=== PATIENT | male | born 1955 | race Caucasian/White ===

== ENCOUNTER → 2023-07-07 | Outpatient (REF) | payer OTHER, SELFPAY ==
[2023-07-07 08:27] LABS: Hemoglobin 10.5 g/dL (13.0-16.5); Mean Corpuscular Hgb 27.6 pg (27.0-32.0); Mean Corpuscular Volume 92.1 fL (80-94); Mean Platelet Vol. 11.3 fl (6.2-12.0); Platelet Count 181 K/mm3 (150-450); RBC Distribution Width CV 18.5 % (11.6-14.6); RBC Distribution Width SD 63.1 fl (35.1-43.9); White Blood Count 4.9 K/mm3 (4.4-11.0)
[2023-07-07 08:50] LABS: Vitamin D,25 Hydroxy 79.7 ng/mL
[2023-07-07 08:55] LABS: ALB/GLOB Ratio 0.9 RATIO (0.9-2.4); AST(SGOT) 16 U/L (15-37); Alanine Aminotransfer ALT/SGPT 35 U/L (16-61); Albumin, Serum 2.6 g/dL (3.2-5.0); Alkaline Phosphatase 57 U/L (45-117); Anion Gap 6 (5-15); BUN 13 mg/dL (7-18); Calcium,Total 8.4 mg/dL (8.5-10.1); Chloride 103 mmol/L (98-107); Cholesterol 144 mg/dL (200); Creatinine, Serum 0.72 mg/dL (0.70-1.30); EST Glomerular Filtration Rate 115 mL/min (>60); Est Glom Filt Rate - Afr Amer 140 mL/min (>60); Glucose 97 mg/dL (74-106); High Density Lipoprotein 57 mg/dL; Potassium 3.7 mmol/L (3.5-5.1); Protein, Total 5.6 g/dL (6.4-8.2); Sodium Level 140 mmol/L (136-145); T4 Free Direct 1.24 ng/dL (0.76-1.46); Thyroid Stim Hormone (TSH) 8.69 uIU/mL (0.358-3.74); Triglycerides 68 mg/dL; Very Low Density Lipoprotein 14 mg/dL (5-40)
== END ==
PROVIDERS: Visit Provider Family Medicine
DX: E78.5 Hyperlipidemia, unspecified (principal); E55.9 Vitamin D deficiency, unspecified; I10 Essential (primary) hypertension; C90.02 Multiple myeloma in relapse; E03.9 Hypothyroidism, unspecified; Z79.899 Other long term (current) drug therapy
CPT/HCPCS: 36415; 80053; 80061; 82306; 84439; 84443; 85027

== ENCOUNTER 2023-07-17 03:50 | Emergency (ER) | payer OTHER, SELFPAY ==
[2023-07-17 03:51] VITALS: BP 135/92; PULSE 82; RESP 16; TEMP 36.6; O2SAT 99
--- NOTE | 2023-07-17 04:19 | EX.ED.DYSGE1 ---
HPI History of Present Illness Chief Complaint: Complaint Informant: patient and EMS Narrative Narrative: Patient is a 68-year-old male from assisted living with history of multiple myeloma and chronic urinary retention with chronic indwelling Humphries catheter. He states that he emptied his catheter with his shower this evening around 6 or 7 PM. He states after that he had mild increasing pain to his abdomen and noticed that his catheter was not flowing. He states around 3 in the morning the pain became more severe and he noticed that there was still no urine within the bag and therefore was concerned that his catheter had become dislodged or blocked EMS was called to bring the patient in for evaluation [facility] Medical History (Updated 07/17/23 @ 07:[address] Migue Metcalf, DO) Anemia Back pain DVT (deep venous thrombosis) Hypercholesteremia Hypertension Hypothyroidism Multiple myeloma Paraplegia Home Medications acetaminophen 500 mg capsule 500 mg PO Q6H PRN fever or pain 07/08/23 [History Last Taken Unknown] acyclovir 400 mg tablet 400 mg PO Q12H 07/08/23 [History Last Taken Unknown] amlodipine 10 mg tablet 10 mg PO DAILY 07/08/23 [History Last Taken Unknown] ascorbic acid (vitamin C) 1,000 mg tablet 1 g PO Q6H 07/08/23 [History Last Taken Unknown] atorvastatin 10 mg tablet 10 mg PO DAILY 07/08/23 [History Last Taken Unknown] cholecalciferol (vitamin D3) 125 mcg (5,000 unit) capsule 125 mcg PO DAILY 07/08/23 [History Last Taken Unknown] dexamethasone 4 mg tablet 10 mg PO QWEEK 07/08/23 [History Last Taken Unknown] diphenhydramine HCl 25 mg capsule (Benadryl) 25 mg PO ONCE PRN itching 07/08/23 [History Last Taken Unknown] gabapentin 100 mg capsule 100 mg PO TID 07/08/23 [History Last Taken Unknown] ibuprofen 400 mg tablet 400 mg PO Q8H PRN pain 07/08/23 [History Last Taken Unknown] magnesium oxide 800 mg PO QHS 07/08/23 [History Last Taken Unknown] melatonin 3 mg capsule 6 mg PO HS 07/08/23 [History Last Taken Unknown] metoprolol tartrate 50 mg tablet 50 mg PO BID 07/08/23 [History Last Taken Unknown] omeprazole 20 mg tablet,delayed release 20 mg PO DAILY 07/08/23 [History Last Taken Unknown] oxycodone 5 mg tablet 5 mg PO Q6H PRN pain 07/08/23 [History Last Taken Unknown] sennosides 8.6 mg-docusate sodium 50 mg tablet (Senna Plus) 1 tab-cap PO BID 07/08/23 [History Last Taken Unknown] simethicone 80 mg chewable tablet (Gas Relief (simethicone)) 80 mg PO TID PRN abdominal distention 07/08/23 [History Last Taken Unknown] Disability Placard #1 ea 07/12/23 [Rx Last Taken Unknown] ferrous sulfate 325 mg (65 mg iron) tablet 325 mg PO DAILY 07/12/23 [History Last Taken Unknown] apixaban 5 mg tablet (Eliquis) 5 mg PO BID 07/17/23 [History Last Taken Unknown] Allergy/AdvReac Type Severity Reaction Status Date / Time No Known Allergies Allergy Verified 07/17/23 03:54 Family History (Updated 07/12/23 @ 10:27 by Lia Franz) Mother Follicular lymphoma Father Hypertension Heart disease Brother Hypertension Other Cancer Surgical History H/O laminectomy History of cholecystectomy Social History (Updated 07/12/23 @ 10:28 by Lia Franz) housing: assisted living facility Smoking Status: Never smoker alcohol intake: former ROS ROS ED Constitutional Constitutional ED: Denies chills or fever(s) ENT ENT ED: Denies sore throat Cardiovascular Cardiovascular: Denies chest pain Respiratory/Chest Respiratory/Chest: Denies cough or dyspnea Gastrointestinal Gastrointestinal: Reports abdominal pain; Denies diarrhea, nausea or vomiting Musculoskeletal Musculoskeletal: Denies back pain Integumentary Denies rash Neurologic Neurologic: Denies headache(s) Hematologic/Lymphatic Hematologic/Lymphatic: Reports easy bleeding and easy bruising EXAM Physical Exam Const Vital Signs: 07/17/23 03:51 Temperature 97.9 F Temperature Source Temporal Pulse Rate 82 Respiratory Rate 16 Blood Pressure 135/92 H Blood Pressure Mean 106 Pulse Ox 99 Oxygen Delivery Method Room Air Positive well nourished and well developed General Appearance ED: well developed HEENT HEENT Narrative: Normocephalic atraumatic Eyes PERRL and EOMs intact bilaterally General Eye ED: Negative for scleral icterus Neck supple Resp normal respiratory effort and clear to auscultation bilaterally Cardio regular rate and regular rhythm GI non-distended GI Narrative: Abdomen is overall soft with the exception of midline lower abdominal distention in the suprapubic region consistent with a distended bladder. There is pain on palpation at the site. Remainder of the abdominal exam is nontender and soft with normal active bowel sounds. No guarding or pulsatile mass noted Auscultation: normoactive bowel sounds Palpation: soft Narrative: No blood or discharge from the urethral meatus no testicular swelling or masses noted no soft tissue changes to suggest Marcelo's gangrene Back/Spine no CVA tenderness Extremity normal to inspection Neuro oriented x3 and CN's II-XII intact bilaterally Sensorium / Orientation: alert Psych mental status grossly normal Skin no rashes or lesions noted MDM MDM MDM Narrative Medical decision making narrative: Patient presented to the ER hypertensive otherwise with stable vitals. History and exam is consistent with a displacement or clogging of his Humphries catheter tubing. Secondary to this the catheter was removed and a new one placed. Following placement of the catheter there was 500 cc of clear urine obtained and resolution of the patient's organomegaly and abdominal pain. As patient's only had obstruction/retention for a few hours concern for acute kidney injury is low and therefore do not feel need for basic laboratory studies. At this time with improvement of pain and resolution of his retention there is no need for further evaluation in the ER patient is otherwise safe for discharge back to assisted living. History & Record Review Discussion w/independent historian: Patient Discharge Plan Triage Chief Complaint: Complaint ED Provider: Migue Metcalf Dx/Rx/DC Orders Clinical Impression: Humphries catheter problem, Acute on chronic urinary retention, Hypertension, Multiple myeloma Instructions: ED Humphries Catheter, Care, ED Urinary Retention, Male Prescriptions: No Action ferrous sulfate 325 mg (65 mg iron) tablet 325 mg PO DAILY acetaminophen 500 mg capsule 500 mg PO Q6H PRN (Reason: fever or pain) acyclovir 400 mg tablet 400 mg PO Q12H amlodipine 10 mg tablet 10 mg PO DAILY atorvastatin 10 mg tablet 10 mg PO DAILY diphenhydramine HCl [Benadryl] 25 mg capsule 25 mg PO ONCE PRN (Reason: itching) Rx Instructions: 1 hour before Darzalex injection dexamethasone 4 mg tablet 10 mg PO QWEEK Rx Instructions: Take prior to coming to office for treatment gabapentin 100 mg capsule 100 mg PO TID ibuprofen 400 mg tablet 400 mg PO Q8H PRN (Reason: pain) magnesium oxide 400 mg magnesium tablet 800 mg PO QHS melatonin 3 mg capsule 6 mg PO HS metoprolol tartrate 50 mg tablet 50 mg PO BID omeprazole 20 mg tablet,delayed release (DR/EC) 20 mg PO DAILY oxycodone 5 mg tablet 5 mg PO Q6H PRN (Reason: pain) sennosides-docusate sodium [Senna Plus] 8.6-50 mg tablet 1 tab-cap PO BID simethicone [Gas Relief (simethicone)] 80 mg tablet,chewable 80 mg PO TID PRN (Reason: abdominal distention) ascorbic acid (vitamin C) 1,000 mg tablet 1 g PO Q6H cholecalciferol (vitamin D3) 125 mcg (5,000 unit) capsule 125 mcg PO DAILY Eliquis 5 mg tablet 5 mg PO BID (DME) Disability Placard See Rx Instructions .Route .MEDSUPPLY Qty: 1 0RF Rx Instructions: Lifetime Primary Care Provider: Iraida Balderas Referrals: Iraida Balderas MD [Primary Care Provider] - Disposition Disposition: Home, Self Care Discharge Date/Time: 07/17/23 06:57
--- NOTE | 2023-07-17 05:25 | ED.RN ---
report to jacque lowe
== END 2023-07-17 06:57 | disposition home or self-care (01) ==
PROVIDERS: Emergency Provider Emergency Medicine; PCP Family Medicine; Visit Provider Emergency Medicine
DX: T83.018A Breakdown (mechanical) of other urinary catheter, initial encounter (principal); C90.00 Multiple myeloma not having achieved remission; R33.9 Retention of urine, unspecified; I10 Essential (primary) hypertension; E78.00 Pure hypercholesterolemia, unspecified; Z90.49 Acquired absence of other specified parts of digestive tract
CPT/HCPCS: 51702; 99285

== ENCOUNTER → 2023-08-04 | Outpatient (CLI) | payer MEDICARE, SELFPAY ==
--- NOTE | 2023-08-04 08:40 | RAD_ITS ---
EXAM: XR BONE SURVEY, COMPLETE CLINICAL INDICATION: MULTIPLE MYELOMA ON TREATMENT TECHNIQUE: Multiple views of the bones of the axial and appendicular skeleton. COMPARISON: No relevant prior studies available. FINDINGS: BONES/JOINTS: There is hardware in the upper thoracic spine show posterior fusion. There is a chronic compression deformity of a midthoracic vertebral body. SOFT TISSUES: Unremarkable. RAD/Bone Survey Comp(Axial&Append) IMPRESSION: No acute findings in the skeleton. Electronically Signed: Joss Mcclendon MD at 23:57 EST ,
== END | disposition home or self-care (01) ==
PROVIDERS: PCP Family Medicine; Referring Provider Internal Medicine Hematology & Oncology; Visit Provider Internal Medicine Hematology & Oncology
DX: C90.00 Multiple myeloma not having achieved remission (principal)
CPT/HCPCS: 77075

== ENCOUNTER → 2023-08-06 | Outpatient (REF) | payer MEDICARE, SELFPAY ==
[2023-08-06 07:50] LABS: Hematocrit 34.1 % (40-54); Hemoglobin 10.4 g/dL (13.0-16.5); Mean Corp Hgb Conc 30.5 g/dL (32-36); Mean Corpuscular Hgb 27.5 pg (27.0-32.0); Mean Corpuscular Volume 90.2 fL (80-94); Mean Platelet Vol. 10.2 fl (6.2-12.0); Platelet Count 223 K/mm3 (150-450); RBC Distribution Width CV 17.5 % (11.6-14.6); RBC Distribution Width SD 57.7 fl (35.1-43.9); Red Blood Count 3.78 M/mm3 (4.6-6.2); White Blood Count 10.8 K/mm3 (4.4-11.0)
[2023-08-06 08:10] LABS: AST(SGOT) 7 U/L (15-37); Alanine Aminotransfer ALT/SGPT 14 U/L (16-61); Albumin, Serum 2.9 g/dL (3.2-5.0); Alkaline Phosphatase 52 U/L (45-117); Anion Gap 3 (5-15); BUN 20 mg/dL (7-18); Calcium,Total 8.9 mg/dL (8.5-10.1); Chloride 106 mmol/L (98-107); EST Glomerular Filtration Rate 103 mL/min (>60); Est Glom Filt Rate - Afr Amer 124 mL/min (>60); Globulin 2.9 g/dL (2.2-4.2); Glucose 119 mg/dL (74-106); Potassium 4.2 mmol/L (3.5-5.1); Protein, Total 5.8 g/dL (6.4-8.2); Sodium Level 140 mmol/L (136-145)
== END ==
PROVIDERS: PCP Family Medicine; Visit Provider Family Medicine
DX: R33.9 Retention of urine, unspecified (principal); C90.02 Multiple myeloma in relapse; K21.9 Gastro-esophageal reflux disease without esophagitis; C79.52 Secondary malignant neoplasm of bone marrow; I10 Essential (primary) hypertension; E78.5 Hyperlipidemia, unspecified
CPT/HCPCS: 36415; 80053; 85027

== ENCOUNTER → 2023-08-13 | Outpatient (REF) | payer OTHER, SELFPAY ==
[2023-08-13 08:16] LABS: Hemoglobin 9.8 g/dL (13.0-16.5); Mean Corp Hgb Conc 30.6 g/dL (32-36); Mean Corpuscular Hgb 27.9 pg (27.0-32.0); Mean Corpuscular Volume 91.2 fL (80-94); Platelet Count 143 K/mm3 (150-450); RBC Distribution Width CV 17.7 % (11.6-14.6); RBC Distribution Width SD 59.4 fl (35.1-43.9); Red Blood Count 3.51 M/mm3 (4.6-6.2); White Blood Count 3.3 K/mm3 (4.4-11.0)
[2023-08-13 11:15] LABS: AST(SGOT) 7 U/L (15-37); Alanine Aminotransfer ALT/SGPT 14 U/L (16-61); Albumin, Serum 2.7 g/dL (3.2-5.0); Alkaline Phosphatase 53 U/L (45-117); Anion Gap 6 (5-15); BUN 13 mg/dL (7-18); BUN/Creat Ratio 16.8 RATIO (10-20); Calcium,Total 8.5 mg/dL (8.5-10.1); Chloride 107 mmol/L (98-107); Creatinine, Serum 0.77 mg/dL (0.70-1.30); EST Glomerular Filtration Rate 107 mL/min (>60); Est Glom Filt Rate - Afr Amer 130 mL/min (>60); Globulin 2.7 g/dL (2.2-4.2); Glucose 101 mg/dL (74-106); Potassium 3.9 mmol/L (3.5-5.1); Prealbumin 19.8 mg/dL (20.0-40.0); Protein, Total 5.4 g/dL (6.4-8.2); Sodium Level 142 mmol/L (136-145); Thyroid Stim Hormone (TSH) 2.79 uIU/mL (0.358-3.74)
== END ==
PROVIDERS: PCP Family Medicine; Visit Provider Family Medicine
DX: I10 Essential (primary) hypertension (principal); E78.5 Hyperlipidemia, unspecified; E03.9 Hypothyroidism, unspecified; C90.20 Extramedullary plasmacytoma not having achieved remission; C79.52 Secondary malignant neoplasm of bone marrow; Z79.899 Other long term (current) drug therapy
CPT/HCPCS: 36415; 80053; 84134; 84443; 85027

== ENCOUNTER 2023-08-26 10:45 | Outpatient (RCR) | payer MEDICARE, SELFPAY ==
[2023-08-12 09:02] VITALS: BP 92/40; PULSE 55; RESP 16; TEMP 36.4; BMI 27.4
--- NOTE | 2023-08-12 11:52 | HP.PCM_ITS ---
History of Present Illness Date of Service: 08/12/23 Chief Complaint: Non healing surgical wound History of Wound: Mr. Barron is a 68-year-old who was referred to this facility due to nonhealing surgical wound. Had surgery in October due to multiple myeloma. Surgery was uneventful with most of the surgical site healed but 2 areas which have not healed. He states that he has had wound dressings down to the area including a wound VAC. Not particularly sure what can address since he has had. He is not sure how much drainage he is getting from the area either. Currently resides in an assisted living facility. Still follows up closely with oncology and is on monthly chemotherapy regimen and dexamethasone. Had also had radiation therapy to the area. He feels well otherwise. States that he eats good. [facility] Medical History (Updated 08/12/23 @ 13:[address] Te Shah MD) Anemia Back pain DVT (deep venous thrombosis) History of radiation therapy Hypercholesteremia Hypertension Hypothyroidism Multiple myeloma Non-healing surgical wound Paraplegia Home Medications acetaminophen 500 mg capsule 500 mg PO Q6H PRN fever or pain 07/08/23 [History Last Taken Unknown] acyclovir 400 mg tablet 400 mg PO Q12H 07/08/23 [History Last Taken Unknown] amlodipine 10 mg tablet 10 mg PO DAILY 07/08/23 [History Last Taken Unknown] ascorbic acid (vitamin C) 1,000 mg tablet 1 g PO BID 07/08/23 [History Last Taken Unknown] cholecalciferol (vitamin D3) 125 mcg (5,000 unit) capsule 125 mcg PO DAILY 07/08/23 [History Last Taken Unknown] diphenhydramine HCl 25 mg capsule (Benadryl) 25 mg PO ONCE PRN itching 07/08/23 [History Last Taken Unknown] gabapentin 100 mg capsule 100 mg PO TID 07/08/23 [History Last Taken Unknown] ibuprofen 400 mg tablet 400 mg PO Q8H PRN pain 07/08/23 [History Last Taken Unknown] magnesium oxide 250 mg PO QHS 07/08/23 [History Last Taken Unknown] melatonin 3 mg capsule 6 mg PO HS 07/08/23 [History Last Taken Unknown] metoprolol tartrate 50 mg tablet 50 mg PO BID 07/08/23 [History Last Taken Unknown] omeprazole 20 mg tablet,delayed release 20 mg PO DAILY 07/08/23 [History Last Taken Unknown] oxycodone 5 mg tablet 5 mg PO Q6H PRN pain 07/08/23 [History Last Taken Unknown] sennosides 8.6 mg-docusate sodium 50 mg tablet (Senna Plus) 1 tab-cap PO BID 07/08/23 [History Last Taken Unknown] simethicone 80 mg chewable tablet (Gas Relief (simethicone)) 80 mg PO TID PRN abdominal distention 07/08/23 [History Last Taken Unknown] Disability Placard #1 ea 07/12/23 [Rx Last Taken Unknown] ferrous sulfate 325 mg (65 mg iron) tablet 325 mg PO DAILY 07/12/23 [History Last Taken Unknown] apixaban 5 mg tablet (Eliquis) 5 mg PO BID 07/17/23 [History Last Taken Unknown] dexamethasone 4 mg tablet 20 mg (5 x 4 mg) PO .COMPLEX #30 tabs 08/04/23 [Rx Last Taken Unknown] baclofen 5 mg tablet 5 mg PO BID 08/12/23 [History Last Taken Unknown] benzonatate 200 mg capsule 200 mg PO TID 08/12/23 [History Last Taken Unknown] calcium carbonate 600 mg calcium (1,500 mg) tablet 600 mg PO BID 08/12/23 [History Last Taken Unknown] lenalidomide 15 mg capsule (Revlimid) 15 mg PO .Q21 DAYS 08/12/23 [History Last Taken Unknown] levothyroxine 100 mcg tablet (Levo-T) 100 mcg PO DAILY 08/12/23 [History Last Taken Unknown] magnesium hydroxide 400 mg/5 mL oral suspension (Milk of Magnesia) 30 ml PO DAILY PRN constipation 08/12/23 [History Last Taken Unknown] polyethylene glycol 3350 17 gram/dose oral powder (ClearLax) 17 g PO DAILY 08/12/23 [History Last Taken Unknown] Allergy/AdvReac Type Severity Reaction Status Date / Time No Known Allergies Allergy Verified 08/12/23 09:19 Family History Mother Follicular lymphoma Father Hypertension Heart disease Brother Hypertension Other Cancer Surgical History H/O laminectomy History of cholecystectomy Social History housing: assisted living facility Smoking Status: Never smoker alcohol intake: former ROS Constitutional Constitutional: Denies excessive sweating, fatigue, headache(s), lethargy or poor appetite Eyes Eyes: Denies change in vision, discharge from eye(s), double vision, excessive blinking, exophthalmos, itchy eyes or loss of vision ENT HEENT: Denies disequillibrium, dizziness, epistaxis, foreign body in nose, hearing loss, hoarseness, lip swelling or loss taste/smell Cardiovascular Cardiovascular: Denies bluish discoloration of hand/feet, cold extremities, cyanosis, dizziness or erythema on extremities Respiratory/Chest Respiratory/Chest: Denies excessive phlegm production, hemoptysis, hoarseness, inability to speak, mouth breathing, nail bed cyanosis or pain with cough Gastrointestinal Gastrointestinal: Denies chewing difficulty, coffee ground emesis, cramping, dry heaves, early satiety or excessive flatus Genitourinary Genitourinary: Denies abdominal discomfort or flank pain Musculoskeletal Musculoskeletal: Denies atrophy, extremity pain, joint swelling, muscle cramps or tremors Integumentary Integumentary: Denies change in pigmentation, erythema, furuncle, nail changes or skin pain Neurologic Neurologic: Denies behavior changes, convulsions, disequilibrium, dizziness, headache(s), memory loss or numbness Psychiatric Psychiatric: Denies anxiety, auditory hallucinations, behavioral changes, panic attacks, tactile hallucinations or visual hallucinations Endocrine Endocrinology: Denies cold intolerance, deepening of the voice, excessive sweating, fatigue, increase in ring/shoe/hat size or palpitations Allergic/Immunologic Allergic/Immunologic: Denies itchy eyes, lip swelling, throat swelling, tongue swelling, eczemia or wheezing Vital Signs Vital Signs Vital Signs: 08/12/23 09:02 Temperature 97.6 F L Temperature Source Temporal Pulse Rate 55 L Respiratory Rate 16 Blood Pressure 92/40 L Blood Pressure Mean 57 Blood Pressure Source Monitor Blood Pressure Position Sitting Blood Pressure Location Right Arm Oxygen Delivery Method Room Air Weight Weight: 165 lb Body Mass Index (BMI) 27.4 Physical Exam Narrative ECOG 2, seen with his sister, wheelchair-bound Const alert, oriented x3 and no apparent distress General Appearance: cooperative, well kempt and well developed HEENT normocephalic and head/scalp atraumatic Face and Sinus: normal facial exam Eyes EOMs intact bilaterally General Eye: normal appearance of both eyes Neck full ROM General: normal visual inspection Resp normal respiratory effort, normal air movement and clear to auscultation bilaterally Effort and Inspection: able to speak in complete sentences Cardio regular rate and regular rhythm GI soft to palpation, non-tender and non-distended Bladder / Kidney Exam: catheter in place Extremity General Extremity: cyanosis and edema Skin Wounds: wounds noted Neuro oriented x3 and CN's II-XII intact bilaterally Neuro Narrative: Patient is paraplegic, unable to left leg off the floor to the wheelchair foot rest and needed assistance from his sister Speech: speech normal Gait (Neuro): unable to assess gait and other Wheelchair-bound Psych mental status grossly normal, thought process normal, cooperative, affect normal and speech normal Debridement Note Debridement Note Wound debrided: Upper back (superior cervical) Type of Debridement: Excisional debridement Anesthesia Used: 5% Lidocaine Gel Depth: Down to and including healthy tissue and in the subcutaneous layer Percentage of wound debrided: 100 Instrument Used: 5mm curette Tissue Removed: Slough and devitalized tissue Severity: Fat Layer Exposed Bleeding Controlled with: Pressure and Compression and gauze Patient tolerated procedure: Patient tolerated procedure well Post-Debridement Measurements and Additional Note: Post-Debridement Measurements/Treatment - Nurse 1 - General Ulcer Assessment Start: 08/12/23 09:02 Freq: Status: Active Protocol: RAUL Activity Type Activity Date Activity User E-sign Co-sign Detail Recorded Client Recorded Date Recorded By Document 08/12/23 09:02 [facility] Desktop 08/12/23 09:17 [facility] 08/12/23 09:02 - Today's Visit Information Type of service Follow-up Visit (Physician/CLEAT THROWER ) Arrival Mode Wheelchair Transfer Assistance None Patient Identification Verified (Name & Yes ) Patient Requires Transmission-Based No Precautions Height and Weight Height 5 ft 5 in Weight 165 lb Weight in Pounds 165.0 lbs Body Mass Index (BMI) 27.4 BMI Classification Overweight BSA - Sean 1.82 Vital Signs Temperature (97.8 F-99.1 F) 97.6 F L Temperature Source Temporal Pulse Rate (60-100) 55 L Pulse Location Monitor Respiratory Rate (12-18) 16 Respiratory rate source Observation Oxygen Delivery Method Room Air Blood Pressure (90/60-120/80) 92/40 L Blood Pressure Mean 57 Source Monitor Position Sitting Blood Pressure Location Right Arm History Since Last Visit- (Skip if this is Patient's initial visit) Left Footwear Regular Shoe Right Footwear Regular Shoe Pain Scale: 0-10 Numeric Is Patient Pain Free? Yes Communication Assessment Preferred language [place]i [employer] Required No Able to Read Yes Able to Write Yes Communication Tools None Right Hearing Abillity Normal Left Hearing Abillity Normal Visual Assistive Devices Glasses Teaching Assessment Preferences Verbal,Written, Audio/Visual, Demonstration Barriers to Learning None Readiness To Learn Excellent Willingness to Engage in Self Management High Activies Readiness to Engage in Self Management High Activities Anxiety Level Calm Cooperation Cooperative Perception Coherent Interest in Health Problem Asks Questions Education Importance Acknowledges Need Does Patient Smoke tobacco or other No substances Smoking Status Never smoker Is Patient Diabetic No Culture/Tenriism/Linemarker Cultural/Tenriism Needs that may affect No Treatment Plan Teaching: Wound Center *Welcome to the Wound Center -Person Taught Patient -Teaching Method Discussion -Response to teaching Verbalize understanding Welcome to the Wound Care Center Sami WC - Nurse 1 - General Ulcer Measurement Start: 08/12/23 09:02 Freq: Status: Active Protocol: Activity Type Activity Date Activity User E-sign Co-sign Detail Recorded Client Recorded Date Recorded By Document 08/12/23 09:02 [facility] Desktop 08/12/23 09:17 [facility] 08/12/23 09:02 Wound Center Nurse 1 #2- CERVICAL INFERIOR WOUND (SURGICAL) -Combined with other wound No -Current Size (cm) - Length 0.6 -Current Size (cm) - Width 0.5 -Current Size (cm) - Depth 0.8 -Total Square Cm 0.30 -Date of Last Picture (Recall this 08/12/23 field) -Photo Taken Yes -Epithelialization None Present -Tunneling No -Undermining/Tunneling No -Circular Undermining No -Exudate Amt Large -Exudate Type Serosanguineous -Wound Margin Distinct, Outline Attached -Granulation Amt Large (67-100%) -Granulation Quality Red -Structure Exposed Fat Layer Exposed -Texture (Ritika-wound Skin Appearance) Assessed, Scarring -Moisture (Ritika-wound Skin Appearance) Assessed -Color (Ritika-wound Skin Appearance) Assessed -Temperature (Ritika-wound Skin No Abnormality Appearance) (Pt Warm) -Tenderness on Palpation (Ritika-wound No Skin Appearance) -Ulcer Cleansing Soap and Water -Foul Odor after Cleansing No -Anesthetic Used 5% Lidocaine Gel #1- SUPERIOR CERIVICAL SPINE (SURGICAL) -Combined with other wound No -Current Size (cm) - Length 2.3 -Current Size (cm) - Width 1.3 -Current Size (cm) - Depth 0.1 -Total Square Cm 2.99 -Date of Last Picture (Recall this 08/12/23 field) -Photo Taken Yes -Epithelialization None Present -Tunneling No -Undermining/Tunneling No -Circular Undermining No -Exudate Amt Large -Exudate Type Serosanguineous -Wound Margin Distinct, Outline Attached -Structure Exposed Fat Layer Exposed -Texture (Ritika-wound Skin Appearance) Assessed, Scarring -Moisture (Ritika-wound Skin Appearance) Assessed -Color (Ritika-wound Skin Appearance) Assessed -Temperature (Ritika-wound Skin No Abnormality Appearance) (Pt Warm) -Tenderness on Palpation (Ritika-wound No Skin Appearance) -Ulcer Cleansing Soap and Water -Foul Odor after Cleansing No -Anesthetic Used 5% Lidocaine Gel WC - Nurse 2 - General Ulcer CM Notes Start: 08/12/23 09:02 Freq: Status: Active Protocol: Activity Type Activity Date Activity User E-sign Co-sign Detail Recorded Client Recorded Date Recorded By Document 08/12/23 09:32 [facility] Desktop 08/12/23 09:47 [facility] 08/12/23 09:32 Wound Center Nurse 2 #2- CERVICAL INFERIOR WOUND (SURGICAL) -Time 09:32 -Correct Patient Yes -Correct Side, Site, Position Yes -Correct Procedure Yes -Procedure Performed Yes -Type of Procedure Debridement -Clinical Debridement Subcutaneous -Tissue Removed Subcutaneous -Post Debridement (cm) - Length 0.6 -Post Debridement (cm) - Width 0.7 -Post Debridement (cm) - Depth 2.5 -Total Square (Post) (cm) 0.42 -Area of Debridement (cm) - Length 0.6 -Area of Debridement (cm) - Width 0.7 -Total Square (Area) (cm) 0.42 -Tunneling No -Undermining/Tunneling No -Circular Undermining No -Wound/Ulcer Outcome Not Healed -Ulcer Cleansing Rinsed/ Irrigated with Saline -Foul Odor after Cleansing No -Bioengineered Tissue No -Bleeding Controlled with Pressure -Treatment Response Procedure Tolerated Well -Debridement - Subq, 1st 20sq cm No #1- SUPERIOR CERIVICAL SPINE (SURGICAL) -Time 09:33 -Correct Patient Yes -Correct Side, Site, Position Yes -Correct Procedure Yes -Procedure Performed Yes -Type of Procedure Debridement -Clinical Debridement Subcutaneous -Tissue Removed Subcutaneous -Post Debridement (cm) - Length 1.6 -Post Debridement (cm) - Width 1.0 -Post Debridement (cm) - Depth 2.5 -Total Square (Post) (cm) 1.60 -Area of Debridement (cm) - Length 1.6 -Area of Debridement (cm) - Width 1.0 -Total Square (Area) (cm) 1.60 -Tunneling No -Undermining/Tunneling No -Circular Undermining No -Wound/Ulcer Outcome Not Healed -Ulcer Cleansing Rinsed/ Irrigated with Saline -Foul Odor after Cleansing No -Bioengineered Tissue No -Bleeding Controlled with Pressure -Treatment Response Procedure Tolerated Well -Debridement - Subq, 1st 20sq cm Yes Pain Scale: 0-10 Numeric Is Patient Pain Free? Yes - Nurse 3 - General Ulcer D/C NN Start: 08/12/23 09:02 Freq: Status: Active Protocol: Activity Type Activity Date Activity User E-sign Co-sign Detail Recorded Client Recorded Date Recorded By Document 08/12/23 09:52 DL Desktop 08/12/23 09:54 DL 08/12/23 09:52 Wound Care Center Nurse 3 #2- CERVICAL INFERIOR WOUND (SURGICAL) -Ulcer Cleansing Rinsed/ Irrigated with Saline -Foul Odor after Cleansing No -Primary Dressing Applied Aquacel Extra, Mepilex Border -Aquacel Extra 1 -Mepilex Border 1 #1- SUPERIOR CERIVICAL SPINE (SURGICAL) -Ulcer Cleansing Rinsed/ Irrigated with Saline -Foul Odor after Cleansing No -Primary Dressing Applied Mepilex Border -Other Dressing aqaucel Ex -Mepilex Border 1 Treatment Response Procedure Tolerated Well Pain Scale: 0-10 Numeric Is Patient Pain Free? Yes - Visit Discharge Discharge Condition Stable Ambulatory Status Wheelchair Facility Type Custodial Care Facility Orders Sent Yes Additional Wound Wound debrided: Upper back (inferior Cervical) Type of Debridement: Excisional debridement Anesthesia Used: 5% Lidocaine Gel Depth: Down to and including healthy tissue and in the subcutaneous layer Percentage of wound debrided: 100 Instrument Used: 5mm curette Tissue Removed: Slough and devitalized tissue Severity: Fat Layer Exposed Amount of bleeding with debridement: Mild Bleeding Controlled with: Pressure Patient tolerated procedure: Patient tolerated procedure well Charges/Coding Visit Charges Office Visits / Consults: [id number] OV L4 New Procedures Integumentary [id number]: [id number] Marley subq tissue 20 sq cm/< Assessment/Plan Assessment/Plan (1) Non-healing surgical wound: CODE(S): T81.89XA - Other complications of procedures, not elsewhere classified, initial encounter QUALIFIERS: Encounter type: initial encounter Qualified Code(s): T81.89XA - Other complications of procedures, not elsewhere classified, initial encounter (2) Multiple myeloma: CODE(S): C90.00 - Multiple myeloma not having achieved remission (3) History of radiation therapy: CODE(S): Z92.3 - Personal history of irradiation (4) Paraplegia: CODE(S): G82.20 - Paraplegia, unspecified PLAN: Plan Debridement done as documented above, procedure was well-tolerated. No significant/clinical concerns for infection at this time, following debridement wound appeared really clean. Will hold off culture and reevaluate need for culture at next visit. Concern for delayed wound healing due to underlying cancer, radiation therapy and chronic wound. Also currently on chronic steroid treatment. Aquacel extra daily for now, cover with gauze and tape. Change daily to twice daily depending on drainage. Prealbumin level ordered. Ariel twice daily recommended. Vitamin C, D and zinc also recommended, he voiced understanding. His questions were answered and he was advised to let us know if he has any further questions or concerns. Follow-up in 2 weeks due to the holiday or sooner if needed. This note was generated with [employer] software. It may contain incorrect words, spelling, and punctuation that were not noted in checking the note before signing.
[2023-08-26 10:32] VITALS: RESP 18; TEMP 36.2; BMI 27.4
--- NOTE | 2023-08-26 11:36 | PN.PCM_ITS ---
History of Present Illness Date of Service: 08/26/23 Chief Complaint: Non healing surgical wound History of Wound: Mr. Barron is a 68-year-old who was referred to this facility due to nonhealing surgical wound. Had surgery in October due to multiple myeloma. Surgery was uneventful with most of the surgical site healed but 2 areas which have not healed. He states that he has had wound dressings down to the area including a wound VAC. Not particularly sure what type of dressings he has had. He is not sure how much drainage he is getting from the area either. Currently resides in an assisted living facility. Still follows up closely with oncology and is on monthly chemotherapy regimen and dexamethasone. Had also had radiation therapy to the area. He feels well otherwise. States that he eats good. Progress of Wound: No new concerns at this time. Largely stable. Objective Data Objective Data Vital Signs: Vital Signs Temp Pulse Resp BP O2 Del Method 97.2 F L 55 L 18 92/40 L Room Air 08/26/23 10:32 08/12/23 09:02 08/26/23 10:32 08/12/23 09:02 08/12/23 09:02 Oxygen Delivery Method Room Air Weight: 165 lb Body Mass Index (BMI) 27.4 Charges/Coding Procedures Integumentary 111xxx-113xx: [id number] Marley subq tissue 20 sq cm/< Physical Exam Const alert, oriented x3 and no apparent distress General Appearance: cooperative, well kempt and well developed HEENT normocephalic and head/scalp atraumatic Face and Sinus: normal facial exam Eyes EOMs intact bilaterally General Eye: normal appearance of both eyes Neck full ROM General: normal visual inspection Resp normal respiratory effort, normal air movement and clear to auscultation bilaterally Effort and Inspection: able to speak in complete sentences Extremity General Extremity: edema Skin Wounds: wounds noted Neuro oriented x3 and CN's II-XII intact bilaterally Psych mental status grossly normal, thought process normal, cooperative, affect normal and speech normal Debridement Note Debridement Note Post-Debridement Measurements and Additional Note: Post-Debridement Measurements/Treatment ELSY - Nurse 1 - General Ulcer Assessment Start: 08/12/23 09:02 Freq: Status: Active Protocol: RAUL Activity Type Activity Date Activity User E-sign Co-sign Detail Recorded Client Recorded Date Recorded By Document 08/12/23 09:02 [facility] Desktop 08/12/23 09:17 [facility] Document 08/26/23 10:32 JF Laptop 08/26/23 10:47 JF 08/12/23 08/26/23 09:02 10:32 WC - Today's Visit Information Type of service Follow-up Visit Follow-up Visit (Physician/FIRST GRADE TEACHER (Physician/FIRST GRADE TEACHER ) ) Arrival Mode Wheelchair Wheelchair Transfer Assistance None Patient Identification Verified (Name & Yes Yes ) Patient Requires Transmission-Based No No Precautions Height and Weight Height 5 ft 5 in Weight 165 lb Weight in Pounds 165.0 lbs Body Mass Index (BMI) 27.4 27.4 BMI Classification Overweight Overweight BSA - Sean 1.82 Vital Signs Temperature (97.8 F-99.1 F) 97.6 F L 97.2 F L Temperature Source Temporal Temporal Pulse Rate (60-100) 55 L Pulse Location Monitor Respiratory Rate (12-18) 16 18 Respiratory rate source Observation Observation Oxygen Delivery Method Room Air Blood Pressure (90/60-120/80) 92/40 L Blood Pressure Mean (mm Hg) 57 Source Monitor Position Sitting Blood Pressure Location Right Arm History Since Last Visit- (Skip if this is Patient's initial visit) Have you changed medications since your No last visit? Any new allergies or adverse reactions No Had a fall/change in ADL's that may No increase risk of falls Signs or symptoms of abuse and/or No neglect since last visit Have you been in the hospital since your No last visit? Has dressing in place as prescribed Yes Has compression in place as prescribed N/A Has offloadiing in place as prescribed N/A Experienced any changes in pain level or No management Left Footwear Regular Shoe Regular Shoe Right Footwear Regular Shoe Regular Shoe Pain Scale: 0-10 Numeric Is Patient Pain Free? Yes Yes Communication Assessment Preferred language Khmer Enroller Required No Able to Read Yes Able to Write Yes Communication Tools None Right Hearing Abillity Normal Left Hearing Abillity Normal Visual Assistive Devices Glasses Teaching Assessment Preferences Verbal,Written, Audio/Visual, Demonstration Barriers to Learning None Readiness To Learn Excellent Willingness to Engage in Self Management High Activies Readiness to Engage in Self Management High Activities Anxiety Level Calm Cooperation Cooperative Perception Coherent Interest in Health Problem Asks Questions Education Importance Acknowledges Need Does Patient Smoke tobacco or other No substances Smoking Status Never smoker Is Patient Diabetic No Culture/Yazidism/Nip Wrapper Cultural/Yazidism Needs that may affect No Treatment Plan Teaching: Wound Center *Welcome to the Wound Center -Person Taught Patient -Teaching Method Discussion -Response to teaching Verbalize understanding Welcome to the Wound Care Center English CHIN - Nurse 1 - General Ulcer Measurement Start: 08/12/23 09:02 Freq: Status: Active Protocol: Activity Type Activity Date Activity User E-sign Co-sign Detail Recorded Client Recorded Date Recorded By Document 08/12/23 09:02 [facility] Desktop 08/12/23 09:17 BMF Document 08/26/23 10:32 Laptop 08/26/23 10:47 08/12/23 08/26/23 09:02 10:32 Wound Center Nurse 1 #2- CERVICAL INFERIOR WOUND (SURGICAL) -Combined with other wound No No -Current Size (cm) - Length 0.6 0.5 -Current Size (cm) - Width 0.5 0.6 -Current Size (cm) - Depth 0.8 2.0 -Total Square Cm 0.30 0.30 -Date of Last Picture (Recall this 08/12/23 field) -Photo Taken Yes No -Epithelialization None Present None Present -Tunneling No No -Undermining/Tunneling No No -Circular Undermining No No -Exudate Amt Large Large -Exudate Type Serosanguineous Serosanguineous -Wound Margin Distinct, Flat & Intact Outline Attached -Granulation Amt Large (67-100%) Medium (34-66%) -Granulation Quality Red Red -Slough/Fibrin Yes -Necrosis Amt Medium (34-66%) -Necrotic Tissue Type Adherent Slough -Structure Exposed Fat Layer N/A Exposed -Texture (Ritika-wound Skin Appearance) Assessed, Assessed Scarring -Moisture (Ritika-wound Skin Appearance) Assessed Assessed,Dry/ Scaly -Color (Ritika-wound Skin Appearance) Assessed Assessed -Temperature (Ritika-wound Skin No Abnormality No Abnormality Appearance) (Pt Warm) (Pt Warm) -Tenderness on Palpation (Ritika-wound No No Skin Appearance) -Ulcer Cleansing Soap and Water Wound Cleanser -Foul Odor after Cleansing No No -Anesthetic Used 5% Lidocaine 5% Lidocaine Gel Gel #1- SUPERIOR CERIVICAL SPINE (SURGICAL) -Combined with other wound No No -Current Size (cm) - Length 2.3 2.3 -Current Size (cm) - Width 1.3 1.2 -Current Size (cm) - Depth 0.1 2.0 -Total Square Cm 2.99 2.76 -Date of Last Picture (Recall this 08/12/23 field) -Photo Taken Yes No -Epithelialization None Present None Present -Tunneling No No -Undermining/Tunneling No No -Circular Undermining No No -Exudate Amt Large Large -Exudate Type Serosanguineous Serosanguineous -Wound Margin Distinct, Flat & Intact Outline Attached -Granulation Amt Medium (34-66%) -Granulation Quality Red -Slough/Fibrin Yes -Necrosis Amt Medium (34-66%) -Necrotic Tissue Type Adherent Slough -Structure Exposed Fat Layer N/A Exposed -Texture (Ritika-wound Skin Appearance) Assessed, Assessed Scarring -Moisture (Ritika-wound Skin Appearance) Assessed Assessed,Dry/ Scaly -Color (Ritika-wound Skin Appearance) Assessed Assessed -Temperature (Ritika-wound Skin No Abnormality No Abnormality Appearance) (Pt Warm) (Pt Warm) -Tenderness on Palpation (Ritika-wound No No Skin Appearance) -Ulcer Cleansing Soap and Water Wound Cleanser -Foul Odor after Cleansing No No -Anesthetic Used 5% Lidocaine 5% Lidocaine Gel Gel Lower Limb Edema Present NA WC - Nurse 2 - General Ulcer CM Notes Start: 08/12/23 09:02 Freq: Status: Active Protocol: Activity Type Activity Date Activity User E-sign Co-sign Detail Recorded Client Recorded Date Recorded By Document 08/12/23 09:32 Desktop 08/12/23 09:47 Document 08/26/23 11:09 Desktop 08/26/23 11:24 08/12/23 08/26/23 09:32 11:09 Wound Center Nurse 2 #2- CERVICAL INFERIOR WOUND (SURGICAL) -Time 09:32 11:12 -Correct Patient Yes Yes -Correct Side, Site, Position Yes Yes -Correct Procedure Yes Yes -Procedure Performed Yes Yes -Type of Procedure Debridement Debridement -Clinical Debridement Subcutaneous Subcutaneous -Tissue Removed Subcutaneous Subcutaneous -Post Debridement (cm) - Length 0.6 0.8 -Post Debridement (cm) - Width 0.7 0.9 -Post Debridement (cm) - Depth 2.5 2.1 -Total Square (Post) (cm) 0.42 0.72 -Area of Debridement (cm) - Length 0.6 0.8 -Area of Debridement (cm) - Width 0.7 0.9 -Total Square (Area) (cm) 0.42 0.72 -Tunneling No No -Undermining/Tunneling No No -Circular Undermining No No -Wound/Ulcer Outcome Not Healed Not Healed -Ulcer Cleansing Rinsed/ Rinsed/ Irrigated with Irrigated with Saline Saline -Foul Odor after Cleansing No No -Bioengineered Tissue No No -Bleeding Controlled with Pressure Pressure -Treatment Response Procedure Procedure Tolerated Well Tolerated Well -Offloading No -Debridement - Subq, 1st 20sq cm No No #1- SUPERIOR CERIVICAL SPINE (SURGICAL) -Time 09:33 11:12 -Correct Patient Yes Yes -Correct Side, Site, Position Yes Yes -Correct Procedure Yes Yes -Procedure Performed Yes Yes -Type of Procedure Debridement Debridement -Clinical Debridement Subcutaneous Subcutaneous -Tissue Removed Subcutaneous Subcutaneous -Post Debridement (cm) - Length 1.6 1.8 -Post Debridement (cm) - Width 1.0 1.0 -Post Debridement (cm) - Depth 2.5 2.4 -Total Square (Post) (cm) 1.60 1.80 -Area of Debridement (cm) - Length 1.6 1.8 -Area of Debridement (cm) - Width 1.0 1.0 -Total Square (Area) (cm) 1.60 1.80 -Tunneling No No -Undermining/Tunneling No No -Circular Undermining No No -Wound/Ulcer Outcome Not Healed Not Healed -Ulcer Cleansing Rinsed/ Rinsed/ Irrigated with Irrigated with Saline Saline -Foul Odor after Cleansing No No -Bioengineered Tissue No No -Bleeding Controlled with Pressure Pressure -Treatment Response Procedure Procedure Tolerated Well Tolerated Well -Assistive Device(s) Wheelchair -Debridement - Subq, 1st 20sq cm Yes Yes Pain Scale: 0-10 Numeric Is Patient Pain Free? Yes Yes - Nurse 3 - General Ulcer D/C NN Start: 08/12/23 09:02 Freq: Status: Active Protocol: Activity Type Activity Date Activity User E-sign Co-sign Detail Recorded Client Recorded Date Recorded By Document 08/12/23 09:52 DL Desktop 08/12/23 09:54 DL Document 08/26/23 11:32 BM Desktop 08/26/23 11:32 BMF 08/12/23 08/26/23 09:52 11:32 Wound Care Center Nurse 3 #2- CERVICAL INFERIOR WOUND (SURGICAL) -Ulcer Cleansing Rinsed/ Rinsed/ Irrigated with Irrigated with Saline Saline -Foul Odor after Cleansing No No -Primary Dressing Applied Aquacel Extra, Aquacel Extra, Mepilex Border Mepilex Border -Aquacel Extra 1 1 -Mepilex Border 1 1 #1- SUPERIOR CERIVICAL SPINE (SURGICAL) -Ulcer Cleansing Rinsed/ Rinsed/ Irrigated with Irrigated with Saline Saline -Foul Odor after Cleansing No No -Primary Dressing Applied Mepilex Border Aquacel Extra, Mepilex Border -Other Dressing aqaucel Ex -Aquacel Extra 0 -Mepilex Border 1 0 Treatment Response Procedure Procedure Tolerated Well Tolerated Well Pain Scale: 0-10 Numeric Is Patient Pain Free? Yes Yes WC - Visit Discharge Discharge Condition Stable Stable Ambulatory Status Wheelchair Wheelchair Transportation ECF Facility Type [facility] Facility Orders Sent Yes Assessment/Plan Assessment/Plan (1) Non-healing surgical wound: CODE(S): T81.89XA - Other complications of procedures, not elsewhere classified, initial encounter QUALIFIERS: Encounter type: initial encounter Qualified Code(s): T81.89XA - Other complications of procedures, not elsewhere classified, initial encounter (2) Multiple myeloma: CODE(S): C90.00 - Multiple myeloma not having achieved remission (3) History of radiation therapy: CODE(S): Z92.3 - Personal history of irradiation (4) Paraplegia: CODE(S): G82.20 - Paraplegia, unspecified PLAN: Plan Debridement done as documented above, procedure was well-tolerated. No significant change since his last visit. Cultures taken, will review. Continue Aquacel extra daily for now, cover with gauze and tape. Change daily to twice daily depending on drainage. Prealbumin slightly low, continue Ariel twice daily. Vitamin C, D and zinc also recommended, he voiced understanding. He may be a good candidate for plastic surgery evaluation due to impediments to healing as above. Currently on chemotherapy and history of radiation to the area. His questions were answered and he was advised to let us know if he has any further questions or concerns. Follow-up in 2 weeks or sooner if needed. This note was generated with [employer] software. It may contain incorrect words, spelling, and punctuation that were not noted in checking the note before signing.
== END 2023-08-26 23:59 | disposition home or self-care (01) ==
LOC: WC 10:45
PROVIDERS: PCP Family Medicine; Referring Provider Family Medicine; Visit Provider Internal Medicine
DX: T81.89XA Other complications of procedures, not elsewhere classified, initial encounter (principal); G82.20 Paraplegia, unspecified; C90.00 Multiple myeloma not having achieved remission; E78.00 Pure hypercholesterolemia, unspecified; I10 Essential (primary) hypertension; E03.9 Hypothyroidism, unspecified; Z79.01 Long term (current) use of anticoagulants; Z79.890 Hormone replacement therapy; Z79.899 Other long term (current) drug therapy; Z92.3 Personal history of irradiation; Z86.718 Personal history of other venous thrombosis and embolism
CPT/HCPCS: 11042; 87070; 87075; 87077; 87186; 87205; 99203; G0463

== ENCOUNTER → 2023-08-30 | Outpatient (REF) | payer OTHER, SELFPAY ==
[2023-08-30 08:11] LABS: Absolute Lymphocyte Count 0.34 X10^3/uL (0.83-4.51); Absolute Neutrophil Count 1.4 X10^3/uL (2.0-7.7); Basophil# 0.02 X10^3/uL; Basophil% 0.8 % (0-1); Eosinophils% 8.3 % (0-5); Hematocrit 33.4 % (40-54); Lymphocyte # 0.34 X10^3/ul (0.83-4.51); Lymphocyte % 14.1 % (19-41); Mean Corp Hgb Conc 29.9 g/dL (32-36); Mean Corpuscular Hgb 27.3 pg (27.0-32.0); Mean Corpuscular Volume 91.3 fL (80-94); Mean Platelet Vol. 11.8 fl (6.2-12.0); Monocyte% 16.6 % (0-10); NRBC Flagged by Analyzer 0 % (0-5); Neutrophil # 1.43 X10^3/uL (2.7-7.7); Neutrophil % 59.4 % (47-70); POSITIVE DIFFERENTIAL YES; Platelet Count 194 K/mm3 (150-450); RBC Distribution Width CV 16.7 % (11.6-14.6); RBC Distribution Width SD 56.8 fl (35.1-43.9); Red Blood Count 3.66 M/mm3 (4.6-6.2); White Blood Count 2.4 K/mm3 (4.4-11.0)
[2023-08-30 08:14] LABS: Differential Indicated SCAN CRITERIA MET
[2023-08-31 14:11] LABS: Pathologist Review Reviewed
== END ==
PROVIDERS: PCP Family Medicine
DX: D64.9 Anemia, unspecified (principal); C90.00 Multiple myeloma not having achieved remission
CPT/HCPCS: 36415; 85025

== ENCOUNTER 2023-09-23 10:45 | Outpatient (RCR) | payer MEDICARE, OTHER, SELFPAY ==
[2023-08-27 00:51] VITALS: BP 92/40; PULSE 55; RESP 18; TEMP 36.2; BMI 27.4
--- NOTE | 2023-09-01 09:04 | WC ---
[facility] left a note questioning the lidocaine order, the call was returned today at 0900. The nurse spoken to was informed that the lidocaine order at the top of the order form was for use by wound center staff. They are not to apply lidocaine at the [facility].
[2023-09-09 10:44] VITALS: BP 87/31; PULSE 52; RESP 18; TEMP 36.5; BMI 27.4
--- NOTE | 2023-09-09 12:57 | PN.PCM_ITS ---
History of Present Illness Date of Service: 09/09/23 Chief Complaint: Non healing surgical wound History of Wound: Mr. Barron is a 68-year-old who was referred to this facility due to nonhealing surgical wound. Had surgery in October due to multiple myeloma. Surgery was uneventful with most of the surgical site healed but 2 areas which have not healed. He states that he has had wound dressings down to the area including a wound VAC. Not particularly sure what type of dressings he has had. He is not sure how much drainage he is getting from the area either. Currently resides in an assisted living facility. Still follows up closely with oncology and is on monthly chemotherapy regimen and dexamethasone. Had also had radiation therapy to the area. He feels well otherwise. States that he eats good. Progress of Wound: No new concerns reported at this time. He appears to have had less drainage since his last visit. Objective Data Objective Data Vital Signs: Vital Signs Temp Pulse Resp BP 97.7 F L 52 L 18 87/31 L 09/09/23 10:44 09/09/23 10:44 09/09/23 10:44 09/09/23 10:44 Weight: 165 lb Body Mass Index (BMI) 27.4 Charges/Coding Procedures Integumentary 111xxx-113xx: [id number] Marley subq tissue 20 sq cm/< Physical Exam Const alert, oriented x3 and no apparent distress General Appearance: cooperative, well kempt and well developed HEENT normocephalic and head/scalp atraumatic Face and Sinus: normal facial exam Eyes EOMs intact bilaterally General Eye: normal appearance of both eyes Neck full ROM General: normal visual inspection Resp normal respiratory effort Effort and Inspection: able to speak in complete sentences Skin Wounds: wounds noted Neuro oriented x3 and CN's II-XII intact bilaterally Psych mental status grossly normal, thought process normal, cooperative, affect normal and speech normal Debridement Note Debridement Note Wound debrided: Upper back (superior cervical) Type of Debridement: Excisional debridement Anesthesia Used: 5% Lidocaine Gel Depth: Down to and including healthy tissue and in the subcutaneous layer Percentage of wound debrided: 100 Instrument Used: 5mm curette Tissue Removed: Slough and devitalized tissue Severity: Fat Layer Exposed Bleeding Controlled with: Pressure and Compression and gauze Patient tolerated procedure: Patient tolerated procedure well Post-Debridement Measurements and Additional Note: Post-Debridement Measurements/Treatment WC - Nurse 1 - General Ulcer Assessment Start: 09/09/23 10:44 Freq: Status: Active Protocol: RAUL Activity Type Activity Date Activity User E-sign Co-sign Detail Recorded Client Recorded Date Recorded By Document 09/09/23 10:44 DL Desktop 09/09/23 10:48 DL 09/09/23 10:44 WC - Today's Visit Information Type of service Follow-up Visit (Physician/CHIEF INSPECTOR ) Arrival Mode Wheelchair Transfer Assistance None Patient Identification Verified (Name & Yes ) Patient Requires Transmission-Based No Precautions Height and Weight Body Mass Index (BMI) 27.4 BMI Classification Overweight Vital Signs Temperature (97.8 F-99.1 F) 97.7 F L Temperature Source Temporal Pulse Rate (60-100) 52 L Pulse Location Monitor Respiratory Rate (12-18) 18 Respiratory rate source Observation Blood Pressure (90/60-120/80) 87/31 L Blood Pressure Mean (mm Hg) 49 Source Monitor History Since Last Visit- (Skip if this is Patient's initial visit) Have you changed medications since your No last visit? Any new allergies or adverse reactions No Had a fall/change in ADL's that may No increase risk of falls Signs or symptoms of abuse and/or No neglect since last visit Have you been in the hospital since your No last visit? Has dressing in place as prescribed Yes Has compression in place as prescribed N/A Has offloadiing in place as prescribed N/A Experienced any changes in pain level or No management Pain Scale: 0-10 Numeric Is Patient Pain Free? Yes - Nurse 1 - General Ulcer Measurement Start: 09/09/23 10:44 Freq: Status: Active Protocol: Activity Type Activity Date Activity User E-sign Co-sign Detail Recorded Client Recorded Date Recorded By Document 09/09/23 10:44 DL Desktop 09/09/23 10:48 DL 09/09/23 10:44 Wound Center Nurse 1 #2- CERVICAL INFERIOR WOUND (SURGICAL) -Current Size (cm) - Length 0.7 -Current Size (cm) - Width 0.6 -Current Size (cm) - Depth 1.1 -Total Square Cm 0.42 -Exudate Amt Medium -Exudate Type Serosanguineous -Wound Margin Distinct, Outline Attached -Granulation Amt Medium (34-66%) -Granulation Quality [place] -Necrosis Amt Medium (34-66%) -Necrotic Tissue Type Adherent Slough -Structure Exposed N/A -Texture (Ritika-wound Skin Appearance) Scarring -Moisture (Ritika-wound Skin Appearance) No Abnormality -Color (Ritika-wound Skin Appearance) No Abnormality -Temperature (Ritika-wound Skin No Abnormality Appearance) (Pt Warm) -Tenderness on Palpation (Ritika-wound No Skin Appearance) -Ulcer Cleansing Soap and Water -Foul Odor after Cleansing No -Anesthetic Used 5% Lidocaine Gel #1- SUPERIOR CERIVICAL SPINE (SURGICAL) -Current Size (cm) - Length 1.2 -Current Size (cm) - Width 0.6 -Current Size (cm) - Depth 1.3 -Total Square Cm 0.72 -Exudate Amt Medium -Exudate Type Serosanguineous -Wound Margin Distinct, Outline Attached -Granulation Amt Medium (34-66%) -Granulation Quality [place] -Necrosis Amt Medium (34-66%) -Necrotic Tissue Type Adherent Slough -Structure Exposed N/A -Texture (Ritika-wound Skin Appearance) Scarring -Moisture (Ritika-wound Skin Appearance) No Abnormality -Color (Ritika-wound Skin Appearance) No Abnormality -Temperature (Ritika-wound Skin No Abnormality Appearance) (Pt Warm) -Tenderness on Palpation (Ritika-wound No Skin Appearance) -Ulcer Cleansing Soap and Water -Foul Odor after Cleansing No -Anesthetic Used 5% Lidocaine Gel WC - Nurse 2 - General Ulcer CM Notes Start: 09/09/23 10:44 Freq: Status: Active Protocol: Activity Type Activity Date Activity User E-sign Co-sign Detail Recorded Client Recorded Date Recorded By Document 09/09/23 11:16 Laptop 09/09/23 11:20 09/09/23 11:16 Wound Center Nurse 2 #2- CERVICAL INFERIOR WOUND (SURGICAL) -Time 11:16 -Correct Patient Yes -Correct Side, Site, Position Yes -Correct Procedure Yes -Procedure Performed Yes -Type of Procedure Debridement -Clinical Debridement Subcutaneous -Tissue Removed Subcutaneous -Post Debridement (cm) - Length 0.5 -Post Debridement (cm) - Width 0.7 -Post Debridement (cm) - Depth 2.5 -Total Square (Post) (cm) 0.35 -Area of Debridement (cm) - Length 0.5 -Area of Debridement (cm) - Width 0.7 -Total Square (Area) (cm) 0.35 -Tunneling No -Undermining/Tunneling No -Circular Undermining No -Wound/Ulcer Outcome Not Healed -Ulcer Cleansing Rinsed/ Irrigated with Saline -Foul Odor after Cleansing No -Bioengineered Tissue No -Bleeding Controlled with Pressure -Treatment Response Procedure Tolerated Well -Offloading No -Debridement - Subq, 1st 20sq cm No #1- SUPERIOR CERIVICAL SPINE (SURGICAL) -Time 11:17 -Correct Patient Yes -Correct Side, Site, Position Yes -Correct Procedure Yes -Procedure Performed Yes -Type of Procedure Debridement -Clinical Debridement Subcutaneous -Tissue Removed Subcutaneous -Post Debridement (cm) - Length 1.0 -Post Debridement (cm) - Width 0.7 -Post Debridement (cm) - Depth 2.0 -Total Square (Post) (cm) 0.70 -Area of Debridement (cm) - Length 1.0 -Area of Debridement (cm) - Width 0.7 -Total Square (Area) (cm) 0.70 -Tunneling No -Undermining/Tunneling No -Circular Undermining No -Wound/Ulcer Outcome Not Healed -Ulcer Cleansing Rinsed/ Irrigated with Saline -Foul Odor after Cleansing No -Bioengineered Tissue No -Bleeding Controlled with Pressure -Treatment Response Procedure Tolerated Well -Offloading No -Debridement - Subq, 1st 20sq cm Yes Pain Scale: 0-10 Numeric Is Patient Pain Free? Yes WC - Nurse 3 - General Ulcer D/C NN Start: 09/09/23 10:44 Freq: Status: Active Protocol: Activity Type Activity Date Activity User E-sign Co-sign Detail Recorded Client Recorded Date Recorded By Document 09/09/23 11:33 [facility] Desktop 09/09/23 11:34 [facility] 09/09/23 11:33 Wound Care Center Nurse 3 #2- CERVICAL INFERIOR WOUND (SURGICAL) -Ulcer Cleansing Rinsed/ Irrigated with Saline -Foul Odor after Cleansing No -Primary Dressing Applied Aquacel Extra, Mepilex Border -Aquacel Extra 1 -Mepilex Border 1 #1- SUPERIOR CERIVICAL SPINE (SURGICAL) -Ulcer Cleansing Rinsed/ Irrigated with Saline -Foul Odor after Cleansing No -Primary Dressing Applied Aquacel Extra, Mepilex Border -Aquacel Extra 0 -Mepilex Border 0 Treatment Response Procedure Tolerated Well Pain Scale: 0-10 Numeric Is Patient Pain Free? Yes WC - Visit Discharge Discharge Condition Stable Ambulatory Status Wheelchair Transportation ecf Facility Type [facility] Additional Wound Wound debrided: Upper back (inferior Cervical) Type of Debridement: Excisional debridement Anesthesia Used: 5% Lidocaine Gel Depth: Down to and including healthy tissue and in the subcutaneous layer Percentage of wound debrided: 100 Instrument Used: 5mm curette Tissue Removed: Slough and devitalized tissue Severity: Fat Layer Exposed Amount of bleeding with debridement: Mild Bleeding Controlled with: Pressure Patient tolerated procedure: Patient tolerated procedure well Assessment/Plan Assessment/Plan (1) Non-healing surgical wound: CODE(S): T81.89XA - Other complications of procedures, not elsewhere classified, initial encounter QUALIFIERS: Encounter type: initial encounter Qualified Code(s): T81.89XA - Other complications of procedures, not elsewhere classified, initial encounter (2) Multiple myeloma: CODE(S): C90.00 - Multiple myeloma not having achieved remission (3) History of radiation therapy: CODE(S): Z92.3 - Personal history of irradiation (4) Paraplegia: CODE(S): G82.20 - Paraplegia, unspecified PLAN: Plan Debridement done as documented above, procedure was well-tolerated. Some improvement compared to his last visit however, from the superior ulcer, there is concern for exposed bone/? Broken bone. Imaging ordered. He was also advised to get in touch with his surgeon, operating surgeon is at [place]. For now, continue strep, change daily to twice daily depending on drainage. Prealbumin slightly low, continue Ariel twice daily. Vitamin C, D and zinc also recommended, he voiced understanding. His questions were answered and he was advised to let us know if he has any further questions or concerns. Follow-up in 2 weeks or sooner if needed. This note was generated with [employer] dictation software. It may contain incorrect words, spelling, and punctuation that were not noted in checking the note before signing.
[2023-09-23 10:53] VITALS: BP 114/48; PULSE 50; RESP 18; TEMP 36.3; BMI 27.4
--- NOTE | 2023-09-23 12:51 | PN.PCM_ITS ---
History of Present Illness Date of Service: 09/23/23 Chief Complaint: Non healing surgical wound History of Wound: Mr. Barron is a 68-year-old who was referred to this facility due to nonhealing surgical wound. Had surgery in October due to multiple myeloma. Surgery was uneventful with most of the surgical site healed but 2 areas which have not healed. He states that he has had wound dressings down to the area including a wound VAC. Not particularly sure what type of dressings he has had. He is not sure how much drainage he is getting from the area either. Currently resides in an assisted living facility. Still follows up closely with oncology and is on monthly chemotherapy regimen and dexamethasone. Had also had radiation therapy to the area. He feels well otherwise. States that he eats good. Progress of Wound: No new concerns at this time. No significant changes. Has an appointment with his surgeon on 06 of October. Objective Data Objective Data Vital Signs: Vital Signs Temp Pulse Resp BP 97.4 F L 50 L 18 114/48 L 09/23/23 10:53 09/23/23 10:53 09/23/23 10:53 09/23/23 10:53 Weight: 165 lb Body Mass Index (BMI) 27.4 Charges/Coding Procedures Integumentary 111xxx-113xx: 09151 Marley subq tissue 20 sq cm/< Physical Exam Const alert, oriented x3 and no apparent distress General Appearance: cooperative HEENT normocephalic and head/scalp atraumatic Face and Sinus: normal facial exam Eyes EOMs intact bilaterally General Eye: normal appearance of both eyes Neck full ROM General: normal visual inspection Resp normal respiratory effort Effort and Inspection: able to speak in complete sentences Skin Wounds: wounds noted Neuro oriented x3 and CN's II-XII intact bilaterally Psych mental status grossly normal, thought process normal, cooperative, affect normal and speech normal Debridement Note Debridement Note Wound debrided: Upper back (superior cervical) Type of Debridement: Excisional debridement Anesthesia Used: 5% Lidocaine Gel Depth: Down to and including healthy tissue and in the subcutaneous layer Percentage of wound debrided: 100 Instrument Used: 5mm curette Tissue Removed: Slough and devitalized tissue Severity: Fat Layer Exposed Bleeding Controlled with: Pressure and Compression and gauze Patient tolerated procedure: Patient tolerated procedure well Post-Debridement Measurements and Additional Note: Post-Debridement Measurements/Treatment WC - Nurse 1 - General Ulcer Assessment Start: 09/09/23 10:44 Freq: Status: Active Protocol: RAUL Activity Type Activity Date Activity User E-sign Co-sign Detail Recorded Client Recorded Date Recorded By Document 09/09/23 10:44 DL Desktop 09/09/23 10:48 DL Document 09/23/23 10:53 DL Desktop 09/23/23 11:01 DL 09/09/23 09/23/23 10:44 10:53 WC - Today's Visit Information Type of service Follow-up Visit Follow-up Visit (Physician/LOADING RACK SUPERVISOR (Physician/LOADING RACK SUPERVISOR ) ) Arrival Mode Wheelchair Wheelchair Transfer Assistance None None Patient Identification Verified (Name & Yes Yes ) Patient Requires Transmission-Based No No Precautions Height and Weight Body Mass Index (BMI) 27.4 27.4 BMI Classification Overweight Overweight Vital Signs Temperature (97.8 F-99.1 F) 97.7 F L 97.4 F L Temperature Source Temporal Temporal Pulse Rate (60-100) 52 L 50 L Pulse Location Monitor Monitor Respiratory Rate (12-18) 18 18 Respiratory rate source Observation Observation Blood Pressure (90/60-120/80) 87/31 L 114/48 L Blood Pressure Mean (mm Hg) 49 70 Source Monitor Monitor History Since Last Visit- (Skip if this is Patient's initial visit) Have you changed medications since your No No last visit? Any new allergies or adverse reactions No No Had a fall/change in ADL's that may No No increase risk of falls Signs or symptoms of abuse and/or No No neglect since last visit Have you been in the hospital since your No No last visit? Has dressing in place as prescribed Yes Yes Has compression in place as prescribed N/A N/A Has offloadiing in place as prescribed N/A N/A Experienced any changes in pain level or No No management Pain Scale: 0-10 Numeric Is Patient Pain Free? Yes Yes - Nurse 1 - General Ulcer Measurement Start: 09/09/23 10:44 Freq: Status: Active Protocol: Activity Type Activity Date Activity User E-sign Co-sign Detail Recorded Client Recorded Date Recorded By Document 09/09/23 10:44 DL Desktop 09/09/23 10:48 DL Document 09/23/23 10:53 DL Desktop 09/23/23 11:01 DL 09/09/23 09/23/23 10:44 10:53 Wound Center Nurse 1 #2- CERVICAL INFERIOR WOUND (SURGICAL) -Current Size (cm) - Length 0.7 0.5 -Current Size (cm) - Width 0.6 0.5 -Current Size (cm) - Depth 1.1 2 -Total Square Cm 0.42 0.25 -Exudate Amt Medium Medium -Exudate Type Serosanguineous Yellow/Green -Wound Margin Distinct, Distinct, Outline Outline Attached Attached -Granulation Amt Medium (34-66%) None Present (0 %) -Granulation Quality [place] -Necrosis Amt Medium (34-66%) Large (67-100%) -Necrotic Tissue Type Adherent Slough Adherent Slough -Structure Exposed N/A N/A -Texture (Ritika-wound Skin Appearance) Scarring Scarring -Moisture (Ritika-wound Skin Appearance) No Abnormality No Abnormality -Color (Ritika-wound Skin Appearance) No Abnormality No Abnormality -Temperature (Ritika-wound Skin No Abnormality Appearance) (Pt Warm) -Tenderness on Palpation (Ritika-wound No No Skin Appearance) -Ulcer Cleansing Soap and Water Soap and Water -Foul Odor after Cleansing No No -Anesthetic Used 5% Lidocaine 5% Lidocaine Gel Gel #1- SUPERIOR CERIVICAL SPINE (SURGICAL) -Current Size (cm) - Length 1.2 1.8 -Current Size (cm) - Width 0.6 0.7 -Current Size (cm) - Depth 1.3 1.5 -Total Square Cm 0.72 1.26 -Exudate Amt Medium Medium -Exudate Type Serosanguineous Yellow/Green -Wound Margin Distinct, Distinct, Outline Outline Attached Attached -Granulation Amt Medium (34-66%) None Present (0 %) -Granulation Quality [place] -Necrosis Amt Medium (34-66%) Large (67-100%) -Necrotic Tissue Type Adherent Slough Adherent Slough -Structure Exposed N/A N/A -Texture (Ritika-wound Skin Appearance) Scarring Scarring -Moisture (Ritika-wound Skin Appearance) No Abnormality No Abnormality -Color (Ritika-wound Skin Appearance) No Abnormality No Abnormality -Temperature (Ritika-wound Skin No Abnormality No Abnormality Appearance) (Pt Warm) (Pt Warm) -Tenderness on Palpation (Ritika-wound No No Skin Appearance) -Ulcer Cleansing Soap and Water Rinsed/ Irrigated with Saline -Foul Odor after Cleansing No No -Anesthetic Used 5% Lidocaine 5% Lidocaine Gel Gel WC - Nurse 2 - General Ulcer CM Notes Start: 09/09/23 10:44 Freq: Status: Active Protocol: Activity Type Activity Date Activity User E-sign Co-sign Detail Recorded Client Recorded Date Recorded By Document 09/09/23 11:16 Laptop 09/09/23 11:20 Document 09/23/23 11:13 Desktop 09/23/23 11:20 09/09/23 09/23/23 11:16 11:13 Wound Center Nurse 2 #2- CERVICAL INFERIOR WOUND (SURGICAL) -Time 11:16 11:13 -Correct Patient Yes Yes -Correct Side, Site, Position Yes Yes -Correct Procedure Yes Yes -Procedure Performed Yes Yes -Type of Procedure Debridement Debridement -Clinical Debridement Subcutaneous Subcutaneous -Tissue Removed Subcutaneous Subcutaneous -Post Debridement (cm) - Length 0.5 0.7 -Post Debridement (cm) - Width 0.7 0.7 -Post Debridement (cm) - Depth 2.5 2.5 -Total Square (Post) (cm) 0.35 0.49 -Area of Debridement (cm) - Length 0.5 0.7 -Area of Debridement (cm) - Width 0.7 0.7 -Total Square (Area) (cm) 0.35 0.49 -Tunneling No -Undermining/Tunneling No No -Circular Undermining No No -Wound/Ulcer Outcome Not Healed Not Healed -Ulcer Cleansing Rinsed/ Rinsed/ Irrigated with Irrigated with Saline Saline -Foul Odor after Cleansing No No -Bioengineered Tissue No No -Bleeding Controlled with Pressure Pressure -Treatment Response Procedure Procedure Tolerated Well Tolerated Well -Offloading No -Debridement - Subq, 1st 20sq cm No Yes #1- SUPERIOR CERIVICAL SPINE (SURGICAL) -Time 11:17 11:13 -Correct Patient Yes Yes -Correct Side, Site, Position Yes Yes -Correct Procedure Yes Yes -Procedure Performed Yes Yes -Type of Procedure Debridement Debridement -Clinical Debridement Subcutaneous Subcutaneous -Tissue Removed Subcutaneous Subcutaneous -Post Debridement (cm) - Length 1.0 1.8 -Post Debridement (cm) - Width 0.7 0.6 -Post Debridement (cm) - Depth 2.0 1.7 -Total Square (Post) (cm) 0.70 1.08 -Area of Debridement (cm) - Length 1.0 1.8 -Area of Debridement (cm) - Width 0.7 0.6 -Total Square (Area) (cm) 0.70 1.08 -Tunneling No -Undermining/Tunneling No -Circular Undermining No -Wound/Ulcer Outcome Not Healed Not Healed -Ulcer Cleansing Rinsed/ Rinsed/ Irrigated with Irrigated with Saline Saline -Foul Odor after Cleansing No No -Bioengineered Tissue No No -Bleeding Controlled with Pressure Pressure -Treatment Response Procedure Procedure Tolerated Well Tolerated Well -Offloading No -Debridement - Subq, 1st 20sq cm Yes No Pain Scale: 0-10 Numeric Is Patient Pain Free? Yes Yes - Nurse 3 - General Ulcer D/C NN Start: 09/09/23 10:44 Freq: Status: Active Protocol: Activity Type Activity Date Activity User E-sign Co-sign Detail Recorded Client Recorded Date Recorded By Document 09/09/23 11:33 [facility] Desktop 09/09/23 11:34 [facility] Document 09/23/23 11:34 [facility] Desktop 09/23/23 11:35 [facility] 09/09/23 09/23/23 11:33 11:34 Wound Care Center Nurse 3 #2- CERVICAL INFERIOR WOUND (SURGICAL) -Ulcer Cleansing Rinsed/ Rinsed/ Irrigated with Irrigated with Saline Saline -Foul Odor after Cleansing No No -Primary Dressing Applied Aquacel Extra, Aquacel Extra, Mepilex Border Mepilex Border -Aquacel Extra 1 1 -Mepilex Border 1 1 #1- SUPERIOR CERIVICAL SPINE (SURGICAL) -Ulcer Cleansing Rinsed/ Rinsed/ Irrigated with Irrigated with Saline Saline -Foul Odor after Cleansing No No -Primary Dressing Applied Aquacel Extra, Aquacel Extra, Mepilex Border Mepilex Border -Aquacel Extra 0 0 -Mepilex Border 0 0 Treatment Response Procedure Procedure Tolerated Well Tolerated Well Pain Scale: 0-10 Numeric Is Patient Pain Free? Yes Yes - Visit Discharge Discharge Condition Stable Stable Ambulatory Status Wheelchair Wheelchair Transportation [facility] ECF Facility Type Outpatient Services Director Care Outpatient Services Director Care Facility Facility Additional Wound Wound debrided: Upper back (inferior Cervical) Type of Debridement: Excisional debridement Anesthesia Used: 5% Lidocaine Gel Depth: Down to and including healthy tissue and in the subcutaneous layer Percentage of wound debrided: 100 Instrument Used: 5mm curette Tissue Removed: Slough and devitalized tissue Severity: Fat Layer Exposed Amount of bleeding with debridement: Mild Bleeding Controlled with: Pressure Patient tolerated procedure: Patient tolerated procedure well Assessment/Plan Assessment/Plan (1) Non-healing surgical wound: CODE(S): T81.89XA - Other complications of procedures, not elsewhere classified, initial encounter QUALIFIERS: Encounter type: initial encounter Qualified Code(s): T81.89XA - Other complications of procedures, not elsewhere classified, initial encounter (2) Multiple myeloma: CODE(S): C90.00 - Multiple myeloma not having achieved remission (3) History of radiation therapy: CODE(S): Z92.3 - Personal history of irradiation (4) Paraplegia: CODE(S): G82.20 - Paraplegia, unspecified PLAN: Plan Debridement done as documented above, procedure was well-tolerated. No new concerns at this time. No significant size change. Report of imaging done at his facility reviewed, no acute concerns reported. He has an appointment with his operating surgeon on the 06 of October. Due to concern for radiation inj ury, he would be a good candidate for HBO therapy and possibly, flap closure. For now, continue Aquacel extra, change daily to twice daily depending on drainage. Prealbumin slightly low, continue Ariel twice daily. Vitamin C, D and zinc also recommended, he voiced understanding. His questions were answered and he was advised to let us know if he has any further questions or concerns. Follow-up in 1 week or sooner if needed. This note was generated with [employer] dictation software. It may contain incorrect words, spelling, and punctuation that were not noted in checking the note before signing.
== END 2023-09-26 23:59 | disposition home or self-care (01) ==
LOC: WC 10:45
PROVIDERS: PCP Family Medicine; Referring Provider Family Medicine; Visit Provider Internal Medicine
DX: T81.89XA Other complications of procedures, not elsewhere classified, initial encounter (principal); G82.20 Paraplegia, unspecified; C90.00 Multiple myeloma not having achieved remission; Z79.01 Long term (current) use of anticoagulants; Z79.890 Hormone replacement therapy; Z79.899 Other long term (current) drug therapy; Z92.3 Personal history of irradiation
CPT/HCPCS: 11042

== ENCOUNTER → 2023-10-07 | Outpatient (REF) | payer MEDICARE, OTHER, SELFPAY ==
[2023-10-07 10:59] LABS: Hemoglobin 11.9 g/dL (13.0-16.5); Mean Corp Hgb Conc 29.8 g/dL (32-36); Mean Corpuscular Volume 94.1 fL (80-94); Mean Platelet Vol. 10.8 fl (6.2-12.0); Platelet Count 177 K/mm3 (150-450); RBC Distribution Width CV 16.7 % (11.6-14.6); RBC Distribution Width SD 57.8 fl (35.1-43.9); Red Blood Count 4.25 M/mm3 (4.6-6.2); White Blood Count 3.2 K/mm3 (4.4-11.0)
[2023-10-07 11:34] LABS: Vitamin D,25 Hydroxy 68.9 ng/mL
[2023-10-07 11:39] LABS: ALB/GLOB Ratio 0.8 RATIO (0.9-2.4); AST(SGOT) 8 U/L (15-37); Alanine Aminotransfer ALT/SGPT 19 U/L (16-61); Albumin, Serum 2.8 g/dL (3.2-5.0); Alkaline Phosphatase 61 U/L (45-117); Anion Gap 4 (5-15); BUN 11 mg/dL (7-18); BUN/Creat Ratio 12.9 RATIO (10-20); Calcium,Total 9.2 mg/dL (8.5-10.1); Chloride 105 mmol/L (98-107); Cholesterol 169 mg/dL (200); Creatinine, Serum 0.85 mg/dL (0.70-1.30); EST Glomerular Filtration Rate 96 mL/min (>60); Est Glom Filt Rate - Afr Amer 116 mL/min (>60); Globulin 3.4 g/dL (2.2-4.2); Glucose 111 mg/dL (74-106); High Density Lipoprotein 71 mg/dL; Potassium 4.1 mmol/L (3.5-5.1); Protein, Total 6.2 g/dL (6.4-8.2); Sodium Level 140 mmol/L (136-145); T4 Free Direct 1.13 ng/dL (0.76-1.46); Thyroid Stim Hormone (TSH) 3.26 uIU/mL (0.358-3.74); Triglycerides 72 mg/dL; Very Low Density Lipoprotein 14 mg/dL (5-40)
== END ==
PROVIDERS: PCP Family Medicine; Visit Provider Family Medicine
DX: C90.02 Multiple myeloma in relapse (principal); C79.52 Secondary malignant neoplasm of bone marrow; I10 Essential (primary) hypertension; E78.5 Hyperlipidemia, unspecified; E03.9 Hypothyroidism, unspecified; Z79.899 Other long term (current) drug therapy; E55.9 Vitamin D deficiency, unspecified
CPT/HCPCS: 80053; 80061; 82306; 84439; 84443; 85027

== ENCOUNTER 2023-10-14 10:45 | Outpatient (RCR) | payer MEDICARE, OTHER, SELFPAY ==
[2023-09-27 00:25] VITALS: BP 114/48; PULSE 50; RESP 18; TEMP 36.3; BMI 27.4
[2023-09-30 10:41] VITALS: BP 96/49; PULSE 57; RESP 18; TEMP 36.6; BMI 27.4
--- NOTE | 2023-09-30 11:29 | PN.PCM_ITS ---
History of Present Illness Date of Service: 09/30/23 Chief Complaint: Non healing surgical wound History of Wound: Mr. Barron is a 68-year-old who was referred to this facility due to nonhealing surgical wound. Had surgery in October due to multiple myeloma. Surgery was uneventful with most of the surgical site healed but 2 areas which have not healed. He states that he has had wound dressings down to the area including a wound VAC. Not particularly sure what type of dressings he has had. He is not sure how much drainage he is getting from the area either. Currently resides in an assisted living facility. Still follows up closely with oncology and is on monthly chemotherapy regimen and dexamethasone. Had also had radiation therapy to the area. He feels well otherwise. States that he eats good. Progress of Wound: No new concerns at this time. He states that he is taking antibiotics as prescribed. Has an appointment with his surgeon next week. Objective Data Objective Data Vital Signs: Vital Signs Temp Pulse Resp BP 98 F 57 L 18 96/49 L 09/30/23 10:41 09/30/23 10:41 09/30/23 10:41 09/30/23 10:41 Weight: 165 lb Body Mass Index (BMI) 27.4 Charges/Coding Procedures Integumentary 111xxx-113xx: 15807 Marley subq tissue 20 sq cm/< Physical Exam Const alert, oriented x3 and no apparent distress General Appearance: cooperative HEENT normocephalic and head/scalp atraumatic Face and Sinus: normal facial exam Eyes EOMs intact bilaterally General Eye: normal appearance of both eyes Neck full ROM General: normal visual inspection Resp normal respiratory effort Effort and Inspection: able to speak in complete sentences Skin Wounds: wounds noted Neuro oriented x3 and CN's II-XII intact bilaterally Psych mental status grossly normal, thought process normal, cooperative, affect normal and speech normal Debridement Note Debridement Note Wound debrided: Upper back (superior cervical) Type of Debridement: Excisional debridement Anesthesia Used: 5% Lidocaine Gel Depth: Down to and including healthy tissue and in the subcutaneous layer Percentage of wound debrided: 100 Instrument Used: 5mm curette Tissue Removed: Slough and devitalized tissue Severity: Fat Layer Exposed Bleeding Controlled with: Pressure and Compression and gauze Patient tolerated procedure: Patient tolerated procedure well Post-Debridement Measurements and Additional Note: Post-Debridement Measurements/Treatment WC - Nurse 1 - General Ulcer Assessment Start: 09/30/23 10:40 Freq: Status: Active Protocol: RAUL Activity Type Activity Date Activity User E-sign Co-sign Detail Recorded Client Recorded Date Recorded By Document 09/30/23 10:41 DL Desktop 09/30/23 10:49 DL 09/30/23 10:41 WC - Today's Visit Information Type of service Follow-up Visit (Physician/POWDER AND PRIMER CANNING LEADER ) Arrival Mode Wheelchair Transfer Assistance None Patient Identification Verified (Name & Yes ) Patient Requires Transmission-Based No Precautions Height and Weight Body Mass Index (BMI) 27.4 BMI Classification Overweight Vital Signs Temperature (97.8 F-99.1 F) 98 F Temperature Source Temporal Pulse Rate (60-100) 57 L Pulse Location Monitor Respiratory Rate (12-18) 18 Respiratory rate source Observation Blood Pressure (90/60-120/80) 96/49 L Blood Pressure Mean (mm Hg) 64 Source Monitor History Since Last Visit- (Skip if this is Patient's initial visit) Have you changed medications since your No last visit? Any new allergies or adverse reactions No Had a fall/change in ADL's that may No increase risk of falls Signs or symptoms of abuse and/or No neglect since last visit Have you been in the hospital since your No last visit? Has dressing in place as prescribed Yes Has compression in place as prescribed N/A Has offloadiing in place as prescribed N/A Experienced any changes in pain level or No management Pain Scale: 0-10 Numeric Is Patient Pain Free? Yes - Nurse 1 - General Ulcer Measurement Start: 09/30/23 10:40 Freq: Status: Active Protocol: Activity Type Activity Date Activity User E-sign Co-sign Detail Recorded Client Recorded Date Recorded By Document 09/30/23 10:41 DL Desktop 09/30/23 10:49 DL 09/30/23 10:41 Wound Center Nurse 1 #2- CERVICAL INFERIOR WOUND (SURGICAL) -Current Size (cm) - Length 0.7 -Current Size (cm) - Width 0.8 -Current Size (cm) - Depth 2 -Total Square Cm 0.56 -Exudate Amt Medium -Exudate Type Yellow/Green -Wound Margin Distinct, Outline Attached -Granulation Amt Small (1-33%) -Granulation Quality Red -Necrosis Amt Small (1-33%) -Necrotic Tissue Type Adherent Slough -Structure Exposed N/A -Texture (Ritika-wound Skin Appearance) Scarring -Moisture (Ritika-wound Skin Appearance) No Abnormality -Color (Ritika-wound Skin Appearance) No Abnormality -Temperature (Ritika-wound Skin No Abnormality Appearance) (Pt Warm) -Tenderness on Palpation (Ritika-wound No Skin Appearance) -Ulcer Cleansing Rinsed/ Irrigated with Saline -Foul Odor after Cleansing No -Anesthetic Used 5% Lidocaine Gel #1- SUPERIOR CERIVICAL SPINE (SURGICAL) -Current Size (cm) - Length 0.8 -Current Size (cm) - Width 0.5 -Current Size (cm) - Depth 0.7 -Total Square Cm 0.40 -Tunneling Position (O'clock) 12 -Tunneling Distance (cm) 1.2 -Granulation Amt Small (1-33%) -Granulation Quality Red -Necrosis Amt Small (1-33%) -Necrotic Tissue Type Adherent Slough -Structure Exposed N/A -Texture (Ritika-wound Skin Appearance) Scarring -Moisture (Ritika-wound Skin Appearance) No Abnormality -Color (Ritika-wound Skin Appearance) No Abnormality -Temperature (Ritika-wound Skin No Abnormality Appearance) (Pt Warm) -Tenderness on Palpation (Ritika-wound No Skin Appearance) -Foul Odor after Cleansing No -Anesthetic Used 4% Lidocaine Solution WC - Nurse 2 - General Ulcer CM Notes Start: 09/30/23 10:40 Freq: Status: Active Protocol: Activity Type Activity Date Activity User E-sign Co-sign Detail Recorded Client Recorded Date Recorded By Document 09/30/23 11:05 Desktop 09/30/23 11:11 09/30/23 11:05 Wound Center Nurse 2 #2- CERVICAL INFERIOR WOUND (SURGICAL) -Time 11:05 -Correct Patient Yes -Correct Side, Site, Position Yes -Correct Procedure Yes -Procedure Performed Yes -Type of Procedure Debridement -Clinical Debridement Subcutaneous -Tissue Removed Subcutaneous -Post Debridement (cm) - Length 0.7 -Post Debridement (cm) - Width 1 -Post Debridement (cm) - Depth 2 -Total Square (Post) (cm) 0.7 -Area of Debridement (cm) - Length 0.7 -Area of Debridement (cm) - Width 1 -Total Square (Area) (cm) 0.7 -Tunneling No -Undermining/Tunneling No -Circular Undermining No -Wound/Ulcer Outcome Not Healed -Ulcer Cleansing Rinsed/ Irrigated with Saline -Foul Odor after Cleansing No -Bioengineered Tissue No -Bleeding Controlled with Pressure -Treatment Response Procedure Tolerated Well -Debridement - Subq, 1st 20sq cm No #1- SUPERIOR CERIVICAL SPINE (SURGICAL) -Time 11:06 -Correct Patient Yes -Correct Side, Site, Position Yes -Correct Procedure Yes -Procedure Performed Yes -Type of Procedure Debridement -Clinical Debridement Subcutaneous -Tissue Removed Subcutaneous -Post Debridement (cm) - Length 1.1 -Post Debridement (cm) - Width 0.5 -Post Debridement (cm) - Depth 1.5 -Total Square (Post) (cm) 0.55 -Area of Debridement (cm) - Length 1.1 -Area of Debridement (cm) - Width 0.5 -Total Square (Area) (cm) 0.55 -Tunneling No -Undermining/Tunneling No -Circular Undermining No -Wound/Ulcer Outcome Not Healed -Ulcer Cleansing Rinsed/ Irrigated with Saline -Foul Odor after Cleansing No -Bioengineered Tissue No -Bleeding Controlled with Pressure -Treatment Response Procedure Tolerated Well -Debridement - Subq, 1st 20sq cm Yes Pain Scale: 0-10 Numeric Is Patient Pain Free? Yes - Nurse 3 - General Ulcer D/C NN Start: 09/30/23 10:40 Freq: Status: Active Protocol: Activity Type Activity Date Activity User E-sign Co-sign Detail Recorded Client Recorded Date Recorded By Document 09/30/23 11:12 Desktop 09/30/23 11:14 09/30/23 11:12 Wound Care Center Nurse 3 #2- CERVICAL INFERIOR WOUND (SURGICAL) -Ulcer Cleansing Not Cleansed -Foul Odor after Cleansing No -Negative Pressure Wound Therapy N/A -Primary Dressing Applied Aquacel Extra, Mepilex Border -Aquacel Extra 1 -Mepilex Border 1 #1- SUPERIOR CERIVICAL SPINE (SURGICAL) -Ulcer Cleansing Not Cleansed -Foul Odor after Cleansing No -Negative Pressure Wound Therapy N/A -Primary Dressing Applied Other -Other Dressing used remainder of aquacel extra from other wound Pain Scale: 0-10 Numeric Is Patient Pain Free? Yes Teaching: Wound Center Dressing changes -Person Taught Patient -Teaching Method Discussion -Response to teaching Verbalize understanding WC - Visit Discharge Discharge Condition Stable Ambulatory Status Wheelchair Transportation Private Auto Medication Reconcilliation completed & Yes provided to patient/care provider Clinical Summary of Care Provided Yes Additional Wound Wound debrided: Upper back (inferior Cervical) Type of Debridement: Excisional debridement Anesthesia Used: 5% Lidocaine Gel Depth: Down to and including healthy tissue and in the subcutaneous layer Percentage of wound debrided: 100 Instrument Used: 5mm curette Tissue Removed: Slough and devitalized tissue Severity: Fat Layer Exposed Amount of bleeding with debridement: Mild Bleeding Controlled with: Pressure Patient tolerated procedure: Patient tolerated procedure well Assessment/Plan Assessment/Plan (1) Non-healing surgical wound: CODE(S): T81.89XA - Other complications of procedures, not elsewhere classified, initial encounter QUALIFIERS: Encounter type: initial encounter Qualified Code(s): T81.89XA - Other complications of procedures, not elsewhere classified, initial encounter (2) Multiple myeloma: CODE(S): C90.00 - Multiple myeloma not having achieved remission (3) History of radiation therapy: CODE(S): Z92.3 - Personal history of irradiation (4) Paraplegia: CODE(S): G82.20 - Paraplegia, unspecified PLAN: Plan Debridement done as documented above, procedure was well-tolerated. No new concerns reported at this time. Significantly less slough with good granulation noted. Minimal improvement in size. He has an appointment with his operating surgeon on the 06 of October. Due to concern for radiation injury, he would be a good candidate for HBO therapy and possibly, flap closure. He however is not open to hyperbaric oxygen treatments. For now, continue Aquacel extra, change daily to twice daily depending on drainage. Prealbumin slightly low, continue Ariel twice daily. Vitamin C, D and zinc also recommended, he voiced understanding. His questions were answered and he was advised to let us know if he has any further questions or concerns. Follow-up in 2 weeks per patient preference. This note was generated with [employer] software. It may contain incorrect words, spelling, and punctuation that were not noted in checking the note before signing.
[2023-10-14 10:36] VITALS: BP 106/59; PULSE 56; RESP 16; TEMP 36.6; BMI 27.4
--- NOTE | 2023-10-14 12:46 | PN.PCM_ITS ---
History of Present Illness Date of Service: 10/14/23 Chief Complaint: Non healing surgical wound History of Wound: Mr. Barron is a 68-year-old who was referred to this facility due to nonhealing surgical wound. Had surgery in October due to multiple myeloma. Surgery was uneventful with most of the surgical site healed but 2 areas which have not healed. He states that he has had wound dressings down to the area including a wound VAC. Not particularly sure what type of dressings he has had. He is not sure how much drainage he is getting from the area either. Currently resides in an assisted living facility. Still follows up closely with oncology and is on monthly chemotherapy regimen and dexamethasone. Had also had radiation therapy to the area. He feels well otherwise. States that he eats good. Progress of Wound: No new concerns at this time. Had an appointment with his surgeon last week and states that his surgeon also recommended hyperbaric oxygen therapy but he is still thinking about this. Objective Data Objective Data Vital Signs: Vital Signs Temp Pulse Resp BP O2 Del Method 97.8 F 56 L 16 106/59 L Room Air 10/14/23 10:36 10/14/23 10:36 10/14/23 10:36 10/14/23 10:36 10/14/23 10:36 Oxygen Delivery Method Room Air Weight: 165 lb Body Mass Index (BMI) 27.4 Charges/Coding Procedures Integumentary 111xxx-113xx: [id number] Marley subq tissue 20 sq cm/< Physical Exam Const alert, oriented x3 and no apparent distress General Appearance: cooperative HEENT normocephalic and head/scalp atraumatic Face and Sinus: normal facial exam Eyes EOMs intact bilaterally General Eye: normal appearance of both eyes Neck full ROM General: normal visual inspection Resp normal respiratory effort Effort and Inspection: able to speak in complete sentences Skin Wounds: wounds noted Neuro oriented x3 and CN's II-XII intact bilaterally Psych mental status grossly normal, thought process normal, cooperative, affect normal and speech normal Debridement Note Debridement Note Wound debrided: Upper back (superior cervical) Type of Debridement: Excisional debridement Anesthesia Used: 5% Lidocaine Gel Depth: Down to and including healthy tissue and in the subcutaneous layer Percentage of wound debrided: 100 Instrument Used: 5mm curette Tissue Removed: Slough and devitalized tissue Severity: Fat Layer Exposed Bleeding Controlled with: Pressure and Compression and gauze Patient tolerated procedure: Patient tolerated procedure well Post-Debridement Measurements and Additional Note: Post-Debridement Measurements/Treatment WC - Nurse 1 - General Ulcer Assessment Start: 09/30/23 10:40 Freq: Status: Active Protocol: RAUL Activity Type Activity Date Activity User E-sign Co-sign Detail Recorded Client Recorded Date Recorded By Document 09/30/23 10:41 DL Desktop 09/30/23 10:49 DL Document 10/14/23 10:36 BMF Desktop 10/14/23 10:45 BMF 09/30/23 10/14/23 10:41 10:36 WC - Today's Visit Information Type of service Follow-up Visit Follow-up Visit (Physician/DIRECTOR OF MUSIC THERAPY (Physician/DIRECTOR OF MUSIC THERAPY ) ) Arrival Mode Wheelchair Wheelchair Transfer Assistance None None Patient Identification Verified (Name & Yes Yes ) Patient Requires Transmission-Based No No Precautions Height and Weight Body Mass Index (BMI) 27.4 27.4 BMI Classification Overweight Overweight Vital Signs Temperature (97.8 F-99.1 F) 98 F 97.8 F Temperature Source Temporal Temporal Pulse Rate (60-100) 57 L 56 L Pulse Location Monitor Monitor Respiratory Rate (12-18) 18 16 Respiratory rate source Observation Observation Oxygen Delivery Method Room Air Blood Pressure (90/60-120/80) 96/49 L 106/59 L Blood Pressure Mean (mm Hg) 64 74 Source Monitor Monitor Position Sitting History Since Last Visit- (Skip if this is Patient's initial visit) Have you changed medications since your No No last visit? Any new allergies or adverse reactions No No Had a fall/change in ADL's that may No No increase risk of falls Signs or symptoms of abuse and/or No No neglect since last visit Have you been in the hospital since your No No last visit? Has dressing in place as prescribed Yes Yes Has compression in place as prescribed N/A N/A Has offloadiing in place as prescribed N/A N/A Experienced any changes in pain level or No No management Left Footwear Regular Shoe Right Footwear Regular Shoe Pain Scale: 0-10 Numeric Is Patient Pain Free? Yes Yes ELSY Andrade Nurse 1 - General Ulcer Measurement Start: 09/30/23 10:40 Freq: Status: Active Protocol: Activity Type Activity Date Activity User E-sign Co-sign Detail Recorded Client Recorded Date Recorded By Document 09/30/23 10:41 DL Desktop 09/30/23 10:49 DL Document 10/14/23 10:36 [facility] Desktop 10/14/23 10:45 BM 09/30/23 10/14/23 10:41 10:36 Wound Center Nurse 1 #2- CERVICAL INFERIOR WOUND (SURGICAL) -Combined with other wound No -Current Size (cm) - Length 0.7 0.3 -Current Size (cm) - Width 0.8 0.4 -Current Size (cm) - Depth 2 1.5 -Total Square Cm 0.56 0.12 -Date of Last Picture (Recall this 10/14/23 field) -Photo Taken Yes -Epithelialization None Present -Exudate Amt Medium Large -Exudate Type Yellow/Green Purulent -Wound Margin Distinct, Distinct, Outline Outline Attached Attached -Granulation Amt Small (1-33%) Large (67-100%) -Granulation Quality Red Red -Slough/Fibrin Yes -Necrosis Amt Small (1-33%) Small (1-33%) -Necrotic Tissue Type Adherent Slough Adherent Slough -Structure Exposed N/A -Texture (Ritika-wound Skin Appearance) Scarring Assessed, Scarring -Moisture (Ritika-wound Skin Appearance) No Abnormality Assessed -Color (Ritika-wound Skin Appearance) No Abnormality Assessed -Temperature (Ritika-wound Skin No Abnormality No Abnormality Appearance) (Pt Warm) (Pt Warm) -Tenderness on Palpation (Ritika-wound No No Skin Appearance) -Ulcer Cleansing Rinsed/ Rinsed/ Irrigated with Irrigated with Saline Saline -Foul Odor after Cleansing No No -Anesthetic Used 5% Lidocaine 5% Lidocaine Gel Gel #1- SUPERIOR CERIVICAL SPINE (SURGICAL) -Combined with other wound No -Current Size (cm) - Length 0.8 0.7 -Current Size (cm) - Width 0.5 0.3 -Current Size (cm) - Depth 0.7 0.5 -Total Square Cm 0.40 0.21 -Date of Last Picture (Recall this 10/14/23 field) -Photo Taken Yes -Epithelialization None Present -Tunneling Position (O'clock) 12 -Tunneling Distance (cm) 1.2 -Exudate Amt Large -Exudate Type Purulent -Wound Margin Distinct, Outline Attached -Granulation Amt Small (1-33%) Large (67-100%) -Granulation Quality Red Red -Slough/Fibrin Yes -Necrosis Amt Small (1-33%) Small (1-33%) -Necrotic Tissue Type Adherent Slough Adherent Slough -Structure Exposed N/A -Texture (Ritika-wound Skin Appearance) Scarring Assessed, Scarring -Moisture (Ritika-wound Skin Appearance) No Abnormality Assessed -Color (Ritika-wound Skin Appearance) No Abnormality Assessed -Temperature (Ritika-wound Skin No Abnormality No Abnormality Appearance) (Pt Warm) (Pt Warm) -Tenderness on Palpation (Ritika-wound No No Skin Appearance) -Ulcer Cleansing Rinsed/ Irrigated with Saline -Foul Odor after Cleansing No No -Anesthetic Used 4% Lidocaine 5% Lidocaine Solution Gel WC - Nurse 2 - General Ulcer CM Notes Start: 09/30/23 10:40 Freq: Status: Active Protocol: Activity Type Activity Date Activity User E-sign Co-sign Detail Recorded Client Recorded Date Recorded By Document 09/30/23 11:05 Desktop 09/30/23 11:11 Document 10/14/23 11:01 Desktop 10/14/23 11:08 09/30/23 10/14/23 11:05 11:01 Wound Center Nurse 2 #2- CERVICAL INFERIOR WOUND (SURGICAL) -Time 11:05 11:01 -Correct Patient Yes Yes -Correct Side, Site, Position Yes Yes -Correct Procedure Yes Yes -Procedure Performed Yes Yes -Type of Procedure Debridement Debridement -Clinical Debridement Subcutaneous Subcutaneous -Tissue Removed Subcutaneous Subcutaneous -Post Debridement (cm) - Length 0.7 0.6 -Post Debridement (cm) - Width 1 0.6 -Post Debridement (cm) - Depth 2 2.0 -Total Square (Post) (cm) 0.7 0.36 -Area of Debridement (cm) - Length 0.7 0.6 -Area of Debridement (cm) - Width 1 0.6 -Total Square (Area) (cm) 0.7 0.36 -Tunneling No No -Undermining/Tunneling No No -Circular Undermining No No -Wound/Ulcer Outcome Not Healed Not Healed -Ulcer Cleansing Rinsed/ Rinsed/ Irrigated with Irrigated with Saline Saline -Foul Odor after Cleansing No No -Bioengineered Tissue No No -Bleeding Controlled with Pressure Pressure -Treatment Response Procedure Procedure Tolerated Well Tolerated Well -Debridement - Subq, 1st 20sq cm No Yes #1- SUPERIOR CERIVICAL SPINE (SURGICAL) -Time 11:06 11:01 -Correct Patient Yes Yes -Correct Side, Site, Position Yes Yes -Correct Procedure Yes Yes -Procedure Performed Yes Yes -Type of Procedure Debridement Debridement -Clinical Debridement Subcutaneous Subcutaneous -Tissue Removed Subcutaneous Subcutaneous -Post Debridement (cm) - Length 1.1 0.7 -Post Debridement (cm) - Width 0.5 0.4 -Post Debridement (cm) - Depth 1.5 2.0 -Total Square (Post) (cm) 0.55 0.28 -Area of Debridement (cm) - Length 1.1 0.7 -Area of Debridement (cm) - Width 0.5 0.4 -Total Square (Area) (cm) 0.55 0.28 -Tunneling No No -Undermining/Tunneling No No -Circular Undermining No No -Wound/Ulcer Outcome Not Healed Not Healed -Ulcer Cleansing Rinsed/ Rinsed/ Irrigated with Irrigated with Saline Saline -Foul Odor after Cleansing No No -Bioengineered Tissue No No -Bleeding Controlled with Pressure Pressure -Treatment Response Procedure Procedure Tolerated Well Tolerated Well -Debridement - Subq, 1st 20sq cm Yes No Pain Scale: 0-10 Numeric Is Patient Pain Free? Yes Yes WC - Nurse 3 - General Ulcer D/C NN Start: 09/30/23 10:40 Freq: Status: Active Protocol: Activity Type Activity Date Activity User E-sign Co-sign Detail Recorded Client Recorded Date Recorded By Document 09/30/23 11:12 Desktop 09/30/23 11:14 Document 10/14/23 11:56 [email or web address] 10/14/23 11:58 RB 09/30/23 10/14/23 11:12 11:56 Wound Care Center Nurse 3 #2- CERVICAL INFERIOR WOUND (SURGICAL) -Ulcer Cleansing Not Cleansed Rinsed/ Irrigated with Saline -Foul Odor after Cleansing No -Negative Pressure Wound Therapy N/A -Primary Dressing Applied Aquacel Extra, Aquacel Extra, Mepilex Border Mepilex Border -Aquacel Extra 1 1 -Mepilex Border 1 1 #1- SUPERIOR CERIVICAL SPINE (SURGICAL) -Ulcer Cleansing Not Cleansed -Foul Odor after Cleansing No -Negative Pressure Wound Therapy N/A -Primary Dressing Applied Other -Other Dressing used remainder aquacel extra, of aquacel mepilex border extra from other wound Treatment Response Procedure Tolerated Well Pain Scale: 0-10 Numeric Is Patient Pain Free? Yes Yes Teaching: Wound Center Dressing changes -Person Taught Patient -Teaching Method Discussion -Response to teaching Verbalize understanding WC - Visit Discharge Discharge Condition Stable Stable Ambulatory Status Wheelchair Wheelchair Transportation Private Auto [place] Medication Reconcilliation completed & Yes No provided to patient/care provider Clinical Summary of Care Provided Yes Yes Additional Wound Wound debrided: Upper back (inferior Cervical) Type of Debridement: Excisional debridement Anesthesia Used: 5% Lidocaine Gel Depth: Down to and including healthy tissue and in the subcutaneous layer Percentage of wound debrided: 100 Instrument Used: 5mm curette Tissue Removed: Slough and devitalized tissue Severity: Fat Layer Exposed Amount of bleeding with debridement: Mild Bleeding Controlled with: Pressure Patient tolerated procedure: Patient tolerated procedure well Assessment/Plan Assessment/Plan (1) Non-healing surgical wound: CODE(S): T81.89XA - Other complications of procedures, not elsewhere classified, initial encounter QUALIFIERS: Encounter type: initial encounter Qualified Code(s): T81.89XA - Other complications of procedures, not elsewhere classified, initial encounter (2) Multiple myeloma: CODE(S): C90.00 - Multiple myeloma not having achieved remission (3) History of radiation therapy: CODE(S): Z92.3 - Personal history of irradiation (4) Paraplegia: CODE(S): G82.20 - Paraplegia, unspecified PLAN: Plan Debridement done as documented above, procedure was well-tolerated. No new concerns reported at this time. Some improvement noted. As above, had an ap pointment with his operating surgeon last week and HBO was also recommended but he still not open to it. For now, continue Aquacel extra, change daily to twice daily depending on drainage. Prealbumin slightly low, continue Ariel twice daily. Vitamin C, D and zinc also recommended, he voiced understanding. His questions were answered and he was advised to let us know if he has any further questions or concerns. Follow-up in 2 weeks per patient preference. This note was generated with [employer]Access[employer] software. It may contain incorrect words, spelling, and punctuation that were not noted in checking the note before signing.
== END 2023-10-27 23:59 | disposition home or self-care (01) ==
LOC: WC 10:45
PROVIDERS: PCP Family Medicine; Referring Provider Family Medicine; Visit Provider Internal Medicine
DX: T81.89XA Other complications of procedures, not elsewhere classified, initial encounter (principal); G82.20 Paraplegia, unspecified; C90.00 Multiple myeloma not having achieved remission; Z92.3 Personal history of irradiation; Z79.01 Long term (current) use of anticoagulants; Z79.899 Other long term (current) drug therapy
CPT/HCPCS: 11042

== ENCOUNTER 2023-11-25 10:30 | Outpatient (RCR) | payer MEDICARE, OTHER, SELFPAY ==
[2023-10-28 00:49] VITALS: BP 106/59; PULSE 56; RESP 16; TEMP 36.6; BMI 27.4
[2023-10-28 10:49] VITALS: BP 105/47; PULSE 65; RESP 16; TEMP 36.2; BMI 27.4
--- NOTE | 2023-10-28 11:34 | PN.PCM_ITS ---
History of Present Illness Date of Service: 10/28/23 Chief Complaint: Non healing surgical wound History of Wound: Mr. Barron is a 68-year-old who was referred to this facility due to nonhealing surgical wound. Had surgery in October due to multiple myeloma. Surgery was uneventful with most of the surgical site healed but 2 areas which have not healed. He states that he has had wound dressings down to the area including a wound VAC. Not particularly sure what type of dressings he has had. He is not sure how much drainage he is getting from the area either. Currently resides in an assisted living facility. Still follows up closely with oncology and is on monthly chemotherapy regimen and dexamethasone. Had also had radiation therapy to the area. He feels well otherwise. States that he eats good. Progress of Wound: No new concerns at this time. No significant drainage reported. Now open to hyperbaric oxygen therapy. Still gets immunotherapy but last radiation was said to be in the fall 2022. No known history of heart or pulmonary disease. Objective Data Objective Data Vital Signs: Vital Signs Temp Pulse Resp BP O2 Del Method 97.1 F L 65 16 105/47 L Room Air 10/28/23 10:49 10/28/23 10:49 10/28/23 10:49 10/28/23 10:49 10/28/23 10:49 Oxygen Delivery Method Room Air Weight: 165 lb Body Mass Index (BMI) 27.4 Physical Exam Const alert, oriented x3 and no apparent distress General Appearance: cooperative HEENT normocephalic and head/scalp atraumatic Face and Sinus: normal facial exam Eyes EOMs intact bilaterally General Eye: normal appearance of both eyes Neck full ROM General: normal visual inspection Resp normal respiratory effort Effort and Inspection: able to speak in complete sentences Skin Wounds: wounds noted Neuro oriented x3 and CN's II-XII intact bilaterally Psych mental status grossly normal, thought process normal, cooperative, affect normal and speech normal Debridement Note Debridement Note Wound debrided: Upper back (superior cervical) Type of Debridement: Excisional debridement Anesthesia Used: 5% Lidocaine Gel Depth: Down to and including healthy tissue and in the subcutaneous layer Percentage of wound debrided: 100 Instrument Used: 3mm curette Tissue Removed: Slough and devitalized tissue Severity: Fat Layer Exposed Bleeding Controlled with: Pressure and Compression and gauze Patient tolerated procedure: Patient tolerated procedure well Post-Debridement Measurements and Additional Note: Post-Debridement Measurements/Treatment - Nurse 1 - General Ulcer Assessment Start: 10/28/23 10:49 Freq: Status: Active Protocol: RAUL Activity Type Activity Date Activity User E-sign Co-sign Detail Recorded Client Recorded Date Recorded By Document 10/28/23 10:49 [facility] [employer] 10/28/23 10:56 [facility] 10/28/23 10:49 WC - Today's Visit Information Type of service Follow-up Visit (Physician/NAIL ARTIST ) Arrival Mode Wheelchair Transfer Assistance None Patient Identification Verified (Name & Yes ) Patient Requires Transmission-Based No Precautions Height and Weight Body Mass Index (BMI) 27.4 BMI Classification Overweight Vital Signs Temperature (97.8 F-99.1 F) 97.1 F L Temperature Source Temporal Pulse Rate (60-100) 65 Pulse Location Monitor Respiratory Rate (12-18) 16 Respiratory rate source Observation Oxygen Delivery Method Room Air Blood Pressure (90/60-120/80) 105/47 L Blood Pressure Mean (mm Hg) 66 Source Monitor Position Sitting Blood Pressure Location Right Arm History Since Last Visit- (Skip if this is Patient's initial visit) Have you changed medications since your No last visit? Any new allergies or adverse reactions No Had a fall/change in ADL's that may No increase risk of falls Signs or symptoms of abuse and/or No neglect since last visit Have you been in the hospital since your No last visit? Has dressing in place as prescribed Yes Has compression in place as prescribed N/A Has offloadiing in place as prescribed N/A Experienced any changes in pain level or No management Left Footwear Regular Shoe Right Footwear Regular Shoe Pain Scale: 0-10 Numeric Is Patient Pain Free? Yes - Nurse 1 - General Ulcer Measurement Start: 10/28/23 10:49 Freq: Status: Active Protocol: Activity Type Activity Date Activity User E-sign Co-sign Detail Recorded Client Recorded Date Recorded By Document 10/28/23 10:49 [facility] [employer] 10/28/23 10:56 [facility] 10/28/23 10:49 Wound Center Nurse 1 #2- CERVICAL INFERIOR WOUND (SURGICAL) -Combined with other wound No -Current Size (cm) - Length 0.4 -Current Size (cm) - Width 0.6 -Current Size (cm) - Depth 2.1 -Total Square Cm 0.24 -Date of Last Picture (Recall this 10/28/23 field) -Photo Taken Yes -Epithelialization None Present -Tunneling No -Undermining/Tunneling Yes -Undermining/Tunneling Starts (O'clock 1 ) -Undermining/Tunneling Ends (O'clock) 2 -Maximum Distance (cm) 1.5 -Exudate Amt Medium -Exudate Type Serosanguineous -Wound Margin Distinct, Outline Attached -Granulation Amt Large (67-100%) -Granulation Quality Red -Slough/Fibrin Yes -Necrosis Amt Small (1-33%) -Necrotic Tissue Type Adherent Slough -Texture (Ritika-wound Skin Appearance) Assessed, Scarring -Moisture (Ritika-wound Skin Appearance) Assessed -Color (Ritika-wound Skin Appearance) Assessed -Temperature (Ritika-wound Skin No Abnormality Appearance) (Pt Warm) -Tenderness on Palpation (Ritika-wound No Skin Appearance) -Ulcer Cleansing Rinsed/ Irrigated with Saline -Foul Odor after Cleansing No -Anesthetic Used 5% Lidocaine Gel #1- SUPERIOR CERIVICAL SPINE (SURGICAL) -Combined with other wound No -Current Size (cm) - Length 0.5 -Current Size (cm) - Width 0.5 -Current Size (cm) - Depth 0.7 -Total Square Cm 0.25 -Date of Last Picture (Recall this 10/28/23 field) -Photo Taken Yes -Epithelialization None Present -Tunneling No -Undermining/Tunneling No -Exudate Amt Medium -Exudate Type Purulent -Wound Margin Distinct, Outline Attached -Granulation Amt Large (67-100%) -Granulation Quality Red -Slough/Fibrin Yes -Necrosis Amt Small (1-33%) -Necrotic Tissue Type Adherent Slough -Texture (Ritika-wound Skin Appearance) Assessed, Scarring -Moisture (Ritika-wound Skin Appearance) Assessed -Color (Ritika-wound Skin Appearance) Assessed -Temperature (Ritika-wound Skin No Abnormality Appearance) (Pt Warm) -Tenderness on Palpation (Ritika-wound No Skin Appearance) -Ulcer Cleansing Rinsed/ Irrigated with Saline -Foul Odor after Cleansing No -Anesthetic Used 5% Lidocaine Gel WC - Nurse 2 - General Ulcer CM Notes Start: 10/28/23 10:49 Freq: Status: Active Protocol: Activity Type Activity Date Activity User E-sign Co-sign Detail Recorded Client Recorded Date Recorded By Document 10/28/23 11:14 Desktop 10/28/23 11:16 10/28/23 11:14 Wound Center Nurse 2 #2- CERVICAL INFERIOR WOUND (SURGICAL) -Time 11:14 -Correct Patient Yes -Correct Side, Site, Position Yes -Correct Procedure Yes -Procedure Performed Yes -Type of Procedure Debridement -Clinical Debridement Subcutaneous -Tissue Removed Subcutaneous -Post Debridement (cm) - Length 0.4 -Post Debridement (cm) - Width 0.6 -Post Debridement (cm) - Depth 2.5 -Total Square (Post) (cm) 0.24 -Area of Debridement (cm) - Length 0.4 -Area of Debridement (cm) - Width 0.6 -Total Square (Area) (cm) 0.24 -Tunneling No -Undermining/Tunneling No -Circular Undermining No -Wound/Ulcer Outcome Not Healed -Ulcer Cleansing Rinsed/ Irrigated with Saline -Foul Odor after Cleansing No -Bioengineered Tissue No -Bleeding Controlled with Pressure -Treatment Response Procedure Tolerated Well -Assistive Device(s) Wheelchair -Debridement - Subq, 1st 20sq cm No #1- SUPERIOR CERIVICAL SPINE (SURGICAL) -Time 11:15 -Correct Patient Yes -Correct Side, Site, Position Yes -Correct Procedure Yes -Procedure Performed Yes -Type of Procedure Debridement -Clinical Debridement Subcutaneous -Tissue Removed Subcutaneous -Post Debridement (cm) - Length 0.7 -Post Debridement (cm) - Width 0.4 -Post Debridement (cm) - Depth 1.7 -Total Square (Post) (cm) 0.28 -Tunneling No -Undermining/Tunneling No -Circular Undermining No -Wound/Ulcer Outcome Not Healed -Ulcer Cleansing Rinsed/ Irrigated with Saline -Foul Odor after Cleansing No -Bioengineered Tissue No -Bleeding Controlled with Pressure -Treatment Response Procedure Tolerated Well -Debridement - Subq, 1st 20sq cm Yes Pain Scale: 0-10 Numeric Is Patient Pain Free? Yes WC - Nurse 3 - General Ulcer D/C NN Start: 10/28/23 10:49 Freq: Status: Active Protocol: Activity Type Activity Date Activity User E-sign Co-sign Detail Recorded Client Recorded Date Recorded By Document 10/28/23 11:19 Desktop 10/28/23 11:20 RB 10/28/23 11:19 Wound Care Center Nurse 3 #2- CERVICAL INFERIOR WOUND (SURGICAL) -Ulcer Cleansing Rinsed/ Irrigated with Saline -Primary Dressing Applied Aquacel Extra, Mepilex Border -Aquacel Extra 1 -Mepilex Border 1 #1- SUPERIOR CERIVICAL SPINE (SURGICAL) -Other Dressing aquacel extra Treatment Response Procedure Tolerated Well Pain Scale: 0-10 Numeric Is Patient Pain Free? Yes Teaching: Wound Center Dressing changes -Person Taught Patient -Teaching Method Discussion, Demonstration -Response to teaching Verbalize understanding WC - Visit Discharge Discharge Condition Stable Ambulatory Status Wheelchair Transportation Private Auto Medication Reconcilliation completed & No provided to patient/care provider Clinical Summary of Care Provided Yes Additional Wound Wound debrided: Upper back (inferior Cervical) Type of Debridement: Excisional debridement Anesthesia Used: 5% Lidocaine Gel Depth: Down to and including healthy tissue and in the subcutaneous layer Percentage of wound debrided: 100 Instrument Used: 3mm curette Tissue Removed: Slough and devitalized tissue Severity: Fat Layer Exposed Amount of bleeding with debridement: Mild Bleeding Controlled with: Pressure Patient tolerated procedure: Patient tolerated procedure well Assessment/Plan Assessment/Plan (1) Non-healing surgical wound: CODE(S): T81.89XA - Other complications of procedures, not elsewhere classified, initial encounter QUALIFIERS: Encounter type: initial encounter Qualified Code(s): T81.89XA - Other complications of procedures, not elsewhere classified, initial encounter (2) Multiple myeloma: CODE(S): C90.00 - Multiple myeloma not having achieved remission (3) History of radiation therapy: CODE(S): Z92.3 - Personal history of irradiation (4) Paraplegia: CODE(S): G82.20 - Paraplegia, unspecified PLAN: Plan Debridement done as documented above, procedure was well-tolerated. No new concerns reported at this time. Some improvement noted. As above, now open to HBO. Has questions about transportation. Will look into the process. For now, continue Aquacel extra, change daily to twice daily depending on drainage. Prealbumin slightly low, continue Ariel twice daily. Vitamin C, D and zinc also recommended, he voiced understanding. His questions were answered and he was advised to let us know if he has any further questions or concerns. Follow-up in 2 weeks per patient preference. This note was generated with [employer] software. It may contain incorrect words, spelling, and punctuation that were not noted in checking the note before signing.
[2023-11-11 10:30] VITALS: BP 100/41; PULSE 56; RESP 16; TEMP 36.7; BMI 27.4
--- NOTE | 2023-11-11 12:30 | PCM.WC.PN ---
History of Present Illness Date of Service: 11/11/23 Chief Complaint: Non healing surgical wound History of Wound: Mr. Barron is a 68-year-old who was referred to this facility due to nonhealing surgical wound. Had surgery in October due to multiple myeloma. Surgery was uneventful with most of the surgical site healed but 2 areas which have not healed. He states that he has had wound dressings down to the area including a wound VAC. Not particularly sure what type of dressings he has had. He is not sure how much drainage he is getting from the area either. Currently resides in an assisted living facility. Still follows up closely with oncology and is on monthly chemotherapy regimen and dexamethasone. Had also had radiation therapy to the area. He feels well otherwise. States that he eats good. Progress of Wound: No new concerns at this time. Awaiting HBO consult as patient is now open to this. Per oncology, no contraindication to HBO due to his diagnosis of myeloma or while on immunotherapy. No known history of cardiac or pulmonary disease per patient. Objective Data Objective Data Vital Signs: Vital Signs Temp Pulse Resp BP O2 Del Method 98.1 F 56 L 16 100/41 L Room Air 11/11/23 10:30 11/11/23 10:30 11/11/23 10:30 11/11/23 10:30 11/11/23 10:30 Oxygen Delivery Method Room Air Weight: 165 lb Body Mass Index (BMI) 27.4 Charges/Coding Procedures Integumentary [id number]: [id number] Marley subq tissue 20 sq cm/< Debridement Note Debridement Note Wound debrided: Upper back (superior cervical) Type of Debridement: Excisional debridement Anesthesia Used: 5% Lidocaine Gel Depth: Down to and including healthy tissue and in the subcutaneous layer Percentage of wound debrided: 100 Instrument Used: 3mm curette Tissue Removed: Slough and devitalized tissue Severity: Fat Layer Exposed Bleeding Controlled with: Pressure and Compression and gauze Patient tolerated procedure: Patient tolerated procedure well Post-Debridement Measurements and Additional Note: Post-Debridement Measurements/Treatment - Nurse 1 - General Ulcer Assessment Start: 10/28/23 10:49 Freq: Status: Active Protocol: RAUL Activity Type Activity Date Activity User E-sign Co-sign Detail Recorded Client Recorded Date Recorded By Document 10/28/23 10:49 [facility] Desktop 10/28/23 10:56 F Document 11/11/23 10:30 [email or web address] Desktop 11/11/23 10:38 F 10/28/23 11/11/23 10:49 10:30 - Today's Visit Information Type of service Follow-up Visit Follow-up Visit (Physician/ADOPTION SERVICES MANAGER (Physician/ADOPTION SERVICES MANAGER ) ) Arrival Mode Wheelchair Wheelchair Transfer Assistance None None Patient Identification Verified (Name & Yes Yes ) Patient Requires Transmission-Based No No Precautions Height and Weight Body Mass Index (BMI) 27.4 27.4 BMI Classification Overweight Overweight Vital Signs Temperature (97.8 F-99.1 F) 97.1 F L 98.1 F Temperature Source Temporal Temporal Pulse Rate (60-100) 65 56 L Pulse Location Monitor Monitor Respiratory Rate (12-18) 16 16 Respiratory rate source Observation Observation Oxygen Delivery Method Room Air Room Air Blood Pressure (90/60-120/80) 105/47 L 100/41 L Blood Pressure Mean (mm Hg) 66 60 Source Monitor Monitor Position Sitting Sitting Blood Pressure Location Right Arm Right Arm History Since Last Visit- (Skip if this is Patient's initial visit) Have you changed medications since your No No last visit? Any new allergies or adverse reactions No No Had a fall/change in ADL's that may No No increase risk of falls Signs or symptoms of abuse and/or No No neglect since last visit Have you been in the hospital since your No No last visit? Has dressing in place as prescribed Yes Yes Has compression in place as prescribed N/A N/A Has offloadiing in place as prescribed N/A N/A Experienced any changes in pain level or No No management Left Footwear Regular Shoe Regular Shoe Right Footwear Regular Shoe Regular Shoe Pain Scale: 0-10 Numeric Is Patient Pain Free? Yes Yes - Nurse 1 - General Ulcer Measurement Start: 10/28/23 10:49 Freq: Status: Active Protocol: Activity Type Activity Date Activity User E-sign Co-sign Detail Recorded Client Recorded Date Recorded By Document 10/28/23 10:49 [facility] Desktop 10/28/23 10:56 [facility] Document 11/11/23 10:30 [email or web address] [facility] [email or web address] Desktop 11/11/23 10:38 [facility] 10/28/23 11/11/23 10:49 10:30 Wound Center Nurse 1 #2- CERVICAL INFERIOR WOUND (SURGICAL) -Combined with other wound No No -Current Size (cm) - Length 0.4 0.4 -Current Size (cm) - Width 0.6 0.3 -Current Size (cm) - Depth 2.1 1.6 -Total Square Cm 0.24 0.12 -Date of Last Picture (Recall this 10/28/23 11/11/23 field) -Photo Taken Yes Yes -Epithelialization None Present None Present -Tunneling No -Undermining/Tunneling Yes -Undermining/Tunneling Starts (O'clock 1 ) -Undermining/Tunneling Ends (O'clock) 2 -Maximum Distance (cm) 1.5 -Exudate Amt Medium Medium -Exudate Type Serosanguineous Yellow/Green -Wound Margin Distinct, Distinct, Outline Outline Attached Attached -Granulation Amt Large (67-100%) Medium (34-66%) -Granulation Quality Red Red -Slough/Fibrin Yes Yes -Necrosis Amt Small (1-33%) Medium (34-66%) -Necrotic Tissue Type Adherent Slough Adherent Slough -Texture (Ritika-wound Skin Appearance) Assessed, Assessed, Scarring Scarring -Moisture (Ritika-wound Skin Appearance) Assessed Assessed, Maceration -Color (Ritika-wound Skin Appearance) Assessed Assessed, Erythema -Temperature (Ritika-wound Skin No Abnormality No Abnormality Appearance) (Pt Warm) (Pt Warm) -Tenderness on Palpation (Ritika-wound No No Skin Appearance) -Ulcer Cleansing Rinsed/ Soap and Water Irrigated with Saline -Foul Odor after Cleansing No No -Anesthetic Used 5% Lidocaine 5% Lidocaine Gel Gel #1- SUPERIOR CERIVICAL SPINE (SURGICAL) -Combined with other wound No No -Current Size (cm) - Length 0.5 0.7 -Current Size (cm) - Width 0.5 0.5 -Current Size (cm) - Depth 0.7 0.6 -Total Square Cm 0.25 0.35 -Date of Last Picture (Recall this 10/28/23 11/11/23 field) -Photo Taken Yes Yes -Epithelialization None Present -Tunneling No -Undermining/Tunneling No -Exudate Amt Medium Medium -Exudate Type Purulent Yellow/Green -Wound Margin Distinct, Distinct, Outline Outline Attached Attached -Granulation Amt Large (67-100%) Medium (34-66%) -Granulation Quality Red Red -Slough/Fibrin Yes Yes -Necrosis Amt Small (1-33%) Medium (34-66%) -Necrotic Tissue Type Adherent Slough Adherent Slough -Texture (Ritika-wound Skin Appearance) Assessed, Assessed, Scarring Scarring -Moisture (Ritika-wound Skin Appearance) Assessed Assessed, Maceration -Color (Ritika-wound Skin Appearance) Assessed Assessed, Erythema -Temperature (Ritika-wound Skin No Abnormality No Abnormality Appearance) (Pt Warm) (Pt Warm) -Tenderness on Palpation (Ritika-wound No No Skin Appearance) -Ulcer Cleansing Rinsed/ Soap and Water Irrigated with Saline -Foul Odor after Cleansing No No -Anesthetic Used 5% Lidocaine 5% Lidocaine Gel Gel WC - Nurse 2 - General Ulcer CM Notes Start: 10/28/23 10:49 Freq: Status: Active Protocol: Activity Type Activity Date Activity User E-sign Co-sign Detail Recorded Client Recorded Date Recorded By Document 10/28/23 11:14 [facility] Desktop 10/28/23 11:16 GM Document 11/11/23 10:45 Desktop 11/11/23 10:54 GM 10/28/23 11/11/23 11:14 10:45 Wound Center Nurse 2 #2- CERVICAL INFERIOR WOUND (SURGICAL) -Time 11:14 10:46 -Correct Patient Yes Yes -Correct Side, Site, Position Yes Yes -Correct Procedure Yes Yes -Procedure Performed Yes Yes -Type of Procedure Debridement Debridement -Clinical Debridement Subcutaneous Subcutaneous -Tissue Removed Subcutaneous Subcutaneous -Post Debridement (cm) - Length 0.4 0.4 -Post Debridement (cm) - Width 0.6 0.3 -Post Debridement (cm) - Depth 2.5 2.2 -Total Square (Post) (cm) 0.24 0.12 -Area of Debridement (cm) - Length 0.4 0.4 -Area of Debridement (cm) - Width 0.6 0.3 -Total Square (Area) (cm) 0.24 0.12 -Tunneling No No -Undermining/Tunneling No No -Circular Undermining No No -Wound/Ulcer Outcome Not Healed -Ulcer Cleansing Rinsed/ Rinsed/ Irrigated with Irrigated with Saline Saline -Foul Odor after Cleansing No No -Bioengineered Tissue No No -Bleeding Controlled with Pressure Pressure -Treatment Response Procedure Procedure Tolerated Well Tolerated Well -Assistive Device(s) Wheelchair -Debridement - Subq, 1st 20sq cm No Yes #1- SUPERIOR CERIVICAL SPINE (SURGICAL) -Time 11:15 10:46 -Correct Patient Yes Yes -Correct Side, Site, Position Yes Yes -Correct Procedure Yes Yes -Procedure Performed Yes Yes -Type of Procedure Debridement Debridement -Clinical Debridement Subcutaneous Subcutaneous -Tissue Removed Subcutaneous Subcutaneous -Post Debridement (cm) - Length 0.7 0.7 -Post Debridement (cm) - Width 0.4 0.5 -Post Debridement (cm) - Depth 1.7 1.8 -Total Square (Post) (cm) 0.28 0.35 -Area of Debridement (cm) - Length 0.7 -Area of Debridement (cm) - Width 0.5 -Total Square (Area) (cm) 0.35 -Tunneling No No -Undermining/Tunneling No No -Circular Undermining No No -Wound/Ulcer Outcome Not Healed Not Healed -Ulcer Cleansing Rinsed/ Rinsed/ Irrigated with Irrigated with Saline Saline -Foul Odor after Cleansing No No -Bioengineered Tissue No No -Bleeding Controlled with Pressure Pressure -Treatment Response Procedure Procedure Tolerated Well Tolerated Well -Debridement - Subq, 1st 20sq cm Yes No Pain Scale: 0-10 Numeric Is Patient Pain Free? Yes Yes - Nurse 3 - General Ulcer D/C NN Start: 10/28/23 10:49 Freq: Status: Active Protocol: Activity Type Activity Date Activity User E-sign Co-sign Detail Recorded Client Recorded Date Recorded By Document 10/28/23 11:19 Desktop 10/28/23 11:20 RB Document 11/11/23 11:04 [facility] Desktop 11/11/23 11:06 [facility] 10/28/23 11/11/23 11:19 11:04 Wound Care Center Nurse 3 #2- CERVICAL INFERIOR WOUND (SURGICAL) -Ulcer Cleansing Rinsed/ Rinsed/ Irrigated with Irrigated with Saline Saline -Foul Odor after Cleansing No -Primary Dressing Applied Aquacel Extra, Aquacel Extra, Mepilex Border Mepilex Border -Aquacel Extra 1 1 -Mepilex Border 1 1 #1- SUPERIOR CERIVICAL SPINE (SURGICAL) -Ulcer Cleansing Rinsed/ Irrigated with Saline -Foul Odor after Cleansing No -Primary Dressing Applied Aquacel Extra, Mepilex Border -Other Dressing aquacel extra -Aquacel Extra 0 -Mepilex Border 0 Treatment Response Procedure Procedure Tolerated Well Tolerated Well Pain Scale: 0-10 Numeric Is Patient Pain Free? Yes Yes Teaching: Wound Center Dressing changes -Person Taught Patient -Teaching Method Discussion, Demonstration -Response to teaching Verbalize understanding WC - Visit Discharge Discharge Condition Stable Stable Ambulatory Status Wheelchair Wheelchair Transportation Private Auto ecf Medication Reconcilliation completed & No provided to patient/care provider Clinical Summary of Care Provided Yes Facility Type Intermediate Care Facility Additional Wound Wound debrided: Upper back (inferior Cervical) Type of Debridement: Excisional debridement Anesthesia Used: 5% Lidocaine Gel Depth: Down to and including healthy tissue and in the subcutaneous layer Percentage of wound debrided: 100 Instrument Used: 3mm curette Tissue Removed: Slough and devitalized tissue Severity: Fat Layer Exposed Amount of bleeding with debridement: Mild Bleeding Controlled with: Pressure Patient tolerated procedure: Patient tolerated procedure well Assessment/Plan Assessment/Plan (1) Non-healing surgical wound: CODE(S): T81.89XA - Other complications of procedures, not elsewhere classified, initial encounter QUALIFIERS: Encounter type: initial encounter Qualified Code(s): T81.89XA - Other complications of procedures, not elsewhere classified, initial encounter (2) Multiple myeloma: CODE(S): C90.00 - Multiple myeloma not having achieved remission (3) History of radiation therapy: CODE(S): Z92.3 - Personal history of irradiation (4) Paraplegia: CODE(S): G82.20 - Paraplegia, unspecified PLAN: Plan Debridement done as documented above, procedure was well-tolerated. No new concerns reported at this time. Awaiting HBO consult. Okay per oncology as documented above. For now, continue Aquacel extra, change daily to twice daily depending on drainage. Prealbumin slightly low, continue Ariel twice daily. Vitamin C, D and zinc also recommended, he voiced understanding. His questions were answered and he was advised to let us know if he has any further questions or concerns. Follow-up in 2 weeks per patient preference. This note was generated with [email or web address] software. It may contain incorrect words, spelling, and punctuation that were not noted in checking the note before signing.
[2023-11-25 10:28] VITALS: BP 106/56; PULSE 60; RESP 16; TEMP 36.6; BMI 27.4
--- NOTE | 2023-11-25 11:04 | PCM.WC.PN ---
History of Present Illness Date of Service: 11/25/23 Chief Complaint: Non healing surgical wound History of Wound: Mr. Barorn is a 68-year-old who was referred to this facility due to nonhealing surgical wound. Had surgery in October due to multiple myeloma. Surgery was uneventful with most of the surgical site healed but 2 areas which have not healed. He states that he has had wound dressings down to the area including a wound VAC. Not particularly sure what type of dressings he has had. He is not sure how much drainage he is getting from the area either. Currently resides in an assisted living facility. Still follows up closely with oncology and is on monthly chemotherapy regimen and dexamethasone. Had also had radiation therapy to the area. He feels well otherwise. States that he eats good. Progress of Wound: No new concerns at this time. Overall, stable wounds. As previously documented, patient is agreeable to HBO however, we do not have availability at this facility for couple months. Objective Data Objective Data Vital Signs: Vital Signs Temp Pulse Resp BP O2 Del Method 97.8 F 60 16 106/56 L Room Air 11/25/23 10:28 11/25/23 10:28 11/25/23 10:28 11/25/23 10:28 11/25/23 10:28 Oxygen Delivery Method Room Air Weight: 165 lb Body Mass Index (BMI) 27.4 Charges/Coding Procedures Integumentary 111xxx-113xx: [id number] Marley subq tissue 20 sq cm/< Physical Exam Const alert, oriented x3 and no apparent distress General Appearance: cooperative HEENT normocephalic and head/scalp atraumatic Face and Sinus: normal facial exam Eyes EOMs intact bilaterally General Eye: normal appearance of both eyes Neck full ROM General: normal visual inspection Resp normal respiratory effort Effort and Inspection: able to speak in complete sentences Skin Wounds: wounds noted Neuro oriented x3 and CN's II-XII intact bilaterally Psych mental status grossly normal, thought process normal, cooperative, affect normal and speech normal Debridement Note Debridement Note Wound debrided: Upper back (superior cervical) Type of Debridement: Excisional debridement Anesthesia Used: 5% Lidocaine Gel Depth: Down to and including healthy tissue and in the subcutaneous layer Percentage of wound debrided: 100 Instrument Used: 3mm curette Tissue Removed: Slough and devitalized tissue Severity: Fat Layer Exposed Bleeding Controlled with: Pressure and Compression and gauze Patient tolerated procedure: Patient tolerated procedure well Post-Debridement Measurements and Additional Note: Post-Debridement Measurements/Treatment WC - Nurse 1 - General Ulcer Assessment Start: 10/28/23 10:49 Freq: Status: Active Protocol: RAUL Activity Type Activity Date Activity User E-sign Co-sign Detail Recorded Client Recorded Date Recorded By Document 10/28/23 10:49 [employer] Desktop 10/28/23 10:56 [employer] Keyboard Document 11/11/23 10:30 [employer] Desktop 11/11/23 10:38 BMF Document 11/25/23 10:28 [employer] Desktop 11/25/23 10:34 BMF 10/28/23 11/11/23 11/25/23 10:49 10:30 10:28 - Today's Visit Information Type of service Follow-up Visit Follow-up Visit Follow-up Visit (Physician/CRIMINAL JUSTICE INSTRUCTOR (Physician/CRIMINAL JUSTICE INSTRUCTOR (Physician/CRIMINAL JUSTICE INSTRUCTOR ) ) ) Arrival Mode Wheelchair Wheelchair Wheelchair Transfer Assistance None None None Patient Identification Verified (Name & Yes Yes Yes ) Patient Requires Transmission-Based No No No Precautions Height and Weight Body Mass Index (BMI) 27.4 27.4 27.4 BMI Classification Overweight Overweight Overweight Vital Signs Temperature (97.8 F-99.1 F) 97.1 F L 98.1 F 97.8 F Temperature Source Temporal Temporal Temporal Pulse Rate (60-100) 65 56 L 60 Pulse Location Monitor Monitor Monitor Respiratory Rate (12-18) 16 16 16 Respiratory rate source Observation Observation Observation Oxygen Delivery Method Room Air Room Air Room Air Blood Pressure (90/60-120/80) 105/47 L 100/41 L 106/56 L Blood Pressure Mean (mm Hg) 66 60 72 Source Monitor Monitor Monitor Position Sitting Sitting Sitting Blood Pressure Location Right Arm Right Arm Right Arm History Since Last Visit- (Skip if this is Patient's initial visit) Have you changed medications since your No No No last visit? Any new allergies or adverse reactions No No No Had a fall/change in ADL's that may No No No increase risk of falls Signs or symptoms of abuse and/or No No No neglect since last visit Have you been in the hospital since your No No No last visit? Has dressing in place as prescribed Yes Yes Yes Has compression in place as prescribed N/A N/A N/A Has offloadiing in place as prescribed N/A N/A N/A Experienced any changes in pain level or No No No management Left Footwear Regular Shoe Regular Shoe Regular Shoe Right Footwear Regular Shoe Regular Shoe Regular Shoe Pain Scale: 0-10 Numeric Is Patient Pain Free? Yes Yes Yes WC - Nurse 1 - General Ulcer Measurement Start: 10/28/23 10:49 Freq: Status: Active Protocol: Activity Type Activity Date Activity User E-sign Co-sign Detail Recorded Client Recorded Date Recorded By Document 10/28/23 10:49 [employer] Desktop 10/28/23 10:56 [employer] Document 11/11/23 10:30 [employer] Desktop 11/11/23 10:38 [employer] Document 11/25/23 10:28 [employer] Desktop 11/25/23 10:34 BMF 10/28/23 11/11/23 11/25/23 10:49 10:30 10:28 Wound Center Nurse 1 #2- CERVICAL INFERIOR WOUND (SURGICAL) -Combined with other wound No No No -Current Size (cm) - Length 0.4 0.4 0.4 -Current Size (cm) - Width 0.6 0.3 0.5 -Current Size (cm) - Depth 2.1 1.6 2.1 -Total Square Cm 0.24 0.12 0.20 -Date of Last Picture (Recall this 10/28/23 11/11/23 11/25/23 field) -Photo Taken Yes Yes Yes -Epithelialization None Present None Present None Present -Tunneling No No -Undermining/Tunneling Yes No -Undermining/Tunneling Starts (O'clock 1 ) -Undermining/Tunneling Ends (O'clock) 2 -Maximum Distance (cm) 1.5 -Circular Undermining No -Exudate Amt Medium Medium Medium -Exudate Type Serosanguineous Yellow/Green Purulent -Wound Margin Distinct, Distinct, Distinct, Outline Outline Outline Attached Attached Attached -Granulation Amt Large (67-100%) Medium (34-66%) Large (67-100%) -Granulation Quality Red Red Red -Slough/Fibrin Yes Yes Yes -Necrosis Amt Small (1-33%) Medium (34-66%) Small (1-33%) -Necrotic Tissue Type Adherent Slough Adherent Slough Adherent Slough -Texture (Ritika-wound Skin Appearance) Assessed, Assessed, Assessed, Scarring Scarring Scarring -Moisture (Ritika-wound Skin Appearance) Assessed Assessed, Assessed Maceration -Color (Ritika-wound Skin Appearance) Assessed Assessed, Assessed Erythema -Temperature (Riitka-wound Skin No Abnormality No Abnormality No Abnormality Appearance) (Pt Warm) (Pt Warm) (Pt Warm) -Tenderness on Palpation (Ritika-wound No No No Skin Appearance) -Ulcer Cleansing Rinsed/ Soap and Water Soap and Water Irrigated with Saline -Foul Odor after Cleansing No No No -Anesthetic Used 5% Lidocaine 5% Lidocaine 5% Lidocaine Gel Gel Gel #1- SUPERIOR CERIVICAL SPINE (SURGICAL) -Combined with other wound No No No -Current Size (cm) - Length 0.5 0.7 0.6 -Current Size (cm) - Width 0.5 0.5 0.3 -Current Size (cm) - Depth 0.7 0.6 1.9 -Total Square Cm 0.25 0.35 0.18 -Date of Last Picture (Recall this 10/28/23 11/11/23 11/25/23 field) -Photo Taken Yes Yes Yes -Epithelialization None Present None Present -Tunneling No No -Undermining/Tunneling No No -Circular Undermining No -Exudate Amt Medium Medium Medium -Exudate Type Purulent Yellow/Green Purulent -Wound Margin Distinct, Distinct, Distinct, Outline Outline Outline Attached Attached Attached -Granulation Amt Large (67-100%) Medium (34-66%) Large (67-100%) -Granulation Quality Red Red Red -Slough/Fibrin Yes Yes Yes -Necrosis Amt Small (1-33%) Medium (34-66%) Small (1-33%) -Necrotic Tissue Type Adherent Slough Adherent Slough Adherent Slough -Texture (Ritika-wound Skin Appearance) Assessed, Assessed, Assessed, Scarring Scarring Scarring -Moisture (Ritika-wound Skin Appearance) Assessed Assessed, Assessed Maceration -Color (Ritika-wound Skin Appearance) Assessed Assessed, Assessed Erythema -Temperature (Ritika-wound Skin No Abnormality No Abnormality No Abnormality Appearance) (Pt Warm) (Pt Warm) (Pt Warm) -Tenderness on Palpation (Ritika-wound No No No Skin Appearance) -Ulcer Cleansing Rinsed/ Soap and Water Soap and Water Irrigated with Saline -Foul Odor after Cleansing No No No -Anesthetic Used 5% Lidocaine 5% Lidocaine 5% Lidocaine Gel Gel Gel WC - Nurse 2 - General Ulcer CM Notes Start: 10/28/23 10:49 Freq: Status: Active Protocol: Activity Type Activity Date Activity User E-sign Co-sign Detail Recorded Client Recorded Date Recorded By Document 10/28/23 11:14 Desktop 10/28/23 11:16 Document 11/11/23 10:45 Desktop 11/11/23 10:54 Document 11/25/23 10:40 Desktop 11/25/23 10:46 10/28/23 11/11/23 11/25/23 11:14 10:45 10:40 Wound Center Nurse 2 #2- CERVICAL INFERIOR WOUND (SURGICAL) -Time 11:14 10:46 10:41 -Correct Patient Yes Yes Yes -Correct Side, Site, Position Yes Yes Yes -Correct Procedure Yes Yes Yes -Procedure Performed Yes Yes Yes -Type of Procedure Debridement Debridement Debridement -Clinical Debridement Subcutaneous Subcutaneous Subcutaneous -Tissue Removed Subcutaneous Subcutaneous Subcutaneous -Post Debridement (cm) - Length 0.4 0.4 0.4 -Post Debridement (cm) - Width 0.6 0.3 0.6 -Post Debridement (cm) - Depth 2.5 2.2 2.3 -Total Square (Post) (cm) 0.24 0.12 0.24 -Area of Debridement (cm) - Length 0.4 0.4 0.4 -Area of Debridement (cm) - Width 0.6 0.3 0.6 -Total Square (Area) (cm) 0.24 0.12 0.24 -Tunneling No No No -Undermining/Tunneling No No No -Circular Undermining No No No -Wound/Ulcer Outcome Not Healed Not Healed -Ulcer Cleansing Rinsed/ Rinsed/ Rinsed/ Irrigated with Irrigated with Irrigated with Saline Saline Saline -Foul Odor after Cleansing No No No -Bioengineered Tissue No No No -Bleeding Controlled with Pressure Pressure Pressure -Treatment Response Procedure Procedure Procedure Tolerated Well Tolerated Well Tolerated Well -Assistive Device(s) Wheelchair -Debridement - Subq, 1st 20sq cm No Yes No #1- SUPERIOR CERIVICAL SPINE (SURGICAL) -Time 11:15 10:46 10:41 -Correct Patient Yes Yes Yes -Correct Side, Site, Position Yes Yes Yes -Correct Procedure Yes Yes Yes -Procedure Performed Yes Yes Yes -Type of Procedure Debridement Debridement Debridement -Clinical Debridement Subcutaneous Subcutaneous Subcutaneous -Tissue Removed Subcutaneous Subcutaneous Subcutaneous -Post Debridement (cm) - Length 0.7 0.7 0.6 -Post Debridement (cm) - Width 0.4 0.5 0.2 -Post Debridement (cm) - Depth 1.7 1.8 1.8 -Total Square (Post) (cm) 0.28 0.35 0.12 -Area of Debridement (cm) - Length 0.7 0.6 -Area of Debridement (cm) - Width 0.5 0.2 -Total Square (Area) (cm) 0.35 0.12 -Tunneling No No No -Undermining/Tunneling No No No -Circular Undermining No No No -Wound/Ulcer Outcome Not Healed Not Healed Not Healed -Ulcer Cleansing Rinsed/ Rinsed/ Rinsed/ Irrigated with Irrigated with Irrigated with Saline Saline Saline -Foul Odor after Cleansing No No No -Bioengineered Tissue No No -Bleeding Controlled with Pressure Pressure Pressure -Treatment Response Procedure Procedure Procedure Tolerated Well Tolerated Well Tolerated Well -Debridement - Subq, 1st 20sq cm Yes No Yes Pain Scale: 0-10 Numeric Is Patient Pain Free? Yes Yes Yes WC - Nurse 3 - General Ulcer D/C NN Start: 10/28/23 10:49 Freq: Status: Active Protocol: Activity Type Activity Date Activity User E-sign Co-sign Detail Recorded Client Recorded Date Recorded By Document 10/28/23 11:19 Desktop 10/28/23 11:20 Document 11/11/23 11:04 [facility] Desktop 11/11/23 11:06 [facility] Document 11/25/23 10:56 [facility] Desktop 11/25/23 10:57 [facility] 10/28/23 11/11/23 11/25/23 11:19 11:04 10:56 Wound Care Center Nurse 3 #2- CERVICAL INFERIOR WOUND (SURGICAL) -Ulcer Cleansing Rinsed/ Rinsed/ Rinsed/ Irrigated with Irrigated with Irrigated with Saline Saline Saline -Foul Odor after Cleansing No No -Primary Dressing Applied Aquacel Extra, Aquacel Extra, Aquacel Extra, Mepilex Border Mepilex Border Mepilex Border -Other Dressing FLUFFED GAUZE; PER GM RN -Primary Dressing Covered/Secured with Dry Gauze -Aquacel Extra 1 1 1 -Mepilex Border 1 1 1 #1- SUPERIOR CERIVICAL SPINE (SURGICAL) -Ulcer Cleansing Rinsed/ Rinsed/ Irrigated with Irrigated with Saline Saline -Foul Odor after Cleansing No No -Primary Dressing Applied Aquacel Extra, Aquacel Extra, Mepilex Border Mepilex Border -Other Dressing aquacel extra FLUFFED GAUZE; PER GM RN -Primary Dressing Covered/Secured with Dry Gauze -Aquacel Extra 0 0 -Mepilex Border 0 0 Treatment Response Procedure Procedure Procedure Tolerated Well Tolerated Well Tolerated Well Pain Scale: 0-10 Numeric Is Patient Pain Free? Yes Yes Yes Teaching: Wound Center Dressing changes -Person Taught Patient -Teaching Method Discussion, Demonstration -Response to teaching Verbalize understanding WC - Visit Discharge Discharge Condition Stable Stable Stable Ambulatory Status Wheelchair Wheelchair Wheelchair Transportation Private Auto ecf ECF Medication Reconcilliation completed & No provided to patient/care provider Clinical Summary of Care Provided Yes Facility Type [facility] Additional Wound Wound debrided: Upper back (inferior Cervical) Type of Debridement: Excisional debridement Anesthesia Used: 5% Lidocaine Gel Depth: Down to and including healthy tissue and in the subcutaneous layer Percentage of wound debrided: 100 Instrument Used: 3mm curette Tissue Removed: Slough and devitalized tissue Severity: Fat Layer Exposed Amount of bleeding with debridement: Mild Bleeding Controlled with: Pressure Patient tolerated procedure: Patient tolerated procedure well Assessment/Plan Assessment/Plan (1) Non-healing surgical wound: CODE(S): T81.89XA - Other complications of procedures, not elsewhere classified, initial encounter QUALIFIERS: Encounter type: initial encounter Qualified Code(s): T81.89XA - Other complications of procedures, not elsewhere classified, initial encounter (2) Multiple myeloma: CODE(S): C90.00 - Multiple myeloma not having achieved remission (3) History of radiation therapy: CODE(S): Z92.3 - Personal history of irradiation (4) Paraplegia: CODE(S): G82.20 - Paraplegia, unspecified PLAN: Plan Debridement done as documented above, procedure was well-tolerated. Due to non availability of HBO at this facility at this time, will refer to [place] which is the closest. Fo now, continue Aquacel extra, change daily to twice daily depending on drainage. Continue Ariel twice daily. Vitamin C, D and zinc also recommended, he voiced understanding. His questions were answered and he was advised to let us know if he has any further questions or concerns. Follow-up in 2 weeks per patient preference. This note was generated with [employer] dictation software. It may contain incorrect words, spelling, and punctuation that were not noted in checking the note before signing.
--- NOTE | 2023-12-03 12:31 | WC ---
2.15.24 SUP/INF CERVICAL
== END 2023-11-25 23:59 | disposition home or self-care (01) ==
LOC: WC 10:30
PROVIDERS: PCP Family Medicine; Referring Provider Family Medicine; Visit Provider Internal Medicine
DX: T81.89XA Other complications of procedures, not elsewhere classified, initial encounter (principal); C90.00 Multiple myeloma not having achieved remission; G82.20 Paraplegia, unspecified; Z92.3 Personal history of irradiation
CPT/HCPCS: 11042

== ENCOUNTER → 2023-12-13 | Outpatient (REF) | payer MEDICARE, OTHER, SELFPAY ==
[2023-12-13 09:07] LABS: AST(SGOT) 10 U/L (15-37); Alanine Aminotransfer ALT/SGPT 11 U/L (16-61); Albumin, Serum 2.7 g/dL (3.2-5.0); Alkaline Phosphatase 54 U/L (45-117); Anion Gap 4 (5-15); BUN 15 mg/dL (7-18); BUN/Creat Ratio 16.4 RATIO (10-20); Calcium,Total 8.5 mg/dL (8.5-10.1); Chloride 106 mmol/L (98-107); Creatinine, Serum 0.92 mg/dL (0.70-1.30); EST Glomerular Filtration Rate 88 mL/min (>60); Est Glom Filt Rate - Afr Amer 106 mL/min (>60); Globulin 2.7 g/dL (2.2-4.2); Glucose 101 mg/dL (74-106); Potassium 3.9 mmol/L (3.5-5.1); Protein, Total 5.4 g/dL (6.4-8.2); Sodium Level 140 mmol/L (136-145)
== END ==
PROVIDERS: PCP Family Medicine; Visit Provider Family Medicine
DX: R33.9 Retention of urine, unspecified (principal); I10 Essential (primary) hypertension; C79.52 Secondary malignant neoplasm of bone marrow; C90.02 Multiple myeloma in relapse
CPT/HCPCS: 36415; 80053

== ENCOUNTER 2023-12-15 13:00 | Outpatient (RCR) | payer MEDICARE, OTHER, SELFPAY ==
[2023-11-26 00:17] VITALS: BP 106/56; PULSE 60; RESP 16; TEMP 36.6; BMI 27.4
--- NOTE | 2023-12-03 09:08 | WC ---
Called patient about the messages received from Jose regarding patient's home health and wanting to change his dressing orders to three times per week. The patient verbalized that he understands the importance of daily dressing changes and that he was working on getting the facility to assist with his dressing changes. This nurse did let him know that he can contact us if there is anything we can do to assist him.
--- NOTE | 2023-12-03 11:17 | WC ---
Julianaan notified of purulent drainage from wound that was reported by nurse, Dr. Shah ordered doxycycline 100 mg PO BID for 10 days, the prescription was called into [facility] pharmacy at [id number] and the patient was notified at 1130.
[2023-12-09 10:34] VITALS: BP 97/38; PULSE 52; RESP 18; TEMP 36.3; BMI 27.4
--- NOTE | 2023-12-09 11:52 | PCM.WC.PN ---
History of Present Illness Date of Service: 12/09/23 Chief Complaint: Non healing surgical wound History of Wound: Mr. Barron is a 68-year-old who was referred to this facility due to nonhealing surgical wound. Had surgery in October due to multiple myeloma. Surgery was uneventful with most of the surgical site healed but 2 areas which have not healed. He states that he has had wound dressings down to the area including a wound VAC. Not particularly sure what type of dressings he has had. He is not sure how much drainage he is getting from the area either. Currently resides in an assisted living facility. Still follows up closely with oncology and is on monthly chemotherapy regimen and dexamethasone. Had also had radiation therapy to the area. He feels well otherwise. States that he eats good. Progress of Wound: Call from his facility on 12/02 with concern for purulent drainage. Prescription for Doxycycline was sent in based on prior culture and sensitivity. He is not sure if he actually started taking it or not but he believes he was told about it... No purulent drainage appreciated on exam. Slight worsening to depth of both however noted. He feels well and denies any acute concerns at this time. Objective Data Objective Data Vital Signs: Vital Signs Temp Pulse Resp BP 97.4 F L 52 L 18 97/38 L 12/09/23 10:34 12/09/23 10:34 12/09/23 10:34 12/09/23 10:34 Weight: 165 lb Body Mass Index (BMI) 27.4 Charges/Coding Procedures Integumentary [id number]: [id number] Marley subq tissue 20 sq cm/< Physical Exam Const alert, oriented x3 and no apparent distress General Appearance: cooperative HEENT normocephalic and head/scalp atraumatic Face and Sinus: normal facial exam Eyes EOMs intact bilaterally General Eye: normal appearance of both eyes Neck full ROM General: normal visual inspection Resp normal respiratory effort Effort and Inspection: able to speak in complete sentences Skin Wounds: wounds noted Neuro oriented x3 and CN's II-XII intact bilaterally Psych mental status grossly normal, thought process normal, cooperative, affect normal and speech normal Debridement Note Debridement Note Wound debrided: Upper back (superior cervical) Type of Debridement: Excisional debridement Anesthesia Used: 5% Lidocaine Gel Depth: Down to and including healthy tissue and in the subcutaneous layer Percentage of wound debrided: 100 Instrument Used: 3mm curette Tissue Removed: Slough and devitalized tissue Severity: Fat Layer Exposed Bleeding Controlled with: Pressure and Compression and gauze Patient tolerated procedure: Patient tolerated procedure well Post-Debridement Measurements and Additional Note: Post-Debridement Measurements/Treatment - Nurse 1 - General Ulcer Assessment Start: 12/09/23 10:34 Freq: Status: Active Protocol: RAUL Activity Type Activity Date Activity User E-sign Co-sign Detail Recorded Client Recorded Date Recorded By Document 12/09/23 10:34 Levelerop 12/09/23 10:36 12/09/23 10:34 - Today's Visit Information Type of service Follow-up Visit (Physician/P[facility] HAND ) Arrival Mode Ambulatory Transfer Assistance None Patient Identification Verified (Name & Yes ) Patient Requires Transmission-Based No Precautions Height and Weight Body Mass Index (BMI) 27.4 BMI Classification Overweight Vital Signs Temperature (97.8 F-99.1 F) 97.4 F L Temperature Source Temporal Pulse Rate (60-100) 52 L Pulse Location Monitor Respiratory Rate (12-18) 18 Respiratory rate source Observation Blood Pressure (90/60-120/80) 97/38 L Blood Pressure Mean (mm Hg) 57 Source Monitor Position Semi-Fowlers Blood Pressure Location Left Arm History Since Last Visit- (Skip if this is Patient's initial visit) Have you changed medications since your No last visit? Any new allergies or adverse reactions No Had a fall/change in ADL's that may No increase risk of falls Signs or symptoms of abuse and/or No neglect since last visit Have you been in the hospital since your No last visit? Has dressing in place as prescribed Yes Has compression in place as prescribed No Has offloadiing in place as prescribed No Experienced any changes in pain level or No management Pain Scale: 0-10 Numeric Is Patient Pain Free? Yes [facility] Nurse 1 - General Ulcer Measurement Start: 12/09/23 10:34 Freq: Status: Active Protocol: Activity Type Activity Date Activity User E-sign Co-sign Detail Recorded Client Recorded Date Recorded By Document 12/09/23 10:34 ALEXANDER Levelerop 12/09/23 10:36 12/09/23 10:34 Wound Center Nurse 1 #2- CERVICAL INFERIOR WOUND (SURGICAL) -Combined with other wound No -Current Size (cm) - Length 0.1 -Current Size (cm) - Width 0.1 -Current Size (cm) - Depth 0.1 -Total Square Cm 0.01 -Tunneling No -Undermining/Tunneling No -Circular Undermining No -Exudate Amt Medium -Exudate Type Serosanguineous -Wound Margin Distinct, Outline Attached -Granulation Amt Medium (34-66%) -Granulation Quality [place] -Slough/Fibrin Yes -Necrosis Amt Medium (34-66%) -Necrotic Tissue Type Adherent Slough -Structure Exposed N/A -Texture (Ritika-wound Skin Appearance) Assessed, Scarring -Moisture (Ritika-wound Skin Appearance) Assessed -Color (Ritika-wound Skin Appearance) Assessed -Temperature (Ritika-wound Skin No Abnormality Appearance) (Pt Warm) -Tenderness on Palpation (Ritika-wound No Skin Appearance) -Ulcer Cleansing Wound Cleanser -Foul Odor after Cleansing No -Anesthetic Used 5% Lidocaine Gel #1- SUPERIOR CERIVICAL SPINE (SURGICAL) -Combined with other wound No -Current Size (cm) - Length 0.1 -Current Size (cm) - Width 0.1 -Current Size (cm) - Depth 0.1 -Total Square Cm 0.01 -Tunneling No -Undermining/Tunneling No -Circular Undermining No -Exudate Amt Medium -Exudate Type Serosanguineous -Wound Margin Distinct, Outline Attached -Granulation Amt Medium (34-66%) -Necrosis Amt Medium (34-66%) -Necrotic Tissue Type Adherent Slough -Structure Exposed N/A -Texture (Ritika-wound Skin Appearance) Assessed, Scarring -Moisture (Ritika-wound Skin Appearance) Assessed -Color (Ritika-wound Skin Appearance) Assessed -Temperature (Ritika-wound Skin No Abnormality Appearance) (Pt Warm) -Tenderness on Palpation (Ritika-wound No Skin Appearance) -Ulcer Cleansing Wound Cleanser -Foul Odor after Cleansing No -Anesthetic Used 5% Lidocaine Gel WC - Nurse 2 - General Ulcer CM Notes Start: 12/09/23 10:34 Freq: Status: Active Protocol: Activity Type Activity Date Activity User E-sign Co-sign Detail Recorded Client Recorded Date Recorded By Document 12/09/23 11:24 [id number] 12/09/23 11:28 GM 12/09/23 11:24 Wound Center Nurse 2 #2- CERVICAL INFERIOR WOUND (SURGICAL) -Time 10:45 -Correct Patient Yes -Correct Side, Site, Position Yes -Correct Procedure Yes -Procedure Performed Yes -Type of Procedure Debridement -Clinical Debridement Subcutaneous -Tissue Removed Subcutaneous -Post Debridement (cm) - Length 0.3 -Post Debridement (cm) - Width 0.6 -Post Debridement (cm) - Depth 2.6 -Total Square (Post) (cm) 0.18 -Area of Debridement (cm) - Length 0.3 -Area of Debridement (cm) - Width 0.6 -Total Square (Area) (cm) 0.18 -Tunneling No -Undermining/Tunneling No -Circular Undermining No -Wound/Ulcer Outcome Not Healed -Ulcer Cleansing Rinsed/ Irrigated with Saline -Foul Odor after Cleansing No -Bioengineered Tissue No -Bleeding Controlled with Pressure -Treatment Response Procedure Tolerated Well -Debridement - Subq, 1st 20sq cm Yes #1- SUPERIOR CERIVICAL SPINE (SURGICAL) -Time 10:45 -Correct Patient Yes -Correct Side, Site, Position Yes -Correct Procedure Yes -Procedure Performed Yes -Type of Procedure Debridement -Clinical Debridement Subcutaneous -Tissue Removed Subcutaneous -Post Debridement (cm) - Length 1 -Post Debridement (cm) - Width 0.5 -Post Debridement (cm) - Depth 2.2 -Total Square (Post) (cm) 0.5 -Area of Debridement (cm) - Length 1 -Area of Debridement (cm) - Width 0.5 -Total Square (Area) (cm) 0.5 -Tunneling No -Undermining/Tunneling No -Circular Undermining No -Wound/Ulcer Outcome Not Healed -Ulcer Cleansing Rinsed/ Irrigated with Saline -Foul Odor after Cleansing No -Bioengineered Tissue No -Bleeding Controlled with Pressure -Treatment Response Procedure Tolerated Well -Debridement - Subq, 1st 20sq cm No Pain Scale: 0-10 Numeric Is Patient Pain Free? Yes WC - Nurse 3 - General Ulcer D/C NN Start: 12/09/23 10:34 Freq: Status: Active Protocol: Activity Type Activity Date Activity User E-sign Co-sign Detail Recorded Client Recorded Date Recorded By Document 12/09/23 11:11 RB Desktop 12/09/23 11:12 RB 12/09/23 11:11 Wound Care Center Nurse 3 #2- CERVICAL INFERIOR WOUND (SURGICAL) -Ulcer Cleansing Wound Cleanser -Primary Dressing Applied Aquacel Extra, Mepilex Border -Aquacel Extra 1 -Mepilex Border 1 #1- SUPERIOR CERIVICAL SPINE (SURGICAL) -Ulcer Cleansing Wound Cleanser -Other Dressing aquacel extra Treatment Response Procedure Tolerated Well Pain Scale: 0-10 Numeric Is Patient Pain Free? Yes WC - Visit Discharge Discharge Condition Stable Ambulatory Status Wheelchair Medication Reconcilliation completed & No provided to patient/care provider Clinical Summary of Care Provided Yes Additional Wound Wound debrided: Upper back (inferior Cervical) Type of Debridement: Excisional debridement Anesthesia Used: 5% Lidocaine Gel Depth: Down to and including healthy tissue and in the subcutaneous layer Percentage of wound debrided: 100 Instrument Used: 3mm curette Tissue Removed: Slough and devitalized tissue Severity: Fat Layer Exposed Amount of bleeding with debridement: Mild Bleeding Controlled with: Pressure Patient tolerated procedure: Patient tolerated procedure well Assessment/Plan Assessment/Plan (1) Non-healing surgical wound: CODE(S): T81.89XA - Other complications of procedures, not elsewhere classified, initial encounter QUALIFIERS: Encounter type: initial encounter Qualified Code(s): T81.89XA - Other complications of procedures, not elsewhere classified, initial encounter (2) Multiple myeloma: CODE(S): C90.00 - Multiple myeloma not having achieved remission (3) History of radiation therapy: CODE(S): Z92.3 - Personal history of irradiation (4) Paraplegia: CODE(S): G82.20 - Paraplegia, unspecified PLAN: Plan Debridement done as documented above, procedure was well-tolerated. As above, no significant drainage or purulence noted on exam. There is however an increase in depth. Cultures taken, will review. Scheduled for HBO consult next week, we now have availability at this facility. Continue Aquacel extra, change daily to twice daily depending on drainage. Continue Ariel twice daily. Vitamin C, D and zinc also recommended, he voiced understanding. His questions were answered and he was advised to let us know if he has any further questions or concerns. HBO consult and nurse visit next week. Follow-up with me in 3 weeks. This note was generated with [employer] software. It may contain incorrect words, spelling, and punctuation that were not noted in checking the note before signing.
[2023-12-15 13:22] VITALS: BP 99/52; PULSE 54; RESP 18; TEMP 36.7; BMI 27.4
--- NOTE | 2023-12-15 14:44 | WC ---
HBO video shown to patient
--- NOTE | 2023-12-15 17:16 | PCM.WC.PN ---
History of Present Illness Date of Service: 12/15/23 Chief Complaint: Non healing ulcer posterior neck History of Wound: Mr. Barron is a 68-year-old who was referred to this facility due to nonhealing ulcer posterior neck. Had surgery in October due to multiple myeloma. Surgery was uneventful with most of the surgical site healed but 2 areas which have not healed. Currently resides in an assisted living facility. Wound care - Silver dressings daily. Still follows up closely with oncology and is on monthly chemotherapy regimen and dexamethasone. He also had radiation therapy to the area. Wound culture from 12/09/23 was negative. Prealbumin from 08/13/23 was 19.8. Encouraged nutritional supplementation with protein to help the healing process. Today he denies fever. His appetite is ok. Progress of Wound: Minimal improvement. The ulcers track down to the bone. Objective Data Objective Data Vital Signs: Vital Signs Temp Pulse Resp BP 98.1 F 54 L 18 99/52 L 12/15/23 13:22 12/15/23 13:22 12/15/23 13:22 12/15/23 13:22 Weight: 165 lb Body Mass Index (BMI) 27.4 Prealbumin from 08/13/23 was 19.8. Encourage nutritional supplementation with protein to help the healing process. Lab / Micro Data Attestation: I reviewed the patient's lab results. Micro: Microbiology 12/09/23 13:50 Wound Abcess - Cervical Gram Stain - Final 12/09/23 13:50 Wound Abcess - Cervical Wound Culture - Final No growth aerobically. 12/09/23 13:50 Wound Abcess - Cervical Anaerobic Culture - Final No anaerobic bacteria isolated. Charges/Coding Procedures Integumentary [id number]: [id number] Marley musc/fascia 20 sq cm/< (ICD-10 - L98.495, T66.xxxS, L59.8, C90.00, G82.20, Z86.14 ) Debridement Note Debridement Note Wound debrided: #1 Posterior neck, superior Laterality: Not Applicable Wound Grade/Stage: 3. Type of Debridement: Excisional debridement Anesthesia Used: 5% Lidocaine Gel Depth: Down to and including healthy tissue, in the subcutaneous layer, to muscle and to bone (bone is palpable but not debrided) Percentage of wound debrided: 100 Instrument Used: 3mm curette Tissue Removed: Subcutaneous tissue, muscle, senescent cells, increased bioburden Severity: Fat Layer Exposed (muscle is exposed. Bone is palpable but not debrided.) Amount of bleeding with debridement: Mild Bleeding Controlled with: Pressure and Compression and gauze Patient tolerated procedure: Patient tolerated procedure well Post-Debridement Measurements and Additional Note: Post-Debridement Measurements/Treatment - Nurse 1 - General Ulcer Assessment Start: 12/09/23 10:34 Freq: Status: Active Protocol: RAUL Activity Type Activity Date Activity User E-sign Co-sign Detail Recorded Client Recorded Date Recorded By Document 12/09/23 10:34 RB Desktop 12/09/23 10:36 RB Document 12/15/23 13:22 RB Desktop 12/15/23 13:24 RB 12/09/23 12/15/23 10:34 13:22 - Today's Visit Information Type of service Follow-up Visit Follow-up Visit (Physician/DRUM DYEING MACHINE OPERATOR (Physician/DRUM DYEING MACHINE OPERATOR ) ) Arrival Mode Ambulatory Wheelchair Transfer Assistance None None Patient Identification Verified (Name & Yes Yes ) Patient Requires Transmission-Based No No Precautions Height and Weight Body Mass Index (BMI) 27.4 27.4 BMI Classification Overweight Overweight Vital Signs Temperature (97.8 F-99.1 F) 97.4 F L 98.1 F Temperature Source Temporal Temporal Pulse Rate (60-100) 52 L 54 L Pulse Location Monitor Monitor Respiratory Rate (12-18) 18 18 Respiratory rate source Observation Observation Blood Pressure (90/60-120/80) 97/38 L 99/52 L Blood Pressure Mean (mm Hg) 57 67 Source Monitor Monitor Position Semi-Fowlers Sitting Blood Pressure Location Left Arm Right Arm History Since Last Visit- (Skip if this is Patient's initial visit) Have you changed medications since your No No last visit? Any new allergies or adverse reactions No No Had a fall/change in ADL's that may No No increase risk of falls Signs or symptoms of abuse and/or No No neglect since last visit Have you been in the hospital since your No No last visit? Has dressing in place as prescribed Yes Yes Has compression in place as prescribed No No Has offloadiing in place as prescribed No No Experienced any changes in pain level or No No management Pain Scale: 0-10 Numeric Is Patient Pain Free? Yes Yes 12/15/23 14:44 Wound Center by Aruna Coffman HBO video shown to patient Initialized on 12/15/23 14:44 - END OF NOTE WC - Nurse 1 - General Ulcer Measurement Start: 12/09/23 10:34 Freq: Status: Active Protocol: Activity Type Activity Date Activity User E-sign Co-sign Detail Recorded Client Recorded Date Recorded By Document 12/09/23 10:34 RB Desktop 12/09/23 10:36 RB Document 12/15/23 13:22 RB Desktop 12/15/23 13:24 RB 12/09/23 12/15/23 10:34 13:22 Wound Center Nurse 1 #2- CERVICAL INFERIOR WOUND (SURGICAL) -Combined with other wound No No -Current Size (cm) - Length 0.1 0.5 -Current Size (cm) - Width 0.1 0.7 -Current Size (cm) - Depth 0.1 2.7 -Total Square Cm 0.01 0.35 -Photo Taken Yes -Tunneling No No -Undermining/Tunneling No No -Circular Undermining No No -Exudate Amt Medium Medium -Exudate Type Serosanguineous Serosanguineous -Wound Margin Distinct, Thickened & Outline Rolled Under Attached -Granulation Amt Medium (34-66%) Medium (34-66%) -Granulation Quality [place] -Slough/Fibrin Yes Yes -Necrosis Amt Medium (34-66%) Small (1-33%) -Necrotic Tissue Type Adherent Slough Adherent Slough -Structure Exposed N/A N/A -Texture (Ritika-wound Skin Appearance) Assessed, Assessed, Scarring Scarring -Moisture (Ritika-wound Skin Appearance) Assessed Assessed -Color (Ritika-wound Skin Appearance) Assessed Assessed -Temperature (Ritika-wound Skin No Abnormality No Abnormality Appearance) (Pt Warm) (Pt Warm) -Tenderness on Palpation (Ritika-wound No No Skin Appearance) -Ulcer Cleansing Wound Cleanser Wound Cleanser -Foul Odor after Cleansing No No -Anesthetic Used 5% Lidocaine 5% Lidocaine Gel Gel #1- SUPERIOR CERIVICAL SPINE (SURGICAL) -Combined with other wound No No -Current Size (cm) - Length 0.1 1 -Current Size (cm) - Width 0.1 0.7 -Current Size (cm) - Depth 0.1 1.2 -Total Square Cm 0.01 0.7 -Photo Taken Yes -Tunneling No No -Undermining/Tunneling No No -Circular Undermining No No -Exudate Amt Medium Medium -Exudate Type Serosanguineous Serosanguineous -Wound Margin Distinct, Thickened & Outline Rolled Under Attached -Granulation Amt Medium (34-66%) Medium (34-66%) -Granulation Quality [place] -Slough/Fibrin Yes -Necrosis Amt Medium (34-66%) Medium (34-66%) -Necrotic Tissue Type Adherent Slough Adherent Slough -Structure Exposed N/A N/A -Texture (Ritika-wound Skin Appearance) Assessed, Assessed, Scarring Scarring -Moisture (Ritika-wound Skin Appearance) Assessed Assessed -Color (Ritika-wound Skin Appearance) Assessed Assessed -Temperature (Ritika-wound Skin No Abnormality No Abnormality Appearance) (Pt Warm) (Pt Warm) -Tenderness on Palpation (Ritika-wound No No Skin Appearance) -Ulcer Cleansing Wound Cleanser Wound Cleanser -Foul Odor after Cleansing No No -Anesthetic Used 5% Lidocaine 5% Lidocaine Gel Gel WC - Nurse 2 - General Ulcer CM Notes Start: 12/09/23 10:34 Freq: Status: Active Protocol: Activity Type Activity Date Activity User E-sign Co-sign Detail Recorded Client Recorded Date Recorded By Document 12/09/23 11:24 GM [id number] 12/09/23 11:28 GM Document 12/15/23 14:04 MW Desktop 12/15/23 14:16 MW 12/09/23 12/15/23 11:24 14:04 Wound Center Nurse 2 #2- CERVICAL INFERIOR WOUND (SURGICAL) -Time 10:45 14:05 -Correct Patient Yes Yes -Correct Side, Site, Position Yes Yes -Correct Procedure Yes Yes -Procedure Performed Yes Yes -Type of Procedure Debridement Debridement -Clinical Debridement Subcutaneous Muscle / Fascia -Tissue Removed Subcutaneous Muscle,Fascia -Post Debridement (cm) - Length 0.3 1.0 -Post Debridement (cm) - Width 0.6 0.8 -Post Debridement (cm) - Depth 2.6 2.7 -Total Square (Post) (cm) 0.18 0.80 -Area of Debridement (cm) - Length 0.3 1.0 -Area of Debridement (cm) - Width 0.6 0.8 -Total Square (Area) (cm) 0.18 0.80 -Tunneling No No -Undermining/Tunneling No No -Circular Undermining No No -Wound/Ulcer Outcome Not Healed Not Healed -Ulcer Cleansing Rinsed/ Rinsed/ Irrigated with Irrigated with Saline Saline -Foul Odor after Cleansing No No -Bioengineered Tissue No No -Bleeding Controlled with Pressure Pressure -Treatment Response Procedure Procedure Tolerated Well Tolerated Well -Offloading No -Debridement - Subq, 1st 20sq cm Yes -Debridement - Muscle / Fascia, 1st Yes 20sq cm #1- SUPERIOR CERIVICAL SPINE (SURGICAL) -Time 10:45 14:10 -Correct Patient Yes Yes -Correct Side, Site, Position Yes Yes -Correct Procedure Yes Yes -Procedure Performed Yes Yes -Type of Procedure Debridement Debridement -Clinical Debridement Subcutaneous Muscle / Fascia -Tissue Removed Subcutaneous Muscle,Fascia -Post Debridement (cm) - Length 1 0.6 -Post Debridement (cm) - Width 0.5 0.6 -Post Debridement (cm) - Depth 2.2 3.0 -Total Square (Post) (cm) 0.5 0.36 -Area of Debridement (cm) - Length 1 0.6 -Area of Debridement (cm) - Width 0.5 0.6 -Total Square (Area) (cm) 0.5 0.36 -Tunneling No No -Undermining/Tunneling No No -Circular Undermining No No -Wound/Ulcer Outcome Not Healed Not Healed -Ulcer Cleansing Rinsed/ Rinsed/ Irrigated with Irrigated with Saline Saline -Foul Odor after Cleansing No No -Bioengineered Tissue No No -Bleeding Controlled with Pressure Pressure -Treatment Response Procedure Procedure Tolerated Well Tolerated Well -Offloading No -Debridement - Subq, 1st 20sq cm No -Debridement - Muscle / Fascia, 1st No 20sq cm Pain Scale: 0-10 Numeric Is Patient Pain Free? Yes Yes - Nurse 3 - General Ulcer D/C NN Start: 12/09/23 10:34 Freq: Status: Active Protocol: Activity Type Activity Date Activity User E-sign Co-sign Detail Recorded Client Recorded Date Recorded By Document 12/09/23 11:11 RB Desktop 12/09/23 11:12 RB Document 12/15/23 14:19 MW Desktop 12/15/23 14:22 MW 12/09/23 12/15/23 11:11 14:19 Wound Care Center Nurse 3 #2- CERVICAL INFERIOR WOUND (SURGICAL) -Ulcer Cleansing Wound Cleanser Not Cleansed -Foul Odor after Cleansing No -Negative Pressure Wound Therapy N/A -Primary Dressing Applied Aquacel Extra, Aquacel Extra, Mepilex Border Mepilex Border -Aquacel Extra 1 1 -Mepilex Border 1 1 #1- SUPERIOR CERIVICAL SPINE (SURGICAL) -Ulcer Cleansing Wound Cleanser Rinsed/ Irrigated with Saline -Foul Odor after Cleansing No -Negative Pressure Wound Therapy N/A -Primary Dressing Applied Aquacel Extra, Mepilex Border -Other Dressing aquacel extra -Aquacel Extra 1 -Mepilex Border 1 Treatment Response Procedure Procedure Tolerated Well Tolerated Well Pain Scale: 0-10 Numeric Is Patient Pain Free? Yes Yes Teaching: Wound Center Dressing changes -Person Taught Patient -Teaching Method Discussion, Demonstration -Response to teaching Verbalize understanding WC - Visit Discharge Discharge Condition Stable Stable Ambulatory Status Wheelchair Wheelchair Transportation [place] Accompanied by SELF Medication Reconcilliation completed & No Yes provided to patient/care provider Clinical Summary of Care Provided Yes No Additional Wound Wound debrided: #2 Posterior neck, inferior Laterality: Not Applicable Wound Grade/Stage: 3 Type of Debridement: Excisional debridement Anesthesia Used: 5% Lidocaine Gel Depth: Down to and including healthy tissue, in the subcutaneous layer, to muscle and to bone (bone is palpable but not debrided) Percentage of wound debrided: 100 Instrument Used: 3mm curette Tissue Removed: Subcutaneous tissue, muscle, senescent cells, increased bioburden Severity: Fat Layer Exposed (muscle is exposed. 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 - 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; Y84.2 - Radiological procedure and radiotherapy as the cause of abnormal reaction of the patient, or of later complication, without mention of misadventure at the time of the procedure (4) Multiple myeloma: CODE(S): C90.00 - Multiple myeloma not having achieved remission (5) Paraplegia: CODE(S): G82.20 - Paraplegia, unspecified (6) Personal history of Methicillin resistant Staphylococcus aureus infection: CODE(S): Z86.14 - Personal history of Methicillin resistant Staphylococcus aureus infection PLAN: Plan Continue Silver dressing changes to the posterior neck ulcers. Wound culture from 12/09/23 was negative. He did have a culture from 08/26/23 that was positive for MRSA. It was treated with Doxycycline. Anticipate increased metabolic demands from the ulcers. Prealbumin from 08/13/23 was 19.8. Encourage nutritional supplementation with protein to help the healing process. He has bee taking Ariel twice daily. The ulcer tracks down to the bone. I suspect the foreign body hardware may be involved. Osteomyelitis is also a concern. Patient is getting chemotherapy indicating the cancer is still active. He is not a candidate for HBO at this time until the cancer is stable and in remission, and chemotherapy is not needed. Active cancer, history of radiation damage, presence of foreign body (hardware from his neck surgery), and probable presence of osteomyelitis are reasons the ulcer will not heal. If the patient is interested in the ulcer healing, then surgical intervention would be necessary. Initial excision of the radiated tissue would be done and sent to Pathology for analysis to rule out carcinoma. Exposed hardware may need to be removed if the neck is stable enough for that. If not a temporary halo may be needed to stabilize the neck until the wound has healed. Any positive cultures would be treated with antibiotics. Wound closure would be with a nonradiated muscle flap, (i.e., trapezius muscle), with skin grafting. Due to the complexity of the patient's medical situation, this surgical plan would need to be done at a tertiary center. His initial neck surgery was done at [facility] in [place]. Patient will think about surgery. Follow-up 2 weeks.
== END 2023-12-26 23:59 | disposition home or self-care (01) ==
LOC: WC 13:00
PROVIDERS: PCP Family Medicine; Referring Provider Family Medicine; Visit Provider Internal Medicine
DX: T81.89XA Other complications of procedures, not elsewhere classified, initial encounter (principal); C90.00 Multiple myeloma not having achieved remission; G82.20 Paraplegia, unspecified; Z92.3 Personal history of irradiation
CPT/HCPCS: 11042; 11043; 87070; 87075; 87205

== ENCOUNTER 2024-01-13 11:00 | Outpatient (RCR) | payer MEDICARE, OTHER, SELFPAY ==
[2023-12-27 00:18] VITALS: BP 99/52; PULSE 54; RESP 18; TEMP 36.7; BMI 27.4
--- NOTE | 2023-12-28 08:17 | WC ---
Received a message from Cecy regarding patient's Frustration about pain and possible infection. Kimberly had spoken to a [facility] nurse about this yesterday who had seen the patient yesterday. Patient is scheduled for 12/30/[address] Shah. Reviewed note from Dr Barboza from 12/15/23 and according to wound cultures results on 12/09/23, wound culture was negative and no antiobiotics were ordered. Attempted to speak to a Cecy at [place] but there was no answer and no options to leave a message. Called Vickie back from [facility] to let her know the concern from Cecy. I had encouraged her to send patient to the ER if there was increase pain and infection to site. According to Vickie, she saw the patient yesterday and will see him today at 9am to assess the wound. She states she doesn't feel it's that severe that he would need to report to ER but will assess today and determine the best plan for him. I encouraged Vickie to let Cecy know that I was trying to get ahold of but was unsuccessful. She verbalized understanding.
[2023-12-30 10:54] VITALS: BP 122/61; PULSE 52; RESP 18; TEMP 37; BMI 27.4
--- NOTE | 2023-12-30 12:19 | PN.PCM_ITS ---
History of Present Illness Date of Service: 12/30/23 Chief Complaint: Non healing ulcer posterior neck History of Wound: Mr. Barron is a 68-year-old who was referred to this facility due to nonhealing ulcer posterior neck. Had surgery in October due to multiple myeloma. Surgery was uneventful with most of the surgical site healed but 2 areas which have not healed. Currently resides in an assisted living facility. Wound care - Silver dressings daily. Still follows up closely with oncology and is on monthly chemotherapy regimen and dexamethasone. He also had radiation therapy to the area. Wound culture from 12/09/23 was negative. Prealbumin from 08/13/23 was 19.8. Encouraged nutritional supplementation with protein to help the healing process. Today he denies fever. His appetite is ok. Progress of Wound: Fax from his facility about a week ago reporting increased drainage described as purulent from the wound sites. Patient denies chills, pain or feeling of unwell. Objective Data Objective Data Vital Signs: Vital Signs Temp Pulse Resp BP O2 Del Method 98.6 F 52 L 18 122/61 H Room Air 12/30/23 10:54 12/30/23 10:54 12/30/23 10:54 12/30/23 10:54 12/30/23 10:54 Oxygen Delivery Method Room Air Weight: 165 lb Body Mass Index (BMI) 27.4 Physical Exam Const alert, oriented x3 and no apparent distress General Appearance: cooperative HEENT normocephalic and head/scalp atraumatic Face and Sinus: normal facial exam Eyes EOMs intact bilaterally General Eye: normal appearance of both eyes Neck full ROM General: normal visual inspection Resp normal respiratory effort Effort and Inspection: able to speak in complete sentences Skin Wounds: wounds noted Neuro oriented x3 and CN's II-XII intact bilaterally Psych mental status grossly normal, thought process normal, cooperative, affect normal and speech normal Debridement Note Debridement Note Wound debrided: Upper back (superior cervical) Type of Debridement: Excisional debridement Anesthesia Used: 5% Lidocaine Gel Depth: Down to and including healthy tissue and in the subcutaneous layer Percentage of wound debrided: 100 Instrument Used: 3mm curette Tissue Removed: Slough and devitalized tissue Severity: Fat Layer Exposed Bleeding Controlled with: Pressure and Compression and gauze Patient tolerated procedure: Patient tolerated procedure well Post-Debridement Measurements and Additional Note: Post-Debridement Measurements/Treatment WC - Nurse 1 - General Ulcer Assessment Start: 12/30/23 10:54 Freq: Status: Active Protocol: RAUL Activity Type Activity Date Activity User E-sign Co-sign Detail Recorded Client Recorded Date Recorded By Document 12/30/23 10:54 [employer] 12/30/23 11:07 12/30/23 10:54 - Today's Visit Information Type of service Follow-up Visit (Physician/HEARING SPECIALIST ) Arrival Mode Wheelchair Transfer Assistance None Patient Identification Verified (Name & Yes ) Patient Requires Transmission-Based No Precautions Height and Weight Body Mass Index (BMI) 27.4 BMI Classification Overweight Vital Signs Temperature (97.8 F-99.1 F) 98.6 F Temperature Source Temporal Pulse Rate (60-100) 52 L Pulse Location Monitor Respiratory Rate (12-18) 18 Respiratory rate source Observation Oxygen Delivery Method Room Air Blood Pressure (90/60-120/80) 122/61 H Blood Pressure Mean (mm Hg) 81 Source Monitor Position Sitting Blood Pressure Location Right Arm History Since Last Visit- (Skip if this is Patient's initial visit) Have you changed medications since your No last visit? Any new allergies or adverse reactions No Had a fall/change in ADL's that may No increase risk of falls Signs or symptoms of abuse and/or No neglect since last visit Have you been in the hospital since your No last visit? Has dressing in place as prescribed Yes Has compression in place as prescribed N/A Has offloadiing in place as prescribed N/A Experienced any changes in pain level or No management Pain Scale: 0-10 Numeric Is Patient Pain Free? No thoracis/cervical -Intensity 2 -Duration (hours) Chronic -Pain Behavior No Change in Behavior -Alleviating Factors/Interventions Medication,Will continue to monitor - Nurse 1 - General Ulcer Measurement Start: 12/30/23 10:54 Freq: Status: Active Protocol: Activity Type Activity Date Activity User E-sign Co-sign Detail Recorded Client Recorded Date Recorded By Document 12/30/23 10:54 imbookin ([place]) 12/30/23 11:07 12/30/23 10:54 Wound Center Nurse 1 #2- CERVICAL INFERIOR WOUND (SURGICAL) -Current Size (cm) - Depth 1 -Photo Taken No -Epithelialization Large 67-100% -Tunneling No -Undermining/Tunneling No -Circular Undermining No -Exudate Amt Medium -Exudate Type Purulent -Wound Margin Distinct, Outline Attached -Texture (Ritika-wound Skin Appearance) Assessed -Moisture (Ritika-wound Skin Appearance) Assessed -Color (Ritika-wound Skin Appearance) Assessed -Temperature (Ritika-wound Skin No Abnormality Appearance) (Pt Warm) -Tenderness on Palpation (Ritika-wound Yes Skin Appearance) -Ulcer Cleansing Rinsed/ Irrigated with Saline -Foul Odor after Cleansing No -Anesthetic Used 5% Lidocaine Gel #1- SUPERIOR CERIVICAL SPINE (SURGICAL) -Current Size (cm) - Length 0.5 -Current Size (cm) - Width 0.5 -Current Size (cm) - Depth 1 -Total Square Cm 0.25 -Photo Taken No -Tunneling Yes -Tunneling Position (O'clock) 2 -Tunneling Distance (cm) 3 -Undermining/Tunneling No -Circular Undermining No -Exudate Amt None Present -Exudate Type Purulent -Wound Margin Distinct, Outline Attached -Texture (Ritika-wound Skin Appearance) Assessed -Moisture (Ritika-wound Skin Appearance) Assessed -Color (Ritika-wound Skin Appearance) Assessed -Temperature (Ritika-wound Skin No Abnormality Appearance) (Pt Warm) -Ulcer Cleansing Rinsed/ Irrigated with Saline -Foul Odor after Cleansing No -Anesthetic Used 5% Lidocaine Gel WC - Nurse 2 - General Ulcer CM Notes Start: 12/30/23 10:54 Freq: Status: Active Protocol: Activity Type Activity Date Activity User E-sign Co-sign Detail Recorded Client Recorded Date Recorded By Document 12/30/23 11:12 GM Desktop 12/30/23 11:30 12/30/23 11:12 Wound Center Nurse 2 #2- CERVICAL INFERIOR WOUND (SURGICAL) -Time 11:13 -Correct Patient Yes -Correct Side, Site, Position Yes -Correct Procedure Yes -Procedure Performed Yes -Type of Procedure Debridement -Clinical Debridement Subcutaneous -Tissue Removed Subcutaneous -Post Debridement (cm) - Length 0.6 -Post Debridement (cm) - Width 0.6 -Post Debridement (cm) - Depth 2.8 -Total Square (Post) (cm) 0.36 -Area of Debridement (cm) - Length 0.6 -Area of Debridement (cm) - Width 0.6 -Total Square (Area) (cm) 0.36 -Tunneling No -Undermining/Tunneling No -Circular Undermining No -Wound/Ulcer Outcome Not Healed -Ulcer Cleansing Rinsed/ Irrigated with Saline -Foul Odor after Cleansing No -Bioengineered Tissue No -Bleeding Controlled with Pressure -Treatment Response Procedure Tolerated Well -Debridement - Subq, 1st 20sq cm Yes #1- SUPERIOR CERIVICAL SPINE (SURGICAL) -Time 11:13 -Correct Patient Yes -Correct Side, Site, Position Yes -Correct Procedure Yes -Procedure Performed Yes -Type of Procedure Debridement -Clinical Debridement Subcutaneous -Tissue Removed Subcutaneous -Post Debridement (cm) - Length 0.5 -Post Debridement (cm) - Width 0.3 -Post Debridement (cm) - Depth 2.5 -Total Square (Post) (cm) 0.15 -Area of Debridement (cm) - Length 0.5 -Area of Debridement (cm) - Width 0.3 -Total Square (Area) (cm) 0.15 -Tunneling No -Undermining/Tunneling No -Circular Undermining No -Wound/Ulcer Outcome Not Healed -Ulcer Cleansing Rinsed/ Irrigated with Saline -Foul Odor after Cleansing No -Bioengineered Tissue No -Bleeding Controlled with Pressure -Treatment Response Procedure Tolerated Well -Debridement - Subq, 1st 20sq cm No Pain Scale: 0-10 Numeric Is Patient Pain Free? Yes - Nurse 3 - General Ulcer D/C NN Start: 12/30/23 10:54 Freq: Status: Active Protocol: Activity Type Activity Date Activity User E-sign Co-sign Detail Recorded Client Recorded Date Recorded By Document 12/30/23 11:48 KW Desktop 12/30/23 11:49 KW 12/30/23 11:48 Wound Care Center Nurse 3 #2- CERVICAL INFERIOR WOUND (SURGICAL) -Primary Dressing Applied Aquacel AG 4x4, Mepilex Border -Aquacel AG 4x4 1 -Mepilex Border 1 #1- SUPERIOR CERIVICAL SPINE (SURGICAL) -Ulcer Cleansing Rinsed/ Irrigated with Saline Pain Scale: 0-10 Numeric Is Patient Pain Free? Yes - Visit Discharge Ambulatory Status Wheelchair Medication Reconcilliation completed & No provided to patient/care provider Clinical Summary of Care Provided Yes Additional Wound Wound debrided: Upper back (inferior Cervical) Type of Debridement: Excisional debridement Anesthesia Used: 5% Lidocaine Gel Depth: Down to and including healthy tissue and in the subcutaneous layer Percentage of wound debrided: 100 Instrument Used: 3mm curette Tissue Removed: Slough and devitalized tissue Severity: Fat Layer Exposed Amount of bleeding with debridement: Mild Bleeding Controlled with: Pressure Patient tolerated procedure: Patient tolerated procedure well Assessment/Plan Assessment/Plan (1) Non-healing surgical wound: CODE(S): T81.89XA - Other complications of procedures, not elsewhere classified, initial encounter QUALIFIERS: Encounter type: initial encounter Qualified Code(s): T81.89XA - Other complications of procedures, not elsewhere classified, initial encounter (2) Multiple myeloma: CODE(S): C90.00 - Multiple myeloma not having achieved remission (3) History of radiation therapy: CODE(S): Z92.3 - Personal history of irradiation (4) Paraplegia: CODE(S): G82.20 - Paraplegia, unspecified PLAN: Plan Debridement done as documented above, procedure was well-tolerated. As above, report for increased drainage from facility. Last seen here 2 weeks ago and at that time, no documentation of purulent drainage. Documentation reviewed, concern for possible hardware infection and residual cancer. Review of oncology note however states that he is currently in very good partial remission with M protein not detected. Had imaging (x-ray) months ago which did not show any concern for osteomyelitis however given chronicity and exposure there is the possibility for osteomyelitis. This again was discussed with the patient and he was advised to get in touch with his primary surgeon. I believe he would benefit from higher level imaging/reevaluation. Due to recommendation for surgical management at plastic surgery evaluation, will hold off HBO at this time until reevaluation by primary surgeon. Again, patient voiced understanding. Cultures taken due to concern for increased drainage, will review when available. For now, Aquacel Ag daily to twice daily depending on drainage. Continue protein supplements with Ariel and other chronic wound care management. His questions were answered and he was advised to let us know if he has any further questions or concerns. Follow-up in 2 weeks or sooner if needed. This note was generated with [employer] dictation software. It may contain incorrect words, spelling, and punctuation that were not noted in checking the note before signing.
--- NOTE | 2024-01-05 10:58 | WC ---
Contacted patient about culture results, Dr. Shah sent 2 antibiotics to patient's pharmacy. Asked him about contact with his surgeon as he needs imaging or biopsy to R/O Osteomylitis. Patient states that he has called and is waiting on a return call at this time.
[2024-01-13 10:35] VITALS: BP 99/51; PULSE 44; RESP 13; TEMP 35.9; BMI 27.4
--- NOTE | 2024-01-13 11:51 | PCM.WC.PN ---
History of Present Illness Date of Service: 01/13/24 Chief Complaint: Non healing ulcer posterior neck History of Wound: Mr. Barron is a 68-year-old who was referred to this facility due to nonhealing ulcer posterior neck. Had surgery in October due to multiple myeloma. Surgery was uneventful with most of the surgical site healed but 2 areas which have not healed. Currently resides in an assisted living facility. Wound care - Silver dressings daily. Still follows up closely with oncology and is on monthly chemotherapy regimen and dexamethasone. He also had radiation therapy to the area. Wound culture from 12/09/23 was negative. Prealbumin from 08/13/23 was 19.8. Encouraged nutritional supplementation with protein to help the healing process. Today he denies fever. His appetite is ok. Progress of Wound: No new concerns at this time. No significant drainage. He states that he reached out to his surgeon and plan was to reach out to this facility however, we have not heard anything. Objective Data Objective Data Vital Signs: Vital Signs Temp Pulse Resp BP O2 Del Method 96.6 F L 44 L 13 99/51 L Room Air 01/13/24 10:35 01/13/24 10:35 01/13/24 10:35 01/13/24 10:35 12/30/23 10:54 Oxygen Delivery Method Room Air Weight: 165 lb Body Mass Index (BMI) 27.4 Lab / Micro Data Micro: Microbiology 12/30/23 11:26 Wound - Back Gram Stain - Final 12/30/23 11:26 Wound - Back Wound Culture - Final Meth. resistant Staph. aureus Streptococcus agalactiae (B) Staphylococcus capitis 12/30/23 11:26 Wound - Back Anaerobic Culture - Final No anaerobic bacteria isolated. 12/30/23 11:22 Wound - Back Gram Stain - Final 12/30/23 11:22 Wound - Back Wound Culture - Final Meth. resistant Staph. aureus 12/30/23 11:22 Wound - Back Anaerobic Culture - Final No anaerobic bacteria isolated. Charges/Coding Procedures Integumentary [id number]: [id number] Marley subq tissue 20 sq cm/< Physical Exam Const alert, oriented x3 and no apparent distress General Appearance: cooperative HEENT normocephalic and head/scalp atraumatic Face and Sinus: normal facial exam Eyes EOMs intact bilaterally General Eye: normal appearance of both eyes Neck full ROM General: normal visual inspection Resp normal respiratory effort Effort and Inspection: able to speak in complete sentences Skin Wounds: wounds noted Neuro oriented x3 and CN's II-XII intact bilaterally Psych mental status grossly normal, thought process normal, cooperative, affect normal and speech normal Debridement Note Debridement Note Wound debrided: Upper back (superior cervical) Type of Debridement: Excisional debridement Anesthesia Used: 5% Lidocaine Gel Depth: Down to and including healthy tissue and in the subcutaneous layer Percentage of wound debrided: 100 Instrument Used: 3mm curette Tissue Removed: Slough and devitalized tissue Severity: Fat Layer Exposed Bleeding Controlled with: Pressure and Compression and gauze Patient tolerated procedure: Patient tolerated procedure well Post-Debridement Measurements and Additional Note: Post-Debridement Measurements/Treatment - Nurse 1 - General Ulcer Assessment Start: 12/30/23 10:54 Freq: Status: Active Protocol: [email or web address] Activity Type Activity Date Activity User E-sign Co-sign Detail Recorded Client Recorded Date Recorded By Document 12/30/23 10:54 GM Desktop 12/30/23 11:07 GM Document 01/13/24 10:35 ML Desktop 01/13/24 10:42 ML 12/30/23 01/13/24 10:54 10:35 - Today's Visit Information Type of service Follow-up Visit Follow-up Visit (Physician/SALES PROJECT COORDINATOR (Physician/SALES PROJECT COORDINATOR ) ) Arrival Mode Wheelchair Wheelchair Transfer Assistance None None Patient Identification Verified (Name & Yes Yes ) Patient Requires Transmission-Based No No Precautions Height and Weight Body Mass Index (BMI) 27.4 27.4 BMI Classification Overweight Overweight Vital Signs Temperature (97.8 F-99.1 F) 98.6 F 96.6 F L Temperature Source Temporal Temporal Pulse Rate (60-100) 52 L 44 L Pulse Location Monitor Monitor Respiratory Rate (12-18) 18 13 Respiratory rate source Observation Observation Oxygen Delivery Method Room Air Blood Pressure (90/60-120/80) 122/61 H 99/51 L Blood Pressure Mean (mm Hg) 81 67 Source Monitor Monitor Position Sitting Sitting Blood Pressure Location Right Arm Left Arm History Since Last Visit- (Skip if this is Patient's initial visit) Have you changed medications since your No No last visit? Any new allergies or adverse reactions No No Had a fall/change in ADL's that may No No increase risk of falls Signs or symptoms of abuse and/or No No neglect since last visit Have you been in the hospital since your No No last visit? Has dressing in place as prescribed Yes Yes Has compression in place as prescribed N/A N/A Has offloadiing in place as prescribed N/A N/A Experienced any changes in pain level or No No management Left Footwear Regular Shoe Right Footwear Regular Shoe Pain Scale: 0-10 Numeric Is Patient Pain Free? No Yes thoracis/cervical -Intensity 2 -Duration (hours) Chronic -Pain Behavior No Change in Behavior -Alleviating Factors/Interventions Medication,Will continue to monitor WC - Nurse 1 - General Ulcer Measurement Start: 12/30/23 10:54 Freq: Status: Active Protocol: Activity Type Activity Date Activity User E-sign Co-sign Detail Recorded Client Recorded Date Recorded By Document 12/30/23 10:54 GM Desktop 12/30/23 11:07 GM Document 01/13/24 10:35 ML Desktop 01/13/24 10:42 ML 12/30/23 01/13/24 10:54 10:35 Wound Center Nurse 1 #2- CERVICAL INFERIOR WOUND (SURGICAL) -Current Size (cm) - Length 0.8 -Current Size (cm) - Width 0.3 -Current Size (cm) - Depth 1 0.1 -Total Square Cm 0.24 -Photo Taken No No -Epithelialization Large 67-100% Medium 34-66% -Tunneling No No -Undermining/Tunneling No No -Circular Undermining No No -Exudate Amt Medium Medium -Exudate Type Purulent Serosanguineous -Wound Margin Distinct, Distinct, Outline Outline Attached Attached -Granulation Amt Medium (34-66%) -Slough/Fibrin Yes -Necrosis Amt Medium (34-66%) -Texture (Ritika-wound Skin Appearance) Assessed No Abnormality -Moisture (Ritika-wound Skin Appearance) Assessed No Abnormality -Color (Ritika-wound Skin Appearance) Assessed No Abnormality -Temperature (Ritika-wound Skin No Abnormality No Abnormality Appearance) (Pt Warm) (Pt Warm) -Tenderness on Palpation (Ritika-wound Yes No Skin Appearance) -Ulcer Cleansing Rinsed/ Rinsed/ Irrigated with Irrigated with Saline Saline -Foul Odor after Cleansing No No -Anesthetic Used 5% Lidocaine 5% Lidocaine Gel Gel #1- SUPERIOR CERIVICAL SPINE (SURGICAL) -Current Size (cm) - Length 0.5 0.8 -Current Size (cm) - Width 0.5 0.5 -Current Size (cm) - Depth 1 0.1 -Total Square Cm 0.25 0.40 -Photo Taken No -Epithelialization Medium 34-66% -Tunneling Yes -Tunneling Position (O'clock) 2 -Tunneling Distance (cm) 3 -Undermining/Tunneling No -Circular Undermining No No -Exudate Amt None Present Medium -Exudate Type Purulent Serosanguineous -Wound Margin Distinct, Distinct, Outline Outline Attached Attached -Granulation Amt Medium (34-66%) -Slough/Fibrin Yes -Necrosis Amt Medium (34-66%) -Necrotic Tissue Type Adherent Slough -Texture (Ritika-wound Skin Appearance) Assessed No Abnormality -Moisture (Ritika-wound Skin Appearance) Assessed No Abnormality -Color (Ritika-wound Skin Appearance) Assessed No Abnormality -Temperature (Ritika-wound Skin No Abnormality No Abnormality Appearance) (Pt Warm) (Pt Warm) -Tenderness on Palpation (Ritika-wound No Skin Appearance) -Ulcer Cleansing Rinsed/ Rinsed/ Irrigated with Irrigated with Saline Saline -Foul Odor after Cleansing No -Anesthetic Used 5% Lidocaine 5% Lidocaine Gel Gel WC - Nurse 2 - General Ulcer CM Notes Start: 12/30/23 10:54 Freq: Status: Active Protocol: Activity Type Activity Date Activity User E-sign Co-sign Detail Recorded Client Recorded Date Recorded By Document 12/30/23 11:12 Desktop 12/30/23 11:30 Document 01/13/24 11:07 Desktop 01/13/24 11:16 12/30/23 01/13/24 11:12 11:07 Wound Center Nurse 2 #2- CERVICAL INFERIOR WOUND (SURGICAL) -Time 11:13 11:07 -Correct Patient Yes Yes -Correct Side, Site, Position Yes Yes -Correct Procedure Yes Yes -Procedure Performed Yes Yes -Type of Procedure Debridement Debridement -Clinical Debridement Subcutaneous Subcutaneous -Tissue Removed Subcutaneous Subcutaneous -Post Debridement (cm) - Length 0.6 0.6 -Post Debridement (cm) - Width 0.6 0.8 -Post Debridement (cm) - Depth 2.8 2.3 -Total Square (Post) (cm) 0.36 0.48 -Area of Debridement (cm) - Length 0.6 0.6 -Area of Debridement (cm) - Width 0.6 0.8 -Total Square (Area) (cm) 0.36 0.48 -Tunneling No No -Undermining/Tunneling No -Circular Undermining No -Wound/Ulcer Outcome Not Healed Not Healed -Ulcer Cleansing Rinsed/ Rinsed/ Irrigated with Irrigated with Saline Saline -Foul Odor after Cleansing No No -Bioengineered Tissue No -Bleeding Controlled with Pressure Pressure -Treatment Response Procedure Procedure Tolerated Well Tolerated Well -Debridement - Subq, 1st 20sq cm Yes Yes #1- SUPERIOR CERIVICAL SPINE (SURGICAL) -Time 11:13 11:07 -Correct Patient Yes Yes -Correct Side, Site, Position Yes Yes -Correct Procedure Yes Yes -Procedure Performed Yes Yes -Type of Procedure Debridement Debridement -Clinical Debridement Subcutaneous Subcutaneous -Tissue Removed Subcutaneous Subcutaneous -Post Debridement (cm) - Length 0.5 0.7 -Post Debridement (cm) - Width 0.3 0.3 -Post Debridement (cm) - Depth 2.5 2.3 -Total Square (Post) (cm) 0.15 0.21 -Area of Debridement (cm) - Length 0.5 0.7 -Area of Debridement (cm) - Width 0.3 0.3 -Total Square (Area) (cm) 0.15 0.21 -Tunneling No No -Undermining/Tunneling No No -Circular Undermining No No -Wound/Ulcer Outcome Not Healed Not Healed -Ulcer Cleansing Rinsed/ Rinsed/ Irrigated with Irrigated with Saline Saline -Foul Odor after Cleansing No No -Bioengineered Tissue No No -Bleeding Controlled with Pressure Pressure -Treatment Response Procedure Procedure Tolerated Well Tolerated Well -Debridement - Subq, 1st 20sq cm No No Pain Scale: 0-10 Numeric Is Patient Pain Free? Yes Yes WC - Nurse 3 - General Ulcer D/C NN Start: 12/30/23 10:54 Freq: Status: Active Protocol: Activity Type Activity Date Activity User E-sign Co-sign Detail Recorded Client Recorded Date Recorded By Document 12/30/23 11:48 KW Desktop 12/30/23 11:49 KW Document 01/13/24 11:40 RB Desktop 01/13/24 11:41 RB 12/30/23 01/13/24 11:48 11:40 Wound Care Center Nurse 3 #2- CERVICAL INFERIOR WOUND (SURGICAL) -Primary Dressing Applied Aquacel AG 4x4, Aquacel AG 4x4, Mepilex Border Mepilex Border -Aquacel AG 4x4 1 1 -Mepilex Border 1 1 #1- SUPERIOR CERIVICAL SPINE (SURGICAL) -Ulcer Cleansing Rinsed/ Irrigated with Saline -Other Dressing aquacel AG / mepilex border Treatment Response Procedure Tolerated Well Pain Scale: 0-10 Numeric Is Patient Pain Free? Yes Yes WC - Visit Discharge Discharge Condition Stable Ambulatory Status Wheelchair Wheelchair Transportation NH transport Medication Reconcilliation completed & No No provided to patient/care provider Clinical Summary of Care Provided Yes Yes Additional Wound Wound debrided: Upper back (inferior Cervical) Type of Debridement: Excisional debridement Anesthesia Used: 5% Lidocaine Gel Depth: Down to and including healthy tissue and in the subcutaneous layer Percentage of wound debrided: 100 Instrument Used: 3mm curette Tissue Removed: Slough and devitalized tissue Severity: Fat Layer Exposed Amount of bleeding with debridement: Mild Bleeding Controlled with: Pressure Patient tolerated procedure: Patient tolerated procedure well Assessment/Plan Assessment/Plan (1) Non-healing surgical wound: CODE(S): T81.89XA - Other complications of procedures, not elsewhere classified, initial encounter QUALIFIERS: Encounter type: initial encounter Qualified Code(s): T81.89XA - Other complications of procedures, not elsewhere classified, initial encounter (2) Multiple myeloma: CODE(S): C90.00 - Multiple myeloma not having achieved remission (3) History of radiation therapy: CODE(S): Z92.3 - Personal history of irradiation (4) Paraplegia: CODE(S): G82.20 - Paraplegia, unspecified PLAN: Plan Debridement done as documented above, procedure was well-tolerated. No acute concerns reported at this time. He denies concerns with increased drainage or pain. No significant discharge noted on exam. Currently on antibiotics, extend for 2 more weeks. Still awaiting follow-up plans with primary surgeon, will fax records. Continue Aquacel Ag daily to twice daily depending on drainage. Continue protein supplements with Ariel and other chronic wound care management. His questions were answered and he was advised to let us know if he has any further questions or concerns. Follow-up in 2 weeks or sooner if needed. This note was generated with Dragon dictation software. It may contain incorrect words, spelling, and punctuation that were not noted in checking the note before signing.
== END 2024-01-25 23:59 | disposition home or self-care (01) ==
LOC: WC 11:00
PROVIDERS: PCP Family Medicine; Referring Provider Family Medicine; Visit Provider Internal Medicine
DX: T81.89XA Other complications of procedures, not elsewhere classified, initial encounter (principal); C90.00 Multiple myeloma not having achieved remission; G82.20 Paraplegia, unspecified; Z92.3 Personal history of irradiation
CPT/HCPCS: 11042; 87070; 87075; 87077; 87186; 87205

== ENCOUNTER → 2024-01-13 | Outpatient (REF) | payer MEDICARE, OTHER, SELFPAY ==
[2024-01-13 08:51] LABS: Hematocrit 39.3 % (40-54); Hemoglobin 12.3 g/dL (13.0-16.5); Mean Corp Hgb Conc 31.3 g/dL (32-36); Mean Corpuscular Volume 89.5 fL (80-94); Platelet Count 137 K/mm3 (150-450); RBC Distribution Width CV 16.3 % (11.6-14.6); RBC Distribution Width SD 52.7 fl (35.1-43.9); Red Blood Count 4.39 M/mm3 (4.6-6.2); White Blood Count 1.6 K/mm3 (4.4-11.0)
[2024-01-13 09:52] LABS: ALB/GLOB Ratio 1.1 RATIO (0.9-2.4); AST(SGOT) 12 U/L (15-37); Alanine Aminotransfer ALT/SGPT 16 U/L (16-61); Albumin, Serum 3.2 g/dL (3.2-5.0); Alkaline Phosphatase 57 U/L (45-117); Anion Gap 6 (5-15); BUN 13 mg/dL (7-18); BUN/Creat Ratio 14.7 RATIO (10-20); Calcium,Total 8.8 mg/dL (8.5-10.1); Chloride 104 mmol/L (98-107); Cholesterol 162 mg/dL (200); Creatinine, Serum 0.89 mg/dL (0.70-1.30); EST Glomerular Filtration Rate 91 mL/min (>60); Est Glom Filt Rate - Afr Amer 110 mL/min (>60); Globulin 2.8 g/dL (2.2-4.2); Glucose 99 mg/dL (74-106); High Density Lipoprotein 55 mg/dL; Potassium 3.2 mmol/L (3.5-5.1); Sodium Level 140 mmol/L (136-145); Thyroid Stim Hormone (TSH) 2.44 uIU/mL (0.358-3.74); Triglycerides 86 mg/dL; Very Low Density Lipoprotein 17 mg/dL (5-40)
[2024-01-13 10:05] LABS: Vitamin D,25 Hydroxy 111.6 ng/mL
== END ==
PROVIDERS: PCP Family Medicine; Visit Provider Family Medicine
DX: E55.9 Vitamin D deficiency, unspecified (principal); N13.9 Obstructive and reflux uropathy, unspecified; I10 Essential (primary) hypertension; E78.5 Hyperlipidemia, unspecified; E03.9 Hypothyroidism, unspecified
CPT/HCPCS: 36415; 80053; 80061; 82306; 84439; 84443; 85027

== ENCOUNTER 2024-02-10 10:30 | Outpatient (RCR) | payer MEDICARE, OTHER, SELFPAY ==
[2024-01-26 00:14] VITALS: BP 99/51; PULSE 44; RESP 13; TEMP 35.9; BMI 27.4
[2024-01-27 10:45] VITALS: BP 99/55; PULSE 50; RESP 16; TEMP 36.9; BMI 27.4
--- NOTE | 2024-01-27 11:59 | PCM.WC.PN ---
History of Present Illness Date of Service: 01/27/24 Chief Complaint: Non healing ulcer posterior neck History of Wound: Mr. Barron is a 68-year-old who was referred to this facility due to nonhealing ulcer posterior neck. Had surgery in October due to multiple myeloma. Surgery was uneventful with most of the surgical site healed but 2 areas which have not healed. Currently resides in an assisted living facility. Wound care - Silver dressings daily. Still follows up closely with oncology and is on monthly chemotherapy regimen and dexamethasone. He also had radiation therapy to the area. Wound culture from 12/09/23 was negative. Prealbumin from 08/13/23 was 19.8. Encouraged nutritional supplementation with protein to help the healing process. Today he denies fever. His appetite is ok. Progress of Wound: No new concerns at this time. Yet to hear from his surgeon, records have been faxed over to this office. Objective Data Objective Data Vital Signs: Vital Signs Temp Pulse Resp BP O2 Del Method 98.5 F 50 L 16 99/55 L Room Air 01/27/24 10:45 01/27/24 10:45 01/27/24 10:45 01/27/24 10:45 01/27/24 10:45 Oxygen Delivery Method Room Air Weight: 165 lb Body Mass Index (BMI) 27.4 Charges/Coding Procedures Integumentary 111xxx-113xx: [id number] Marley subq tissue 20 sq cm/< Physical Exam Const alert, oriented x3 and no apparent distress General Appearance: cooperative HEENT normocephalic and head/scalp atraumatic Face and Sinus: normal facial exam Eyes EOMs intact bilaterally General Eye: normal appearance of both eyes Neck full ROM General: normal visual inspection Resp normal respiratory effort Effort and Inspection: able to speak in complete sentences Skin Wounds: wounds noted Neuro oriented x3 and CN's II-XII intact bilaterally Psych mental status grossly normal, thought process normal, cooperative, affect normal and speech normal Debridement Note Debridement Note Wound debrided: Upper back (superior cervical) Type of Debridement: Excisional debridement Anesthesia Used: 5% Lidocaine Gel Depth: Down to and including healthy tissue and in the subcutaneous layer Percentage of wound debrided: 100 Instrument Used: 3mm curette Tissue Removed: Slough and devitalized tissue Severity: Fat Layer Exposed Bleeding Controlled with: Pressure and Compression and gauze Patient tolerated procedure: Patient tolerated procedure well Post-Debridement Measurements and Additional Note: Post-Debridement Measurements/Treatment - Nurse 1 - General Ulcer Assessment Start: 01/27/24 10:45 Freq: Status: Active Protocol: RAUL Activity Type Activity Date Activity User E-sign Co-sign Detail Recorded Client Recorded Date Recorded By Document 01/27/24 10:45 Desktop 01/27/24 10:51 01/27/24 10:45 - Today's Visit Information Type of service Follow-up Visit (Physician/VARNISH MELTER ) Arrival Mode Wheelchair Transfer Assistance None Patient Identification Verified (Name & Yes ) Height and Weight Body Mass Index (BMI) 27.4 BMI Classification Overweight Vital Signs Temperature (97.8 F-99.1 F) 98.5 F Temperature Source Temporal Pulse Rate (60-100) 50 L Pulse Location Monitor Respiratory Rate (12-18) 16 Respiratory rate source Observation Oxygen Delivery Method Room Air Blood Pressure (90/60-120/80) 99/55 L Blood Pressure Mean (mm Hg) 69 Source Monitor Position Sitting Blood Pressure Location Left Arm History Since Last Visit- (Skip if this is Patient's initial visit) Have you changed medications since your No last visit? Any new allergies or adverse reactions No Had a fall/change in ADL's that may No increase risk of falls Signs or symptoms of abuse and/or No neglect since last visit Have you been in the hospital since your No last visit? Has dressing in place as prescribed Yes Has compression in place as prescribed N/A Has offloadiing in place as prescribed N/A Experienced any changes in pain level or No management Pain Scale: 0-10 Numeric Is Patient Pain Free? Yes - Nurse 1 - General Ulcer Measurement Start: 01/27/24 10:45 Freq: Status: Active Protocol: Activity Type Activity Date Activity User E-sign Co-sign Detail Recorded Client Recorded Date Recorded By Document 01/27/24 10:45 Desktop 01/27/24 10:51 01/27/24 10:45 Wound Center Nurse 1 #2- CERVICAL INFERIOR WOUND (SURGICAL) -Combined with other wound No -Combined with (Name of Wound-Exactly 0.1 as it is documented) -Current Size (cm) - Length 0.1 -Current Size (cm) - Width 0.1 -Total Square Cm 0.01 -Photo Taken No -Epithelialization Medium 34-66% -Exudate Amt Large -Exudate Type Yellow/Green -Wound Margin Indistinct, Non -Visible -Slough/Fibrin Yes -Texture (Ritika-wound Skin Appearance) Assessed -Moisture (Ritika-wound Skin Appearance) Assessed -Color (Ritika-wound Skin Appearance) Assessed -Temperature (Ritika-wound Skin No Abnormality Appearance) (Pt Warm) -Ulcer Cleansing Rinsed/ Irrigated with Saline -Foul Odor after Cleansing No -Anesthetic Used 4% Lidocaine Solution #1- SUPERIOR CERIVICAL SPINE (SURGICAL) -Combined with (Name of Wound-Exactly 0.1 as it is documented) -Current Size (cm) - Length 0.1 -Current Size (cm) - Width 0.1 -Total Square Cm 0.01 -Photo Taken No -Epithelialization Medium 34-66% -Wound Margin Indistinct, Non -Visible -Structure Exposed N/A -Texture (Ritika-wound Skin Appearance) Assessed -Moisture (Ritika-wound Skin Appearance) Assessed -Color (Ritika-wound Skin Appearance) Assessed -Temperature (Ritika-wound Skin No Abnormality Appearance) (Pt Warm) -Tenderness on Palpation (Ritika-wound No Skin Appearance) -Ulcer Cleansing Rinsed/ Irrigated with Saline -Foul Odor after Cleansing No -Anesthetic Used 4% Lidocaine Solution WC - Nurse 2 - General Ulcer CM Notes Start: 01/27/24 10:45 Freq: Status: Active Protocol: Activity Type Activity Date Activity User E-sign Co-sign Detail Recorded Client Recorded Date Recorded By Document 01/27/24 11:08 Desktop 01/27/24 11:14 01/27/24 11:08 Wound Center Nurse 2 #2- CERVICAL INFERIOR WOUND (SURGICAL) -Time 11:08 -Correct Patient Yes -Correct Side, Site, Position Yes -Correct Procedure Yes -Procedure Performed Yes -Type of Procedure Debridement -Clinical Debridement Subcutaneous -Tissue Removed Subcutaneous -Post Debridement (cm) - Length 0.2 -Post Debridement (cm) - Width 0.7 -Post Debridement (cm) - Depth 3.0 -Total Square (Post) (cm) 0.14 -Tunneling No -Undermining/Tunneling No -Circular Undermining No -Wound/Ulcer Outcome Not Healed -Ulcer Cleansing Rinsed/ Irrigated with Saline -Foul Odor after Cleansing No -Bleeding Controlled with Pressure -Treatment Response Procedure Tolerated Well -Debridement - Subq, 1st 20sq cm Yes #1- SUPERIOR CERIVICAL SPINE (SURGICAL) -Time 11:08 -Correct Patient Yes -Correct Side, Site, Position Yes -Correct Procedure Yes -Procedure Performed Yes -Type of Procedure Debridement -Clinical Debridement Subcutaneous -Tissue Removed Subcutaneous -Post Debridement (cm) - Length 1.0 -Post Debridement (cm) - Width 0.5 -Post Debridement (cm) - Depth 2.5 -Total Square (Post) (cm) 0.50 -Tunneling No -Undermining/Tunneling No -Circular Undermining No -Wound/Ulcer Outcome Not Healed -Foul Odor after Cleansing No -Bioengineered Tissue No -Bleeding Controlled with Pressure -Treatment Response Procedure Tolerated Well -Debridement - Subq, 1st 20sq cm No Pain Scale: 0-10 Numeric Is Patient Pain Free? Yes - Nurse 3 - General Ulcer D/C NN Start: 01/27/24 10:45 Freq: Status: Active Protocol: Activity Type Activity Date Activity User E-sign Co-sign Detail Recorded Client Recorded Date Recorded By Document 01/27/24 11:29 Desktop 01/27/24 11:30 01/27/24 11:29 Wound Care Center Nurse 3 #2- CERVICAL INFERIOR WOUND (SURGICAL) -Ulcer Cleansing Rinsed/ Irrigated with Saline -Primary Dressing Applied Aquacel AG 4x4, Mepilex Border -Aquacel AG 4x4 1 -Mepilex Border 1 #1- SUPERIOR CERIVICAL SPINE (SURGICAL) -Ulcer Cleansing Wound Cleanser -Other Dressing aquacel AG packed into wounds covered with meplix Treatment Response Procedure Tolerated Well Pain Scale: 0-10 Numeric Is Patient Pain Free? Yes - Visit Discharge Discharge Condition Stable Ambulatory Status Wheelchair Transportation Private Auto Medication Reconcilliation completed & No provided to patient/care provider Clinical Summary of Care Provided Yes Additional Wound Wound debrided: Upper back (inferior Cervical) Type of Debridement: Excisional debridement Anesthesia Used: 5% Lidocaine Gel Depth: Down to and including healthy tissue and in the subcutaneous layer Percentage of wound debrided: 100 Instrument Used: 3mm curette Tissue Removed: Slough and devitalized tissue Severity: Fat Layer Exposed Amount of bleeding with debridement: Mild Bleeding Controlled with: Pressure Patient tolerated procedure: Patient tolerated procedure well Assessment/Plan Assessment/Plan (1) Non-healing surgical wound: CODE(S): T81.89XA - Other complications of procedures, not elsewhere classified, initial encounter QUALIFIERS: Encounter type: initial encounter Qualified Code(s): T81.89XA - Other complications of procedures, not elsewhere classified, initial encounter (2) Multiple myeloma: CODE(S): C90.00 - Multiple myeloma not having achieved remission (3) History of radiation therapy: CODE(S): Z92.3 - Personal history of irradiation (4) Paraplegia: CODE(S): G82.20 - Paraplegia, unspecified PLAN: Plan Debridement done as documented above, procedure was well-tolerated. No acute concerns reported at time. Worsening depth, still probes to bone. Still awaiting follow-up plans with primary surgeon, despite records been faxed. Plan is to call the office. Repeat x-ray ordered, will review. Pending communication from his primary surgeon, if x-ray is concerning we will get an MRI. For now, continue Aquacel Ag daily to twice daily depending on drainage. Continue protein supplements with Ariel and other chronic wound care management. His questions were answered and he was advised to let us know if he has any further questions or concerns. Follow-up in 2 weeks or sooner if needed. This note was generated with [employer] dictation software. It may contain incorrect words, spelling, and punctuation that were not noted in checking the note before signing.
[2024-02-10 10:40] VITALS: BP 110/57; PULSE 50; RESP 18; TEMP 36.5; BMI 27.4
--- NOTE | 2024-02-10 11:47 | PN.PCM_ITS ---
History of Present Illness Date of Service: 02/10/24 Chief Complaint: Non healing ulcer posterior neck History of Wound: Mr. Barron is a 68-year-old who was referred to this facility due to nonhealing ulcer posterior neck. Had surgery in October due to multiple myeloma. Surgery was uneventful with most of the surgical site healed but 2 areas which have not healed. Currently resides in an assisted living facility. Wound care - Silver dressings daily. Still follows up closely with oncology and is on monthly chemotherapy regimen and dexamethasone. He also had radiation therapy to the area. Wound culture from 12/09/23 was negative. Prealbumin from 08/13/23 was 19.8. Encouraged nutritional supplementation with protein to help the healing process. Today he denies fever. His appetite is ok. Progress of Wound: No new concerns at this time. He denies any significant drainage or concerns with the wound since his last visit. He states that he has not heard any thing from his surgeons office. He was advised to get his imaging done here however, he had it done at the facility that he resides and we only have the report of this which shows severe mid thoracic anterior wedge compression fracture unchanged. Per report, no aggressive osseous lesions and upper thoracic orthopedic hardware still intact Objective Data Objective Data Vital Signs: Vital Signs Temp Pulse Resp BP O2 Del Method 97.7 F L 50 L 18 110/57 L Room Air 02/10/24 10:40 02/10/24 10:40 02/10/24 10:40 02/10/24 10:40 01/27/24 10:45 Oxygen Delivery Method Room Air Weight: 165 lb Body Mass Index (BMI) 27.4 Charges/Coding Procedures Integumentary 111xxx-113xx: 38204 Marley subq tissue 20 sq cm/< Physical Exam Const alert, oriented x3 and no apparent distress General Appearance: cooperative HEENT normocephalic and head/scalp atraumatic Face and Sinus: normal facial exam Eyes EOMs intact bilaterally General Eye: normal appearance of both eyes Neck full ROM General: normal visual inspection Resp normal respiratory effort Effort and Inspection: able to speak in complete sentences Skin Wounds: wounds noted Neuro oriented x3 and CN's II-XII intact bilaterally Psych mental status grossly normal, thought process normal, cooperative, affect normal and speech normal Debridement Note Debridement Note Wound debrided: Upper back (superior/cervical) Type of Debridement: Excisional debridement Anesthesia Used: 4% Lidocaine Solution Depth: Down to and including healthy tissue and in the subcutaneous layer Percentage of wound debrided: 100 Instrument Used: 3mm curette Tissue Removed: Slough and devitalized tissue Severity: Fat Layer Exposed Amount of bleeding with debridement: Mild Bleeding Controlled with: Pressure Patient tolerated procedure: Patient tolerated procedure well Post-Debridement Measurements and Additional Note: Post-Debridement Measurements/Treatment - Nurse 1 - General Ulcer Assessment Start: 01/27/24 10:45 Freq: Status: Active Protocol: RAUL Activity Type Activity Date Activity User E-sign Co-sign Detail Recorded Client Recorded Date Recorded By Document 01/27/24 10:45 Desktop 01/27/24 10:51 GM Document 02/10/24 10:40 RB wound center 02/10/24 10:45 RB 01/27/24 02/10/24 10:45 10:40 - Today's Visit Information Type of service Follow-up Visit Follow-up Visit (Physician/SHARED SERVICES REPRESENTATIVE (Physician/SHARED SERVICES REPRESENTATIVE ) ) Arrival Mode Wheelchair Wheelchair Transfer Assistance None None Patient Identification Verified (Name & Yes Yes ) Patient Requires Transmission-Based No Precautions Height and Weight Body Mass Index (BMI) 27.4 27.4 BMI Classification Overweight Overweight Vital Signs Temperature (97.8 F-99.1 F) 98.5 F 97.7 F L Temperature Source Temporal Temporal Pulse Rate (60-100) 50 L 50 L Pulse Location Monitor Monitor Respiratory Rate (12-18) 16 18 Respiratory rate source Observation Observation Oxygen Delivery Method Room Air Blood Pressure (90/60-120/80) 99/55 L 110/57 L Blood Pressure Mean (mm Hg) 69 74 Source Monitor Monitor Position Sitting Semi-Fowlers Blood Pressure Location Left Arm Left Arm History Since Last Visit- (Skip if this is Patient's initial visit) Have you changed medications since your No No last visit? Any new allergies or adverse reactions No No Had a fall/change in ADL's that may No No increase risk of falls Signs or symptoms of abuse and/or No No neglect since last visit Have you been in the hospital since your No No last visit? Has dressing in place as prescribed Yes Yes Has compression in place as prescribed N/A No Has offloadiing in place as prescribed N/A No Experienced any changes in pain level or No No management Pain Scale: 0-10 Numeric Is Patient Pain Free? Yes Yes WC - Nurse 1 - General Ulcer Measurement Start: 01/27/24 10:45 Freq: Status: Active Protocol: Activity Type Activity Date Activity User E-sign Co-sign Detail Recorded Client Recorded Date Recorded By Document 01/27/24 10:45 GM Desktop 01/27/24 10:51 GM Document 02/10/24 10:40 RB wound center 02/10/24 10:45 RB 01/27/24 02/10/24 10:45 10:40 Wound Center Nurse 1 #2- CERVICAL INFERIOR WOUND (SURGICAL) -Combined with other wound No No -Combined with (Name of Wound-Exactly 0.1 as it is documented) -Current Size (cm) - Length 0.1 0.7 -Current Size (cm) - Width 0.1 0.6 -Current Size (cm) - Depth 0.4 -Total Square Cm 0.01 0.42 -Photo Taken No Yes -Epithelialization Medium 34-66% -Tunneling No -Undermining/Tunneling No -Circular Undermining No -Exudate Amt Large Large -Exudate Type Yellow/Green Serosanguineous -Wound Margin Indistinct, Non Thickened & -Visible Rolled Under -Granulation Amt Medium (34-66%) -Granulation Quality [place] -Slough/Fibrin Yes Yes -Necrosis Amt Medium (34-66%) -Necrotic Tissue Type Adherent Slough -Structure Exposed N/A -Texture (Ritika-wound Skin Appearance) Assessed Assessed,Rash -Moisture (Ritika-wound Skin Appearance) Assessed Assessed -Color (Ritika-wound Skin Appearance) Assessed Assessed, Erythema -Temperature (Ritika-wound Skin No Abnormality Appearance) (Pt Warm) -Tenderness on Palpation (Ritika-wound No Skin Appearance) -Ulcer Cleansing Rinsed/ Wound Cleanser Irrigated with Saline -Foul Odor after Cleansing No Yes, Due to Product Use -Anesthetic Used 4% Lidocaine 5% Lidocaine Solution Gel #1- SUPERIOR CERIVICAL SPINE (SURGICAL) -Combined with other wound No -Combined with (Name of Wound-Exactly 0.1 as it is documented) -Current Size (cm) - Length 0.1 0.7 -Current Size (cm) - Width 0.1 0.7 -Current Size (cm) - Depth 0.8 -Total Square Cm 0.01 0.49 -Photo Taken No Yes -Epithelialization Medium 34-66% -Tunneling No -Undermining/Tunneling No -Circular Undermining No -Exudate Amt Large -Exudate Type Serosanguineous -Wound Margin Indistinct, Non Thickened -Visible -Granulation Amt Medium (34-66%) -Granulation Quality [place] -Slough/Fibrin Yes -Necrosis Amt Medium (34-66%) -Necrotic Tissue Type Adherent Slough -Structure Exposed N/A N/A -Texture (Ritika-wound Skin Appearance) Assessed Assessed -Moisture (Ritika-wound Skin Appearance) Assessed Assessed -Color (Ritika-wound Skin Appearance) Assessed Erythema -Temperature (Ritika-wound Skin No Abnormality No Abnormality Appearance) (Pt Warm) (Pt Warm) -Tenderness on Palpation (Ritika-wound No No Skin Appearance) -Ulcer Cleansing Rinsed/ Wound Cleanser Irrigated with Saline -Foul Odor after Cleansing No No -Anesthetic Used 4% Lidocaine 5% Lidocaine Solution Gel WC - Nurse 2 - General Ulcer CM Notes Start: 01/27/24 10:45 Freq: Status: Active Protocol: Activity Type Activity Date Activity User E-sign Co-sign Detail Recorded Client Recorded Date Recorded By Document 01/27/24 11:08 Desktop 01/27/24 11:14 Document 02/10/24 11:03 [id number] 02/10/24 11:09 01/27/24 02/10/24 11:08 11:03 Wound Center Nurse 2 #2- CERVICAL INFERIOR WOUND (SURGICAL) -Time 11:08 11:03 -Correct Patient Yes Yes -Correct Side, Site, Position Yes Yes -Correct Procedure Yes Yes -Procedure Performed Yes Yes -Type of Procedure Debridement Debridement -Clinical Debridement Subcutaneous Subcutaneous -Tissue Removed Subcutaneous Subcutaneous -Post Debridement (cm) - Length 0.2 0.6 -Post Debridement (cm) - Width 0.7 0.8 -Post Debridement (cm) - Depth 3.0 3.7 -Total Square (Post) (cm) 0.14 0.48 -Area of Debridement (cm) - Length 0.6 -Area of Debridement (cm) - Width 0.8 -Total Square (Area) (cm) 0.48 -Tunneling No No -Undermining/Tunneling No No -Circular Undermining No No -Wound/Ulcer Outcome Not Healed Not Healed -Ulcer Cleansing Rinsed/ Rinsed/ Irrigated with Irrigated with Saline Saline -Foul Odor after Cleansing No No -Bioengineered Tissue No -Bleeding Controlled with Pressure Pressure -Treatment Response Procedure Procedure Tolerated Well Tolerated Well -Debridement - Subq, 1st 20sq cm Yes Yes #1- SUPERIOR CERIVICAL SPINE (SURGICAL) -Time 11:08 11:04 -Correct Patient Yes Yes -Correct Side, Site, Position Yes Yes -Correct Procedure Yes Yes -Procedure Performed Yes Yes -Type of Procedure Debridement Debridement -Clinical Debridement Subcutaneous Subcutaneous -Tissue Removed Subcutaneous Subcutaneous -Post Debridement (cm) - Length 1.0 0.7 -Post Debridement (cm) - Width 0.5 0.6 -Post Debridement (cm) - Depth 2.5 2.6 -Total Square (Post) (cm) 0.50 0.42 -Area of Debridement (cm) - Length 0.7 -Area of Debridement (cm) - Width 0.6 -Total Square (Area) (cm) 0.42 -Tunneling No No -Undermining/Tunneling No No -Circular Undermining No No -Wound/Ulcer Outcome Not Healed Not Healed -Ulcer Cleansing Rinsed/ Irrigated with Saline -Foul Odor after Cleansing No No -Bioengineered Tissue No No -Bleeding Controlled with Pressure -Treatment Response Procedure Tolerated Well -Debridement - Subq, 1st 20sq cm No Yes Pain Scale: 0-10 Numeric Is Patient Pain Free? Yes Yes WC - Nurse 3 - General Ulcer D/C NN Start: 01/27/24 10:45 Freq: Status: Active Protocol: Activity Type Activity Date Activity User E-sign Co-sign Detail Recorded Client Recorded Date Recorded By Document 01/27/24 11:29 Desktop 01/27/24 11:30 RB Document 02/10/24 11:17 [id number] 02/10/24 11:18 01/27/24 02/10/24 11:29 11:17 Wound Care Center Nurse 3 #2- CERVICAL INFERIOR WOUND (SURGICAL) -Ulcer Cleansing Rinsed/ Irrigated with Saline -Primary Dressing Applied Aquacel AG 4x4, Aquacel Rope, Mepilex Border Mepilex Border -Aquacel AG 4x4 1 -Aquacel Rope 1 -Mepilex Border 1 1 #1- SUPERIOR CERIVICAL SPINE (SURGICAL) -Ulcer Cleansing Wound Cleanser Rinsed/ Irrigated with Saline -Other Dressing aquacel AG packed into wounds covered with meplix Treatment Response Procedure Tolerated Well Pain Scale: 0-10 Numeric Is Patient Pain Free? Yes Yes WC - Visit Discharge Discharge Condition Stable Stable Ambulatory Status Wheelchair Wheelchair Transportation Private Auto Medication Reconcilliation completed & No No provided to patient/care provider Clinical Summary of Care Provided Yes Yes Additional Wound Wound debrided: Lower back (inferior/thoracic) Type of Debridement: Excisional debridement Anesthesia Used: 4% Lidocaine Solution Depth: Down to and including healthy tissue and in the subcutaneous layer Percentage of wound debrided: 100 Instrument Used: 3mm curette Tissue Removed: Slough and devitalized tissue Severity: Fat Layer Exposed Amount of bleeding with debridement: Mild Bleeding Controlled with: Pressure Patient tolerated procedure: Patient tolerated procedure well Assessment/Plan Assessment/Plan (1) Non-healing surgical wound: CODE(S): T81.89XA - Other complications of procedures, not elsewhere classified, initial encounter QUALIFIERS: Encounter type: initial encounter Qualified Code(s): T81.89XA - Other complications of procedures, not elsewhere classified, initial encounter (2) Multiple myeloma: CODE(S): C90.00 - Multiple myeloma not having achieved remission (3) History of radiation therapy: CODE(S): Z92.3 - Personal history of irradiation (4) Paraplegia: CODE(S): G82.20 - Paraplegia, unspecified PLAN: Plan Debridement done as documented above, procedure was well-tolerated. No acute concerns reported at time. Worsening depth and still probes to bone. X- ray done at his facility as discussed above. Thankfully, wound has remained without any significant drainage but also, has not had any progress in depth. We have been unable to have any helpful communication with his primary surgeon. Evaluation for HBO attempted and recommendation was for evaluation by his primary surgeon due to hardware exposure however, patient has been unable to get an appointment. It does not appear that we are offering much help to him in regards to his wound closure as he has hardware exposure and so this would definitely impede wound healing. Please see documentation on 12/15/23. As above, there has been no significant drainage or infection in the last couple of weeks. For now, continue Aquacel Ag daily to twice daily depending on drainage. Continue protein supplements with Ariel and other chronic wound care management. I recommend that he follow-up with his primary surgeon and pending that, no further follow-up at the wound center. His questions were answered and he was advised to let us know if he has any further questions or concerns. This note was generated with [employer] software. It may contain incorrect words, spelling, and punctuation that were not noted in checking the note before signing.
== END 2024-02-25 23:59 | disposition home or self-care (01) ==
LOC: WC 10:30
PROVIDERS: PCP Family Medicine; Referring Provider Family Medicine; Visit Provider Internal Medicine
DX: T81.89XA Other complications of procedures, not elsewhere classified, initial encounter (principal); C90.00 Multiple myeloma not having achieved remission; G82.20 Paraplegia, unspecified; L98.422 Non-pressure chronic ulcer of back with fat layer exposed; M48.54XA Collapsed vertebra, not elsewhere classified, thoracic region, initial encounter for fracture; T84.89XA Other specified complication of internal orthopedic prosthetic devices, implants and grafts, initial encounter; Z79.01 Long term (current) use of anticoagulants; Z79.890 Hormone replacement therapy; Z79.899 Other long term (current) drug therapy; Z92.3 Personal history of irradiation; Y79.2 Prosthetic and other implants, materials and accessory orthopedic devices associated with adverse incidents
CPT/HCPCS: 11042

== ENCOUNTER 2024-06-08 16:00 | Outpatient (RCR) | payer MEDICARE, OTHER, SELFPAY ==
--- NOTE | 2024-03-07 07:46 | HP.OTEVAL_ITS ---
Patient's Visit Information Visit Information Visit Information: RACHEAL BURLESON is a 68 year old M, referred to Occupational Therapy by Dr. Jenn Perez MD, with a diagnosis of lymphedema- cancer- SCI. Date of Evaluation: 03/01/24 Occupational Therapist: Cinda Camejo, XIOMARA/Crystal, CHT Subjective Subjective: This 68 year old male was seen for OT eval with dx of BUL lymphedema clinic. pt arrives in w/c. pt states both legs started swelling about a year ago- when he started his cancer drug- pt states there was a period of time when he was off is Revlimid cancer pill and swelling had gone down. pt states he can use a ww 115 steps from his room to the dinning room at [facility]. Lymphedema (Circumferential Measure) Mid-foot: right 23cm left 24cm Ankle: right 26cm left 29cm Lower calf: right 26cm left 29cm Largest calf: right 37cm left 41cm Below knee: right 38cm left 43cm Lower Limb Functional Index Lower Extremity Functional Score: 13 Goals Goal: Patient will demonstrate a 20% reduction in edema by discharge: Yes Goal: Patient will demonstrate adequate knowledge of self-massage by the end of the second week.: Yes Goal: Patient will demonstrate adequate knowledge of skin care and precautions by the end of the first week.: Yes Goal: Patient will demonstrate adequate knowledge of therapeutic exercises by discharge.: Yes Goal: Patient will select an appropriate compression garment and demonstrate adequate knowledge of correct donning technique, care and wearing schedule by discharge.: Yes Goal: Patient will voice understanding of need to replace compression garment every four to six months by discharge.: Yes Rehabilitation General Assessment: pt demo with bilateral LE edema/ lymphedema. pt demo need for skilled OT services 3-4 visits to ed. pt on AROM, use of compression garment use on bilateral LE-therapist rec'd use of velcro closure compression garments as this can be adj. and as swelling goes down possible use of thigh high compression garments due to his SCI and decrease circulation. Pt receptive to velcro closure device and knee high compression socks. Therapist ed. pt on AROM ex. to stimulate circulation and given handouts on HEP. pt demo understanding- therapist gave info on velcro closure device he was going to look into this with his sisters help. Rehabilitation Potential: Good Anticipated Interventions Anticipated Interventions: Education re Diagnosis, Education re Life-long lymphedema Management, Education re Skin Care and Precautions, Education re Self Massage Techniques, Education re Correct Donning Tech,Care&Wearing Sched Comp Garments, Caregiver Training and Home Program Visit Plan TEXT: Thank you for the opportunity to evaluate your patient. For Medicare and Medicare HMO plans, please review the plan of care and approve it. It will need to be FAXED BACK to us at [phone] for Medicare purposes. Please let me know if there are questions or concerns regarding this plan of care. Physician Signature: Date:
--- NOTE | 2024-06-08 16:34 | HP.OTDCSUM ---
Discharge Summary D/C Summary: It has been my pleasure to treat RACHEAL BURLESON under orders from Dr. Jenn Perez MD, for the diagnosis of lymphedema- cancer- SCI for a total of 3 visit(s). Please see the following information for a summary of their discharge status. Objective Objective/Function: Lymphedema (circumferential Measure) Mid foot: R 24cm L 25.5 cm Ankle: R 27 cm L 32 cm Lower Calf: R 29.5 cm L 30.5 cm Largest Calf: R 38.5 cm L 42 cm Below Knee: R 38 cm L 45 cm Goals Patient Goals: Learn how to Manage Lymphedema Goal: Patient will demonstrate a 20% reduction in edema by discharge: Yes Goal Progress: NOT MET Goal: Patient will demonstrate adequate knowledge of self-massage by the end of the second week.: Yes Goal Progress: Goal Met Goal: Patient will demonstrate adequate knowledge of skin care and precautions by the end of the first week.: Yes Goal Progress: Goal Met Goal: Patient will demonstrate adequate knowledge of therapeutic exercises by discharge.: Yes Goal Progress: Goal Met Goal: Patient will select an appropriate compression garment and demonstrate adequate knowledge of correct donning technique, care and wearing schedule by discharge.: Yes Goal Progress: Goal Met Goal: Patient will voice understanding of need to replace compression garment every four to six months by discharge.: Yes Goal Progress: Goal Met Plan Plan: discharge D/C Information Discharge Comments: training provided in LE exercise as well as lymph massage and recommendations for garment. pt has now received compression garment recommended velcro closure calf and foot piece. pt demonstrated ability to don on own with increased time. provided ed on assure to watch for skin integrity as well as wearing protective layer. ed provided to wear during the day then to have off at night to allow skin to breath. ed provided to assure replacement after approx 8-9 months pt and sister able to verbalize understanding. d/c sentence: If there are questions or concerns regarding this patient's occupational therapy, please fell free to call me at [phone]. Thank you for the referral of this patient. Sincerely, Jesi Garner
--- NOTE | 2024-06-08 16:34 | HP.OT.NRP ---
Patient Information Patient Information: RACHEAL BURLESON was seen in my office for initial evaluation on 03/01/24. The following Plan of Care was established for this patient: POC Established Plan: discharge Anticipated Interventions Anticipated Interventions: Education re Diagnosis, Education re Life-long lymphedema Management, Education re Skin Care and Precautions, Education re Self Massage Techniques, Education re Correct Donning Tech,Care&Wearing Sched Comp Garments, Caregiver Training and Home Program Last Seen Last Seen: This patient was last seen in our office 06/08/24. Pertinent comments regarding their Occupational therapy will appear below: This 68 year old male seen for dx of lymphedema. pt seen and provided with LE exercises as well as lymph massage. pt provided with recommended compression velcro closure garment. pt received compression garment and comes in for training in how to properly don. ed provided including wear of skin protective barrier, skin checks as well as gradient pressure. ed on when to re place garment. discharge at this time. pt to wear garments during day and off at night for reduction in swelling. At this point I will be discontinuing this patient from occupational therapy. I would be happy to see this patient again in the future if found appropriate by the physician. Thank you! Jesi Garner
== END 2024-06-08 19:00 | disposition home or self-care (01) ==
LOC: OT 16:00
PROVIDERS: PCP Family Medicine; Referring Provider Internal Medicine Hematology & Oncology; Visit Provider Internal Medicine Hematology & Oncology
DX: C90.00 Multiple myeloma not having achieved remission (principal)
CPT/HCPCS: 97166; 97530

== ENCOUNTER 2024-06-18 17:29 | Inpatient (IN) | payer MEDICARE, OTHER, SELFPAY ==
[2024-06-18] VITALS (13 sets, daily range): BP systolic 106–125; BP diastolic 63–102; PULSE 66–95; RESP 16–26; TEMP 36.1–39.5; O2SAT 93–97; BMI 30.7; BMI 29.3
--- NOTE | 2024-06-18 18:17 | EKG12_ITS ---
Test Reason : DYSRHYTHMIA Blood Pressure : / mmHG Vent. Rate : 083 BPM Atrial Rate : 083 BPM P-R Int : 130 ms QRS Dur : 078 ms QT Int : 340 ms P-R-T Axes : 035 -21 -06 degrees QTc Int : 399 ms Normal sinus rhythm Nonspecific ST abnormality Abnormal ECG Confirmed by Jus Edwards ([id number]), assistant production editor SHANTEL AGUILERA ([id number]) on 06/20/2024 9:32:08 AM Referred By: Confirmed By:Jus Edwards
--- NOTE | 2024-06-18 18:18 | EDS_ITS ---
HPI History of Present Illness Chief Complaint: Shortness of Breath Detail of Chief Complaint: Patient presents because of shortness of breath. He was unaware that he rosales Informant: patient Onset/Context/Timing Onset: Days Context: Gradual Onset Timing: Continuous and Waxes and wanes Quality: Cough, shortness of breath generalized weakness Location: Respiratory Current Severity: Mild Maximum Severity: Moderate Worsened by: Increased shortness of breath with activity Relieved by: Nothing Associated Symptoms Associated Symptoms: Nausea, abdominal distention Narrative Narrative: Patient is a 68-year-old male who has history of mouth myeloma on immunotherapy. He also has history of hypothyroidism, hypertension, hypercholesterolemia, DVT, anemia, paraplegia who presents because of shortness of breath. He had increased cough. His cough is nonproductive. He was unaware that he had elevated temperature. He denies headache, visual, ocular auditory symptoms. Denies rhinorrhea, congestion postnasal drainage. No sore throat. He states he has nonhealing wounds due to spine surgery cervical thoracic region. Nurse at [facility] change his dressing regularly and changes the scott that are in place. He has not been told there is any drainage. Patient denies any exposure to anyone's been ill. He does endorse nausea. He denies constipation or diarrhea. He denies blood or mucus in his stool. He has an indwelling Humphries. This was placed a while ago. Patient is noted to be on apixaban because of prior history of DVT. 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 History of radiation therapy Non-healing surgical wound Paraplegia Anemia Multiple myeloma DVT (deep venous thrombosis) Back pain Hypothyroidism Hypertension Hypercholesteremia Home Medications ?Medication ?Instructions ?Recorded ?Last Taken ?Type acetaminophen 500 mg capsule 500 mg PO Q6H PRN fever or pain 07/08/23 Unknown History acyclovir 400 mg tablet 400 mg PO Q12H 07/08/23 Unknown History amlodipine 10 mg tablet 10 mg PO DAILY 07/08/23 Unknown History ascorbic acid (vitamin C) 1,000 mg 1 g PO BID 07/08/23 Unknown History tablet cholecalciferol (vitamin D3) 125 125 mcg PO DAILY 07/08/23 Unknown History mcg (5,000 unit) capsule diphenhydramine HCl 25 mg capsule 25 mg PO ONCE PRN itching 07/08/23 Unknown History (Benadryl) gabapentin 100 mg capsule 100 mg PO TID 07/08/23 Unknown History ibuprofen 400 mg tablet 400 mg PO Q8H PRN pain 07/08/23 Unknown History magnesium oxide 250 mg PO QHS 07/08/23 Unknown History melatonin 3 mg capsule 6 mg PO HS 07/08/23 Unknown History metoprolol tartrate 50 mg tablet 50 mg PO BID 07/08/23 Unknown History omeprazole 20 mg tablet,delayed 20 mg PO DAILY 07/08/23 Unknown History release sennosides 8.6 mg-docusate sodium 1 tab-cap PO BID 07/08/23 Unknown History 50 mg tablet (Senna Plus) simethicone 80 mg chewable tablet 80 mg PO TID PRN abdominal 07/08/23 Unknown History (Gas Relief (simethicone)) distention Disability Placard #1 ea 07/12/23 Unknown Rx ferrous sulfate 325 mg (65 mg 325 mg PO DAILY 07/12/23 Unknown History iron) tablet apixaban 5 mg tablet (Eliquis) 5 mg PO BID 07/17/23 Unknown History dexamethasone 4 mg tablet 20 mg (5 x 4 mg) PO .COMPLEX #30 08/04/23 Unknown Rx tabs baclofen 5 mg tablet 5 mg PO BID 08/12/23 Unknown History benzonatate 200 mg capsule 200 mg PO TID 08/12/23 Unknown History calcium carbonate 600 mg PO BID 08/12/23 Unknown History levothyroxine 100 mcg tablet 100 mcg PO DAILY 08/12/23 Unknown History (Levo-T) magnesium hydroxide 400 mg/5 mL 30 ml PO DAILY PRN constipation 08/12/23 Unknown History oral suspension (Milk of Magnesia) polyethylene glycol 3350 17 17 g PO DAILY 08/12/23 Unknown History gram/dose oral powder (ClearLax) lenalidomide 15 mg capsule 15 mg .Route .COMPLEX #21 CAPSULES 04/04/24 Unknown Rx (Revlimid) sulfamethoxazole 800 1 tab PO DAILY 06/18/24 Unknown History mg-trimethoprim 160 mg tablet Allergy/AdvReac Type Severity Reaction Status Date / Time No Known Allergies Allergy Verified 06/18/24 17:37 Family History Mother Follicular lymphoma Father Hypertension Heart disease Brother Hypertension Other Cancer Surgical History History of tooth extraction H/O laminectomy History of cholecystectomy Social History housing: assisted living facility Smoking Status: Never smoker alcohol intake: former ROS ROS ED Constitutional Constitutional ED: Reports chills and sweats; Denies fever(s), subjective or weight loss Eyes Eyes: Denies blurry vision, change in vision or diplopia ENT ENT ED: Denies ear pain, rhinorrhea or sore throat Cardiovascular Cardiovascular: Denies chest pain, orthopnea, palpitations, paroxysmal nocturnal dyspnea or racing heartbeat Respiratory/Chest Respiratory/Chest: Reports cough, dyspnea, dyspnea on exertion, sputum and other Details: Sputum is clear. ; Denies orthopnea or paroxysmal nocturnal dyspnea Gastrointestinal Gastrointestinal: Reports constipation, nausea and other Details: Patient complains of his abdomen feeling full and bloated. ; Denies abdominal pain, melena or vomiting Genitourinary Genitourinary ED: Reports other Details: Indwelling Humphries Musculoskeletal Musculoskeletal: Denies back pain or neck pain Integumentary Denies rash Neurologic Neurologic: Reports weakness; Denies headache(s) or paresthesias Hematologic/Lymphatic Hematologic/Lymphatic: Reports systems reviewed and no addt'l complaints, except as documented Allergic/Immunologic Allergic/Immunologic ED: Denies mouth swelling or tongue swelling EXAM Physical Exam Const Vital Signs: 06/18/24 17:30 06/18/24 17:38 06/18/24 17:38 Temperature 100.2 F H 100.2 F H 100.2 F H Temperature Source Oral Oral Oral Pulse Rate 95 95 95 Respiratory Rate 16 19 H 19 H Respiratory Effort Respiratory Pattern Blood Pressure 116/102 H 116/102 H 116/102 H Blood Pressure Mean 106 106 106 Pulse Ox 94 94 95 Oxygen Delivery Method Room Air Room Air Room Air 06/18/24 17:40 06/18/24 18:35 06/18/24 18:37 Temperature 103.1 F H Temperature Source Oral Pulse Rate 67 Respiratory Rate 22 H Respiratory Effort Non-Labored Short of Breath Respiratory Pattern Normal Blood Pressure 125/69 H Blood Pressure Mean 87 Pulse Ox 94 93 Oxygen Delivery Method Room Air Room Air Room Air 06/18/24 18:40 06/18/24 19:00 06/18/24 20:00 Temperature 103.1 F H 102.9 F H 100.6 F H Temperature Source Oral Oral Oral Pulse Rate 67 79 79 Respiratory Rate 22 H 20 H 26 H Respiratory Effort Respiratory Pattern Blood Pressure 125/69 H 123/64 H 113/63 Blood Pressure Mean 87 83 79 Pulse Ox 93 94 93 Oxygen Delivery Method Room Air Room Air Room Air 06/18/24 21:00 06/18/24 21:24 Temperature 101.2 F H 101.2 F H Temperature Source Oral Pulse Rate 74 74 Respiratory Rate 20 H 20 H Respiratory Effort Respiratory Pattern Blood Pressure 112/66 113/66 Blood Pressure Mean 81 81 Pulse Ox 94 94 Oxygen Delivery Method Room Air Positive well nourished and well developed Constitutional Narrative: Patient is tachypneic. He is not using accessory muscles and there is no retractions noted. He has conversational dyspnea. General Appearance ED: well developed HEENT Reports dry mucous membranes HEENT Narrative: Head is atraumatic normocephalic. Ears normal. Nares patent. Posterior pharynx unremarkable. Mouth ED: Yes dry mucous membranes Mouth: dry mucous membranes Eyes PERRL and EOMs intact bilaterally General Eye ED: Negative for scleral icterus Neck no lymphadenopathy, supple and no JVD Neck Narrative: There is no dysphonia. There is no stridor. Trachea is midline. Chest Wall inspection of chest normal and palpation of chest normal Resp normal respiratory effort and No clear to auscultation bilaterally Auscultation: rales bilateral base Cardio regular rate, regular rhythm, S1 normal heart sound, S2 normal heart sound and no murmurs GI non-tender and no masses; Negative for non-distended or hepatosplenomegaly GI Narrative: Abdomen is firm. It is tympanitic. There is no guarding or peritoneal findings. There may be slight discomfort in the epigastric area. Negative clinical Russell sign. Inspection: abdominal distention Auscultation: hypoactive bowel sounds Back/Spine no CVA tenderness Back/Spine Narrative: Patient's dressing was taken down. He has erythema near the wounds. There are scott noted. The area is warm. It is not indurated. He states that should not be red. Extremity Negative for normal to inspection General Extremety ED: Yes edema General Extremity: edema Neuro oriented x3 Sensorium / Orientation: alert Psych mental status grossly normal Skin Skin Narrative: Upper back wounds that will not heal completely per patient. Sepsis Attestation Date exam was performed: 06/18/24 Time exam was performed: 18:11 [facility] Lab Data Attestation: I reviewed the patient's lab results. Lab results narrative: White count is normal. There is mild anemia with normal indices. Electrolyte panel is unremarkable. BUN/creatinine ratio slightly elevated. Glucose is 158 with normal CO2 anion gap. Coags reveal slight elevation of PT and PTT of 16.3 and 40 prospectively. Liver enzymes are elevated with an AST of 593, ALT of 511 and alkaline phosphatase of 179. Total bili is normal.The liver enzymes were normal June 07. Rapid antigen for COVID, RSV and influenza were negative. Labs: Laboratory Results - last 24 hr 06/18/24 06/18/24 17:46 18:25 WBC 7.1 RBC 4.28 L Hgb 12.2 L Hct 38.4 L MCV 89.7 MCH 28.5 MCHC 31.8 L RDW Std Deviation 54.6 H RDW Coeff of Hattie 16.5 H Plt Count 129 L MPV 10.9 Immature Gran % (Auto) 0.100 Neut % (Auto) 90.9 H Lymph % (Auto) 2.0 L Rooks % (Auto) 5.2 Eos % (Auto) 1.7 Baso % (Auto) 0.1 Absolute Neuts (auto) 6.4 Absolute Lymphs (auto) 0.14 L Nucleated RBC % 0 PT 16.3 H INR 1.3 APTT 40.0 H Sodium 135 L Potassium 3.9 Chloride 102 Carbon Dioxide 24.0 Anion Gap 9 BUN 26 H Creatinine 1.21 Estim Creat Clear Calc 59.75 Est GFR (MDRD) Af Amer 77 Est GFR (MDRD) Non-Af 64 BUN/Creatinine Ratio 21.5 H Glucose 158 H Lactic Acid 1.5 Calcium 8.6 Total Bilirubin 0.40 AST 593 H ALT 511 H Alkaline Phosphatase 179 H Total Protein 6.0 L Albumin 2.9 L Globulin 3.1 Albumin/Globulin Ratio 0.9 Urine Color Yellow Urine Clarity Clear Urine pH 6.0 Ur Specific [place] 1.010 Urine Protein 15 H Urine Glucose (UA) Normal Urine Ketones 5 H Urine Occult Blood 50 H Urine Nitrite Positive H Urine Bilirubin Negative Urine Urobilinogen Normal Ur Leukocyte Esterase 25 H Urine RBC 0-5 SEEN Urine WBC 5-10 SEEN Ur Squamous Epith Cells 0 SEEN Urine Bacteria RARE Urine Mucus 0 SEEN Rapid COVID, RSV and influenza was obtained since nurse informing that a week prior he was exposed to his sister who was diagnosed with COVID. Radiography Chest X-Ray - ED: 1 View and Read by ED Physician (Limited inspiratory volume. Slight rotation. Cardiac silhouette size normal. There is no significant abnormality of the lung parenchyma. There is no effusion. Hardware noted from prior fusion. There is no subcutaneous air noted.) Diagnostic Testing: Clinical Impression(s) from Imaging Studies Chest X-Ray 06/18/24 18:45 IMPRESSION: No radiographic evidence of acute cardiopulmonary disease. Electronically Signed: Rafaela Benavidez MD at 19:53 EDT Reading Location ID and State: [place] / Tel , Service support , Gallbladder Ultrasound 06/18/24 19:02 IMPRESSION: No acute findings in the right upper quadrant. Hepatic steatosis. Electronically Signed: Rafaela Benavidez MD at 20:49 EDT Reading Location ID and State: [place] Vu MD Tel , Service support , Ultrasound revealed hepatic steatosis. There is no abnormality of the gallbladder. Uncertain cause of elevated transaminases and alkaline phosphatase. Since patient wound appears infected and and there is possibility of MRSA infection will treat with Zosyn and vancomycin. Will call hospitalist for admission. Management Discussion w/another healthcare provider: Hospitalist (Discussed imaging. Suggested MRI since he has hardware in his back to minimize artifact.) Treatment and Re-Evaluation :: I was informed at 1856 the patient's temperature is now 103.1. Tylenol was ordered Discharge Plan Dx/Rx/DC Orders Clinical Impression: Other postoperative infection, Fever in adult, Hypercholesteremia, Paraplegia, Non-healing surgical wound, Personal history of Methicillin resistant Staphylococcus aureus infection, Hypertension, Multiple myeloma, Elevated liver transaminase level [facility]
[2024-06-18 18:32] LABS: Absolute Lymphocyte Count 0.14 X10^3/uL (0.83-4.51); Absolute Neutrophil Count 6.4 X10^3/uL (2.0-7.7); Basophil# 0.01 X10^3/uL; Basophil% 0.1 % (0-1); Eosinophil# 0.12 X10^3/uL; Eosinophils% 1.7 % (0-5); Hematocrit 38.4 % (40-54); Hemoglobin 12.2 g/dL (13.0-16.5); Lymphocyte # 0.14 X10^3/ul (0.83-4.51); Mean Corp Hgb Conc 31.8 g/dL (32-36); Mean Corpuscular Hgb 28.5 pg (27.0-32.0); Mean Corpuscular Volume 89.7 fL (80-94); Mean Platelet Vol. 10.9 fl (6.2-12.0); Monocyte# 0.37 X10^3/uL; Monocyte% 5.2 % (0-10); NRBC Flagged by Analyzer 0 % (0-5); Neutrophil # 6.44 X10^3/uL (2.7-7.7); Neutrophil % 90.9 % (47-70); POSITIVE DIFFERENTIAL YES; Platelet Count 129 K/mm3 (150-450); RBC Distribution Width CV 16.5 % (11.6-14.6); RBC Distribution Width SD 54.6 fl (35.1-43.9); Red Blood Count 4.28 M/mm3 (4.6-6.2); White Blood Count 7.1 K/mm3 (4.4-11.0)
[2024-06-18 18:37] LABS: Mucous, Urine 0 SEEN /hpf (<or=2+); Squamous Epithelial Cells - UA 0 SEEN /hpf (0-5)
[2024-06-18 18:40] LABS: International Normalized Ratio 1.3; Prothrombin Time (Protime)PT. 16.3 SECONDS (11.7-14.9)
--- NOTE | 2024-06-18 18:45 | RAD_ITS ---
INDICATION: Cough, fever and shortness of breath EXAMINATION/TECHNIQUE: X-RAY - XR Chest 1 View COMPARISON: FINDINGS: LINES/DEVICES: Venous port terminates in the SVC at the right atrium. LUNGS: No consolidation, edema or effusion. No pneumothorax. MEDIASTINUM AND CARDIOVASCULAR STRUCTURES: Cardiac silhouette not enlarged. Central airways and mediastinal contour are unremarkable. BONES AND SOFT TISSUES: No acute findings. Prior cervical fusion. RAD/Chest 1 View (Portable) IMPRESSION: No radiographic evidence of acute cardiopulmonary disease. Electronically Signed: Rafaela Benavidez MD at 19:53 EDT Reading Location ID and State: [id number] / Tel , Service support ,
[2024-06-18 18:48] LABS: ALB/GLOB Ratio 0.9 RATIO (0.9-2.4); AST(SGOT) 593 U/L (15-37); Alanine Aminotransfer ALT/SGPT 511 U/L (16-61); Albumin, Serum 2.9 g/dL (3.2-5.0); Alkaline Phosphatase 179 U/L (45-117); Anion Gap 9 (5-15); BUN 26 mg/dL (7-18); BUN/Creat Ratio 21.5 RATIO (10-20); Calcium,Total 8.6 mg/dL (8.5-10.1); Chloride 102 mmol/L (98-107); Creatinine, Serum 1.21 mg/dL (0.70-1.30); EST Glomerular Filtration Rate 64 mL/min (>60); Est Glom Filt Rate - Afr Amer 77 mL/min (>60); Estimated Creatinine Clearance 59.75 ml/min; Globulin 3.1 g/dL (2.2-4.2); Glucose 158 mg/dL (74-106); Potassium 3.9 mmol/L (3.5-5.1); Sodium Level 135 mmol/L (136-145)
[2024-06-18 19:02] LABS: Lactic Acid 1.5 mmol/L (0.4-1.9)
[2024-06-18] MEDS: Acetaminophen 325 MG Tablet 650 MG PO (19:02)
--- NOTE | 2024-06-18 19:02 | US_ITS ---
EXAM: US ABDOMEN LIMITED, RIGHT UPPER QUADRANT CLINICAL INDICATION: Fever, elevated enzymes, new from 06/07 TECHNIQUE: Real-time ultrasound of the right upper quadrant with image documentation. COMPARISON: No relevant prior studies available. FINDINGS: LIVER: Liver is normal in size measuring 17.8 cm. Liver is echogenic consistent with steatosis. No intrahepatic biliary ductal dilation. GALLBLADDER: Gallbladder is surgically absent. Common duct measures 7 mm in caliber, normal for a postcholecystectomy patient. COMMON BILE DUCT: Unremarkable as visualized. The proximal common bile duct is within normal limits for the patient''s age. PANCREAS: Unremarkable as visualized. No focal abnormality is demonstrated in the pancreas. No pancreatic ductal dilatation. RIGHT KIDNEY: Right kidney is normal in size and echogenicity measuring 11.9 x 5.8 x 5.2 cm. Renal cortical thickness is normal. No mass or hydronephrosis. No shadowing calculus. PLEURAL SPACE: Right pleural effusion. US/Gallbladder IMPRESSION: No acute findings in the right upper quadrant. Hepatic steatosis. Electronically Signed: Rafaela Benavidez MD at 20:49 EDT Reading Location ID and State: [id number] / Tel , Service support ,
[2024-06-18 19:06] LABS: Color, Urine Yellow (Yellow); Glucose, Dipstick Normal (Normal); Ketone-Dipstick 5 mg/dl (Negative); Leukocyte Esterase-Dipstick 25 /ul (Negative); Nitrite-Dipstick Positive (Negative); Occult Blood-Urine 50 /ul (Negative); Protein-Dipstick 15 mg/dl (Negative); Urine Bilirubin Dipstick Negative (Negative); Urine Clarity Clear (Clear); Urine Urobilinogen Normal (Normal)
[2024-06-18 19:17] LABS: Bacteria RARE /hpf (None Seen); Red Blood Cells-Urine 0-5 SEEN /hpf (0-5); White Blood Cells 5-10 SEEN /hpf (0-5)
[2024-06-18] MEDS: Piperacil/Tazobactam 4.5 GM in 0.9% Normal Saline (100mL MB+) 100 ML IV (21:14)
--- NOTE | 2024-06-18 21:37 | HP.PCM.HOS_ITS ---
HPI - General General Date of Admission: 06/18/24 Date of Service: 06/18/24 Chief Complaint: Dyspnea HPI Narrative The patient is a 68 y/o M w/ PMHx: Obesity, Chronic anemia/iron deficiency anemia, Hx VTE, HTN, HLD, Hypothyroidism, Multiple myeloma, Paraplegia secondary to osseous metastatic disease with pathological compression fractures and cord compression with an epidural tumor at T2-T7 with multiple myeloma who presents to the [facility] ED on 06/18/24 with history of dyspnea noted to be continuous, waxing and waning with occasional cough and increased fatigue and malaise with nausea as well as abdominal disc tension with decreased oral intake as a result prompting eventual ED evaluation to be cautious. Patient does report that he has sensation despite his paraplegia and reports primarily his discomfort recently has been behind his left shoulder which occasionally happens and can be intermittent, mild. Workup in the ED included initially T 100.2, heart rate 95, BP 116/102, respiratory rate 16, 94% on room air with Tmax in the ED 103.1 and most recent repeat vital signs T1 100.6 orally, heart rate 79, BP 113/63, respiratory rate 26, 93% on room air, CBC with WC 7.1, hemoglobin 12.2, MCV 89.7, platelet 129 with lymphopenia, coags with PT 16.3, PTT 40, INR 1.3, CMP with sodium 135, BUN/creatinine 26/1.21, GFR 64, glucose 158, lactic acid 1.5, hepatic profile with T. bili 0.40, AST/LT 593/511, alk phos 179, urinalysis with clear urine, protein 15, ketone 5, occult blood 50, positive nitrite, leukocyte Estrace 25 with no marked urine WBCs only noted 5-10 with rare bacteria, urine culture pending per ED, blood culture pending per ED, rapid SARS COVID/influenza/RSV PCR negative, chest x-ray with no acute cardiopulmonary findings, gallbladder ultrasound with no acute findings in the right upper quadrant with hepatic steatosis. In the ED patient ministered Tylenol 650 mg p.o. x 1 as well as IV Zosyn and IV vancomycin. 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 History of radiation therapy Non-healing surgical wound Paraplegia Anemia Multiple myeloma DVT (deep venous thrombosis) Back pain Hypothyroidism Hypertension Hypercholesteremia Home Medications ?Medication ?Instructions ?Recorded ?Last Taken ?Type acetaminophen 500 mg capsule 500 mg PO Q6H PRN fever or pain 07/08/23 Unknown History acyclovir 400 mg tablet 400 mg PO Q12H 07/08/23 Unknown History amlodipine 10 mg tablet 10 mg PO DAILY 07/08/23 Unknown History ascorbic acid (vitamin C) 1,000 mg 1 g PO BID 07/08/23 Unknown History tablet cholecalciferol (vitamin D3) 125 125 mcg PO DAILY 07/08/23 Unknown History mcg (5,000 unit) capsule diphenhydramine HCl 25 mg capsule 25 mg PO ONCE PRN itching 07/08/23 Unknown History (Benadryl) gabapentin 100 mg capsule 100 mg PO TID 07/08/23 Unknown History magnesium oxide 250 mg PO QHS 07/08/23 Unknown History melatonin 3 mg capsule 6 mg PO HS 07/08/23 Unknown History metoprolol tartrate 50 mg tablet 50 mg PO BID 07/08/23 Unknown History omeprazole 20 mg tablet,delayed 20 mg PO DAILY 07/08/23 Unknown History release sennosides 8.6 mg-docusate sodium 1 tab-cap PO BID 07/08/23 Unknown History 50 mg tablet (Senna Plus) simethicone 80 mg chewable tablet 80 mg PO TID PRN abdominal 07/08/23 Unknown History (Gas Relief (simethicone)) distention Disability Placard #1 ea 07/12/23 Unknown Rx ferrous sulfate 325 mg (65 mg 325 mg PO DAILY 07/12/23 Unknown History iron) tablet apixaban 5 mg tablet (Eliquis) 5 mg PO BID 07/17/23 Unknown History dexamethasone 4 mg tablet 20 mg (5 x 4 mg) PO .COMPLEX #30 08/04/23 Unknown Rx tabs baclofen 5 mg tablet 5 mg PO BID 08/12/23 Unknown History benzonatate 200 mg capsule 200 mg PO TID 08/12/23 Unknown History calcium carbonate 600 mg PO BID 08/12/23 Unknown History levothyroxine 100 mcg tablet 100 mcg PO DAILY 08/12/23 Unknown History (Levo-T) magnesium hydroxide 400 mg/5 mL 30 ml PO DAILY PRN constipation 08/12/23 Unknown History oral suspension (Milk of Magnesia) polyethylene glycol 3350 17 17 g PO DAILY 08/12/23 Unknown History gram/dose oral powder (ClearLax) lenalidomide 15 mg capsule 15 mg .Route .COMPLEX #21 CAPSULES 04/04/24 Unknown Rx (Revlimid) arginine 7 gram-glutamine 7 1 ea PO DAILY 06/18/24 Unknown History gram-calcium HMB 1.5 gram oral powder pack (Ariel) bisacodyl 10 mg rectal suppository 10 mg UT Q4H PRN PRN constipation 06/18/24 Unknown History (Dulcolax (bisacodyl)) sulfamethoxazole 800 1 tab PO DAILY 06/18/24 Unknown History mg-trimethoprim 160 mg tablet Allergy/AdvReac Type Severity Reaction Status Date / Time No Known Allergies Allergy Verified 06/18/24 17:37 Family History Mother Follicular lymphoma Father Hypertension Heart disease Brother Hypertension Other Cancer Surgical History (Updated 06/18/24 @ 23:[address] Azra Arias MD) History of back surgery History of tooth extraction H/O laminectomy History of cholecystectomy Social History (Updated 06/18/24 @ 23:[address] Azra Arias MD) housing: assisted living facility Smoking Status: Never smoker alcohol intake: former substance use type: does not use ROS ROS Narrative Admission Review of Systems: CONSTITUTIONAL: No weight loss, fever, chills, + weakness or fatigue. HEENT: Eyes: No visual loss, blurred vision, double vision or yellow sclerae. Ears, Nose, Throat: No hearing loss, sneezing, congestion, runny nose or sore throat. SKIN: No rash or itching, lesions, + back wounds, chronic with erythema around the wounds with scott in place, warm to touch. CARDIOVASCULAR: No chest pain, chest pressure or chest discomfort, palpitations, edema, orthopnea, syncopal events. RESPIRATORY: + Intermittent dyspnea. Cough or sputum, wheezing, hemoptysis. GASTROINTESTINAL: + Anorexia/lack of appetite, occasional nausea, mild abdominal distention sensation, Constipation. No vomiting or diarrhea, abdominal pain, melena, BRBPR. GENITOURINARY: + Chronic indwelling catheter status post compression fracture with tumor with paraplegia with chronic retention. NEUROLOGICAL: + Paraplegic, chronic indwelling Humphries catheter although patient reports sensation intact. No headache, dizziness, syncope, change in bowel or bladder control, seizure. MUSCULOSKELETAL: + muscle, back pain, joint pain or stiffness. HEMATOLOGIC: + Chronic anemia. History of easy bleeding/bruising. LYMPHATICS: No enlarged nodes. No history of splenectomy. PSYCHIATRIC: No history of depression or anxiety. ENDOCRINOLOGIC: No reports of sweating, cold or heat intolerance. No polyuria or polydipsia. ALLERGIES: No history of asthma, hives, eczema or rhinitis. Vital Signs Vital Signs Vital Signs: 06/18/24 17:30 06/18/24 17:38 06/18/24 17:38 Temperature 100.2 F H 100.2 F H 100.2 F H Temperature Source Oral Oral Oral Pulse Rate 95 95 95 Respiratory Rate 16 19 H 19 H Respiratory Effort Respiratory Pattern Blood Pressure 116/102 H 116/102 H 116/102 H Blood Pressure Mean 106 106 106 Pulse Ox 94 94 95 Oxygen Delivery Method Room Air Room Air Room Air 06/18/24 17:40 06/18/24 18:35 06/18/24 18:37 Temperature 103.1 F H Temperature Source Oral Pulse Rate 67 Respiratory Rate 22 H Respiratory Effort Non-Labored Short of Breath Respiratory Pattern Normal Blood Pressure 125/69 H Blood Pressure Mean 87 Pulse Ox 94 93 Oxygen Delivery Method Room Air Room Air Room Air 06/18/24 18:40 06/18/24 19:00 06/18/24 20:00 Temperature 103.1 F H 102.9 F H 100.6 F H Temperature Source Oral Oral Oral Pulse Rate 67 79 79 Respiratory Rate 22 H 20 H 26 H Respiratory Effort Respiratory Pattern Blood Pressure 125/69 H 123/64 H 113/63 Blood Pressure Mean 87 83 79 Pulse Ox 93 94 93 Oxygen Delivery Method Room Air Room Air Room Air 06/18/24 21:00 06/18/24 21:24 Temperature 101.2 F H 101.2 F H Temperature Source Oral Pulse Rate 74 74 Respiratory Rate 20 H 20 H Respiratory Effort Respiratory Pattern Blood Pressure 112/66 113/66 Blood Pressure Mean 81 81 Pulse Ox 94 94 Oxygen Delivery Method Room Air Weight Weight: 184 lb 4.903 oz Body Mass Index (BMI) 30.7 Physical Exam Narrative Physical Examination: General: Awake, alert, oriented x 3 and cooperative, seated upright in the ED bed, fatigued appearing but notes he feels much improved since initial ED arrival. Skin: Normal color, normal turgor, no icterus, no cyanosis except notably back wounds, chronic with erythema around the wounds with scott in place, warm to touch. HEENT: AT/NC, EOMI, PERRLA, mildly dry MM, no carotid bruits or JVD noted. Lungs: Mild diminished, greater bases, appropriate effort, no rales, ronchi or wheezing. Heart: Regular rate and rhythm; no gallop, rub audible. Abdomen: Soft, obese, NTTP, mildly distended/tympanitic, mildly hyperactive normal BS, no appreciated HSM. Extremities: No cyanosis, no clubbing, mild peripheral distal edema which she notes is chronic and unchanged. Neurological: Patient awake, alert, oriented as noted, cognitive function intact; pupils equally reactive to light and accommodation, cranial nerves grossly normal, stable paraplegia, no new focal deficits, strength moderately to severely globally decreased. Psychiatric: Affect appears fatigued, mildly flat, no acute evidence of depressive or anxiety feelings. Results Lab / Micro Data 06/18/24 17:46 06/18/24 17:46 Labs: Laboratory Results - last 24 hr 06/18/24 17:46: WBC 7.1, RBC 4.28 L, Hgb 12.2 L, Hct 38.4 L, MCV 89.7, MCH 28.5, MCHC 31.8 L, RDW Std Deviation 54.6 H, RDW Coeff of Hattie 16.5 H, Plt Count 129 L, MPV 10.9, Immature Gran % (Auto) 0.100, Neut % (Auto) 90.9 H, Lymph % (Auto) 2.0 L, Kimball % (Auto) 5.2, Eos % (Auto) 1.7, Baso % (Auto) 0.1, Absolute Neuts (auto) 6.4, Absolute Lymphs (auto) 0.14 L, Nucleated RBC % 0, PT 16.3 H, INR 1.3, APTT 40.0 H, Sodium 135 L, Potassium 3.9, Chloride 102, Carbon Dioxide 24.0, Anion Gap 9, BUN 26 H, Creatinine 1.21, Estim Creat Clear Calc 59.75, Est GFR (MDRD) Af Amer 77, Est GFR (MDRD) Non-Af 64, BUN/Creatinine Ratio 21.5 H, Glucose 158 H , Calcium 8.6, Total Bilirubin 0.40, AST 593 H, ALT 511 H, Alkaline Phosphatase 179 H, Total Protein 6.0 L, Albumin 2.9 L, Globulin 3.1, Albumin/Globulin Ratio 0.9 06/18/24 18:25: Lactic Acid 1.5, Urine Color Yellow, Urine Clarity Clear, Urine pH 6.0, Ur Specific Hope 1.010, Urine Protein 15 H, Urine Glucose (UA) Normal, Urine Ketones 5 H, Urine Occult Blood 50 H, Urine Nitrite Positive H, Urine Bilirubin Negative, Urine Urobilinogen Normal, Ur Leukocyte Esterase 25 H, Urine RBC 0-5 SEEN, Urine WBC 5-10 SEEN, Ur Squamous Epith Cells 0 SEEN, Urine Bacteria RARE, Urine Mucus 0 SEEN Micro: Microbiology 06/18/24 18:25 Mucosa - Nose SARS-CoV-2, Influenza & RSV (PCR) - Final Imaging Radiology Impression Chest X-Ray 06/18/24 18:45 IMPRESSION: No radiographic evidence of acute cardiopulmonary disease. Electronically Signed: Rafaela Benavidez MD at 19:53 EDT Reading Location ID and State: [place] Vu MD Tel , Service support , Gallbladder Ultrasound 06/18/24 19:02 IMPRESSION: No acute findings in the right upper quadrant. Hepatic steatosis. Electronically Signed: Rafaela Benavidez MD at 20:49 EDT Reading Location ID and State: [place] Vu MD Tel , Service support , Assessment & Plan Assessment/Plan (1) Other postoperative infection: PLAN: Plan The patient is a 68 y/o M w/ PMHx: Obesity, Chronic anemia/iron deficiency anemia, Hx VTE, HTN, HLD, Hypothyroidism, Multiple myeloma, Paraplegia secondary to osseous metastatic disease with pathological compression fractures and cord compression with an epidural tumor at T2-T7 with multiple myeloma who presents to the [facility] ED on 06/18/24 with history of dyspnea noted to be continuous, waxing and waning with occasional cough and increased fatigue and malaise with nausea as well as abdominal disc tension with decreased oral intake as a result prompting eventual ED evaluation to be cautious. #1. Acute on chronic infected posterior thoracic fusion and pedicle screw fixation with tumor resection surgical wounds with history of MRSA: Will admit to [facility] given stable vital signs, maintain on IV vancomycin and IV Zosyn given history of MRSA, will obtain Wound Cx, will obtain Wound MRSA PCR, will request wound RN consultation, will request plastic surgery involvement, will attempt to offload, dressings per wound care/plastic discretion, PT/OT/case management consulted for discharge planning, continue judicious hydration, trend CBC, CMP, ESR and CRP requested. #2. Acute transaminitis, unclear etiology: Gallbladder ultrasound unremarkable, admission CMP with AST/LT 593/511, alk phos 179, T. bili 0.40, unclear exact etiology, potentially related with acute infectious presentation #1, will obtain hepatitis panel to be cautious, will trend CMP and pending further enzyme trending may need to consider gastroenterology involvement. #3. Acute thrombocytopenia, possibly reactive: Admission platelets 129, baseline primarily normal, continue to trend CBC. #4. Acute hyponatremia, mild, suspect hypovolemic component: Admission sodium 135, baseline previously normal range, will continue judicious hydration and repeat CMP in AM. #5. Hyperglycemia, possibly stress response: Admission glucose 158, will obtain hemoglobin A1c to be cautious. #6. Acute renal insufficiency/elevated creatinine on CKD stage I-II per GFR trending, most recently GFR in the 80s however previous to this earlier in the year in the 100-110 thus uncertain exact staging: Admission BUN/creatinine 22/10.21, GFR 64, as noted previous baseline recently has been in the 80 range but previous to this just earlier in the year has been 100-110, continue judicious hydration given presentation repeat CMP in AM. #7. Multiple myeloma: Following with oncology Dr. 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 Encouraged continued follow-up with oncology as previously arranged. Will continue prophylactic acyclovir, hold Bactrim therapy given notable initial BSA as noted. Will hold on ordering imaging and await Plastic evaluation first. Will involve also infectious disease. #8. Paraplegia secondary to previous spinal cord compression, osseous metastatic disease with compression fractures: Patient s/p requiring eventually thoracic decompression and removal epidural tumor and posterior thoracic fusion C7-T4 with by pedicle screw fixation at [facility] with unfortunately chronic wounds, nonhealing, will request wound RN consultation, continue dressings until wound RN evaluation for further changes, will maintain on fall precautions, offload, barrier cream, PT/OT/case management consulted for discharge planning. #9. Chronic normocytic anemia/iron deficiency anemia: Admission hemoglobin 12.2, MCV 89.7, baseline hemoglobin 11-12, stable, continue to trend, continue iron supplementation. #10. Hypertension: Continue home regimen including amlodipine with hold parameters as needed, PRN hydralazine. #11. Hyperlipidemia: Per current list does not appear to be on regimen, defer to outpatient #12. Obesity: Weight loss and lifestyle changes encouraged. #13. Hypothyroidism: We will continue patient on levothyroxine regimen. #14. History of VTE: We will continue patient on Eliquis regimen. #15. GERD: Will maintain on PPI. #16. DVT prophylaxis: Continue patient home Eliquis pending further results. #17. CODE status: Patient notes that he does have a living will but not a healthcare power of [place] attorney in place but states his sister and his brother would be his medical decision makers if necessary. Discussed CODE status at length including difference between FULL code, DNR-CCA and DNR-CC status. Following discussions about the differences in these status, requested Full Code status. Advanced Care Planning Face to Face Time: 16 minutes. Charges/Coding Visit Charges Inpatient E&M: 64008 Init Hosp L3 Procedures Hospitalists Procedures: 41105 Advncd Care Plan 30 Min
[2024-06-18] MEDS: Vancomycin HCl 2,000 MG in 0.9% Normal Saline (500mL Bag) 500 ML 250 MG IV (22:03)
[2024-06-18 22:43] LABS: Magnesium 1.6 mg/dL (1.6-2.6); Phosphorus 2.5 mg/dL (2.5-4.9)
[2024-06-18 22:52] LABS: Erythrocyte Sedimentation Rate 47 mm/hr (0-20)
[2024-06-18] MEDS: Senna/Docusate Sodium 1 Tablet PO (23:57)
[2024-06-18] MEDS: Gabapentin 100 MG Capsule PO (23:57)
[2024-06-18] MEDS: MELATONIN 3 MG TABLET 6 MG PO (23:57)
[2024-06-18] MEDS: APIXABAN 5 MG TABLET PO (23:57)
[2024-06-18] MEDS: Ascorbic Acid 500 MG Tablet 1000 MG PO (23:58)
[2024-06-18] MEDS: Baclofen 10 MG Tablet 5 MG PO (23:58)
[2024-06-18] MEDS: Acyclovir 200 MG Capsule 400 MG PO (23:58)
[2024-06-19] VITALS (8 sets, daily range): BP systolic 105–119; BP diastolic 56–71; PULSE 70–82; RESP 16–18; TEMP 36.3–37.2; O2SAT 92–96; BMI 29.3
[2024-06-19] MEDS: 0.9% Normal Saline (1000mL) 1,000 ML 100 ML IV (00:09)
--- NOTE | 2024-06-19 01:16 | PCM.RX.CS ---
Consult Antibiotic Management Pharmacy has been consulted to manage selected antibiotic: Vancomycin Type of Intervention Type of Consult: New start Labs Labs: Sodium 135 mmol/L (136-145) L 06/18/24 17:46 Potassium 3.9 mmol/L (3.5-5.1) 06/18/24 17:46 Chloride 102 mmol/L (98-107) 06/18/24 17:46 Carbon Dioxide 24.0 mmol/L (21.0-32.0) 06/18/24 17:46 Anion Gap 9 (5-15) 06/18/24 17:46 BUN 26 mg/dL (7-18) H 06/18/24 17:46 Creatinine 1.21 mg/dL (0.70-1.30) 06/18/24 17:46 Est GFR (MDRD) Af Amer 77 mL/min (>60) 06/18/24 17:46 Est GFR (MDRD) Non-Af 64 mL/min (>60) 06/18/24 17:46 BUN/Creatinine Ratio 21.5 RATIO (10-20) H 06/18/24 17:46 Glucose 158 mg/dL (74-106) H 06/18/24 17:46 Microbiology Microbiology: Microbiology 06/18/24 18:25 Mucosa - Nose SARS-CoV-2, Influenza & RSV (PCR) - Final Dosing Weight Weight used for dosin.1 kg Estimated Creatinine Clearance Estimated Creatinine Clearance: 59.75 Goal Trough Goal Trough: 15-20 mcg/mL Pharmacy Plan for Drug Dosing Pharmacy Plan for Drug Dosing: Pharmacy Service will continue to monitor and adjust dosing as required. 2000MG IN ER, 1000MG Q12H TROUGH PRIOR TO 4TH DOSE Follow-Up Labs Follow-Up Labs: Trough: Vancomycin Date/Time Labs Ordered Labs to be done on [date and time ordered]: 06/20 @ 8676
[2024-06-19] MEDS: Gabapentin 100 MG Capsule PO ×3 (05:34→21:03)
[2024-06-19] MEDS: Levothyroxine 100 MCG Tablet PO (05:34)
[2024-06-19] MEDS: Piperacil/Tazobactam 3.375 GM in 0.9% Normal Saline (50mL MB+) 50 ML IV ×3 (05:34→22:16)
[2024-06-19 05:57] LABS: Absolute Lymphocyte Count 0.13 X10^3/uL (0.83-4.51); Absolute Neutrophil Count 4.9 X10^3/uL (2.0-7.7); Basophil# 0.02 X10^3/uL; Basophil% 0.4 % (0-1); Eosinophil# 0.12 X10^3/uL; Eosinophils% 2.2 % (0-5); Hematocrit 35.3 % (40-54); Hemoglobin 11.4 g/dL (13.0-16.5); Lymphocyte # 0.13 X10^3/ul (0.83-4.51); Lymphocyte % 2.4 % (19-41); Mean Corp Hgb Conc 32.3 g/dL (32-36); Mean Corpuscular Hgb 28.8 pg (27.0-32.0); Mean Corpuscular Volume 89.1 fL (80-94); Mean Platelet Vol. 10.3 fl (6.2-12.0); Monocyte# 0.36 X10^3/uL; Monocyte% 6.5 % (0-10); NRBC Flagged by Analyzer 0 % (0-5); Neutrophil # 4.88 X10^3/uL (2.7-7.7); Neutrophil % 88.1 % (47-70); POSITIVE DIFFERENTIAL YES; Platelet Count 126 K/mm3 (150-450); RBC Distribution Width CV 16.6 % (11.6-14.6); RBC Distribution Width SD 54.3 fl (35.1-43.9); Red Blood Count 3.96 M/mm3 (4.6-6.2); White Blood Count 5.5 K/mm3 (4.4-11.0)
[2024-06-19 06:51] LABS: ALB/GLOB Ratio 0.9 RATIO (0.9-2.4); AST(SGOT) 540 U/L (15-37); Alanine Aminotransfer ALT/SGPT 636 U/L (16-61); Albumin, Serum 2.6 g/dL (3.2-5.0); Alkaline Phosphatase 193 U/L (45-117); Anion Gap 7 (5-15); BUN 17 mg/dL (7-18); BUN/Creat Ratio 16.8 RATIO (10-20); Calcium,Total 8.4 mg/dL (8.5-10.1); Chloride 105 mmol/L (98-107); Creatinine, Serum 1.01 mg/dL (0.70-1.30); EST Glomerular Filtration Rate 78 mL/min (>60); Est Glom Filt Rate - Afr Amer 95 mL/min (>60); Estimated Creatinine Clearance 70.15 ml/min; Globulin 2.9 g/dL (2.2-4.2); Glucose 118 mg/dL (74-106); Protein, Total 5.5 g/dL (6.4-8.2); Sodium Level 138 mmol/L (136-145)
--- NOTE | 2024-06-19 07:57 | CON.PCM.SX_ITS ---
Assessment & Plan Assessment/Plan (1) Radiation adverse effect: (2) Open wound of tissue overlying spine: PLAN: Plan At this time I recommend advanced imaging of the upper chest neck with a CT scan with/without contrast. This will help evaluate the soft tissue surrounding the hardware as well as the integrity of the bone given chronic draining sinuses coming from the area. I also recommend consultation from a spine surgeon. Given that this is a radiated wound, any surgical intervention of the hardware or revisions should likely be covered with nonradiated tissue from another portion of the body to promote healing. I will be available for any reconstruction as needed. Plastics will follow along Recommend pressure offloading bed (ordered) Iodoform packing twice daily to the wounds HPI Consult Data Date of Consult: 06/19/24 HPI Narrative HPI Narrative: RACHEAL BURLESON, is a 68 M with a history of multiple myeloma with a pathologic compression fracture of the T-spine (T2 - T7) leading to severe lower extremity weakness (can walk but only with a walker) who underwent fusion of his cervical/thoracic spine and October 2022 followed by radiation therapy in December 2022 and adjuvant chemotherapy in the summer 2022 who was admitted last night from a local assisted living facility for a fever workup. The internal medicine consulted me regarding a thoracic wound that has been draining. Patient reports that he has had a wound ever since the spring 2022 around the time when he was receiving radiation and did not have any subsequent surgery following the fusion. His spine surgeon at [facility] does not have any further plans for the wound or the hardware per patient report. Patient has been following with the wound care center in [place] and they have been placing of wound VAC over the wound until last week. He has since been doing iodoform packing in the wounds. He has not had any recent advanced imaging. In the ED his chest x-ray was unremarkable and he is not having any shortness of breath or trouble breathing. His urinalysis was positive for nitrites (he has a Humphries), and urine cultures are pending. Today on the floor he is afebrile (albeit febrile to 103 yesterday) with stable VS. He is on Vancomycin and Zosyn. His WBC is 5.5, hemoglobin is 11.4, and his platelets are 126. He has a transaminitis that was not previously diagnosed (AST 540 and ALT 636 with INR of 1.3). Of note he was also diagnosed with bilateral lower extremity DVTs during his initial hospitalization for the pathologic compression fractures and has been on Eliquis as a home medication ever since. He follows with Dr. Perez at our hospital for his cancer care. He was last seen in April 2024 for follow-up of his multiple myeloma. He is on systemic daratumumab maintenance. He also takes acyclovir and Bactrim for prophylaxis. The recommendations from hematology was to hold anticoagulation 48 hours prior to any invasive procedure but to continue DVT prophylaxis long-term as he has malignancy induced hypercoagulability. 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 History of radiation therapy Non-healing surgical wound Paraplegia Anemia Multiple myeloma DVT (deep venous thrombosis) Back pain Hypothyroidism Hypertension Hypercholesteremia Home Medications ?Medication ?Instructions ?Recorded ?Last Taken ?Type acetaminophen 500 mg capsule 500 mg PO Q6H PRN fever or pain 07/08/23 Unknown History acyclovir 400 mg tablet 400 mg PO Q12H 07/08/23 Unknown History amlodipine 10 mg tablet 10 mg PO DAILY 07/08/23 Unknown History ascorbic acid (vitamin C) 1,000 mg 1 g PO BID 07/08/23 Unknown History tablet cholecalciferol (vitamin D3) 125 125 mcg PO DAILY 07/08/23 Unknown History mcg (5,000 unit) capsule diphenhydramine HCl 25 mg capsule 25 mg PO ONCE PRN itching 07/08/23 Unknown History (Benadryl) gabapentin 100 mg capsule 100 mg PO TID 07/08/23 Unknown History magnesium oxide 250 mg PO .noon bowel health 07/08/23 Unknown History melatonin 3 mg capsule 6 mg PO HS 07/08/23 Unknown History metoprolol tartrate 50 mg tablet 50 mg PO BID 07/08/23 Unknown History omeprazole 20 mg tablet,delayed 20 mg PO DAILY 07/08/23 Unknown History release sennosides 8.6 mg-docusate sodium 1 tab-cap PO BID 07/08/23 Unknown History 50 mg tablet (Senna Plus) simethicone 80 mg chewable tablet 80 mg PO TID PRN abdominal 07/08/23 Unknown History (Gas Relief (simethicone)) distention Disability Placard #1 ea 07/12/23 Unknown Rx ferrous sulfate 325 mg (65 mg 325 mg PO DAILY 07/12/23 Unknown History iron) tablet apixaban 5 mg tablet (Eliquis) 5 mg PO BID 07/17/23 Unknown History baclofen 5 mg tablet 5 mg PO BID 08/12/23 Unknown History benzonatate 200 mg capsule 200 mg PO TID PRN cough 08/12/23 Unknown History calcium carbonate 600 mg PO BID 08/12/23 Unknown History levothyroxine 100 mcg tablet 100 mcg PO DAILY 08/12/23 Unknown History (Levo-T) magnesium hydroxide 400 mg/5 mL 30 ml PO DAILY PRN constipation 08/12/23 Unknown History oral suspension (Milk of Magnesia) polyethylene glycol 3350 17 17 g PO DAILY 08/12/23 Unknown History gram/dose oral powder (ClearLax) lenalidomide 15 mg capsule 15 mg .Route .COMPLEX #21 CAPSULES 04/04/24 Unknown Rx (Revlimid) arginine 7 gram-glutamine 7 1 ea PO DAILY 06/18/24 Unknown History gram-calcium HMB 1.5 gram oral powder pack (Ariel) bisacodyl 10 mg rectal suppository 10 mg WI DAILY PRN PRN constipation 06/18/24 Unknown History (Dulcolax (bisacodyl)) sulfamethoxazole 800 1 tab PO Q12H antibiotic 06/18/24 Unknown History mg-trimethoprim 160 mg tablet dexamethasone 4 mg tablet 20 mg PO Q28D myeloma 06/19/24 Unknown History Allergy/AdvReac Type Severity Reaction Status Date / Time No Known Allergies Allergy Verified 06/18/24 17:37 Family History Mother Follicular lymphoma Father Hypertension Heart disease Brother Hypertension Other Cancer Surgical History History of back surgery History of tooth extraction H/O laminectomy History of cholecystectomy Social History housing: assisted living facility Smoking Status: Never smoker alcohol intake: former substance use type: does not use Physical Exam Narrative Thoracic spine Two 1 x 1 cm draining (serosanguineous fluid, no aguila purulence) sinuses/wounds in the thoracic spine region with surrounding skin with the stigmata of radiation dermatitis. No areas of fluctuance (nondraining areas). The areas are slightly tender to palpation. Const alert and oriented x3 Constitutional Narrative: Able to give excellent history Eyes EOMs intact bilaterally Chest Chest Narrative: Right upper extremity port Resp normal respiratory effort Cardio Rate: regular rate Rhythm: regular rhythm GI soft to palpation Extremity no calf tenderness Extremity Narrative: Left lower extremity with some swelling compared to the right, but no redness Neuro CN's II-XII intact bilaterally Psych mental status grossly normal Lab / Micro Data 06/19/24 05:32 06/19/24 05:32 Labs: Laboratory Results - last 24 hr 06/18/24 17:46: WBC 7.1, RBC 4.28 L, Hgb 12.2 L, Hct 38.4 L, MCV 89.7, MCH 28.5, MCHC 31.8 L, RDW Std Deviation 54.6 H, RDW Coeff of Hattie 16.5 H, Plt Count 129 L, MPV 10.9, Immature Gran % (Auto) 0.100, Neut % (Auto) 90.9 H, Lymph % (Auto) 2.0 L, [place] % (Auto) 5.2, Eos % (Auto) 1.7, Baso % (Auto) 0.1, Absolute Neuts (auto) 6.4, Absolute Lymphs (auto) 0.14 L, Nucleated RBC % 0, ESR 47 H, PT 16.3 H, INR 1.3, APTT 40.0 H, Sodium 135 L, Potassium 3.9, Chloride 102, Carbon Dioxide 24.0, Anion Gap 9, BUN 26 H, Creatinine 1.21, Estim Creat Clear Calc 59.75, Est GFR (MDRD) Af Amer 77, Est GFR (MDRD) Non-Af 64, BUN/Creatinine Ratio 21.5 H, G lucose 158 H, Calcium 8.6, Phosphorus 2.5, Magnesium 1.6, Total Bilirubin 0.40, AST 593 H, ALT 511 H, Alkaline Phosphatase 179 H, C-React Prot Ext Range 109.00 H, Total Protein 6.0 L, Albumin 2.9 L, Globulin 3.1, Albumin/Globulin Ratio 0.9 06/18/24 18:25: Lactic Acid 1.5, Urine Color Yellow, Urine Clarity Clear, Urine pH 6.0, Ur Specific [place] 1.010, Urine Protein 15 H, Urine Glucose (UA) Normal, Urine Ketones 5 H, Urine Occult Blood 50 H, Urine Nitrite Positive H, Urine Bilirubin Negative, Urine Urobilinogen Normal, Ur Leukocyte Esterase 25 H, Urine RBC 0-5 SEEN, Urine WBC 5-10 SEEN, Ur Squamous Epith Cells 0 SEEN, Urine Bacteria RARE, Urine Mucus 0 SEEN 06/19/24 05:32: WBC 5.5, RBC 3.96 L, Hgb 11.4 L, Hct 35.3 L, MCV 89.1, MCH 28.8, MCHC 32.3, RDW Std Deviation 54.3 H, RDW Coeff of Hattie 16.6 H, Plt Count 126 L, MPV 10.3, Immature Gran % (Auto) 0.400, Neut % (Auto) 88.1 H, Lymph % (Auto) 2.4 L, [place] % (Auto) 6.5, Eos % (Auto) 2.2, Baso % (Auto) 0.4, Absolute Neuts (auto) 4.9, Absolute Lymphs (auto) 0.13 L, Nucleated RBC % 0, Sodium 138, Potassium 4.0, Chloride 105, Carbon Dioxide 26.0, Anion Gap 7, BUN 17, Creatinine 1.01, Estim Creat Clear Calc 70.15, Est GFR (MDRD) Af Amer 95, Est GFR (MDRD) Non-Af 78, BUN/Creatinine Ratio 16.8, Glucose 118 H, Calcium 8.4 L, Total Bilirubin 0.90, AST 540 H, ALT 636 H, Alkaline Phosphatase 193 H, Total Protein 5.5 L, A lbumin 2.6 L, Globulin 2.9, Albumin/Globulin Ratio 0.9 Micro: Microbiology 06/19/24 00:05 Wound - Back Skin and Soft Tissue MRSA/MSSA (PCR - Final 06/18/24 18:25 Mucosa - Nose SARS-CoV-2, Influenza & RSV (PCR) - Final Imaging Radiology Impression Chest X-Ray 06/18/24 18:45 IMPRESSION: No radiographic evidence of acute cardiopulmonary disease. Electronically Signed: Rafaela Benavidez MD at 19:53 EDT Reading Location ID and State: [id number] / Tel , Service support , Gallbladder Ultrasound 06/18/24 19:02 IMPRESSION: No acute findings in the right upper quadrant. Hepatic steatosis. Electronically Signed: Rafaela Benavidez MD at 20:49 EDT Reading Location ID and State: [id number] / Tel , Service support , Charges/Coding Multi Select Codes Visit Charges Office Visit/Consults: 13494 IP Consult L5 (Reviewed extensive medical history, saw and examined the patient and evaluated a severe radiated wound, recommended advanced image and will review. )
[2024-06-19 09:13] LABS: Hemoglobin A1c 5.5 % (3.8-5.6)
--- NOTE | 2024-06-19 09:35 | WOUNDNOTE ---
wound photo: mid upper back
--- NOTE | 2024-06-19 10:17 | CT_ITS ---
STUDY: CT CERVICAL SPINE WITH CONTRAST REASON FOR EXAM: Male, 68 years old. Spinal wound. History of prior spinal surgery. Pertinent history of prior spinal surgery. RADIATION DOSAGE (If Supplied By Facility): CTDIvol = ( 23.19 ) mGy, DLP = ( 383.51 ) mGycm TECHNIQUE: High resolution transaxial imaging was performed following intravenous administration of IV 60mL Isovue-370. Sagittal and coronal images were reconstructed. Individualized dose optimization techniques were used for this CT. COMPARISON: None FINDINGS: Normal craniovertebral junction. Normal anterior atlantoaxial articulation. Normal odontoid process. Normal cervical lordosis. The patient is status post laminectomy and interpedicular screw fixation at the C6-C7 and C7-T1 levels. C2-3: Normal endplates. Normal disc height and morphology. Normal central canal and intervertebral neuroforamina. C3-4: Normal endplates. Normal disc height and morphology. Normal central canal and intervertebral neuroforamina. C4-5: Normal endplates. Normal disc height and morphology. Normal central canal and intervertebral neuroforamina. C5-6: Moderate degree of disc space narrowing. Uncovertebral arthrosis. Bilateral neural foraminal stenosis moderate degree. Minimal retrolisthesis of C5 on C6. C6-7: Prior intrathecal screw fixation. C7-T1: Prior interpedicular screw fixation. There is evidence of soft tissue densities within the subcutaneous fat with evidence of a tear within the posterior soft tissues overlying the lower cervical spine at the level of the surgical intervention. This is more pronounced on the left side of midline. CT/Spine Cervical WITH Contrast IMPRESSION: Status post fusion of the cervical spine as described. Soft tissue prominence at the operative site worse on the left side of the midline. Small amount of air is seen within the lower surgical site. Electronically Signed: Mathieu Quintana MD at 12:46 EDT ,
--- NOTE | 2024-06-19 10:17 | CT_ITS ---
INDICATION: Wound infection EXAMINATION: CT THORACIC SPINE - CT Spine Thoracic W/ Contrast Injection TECHNIQUE: Helically acquired images were obtained of the thoracic spine. 2D reformats were reviewed. A radiation dose optimization technique was used for this scan. IV Contrast dosage and agent: None. COMPARISON: None. FINDINGS: VERTEBRAE: There is almost complete collapse of the T1 vertebrae. Prior fusion of the lower cervical spine with interpedicular screw and cesar fixation device. There is complete collapse of the T6 vertebrae. Increased kyphosis. VERTEBRAL ALIGNMENT: Unremarkable. Mild degree of disc space narrowing at multiple levels. DISCS: Multilevel disc space narrowing and spondylosis. VISUALIZED THORAX: Visualized thoracic aorta is nondilated. Small bilateral pleural effusions with bibasilar atelectasis and/or infiltrates. Coronary artery calcification. CT/Spine Thoracic WITH Contrast IMPRESSION: Almost complete collapse of the T1 and T6 vertebrae. Prior fusion of the lower cervical and upper thoracic spine. Electronically Signed: Mathieu Quintana MD at 12:56 EDT ,
--- NOTE | 2024-06-19 10:22 | PCM.PN.HOSP ---
Subjective Subjective Doing well, no issues overnight Objective Data Objective Data Vital Signs: Vital Signs Temp Pulse Resp BP Pulse Ox O2 Del Method 98.4 F 75 16 110/70 96 Room Air 06/19/24 04:26 06/19/24 04:26 06/19/24 04:26 06/19/24 04:06/19/24 10:03 06/19/24 10:03 Oxygen Delivery Method Room Air Weight: 176 lb 9.444 oz Body Mass Index (BMI) 29.3 Intake & Output: Intake and Output for Last 24 Hours 06/18/24 06/19/24 06/20/24 03:59 03:59 03:59 Intake Total 880 / 880 1165 / 1165 Output Total 500 / 500 500 / 500 Balance 380 / 380 665 / 665 Lab / Micro Data 06/19/24 05:32 06/19/24 05:32 Labs: Laboratory Results - last 24 hr 06/18/24 17:46: WBC 7.1, RBC 4.28 L, Hgb 12.2 L, Hct 38.4 L, MCV 89.7, MCH 28.5, MCHC 31.8 L, RDW Std Deviation 54.6 H, RDW Coeff of Hattie 16.5 H, Plt Count 129 L, MPV 10.9, Immature Gran % (Auto) 0.100, Neut % (Auto) 90.9 H, Lymph % (Auto) 2.0 L, [place] % (Auto) 5.2, Eos % (Auto) 1.7, Baso % (Auto) 0.1, Absolute Neuts (auto) 6.4, Absolute Lymphs (auto) 0.14 L, Nucleated RBC % 0, ESR 47 H, PT 16.3 H, INR 1.3, APTT 40.0 H, Sodium 135 L, Potassium 3.9, Chloride 102, Carbon Dioxide 24.0, Anion Gap 9, BUN 26 H, Creatinine 1.21, Estim Creat Clear Calc 59.75, Est GFR (MDRD) Af Amer 77, Est GFR (MDRD) Non-Af 64, BUN/Creatinine Ratio 21.5 H, Glucose 158 H, Calcium 8.6, Phosphorus 2.5, Magnesium 1.6, Total Bilirubin 0.40, AST 593 H, ALT 511 H, Alkaline Phosphatase 179 H, C-React Prot Ext Range 109.00 H, Total Protein 6.0 L, Albumin 2.9 L, Globulin 3.1, Albumin/Globulin Ratio 0.9 06/18/24 18:25: Lactic Acid 1.5, Urine Color Yellow, Urine Clarity Clear, Urine pH 6.0, Ur Specific [place] 1.010, Urine Protein 15 H, Urine Glucose (UA) Normal, Urine Ketones 5 H, Urine Occult Blood 50 H, Urine Nitrite Positive H, Urine Bilirubin Negative, Urine Urobilinogen Normal, Ur Leukocyte Esterase 25 H, Urine RBC 0-5 SEEN, Urine WBC 5-10 SEEN, Ur Squamous Epith Cells 0 SEEN, Urine Bacteria RARE, Urine Mucus 0 SEEN 06/19/24 05:32: WBC 5.5, RBC 3.96 L, Hgb 11.4 L, Hct 35.3 L, MCV 89.1, MCH 28.8, MCHC 32.3, RDW Std Deviation 54.3 H, RDW Coeff of Hattie 16.6 H, Plt Count 126 L, MPV 10.3, Immature Gran % (Auto) 0.400, Neut % (Auto) 88.1 H, Lymph % (Auto) 2.4 L, [place] % (Auto) 6.5, Eos % (Auto) 2.2, Baso % (Auto) 0.4, Absolute Neuts (auto) 4.9, Absolute Lymphs (auto) 0.13 L, Nucleated RBC % 0, Sodium 138, Potassium 4.0, Chloride 105, Carbon Dioxide 26.0, Anion Gap 7, BUN 17, Creatinine 1.01, Estim Creat Clear Calc 70.15, Est GFR (MDRD) Af Amer 95, Est GFR (MDRD) Non-Af 78, BUN/Creatinine Ratio 16.8, Glucose 118 H, Hemoglobin A1c 5.5, Calcium 8.4 L, Total Bilirubin 0.90, AST 540 H, ALT 636 H, Alkaline Phosphatase 193 H, Total Protein 5.5 L, Albumin 2.6 L, Globulin 2.9, Albumin/Globulin Ratio 0.9 Micro: Microbiology 06/19/24 00:05 Wound - Back Skin and Soft Tissue MRSA/MSSA (PCR - Final Meth. resistant Staph. aureus 06/18/24 18:25 Mucosa - Nose SARS-CoV-2, Influenza & RSV (PCR) - Final Radiography Diagnostic Testing: Radiology Impression Chest X-Ray 06/18/24 18:45 IMPRESSION: No radiographic evidence of acute cardiopulmonary disease. Electronically Signed: Rafaela Benavidez MD at 19:53 EDT Reading Location ID and State: [place] Tel , Service support , Gallbladder Ultrasound 06/18/24 19:02 IMPRESSION: No acute findings in the right upper quadrant. Hepatic steatosis. Electronically Signed: Rafaela Benavidez MD at 20:49 EDT Reading Location ID and State: [place] / Tel , Service support , Physical Exam Narrative General: Alert, Oriented x3, Cooperative, No apparent distress HEENT: Atraumatic, PERRLA, EOMI, Normocephalic Oral: Moist Mucosa Neck: Supple, No JVD Lungs: Clear to auscultation, Normal air movement, No rhonchi, No wheeze, No rales Cardiovascular: Regular rate, Regular Rhythm, Normal S1, Normal S2, No murmurs Abdomen: Soft, Non Tender, Non-Distended, No Hepato-splenomegaly Extremities: No edema, Capillary Refill Less than 3 Seconds Skin: Wounds on back with mild surrounding erythema Musculoskeletal: No Tenderness to Palpation of Joints or Extremities Neurological: No focal neurological deficits, Motor Exam 5/5 strength throughout, Sensory exam intact to light touch and pain Psych/Mental Status: Flat Assessment & Plan Assessment/Plan (1) Other postoperative infection: PLAN: Plan 1. 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 His previous spine surgery was for tumor resection and currently has chronic wounds ? She does have a history of MRSA ? Continue with antibiotics ? Plastic surgery does plan on taking to the OR and has requested further imaging with CT scans as well as consultation with a spine surgeon to assist in the OR ? Right upper quadrant ultrasound shows steatosis with no signs of gallbladder illness, could be combination of infection and steatosis leading to the transaminitis elevation ? No SUSAN ? Continues to have paraplegia secondary to his previous spinal cord compression from osseous metastatic disease from his multiple myeloma ? Continue to follow-up as an outpatient with oncology 2. Essential HTN ? Blood pressures are stable ? Continue with home blood pressure medications 3. Hypothyroidism ? Stable ? Continue with Synthroid 4. History of VTE ? Given the planned intervention will hold Eliquis ? Last dose 06/18/2024 5. GERD ? Stable ? Continue with PPI DVT: SCDs Charges/Coding Visit Charges Inpatient E&M: 18787 Subs Hosp L2
[2024-06-19] MEDS: Menthol/Lanolin/Calamine/Znox 113 GM Tube 1 APPLIC TOPICAL ×5 (10:45→21:00)
[2024-06-19] MEDS: Senna/Docusate Sodium 1 Tablet PO ×2 (10:50→21:01)
[2024-06-19] MEDS: Juven (unflavored) Packet 1 PACKET PO (10:50)
[2024-06-19] MEDS: Pantoprazole Sodium 20 MG Tablet PO (10:50)
[2024-06-19] MEDS: Polyethylene Glycol 3350 17 GM PACKET PO (10:50)
[2024-06-19] MEDS: Metoprolol Tartrate 50 MG Tablet PO ×2 (10:51→21:00)
[2024-06-19] MEDS: amLODIPine 10 MG Tablet PO (10:51)
[2024-06-19] MEDS: Acyclovir 200 MG Capsule 400 MG PO ×2 (10:52→21:00)
[2024-06-19] MEDS: Ascorbic Acid 500 MG Tablet 1000 MG PO ×2 (10:52→21:00)
[2024-06-19] MEDS: Ferrous Sulfate 325 MG Tablet PO (10:54)
--- NOTE | 2024-06-19 11:48 | CON.PCM.OR_ITS ---
HPI Consult Data Date of Consult: 06/19/24 HPI Narrative HPI Narrative: The patient is a 68-year-old male admitted for shortness of breath. 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 He states he had subsequent radiation to the area and developed wound healing issues. He states was seeing wound care in [place] and underwent wound VAC placement which was unsuccessful. He has subsequently moved back locally and is currently seeing wound care here. At this time he is lying in bed resting comfortably. He denies any fever chills nausea vomiting. He states that shortness of breath has improved. 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 History of radiation therapy Non-healing surgical wound Paraplegia Anemia Multiple myeloma DVT (deep venous thrombosis) Back pain Hypothyroidism Hypertension Hypercholesteremia Home Medications ?Medication ?Instructions ?Recorded ?Last Taken ?Type acetaminophen 500 mg capsule 500 mg PO Q6H PRN fever or pain 07/08/23 Unknown History acyclovir 400 mg tablet 400 mg PO Q12H 07/08/23 Unknown History amlodipine 10 mg tablet 10 mg PO DAILY bp 07/08/23 Unknown History ascorbic acid (vitamin C) 1,000 mg 1 g PO BID supplement 07/08/23 Unknown History tablet cholecalciferol (vitamin D3) 125 125 mcg PO DAILY supplement 07/08/23 Unknown History mcg (5,000 unit) capsule diphenhydramine HCl 25 mg capsule 25 mg PO ONCE PRN itching 07/08/23 Unknown History (Benadryl) gabapentin 100 mg capsule 100 mg PO TID back 07/08/23 Unknown History magnesium oxide 250 mg PO .noon bowel health 07/08/23 Unknown History melatonin 3 mg capsule 6 mg PO HS sleep 07/08/23 Unknown History metoprolol tartrate 50 mg tablet 50 mg PO BID 07/08/23 Unknown History omeprazole 20 mg tablet,delayed 20 mg PO DAILY gerd 07/08/23 Unknown History release sennosides 8.6 mg-docusate sodium 1 tab-cap PO BID constipation 07/08/23 Unknown History 50 mg tablet (Senna Plus) simethicone 80 mg chewable tablet 80 mg PO TID PRN abdominal 07/08/23 Unknown History (Gas Relief (simethicone)) distention Disability Placard #1 ea 07/12/23 Unknown Rx ferrous sulfate 325 mg (65 mg 325 mg PO DAILY supplement 07/12/23 Unknown History iron) tablet apixaban 5 mg tablet (Eliquis) 5 mg PO BID vte prophylaxis 07/17/23 Unknown History baclofen 5 mg tablet 5 mg PO BID back pain 08/12/23 Unknown History benzonatate 200 mg capsule 200 mg PO TID PRN cough 08/12/23 Unknown History calcium carbonate 600 mg PO BID supplement 08/12/23 Unknown History levothyroxine 100 mcg tablet 100 mcg PO DAILY thyroid 08/12/23 Unknown History (Levo-T) magnesium hydroxide 400 mg/5 mL 30 ml PO DAILY PRN constipation 08/12/23 Unknown History oral suspension (Milk of Magnesia) polyethylene glycol 3350 17 17 g PO DAILY constipation 08/12/23 Unknown History gram/dose oral powder (ClearLax) lenalidomide 15 mg capsule 15 mg .Route .COMPLEX #21 CAPSULES 04/04/24 Unknown Rx (Revlimid) arginine 7 gram-glutamine 7 1 ea PO DAILY wound 06/18/24 Unknown History gram-calcium HMB 1.5 gram oral powder pack (Ariel) bisacodyl 10 mg rectal suppository 10 mg [place] DAILY PRN PRN constipation 06/18/24 Unknown History (Dulcolax (bisacodyl)) sulfamethoxazole 800 1 tab PO Q12H antibiotic 06/18/24 Unknown History mg-trimethoprim 160 mg tablet dexamethasone 4 mg tablet 20 mg PO Q28D myeloma 06/19/24 Unknown History Allergy/AdvReac Type Severity Reaction Status Date / Time No Known Allergies Allergy Verified 06/18/24 17:37 Family History Mother Follicular lymphoma Father Hypertension Heart disease Brother Hypertension Other Cancer Surgical History History of back surgery History of tooth extraction H/O laminectomy History of cholecystectomy Social History housing: assisted living facility Smoking Status: Never smoker alcohol intake: former substance use type: does not use Vital Signs Vital Signs Vital Signs: 06/18/24 17:30 06/18/24 17:38 06/18/24 17:38 Temperature 100.2 F H 100.2 F H 100.2 F H Temperature Source Oral Oral Oral Pulse Rate 95 95 95 Respiratory Rate 16 19 H 19 H Respiratory Effort Respiratory Depth Respiratory Pattern Blood Pressure 116/102 H 116/102 H 116/102 H Blood Pressure Mean 106 106 106 Blood Pressure Source Blood Pressure Position Blood Pressure Location Pulse Ox 94 94 95 Oxygen Delivery Method Room Air Room Air Room Air 06/18/24 17:40 06/18/24 18:35 06/18/24 18:37 Temperature 103.1 F H Temperature Source Oral Pulse Rate 67 Respiratory Rate 22 H Respiratory Effort Non-Labored Short of Breath Respiratory Depth Respiratory Pattern Normal Blood Pressure 125/69 H Blood Pressure Mean 87 Blood Pressure Source Blood Pressure Position Blood Pressure Location Pulse Ox 94 93 Oxygen Delivery Method Room Air Room Air Room Air 06/18/24 18:40 06/18/24 19:00 06/18/24 20:00 Temperature 103.1 F H 102.9 F H 100.6 F H Temperature Source Oral Oral Oral Pulse Rate 67 79 79 Respiratory Rate 22 H 20 H 26 H Respiratory Effort Respiratory Depth Respiratory Pattern Blood Pressure 125/69 H 123/64 H 113/63 Blood Pressure Mean 87 83 79 Blood Pressure Source Blood Pressure Position Blood Pressure Location Pulse Ox 93 94 93 Oxygen Delivery Method Room Air Room Air Room Air 06/18/24 21:00 06/18/24 21:24 06/18/24 22:00 Temperature 101.2 F H 99.8 F H 99.8 F H Temperature Source Oral Oral Pulse Rate 74 74 66 Respiratory Rate 20 H 20 H 18 Respiratory Effort Respiratory Depth Respiratory Pattern Blood Pressure 112/66 113/66 106/76 Blood Pressure Mean 81 81 86 Blood Pressure Source Blood Pressure Position Blood Pressure Location Pulse Ox 94 94 97 Oxygen Delivery Method Room Air Room Air 06/18/24 23:01 06/18/24 23:10 06/18/24 23:29 Temperature 97.0 F L 97.0 F L Temperature Source Temporal Temporal Pulse Rate 67 67 Respiratory Rate 18 18 Respiratory Effort Normal Non-Labored Respiratory Depth Normal Respiratory Pattern Normal Blood Pressure 110/67 110/67 Blood Pressure Mean 81 81 Blood Pressure Source Monitor Blood Pressure Position Semi-Fowlers Blood Pressure Location Left Arm Pulse Ox 95 95 Oxygen Delivery Method Room Air Room Air Room Air 06/19/24 01:44 06/19/24 04:26 06/19/24 10:03 Temperature 97.8 F 98.4 F Temperature Source Temporal Temporal Pulse Rate 70 75 Respiratory Rate 18 16 Respiratory Effort Respiratory Depth Respiratory Pattern Blood Pressure 105/56 L 110/70 Blood Pressure Mean 72 83 Blood Pressure Source Monitor Blood Pressure Position Semi-Fowlers Blood Pressure Location Left Arm Pulse Ox 93 92 96 Oxygen Delivery Method Room Air Room Air Room Air 06/19/24 10:34 06/19/24 10:51 Temperature 97.5 F L Temperature Source Temporal Pulse Rate 70 70 Respiratory Rate 16 Respiratory Effort Respiratory Depth Respiratory Pattern Blood Pressure 116/70 116/70 Blood Pressure Mean 85 Blood Pressure Source Monitor Blood Pressure Position Semi-Fowlers Blood Pressure Location Left Arm Pulse Ox 95 Oxygen Delivery Method Room Air Weight Weight: 176 lb 9.444 oz Body Mass Index (BMI) 29.3 Physical Exam Const alert, oriented x3 and no apparent distress General Appearance: cooperative, comfortable and well kempt Neck full ROM Resp normal respiratory effort and normal air movement Effort and Inspection: able to speak in complete sentences Cardio regular rate and peripheral pulses 2+ throughout GI soft to palpation, non-tender and non-distended Back/Spine Back/Spine Narrative: Dressing in the posterior cervical thoracic region clean dry and intact. Dressing taken down. The patient has two 1 cm ulcers in the posterior cervical thoracic region with mild to moderate serosanguineous drainage Cervical Spine: cervical ROM normal Thoracic Spine / Upper Back: normal to inspection Lumbar Spine / Lower Back: normal to inspection Extremity normal to inspection, full ROM, normal capillary refill, no clubbing, cyanosis or edema and no calf tenderness Neuro oriented x3, CN's II-XII intact bilaterally, moves all extremities, no focal motor deficits, no sensory deficits noted and deep tendon reflexes 2+ bilaterally Neuro Narrative: Sustained clonus noted in the bilateral ankles Strength this 4+ out of 5 in bilateral hip flexion, knee extension, ankle dorsiflexion, EHL, plantarflexion Strength is 5 out of 5 in the bilateral upper extremities throughout Motor Exam: muscle tone normal throughout Lab / Micro Data 06/19/24 05:32 06/19/24 05:32 Labs: Laboratory Results - last 24 hr 06/18/24 17:46: WBC 7.1, RBC 4.28 L, Hgb 12.2 L, Hct 38.4 L, MCV 89.7, MCH 28.5, MCHC 31.8 L, RDW Std Deviation 54.6 H, RDW Coeff of Hattie 16.5 H, Plt Count 129 L, MPV 10.9, Immature Gran % (Auto) 0.100, Neut % (Auto) 90.9 H, Lymph % (Auto) 2.0 L, [place] % (Auto) 5.2, Eos % (Auto) 1.7, Baso % (Auto) 0.1, Absolute Neuts (auto) 6.4, Absolute Lymphs (auto) 0.14 L, Nucleated RBC % 0, ESR 47 H, PT 16.3 H, INR 1.3, APTT 40.0 H, Sodium 135 L, Potassium 3.9, Chloride 102, Carbon Dioxide 24.0, Anion Gap 9, BUN 26 H, Creatinine 1.21, Estim Creat Clear Calc 59.75, Est GFR (MDRD) Af Amer 77, Est GFR (MDRD) Non-Af 64, BUN/Creatinine Ratio 21.5 H, G lucose 158 H, Calcium 8.6, Phosphorus 2.5, Magnesium 1.6, Total Bilirubin 0.40, AST 593 H, ALT 511 H, Alkaline Phosphatase 179 H, C-React Prot Ext Range 109.00 H, Total Protein 6.0 L, Albumin 2.9 L, Globulin 3.1, Albumin/Globulin Ratio 0.9 06/18/24 18:25: Lactic Acid 1.5, Urine Color Yellow, Urine Clarity Clear, Urine pH 6.0, Ur Specific [place] 1.010, Urine Protein 15 H, Urine Glucose (UA) Normal, Urine Ketones 5 H, Urine Occult Blood 50 H, Urine Nitrite Positive H, Urine Bilirubin Negative, Urine Urobilinogen Normal, Ur Leukocyte Esterase 25 H, Urine RBC 0-5 SEEN, Urine WBC 5-10 SEEN, Ur Squamous Epith Cells 0 SEEN, Urine Bacteria RARE, Urine Mucus 0 SEEN 06/19/24 05:32: WBC 5.5, RBC 3.96 L, Hgb 11.4 L, Hct 35.3 L, MCV 89.1, MCH 28.8, MCHC 32.3, RDW Std Deviation 54.3 H, RDW Coeff of Hattie 16.6 H, Plt Count 126 L, MPV 10.3, Immature Gran % (Auto) 0.400, Neut % (Auto) 88.1 H, Lymph % (Auto) 2.4 L, [place] % (Auto) 6.5, Eos % (Auto) 2.2, Baso % (Auto) 0.4, Absolute Neuts (auto) 4.9, Absolute Lymphs (auto) 0.13 L, Nucleated RBC % 0, Sodium 138, Potassium 4.0, Chloride 105, Carbon Dioxide 26.0, Anion Gap 7, BUN 17, Creatinine 1.01, Estim Creat Clear Calc 70.15, Est GFR (MDRD) Af Amer 95, Est GFR (MDRD) Non-Af 78, BUN/Creatinine Ratio 16.8, Glucose 118 H, Hemoglobin A1c 5.5, Calcium 8.4 L, Total Bilirubin 0.90, AST 540 H, ALT 636 H, Alkaline Phosphatase 193 H, Total Protein 5.5 L, Albumin 2.6 L, Globulin 2.9, Albumin/Globulin Ratio 0.9 Micro: Microbiology 06/19/24 00:05 Wound - Back Skin and Soft Tissue MRSA/MSSA (PCR - Final Meth. resistant Staph. aureus 06/18/24 18:25 Mucosa - Nose SARS-CoV-2, Influenza & RSV (PCR) - Final Imaging Radiology Impression Chest X-Ray 06/18/24 18:45 IMPRESSION: No radiographic evidence of acute cardiopulmonary disease. Electronically Signed: Rafaela Benavidez MD at 19:53 EDT Reading Location ID and State: Carlos Vu MD Tel , Service support , Gallbladder Ultrasound 06/18/24 19:02 IMPRESSION: No acute findings in the right upper quadrant. Hepatic steatosis. Electronically Signed: Rafaela Benavidez MD at 20:49 EDT Reading Location ID and State: [place] Vu MD Tel , Service support , Assessment & Plan Assessment/Plan (1) Open wound of tissue overlying spine: PLAN: I had a lengthy discussion with the patient. I reviewed his imaging with him. Cervical and thoracic CT scans dated 06/19/2024 shows surgery from prior C7-T4 posterior spinal fusion. All hardware appears intact and in acceptable alignment. He does continue to have ongoing wound issues overlying his hardware in the posterior cervical thoracic region. Plastics has been consulted and is considering possible flap procedure. As far as his spine hardware is concerned I do not recommend any further surgery for this. Will discuss with plastics. Otherwise the patient can follow-up with orthospine as needed. He understands and agrees with the treatment plan
[2024-06-19] MEDS: Baclofen 10 MG Tablet 5 MG PO ×2 (12:36→21:00)
--- NOTE | 2024-06-19 12:41 | CON.PCM.ID_ITS ---
Assessment & Plan Assessment/Plan (1) Open wound of tissue overlying spine: PLAN: wound cx pending, seen by plastic surgery and spine surgery. Cont vanc/zosyn for now. Will follow, thank you (2) Paraplegia: HPI Consult Data Date of Consult: 06/19/24 HPI Narrative Reason for Consultation: wound infection HPI Narrative: RACHEAL BURLESON, is a 68 M with multiple myeloma, paraplegia s/p spine tumor resection, presented 06/18 with that day onset of dyspnea, mild cough, associated with fatigue. Also reports several days increased pain in upper back wounds with some redness and drainage. No fever. Had been recently started on po abx (? bactrim) for this issue. Admitted on vanc/zosyn, spine surgery consulted. Full ROS performed and neg except as noted above. 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 History of radiation therapy Non-healing surgical wound Paraplegia Anemia Multiple myeloma DVT (deep venous thrombosis) Back pain Hypothyroidism Hypertension Hypercholesteremia Home Medications ?Medication ?Instructions ?Recorded ?Last Taken ?Type acetaminophen 500 mg capsule 500 mg PO Q6H PRN fever or pain 07/08/23 Unknown History acyclovir 400 mg tablet 400 mg PO Q12H 07/08/23 Unknown History amlodipine 10 mg tablet 10 mg PO DAILY bp 07/08/23 Unknown History ascorbic acid (vitamin C) 1,000 mg 1 g PO BID supplement 07/08/23 Unknown History tablet cholecalciferol (vitamin D3) 125 125 mcg PO DAILY supplement 07/08/23 Unknown History mcg (5,000 unit) capsule diphenhydramine HCl 25 mg capsule 25 mg PO ONCE PRN itching 07/08/23 Unknown History (Benadryl) gabapentin 100 mg capsule 100 mg PO TID back 07/08/23 Unknown History magnesium oxide 250 mg PO .noon bowel health 07/08/23 Unknown History melatonin 3 mg capsule 6 mg PO HS sleep 07/08/23 Unknown History metoprolol tartrate 50 mg tablet 50 mg PO BID 07/08/23 Unknown History omeprazole 20 mg tablet,delayed 20 mg PO DAILY gerd 07/08/23 Unknown History release sennosides 8.6 mg-docusate sodium 1 tab-cap PO BID constipation 07/08/23 Unknown History 50 mg tablet (Senna Plus) simethicone 80 mg chewable tablet 80 mg PO TID PRN abdominal 07/08/23 Unknown History (Gas Relief (simethicone)) distention Disability Placard #1 ea 07/12/23 Unknown Rx ferrous sulfate 325 mg (65 mg 325 mg PO DAILY supplement 07/12/23 Unknown History iron) tablet apixaban 5 mg tablet (Eliquis) 5 mg PO BID vte prophylaxis 07/17/23 Unknown History baclofen 5 mg tablet 5 mg PO BID back pain 08/12/23 Unknown History benzonatate 200 mg capsule 200 mg PO TID PRN cough 08/12/23 Unknown History calcium carbonate 600 mg PO BID supplement 08/12/23 Unknown History levothyroxine 100 mcg tablet 100 mcg PO DAILY thyroid 08/12/23 Unknown History (Levo-T) magnesium hydroxide 400 mg/5 mL 30 ml PO DAILY PRN constipation 08/12/23 Unknown History oral suspension (Milk of Magnesia) polyethylene glycol 3350 17 17 g PO DAILY constipation 08/12/23 Unknown History gram/dose oral powder (ClearLax) lenalidomide 15 mg capsule 15 mg .Route .COMPLEX #21 CAPSULES 04/04/24 Unknown Rx (Revlimid) arginine 7 gram-glutamine 7 1 ea PO DAILY wound 06/18/24 Unknown History gram-calcium HMB 1.5 gram oral powder pack (Ariel) bisacodyl 10 mg rectal suppository 10 mg [place] DAILY PRN PRN constipation 06/18/24 Unknown History (Dulcolax (bisacodyl)) sulfamethoxazole 800 1 tab PO Q12H antibiotic 06/18/24 Unknown History mg-trimethoprim 160 mg tablet dexamethasone 4 mg tablet 20 mg PO Q28D myeloma 06/19/24 Unknown History Allergy/AdvReac Type Severity Reaction Status Date / Time No Known Allergies Allergy Verified 06/18/24 17:37 Family History Mother Follicular lymphoma Father Hypertension Heart disease Brother Hypertension Other Cancer Surgical History History of back surgery History of tooth extraction H/O laminectomy History of cholecystectomy Social History housing: assisted living facility Smoking Status: Never smoker alcohol intake: former substance use type: does not use Physical Exam Const alert, oriented x3 and no apparent distress General Appearance: cooperative HEENT normocephalic and head/scalp atraumatic Eyes PERRL and EOMs intact bilaterally Neck supple and No nodes Resp normal air movement and clear to auscultation bilaterally Cardio regular rate and regular rhythm GI soft to palpation, non-tender and non-distended Extremity General Extremity: Negative for edema Skin Skin Narrative: reviewed wound photos Neuro CN's II-XII intact bilaterally Lab / Micro Data Attestation: I reviewed the patient's lab results. 06/19/24 05:32 06/19/24 05:32 Labs: Laboratory Results - last 24 hr 06/18/24 17:46: WBC 7.1, RBC 4.28 L, Hgb 12.2 L, Hct 38.4 L, MCV 89.7, MCH 28.5, MCHC 31.8 L, RDW Std Deviation 54.6 H, RDW Coeff of Hattie 16.5 H, Plt Count 129 L, MPV 10.9, Immature Gran % (Auto) 0.100, Neut % (Auto) 90.9 H, Lymph % (Auto) 2.0 L, [place] % (Auto) 5.2, Eos % (Auto) 1.7, Baso % (Auto) 0.1, Absolute Neuts (auto) 6.4, Absolute Lymphs (auto) 0.14 L, Nucleated RBC % 0, ESR 47 H, PT 16.3 H, INR 1.3, APTT 40.0 H, Sodium 135 L, Potassium 3.9, Chloride 102, Carbon Dioxide 24.0, Anion Gap 9, BUN 26 H, Creatinine 1.21, Estim Creat Clear Calc 59.75, Est GFR (MDRD) Af Amer 77, Est GFR (MDRD) Non-Af 64, BUN/Creatinine Ratio 21.5 H, G lucose 158 H, Calcium 8.6, Phosphorus 2.5, Magnesium 1.6, Total Bilirubin 0.40, AST 593 H, ALT 511 H, Alkaline Phosphatase 179 H, C-React Prot Ext Range 109.00 H, Total Protein 6.0 L, Albumin 2.9 L, Globulin 3.1, Albumin/Globulin Ratio 0.9 06/18/24 18:25: Lactic Acid 1.5, Urine Color Yellow, Urine Clarity Clear, Urine pH 6.0, Ur Specific [place] 1.010, Urine Protein 15 H, Urine Glucose (UA) Normal, Urine Ketones 5 H, Urine Occult Blood 50 H, Urine Nitrite Positive H, Urine Bilirubin Negative, Urine Urobilinogen Normal, Ur Leukocyte Esterase 25 H, Urine RBC 0-5 SEEN, Urine WBC 5-10 SEEN, Ur Squamous Epith Cells 0 SEEN, Urine Bacteria RARE, Urine Mucus 0 SEEN 06/19/24 05:32: WBC 5.5, RBC 3.96 L, Hgb 11.4 L, Hct 35.3 L, MCV 89.1, MCH 28.8, MCHC 32.3, RDW Std Deviation 54.3 H, RDW Coeff of Hattie 16.6 H, Plt Count 126 L, MPV 10.3, Immature Gran % (Auto) 0.400, Neut % (Auto) 88.1 H, Lymph % (Auto) 2.4 L, [place] % (Auto) 6.5, Eos % (Auto) 2.2, Baso % (Auto) 0.4, Absolute Neuts (auto) 4.9, Absolute Lymphs (auto) 0.13 L, Nucleated RBC % 0, Sodium 138, Potassium 4.0, Chloride 105, Carbon Dioxide 26.0, Anion Gap 7, BUN 17, Creatinine 1.01, Estim Creat Clear Calc 70.15, Est GFR (MDRD) Af Amer 95, Est GFR (MDRD) Non-Af 78, BUN/Creatinine Ratio 16.8, Glucose 118 H, Hemoglobin A1c 5.5, Calcium 8.4 L, Total Bilirubin 0.90, AST 540 H, ALT 636 H, Alkaline Phosphatase 193 H, Total Protein 5.5 L, Albumin 2.6 L, Globulin 2.9, Albumin/Globulin Ratio 0.9 Micro: Microbiology 06/19/24 00:05 Wound - Back Skin and Soft Tissue MRSA/MSSA (PCR - Final Meth. resistant Staph. aureus 06/18/24 18:25 Mucosa - Nose SARS-CoV-2, Influenza & RSV (PCR) - Final Imaging Radiology Impression Chest X-Ray 06/18/24 18:45 IMPRESSION: No radiographic evidence of acute cardiopulmonary disease. Electronically Signed: Rafaela Benavidez MD at 19:53 EDT Reading Location ID and State: Carlos Vu MD Tel , Service support , Gallbladder Ultrasound 06/18/24 19:02 IMPRESSION: No acute findings in the right upper quadrant. Hepatic steatosis. Electronically Signed: Rafaela Benavidez MD at 20:49 EDT Reading Location ID and State: Carlos Vu MD Tel , Service support ,
[2024-06-19] MEDS: Vancomycin IV 1,000 MG/200 ML BAG 200 MG IV ×2 (14:49→21:00)
--- NOTE | 2024-06-19 14:55 | NURSING ---
Port placed at OSH ([place] in [facility]). Per X-ray does not appear to be a power port, stating not a typical triangle. Unit nurse states she feels the 3 knubs, but per Dr Perez please use as a REGULAR Port, not PowerPort.
[2024-06-19] MEDS: MELATONIN 3 MG TABLET 6 MG PO (21:00)
[2024-06-20] VITALS (7 sets, daily range): BP systolic 102–126; BP diastolic 63–71; PULSE 60–85; RESP 14–18; TEMP 36.6–37.3; O2SAT 92–95; BMI 29.2
[2024-06-20 06:22] LABS: Absolute Lymphocyte Count 0.22 X10^3/uL (0.83-4.51); Absolute Neutrophil Count 4.9 X10^3/uL (2.0-7.7); Basophil# 0.01 X10^3/uL; Basophil% 0.2 % (0-1); Eosinophil# 0.17 X10^3/uL; Hematocrit 36.1 % (40-54); Hemoglobin 11.3 g/dL (13.0-16.5); Lymphocyte # 0.22 X10^3/ul (0.83-4.51); Lymphocyte % 3.9 % (19-41); Mean Corp Hgb Conc 31.3 g/dL (32-36); Mean Corpuscular Hgb 28.3 pg (27.0-32.0); Mean Corpuscular Volume 90.3 fL (80-94); Mean Platelet Vol. 10.2 fl (6.2-12.0); Monocyte# 0.33 X10^3/uL; Monocyte% 5.8 % (0-10); NRBC Flagged by Analyzer 0 % (0-5); Neutrophil # 4.93 X10^3/uL (2.7-7.7); Neutrophil % 86.7 % (47-70); POSITIVE DIFFERENTIAL YES; Platelet Count 126 K/mm3 (150-450); RBC Distribution Width CV 16.5 % (11.6-14.6); RBC Distribution Width SD 54.8 fl (35.1-43.9); White Blood Count 5.7 K/mm3 (4.4-11.0)
[2024-06-20 06:50] LABS: ALB/GLOB Ratio 0.8 RATIO (0.9-2.4); AST(SGOT) 166 U/L (15-37); Alanine Aminotransfer ALT/SGPT 447 U/L (16-61); Albumin, Serum 2.5 g/dL (3.2-5.0); Alkaline Phosphatase 192 U/L (45-117); Anion Gap 4 (5-15); BUN 13 mg/dL (7-18); BUN/Creat Ratio 11.8 RATIO (10-20); Calcium,Total 8.4 mg/dL (8.5-10.1); Chloride 104 mmol/L (98-107); EST Glomerular Filtration Rate 71 mL/min (>60); Est Glom Filt Rate - Afr Amer 86 mL/min (>60); Estimated Creatinine Clearance 64.34 ml/min; Globulin 3.1 g/dL (2.2-4.2); Glucose 110 mg/dL (74-106); Potassium 3.8 mmol/L (3.5-5.1); Protein, Total 5.6 g/dL (6.4-8.2); Sodium Level 136 mmol/L (136-145)
[2024-06-20] MEDS: Piperacil/Tazobactam 3.375 GM in 0.9% Normal Saline (50mL MB+) 50 ML IV ×3 (07:05→23:08)
[2024-06-20] MEDS: Gabapentin 100 MG Capsule PO ×3 (07:05→20:55)
[2024-06-20] MEDS: Levothyroxine 100 MCG Tablet PO (07:05)
--- NOTE | 2024-06-20 09:24 | CASEMGMT ---
Discharge Planning Updates faxed to [facility] attn; Gabbi Szymanski. Fax confirmation rec'd. Maddi Soni DC Planning Asst.
--- NOTE | 2024-06-20 09:37 | PN.SURG_ITS ---
Subjective Subjective HPI RACHEAL BURLESON, is a 68 M with a history of multiple myeloma with a pathologic compression fracture of the T-spine (T2 - T7) leading to severe lower extremity weakness (can walk but only with a walker) who underwent fusion of his cervical/thoracic spine and October 2022 followed by radiation therapy in December 2022 and adjuvant chemotherapy in the summer 2022 who was admitted last night from a local assisted living facility for a fever workup. The internal medicine consulted me regarding a thoracic wound that has been draining. Patient reports that he has had a wound ever since the spring 2022 around the time when he was receiving radiation and did not have any subsequent surgery following the fusion. His spine surgeon at [facility] does not have any further plans for the wound or the hardware per patient report. Patient has been following with the wound care center in [place] and they have been placing of wound VAC over the wound until last week. He has since been doing iodoform packing in the wounds. He has not had any recent advanced imaging. In the ED his chest x-ray was unremarkable and he is not having any shortness of breath or trouble breathing. His urinalysis was positive for nitrites (he has a Humphries), and urine cultures are pending. Today on the floor he is afebrile (albeit febrile to 103 yesterday) with stable VS. He is on Vancomycin and Zosyn. His WBC is 5.5, hemoglobin is 11.4, and his platelets are 126. He has a transaminitis that was not previously diagnosed (AST 540 and ALT 636 with INR of 1.3). Of note he was also diagnosed with bilateral lower extremity DVTs during his initial hospitalization for the pathologic compression fractures and has been on Eliquis as a home medication ever since. He follows with Dr. Perez at our hospital for his cancer care. He was last seen in April 2024 for follow-up of his multiple myeloma. He is on systemic daratumumab maintenance. He also takes acyclovir and Bactrim for prophylaxis. The recommendations from hematology was to hold anticoagulation 48 hours prior to any invasive procedure but to continue DVT prophylaxis long-term as he has malignancy induced hypercoagulability. CURRENT ENCOUNTER, 20 Jun 2024: I talked to the patient this morning about his condition. He understands that he is a chronic wound that extends likely down to the hardware, and that the hardware is obligatory. I talked to him extensively today about surgery in conjunction with Dr. Menchaca. Of note patient's sister lives in [facility] ([place] Patient has been at his rehab facility for about a year. He would like to get out of the rehab facility and go live with his sister, and he is working on progressing with his physical therapy in order to be discharged. His father also had a blood clot, but it was during a hospitalization where he was immobilized for prolonged period of time near the end of his life. The patient does not report any history of known clotting disorders in his family. Of note, patient said today I do not want to live with this wound, and I would like to surgery to fix it. Objective Data Objective Data Vital Signs: Vital Signs Temp Pulse Resp BP Pulse Ox O2 Del Method 99.0 F 64 18 106/63 92 Room Air 06/20/24 03:58 06/20/24 03:58 06/20/24 03:58 06/20/24 03:58 06/20/24 07:34 06/20/24 07:34 Oxygen Delivery Method Room Air Weight: 176 lb 2.389 oz Body Mass Index (BMI) 29.2 Intake & Output: Intake and Output for Last 24 Hours 06/18/24 06/19/24 06/20/24 23:59 23:59 23:59 Intake Total 100 / 100 3445 / 3445 50 / 50 Output Total 1350 / 1350 400 / 400 Balance 100 / 100 2095 / 2095 -350 / -350 Lab / Micro Data 06/20/24 05:50 06/20/24 05:50 Labs: Laboratory Results - last 24 hr 06/20/24 05:50: WBC 5.7, RBC 4.00 L, Hgb 11.3 L, Hct 36.1 L, MCV 90.3, MCH 28.3, MCHC 31.3 L, RDW Std Deviation 54.8 H, RDW Coeff of Hattie 16.5 H, Plt Count 126 L, MPV 10.2, Immature Gran % (Auto) 0.400, Neut % (Auto) 86.7 H, Lymph % (Auto) 3.9 L, [place] % (Auto) 5.8, Eos % (Auto) 3.0, Baso % (Auto) 0.2, Absolute Neuts (auto) 4.9, Absolute Lymphs (auto) 0.22 L, Nucleated RBC % 0, Sodium 136, Potassium 3.8, Chloride 104, Carbon Dioxide 28.0, Anion Gap 4 L, BUN 13, Creatinine 1.10, Estim Creat Clear Calc 64.34, Est GFR (MDRD) Af Amer 86, Est GFR (MDRD) Non-Af 71, BUN/Creatinine Ratio 11.8, Glucose 110 H, Calcium 8.4 L, Total Bilirubin 0.80, AST 166 H, ALT 447 H, Alkaline Phosphatase 192 H, Total Protein 5.6 L, A lbumin 2.5 L, Globulin 3.1, Albumin/Globulin Ratio 0.8 L Micro: Microbiology 06/18/24 18:25 Urine, Clean Catch Urine Culture - Final Enterococcus faecalis 06/19/24 00:05 Wound - Back Gram Stain - Final 06/19/24 00:05 Wound - Back Skin and Soft Tissue MRSA/MSSA (PCR - Final Meth. resistant Staph. aureus 06/18/24 18:25 Mucosa - Nose SARS-CoV-2, Influenza & RSV (PCR) - Final Radiography Diagnostic Testing: Radiology Impression Cervical Spine CT 06/19/24 10:17 IMPRESSION: Status post fusion of the cervical spine as described. Soft tissue prominence at the operative site worse on the left side of the midline. Small amount of air is seen within the lower surgical site. Electronically Signed: Mathieu Quintana MD at 12:46 EDT , Thoracic Spine CT 06/19/24 10:17 IMPRESSION: Almost complete collapse of the T1 and T6 vertebrae. Prior fusion of the lower cervical and upper thoracic spine. Electronically Signed: Mathieu Quintana MD at 12:56 EDT , Physical Exam Narrative Thoracic spine Two 1 x 1 cm draining (serosanguineous fluid, no aguila purulence) sinuses/wounds in the thoracic spine region with surrounding skin with the stigmata of radiation dermatitis. No areas of fluctuance (nondraining areas). The areas are slightly tender to palpation. Const alert and oriented x3 Constitutional Narrative: Able to give excellent history Eyes EOMs intact bilaterally Chest Chest Narrative: Right upper extremity port Resp normal respiratory effort Cardio Rate: regular rate Rhythm: regular rhythm GI soft to palpation Extremity no calf tenderness Extremity Narrative: Left lower extremity with some swelling compared to the right, but no redness Neuro CN's II-XII intact bilaterally Psych mental status grossly normal Assessment & Plan Assessment/Plan (1) Open wound of tissue overlying spine: QUALIFIERS: Encounter type: initial encounter Laterality: u nspecified laterality Qualified Code(s): S21.209A - Unspecified open wound of unspecified back wall of thorax without penetration into thoracic cavity, initial encounter (2) Radiation adverse effect: QUALIFIERS: Encounter type: sequela Qualified Code(s): T66.XXXS - Radiation sickness, unspecified, sequela PLAN: Plan I spoke with Dr. Perez, Mr. Burleson's delivery and installation subcontractor/oncologist. He reports that the patient has had excellent response to chemoradiation, and his prognosis is fair as he may live for many years with the multiple myeloma as a chronic illness. He suggest that we proceed with the surgery if indicated from a surgical standpoint. I talked to Dr. Menchaca from spine surgery. The hardware is obligatory, and cannot be removed. Dr. Menchaca believes the hardware is stable, but that the hardware is likely at the base of the wound. Our plan is to perform an incision and drainage of the wound together in the operating room sometime next week to washout the wound and expose any infection. We will then take deep soft tissue/bone cultures and place an irrigating wound VAC (likely with Dakin's or Vashe) and repeat this a couple of times to clean the wound as best as possible, and work with ID on potential chronic suppressive antibiotic course. Once a definitive date for the operative plan is known (likely early next week), we will discuss with primary team immediately (we will have to hold Eliquis 48 hours before surgery). I talked to Rosa Boris and extensively today about surgery. He understands the risks and benefits, including the risk bleeding, infection, damage to surrounding structures, surgical site dehiscence and wound formation, need for wound care (failure to clean the base of the wound and get complete disinfection of the hardware and thus development of chronic wounds in the future and chronic infections in the future), flap failure, need for repeat operations, failure to obtain the desired result, DVT/PE (patient will come off of his Eliquis 48 hours before surgery and restart it postoperative day 1 --this was per discussion with his delivery and installation subcontractor today), and the risks of anesthesia including . All of their questions were answered, and they agreed to proceed with surgery. He is accepting of the above-noted risks including risk of VTE. Talked about donor sites for the flap, including local muscle flaps (trapezius muscle). If local options fail, I discussed with him free tissue transfer (vastus lateralis) and he understood this plan and all questions were answered. He would like to proceed. Charges/Coding Visit Charges Inpatient E&M: 46134 Subs Hosp L3 (Reviewed complex imaging (CT scan) and coordinated with other specialties including neurosurgery and hematology oncology. Very long patient discussion today as well )
[2024-06-20] MEDS: Baclofen 10 MG Tablet 5 MG PO ×2 (09:47→20:55)
[2024-06-20] MEDS: Senna/Docusate Sodium 1 Tablet PO ×2 (09:47→20:55)
[2024-06-20] MEDS: Pantoprazole Sodium 20 MG Tablet PO (09:47)
[2024-06-20] MEDS: amLODIPine 10 MG Tablet PO (09:48)
[2024-06-20] MEDS: Acyclovir 200 MG Capsule 400 MG PO ×2 (09:48→20:56)
[2024-06-20] MEDS: Ascorbic Acid 500 MG Tablet 1000 MG PO ×2 (09:48→20:55)
[2024-06-20] MEDS: Ferrous Sulfate 325 MG Tablet PO (09:49)
[2024-06-20] MEDS: Polyethylene Glycol 3350 17 GM PACKET PO (09:49)
[2024-06-20] MEDS: Menthol/Lanolin/Calamine/Znox 113 GM Tube 1 APPLIC TOPICAL ×4 (09:49→20:57)
[2024-06-20 10:12] LABS: Vancomycin, Trough Level 13.6 ug/mL (5.0-15.0)
[2024-06-20] MEDS: Acetaminophen 325 MG Tablet 650 MG PO (10:14)
[2024-06-20] MEDS: Metoprolol Tartrate 50 MG Tablet PO ×2 (10:25→20:56)
--- NOTE | 2024-06-20 10:26 | PCM.RX.CS ---
Consult Antibiotic Management Pharmacy has been consulted to manage selected antibiotic: Vancomycin Type of Intervention Type of Consult: Follow-up Suspected Infection Suspected Infection: Skin/Soft tissue Prior Doses of Antibiotics Prior Doses of Antibiotics Received/Current Regimen: Vancomycin 1000 mg Q12H last dose given 06/19 @ 2100 Labs Labs: Sodium 136 mmol/L (136-145) 06/20/24 05:50 Potassium 3.8 mmol/L (3.5-5.1) 06/20/24 05:50 Chloride 104 mmol/L (98-107) 06/20/24 05:50 Carbon Dioxide 28.0 mmol/L (21.0-32.0) 06/20/24 05:50 Anion Gap 4 (5-15) L 06/20/24 05:50 BUN 13 mg/dL (7-18) 06/20/24 05:50 Creatinine 1.10 mg/dL (0.70-1.30) 06/20/24 05:50 Est GFR (MDRD) Af Amer 86 mL/min (>60) 06/20/24 05:50 Est GFR (MDRD) Non-Af 71 mL/min (>60) 06/20/24 05:50 BUN/Creatinine Ratio 11.8 RATIO (10-20) 06/20/24 05:50 Glucose 110 mg/dL (74-106) H 06/20/24 05:50 Vancomycin Trough 13.6 ug/mL (5.0-15.0) 06/20/24 09:32 Microbiology Microbiology: Microbiology 06/18/24 18:25 Urine, Clean Catch Urine Culture - Final Enterococcus faecalis 06/19/24 00:05 Wound - Back Gram Stain - Final 06/19/24 00:05 Wound - Back Skin and Soft Tissue MRSA/MSSA (PCR - Final Meth. resistant Staph. aureus 06/18/24 18:25 Mucosa - Nose SARS-CoV-2, Influenza & RSV (PCR) - Final Dosing Weight Weight used for dosin kg Estimated Creatinine Clearance Estimated Creatinine Clearance: ~ 64 Goal Trough Goal Trough: 15-20 mcg/mL Pharmacy Plan for Drug Dosing Pharmacy Plan for Drug Dosing: Vancomycin trough 13.6, will increase to 1250 mg Q12H, trough prior to 4th dose of new regimen. Pharmacy Service will continue to monitor and adjust dosing as required. Follow-Up Labs Follow-Up Labs: Trough: Vancomycin Date/Time Labs Ordered Labs to be done on [date and time ordered]: 06/21/24 @ 2200
[2024-06-20] MEDS: Vancomycin HCl 1,250 MG in 0.9% Normal Saline (250mL Bag) 250 ML 167 MG IV ×2 (10:30→20:58)
[2024-06-20 11:20] LABS: Vitamin B12 585 pg/mL (211-911)
[2024-06-20 11:27] LABS: Ferritin 456 ng/mL (26-388); Iron 17 ug/dL (65-175); Iron Binding Capacity,Total 208 ug/dL (250-450); PERCENT IRON SATURATION 8.2 % (15.0-55.0); Phosphorus 3.1 mg/dL (2.5-4.9)
--- NOTE | 2024-06-20 11:30 | PCM.PN.ID ---
Physical Exam Narrative Feeling a little better, back less sore, no fever Const alert and no apparent distress Resp normal air movement and clear to auscultation bilaterally Cardio regular rate and regular rhythm GI soft to palpation, non-tender and non-distended Skin Skin Narrative: reviewed photos ID ID: Route of nutrition/ use of supplements: [] Nutritional Intake: [] IV Site: [] Humphries Catheter: [] Assessment & Plan Assessment/Plan (1) Open wound of tissue overlying spine: QUALIFIERS: Encounter type: initial encounter Laterality: unspecified laterality Qualified Code(s): S21.209A - Unspecified open wound of unspecified back wall of thorax without penetration into thoracic cavity, initial encounter PLAN: wound cx pending (MRSA pcr positive), seen by plastic surgery and spine surgery, OR planned for next week. Cont vanc/zosyn for now. ucx with small growth enterococcus. Will follow (2) Paraplegia:
--- NOTE | 2024-06-20 13:38 | PCM.PN.HOSP ---
Subjective Subjective Doing well, no issues overnight Objective Data Objective Data Vital Signs: Vital Signs Temp Pulse Resp BP Pulse Ox O2 Del Method 99.1 F 85 14 102/64 95 Room Air 06/20/24 10:23 06/20/24 10:25 06/20/24 10:23 06/20/24 10:23 06/20/24 10:06/20/24 10:23 Oxygen Delivery Method Room Air Weight: 176 lb 2.389 oz Body Mass Index (BMI) 29.2 Intake & Output: Intake and Output for Last 24 Hours 06/19/24 06/20/24 06/21/24 03:59 03:59 03:59 Intake Total 880 / 880 2715 / 2715 805 / 805 Output Total 500 / 500 850 / 850 1350 / 1350 Balance 380 / 380 1865 / 1865 -545 / -545 Lab / Micro Data 06/20/24 05:50 06/20/24 05:50 Labs: Laboratory Results - last 24 hr 06/20/24 05:50: WBC 5.7, RBC 4.00 L, Hgb 11.3 L, Hct 36.1 L, MCV 90.3, MCH 28.3, MCHC 31.3 L, RDW Std Deviation 54.8 H, RDW Coeff of Hattie 16.5 H, Plt Count 126 L, MPV 10.2, Immature Gran % (Auto) 0.400, Neut % (Auto) 86.7 H, Lymph % (Auto) 3.9 L, [place] % (Auto) 5.8, Eos % (Auto) 3.0, Baso % (Auto) 0.2, Absolute Neuts (auto) 4.9, Absolute Lymphs (auto) 0.22 L, Nucleated RBC % 0, Sodium 136, Potassium 3.8, Chloride 104, Carbon Dioxide 28.0, Anion Gap 4 L, BUN 13, Creatinine 1.10, Estim Creat Clear Calc 64.34, Est GFR (MDRD) Af Amer 86, Est GFR (MDRD) Non-Af 71, BUN/Creatinine Ratio 11.8, Glucose 110 H, Calcium 8.4 L, Phosphorus 3.1, Magnesium 2.0, Iron 17 L, TIBC 208 L, Iron Saturation 8.2 L, Ferritin 456 H, Total Bilirubin 0.80, AST 166 H, ALT 447 H, Alkaline Phosphatase 192 H, Total Protein 5.6 L, Albumin 2.5 L, Globulin 3.1, Albumin/Globulin Ratio 0.8 L, Vitamin B12 585 06/20/24 09:32: Vancomycin Trough 13.6 Micro: Microbiology 06/18/24 18:25 Urine, Clean Catch Urine Culture - Final Enterococcus faecalis 06/19/24 00:05 Wound - Back Gram Stain - Final 06/19/24 00:05 Wound - Back Skin and Soft Tissue MRSA/MSSA (PCR - Final Meth. resistant Staph. aureus 06/18/24 18:25 Mucosa - Nose SARS-CoV-2, Influenza & RSV (PCR) - Final Physical Exam Narrative General: Alert, Oriented x3, Cooperative, No apparent distress HEENT: Atraumatic, PERRLA, EOMI, Normocephalic Oral: Moist Mucosa Neck: Supple, No JVD Lungs: Clear to auscultation, Normal air movement, No rhonchi, No wheeze, No rales Cardiovascular: Regular rate, Regular Rhythm, Normal S1, Normal S2, No murmurs Abdomen: Soft, Non Tender, Non-Distended, No Hepato-splenomegaly Extremities: No edema, Capillary Refill Less than 3 Seconds Skin: Wounds on back with mild surrounding erythema Musculoskeletal: No Tenderness to Palpation of Joints or Extremities Neurological: No focal neurological deficits, Motor Exam 5/5 strength throughout, Sensory exam intact to light touch and pain Psych/Mental Status: Flat Assessment & Plan Assessment/Plan (1) Other postoperative infection: PLAN: Plan 1. 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 His previous spine surgery was for tumor resection and currently has chronic wounds ? He does have a history of MRSA ? Continue with antibiotics ? Plan for OR on Wednesday with repeat operative intervention next Wednesday ? Right upper quadrant ultrasound shows steatosis with no signs of gallbladder illness, could be combination of infection and steatosis leading to the transaminitis elevation ? No SUSAN ? Continue to follow-up as an outpatient with oncology 2. Essential HTN ? Blood pressures are stable ? Continue with home blood pressure medications 3. Hypothyroidism ? Stable ? Continue with Synthroid 4. History of VTE ? Given the planned intervention will hold Eliquis, transition to therapeutic Lovenox ? Last dose 06/18/2024 5. GERD ? Stable ? Continue with PPI DVT: Therapeutic Lovenox Charges/Coding Visit Charges Inpatient E&M: 54751 Subs Hosp L2
[2024-06-20] MEDS: MELATONIN 3 MG TABLET 6 MG PO (20:56)
[2024-06-20] MEDS: Enoxaparin 80 MG/0.8 ML Syringe SC (20:57)
[2024-06-21 06:09] LABS: Prealbumin 9 mg/dL (10-36)
--- NOTE | 2024-06-21 07:40 | PN.SURG_ITS ---
Subjective Subjective HPI RACHEAL BURLEOSN, is a 68 M with a history of multiple myeloma with a pathologic compression fracture of the T-spine (T2 - T7) leading to severe lower extremity weakness (can walk but only with a walker) who underwent fusion of his cervical/thoracic spine and October 2022 followed by radiation therapy in December 2022 and adjuvant chemotherapy in the summer 2022 who was admitted last night from a local assisted living facility for a fever workup. The internal medicine consulted me regarding a thoracic wound that has been draining. Patient reports that he has had a wound ever since the spring 2022 around the time when he was receiving radiation and did not have any subsequent surgery following the fusion. His spine surgeon at [facility] does not have any further plans for the wound or the hardware per patient report. Patient has been following with the wound care center in [place] and they have been placing of wound VAC over the wound until last week. He has since been doing iodoform packing in the wounds. He has not had any recent advanced imaging. In the ED his chest x-ray was unremarkable and he is not having any shortness of breath or trouble breathing. His urinalysis was positive for nitrites (he has a Humphries), and urine cultures are pending. Today on the floor he is afebrile (albeit febrile to 103 yesterday) with stable VS. He is on Vancomycin and Zosyn. His WBC is 5.5, hemoglobin is 11.4, and his platelets are 126. He has a transaminitis that was not previously diagnosed (AST 540 and ALT 636 with INR of 1.3). Of note he was also diagnosed with bilateral lower extremity DVTs during his initial hospitalization for the pathologic compression fractures and has been on Eliquis as a home medication ever since. He follows with Dr. Perez at our hospital for his cancer care. He was last seen in April 2024 for follow-up of his multiple myeloma. He is on systemic daratumumab maintenance. He also takes acyclovir and Bactrim for prophylaxis. The recommendations from hematology was to hold anticoagulation 48 hours prior to any invasive procedure but to continue DVT prophylaxis long-term as he has malignancy induced hypercoagulability. 20 Jun 2024: I talked to the patient this morning about his condition. He understands that he is a chronic wound that extends likely down to the hardware, and that the hardware is obligatory. I talked to him extensively today about surgery in conjunction with Dr. Menchaca. Of note patient's sister lives in [facility] ([place]). Patient has been at his rehab facility for about a year. He would like to get out of the rehab facility and go live with his sister, and he is working on progressing with his physical therapy in order to be discharged. His father also had a blood clot, but it was during a hospitalization where he was immobilized for prolonged period of time near the end of his life. The patient does not report any history of known clotting disorders in his family. Of note, patient said today I do not want to live with this wound, and I would like to surgery to fix it. CURRENT ENCOUNTER, 21 Jun 2024: Patient feeling about the same and endorses good dressing changes. I had a family meeting with him and his sister and we discussed extensively the operative plans. Objective Data Objective Data Vital Signs: Vital Signs Temp Pulse Resp BP Pulse Ox O2 Del Method 98.0 F 80 16 126/67 H 92 Room Air 06/20/24 21:59 06/20/24 21:59 06/20/24 21:59 06/20/24 21:59 06/20/24 21:59 06/20/24 22:00 Oxygen Delivery Method Room Air Weight: 176 lb 2.389 oz Body Mass Index (BMI) 29.2 Intake & Output: Intake and Output for Last 24 Hours 06/19/24 06/20/24 06/21/24 23:59 23:59 23:59 Intake Total 3445 / 3445 1655 / 1895 290 / 290 Output Total 1350 / 1350 1350 / 1850 500 / 500 Balance 2095 / 2095 305 / 45 -210 / -210 Lab / Micro Data 06/20/24 05:50 06/20/24 05:50 Labs: Laboratory Results - last 24 hr 06/20/24 05:50: Phosphorus 3.1, Magnesium 2.0, Iron 17 L, TIBC 208 L, Iron Saturation 8.2 L, Ferritin 456 H, Prealbumin 9 L, Vitamin B12 585 06/20/24 09:32: Vancomycin Trough 13.6 Micro: Microbiology 06/18/24 18:25 Urine, Clean Catch Urine Culture - Final Enterococcus faecalis 06/19/24 00:05 Wound - Back Gram Stain - Final 06/19/24 00:05 Wound - Back Skin and Soft Tissue MRSA/MSSA (PCR - Final Meth. resistant Staph. aureus 06/18/24 18:25 Mucosa - Nose SARS-CoV-2, Influenza & RSV (PCR) - Final Physical Exam Narrative Thoracic spine Persistent wounds with drainage (x 2) on the thoracic/lower cervical spine that are 1 x 1 cm (serosanguineous fluid, no aguila purulence) with surrounding skin with the stigmata of radiation dermatitis. No areas of fluctuance (nondraining areas). The areas are slightly tender to palpation. Const alert and oriented x3 Constitutional Narrative: Able to give excellent history Eyes EOMs intact bilaterally Chest Chest Narrative: Right upper extremity port Resp normal respiratory effort Cardio Rate: regular rate Rhythm: regular rhythm GI soft to palpation Extremity no calf tenderness Extremity Narrative: Left lower extremity with some swelling compared to the right, but no redness Neuro CN's II-XII intact bilaterally Psych mental status grossly normal Assessment & Plan Assessment/Plan (1) Open wound of tissue overlying spine: QUALIFIERS: Encounter type: initial encounter Laterality: u nspecified laterality Qualified Code(s): S21.209A - Unspecified open wound of unspecified back wall of thorax without penetration into thoracic cavity, initial encounter (2) Radiation adverse effect: QUALIFIERS: Encounter type: sequela Qualified Code(s): T66.XXXS - Radiation sickness, unspecified, sequela PLAN: Plan I spoke with Dr. Perez, Mr. Burleson's business services intern/oncologist. He reports that the patient has had excellent response to chemoradiation, and his prognosis is fair as he may live for many years with the multiple myeloma as a chronic illness. He suggest that we proceed with the surgery if indicated from a surgical standpoint. I talked to Dr. Menchaca from spine surgery. The hardware is obligatory, and cannot be removed. Dr. Menchaca believes the hardware is stable, but that the hardware is likely at the base of the wound. Our plan is to perform an incision and drainage of the wound together in the operating room sometime next week to washout the wound and expose any infection. We will then take deep soft tissue/bone cultures and place an irrigating wound VAC (likely with Dakin's or Vashe) and repeat this a couple of times to clean the wound as best as possible, and work with ID on potential chronic suppressive antibiotic course. I talked to Mr. Burleson extensively today about surgery. He understands the risks and benefits, including the risk bleeding, infection, damage to surrounding structures, surgical site dehiscence and wound formation, need for wound care (f ailure to clean the base of the wound and get complete disinfection of the hardware and thus development of chronic wounds in the future and chronic infections in the future), flap failure, need for repeat operations, failure to obtain the desired result, DVT/PE (Caprini of 9), and the risks of anesthesia including . All of their questions were answered, and they agreed to proceed with surgery. He is accepting of the above-noted risks including risk of VTE. Talked about donor sites for the flap, including local muscle flaps (trapezius muscle). If local options fail, I discussed with him free tissue transfer (vastus lateralis) and he understood this plan and all questions were answered. He would like to proceed. Plan from 21 Jun 2024: During the family meeting with the patient's sister, I reinforced that this will be done in multiple stages with repeat surgeries. They understand the plan for muscle flap as first-line for coverage of the defect but that we may need to use a free tissue transfer if we are unable to get the wound healed with local muscle flaps, especially in the setting of radiation. They understand the risks of a blood clot during this process (we calculated Caprini score together, which was 9, discussed how this means an ~11% VTE risk). They were accepting of the risks and wanted to proceed with the surgery. We are scheduled for 26 June 2024, for a joint case with Dr. Menchaca. Primary team has held [employer]Rates (now on Embrace). They're aware of surgical plans for 26 Jun 2024.
[2024-06-21 08:17] VITALS: O2SAT 93
--- NOTE | 2024-06-21 09:58 | PCM.PN.HOSP ---
Subjective Subjective Doing well, no issues overnight. Awaiting surgery on Wednesday Objective Data Objective Data Vital Signs: Vital Signs Temp Pulse Resp BP Pulse Ox O2 Del Method 98.0 F 80 16 126/67 H 93 Room Air 06/20/24 21:59 06/20/24 21:59 06/20/24 21:59 06/20/24 21:59 06/21/24 08:17 06/21/24 08:17 Oxygen Delivery Method Room Air Weight: 176 lb 2.389 oz Body Mass Index (BMI) 29.2 Intake & Output: Intake and Output for Last 24 Hours 06/20/24 06/21/24 06/22/24 03:59 03:59 03:59 Intake Total 2715 / 2715 1845 / 1845 50 / 50 Output Total 850 / 850 1850 / 1850 Balance 1865 / 1865 -5 / -5 50 / 50 Lab / Micro Data 06/20/24 05:50 06/20/24 05:50 Labs: Laboratory Results - last 24 hr 06/20/24 05:50: Phosphorus 3.1, Magnesium 2.0, Iron 17 L, TIBC 208 L, Iron Saturation 8.2 L, Ferritin 456 H, Prealbumin 9 L, Vitamin B12 585 06/20/24 09:32: Vancomycin Trough 13.6 Micro: Microbiology 06/19/24 00:05 Wound - Back Gram Stain - Final 06/19/24 00:05 Wound - Back Wound Culture - Preliminary Staphylococcus aureus 06/19/24 00:05 Wound - Back Skin and Soft Tissue MRSA/MSSA (PCR - Final Meth. resistant Staph. aureus 06/18/24 18:25 Urine, Clean Catch Urine Culture - Final Enterococcus faecalis 06/18/24 18:25 Mucosa - Nose SARS-CoV-2, Influenza & RSV (PCR) - Final Physical Exam Narrative General: Alert, Oriented x3, Cooperative, No apparent distress HEENT: Atraumatic, PERRLA, EOMI, Normocephalic Oral: Moist Mucosa Neck: Supple, No JVD Lungs: Clear to auscultation, Normal air movement, No rhonchi, No wheeze, No rales Cardiovascular: Regular rate, Regular Rhythm, Normal S1, Normal S2, No murmurs Abdomen: Soft, Non Tender, Non-Distended, No Hepato-splenomegaly Extremities: No edema, Capillary Refill Less than 3 Seconds Skin: Wounds on back with mild surrounding erythema Musculoskeletal: No Tenderness to Palpation of Joints or Extremities Neurological: No focal neurological deficits, Motor Exam 5/5 strength throughout, Sensory exam intact to light touch and pain Psych/Mental Status: Normal affect Assessment & Plan Assessment/Plan (1) Other postoperative infection: PLAN: Plan 1. 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 His previous spine surgery was for tumor resection and currently has chronic wounds ? He does have a history of MRSA ? Continue with antibiotics ? Plan for OR on Wednesday with repeat operative intervention next Wednesday ? Right upper quadrant ultrasound shows steatosis with no signs of gallbladder illness, could be combination of infection and steatosis leading to the transaminitis elevation ? No SUSAN ? Continue to follow-up as an outpatient with oncology ? Currently no change will continue to monitor 2. Essential HTN ? Blood pressures are stable ? Continue with home blood pressure medications 3. Hypothyroidism ? Stable ? Continue with Synthroid 4. History of VTE ? Given the planned intervention will hold Eliquis, transition to therapeutic Lovenox ? Last dose 06/18/2024 5. GERD ? Stable ? Continue with PPI DVT: Therapeutic Lovenox Charges/Coding Visit Charges Inpatient E&M: 24208 Subs Hosp L1
[2024-06-21 09:59] VITALS: BP 123/70; PULSE 72; RESP 14; TEMP 37.4; O2SAT 92
[2024-06-21] MEDS: Baclofen 10 MG Tablet 5 MG PO ×2 (10:01→22:06)
[2024-06-21] MEDS: Pantoprazole Sodium 20 MG Tablet PO (10:02)
[2024-06-21] MEDS: Senna/Docusate Sodium 1 Tablet PO ×2 (10:02→22:06)
[2024-06-21] MEDS: Acyclovir 200 MG Capsule 400 MG PO ×2 (10:03→22:19)
[2024-06-21] MEDS: amLODIPine 10 MG Tablet PO (10:03)
[2024-06-21] MEDS: Ascorbic Acid 500 MG Tablet 1000 MG PO ×2 (10:03→22:07)
[2024-06-21 10:04] VITALS: PULSE 72
[2024-06-21] MEDS: Metoprolol Tartrate 50 MG Tablet PO ×2 (10:04→22:07)
[2024-06-21] MEDS: Acetaminophen 325 MG Tablet 650 MG PO (10:04)
[2024-06-21] MEDS: Ferrous Sulfate 325 MG Tablet PO (10:05)
[2024-06-21] MEDS: Enoxaparin 80 MG/0.8 ML Syringe SC ×2 (10:05→22:11)
[2024-06-21] MEDS: Menthol/Lanolin/Calamine/Znox 113 GM Tube 1 APPLIC TOPICAL ×4 (10:05→22:08)
[2024-06-21] MEDS: Polyethylene Glycol 3350 17 GM PACKET PO (10:06)
[2024-06-21] MEDS: Vancomycin HCl 1,250 MG in 0.9% Normal Saline (250mL Bag) 250 ML 167 MG IV (10:12)
--- NOTE | 2024-06-21 15:25 | CASEMGMT ---
Social Work Pt has HCPOA on file at [facility] naming his sister Fabiola Pool as medical decision maker. BRAD Pagan
--- NOTE | 2024-06-21 15:40 | CASEMGMT ---
LYNETTE called Valarie from [facility] and let her know that SW received her voice mail. SW let her know patient is still in hospital and unsure of d/c date at this time. Jaclyn HAIDER
[2024-06-21] MEDS: Gabapentin 100 MG Capsule PO ×2 (15:54→22:07)
[2024-06-21] MEDS: Piperacil/Tazobactam 3.375 GM in 0.9% Normal Saline (50mL MB+) 50 ML IV ×2 (15:54→22:09)
[2024-06-21 16:06] VITALS: BP 112/72; PULSE 63; RESP 15; TEMP 36.6; O2SAT 93
[2024-06-21 22:00] VITALS: BP 136/68; PULSE 72; RESP 18; TEMP 36.7; O2SAT 92
[2024-06-21] MEDS: MELATONIN 3 MG TABLET 6 MG PO (22:06)
[2024-06-21 22:07] VITALS: PULSE 72
[2024-06-21] MEDS: Vancomycin Trough/Random Due 1 LAB MC (22:10)
[2024-06-21 22:26] LABS: Vancomycin, Trough Level 22.7 ug/mL (5.0-15.0)
--- NOTE | 2024-06-21 23:06 | PCM.RX.CS ---
Consult Antibiotic Management Pharmacy has been consulted to manage selected antibiotic: Vancomycin Type of Intervention Type of Consult: Follow-up Labs Labs: Sodium 136 mmol/L (136-145) 06/20/24 05:50 Potassium 3.8 mmol/L (3.5-5.1) 06/20/24 05:50 Chloride 104 mmol/L (98-107) 06/20/24 05:50 Carbon Dioxide 28.0 mmol/L (21.0-32.0) 06/20/24 05:50 Anion Gap 4 (5-15) L 06/20/24 05:50 BUN 13 mg/dL (7-18) 06/20/24 05:50 Creatinine 1.10 mg/dL (0.70-1.30) 06/20/24 05:50 Est GFR (MDRD) Af Amer 86 mL/min (>60) 06/20/24 05:50 Est GFR (MDRD) Non-Af 71 mL/min (>60) 06/20/24 05:50 BUN/Creatinine Ratio 11.8 RATIO (10-20) 06/20/24 05:50 Glucose 110 mg/dL (74-106) H 06/20/24 05:50 Vancomycin Trough 22.7 ug/mL (5.0-15.0) H 06/21/24 21:58 Microbiology Microbiology: Microbiology 06/18/24 18:25 Blood Culture (Wb) - Port Blood Culture - Preliminary No growth in 48 hours. 06/19/24 00:05 Wound - Back Gram Stain - Final 06/19/24 00:05 Wound - Back Wound Culture - Preliminary Staphylococcus aureus Gram positive cesar 06/19/24 00:05 Wound - Back Skin and Soft Tissue MRSA/MSSA (PCR - Final Meth. resistant Staph. aureus 06/18/24 18:25 Urine, Clean Catch Urine Culture - Final Enterococcus faecalis 06/18/24 18:25 Mucosa - Nose SARS-CoV-2, Influenza & RSV (PCR) - Final Dosing Weight Weight used for dosin.9 kg Estimated Creatinine Clearance Estimated Creatinine Clearance: 64 Goal Trough Goal Trough: 15-20 mcg/mL Pharmacy Plan for Drug Dosing Pharmacy Plan for Drug Dosing: Vancomycin trough level of 22.7, drawn 11.75hrs post-dose, was above the target range of 15-20. Will suspend current dosing, and will draw a random vanco level in 12 hours to determine further orders. Pharmacy Service will continue to monitor and adjust dosing as required. Follow-Up Labs Follow-Up Labs: Trough: Vancomycin (random) Date/Time Labs Ordered Labs to be done on [date and time ordered]: 06/22/24 @1000 random
[2024-06-22] VITALS (7 sets, daily range): BP systolic 104–127; BP diastolic 60–68; PULSE 60–79; RESP 16–18; TEMP 36.2–36.9; O2SAT 92–95
[2024-06-22] MEDS: Piperacil/Tazobactam 3.375 GM in 0.9% Normal Saline (50mL MB+) 50 ML IV (05:57)
[2024-06-22] MEDS: Levothyroxine 100 MCG Tablet PO (06:00)
[2024-06-22] MEDS: Gabapentin 100 MG Capsule PO ×3 (06:00→21:22)
--- NOTE | 2024-06-22 07:04 | PCM.PN.SRG ---
Subjective Subjective Talked to Mr. Barron this morning. He and his sister were wondering about the length of surgery on Wednesday, and I estimated 2 hours. No other questions. Endorses good dressing changes by the nursing staff. Objective Data Objective Data Vital Signs: Vital Signs Temp Pulse Resp BP Pulse Ox O2 Del Method 97.2 F L 79 17 127/68 H 94 Room Air 06/22/24 04:00 06/22/24 04:00 06/22/24 04:00 06/22/24 04:00 06/22/24 04:00 06/22/24 04:00 Oxygen Delivery Method Room Air Weight: 180 lb 12.465 oz Body Mass Index (BMI) 30.0 Intake & Output: Intake and Output for Last 24 Hours 06/20/24 06/21/24 06/22/24 23:59 23:59 23:59 Intake Total 1655 / 1895 1955 / 1955 50 / 50 Output Total 1350 / 1850 1250 / 1250 Balance 305 / 45 705 / 705 50 / 50 Lab / Micro Data 06/20/24 05:50 06/20/24 05:50 Labs: Laboratory Results - last 24 hr 06/21/24 21:58: Vancomycin Trough 22.7 H Micro: Microbiology 06/18/24 18:25 Blood Culture (Wb) - Port Blood Culture - Preliminary No growth in 48 hours. 06/19/24 00:05 Wound - Back Gram Stain - Final 06/19/24 00:05 Wound - Back Wound Culture - Preliminary Staphylococcus aureus Gram positive cesar 06/19/24 00:05 Wound - Back Skin and Soft Tissue MRSA/MSSA (PCR - Final Meth. resistant Staph. aureus 06/18/24 18:25 Urine, Clean Catch Urine Culture - Final Enterococcus faecalis 06/18/24 18:25 Mucosa - Nose SARS-CoV-2, Influenza & RSV (PCR) - Final Physical Exam Narrative Thoracic spine Persistent wounds with drainage (x 2) on the thoracic/lower cervical spine that are 1 x 1 cm (serosanguineous fluid, no aguila purulence) with surrounding skin with the stigmata of radiation dermatitis. No areas of fluctuance (nondraining areas). The areas are slightly tender to palpation. Photo from consultation, 19 Jun 2024: Const alert and oriented x3 Constitutional Narrative: Able to give excellent history Eyes EOMs intact bilaterally Chest Chest Narrative: Right upper extremity port Resp normal respiratory effort Cardio Rate: regular rate Rhythm: regular rhythm GI soft to palpation Extremity no calf tenderness Extremity Narrative: Left lower extremity with some swelling compared to the right, but no redness Neuro CN's II-XII intact bilaterally Psych mental status grossly normal Assessment & Plan Assessment/Plan (1) Open wound of tissue overlying spine: QUALIFIERS: Encounter type: initial encounter Laterality: unspecified laterality Qualified Code(s): S21.209A - Unspecified open wound of unspecified back wall of thorax without penetration into thoracic cavity, initial encounter (2) Radiation adverse effect: QUALIFIERS: Encounter type: sequela Qualified Code(s): T66.XXXS - Radiation sickness, unspecified, sequela PLAN: Plan I spoke with Dr. Perez, Mr. Barron's visitor services specialist/oncologist. He reports that the patient has had excellent response to chemoradiation, and his prognosis is fair as he may live for many years with the multiple myeloma as a chronic illness. He suggest that we proceed with the surgery if indicated from a surgical standpoint. I talked to Dr. Menchaca from spine surgery. The hardware is obligatory, and cannot be removed. Dr. Menchaca believes the hardware is stable, but that the hardware is likely at the base of the wound. Our plan is to perform an incision and drainage of the wound together in the operating room sometime next week to washout the wound and expose any infection. We will then take deep soft tissue/bone cultures and place an irrigating wound VAC (likely with Dakin's or Vashe) and repeat this a couple of times to clean the wound as best as possible, and work with ID on potential chronic suppressive antibiotic course. I talked to Mr. Barron extensively today about surgery. He understands the risks and benefits, including the risk bleeding, infection, damage to surrounding structures, surgical site dehiscence and wound formation, need for wound care (failure to clean the base of the wound and get complete disinfection of the hardware and thus development of chronic wounds in the future and chronic infections in the future), flap failure, need for repeat operations, failure to obtain the desired result, DVT/PE (Caprini of 9), and the risks of anesthesia including . All of their questions were answered, and they agreed to proceed with surgery. He is accepting of the above-noted risks including risk of VTE. Talked about donor sites for the flap, including local muscle flaps (trapezius muscle). If local options fail, I discussed with him free tissue transfer (vastus lateralis) and he understood this plan and all questions were answered. He would like to proceed. Plan from 21 Jun 2024: During the family meeting with the patient's sister, I reinforced that this will be done in multiple stages with repeat surgeries. They understand the plan for muscle flap as first-line for coverage of the defect but that we may need to use a free tissue transfer if we are unable to get the wound healed with local muscle flaps, especially in the setting of radiation. They understand the risks of a blood clot during this process (we calculated Caprini score together, which was 9, discussed how this means an ~11% VTE risk). They were accepting of the risks and wanted to proceed with the surgery. We are scheduled for Wednesday, 26 June 2024, for a joint case with Dr. Menchaca. Plan from 22 Jun 2024: Primary team has held [employer] (now on Miyaobabei). They're aware of surgical plans for Wednesday, 26 Jun 2024, and repeat wash out on 30 Jun 2024. Likely reconstruction the following week. Charges/Coding Visit Charges Inpatient E&M: 44984 Subs Hosp L1
[2024-06-22] MEDS: Senna/Docusate Sodium 1 Tablet PO ×2 (09:06→21:21)
[2024-06-22] MEDS: Baclofen 10 MG Tablet 5 MG PO ×2 (09:06→21:21)
[2024-06-22] MEDS: Acyclovir 200 MG Capsule 400 MG PO ×2 (09:07→21:21)
[2024-06-22] MEDS: Ascorbic Acid 500 MG Tablet 1000 MG PO ×2 (09:08→21:22)
[2024-06-22] MEDS: Ferrous Sulfate 325 MG Tablet PO (09:08)
[2024-06-22] MEDS: Polyethylene Glycol 3350 17 GM PACKET PO (09:09)
[2024-06-22] MEDS: Enoxaparin 80 MG/0.8 ML Syringe SC ×2 (09:09→21:20)
[2024-06-22] MEDS: Metoprolol Tartrate 50 MG Tablet PO ×2 (09:09→21:19)
[2024-06-22] MEDS: Pantoprazole Sodium 20 MG Tablet PO (09:10)
[2024-06-22] MEDS: Menthol/Lanolin/Calamine/Znox 113 GM Tube 1 APPLIC TOPICAL ×3 (09:10→21:22)
--- NOTE | 2024-06-22 10:37 | PCM.RX.CS ---
Consult Antibiotic Management Pharmacy has been consulted to manage selected antibiotic: Vancomycin Type of Intervention Type of Consult: Follow-up Labs Labs: Sodium 136 mmol/L (136-145) 06/20/24 05:50 Potassium 3.8 mmol/L (3.5-5.1) 06/20/24 05:50 Chloride 104 mmol/L (98-107) 06/20/24 05:50 Carbon Dioxide 28.0 mmol/L (21.0-32.0) 06/20/24 05:50 Anion Gap 4 (5-15) L 06/20/24 05:50 BUN 13 mg/dL (7-18) 06/20/24 05:50 Creatinine 1.10 mg/dL (0.70-1.30) 06/20/24 05:50 Est GFR (MDRD) Af Amer 86 mL/min (>60) 06/20/24 05:50 Est GFR (MDRD) Non-Af 71 mL/min (>60) 06/20/24 05:50 BUN/Creatinine Ratio 11.8 RATIO (10-20) 06/20/24 05:50 Glucose 110 mg/dL (74-106) H 06/20/24 05:50 Vancomycin Trough 22.7 ug/mL (5.0-15.0) H 06/21/24 21:58 Random Vancomycin 15.0 ug/mL (0.0-15.0) 06/22/24 09:42 Microbiology Microbiology: Microbiology 06/19/24 00:05 Wound - Back Gram Stain - Final 06/19/24 00:05 Wound - Back Wound Culture - Final Meth. resistant Staph. aureus Gram positive cesar 06/19/24 00:05 Wound - Back Skin and Soft Tissue MRSA/MSSA (PCR - Final Meth. resistant Staph. aureus 06/18/24 18:25 Blood Culture (Wb) - Port Blood Culture - Preliminary No growth in 48 hours. 06/18/24 18:25 Urine, Clean Catch Urine Culture - Final Enterococcus faecalis 06/18/24 18:25 Mucosa - Nose SARS-CoV-2, Influenza & RSV (PCR) - Final Goal Trough Goal Trough: 15-20 mcg/mL Pharmacy Plan for Drug Dosing Pharmacy Plan for Drug Dosing: VANCOMYCIN LEVEL RECEIVED Current Vancomycin Dose: ON HOLD- was on 1250mg IV q12hr. last dose 06/21 @1012 Number of Doses Received: Scheduled dosing ON HOLD Vancomycin Level: 15 Hours Since Last Dose: 23.5hr Renal Function: 1.1 Renal Function Trend: stable Lab/Micro: Wcx (+) MRSA, other organisms Vancomycin Plan/Comments: Patient had a random trough drawn which resulted in a value of 15 (goal 15-20). Patient is now within therapeutic goal so vancomycin will be restarted at this time. Will start patient on 1250mg IV Q24hr to start 06/22/24 @1100 Pending Level: 06/24/24 @1030, prior to 3rd dose of new regimen Pharmacy Service will continue to monitor and adjust dosing as required.
--- NOTE | 2024-06-22 10:49 | PCM.PN.ID ---
Physical Exam Narrative Feeling ok, no fever, no n/v/d. Pain controlled. Const alert and no apparent distress Resp normal air movement and clear to auscultation bilaterally Cardio regular rate and regular rhythm GI soft to palpation, non-tender and non-distended Skin Skin Narrative: no new rash ID ID: Route of nutrition/ use of supplements: [] Nutritional Intake: [] IV Site: [] Humphries Catheter: [] Assessment & Plan Assessment/Plan (1) Open wound of tissue overlying spine: QUALIFIERS: Encounter type: initial encounter Laterality: unspecified laterality Qualified Code(s): S21.209A - Unspecified open wound of unspecified back wall of thorax without penetration into thoracic cavity, initial encounter PLAN: wound cx with staph aureus and GPR (MRSA pcr positive), seen by plastic surgery and spine surgery, OR planned for next week. On vanc/zosyn for now. ucx with small growth enterococcus. Will narrow zosyn to unasyn. Will follow (2) Paraplegia:
[2024-06-22] MEDS: Vancomycin HCl 1,250 MG in 0.9% Normal Saline (250mL Bag) 250 ML 167 MG IV (11:29)
--- NOTE | 2024-06-22 12:24 | PCM.PN.HOSP ---
Subjective Subjective Doing well, no issues overnight Objective Data Objective Data Vital Signs: Vital Signs Temp Pulse Resp BP Pulse Ox O2 Del Method 98.0 F 62 18 104/60 92 Room Air 06/22/24 09:23 06/22/24 09:23 06/22/24 09:23 06/22/24 09:23 06/22/24 09:23 06/22/24 09:23 Oxygen Delivery Method Room Air Weight: 180 lb 12.465 oz Body Mass Index (BMI) 30.0 Intake & Output: Intake and Output for Last 24 Hours 06/21/24 06/22/24 06/23/24 03:59 03:59 03:59 Intake Total 1845 / 1845 1765 / 1765 50 / 50 Output Total 1850 / 1850 750 / 750 Balance -5 / -5 1015 / 1015 50 / 50 Lab / Micro Data 06/20/24 05:50 06/20/24 05:50 Labs: Laboratory Results - last 24 hr 06/21/24 21:58: Vancomycin Trough 22.7 H 06/22/24 09:42: Random Vancomycin 15.0 Micro: Microbiology 06/19/24 00:05 Wound - Back Gram Stain - Final 06/19/24 00:05 Wound - Back Wound Culture - Final Meth. resistant Staph. aureus Gram positive cesar 06/19/24 00:05 Wound - Back Skin and Soft Tissue MRSA/MSSA (PCR - Final Meth. resistant Staph. aureus 06/18/24 18:25 Blood Culture (Wb) - Port Blood Culture - Preliminary No growth in 48 hours. 06/18/24 18:25 Urine, Clean Catch Urine Culture - Final Enterococcus faecalis 06/18/24 18:25 Mucosa - Nose SARS-CoV-2, Influenza & RSV (PCR) - Final Physical Exam Narrative General: Alert, Oriented x3, Cooperative, No apparent distress HEENT: Atraumatic, PERRLA, EOMI, Normocephalic Oral: Moist Mucosa Neck: Supple, No JVD Lungs: Clear to auscultation, Normal air movement, No rhonchi, No wheeze, No rales Cardiovascular: Regular rate, Regular Rhythm, Normal S1, Normal S2, No murmurs Abdomen: Soft, Non Tender, Non-Distended, No Hepato-splenomegaly Extremities: No edema, Capillary Refill Less than 3 Seconds Skin: Wounds on back with mild surrounding erythema Musculoskeletal: No Tenderness to Palpation of Joints or Extremities Neurological: No focal neurological deficits, Motor Exam 5/5 strength throughout, Sensory exam intact to light touch and pain Psych/Mental Status: Normal affect Assessment & Plan Assessment/Plan (1) Other postoperative infection: PLAN: Plan 1. 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 His previous spine surgery was for tumor resection and currently has chronic wounds ? He does have a history of MRSA ? Continue with antibiotics ? Plan for OR on Wednesday with repeat operative intervention next Wednesday ? Right upper quadrant ultrasound shows steatosis with no signs of gallbladder illness, could be combination of infection and steatosis leading to the transaminitis elevation ? No SUSAN ? Continue to follow-up as an outpatient with oncology ? Currently no change will continue to monitor 2. Essential HTN ? Blood pressures are stable ? Continue with home blood pressure medications 3. Hypothyroidism ? Stable ? Continue with Synthroid 4. History of VTE ? Given the planned intervention will hold Eliquis, transition to therapeutic Lovenox ? Last dose 06/18/2024 5. GERD ? Stable ? Continue with PPI DVT: Therapeutic Lovenox Charges/Coding Visit Charges Inpatient E&M: 84439 Subs Hosp L1
[2024-06-22] MEDS: Ampicillin/Sulbactam 3 GM in 0.9% Normal Saline (100mL MB+) 100 ML IV ×2 (13:32→21:32)
--- NOTE | 2024-06-22 15:32 | CASEMGMT ---
Discharge Planning Updates faxed to [facility]. Fax confirmation rec'd. Maddi Soni DC Planning Asst.
[2024-06-22] MEDS: MELATONIN 3 MG TABLET 6 MG PO (21:21)
[2024-06-23] VITALS (8 sets, daily range): BP systolic 102–131; BP diastolic 58–68; PULSE 55–60; RESP 16–18; TEMP 36.6–36.9; O2SAT 92–98; BMI 30.1
[2024-06-23] MEDS: Menthol/Lanolin/Calamine/Znox 113 GM Tube 1 APPLIC TOPICAL ×3 (05:15→22:03)
[2024-06-23] MEDS: Gabapentin 100 MG Capsule PO ×3 (05:15→22:04)
[2024-06-23] MEDS: Levothyroxine 100 MCG Tablet PO (05:16)
[2024-06-23] MEDS: Ampicillin/Sulbactam 3 GM in 0.9% Normal Saline (100mL MB+) 100 ML IV ×3 (05:16→22:08)
[2024-06-23] MEDS: Ferrous Sulfate 325 MG Tablet PO (09:27)
[2024-06-23] MEDS: Baclofen 10 MG Tablet 5 MG PO ×2 (09:28→22:04)
[2024-06-23] MEDS: Senna/Docusate Sodium 1 Tablet PO ×2 (09:28→22:04)
[2024-06-23] MEDS: Acyclovir 200 MG Capsule 400 MG PO ×2 (09:28→22:04)
[2024-06-23] MEDS: Pantoprazole Sodium 20 MG Tablet PO (09:28)
[2024-06-23] MEDS: Enoxaparin 80 MG/0.8 ML Syringe SC ×2 (09:28→22:08)
[2024-06-23] MEDS: Ascorbic Acid 500 MG Tablet 1000 MG PO ×2 (09:28→22:04)
[2024-06-23] MEDS: Polyethylene Glycol 3350 17 GM PACKET PO (09:33)
[2024-06-23] MEDS: Metoprolol Tartrate 50 MG Tablet PO ×2 (09:41→22:27)
[2024-06-23] MEDS: amLODIPine 10 MG Tablet PO (09:42)
[2024-06-23] MEDS: Vancomycin HCl 1,250 MG in 0.9% Normal Saline (250mL Bag) 250 ML 167 MG IV (11:28)
--- NOTE | 2024-06-23 11:36 | PCM.PN.HOSP ---
Subjective Subjective No issues overnight Objective Data Objective Data Vital Signs: Vital Signs Temp Pulse Resp BP Pulse Ox O2 Del Method 98.1 F 59 L 18 109/60 92 Room Air 06/23/24 09:57 06/23/24 09:57 06/23/24 09:57 06/23/24 09:57 06/23/24 09:57 06/23/24 09:57 Oxygen Delivery Method Room Air Weight: 181 lb 3.52 oz Body Mass Index (BMI) 30.1 Intake & Output: Intake and Output for Last 24 Hours 06/22/24 06/23/24 06/24/24 03:59 03:59 03:59 Intake Total 1765 / 1765 1509 / 1509 112 / 112 Output Total 750 / 750 1850 / 1850 Balance 1015 / 1015 -341 / -341 112 / 112 Lab / Micro Data 06/20/24 05:50 06/20/24 05:50 Micro: Microbiology 06/19/24 00:05 Wound - Back Gram Stain - Final 06/19/24 00:05 Wound - Back Wound Culture - Final Meth. resistant Staph. aureus Gram positive cesar 06/19/24 00:05 Wound - Back Skin and Soft Tissue MRSA/MSSA (PCR - Final Meth. resistant Staph. aureus 06/18/24 18:25 Blood Culture (Wb) - Port Blood Culture - Preliminary No growth in 48 hours. 06/18/24 18:25 Urine, Clean Catch Urine Culture - Final Enterococcus faecalis 06/18/24 18:25 Mucosa - Nose SARS-CoV-2, Influenza & RSV (PCR) - Final Physical Exam Narrative General: Alert, Oriented x3, Cooperative, No apparent distress HEENT: Atraumatic, PERRLA, EOMI, Normocephalic Oral: Moist Mucosa Neck: Supple, No JVD Lungs: Clear to auscultation, Normal air movement, No rhonchi, No wheeze, No rales Cardiovascular: Regular rate, Regular Rhythm, Normal S1, Normal S2, No murmurs Abdomen: Soft, Non Tender, Non-Distended, No Hepato-splenomegaly Extremities: No edema, Capillary Refill Less than 3 Seconds Skin: Wounds on back with mild surrounding erythema Musculoskeletal: No Tenderness to Palpation of Joints or Extremities Neurological: No focal neurological deficits, Motor Exam 5/5 strength throughout, Sensory exam intact to light touch and pain Psych/Mental Status: Normal affect Assessment & Plan Assessment/Plan (1) Other postoperative infection: PLAN: Plan 1. 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 His previous spine surgery was for tumor resection and currently has chronic wounds ? He does have a history of MRSA ? Continue with antibiotics ? Plan for OR on Wednesday with repeat operative intervention next Wednesday ? Right upper quadrant ultrasound shows steatosis with no signs of gallbladder illness, could be combination of infection and steatosis leading to the transaminitis elevation ? No SUSAN ? Continue to follow-up as an outpatient with oncology ? Currently no change will continue to monitor 2. Essential HTN ? Blood pressures are stable ? Continue with home blood pressure medications 3. Hypothyroidism ? Stable ? Continue with Synthroid 4. History of VTE ? Given the planned intervention will hold Eliquis, transition to therapeutic Lovenox ? Last dose 06/18/2024 5. GERD ? Stable ? Continue with PPI DVT: Therapeutic Lovenox Charges/Coding Visit Charges Inpatient E&M: 24376 Subs Hosp L1
--- NOTE | 2024-06-23 12:48 | PCM.PN.ID ---
Physical Exam Narrative Feeling ok, no fever, no n/v/d. Const alert and no apparent distress Resp normal air movement and clear to auscultation bilaterally Cardio regular rate and regular rhythm GI soft to palpation, non-tender and non-distended Skin Skin Narrative: no new rash ID ID: Route of nutrition/ use of supplements: [] Nutritional Intake: [] IV Site: [] Humphries Catheter: [] Assessment & Plan Assessment/Plan (1) Open wound of tissue overlying spine: QUALIFIERS: Encounter type: initial encounter Laterality: unspecified laterality Qualified Code(s): S21.209A - Unspecified open wound of unspecified back wall of thorax without penetration into thoracic cavity, initial encounter PLAN: wound cx with MRSA and GPR (MRSA pcr positive), seen by plastic surgery and spine surgery, OR planned for next week. On vanc/unasyn for now. ucx with small growth enterococcus. Will follow (2) Paraplegia:
[2024-06-23] MEDS: MELATONIN 3 MG TABLET 6 MG PO (22:05)
[2024-06-24 03:35] VITALS: BMI 30.6
[2024-06-24 03:36] VITALS: BP 105/56; PULSE 56; RESP 18; TEMP 36.7; O2SAT 94
[2024-06-24] MEDS: Levothyroxine 100 MCG Tablet PO (05:33)
[2024-06-24] MEDS: Gabapentin 100 MG Capsule PO ×3 (05:33→20:57)
[2024-06-24] MEDS: Menthol/Lanolin/Calamine/Znox 113 GM Tube 1 APPLIC TOPICAL ×3 (05:33→20:58)
[2024-06-24] MEDS: Ampicillin/Sulbactam 3 GM in 0.9% Normal Saline (100mL MB+) 100 ML IV ×3 (05:33→20:58)
[2024-06-24] MEDS: 0.9 % NaCl (Sterile) Posiflush 10 mL IV ×2 (05:35→20:56)
[2024-06-24 06:52] LABS: Absolute Lymphocyte Count 0.44 X10^3/uL (0.83-4.51); Absolute Neutrophil Count 2.8 X10^3/uL (2.0-7.7); Basophil# 0.02 X10^3/uL; Basophil% 0.5 % (0-1); Eosinophil# 0.19 X10^3/uL; Hemoglobin 10.9 g/dL (13.0-16.5); Lymphocyte # 0.44 X10^3/ul (0.83-4.51); Lymphocyte % 11.5 % (19-41); Mean Corp Hgb Conc 31.1 g/dL (32-36); Mean Corpuscular Hgb 28.5 pg (27.0-32.0); Mean Corpuscular Volume 91.6 fL (80-94); Mean Platelet Vol. 10.7 fl (6.2-12.0); Monocyte# 0.36 X10^3/uL; Monocyte% 9.4 % (0-10); NRBC Flagged by Analyzer 0 % (0-5); Neutrophil % 73.1 % (47-70); POSITIVE DIFFERENTIAL YES; Platelet Count 171 K/mm3 (150-450); RBC Distribution Width CV 16.2 % (11.6-14.6); Red Blood Count 3.82 M/mm3 (4.6-6.2); White Blood Count 3.8 K/mm3 (4.4-11.0)
[2024-06-24 07:22] LABS: Anion Gap 7 (5-15); BUN 23 mg/dL (7-18); BUN/Creat Ratio 13.1 RATIO (10-20); Chloride 106 mmol/L (98-107); Creatinine, Serum 1.76 mg/dL (0.70-1.30); EST Glomerular Filtration Rate 41 mL/min (>60); Est Glom Filt Rate - Afr Amer 50 mL/min (>60); Estimated Creatinine Clearance 41.05 ml/min; Glucose 89 mg/dL (74-106); Potassium 3.9 mmol/L (3.5-5.1); Sodium Level 139 mmol/L (136-145)
[2024-06-24 09:35] VITALS: BP 135/64; PULSE 59; RESP 16; TEMP 36.3; O2SAT 95
[2024-06-24] MEDS: Polyethylene Glycol 3350 17 GM PACKET PO (09:49)
[2024-06-24] MEDS: Enoxaparin 80 MG/0.8 ML Syringe SC ×2 (09:49→20:57)
[2024-06-24 09:50] VITALS: BP 135/64; PULSE 59
[2024-06-24] MEDS: Baclofen 10 MG Tablet 5 MG PO ×2 (09:50→20:57)
[2024-06-24] MEDS: Metoprolol Tartrate 50 MG Tablet PO ×2 (09:50→20:56)
[2024-06-24] MEDS: amLODIPine 10 MG Tablet PO (09:50)
[2024-06-24] MEDS: Senna/Docusate Sodium 1 Tablet PO ×2 (09:50→20:57)
[2024-06-24] MEDS: Ferrous Sulfate 325 MG Tablet PO (09:50)
[2024-06-24] MEDS: Ascorbic Acid 500 MG Tablet 1000 MG PO ×2 (09:50→21:04)
[2024-06-24] MEDS: Acyclovir 200 MG Capsule 400 MG PO ×2 (09:50→21:04)
[2024-06-24] MEDS: Pantoprazole Sodium 20 MG Tablet PO (09:50)
[2024-06-24 10:48] LABS: Vancomycin, Trough Level 15.5 ug/mL (5.0-15.0)
--- NOTE | 2024-06-24 11:05 | PCM.RX.CS ---
Consult Antibiotic Management Pharmacy has been consulted to manage selected antibiotic: Vancomycin Type of Intervention Type of Consult: Follow-up Suspected Infection Suspected Infection: Skin/Soft tissue Prior Doses of Antibiotics Prior Doses of Antibiotics Received/Current Regimen: Vancomycin 1250 mg Q24H last dose 06/23 @ 1128 Labs Labs: Sodium 139 mmol/L (136-145) 06/24/24 06:15 Potassium 3.9 mmol/L (3.5-5.1) 06/24/24 06:15 Chloride 106 mmol/L (98-107) 06/24/24 06:15 Carbon Dioxide 26.0 mmol/L (21.0-32.0) 06/24/24 06:15 Anion Gap 7 (5-15) 06/24/24 06:15 BUN 23 mg/dL (7-18) H 06/24/24 06:15 Creatinine 1.76 mg/dL (0.70-1.30) H 06/24/24 06:15 Est GFR (MDRD) Af Amer 50 mL/min (>60) L 06/24/24 06:15 Est GFR (MDRD) Non-Af 41 mL/min (>60) L 06/24/24 06:15 BUN/Creatinine Ratio 13.1 RATIO (10-20) 06/24/24 06:15 Glucose 89 mg/dL (74-106) 06/24/24 06:15 Vancomycin Trough 15.5 ug/mL (5.0-15.0) H 06/24/24 10:15 Random Vancomycin 15.0 ug/mL (0.0-15.0) 06/22/24 09:42 Microbiology Microbiology: Microbiology 06/18/24 18:25 Blood Culture (Wb) - Port Blood Culture - Final No growth in 5 days. 06/19/24 00:05 Wound - Back Gram Stain - Final 06/19/24 00:05 Wound - Back Wound Culture - Final Meth. resistant Staph. aureus Gram positive cesar 06/19/24 00:05 Wound - Back Skin and Soft Tissue MRSA/MSSA (PCR - Final Meth. resistant Staph. aureus 06/18/24 18:25 Urine, Clean Catch Urine Culture - Final Enterococcus faecalis 06/18/24 18:25 Mucosa - Nose SARS-CoV-2, Influenza & RSV (PCR) - Final Dosing Weight Weight used for dosin kg Estimated Creatinine Clearance Estimated Creatinine Clearance: ~41 Goal Trough Goal Trough: 15-20 mcg/mL Pharmacy Plan for Drug Dosing Pharmacy Plan for Drug Dosing: Vancomycin trough 15.5, continue current dosing, trough in 2 days. Pharmacy Service will continue to monitor and adjust dosing as required. Follow-Up Labs Follow-Up Labs: Trough: Vancomycin Date/Time Labs Ordered Labs to be done on [date and time ordered]: 06/26/24 @ [id number]
[2024-06-24] MEDS: Vancomycin HCl 1,250 MG in 0.9% Normal Saline (250mL Bag) 250 ML 167 MG IV (12:01)
[2024-06-24 14:07] VITALS: BP 113/58; PULSE 54; RESP 16; TEMP 36.2; O2SAT 94
--- NOTE | 2024-06-24 17:56 | PN.HOSP_ITS ---
Reason for Visit Reason for Visit: Diagnoses Paraplegia, unspecified (06/18/24) Unspecified open wound of unspecified back wall of thorax without penetration into thoracic cavity, initial encounter (06/18/24) Radiation sickness, unspecified, initial encounter (06/18/24) Radiation sickness, unspecified, sequela (06/18/24) Infection following a procedure, unspecified, initial encounter (06/18/24) Subjective Subjective Patient was seen and examined today, he does not complain of any discomfort to this examiner Objective Data Objective Data Vital Signs: Vital Signs Temp Pulse Resp BP Pulse Ox O2 Del Method 97.2 F L 54 L 16 113/58 L 94 Room Air 06/24/24 14:07 06/24/24 14:07 06/24/24 14:07 06/24/24 14:07 06/24/24 14:07 06/24/24 14:07 Oxygen Delivery Method Room Air Weight: 83.5 kg Body Mass Index (BMI) 30.6 Intake & Output: Intake and Output for Last 24 Hours 06/22/24 06/23/24 06/24/24 23:59 23:59 23:59 Intake Total 1319 / 1559 2000 / 2000 499 / 499 Output Total 1400 / 1850 1400 / 1400 950 / 950 Balance -81 / -291 601 / 601 -451 / -451 Lab / Micro Data 06/24/24 06:15 06/24/24 06:15 Labs: Laboratory Results - last 24 hr 06/24/24 06:15: WBC 3.8 L, RBC 3.82 L, Hgb 10.9 L, Hct 35.0 L, MCV 91.6, MCH 28.5, MCHC 31.1 L, RDW Std Deviation 55.0 H, RDW Coeff of Hattie 16.2 H, Plt Count 171, MPV 10.7, Immature Gran % (Auto) 0.500, Neut % (Auto) 73.1 H, Lymph % (Auto) 11.5 L, [place] % (Auto) 9.4, Eos % (Auto) 5.0, Baso % (Auto) 0.5, Absolute Neuts (auto) 2.8, Absolute Lymphs (auto) 0.44 L, Nucleated RBC % 0, Sodium 139, Potassium 3.9, Chloride 106, Carbon Dioxide 26.0, Anion Gap 7, BUN 23 H, C reatinine 1.76 H, Estim Creat Clear Calc 41.05, Est GFR (MDRD) Af Amer 50 L, Est GFR (MDRD) Non-Af 41 L, BUN/Creatinine Ratio 13.1, Glucose 89, Calcium 9.0 06/24/24 10:15: Vancomycin Trough 15.5 H Micro: Microbiology 06/18/24 18:25 Blood Culture (Wb) - Port Blood Culture - Final No growth in 5 days. 06/19/24 00:05 Wound - Back Gram Stain - Final 06/19/24 00:05 Wound - Back Wound Culture - Final Meth. resistant Staph. aureus Gram positive cesar 06/19/24 00:05 Wound - Back Skin and Soft Tissue MRSA/MSSA (PCR - Final Meth. resistant Staph. aureus 06/18/24 18:25 Urine, Clean Catch Urine Culture - Final Enterococcus faecalis 06/18/24 18:25 Mucosa - Nose SARS-CoV-2, Influenza & RSV (PCR) - Final Physical Exam Const alert, oriented x3 and no apparent distress General Appearance: cooperative, well kempt and well developed Orientation / Consciousness: awake, oriented to person, oriented to place and oriented to time HEENT normocephalic, head/scalp atraumatic and moist oral mucous membranes Eyes PERRL, EOMs intact bilaterally and conjunctivae normal Neck supple, no JVD and thyroid normal General: trachea midline Resp normal respiratory effort, no retractions, no use of accessory muscles and clear to auscultation bilaterally Auscultation: Negative for rales, rhonchi or wheezes Cardio regular rate, regular rhythm, S1 normal heart sound, S2 normal heart sound, no murmurs, no rub and no gallops GI normal to inspection, nondistended, normoactive bowel sounds, soft to palpation, non-tender and non-distended Skin Skin Narrative: Patient's nonhealing midline back wounds were not examined at this time Neuro oriented x3 and CN's II-XII intact bilaterally Neuro Narrative: Patient has lower extremity weakness Sensorium / Orientation: awake and alert Speech: speech normal Psych affect normal Assessment & Plan Assessment/Plan (1) Open wound of tissue overlying spine: QUALIFIERS: Encounter type: initial encounter Laterality: u nspecified laterality Qualified Code(s): S21.209A - Unspecified open wound of unspecified back wall of thorax without penetration into thoracic cavity, initial encounter PLAN: Plan 1. Nonhealing surgical deep wound of the upper back infected with MRSA-continue present antibiotic coverage per ID (vancomycin and Unasyn), plastic surgery spine on taking the patient to surgery this Wednesday #2 lower extremity paraparesis secondary to multiple myeloma with collapse of thoracic and cervical vertebrae-patient is able to ambulate with a walker, complicates care, management, recovery, and prognosis #3 multiple myeloma-patient follows with outpatient oncology #4 essential hypertension-patient will remain on his present medications #5 hypothyroidism-patient is on Synthroid #6 chronic use of Eliquis due to past history of VTE-patient is currently on Lovenox Total clinical time spent by myself addressing the patient's medical issues, reviewing all of his data, and collaborating with patient's care team: 35 minutes Charges/Coding Visit Charges Inpatient E&M: 47044 Subs Hosp L2
[2024-06-24 20:56] VITALS: PULSE 59
[2024-06-24] MEDS: MELATONIN 3 MG TABLET 6 MG PO (20:57)
[2024-06-24 21:15] VITALS: BP 124/66; PULSE 58; RESP 18; TEMP 36.9; O2SAT 94
[2024-06-25 03:33] VITALS: BMI 30.5
[2024-06-25 05:15] VITALS: BP 129/63; PULSE 52; RESP 18; TEMP 36.6; O2SAT 96
[2024-06-25] MEDS: Gabapentin 100 MG Capsule PO ×3 (05:23→21:00)
[2024-06-25] MEDS: Ampicillin/Sulbactam 3 GM in 0.9% Normal Saline (100mL MB+) 100 ML IV ×3 (05:23→21:00)
[2024-06-25] MEDS: Levothyroxine 100 MCG Tablet PO (05:23)
--- NOTE | 2024-06-25 08:16 | PN.SURG_ITS ---
Subjective Subjective Doing well this morning overall. All questions answered regarding tomorrow's surgery. Objective Data Objective Data Rise in creatinine today and decrease in GFR Hgb 10.9 (ready for surgery) Vital Signs: Vital Signs Temp Pulse Resp BP Pulse Ox O2 Del Method 97.8 F 52 L 18 129/63 H 96 Room Air 06/25/24 05:15 06/25/24 05:15 06/25/24 05:15 06/25/24 05:15 06/25/24 05:15 06/25/24 05:15 Oxygen Delivery Method Room Air Weight: 183 lb 6.793 oz Body Mass Index (BMI) 30.5 Intake & Output: Intake and Output for Last 24 Hours 06/23/24 06/24/24 06/25/24 23:59 23:59 23:59 Intake Total 2000 611 / 611 Output Total 1400 / 1400 950 / 950 1000 / 1000 Balance 601 / 601 -339 / -339 -1000 / -1000 Lab / Micro Data 06/24/24 06:15 06/24/24 06:15 Labs: Laboratory Results - last 24 hr 06/24/24 10:15: Vancomycin Trough 15.5 H Micro: Microbiology 06/18/24 18:25 Blood Culture (Wb) - Port Blood Culture - Final No growth in 5 days. 06/19/24 00:05 Wound - Back Gram Stain - Final 06/19/24 00:05 Wound - Back Wound Culture - Final Meth. resistant Staph. aureus Gram positive cesar 06/19/24 00:05 Wound - Back Skin and Soft Tissue MRSA/MSSA (PCR - Final Meth. resistant Staph. aureus 06/18/24 18:25 Urine, Clean Catch Urine Culture - Final Enterococcus faecalis 06/18/24 18:25 Mucosa - Nose SARS-CoV-2, Influenza & RSV (PCR) - Final Physical Exam Narrative Thoracic spine Persistent wounds with drainage (x 2) on the thoracic/lower cervical spine that are 1 x 1 cm (serosanguineous fluid, no aguila purulence) with surrounding skin with the stigmata of radiation dermatitis. No areas of fluctuance (nondraining areas). The areas are slightly tender to palpation. Photo from consultation, 19 Jun 2024: Const alert and oriented x3 Constitutional Narrative: Able to give excellent history Eyes EOMs intact bilaterally Chest Chest Narrative: Right upper extremity port Resp normal respiratory effort Cardio Rate: regular rate Rhythm: regular rhythm GI soft to palpation Extremity no calf tenderness Extremity Narrative: Left lower extremity with some swelling compared to the right, but no redness Neuro CN's II-XII intact bilaterally Psych mental status grossly normal Assessment & Plan Assessment/Plan (1) Open wound of tissue overlying spine: QUALIFIERS: Encounter type: initial encounter Laterality: u nspecified laterality Qualified Code(s): S21.209A - Unspecified open wound of unspecified back wall of thorax without penetration into thoracic cavity, initial encounter PLAN: Plan I spoke with Dr. Lenz this morning (Hospitalist) Holding tonight's dose of therapeutic Lovenox in anticipation for surgery tomorrow NPO at midnight Hgb 10.9, should get a type and screen as well. Appreciate ID involvement. We will plan to get deep tissue/bone cultures tomorrow in the OR Charges/Coding Visit Charges Inpatient E&M: 48862 Subs Hosp L1
[2024-06-25 08:44] VITALS: BP 126/65; PULSE 58; RESP 16; TEMP 36.8; O2SAT 93
[2024-06-25] MEDS: Ferrous Sulfate 325 MG Tablet PO (08:47)
[2024-06-25] MEDS: amLODIPine 10 MG Tablet PO (08:48)
[2024-06-25] MEDS: Ascorbic Acid 500 MG Tablet 1000 MG PO ×2 (08:48→21:01)
[2024-06-25] MEDS: Pantoprazole Sodium 20 MG Tablet PO (08:48)
[2024-06-25] MEDS: Senna/Docusate Sodium 1 Tablet PO ×2 (08:48→21:01)
[2024-06-25] MEDS: Polyethylene Glycol 3350 17 GM PACKET PO (08:48)
[2024-06-25] MEDS: Baclofen 10 MG Tablet 5 MG PO ×2 (08:48→21:01)
[2024-06-25 08:49] VITALS: BP 126/65; PULSE 58
[2024-06-25] MEDS: Acyclovir 200 MG Capsule 400 MG PO ×2 (08:49→21:01)
[2024-06-25] MEDS: Metoprolol Tartrate 50 MG Tablet PO ×2 (08:49→21:00)
[2024-06-25] MEDS: Enoxaparin 40 MG/0.4 ML Syringe SC (08:55)
[2024-06-25] MEDS: Vancomycin HCl 1,250 MG in 0.9% Normal Saline (250mL Bag) 250 ML 167 MG IV (10:48)
--- NOTE | 2024-06-25 12:53 | PN.HOSP_ITS ---
Reason for Visit Reason for Visit: Diagnoses Paraplegia, unspecified (06/18/24) Unspecified open wound of unspecified back wall of thorax without penetration into thoracic cavity, initial encounter (06/18/24) Radiation sickness, unspecified, initial encounter (06/18/24) Radiation sickness, unspecified, sequela (06/18/24) Infection following a procedure, unspecified, initial encounter (06/18/24) Subjective Subjective Patient was seen and examined today, I talked with plastic surgery about his care. Patient is scheduled for surgery tomorrow, I have elected to give him a prophylactic dose of Lovenox today and then stop the Lovenox, plastic surgery is okay with this. Patient states he thinks his last VTE episode was over a year ago. Objective Data Objective Data Vital Signs: Vital Signs Temp Pulse Resp BP Pulse Ox O2 Del Method 98.2 F 58 L 16 126/65 H 93 Room Air 06/25/24 08:44 06/25/24 08:49 06/25/24 08:44 06/25/24 08:49 06/25/24 08:44 06/25/24 08:44 Oxygen Delivery Method Room Air Weight: 83.2 kg Body Mass Index (BMI) 30.5 Intake & Output: Intake and Output for Last 24 Hours 06/23/24 06/24/24 06/25/24 23:59 23:59 23:59 Intake Total 2000 611 / 611 112 / 112 Output Total 1400 / 1400 950 / 950 1000 / 1000 Balance 601 / 601 -339 / -339 -888 / -888 Lab / Micro Data 06/24/24 06:15 06/24/24 06:15 Micro: Microbiology 06/18/24 18:25 Blood Culture (Wb) - Port Blood Culture - Final No growth in 5 days. 06/19/24 00:05 Wound - Back Gram Stain - Final 06/19/24 00:05 Wound - Back Wound Culture - Final Meth. resistant Staph. aureus Gram positive cesar 06/19/24 00:05 Wound - Back Skin and Soft Tissue MRSA/MSSA (PCR - Final Meth. resistant Staph. aureus 06/18/24 18:25 Urine, Clean Catch Urine Culture - Final Enterococcus faecalis 06/18/24 18:25 Mucosa - Nose SARS-CoV-2, Influenza & RSV (PCR) - Final Physical Exam Narrative alert, oriented x3 and no apparent distress General Appearance: cooperative, well kempt and well developed Orientation / Consciousness: awake, oriented to person, oriented to place and oriented to time HEENT normocephalic, head/scalp atraumatic and moist oral mucous membranes Eyes PERRL, EOMs intact bilaterally and conjunctivae normal Neck supple, no JVD and thyroid normal General: trachea midline Resp normal respiratory effort, no retractions, no use of accessory muscles and clear to auscultation bilaterally Auscultation: Negative for rales, rhonchi or wheezes Cardio regular rate, regular rhythm, S1 normal heart sound, S2 normal heart sound, no murmurs, no rub and no gallops GI normal to inspection, nondistended, normoactive bowel sounds, soft to palpation, non-tender and non-distended Skin Skin Narrative: Patient's nonhealing midline back wounds were not examined at this time Neuro oriented x3 and CN's II-XII intact bilaterally Neuro Narrative: Patient has lower extremity weakness Sensorium / Orientation: awake and alert Speech: speech normal Psych affect normal Assessment & Plan Assessment/Plan (1) Open wound of tissue overlying spine: QUALIFIERS: Encounter type: initial encounter Laterality: u nspecified laterality Qualified Code(s): S21.209A - Unspecified open wound of unspecified back wall of thorax without penetration into thoracic cavity, initial encounter PLAN: Plan 1. Nonhealing surgical deep wound of the upper back infected with MRSA-continue present antibiotic coverage per ID (vancomycin and Unasyn), plastic surgery and spinal surgery plans on taking the patient to surgery this Wednesday, most likely he will need an additional surgery later this week #2 lower extremity paraparesis secondary to multiple myeloma with collapse of thoracic and cervical vertebrae-patient is able to ambulate with a walker, complicates care, management, recovery, and prognosis #3 multiple myeloma-patient follows with outpatient oncology #4 essential hypertension-patient will remain on his present medications #5 hypothyroidism-patient is on Synthroid #6 chronic use of Eliquis due to past history of VTE-again, patient received a prophylactic dose of Lovenox today and after that it will be held until after surgery. Total clinical time spent by myself addressing the patient's medical issues, reviewing all of his data, and collaborating with patient's care team: 35 minutes Charges/Coding Visit Charges Inpatient E&M: [id number] Subs Hosp L2
[2024-06-25] MEDS: Menthol/Lanolin/Calamine/Znox 113 GM Tube 1 APPLIC TOPICAL ×2 (14:05→21:01)
[2024-06-25 14:08] VITALS: BP 126/65; PULSE 55; RESP 16; TEMP 36.4; O2SAT 98
[2024-06-25 21:00] VITALS: BP 130/65; PULSE 63; RESP 18; TEMP 36.4; O2SAT 95
[2024-06-25] MEDS: MELATONIN 3 MG TABLET 6 MG PO (21:01)
[2024-06-26] VITALS (13 sets, daily range): BP systolic 120–151; BP diastolic 67–81; PULSE 54–83; RESP 12–20; TEMP 36.2–36.8; O2SAT 85–98; BMI 30.4
[2024-06-26 04:37] LABS: Absolute Lymphocyte Count 0.51 X10^3/uL (0.83-4.51); Absolute Neutrophil Count 3.8 X10^3/uL (2.0-7.7); Basophil# 0.02 X10^3/uL; Basophil% 0.4 % (0-1); Eosinophil# 0.24 X10^3/uL; Eosinophils% 4.8 % (0-5); Hemoglobin 11.6 g/dL (13.0-16.5); Lymphocyte # 0.51 X10^3/ul (0.83-4.51); Lymphocyte % 10.2 % (19-41); Mean Corp Hgb Conc 31.4 g/dL (32-36); Mean Corpuscular Hgb 28.5 pg (27.0-32.0); Mean Corpuscular Volume 90.9 fL (80-94); Mean Platelet Vol. 10.3 fl (6.2-12.0); Monocyte# 0.43 X10^3/uL; Monocyte% 8.6 % (0-10); NRBC Flagged by Analyzer 0 % (0-5); Neutrophil % 75.6 % (47-70); POSITIVE DIFFERENTIAL YES; Platelet Count 223 K/mm3 (150-450); RBC Distribution Width CV 15.9 % (11.6-14.6); RBC Distribution Width SD 53.8 fl (35.1-43.9); Red Blood Count 4.07 M/mm3 (4.6-6.2)
[2024-06-26 04:46] LABS: Partial Thromboplast Time 27.8 Seconds (24.1-36.2)
[2024-06-26 04:53] LABS: Anion Gap 6 (5-15); BUN 17 mg/dL (7-18); BUN/Creat Ratio 11.5 RATIO (10-20); Chloride 104 mmol/L (98-107); Creatinine, Serum 1.48 mg/dL (0.70-1.30); EST Glomerular Filtration Rate 50 mL/min (>60); Est Glom Filt Rate - Afr Amer 61 mL/min (>60); Estimated Creatinine Clearance 48.68 ml/min; Glucose 115 mg/dL (74-106); Potassium 3.9 mmol/L (3.5-5.1); Sodium Level 139 mmol/L (136-145)
[2024-06-26] MEDS: Ampicillin/Sulbactam 3 GM in 0.9% Normal Saline (100mL MB+) 100 ML IV ×3 (05:00→22:23)
--- NOTE | 2024-06-26 06:18 | HP.PCM.SX_ITS ---
HPI - General General Date of Admission: 06/18/24 Chief Complaint: Dyspnea HPI Narrative RACHEAL BURLESON, is a 68 M who presents with infected thoracic/lower cervical spinal wound. Plan for OR today with Dr. Menchaca and me. Current Encounter (DATE OF SURGERY H&P UPDATE): I saw and examined the patient this morning in pre-operative holding. We discussed risks and benefits of today's surgery and they would like to proceed. NO CHANGE in health history since last seen and evaluated (yesterday morning). Ready to proceed with surgery. 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 History of radiation therapy Non-healing surgical wound Paraplegia Anemia Multiple myeloma DVT (deep venous thrombosis) Back pain Hypothyroidism Hypertension Hypercholesteremia Home Medications ?Medication ?Instructions ?Recorded ?Last Taken ?Type acetaminophen 500 mg capsule 500 mg PO Q6H PRN fever or pain 07/08/23 Unknown History acyclovir 400 mg tablet 400 mg PO Q12H 07/08/23 Unknown History amlodipine 10 mg tablet 10 mg PO DAILY bp 07/08/23 Unknown History ascorbic acid (vitamin C) 1,000 mg 1 g PO BID supplement 07/08/23 Unknown History tablet cholecalciferol (vitamin D3) 125 125 mcg PO DAILY supplement 07/08/23 Unknown History mcg (5,000 unit) capsule diphenhydramine HCl 25 mg capsule 25 mg PO ONCE PRN itching 07/08/23 Unknown History (Benadryl) gabapentin 100 mg capsule 100 mg PO TID back 07/08/23 Unknown History magnesium oxide 250 mg PO .noon bowel health 07/08/23 Unknown History melatonin 3 mg capsule 6 mg PO HS sleep 07/08/23 Unknown History metoprolol tartrate 50 mg tablet 50 mg PO BID 07/08/23 Unknown History omeprazole 20 mg tablet,delayed 20 mg PO DAILY gerd 07/08/23 Unknown History release sennosides 8.6 mg-docusate sodium 1 tab-cap PO BID constipation 07/08/23 Unknown History 50 mg tablet (Senna Plus) simethicone 80 mg chewable tablet 80 mg PO TID PRN abdominal 07/08/23 Unknown History (Gas Relief (simethicone)) distention Disability Placard #1 ea 07/12/23 Unknown Rx ferrous sulfate 325 mg (65 mg 325 mg PO DAILY supplement 07/12/23 Unknown History iron) tablet apixaban 5 mg tablet (Eliquis) 5 mg PO BID vte prophylaxis 07/17/23 Unknown History baclofen 5 mg tablet 5 mg PO BID back pain 08/12/23 Unknown History benzonatate 200 mg capsule 200 mg PO TID PRN cough 08/12/23 Unknown History calcium carbonate 600 mg PO BID supplement 08/12/23 Unknown History levothyroxine 100 mcg tablet 100 mcg PO DAILY thyroid 08/12/23 Unknown History (Levo-T) magnesium hydroxide 400 mg/5 mL 30 ml PO DAILY PRN constipation 08/12/23 Unknown History oral suspension (Milk of Magnesia) polyethylene glycol 3350 17 17 g PO DAILY constipation 08/12/23 Unknown History gram/dose oral powder (ClearLax) lenalidomide 15 mg capsule 15 mg .Route .COMPLEX #21 CAPSULES 04/04/24 Unknown Rx (Revlimid) arginine 7 gram-glutamine 7 1 ea PO DAILY wound 06/18/24 Unknown History gram-calcium HMB 1.5 gram oral powder pack (Ariel) bisacodyl 10 mg rectal suppository 10 mg [place] DAILY PRN PRN constipation 06/18/24 Unknown History (Dulcolax (bisacodyl)) sulfamethoxazole 800 1 tab PO Q12H antibiotic 06/18/24 Unknown History mg-trimethoprim 160 mg tablet dexamethasone 4 mg tablet 20 mg PO Q28D myeloma 06/19/24 Unknown History Allergy/AdvReac Type Severity Reaction Status Date / Time No Known Allergies Allergy Verified 06/18/24 17:37 Family History Mother Follicular lymphoma Father Hypertension Heart disease Brother Hypertension Other Cancer Surgical History History of back surgery History of tooth extraction H/O laminectomy History of cholecystectomy Social History housing: assisted living facility Smoking Status: Never smoker alcohol intake: former substance use type: does not use Vital Signs Vital Signs Vital Signs: 06/25/24 08:44 06/25/24 08:49 06/25/24 09:00 Temperature 98.2 F Temperature Source Oral Pulse Rate 58 L 58 L Pulse Strength Respiratory Rate 16 Respiratory Effort Normal Non-Labored Respiratory Depth Normal Respiratory Pattern Normal Blood Pressure 126/65 H 126/65 H Blood Pressure Mean 85 Blood Pressure Source Monitor Blood Pressure Position Semi-Fowlers Blood Pressure Location Left Arm Pulse Ox 93 Oxygen Delivery Method Room Air 06/25/24 14:08 06/25/24 14:29 06/25/24 21:00 Temperature 97.6 F L Temperature Source Oral Pulse Rate 55 L 63 Pulse Strength Respiratory Rate 16 Respiratory Effort Normal Non-Labored Respiratory Depth Normal Respiratory Pattern Normal Blood Pressure 126/65 H Blood Pressure Mean 85 Blood Pressure Source Monitor Blood Pressure Position Semi-Fowlers Blood Pressure Location Left Arm Pulse Ox 98 Oxygen Delivery Method Room Air Room Air 06/25/24 21:00 06/26/24 03:20 06/26/24 03:30 Temperature 97.6 F L 98.2 F Temperature Source Oral Oral Pulse Rate 63 54 L Pulse Strength Respiratory Rate 18 18 Respiratory Effort Normal Non-Labored Respiratory Depth Normal Respiratory Pattern Normal Blood Pressure 130/65 H 129/70 H Blood Pressure Mean 86 89 Blood Pressure Source Monitor Blood Pressure Position Semi-Fowlers Blood Pressure Location Left Arm Pulse Ox 95 97 Oxygen Delivery Method Room Air Room Air Room Air 06/26/24 03:44 06/26/24 05:15 06/26/24 05:15 Temperature 98.2 F 98.2 F Temperature Source Oral Oral Pulse Rate 61 61 Pulse Strength Normal (2+) Respiratory Rate 16 16 Respiratory Effort Respiratory Depth Respiratory Pattern Blood Pressure 141/67 H 141/67 H Blood Pressure Mean 91 91 Blood Pressure Source Monitor Monitor Blood Pressure Position Semi-Fowlers Semi-Fowlers Blood Pressure Location Left Arm Left Arm Pulse Ox 96 96 Oxygen Delivery Method Room Air Room Air Weight Weight: 182 lb 15.739 oz Body Mass Index (BMI) 30.4 Physical Exam Narrative Thoracic spine Persistent wounds with drainage (x 2) on the thoracic/lower cervical spine that are 1 x 1 cm (serosanguineous fluid, no aguila purulence) with surrounding skin with the stigmata of radiation dermatitis. No areas of fluctuance (nondraining areas). The areas are slightly tender to palpation. Photo from consultation, 19 Jun 2024: Const alert and oriented x3 Constitutional Narrative: Able to give excellent history Eyes EOMs intact bilaterally Chest Chest Narrative: Right upper extremity port Resp normal respiratory effort Cardio Rate: regular rate Rhythm: regular rhythm GI soft to palpation Extremity no calf tenderness Extremity Narrative: Left lower extremity with some swelling compared to the right, but no redness Neuro CN's II-XII intact bilaterally Psych mental status grossly normal Results Lab / Micro Data 06/26/24 04:15 06/26/24 04:15 Labs: Laboratory Results - last 24 hr 06/26/24 04:15: WBC 5.0, RBC 4.07 L, Hgb 11.6 L, Hct 37.0 L, MCV 90.9, MCH 28.5, MCHC 31.4 L, RDW Std Deviation 53.8 H, RDW Coeff of Hattie 15.9 H, Plt Count 223, MPV 10.3, Immature Gran % (Auto) 0.400, Neut % (Auto) 75.6 H, Lymph % (Auto) 10.2 L, [place] % (Auto) 8.6, Eos % (Auto) 4.8, Baso % (Auto) 0.4, Absolute Neuts (auto) 3.8, Absolute Lymphs (auto) 0.51 L, Nucleated RBC % 0, PT 13.0, INR 1.0, APTT 27.8, Sodium 139, Potassium 3.9, Chloride 104, Carbon Dioxide 29.0, Anion Gap 6, BUN 17, Creatinine 1.48 H, Estim Creat Clear Calc 48.68, Est GFR (MDRD) Af Amer 61, Est GFR (MDRD) Non-Af 50 L, BUN/Creatinine Ratio 11.5, Glucose 115 H , Calcium 9.0, Blood Type AB POSITIVE, Antibody Screen POSITIVE Assessment & Plan Assessment/Plan (1) Open wound of tissue overlying spine: QUALIFIERS: Encounter type: initial encounter Laterality: u nspecified laterality Qualified Code(s): S21.209A - Unspecified open wound of unspecified back wall of thorax without penetration into thoracic cavity, initial encounter PLAN: Plan INTERVAL H&P PLAN, DATE OF SURGERY: We will proceed with surgery today. I talked the patient extensively about the risks of surgery, including bleeding, infection, damage to surrounding structures, surgical site dehiscence and wound formation, need for wound care, need for repeat operations, failure to obtain the desired result, DVT/PE, and the risks of anesthesia including . All of their questions were answered, and they agreed to proceed with surgery. Charges/Coding Visit Charges Inpatient E&M: 94302 Subs Hosp L1
--- NOTE | 2024-06-26 06:45 | PRE.ANES_ITS ---
ASA Classification* ASA Classification ASA Classification: 3 Assessment & Plan Anesthesia* Anesthesia Assessment Anesthesia Assessment: Discussed sedation and/or anesthesia options, risks, benefits, and alternatives with patient/parents/legal guardian/POA. Questions invited. The patient/parents/legal guardian/POA seems to understand and agrees to proceed with anesthesia plan. Reviewed the physical assessment, medical history, allergy history and patient home medications list prior to surgery/procedure/anesthetic and documented any changes. Performed airway and anesthesia risk assessments. Anesthesia Type Anesthesia Type: General (Avoid Sux) Anesthesia Focused Assessment* Temperature: 98.2 F Pulse Rate: 61 Blood Pressure: 141/67 Respiratory Rate: 16 Pulse Ox: 96 Airway Assessment Mouth opens: >3 cm Mallampati Score: II Focused Labs Anesthesia Preop lab: CBC WBC 5.0 K/mm3 (4.4-11.0) 06/26/24 04:15 RBC 4.07 M/mm3 (4.6-6.2) L 06/26/24 04:15 Hgb 11.6 g/dL (13.0-16.5) L 06/26/24 04:15 Hct 37.0 % (40-54) L 06/26/24 04:15 Plt Count 223 K/mm3 (150-450) 06/26/24 04:15 CHEMISTRY Potassium 3.9 mmol/L (3.5-5.1) 06/26/24 04:15 Sodium 139 mmol/L (136-145) 06/26/24 04:15 Magnesium 2.0 mg/dL (1.6-2.6) 06/20/24 05:50 Phosphorus 3.1 mg/dL (2.5-4.9) 06/20/24 05:50 BUN 17 mg/dL (7-18) 06/26/24 04:15 Creatinine 1.48 mg/dL (0.70-1.30) H 06/26/24 04:15 Glucose 115 mg/dL (74-106) H 06/26/24 04:15 TSH 2.44 uIU/mL (0.358-3.74) 01/13/24 06:20 COAG PT 13.0 SECONDS (11.7-14.9) 06/26/24 04:15 Pre-Assessment Diagnosis/Proposed Procedure Planned Operative Procedure(s): I&D abscess Back, Wound Vac application Anesthesia History Anesthesia History - director educational radio: Anesthesia History - director educational radio Hx Hospitalization Any Problems With Anesthesia No 06/26/24 05:15 Cholinesterase deficiency No 06/26/24 05:15 You/Your Family Experience No 06/26/24 05:15 fever (hyperthermia) with Relationship Recent Exposure to Contagious No 06/26/24 05:15 Disease Does patient have nerve No 06/26/24 05:15 stimulator Patient instructed to have device shut off --Does patient have Pacemaker No 06/26/24 05:15 or ICD? When Was Last Pacemaker Check QUESTION #4 FULL TEXT: You/Your Family Experience fever (hyperthermia) with Anesthesia Last Oral Intake Last Oral intake: Last Oral Intake NPO since 00:00 06/26/24 05:15 Meds taken in AM with sips of No 06/26/24 05:15 water? Meds patient instructed to take am of surgery PONV PONV - director educational radio: PONV - director educational radio Female HX of Motion Sickness HX of N/V After Surgery Non-Smoker Duration of Surgery greater than 60 minutes Number of Risk Factors PONV Score Height & Weight Height & Weight: Anesthesia: Height & Weight Height 5 ft 5 in 06/26/24 05:15 Weight: 83 kg 06/26/24 05:15 Body Mass Index (BMI) 30.4 06/26/24 05:15 Respiratory Assessment Respiratory Assessment - director educational radio: Respiratory Tract Infection Hx - director educational radio Hx Respiratory Tract Infection No 06/26/24 05:15 STOP Sleep Apnea STOP Sleep Apnea - director educational radio: STOP Sleep Apnea - director educational radio Hx Hypertension Yes 06/19/24 16:29 Hx Sleep Apnea No 06/18/24 23:11 CPAP BIPAP Do you snore loudly (louder No 06/18/24 23:11 than talking or can be heard Do you often feel tired/ No 06/18/24 23:11 fatigued/ sleepy during daytime? Has anyone observed you stop No 06/18/24 23:11 breathing during sleep? STOP Results Negative 06/18/24 23:11 QUESTION #5 FULL TEXT : Do you snore loudly (louder than talking or can be heard through closed doors)? 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 Specify any problems Hx of Preganancy in last 3 N/A 06/18/24 23:11 Months Nurse Filling Out Transfusion MMAST 06/18/24 23:11 & Questions: Date: 06/18/24 06/18/24 23:11 Time: 23:24 06/18/24 23:11 Patient unable to answer at this time (ie. confused, unrespo /Reproduction History /Reproductive History - director educational radio: /Reproductive Hx- director educational radio Hx Now No 06/26/24 05:15 Gestational Age (in weeks): EDC: Hx Hx Para Hx Section SAB No 06/26/24 05:15 Active Medications Active Medications: Current Medications Generic Name Dose Route Start Last Admin Trade Name Freq PRN Reason Stop Dose Admin Acetaminophen 650 mg 06/18/24 23:00 06/21/24 10:04 Acetaminophen 325 Mg Tablet PO 650 mg Q4H PRN PRN Administration Fever, pain 1-10 Acyclovir 400 mg 06/18/24 23:15 06/25/24 21:01 Acyclovir 200 Mg Capsule PO 400 mg Q12 DAVID Administration Al Hydrox/Mg Hydrox/Simethicone 30 ml 06/18/24 23:00 Mag /Aluminum/Simeth Wch Udc 30 Ml Oral.Susp PO Q6H PRN PRN Gastric Burning Albuterol Sulfate 2.5 mg 06/18/24 23:00 Albuterol 2.5 Mg/3 Ml Vial.Neb. INHALATION Q2H PRN PRN Dyspnea, wheezing Amlodipine Besylate 10 mg 06/19/24 10:00 06/25/24 08:48 Amlodipine 10 Mg Tablet PO 10 mg DAILY DAVID Administration Protocol Ascorbic Acid 1,000 mg 06/18/24 23:00 06/25/24 21:01 Ascorbic Acid 500 Mg Tablet PO 1,000 mg BID DAVID Administration Baclofen 5 mg 06/18/24 23:00 06/25/24 21:01 Baclofen 10 Mg Tablet PO 5 mg BID DAVID Administration Bisacodyl 10 mg 06/19/24 00:09 Bisacodyl 10 Mg Suppository RC Q4H PRN PRN constipation Calamine/Phenol 1 applic 06/22/24 22:00 06/25/24 21:01 Menthol/Lanolin/Calamine/Znox 113 Gm Tube TOPICAL 1 applic TID DAVID Administration Protocol Sodium Hypochlorite 473 ml/ 0 ml 06/26/24 10:00 Sodium Chloride 473 ml IRRIGATION UD [facility] Enoxaparin Sodium 80 mg 06/30/24 22:00 Enoxaparin 80 Mg/0.8 Ml Syringe SC Q12 DAVID Ferrous Sulfate 325 mg 06/19/24 08:00 06/25/24 08:47 Ferrous Sulfate 325 Mg Tablet PO 325 mg DAILYCM DAVID Administration Gabapentin 100 mg 06/18/24 23:00 06/25/24 21:00 Gabapentin 100 Mg Capsule PO 100 mg TID DAVID Administration Guaifenesin 20 ml 06/18/24 23:00 Guaifenesin 10 Ml Udc (200mg/10ml) PO Q4H PRN PRN COUGH Heparin Sodium (Beef Lung) 50 units 06/18/24 23:30 Heparin Pf Lock 10 Units/Ml 50 Units/5 Ml Syringe IV UD PRN Port-a-Cath (VAD)Heparin Flush Hydralazine HCl 10 mg 06/18/24 23:00 Hydralazine 20 Mg/Ml Vial IV Q4H PRN PRN SBP > 160 Protocol Vancomycin IV-PHARMACY TO DOSE 500 mls @ 250 mls/hr 06/18/24 23:00 1 each/ Sodium Chloride IV X1 PRN Rx to Dose Protocol Vancomycin HCl 1,250 mg/ 275 mls @ 167 mls/hr 06/22/24 11:00 06/25/24 13:03 Sodium Chloride IV Infused Q24H DAVID Infusion Ampicillin Sodium/Sulbactam 112 mls @ 150 mls/hr 06/22/24 14:00 06/26/24 05:45 Sodium 3 gm/ Sodium Chloride IV Infused Q8 [facility] Infusion Levothyroxine Sodium 100 mcg 06/19/24 06:00 06/25/24 05:23 Levothyroxine 100 Mcg Tablet PO 100 mcg DAILY@0600 DAVID Administration Melatonin 6 mg 06/18/24 23:00 06/25/24 21:01 Melatonin 3 Mg Tablet PO 6 mg HS DAVID Administration Metoprolol Tartrate 50 mg 06/19/24 10:00 06/25/24 21:00 Metoprolol Tartrate 50 Mg Tablet PO 50 mg BID DAVID Administration Protocol Ondansetron HCl 4 mg 06/18/24 23:00 Ondansetron 4 Mg/2 Ml Vial IV Q8H PRN PRN NAUSEA/VOMITING Pantoprazole Sodium 20 mg 06/19/24 10:00 06/25/24 08:48 Pantoprazole Sodium 20 Mg Tablet PO 20 mg DAILY DAVID Administration Polyethylene Glycol 17 gm 06/19/24 10:00 06/25/24 08:48 Polyethylene Glycol 3350 17 Gm Packet PO 17 gm DAILY DAVID Administration Senna/Docusate Sodium 1 tablet 06/18/24 23:00 06/25/24 21:01 Senna/Docusate Sodium 1 Tablet PO 1 tablet BID DAVID Administration Sodium Chloride 10 - 40 ml 06/18/24 23:30 06/24/24 20:56 0.9 % Nacl (Sterile) Posiflush 10 Ml IV 10 ml UD PRN Administration Port access or dressing change Sodium Chloride 10 - 40 ml 06/18/24 23:30 0.9% Saline Lock 10 Ml Syringe IV UD PRN Port-a-Cath (VAD) Flush Vancomycin Protocol 1 lab 06/26/24 08:30 Vancomycin Trough/Random Due 06/26/24 12:30 DAILY DAVID PFSH Medical History Secondary malignant neoplasm of bone marrow Personal history of Methicillin resistant Staphylococcus aureus infection 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 History of radiation therapy Non-healing surgical wound Paraplegia Anemia Multiple myeloma DVT (deep venous thrombosis) Back pain Hypothyroidism Hypertension Hypercholesteremia Home Medications ?Medication ?Instructions ?Recorded ?Last Taken ?Type acetaminophen 500 mg capsule 500 mg PO Q6H PRN fever or pain 07/08/23 Unknown History acyclovir 400 mg tablet 400 mg PO Q12H 07/08/23 Unknown History amlodipine 10 mg tablet 10 mg PO DAILY bp 07/08/23 Unknown History ascorbic acid (vitamin C) 1,000 mg 1 g PO BID supplement 07/08/23 Unknown History tablet cholecalciferol (vitamin D3) 125 125 mcg PO DAILY supplement 07/08/23 Unknown History mcg (5,000 unit) capsule diphenhydramine HCl 25 mg capsule 25 mg PO ONCE PRN itching 07/08/23 Unknown History (Benadryl) gabapentin 100 mg capsule 100 mg PO TID back 07/08/23 Unknown History magnesium oxide 250 mg PO .noon bowel health 07/08/23 Unknown History melatonin 3 mg capsule 6 mg PO HS sleep 07/08/23 Unknown History metoprolol tartrate 50 mg tablet 50 mg PO BID 07/08/23 Unknown History omeprazole 20 mg tablet,delayed 20 mg PO DAILY gerd 07/08/23 Unknown History release sennosides 8.6 mg-docusate sodium 1 tab-cap PO BID constipation 07/08/23 Unknown History 50 mg tablet (Senna Plus) simethicone 80 mg chewable tablet 80 mg PO TID PRN abdominal 07/08/23 Unknown History (Gas Relief (simethicone)) distention Disability Placard #1 ea 07/12/23 Unknown Rx ferrous sulfate 325 mg (65 mg 325 mg PO DAILY supplement 07/12/23 Unknown History iron) tablet apixaban 5 mg tablet (Eliquis) 5 mg PO BID vte prophylaxis 07/17/23 Unknown History baclofen 5 mg tablet 5 mg PO BID back pain 08/12/23 Unknown History benzonatate 200 mg capsule 200 mg PO TID PRN cough 08/12/23 Unknown History calcium carbonate 600 mg PO BID supplement 08/12/23 Unknown History levothyroxine 100 mcg tablet 100 mcg PO DAILY thyroid 08/12/23 Unknown History (Levo-T) magnesium hydroxide 400 mg/5 mL 30 ml PO DAILY PRN constipation 08/12/23 Unknown History oral suspension (Milk of Magnesia) polyethylene glycol 3350 17 17 g PO DAILY constipation 08/12/23 Unknown History gram/dose oral powder (ClearLax) lenalidomide 15 mg capsule 15 mg .Route .COMPLEX #21 CAPSULES 04/04/24 Unknown Rx (Revlimid) arginine 7 gram-glutamine 7 1 ea PO DAILY wound 06/18/24 Unknown History gram-calcium HMB 1.5 gram oral powder pack (Ariel) bisacodyl 10 mg rectal suppository 10 mg [place] DAILY PRN PRN constipation 06/18/24 Unknown History (Dulcolax (bisacodyl)) sulfamethoxazole 800 1 tab PO Q12H antibiotic 06/18/24 Unknown History mg-trimethoprim 160 mg tablet dexamethasone 4 mg tablet 20 mg PO Q28D myeloma 06/19/24 Unknown History Allergy/AdvReac Type Severity Reaction Status Date / Time No Known Allergies Allergy Verified 06/18/24 17:37 Family History Mother Follicular lymphoma Father Hypertension Heart disease Brother Hypertension Other Cancer Surgical History History of back surgery History of tooth extraction H/O laminectomy History of cholecystectomy Social History housing: assisted living facility Smoking Status: Never smoker alcohol intake: former substance use type: does not use Review of Systems (Anesthesia) ROS Narrative System reviewed and no additional complaints, except as documented.
[2024-06-26] MEDS: Bupivacaine 0.25% 30 ML Vial (06:47)
[2024-06-26] MEDS: Lactated Ringers 1,000 ML 15 ML IV ×2 (07:00→10:00)
--- NOTE | 2024-06-26 07:30 | SOF_PTH ---
PATIENT: RACHEAL BURLESON LEAH LOC: [id number] U#:[id number] AGE/SX: 68/M ROOM: [id number] RE06/18/[address]: Dr. Arianne Crook MD : 1955 BED: 1 DIS: 07/10/2024 SPEC #: [id number] RECD: 06/26/24 13:17 STATUS: GUILLAUME RECorey #: [id number] SUSIE: 06/26/24 07:[address]: Racheal Menchaca DEPT: SURGICAL PATHOLOGY RECD BY: Ramona Painting ENTERED: 06/26/24 13:39 SP TYPE: SOFT TISS OTHR DR: MD Dr. Racheal Singletary, DO Dr. Tay Farrell Dr., MD Dr. Robert Leininger, MD Dr. Robert Siska, MD Dr. Scott Wilkins, Tissues: A - Thoracic cavity, NOS B - Thoracic cavity, NOS Procedures: Surgery Specimen Level IV Comments: @ Ordering doctor for SUIV edited from to @ by GÓMEZ at 06/26/24 1356 @ Submitting doctor edited from to @ yue MAGAÑA at 06/26/24 1356 HEADER OPERATION: Debridement wound thoracic/lower cervical spinal wound PRE-OP DIAGNOSIS: Open wound of tissue overlying spine TISSUE SUBMITTED: A- Soft tissue of cervical thoracic wound *long stitch- right lateral, short stitch- short superior*, B- Sinus tract cervical thoracic wound- rule out squamous cell MICROSCOPIC DIAGNOSIS A. Soft tissue of cervical thoracic wound, excision: Focal ulceration with mild fibrosis and minimal chronic dermal inflammation. No evidence of malignancy. B. Sinus tracts cervical thoracic region, excision: Ulceration with associated acute and chronic inflammation and granulation. No evidence of malignancy. Nba 06/27/2024 MICROSCOPIC DESCRIPTION Slides are reviewed. GROSS DESCRIPTION A. Received in fixative is one container labeled with the patient's name and designated Soft tissue of cervical thoracic bone. The specimen consists of a piece of ware-white skin with underlying tissue measuring 7.0 x 1.7 x 1.7cm. Skin surface appears unremarkable. The specimen is inked as follows: superior- blue, inferior- green, lateral- black, medial- yellow. No mass lesion is identified. Laryngologist sections are submitted in two cassettes. B. Received in fixative is one container labeled with the patient's name and designated Sinus tract cervical thoracic wound. The specimen consists of two irregular pieces of ware-pink soft tissue measuring 2.5 x 0.8 x 1.0cm and 1.0 x 0.5 x 0.2cm. Larger piece is serially sectioned. The entire specimen is submitted in two cassettes. ROSIE 06/26/2024 TC:2 CPT:25162d2
--- NOTE | 2024-06-26 07:35 | RAD_ITS ---
PROCEDURE: Fluoroscopy of the cervical spine. DATE OF EXAMINATION: INDICATION: Male, 68 years old. Incision and drainage PHYSICIAN: FLUOROSCOPY TIME (if supplied): (0:06) minutes/seconds Images obtained: 2. Technique: 6 seconds of fluoroscopy the cervical spine was utilized in the operating room during surgery and T2 images are limited for interpretation. FINDINGS: Patient is status post transpedicular fixation of the cervical spine. RAD/Spine 1 View Any Level IMPRESSION: Fluoroscopy during cervical spine surgery. Electronically Signed: Andrey Young MD at 9:18 EDT ,
--- NOTE | 2024-06-26 07:52 | WOUNDNOTE ---
Pt is currently off unit for surgery.
[2024-06-26] MEDS: Sodium Hypochlorite (Dakin's) 0.125% Wound Irrigation IRRIGATION (09:05)
--- NOTE | 2024-06-26 09:33 | PCM.OPRPT ---
Report of Operation Date of Procedure: 06/26/24 Pre-Operative Diagnosis: 1. Nonhealing wound status post posterior cervical thoracic fusion Post-Operative Diagnosis: 1. Nonhealing wound status post posterior cervical thoracic fusion Surgery/Procedure Performed:: 1. Posterior cervical thoracic irrigation, debridement, wound exploration 2. Posterior cervical thoracic hardware exploration 3. Posterior cervical thoracic bone debridement Description of Surgical Findings:: STATEMENT OF MEDICAL NECESSITY: The patient is a 68-year-old male who presented with a nonhealing wound status post tumor resection surgery with subsequent posterior cervical thoracic fusion over a year ago at an outside facility. This case was discussed with plastics, Dr. Olivera, and it was agreed that the patient should undergo irrigation and debridement of the wound with hardware exploration and placement of wound VAC in preparation for possible flap closure per plastic surgery. The patient opted for operative intervention, understanding the risks to include, but not limited to infection, bleeding, damage to nerves, arteries, and veins, possibility of spinal fluid leak, paralysis, continued pain, need for further surgery, deep vein thrombosis, pulmonary embolism, heart attack, risk of stroke, or . DESCRIPTION OF PROCEDURE: The patient was seen in the preoperative holding area. The patient's identity and surgery site were confirmed. He was then transferred to the operative suite. He received preoperative IV antibiotics. After the appropriate amount of anesthesia was given, the patient was transferred to the operating table in the prone position. All bony prominences were padded accordingly. The posterior cervical thoracic spine was prepped and draped in standard surgical fashion. The previous surgery site was examined and found to have two 1 cm chronic nonhealing ulcers with minimal scant drainage. A Midline incision was made and taken down to the fascia. The fascia was divided and subperiosteal dissection taken down to the level of the posterior cervical thoracic hardware. Bony debridement was then performed and all hardware was exposed. No significant fluid collection was encountered. Some areas of necrotic tissue were found deep to the nonhealing ulcers. Multiple sets of cultures as well as soft tissue and bone samples were sent to pathology. Deep retractors were placed. The incision was then thoroughly irrigated. The wound was thoroughly explored and the hardware found to be intact. Assisting Surgeon: Dr. Oren Olivera Plastic surgery, Dr. Olivera, then proceeded with his part of the case which included soft tissue debridement and application of wound VAC. See his op note for this. Sponge, instrument, and needle counts were correct at the end of the case. The patient was extubated, taken to PACU without incident. Surgeon: Armand Menchaca ginger farmer: Oren Olivera Type of Anesthesia: General Estimated Blood Loss (mL): 20 cc Fluids Replaced: 900 cc Complications None Admit VTE Documentation VTE Present on Admission: No
--- NOTE | 2024-06-26 09:36 | PCM.POST.ANE ---
Anesthesia: Postop Eval I Current Vital Signs Temperature: 97.2 F Pulse Rate: 82 Blood Pressure: 125/74 Respiratory Rate: 20 Pulse Ox: 93 Assessment Airway patent: Yes Spontaneous unlabored respirations: Yes nausea: No Vomiting: No Anesthesia Complication: No Fluid Hydration Crystalloid volume administer (ml): 900 Total IV fluid infused: 900 Progress Note Anesthesia document: Postop Eval 1 completed: Yes
[2024-06-26 10:35] LABS: Vancomycin, Trough Level 13.6 ug/mL (5.0-15.0)
--- NOTE | 2024-06-26 10:50 | POSTOPAN2_ITS ---
Anesthesia Postop Eval I Sum Postop Eval Completion status Anesthesia document: Postop Eval 1 completed: Yes Anesthesia Postop Eval I Summary Anesthesia Postop Eval I Summary: Anesthesia Postop Eval I: Assessment Summary Airway patent Yes 06/26/24 09:36 COMMUNICATION ASSISTANT.CSIR Spontaneous unlabored Yes 06/26/24 09:36 COMMUNICATION ASSISTANT.CSIR respirations Mental status nausea No 06/26/24 09:36 COMMUNICATION ASSISTANT.CSIR Vomiting No 06/26/24 09:36 COMMUNICATION ASSISTANT.CSIR Anesthesia Postop Eval I: Fluid Summary Crystalloid volume administer 900 06/26/24 09:36 COMMUNICATION ASSISTANT.CSIR (ml) Colloids volume administered ( ml) Blood Product volume administered (ml) Total IV fluid infused 900 06/26/24 09:36 COMMUNICATION ASSISTANT.CSIR Anesthesia Postop Eval I: Summary Notes Anesthesia Complication No 06/26/24 09:36 COMMUNICATION ASSISTANT.CSIR Anesthesia Complication Comment: Post-operative progress note Anesthesia: Postop Eval II Evaluation Mental status: Awake Pain Level: 0 nausea: No Vomiting: No
--- NOTE | 2024-06-26 10:50 | PCM.POSTANE2 ---
Anesthesia Postop Eval I Sum Postop Eval Completion status Anesthesia document: Postop Eval 1 completed: Yes Anesthesia Postop Eval I Summary Anesthesia Postop Eval I Summary: Anesthesia Postop Eval I: Assessment Summary Airway patent Yes 06/26/24 09:36 [email or web address] [email or web address] Spontaneous unlabored Yes 06/26/24 09:36 BRUSHER [email or web address] respirations Mental status nausea No 06/26/24 09:36 BRUSHER [email or web address] Vomiting No 06/26/24 09:36 BRUSHER [email or web address] Anesthesia Postop Eval I: Fluid Summary Crystalloid volume administer 900 06/26/24 09:36 BRUSHER [email or web address] (ml) Colloids volume administered ( ml) Blood Product volume administered (ml) Total IV fluid infused 900 06/26/24 09:36 BRUSHER [email or web address].CSIR Anesthesia Postop Eval I: Summary Notes Anesthesia Complication No 06/26/24 09:36 BRUSHER [email or web address].CSIR Anesthesia Complication Comment: Post-operative progress note Anesthesia: Postop Eval II Evaluation Mental status: Awake Pain Level: 0 nausea: No Vomiting: No
--- NOTE | 2024-06-26 10:54 | PCM.RX.CS ---
Consult Antibiotic Management Pharmacy has been consulted to manage selected antibiotic: Vancomycin Type of Intervention Type of Consult: Follow-up Suspected Infection Suspected Infection: Skin/Soft tissue Prior Doses of Antibiotics Prior Doses of Antibiotics Received/Current Regimen: 06/22/24 @ 1129 06/23/24 @ 1128 06/24/24 @ 1204 06/25/24 @ 1048 Labs Labs: Sodium 139 mmol/L (136-145) 06/26/24 04:15 Potassium 3.9 mmol/L (3.5-5.1) 06/26/24 04:15 Chloride 104 mmol/L (98-107) 06/26/24 04:15 Carbon Dioxide 29.0 mmol/L (21.0-32.0) 06/26/24 04:15 Anion Gap 6 (5-15) 06/26/24 04:15 BUN 17 mg/dL (7-18) 06/26/24 04:15 Creatinine 1.48 mg/dL (0.70-1.30) H 06/26/24 04:15 Est GFR (MDRD) Af Amer 61 mL/min (>60) 06/26/24 04:15 Est GFR (MDRD) Non-Af 50 mL/min (>60) L 06/26/24 04:15 BUN/Creatinine Ratio 11.5 RATIO (10-20) 06/26/24 04:15 Glucose 115 mg/dL (74-106) H 06/26/24 04:15 Vancomycin Trough 13.6 ug/mL (5.0-15.0) 06/26/24 10:10 Random Vancomycin 15.0 ug/mL (0.0-15.0) 06/22/24 09:42 Microbiology Microbiology: Microbiology 06/18/24 18:25 Blood Culture (Wb) - Port Blood Culture - Final No growth in 5 days. 06/19/24 00:05 Wound - Back Gram Stain - Final 06/19/24 00:05 Wound - Back Wound Culture - Final Meth. resistant Staph. aureus Gram positive cesar 06/19/24 00:05 Wound - Back Skin and Soft Tissue MRSA/MSSA (PCR - Final Meth. resistant Staph. aureus 06/18/24 18:25 Urine, Clean Catch Urine Culture - Final Enterococcus faecalis 06/18/24 18:25 Mucosa - Nose SARS-CoV-2, Influenza & RSV (PCR) - Final Dosing Weight Weight used for dosin kg Estimated Creatinine Clearance Estimated Creatinine Clearance: 49 Goal Trough Goal Trough: 15-20 mcg/mL Pharmacy Plan for Drug Dosing Pharmacy Plan for Drug Dosing: Vancomycin trough was 13.6 on 06/26/24 Increase Vancomycin to 750mg every 12 hours. Pharmacy Service will continue to monitor and adjust dosing as required. Follow-Up Labs Follow-Up Labs: Trough: Vancomycin Date/Time Labs Ordered Labs to be done on [date and time ordered]: 06/27/24 @ 2300
[2024-06-26] MEDS: Vancomycin HCl 750 MG in 0.9% Normal Saline (250mL Bag) 250 ML 250 MG IV ×2 (11:36→23:35)
[2024-06-26] MEDS: Vancomycin Trough/Random Due 1 LAB MC (11:43)
[2024-06-26] MEDS: Menthol/Lanolin/Calamine/Znox 113 GM Tube 1 APPLIC TOPICAL ×2 (15:13→22:24)
[2024-06-26] MEDS: Gabapentin 100 MG Capsule PO ×2 (15:13→22:22)
--- NOTE | 2024-06-26 17:31 | OP.PCM_ITS ---
Operative Report Date of Procedure: 06/26/24 Surgery/Procedure Date: 26 Jun 2024 Incision/Procedure Start Time: 8:07 AM Incision Close/Procedure End Time: 9:15 AM (1 hour 8 minutes) PATIENT: Armand Barron SURGEON: Oren Olivera MD Co-Surgeon: Armand Menchaca DO PRE-OPERATIVE DIAGNOSIS: Radiated cervical/thoracic spinal wound POST-OPERATIVE DIAGNOSIS: Same PROCEDURE PERFORMED: 1) Excision/surgical preparation of wound bed including skin and subcutaneous tissue, 14 x 10 cm (CPT: 53632, 18534) 2) Biopsy/culture of spinous process, thoracic (CPT: 46167) 3) Placement of irrigating wound VAC, not disposable (CPT 69993) OPERATIVE FINDINGS: * Two sinus tracts down to soft tissue overlying the midline spine/spinous processes. The sinus tracts did not track towards the lateral hardware. * No significant fluid collections, notably no fluid collections around the hardware INDICATIONS: Armand Barron is a 68-year-old male who has a history of multiple myeloma and pathologic fractures involving his upper thoracic spine requiring fusion followed by radiation who developed chronic wounds over the spinal hardware. The hardware is obligatory and cannot be removed (spine surgeon, Dr. Menchaca, does not recommend revision of the hardware). Patient here today for excision of wound and washout as a joint case with spine surgery and plastic surgery. Patient was counseled extensively of the risks and benefits. OPERATIVE DETAILS: The patient was taken back to the operating room and administered general anesthesia and prepped in a prone position. Care was taken to pad all bony prominences, and protect the face and eyes. All proper timeouts were performed. I began the procedure by making an incision around the wound sinus tracts extending it down through the midline of the back to expose the upper thoracic spine. Bovie electrocautery was used to excise the radiated wound and sinus tracts around the 2 sinuses down to the deep soft tissues overlying the spine for surgical preparation/excision of necrotic and radiated skin and subcutaneous tissue/wound of 14 x 10 cm. I then assisted Dr. Menchaca with exposure of the spinal hardware and tangential excision of the scar and sinus tracts over the laminectomy. Please see his separate operative note for this portion of the dictation as I was the commercial lines assistant. The spinous processes of the upper thoracic spine was at the base of one of the sinus tracts and I therefore took a rongeur and biopsied the spinous process for a bone culture. Several other deep soft tissue cultures were obtained from in and around the sinus tracts. We then washed out the wound with 3 L of normal saline using a pulse lavage followed by 500 cc of Irrisept. We then placed a vera flow irrigating wound VAC on the wound and began irrigating with Dakins solution. The patient was awakened and taken to the PACU in stable condition. He tolerated the procedure quite well. EBL: 20 cc Anesthesia: General anesthesia ASA: 3 IVF: 900 cc LR UOP: 300 cc Transfusions: None Perioperative antibiotics were his Unasyn and vancomycin POST-OPERATIVE PLAN: Plastic surgery and spine surgery will follow. Plan for follow-up of cultures and continued vera flow wound VAC with Dakins. Plan for sterile VAC change under anesthesia on , 29 June 2024. Okay to restart therapeutic anticoagulation (Lovenox) tomorrow night (27 June 2024), and then hold therapeutic Lovenox the night before the VAC change (hold on 28 June 2024). Tentative muscle flap reconstruction of wound for 04 July 2024.
--- NOTE | 2024-06-26 19:29 | PN.HOSP_ITS ---
Reason for Visit Reason for Visit: Diagnoses Paraplegia, unspecified (06/18/24) Unspecified open wound of unspecified back wall of thorax without penetration into thoracic cavity, initial encounter (06/18/24) Radiation sickness, unspecified, initial encounter (06/18/24) Radiation sickness, unspecified, sequela (06/18/24) Infection following a procedure, unspecified, initial encounter (06/18/24) Subjective Subjective Patient was seen and examined today, I talked with plastic surgery about his care, it appears that his spinal hardware is not involved with the wound in his thoracic back area. Patient was eating dinner at the time of my examination and had no complaints of severe discomfort. Objective Data Objective Data Vital Signs: Vital Signs Temp Pulse Resp BP Pulse Ox O2 Del Method O2 Flow Rate 97.6 F L 64 16 120/71 96 Room Air 2 06/26/24 12:58 06/26/24 12:58 06/26/24 12:58 06/26/24 12:58 06/26/24 12:58 06/26/24 14:00 06/26/24 12:58 Oxygen Flow Rate (L/min) 2 Oxygen Delivery Method Room Air Weight: 83 kg Body Mass Index (BMI) 30.4 Intake & Output: Intake and Output for Last 24 Hours 06/24/24 06/25/24 06/26/24 23:59 23:59 23:59 Intake Total 611 / 611 611 / 611 1729 / 1729 Output Total 950 / 950 2850 / 2850 875 / 875 Balance -339 / -339 -2239 / -2239 854 / 854 Lab / Micro Data 06/26/24 04:15 06/26/24 04:15 Labs: Laboratory Results - last 24 hr 06/26/24 04:15: WBC 5.0, RBC 4.07 L, Hgb 11.6 L, Hct 37.0 L, MCV 90.9, MCH 28.5, MCHC 31.4 L, RDW Std Deviation 53.8 H, RDW Coeff of Hattie 15.9 H, Plt Count 223, MPV 10.3, Immature Gran % (Auto) 0.400, Neut % (Auto) 75.6 H, Lymph % (Auto) 10.2 L, [place] % (Auto) 8.6, Eos % (Auto) 4.8, Baso % (Auto) 0.4, Absolute Neuts (auto) 3.8, Absolute Lymphs (auto) 0.51 L, Nucleated RBC % 0, PT 13.0, INR 1.0, APTT 27.8, Sodium 139, Potassium 3.9, Chloride 104, Carbon Dioxide 29.0, Anion Gap 6, BUN 17, Creatinine 1.48 H, Estim Creat Clear Calc 48.68, Est GFR (MDRD) Af Amer 61, Est GFR (MDRD) Non-Af 50 L, BUN/Creatinine Ratio 11.5, Glucose 115 H , Calcium 9.0, Blood Type AB POSITIVE, Antibody Screen NEGATIVE, Antibody Identification Cancelled 06/26/24 10:10: Vancomycin Trough 13.6 Micro: Microbiology 06/26/24 08:45 Tissue - Cervical Gram Stain - Final 06/26/24 08:45 Bone - Back Gram Stain - Final 06/26/24 08:45 Wound - Cervical Gram Stain - Final 06/26/24 08:45 Wound - Cervical Gram Stain - Final 06/26/24 08:45 Tissue - Cervical Gram Stain - Final 06/18/24 18:25 Blood Culture (Wb) - Port Blood Culture - Final No growth in 5 days. 06/19/24 00:05 Wound - Back Gram Stain - Final 06/19/24 00:05 Wound - Back Wound Culture - Final Meth. resistant Staph. aureus Gram positive cesar 06/19/24 00:05 Wound - Back Skin and Soft Tissue MRSA/MSSA (PCR - Final Meth. resistant Staph. aureus 06/18/24 18:25 Urine, Clean Catch Urine Culture - Final Enterococcus faecalis 06/18/24 18:25 Mucosa - Nose SARS-CoV-2, Influenza & RSV (PCR) - Final Radiography Diagnostic Testing: Radiology Impression Spine X-Ray 06/26/24 07:35 IMPRESSION: Fluoroscopy during cervical spine surgery. Electronically Signed: Andrey Young MD at 9:18 EDT , Physical Exam Narrative alert, oriented x3 and no apparent distress General Appearance: cooperative, well kempt and well developed Orientation / Consciousness: awake, oriented to person, oriented to place and oriented to time HEENT normocephalic, head/scalp atraumatic and moist oral mucous membranes Eyes PERRL, EOMs intact bilaterally and conjunctivae normal Neck supple, no JVD and thyroid normal General: trachea midline Resp normal respiratory effort, no retractions, no use of accessory muscles and clear to auscultation bilaterally Auscultation: Negative for rales, rhonchi or wheezes Cardio regular rate, regular rhythm, S1 normal heart sound, S2 normal heart sound, no murmurs, no rub and no gallops GI normal to inspection, nondistended, normoactive bowel sounds, soft to palpation, non-tender and non-distended Skin Skin Narrative: Patient's nonhealing midline back wounds were not examined at this time Neuro oriented x3 and CN's II-XII intact bilaterally Neuro Narrative: Patient has lower extremity weakness Sensorium / Orientation: awake and alert Speech: speech normal Psych affect normal Assessment & Plan Assessment/Plan (1) Open wound of tissue overlying spine: QUALIFIERS: Encounter type: initial encounter Laterality: u nspecified laterality Qualified Code(s): S21.209A - Unspecified open wound of unspecified back wall of thorax without penetration into thoracic cavity, initial encounter PLAN: Plan 1. Nonhealing surgical deep wound of the upper back infected with MRSA-continue present antibiotic coverage per ID (vancomycin and Unasyn), patient underwent surgery today. He need an additional surgery next week and will remain in the hospital. 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 Total clinical time spent by myself addressing the patient's medical issues, reviewing all of his data, and collaborating with patient's care team: 35 minutes Charges/Coding Visit Charges Inpatient E&M: 08311 Subs Hosp L2
[2024-06-26] MEDS: MELATONIN 3 MG TABLET 6 MG PO (22:22)
[2024-06-26] MEDS: Baclofen 10 MG Tablet 5 MG PO (22:24)
[2024-06-26] MEDS: Metoprolol Tartrate 50 MG Tablet PO (22:25)
[2024-06-26] MEDS: Senna/Docusate Sodium 1 Tablet PO (22:26)
[2024-06-26] MEDS: Ascorbic Acid 500 MG Tablet 1000 MG PO (22:26)
[2024-06-26] MEDS: Acyclovir 200 MG Capsule 400 MG PO (22:27)
[2024-06-27 03:00] VITALS: BP 111/58; PULSE 58; RESP 16; TEMP 36.8; O2SAT 92
[2024-06-27 04:24] VITALS: BMI 31.6
[2024-06-27] MEDS: Ampicillin/Sulbactam 3 GM in 0.9% Normal Saline (100mL MB+) 100 ML IV ×3 (06:16→21:28)
[2024-06-27] MEDS: Levothyroxine 100 MCG Tablet PO (06:21)
[2024-06-27] MEDS: Gabapentin 100 MG Capsule PO ×3 (06:21→21:18)
[2024-06-27 08:12] VITALS: BP 112/64; PULSE 47; RESP 14; TEMP 36.5; O2SAT 95
[2024-06-27] MEDS: Baclofen 10 MG Tablet 5 MG PO ×2 (08:14→21:24)
[2024-06-27] MEDS: Polyethylene Glycol 3350 17 GM PACKET PO (08:14)
[2024-06-27] MEDS: Senna/Docusate Sodium 1 Tablet PO ×2 (08:15→21:24)
[2024-06-27] MEDS: Acyclovir 200 MG Capsule 400 MG PO ×2 (08:15→21:22)
[2024-06-27] MEDS: Pantoprazole Sodium 20 MG Tablet PO (08:15)
[2024-06-27] MEDS: Ascorbic Acid 500 MG Tablet 1000 MG PO ×2 (08:15→21:23)
[2024-06-27] MEDS: Ferrous Sulfate 325 MG Tablet PO (08:15)
[2024-06-27 08:16] VITALS: PULSE 47
--- NOTE | 2024-06-27 10:48 | PCM.PN.ID ---
Physical Exam Narrative Doing well since surgery, pain controlled, no fever, no n/v/d. Const alert and no apparent distress Resp normal air movement and clear to auscultation bilaterally Cardio regular rate and regular rhythm GI soft to palpation, non-tender and non-distended Skin Skin Narrative: surg dressing in place ID ID: Route of nutrition/ use of supplements: [] Nutritional Intake: [] IV Site: [] Humphries Catheter: [] Assessment & Plan Assessment/Plan (1) Open wound of tissue overlying spine: QUALIFIERS: Encounter type: initial encounter Laterality: unspecified laterality Qualified Code(s): S21.209A - Unspecified open wound of unspecified back wall of thorax without penetration into thoracic cavity, initial encounter PLAN: wound cx with MRSA and GPR (MRSA pcr positive), seen by plastic surgery and spine surgery, OR 06/26/24 for I&D down to hardware. On vanc/unasyn for now. ucx with small growth enterococcus. Will follow (2) Paraplegia:
--- NOTE | 2024-06-27 10:51 | PN.PCM_ITS ---
History of Present Illness Date of Service: 06/27/24 Chief Complaint: Non healing ulcer posterior neck History of Wound: Mr. Barron is a 68-year-old who was referred to this facility due to nonhealing ulcer posterior neck. Had surgery in October due to multiple myeloma. Surgery was uneventful with most of the surgical site healed but 2 areas which have not healed. Currently resides in an assisted living facility. Wound care - Silver dressings daily. Still follows up closely with oncology and is on monthly chemotherapy regimen and dexamethasone. He also had radiation therapy to the area. Wound culture from 12/09/23 was negative. Prealbumin from 08/13/23 was 19.8. Encouraged nutritional supplementation with protein to help the healing process. Today he denies fever. His appetite is ok. Subjective Subjective Patient doing well this morning. Minimal pain. Eating and drinking well no nausea or vomiting. Objective Data Objective Data Vital Signs: Vital Signs Temp Pulse Resp BP Pulse Ox O2 Del Method O2 Flow Rate 97.7 F L 47 L 14 112/64 95 Room Air 2 06/27/24 08:12 06/27/24 08:16 06/27/24 08:12 06/27/24 08:12 06/27/24 08:12 06/27/24 08:12 06/26/24 12:58 Oxygen Flow Rate (L/min) 2 Oxygen Delivery Method Room Air Weight: 190 lb 7.67 oz Body Mass Index (BMI) 31.6 Intake & Output: Intake and Output for Last 24 Hours 06/25/24 06/26/24 06/27/24 23:59 23:59 23:59 Intake Total 611 / 611 1841 / 1961 617 / 617 Output Total 2850 / 2850 875 / 1800 1300 / 1300 Balance -2239 / -2239 966 / 161 -683 / -683 Lab / Micro Data 06/26/24 04:15 06/26/24 04:15 Micro: Microbiology 06/26/24 08:45 Tissue - Cervical Gram Stain - Final 06/26/24 08:45 Tissue - Cervical Wound Culture - Preliminary No growth-Final to follow 06/26/24 08:45 Bone - Back Gram Stain - Final 06/26/24 08:45 Bone - Back Wound Culture - Preliminary No growth-Final to follow 06/26/24 08:45 Wound - Cervical Gram Stain - Final 06/26/24 08:45 Wound - Cervical Wound Culture - Preliminary No growth-Final to follow 06/26/24 08:45 Wound - Cervical Gram Stain - Final 06/26/24 08:45 Wound - Cervical Wound Culture - Preliminary No growth-Final to follow 06/26/24 08:45 Tissue - Cervical Gram Stain - Final 06/26/24 08:45 Tissue - Cervical Wound Culture - Preliminary Gram positive organism 06/18/24 18:25 Blood Culture (Wb) - Port Blood Culture - Final No growth in 5 days. 06/19/24 00:05 Wound - Back Gram Stain - Final 06/19/24 00:05 Wound - Back Wound Culture - Final Meth. resistant Staph. aureus Gram positive cesar 06/19/24 00:05 Wound - Back Skin and Soft Tissue MRSA/MSSA (PCR - Final Meth. resistant Staph. aureus 06/18/24 18:25 Urine, Clean Catch Urine Culture - Final Enterococcus faecalis 06/18/24 18:25 Mucosa - Nose SARS-CoV-2, Influenza & RSV (PCR) - Final Charges/Coding Procedures Integumentary [id number]: [id number] Global Visit Physical Exam Narrative That holding suction well over the cervical/thoracic spine. No blood in the VAC He is able to move his arms and legs well without any deficits. Const alert and oriented x3 HEENT normocephalic Resp normal respiratory effort Cardio regular rate and regular rhythm Extremity normal to inspection Extremity Narrative: No significant change in swelling in the lower extremities Psych Appearance: grossly normal Assessment/Plan Assessment/Plan (1) Open wound of tissue overlying spine: CODE(S): S21.209A - Unspecified open wound of unspecified back wall of thorax without penetration into thoracic cavity, initial encounter QUALIFIERS: Encounter type: initial encounter Laterality: u nspecified laterality Qualified Code(s): S21.209A - Unspecified open wound of unspecified back wall of thorax without penetration into thoracic cavity, initial encounter PLAN: Plan for OR again on , 29 June 2024, with Dr. Menchaca for intraoperative VAC change Follow-up wound cultures from the operating room, recommend ID consultation to continue Tentative plan for closure of wound on 04 July 2024. Okay to restart therapeutic Lovenox today, but please hold nighttime dose on 28 June 2024 in anticipation for the surgery on the third.
[2024-06-27] MEDS: Vancomycin HCl 750 MG in 0.9% Normal Saline (250mL Bag) 250 ML 250 MG IV (11:11)
--- NOTE | 2024-06-27 11:59 | CASEMGMT ---
LYNETTE called Valarie with [facility] and notified her that patient will be at [facility] until early next week (wk of 07-03-24). Jaclyn HAIDER
--- NOTE | 2024-06-27 12:09 | CASEMGMT ---
Discharge Planning Updates faxed to Jose. Maddi Soni DC Planning Asst.
--- NOTE | 2024-06-27 14:26 | CASEMGMT ---
SW went to patient's room to talk with patient about d/c plan. Patient was on the phone. It appeared he was paying bills. Things were not working out and patient was getting frustrated. SW told patient SW will come back as he is obviously busy. Patient told LYNETTE I am always busy what do you want. SW asked patient about his d/c plan. Patient said he plans on going back to [place]. SW asked if his home health was doing IV abx. Patient said they were managing his wounds. SW told patient SW will continue to follow along and assist with d/c planning. SW will also communicate with [place] to see if there is anything that patient would need that would prevent him from returning to [place]. Jaclyn HAIDER
[2024-06-27] MEDS: Menthol/Lanolin/Calamine/Znox 113 GM Tube 1 APPLIC TOPICAL ×2 (15:15→21:17)
[2024-06-27 15:30] VITALS: BP 120/61; PULSE 59; RESP 18; TEMP 36.6; O2SAT 97
--- NOTE | 2024-06-27 18:49 | PN.HOSP_ITS ---
Reason for Visit Reason for Visit: Diagnoses Paraplegia, unspecified (06/18/24) Unspecified open wound of unspecified back wall of thorax without penetration into thoracic cavity, initial encounter (06/18/24) Radiation sickness, unspecified, initial encounter (06/18/24) Radiation sickness, unspecified, sequela (06/18/24) Infection following a procedure, unspecified, initial encounter (06/18/24) Subjective Subjective Patient was seen and examined today, he does not complain of any severe back discomfort today. Objective Data Objective Data Vital Signs: Vital Signs Temp Pulse Resp BP Pulse Ox O2 Del Method O2 Flow Rate 97.9 F 59 L 18 120/61 97 Room Air 2 06/27/24 15:30 06/27/24 15:30 06/27/24 15:30 06/27/24 15:30 06/27/24 15:30 06/27/24 15:30 06/26/24 12:58 Oxygen Flow Rate (L/min) 2 Oxygen Delivery Method Room Air Weight: 86.4 kg Body Mass Index (BMI) 31.6 Intake & Output: Intake and Output for Last 24 Hours 06/25/24 06/26/24 06/27/24 23:59 23:59 23:59 Intake Total 611 / 611 1841 / 1961 1494 / 1494 Output Total 2850 / 2850 875 / 1800 2500 / 2500 Balance -2239 / -2239 966 / 161 -1006 / -1006 Lab / Micro Data 06/26/24 04:15 06/26/24 04:15 Micro: Microbiology 06/26/24 08:45 Tissue - Cervical Gram Stain - Final 06/26/24 08:45 Tissue - Cervical Wound Culture - Preliminary No growth-Final to follow 06/26/24 08:45 Bone - Back Gram Stain - Final 06/26/24 08:45 Bone - Back Wound Culture - Preliminary No growth-Final to follow 06/26/24 08:45 Wound - Cervical Gram Stain - Final 06/26/24 08:45 Wound - Cervical Wound Culture - Preliminary No growth-Final to follow 06/26/24 08:45 Wound - Cervical Gram Stain - Final 06/26/24 08:45 Wound - Cervical Wound Culture - Preliminary No growth-Final to follow 06/26/24 08:45 Tissue - Cervical Gram Stain - Final 06/26/24 08:45 Tissue - Cervical Wound Culture - Preliminary Gram positive organism 06/18/24 18:25 Blood Culture (Wb) - Port Blood Culture - Final No growth in 5 days. 06/19/24 00:05 Wound - Back Gram Stain - Final 06/19/24 00:05 Wound - Back Wound Culture - Final Meth. resistant Staph. aureus Gram positive cesar 06/19/24 00:05 Wound - Back Skin and Soft Tissue MRSA/MSSA (PCR - Final Meth. resistant Staph. aureus 06/18/24 18:25 Urine, Clean Catch Urine Culture - Final Enterococcus faecalis 06/18/24 18:25 Mucosa - Nose SARS-CoV-2, Influenza & RSV (PCR) - Final Physical Exam Narrative alert, oriented x3 and no apparent distress General Appearance: cooperative, well kempt and well developed Orientation / Consciousness: awake, oriented to person, oriented to place and oriented to time HEENT normocephalic, head/scalp atraumatic and moist oral mucous membranes Eyes PERRL, EOMs intact bilaterally and conjunctivae normal Neck supple, no JVD and thyroid normal General: trachea midline Resp normal respiratory effort, no retractions, no use of accessory muscles and clear to auscultation bilaterally Auscultation: Negative for rales, rhonchi or wheezes Cardio regular rate, regular rhythm, S1 normal heart sound, S2 normal heart sound, no murmurs, no rub and no gallops GI normal to inspection, nondistended, normoactive bowel sounds, soft to palpation, non-tender and non-distended Skin Skin Narrative: Patient's nonhealing midline back wounds were not examined at this time Neuro oriented x3 and CN's II-XII intact bilaterally Neuro Narrative: Patient has lower extremity weakness Sensorium / Orientation: awake and alert Speech: speech normal Psych affect normal Assessment & Plan Assessment/Plan (1) Open wound of tissue overlying spine: QUALIFIERS: Encounter type: initial encounter Laterality: u nspecified laterality Qualified Code(s): S21.209A - Unspecified open wound of unspecified back wall of thorax without penetration into thoracic cavity, initial encounter PLAN: Plan 1. 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 He need an additional surgery next week and will remain in the hospital. 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
[2024-06-27] MEDS: Enoxaparin 40 MG/0.4 ML Syringe SC (19:48)
[2024-06-27 20:00] VITALS: BP 119/64; PULSE 61; RESP 16; TEMP 36.7; O2SAT 95
[2024-06-27] MEDS: MELATONIN 3 MG TABLET 6 MG PO (21:18)
[2024-06-27 21:22] VITALS: BP 127/66; PULSE 71
[2024-06-27] MEDS: Metoprolol Tartrate 50 MG Tablet PO (21:22)
[2024-06-27 23:54] LABS: Vancomycin, Trough Level 20.5 ug/mL (5.0-15.0)
[2024-06-28] MEDS: Vancomycin HCl 750 MG in 0.9% Normal Saline (250mL Bag) 250 ML 250 MG IV ×3 (00:06→23:35)
--- NOTE | 2024-06-28 00:06 | PCM.RX.CS ---
Consult Antibiotic Management Pharmacy has been consulted to manage selected antibiotic: Vancomycin Type of Intervention Type of Consult: Follow-up Suspected Infection Suspected Infection: Skin/Soft tissue Labs Labs: Sodium 139 mmol/L (136-145) 06/26/24 04:15 Potassium 3.9 mmol/L (3.5-5.1) 06/26/24 04:15 Chloride 104 mmol/L (98-107) 06/26/24 04:15 Carbon Dioxide 29.0 mmol/L (21.0-32.0) 06/26/24 04:15 Anion Gap 6 (5-15) 06/26/24 04:15 BUN 17 mg/dL (7-18) 06/26/24 04:15 Creatinine 1.48 mg/dL (0.70-1.30) H 06/26/24 04:15 Est GFR (MDRD) Af Amer 61 mL/min (>60) 06/26/24 04:15 Est GFR (MDRD) Non-Af 50 mL/min (>60) L 06/26/24 04:15 BUN/Creatinine Ratio 11.5 RATIO (10-20) 06/26/24 04:15 Glucose 115 mg/dL (74-106) H 06/26/24 04:15 Vancomycin Trough 20.5 ug/mL (5.0-15.0) H 06/27/24 23:10 Random Vancomycin 15.0 ug/mL (0.0-15.0) 06/22/24 09:42 Microbiology Microbiology: Microbiology 06/26/24 08:45 Tissue - Cervical Gram Stain - Final 06/26/24 08:45 Tissue - Cervical Wound Culture - Preliminary No growth-Final to follow 06/26/24 08:45 Bone - Back Gram Stain - Final 06/26/24 08:45 Bone - Back Wound Culture - Preliminary No growth-Final to follow 06/26/24 08:45 Wound - Cervical Gram Stain - Final 06/26/24 08:45 Wound - Cervical Wound Culture - Preliminary No growth-Final to follow 06/26/24 08:45 Wound - Cervical Gram Stain - Final 06/26/24 08:45 Wound - Cervical Wound Culture - Preliminary No growth-Final to follow 06/26/24 08:45 Tissue - Cervical Gram Stain - Final 06/26/24 08:45 Tissue - Cervical Wound Culture - Preliminary Gram positive organism 06/18/24 18:25 Blood Culture (Wb) - Port Blood Culture - Final No growth in 5 days. 06/19/24 00:05 Wound - Back Gram Stain - Final 06/19/24 00:05 Wound - Back Wound Culture - Final Meth. resistant Staph. aureus Gram positive cesar 06/19/24 00:05 Wound - Back Skin and Soft Tissue MRSA/MSSA (PCR - Final Meth. resistant Staph. aureus 06/18/24 18:25 Urine, Clean Catch Urine Culture - Final Enterococcus faecalis 06/18/24 18:25 Mucosa - Nose SARS-CoV-2, Influenza & RSV (PCR) - Final Dosing Weight Weight used for dosin.4 kg Estimated Creatinine Clearance Estimated Creatinine Clearance: 49 Goal Trough Goal Trough: 15-20 mcg/mL Pharmacy Plan for Drug Dosing Pharmacy Plan for Drug Dosing: Vancomycin trough level of 20.5, drawn 12hrs post-dose, was just over the top of the target range of 15-20. Will continue dosing at 750mg q12h, and will draw another trough level in two days. Pharmacy Service will continue to monitor and adjust dosing as required. Follow-Up Labs Follow-Up Labs: Trough: Vancomycin Date/Time Labs Ordered Labs to be done on [date and time ordered]: 06/29/24 @2300
[2024-06-28 02:51] VITALS: BP 113/64; PULSE 51; RESP 16; TEMP 36.7; O2SAT 95
[2024-06-28] MEDS: Gabapentin 100 MG Capsule PO ×3 (05:30→22:23)
[2024-06-28] MEDS: Levothyroxine 100 MCG Tablet PO (05:30)
[2024-06-28] MEDS: Ampicillin/Sulbactam 3 GM in 0.9% Normal Saline (100mL MB+) 100 ML IV ×3 (05:30→22:23)
[2024-06-28 05:49] VITALS: BMI 31.8
--- NOTE | 2024-06-28 07:51 | PN.SURG_ITS ---
Subjective Subjective Doing well today. Pain controlled. Objective Data Objective Data Vital Signs: Vital Signs Temp Pulse Resp BP Pulse Ox O2 Del Method O2 Flow Rate 98.1 F 51 L 16 113/64 95 Room Air 2 06/28/24 02:51 06/28/24 02:51 06/28/24 02:51 06/28/24 02:51 06/28/24 02:51 06/28/24 03:00 06/26/24 12:58 Oxygen Flow Rate (L/min) 2 Oxygen Delivery Method Room Air Weight: 191 lb 2.252 oz Body Mass Index (BMI) 31.8 Intake & Output: Intake and Output for Last 24 Hours 06/26/24 06/27/24 06/28/24 23:59 23:59 23:59 Intake Total 1841 / 1961 1606 / 1726 1359.5 / 1359.5 Output Total 875 / 1800 2500 / 2500 1900 / 1900 Balance 966 / 161 -894 / -774 -540.5 / -540.5 Lab / Micro Data 06/26/24 04:15 06/26/24 04:15 Labs: Laboratory Results - last 24 hr 06/27/24 23:10: Vancomycin Trough 20.5 H Micro: Microbiology 06/26/24 08:45 Tissue - Cervical Gram Stain - Final 06/26/24 08:45 Tissue - Cervical Wound Culture - Final Staphylococcus lugdunensis 06/26/24 08:45 Tissue - Cervical Gram Stain - Final 06/26/24 08:45 Tissue - Cervical Wound Culture - Preliminary No growth-Final to follow 06/26/24 08:45 Bone - Back Gram Stain - Final 06/26/24 08:45 Bone - Back Wound Culture - Preliminary No growth-Final to follow 06/26/24 08:45 Wound - Cervical Gram Stain - Final 06/26/24 08:45 Wound - Cervical Wound Culture - Preliminary No growth-Final to follow 06/26/24 08:45 Wound - Cervical Gram Stain - Final 06/26/24 08:45 Wound - Cervical Wound Culture - Preliminary No growth-Final to follow 06/18/24 18:25 Blood Culture (Wb) - Port Blood Culture - Final No growth in 5 days. 06/19/24 00:05 Wound - Back Gram Stain - Final 06/19/24 00:05 Wound - Back Wound Culture - Final Meth. resistant Staph. aureus Gram positive cesar 06/19/24 00:05 Wound - Back Skin and Soft Tissue MRSA/MSSA (PCR - Final Meth. resistant Staph. aureus 06/18/24 18:25 Urine, Clean Catch Urine Culture - Final Enterococcus faecalis 06/18/24 18:25 Mucosa - Nose SARS-CoV-2, Influenza & RSV (PCR) - Final Physical Exam Narrative That holding suction well over the cervical/thoracic spine. No blood in the VAC He is able to move his arms and legs well without any deficits. Const alert and oriented x3 HEENT normocephalic Resp normal respiratory effort Cardio regular rate and regular rhythm Extremity normal to inspection Extremity Narrative: No significant change in swelling in the lower extremities No calf pain with dorsiflexion of either ankle Psych Appearance: grossly normal Assessment & Plan Assessment/Plan (1) Open wound of tissue overlying spine: QUALIFIERS: Encounter type: initial encounter Laterality: u nspecified laterality Qualified Code(s): S21.209A - Unspecified open wound of unspecified back wall of thorax without penetration into thoracic cavity, initial encounter PLAN: PLAN: Plan for OR again on , 29 June 2024, with Dr. Menchaca for intraoperative VAC change (TOMORROW) NPO at midnight Follow-up wound cultures from the operating room, recommend ID consultation to continue Tentative plan for closure of wound on 04 July 2024. Charges/Coding Procedures Integumentary [id number]: [id number] Global Visit
[2024-06-28 09:00] VITALS: BP 126/65; PULSE 54; RESP 17; TEMP 36.6; O2SAT 95
[2024-06-28] MEDS: Ferrous Sulfate 325 MG Tablet PO (09:03)
[2024-06-28] MEDS: Pantoprazole Sodium 20 MG Tablet PO (09:03)
[2024-06-28] MEDS: amLODIPine 10 MG Tablet PO (09:04)
[2024-06-28] MEDS: Ascorbic Acid 500 MG Tablet 1000 MG PO ×2 (09:04→22:27)
[2024-06-28] MEDS: Acyclovir 200 MG Capsule 400 MG PO ×2 (09:04→22:31)
[2024-06-28] MEDS: Polyethylene Glycol 3350 17 GM PACKET PO (09:05)
[2024-06-28] MEDS: Senna/Docusate Sodium 1 Tablet PO ×2 (09:05→22:25)
[2024-06-28] MEDS: Baclofen 10 MG Tablet 5 MG PO (09:05)
--- NOTE | 2024-06-28 09:19 | WOUNDNOTE ---
wound VAC dressing remains intact to the mid upper back. good seal noted at 125mmHg. still plenty of Dakins solution on bottle, but may need changed later today or tonight. plan is for another washout and VAC change in the OR tomorrow and then flap surgery on 07/04/[address] Olivera. will monitor.
--- NOTE | 2024-06-28 09:28 | PN.HOSP_ITS ---
Reason for Visit Reason for Visit: Diagnoses Paraplegia, unspecified (06/18/24) Unspecified open wound of unspecified back wall of thorax without penetration into thoracic cavity, initial encounter (06/18/24) Radiation sickness, unspecified, initial encounter (06/18/24) Radiation sickness, unspecified, sequela (06/18/24) Infection following a procedure, unspecified, initial encounter (06/18/24) Subjective Subjective Patient is a 68-year-old gentleman with history of previous radiation to the back from multiple myeloma who presented with nonhealing ulceration Objective Data Objective Data Vital Signs: Vital Signs Temp Pulse Resp BP Pulse Ox O2 Del Method O2 Flow Rate 97.9 F 54 L 17 126/65 H 95 Room Air 2 06/28/24 09:00 06/28/24 09:00 06/28/24 09:00 06/28/24 09:00 06/28/24 09:00 06/28/24 09:00 06/26/24 12:58 Oxygen Flow Rate (L/min) 2 Oxygen Delivery Method Room Air Weight: 86.7 kg Body Mass Index (BMI) 31.8 Intake & Output: Intake and Output for Last 24 Hours 06/26/24 06/27/24 06/28/24 23:59 23:59 23:59 Intake Total 1841 / 1961 1606 / 1726 1359.5 / 1359.5 Output Total 875 / 1800 2500 / 2500 1900 / 1900 Balance 966 / 161 -894 / -774 -540.5 / -540.5 Lab / Micro Data 06/26/24 04:15 06/26/24 04:15 Labs: Laboratory Results - last 24 hr 06/27/24 23:10: Vancomycin Trough 20.5 H Micro: Microbiology 06/26/24 08:45 Tissue - Cervical Gram Stain - Final 06/26/24 08:45 Tissue - Cervical Wound Culture - Preliminary No growth-Final to follow 06/26/24 08:45 Tissue - Cervical Anaerobic Culture - Preliminary No growth in 48 hours. 06/26/24 08:45 Bone - Back Gram Stain - Final 06/26/24 08:45 Bone - Back Wound Culture - Preliminary No growth-Final to follow 06/26/24 08:45 Bone - Back Anaerobic Culture - Preliminary No growth in 48 hours. 06/26/24 08:45 Wound - Cervical Gram Stain - Final 06/26/24 08:45 Wound - Cervical Wound Culture - Preliminary GPC Poss Enterococcus sp 06/26/24 08:45 Wound - Cervical Anaerobic Culture - Preliminary No growth in 48 hours. 06/26/24 08:45 Wound - Cervical Gram Stain - Final 06/26/24 08:45 Wound - Cervical Wound Culture - Preliminary No growth-Final to follow 06/26/24 08:45 Wound - Cervical Anaerobic Culture - Preliminary No growth in 48 hours. 06/26/24 08:45 Tissue - Cervical Gram Stain - Final 06/26/24 08:45 Tissue - Cervical Wound Culture - Final Staphylococcus lugdunensis 06/26/24 08:45 Tissue - Cervical Anaerobic Culture - Preliminary 06/18/24 18:25 Blood Culture (Wb) - Port Blood Culture - Final No growth in 5 days. 06/19/24 00:05 Wound - Back Gram Stain - Final 06/19/24 00:05 Wound - Back Wound Culture - Final Meth. resistant Staph. aureus Gram positive cesar 06/19/24 00:05 Wound - Back Skin and Soft Tissue MRSA/MSSA (PCR - Final Meth. resistant Staph. aureus 06/18/24 18:25 Urine, Clean Catch Urine Culture - Final Enterococcus faecalis 06/18/24 18:25 Mucosa - Nose SARS-CoV-2, Influenza & RSV (PCR) - Final Physical Exam Narrative GENERAL: cooperative HEENT: Atraumatic; normocephalic EYES; Anicteric, Normal Conjunctiva NECK; supple, normal thyroid, RESPIRATORY: Diminished to auscultation CARDIOVASCULAR: Regular S1 S2, GI: soft, normoactive bowel sounds, : No Renal angle tenderness; EXTREMITIES: No edema, no clubbing, MUSCULOSKELETAL: no muscle wasting NEURO: Awake; oriented to place and person SKIN: Wound VAC upper back PSYCH; Flat affect Assessment & Plan Assessment/Plan (1) Open wound of tissue overlying spine: QUALIFIERS: Encounter type: initial encounter Laterality: u nspecified laterality Qualified Code(s): S21.209A - Unspecified open wound of unspecified back wall of thorax without penetration into thoracic cavity, initial encounter PLAN: Plan Patient is a 68-year-old gentleman with history of previous radiation to the back from multiple myeloma who presented with nonhealing ulceration 1. 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 Underwent Posterior cervical thoracic irrigation, debridement, wound exploration; Posterior cervical thoracic hardware exploration; Posterior cervical thoracic bone debridement on 06/26/2024. Plan is for patient to undergo intraoperative VAC change on 06/29/[address] Tijerina and Dr. Keene. ID on board managing antibiotic therapy 2. 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 This complicates patient's care. Patient walks with a walker 3. Class I obesity with BMI of 31.8 ? Weight loss advised 4. Hypertension ? Blood pressure controlled, home medications continued with dose adjustment as needed 5. Multiple myeloma ? Patient is followed by Dr. Perez patient previously treated with thoracic decompression in October 2022, radiation therapy in December 2022 to T1-2 8. Patient did receive daratumumab Revlimid starting February 2023 (initially 25 mg then reduced to 15 Mg 3 weeks on 1 week off) and dexamethasone. [place] Holiday from Revlimid March 2024? 6. Hypothyroidism ? Patient is on levothyroxine home dose continued 7. Previous history of VTE ? Patient is on apixaban; Held in anticipation of surgical intervention started on enoxaparin 8. DVT prophylaxis ? On enoxaparin Time spent in the patient's overall evaluation,decision-making process, review of diagnostic data, adjustment of management, discussion with other providers, nursing nursing and ancillary staff involved in patient's care documentation, 40 Minutes Charges/Coding Visit Charges Inpatient E&M: 94437 Subs Hosp L2
[2024-06-28] MEDS: 0.9% Saline Lock 10 ML Syringe IV (11:31)
[2024-06-28] MEDS: 0.9% Normal Saline (250mL Bag) 250 ML 15 ML IV (11:38)
[2024-06-28] MEDS: Menthol/Lanolin/Calamine/Znox 113 GM Tube 1 APPLIC TOPICAL ×2 (14:12→22:33)
[2024-06-28 15:20] VITALS: BP 119/61; PULSE 61; RESP 16; TEMP 36.5; O2SAT 98
[2024-06-28 20:53] VITALS: BP 129/70; PULSE 60; RESP 16; TEMP 36.3; O2SAT 100
[2024-06-28] MEDS: MELATONIN 3 MG TABLET 6 MG PO (22:23)
[2024-06-28 22:55] VITALS: PULSE 57
[2024-06-29] VITALS (14 sets, daily range): BP systolic 117–141; BP diastolic 58–82; PULSE 57–95; RESP 16–20; TEMP 36.3–36.8; O2SAT 89–99; BMI 31.7
[2024-06-29] MEDS: Ampicillin/Sulbactam 3 GM in 0.9% Normal Saline (100mL MB+) 100 ML IV ×3 (05:29→20:52)
[2024-06-29 06:27] LABS: Absolute Lymphocyte Count 0.61 X10^3/uL (0.83-4.51); Absolute Neutrophil Count 3.6 X10^3/uL (2.0-7.7); Basophil# 0.04 X10^3/uL; Basophil% 0.8 % (0-1); Eosinophil# 0.31 X10^3/uL; Eosinophils% 6.2 % (0-5); Hematocrit 33.6 % (40-54); Hemoglobin 10.5 g/dL (13.0-16.5); Lymphocyte # 0.61 X10^3/ul (0.83-4.51); Lymphocyte % 12.2 % (19-41); Mean Corp Hgb Conc 31.3 g/dL (32-36); Mean Corpuscular Hgb 28.5 pg (27.0-32.0); Mean Corpuscular Volume 91.1 fL (80-94); Mean Platelet Vol. 10.1 fl (6.2-12.0); Monocyte# 0.47 X10^3/uL; Monocyte% 9.4 % (0-10); NRBC Flagged by Analyzer 0 % (0-5); Neutrophil # 3.55 X10^3/uL (2.7-7.7); Neutrophil % 70.8 % (47-70); Platelet Count 268 K/mm3 (150-450); RBC Distribution Width CV 16.4 % (11.6-14.6); RBC Distribution Width SD 54.4 fl (35.1-43.9); Red Blood Count 3.69 M/mm3 (4.6-6.2)
[2024-06-29 06:30] LABS: Prothrombin Time (Protime)PT. 13.2 SECONDS (11.7-14.9)
[2024-06-29 06:31] LABS: Partial Thromboplast Time 26.6 Seconds (24.1-36.2)
--- NOTE | 2024-06-29 06:46 | PCM.HP.STD ---
HPI - General General Date of Admission: 06/18/24 Chief Complaint: Dyspnea HPI Narrative RACHEAL BURLESON, is a 68 M who presents spinal wound. Current Encounter (DATE OF SURGERY H&P UPDATE): I saw and examined the patient this morning on the floor. We discussed risks and benefits of today's surgery and they would like to proceed. NO CHANGE in health history since last seen and evaluated. Ready to proceed with surgery. Of note, I talked to him about doing the incentive spirometer. He declined to do this morning, but agreed to start working on it. I discussed risks of pneumonia. 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 History of radiation therapy Non-healing surgical wound Paraplegia Anemia Multiple myeloma DVT (deep venous thrombosis) Back pain Hypothyroidism Hypertension Hypercholesteremia Home Medications ?Medication ?Instructions ?Recorded ?Last Taken ?Type acetaminophen 500 mg capsule 500 mg PO Q6H PRN fever or pain 07/08/23 Unknown History acyclovir 400 mg tablet 400 mg PO Q12H 07/08/23 Unknown History amlodipine 10 mg tablet 10 mg PO DAILY bp 07/08/23 Unknown History ascorbic acid (vitamin C) 1,000 mg 1 g PO BID supplement 07/08/23 Unknown History tablet cholecalciferol (vitamin D3) 125 125 mcg PO DAILY supplement 07/08/23 Unknown History mcg (5,000 unit) capsule diphenhydramine HCl 25 mg capsule 25 mg PO ONCE PRN itching 07/08/23 Unknown History (Benadryl) gabapentin 100 mg capsule 100 mg PO TID back 07/08/23 Unknown History magnesium oxide 250 mg PO .noon bowel health 07/08/23 Unknown History melatonin 3 mg capsule 6 mg PO HS sleep 07/08/23 Unknown History metoprolol tartrate 50 mg tablet 50 mg PO BID 07/08/23 Unknown History omeprazole 20 mg tablet,delayed 20 mg PO DAILY gerd 07/08/23 Unknown History release sennosides 8.6 mg-docusate sodium 1 tab-cap PO BID constipation 07/08/23 Unknown History 50 mg tablet (Senna Plus) simethicone 80 mg chewable tablet 80 mg PO TID PRN abdominal 07/08/23 Unknown History (Gas Relief (simethicone)) distention Disability Placard #1 ea 07/12/23 Unknown Rx ferrous sulfate 325 mg (65 mg 325 mg PO DAILY supplement 07/12/23 Unknown History iron) tablet apixaban 5 mg tablet (Eliquis) 5 mg PO BID vte prophylaxis 07/17/23 Unknown History baclofen 5 mg tablet 5 mg PO BID back pain 08/12/23 Unknown History benzonatate 200 mg capsule 200 mg PO TID PRN cough 08/12/23 Unknown History calcium carbonate 600 mg PO BID supplement 08/12/23 Unknown History levothyroxine 100 mcg tablet 100 mcg PO DAILY thyroid 08/12/23 Unknown History (Levo-T) magnesium hydroxide 400 mg/5 mL 30 ml PO DAILY PRN constipation 08/12/23 Unknown History oral suspension (Milk of Magnesia) polyethylene glycol 3350 17 17 g PO DAILY constipation 08/12/23 Unknown History gram/dose oral powder (ClearLax) lenalidomide 15 mg capsule 15 mg .Route .COMPLEX #21 CAPSULES 04/04/24 Unknown Rx (Revlimid) arginine 7 gram-glutamine 7 1 ea PO DAILY wound 06/18/24 Unknown History gram-calcium HMB 1.5 gram oral powder pack (Ariel) bisacodyl 10 mg rectal suppository 10 mg ND DAILY PRN PRN constipation 06/18/24 Unknown History (Dulcolax (bisacodyl)) sulfamethoxazole 800 1 tab PO Q12H antibiotic 06/18/24 Unknown History mg-trimethoprim 160 mg tablet dexamethasone 4 mg tablet 20 mg PO Q28D myeloma 06/19/24 Unknown History Allergy/AdvReac Type Severity Reaction Status Date / Time No Known Allergies Allergy Verified 06/18/24 17:37 Family History Mother Follicular lymphoma Father Hypertension Heart disease Brother Hypertension Other Cancer Surgical History History of back surgery History of tooth extraction H/O laminectomy History of cholecystectomy Social History housing: assisted living facility Smoking Status: Never smoker alcohol intake: former substance use type: does not use Vital Signs Vital Signs Vital Signs: 10/02/24 08:31 06/28/24 08:58 06/28/24 09:00 Temperature 97.9 F Temperature Source Temporal Pulse Rate 54 L Pulse Strength Normal (2+) Respiratory Rate 17 Respiratory Effort Respiratory Depth Respiratory Pattern Blood Pressure 126/65 H Blood Pressure Mean 85 Blood Pressure Source Monitor Blood Pressure Position Semi-Fowlers Blood Pressure Location Left Arm Pulse Ox 95 Oxygen Delivery Method Room Air Room Air 06/28/24 15:20 06/28/24 20:53 06/28/24 22:00 Temperature 97.7 F L 97.4 F L Temperature Source Temporal Oral Pulse Rate 61 60 Pulse Strength Respiratory Rate 16 16 Respiratory Effort Respiratory Depth Respiratory Pattern Blood Pressure 119/61 129/70 H Blood Pressure Mean 80 89 Blood Pressure Source Monitor Monitor Blood Pressure Position Sitting Semi-Fowlers Blood Pressure Location Left Arm Left Arm Pulse Ox 98 100 Oxygen Delivery Method Room Air Room Air Room Air 06/28/24 22:55 06/29/24 04:02 06/29/24 04:08 Temperature 97.4 F L Temperature Source Temporal Pulse Rate 57 L 58 L Pulse Strength Respiratory Rate 16 Respiratory Effort Normal Respiratory Depth Normal Respiratory Pattern Normal Blood Pressure 117/58 L Blood Pressure Mean 77 Blood Pressure Source Monitor Blood Pressure Position Semi-Fowlers Blood Pressure Location Left Arm Pulse Ox 94 Oxygen Delivery Method Room Air Room Air Weight Weight: 190 lb 11.198 oz Body Mass Index (BMI) 31.7 Physical Exam Narrative Upper thoracic/lower cervical spine with VAC in place, holding suction. Const oriented x3 and no apparent distress Resp normal respiratory effort Resp Narrative: Declined IS today Cardio regular rate Extremity Extremity Narrative: No change in size of legs/swelling. SCDs on and activated. Results Lab / Micro Data 06/29/24 05:23 06/26/24 04:15 Labs: Laboratory Results - last 24 hr 06/29/24 05:23: WBC 5.0, RBC 3.69 L, Hgb 10.5 L, Hct 33.6 L, MCV 91.1, MCH 28.5, MCHC 31.3 L, RDW Std Deviation 54.4 H, RDW Coeff of Hattie 16.4 H, Plt Count 268, MPV 10.1, Immature Gran % (Auto) 0.600, Neut % (Auto) 70.8 H, Lymph % (Auto) 12.2 L, Gulf % (Auto) 9.4, Eos % (Auto) 6.2 H, Baso % (Auto) 0.8, Absolute Neuts (auto) 3.6, Absolute Lymphs (auto) 0.61 L, Nucleated RBC % 0, PT 13.2, INR 1.0, APTT 26.6 Micro: Microbiology 06/26/24 08:45 Tissue - Cervical Gram Stain - Final 06/26/24 08:45 Tissue - Cervical Wound Culture - Preliminary No growth-Final to follow 06/26/24 08:45 Tissue - Cervical Anaerobic Culture - Preliminary No growth in 48 hours. 06/26/24 08:45 Bone - Back Gram Stain - Final 06/26/24 08:45 Bone - Back Wound Culture - Preliminary No growth-Final to follow 06/26/24 08:45 Bone - Back Anaerobic Culture - Preliminary No growth in 48 hours. 06/26/24 08:45 Wound - Cervical Gram Stain - Final 06/26/24 08:45 Wound - Cervical Wound Culture - Preliminary GPC Poss Enterococcus sp 06/26/24 08:45 Wound - Cervical Anaerobic Culture - Preliminary No growth in 48 hours. 06/26/24 08:45 Wound - Cervical Gram Stain - Final 06/26/24 08:45 Wound - Cervical Wound Culture - Preliminary No growth-Final to follow 06/26/24 08:45 Wound - Cervical Anaerobic Culture - Preliminary No growth in 48 hours. 06/26/24 08:45 Tissue - Cervical Gram Stain - Final 06/26/24 08:45 Tissue - Cervical Wound Culture - Final Staphylococcus lugdunensis 06/26/24 08:45 Tissue - Cervical Anaerobic Culture - Preliminary Assessment & Plan Assessment/Plan (1) Open wound of tissue overlying spine: QUALIFIERS: Encounter type: initial encounter Laterality: unspecified laterality Qualified Code(s): S21.209A - Unspecified open wound of unspecified back wall of thorax without penetration into thoracic cavity, initial encounter PLAN: Plan INTERVAL H&P PLAN, DATE OF SURGERY: We will proceed with surgery today.
[2024-06-29 07:07] LABS: Anion Gap 5 (5-15); BUN 28 mg/dL (7-18); BUN/Creat Ratio 21.2 RATIO (10-20); Calcium,Total 9.3 mg/dL (8.5-10.1); Chloride 106 mmol/L (98-107); Creatinine, Serum 1.32 mg/dL (0.70-1.30); EST Glomerular Filtration Rate 58 mL/min (>60); Est Glom Filt Rate - Afr Amer 70 mL/min (>60); Estimated Creatinine Clearance 55.67 ml/min; Glucose 100 mg/dL (74-106); Magnesium 1.6 mg/dL (1.6-2.6); Phosphorus 3.6 mg/dL (2.5-4.9); Sodium Level 140 mmol/L (136-145)
--- NOTE | 2024-06-29 08:44 | WOUNDNOTE ---
Pt is currently off unit for surgery.
--- NOTE | 2024-06-29 08:46 | PCM.PRE.AN2 ---
ASA Classification* ASA Classification ASA Classification: 3 Assessment & Plan Anesthesia* Anesthesia Assessment Anesthesia Assessment: Discussed sedation and/or anesthesia options, risks, benefits, and alternatives with patient/parents/legal guardian/POA. Questions invited. The patient/parents/legal guardian/POA seems to understand and agrees to proceed with anesthesia plan. Reviewed the physical assessment, medical history, allergy history and patient home medications list prior to surgery/procedure/anesthetic and documented any changes. Performed airway and anesthesia risk assessments. Anesthesia Type Anesthesia Type: MAC (GA bkup, no Sux) Anesthesia Focused Assessment* Temperature: 97.5 F Pulse Rate: 57 Blood Pressure: 132/64 Respiratory Rate: 16 Pulse Ox: 95 Airway Assessment Mouth opens: >3 cm Mallampati Score: II Focused Labs Anesthesia Preop lab: CBC WBC 5.0 K/mm3 (4.4-11.0) 06/29/24 05:23 RBC 3.69 M/mm3 (4.6-6.2) L 06/29/24 05:23 Hgb 10.5 g/dL (13.0-16.5) L 06/29/24 05:23 Hct 33.6 % (40-54) L 06/29/24 05:23 Plt Count 268 K/mm3 (150-450) 06/29/24 05:23 CHEMISTRY Potassium 4.0 mmol/L (3.5-5.1) 06/29/24 05:23 Sodium 140 mmol/L (136-145) 06/29/24 05:23 Magnesium 1.6 mg/dL (1.6-2.6) 06/29/24 05:23 Phosphorus 3.6 mg/dL (2.5-4.9) 06/29/24 05:23 BUN 28 mg/dL (7-18) H 06/29/24 05:23 Creatinine 1.32 mg/dL (0.70-1.30) H 06/29/24 05:23 Glucose 100 mg/dL (74-106) 06/29/24 05:23 TSH 2.44 uIU/mL (0.358-3.74) 01/13/24 06:20 COAG PT 13.2 SECONDS (11.7-14.9) 06/29/24 05:23 Pre-Assessment Diagnosis/Proposed Procedure Planned Operative Procedure(s): I&D abscess Back, Wound Vac application Anesthesia History 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 When Was Last Pacemaker Check QUESTION #4 FULL TEXT: You/Your Family Experience fever (hyperthermia) with Anesthesia Last Oral Intake Last Oral intake: Last Oral Intake NPO since 00:00 06/29/24 06:00 Meds taken in AM with sips of No 06/26/24 05:15 water? Meds patient instructed to take am of surgery PONV PONV - sheep farm manager: PONV - sheep farm manager Female HX of Motion Sickness HX of N/V After Surgery Non-Smoker Duration of Surgery greater than 60 minutes Number of Risk Factors PONV Score Height & Weight Height & Weight: Anesthesia: Height & Weight Height 5 ft 5 in 06/29/24 06:00 Weight: 86.5 kg 06/29/24 06:00 Body Mass Index (BMI) 31.7 06/29/24 06:00 Respiratory Assessment Respiratory Assessment - sheep farm manager: Respiratory Tract Infection Hx - sheep farm manager Hx Respiratory Tract Infection No 06/29/24 00:21 STOP Sleep Apnea STOP Sleep Apnea - sheep farm manager: STOP Sleep Apnea - sheep farm manager Hx Hypertension Yes 06/19/24 16:29 Hx Sleep Apnea No 06/26/24 10:21 CPAP BIPAP Do you snore loudly (louder No 06/18/24 23:11 than talking or can be heard Do you often feel tired/ No 06/18/24 23:11 fatigued/ sleepy during daytime? Has anyone observed you stop No 06/18/24 23:11 breathing during sleep? STOP Results Negative 06/18/24 23:11 QUESTION #5 FULL TEXT : Do you snore loudly (louder than talking or can be heard through closed doors)? 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 Specify any problems Hx of Preganancy in last 3 N/A 06/18/24 23:11 Months Nurse Filling Out Transfusion MMAST 06/18/24 23:11 & Questions: Date: 06/18/24 06/18/24 23:11 Time: 23:24 06/18/24 23:11 Patient unable to answer at this time (ie. confused, unrespo /Reproduction History /Reproductive History - sheep farm manager: /Reproductive Hx- sheep farm manager Hx Now No 06/29/24 00:21 Gestational Age (in weeks): EDC: Hx Hx Para Hx Section SAB No 06/29/24 00:21 Active Medications Active Medications: Current Medications Generic Name Dose Route Start Last Admin Trade Name Freq PRN Reason Stop Dose Admin Acetaminophen 650 mg 06/18/24 23:00 06/21/24 10:04 Acetaminophen 325 Mg Tablet PO 650 mg Q4H PRN PRN Administration Fever, pain 1-07/06 Acyclovir 400 mg 06/18/24 23:15 06/28/24 22:31 Acyclovir 200 Mg Capsule PO 400 mg Q12 DAVID Administration Al Hydrox/Mg Hydrox/Simethicone 30 ml 06/18/24 23:00 Mag /Aluminum/Simeth Wch Udc 30 Ml Oral.Susp PO Q6H PRN PRN Gastric Burning Albuterol Sulfate 2.5 mg 06/18/24 23:00 Albuterol 2.5 Mg/3 Ml Vial.Neb. INHALATION Q2H PRN PRN Dyspnea, wheezing Amlodipine Besylate 10 mg 06/19/24 10:00 06/28/24 09:04 Amlodipine 10 Mg Tablet PO 10 mg DAILY DAVID Administration Protocol Ascorbic Acid 1,000 mg 06/18/24 23:00 06/28/24 22:27 Ascorbic Acid 500 Mg Tablet PO 1,000 mg BID DAVID Administration Baclofen 5 mg 06/18/24 23:00 06/28/24 22:27 Baclofen 10 Mg Tablet PO Not Given BID DAVID Bisacodyl 10 mg 06/19/24 00:09 Bisacodyl 10 Mg Suppository RC Q4H PRN PRN constipation Calamine/Phenol 1 applic 06/22/24 22:00 06/29/24 05:29 Menthol/Lanolin/Calamine/Znox 113 Gm Tube TOPICAL Not Given TID [facility] Protocol Sodium Hypochlorite 473 ml/ 0 ml 06/26/24 10:00 06/28/24 09:09 Sodium Chloride 473 ml IRRIGATION Not Given UD [facility] Enoxaparin Sodium 40 mg 06/27/24 19:30 06/28/24 09:08 Enoxaparin 40 Mg/0.4 Ml Syringe SC Not Given DAILY [facility] Ferrous Sulfate 325 mg 06/19/24 08:00 06/28/24 09:03 Ferrous Sulfate 325 Mg Tablet PO 325 mg DAILYCM [facility] Administration Gabapentin 100 mg 06/18/24 23:00 06/29/24 05:30 Gabapentin 100 Mg Capsule PO Not Given TID [facility] Guaifenesin 20 ml 06/18/24 23:00 Guaifenesin 10 Ml Udc (200mg/10ml) PO Q4H PRN PRN COUGH Heparin Sodium (Beef Lung) 50 units 06/18/24 23:30 Heparin Pf Lock 10 Units/Ml 50 Units/5 Ml Syringe IV UD PRN Port-a-Cath (VAD)Heparin Flush Hydralazine HCl 10 mg 06/18/24 23:00 Hydralazine 20 Mg/Ml Vial IV Q4H PRN PRN SBP > 160 Protocol Vancomycin IV-PHARMACY TO DOSE 500 mls @ 250 mls/hr 06/18/24 23:00 1 each/ Sodium Chloride IV X1 PRN Rx to Dose Protocol Ampicillin Sodium/Sulbactam 112 mls @ 150 mls/hr 06/22/24 14:00 06/29/24 06:15 Sodium 3 gm/ Sodium Chloride IV Infused Q8 [facility] Infusion Vancomycin HCl 750 mg/ Sodium 265 mls @ 250 mls/hr 06/26/24 11:30 06/29/24 00:40 Chloride IV Infused Q12H DAVID Infusion Sodium Chloride 250 mls @ 15 mls/hr 06/28/24 07:33 06/29/24 07:15 IV Infused .[id number] PRN Infusion Additional IVPB Infusion Sodium Chloride 250 mls @ 15 mls/hr 06/28/24 07:33 IV .[id number] PRN Saline Flush Levothyroxine Sodium 100 mcg 06/19/24 06:00 06/29/24 05:30 Levothyroxine 100 Mcg Tablet PO Not Given DAILY@0600 DAVID Melatonin 6 mg 06/18/24 23:00 06/28/24 22:23 Melatonin 3 Mg Tablet PO 6 mg HS DAVID Administration Metoprolol Tartrate 50 mg 06/19/24 10:00 06/28/24 22:55 Metoprolol Tartrate 50 Mg Tablet PO Not Given BID [facility] Protocol Ondansetron HCl 4 mg 06/18/24 23:00 Ondansetron 4 Mg/2 Ml Vial IV Q8H PRN PRN NAUSEA/VOMITING Pantoprazole Sodium 20 mg 06/19/24 10:00 06/28/24 09:03 Pantoprazole Sodium 20 Mg Tablet PO 20 mg DAILY DAVID Administration Polyethylene Glycol 17 gm 06/19/24 10:00 06/28/24 09:05 Polyethylene Glycol 3350 17 Gm Packet PO 17 gm DAILY DAVID Administration Senna/Docusate Sodium 1 tablet 06/18/24 23:00 06/28/24 22:25 Senna/Docusate Sodium 1 Tablet PO 1 tablet BID DAVID Administration Sodium Chloride 10 - 40 ml 06/18/24 23:30 06/24/24 20:56 0.9 % Nacl (Sterile) Posiflush 10 Ml IV 10 ml UD PRN Administration Port access or dressing change Sodium Chloride 10 - 40 ml 06/18/24 23:30 06/28/24 11:31 0.9% Saline Lock 10 Ml Syringe IV 10 ml UD PRN Administration Port-a-Cath (VAD) Flush Vancomycin Protocol 1 lab 06/29/24 21:00 Vancomycin Trough/Random Due MC 06/30/24 01:00 DAILY DAVID PFSH Medical History Secondary malignant neoplasm of bone marrow Personal history of Methicillin resistant Staphylococcus aureus infection 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 History of radiation therapy Non-healing surgical wound Paraplegia Anemia Multiple myeloma DVT (deep venous thrombosis) Back pain Hypothyroidism Hypertension Hypercholesteremia Home Medications ?Medication ?Instructions ?Recorded ?Last Taken ?Type acetaminophen 500 mg capsule 500 mg PO Q6H PRN fever or pain 07/08/23 Unknown History acyclovir 400 mg tablet 400 mg PO Q12H 07/08/23 Unknown History amlodipine 10 mg tablet 10 mg PO DAILY bp 07/08/23 Unknown History ascorbic acid (vitamin C) 1,000 mg 1 g PO BID supplement 07/08/23 Unknown History tablet cholecalciferol (vitamin D3) 125 125 mcg PO DAILY supplement 07/08/23 Unknown History mcg (5,000 unit) capsule diphenhydramine HCl 25 mg capsule 25 mg PO ONCE PRN itching 07/08/23 Unknown History (Benadryl) gabapentin 100 mg capsule 100 mg PO TID back 07/08/23 Unknown History magnesium oxide 250 mg PO .no bowel health 07/08/23 Unknown History melatonin 3 mg capsule 6 mg PO HS sleep 07/08/23 Unknown History metoprolol tartrate 50 mg tablet 50 mg PO BID 07/08/23 Unknown History omeprazole 20 mg tablet,delayed 20 mg PO DAILY gerd 07/08/23 Unknown History release sennosides 8.6 mg-docusate sodium 1 tab-cap PO BID constipation 07/08/23 Unknown History 50 mg tablet (Senna Plus) simethicone 80 mg chewable tablet 80 mg PO TID PRN abdominal 07/08/23 Unknown History (Gas Relief (simethicone)) distention Disability Placard #1 ea 07/12/23 Unknown Rx ferrous sulfate 325 mg (65 mg 325 mg PO DAILY supplement 07/12/23 Unknown History iron) tablet apixaban 5 mg tablet (Eliquis) 5 mg PO BID vte prophylaxis 07/17/23 Unknown History baclofen 5 mg tablet 5 mg PO BID back pain 08/12/23 Unknown History benzonatate 200 mg capsule 200 mg PO TID PRN cough 08/12/23 Unknown History calcium carbonate 600 mg PO BID supplement 08/12/23 Unknown History levothyroxine 100 mcg tablet 100 mcg PO DAILY thyroid 08/12/23 Unknown History (Levo-T) magnesium hydroxide 400 mg/5 mL 30 ml PO DAILY PRN constipation 08/12/23 Unknown History oral suspension (Milk of Magnesia) polyethylene glycol 3350 17 17 g PO DAILY constipation 08/12/23 Unknown History gram/dose oral powder (ClearLax) lenalidomide 15 mg capsule 15 mg .Route .COMPLEX #21 CAPSULES 04/04/24 Unknown Rx (Revlimid) arginine 7 gram-glutamine 7 1 ea PO DAILY wound 06/18/24 Unknown History gram-calcium HMB 1.5 gram oral powder pack (Ariel) bisacodyl 10 mg rectal suppository 10 mg MT DAILY PRN PRN constipation 06/18/24 Unknown History (Dulcolax (bisacodyl)) sulfamethoxazole 800 1 tab PO Q12H antibiotic 06/18/24 Unknown History mg-trimethoprim 160 mg tablet dexamethasone 4 mg tablet 20 mg PO Q28D myeloma 06/19/24 Unknown History Allergy/AdvReac Type Severity Reaction Status Date / Time No Known Allergies Allergy Verified 06/18/24 17:37 Family History Mother Follicular lymphoma Father Hypertension Heart disease Brother Hypertension Other Cancer Surgical History History of back surgery History of tooth extraction H/O laminectomy History of cholecystectomy Social History housing: assisted living facility Smoking Status: Never smoker alcohol intake: former substance use type: does not use Review of Systems (Anesthesia) ROS Narrative System reviewed and no additional complaints, except as documented.
--- NOTE | 2024-06-29 08:59 | OP.PCM_ITS ---
Report of Operation Date of Procedure: 06/29/24 Pre-Operative Diagnosis: 1. Nonhealing wound status post posterior cervical th oracic fusion Post-Operative Diagnosis: 1. Nonhealing wound status post posterior cervical thoracic fusion Surgery/Procedure Performed:: 1. Posterior cervical thoracic irrigation, debridement, wound exploration 2. Posterior cervical thoracic hardware exploration 3. Posterior cervical thoracic bone debridement Description of Surgical Findings:: The patient was seen and examined. The procedure was discussed with the patient. The patient opted for operative intervention understanding the risk to include but not limited to infection, bleeding, damage to nerves arteries and veins, possibility of spinal fluid leak, paralysis, continued pain, need for further surgery, deep vein thrombosis, pulmonary embolism, heart attack, risk of stroke or . The patient was seen in the preoperative holding area. The patient's identity and surgery site were confirmed. He was then transferred to the [facility]. He received preoperative IV antibiotics. After the appropriate amount of anesthesia was given, the patient was transferred to the operating table in the prone position. All bony prominences were padded accordingly. The posterior cervical thoracic region was prepped and draped in a standard fashion. The previous wound VAC was removed exposing the previous 10 x 14 cm incision. No significant fluid collection was encountered. Cultures were taken. Deep retractors were placed. The wound was thoroughly explored. Further bony debridement was performed of any nonviable bone around the hardware. Hardware was found to be intact and stable. Some areas of necrotic tissue were encountered. Assisting Surgeon: Dr. Oren Olivera Plastic surgery, Dr. Olivera, then proceeded with his part of the case which included soft tissue debridement and application of wound VAC. See his op note for this Sponge instrument and needle counts were correct at the end of the case. The patient was extubated and taken to the PACU without incident Surgeon: Armand Menchaca manager meeting: Oren Olivera Type of Anesthesia: General Estimated Blood Loss (mL): 5 cc Fluids Replaced: 400cc Complications None Admit VTE Documentation VTE Present on Admission: No
--- NOTE | 2024-06-29 09:02 | PN.HOSP_ITS ---
Reason for Visit Reason for Visit: Diagnoses Paraplegia, unspecified (06/18/24) Unspecified open wound of unspecified back wall of thorax without penetration into thoracic cavity, initial encounter (06/18/24) Radiation sickness, unspecified, initial encounter (06/18/24) Radiation sickness, unspecified, sequela (06/18/24) Infection following a procedure, unspecified, initial encounter (06/18/24) Subjective Subjective Patient scheduled to undergo undergo intraoperative VAC change on 06/29/[address] Olivera and Dr. Keene Objective Data Objective Data Vital Signs: Vital Signs Temp Pulse Resp BP Pulse Ox O2 Del Method O2 Flow Rate 97.5 F L 57 L 16 132/64 H 95 Room Air 2 06/29/24 08:46 06/29/24 08:46 06/29/24 08:46 06/29/24 08:46 06/29/24 08:46 06/29/24 06:00 06/29/24 08:46 Oxygen Flow Rate (L/min) 2 Oxygen Delivery Method Room Air Weight: 86.5 kg Body Mass Index (BMI) 31.7 Intake & Output: Intake and Output for Last 24 Hours 06/27/24 06/28/24 06/29/24 23:59 23:59 23:59 Intake Total 1606 / 1726 1871.00 / 1991.00 724.5 / 724.5 Output Total 2500 / 2500 3375 / 4375 1999 Balance -894 / -774 -1504.00 / -2384.00 -1275.5 / -1275.5 Lab / Micro Data 06/29/24 05:23 06/29/24 05:23 Labs: Laboratory Results - last 24 hr 06/29/24 05:23: WBC 5.0, RBC 3.69 L, Hgb 10.5 L, Hct 33.6 L, MCV 91.1, MCH 28.5, MCHC 31.3 L, RDW Std Deviation 54.4 H, RDW Coeff of Hattie 16.4 H, Plt Count 268, MPV 10.1, Immature Gran % (Auto) 0.600, Neut % (Auto) 70.8 H, Lymph % (Auto) 12.2 L, [place] % (Auto) 9.4, Eos % (Auto) 6.2 H, Baso % (Auto) 0.8, Absolute Neuts (auto) 3.6, Absolute Lymphs (auto) 0.61 L, Nucleated RBC % 0, PT 13.2, INR 1.0, APTT 26.6, Sodium 140, Potassium 4.0, Chloride 106, Carbon Dioxide 29.0, Anion Gap 5, BUN 28 H, Creatinine 1.32 H, Estim Creat Clear Calc 55.67, Est GFR (MDRD) Af Amer 70, Est GFR (MDRD) Non-Af 58 L, BUN/Creatinine Ratio 21.2 H, Glucose 100, Calcium 9.3, Phosphorus 3.6, Magnesium 1.6 Micro: Microbiology 06/26/24 08:45 Tissue - Cervical Gram Stain - Final 06/26/24 08:45 Tissue - Cervical Wound Culture - Preliminary No growth-Final to follow 06/26/24 08:45 Tissue - Cervical Anaerobic Culture - Preliminary No growth in 48 hours. 06/26/24 08:45 Bone - Back Gram Stain - Final 06/26/24 08:45 Bone - Back Wound Culture - Preliminary No growth-Final to follow 06/26/24 08:45 Bone - Back Anaerobic Culture - Preliminary No growth in 48 hours. 06/26/24 08:45 Wound - Cervical Gram Stain - Final 06/26/24 08:45 Wound - Cervical Wound Culture - Preliminary Mixed Gram Positive Organisms 06/26/24 08:45 Wound - Cervical Anaerobic Culture - Preliminary No growth in 48 hours. 06/26/24 08:45 Wound - Cervical Gram Stain - Final 06/26/24 08:45 Wound - Cervical Wound Culture - Preliminary GPC Poss Enterococcus sp 06/26/24 08:45 Wound - Cervical Anaerobic Culture - Preliminary No growth in 48 hours. 06/26/24 08:45 Tissue - Cervical Gram Stain - Final 06/26/24 08:45 Tissue - Cervical Wound Culture - Final Staphylococcus lugdunensis 06/26/24 08:45 Tissue - Cervical Anaerobic Culture - Final No anaerobic bacteria isolated. 06/18/24 18:25 Blood Culture (Wb) - Port Blood Culture - Final No growth in 5 days. 06/19/24 00:05 Wound - Back Gram Stain - Final 06/19/24 00:05 Wound - Back Wound Culture - Final Meth. resistant Staph. aureus Gram positive cesar 06/19/24 00:05 Wound - Back Skin and Soft Tissue MRSA/MSSA (PCR - Final Meth. resistant Staph. aureus 06/18/24 18:25 Urine, Clean Catch Urine Culture - Final Enterococcus faecalis 06/18/24 18:25 Mucosa - Nose SARS-CoV-2, Influenza & RSV (PCR) - Final Physical Exam Narrative GENERAL: cooperative HEENT: Atraumatic; normocephalic EYES; Anicteric, Normal Conjunctiva NECK; supple, normal thyroid, RESPIRATORY: Diminished to auscultation CARDIOVASCULAR: Regular S1 S2, GI: soft, normoactive bowel sounds, : No Renal angle tenderness; EXTREMITIES: No edema, no clubbing, MUSCULOSKELETAL: no muscle wasting NEURO: Awake; oriented to place and person SKIN: Wound VAC upper back PSYCH; Flat affect Assessment & Plan Assessment/Plan (1) Open wound of tissue overlying spine: QUALIFIERS: Encounter type: initial encounter Laterality: u nspecified laterality Qualified Code(s): S21.209A - Unspecified open wound of unspecified back wall of thorax without penetration into thoracic cavity, initial encounter PLAN: Plan Patient is a 68-year-old gentleman with history of previous radiation to the back from multiple myeloma who presented with nonhealing ulceration 1. 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 Underwent Posterior cervical thoracic irrigation, debridement, wound exploration; Posterior cervical thoracic hardware exploration; Posterior cervical thoracic bone debridement on 06/26/2024. Plan is for patient to undergo intraoperative VAC change on 06/29/[address] Tijerina and Dr. Keene. ID on board managing antibiotic therapy ? 4Patient scheduled to undergo undergo intraoperative VAC change on 06/29/[address] Olivera and Dr. Keene 2. 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 This complicates patient's care. Patient walks with a walker 3. Class I obesity with BMI of 31.8 ? Weight loss advised 4. Hypertension ? Blood pressure controlled, home medications continued with dose adjustment as needed 5. Multiple myeloma ? Patient is followed by Dr. Perez patient previously treated with thoracic decompression in October 2022, radiation therapy in December 2022 to T1-2 8. Patient did receive daratumumab Revlimid starting February 2023 (initially 25 mg then reduced to 15 Mg 3 weeks on 1 week off) and dexamethasone. [place] Holiday from Revlimid March 2024? 6. Hypothyroidism ? Patient is on levothyroxine home dose continued 7. Previous history of VTE ? Patient is on apixaban; Held in anticipation of surgical intervention started on enoxaparin 8. Anemia ? Secondary to chronic disorder monitoring H&H and transfuse if patient becomes symptomatic or hemoglobin falls below 7 9. DVT prophylaxis ? On enoxaparin Time spent in the patient's overall evaluation,decision-making process, review of diagnostic data, adjustment of management, discussion with other providers, nursing nursing and ancillary staff involved in patient's care documentation, 38 Minutes Charges/Coding Visit Charges Inpatient E&M: 74633 Subs Hosp L2
--- NOTE | 2024-06-29 10:12 | ANES.CONFIRM ---
Anesthesia: Confirm Documents Multiple Procedures on Account (2) Confirmed Documents: Yes
[2024-06-29] MEDS: Bupivacaine 0.25% 30 ML Vial (10:23)
--- NOTE | 2024-06-29 10:37 | PCM.POST.ANE ---
Anesthesia: Postop Eval I Current Vital Signs Temperature: 98 F Pulse Rate: 95 Blood Pressure: 140/75 Respiratory Rate: 20 Pulse Ox: 95 Assessment Airway patent: Yes Spontaneous unlabored respirations: Yes nausea: No Vomiting: No Anesthesia Complication: No Fluid Hydration Crystalloid volume administer (ml): 400 Total IV fluid infused: 400 Progress Note Anesthesia document: Postop Eval 1 completed: Yes
--- NOTE | 2024-06-29 11:01 | OP.PCM_ITS ---
Operative Report Date of Procedure: 06/29/24 Surgery/Procedure Date: 29 Jun 2024 Incision/Procedure Start Time: 10:03 am Incision Close/Procedure End Time: 10:24 am PATIENT: Armand Barron SURGEON: Oren Olivera MD Co-Surgeon: Armand Menchaca DO PRE-OPERATIVE DIAGNOSIS: Radiated cervical/thoracic spinal wound POST-OPERATIVE DIAGNOSIS: Same PROCEDURE PERFORMED: 1) Excision/surgical preparation of wound bed including skin and subcutaneous tissue, 14 x 10 cm (CPT: 06975, 91493) 2) Placement of irrigating wound VAC, not disposable (CPT 10572) OPERATIVE FINDINGS: * Some necrotic fascial tissue/fibrinous exudate, but no purulence/fluid collections. * INDICATIONS: Armand Barron is a 68-year-old male who has a history of multiple myeloma and pathologic fractures involving his upper thoracic spine requiring fusion followed by radiation who developed chronic wounds over the spinal hardware. Debrided on [address] Menchaca and md. The hardware at the base of the wound is obligatory and cannot be removed (spine surgeon, Dr. Menchaca, does not recommend revision of the hardware). Patient here today for excision of wound and washout second look as a joint case with spine surgery and plastic surgery. Patient was counseled extensively of the risks and benefits. OPERATIVE DETAILS: The patient was taken back to the operating room and administered general anesthesia, VAC was removed, and he was prepped and draped in sterile fashion in a prone position. Care was taken to pad all bony prominences, and protect the face and eyes. All proper timeouts were performed. I began the procedure by excising the necrotic muscle/fascia and fat in the wound down to the deep soft tissues overlying the spine for surgical preparation/excision of necrotic and radiated skin and subcutaneous tissue and fascia in the wound of 14 x 10 cm. A curved Rasmussen scissors was used. I then assisted Dr. Menchaca with further debridement of the bone (please see his operative dictation for this portion of the case). Deep soft tissue cultures were obtained. We then washed out the wound with 3 L of normal saline using a pulse lavage. We then placed a vera flow irrigating wound VAC on the wound and began irrigating with Dakins solution. The patient was awakened and taken to the PACU in stable condition. He tolerated the procedure quite well. EBL: 10 cc Anesthesia: General anesthesia and a 10 cc local infilration of the skin edges/fascia with 0.25% Marcaine at the completion of the case ASA: 3 IVF: 400 cc LR UOP: 100 cc Transfusions: None Perioperative antibiotics were his Unasyn and vancomycin POST-OPERATIVE PLAN: Plastic surgery and spine surgery will follow. Plan for follow-up of cultures (Enterococcus and Staph thus far) and continued vera flow wound VAC with Dakins. Tentative muscle flap reconstruction of wound for 04 July 2024. O.K. to restart therapeutic anticoagulation (Lovenox) tomorrow night (30 June 2024), and then hold therapeutic Lovenox the night of 03 Jul 2024 (in preparation for surgery).
[2024-06-29] MEDS: 0.9% Saline Lock 10 ML Syringe IV (12:00)
[2024-06-29] MEDS: Sodium Hypochlorite (Dakin's) 0.125% Wound Irrigation IRRIGATION (12:01)
[2024-06-29] MEDS: Ferrous Sulfate 325 MG Tablet PO (12:02)
[2024-06-29] MEDS: Acyclovir 200 MG Capsule 400 MG PO ×2 (12:03→20:53)
[2024-06-29] MEDS: Metoprolol Tartrate 50 MG Tablet PO ×2 (12:03→20:54)
[2024-06-29] MEDS: Senna/Docusate Sodium 1 Tablet PO ×2 (12:03→20:55)
[2024-06-29] MEDS: amLODIPine 10 MG Tablet PO (12:04)
[2024-06-29] MEDS: Pantoprazole Sodium 20 MG Tablet PO (12:04)
[2024-06-29] MEDS: Ascorbic Acid 500 MG Tablet 1000 MG PO ×2 (12:04→20:54)
[2024-06-29] MEDS: Baclofen 10 MG Tablet 5 MG PO ×2 (12:05→20:55)
[2024-06-29] MEDS: Polyethylene Glycol 3350 17 GM PACKET PO (12:05)
[2024-06-29] MEDS: Vancomycin HCl 750 MG in 0.9% Normal Saline (250mL Bag) 250 ML 250 MG IV (12:09)
[2024-06-29] MEDS: 0.9% Normal Saline (250mL Bag) 250 ML 15 ML IV (14:30)
[2024-06-29] MEDS: Gabapentin 100 MG Capsule PO ×2 (14:32→20:55)
[2024-06-29] MEDS: 0.9 % NaCl (Sterile) Posiflush 10 mL IV (20:52)
[2024-06-29] MEDS: MELATONIN 3 MG TABLET 6 MG PO (20:55)
[2024-06-29] MEDS: Menthol/Lanolin/Calamine/Znox 113 GM Tube 1 APPLIC TOPICAL (20:55)
[2024-06-29] MEDS: APIXABAN 5 MG TABLET PO (21:04)
[2024-06-29 23:38] LABS: Vancomycin, Trough Level 23.7 ug/mL (5.0-15.0)
--- NOTE | 2024-06-29 23:50 | PCM.RX.CS ---
Consult Antibiotic Management Pharmacy has been consulted to manage selected antibiotic: Vancomycin Type of Intervention Type of Consult: Follow-up Labs Labs: Sodium 140 mmol/L (136-145) 06/29/24 05:23 Potassium 4.0 mmol/L (3.5-5.1) 06/29/24 05:23 Chloride 106 mmol/L (98-107) 06/29/24 05:23 Carbon Dioxide 29.0 mmol/L (21.0-32.0) 06/29/24 05:23 Anion Gap 5 (5-15) 06/29/24 05:23 BUN 28 mg/dL (7-18) H 06/29/24 05:23 Creatinine 1.32 mg/dL (0.70-1.30) H 06/29/24 05:23 Est GFR (MDRD) Af Amer 70 mL/min (>60) 06/29/24 05:23 Est GFR (MDRD) Non-Af 58 mL/min (>60) L 06/29/24 05:23 BUN/Creatinine Ratio 21.2 RATIO (10-20) H 06/29/24 05:23 Glucose 100 mg/dL (74-106) 06/29/24 05:23 Vancomycin Trough 23.7 ug/mL (5.0-15.0) H 06/29/24 23:05 Random Vancomycin 15.0 ug/mL (0.0-15.0) 06/22/24 09:42 Microbiology Microbiology: Microbiology 06/26/24 08:45 Wound - Cervical Gram Stain - Final 06/26/24 08:45 Wound - Cervical Wound Culture - Preliminary Mixed Gram Positive Organisms 06/26/24 08:45 Wound - Cervical Anaerobic Culture - Preliminary No growth in 48 hours. 06/26/24 08:45 Tissue - Cervical Gram Stain - Final 06/26/24 08:45 Tissue - Cervical Wound Culture - Preliminary No growth-Final to follow 06/26/24 08:45 Tissue - Cervical Anaerobic Culture - Preliminary No growth in 48 hours. 06/26/24 08:45 Bone - Back Gram Stain - Final 06/26/24 08:45 Bone - Back Wound Culture - Preliminary No growth-Final to follow 06/26/24 08:45 Bone - Back Anaerobic Culture - Preliminary No growth in 48 hours. 06/26/24 08:45 Wound - Cervical Gram Stain - Final 06/26/24 08:45 Wound - Cervical Wound Culture - Preliminary GPC Poss Enterococcus sp 06/26/24 08:45 Wound - Cervical Anaerobic Culture - Preliminary No growth in 48 hours. 06/26/24 08:45 Tissue - Cervical Gram Stain - Final 06/26/24 08:45 Tissue - Cervical Wound Culture - Final Staphylococcus lugdunensis 06/26/24 08:45 Tissue - Cervical Anaerobic Culture - Final No anaerobic bacteria isolated. 06/18/24 18:25 Blood Culture (Wb) - Port Blood Culture - Final No growth in 5 days. 06/19/24 00:05 Wound - Back Gram Stain - Final 06/19/24 00:05 Wound - Back Wound Culture - Final Meth. resistant Staph. aureus Gram positive cesar 06/19/24 00:05 Wound - Back Skin and Soft Tissue MRSA/MSSA (PCR - Final Meth. resistant Staph. aureus 06/18/24 18:25 Urine, Clean Catch Urine Culture - Final Enterococcus faecalis 06/18/24 18:25 Mucosa - Nose SARS-CoV-2, Influenza & RSV (PCR) - Final Goal Trough Goal Trough: 15-20 mcg/mL Pharmacy Plan for Drug Dosing Pharmacy Plan for Drug Dosing: Pharmacy Service will continue to monitor and adjust dosing as required. TROUGH 23.7 @ 11 HOURS. HOLD DOSE AND DRAW RANDOM LEVEL IN 8 HOURS. Follow-Up Labs Follow-Up Labs: Trough: Vancomycin Date/Time Labs Ordered Labs to be done on [date and time ordered]: 06/30 @ 0700
[2024-06-29] MEDS: Vancomycin Trough/Random Due 1 LAB MC (23:54)
[2024-06-30 03:26] VITALS: BP 120/63; PULSE 59; RESP 14; TEMP 36.5; O2SAT 92
[2024-06-30 04:19] VITALS: BMI 31.6
[2024-06-30 05:46] LABS: Absolute Lymphocyte Count 0.54 X10^3/uL (0.83-4.51); Absolute Neutrophil Count 3.9 X10^3/uL (2.0-7.7); Basophil# 0.06 X10^3/uL; Basophil% 1.1 % (0-1); Eosinophil# 0.33 X10^3/uL; Hematocrit 31.5 % (40-54); Hemoglobin 9.7 g/dL (13.0-16.5); Lymphocyte # 0.54 X10^3/ul (0.83-4.51); Lymphocyte % 9.9 % (19-41); Mean Corp Hgb Conc 30.8 g/dL (32-36); Mean Corpuscular Hgb 28.5 pg (27.0-32.0); Mean Corpuscular Volume 92.6 fL (80-94); Monocyte# 0.65 X10^3/uL; Monocyte% 11.9 % (0-10); NRBC Flagged by Analyzer 0 % (0-5); Neutrophil # 3.86 X10^3/uL (2.7-7.7); Neutrophil % 70.6 % (47-70); POSITIVE DIFFERENTIAL YES; Platelet Count 256 K/mm3 (150-450); RBC Distribution Width CV 16.2 % (11.6-14.6); RBC Distribution Width SD 55.5 fl (35.1-43.9); White Blood Count 5.5 K/mm3 (4.4-11.0)
[2024-06-30] MEDS: 0.9 % NaCl (Sterile) Posiflush 10 mL IV (05:54)
[2024-06-30] MEDS: Gabapentin 100 MG Capsule PO ×3 (05:54→21:27)
[2024-06-30] MEDS: Levothyroxine 100 MCG Tablet PO (05:54)
[2024-06-30] MEDS: Ampicillin/Sulbactam 3 GM in 0.9% Normal Saline (100mL MB+) 100 ML IV (05:56)
[2024-06-30 06:26] LABS: Anion Gap 6 (5-15); BUN 29 mg/dL (7-18); BUN/Creat Ratio 20.7 RATIO (10-20); Calcium,Total 9.5 mg/dL (8.5-10.1); Chloride 102 mmol/L (98-107); EST Glomerular Filtration Rate 54 mL/min (>60); Est Glom Filt Rate - Afr Amer 65 mL/min (>60); Glucose 101 mg/dL (74-106); Potassium 4.1 mmol/L (3.5-5.1); Sodium Level 137 mmol/L (136-145)
--- NOTE | 2024-06-30 07:30 | PN.HOSP_ITS ---
Reason for Visit Reason for Visit: Diagnoses Paraplegia, unspecified (06/18/24) Unspecified open wound of unspecified back wall of thorax without penetration into thoracic cavity, initial encounter (06/18/24) Radiation sickness, unspecified, initial encounter (06/18/24) Radiation sickness, unspecified, sequela (06/18/24) Infection following a procedure, unspecified, initial encounter (06/18/24) Subjective Subjective Patient underwent posterior cervical thoracic irrigation, debridement, wound exploration, Posterior cervical thoracic hardware exploration, Posterior cervical thoracic bone debridement on 11/28/2023 Objective Data Objective Data Vital Signs: Vital Signs Temp Pulse Resp BP Pulse Ox O2 Del Method O2 Flow Rate 97.7 F L 59 L 14 120/63 92 Room Air 2 06/30/24 03:26 06/30/24 03:26 06/30/24 03:26 06/30/24 03:26 06/30/24 03:26 06/30/24 03:49 06/29/24 11:14 Oxygen Flow Rate (L/min) 2 Oxygen Delivery Method Room Air Weight: 86.2 kg Body Mass Index (BMI) 31.6 Intake & Output: Intake and Output for Last 24 Hours 06/28/24 06/29/24 06/30/24 23:59 23:59 23:59 Intake Total 1871.00 / 1991.00 1653.75 / 1653.75 552 / 552 Output Total 3375 / 4375 2650 / 2650 700 / 700 Balance -1504.00 / -2384.00 -996.25 / -996.25 -148 / -148 Lab / Micro Data 06/30/24 05:16 06/30/24 05:16 Labs: Laboratory Results - last 24 hr 06/29/24 23:05: Vancomycin Trough 23.7 H 06/30/24 05:16: WBC 5.5, RBC 3.40 L, Hgb 9.7 L, Hct 31.5 L, MCV 92.6, MCH 28.5, MCHC 30.8 L, RDW Std Deviation 55.5 H, RDW Coeff of Hattie 16.2 H, Plt Count 256, MPV 10.0, Immature Gran % (Auto) 0.500, Neut % (Auto) 70.6 H, Lymph % (Auto) 9.9 L, [place] % (Auto) 11.9 H, Eos % (Auto) 6.0 H, Baso % (Auto) 1.1 H, Absolute Neuts (auto) 3.9, Absolute Lymphs (auto) 0.54 L, Nucleated RBC % 0, Sodium 137, Potassium 4.1, Chloride 102, Carbon Dioxide 30.0, Anion Gap 6, BUN 29 H, C reatinine 1.40 H, Estim Creat Clear Calc 52.40, Est GFR (MDRD) Af Amer 65, Est GFR (MDRD) Non-Af 54 L, BUN/Creatinine Ratio 20.7 H, Glucose 101, Calcium 9.5 Micro: Microbiology 06/26/24 08:45 Wound - Cervical Gram Stain - Final 06/26/24 08:45 Wound - Cervical Wound Culture - Preliminary Mixed Gram Positive Organisms 06/26/24 08:45 Wound - Cervical Anaerobic Culture - Preliminary No growth in 48 hours. 06/26/24 08:45 Tissue - Cervical Gram Stain - Final 06/26/24 08:45 Tissue - Cervical Wound Culture - Preliminary No growth-Final to follow 06/26/24 08:45 Tissue - Cervical Anaerobic Culture - Preliminary No growth in 48 hours. 06/26/24 08:45 Bone - Back Gram Stain - Final 06/26/24 08:45 Bone - Back Wound Culture - Preliminary No growth-Final to follow 06/26/24 08:45 Bone - Back Anaerobic Culture - Preliminary No growth in 48 hours. 06/26/24 08:45 Wound - Cervical Gram Stain - Final 06/26/24 08:45 Wound - Cervical Wound Culture - Preliminary GPC Poss Enterococcus sp 06/26/24 08:45 Wound - Cervical Anaerobic Culture - Preliminary No growth in 48 hours. 06/26/24 08:45 Tissue - Cervical Gram Stain - Final 06/26/24 08:45 Tissue - Cervical Wound Culture - Final Staphylococcus lugdunensis 06/26/24 08:45 Tissue - Cervical Anaerobic Culture - Final No anaerobic bacteria isolated. 06/18/24 18:25 Blood Culture (Wb) - Port Blood Culture - Final No growth in 5 days. 06/19/24 00:05 Wound - Back Gram Stain - Final 06/19/24 00:05 Wound - Back Wound Culture - Final Meth. resistant Staph. aureus Gram positive cesar 06/19/24 00:05 Wound - Back Skin and Soft Tissue MRSA/MSSA (PCR - Final Meth. resistant Staph. aureus 06/18/24 18:25 Urine, Clean Catch Urine Culture - Final Enterococcus faecalis 06/18/24 18:25 Mucosa - Nose SARS-CoV-2, Influenza & RSV (PCR) - Final Physical Exam Narrative GENERAL: cooperative HEENT: Atraumatic; normocephalic EYES; Anicteric, Normal Conjunctiva NECK; supple, normal thyroid, RESPIRATORY: Diminished to auscultation CARDIOVASCULAR: Regular S1 S2, GI: soft, normoactive bowel sounds, : No Renal angle tenderness; EXTREMITIES: No edema, no clubbing, MUSCULOSKELETAL: no muscle wasting NEURO: Awake; oriented to place and person SKIN: Wound VAC upper back PSYCH; Flat affect Assessment & Plan Assessment/Plan (1) Open wound of tissue overlying spine: QUALIFIERS: Encounter type: initial encounter Laterality: u nspecified laterality Qualified Code(s): S21.209A - Unspecified open wound of unspecified back wall of thorax without penetration into thoracic cavity, initial encounter PLAN: Plan Patient is a 68-year-old gentleman with history of previous radiation to the back from multiple myeloma who presented with nonhealing ulceration 1. 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 Underwent Posterior cervical thoracic irrigation, debridement, wound exploration; Posterior cervical thoracic hardware exploration; Posterior cervical thoracic bone debridement on 06/26/2024. Plan is for patient to undergo intraoperative VAC change on 06/29/[address] Tijerina and Dr. Keene. ID on board managing antibiotic therapy ? 06/29/2024atient scheduled to undergo undergo intraoperative VAC change on 06/29/[address] Olivera and Dr. Mantilla ?06/30/2024 patient underwent posterior cervical thoracic irrigation, debridement, wound exploration, Posterior cervical thoracic hardware exploration, Posterior cervical thoracic bone debridement on 11/28/2023 2. 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 This complicates patient's care. Patient walks with a walker 3. Class I obesity with BMI of 31.8 ? Weight loss advised 4. Hypertension ? Blood pressure controlled, home medications continued with dose adjustment as needed 5. Multiple myeloma ? Patient is followed by Dr. Perez patient previously treated with thoracic decompression in October 2022, radiation therapy in December 2022 to T1-2 8. Patient did receive daratumumab Revlimid starting February 2023 (initially 25 mg then reduced to 15 Mg 3 weeks on 1 week off) and dexamethasone. [place] Holiday from Revlimid March 2024? 6. Hypothyroidism ? Patient is on levothyroxine home dose continued 7. Previous history of VTE ? Patient is on apixaban; Held in anticipation of surgical intervention started on enoxaparin ? 06/2024 patient was started on apixaban with plans to hold 24 hours prior to his next intervention planned on 07/04/2024 8. Anemia ? Secondary to chronic disorder monitoring H&H and transfuse if patient becomes symptomatic or hemoglobin falls below 7 9. DVT prophylaxis ? On enoxaparin 10. Physical deconditioning ? Requested for PT OT eval and social security specialist to assist with discharge planning Time spent in the patient's overall evaluation,decision-making process, review of diagnostic data, adjustment of management, discussion with other providers, nursing nursing and ancillary staff involved in patient's care documentation, 38 Minutes Charges/Coding Visit Charges Inpatient E&M: 82925 Subs Hosp L2
[2024-06-30 08:08] LABS: Vancomycin, Random Level 20.1 ug/mL (0.0-15.0)
--- NOTE | 2024-06-30 08:29 | PCM.RX.CS ---
Consult Antibiotic Management Pharmacy has been consulted to manage selected antibiotic: Vancomycin Type of Intervention Type of Consult: Follow-up Prior Doses of Antibiotics Prior Doses of Antibiotics Received/Current Regimen: Last dose 750mg iv 06.29.24 @1209. Labs Labs: Sodium 137 mmol/L (136-145) 06/30/24 05:16 Potassium 4.1 mmol/L (3.5-5.1) 06/30/24 05:16 Chloride 102 mmol/L (98-107) 06/30/24 05:16 Carbon Dioxide 30.0 mmol/L (21.0-32.0) 06/30/24 05:16 Anion Gap 6 (5-15) 06/30/24 05:16 BUN 29 mg/dL (7-18) H 06/30/24 05:16 Creatinine 1.40 mg/dL (0.70-1.30) H 06/30/24 05:16 Est GFR (MDRD) Af Amer 65 mL/min (>60) 06/30/24 05:16 Est GFR (MDRD) Non-Af 54 mL/min (>60) L 06/30/24 05:16 BUN/Creatinine Ratio 20.7 RATIO (10-20) H 06/30/24 05:16 Glucose 101 mg/dL (74-106) 06/30/24 05:16 Vancomycin Trough 23.7 ug/mL (5.0-15.0) H 06/29/24 23:05 Random Vancomycin 20.1 ug/mL (0.0-15.0) H 06/30/24 07:25 Microbiology Microbiology: Microbiology 06/26/24 08:45 Wound - Cervical Gram Stain - Final 06/26/24 08:45 Wound - Cervical Wound Culture - Final Enterococcus faecalis 06/26/24 08:45 Wound - Cervical Anaerobic Culture - Preliminary No growth in 48 hours. 06/26/24 08:45 Wound - Cervical Gram Stain - Final 06/26/24 08:45 Wound - Cervical Wound Culture - Final Staphylococcus lugdunensis Staphylococcus epidermidis 06/26/24 08:45 Wound - Cervical Anaerobic Culture - Preliminary No growth in 48 hours. 06/26/24 08:45 Tissue - Cervical Gram Stain - Final 06/26/24 08:45 Tissue - Cervical Wound Culture - Preliminary No growth-Final to follow 06/26/24 08:45 Tissue - Cervical Anaerobic Culture - Preliminary No growth in 48 hours. 06/26/24 08:45 Bone - Back Gram Stain - Final 06/26/24 08:45 Bone - Back Wound Culture - Preliminary No growth-Final to follow 06/26/24 08:45 Bone - Back Anaerobic Culture - Preliminary No growth in 48 hours. 06/26/24 08:45 Tissue - Cervical Gram Stain - Final 06/26/24 08:45 Tissue - Cervical Wound Culture - Final Staphylococcus lugdunensis 06/26/24 08:45 Tissue - Cervical Anaerobic Culture - Final No anaerobic bacteria isolated. 06/18/24 18:25 Blood Culture (Wb) - Port Blood Culture - Final No growth in 5 days. 06/19/24 00:05 Wound - Back Gram Stain - Final 06/19/24 00:05 Wound - Back Wound Culture - Final Meth. resistant Staph. aureus Gram positive cesar 06/19/24 00:05 Wound - Back Skin and Soft Tissue MRSA/MSSA (PCR - Final Meth. resistant Staph. aureus 06/18/24 18:25 Urine, Clean Catch Urine Culture - Final Enterococcus faecalis 06/18/24 18:25 Mucosa - Nose SARS-CoV-2, Influenza & RSV (PCR) - Final Dosing Weight Weight used for dosin.1 kg Estimated Creatinine Clearance Estimated Creatinine Clearance: 52ml/min Goal Trough Goal Trough: 15-20 mcg/mL Pharmacy Plan for Drug Dosing Pharmacy Plan for Drug Dosing: Random level this AM 20.1 and still above desired range of 15-20.. Trough last PM .12.18 @2305 was 23.7. Will continue to hold dosing for now with new random level ordered for today @1600. Pharmacy Service will continue to monitor and adjust dosing as required. Follow-Up Labs Follow-Up Labs: Trough: Vancomycin (random .01.18 1600)
--- NOTE | 2024-06-30 08:47 | WOUNDNOTE ---
Pt had been up into the bathroom. did have some stool incontinence. olman care provided. new attends applied. therapy in and walked patient in the hallway. pt tolerated well. VAC canister changed at this time.
[2024-06-30 10:15] VITALS: BP 108/57; PULSE 62; RESP 18; TEMP 36.6; O2SAT 94
[2024-06-30] MEDS: Baclofen 10 MG Tablet 5 MG PO ×2 (10:23→21:26)
[2024-06-30] MEDS: Pantoprazole Sodium 20 MG Tablet PO (10:23)
[2024-06-30] MEDS: amLODIPine 10 MG Tablet PO (10:23)
[2024-06-30] MEDS: Acyclovir 200 MG Capsule 400 MG PO ×2 (10:23→21:27)
[2024-06-30] MEDS: Ascorbic Acid 500 MG Tablet 1000 MG PO ×2 (10:23→21:27)
[2024-06-30] MEDS: APIXABAN 5 MG TABLET PO ×2 (10:23→21:26)
[2024-06-30 10:24] VITALS: PULSE 62
[2024-06-30] MEDS: Metoprolol Tartrate 50 MG Tablet PO ×2 (10:24→21:27)
[2024-06-30] MEDS: Ferrous Sulfate 325 MG Tablet PO (10:24)
--- NOTE | 2024-06-30 12:38 | PCM.PN.ID ---
Physical Exam Narrative Feeling ok s/p OR yesterday. No fever, no n/v/d. Const alert and no apparent distress General Appearance: cooperative Resp normal air movement and clear to auscultation bilaterally Cardio regular rate and regular rhythm GI soft to palpation, non-tender and non-distended Skin Skin Narrative: no new rash ID ID: Route of nutrition/ use of supplements: [] Nutritional Intake: [] IV Site: [] Humphries Catheter: [] Assessment & Plan Assessment/Plan (1) Open wound of tissue overlying spine: QUALIFIERS: Encounter type: initial encounter Laterality: unspecified laterality Qualified Code(s): S21.209A - Unspecified open wound of unspecified back wall of thorax without penetration into thoracic cavity, initial encounter PLAN: wound cx with MRSA and GPR (MRSA pcr positive), seen by plastic surgery and spine surgery, OR 06/26/24 for I&D down to hardware. On vanc/unasyn. ucx with small growth enterococcus. Surg cx 06/26 with S lugdunensus and S. epi. Will stop unasyn. Tentative plan at discharge will be 6 weeks iv vanc dosed through port. Will follow (2) Paraplegia:
--- NOTE | 2024-06-30 13:16 | PN.SURG_ITS ---
<Statement entered by Oren Olivera MD - 07/01/24 08:16> Pt seen & evaluated w/FREDI. I personally interviewed & exam the pt. I was involved in all aspects of pt's orders, interpretation of results & treatment Subjective Subjective Patient doing well. Pain well controlled. Objective Data Objective Data Vital Signs: Vital Signs Temp Pulse Resp BP Pulse Ox O2 Del Method O2 Flow Rate 97.9 F 62 18 108/57 L 94 Room Air 2 06/30/24 10:15 06/30/24 10:24 06/30/24 10:15 06/30/24 10:15 06/30/24 10:15 06/30/24 10:19 06/29/24 11:14 Oxygen Flow Rate (L/min) 2 Oxygen Delivery Method Room Air Weight: 190 lb 0.615 oz Body Mass Index (BMI) 31.6 Intake & Output: Intake and Output for Last 24 Hours 06/28/24 06/29/24 06/30/24 23:59 23:59 23:59 Intake Total 1871.00 / 1991.00 1653.75 / 1653.75 1041.75 / 1041.75 Output Total 3375 / 4375 2650 / 2650 700 / 700 Balance -1504.00 / -2384.00 -996.25 / -996.25 341.75 / 341.75 Lab / Micro Data Attestation: I reviewed the patient's lab results. 06/30/24 05:16 06/30/24 05:16 Labs: Laboratory Results - last 24 hr 06/29/24 23:05: Vancomycin Trough 23.7 H 06/30/24 05:16: WBC 5.5, RBC 3.40 L, Hgb 9.7 L, Hct 31.5 L, MCV 92.6, MCH 28.5, MCHC 30.8 L, RDW Std Deviation 55.5 H, RDW Coeff of Hattie 16.2 H, Plt Count 256, MPV 10.0, Immature Gran % (Auto) 0.500, Neut % (Auto) 70.6 H, Lymph % (Auto) 9.9 L, Cam[place] % (Auto) 11.9 H, Eos % (Auto) 6.0 H, Baso % (Auto) 1.1 H, Absolute Neuts (auto) 3.9, Absolute Lymphs (auto) 0.54 L, Nucleated RBC % 0, Sodium 137, Potassium 4.1, Chloride 102, Carbon Dioxide 30.0, Anion Gap 6, BUN 29 H, C reatinine 1.40 H, Estim Creat Clear Calc 52.40, Est GFR (MDRD) Af Amer 65, Est GFR (MDRD) Non-Af 54 L, BUN/Creatinine Ratio 20.7 H, Glucose 101, Calcium 9.5 06/30/24 07:25: Random Vancomycin 20.1 H Micro: Microbiology 06/29/24 10:20 Wound Abcess - Aerobic & Anaerobic Swabs Gram Stain - Final 06/29/24 10:20 Wound Abcess - Aerobic & Anaerobic Swabs Wound Culture - Preliminary No growth-Final to follow 06/26/24 08:45 Tissue - Cervical Gram Stain - Final 06/26/24 08:45 Tissue - Cervical Wound Culture - Final No growth aerobically. 06/26/24 08:45 Tissue - Cervical Anaerobic Culture - Preliminary No growth in 48 hours. 06/26/24 08:45 Bone - Back Gram Stain - Final 06/26/24 08:45 Bone - Back Wound Culture - Final No growth aerobically. 06/26/24 08:45 Bone - Back Anaerobic Culture - Preliminary No growth in 48 hours. 06/26/24 08:45 Wound - Cervical Gram Stain - Final 06/26/24 08:45 Wound - Cervical Wound Culture - Final Enterococcus faecalis 06/26/24 08:45 Wound - Cervical Anaerobic Culture - Preliminary No growth in 48 hours. 06/26/24 08:45 Wound - Cervical Gram Stain - Final 06/26/24 08:45 Wound - Cervical Wound Culture - Final Staphylococcus lugdunensis Staphylococcus epidermidis 06/26/24 08:45 Wound - Cervical Anaerobic Culture - Preliminary No growth in 48 hours. 06/26/24 08:45 Tissue - Cervical Gram Stain - Final 06/26/24 08:45 Tissue - Cervical Wound Culture - Final Staphylococcus lugdunensis 06/26/24 08:45 Tissue - Cervical Anaerobic Culture - Final No anaerobic bacteria isolated. 06/18/24 18:25 Blood Culture (Wb) - Port Blood Culture - Final No growth in 5 days. 06/19/24 00:05 Wound - Back Gram Stain - Final 06/19/24 00:05 Wound - Back Wound Culture - Final Meth. resistant Staph. aureus Gram positive cesar 06/19/24 00:05 Wound - Back Skin and Soft Tissue MRSA/MSSA (PCR - Final Meth. resistant Staph. aureus 06/18/24 18:25 Urine, Clean Catch Urine Culture - Final Enterococcus faecalis 06/18/24 18:25 Mucosa - Nose SARS-CoV-2, Influenza & RSV (PCR) - Final Physical Exam Const alert and oriented x3 General Appearance: cooperative and comfortable HEENT normocephalic Head and Scalp: atraumatic Eyes General Eye: normal appearance of both eyes Resp normal respiratory effort Effort and Inspection: able to speak in complete sentences Cardio regular rate and regular rhythm Extremity normal to inspection Extremity Narrative: No significant swelling over lower extremities. No calf pain in dorsiflexion bilaterally. Skin Wound Narrative: Irrigating wound VAC over cervical/thoracic spine is holding suction well. No blood in the VAC. Neuro oriented x3 Psych cooperative Appearance: grossly normal Assessment & Plan Assessment/Plan (1) Open wound of tissue overlying spine: QUALIFIERS: Encounter type: initial encounter Laterality: u nspecified laterality Qualified Code(s): S21.209A - Unspecified open wound of unspecified back wall of thorax without penetration into thoracic cavity, initial encounter PLAN: Plan Postop OR 06/26/24 and 06/29/24. Wound culture 06/19/24 positive for MRSA and gram positive cesar. 06/26/24 preliminary operative tissue cultures positive for Staphylococcus lugdunensis, Staphylococcus epidermidis, and Enterococcus faecalis. ID following. Currently on Vancomycin (Unasyn just discontinued). Plan is he will have a total of 6 weeks IV Vanc. Continue Vera flow wound VAC with Dakin's. Patient states he has been walking in leger. Encouraged to continue to ambulate and to use incentive spirometer. Continue nutritional supplementation with Ariel BID. Tentative plan is muscle flap reconstruction 07/04/[address] Olivera. Charges/Coding Procedures Integumentary [id number]: [id number] Global Visit
[2024-06-30 15:15] VITALS: BP 101/57; PULSE 63; RESP 18; TEMP 36.3; O2SAT 94
[2024-06-30 16:39] LABS: Vancomycin, Random Level 15.3 ug/mL (0.0-15.0)
--- NOTE | 2024-06-30 16:59 | PCM.RX.CS ---
Consult Antibiotic Management Pharmacy has been consulted to manage selected antibiotic: Vancomycin Type of Intervention Type of Consult: Follow-up Prior Doses of Antibiotics Prior Doses of Antibiotics Received/Current Regimen: 750mg iv q12h Labs Labs: Sodium 137 mmol/L (136-145) 06/30/24 05:16 Potassium 4.1 mmol/L (3.5-5.1) 06/30/24 05:16 Chloride 102 mmol/L (98-107) 06/30/24 05:16 Carbon Dioxide 30.0 mmol/L (21.0-32.0) 06/30/24 05:16 Anion Gap 6 (5-15) 06/30/24 05:16 BUN 29 mg/dL (7-18) H 06/30/24 05:16 Creatinine 1.40 mg/dL (0.70-1.30) H 06/30/24 05:16 Est GFR (MDRD) Af Amer 65 mL/min (>60) 06/30/24 05:16 Est GFR (MDRD) Non-Af 54 mL/min (>60) L 06/30/24 05:16 BUN/Creatinine Ratio 20.7 RATIO (10-20) H 06/30/24 05:16 Glucose 101 mg/dL (74-106) 06/30/24 05:16 Vancomycin Trough 23.7 ug/mL (5.0-15.0) H 06/29/24 23:05 Random Vancomycin 15.3 ug/mL (0.0-15.0) H 06/30/24 15:52 Microbiology Microbiology: Microbiology 06/29/24 10:20 Wound Abcess - Aerobic & Anaerobic Swabs Gram Stain - Final 06/29/24 10:20 Wound Abcess - Aerobic & Anaerobic Swabs Wound Culture - Preliminary No growth-Final to follow 06/26/24 08:45 Tissue - Cervical Gram Stain - Final 06/26/24 08:45 Tissue - Cervical Wound Culture - Final No growth aerobically. 06/26/24 08:45 Tissue - Cervical Anaerobic Culture - Preliminary No growth in 48 hours. 06/26/24 08:45 Bone - Back Gram Stain - Final 06/26/24 08:45 Bone - Back Wound Culture - Final No growth aerobically. 06/26/24 08:45 Bone - Back Anaerobic Culture - Preliminary No growth in 48 hours. 06/26/24 08:45 Wound - Cervical Gram Stain - Final 06/26/24 08:45 Wound - Cervical Wound Culture - Final Enterococcus faecalis 06/26/24 08:45 Wound - Cervical Anaerobic Culture - Preliminary No growth in 48 hours. 06/26/24 08:45 Wound - Cervical Gram Stain - Final 06/26/24 08:45 Wound - Cervical Wound Culture - Final Staphylococcus lugdunensis Staphylococcus epidermidis 06/26/24 08:45 Wound - Cervical Anaerobic Culture - Preliminary No growth in 48 hours. 06/26/24 08:45 Tissue - Cervical Gram Stain - Final 06/26/24 08:45 Tissue - Cervical Wound Culture - Final Staphylococcus lugdunensis 06/26/24 08:45 Tissue - Cervical Anaerobic Culture - Final No anaerobic bacteria isolated. 06/18/24 18:25 Blood Culture (Wb) - Port Blood Culture - Final No growth in 5 days. 06/19/24 00:05 Wound - Back Gram Stain - Final 06/19/24 00:05 Wound - Back Wound Culture - Final Meth. resistant Staph. aureus Gram positive cesar 06/19/24 00:05 Wound - Back Skin and Soft Tissue MRSA/MSSA (PCR - Final Meth. resistant Staph. aureus 06/18/24 18:25 Urine, Clean Catch Urine Culture - Final Enterococcus faecalis 06/18/24 18:25 Mucosa - Nose SARS-CoV-2, Influenza & RSV (PCR) - Final Dosing Weight Weight used for dosin.2 kg Estimated Creatinine Clearance Estimated Creatinine Clearance: 52ml/min Goal Trough Goal Trough: 15-20 mcg/mL Pharmacy Plan for Drug Dosing Pharmacy Plan for Drug Dosing: Random level now 15.3 and in therapeutic range. Previous levels 23.7 and 20.1. Recommend changing dose from 750mg iv q12h to 1250mg iv q24h and getting a trough level before third dose. Pharmacy Service will continue to monitor and adjust dosing as required. Follow-Up Labs Follow-Up Labs: Trough: Vancomycin (10.6.24 @1730)
[2024-06-30] MEDS: Vancomycin HCl 1,250 MG in 0.9% Normal Saline (250mL Bag) 250 ML 167 MG IV (17:45)
[2024-06-30 21:24] VITALS: BP 116/57; PULSE 62; RESP 14; TEMP 36.6; O2SAT 98
[2024-06-30] MEDS: Menthol/Lanolin/Calamine/Znox 113 GM Tube 1 APPLIC TOPICAL (21:26)
[2024-06-30 21:27] VITALS: BP 116/57; PULSE 62
[2024-06-30] MEDS: Senna/Docusate Sodium 1 Tablet PO (21:27)
[2024-06-30] MEDS: MELATONIN 3 MG TABLET 6 MG PO (21:27)
[2024-07-01 03:13] VITALS: BP 109/54; PULSE 55; RESP 16; TEMP 36.5; O2SAT 94
[2024-07-01] MEDS: Levothyroxine 100 MCG Tablet PO (05:44)
[2024-07-01] MEDS: Menthol/Lanolin/Calamine/Znox 113 GM Tube 1 APPLIC TOPICAL ×2 (05:44→21:11)
[2024-07-01] MEDS: Gabapentin 100 MG Capsule PO ×3 (05:44→21:13)
[2024-07-01 05:58] LABS: Absolute Lymphocyte Count 0.58 X10^3/uL (0.83-4.51); Absolute Neutrophil Count 3.3 X10^3/uL (2.0-7.7); Basophil# 0.05 X10^3/uL; Eosinophil# 0.32 X10^3/uL; Eosinophils% 6.5 % (0-5); Hematocrit 31.2 % (40-54); Hemoglobin 9.7 g/dL (13.0-16.5); Lymphocyte # 0.58 X10^3/ul (0.83-4.51); Lymphocyte % 11.8 % (19-41); Mean Corp Hgb Conc 31.1 g/dL (32-36); Mean Corpuscular Hgb 28.4 pg (27.0-32.0); Mean Corpuscular Volume 91.5 fL (80-94); Mean Platelet Vol. 10.4 fl (6.2-12.0); Monocyte# 0.61 X10^3/uL; Monocyte% 12.4 % (0-10); NRBC Flagged by Analyzer 0 % (0-5); Neutrophil # 3.34 X10^3/uL (2.7-7.7); Neutrophil % 67.7 % (47-70); POSITIVE DIFFERENTIAL YES; Platelet Count 262 K/mm3 (150-450); RBC Distribution Width CV 16.6 % (11.6-14.6); RBC Distribution Width SD 55.2 fl (35.1-43.9); Red Blood Count 3.41 M/mm3 (4.6-6.2); White Blood Count 4.9 K/mm3 (4.4-11.0)
[2024-07-01 06:52] LABS: Anion Gap 5 (5-15); BUN 31 mg/dL (7-18); BUN/Creat Ratio 21.7 RATIO (10-20); Calcium,Total 9.5 mg/dL (8.5-10.1); Chloride 102 mmol/L (98-107); Creatinine, Serum 1.43 mg/dL (0.70-1.30); EST Glomerular Filtration Rate 52 mL/min (>60); Est Glom Filt Rate - Afr Amer 63 mL/min (>60); Glucose 105 mg/dL (74-106); Potassium 4.1 mmol/L (3.5-5.1); Sodium Level 138 mmol/L (136-145)
--- NOTE | 2024-07-01 07:24 | PN.HOSP_ITS ---
Reason for Visit Reason for Visit: Diagnoses Paraplegia, unspecified (06/18/24) Unspecified open wound of unspecified back wall of thorax without penetration into thoracic cavity, initial encounter (06/18/24) Radiation sickness, unspecified, initial encounter (06/18/24) Radiation sickness, unspecified, sequela (06/18/24) Infection following a procedure, unspecified, initial encounter (06/18/24) Subjective Subjective Patient seen had a relatively uneventful night. He denies any pain. Objective Data Objective Data Vital Signs: Vital Signs Temp Pulse Resp BP Pulse Ox O2 Del Method O2 Flow Rate 97.7 F L 55 L 16 109/54 L 94 Room Air 2 07/01/24 03:13 07/01/24 03:13 07/01/24 03:13 07/01/24 03:13 07/01/24 03:13 07/01/24 03:13 06/29/24 11:14 Oxygen Flow Rate (L/min) 2 Oxygen Delivery Method Room Air Weight: 86.2 kg Body Mass Index (BMI) 31.6 Intake & Output: Intake and Output for Last 24 Hours 06/29/24 06/30/24 07/01/24 23:59 23:59 23:59 Intake Total 1653.75 / 1653.75 1756.75 / 1756.75 120 / 120 Output Total 2650 / 2650 2800 / 2800 1400 / 1400 Balance -996.25 / -996.25 -1043.25 / -1043.25 -1280 / -1280 Lab / Micro Data 07/01/24 05:00 07/01/24 05:00 Labs: Laboratory Results - last 24 hr 06/30/24 07:25: Random Vancomycin 20.1 H 06/30/24 15:52: Random Vancomycin 15.3 H 07/01/24 05:00: WBC 4.9, RBC 3.41 L, Hgb 9.7 L, Hct 31.2 L, MCV 91.5, MCH 28.4, MCHC 31.1 L, RDW Std Deviation 55.2 H, RDW Coeff of Hattie 16.6 H, Plt Count 262, MPV 10.4, Immature Gran % (Auto) 0.600, Neut % (Auto) 67.7, Lymph % (Auto) 11.8 L, Tucker % (Auto) 12.4 H, Eos % (Auto) 6.5 H, Baso % (Auto) 1.0, Absolute Neuts (auto) 3.3, Absolute Lymphs (auto) 0.58 L, Nucleated RBC % 0, Sodium 138, Potassium 4.1, Chloride 102, Carbon Dioxide 30.0, Anion Gap 5, BUN 31 H, C reatinine 1.43 H, Estim Creat Clear Calc 51.30, Est GFR (MDRD) Af Amer 63, Est GFR (MDRD) Non-Af 52 L, BUN/Creatinine Ratio 21.7 H, Glucose 105, Calcium 9.5 Micro: Microbiology 06/26/24 08:45 Bone - Back Gram Stain - Final 06/26/24 08:45 Bone - Back Wound Culture - Final No growth aerobically. 06/26/24 08:45 Bone - Back Anaerobic Culture - Final No growth in 5 days. 06/26/24 08:45 Wound - Cervical Gram Stain - Final 06/26/24 08:45 Wound - Cervical Wound Culture - Final Staphylococcus lugdunensis Staphylococcus epidermidis 06/26/24 08:45 Wound - Cervical Anaerobic Culture - Final No growth in 5 days. 06/26/24 08:45 Wound - Cervical Gram Stain - Final 06/26/24 08:45 Wound - Cervical Wound Culture - Final Enterococcus faecalis 06/26/24 08:45 Wound - Cervical Anaerobic Culture - Final No growth in 5 days. 06/26/24 08:45 Tissue - Cervical Gram Stain - Final 06/26/24 08:45 Tissue - Cervical Wound Culture - Final No growth aerobically. 06/26/24 08:45 Tissue - Cervical Anaerobic Culture - Final No growth in 5 days. 06/29/24 10:20 Wound Abcess - Aerobic & Anaerobic Swabs Gram Stain - Final 06/29/24 10:20 Wound Abcess - Aerobic & Anaerobic Swabs Wound Culture - Preliminary No growth-Final to follow 06/26/24 08:45 Tissue - Cervical Gram Stain - Final 06/26/24 08:45 Tissue - Cervical Wound Culture - Final Staphylococcus lugdunensis 06/26/24 08:45 Tissue - Cervical Anaerobic Culture - Final No anaerobic bacteria isolated. 06/18/24 18:25 Blood Culture (Wb) - Port Blood Culture - Final No growth in 5 days. 06/19/24 00:05 Wound - Back Gram Stain - Final 06/19/24 00:05 Wound - Back Wound Culture - Final Meth. resistant Staph. aureus Gram positive cesar 06/19/24 00:05 Wound - Back Skin and Soft Tissue MRSA/MSSA (PCR - Final Meth. resistant Staph. aureus 06/18/24 18:25 Urine, Clean Catch Urine Culture - Final Enterococcus faecalis 06/18/24 18:25 Mucosa - Nose SARS-CoV-2, Influenza & RSV (PCR) - Final Physical Exam Narrative GENERAL: cooperative HEENT: Atraumatic; normocephalic EYES; Anicteric, Normal Conjunctiva NECK; supple, normal thyroid, RESPIRATORY: Diminished to auscultation CARDIOVASCULAR: Regular S1 S2, GI: soft, normoactive bowel sounds, : No Renal angle tenderness; EXTREMITIES: No edema, no clubbing, MUSCULOSKELETAL: no muscle wasting NEURO: Awake; oriented to place and person SKIN: Wound VAC upper back PSYCH; Flat affect Const alert, oriented x3 and no apparent distress General Appearance: cooperative, well kempt and well developed Orientation / Consciousness: awake, oriented to person, oriented to place and oriented to time HEENT normocephalic, head/scalp atraumatic and moist oral mucous membranes Eyes PERRL, EOMs intact bilaterally and conjunctivae normal Neck supple, no JVD and thyroid normal General: trachea midline Resp normal respiratory effort, no retractions, no use of accessory muscles and clear to auscultation bilaterally Auscultation: Negative for rales, rhonchi or wheezes Cardio regular rate, regular rhythm, S1 normal heart sound, S2 normal heart sound, no murmurs, no rub and no gallops GI normal to inspection, nondistended, normoactive bowel sounds, soft to palpation, non-tender and non-distended Skin Skin Narrative: Patient's nonhealing midline back wounds were not examined at this time Neuro oriented x3 and CN's II-XII intact bilaterally Neuro Narrative: Patient has lower extremity weakness Sensorium / Orientation: awake and alert Speech: speech normal Psych affect normal Assessment & Plan Assessment/Plan (1) Open wound of tissue overlying spine: QUALIFIERS: Encounter type: initial encounter Laterality: u nspecified laterality Qualified Code(s): S21.209A - Unspecified open wound of unspecified back wall of thorax without penetration into thoracic cavity, initial encounter PLAN: Plan Patient is a 68-year-old gentleman with history of previous radiation to the back from multiple myeloma who presented with nonhealing ulceration 1. 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 Underwent Posterior cervical thoracic irrigation, debridement, wound exploration; Posterior cervical thoracic hardware exploration; Posterior cervical thoracic bone debridement on 06/26/2024. Plan is for patient to undergo intraoperative VAC change on 06/29/[address] Tijerina and Dr. Keene. ID on board managing antibiotic therapy ? 06/29/2024atient scheduled to undergo undergo intraoperative VAC change on 06/29/[address] Olivera and Dr. Mantilla ?06/30/2024 patient underwent posterior cervical thoracic irrigation, debridement, wound exploration, Posterior cervical thoracic hardware exploration, Posterior cervical thoracic bone debridement on 06/29/2024 ?07/01/2023; wound cultures came back positive for small growth of Enterococcus surgical cultures from 06/26/2024 grew staph lugdunensus and S. epi. ID discontinued Unasyn plan is for patient to be discharged home when ready with 6 weeks of IV vancomycin through his port 2. 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 This complicates patient's care. Patient walks with a walker 3. Class I obesity with BMI of 31.8 ? Weight loss advised 4. Hypertension ? Blood pressure controlled, home medications continued with dose adjustment as needed 5. Multiple myeloma ? Patient is followed by Dr. Perez patient previously treated with thoracic decompression in October 2022, radiation therapy in December 2022 to T1-2 8. Patient did receive daratumumab Revlimid starting February 2023 (initially 25 mg then reduced to 15 Mg 3 weeks on 1 week off) and dexamethasone. [place] Holiday from Revlimid March 2024? 6. Hypothyroidism ? Patient is on levothyroxine home dose continued 7. Previous history of VTE ? Patient is on apixaban; Held in anticipation of surgical intervention started on enoxaparin ? 06/2024 patient was started on apixaban with plans to hold 24 hours prior to his next intervention planned on 07/04/2024 8. Anemia ? Secondary to chronic disorder monitoring H&H and transfuse if patient becomes symptomatic or hemoglobin falls below 7 9. DVT prophylaxis ? On enoxaparin 10. Physical deconditioning ? Requested for PT OT eval and social and human services assistant to assist with discharge planning Time spent in the patient's overall evaluation,decision-making process, review of diagnostic data, adjustment of management, discussion with other providers, nursing nursing and ancillary staff involved in patient's care documentation, 36 Minutes Charges/Coding Visit Charges Inpatient E&M: 75040 Subs Hosp L2
[2024-07-01 09:38] VITALS: BP 126/64; PULSE 71; RESP 16; TEMP 36.6; O2SAT 97
[2024-07-01] MEDS: Ferrous Sulfate 325 MG Tablet PO (09:42)
[2024-07-01] MEDS: Pantoprazole Sodium 20 MG Tablet PO (09:42)
[2024-07-01 09:43] VITALS: BP 126/64; PULSE 71
[2024-07-01] MEDS: Baclofen 10 MG Tablet 5 MG PO ×2 (09:43→21:10)
[2024-07-01] MEDS: Metoprolol Tartrate 50 MG Tablet PO ×2 (09:43→21:10)
[2024-07-01] MEDS: Polyethylene Glycol 3350 17 GM PACKET PO (09:43)
[2024-07-01] MEDS: Senna/Docusate Sodium 1 Tablet PO ×2 (09:43→21:14)
[2024-07-01] MEDS: APIXABAN 5 MG TABLET PO ×2 (09:43→21:10)
[2024-07-01] MEDS: amLODIPine 10 MG Tablet PO (09:43)
[2024-07-01] MEDS: Acyclovir 200 MG Capsule 400 MG PO ×2 (09:49→21:10)
[2024-07-01] MEDS: Ascorbic Acid 500 MG Tablet 1000 MG PO ×2 (09:49→21:14)
[2024-07-01] MEDS: Sodium Hypochlorite (Dakin's) 0.125% Wound Irrigation IRRIGATION (10:02)
[2024-07-01] MEDS: 0.9 % NaCl (Sterile) Posiflush 10 mL IV (14:35)
[2024-07-01 16:08] VITALS: BP 108/58; PULSE 64; RESP 16; TEMP 36.4; O2SAT 95
[2024-07-01 21:06] VITALS: BP 126/69; PULSE 66; RESP 16; TEMP 37.3; O2SAT 100
[2024-07-01] MEDS: Vancomycin HCl 1,250 MG in 0.9% Normal Saline (250mL Bag) 250 ML 167 MG IV (21:08)
[2024-07-01 21:10] VITALS: BP 126/69; PULSE 66
[2024-07-01] MEDS: MELATONIN 3 MG TABLET 6 MG PO (21:10)
[2024-07-02] VITALS (7 sets, daily range): BP systolic 111–126; BP diastolic 56–62; PULSE 57–61; RESP 16–18; TEMP 36.4–37.2; O2SAT 95–98; BMI 30.6
[2024-07-02] MEDS: Levothyroxine 100 MCG Tablet PO (05:28)
[2024-07-02] MEDS: Menthol/Lanolin/Calamine/Znox 113 GM Tube 1 APPLIC TOPICAL ×3 (05:28→22:37)
[2024-07-02] MEDS: Gabapentin 100 MG Capsule PO ×3 (05:28→22:35)
[2024-07-02 05:32] LABS: Absolute Lymphocyte Count 0.48 X10^3/uL (0.83-4.51); Absolute Neutrophil Count 3.3 X10^3/uL (2.0-7.7); Basophil# 0.05 X10^3/uL; Eosinophil# 0.31 X10^3/uL; Eosinophils% 6.5 % (0-5); Hematocrit 31.1 % (40-54); Hemoglobin 9.7 g/dL (13.0-16.5); Lymphocyte # 0.48 X10^3/ul (0.83-4.51); Mean Corp Hgb Conc 31.2 g/dL (32-36); Mean Corpuscular Hgb 28.8 pg (27.0-32.0); Mean Corpuscular Volume 92.3 fL (80-94); Mean Platelet Vol. 10.4 fl (6.2-12.0); Monocyte# 0.64 X10^3/uL; Monocyte% 13.4 % (0-10); NRBC Flagged by Analyzer 0 % (0-5); Neutrophil # 3.26 X10^3/uL (2.7-7.7); Neutrophil % 68.3 % (47-70); POSITIVE DIFFERENTIAL YES; Platelet Count 256 K/mm3 (150-450); RBC Distribution Width CV 16.4 % (11.6-14.6); RBC Distribution Width SD 55.6 fl (35.1-43.9); Red Blood Count 3.37 M/mm3 (4.6-6.2); White Blood Count 4.8 K/mm3 (4.4-11.0)
[2024-07-02 06:01] LABS: Anion Gap 6 (5-15); BUN 33 mg/dL (7-18); BUN/Creat Ratio 22.3 RATIO (10-20); Calcium,Total 9.2 mg/dL (8.5-10.1); Chloride 102 mmol/L (98-107); Creatinine, Serum 1.48 mg/dL (0.70-1.30); EST Glomerular Filtration Rate 50 mL/min (>60); Est Glom Filt Rate - Afr Amer 61 mL/min (>60); Estimated Creatinine Clearance 49.57 ml/min; Glucose 103 mg/dL (74-106); Potassium 3.9 mmol/L (3.5-5.1); Sodium Level 137 mmol/L (136-145)
--- NOTE | 2024-07-02 07:19 | PN.HOSP_ITS ---
Reason for Visit Reason for Visit: Diagnoses Paraplegia, unspecified (06/18/24) Unspecified open wound of unspecified back wall of thorax without penetration into thoracic cavity, initial encounter (06/18/24) Radiation sickness, unspecified, initial encounter (06/18/24) Radiation sickness, unspecified, sequela (06/18/24) Infection following a procedure, unspecified, initial encounter (06/18/24) Subjective Subjective Patient seen currently denies any complaints. Diagnostic data reviewed significant for hemoglobin of 9.7 and creatinine 1.48 Objective Data Objective Data Vital Signs: Vital Signs Temp Pulse Resp BP Pulse Ox O2 Del Method O2 Flow Rate 97.6 F L 57 L 16 113/56 L 95 Room Air 2 07/02/24 03:19 07/02/24 03:19 07/02/24 03:19 07/02/24 03:19 07/02/24 03:19 07/02/24 03:25 06/29/24 11:14 Oxygen Flow Rate (L/min) 2 Oxygen Delivery Method Room Air Weight: 83.4 kg Body Mass Index (BMI) 30.6 Intake & Output: Intake and Output for Last 24 Hours 06/30/24 07/01/24 07/02/24 23:59 23:59 23:59 Intake Total 1756.75 / 1756.75 395 / 395 Output Total 2800 / 2800 3600 / 3600 800 / 800 Balance -1043.25 / -1043.25 -3205 / -3205 -800 / -800 Lab / Micro Data 07/02/24 04:00 07/02/24 04:00 Labs: Laboratory Results - last 24 hr 07/02/24 04:00: WBC 4.8, RBC 3.37 L, Hgb 9.7 L, Hct 31.1 L, MCV 92.3, MCH 28.8, MCHC 31.2 L, RDW Std Deviation 55.6 H, RDW Coeff of Hattie 16.4 H, Plt Count 256, MPV 10.4, Immature Gran % (Auto) 0.800, Neut % (Auto) 68.3, Lymph % (Auto) 10.0 L, [place] % (Auto) 13.4 H, Eos % (Auto) 6.5 H, Baso % (Auto) 1.0, Absolute Neuts (auto) 3.3, Absolute Lymphs (auto) 0.48 L, Nucleated RBC % 0, Sodium 137, Potassium 3.9, Chloride 102, Carbon Dioxide 29.0, Anion Gap 6, BUN 33 H, C reatinine 1.48 H, Estim Creat Clear Calc 49.57, Est GFR (MDRD) Af Amer 61, Est GFR (MDRD) Non-Af 50 L, BUN/Creatinine Ratio 22.3 H, Glucose 103, Calcium 9.2 Micro: Microbiology 06/29/24 10:20 Wound Abcess - Aerobic & Anaerobic Swabs Gram Stain - Final 06/29/24 10:20 Wound Abcess - Aerobic & Anaerobic Swabs Wound Culture - Preliminary No growth-Final to follow 06/29/24 10:20 Wound Abcess - Aerobic & Anaerobic Swabs Anaerobic Culture - Preliminary No growth in 48 hours. 06/26/24 08:45 Bone - Back Gram Stain - Final 06/26/24 08:45 Bone - Back Wound Culture - Final No growth aerobically. 06/26/24 08:45 Bone - Back Anaerobic Culture - Final No growth in 5 days. 06/26/24 08:45 Wound - Cervical Gram Stain - Final 06/26/24 08:45 Wound - Cervical Wound Culture - Final Staphylococcus lugdunensis Staphylococcus epidermidis 06/26/24 08:45 Wound - Cervical Anaerobic Culture - Final No growth in 5 days. 06/26/24 08:45 Wound - Cervical Gram Stain - Final 06/26/24 08:45 Wound - Cervical Wound Culture - Final Enterococcus faecalis 06/26/24 08:45 Wound - Cervical Anaerobic Culture - Final No growth in 5 days. 06/26/24 08:45 Tissue - Cervical Gram Stain - Final 06/26/24 08:45 Tissue - Cervical Wound Culture - Final No growth aerobically. 06/26/24 08:45 Tissue - Cervical Anaerobic Culture - Final No growth in 5 days. 06/26/24 08:45 Tissue - Cervical Gram Stain - Final 06/26/24 08:45 Tissue - Cervical Wound Culture - Final Staphylococcus lugdunensis 06/26/24 08:45 Tissue - Cervical Anaerobic Culture - Final No anaerobic bacteria isolated. 06/18/24 18:25 Blood Culture (Wb) - Port Blood Culture - Final No growth in 5 days. 06/19/24 00:05 Wound - Back Gram Stain - Final 06/19/24 00:05 Wound - Back Wound Culture - Final Meth. resistant Staph. aureus Gram positive cesar 06/19/24 00:05 Wound - Back Skin and Soft Tissue MRSA/MSSA (PCR - Final Meth. resistant Staph. aureus 06/18/24 18:25 Urine, Clean Catch Urine Culture - Final Enterococcus faecalis 06/18/24 18:25 Mucosa - Nose SARS-CoV-2, Influenza & RSV (PCR) - Final Physical Exam Narrative GENERAL: cooperative HEENT: Atraumatic; normocephalic EYES; Anicteric, Normal Conjunctiva NECK; supple, normal thyroid, RESPIRATORY: Diminished to auscultation CARDIOVASCULAR: Regular S1 S2, GI: soft, normoactive bowel sounds, : No Renal angle tenderness; EXTREMITIES: No edema, no clubbing, MUSCULOSKELETAL: no muscle wasting NEURO: Awake; oriented to place and person SKIN: Wound VAC upper back PSYCH; Flat affect Assessment & Plan Assessment/Plan (1) Open wound of tissue overlying spine: QUALIFIERS: Encounter type: initial encounter Laterality: u nspecified laterality Qualified Code(s): S21.209A - Unspecified open wound of unspecified back wall of thorax without penetration into thoracic cavity, initial encounter PLAN: Plan Patient is a 68-year-old gentleman with history of previous radiation to the back from multiple myeloma who presented with nonhealing ulceration 1. 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 Underwent Posterior cervical thoracic irrigation, debridement, wound exploration; Posterior cervical thoracic hardware exploration; Posterior cervical thoracic bone debridement on 06/26/2024. Plan is for patient to undergo intraoperative VAC change on 06/29/[address] Tijerina and Dr. Keene. ID on board managing antibiotic therapy ? 06/29/2024atient scheduled to undergo undergo intraoperative VAC change on 06/29/[address] Olivera and Dr. Mantilla ?06/30/2024 patient underwent posterior cervical thoracic irrigation, debridement, wound exploration, Posterior cervical thoracic hardware exploration, Posterior cervical thoracic bone debridement on 06/29/2024 ?07/01/2024; wound cultures came back positive for small growth of Enterococcus surgical cultures from 06/26/2024 grew staph lugdunensus and S. epi. ID discontinued Unasyn plan is for patient to be discharged home when ready with 6 weeks of IV vancomycin through his port ? 07/02/2024; remains on broad-spectrum antibiotics 2. 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 This complicates patient's care. Patient walks with a walker 3. Class I obesity with BMI of 31.8 ? Weight loss advised 4. Hypertension ? Blood pressure controlled, home medications continued with dose adjustment as needed 5. Multiple myeloma ? Patient is followed by Dr. Perez patient previously treated with thoracic decompression in October 2022, radiation therapy in December 2022 to T1-2 8. Patient did receive daratumumab Revlimid starting February 2023 (initially 25 mg then reduced to 15 Mg 3 weeks on 1 week off) and dexamethasone. NM Holiday from Revlimid March 2024? 6. Hypothyroidism ? Patient is on levothyroxine home dose continued 7. Previous history of VTE ? Patient is on apixaban; Held in anticipation of surgical intervention started on enoxaparin ? 06/2024 patient was started on apixaban with plans to hold 24 hours prior to his next intervention planned on 07/04/2024 8. Anemia ? Secondary to chronic disorder monitoring H&H and transfuse if patient becomes symptomatic or hemoglobin falls below 7 ? 07/02/2024; hemoglobin remains at 9.7 9. DVT prophylaxis ? On enoxaparin 10. Physical deconditioning ? Requested for PT OT eval and social studies department chair to assist with discharge planning 11. Acute kidney injury ? Patient creatinine from 06/19/2024 was 1.1, was 1.76 on 06/24/2024, trending creatinine which is currently down to 1.48 Time spent in the patient's overall evaluation,decision-making process, review of diagnostic data, adjustment of management, discussion with other providers, nursing nursing and ancillary staff involved in patient's care documentation, 36 Minutes Charges/Coding Visit Charges Inpatient E&M: 10392 Subs Hosp L2
[2024-07-02] MEDS: Polyethylene Glycol 3350 17 GM PACKET PO (10:54)
[2024-07-02] MEDS: Ascorbic Acid 500 MG Tablet 1000 MG PO ×2 (10:56→22:36)
[2024-07-02] MEDS: Pantoprazole Sodium 20 MG Tablet PO (10:57)
[2024-07-02] MEDS: Metoprolol Tartrate 50 MG Tablet PO ×2 (10:57→22:36)
[2024-07-02] MEDS: Acyclovir 200 MG Capsule 400 MG PO ×2 (10:57→22:35)
[2024-07-02] MEDS: Baclofen 10 MG Tablet 5 MG PO ×2 (10:58→22:36)
[2024-07-02] MEDS: amLODIPine 10 MG Tablet PO (10:59)
[2024-07-02] MEDS: Ferrous Sulfate 325 MG Tablet PO (10:59)
[2024-07-02] MEDS: APIXABAN 5 MG TABLET PO ×2 (10:59→22:36)
--- NOTE | 2024-07-02 17:50 | PCM.RX.CS ---
Consult Antibiotic Management Pharmacy has been consulted to manage selected antibiotic: Vancomycin Type of Intervention Type of Consult: Follow-up Suspected Infection Suspected Infection: Skin/Soft tissue Labs Labs: Sodium 137 mmol/L (136-145) 07/02/24 04:00 Potassium 3.9 mmol/L (3.5-5.1) 07/02/24 04:00 Chloride 102 mmol/L (98-107) 07/02/24 04:00 Carbon Dioxide 29.0 mmol/L (21.0-32.0) 07/02/24 04:00 Anion Gap 6 (5-15) 07/02/24 04:00 BUN 33 mg/dL (7-18) H 07/02/24 04:00 Creatinine 1.48 mg/dL (0.70-1.30) H 07/02/24 04:00 Est GFR (MDRD) Af Amer 61 mL/min (>60) 07/02/24 04:00 Est GFR (MDRD) Non-Af 50 mL/min (>60) L 07/02/24 04:00 BUN/Creatinine Ratio 22.3 RATIO (10-20) H 07/02/24 04:00 Glucose 103 mg/dL (74-106) 07/02/24 04:00 Vancomycin Trough 17.0 ug/mL (5.0-15.0) H 07/02/24 17:10 Random Vancomycin 15.3 ug/mL (0.0-15.0) H 06/30/24 15:52 Microbiology Microbiology: Microbiology 06/29/24 10:20 Wound Abcess - Aerobic & Anaerobic Swabs Gram Stain - Final 06/29/24 10:20 Wound Abcess - Aerobic & Anaerobic Swabs Wound Culture - Final No growth aerobically. 06/29/24 10:20 Wound Abcess - Aerobic & Anaerobic Swabs Anaerobic Culture - Preliminary No growth in 48 hours. 06/26/24 08:45 Bone - Back Gram Stain - Final 06/26/24 08:45 Bone - Back Wound Culture - Final No growth aerobically. 06/26/24 08:45 Bone - Back Anaerobic Culture - Final No growth in 5 days. 06/26/24 08:45 Wound - Cervical Gram Stain - Final 06/26/24 08:45 Wound - Cervical Wound Culture - Final Staphylococcus lugdunensis Staphylococcus epidermidis 06/26/24 08:45 Wound - Cervical Anaerobic Culture - Final No growth in 5 days. 06/26/24 08:45 Wound - Cervical Gram Stain - Final 06/26/24 08:45 Wound - Cervical Wound Culture - Final Enterococcus faecalis 06/26/24 08:45 Wound - Cervical Anaerobic Culture - Final No growth in 5 days. 06/26/24 08:45 Tissue - Cervical Gram Stain - Final 06/26/24 08:45 Tissue - Cervical Wound Culture - Final No growth aerobically. 06/26/24 08:45 Tissue - Cervical Anaerobic Culture - Final No growth in 5 days. 06/26/24 08:45 Tissue - Cervical Gram Stain - Final 06/26/24 08:45 Tissue - Cervical Wound Culture - Final Staphylococcus lugdunensis 06/26/24 08:45 Tissue - Cervical Anaerobic Culture - Final No anaerobic bacteria isolated. 06/18/24 18:25 Blood Culture (Wb) - Port Blood Culture - Final No growth in 5 days. 06/19/24 00:05 Wound - Back Gram Stain - Final 06/19/24 00:05 Wound - Back Wound Culture - Final Meth. resistant Staph. aureus Gram positive cesar 06/19/24 00:05 Wound - Back Skin and Soft Tissue MRSA/MSSA (PCR - Final Meth. resistant Staph. aureus 06/18/24 18:25 Urine, Clean Catch Urine Culture - Final Enterococcus faecalis 06/18/24 18:25 Mucosa - Nose SARS-CoV-2, Influenza & RSV (PCR) - Final Goal Trough Goal Trough: 15-20 mcg/mL Pharmacy Plan for Drug Dosing Pharmacy Plan for Drug Dosing: VANCOMYCIN LEVEL RECEIVED Current Vancomycin Dose: 1250mg q24h (at 1800) Number of Doses Received: x2 of current 1250mg dose Vancomycin Level: 17 (drawn 07/02 at 1710) Hours Since Last Dose: 20 hours since last 1250mg dose on 07/01 at 2108 Renal Function: SrCr 1.48 Renal Function Trend: SrCr stable Lab/Micro: Vancomycin Plan/Comments: resulted trough of 17 is within the ordered goal trough range of 15-20. recommend continuing current dose of 1250mg q24h and checking a trough prior to the 4th dose Pending Level: 07/05/24 at 1730 Pharmacy Service will continue to monitor and adjust dosing as required. Follow-Up Labs Follow-Up Labs: Trough: Vancomycin (07/05/24 at 1730)
[2024-07-02] MEDS: Vancomycin Trough/Random Due 1 LAB MC (18:04)
[2024-07-02] MEDS: Vancomycin HCl 1,250 MG in 0.9% Normal Saline (250mL Bag) 250 ML 167 MG IV (18:33)
[2024-07-02] MEDS: 0.9 % NaCl (Sterile) Posiflush 10 mL IV (18:33)
[2024-07-02] MEDS: MELATONIN 3 MG TABLET 6 MG PO (22:36)
[2024-07-03 03:56] VITALS: BP 124/64; PULSE 54; RESP 16; TEMP 36.7; O2SAT 95
[2024-07-03 04:14] VITALS: BMI 30.5
[2024-07-03] MEDS: Levothyroxine 100 MCG Tablet PO (05:15)
[2024-07-03] MEDS: Menthol/Lanolin/Calamine/Znox 113 GM Tube 1 APPLIC TOPICAL ×3 (05:16→22:22)
[2024-07-03] MEDS: Gabapentin 100 MG Capsule PO ×3 (05:16→22:21)
[2024-07-03 05:45] LABS: Absolute Lymphocyte Count 0.53 X10^3/uL (0.83-4.51); Absolute Neutrophil Count 3.7 X10^3/uL (2.0-7.7); Basophil# 0.06 X10^3/uL; Basophil% 1.1 % (0-1); Eosinophils% 5.6 % (0-5); Hematocrit 31.7 % (40-54); Hemoglobin 9.9 g/dL (13.0-16.5); Lymphocyte # 0.53 X10^3/ul (0.83-4.51); Lymphocyte % 9.9 % (19-41); Mean Corp Hgb Conc 31.2 g/dL (32-36); Mean Corpuscular Hgb 28.8 pg (27.0-32.0); Mean Corpuscular Volume 92.2 fL (80-94); Mean Platelet Vol. 10.1 fl (6.2-12.0); Monocyte# 0.74 X10^3/uL; Monocyte% 13.8 % (0-10); NRBC Flagged by Analyzer 0 % (0-5); POSITIVE DIFFERENTIAL YES; Platelet Count 238 K/mm3 (150-450); RBC Distribution Width CV 16.2 % (11.6-14.6); RBC Distribution Width SD 54.4 fl (35.1-43.9); Red Blood Count 3.44 M/mm3 (4.6-6.2); White Blood Count 5.4 K/mm3 (4.4-11.0)
[2024-07-03 06:05] LABS: Anion Gap 5 (5-15); BUN 36 mg/dL (7-18); BUN/Creat Ratio 26.1 RATIO (10-20); Calcium,Total 9.6 mg/dL (8.5-10.1); Chloride 100 mmol/L (98-107); Creatinine, Serum 1.38 mg/dL (0.70-1.30); EST Glomerular Filtration Rate 55 mL/min (>60); Est Glom Filt Rate - Afr Amer 66 mL/min (>60); Estimated Creatinine Clearance 52.27 ml/min; Glucose 102 mg/dL (74-106); Sodium Level 136 mmol/L (136-145)
[2024-07-03 08:05] VITALS: PULSE 61
[2024-07-03] MEDS: Metoprolol Tartrate 50 MG Tablet PO ×2 (08:05→22:47)
[2024-07-03] MEDS: Ferrous Sulfate 325 MG Tablet PO (08:05)
[2024-07-03] MEDS: amLODIPine 10 MG Tablet PO (08:06)
[2024-07-03] MEDS: Acyclovir 200 MG Capsule 400 MG PO ×2 (08:06→22:48)
[2024-07-03] MEDS: Pantoprazole Sodium 20 MG Tablet PO (08:06)
[2024-07-03] MEDS: Baclofen 10 MG Tablet 5 MG PO ×2 (08:07→22:22)
[2024-07-03] MEDS: Ascorbic Acid 500 MG Tablet 1000 MG PO ×2 (08:07→22:48)
[2024-07-03] MEDS: Senna/Docusate Sodium 1 Tablet PO (08:08)
[2024-07-03 08:58] VITALS: BP 125/59; PULSE 61; RESP 15; TEMP 36.5; O2SAT 96
--- NOTE | 2024-07-03 09:26 | PN.SURG_ITS ---
Subjective Subjective Doing well today. Pain controlled. All questions about tomorrow's surgery have been answered. Objective Data Objective Data Vital Signs: Vital Signs Temp Pulse Resp BP Pulse Ox O2 Del Method O2 Flow Rate 97.7 F L 61 15 125/59 H 96 Room Air 2 07/03/24 08:58 07/03/24 08:58 07/03/24 08:58 07/03/24 08:58 07/03/24 08:58 07/03/24 08:58 06/29/24 11:14 Oxygen Flow Rate (L/min) 2 Oxygen Delivery Method Room Air Weight: 183 lb 6.793 oz Body Mass Index (BMI) 30.5 Intake & Output: Intake and Output for Last 24 Hours 07/01/24 07/02/24 07/03/24 23:59 23:59 23:59 Intake Total 395 / 395 1775 / 1775 Output Total 3600 / 3600 2700 / 3450 2100 / 2100 Balance -3205 / -3205 -925 / -1675 -2100 / -2100 Lab / Micro Data 07/03/24 05:25 07/03/24 05:25 Labs: Laboratory Results - last 24 hr 07/02/24 17:10: Vancomycin Trough 17.0 H 07/03/24 05:25: WBC 5.4, RBC 3.44 L, Hgb 9.9 L, Hct 31.7 L, MCV 92.2, MCH 28.8, MCHC 31.2 L, RDW Std Deviation 54.4 H, RDW Coeff of Hattie 16.2 H, Plt Count 238, MPV 10.1, Immature Gran % (Auto) 0.600, Neut % (Auto) 69.0, Lymph % (Auto) 9.9 L , [place]ett % (Auto) 13.8 H, Eos % (Auto) 5.6 H, Baso % (Auto) 1.1 H, Absolute Neuts (auto) 3.7, Absolute Lymphs (auto) 0.53 L, Nucleated RBC % 0, Sodium 136, Potassium 4.0, Chloride 100, Carbon Dioxide 30.0, Anion Gap 5, BUN 36 H, C reatinine 1.38 H, Estim Creat Clear Calc 52.27, Est GFR (MDRD) Af Amer 66, Est GFR (MDRD) Non-Af 55 L, BUN/Creatinine Ratio 26.1 H, Glucose 102, Calcium 9.6 Micro: Microbiology 06/29/24 10:20 Wound Abcess - Aerobic & Anaerobic Swabs Gram Stain - Final 06/29/24 10:20 Wound Abcess - Aerobic & Anaerobic Swabs Wound Culture - Final No growth aerobically. 06/29/24 10:20 Wound Abcess - Aerobic & Anaerobic Swabs Anaerobic Culture - Preliminary No growth in 48 hours. 06/26/24 08:45 Bone - Back Gram Stain - Final 06/26/24 08:45 Bone - Back Wound Culture - Final No growth aerobically. 06/26/24 08:45 Bone - Back Anaerobic Culture - Final No growth in 5 days. 06/26/24 08:45 Wound - Cervical Gram Stain - Final 06/26/24 08:45 Wound - Cervical Wound Culture - Final Staphylococcus lugdunensis Staphylococcus epidermidis 06/26/24 08:45 Wound - Cervical Anaerobic Culture - Final No growth in 5 days. 06/26/24 08:45 Wound - Cervical Gram Stain - Final 06/26/24 08:45 Wound - Cervical Wound Culture - Final Enterococcus faecalis 06/26/24 08:45 Wound - Cervical Anaerobic Culture - Final No growth in 5 days. 06/26/24 08:45 Tissue - Cervical Gram Stain - Final 06/26/24 08:45 Tissue - Cervical Wound Culture - Final No growth aerobically. 06/26/24 08:45 Tissue - Cervical Anaerobic Culture - Final No growth in 5 days. 06/26/24 08:45 Tissue - Cervical Gram Stain - Final 06/26/24 08:45 Tissue - Cervical Wound Culture - Final Staphylococcus lugdunensis 06/26/24 08:45 Tissue - Cervical Anaerobic Culture - Final No anaerobic bacteria isolated. 06/18/24 18:25 Blood Culture (Wb) - Port Blood Culture - Final No growth in 5 days. 06/19/24 00:05 Wound - Back Gram Stain - Final 06/19/24 00:05 Wound - Back Wound Culture - Final Meth. resistant Staph. aureus Gram positive cesar 06/19/24 00:05 Wound - Back Skin and Soft Tissue MRSA/MSSA (PCR - Final Meth. resistant Staph. aureus 06/18/24 18:25 Urine, Clean Catch Urine Culture - Final Enterococcus faecalis 06/18/24 18:25 Mucosa - Nose SARS-CoV-2, Influenza & RSV (PCR) - Final Physical Exam Narrative Upper thoracic/lower cervical spine with VAC in place, holding suction. Const oriented x3 and no apparent distress Resp normal respiratory effort Resp Narrative: Declined IS today Cardio regular rate Extremity Extremity Narrative: No change in size of legs/swelling. SCDs on and activated. Assessment & Plan Assessment/Plan (1) Open wound of tissue overlying spine: QUALIFIERS: Encounter type: initial encounter Laterality: u nspecified laterality Qualified Code(s): S21.209A - Unspecified open wound of unspecified back wall of thorax without penetration into thoracic cavity, initial encounter PLAN: PLAN: Plan for OR again tomorrow, 04 July 2024, with Dr. Menchaca for flap coverage (Cultures from OR VAC change/debridement on 30 Jun 2024 without growth thus far, wound is clean) NPO at midnight Agree with continued VANC per ID Hold anticoagulation tonight for surgery tomorrow (otherwise OK) Appreciate recs from hem/onc (holding Revlimid) Charges/Coding Procedures Integumentary [id number]: [id number] Global Visit
[2024-07-03] MEDS: Sodium Hypochlorite (Dakin's) 0.125% Wound Irrigation IRRIGATION (10:47)
--- NOTE | 2024-07-03 10:57 | WOUNDNOTE ---
Assisted patient back to bed from the bathroom. wound VAC canister changed and Dakins bottle changed at this time. wound VAC dressing to back with good seal noted. pt scheduled for flap surgery tomorrow with Dr Olivera.
--- NOTE | 2024-07-03 13:40 | CASEMGMT ---
LYNETTE faxed a copy of the IV antibiotic script to Jose. LYNETTE to continue to follow for wound care instructions to assist in determining if [facility] and home health can manage patient's care. Jaclyn Jacob CANE STRIPPERNara HAIDER
--- NOTE | 2024-07-03 14:03 | PCM.PN.ID ---
Physical Exam Narrative OR tomorrow, feeling ok, no n/v/d, no fever Const alert and no apparent distress General Appearance: cooperative Resp normal air movement and clear to auscultation bilaterally Cardio regular rate and regular rhythm GI soft to palpation, non-tender and non-distended Skin no rashes or lesions noted ID ID: Route of nutrition/ use of supplements: [] Nutritional Intake: [] IV Site: [] Humphries Catheter: [] Assessment & Plan Assessment/Plan (1) Open wound of tissue overlying spine: QUALIFIERS: Encounter type: initial encounter Laterality: unspecified laterality Qualified Code(s): S21.209A - Unspecified open wound of unspecified back wall of thorax without penetration into thoracic cavity, initial encounter PLAN: wound cx with MRSA and GPR (MRSA pcr positive), seen by plastic surgery and spine surgery, OR 06/26/24 for I&D down to hardware. On vanc. ucx with small growth enterococcus. Surg cx 06/26 with S lugdunensus and S. epi. Tentative plan at discharge will be 6 weeks iv vanc dosed through port, stop date 08/12/24 with weekly labs. Will follow (2) Paraplegia:
[2024-07-03 15:00] VITALS: BP 126/58; PULSE 59; RESP 16; TEMP 36.7; O2SAT 98
--- NOTE | 2024-07-03 16:00 | CASEMGMT ---
Gabbi from [facility] called LYNETTE. Gabbi had received the script for IV antibiotics and sent it to [facility]. Per corporate patient cannot return to [facility] on the IV antibiotics as originally thought. LYNETTE met with patient and his sister Fabiola. Fabiola stated she received a call from Gabbi at [facility] and patient cannot return with the IV antibiotics. LYNETTE confirmed this. SW provided patient and Fabiola with a list of care home facility providers including quality and resource use data and consistent with patient?s preferred geographic region, medical needs, and insurance network were provided from [facility]. LYNETTE did explain to them that there is a possibility that some of the facilities may not allow patient to go to Dr Sanders's office and get his monthly shots due to cost. Fabiola asked about TCU and Rehab at [facility]. LYNETTE told her SW will check. LYNETTE did ask Estelita about patient. She will review for TCU, not Rehab. Patient's cannot leave for any appts while on Rehab. Patient would not be able to get monthly injections while on TCU. LYNETTE will notify patient and his sister. Jaclyn Jacob LACTATION SPECIALIST MELIZA
[2024-07-03] MEDS: Vancomycin HCl 1,250 MG in 0.9% Normal Saline (250mL Bag) 250 ML 167 MG IV (17:06)
--- NOTE | 2024-07-03 18:44 | PN.HOSP_ITS ---
Reason for Visit Reason for Visit: Diagnoses Paraplegia, unspecified (06/18/24) Unspecified open wound of unspecified back wall of thorax without penetration into thoracic cavity, initial encounter (06/18/24) Radiation sickness, unspecified, initial encounter (06/18/24) Radiation sickness, unspecified, sequela (06/18/24) Infection following a procedure, unspecified, initial encounter (06/18/24) Subjective Subjective Patient having some stomach bloating and loose stools with the stool softeners, has some left lower extremity swelling that is chronic and unchanged from usual. No other new or acute complaints Objective Data Objective Data Vital Signs: Vital Signs Temp Pulse Resp BP Pulse Ox O2 Del Method O2 Flow Rate 98.0 F 59 L 16 126/58 H 98 Room Air 2 07/03/24 15:00 07/03/24 15:00 07/03/24 15:00 07/03/24 15:00 07/03/24 15:00 07/03/24 15:00 06/29/24 11:14 Oxygen Flow Rate (L/min) 2 Oxygen Delivery Method Room Air Weight: 83.2 kg Body Mass Index (BMI) 30.5 Intake & Output: Intake and Output for Last 24 Hours 07/01/24 07/02/24 07/03/24 23:59 23:59 23:59 Intake Total 395 / 395 1775 / 1775 1200 / 1200 Output Total 3600 / 3600 2700 / 3450 3950 / 3950 Balance -3205 / -3205 -925 / -1675 -2750 / -2750 Lab / Micro Data 07/03/24 05:25 07/03/24 05:25 Labs: Laboratory Results - last 24 hr 07/03/24 05:25: WBC 5.4, RBC 3.44 L, Hgb 9.9 L, Hct 31.7 L, MCV 92.2, MCH 28.8, MCHC 31.2 L, RDW Std Deviation 54.4 H, RDW Coeff of Hattie 16.2 H, Plt Count 238, MPV 10.1, Immature Gran % (Auto) 0.600, Neut % (Auto) 69.0, Lymph % (Auto) 9.9 L , [place] % (Auto) 13.8 H, Eos % (Auto) 5.6 H, Baso % (Auto) 1.1 H, Absolute Neuts (auto) 3.7, Absolute Lymphs (auto) 0.53 L, Nucleated RBC % 0, Sodium 136, Potassium 4.0, Chloride 100, Carbon Dioxide 30.0, Anion Gap 5, BUN 36 H, C reatinine 1.38 H, Estim Creat Clear Calc 52.27, Est GFR (MDRD) Af Amer 66, Est GFR (MDRD) Non-Af 55 L, BUN/Creatinine Ratio 26.1 H, Glucose 102, Calcium 9.6 Micro: Microbiology 06/29/24 10:20 Wound Abcess - Aerobic & Anaerobic Swabs Gram Stain - Final 06/29/24 10:20 Wound Abcess - Aerobic & Anaerobic Swabs Wound Culture - Final No growth aerobically. 06/29/24 10:20 Wound Abcess - Aerobic & Anaerobic Swabs Anaerobic Culture - Preliminary No growth in 48 hours. 06/26/24 08:45 Bone - Back Gram Stain - Final 06/26/24 08:45 Bone - Back Wound Culture - Final No growth aerobically. 06/26/24 08:45 Bone - Back Anaerobic Culture - Final No growth in 5 days. 06/26/24 08:45 Wound - Cervical Gram Stain - Final 06/26/24 08:45 Wound - Cervical Wound Culture - Final Staphylococcus lugdunensis Staphylococcus epidermidis 06/26/24 08:45 Wound - Cervical Anaerobic Culture - Final No growth in 5 days. 06/26/24 08:45 Wound - Cervical Gram Stain - Final 06/26/24 08:45 Wound - Cervical Wound Culture - Final Enterococcus faecalis 06/26/24 08:45 Wound - Cervical Anaerobic Culture - Final No growth in 5 days. 06/26/24 08:45 Tissue - Cervical Gram Stain - Final 06/26/24 08:45 Tissue - Cervical Wound Culture - Final No growth aerobically. 06/26/24 08:45 Tissue - Cervical Anaerobic Culture - Final No growth in 5 days. 06/26/24 08:45 Tissue - Cervical Gram Stain - Final 06/26/24 08:45 Tissue - Cervical Wound Culture - Final Staphylococcus lugdunensis 06/26/24 08:45 Tissue - Cervical Anaerobic Culture - Final No anaerobic bacteria isolated. 06/18/24 18:25 Blood Culture (Wb) - Port Blood Culture - Final No growth in 5 days. 06/19/24 00:05 Wound - Back Gram Stain - Final 06/19/24 00:05 Wound - Back Wound Culture - Final Meth. resistant Staph. aureus Gram positive cesar 06/19/24 00:05 Wound - Back Skin and Soft Tissue MRSA/MSSA (PCR - Final Meth. resistant Staph. aureus 06/18/24 18:25 Urine, Clean Catch Urine Culture - Final Enterococcus faecalis 06/18/24 18:25 Mucosa - Nose SARS-CoV-2, Influenza & RSV (PCR) - Final Physical Exam Narrative General: Alert,no apparent distress HEENT: Atraumatic, normocephalic Eyes: Anicteric, normal conjunctiva, extraocular movements grossly intact Neck: Supple Respiratory: Clear to auscultation bilaterally, normal respiratory effort Cardiovascular: Regular rate GI: Soft, little bit distended but nontender without rebound, guarding, rigidity Extremities: 1+ left lower extremity edema which patient reports is chronic Musculoskeletal: Moving all extremities Neuro: No overt focal neurological deficits Skin: No new rashes appreciated Psych: Cooperative Assessment & Plan Assessment/Plan (1) Open wound of tissue overlying spine: QUALIFIERS: Encounter type: initial encounter Laterality: u nspecified laterality Qualified Code(s): S21.209A - Unspecified open wound of unspecified back wall of thorax without penetration into thoracic cavity, initial encounter PLAN: Plan #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 Underwent Posterior cervical thoracic irrigation, debridement, wound exploration; Posterior cervical thoracic hardware exploration; Posterior cervical thoracic bone debridement on 06/26/2024. Plan is for patient to undergo intraoperative VAC change on 06/29/[address] Tijerina and Dr. Keene. ID on board managing antibiotic therapy ? 06/29/2024atient scheduled to undergo undergo intraoperative VAC change on 06/29/[address] Olivera and Dr. Mantilla ?06/30/2024 patient underwent posterior cervical thoracic irrigation, debridement, wound exploration, Posterior cervical thoracic hardware exploration, Posterior cervical thoracic bone debridement on 06/29/2024 ?07/01/2024; wound cultures came back positive for small growth of Enterococcus surgical cultures from 06/26/2024 grew staph lugdunensus and S. epi. ID discontinued Unasyn plan is for patient to be discharged home when ready with 6 weeks of IV vancomycin through his port ? 07/02/2024; remains on broad-spectrum antibiotics -07/03: ID following, patient on vancomycin and will need to be for 6 weeks. Patient to go back to the OR tomorrow with Dr. Menchaca for flap coverage. N.p.o. at midnight. N.p.o. order entered #Multiple myeloma and lower extremity paresis ? Patient is followed by Dr. Perez patient previously treated with thoracic decompression in October 2022, radiation therapy in December 2022 to T1-2 8. Patient did receive daratumumab Revlimid starting February 2023 (initially 25 mg then reduced to 15 Mg 3 weeks on 1 week off) and dexamethasone. [place] Holiday from Revlimid March 2024 -07/03: Patient walks with walker at baseline, PT/OT, will need outpatient follow-up #Hypothyroidism ? Patient is on levothyroxine home dose continued -07/03: Continue Synthroid, check TSH in a.m. #Previous history of VTE ? Patient is on apixaban; Held in anticipation of surgical intervention started on enoxaparin ? 07/02/2024 patient was started on apixaban with plans to hold 24 hours prior to his next intervention planned on 07/04/2024 -07/03: Presently apixaban is held for surgery tomorrow, resume apixaban when safe to do so #DVT ppx: SCDs, resume Eliquis when able Akua Rodríguez MD Time spent in the patient's overall evaluation,decision-making process, review of diagnostic data, adjustment of management, discussion with other providers, nursing nursing and ancillary staff involved in patient's care documentation, 36 Minutes Charges/Coding Visit Charges Inpatient E&M: 08249 Subs Hosp L2
[2024-07-03 22:00] VITALS: BP 119/58; PULSE 55; RESP 18; TEMP 36.3; O2SAT 97
[2024-07-03] MEDS: MELATONIN 3 MG TABLET 6 MG PO (22:21)
[2024-07-03 22:47] VITALS: BP 119/58; PULSE 55
[2024-07-04] VITALS (15 sets, daily range): BP systolic 108–141; BP diastolic 53–72; PULSE 52–74; RESP 12–18; TEMP 36–36.7; O2SAT 94–100; BMI 30.5; BMI 30.4
--- NOTE | 2024-07-04 05:55 | EKG12_ITS ---
Test Reason : PRE OP Blood Pressure : / mmHG Vent. Rate : 051 BPM Atrial Rate : 051 BPM P-R Int : 140 ms QRS Dur : 084 ms QT Int : 428 ms P-R-T Axes : 028 -24 -07 degrees QTc Int : 394 ms Sinus bradycardia with Premature atrial complexes Otherwise normal ECG When compared with ECG of 18-JUN-2024 18:34, Premature atrial complexes are now Present Vent. rate has decreased BY 32 BPM Confirmed by HERBERT DEE, VIKAS ([id number]), editorial director SHANTEL AGUILERA ([id number]) on 07/05/2024 6:10:36 AM Referred By: Confirmed By:VIKAS GODINEZ MD
[2024-07-04 06:02] LABS: Absolute Lymphocyte Count 0.49 X10^3/uL (0.83-4.51); Absolute Neutrophil Count 2.9 X10^3/uL (2.0-7.7); Basophil# 0.05 X10^3/uL; Basophil% 1.2 % (0-1); Eosinophil# 0.26 X10^3/uL; Hematocrit 32.8 % (40-54); Hemoglobin 10.4 g/dL (13.0-16.5); Lymphocyte # 0.49 X10^3/ul (0.83-4.51); Lymphocyte % 11.4 % (19-41); Mean Corp Hgb Conc 31.7 g/dL (32-36); Mean Corpuscular Volume 91.4 fL (80-94); Mean Platelet Vol. 10.2 fl (6.2-12.0); Monocyte# 0.56 X10^3/uL; NRBC Flagged by Analyzer 0 % (0-5); Neutrophil # 2.92 X10^3/uL (2.7-7.7); Neutrophil % 67.9 % (47-70); POSITIVE DIFFERENTIAL YES; Platelet Count 229 K/mm3 (150-450); RBC Distribution Width CV 15.9 % (11.6-14.6); RBC Distribution Width SD 53.7 fl (35.1-43.9); Red Blood Count 3.59 M/mm3 (4.6-6.2); White Blood Count 4.3 K/mm3 (4.4-11.0)
[2024-07-04 06:12] LABS: International Normalized Ratio 1.2
[2024-07-04 06:13] LABS: Partial Thromboplast Time 34.2 Seconds (24.1-36.2)
[2024-07-04 06:31] LABS: Anion Gap 6 (5-15); BUN 37 mg/dL (7-18); BUN/Creat Ratio 27.2 RATIO (10-20); Calcium,Total 9.5 mg/dL (8.5-10.1); Chloride 102 mmol/L (98-107); Creatinine, Serum 1.36 mg/dL (0.70-1.30); EST Glomerular Filtration Rate 56 mL/min (>60); Est Glom Filt Rate - Afr Amer 67 mL/min (>60); Estimated Creatinine Clearance 52.98 ml/min; Glucose 98 mg/dL (74-106); Sodium Level 137 mmol/L (136-145)
[2024-07-04] MEDS: Menthol/Lanolin/Calamine/Znox 113 GM Tube 1 APPLIC TOPICAL ×2 (06:38→22:06)
[2024-07-04] MEDS: Gabapentin 100 MG Capsule PO ×2 (06:38→22:07)
[2024-07-04] MEDS: Levothyroxine 100 MCG Tablet PO (06:40)
--- NOTE | 2024-07-04 07:31 | PCM.PN.HOSP ---
Reason for Visit Reason for Visit: Diagnoses Paraplegia, unspecified (06/18/24) Unspecified open wound of unspecified back wall of thorax without penetration into thoracic cavity, initial encounter (06/18/24) Radiation sickness, unspecified, initial encounter (06/18/24) Radiation sickness, unspecified, sequela (06/18/24) Infection following a procedure, unspecified, initial encounter (06/18/24) Subjective Subjective Patient without further diarrhea but still some bloating, no other new or acute complaints Objective Data Objective Data Vital Signs: Vital Signs Temp Pulse Resp BP Pulse Ox O2 Del Method O2 Flow Rate 97.8 F 52 L 16 113/53 L 96 Room Air 2 07/04/24 03:50 07/04/24 03:50 07/04/24 03:50 07/04/24 03:50 07/04/24 03:50 07/04/24 03:50 06/29/24 11:14 Oxygen Flow Rate (L/min) 2 Oxygen Delivery Method Room Air Weight: 83 kg Body Mass Index (BMI) 30.4 Intake & Output: Intake and Output for Last 24 Hours 07/02/24 07/03/24 07/04/24 23:59 23:59 23:59 Intake Total 1775 / 1775 2225 / 2225 0 / 0 Output Total 2700 / 3450 5600 / 5600 1200 / 1200 Balance -925 / -1675 -3375 / -3375 -1200 / -1200 Lab / Micro Data 07/04/24 05:10 07/04/24 05:10 Labs: Laboratory Results - last 24 hr 07/04/24 05:10: WBC 4.3 L, RBC 3.59 L, Hgb 10.4 L, Hct 32.8 L, MCV 91.4, MCH 29.0, MCHC 31.7 L, RDW Std Deviation 53.7 H, RDW Coeff of Hattie 15.9 H, Plt Count 229, MPV 10.2, Immature Gran % (Auto) 0.500, Neut % (Auto) 67.9, Lymph % (Auto) 11.4 L, [place] % (Auto) 13.0 H, Eos % (Auto) 6.0 H, Baso % (Auto) 1.2 H, Absolute Neuts (auto) 2.9, Absolute Lymphs (auto) 0.49 L, Nucleated RBC % 0, PT 15.0 H, INR 1.2, APTT 34.2, Sodium 137, Potassium 4.0, Chloride 102, Carbon Dioxide 29.0, Anion Gap 6, BUN 37 H, Creatinine 1.36 H, Estim Creat Clear Calc 52.98, Est GFR (MDRD) Af Amer 67, Est GFR (MDRD) Non-Af 56 L, BUN/Creatinine Ratio 27.2 H, Glucose 98, Calcium 9.5, TSH 6.430 H Micro: Microbiology 06/29/24 10:20 Wound Abcess - Aerobic & Anaerobic Swabs Gram Stain - Final 06/29/24 10:20 Wound Abcess - Aerobic & Anaerobic Swabs Wound Culture - Final No growth aerobically. 06/29/24 10:20 Wound Abcess - Aerobic & Anaerobic Swabs Anaerobic Culture - Preliminary No growth in 48 hours. 06/26/24 08:45 Bone - Back Gram Stain - Final 06/26/24 08:45 Bone - Back Wound Culture - Final No growth aerobically. 06/26/24 08:45 Bone - Back Anaerobic Culture - Final No growth in 5 days. 06/26/24 08:45 Wound - Cervical Gram Stain - Final 06/26/24 08:45 Wound - Cervical Wound Culture - Final Staphylococcus lugdunensis Staphylococcus epidermidis 06/26/24 08:45 Wound - Cervical Anaerobic Culture - Final No growth in 5 days. 06/26/24 08:45 Wound - Cervical Gram Stain - Final 06/26/24 08:45 Wound - Cervical Wound Culture - Final Enterococcus faecalis 06/26/24 08:45 Wound - Cervical Anaerobic Culture - Final No growth in 5 days. 06/26/24 08:45 Tissue - Cervical Gram Stain - Final 06/26/24 08:45 Tissue - Cervical Wound Culture - Final No growth aerobically. 06/26/24 08:45 Tissue - Cervical Anaerobic Culture - Final No growth in 5 days. 06/26/24 08:45 Tissue - Cervical Gram Stain - Final 06/26/24 08:45 Tissue - Cervical Wound Culture - Final Staphylococcus lugdunensis 06/26/24 08:45 Tissue - Cervical Anaerobic Culture - Final No anaerobic bacteria isolated. 06/18/24 18:25 Blood Culture (Wb) - Port Blood Culture - Final No growth in 5 days. 06/19/24 00:05 Wound - Back Gram Stain - Final 06/19/24 00:05 Wound - Back Wound Culture - Final Meth. resistant Staph. aureus Gram positive cesar 06/19/24 00:05 Wound - Back Skin and Soft Tissue MRSA/MSSA (PCR - Final Meth. resistant Staph. aureus 06/18/24 18:25 Urine, Clean Catch Urine Culture - Final Enterococcus faecalis 06/18/24 18:25 Mucosa - Nose SARS-CoV-2, Influenza & RSV (PCR) - Final Physical Exam Narrative General: Alert,no apparent distress HEENT: Atraumatic, normocephalic Eyes: Anicteric, normal conjunctiva, extraocular movements grossly intact Neck: Supple Respiratory: Clear to auscultation bilaterally, normal respiratory effort Cardiovascular: Regular rate GI: Soft, less distended today, no rebound, guarding, rigidity Extremities: 1+ left lower extremity edema which patient reports is chronic Musculoskeletal: Moving all extremities Neuro: No overt focal neurological deficits Skin: No new rashes appreciated Psych: Cooperative Assessment & Plan Assessment/Plan (1) Open wound of tissue overlying spine: QUALIFIERS: Encounter type: initial encounter Laterality: unspecified laterality Qualified Code(s): S21.209A - Unspecified open wound of unspecified back wall of thorax without penetration into thoracic cavity, initial encounter PLAN: Plan #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 Underwent Posterior cervical thoracic irrigation, debridement, wound exploration; Posterior cervical thoracic hardware exploration; Posterior cervical thoracic bone debridement on 06/26/2024. Plan is for patient to undergo intraoperative VAC change on 06/29/[address]ijerina and Dr. Keene. ID on board managing antibiotic therapy ? 06/29/2024atient scheduled to undergo undergo intraoperative VAC change on 06/29/[address]a and Dr[address] Mantilla ?06/30/2024 patient underwent posterior cervical thoracic irrigation, debridement, wound exploration, Posterior cervical thoracic hardware exploration, Posterior cervical thoracic bone debridement on 06/29/2024 ?07/01/2024; wound cultures came back positive for small growth of Enterococcus surgical cultures from 06/26/2024 grew staph lugdunensus and S. epi. ID discontinued Unasyn plan is for patient to be discharged home when ready with 6 weeks of IV vancomycin through his port ? 07/02/2024; remains on broad-spectrum antibiotics -07/03: ID following, patient on vancomycin and will need to be for 6 weeks. Patient to go back to the OR tomorrow with Dr. Menchaca for flap coverage. N.p.o. at midnight. N.p.o. order entered -07/04: Patient back to the OR today, has been n.p.o. at midnight, continuing vancomycin #Multiple myeloma and lower extremity paresis ? Patient is followed by Dr. Perez patient previously treated with thoracic decompression in October 2022, radiation therapy in December 2022 to T1-2 8. Patient did receive daratumumab Revlimid starting February 2023 (initially 25 mg then reduced to 15 Mg 3 weeks on 1 week off) and dexamethasone. [place] Holiday from Revlimid March 2024 -07/03: Patient walks with walker at baseline, PT/OT, will need outpatient follow-up -07/04: Continue supportive care, blood cell count 4.3, hemoglobin 10.4 today, platelet count within normal limits #Hypothyroidism ? Patient is on levothyroxine home dose continued -07/03: Continue Synthroid, check TSH in a.m. -07/04: TSH 6.430, will need repeated on outpatient basis #Previous history of VTE ? Patient is on apixaban; Held in anticipation of surgical intervention started on enoxaparin ? 07/02/2024 patient was started on apixaban with plans to hold 24 hours prior to his next intervention planned on 07/04/2024 -07/03: Presently apixaban is held for surgery tomorrow, resume apixaban when safe to do so -07/04: Holding apixaban today, hopefully will be able to resume tomorrow, pending surgery decision #DVT ppx: SCDs, resume Eliquis when able Akua Rodríguez MD Time spent in the patient's overall evaluation,decision-making process, review of diagnostic data, adjustment of management, discussion with other providers, nursing nursing and ancillary staff involved in patient's care documentation, 35 Minutes Charges/Coding Visit Charges Inpatient E&M: 89288 Subs Hosp L2
--- NOTE | 2024-07-04 07:46 | ANES.CONF2 ---
Anesthesia: Confirm Documents Multiple Procedures on Account (3) Confirmed Documents: Yes
[2024-07-04] MEDS: Pantoprazole Sodium 20 MG Tablet PO (08:35)
[2024-07-04] MEDS: amLODIPine 10 MG Tablet PO (08:35)
[2024-07-04] MEDS: Metoprolol Tartrate 50 MG Tablet PO ×2 (08:35→22:07)
--- NOTE | 2024-07-04 10:15 | PN.SURG_ITS ---
Subjective Subjective Patient resting in bed. He states pain is well controlled. He is NPO for surgery this afternoon for flap coverage. Objective Data Objective Data Vital Signs: Vital Signs Temp Pulse Resp BP Pulse Ox O2 Del Method O2 Flow Rate 97.8 F 55 L 16 116/56 L 96 Room Air 2 07/04/24 03:50 07/04/24 08:35 07/04/24 03:50 07/04/24 08:35 07/04/24 03:50 07/04/24 08:03 06/29/24 11:14 Oxygen Flow Rate (L/min) 2 Oxygen Delivery Method Room Air Weight: 182 lb 15.739 oz Body Mass Index (BMI) 30.4 Intake & Output: Intake and Output for Last 24 Hours 07/02/24 07/03/24 07/04/24 23:59 23:59 23:59 Intake Total 1775 / 1775 2225 / 2225 0 / 0 Output Total 2700 / 3450 5600 / 5600 1200 / 1200 Balance -925 / -1675 -3375 / -3375 -1200 / -1200 Lab / Micro Data Attestation: I reviewed the patient's lab results. 07/04/24 05:10 07/04/24 05:10 Labs: Laboratory Results - last 24 hr 07/04/24 05:10: WBC 4.3 L, RBC 3.59 L, Hgb 10.4 L, Hct 32.8 L, MCV 91.4, MCH 29.0, MCHC 31.7 L, RDW Std Deviation 53.7 H, RDW Coeff of Hattie 15.9 H, Plt Count 229, MPV 10.2, Immature Gran % (Auto) 0.500, Neut % (Auto) 67.9, Lymph % (Auto) 11.4 L, [place] % (Auto) 13.0 H, Eos % (Auto) 6.0 H, Baso % (Auto) 1.2 H, Absolute Neuts (auto) 2.9, Absolute Lymphs (auto) 0.49 L, Nucleated RBC % 0, PT 15.0 H, INR 1.2, APTT 34.2, Sodium 137, Potassium 4.0, Chloride 102, Carbon Dioxide 29.0, Anion Gap 6, BUN 37 H, Creatinine 1.36 H, Estim Creat Clear Calc 52.98, Est GFR (MDRD) Af Amer 67, Est GFR (MDRD) Non-Af 56 L, BUN/Creatinine Ratio 27.2 H, Glucose 98, Calcium 9.5, TSH 6.430 H, Blood Type AB POSITIVE, Antibody Screen NEGATIVE Micro: Microbiology 06/29/24 10:20 Wound Abcess - Aerobic & Anaerobic Swabs Gram Stain - Final 06/29/24 10:20 Wound Abcess - Aerobic & Anaerobic Swabs Wound Culture - Final No growth aerobically. 06/29/24 10:20 Wound Abcess - Aerobic & Anaerobic Swabs Anaerobic Culture - Preliminary No growth in 48 hours. 06/26/24 08:45 Bone - Back Gram Stain - Final 06/26/24 08:45 Bone - Back Wound Culture - Final No growth aerobically. 06/26/24 08:45 Bone - Back Anaerobic Culture - Final No growth in 5 days. 06/26/24 08:45 Wound - Cervical Gram Stain - Final 06/26/24 08:45 Wound - Cervical Wound Culture - Final Staphylococcus lugdunensis Staphylococcus epidermidis 06/26/24 08:45 Wound - Cervical Anaerobic Culture - Final No growth in 5 days. 06/26/24 08:45 Wound - Cervical Gram Stain - Final 06/26/24 08:45 Wound - Cervical Wound Culture - Final Enterococcus faecalis 06/26/24 08:45 Wound - Cervical Anaerobic Culture - Final No growth in 5 days. 06/26/24 08:45 Tissue - Cervical Gram Stain - Final 06/26/24 08:45 Tissue - Cervical Wound Culture - Final No growth aerobically. 06/26/24 08:45 Tissue - Cervical Anaerobic Culture - Final No growth in 5 days. 06/26/24 08:45 Tissue - Cervical Gram Stain - Final 06/26/24 08:45 Tissue - Cervical Wound Culture - Final Staphylococcus lugdunensis 06/26/24 08:45 Tissue - Cervical Anaerobic Culture - Final No anaerobic bacteria isolated. 06/18/24 18:25 Blood Culture (Wb) - Port Blood Culture - Final No growth in 5 days. 06/19/24 00:05 Wound - Back Gram Stain - Final 06/19/24 00:05 Wound - Back Wound Culture - Final Meth. resistant Staph. aureus Gram positive cesar 06/19/24 00:05 Wound - Back Skin and Soft Tissue MRSA/MSSA (PCR - Final Meth. resistant Staph. aureus 06/18/24 18:25 Urine, Clean Catch Urine Culture - Final Enterococcus faecalis 06/18/24 18:25 Mucosa - Nose SARS-CoV-2, Influenza & RSV (PCR) - Final Physical Exam Const alert and oriented x3 General Appearance: cooperative and comfortable HEENT normocephalic Head and Scalp: atraumatic Eyes General Eye: normal appearance of both eyes Resp normal respiratory effort Effort and Inspection: able to speak in complete sentences Cardio regular rate and regular rhythm Extremity normal to inspection Extremity Narrative: +2 edema bilateral feet and ankles. No calf pain in dorsiflexion bilaterally. Skin Wound Narrative: Irrigating wound VAC over cervical/thoracic spine is holding suction well. No blood in the VAC. Neuro oriented x3 Psych cooperative Appearance: grossly normal Assessment & Plan Assessment/Plan (1) Open wound of tissue overlying spine: QUALIFIERS: Encounter type: initial encounter Laterality: u nspecified laterality Qualified Code(s): S21.209A - Unspecified open wound of unspecified back wall of thorax without penetration into thoracic cavity, initial encounter PLAN: Plan Postop OR 06/26/24 and 06/29/24. He is NPO for his planned surgery this afternoon for flap coverage. Wound culture 06/19/24 positive for MRSA and gram positive cesar. 06/26/24 preliminary operative tissue cultures positive for Staphylococcus lugdunensis, Staphylococcus epidermidis, and Enterococcus faecalis. ID following. Currently on Vancomycin. Plan is he will have a total of 6 weeks IV Vanc. 06/29/24 operative cultures negative for growth thus far, anaerobic pending. Continue Vera flow wound VAC with Dakin's. Patient states he has been walking in leger. Encouraged use incentive spirometer. Continue nutritional supplementation with Ariel BID (when not NPO). Plan is muscle flap reconstruction this afternoon with Dr. Olivera. Charges/Coding Procedures Integumentary [id number]: [id number] Global Visit
[2024-07-04] MEDS: Sodium Hypochlorite (Dakin's) 0.125% Wound Irrigation IRRIGATION (10:41)
--- NOTE | 2024-07-04 10:46 | CASEMGMT ---
LYNETTE called Valarie with [facility] and notified her that patient will be going to a [facility] facility at discharge. Valarie asked that LYNETTE notify her which facility patient will be going to when LYNETTE knows. Jaclyn HAIDER
--- NOTE | 2024-07-04 12:05 | WOUNDNOTE ---
Pt is scheduled for surgery later today.
[2024-07-04] MEDS: Lactated Ringers 1,000 ML 15 ML IV (12:15)
--- NOTE | 2024-07-04 12:56 | PCM.PRE.AN2 ---
ASA Classification* ASA Classification ASA Classification: 3 Assessment & Plan Anesthesia* Anesthesia Assessment Anesthesia Assessment: Discussed sedation and/or anesthesia options, risks, benefits, and alternatives with patient/parents/legal guardian/POA. Questions invited. The patient/parents/legal guardian/POA seems to understand and agrees to proceed with anesthesia plan. Reviewed the physical assessment, medical history, allergy history and patient home medications list prior to surgery/procedure/anesthetic and documented any changes. Performed airway and anesthesia risk assessments. Anesthesia Type Anesthesia Type: General (Consider GlideScope.) History Source History Obtained from:: Patient and Chart Anesthesia Focused Assessment* Temperature: 97.6 F Pulse Rate: 55 Blood Pressure: 116/56 Respiratory Rate: 16 Pulse Ox: 95 Oxygen Delivery Method: Room Air Airway Assessment Mouth opens: 2 cm Mallampati Score: IV Teeth Condition: Missing (Some missing teeth breasts are tight.) Neck Range of motion (ROM): Limited ROM (Significantly decreased extension.) Focused Labs Anesthesia Preop lab: CBC WBC 4.3 K/mm3 (4.4-11.0) L 07/04/24 05:10 RBC 3.59 M/mm3 (4.6-6.2) L 07/04/24 05:10 Hgb 10.4 g/dL (13.0-16.5) L 07/04/24 05:10 Hct 32.8 % (40-54) L 07/04/24 05:10 Plt Count 229 K/mm3 (150-450) 07/04/24 05:10 CHEMISTRY Potassium 4.0 mmol/L (3.5-5.1) 07/04/24 05:10 Sodium 137 mmol/L (136-145) 07/04/24 05:10 Magnesium 1.6 mg/dL (1.6-2.6) 06/29/24 05:23 Phosphorus 3.6 mg/dL (2.5-4.9) 06/29/24 05:23 BUN 37 mg/dL (7-18) H 07/04/24 05:10 Creatinine 1.36 mg/dL (0.70-1.30) H 07/04/24 05:10 Glucose 98 mg/dL (74-106) 07/04/24 05:10 TSH 6.430 uIU/mL (0.358-3.740) H 07/04/24 05:10 COAG PT 15.0 SECONDS (11.7-14.9) H 07/04/24 05:10 Pre-Assessment Diagnosis/Proposed Procedure Planned Operative Procedure(s): I&D abscess Back, Wound Vac application Anesthesia History Anesthesia History - 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 When Was Last Pacemaker Check QUESTION #4 FULL TEXT: You/Your Family Experience fever (hyperthermia) with Anesthesia Last Oral Intake Last Oral intake: Last Oral Intake NPO since 00:00 07/04/24 00:20 Meds taken in AM with sips of No 07/04/24 00:20 water? Meds patient instructed to take am of surgery PONV PONV - oral surgery technician: PONV - oral surgery technician Female HX of Motion Sickness HX of N/V After Surgery Non-Smoker Duration of Surgery greater than 60 minutes Number of Risk Factors PONV Score Height & Weight Height & Weight: Anesthesia: Height & Weight Height 5 ft 5 in 07/04/24 00:20 Weight: 83 kg 07/04/24 04:41 Body Mass Index (BMI) 30.4 07/04/24 04:41 Respiratory Assessment Respiratory Assessment - oral surgery technician: Respiratory Tract Infection Hx - oral surgery technician Hx Respiratory Tract Infection No 07/04/24 00:20 STOP Sleep Apnea STOP Sleep Apnea - oral surgery technician: STOP Sleep Apnea - oral surgery technician Hx Hypertension Yes 06/19/24 16:29 Hx Sleep Apnea No 06/29/24 10:45 CPAP BIPAP Do you snore loudly (louder No 06/18/24 23:11 than talking or can be heard Do you often feel tired/ No 06/18/24 23:11 fatigued/ sleepy during daytime? Has anyone observed you stop No 06/18/24 23:11 breathing during sleep? STOP Results Negative 06/29/24 10:36 QUESTION #5 FULL TEXT : Do you snore loudly (louder than talking or can be heard through closed doors)? 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 Specify any problems Hx of Preganancy in last 3 N/A 06/18/24 23:11 Months Nurse Filling Out Transfusion MMAST 06/18/24 23:11 & Questions: Date: 06/18/24 06/18/24 23:11 Time: :24 06/18/24 23:11 Patient unable to answer at this time (ie. confused, unrespo /Reproduction History /Reproductive History - oral surgery technician: /Reproductive Hx- oral surgery technician Hx Now No 07/04/24 00:20 Gestational Age (in weeks): EDC: Hx Hx Para Hx Section SAB No 07/04/24 00:20 Active Medications Active Medications: Current Medications Generic Name Dose Route Start Last Admin Trade Name Freq PRN Reason Stop Dose Admin Acetaminophen 650 mg 06/18/24 23:00 06/21/24 10:04 Acetaminophen 325 Mg Tablet PO 650 mg Q4H PRN PRN Administration Fever, pain 1-10 Acyclovir 400 mg 06/18/24 23:15 07/04/24 10:37 Acyclovir 200 Mg Capsule PO Not Given Q12 DAVID Al Hydrox/Mg Hydrox/Simethicone 30 ml 06/18/24 23:00 Mag /Aluminum/Simeth Wch Udc 30 Ml Oral.Susp PO Q6H PRN PRN Gastric Burning Albuterol Sulfate 2.5 mg 06/18/24 23:00 Albuterol 2.5 Mg/3 Ml Vial.Neb. INHALATION Q2H PRN PRN Dyspnea, wheezing Amlodipine Besylate 10 mg 06/19/24 10:00 07/04/24 08:35 Amlodipine 10 Mg Tablet PO 10 mg DAILY DAVID Administration Protocol Ascorbic Acid 1,000 mg 06/18/24 23:00 07/04/24 10:37 Ascorbic Acid 500 Mg Tablet PO Not Given BID DAVID Baclofen 5 mg 06/18/24 23:00 07/04/24 08:28 Baclofen 10 Mg Tablet PO Not Given BID DAVID Bisacodyl 10 mg 06/19/24 00:09 Bisacodyl 10 Mg Suppository RC Q4H PRN PRN constipation Calamine/Phenol 1 applic 06/22/24 22:00 07/04/24 06:38 Menthol/Lanolin/Calamine/Znox 113 Gm Tube TOPICAL 1 applic TID DAVID Administration Protocol Sodium Hypochlorite 473 ml/ 0 ml 06/26/24 10:00 07/04/24 10:41 Sodium Chloride 473 ml IRRIGATION 1 ml UD DAVID Administration Ferrous Sulfate 325 mg 06/19/24 08:00 07/04/24 08:28 Ferrous Sulfate 325 Mg Tablet PO Not Given DAILYCM DAVID Gabapentin 100 mg 06/18/24 23:00 07/04/24 06:38 Gabapentin 100 Mg Capsule PO 100 mg TID DAVID Administration Guaifenesin 20 ml 06/18/24 23:00 Guaifenesin 10 Ml Udc (200mg/10ml) PO Q4H PRN PRN COUGH Heparin Sodium (Beef Lung) 50 units 06/18/24 23:30 Heparin Pf Lock 10 Units/Ml 50 Units/5 Ml Syringe IV UD PRN Port-a-Cath (VAD)Heparin Flush Hydralazine HCl 10 mg 06/18/24 23:00 Hydralazine 20 Mg/Ml Vial IV Q4H PRN PRN SBP > 160 Protocol Vancomycin IV-PHARMACY TO DOSE 500 mls @ 250 mls/hr 06/18/24 23:00 1 each/ Sodium Chloride IV X1 PRN Rx to Dose Protocol Sodium Chloride 250 mls @ 15 mls/hr 06/28/24 07:33 06/30/24 08:33 IV Infused .[id number] PRN Infusion Additional IVPB Infusion Sodium Chloride 250 mls @ 15 mls/hr 06/28/24 07:33 IV .[id number] PRN Saline Flush Vancomycin HCl 1,250 mg/ 275 mls @ 167 mls/hr 06/30/24 18:00 07/03/24 18:45 Sodium Chloride IV Infused Q24H DAVID Infusion Lactated Ringer's 1,000 mls @ 15 mls/hr 07/04/24 12:15 07/04/24 12:15 IV 15 mls/hr .Q48H DAVID Administration Levothyroxine Sodium 100 mcg 06/19/24 06:00 07/04/24 06:40 Levothyroxine 100 Mcg Tablet PO 100 mcg DAILY@0600 DAVID Administration Melatonin 6 mg 06/18/24 23:00 07/03/24 22:21 Melatonin 3 Mg Tablet PO 6 mg HS DAVID Administration Metoprolol Tartrate 50 mg 06/19/24 10:00 07/04/24 08:35 Metoprolol Tartrate 50 Mg Tablet PO 50 mg BID DAVID Administration Protocol Ondansetron HCl 4 mg 06/18/24 23:00 Ondansetron 4 Mg/2 Ml Vial IV Q8H PRN PRN NAUSEA/VOMITING Pantoprazole Sodium 20 mg 06/19/24 10:00 07/04/24 08:35 Pantoprazole Sodium 20 Mg Tablet PO 20 mg DAILY DAVID Administration Polyethylene Glycol 17 gm 06/19/24 10:00 07/04/24 08:28 Polyethylene Glycol 3350 17 Gm Packet PO Not Given DAILY DAVID Sodium Chloride 10 - 40 ml 06/18/24 23:30 07/02/24 18:33 0.9 % Nacl (Sterile) Posiflush 10 Ml IV 10 ml UD PRN Administration Port access or dressing change Sodium Chloride 10 - 40 ml 06/18/24 23:30 06/29/24 12:00 0.9% Saline Lock 10 Ml Syringe IV 10 ml UD PRN Administration Port-a-Cath (VAD) Flush Vancomycin Protocol 1 lab 07/05/24 15:30 Vancomycin Trough/Random Due MC 07/05/24 19:30 DAILY DAVID PFSH Medical History Secondary malignant neoplasm of bone marrow Personal history of Methicillin resistant Staphylococcus aureus infection 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 History of radiation therapy Non-healing surgical wound Paraplegia Anemia Multiple myeloma DVT (deep venous thrombosis) Back pain Hypothyroidism Hypertension Hypercholesteremia Home Medications ?Medication ?Instructions ?Recorded ?Last Taken ?Type acetaminophen 500 mg capsule 500 mg PO Q6H PRN fever or pain 07/08/23 Unknown History acyclovir 400 mg tablet 400 mg PO Q12H 07/08/23 Unknown History amlodipine 10 mg tablet 10 mg PO DAILY bp 07/08/23 Unknown History ascorbic acid (vitamin C) 1,000 mg 1 g PO BID supplement 07/08/23 Unknown History tablet cholecalciferol (vitamin D3) 125 125 mcg PO DAILY supplement 07/08/23 Unknown History mcg (5,000 unit) capsule diphenhydramine HCl 25 mg capsule 25 mg PO ONCE PRN itching 07/08/23 Unknown History (Benadryl) gabapentin 100 mg capsule 100 mg PO TID back 07/08/23 Unknown History magnesium oxide 250 mg PO .noon bowel health 07/08/23 Unknown History melatonin 3 mg capsule 6 mg PO HS sleep 07/08/23 Unknown History metoprolol tartrate 50 mg tablet 50 mg PO BID 07/08/23 Unknown History omeprazole 20 mg tablet,delayed 20 mg PO DAILY gerd 07/08/23 Unknown History release sennosides 8.6 mg-docusate sodium 1 tab-cap PO BID constipation 07/08/23 Unknown History 50 mg tablet (Senna Plus) simethicone 80 mg chewable tablet 80 mg PO TID PRN abdominal 07/08/23 Unknown History (Gas Relief (simethicone)) distention Disability Placard #1 ea 07/12/23 Unknown Rx ferrous sulfate 325 mg (65 mg 325 mg PO DAILY supplement 07/12/23 Unknown History iron) tablet apixaban 5 mg tablet (Eliquis) 5 mg PO BID vte prophylaxis 07/17/23 Unknown History baclofen 5 mg tablet 5 mg PO BID back pain 08/12/23 Unknown History benzonatate 200 mg capsule 200 mg PO TID PRN cough 08/12/23 Unknown History calcium carbonate 600 mg PO BID supplement 08/12/23 Unknown History levothyroxine 100 mcg tablet 100 mcg PO DAILY thyroid 08/12/23 Unknown History (Levo-T) magnesium hydroxide 400 mg/5 mL 30 ml PO DAILY PRN constipation 08/12/23 Unknown History oral suspension (Milk of Magnesia) polyethylene glycol 3350 17 17 g PO DAILY constipation 08/12/23 Unknown History gram/dose oral powder (ClearLax) lenalidomide 15 mg capsule 15 mg .Route .COMPLEX #21 CAPSULES 04/04/24 Unknown Rx (Revlimid) arginine 7 gram-glutamine 7 1 ea PO DAILY wound 06/18/24 Unknown History gram-calcium HMB 1.5 gram oral powder pack (Ariel) bisacodyl 10 mg rectal suppository 10 mg [place] DAILY PRN PRN constipation 06/18/24 Unknown History (Dulcolax (bisacodyl)) sulfamethoxazole 800 1 tab PO Q12H antibiotic 06/18/24 Unknown History mg-trimethoprim 160 mg tablet dexamethasone 4 mg tablet 20 mg PO Q28D myeloma 06/19/24 Unknown History vancomycin 1.25 gram intravenous 1.25 g IV Q24H 37 days 07/03/24 Unknown Rx solution Allergy/AdvReac Type Severity Reaction Status Date / Time No Known Allergies Allergy Verified 06/18/24 17:37 Family History Mother Follicular lymphoma Father Hypertension Heart disease Brother Hypertension Other Cancer Surgical History History of back surgery History of tooth extraction H/O laminectomy History of cholecystectomy Social History housing: assisted living facility Smoking Status: Never smoker alcohol intake: former substance use type: does not use Review of Systems (Anesthesia) ROS Narrative System reviewed and no additional complaints, except as documented.
--- NOTE | 2024-07-04 13:06 | PCM.HP.STD ---
HPI - General General Date of Admission: 06/18/24 Chief Complaint: Dyspnea HPI Narrative RACHEAL BURLESON, is a 68 M who presents today for back wound closure. Current Encounter (DATE OF SURGERY H&P UPDATE): I saw and examined the patient this morning in pre-operative holding. We discussed risks and benefits of today's surgery and they would like to proceed. NO CHANGE in health history since last seen and evaluated. Ready to proceed with surgery. 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 History of radiation therapy Non-healing surgical wound Paraplegia Anemia Multiple myeloma DVT (deep venous thrombosis) Back pain Hypothyroidism Hypertension Hypercholesteremia Home Medications ?Medication ?Instructions ?Recorded ?Last Taken ?Type acetaminophen 500 mg capsule 500 mg PO Q6H PRN fever or pain 07/08/23 Unknown History acyclovir 400 mg tablet 400 mg PO Q12H 07/08/23 Unknown History amlodipine 10 mg tablet 10 mg PO DAILY bp 07/08/23 Unknown History ascorbic acid (vitamin C) 1,000 mg 1 g PO BID supplement 07/08/23 Unknown History tablet cholecalciferol (vitamin D3) 125 125 mcg PO DAILY supplement 07/08/23 Unknown History mcg (5,000 unit) capsule diphenhydramine HCl 25 mg capsule 25 mg PO ONCE PRN itching 07/08/23 Unknown History (Benadryl) gabapentin 100 mg capsule 100 mg PO TID back 07/08/23 Unknown History magnesium oxide 250 mg PO .noon bowel health 07/08/23 Unknown History melatonin 3 mg capsule 6 mg PO HS sleep 07/08/23 Unknown History metoprolol tartrate 50 mg tablet 50 mg PO BID 07/08/23 Unknown History omeprazole 20 mg tablet,delayed 20 mg PO DAILY gerd 07/08/23 Unknown History release sennosides 8.6 mg-docusate sodium 1 tab-cap PO BID constipation 07/08/23 Unknown History 50 mg tablet (Senna Plus) simethicone 80 mg chewable tablet 80 mg PO TID PRN abdominal 07/08/23 Unknown History (Gas Relief (simethicone)) distention Disability Placard #1 ea 10/16/23 Unknown Rx ferrous sulfate 325 mg (65 mg 325 mg PO DAILY supplement 07/12/23 Unknown History iron) tablet apixaban 5 mg tablet (Eliquis) 5 mg PO BID vte prophylaxis 07/17/23 Unknown History baclofen 5 mg tablet 5 mg PO BID back pain 08/12/23 Unknown History benzonatate 200 mg capsule 200 mg PO TID PRN cough 08/12/23 Unknown History calcium carbonate 600 mg PO BID supplement 08/12/23 Unknown History levothyroxine 100 mcg tablet 100 mcg PO DAILY thyroid 08/12/23 Unknown History (Levo-T) magnesium hydroxide 400 mg/5 mL 30 ml PO DAILY PRN constipation 08/12/23 Unknown History oral suspension (Milk of Magnesia) polyethylene glycol 3350 17 17 g PO DAILY constipation 08/12/23 Unknown History gram/dose oral powder (ClearLax) lenalidomide 15 mg capsule 15 mg .Route .COMPLEX #21 CAPSULES 04/04/24 Unknown Rx (Revlimid) arginine 7 gram-glutamine 7 1 ea PO DAILY wound 06/18/24 Unknown History gram-calcium HMB 1.5 gram oral powder pack (Ariel) bisacodyl 10 mg rectal suppository 10 mg [place] DAILY PRN PRN constipation 06/18/24 Unknown History (Dulcolax (bisacodyl)) sulfamethoxazole 800 1 tab PO Q12H antibiotic 06/18/24 Unknown History mg-trimethoprim 160 mg tablet dexamethasone 4 mg tablet 20 mg PO Q28D myeloma 06/19/24 Unknown History vancomycin 1.25 gram intravenous 1.25 g IV Q24H 37 days 07/03/24 Unknown Rx solution Allergy/AdvReac Type Severity Reaction Status Date / Time No Known Allergies Allergy Verified 06/18/24 17:37 Family History Mother Follicular lymphoma Father Hypertension Heart disease Brother Hypertension Other Cancer Surgical History History of back surgery History of tooth extraction H/O laminectomy History of cholecystectomy Social History housing: assisted living facility Smoking Status: Never smoker alcohol intake: former substance use type: does not use Vital Signs Vital Signs Vital Signs: 07/03/24 15:00 07/03/24 22:00 07/03/24 22:00 Temperature 98.0 F 97.4 F L Temperature Source Oral Temporal Pulse Rate 59 L 55 L Pulse Strength Normal (2+) Respiratory Rate 16 18 Respiratory Effort Respiratory Depth Respiratory Pattern Blood Pressure 126/58 H 119/58 L Blood Pressure Mean 80 78 Blood Pressure Source Monitor Monitor Blood Pressure Position Semi-Fowlers Blood Pressure Location Left Arm Pulse Ox 98 97 Oxygen Delivery Method Room Air Room Air Oxygen Flow Rate (L/min) 07/03/24 22:00 07/03/24 22:47 07/04/24 03:50 Temperature 97.8 F Temperature Source Temporal Pulse Rate 55 L 52 L Pulse Strength Respiratory Rate 16 Respiratory Effort Normal Non-Labored Respiratory Depth Normal Respiratory Pattern Normal Blood Pressure 119/58 L 113/53 L Blood Pressure Mean 73 Blood Pressure Source Monitor Blood Pressure Position Semi-Fowlers Blood Pressure Location Left Arm Pulse Ox 96 Oxygen Delivery Method Room Air Room Air Oxygen Flow Rate (L/min) 07/04/24 08:03 07/04/24 08:35 07/04/24 09:43 Temperature 97.6 F L Temperature Source Temporal Pulse Rate 55 L 55 L Pulse Strength Respiratory Rate 16 Respiratory Effort Normal Non-Labored Respiratory Depth Normal Respiratory Pattern Normal Blood Pressure 116/56 L 116/56 L Blood Pressure Mean 76 Blood Pressure Source Monitor Blood Pressure Position Semi-Fowlers Blood Pressure Location Left Arm Pulse Ox 95 Oxygen Delivery Method Room Air Room Air Oxygen Flow Rate (L/min) 07/04/24 13:03 Temperature 97.6 F L Temperature Source Pulse Rate 55 L Pulse Strength Respiratory Rate 16 Respiratory Effort Respiratory Depth Respiratory Pattern Blood Pressure 116/56 L Blood Pressure Mean Blood Pressure Source Blood Pressure Position Blood Pressure Location Pulse Ox 95 Oxygen Delivery Method Room Air Oxygen Flow Rate (L/min) 2 Weight Weight: 182 lb 15.739 oz Body Mass Index (BMI) 30.4 Physical Exam Const alert and oriented x3 General Appearance: cooperative and comfortable HEENT normocephalic Head and Scalp: atraumatic Eyes General Eye: normal appearance of both eyes Resp normal respiratory effort Effort and Inspection: able to speak in complete sentences Cardio regular rate and regular rhythm Extremity normal to inspection Extremity Narrative: +2 edema bilateral feet and ankles. No calf pain in dorsiflexion bilaterally. Skin Wound Narrative: Irrigating wound VAC over cervical/thoracic spine is holding suction well. No blood in the VAC. Neuro oriented x3 Psych cooperative Appearance: grossly normal Results Lab / Micro Data 07/04/24 05:10 07/04/24 05:10 Labs: Laboratory Results - last 24 hr 07/04/24 05:10: WBC 4.3 L, RBC 3.59 L, Hgb 10.4 L, Hct 32.8 L, MCV 91.4, MCH 29.0, MCHC 31.7 L, RDW Std Deviation 53.7 H, RDW Coeff of Hattie 15.9 H, Plt Count 229, MPV 10.2, Immature Gran % (Auto) 0.500, Neut % (Auto) 67.9, Lymph % (Auto) 11.4 L, Faulk % (Auto) 13.0 H, Eos % (Auto) 6.0 H, Baso % (Auto) 1.2 H, Absolute Neuts (auto) 2.9, Absolute Lymphs (auto) 0.49 L, Nucleated RBC % 0, PT 15.0 H, INR 1.2, APTT 34.2, Sodium 137, Potassium 4.0, Chloride 102, Carbon Dioxide 29.0, Anion Gap 6, BUN 37 H, Creatinine 1.36 H, Estim Creat Clear Calc 52.98, Est GFR (MDRD) Af Amer 67, Est GFR (MDRD) Non-Af 56 L, BUN/Creatinine Ratio 27.2 H, Glucose 98, Calcium 9.5, TSH 6.430 H, Blood Type AB POSITIVE, Antibody Screen NEGATIVE Assessment & Plan Assessment/Plan (1) Open wound of tissue overlying spine: QUALIFIERS: Encounter type: initial encounter Laterality: unspecified laterality Qualified Code(s): S21.209A - Unspecified open wound of unspecified back wall of thorax without penetration into thoracic cavity, initial encounter PLAN: INTERVAL H&P PLAN, DATE OF SURGERY: We will proceed with surgery today. I talked the patient extensively about the risks of surgery, including bleeding, infection, damage to surrounding structures (nerves/poor function of muscles that turn head and shrug shoulders), surgical site dehiscence and wound formation, need for wound care, need for repeat operations, failure to obtain the desired result, DVT/PE, and the risks of anesthesia including . I also talked to him about positioning restrictions. All of their questions were answered, and they agreed to proceed with surgery.
--- NOTE | 2024-07-04 13:27 | CHAPLAIN ---
Type of Pastoral Visit _x__ Initial Visit ___ Follow-up Visit ___ On-call Visit ___ General Patient Visit ___ Spiritual Assessment ___ Family Conference ___ Bereavement ___ Rapid Response ___ Code Blue ___ Other (describe below) Pastoral Care Referral From _x__ Patient ___ Family ___ Nurse ___ Physician ___ Fleet Technician ___ Data Compiler ___ Other (describe below) Sacrament/Intervention _x__ Active listening ___ Anointing ___ Yarsanism ___ Bereavement ___ Communion ___ Hannah exploration ___ ___ Life review _x__ Prayer ___ Reconciliation ___ Sacrament of Sick ___ Supportive presence ___ Wedding ___ Other (describe below) Pastoral Comments patient gives background story on his health issues and current situation; pt is to have surgery today and welcomes a prayer; pt states that otherwise he is okay today and attempting to handle one day at a time; pt does then admit that it is not easy but again states that he is okay; pt will need to have antibiotic therapy and says the need will be to find a place for IV therapy; pt reveals this as his concern
--- NOTE | 2024-07-04 14:23 | OP.PCM_ITS ---
Report of Operation Date of Procedure: 07/04/24 Pre-Operative Diagnosis: 1. Nonhealing wound status post posterior cervical th oracic fusion Post-Operative Diagnosis: 1. Nonhealing wound status post posterior cervical thoracic fusion Surgery/Procedure Performed:: 1. Posterior cervical thoracic irrigation, debridement, wound exploration 2. Posterior cervical thoracic hardware exploration 3. Posterior cervical thoracic bone debridement Description of Surgical Findings:: The patient is a 68-year-old male who presented with a nonhealing wound status post tumor resection surgery with subsequent posterior cervical thoracic fusion over a year ago at an outside facility. He has undergone 2 irrigation and debridement procedures with application of wound VAC and presents today for flap closure per plastic surgery. The patient has opted for operative intervention understanding the risks to include but not limited to infection, bleeding, damage to nerves arteries and veins, possibility of spinal fluid leak, paralysis, continued pain, need for further surgery, deep vein thrombosis, pulmonary embolism, heart attack, risk of stroke or The patient was seen in the preoperative holding area. The patient's identity and surgery site were confirmed. He was then transferred to the operating suite. He did receive preoperative IV antibiotics. After the appropriate amount of anesthesia was given, the patient was transferred to the operating table in the prone position. All bony prominences were padded accordingly. The posterior cervical thoracic spine was prepped and draped in the standard surgical fashion after removing the wound VAC. Some small areas of necrotic tissue and bone were debrided and the wound and hardware was thoroughly explored. No significant purulent material or fluid collection was encountered. The hardware was explored and found to be stable and in acceptable alignment. The wound was then thoroughly irrigated. Plastic surgery, Dr. Olivera, then proceeded with his portion of the case which included soft tissue debridement and muscle flap closure. See his operative report for this. Surgeon: Armand Menchaca Type of Anesthesia: General Estimated Blood Loss (mL): 50CC Fluids Replaced: 800CC Complications None Admit VTE Documentation VTE Present on Admission: No
[2024-07-04] MEDS: Bupiv/Epi 0.25% 30 ML Vial (15:46)
--- NOTE | 2024-07-04 16:12 | PCM.POST.ANE ---
Anesthesia: Postop Eval I Current Vital Signs Temperature: 97.1 F Pulse Rate: 74 Blood Pressure: 130/70 Respiratory Rate: 16 Pulse Ox: 95 Oxygen Delivery Method: Room Air Assessment Airway patent: Yes Spontaneous unlabored respirations: Yes Mental status: Awake and Calm nausea: No Vomiting: No Anesthesia Complication: No Fluid Hydration Crystalloid volume administer (ml): 800 Total IV fluid infused: 800 Progress Note Anesthesia document: Postop Eval 1 completed: Yes
--- NOTE | 2024-07-04 17:40 | OP.PCM_ITS ---
Operative Report Date of Procedure: 07/04/24 Surgery/Procedure Date: 04 July 2024 Incision/Procedure Start Time: 13:51 Incision Close/Procedure End Time: 15:45 (1 hour 54-minutes) PATIENT: Armand Barron SURGEON: Oren Olivera MD Co-surgeon: Alphonso Menchaca DO (Spine Surgery) PRE-OPERATIVE DIAGNOSIS: Upper thoracic/lower cervical spine wound POST-OPERATIVE DIAGNOSIS: Same PROCEDURE PERFORMED: 1) Left paraspinous muscle flap, advanced over spinal hardware (CPT 95908) 2) Right paraspinous muscle flap, advanced over spinal hardware (CPT 87079) OPERATIVE FINDINGS: * Healthy appearing wound base over spine ready for closure INDICATIONS: Patient is a 68-year-old male with a history of pathologic fracture from multiple myeloma status post lower cervical upper thoracic spinal fusion followed by radiation in the Spring 2022. He has had a good response to chemotherapy, but has had a persistent wound over the spinal hardware. Dr. Menchaca and Abbie took the patient back twice for debridement of the wound, and the initial cultures grew gram-positive organisms that are being treated with vancomycin. The bone cultures were negative. The wound sinus tract was negative for malignancy. The second set of cultures from the second operating room washout were negative. In the interim, the patient has been treated with an irrigating wound VAC with Dakin's irrigation. Presents today for closure of the spinal wound. OPERATIVE DETAILS: Patient was correctly identified in preoperative holding and taken back to the operating room he was administered general anesthesia and flipped in the prone position. Care was taken to pad all bony prominences and protect the face and eyes. The wound VAC was removed. He was prepped and draped in sterile fashion and all proper timeouts were performed. Dr. Menchaca and Abbei began the procedure by performing a debridement (please see Dr. Menchaca' separate operative note for this portion of the procedure). The wound was determined to be clean enough for reconstruction. I therefore began by dissecting with Bovie electrocautery above the paraspinous muscle fascia on the right and left sides of the wound edges exposing the lateral fascia. I then made an incision in the fascia laterally so as to take tension off of the muscles laterally enabling them to rotate and advance into position over the spinal hardware and meet in the midline. Further careful dissection using tenotomy scissors was performed medially and laterally on the paraspinous muscles in order to relieve tension and preserve the blood supply. The muscles were advanced into position medially and sutured together over a 19 Fr Petros drain using [id number] 0-PDS sutures. At this point all the hardware was covered. Attention was then turned to an attempt at advancing the trapezius muscles medially over the wound for a second layer of muscle; however, these muscles were diminutive and retracted (radiation damage/chronic wound) and the edges could not be advanced without significant tension. An attempt by the anesthesia team at position change of the arms was unsuccessful at removing the tension. The very inferior trapezius muscles were sutured together with a figure of eight 0-PDS, but the muscles were otherwise left in place. A 19 divehi Petros drain was placed in this space on top of the paraspinous muscles and beneath the next layer of closure. The overlying subcutaneous tissue then came together without excessive tension, and the Maryann's layer was then closed with 0-PDS figure of eight sutures. We then closed the deep dermis with 2-0 PDS and a running subcuticular 3-0 monocryl was applied on the skin. An incisional wound VAC (with adaptic) was then applied. The patient was awaken and taken to the PACU in stable condition. EBL: 50 cc Anesthesia: general ASA: 3 IVF: 800 cc UOP: 500 cc Transfusions: none Perioperative antibiotics: Vancomycin POST-OPERATIVE PLAN: Patient will return to inpatient floor. Drain care q4 hours, empty and record two drains. Incisional VAC to be removed 10 Jul 2024 for evaluation of closure. No laying on the wound (only laying on sides) so as to prevent pressure (ordered). Continue pressure offloading bed. No extreme shoulder/arm abduction.
[2024-07-04] MEDS: Vancomycin HCl 1,250 MG in 0.9% Normal Saline (250mL Bag) 250 ML 167 MG IV (18:17)
[2024-07-04] MEDS: Baclofen 10 MG Tablet 5 MG PO (22:07)
[2024-07-04] MEDS: Acyclovir 200 MG Capsule 400 MG PO (22:07)
[2024-07-04] MEDS: MELATONIN 3 MG TABLET 6 MG PO (22:07)
[2024-07-04] MEDS: 0.9 % NaCl (Sterile) Posiflush 10 mL IV (22:08)
[2024-07-04] MEDS: Acetaminophen 325 MG Tablet 650 MG PO (22:10)
[2024-07-04] MEDS: Ascorbic Acid 500 MG Tablet 1000 MG PO (22:11)
[2024-07-05] VITALS (7 sets, daily range): BP systolic 99–124; BP diastolic 46–59; PULSE 61–81; RESP 16–18; TEMP 37.2–37.6; O2SAT 92–96; BMI 30.5
[2024-07-05] MEDS: Gabapentin 100 MG Capsule PO ×3 (05:56→22:03)
[2024-07-05] MEDS: Levothyroxine 100 MCG Tablet PO (05:56)
[2024-07-05] MEDS: Menthol/Lanolin/Calamine/Znox 113 GM Tube 1 APPLIC TOPICAL ×3 (05:56→22:02)
--- NOTE | 2024-07-05 06:52 | WOUNDNOTE ---
In to assess the wound VAC dressing and drains with Dr Olivera. Good seal noted at 125mmHg low continuous suction. DARBY drain tubing was stripped at this time. pt resting in bed on his right side. pt on pressure offloading bed as well. pt aware he is to turn side to side and avoid laying on his back at all times. pt used incentive spirometer. will continue to monitor.
[2024-07-05 07:00] LABS: Absolute Lymphocyte Count 0.32 X10^3/uL (0.83-4.51); Absolute Neutrophil Count 6.3 X10^3/uL (2.0-7.7); Basophil# 0.05 X10^3/uL; Basophil% 0.7 % (0-1); Eosinophil# 0.11 X10^3/uL; Eosinophils% 1.5 % (0-5); Hematocrit 33.9 % (40-54); Hemoglobin 10.7 g/dL (13.0-16.5); Lymphocyte # 0.32 X10^3/ul (0.83-4.51); Lymphocyte % 4.2 % (19-41); Mean Corp Hgb Conc 31.6 g/dL (32-36); Mean Corpuscular Hgb 28.6 pg (27.0-32.0); Mean Corpuscular Volume 90.6 fL (80-94); Mean Platelet Vol. 9.6 fl (6.2-12.0); Monocyte# 0.71 X10^3/uL; Monocyte% 9.4 % (0-10); NRBC Flagged by Analyzer 0 % (0-5); Neutrophil # 6.32 X10^3/uL (2.7-7.7); Neutrophil % 83.8 % (47-70); POSITIVE DIFFERENTIAL YES; Platelet Count 218 K/mm3 (150-450); RBC Distribution Width CV 15.8 % (11.6-14.6); RBC Distribution Width SD 52.6 fl (35.1-43.9); Red Blood Count 3.74 M/mm3 (4.6-6.2); White Blood Count 7.5 K/mm3 (4.4-11.0)
[2024-07-05 07:16] LABS: Anion Gap 6 (5-15); BUN 28 mg/dL (7-18); BUN/Creat Ratio 19.2 RATIO (10-20); Calcium,Total 8.8 mg/dL (8.5-10.1); Chloride 101 mmol/L (98-107); Creatinine, Serum 1.46 mg/dL (0.70-1.30); EST Glomerular Filtration Rate 51 mL/min (>60); Est Glom Filt Rate - Afr Amer 62 mL/min (>60); Glucose 109 mg/dL (74-106); Potassium 4.2 mmol/L (3.5-5.1); Sodium Level 135 mmol/L (136-145)
--- NOTE | 2024-07-05 07:21 | PN_ITS ---
Progress Note Post op day 1 having some pain this morning in his upper back, but controlled with PRN pain medication. Trouble sleeping last night. He's been compliant with pressure offloading (has only been lying on his side) and has been compliant with no extreme abduction of shoulders. No ripping/tearing sensations on upper back. Physical Exam Narrative Upper thoracic/lower cervical spine wound with VAC over the incision, holding suction. No excessive tightness of the skin adjacent to the VAC sponge. Drains are SS and strip well. Appropriate output. Const alert and oriented x3 General Appearance: cooperative Orientation / Consciousness: awake, oriented to person, oriented to place and oriented to time HEENT normocephalic Eyes EOMs intact bilaterally Neck full ROM Chest inspection of chest normal Resp normal respiratory effort Resp Narrative: Able to do 1,000 ml on the IS for me this morning (induced some coughing) Cardio regular rate Extremity normal to inspection Extremity Narrative: No excessive lower extremity swelling. SCDs on and activated. Assessment & Plan Assessment/Plan (1) Open wound of tissue overlying spine: QUALIFIERS: Encounter type: initial encounter Laterality: unspecified laterality Qualified Code(s): S21.209A - Unspecified open wound of unspecified back wall of thorax without penetration into thoracic cavity, in itial encounter (2) Radiation adverse effect: QUALIFIERS: Encounter type: sequela Qualified Code(s): T66.XXXS - Radiation sickness, unspecified, sequela PLAN: Plan Post-op day 1 from spinal wound closure. Expected course thus far Continue pressure offloading (only laying on sides, pressure offloading bed should continue). No pressure on the closure. Continue PT, OK to walk with PT with walker, but no extreme/major shoulder abduction (discussed with patient). OK to restart anticoagulation tonight, 05 Jul 2024, when he is >24 hours out from surgery. [facility] will continue to follow. Anticipate VAC removal from incision on 10 Jul 2024 to check the wound. Needs to remain inpatient for pressure offloading, and to check for bleeding (while on anticoagulation) at least until the incisional VAC is removed and the wound is assessed on 10 Jul 2024. Procedures Integumentary [id number]: [id number] Global Visit
[2024-07-05] MEDS: Acetaminophen 325 MG Tablet 650 MG PO (09:13)
[2024-07-05] MEDS: Ascorbic Acid 500 MG Tablet 1000 MG PO ×2 (09:13→22:03)
[2024-07-05] MEDS: Metoprolol Tartrate 50 MG Tablet PO ×2 (09:13→22:04)
[2024-07-05] MEDS: Acyclovir 200 MG Capsule 400 MG PO ×2 (09:13→22:03)
[2024-07-05] MEDS: Pantoprazole Sodium 20 MG Tablet PO (09:13)
[2024-07-05] MEDS: Ferrous Sulfate 325 MG Tablet PO (09:13)
[2024-07-05] MEDS: Baclofen 10 MG Tablet 5 MG PO ×2 (09:14→22:04)
[2024-07-05] MEDS: amLODIPine 10 MG Tablet PO (09:14)
[2024-07-05] MEDS: Polyethylene Glycol 3350 17 GM PACKET PO (09:14)
--- NOTE | 2024-07-05 11:48 | CASEMGMT ---
Social Work- SW called pt sister, Fabiola, who reports [facility] as [facility] even if pt can't receive his monthly shot d/t concerns of lack of staffing and inappropriate wound care at other facilities. Pt sister reports that if pt gets an infection, d/t the gravity of the situation, pt will not survive, so she feels it is imperative to keep pt at the hospital. SW completed referral to TCU. D/t pt staying on the unit for medical treatment until 07/10, TCU will need to review closer to d/c and cannot hold beds. SW will remain available to follow. BRAD Ward
[2024-07-05 18:02] LABS: Vancomycin, Trough Level 16.9 ug/mL (5.0-15.0)
--- NOTE | 2024-07-05 18:10 | PN.HOSP_ITS ---
Reason for Visit Reason for Visit: Diagnoses Paraplegia, unspecified (06/18/24) Unspecified open wound of unspecified back wall of thorax without penetration into thoracic cavity, initial encounter (06/18/24) Radiation sickness, unspecified, initial encounter (06/18/24) Radiation sickness, unspecified, sequela (06/18/24) Infection following a procedure, unspecified, initial encounter (06/18/24) Subjective Subjective Patient having some pain postsurgical intervention, otherwise no new or acute complaints. Sitting up in chair Objective Data Objective Data Vital Signs: Vital Signs Temp Pulse Resp BP Pulse Ox O2 Del Method O2 Flow Rate 99.3 F H 71 17 100/57 L 95 Room Air 2 07/05/24 14:43 07/05/24 14:43 07/05/24 14:43 07/05/24 14:43 07/05/24 14:43 07/05/24 14:43 07/04/24 20:40 Oxygen Flow Rate (L/min) 2 Oxygen Delivery Method Room Air Weight: 83.2 kg Body Mass Index (BMI) 30.5 Intake & Output: Intake and Output for Last 24 Hours 07/03/24 07/04/24 07/05/24 23:59 23:59 23:59 Intake Total 2225 / 2225 495 / 495 680.25 / 680.25 Output Total 5600 / 5600 2550 / 2550 1135 / 1135 Balance -3375 / -3375 -2055 / -2055 -454.75 / -454.75 Lab / Micro Data 07/05/24 06:28 07/05/24 06:28 Labs: Laboratory Results - last 24 hr 07/05/24 06:28: WBC 7.5, RBC 3.74 L, Hgb 10.7 L, Hct 33.9 L, MCV 90.6, MCH 28.6, MCHC 31.6 L, RDW Std Deviation 52.6 H, RDW Coeff of Hattie 15.8 H, Plt Count 218, MPV 9.6, Immature Gran % (Auto) 0.400, Neut % (Auto) 83.8 H, Lymph % (Auto) 4.2 L, Whitley % (Auto) 9.4, Eos % (Auto) 1.5, Baso % (Auto) 0.7, Absolute Neuts (auto) 6.3, Absolute Lymphs (auto) 0.32 L, Nucleated RBC % 0, Sodium 135 L, Potassium 4.2, Chloride 101, Carbon Dioxide 28.0, Anion Gap 6, BUN 28 H, Creatinine 1.46 H , Estim Creat Clear Calc 49.40, Est GFR (MDRD) Af Amer 62, Est GFR (MDRD) Non-Af 51 L, BUN/Creatinine Ratio 19.2, Glucose 109 H, Calcium 8.8 07/05/24 17:34: Vancomycin Trough 16.9 H Micro: Microbiology 06/29/24 10:20 Wound Abcess - Aerobic & Anaerobic Swabs Gram Stain - Final 06/29/24 10:20 Wound Abcess - Aerobic & Anaerobic Swabs Wound Culture - Final No growth aerobically. 06/29/24 10:20 Wound Abcess - Aerobic & Anaerobic Swabs Anaerobic Culture - Final No growth in 5 days. 06/26/24 08:45 Bone - Back Gram Stain - Final 06/26/24 08:45 Bone - Back Wound Culture - Final No growth aerobically. 06/26/24 08:45 Bone - Back Anaerobic Culture - Final No growth in 5 days. 06/26/24 08:45 Wound - Cervical Gram Stain - Final 06/26/24 08:45 Wound - Cervical Wound Culture - Final Staphylococcus lugdunensis Staphylococcus epidermidis 06/26/24 08:45 Wound - Cervical Anaerobic Culture - Final No growth in 5 days. 06/26/24 08:45 Wound - Cervical Gram Stain - Final 06/26/24 08:45 Wound - Cervical Wound Culture - Final Enterococcus faecalis 06/26/24 08:45 Wound - Cervical Anaerobic Culture - Final No growth in 5 days. 06/26/24 08:45 Tissue - Cervical Gram Stain - Final 06/26/24 08:45 Tissue - Cervical Wound Culture - Final No growth aerobically. 06/26/24 08:45 Tissue - Cervical Anaerobic Culture - Final No growth in 5 days. 06/26/24 08:45 Tissue - Cervical Gram Stain - Final 06/26/24 08:45 Tissue - Cervical Wound Culture - Final Staphylococcus lugdunensis 06/26/24 08:45 Tissue - Cervical Anaerobic Culture - Final No anaerobic bacteria isolated. 06/18/24 18:25 Blood Culture (Wb) - Port Blood Culture - Final No growth in 5 days. 06/19/24 00:05 Wound - Back Gram Stain - Final 06/19/24 00:05 Wound - Back Wound Culture - Final Meth. resistant Staph. aureus Gram positive cesar 06/19/24 00:05 Wound - Back Skin and Soft Tissue MRSA/MSSA (PCR - Final Meth. resistant Staph. aureus 06/18/24 18:25 Urine, Clean Catch Urine Culture - Final Enterococcus faecalis 06/18/24 18:25 Mucosa - Nose SARS-CoV-2, Influenza & RSV (PCR) - Final Physical Exam Narrative General: Alert,no apparent distress HEENT: Atraumatic, normocephalic Eyes: Anicteric, normal conjunctiva, extraocular movements grossly intact Neck: Supple Respiratory: Clear to auscultation bilaterally, normal respiratory effort Cardiovascular: Regular rate GI: Soft, less distended today, no rebound, guarding, rigidity Extremities: 1+ left lower extremity edema which patient reports is chronic Musculoskeletal: Moving all extremities Neuro: No overt focal neurological deficits Skin: No new rashes appreciated Psych: Cooperative Assessment & Plan Assessment/Plan (1) Open wound of tissue overlying spine: QUALIFIERS: Encounter type: initial encounter Laterality: u nspecified laterality Qualified Code(s): S21.209A - Unspecified open wound of unspecified back wall of thorax without penetration into thoracic cavity, initial encounter PLAN: Plan #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 Underwent Posterior cervical thoracic irrigation, debridement, wound exploration; Posterior cervical thoracic hardware exploration; Posterior cervical thoracic bone debridement on 06/26/2024. Plan is for patient to undergo intraoperative VAC change on 06/29/[address] Tijerina and Dr. Keene. ID on board managing antibiotic therapy ? 06/29/2024atient scheduled to undergo undergo intraoperative VAC change on 06/29/[address] Olivera and Dr. Mantilla ?06/30/2024 patient underwent posterior cervical thoracic irrigation, debridement, wound exploration, Posterior cervical thoracic hardware exploration, Posterior cervical thoracic bone debridement on 06/29/2024 ?07/01/2024; wound cultures came back positive for small growth of Enterococcus surgical cultures from 06/26/2024 grew staph lugdunensus and S. epi. ID discontinued Unasyn plan is for patient to be discharged home when ready with 6 weeks of IV vancomycin through his port ? 07/02/2024; remains on broad-spectrum antibiotics -07/03: ID following, patient on vancomycin and will need to be for 6 weeks. Patient to go back to the OR tomorrow with Dr. Menchaca for flap coverage. N.p.o. at midnight. N.p.o. order entered -07/04: Patient back to the OR today, has been n.p.o. at midnight, continuing vancomycin -07/05: Patient status post spinal wound closure on 07/04. Discussed with plastic surgery, continue pressure offloading, plan is to continue current management through the weekend and reevaluate wound on Wednesday to determine any further intervention versus pursuing placement #Multiple myeloma and lower extremity paresis ? Patient is followed by Dr. Perez patient previously treated with thoracic decompression in October 2022, radiation therapy in December 2022 to T1-2 8. Patient did receive daratumumab Revlimid starting February 2023 (initially 25 mg then reduced to 15 Mg 3 weeks on 1 week off) and dexamethasone. [place] Holiday from Revlimid March 2024 -07/03: Patient walks with walker at baseline, PT/OT, will need outpatient follow-up -07/04: Continue supportive care, blood cell count 4.3, hemoglobin 10.4 today, platelet count within normal limits -07/05: Continue working with PT. Plastic surgery recommended no extreme/major shoulder abduction but okay to walk with walker #Previous history of VTE ? Patient is on apixaban; Held in anticipation of surgical intervention started on enoxaparin ? 07/02/2024 patient was started on apixaban with plans to hold 24 hours prior to his next intervention planned on 07/04/2024 -07/03: Presently apixaban is held for surgery tomorrow, resume apixaban when safe to do so -07/04: Holding apixaban today, hopefully will be able to resume tomorrow, pending surgery decision -07/05: Resuming apixaban tonight Chronic medical problem: #Hypothyroidism ? Patient is on levothyroxine home dose continued -07/03: Continue Synthroid, check TSH in a.m. -07/04: TSH 6.430, will need repeated on outpatient basis #DVT ppx: SCDs, resume Eliquis when able Akua Rodríguez, MD Time spent in the patient's overall evaluation,decision-making process, review of diagnostic data, adjustment of management, discussion with other providers, nursing nursing and ancillary staff involved in patient's care documentation, 35 Minutes Charges/Coding Visit Charges Inpatient E&M: 11363 Subs Hosp L2
[2024-07-05] MEDS: 0.9% Saline Lock 10 ML Syringe IV (19:02)
[2024-07-05] MEDS: Vancomycin HCl 1,250 MG in 0.9% Normal Saline (250mL Bag) 250 ML 167 MG IV (19:02)
--- NOTE | 2024-07-05 19:38 | PCM.RX.CS ---
Consult Antibiotic Management Pharmacy has been consulted to manage selected antibiotic: Vancomycin Type of Intervention Type of Consult: Follow-up Labs Labs: Sodium 135 mmol/L (136-145) L 07/05/24 06:28 Potassium 4.2 mmol/L (3.5-5.1) 07/05/24 06:28 Chloride 101 mmol/L (98-107) 07/05/24 06:28 Carbon Dioxide 28.0 mmol/L (21.0-32.0) 07/05/24 06:28 Anion Gap 6 (5-15) 07/05/24 06:28 BUN 28 mg/dL (7-18) H 07/05/24 06:28 Creatinine 1.46 mg/dL (0.70-1.30) H 07/05/24 06:28 Est GFR (MDRD) Af Amer 62 mL/min (>60) 07/05/24 06:28 Est GFR (MDRD) Non-Af 51 mL/min (>60) L 07/05/24 06:28 BUN/Creatinine Ratio 19.2 RATIO (10-20) 07/05/24 06:28 Glucose 109 mg/dL (74-106) H 07/05/24 06:28 Vancomycin Trough 16.9 ug/mL (5.0-15.0) H 07/05/24 17:34 Random Vancomycin 15.3 ug/mL (0.0-15.0) H 06/30/24 15:52 Microbiology Microbiology: Microbiology 06/29/24 10:20 Wound Abcess - Aerobic & Anaerobic Swabs Gram Stain - Final 06/29/24 10:20 Wound Abcess - Aerobic & Anaerobic Swabs Wound Culture - Final No growth aerobically. 06/29/24 10:20 Wound Abcess - Aerobic & Anaerobic Swabs Anaerobic Culture - Final No growth in 5 days. 06/26/24 08:45 Bone - Back Gram Stain - Final 06/26/24 08:45 Bone - Back Wound Culture - Final No growth aerobically. 06/26/24 08:45 Bone - Back Anaerobic Culture - Final No growth in 5 days. 06/26/24 08:45 Wound - Cervical Gram Stain - Final 06/26/24 08:45 Wound - Cervical Wound Culture - Final Staphylococcus lugdunensis Staphylococcus epidermidis 06/26/24 08:45 Wound - Cervical Anaerobic Culture - Final No growth in 5 days. 06/26/24 08:45 Wound - Cervical Gram Stain - Final 06/26/24 08:45 Wound - Cervical Wound Culture - Final Enterococcus faecalis 06/26/24 08:45 Wound - Cervical Anaerobic Culture - Final No growth in 5 days. 06/26/24 08:45 Tissue - Cervical Gram Stain - Final 06/26/24 08:45 Tissue - Cervical Wound Culture - Final No growth aerobically. 06/26/24 08:45 Tissue - Cervical Anaerobic Culture - Final No growth in 5 days. 06/26/24 08:45 Tissue - Cervical Gram Stain - Final 06/26/24 08:45 Tissue - Cervical Wound Culture - Final Staphylococcus lugdunensis 06/26/24 08:45 Tissue - Cervical Anaerobic Culture - Final No anaerobic bacteria isolated. 06/18/24 18:25 Blood Culture (Wb) - Port Blood Culture - Final No growth in 5 days. 06/19/24 00:05 Wound - Back Gram Stain - Final 06/19/24 00:05 Wound - Back Wound Culture - Final Meth. resistant Staph. aureus Gram positive cesar 06/19/24 00:05 Wound - Back Skin and Soft Tissue MRSA/MSSA (PCR - Final Meth. resistant Staph. aureus 06/18/24 18:25 Urine, Clean Catch Urine Culture - Final Enterococcus faecalis 06/18/24 18:25 Mucosa - Nose SARS-CoV-2, Influenza & RSV (PCR) - Final Goal Trough Goal Trough: 15-20 mcg/mL Pharmacy Plan for Drug Dosing Pharmacy Plan for Drug Dosing: VANCOMYCIN LEVEL RECEIVED Current Vancomycin Dose: 1250mg IV Q24hr Number of Doses Received: several Vancomycin Level: 16.9 Hours Since Last Dose: 23.5hr Renal Function: 1.46 Renal Function Trend: stable Lab/Micro: pending Vancomycin Plan/Comments: Patient had a trough drawn which resulted in a value of 16.9 (goal 15-20). Patient's trough is within goal, will continue vancomycin 1250mg IV Q24hr. The patient's trough has been stable, will recheck a trough in 4 days to assess dosing at that time. Pending Level: 07/09/24 @6085 Pharmacy Service will continue to monitor and adjust dosing as required.
[2024-07-05] MEDS: MELATONIN 3 MG TABLET 6 MG PO (22:03)
[2024-07-05] MEDS: APIXABAN 5 MG TABLET PO (22:03)
[2024-07-06 02:24] VITALS: BP 93/45; PULSE 63; RESP 16; TEMP 37.1; O2SAT 93
[2024-07-06] MEDS: Gabapentin 100 MG Capsule PO ×3 (05:16→21:32)
[2024-07-06] MEDS: Menthol/Lanolin/Calamine/Znox 113 GM Tube 1 APPLIC TOPICAL ×3 (05:16→21:56)
[2024-07-06] MEDS: Levothyroxine 100 MCG Tablet PO (05:16)
[2024-07-06 06:00] VITALS: BMI 26.6
[2024-07-06 06:26] LABS: Absolute Lymphocyte Count 0.67 X10^3/uL (0.83-4.51); Absolute Neutrophil Count 4.7 X10^3/uL (2.0-7.7); Basophil# 0.04 X10^3/uL; Basophil% 0.6 % (0-1); Eosinophil# 0.13 X10^3/uL; Hematocrit 30.9 % (40-54); Hemoglobin 9.8 g/dL (13.0-16.5); Lymphocyte # 0.67 X10^3/ul (0.83-4.51); Lymphocyte % 10.2 % (19-41); Mean Corp Hgb Conc 31.7 g/dL (32-36); Mean Corpuscular Hgb 28.7 pg (27.0-32.0); Mean Corpuscular Volume 90.6 fL (80-94); Mean Platelet Vol. 9.6 fl (6.2-12.0); Monocyte# 0.97 X10^3/uL; Monocyte% 14.8 % (0-10); NRBC Flagged by Analyzer 0 % (0-5); Neutrophil # 4.71 X10^3/uL (2.7-7.7); Neutrophil % 71.9 % (47-70); Platelet Count 177 K/mm3 (150-450); RBC Distribution Width CV 15.9 % (11.6-14.6); RBC Distribution Width SD 52.6 fl (35.1-43.9); Red Blood Count 3.41 M/mm3 (4.6-6.2); White Blood Count 6.6 K/mm3 (4.4-11.0)
[2024-07-06 07:07] LABS: Anion Gap 7 (5-15); BUN 36 mg/dL (7-18); BUN/Creat Ratio 23.5 RATIO (10-20); Calcium,Total 8.7 mg/dL (8.5-10.1); Chloride 101 mmol/L (98-107); Creatinine, Serum 1.53 mg/dL (0.70-1.30); EST Glomerular Filtration Rate 49 mL/min (>60); Est Glom Filt Rate - Afr Amer 59 mL/min (>60); Estimated Creatinine Clearance 41.31 ml/min; Glucose 103 mg/dL (74-106); Potassium 3.9 mmol/L (3.5-5.1); Sodium Level 135 mmol/L (136-145)
--- NOTE | 2024-07-06 07:22 | WOUNDNOTE ---
In to see patient this am with Dr Olivera. wound VAC dressing intact with good seal noted at 125mmHg low continuous suction. DARBY srains were stripped. small amount of serosanguineous drainage noted in the bulbs. patient denies much pain at this time. will continue to monitor. plan is for wound VAC dressing to remain in place until Wednesday and then wound will be re-evaluated. pt denies further needs at this time.
--- NOTE | 2024-07-06 07:32 | PN.SURG_ITS ---
Subjective Subjective Doing well today. Pain improved since I saw him yesterday. Wound VAC over incision is holding suction, no issues with it today. He is pressure offloading. Endorses good drain care from nursing staff. Objective Data Objective Data Vital Signs: Vital Signs Temp Pulse Resp BP Pulse Ox O2 Del Method O2 Flow Rate 98.7 F 63 16 93/45 L 93 Room Air 2 07/06/24 02:24 07/06/24 02:24 07/06/24 02:24 07/06/24 02:24 07/06/24 02:24 07/06/24 02:24 07/04/24 20:40 Oxygen Flow Rate (L/min) 2 Oxygen Delivery Method Room Air Weight: 159 lb 13.362 oz Body Mass Index (BMI) 26.6 Intake & Output: Intake and Output for Last 24 Hours 07/04/24 07/05/24 07/06/24 23:59 23:59 23:59 Intake Total 495 / 495 955.25 / 1155.25 300 / 300 Output Total 2550 / 2550 1520 / 2220 1140 / 1140 Balance -2055 / -2055 -564.75 / -1064.75 -840 / -840 Lab / Micro Data 07/06/24 06:08 07/06/24 06:08 Labs: Laboratory Results - last 24 hr 07/05/24 17:34: Vancomycin Trough 16.9 H 07/06/24 06:08: WBC 6.6, RBC 3.41 L, Hgb 9.8 L, Hct 30.9 L, MCV 90.6, MCH 28.7, MCHC 31.7 L, RDW Std Deviation 52.6 H, RDW Coeff of Hattie 15.9 H, Plt Count 177, MPV 9.6, Immature Gran % (Auto) 0.500, Neut % (Auto) 71.9 H, Lymph % (Auto) 10.2 L, [place] % (Auto) 14.8 H, Eos % (Auto) 2.0, Baso % (Auto) 0.6, Absolute Neuts (auto) 4.7, Absolute Lymphs (auto) 0.67 L, Nucleated RBC % 0, Sodium 135 L, Potassium 3.9, Chloride 101, Carbon Dioxide 27.0, Anion Gap 7, BUN 36 H, C reatinine 1.53 H, Estim Creat Clear Calc 41.31, Est GFR (MDRD) Af Amer 59 L, Est GFR (MDRD) Non-Af 49 L, BUN/Creatinine Ratio 23.5 H, Glucose 103, Calcium 8.7 Micro: Microbiology 06/29/24 10:20 Wound Abcess - Aerobic & Anaerobic Swabs Gram Stain - Final 06/29/24 10:20 Wound Abcess - Aerobic & Anaerobic Swabs Wound Culture - Final No growth aerobically. 06/29/24 10:20 Wound Abcess - Aerobic & Anaerobic Swabs Anaerobic Culture - Final No growth in 5 days. 06/26/24 08:45 Bone - Back Gram Stain - Final 06/26/24 08:45 Bone - Back Wound Culture - Final No growth aerobically. 06/26/24 08:45 Bone - Back Anaerobic Culture - Final No growth in 5 days. 06/26/24 08:45 Wound - Cervical Gram Stain - Final 06/26/24 08:45 Wound - Cervical Wound Culture - Final Staphylococcus lugdunensis Staphylococcus epidermidis 06/26/24 08:45 Wound - Cervical Anaerobic Culture - Final No growth in 5 days. 06/26/24 08:45 Wound - Cervical Gram Stain - Final 06/26/24 08:45 Wound - Cervical Wound Culture - Final Enterococcus faecalis 06/26/24 08:45 Wound - Cervical Anaerobic Culture - Final No growth in 5 days. 06/26/24 08:45 Tissue - Cervical Gram Stain - Final 06/26/24 08:45 Tissue - Cervical Wound Culture - Final No growth aerobically. 06/26/24 08:45 Tissue - Cervical Anaerobic Culture - Final No growth in 5 days. 06/26/24 08:45 Tissue - Cervical Gram Stain - Final 06/26/24 08:45 Tissue - Cervical Wound Culture - Final Staphylococcus lugdunensis 06/26/24 08:45 Tissue - Cervical Anaerobic Culture - Final No anaerobic bacteria isolated. 06/18/24 18:25 Blood Culture (Wb) - Port Blood Culture - Final No growth in 5 days. 06/19/24 00:05 Wound - Back Gram Stain - Final 06/19/24 00:05 Wound - Back Wound Culture - Final Meth. resistant Staph. aureus Gram positive cesar 06/19/24 00:05 Wound - Back Skin and Soft Tissue MRSA/MSSA (PCR - Final Meth. resistant Staph. aureus 06/18/24 18:25 Urine, Clean Catch Urine Culture - Final Enterococcus faecalis 06/18/24 18:25 Mucosa - Nose SARS-CoV-2, Influenza & RSV (PCR) - Final Physical Exam Narrative Upper thoracic/lower cervical spine wound with VAC over the incision, holding suction. No excessive tightness of the skin adjacent to the VAC sponge. Drains are SS and strip well. Appropriate output. Const alert and oriented x3 General Appearance: cooperative Orientation / Consciousness: awake, oriented to person, oriented to place and oriented to time HEENT normocephalic Eyes EOMs intact bilaterally Neck full ROM Chest inspection of chest normal Resp normal respiratory effort Resp Narrative: Able to do 1,000 ml on the IS for me this morning (induced some coughing) Cardio regular rate Extremity normal to inspection Extremity Narrative: No excessive lower extremity swelling. SCDs on and activated. Assessment & Plan Assessment/Plan (1) Open wound of tissue overlying spine: QUALIFIERS: Encounter type: initial encounter Laterality: u nspecified laterality Qualified Code(s): S21.209A - Unspecified open wound of unspecified back wall of thorax without penetration into thoracic cavity, initial encounter (2) Radiation adverse effect: QUALIFIERS: Encounter type: sequela Qualified Code(s): T66.XXXS - Radiation sickness, unspecified, sequela PLAN: Plan Post-op day 1 from spinal wound closure. Expected course thus far Continue pressure offloading (only laying on sides, pressure offloading bed should continue). No pressure on the closure. Continue PT, OK to walk with PT with walker, but no extreme/major shoulder abduction (discussed with patient). Agree with restarting anticoagulation since >24 hours out from surgery. PSU will continue to follow. Anticipate VAC removal from incision on 10 Jul 2024 to check the wound. Needs to remain inpatient for pressure offloading, and to check for bleeding (while on anticoagulation) at least until the incisional VAC is removed and the wound is assessed on 10 Jul 2024. Charges/Coding Procedures Integumentary [id number]: [id number] Global Visit
--- NOTE | 2024-07-06 08:28 | PN.HOSP_ITS ---
Reason for Visit Reason for Visit: Diagnoses Paraplegia, unspecified (06/18/24) Unspecified open wound of unspecified back wall of thorax without penetration into thoracic cavity, initial encounter (06/18/24) Radiation sickness, unspecified, initial encounter (06/18/24) Radiation sickness, unspecified, sequela (06/18/24) Infection following a procedure, unspecified, initial encounter (06/18/24) Subjective Subjective Feels. No issues overnight. Objective Data Objective Data Vital Signs: Vital Signs Temp Pulse Resp BP Pulse Ox O2 Del Method O2 Flow Rate 37.1 C 63 16 93/45 L 93 Room Air 2 07/06/24 02:24 07/06/24 02:24 07/06/24 02:24 07/06/24 02:24 07/06/24 02:24 07/06/24 02:24 07/04/24 20:40 Oxygen Flow Rate (L/min) 2 Oxygen Delivery Method Room Air Weight: 72.5 kg Body Mass Index (BMI) 26.6 Intake & Output: Intake and Output for Last 24 Hours 07/04/24 07/05/24 07/06/24 23:59 23:59 23:59 Intake Total 495 / 495 955.25 / 1155.25 300 / 300 Output Total 2550 / 2550 1520 / 2220 1140 / 1140 Balance -2055 / -2055 -564.75 / -1064.75 -840 / -840 Lab / Micro Data 07/06/24 06:08 07/06/24 06:08 Labs: Laboratory Results - last 24 hr 07/05/24 17:34: Vancomycin Trough 16.9 H 07/06/24 06:08: WBC 6.6, RBC 3.41 L, Hgb 9.8 L, Hct 30.9 L, MCV 90.6, MCH 28.7, MCHC 31.7 L, RDW Std Deviation 52.6 H, RDW Coeff of Hattie 15.9 H, Plt Count 177, MPV 9.6, Immature Gran % (Auto) 0.500, Neut % (Auto) 71.9 H, Lymph % (Auto) 10.2 L, [place] % (Auto) 14.8 H, Eos % (Auto) 2.0, Baso % (Auto) 0.6, Absolute Neuts (auto) 4.7, Absolute Lymphs (auto) 0.67 L, Nucleated RBC % 0, Sodium 135 L, Potassium 3.9, Chloride 101, Carbon Dioxide 27.0, Anion Gap 7, BUN 36 H, C reatinine 1.53 H, Estim Creat Clear Calc 41.31, Est GFR (MDRD) Af Amer 59 L, Est GFR (MDRD) Non-Af 49 L, BUN/Creatinine Ratio 23.5 H, Glucose 103, Calcium 8.7 Micro: Microbiology 06/29/24 10:20 Wound Abcess - Aerobic & Anaerobic Swabs Gram Stain - Final 06/29/24 10:20 Wound Abcess - Aerobic & Anaerobic Swabs Wound Culture - Final No growth aerobically. 06/29/24 10:20 Wound Abcess - Aerobic & Anaerobic Swabs Anaerobic Culture - Final No growth in 5 days. 06/26/24 08:45 Bone - Back Gram Stain - Final 06/26/24 08:45 Bone - Back Wound Culture - Final No growth aerobically. 06/26/24 08:45 Bone - Back Anaerobic Culture - Final No growth in 5 days. 06/26/24 08:45 Wound - Cervical Gram Stain - Final 06/26/24 08:45 Wound - Cervical Wound Culture - Final Staphylococcus lugdunensis Staphylococcus epidermidis 06/26/24 08:45 Wound - Cervical Anaerobic Culture - Final No growth in 5 days. 06/26/24 08:45 Wound - Cervical Gram Stain - Final 06/26/24 08:45 Wound - Cervical Wound Culture - Final Enterococcus faecalis 06/26/24 08:45 Wound - Cervical Anaerobic Culture - Final No growth in 5 days. 06/26/24 08:45 Tissue - Cervical Gram Stain - Final 06/26/24 08:45 Tissue - Cervical Wound Culture - Final No growth aerobically. 06/26/24 08:45 Tissue - Cervical Anaerobic Culture - Final No growth in 5 days. 06/26/24 08:45 Tissue - Cervical Gram Stain - Final 06/26/24 08:45 Tissue - Cervical Wound Culture - Final Staphylococcus lugdunensis 06/26/24 08:45 Tissue - Cervical Anaerobic Culture - Final No anaerobic bacteria isolated. 06/18/24 18:25 Blood Culture (Wb) - Port Blood Culture - Final No growth in 5 days. 06/19/24 00:05 Wound - Back Gram Stain - Final 06/19/24 00:05 Wound - Back Wound Culture - Final Meth. resistant Staph. aureus Gram positive cesar 06/19/24 00:05 Wound - Back Skin and Soft Tissue MRSA/MSSA (PCR - Final Meth. resistant Staph. aureus 06/18/24 18:25 Urine, Clean Catch Urine Culture - Final Enterococcus faecalis 06/18/24 18:25 Mucosa - Nose SARS-CoV-2, Influenza & RSV (PCR) - Final Physical Exam Const alert and no apparent distress HEENT head/scalp atraumatic and moist oral mucous membranes Resp normal respiratory effort, no retractions, no use of accessory muscles and clear to auscultation bilaterally Cardio regular rate, regular rhythm, S1 normal heart sound and S2 normal heart sound GI normal to inspection, nondistended, normoactive bowel sounds, soft to palpation, non-tender and non-distended Psych affect normal Assessment & Plan Assessment/Plan (1) Open wound of tissue overlying spine: QUALIFIERS: Encounter type: initial encounter Laterality: u nspecified laterality Qualified Code(s): S21.209A - Unspecified open wound of unspecified back wall of thorax without penetration into thoracic cavity, initial encounter PLAN: Plan Infected back wound * +MRSA * Abx with vancomycin * Surgeries * 06/26: 1. Posterior cervical thoracic irrigation, debridement, wound exploration 2. Posterior cervical thoracic hardware exploration 3. Posterior cervical thoracic bone debridement * 06/29: 1. Posterior cervical thoracic irrigation, debridement, wound exploration 2. Posterior cervical thoracic hardware exploration 3. Posterior cervical thoracic bone debridement. 1) Excision/surgical preparation of wound bed including skin and subcutaneous tissue, 14 x 10 cm 2) Placement of irrigating wound VAC, not disposable * 07/04: 1) Left paraspinous muscle flap, advanced over spinal hardware 2) Right paraspinous muscle flap, advanced over spinal hardware. OPERATIVE FINDINGS: healthy appearing wound base over spine ready for closure * Plastics recommending restarting anticoagulation since great than 24 hour from surgery. Possible wound vac removal on 07/10/2024. Recommending patient remain inpatient until wound can be checked on the to check for bleeding. Chronic conditions: * Multiple myeloma and lower extremity paresis? Patient is followed by Dr. Perez patient previously treated with thoracic decompression in October 2022, radiation therapy in December 2022 to T1-2 8. Patient did receive daratumumab Revlimid starting February 2023 (initially 25 mg then reduced to 15 Mg 3 weeks on 1 week off) and dexamethasone. MI Holiday from Revlimid March 2024- 07/03: Patient walks with walker at baseline, PT/OT, will need outpatient [id number]-[id number]-07/8: Continue supportive care, blood cell count 4.3, hemoglobin 10.4 today, platelet count within normal limits-07/05: Continue working with PT. 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 Resumed 07/05. * Hypothyroidism? Patient is on levothyroxine home dose continued-07/03: Continue Synthroid, check TSH in a.m.-07/04: TSH 6.430, will need repeated on outpatient basis VTE prophylaxis: not indicated as already on apixaban. Disposition: pending plastics reevaluation on 07/10, so will remain inpatient until then. Charges/Coding Visit Charges Inpatient E&M: 90104 Subs Hosp L2
[2024-07-06 08:36] VITALS: BP 96/49; PULSE 65; RESP 16; TEMP 37.3; O2SAT 94
[2024-07-06] MEDS: Ferrous Sulfate 325 MG Tablet PO (08:57)
[2024-07-06] MEDS: amLODIPine 10 MG Tablet PO (09:31)
[2024-07-06] MEDS: Baclofen 10 MG Tablet 5 MG PO ×2 (09:31→21:31)
[2024-07-06] MEDS: APIXABAN 5 MG TABLET PO ×2 (09:31→21:30)
[2024-07-06 09:32] VITALS: PULSE 65
[2024-07-06] MEDS: Metoprolol Tartrate 50 MG Tablet PO ×2 (09:32→21:56)
[2024-07-06] MEDS: Polyethylene Glycol 3350 17 GM PACKET PO (09:33)
[2024-07-06] MEDS: Acyclovir 200 MG Capsule 400 MG PO ×2 (09:34→21:31)
[2024-07-06] MEDS: Pantoprazole Sodium 20 MG Tablet PO (09:34)
[2024-07-06] MEDS: Ascorbic Acid 500 MG Tablet 1000 MG PO ×2 (09:37→21:31)
[2024-07-06 13:54] VITALS: BP 102/51; PULSE 62; RESP 16; TEMP 36.9; O2SAT 97
[2024-07-06] MEDS: oxyCODONE 5 MG Tablet 2.5 MG PO (15:35)
[2024-07-06] MEDS: Acetaminophen 325 MG Tablet 650 MG PO (15:36)
[2024-07-06] MEDS: Vancomycin HCl 1,250 MG in 0.9% Normal Saline (250mL Bag) 250 ML 167 MG IV (17:47)
[2024-07-06] MEDS: MELATONIN 3 MG TABLET 6 MG PO (21:31)
[2024-07-06 21:56] VITALS: PULSE 64
[2024-07-06 22:00] VITALS: BP 106/48; PULSE 64; RESP 16; TEMP 36.9; O2SAT 99
[2024-07-07 00:20] VITALS: BP 114/54; PULSE 66; RESP 16; TEMP 37.2; O2SAT 97
[2024-07-07 05:03] VITALS: BP 100/65; PULSE 66; RESP 16; TEMP 37.3; O2SAT 95
[2024-07-07] MEDS: Gabapentin 100 MG Capsule PO ×3 (05:08→21:06)
[2024-07-07] MEDS: Levothyroxine 100 MCG Tablet PO (05:08)
[2024-07-07] MEDS: Menthol/Lanolin/Calamine/Znox 113 GM Tube 1 APPLIC TOPICAL ×3 (05:09→21:08)
[2024-07-07] MEDS: oxyCODONE 5 MG Tablet 2.5 MG PO ×3 (05:31→21:17)
[2024-07-07] MEDS: Acetaminophen 325 MG Tablet 650 MG PO ×3 (05:32→21:17)
[2024-07-07 05:47] LABS: Absolute Lymphocyte Count 0.51 X10^3/uL (0.83-4.51); Absolute Neutrophil Count 4.7 X10^3/uL (2.0-7.7); Basophil# 0.06 X10^3/uL; Eosinophil# 0.18 X10^3/uL; Eosinophils% 2.9 % (0-5); Hematocrit 32.3 % (40-54); Hemoglobin 10.3 g/dL (13.0-16.5); Lymphocyte # 0.51 X10^3/ul (0.83-4.51); Lymphocyte % 8.3 % (19-41); Mean Corp Hgb Conc 31.9 g/dL (32-36); Mean Corpuscular Hgb 28.9 pg (27.0-32.0); Mean Corpuscular Volume 90.7 fL (80-94); Monocyte# 0.65 X10^3/uL; Monocyte% 10.6 % (0-10); NRBC Flagged by Analyzer 0 % (0-5); Neutrophil % 76.7 % (47-70); POSITIVE DIFFERENTIAL YES; Platelet Count 183 K/mm3 (150-450); RBC Distribution Width CV 15.7 % (11.6-14.6); RBC Distribution Width SD 52.5 fl (35.1-43.9); Red Blood Count 3.56 M/mm3 (4.6-6.2); White Blood Count 6.1 K/mm3 (4.4-11.0)
[2024-07-07 05:57] VITALS: BMI 26.6
[2024-07-07 06:20] LABS: Anion Gap 8 (5-15); BUN 37 mg/dL (7-18); BUN/Creat Ratio 23.7 RATIO (10-20); Calcium,Total 9.4 mg/dL (8.5-10.1); Chloride 102 mmol/L (98-107); Creatinine, Serum 1.56 mg/dL (0.70-1.30); EST Glomerular Filtration Rate 47 mL/min (>60); Est Glom Filt Rate - Afr Amer 57 mL/min (>60); Estimated Creatinine Clearance 40.52 ml/min; Glucose 111 mg/dL (74-106); Potassium 3.9 mmol/L (3.5-5.1); Sodium Level 136 mmol/L (136-145)
--- NOTE | 2024-07-07 07:10 | PCM.PN.SRG ---
Subjective Subjective Doing well today. Pain improving overall, but still some right shoulder pain (not midline back pain though). Wound VAC over incision is holding suction, no issues with it today. He is pressure offloading. Endorses good drain care from nursing staff. He denies having any ripping/tearing sensations on his back. We discussed nutrition and high protein intake given lower numbers on nutrition labs (albumin). He has been eating a lot of protein and working with the holistic nutritionist as an inpatient. Objective Data Objective Data Vital Signs: Vital Signs Temp Pulse Resp BP Pulse Ox O2 Del Method O2 Flow Rate 99.2 F H 66 16 100/65 95 Room Air 2 07/07/24 05:03 07/07/24 05:03 07/07/24 05:03 07/07/24 05:03 07/07/24 05:03 07/07/24 05:03 07/04/24 20:40 Oxygen Flow Rate (L/min) 2 Oxygen Delivery Method Room Air Weight: 159 lb 13.362 oz Body Mass Index (BMI) 26.6 Intake & Output: Intake and Output for Last 24 Hours 07/05/24 07/06/24 07/07/24 23:59 23:59 23:59 Intake Total 955.25 / 1155.25 575 / 825 450 / 450 Output Total 1520 / 2220 2285 / 3295 2430 / 2430 Balance -564.75 / -1064.75 -1710 / -2470 -1979 / -1979 Lab / Micro Data 07/07/24 05:26 07/07/24 05:26 Labs: Laboratory Results - last 24 hr 07/07/24 05:26: WBC 6.1, RBC 3.56 L, Hgb 10.3 L, Hct 32.3 L, MCV 90.7, MCH 28.9, MCHC 31.9 L, RDW Std Deviation 52.5 H, RDW Coeff of Hattie 15.7 H, Plt Count 183, MPV 10.0, Immature Gran % (Auto) 0.500, Neut % (Auto) 76.7 H, Lymph % (Auto) 8.3 L, [place] % (Auto) 10.6 H, Eos % (Auto) 2.9, Baso % (Auto) 1.0, Absolute Neuts (auto) 4.7, Absolute Lymphs (auto) 0.51 L, Nucleated RBC % 0, Sodium 136, Potassium 3.9, Chloride 102, Carbon Dioxide 26.0, Anion Gap 8, BUN 37 H, Creatinine 1.56 H, Estim Creat Clear Calc 40.52, Est GFR (MDRD) Af Amer 57 L, Est GFR (MDRD) Non-Af 47 L, BUN/Creatinine Ratio 23.7 H, Glucose 111 H, Calcium 9.4 Micro: Microbiology 06/29/24 10:20 Wound Abcess - Aerobic & Anaerobic Swabs Gram Stain - Final 06/29/24 10:20 Wound Abcess - Aerobic & Anaerobic Swabs Wound Culture - Final No growth aerobically. 06/29/24 10:20 Wound Abcess - Aerobic & Anaerobic Swabs Anaerobic Culture - Final No growth in 5 days. 06/26/24 08:45 Bone - Back Gram Stain - Final 06/26/24 08:45 Bone - Back Wound Culture - Final No growth aerobically. 06/26/24 08:45 Bone - Back Anaerobic Culture - Final No growth in 5 days. 06/26/24 08:45 Wound - Cervical Gram Stain - Final 06/26/24 08:45 Wound - Cervical Wound Culture - Final Staphylococcus lugdunensis Staphylococcus epidermidis 06/26/24 08:45 Wound - Cervical Anaerobic Culture - Final No growth in 5 days. 06/26/24 08:45 Wound - Cervical Gram Stain - Final 06/26/24 08:45 Wound - Cervical Wound Culture - Final Enterococcus faecalis 06/26/24 08:45 Wound - Cervical Anaerobic Culture - Final No growth in 5 days. 06/26/24 08:45 Tissue - Cervical Gram Stain - Final 06/26/24 08:45 Tissue - Cervical Wound Culture - Final No growth aerobically. 06/26/24 08:45 Tissue - Cervical Anaerobic Culture - Final No growth in 5 days. 06/26/24 08:45 Tissue - Cervical Gram Stain - Final 06/26/24 08:45 Tissue - Cervical Wound Culture - Final Staphylococcus lugdunensis 06/26/24 08:45 Tissue - Cervical Anaerobic Culture - Final No anaerobic bacteria isolated. 06/18/24 18:25 Blood Culture (Wb) - Port Blood Culture - Final No growth in 5 days. 06/19/24 00:05 Wound - Back Gram Stain - Final 06/19/24 00:05 Wound - Back Wound Culture - Final Meth. resistant Staph. aureus Gram positive cesar 06/19/24 00:05 Wound - Back Skin and Soft Tissue MRSA/MSSA (PCR - Final Meth. resistant Staph. aureus 06/18/24 18:25 Urine, Clean Catch Urine Culture - Final Enterococcus faecalis 06/18/24 18:25 Mucosa - Nose SARS-CoV-2, Influenza & RSV (PCR) - Final Physical Exam Narrative Upper thoracic/lower cervical spine wound with VAC over the incision, holding suction. No excessive tightness of the skin adjacent to the VAC sponge. Drains are SS and strip well. Appropriate output (35 and 20 cc from past 24 hours) Const alert and oriented x3 General Appearance: cooperative Orientation / Consciousness: awake, oriented to person, oriented to place and oriented to time HEENT normocephalic Eyes EOMs intact bilaterally Neck full ROM Chest inspection of chest normal Resp normal respiratory effort Resp Narrative: Able to do 1,000 ml on the IS for me this morning (induced some coughing) Cardio regular rate Extremity normal to inspection Extremity Narrative: No excessive lower extremity swelling. SCDs on and activated. Assessment & Plan Assessment/Plan (1) Open wound of tissue overlying spine: QUALIFIERS: Encounter type: initial encounter Laterality: unspecified laterality Qualified Code(s): S21.209A - Unspecified open wound of unspecified back wall of thorax without penetration into thoracic cavity, initial encounter (2) Radiation adverse effect: QUALIFIERS: Encounter type: sequela Qualified Code(s): T66.XXXS - Radiation sickness, unspecified, sequela PLAN: Plan Post-op day 3 from spinal wound closure. Expected course thus far Continue pressure offloading (only laying on sides, pressure offloading bed should continue). No pressure on the closure. Continue PT, OK to walk with PT with walker, but no extreme/major shoulder abduction (discussed with patient). Continue to promote high protein intake for improved wound healing (continue nutrition consult). Weekly nutrition labs. Agree with restarting anticoagulation, PSU to monitor for bleeding. Anticipate VAC removal from incision on 10 Jul 2024 to check the wound. Needs to remain inpatient for pressure offloading, and to check for bleeding (while on anticoagulation) at least until the incisional VAC is removed and the wound is assessed on 10 Jul 2024. Charges/Coding Procedures Integumentary [id number]: [id number] Global Visit
--- NOTE | 2024-07-07 08:05 | PN.HOSP_ITS ---
Reason for Visit Reason for Visit: Diagnoses Paraplegia, unspecified (06/18/24) Unspecified open wound of unspecified back wall of thorax without penetration into thoracic cavity, initial encounter (06/18/24) Radiation sickness, unspecified, initial encounter (06/18/24) Radiation sickness, unspecified, sequela (06/18/24) Infection following a procedure, unspecified, initial encounter (06/18/24) Subjective Subjective Feels well. No new completes. Objective Data Objective Data Vital Signs: Vital Signs Temp Pulse Resp BP Pulse Ox O2 Del Method O2 Flow Rate 37.3 C H 66 16 100/65 95 Room Air 2 07/07/24 05:03 07/07/24 05:03 07/07/24 05:03 07/07/24 05:03 07/07/24 05:03 07/07/24 05:03 07/04/24 20:40 Oxygen Flow Rate (L/min) 2 Oxygen Delivery Method Room Air Weight: 72.5 kg Body Mass Index (BMI) 26.6 Intake & Output: Intake and Output for Last 24 Hours 07/05/24 07/06/24 07/07/24 23:59 23:59 23:59 Intake Total 955.25 / 1155.25 575 / 825 450 / 450 Output Total 1520 / 2220 2285 / 3295 2430 / 2430 Balance -564.75 / -1064.75 -1710 / -2470 -1979 / -1979 Lab / Micro Data 07/07/24 05:26 07/07/24 05:26 Labs: Laboratory Results - last 24 hr 07/07/24 05:26: WBC 6.1, RBC 3.56 L, Hgb 10.3 L, Hct 32.3 L, MCV 90.7, MCH 28.9, MCHC 31.9 L, RDW Std Deviation 52.5 H, RDW Coeff of Hattie 15.7 H, Plt Count 183, MPV 10.0, Immature Gran % (Auto) 0.500, Neut % (Auto) 76.7 H, Lymph % (Auto) 8.3 L, [place] % (Auto) 10.6 H, Eos % (Auto) 2.9, Baso % (Auto) 1.0, Absolute Neuts (auto) 4.7, Absolute Lymphs (auto) 0.51 L, Nucleated RBC % 0, Sodium 136, Potassium 3.9, Chloride 102, Carbon Dioxide 26.0, Anion Gap 8, BUN 37 H, C reatinine 1.56 H, Estim Creat Clear Calc 40.52, Est GFR (MDRD) Af Amer 57 L, Est GFR (MDRD) Non-Af 47 L, BUN/Creatinine Ratio 23.7 H, Glucose 111 H, Calcium 9.4 Micro: Microbiology 06/29/24 10:20 Wound Abcess - Aerobic & Anaerobic Swabs Gram Stain - Final 06/29/24 10:20 Wound Abcess - Aerobic & Anaerobic Swabs Wound Culture - Final No growth aerobically. 06/29/24 10:20 Wound Abcess - Aerobic & Anaerobic Swabs Anaerobic Culture - Final No growth in 5 days. 06/26/24 08:45 Bone - Back Gram Stain - Final 06/26/24 08:45 Bone - Back Wound Culture - Final No growth aerobically. 06/26/24 08:45 Bone - Back Anaerobic Culture - Final No growth in 5 days. 06/26/24 08:45 Wound - Cervical Gram Stain - Final 06/26/24 08:45 Wound - Cervical Wound Culture - Final Staphylococcus lugdunensis Staphylococcus epidermidis 06/26/24 08:45 Wound - Cervical Anaerobic Culture - Final No growth in 5 days. 06/26/24 08:45 Wound - Cervical Gram Stain - Final 06/26/24 08:45 Wound - Cervical Wound Culture - Final Enterococcus faecalis 06/26/24 08:45 Wound - Cervical Anaerobic Culture - Final No growth in 5 days. 06/26/24 08:45 Tissue - Cervical Gram Stain - Final 06/26/24 08:45 Tissue - Cervical Wound Culture - Final No growth aerobically. 06/26/24 08:45 Tissue - Cervical Anaerobic Culture - Final No growth in 5 days. 06/26/24 08:45 Tissue - Cervical Gram Stain - Final 06/26/24 08:45 Tissue - Cervical Wound Culture - Final Staphylococcus lugdunensis 06/26/24 08:45 Tissue - Cervical Anaerobic Culture - Final No anaerobic bacteria isolated. 06/18/24 18:25 Blood Culture (Wb) - Port Blood Culture - Final No growth in 5 days. 06/19/24 00:05 Wound - Back Gram Stain - Final 06/19/24 00:05 Wound - Back Wound Culture - Final Meth. resistant Staph. aureus Gram positive cesar 06/19/24 00:05 Wound - Back Skin and Soft Tissue MRSA/MSSA (PCR - Final Meth. resistant Staph. aureus 06/18/24 18:25 Urine, Clean Catch Urine Culture - Final Enterococcus faecalis 06/18/24 18:25 Mucosa - Nose SARS-CoV-2, Influenza & RSV (PCR) - Final Physical Exam Const alert and no apparent distress HEENT head/scalp atraumatic and moist oral mucous membranes Resp normal respiratory effort, no retractions, no use of accessory muscles and clear to auscultation bilaterally Cardio regular rate, regular rhythm, S1 normal heart sound and S2 normal heart sound GI normal to inspection, nondistended, normoactive bowel sounds, soft to palpation, non-tender and non-distended Skin Skin Narrative: upper back wound with wound vac in place. Assessment & Plan Assessment/Plan (1) Open wound of tissue overlying spine: QUALIFIERS: Encounter type: initial encounter Laterality: u nspecified laterality Qualified Code(s): S21.209A - Unspecified open wound of unspecified back wall of thorax without penetration into thoracic cavity, initial encounter PLAN: Plan Infected back wound * +MRSA * Abx with vancomycin * Surgeries this admission: * 06/26: 1. Posterior cervical thoracic irrigation, debridement, wound exploration 2. Posterior cervical thoracic hardware exploration 3. Posterior cervical thoracic bone debridement * 06/29: 1. Posterior cervical thoracic irrigation, debridement, wound exploration 2. Posterior cervical thoracic hardware exploration 3. Posterior cervical thoracic bone debridement. 1) Excision/surgical preparation of wound bed including skin and subcutaneous tissue, 14 x 10 cm 2) Placement of irrigating wound VAC, not disposable * 07/04: 1) Left paraspinous muscle flap, advanced over spinal hardware 2) Right paraspinous muscle flap, advanced over spinal hardware. OPERATIVE FINDINGS: healthy appearing wound base over spine ready for closure * Plastics recommending restarting anticoagulation since great than 24 hour from surgery. Possible wound vac removal on 07/10/2024. Recommending patient remain inpatient until wound can be checked on the to check for bleeding. Chronic conditions: * Multiple myeloma and lower extremity paresis? Patient is followed by Dr. Perez patient previously treated with thoracic decompression in October 2022, radiation therapy in December 2022 to T1-2 8. Patient did receive daratumumab Revlimid starting February 2023 (initially 25 mg then reduced to 15 Mg 3 weeks on 1 week off) and dexamethasone. [place] Holiday from Revlimid March 2024- 07/03: Patient walks with walker at baseline, PT/OT, will need outpatient [id number]: Continue supportive care, blood cell count 4.3, hemoglobin 10.4 today, platelet count within normal limits-07/05: Continue working with PT. 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 Resumed 07/05. * Hypothyroidism? Patient is on levothyroxine home dose continued-07/03: Continue Synthroid, check TSH in a.m.-07/04: TSH 6.430, will need repeated on outpatient basis VTE prophylaxis: not indicated as already on apixaban. Disposition: pending plastics reevaluation on 07/10, so will remain inpatient until then. Charges/Coding Visit Charges Inpatient E&M: 83355 Subs Hosp L2
[2024-07-07 08:32] VITALS: BP 122/64; PULSE 59; RESP 16; TEMP 36.7; O2SAT 97
[2024-07-07] MEDS: Ferrous Sulfate 325 MG Tablet PO (08:53)
[2024-07-07] MEDS: Polyethylene Glycol 3350 17 GM PACKET PO (10:00)
[2024-07-07] MEDS: Ascorbic Acid 500 MG Tablet 1000 MG PO ×2 (10:00→21:06)
[2024-07-07] MEDS: Acyclovir 200 MG Capsule 400 MG PO ×2 (10:00→21:07)
[2024-07-07] MEDS: amLODIPine 10 MG Tablet PO (10:00)
[2024-07-07] MEDS: Pantoprazole Sodium 20 MG Tablet PO (10:00)
[2024-07-07] MEDS: APIXABAN 5 MG TABLET PO ×2 (10:00→21:06)
[2024-07-07] MEDS: Baclofen 10 MG Tablet 5 MG PO ×2 (10:00→21:06)
--- NOTE | 2024-07-07 11:32 | CASEMGMT ---
Addendum entered by Mala Prater 07/07/24 15:24: LYNETTE updated pt sister on TCU acceptance. Pt sister reports that she had visited [facility] and had been talking to friends and family, but is grateful for TCU acceptance, as staffing was a concern pt sister noted. SW will continue to follow and provide updates. BRAD Ward Original Note: Social Work- SW met with pt to discuss Revlimid; pt states that he has not taken it since March and does not need to take it as long as his cancer numbers come back okay. Pt does not plan to be on this medication while at TCU. Pt is aware that he cannot have infusions, outside appointments with Dr Rosario, etc. Pt reports he is aware. SW shared this information with TCU; pt has acceptance pending pt medically ready. Pt anticipated d/c on 07/10. Plan: TCU; pending medical readiness on 07/10 BRAD Ward
[2024-07-07] MEDS: Ensure Plus High Protein 120 ML LIQUID PO ×2 (12:21→16:15)
[2024-07-07] MEDS: Vancomycin HCl 1,250 MG in 0.9% Normal Saline (250mL Bag) 250 ML 167 MG IV (18:14)
[2024-07-07] MEDS: 0.9 % NaCl (Sterile) Posiflush 10 mL IV (18:14)
[2024-07-07 20:55] VITALS: BP 114/60; PULSE 64; RESP 16; TEMP 36.6; O2SAT 98
[2024-07-07] MEDS: MELATONIN 3 MG TABLET 6 MG PO (21:06)
[2024-07-07 21:07] VITALS: PULSE 64
[2024-07-07] MEDS: Metoprolol Tartrate 50 MG Tablet PO (21:07)
[2024-07-08 04:20] VITALS: BP 106/54; PULSE 71; RESP 16; TEMP 37.4; O2SAT 97
[2024-07-08] MEDS: Menthol/Lanolin/Calamine/Znox 113 GM Tube 1 APPLIC TOPICAL ×3 (05:59→20:29)
[2024-07-08] MEDS: Gabapentin 100 MG Capsule PO ×3 (05:59→20:26)
[2024-07-08] MEDS: Levothyroxine 100 MCG Tablet PO (05:59)
[2024-07-08 06:00] VITALS: BMI 30.1
[2024-07-08 06:31] LABS: Absolute Lymphocyte Count 0.35 X10^3/uL (0.83-4.51); Absolute Neutrophil Count 3.8 X10^3/uL (2.0-7.7); Basophil# 0.03 X10^3/uL; Basophil% 0.6 % (0-1); Eosinophil# 0.19 X10^3/uL; Eosinophils% 3.8 % (0-5); Hematocrit 29.7 % (40-54); Hemoglobin 9.6 g/dL (13.0-16.5); Lymphocyte # 0.35 X10^3/ul (0.83-4.51); Lymphocyte % 7.1 % (19-41); Mean Corp Hgb Conc 32.3 g/dL (32-36); Mean Corpuscular Hgb 29.2 pg (27.0-32.0); Mean Corpuscular Volume 90.3 fL (80-94); Mean Platelet Vol. 10.4 fl (6.2-12.0); Monocyte# 0.52 X10^3/uL; Monocyte% 10.5 % (0-10); NRBC Flagged by Analyzer 0 % (0-5); Neutrophil # 3.83 X10^3/uL (2.7-7.7); Neutrophil % 77.4 % (47-70); POSITIVE DIFFERENTIAL YES; Platelet Count 172 K/mm3 (150-450); RBC Distribution Width CV 15.5 % (11.6-14.6); Red Blood Count 3.29 M/mm3 (4.6-6.2)
[2024-07-08 07:02] LABS: Anion Gap 8 (5-15); BUN 32 mg/dL (7-18); BUN/Creat Ratio 25.2 RATIO (10-20); Calcium,Total 8.9 mg/dL (8.5-10.1); Chloride 102 mmol/L (98-107); Creatinine, Serum 1.27 mg/dL (0.70-1.30); EST Glomerular Filtration Rate 60 mL/min (>60); Est Glom Filt Rate - Afr Amer 73 mL/min (>60); Estimated Creatinine Clearance 56.41 ml/min; Glucose 101 mg/dL (74-106); Potassium 3.8 mmol/L (3.5-5.1); Sodium Level 135 mmol/L (136-145)
--- NOTE | 2024-07-08 07:03 | PN.SURG_ITS ---
Subjective Subjective Doing well today. Pain improving overall. He is pressure offloading. Endorses good drain care from nursing staff. He denies having any ripping/tearing sensations on his back. Updated on plan to change incisional VAC on 10 Jul 2024. Objective Data Objective Data Vital Signs: Vital Signs Temp Pulse Resp BP Pulse Ox O2 Del Method O2 Flow Rate 99.3 F H 71 16 106/54 L 97 Room Air 2 07/08/24 04:20 07/08/24 04:20 07/08/24 04:20 07/08/24 04:20 07/08/24 04:20 07/08/24 04:20 07/04/24 20:40 Oxygen Flow Rate (L/min) 2 Oxygen Delivery Method Room Air Weight: 180 lb 12.465 oz Body Mass Index (BMI) 30.1 Intake & Output: Intake and Output for Last 24 Hours 07/06/24 07/07/24 07/08/24 23:59 23:59 23:59 Intake Total 575 / 825 725 / 925 200 / 200 Output Total 2285 / 3295 2952 / 3822 1583 / 1583 Balance -1710 / -2470 -2227 / -2897 -1383 / -1383 Lab / Micro Data 07/08/24 05:40 07/08/24 05:40 Labs: Laboratory Results - last 24 hr 07/08/24 05:40: WBC 5.0, RBC 3.29 L, Hgb 9.6 L, Hct 29.7 L, MCV 90.3, MCH 29.2, MCHC 32.3, RDW Std Deviation 52.0 H, RDW Coeff of Hattie 15.5 H, Plt Count 172, MPV 10.4, Immature Gran % (Auto) 0.600, Neut % (Auto) 77.4 H, Lymph % (Auto) 7.1 L, [place] % (Auto) 10.5 H, Eos % (Auto) 3.8, Baso % (Auto) 0.6, Absolute Neuts (auto) 3.8, Absolute Lymphs (auto) 0.35 L, Nucleated RBC % 0, Sodium 135 L, Potassium 3.8, Chloride 102, Carbon Dioxide 26.0, Anion Gap 8, BUN 32 H, Creatinine 1.27, Estim Creat Clear Calc 56.41, Est GFR (MDRD) Af Amer 73, Est GFR (MDRD) Non-Af 60, BUN/Creatinine Ratio 25.2 H, Glucose 101, Calcium 8.9 Micro: Microbiology 06/29/24 10:20 Wound Abcess - Aerobic & Anaerobic Swabs Gram Stain - Final 06/29/24 10:20 Wound Abcess - Aerobic & Anaerobic Swabs Wound Culture - Final No growth aerobically. 06/29/24 10:20 Wound Abcess - Aerobic & Anaerobic Swabs Anaerobic Culture - Final No growth in 5 days. 06/26/24 08:45 Bone - Back Gram Stain - Final 06/26/24 08:45 Bone - Back Wound Culture - Final No growth aerobically. 06/26/24 08:45 Bone - Back Anaerobic Culture - Final No growth in 5 days. 06/26/24 08:45 Wound - Cervical Gram Stain - Final 06/26/24 08:45 Wound - Cervical Wound Culture - Final Staphylococcus lugdunensis Staphylococcus epidermidis 06/26/24 08:45 Wound - Cervical Anaerobic Culture - Final No growth in 5 days. 06/26/24 08:45 Wound - Cervical Gram Stain - Final 06/26/24 08:45 Wound - Cervical Wound Culture - Final Enterococcus faecalis 06/26/24 08:45 Wound - Cervical Anaerobic Culture - Final No growth in 5 days. 06/26/24 08:45 Tissue - Cervical Gram Stain - Final 06/26/24 08:45 Tissue - Cervical Wound Culture - Final No growth aerobically. 06/26/24 08:45 Tissue - Cervical Anaerobic Culture - Final No growth in 5 days. 06/26/24 08:45 Tissue - Cervical Gram Stain - Final 06/26/24 08:45 Tissue - Cervical Wound Culture - Final Staphylococcus lugdunensis 06/26/24 08:45 Tissue - Cervical Anaerobic Culture - Final No anaerobic bacteria isolated. 06/18/24 18:25 Blood Culture (Wb) - Port Blood Culture - Final No growth in 5 days. 06/19/24 00:05 Wound - Back Gram Stain - Final 06/19/24 00:05 Wound - Back Wound Culture - Final Meth. resistant Staph. aureus Gram positive cesar 06/19/24 00:05 Wound - Back Skin and Soft Tissue MRSA/MSSA (PCR - Final Meth. resistant Staph. aureus 06/18/24 18:25 Urine, Clean Catch Urine Culture - Final Enterococcus faecalis 06/18/24 18:25 Mucosa - Nose SARS-CoV-2, Influenza & RSV (PCR) - Final Physical Exam Narrative Upper thoracic/lower cervical spine wound with VAC over the incision, holding suction. No excessive tightness of the skin adjacent to the VAC sponge. Drains are SS and strip well. Appropriate output (20 and 13 cc from past 24 hours) Const alert and oriented x3 General Appearance: cooperative Orientation / Consciousness: awake, oriented to person, oriented to place and oriented to time HEENT normocephalic Eyes EOMs intact bilaterally Neck full ROM Chest inspection of chest normal Resp normal respiratory effort Resp Narrative: Able to do 1,000 ml on the IS for me this morning (induced some coughing) Cardio regular rate Extremity normal to inspection Extremity Narrative: No excessive lower extremity swelling. SCDs on and activated. Assessment & Plan Assessment/Plan (1) Open wound of tissue overlying spine: QUALIFIERS: Encounter type: initial encounter Laterality: u nspecified laterality Qualified Code(s): S21.209A - Unspecified open wound of unspecified back wall of thorax without penetration into thoracic cavity, initial encounter (2) Radiation adverse effect: QUALIFIERS: Encounter type: sequela Qualified Code(s): T66.XXXS - Radiation sickness, unspecified, sequela PLAN: Plan Post-op day 4 from spinal wound closure. Expected course thus far. Infectious Disease following (long-term Vancomycin for Enterococcus and Staph). Continue pressure offloading (only laying on sides, pressure offloading bed should continue). No pressure on the closure. Continue PT, OK to walk with PT with walker, but no extreme/major shoulder abduction (discussed with patient). Continue to promote high protein intake for improved wound healing (continue nutrition consult). Weekly nutrition labs (F/u albumin and prealbumin from today (pending)) Anticipate VAC removal from incision on 10 Jul 2024 to check the wound. Needs to remain inpatient for pressure offloading, and to check for bleeding (while on anticoagulation) at least until the incisional VAC is removed. Charges/Coding Procedures Integumentary [id number]: [id number] Global Visit
--- NOTE | 2024-07-08 07:30 | PN.HOSP_ITS ---
Reason for Visit Reason for Visit: Diagnoses Paraplegia, unspecified (06/18/24) Unspecified open wound of unspecified back wall of thorax without penetration into thoracic cavity, initial encounter (06/18/24) Radiation sickness, unspecified, initial encounter (06/18/24) Radiation sickness, unspecified, sequela (06/18/24) Infection following a procedure, unspecified, initial encounter (06/18/24) Subjective Subjective Feeling well. No new events. Objective Data Objective Data Vital Signs: Vital Signs Temp Pulse Resp BP Pulse Ox O2 Del Method O2 Flow Rate 37.4 C H 71 16 106/54 L 97 Room Air 2 07/08/24 04:20 07/08/24 04:20 07/08/24 04:20 07/08/24 04:20 07/08/24 04:20 07/08/24 04:20 07/04/24 20:40 Oxygen Flow Rate (L/min) 2 Oxygen Delivery Method Room Air Weight: 82 kg Body Mass Index (BMI) 30.1 Intake & Output: Intake and Output for Last 24 Hours 07/06/24 07/07/24 07/08/24 23:59 23:59 23:59 Intake Total 575 / 825 725 / 925 200 / 200 Output Total 2285 / 3295 2952 / 3822 1583 / 1583 Balance -1710 / -2470 -2227 / -2897 -1383 / -1383 Lab / Micro Data 07/08/24 05:40 07/08/24 05:40 Labs: Laboratory Results - last 24 hr 07/08/24 05:40: WBC 5.0, RBC 3.29 L, Hgb 9.6 L, Hct 29.7 L, MCV 90.3, MCH 29.2, MCHC 32.3, RDW Std Deviation 52.0 H, RDW Coeff of Hattie 15.5 H, Plt Count 172, MPV 10.4, Immature Gran % (Auto) 0.600, Neut % (Auto) 77.4 H, Lymph % (Auto) 7.1 L, [place] % (Auto) 10.5 H, Eos % (Auto) 3.8, Baso % (Auto) 0.6, Absolute Neuts (auto) 3.8, Absolute Lymphs (auto) 0.35 L, Nucleated RBC % 0, Sodium 135 L, Potassium 3.8, Chloride 102, Carbon Dioxide 26.0, Anion Gap 8, BUN 32 H, Creatinine 1.27, Estim Creat Clear Calc 56.41, Est GFR (MDRD) Af Amer 73, Est GFR (MDRD) Non-Af 60, BUN/Creatinine Ratio 25.2 H, Glucose 101, Calcium 8.9 Micro: Microbiology 06/29/24 10:20 Wound Abcess - Aerobic & Anaerobic Swabs Gram Stain - Final 06/29/24 10:20 Wound Abcess - Aerobic & Anaerobic Swabs Wound Culture - Final No growth aerobically. 06/29/24 10:20 Wound Abcess - Aerobic & Anaerobic Swabs Anaerobic Culture - Final No growth in 5 days. 06/26/24 08:45 Bone - Back Gram Stain - Final 06/26/24 08:45 Bone - Back Wound Culture - Final No growth aerobically. 06/26/24 08:45 Bone - Back Anaerobic Culture - Final No growth in 5 days. 06/26/24 08:45 Wound - Cervical Gram Stain - Final 06/26/24 08:45 Wound - Cervical Wound Culture - Final Staphylococcus lugdunensis Staphylococcus epidermidis 06/26/24 08:45 Wound - Cervical Anaerobic Culture - Final No growth in 5 days. 06/26/24 08:45 Wound - Cervical Gram Stain - Final 06/26/24 08:45 Wound - Cervical Wound Culture - Final Enterococcus faecalis 06/26/24 08:45 Wound - Cervical Anaerobic Culture - Final No growth in 5 days. 06/26/24 08:45 Tissue - Cervical Gram Stain - Final 06/26/24 08:45 Tissue - Cervical Wound Culture - Final No growth aerobically. 06/26/24 08:45 Tissue - Cervical Anaerobic Culture - Final No growth in 5 days. 06/26/24 08:45 Tissue - Cervical Gram Stain - Final 06/26/24 08:45 Tissue - Cervical Wound Culture - Final Staphylococcus lugdunensis 06/26/24 08:45 Tissue - Cervical Anaerobic Culture - Final No anaerobic bacteria isolated. 06/18/24 18:25 Blood Culture (Wb) - Port Blood Culture - Final No growth in 5 days. 06/19/24 00:05 Wound - Back Gram Stain - Final 06/19/24 00:05 Wound - Back Wound Culture - Final Meth. resistant Staph. aureus Gram positive cesar 06/19/24 00:05 Wound - Back Skin and Soft Tissue MRSA/MSSA (PCR - Final Meth. resistant Staph. aureus 06/18/24 18:25 Urine, Clean Catch Urine Culture - Final Enterococcus faecalis 06/18/24 18:25 Mucosa - Nose SARS-CoV-2, Influenza & RSV (PCR) - Final Physical Exam Const alert and no apparent distress Resp normal respiratory effort, no retractions, no use of accessory muscles and clear to auscultation bilaterally Cardio regular rate, regular rhythm, S1 normal heart sound and S2 normal heart sound GI normal to inspection, nondistended, normoactive bowel sounds, soft to palpation, non-tender and non-distended Neuro Sensorium / Orientation: awake and alert Assessment & Plan Assessment/Plan (1) Open wound of tissue overlying spine: QUALIFIERS: Encounter type: initial encounter Laterality: u nspecified laterality Qualified Code(s): S21.209A - Unspecified open wound of unspecified back wall of thorax without penetration into thoracic cavity, initial encounter PLAN: Plan Infected back wound * +MRSA * Abx with vancomycin to continue through 08/12/2024 * Surgeries this admission: * 06/26: 1. Posterior cervical thoracic irrigation, debridement, wound exploration 2. Posterior cervical thoracic hardware exploration 3. Posterior cervical thoracic bone debridement * 06/29: 1. Posterior cervical thoracic irrigation, debridement, wound exploration 2. Posterior cervical thoracic hardware exploration 3. Posterior cervical thoracic bone debridement. 1) Excision/surgical preparation of wound bed including skin and subcutaneous tissue, 14 x 10 cm 2) Placement of irrigating wound VAC, not disposable * 07/04: 1) Left paraspinous muscle flap, advanced over spinal hardware 2) Right paraspinous muscle flap, advanced over spinal hardware. OPERATIVE FINDINGS: healthy appearing wound base over spine ready for closure * Plastics recommending restarting anticoagulation since great than 24 hour from surgery. Possible wound vac removal on 07/10/2024. Recommending patient remain inpatient until wound can be rechecked on the to check for bleeding. Chronic conditions: * Multiple myeloma and lower extremity paresis? Patient is followed by Dr. Perez patient previously treated with thoracic decompression in October 2022, radiation therapy in December 2022 to T1-2 8. Patient did receive daratumumab Revlimid starting February 2023 (initially 25 mg then reduced to 15 Mg 3 weeks on 1 week off) and dexamethasone. [place] Holiday from Revlimid March 2024- 07/03: Patient walks with walker at baseline, PT/OT, will need outpatient [id number]: Continue supportive care, blood cell count 4.3, hemoglobin 10.4 today, platelet count within normal limits-07/05: Continue working with PT. 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 Resumed 07/05. * Hypothyroidism? Patient is on levothyroxine home dose continued-07/03: Continue Synthroid, check TSH in a.m.-07/04: TSH 6.430, will need repeated on outpatient basis VTE prophylaxis: not indicated as already on apixaban. Disposition: pending plastics reevaluation on 07/10, so will remain inpatient until then. Charges/Coding Visit Charges Inpatient E&M: 62644 Subs Hosp L2
[2024-07-08 08:29] LABS: Albumin, Serum 2.6 g/dL (3.2-5.0)
[2024-07-08 08:31] VITALS: BP 115/58; PULSE 73; RESP 18; TEMP 37.5; O2SAT 94
[2024-07-08] MEDS: Ensure Plus High Protein 120 ML LIQUID PO ×2 (08:35→11:23)
[2024-07-08] MEDS: Polyethylene Glycol 3350 17 GM PACKET PO (08:36)
[2024-07-08 08:37] VITALS: BP 115/58; PULSE 73
[2024-07-08] MEDS: Pantoprazole Sodium 20 MG Tablet PO (08:37)
[2024-07-08] MEDS: Acyclovir 200 MG Capsule 400 MG PO ×2 (08:37→20:25)
[2024-07-08] MEDS: Metoprolol Tartrate 50 MG Tablet PO ×2 (08:37→20:25)
[2024-07-08] MEDS: APIXABAN 5 MG TABLET PO ×2 (08:37→20:26)
[2024-07-08] MEDS: Ascorbic Acid 500 MG Tablet 1000 MG PO ×2 (08:37→20:25)
[2024-07-08] MEDS: amLODIPine 10 MG Tablet PO (08:37)
[2024-07-08] MEDS: Baclofen 10 MG Tablet 5 MG PO ×2 (08:37→20:26)
[2024-07-08] MEDS: Ferrous Sulfate 325 MG Tablet PO (08:37)
[2024-07-08] MEDS: oxyCODONE 5 MG Tablet 2.5 MG PO ×2 (08:46→20:26)
[2024-07-08] MEDS: Acetaminophen 325 MG Tablet 650 MG PO (08:46)
[2024-07-08 14:04] VITALS: BP 108/55; PULSE 65; RESP 18; TEMP 36.8; O2SAT 96
[2024-07-08] MEDS: Vancomycin HCl 1,250 MG in 0.9% Normal Saline (250mL Bag) 250 ML 167 MG IV (17:36)
[2024-07-08] MEDS: MELATONIN 3 MG TABLET 6 MG PO (20:24)
[2024-07-08 20:25] VITALS: BP 110/60; PULSE 70
[2024-07-09 03:00] VITALS: BP 110/56; PULSE 66; RESP 18; TEMP 36.9; O2SAT 97
[2024-07-09 05:46] LABS: Absolute Lymphocyte Count 0.56 X10^3/uL (0.83-4.51); Absolute Neutrophil Count 2.7 X10^3/uL (2.0-7.7); Basophil# 0.04 X10^3/uL; Eosinophil# 0.21 X10^3/uL; Hematocrit 28.6 % (40-54); Lymphocyte # 0.56 X10^3/ul (0.83-4.51); Lymphocyte % 13.5 % (19-41); Mean Corp Hgb Conc 31.5 g/dL (32-36); Mean Corpuscular Hgb 28.7 pg (27.0-32.0); Mean Corpuscular Volume 91.1 fL (80-94); Mean Platelet Vol. 9.9 fl (6.2-12.0); Monocyte# 0.68 X10^3/uL; Monocyte% 16.3 % (0-10); NRBC Flagged by Analyzer 0 % (0-5); Neutrophil # 2.65 X10^3/uL (2.7-7.7); Neutrophil % 63.7 % (47-70); POSITIVE DIFFERENTIAL YES; Platelet Count 155 K/mm3 (150-450); RBC Distribution Width CV 15.5 % (11.6-14.6); RBC Distribution Width SD 51.9 fl (35.1-43.9); Red Blood Count 3.14 M/mm3 (4.6-6.2); White Blood Count 4.2 K/mm3 (4.4-11.0)
[2024-07-09] MEDS: Gabapentin 100 MG Capsule PO ×3 (05:48→21:34)
[2024-07-09] MEDS: Levothyroxine 100 MCG Tablet PO (05:48)
[2024-07-09] MEDS: Menthol/Lanolin/Calamine/Znox 113 GM Tube 1 APPLIC TOPICAL ×3 (05:49→23:58)
[2024-07-09 06:00] VITALS: BMI 25.2
[2024-07-09 06:34] LABS: Anion Gap 5 (5-15); BUN 35 mg/dL (7-18); BUN/Creat Ratio 26.1 RATIO (10-20); Calcium,Total 8.8 mg/dL (8.5-10.1); Chloride 105 mmol/L (98-107); Creatinine, Serum 1.34 mg/dL (0.70-1.30); EST Glomerular Filtration Rate 57 mL/min (>60); Est Glom Filt Rate - Afr Amer 68 mL/min (>60); Estimated Creatinine Clearance 47.17 ml/min; Glucose 101 mg/dL (74-106); Potassium 4.3 mmol/L (3.5-5.1); Sodium Level 138 mmol/L (136-145)
--- NOTE | 2024-07-09 06:55 | PN.HOSP_ITS ---
Reason for Visit Reason for Visit: Diagnoses Paraplegia, unspecified (06/18/24) Unspecified open wound of unspecified back wall of thorax without penetration into thoracic cavity, initial encounter (06/18/24) Radiation sickness, unspecified, initial encounter (06/18/24) Radiation sickness, unspecified, sequela (06/18/24) Infection following a procedure, unspecified, initial encounter (06/18/24) Subjective Subjective Feeling well. No new events. Objective Data Objective Data Vital Signs: Vital Signs Temp Pulse Resp BP Pulse Ox O2 Del Method O2 Flow Rate 36.9 C 66 18 110/56 L 97 Room Air 2 07/09/24 03:00 07/09/24 03:00 07/09/24 03:00 07/09/24 03:00 07/09/24 03:00 07/09/24 03:00 07/04/24 20:40 Oxygen Flow Rate (L/min) 2 Oxygen Delivery Method Room Air Weight: 68.7 kg Body Mass Index (BMI) 25.2 Intake & Output: Intake and Output for Last 24 Hours 07/07/24 07/08/24 07/09/24 23:59 23:59 23:59 Intake Total 725 / 925 475 / 675 400 / 400 Output Total 2952 / 3822 2410 / 2710 700 / 700 Balance -2227 / -2897 -1935 / -2035 -300 / -300 Lab / Micro Data 07/09/24 05:13 07/09/24 05:13 Labs: Laboratory Results - last 24 hr 07/08/24 05:40: Sodium 135 L, Potassium 3.8, Chloride 102, Carbon Dioxide 26.0, Anion Gap 8, BUN 32 H, Creatinine 1.27, Estim Creat Clear Calc 56.41, Est GFR (MDRD) Af Amer 73, Est GFR (MDRD) Non-Af 60, BUN/Creatinine Ratio 25.2 H, Glucose 101, Calcium 8.9, Albumin 2.6 L 07/09/24 05:13: WBC 4.2 L, RBC 3.14 L, Hgb 9.0 L, Hct 28.6 L, MCV 91.1, MCH 28.7, MCHC 31.5 L, RDW Std Deviation 51.9 H, RDW Coeff of Hattie 15.5 H, Plt Count 155, MPV 9.9, Immature Gran % (Auto) 0.500, Neut % (Auto) 63.7, Lymph % (Auto) 13.5 L, [place] % (Auto) 16.3 H, Eos % (Auto) 5.0, Baso % (Auto) 1.0, Absolute Neuts (auto) 2.7, Absolute Lymphs (auto) 0.56 L, Nucleated RBC % 0, Sodium 138, Potassium 4.3, Chloride 105, Carbon Dioxide 28.0, Anion Gap 5, BUN 35 H, C reatinine 1.34 H, Estim Creat Clear Calc 47.17, Est GFR (MDRD) Af Amer 68, Est GFR (MDRD) Non-Af 57 L, BUN/Creatinine Ratio 26.1 H, Glucose 101, Calcium 8.8 Micro: Microbiology 06/29/24 10:20 Wound Abcess - Aerobic & Anaerobic Swabs Gram Stain - Final 06/29/24 10:20 Wound Abcess - Aerobic & Anaerobic Swabs Wound Culture - Final No growth aerobically. 06/29/24 10:20 Wound Abcess - Aerobic & Anaerobic Swabs Anaerobic Culture - Final No growth in 5 days. 06/26/24 08:45 Bone - Back Gram Stain - Final 06/26/24 08:45 Bone - Back Wound Culture - Final No growth aerobically. 06/26/24 08:45 Bone - Back Anaerobic Culture - Final No growth in 5 days. 06/26/24 08:45 Wound - Cervical Gram Stain - Final 06/26/24 08:45 Wound - Cervical Wound Culture - Final Staphylococcus lugdunensis Staphylococcus epidermidis 06/26/24 08:45 Wound - Cervical Anaerobic Culture - Final No growth in 5 days. 06/26/24 08:45 Wound - Cervical Gram Stain - Final 06/26/24 08:45 Wound - Cervical Wound Culture - Final Enterococcus faecalis 06/26/24 08:45 Wound - Cervical Anaerobic Culture - Final No growth in 5 days. 06/26/24 08:45 Tissue - Cervical Gram Stain - Final 06/26/24 08:45 Tissue - Cervical Wound Culture - Final No growth aerobically. 06/26/24 08:45 Tissue - Cervical Anaerobic Culture - Final No growth in 5 days. 06/26/24 08:45 Tissue - Cervical Gram Stain - Final 06/26/24 08:45 Tissue - Cervical Wound Culture - Final Staphylococcus lugdunensis 06/26/24 08:45 Tissue - Cervical Anaerobic Culture - Final No anaerobic bacteria isolated. 06/18/24 18:25 Blood Culture (Wb) - Port Blood Culture - Final No growth in 5 days. 06/19/24 00:05 Wound - Back Gram Stain - Final 06/19/24 00:05 Wound - Back Wound Culture - Final Meth. resistant Staph. aureus Gram positive cesar 06/19/24 00:05 Wound - Back Skin and Soft Tissue MRSA/MSSA (PCR - Final Meth. resistant Staph. aureus 06/18/24 18:25 Urine, Clean Catch Urine Culture - Final Enterococcus faecalis 06/18/24 18:25 Mucosa - Nose SARS-CoV-2, Influenza & RSV (PCR) - Final Physical Exam Const alert and no apparent distress HEENT head/scalp atraumatic and moist oral mucous membranes Resp normal respiratory effort, no retractions, no use of accessory muscles and clear to auscultation bilaterally Cardio regular rate, regular rhythm, S1 normal heart sound and S2 normal heart sound GI normal to inspection, nondistended, normoactive bowel sounds, soft to palpation, non-tender and non-distended Skin Skin Narrative: Wound VAC on the back without any surrounding erythema. Neuro Sensorium / Orientation: awake and alert Assessment & Plan Assessment/Plan (1) Open wound of tissue overlying spine: QUALIFIERS: Encounter type: initial encounter Laterality: u nspecified laterality Qualified Code(s): S21.209A - Unspecified open wound of unspecified back wall of thorax without penetration into thoracic cavity, initial encounter PLAN: Plan Infected back wound * +MRSA * Abx with vancomycin to continue through 08/12/2024 * Surgeries this admission: * 06/26: 1. Posterior cervical thoracic irrigation, debridement, wound exploration 2. Posterior cervical thoracic hardware exploration 3. Posterior cervical thoracic bone debridement * 06/29: 1. Posterior cervical thoracic irrigation, debridement, wound exploration 2. Posterior cervical thoracic hardware exploration 3. Posterior cervical thoracic bone debridement. 1) Excision/surgical preparation of wound bed including skin and subcutaneous tissue, 14 x 10 cm 2) Placement of irrigating wound VAC, not disposable * 07/04: 1) Left paraspinous muscle flap, advanced over spinal hardware 2) Right paraspinous muscle flap, advanced over spinal hardware. OPERATIVE FINDINGS: healthy appearing wound base over spine ready for closure * Possible wound vac removal on 07/10/2024. Recommending patient remain inpatient until then so the wound can be rechecked on the to check for bleeding. Chronic conditions: * Multiple myeloma and lower extremity paresis? Patient is followed by Dr. Perez patient previously treated with thoracic decompression in October 2022, radiation therapy in December 2022 to T1-2 8. Patient did receive daratumumab Revlimid starting February 2023 (initially 25 mg then reduced to 15 Mg 3 weeks on 1 week off) and dexamethasone. [place] Holiday from Revlimid March 2024- 07/03: Patient walks with walker at baseline, PT/OT, will need outpatient [id number]: Continue supportive care, blood cell count 4.3, hemoglobin 10.4 today, platelet count within normal limits-07/05: Continue working with PT. 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 Resumed 07/05. * Hypothyroidism? Patient is on levothyroxine home dose continued-07/03: Continue Synthroid, check TSH in a.m.-07/04: TSH 6.430, will need repeated on outpatient basis VTE prophylaxis: not indicated as already on apixaban. Disposition: pending plastics reevaluation on 07/10, so will remain inpatient until then. When ok for discharge, patient will go to the TCU. Charges/Coding Visit Charges Inpatient E&M: 18369 Subs Hosp L2
[2024-07-09 08:08] LABS: Prealbumin 17 mg/dL (10-36)
--- NOTE | 2024-07-09 08:09 | PN.SURG_ITS ---
Subjective Subjective Doing well overall today. He is pressure offloading. Endorses good drain care from nursing staff. He denies having any ripping/tearing sensations on his back. Objective Data Objective Data Vital Signs: Vital Signs Temp Pulse Resp BP Pulse Ox O2 Del Method O2 Flow Rate 98.4 F 66 18 110/56 L 97 Room Air 2 07/09/24 03:00 07/09/24 03:00 07/09/24 03:00 07/09/24 03:00 07/09/24 03:00 07/09/24 03:00 07/04/24 20:40 Oxygen Flow Rate (L/min) 2 Oxygen Delivery Method Room Air Weight: 151 lb 7.321 oz Body Mass Index (BMI) 25.2 Intake & Output: Intake and Output for Last 24 Hours 07/07/24 07/08/24 07/09/24 23:59 23:59 23:59 Intake Total 725 / 925 475 / 675 400 / 400 Output Total 2952 / 3822 2410 / 2710 700 / 700 Balance -2227 / -2897 -1935 / -2035 -300 / -300 Lab / Micro Data 07/09/24 05:13 07/09/24 05:13 Labs: Laboratory Results - last 24 hr 07/08/24 05:40: Albumin 2.6 L, Prealbumin 17 07/09/24 05:13: WBC 4.2 L, RBC 3.14 L, Hgb 9.0 L, Hct 28.6 L, MCV 91.1, MCH 28.7, MCHC 31.5 L, RDW Std Deviation 51.9 H, RDW Coeff of Hattie 15.5 H, Plt Count 155, MPV 9.9, Immature Gran % (Auto) 0.500, Neut % (Auto) 63.7, Lymph % (Auto) 13.5 L, [place] % (Auto) 16.3 H, Eos % (Auto) 5.0, Baso % (Auto) 1.0, Absolute Neuts (auto) 2.7, Absolute Lymphs (auto) 0.56 L, Nucleated RBC % 0, Sodium 138, Potassium 4.3, Chloride 105, Carbon Dioxide 28.0, Anion Gap 5, BUN 35 H, C reatinine 1.34 H, Estim Creat Clear Calc 47.17, Est GFR (MDRD) Af Amer 68, Est GFR (MDRD) Non-Af 57 L, BUN/Creatinine Ratio 26.1 H, Glucose 101, Calcium 8.8 Micro: Microbiology 06/29/24 10:20 Wound Abcess - Aerobic & Anaerobic Swabs Gram Stain - Final 06/29/24 10:20 Wound Abcess - Aerobic & Anaerobic Swabs Wound Culture - Final No growth aerobically. 06/29/24 10:20 Wound Abcess - Aerobic & Anaerobic Swabs Anaerobic Culture - Final No growth in 5 days. 06/26/24 08:45 Bone - Back Gram Stain - Final 06/26/24 08:45 Bone - Back Wound Culture - Final No growth aerobically. 06/26/24 08:45 Bone - Back Anaerobic Culture - Final No growth in 5 days. 06/26/24 08:45 Wound - Cervical Gram Stain - Final 06/26/24 08:45 Wound - Cervical Wound Culture - Final Staphylococcus lugdunensis Staphylococcus epidermidis 06/26/24 08:45 Wound - Cervical Anaerobic Culture - Final No growth in 5 days. 06/26/24 08:45 Wound - Cervical Gram Stain - Final 06/26/24 08:45 Wound - Cervical Wound Culture - Final Enterococcus faecalis 06/26/24 08:45 Wound - Cervical Anaerobic Culture - Final No growth in 5 days. 06/26/24 08:45 Tissue - Cervical Gram Stain - Final 06/26/24 08:45 Tissue - Cervical Wound Culture - Final No growth aerobically. 06/26/24 08:45 Tissue - Cervical Anaerobic Culture - Final No growth in 5 days. 06/26/24 08:45 Tissue - Cervical Gram Stain - Final 06/26/24 08:45 Tissue - Cervical Wound Culture - Final Staphylococcus lugdunensis 06/26/24 08:45 Tissue - Cervical Anaerobic Culture - Final No anaerobic bacteria isolated. 06/18/24 18:25 Blood Culture (Wb) - Port Blood Culture - Final No growth in 5 days. 06/19/24 00:05 Wound - Back Gram Stain - Final 06/19/24 00:05 Wound - Back Wound Culture - Final Meth. resistant Staph. aureus Gram positive cesar 06/19/24 00:05 Wound - Back Skin and Soft Tissue MRSA/MSSA (PCR - Final Meth. resistant Staph. aureus 06/18/24 18:25 Urine, Clean Catch Urine Culture - Final Enterococcus faecalis 06/18/24 18:25 Mucosa - Nose SARS-CoV-2, Influenza & RSV (PCR) - Final Physical Exam Narrative Upper thoracic/lower cervical spine wound with VAC over the incision, holding suction. No excessive tightness of the skin adjacent to the VAC sponge. Drains are SS and strip well. Appropriate output (25 and 35 cc from past 24 hours) Const alert and oriented x3 General Appearance: cooperative Orientation / Consciousness: awake, oriented to person, oriented to place and oriented to time HEENT normocephalic Eyes EOMs intact bilaterally Neck full ROM Chest inspection of chest normal Resp normal respiratory effort Resp Narrative: Able to do 1,000 ml on the IS for me this morning (induced some coughing) Cardio regular rate Extremity normal to inspection Extremity Narrative: No excessive lower extremity swelling. SCDs on and activated. Assessment & Plan Assessment/Plan (1) Open wound of tissue overlying spine: QUALIFIERS: Encounter type: initial encounter Laterality: u nspecified laterality Qualified Code(s): S21.209A - Unspecified open wound of unspecified back wall of thorax without penetration into thoracic cavity, initial encounter (2) Radiation adverse effect: QUALIFIERS: Encounter type: sequela Qualified Code(s): T66.XXXS - Radiation sickness, unspecified, sequela PLAN: Plan Post-op day 4 from spinal wound closure. Expected course thus far. Infectious Disease following (long-term Vancomycin for Enterococcus and Staph). Continue pressure offloading (only laying on sides, pressure offloading bed should continue). No pressure on the closure. Continue PT, OK to walk with PT with walker, but no extreme/major shoulder abduction (discussed with patient). Continue to promote high protein intake for improved wound healing (continue nutrition consult). Weekly nutrition labs (F/u albumin and prealbumin from today (pending)) Anticipate VAC removal from incision on 10 Jul 2024 to check the wound (tomorrow). Needs to remain inpatient for pressure offloading, and to check for bleeding (while on anticoagulation) at least until the incisional VAC is removed. Charges/Coding Procedures Integumentary 111xxx-113xx: [id number] Global Visit
[2024-07-09 08:29] VITALS: BP 97/45; PULSE 61; RESP 16; TEMP 37.1; O2SAT 97
[2024-07-09] MEDS: Acyclovir 200 MG Capsule 400 MG PO ×2 (08:30→21:34)
[2024-07-09] MEDS: Ensure Plus High Protein 120 ML LIQUID PO ×2 (08:30→11:28)
[2024-07-09] MEDS: Pantoprazole Sodium 20 MG Tablet PO (08:31)
[2024-07-09] MEDS: Ferrous Sulfate 325 MG Tablet PO (08:31)
[2024-07-09] MEDS: Baclofen 10 MG Tablet 5 MG PO ×2 (08:31→21:35)
[2024-07-09] MEDS: Ascorbic Acid 500 MG Tablet 1000 MG PO ×2 (08:31→21:35)
[2024-07-09] MEDS: Polyethylene Glycol 3350 17 GM PACKET PO (08:31)
[2024-07-09] MEDS: APIXABAN 5 MG TABLET PO ×2 (08:42→21:34)
[2024-07-09 08:51] VITALS: BP 97/45; PULSE 61
[2024-07-09 15:09] VITALS: BP 102/55; PULSE 72; RESP 18; TEMP 36.8; O2SAT 95
[2024-07-09 17:47] LABS: Vancomycin, Trough Level 15.4 ug/mL (5.0-15.0)
--- NOTE | 2024-07-09 18:15 | PCM.RX.CS ---
Consult Antibiotic Management Pharmacy has been consulted to manage selected antibiotic: Vancomycin Type of Intervention Type of Consult: Follow-up Labs Labs: Sodium 138 mmol/L (136-145) 07/09/24 05:13 Potassium 4.3 mmol/L (3.5-5.1) 07/09/24 05:13 Chloride 105 mmol/L (98-107) 07/09/24 05:13 Carbon Dioxide 28.0 mmol/L (21.0-32.0) 07/09/24 05:13 Anion Gap 5 (5-15) 07/09/24 05:13 BUN 35 mg/dL (7-18) H 07/09/24 05:13 Creatinine 1.34 mg/dL (0.70-1.30) H 07/09/24 05:13 Est GFR (MDRD) Af Amer 68 mL/min (>60) 07/09/24 05:13 Est GFR (MDRD) Non-Af 57 mL/min (>60) L 07/09/24 05:13 BUN/Creatinine Ratio 26.1 RATIO (10-20) H 07/09/24 05:13 Glucose 101 mg/dL (74-106) 07/09/24 05:13 Vancomycin Trough 15.4 ug/mL (5.0-15.0) H 07/09/24 17:23 Random Vancomycin 15.3 ug/mL (0.0-15.0) H 06/30/24 15:52 Microbiology Microbiology: Microbiology 06/29/24 10:20 Wound Abcess - Aerobic & Anaerobic Swabs Gram Stain - Final 06/29/24 10:20 Wound Abcess - Aerobic & Anaerobic Swabs Wound Culture - Final No growth aerobically. 06/29/24 10:20 Wound Abcess - Aerobic & Anaerobic Swabs Anaerobic Culture - Final No growth in 5 days. 06/26/24 08:45 Bone - Back Gram Stain - Final 06/26/24 08:45 Bone - Back Wound Culture - Final No growth aerobically. 06/26/24 08:45 Bone - Back Anaerobic Culture - Final No growth in 5 days. 06/26/24 08:45 Wound - Cervical Gram Stain - Final 06/26/24 08:45 Wound - Cervical Wound Culture - Final Staphylococcus lugdunensis Staphylococcus epidermidis 06/26/24 08:45 Wound - Cervical Anaerobic Culture - Final No growth in 5 days. 06/26/24 08:45 Wound - Cervical Gram Stain - Final 06/26/24 08:45 Wound - Cervical Wound Culture - Final Enterococcus faecalis 06/26/24 08:45 Wound - Cervical Anaerobic Culture - Final No growth in 5 days. 06/26/24 08:45 Tissue - Cervical Gram Stain - Final 06/26/24 08:45 Tissue - Cervical Wound Culture - Final No growth aerobically. 06/26/24 08:45 Tissue - Cervical Anaerobic Culture - Final No growth in 5 days. 06/26/24 08:45 Tissue - Cervical Gram Stain - Final 06/26/24 08:45 Tissue - Cervical Wound Culture - Final Staphylococcus lugdunensis 06/26/24 08:45 Tissue - Cervical Anaerobic Culture - Final No anaerobic bacteria isolated. 06/18/24 18:25 Blood Culture (Wb) - Port Blood Culture - Final No growth in 5 days. 06/19/24 00:05 Wound - Back Gram Stain - Final 06/19/24 00:05 Wound - Back Wound Culture - Final Meth. resistant Staph. aureus Gram positive cesar 06/19/24 00:05 Wound - Back Skin and Soft Tissue MRSA/MSSA (PCR - Final Meth. resistant Staph. aureus 06/18/24 18:25 Urine, Clean Catch Urine Culture - Final Enterococcus faecalis 06/18/24 18:25 Mucosa - Nose SARS-CoV-2, Influenza & RSV (PCR) - Final Pharmacy Plan for Drug Dosing Pharmacy Plan for Drug Dosing: VANCOMYCIN LEVEL RECEIVED Current Vancomycin Dose: 1250MG Q24H Number of Doses Received: many Vancomycin Level: 15.4 mg/dL Hours Since Last Dose: 24 Renal Function: SCR 1.34 mg/dL, CRCL 47 mL/min Renal Function Trend: STABLE Vancomycin Plan/Comments: 24 hour trough is therapeutic (goal 15-20mg/dL). Will continue current dosing and get a trough in 7 days as the last 4 troughs have been therapeutic. Pending Level: 07/16/24 @ 2908 Pharmacy Service will continue to monitor and adjust dosing as required.
[2024-07-09] MEDS: Vancomycin HCl 1,250 MG in 0.9% Normal Saline (250mL Bag) 250 ML 167 MG IV (18:17)
[2024-07-09] MEDS: 0.9% Saline Lock 10 ML Syringe IV (18:17)
[2024-07-09 19:49] VITALS: BP 110/56; PULSE 69; RESP 17; TEMP 37.2; O2SAT 97
[2024-07-09 21:34] VITALS: BP 110/56; PULSE 69
[2024-07-09] MEDS: Metoprolol Tartrate 50 MG Tablet PO (21:34)
[2024-07-09] MEDS: MELATONIN 3 MG TABLET 6 MG PO (21:35)
[2024-07-09] MEDS: 0.9 % NaCl (Sterile) Posiflush 10 mL IV (21:36)
[2024-07-09] MEDS: oxyCODONE 5 MG Tablet 2.5 MG PO (23:56)
[2024-07-09] MEDS: Acetaminophen 325 MG Tablet 650 MG PO (23:57)
[2024-07-10 02:10] VITALS: BP 102/57; PULSE 61; RESP 17; TEMP 37.1; O2SAT 96
[2024-07-10] MEDS: Menthol/Lanolin/Calamine/Znox 113 GM Tube 1 APPLIC TOPICAL ×2 (05:49→14:45)
--- NOTE | 2024-07-10 05:49 | NURSING ---
While changing the vad dressing noticed a old skin tear to rt upper chest. new dressing applied over vad. caps changed. Janet alerted about skin tear and she will apply adaptic dressing
[2024-07-10] MEDS: Gabapentin 100 MG Capsule PO ×2 (05:51→14:43)
[2024-07-10] MEDS: Levothyroxine 100 MCG Tablet PO (05:52)
[2024-07-10 06:09] LABS: Absolute Lymphocyte Count 0.55 X10^3/uL (0.83-4.51); Absolute Neutrophil Count 2.2 X10^3/uL (2.0-7.7); Basophil# 0.02 X10^3/uL; Basophil% 0.6 % (0-1); Eosinophil# 0.25 X10^3/uL; Hematocrit 29.1 % (40-54); Hemoglobin 9.3 g/dL (13.0-16.5); Lymphocyte # 0.55 X10^3/ul (0.83-4.51); Lymphocyte % 15.4 % (19-41); Mean Corpuscular Hgb 29.2 pg (27.0-32.0); Mean Corpuscular Volume 91.2 fL (80-94); Mean Platelet Vol. 10.1 fl (6.2-12.0); Monocyte# 0.52 X10^3/uL; Monocyte% 14.5 % (0-10); NRBC Flagged by Analyzer 0 % (0-5); Neutrophil # 2.23 X10^3/uL (2.7-7.7); Neutrophil % 62.2 % (47-70); POSITIVE DIFFERENTIAL YES; Platelet Count 164 K/mm3 (150-450); RBC Distribution Width CV 15.4 % (11.6-14.6); RBC Distribution Width SD 51.5 fl (35.1-43.9); Red Blood Count 3.19 M/mm3 (4.6-6.2); White Blood Count 3.6 K/mm3 (4.4-11.0)
[2024-07-10 06:45] LABS: Anion Gap 5 (5-15); BUN 41 mg/dL (7-18); BUN/Creat Ratio 32.3 RATIO (10-20); Chloride 104 mmol/L (98-107); Creatinine, Serum 1.27 mg/dL (0.70-1.30); EST Glomerular Filtration Rate 60 mL/min (>60); Est Glom Filt Rate - Afr Amer 73 mL/min (>60); Estimated Creatinine Clearance 49.77 ml/min; Glucose 96 mg/dL (74-106); Potassium 4.2 mmol/L (3.5-5.1); Sodium Level 137 mmol/L (136-145)
--- NOTE | 2024-07-10 08:35 | PCM.PN.SRG ---
Subjective Subjective Doing well overall today. No subjective fevers/chills. No tearing or ripping sensations. He reports good pain control and good drain care by the nursing staff. Compliant with pressure offlaoding. Objective Data Objective Data Nutrition labs from 08 Jul 2024 Prealbumin 16 Albumin 12 Vital Signs: Vital Signs Temp Pulse Resp BP Pulse Ox O2 Del Method O2 Flow Rate 98.7 F 61 17 102/57 L 96 Room Air 2 07/10/24 02:10 07/10/24 02:10 07/10/24 02:10 07/10/24 02:10 07/10/24 02:10 07/10/24 02:10 07/04/24 20:40 Oxygen Flow Rate (L/min) 2 Oxygen Delivery Method Room Air Weight: 151 lb 7.321 oz Body Mass Index (BMI) 25.2 Intake & Output: Intake and Output for Last 24 Hours 07/08/24 07/09/24 07/10/24 23:59 23:59 23:59 Intake Total 475 / 675 675 / 675 Output Total 2410 / 2710 1035 / 1035 1665 / 1665 Balance -1935 / -2035 -360 / -360 -1665 / -1665 Lab / Micro Data 07/10/24 05:12 07/10/24 05:12 Labs: Laboratory Results - last 24 hr 07/09/24 17:23: Vancomycin Trough 15.4 H 07/10/24 05:12: WBC 3.6 L, RBC 3.19 L, Hgb 9.3 L, Hct 29.1 L, MCV 91.2, MCH 29.2, MCHC 32.0, RDW Std Deviation 51.5 H, RDW Coeff of Hattie 15.4 H, Plt Count 164, MPV 10.1, Immature Gran % (Auto) 0.300, Neut % (Auto) 62.2, Lymph % (Auto) 15.4 L, [place] % (Auto) 14.5 H, Eos % (Auto) 7.0 H, Baso % (Auto) 0.6, Absolute Neuts (auto) 2.2, Absolute Lymphs (auto) 0.55 L, Nucleated RBC % 0, Sodium 137, Potassium 4.2, Chloride 104, Carbon Dioxide 28.0, Anion Gap 5, BUN 41 H, Creatinine 1.27, Estim Creat Clear Calc 49.77, Est GFR (MDRD) Af Amer 73, Est GFR (MDRD) Non-Af 60, BUN/Creatinine Ratio 32.3 H, Glucose 96, Calcium 9.0 Micro: Microbiology 06/29/24 10:20 Wound Abcess - Aerobic & Anaerobic Swabs Gram Stain - Final 06/29/24 10:20 Wound Abcess - Aerobic & Anaerobic Swabs Wound Culture - Final No growth aerobically. 06/29/24 10:20 Wound Abcess - Aerobic & Anaerobic Swabs Anaerobic Culture - Final No growth in 5 days. 06/26/24 08:45 Bone - Back Gram Stain - Final 06/26/24 08:45 Bone - Back Wound Culture - Final No growth aerobically. 06/26/24 08:45 Bone - Back Anaerobic Culture - Final No growth in 5 days. 06/26/24 08:45 Wound - Cervical Gram Stain - Final 06/26/24 08:45 Wound - Cervical Wound Culture - Final Staphylococcus lugdunensis Staphylococcus epidermidis 06/26/24 08:45 Wound - Cervical Anaerobic Culture - Final No growth in 5 days. 06/26/24 08:45 Wound - Cervical Gram Stain - Final 06/26/24 08:45 Wound - Cervical Wound Culture - Final Enterococcus faecalis 06/26/24 08:45 Wound - Cervical Anaerobic Culture - Final No growth in 5 days. 06/26/24 08:45 Tissue - Cervical Gram Stain - Final 06/26/24 08:45 Tissue - Cervical Wound Culture - Final No growth aerobically. 06/26/24 08:45 Tissue - Cervical Anaerobic Culture - Final No growth in 5 days. 06/26/24 08:45 Tissue - Cervical Gram Stain - Final 06/26/24 08:45 Tissue - Cervical Wound Culture - Final Staphylococcus lugdunensis 06/26/24 08:45 Tissue - Cervical Anaerobic Culture - Final No anaerobic bacteria isolated. 06/18/24 18:25 Blood Culture (Wb) - Port Blood Culture - Final No growth in 5 days. 06/19/24 00:05 Wound - Back Gram Stain - Final 06/19/24 00:05 Wound - Back Wound Culture - Final Meth. resistant Staph. aureus Gram positive cesar 06/19/24 00:05 Wound - Back Skin and Soft Tissue MRSA/MSSA (PCR - Final Meth. resistant Staph. aureus 06/18/24 18:25 Urine, Clean Catch Urine Culture - Final Enterococcus faecalis 06/18/24 18:25 Mucosa - Nose SARS-CoV-2, Influenza & RSV (PCR) - Final Physical Exam Narrative Upper thoracic/lower cervical spine wound with VAC over the incision was removed today and replaced. No excessive tightness of the skin. Incision c/d/i, no signs of infection. Drains are SS . Appropriate output (20 and 5 cc from past 24 hours, they strip well without clot and are working well) Const alert and oriented x3 General Appearance: cooperative Orientation / Consciousness: awake, oriented to person, oriented to place and oriented to time HEENT normocephalic Eyes EOMs intact bilaterally Neck full ROM Chest inspection of chest normal Resp normal respiratory effort Resp Narrative: Able to do 1,000 ml on the IS for me this morning (induced some coughing) Cardio regular rate Extremity normal to inspection Extremity Narrative: No excessive lower extremity swelling. SCDs on and activated. Assessment & Plan Assessment/Plan (1) Open wound of tissue overlying spine: QUALIFIERS: Encounter type: initial encounter Laterality: unspecified laterality Qualified Code(s): S21.209A - Unspecified open wound of unspecified back wall of thorax without penetration into thoracic cavity, initial encounter (2) Radiation adverse effect: QUALIFIERS: Encounter type: sequela Qualified Code(s): T66.XXXS - Radiation sickness, unspecified, sequela PLAN: Plan Post-op day 6 from spinal wound closure. Expected course thus far. Incisional VAC removed and replaced today. Infectious Disease following (long-term Vancomycin for Enterococcus and Staph). Negative cultures from subsequent debridement after initial debridement and no evidence of malignancy on pathologist's evaluation of the wound edges. Continue pressure offloading (only laying on sides, pressure offloading bed should continue). No pressure on the closure. Continue PT, OK to walk with PT with walker, but no extreme/major shoulder abduction (discussed with patient). Continue to promote high protein intake for improved wound healing (continue nutrition consult). Weekly nutrition labs. Discussed again with patient today. Anticipate VAC removal from incision on 17 Jul 2024 to check the incision. OK for transfer to the transitional care unit, but must continue same bed and same pressure offloading protocol. Charges/Coding Procedures Integumentary 111xxx-113xx: [id number] Global Visit
[2024-07-10 08:38] VITALS: BMI 25.5
[2024-07-10 08:40] VITALS: BP 98/52; PULSE 57; RESP 15; TEMP 37.1; O2SAT 95
[2024-07-10] MEDS: Ensure Plus High Protein 120 ML LIQUID PO ×2 (08:56→12:30)
[2024-07-10] MEDS: Ferrous Sulfate 325 MG Tablet PO (08:56)
[2024-07-10] MEDS: Baclofen 10 MG Tablet 5 MG PO (10:15)
[2024-07-10] MEDS: Polyethylene Glycol 3350 17 GM PACKET PO (10:15)
[2024-07-10] MEDS: Pantoprazole Sodium 20 MG Tablet PO (10:15)
[2024-07-10] MEDS: Acyclovir 200 MG Capsule 400 MG PO (10:15)
[2024-07-10] MEDS: Ascorbic Acid 500 MG Tablet 1000 MG PO (10:16)
[2024-07-10] MEDS: APIXABAN 5 MG TABLET PO (10:17)
[2024-07-10 10:20] VITALS: BP 107/49; PULSE 59
[2024-07-10 10:22] VITALS: BP 107/49; PULSE 59
[2024-07-10] MEDS: Acetaminophen 325 MG Tablet 650 MG PO (10:33)
[2024-07-10 12:00] VITALS: BP 102/55; PULSE 59; RESP 16; TEMP 37; O2SAT 97
--- NOTE | 2024-07-10 15:01 | PCM.TXEXTCAR ---
Diet Diet Order/Speech Therapy: 07/04/24 17:20 Diet: Regular - General Food consistency:: Regular Liquid Consistency:: Regular/Thin Type of Dietary Supplement:: Ariel -orange w/ L&D Diet Comments: please send Ensure High Protein on tray Routine Orders/Code Status Enema Type: Fleetz Enema Frequency: Daily PRN Suppository Type: Dulcolax 10mg Suppository Frequency: Daily PRN O2 Frequency: PRN Keep PO Greater than or Equal to (%): 90 Wound(s) upper mid back x2: Wound Type: Open Surgical Wound Dressing Change: Packed with Iodoform POSTERIOR NECK: Wound Type: Surgical Incision mid upper back: Wound Type: Open Surgical Wound UPPER BACK: Wound Type: Surgical Incision Dressing Change: KCI wound VAC right chest: Wound Type: Skin Tear Suggestions for Active Care Change Position every (hours): 2 Positions to Avoid: don't lay on your back, only lay on sides. Therapies Weight Bearing: Weight bearing as tolerated Physical Therapy: Eval and Treat Occupational Therapy: Eval and Treat Problem/Diagnosis (1) Open wound of tissue overlying spine: Status: Acute Code(s): S21.209A - Unspecified open wound of unspecified back wall of thorax without penetration into thoracic cavity, initial encounter (2) Radiation adverse effect: Status: Acute Code(s): T66.XXXA - Radiation sickness, unspecified, initial encounter Allergies/Procedures Done in Hospital Allergies No Known Allergies Allergy (Verified 06/18/24 17:37) Type of Care/Length of Stay Estimated LOS: Convalescent Care Less Than 30 days Type of Care Needed: Skilled Rehab Potential: Fair Prognosis: Fair Additional Orders/Day of Discharge Day of Discharge: 07/10/24 Dietary and Speech Recommendations Dietitian Recommendations/Changes: Continue liberalized regular diet as order; restrict diet as needed. Continue 1 packet of orange Ariel BID with lunch and dinner. If PO intake declines, will offer ONS. Pt dislikes ensure. Will monitor weight, as available and reassess for malnutrition if weight loss continues. Reviewed and approved by Joyce Calles, MS, RD, LD. Discharge Plan Admission Admit Date/Time: 06/18/24 21:44 Primary Reason for Your Visit: infected back wound Attending Provider: Arianne Crook Primary Care Provider: Christian Milner Consulting Providers: Oren Olivera; Azra Arias; Oren Ledbetter; Armand Menchaca; Tay Mckeon; Edinson Werner; Alberto Kim; Akua Rodríguez; Josef Cervantes Instructions Patient Instructions: Caring for Your Incision, Changing Dressing Dc Discharge Orders/Prescriptions Prescriptions: New vancomycin 1.25 gram recon soln 1.25 g IV Q24H 37 Days Rx Instructions: stop date 08/12/24. Dx: spine osteomyelitis. Weekly bmp, cbc, vanc trough, and esr. Fax to [phone]. Routine picc care per protocol. Continued ferrous sulfate 325 mg (65 mg iron) tablet 325 mg PO DAILY acetaminophen 500 mg capsule 500 mg PO Q6H PRN (Reason: fever or pain) acyclovir 400 mg tablet 400 mg PO Q12H amlodipine 10 mg tablet 10 mg PO DAILY diphenhydramine HCl [Benadryl] 25 mg capsule 25 mg PO ONCE PRN (Reason: itching) Rx Instructions: 1 hour before Darzalex injection gabapentin 100 mg capsule 100 mg PO TID magnesium oxide 400 mg magnesium tablet 250 mg PO .noon melatonin 3 mg capsule 6 mg PO HS metoprolol tartrate 50 mg tablet 50 mg PO BID omeprazole 20 mg tablet,delayed release (DR/EC) 20 mg PO DAILY Patient Comments: Do not take with Vitamin C or Vitamin D together. sennosides-docusate sodium [Senna Plus] 8.6-50 mg tablet 1 tab-cap PO BID simethicone [Gas Relief (simethicone)] 80 mg tablet,chewable 80 mg PO TID PRN (Reason: abdominal distention) ascorbic acid (vitamin C) 1,000 mg tablet 1 g PO BID cholecalciferol (vitamin D3) 125 mcg (5,000 unit) capsule 125 mcg PO DAILY Eliquis 5 mg tablet 5 mg PO BID levothyroxine [Levo-T] 100 mcg tablet 100 mcg PO DAILY magnesium hydroxide [Milk of Magnesia] 400 mg/5 mL suspension 30 ml PO DAILY PRN (Reason: constipation) polyethylene glycol 3350 [ClearLax] 17 gram/dose powder 17 g PO DAILY baclofen 5 mg tablet 5 mg PO BID benzonatate 200 mg capsule 200 mg PO TID PRN (Reason: cough) calcium carbonate 600 mg calcium (1,500 mg) tablet 600 mg PO BID bisacodyl [Dulcolax (bisacodyl)] 10 mg suppository [address] DAILY PRN PRN (Reason: constipation) Ariel 7-7-1.5 gram powder in packet 1 ea PO DAILY dexamethasone 4 mg tablet 20 mg PO Q28D Patient Comments: every 28 days on Rx Instructions: 20 mg orally Days 1 and 2 of each treatment cycle; cycles are repeated at 4 weeks intervals. (DME) Disability Placard See Rx Instructions .Route .MEDSUPPLY Qty: 1 0RF Rx Instructions: Lifetime lenalidomide [Revlimid] 15 mg capsule 15 mg .ROUTE .COMPLEX Qty: 21 6RF Rx Instructions: 15 mg; 3 weeks on then 1 week rest Discontinued sulfamethoxazole-trimethoprim 800-160 mg tablet 1 tab PO Q12H Rx Instructions: x 10 days Referrals / Follow Up: Iraida Balderas MD [Med Staff - [employer] Consultant] - Within 1 Week Oren Ledbetter MD [Med Staff - Active Staff] - Within 1 Week Oren Olivera MD [Med Staff - Active Staff] - Within 1 Week Christian Milner DO [Primary Care Provider] - Disposition Disposition (needs filled in before D/C Order can be placed): Assisted Facility (1) Open wound of tissue overlying spine Qualifiers: Encounter type: initial encounter Laterality: unspecified laterality Qualified Code(s): S21.209A - Unspecified open wound of unspecified back wall of thorax without penetration into thoracic cavity, initial encounter (2) Radiation adverse effect Qualifiers: Encounter type: sequela Qualified Code(s): T66.XXXS - Radiation sickness, unspecified, sequela
--- NOTE | 2024-07-10 15:04 | PCM.DC.SUM ---
Providers Date of Admission: 06/18/24 Date of Discharge: 07/10/24 Primary Care Physician: Dr. Christian Milner, Consultations 06/18/24 23:00 Consult: Infectious Disease Routine Consulting Provider: Oren Ledbetter Reason for Consult: Infected surgical wounds, Hx MRSA EMERGENT Consult: No MD Notified: Yes Date Notified: 06/19/24 Time Notified: 07:10 Method of Notification: Text Consult: Onc/Wound/milking worker Routine Comment: Reason for Consult:: surgical wounds, infected 06/19/24 07:00 Consult: Plastic Surgery Routine Consulting Provider: Oren Olivera Reason for Consult: Infected prior surgical wounds EMERGENT Consult: No MD Notified: Yes Date Notified: 06/19/24 Time Notified: 07:00 Method of Notification: Text 06/19/24 10:17 Consult: Orthopedics Routine Consulting Provider: Armand Menchaca Reason for Consult: Spine wound, assistance requested by plastics EMERGENT Consult: No MD Notified: Yes Date Notified: 06/19/24 Time Notified: 10:28 Method of Notification: Text Reason For Visit: INFECTED WOUNDS TRANSAMINITIS Diagnosis Discharge Diagnosis (1) Open wound of tissue overlying spine: Status: Acute Code(s): S21.209A - Unspecified open wound of unspecified back wall of thorax without penetration into thoracic cavity, initial encounter Qualifiers: Encounter type: initial encounter Laterality: unspecified laterality Qualified Code(s): S21.209A - Unspecified open wound of unspecified back wall of thorax without penetration into thoracic cavity, initial encounter (2) Radiation adverse effect: Status: Acute Code(s): T66.XXXA - Radiation sickness, unspecified, initial encounter Qualifiers: Encounter type: sequela Qualified Code(s): T66.XXXS - Radiation sickness, unspecified, sequela Medications at Discharge Home Medications acetaminophen 500 mg capsule 500 mg PO Q6H PRN fever or pain 07/08/23 acyclovir 400 mg tablet 400 mg PO Q12H 07/08/23 amlodipine 10 mg tablet 10 mg PO DAILY bp 07/08/23 ascorbic acid (vitamin C) 1,000 mg tablet 1 g PO BID supplement 07/08/23 cholecalciferol (vitamin D3) 125 mcg (5,000 unit) capsule 125 mcg PO DAILY supplement 07/08/23 diphenhydramine HCl 25 mg capsule (Benadryl) 25 mg PO ONCE PRN itching 07/08/23 gabapentin 100 mg capsule 100 mg PO TID back 07/08/23 magnesium oxide 250 mg PO .noon bowel health 07/08/23 melatonin 3 mg capsule 6 mg PO HS sleep 07/08/23 metoprolol tartrate 50 mg tablet 50 mg PO BID 07/08/23 omeprazole 20 mg tablet,delayed release 20 mg PO DAILY gerd 07/08/23 sennosides 8.6 mg-docusate sodium 50 mg tablet (Senna Plus) 1 tab-cap PO BID constipation 07/08/23 simethicone 80 mg chewable tablet (Gas Relief (simethicone)) 80 mg PO TID PRN abdominal distention 07/08/23 Disability Placard #1 ea 07/12/23 ferrous sulfate 325 mg (65 mg iron) tablet 325 mg PO DAILY supplement 07/12/23 apixaban 5 mg tablet (Eliquis) 5 mg PO BID vte prophylaxis 07/17/23 baclofen 5 mg tablet 5 mg PO BID back pain 08/12/23 benzonatate 200 mg capsule 200 mg PO TID PRN cough 08/12/23 calcium carbonate 600 mg PO BID supplement 08/12/23 levothyroxine 100 mcg tablet (Levo-T) 100 mcg PO DAILY thyroid 08/12/23 magnesium hydroxide 400 mg/5 mL oral suspension (Milk of Magnesia) 30 ml PO DAILY PRN constipation 08/12/23 polyethylene glycol 3350 17 gram/dose oral powder (ClearLax) 17 g PO DAILY constipation 08/12/23 lenalidomide 15 mg capsule (Revlimid) 15 mg .Route .COMPLEX #21 CAPSULES 04/04/24 arginine 7 gram-glutamine 7 gram-calcium HMB 1.5 gram oral powder pack (Ariel) 1 ea PO DAILY wound 06/18/24 bisacodyl 10 mg rectal suppository (Dulcolax (bisacodyl)) 10 mg DE DAILY PRN PRN constipation 06/18/24 dexamethasone 4 mg tablet 20 mg PO Q28D myeloma 06/19/24 vancomycin 1.25 gram intravenous solution 1.25 g IV Q24H 37 days 07/03/24 Hospital Course Procedures None Summary of Care Provided Minutes Spent on Discharge: 55 Hospital Course: Patient is a 68-year-old male with an extensive past medical history as outlined including multiple myeloma, on chemotherapy as well as paraplegia. He was admitted through the ED on 06/18/2024 with a complaint of shortness of breath and worsening cough. Cough was nonproductive. He also had nonhealing wounds along his thigh and in the cervical and thoracic region. He had been having wound care and his nurses dress his wounds [facility] at his [facility]. On admission liver enzymes were also elevated. WBC was however within normal limits. Liver ultrasound done showed hepatic steatosis with no evidence of any gallbladder abnormality. 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 He was started on IV vancomycin as well as Zosyn and wound cultures were obtained. Wound care and plastic surgery were consulted. Hepatitis panel was also negative. Infectious disease and orthopedic spine surgery were also consulted. He had excision and surgical exploration of the wound bed, and also had biopsy and culture of spinous process as well as placement of an irrigating wound vac for radiated cervical/thoracic spinal wound. He subsequently had posterior cervical thoracic irrigation and debridement as well as posterior cervical thoracic hardware exploration and posterior cervical thoracic bone debridement by spine surgery. He had a protracted and complicated hopsital course. ID was also consulted and he was placed on IV vancomycin. Wound cultures grew MRSA and gram-positive rods. Urine cultures had a small growth of Enterococcus. Surgical culture on 06/26/2024 grew staph lugdunensis and Staph epidermidis. He was scheduled is going to SNF. Per ID he was to go on 6 weeks of IV vancomycin dose for his port with stop date of 08/12/2024 and to have weekly labs done. [facility] was [facility] facility on 07/10/2024. He had had a wound VAC placed by plastic surgery and the wound VAC was changed on 07/10/2024. He is follow-up with his primary care doctor, with plastic surgery and ID within 1-2 weeks. Patient seen and examined prior to discharge. He had no active complaints and had an uneventful night. Review of systems is otherwise negative. Pain is well controlled. Labs and vitals reviewed. Home meds reviewed and reconciled. Physical Exam Const alert, oriented x3 and no apparent distress Constitutional Narrative: frail General Appearance: cooperative and comfortable Exam Limitations: no limitations HEENT normocephalic, head/scalp atraumatic and moist oral mucous membranes Mouth: oral and palatal mucosa normal Eyes PERRL and EOMs intact bilaterally Neck no lymphadenopathy and supple Resp normal respiratory effort, no retractions, no use of accessory muscles and clear to auscultation bilaterally Cardio regular rate, regular rhythm, S1 normal heart sound, S2 normal heart sound and no murmurs GI normal to inspection, nondistended, normoactive bowel sounds, soft to palpation and non-tender Extremity Extremity Narrative: chronic paraplegia. Skin Skin Narrative: intact wound vac over cervical and thoracic spine. Neuro oriented x3 and CN's II-XII intact bilaterally Neuro Narrative: chronic paraplegia Weight / BMI Weight Weight: 153 lb 3.2 oz Body Mass Index (BMI) 25.5 ABG / Lab / Microbiology Data 07/10/24 05:12 07/10/24 05:12 Laboratory: Laboratory Results - last 24 hr 07/09/24 17:23: Vancomycin Trough 15.4 H 07/10/24 05:12: WBC 3.6 L, RBC 3.19 L, Hgb 9.3 L, Hct 29.1 L, MCV 91.2, MCH 29.2, MCHC 32.0, RDW Std Deviation 51.5 H, RDW Coeff of Hattie 15.4 H, Plt Count 164, MPV 10.1, Immature Gran % (Auto) 0.300, Neut % (Auto) 62.2, Lymph % (Auto) 15.4 L, [place] % (Auto) 14.5 H, Eos % (Auto) 7.0 H, Baso % (Auto) 0.6, Absolute Neuts (auto) 2.2, Absolute Lymphs (auto) 0.55 L, Nucleated RBC % 0, Sodium 137, Potassium 4.2, Chloride 104, Carbon Dioxide 28.0, Anion Gap 5, BUN 41 H, Creatinine 1.27, Estim Creat Clear Calc 49.77, Est GFR (MDRD) Af Amer 73, Est GFR (MDRD) Non-Af 60, BUN/Creatinine Ratio 32.3 H, Glucose 96, Calcium 9.0 Microbiology: Microbiology 06/29/24 10:20 Wound Abcess - Aerobic & Anaerobic Swabs Gram Stain - Final 06/29/24 10:20 Wound Abcess - Aerobic & Anaerobic Swabs Wound Culture - Final No growth aerobically. 06/29/24 10:20 Wound Abcess - Aerobic & Anaerobic Swabs Anaerobic Culture - Final No growth in 5 days. 06/26/24 08:45 Bone - Back Gram Stain - Final 06/26/24 08:45 Bone - Back Wound Culture - Final No growth aerobically. 06/26/24 08:45 Bone - Back Anaerobic Culture - Final No growth in 5 days. 06/26/24 08:45 Wound - Cervical Gram Stain - Final 06/26/24 08:45 Wound - Cervical Wound Culture - Final Staphylococcus lugdunensis Staphylococcus epidermidis 06/26/24 08:45 Wound - Cervical Anaerobic Culture - Final No growth in 5 days. 06/26/24 08:45 Wound - Cervical Gram Stain - Final 06/26/24 08:45 Wound - Cervical Wound Culture - Final Enterococcus faecalis 06/26/24 08:45 Wound - Cervical Anaerobic Culture - Final No growth in 5 days. 06/26/24 08:45 Tissue - Cervical Gram Stain - Final 06/26/24 08:45 Tissue - Cervical Wound Culture - Final No growth aerobically. 06/26/24 08:45 Tissue - Cervical Anaerobic Culture - Final No growth in 5 days. 06/26/24 08:45 Tissue - Cervical Gram Stain - Final 06/26/24 08:45 Tissue - Cervical Wound Culture - Final Staphylococcus lugdunensis 06/26/24 08:45 Tissue - Cervical Anaerobic Culture - Final No anaerobic bacteria isolated. 06/18/24 18:25 Blood Culture (Wb) - Port Blood Culture - Final No growth in 5 days. 06/19/24 00:05 Wound - Back Gram Stain - Final 06/19/24 00:05 Wound - Back Wound Culture - Final Meth. resistant Staph. aureus Gram positive cesar 06/19/24 00:05 Wound - Back Skin and Soft Tissue MRSA/MSSA (PCR - Final Meth. resistant Staph. aureus 06/18/24 18:25 Urine, Clean Catch Urine Culture - Final Enterococcus faecalis 06/18/24 18:25 Mucosa - Nose SARS-CoV-2, Influenza & RSV (PCR) - Final D/C Instructions Discharge Diet: Low fat / Low cholesterol Discharge Activity: Return to Normal Activity Weight Bearing Status: Weight bearing as tolerated Call your doctor if you observe: Fever of 101 or Higher, Shortness of breath, Dizziness, Swelling in the ankles and Chest pain Meaningful Use Info Meaningful Use Meaningful Use Diagnoses (Choose all that apply): None applicable Ischemic Stroke Statin Dosing Therapy Reference: STATIN DOSE THERAPY REFERENCE: * Patients > 75 years receive moderate or high dose statin therapy. * Patients 75 years or YOUNGER should receive HIGH intensity statin dose unless contraindicated. You will be required to document reason for non-treatment if statin daily dose does not meet guidelines. HIGH DOSE STATIN THERAPY DAILY Atorvastatin > than or = to 40 mg Rosuvastatin > than or = to 20 mg Amlodipine + Atorvastatin > than or = to 2.5/40 mg Ezetimibe + Simvastatin 10/80 mg Simvastatin 80mg Discharge Plan Admission Admit Date/Time: 06/18/24 21:44 Primary Reason for Your Visit: infected back wound Attending Provider: Arianne Crook Primary Care Provider: Christian Milner Consulting Providers: Oren Olivera; Azra Arias; Oren Ledbetter; Armand Menchaca; Tay Mckeon; Edinson Werner; Alberto Kim; Akua Rodríguez; Josef Cervantes Instructions Patient Instructions: Caring for Your Incision, Changing Dressing Dc Additional Instructions / Restrictions: to have weekly CBC and BMP till he is done with his course of IV vancomycin. Discharge Orders/Prescriptions Prescriptions: New vancomycin 1.25 gram recon soln 1.25 g IV Q24H 37 Days Rx Instructions: stop date 08/12/24. Dx: spine osteomyelitis. Weekly bmp, cbc, vanc trough, and esr. Fax to [phone]. Routine picc care per protocol. Continued ferrous sulfate 325 mg (65 mg iron) tablet 325 mg PO DAILY acetaminophen 500 mg capsule 500 mg PO Q6H PRN (Reason: fever or pain) acyclovir 400 mg tablet 400 mg PO Q12H amlodipine 10 mg tablet 10 mg PO DAILY diphenhydramine HCl [Benadryl] 25 mg capsule 25 mg PO ONCE PRN (Reason: itching) Rx Instructions: 1 hour before Darzalex injection gabapentin 100 mg capsule 100 mg PO TID magnesium oxide 400 mg magnesium tablet 250 mg PO .noon melatonin 3 mg capsule 6 mg PO HS metoprolol tartrate 50 mg tablet 50 mg PO BID omeprazole 20 mg tablet,delayed release (DR/EC) 20 mg PO DAILY Patient Comments: Do not take with Vitamin C or Vitamin D together. sennosides-docusate sodium [Senna Plus] 8.6-50 mg tablet 1 tab-cap PO BID simethicone [Gas Relief (simethicone)] 80 mg tablet,chewable 80 mg PO TID PRN (Reason: abdominal distention) ascorbic acid (vitamin C) 1,000 mg tablet 1 g PO BID cholecalciferol (vitamin D3) 125 mcg (5,000 unit) capsule 125 mcg PO DAILY Eliquis 5 mg tablet 5 mg PO BID levothyroxine [Levo-T] 100 mcg tablet 100 mcg PO DAILY magnesium hydroxide [Milk of Magnesia] 400 mg/5 mL suspension 30 ml PO DAILY PRN (Reason: constipation) polyethylene glycol 3350 [ClearLax] 17 gram/dose powder 17 g PO DAILY baclofen 5 mg tablet 5 mg PO BID benzonatate 200 mg capsule 200 mg PO TID PRN (Reason: cough) calcium carbonate 600 mg calcium (1,500 mg) tablet 600 mg PO BID bisacodyl [Dulcolax (bisacodyl)] 10 mg suppository 10 mg DE DAILY PRN PRN (Reason: constipation) Ariel 7-7-1.5 gram powder in packet 1 ea PO DAILY dexamethasone 4 mg tablet 20 mg PO Q28D Patient Comments: every 28 days on Rx Instructions: 20 mg orally Days 1 and 2 of each treatment cycle; cycles are repeated at 4 weeks intervals. (DME) Disability Placard See Rx Instructions .Route .MEDSUPPLY Qty: 1 0RF Rx Instructions: Lifetime lenalidomide [Revlimid] 15 mg capsule 15 mg .ROUTE .COMPLEX Qty: 21 6RF Rx Instructions: 15 mg; 3 weeks on then 1 week rest Discontinued sulfamethoxazole-trimethoprim 800-160 mg tablet 1 tab PO Q12H Rx Instructions: x 10 days Referrals / Follow Up: Iraida Balderas MD [Med Staff - [employer]] - Within 1 Week Oren Ledbetter MD [Med Staff - Active Staff] - Within 1 Week Oren Olivera MD [Med Staff - Active Staff] - Within 1 Week Christian Milner DO [Primary Care Provider] - Disposition Disposition (needs filled in before D/C Order can be placed): Longterm Facility Charges/Coding Visit Charges Inpatient E&M: 29385 Disch Hosp >30min
--- NOTE | 2024-07-10 15:18 | CASEMGMT ---
Social Work- SW received BARI for pt. Bedside nurse advised. Pt and pt sister advised. Discharge paperwork faxed to TCU. Plan: [facility]
== END 2024-07-10 16:29 | disposition skilled nursing facility (03) | DRG 857 ==
LOC: ED 21:51 → PCU 22:36 → MS3 07-04 18:14
PROVIDERS: Anesthesiology; Family Medicine; Internal Medicine; Internal Medicine Infectious Disease; Orthopaedic Surgery; Surgery Plastic and Reconstructive Surgery; Admitting Provider Family Medicine; Emergency Provider Emergency Medicine; Visit Provider Student in an Organized Health Care Education/Training Program
PROC: 0KXF0ZZ Transfer Right Trunk Muscle, Open Approach (ICD-10-PCS; principal; 2024-07-04 12:45)
DX: T81.43XA Infection following a procedure, organ and space surgical site, initial encounter (principal); N17.9 Acute kidney failure, unspecified; C90.00 Multiple myeloma not having achieved remission; G82.20 Paraplegia, unspecified; E87.1 Hypo-osmolality and hyponatremia; M48.54XA Collapsed vertebra, not elsewhere classified, thoracic region, initial encounter for fracture; B95.62 Methicillin resistant Staphylococcus aureus infection as the cause of diseases classified elsewhere; T66.XXXA Radiation sickness, unspecified, initial encounter; D50.9 Iron deficiency anemia, unspecified; E03.9 Hypothyroidism, unspecified; I10 Essential (primary) hypertension; K76.0 Fatty (change of) liver, not elsewhere classified; Z68.31 Body mass index [BMI] 31.0-31.9, adult; S21.209A Unspecified open wound of unspecified back wall of thorax without penetration into thoracic cavity, initial encounter; T81.89XA Other complications of procedures, not elsewhere classified, initial encounter; K21.9 Gastro-esophageal reflux disease without esophagitis; E78.5 Hyperlipidemia, unspecified; D63.0 Anemia in neoplastic disease; G83.10 Monoplegia of lower limb affecting unspecified side; R73.9 Hyperglycemia, unspecified; Z79.01 Long term (current) use of anticoagulants; Z86.718 Personal history of other venous thrombosis and embolism; Z79.890 Hormone replacement therapy; Z92.3 Personal history of irradiation; E66.811 Obesity, class 1; Z51.0 Encounter for antineoplastic radiation therapy; Z92.21 Personal history of antineoplastic chemotherapy; Y82.9 Unspecified medical devices associated with adverse incidents; R05.9 Cough, unspecified; Z86.14 Personal history of Methicillin resistant Staphylococcus aureus infection
CPT/HCPCS: 36415; 36591; 71045; 72020; 72126; 72129; 76000; 76705; 80048; 80053; 80202; 81001; 82040; 82607; 82728; 83036; 83540; 83550; 83605; 83735; 84100; 84134; 84443; 85025; 85610; 85652; 85730; 86140; 86850; 86900; 86901; 87015; 87040; 87070; 87075; 87077; 87086; 87088; 87102; 87116; 87149; 87176; 87186; 87205; 87206; 87631; 87640; 88305; 93005; 94668; 97110; 97116; 97162; 97166; 97530; 97802; 97803; 99284; J7030; J7040; J7050; J7120; Q9967; A4216; J0295; J2405

== ENCOUNTER 2024-07-10 17:05 | Inpatient (IN) | payer MEDICARE, OTHER, SELFPAY ==
[2024-07-10 17:26] VITALS: BP 104/55; PULSE 64; RESP 12; TEMP 37.1; O2SAT 98
[2024-07-10 18:25] VITALS: BMI 29.5
--- NOTE | 2024-07-10 19:40 | HP.PCM_ITS ---
HPI - General General Date of Admission: 07/10/24 Date of Service: 07/10/24 Chief Complaint: Here for rehabilitation. HPI Narrative RACHEAL BURLESON, is a 68 Male who presents with following: Past medical history of multiple myeloma on chemotherapy, paraplegia. Admitted with shortness of breath, worsening cough, dry cough. Non healing wounds, thigh, cervical, thoracic regions. Elevated LFT's, liver ultrasound showed fatty liver. 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 Excision, surgical exploration of wound, placement of irrigating wound VAC. Dr. Ledbetter recommended Vancomycin IV thru port for 6 weeks, stop date 08/12/2024. 07/10/2024 Admit to TCU with debility, here for rehabilitation, strengthening, intravenous antibiotics, prior to discharge to [facility]. 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 History of radiation therapy Non-healing surgical wound Paraplegia Anemia Multiple myeloma DVT (deep venous thrombosis) Back pain Hypothyroidism Hypertension Hypercholesteremia Home Medications ?Medication ?Instructions ?Recorded ?Last Taken ?Type acetaminophen 500 mg capsule 500 mg PO Q6H PRN fever or pain 07/08/23 Unknown History acyclovir 400 mg tablet 400 mg PO Q12H virus 07/08/23 Unknown History amlodipine 10 mg tablet 10 mg PO DAILY bp 07/08/23 Unknown History ascorbic acid (vitamin C) 1,000 mg 1 g PO BID supplement 07/08/23 Unknown History tablet cholecalciferol (vitamin D3) 125 125 mcg PO DAILY supplement 07/08/23 Unknown History mcg (5,000 unit) capsule diphenhydramine HCl 25 mg capsule 25 mg PO ONCE PRN itching 07/08/23 Unknown History (Benadryl) gabapentin 100 mg capsule 100 mg PO TID back 07/08/23 Unknown History magnesium oxide 250 mg PO .noon bowel health 07/08/23 Unknown History melatonin 3 mg capsule 6 mg PO HS sleep 07/08/23 Unknown History metoprolol tartrate 50 mg tablet 50 mg PO BID BP 07/08/23 Unknown History omeprazole 20 mg tablet,delayed 20 mg PO DAILY gerd 07/08/23 Unknown History release sennosides 8.6 mg-docusate sodium 1 tab-cap PO BID constipation 07/08/23 Unknown History 50 mg tablet (Senna Plus) simethicone 80 mg chewable tablet 80 mg PO TID PRN abdominal 07/08/23 Unknown History (Gas Relief (simethicone)) distention Disability Placard #1 ea 07/12/23 Unknown Rx ferrous sulfate 325 mg (65 mg 325 mg PO DAILY supplement 07/12/23 Unknown History iron) tablet apixaban 5 mg tablet (Eliquis) 5 mg PO BID vte prophylaxis 07/17/23 Unknown History baclofen 5 mg tablet 5 mg PO BID back pain 08/12/23 Unknown History benzonatate 200 mg capsule 200 mg PO TID PRN cough 08/12/23 Unknown History calcium carbonate 600 mg PO BID supplement 08/12/23 Unknown History levothyroxine 100 mcg tablet 100 mcg PO DAILY thyroid 08/12/23 Unknown History (Levo-T) magnesium hydroxide 400 mg/5 mL 30 ml PO DAILY PRN constipation 08/12/23 Unknown History oral suspension (Milk of Magnesia) polyethylene glycol 3350 17 17 g PO DAILY constipation 08/12/23 Unknown History gram/dose oral powder (ClearLax) lenalidomide 15 mg capsule 15 mg .Route .COMPLEX #21 CAPSULES 04/04/24 Unknown Rx (Revlimid) arginine 7 gram-glutamine 7 1 ea PO DAILY wound 06/18/24 Unknown History gram-calcium HMB 1.5 gram oral powder pack (Ariel) bisacodyl 10 mg rectal suppository 10 mg FL DAILY PRN PRN constipation 06/18/24 Unknown History (Dulcolax (bisacodyl)) dexamethasone 4 mg tablet 20 mg PO Q28D myeloma 06/19/24 Unknown History vancomycin 1.25 gram intravenous 1.25 g IV Q24H infection 37 days 07/03/24 Unknown Rx solution Allergy/AdvReac Type Severity Reaction Status Date / Time No Known Allergies Allergy Verified 06/18/24 17:37 Family History Mother Follicular lymphoma Father Hypertension Heart disease Brother Hypertension Other Cancer Surgical History History of back surgery History of tooth extraction H/O laminectomy History of cholecystectomy Social History (Updated 07/10/24 @ 19:[address] Burt Kaba MD) housing: assisted living facility Smoking Status: Never smoker alcohol intake: former substance use type: does not use ROS Constitutional Constitutional: Reports weakness; Denies chills, fever(s) or weight gain ENT HEENT: Denies headache(s), nasal congestion or nasal discharge Cardiovascular Cardiovascular: Denies chest pain or palpitations Respiratory/Chest Respiratory/Chest: Denies cough, excessive phlegm production or shortness of breath with exertion Gastrointestinal Gastrointestinal: Denies abdominal pain, nausea or vomiting Genitourinary Genitourinary: Denies dysuria Musculoskeletal Musculoskeletal: Denies joint pain or joint swelling Integumentary Integumentary: Denies rash or wounds Neurologic Neurologic: Denies focal weakness, numbness or tingling Psychiatric Psychiatric: Denies anxiety, auditory hallucinations, depression, homicidal ideation or suicidal ideation Vital Signs Vital Signs Vital Signs: 07/10/24 17:26 Temperature 98.7 F Temperature Source Oral Pulse Rate 64 Respiratory Rate 12 Blood Pressure 104/55 L Blood Pressure Mean 71 Blood Pressure Source Monitor Blood Pressure Position Semi-Fowlers Blood Pressure Location Right Arm Pulse Ox 98 Oxygen Delivery Method Room Air Weight Weight: 80.649 kg Body Mass Index (BMI) 29.5 Physical Exam Const alert General Appearance: cooperative HEENT normocephalic Eyes PERRL and EOMs intact bilaterally Neck supple, no JVD and no carotid bruits Resp normal respiratory effort, normal air movement and clear to auscultation bilaterally Cardio regular rate and regular rhythm GI normal to inspection, nondistended, normoactive bowel sounds, non-tender and non-distended Extremity normal capillary refill Extremity Narrative: Right upper arm port. General Extremity: Negative for edema Skin Wound Narrative: Upper thoracic/lower cervical wound with wound VAC. Neuro moves all extremities Neuro Narrative: Bilateral lower extremity weakness. Psych affect normal Appearance: appropriate Assessment & Plan Assessment/Plan (1) Debility: (2) Open wound of tissue overlying spine: QUALIFIERS: Encounter type: initial encounter Laterality: unspecified laterality Qualified Code(s): S21.209A - Unspecified open wound of unspecified back wall of thorax without penetration into thoracic cavity, initial encounter (3) Osteomyelitis of thoracic spine: (4) Paraplegia: (5) Multiple myeloma: (6) Essential (primary) hypertension: (7) Neuropathic pain: (8) Insomnia: (9) GERD (gastroesophageal reflux disease): (10) Muscle spasm: PLAN: Plan 68 year old male with below past medical history hospitalized with thoracic spine osteomyelitis, overlying wound, underwent surgical excision/debridement with placement of wound VAC, admitted to TCU with debility, here for rehabilitation, strengthening, intravenous antibiotics, prior to discharge to [facility]. * Debility - PT/OT. * Pain - Tylenol 1000mg q6 prn pain (1-10). * Bowel - Miralax 17gm daily, Senna/colace 1 tablet bid, Dulcolax 10mg pr daily prn. * Adult immunization - Administer pneumonia vaccine, covid vaccine, flu vaccine as appropriate. * DVT prophylaxis - on Eliquis. * Herpes Zoster prophylaxis - Acyclovir 400mg q12h. * Hypertension - Metoprolol 50mg bid, Amlodipine 10mg daily. * DVT/PE - Eliquis 5mg bid. * Vitamin C deficiency - Vitamin C 1000mg bid. * Muscle spasm - Baclofen 5mg bid. * Cough - Tessalon perles 200mg tid prn. * Calcium deficiency - Calcium 500mg bidcm. * Vitamin D deficiency - D3 125mcg daily. * Iron deficiency anemia - Ferrous sulfate 325mg daily. * Neuropathic pain - Gabapentin 100mg tid. * Lower cervical/upper thoracic wound with wound VAC - Ariel 1 packet po daily, Consult Dr. Olivera. * Hypothyroidism - Levothyroxine 100mcg daily. * Hypomagnesemia - Magnesium chloride 128mg daily. * Insomnia - Melatonin 6mg qhs. * GERD - Pantoprazole 20mg daily. * Gas - Simethicone 80mg tid prn. * Thoracic spine osteomyelitis - Vancomycin 1250mg iv q24 thru 08/12/2024, Consult Dr. Ledbetter.
[2024-07-10 20:00] VITALS: PULSE 64; RESP 16; O2SAT 95
[2024-07-10] MEDS: Vancomycin HCl 1,250 MG in 0.9% Normal Saline (250mL Bag) 250 ML 167 MG IV (20:25)
[2024-07-10] MEDS: 0.9% Saline Lock 10 ML Syringe IV (20:26)
[2024-07-10] MEDS: 0.9% Normal Saline (100mL Bag) 100 ML 15 ML IV (20:36)
--- NOTE | 2024-07-10 20:36 | PCM.RX.CS ---
Consult Antibiotic Management Pharmacy has been consulted to manage selected antibiotic: Vancomycin Type of Intervention Type of Consult: New start Suspected Infection Suspected Infection: Other Prior Doses of Antibiotics Prior Doses of Antibiotics Received/Current Regimen: On 1250mg iv q24h on MS3. Dosing Weight Weight used for dosin.6 kg Estimated Creatinine Clearance Estimated Creatinine Clearance: 47ml/min Goal Trough Goal Trough: 15-20 mcg/mL Pharmacy Plan for Drug Dosing Pharmacy Plan for Drug Dosing: Recommend continuing dose of 1250mg iv q24h. Trough 15.4 on 07.09.24 and in therapeutic range. Trough level ordered for before 4th dose on TCU. Pharmacy Service will continue to monitor and adjust dosing as required. Follow-Up Labs Follow-Up Labs: Trough: Vancomycin (07.13.24 @1830)
[2024-07-10 21:42] VITALS: BP 119/67; PULSE 63; O2SAT 95
[2024-07-10] MEDS: Ascorbic Acid 500 MG Tablet 1000 MG PO (21:44)
[2024-07-10] MEDS: APIXABAN 5 MG TABLET PO (21:44)
[2024-07-10 21:45] VITALS: BP 119/67; PULSE 63
[2024-07-10] MEDS: Metoprolol Tartrate 50 MG Tablet PO (21:45)
[2024-07-10] MEDS: Senna/Docusate Sodium 1 Tablet PO (21:45)
[2024-07-10] MEDS: Acyclovir 200 MG Capsule 400 MG PO (21:45)
[2024-07-10] MEDS: Baclofen 10 MG Tablet 5 MG PO (21:47)
[2024-07-10] MEDS: MELATONIN 3 MG TABLET 6 MG PO (21:47)
[2024-07-10] MEDS: Gabapentin 100 MG Capsule PO (21:50)
[2024-07-11] MEDS: Gabapentin 100 MG Capsule PO ×3 (05:56→22:08)
[2024-07-11] MEDS: Levothyroxine 100 MCG Tablet PO (05:56)
[2024-07-11 05:59] LABS: Anion Gap 5 (5-15); BUN 34 mg/dL (7-18); BUN/Creat Ratio 26.4 RATIO (10-20); Calcium,Total 8.8 mg/dL (8.5-10.1); Chloride 105 mmol/L (98-107); Creatinine, Serum 1.29 mg/dL (0.70-1.30); EST Glomerular Filtration Rate 59 mL/min (>60); Est Glom Filt Rate - Afr Amer 71 mL/min (>60); Glucose 107 mg/dL (74-106); Potassium 4.2 mmol/L (3.5-5.1); Sodium Level 138 mmol/L (136-145)
[2024-07-11 06:04] LABS: Absolute Lymphocyte Count 0.46 X10^3/uL (0.83-4.51); Absolute Neutrophil Count 3.1 X10^3/uL (2.0-7.7); Basophil# 0.02 X10^3/uL; Basophil% 0.5 % (0-1); Eosinophil# 0.23 X10^3/uL; Eosinophils% 5.5 % (0-5); Hematocrit 29.9 % (40-54); Hemoglobin 9.5 g/dL (13.0-16.5); Lymphocyte # 0.46 X10^3/ul (0.83-4.51); Lymphocyte % 10.9 % (19-41); Mean Corp Hgb Conc 31.8 g/dL (32-36); Mean Corpuscular Hgb 28.9 pg (27.0-32.0); Mean Corpuscular Volume 90.9 fL (80-94); Monocyte# 0.39 X10^3/uL; Monocyte% 9.2 % (0-10); NRBC Flagged by Analyzer 0 % (0-5); Neutrophil # 3.11 X10^3/uL (2.7-7.7); Neutrophil % 73.7 % (47-70); POSITIVE DIFFERENTIAL YES; Platelet Count 167 K/mm3 (150-450); RBC Distribution Width CV 15.4 % (11.6-14.6); RBC Distribution Width SD 52.2 fl (35.1-43.9); Red Blood Count 3.29 M/mm3 (4.6-6.2); White Blood Count 4.2 K/mm3 (4.4-11.0)
[2024-07-11 06:12] LABS: Erythrocyte Sedimentation Rate 44 mm/hr (0-20)
[2024-07-11] MEDS: Baclofen 10 MG Tablet 5 MG PO ×2 (08:20→22:09)
[2024-07-11] MEDS: Juven (unflavored) Packet 1 PACKET PO (08:20)
[2024-07-11] MEDS: APIXABAN 5 MG TABLET PO ×2 (08:20→22:08)
[2024-07-11] MEDS: Calcium (Elemental) 500 MG Tablet PO ×2 (08:20→17:24)
[2024-07-11] MEDS: Ferrous Sulfate 325 MG Tablet PO (08:20)
[2024-07-11] MEDS: Acyclovir 200 MG Capsule 400 MG PO ×2 (08:21→22:09)
[2024-07-11] MEDS: amLODIPine 10 MG Tablet PO (08:21)
[2024-07-11] MEDS: Senna/Docusate Sodium 1 Tablet PO ×2 (08:21→22:09)
[2024-07-11] MEDS: Cholecalciferol (Vit D3) 125 MCG CAPSULE (5,000 UNITS) PO (08:21)
[2024-07-11] MEDS: Ascorbic Acid 500 MG Tablet 1000 MG PO ×2 (08:21→22:09)
[2024-07-11 08:24] VITALS: PULSE 66
[2024-07-11] MEDS: Nystatin Powder 15gm Bottle 1 APPLIC TOPICAL ×2 (08:24→22:12)
[2024-07-11] MEDS: Metoprolol Tartrate 50 MG Tablet PO ×2 (08:24→22:10)
[2024-07-11] MEDS: Pantoprazole Sodium 20 MG Tablet PO (08:24)
[2024-07-11] MEDS: Menthol/Lanolin/Calamine/Znox 113 GM Tube 1 APPLIC TOPICAL ×2 (08:24→22:11)
--- NOTE | 2024-07-11 08:44 | PCM.PN.DRR ---
Documented by User: Katherine Sparks 07/11/24 09:25 TCU RX Drug Regimen Review Subjective/Objective Subjective/Objective: Subjective: TCU Admission. 68 YOM hospitalized with thoracic spine osteomyelitis, overlying wound, underwent surgical excision/debridement with placement of wound VAC. Admitted to TCU with debility for strengthening and rehabilitation. Objective: Allergies No Known Allergies Allergy (Verified 06/18/24 17:37) Current Medications Generic Name Dose Route Start Last Admin Trade Name Freq PRN Reason Stop Dose Admin Acetaminophen 500 mg 07/10/24 17:28 Acetaminophen 500 Mg Tablet PO Q6H PRN fever or pain Acyclovir 400 mg 07/10/24 22:00 07/11/24 08:21 Acyclovir 200 Mg Capsule PO 400 mg Q12 DAVID Administration Amlodipine Besylate 10 mg 07/11/24 10:00 07/11/24 08:21 Amlodipine 10 Mg Tablet PO 10 mg DAILY DAVID Administration Protocol Apixaban 5 mg 07/10/24 22:00 07/11/24 08:20 Apixaban 5 Mg Tablet PO 5 mg BID DAVID Administration Ascorbic Acid 1,000 mg 07/10/24 22:00 07/11/24 08:21 Ascorbic Acid 500 Mg Tablet PO 1,000 mg BID DAVID Administration Baclofen 5 mg 07/10/24 22:00 07/11/24 08:20 Baclofen 10 Mg Tablet PO 5 mg BID DAVID Administration Benzonatate 200 mg 07/10/24 18:33 Benzonatate 100 Mg Capsule PO TID PRN cough Bisacodyl 10 mg 07/10/24 17:28 Bisacodyl 10 Mg Suppository RC DAILY PRN PRN constipation Calamine/Phenol 1 applic 07/11/24 10:00 07/11/24 08:24 Menthol/Lanolin/Calamine/Znox 113 Gm Tube TOPICAL 1 applic BID DAVID Administration Protocol Calcium Carbonate 500 mg 07/11/24 08:00 07/11/24 08:20 Calcium (Elemental) 500 Mg Tablet PO 500 mg BIDCM DAVID Administration Cholecalciferol 125 mcg 07/11/24 10:00 07/11/24 08:21 Cholecalciferol (Vit D3) 125 Mcg Capsule (5,000 Units) PO 125 mcg DAILY DAVID Administration Ferrous Sulfate 325 mg 07/11/24 08:00 07/11/24 08:20 Ferrous Sulfate 325 Mg Tablet PO 325 mg DAILYCM DAVID Administration Gabapentin 100 mg 07/10/24 22:00 07/11/24 05:56 Gabapentin 100 Mg Capsule PO 100 mg TID DAVID Administration Heparin Sodium (Beef Lung) 50 units 07/10/24 18:18 Heparin Pf Lock 10 Units/Ml 50 Units/5 Ml Syringe IV UD PRN Port-a-Cath (VAD)Heparin Flush Sodium Chloride 100 mls @ 15 mls/hr 07/10/24 18:18 07/10/24 22:50 IV 0 mls/hr .Q6H40M PRN Infusion Saline Flush Sodium Chloride 100 mls @ 15 mls/hr 07/10/24 18:18 IV .Q6H40M PRN Additional IVPB Infusion Vancomycin HCl 1,250 mg/ 275 mls @ 167 mls/hr 07/10/24 19:00 07/10/24 22:50 Sodium Chloride IV 08/12/24 19:00 Infused Q24H DAVID Infusion Vancomycin IV-PHARMACY TO DOSE 500 mls @ 250 mls/hr 07/10/24 20:29 1 each/ Sodium Chloride IV PRN PRN Rx to Dose Protocol L-Arginine/L-Glutamine/Calcium HMB 1 packet 07/11/24 10:00 07/11/24 08:20 Ariel (Unflavored) Packet PO 1 packet DAILY DAVID Administration Levothyroxine Sodium 100 mcg 07/11/24 06:00 07/11/24 05:56 Levothyroxine 100 Mcg Tablet PO 100 mcg DAILY@0600 DAVID Administration Magnesium Chloride 128 mg 07/11/24 12:00 Magnesium Chloride 64 Mg Delay Rel.Tablet PO DAILY@1200 DAVID Melatonin 6 mg 07/10/24 22:00 07/10/24 21:47 Melatonin 3 Mg Tablet PO 6 mg HS DAVID Administration Metoprolol Tartrate 50 mg 07/10/24 22:00 07/11/24 08:24 Metoprolol Tartrate 50 Mg Tablet PO 50 mg BID DAVID Administration Protocol Nystatin 1 applic 07/11/24 10:00 07/11/24 08:24 Nystatin Powder 15gm Bottle TOPICAL 1 applic BID DAVID Administration Protocol Pantoprazole Sodium 20 mg 07/11/24 10:00 07/11/24 08:24 Pantoprazole Sodium 20 Mg Tablet PO 20 mg DAILY DAVID Administration Polyethylene Glycol 17 gm 07/11/24 10:00 07/11/24 08:28 Polyethylene Glycol 3350 17 Gm Packet PO Not Given DAILY DAVID Senna/Docusate Sodium 1 tablet 07/10/24 22:00 07/11/24 08:21 Senna/Docusate Sodium 1 Tablet PO 1 tablet BID DAVID Administration Simethicone 80 mg 07/10/24 17:28 Simethicone 80 Mg Chewable Tablet PO TID PRN abdominal distention Sodium Chloride 10 - 40 ml 07/10/24 18:18 0.9 % Nacl (Sterile) Posiflush 10 Ml IV UD PRN Port access or dressing change Sodium Chloride 10 - 40 ml 07/10/24 18:18 07/10/24 20:26 0.9% Saline Lock 10 Ml Syringe IV 10 ml UD PRN Administration Port-a-Cath (VAD) Flush Tuberculin PPD 0.1 ml 07/11/24 10:00 Tuberculin,Purif.Prot.Deriv. 50 Tu/Ml Vial ID 07/11/24 10:01 X1 ONE Tuberculin PPD 0.1 ml 07/18/24 10:00 Tuberculin,Purif.Prot.Deriv. 50 Tu/Ml Vial ID 07/18/24 10:01 X1 ONE Vancomycin Protocol 1 lab 07/13/24 17:00 Vancomycin Trough/Random Due MC 07/13/24 21:00 DAILY DAVID Problem List Muscle spasm (Acute) GERD (gastroesophageal reflux disease) (Acute) Insomnia (Acute) Neuropathic pain (Acute) Essential (primary) hypertension (Acute) Osteomyelitis of thoracic spine (Acute) Debility (Acute) Open wound of tissue overlying spine (Acute) Paraplegia (Chronic) Multiple myeloma (Chronic) Vital Signs Temp Pulse Resp BP Pulse Ox O2 Del Method 98.7 F 66 16 119/67 95 Room Air 07/10/24 17:26 07/11/24 08:24 07/10/24 20:00 07/10/24 21:45 07/10/24 21:42 07/10/24 21:42 Oxygen Delivery Method Room Air Weight: 80.649 kg Body Mass Index (BMI) 29.5 Sodium 138 mmol/L (136-145) 07/11/24 05:20 Potassium 4.2 mmol/L (3.5-5.1) 07/11/24 05:20 Chloride 105 mmol/L (98-107) 07/11/24 05:20 Carbon Dioxide 28.0 mmol/L (21.0-32.0) 07/11/24 05:20 Anion Gap 5 (5-15) 07/11/24 05:20 BUN 34 mg/dL (7-18) H 07/11/24 05:20 Creatinine 1.29 mg/dL (0.70-1.30) 07/11/24 05:20 Est GFR (MDRD) Af Amer 71 mL/min (>60) 07/11/24 05:20 Est GFR (MDRD) Non-Af 59 mL/min (>60) L 07/11/24 05:20 BUN/Creatinine Ratio 26.4 RATIO (10-20) H 07/11/24 05:20 Glucose 107 mg/dL (74-106) H 07/11/24 05:20 Assessment/Plan: 1. Pain: acetaminophen 1000mg PO Q6H PRN pain 1-10. Please continue to monitor for PRN usage and increased pain. No PRN doses have been given. 2. Bowel: Miralax 17gm PO daily, senna/docusate 1T PO BID and bisacodyl 10mg RC daily PRN constipation. No PRN doses given. Please continue to monitor for S/S of constipation and PRN usage. Last documented bowel movement was 07/10. 3. Thoracic spine osteomyelitis/Lower cervical/upper thoracic wound with wound VAC: vancomycin 1250mg IV Q24H thru 08/12/24 and Ariel 1 packet PO daily. Pharmacy to monitor vancomycin. Dr. Ledbetter and Dr. Olivera consulted. Please continue to monitor for S/S of infection and surgery cultures. 4. Hypertension: metoprolol tartrate 50mg PO BID and amlodipine 10mg PO daily. Please continue to monitor BP (last 119/67), HR (last 66) and swelling. 5. DVT/PE: apixaban 5mg PO BID. Please continue to monitor for S/S of bleeding/VTE and hemoglobin (last 9.5g/dL). 6. Herpes Zoster prophylaxis: acyclovir 400mg PO Q12. Please continue to monitor for S/S of herpes zoster, rash and renal function. 7. Muscle spasm: baclofen 5mg PO BID. Please continue to monitor for muscle spasms, hypotonia and drowsiness. 8. Hypothyroidism: levothyroxine 100mcg PO daily. Please continue to monitor TSH (last 07/04/24), T4 (last 01/13/24) and S/S of hypo/hyperthyroidism. 9. GERD: pantoprazole 20mg PO daily. Please continue to monitor for S/S of GERD, diarrhea (BEERs medication) and magnesium (last 1.6mg/dL 06/29/24). 10. Insomnia: melatonin 6mg PO QHS. Please continue to monitor for excessive drowsiness. 11. Gas: simethicone 80mg PO TID PRN abdominal distention. Resident has not used any PRN doses. Please continue to monitor for gas and PRN usage. 12. Iron deficiency anemia: ferrous sulfate 325mg PO daily. Please continue to monitor hemoglobin (last 9.5g/dL), dark stools, constipation and iron studies (last 06/20/24). 13. Cough: benzonatate 200mg PO TID PRN cough. No PRN doses have been given. Please continue to monitor for PRN usage and cough. 14. Hypomagnesemia and calcium/vitamin C/vitamin D deficiencies: magnesium chloride 128mg PO daily, calcium 500mg PO DAILYCM, cholecalciferol 125mcg PO daily and ascorbic acid 1000mg PO BID. Please continue to monitor calcium (last 8.8mg/dL), magnesium (last 06/29/24) and vitamin D (last 01/13/24). Assessment/Plan for indications treated with psychotropic medications: 1. Neuropathic pain: gabapentin 100mg PO TID. GDR not appropriate at this time as this medication is being used for neuropathic pain. Please continue to monitor for S/S of confusion, falls/fractures (BEERs medication) and renal function. Medical chart and medication regimen reviewed. The following medication irregularities or issues were identified: None Date Date of Note:: 07/11/24 Documented by User: Dr. Burt Kaba MD 07/11/24 09:26 TCU RX Drug Regimen Review Provider Comments Provider responsibility Provider Comments to Recommendations by Pharmacy: Agree
[2024-07-11] MEDS: Tuberculin,Purif.prot.deriv. 50 TU/ML Vial 0.1 ML ID (10:06)
--- NOTE | 2024-07-11 10:38 | PCM.PN.ID ---
Physical Exam Narrative Feeling well, no fever, no n/v/d. Wound vac and picc in place, now at TCU. Const alert and no apparent distress General Appearance: cooperative Resp normal air movement and clear to auscultation bilaterally Cardio regular rate and regular rhythm GI soft to palpation, non-tender and non-distended Skin no rashes or lesions noted Skin Narrative: wound vac in place ID ID: Route of nutrition/ use of supplements: [] Nutritional Intake: [] IV Site: [] Humphries Catheter: [] Assessment & Plan Assessment/Plan (1) Osteomyelitis of thoracic spine: PLAN: wound cx with MRSA and GPR (MRSA pcr positive), seen by plastic surgery and spine surgery, OR 06/26/24 for I&D down to hardware. On vanc. ucx with small growth enterococcus. Surg cx 06/26 with S lugdunensus and S. epi. Plan is for 6 weeks iv vanc dosed through port, stop date 08/12/24 with weekly labs. May need longer course of suppression po abx once IV is complete. Will follow, thank you
--- NOTE | 2024-07-11 11:11 | CASEMGMT ---
Addendum entered by Varsha Gardner 07/11/24 11:14: SW sent H&P and ID notes to [facility] via [employer]. Original Note: Social Work SW met with patient to complete initial assessment. Introduced self and role. Verified contacts. Pt confirmed code status as full code. Educated to Medicare benefit and encouraged to contact secondary insurance to ensure copay coverage given pt will remain until IV ATBs are completed on 08/12. Pt expressed understanding. Pt will return to [facility] once IV ATB are completed. SW to follow wound care/wound vac to ensure return. Pt is also pausing cancer treatment and visits during TCU stay. Will continue to follow for DC planning assistance. Varsha Gardner, [employer]
[2024-07-11 11:15] VITALS: BP 115/65; PULSE 66; RESP 18; TEMP 36.6; O2SAT 96
[2024-07-11] MEDS: Magnesium Chloride 64 MG Delay Rel.Tablet 128 MG PO (12:24)
[2024-07-11] MEDS: Ensure Plus High Protein 120 ML LIQUID PO ×2 (12:24→17:25)
--- NOTE | 2024-07-11 14:46 | CHAPLAIN ---
Type of Pastoral Visit ___ Initial Visit _x__ Follow-up Visit ___ On-call Visit ___ General Patient Visit ___ Spiritual Assessment ___ Family Conference ___ Bereavement ___ Rapid Response ___ Code Blue ___ Other (describe below) Pastoral Care Referral From _x__ Patient ___ Family ___ Nurse ___ Physician ___ Manager Mobility ___ Structural Steel Worker Helper ___ Other (describe below) Sacrament/Intervention ___ Active listening ___ Anointing ___ Protestant ___ Bereavement ___ Communion ___ Hannah exploration ___ ___ Life review ___ Prayer ___ Reconciliation ___ Sacrament of Sick _x__ Supportive presence ___ Wedding ___ Other (describe below) Pastoral Comments patient was seen previously in PCU; pt is on the schedule to have therapy very soon but this duplicate maker saw him sitting alone in his room; offered patient support; asked pt how he was feeling and how he was coping with his situation; pt states and repeats that I am fine ; this duplicate maker did not pursue further intervention due to patient being adamant about his answer of declining spiritual care suppor
[2024-07-11 16:38] VITALS: BMI 28.5
[2024-07-11] MEDS: Vancomycin HCl 1,250 MG in 0.9% Normal Saline (250mL Bag) 250 ML 167 MG IV (17:43)
[2024-07-11] MEDS: 0.9% Saline Lock 10 ML Syringe IV (17:44)
[2024-07-11] MEDS: MELATONIN 3 MG TABLET 6 MG PO (22:09)
[2024-07-11 22:10] VITALS: BP 111/59; PULSE 63
[2024-07-12] MEDS: Ensure Plus High Protein 120 ML LIQUID PO (05:40)
[2024-07-12] MEDS: Gabapentin 100 MG Capsule PO ×3 (05:40→21:55)
[2024-07-12] MEDS: Levothyroxine 100 MCG Tablet PO (05:40)
--- NOTE | 2024-07-12 07:49 | NURSING ---
Surgeon at bedside to see patient. Updated RN to pass along to nursing staff to make sure drain lines are being milked. Nurse will pass along to nursing staff.
[2024-07-12 09:44] VITALS: BP 106/66; PULSE 62; RESP 16; TEMP 36.6; O2SAT 97
[2024-07-12] MEDS: Ferrous Sulfate 325 MG Tablet PO (09:46)
[2024-07-12] MEDS: Calcium (Elemental) 500 MG Tablet PO ×2 (09:47→17:40)
[2024-07-12] MEDS: Menthol/Lanolin/Calamine/Znox 113 GM Tube 1 APPLIC TOPICAL ×2 (09:47→21:58)
[2024-07-12] MEDS: APIXABAN 5 MG TABLET PO ×2 (09:47→21:54)
[2024-07-12 09:48] VITALS: PULSE 62
[2024-07-12] MEDS: Baclofen 10 MG Tablet 5 MG PO ×2 (09:48→21:54)
[2024-07-12] MEDS: Metoprolol Tartrate 50 MG Tablet PO ×2 (09:48→21:55)
[2024-07-12] MEDS: Juven (unflavored) Packet 1 PACKET PO (09:48)
[2024-07-12] MEDS: Cholecalciferol (Vit D3) 125 MCG CAPSULE (5,000 UNITS) PO (09:49)
[2024-07-12] MEDS: amLODIPine 10 MG Tablet PO (09:49)
[2024-07-12] MEDS: Senna/Docusate Sodium 1 Tablet PO ×2 (09:49→21:55)
[2024-07-12] MEDS: Nystatin Powder 15gm Bottle 1 APPLIC TOPICAL ×2 (09:49→21:58)
[2024-07-12] MEDS: Pantoprazole Sodium 20 MG Tablet PO (09:49)
[2024-07-12] MEDS: Polyethylene Glycol 3350 17 GM PACKET PO (09:49)
[2024-07-12] MEDS: Ascorbic Acid 500 MG Tablet 1000 MG PO ×2 (09:49→21:55)
[2024-07-12] MEDS: Acyclovir 200 MG Capsule 400 MG PO ×2 (09:50→21:56)
[2024-07-12] MEDS: 0.9 % NaCl (Sterile) Posiflush 10 mL IV ×2 (09:58→18:12)
--- NOTE | 2024-07-12 11:39 | NURSING ---
Senior Product Integrity Engineer Note; Activity Asset: Ham Acuna is independent in his choice of daily activities. He prefers in room independent activities over group. He has his word puzzle book and smartphone he uses for games or internet and talking w/family. He would like the newspaper when it available and will watch tv. Staff will remind him of weekly activities and respect his right to say no.
--- NOTE | 2024-07-12 13:00 | WOUNDNOTE ---
Pt has been doing well staying off back. pt has been resting side to side. continues on low air loss mattress.
[2024-07-12] MEDS: Magnesium Chloride 64 MG Delay Rel.Tablet 128 MG PO (13:35)
--- NOTE | 2024-07-12 14:39 | PCM.PN.SRG ---
Subjective Subjective Doing well overall today. Transitioned to the transitional care unit. No subjective fevers/chills. No tearing or ripping sensations. He reports good pain control and good drain care by the nursing staff. Compliant with pressure offloading. Objective Data Objective Data Vital Signs: Vital Signs Temp Pulse Resp BP Pulse Ox O2 Del Method 97.9 F 62 16 106/66 97 Room Air 07/12/24 09:44 07/12/24 09:48 07/12/24 09:44 07/12/24 09:44 07/12/24 09:44 07/12/24 09:44 Oxygen Delivery Method Room Air Weight: 171 lb 4.8 oz Body Mass Index (BMI) 28.5 Intake & Output: Intake and Output for Last 24 Hours 07/10/24 07/11/24 07/12/24 23:59 23:59 23:59 Intake Total 533.5 / 533.5 1595 / 1595 480 / 480 Output Total 540 / 540 3757 / 3757 1180 / 1180 Balance -6.5 / -6.5 -2162 / -2162 -700 / -700 Medical Nutrition Assessment Dietitian: Malnutrition Criteria Met Start: 07/12/24 13:04 Freq: Status: Active Protocol: Document 07/12/24 13:05 SLA (Rec: 07/12/24 13:05 SLA [email or web address]) Nutrition Malnutrition Evidence of Malnutrition Exists Yes Malnutrition (severe): Acute Illness/Injury Evidenced By Suboptimal Energy Intake ( Severe),Weight Loss (Severe) Intake Problem Increased Nutrient Needs (specify) Etiology protein related to skin status Signs/Symptoms as evidenced by spinal wound w / wound vac Status Active Problem Clinical Problem Acute Disease or Injury Related Malnutrition Etiology related to inadequate oral energy intake Signs/Symptoms as evidenced by 4.9% unintentional wt loss and po intake 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 Lab / Micro Data 07/11/24 05:20 07/11/24 05:20 Micro: Microbiology 07/11/24 06:00 Nasal Secretion SARS-CoV-2 Antigen (Rapid) - Final Physical Exam Narrative No excessive tightness of the skin. incisional VAC in place.Pressure offloading bed in the TCU Drains are SS . Appropriate output (25 and 30 cc from past 24 hours, they strip well without clot and are working well) Const alert and oriented x3 General Appearance: cooperative Orientation / Consciousness: awake, oriented to person, oriented to place and oriented to time HEENT normocephalic Eyes EOMs intact bilaterally Neck full ROM Chest inspection of chest normal Resp normal respiratory effort Resp Narrative: Able to do 1,000 ml on the IS for me this morning (induced some coughing) Cardio regular rate Extremity normal to inspection Extremity Narrative: No excessive lower extremity swelling. SCDs on and activated. Assessment & Plan Assessment/Plan (1) Open wound of tissue overlying spine: QUALIFIERS: Encounter type: initial encounter Laterality: unspecified laterality Qualified Code(s): S21.209A - Unspecified open wound of unspecified back wall of thorax without penetration into thoracic cavity, initial encounter (2) Radiation adverse effect: QUALIFIERS: Encounter type: sequela Qualified Code(s): T66.XXXS - Radiation sickness, unspecified, sequela PLAN: Plan Post-op day 8 from spinal wound closure. Expected course thus far. Incisional VAC removed and replaced today. Infectious Disease following (long-term Vancomycin for Enterococcus and Staph). Negative cultures from subsequent debridement after initial debridement and no evidence of malignancy on pathologist's evaluation of the wound edges. Continue pressure offloading (only laying on sides, pressure offloading bed should continue). No pressure on the closure. Continue PT, OK to walk with PT with walker, but no extreme/major shoulder abduction (discussed with patient). Continue to promote high protein intake for improved wound healing (continue nutrition consult). Weekly nutrition labs. Discussed again with patient today. Anticipate VAC removal from incision on 17 Jul 2024 to check the incision. PSU will continue to follow. Keep the drains for now. Charges/Coding Procedures Integumentary 111xxx-113xx: 55216 Global Visit
[2024-07-12] MEDS: Vancomycin HCl 1,250 MG in 0.9% Normal Saline (250mL Bag) 250 ML 167 MG IV (18:11)
[2024-07-12 21:55] VITALS: BP 107/65; PULSE 60
[2024-07-12] MEDS: MELATONIN 3 MG TABLET 6 MG PO (21:55)
[2024-07-12 22:00] VITALS: PULSE 60; O2SAT 95
[2024-07-12] MEDS: 0.9% Saline Lock 10 ML Syringe IV (22:19)
[2024-07-13] MEDS: Gabapentin 100 MG Capsule PO ×3 (06:38→23:31)
[2024-07-13] MEDS: Levothyroxine 100 MCG Tablet PO (06:38)
[2024-07-13] MEDS: Ensure Plus High Protein 120 ML LIQUID PO (06:38)
[2024-07-13] MEDS: Calcium (Elemental) 500 MG Tablet PO ×2 (08:30→18:01)
[2024-07-13 08:31] VITALS: BP 116/63; PULSE 61
[2024-07-13] MEDS: Baclofen 10 MG Tablet 5 MG PO ×2 (08:31→23:22)
[2024-07-13] MEDS: Metoprolol Tartrate 50 MG Tablet PO ×2 (08:31→23:23)
[2024-07-13] MEDS: APIXABAN 5 MG TABLET PO ×2 (08:31→23:22)
[2024-07-13] MEDS: Pantoprazole Sodium 20 MG Tablet PO (08:32)
[2024-07-13] MEDS: Ferrous Sulfate 325 MG Tablet PO (08:32)
[2024-07-13] MEDS: amLODIPine 10 MG Tablet PO (08:32)
[2024-07-13] MEDS: Polyethylene Glycol 3350 17 GM PACKET PO (08:32)
[2024-07-13] MEDS: Senna/Docusate Sodium 1 Tablet PO ×2 (08:32→23:26)
[2024-07-13] MEDS: Ascorbic Acid 500 MG Tablet 1000 MG PO ×2 (08:32→23:26)
[2024-07-13] MEDS: Acyclovir 200 MG Capsule 400 MG PO ×2 (08:33→23:27)
[2024-07-13] MEDS: Cholecalciferol (Vit D3) 125 MCG CAPSULE (5,000 UNITS) PO (08:33)
[2024-07-13] MEDS: Menthol/Lanolin/Calamine/Znox 113 GM Tube 1 APPLIC TOPICAL ×2 (08:35→23:20)
[2024-07-13] MEDS: Nystatin Powder 15gm Bottle 1 APPLIC TOPICAL ×2 (08:36→23:25)
[2024-07-13 11:47] VITALS: BP 116/63; PULSE 70; RESP 18; TEMP 36.6; O2SAT 100
[2024-07-13] MEDS: Magnesium Chloride 64 MG Delay Rel.Tablet 128 MG PO (13:42)
--- NOTE | 2024-07-13 15:39 | NURSING ---
Called and spoke with Anika at [facility] On[facility] regarding patients chemo injection. Explained that prior to patients admission to TCU, there was a conversation regarding this medication. If patient and family wanted to continue the injections, TCU could not accept the patient. The patient and their family agreed prior to admission that the patient would not be receiving any injections. If the Nurse Practitioner is adamant about the need for the injection and the patient requests it, please note that the patient will need to discharge to another facility to receive the medication.
--- NOTE | 2024-07-13 15:48 | NURSING ---
Called and spoke with Anika at [facility]. Explained that prior to the patient being accepted to the TCU unit, it was discussed with the patient and family that if he were to admit he could not recieve any injections while admitted to TCU. As discussed, the patient and their family agreed prior to admission that the patient would not be receiving any injections. If the Nurse Practitioner is adamant about the need for the injection and the patient requests it, please note that the patient will need to discharge to another facility to receive the medication. Layne Urbina, Director also aware.
[2024-07-13 19:15] LABS: Vancomycin, Trough Level 17.3 ug/mL (5.0-15.0)
--- NOTE | 2024-07-13 19:26 | PCM.RX.CS ---
Consult Antibiotic Management Pharmacy has been consulted to manage selected antibiotic: Vancomycin Type of Intervention Type of Consult: Follow-up Suspected Infection Suspected Infection: Other (wound) Prior Doses of Antibiotics Prior Doses of Antibiotics Received/Current Regimen: Vancomycin 1250 mg Q24H last dose given 07/12/24 @ 1811 Labs Labs: Sodium 138 mmol/L (136-145) 07/11/24 05:20 Potassium 4.2 mmol/L (3.5-5.1) 07/11/24 05:20 Chloride 105 mmol/L (98-107) 07/11/24 05:20 Carbon Dioxide 28.0 mmol/L (21.0-32.0) 07/11/24 05:20 Anion Gap 5 (5-15) 07/11/24 05:20 BUN 34 mg/dL (7-18) H 07/11/24 05:20 Creatinine 1.29 mg/dL (0.70-1.30) 07/11/24 05:20 Est GFR (MDRD) Af Amer 71 mL/min (>60) 07/11/24 05:20 Est GFR (MDRD) Non-Af 59 mL/min (>60) L 07/11/24 05:20 BUN/Creatinine Ratio 26.4 RATIO (10-20) H 07/11/24 05:20 Glucose 107 mg/dL (74-106) H 07/11/24 05:20 Vancomycin Trough 17.3 ug/mL (5.0-15.0) H 07/13/24 18:29 Microbiology Microbiology: Microbiology 07/11/24 06:00 Nasal Secretion SARS-CoV-2 Antigen (Rapid) - Final Dosing Weight Weight used for dosin kg Estimated Creatinine Clearance Estimated Creatinine Clearance: ~ 55 Goal Trough Goal Trough: 15-20 mcg/mL Pharmacy Plan for Drug Dosing Pharmacy Plan for Drug Dosing: Vancomycin trough = 17.3, continue current dosing, trough in 5 days Pharmacy Service will continue to monitor and adjust dosing as required. Follow-Up Labs Follow-Up Labs: Trough: Vancomycin Date/Time Labs Ordered Labs to be done on [date and time ordered]: 07/18/24 @ 1831
[2024-07-13] MEDS: Vancomycin HCl 1,250 MG in 0.9% Normal Saline (250mL Bag) 250 ML 167 MG IV (19:42)
[2024-07-13] MEDS: 0.9 % NaCl (Sterile) Posiflush 10 mL IV (19:42)
[2024-07-13] MEDS: Vancomycin Trough/Random Due 1 LAB MC (19:48)
--- NOTE | 2024-07-13 19:49 | NURSING ---
35ml total of serosanguineous drainage from both DARBY drains.
[2024-07-13] MEDS: 0.9% Saline Lock 10 ML Syringe IV (21:43)
[2024-07-13 23:15] VITALS: BP 113/58; PULSE 61
[2024-07-13 23:23] VITALS: BP 113/58; PULSE 61
[2024-07-13] MEDS: MELATONIN 3 MG TABLET 6 MG PO (23:25)
[2024-07-14] MEDS: Levothyroxine 100 MCG Tablet PO (05:42)
[2024-07-14] MEDS: Gabapentin 100 MG Capsule PO ×3 (05:42→22:20)
[2024-07-14 06:49] VITALS: O2SAT 98
[2024-07-14] MEDS: Pantoprazole Sodium 20 MG Tablet PO (09:09)
[2024-07-14] MEDS: Ferrous Sulfate 325 MG Tablet PO (09:09)
[2024-07-14] MEDS: Cholecalciferol (Vit D3) 125 MCG CAPSULE (5,000 UNITS) PO (09:09)
[2024-07-14] MEDS: Senna/Docusate Sodium 1 Tablet PO ×2 (09:10→22:03)
[2024-07-14] MEDS: Acyclovir 200 MG Capsule 400 MG PO ×2 (09:10→22:04)
[2024-07-14] MEDS: Ascorbic Acid 500 MG Tablet 1000 MG PO ×2 (09:11→22:04)
[2024-07-14] MEDS: amLODIPine 10 MG Tablet PO (09:11)
[2024-07-14] MEDS: APIXABAN 5 MG TABLET PO ×2 (09:12→22:01)
[2024-07-14] MEDS: Calcium (Elemental) 500 MG Tablet PO ×2 (09:12→18:08)
[2024-07-14] MEDS: Nystatin Powder 15gm Bottle 1 APPLIC TOPICAL ×2 (09:12→21:59)
[2024-07-14] MEDS: Baclofen 10 MG Tablet 5 MG PO ×2 (09:12→22:02)
[2024-07-14] MEDS: Polyethylene Glycol 3350 17 GM PACKET PO (09:13)
[2024-07-14] MEDS: Menthol/Lanolin/Calamine/Znox 113 GM Tube 1 APPLIC TOPICAL ×2 (09:13→21:59)
[2024-07-14 09:25] VITALS: BP 115/69; PULSE 62
[2024-07-14] MEDS: Metoprolol Tartrate 50 MG Tablet PO ×2 (09:25→22:02)
--- NOTE | 2024-07-14 09:26 | PCM.PN.SRG ---
Subjective Subjective Doing well today.No tearing or ripping sensations. Has been working with PT and compliant with keeping arms in neutral position (no extreme shoulder abduction or extreme shoulder flexion). Objective Data Objective Data Vital Signs: Vital Signs Temp Pulse Resp BP Pulse Ox O2 Del Method 97.9 F 61 18 113/58 L 98 Room Air 07/13/24 11:47 07/13/24 23:23 07/13/24 11:47 07/13/24 23:23 07/14/24 06:49 07/14/24 06:49 Oxygen Delivery Method Room Air Weight: 171 lb 4.8 oz Body Mass Index (BMI) 28.5 Intake & Output: Intake and Output for Last 24 Hours 07/12/24 07/13/24 07/14/24 23:59 23:59 23:59 Intake Total 875 / 875 875 / 875 240 / 240 Output Total 1210 / 1210 4582 / 4582 875 / 875 Balance -335 / -335 -3707 / -3707 -635 / -635 Medical Nutrition Assessment Dietitian: Malnutrition Criteria Met Start: 07/12/24 13:04 Freq: Status: Active Protocol: Document 07/12/24 13:05 SLA (Rec: 07/12/24 13:05 SLA [email or web address]) Nutrition Malnutrition Evidence of Malnutrition Exists Yes Malnutrition (severe): Acute Illness/Injury Evidenced By Suboptimal Energy Intake ( Severe),Weight Loss (Severe) Intake Problem Increased Nutrient Needs (specify) Etiology protein related to skin status Signs/Symptoms as evidenced by spinal wound w / wound vac Status Active Problem Clinical Problem Acute Disease or Injury Related Malnutrition Etiology related to inadequate oral energy intake Signs/Symptoms as evidenced by 4.9% unintentional wt loss and po intake 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 Lab / Micro Data 07/11/24 05:20 07/11/24 05:20 Labs: Laboratory Results - last 24 hr 07/13/24 18:29: Vancomycin Trough 17.3 H Micro: Microbiology 07/11/24 06:00 Nasal Secretion SARS-CoV-2 Antigen (Rapid) - Final Physical Exam Narrative No excessive tightness of the skin. incisional VAC in place.Pressure offloading bed in the TCU Drains are SS . Appropriate output (22 and 10 cc from past 24 hours, they strip well without clot and are working well) Const alert and oriented x3 General Appearance: cooperative Orientation / Consciousness: awake, oriented to person, oriented to place and oriented to time HEENT normocephalic Eyes EOMs intact bilaterally Neck full ROM Chest inspection of chest normal Resp normal respiratory effort Resp Narrative: Able to do 1,000 ml on the IS for me this morning (induced some coughing) Cardio regular rate Extremity normal to inspection Extremity Narrative: No excessive lower extremity swelling. SCDs on and activated. Assessment & Plan Assessment/Plan (1) Open wound of tissue overlying spine: QUALIFIERS: Encounter type: initial encounter Laterality: unspecified laterality Qualified Code(s): S21.209A - Unspecified open wound of unspecified back wall of thorax without penetration into thoracic cavity, initial encounter (2) Radiation adverse effect: QUALIFIERS: Encounter type: sequela Qualified Code(s): T66.XXXS - Radiation sickness, unspecified, sequela PLAN: Plan Post-op day 10 from spinal wound closure. Expected course thus far. Incisional VAC removed and replaced today. Infectious Disease following (long-term Vancomycin for Enterococcus and Staph). Negative cultures from subsequent debridement after initial debridement and no evidence of malignancy on pathologist's evaluation of the wound edges. Continue pressure offloading (only laying on sides, pressure offloading bed should continue). No pressure on the closure. Continue PT, OK to walk with PT with walker, but no extreme/major shoulder abduction or extreme shoulder flexion Continue to promote high protein intake for improved wound healing (continue nutrition consult). Weekly nutrition labs. Discussed again with patient today. Anticipate VAC removal from incision on 17 Jul 2024 to check the incision. PSU will continue to follow. Deeper drain (10 cc past 24 hours) was removed at bedside this morning. Charges/Coding Procedures Integumentary 111xxx-113xx: [id number] Global Visit
--- NOTE | 2024-07-14 10:25 | WOUNDNOTE ---
Had been in to assess the mid upper back VAC dressing with Dr Olivera. Good seal noted at 125mmHg low continuous suction. one of the DARBY drains was removed per Dr Olivera. cleansed site and pat dry. applied a new dry dressing and secured with tape. pt tolerated well. will plan for a VAC change Wednesday07/17/24 with the plan to remove and keep off after another week.
[2024-07-14] MEDS: Ensure Plus High Protein 120 ML LIQUID PO ×3 (11:05→22:01)
[2024-07-14] MEDS: Magnesium Chloride 64 MG Delay Rel.Tablet 128 MG PO (11:07)
[2024-07-14 15:06] VITALS: BP 115/62; PULSE 61; RESP 17; TEMP 36.2; O2SAT 97
[2024-07-14] MEDS: Vancomycin HCl 1,250 MG in 0.9% Normal Saline (250mL Bag) 250 ML 167 MG IV (18:12)
[2024-07-14] MEDS: 0.9 % NaCl (Sterile) Posiflush 10 mL IV (19:59)
[2024-07-14 21:57] VITALS: BP 114/63; PULSE 61
[2024-07-14 22:02] VITALS: BP 114/63; PULSE 61
[2024-07-14] MEDS: MELATONIN 3 MG TABLET 6 MG PO (22:03)
[2024-07-15] MEDS: Gabapentin 100 MG Capsule PO ×3 (05:51→21:42)
[2024-07-15] MEDS: Levothyroxine 100 MCG Tablet PO (05:51)
[2024-07-15] MEDS: Ensure Plus High Protein 120 ML LIQUID PO ×4 (05:53→21:40)
[2024-07-15] MEDS: Calcium (Elemental) 500 MG Tablet PO ×2 (08:30→17:23)
[2024-07-15] MEDS: Ferrous Sulfate 325 MG Tablet PO (08:30)
[2024-07-15 08:31] VITALS: PULSE 63
[2024-07-15] MEDS: Baclofen 10 MG Tablet 5 MG PO ×2 (08:31→21:40)
[2024-07-15] MEDS: Metoprolol Tartrate 50 MG Tablet PO ×2 (08:31→21:42)
[2024-07-15] MEDS: Menthol/Lanolin/Calamine/Znox 113 GM Tube 1 APPLIC TOPICAL ×2 (08:31→21:43)
[2024-07-15] MEDS: APIXABAN 5 MG TABLET PO ×2 (08:31→21:39)
[2024-07-15] MEDS: Polyethylene Glycol 3350 17 GM PACKET PO (08:32)
[2024-07-15] MEDS: amLODIPine 10 MG Tablet PO (08:32)
[2024-07-15] MEDS: Nystatin Powder 15gm Bottle 1 APPLIC TOPICAL ×2 (08:32→21:43)
[2024-07-15] MEDS: Cholecalciferol (Vit D3) 125 MCG CAPSULE (5,000 UNITS) PO (08:33)
[2024-07-15] MEDS: Senna/Docusate Sodium 1 Tablet PO ×2 (08:33→21:41)
[2024-07-15] MEDS: Acyclovir 200 MG Capsule 400 MG PO ×2 (08:33→21:41)
[2024-07-15] MEDS: Pantoprazole Sodium 20 MG Tablet PO (08:33)
[2024-07-15] MEDS: Ascorbic Acid 500 MG Tablet 1000 MG PO ×2 (08:33→21:42)
--- NOTE | 2024-07-15 09:10 | PCM.PN.SRG ---
Subjective Subjective Doing well. No ripping or tearing sensations on his back. Reports good drain care remaining drain and no issues since drain removal. Patient eating eggs on rounds today. Endorses a high-protein diet. Objective Data Objective Data Vital Signs: Vital Signs Temp Pulse Resp BP Pulse Ox O2 Del Method 97.1 F L 63 17 114/63 97 Room Air 07/14/24 15:06 07/15/24 08:31 07/14/24 15:06 07/14/24 22:02 07/14/24 15:06 07/14/24 16:58 Oxygen Delivery Method Room Air Weight: 171 lb 4.8 oz Body Mass Index (BMI) 28.5 Intake & Output: Intake and Output for Last 24 Hours 07/13/24 07/14/24 07/15/24 23:59 23:59 23:59 Intake Total 875 / 875 995 / 995 Output Total 4582 / 4582 2880 / 2880 750 / 750 Balance -3707 / -3707 -1885 / -1885 -750 / -750 Medical Nutrition Assessment Dietitian: Malnutrition Criteria Met Start: 07/12/24 13:04 Freq: Status: Active Protocol: Document 07/12/24 13:05 SLA (Rec: 07/12/24 13:05 SLA [email or web address]) Nutrition Malnutrition Evidence of Malnutrition Exists Yes Malnutrition (severe): Acute Illness/Injury Evidenced By Suboptimal Energy Intake ( Severe),Weight Loss (Severe) Intake Problem Increased Nutrient Needs (specify) Etiology protein related to skin status Signs/Symptoms as evidenced by spinal wound w / wound vac Status Active Problem Clinical Problem Acute Disease or Injury Related Malnutrition Etiology related to inadequate oral energy intake Signs/Symptoms as evidenced by 4.9% unintentional wt loss and po intake 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 Lab / Micro Data 07/11/24 05:20 07/11/24 05:20 Micro: Microbiology 07/11/24 06:00 Nasal Secretion SARS-CoV-2 Antigen (Rapid) - Final Physical Exam Narrative No excessive tightness of the skin. incisional VAC in place.Pressure offloading bed in the TCU Drains are SS . Appropriate output (30 cc from past 24 hours, the remaining drain strips well without clot and is working well) Const alert and oriented x3 General Appearance: cooperative Orientation / Consciousness: awake, oriented to person, oriented to place and oriented to time HEENT normocephalic Eyes EOMs intact bilaterally Neck full ROM Chest inspection of chest normal Resp normal respiratory effort Resp Narrative: Able to do 1,000 ml on the IS for me this morning (induced some coughing) Cardio regular rate Extremity normal to inspection Extremity Narrative: No excessive lower extremity swelling. SCDs on and activated. Assessment & Plan Assessment/Plan (1) Open wound of tissue overlying spine: QUALIFIERS: Encounter type: initial encounter Laterality: unspecified laterality Qualified Code(s): S21.209A - Unspecified open wound of unspecified back wall of thorax without penetration into thoracic cavity, initial encounter (2) Radiation adverse effect: QUALIFIERS: Encounter type: sequela Qualified Code(s): T66.XXXS - Radiation sickness, unspecified, sequela PLAN: Plan Post-op day 11 from spinal wound closure. Expected course thus far. Incisional VAC removed and replaced today. Infectious Disease following (long-term Vancomycin for Enterococcus and Staph). Negative cultures from subsequent debridement after initial debridement and no evidence of malignancy on pathologist's evaluation of the wound edges. Continue pressure offloading (only laying on sides, pressure offloading bed should continue). No pressure on the closure. Continue PT, OK to walk with PT with walker, but no extreme/major shoulder abduction or extreme shoulder flexion Continue to promote high protein intake for improved wound healing (continue nutrition consult). Weekly nutrition labs. Discussed again with patient today. Anticipate VAC removal from incision on 17 Jul 2024 to check the incision. PSU will continue to follow. Charges/Coding Procedures Integumentary 111xxx-113xx: [id number] Global Visit
[2024-07-15] MEDS: Magnesium Chloride 64 MG Delay Rel.Tablet 128 MG PO (11:54)
[2024-07-15 13:56] VITALS: BP 110/59; PULSE 63; RESP 18; TEMP 36.4; O2SAT 99
[2024-07-15] MEDS: Vancomycin HCl 1,250 MG in 0.9% Normal Saline (250mL Bag) 250 ML 167 MG IV (18:27)
[2024-07-15] MEDS: 0.9% Saline Lock 10 ML Syringe IV ×2 (18:30→20:17)
[2024-07-15 21:38] VITALS: BP 126/73; PULSE 61
[2024-07-15] MEDS: MELATONIN 3 MG TABLET 6 MG PO (21:41)
[2024-07-15 21:42] VITALS: PULSE 61
[2024-07-16] MEDS: Gabapentin 100 MG Capsule PO ×3 (05:32→21:27)
[2024-07-16] MEDS: Ensure Plus High Protein 120 ML LIQUID PO ×3 (05:32→21:17)
[2024-07-16] MEDS: Levothyroxine 100 MCG Tablet PO (05:32)
[2024-07-16] MEDS: amLODIPine 10 MG Tablet PO (08:13)
[2024-07-16] MEDS: Calcium (Elemental) 500 MG Tablet PO ×2 (08:13→17:24)
[2024-07-16] MEDS: APIXABAN 5 MG TABLET PO ×2 (08:13→21:17)
[2024-07-16] MEDS: Ferrous Sulfate 325 MG Tablet PO (08:13)
[2024-07-16] MEDS: Baclofen 10 MG Tablet 5 MG PO ×2 (08:13→21:17)
[2024-07-16] MEDS: Menthol/Lanolin/Calamine/Znox 113 GM Tube 1 APPLIC TOPICAL ×2 (08:13→21:17)
[2024-07-16] MEDS: Ascorbic Acid 500 MG Tablet 1000 MG PO ×2 (08:14→21:18)
[2024-07-16] MEDS: Polyethylene Glycol 3350 17 GM PACKET PO (08:14)
[2024-07-16] MEDS: Acyclovir 200 MG Capsule 400 MG PO ×2 (08:14→21:17)
[2024-07-16] MEDS: Cholecalciferol (Vit D3) 125 MCG CAPSULE (5,000 UNITS) PO (08:14)
[2024-07-16] MEDS: Pantoprazole Sodium 20 MG Tablet PO (08:14)
[2024-07-16] MEDS: Senna/Docusate Sodium 1 Tablet PO ×2 (08:14→21:18)
[2024-07-16] MEDS: Nystatin Powder 15gm Bottle 1 APPLIC TOPICAL ×2 (08:14→21:19)
[2024-07-16 08:15] VITALS: PULSE 60
[2024-07-16] MEDS: Metoprolol Tartrate 50 MG Tablet PO ×2 (08:15→21:19)
[2024-07-16 10:00] VITALS: BP 105/47; PULSE 60; RESP 16; TEMP 36.3; O2SAT 99
[2024-07-16] MEDS: Magnesium Chloride 64 MG Delay Rel.Tablet 128 MG PO (11:34)
[2024-07-16] MEDS: Vancomycin HCl 1,250 MG in 0.9% Normal Saline (250mL Bag) 250 ML 167 MG IV (18:00)
[2024-07-16] MEDS: 0.9 % NaCl (Sterile) Posiflush 10 mL IV (18:01)
[2024-07-16 21:15] VITALS: BP 120/70; PULSE 66
[2024-07-16 21:19] VITALS: PULSE 66
[2024-07-16] MEDS: MELATONIN 3 MG TABLET 6 MG PO (21:19)
[2024-07-16] MEDS: SimETHICONE 80 MG Chewable Tablet PO (21:27)
[2024-07-16] MEDS: Bisacodyl 10 MG Suppository RC (21:45)
[2024-07-17] MEDS: Gabapentin 100 MG Capsule PO ×3 (05:51→22:40)
[2024-07-17] MEDS: Ensure Plus High Protein 120 ML LIQUID PO ×4 (05:52→22:40)
[2024-07-17] MEDS: Levothyroxine 100 MCG Tablet PO (05:52)
[2024-07-17] MEDS: SimETHICONE 80 MG Chewable Tablet PO (05:57)
[2024-07-17] MEDS: Baclofen 10 MG Tablet 5 MG PO ×2 (08:35→22:33)
[2024-07-17] MEDS: Ascorbic Acid 500 MG Tablet 1000 MG PO ×2 (08:35→22:36)
[2024-07-17] MEDS: Polyethylene Glycol 3350 17 GM PACKET PO (08:35)
[2024-07-17] MEDS: amLODIPine 10 MG Tablet PO (08:35)
[2024-07-17] MEDS: Acyclovir 200 MG Capsule 400 MG PO ×2 (08:35→22:37)
[2024-07-17] MEDS: Cholecalciferol (Vit D3) 125 MCG CAPSULE (5,000 UNITS) PO (08:35)
[2024-07-17] MEDS: Pantoprazole Sodium 20 MG Tablet PO (08:35)
[2024-07-17] MEDS: Senna/Docusate Sodium 1 Tablet 2 TABLET PO ×2 (08:35→22:35)
[2024-07-17 08:36] VITALS: PULSE 55
[2024-07-17] MEDS: APIXABAN 5 MG TABLET PO ×2 (08:36→22:33)
[2024-07-17] MEDS: Metoprolol Tartrate 50 MG Tablet PO ×2 (08:36→22:35)
[2024-07-17] MEDS: Calcium (Elemental) 500 MG Tablet PO ×2 (08:36→16:50)
[2024-07-17] MEDS: Ferrous Sulfate 325 MG Tablet PO (08:36)
[2024-07-17] MEDS: Menthol/Lanolin/Calamine/Znox 113 GM Tube 1 APPLIC TOPICAL ×2 (08:39→22:41)
[2024-07-17] MEDS: Nystatin Powder 15gm Bottle 1 APPLIC TOPICAL ×2 (08:39→22:41)
--- NOTE | 2024-07-17 08:49 | NURSING ---
Restaurant Maintenance Technician Note; MDS for 07/17/2024 Complete
--- NOTE | 2024-07-17 11:27 | CASEMGMT ---
Social Work BIMS () and PHQ-2 () completed for MDS assessment. Varsha Gardner MSW [employer]
[2024-07-17] MEDS: Magnesium Chloride 64 MG Delay Rel.Tablet 128 MG PO (12:02)
[2024-07-17 14:29] VITALS: BP 106/62; PULSE 66; RESP 16; TEMP 36.3; O2SAT 98
--- NOTE | 2024-07-17 17:08 | PN.SURG_ITS ---
Subjective Subjective Doing well. No complaints today. No tearing or ripping. Objective Data Objective Data Vital Signs: Vital Signs Temp Pulse Resp BP Pulse Ox O2 Del Method 97.4 F L 66 16 106/62 98 Room Air 07/17/24 14:29 07/17/24 14:29 07/17/24 14:29 07/17/24 14:29 07/17/24 14:29 07/17/24 14:29 Oxygen Delivery Method Room Air Weight: 171 lb 4.8 oz Body Mass Index (BMI) 28.5 Intake & Output: Intake and Output for Last 24 Hours 07/15/24 07/16/24 07/17/24 23:59 23:59 23:59 Intake Total 875 / 875 1235 / 1235 120 / 120 Output Total 1685 / 1685 1540 / 1540 2680 / 2680 Balance -810 / -810 -305 / -305 -2560 / -2560 Medical Nutrition Assessment Dietitian: Malnutrition Criteria Met Start: 07/12/24 13:04 Freq: Status: Active Protocol: Document 07/12/24 13:05 SLA (Rec: 07/12/24 13:05 SLA [email or web address]) Nutrition Malnutrition Evidence of Malnutrition Exists Yes Malnutrition (severe): Acute Illness/Injury Evidenced By Suboptimal Energy Intake ( Severe),Weight Loss (Severe) Intake Problem Increased Nutrient Needs (specify) Etiology protein related to skin status Signs/Symptoms as evidenced by spinal wound w / wound vac Status Active Problem Clinical Problem Acute Disease or Injury Related Malnutrition Etiology related to inadequate oral energy intake Signs/Symptoms as evidenced by 4.9% unintentional wt loss and po 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 Lab / Micro Data 07/11/24 05:20 07/11/24 05:20 Micro: Microbiology 07/11/24 06:00 Nasal Secretion SARS-CoV-2 Antigen (Rapid) - Final Physical Exam Narrative VAC removed. Incision c/d/i. Drain SS. Assessment & Plan Assessment/Plan (1) Open wound of tissue overlying spine: QUALIFIERS: Encounter type: initial encounter Laterality: u nspecified laterality Qualified Code(s): S21.209A - Unspecified open wound of unspecified back wall of thorax without penetration into thoracic cavity, initial encounter (2) Radiation adverse effect: QUALIFIERS: Encounter type: sequela Qualified Code(s): T66.XXXS - Radiation sickness, unspecified, sequela PLAN: Plan Post-op day 13 from spinal wound closure. Expected course thus far. Incisional VAC removed and replaced today. Infectious Disease following (long-term Vancomycin for Enterococcus and Staph). Negative cultures from subsequent debridement after initial debridement and no evidence of malignancy on pathologist's evaluation of the wound edges. Continue pressure offloading (only laying on sides, pressure offloading bed should continue). No pressure on the closure. Continue PT, OK to walk with PT with walker, but no extreme/major shoulder abduction or extreme shoulder flexion Continue to promote high protein intake for improved wound healing (continue nutrition consult). Weekly nutrition labs. Discussed again with patient today. Anticipate VAC removal from incision on 24 Jul 2024 to check the incision. PSU will continue to follow. Charges/Coding Procedures Integumentary 111xxx-113xx: [id number] Global Visit
[2024-07-17] MEDS: 0.9% Saline Lock 10 ML Syringe IV (18:34)
[2024-07-17] MEDS: Vancomycin HCl 1,250 MG in 0.9% Normal Saline (250mL Bag) 250 ML 167 MG IV (18:34)
[2024-07-17] MEDS: MELATONIN 3 MG TABLET 6 MG PO (22:34)
[2024-07-17 22:35] VITALS: BP 115/64; PULSE 83
[2024-07-18] MEDS: Levothyroxine 100 MCG Tablet PO (05:39)
[2024-07-18] MEDS: Ensure Plus High Protein 120 ML LIQUID PO ×4 (05:39→21:13)
[2024-07-18] MEDS: Gabapentin 100 MG Capsule PO ×3 (05:39→21:13)
[2024-07-18 05:52] LABS: Absolute Lymphocyte Count 0.46 X10^3/uL (0.83-4.51); Absolute Neutrophil Count 3.4 X10^3/uL (2.0-7.7); Basophil# 0.05 X10^3/uL; Basophil% 1.1 % (0-1); Eosinophil# 0.12 X10^3/uL; Eosinophils% 2.6 % (0-5); Hematocrit 30.6 % (40-54); Hemoglobin 9.8 g/dL (13.0-16.5); Lymphocyte # 0.46 X10^3/ul (0.83-4.51); Lymphocyte % 10.1 % (19-41); Mean Corpuscular Hgb 28.9 pg (27.0-32.0); Mean Corpuscular Volume 90.3 fL (80-94); Monocyte# 0.51 X10^3/uL; Monocyte% 11.2 % (0-10); NRBC Flagged by Analyzer 0 % (0-5); Neutrophil # 3.38 X10^3/uL (2.7-7.7); Neutrophil % 74.3 % (47-70); POSITIVE DIFFERENTIAL YES; Platelet Count 223 K/mm3 (150-450); RBC Distribution Width CV 15.2 % (11.6-14.6); RBC Distribution Width SD 50.6 fl (35.1-43.9); Red Blood Count 3.39 M/mm3 (4.6-6.2); White Blood Count 4.6 K/mm3 (4.4-11.0)
[2024-07-18 06:21] LABS: Anion Gap 4 (5-15); BUN 41 mg/dL (7-18); BUN/Creat Ratio 35.3 RATIO (10-20); Calcium,Total 9.3 mg/dL (8.5-10.1); Chloride 106 mmol/L (98-107); Creatinine, Serum 1.16 mg/dL (0.70-1.30); EST Glomerular Filtration Rate 67 mL/min (>60); Est Glom Filt Rate - Afr Amer 81 mL/min (>60); Estimated Creatinine Clearance 59.42 ml/min; Glucose 102 mg/dL (74-106); Sodium Level 140 mmol/L (136-145)
[2024-07-18 06:42] LABS: Erythrocyte Sedimentation Rate 29 mm/hr (0-20)
[2024-07-18] MEDS: APIXABAN 5 MG TABLET PO ×2 (08:11→21:07)
[2024-07-18] MEDS: Ferrous Sulfate 325 MG Tablet PO (08:11)
[2024-07-18] MEDS: Calcium (Elemental) 500 MG Tablet PO ×2 (08:11→16:07)
[2024-07-18 08:12] VITALS: PULSE 55
[2024-07-18] MEDS: Metoprolol Tartrate 50 MG Tablet PO ×2 (08:12→21:09)
[2024-07-18] MEDS: Menthol/Lanolin/Calamine/Znox 113 GM Tube 1 APPLIC TOPICAL ×2 (08:12→21:06)
[2024-07-18] MEDS: Baclofen 10 MG Tablet 5 MG PO ×2 (08:12→21:08)
[2024-07-18] MEDS: amLODIPine 10 MG Tablet PO (08:13)
[2024-07-18] MEDS: Nystatin Powder 15gm Bottle 1 APPLIC TOPICAL ×2 (08:13→21:06)
[2024-07-18] MEDS: Pantoprazole Sodium 20 MG Tablet PO (08:13)
[2024-07-18] MEDS: Cholecalciferol (Vit D3) 125 MCG CAPSULE (5,000 UNITS) PO (08:13)
[2024-07-18] MEDS: Polyethylene Glycol 3350 17 GM PACKET PO (08:13)
[2024-07-18] MEDS: Ascorbic Acid 500 MG Tablet 1000 MG PO ×2 (08:13→21:10)
[2024-07-18] MEDS: Acyclovir 200 MG Capsule 400 MG PO ×2 (08:13→21:10)
[2024-07-18] MEDS: Senna/Docusate Sodium 1 Tablet 2 TABLET PO ×2 (08:13→21:10)
[2024-07-18 10:41] VITALS: BMI 28.8
[2024-07-18] MEDS: Tuberculin,Purif.prot.deriv. 50 TU/ML Vial 0.1 ML ID (10:44)
[2024-07-18] MEDS: Magnesium Chloride 64 MG Delay Rel.Tablet 128 MG PO (11:27)
[2024-07-18 13:21] VITALS: BP 101/52; PULSE 53; RESP 16; TEMP 36.7; O2SAT 97
[2024-07-18] MEDS: 0.9% Saline Lock 10 ML Syringe IV ×2 (15:10→19:30)
[2024-07-18 19:02] LABS: Vancomycin, Trough Level 15.2 ug/mL (5.0-15.0)
--- NOTE | 2024-07-18 19:12 | PCM.RX.CS ---
Consult Antibiotic Management Pharmacy has been consulted to manage selected antibiotic: Vancomycin Type of Intervention Type of Consult: Follow-up Prior Doses of Antibiotics Prior Doses of Antibiotics Received/Current Regimen: current dose is vanc 1250mg IV q24h Labs Labs: Sodium 140 mmol/L (136-145) 07/18/24 05:25 Potassium 4.0 mmol/L (3.5-5.1) 07/18/24 05:25 Chloride 106 mmol/L (98-107) 07/18/24 05:25 Carbon Dioxide 29.0 mmol/L (21.0-32.0) 07/18/24 05:25 Anion Gap 4 (5-15) L 07/18/24 05:25 BUN 41 mg/dL (7-18) H 07/18/24 05:25 Creatinine 1.16 mg/dL (0.70-1.30) 07/18/24 05:25 Est GFR (MDRD) Af Amer 81 mL/min (>60) 07/18/24 05:25 Est GFR (MDRD) Non-Af 67 mL/min (>60) 07/18/24 05:25 BUN/Creatinine Ratio 35.3 RATIO (10-20) H 07/18/24 05:25 Glucose 102 mg/dL (74-106) 07/18/24 05:25 Vancomycin Trough 15.2 ug/mL (5.0-15.0) H 07/18/24 18:32 Microbiology Microbiology: Microbiology 07/11/24 06:00 Nasal Secretion SARS-CoV-2 Antigen (Rapid) - Final Dosing Weight Weight used for dosin.6 kg Estimated Creatinine Clearance Estimated Creatinine Clearance: 59 ml/min Goal Trough Goal Trough: 15-20 mcg/mL Pharmacy Plan for Drug Dosing Pharmacy Plan for Drug Dosing: The vanc trough drawn at 18:32 today (24 hours after the most recent dose) was 15.2. This is in goal range so will keep same dose. Repeat a trough in 5 days. Pharmacy Service will continue to monitor and adjust dosing as required. Follow-Up Labs Follow-Up Labs: Trough: Vancomycin Date/Time Labs Ordered Labs to be done on [date and time ordered]: 07/23/24 18:30
[2024-07-18] MEDS: Vancomycin HCl 1,250 MG in 0.9% Normal Saline (250mL Bag) 250 ML 167 MG IV (19:36)
[2024-07-18 21:04] VITALS: BP 128/73; PULSE 69
[2024-07-18 21:09] VITALS: BP 128/73; PULSE 69
[2024-07-18] MEDS: MELATONIN 3 MG TABLET 6 MG PO (21:09)
[2024-07-19] MEDS: Levothyroxine 100 MCG Tablet PO (05:35)
[2024-07-19] MEDS: Gabapentin 100 MG Capsule PO ×3 (05:35→22:03)
[2024-07-19] MEDS: Ensure Plus High Protein 120 ML LIQUID PO ×3 (05:35→21:58)
[2024-07-19] MEDS: Polyethylene Glycol 3350 17 GM PACKET PO (09:06)
[2024-07-19 09:07] VITALS: BP 117/66; PULSE 61
[2024-07-19] MEDS: Ascorbic Acid 500 MG Tablet 1000 MG PO ×2 (09:07→22:00)
[2024-07-19] MEDS: Ferrous Sulfate 325 MG Tablet PO (09:07)
[2024-07-19] MEDS: Cholecalciferol (Vit D3) 125 MCG CAPSULE (5,000 UNITS) PO (09:07)
[2024-07-19] MEDS: Acyclovir 200 MG Capsule 400 MG PO ×2 (09:07→22:01)
[2024-07-19] MEDS: Pantoprazole Sodium 20 MG Tablet PO (09:07)
[2024-07-19] MEDS: amLODIPine 10 MG Tablet PO (09:07)
[2024-07-19] MEDS: Baclofen 10 MG Tablet 5 MG PO ×2 (09:07→21:58)
[2024-07-19] MEDS: Senna/Docusate Sodium 1 Tablet 2 TABLET PO ×2 (09:07→22:00)
[2024-07-19] MEDS: APIXABAN 5 MG TABLET PO ×2 (09:07→21:57)
[2024-07-19] MEDS: Metoprolol Tartrate 50 MG Tablet PO ×2 (09:07→21:59)
[2024-07-19] MEDS: Nystatin Powder 15gm Bottle 1 APPLIC TOPICAL ×2 (09:08→21:57)
[2024-07-19] MEDS: Menthol/Lanolin/Calamine/Znox 113 GM Tube 1 APPLIC TOPICAL ×2 (09:08→21:56)
[2024-07-19] MEDS: Calcium (Elemental) 500 MG Tablet PO ×2 (09:08→18:24)
[2024-07-19] MEDS: Magnesium Chloride 64 MG Delay Rel.Tablet 128 MG PO (11:56)
[2024-07-19] MEDS: 0.9% Saline Lock 10 ML Syringe IV ×3 (11:57→20:22)
--- NOTE | 2024-07-19 12:53 | PN.SURG_ITS ---
<Statement entered by Oren Olivera MD - 07/19/24 20:33> I have personally performed a face to face assessment of the patient and have reviewed the FREDI Note. Subjective Subjective Patient is doing well. Denies any complaints of pain. Objective Data Objective Data Patient sitting up in chair eating lunch. Vital Signs: Vital Signs Temp Pulse Resp BP Pulse Ox O2 Del Method 98.0 F 61 16 117/66 97 Room Air 07/18/24 13:21 07/19/24 09:07 07/18/24 13:21 07/19/24 09:07 07/18/24 13:21 07/18/24 13:21 Oxygen Delivery Method Room Air Weight: 173 lb 3.2 oz Body Mass Index (BMI) 28.8 Intake & Output: Intake and Output for Last 24 Hours 07/17/24 07/18/24 07/19/24 23:59 23:59 23:59 Intake Total 635 / 635 1235 / 1235 240 / 240 Output Total 2680 / 2680 3265 / 3265 1030 / 1030 Balance -2045 / -2044 -2029 / -2030 -790 / -790 Medical Nutrition Assessment Dietitian: Malnutrition Criteria Met Start: 07/12/24 13:04 Freq: Status: Active Protocol: Document 07/12/24 13:05 SLA (Rec: 07/12/24 13:05 SLA 10..25.7) Nutrition Malnutrition Evidence of Malnutrition Exists Yes Malnutrition (severe): Acute Illness/Injury Evidenced By Suboptimal Energy Intake ( Severe),Weight Loss (Severe) Intake Problem Increased Nutrient Needs (specify) Etiology protein related to skin status Signs/Symptoms as evidenced by spinal wound w / wound vac Status Active Problem Clinical Problem Acute Disease or Injury Related Malnutrition Etiology related to inadequate oral energy intake Signs/Symptoms as evidenced by 4.9% unintentional wt loss and po intake meeting <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 Lab / Micro Data Attestation: I reviewed the patient's lab results. 07/18/24 05:25 07/18/24 05:25 Labs: Laboratory Results - last 24 hr 07/18/24 18:32: Vancomycin Trough 15.2 H Micro: Microbiology 07/11/24 06:00 Nasal Secretion SARS-CoV-2 Antigen (Rapid) - Final Physical Exam Narrative VAC dressing in place to [address] Draining very light color of serosanguineous drainage. Const alert and oriented x3 General Appearance: cooperative HEENT normocephalic Eyes General Eye: normal appearance of both eyes Resp normal respiratory effort and normal air movement Effort and Inspection: able to speak in complete sentences Extremity full ROM Assessment & Plan Assessment/Plan (1) Open wound of tissue overlying spine: QUALIFIERS: Encounter type: initial encounter Laterality: u nspecified laterality Qualified Code(s): S21.209A - Unspecified open wound of unspecified back wall of thorax without penetration into thoracic cavity, initial encounter (2) Radiation adverse effect: QUALIFIERS: Encounter type: sequela Qualified Code(s): T66.XXXS - Radiation sickness, unspecified, sequela PLAN: Plan Post-op day 15 from spinal wound closure. Expected course thus far. Incisional VAC in place. Infectious Disease following (long-term Vancomycin for Enterococcus and Staph). Negative cultures from subsequent debridement after initial debridement and no evidence of malignancy on pathologist's evaluation of the wound edges. Continue pressure offloading (only laying on sides, pressure offloading bed should continue). No pressure on the closure. Continue PT, OK to walk with PT with walker, but no extreme/major shoulder abduction or extreme shoulder flexion Continue to promote high protein intake for improved wound healing (continue nutrition consult). Weekly nutrition labs. Discussed again with patient today. Anticipate VAC removal from incision on 24 Jul 2024 to check the incision. PSU will continue to follow. Discussed plan of care with Dr. Olivera.
--- NOTE | 2024-07-19 14:14 | CASEMGMT ---
Social Work IDT met with patient, for care plan meeting. Discussed patient's progress in PT/OT/SN. Educated to Medicare benefit. Provided sister with written communication on insurance process and copay coverage during stay. Pt is on IV ATB through 08/12, has wounds and wound vac, chronic vanegas, two DARBY drains. Pt plans to restart oncology visits and treatment after DC, once he returns to [facility]. SW to provide updated clinicals, specifically wound notes, to [place] closer to [place] to ensure return. [facility] is following pt for services at [place] as well. Sister did mention that pt's ultimate goal is return to the community in an apartment, and requests stair training and car tx training. SW will continue to follow for DC planning. SOLE Wiley
[2024-07-19 14:43] VITALS: BP 103/61; PULSE 56; RESP 16; TEMP 36.7; O2SAT 97
[2024-07-19] MEDS: Vancomycin HCl 1,250 MG in 0.9% Normal Saline (250mL Bag) 250 ML 167 MG IV (18:24)
[2024-07-19 20:00] VITALS: PULSE 64; O2SAT 98
[2024-07-19 21:55] VITALS: BP 113/67; PULSE 64
[2024-07-19 21:59] VITALS: BP 113/67; PULSE 64
[2024-07-19] MEDS: MELATONIN 3 MG TABLET 6 MG PO (21:59)
[2024-07-19] MEDS: SimETHICONE 80 MG Chewable Tablet PO (22:09)
[2024-07-20] MEDS: Levothyroxine 100 MCG Tablet PO (05:39)
[2024-07-20] MEDS: Gabapentin 100 MG Capsule PO ×3 (05:39→20:46)
[2024-07-20] MEDS: Ensure Plus High Protein 120 ML LIQUID PO ×2 (05:39→20:45)
[2024-07-20 06:36] VITALS: O2SAT 95
[2024-07-20] MEDS: Baclofen 10 MG Tablet 5 MG PO ×2 (08:31→20:45)
[2024-07-20] MEDS: Calcium (Elemental) 500 MG Tablet PO ×2 (08:31→16:59)
[2024-07-20 08:32] VITALS: BP 105/56; PULSE 65
[2024-07-20] MEDS: Acyclovir 200 MG Capsule 400 MG PO ×2 (08:32→20:47)
[2024-07-20] MEDS: amLODIPine 10 MG Tablet PO (08:32)
[2024-07-20] MEDS: Ascorbic Acid 500 MG Tablet 1000 MG PO ×2 (08:32→20:47)
[2024-07-20] MEDS: Pantoprazole Sodium 20 MG Tablet PO (08:32)
[2024-07-20] MEDS: Metoprolol Tartrate 50 MG Tablet PO ×2 (08:32→20:46)
[2024-07-20] MEDS: APIXABAN 5 MG TABLET PO ×2 (08:32→20:45)
[2024-07-20] MEDS: Cholecalciferol (Vit D3) 125 MCG CAPSULE (5,000 UNITS) PO (08:32)
[2024-07-20] MEDS: Ferrous Sulfate 325 MG Tablet PO (08:33)
[2024-07-20] MEDS: Polyethylene Glycol 3350 17 GM PACKET PO (08:33)
[2024-07-20] MEDS: Nystatin Powder 15gm Bottle 1 APPLIC TOPICAL ×2 (08:33→20:51)
[2024-07-20] MEDS: Senna/Docusate Sodium 1 Tablet 2 TABLET PO ×2 (08:33→20:46)
[2024-07-20] MEDS: Menthol/Lanolin/Calamine/Znox 113 GM Tube 1 APPLIC TOPICAL ×2 (08:33→20:51)
[2024-07-20 08:45] VITALS: BP 105/56; PULSE 65; RESP 16; TEMP 37.2; O2SAT 95
--- NOTE | 2024-07-20 08:47 | MDS.RN ---
Information for the MDS was obtained from review of the clinical record, interview of resident, staff, and direct observation of resident?s care.
[2024-07-20] MEDS: Magnesium Chloride 64 MG Delay Rel.Tablet 128 MG PO (13:19)
[2024-07-20 20:46] VITALS: BP 120/67; PULSE 66
[2024-07-20] MEDS: MELATONIN 3 MG TABLET 6 MG PO (20:46)
--- NOTE | 2024-07-20 21:00 | NURSING ---
DARBY drain emptied. 12ml of serosanguineous drainage removed.
[2024-07-20] MEDS: 0.9 % NaCl (Sterile) Posiflush 10 mL IV (21:27)
[2024-07-20] MEDS: SimETHICONE 80 MG Chewable Tablet PO (21:27)
[2024-07-20] MEDS: Vancomycin HCl 1,250 MG in 0.9% Normal Saline (250mL Bag) 250 ML 167 MG IV (21:28)
[2024-07-21] MEDS: Gabapentin 100 MG Capsule PO ×3 (06:31→21:13)
[2024-07-21] MEDS: Levothyroxine 100 MCG Tablet PO (06:31)
[2024-07-21] MEDS: Ensure Plus High Protein 120 ML LIQUID PO ×3 (06:34→21:13)
[2024-07-21 10:00] VITALS: BP 107/61; PULSE 63; RESP 17; TEMP 36.5; O2SAT 93
[2024-07-21] MEDS: Ferrous Sulfate 325 MG Tablet PO (10:01)
[2024-07-21] MEDS: Calcium (Elemental) 500 MG Tablet PO ×2 (10:01→17:14)
[2024-07-21 10:02] VITALS: PULSE 63
[2024-07-21] MEDS: Menthol/Lanolin/Calamine/Znox 113 GM Tube 1 APPLIC TOPICAL ×2 (10:02→23:27)
[2024-07-21] MEDS: Baclofen 10 MG Tablet 5 MG PO ×2 (10:02→21:22)
[2024-07-21] MEDS: Metoprolol Tartrate 50 MG Tablet PO ×2 (10:02→21:22)
[2024-07-21] MEDS: APIXABAN 5 MG TABLET PO ×2 (10:02→21:21)
[2024-07-21] MEDS: Senna/Docusate Sodium 1 Tablet 2 TABLET PO ×2 (10:03→21:21)
[2024-07-21] MEDS: Nystatin Powder 15gm Bottle 1 APPLIC TOPICAL ×2 (10:03→23:27)
[2024-07-21] MEDS: Pantoprazole Sodium 20 MG Tablet PO (10:03)
[2024-07-21] MEDS: Polyethylene Glycol 3350 17 GM PACKET PO (10:03)
[2024-07-21] MEDS: amLODIPine 10 MG Tablet PO (10:03)
[2024-07-21] MEDS: Acyclovir 200 MG Capsule 400 MG PO ×2 (10:04→21:22)
[2024-07-21] MEDS: Ascorbic Acid 500 MG Tablet 1000 MG PO ×2 (10:04→21:23)
[2024-07-21] MEDS: Cholecalciferol (Vit D3) 125 MCG CAPSULE (5,000 UNITS) PO (10:04)
[2024-07-21] MEDS: Magnesium Chloride 64 MG Delay Rel.Tablet 128 MG PO (13:08)
--- NOTE | 2024-07-21 13:16 | PN.SURG_ITS ---
<Statement entered by Oren Olivera MD - 07/24/24 18:32> Pt seen & evaluated w/FREDI. I personally interviewed & exam the pt. I was involved in all aspects of pt's orders, interpretation of results & treatment Subjective Subjective Postop #17 Patient sitting up in chair. He states he is doing well. He states he is having minimal discomfort. He states he is doing well with his therapy. Objective Data Objective Data Vital Signs: Vital Signs Temp Pulse Resp BP Pulse Ox O2 Del Method 97.7 F L 63 17 107/61 93 Room Air 07/21/24 10:00 07/21/24 10:02 07/21/24 10:00 07/21/24 10:00 07/21/24 10:00 07/21/24 10:00 Oxygen Delivery Method Room Air Weight: 173 lb 3.2 oz Body Mass Index (BMI) 28.8 Intake & Output: Intake and Output for Last 24 Hours 07/19/24 07/20/24 07/21/24 23:59 23:59 23:59 Intake Total 995 / 995 980 / 980 0 / 0 Output Total 1895 / 1895 3340 / 3340 1130 / 1130 Balance -900 / -900 -2360 / -2360 -1130 / -1130 Medical Nutrition Assessment Dietitian: Malnutrition Criteria Met Start: 07/12/24 13:04 Freq: Status: Active Protocol: Document 07/12/24 13:05 SLA (Rec: 07/12/24 13:05 SLA [id number]) Nutrition Malnutrition Evidence of Malnutrition Exists Yes Malnutrition (severe): Acute Illness/Injury Evidenced By Suboptimal Energy Intake ( Severe),Weight Loss (Severe) Intake Problem Increased Nutrient Needs (specify) Etiology protein related to skin status Signs/Symptoms as evidenced by spinal wound w / wound vac Status Active Problem Clinical Problem Acute Disease or Injury Related Malnutrition Etiology related to inadequate oral energy intake Signs/Symptoms as evidenced by 4.9% unintentional wt loss and po intake meeting <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 Lab / Micro Data 07/18/24 05:25 07/18/24 05:25 Micro: Microbiology 07/11/24 06:00 Nasal Secretion SARS-CoV-2 Antigen (Rapid) - Final Physical Exam Narrative VAC dressing in place to [address]. Draining very light color of serosanguineous drainage, averaging 40-60 ml in 24 hour period. Const alert and oriented x3 General Appearance: cooperative HEENT normocephalic Eyes General Eye: normal appearance of both eyes Resp normal respiratory effort and normal air movement Effort and Inspection: able to speak in complete sentences Extremity full ROM Assessment & Plan Assessment/Plan (1) Open wound of tissue overlying spine: QUALIFIERS: Encounter type: initial encounter Laterality: u nspecified laterality Qualified Code(s): S21.209A - Unspecified open wound of unspecified back wall of thorax without penetration into thoracic cavity, initial encounter (2) Radiation adverse effect: QUALIFIERS: Encounter type: sequela Qualified Code(s): T66.XXXS - Radiation sickness, unspecified, sequela PLAN: Plan Post-op day 17 from spinal wound closure. Expected course thus far. Incisional VAC in place. Infectious Disease following (long-term Vancomycin for Enterococcus and Staph, stop date 08/12/24). Negative cultures from subsequent debridement after initial debridement and no evidence of malignancy on pathologist's evaluation of the wound edges. Continue pressure offloading (only laying on sides, pressure offloading bed should continue). No pressure on the closure. Continue PT, OK to walk with PT with walker, but no extreme/major shoulder abduction or extreme shoulder flexion Continue to promote high protein intake for improved wound healing (continue nutrition consult). Weekly nutrition labs. Discussed again with patient today. He is receiving Ariel protein supplementation daily. Anticipate VAC removal from incision on 24 Jul 2024 to check the incision. PSU will continue to follow. Discussed plan of care with Dr. Olivera. Charges/Coding Procedures Integumentary [id number]: [id number] Global Visit
[2024-07-21] MEDS: 0.9 % NaCl (Sterile) Posiflush 10 mL IV (17:14)
[2024-07-21] MEDS: 0.9% Saline Lock 10 ML Syringe IV (21:13)
[2024-07-21] MEDS: Vancomycin HCl 1,250 MG in 0.9% Normal Saline (250mL Bag) 250 ML 167 MG IV (21:18)
[2024-07-21] MEDS: MELATONIN 3 MG TABLET 6 MG PO (21:21)
[2024-07-21 21:22] VITALS: BP 102/62; PULSE 64
[2024-07-21] MEDS: SimETHICONE 80 MG Chewable Tablet PO (21:26)
[2024-07-21 21:29] VITALS: BP 102/62; PULSE 64
[2024-07-22] MEDS: Ensure Plus High Protein 120 ML LIQUID PO ×3 (06:36→22:49)
[2024-07-22] MEDS: Levothyroxine 100 MCG Tablet PO (06:36)
[2024-07-22] MEDS: Gabapentin 100 MG Capsule PO ×3 (06:36→22:59)
[2024-07-22] MEDS: Ferrous Sulfate 325 MG Tablet PO (09:37)
[2024-07-22] MEDS: Calcium (Elemental) 500 MG Tablet PO ×2 (09:37→16:58)
[2024-07-22] MEDS: Acyclovir 200 MG Capsule 400 MG PO ×2 (09:38→22:56)
[2024-07-22] MEDS: Ascorbic Acid 500 MG Tablet 1000 MG PO ×2 (09:38→22:56)
[2024-07-22] MEDS: Cholecalciferol (Vit D3) 125 MCG CAPSULE (5,000 UNITS) PO (09:39)
[2024-07-22] MEDS: Senna/Docusate Sodium 1 Tablet 2 TABLET PO ×2 (09:39→22:55)
[2024-07-22] MEDS: Pantoprazole Sodium 20 MG Tablet PO (09:40)
[2024-07-22] MEDS: Polyethylene Glycol 3350 17 GM PACKET PO (09:41)
[2024-07-22] MEDS: APIXABAN 5 MG TABLET PO ×2 (09:42→22:50)
[2024-07-22] MEDS: amLODIPine 10 MG Tablet PO (09:42)
[2024-07-22] MEDS: Baclofen 10 MG Tablet 5 MG PO ×2 (09:43→22:50)
[2024-07-22] MEDS: Nystatin Powder 15gm Bottle 1 APPLIC TOPICAL ×2 (09:45→22:48)
[2024-07-22] MEDS: Menthol/Lanolin/Calamine/Znox 113 GM Tube 1 APPLIC TOPICAL ×2 (09:45→22:48)
[2024-07-22 10:46] VITALS: BP 100/53; PULSE 63
[2024-07-22] MEDS: Metoprolol Tartrate 50 MG Tablet PO ×2 (10:46→22:53)
[2024-07-22] MEDS: Magnesium Chloride 64 MG Delay Rel.Tablet 128 MG PO (11:29)
[2024-07-22] MEDS: COVID VAC 24-25 (12UP)(MODERNA)/PF 50 MCG/0.5 ML SYRINGE IM (15:14)
[2024-07-22 16:00] VITALS: BP 114/66; PULSE 62; RESP 14; RESP 16; TEMP 37; O2SAT 97
[2024-07-22] MEDS: Vancomycin HCl 1,250 MG in 0.9% Normal Saline (250mL Bag) 250 ML 167 MG IV (21:20)
[2024-07-22] MEDS: 0.9% Saline Lock 10 ML Syringe IV ×2 (21:21→23:36)
[2024-07-22 22:53] VITALS: BP 112/57; PULSE 64
[2024-07-22] MEDS: MELATONIN 3 MG TABLET 6 MG PO (22:55)
[2024-07-22 23:09] VITALS: BP 112/57; PULSE 64
[2024-07-23] MEDS: SimETHICONE 80 MG Chewable Tablet PO ×2 (00:30→23:50)
[2024-07-23] MEDS: Ensure Plus High Protein 120 ML LIQUID PO ×3 (06:14→21:02)
[2024-07-23] MEDS: Gabapentin 100 MG Capsule PO ×3 (06:14→20:55)
[2024-07-23] MEDS: Levothyroxine 100 MCG Tablet PO (06:14)
[2024-07-23 10:29] VITALS: BP 110/59; PULSE 63; RESP 18; TEMP 37.1; O2SAT 96
[2024-07-23] MEDS: Menthol/Lanolin/Calamine/Znox 113 GM Tube 1 APPLIC TOPICAL ×2 (10:34→20:48)
[2024-07-23] MEDS: Calcium (Elemental) 500 MG Tablet PO ×2 (10:34→17:14)
[2024-07-23] MEDS: Ferrous Sulfate 325 MG Tablet PO (10:34)
[2024-07-23 10:35] VITALS: PULSE 63
[2024-07-23] MEDS: Polyethylene Glycol 3350 17 GM PACKET PO (10:35)
[2024-07-23] MEDS: Baclofen 10 MG Tablet 5 MG PO ×2 (10:35→20:57)
[2024-07-23] MEDS: APIXABAN 5 MG TABLET PO ×2 (10:35→20:55)
[2024-07-23] MEDS: Metoprolol Tartrate 50 MG Tablet PO ×2 (10:35→20:56)
[2024-07-23] MEDS: Nystatin Powder 15gm Bottle 1 APPLIC TOPICAL ×2 (10:35→20:49)
[2024-07-23] MEDS: Cholecalciferol (Vit D3) 125 MCG CAPSULE (5,000 UNITS) PO (10:36)
[2024-07-23] MEDS: Pantoprazole Sodium 20 MG Tablet PO (10:36)
[2024-07-23] MEDS: Senna/Docusate Sodium 1 Tablet 2 TABLET PO ×2 (10:36→20:58)
[2024-07-23] MEDS: Ascorbic Acid 500 MG Tablet 1000 MG PO ×2 (10:36→20:58)
[2024-07-23] MEDS: amLODIPine 10 MG Tablet PO (10:36)
[2024-07-23] MEDS: Acyclovir 200 MG Capsule 400 MG PO ×2 (10:37→20:58)
[2024-07-23] MEDS: Magnesium Chloride 64 MG Delay Rel.Tablet 128 MG PO (13:04)
[2024-07-23] MEDS: Vancomycin Trough/Random Due 1 LAB MC (20:37)
[2024-07-23] MEDS: MELATONIN 3 MG TABLET 6 MG PO (20:55)
[2024-07-23 20:56] VITALS: BP 111/63; PULSE 68
[2024-07-23 20:58] LABS: Vancomycin, Trough Level 14.7 ug/mL (5.0-15.0)
[2024-07-23 21:00] VITALS: PULSE 74; O2SAT 96
[2024-07-23 21:05] VITALS: BP 111/63; PULSE 68; O2SAT 96
--- NOTE | 2024-07-23 21:08 | PCM.RX.CS ---
Consult Antibiotic Management Pharmacy has been consulted to manage selected antibiotic: Vancomycin Type of Intervention Type of Consult: Follow-up Suspected Infection Suspected Infection: Skin/Soft tissue Labs Labs: Sodium 140 mmol/L (136-145) 07/18/24 05:25 Potassium 4.0 mmol/L (3.5-5.1) 07/18/24 05:25 Chloride 106 mmol/L (98-107) 07/18/24 05:25 Carbon Dioxide 29.0 mmol/L (21.0-32.0) 07/18/24 05:25 Anion Gap 4 (5-15) L 07/18/24 05:25 BUN 41 mg/dL (7-18) H 07/18/24 05:25 Creatinine 1.16 mg/dL (0.70-1.30) 07/18/24 05:25 Est GFR (MDRD) Af Amer 81 mL/min (>60) 07/18/24 05:25 Est GFR (MDRD) Non-Af 67 mL/min (>60) 07/18/24 05:25 BUN/Creatinine Ratio 35.3 RATIO (10-20) H 07/18/24 05:25 Glucose 102 mg/dL (74-106) 07/18/24 05:25 Vancomycin Trough 14.7 ug/mL (5.0-15.0) 07/23/24 20:27 Microbiology Microbiology: Microbiology 07/11/24 06:00 Nasal Secretion SARS-CoV-2 Antigen (Rapid) - Final Goal Trough Goal Trough: 15-20 mcg/mL Pharmacy Plan for Drug Dosing Pharmacy Plan for Drug Dosing: VANCOMYCIN LEVEL RECEIVED Current Vancomycin Dose: 1250mg Q24H Number of Doses Received: numerous Vancomycin Level: 14.7 Hours Since Last Dose: 11 Renal Function: NNL Vancomycin Plan/Comments: Adjust Vancomycin dosing regimen to 1500mg Q24H based on SUBtherapeutic level Pending Level: Vancomycin trough @ 202907/26/24 Pharmacy Service will continue to monitor and adjust dosing as required. Follow-Up Labs Follow-Up Labs: Trough: Vancomycin (07/26/24 @ 20:30)
[2024-07-23] MEDS: 0.9 % NaCl (Sterile) Posiflush 10 mL IV (22:09)
[2024-07-23] MEDS: Vancomycin HCl 1,500 MG in 0.9% Normal Saline (500mL Bag) 500 ML 250 MG IV (22:09)
[2024-07-24] MEDS: Ensure Plus High Protein 120 ML LIQUID PO ×3 (06:04→21:33)
[2024-07-24] MEDS: Levothyroxine 100 MCG Tablet PO (06:04)
[2024-07-24] MEDS: Gabapentin 100 MG Capsule PO ×3 (06:04→21:33)
--- NOTE | 2024-07-24 06:35 | NURSING ---
Dr. Olivera in and removed wound vac, ABD placed over site, change daily. DARBY drain still in, Dr. Olivera will monitor DARBY outputs.
[2024-07-24 06:44] VITALS: PULSE 64; RESP 16; O2SAT 94
--- NOTE | 2024-07-24 07:09 | PCM.PN.SRG ---
Subjective Subjective Doing well overall. Compliant with positioning restrictions. No fevers or chills. Pain controlled. Objective Data Objective Data Vital Signs: Vital Signs Temp Pulse Resp BP Pulse Ox O2 Del Method 98.8 F 64 16 111/63 94 Room Air 07/23/24 10:29 07/24/24 06:44 07/24/24 06:44 07/23/24 21:05 07/24/24 06:44 07/24/24 06:44 Oxygen Delivery Method Room Air Weight: 173 lb 3.2 oz Body Mass Index (BMI) 28.8 Intake & Output: Intake and Output for Last 24 Hours 07/22/24 07/23/24 07/24/24 23:59 23:59 23:59 Intake Total 840 / 1115 1261.5 / 1261.5 530 / 530 Output Total 3155 / 3155 2190 / 2190 950 / 950 Balance -2315 / -2040 -928.5 / -928.5 -420 / -420 Medical Nutrition Assessment Dietitian: Malnutrition Criteria Met Start: 07/12/24 13:04 Freq: Status: Active Protocol: Document 07/12/24 13:05 SLA (Rec: 07/12/24 13:05 SLA [email or web address]) Nutrition Malnutrition Evidence of Malnutrition Exists Yes Malnutrition (severe): Acute Illness/Injury Evidenced By Suboptimal Energy Intake ( Severe),Weight Loss (Severe) Intake Problem Increased Nutrient Needs (specify) Etiology protein related to skin status Signs/Symptoms as evidenced by spinal wound w / wound vac Status Active Problem Clinical Problem Acute Disease or Injury Related Malnutrition Etiology related to inadequate oral energy intake Signs/Symptoms as evidenced by 4.9% unintentional wt loss and po intake meeting <75% 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 Lab / Micro Data 07/18/24 05:25 07/18/24 05:25 Labs: Laboratory Results - last 24 hr 07/23/24 20:27: Vancomycin Trough 14.7 Micro: Microbiology 07/11/24 06:00 Nasal Secretion SARS-CoV-2 Antigen (Rapid) - Final Physical Exam Narrative VAC removed. Incision c/d/i. No induration or drainage. Drain SS. 40 cc output last 24 hours. iNCN Assessment & Plan Assessment/Plan (1) Open wound of tissue overlying spine: QUALIFIERS: Encounter type: initial encounter Laterality: unspecified laterality Qualified Code(s): S21.209A - Unspecified open wound of unspecified back wall of thorax without penetration into thoracic cavity, initial encounter (2) Radiation adverse effect: QUALIFIERS: Encounter type: sequela Qualified Code(s): T66.XXXS - Radiation sickness, unspecified, sequela PLAN: Plan 3 Weeks post op spinal closure Expected course thus far. Incisional VAC removed today and dry dressing applied Infectious Disease following (long-term Vancomycin for Enterococcus and Staph). Negative cultures from subsequent debridement after initial debridement and no evidence of malignancy on pathologist's evaluation of the wound edges. Continue pressure offloading (only laying on sides, pressure offloading bed should continue). No pressure on the closure. Continue PT, OK to walk with PT with walker, but no extreme/major shoulder abduction or extreme shoulder flexion Continue to promote high protein intake for improved wound healing (continue nutrition consult). Weekly nutrition labs. Discussed again with patient today. PSU will continue to follow. Anticipate likely drain removal at bedside this week. Charges/Coding Multi Select Codes Musculoskeletal Musculoskeletal CPT Codes: Other Procedure See Report (post op global)
[2024-07-24 09:24] VITALS: BP 115/64; PULSE 68; RESP 18; TEMP 36.1; O2SAT 98
[2024-07-24] MEDS: Menthol/Lanolin/Calamine/Znox 113 GM Tube 1 APPLIC TOPICAL ×2 (09:26→21:37)
[2024-07-24] MEDS: APIXABAN 5 MG TABLET PO ×2 (09:26→21:35)
[2024-07-24] MEDS: Ferrous Sulfate 325 MG Tablet PO (09:26)
[2024-07-24] MEDS: Calcium (Elemental) 500 MG Tablet PO ×2 (09:26→16:49)
[2024-07-24 09:27] VITALS: PULSE 68
[2024-07-24] MEDS: Nystatin Powder 15gm Bottle 1 APPLIC TOPICAL ×2 (09:27→21:37)
[2024-07-24] MEDS: Polyethylene Glycol 3350 17 GM PACKET PO (09:27)
[2024-07-24] MEDS: Baclofen 10 MG Tablet 5 MG PO ×2 (09:27→21:37)
[2024-07-24] MEDS: Metoprolol Tartrate 50 MG Tablet PO ×2 (09:27→21:36)
[2024-07-24] MEDS: Senna/Docusate Sodium 1 Tablet 2 TABLET PO ×2 (09:28→21:36)
[2024-07-24] MEDS: Pantoprazole Sodium 20 MG Tablet PO (09:28)
[2024-07-24] MEDS: Ascorbic Acid 500 MG Tablet 1000 MG PO ×2 (09:28→21:35)
[2024-07-24] MEDS: amLODIPine 10 MG Tablet PO (09:28)
[2024-07-24] MEDS: Acyclovir 200 MG Capsule 400 MG PO ×2 (09:29→21:35)
[2024-07-24] MEDS: Hydrocortisone 2.5% Crm 1 APPLIC TOPICAL ×2 (09:32→16:57)
[2024-07-24] MEDS: Magnesium Chloride 64 MG Delay Rel.Tablet 128 MG PO (12:31)
[2024-07-24] MEDS: Cholecalciferol (Vit D3) 125 MCG CAPSULE (5,000 UNITS) PO (12:31)
[2024-07-24] MEDS: Pneumococcal Vaccine 20 Valent 0.5 ML Syringe IM (16:48)
[2024-07-24] MEDS: 0.9 % NaCl (Sterile) Posiflush 10 mL IV (16:49)
[2024-07-24] MEDS: 0.9% Saline Lock 10 ML Syringe IV (21:34)
[2024-07-24 21:36] VITALS: BP 113/67; PULSE 63
[2024-07-24] MEDS: MELATONIN 3 MG TABLET 6 MG PO (21:37)
[2024-07-24] MEDS: Vancomycin HCl 1,500 MG in 0.9% Normal Saline (500mL Bag) 500 ML 250 MG IV (21:46)
[2024-07-24] MEDS: SimETHICONE 80 MG Chewable Tablet PO (21:47)
[2024-07-24 21:59] VITALS: BP 113/67; PULSE 63
[2024-07-25 05:50] LABS: Absolute Neutrophil Count 2.6 X10^3/uL (2.0-7.7); Basophil# 0.02 X10^3/uL; Basophil% 0.6 % (0-1); Eosinophil# 0.08 X10^3/uL; Eosinophils% 2.2 % (0-5); Hematocrit 29.6 % (40-54); Hemoglobin 9.3 g/dL (13.0-16.5); Lymphocyte % 11.2 % (19-41); Mean Corp Hgb Conc 31.4 g/dL (32-36); Mean Corpuscular Hgb 28.5 pg (27.0-32.0); Mean Corpuscular Volume 90.8 fL (80-94); Monocyte# 0.45 X10^3/uL; Monocyte% 12.6 % (0-10); NRBC Flagged by Analyzer 0 % (0-5); Neutrophil # 2.61 X10^3/uL (2.7-7.7); Neutrophil % 73.1 % (47-70); POSITIVE DIFFERENTIAL YES; Platelet Count 156 K/mm3 (150-450); RBC Distribution Width CV 14.9 % (11.6-14.6); RBC Distribution Width SD 50.2 fl (35.1-43.9); Red Blood Count 3.26 M/mm3 (4.6-6.2); White Blood Count 3.6 K/mm3 (4.4-11.0)
[2024-07-25 06:20] LABS: Anion Gap 4 (5-15); BUN 38 mg/dL (7-18); BUN/Creat Ratio 35.5 RATIO (10-20); Calcium,Total 8.7 mg/dL (8.5-10.1); Chloride 108 mmol/L (98-107); Creatinine, Serum 1.07 mg/dL (0.70-1.30); EST Glomerular Filtration Rate 73 mL/min (>60); Est Glom Filt Rate - Afr Amer 89 mL/min (>60); Estimated Creatinine Clearance 64.74 ml/min; Glucose 97 mg/dL (74-106); Potassium 3.6 mmol/L (3.5-5.1); Sodium Level 140 mmol/L (136-145)
[2024-07-25 06:22] LABS: Erythrocyte Sedimentation Rate 25 mm/hr (0-20)
[2024-07-25] MEDS: Levothyroxine 100 MCG Tablet PO (06:31)
[2024-07-25] MEDS: Ensure Plus High Protein 120 ML LIQUID PO ×3 (06:31→21:28)
[2024-07-25] MEDS: Gabapentin 100 MG Capsule PO ×3 (06:31→21:29)
[2024-07-25 09:27] VITALS: PULSE 60
[2024-07-25] MEDS: Baclofen 10 MG Tablet 5 MG PO ×2 (09:27→21:31)
[2024-07-25] MEDS: Pantoprazole Sodium 20 MG Tablet PO (09:27)
[2024-07-25] MEDS: Metoprolol Tartrate 50 MG Tablet PO ×2 (09:27→21:31)
[2024-07-25] MEDS: Ascorbic Acid 500 MG Tablet 1000 MG PO ×2 (09:27→21:32)
[2024-07-25] MEDS: amLODIPine 10 MG Tablet PO (09:27)
[2024-07-25] MEDS: Acyclovir 200 MG Capsule 400 MG PO ×2 (09:27→21:32)
[2024-07-25] MEDS: Cholecalciferol (Vit D3) 125 MCG CAPSULE (5,000 UNITS) PO (09:27)
[2024-07-25] MEDS: Ferrous Sulfate 325 MG Tablet PO (09:28)
[2024-07-25] MEDS: APIXABAN 5 MG TABLET PO ×2 (09:28→21:30)
[2024-07-25] MEDS: Calcium (Elemental) 500 MG Tablet PO ×2 (09:28→16:33)
[2024-07-25] MEDS: Polyethylene Glycol 3350 17 GM PACKET PO (09:28)
[2024-07-25] MEDS: Senna/Docusate Sodium 1 Tablet 2 TABLET PO ×2 (09:28→21:31)
[2024-07-25 09:31] VITALS: BMI 28.9
[2024-07-25] MEDS: Nystatin Powder 15gm Bottle 1 APPLIC TOPICAL ×2 (09:36→21:32)
[2024-07-25] MEDS: Menthol/Lanolin/Calamine/Znox 113 GM Tube 1 APPLIC TOPICAL ×2 (09:37→21:33)
[2024-07-25] MEDS: Magnesium Chloride 64 MG Delay Rel.Tablet 128 MG PO (14:04)
--- NOTE | 2024-07-25 14:42 | WOUNDNOTE ---
wound photo: mid upper back
[2024-07-25 15:03] VITALS: BP 102/61; PULSE 60; RESP 17; TEMP 36.4; O2SAT 97
[2024-07-25] MEDS: 0.9% Saline Lock 10 ML Syringe IV ×2 (16:34→21:28)
[2024-07-25] MEDS: 0.9 % NaCl (Sterile) Posiflush 10 mL IV (21:28)
[2024-07-25] MEDS: SimETHICONE 80 MG Chewable Tablet PO (21:29)
[2024-07-25 21:31] VITALS: BP 108/64; PULSE 62
[2024-07-25] MEDS: MELATONIN 3 MG TABLET 6 MG PO (21:31)
[2024-07-25] MEDS: Vancomycin HCl 1,500 MG in 0.9% Normal Saline (500mL Bag) 500 ML 250 MG IV (21:39)
[2024-07-25 21:44] VITALS: BP 108/64; PULSE 62
[2024-07-26] MEDS: Levothyroxine 100 MCG Tablet PO (05:55)
[2024-07-26] MEDS: Ensure Plus High Protein 120 ML LIQUID PO ×3 (05:55→21:38)
[2024-07-26] MEDS: Gabapentin 100 MG Capsule PO ×3 (05:55→21:29)
[2024-07-26] MEDS: Calcium (Elemental) 500 MG Tablet PO ×2 (09:39→17:41)
[2024-07-26] MEDS: Ferrous Sulfate 325 MG Tablet PO (09:39)
[2024-07-26] MEDS: Menthol/Lanolin/Calamine/Znox 113 GM Tube 1 APPLIC TOPICAL ×2 (09:40→21:29)
[2024-07-26] MEDS: Baclofen 10 MG Tablet 5 MG PO ×2 (09:41→21:29)
[2024-07-26] MEDS: amLODIPine 10 MG Tablet PO (09:41)
[2024-07-26] MEDS: APIXABAN 5 MG TABLET PO ×2 (09:41→21:29)
[2024-07-26 09:42] VITALS: BP 109/66; PULSE 60
[2024-07-26] MEDS: Metoprolol Tartrate 50 MG Tablet PO ×2 (09:42→21:29)
[2024-07-26] MEDS: Ascorbic Acid 500 MG Tablet 1000 MG PO ×2 (09:43→09:44)
[2024-07-26] MEDS: Nystatin Powder 15gm Bottle 1 APPLIC TOPICAL ×2 (09:43→21:30)
[2024-07-26] MEDS: Polyethylene Glycol 3350 17 GM PACKET PO (09:43)
[2024-07-26] MEDS: Senna/Docusate Sodium 1 Tablet 2 TABLET PO ×2 (09:44→21:29)
[2024-07-26] MEDS: Cholecalciferol (Vit D3) 125 MCG CAPSULE (5,000 UNITS) PO (09:44)
[2024-07-26] MEDS: Acyclovir 200 MG Capsule 400 MG PO ×2 (09:45→21:29)
[2024-07-26] MEDS: Pantoprazole Sodium 20 MG Tablet PO (09:46)
[2024-07-26 11:34] VITALS: BP 105/62; PULSE 63; RESP 16; TEMP 37; O2SAT 97
[2024-07-26] MEDS: 0.9% Saline Lock 10 ML Syringe IV (11:40)
[2024-07-26] MEDS: Hydrocortisone 2.5% Crm 1 APPLIC TOPICAL (11:40)
[2024-07-26] MEDS: Magnesium Chloride 64 MG Delay Rel.Tablet 128 MG PO (12:11)
[2024-07-26] MEDS: Vancomycin Trough/Random Due 1 LAB MC (20:37)
[2024-07-26 21:16] LABS: Vancomycin, Trough Level 16.4 ug/mL (5.0-15.0)
[2024-07-26 21:28] VITALS: BP 113/59; PULSE 62
[2024-07-26 21:29] VITALS: PULSE 62
[2024-07-26] MEDS: MELATONIN 3 MG TABLET 6 MG PO (21:29)
[2024-07-26] MEDS: 0.9 % NaCl (Sterile) Posiflush 10 mL IV (21:40)
[2024-07-26] MEDS: Vancomycin HCl 1,500 MG in 0.9% Normal Saline (500mL Bag) 500 ML 250 MG IV (22:06)
[2024-07-26] MEDS: 0.9% Normal Saline (500mL Bag) 500 ML 250 ML IV (22:06)
--- NOTE | 2024-07-26 23:23 | PCM.RX.CS ---
Consult Antibiotic Management Pharmacy has been consulted to manage selected antibiotic: Vancomycin Type of Intervention Type of Consult: Follow-up Labs Labs: Sodium 140 mmol/L (136-145) 07/25/24 05:28 Potassium 3.6 mmol/L (3.5-5.1) 07/25/24 05:28 Chloride 108 mmol/L (98-107) H 07/25/24 05:28 Carbon Dioxide 28.0 mmol/L (21.0-32.0) 07/25/24 05:28 Anion Gap 4 (5-15) L 07/25/24 05:28 BUN 38 mg/dL (7-18) H 07/25/24 05:28 Creatinine 1.07 mg/dL (0.70-1.30) 07/25/24 05:28 Est GFR (MDRD) Af Amer 89 mL/min (>60) 07/25/24 05:28 Est GFR (MDRD) Non-Af 73 mL/min (>60) 07/25/24 05:28 BUN/Creatinine Ratio 35.5 RATIO (10-20) H 07/25/24 05:28 Glucose 97 mg/dL (74-106) 07/25/24 05:28 Vancomycin Trough 16.4 ug/mL (5.0-15.0) H 07/26/24 20:50 Microbiology Microbiology: Microbiology 07/11/24 06:00 Nasal Secretion SARS-CoV-2 Antigen (Rapid) - Final Goal Trough Goal Trough: 15-20 mcg/mL Pharmacy Plan for Drug Dosing Pharmacy Plan for Drug Dosing: Pharmacy Service will continue to monitor and adjust dosing as required. TROUGH 16.4 @ 23 HOURS. NO CHANGES,FOLLOW UP TROUOGH IN 2 DAYS Follow-Up Labs Follow-Up Labs: Trough: Vancomycin Date/Time Labs Ordered Labs to be done on [date and time ordered]: 07/28 @ 2030
[2024-07-27] MEDS: 0.9% Saline Lock 10 ML Syringe IV ×3 (01:19→21:59)
[2024-07-27] MEDS: Levothyroxine 100 MCG Tablet PO (05:40)
[2024-07-27] MEDS: Gabapentin 100 MG Capsule PO ×3 (05:40→21:59)
[2024-07-27] MEDS: Ensure Plus High Protein 120 ML LIQUID PO ×3 (05:40→21:59)
[2024-07-27 06:03] LABS: Hematocrit 28.6 % (40-54)
[2024-07-27] MEDS: Calcium (Elemental) 500 MG Tablet PO ×2 (09:44→16:32)
[2024-07-27] MEDS: APIXABAN 5 MG TABLET PO ×2 (09:44→22:00)
[2024-07-27] MEDS: Baclofen 10 MG Tablet 5 MG PO ×2 (09:44→22:00)
[2024-07-27] MEDS: Ferrous Sulfate 325 MG Tablet PO (09:44)
[2024-07-27 09:45] VITALS: BP 110/66; PULSE 63
[2024-07-27] MEDS: Pantoprazole Sodium 20 MG Tablet PO (09:45)
[2024-07-27] MEDS: Metoprolol Tartrate 50 MG Tablet PO ×2 (09:45→22:00)
[2024-07-27] MEDS: Acyclovir 200 MG Capsule 400 MG PO ×2 (09:46→22:01)
[2024-07-27] MEDS: amLODIPine 10 MG Tablet PO (09:46)
[2024-07-27] MEDS: Senna/Docusate Sodium 1 Tablet 2 TABLET PO ×2 (09:46→22:01)
[2024-07-27] MEDS: Ascorbic Acid 500 MG Tablet 1000 MG PO ×2 (09:46→22:01)
[2024-07-27] MEDS: Cholecalciferol (Vit D3) 125 MCG CAPSULE (5,000 UNITS) PO (09:46)
[2024-07-27] MEDS: Polyethylene Glycol 3350 17 GM PACKET PO (09:47)
[2024-07-27] MEDS: Nystatin Powder 15gm Bottle 1 APPLIC TOPICAL ×2 (09:47→22:01)
[2024-07-27] MEDS: Menthol/Lanolin/Calamine/Znox 113 GM Tube 1 APPLIC TOPICAL ×2 (09:48→22:05)
[2024-07-27] MEDS: Magnesium Chloride 64 MG Delay Rel.Tablet 128 MG PO (12:29)
[2024-07-27 15:32] VITALS: BP 106/59; PULSE 61; RESP 16; TEMP 36.7; O2SAT 97
--- NOTE | 2024-07-27 18:02 | PN_ITS ---
Subjective Subjective Doing well, no fevers or chills. Pain controlled on back. Endorses excellent drain care. Objective Data Objective Data Vital Signs: Vital Signs Temp Pulse Resp BP Pulse Ox O2 Del Method 98.1 F 61 16 106/59 L 97 Room Air 07/27/24 15:32 07/27/24 15:32 07/27/24 15:32 07/27/24 15:32 07/27/24 15:32 07/27/24 15:32 Oxygen Delivery Method Room Air Weight: 174 lb 0.5 oz Body Mass Index (BMI) 28.9 Intake & Output: Intake and Output for Last 24 Hours 07/25/24 07/26/24 07/27/24 23:59 23:59 23:59 Intake Total 1730 / 1730 1490 / 1490 1510 / 1510 Output Total 2760 / 2760 1020 / 1020 2064 / 2064 Balance -1030 / -1030 470 / 470 -555 / -555 Medical Nutrition Assessment Dietitian: Malnutrition Criteria Met Start: 07/12/24 13:04 Freq: Status: Active Protocol: Document 07/12/24 13:05 SLA (Rec: 07/12/24 13:05 SLA [email or web address]) Nutrition Malnutrition Evidence of Malnutrition Exists Yes Malnutrition (severe): Acute Illness/Injury Evidenced By Suboptimal Energy Intake ( Severe),Weight Loss (Severe) Intake Problem Increased Nutrient Needs (specify) Etiology protein related to skin status Signs/Symptoms as evidenced by spinal wound w / wound vac Status Active Problem Clinical Problem Acute Disease or Injury Related Malnutrition Etiology related to inadequate oral energy intake Signs/Symptoms as evidenced by 4.9% unintentional wt loss and po intake meeting <75% 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 Lab / Micro Data 07/27/24 05:14 07/25/24 05:28 Labs: Laboratory Results - last 24 hr 07/26/24 20:50: Vancomycin Trough 16.4 H 07/27/24 05:14: Hgb 9.0 L, Hct 28.6 L Micro: Microbiology 07/11/24 06:00 Nasal Secretion SARS-CoV-2 Antigen (Rapid) - Final Physical Exam Narrative Cervical/thoracic spine incision C/D/I, no signs of infection. Drain is serous Assessment & Plan Assessment/Plan (1) History of radiation therapy: (2) Non-pressure chronic ulcer of skin of other sites with muscle involvement without evidence of necrosis: PLAN: Plan Drain still productive, but will consider removing once consistently <30 cc per day PSU to follow Continue dry dressing over the incision and consistent drain care. Charges/Coding Procedures Integumentary 111xxx-113xx: [id number] Global Visit
[2024-07-27 21:58] VITALS: BP 108/59; PULSE 58
[2024-07-27] MEDS: SimETHICONE 80 MG Chewable Tablet PO (21:59)
[2024-07-27 22:00] VITALS: BP 108/59; PULSE 58
[2024-07-27] MEDS: Vancomycin HCl 1,500 MG in 0.9% Normal Saline (500mL Bag) 500 ML 250 MG IV (22:00)
[2024-07-27] MEDS: MELATONIN 3 MG TABLET 6 MG PO (22:01)
[2024-07-28] MEDS: Levothyroxine 100 MCG Tablet PO (06:24)
[2024-07-28] MEDS: Ensure Plus High Protein 120 ML LIQUID PO ×3 (06:24→22:07)
[2024-07-28] MEDS: Gabapentin 100 MG Capsule PO ×3 (06:24→21:55)
[2024-07-28] MEDS: Ferrous Sulfate 325 MG Tablet PO (08:37)
[2024-07-28] MEDS: Calcium (Elemental) 500 MG Tablet PO ×2 (08:37→17:57)
[2024-07-28] MEDS: APIXABAN 5 MG TABLET PO ×2 (08:37→21:54)
[2024-07-28 08:38] VITALS: BP 111/66; PULSE 58
[2024-07-28] MEDS: amLODIPine 10 MG Tablet PO (08:38)
[2024-07-28] MEDS: Baclofen 10 MG Tablet 5 MG PO ×2 (08:38→21:54)
[2024-07-28] MEDS: Polyethylene Glycol 3350 17 GM PACKET PO (08:38)
[2024-07-28] MEDS: Metoprolol Tartrate 50 MG Tablet PO ×2 (08:38→21:55)
[2024-07-28] MEDS: Senna/Docusate Sodium 1 Tablet 2 TABLET PO ×2 (08:39→21:54)
[2024-07-28] MEDS: Pantoprazole Sodium 20 MG Tablet PO (08:39)
[2024-07-28] MEDS: Acyclovir 200 MG Capsule 400 MG PO ×2 (08:39→21:56)
[2024-07-28] MEDS: Cholecalciferol (Vit D3) 125 MCG CAPSULE (5,000 UNITS) PO (08:39)
[2024-07-28] MEDS: Ascorbic Acid 500 MG Tablet 1000 MG PO ×2 (08:39→21:56)
[2024-07-28] MEDS: Nystatin Powder 15gm Bottle 1 APPLIC TOPICAL ×2 (08:41→21:58)
[2024-07-28] MEDS: Menthol/Lanolin/Calamine/Znox 113 GM Tube 1 APPLIC TOPICAL ×2 (08:42→21:58)
[2024-07-28 10:00] VITALS: BP 111/66; PULSE 58; RESP 16; TEMP 36.8; O2SAT 97
[2024-07-28] MEDS: Magnesium Chloride 64 MG Delay Rel.Tablet 128 MG PO (13:51)
[2024-07-28] MEDS: Hydrocortisone 2.5% Crm 1 APPLIC TOPICAL (13:52)
[2024-07-28] MEDS: 0.9 % NaCl (Sterile) Posiflush 10 mL IV (14:13)
--- NOTE | 2024-07-28 15:35 | PCM.PROGNOTE ---
Subjective Subjective Patient doing well. No problems. No fevers or chills. Objective Data Objective Data Vital Signs: Vital Signs Temp Pulse Resp BP Pulse Ox O2 Del Method 98.1 F 58 L 16 111/66 97 Room Air 07/27/24 15:32 07/28/24 08:38 07/27/24 15:32 07/28/24 08:38 07/27/24 15:32 07/27/24 15:32 Oxygen Delivery Method Room Air Weight: 174 lb 0.5 oz Body Mass Index (BMI) 28.9 Intake & Output: Intake and Output for Last 24 Hours 07/26/24 07/27/24 07/28/24 23:59 23:59 23:59 Intake Total 1490 / 1490 1750 / 1750 770 / 770 Output Total 1020 / 1020 2065 / 2065 3700 / 3700 Balance 470 / 470 -315 / -315 -2930 / -2930 Medical Nutrition Assessment Dietitian: Malnutrition Criteria Met Start: 07/12/24 13:04 Freq: Status: Active Protocol: Document 07/12/24 13:05 CHRIS (Rec: 07/12/24 13:05 SLA [email or web address]) Nutrition Malnutrition Evidence of Malnutrition Exists Yes Malnutrition (severe): Acute Illness/Injury Evidenced By Suboptimal Energy Intake ( Severe),Weight Loss (Severe) Intake Problem Increased Nutrient Needs (specify) Etiology protein related to skin status Signs/Symptoms as evidenced by spinal wound w / wound vac Status Active Problem Clinical Problem Acute Disease or Injury Related Malnutrition Etiology related to inadequate oral energy intake Signs/Symptoms as evidenced by 4.9% unintentional wt loss and po intake meeting <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 Lab / Micro Data 07/27/24 05:14 07/25/24 05:28 Micro: Microbiology 07/11/24 06:00 Nasal Secretion SARS-CoV-2 Antigen (Rapid) - Final Physical Exam Narrative Cervical/thoracic spine incision C/D/I, no signs of infection. Drain is serous (50 cc output past 24 hours) Assessment & Plan Assessment/Plan (1) History of radiation therapy: (2) Non-pressure chronic ulcer of skin of other sites with muscle involvement without evidence of necrosis: PLAN: Plan Drain still productive, but will consider removing once consistently <30 cc per day PSU to follow Continue dry dressing over the incision and consistent drain care.
--- NOTE | 2024-07-28 17:18 | NURSING ---
Dr. Olivera in to see patient this AM. Did not remove DARBY at this time due to drainage but will plan to reassess on Wednesday for removal. Wants us to drain DARBY q8h. Nursing communication placed.
[2024-07-28] MEDS: Vancomycin Trough/Random Due 1 LAB MC (18:48)
[2024-07-28 21:31] LABS: Vancomycin, Trough Level 14.7 ug/mL (5.0-15.0)
--- NOTE | 2024-07-28 21:38 | PCM.RX.CS ---
Consult Antibiotic Management Pharmacy has been consulted to manage selected antibiotic: Vancomycin Type of Intervention Type of Consult: Follow-up Labs Labs: Sodium 140 mmol/L (136-145) 07/25/24 05:28 Potassium 3.6 mmol/L (3.5-5.1) 07/25/24 05:28 Chloride 108 mmol/L (98-107) H 07/25/24 05:28 Carbon Dioxide 28.0 mmol/L (21.0-32.0) 07/25/24 05:28 Anion Gap 4 (5-15) L 07/25/24 05:28 BUN 38 mg/dL (7-18) H 07/25/24 05:28 Creatinine 1.07 mg/dL (0.70-1.30) 07/25/24 05:28 Est GFR (MDRD) Af Amer 89 mL/min (>60) 07/25/24 05:28 Est GFR (MDRD) Non-Af 73 mL/min (>60) 07/25/24 05:28 BUN/Creatinine Ratio 35.5 RATIO (10-20) H 07/25/24 05:28 Glucose 97 mg/dL (74-106) 07/25/24 05:28 Vancomycin Trough 14.7 ug/mL (5.0-15.0) 07/28/24 20:55 Microbiology Microbiology: Microbiology 07/11/24 06:00 Nasal Secretion SARS-CoV-2 Antigen (Rapid) - Final Goal Trough Goal Trough: 15-20 mcg/mL Pharmacy Plan for Drug Dosing Pharmacy Plan for Drug Dosing: Pharmacy Service will continue to monitor and adjust dosing as required. TROUGH 14.7 @ 23 HOURS. NO CHANGES, FOLLOW UP TROUGH IN 2 DAYS Follow-Up Labs Follow-Up Labs: Trough: Vancomycin Date/Time Labs Ordered Labs to be done on [date and time ordered]: 07/30 @ 2029
[2024-07-28] MEDS: Vancomycin HCl 1,500 MG in 0.9% Normal Saline (500mL Bag) 500 ML 250 MG IV (21:49)
[2024-07-28] MEDS: MELATONIN 3 MG TABLET 6 MG PO (21:54)
[2024-07-28 21:55] VITALS: BP 108/52; PULSE 60
[2024-07-29] MEDS: Gabapentin 100 MG Capsule PO ×3 (06:26→21:30)
[2024-07-29] MEDS: Ensure Plus High Protein 120 ML LIQUID PO ×3 (06:26→21:20)
[2024-07-29] MEDS: Levothyroxine 100 MCG Tablet PO (06:26)
[2024-07-29] MEDS: Calcium (Elemental) 500 MG Tablet PO ×2 (09:00→16:38)
[2024-07-29] MEDS: Pantoprazole Sodium 20 MG Tablet PO (09:02)
[2024-07-29] MEDS: Acyclovir 200 MG Capsule 400 MG PO ×2 (09:02→21:30)
[2024-07-29] MEDS: Ascorbic Acid 500 MG Tablet 1000 MG PO ×2 (09:02→21:30)
[2024-07-29] MEDS: Ferrous Sulfate 325 MG Tablet PO (09:02)
[2024-07-29] MEDS: Senna/Docusate Sodium 1 Tablet 2 TABLET PO ×2 (09:03→21:30)
[2024-07-29] MEDS: Polyethylene Glycol 3350 17 GM PACKET PO (09:03)
[2024-07-29] MEDS: Baclofen 10 MG Tablet 5 MG PO ×2 (09:03→21:28)
[2024-07-29] MEDS: APIXABAN 5 MG TABLET PO ×2 (09:03→21:28)
[2024-07-29] MEDS: Nystatin Powder 15gm Bottle 1 APPLIC TOPICAL ×2 (09:04→21:21)
[2024-07-29] MEDS: amLODIPine 10 MG Tablet PO (09:06)
[2024-07-29] MEDS: Cholecalciferol (Vit D3) 125 MCG CAPSULE (5,000 UNITS) PO (09:07)
[2024-07-29] MEDS: Menthol/Lanolin/Calamine/Znox 113 GM Tube 1 APPLIC TOPICAL ×2 (11:07→21:21)
[2024-07-29] MEDS: Magnesium Chloride 64 MG Delay Rel.Tablet 128 MG PO (11:11)
[2024-07-29 11:12] VITALS: BP 95/65; PULSE 56
[2024-07-29 14:01] VITALS: PULSE 69; RESP 16; TEMP 36.4
[2024-07-29] MEDS: Vancomycin HCl 1,500 MG in 0.9% Normal Saline (500mL Bag) 500 ML 250 MG IV (21:20)
[2024-07-29] MEDS: 0.9 % NaCl (Sterile) Posiflush 10 mL IV (21:21)
[2024-07-29 21:29] VITALS: BP 119/66; PULSE 60
[2024-07-29] MEDS: Metoprolol Tartrate 50 MG Tablet PO (21:29)
[2024-07-29] MEDS: MELATONIN 3 MG TABLET 6 MG PO (21:30)
[2024-07-30] MEDS: 0.9% Saline Lock 10 ML Syringe IV (01:29)
[2024-07-30] MEDS: Gabapentin 100 MG Capsule PO ×3 (05:42→22:47)
[2024-07-30] MEDS: Ensure Plus High Protein 120 ML LIQUID PO ×3 (05:42→22:52)
[2024-07-30] MEDS: Levothyroxine 100 MCG Tablet PO (05:42)
[2024-07-30] MEDS: Acyclovir 200 MG Capsule 400 MG PO ×2 (08:18→22:38)
[2024-07-30] MEDS: amLODIPine 10 MG Tablet PO (08:18)
[2024-07-30] MEDS: Ascorbic Acid 500 MG Tablet 1000 MG PO ×2 (08:18→22:38)
[2024-07-30] MEDS: Cholecalciferol (Vit D3) 125 MCG CAPSULE (5,000 UNITS) PO (08:18)
[2024-07-30 08:19] VITALS: PULSE 57
[2024-07-30] MEDS: Metoprolol Tartrate 50 MG Tablet PO ×2 (08:19→22:36)
[2024-07-30] MEDS: Baclofen 10 MG Tablet 5 MG PO ×2 (08:19→22:35)
[2024-07-30] MEDS: Senna/Docusate Sodium 1 Tablet 2 TABLET PO ×2 (08:20→22:38)
[2024-07-30] MEDS: APIXABAN 5 MG TABLET PO ×2 (08:20→22:39)
[2024-07-30] MEDS: Ferrous Sulfate 325 MG Tablet PO (08:20)
[2024-07-30] MEDS: Calcium (Elemental) 500 MG Tablet PO ×2 (08:21→18:10)
[2024-07-30] MEDS: Polyethylene Glycol 3350 17 GM PACKET PO (08:21)
[2024-07-30] MEDS: Nystatin Powder 15gm Bottle 1 APPLIC TOPICAL ×2 (08:21→22:48)
[2024-07-30] MEDS: Pantoprazole Sodium 20 MG Tablet PO (08:21)
[2024-07-30] MEDS: Menthol/Lanolin/Calamine/Znox 113 GM Tube 1 APPLIC TOPICAL ×2 (08:22→22:48)
[2024-07-30] MEDS: Magnesium Chloride 64 MG Delay Rel.Tablet 128 MG PO (13:13)
[2024-07-30 16:00] VITALS: BP 118/68; PULSE 57; RESP 18; TEMP 36.9; O2SAT 98
[2024-07-30 21:00] LABS: Vancomycin, Trough Level 14.6 ug/mL (5.0-15.0)
[2024-07-30] MEDS: 0.9 % NaCl (Sterile) Posiflush 10 mL IV (21:55)
[2024-07-30] MEDS: Vancomycin HCl 1,500 MG in 0.9% Normal Saline (500mL Bag) 500 ML 250 MG IV (21:58)
[2024-07-30] MEDS: Vancomycin Trough/Random Due 1 LAB MC (22:04)
[2024-07-30 22:33] VITALS: BP 109/58; PULSE 55
[2024-07-30 22:36] VITALS: PULSE 55
[2024-07-30] MEDS: MELATONIN 3 MG TABLET 6 MG PO (22:40)
--- NOTE | 2024-07-30 23:10 | PCM.RX.CS ---
Consult Antibiotic Management Pharmacy has been consulted to manage selected antibiotic: Vancomycin Type of Intervention Type of Consult: Follow-up Labs Labs: Sodium 140 mmol/L (136-145) 07/25/24 05:28 Potassium 3.6 mmol/L (3.5-5.1) 07/25/24 05:28 Chloride 108 mmol/L (98-107) H 07/25/24 05:28 Carbon Dioxide 28.0 mmol/L (21.0-32.0) 07/25/24 05:28 Anion Gap 4 (5-15) L 07/25/24 05:28 BUN 38 mg/dL (7-18) H 07/25/24 05:28 Creatinine 1.07 mg/dL (0.70-1.30) 07/25/24 05:28 Est GFR (MDRD) Af Amer 89 mL/min (>60) 07/25/24 05:28 Est GFR (MDRD) Non-Af 73 mL/min (>60) 07/25/24 05:28 BUN/Creatinine Ratio 35.5 RATIO (10-20) H 07/25/24 05:28 Glucose 97 mg/dL (74-106) 07/25/24 05:28 Vancomycin Trough 14.6 ug/mL (5.0-15.0) 07/30/24 20:22 Microbiology Microbiology: Microbiology 07/11/24 06:00 Nasal Secretion SARS-CoV-2 Antigen (Rapid) - Final Goal Trough Goal Trough: 15-20 mcg/mL Pharmacy Plan for Drug Dosing Pharmacy Plan for Drug Dosing: Pharmacy Service will continue to monitor and adjust dosing as required. TROUGH 14.6 @ 23 HOURS. NO CHANGES, FOLLOW UP TROUGH IN 4 DAYS Follow-Up Labs Follow-Up Labs: Trough: Vancomycin Date/Time Labs Ordered Labs to be done on [date and time ordered]: 08/03 @ 2030
[2024-07-31] MEDS: Ensure Plus High Protein 120 ML LIQUID PO ×3 (06:44→22:39)
[2024-07-31] MEDS: Gabapentin 100 MG Capsule PO ×3 (06:44→22:38)
[2024-07-31] MEDS: Levothyroxine 100 MCG Tablet PO (06:44)
--- NOTE | 2024-07-31 08:54 | PN.SURG_ITS ---
Subjective Subjective Doing well overall. Reports 1/10 pain that is intermittent in his back. Feels well and has been doing a lot of PT on the rehab floor. Objective Data Objective Data Vital Signs: Vital Signs Temp Pulse Resp BP Pulse Ox O2 Del Method O2 Flow Rate 98.4 F 55 L 18 109/58 L 98 Room Air 97 07/30/24 16:00 07/30/24 22:36 07/30/24 16:00 07/30/24 22:33 07/30/24 16:00 07/30/24 22:05 07/29/24 14:01 Oxygen Flow Rate (L/min) 97 Oxygen Delivery Method Room Air Weight: 174 lb 0.5 oz Body Mass Index (BMI) 28.9 Intake & Output: Intake and Output for Last 24 Hours 07/29/24 07/30/24 07/31/24 23:59 22:59 23:59 Intake Total 1360 / 1360 990 / 990 530 / 530 Output Total 4255 / 4255 2525 / 2525 800 / 800 Balance -2895 / -2895 -1535 / -1535 -270 / -270 Medical Nutrition Assessment Dietitian: Malnutrition Criteria Met Start: 07/12/24 13:04 Freq: Status: Active Protocol: Document 07/12/24 13:05 CHRIS (Rec: 07/12/24 13:05 SLA [email or web address]) Nutrition Malnutrition Evidence of Malnutrition Exists Yes Malnutrition (severe): Acute Illness/Injury Evidenced By Suboptimal Energy Intake ( Severe),Weight Loss (Severe) Intake Problem Increased Nutrient Needs (specify) Etiology protein related to skin status Signs/Symptoms as evidenced by spinal wound w / wound vac Status Active Problem Clinical Problem Acute Disease or Injury Related Malnutrition Etiology related to inadequate oral energy intake Signs/Symptoms as evidenced by 4.9% unintentional wt loss and po intake meeting <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 Lab / Micro Data 07/27/24 05:14 07/25/24 05:28 Labs: Laboratory Results - last 24 hr 07/30/24 20:22: Vancomycin Trough 14.6 Micro: Microbiology 07/11/24 06:00 Nasal Secretion SARS-CoV-2 Antigen (Rapid) - Final Physical Exam Narrative Back: Drain is serous (45 cc out past 24 hours). Upper portion of incision with two spitting sutures that were removed. No drainage, just slight superficial dehiscence in this area. No induration. Assessment & Plan Assessment/Plan (1) Non-pressure chronic ulcer of skin of other sites with muscle involvement without evidence of necrosis: (2) History of radiation therapy: PLAN: Plan Drain still productive, but will consider removing once consistently <30 cc per day (likely this week) [facility] to follow We will do bacitracin twice daily to area of superficial dehiscence and monitor closely. There is no drainage at this time. Appears to be superficial 2/2 suture spitting, but needs close attention. Patient will continue to pressure offload. Charges/Coding Procedures Integumentary 111xxx-113xx: 47075 Global Visit
[2024-07-31] MEDS: Calcium (Elemental) 500 MG Tablet PO ×2 (09:01→17:58)
[2024-07-31] MEDS: amLODIPine 10 MG Tablet PO (09:01)
[2024-07-31] MEDS: Ascorbic Acid 500 MG Tablet 1000 MG PO ×2 (09:01→22:38)
[2024-07-31] MEDS: Nystatin Powder 15gm Bottle 1 APPLIC TOPICAL ×2 (09:01→22:46)
[2024-07-31] MEDS: Pantoprazole Sodium 20 MG Tablet PO (09:01)
[2024-07-31] MEDS: Cholecalciferol (Vit D3) 125 MCG CAPSULE (5,000 UNITS) PO (09:01)
[2024-07-31 09:02] VITALS: BP 121/67; PULSE 62
[2024-07-31] MEDS: APIXABAN 5 MG TABLET PO ×2 (09:02→22:39)
[2024-07-31] MEDS: Acyclovir 200 MG Capsule 400 MG PO ×2 (09:02→22:38)
[2024-07-31] MEDS: Metoprolol Tartrate 50 MG Tablet PO ×2 (09:02→22:38)
[2024-07-31] MEDS: Ferrous Sulfate 325 MG Tablet PO (09:02)
[2024-07-31] MEDS: Baclofen 10 MG Tablet 5 MG PO ×2 (09:03→22:38)
[2024-07-31] MEDS: Polyethylene Glycol 3350 17 GM PACKET PO (09:04)
[2024-07-31] MEDS: Menthol/Lanolin/Calamine/Znox 113 GM Tube 1 APPLIC TOPICAL ×2 (09:10→22:37)
[2024-07-31] MEDS: 0.9 % NaCl (Sterile) Posiflush 10 mL IV ×2 (12:52→22:34)
[2024-07-31 15:10] VITALS: BP 121/67; PULSE 61; RESP 16; TEMP 36.2; O2SAT 95
[2024-07-31] MEDS: Magnesium Chloride 64 MG Delay Rel.Tablet 128 MG PO (15:11)
[2024-07-31 22:33] VITALS: BP 111/64; PULSE 74
[2024-07-31] MEDS: Vancomycin HCl 1,500 MG in 0.9% Normal Saline (500mL Bag) 500 ML 250 MG IV (22:34)
[2024-07-31] MEDS: BACITRACIN 15 GM Tube 1 APPLIC TOPICAL (22:36)
[2024-07-31 22:38] VITALS: BP 111/64; PULSE 79
[2024-07-31] MEDS: MELATONIN 3 MG TABLET 6 MG PO (22:38)
[2024-08-01] MEDS: Levothyroxine 100 MCG Tablet PO (05:59)
[2024-08-01] MEDS: Ensure Plus High Protein 120 ML LIQUID PO ×3 (05:59→22:16)
[2024-08-01] MEDS: Gabapentin 100 MG Capsule PO ×3 (05:59→22:15)
[2024-08-01 06:23] LABS: Anion Gap 5 (5-15); BUN 30 mg/dL (7-18); BUN/Creat Ratio 30.5 RATIO (10-20); Calcium,Total 9.2 mg/dL (8.5-10.1); Chloride 106 mmol/L (98-107); Creatinine, Serum 0.98 mg/dL (0.70-1.30); EST Glomerular Filtration Rate 81 mL/min (>60); Est Glom Filt Rate - Afr Amer 98 mL/min (>60); Estimated Creatinine Clearance 70.84 ml/min; Glucose 98 mg/dL (74-106); Potassium 3.8 mmol/L (3.5-5.1); Sodium Level 141 mmol/L (136-145)
[2024-08-01 07:09] LABS: Erythrocyte Sedimentation Rate 15 mm/hr (0-20)
[2024-08-01 07:11] LABS: Absolute Lymphocyte Count 0.35 X10^3/uL (0.83-4.51); Absolute Neutrophil Count 2.1 X10^3/uL (2.0-7.7); Basophil# 0.02 X10^3/uL; Basophil% 0.7 % (0-1); Eosinophil# 0.11 X10^3/uL; Eosinophils% 3.7 % (0-5); Hematocrit 30.8 % (40-54); Hemoglobin 9.7 g/dL (13.0-16.5); Lymphocyte # 0.35 X10^3/ul (0.83-4.51); Lymphocyte % 11.6 % (19-41); Mean Corp Hgb Conc 31.5 g/dL (32-36); Mean Corpuscular Hgb 28.5 pg (27.0-32.0); Mean Corpuscular Volume 90.6 fL (80-94); Mean Platelet Vol. 10.2 fl (6.2-12.0); Monocyte# 0.46 X10^3/uL; Monocyte% 15.3 % (0-10); NRBC Flagged by Analyzer 0 % (0-5); Neutrophil # 2.06 X10^3/uL (2.7-7.7); Neutrophil % 68.4 % (47-70); POSITIVE DIFFERENTIAL YES; Platelet Count 138 K/mm3 (150-450); RBC Distribution Width SD 49.7 fl (35.1-43.9)
[2024-08-01 09:00] VITALS: BMI 29.8
[2024-08-01 09:23] VITALS: BP 100/61; PULSE 61; RESP 16; TEMP 36.7; O2SAT 97
[2024-08-01] MEDS: Ferrous Sulfate 325 MG Tablet PO (09:39)
[2024-08-01] MEDS: Calcium (Elemental) 500 MG Tablet PO ×2 (09:40→16:49)
[2024-08-01] MEDS: BACITRACIN 15 GM Tube 1 APPLIC TOPICAL ×2 (09:40→22:14)
[2024-08-01] MEDS: Menthol/Lanolin/Calamine/Znox 113 GM Tube 1 APPLIC TOPICAL ×2 (09:41→22:18)
[2024-08-01] MEDS: Baclofen 10 MG Tablet 5 MG PO ×2 (09:42→22:17)
[2024-08-01] MEDS: APIXABAN 5 MG TABLET PO ×2 (09:42→22:16)
[2024-08-01 09:44] VITALS: BP 100/61; PULSE 61
[2024-08-01] MEDS: Polyethylene Glycol 3350 17 GM PACKET PO (09:44)
[2024-08-01] MEDS: Nystatin Powder 15gm Bottle 1 APPLIC TOPICAL ×2 (09:44→22:16)
[2024-08-01] MEDS: Metoprolol Tartrate 50 MG Tablet PO ×2 (09:44→22:18)
[2024-08-01] MEDS: amLODIPine 10 MG Tablet PO (09:45)
[2024-08-01] MEDS: Pantoprazole Sodium 20 MG Tablet PO (09:45)
[2024-08-01] MEDS: Ascorbic Acid 500 MG Tablet 1000 MG PO ×2 (09:45→22:16)
[2024-08-01] MEDS: Cholecalciferol (Vit D3) 125 MCG CAPSULE (5,000 UNITS) PO (09:46)
[2024-08-01] MEDS: Acyclovir 200 MG Capsule 400 MG PO ×2 (09:46→22:16)
[2024-08-01] MEDS: 0.9 % NaCl (Sterile) Posiflush 10 mL IV (12:00)
[2024-08-01] MEDS: Magnesium Chloride 64 MG Delay Rel.Tablet 128 MG PO (12:07)
--- NOTE | 2024-08-01 13:30 | PN.SURG_ITS ---
Subjective Subjective Patient is doing well. He has no complaints. Objective Data Objective Data Vital Signs: Vital Signs Temp Pulse Resp BP Pulse Ox O2 Del Method O2 Flow Rate 98.0 F 61 16 100/61 97 Room Air 97 08/01/24 09:23 08/01/24 09:44 08/01/24 09:23 08/01/24 09:44 08/01/24 09:23 08/01/24 09:23 07/29/24 14:01 Oxygen Flow Rate (L/min) 97 Oxygen Delivery Method Room Air Weight: 179 lb 6.4 oz Body Mass Index (BMI) 29.8 Intake & Output: Intake and Output for Last 24 Hours 07/30/24 07/31/24 08/01/24 22:59 23:59 23:59 Intake Total 990 / 990 1010 / 1010 1010 / 1010 Output Total 2525 / 2525 1725 / 1725 2415 / 2415 Balance -1535 / -1535 -715 / -715 -1405 / -1405 Petros drain output 15 ml today. Medical Nutrition Assessment Dietitian: Malnutrition Criteria Met Start: 07/12/24 13:04 Freq: Status: Active Protocol: Document 07/12/24 13:05 SLA (Rec: 07/12/24 13:05 SLA [email or web address]) Nutrition Malnutrition Evidence of Malnutrition Exists Yes Malnutrition (severe): Acute Illness/Injury Evidenced By Suboptimal Energy Intake ( Severe),Weight Loss (Severe) Intake Problem Increased Nutrient Needs (specify) Etiology protein related to skin status Signs/Symptoms as evidenced by spinal wound w / wound vac Status Active Problem Clinical Problem Acute Disease or Injury Related Malnutrition Etiology related to inadequate oral energy intake Signs/Symptoms as evidenced by 4.9% unintentional wt loss and po intake meeting <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 Lab / Micro Data 08/01/24 05:20 08/01/24 05:20 Labs: Laboratory Results - last 24 hr 08/01/24 05:20: WBC 3.0 L, RBC 3.40 L, Hgb 9.7 L, Hct 30.8 L, MCV 90.6, MCH 28.5, MCHC 31.5 L, RDW Std Deviation 49.7 H, RDW Coeff of Hattie 15.0 H, Plt Count 138 L, MPV 10.2, Immature Gran % (Auto) 0.300, Neut % (Auto) 68.4, Lymph % (Auto) 11.6 L, Chaves % (Auto) 15.3 H, Eos % (Auto) 3.7, Baso % (Auto) 0.7, Absolute Neuts (auto) 2.1, Absolute Lymphs (auto) 0.35 L, Nucleated RBC % 0, ESR 15, Sodium 141, Potassium 3.8, Chloride 106, Carbon Dioxide 30.0, Anion Gap 5, B UN 30 H, Creatinine 0.98, Estim Creat Clear Calc 70.84, Est GFR (MDRD) Af Amer 98, Est GFR (MDRD) Non-Af 81, BUN/Creatinine Ratio 30.5 H, Glucose 98, Calcium 9.2 Micro: Microbiology 07/11/24 06:00 Nasal Secretion SARS-CoV-2 Antigen (Rapid) - Final Physical Exam Narrative Petros drain output is 15 ml for the past 24 hours. He has been consistently having less than 30 ml drainage in 24 hour period for the past 3 days. Petros drain removed without difficulty. Incision is healing well, small separation on proximal portion of incision that is not draining, it is very superficial. Const alert and oriented x3 Eyes General Eye: normal appearance of both eyes Resp normal respiratory effort Effort and Inspection: able to speak in complete sentences Cardio regular rate Extremity full ROM Assessment & Plan Assessment/Plan (1) Non-pressure chronic ulcer of skin of other sites with muscle involvement without evidence of necrosis: (2) History of radiation therapy: PLAN: Plan Petros drain removed today since he has been consistently having less than 30 ml drainage for the past several days. Continue the Bacitracin twice daily to the the small wound separation. No drainage noted. Patient is still to pressure off load. Charges/Coding Procedures Integumentary 111xxx-113xx: [id number] Global Visit
--- NOTE | 2024-08-01 15:06 | CASEMGMT ---
Addendum entered by Varsha Gardner 08/03/24 15:50: [facility] for Gabbi Szymanski to review. Addendum entered by Varsha Gardner 08/03/24 10:14: SW sent email to Marcello at [facility] about return, whom forwarded the information to KEITH Szymanski, to converse. Will continue to follow. Original Note: Social Work SW spoke with pt at bedside to discuss plans for DC. Pt confirmed Dr. Olivera removed drain. SW offered to anticipate DC 08/13, once IV ATB are completed on 08/12, if Dr agrees. Pt confirms. SW to follow up with [facility] and confirm. Will continue to follow. 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
[2024-08-01 22:00] VITALS: PULSE 56; RESP 15
[2024-08-01] MEDS: 0.9% Saline Lock 10 ML Syringe IV (22:07)
[2024-08-01] MEDS: Vancomycin HCl 1,500 MG in 0.9% Normal Saline (500mL Bag) 500 ML 250 MG IV (22:14)
[2024-08-01] MEDS: MELATONIN 3 MG TABLET 6 MG PO (22:15)
[2024-08-01 22:18] VITALS: BP 101/54; PULSE 60
[2024-08-01 22:24] VITALS: BP 101/54; PULSE 60
[2024-08-02 05:45] VITALS: PULSE 61; RESP 14
[2024-08-02] MEDS: Gabapentin 100 MG Capsule PO ×3 (05:56→22:45)
[2024-08-02] MEDS: Levothyroxine 100 MCG Tablet PO (05:56)
[2024-08-02] MEDS: Ensure Plus High Protein 120 ML LIQUID PO ×3 (05:56→22:44)
--- NOTE | 2024-08-02 07:14 | NURSING ---
dr zelaya here changed dressing
[2024-08-02 08:50] VITALS: BP 109/60; PULSE 59; RESP 17; TEMP 36.6; O2SAT 97
[2024-08-02] MEDS: Ferrous Sulfate 325 MG Tablet PO (08:53)
[2024-08-02] MEDS: Calcium (Elemental) 500 MG Tablet PO ×2 (08:54→17:23)
[2024-08-02] MEDS: Menthol/Lanolin/Calamine/Znox 113 GM Tube 1 APPLIC TOPICAL ×2 (08:54→22:51)
[2024-08-02] MEDS: BACITRACIN 15 GM Tube 1 APPLIC TOPICAL ×2 (08:54→22:47)
[2024-08-02] MEDS: Baclofen 10 MG Tablet 5 MG PO ×2 (08:55→22:49)
[2024-08-02] MEDS: APIXABAN 5 MG TABLET PO ×2 (08:55→22:49)
--- NOTE | 2024-08-02 08:55 | NURSING ---
PT believes vanegas cath was last changed in may, will update dr santana for vanegas change order.
[2024-08-02 08:56] VITALS: PULSE 59
[2024-08-02] MEDS: Metoprolol Tartrate 50 MG Tablet PO ×2 (08:56→22:49)
[2024-08-02] MEDS: Polyethylene Glycol 3350 17 GM PACKET PO (08:57)
[2024-08-02] MEDS: Pantoprazole Sodium 20 MG Tablet PO (08:57)
[2024-08-02] MEDS: amLODIPine 10 MG Tablet PO (08:57)
[2024-08-02] MEDS: Nystatin Powder 15gm Bottle 1 APPLIC TOPICAL ×2 (08:57→22:50)
[2024-08-02] MEDS: Senna/Docusate Sodium 1 Tablet 2 TABLET PO ×2 (08:58→22:50)
[2024-08-02] MEDS: Acyclovir 200 MG Capsule 400 MG PO ×2 (08:58→22:48)
[2024-08-02] MEDS: Ascorbic Acid 500 MG Tablet 1000 MG PO ×2 (08:58→22:50)
[2024-08-02] MEDS: Cholecalciferol (Vit D3) 125 MCG CAPSULE (5,000 UNITS) PO (08:58)
--- NOTE | 2024-08-02 09:16 | PCM.PN.SRG ---
Subjective Subjective Seen and examined. Drain removed yesterday by FREDI. Patient reports pain controlled and no problems. Objective Data Objective Data Vital Signs: Vital Signs Temp Pulse Resp BP Pulse Ox O2 Del Method O2 Flow Rate 98 F 59 L 17 109/60 97 Room Air 97 08/02/24 08:50 08/02/24 08:56 08/02/24 08:50 08/02/24 08:50 08/02/24 08:50 08/02/24 08:50 07/29/24 14:01 Oxygen Flow Rate (L/min) 97 Oxygen Delivery Method Room Air Weight: 179 lb 6.4 oz Body Mass Index (BMI) 29.8 Intake & Output: Intake and Output for Last 24 Hours 07/31/24 08/01/24 08/02/24 23:59 23:59 23:59 Intake Total 1010 / 1010 1250 / 1250 890 / 890 Output Total 1725 / 1725 3115 / 3115 475 / 475 Balance -715 / -715 -1865 / -1865 415 / 415 Medical Nutrition Assessment Dietitian: Malnutrition Criteria Met Start: 07/12/24 13:04 Freq: Status: Active Protocol: Document 07/12/24 13:05 SLA (Rec: 07/12/24 13:05 SLA [email or web address]) Nutrition Malnutrition Evidence of Malnutrition Exists Yes Malnutrition (severe): Acute Illness/Injury Evidenced By Suboptimal Energy Intake ( Severe),Weight Loss (Severe) Intake Problem Increased Nutrient Needs (specify) Etiology protein related to skin status Signs/Symptoms as evidenced by spinal wound w / wound vac Status Active Problem Clinical Problem Acute Disease or Injury Related Malnutrition Etiology related to inadequate oral energy intake Signs/Symptoms as evidenced by 4.9% unintentional wt loss and po intake meeting <75% 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 Lab / Micro Data 08/01/24 05:20 08/01/24 05:20 Micro: Microbiology 07/11/24 06:00 Nasal Secretion SARS-CoV-2 Antigen (Rapid) - Final Physical Exam Narrative Back: interval drain removal Upper portion of incision with two spitting sutures still open with beefy red granulation tissue. No drainage, just slight superficial dehiscence in this area. No induration. No palpable fluid collections. Const alert and oriented x3 Neck full ROM Resp normal respiratory effort Cardio regular rate Assessment & Plan Assessment/Plan (1) Non-pressure chronic ulcer of skin of other sites with muscle involvement without evidence of necrosis: (2) History of radiation therapy: PLAN: Plan Agree with continued ID follow up and continued antibiotics per ID (but no signs of infection at this time) Continue the Bacitracin twice daily to the the small wound separation. Patient is still to pressure off load. Charges/Coding Procedures Integumentary 111xxx-113xx: [id number] Global Visit
[2024-08-02] MEDS: Magnesium Chloride 64 MG Delay Rel.Tablet 128 MG PO (12:18)
[2024-08-02] MEDS: 0.9% Saline Lock 10 ML Syringe IV (22:44)
[2024-08-02] MEDS: Vancomycin HCl 1,500 MG in 0.9% Normal Saline (500mL Bag) 500 ML 250 MG IV (22:47)
[2024-08-02 22:49] VITALS: BP 108/69; PULSE 58
[2024-08-02] MEDS: MELATONIN 3 MG TABLET 6 MG PO (22:50)
[2024-08-02 22:54] VITALS: BP 108/69; PULSE 58
[2024-08-03] MEDS: Acetaminophen 500 MG Tablet PO (00:43)
--- NOTE | 2024-08-03 00:55 | NURSING ---
Patient has chronic vanegas in place. Vanegas catheter changed this shift on 08/02/24 per order. Patient tolerated well, reports area is a bit sore but it is not uncommon after new placement he says. PRN tylenol administered to help manage pain to site.
[2024-08-03] MEDS: Levothyroxine 100 MCG Tablet PO (06:24)
[2024-08-03] MEDS: Ensure Plus High Protein 120 ML LIQUID PO ×3 (06:24→22:05)
[2024-08-03] MEDS: Gabapentin 100 MG Capsule PO ×3 (06:24→22:05)
[2024-08-03 08:58] VITALS: BP 104/59; PULSE 58; RESP 16; TEMP 36.8; O2SAT 97
[2024-08-03] MEDS: Ferrous Sulfate 325 MG Tablet PO (09:06)
[2024-08-03] MEDS: Baclofen 10 MG Tablet 5 MG PO ×2 (09:07→22:10)
[2024-08-03] MEDS: Calcium (Elemental) 500 MG Tablet PO ×2 (09:07→16:26)
[2024-08-03] MEDS: BACITRACIN 15 GM Tube 1 APPLIC TOPICAL ×2 (09:07→22:10)
[2024-08-03] MEDS: APIXABAN 5 MG TABLET PO ×2 (09:07→22:10)
[2024-08-03] MEDS: Polyethylene Glycol 3350 17 GM PACKET PO (09:08)
[2024-08-03] MEDS: Pantoprazole Sodium 20 MG Tablet PO (09:12)
[2024-08-03] MEDS: Ascorbic Acid 500 MG Tablet 1000 MG PO ×2 (09:12→22:12)
[2024-08-03] MEDS: Senna/Docusate Sodium 1 Tablet 2 TABLET PO (09:12)
[2024-08-03] MEDS: Cholecalciferol (Vit D3) 125 MCG CAPSULE (5,000 UNITS) PO (09:12)
[2024-08-03] MEDS: Acyclovir 200 MG Capsule 400 MG PO ×2 (09:13→22:12)
[2024-08-03] MEDS: Menthol/Lanolin/Calamine/Znox 113 GM Tube 1 APPLIC TOPICAL ×2 (09:14→22:35)
[2024-08-03] MEDS: Nystatin Powder 15gm Bottle 1 APPLIC TOPICAL ×2 (09:14→22:12)
[2024-08-03] MEDS: Magnesium Chloride 64 MG Delay Rel.Tablet 128 MG PO (12:06)
[2024-08-03] MEDS: 0.9 % NaCl (Sterile) Posiflush 10 mL IV (14:33)
--- NOTE | 2024-08-03 14:40 | WOUNDNOTE ---
wound photo: mid upper back
[2024-08-03 21:29] LABS: Vancomycin, Trough Level 15.5 ug/mL (5.0-15.0)
--- NOTE | 2024-08-03 21:52 | PCM.RX.CS ---
Consult Antibiotic Management Pharmacy has been consulted to manage selected antibiotic: Vancomycin Type of Intervention Type of Consult: Follow-up Suspected Infection Suspected Infection: Skin/Soft tissue Labs Labs: Sodium 141 mmol/L (136-145) 08/01/24 05:20 Potassium 3.8 mmol/L (3.5-5.1) 08/01/24 05:20 Chloride 106 mmol/L (98-107) 08/01/24 05:20 Carbon Dioxide 30.0 mmol/L (21.0-32.0) 08/01/24 05:20 Anion Gap 5 (5-15) 08/01/24 05:20 BUN 30 mg/dL (7-18) H 08/01/24 05:20 Creatinine 0.98 mg/dL (0.70-1.30) 08/01/24 05:20 Est GFR (MDRD) Af Amer 98 mL/min (>60) 08/01/24 05:20 Est GFR (MDRD) Non-Af 81 mL/min (>60) 08/01/24 05:20 BUN/Creatinine Ratio 30.5 RATIO (10-20) H 08/01/24 05:20 Glucose 98 mg/dL (74-106) 08/01/24 05:20 Vancomycin Trough 15.5 ug/mL (5.0-15.0) H 08/03/24 20:30 Microbiology Microbiology: Microbiology 07/11/24 06:00 Nasal Secretion SARS-CoV-2 Antigen (Rapid) - Final Dosing Weight Weight used for dosin kg Estimated Creatinine Clearance Estimated Creatinine Clearance: 71 Goal Trough Goal Trough: 15-20 mcg/mL Pharmacy Plan for Drug Dosing Pharmacy Plan for Drug Dosing: Vancomycin trough level of 15.5, drawn 21.75hrs post-dose, was within the target range of 15-20. Will continue dosing at 1500mg q24h, and will draw another trough level in four days. Pharmacy Service will continue to monitor and adjust dosing as required. Follow-Up Labs Follow-Up Labs: Trough: Vancomycin Date/Time Labs Ordered Labs to be done on [date and time ordered]: 08/07/24 @2030
[2024-08-03 22:00] VITALS: PULSE 64; RESP 16; O2SAT 94
[2024-08-03] MEDS: 0.9% Saline Lock 10 ML Syringe IV (22:05)
[2024-08-03] MEDS: Vancomycin HCl 1,500 MG in 0.9% Normal Saline (500mL Bag) 500 ML 250 MG IV (22:06)
[2024-08-03] MEDS: MELATONIN 3 MG TABLET 6 MG PO (22:09)
[2024-08-03 22:11] VITALS: BP 115/73; PULSE 64
[2024-08-03] MEDS: Metoprolol Tartrate 50 MG Tablet PO (22:11)
[2024-08-04] MEDS: 0.9% Saline Lock 10 ML Syringe IV ×2 (01:36→23:02)
[2024-08-04] MEDS: Ensure Plus High Protein 120 ML LIQUID PO ×3 (06:24→23:27)
[2024-08-04] MEDS: Gabapentin 100 MG Capsule PO ×3 (06:24→23:26)
[2024-08-04] MEDS: Levothyroxine 100 MCG Tablet PO (06:24)
[2024-08-04] MEDS: Acyclovir 200 MG Capsule 400 MG PO ×2 (08:38→23:23)
[2024-08-04] MEDS: Ascorbic Acid 500 MG Tablet 1000 MG PO ×2 (08:38→23:24)
[2024-08-04] MEDS: Menthol/Lanolin/Calamine/Znox 113 GM Tube 1 APPLIC TOPICAL ×2 (08:39→23:28)
[2024-08-04] MEDS: APIXABAN 5 MG TABLET PO ×2 (08:39→23:22)
[2024-08-04] MEDS: Calcium (Elemental) 500 MG Tablet PO ×2 (08:39→17:45)
[2024-08-04] MEDS: Pantoprazole Sodium 20 MG Tablet PO (08:40)
[2024-08-04] MEDS: Baclofen 10 MG Tablet 5 MG PO ×2 (08:40→23:19)
[2024-08-04] MEDS: Polyethylene Glycol 3350 17 GM PACKET PO (08:40)
[2024-08-04] MEDS: Nystatin Powder 15gm Bottle 1 APPLIC TOPICAL ×2 (08:41→23:20)
[2024-08-04] MEDS: amLODIPine 10 MG Tablet PO (08:41)
[2024-08-04] MEDS: Ferrous Sulfate 325 MG Tablet PO (08:41)
[2024-08-04] MEDS: Cholecalciferol (Vit D3) 125 MCG CAPSULE (5,000 UNITS) PO (08:41)
[2024-08-04 08:44] VITALS: BP 107/67; PULSE 67
[2024-08-04] MEDS: Metoprolol Tartrate 50 MG Tablet PO ×2 (08:44→23:32)
[2024-08-04] MEDS: BACITRACIN 15 GM Tube 1 APPLIC TOPICAL ×2 (10:00→23:22)
[2024-08-04] MEDS: Magnesium Chloride 64 MG Delay Rel.Tablet 128 MG PO (12:14)
--- NOTE | 2024-08-04 14:51 | CASEMGMT ---
Social Work Received return email from Gabbi that Jose can accept pt on 08/13 after IV ATB and requesting [facility] PT/OT/SN for ongoing wound care, and [facility] follows [place] patients. LYNETTE to finalize DC plans. Varsha Gardner, PHLEBOTOMY INSTRUCTOR AFLOAT CRYPTOLOGIC MANAGER
--- NOTE | 2024-08-04 14:58 | PN.SURG_ITS ---
Subjective Subjective Patient doing well. Drain removed 3 days ago. He is denying any complaints of increase pain or pressure. He denies any complaints. He states he may be getting discharged the end of next week. Objective Data Objective Data Vital Signs: Vital Signs Temp Pulse Resp BP Pulse Ox O2 Del Method O2 Flow Rate 98.2 F 67 16 107/67 94 Room Air 97 08/03/24 08:58 08/04/24 08:44 08/03/24 22:00 08/04/24 08:44 08/03/24 22:00 08/03/24 22:00 07/29/24 14:01 Oxygen Flow Rate (L/min) 97 Oxygen Delivery Method Room Air Weight: 179 lb 6.4 oz Body Mass Index (BMI) 29.8 Intake & Output: Intake and Output for Last 24 Hours 08/02/24 08/03/24 08/04/24 23:59 23:59 23:59 Intake Total 1130 / 1130 1490 / 1490 890 / 890 Output Total 475 / 475 2675 / 2675 1850 / 1850 Balance 655 / 655 -1185 / -1185 -960 / -960 Medical Nutrition Assessment Dietitian: Malnutrition Criteria Met Start: 07/12/24 13:04 Freq: Status: Active Protocol: Document 07/12/24 13:05 CHRIS (Rec: 07/12/24 13:05 SLA [email or web address]) Nutrition Malnutrition Evidence of Malnutrition Exists Yes Malnutrition (severe): Acute Illness/Injury Evidenced By Suboptimal Energy Intake ( Severe),Weight Loss (Severe) Intake Problem Increased Nutrient Needs (specify) Etiology protein related to skin status Signs/Symptoms as evidenced by spinal wound w / wound vac Status Active Problem Clinical Problem Acute Disease or Injury Related Malnutrition Etiology related to inadequate oral energy intake Signs/Symptoms as evidenced by 4.9% unintentional wt loss and po intake meeting <75% 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 Lab / Micro Data 08/01/24 05:20 08/01/24 05:20 Labs: Laboratory Results - last 24 hr 08/03/24 20:30: Vancomycin Trough 15.5 H Micro: Microbiology 07/11/24 06:00 Nasal Secretion SARS-CoV-2 Antigen (Rapid) - Final Physical Exam Narrative Incision with a couple superficial wound separations over proximal portion of incision that have improved over the past several days. No drainage. No erythema. No palpable fluid collection. Const alert and oriented x3 General Appearance: cooperative HEENT normocephalic Resp normal respiratory effort Effort and Inspection: able to speak in complete sentences Cardio regular rate Extremity full ROM and normal capillary refill Neuro oriented x3 Assessment & Plan Assessment/Plan (1) Non-pressure chronic ulcer of skin of other sites with muscle involvement without evidence of necrosis: (2) History of radiation therapy: PLAN: Plan Wound care - continue Bacitracin twice daily to the small wound separation and cover with gauze or ABD. Patient is till to pressure off load. ID managing antibiotics, patient on Vancomycin. Charges/Coding Procedures Integumentary 111xxx-113xx: [id number] Global Visit
[2024-08-04 16:00] VITALS: BP 107/67; PULSE 60; RESP 18; TEMP 36.2; O2SAT 96
[2024-08-04] MEDS: Vancomycin HCl 1,500 MG in 0.9% Normal Saline (500mL Bag) 500 ML 250 MG IV (23:01)
[2024-08-04] MEDS: Senna/Docusate Sodium 1 Tablet 2 TABLET PO (23:18)
[2024-08-04] MEDS: MELATONIN 3 MG TABLET 6 MG PO (23:19)
[2024-08-04 23:32] VITALS: BP 118/61; PULSE 58
[2024-08-05] MEDS: Ensure Plus High Protein 120 ML LIQUID PO ×3 (05:35→22:11)
[2024-08-05] MEDS: Levothyroxine 100 MCG Tablet PO (05:36)
[2024-08-05] MEDS: Gabapentin 100 MG Capsule PO ×3 (05:36→22:16)
[2024-08-05 09:51] VITALS: BP 98/60; PULSE 64; RESP 16; TEMP 36.8; O2SAT 97
[2024-08-05] MEDS: Calcium (Elemental) 500 MG Tablet PO ×2 (09:56→17:54)
[2024-08-05] MEDS: Ferrous Sulfate 325 MG Tablet PO (09:56)
[2024-08-05] MEDS: BACITRACIN 15 GM Tube 1 APPLIC TOPICAL ×2 (09:56→22:16)
[2024-08-05] MEDS: APIXABAN 5 MG TABLET PO ×2 (09:57→22:16)
[2024-08-05] MEDS: Baclofen 10 MG Tablet 5 MG PO ×2 (09:57→22:16)
[2024-08-05] MEDS: Menthol/Lanolin/Calamine/Znox 113 GM Tube 1 APPLIC TOPICAL ×2 (09:57→22:19)
[2024-08-05 09:58] VITALS: PULSE 64
[2024-08-05] MEDS: Polyethylene Glycol 3350 17 GM PACKET PO (09:58)
[2024-08-05] MEDS: Nystatin Powder 15gm Bottle 1 APPLIC TOPICAL ×2 (09:58→22:16)
[2024-08-05] MEDS: amLODIPine 10 MG Tablet PO (09:58)
[2024-08-05] MEDS: Pantoprazole Sodium 20 MG Tablet PO (09:58)
[2024-08-05] MEDS: Metoprolol Tartrate 50 MG Tablet PO ×2 (09:58→22:17)
[2024-08-05] MEDS: Ascorbic Acid 500 MG Tablet 1000 MG PO ×2 (09:59→22:16)
[2024-08-05] MEDS: Acyclovir 200 MG Capsule 400 MG PO ×2 (09:59→22:16)
[2024-08-05] MEDS: Cholecalciferol (Vit D3) 125 MCG CAPSULE (5,000 UNITS) PO (09:59)
[2024-08-05] MEDS: Magnesium Chloride 64 MG Delay Rel.Tablet 128 MG PO (13:12)
[2024-08-05] MEDS: 0.9% Saline Lock 10 ML Syringe IV (13:14)
[2024-08-05 21:55] VITALS: BP 119/64; PULSE 69
[2024-08-05] MEDS: Vancomycin HCl 1,500 MG in 0.9% Normal Saline (500mL Bag) 500 ML 250 MG IV (22:15)
[2024-08-05] MEDS: MELATONIN 3 MG TABLET 6 MG PO (22:16)
[2024-08-05 22:17] VITALS: BP 119/64; PULSE 69
[2024-08-06] MEDS: Gabapentin 100 MG Capsule PO ×3 (06:19→21:30)
[2024-08-06] MEDS: Levothyroxine 100 MCG Tablet PO (06:19)
[2024-08-06] MEDS: Ensure Plus High Protein 120 ML LIQUID PO ×3 (06:19→21:47)
[2024-08-06 10:01] VITALS: BP 103/53; PULSE 58; RESP 17; TEMP 36.8; O2SAT 98
[2024-08-06] MEDS: Menthol/Lanolin/Calamine/Znox 113 GM Tube 1 APPLIC TOPICAL ×2 (10:03→21:41)
[2024-08-06] MEDS: Calcium (Elemental) 500 MG Tablet PO ×2 (10:03→16:30)
[2024-08-06] MEDS: BACITRACIN 15 GM Tube 1 APPLIC TOPICAL ×2 (10:03→21:39)
[2024-08-06] MEDS: Ferrous Sulfate 325 MG Tablet PO (10:03)
[2024-08-06 10:04] VITALS: PULSE 58
[2024-08-06] MEDS: Baclofen 10 MG Tablet 5 MG PO ×2 (10:04→21:40)
[2024-08-06] MEDS: Metoprolol Tartrate 50 MG Tablet PO ×2 (10:04→21:48)
[2024-08-06] MEDS: APIXABAN 5 MG TABLET PO ×2 (10:04→21:39)
[2024-08-06] MEDS: Polyethylene Glycol 3350 17 GM PACKET PO (10:05)
[2024-08-06] MEDS: Nystatin Powder 15gm Bottle 1 APPLIC TOPICAL ×2 (10:05→21:40)
[2024-08-06] MEDS: amLODIPine 10 MG Tablet PO (10:05)
[2024-08-06] MEDS: Pantoprazole Sodium 20 MG Tablet PO (10:05)
[2024-08-06] MEDS: Cholecalciferol (Vit D3) 125 MCG CAPSULE (5,000 UNITS) PO (10:06)
[2024-08-06] MEDS: Acyclovir 200 MG Capsule 400 MG PO ×2 (10:06→21:39)
[2024-08-06] MEDS: Ascorbic Acid 500 MG Tablet 1000 MG PO ×2 (10:06→21:39)
[2024-08-06] MEDS: Magnesium Chloride 64 MG Delay Rel.Tablet 128 MG PO (13:21)
[2024-08-06] MEDS: 0.9% Saline Lock 10 ML Syringe IV ×3 (16:31→23:59)
[2024-08-06] MEDS: Vancomycin HCl 1,500 MG in 0.9% Normal Saline (500mL Bag) 500 ML 250 MG IV (21:30)
[2024-08-06] MEDS: MELATONIN 3 MG TABLET 6 MG PO (21:39)
[2024-08-06 21:48] VITALS: BP 104/62; PULSE 64
[2024-08-07] MEDS: Ensure Plus High Protein 120 ML LIQUID PO ×3 (05:49→22:24)
[2024-08-07] MEDS: Levothyroxine 100 MCG Tablet PO (05:49)
[2024-08-07] MEDS: Gabapentin 100 MG Capsule PO ×3 (05:50→22:29)
--- NOTE | 2024-08-07 07:47 | PN.TCU_ITS ---
Subjective Subjective Resident seen, examined for regulatory visit. He has no new problems, concerns, issues, complaints. Drain out. Plastic surgery following: Objective Data Objective Data Vital Signs: Vital Signs Temp Pulse Resp BP Pulse Ox O2 Del Method O2 Flow Rate 98.2 F 64 17 104/62 98 Room Air 97 08/06/24 10:01 08/06/24 21:48 08/06/24 10:01 08/06/24 21:48 08/06/24 10:01 08/06/24 16:35 07/29/24 14:01 Oxygen Flow Rate (L/min) 97 Oxygen Delivery Method Room Air Weight: 81.374 kg Body Mass Index (BMI) 29.8 Intake & Output: Intake and Output for Last 24 Hours 08/05/24 08/06/24 08/07/24 23:59 23:59 23:59 Intake Total 1500 / 1500 1230 / 1760 530 / 530 Output Total 3300 / 3300 2300 / 2300 1175 / 1175 Balance -1800 / -1800 -1070 / -540 -645 / -645 Medical Nutrition Assessment Dietitian: Malnutrition Criteria Met Start: 07/12/24 13:04 Freq: Status: Active Protocol: Document 07/12/24 13:05 SLA (Rec: 07/12/24 13:05 SLA [email or web address]) Nutrition Malnutrition Evidence of Malnutrition Exists Yes Malnutrition (severe): Acute Illness/Injury Evidenced By Suboptimal Energy Intake ( Severe),Weight Loss (Severe) Intake Problem Increased Nutrient Needs (specify) Etiology protein related to skin status Signs/Symptoms as evidenced by spinal wound w / wound vac Status Active Problem Clinical Problem Acute Disease or Injury Related Malnutrition Etiology related to inadequate oral energy intake Signs/Symptoms as evidenced by 4.9% unintentional wt loss and po intake meeting <75% 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 Lab / Micro Data 08/01/24 05:20 08/01/24 05:20 Micro: Microbiology 07/11/24 06:00 Nasal Secretion SARS-CoV-2 Antigen (Rapid) - Final Physical Exam Const alert General Appearance: cooperative HEENT normocephalic Eyes PERRL and EOMs intact bilaterally Neck supple, no JVD and no carotid bruits Resp normal respiratory effort, normal air movement and clear to auscultation bilaterally Cardio regular rate and regular rhythm GI normal to inspection, nondistended, normoactive bowel sounds, non-tender and non-distended Extremity normal capillary refill Extremity Narrative: Right upper arm port. General Extremity: Negative for edema Skin no rashes or lesions noted General Skin Exam: no breakdown Wound Narrative: Upper thoracic/lower cervical wound with wound VAC. Neuro moves all extremities Neuro Narrative: Bilateral lower extremity weakness. Psych affect normal Appearance: appropriate Assessment & Plan Assessment/Plan (1) Debility: (2) Open wound of tissue overlying spine: QUALIFIERS: Encounter type: initial encounter Laterality: u nspecified laterality Qualified Code(s): S21.209A - Unspecified open wound of unspecified back wall of thorax without penetration into thoracic cavity, initial encounter (3) Osteomyelitis of thoracic spine: (4) Paraplegia: (5) Multiple myeloma: (6) Essential (primary) hypertension: (7) Neuropathic pain: (8) Insomnia: (9) GERD (gastroesophageal reflux disease): (10) Muscle spasm: PLAN: Plan 68 year old male with below past medical history hospitalized with thoracic spine osteomyelitis, overlying wound, underwent surgical excision/debridement with placement of wound VAC, admitted to TCU with debility, here for rehabilitation, strengthening, intravenous antibiotics, prior to discharge to [facility]. * Debility - PT/OT. * Pain - Tylenol 500mg q6 prn pain (1-10). * Bowel - Miralax 17gm daily, Senna/colace 2 tablet bid, Dulcolax 10mg pr daily prn, Magnesium citrate 300mL daily prn. * Adult immunization - Administer pneumonia vaccine, covid vaccine, flu vaccine as appropriate. * DVT prophylaxis - on Eliquis. * Herpes Zoster prophylaxis - Acyclovir 400mg q12h. * Hypertension - Metoprolol 50mg bid, Amlodipine 10mg daily. * DVT/PE - Eliquis 5mg bid. * Vitamin C deficiency - Vitamin C 1000mg bid. * Muscle spasm - Baclofen 5mg bid. * Cough - Tessalon perles 200mg tid prn. * Calcium deficiency - Calcium 500mg bidcm. * Vitamin D deficiency - D3 125mcg daily. * Iron deficiency anemia - Ferrous sulfate 325mg daily. * Neuropathic pain - Gabapentin 100mg tid. * Lower cervical/upper thoracic wound - Dr. Olivera/Nelida Morales, Bacitracin topical bid. * Skin irritation - HC topical tid prn, Calmoseptine topical bid. * Tinea Corporis - Nystatin powder topical bid. * Nutrition - Ensure Plus 120mL po tid. * Hypothyroidism - Levothyroxine 100mcg daily. * Hypomagnesemia - Magnesium chloride 128mg daily. * Insomnia - Melatonin 6mg qhs. * GERD - Pantoprazole 20mg daily. * Gas - Simethicone 80mg tid prn. * Thoracic spine osteomyelitis - Vancomycin 1250mg iv q24 thru 08/12/2024, Consult Dr. Ledbetter.
[2024-08-07 08:55] VITALS: BP 114/59; PULSE 62
[2024-08-07] MEDS: Ferrous Sulfate 325 MG Tablet PO (08:55)
[2024-08-07] MEDS: Acyclovir 200 MG Capsule 400 MG PO ×2 (08:55→22:26)
[2024-08-07] MEDS: Metoprolol Tartrate 50 MG Tablet PO ×2 (08:55→22:24)
[2024-08-07] MEDS: Ascorbic Acid 500 MG Tablet 1000 MG PO ×2 (08:55→22:26)
[2024-08-07] MEDS: APIXABAN 5 MG TABLET PO ×2 (08:55→22:25)
[2024-08-07] MEDS: Polyethylene Glycol 3350 17 GM PACKET PO (08:56)
[2024-08-07] MEDS: amLODIPine 10 MG Tablet PO (08:56)
[2024-08-07] MEDS: Baclofen 10 MG Tablet 5 MG PO ×2 (08:56→22:24)
[2024-08-07] MEDS: Calcium (Elemental) 500 MG Tablet PO ×2 (08:56→17:29)
[2024-08-07] MEDS: Cholecalciferol (Vit D3) 125 MCG CAPSULE (5,000 UNITS) PO (08:57)
[2024-08-07] MEDS: Pantoprazole Sodium 20 MG Tablet PO (08:57)
[2024-08-07] MEDS: BACITRACIN 15 GM Tube 1 APPLIC TOPICAL ×2 (08:59→22:25)
[2024-08-07] MEDS: Nystatin Powder 15gm Bottle 1 APPLIC TOPICAL ×2 (08:59→22:25)
[2024-08-07] MEDS: Menthol/Lanolin/Calamine/Znox 113 GM Tube 1 APPLIC TOPICAL ×2 (09:00→22:26)
[2024-08-07] MEDS: Magnesium Chloride 64 MG Delay Rel.Tablet 128 MG PO (13:53)
[2024-08-07 15:13] VITALS: BP 114/59; PULSE 62; RESP 16; TEMP 36.9; O2SAT 94
[2024-08-07 21:52] LABS: Vancomycin, Trough Level 16.3 ug/mL (5.0-15.0)
--- NOTE | 2024-08-07 22:09 | PCM.RX.CS ---
Consult Antibiotic Management Pharmacy has been consulted to manage selected antibiotic: Vancomycin Type of Intervention Type of Consult: Follow-up Suspected Infection Suspected Infection: Osteomyelitis Labs Labs: Sodium 141 mmol/L (136-145) 08/01/24 05:20 Potassium 3.8 mmol/L (3.5-5.1) 08/01/24 05:20 Chloride 106 mmol/L (98-107) 08/01/24 05:20 Carbon Dioxide 30.0 mmol/L (21.0-32.0) 08/01/24 05:20 Anion Gap 5 (5-15) 08/01/24 05:20 BUN 30 mg/dL (7-18) H 08/01/24 05:20 Creatinine 0.98 mg/dL (0.70-1.30) 08/01/24 05:20 Est GFR (MDRD) Af Amer 98 mL/min (>60) 08/01/24 05:20 Est GFR (MDRD) Non-Af 81 mL/min (>60) 08/01/24 05:20 BUN/Creatinine Ratio 30.5 RATIO (10-20) H 08/01/24 05:20 Glucose 98 mg/dL (74-106) 08/01/24 05:20 Vancomycin Trough 16.3 ug/mL (5.0-15.0) H 08/07/24 21:05 Microbiology Microbiology: Microbiology 07/11/24 06:00 Nasal Secretion SARS-CoV-2 Antigen (Rapid) - Final Dosing Weight Weight used for dosin kg Estimated Creatinine Clearance Estimated Creatinine Clearance: 71 Goal Trough Goal Trough: 15-20 mcg/mL Pharmacy Plan for Drug Dosing Pharmacy Plan for Drug Dosing: Vancomycin trough level of 16.3, drawn 23.5hrs post-dose, was within the target range of 15-20. Will continue dosing at 1500mg q24h, and will draw another trough in four days. It is noted that vancomycin therapy is scheduled to go through 08/12/24, per MD note. Pharmacy Service will continue to monitor and adjust dosing as required. Follow-Up Labs Follow-Up Labs: Trough: Vancomycin Date/Time Labs Ordered Labs to be done on [date and time ordered]: 08/11/24 @2030
[2024-08-07] MEDS: Vancomycin HCl 1,500 MG in 0.9% Normal Saline (500mL Bag) 500 ML 250 MG IV (22:18)
[2024-08-07] MEDS: 0.9 % NaCl (Sterile) Posiflush 10 mL IV (22:18)
[2024-08-07 22:24] VITALS: PULSE 72
[2024-08-07] MEDS: MELATONIN 3 MG TABLET 6 MG PO (22:25)
[2024-08-08] MEDS: Gabapentin 100 MG Capsule PO ×3 (05:05→22:09)
[2024-08-08] MEDS: Levothyroxine 100 MCG Tablet PO (05:05)
[2024-08-08] MEDS: Ensure Plus High Protein 120 ML LIQUID PO ×3 (05:07→22:08)
[2024-08-08 07:23] LABS: Erythrocyte Sedimentation Rate 10 mm/hr (0-20)
[2024-08-08 07:25] LABS: Absolute Lymphocyte Count 0.42 X10^3/uL (0.83-4.51); Absolute Neutrophil Count 2.8 X10^3/uL (2.0-7.7); Basophil# 0.04 X10^3/uL; Eosinophil# 0.15 X10^3/uL; Eosinophils% 3.8 % (0-5); Hematocrit 31.8 % (40-54); Hemoglobin 10.2 g/dL (13.0-16.5); Lymphocyte # 0.42 X10^3/ul (0.83-4.51); Lymphocyte % 10.7 % (19-41); Mean Corp Hgb Conc 32.1 g/dL (32-36); Mean Corpuscular Volume 90.3 fL (80-94); Mean Platelet Vol. 10.4 fl (6.2-12.0); Monocyte# 0.49 X10^3/uL; Monocyte% 12.5 % (0-10); NRBC Flagged by Analyzer 0 % (0-5); Neutrophil % 71.5 % (47-70); POSITIVE DIFFERENTIAL YES; Platelet Count 171 K/mm3 (150-450); RBC Distribution Width CV 14.8 % (11.6-14.6); RBC Distribution Width SD 48.6 fl (35.1-43.9); Red Blood Count 3.52 M/mm3 (4.6-6.2); White Blood Count 3.9 K/mm3 (4.4-11.0)
[2024-08-08 07:44] LABS: Anion Gap 7 (5-15); BUN 30 mg/dL (7-18); BUN/Creat Ratio 28.6 RATIO (10-20); Calcium,Total 8.9 mg/dL (8.5-10.1); Chloride 107 mmol/L (98-107); Creatinine, Serum 1.05 mg/dL (0.70-1.30); EST Glomerular Filtration Rate 75 mL/min (>60); Est Glom Filt Rate - Afr Amer 91 mL/min (>60); Estimated Creatinine Clearance 67.06 ml/min; Glucose 99 mg/dL (74-106); Sodium Level 142 mmol/L (136-145)
[2024-08-08 09:00] VITALS: BMI 30.7
[2024-08-08 10:08] VITALS: BP 115/57; PULSE 59
[2024-08-08] MEDS: Pantoprazole Sodium 20 MG Tablet PO (10:08)
[2024-08-08] MEDS: Ferrous Sulfate 325 MG Tablet PO (10:08)
[2024-08-08] MEDS: APIXABAN 5 MG TABLET PO ×2 (10:08→22:08)
[2024-08-08] MEDS: Ascorbic Acid 500 MG Tablet 1000 MG PO ×2 (10:08→22:10)
[2024-08-08] MEDS: Calcium (Elemental) 500 MG Tablet PO ×2 (10:08→16:48)
[2024-08-08] MEDS: Cholecalciferol (Vit D3) 125 MCG CAPSULE (5,000 UNITS) PO (10:08)
[2024-08-08] MEDS: Acyclovir 200 MG Capsule 400 MG PO ×2 (10:08→22:10)
[2024-08-08] MEDS: Metoprolol Tartrate 50 MG Tablet PO ×2 (10:08→22:09)
[2024-08-08] MEDS: Baclofen 10 MG Tablet 5 MG PO ×2 (10:09→22:09)
[2024-08-08] MEDS: Polyethylene Glycol 3350 17 GM PACKET PO (10:10)
[2024-08-08] MEDS: amLODIPine 10 MG Tablet PO (10:10)
[2024-08-08] MEDS: BACITRACIN 15 GM Tube 1 APPLIC TOPICAL ×2 (10:10→22:06)
[2024-08-08] MEDS: Nystatin Powder 15gm Bottle 1 APPLIC TOPICAL ×2 (10:11→22:07)
[2024-08-08] MEDS: Menthol/Lanolin/Calamine/Znox 113 GM Tube 1 APPLIC TOPICAL ×2 (10:11→22:07)
[2024-08-08] MEDS: 0.9 % NaCl (Sterile) Posiflush 10 mL IV (10:15)
[2024-08-08] MEDS: Magnesium Chloride 64 MG Delay Rel.Tablet 128 MG PO (12:42)
--- NOTE | 2024-08-08 14:57 | CASEMGMT ---
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 SW completed care coordination referral via website. Original Note: Social Work SW spoke with pt to finalize DC plans. Pt can DC 08/13 returning to [facility]. Informed Sachse uses [facility], and offered if pt would like to review a list of skilled [facility] providers. Pt denied and agreed to [facility]. Sister can transport. SW sent referral to [facility] via [email or web address]. Plan: DC 08/13 returning to [facility], [facility] PT/OT/SN Varsha Gardner, SOLIDS CONTROL TECHNICIAN JAVA PROGRAMMING PROFESSOR
[2024-08-08 15:10] VITALS: BP 105/63; PULSE 59; RESP 14; TEMP 36.4; O2SAT 98
--- NOTE | 2024-08-08 19:37 | DS.PCM_ITS ---
Providers Date of Admission: 07/10/24 Primary Care Physician: Dr. Christian Milner, Consultations 07/10/24 17:27 Consult: Onc/Wound/vp cardiovascular service line Routine Comment: Reason for Consult:: wound vac maintenence 07/10/24 17:37 Consult: Infectious Disease Routine Consulting Provider: Oren Ledbetter Reason for Consult: IV ATB/spine infection EMERGENT Consult: No MD Notified: No Date Notified: 07/10/24 Time Notified: 17:37 07/10/24 20:02 Consult: Infectious Disease Routine Consulting Provider: Oren Ledbetter Reason for Consult: Thoracic spine osteomyelitis. EMERGENT Consult: No MD Notified: Yes Date Notified: 07/10/24 Time Notified: 20:02 Method of Notification: Text Consult: Plastic Surgery Routine Consulting Provider: Oren Olivera Reason for Consult: cervical/thoracic wound s/p surgery. EMERGENT Consult: No MD Notified: Yes Date Notified: 07/11/24 Time Notified: 09:39 Method of Notification: Text Reason For Visit: INFECTED WOUNDS/TRANSAMINITIS Diagnosis Discharge Diagnosis (1) Debility: Status: Acute Code(s): R53.81 - Other malaise (2) Open wound of tissue overlying spine: Status: Inactive Code(s): S21.209A - Unspecified open wound of unspecified back wall of thorax without penetration into thoracic cavity, initial encounter Qualifiers: Encounter type: initial encounter Laterality: unspecified laterality Q ualified Code(s): S21.209A - Unspecified open wound of unspecified back wall of thorax without penetration into thoracic cavity, initial encounter (3) Osteomyelitis of thoracic spine: Status: Acute Code(s): M46.24 - Osteomyelitis of vertebra, thoracic region (4) Paraplegia: Status: Inactive Code(s): G82.20 - Paraplegia, unspecified (5) Multiple myeloma: Status: Chronic Code(s): C90.00 - Multiple myeloma not having achieved remission (6) Essential (primary) hypertension: Status: Acute Code(s): I10 - Essential (primary) hypertension (7) Neuropathic pain: Status: Acute Code(s): M79.2 - Neuralgia and neuritis, unspecified (8) Insomnia: Status: Acute Code(s): G47.00 - Insomnia, unspecified (9) GERD (gastroesophageal reflux disease): Status: Acute Code(s): K21.9 - Gastro-esophageal reflux disease without esophagitis (10) Muscle spasm: Status: Acute Code(s): M62.838 - Other muscle spasm Plan 68 year old male with below past medical history hospitalized with thoracic spine osteomyelitis, overlying wound, underwent surgical excision/debridement with placement of wound VAC, admitted to TCU with debility, here for rehabilitation, strengthening, intravenous antibiotics, prior to discharge to [facility]. * Debility - PT/OT. * Pain - Tylenol 500mg q6 prn pain (1-10). * Bowel - Miralax 17gm daily, Senna/colace 2 tablet bid, Dulcolax 10mg pr daily prn, Magnesium citrate 300mL daily prn. * Adult immunization - Administer pneumonia vaccine, covid vaccine, flu vaccine as appropriate. * DVT prophylaxis - on Eliquis. * Herpes Zoster prophylaxis - Acyclovir 400mg q12h. * Hypertension - Metoprolol 50mg bid, Amlodipine 10mg daily. * DVT/PE - Eliquis 5mg bid. * Vitamin C deficiency - Vitamin C 1000mg bid. * Muscle spasm - Baclofen 5mg bid. * Cough - Tessalon perles 200mg tid prn. * Calcium deficiency - Calcium 500mg bidcm. * Vitamin D deficiency - D3 125mcg daily. * Iron deficiency anemia - Ferrous sulfate 325mg daily. * Neuropathic pain - Gabapentin 100mg tid. * Lower cervical/upper thoracic wound - Dr. Olivera/Nelida Morales, Bacitracin topical bid. * Skin irritation - HC topical tid prn, Calmoseptine topical bid. * Tinea Corporis - Nystatin powder topical bid. * Nutrition - Ensure Plus 120mL po tid. * Hypothyroidism - Levothyroxine 100mcg daily. * Hypomagnesemia - Magnesium chloride 128mg daily. * Insomnia - Melatonin 6mg qhs. * GERD - Pantoprazole 20mg daily. * Gas - Simethicone 80mg tid prn. * Thoracic spine osteomyelitis - Vancomycin 1250mg iv q24 thru 08/12/2024, Consult Dr. Ledbetter. Medications at Discharge Home Medications acyclovir 400 mg tablet 400 mg PO Q12H virus 07/08/23 amlodipine 10 mg tablet 10 mg PO DAILY bp 07/08/23 ascorbic acid (vitamin C) 1,000 mg tablet 1 g PO BID supplement 07/08/23 cholecalciferol (vitamin D3) 125 mcg (5,000 unit) capsule 125 mcg PO DAILY supplement 07/08/23 gabapentin 100 mg capsule 100 mg PO TID back 07/08/23 magnesium oxide 250 mg PO .noon bowel health 07/08/23 melatonin 3 mg capsule 6 mg PO HS sleep 07/08/23 metoprolol tartrate 50 mg tablet 50 mg PO BID BP 07/08/23 omeprazole 20 mg tablet,delayed release 20 mg PO DAILY gerd 07/08/23 Disability Placard #1 ea 07/12/23 ferrous sulfate 325 mg (65 mg iron) tablet 325 mg PO DAILY supplement 07/12/23 apixaban 5 mg tablet (Eliquis) 5 mg PO BID vte prophylaxis 07/17/23 baclofen 5 mg tablet 5 mg PO BID back pain 08/12/23 calcium carbonate 600 mg PO BID supplement 08/12/23 levothyroxine 100 mcg tablet (Levo-T) 100 mcg PO DAILY thyroid 08/12/23 lenalidomide 15 mg capsule (Revlimid) 15 mg .Route .COMPLEX #21 CAPSULES 04/04/24 Hospital Course Operations - (See below.) Procedures None Summary of Care Provided Minutes Spent on Discharge: 35 Hospital Course: 68 year old male with below past medical history hospitalized with thoracic spine osteomyelitis, overlying wound, underwent surgical excision/debridement with placement of wound VAC, admitted to TCU with debility, here for rehabilitation, strengthening, intravenous antibiotics, prior to discharge to [facility]. Discharge 08/13/2024 returning to [facility] PT/OT/SN. Physical Exam Const alert General Appearance: cooperative HEENT normocephalic Eyes PERRL and EOMs intact bilaterally Neck supple, no JVD and no carotid bruits Resp normal respiratory effort, normal air movement and clear to auscultation bilaterally Cardio regular rate and regular rhythm GI normal to inspection, nondistended, normoactive bowel sounds, non-tender and non-distended Extremity normal capillary refill Extremity Narrative: Right upper arm port. General Extremity: Negative for edema Skin no rashes or lesions noted General Skin Exam: no breakdown Wound Narrative: Upper thoracic/lower cervical wound near healed. Neuro moves all extremities Neuro Narrative: Bilateral lower extremity weakness. Psych affect normal Appearance: appropriate Medical Records Data Medical Nutrition Assessment Dietitian: Malnutrition Criteria Met Start: 07/12/24 13:04 Freq: Status: Active Protocol: Document 07/12/24 13:05 CHRIS (Rec: 07/12/24 13:05 [facility] [id number]) Nutrition Malnutrition Evidence of Malnutrition Exists Yes Malnutrition (severe): Acute Illness/Injury Evidenced By Suboptimal Energy Intake ( Severe),Weight Loss (Severe) Intake Problem Increased Nutrient Needs (specify) Etiology protein related to skin status Signs/Symptoms as evidenced by spinal wound w / wound vac Status Active Problem Clinical Problem Acute Disease or Injury Related Malnutrition Etiology related to inadequate oral energy intake Signs/Symptoms as evidenced by 4.9% unintentional wt loss and po intake 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 Weight / BMI Weight Weight: 83.688 kg Body Mass Index (BMI) 30.7 ABG / Lab / Microbiology Data 08/08/24 06:30 08/08/24 06:30 Laboratory: Laboratory Results - last 24 hr 08/07/24 21:05: Vancomycin Trough 16.3 H 08/08/24 06:30: WBC 3.9 L, RBC 3.52 L, Hgb 10.2 L, Hct 31.8 L, MCV 90.3, MCH 29.0, MCHC 32.1, RDW Std Deviation 48.6 H, RDW Coeff of Hattie 14.8 H, Plt Count 171, MPV 10.4, Immature Gran % (Auto) 0.500, Neut % (Auto) 71.5 H, Lymph % (Auto) 10.7 L, [place] % (Auto) 12.5 H, Eos % (Auto) 3.8, Baso % (Auto) 1.0, Absolute Neuts (auto) 2.8, Absolute Lymphs (auto) 0.42 L, Nucleated RBC % 0, ESR 10, Sodium 142, Potassium 4.0, Chloride 107, Carbon Dioxide 29.0, Anion Gap 7, B UN 30 H, Creatinine 1.05, Estim Creat Clear Calc 67.06, Est GFR (MDRD) Af Amer 91, Est GFR (MDRD) Non-Af 75, BUN/Creatinine Ratio 28.6 H, Glucose 99, Calcium 8.9 Microbiology: Microbiology 07/11/24 06:00 Nasal Secretion SARS-CoV-2 Antigen (Rapid) - Final D/C Instructions Discharge Diet: No restrictions Discharge Activity: Return to Normal Activity, May Shower and Use Walker Weight Bearing Status: Weight bearing as tolerated Call your doctor if you observe: Fever of 101 or Higher, Inability to urinate, Inability to have a bowel movement, Shortness of breath, Dizziness, Fainting spells, Swelling in the ankles, Chest pain and Uncontrolled pain Additional Instructions: Discharge 08/13/2024 returning to [facility] PT/OT/SN. Meaningful Use Info Meaningful Use Meaningful Use Diagnoses (Choose all that apply): None applicable Ischemic Stroke Statin Dosing Therapy Reference: STATIN DOSE THERAPY REFERENCE: * Patients > 75 years receive moderate or high dose statin therapy. * Patients 75 years or YOUNGER should receive HIGH intensity statin dose unless contraindicated. You will be required to document reason for non-treatment if statin daily dose does not meet guidelines. HIGH DOSE STATIN THERAPY DAILY Atorvastatin > than or = to 40 mg Rosuvastatin > than or = to 20 mg Amlodipine + Atorvastatin > than or = to 2.5/40 mg Ezetimibe + Simvastatin 10/80 mg Simvastatin 80mg Discharge Plan Admission Admit Date/Time: 07/10/24 17:05 Primary Reason for Your Visit: Debility. Attending Provider: Burt Kaba Chi Primary Care Provider: Christian Milner Consulting Providers: Oren Ledbetter; Oren Olivera Instructions Additional Instructions / Restrictions: Discharge 08/13/2024 returning to [facility] PT/OT/SN. Discharge Orders/Prescriptions Prescriptions: Continued ferrous sulfate 325 mg (65 mg iron) tablet 325 mg PO DAILY acyclovir 400 mg tablet 400 mg PO Q12H amlodipine 10 mg tablet 10 mg PO DAILY gabapentin 100 mg capsule 100 mg PO TID magnesium oxide 400 mg magnesium tablet 250 mg PO .noon melatonin 3 mg capsule 6 mg PO HS metoprolol tartrate 50 mg tablet 50 mg PO BID omeprazole 20 mg tablet,delayed release (DR/EC) 20 mg PO DAILY Patient Comments: Do not take with Vitamin C or Vitamin D together. ascorbic acid (vitamin C) 1,000 mg tablet 1 g PO BID cholecalciferol (vitamin D3) 125 mcg (5,000 unit) capsule 125 mcg PO DAILY Eliquis 5 mg tablet 5 mg PO BID levothyroxine [Levo-T] 100 mcg tablet 100 mcg PO DAILY baclofen 5 mg tablet 5 mg PO BID calcium carbonate 600 mg calcium (1,500 mg) tablet 600 mg PO BID lenalidomide [Revlimid] 15 mg capsule 15 mg .ROUTE .COMPLEX Qty: 21 6RF Rx Instructions: 15 mg; 3 weeks on then 1 week rest Discontinued acetaminophen 500 mg capsule 500 mg PO Q6H PRN (Reason: fever or pain) diphenhydramine HCl [Benadryl] 25 mg capsule 25 mg PO ONCE PRN (Reason: itching) Rx Instructions: 1 hour before Darzalex injection sennosides-docusate sodium [Senna Plus] 8.6-50 mg tablet 1 tab-cap PO BID simethicone [Gas Relief (simethicone)] 80 mg tablet,chewable 80 mg PO TID PRN (Reason: abdominal distention) magnesium hydroxide [Milk of Magnesia] 400 mg/5 mL suspension 30 ml PO DAILY PRN (Reason: constipation) polyethylene glycol 3350 [ClearLax] 17 gram/dose powder 17 g PO DAILY benzonatate 200 mg capsule 200 mg PO TID PRN (Reason: cough) bisacodyl [Dulcolax (bisacodyl)] 10 mg suppository 10 mg CO DAILY PRN PRN (Reason: constipation) Ariel 7-7-1.5 gram powder in packet 1 ea PO DAILY dexamethasone 4 mg tablet 20 mg PO Q28D Patient Comments: every 28 days on Rx Instructions: 20 mg orally Days 1 and 2 of each treatment cycle; cycles are repeated at 4 weeks intervals. vancomycin 1.25 gram recon soln 1.25 g IV Q24H 37 Days Rx Instructions: stop date 08/12/24. Dx: spine osteomyelitis. Weekly bmp, cbc, vanc trough, and esr. Fax to [phone]. Routine picc care per protocol. No Action (DME) Disability Placard See Rx Instructions .Route .MEDSUPPLY Qty: 1 0RF Rx Instructions: Lifetime Referrals / Follow Up: Christian Milner DO [Primary Care Provider] - Disposition Disposition (needs filled in before D/C Order can be placed): Assisted Living
[2024-08-08 22:09] VITALS: BP 123/67; PULSE 60
[2024-08-08] MEDS: MELATONIN 3 MG TABLET 6 MG PO (22:09)
[2024-08-08] MEDS: 0.9% Saline Lock 10 ML Syringe IV (22:13)
[2024-08-08] MEDS: Vancomycin HCl 1,500 MG in 0.9% Normal Saline (500mL Bag) 500 ML 250 MG IV (22:13)
[2024-08-08 22:17] VITALS: BP 123/67; PULSE 60
[2024-08-09] MEDS: Levothyroxine 100 MCG Tablet PO (06:41)
[2024-08-09] MEDS: Ensure Plus High Protein 120 ML LIQUID PO ×2 (06:41→13:41)
[2024-08-09] MEDS: Gabapentin 100 MG Capsule PO ×3 (06:41→20:48)
--- NOTE | 2024-08-09 07:14 | PCM.PN.BLA ---
Progress Note Doing well overall. No upper back/neck pain. No fevers or chills. Physical Exam Narrative BACK INCISION Upper portion of the incision healing well. Has re-epithelialized. No drainage. No induration. No palpable fluid collections. Const alert and oriented x3 Neck full ROM Resp normal respiratory effort Cardio regular rate Assessment & Plan Assessment/Plan (1) Non-pressure chronic ulcer of skin of other sites with muscle involvement without evidence of necrosis: PLAN: Plastics to continue to follow Continue pressure offloading. He is to finish IV antibiotics per ID on 12 Aug 2024 (3 days from now) and will be discharged from the hospital back to outpatient rehabilitation center (appropriate from plastic surgery standpoint). Procedures Integumentary [id number]: [id number] Global Visit
[2024-08-09 09:24] VITALS: BP 110/66; PULSE 61
[2024-08-09] MEDS: amLODIPine 10 MG Tablet PO (09:24)
[2024-08-09] MEDS: Acyclovir 200 MG Capsule 400 MG PO ×2 (09:24→20:48)
[2024-08-09] MEDS: Metoprolol Tartrate 50 MG Tablet PO ×2 (09:24→20:49)
[2024-08-09] MEDS: Calcium (Elemental) 500 MG Tablet PO ×2 (09:24→16:53)
[2024-08-09] MEDS: Ascorbic Acid 500 MG Tablet 1000 MG PO ×2 (09:24→20:48)
[2024-08-09] MEDS: APIXABAN 5 MG TABLET PO ×2 (09:24→20:48)
[2024-08-09] MEDS: Pantoprazole Sodium 20 MG Tablet PO (09:25)
[2024-08-09] MEDS: Ferrous Sulfate 325 MG Tablet PO (09:25)
[2024-08-09] MEDS: Polyethylene Glycol 3350 17 GM PACKET PO (09:25)
[2024-08-09] MEDS: BACITRACIN 15 GM Tube 1 APPLIC TOPICAL ×2 (09:25→20:55)
[2024-08-09] MEDS: Cholecalciferol (Vit D3) 125 MCG CAPSULE (5,000 UNITS) PO (09:25)
[2024-08-09] MEDS: Nystatin Powder 15gm Bottle 1 APPLIC TOPICAL ×2 (09:25→20:54)
[2024-08-09] MEDS: Baclofen 10 MG Tablet 5 MG PO ×2 (09:25→20:48)
[2024-08-09] MEDS: Menthol/Lanolin/Calamine/Znox 113 GM Tube 1 APPLIC TOPICAL ×2 (09:26→20:54)
[2024-08-09] MEDS: Magnesium Chloride 64 MG Delay Rel.Tablet 128 MG PO (11:11)
[2024-08-09] MEDS: 0.9 % NaCl (Sterile) Posiflush 10 mL IV (13:12)
--- NOTE | 2024-08-09 13:42 | PCM.PN.ID ---
Physical Exam Narrative Feeling better, no fever, wound much improved, no n/v/d. Const alert and no apparent distress General Appearance: cooperative Resp normal air movement and clear to auscultation bilaterally Cardio regular rate and regular rhythm GI soft to palpation, non-tender and non-distended Skin no rashes or lesions noted ID ID: Route of nutrition/ use of supplements: [] Nutritional Intake: [] IV Site: [] Humphries Catheter: [] Assessment & Plan Assessment/Plan (1) Osteomyelitis of thoracic spine: PLAN: wound cx with MRSA and GPR (MRSA pcr positive), seen by plastic surgery and spine surgery, OR 06/26/24 for I&D down to hardware. On vanc. ucx with small growth enterococcus. Surg cx 06/26 with enterococcus, S lugdunensus and S. epi. Plan is for 6 weeks iv vanc dosed through port, stop date 08/12/24. Wound much improved. On 08/12, ok for stopping vanc, removing picc, change to po doxy 100mg bid and amoxicillin 500mg bid for planned 6-12 month course. ID followup in 2-3 months. Will follow
--- NOTE | 2024-08-09 15:10 | WOUNDNOTE ---
wound photo: mid upper back
--- NOTE | 2024-08-09 15:14 | CASEMGMT ---
Addendum entered by Varsha Gardner 08/10/24 08:15: [facility] can accept. LYNETTE updated Jose. Original Note: Social Work SW [facility] after accepting [facility] pt, that they need to deny the patient citing Look like we can not accept the pt due to poor history with him will need referred elsewhere. This worker requested additional information on changing the answer of acceptance, Shanice replied, Per our administration we can not accept Pt back due to him being added to our poor patient history list Prior he was a daily wound care and even if he isn't right now, we cannot staff his wounds? LYNETTE contacted the food manager, Migue, at [facility] to notify of the denial, as Migue contacted this worker at time of pt's admission that Shanice was following the pt and can assist at [place]. LYNETTE spoke with pt to update and pt has no other preference and denied list, but did agree to [facility]. LYNETTE phoned referral to [facility]. Will notify Jose if [facility] can accept. Varsha Gardner, [facility] [place]
[2024-08-09 16:00] VITALS: BP 102/66; PULSE 60; RESP 16; TEMP 36.6; O2SAT 96
[2024-08-09] MEDS: Senna/Docusate Sodium 1 Tablet 2 TABLET PO (20:48)
[2024-08-09] MEDS: MELATONIN 3 MG TABLET 6 MG PO (20:48)
[2024-08-09 20:49] VITALS: BP 104/65; PULSE 61
[2024-08-09] MEDS: Vancomycin HCl 1,500 MG in 0.9% Normal Saline (500mL Bag) 500 ML 250 MG IV (20:49)
[2024-08-09] MEDS: 0.9% Saline Lock 10 ML Syringe IV (20:49)
[2024-08-10] MEDS: Levothyroxine 100 MCG Tablet PO (06:10)
[2024-08-10] MEDS: Gabapentin 100 MG Capsule PO ×3 (06:10→22:39)
[2024-08-10 08:51] VITALS: BP 115/62; PULSE 60; RESP 16; TEMP 36.9; O2SAT 96
[2024-08-10] MEDS: BACITRACIN 15 GM Tube 1 APPLIC TOPICAL ×2 (08:59→22:31)
[2024-08-10] MEDS: Calcium (Elemental) 500 MG Tablet PO ×2 (09:00→16:44)
[2024-08-10] MEDS: Ferrous Sulfate 325 MG Tablet PO (09:00)
[2024-08-10] MEDS: Menthol/Lanolin/Calamine/Znox 113 GM Tube 1 APPLIC TOPICAL ×2 (09:00→22:48)
[2024-08-10] MEDS: APIXABAN 5 MG TABLET PO ×2 (09:01→22:32)
[2024-08-10] MEDS: Baclofen 10 MG Tablet 5 MG PO ×2 (09:01→22:32)
[2024-08-10 09:02] VITALS: PULSE 60
[2024-08-10] MEDS: Polyethylene Glycol 3350 17 GM PACKET PO (09:02)
[2024-08-10] MEDS: amLODIPine 10 MG Tablet PO (09:02)
[2024-08-10] MEDS: Metoprolol Tartrate 50 MG Tablet PO ×2 (09:02→22:34)
[2024-08-10] MEDS: Nystatin Powder 15gm Bottle 1 APPLIC TOPICAL ×2 (09:02→22:49)
[2024-08-10] MEDS: Cholecalciferol (Vit D3) 125 MCG CAPSULE (5,000 UNITS) PO (09:03)
[2024-08-10] MEDS: Pantoprazole Sodium 20 MG Tablet PO (09:03)
[2024-08-10] MEDS: Senna/Docusate Sodium 1 Tablet 2 TABLET PO ×2 (09:03→22:34)
[2024-08-10] MEDS: Ascorbic Acid 500 MG Tablet 1000 MG PO ×2 (09:03→22:36)
[2024-08-10] MEDS: Acyclovir 200 MG Capsule 400 MG PO ×2 (09:04→22:35)
--- NOTE | 2024-08-10 09:24 | MDS.RN ---
Pain interview for MDS completed.
[2024-08-10] MEDS: Magnesium Chloride 64 MG Delay Rel.Tablet 128 MG PO (11:59)
[2024-08-10] MEDS: 0.9% Saline Lock 10 ML Syringe IV (14:11)
[2024-08-10] MEDS: Vancomycin HCl 1,500 MG in 0.9% Normal Saline (500mL Bag) 500 ML 250 MG IV (22:05)
[2024-08-10 22:34] VITALS: BP 107/64; PULSE 55
[2024-08-10] MEDS: MELATONIN 3 MG TABLET 6 MG PO (22:34)
[2024-08-10 23:00] VITALS: RESP 16
[2024-08-11] MEDS: Gabapentin 100 MG Capsule PO ×3 (05:45→22:22)
[2024-08-11] MEDS: Levothyroxine 100 MCG Tablet PO (05:45)
--- NOTE | 2024-08-11 07:48 | PCM.PN.BLA ---
Progress Note Doing well. No pain/tearing sensations . No fevers or chills. Physical Exam Narrative BACK INCISION Upper portion of the incision healing well. Has re-epithelialized. No drainage. No induration. No palpable fluid collections. Const alert and oriented x3 Neck full ROM Resp normal respiratory effort Cardio regular rate Assessment & Plan Assessment/Plan (1) Non-pressure chronic ulcer of skin of other sites with muscle involvement without evidence of necrosis: PLAN: Plastics will sign off at this time and follow up in clinic with the patient in 2 weeks. He is to finish IV antibiotics per ID on 12 Aug 2024 (tomorrow) and will be discharged from the hospital back to outpatient rehabilitation center on Wednesday, 13 Aug 2024 (appropriate from plastic surgery standpoint). Dry dressing going forward to pad the back incision No other wound care.
[2024-08-11 09:44] VITALS: BP 99/61; PULSE 68; RESP 18; TEMP 36.5
[2024-08-11] MEDS: BACITRACIN 15 GM Tube 1 APPLIC TOPICAL (09:49)
[2024-08-11] MEDS: Ferrous Sulfate 325 MG Tablet PO (09:49)
[2024-08-11] MEDS: Calcium (Elemental) 500 MG Tablet PO ×2 (09:49→16:38)
[2024-08-11] MEDS: Menthol/Lanolin/Calamine/Znox 113 GM Tube 1 APPLIC TOPICAL (09:50)
[2024-08-11] MEDS: Baclofen 10 MG Tablet 5 MG PO ×2 (09:50→22:25)
[2024-08-11] MEDS: APIXABAN 5 MG TABLET PO ×2 (09:50→22:25)
[2024-08-11] MEDS: Ascorbic Acid 500 MG Tablet 1000 MG PO ×2 (09:51→22:24)
[2024-08-11] MEDS: Nystatin Powder 15gm Bottle 1 APPLIC TOPICAL ×2 (09:51→22:23)
[2024-08-11] MEDS: Polyethylene Glycol 3350 17 GM PACKET PO (09:51)
[2024-08-11] MEDS: Senna/Docusate Sodium 1 Tablet 2 TABLET PO ×2 (09:51→22:24)
[2024-08-11] MEDS: Pantoprazole Sodium 20 MG Tablet PO (09:51)
[2024-08-11] MEDS: Cholecalciferol (Vit D3) 125 MCG CAPSULE (5,000 UNITS) PO (09:52)
[2024-08-11] MEDS: Acyclovir 200 MG Capsule 400 MG PO ×2 (09:52→22:24)
[2024-08-11] MEDS: 0.9% Saline Lock 10 ML Syringe IV ×2 (09:52→22:22)
--- NOTE | 2024-08-11 10:28 | CASEMGMT ---
Social Work SW completed BIMS () and PHQ-2 () for MDS assessment. Varsha Gardner MSW [employer] SAL[employer] TRA[employer]
[2024-08-11] MEDS: Magnesium Chloride 64 MG Delay Rel.Tablet 128 MG PO (12:32)
[2024-08-11 12:37] VITALS: BP 115/66; PULSE 58
[2024-08-11 12:40] VITALS: PULSE 58
[2024-08-11] MEDS: Metoprolol Tartrate 50 MG Tablet PO ×2 (12:40→22:26)
[2024-08-11] MEDS: amLODIPine 10 MG Tablet PO (12:40)
[2024-08-11 21:05] LABS: Vancomycin, Trough Level 16.6 ug/mL (5.0-15.0)
--- NOTE | 2024-08-11 21:17 | PCM.RX.CS ---
Consult Antibiotic Management Pharmacy has been consulted to manage selected antibiotic: Vancomycin Type of Intervention Type of Consult: Follow-up Suspected Infection Suspected Infection: Skin/Soft tissue Labs Labs: Sodium 142 mmol/L (136-145) 08/08/24 06:30 Potassium 4.0 mmol/L (3.5-5.1) 08/08/24 06:30 Chloride 107 mmol/L (98-107) 08/08/24 06:30 Carbon Dioxide 29.0 mmol/L (21.0-32.0) 08/08/24 06:30 Anion Gap 7 (5-15) 08/08/24 06:30 BUN 30 mg/dL (7-18) H 08/08/24 06:30 Creatinine 1.05 mg/dL (0.70-1.30) 08/08/24 06:30 Est GFR (MDRD) Af Amer 91 mL/min (>60) 08/08/24 06:30 Est GFR (MDRD) Non-Af 75 mL/min (>60) 08/08/24 06:30 BUN/Creatinine Ratio 28.6 RATIO (10-20) H 08/08/24 06:30 Glucose 99 mg/dL (74-106) 08/08/24 06:30 Vancomycin Trough 16.6 ug/mL (5.0-15.0) H 08/11/24 20:30 Microbiology Microbiology: Microbiology 08/11/24 08:36 Nasal Secretion SARS-CoV-2 Antigen (Rapid) - Final 07/11/24 06:00 Nasal Secretion SARS-CoV-2 Antigen (Rapid) - Final Goal Trough Goal Trough: 15-20 mcg/mL Pharmacy Plan for Drug Dosing Pharmacy Plan for Drug Dosing: VANCOMYCIN LEVEL RECEIVED Current Vancomycin Dose: 1500mg Q24H Number of Doses Received: numerous Vancomycin Level: 16.6 Hours Since Last Dose: 22.5 Renal Function: NNL Vancomycin Plan/Comments: Continue Vancomycin 1500mg Q24H through 08/12/24 per physician's order Pending Level: N/A - Vancomycin therapy to stop tomorrow. Will order appropriate trough level if continued. Pharmacy Service will continue to monitor and adjust dosing as required.
[2024-08-11] MEDS: Vancomycin HCl 1,500 MG in 0.9% Normal Saline (500mL Bag) 500 ML 250 MG IV (22:19)
[2024-08-11] MEDS: Vancomycin Trough/Random Due 1 LAB MC (22:23)
[2024-08-11] MEDS: MELATONIN 3 MG TABLET 6 MG PO (22:25)
[2024-08-11 22:26] VITALS: BP 109/60; PULSE 58
[2024-08-11 22:30] VITALS: PULSE 58; RESP 16
[2024-08-11 22:33] VITALS: BP 109/60; PULSE 58
[2024-08-12] MEDS: Gabapentin 100 MG Capsule PO ×3 (06:15→22:01)
[2024-08-12] MEDS: Levothyroxine 100 MCG Tablet PO (06:15)
[2024-08-12] MEDS: Senna/Docusate Sodium 1 Tablet 2 TABLET PO ×2 (09:01→22:07)
[2024-08-12] MEDS: Polyethylene Glycol 3350 17 GM PACKET PO (09:01)
[2024-08-12] MEDS: APIXABAN 5 MG TABLET PO ×2 (09:02→22:03)
[2024-08-12] MEDS: Nystatin Powder 15gm Bottle 1 APPLIC TOPICAL ×2 (09:02→22:04)
[2024-08-12] MEDS: Ferrous Sulfate 325 MG Tablet PO (09:02)
[2024-08-12] MEDS: Cholecalciferol (Vit D3) 125 MCG CAPSULE (5,000 UNITS) PO (09:02)
[2024-08-12] MEDS: Pantoprazole Sodium 20 MG Tablet PO (09:02)
[2024-08-12] MEDS: Ascorbic Acid 500 MG Tablet 1000 MG PO ×2 (09:02→22:06)
[2024-08-12] MEDS: Baclofen 10 MG Tablet 5 MG PO ×2 (09:02→22:06)
[2024-08-12] MEDS: Calcium (Elemental) 500 MG Tablet PO ×2 (09:02→17:35)
[2024-08-12] MEDS: Acyclovir 200 MG Capsule 400 MG PO ×2 (09:02→22:02)
[2024-08-12 09:03] VITALS: BP 106/63; PULSE 59
[2024-08-12] MEDS: amLODIPine 10 MG Tablet PO (09:03)
[2024-08-12] MEDS: Menthol/Lanolin/Calamine/Znox 113 GM Tube 1 APPLIC TOPICAL ×2 (09:03→22:04)
[2024-08-12] MEDS: Metoprolol Tartrate 50 MG Tablet PO ×2 (09:03→22:05)
[2024-08-12] MEDS: 0.9 % NaCl (Sterile) Posiflush 10 mL IV ×2 (09:08→22:00)
[2024-08-12] MEDS: Magnesium Chloride 64 MG Delay Rel.Tablet 128 MG PO (11:50)
[2024-08-12 13:30] VITALS: PULSE 59
[2024-08-12 13:42] VITALS: BP 100/61; PULSE 55; RESP 18; TEMP 36.5; O2SAT 94
[2024-08-12] MEDS: Vancomycin HCl 1,500 MG in 0.9% Normal Saline (500mL Bag) 500 ML 250 MG IV (22:00)
[2024-08-12 22:05] VITALS: BP 124/77; PULSE 66
[2024-08-12] MEDS: MELATONIN 3 MG TABLET 6 MG PO (22:05)
[2024-08-13] MEDS: Gabapentin 100 MG Capsule PO (05:48)
[2024-08-13] MEDS: Levothyroxine 100 MCG Tablet PO (05:48)
--- NOTE | 2024-08-13 07:54 | NURSING ---
Phone call placed to [facility] to inquire about the pharmacy utilized per resident at their facility. No answer after waiting approximately 3 minutes.
[2024-08-13] MEDS: Acyclovir 200 MG Capsule 400 MG PO (08:52)
[2024-08-13 08:53] VITALS: BP 102/61; PULSE 66
[2024-08-13] MEDS: Ascorbic Acid 500 MG Tablet 1000 MG PO (08:53)
[2024-08-13] MEDS: Metoprolol Tartrate 50 MG Tablet PO (08:53)
[2024-08-13] MEDS: Cholecalciferol (Vit D3) 125 MCG CAPSULE (5,000 UNITS) PO (08:53)
[2024-08-13] MEDS: APIXABAN 5 MG TABLET PO (08:53)
[2024-08-13] MEDS: Baclofen 10 MG Tablet 5 MG PO (08:53)
[2024-08-13] MEDS: Calcium (Elemental) 500 MG Tablet PO (08:53)
[2024-08-13] MEDS: Senna/Docusate Sodium 1 Tablet 2 TABLET PO (08:55)
[2024-08-13] MEDS: amLODIPine 10 MG Tablet PO (08:55)
[2024-08-13] MEDS: Polyethylene Glycol 3350 17 GM PACKET PO (08:55)
[2024-08-13] MEDS: Ferrous Sulfate 325 MG Tablet PO (08:56)
[2024-08-13] MEDS: Pantoprazole Sodium 20 MG Tablet PO (08:56)
[2024-08-13] MEDS: Menthol/Lanolin/Calamine/Znox 113 GM Tube 1 APPLIC TOPICAL (12:05)
[2024-08-13] MEDS: Magnesium Chloride 64 MG Delay Rel.Tablet 128 MG PO (12:05)
[2024-08-13] MEDS: Nystatin Powder 15gm Bottle 1 APPLIC TOPICAL (12:06)
--- NOTE | 2024-08-13 12:38 | NURSING ---
Dr. Ledbetter back lined regarding a note he entered stating pt to be on Amoxicillin and Doxycycline for 6-12 months no orders on discharge paperwork and unsure if it was sent to pharmacy. Updated pt and Nurse at [facility] to make sure that they contact Dr. Ledbetter if they don't get the prescriptions.
[2024-08-13 13:18] VITALS: BP 121/69; PULSE 55; RESP 14; TEMP 36.6; O2SAT 98
== END 2024-08-13 13:00 | disposition home health service (06) | DRG 949 ==
PROVIDERS: Internal Medicine Infectious Disease; Admitting Provider Family Medicine Geriatric Medicine; Referring Provider Family Medicine Geriatric Medicine; Visit Provider Family Medicine Geriatric Medicine
DX: T81.89XD Other complications of procedures, not elsewhere classified, subsequent encounter (principal); M46.24 Osteomyelitis of vertebra, thoracic region; E44.1 Mild protein-calorie malnutrition; C79.51 Secondary malignant neoplasm of bone; C90.00 Multiple myeloma not having achieved remission; C79.52 Secondary malignant neoplasm of bone marrow; G82.20 Paraplegia, unspecified; L98.495 Non-pressure chronic ulcer of skin of other sites with muscle involvement without evidence of necrosis; T81.31XA Disruption of external operation (surgical) wound, not elsewhere classified, initial encounter; B95.2 Enterococcus as the cause of diseases classified elsewhere; D50.9 Iron deficiency anemia, unspecified; E03.9 Hypothyroidism, unspecified; I10 Essential (primary) hypertension; K76.0 Fatty (change of) liver, not elsewhere classified; K21.9 Gastro-esophageal reflux disease without esophagitis; E78.00 Pure hypercholesterolemia, unspecified; E55.9 Vitamin D deficiency, unspecified; G62.9 Polyneuropathy, unspecified; T66.XXXS Radiation sickness, unspecified, sequela; L59.8 Other specified disorders of the 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; B95.62 Methicillin resistant Staphylococcus aureus infection as the cause of diseases classified elsewhere; Z79.01 Long term (current) use of anticoagulants; Z79.890 Hormone replacement therapy; G47.00 Insomnia, unspecified; Z79.899 Other long term (current) drug therapy; Y79.2 Prosthetic and other implants, materials and accessory orthopedic devices associated with adverse incidents; B35.4 Tinea corporis; Z23 Encounter for immunization; Y63.3 Inadvertent exposure of patient to radiation during medical care; Y83.8 Other surgical procedures as the cause of abnormal reaction of the patient, or of later complication, without mention of misadventure at the time of the procedure; Z68.29 Body mass index [BMI] 29.0-29.9, adult
CPT/HCPCS: 36415; 80048; 80202; 85014; 85018; 85025; 85652; 87811; 90480; 90677; 91322; 97110; 97116; 97162; 97166; 97530; 97535; 97802; J7040; J7050; A4216

== ENCOUNTER 2024-10-02 18:09 | Emergency (ER) | payer MEDICARE, OTHER, SELFPAY ==
[2024-10-02 18:10] VITALS: BP 138/80; PULSE 73; RESP 18; TEMP 36.9; O2SAT 99
[2024-10-02 19:06] LABS: Mucous, Urine 0 SEEN /hpf (<or=2+); Squamous Epithelial Cells - UA 0 SEEN /hpf (0-5)
[2024-10-02 19:32] LABS: Color, Urine Yellow (Yellow); Glucose, Dipstick Normal (Normal); Ketone-Dipstick Negative (Negative); Leukocyte Esterase-Dipstick 500 /ul (Negative); Nitrite-Dipstick Positive (Negative); Occult Blood-Urine 10 /ul (Negative); Protein-Dipstick 15 mg/dl (Negative); Specific Gravity, Urine 1.015 (1.002-1.030); Urine Bilirubin Dipstick Negative (Negative); Urine Clarity Sl. Cloudy (Clear); Urine Urobilinogen Normal (Normal); Urine pH 6.5 (5.0 - 8.0)
--- NOTE | 2024-10-02 19:38 | EX.ED.DYSGE1 ---
HPI History of Present Illness Chief Complaint: Complaint Informant: patient Narrative Narrative: 69-year-old male has a history of multiple myeloma, he had tumors in his back affecting his spinal cord and nerves giving him leg weakness and urinary retention so he has had an indwelling Humphries catheter for couple years is currently staying in local skilled nursing. He states today his urine stopped flowing through the catheter and he felt like his bladder was full and it look like there was a lot of sediment in the urine. The nurses at the skilled nursing replace his catheter, or tried to according to the patient but there is no urine coming out. Prior to my seeing the patient here, nurses replaced his Humphries there is 400 cc of yellow nonbloody transparent urine and he feels much better now. No fevers, chills, nausea or vomiting, or abdominal pain at this time. He states the wounds on his back and been healing very well and they are doing better. He was already on antibiotics that have not been finished yet for that. 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 History of radiation therapy Non-healing surgical wound Paraplegia Anemia Multiple myeloma DVT (deep venous thrombosis) Back pain Hypothyroidism Hypertension Hypercholesteremia Home Medications ?Medication ?Instructions ?Recorded ?Last Taken ?Type acyclovir 400 mg tablet 400 mg PO Q12H virus 07/08/23 Unknown History amlodipine 10 mg tablet 10 mg PO DAILY bp 07/08/23 Unknown History ascorbic acid (vitamin C) 1,000 mg 1 g PO BID supplement 07/08/23 Unknown History tablet cholecalciferol (vitamin D3) 125 125 mcg PO DAILY supplement 07/08/23 Unknown History mcg (5,000 unit) capsule gabapentin 100 mg capsule 100 mg PO TID back 07/08/23 Unknown History magnesium oxide 250 mg PO .noon bowel health 07/08/23 Unknown History melatonin 3 mg capsule 6 mg PO HS sleep 07/08/23 Unknown History metoprolol tartrate 50 mg tablet 50 mg PO BID BP 07/08/23 Unknown History omeprazole 20 mg tablet,delayed 20 mg PO DAILY gerd 07/08/23 Unknown History release Disability Placard #1 ea 07/12/23 Unknown Rx ferrous sulfate 325 mg (65 mg 325 mg PO DAILY supplement 07/12/23 Unknown History iron) tablet apixaban 5 mg tablet (Eliquis) 5 mg PO BID vte prophylaxis 07/17/23 Unknown History baclofen 5 mg tablet 5 mg PO BID back pain 08/12/23 Unknown History calcium carbonate 600 mg PO BID supplement 08/12/23 Unknown History levothyroxine 100 mcg tablet 100 mcg PO DAILY thyroid 08/12/23 Unknown History (Levo-T) lenalidomide 15 mg capsule 15 mg .Route .COMPLEX #21 CAPSULES 04/04/24 Unknown Rx (Revlimid) amoxicillin 500 mg capsule 500 mg PO BID 08/17/24 Unknown History doxycycline hyclate 100 mg capsule 100 mg PO BID 08/17/24 Unknown History benzonatate 200 mg capsule 200 mg PO BID-TID PRN 09/13/24 Unknown History nitrofurantoin 100 mg PO Q12 #14 CAPSULES 10/02/24 Unknown Rx monohydrate/macrocrystals 100 mg capsule Allergy/AdvReac Type Severity Reaction Status Date / Time No Known Allergies Allergy Verified 10/02/24 18:10 Family History Mother Follicular lymphoma Father Hypertension Heart disease Brother Hypertension Other Cancer Surgical History History of back surgery History of tooth extraction H/O laminectomy History of cholecystectomy Social History housing: assisted living facility Smoking Status: Never smoker alcohol intake: former substance use type: does not use ROS ROS ED Constitutional Constitutional ED: Denies chills or fever(s) Genitourinary Genitourinary ED: Reports as per HPI and difficulty urinating; Denies flank pain or hematuria Musculoskeletal Musculoskeletal: Denies back pain Integumentary Denies rash Neurologic Neurologic: Reports weakness EXAM Physical Exam Const Vital Signs: 10/02/24 18:10 10/02/24 20:10 Temperature 98.5 F Temperature Source Temporal Pulse Rate 73 65 Respiratory Rate 18 18 Blood Pressure 138/80 H 120/76 Blood Pressure Mean 99 90 Pulse Ox 99 96 Oxygen Delivery Method Room Air Room Air Positive well nourished and well developed General Appearance ED: well developed and NAD Eyes PERRL and EOMs intact bilaterally Neck full ROM and supple Resp normal respiratory effort GI non-tender and non-distended Auscultation: normoactive bowel sounds Palpation: soft Narrative: Humphries catheter in penile urethra otherwise unremarkable. Transparent yellow urine 400 cc in bag, catheter flowing. Neuro oriented x3 Neuro Narrative: Weak and decreased sensation in lower extremities otherwise no focal neurologic deficits Psych mental status grossly normal Skin no rashes or lesions noted and no wounds MDM MDM MDM Narrative Medical decision making narrative: Nurses place a new catheter, resolving his urinary retention see above. Urinalysis was sent, it is positive for leukocyte esterase and nitrite, suggesting possibility of infection causing his sediment. He has pyuria as well consistent with this. Sent for culture, started on Macrobid after reviewing his list of medications from the skilled nursing, he is on amoxicillin and acyclovir and no other antiinfectious agents. The amoxicillin is to be continued for several months, presumably because of his back. He is not septic I do not think we needed any other test, he appears well he feels better and his vital signs are normal. Lab Data Attestation: I reviewed the patient's lab results. Labs: Laboratory Results - last 24 hr 10/02/24 18:55 Urine Color Yellow Urine Clarity Sl. Cloudy Urine pH 6.5 Ur Specific [place] 1.015 Urine Protein 15 H Urine Glucose (UA) Normal Urine Ketones Negative Urine Occult Blood 10 H Urine Nitrite Positive H Urine Bilirubin Negative Urine Urobilinogen Normal Ur Leukocyte Esterase 500 H Urine RBC 0-5 SEEN Urine WBC 10-25 SEEN Ur Squamous Epith Cells 0 SEEN Urine Bacteria 1+ Urine Mucus 0 SEEN Discharge Plan Triage Chief Complaint: Complaint ED Provider: Arturo Snyder Dx/Rx/DC Orders Clinical Impression: Acute urinary retention, Complicated UTI (urinary tract infection) Instructions: ED Bladder Infection, Male (Adult) Prescriptions: New nitrofurantoin monohyd/m-cryst 100 mg capsule 100 mg PO Q12 Qty: 14 0RF No Action ferrous sulfate 325 mg (65 mg iron) tablet 325 mg PO DAILY acyclovir 400 mg tablet 400 mg PO Q12H amlodipine 10 mg tablet 10 mg PO DAILY gabapentin 100 mg capsule 100 mg PO TID magnesium oxide 400 mg magnesium tablet 250 mg PO .noon melatonin 3 mg capsule 6 mg PO HS metoprolol tartrate 50 mg tablet 50 mg PO BID omeprazole 20 mg tablet,delayed release (DR/EC) 20 mg PO DAILY Patient Comments: Do not take with Vitamin C or Vitamin D together. ascorbic acid (vitamin C) 1,000 mg tablet 1 g PO BID cholecalciferol (vitamin D3) 125 mcg (5,000 unit) capsule 125 mcg PO DAILY doxycycline hyclate 100 mg capsule 100 mg PO BID amoxicillin 500 mg capsule 500 mg PO BID benzonatate 200 mg capsule 200 mg PO BID-TID PRN Eliquis 5 mg tablet 5 mg PO BID levothyroxine [Levo-T] 100 mcg tablet 100 mcg PO DAILY baclofen 5 mg tablet 5 mg PO BID calcium carbonate 600 mg calcium (1,500 mg) tablet 600 mg PO BID (DME) Disability Placard See Rx Instructions .Route .MEDSUPPLY Qty: 1 0RF Rx Instructions: Lifetime lenalidomide [Revlimid] 15 mg capsule 15 mg .ROUTE .COMPLEX Qty: 21 6RF Rx Instructions: 15 mg; 3 weeks on then 1 week rest Primary Care Provider: Christian Milner Referrals: Christian Milner DO [Primary Care Provider] - 3-5 Days if not improving Activity Restrictions/Additional Instructions: Urine culture sent. Continue amoxicillin as well as new antibiotic. Print Language: [place] Disposition Disposition: Home, Self Care
[2024-10-02 19:47] LABS: Red Blood Cells-Urine 0-5 SEEN /hpf (0-5); White Blood Cells 10-25 SEEN /hpf (0-5)
[2024-10-02 19:48] LABS: Bacteria 1+ /hpf (None Seen)
[2024-10-02 20:10] VITALS: BP 120/76; PULSE 65; RESP 18; O2SAT 96
[2024-10-02 21:49] VITALS: BP 113/69; PULSE 69; RESP 16; TEMP 36.6; O2SAT 99
[2024-10-02] MEDS: Nitrofurantoin Macrocrystals 100 MG Capsule PO (21:59)
--- NOTE | 2024-10-02 22:09 | ED.RN ---
attempted to call report, no answer.
== END 2024-10-02 22:07 | disposition home or self-care (01) ==
PROVIDERS: Emergency Provider Emergency Medicine; Referring Provider Emergency Medicine; Visit Provider Emergency Medicine
DX: N39.0 Urinary tract infection, site not specified (principal); R33.9 Retention of urine, unspecified; I10 Essential (primary) hypertension; Z79.899 Other long term (current) drug therapy; E03.9 Hypothyroidism, unspecified; Z86.718 Personal history of other venous thrombosis and embolism; Z79.01 Long term (current) use of anticoagulants; Z79.890 Hormone replacement therapy; Z90.49 Acquired absence of other specified parts of digestive tract
CPT/HCPCS: 51702; 81001; 87077; 87086; 87088; 87186; 99283

== ENCOUNTER → 2024-10-20 14:00 | Outpatient (REF) | payer MEDICARE, OTHER, SELFPAY ==
[2024-10-20 16:11] LABS: Color, Urine Yellow (Yellow); Glucose, Dipstick Normal (Normal); Ketone-Dipstick Negative (Negative); Leukocyte Esterase-Dipstick 500 /ul (Negative); Nitrite-Dipstick Negative (Negative); Occult Blood-Urine 250 /ul (Negative); Protein-Dipstick 30 mg/dl (Negative); Urine Bilirubin Dipstick Negative (Negative); Urine Clarity Sl Cloudy (Clear); Urine Urobilinogen Normal (Normal)
== END ==
PROVIDERS: Visit Provider Family Medicine
DX: T83.098A Other mechanical complication of other urinary catheter, initial encounter (principal); Z87.440 Personal history of urinary (tract) infections; N39.0 Urinary tract infection, site not specified
CPT/HCPCS: 81002; 87077; 87086; 87088; 87186

== ENCOUNTER → 2024-12-11 | Outpatient (REF) | payer MEDICARE, OTHER, SELFPAY ==
[2024-12-11 09:04] LABS: Absolute Lymphocyte Count 0.55 X10^3/uL (0.83-4.51); Absolute Neutrophil Count 3.2 X10^3/uL (2.0-7.7); Basophil# 0.03 X10^3/uL; Basophil% 0.7 % (0-1); Eosinophil# 0.11 X10^3/uL; Eosinophils% 2.5 % (0-5); Hematocrit 41.9 % (40-54); Hemoglobin 13.6 g/dL (13.0-16.5); Lymphocyte # 0.55 X10^3/ul (0.83-4.51); Lymphocyte % 12.6 % (19-41); Mean Corp Hgb Conc 32.5 g/dL (32-36); Mean Corpuscular Hgb 28.8 pg (27.0-32.0); Mean Corpuscular Volume 88.8 fL (80-94); Mean Platelet Vol. 10.6 fl (6.2-12.0); Monocyte# 0.47 X10^3/uL; Monocyte% 10.8 % (0-10); NRBC Flagged by Analyzer 0 % (0-5); Neutrophil # 3.18 X10^3/uL (2.7-7.7); Neutrophil % 72.9 % (47-70); POSITIVE DIFFERENTIAL YES; Platelet Count 156 K/mm3 (150-450); RBC Distribution Width CV 15.1 % (11.6-14.6); Red Blood Count 4.72 M/mm3 (4.6-6.2); White Blood Count 4.4 K/mm3 (4.4-11.0)
[2024-12-11 14:01] LABS: AST(SGOT) 15 U/L (<=37); Alanine Aminotransfer ALT/SGPT 12 U/L (<=46); Albumin, Serum 4.1 g/dL (3.4-4.8); Alkaline Phosphatase 55 U/L (40-129); Anion Gap 10 (5-15); BUN 18 mg/dL (4-19); BUN/Creat Ratio 17.7 RATIO (10-20); Calcium,Total 9.8 mg/dL (7.6-11.0); Carbon Dioxide 27.1 mmol/L (21.0-32.0); Chloride 102 mmol/L (98-108); EST Glomerular Filtration Rate 82 (>60); Ferritin 83 ng/mL (37-417); Glucose 92 mg/dL (70-99); Iron 38 ug/dL (65-175); Protein, Total 6.2 g/dL (5.9-8.4); Sodium Level 139 mmol/L (133-145); T4 Total, Thyroxin 7.2 ug/dL (4.5-12.1); Total Bilirubin 0.29 mg/dL (0.00-1.30)
== END ==
PROVIDERS: Referring Provider Family Medicine; Visit Provider Family Medicine
DX: C79.52 Secondary malignant neoplasm of bone marrow (principal); E03.9 Hypothyroidism, unspecified
CPT/HCPCS: 36415; 80053; 82728; 83540; 84436; 84443; 85025

== ENCOUNTER → 2025-01-04 | Outpatient (CLI) | payer MEDICARE, OTHER, SELFPAY ==
--- NOTE | 2025-01-04 15:40 | RAD_ITS ---
PROCEDURE: ABDOMEN SINGLE VIEW 01/04/2025 REASON FOR EXAM: ABD BLOATING TECHNIQUE: Single view abdomen. COMPARISON: None available FINDINGS: Bowel gas: Nonobstructive bowel gas pattern Calcifications: None Bones: Degenerative changes within the lower lumbar spine. Lucency within the proximal right femur, nonspecific. Calcification seen along the superior aspect of the greater trochanter. Bilateral hip joint space narrowing. Other: None RAD/Abdomen Single View IMPRESSION: Equivocal lucency seen within the proximal right femur, nonspecific. If there is persistent or unexplained right hip pain, further evaluation with CT pelvis would be recommended as clinically indicated. Bilateral hip osteoarthritis. Nonobstructive bowel gas pattern. Reading Location: [id number]
== END | disposition home or self-care (01) ==
LOC: RAD 15:29
PROVIDERS: Referring Provider Nurse Practitioner Family; Visit Provider Nurse Practitioner Family
DX: R14.0 Abdominal distension (gaseous) (principal)
CPT/HCPCS: 74018

== ENCOUNTER → 2025-01-11 | Outpatient (REF) | payer MEDICARE, OTHER, SELFPAY ==
[2025-01-11 11:01] LABS: Anion Gap 12 (5-15); BUN 20 mg/dL (4-19); BUN/Creat Ratio 19.3 RATIO (10-20); Calcium,Total 9.8 mg/dL (7.6-11.0); Carbon Dioxide 27.2 mmol/L (21.0-32.0); Chloride 102 mmol/L (98-108); Creatinine, Serum 1.04 mg/dL (0.70-1.20); EST Glomerular Filtration Rate 79 (>60); Glucose 98 mg/dL (70-99); Iron 42 ug/dL (65-175); Magnesium 1.7 mg/dL (1.5-2.2); Potassium 4.1 mmol/L (3.3-5.1); Sodium Level 141 mmol/L (133-145)
[2025-01-11 11:04] LABS: Ferritin 105 ng/mL (37-417); T4 Total, Thyroxin 8.3 ug/dL (4.5-12.1)
== END ==
PROVIDERS: Visit Provider Family Medicine
DX: D64.9 Anemia, unspecified (principal)
CPT/HCPCS: 36415; 80048; 82728; 83540; 83735; 84436; 84443

== ENCOUNTER 2025-01-31 16:05 | Emergency (ER) | payer MEDICARE, OTHER, SELFPAY ==
[2025-01-31 16:06] VITALS: BP 139/76; PULSE 68; RESP 18; TEMP 36.9; O2SAT 96
--- NOTE | 2025-01-31 16:42 | ED.VIS.GI ---
HPI HPI - GI History of Present Illness Chief Complaint: Abd Pain Detail of Chief Complaint: Abdominal bloating and decreased urine output Informant: patient and family Narrative Narrative: Patient presents to the emergency department with complaint of abdominal bloating and decreased urine output. Patient states he always has some abdominal bloating but it has been more excessive over the last week. Patient intermittently has to self cath and lately has had decreased urine output and having to cath self more frequently. He denies dysuria. He has history of multiple myeloma. He had back surgery in 2022 to remove some tumors and he walks with a walker. He is currently at an assisted living facility. He said no fever. He said no vomiting. He is eating and drinking. His last bowel movement was this morning where he states he had a good 1 and then had another smaller 1 later in the day. [facility] Medical History (Updated 01/31/25 @ 19:[address] 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 History of radiation therapy Non-healing surgical wound Paraplegia Anemia Multiple myeloma DVT (deep venous thrombosis) Back pain Hypothyroidism Hypertension Hypercholesteremia Home Medications ?Medication ?Instructions ?Recorded ?Last Taken ?Type acyclovir 400 mg tablet 400 mg PO Q12H virus 07/08/23 Unknown History amlodipine 10 mg tablet 10 mg PO DAILY bp 07/08/23 Unknown History ascorbic acid (vitamin C) 1,000 mg 1 g PO BID supplement 07/08/23 Unknown History tablet cholecalciferol (vitamin D3) 125 125 mcg PO DAILY supplement 07/08/23 Unknown History mcg (5,000 unit) capsule gabapentin 100 mg capsule 100 mg PO TID back 07/08/23 Unknown History magnesium oxide 250 mg PO .noon bowel health 07/08/23 Unknown History melatonin 3 mg capsule 6 mg PO HS sleep 07/08/23 Unknown History metoprolol tartrate 50 mg tablet 50 mg PO BID BP 07/08/23 Unknown History omeprazole 20 mg tablet,delayed 20 mg PO DAILY gerd 07/08/23 Unknown History release Disability Placard #1 ea 07/12/23 Unknown Rx apixaban 5 mg tablet (Eliquis) 5 mg PO BID vte prophylaxis 07/17/23 Unknown History baclofen 5 mg tablet 5 mg PO BID back pain 08/12/23 Unknown History calcium carbonate 600 mg PO BID supplement 08/12/23 Unknown History levothyroxine 100 mcg tablet 100 mcg PO DAILY thyroid 08/12/23 Unknown History (Levo-T) lenalidomide 15 mg capsule 15 mg .Route .COMPLEX #21 CAPSULES 04/04/24 Unknown Rx (Revlimid) benzonatate 200 mg capsule 200 mg PO BID-TID PRN 09/13/24 Unknown History nitrofurantoin 100 mg PO Q12 #14 CAPSULES 10/02/24 Unknown Rx monohydrate/macrocrystals 100 mg capsule Allergy/AdvReac Type Severity Reaction Status Date / Time No Known Allergies Allergy Verified 01/31/25 16:06 Family History Mother Follicular lymphoma Father Hypertension Heart disease Brother Hypertension Other Cancer Surgical History History of back surgery History of tooth extraction H/O laminectomy History of cholecystectomy Social History housing: assisted living facility Smoking Status: Never smoker alcohol intake: former substance use type: does not use ROS ROS ED Review of Systems ROS Unobtainable: other Constitutional Constitutional ED: Reports lethargy; Denies chills, fever(s), sweats or weight loss Eyes Eyes: Denies blurry vision, change in vision or diplopia ENT ENT ED: Denies rhinorrhea or sore throat Cardiovascular Cardiovascular: Denies chest pain, orthopnea or racing heartbeat Respiratory/Chest Respiratory/Chest: Denies cough, dyspnea, dyspnea on exertion, orthopnea or sputum Gastrointestinal Gastrointestinal: Reports abdominal pain and other Details: Bloating ; Denies diarrhea, nausea or vomiting Genitourinary Genitourinary ED: Reports other Details: Decreased urine output ; Denies dysuria, hematuria or urinary frequency Musculoskeletal Musculoskeletal: Denies arthralgias, back pain, myalgias or neck pain Integumentary Denies abscess, Abrasions or rash Neurologic Neurologic: Denies headache(s) or weakness Psychiatric Psychiatric: Denies anxiety, depression or suicidal thoughts Endocrine Endocrinology: Denies polydipsia, polyphagia or polyuria Hematologic/Lymphatic Hematologic/Lymphatic: Denies easy bleeding, easy bruising or lymphadenopathy Allergic/Immunologic Allergic/Immunologic ED: Denies mouth swelling, tongue swelling or urticaria EXAM Physical Exam Const Vital Signs: 01/31/25 16:06 01/31/25 18:05 Temperature 98.5 F Temperature Source Oral Pulse Rate 68 75 Respiratory Rate 18 15 Blood Pressure 139/76 H 149/80 H Blood Pressure Mean 97 103 Pulse Ox 96 97 Oxygen Delivery Method Room Air Room Air Positive well nourished and well developed General Appearance ED: well developed and NAD HEENT Reports TM's clear and moist mucous membranes normocephalic and atraumatic; Negative for trauma or tenderness Tympanic Membrane ED: Yes TM's clear Eyes PERRL and EOMs intact bilaterally General Eye ED: Negative for pale conjunctiva or scleral icterus Neck no lymphadenopathy, supple and no JVD General: Negative for tenderness Chest Wall inspection of chest normal and palpation of chest normal Chest: Negative for tenderness Resp normal respiratory effort and clear to auscultation bilaterally Effort and Inspection: Negative for respiratory distress or pain with movement Auscultation: Negative for rhonchi, wheezes or diminished lung sounds Cardio regular rate, regular rhythm, S1 normal heart sound, S2 normal heart sound and no murmurs Peripheral Pulses: pulses 2+ throughout GI normal to inspection, nondistended, normoactive bowel sounds, soft to palpation, non-tender, non-distended and no masses Back/Spine no CVA tenderness and no thoracic nor lumbar tenderness Extremity normal to inspection General Extremety ED: Negative for edema General Extremity: Negative for edema Neuro oriented x3, CN's II-XII intact bilaterally, no sensory deficits noted and gait normal Sensorium / Orientation: awake, alert, oriented to person, oriented to place and oriented to time Motor Exam: strength 5/5 throughout and strength abnormal Psych mental status grossly normal Skin no rashes or lesions noted and no wounds MDM MDM MDM Narrative Medical decision making narrative: Patient presents with abdominal pain and bloating as well as decreased urine output. Clinically looks well. IV line established. CBC with differential 3.0 with a blood 13.5 and platelet count 173. Chemistries unremarkable. LFTs normal. Lipase normal at 55. Urinalysis unremarkable. CT scan of the abdomen pelvis obtained with IV contrast showed changes in the spine and pelvis consistent with multiple myeloma. Patient has also has a left renal cyst which she is known about. Lab Data Attestation: I reviewed the patient's lab results. Labs: Laboratory Results - last 24 hr 01/31/25 01/31/25 16:53 17:25 WBC 3.9 L RBC 4.56 L Hgb 13.5 Hct 40.3 MCV 88.4 MCH 29.6 MCHC 33.5 RDW Std Deviation 45.8 H RDW Coeff of Hattie 14.1 Plt Count 173 MPV 10.4 Immature Gran % (Auto) 0.300 Neut % (Auto) 71.4 H Lymph % (Auto) 14.0 L [place] % (Auto) 10.7 H Eos % (Auto) 2.3 Baso % (Auto) 1.3 H Absolute Neuts (auto) 2.8 Absolute Lymphs (auto) 0.55 L Nucleated RBC % 0 Sodium 140 Potassium 4.0 Chloride 102 Carbon Dioxide 24.6 Anion Gap 13 BUN 17 Creatinine 0.94 Estim Creat Clear Calc 77.55 Est GFR (MDRD) Non-Af 89 BUN/Creatinine Ratio 17.6 Glucose 95 Lactic Acid 1.4 Calcium 9.4 Total Bilirubin 0.31 AST 22 ALT 21 Alkaline Phosphatase 64 Total Protein 6.2 Albumin 4.0 Globulin 2.2 Albumin/Globulin Ratio 1.9 Lipase 55 Urine Color Yellow Urine Clarity Clear Urine pH 7.0 Ur Specific [place] 1.010 Urine Protein 15 H Urine Glucose (UA) Normal Urine Ketones Negative Urine Occult Blood 10 H Urine Nitrite Negative Urine Bilirubin Negative Urine Urobilinogen Normal Ur Leukocyte Esterase Negative Urine RBC 0-5 SEEN Urine WBC 0 SEEN Ur Squamous Epith Cells 0 SEEN Urine Bacteria 0 SEEN Urine Mucus 0 SEEN Radiography Diagnostic Testing: Clinical Impression(s) from Imaging Studies Abdomen/Pelvis CT 01/31/25 17:40 IMPRESSION: 1. Multiple cystic/osteolytic changes are demonstrated. Can not exclude multiple myeloma and/or metastases. 2. Diverticulosis without signs of diverticulitis. 3. Left renal cyst. 4. Nonobstructing right nephrolithiasis. 5. Status post cholecystectomy. 6. Other nonacute findings detailed above. Reading Location: [facility] Discharge Plan Triage Chief Complaint: Abd Pain Other Complaint: Complaint ED Provider: Marleni Newman Dx/Rx/DC Orders Clinical Impression: Abdominal pain of unknown cause Instructions: ED Abdominal Pain Unkn Cause Male... Prescriptions: No Action acyclovir 400 mg tablet 400 mg PO Q12H amlodipine 10 mg tablet 10 mg PO DAILY gabapentin 100 mg capsule 100 mg PO TID magnesium oxide 400 mg magnesium tablet 250 mg PO .noon melatonin 3 mg capsule 6 mg PO HS metoprolol tartrate 50 mg tablet 50 mg PO BID omeprazole 20 mg tablet,delayed release (DR/EC) 20 mg PO DAILY Patient Comments: Do not take with Vitamin C or Vitamin D together. ascorbic acid (vitamin C) 1,000 mg tablet 1 g PO BID cholecalciferol (vitamin D3) 125 mcg (5,000 unit) capsule 125 mcg PO DAILY benzonatate 200 mg capsule 200 mg PO BID-TID PRN Eliquis 5 mg tablet 5 mg PO BID levothyroxine [Levo-T] 100 mcg tablet 100 mcg PO DAILY baclofen 5 mg tablet 5 mg PO BID calcium carbonate 600 mg calcium (1,500 mg) tablet 600 mg PO BID nitrofurantoin monohyd/m-cryst 100 mg capsule 100 mg PO Q12 Qty: 14 0RF (DME) Disability Placard See Rx Instructions .Route .MEDSUPPLY Qty: 1 0RF Rx Instructions: Lifetime lenalidomide [Revlimid] 15 mg capsule 15 mg .ROUTE .COMPLEX Qty: 21 6RF Rx Instructions: 15 mg; 3 weeks on then 1 week rest Primary Care Provider: Christian Milner Referrals: Christian Milner DO [Primary Care Provider] - 3-5 Days Print Language: Portuguese Disposition Disposition: Home, Self Care
[2025-01-31 16:57] VITALS: BMI 32.1
[2025-01-31 17:04] LABS: Absolute Lymphocyte Count 0.55 X10^3/uL (0.83-4.51); Absolute Neutrophil Count 2.8 X10^3/uL (2.0-7.7); Basophil# 0.05 X10^3/uL; Basophil% 1.3 % (0-1); Eosinophil# 0.09 X10^3/uL; Eosinophils% 2.3 % (0-5); Hematocrit 40.3 % (40-54); Hemoglobin 13.5 g/dL (13.0-16.5); Lymphocyte # 0.55 X10^3/ul (0.83-4.51); Mean Corp Hgb Conc 33.5 g/dL (32-36); Mean Corpuscular Hgb 29.6 pg (27.0-32.0); Mean Corpuscular Volume 88.4 fL (80-94); Mean Platelet Vol. 10.4 fl (6.2-12.0); Monocyte# 0.42 X10^3/uL; Monocyte% 10.7 % (0-10); NRBC Flagged by Analyzer 0 % (0-5); Neutrophil # 2.82 X10^3/uL (2.7-7.7); Neutrophil % 71.4 % (47-70); POSITIVE DIFFERENTIAL YES; Platelet Count 173 K/mm3 (150-450); RBC Distribution Width CV 14.1 % (11.6-14.6); RBC Distribution Width SD 45.8 fl (35.1-43.9); Red Blood Count 4.56 M/mm3 (4.6-6.2); White Blood Count 3.9 K/mm3 (4.4-11.0)
[2025-01-31 17:31] LABS: Lactic Acid 1.4 mmol/L (0.0-2.0)
[2025-01-31] MEDS: 0.9% Normal Saline (1000mL) 1,000 ML 125 ML IV (17:34)
[2025-01-31 17:37] LABS: ALB/GLOB Ratio 1.9 RATIO (0.9-2.4); AST(SGOT) 22 U/L (<=37); Alanine Aminotransfer ALT/SGPT 21 U/L (<=46); Alkaline Phosphatase 64 U/L (40-129); Anion Gap 13 (5-15); BUN 17 mg/dL (4-19); BUN/Creat Ratio 17.6 RATIO (10-20); Calcium,Total 9.4 mg/dL (7.6-11.0); Carbon Dioxide 24.6 mmol/L (21.0-32.0); Chloride 102 mmol/L (98-108); Creatinine, Serum 0.94 mg/dL (0.70-1.20); EST Glomerular Filtration Rate 89 (>60); Estimated Creatinine Clearance 77.55 ml/min (50-250); Globulin 2.2 g/dL (2.2-4.2); Glucose 95 mg/dL (70-99); Lipase 55 U/L (13-75); Protein, Total 6.2 g/dL (5.9-8.4); Sodium Level 140 mmol/L (133-145); Total Bilirubin 0.31 mg/dL (0.00-1.30)
[2025-01-31 17:39] LABS: Bacteria 0 SEEN /hpf (None Seen); Mucous, Urine 0 SEEN /hpf (<or=2+); Squamous Epithelial Cells - UA 0 SEEN /hpf (0-5); White Blood Cells 0 SEEN /hpf (0-5)
--- NOTE | 2025-01-31 17:40 | CT_ITS ---
PROCEDURE: CT ABDOMEN/PELVIS w IV CONT ONLY 01/31/2025 REASON FOR EXAM: ABDOMINAL PAIN, BLOATING TECHNIQUE: Abdomen and pelvis CT with intravenous contrast. Contiguous axial scans of 3.75 mm slice thicknesses. Sagittal and coronal reconstruction images were obtained. One or more dose reduction techniques were used (e.g., automated exposure control, adjustment of mA and/or kv according to patient size, use of iterative reconstruction technique). ORAL CONTRAST TYPE: None. AMOUNT: 0 mL CONTRAST: ISOVUE-300 VOLUME: 93 mL RADIATION DOSE SUMMARY: DLP: 960.77 MGycm COMPARISON: NO RELEVANT PRIOR. FINDINGS: Lung bases: Unremarkable. Liver: Normal in size and attenuation. No masses. No biliary ductal dilatation. Gallbladder: Surgically absent. Spleen: Normal in size. Pancreas: No masses. No ductal dilatation. Adrenals: No nodules or thickening. Kidneys: Large cystic mass, left inferior pole measuring 5.4 cm. Two small calcifications in the left inferior pole, proximally 0.3 cm. Bladder: Unremarkable. Reproductive Organs: Unremarkable prostate. Mild prostate gland calcification. Bowel: Diverticulosis without signs of diverticulitis. Appendix: Unremarkable. Lymph nodes: No lymphadenopathy. Vasculature: Mild atherosclerotic calcific disease of the aortoiliac arteries. Marked tortuosity of the iliac arteries. Peritoneum / Retroperitoneum: No free fluid. No pneumoperitoneum. No masses. Anterior abdominal wall: Small fat containing left inguinal hernia. Bones: Bilateral ischial cystic changes. Cystic changes are also noted in the bilateral hips. Cystic changes are scattered throughout multiple thoracic and lumbar vertebral bodies. CT/Abdomen/Pelvis W IV Cont ONLY IMPRESSION: 1. Multiple cystic/osteolytic changes are demonstrated. Can not exclude multi ple myeloma and/or metastases. 2. Diverticulosis without signs of diverticulitis. 3. Left renal cyst. 4. Nonobstructing right nephrolithiasis. 5. Status post cholecystectomy. 6. Other nonacute findings detailed above. Reading Location: [facility]
[2025-01-31 18:05] VITALS: BP 149/80; PULSE 75; RESP 15; O2SAT 97
[2025-01-31 18:06] LABS: Color, Urine Yellow (Yellow); Glucose, Dipstick Normal (Normal); Ketone-Dipstick Negative (Negative); Leukocyte Esterase-Dipstick Negative /ul (Negative); Nitrite-Dipstick Negative (Negative); Occult Blood-Urine 10 /ul (Negative); Protein-Dipstick 15 mg/dl (Negative); Urine Bilirubin Dipstick Negative (Negative); Urine Clarity Clear (Clear); Urine Urobilinogen Normal (Normal)
[2025-01-31 18:22] LABS: Red Blood Cells-Urine 0-5 SEEN /hpf (0-5)
[2025-01-31 19:15] VITALS: BP 145/80; PULSE 75; RESP 15; TEMP 36.3; O2SAT 98
== END 2025-01-31 19:21 | disposition home or self-care (01) ==
PROVIDERS: Emergency Provider Emergency Medicine; Visit Provider Emergency Medicine
DX: R10.9 Unspecified abdominal pain (principal); R14.0 Abdominal distension (gaseous); I10 Essential (primary) hypertension; Z79.899 Other long term (current) drug therapy; E03.9 Hypothyroidism, unspecified; Z79.890 Hormone replacement therapy; Z86.718 Personal history of other venous thrombosis and embolism; Z79.01 Long term (current) use of anticoagulants; Z90.49 Acquired absence of other specified parts of digestive tract
CPT/HCPCS: 74177; 80053; 81001; 83605; 83690; 85025; 87086; 87088; 99284; Q9967; A4216

== ENCOUNTER → 2025-02-20 | Outpatient (REF) | payer MEDICARE, OTHER, SELFPAY ==
[2025-02-20 09:20] LABS: T4 Total, Thyroxin 7.1 ug/dL (4.5-12.1)
== END ==
PROVIDERS: Referring Provider Family Medicine; Visit Provider Family Medicine
DX: E03.9 Hypothyroidism, unspecified (principal)
CPT/HCPCS: 36415; 84436; 84443

== ENCOUNTER → 2025-02-28 | Outpatient (REF) | payer MEDICARE, OTHER, SELFPAY ==
--- OUTSIDE RECORDS SUMMARY | 2025-02-28 04:09 | XMS RPT_ITS | CCD ---
Author Organization [facility] Care Team Providers Care Development Specialist Name Role Phone Sandra APERTURE MASK ETCHER, Salena Chanel Primary Care Provider SALENA FLORES Referring Unavailabl e SANDRA, SALENA CHANEL Primary Care Unavailabl e Sandra APERTURE MASK ETCHER, Salena Chanel Primary Care Provider Sandra APERTURE MASK ETCHER, Salena Chanel Primary Care Provider LLUVIA FISHER Attending Unavailable SALENA FLORES Attending Unavailabl e SANDRA, SALENA CHANEL Primary Care Unavailabl e SANDRA, SALENA CHANEL Attending Unavailabl e SANDRA, SALENA CHANEL Primary Care Unavailabl e SANDRA, SALENA CHANEL Attending Unavailabl e SANDRA, SALENA CHANEL Primary Care Unavailabl e SANDRA, SALENA CHANEL Attending Unavailabl e SANDRA, SALENA CHANEL Primary Care Unavailabl e SANDRA, SALENA CHANEL Attending Unavailabl e SANDRA, SALENA CHANEL Primary Care Unavailabl e ARMAND JOSÉ Attending Unavailable SANDRA, SALENA CHANEL Primary Care Unavailabl e SANDRA, SALENA CHANEL Referring Unavailabl e SANDRA, SALENA CHANEL Attending Unavailabl e SANDRA, SALENA CHANEL Primary Care Unavailabl e FLORES, SALENA CHANEL Primary Care Unavailabl e SHERRY AMBROSE Attending Unavailable SALENA FLORES Attending Unavailabl e SANDRA, SALENA CHANEL Primary Care Unavailabl e SANDRA, SALENA CHANEL Attending Unavailabl e SANDRA, SALENA CHANEL Primary Care Unavailabl e NATI FLOWERS~[id number] RODARTE Attend ing Unavailable SANDRA, SALENA CHANEL Primary Care Unavailabl e SANDRA, SALENA CHANEL Attending Unavailabl e SANDRA, SALNEA CHANEL Primary Care Unavailabl e SANDRA, SALENA CHANEL Primary Care Unavailabl BLADE Nuno Admitting Unavailable MARTA FLEMING K~[id number] Attending Unavailable ISH TAO JR Consulting Unavailable ISH TAO JR Consulting Unavailable MIRIAM MARTA Kumar Consulting Unavailable MARTA FLEMING MARTA José~[phone] Consulting Unavailable ISH TAO JR Referring Unavailable SALENA FLORES Primary Care Unavailabl e SERVANDO ARMAND Admitting Unavailable HEATHER SANDOVAL Attending Unavailable ISH TAO JR Consulting Unavailable ISH TAO JR Consulting Unavailable Renuka Addison MD Unavailable Randee LOPEZ, Taylor Unavailable Unavailable Gisel Wolf MD Unavailable Sandra PUBLICITY EXPERT-BLUE, Salena Silver Primary Care Provider FRANCI SANTIAGO Attending Unavailable SALENA FLORES Primary Care Unavailable CYN, RENUKA Referring Unavailable SALENA FLORES Primary Care Unavailabl e CHARLIE, EMANUEL Attending Unavailable CYN, RENUKA Referring Unavailable SALENA FLORES Primary Care Unavailabl e CYN, RENUKA Referring Unavailable SALENA FLORES Primary Care Unavailabl e CYN, RENUKA Referring Unavailable SALENA FLORES Primary Care Unavailabl e CHARLIE, EMANUEL Attending Unavailable CYN, RENUKA Referring Unavailable SALENA FLORES Primary Care Unavailabl e CHARLIE, EMANUEL Attending Unavailable CYN, RENUKA Referring Unavailable SALENA FLORES Primary Care Unavailabl e CYN, RENUKA Referring Unavailable SALENA FLORES Primary Care Unavailabl e CHARLIE, EMANUEL Attending Unavailable SALENA FLORES Primary Care Unavailabl e ISH UPTON JR, JR~[id number] Referr ing Unavailable DALE MORALES~[id number] Atte nding Unavailable SALENA FLORES Primary Care Unavailabl e FAHAD MCCOY Admitting Unavailable ISH TAO JR Consulting Unavailable ISH UPTON JR, JR~[id number] Consul yaritza Unavailable CYN, RENUKA Consulting Unavailable CYN, RENUKA Consulting Unavailable CYN, RENUKA Consulting Unavailable CHARLIE, EMANUEL Consulting Unavailable CHARLIE, EMANUEL Consulting Unavailable CHARLIE, EMANUEL Consulting Unavailable SALENA FLORES Primary Care Unavailabl e NIA GAINES Referring Unavailable CYN, RENUKA Referring Unavailable SANDRA, SALENA CHANEL Primary Care Unavailabl e FLORES, SALENA CHANEL Referring Unavailabl e FLORES, SALENA CHANEL Primary Care Unavailabl e FLORES, SALENA CHANEL Referring Unavailabl e FLORES, SALENA CHANEL Primary Care Unavailabl e CYN, RENUKA Referring Unavailable FLORES, SALENA CHANEL Primary Care Unavailabl e CYN, RENUKA Referring Unavailable FLORES, SALENA CHANEL Primary Care Unavailabl e MORGNA EFRAÍN, EFRAÍN~[id number] MORGAN Referring Unavailable FLORES, SALENA CHANEL Primary Care Unavailabl e EMANUEL GUERRA Attending Unavailable CYN, RENUKA Referring Unavailable FLORES, SALENA CHANEL Primary Care Unavailabl e Cyn DEE, Renuka Unavailable Randee RN, Taylor Unavailable Unavailable Angel DEE, Gisel Unavailable Sandra PUBLICITY EXPERT-LOCK TENDER, Salena Silver Primary Care Provider SUSANNAH Rashid Attending Provider Unavailable Dr. Jenn Perez Attending Provider SUSANNAH Rashid Attending Provider Unavailable Dr. Jenn Perez Attending Provider Dr. Jenn Perez Referring Provider Dr. Iraida Balderas Primary Care Provider Dr. Iraida Balderas Referring Provider Gayatri Hinds Attending Provider Unavailable Dr. Te Shah Attending Provider [phone] Te Shah Other Provider [phone] Chris [facility] Unavailable Dr. Jenn Perez Attending Provider Valentin APERTURE MASK ETCHER, TIP-C Zayda Attending Provider Dr. Iraida Balderas Primary Care Provider [phone] Iraida Balderas Referring Provider [phone] Te Shah Attending Provider Dr. Te Shah Other Provider Dr. Jenn Perez Attending Provider Valentin APERTURE MASK ETCHER, APERTURE MASK ETCHER-Herve Priest Attending Provider [phone] Dr. Iraida Balderas Primary Care Provider Dr. Iraida Balderas Referring Provider Dr. Te Shah Attending Provider [phone] Dr. Te Shah Other Provider Dr. Kofi Barboza Attending Provider Dr. Kofi Barboza Referring Provider Dr. Iraida Balderas Primary Care Provider Dr. Iraida Balderas Referring Provider Dr. Jenn Perez Attending Provider Dr. Te Shah Attending Provider [phone] Dr. Te Shah Other Provider Alf DO Blade E Unavailable Alf DO Blade E Primary Care Provider Milner DO, Blade Primary Care Provider [phone] MICKEY MUNOZ Attending Unavailable MILNER, BLADE Primary Care Unavailable ALEX BARRIENTOS Attending Unavailable MILNER, BLADE Primary Care Unavailable MILNER, BLADE Primary Care Unavailable ALEXANDERMICKEY Attending Unavailable MILNER, BLADE Primary Care Unavailable ALEXANDER, MICKEY Attending Unavailable MILNER, BLADE Primary Care Unavailable ALEXANDER, MICKEY Attending Unavailable MILNER, BLADE Primary Care Unavailable MICKEY MUNOZ Attending Unavailable LEANNA OSBORNE Attending Unavailable MILNER, BLADE Primary Care Unavailable MICKEY MUNOZ Attending Unavailable MILNER, BLADE Primary Care Unavailable ALEXANDER, MICKEY Attending Unavailable MILNER, BLADE Primary Care Unavailable MILNER, BLADE Primary Care Unavailable ALEXANDER, MICKEY Attending Unavailable MILNER, BLADE Primary Care Unavailable MICKEY MUNOZ Attending Unavailable MILNER, BLADE Primary Care Unavailable ALEXANDERMICKEY Chavez Attending Unavailable MILNER, BLADE Primary Care Unavailable MICKEY MUNOZ Attending Unavailable GISEL WOLF Attending Unavailable SALENA FLORES Referring Unavailable MILNER, BLADE E Primary Care Unavailable BLADE MILNER Primary Care Unavailable GISEL WOLF Attending Unavailable BLADE MILNER Referring Unavailable Unavailable Primary Care Provider UnavailRIC Iyer Referring Unavailable Dr. Blade Milnre DO Primary Care Provider [phone] Sesar DEE, Dr. Burt Yoo Admit Provider Sesar DEE, Dr. Burt Yoo Attending Provider Sesar DEE, Dr. Burt Yoo Referring Provider Anatoly DEE, Dr. Lott Other Provider Joselin DEE, Dr. Lott Other Provider Sesar DEE, Dr. Burt Yoo Other Provider Joselin DEE, Dr. Lott Attending Provider Dr. Blade Milner DO Referring Provider [phone] Valentin APERTURE MASK ETCHER-C, Zayda Attending Provider Dr. Jenn Perez MD Attending Provider Dr. Arturo Snyder MD Attending Provider Dr. Arturo Snyder MD Referring Provider Claudio DEE, Dr. Morris Emergency Provider Alf DEE, Dr. Gonzales Attending Provider Unavail able Joyce Reece Attending Provider Joceline DEE, Dr. Roland Attending Provider Dr. Jenn Perez MD Referring Provider Dr. Iraida Balderas MD Primary Care Provider Dr. Blade Milner DO Primary Care Provider [phone] Dr. Blade Milner DO Referring Provider [phone] Dr. Oren Olivera MD Attending Provider Valentin APERTURE MASK ETCHER-C, Zayda Attending Provider Dr. Blade Milner MD Referring Provider Unavail able Dr. Blade Milner DO Primary Care Provider [phone] Dr. Blade Milner DO Referring Provider [phone] Joselin DEE, Dr. Lott Attending Provider Dr. Jenn Perez MD Referring Provider Dr. Iraida Balderas MD Primary Care Provider Valentin APERTURE MASK ETCHER-C, Zayda Referring Provider Dr. Blade Milner DO Primary Care Provider [phone] Dr. Blade Milner DO Referring Provider [phone] Dr. Jenn Perez MD Attending Provider Dr. Marleni Newman DO Emergency Provider RIC SOUZA Attending Unavailabl e PCP, NO Referring Unavailable RIC SOUZA Attending Unavailabl e Paty SALEH, Dr. Yepez Attending Provider Dr. Jenn Perez MD Referring Provider Dr. Iraida Balderas MD Primary Care Provider [phone] Dr. Blade Milner DO Primary Care Provider [phone] Dr. Blade Milner DO Referring Provider [phone] Valentin APERTURE MASK ETCHER-C, Zayda Attending Provider Dr. Blade Milner MD Attending Provider Unavail able Blade Milner Primary Care Unavailable Blade Hooker Attending Unavailable Blade Hooker Referring Unavailable Blade Milner Primary Care Unavailable Blade Hooker Attending Unavailable Blade Milner Primary Care Unavailable Azra Arias Admitting Unavailable Siska, Oren Consulting Unavailable Arianne Crook Attending Unavailable Azra Arias Consulting Unavailable Oren Ledbetter Consulting Unavailable Armand Menchaca Consulting Unavailable Tay Mckeon Consulting Unavailable Renuka Werenr Consulting Unavailable Alberto Kim Consulting Unavailable Akua Rodríguez Consulting Unavailable Josef Cervantes Consulting Unavailable Blade Milner Primary Care Unavailable Joselin, Oren Consulting Unavailable Tay Mckeon Attending Unavailable Juana Azra L Admitting Unavailable Juana Azra L Consulting Unavailable Anatoly, Oren Consulting Unavailable Armand Menchaca Consulting Unavailable Tay Mckeon Consulting Unavailable Milner, Blade Primary Care Unavailable Milner, Blade Referring Unavailable Valentin APERTURE MASK ETCHER, Zayda Attending Unavailable Milner, Blade Referring Unavailable Milner, Blade Primary Care Unavailable Valentin APERTURE MASK ETCHER, Zayda Attending Unavailable Milner, Blade Referring Unavailable Jenn Perez Attending Unavailable Milner, Blade Primary Care Unavailable Milner, Blade Primary Care Unavailable Luan Car Attending Unavailable Milner, Blade Primary Care Unavailable Valentin APERTURE MASK ETCHER, Zayda Referring Unavailable Valentin APERTURE MASK ETCHER, Zayda Attending Unavailable Milner, Blade Primary Care Unavailable Oren Olivera Attending Unavailable Sesar, Burt Chi Referring Unavailable Oren Ledbetter Consulting Unavailable Sesar, Burt Chi Admitting Unavailable Oren Olivera Consulting Unavailable Sesar, Burt Chi Consulting Unavailable Milner, Blade Primary Care Unavailable Milner, Blade Referring Unavailable Joyce Hernandez Attending Unavailable Milner, Blade Primary Care Unavailable Milner, Blade Referring Unavailable Valentin APERTURE MASK ETCHER, Zayda Attending Unavailable Oren Olivera Attending Unavailable Renuka Werner Consulting Unavailable Alberto Kim Unavailable Akua Rodríguez Consulting Unavailable Oren Olivera Referring Unavailable Akua Rodríguez Attending Unavailable Jenn Perez Attending Unavailable Georgina Perezour Referring Unavailable Jolliff, Iraida S Primary Care Unavailable Josef Cervantes Consulting Unavailable Arianne Crook Consulting Unavailable Alberto Kim Attending Unavailable Milner, Blade Primary Care Unavailable Oren Ledbetter Consulting Unavailable Sesar, Burt Chi Referring Unavailable Sesar, Burt Chi Admitting Unavailable Sesar, Burt Chi Attending Unavailable Oren Olivera Consulting Unavailable Azra Arias Attending Unavailable Josef Cervantes Attending Unavailable Carmen WHELAN, Nelida Chavez Attending Unavailabl e Milner, Blade Primary Care Unavailable Oren Olivera Attending Unavailable Milner, Blade Referring Unavailable Milner, Blade Referring Unavailable Milner, Blade Primary Care Unavailable Valentin APERTURE MASK ETCHER, Zayda Attending Unavailable Milner, Blade Referring Unavailable Milner, Blade Primary Care Unavailable Jenn Perez Attending Unavailable Milner, Blade Referring Unavailable Milner, Blade Primary Care Unavailable Oren Olivera Attending Unavailable Milner, Blade Referring Unavailable Milner, Blade Primary Care Unavailable Valentin APERTURE MASK ETCHER, Zayda Attending Unavailable Jolliff, Iraida S Referring Unavailable Jolliff, Iraida S Primary Care Unavailable Valentin APERTURE MASK ETCHER, Zayda Attending Unavailable Jolliff, Iraida S Referring Unavailable Jolliff, Iraida S Primary Care Unavailable Valentin APERTURE MASK ETCHER, Zayda Attending Unavailable Jolliff, Iraida S Referring Unavailable Jolliff, Iraida S Primary Care Unavailable Isckarus, Jenn Attending Unavailable Jolliff, Iraida S Referring Unavailable Jolliff, Iraida S Primary Care Unavailable Valentin APERTURE MASK ETCHER, Zayda Attending Unavailable Blade Milner Primary Care Unavailable Arturo Snyder Attending Unavailable Claudio, Arturo Referring Unavailable Jolliff, Iraida S Referring Unavailable Jolliff, Iraida S Primary Care Unavailable Te Shah Attending Unavailable Blade Milner Primary Care Unavailable Isckarus, Jenn Attending Unavailable Isckarus, Jenn Referring Unavailable Jolliff, Iraida S Primary Care Unavailable Isckarus, Jenn Referring Unavailable Chris, Jenn Attending Unavailable Blade Milner Primary Care Unavailable Marleni Newman Attending Unavailable Carmen APERTURE MASK ETCHER, Nelida Chavez Attending UnavailRenuka Amaya Attending Unavailable Arianne Crook Attending Unavailable Blade Milner Primary Care Unavailable Blade Hooker Attending Unavailable Blade Milner Primary Care Unavailable Blade Hooker Referring Unavailable Blade Hooker Attending Unavailable Medications Current Medications Medication Drug Class(es) Dates Sig (Normalized) Sig (Original) acetaminophen 500 mg oral tablet (20 sources) Start: 02-01-2025 take 2 tablets by mouth every month Acetaminophen 500 mg tablet Active 1000 mg PO EVERY MONTH February 01, 2025 12:00am Start: 07-08-2023 End: 08-08-2024 take 1 capsule by mouth every six hours as needed for pain Acetaminophen 500 mg capsule Discontinued 500 mg PO EVERY 6 HOURS as needed for fever or pain July 08, 2023 12:00am August 08, 2024 8:39pm Start: 12-18-2022 End: 12-19-2022 take 1 tablet by mouth every six hours as needed 650 mg, oral, Every 6 hours PRN, mild pain, Starting on Wed12/18/22 at 0016 Start: 12-02-2022 End: 12-09-2022 take 1 tablet by mouth every six hours as needed 650 mg, oral, Every 6 hours PRN, mild pain, Starting on Wed12/02/22 at 0000 Start: 11-10-2022 End: 11-21-2022 take 1 tablet by mouth every six hours as needed 650 mg, oral, Every 6 hours PRN, mild pain, Starting on Wed11/10/22 at 1535 take 2 tablets by mo uth every six hours as needed acetaminophen (TYLENOL) 500 mg tablet Take 1,000 mg by mouth every 6 hours as needed. Active acyclovir 400 mg oral tablet (20 sources) Herpesvirus Nucleoside Analog DNA Polymerase Inhibitor, Herpes Simplex Virus Nucleoside Analog DNA Polymerase Inhibitor, Herpes Zoster Virus Nucleoside Analog DNA Polymerase Inhibitor Start: 07-08-2023 take 1 tablet by mouth every twelve hours Acyclovir 400 mg tablet Active 400 mg PO Q12H July 08, 2023 12:00am Start: 07-08-2023 take 400 mg by mouth twice amalia ly Acyclovir Active 400 MG PO TWICE A DAY July 08, 2023 12:00am amLODIPine 10 mg oral tablet (20 sources) Dihydropyridine Calcium Channel Mayco Start: 07-08-2023 take 1 tablet by mouth once daily Amlodipine 10 mg tablet Active 10 mg PO DAILY July 08, 2023 12:00am Start: 07-31-2021 End: 12-19-2022 take 1 tablet by mouth once daily Amlodipine 10 mg tablet Active 10 mg PO DAILY July 08, 2023 12:00am amoxicillin 500 mg oral capsule (13 sources) Penicillin-class Antibacterial Start: 02-01-2025 Amoxicillin 500 mg capsule Active 500 mg PO TWICE A DAY February 01, 2025 12:00am 6-12 month Tx access in 2-3 months Start: 08-17-2024 End: 11-02-2024 take 1 capsule by mouth twice daily Amoxicillin 500 mg capsule Discontinued 500 mg PO TWICE A DAY August 17, 2024 1:00am November 02, 2024 3:00pm apixaban 5 mg oral tablet (20 sources) Factor Xa Inhibitor Start: 07-17-2023 take 1 tablet by mouth twice daily Apixaban (Eliquis) 5 mg tablet Active 5 mg PO TWICE A DAY July 17, 2023 12:00am Eliquis 5 MG tab let Indications: Venous Thromboembolism Take by mouth every 12 hours. Active ascorbic acid 1000 mg oral tablet (20 sources) Vitamin C Start: 07-08-2023 take 1 g by mouth twice daily Ascorbic Acid (Vitamin C) 1,000 mg tablet Active 1 g PO TWICE A DAY July 08, 2023 12:00am Start: 07-08-2023 take 1 g by mouth twice daily Ascorbic Acid (Vitamin C) Active 1 GM PO TWICE A DAY July 08, 2023 12:00am Start: 07-08-2023 take 1 g by mouth twice daily Ascorbic Acid (Vitamin C) Active 1 GM PO TWICE A DAY July 07, 2023 11:00pm Start: 07-08-2023 take 1 g by mouth ev shanelle six hours Ascorbic Acid (Vitamin C) Active 1 GM PO EVERY 6 HOURS July 07, 2023 11:00pm Start: 07-08-2023 take 1 g by mouth ev shanelle six hours Ascorbic Acid (Vitamin C) Active 1 GM PO EVERY 6 HOURS July 08, 2023 12:00am baclofen 5 mg oral tablet (20 sources) gamma-Aminobutyric Acid-ergic Agonist Start: 08-12-2023 take 1 tablet by mouth twice daily Baclofen 5 mg tablet Active 5 mg PO TWICE A DAY August 12, 2023 1:00am Start: 07-08-2023 End: 07-17-2023 take 1 tablet by mouth once daily Baclofen 5 mg tablet Discontinued 5 mg PO DAILY July 08, 2023 12:00am July 17, 2023 4:08am benzonatate 200 mg oral capsule (20 sources) Non-narcotic Antitussive Start: 09-13-2024 Benzonatate 200 mg capsule Active 200 mg PO 2 to 3 times per day as needed September 13, 2024 1:00am Start: 08-12-2023 End: 08-08-2024 take 1 capsule by mouth three times daily as needed for cough Benzonatate 200 mg capsule Discontinued 200 mg PO THREE TIMES A DAY as needed for cough August 12, 2023 1:00am August 08, 2024 8:40pm take 1 capsule by [facility] three times daily as needed for cough benzonatate (Tessalon) 100 MG capsule Take 100 mg by mouth 3 times daily as needed for cough. Do not crush or chew. Active calcium carbonate 1500 mg oral tablet (20 sources) Start: 08-12-2023 take 1 tablet by mouth twice daily Calcium Carbonate 600 mg calcium (1,500 mg) tablet Active 600 mg PO TWICE A DAY August 12, 2023 1:00am take 600 mg by mouth in the morn ing Calcium Carbonate (CALCIUM 600 PO) Take 600 mg by mouth in the morning and 600 mg in the evening. Active cefdinir 300 mg oral capsule (5 sources) Cephalosporin Antibacterial Start: 10-30-2024 cefdinir (OMNICEF) 300 mg capsule 10/30/2024 Active cholecalciferol 0.125 mg oral capsule (20 sources) Vitamin D Start: 07-08-2023 take 1 capsule by mouth once daily Cholecalciferol (Vitamin D3) 125 mcg (5,000 unit) capsule Active 125 ug PO DAILY July 08, 2023 12:00am Start: 09-01-2022 End: 04-07-2023 Cholecalciferol 1.25 MG (500 00 UT) capsule Take by mouth. 10/09/2022 Active Start: 03-15-2022 take 1 capsule by mo uth every week at mealtime cholecalciferol (VITAMIN D-3) 1,250 mcg (50,000 unit) capsule Indications: Vitamin D deficiency, unspecified TAKE 1 CAPSULE BY MOUTH ONCE A WEEK WITH A MEAL 13 capsule 1 03/15/2022 Active take 1 capsule by mo uth once daily cholecalciferol (Vitamin D-3) 125 MCG (5000 UT) capsule Take 5,000 Units by mouth daily. Active End: 07-31-2021 take 1 [IU] by mouth every week at mealtime cholecalciferol (VITAMIN D-3) 1,250 mcg (50,000 unit) capsule cholecalciferol (vitamin D3) 50,000 unit capsule Take 1 unit every week by oral route with meals for 90 days. 0 07/31/2021 Discontinued End: 07-31-2021 take 1 capsule by mouth every week at mealtime cholecalciferol (VITAMIN D-3) 1,250 mcg (50,000 unit) capsule cholecalciferol (vitamin D3) 1,250 mcg (50,000 unit) capsule Take 1 unit every week by oral route with meals for 90 days. 0 07/31/2021 Discontinued End: 07-31-2021 take 1 capsule by mouth once daily at mealtime cholecalciferol (VITAMIN D-3) 5,000 Units tablet Vitamin D3 125 mcg (5,000 unit) tablet Take 1 capsule p.o. daily with the largest meal of the day 0 07/31/2021 Discontinued dexamethasone 4 mg oral tablet (20 sources) Corticosteroid Start: 02-01-2025 take 5 tablets by mouth every month Dexamethasone 4 mg tablet Active 20 mg PO EVERY MONTH February 01, 2025 12:00am Start: 08-04-2023 End: 08-08-2024 take 1 tablet by mouth once daily Dexamethasone 4 mg tablet Discontinued 20 mg PO Q28D June 19, 2024 12:00am August 08, 2024 8:40pm 20 mg orally Days 1 and 2 of each treatment cycle; cycles are repeated at 4 weeks intervals. Start: 08-04-2023 Dexamethasone Active 20 MG PO .COMPLEX 30 August 04, 2023 1:00am 20 mg orally Days 1 and 2 of each treatment cycle; cycles are repeated at 4 weeks intervals. Start: 2023 End: 07-17-2023 Dexamethasone 4 mg tablet Discontinued 20 mg PO DAILY 60 2023 12:00am July 17, 2023 4:03am On days 1 and 2 only of each cycle (4 weeks cycles) Start: 07-08-2023 End: 08-05-2023 take 10 mg by mouth every week Dexamethasone 4 mg tabl et Discontinued 10 mg PO EVERY WEEK July 08, 2023 12:00am August 05, 2023 5:06pm Take prior to coming to office for treatment Start: 07-08-2023 End: 07-17-2023 Dexamethasone Discontinued 2 0 MG PO DAILY 60 2023 12:00am July 17, 2023 4:03am On days 1 and 2 only of each cycle (4 weeks cycles) Start: 07-08-2023 End: 08-05-2023 take 10 mg by mouth every week Dexamethasone Discontin ued 10 MG PO EVERY WEEK July 08, 2023 12:00am August 05, 2023 5:06pm Take prior to coming to office for treatment Start: 11-17-2022 End: 12-01-2022 take 2 tablets by mouth four times daily dexAMETHasone (DECADRON) 2 mg tablet Take 2 tablets (4 mg total) by mouth 4 (four) times a day for 14 days. 112 each 0 11/17/2022 11/21/2022 Discontinued (Stop Taking at Discharge) Start: 11-11-2022 End: 11-17-2022 dexamethasone (DECADRON) inj ection 4 mg Start: 11-10-2022 End: 11-10-2022 dexamethasone (DECADRON) inj ection 20 mg dexAMETHasone (D ECADRON) 4 mg tablet Take 4 mg by mouth every 4 weeks. Active diphenhydrAMINE hydrochloride 25 mg oral tablet (20 sources) Histamine-1 Receptor Antagonist Start: 02-01-2025 take 1 tablet by mouth every month Diphenhydramine Hcl (Allergy (Diphenhydramine)) 25 mg tablet Active 25 mg PO EVERY MONTH February 01, 2025 12:00am Start: 07-08-2023 End: 08-08-2024 take 1 capsule by mouth once as needed Diphenhydramine Hcl (Benadryl) 25 mg capsule Discontinued 25 mg PO ONCE as needed for itching July 08, 2023 12:00am August 08, 2024 8:40pm 1 hour before Darzalex injection Start: 07-08-2023 take 2 capsules by mouth once Diphenhydramine Hcl (Benadryl) 25 mg capsule Active 50 MG PO ONCE July 08, 2023 12:00am 1 hour before Darzalex injection diphenhydrAMINE HCl (BENADRYL ALLERGY PO) Take by mouth. Active Disability Placard (19 sources) Start: 2023 Disability [place] card Active 0 .Route .MEDSUPPLY July 11, 2023 11:00pm Lifetime Start: 2023 Disability [place] card Active 0 .Route .MEDSUPPLY 2023 12:00am Lifetime doxycycline hyclate 100 mg oral tablet (20 sources) Tetracycline-class Drug Start: 10-30-2024 take 1 capsule by mouth twice daily Doxycycline Hyclate 100 mg capsule Active 100 mg PO TWICE A DAY February 01, 2025 12:00am Start: 08-17-2024 End: 11-02-2024 take 1 capsule by mouth twice daily Doxycycline Hyclate 100 mg capsule Discontinued 100 mg PO TWICE A DAY August 17, 2024 1:00am November 02, 2024 3:01pm Start: 01-04-2024 End: 01-19-2024 take 1 capsule by mouth twice daily Doxycycline Monohydrate 100 mg capsule Discontinued 100 mg PO TWICE A DAY 60 30 January 04, 2024 12:00am February 02, 2024 12:00am January 19, 2024 1:40pm Start: 08-30-2023 End: 09-13-2023 take 1 capsule by mouth twice daily Doxycycline Monohydrate 100 mg capsule Discontinued 100 mg PO TWICE A DAY August 30, 2023 1:00am September 12, 2023 1:00am September 13, 2023 1:04am gabapentin 100 mg oral capsule (20 sources) Anti-epileptic Agent Start: 07-08-2023 take 1 capsule by mouth three times daily Gabapentin 100 mg capsule Active 100 mg PO THREE TIMES A DAY July 08, 2023 12:00am guaiFENesin 20 mg/ml oral solution (20 sources) take 200 mg by mouth every six hours guaiFENesin (Robitussin) 100 MG/5ML syrup Take 200 mg by mouth in the morning and 200 mg at noon and 200 mg in the evening and 200 mg before bedtime. Active lenalidomide (20 sources) Thalidomide Analog Start: 04-04-2024 Lenalidomide (Revlimid) 15 mg capsule Active 15 mg .ROUTE .COMPLEX April 04, 2024 10:50am 15 mg; 3 weeks on then 1 week rest Start: 04-09-2023 End: 08-23-2023 Lenalidomide (Revlimid) 15 m g capsule Discontinued 15 mg PO .Q21 DAYS August 12, 2023 1:00am August 23, 2023 10:37am swallow whole with glass of water; do not open, crush, chew , break, or dissolve Start: 04-09-2023 End: 04-04-2024 take 1 capsule by mouth once daily Lenalidomide (Revlimid) 15 mg capsule Discontinued 0 .ROUTE .COMPLEX February 07, 2024 9:38am April 04, 2024 10:51am TAKE 1 CAPSULE BY MOUTH DAILY FOR 21 DAYS levothyroxine sodium 0.112 mg oral tablet (20 sources) l-Thyroxine Start: 02-01-2025 take 1 tablet by mouth once daily Levothyroxine 112 mcg tablet Active 112 ug PO DAILY February 01, 2025 12:00am Start: 08-12-2023 End: 02-01-2025 Levothyroxine (Levo-T) 100 m cg tablet Discontinued 100 ug PO DAILY August 12, 2023 1:00am February 01, 2025 1:51pm Start: 07-08-2023 End: 07-17-2023 take 1 capsule by mouth once daily Levothyroxine 88 mcg capsule Discontinued 88 ug PO DAILY July 08, 2023 12:00am July 17, 2023 4:08am Start: 09-09-2022 End: 12-19-2022 levothyroxine (SYNTHROID) 88 mcg tablet Take 88 mcg by mouth. 09/09/2022 Active Start: 09-16-2021 End: 09-09-2023 take 1 tablet by mouth once daily Levothyroxine 88 MCG tablet Take 1 tablet by mouth daily. 30 tablet 11 09/09/2022 09/09/2023 Active Start: 08-04-2021 End: 08-04-2022 take 1 tablet by mouth once daily before breakfast levothyroxine (SYNTHROID, LEVOTHROID) 75 mcg tablet Take 1 tablet (75 mcg total) by mouth 1 (one) time each day before breakfast. 90 each 3 08/04/2021 09/16/2021 Discontinued Magnesium (20 sources) magnesium 250 MG tablet Take by mouth daily. Active magnesium hydroxide 240 mg/ml oral suspension (20 sources) Start: 02-01-2025 take 1 mL by mouth once daily as needed Magnesium Hydroxide (Milk Of Magnesia Concentrated) 2,400 mg/10 mL suspension Active 30 mL PO daily as needed February 01, 2025 12:00am Start: 08-12-2023 End: 08-08-2024 take 1 mL by mouth once daily as needed for constipation Magnesium Hydroxide (Milk Of Magnesia) 400 mg/5 mL suspension Discontinued 30 mL PO DAILY as needed for constipation August 12, 2023 1:00am August 08, 2024 8:41pm Start: 08-12-2023 take 1 mL by mouth once daily Magnesium Hydroxide (Milk Of Magnesia) 400 mg/5 mL suspension Active 30 ML PO DAILY August 12, 2023 1:00am Start: 08-12-2023 take 1 mL by mouth once daily Magnesium Hydroxide (Milk Of Magnesia) 400 mg/5 mL suspension Active 30 ML PO DAILY August 12, 2023 12:00am magnesium hydrox stephon (MOM) 400 mg/5 mL suspension Take 30 mL by mouth. Active take 30 mL by mouth once daily m agnesium hydroxide (Milk of Magnesia) 400 MG/5ML suspension Take 30 mL by mouth Nightly. Active magnesium oxide 400 mg oral tablet (19 sources) Start: 07-08-2023 Magnesium Oxid e 400 mg magnesium tablet Active 250 mg PO .noon July 08, 2023 12:00am Start: 07-08-2023 take 250 mg by mouth at bedtim e Magnesium Oxide Active 250 MG PO AT BEDTIME July 08, 2023 12:00am Start: 07-08-2023 take 800 mg by mouth at bedtim e Magnesium Oxide Active 800 MG PO AT BEDTIME July 07, 2023 11:00pm melatonin 3 mg oral capsule (20 sources) Start: 07-08-2023 take 2 capsules by mouth at bedtime Melatonin 3 mg capsule Active 6 mg PO BEDTIME July 08, 2023 12:00am Start: 07-08-2023 take 6 mg by mouth at bedtime Melatonin Active 6 MG PO BEDTIME July 08, 2023 12:00am Start: 07-08-2023 take 3 mg by mouth at bedtime Melatonin Active 3 MG PO BEDTIME July 08, 2023 12:00am Start: 12-18-2022 End: 12-19-2022 take 6 mg by mouth once daily 6 mg, oral, Nightly, [facility] dose on Wed12/18/22 at 0045, For 4 days Start: 12-02-2022 End: 12-09-2022 take 6 mg by mouth once daily 6 mg, oral, Nightly, [facility] dose on Wed12/02/22 at 0002, For 20 days Start: 11-21-2022 End: 11-21-2022 melatonin tablet 6 mg Start: 11-21-2022 End: 12-21-2022 take 2 tablets by mouth at bedtime melatonin 3 mg tablet Take 2 tablets (6 mg total) by mouth at bedtime. 0 11/21/2022 12/21/2022 Active MELATONIN PO Darren e by mouth. Active melatonin 3 mg t ablet Take 1 tablet (3 mg total) by mouth. 0 Active metoprolol tartrate 50 mg oral tablet (20 sources) beta-Adrenergic Mayco Start: 07-08-2023 take 1 tablet by mouth twice daily Metoprolol Tartrate 50 mg tablet Active 50 mg PO TWICE A DAY July 08, 2023 12:00am Start: 11-05-2022 End: 05-04-2023 take 1 tablet by mouth twice daily Metoprolol Tartrate 50 mg tablet Active 50 mg PO TWICE A DAY July 08, 2023 12:00am Start: 07-31-2021 End: 07-31-2022 take 1 tablet by mouth twice daily metoprolol tartrate (LOPRESSOR) 100 mg tablet Indications: Essential hypertension TAKE 1 TABLET BY MOUTH TWICE A DAY 180 tablet 3 07/20/2022 Active Nutritional Supplements (ARIEL PO) (20 sources) Nutritional Supplements (ARIEL PO) Take by mouth. Active omeprazole 20 mg delayed release oral tablet (20 sources) Proton Pump Inhibitor Start: 07-08-2023 take 1 tablet by mouth once daily Omeprazole 20 mg tablet,delayed release (DR/EC) Active 20 mg PO DAILY July 08, 2023 12:00am Start: 01-29-2022 End: 08-15-2022 take 1 capsule by mouth once daily omeprazole [address] capsule TAKE 1 CAPSULE BY MOUTH 1 TIME EACH DAY. DO NOT CRUSH OR CHEW. 08/11/2022 Active polyethylene glycol 3350 15140 mg powder for oral solution (20 sources) Osmotic Laxative Start: 02-01-2025 take 17 g by mouth once daily Polyethylene Glycol 3350 17 gram powder in packet Active 17 g PO daily February 01, 2025 12:00am Start: 08-12-2023 End: 08-08-2024 Polyethylene Glycol 3350 (Cl earlax) 17 gram/dose powder Discontinued 17 g PO DAILY August 12, 2023 1:00am August 08, 2024 8:41pm Start: 11-05-2022 End: 12-25-2022 Polyethylene Glycol 3350 (Cl earlax) 17 gram/dose powder Active 17 GM PO DAILY August 12, 2023 1:00am Start: 11-05-2022 End: 12-19-2022 17 g, oral, Daily, First dos e on Wed12/18/22 at 0900 Dissolve in 240 mLs (8 ounces) of water or sports drink prior to giving. predniSONE 10 mg oral tablet (3 sources) Start: 04-29-2022 End: 05-10-2022 take 3 tablets by mouth once daily, then take 2 tablets by mouth once daily, then take 1 tablet by mouth once daily, then take 0.5 tablet by mouth once daily predniSONE (DELTASONE) 10 mg tablet Take 3 tablets (30 mg total) by mouth 1 (one) time each day for 3 days, THEN 2 tablets (20 mg total) 1 (one) time each day for 3 days, THEN 1 tablet (10 mg total) 1 (one) time each day for 3 days, THEN 0.5 tablets (5 mg total) 1 (one) time each day for 2 days. 19 each 0 04/29/2022 05/10/2022 Active sennosides, correction 8.6 mg oral tablet (20 sources) Start: 11-15-2022 End: 01-17-2023 take 1 tablet by mouth twice daily senna (SENOKOT) 8.6 mg tablet Take 1 tablet (8.6 mg total) by mouth 2 (two) times a day. 60 each 0 12/18/2022 01/17/2023 Active Start: 11-10-2022 End: 11-21-2022 take 1 tablet by mouth once daily for constipation 17.2 mg (2 tablet), oral, Nightly, First dose on Wed11/11/22 at 2100, Recovery & On Unit Bowel Regimen - for prevention of constipation take 1 tablet by mouth once marlon y senna (SENOKOT) 8.6 mg tablet Take 1 tablet (8.6 mg total) by mouth 1 (one) time each day. 0 Active simethicone 180 mg oral capsule (20 sources) Start: 02-01-2025 take 1 capsule by mouth three times daily as needed Simethicone 180 mg capsule Active 180 mg PO THREE TIMES A DAY as needed February 01, 2025 12:00am Start: 07-08-2023 End: 08-08-2024 take 1 tablet by mouth three times daily as needed Simethicone (Gas Relief (Simethicone)) 80 mg tablet,chewable Discontinued 80 mg PO THREE TIMES A DAY as needed for abdominal distention July 08, 2023 12:00am August 08, 2024 8:41pm Start: 12-08-2022 End: 12-09-2022 simethicone (MYLICON) chewab le tablet 160 mg Completed/Discontinued Medications Medication Drug Class(es) Dates Sig (Normalized) Sig (Original) aluminum hydroxide 40 mg/ml / magnesium hydroxide 40 mg/ml / simethicone 4 mg/ml oral suspension (1 source) Start: 11-19-2022 End: 11-21-2022 aluminum-magnesium hydroxide-simethico ne (MAALOX) 200-200-20 mg/5 mL suspension 15 mL Amino Ac-Protein Hydr-Whey Pro (Prosource) 10-100 gram-kcal/30 mL liquid (19 sources) Start: 07-08-2023 End: 07-17-2023 take 1 mL by mouth once daily Amino Ac-Protein Hydr-Whey Pro (Prosource) 10-100 gram-kcal/30 mL liquid Discontinued mL PO .QD July 08, 2023 12:00am July 17, 2023 4:09am Start: 07-08-2023 End: 07-17-2023 take 1 mL by mouth once daily Amino Ac-Protein Hydr-Wh ey Pro (Prosource) 10-100 gram-kcal/30 mL liquid Discontinued ML PO .QD July 07, 2023 11:00pm July 17, 2023 3:09am Start: 07-08-2023 End: 07-17-2023 take 1 mL by mouth once daily Amino Ac-Protein Hydr-Wh ey Pro (Prosource) 10-100 gram-kcal/30 mL liquid Discontinued ML PO .QD July 08, 2023 12:00am July 17, 2023 4:09am Start: 07-08-2023 take 1 mL by mouth once daily Amino Ac-Protein Hydr-Whey Pro (Prosource) 10-100 gram-kcal/30 mL liquid Active ML PO .QD July 08, 2023 12:00am amoxicillin 875 mg / clavulanate 125 mg oral tablet (7 sources) Penicillin-class Antibacterial Start: 01-04-2024 End: 01-19-2024 Amoxicillin-Pot Clavulanate 875-125 mg tablet Discontinued 1 {tbl} PO TWICE A DAY January 04, 2024 12:00am January 19, 2024 1:39pm Start: 01-04-2024 End: 01-19-2024 take 1 tablet by mouth twice daily Amoxicillin-Pot Clavulanate Discontinued 1 TABLET PO TWICE A DAY January 04, 2024 12:00am January 19, 2024 1:39pm Pjuvekpl-Fazqqndeu-Ybofbtv Hmb (Ariel) 7-7-1.5 gram powder in packet (6 sources) Start: 06-18-2024 End: 08-08-2024 Liuegqlr-Zpznwxvsr-Jqorbwp Hmb (Ariel) 7-7-1.5 gram powder in packet Discontinued 1 NMA PO DAILY June 18, 2024 12:00am August 08, 2024 8:40pm atorvastatin 10 mg oral tablet (20 sources) HMG-CoA Reductase Inhibitor Start: 07-31-2021 End: 08-12-2023 take 1 tablet by mouth once daily Atorvastatin 10 mg tablet Discontinued 10 mg PO DAILY July 08, 2023 12:00am August 12, 2023 10:30am bisacodyl 10 mg rectal suppository (20 sources) Stimulant Laxative Start: 06-18-2024 End: 08-08-2024 Bisacodyl (Dulcolax (Bisacodyl)) 10 mg suppository Discontinued 10 mg RC DAILY NEEDED as needed for constipation June 18, 2024 12:00am August 08, 2024 8:40pm bisacodyl (Dulco lax) 10 MG suppository Insert into the rectum Daily as needed for constipation. Active camphor 40 mg/ml / menthol 100 mg/ml / methyl salicylate 300 mg/ml topical cream (19 sources) Start: 07-08-2023 End: 07-17-2023 Camphor-Methyl Salicyl-Menth ol (Bengay Ultra Strength) 4-30-10 % cream Discontinued 1 NMA TOPICAL DAILY as needed July 08, 2023 12:00am July 17, 2023 4:08am Start: 07-08-2023 End: 07-17-2023 Camphor-Methyl Salicyl-Menth ol (Bengay Ultra Strength) 4-30-10 % cream Discontinued 1 APPLIC TOPICAL DAILY July 08, 2023 12:00am July 17, 2023 4:08am ceFAZolin (ANCEF) 1 gram/10 mL IV syringe 1 g (1 source) Start: 12-02-2022 End: 12-08-2022 1 g, intravenous, Administer over 3 Minutes, Every 8 hours, First dose on Wed12/02/22 at 0030, For 7 days Indication: Skin/Soft Tissue ceFAZolin (ANCEF) 2 gram/20 mL IV syringe 2 g (2 sources) Start: 11-12-2022 End: 11-12-2022 2 g, intravenous, Administer over 3 Minutes, Every 8 hours, First dose on Wed11/12/22 at 0000, For 3 doses, Recovery [facility] On Unit Indication: Prophylaxis-Surgical Start: 11-11-2022 End: 11-11-2022 ceFAZolin (ANCEF) 2 gram/20 mL IV syringe 2 g docusate sodium 50 mg / sennosides, correction 8.6 mg oral tablet (20 sources) Start: 12-09-2022 End: 12-09-2022 senna-docusate (PERICOLACE) 8.6-50 mg per tablet 1 tablet Start: 12-02-2022 End: 08-08-2024 Sennosides-Docusate Sodium ( Senna Plus) 8.6-50 mg tablet Discontinued 1 NMA PO TWICE A DAY July 08, 2023 12:00am August 08, 2024 8:41pm 0.4 ml enoxaparin sodium 100 mg/ml prefilled syringe (9 sources) Low Molecular Weight Heparin Start: 12-18-2022 End: 12-19-2022 inject 40 mg by subcutaneous injection every twenty-four hours 40 mg, subcutaneous, Every 24 hours scheduled, First dose on Wed12/18/22 at 0900 Indication: VTE/PE Prophylaxis Start: 12-08-2022 End: 12-22-2022 inject 0.4 mL by subcutaneous injection once daily enoxaparin (LOVENOX) 40 mg/0.4 mL syringe Inject 0.4 mL (40 mg total) under the skin 1 (one) time each day for 14 days. 0 12/08/2022 12/22/2022 Active Start: 12-05-2022 End: 12-09-2022 enoxaparin (LOVENOX) injecti on 40 mg 1 ml fentaNYL 0.05 mg/ml injection (1 source) Opioid Agonist Start: 01-29-2023 End: 01-30-2023 fentaNYL (SUBLIMAZE) injection ferrous sulfate 325 mg oral tablet (20 sources) Start: 2023 End: 01-04-2025 take 1 tablet by mouth once daily Ferrous Sulfate 325 mg (65 mg iron) tablet Discontinued 325 mg PO DAILY 2023 12:00am January 04, 2025 1:54pm gadoterate meglumine (DOTAREM) injection 15 mL (2 sources) Start: 12-02-2022 End: 12-02-2022 gadoterate meglumine (DOTAREM) injection 15 mL Start: 11-10-2022 End: 11-10-2022 gadoterate meglumine (DOTARE M) injection 15 mL 0.5 ml HYDROmorphone hydrochloride 1 mg/ml prefilled syringe (3 sources) Opioid Agonist Start: 12-02-2022 End: 12-09-2022 0.5 mg, intravenous, Every 3 hours PRN, severe pain, Starting on Wed12/02/22 at 0000 Start: 11-11-2022 End: 11-11-2022 HYDROmorphone (DILAUDID) 0.5 mg/0.5 mL injection - ADS Override Pull Start: 11-11-2022 End: 11-11-2022 HYDROmorphone (DILAUDID) inj ection 0.25 mg ibuprofen 400 mg oral tablet (20 sources) Nonsteroidal Anti-inflammatory Drug Start: 07-08-2023 End: 06-18-2024 take 1 tablet by mouth every eight hours as needed for pain Ibuprofen 400 mg tablet Discontinued 400 mg PO Q8H as needed for pain July 08, 2023 12:00am June 18, 2024 9:59pm Start: 10-09-2022 End: 12-08-2022 take 1 tablet by mouth every six hours for pain ibuprofen (ADVIL,MOTRIN) 600 mg tablet Indications: Left shoulder pain, unspecified chronicity , Upper back pain Take 1 tablet (600 mg total) by mouth every 6 (six) hours if needed for mild pain (pain). 60 tablet 0 10/09/2022 11/21/2022 Discontinued (Stop Taking at Discharge) iopamidoL (ISOVUE-300) 300 m g iodine /mL (61 %) solution 100 mL (2 sources) Start: 12-01-2022 End: 12-01-2022 iopamidoL (ISOVUE-300) 300 m g iodine /mL (61 %) solution 100 mL Start: 11-10-2022 End: 11-10-2022 iopamidoL (ISOVUE-300) 300 m g iodine /mL (61 %) solution 100 mL lidocaine hydrochloride 0.02 mg/mg topical gel (4 sources) Antiarrhythmic, Amide Local Anesthetic Start: 11-28-2024 End: 11-28-2024 lidocaine urojet 2 % 6 mL topical gel (GLYDO) Start: 11-28-2024 End: 11-28-2024 6 mL, URETHRAL, ONCE, 1 dose , On Wed11/28/24 at 1500, Prior to UDS Procedure Start: 01-29-2023 End: 01-29-2023 lidocaine (XYLOCAINE) 1 % in jection Start: 12-02-2022 End: 12-02-2022 lidocaine (XYLOCAINE) 2 % in jection 5 ml midazolam 1 mg/ml injection (1 source) Benzodiazepine Start: 01-29-2023 End: 01-30-2023 midazolam (VERSED) injection montelukast 10 mg oral tablet (19 sources) Leukotriene Receptor Antagonist Start: 07-08-2023 End: 07-17-2023 take 1 tablet by mouth once Montelukast (Singulair) 10 mg tablet Discontinued 10 mg PO AT BEDTIME July 08, 2023 12:00am July 17, 2023 4:08am Start 2 days before and the last day of Tx for the first cycle nitrofurantoin, macrocrystals 25 mg / nitrofurantoin, monohydrate 75 mg oral capsule (6 sources) Nitrofuran Antibacterial Start: 10-02-2024 End: 02-01-2025 take 1 capsule by mouth every twelve hours Nitrofurantoin Monohyd/M-Cryst 100 mg capsule Discontinued 100 mg PO EVERY 12 HOURS October 02, 2024 1:00am February 01, 2025 1:52pm ondansetron ODT (ZOFRAN-ODT) disintegrating tablet 4 mg (2 sources) Start: 12-02-2022 End: 12-09-2022 ondansetron ODT (ZOFRAN-ODT) disintegrating tablet 4 mg Start: 11-10-2022 End: 11-21-2022 ondansetron ODT (ZOFRAN-ODT) disintegrating tablet 4 mg oxyCODONE hydrochloride 5 mg oral tablet (20 sources) Opioid Agonist Start: 07-08-2023 End: 01-19-2024 take 1 tablet by mouth every six hours as needed for pain Oxycodone 5 mg tablet Discontinued 5 mg PO EVERY 6 HOURS as needed for pain July 08, 2023 12:00am January 19, 2024 1:41pm Start: 12-18-2022 End: 12-19-2022 take 1 tablet by mouth every six hours as needed 5 mg, oral, Every 6 hours PRN, moderate pain, Starting on Wed12/18/22 at 0016 Start: 12-07-2022 End: 12-18-2022 take 1 capsule by mouth every six hours as needed oxycodone 5 MG capsule Take 1 capsule by mouth Every 6 hours as needed. 12/18/2022 Active Start: 12-02-2022 End: 12-09-2022 take 5 mg by mouth every four hours as needed for pain 5 mg, oral, Every 4 hours PRN, moderate pain, severe pain, Starting on Wed12/02/22 at 0000 Start: 11-11-2022 End: 11-21-2022 take 5 mg by mouth every four hours as needed for pain 5 mg, oral, Every 4 hours PRN, Breakthrough pain, Starting on Wed11/11/22 at 1801, Recovery & On Unit May consider scheduled oxyCODONE instead of PRN pantoprazole 40 mg delayed release oral tablet (3 sources) Proton Pump Inhibitor Start: 12-18-2022 End: 12-19-2022 take 40 mg by mouth once daily before breakfast 40 mg, oral, Every morning before breakfast, First dose on Wed12/18/22 at 0700 Do not crush, chew, or split. Start: 12-02-2022 End: 12-09-2022 take 40 mg by mouth once daily before breakfast 40 mg, oral, Every morning before breakfast, First dose on Wed12/02/22 at 0700 Do not crush, chew, or split. Start: 11-11-2022 End: 11-21-2022 take 40 mg by mouth once daily before breakfast 40 mg, oral, Every morning before breakfast, First dose on Wed11/11/22 at 0700 Do not crush, chew, or split. Prochlorperazine (1 source) Phenothiazine Start: 12-02-2022 End: 12-09-2022 take 1 tablet by mouth every six hours as needed prochlorperazine (COMPAZINE) tablet 10 mg Promethazine (1 source) Phenothiazine Start: 11-11-2022 End: 11-21-2022 take 1 tablet by mouth every six hours as needed promethazine (PHENERGAN) tablet 25 mg Sodium Chloride (10 sources) Start: 12-18-2022 End: 12-19-2022 sodium chloride 0.9 % flush 10 mL Start: 12-02-2022 End: 12-09-2022 sodium chloride 0.9 % flush 10 mL Start: 12-01-2022 End: 12-01-2022 sodium chloride 0.9 % flush 10 mL Start: 11-10-2022 End: 11-21-2022 sodium chloride 0.9 % flush 10 mL Start: 11-10-2022 End: 11-10-2022 sodium chloride 0.9 % infusi on - ADS Override Pull Start: 11-10-2022 End: 11-10-2022 sodium chloride 0.9 % bolus 500 mL Start: 11-10-2022 End: 11-21-2022 sodium chloride 0.9 % infusi on Start: 11-10-2022 End: 11-21-2022 sodium chloride 0.9 % flush 10 mL Start: 11-10-2022 End: 11-10-2022 sodium chloride 0.9 % flush 20 mL sulfamethoxazole 800 mg / trimethoprim 160 mg oral tablet (20 sources) Dihydrofolate Reductase Inhibitor Antibacterial, Sulfonamide Antimicrobial Start: 06-18-2024 End: 07-10-2024 Sulfamethoxazole-Trimethopri m 800-160 mg tablet Discontinued 1 {tbl} PO Q12H June 18, 2024 12:00am July 10, 2024 3:03pm x 10 days Start: 07-08-2023 End: 07-17-2023 Sulfamethoxazole-Trimethopri m (Bactrim) 400-80 mg tablet Discontinued 1 {tbl} PO TWICE A DAY July 08, 2023 12:00am July 17, 2023 4:08am traZODone hydrochloride 50 mg oral tablet (20 sources) Serotonin Reuptake Inhibitor Start: 11-21-2022 End: 07-17-2023 take 1 tablet by mouth once daily Trazodone 50 mg tablet Discontinued 50 mg PO DAILY July 08, 2023 12:00am July 17, 2023 4:08am vancomycin 1250 mg injection (6 sources) Glycopeptide Antibacterial Start: 07-03-2024 End: 08-08-2024 Vancomycin 1.25 gram recon soln Discontinued 1.25 g IV Q24H 37 July 03, 2024 12:00am August 08, 2024 8:41pm stop date 08/12/24. Dx: spine osteomyelitis. Weekly bmp, cbc, vanc trough, and esr. Fax to [phone]. Routine picc care per protocol. Problems Active Problems Problem Classification Problem Date Documented Da te Episodic/Chronic Abdominal pain (4 sources) Abdominal pain - cause unknown; Translations: [Unspecified abdominal pain] Onset: 5 01-31-2025 Episodic Administrative/social admission (2 sources) Encounter for administrative examinations, unspecified; Translations: [Encounter for administrative examinations, unspecified] Onset: 3 Episodic Chronic ulcer of skin (12 sources) Chronic ulcer of skin; Translations: [Non-pressure chronic ulcer of skin of other sites with muscle involvement without evidence of necrosis] Onset: 4 12-17-2023 Chronic Comment on above: posterior neck Deficiency and other anemia (20 sources) Anemia; Translations: [Anemia, unspecified] 2023 Episodic Deficiency and other anemia (20 sources) Anemia, unspecified; Translations: [Anemia, unspecified] Onset: 5 2023 Episodic Disorders of lipid metabolism (20 sources) Mixed hyperlipidemia; Translations: [Mixed hyperlipidemia] Onset: 9 Chronic Esophageal disorders (8 sources) Gastroesophageal reflux disease; Translations: [Gastro-esophageal reflux disease without esophagitis] Onset: 4 07-10-2024 Chronic Essential hypertension (20 sources) Essential hypertension; Translations: [Essential (primary) hypertension] Onset: 7 Chronic Fever of unknown origin (6 sources) Fever; Translations: [Fever, unspecified] 06-18-2024 Episodic Genitourinary symptoms and ill-defined conditions (20 sources) [id number] retention of urine; Translations: [Retention of urine, unspecified] Onset: 5 07-17-2023 Episodic Hyperplasia of prostate (11 sources) Benign prostatic hypertrophy with outflow obstruction; Translations: [Benign prostatic hyperplasia with lower urinary tract symptoms] Onset: 5 11-10-2024 Chronic Infective arthritis and osteomyelitis (except that caused by tuberculosis or sexually transmitted disease) (8 sources) Osteomyelitis of vertebra; Translations: [Osteomyelitis of vertebra, thoracic region] Onset: 4 08-21-2024 Chronic Multiple myeloma (20 sources) Multiple myeloma; Translations: [Multiple myeloma not having achieved remission] Onset: 3 Chronic Non-Hodgkin`s lymphoma (2 sources) Personal history of non-Hodgkin lymphomas; Translations: [Personal history of non-Hodgkin lymphomas] Onset: 3 Episodic Nutritional deficiencies (20 sources) Vitamin D deficiency; Translations: [Vitamin D deficiency, unspecified] Onset: 9 Chronic Other connective tissue disease (7 sources) Spasm; Translations: [Other muscle spasm] 07-10-2024 Episodic Other connective tissue disease (7 sources) Neuropathic pain; Translations: [Neuralgia and neuritis, unspecified] 07-10-2024 Episodic Other diseases of bladder and urethra (4 sources) Neurogenic bladder; Translations: [Neuromuscular dysfunction of bladder, unspecified] Onset: 5 11-28-2024 Chronic Other diseases of bladder and urethra (1 source) Neuromuscular dysfunction of bladder, unspecified; Translations: [Neurogenic bladder] Onset: 5 Chronic Other gastrointestinal disorders (8 sources) Abdominal bloating; Translations: [Abdominal distension (gaseous)] 01-04-2025 Episodic Other gastrointestinal disorders (1 source) Abdominal distension (gaseous); Translations: [Abdominal distension (gaseous)] Onset: 5 Episodic Other injuries and conditions due to external causes (1 source) Other injury of unspecified body region, initial encounter; Translations: [Other injury of unspecified body region, initial encounter] Onset: 3 Episodic Other injuries and conditions due to external causes (10 sources) Late effect of radiation; Translations: [Radiation sickness, unspecified, sequela] 12-17-2023 Episodic Other liver diseases (6 sources) Elevated liver enzymes level; Translations: [High liver transaminase level] 06-18-2024 Episodic Other nervous system disorders (20 sources) Spinal cord compression; Translations: [Unspecified cord compression] Onset: 3 11-10-2022 Chronic Other nervous system disorders (2 sources) Unspecified cord compression; Translations: [Unspecified cord compression] Onset: 3 Chronic Other screening for suspected conditions (not mental disorders or infectious disease) (1 source) Encounter for screening for malignant neoplasm of colon; Translations: [Encounter for screening for malignant neoplasm of colon] Onset: 3 Episodic Paralysis (20 sources) Paraplegia; Translations: [Paraplegia, unspecified] Onset: 4 2023 Chronic Comment on above: Spinal cord compress ion October 2022 status post decompression and radiation therapy Phlebitis; thrombophlebitis and thromboembolism (2 sources) 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; Translations: [Chronic embolism and thrombosis of unspecified deep veins of proximal lower extremity, bilateral] Onset: 5 09-08-2023 Chronic Phlebitis; thrombophlebitis and thromboembolism (20 sources) Deep venous thrombosis; Translations: [Acute embolism and thrombosis of unspecified deep veins of unspecified lower extremity] Onset: 5 2023 Episodic Residual codes; unclassified (7 sources) Insomnia; Translations: [Insomnia, unspecified] 07-10-2024 Episodic Secondary malignancies (20 sources) Secondary malignant neoplasm of bone marrow; Translations: [Secondary malignant neoplasm of bone marrow] Onset: 3 11-10-2022 Chronic Secondary malignancies (2 sources) Secondary malignant neoplasm of bone marrow; Translations: [Secondary malignant neoplasm of bone marrow] Onset: 3 Chronic Skin and subcutaneous tissue infections (1 source) Local infection of the skin and subcutaneous tissue, unspecified; Translations: [Local infection of the skin and subcutaneous tissue, unspecified] Onset: 3 Episodic Spondylosis; intervertebral disc disorders; other back problems (6 sources) Degeneration of lumbar intervertebral disc; Translations: [Degenerative disc disease, lumbar] 11-21-2024 Chronic Thyroid disorders (20 sources) Hypothyroidism; Translations: [Hypothyroidism, unspecified] Onset: 9 Chronic Unclassified (2 sources) Wound Care; Translations: [Wound Care] Onset: 4 Unclassified (1 source) 2-3 months Unclassified (1 source) Follow-up in 2 weeks Unclassified (1 source) Low back pain, unspecified; Translations: [Low back pain, unspecified] Onset: 5 Past or Other Problems Problem Classification Problem Date Documented Date Episodic/Chronic Allergic reactions (20 sources) Disorder of soft tissue; Translations: [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] Onset: 02-26-2024 12-17-2023 Episodic Bacterial infection; unspecified site (11 sources) History of methicillin resistant Staphylococcus aureus infection; Translations: [Personal history of Methicillin resistant Staphylococcus aureus infection] Onset: 02-26-2024 12-17-2023 Episodic Complication of device; implant or graft (20 sources) Unspecified complication of genitourinary prosthetic device, implant and graft, initial encounter; Translations: [Complication of urinary catheter] Onset: 01-21-2023 Episodic Complications of surgical procedures or medical care (20 sources) Postoperative wound infection; Translations: [Infection following a procedure, other surgical site, initial encounter] Onset: 12-17-2022 Resolved: 12-18-2022 Episodic E Codes: Adverse effects of medical care (1 source) Radiological procedure and radiotherapy as the cause of abnormal reaction of the patient, or of later complication, without mention of misadventure at the time of the procedure; Translations: [Radiological procedure and radiotherapy as the cause of abnormal reaction of the patient, or of later complication, without mention of misadventure at the time of the procedure] Onset: 02-26-2024 Episodic Immunizations and screening for infectious disease (3 sources) Vaccination given; Translations: [Encounter for immunization] Onset: 08-05-2022 Episodic Malaise and fatigue (20 sources) Asthenia; Translations: [Weakness] Onset: 11-10-2022 11-10-2022 Episodic Mood disorders (3 sources) Mood disorders Onset: 04-14-2023 Resolved: 03-08-2024 04-14-2023 Neoplasms of unspecified nature or uncertain behavior (2 sources) Neoplastic disease; Translations: [Neoplasm of unspecified behavior of bone, soft tissue, and skin] Onset: 11-10-2022 Episodic Nonspecific chest pain (4 sources) Chest discomfort; Translations: [Other chest pain] Onset: 01-29-2022 Episodic Open wounds of head; neck; and trunk (14 sources) Open wound of back; Translations: [Unspecified open wound of unspecified back wall of thorax without penetration into thoracic cavity, initial encounter] Onset: 09-29-2024 11-02-2024 Episodic Comment on above: Resolved Other connective tissue disease (1 source) Neuralgia and neuritis, unspecified; Translations: [Neuralgia and neuritis, unspecified] Onset: 08-31-2024 Episodic Other connective tissue disease (1 source) Other muscle spasm; Translations: [Other muscle spasm] Onset: 08-31-2024 Episodic Other injuries and conditions due to external causes (20 sources) Local infection of wound; Translations: [Other injury of unspecified body region, initial encounter] Onset: 12-01-2022 Episodic Other injuries and conditions due to external causes (3 sources) Radiation sickness, unspecified, sequela; Translations: [Late effect of radiation] Onset: 09-29-2024 12-26-2023 Episodic Other injuries and conditions due to external causes (8 sources) Radiation sickness, unspecified, initial encounter; Translations: [Adverse effect of radiation] Onset: 08-09-2024 07-18-2024 Episodic Other lower respiratory disease (1 source) Shortness of breath; Translations: [Shortness of breath] Onset: 09-29-2024 Episodic Other non-traumatic joint disorders (5 sources) Shoulder pain; Translations: [Pain in left shoulder] Onset: 08-21-2022 Episodic Other non-traumatic joint disorders (2 sources) Pain in left shoulder; Translations: [Pain in left shoulder] Onset: 08-21-2022 Episodic Residual codes; unclassified (20 sources) Personal history of irradiation; Translations: [Personal history of irradiation, presenting hazards to health] Onset: 08-31-2024 08-12-2023 Episodic Residual codes; unclassified (1 source) Insomnia, unspecified; Translations: [Insomnia, unspecified] Onset: 08-31-2024 Episodic Spondylosis; intervertebral disc disorders; other back problems (11 sources) Backache; Translations: [Dorsalgia, unspecified] Onset: 04-29-2022 Episodic Sprains and strains (3 sources) Strain of left trapezius muscle; Translations: [Strain of other muscles, fascia and tendons at shoulder and upper arm level, left arm, initial encounter] Onset: 04-07-2022 Episodic Unclassified (2 sources) Onset: 01-06-2023 Resolved: 04-14-2023 01-06-2023 Urinary tract infections (8 sources) Urinary tract infectious disease; Translations: [Urinary tract infection, site not specified] Onset: 10-21-2024 5 Episodic Results Test Name Value Interpretation Reference Range Facility TSH DL <= 0.005 mIU/L QnOrde red By: Blade Milner on 02-20-2025 TSH Qn 1.690 uIU/mL 0.300-4.200 [facility] ThyroxineOrdered By: Blade nolan on 02-20-2025 T4 [Mass/Vol] 7.1 ug/dL 4.5-12.1 [facility] Urine Cultureon 02-02-2025 URC Below infection leve l. Gram negative mino [place] Count <1000 Normal [facility] Comment on above: Performed By: #### M 100.2200 ####[facility] [address] [place], [address] Albumin Elph [Mass/Vol]Order ed By: Zayda Hanson on 02-01-2025 Albumin [Mass/Vol] 3.2 g/dL 2.9-4.4 [facility] CBC W/Diff, Automatedon Absolute Neut Normal 2.0-7.7 [facility] Comment on above: Result Comment: BLOO D WORK WAS NOT DRAWN Performed By: #### L 100.0100, L500.4050 ####[facility] [address] [place], [address] HCT Normal 40-54 [facility] Comment on above: Result Comment: BLOO D WORK WAS NOT DRAWN Performed By: #### L 100.0100, L500.4050 ####[facility] [address] [place], [address] HGB Normal 13.0-16.5 [facility] Comment on above: Result Comment: BLOO D WORK WAS NOT DRAWN Performed By: #### L 100.0100, L500.4050 ####[facility] [address] [place], [address] MCH Normal 27.0-32.0 [facility] Comment on above: Result Comment: BLOO D WORK WAS NOT DRAWN Performed By: #### L 100.0100, L500.4050 ####[facility] [address] [place], [address] MCHC Normal 32-36 [facility] Comment on above: Result Comment: BLOO D WORK WAS NOT DRAWN Performed By: #### L 100.0100, L500.4050 ####[facility] [address] [place], [address] MCV Normal 80-94 [facility] Comment on above: Result Comment: BLOO D WORK WAS NOT DRAWN Performed By: #### L 100.0100, L500.4050 ####[facility] [address] [place], [address] NEUT% Normal 47-70 [facility] Comment on above: Result Comment: BLOO D WORK WAS NOT DRAWN Performed By: #### L 100.0100, L500.4050 ####[facility] [address] [place], [address] PLT Normal 150-450 [facility] Comment on above: Result Comment: BLOO D WORK WAS NOT DRAWN Performed By: #### L 100.0100, L500.4050 ####[facility] [address] [place], [address] RBC Normal 4.6-6.2 [facility] Comment on above: Result Comment: BLOO D WORK WAS NOT DRAWN Performed By: #### L 100.0100, L500.4050 ####[facility] [address] [place], [address] RDW CV Normal 11.6-14.6 [facility] Comment on above: Result Comment: BLOO D WORK WAS NOT DRAWN Performed By: #### L 100.0100, L500.4050 ####[facility] [address] [place], [address] RDW SD Normal 35.1-43.9 [facility] Comment on above: Result Comment: BLOO D WORK WAS NOT DRAWN Performed By: #### L 100.0100, L500.4050 ####[facility] [address] [place], [place], [address] WBC Normal 4.4-11.0 [facility] Comment on above: Result Comment: BLOO D WORK WAS NOT DRAWN Performed By: #### L 100.0100, L500.4050 ####[facility] [address] [place], [place], [address] CNPNon 02-01-2025 CNPN Telephone (AKURFL) ARMAND BARRON ([id number]) 1955 M Date Time Provider Department 02/01/25 RIC SOUZA During your visit today, we recorded the following information about you: LinMariacy 02/01/2025 3:48 PM Signed [facility] requested records from this patient's last office visit with Dr. Souza and last renal US. [facility] . Records were faxed 02/01/25 and scanned in. Mike Ceballos Allergies As of Date: 02/01/2025 (No Known Allergies) Date Reviewed: 11/28/2024 Reviewed by: Niharika Harrison, RN - Fully Assessed Prescriptions as of 02/01/2025 - acetaminophen (TYLENOL) 500 mg tablet Take 1,000 mg by mouth every 6 hours as needed. - acyclovir (ZOVIRAX) 400 mg tablet Take 400 mg by mouth. - amLODIPine (NORVASC) 10 mg tablet Take 10 mg by mouth. - amoxicillin (AMOXIL) 500 mg capsule - baclofen 5 mg tablet - apixaban (ELIQUIS) 5 mg tab(s) Take 5 mg by mouth. - Ascorbic Acid 1,000 mg tablet Take 1,000 mg by mouth. - cefdinir (OMNICEF) 300 mg capsule - dexAMETHasone (DECADRON) 4 mg tablet Take 4 mg by mouth every 4 weeks. - doxycycline (VIBRA-TABS) 100 mg tablet - ferrous sulfate 325 mg (65 mg iron) tablet Take 325 mg by mouth. - gabapentin (NEURONTIN) 100 mg capsule Take 100 mg by mouth. - levothyroxine (SYNTHROID) 88 mcg tablet Take 88 mcg by mouth. - magnesium hydroxide (MOM) 400 mg/5 mL suspension Take 30 mL by mouth. - metoprolol tartrate, short acting, (LOPRESSOR) 50 mg tablet Take 50 mg by mouth. - apixaban (ELIQUIS) 5 mg tab(s) Take by mouth two times a day. Problem List As Of Date 02/01/2025 Noted Resolved Neurogenic bladder [N31.9] 11/28/2024 Benign prostatic hyperplasia with urinary reten*11/28/2024 Encounter Status:Closed by MIKE CEBALLOS on 02/01/[address] [facility] Comprehensive Metabolic Prof ilon 02-01-2025 ALB Normal 3.4-4.8 [facility] Comment on above: Result Comment: BLOO D WORK WAS NOT DRAWN Performed By: #### L 100.0100, L500.4050 ####[facility] [address] [place], [address] ALK PHOS Normal 40-129 [facility] Comment on above: Result Comment: BLOO D WORK WAS NOT DRAWN Performed By: #### L 100.0100, L500.4050 ####[facility] [address] [place], [address] ALT Normal <=46 [facility] Comment on above: Result Comment: BLOO D WORK WAS NOT DRAWN Performed By: #### L 100.0100, L500.4050 ####[facility] [address] [place], [address] AST Normal <=37 [facility] Comment on above: Result Comment: BLOO D WORK WAS NOT DRAWN Performed By: #### L 100.0100, L500.4050 ####[facility] [address] [place], [address] BUN Normal 4-19 [facility] Comment on above: Result Comment: BLOO D WORK WAS NOT DRAWN Performed By: #### L 100.0100, L500.4050 ####[facility] [address] [place], [address] BUN/CRE Normal 10-20 [facility] Comment on above: Result Comment: BLOO D WORK WAS NOT DRAWN Performed By: #### L 100.0100, L500.4050 ####[facility] [address] [place], [address] Calcium Normal 7.6-11.0 [facility] Comment on above: Result Comment: BLOO D WORK WAS NOT DRAWN Performed By: #### L 100.0100, L500.4050 ####[facility] [address] [place], [address] CL Normal 98-108 [facility] Comment on above: Result Comment: BLOO D WORK WAS NOT DRAWN Performed By: #### L 100.0100, L500.4050 ####[facility] [address] [place], [address] CO2 Normal 21.0-32.0 [facility] Comment on above: Result Comment: BLOO D WORK WAS NOT DRAWN Performed By: #### L 100.0100, L500.4050 ####[facility] [address] [place], [address] CREAT,SERUM Normal 0.70-1.20 [facility] Comment on above: Result Comment: BLOO D WORK WAS NOT DRAWN Performed By: #### L 100.0100, L500.4050 ####[facility] [address] [place], [address] eGFR Normal >60 [facility] Comment on above: Result Comment: BLOO D WORK WAS NOT DRAWN Performed By: #### L 100.0100, L500.4050 ####[facility] [address] [place], [address] GAP Normal 5-15 [facility] Comment on above: Result Comment: BLOO D WORK WAS NOT DRAWN Performed By: #### L 100.0100, L500.4050 ####[facility] [address] [place], [address] GLU Normal 70-99 [facility] Comment on above: Result Comment: BLOO D WORK WAS NOT DRAWN Performed By: #### L 100.0100, L500.4050 ####[facility] [address] [place], [address] Potassium Normal 3.3-5.1 [facility] Comment on above: Result Comment: BLOO D WORK WAS NOT DRAWN Performed By: #### L 100.0100, L500.4050 ####[facility] [address] [place], [address] T BILI Normal 0.00-1.30 [facility] Comment on above: Result Comment: BLOO D WORK WAS NOT DRAWN Performed By: #### L 100.0100, L500.4050 ####[facility] [address] [place], [address] T PROT Normal 5.9-8.4 [facility] Comment on above: Result Comment: BLOO D WORK WAS NOT DRAWN Performed By: #### L 100.0100, L500.4050 ####[facility] [address] [place], [address] Comprehensive Metabolic Profil Normal 133-145 [facility] Comment on above: Result Comment: BLOO D WORK WAS NOT DRAWN Performed By: #### L 100.0100, L500.4050 ####[facility] [address] [place], [address] Interpretation of serum or p lasma protein pattern by immunofixation (narrative resultOrdered By: Zayda Hanson on 02-01-2025 Protein Fractions Immunofixation Johnny [Interp] 0.1 g/dL High Not Observed [facility] No Panel InformationOrdered By: Zayda Hanson on 02-01-2025 Addendum Document Comment . [facility] Comment on above: Protein electrophore sis scan will follow via computer,mail, or lean leader delivery. Oncology Visit Reporton Oncology Visit Report Normal [facility] Serum globulin measurement ( mass/volume)Ordered By: Zayda Hanson on 02-01-2025 Globulin (S) [Mass/Vol] 2.2 g/dL 2.2-3.9 [facility] Serum immunoglobulin kappa l ight chains/immunoglobulin lambda light chains mass ratioOrdered By: Zayda Hanson on 02-01-2025 Immunoglobulin light chains.kappa/Immunoglobu dav light chains.lambda (S) [Mass ratio] 2.91 High 0.26-1.65 [facility] Comment on above: Performed at: [place] [id number] Director: Micky Arreola PhD, Phone: [phone] Serum or plasma IgA measurem ent (mass/volume)Ordered By: Zayda Hanson on 02-01-2025 IgA [Mass/Vol] 18 mg/dL Low 61-945 [facility] Comment on above: Result confirmed on concentration. Serum or plasma IgG measurem ent (mass/volume)Ordered By: Zayda Hanson on 02-01-2025 IgG [Mass/Vol] 433 mg/dL Low [id number] [facility] Serum or plasma alpha 1 glob ulin measurement by electrophoresis (mass/volume)Ordered By: Zayda Hanson on 02-01-2025 Alpha 1 globulin Elph [Mass/Vol] 0.2 g/dL 0.0-0.4 [facility] Alpha 1 globulin Elph [Mass/Vol] 0.8 g/dL 0.4-1.0 [facility] Serum or plasma beta globuli n measurement by electrophoresis (mass/volume)Ordered By: Zayda Hanson on 02-01-2025 Beta globulin Elph [Mass/Vol] 0.8 g/dL 0.7-1.3 [facility] Serum or plasma gamma globul in measurement by electrophoresis (mass/volume)Ordered By: Zayda Hanson on 02-01-2025 Gamma globulin Elph [Mass/Vol] 0.4 g/dL 0.4-1.8 [facility] Serum or plasma immunoelectr ophoresis interpretation (nominal result)Ordered By: Zayda Hanson on 02-01-2025 Interpretation IEP [Interp] Comment High . [facility] Comment on above: Immunofixation shows IgG monoclonal protein with kappalight chain specificity. PLEASE NOTE: Samples from patients receiving DARZALEX(R)(daratumumab) or SARCLISA(R)(isatuximab-irfc) treatmentcan appear as an IgG kappa and mask a complete response(CR). If this patient is receiving these therapies, thisIFE assay interference can be removed by ordering testnumber [id number], Daratumumab-Specific,Serum or [id number], Isatuximab-Specific,Serum and submitting a new sample for testing or bycalling the lab to add this test to the current sample. Serum or plasma immunoglobul in kappa light chains measurement (mass/volume)Ordered By: Zayda Hanson on 02-01-2025 Immunoglobulin light chains.kappa [Mass/Vol] 6.4 mg/L 3.3-19.4 [facility] Serum or plasma protein giovanny urement (mass/volume)Ordered By: Zayda Hanson on 02-01-2025 Protein [Mass/Vol] 5.4 g/dL Low 6.0-8.5 oste r [facility] Abdomen/Pelvis W IV Cont ONL Yon 01-31-2025 Abdomen/Pelvis W IV Cont ONLY Normal [facility] Absolute lymphocyte countOrd ered By: Marleni Newman on 01-31-2025 Lymphocytes Auto (Unsp spec) [#/Vol] 0.55 10*3/uL Low 0.83-4.51 [facility] Absolute neutrophil countOrd ered By: Marleni Newman on 01-31-2025 Neutrophils (Bld) [#/Vol] 2.8 10*3/uL 2.0-7.7 [facility] Anion gap in Serum or Plasma Ordered By: Marleni Newman on 01-31-2025 Anion gap [Moles/Vol] 13 mmol/L 5-15 [facility] Automated lymphocyte count a s percentage of total leukocytesOrdered By: Marleni Newman on 01-31-2025 Lymphocytes/100 WBC Auto (Unsp spec) 14.0 % Low 19-41 [facility] BUN/creatinine ratioOrdered By: Marleni Newman on 01-31-2025 Urea nitrogen/Creatinine [Mass ratio] 17.6 mg/mg 10-20 [facility] Basophil percentageOrdered B y: Marleni Newman on 01-31-2025 Basophils/100 WBC (Bld) 1.3 % High 0-1 [facility] Bilirubin Test strip Ql (U)O rdered By: Marleni Newman on 01-31-2025 Bilirubin Ql (U) Negative Negative [facility] Bilirubin, totalOrdered By: Marleni Newman on 01-31-2025 Bilirubin [Mass/Vol] 0.31 mg/dL 0.00-1.30 [facility] CBC W/Diff, Automatedon Absolute Lymph 0.55 X10 3/uL Low 0.83-4.51 [facility] Comment on above: Performed By: #### L 501.2450, L100.0100, L500.4050, L503.6005 ####[facility] [address] [place], [address] Absolute Neut 2.8 X10 3/uL Normal 2.0-7.7 [facility] Comment on above: Performed By: #### L 501.2450, L100.0100, L500.4050, L503.6005 ####[facility] [address] [place], [address] Basophils/100 WBC (Bld) 1.3 % High 0-1 [facility] Comment on above: Performed By: #### L 501.2450, L100.0100, L500.4050, L503.6005 ####[facility] [address] [place], [address] Eosinophils/100 WBC (Bld) 2.3 % Normal 0-5 [facility] Comment on above: Performed By: #### L 501.2450, L100.0100, L500.4050, L503.6005 ####[facility] [address] [place], [address] Erythrocyte distribution width (RBC) [Ratio] 14.1 % Normal 11.6-14.6 [facility] Comment on above: Performed By: #### L 501.2450, L100.0100, L500.4050, L503.6005 ####[facility] [address] [place], [address] Hematocrit (Bld) [Volume fraction] 40.3 % Normal 40-54 [facility] Comment on above: Performed By: #### L 501.2450, L100.0100, L500.4050, L503.6005 ####[facility] [address] [place], [address] Hemoglobin (Bld) [Mass/Vol] 13.5 g/dL Normal 13.0-16.5 [facility] Comment on above: Performed By: #### L 501.2450, L100.0100, L500.4050, L503.6005 ####[facility] [address] [place], [address] IG% 0.300 Normal 0.0-0.9 [facility] Comment on above: Result Comment: IG% - Immature Granulocytes (promyelocytes, myelocytes andmetamyelocytes) > 1% indicates that a LEFT SHIFT is Present. Performed By: #### L 501.2450, L100.0100, L500.4050, L503.6005 ####[facility] [address] [place], [address] Lymphocytes/100 WBC (Bld) 14.0 % Low 19-41 [facility] Comment on above: Performed By: #### L 501.2450, L100.0100, L500.4050, L503.6005 ####[facility] [address] [place], [address] MCH (RBC) [Entitic mass] 29.6 pg Normal 27.0-32.0 [facility] Comment on above: Performed By: #### L 501.2450, L100.0100, L500.4050, L503.6005 ####[facility] [address] [place], [address] MCHC (RBC) [Mass/Vol] 33.5 g/dL Normal 32-36 [facility] Comment on above: Performed By: #### L 501.2450, L100.0100, L500.4050, L503.6005 ####[facility] [address] [place], [address] MCV (RBC) [Entitic vol] 88.4 fL Normal 80-94 [facility] Comment on above: Performed By: #### L 501.2450, L100.0100, L500.4050, L503.6005 ####[facility] [address] [place], [address] Monocytes/100 WBC (Bld) 10.7 % High 0-10 [facility] Comment on above: Performed By: #### L 501.2450, L100.0100, L500.4050, L503.6005 ####[facility] [address] [place], [address] Neutrophils/100 WBC (Bld) 71.4 % High 47-70 [facility] Comment on above: Performed By: #### L 501.2450, L100.0100, L500.4050, L503.6005 ####[facility] [address] [place], [address] Nucleated RBC (Bld) [#/Vol] 0 10*3/uL Normal 0-5 [facility] Comment on above: Performed By: #### L 501.2450, L100.0100, L500.4050, L503.6005 ####[facility] [address] [place], [address] Platelet mean volume (Bld) [Entitic vol] 10.4 fL Normal 6.2-12.0 [facility] Comment on above: Performed By: #### L 501.2450, L100.0100, L500.4050, L503.6005 ####[facility] [address] [place], [address] Platelets (Bld) [#/Vol] 173 10*3/uL Normal 150-450 [facility] Comment on above: Performed By: #### L 501.2450, L100.0100, L500.4050, L503.6005 ####[facility] [address] [place], [address] RBC (Bld) [#/Vol] 4.56 10*6/uL Low 4.6-6.2 [facility] Comment on above: Performed By: #### L 501.2450, L100.0100, L500.4050, L503.6005 ####[facility] [address] [place], [address] RDW SD 45.8 fl High 35.1-43.9 [facility] Comment on above: Performed By: #### L 501.2450, L100.0100, L500.4050, L503.6005 ####[facility] [address] [place], [address] WBC (Bld) [#/Vol] 3.9 10*3/uL Low 4.4-11.0 [facility] Comment on above: Performed By: #### L 501.2450, L100.0100, L500.4050, L503.6005 ####[facility] [address] [place], [address] Carbon dioxide, total [Moles /volume] in Central venous bloodOrdered By: Marleni Newman on 01-31-2025 CO2 [Moles/Vol] 24.6 mmol/L 21.0-32.0 [facility] Chloride assayOrdered By: Martha Newman on 01-31-2025 Chloride [Moles/Vol] 102 mmol/L 98-108 [facility] Comprehensive Metabolic Prof ilon 01-31-2025 Albumin [Mass/Vol] 4.0 g/dL Normal 3.4-4.8 [facility] Comment on above: Performed By: #### L 501.2450, L100.0100, L500.4050, L503.6005 ####[facility] [address] [place], [address] Albumin/Globulin [Mass ratio] 1.9 {ratio} Normal 0.9-2.4 [facility] Comment on above: Performed By: #### L 501.2450, L100.0100, L500.4050, L503.6005 ####[facility] [address] [place], [address] ALK PHOS 64 U/L Normal 40-129 [facility] Comment on above: Performed By: #### L 501.2450, L100.0100, L500.4050, L503.6005 ####[facility] [address] [place], [address] ALT [Catalytic activity/Vol] 21 U/L Normal <=46 [facility] Comment on above: Performed By: #### L 501.2450, L100.0100, L500.4050, L503.6005 ####[facility] [address] [place], [address] AST [Catalytic activity/Vol] 22 U/L Normal <=37 [facility] Comment on above: Performed By: #### L 501.2450, L100.0100, L500.4050, L503.6005 ####[facility] [address] [place], [address] Bilirubin [Mass/Vol] 0.31 mg/dL Normal 0.00-1.30 [facility] Comment on above: Performed By: #### L 501.2450, L100.0100, L500.4050, L503.6005 ####[facility] [address] [place], [address] BUN/CRE 17.6 RATIO Normal 10-20 [facility] Comment on above: Performed By: #### L 501.2450, L100.0100, L500.4050, L503.6005 ####[facility] [address] [place], [address] Calcium [Mass/Vol] 9.4 mg/dL Normal 7.6-11.0 [facility] Comment on above: Performed By: #### L 501.2450, L100.0100, L500.4050, L503.6005 ####[facility] [address] [place], [address] Chloride [Moles/Vol] 102 mmol/L Normal 98-108 [facility] Comment on above: Performed By: #### L 501.2450, L100.0100, L500.4050, L503.6005 ####[facility] [address] [place], [address] CO2 [Moles/Vol] 24.6 mmol/L Normal 21.0-32.0 [facility] Comment on above: Performed By: #### L 501.2450, L100.0100, L500.4050, L503.6005 ####[facility] [address] [place], [address] Creatinine [Mass/Vol] 0.94 mg/dL Normal 0.70-1.20 [facility] Comment on above: Performed By: #### L 501.2450, L100.0100, L500.4050, L503.6005 ####[facility] [address] [place], [address] ECRCL 77.55 ml/min Normal 50-250 [facility] Comment on above: Performed By: #### L 501.2450, L100.0100, L500.4050, L503.6005 ####[facility] [address] [place], [address] GAP 13 Normal 5-15 [facility] Comment on above: Performed By: #### L 501.2450, L100.0100, L500.4050, L503.6005 ####[facility] [address] [place], [address] GFR/1.73 sq M.predicted among non-blacks MDRD (S/P/Bld) [Vol rate/Area] 89 mL/min/{1.73_m2} Normal >60 [facility] Comment on above: Result Comment: mL/m in/1.73m2 CKD-EPI Creatinine Equation (2020) Performed By: #### L 501.2450, L100.0100, L500.4050, L503.6005 ####[facility] [address] [place], [address] Globulin (S) [Mass/Vol] 2.2 g/dL Normal 2.2-4.2 [facility] Comment on above: Performed By: #### L 501.2450, L100.0100, L500.4050, L503.6005 ####[facility] [address] [place], [address] Glucose [Mass/Vol] 95 mg/dL Normal 70-99 [facility] Comment on above: Performed By: #### L 501.2450, L100.0100, L500.4050, L503.6005 ####[facility] [address] [place], [address] Potassium [Moles/Vol] 4.0 mmol/L Normal 3.3-5.1 [facility] Comment on above: Performed By: #### L 501.2450, L100.0100, L500.4050, L503.6005 ####[facility] [address] [place], [address] Sodium [Moles/Vol] 140 mmol/L Normal 133-145 [facility] Comment on above: Performed By: #### L 501.2450, L100.0100, L500.4050, L503.6005 ####[facility] [address] [place], [address] T PROT 6.2 g/dL Normal 5.9-8.4 [facility] Comment on above: Performed By: #### L 501.2450, L100.0100, L500.4050, L503.6005 ####[facility] [address] [place], [address] Urea nitrogen [Mass/Vol] 17 mg/dL Normal 4-19 [facility] Comment on above: Performed By: #### L 501.2450, L100.0100, L500.4050, L503.6005 ####[facility] [address] [place], [address] Emergency Department Summary on 01-31-2025 Emergency Department Summary Normal [facility] Eosinophil percentageOrdered By: Marleni Newman on 01-31-2025 Eosinophils/100 WBC (Bld) 2.3 % 0-5 [facility] Erythrocyte distribution wid th ratioOrdered By: Marleni Newman on 01-31-2025 Erythrocyte distribution width (RBC) [Ratio] 14.1 % 11.6-14.6 [facility] Erythrocyte distribution wid th standard deviationOrdered By: Marleni Newman on 01-31-2025 Erythrocyte distribution width (RBC) [Ratio] 45.8 fl High 35.1-43.9 [facility] Glomerular filtration rate ( GFR) estimation/1.73 sq m using serum, plasma, or whole bOrdered By: Marleni Newman on 01-31-2025 GFR/1.73 sq M.predicted among non-blacks MDRD (S/P/Bld) [Vol rate/Area] 89 mL/min/{1.73_m2} >60 [facility] Comment on above: mL/min/1.73m2 CKD-EP I Creatinine Equation (2020) Hematocrit Auto (Bld) [Volum e fraction]Ordered By: Marleni Newman on 01-31-2025 Hematocrit (Bld) [Volume fraction] 40.3 % 40-54 [facility] Hemoglobin measurementOrdere d By: Marleni Newman on 01-31-2025 Hemoglobin (Bld) [Mass/Vol] 13.5 g/dL 13.0-16.5 [facility] Immature granulocytes/100 WB C Auto (Bld)Ordered By: Marleni Newman on 01-31-2025 Immature granulocytes/100 WBC (Bld) 0.300 % 0.0-0.9 [facility] Comment on above: IG% - Immature Granu locytes (promyelocytes, myelocytes and metamyelocytes) > 1% indicates that a LEFT SHIFT is Present. Ketones Test strip Ql (U)Ord ered By: Marleni Newman on 01-31-2025 Ketones Ql (U) Negative Negative [facility] Laboratory - Chemistry and C hemistry - challengeOrdered By: Marleni Newman on 01-31-2025 AST [Catalytic activity/Vol] 22 U/L <38 [facility] Lactic Acidon 01-31-2025 Lactate [Moles/Vol] 1.4 mmol/L Normal 0.0-2.0 [facility] Comment on above: Order Comment: Y Performed By: #### L 501.2450, L100.0100, L500.4050, L503.6005 ####[facility] [address] [place], [place], [address] Lactic acid measurementOrder ed By: Marleni Newman on 01-31-2025 Lactate [Moles/Vol] 1.4 mmol/L 0.0-2.0 [facility] Lipaseon 01-31-2025 Lipase [Catalytic activity/Vol] 55 U/L Normal 13-75 [facility] Comment on above: Result Comment: Daniella spring note:LIPASE revised reference range effective 23.New Lipase methodology. Expected to produce lower valuesthan the previous assay method.NEW Reference Range: 13 - 75 U/L Performed By: #### L 501.2450, L100.0100, L500.4050, L503.6005 ####[facility] [address] [place], [address] Lipase measurementOrdered By : Marleni Newman on 01-31-2025 Lipase [Catalytic activity/Vol] 55 U/L 13-75 [facility] Comment on above: Please note:LIPASE r evised reference range effective 23. New Lipase methodology. Expected to produce lower values than the previous assay method. NEW Reference Range: 13 - 75 U/L MCV (mean corpuscular volume ) determinationOrdered By: Marleni Newman on 01-31-2025 MCV (RBC) [Entitic vol] 88.4 fL 80-94 [facility] Mean corpuscular hemoglobin (MCH) determinationOrdered By: Marleni Newman on 01-31-2025 MCH (RBC) [Entitic mass] 29.6 pg 27.0-32.0 [facility] Mean corpuscular hemoglobin concentration (MCHC) determinationOrdered By: Marleni Newman on 01-31-2025 MCHC (RBC) [Mass/Vol] 33.5 g/dL 32-36 [facility] Mean platelet volume determi nationOrdered By: Marleni Newman on 01-31-2025 Platelet mean volume (Bld) [Entitic vol] 10.4 fL 6.2-12.0 [facility] Microscopic analysis of urin e for red blood cells (RBC)Ordered By: Marleni Newman on 01-31-2025 Microscopic analysis of urine for red blood cells (RBC) 0-5 SEEN /hpf 0-5 [facility] Monocyte percentageOrdered B y: Marleni Newman on 01-31-2025 Monocytes/100 WBC (Bld) 10.7 % High 0-10 [facility] Mucus LM Ql (Urine sed)Order ed By: Marleni Newman on 01-31-2025 Mucus Ql (Urine sed) 0 SEEN /hpf [facility] Neutrophil percentageOrdered By: Marleni Newman on 01-31-2025 Neutrophils/100 WBC (Bld) 71.4 % High 47-70 [facility] Nitrite Test strip Ql (U)Ord ered By: Marleni Newman on 01-31-2025 Nitrite Ql (U) Negative Negative [facility] Nucleated red blood cell per centageOrdered By: Marleni Newman on 01-31-2025 Nucleated RBC/100 WBC (Bld) [Ratio] 0 % 0-5 [facility] Platelet countOrdered By: Martha Newman on 01-31-2025 Platelets (Bld) [#/Vol] 173 10*3/uL 150-450 [facility] Potassium measurement (mass/ volume)Ordered By: Marleni Newman on 01-31-2025 Potassium (Unsp spec) [Mass/Vol] 4.0 mmol/L 3.3-5.1 [facility] Protein Test strip Ql (U)Ord ered By: Marleni Newman on 01-31-2025 Protein Ql (U) 15 mg/dl High Negative [facility] RBC Auto (Bld) [#/Vol]Ordere d By: Marleni Newman on 01-31-2025 RBC (Bld) [#/Vol] 4.56 10*6/uL Low 4.6-6.2 [facility] Serum creatinine measurement (mass/volume)Ordered By: Marleni Newman on 01-31-2025 Creatinine [Mass/Vol] 0.94 mg/dL 0.70-1.20 [facility] Serum globulin measurementOr dered By: Marleni Newman on 01-31-2025 Globulin (S) [Mass/Vol] 2.2 g/dL 2.2-4.2 [facility] Serum glucose measurement (m ass/volume)Ordered By: Marleni Newman on 01-31-2025 Glucose [Mass/Vol] 95 mg/dL 70-99 [facility] Serum or plasma alanine oropeza otransferase (ALT) measurementOrdered By: Marleni Newman on 01-31-2025 ALT [Catalytic activity/Vol] 21 U/L <47 [facility] Serum or plasma albumin giovanny urement (mass/volume)Ordered By: Marleni Newman on 01-31-2025 Albumin [Mass/Vol] 4.0 g/dL 3.4-4.8 [facility] Serum or plasma albumin/glob ulin mass ratioOrdered By: Marleni Newman on 01-31-2025 Albumin/Globulin [Mass ratio] 1.9 {ratio} 0.9-2.4 [facility] Serum or plasma alkaline stacy sphatase measurementOrdered By: Marleni Newman on 01-31-2025 ALP [Catalytic activity/Vol] 64 U/L 40-129 [facility] Serum or plasma calcium giovanny urement (mass/volume)Ordered By: Marleni Newman on 01-31-2025 Calcium [Mass/Vol] 9.4 mg/dL 7.6-11.0 [facility] Serum or plasma urea nitroge n measurement (mass/volume)Ordered By: Marleni Newman on 01-31-2025 Urea nitrogen [Mass/Vol] 17 mg/dL 4-19 [facility] Sodium levelOrdered By: Agatha Newman on 01-31-2025 Sodium [Moles/Vol] 140 mmol/L 133-145 [facility] Squamous epithelial cells de tection in urine sediment by light microscopyOrdered By: Marleni Newman on 01-31-2025 Epithelial cells.squamous LM Ql (Urine sed) 0 SEEN /hpf 0-5 [facility] Total proteinOrdered By: Patricia Newman on 01-31-2025 Protein [Mass/Vol] 6.2 g/dL 5.9-8.4 [facility] Urinalysis, Completeon 01-31 RBC 0-5 SEEN Normal 0-5 [facility] Comment on above: Order Comment: CLEAN CATCH Performed By: #### L 400.0001 ####[facility] [address] [place], [address] BACTERIA 0 SEEN Normal None Seen [facility] Comment on above: Order Comment: CLEAN CATCH Performed By: #### L 400.0001 ####[facility] [address] [place], [address] EPI,SQUAMOUS 0 SEEN Normal 0-5 [facility] Comment on above: Order Comment: CLEAN CATCH Performed By: #### L 400.0001 ####[facility] [address] [place], [address] Mucus Ql (Urine sed) 0 SEEN Normal [facility] Comment on above: Order Comment: CLEAN CATCH Performed By: #### L 400.0001 ####[facility] [address] [place], [address] WBC 0 SEEN Normal 0-5 [facility] Comment on above: Order Comment: CLEAN CATCH Performed By: #### L 400.0001 ####[facility] [address] [place], [address] Urine clarityOrdered By: Patricia Newman on 01-31-2025 Clarity (U) Clear Clear [facility] Urine color determinationOrd ered By: Marleni Newman on 01-31-2025 Color (U) Yellow Yellow [facility] Urine cultureOrdered By: Patricia Newman on 01-31-2025 Bacteria identified Cx Nom (U) Negative Abnormal [facility] Urine glucose detectionOrder ed By: Marleni Newman on 01-31-2025 Glucose Ql (U) Normal mg/dl Normal [facility] Urine leukocyte esterase det ection by dipstickOrdered By: Marleni Newman on 01-31-2025 Leukocyte esterase Test strip Ql (U) Negative Negative [facility] Urine pHOrdered By: Marleni Ricardo gur on 01-31-2025 pH (U) 7.0 [pH] 5.0 - 8.0 [facility] Urine sediment bacteria coun t by microscopy (number/high power field)Ordered By: Marleni Newman on 01-31-2025 Bacteria LM.HPF (Urine sed) [#/Area] 0 /[HPF] None Seen [facility] Urine specific gravity measu rementOrdered By: Marleni Newman on 01-31-2025 Specific gravity (U) [Rel density] 1.010 1.002-1.030 [facility] Urine urobilinogen measureme ntOrdered By: Marleni Newman on 01-31-2025 Urobilinogen Ql (U) Normal mg/dl Normal [facility] White blood cell (WBC) count Ordered By: Marleni Newman on 01-31-2025 WBC (Bld) [#/Vol] 3.9 10*3/uL Low 4.4-11.0 [facility] White blood cell countOrdere d By: Marleni Newman on 01-31-2025 White blood cell count 0 SEEN /hpf 0-5 [facility] Anion gap in Serum or Plasma Ordered By: Blade Milner on 01-11-2025 Anion gap [Moles/Vol] 12 mmol/L 5-15 [facility] BUN/creatinine ratioOrdered By: Blade Milner on 01-11-2025 Urea nitrogen/Creatinine [Mass ratio] 19.3 mg/mg 10-20 [facility] Carbon dioxide, total [Moles /volume] in Central venous bloodOrdered By: Blade Milner on 01-11-2025 CO2 [Moles/Vol] 27.2 mmol/L 21.0-32.0 [facility] Chloride assayOrdered By: Zacarias Milner on 01-11-2025 Chloride [Moles/Vol] 102 mmol/L 98-108 [facility] Glomerular filtration rate ( GFR) estimation/1.73 sq m using serum, plasma, or whole bOrdered By: Blade Milner on 01-11-2025 GFR/1.73 sq M.predicted among non-blacks MDRD (S/P/Bld) [Vol rate/Area] 79 mL/min/{1.73_m2} >60 [facility] Comment on above: mL/min/1.73m2 CKD-EP I Creatinine Equation (2020) Iron measurement (mass/mass) Ordered By: Blade Milner on 01-11-2025 Iron (Unsp spec) [Mass/Mass] 42 ug/dL Low 65-175 [facility] Magnesium measurement (mass/ volume)Ordered By: Blade Milner on 01-11-2025 Magnesium (Unsp spec) [Mass/Vol] 1.7 mg/dL 1.5-2.2 [facility] Potassium measurement (mass/ volume)Ordered By: Blade Milner on 01-11-2025 Potassium (Unsp spec) [Mass/Vol] 4.1 mmol/L 3.3-5.1 [facility] Serum creatinine measurement (mass/volume)Ordered By: Blade Milner on 01-11-2025 Creatinine [Mass/Vol] 1.04 mg/dL 0.70-1.20 [facility] Serum glucose measurement (m ass/volume)Ordered By: Blade Milner on 01-11-2025 Glucose [Mass/Vol] 98 mg/dL 70-99 [facility] Serum or plasma calcium giovanny urement (mass/volume)Ordered By: Blade Milner on 01-11-2025 Calcium [Mass/Vol] 9.8 mg/dL 7.6-11.0 [facility] Serum or plasma ferritin blake surement (mass/volume)Ordered By: Blade Milner on 01-11-2025 Ferritin [Mass/Vol] 105 ng/mL 37-417 [facility] Serum or plasma urea nitroge n measurement (mass/volume)Ordered By: Blade Milner on 01-11-2025 Urea nitrogen [Mass/Vol] 20 mg/dL High 4-19 [facility] Sodium levelOrdered By: Stalin Milner on 01-11-2025 Sodium [Moles/Vol] 141 mmol/L 133-145 [facility] TSH DL <= 0.005 mIU/L QnOrde red By: Blade Milner on 01-11-2025 TSH Qn 4.930 uIU/mL High 0.300-4.200 [facility] ThyroxineOrdered By: Blade nolan on 01-11-2025 T4 [Mass/Vol] 8.3 ug/dL 4.5-12.1 [facility] ELINA + Protein Elect, Serumon 01-09-2025 Albumin [Mass/Vol] 3.7 g/dL Normal 2.9-4.4 [facility] Comment on above: Order Comment: N Performed By: #### L 3130.0010, L3100.3425 ####[facility] [address] [place], [address] Albumin/Globulin [Mass ratio] 1.7 {ratio} Normal 0.7-1.7 [facility] Comment on above: Order Comment: N Performed By: #### L 3130.0010, L3100.3425 ####[facility] [address] [place], [address] GKRDX-2-EUMJ 0.2 g/dL Normal 0.0-0.4 [facility] Comment on above: Order Comment: N Performed By: #### L 3130.0010, L3100.3425 ####[facility] [address] [place], [address] TTAIW-6-JEGZ 0.8 g/dL Normal 0.4-1.0 [facility] Comment on above: Order Comment: N Performed By: #### L 3130.0010, L3100.3425 ####[facility] [address] [place], [address] BETA GLOBULIN 0.9 g/dL Normal 0.7-1.3 [facility] Comment on above: Order Comment: N Performed By: #### L 3130.0010, L3100.3425 ####[facility] [address] [place], [address] GAMMA GLOBULIN 0.4 g/dL Normal 0.4-1.8 [facility] Comment on above: Order Comment: N Performed By: #### L 3130.0010, L3100.3425 ####[facility] [address] [place], [address] Globulin (S) [Mass/Vol] 2.2 g/dL Normal 2.2-3.9 [facility] Comment on above: Order Comment: N Performed By: #### L 3130.0010, L3100.3425 ####[facility] [address] [place], [address] ELINA RESULT,S Comment Abnormal . [facility] Comment on above: Order Comment: N Result Comment: Immu nofixation shows IgG monoclonal protein with kappalight chain specificity. PLEASE NOTE: Samples from patients receiving DARZALEX(R)(daratumumab) or SARCLISA(R)(isatuximab-irfc) treatmentcan appear as an IgG kappa and mask a complete response(CR). If this patient is receiving these therapies, thisIFE assay interference can be removed by ordering testnumber [id number], Daratumumab-Specific,Serum or [id number], Isatuximab-Specific,Serum and submitting a new sample for testing or bycalling the lab to add this test to the current sample. Performed By: #### L 3130.0010, L3100.3425 ####[facility] [address] [place], [address] IMMUNOGLOB A QN 20 mg/dL Low 61-437 [facility] Comment on above: Order Comment: N Result Comment: Resu lt confirmed on concentration. Performed By: #### L 3130.0010, L3100.3425 ####[facility] [address] [facility] [address] IMMUNOGLOB G QN 495 mg/dL Low 603-1613 [facility] Comment on above: Order Comment: N Performed By: #### L 3130.0010, L3100.3425 ####[facility] [address] [place], [address] IMMUNOGLOB M QN 15 mg/dL Low 20-172 [facility] Comment on above: Order Comment: N Result Comment: Resu lt confirmed on concentration. Performed By: #### L 3130.0010, L3100.3425 ####[facility] [address] [facility] [address] M-Raúl 0.1 g/dL Abnormal Not Observed [facility] Comment on above: Order Comment: N Performed By: #### L 3130.0010, L3100.3425 ####[facility] [address] [place], [address] NOTE: Comment Normal . [facility] Comment on above: Order Comment: N Result Comment: Prot ein electrophoresis scan will follow via computer,mail, or lean leader delivery. Performed By: #### L 3130.0010, L3100.3425 ####[facility] [address] [place], [address] Protein [Mass/Vol] 5.9 g/dL Low 6.0-8.5 [facility] Comment on above: Order Comment: N Performed By: #### L 3130.0010, L3100.3425 ####[facility] [address] [place], [address] [place] [employer] 01-09-2025 FR KAPPA LT CHN 5.4 mg/L Normal 3.3-19.4 [facility] Comment on above: Performed By: #### L 3130.0010, L3100.3425 ####[facility] [address] [place], [address] FR LAMBDA LT CH 2.7 mg/L Abnormal 5.7-26.3 [facility] Comment on above: Performed By: #### L 3130.0010, L3100.3425 ####[facility] [address] [place], [address] KAPPA/LAMBDA % 2.00 Abnormal 0.26-1.65 [facility] Comment on above: Result Comment: Perf ormed at: [facility] [address] [id number] Director: Micky Arreola PhD, Phone: [phone] Performed By: #### L 3130.0010, L3100.3425 ####[facility] [address] [place], [place], [address] Abdomen Single Viewon 2024 Abdomen Single View Normal [facility] Absolute lymphocyte countOrd ered By: [facility] Chris on 01-04-2025 Lymphocytes Auto (Unsp spec) [#/Vol] 0.53 10*3/uL Low 0.83-4.51 [facility] Absolute neutrophil countOrd ered By: [facility] on 01-04-2025 Neutrophils (Bld) [#/Vol] 3.9 10*3/uL 2.0-7.7 [facility] Albumin Elph [Mass/Vol]Order ed By: [facility] on 01-04-2025 Albumin [Mass/Vol] 3.7 g/dL 2.9-4.4 [facility] Anion gap in Serum or Plasma Ordered By: [facility] Chris on 01-04-2025 Anion gap [Moles/Vol] 11 mmol/L 5-15 [facility] Automated lymphocyte count a s percentage of total leukocytesOrdered By: [facility] on 01-04-2025 Lymphocytes/100 WBC Auto (Unsp spec) 10.3 % Low 19-41 [facility] BUN/creatinine ratioOrdered By: [facility] on 01-04-2025 Urea nitrogen/Creatinine [Mass ratio] 18.3 mg/mg 10-20 [facility] Basophil percentageOrdered B y: [facility] Chris on 01-04-2025 Basophils/100 WBC (Bld) 0.6 % 0-1 [facility] Bilirubin, totalOrdered By: [facility] on 01-04-2025 Bilirubin [Mass/Vol] 0.35 mg/dL 0.00-1.30 [facility] CBC W/Diff, Automatedon 12-26 Absolute Lymph 0.53 X10 3/uL Low 0.83-4.51 [facility] Comment on above: Performed By: #### L 500.4050, L100.0100 ####[facility] [address] [place], [address] Absolute Neut 3.9 X10 3/uL Normal 2.0-7.7 [facility] Comment on above: Performed By: #### L 500.4050, L100.0100 ####[facility] [address] [place], [address] Basophils/100 WBC (Bld) 0.6 % Normal 0-1 [facility] Comment on above: Performed By: #### L 500.4050, L100.0100 ####[facility] [address] [place], [address] Eosinophils/100 WBC (Bld) 2.3 % Normal 0-5 [facility] Comment on above: Performed By: #### L 500.4050, L100.0100 ####[facility] [address] [place], [address] Erythrocyte distribution width (RBC) [Ratio] 14.6 % Normal 11.6-14.6 [facility] Comment on above: Performed By: #### L 500.4050, L100.0100 ####[facility] [address] [place], [address] Hematocrit (Bld) [Volume fraction] 39.8 % Low 40-54 [facility] Comment on above: Performed By: #### L 500.4050, L100.0100 ####[facility] [address] [place], [address] Hemoglobin (Bld) [Mass/Vol] 13.0 g/dL Normal 13.0-16.5 [facility] Comment on above: Performed By: #### L 500.4050, L100.0100 ####[facility] [address] [place], [address] IG% 0.200 Normal 0.0-0.9 [facility] Comment on above: Result Comment: IG% - Immature Granulocytes (promyelocytes, myelocytes andmetamyelocytes) > 1% indicates that a LEFT SHIFT is Present. Performed By: #### L 500.4050, L100.0100 ####[facility] [address] [place], [address] Lymphocytes/100 WBC (Bld) 10.3 % Low 19-41 [facility] Comment on above: Performed By: #### L 500.4050, L100.0100 ####[facility] [address] [place], [address] MCH (RBC) [Entitic mass] 29.3 pg Normal 27.0-32.0 [facility] Comment on above: Performed By: #### L 500.4050, L100.0100 ####[facility] [address] [place], [address] MCHC (RBC) [Mass/Vol] 32.7 g/dL Normal 32-36 [facility] Comment on above: Performed By: #### L 500.4050, L100.0100 ####[facility] [address] [place], [address] MCV (RBC) [Entitic vol] 89.6 fL Normal 80-94 [facility] Comment on above: Performed By: #### L 500.4050, L100.0100 ####[facility] [address] [place], [address] Monocytes/100 WBC (Bld) 10.7 % High 0-10 [facility] Comment on above: Performed By: #### L 500.4050, L100.0100 ####[facility] [address] [place], [address] Neutrophils/100 WBC (Bld) 75.9 % High 47-70 [facility] Comment on above: Performed By: #### L 500.4050, L100.0100 ####[facility] [address] [place], [address] Nucleated RBC (Bld) [#/Vol] 0 10*3/uL Normal 0-5 [facility] Comment on above: Performed By: #### L 500.4050, L100.0100 ####[facility] [address] [place], [address] Platelet mean volume (Bld) [Entitic vol] 10.7 fL Normal 6.2-12.0 [facility] Comment on above: Performed By: #### L 500.4050, L100.0100 ####[facility] [address] [place], [address] Platelets (Bld) [#/Vol] 169 10*3/uL Normal 150-450 [facility] Comment on above: Performed By: #### L 500.4050, L100.0100 ####[facility] [address] [place], [address] RBC (Bld) [#/Vol] 4.44 10*6/uL Low 4.6-6.2 [facility] Comment on above: Performed By: #### L 500.4050, L100.0100 ####[facility] [address] [place], [address] RDW SD 48.1 fl High 35.1-43.9 [facility] Comment on above: Performed By: #### L 500.4050, L100.0100 ####[facility] [address] [place], [address] WBC (Bld) [#/Vol] 5.1 10*3/uL Normal 4.4-11.0 [facility] Comment on above: Performed By: #### L 500.4050, L100.0100 ####[facility] [address] [place], [address] Carbon dioxide, total [Moles /volume] in Central venous bloodOrdered By: Jenn Perez on 01-04-2025 CO2 [Moles/Vol] 26.5 mmol/L 21.0-32.0 [facility] Chloride assayOrdered By: Lorene Perez on 01-04-2025 Chloride [Moles/Vol] 100 mmol/L 98-108 [facility] Comprehensive Metabolic Prof ilon 01-04-2025 Albumin [Mass/Vol] 4.2 g/dL Normal 3.4-4.8 [facility] Comment on above: Performed By: #### L 500.4050, L100.0100 ####[facility] [address] [place], [address] Albumin/Globulin [Mass ratio] 2.1 {ratio} Normal 0.9-2.4 [facility] Comment on above: Performed By: #### L 500.4050, L100.0100 ####[facility] [address] [place], [address] ALK PHOS 59 U/L Normal 40-129 [facility] Comment on above: Performed By: #### L 500.4050, L100.0100 ####[facility] [address] [place], [address] ALT [Catalytic activity/Vol] 16 U/L Normal <=46 [facility] Comment on above: Performed By: #### L 500.4050, L100.0100 ####[facility] [address] [place], [address] AST [Catalytic activity/Vol] 16 U/L Normal <=37 [facility] Comment on above: Performed By: #### L 500.4050, L100.0100 ####[facility] [address] [place], [address] Bilirubin [Mass/Vol] 0.35 mg/dL Normal 0.00-1.30 [facility] Comment on above: Performed By: #### L 500.4050, L100.0100 ####[facility] [address] [place], [address] BUN/CRE 18.3 RATIO Normal 10-20 [facility] Comment on above: Performed By: #### L 500.4050, L100.0100 ####[facility] [address] [place], [address] Calcium [Mass/Vol] 9.6 mg/dL Normal 7.6-11.0 [facility] Comment on above: Performed By: #### L 500.4050, L100.0100 ####[facility] [address] [place], [address] Chloride [Moles/Vol] 100 mmol/L Normal 98-108 [facility] Comment on above: Performed By: #### L 500.4050, L100.0100 ####[facility] [address] [place], [address] CO2 [Moles/Vol] 26.5 mmol/L Normal 21.0-32.0 [facility] Comment on above: Performed By: #### L 500.4050, L100.0100 ####[facility] [address] [place], [address] Creatinine [Mass/Vol] 1.12 mg/dL Normal 0.70-1.20 [facility] Comment on above: Performed By: #### L 500.4050, L100.0100 ####[facility] [address] [place], [address] ECRCL 64.94 ml/min Normal 50-250 [facility] Comment on above: Performed By: #### L 500.4050, L100.0100 ####[facility] [address] [place], [address] GAP 11 Normal 5-15 [facility] Comment on above: Performed By: #### L 500.4050, L100.0100 ####[facility] [address] [place], [address] GFR/1.73 sq M.predicted among non-blacks MDRD (S/P/Bld) [Vol rate/Area] 72 mL/min/{1.73_m2} Normal >60 [facility] Comment on above: Result Comment: mL/m in/1.73m2 CKD-EPI Creatinine Equation (2020) Performed By: #### L 500.4050, L100.0100 ####[facility] [address] [place], [address] Globulin (S) [Mass/Vol] 2.0 g/dL Low 2.2-4.2 [facility] Comment on above: Performed By: #### L 500.4050, L100.0100 ####[facility] [address] [place], [address] Glucose [Mass/Vol] 116 mg/dL High 70-99 [facility] Comment on above: Performed By: #### L 500.4050, L100.0100 ####[facility] [address] [place], [address] Potassium [Moles/Vol] 4.2 mmol/L Normal 3.3-5.1 [facility] Comment on above: Performed By: #### L 500.4050, L100.0100 ####[facility] [address] [place], [address] Sodium [Moles/Vol] 138 mmol/L Normal 133-145 [facility] Comment on above: Performed By: #### L 500.4050, L100.0100 ####[facility] [address] [place], [address] T PROT 6.2 g/dL Normal 5.9-8.4 [facility] Comment on above: Performed By: #### L 500.4050, L100.0100 ####[facility] [address] [place], [place], [address] Urea nitrogen [Mass/Vol] 21 mg/dL High 4-19 [facility] Comment on above: Performed By: #### L 500.4050, L100.0100 ####[facility] [address] [place], [address] Eosinophil percentageOrdered By: Jenn Perez on 01-04-2025 Eosinophils/100 WBC (Bld) 2.3 % 0-5 [facility] Erythrocyte distribution wid th (RBC) [Ratio]Ordered By: Jenn Perez on 01-04-2025 Erythrocyte distribution width (RBC) [Entitic vol] 48.1 fL High 35.1-43.9 [facility] Erythrocyte distribution wid th ratioOrdered By: [facility] on 01-04-2025 Erythrocyte distribution width (RBC) [Ratio] 14.6 % 11.6-14.6 [facility] Erythrocyte distribution wid th standard deviationOrdered By: [facility] on 01-04-2025 Erythrocyte distribution width (RBC) [Ratio] 48.1 fl High 35.1-43.9 [facility] Estimation of creatinine gavin aranceOrdered By: Jenn Perez on 01-04-2025 Estimated Creatinine Clearance Calc 64.94 ml/min 50-250 [facility] GFR/1.73 sq M.predicted jesus g non-blacks MDRD (S/P/Bld) [Vol rate/Area]Ordered By: Jenn Perez on 01-04-2025 Estimated GFR (MDRD) Non-Af Amer 72 >60 [facility] Comment on above: mL/min/1.73m2 CKD-EP I Creatinine Equation (2020) Glomerular filtration rate ( GFR) estimation/1.73 sq m using serum, plasma, or whole bOrdered By: Jenn Perez on 01-04-2025 GFR/1.73 sq M.predicted among non-blacks MDRD (S/P/Bld) [Vol rate/Area] 72 mL/min/{1.73_m2} >60 [place] [facility] Comment on above: mL/min/1.73m2 CKD-EP I Creatinine Equation (2020) Hematocrit Auto (Bld) [Volum e fraction]Ordered By: Jenn Perez on 01-04-2025 Hematocrit (Bld) [Volume fraction] 39.8 % Low 40-54 [facility] Hemoglobin measurementOrdere d By: Jenn Perez on 01-04-2025 Hemoglobin (Bld) [Mass/Vol] 13.0 g/dL 13.0-16.5 [facility] Immature granulocytes/100 WB C Auto (Bld)Ordered By: Jenn Perez on 01-04-2025 Immature granulocytes/100 WBC (Bld) 0.200 % 0.0-0.9 [facility] Comment on above: IG% - Immature Granu locytes (promyelocytes, myelocytes and metamyelocytes) > 1% indicates that a LEFT SHIFT is Present. Interpretation of serum or p lasma protein pattern by immunofixation (narrative resultOrdered By: Jenn Perez on 01-04-2025 Protein Fractions Immunofixation Johnny [Interp] 0.1 g/dL High Not Observed [facility] Laboratory - Chemistry and C hemistry - challengeOrdered By: Jenn Perez on 01-04-2025 AST [Catalytic activity/Vol] 16 U/L <38 [facility] Lymphocytes Auto (Unsp spec) [#/Vol]Ordered By: Jenn Perez on 01-04-2025 Lymphocytes (Bld) [#/Vol] 0.53 10*3/uL Low 0.83-4.51 [facility] Lymphocytes/100 WBC Auto (Un sp spec)Ordered By: Jenn Perez on 01-04-2025 Lymphocytes/100 WBC (Bld) 10.3 % Low 19-41 [facility] MCV (mean corpuscular volume ) determinationOrdered By: Jenn Perez on 01-04-2025 MCV (RBC) [Entitic vol] 89.6 fL 80-94 [facility] Mean corpuscular hemoglobin (MCH) determinationOrdered By: Jenn Perez on 01-04-2025 MCH (RBC) [Entitic mass] 29.3 pg 27.0-32.0 [facility] Mean corpuscular hemoglobin concentration (MCHC) determinationOrdered By: Jenn Perez on 01-04-2025 MCHC (RBC) [Mass/Vol] 32.7 g/dL 32-36 [facility] Mean platelet volume determi nationOrdered By: Jenn Perez on 01-04-2025 Platelet mean volume (Bld) [Entitic vol] 10.7 fL 6.2-12.0 [facility] Monocyte percentageOrdered B y: Jenn Perez on 01-04-2025 Monocytes/100 WBC (Bld) 10.7 % High 0-10 [facility] Neutrophil percentageOrdered By: Jenn Perez on 01-04-2025 Neutrophils/100 WBC (Bld) 75.9 % High 47-70 [facility] No Panel InformationOrdered By: Jenn Perez on 01-04-2025 Addendum Document Comment . [facility] Comment on above: Protein electrophore sis scan will follow via computer,mail, or lean leader delivery. Nucleated red blood cell per centageOrdered By: Jenn Perez on 01-04-2025 Nucleated RBC/100 WBC (Bld) [Ratio] 0 % 0-5 [facility] Oncology Visit Reporton 12-26 Oncology Visit Report Normal [facility] Platelet countOrdered By: Lorene Perez on 01-04-2025 Platelets (Bld) [#/Vol] 169 10*3/uL 150-450 [facility] Potassium (Unsp spec) [Mass/ Vol]Ordered By: Jenn Perez on 01-04-2025 Potassium [Moles/Vol] 4.2 mmol/L 3.3-5.1 [facility] Potassium measurement (mass/ volume)Ordered By: Jenn Perez on 01-04-2025 Potassium (Unsp spec) [Mass/Vol] 4.2 mmol/L 3.3-5.1 [facility] RBC Auto (Bld) [#/Vol]Ordere d By: Jenn Perez on 01-04-2025 RBC (Bld) [#/Vol] 4.44 10*6/uL Low 4.6-6.2 [facility] Serum creatinine measurement (mass/volume)Ordered By: Jenn Perez on 01-04-2025 Creatinine [Mass/Vol] 1.12 mg/dL 0.70-1.20 [facility] Serum globulin measurementOr dered By: Jenn Perez on 01-04-2025 Globulin (S) [Mass/Vol] 2.0 g/dL Low 2.2-4.2 [facility] Serum globulin measurement ( mass/volume)Ordered By: Jenn Perez on 01-04-2025 Globulin (S) [Mass/Vol] 2.2 g/dL 2.2-3.9 [facility] Serum glucose measurement (m ass/volume)Ordered By: Jenn Perez on 01-04-2025 Glucose [Mass/Vol] 116 mg/dL High 70-99 [facility] Serum immunoglobulin kappa l ight chains/immunoglobulin lambda light chains mass ratioOrdered By: Jenn Perez on 01-04-2025 Immunoglobulin light chains.kappa/Immunoglobu dav light chains.lambda (S) [Mass ratio] 2.00 High 0.26-1.65 [facility] Comment on above: Performed at: [place] [id number] Director: Micky Arreola PhD, Phone: [phone] Serum or plasma IgA measurem ent (mass/volume)Ordered By: Jenn Perez on 01-04-2025 IgA [Mass/Vol] 20 mg/dL Low 61-437 [facility] Comment on above: Result confirmed on concentration. Serum or plasma IgG measurem ent (mass/volume)Ordered By: Jenn Perez on 01-04-2025 IgG [Mass/Vol] 495 mg/dL Low 603-1613 [facility] Serum or plasma alanine oropeza otransferase (ALT) measurementOrdered By: Jenn Perez on 01-04-2025 ALT [Catalytic activity/Vol] 16 U/L <47 [facility] Serum or plasma albumin giovanny urement (mass/volume)Ordered By: Jenn Perez on 01-04-2025 Albumin [Mass/Vol] 4.2 g/dL 3.4-4.8 [facility] Serum or plasma albumin/glob ulin mass ratioOrdered By: Georginadayanna Perez on 01-04-2025 Albumin/Globulin [Mass ratio] 2.1 {ratio} 0.9-2.4 [facility] Serum or plasma alkaline stacy sphatase measurementOrdered By: Jenn Perez on 01-04-2025 ALP [Catalytic activity/Vol] 59 U/L 40-129 [facility] Serum or plasma alpha 1 glob ulin measurement by electrophoresis (mass/volume)Ordered By: [facility] Chris on 01-04-2025 Alpha 1 globulin Elph [Mass/Vol] 0.2 g/dL 0.0-0.4 [facility] Alpha 1 globulin Elph [Mass/Vol] 0.8 g/dL 0.4-1.0 [facility] Serum or plasma beta globuli n measurement by electrophoresis (mass/volume)Ordered By: [facility] on 01-04-2025 Beta globulin Elph [Mass/Vol] 0.9 g/dL 0.7-1.3 [facility] Serum or plasma calcium giovanny urement (mass/volume)Ordered By: [facility] on 01-04-2025 Calcium [Mass/Vol] 9.6 mg/dL 7.6-11.0 [facility] Serum or plasma gamma globul in measurement by electrophoresis (mass/volume)Ordered By: Jenn Perez on 01-04-2025 Gamma globulin Elph [Mass/Vol] 0.4 g/dL 0.4-1.8 [facility] Serum or plasma immunoelectr ophoresis interpretation (nominal result)Ordered By: Jenn Perez on 01-04-2025 Interpretation IEP [Interp] Comment High . [facility] Comment on above: Immunofixation shows IgG monoclonal protein with kappalight chain specificity. PLEASE NOTE: Samples from patients receiving DARZALEX(R)(daratumumab) or SARCLISA(R)(isatuximab-the medical center) treatmentcan appear as an IgG kappa and mask a complete response(CR). If this patient is receiving these therapies, thisIFE assay interference can be removed by ordering testnumber [id number], Daratumumab-Specific,Serum or [id number], Isatuximab-Specific,Serum and submitting a new sample for testing or bycalling the lab to add this test to the current sample. Serum or plasma immunoglobul in kappa light chains measurement (mass/volume)Ordered By: Jenn Perez on 01-04-2025 Immunoglobulin light chains.kappa [Mass/Vol] 5.4 mg/L 3.3-19.4 [facility] Serum or plasma protein giovanny urement (mass/volume)Ordered By: Jenn Perez on 01-04-2025 Protein [Mass/Vol] 5.9 g/dL Low 6.0-8.5 [facility] Serum or plasma urea nitroge n measurement (mass/volume)Ordered By: Jenn Perez on 01-04-2025 Urea nitrogen [Mass/Vol] 21 mg/dL High 4-19 [facility] Sodium levelOrdered By: Georgina Perez on 01-04-2025 Sodium [Moles/Vol] 138 mmol/L 133-145 [facility] Total proteinOrdered By: Lam Perez on 01-04-2025 Protein [Mass/Vol] 6.2 g/dL 5.9-8.4 [facility] White blood cell (WBC) count Ordered By: Jenn Perez on 01-04-2025 WBC (Bld) [#/Vol] 5.1 10*3/uL 4.4-11.0 [facility] CBC W/Diff, Automatedon 040 Absolute Neut Normal 2.0-7.7 [facility] Comment on above: Result Comment: LASHONDA C ANCEL REQUEST Performed By: #### L 100.0100, L500.4050 ####[facility] [address] [place], [address] HCT Normal 40-54 [facility] Comment on above: Result Comment: LASHONDA C ANCEL REQUEST Performed By: #### L 100.0100, L500.4050 ####[facility] [address] [place], [address] HGB Normal 13.0-16.5 [facility] Comment on above: Result Comment: OM C ANCEL REQUEST Performed By: #### L 100.0100, L500.4050 ####[facility] [address] [place], [address] MCH Normal 27.0-32.0 [facility] Comment on above: Result Comment: OM C ANCEL REQUEST Performed By: #### L 100.0100, L500.4050 ####[facility] [address] [place], [address] MCHC Normal 32-36 [facility] Comment on above: Result Comment: OM C ANCEL REQUEST Performed By: #### L 100.0100, L500.4050 ####[facility] [address] [place], [address] MCV Normal 80-94 [facility] Comment on above: Result Comment: OM C ANCEL REQUEST Performed By: #### L 100.0100, L500.4050 ####[facility] [address] [place], [address] NEUT% Normal 47-70 [facility] Comment on above: Result Comment: OM C ANCEL REQUEST Performed By: #### L 100.0100, L500.4050 ####[facility] [address] [place], [address] PLT Normal 150-450 [facility] Comment on above: Result Comment: OM C ANCEL REQUEST Performed By: #### L 100.0100, L500.4050 ####[facility] [address] [place], [address] RBC Normal 4.6-6.2 [facility] Comment on above: Result Comment: OM C ANCEL REQUEST Performed By: #### L 100.0100, L500.4050 ####[facility] [address] [place], [address] RDW CV Normal 11.6-14.6 [facility] Comment on above: Result Comment: OM C ANCEL REQUEST Performed By: #### L 100.0100, L500.4050 ####[facility] [address] [place], [address] RDW SD Normal 35.1-43.9 [facility] Comment on above: Result Comment: OM C ANCEL REQUEST Performed By: #### L 100.0100, L500.4050 ####[facility] [address] [place], [address] WBC Normal 4.4-11.0 [facility] Comment on above: Result Comment: OM C ANCEL REQUEST Performed By: #### L 100.0100, L500.4050 ####[facility] [address] [place], [address] Comprehensive Metabolic Prof ilon 12-27-2024 ALB Normal 3.4-4.8 [facility] Comment on above: Result Comment: REQU EST TO CANCEL ENTERED Performed By: #### L 100.0100, L500.4050 ####[facility] [address] [place], [address] ALK PHOS Normal 40-129 [facility] Comment on above: Result Comment: REQU EST TO CANCEL ENTERED Performed By: #### L 100.0100, L500.4050 ####[facility] [address] [place], [address] ALT Normal <=46 [facility] Comment on above: Result Comment: REQU EST TO CANCEL ENTERED Performed By: #### L 100.0100, L500.4050 ####[facility] [address] [place], [address] AST Normal <=37 [facility] Comment on above: Result Comment: REQU EST TO CANCEL ENTERED Performed By: #### L 100.0100, L500.4050 ####[facility] [address] [place], [address] BUN Normal 4-19 [facility] Comment on above: Result Comment: REQU EST TO CANCEL ENTERED Performed By: #### L 100.0100, L500.4050 ####[facility] [address] [place], [address] BUN/CRE Normal 10-20 [facility] Comment on above: Result Comment: REQU EST TO CANCEL ENTERED Performed By: #### L 100.0100, L500.4050 ####[facility] [address] [place], [address] Calcium Normal 7.6-11.0 [facility] Comment on above: Result Comment: REQU EST TO CANCEL ENTERED Performed By: #### L 100.0100, L500.4050 ####[facility] [address] [place], [address] CL Normal 98-108 [facility] Comment on above: Result Comment: REQU EST TO CANCEL ENTERED Performed By: #### L 100.0100, L500.4050 ####[facility] [address] [place], [address] CO2 Normal 21.0-32.0 [facility] Comment on above: Result Comment: REQU EST TO CANCEL ENTERED Performed By: #### L 100.0100, L500.4050 ####[facility] [address] [place], [address] CREAT,SERUM Normal 0.70-1.20 [facility] Comment on above: Result Comment: REQU EST TO CANCEL ENTERED Performed By: #### L 100.0100, L500.4050 ####[facility] [address] [place], [address] eGFR Normal >60 [facility] Comment on above: Result Comment: REQU EST TO CANCEL ENTERED Performed By: #### L 100.0100, L500.4050 ####[facility] [address] [place], [address] GAP Normal 5-15 [facility] Comment on above: Result Comment: REQU EST TO CANCEL ENTERED Performed By: #### L 100.0100, L500.4050 ####[facility] [address] [place], [address] GLU Normal 70-99 [facility] Comment on above: Result Comment: REQU EST TO CANCEL ENTERED Performed By: #### L 100.0100, L500.4050 ####[facility] [address] [place], [address] Potassium Normal 3.3-5.1 [facility] Comment on above: Result Comment: REQU EST TO CANCEL ENTERED Performed By: #### L 100.0100, L500.4050 ####[facility] [address] [place], [address] T BILI Normal 0.00-1.30 [facility] Comment on above: Result Comment: REQU EST TO CANCEL ENTERED Performed By: #### L 100.0100, L500.4050 ####[facility] [address] [place], [address] T PROT Normal 5.9-8.4 [facility] Comment on above: Result Comment: REQU EST TO CANCEL ENTERED Performed By: #### L 100.0100, L500.4050 ####[facility] [address] [place], [address] Comprehensive Metabolic Profil Normal 133-145 [facility] Comment on above: Result Comment: REQU EST TO CANCEL ENTERED Performed By: #### L 100.0100, L500.4050 ####[facility] [address] [place], [address] ELINA + Protein Elect, Serumon 12-12-2024 Albumin [Mass/Vol] 3.5 g/dL Normal 2.9-4.4 [facility] Comment on above: Order Comment: N Performed By: #### L 500.4050, L3100.3425, L3130.0010, L100.0100 ####[facility] [address] [place], [address] Albumin/Globulin [Mass ratio] 1.5 {ratio} Normal 0.7-1.7 [facility] Comment on above: Order Comment: N Performed By: #### L 500.4050, L3100.3425, L3130.0010, L100.0100 ####[facility] [address] [place], [address] HDIGY-6-ACAR 0.2 g/dL Normal 0.0-0.4 [facility] Comment on above: Order Comment: N Performed By: #### L 500.4050, L3100.3425, L3130.0010, L100.0100 ####[facility] [address] [place], [address] FLZGP-4-WWKZ 0.9 g/dL Normal 0.4-1.0 [facility] Comment on above: Order Comment: N Performed By: #### L 500.4050, L3100.3425, L3130.0010, L100.0100 ####[facility] [address] [place], [address] BETA GLOBULIN 0.9 g/dL Normal 0.7-1.3 [facility] Comment on above: Order Comment: N Performed By: #### L 500.4050, L3100.3425, L3130.0010, L100.0100 ####[facility] [address] [place], [address] GAMMA GLOBULIN 0.4 g/dL Normal 0.4-1.8 [facility] Comment on above: Order Comment: N Performed By: #### L 500.4050, L3100.3425, L3130.0010, L100.0100 ####[facility] [address] [place], [address] Globulin (S) [Mass/Vol] 2.4 g/dL Normal 2.2-3.9 [facility] Comment on above: Order Comment: N Performed By: #### L 500.4050, L3100.3425, L3130.0010, L100.0100 ####[facility] [address] [place], [address] ELINA RESULT,S Comment Abnormal . [facility] Comment on above: Order Comment: N Result Comment: Immu nofixation shows IgG monoclonal protein with kappalight chain specificity. PLEASE NOTE: Samples from patients receiving DARZALEX(R)(daratumumab) or SARCLISA(R)(isatuximab-irfc) treatmentcan appear as an IgG kappa and mask a complete response(CR). If this patient is receiving these therapies, thisIFE assay interference can be removed by ordering testnumber [id number], Daratumumab-Specific,Serum or [id number], Isatuximab-Specific,Serum and submitting a new sample for testing or bycalling the lab to add this test to the current sample. Performed By: #### L 500.4050, L3100.3425, L3130.0010, L100.0100 ####[facility] [address] [place], [address] IMMUNOGLOB A QN 21 mg/dL Low 61-437 [facility] Comment on above: Order Comment: N Result Comment: Resu lt confirmed on concentration. Performed By: #### L 500.4050, L3100.3425, L3130.0010, L100.0100 ####[facility] [address] [place], [address] IMMUNOGLOB G QN 441 mg/dL Low 603-1613 [facility] Comment on above: Order Comment: N Performed By: #### L 500.4050, L3100.3425, L3130.0010, L100.0100 ####[facility] [address] [place], [address] IMMUNOGLOB M QN 15 mg/dL Low 20-172 [facility] Comment on above: Order Comment: N Result Comment: Resu lt confirmed on concentration. Performed By: #### L 500.4050, L3100.3425, L3130.0010, L100.0100 ####[facility] [address] [place], [address] M-Raúl Comment: Normal Not Observed [facility] Comment on above: Order Comment: N Result Comment: Due to the small quantity of monoclonal protein, unable toquantitate the M-spike. Performed By: #### L 500.4050, L3100.3425, L3130.0010, L100.0100 ####[facility] [address] [place], [address] NOTE: Comment Normal . [facility] Comment on above: Order Comment: N Result Comment: Prot ein electrophoresis scan will follow via computer,mail, or lean leader delivery. Performed By: #### L 500.4050, L3100.3425, L3130.0010, L100.0100 ####[facility] [address] [place], [address] Protein [Mass/Vol] 5.9 g/dL Low 6.0-8.5 [facility] Comment on above: Order Comment: N Performed By: #### L 500.4050, L3100.3425, L3130.0010, L100.0100 ####[facility] [address] [place], [address] [facility] [employer] 12-12-2024 FR KAPPA LT CHN 5.7 mg/L Normal 3.3-19.4 [facility] Comment on above: Performed By: #### L 500.4050, L3100.3425, L3130.0010, L100.0100 ####[facility] [address] [place], [place], [address] FR LAMBDA LT CH 2.7 mg/L Abnormal 5.7-26.3 [facility] Comment on above: Performed By: #### L 500.4050, L3100.3425, L3130.0010, L100.0100 ####[facility] [address] [place], [place], [id number] KAPPA/LAMBDA % 2.11 Abnormal 0.26-1.65 [facility] Comment on above: Result Comment: Perf ormed at: [facility] [address] [id number] Director: Micky Arreola PhD, Phone: [phone] Performed By: #### L 500.4050, L3100.3425, L3130.0010, L100.0100 ####[facility] [address] [place], [place], [address] Absolute lymphocyte countOrd ered By: Blade Milner on 12-11-2024 Lymphocytes Auto (Unsp spec) [#/Vol] 0.55 10*3/uL Low 0.83-4.51 [facility] Absolute neutrophil countOrd ered By: Blade Milner on 12-11-2024 Neutrophils (Bld) [#/Vol] 3.2 10*3/uL 2.0-7.7 [facility] Anion gap in Serum or Plasma Ordered By: Blade Milner on 12-11-2024 Anion gap [Moles/Vol] 10 mmol/L 5-15 [facility] Automated lymphocyte count a s percentage of total leukocytesOrdered By: Blade Milner on 12-11-2024 Lymphocytes/100 WBC Auto (Unsp spec) 12.6 % Low 19-41 [facility] BUN/creatinine ratioOrdered By: Blade Milner on 12-11-2024 Urea nitrogen/Creatinine [Mass ratio] 17.7 mg/mg 10-20 [facility] Basophil percentageOrdered B y: Blade Milner on 12-11-2024 Basophils/100 WBC (Bld) 0.7 % 0-1 [facility] Bilirubin, totalOrdered By: Blade Milner on 12-11-2024 Bilirubin [Mass/Vol] 0.29 mg/dL 0.00-1.30 [facility] Carbon dioxide, total [Moles /volume] in Central venous bloodOrdered By: Blade Milner on 12-11-2024 CO2 [Moles/Vol] 27.1 mmol/L 21.0-32.0 [facility] Chloride assayOrdered By: Zacarias Milner on 12-11-2024 Chloride [Moles/Vol] 102 mmol/L 98-108 [facility] Eosinophil percentageOrdered By: Blade Milner on 12-11-2024 Eosinophils/100 WBC (Bld) 2.5 % 0-5 [facility] Erythrocyte distribution wid th ratioOrdered By: Blade Milner on 12-11-2024 Erythrocyte distribution width (RBC) [Ratio] 15.1 % High 11.6-14.6 [facility] Erythrocyte distribution wid th standard deviationOrdered By: Blade Milner on 12-11-2024 Erythrocyte distribution width (RBC) [Entitic vol] 49.0 fL High 35.1-43.9 [facility] Erythrocyte distribution width (RBC) [Ratio] 49.0 fl High 35.1-43.9 [facility] GFR/1.73 sq M.predicted jesus g non-blacks MDRD (S/P/Bld) [Vol rate/Area]Ordered By: Blade Milner on 12-11-2024 Estimated GFR (MDRD) Non-Af Amer 82 >60 [facility] Comment on above: mL/min/1.73m2 CKD-EP I Creatinine Equation (2020) Glomerular filtration rate ( GFR) estimation/1.73 sq m using serum, plasma, or whole bOrdered By: Blade Milner on 12-11-2024 GFR/1.73 sq M.predicted among non-blacks MDRD (S/P/Bld) [Vol rate/Area] 82 mL/min/{1.73_m2} >60 [facility] Comment on above: mL/min/1.73m2 CKD-EP I Creatinine Equation (2020) Hematocrit Auto (Bld) [Volum e fraction]Ordered By: Blade Milner on 12-11-2024 Hematocrit (Bld) [Volume fraction] 41.9 % 40-54 [facility] Hemoglobin measurementOrdere d By: Blade Milner on 12-11-2024 Hemoglobin (Bld) [Mass/Vol] 13.6 g/dL 13.0-16.5 [facility] Immature granulocytes/100 WB C Auto (Bld)Ordered By: Blade Milner on 12-11-2024 Immature granulocytes/100 WBC (Bld) 0.500 % 0.0-0.9 [facility] Comment on above: IG% - Immature Granu locytes (promyelocytes, myelocytes and metamyelocytes) > 1% indicates that a LEFT SHIFT is Present. Iron (Unsp spec) [Mass/Mass] Ordered By: Blade Milner on 12-11-2024 Iron [Mass/Vol] 38 ug/dL Low 65-175 [facility] Iron measurement (mass/mass) Ordered By: Blade Milner on 12-11-2024 Iron (Unsp spec) [Mass/Mass] 38 ug/dL Low 65-175 [facility] Laboratory - Chemistry and C hemistry - challengeOrdered By: Blade Milner on 12-11-2024 AST [Catalytic activity/Vol] 15 U/L <38 [facility] Lymphocytes Auto (Unsp spec) [#/Vol]Ordered By: Blade Milner on 12-11-2024 Lymphocytes (Bld) [#/Vol] 0.55 10*3/uL Low 0.83-4.51 [facility] Lymphocytes/100 WBC Auto (Un sp spec)Ordered By: Blade Milner on 12-11-2024 Lymphocytes/100 WBC (Bld) 12.6 % Low 19-41 [facility] MCV (mean corpuscular volume ) determinationOrdered By: Blade Milner on 12-11-2024 MCV (RBC) [Entitic vol] 88.8 fL 80-94 [facility] Mean corpuscular hemoglobin (MCH) determinationOrdered By: Blade Milner on 12-11-2024 MCH (RBC) [Entitic mass] 28.8 pg 27.0-32.0 [facility] Mean corpuscular hemoglobin concentration (MCHC) determinationOrdered By: Blade Milner on 12-11-2024 MCHC (RBC) [Mass/Vol] 32.5 g/dL 32-36 [facility] Mean platelet volume determi nationOrdered By: Blade Milner on 12-11-2024 Platelet mean volume (Bld) [Entitic vol] 10.6 fL 6.2-12.0 [facility] Monocyte percentageOrdered B y: Blade Milner on 12-11-2024 Monocytes/100 WBC (Bld) 10.8 % High 0-10 [facility] Neutrophil percentageOrdered By: Blade Milner on 12-11-2024 Neutrophils/100 WBC (Bld) 72.9 % High 47-70 [facility] Nucleated red blood cell per centageOrdered By: Blade Milner on 12-11-2024 Nucleated RBC/100 WBC (Bld) [Ratio] 0 % 0-5 [facility] Platelet countOrdered By: Zacarias Milner on 12-11-2024 Platelets (Bld) [#/Vol] 156 10*3/uL 150-450 [facility] Potassium (Unsp spec) [Mass/ Vol]Ordered By: Blade Milner on 12-11-2024 Potassium [Moles/Vol] 4.0 mmol/L 3.3-5.1 [facility] Potassium measurement (mass/ volume)Ordered By: Blade Milner on 12-11-2024 Potassium (Unsp spec) [Mass/Vol] 4.0 mmol/L 3.3-5.1 [facility] RBC Auto (Bld) [#/Vol]Ordere d By: Blade Mliner on 12-11-2024 RBC (Bld) [#/Vol] 4.72 10*6/uL 4.6-6.2 [facility] Serum creatinine measurement (mass/volume)Ordered By: Blade Milner on 12-11-2024 Creatinine [Mass/Vol] 1.00 mg/dL 0.70-1.20 [facility] Serum globulin measurementOr dered By: Blade Milner on 12-11-2024 Globulin (S) [Mass/Vol] 2.0 g/dL Low 2.2-4.2 [facility] Serum glucose measurement (m ass/volume)Ordered By: Blade Milner on 12-11-2024 Glucose [Mass/Vol] 92 mg/dL 70-99 [facility] Serum or plasma alanine oropeza otransferase (ALT) measurementOrdered By: Blade Milner on 12-11-2024 ALT [Catalytic activity/Vol] 12 U/L <47 [facility] Serum or plasma albumin giovanny urement (mass/volume)Ordered By: Blade Milner on 12-11-2024 Albumin [Mass/Vol] 4.1 g/dL 3.4-4.8 [facility] Serum or plasma albumin/glob ulin mass ratioOrdered By: Blade Milner on 12-11-2024 Albumin/Globulin [Mass ratio] 2.0 {ratio} 0.9-2.4 [facility] Serum or plasma alkaline stacy sphatase measurementOrdered By: Blade Milner on 12-11-2024 ALP [Catalytic activity/Vol] 55 U/L 40-129 [facility] Serum or plasma calcium giovanny urement (mass/volume)Ordered By: Blade Milner on 12-11-2024 Calcium [Mass/Vol] 9.8 mg/dL 7.6-11.0 [facility] Serum or plasma ferritin blake surement (mass/volume)Ordered By: Blade Milner on 12-11-2024 Ferritin [Mass/Vol] 83 ng/mL 37-417 [facility] Serum or plasma urea nitroge n measurement (mass/volume)Ordered By: Blade Milner on 12-11-2024 Urea nitrogen [Mass/Vol] 18 mg/dL 4-19 [facility] Sodium levelOrdered By: Stalin Milner on 12-11-2024 Sodium [Moles/Vol] 139 mmol/L 133-145 [facility] TSH DL <= 0.005 mIU/L QnOrde red By: Blade Milner on 12-11-2024 Thyroid Stimulating Hormone (TSH) 7.310 uIU/mL High 0.300-4.200 [facility] TSH Qn 7.310 uIU/mL High 0.300-4.200 [facility] ThyroxineOrdered By: Blade nolan on 12-11-2024 T4 [Mass/Vol] 7.2 ug/dL 4.5-12.1 [facility] Total proteinOrdered By: Nabor Milner on 12-11-2024 Protein [Mass/Vol] 6.2 g/dL 5.9-8.4 [facility] White blood cell (WBC) count Ordered By: Blade Milner on 12-11-2024 WBC (Bld) [#/Vol] 4.4 10*3/uL 4.4-11.0 [facility] Absolute neutrophil countOrd ered By: Jenn Perez on 12-07-2024 Neutrophils (Bld) [#/Vol] 2.6 10*3/uL 2.0-7.7 [facility] Addendum DocumentOrdered By: Jenn Perez on 12-07-2024 Serum Immunofixation Comments Comment . [facility] Comment on above: Protein electrophore sis scan will follow via computer,mail, or lean leader delivery. Albumin Elph [Mass/Vol]Order ed By: Jenn Perez on 12-07-2024 Albumin [Mass/Vol] 3.5 g/dL 2.9-4.4 [facility] Alpha 1 globulin Elph [Mass/ Vol]Ordered By: Jenn Perez on 12-07-2024 Levuv-6-Exrukjfdo (ELINA) 0.2 g/dL 0.0-0.4 [facility] Lzngu-7-Ccfvwjkuk (ELINA) 0.9 g/dL 0.4-1.0 [facility] Anion gap in Serum or Plasma Ordered By: Jenn Perez on 12-07-2024 Anion gap [Moles/Vol] 12 mmol/L 5-15 [facility] BUN/creatinine ratioOrdered By: Jenn Perez on 12-07-2024 Urea nitrogen/Creatinine [Mass ratio] 18.0 mg/mg 10-20 [facility] Basophil percentageOrdered B y: Jenn Perez on 12-07-2024 Basophils/100 WBC (Bld) 1.1 % High 0-1 [facility] Beta globulin Elph [Mass/Vol ]Ordered By: Jenn Perez on 12-07-2024 Beta-Globulins (ELINA) 0.9 g/dL 0.7-1.3 [facility] Bilirubin, totalOrdered By: Jenn Perez on 12-07-2024 Bilirubin [Mass/Vol] 0.23 mg/dL 0.00-1.30 [facility] CBC W/Diff, Automatedon 03-1 3-2025 Absolute Lymph 0.48 X10 3/uL Low 0.83-4.51 [facility] Comment on above: Performed By: #### L 100.0100, L500.4050 ####[facility] [address] [place], [address] Absolute Neut 2.6 X10 3/uL Normal 2.0-7.7 [facility] Comment on above: Performed By: #### L 100.0100, L500.4050 ####[facility] [address] [place], [address] Basophils/100 WBC (Bld) 1.1 % High 0-1 [facility] Comment on above: Performed By: #### L 100.0100, L500.4050 ####[facility] [address] [place], [address] Eosinophils/100 WBC (Bld) 3.0 % Normal 0-5 [facility] Comment on above: Performed By: #### L 100.0100, L500.4050 ####[facility] [address] [place], [address] Erythrocyte distribution width (RBC) [Ratio] 14.9 % High 11.6-14.6 [facility] Comment on above: Performed By: #### L 100.0100, L500.4050 ####[facility] [address] [place], [address] Hematocrit (Bld) [Volume fraction] 39.2 % Low 40-54 [facility] Comment on above: Performed By: #### L 100.0100, L500.4050 ####[facility] [address] [place], [address] Hemoglobin (Bld) [Mass/Vol] 12.7 g/dL Low 13.0-16.5 [facility] Comment on above: Performed By: #### L 100.0100, L500.4050 ####[facility] [address] [place], [address] IG% 0.300 Normal 0.0-0.9 [facility] Comment on above: Result Comment: IG% - Immature Granulocytes (promyelocytes, myelocytes andmetamyelocytes) > 1% indicates that a LEFT SHIFT is Present. Performed By: #### L 100.0100, L500.4050 ####[facility] [address] [place], [address] Lymphocytes/100 WBC (Bld) 13.2 % Low 19-41 [facility] Comment on above: Performed By: #### L 100.0100, L500.4050 ####[facility] [address] [place], [address] MCH (RBC) [Entitic mass] 28.7 pg Normal 27.0-32.0 [facility] Comment on above: Performed By: #### L 100.0100, L500.4050 ####[facility] [address] [place], [address] MCHC (RBC) [Mass/Vol] 32.4 g/dL Normal 32-36 [facility] Comment on above: Performed By: #### L 100.0100, L500.4050 ####[facility] [address] [place], [address] MCV (RBC) [Entitic vol] 88.5 fL Normal 80-94 [facility] Comment on above: Performed By: #### L 100.0100, L500.4050 ####[facility] [address] [place], [address] Monocytes/100 WBC (Bld) 11.3 % High 0-10 [facility] Comment on above: Performed By: #### L 100.0100, L500.4050 ####[facility] [address] [place], [address] Neutrophils/100 WBC (Bld) 71.1 % High 47-70 [facility] Comment on above: Performed By: #### L 100.0100, L500.4050 ####[facility] [address] [place], [address] Nucleated RBC (Bld) [#/Vol] 0 10*3/uL Normal 0-5 [facility] Comment on above: Performed By: #### L 100.0100, L500.4050 ####[facility] [address] [place], [address] Platelet mean volume (Bld) [Entitic vol] 10.4 fL Normal 6.2-12.0 [facility] Comment on above: Performed By: #### L 100.0100, L500.4050 ####[facility] [address] [place], [address] Platelets (Bld) [#/Vol] 168 10*3/uL Normal 150-450 [facility] Comment on above: Performed By: #### L 100.0100, L500.4050 ####[facility] [address] [place], [address] RBC (Bld) [#/Vol] 4.43 10*6/uL Low 4.6-6.2 [facility] Comment on above: Performed By: #### L 100.0100, L500.4050 ####[facility] [address] [place], [address] RDW SD 48.1 fl High 35.1-43.9 [facility] Comment on above: Performed By: #### L 100.0100, L500.4050 ####[facility] [address] [place], [address] WBC (Bld) [#/Vol] 3.6 10*3/uL Low 4.4-11.0 [facility] Comment on above: Performed By: #### L 100.0100, L500.4050 ####[facility] [address] [place], [address] Absolute Neut Normal 2.0-7.7 [facility] Comment on above: Result Comment: DUPL ICATE TESTS TO TX PLAN Performed By: #### L 500.4050, L3100.3425, L3130.0010, L100.0100 ####[facility] [address] [place], [address] HCT Normal 40-54 [facility] Comment on above: Result Comment: DUPL ICATE TESTS TO TX PLAN Performed By: #### L 500.4050, L3100.3425, L3130.0010, L100.0100 ####[facility] [address] [place], [address] HGB Normal 13.0-16.5 [facility] Comment on above: Result Comment: DUPL ICATE TESTS TO TX PLAN Performed By: #### L 500.4050, L3100.3425, L3130.0010, L100.0100 ####[facility] [address] [place], [address] MCH Normal 27.0-32.0 [facility] Comment on above: Result Comment: DUPL ICATE TESTS TO TX PLAN Performed By: #### L 500.4050, L3100.3425, L3130.0010, L100.0100 ####[facility] [address] [place], [address] MCHC Normal 32-36 [facility] Comment on above: Result Comment: DUPL ICATE TESTS TO TX PLAN Performed By: #### L 500.4050, L3100.3425, L3130.0010, L100.0100 ####[facility] [address] [place], [address] MCV Normal 80-94 [facility] Comment on above: Result Comment: DUPL ICATE TESTS TO TX PLAN Performed By: #### L 500.4050, L3100.3425, L3130.0010, L100.0100 ####[facility] [address] [place], [address] NEUT% Normal 47-70 [facility] Comment on above: Result Comment: DUPL ICATE TESTS TO TX PLAN Performed By: #### L 500.4050, L3100.3425, L3130.0010, L100.0100 ####[facility] [address] [place], [address] PLT Normal 150-450 [facility] Comment on above: Result Comment: DUPL ICATE TESTS TO TX PLAN Performed By: #### L 500.4050, L3100.3425, L3130.0010, L100.0100 ####[facility] [address] [place], [address] RBC Normal 4.6-6.2 [facility] Comment on above: Result Comment: DUPL ICATE TESTS TO TX PLAN Performed By: #### L 500.4050, L3100.3425, L3130.0010, L100.0100 ####[facility] [address] [place], [address] RDW CV Normal 11.6-14.6 [facility] Comment on above: Result Comment: DUPL ICATE TESTS TO TX PLAN Performed By: #### L 500.4050, L3100.3425, L3130.0010, L100.0100 ####[facility] [address] [place], [address] RDW SD Normal 35.1-43.9 [facility] Comment on above: Result Comment: DUPL ICATE TESTS TO TX PLAN Performed By: #### L 500.4050, L3100.3425, L3130.0010, L100.0100 ####[facility] [address] [place], [address] WBC Normal 4.4-11.0 [facility] Comment on above: Result Comment: DUPL ICATE TESTS TO TX PLAN Performed By: #### L 500.4050, L3100.3425, L3130.0010, L100.0100 ####[facility] [address] [place], [address] Calculated total iron bindin g capacityOrdered By: Jenn Perez on 12-07-2024 Total Iron Binding Capacity 265 ug/dL 250-450 [facility] Carbon dioxide, total [Moles /volume] in Central venous bloodOrdered By: Jenn Perez on 12-07-2024 CO2 [Moles/Vol] 25.8 mmol/L 21.0-32.0 [facility] Chloride assayOrdered By: Lorene Perez on 12-07-2024 Chloride [Moles/Vol] 101 mmol/L 98-108 [facility] Comprehensive Metabolic Prof ilon 12-07-2024 Albumin [Mass/Vol] 4.0 g/dL Normal 3.4-4.8 [facility] Comment on above: Performed By: #### L 100.0100, L500.4050 ####[facility] [address] [place], [address] Albumin/Globulin [Mass ratio] 2.0 {ratio} Normal 0.9-2.4 [facility] Comment on above: Performed By: #### L 100.0100, L500.4050 ####[facility] [address] [place], [address] ALK PHOS 57 U/L Normal 40-129 [facility] Comment on above: Performed By: #### L 100.0100, L500.4050 ####[facility] [address] [place], [address] ALT [Catalytic activity/Vol] 10 U/L Normal <=46 [facility] Comment on above: Performed By: #### L 100.0100, L500.4050 ####[facility] [address] [place], [address] AST [Catalytic activity/Vol] 16 U/L Normal <=37 [facility] Comment on above: Performed By: #### L 100.0100, L500.4050 ####[facility] [address] [place], [address] Bilirubin [Mass/Vol] 0.23 mg/dL Normal 0.00-1.30 [facility] Comment on above: Performed By: #### L 100.0100, L500.4050 ####[facility] [address] [place], [address] BUN/CRE 18.0 RATIO Normal 10-20 [facility] Comment on above: Performed By: #### L 100.0100, L500.4050 ####[facility] [address] [place], [address] Calcium [Mass/Vol] 9.5 mg/dL Normal 7.6-11.0 [facility] Comment on above: Performed By: #### L 100.0100, L500.4050 ####[facility] [address] [place], [address] Chloride [Moles/Vol] 101 mmol/L Normal 98-108 [facility] Comment on above: Performed By: #### L 100.0100, L500.4050 ####[facility] [address] [place], [address] CO2 [Moles/Vol] 25.8 mmol/L Normal 21.0-32.0 [facility] Comment on above: Performed By: #### L 100.0100, L500.4050 ####[facility] [address] [place], [address] Creatinine [Mass/Vol] 1.08 mg/dL Normal 0.70-1.20 [facility] [facility] Comment on above: Performed By: #### L 100.0100, L500.4050 ####[facility] [address] [place], [address] ECRCL 66.93 ml/min Normal 50-250 [facility] Comment on above: Performed By: #### L 100.0100, L500.4050 ####[facility] [address] [place], [address] GAP 12 Normal 5-15 [facility] Comment on above: Performed By: #### L 100.0100, L500.4050 ####[facility] [address] [place], [address] GFR/1.73 sq M.predicted among non-blacks MDRD (S/P/Bld) [Vol rate/Area] 75 mL/min/{1.73_m2} Normal >60 [facility] Comment on above: Result Comment: mL/m in/1.73m2 CKD-EPI Creatinine Equation (2020) Performed By: #### L 100.0100, L500.4050 ####[facility] [address] [place], [address] Globulin (S) [Mass/Vol] 2.0 g/dL Low 2.2-4.2 [facility] Comment on above: Performed By: #### L 100.0100, L500.4050 ####[facility] [address] [place], [address] Glucose [Mass/Vol] 132 mg/dL High 70-99 [facility] Comment on above: Performed By: #### L 100.0100, L500.4050 ####[facility] [address] [place], [address] Potassium [Moles/Vol] 4.2 mmol/L Normal 3.3-5.1 [facility] Comment on above: Performed By: #### L 100.0100, L500.4050 ####[facility] [address] [place], [address] Sodium [Moles/Vol] 139 mmol/L Normal 133-145 [facility] Comment on above: Performed By: #### L 100.0100, L500.4050 ####[facility] [address] [place], [address] T PROT 6.0 g/dL Normal 5.9-8.4 [facility] Comment on above: Performed By: #### L 100.0100, L500.4050 ####[facility] [address] [place], [address] Urea nitrogen [Mass/Vol] 19 mg/dL Normal 4-19 [facility] Comment on above: Performed By: #### L 100.0100, L500.4050 ####[facility] [address] [place], [address] ALB Normal 3.4-4.8 [facility] Comment on above: Result Comment: DUPL ICATE TESTS TO TX PLAN Performed By: #### L 500.4050, L3100.3425, L3130.0010, L100.0100 ####[facility] [address] [place], [address] ALK PHOS Normal 40-129 [facility] Comment on above: Result Comment: DUPL ICATE TESTS TO TX PLAN Performed By: #### L 500.4050, L3100.3425, L3130.0010, L100.0100 ####[facility] [address] [place], [address] ALT Normal <=46 [facility] Comment on above: Result Comment: DUPL ICATE TESTS TO TX PLAN Performed By: #### L 500.4050, L3100.3425, L3130.0010, L100.0100 ####[facility] [address] [place], [address] AST Normal <=37 [facility] Comment on above: Result Comment: DUPL ICATE TESTS TO TX PLAN Performed By: #### L 500.4050, L3100.3425, L3130.0010, L100.0100 ####[facility] [address] [place], [address] BUN Normal 4-19 [facility] Comment on above: Result Comment: DUPL ICATE TESTS TO TX PLAN Performed By: #### L 500.4050, L3100.3425, L3130.0010, L100.0100 ####[facility] [address] [place], [address] BUN/CRE Normal 10-20 [facility] Comment on above: Result Comment: DUPL ICATE TESTS TO TX PLAN Performed By: #### L 500.4050, L3100.3425, L3130.0010, L100.0100 ####[facility] [address] [place], [address] Calcium Normal 7.6-11.0 [facility] Comment on above: Result Comment: DUPL ICATE TESTS TO TX PLAN Performed By: #### L 500.4050, L3100.3425, L3130.0010, L100.0100 ####[facility] [address] [place], [address] CL Normal 98-108 [facility] Comment on above: Result Comment: DUPL ICATE TESTS TO TX PLAN Performed By: #### L 500.4050, L3100.3425, L3130.0010, L100.0100 ####[facility] [address] [place], [address] CO2 Normal 21.0-32.0 [facility] Comment on above: Result Comment: DUPL ICATE TESTS TO TX PLAN Performed By: #### L 500.4050, L3100.3425, L3130.0010, L100.0100 ####[facility] [address] [place], [address] CREAT,SERUM Normal 0.70-1.20 [facility] Comment on above: Result Comment: DUPL ICATE TESTS TO TX PLAN Performed By: #### L 500.4050, L3100.3425, L3130.0010, L100.0100 ####[facility] [address] [place], [address] eGFR Normal >60 [facility] Comment on above: Result Comment: DUPL ICATE TESTS TO TX PLAN Performed By: #### L 500.4050, L3100.3425, L3130.0010, L100.0100 ####[facility] [address] [place], [address] GAP Normal 5-15 [facility] Comment on above: Result Comment: DUPL ICATE TESTS TO TX PLAN Performed By: #### L 500.4050, L3100.3425, L3130.0010, L100.0100 ####[facility] [address] [place], [address] GLU Normal 70-99 [facility] Comment on above: Result Comment: DUPL ICATE TESTS TO TX PLAN Performed By: #### L 500.4050, L3100.3425, L3130.0010, L100.0100 ####[facility] [address] [place], [address] Potassium Normal 3.3-5.1 [facility] Comment on above: Result Comment: DUPL ICATE TESTS TO TX PLAN Performed By: #### L 500.4050, L3100.3425, L3130.0010, L100.0100 ####[facility] [address] [place], [address] T BILI Normal 0.00-1.30 [facility] Comment on above: Result Comment: DUPL ICATE TESTS TO TX PLAN Performed By: #### L 500.4050, L3100.3425, L3130.0010, L100.0100 ####[facility] [address] [place], [address] T PROT Normal 5.9-8.4 [facility] Comment on above: Result Comment: DUPL ICATE TESTS TO TX PLAN Performed By: #### L 500.4050, L3100.3425, L3130.0010, L100.0100 ####[facility] [address] [place], [address] Comprehensive Metabolic Profil Normal 133-145 [facility] Comment on above: Result Comment: DUPL ICATE TESTS TO TX PLAN Performed By: #### L 500.4050, L3100.3425, L3130.0010, L100.0100 ####[facility] [address] [place], [address] Eosinophil percentageOrdered By: [facility] Chris on 12-07-2024 Eosinophils/100 WBC (Bld) 3.0 % 0-5 [facility] Erythrocyte distribution wid th ratioOrdered By: [facility]24 Erythrocyte distribution width (RBC) [Ratio] 14.9 % High 11.6-14.6 [facility] Erythrocyte distribution wid th standard deviationOrdered By: [facility] Chris on 12-07-2024 Erythrocyte distribution width (RBC) [Entitic vol] 48.1 fL High 35.1-43.9 [facility] Estimation of creatinine gavin aranceOrdered By: [facility] Chris on 12-07-2024 Estimated Creatinine Clearance Calc 66.93 ml/min 50-250 [facility] Ferritinon 12-07-2024 Ferritin [Mass/Vol] 82 ng/mL Normal 37-417 [facility] Comment on above: Order Comment: PLEAS E ADD TO BLOOD IN THE LAB. THANK YOU!! Performed By: #### L 503.6020, L503.6550 ####[facility] [address] [place], [address] GFR/1.73 sq M.predicted jesus g non-blacks MDRD (S/P/Bld) [Vol rate/Area]Ordered By: Jenn Perez on 12-07-2024 Estimated GFR (MDRD) Non-Af Amer 75 >60 [facility] Comment on above: mL/min/1.73m2 CKD-EP I Creatinine Equation (2020) Gamma globulin Elph [Mass/Vo l]Ordered By: Jenn Perez on 12-07-2024 Gamma Globulins (ELINA) 0.4 g/dL 0.4-1.8 [facility] Hematocrit Auto (Bld) [Volum e fraction]Ordered By: Jenn Perez on 12-07-2024 Hematocrit (Bld) [Volume fraction] 39.2 % Low 40-54 [facility] Hemoglobin measurementOrdere d By: Jenn Perez on 12-07-2024 Hemoglobin (Bld) [Mass/Vol] 12.7 g/dL Low 13.0-16.5 [facility] IgA [Mass/Vol]Ordered By: Lorene Perez on 12-07-2024 Immunoglobulin A 21 mg/dL Low 61-437 [facility] Comment on above: Result confirmed on concentration. IgG [Mass/Vol]Ordered By: Lorene Perez on 12-07-2024 Immunoglobulin G 441 mg/dL Low 603-1613 [facility] Immature granulocytes/100 WB C Auto (Bld)Ordered By: Jenn Perez on 12-07-2024 Immature granulocytes/100 WBC (Bld) 0.300 % 0.0-0.9 [facility] Comment on above: IG% - Immature Granu locytes (promyelocytes, myelocytes and metamyelocytes) > 1% indicates that a LEFT SHIFT is Present. Immunoglobulin M measurement Ordered By: Jenn Perez on 12-07-2024 Immunoglobulin M 15 mg/dL Low 20-172 [facility] Comment on above: Result confirmed on concentration. Immunoglobulin light chains. kappa [Mass/Vol]Ordered By: Jenn Perez on 12-07-2024 Free [place] Light Chains, Quant 5.7 mg/L 3.3-19.4 [facility] Immunoglobulin light chains. kappa/Immunoglobulin light chains.lambda (S) [Mass ratio]Ordered By: Jenn Perez on 12-07-2024 Free [place]/Lambda Light Chain Ratio 2.11 High 0.26-1.65 [facility] Comment on above: Performed at: [address] [id number] Director: Micky Arreola PhD, Phone: [phone] Interpretation IEP [Interp]O rdered By: Jenn Perez on 12-07-2024 Immunofixation Screen Comment High . [facility] Comment on above: Immunofixation shows IgG monoclonal protein with kappalight chain specificity. PLEASE NOTE: Samples from patients receiving DARZALEX(R)(daratumumab) or SARCLISA(R)(isatuximab-irfc) treatmentcan appear as an IgG kappa and mask a complete response(CR). If this patient is receiving these therapies, thisIFE assay interference can be removed by ordering testnumber [id number], Daratumumab-Specific,Serum or [id number], Isatuximab-Specific,Serum and submitting a new sample for testing or bycalling the lab to add this test to the current sample. Iron (Unsp spec) [Mass/Mass] Ordered By: Jenn Perez on 12-07-2024 Iron [Mass/Vol] 38 ug/dL Low 65-175 [facility] Iron measurement (mass/mass) Ordered By: Jenn Perez on 12-07-2024 Iron (Unsp spec) [Mass/Mass] 38 ug/dL Low 65-175 [facility] Iron saturation [Mass fracti on]Ordered By: Jenn Perez on 12-07-2024 Iron Saturation 14.0 % 9-55 [facility] Iron+Iron Binding Capacityon 12-07-2024 Iron [Mass/Vol] 38 ug/dL Low 65-175 [facility] Comment on above: Order Comment: PLEAS E ADD TO BLOOD IN THE LAB. THANK YOU!! Performed By: #### L 503.6086, L503.6550 ####[facility] [address] [place], [address] IRON SATURATION 14.0 Normal 9-55 [facility] Comment on above: Order Comment: PLEAS E ADD TO BLOOD IN THE LAB. THANK YOU!! Performed By: #### L 503.6030, L503.6550 ####[facility] [address] [place], [address] TIBC 265 ug/dL Normal 250-450 [facility] Comment on above: Order Comment: PLEAS E ADD TO BLOOD IN THE LAB. THANK YOU!! Performed By: #### L 503.6030, L503.6550 ####[facility] [address] [place], [address] UIBC 227 ug/dL Low 228-428 [facility] Comment on above: Order Comment: PLEAS E ADD TO BLOOD IN THE LAB. THANK YOU!! Performed By: #### L 503.6030, L503.6550 ####[facility] [address] [place], [address] Laboratory - Chemistry and C hemistry - challengeOrdered By: Jenn Perez on 12-07-2024 AST [Catalytic activity/Vol] 16 U/L <38 [facility] Lambda free light chain giovanny urementOrdered By: Jenn Perez on 12-07-2024 Free Lambda Light Chains, Quant 2.7 mg/L Low 5.7-26.3 [facility] Lymphocytes Auto (Unsp spec) [#/Vol]Ordered By: Jenn Perez on 12-07-2024 Lymphocytes (Bld) [#/Vol] 0.48 10*3/uL Low 0.83-4.51 [facility] Lymphocytes/100 WBC Auto (Un sp spec)Ordered By: Jenn Perez on 12-07-2024 Lymphocytes/100 WBC (Bld) 13.2 % Low 19-41 [facility] MCV (mean corpuscular volume ) determinationOrdered By: Jenn Perez on 12-07-2024 MCV (RBC) [Entitic vol] 88.5 fL 80-94 [facility] Mean corpuscular hemoglobin (MCH) determinationOrdered By: Jenn Perez on 12-07-2024 MCH (RBC) [Entitic mass] 28.7 pg 27.0-32.0 [facility] Mean corpuscular hemoglobin concentration (MCHC) determinationOrdered By: Jenn Perez on 12-07-2024 MCHC (RBC) [Mass/Vol] 32.4 g/dL 32-36 [facility] Mean platelet volume determi nationOrdered By: Jenn Perez on 12-07-2024 Platelet mean volume (Bld) [Entitic vol] 10.4 fL 6.2-12.0 [facility] Monocyte percentageOrdered B y: Jenn Perez on 12-07-2024 Monocytes/100 WBC (Bld) 11.3 % High 0-10 [facility] Neutrophil percentageOrdered By: Jenn Perez on 12-07-2024 Neutrophils/100 WBC (Bld) 71.1 % High 47-70 [facility] No Panel InformationOrdered By: Jenn Perez on 12-07-2024 Unsaturated Iron Binding Capacity 227 ug/dL Low 228-428 [facility] Nucleated red blood cell per centageOrdered By: Jenn Perez on 12-07-2024 Nucleated RBC/100 WBC (Bld) [Ratio] 0 % 0-5 [facility] Oncology Visit Reporton 11-25 Oncology Visit Report Normal [facility] Platelet countOrdered By: Lorene Perez on 12-07-2024 Platelets (Bld) [#/Vol] 168 10*3/uL 150-450 [facility] Potassium (Unsp spec) [Mass/ Vol]Ordered By: Jenn Perez on 12-07-2024 Potassium [Moles/Vol] 4.2 mmol/L 3.3-5.1 [facility] Protein Fractions Immunofixa tion Johnny [Interp]Ordered By: Jenn Perez on 12-07-2024 M-Raúl (ELINA) Comment: g/dL Not Observed [facility] Comment on above: Due to the small bouchra ntity of monoclonal protein, unable toquantitate the M-spike. RBC Auto (Bld) [#/Vol]Ordere d By: Jenn Perez on 12-07-2024 RBC (Bld) [#/Vol] 4.43 10*6/uL Low 4.6-6.2 [facility] Serum albumin/globulin ratio Ordered By: Jenn Perez on 12-07-2024 Albumin/Globulin (ELINA) 1.5 0.7-1.7 [facility] Serum creatinine measurement (mass/volume)Ordered By: Jenn Perez on 12-07-2024 Creatinine [Mass/Vol] 1.08 mg/dL 0.70-1.20 [facility] Serum globulin measurementOr dered By: Jenn Perez on 12-07-2024 Globulin (S) [Mass/Vol] 2.0 g/dL Low 2.2-4.2 [facility] Serum globulin measurement ( mass/volume)Ordered By: Jenn Perez on 12-07-2024 Globulin (S) [Mass/Vol] 2.4 g/dL 2.2-3.9 [facility] Serum glucose measurement (m ass/volume)Ordered By: Jenn Perez on 12-07-2024 Glucose [Mass/Vol] 132 mg/dL High 70-99 [facility] Serum or plasma alanine oropeza otransferase (ALT) measurementOrdered By: Jenn Perez on 12-07-2024 ALT [Catalytic activity/Vol] 10 U/L <47 [facility] Serum or plasma albumin giovanny urement (mass/volume)Ordered By: Jenn Perez on 12-07-2024 Albumin [Mass/Vol] 4.0 g/dL 3.4-4.8 [facility] Serum or plasma albumin/glob ulin mass ratioOrdered By: Jenn Perez 12-07-2024 Albumin/Globulin [Mass ratio] 2.0 {ratio} 0.9-2.4 [facility] Serum or plasma alkaline stacy sphatase measurementOrdered By: Jenn Perez on 12-07-2024 ALP [Catalytic activity/Vol] 57 U/L 40-129 [facility] Serum or plasma calcium giovanny urement (mass/volume)Ordered By: Jenn Perez on 12-07-2024 Calcium [Mass/Vol] 9.5 mg/dL 7.6-11.0 [facility] Serum or plasma ferritin blake surement (mass/volume)Ordered By: Jenn Chris on 12-07-2024 Ferritin [Mass/Vol] 82 ng/mL 37-417 [facility] Serum or plasma iron saturat ion measurement (mass fraction)Ordered By: Jenn Chris on 12-07-2024 Iron saturation [Mass fraction] 14.0 % 9-55 [facility] Serum or plasma protein giovanny urement (mass/volume)Ordered By: Jenn Chris on 12-07-2024 Protein [Mass/Vol] 5.9 g/dL Low 6.0-8.5 [facility] Serum or plasma urea nitroge n measurement (mass/volume)Ordered By: Jenn Chris on 12-07-2024 Urea nitrogen [Mass/Vol] 19 mg/dL 4-19 [facility] Sodium levelOrdered By: Georgina alan Chris on 12-07-2024 Sodium [Moles/Vol] 139 mmol/L 133-145 [facility] Total proteinOrdered By: Lam gates Chris on 12-07-2024 Protein [Mass/Vol] 6.0 g/dL 5.9-8.4 [facility] White blood cell (WBC) count Ordered By: Jenn Chris on 12-07-2024 WBC (Bld) [#/Vol] 3.6 10*3/uL Low 4.4-11.0 [facility] CNNURSEon 11-28-2024 CNNURSE Nurse Visit (PHILLIP) ARMAND BARRON ([id number]) 1955 M Date Time Provider Department 11/28/24 3:00 PM NURSE МАРИНА FISHER During your visit today, we recorded the following information about you: Niahrika Harrison RN 11/28/2024 2:49 PM Signed Patient in for CIC teaching. Given [facility] CIC patient education sheet. Instructed on proper technique and s/s of infection, cath after trying to void, how to track. Verbalized understanding to all instruction. Patient able to cath self with nurse instruction/assistance . Used 16 mosotho coloplast speedicath soft catheter. Samples given. Quality Control Tester offered:Patient declines Niharika Harrison RN Allergies As of Date: 11/28/2024 (No Known Allergies) Date Reviewed: 11/28/2024 Reviewed by: Niharika Harrison RN - Fully Assessed Reason for Visit: Benign prostatic hyperplasia with urinary retention [Other] Primary Visit Diagnosis:Benign prostatic hyperplasia with urinary retention [N40.1, R33.8] Prescriptions as of 11/28/2024 - acetaminophen (TYLENOL) 500 mg tablet Take 1,000 mg by mouth every 6 hours as needed. - acyclovir (ZOVIRAX) 400 mg tablet Take 400 mg by mouth. - amLODIPine (NORVASC) 10 mg tablet Take 10 mg by mouth. - amoxicillin (AMOXIL) 500 mg capsule - baclofen 5 mg tablet - apixaban (ELIQUIS) 5 mg tab(s) Take 5 mg by mouth. - Ascorbic Acid 1,000 mg tablet Take 1,000 mg by mouth. - cefdinir (OMNICEF) 300 mg capsule - dexAMETHasone (DECADRON) 4 mg tablet Take 4 mg by mouth every 4 weeks. - doxycycline (VIBRA-TABS) 100 mg tablet - ferrous sulfate 325 mg (65 mg iron) tablet Take 325 mg by mouth. - gabapentin (NEURONTIN) 100 mg capsule Take 100 mg by mouth. - levothyroxine (SYNTHROID) 88 mcg tablet Take 88 mcg by mouth. - magnesium hydroxide (MOM) 400 mg/5 mL suspension Take 30 mL by mouth. - metoprolol tartrate, short acting, (LOPRESSOR) 50 mg tablet Take 50 mg by mouth. - apixaban (ELIQUIS) 5 mg tab(s) Take by mouth two times a day. Facility-Administered Medications as of 11/28/2024 - lidocaine urojet 2 % 6 mL topical gel (GLYDO) Problem List As Of Date 11/28/2024 Noted Resolved Neurogenic bladder [N31.9] 11/28/2024 Benign prostatic hyperplasia with urinary reten*11/28/2024 Encounter Status:Closed by NIHARIKA HARRISON on 11/28/24 [facility] CNOVon 11-28-2024 CNOV Office Visit (AKURFL ) BEATRICEARMAND ([id number]) 1955 M Date Time Provider Department 11/28/24 2:30 PM RIC SOUZA During your visit today, we recorded the following information about you: Pulse Height 71/minute 1.651 m Ric Souza MD 11/30/2024 2:42 PM Signed ESTABLISHED PATIENT OFFICE VISIT patient declined film sound coordinator PATIENT INFO: Armand Barron 69 year old HPI 11/28/2024 CC: cysto For cystoscopy today and just 1 mild lateral lobe BPH somewhat coapting in the middle but not long prostate at all and bladder entered and not significant trabeculation but edema posterior wall consistent with having a long-term catheter Ventral erosion of the meatus to the shaft Presents to learn intermittent catheterization--able to do---do 4x/day With his daughter today Ultrasound showed no concerning issues Follow-up 12 months with renal ultrasound at the latest and earlier if problems Past Urology Hx: 11/10/2024 Pt CC: vanegas history per oncology note as below-- a lot of spine and lower extremity neurological issues and is following surgery infections Presents with his sister and he ambulates and able to support himself with walker Vanegas catheter over the last 2 years and last time they tried voiding trial failed At the care facility Never saw urology Has been seeing outside institutions On Eliquis They will do renal ultrasound and follow-up for cystoscopy and see nurse to learn intermittent catheterization On exam some ventral erosion of the meatus discussed He has good hand dexterity September 06, 2024-seen by oncology- Armand Barron is a 69 y.o. male who presents to the Plasma cell dyscrasia clinic today at the [facility] for 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 Please allow me to review the patient's oncological history to date: worsening pain over the course of a year. He presented to the hospital on the 11/10/2022 with progressive weakness and loss of sensation in bilateral legs. MRI of spine showed compression fracture at T2 and T7 levels as well as the presence of a substantial epidural tumor at T7 with cord compression. There were also multiple bone lesions throughout the spine and pelvis. CT chest abdomen and pelvis on 11/10/2022: Multiple lytic lesions throughout the skeleton, mildly enlarged hilar and mediastinal lymph nodes but no solid tumor or masses. 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 Radiation Oncology was consulted and he underwent MOPP radiation to that area. No bone marrow biopsy done. Patient had been doing therapy at [facility] in [place] and staff noted that his incision began looking erythematous, with copious drainage. He was sent back to [facility] for evaluation by neurosurgery. Went to IR on 12/02 for drain placement and fluid sent for culture, no growth. He remained clinically very stable. Patient discharged to return to [facility] in [place] The patient received a course of 20 Dan delivered in 5 fractions to the thoracic spine encompassing T2-T7 (T1-T8). He was started on DRD on 03/08/23. There was delays due to delayed wound healing. INTERVAL HISTORY: He was admitted in May for back wound infection and UTI. He had surgical revision of his wound. . He is getting daratumumab injections every 4 weeks. His last dose was on injection on 08/17. He has been off revlimid since March. He feels the weakness in his legs are getting better. He is now walking more. on eliquis. He still has a urinary catheter. He denies hematuria. He had a catheter replaced on Wednesday. Labs/Radiology/Procedu res: November 28, [id number] urethral stricture but ventral erosion of the meatus to shaft; lateral lobes hypertrophy mild just coapting in the midline and prostatic urethra is not long at all and bladder minimal trabeculation but posterior wall swelling is expected with chronic catheter November 10, 2024-renal ultrasound-no hydronephrosis; 5.8 cm left lower pole renal cyst Febrile 14 2022-CT with IV outside kskcqcmntcm-pknhiaoo-s eft renal cyst and Vanegas catheter in place and prostate gland normal size No results found for: CREAT No results found for: PSA No results found for: COLOR, CLARITY, UGLUC, UBILI, UKET, SPGR, UHB, UPH, UPROT, UROBILINOGEN, NITRITES, LEUKEST Review of Systems Constitutional: Negative. HENT: Negative. Eyes: Negative. Respiratory: Negative. Cardiovascular: Negative. Gastrointestinal: Negative. Endocrine: Negative. Genitourinary: See HPI Musculoskeletal: Negative. Skin: Negative. Allergic/Immunologic: Negative. Neurological: Negative. Hematological: Negative. Psychiatric/ (more content not included)... Normal [facility] L/S Spine Min 4 Viewson 10-29 L/S Spine Min 4 Views Normal [facility] Orthopedic Visit Reporton Orthopedic Visit Report Normal [facility] ELINA + Protein Elect, Serumon 11-14-2024 Albumin [Mass/Vol] 3.5 g/dL Normal 2.9-4.4 [facility] Comment on above: Order Comment: N Performed By: #### L 3100.3425, L3130.0010 ####[facility] [address] [facility] [address] Albumin/Globulin [Mass ratio] 1.7 {ratio} Normal 0.7-1.7 [facility] Comment on above: Order Comment: N Performed By: #### L 3100.3425, L3130.0010 ####[facility] [address] [place], [address] QCTDC-5-MAUZ 0.2 g/dL Normal 0.0-0.4 [facility] Comment on above: Order Comment: N Performed By: #### L 3100.3425, L3130.0010 ####[facility] [address] [place], [address] EROOE-8-EEPZ 0.8 g/dL Normal 0.4-1.0 [facility] Comment on above: Order Comment: N Performed By: #### L 3100.3425, L3130.0010 ####[facility] [address] [place], [address] BETA GLOBULIN 0.8 g/dL Normal 0.7-1.3 [facility] Comment on above: Order Comment: N Performed By: #### L 3100.3425, L3130.0010 ####[facility] [address] [place], [address] GAMMA GLOBULIN 0.3 g/dL Low 0.4-1.8 [facility] Comment on above: Order Comment: N Performed By: #### L 3100.3425, L3130.0010 ####[facility] [address] [place], [address] Globulin (S) [Mass/Vol] 2.1 g/dL Abnormal 2.2-3.9 [facility] Comment on above: Order Comment: N Performed By: #### L 3100.3425, L3130.0010 ####[facility] [address] [place], [address] ELINA RESULT,S Comment Abnormal . [facility] Comment on above: Order Comment: N Result Comment: Immu nofixation shows IgG monoclonal protein with kappalight chain specificity. PLEASE NOTE: Samples from patients receiving DARZALEX(R)(daratumumab) or SARCLISA(R)(isatuximab-the medical center) treatmentcan appear as an IgG kappa and mask a complete response(CR). If this patient is receiving these therapies, thisIFE assay interference can be removed by ordering testnumber [id number]-Fljdpptnxsdpcp, Daratumumab-Specific,Serum or [id number]-Ocefjftvgllskc, Isatuximab-Specific,Serum and submitting a new sample for testing or bycalling the lab to add this test to the current sample. Performed By: #### L 3100.3425, L3130.0010 ####[facility] [address] [place], [address] IMMUNOGLOB A QN 21 mg/dL Low 61-437 [facility] Comment on above: Order Comment: N Result Comment: Resu lt confirmed on concentration. Performed By: #### L 3100.3425, L3130.0010 ####[facility] [address] [place], [address] IMMUNOGLOB G QN 461 mg/dL Low 603-1613 [facility] Comment on above: Order Comment: N Performed By: #### L 3100.3425, L3130.0010 ####[facility] [address] [place], [address] IMMUNOGLOB M QN 14 mg/dL Low 20-172 [facility] Comment on above: Order Comment: N Result Comment: Resu lt confirmed on concentration. Performed By: #### L 3100.3425, L3130.0010 ####[facility] [address] [place], [address] M-Raúl 0.1 g/dL Abnormal Not Observed [facility] Comment on above: Order Comment: N Performed By: #### L 3100.3425, L3130.0010 ####[facility] [address] [place], [address] NOTE: Comment Normal . [facility] Comment on above: Order Comment: N Result Comment: Prot ein electrophoresis scan will follow via computer,mail, or lean leader delivery. Performed By: #### L 3100.3425, L3130.0010 ####[facility] [address] [place], [address] Protein [Mass/Vol] 5.6 g/dL Low 6.0-8.5 [facility] Comment on above: Order Comment: N Performed By: #### L 3100.3425, L3130.0010 ####[facility] [address] [place], [place], [address] [employer] Ch[employer]on 11-14-2024 FR KAPPA LT CHN 6.0 mg/L Normal 3.3-19.4 [facility] Comment on above: Performed By: #### L 3100.3425, L3130.0010 ####[facility] [address] [place], [place], [id number] FR LAMBDA LT CH 2.7 mg/L Abnormal 5.7-26.3 [facility] Comment on above: Performed By: #### L 3100.3425, L3130.0010 ####[facility] [address] [place], [place], [id number] KAPPA/LAMBDA % 2.22 Abnormal 0.26-1.65 [facility] Comment on above: Result Comment: Perf ormed at: - [facility] [address] [id number] Director: Micky Arreola PhD, Phone: [phone] Performed By: #### L 3103.3429, L3130.0010 ####[facility] [address] [place], [place], [id number] US Kidney - bilateral and Ur inary bladderon 11-12-2024 IMPRESSION: No hydronephrosis. 5.8 cm left inferior pole renal cyst. Ball Thread Machine Tender: [facility] Transcribe Date/Time: Nov 12 2024 6:24P Dictated by : MUSA GERARD MD This examination was interpreted and the report reviewed and electronically signed by: MUSA GERARD MD on Nov 12 2024 6:25PM [facility] DIVISION OF RADIOLOGY * * *Final Report* * * DATE OF EXAM: Nov 10 2024 3:02PM [facility] 1055 - US KIDNEY/BLADDER / PROCEDURE REASON: multiple diagnoses * * * * Physician Interpretation * * * * EXAMINATION: RENAL ULTRASOUND CLINICAL HISTORY: Benign prostatic hyperplasia with urinary retention. TECHNIQUE: Sonography of the kidneys and urinary bladder was performed. Images were obtained and stored in a permanent archive. MQ: UR_1 COMPARISON: None RESULT: Right Kidney: -Renal length: 10.6 cm -Parenchyma: Normal parenchymal echogenicity. Normal parenchymal thickness. -Collecting system: No hydronephrosis. -Calculus: No echogenic, shadowing calculus. -Lesion: None. Left Kidney: -Renal length: -Parenchyma: Normal parenchymal echogenicity. Normal parenchymal thickness. -Collecting system: No hydronephrosis. -Calculus: No echogenic, shadowing calculus. -Lesion: 5.5 x 5.2 x 5.8 cm inferior pole renal cyst. Bladder: Collapsed with a Vanegas catheter in place. DIVISION OF RADIOLOGY Provider, [facility] - 11/12/2024 * * *Final Report* * * DATE OF EXAM: Nov 10 2024 3:02PM U 1055 - US KIDNEY/BLADDER / PROCEDURE REASON: multiple diagnoses * * * * Physician Interpretation * * * * EXAMINATION: RENAL ULTRASOUND CLINICAL HISTORY: Benign prostatic hyperplasia with urinary retention. TECHNIQUE: Sonography of the kidneys and urinary bladder was performed. Images were obtained and stored in a permanent archive. MQ: UR_1 COMPARISON: None RESULT: Right Kidney: -Renal length: 10.6 cm -Parenchyma: Normal parenchymal echogenicity. Normal parenchymal thickness. -Collecting system: No hydronephrosis. -Calculus: No echogenic, shadowing calculus. -Lesion: None. Left Kidney: -Renal length: -Parenchyma: Normal parenchymal echogenicity. Normal parenchymal thickness. -Collecting system: No hydronephrosis. -Calculus: No echogenic, shadowing calculus. -Lesion: 5.5 x 5.2 x 5.8 cm inferior pole renal cyst. Bladder: Collapsed with a Vanegas catheter in place. IMPRESSION IMPRESSION: No hydronephrosis. 5.8 cm left inferior pole renal cyst. Ball Thread Machine Tender: [facility] Transcribe Date/Time: Nov 12 2024 6:24P Dictated by : MUSA GERARD MD This examination was interpreted and the report reviewed and electronically signed by: MUSA GERARD MD on Nov 12 2024 6:25PM [facility] US Kidney - bilateral and Ur inary bladderOrdered By: [facility] Provider on 11-12-2024 [facility] CNOVon 11-10-2024 CNOV Office Visit (AKURFL ) ARMAND BARRON ([id number]) 1955 M Date Time Provider Department 11/10/24 10:00 AM RIC SOUZA During your visit today, we recorded the following information about you: Pulse Height 72/minute 1.651 m Ric Souza MD 11/16/2024 10:16 AM Signed NEW PATIENT HISTORY AND PHYSICAL EXAM patient declined film sound coordinator PATIENT INFO: Armand Barron 69 year old HPI 11/10/2024 Pt CC: vanegas history per oncology note as below-- a lot of spine and lower extremity neurological issues and is following surgery infections Presents with his sister and he ambulates and able to support himself with walker Vanegas catheter over the last 2 years and last time they tried voiding trial failed At the care facility Never saw urology Has been seeing outside institutions On Eliquis They will do renal ultrasound and follow-up for cystoscopy and see nurse to learn intermittent catheterization On exam some ventral erosion of the meatus discussed He has good hand dexterity Past Uology History: September 06, 2024-seen by oncology- Armand Barron is a 69 y.o. male who presents to the Plasma cell dyscrasia clinic today at the [facility] for 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 Please allow me to review the patient's oncological history to date: worsening pain over the course of a year. He presented to the hospital on the 11/10/2022 with progressive weakness and loss of sensation in bilateral legs. MRI of spine showed compression fracture at T2 and T7 levels as well as the presence of a substantial epidural tumor at T7 with cord compression. There were also multiple bone lesions throughout the spine and pelvis. CT chest abdomen and pelvis on 11/10/2022: Multiple lytic lesions throughout the skeleton, mildly enlarged hilar and mediastinal lymph nodes but no solid tumor or masses. 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 Radiation Oncology was consulted and he underwent MOPP radiation to that area. No bone marrow biopsy done. Patient had been doing therapy at [facility] in [place] and staff noted that his incision began looking erythematous, with copious drainage. He was sent back to [facility] for evaluation by neurosurgery. Went to IR on 12/02 for drain placement and fluid sent for culture, no growth. He remained clinically very stable. Patient discharged to return to [facility] in [place] The patient received a course of 20 Dan delivered in 5 fractions to the thoracic spine encompassing T2-T7 (T1-T8). He was started on DRD on 03/08/23. There was delays due to delayed wound healing. INTERVAL HISTORY: He was admitted in May for back wound infection and UTI. He had surgical revision of his wound. . He is getting daratumumab injections every 4 weeks. His last dose was on injection on 08/17. He has been off revlimid since March. He feels the weakness in his legs are getting better. He is now walking more. on eliquis. He still has a urinary catheter. He denies hematuria. He had a catheter replaced on Wednesday. Labs/Radiology/Procedu res: Febrile 14 2022-CT with IV outside zrwglffrkic-hwpkxtvo-i eft renal cyst and Vanegas catheter in place and prostate gland normal size No results found for: CREAT No results found for: PSA No results found for: COLOR, CLARITY, UGLUC, UBILI, UKET, SPGR, UHB, UPH, UPROT, UROBILINOGEN, NITRITES, LEUKEST Review of Systems Constitutional: Negative. HENT: Negative. Eyes: Negative. Respiratory: Negative. Cardiovascular: Negative. Gastrointestinal: Negative. Endocrine: Negative. Genitourinary: See HPI Musculoskeletal: Negative. Skin: Negative. Allergic/Immunologic: Negative. Neurological: Negative. Hematological: Negative. I reviewed and confirmed ROS done by [facility] HISTORIES PAST MEDICAL HISTORY Diagnosis Date HTN (hypertension) No family history on file. SOCIAL HISTORY Social History Tobacco Use Smoking status: Never Smokeless tobacco: Never Substance Use Topics Alcohol use: Never Drug use: Never MEDICATIONS: acetaminophen (TYLENOL) 500 mg tablet Take 1,000 mg by mouth every 6 hours as needed. acyclovir (ZOVIRAX) 400 mg tablet Take 400 mg by mouth. amLODIPine (NORVASC) 10 mg tablet Take 10 mg by mouth. amoxicillin (AMOXIL) 500 mg capsule baclofen 5 mg tablet apixaban (ELIQUIS) 5 mg tab(s) Take 5 mg by mouth. Ascorbic Acid 1,000 mg tablet Take 1,000 mg by mouth. cefdinir (OMNICEF) 300 mg capsule dexAMETHasone (DECADRON) 4 mg tablet Take 4 mg by mouth every 4 weeks. doxycycline (VIBRA-TABS) 100 mg tablet ferrous sulfate 325 mg (65 mg iron) tablet Take 325 mg by mouth. gabapentin (more content not included)... Normal [facility] US KIDNEY/BLADDERon 11-10-19 US KIDNEY/BLADDER * * *Final Report* * * DATE OF EXAM: Nov 10 2024 3:02PM [facility] 1055 - US KIDNEY/BLADDER / PROCEDURE REASON: multiple diagnoses * * * * Physician Interpretation * * * * EXAMINATION: RENAL ULTRASOUND CLINICAL HISTORY: Benign prostatic hyperplasia with urinary retention. TECHNIQUE: Sonography of the kidneys and urinary bladder was performed. Images were obtained and stored in a permanent archive. MQ: UR_1 COMPARISON: None RESULT: Right Kidney: -Renal length: 10.6 cm -Parenchyma: Normal parenchymal echogenicity. Normal parenchymal thickness. -Collecting system: No hydronephrosis. -Calculus: No echogenic, shadowing calculus. -Lesion: None. Left Kidney: -Renal length: -Parenchyma: Normal parenchymal echogenicity. Normal parenchymal thickness. -Collecting system: No hydronephrosis. -Calculus: No echogenic, shadowing calculus. -Lesion: 5.5 x 5.2 x 5.8 cm inferior pole renal cyst. Bladder: Collapsed with a Vanegas catheter in place. IMPRESSION: No hydronephrosis. 5.8 cm left inferior pole renal cyst. Ball Thread Machine Tender: [facility] Transcribe Date/Time: Nov 12 2024 6:24P Dictated by : MUSA GERARD MD This examination was interpreted and the report reviewed and electronically signed by: MUSA GERARD MD on Nov 12 2024 6:25PM EST [id number] Normal [facility] US Kidney - bilateral and Ur inary bladderon 11-10-2024 Radiology Study observation (narrative) [facility] Addendum DocumentOrdered By: Zayda Hanson on 11-09-2024 Serum Immunofixation Comments Comment . [facility] Comment on above: Protein electrophore sis scan will follow via computer,mail, or lean leader delivery. Albumin Elph [Mass/Vol]Order ed By: Zayda Hanson on 11-09-2024 Albumin [Mass/Vol] 3.5 g/dL 2.9-4.4 [facility] Alpha 1 globulin Elph [Mass/ Vol]Ordered By: Zayda Hanson on 11-09-2024 Nrqwa-2-Bmjjczfgx (ELINA) 0.2 g/dL 0.0-0.4 [facility] Pxgnf-1-Ldowidrwq (ELINA) 0.8 g/dL 0.4-1.0 [facility] Beta globulin Elph [Mass/Vol ]Ordered By: Zayda Hanson on 11-09-2024 Beta-Globulins (ELINA) 0.8 g/dL 0.7-1.3 [facility] CBC W/Diff, Automatedon 10-28 Absolute Lymph 0.55 X10 3/uL Low 0.83-4.51 [facility] Comment on above: Performed By: #### L 100.0100, L500.4050 ####[facility] [address] [place], [address] Absolute Neut 2.7 X10 3/uL Normal 2.0-7.7 [facility] Comment on above: Performed By: #### L 100.0100, L500.4050 ####[facility] [address] [place], [address] Basophils/100 WBC (Bld) 0.8 % Normal 0-1 [facility] Comment on above: Performed By: #### L 100.0100, L500.4050 ####[facility] [address] [place], [address] Eosinophils/100 WBC (Bld) 5.3 % High 0-5 [facility] Comment on above: Performed By: #### L 100.0100, L500.4050 ####[facility] [address] [place], [address] Erythrocyte distribution width (RBC) [Ratio] 14.9 % High 11.6-14.6 [facility] Comment on above: Performed By: #### L 100.0100, L500.4050 ####[facility] [address] [place], [address] Hematocrit (Bld) [Volume fraction] 39.1 % Low 40-54 [facility] Comment on above: Performed By: #### L 100.0100, L500.4050 ####[facility] [address] [place], [address] Hemoglobin (Bld) [Mass/Vol] 12.5 g/dL Low 13.0-16.5 [facility] Comment on above: Performed By: #### L 100.0100, L500.4050 ####[facility] [address] [place], [address] IG% 0.500 Normal 0.0-0.9 [facility] Comment on above: Result Comment: IG% - Immature Granulocytes (promyelocytes, myelocytes andmetamyelocytes) > 1% indicates that a LEFT SHIFT is Present. Performed By: #### L 100.0100, L500.4050 ####[facility] [address] [place], [address] Lymphocytes/100 WBC (Bld) 13.8 % Low 19-41 [facility] Comment on above: Performed By: #### L 100.0100, L500.4050 ####[facility] [address] [place], [address] MCH (RBC) [Entitic mass] 28.5 pg Normal 27.0-32.0 [facility] Comment on above: Performed By: #### L 100.0100, L500.4050 ####[facility] [address] [place], [address] MCHC (RBC) [Mass/Vol] 32.0 g/dL Normal 32-36 [facility] Comment on above: Performed By: #### L 100.0100, L500.4050 ####[facility] [address] [place], [address] MCV (RBC) [Entitic vol] 89.3 fL Normal 80-94 [facility] Comment on above: Performed By: #### L 100.0100, L500.4050 ####[facility] [address] [place], [address] Monocytes/100 WBC (Bld) 12.5 % High 0-10 [facility] Comment on above: Performed By: #### L 100.0100, L500.4050 ####[facility] [address] [place], [address] Neutrophils/100 WBC (Bld) 67.1 % Normal 47-70 [facility] Comment on above: Performed By: #### L 100.0100, L500.4050 ####[facility] [address] [place], [address] Nucleated RBC (Bld) [#/Vol] 0 10*3/uL Normal 0-5 [facility] Comment on above: Performed By: #### L 100.0100, L500.4050 ####[facility] [address] [place], [address] Platelet mean volume (Bld) [Entitic vol] 10.5 fL Normal 6.2-12.0 [facility] Comment on above: Performed By: #### L 100.0100, L500.4050 ####[facility] [address] [place], [address] Platelets (Bld) [#/Vol] 156 10*3/uL Normal 150-450 [facility] Comment on above: Performed By: #### L 100.0100, L500.4050 ####[facility] [address] [place], [address] RBC (Bld) [#/Vol] 4.38 10*6/uL Low 4.6-6.2 [facility] Comment on above: Performed By: #### L 100.0100, L500.4050 ####[facility] [address] [place], [address] RDW SD 48.3 fl High 35.1-43.9 [facility] Comment on above: Performed By: #### L 100.0100, L500.4050 ####[facility] [address] [place], [address] WBC (Bld) [#/Vol] 4.0 10*3/uL Low 4.4-11.0 [facility] Comment on above: Performed By: #### L 100.0100, L500.4050 ####[facility] [address] [place], [address] Comprehensive Metabolic Prof inon 11-09-2024 Albumin [Mass/Vol] 3.3 g/dL Normal 3.2-5.0 [facility] Comment on above: Performed By: #### L 100.0100, L500.4050 ####[facility] [address] [place], [address] Albumin/Globulin [Mass ratio] 1.1 {ratio} Normal 0.9-2.4 [facility] Comment on above: Performed By: #### L 100.0100, L500.4050 ####[facility] [address] [place], [address] ALK P 60 U/L Normal 45-117 [facility] Comment on above: Performed By: #### L 100.0100, L500.4050 ####[facility] [address] [place], [address] ALT [Catalytic activity/Vol] 15 U/L Low 16-61 [facility] Comment on above: Performed By: #### L 100.0100, L500.4050 ####[facility] [address] [place], [address] AST [Catalytic activity/Vol] 11 U/L Low 15-37 [facility] Comment on above: Performed By: #### L 100.0100, L500.4050 ####[facility] [address] [place], [address] Bilirubin [Mass/Vol] 0.30 mg/dL Normal 0.20-1.00 [facility] Comment on above: Result Comment: For patients on eltrombopag therapy, use of Dimension Earle TBIL is not recommended. Performed By: #### L 100.0100, L500.4050 ####[facility] [address] [place], [address] BUN/CRE 17.1 RATIO Normal 10-20 [facility] Comment on above: Performed By: #### L 100.0100, L500.4050 ####[facility] [address] [place], [address] CA,Total 9.2 mg/dL Normal 8.5-10.1 [facility] Comment on above: Performed By: #### L 100.0100, L500.4050 ####[facility] [address] [place], [address] Chloride [Moles/Vol] 106 mmol/L Normal 98-107 [facility] Comment on above: Performed By: #### L 100.0100, L500.4050 ####[facility] [address] [place], [address] CO2 [Moles/Vol] 29.0 mmol/L Normal 21.0-32.0 [facility] Comment on above: Performed By: #### L 100.0100, L500.4050 ####[facility] [address] [place], [address] Creatinine [Mass/Vol] 1.11 mg/dL Normal 0.70-1.30 [facility] Comment on above: Result Comment: The validity of the calculated GFR GFRAA in patients over70 years has not been determined. Clinical correlation isessential. Performed By: #### L 100.0100, L500.4050 ####[facility] [address] [place], [address] ECRCL 65.20 ml/min Normal [facility] Comment on above: Performed By: #### L 100.0100, L500.4050 ####[facility] [address] [place], [address] EST GFR - AA 85 mL/min Normal >60 [facility] Comment on above: Result Comment: Afri can Brune[place] GFR Calc Performed By: #### L 100.0100, L500.4050 ####[facility] [address] [place], [address] GAP 7 Normal 5-15 [facility] Comment on above: Performed By: #### L 100.0100, L500.4050 ####[facility] [address] [place], [address] GFR/1.73 sq M.predicted among non-blacks MDRD (S/P/Bld) [Vol rate/Area] 70 mL/min/{1.73_m2} Normal >60 [facility] Comment on above: Result Comment: Non- GFR Calc Performed By: #### L 100.0100, L500.4050 ####[facility] [address] [place], [address] Globulin (S) [Mass/Vol] 3.0 g/dL Normal 2.2-4.2 [facility] Comment on above: Performed By: #### L 100.0100, L500.4050 ####[facility] [address] [place], [address] Glucose [Mass/Vol] 137 mg/dL High 74-106 [facility] Comment on above: Result Comment: Fast ing Glucose result greater than or equal to 126 mg/dLsuggests DIABETES MELLITUS per A.D.A. criteria. Performed By: #### L 100.0100, L500.4050 ####[facility] [address] [place], [address] Potassium [Moles/Vol] 4.0 mmol/L Normal 3.5-5.1 [facility] Comment on above: Performed By: #### L 100.0100, L500.4050 ####[facility] [address] [place], [address] Sodium [Moles/Vol] 142 mmol/L Normal 136-145 [facility] Comment on above: Performed By: #### L 100.0100, L500.4050 ####[facility] [address] [place], [address] T PROT 6.3 g/dL Low 6.4-8.2 [facility] Comment on above: Performed By: #### L 100.0100, L500.4050 ####[facility] [address] [place], [address] Urea nitrogen [Mass/Vol] 19 mg/dL High 7-18 [facility] Comment on above: Performed By: #### L 100.0100, L500.4050 ####[facility] [address] [place], [address] Estimated glomerular filtrat ion rate (GFR) AmericanOrdered By: Jenn Perez on 11-09-2024 Estimated GFR (MDRD) Amer 85 mL/min >60 [facility] Comment on above: GFR Calc Gamma globulin Elph [Mass/Vo l]Ordered By: Zayda Hanson on 11-09-2024 Gamma Globulins (ELINA) 0.3 g/dL Low 0.4-1.8 [facility] IgA [Mass/Vol]Ordered By: Keron Hanson on 11-09-2024 Immunoglobulin A 21 mg/dL Low 61-437 [facility] Comment on above: Result confirmed on concentration. IgG [Mass/Vol]Ordered By: Keron Hanson on 11-09-2024 Immunoglobulin G 461 mg/dL Low 603-1613 [facility] Immunoglobulin M measurement Ordered By: Zayda Hanson on 11-09-2024 Immunoglobulin M 14 mg/dL Low 20-172 [facility] Comment on above: Result confirmed on concentration. Immunoglobulin light chains. kappa [Mass/Vol]Ordered By: Zayda Hanson on 11-09-2024 Free Centerview Light Chains, Quant 6.0 mg/L 3.3-19.4 [facility] Immunoglobulin light chains. kappa/Immunoglobulin light chains.lambda (S) [Mass ratio]Ordered By: Zayda Hanson on 11-09-2024 Free Centerview/Lambda Light Chain Ratio 2.22 High 0.26-1.65 [facility] Comment on above: Performed at: [place] [id number] Director: Micyk Arreola PhD, Phone: [phone] Interpretation IEP [Interp]O rdered By: Zyada Hanson on 11-09-2024 Immunofixation Screen Comment High . [facility] Comment on above: Immunofixation shows IgG monoclonal protein with kappalight chain specificity. PLEASE NOTE: Samples from patients receiving DARZALEX(R)(daratumumab) or SARCLISA(R)(isatuximab-irfc) treatmentcan appear as an IgG kappa and mask a complete response(CR). If this patient is receiving these therapies, thisIFE assay interference can be removed by ordering testnumber [id number]-Zjqkucljbqjrtj, Daratumumab-Specific,Serum or [id number]-Hefgccbyfbqibq, Isatuximab-Specific,Serum and submitting a new sample for testing or bycalling the lab to add this test to the current sample. Lambda free light chain giovanny urementOrdered By: Zayda Hanson on 11-09-2024 Free Lambda Light Chains, Quant 2.7 mg/L Low 5.7-26.3 [facility] Oncology Visit Reporton 10-28 Oncology Visit Report Normal [facility] Protein Fractions Immunofixa tion Johnny [Interp]Ordered By: Zayda Hanson on 11-09-2024 M-Raúl (ELINA) 0.1 g/dL High Not Observed [facility] Serum albumin/globulin ratio Ordered By: Zayda Hanson on 11-09-2024 Albumin/Globulin (ELINA) 1.7 0.7-1.7 [facility] Serum or plasma protein giovanny urement (mass/volume)Ordered By: Zayda Hanson on 11-09-2024 Protein [Mass/Vol] 5.6 g/dL Low 6.0-8.5 [facility] Plastic Surgery Visit Report on 11-02-2024 Plastic Surgery Visit Report Normal [facility] Bilirubin Test strip Ql (U)O rdered By: Blade Milner on 10-20-2024 Bilirubin Ql (U) Negative Negative [facility] Glucose Ql (U)Ordered By: Zacarias Milner on 10-20-2024 Urine Glucose (UA) Normal mg/dl Normal [facility] Ketones Test strip Ql (U)Ord ered By: Blade Milner on 10-20-2024 Ketones Ql (U) Negative Negative [facility] Nitrite Test strip Ql (U)Ord ered By: Blade Milner on 10-20-2024 Nitrite Ql (U) Negative Negative [facility] Protein Test strip Ql (U)Ord ered By: Blade Milner on 10-20-2024 Protein Ql (U) 30 mg/dl High Negative [facility] Urine blood detectionOrdered By: Blade Milner on 10-20-2024 Urine Occult Blood 250 /ul High Negative [facility] Urine clarityOrdered By: Nabor Milner on 10-20-2024 Clarity (U) Sl Cloudy Clear [facility] Urine color determinationOrd ered By: Blade Milner on 10-20-2024 Color (U) Yellow Yellow [facility] Urine cultureOrdered By: Nabor Milner on 10-20-2024 Bacteria identified Cx Nom (U) Pseudomonas aeruginosa Abnormal [facility] Urine glucose detectionOrder ed By: Blade Milner on 10-20-2024 Glucose Ql (U) Normal mg/dl Normal [facility] Urine leukocyte esterase det ection by dipstickOrdered By: Blade Milner on 10-20-2024 Leukocyte esterase Test strip Ql (U) 500 /ul High Negative [facility] Urine pHOrdered By: Blade aleman on 10-20-2024 pH (U) 7.0 [pH] 5.0 - 8.0 [facility] Urine specific gravity measu rementOrdered By: Blade Milner on 10-20-2024 Specific gravity (U) [Rel density] 1.010 1.002-1.030 [facility] Urine urobilinogen measureme ntOrdered By: Blade Milner on 10-20-2024 Urobilinogen Ql (U) Normal mg/dl Normal [facility] Urobilinogen Ql (U)Ordered B y: Blade Milner on 10-20-2024 Urine Urobilinogen Normal mg/dl Normal [facility] ELINA + Protein Elect, Serumon 10-17-2024 Albumin [Mass/Vol] 3.9 g/dL Normal 2.9-4.4 [facility] Comment on above: Order Comment: OPAL OWN Performed By: #### L 501.5200, L3100.3425, L501.2300, L3130.0010 ####[facility] [address] [place], [address] Albumin/Globulin [Mass ratio] 2.3 {ratio} High 0.7-1.7 [facility] Comment on above: Order Comment: OPAL OWN Performed By: #### L 501.5200, L3100.3425, L501.2300, L3130.0010 ####[facility] [address] [place], [address] YJBAT-8-WKAL 0.1 g/dL Normal 0.0-0.4 [facility] Comment on above: Order Comment: NUNKN OWN Performed By: #### L 501.5200, L3100.3425, L501.2300, L3130.0010 ####[facility] [address] [place], [address] NKONA-0-BXRI 0.7 g/dL Normal 0.4-1.0 [facility] Comment on above: Order Comment: NUNKN OWN Performed By: #### L 501.5200, L3100.3425, L501.2300, L3130.0010 ####[facility] [address] [place], [address] BETA GLOBULIN 0.7 g/dL Normal 0.7-1.3 [facility] Comment on above: Order Comment: NUNKN OWN Performed By: #### L 501.5200, L3100.3425, L501.2300, L3130.0010 ####[facility] [address] [place], [address] GAMMA GLOBULIN 0.3 g/dL Low 0.4-1.8 [facility] Comment on above: Order Comment: NUNKN OWN Performed By: #### L 501.5200, L3100.3425, L501.2300, L3130.0010 ####[facility] [address] [place], [address] Globulin (S) [Mass/Vol] 1.7 g/dL Abnormal 2.2-3.9 [facility] Comment on above: Order Comment: NUNKN OWN Performed By: #### L 501.5200, L3100.3425, L501.2300, L3130.0010 ####[facility] [address] [place], [address] ELINA RESULT,S Comment Abnormal . [facility] Comment on above: Order Comment: NUNKN OWN Result Comment: Immu nofixation shows IgG monoclonal protein with kappalight chain specificity. PLEASE NOTE: Samples from patients receiving DARZALEX(R)(daratumumab) or SARCLISA(R)(isatuximab-irfc) treatmentcan appear as an IgG kappa and mask a complete response(CR). If this patient is receiving these therapies, thisIFE assay interference can be removed by ordering testnumber [id number], Daratumumab-Specific,Serum or [id number], Isatuximab-Specific,Serum and submitting a new sample for testing or bycalling the lab to add this test to the current sample. Performed By: #### L 501.5200, L3100.3425, L501.2300, L3130.0010 ####[facility] [address] [place], [address] IMMUNOGLOB A QN 22 mg/dL Low 61-437 [facility] Comment on above: Order Comment: OPAL OWN Result Comment: Resu lt confirmed on concentration. Performed By: #### L 501.5200, L3100.3425, L501.2300, L3130.0010 ####[facility] [address] [place], [address] IMMUNOGLOB G QN 431 mg/dL Low 603-1613 [facility] Comment on above: Order Comment: OPAL OWN Performed By: #### L 501.5200, L3100.3425, L501.2300, L3130.0010 ####[facility] [address] [place], [address] IMMUNOGLOB M QN 14 mg/dL Low 20-172 [facility] Comment on above: Order Comment: OPAL OWN Result Comment: Resu lt confirmed on concentration. Performed By: #### L 501.5200, L3100.3425, L501.2300, L3130.0010 ####[facility] [address] [place], [address] M-Raúl Comment: Normal Not Observed [facility] Comment on above: Order Comment: NUNKN OWN Result Comment: Due to the small quantity of monoclonal protein, unable toquantitate the M-spike. Performed By: #### L 501.5200, L3100.3425, L501.2300, L3130.0010 ####[facility] [address] [place], [address] NOTE: Comment Normal . [facility] Comment on above: Order Comment: NUNKN OWN Result Comment: Prot ein electrophoresis scan will follow via computer,mail, or lean leader delivery. Performed By: #### L 501.5200, L3100.3425, L501.2300, L3130.0010 ####[facility] [address] [place], [address] Protein [Mass/Vol] 5.6 g/dL Low 6.0-8.5 [facility] Comment on above: Order Comment: NUNKN OWN Performed By: #### L 501.5200, L3100.3425, L501.2300, L3130.0010 ####[facility] [address] [place], [address] [facility] Lambda Light Chainson 10-17-2024 FR KAPPA LT CHN 6.1 mg/L Normal 3.3-19.4 [facility] Comment on above: Order Comment: NUNKN OWN Performed By: #### L 501.5200, L3100.3425, L501.2300, L3130.0010 ####[facility] [address] [place], [address] FR LAMBDA LT CH 3.3 mg/L Abnormal 5.7-26.3 [facility] Comment on above: Order Comment: NUNKN OWN Performed By: #### L 501.5200, L3100.3425, L501.2300, L3130.0010 ####[facility] [address] [place], [address] KAPPA/LAMBDA % 1.85 Abnormal 0.26-1.65 [facility] Comment on above: Order Comment: LINDAAprylSAURAV OWN Result Comment: Perf ormed at: - [facility] [address] [id number] Director: Micky Arreola PhD, Phone: [phone] Performed By: #### L 501.5200, L3100.3425, L501.2300, L3130.0010 ####[facility] [address] [place], [address] CBC W/Diff, Automatedon 09-27 Absolute Lymph 0.53 X10 3/uL Low 0.83-4.51 [facility] Comment on above: Performed By: #### L 500.4050, L100.0100 ####[facility] [address] [place], [address] Absolute Neut 2.4 X10 3/uL Normal 2.0-7.7 [facility] Comment on above: Performed By: #### L 500.4050, L100.0100 ####[facility] [address] [place], [address] Basophils/100 WBC (Bld) 1.7 % High 0-1 [facility] Comment on above: Performed By: #### L 500.4050, L100.0100 ####[facility] [address] [place], [address] Eosinophils/100 WBC (Bld) 4.4 % Normal 0-5 [facility] Comment on above: Performed By: #### L 500.4050, L100.0100 ####[facility] [address] [place], [address] Erythrocyte distribution width (RBC) [Ratio] 15.4 % High 11.6-14.6 [facility] Comment on above: Performed By: #### L 500.4050, L100.0100 ####[facility] [address] [place], [address] Hematocrit (Bld) [Volume fraction] 38.5 % Low 40-54 [facility] Comment on above: Performed By: #### L 500.4050, L100.0100 ####[facility] [address] [place], [address] Hemoglobin (Bld) [Mass/Vol] 12.2 g/dL Low 13.0-16.5 [facility] Comment on above: Performed By: #### L 500.4050, L100.0100 ####[facility] [address] [place], [address] IG% 0.600 Normal 0.0-0.9 [facility] Comment on above: Result Comment: IG% - Immature Granulocytes (promyelocytes, myelocytes andmetamyelocytes) > 1% indicates that a LEFT SHIFT is Present. Performed By: #### L 500.4050, L100.0100 ####[facility] [address] [place], [address] Lymphocytes/100 WBC (Bld) 14.6 % Low 19-41 [facility] Comment on above: Performed By: #### L 500.4050, L100.0100 ####[facility] [address] [place], [address] MCH (RBC) [Entitic mass] 28.2 pg Normal 27.0-32.0 [facility] Comment on above: Performed By: #### L 500.4050, L100.0100 ####[facility] [address] [place], [address] MCHC (RBC) [Mass/Vol] 31.7 g/dL Low 32-36 [facility] Comment on above: Performed By: #### L 500.4050, L100.0100 ####[facility] [address] [place], [address] MCV (RBC) [Entitic vol] 89.1 fL Normal 80-94 [facility] Comment on above: Performed By: #### L 500.4050, L100.0100 ####[facility] [address] [place], [address] Monocytes/100 WBC (Bld) 12.4 % High 0-10 [facility] Comment on above: Performed By: #### L 500.4050, L100.0100 ####[facility] [address] [place], [address] Neutrophils/100 WBC (Bld) 66.3 % Normal 47-70 [facility] Comment on above: Performed By: #### L 500.4050, L100.0100 ####[facility] [address] [place], [address] Nucleated RBC (Bld) [#/Vol] 0 10*3/uL Normal 0-5 [facility] Comment on above: Performed By: #### L 500.4050, L100.0100 ####[facility] [address] [place], [address] Platelet mean volume (Bld) [Entitic vol] 10.3 fL Normal 6.2-12.0 [facility] Comment on above: Performed By: #### L 500.4050, L100.0100 ####[facility] [address] [place], [address] Platelets (Bld) [#/Vol] 164 10*3/uL Normal 150-450 [facility] Comment on above: Performed By: #### L 500.4050, L100.0100 ####[facility] [address] [place], [address] RBC (Bld) [#/Vol] 4.32 10*6/uL Low 4.6-6.2 [facility] Comment on above: Performed By: #### L 500.4050, L100.0100 ####[facility] [address] [place], [address] RDW SD 50.1 fl High 35.1-43.9 [facility] Comment on above: Performed By: #### L 500.4050, L100.0100 ####[facility] [address] [place], [address] WBC (Bld) [#/Vol] 3.6 10*3/uL Low 4.4-11.0 [facility] Comment on above: Performed By: #### L 500.4050, L100.0100 ####[facility] [address] [place], [address] Comprehensive Metabolic Prof ilon 10-12-2024 Albumin [Mass/Vol] 3.4 g/dL Normal 3.2-5.0 [facility] Comment on above: Performed By: #### L 500.4050, L100.0100 ####[facility] [address] [place], [address] Albumin/Globulin [Mass ratio] 1.3 {ratio} Normal 0.9-2.4 [facility] Comment on above: Performed By: #### L 500.4050, L100.0100 ####[facility] [address] [place], [address] ALK P 63 U/L Normal 45-117 [facility] Comment on above: Performed By: #### L 500.4050, L100.0100 ####[facility] [address] [place], [address] ALT [Catalytic activity/Vol] 15 U/L Low 16-61 [facility] Comment on above: Performed By: #### L 500.4050, L100.0100 ####[facility] [address] [place], [address] AST [Catalytic activity/Vol] 10 U/L Low 15-37 [facility] Comment on above: Performed By: #### L 500.4050, L100.0100 ####[facility] [address] [place], [address] Bilirubin [Mass/Vol] 0.30 mg/dL Normal 0.20-1.00 [facility] Comment on above: Result Comment: For patients on eltrombopag therapy, use of Dimension Earle TBIL is not recommended. Performed By: #### L 500.4050, L100.0100 ####[facility] [address] [place], [address] BUN/CRE 16.8 RATIO Normal 10-20 [facility] Comment on above: Performed By: #### L 500.4050, L100.0100 ####[facility] [address] [place], [address] CA,Total 9.4 mg/dL Normal 8.5-10.1 [facility] Comment on above: Performed By: #### L 500.4050, L100.0100 ####[facility] [address] [place], [address] Chloride [Moles/Vol] 104 mmol/L Normal 98-107 [facility] Comment on above: Performed By: #### L 500.4050, L100.0100 ####[facility] [address] [place], [address] CO2 [Moles/Vol] 29.0 mmol/L Normal 21.0-32.0 [facility] Comment on above: Performed By: #### L 500.4050, L100.0100 ####[facility] [address] [place], [address] Creatinine [Mass/Vol] 1.07 mg/dL Normal 0.70-1.30 [facility] Comment on above: Result Comment: The validity of the calculated GFR GFRAA in patients over70 years has not been determined. Clinical correlation isessential. Performed By: #### L 500.4050, L100.0100 ####[facility] [address] [place], [address] ECRCL 66.25 ml/min Normal [facility] Comment on above: Performed By: #### L 500.4050, L100.0100 ####[facility] [address] [place], [address] EST GFR - AA 89 mL/min Normal >60 [facility] Comment on above: Result Comment: Afri can Bruneian GFR Calc Performed By: #### L 500.4050, L100.0100 ####[facility] [address] [place], [address] GAP 7 Normal 5-15 [facility] Comment on above: Performed By: #### L 500.4050, L100.0100 ####[facility] [address] [place], [address] GFR/1.73 sq M.predicted among non-blacks MDRD (S/P/Bld) [Vol rate/Area] 73 mL/min/{1.73_m2} Normal >60 [facility] Comment on above: Result Comment: Non- GFR Calc Performed By: #### L 500.4050, L100.0100 ####[facility] [address] [place], [address] Globulin (S) [Mass/Vol] 2.7 g/dL Normal 2.2-4.2 [facility] Comment on above: Performed By: #### L 500.4050, L100.0100 ####[facility] [address] [place], [address] Glucose [Mass/Vol] 156 mg/dL High 74-106 [facility] Comment on above: Result Comment: Fast ing Glucose result greater than or equal to 126 mg/dLsuggests DIABETES MELLITUS per A.D.A. criteria. Performed By: #### L 500.4050, L100.0100 ####[facility] [address] [place], [address] Potassium [Moles/Vol] 3.9 mmol/L Normal 3.5-5.1 [facility] Comment on above: Performed By: #### L 500.4050, L100.0100 ####[facility] [address] [place], [address] Sodium [Moles/Vol] 141 mmol/L Normal 136-145 [facility] Comment on above: Performed By: #### L 500.4050, L100.0100 ####[facility] [address] [place], [address] T PROT 6.1 g/dL Low 6.4-8.2 [facility] Comment on above: Performed By: #### L 500.4050, L100.0100 ####[facility] [address] [place], [address] Urea nitrogen [Mass/Vol] 18 mg/dL Normal 7-18 [facility] Comment on above: Performed By: #### L 500.4050, L100.0100 ####[facility] [address] [place], [address] Magnesiumon 10-12-2024 Magnesium [Mass/Vol] 1.5 mg/dL Low 1.6-2.6 [facility] Comment on above: Performed By: #### L 501.5200, L3100.3425, L501.2300, L3130.0010 ####[facility] [address] [place], [address] Magnesium measurementOrdered By: Jenn Perez on 10-12-2024 Magnesium [Mass/Vol] 1.5 mg/dL Low 1.6-2.6 [facility] Oncology Visit Reporton 09-27 Oncology Visit Report Normal [facility] Phosphoruson 10-12-2024 Phosphate [Mass/Vol] 3.4 mg/dL Normal 2.5-4.9 [facility] Comment on above: Performed By: #### L 501.5200, L3100.3425, L501.2300, L3130.0010 ####[facility] [address] [place], [address] Phosphorus measurementOrdere d By: Jenn Perez on 10-12-2024 Phosphorus Level 3.4 mg/dL 2.5-4.9 [facility] CNPNon 10-06-2024 CNPN Telephone (AKURFL) ARMAND BARRON ([id number]) 1955 M Date Time Provider Department 10/06/24 RIC SOUZA During your visit today, we recorded the following information about you: Kira Cummings 10/06/2024 1:56 PM Signed Faxed referral For James Souza For Vanegas care/removal of vanegas (almost 2 years use) RACHELE Hicks the health care person to call back to schedule Pt is in residential Referral scanned Thanks Anupama Rodriguez 10/06/2024 4:36 PM Matt Hicks returned the call, patient has been scheduled for 11/10/2024 at 10:00a.m. with Dr. Souza in [place]. Fang Rodriguez October 06, 2024 4:36 PM Allergies As of Date: 10/06/2024 (Not on File) Date Reviewed: Never Reviewed Reason for Visit: Appointment [186] Problem List As Of Date: 10/06/2024 (None) Encounter Status:Closed by KIRA CUMMINGS on 10/06/[address] [facility] Urine Cultureon 10-04-2024 URC Normal [facility] Comment on above: Performed By: #### M 100.2200 ####[facility] [address] [place], [place], [address] Bilirubin Test strip Ql (U)O rdered By: Arturo Snyder on 10-02-2024 Bilirubin Ql (U) Negative Negative [facility] Emergency Department Summary on 10-02-2024 Emergency Department Summary Normal [facility] Epithelial cells.squamous LM Ql (Urine sed)Ordered By: Arturo Snyder on 10-02-2024 Epithelial cells.squamous LM.HPF (Urine sed) [#/Area] 0 /[HPF] 0-5 [facility] Glucose Ql (U)Ordered By: Julio Snyder on 10-02-2024 Urine Glucose (UA) Normal mg/dl Normal [facility] Ketones Test strip Ql (U)Ord ered By: Arturo Snyder on 10-02-2024 Ketones Ql (U) Negative Negative [facility] Microscopic analysis of urin e for red blood cells (RBC)Ordered By: Arturo Snyder on 10-02-2024 Urine RBC 0-5 SEEN /hpf 0-5 [facility] Mucus LM Ql (Urine sed)Order ed By: Arturo Snyder on 10-02-2024 Mucus Ql (Urine sed) 0 SEEN /hpf [facility] Nitrite Test strip Ql (U)Ord ered By: Arturo Snyder on 10-02-2024 Nitrite Ql (U) Positive High Negative [facility] Protein Test strip Ql (U)Ord ered By: Arturo Snyder on 10-02-2024 Protein Ql (U) 15 mg/dl High Negative [facility] Urinalysis, Completeon 10-02 BACTERIA 1+ /hpf Normal None Seen [facility] Comment on above: Order Comment: ASHWINI TER SPECIMEN Performed By: #### L 400.0001 ####[facility] [address] [place], [place], [address] RBC 0-5 SEEN Normal 0-5 [facility] Comment on above: Order Comment: ASHWINI TER SPECIMEN Performed By: #### L 400.0001 ####[facility] [address] [place], [place], [address] WBC 10-25 SEEN Normal 0-5 [facility] Comment on above: Order Comment: ASHWINI TER SPECIMEN Performed By: #### L 400.0001 ####[facility] [address] [place], [address] EPI,SQUAMOUS 0 SEEN Normal 0-5 [facility] Comment on above: Order Comment: ASHWINI TER SPECIMEN Performed By: #### L 400.0001 ####[facility] [address] [place], [place], [address] Mucus Ql (Urine sed) 0 SEEN Normal [facility] Comment on above: Order Comment: ASHWINI TER SPECIMEN Performed By: #### L 400.0001 ####[facility] [address] [place], [place], [address] Urine blood detectionOrdered By: Arturo Snyder on 10-02-2024 Urine Occult Blood 10 /ul High Negative [facility] Urine clarityOrdered By: Yao Snyder on 10-02-2024 Clarity (U) Sl. Cloudy Clear [facility] Urine color determinationOrd ered By: Arturo Snyder on 10-02-2024 Color (U) Yellow Yellow [facility] Urine cultureOrdered By: Yao Snyder on 10-02-2024 Bacteria identified Cx Nom (U) Providencia rettgeri Abnormal [facility] Urine leukocyte esterase det ection by dipstickOrdered By: Arturo Snyder on 10-02-2024 Leukocyte esterase Test strip Ql (U) 500 /ul High Negative [facility] Urine pHOrdered By: Arturo Snyder on 10-02-2024 pH (U) 6.5 [pH] 5.0 - 8.0 [facility] Urine sediment bacteria coun t by microscopy (number/high power field)Ordered By: Arturo Snyder on 10-02-2024 Bacteria LM.HPF (Urine sed) [#/Area] 1 /[HPF] None Seen [facility] Urine specific gravity measu rementOrdered By: Arturo Snyder on 10-02-2024 Specific gravity (U) [Rel density] 1.015 1.002-1.030 [facility] Urobilinogen Ql (U)Ordered B y: Arturo Snyder on 10-02-2024 Urine Urobilinogen Normal mg/dl Normal [facility] White blood cell countOrdere d By: Arturo Snyder on 10-02-2024 Urine WBC 10-25 SEEN /hpf 0-5 [facility] ELINA + Protein Elect, Serumon 09-18-2024 Albumin [Mass/Vol] 3.3 g/dL Normal 2.9-4.4 [facility] Comment on above: Order Comment: NUNKN OWN Performed By: #### L 500.4050, L100.0100, L3100.3425, L3130.0010 ####[facility] [address] [place], [address] Albumin/Globulin [Mass ratio] 1.4 {ratio} Normal 0.7-1.7 [facility] Comment on above: Order Comment: NUNKN OWN Performed By: #### L 500.4050, L100.0100, L3100.3425, L3130.0010 ####[facility] [address] [place], [address] WOCOR-1-VLCN 0.2 g/dL Normal 0.0-0.4 [facility] Comment on above: Order Comment: NUNKN OWN Performed By: #### L 500.4050, L100.0100, L3100.3425, L3130.0010 ####[facility] [address] [place], [address] TXUII-2-RWUV 0.9 g/dL Normal 0.4-1.0 [facility] Comment on above: Order Comment: NUNKN OWN Performed By: #### L 500.4050, L100.0100, L3100.3425, L3130.0010 ####[facility] [address] [place], [address] BETA GLOBULIN 0.9 g/dL Normal 0.7-1.3 [facility] Comment on above: Order Comment: NUNKN OWN Performed By: #### L 500.4050, L100.0100, L3100.3425, L3130.0010 ####[facility] [address] [place], [address] GAMMA GLOBULIN 0.4 g/dL Normal 0.4-1.8 [facility] Comment on above: Order Comment: NUNKN OWN Performed By: #### L 500.4050, L100.0100, L3100.3425, L3130.0010 ####[facility] [address] [place], [address] Globulin (S) [Mass/Vol] 2.5 g/dL Normal 2.2-3.9 [facility] Comment on above: Order Comment: NUNKN OWN Performed By: #### L 500.4050, L100.0100, L3100.3425, L3130.0010 ####[facility] [address] [place], [address] ELINA RESULT,S Comment: Normal . [facility] Comment on above: Order Comment: NUNKN OWN Result Comment: Pres ence of monoclonal protein is unclear at this time. Suggestrepeat in 3 to 6 months if clinically indicated. Performed By: #### L 500.4050, L100.0100, L3100.3425, L3130.0010 ####[facility] [address] [place], [address] IMMUNOGLOB A QN 21 mg/dL Low 61-437 [facility] Comment on above: Order Comment: NUNKN OWN Result Comment: Resu lt confirmed on concentration. Performed By: #### L 500.4050, L100.0100, L3100.3425, L3130.0010 ####[facility] [address] [place], [address] IMMUNOGLOB G QN 419 mg/dL Low 603-1613 [facility] Comment on above: Order Comment: OPAL OWN Performed By: #### L 500.4050, L100.0100, L3100.3425, L3130.0010 ####[facility] [address] [place], [address] IMMUNOGLOB M QN 11 mg/dL Low 20-172 [facility] Comment on above: Order Comment: NUNKN OWN Result Comment: Resu lt confirmed on concentration. Performed By: #### L 500.4050, L100.0100, L3100.3425, L3130.0010 ####[facility] [address] [place], [address] M-Raúl Not Observed Normal Not Observed [facility] Comment on above: Order Comment: OPAL OWN Performed By: #### L 500.4050, L100.0100, L3100.3425, L3130.0010 ####[facility] [address] [place], [address] NOTE: Comment Normal . [facility] Comment on above: Order Comment: NUNKN OWN Result Comment: Prot ein electrophoresis scan will follow via computer,mail, or lean leader delivery. Performed By: #### L 500.4050, L100.0100, L3100.3425, L3130.0010 ####[facility] [address] [place], [address] Protein [Mass/Vol] 5.8 g/dL Low 6.0-8.5 [facility] Comment on above: Order Comment: OPAL OWN Performed By: #### L 500.4050, L100.0100, L3100.3425, L3130.0010 ####[facility] [address] [place], [address] [facility] [employer] Chainson 09-18-2024 FR KAPPA LT CHN 7.0 mg/L Normal 3.3-19.4 [facility] Comment on above: Order Comment: NUNKN OWN Performed By: #### L 500.4050, L100.0100, L3100.3425, L3130.0010 ####[facility] [address] [place], [address] FR LAMBDA LT CH 3.7 mg/L Abnormal 5.7-26.3 [facility] Comment on above: Order Comment: NUNKN OWN Performed By: #### L 500.4050, L100.0100, L3100.3425, L3130.0010 ####[facility] [address] [place], [address] KAPPA/LAMBDA % 1.89 Abnormal 0.26-1.65 [facility] Comment on above: Order Comment: NUNKN OWN Result Comment: Perf ormed at: [facility] [address] Director: Micky Arreola PhD, Phone: [phone] Performed By: #### L 500.4050, L100.0100, L3100.3425, L3130.0010 ####[facility] [address] [place], [address] CBC W/Diff, Automatedon 12- Absolute Neut Normal 2.0-7.7 [facility] Comment on above: Result Comment: Canc elled via OM: Physician Authorized Performed By: #### L 100.0100, L500.4050 ####[facility] [address] [place], [address] HCT Normal 40-54 [facility] Comment on above: Result Comment: Canc elled via OM: Physician Authorized Performed By: #### L 100.0100, L500.4050 ####[facility] [address] [place], [address] HGB Normal 13.0-16.5 [facility] Comment on above: Result Comment: Canc elled via OM: Physician Authorized Performed By: #### L 100.0100, L500.4050 ####[facility] [address] [place], [address] MCH Normal 27.0-32.0 [facility] Comment on above: Result Comment: Canc elled via OM: Physician Authorized Performed By: #### L 100.0100, L500.4050 ####[facility] [address] [place], [address] MCHC Normal 32-36 [facility] Comment on above: Result Comment: Canc elled via OM: Physician Authorized Performed By: #### L 100.0100, L500.4050 ####[facility] [address] [place], [address] MCV Normal 80-94 [facility] Comment on above: Result Comment: Canc elled via OM: Physician Authorized Performed By: #### L 100.0100, L500.4050 ####[facility] [address] [place], [address] NEUT% Normal 47-70 [facility] Comment on above: Result Comment: Canc elled via OM: Physician Authorized Performed By: #### L 100.0100, L500.4050 ####[facility] [address] [place], [address] PLT Normal 150-450 [facility] Comment on above: Result Comment: Canc elled via OM: Physician Authorized Performed By: #### L 100.0100, L500.4050 ####[facility] [address] [place], [address] RBC Normal 4.6-6.2 [facility] Comment on above: Result Comment: Canc elled via OM: Physician Authorized Performed By: #### L 100.0100, L500.4050 ####[facility] [address] [place], [address] RDW CV Normal 11.6-14.6 [facility] Comment on above: Result Comment: Canc elled via OM: Physician Authorized Performed By: #### L 100.0100, L500.4050 ####[facility] [address] [place], [address] RDW SD Normal 35.1-43.9 [facility] Comment on above: Result Comment: Canc elled via OM: Physician Authorized Performed By: #### L 100.0100, L500.4050 ####[facility] [address] [place], [address] WBC Normal 4.4-11.0 [facility] Comment on above: Result Comment: Canc elled via OM: Physician Authorized Performed By: #### L 100.0100, L500.4050 ####[facility] [address] [place], [address] Comprehensive Metabolic Prof ilon 09-14-2024 ALB Normal 3.2-5.0 [facility] Comment on above: Result Comment: Canc elled via OM: Physician Authorized Performed By: #### L 100.0100, L500.4050 ####[facility] [address] [place], [address] ALK P Normal 45-117 [facility] Comment on above: Result Comment: Canc elled via OM: Physician Authorized Performed By: #### L 100.0100, L500.4050 ####[facility] [address] [place], [address] ALT Normal 16-61 [facility] Comment on above: Result Comment: Canc elled via OM: Physician Authorized Performed By: #### L 100.0100, L500.4050 ####[facility] [address] [place], [address] AST Normal 15-37 [facility] Comment on above: Result Comment: Canc elled via OM: Physician Authorized Performed By: #### L 100.0100, L500.4050 ####[facility] [address] [place], [address] BUN Normal 7-18 [facility] Comment on above: Result Comment: Canc elled via OM: Physician Authorized Performed By: #### L 100.0100, L500.4050 ####[facility] [address] [place], [address] BUN/CRE Normal 10-20 [facility] Comment on above: Result Comment: Canc elled via OM: Physician Authorized Performed By: #### L 100.0100, L500.4050 ####[facility] [address] [place], [address] CA,Total Normal 8.5-10.1 [facility] Comment on above: Result Comment: Canc elled via OM: Physician Authorized Performed By: #### L 100.0100, L500.4050 ####[facility] [address] [place], [address] CL Normal 98-107 [facility] Comment on above: Result Comment: Canc elled via OM: Physician Authorized Performed By: #### L 100.0100, L500.4050 ####[facility] [address] [place], [address] CO2 Normal 21.0-32.0 [facility] Comment on above: Result Comment: Canc elled via OM: Physician Authorized Performed By: #### L 100.0100, L500.4050 ####[facility] [address] [place], [address] CREAT,SERUM Normal 0.70-1.30 [facility] Comment on above: Result Comment: Canc elled via OM: Physician Authorized Performed By: #### L 100.0100, L500.4050 ####[facility] [address] [place], [address] EST GFR Normal >60 [facility] Comment on above: Result Comment: Canc elled via OM: Physician Authorized Performed By: #### L 100.0100, L500.4050 ####[facility] [address] [place], [address] EST GFR - AA Normal >60 [facility] Comment on above: Result Comment: Canc elled via OM: Physician Authorized Performed By: #### L 100.0100, L500.4050 ####[facility] [address] [place], [address] GAP Normal 5-15 [facility] Comment on above: Result Comment: Canc elled via OM: Physician Authorized Performed By: #### L 100.0100, L500.4050 ####[facility] [address] [place], [address] GLU Normal 74-106 [facility] Comment on above: Result Comment: Canc elled via OM: Physician Authorized Performed By: #### L 100.0100, L500.4050 ####[facility] [address] [place], [address] Potassium Normal 3.5-5.1 [facility] Comment on above: Result Comment: Canc elled via OM: Physician Authorized Performed By: #### L 100.0100, L500.4050 ####[facility] [address] [place], [address] T BILI Normal 0.20-1.00 [facility] Comment on above: Result Comment: Canc elled via OM: Physician Authorized Performed By: #### L 100.0100, L500.4050 ####[facility] [address] [place], [address] T PROT Normal 6.4-8.2 [facility] Comment on above: Result Comment: Canc elled via OM: Physician Authorized Performed By: #### L 100.0100, L500.4050 ####[facility] [address] [place], [address] Comprehensive Metabolic Profil Normal 136-145 [facility] Comment on above: Result Comment: Canc elled via OM: Physician Authorized Performed By: #### L 100.0100, L500.4050 ####[facility] [address] [place], [address] CBC W/Diff, Automatedon 12 Absolute Lymph 0.52 X10 3/uL Low 0.83-4.51 [facility] Comment on above: Performed By: #### L 500.4050, L100.0100, L3100.3425, L3130.0010 ####[facility] [address] [place], [address] Absolute Neut 2.8 X10 3/uL Normal 2.0-7.7 [facility] Comment on above: Performed By: #### L 500.4050, L100.0100, L3100.3425, L3130.0010 ####[facility] [address] [place], [address] Basophils/100 WBC (Bld) 1.0 % Normal 0-1 [facility] Comment on above: Performed By: #### L 500.4050, L100.0100, L3100.3425, L3130.0010 ####[facility] [address] [place], [address] Eosinophils/100 WBC (Bld) 4.9 % Normal 0-5 [facility] Comment on above: Performed By: #### L 500.4050, L100.0100, L3100.3425, L3130.0010 ####[facility] [address] [place], [address] Erythrocyte distribution width (RBC) [Ratio] 14.6 % Normal 11.6-14.6 [facility] Comment on above: Performed By: #### L 500.4050, L100.0100, L3100.3425, L3130.0010 ####[facility] [address] [place], [address] Hematocrit (Bld) [Volume fraction] 37.2 % Low 40-54 [facility] Comment on above: Performed By: #### L 500.4050, L100.0100, L3100.3425, L3130.0010 ####[facility] [address] [place], [address] Hemoglobin (Bld) [Mass/Vol] 11.6 g/dL Low 13.0-16.5 [facility] Comment on above: Performed By: #### L 500.4050, L100.0100, L3100.3425, L3130.0010 ####[facility] [address] [place], [address] IG% 0.200 Normal 0.0-0.9 [facility] Comment on above: Result Comment: IG% - Immature Granulocytes (promyelocytes, myelocytes andmetamyelocytes) > 1% indicates that a LEFT SHIFT is Present. Performed By: #### L 500.4050, L100.0100, L3100.3425, L3130.0010 ####[facility] [address] [place], [address] Lymphocytes/100 WBC (Bld) 12.8 % Low 19-41 [facility] Comment on above: Performed By: #### L 500.4050, L100.0100, L3100.3425, L3130.0010 ####[facility] [address] [place], [address] MCH (RBC) [Entitic mass] 28.1 pg Normal 27.0-32.0 [facility] Comment on above: Performed By: #### L 500.4050, L100.0100, L3100.3425, L3130.0010 ####[facility] [address] [place], [address] MCHC (RBC) [Mass/Vol] 31.2 g/dL Low 32-36 [facility] Comment on above: Performed By: #### L 500.4050, L100.0100, L3100.3425, L3130.0010 ####[facility] [address] [place], [address] MCV (RBC) [Entitic vol] 90.1 fL Normal 80-94 [facility] Comment on above: Performed By: #### L 500.4050, L100.0100, L3100.3425, L3130.0010 ####[facility] [address] [place], [address] Monocytes/100 WBC (Bld) 11.8 % High 0-10 [facility] Comment on above: Performed By: #### L 500.4050, L100.0100, L3100.3425, L3130.0010 ####[facility] [address] [place], [address] Neutrophils/100 WBC (Bld) 69.3 % Normal 47-70 [facility] Comment on above: Performed By: #### L 500.4050, L100.0100, L3100.3425, L3130.0010 ####[facility] [address] [place], [address] Nucleated RBC (Bld) [#/Vol] 0 10*3/uL Normal 0-5 [facility] Comment on above: Performed By: #### L 500.4050, L100.0100, L3100.3425, L3130.0010 ####[facility] [address] [place], [address] Platelet mean volume (Bld) [Entitic vol] 10.5 fL Normal 6.2-12.0 [facility] Comment on above: Performed By: #### L 500.4050, L100.0100, L3100.3425, L3130.0010 ####[facility] [address] [place], [address] Platelets (Bld) [#/Vol] 165 10*3/uL Normal 150-450 [facility] Comment on above: Performed By: #### L 500.4050, L100.0100, L3100.3425, L3130.0010 ####[facility] [address] [place], [address] RBC (Bld) [#/Vol] 4.13 10*6/uL Low 4.6-6.2 [facility] Comment on above: Performed By: #### L 500.4050, L100.0100, L3100.3425, L3130.0010 ####[facility] [address] [place], [address] RDW SD 48.0 fl High 35.1-43.9 [facility] Comment on above: Performed By: #### L 500.4050, L100.0100, L3100.3425, L3130.0010 ####[facility] [address] [place], [address] WBC (Bld) [#/Vol] 4.1 10*3/uL Low 4.4-11.0 [facility] Comment on above: Performed By: #### L 500.4050, L100.0100, L3100.3425, L3130.0010 ####[facility] [address] [place], [address] Absolute Neut Normal 2.0-7.7 [facility] Comment on above: Result Comment: DUPL ICATE Performed By: #### L 500.4050, L100.0100 ####[facility] [address] [place], [address] HCT Normal 40-54 [facility] Comment on above: Result Comment: DUPL ICATE Performed By: #### L 500.4050, L100.0100 ####[facility] [address] [place], [address] HGB Normal 13.0-16.5 [facility] Comment on above: Result Comment: DUPL ICATE Performed By: #### L 500.4050, L100.0100 ####[facility] [address] [place], [address] MCH Normal 27.0-32.0 [facility] Comment on above: Result Comment: DUPL ICATE Performed By: #### L 500.4050, L100.0100 ####[facility] [address] [place], [address] MCHC Normal 32-36 [facility] Comment on above: Result Comment: DUPL ICATE Performed By: #### L 500.4050, L100.0100 ####[facility] [address] [place], [address] MCV Normal 80-94 [facility] Comment on above: Result Comment: DUPL ICATE Performed By: #### L 500.4050, L100.0100 ####[facility] [address] [place], [address] NEUT% Normal 47-70 [facility] Comment on above: Result Comment: DUPL ICATE Performed By: #### L 500.4050, L100.0100 ####[facility] [address] [place], [address] PLT Normal 150-450 [facility] Comment on above: Result Comment: DUPL ICATE Performed By: #### L 500.4050, L100.0100 ####[facility] [address] [place], [address] RBC Normal 4.6-6.2 [facility] Comment on above: Result Comment: DUPL ICATE Performed By: #### L 500.4050, L100.0100 ####[facility] [address] [place], [address] RDW CV Normal 11.6-14.6 [facility] Comment on above: Result Comment: DUPL ICATE Performed By: #### L 500.4050, L100.0100 ####[facility] [address] [place], [address] RDW SD Normal 35.1-43.9 [facility] Comment on above: Result Comment: DUPL ICATE Performed By: #### L 500.4050, L100.0100 ####[facility] [address] [place], [address] WBC Normal 4.4-11.0 [facility] Comment on above: Result Comment: DUPL ICATE Performed By: #### L 500.4050, L100.0100 ####[facility] [address] [place], [address] Comprehensive Metabolic Prof [facility] 09-13-2024 Albumin [Mass/Vol] 3.3 g/dL Normal 3.2-5.0 [facility] Comment on above: Order Comment: UNKNO WN Performed By: #### L 500.4050, L100.0100, L3100.3425, L3130.0010 ####[facility] [address] [place], [address] Albumin/Globulin [Mass ratio] 1.1 {ratio} Normal 0.9-2.4 [facility] Comment on above: Order Comment: UNKNO WN Performed By: #### L 500.4050, L100.0100, L3100.3425, L3130.0010 ####[facility] [address] [place], [address] ALK P 52 U/L Normal 45-117 [facility] Comment on above: Order Comment: UNKNO WN Performed By: #### L 500.4050, L100.0100, L3100.3425, L3130.0010 ####[facility] [address] [place], [address] ALT [Catalytic activity/Vol] 16 U/L Normal 16-61 [facility] Comment on above: Order Comment: UNKNO WN Performed By: #### L 500.4050, L100.0100, L3100.3425, L3130.0010 ####[facility] [address] [place], [address] AST [Catalytic activity/Vol] 8 U/L Low 15-37 [facility] Comment on above: Order Comment: UNKNO WN Performed By: #### L 500.4050, L100.0100, L3100.3425, L3130.0010 ####[facility] [address] [place], [address] Bilirubin [Mass/Vol] 0.40 mg/dL Normal 0.20-1.00 [facility] Comment on above: Order Comment: UNKNO WN Result Comment: For patients on eltrombopag therapy, use of Dimension Earle TBIL is not recommended. Performed By: #### L 500.4050, L100.0100, L3100.3425, L3130.0010 ####[facility] [address] [place], [address] BUN/CRE 17.8 RATIO Normal 10-20 [facility] Comment on above: Order Comment: UNKNO WN Performed By: #### L 500.4050, L100.0100, L3100.3425, L3130.0010 ####[facility] [address] [place], [address] CA,Total 9.2 mg/dL Normal 8.5-10.1 [facility] Comment on above: Order Comment: UNKNO WN Performed By: #### L 500.4050, L100.0100, L3100.3425, L3130.0010 ####[facility] [address] [place], [address] Chloride [Moles/Vol] 105 mmol/L Normal 98-107 [facility] Comment on above: Order Comment: UNKNO WN Performed By: #### L 500.4050, L100.0100, L3100.3425, L3130.0010 ####[facility] [address] [place], [address] CO2 [Moles/Vol] 28.0 mmol/L Normal 21.0-32.0 [facility] Comment on above: Order Comment: UNKNO WN Performed By: #### L 500.4050, L100.0100, L3100.3425, L3130.0010 ####[facility] [address] [place], [address] Creatinine [Mass/Vol] 1.07 mg/dL Normal 0.70-1.30 [facility] Comment on above: Order Comment: UNKNO WN Result Comment: The validity of the calculated GFR GFRAA in patients over70 years has not been determined. Clinical correlation isessential. Performed By: #### L 500.4050, L100.0100, L3100.3425, L3130.0010 ####[facility] [address] [place], [address] ECRCL 63.90 ml/min Normal [facility] Comment on above: Order Comment: UNKNO WN Performed By: #### L 500.4050, L100.0100, L3100.3425, L3130.0010 ####[facility] [address] [place], [address] EST GFR - AA 89 mL/min Normal >60 [facility] Comment on above: Order Comment: UNKNO WN Result Comment: Afri can [place]une[place] GFR Calc Performed By: #### L 500.4050, L100.0100, L3100.3425, L3130.0010 ####[facility] [address] [place], [address] GAP 5 Normal 5-15 [facility] Comment on above: Order Comment: UNKNO WN Performed By: #### L 500.4050, L100.0100, L3100.3425, L3130.0010 ####[facility] [address] [place], [address] GFR/1.73 sq M.predicted among non-blacks MDRD (S/P/Bld) [Vol rate/Area] 73 mL/min/{1.73_m2} Normal >60 [facility] Comment on above: Order Comment: UNKNO WN Result Comment: Non- GFR Calc Performed By: #### L 500.4050, L100.0100, L3100.3425, L3130.0010 ####[facility] [address] [place], [address] Globulin (S) [Mass/Vol] 2.9 g/dL Normal 2.2-4.2 [facility] Comment on above: Order Comment: UNKNO WN Performed By: #### L 500.4050, L100.0100, L3100.3425, L3130.0010 ####[facility] [address] [place], [address] Glucose [Mass/Vol] 106 mg/dL Normal 74-106 [facility] Comment on above: Order Comment: UNKNO WN Result Comment: Fast ing Glucose result from 100 to 125 mg/dLsuggests IMPAIRED HOMEOSTASIS per A.D.A. criteria. Performed By: #### L 500.4050, L100.0100, L3100.3425, L3130.0010 ####[facility] [address] [place], [address] Potassium [Moles/Vol] 3.9 mmol/L Normal 3.5-5.1 [facility] Comment on above: Order Comment: UNKNO WN Performed By: #### L 500.4050, L100.0100, L3100.3425, L3130.0010 ####[facility] [address] [place], [address] Sodium [Moles/Vol] 138 mmol/L Normal 136-145 [facility] Comment on above: Order Comment: UNKNO WN Performed By: #### L 500.4050, L100.0100, L3100.3425, L3130.0010 ####[facility] [address] [place], [address] T PROT 6.2 g/dL Low 6.4-8.2 [facility] Comment on above: Order Comment: UNKNO WN Performed By: #### L 500.4050, L100.0100, L3100.3425, L3130.0010 ####[facility] [address] [place], [address] Urea nitrogen [Mass/Vol] 19 mg/dL High 7-18 [facility] Comment on above: Order Comment: UNKNO WN Performed By: #### L 500.4050, L100.0100, L3100.3425, L3130.0010 ####[facility] [address] [place], [address] ALB Normal 3.2-5.0 [facility] Comment on above: Result Comment: DUPL ICATE Performed By: #### L 500.4050, L100.0100 ####[facility] [address] [place], [address] ALK P Normal 45-117 [facility] Comment on above: Result Comment: DUPL ICATE Performed By: #### L 500.4050, L100.0100 ####[facility] [address] [place], [address] ALT Normal 16-61 [facility] Comment on above: Result Comment: DUPL ICATE Performed By: #### L 500.4050, L100.0100 ####[facility] [address] [place], [address] AST Normal 15-37 [facility] Comment on above: Result Comment: DUPL ICATE Performed By: #### L 500.4050, L100.0100 ####[facility] [address] [place], [address] BUN Normal 7-18 [facility] Comment on above: Result Comment: DUPL ICATE Performed By: #### L 500.4050, L100.0100 ####[facility] [address] [place], [address] BUN/CRE Normal 10-20 [facility] Comment on above: Result Comment: DUPL ICATE Performed By: #### L 500.4050, L100.0100 ####[facility] [address] [place], [address] CA,Total Normal 8.5-10.1 [facility] Comment on above: Result Comment: DUPL ICATE Performed By: #### L 500.4050, L100.0100 ####[facility] [address] [place], [address] CL Normal 98-107 [facility] Comment on above: Result Comment: DUPL ICATE Performed By: #### L 500.4050, L100.0100 ####[facility] [address] [place], [address] CO2 Normal 21.0-32.0 [facility] Comment on above: Result Comment: DUPL ICATE Performed By: #### L 500.4050, L100.0100 ####[facility] [address] [place], [address] CREAT,SERUM Normal 0.70-1.30 [facility] Comment on above: Result Comment: DUPL ICATE Performed By: #### L 500.4050, L100.0100 ####[facility] [address] [place], [address] EST GFR Normal >60 [facility] Comment on above: Result Comment: DUPL ICATE Performed By: #### L 500.4050, L100.0100 ####[facility] [address] [place], [address] EST GFR - AA Normal >60 [facility] Comment on above: Result Comment: DUPL ICATE Performed By: #### L 500.4050, L100.0100 ####[facility] [address] [place], [address] GAP Normal 5-15 [facility] Comment on above: Result Comment: DUPL ICATE Performed By: #### L 500.4050, L100.0100 ####[facility] [address] [place], [address] GLU Normal 74-106 [facility] Comment on above: Result Comment: DUPL ICATE Performed By: #### L 500.4050, L100.0100 ####[facility] [address] [place], [address] Potassium Normal 3.5-5.1 [facility] Comment on above: Result Comment: DUPL ICATE Performed By: #### L 500.4050, L100.0100 ####[facility] [address] [place], [address] T BILI Normal 0.20-1.00 [facility] Comment on above: Result Comment: DUPL ICATE Performed By: #### L 500.4050, L100.0100 ####[facility] [address] [place], [address] T PROT Normal 6.4-8.2 [facility] Comment on above: Result Comment: DUPL ICATE Performed By: #### L 500.4050, L100.0100 ####[facility] [address] [place], [address] Comprehensive Metabolic Profil Normal 136-145 [facility] Comment on above: Result Comment: DUPL ICATE Performed By: #### L 500.4050, L100.0100 ####[facility] [address] [place], [address] Oncology Visit Reporton 08-27 Oncology Visit Report Normal [facility] CBC AND ELECTRONIC DIFFon Abs Baso Auto < Normal 0.00-0.09 [facility] Comment on above: Performed By: #### L AB980 #### [facility] (DEFAULT) [address] [address] Basophils/100 WBC (Bld) 0.7 % Normal [facility] Comment on above: Performed By: #### L AB980 #### [facility] (DEFAULT) [address] [address] DIFF STATUS Electronic Differential Normal [facility] Comment on above: Performed By: #### L AB980 #### [facility] (DEFAULT) [address] [address] Eosinophils (Bld) [#/Vol] 0.22 10*3/uL Normal 0.00-0.48 [facility] Comment on above: Performed By: #### L AB980 #### [facility] (DEFAULT) [address] [address] Eosinophils/100 WBC (Bld) 5.1 % Normal [facility] Comment on above: Performed By: #### L AB980 #### [facility] (DEFAULT) [address] [address] Hematocrit (Bld) [Volume fraction] 37.0 % Low 39.6-48.8 [facility] Comment on above: Performed By: #### L AB980 #### [facility] (DEFAULT) [address] [address] Hemoglobin (Bld) [Mass/Vol] 11.9 g/dL Low 13.4-16.8 [facility] Comment on above: Performed By: #### L AB980 #### [facility] (DEFAULT) [address] [address] Immature Grans % 0.2 % Normal [facility] Comment on above: Performed By: #### L AB980 #### [facility] (DEFAULT) [address] [address] Immature Grans Absolute < Normal <=0.07 [facility] Comment on above: Performed By: #### L AB980 #### [facility] (DEFAULT) [address] [address] Lymphocytes (Bld) [#/Vol] 0.49 10*3/uL Low 0.83-3.57 [facility] Comment on above: Performed By: #### L AB980 #### [facility] (DEFAULT) [address] [address] Lymphocytes/100 WBC (Bld) 11.3 % Normal [facility] Comment on above: Performed By: #### L AB980 #### [facility] (DEFAULT) [address] [address] MCV (RBC) [Entitic vol] 89.2 fL Normal 79.0-94.5 [facility] Comment on above: Performed By: #### L AB980 #### [facility] (DEFAULT) [address] [address] Mean Cell Hgb 28.7 pg Normal 26.1-33.3 [facility] Comment on above: Performed By: #### L AB980 #### [facility] (DEFAULT) [address] [place] [address] Mean Cell Hgb Conc 32.2 g/dL Normal 31.9-36.5 [facility] Comment on above: Performed By: #### L AB980 #### [facility] (DEFAULT) [address] [place] [address] Monocytes (Bld) [#/Vol] 0.55 10*3/uL Normal 0.24-0.93 [facility] Comment on above: Performed By: #### L AB980 #### [facility] (DEFAULT) [address] [place] [address] Monocytes/100 WBC (Bld) 12.7 % Normal [facility] Comment on above: Performed By: #### L AB980 #### [facility] (DEFAULT) [address] [place] [address] Nucleated RBC 0.0 /100 WBC Normal <=0.2 [facility] Comment on above: Performed By: #### L AB980 #### [facility] (DEFAULT) [address] [place] [address] Platelet mean volume (Bld) [Entitic vol] 10.5 fL Normal 8.7-12.3 [facility] Comment on above: Performed By: #### L AB980 #### [facility] (DEFAULT) [address] [place] [address] Platelets (Bld) [#/Vol] 138 10*3/uL Low 146-337 [facility] Comment on above: Performed By: #### L AB980 #### [facility] (DEFAULT) [address] [place] [address] RBC (Bld) [#/Vol] 4.15 10*6/uL Low 4.38-5.83 [facility] Comment on above: Performed By: #### L AB980 #### [facility] (DEFAULT) [address] [place] [address] RBC Distribution 14.6 % High 10.9-14.3 [facility] Comment on above: Performed By: #### L AB980 #### [facility] (DEFAULT) [address] [place] [address] Segs + Bands Auto 70.0 % Normal [facility] Comment on above: Performed By: #### L AB980 #### [facility] (DEFAULT) [address] [place] [address] Segs + Bands,Absolute Auto 3.03 K/uL Normal 1.57-6.19 [facility] Comment on above: Performed By: #### L AB980 #### [facility] (DEFAULT) [address] [place] [address] WBC (Bld) [#/Vol] 4.33 10*3/uL Normal 3.73-10.10 [facility] Comment on above: Performed By: #### L AB980 #### [facility] (DEFAULT) [address] [place] [address] COMPREHENSIVE METABOLIC PANE Jim 09-06-2024 Albumin [Mass/Vol] 3.9 g/dL Normal 3.5-5.0 [facility] Comment on above: Performed By: #### L AB980 #### [facility] (DEFAULT) [address] [place] [address] ALP [Catalytic activity/Vol] 50 U/L Normal 32-126 [facility] Comment on above: Performed By: #### L AB980 #### [facility] (DEFAULT) [address] [place] [address] ALT [Catalytic activity/Vol] 11 U/L Normal 10-52 [facility] Comment on above: Performed By: #### L AB980 #### [facility] (DEFAULT) [address] [place] [address] Anion gap [Moles/Vol] 10 mmol/L Normal 7-17 [facility] Comment on above: Performed By: #### L AB980 #### [facility] (DEFAULT) [address] [place] [address] AST [Catalytic activity/Vol] 13 U/L Normal 10-39 [facility] Comment on above: Performed By: #### L AB980 #### [facility] (DEFAULT) [address] [place] [address] Bilirubin [Mass/Vol] 0.5 mg/dL Normal <1.5 [facility] Comment on above: Performed By: #### L AB980 #### [facility] (DEFAULT) [address] [place] [address] Calcium [Mass/Vol] 9.2 mg/dL Normal 8.6-10.5 [facility] Comment on above: Performed By: #### L AB980 #### [facility] (DEFAULT) [address] [place] [address] Chloride [Moles/Vol] 104 mmol/L Normal 98-108 [facility] Comment on above: Performed By: #### L AB980 #### [facility] (DEFAULT) [address] [place] [address] CO2 [Moles/Vol] 30 mmol/L Normal 21-31 [facility] Comment on above: Performed By: #### L AB980 #### [facility] (DEFAULT) [address] [place] [address] Creatinine [Mass/Vol] 0.97 mg/dL Normal 0.70-1.30 [facility] Comment on above: Performed By: #### L AB980 #### [facility] (DEFAULT) [address] [place] [address] GFR/1.73 sq M.predicted among non-blacks MDRD (S/P/Bld) [Vol rate/Area] 86 mL/min/{1.73_m2} Normal >=60 [facility] Comment on above: Result Comment: Repo rted eGFR is based on the CKD-EPI 2020 equation using creatinine, age, and sex. Performed By: #### L AB980 #### [facility] (DEFAULT) [address] [place] [address] Glucose [Mass/Vol] 101 mg/dL High 70-99 [facility] Comment on above: Performed By: #### L AB980 #### [facility] (DEFAULT) [address] [place] [address] Osmolality [Osmolality] 295 mosm/kg Normal 278-305 [facility] Comment on above: Performed By: #### L AB980 #### [facility] (DEFAULT) [address] [place] [address] Potassium [Moles/Vol] 4.1 mmol/L Normal 3.5-5.0 [facility] Comment on above: Performed By: #### L AB980 #### [facility] (DEFAULT) [address] [place] [address] Protein [Mass/Vol] 6.1 g/dL Low 6.4-8.3 [facility] Comment on above: Performed By: #### L AB980 #### [facility] (DEFAULT) [address] [place] [address] Sodium [Moles/Vol] 140 mmol/L Normal 135-145 [facility] Comment on above: Performed By: #### L AB980 #### [facility] (DEFAULT) [address] [place] [address] Urea nitrogen [Mass/Vol] 18 mg/dL Normal 7-25 [facility] Comment on above: Performed By: #### L AB980 #### [facility] (DEFAULT) [address] [place] [address] Urea nitrogen/Creatinine [Mass ratio] 19 mg/mg Normal [facility] Comment on above: Performed By: #### L AB980 #### [facility] (DEFAULT) [address] [place] [address] IMMUNOFIXATION SERUMon 09-06 Monoclonal 1 17.4 mg/dL High <=0.0 [facility] Comment on above: Performed By: #### S IMFXB, PSE, PSD #### [facility] (DEFAULT) [address] [address] REVIEWED BY: Tomás Elena MD Normal [facility] Comment on above: Performed By: #### S IMFXB, PSE, PSD #### [facility] (DEFAULT) [address] [address] Serum Immunofixation Minute amount of Ig G kappa monoclonal protein is present. Normal [facility] Comment on above: Performed By: #### S IMFXB, PSE, PSD #### [facility] (DEFAULT) [address] [address] IMMUNOGLOBULIN FREE CHAINSon 09-06-2024 [facility] Free Light Chains 4.5 mg/L Normal 3.9-26.0 [facility] Comment on above: Order Comment: Undet ected antigen excess is a rare event but cannot be excluded. If these free light chain results do not agree with other clinical or laboratory findings, or if the sample is from a patient that has previously demonstrated antigen excess, the result must be checked by retesting at a higher sample dilution. Results should always be interpreted in conjunction with other laboratory tests and clinical evidence; any anomalies should be discussed with the testing laboratory. Performed By: #### I FLC #### [facility] (DEFAULT) [address] [address] [place]/Lambda Ratio 1.88 High 0.51-1.72 [facility] Comment on above: Order Comment: Undet ected antigen excess is a rare event but cannot be excluded. If these free light chain results do not agree with other clinical or laboratory findings, or if the sample is from a patient that has previously demonstrated antigen excess, the result must be checked by retesting at a higher sample dilution. Results should always be interpreted in conjunction with other laboratory tests and clinical evidence; any anomalies should be discussed with the testing laboratory. Performed By: #### I FLC #### [facility] (DEFAULT) [address] [address] Lambda Free Light Chains 2.4 mg/L Low 6.4-22.1 [facility] Comment on above: Order Comment: Undet ected antigen excess is a rare event but cannot be excluded. If these free light chain results do not agree with other clinical or laboratory findings, or if the sample is from a patient that has previously demonstrated antigen excess, the result must be checked by retesting at a higher sample dilution. Results should always be interpreted in conjunction with other laboratory tests and clinical evidence; any anomalies should be discussed with the testing laboratory. Performed By: #### I FLC #### [facility] (DEFAULT) [address] [place] [address] IMMUNOGLOBULINS IGG IGA IGMo n 09-06-2024 IgA [Mass/Vol] 23 mg/dL Low 90-410 [facility] Comment on above: Performed By: #### Q IMM #### [facility] (DEFAULT) [address] [place] [address] IgG [Mass/Vol] 367 mg/dL Low 600-1560 [facility] Comment on above: Performed By: #### Q IMM #### [facility] (DEFAULT) [address] [place] [address] IGM < Low 30-360 [facility] Comment on above: Performed By: #### Q IMM #### [facility] (DEFAULT) [address] [place] [address] PROTEIN ELECTROPHORESISon Albumin [Mass/Vol] 3.8 g/dL Normal 3.5-5.0 [facility] Comment on above: Performed By: #### S IMFXB, PSE, PSD #### [facility] (DEFAULT) [address] [place] [address] Alpha 1 0.3 g/dL Normal 0.2-0.4 [facility] Comment on above: Performed By: #### S IMFXB, PSE, PSD #### [facility] (DEFAULT) [address] [place] [address] Alpha 2 0.8 g/dL Normal 0.5-1.0 [facility] Comment on above: Performed By: #### S IMFXB, PSE, PSD #### [facility] (DEFAULT) [address] [address] Beta 0.6 g/dL Normal 0.5-1.1 [facility] Comment on above: Performed By: #### S IMFXB, PSE, PSD #### [facility] (DEFAULT) [address] [address] Gamma 0.3 g/dL Low 0.6-1.5 [facility] Comment on above: Performed By: #### S IMFXB, PSE, PSD #### [facility] (DEFAULT) [address] [place] [address] Interpretation By: Tomás Elena MD Normal [facility] Comment on above: Performed By: #### S IMFXB PSE, PSD #### [facility] (DEFAULT) [address] [address] Spe Interpretation There is a zone of restriction in the gamma region with decreased remaining polyclonal immunoglobulins. This pattern suggests monoclonal or oligoclonal proteins that may occur in chronic inflammatory diseases (e.g., of liver), or may be idiopathic, or may represent a monoclonal gammopathy. Normal [facility] Comment on above: Performed By: #### S IMFXB, PSE, PSD #### [facility] (DEFAULT) [address] [address] SPE SERUM TOTAL PROTEINon Protein [Mass/Vol] 5.8 g/dL Low 6.4-8.3 [facility] Comment on above: Performed By: #### S IMFXB, PSE, PSD #### [facility] (DEFAULT) [address] [address] Plastic Surgery Visit Report on 08-31-2024 Plastic Surgery Visit Report Normal [facility] Erythrocyte Sed Rateon 08-22 SED RATE Normal 0-20 [facility] Comment on above: Result Comment: Canc elled via OM: Order cancelled - Patient discharged Performed By: #### L 101.9900 ####[facility] [address] [place], [address] ELINA + Protein Elect, Serumon 08-21-2024 Albumin [Mass/Vol] 3.1 g/dL Normal 2.9-4.4 [facility] Comment on above: Order Comment: PLEAS E ADD ON TO BLOOD IN LAB. THANK YOU!!NUNKNOWN Performed By: #### L 3130.0010, L3100.3425 ####[facility] [address] [place], [address] Albumin/Globulin [Mass ratio] 1.3 {ratio} Normal 0.7-1.7 [facility] Comment on above: Order Comment: PLEAS E ADD ON TO BLOOD IN LAB. THANK YOU!!NUNKNOWN Performed By: #### L 3130.0010, L3100.3425 ####[facility] [address] [place], [address] PBYYB-2-VULI 0.2 g/dL Normal 0.0-0.4 [facility] Comment on above: Order Comment: PLEAS E ADD ON TO BLOOD IN LAB. THANK YOU!!NUNKNOWN Performed By: #### L 3130.0010, L3100.3425 ####[facility] [address] [place], [address] WFGZG-8-GPGF 0.9 g/dL Normal 0.4-1.0 [facility] Comment on above: Order Comment: PLEAS E ADD ON TO BLOOD IN LAB. THANK YOU!!NUNKNOWN Performed By: #### L 3130.0010, L3100.3425 ####[facility] [address] [place], [address] BETA GLOBULIN 0.8 g/dL Normal 0.7-1.3 [facility] Comment on above: Order Comment: PLEAS E ADD ON TO BLOOD IN LAB. THANK YOU!!NUNKNOWN Performed By: #### L 3130.0010, L3100.3425 ####[facility] [address] [place], [address] GAMMA GLOBULIN 0.4 g/dL Normal 0.4-1.8 [facility] Comment on above: Order Comment: PLEAS E ADD ON TO BLOOD IN LAB. THANK YOU!!NUNKNOWN Performed By: #### L 3130.0010, L3100.3425 ####[facility] [address] [place], [address] Globulin (S) [Mass/Vol] 2.4 g/dL Normal 2.2-3.9 [facility] Comment on above: Order Comment: PLEAS E ADD ON TO BLOOD IN LAB. THANK YOU!!NUNKNOWN Performed By: #### L 3130.0010, L3100.3425 ####[facility] [address] [place], [address] ELINA RESULT,S Comment Normal . [facility] Comment on above: Order Comment: PLEAS E ADD ON TO BLOOD IN LAB. THANK YOU!!NUNKNOWN Result Comment: No m onoclonality detected. Performed By: #### L 3130.0010, L3100.3425 ####[facility] [address] [place], [address] IMMUNOGLOB A QN 22 mg/dL Low 61-437 [facility] Comment on above: Order Comment: PLEAS E ADD ON TO BLOOD IN LAB. THANK YOU!!NUNKNOWN Result Comment: Resu lt confirmed on concentration. Performed By: #### L 3130.0010, L3100.3425 ####[facility] [address] [place], [address] IMMUNOGLOB G QN 424 mg/dL Low 603-1613 [facility] Comment on above: Order Comment: PLEAS E ADD ON TO BLOOD IN LAB. THANK YOU!!NUNKNOWN Performed By: #### L 3130.0010, L3100.3425 ####[facility] [address] [place], [address] IMMUNOGLOB M QN 8 mg/dL Low 20-172 [facility] Comment on above: Order Comment: PLEAS E ADD ON TO BLOOD IN LAB. THANK YOU!!NUNKNOWN Result Comment: Resu lt confirmed on concentration. Performed By: #### L 3130.0010, L3100.3425 ####[facility] [address] [place], [address] M-Raúl Not Observed Normal Not Observed [facility] Comment on above: Order Comment: PLEAS E ADD ON TO BLOOD IN LAB. THANK YOU!!NUNKNOWN Performed By: #### L 3130.0010, L3100.3425 ####[facility] [address] [place], [address] NOTE: Comment Normal . [facility] Comment on above: Order Comment: PLEAS E ADD ON TO BLOOD IN LAB. THANK YOU!!NUNKNOWN Result Comment: Prot ein electrophoresis scan will follow via computer,mail, or lean leader delivery. Performed By: #### L 3130.0010, L3100.3425 ####[facility] [address] [place], [address] Protein [Mass/Vol] 5.5 g/dL Low 6.0-8.5 [facility] Comment on above: Order Comment: PLEAS E ADD ON TO BLOOD IN LAB. THANK YOU!!NUNKNOWN Performed By: #### L 3130.0010, L3100.3425 ####[facility] [address] [place], [address] [place] Lambda Light Chainson 08-21-2024 FR KAPPA LT CHN 4.9 mg/L Normal 3.3-19.4 [facility] Comment on above: Order Comment: PLEAS E ADD ON TO BLOOD IN LAB. THANK YOU!!NUNKNOWN Performed By: #### L 3130.0010, L3100.3425 ####[facility] [address] [place], [address] FR LAMBDA LT CH 3.1 mg/L Abnormal 5.7-26.3 [facility] Comment on above: Order Comment: PLEAS E ADD ON TO BLOOD IN LAB. THANK YOU!!NUNKNOWN Performed By: #### L 3130.0010, L3100.3425 ####[facility] [address] [place], [address] KAPPA/LAMBDA % 1.58 Normal 0.26-1.65 [facility] Comment on above: Order Comment: PLEAS E ADD ON TO BLOOD IN LAB. THANK YOU!!NUNKNOWN Result Comment: Perf ormed at: [facility] [address] Director: Micky Arreola PhD, Phone: [phone] Performed By: #### L 3130.0010, L3113.3426 ####[facility] [address] [place], [address] CBC W/Diff, Automatedon 11 Absolute Lymph 0.55 X10 3/uL Low 0.83-4.51 [facility] Comment on above: Performed By: #### L 100.0100, L500.4050 ####[facility] [address] [place], [address] Absolute Neut 3.5 X10 3/uL Normal 2.0-7.7 [facility] Comment on above: Performed By: #### L 100.0100, L500.4050 ####[facility] [address] [place], [address] Basophils/100 WBC (Bld) 1.0 % Normal 0-1 [facility] Comment on above: Performed By: #### L 100.0100, L500.4050 ####[facility] [address] [place], [address] Eosinophils/100 WBC (Bld) 4.1 % Normal 0-5 [facility] Comment on above: Performed By: #### L 100.0100, L500.4050 ####[facility] [address] [place], [address] Erythrocyte distribution width (RBC) [Ratio] 14.9 % High 11.6-14.6 [facility] Comment on above: Performed By: #### L 100.0100, L500.4050 ####[facility] [address] [place], [address] Hematocrit (Bld) [Volume fraction] 36.2 % Low 40-54 [facility] Comment on above: Performed By: #### L 100.0100, L500.4050 ####[facility] [address] [place], [address] Hemoglobin (Bld) [Mass/Vol] 11.7 g/dL Low 13.0-16.5 [facility] Comment on above: Performed By: #### L 100.0100, L500.4050 ####[facility] [address] [place], [address] IG% 0.400 Normal 0.0-0.9 [facility] Comment on above: Result Comment: IG% - Immature Granulocytes (promyelocytes, myelocytes andmetamyelocytes) > 1% indicates that a LEFT SHIFT is Present. Performed By: #### L 100.0100, L500.4050 ####[facility] [address] [place], [address] Lymphocytes/100 WBC (Bld) 11.2 % Low 19-41 [facility] Comment on above: Performed By: #### L 100.0100, L500.4050 ####[facility] [address] [place], [address] MCH (RBC) [Entitic mass] 29.3 pg Normal 27.0-32.0 [facility] Comment on above: Performed By: #### L 100.0100, L500.4050 ####[facility] [address] [place], [address] MCHC (RBC) [Mass/Vol] 32.3 g/dL Normal 32-36 [facility] Comment on above: Performed By: #### L 100.0100, L500.4050 ####[facility] [address] [place], [address] MCV (RBC) [Entitic vol] 90.5 fL Normal 80-94 [facility] Comment on above: Performed By: #### L 100.0100, L500.4050 ####[facility] [address] [place], [address] Monocytes/100 WBC (Bld) 11.2 % High 0-10 [facility] Comment on above: Performed By: #### L 100.0100, L500.4050 ####[facility] [address] [place], [address] Neutrophils/100 WBC (Bld) 72.1 % High 47-70 [facility] Comment on above: Performed By: #### L 100.0100, L500.4050 ####[facility] [address] [place], [address] Nucleated RBC (Bld) [#/Vol] 0 10*3/uL Normal 0-5 [facility] Comment on above: Performed By: #### L 100.0100, L500.4050 ####[facility] [address] [place], [address] Platelet mean volume (Bld) [Entitic vol] 9.9 fL Normal 6.2-12.0 [facility] Comment on above: Performed By: #### L 100.0100, L500.4050 ####[facility] [address] [place], [address] Platelets (Bld) [#/Vol] 173 10*3/uL Normal 150-450 [facility] Comment on above: Performed By: #### L 100.0100, L500.4050 ####[facility] [address] [place], [address] RBC (Bld) [#/Vol] 4.00 10*6/uL Low 4.6-6.2 [facility] Comment on above: Performed By: #### L 100.0100, L500.4050 ####[facility] [address] [place], [address] RDW SD 49.6 fl High 35.1-43.9 [facility] Comment on above: Performed By: #### L 100.0100, L500.4050 ####[facility] [address] [place], [address] WBC (Bld) [#/Vol] 4.9 10*3/uL Normal 4.4-11.0 [facility] Comment on above: Performed By: #### L 100.0100, L500.4050 ####[facility] [address] [place], [address] Comprehensive Metabolic Prof [facility] 08-17-2024 Albumin [Mass/Vol] 3.3 g/dL Normal 3.2-5.0 [facility] Comment on above: Performed By: #### L 100.0100, L500.4050 ####[facility] [address] [place], [address] Albumin/Globulin [Mass ratio] 1.2 {ratio} Normal 0.9-2.4 [facility] Comment on above: Performed By: #### L 100.0100, L500.4050 ####[facility] [address] [place], [address] ALK P 50 U/L Normal 45-117 [facility] Comment on above: Performed By: #### L 100.0100, L500.4050 ####[facility] [address] [place], [address] ALT [Catalytic activity/Vol] 17 U/L Normal 16-61 [facility] Comment on above: Performed By: #### L 100.0100, L500.4050 ####[facility] [address] [place], [address] AST [Catalytic activity/Vol] 14 U/L Low 15-37 [facility] Comment on above: Performed By: #### L 100.0100, L500.4050 ####[facility] [address] [place], [address] Bilirubin [Mass/Vol] 0.30 mg/dL Normal 0.20-1.00 [facility] Comment on above: Result Comment: For patients on eltrombopag therapy, use of Dimension Earle TBIL is not recommended. Performed By: #### L 100.0100, L500.4050 ####[facility] [address] [place], [address] BUN/CRE 15.2 RATIO Normal 10-20 [facility] Comment on above: Performed By: #### L 100.0100, L500.4050 ####[facility] [address] [place], [address] CA,Total 9.1 mg/dL Normal 8.5-10.1 [facility] Comment on above: Performed By: #### L 100.0100, L500.4050 ####[facility] [address] [place], [address] Chloride [Moles/Vol] 105 mmol/L Normal 98-107 [facility] Comment on above: Performed By: #### L 100.0100, L500.4050 ####[facility] [address] [place], [address] CO2 [Moles/Vol] 27.0 mmol/L Normal 21.0-32.0 [facility] Comment on above: Performed By: #### L 100.0100, L500.4050 ####[facility] [address] [place], [address] Creatinine [Mass/Vol] 1.25 mg/dL Normal 0.70-1.30 [facility] Comment on above: Result Comment: The validity of the calculated GFR GFRAA in patients over70 years has not been determined. Clinical correlation isessential. Performed By: #### L 100.0100, L500.4050 ####[facility] [address] [place], [address] ECRCL 56.77 ml/min Normal [facility] Comment on above: Performed By: #### L 100.0100, L500.4050 ####[facility] [address] [place], [address] EST GFR - AA 74 mL/min Normal >60 [facility] Comment on above: Result Comment: Afri can Bruneian GFR Calc Performed By: #### L 100.0100, L500.4050 ####[facility] [address] [place], [address] GAP 8 Normal 5-15 [facility] Comment on above: Performed By: #### L 100.0100, L500.4050 ####[facility] [address] [place], [address] GFR/1.73 sq M.predicted among non-blacks MDRD (S/P/Bld) [Vol rate/Area] 61 mL/min/{1.73_m2} Normal >60 [facility] Comment on above: Result Comment: Non- GFR Calc Performed By: #### L 100.0100, L500.4050 ####[facility] [address] [place], [address] Globulin (S) [Mass/Vol] 2.8 g/dL Normal 2.2-4.2 [facility] Comment on above: Performed By: #### L 100.0100, L500.4050 ####[facility] [address] [place], [address] Glucose [Mass/Vol] 148 mg/dL High 74-106 [facility] Comment on above: Result Comment: Fast ing Glucose result greater than or equal to 126 mg/dLsuggests DIABETES MELLITUS per A.D.A. criteria. Performed By: #### L 100.0100, L500.4050 ####[facility] [address] [place], [address] Potassium [Moles/Vol] 3.9 mmol/L Normal 3.5-5.1 [facility] Comment on above: Performed By: #### L 100.0100, L500.4050 ####[facility] [address] [place], [address] Sodium [Moles/Vol] 140 mmol/L Normal 136-145 [facility] Comment on above: Performed By: #### L 100.0100, L500.4050 ####[facility] [address] [place], [address] T PROT 6.1 g/dL Low 6.4-8.2 [facility] Comment on above: Performed By: #### L 100.0100, L500.4050 ####[facility] [address] [place], [address] Urea nitrogen [Mass/Vol] 19 mg/dL High 7-18 [facility] Comment on above: Performed By: #### L 100.0100, L500.4050 ####[facility] [address] [place], [address] Oncology Visit Reporton 07-29 Oncology Visit Report Normal [facility] Basic Metabolic Profile (BMP )on 08-15-2024 BUN Normal 7-18 [facility] Comment on above: Result Comment: Canc elled via OM: Order cancelled - Patient discharged Performed By: #### L 500.2500, L101.9900 ####[facility] [address] [place], [address] BUN/CRE Normal 10-20 [facility] Comment on above: Result Comment: Canc elled via OM: Order cancelled - Patient discharged Performed By: #### L 500.2500, L101.9900 ####[facility] [address] [place], [address] CA,Total Normal 8.5-10.1 [facility] Comment on above: Result Comment: Canc elled via OM: Order cancelled - Patient discharged Performed By: #### L 500.2500, L101.9900 ####[facility] [address] [place], [address] CL Normal 98-107 [facility] Comment on above: Result Comment: Canc elled via OM: Order cancelled - Patient discharged Performed By: #### L 500.2500, L101.9900 ####[facility] [address] [place], [address] CO2 Normal 21.0-32.0 [facility] Comment on above: Result Comment: Canc elled via OM: Order cancelled - Patient discharged Performed By: #### L 500.2500, L101.9900 ####[facility] [address] [place], [address] CREAT,SERUM Normal 0.70-1.30 [facility] Comment on above: Result Comment: Canc elled via OM: Order cancelled - Patient discharged Performed By: #### L 500.2500, L101.9900 ####[facility] [address] [place], [address] EST GFR Normal >60 [facility] Comment on above: Result Comment: Canc elled via OM: Order cancelled - Patient discharged Performed By: #### L 500.2500, L101.9900 ####[facility] [address] [place], [address] EST GFR - AA Normal >60 [facility] Comment on above: Result Comment: Canc elled via OM: Order cancelled - Patient discharged Performed By: #### L 500.2500, L101.9900 ####[facility] [address] [place], [address] GAP Normal 5-15 [facility] Comment on above: Result Comment: Canc elled via OM: Order cancelled - Patient discharged Performed By: #### L 500.2500, L101.9900 ####[facility] [address] [place], [address] GLU Normal 74-106 [facility] Comment on above: Result Comment: Canc elled via OM: Order cancelled - Patient discharged Performed By: #### L 500.2500, L101.9900 ####[facility] [address] [place], [address] Potassium Normal 3.5-5.1 [facility] Comment on above: Result Comment: Canc elled via OM: Order cancelled - Patient discharged Performed By: #### L 500.2500, L101.9900 ####[facility] [address] [place], [address] Basic Metabolic Profile (BMP) Normal 136-145 [facility] Comment on above: Result Comment: Canc elled via OM: Order cancelled - Patient discharged Performed By: #### L 500.2500, L101.9900 ####[facility] [address] [place], [address] Erythrocyte Sed Rateon 08-15 SED RATE Normal 0-20 [facility] Comment on above: Result Comment: Canc elled via OM: Order cancelled - Patient discharged Performed By: #### L 500.2500, L101.9900 ####[facility] [address] [place], [address] Acid Fast Bacillus Cultureon 08-14-2024 tAFBC [facility] Comment on above: Performed By: #### M 100.4001, M300.2000, M600.2200, M300.3000, M100.3000, M100.2000, M600.1999 ####[facility] [address] [place], [address] tAFBC [facility] Comment on above: Performed By: #### M 300.3000, M300.2000 ####[facility] [address] [place], [address] Acid Fast Bacillus Smear/Flu oron 08-14-2024 tafb Normal [facility] Comment on above: Performed By: #### M 100.4001, M300.2000, M600.2200, M300.3000, M100.3000, M100.2000, M600.2000 ####[facility] [address] [place], [address] tafb Normal [facility] Comment on above: Performed By: #### M 300.3000, M300.2000 ####[facility] [address] [place], [address] Culture, Fungus 8482on 08-14 CUF Normal [facility] Comment on above: Performed By: #### M 100.4001, M300.2000, M600.2200, M300.3000, M100.3000, M100.2000, M600.2000 ####[facility] [address] [place], [address] CUF [facility] Comment on above: Performed By: #### M 100.3000, M600.2200, M100.2000, M100.4001, M600.1999 ####[facility] [address] [place], [address] Fungus Stain 8136on 08-14-20 [facility] Comment on above: Performed By: #### M 100.4001, M300.2000, M600.2200, M300.3000, M100.3000, M100.2000, M600.2000 ####[facility] [address] [place], [address] [facility] Comment on above: Performed By: #### M 100.3000, M600.2200, M100.2000, M100.4001, M600.1999 ####[facility] [address] [place], [address] COVID 19 AG RAPID (JOHN Lenz)on 08-11-2024 SARS-CoV-2 (COVID-19) RNA GARTH+probe Ql (Unsp spec) [facility] Comment on above: Performed By: #### M 100.505 ####[facility] [address] [place], [address] SARS-CoV-2 (COVID-19) Ag IA. rapid Ql (Resp)Ordered By: Burt Kaba on 08-11-2024 SARS-CoV-2 Antigen (Rapid) [facility] Vancomycin trough [Mass/Vol] Ordered By: Burt Kaba on 08-11-2024 Vancomycin Level Trough 16.6 ug/mL High 5.0-15.0 [facility] Comment on above: VANCOMYCIN STANDARED DRUG THERAPY TROUGH LEVEL: 5.0 - 15.0 mg/L VANCOMYCIN HIGH INTENSITY THERAPY TROUGH LEVEL: 15.0 - 20.0 mg/L High Intensity therapy recommended for serious lifethreatening infections include:- Rwotucnlwr-Qvqdqvsgqfow-Rjwhtjzql (Ventilator/Healtcare Associated)-Sepsis PLEASE CONTACT PHARMACY SERVICES (#[id number]) FOR INTERPRETATIONOF RESULTS. Vancomycin, Trough Levelon 10-11-2023 VANCO, TROUGH 16.6 ug/mL High 5.0-15.0 [facility] Comment on above: Order Comment: Comme nts: Trough to be drawn 30 mins prior to scheduled [id number] Result Comment: VANC OMYCIN STANDARED DRUG THERAPY TROUGH LEVEL: 5.0 - 15.0 mg/LVANCOMYCIN HIGH INTENSITY THERAPY TROUGH LEVEL: 15.0 - 20.0 mg/LHigh Intensity therapy recommended for serious lifethreatening infections include:- Nymbxhaxyn-Jariefnlxdur-Xygsevpkc (Ventilator/Healtcare Associated)-SepsisPLEASE CONTACT PHARMACY SERVICES (#[id number]) FOR INTERPRETATIONOF RESULTS. Performed By: #### L 501.8820 ####[facility] [address] [place], [address] Absolute neutrophil countOrd ered By: Burt Kaba on 08-08-2024 Neutrophils (Bld) [#/Vol] 2.8 10*3/uL 2.0-7.7 [facility] Basic Metabolic Profile (BMP )on 08-08-2024 BUN/CRE 28.6 RATIO High 10-20 [facility] Comment on above: Performed By: #### L 100.0100, L101.9900, L500.2500 ####[facility] [address] [place], [address] CA,Total 8.9 mg/dL Normal 8.5-10.1 [facility] Comment on above: Performed By: #### L 100.0100, L101.9900, L500.2500 ####[facility] [address] [place], [address] Chloride [Moles/Vol] 107 mmol/L Normal 98-107 [facility] Comment on above: Performed By: #### L 100.0100, L101.9900, L500.2500 ####[facility] [address] [place], [address] CO2 [Moles/Vol] 29.0 mmol/L Normal 21.0-32.0 [facility] Comment on above: Performed By: #### L 100.0100, L101.9900, L500.2500 ####[facility] [address] [place], [address] Creatinine [Mass/Vol] 1.05 mg/dL Normal 0.70-1.30 [facility] Comment on above: Result Comment: The validity of the calculated GFR GFRAA in patients over70 years has not been determined. Clinical correlation isessential. Performed By: #### L 100.0100, L101.9900, L500.2500 ####[facility] [address] [place], [address] ECRCL 67.06 ml/min Normal [facility] Comment on above: Performed By: #### L 100.0100, L101.9900, L500.2500 ####[facility] [address] [place], [address] EST GFR - AA 91 mL/min Normal >60 [facility] Comment on above: Result Comment: Afri can [place]une[place] GFR Calc Performed By: #### L 100.0100, L101.9900, L500.2500 ####[facility] [address] [place], [address] GAP 7 Normal 5-15 [facility] Comment on above: Performed By: #### L 100.0100, L101.9900, L500.2500 ####[facility] [address] [place], [address] GFR/1.73 sq M.predicted among non-blacks MDRD (S/P/Bld) [Vol rate/Area] 75 mL/min/{1.73_m2} Normal >60 [facility] Comment on above: Result Comment: Non- GFR Calc Performed By: #### L 100.0100, L101.9900, L500.2500 ####[facility] [address] [place], [address] Glucose [Mass/Vol] 99 mg/dL Normal 74-106 [facility] Comment on above: Performed By: #### L 100.0100, L101.9900, L500.2500 ####[facility] [address] [place], [address] Potassium [Moles/Vol] 4.0 mmol/L Normal 3.5-5.1 [facility] Comment on above: Performed By: #### L 100.0100, L101.9900, L500.2500 ####[facility] [address] [place], [address] Sodium [Moles/Vol] 142 mmol/L Normal 136-145 [facility] Comment on above: Performed By: #### L 100.0100, L101.9900, L500.2500 ####[facility] [address] [place], [address] Urea nitrogen [Mass/Vol] 30 mg/dL High 7-18 [facility] Comment on above: Performed By: #### L 100.0100, L101.9900, L500.2500 ####[facility] [address] [place], [address] Basophil percentageOrdered B y: Burt Kaba on 08-08-2024 Basophils/100 WBC (Bld) 1.0 % 0-1 [facility] Blood urea nitrogen (BUN)/cr eatinine ratioOrdered By: Burt Kaba on 08-08-2024 Urea nitrogen/Creatinine [Mass ratio] 28.6 mg/mg High 10-20 [facility] CBC W/Diff, Automatedon 07-28 Absolute Lymph 0.42 X10 3/uL Low 0.83-4.51 [facility] Comment on above: Performed By: #### L 100.0100, L101.9900, L500.2500 ####[facility] [address] [place], [address] Absolute Neut 2.8 X10 3/uL Normal 2.0-7.7 [facility] Comment on above: Performed By: #### L 100.0100, L101.9900, L500.2500 ####[facility] [address] [place], [address] Basophils/100 WBC (Bld) 1.0 % Normal 0-1 [facility] Comment on above: Performed By: #### L 100.0100, L101.9900, L500.2500 ####[facility] [address] [place], [address] Eosinophils/100 WBC (Bld) 3.8 % Normal 0-5 [facility] Comment on above: Performed By: #### L 100.0100, L101.9900, L500.2500 ####[facility] [address] [place], [address] Erythrocyte distribution width (RBC) [Ratio] 14.8 % High 11.6-14.6 [facility] Comment on above: Performed By: #### L 100.0100, L101.9900, L500.2500 ####[facility] [address] [place], [address] Hematocrit (Bld) [Volume fraction] 31.8 % Low 40-54 [facility] Comment on above: Performed By: #### L 100.0100, L101.9900, L500.2500 ####[facility] [address] [place], [address] Hemoglobin (Bld) [Mass/Vol] 10.2 g/dL Low 13.0-16.5 [facility] Comment on above: Performed By: #### L 100.0100, L101.9900, L500.2500 ####[facility] [address] [place], [address] IG% 0.500 Normal 0.0-0.9 [facility] Comment on above: Result Comment: IG% - Immature Granulocytes (promyelocytes, myelocytes andmetamyelocytes) > 1% indicates that a LEFT SHIFT is Present. Performed By: #### L 100.0100, L101.9900, L500.2500 ####[facility] [address] [place], [address] Lymphocytes/100 WBC (Bld) 10.7 % Low 19-41 [facility] Comment on above: Performed By: #### L 100.0100, L101.9900, L500.2500 ####[facility] [address] [place], [address] MCH (RBC) [Entitic mass] 29.0 pg Normal 27.0-32.0 [facility] Comment on above: Performed By: #### L 100.0100, L101.9900, L500.2500 ####[facility] [address] [place], [address] MCHC (RBC) [Mass/Vol] 32.1 g/dL Normal 32-36 [facility] Comment on above: Performed By: #### L 100.0100, L101.9900, L500.2500 ####[facility] [address] [place], [address] MCV (RBC) [Entitic vol] 90.3 fL Normal 80-94 [facility] Comment on above: Performed By: #### L 100.0100, L101.9900, L500.2500 ####[facility] [address] [place], [address] Monocytes/100 WBC (Bld) 12.5 % High 0-10 [facility] Comment on above: Performed By: #### L 100.0100, L101.9900, L500.2500 ####[facility] [address] [place], [address] Neutrophils/100 WBC (Bld) 71.5 % High 47-70 [facility] Comment on above: Performed By: #### L 100.0100, L101.9900, L500.2500 ####[facility] [address] [place], [address] Nucleated RBC (Bld) [#/Vol] 0 10*3/uL Normal 0-5 [facility] Comment on above: Performed By: #### L 100.0100, L101.9900, L500.2500 ####[facility] [address] [place], [address] Platelet mean volume (Bld) [Entitic vol] 10.4 fL Normal 6.2-12.0 [facility] Comment on above: Performed By: #### L 100.0100, L101.9900, L500.2500 ####[facility] [address] [place], [address] Platelets (Bld) [#/Vol] 171 10*3/uL Normal 150-450 [facility] Comment on above: Performed By: #### L 100.0100, L101.9900, L500.2500 ####[facility] [address] [place], [address] RBC (Bld) [#/Vol] 3.52 10*6/uL Low 4.6-6.2 [facility] Comment on above: Performed By: #### L 100.0100, L101.9900, L500.2500 ####[facility] [address] [place], [address] RDW SD 48.6 fl High 35.1-43.9 [facility] Comment on above: Performed By: #### L 100.0100, L101.9900, L500.2500 ####[facility] [address] [place], [place], [address] WBC (Bld) [#/Vol] 3.9 10*3/uL Low 4.4-11.0 [facility] Comment on above: Performed By: #### L 100.0100, L101.9900, L500.2500 ####[facility] [address] [place], [place], [id number] Carbon dioxide measurementOr dered By: Burt Kaba on 08-08-2024 CO2 [Moles/Vol] 29.0 mmol/L 21.0-32.0 [facility] Chloride measurementOrdered By: Burt Kaba on 08-08-2024 Chloride [Moles/Vol] 107 mmol/L 98-107 [facility] Eosinophil percentageOrdered By: Burt Kaba on 08-08-2024 Eosinophils/100 WBC (Bld) 3.8 % 0-5 [facility] Erythrocyte Sed Rateon 08-08 SED RATE 10 mm/hr Normal 0-20 [facility] Comment on above: Performed By: #### L 100.0100, L101.9900, L500.2500 ####[facility] [address] [place], [place], [id number] Erythrocyte distribution wid th ratioOrdered By: Burt Kaba on 08-08-2024 Erythrocyte distribution width (RBC) [Ratio] 14.8 % High 11.6-14.6 [facility] Erythrocyte distribution wid th standard deviationOrdered By: Burt Kaba on 08-08-2024 Erythrocyte distribution width (RBC) [Entitic vol] 48.6 fL High 35.1-43.9 [facility] Erythrocyte sedimentation ra teOrdered By: Burt Kaba on 08-08-2024 ESR (Bld) [Velocity] 10 mm/h 0-20 [facility] Estimated glomerular filtrat ion rate (GFR) AmericanOrdered By: Burt Kaba on 08-08-2024 Estimated GFR (MDRD) Amer 91 mL/min >60 [facility] Comment on above: GFR Calc Estimation of creatinine gavin aranceOrdered By: Burt Kaba on 08-08-2024 Estimated Creatinine Clearance Calc 67.06 ml/min [facility] Glomerular filtration rate ( GFR) estimationOrdered By: Burt Pereraok on 08-08-2024 Estimated GFR (MDRD) Non-Af Amer 75 mL/min >60 [facility] Comment on above: Non- GFR Calc Glucose measurementOrdered B y: Burt Sesar on 08-08-2024 Glucose [Mass/Vol] 99 mg/dL 74-106 [facility] Hematocrit Auto (Bld) [Volum e fraction]Ordered By: Burt Kaba on 08-08-2024 Hematocrit (Bld) [Volume fraction] 31.8 % Low 40-54 [facility] Hemoglobin measurementOrdere d By: Burt Sesar 08-08-2024 Hemoglobin (Bld) [Mass/Vol] 10.2 g/dL Low 13.0-16.5 [facility] Immature granulocytes/100 WB C Auto (Bld)Ordered By: [facility] Immature granulocytes/100 WBC (Bld) 0.500 % 0.0-0.9 [facility] Comment on above: IG% - Immature Granu locytes (promyelocytes, myelocytes and metamyelocytes) > 1% indicates that a LEFT SHIFT is Present. Lymphocytes Auto (Unsp spec) [#/Vol]Ordered By: Burt Sesar on 08-08-2024 Lymphocytes (Bld) [#/Vol] 0.42 10*3/uL Low 0.83-4.51 [facility] Lymphocytes/100 WBC Auto (Un sp spec)Ordered By: Burt Kaba 08-08-2024 Lymphocytes/100 WBC (Bld) 10.7 % Low 19-41 [facility] MCV (mean corpuscular volume ) determinationOrdered By: Burt Kaba 08-08-2024 MCV (RBC) [Entitic vol] 90.3 fL 80-94 [facility] Mean corpuscular hemoglobin (MCH) determinationOrdered By: Burt Sesar 08-08-2024 MCH (RBC) [Entitic mass] 29.0 pg 27.0-32.0 [facility] Mean corpuscular hemoglobin concentration (MCHC) determinationOrdered By: Burt Kaba 08-08-2024 MCHC (RBC) [Mass/Vol] 32.1 g/dL 32-36 [facility] Mean platelet volume determi nationOrdered By: Burt Kaba on 08-08-2024 Platelet mean volume (Bld) [Entitic vol] 10.4 fL 6.2-12.0 [facility] Monocyte percentageOrdered B y: Burt Kaba on 08-08-2024 Monocytes/100 WBC (Bld) 12.5 % High 0-10 [facility] Neutrophil percentageOrdered By: Burt Kaba on 08-08-2024 Neutrophils/100 WBC (Bld) 71.5 % High 47-70 [facility] Nucleated red blood cell per centageOrdered By: Burt Kaba on 08-08-2024 Nucleated RBC/100 WBC (Bld) [Ratio] 0 % 0-5 [facility] Platelet countOrdered By: Julio C Kaba on 08-08-2024 Platelets (Bld) [#/Vol] 171 10*3/uL 150-450 [facility] Potassium measurementOrdered By: Burt Kaba on 08-08-2024 Potassium [Moles/Vol] 4.0 mmol/L 3.5-5.1 [facility] RBC Auto (Bld) [#/Vol]Ordere d By: Burt Kaba on 08-08-2024 RBC (Bld) [#/Vol] 3.52 10*6/uL Low 4.6-6.2 [facility] Serum anion gap measurementO rdered By: Burt Kaba 08-08-2024 Anion gap [Moles/Vol] 7 mmol/L 5-15 [facility] Serum or plasma calcium giovanny urement (mass/volume)Ordered By: Burt Kaba on 08-08-2024 Calcium [Mass/Vol] 8.9 mg/dL 8.5-10.1 [facility] Serum or plasma creatinine m easurement (mass/volume)Ordered By: Burt Kaba 08-08-2024 Creatinine [Mass/Vol] 1.05 mg/dL 0.70-1.30 [facility] Comment on above: The validity of the calculated GFR & GFRAA in patients over 70 years has not been determined. Clinical correlation is essential. Serum or plasma urea nitroge n measurement (mass/volume)Ordered By: Burt Kaba on 08-08-2024 Urea nitrogen [Mass/Vol] 30 mg/dL High 7-18 [facility] Sodium levelOrdered By: Burt Kaba on 08-08-2024 Sodium [Moles/Vol] 142 mmol/L 136-145 [facility] White blood cell (WBC) count Ordered By: Burt Kaba on 08-08-2024 WBC (Bld) [#/Vol] 3.9 10*3/uL Low 4.4-11.0 [facility] Vancomycin, Trough Levelon 1 10-07-2023 VANCO, TROUGH 16.3 ug/mL High 5.0-15.0 [facility] Comment on above: Order Comment: Comme nts: Trough to be drawn 30 mins prior to scheduled [id number] Result Comment: VANC OMYCIN STANDARED DRUG THERAPY TROUGH LEVEL: 5.0 - 15.0 mg/LVANCOMYCIN HIGH INTENSITY THERAPY TROUGH LEVEL: 15.0 - 20.0 mg/LHigh Intensity therapy recommended for serious lifethreatening infections include:- Dlwemoizei-Jklkkigsdjse-Bsaxawkak (Ventilator/Healtcare Associated)-SepsisPLEASE CONTACT PHARMACY SERVICES (#[id number]) FOR INTERPRETATIONOF RESULTS. Performed By: #### L 501.8820 ####[facility] [address] [place], [address] Vancomycin, Trough Levelon 1 10-03-2023 VANCO, TROUGH 15.5 ug/mL High 5.0-15.0 [facility] Comment on above: Order Comment: Comme nts: Trough to be drawn 30 mins prior to scheduled [id number] Result Comment: VANC OMYCIN STANDARED DRUG THERAPY TROUGH LEVEL: 5.0 - 15.0 mg/LVANCOMYCIN HIGH INTENSITY THERAPY TROUGH LEVEL: 15.0 - 20.0 mg/LHigh Intensity therapy recommended for serious lifethreatening infections include:- Lhaqnhabxh-Wmlrpmrimqyh-Oqlnftiwe (Ventilator/Healtcare Associated)-SepsisPLEASE CONTACT PHARMACY SERVICES (#[id number]) FOR INTERPRETATIONOF RESULTS. Performed By: #### L 501.8820 ####[facility] [address] [facility] [place], [place], [id number] Basic Metabolic Profile (BMP )on 08-01-2024 BUN/CRE 30.5 RATIO High 10-20 [facility] Comment on above: Performed By: #### L 100.0100, L500.2500, L101.9900 ####[facility] [address] [place], [address] CA,Total 9.2 mg/dL Normal 8.5-10.1 [facility] Comment on above: Performed By: #### L 100.0100, L500.2500, L101.9900 ####[facility] [address] [place], [address] Chloride [Moles/Vol] 106 mmol/L Normal 98-107 [facility] Comment on above: Performed By: #### L 100.0100, L500.2500, L101.9900 ####[facility] [address] [place], [address] CO2 [Moles/Vol] 30.0 mmol/L Normal 21.0-32.0 [facility] Comment on above: Performed By: #### L 100.0100, L500.2500, L101.9900 ####[facility] [address] [place], [address] Creatinine [Mass/Vol] 0.98 mg/dL Normal 0.70-1.30 [facility] Comment on above: Result Comment: The validity of the calculated GFR GFRAA in patients over70 years has not been determined. Clinical correlation isessential. Performed By: #### L 100.0100, L500.2500, L101.9900 ####[facility] [address] [place], [address] ECRCL 70.84 ml/min Normal [facility] Comment on above: Performed By: #### L 100.0100, L500.2500, L101.9900 ####[facility] [address] [place], [address] EST GFR - AA 98 mL/min Normal >60 [facility] Comment on above: Result Comment: Afri can Bruneian GFR Calc Performed By: #### L 100.0100, L500.2500, L101.9900 ####[facility] [address] [place], [address] GAP 5 Normal 5-15 [facility] Comment on above: Performed By: #### L 100.0100, L500.2500, L101.9900 ####[facility] [address] [place], [address] GFR/1.73 sq M.predicted among non-blacks MDRD (S/P/Bld) [Vol rate/Area] 81 mL/min/{1.73_m2} Normal >60 [facility] Comment on above: Result Comment: Non- GFR Calc Performed By: #### L 100.0100, L500.2500, L101.9900 ####[facility] [address] [place], [address] Glucose [Mass/Vol] 98 mg/dL Normal 74-106 [facility] Comment on above: Performed By: #### L 100.0100, L500.2500, L101.9900 ####[facility] [address] [place], [address] Potassium [Moles/Vol] 3.8 mmol/L Normal 3.5-5.1 [facility] Comment on above: Performed By: #### L 100.0100, L500.2500, L101.9900 ####[facility] [address] [place], [address] Sodium [Moles/Vol] 141 mmol/L Normal 136-145 [facility] Comment on above: Performed By: #### L 100.0100, L500.2500, L101.9900 ####[facility] [address] [place], [address] Urea nitrogen [Mass/Vol] 30 mg/dL High 7-18 [facility] Comment on above: Performed By: #### L 100.0100, L500.2500, L101.9900 ####[facility] [address] [place], [address] CBC W/Diff, Automatedon 11-0 5-2024 Absolute Lymph 0.35 X10 3/uL Low 0.83-4.51 [facility] Comment on above: Performed By: #### L 100.0100, L500.2500, L101.9900 ####[facility] [address] [place], [address] Absolute Neut 2.1 X10 3/uL Normal 2.0-7.7 [facility] Comment on above: Performed By: #### L 100.0100, L500.2500, L101.9900 ####[facility] [address] [place], [address] Basophils/100 WBC (Bld) 0.7 % Normal 0-1 [facility] Comment on above: Performed By: #### L 100.0100, L500.2500, L101.9900 ####[facility] [address] [place], [address] Eosinophils/100 WBC (Bld) 3.7 % Normal 0-5 [facility] Comment on above: Performed By: #### L 100.0100, L500.2500, L101.9900 ####[facility] [address] [place], [address] Erythrocyte distribution width (RBC) [Ratio] 15.0 % High 11.6-14.6 [facility] Comment on above: Performed By: #### L 100.0100, L500.2500, L101.9900 ####[facility] [address] [place], [address] Hematocrit (Bld) [Volume fraction] 30.8 % Low 40-54 [facility] Comment on above: Performed By: #### L 100.0100, L500.2500, L101.9900 ####[facility] [address] [place], [address] Hemoglobin (Bld) [Mass/Vol] 9.7 g/dL Low 13.0-16.5 [facility] Comment on above: Performed By: #### L 100.0100, L500.2500, L101.9900 ####[facility] [address] [place], [address] IG% 0.300 Normal 0.0-0.9 [facility] Comment on above: Result Comment: IG% - Immature Granulocytes (promyelocytes, myelocytes andmetamyelocytes) > 1% indicates that a LEFT SHIFT is Present. Performed By: #### L 100.0100, L500.2500, L101.9900 ####[facility] [address] [place], [address] Lymphocytes/100 WBC (Bld) 11.6 % Low 19-41 [facility] Comment on above: Performed By: #### L 100.0100, L500.2500, L101.9900 ####[facility] [address] [place], [address] MCH (RBC) [Entitic mass] 28.5 pg Normal 27.0-32.0 [facility] Comment on above: Performed By: #### L 100.0100, L500.2500, L101.9900 ####[facility] [address] [place], [address] MCHC (RBC) [Mass/Vol] 31.5 g/dL Low 32-36 [facility] Comment on above: Performed By: #### L 100.0100, L500.2500, L101.9900 ####[facility] [address] [place], [address] MCV (RBC) [Entitic vol] 90.6 fL Normal 80-94 [facility] Comment on above: Performed By: #### L 100.0100, L500.2500, L101.9900 ####[facility] [address] [place], [address] Monocytes/100 WBC (Bld) 15.3 % High 0-10 [facility] Comment on above: Performed By: #### L 100.0100, L500.2500, L101.9900 ####[facility] [address] [place], [address] Neutrophils/100 WBC (Bld) 68.4 % Normal 47-70 [facility] Comment on above: Performed By: #### L 100.0100, L500.2500, L101.9900 ####[facility] [address] [place], [address] Nucleated RBC (Bld) [#/Vol] 0 10*3/uL Normal 0-5 [facility] Comment on above: Performed By: #### L 100.0100, L500.2500, L101.9900 ####[facility] [address] [place], [address] Platelet mean volume (Bld) [Entitic vol] 10.2 fL Normal 6.2-12.0 [facility] Comment on above: Performed By: #### L 100.0100, L500.2500, L101.9900 ####[facility] [address] [place], [address] Platelets (Bld) [#/Vol] 138 10*3/uL Low 150-450 [facility] Comment on above: Performed By: #### L 100.0100, L500.2500, L101.9900 ####[facility] [address] [place], [address] RBC (Bld) [#/Vol] 3.40 10*6/uL Low 4.6-6.2 [facility] Comment on above: Performed By: #### L 100.0100, L500.2500, L101.9900 ####[facility] [address] [place], [address] RDW SD 49.7 fl High 35.1-43.9 [facility] Comment on above: Performed By: #### L 100.0100, L500.2500, L101.9900 ####[facility] [address] [place], [address] WBC (Bld) [#/Vol] 3.0 10*3/uL Low 4.4-11.0 [facility] Comment on above: Performed By: #### L 100.0100, L500.2500, L101.9900 ####[facility] [address] [place], [address] Erythrocyte Sed Rateon 08-01 SED RATE 15 mm/hr Normal 0-20 [facility] Comment on above: Performed By: #### L 100.0100, L500.2500, L101.9900 ####[facility] [address] [place], [address] Vancomycin, Trough Levelon 09-29-2023 VANCO, TROUGH 14.6 ug/mL Normal 5.0-15.0 [facility] Comment on above: Order Comment: Comme nts: Trough to be drawn 30 mins prior to scheduled [id number] Result Comment: VANC OMYCIN STANDARED DRUG THERAPY TROUGH LEVEL: 5.0 - 15.0 mg/LVANCOMYCIN HIGH INTENSITY THERAPY TROUGH LEVEL: 15.0 - 20.0 mg/LHigh Intensity therapy recommended for serious lifethreatening infections include:- Jlbfmqobfz-Dwhpeuwwlwlc-Dcfxjbirg (Ventilator/Healtcare Associated)-SepsisPLEASE CONTACT PHARMACY SERVICES (#[id number]) FOR INTERPRETATIONOF RESULTS. Performed By: #### L 501.8820 ####[facility] [address] [place], [address] Vancomycin, Trough Levelon 1 09-27-2023 VANCO, TROUGH 14.7 ug/mL Normal 5.0-15.0 [facility] Comment on above: Order Comment: Comme nts: Trough to be drawn 30 mins prior to scheduled doseDRAW DELAYED, PT. IN [id number] Result Comment: VANC OMYCIN STANDARED DRUG THERAPY TROUGH LEVEL: 5.0 - 15.0 mg/LVANCOMYCIN HIGH INTENSITY THERAPY TROUGH LEVEL: 15.0 - 20.0 mg/LHigh Intensity therapy recommended for serious lifethreatening infections include:- Rzzgyqqdnh-Zphnvrfvbojc-Nuoyolprn (Ventilator/Healtcare Associated)-SepsisPLEASE CONTACT PHARMACY SERVICES (#[id number]) FOR INTERPRETATIONOF RESULTS. Performed By: #### L 501.8822 ####[facility] [address] [place], [address] HH, Hemoglobin AND Hematocri ton 07-27-2024 Hematocrit (Bld) [Volume fraction] 28.6 % Low 40-54 [facility] Comment on above: Performed By: #### L 100.0600 ####[facility] [address] [place], [address] Hemoglobin (Bld) [Mass/Vol] 9.0 g/dL Low 13.0-16.5 [facility] Comment on above: Performed By: #### L 100.0600 ####[facility] [address] [place], [address] Culture, Fungus 8482on 07-26 [facility] Comment on above: Performed By: #### M 600.2200, M600.2000, M100.2000, M100.3000, M100.4001 ####[facility] [address] [place], [address] Fungus Stain 8136on 07-26-20 24 FUNST Normal [facility] Comment on above: Performed By: #### M 600.2200, M600.2000, M100.2000, M100.3000, M100.4001 ####[facility] [address] [place], [address] Vancomycin, Trough Levelon VANCO, TROUGH 16.4 ug/mL High 5.0-15.0 [facility] Comment on above: Order Comment: 2100 Result Comment: VANC OMYCIN STANDARED DRUG THERAPY TROUGH LEVEL: 5.0 - 15.0 mg/LVANCOMYCIN HIGH INTENSITY THERAPY TROUGH LEVEL: 15.0 - 20.0 mg/LHigh Intensity therapy recommended for serious lifethreatening infections include:- Akptslfjsf-Saymlflibtod-Gtqxrjwuj (Ventilator/Healtcare Associated)-SepsisPLEASE CONTACT PHARMACY SERVICES (#7171) FOR INTERPRETATIONOF RESULTS. Performed By: #### L 501.8820 ####[facility] [address] [place], [address] Basic Metabolic Profile (BMP )on 07-25-2024 BUN/CRE 35.5 RATIO High 07-16 [facility] Comment on above: Performed By: #### L 101.9900, L500.2500, L100.0100 ####[facility] [address] [place], [address] CA,Total 8.7 mg/dL Normal 8.5-10.1 [facility] Comment on above: Performed By: #### L 101.9900, L500.2500, L100.0100 ####[facility] [address] [place], [address] Chloride [Moles/Vol] 108 mmol/L High 98-107 [facility] Comment on above: Performed By: #### L 101.9900, L500.2500, L100.0100 ####[facility] [address] [place], [address] CO2 [Moles/Vol] 28.0 mmol/L Normal 21.0-32.0 [facility] Comment on above: Performed By: #### L 101.9900, L500.2500, L100.0100 ####[facility] [address] [place], [address] Creatinine [Mass/Vol] 1.07 mg/dL Normal 0.70-1.30 [facility] Comment on above: Result Comment: The validity of the calculated GFR GFRAA in patients over70 years has not been determined. Clinical correlation isessential. Performed By: #### L 101.9900, L500.2500, L100.0100 ####[facility] [address] [place], [address] ECRCL 64.74 ml/min Normal [facility] Comment on above: Performed By: #### L 101.9900, L500.2500, L100.0100 ####[facility] [address] [place], [address] EST GFR - AA 89 mL/min Normal >60 [facility] Comment on above: Result Comment: Afri can [place]une[place] GFR Calc Performed By: #### L 101.9900, L500.2500, L100.0100 ####[facility] [address] [place], [address] GAP 4 Low 5-15 [facility] Comment on above: Performed By: #### L 101.9900, L500.2500, L100.0100 ####[facility] [address] [place], [address] GFR/1.73 sq M.predicted among non-blacks MDRD (S/P/Bld) [Vol rate/Area] 73 mL/min/{1.73_m2} Normal >60 [facility] Comment on above: Result Comment: Non- GFR Calc Performed By: #### L 101.9900, L500.2500, L100.0100 ####[facility] [address] [place], [address] Glucose [Mass/Vol] 97 mg/dL Normal 74-106 [facility] Comment on above: Performed By: #### L 101.9900, L500.2500, L100.0100 ####[facility] [address] [place], [address] Potassium [Moles/Vol] 3.6 mmol/L Normal 3.5-5.1 [facility] Comment on above: Performed By: #### L 101.9900, L500.2500, L100.0100 ####[facility] [address] [place], [address] Sodium [Moles/Vol] 140 mmol/L Normal 136-145 [facility] Comment on above: Performed By: #### L 101.9900, L500.2500, L100.0100 ####[facility] [address] [place], [address] Urea nitrogen [Mass/Vol] 38 mg/dL High 7-18 [facility] Comment on above: Performed By: #### L 101.9900, L500.2500, L100.0100 ####[facility] [address] [place], [address] CBC W/Diff, Automatedon 10-2 Absolute Lymph 0.40 X10 3/uL Low 0.83-4.51 [facility] Comment on above: Performed By: #### L 101.9900, L500.2500, L100.0100 ####[facility] [address] [place], [address] Absolute Neut 2.6 X10 3/uL Normal 2.0-7.7 [facility] Comment on above: Performed By: #### L 101.9900, L500.2500, L100.0100 ####[facility] [address] [place], [address] Basophils/100 WBC (Bld) 0.6 % Normal 0-1 [facility] Comment on above: Performed By: #### L 101.9900, L500.2500, L100.0100 ####[facility] [address] [place], [address] Eosinophils/100 WBC (Bld) 2.2 % Normal 0-5 [facility] Comment on above: Performed By: #### L 101.9900, L500.2500, L100.0100 ####[facility] [address] [place], [address] Erythrocyte distribution width (RBC) [Ratio] 14.9 % High 11.6-14.6 [facility] Comment on above: Performed By: #### L 101.9900, L500.2500, L100.0100 ####[facility] [address] [place], [address] Hematocrit (Bld) [Volume fraction] 29.6 % Low 40-54 [facility] Comment on above: Performed By: #### L 101.9900, L500.2500, L100.0100 ####[facility] [address] [place], [address] Hemoglobin (Bld) [Mass/Vol] 9.3 g/dL Low 13.0-16.5 [facility] Comment on above: Performed By: #### L 101.9900, L500.2500, L100.0100 ####[facility] [address] [place], [address] IG% 0.300 Normal 0.0-0.9 [facility] Comment on above: Result Comment: IG% - Immature Granulocytes (promyelocytes, myelocytes andmetamyelocytes) > 1% indicates that a LEFT SHIFT is Present. Performed By: #### L 101.9900, L500.2500, L100.0100 ####[facility] [address] [place], [address] Lymphocytes/100 WBC (Bld) 11.2 % Low 19-41 [facility] Comment on above: Performed By: #### L 101.9900, L500.2500, L100.0100 ####[facility] [address] [place], [address] MCH (RBC) [Entitic mass] 28.5 pg Normal 27.0-32.0 [facility] Comment on above: Performed By: #### L 101.9900, L500.2500, L100.0100 ####[facility] [address] [place], [address] MCHC (RBC) [Mass/Vol] 31.4 g/dL Low 32-36 [facility] Comment on above: Performed By: #### L 101.9900, L500.2500, L100.0100 ####[facility] [address] [place], [address] MCV (RBC) [Entitic vol] 90.8 fL Normal 80-94 [facility] Comment on above: Performed By: #### L 101.9900, L500.2500, L100.0100 ####[facility] [address] [place], [address] Monocytes/100 WBC (Bld) 12.6 % High 0-10 [facility] Comment on above: Performed By: #### L 101.9900, L500.2500, L100.0100 ####[facility] [address] [place], [address] Neutrophils/100 WBC (Bld) 73.1 % High 47-70 [facility] Comment on above: Performed By: #### L 101.9900, L500.2500, L100.0100 ####[facility] [address] [place], [address] Nucleated RBC (Bld) [#/Vol] 0 10*3/uL Normal 0-5 [facility] Comment on above: Performed By: #### L 101.9900, L500.2500, L100.0100 ####[facility] [facility] [address] [place], [address] Platelet mean volume (Bld) [Entitic vol] 10.0 fL Normal 6.2-12.0 [facility] Comment on above: Performed By: #### L 101.9900, L500.2500, L100.0100 ####[facility] [address] [place], [address] Platelets (Bld) [#/Vol] 156 10*3/uL Normal 150-450 [facility] Comment on above: Performed By: #### L 101.9900, L500.2500, L100.0100 ####[facility] [address] [place], [address] RBC (Bld) [#/Vol] 3.26 10*6/uL Low 4.6-6.2 [facility] Comment on above: Performed By: #### L 101.9900, L500.2500, L100.0100 ####[facility] [address] [place], [address] RDW SD 50.2 fl High 35.1-43.9 [facility] Comment on above: Performed By: #### L 101.9900, L500.2500, L100.0100 ####[facility] [address] [place], [address] WBC (Bld) [#/Vol] 3.6 10*3/uL Low 4.4-11.0 [facility] Comment on above: Performed By: #### L 101.9900, L500.2500, L100.0100 ####[facility] [address] [place], [address] Erythrocyte Sed Rateon 07-25 SED RATE 25 mm/hr High 0-20 [facility] Comment on above: Performed By: #### L 101.9900, L500.2500, L100.0100 ####[facility] [address] [place], [address] Vancomycin, Trough Levelon VANCO, TROUGH 14.7 ug/mL Normal 5.0-15.0 [facility] Comment on above: Order Comment: Comme nts: DRAW 30 MIN PRIOR TO [id number] Result Comment: VANC OMYCIN STANDARED DRUG THERAPY TROUGH LEVEL: 5.0 - 15.0 mg/LVANCOMYCIN HIGH INTENSITY THERAPY TROUGH LEVEL: 15.0 - 20.0 mg/LHigh Intensity therapy recommended for serious lifethreatening infections include:- Ogvbmgidwg-Vhegkibcghsm-Bdpfurcem (Ventilator/Healtcare Associated)-SepsisPLEASE CONTACT PHARMACY SERVICES (#1820) FOR INTERPRETATIONOF RESULTS. Performed By: #### L 501.8820 ####[facility] [address] [place], [address] Basic Metabolic Profile (BMP )on 07-18-2024 BUN/CRE 35.3 RATIO High 07-16 [facility] Comment on above: Performed By: #### L 101.9900, L100.0100, L500.2500 ####[facility] [address] [place], [address] CA,Total 9.3 mg/dL Normal 8.5-10.1 [facility] Comment on above: Performed By: #### L 101.9900, L100.0100, L500.2500 ####[facility] [address] [place], [address] Chloride [Moles/Vol] 106 mmol/L Normal 98-107 [facility] Comment on above: Performed By: #### L 101.9900, L100.0100, L500.2500 ####[facility] [address] [place], [address] CO2 [Moles/Vol] 29.0 mmol/L Normal 21.0-32.0 [facility] Comment on above: Performed By: #### L 101.9900, L100.0100, L500.2500 ####[facility] [address] [place], [address] Creatinine [Mass/Vol] 1.16 mg/dL Normal 0.70-1.30 [facility] Comment on above: Result Comment: The validity of the calculated GFR GFRAA in patients over70 years has not been determined. Clinical correlation isessential. Performed By: #### L 101.9900, L100.0100, L500.2500 ####[facility] [address] [place], [address] ECRCL 59.42 ml/min Normal [facility] Comment on above: Performed By: #### L 101.9900, L100.0100, L500.2500 ####[facility] [address] [place], [address] EST GFR - AA 81 mL/min Normal >60 [facility] Comment on above: Result Comment: Afri can [place]une[place] GFR Calc Performed By: #### L 101.9900, L100.0100, L500.2500 ####[facility] [address] [place], [address] GAP 4 Low 5-15 [facility] Comment on above: Performed By: #### L 101.9900, L100.0100, L500.2500 ####[facility] [address] [place], [address] GFR/1.73 sq M.predicted among non-blacks MDRD (S/P/Bld) [Vol rate/Area] 67 mL/min/{1.73_m2} Normal >60 [facility] Comment on above: Result Comment: Non- GFR Calc Performed By: #### L 101.9900, L100.0100, L500.2500 ####[facility] [address] [place], [address] Glucose [Mass/Vol] 102 mg/dL Normal 74-106 [facility] Comment on above: Result Comment: Fast ing Glucose result from 100 to 125 mg/dLsuggests IMPAIRED HOMEOSTASIS per A.D.A. criteria. Performed By: #### L 101.9900, L100.0100, L500.2500 ####[facility] [address] [place], [address] Potassium [Moles/Vol] 4.0 mmol/L Normal 3.5-5.1 [facility] Comment on above: Performed By: #### L 101.9900, L100.0100, L500.2500 ####[facility] [address] [place], [address] Sodium [Moles/Vol] 140 mmol/L Normal 136-145 [facility] Comment on above: Performed By: #### L 101.9900, L100.0100, L500.2500 ####[facility] [address] [place], [address] Urea nitrogen [Mass/Vol] 41 mg/dL High 7-18 [facility] Comment on above: Performed By: #### L 101.9900, L100.0100, L500.2500 ####[facility] [address] [place], [address] CBC W/Diff, Automatedon 10-2 Absolute Lymph 0.46 X10 3/uL Low 0.83-4.51 [facility] Comment on above: Performed By: #### L 101.9900, L100.0100, L500.2500 ####[facility] [address] [place], [address] Absolute Neut 3.4 X10 3/uL Normal 2.0-7.7 [facility] Comment on above: Performed By: #### L 101.9900, L100.0100, L500.2500 ####[facility] [address] [place], [address] Basophils/100 WBC (Bld) 1.1 % High 0-1 [facility] Comment on above: Performed By: #### L 101.9900, L100.0100, L500.2500 ####[facility] [address] [place], [address] Eosinophils/100 WBC (Bld) 2.6 % Normal 0-5 [facility] Comment on above: Performed By: #### L 101.9900, L100.0100, L500.2500 ####[facility] [address] [place], [address] Erythrocyte distribution width (RBC) [Ratio] 15.2 % High 11.6-14.6 [facility] Comment on above: Performed By: #### L 101.9900, L100.0100, L500.2500 ####[facility] [address] [place], [address] Hematocrit (Bld) [Volume fraction] 30.6 % Low 40-54 [facility] Comment on above: Performed By: #### L 101.9900, L100.0100, L500.2500 ####[facility] [address] [place], [address] Hemoglobin (Bld) [Mass/Vol] 9.8 g/dL Low 13.0-16.5 [facility] Comment on above: Performed By: #### L 101.9900, L100.0100, L500.2500 ####[facility] [address] [place], [address] IG% 0.700 Normal 0.0-0.9 [facility] Comment on above: Result Comment: IG% - Immature Granulocytes (promyelocytes, myelocytes andmetamyelocytes) > 1% indicates that a LEFT SHIFT is Present. Performed By: #### L 101.9900, L100.0100, L500.2500 ####[facility] [address] [place], [address] Lymphocytes/100 WBC (Bld) 10.1 % Low 19-41 [facility] Comment on above: Performed By: #### L 101.9900, L100.0100, L500.2500 ####[facility] [address] [place], [address] MCH (RBC) [Entitic mass] 28.9 pg Normal 27.0-32.0 [facility] Comment on above: Performed By: #### L 101.9900, L100.0100, L500.2500 ####[facility] [address] [place], [address] MCHC (RBC) [Mass/Vol] 32.0 g/dL Normal 32-36 [facility] Comment on above: Performed By: #### L 101.9900, L100.0100, L500.2500 ####[facility] [address] [place], [address] MCV (RBC) [Entitic vol] 90.3 fL Normal 80-94 [facility] Comment on above: Performed By: #### L 101.9900, L100.0100, L500.2500 ####[facility] [address] [place], [address] Monocytes/100 WBC (Bld) 11.2 % High 0-10 [facility] Comment on above: Performed By: #### L 101.9900, L100.0100, L500.2500 ####[facility] [address] [place], [address] Neutrophils/100 WBC (Bld) 74.3 % High 47-70 [facility] Comment on above: Performed By: #### L 101.9900, L100.0100, L500.2500 ####[facility] [address] [place], [address] Nucleated RBC (Bld) [#/Vol] 0 10*3/uL Normal 0-5 [facility] Comment on above: Performed By: #### L 101.9900, L100.0100, L500.2500 ####[facility] [address] [place], [address] Platelet mean volume (Bld) [Entitic vol] 10.0 fL Normal 6.2-12.0 [facility] Comment on above: Performed By: #### L 101.9900, L100.0100, L500.2500 ####[facility] [address] [place], [address] Platelets (Bld) [#/Vol] 223 10*3/uL Normal 150-450 [facility] Comment on above: Performed By: #### L 101.9900, L100.0100, L500.2500 ####[facility] [address] [place], [address] RBC (Bld) [#/Vol] 3.39 10*6/uL Low 4.6-6.2 [facility] Comment on above: Performed By: #### L 101.9900, L100.0100, L500.2500 ####[facility] [address] [place], [address] RDW SD 50.6 fl High 35.1-43.9 [facility] Comment on above: Performed By: #### L 101.9900, L100.0100, L500.2500 ####[facility] [address] [place], [address] WBC (Bld) [#/Vol] 4.6 10*3/uL Normal 4.4-11.0 [facility] Comment on above: Performed By: #### L 101.9900, L100.0100, L500.2500 ####[facility] [address] [place], [address] Erythrocyte Sed Rateon - SED RATE 29 mm/hr High 0-20 [facility] Comment on above: Performed By: #### L 101.9900, L100.0100, L500.2500 ####[facility] [address] [place], [address] Vancomycin, Trough Levelon 1 - VANCO, TROUGH 15.2 ug/mL High 5.0-15.0 [facility] Comment on above: Order Comment: Comme nts: DRAW 30 MIN PRIOR TO [id number] Result Comment: VANC OMYCIN STANDARED DRUG THERAPY TROUGH LEVEL: 5.0 - 15.0 mg/LVANCOMYCIN HIGH INTENSITY THERAPY TROUGH LEVEL: 15.0 - 20.0 mg/LHigh Intensity therapy recommended for serious lifethreatening infections include:- Ekgrphxjbl-Zbdrnhbxoaqy-Zhbtmpskg (Ventilator/Healtcare Associated)-SepsisPLEASE CONTACT PHARMACY SERVICES (#8319) FOR INTERPRETATIONOF RESULTS. Performed By: #### L 501.8820 ####[facility] [address] [facility] [address] [place], [place], [id number] Vancomycin, Trough Levelon - VANCO, TROUGH 17.3 ug/mL High 5.0-15.0 [facility] Comment on above: Order Comment: Comme nts: Trough to be drawn 30 mins prior to scheduled [id number] Result Comment: VANC OMYCIN STANDARED DRUG THERAPY TROUGH LEVEL: 5.0 - 15.0 mg/LVANCOMYCIN HIGH INTENSITY THERAPY TROUGH LEVEL: 15.0 - 20.0 mg/LHigh Intensity therapy recommended for serious lifethreatening infections include:- Ydsnzixubi-Bdhdbwbghcib-Hlyzuuyxx (Ventilator/Healtcare Associated)-SepsisPLEASE CONTACT PHARMACY SERVICES (#8391) FOR INTERPRETATIONOF RESULTS. Performed By: #### L 501.8820 ####[facility] [address] [place], [address] CBC W/Diff, Automatedon 10- Absolute Neut Normal 2.0-7.7 [facility] Comment on above: Result Comment: OM C ANCEL REQUEST Performed By: #### L 100.0100, L500.4050 ####[facility] [address] [place], [address] HCT Normal 40-54 [facility] Comment on above: Result Comment: OM C ANCEL REQUEST Performed By: #### L 100.0100, L500.4050 ####[facility] [address] [place], [address] HGB Normal 13.0-16.5 [facility] Comment on above: Result Comment: OM C ANCEL REQUEST Performed By: #### L 100.0100, L500.4050 ####[facility] [address] [place], [address] MCH Normal 27.0-32.0 [facility] Comment on above: Result Comment: OM C ANCEL REQUEST Performed By: #### L 100.0100, L500.4050 ####[facility] [address] [place], [address] MCHC Normal 32-36 [facility] Comment on above: Result Comment: OM C ANCEL REQUEST Performed By: #### L 100.0100, L500.4050 ####[facility] [address] [place], [address] MCV Normal 80-94 [facility] Comment on above: Result Comment: OM C ANCEL REQUEST Performed By: #### L 100.0100, L500.4050 ####[facility] [address] [place], [address] NEUT% Normal 47-70 [facility] Comment on above: Result Comment: OM C ANCEL REQUEST Performed By: #### L 100.0100, L500.4050 ####[facility] [address] [place], [address] PLT Normal 150-450 [facility] Comment on above: Result Comment: OM C ANCEL REQUEST Performed By: #### L 100.0100, L500.4050 ####[facility] [address] [place], [address] RBC Normal 4.6-6.2 [facility] Comment on above: Result Comment: OM C ANCEL REQUEST Performed By: #### L 100.0100, L500.4050 ####[facility] [address] [place], [address] RDW CV Normal 11.6-14.6 [facility] Comment on above: Result Comment: OM C ANCEL REQUEST Performed By: #### L 100.0100, L500.4050 ####[facility] [address] [place], [address] RDW SD Normal 35.1-43.9 [facility] Comment on above: Result Comment: OM C ANCEL REQUEST Performed By: #### L 100.0100, L500.4050 ####[facility] [address] [place], [address] WBC Normal 4.4-11.0 [facility] Comment on above: Result Comment: OM C ANCEL REQUEST Performed By: #### L 100.0100, L500.4050 ####[facility] [address] [place], [address] Comprehensive Metabolic Prof ilon 2024 ALB Normal 3.2-5.0 [facility] Comment on above: Result Comment: OM C ANCEL REQUEST Performed By: #### L 100.0100, L500.4050 ####[facility] [address] [place], [address] ALK P Normal 45-117 [facility] Comment on above: Result Comment: OM C ANCEL REQUEST Performed By: #### L 100.0100, L500.4050 ####[facility] [address] [place], [address] ALT Normal 16-61 [facility] Comment on above: Result Comment: OM C ANCEL REQUEST Performed By: #### L 100.0100, L500.4050 ####[facility] [address] [place], [address] AST Normal 15-37 [facility] Comment on above: Result Comment: OM C ANCEL REQUEST Performed By: #### L 100.0100, L500.4050 ####[facility] [address] [place], [address] BUN Normal 7-18 [facility] Comment on above: Result Comment: OM C ANCEL REQUEST Performed By: #### L 100.0100, L500.4050 ####[facility] [address] [place], [address] BUN/CRE Normal 10-20 [facility] Comment on above: Result Comment: OM C ANCEL REQUEST Performed By: #### L 100.0100, L500.4050 ####[facility] [address] [place], [address] CA,Total Normal 8.5-10.1 [facility] Comment on above: Result Comment: OM C ANCEL REQUEST Performed By: #### L 100.0100, L500.4050 ####[facility] [address] [place], [address] CL Normal 98-107 [facility] Comment on above: Result Comment: OM C ANCEL REQUEST Performed By: #### L 100.0100, L500.4050 ####[facility] [address] [place], [address] CO2 Normal 21.0-32.0 [facility] Comment on above: Result Comment: OM C ANCEL REQUEST Performed By: #### L 100.0100, L500.4050 ####[facility] [address] [place], [address] CREAT,SERUM Normal 0.70-1.30 [facility] Comment on above: Result Comment: OM C ANCEL REQUEST Performed By: #### L 100.0100, L500.4050 ####[facility] [address] [place], [address] EST GFR Normal >60 [facility] Comment on above: Result Comment: OM C ANCEL REQUEST Performed By: #### L 100.0100, L500.4050 ####[facility] [address] [place], [address] EST GFR - AA Normal >60 [facility] Comment on above: Result Comment: OM C ANCEL REQUEST Performed By: #### L 100.0100, L500.4050 ####[facility] [address] [place], [address] GAP Normal 5-15 [facility] Comment on above: Result Comment: OM C ANCEL REQUEST Performed By: #### L 100.0100, L500.4050 ####[facility] [address] [place], [address] GLU Normal 74-106 [facility] Comment on above: Result Comment: OM C ANCEL REQUEST Performed By: #### L 100.0100, L500.4050 ####[facility] [address] [place], [address] Potassium Normal 3.5-5.1 [facility] Comment on above: Result Comment: OM C ANCEL REQUEST Performed By: #### L 100.0100, L500.4050 ####[facility] [address] [place], [address] T BILI Normal 0.20-1.00 [facility] Comment on above: Result Comment: OM C ANCEL REQUEST Performed By: #### L 100.0100, L500.4050 ####[facility] [address] [place], [address] T PROT Normal 6.4-8.2 [facility] Comment on above: Result Comment: OM C ANCEL REQUEST Performed By: #### L 100.0100, L500.4050 ####[facility] [address] [place], [address] Comprehensive Metabolic Profil Normal 136-145 [facility] Comment on above: Result Comment: OM C ANCEL REQUEST Performed By: #### L 100.0100, L500.4050 ####[facility] [address] [place], [address] Basic Metabolic Profile (BMP )on 07-11-2023 BUN/CRE 26.4 RATIO High 10-20 [facility] Comment on above: Performed By: #### L 101.9900, L100.0100, L500.2500 ####[facility] [address] [place], [address] CA,Total 8.8 mg/dL Normal 8.5-10.1 [facility] Comment on above: Performed By: #### L 101.9900, L100.0100, L500.2500 ####[facility] [address] [place], [address] Chloride [Moles/Vol] 105 mmol/L Normal 98-107 [facility] Comment on above: Performed By: #### L 101.9900, L100.0100, L500.2500 ####[facility] [address] [place], [address] CO2 [Moles/Vol] 28.0 mmol/L Normal 21.0-32.0 [facility] Comment on above: Performed By: #### L 101.9900, L100.0100, L500.2500 ####[facility] [address] [place], [address] Creatinine [Mass/Vol] 1.29 mg/dL Normal 0.70-1.30 [facility] Comment on above: Result Comment: The validity of the calculated GFR GFRAA in patients over70 years has not been determined. Clinical correlation isessential. Performed By: #### L 101.9900, L100.0100, L500.2500 ####[facility] [address] [place], [address] ECRCL 55.10 ml/min Normal [facility] Comment on above: Performed By: #### L 101.9900, L100.0100, L500.2500 ####[facility] [address] [place], [address] EST GFR - AA 71 mL/min Normal >60 [facility] Comment on above: Result Comment: Afri can [place] GFR Calc Performed By: #### L 101.9900, L100.0100, L500.2500 ####[facility] [address] [place], [address] GAP 5 Normal 5-15 [facility] Comment on above: Performed By: #### L 101.9900, L100.0100, L500.2500 ####[facility] [address] [place], [address] GFR/1.73 sq M.predicted among non-blacks MDRD (S/P/Bld) [Vol rate/Area] 59 mL/min/{1.73_m2} Low >60 [facility] Comment on above: Result Comment: Non- GFR Calc Performed By: #### L 101.9900, L100.0100, L500.2500 ####[facility] [address] [place], [address] Glucose [Mass/Vol] 107 mg/dL High 74-106 [facility] Comment on above: Result Comment: Fast ing Glucose result from 100 to 125 mg/dLsuggests IMPAIRED HOMEOSTASIS per A.D.A. criteria. Performed By: #### L 101.9900, L100.0100, L500.2500 ####[facility] [address] [place], [address] Potassium [Moles/Vol] 4.2 mmol/L Normal 3.5-5.1 [facility] Comment on above: Performed By: #### L 101.9900, L100.0100, L500.2500 ####[facility] [address] [place], [address] Sodium [Moles/Vol] 138 mmol/L Normal 136-145 [facility] Comment on above: Performed By: #### L 101.9900, L100.0100, L500.2500 ####[facility] [address] [place], [address] Urea nitrogen [Mass/Vol] 34 mg/dL High 7-18 [facility] Comment on above: Performed By: #### L 101.9900, L100.0100, L500.2500 ####[facility] [address] [place], [address] CBC W/Diff, Automatedon 10 Absolute Lymph 0.46 X10 3/uL Low 0.83-4.51 [facility] Comment on above: Performed By: #### L 101.9900, L100.0100, L500.2500 ####[facility] [address] [place], [address] Absolute Neut 3.1 X10 3/uL Normal 2.0-7.7 [facility] Comment on above: Performed By: #### L 101.9900, L100.0100, L500.2500 ####[facility] [address] [place], [address] Basophils/100 WBC (Bld) 0.5 % Normal 0-1 [facility] Comment on above: Performed By: #### L 101.9900, L100.0100, L500.2500 ####[facility] [address] [place], [address] Eosinophils/100 WBC (Bld) 5.5 % High 0-5 [facility] Comment on above: Performed By: #### L 101.9900, L100.0100, L500.2500 ####[facility] [address] [place], [address] Erythrocyte distribution width (RBC) [Ratio] 15.4 % High 11.6-14.6 [facility] Comment on above: Performed By: #### L 101.9900, L100.0100, L500.2500 ####[facility] [address] [place], [address] Hematocrit (Bld) [Volume fraction] 29.9 % Low 40-54 [facility] Comment on above: Performed By: #### L 101.9900, L100.0100, L500.2500 ####[facility] [address] [place], [address] Hemoglobin (Bld) [Mass/Vol] 9.5 g/dL Low 13.0-16.5 [facility] Comment on above: Performed By: #### L 101.9900, L100.0100, L500.2500 ####[facility] [address] [place], [address] IG% 0.200 Normal 0.0-0.9 [facility] Comment on above: Result Comment: IG% - Immature Granulocytes (promyelocytes, myelocytes andmetamyelocytes) > 1% indicates that a LEFT SHIFT is Present. Performed By: #### L 101.9900, L100.0100, L500.2500 ####[facility] [address] [place], [address] Lymphocytes/100 WBC (Bld) 10.9 % Low 19-41 [facility] Comment on above: Performed By: #### L 101.9900, L100.0100, L500.2500 ####[facility] [address] [place], [address] MCH (RBC) [Entitic mass] 28.9 pg Normal 27.0-32.0 [facility] Comment on above: Performed By: #### L 101.9900, L100.0100, L500.2500 ####[facility] [address] [place], [address] MCHC (RBC) [Mass/Vol] 31.8 g/dL Low 32-36 [facility] Comment on above: Performed By: #### L 101.9900, L100.0100, L500.2500 ####[facility] [address] [place], [address] MCV (RBC) [Entitic vol] 90.9 fL Normal 80-94 [facility] Comment on above: Performed By: #### L 101.9900, L100.0100, L500.2500 ####[facility] [address] [place], [address] Monocytes/100 WBC (Bld) 9.2 % Normal 0-10 [facility] Comment on above: Performed By: #### L 101.9900, L100.0100, L500.2500 ####[facility] [address] [place], [address] Neutrophils/100 WBC (Bld) 73.7 % High 47-70 [facility] Comment on above: Performed By: #### L 101.9900, L100.0100, L500.2500 ####[facility] [address] [place], [address] Nucleated RBC (Bld) [#/Vol] 0 10*3/uL Normal 0-5 [facility] Comment on above: Performed By: #### L 101.9900, L100.0100, L500.2500 ####[facility] [address] [place], [address] Platelet mean volume (Bld) [Entitic vol] 10.0 fL Normal 6.2-12.0 [facility] Comment on above: Performed By: #### L 101.9900, L100.0100, L500.2500 ####[facility] [address] [place], [address] Platelets (Bld) [#/Vol] 167 10*3/uL Normal 150-450 [facility] Comment on above: Performed By: #### L 101.9900, L100.0100, L500.2500 ####[facility] [address] [place], [address] RBC (Bld) [#/Vol] 3.29 10*6/uL Low 4.6-6.2 [facility] Comment on above: Performed By: #### L 101.9900, L100.0100, L500.2500 ####[facility] [address] [place], [address] RDW SD 52.2 fl High 35.1-43.9 [facility] Comment on above: Performed By: #### L 101.9900, L100.0100, L500.2500 ####[facility] [address] [place], [address] WBC (Bld) [#/Vol] 4.2 10*3/uL Low 4.4-11.0 [facility] Comment on above: Performed By: #### L 101.9900, L100.0100, L500.2500 ####[facility] [address] [place], [address] COVID 19 AG RAPID (RN COLLEC T)on 07-11-2024 SARS-CoV-2 (COVID-19) RNA GARTH+probe Ql (Unsp spec) Normal [facility] Comment on above: Performed By: #### M 100.505 ####[facility] [address] [place], [address] Erythrocyte Sed Rateon 07-11 SED RATE 44 mm/hr High 0-20 [facility] Comment on above: Performed By: #### L 101.9900, L100.0100, L500.2500 ####[facility] [address] [place], [address] SARS-CoV-2 (COVID-19) Ag IA. rapid Ql (Resp)Ordered By: Burt Kaba on 07-11-2024 SARS-CoV-2 Antigen (Rapid) [facility] Basic Metabolic Profile (BMP )on 07-10-2024 BUN/CRE 32.3 RATIO High 07-16 [facility] Comment on above: Performed By: #### L 100.0100, L500.2500 ####[facility] [address] [place], [address] CA,Total 9.0 mg/dL Normal 8.5-10.1 [facility] Comment on above: Performed By: #### L 100.0100, L500.2500 ####[facility] [address] [place], [address] Chloride [Moles/Vol] 104 mmol/L Normal 98-107 [facility] Comment on above: Performed By: #### L 100.0100, L500.2500 ####[facility] [address] [place], [address] CO2 [Moles/Vol] 28.0 mmol/L Normal 21.0-32.0 [facility] Comment on above: Performed By: #### L 100.0100, L500.2500 ####[facility] [address] [place], [address] Creatinine [Mass/Vol] 1.27 mg/dL Normal 0.70-1.30 [facility] Comment on above: Result Comment: The validity of the calculated GFR GFRAA in patients over70 years has not been determined. Clinical correlation isessential. Performed By: #### L 100.0100, L500.2500 ####[facility] [address] [place], [address] ECRCL 49.77 ml/min Normal [facility] Comment on above: Performed By: #### L 100.0100, L500.2500 ####[facility] [address] [place], [address] EST GFR - AA 73 mL/min Normal >60 [facility] Comment on above: Result Comment: Afri can Bruneian GFR Calc Performed By: #### L 100.0100, L500.2500 ####[facility] [address] [place], [address] GAP 5 Normal 5-15 [facility] Comment on above: Performed By: #### L 100.0100, L500.2500 ####[facility] [address] [place], [address] GFR/1.73 sq M.predicted among non-blacks MDRD (S/P/Bld) [Vol rate/Area] 60 mL/min/{1.73_m2} Normal >60 [facility] Comment on above: Result Comment: Non- GFR Calc Performed By: #### L 100.0100, L500.2500 ####[facility] [address] [place], [address] Glucose [Mass/Vol] 96 mg/dL Normal 74-106 [facility] Comment on above: Performed By: #### L 100.0100, L500.2500 ####[facility] [address] [place], [address] Potassium [Moles/Vol] 4.2 mmol/L Normal 3.5-5.1 [facility] Comment on above: Performed By: #### L 100.0100, L500.2500 ####[facility] [address] [place], [address] Sodium [Moles/Vol] 137 mmol/L Normal 136-145 [facility] Comment on above: Performed By: #### L 100.0100, L500.2500 ####[facility] [address] [place], [address] Urea nitrogen [Mass/Vol] 41 mg/dL High 7-18 [facility] Comment on above: Performed By: #### L 100.0100, L500.2500 ####[facility] [address] [place], [address] CBC W/Diff, Automatedon 10-1 Absolute Lymph 0.55 X10 3/uL Low 0.83-4.51 [facility] Comment on above: Performed By: #### L 100.0100, L500.2500 ####[facility] [address] [place], [address] Absolute Neut 2.2 X10 3/uL Normal 2.0-7.7 [facility] Comment on above: Performed By: #### L 100.0100, L500.2500 ####[facility] [address] [place], [address] Basophils/100 WBC (Bld) 0.6 % Normal 0-1 [facility] Comment on above: Performed By: #### L 100.0100, L500.2500 ####[facility] [address] [place], [address] Eosinophils/100 WBC (Bld) 7.0 % High 0-5 [facility] Comment on above: Performed By: #### L 100.0100, L500.2500 ####[facility] [address] [place], [address] Erythrocyte distribution width (RBC) [Ratio] 15.4 % High 11.6-14.6 [facility] Comment on above: Performed By: #### L 100.0100, L500.2500 ####[facility] [address] [place], [address] Hematocrit (Bld) [Volume fraction] 29.1 % Low 40-54 [facility] Comment on above: Performed By: #### L 100.0100, L500.2500 ####[facility] [address] [place], [address] Hemoglobin (Bld) [Mass/Vol] 9.3 g/dL Low 13.0-16.5 [facility] Comment on above: Performed By: #### L 100.0100, L500.2500 ####[facility] [address] [place], [address] IG% 0.300 Normal 0.0-0.9 [facility] Comment on above: Result Comment: IG% - Immature Granulocytes (promyelocytes, myelocytes andmetamyelocytes) > 1% indicates that a LEFT SHIFT is Present. Performed By: #### L 100.0100, L500.2500 ####[facility] [address] [place], [address] Lymphocytes/100 WBC (Bld) 15.4 % Low 19-41 [facility] Comment on above: Performed By: #### L 100.0100, L500.2500 ####[facility] [address] [place], [address] MCH (RBC) [Entitic mass] 29.2 pg Normal 27.0-32.0 [facility] Comment on above: Performed By: #### L 100.0100, L500.2500 ####[facility] [address] [place], [address] MCHC (RBC) [Mass/Vol] 32.0 g/dL Normal 32-36 [facility] Comment on above: Performed By: #### L 100.0100, L500.2500 ####[facility] [address] [place], [address] MCV (RBC) [Entitic vol] 91.2 fL Normal 80-94 [facility] Comment on above: Performed By: #### L 100.0100, L500.2500 ####[facility] [address] [place], [address] Monocytes/100 WBC (Bld) 14.5 % High 0-10 [facility] Comment on above: Performed By: #### L 100.0100, L500.2500 ####[facility] [address] [place], [address] Neutrophils/100 WBC (Bld) 62.2 % Normal 47-70 [facility] Comment on above: Performed By: #### L 100.0100, L500.2500 ####[facility] [address] [place], [address] Nucleated RBC (Bld) [#/Vol] 0 10*3/uL Normal 0-5 [facility] Comment on above: Performed By: #### L 100.0100, L500.2500 ####[facility] [address] [place], [address] Platelet mean volume (Bld) [Entitic vol] 10.1 fL Normal 6.2-12.0 [facility] Comment on above: Performed By: #### L 100.0100, L500.2500 ####[facility] [address] [place], [address] Platelets (Bld) [#/Vol] 164 10*3/uL Normal 150-450 [facility] Comment on above: Performed By: #### L 100.0100, L500.2500 ####[facility] [address] [place], [address] RBC (Bld) [#/Vol] 3.19 10*6/uL Low 4.6-6.2 [facility] Comment on above: Performed By: #### L 100.0100, L500.2500 ####[facility] [address] [place], [address] RDW SD 51.5 fl High 35.1-43.9 [facility] Comment on above: Performed By: #### L 100.0100, L500.2500 ####[facility] [address] [place], [address] WBC (Bld) [#/Vol] 3.6 10*3/uL Low 4.4-11.0 [facility] Comment on above: Performed By: #### L 100.0100, L500.2500 ####[facility] [address] [place], [address] Basic Metabolic Profile (BMP )on 07-09-2024 BUN/CRE 26.1 RATIO High 10-20 [facility] Comment on above: Performed By: #### L 500.2500, L100.0100 ####[facility] [address] [place], [address] CA,Total 8.8 mg/dL Normal 8.5-10.1 [facility] Comment on above: Performed By: #### L 500.2500, L100.0100 ####[facility] [address] [place], [address] Chloride [Moles/Vol] 105 mmol/L Normal 98-107 [facility] Comment on above: Performed By: #### L 500.2500, L100.0100 ####[facility] [address] [place], [address] CO2 [Moles/Vol] 28.0 mmol/L Normal 21.0-32.0 [facility] Comment on above: Performed By: #### L 500.2500, L100.0100 ####[facility] [address] [place], [address] Creatinine [Mass/Vol] 1.34 mg/dL High 0.70-1.30 [facility] Comment on above: Result Comment: The validity of the calculated GFR GFRAA in patients over70 years has not been determined. Clinical correlation isessential. Performed By: #### L 500.2500, L100.0100 ####[facility] [address] [place], [address] ECRCL 47.17 ml/min Normal [facility] Comment on above: Performed By: #### L 500.2500, L100.0100 ####[facility] [address] [place], [address] EST GFR - AA 68 mL/min Normal >60 [facility] Comment on above: Result Comment: Afri can [place] GFR Calc Performed By: #### L 500.2500, L100.0100 ####[facility] [address] [place], [address] GAP 5 Normal 5-15 [facility] Comment on above: Performed By: #### L 500.2500, L100.0100 ####[facility] [address] [place], [address] GFR/1.73 sq M.predicted among non-blacks MDRD (S/P/Bld) [Vol rate/Area] 57 mL/min/{1.73_m2} Low >60 [facility] Comment on above: Result Comment: Non- GFR Calc Performed By: #### L 500.2500, L100.0100 ####[facility] [address] [place], [address] Glucose [Mass/Vol] 101 mg/dL Normal 74-106 [facility] Comment on above: Result Comment: Fast ing Glucose result from 100 to 125 mg/dLsuggests IMPAIRED HOMEOSTASIS per A.D.A. criteria. Performed By: #### L 500.2500, L100.0100 ####[facility] [address] [place], [address] Potassium [Moles/Vol] 4.3 mmol/L Normal 3.5-5.1 [facility] Comment on above: Performed By: #### L 500.2500, L100.0100 ####[facility] [address] [place], [address] Sodium [Moles/Vol] 138 mmol/L Normal 136-145 [facility] Comment on above: Performed By: #### L 500.2500, L100.0100 ####[facility] [address] [place], [address] Urea nitrogen [Mass/Vol] 35 mg/dL High 7-18 [facility] Comment on above: Performed By: #### L 500.2500, L100.0100 ####[facility] [address] [place], [address] CBC W/Diff, Automatedon 10- Absolute Lymph 0.56 X10 3/uL Low 0.83-4.51 [facility] Comment on above: Performed By: #### L 500.2500, L100.0100 ####[facility] [address] [place], [address] Absolute Neut 2.7 X10 3/uL Normal 2.0-7.7 [facility] Comment on above: Performed By: #### L 500.2500, L100.0100 ####[facility] [address] [place], [address] Basophils/100 WBC (Bld) 1.0 % Normal 0-1 [facility] Comment on above: Performed By: #### L 500.2500, L100.0100 ####[facility] [address] [place], [address] Eosinophils/100 WBC (Bld) 5.0 % Normal 0-5 [facility] Comment on above: Performed By: #### L 500.2500, L100.0100 ####[facility] [address] [place], [address] Erythrocyte distribution width (RBC) [Ratio] 15.5 % High 11.6-14.6 [facility] Comment on above: Performed By: #### L 500.2500, L100.0100 ####[facility] [address] [place], [address] Hematocrit (Bld) [Volume fraction] 28.6 % Low 40-54 [facility] Comment on above: Performed By: #### L 500.2500, L100.0100 ####[facility] [address] [place], [address] Hemoglobin (Bld) [Mass/Vol] 9.0 g/dL Low 13.0-16.5 [facility] Comment on above: Performed By: #### L 500.2500, L100.0100 ####[facility] [address] [place], [address] IG% 0.500 Normal 0.0-0.9 [facility] Comment on above: Result Comment: IG% - Immature Granulocytes (promyelocytes, myelocytes andmetamyelocytes) > 1% indicates that a LEFT SHIFT is Present. Performed By: #### L 500.2500, L100.0100 ####[facility] [address] [place], [address] Lymphocytes/100 WBC (Bld) 13.5 % Low 19-41 [facility] Comment on above: Performed By: #### L 500.2500, L100.0100 ####[facility] [address] [place], [address] MCH (RBC) [Entitic mass] 28.7 pg Normal 27.0-32.0 [facility] Comment on above: Performed By: #### L 500.2500, L100.0100 ####[facility] [address] [place], [address] MCHC (RBC) [Mass/Vol] 31.5 g/dL Low 32-36 [facility] Comment on above: Performed By: #### L 500.2500, L100.0100 ####[facility] [address] [place], [address] MCV (RBC) [Entitic vol] 91.1 fL Normal 80-94 [facility] Comment on above: Performed By: #### L 500.2500, L100.0100 ####[facility] [address] [place], [address] Monocytes/100 WBC (Bld) 16.3 % High 0-10 [facility] Comment on above: Performed By: #### L 500.2500, L100.0100 ####[facility] [address] [place], [address] Neutrophils/100 WBC (Bld) 63.7 % Normal 47-70 [facility] Comment on above: Performed By: #### L 500.2500, L100.0100 ####[facility] [address] [place], [address] Nucleated RBC (Bld) [#/Vol] 0 10*3/uL Normal 0-5 [facility] Comment on above: Performed By: #### L 500.2500, L100.0100 ####[facility] [address] [place], [address] Platelet mean volume (Bld) [Entitic vol] 9.9 fL Normal 6.2-12.0 [facility] Comment on above: Performed By: #### L 500.2500, L100.0100 ####[facility] [address] [place], [address] Platelets (Bld) [#/Vol] 155 10*3/uL Normal 150-450 [facility] Comment on above: Performed By: #### L 500.2500, L100.0100 ####[facility] [address] [place], [address] RBC (Bld) [#/Vol] 3.14 10*6/uL Low 4.6-6.2 [facility] Comment on above: Performed By: #### L 500.2500, L100.0100 ####[facility] [address] [place], [address] RDW SD 51.9 fl High 35.1-43.9 [facility] Comment on above: Performed By: #### L 500.2500, L100.0100 ####[facility] [address] [place], [address] WBC (Bld) [#/Vol] 4.2 10*3/uL Low 4.4-11.0 [facility] Comment on above: Performed By: #### L 500.2500, L100.0100 ####[facility] [address] [place], [address] Prealbumin [id number] Prealbumin [Mass/Vol] 17 mg/dL Normal 10-36 [facility] Comment on above: Result Comment: Perf ormed at: CB - [facility] [address] [id number] Director: Micky Arreola PhD, Phone: [phone] Performed By: #### L 7750.4270 ####[facility] [address] [place], [address] Vancomycin, Trough Levelon 1 VANCO, TROUGH 15.4 ug/mL High 5.0-15.0 [facility] Comment on above: Order Comment: 1800 Result Comment: VANC OMYCIN STANDARED DRUG THERAPY TROUGH LEVEL: 5.0 - 15.0 mg/LVANCOMYCIN HIGH INTENSITY THERAPY TROUGH LEVEL: 15.0 - 20.0 mg/LHigh Intensity therapy recommended for serious lifethreatening infections include:- Hxmpbiiyha-Vewogqtewrya-Fxnowzopf (Ventilator/Healtcare Associated)-SepsisPLEASE CONTACT PHARMACY SERVICES (#9847) FOR INTERPRETATIONOF RESULTS. Performed By: #### L 501.8820 ####[facility] [address] [place], [address] Albumin, Serumon 07-08-2024 Albumin [Mass/Vol] 2.6 g/dL Low 3.2-5.0 [facility] Comment on above: Performed By: #### L 501.1800 ####[facility] [address] [place], [address] Basic Metabolic Profile (BMP )on 07-08-2024 BUN/CRE 25.2 RATIO High 07-16 [facility] Comment on above: Performed By: #### L 500.2500, L100.0100 ####[facility] [address] [place], [address] CA,Total 8.9 mg/dL Normal 8.5-10.1 [facility] Comment on above: Performed By: #### L 500.2500, L100.0100 ####[facility] [address] [place], [address] Chloride [Moles/Vol] 102 mmol/L Normal 98-107 [facility] Comment on above: Performed By: #### L 500.2500, L100.0100 ####[facility] [address] [place], [address] CO2 [Moles/Vol] 26.0 mmol/L Normal 21.0-32.0 [facility] Comment on above: Performed By: #### L 500.2500, L100.0100 ####[facility] [address] [place], [address] Creatinine [Mass/Vol] 1.27 mg/dL Normal 0.70-1.30 [facility] Comment on above: Result Comment: The validity of the calculated GFR GFRAA in patients over70 years has not been determined. Clinical correlation isessential. Performed By: #### L 500.2500, L100.0100 ####[facility] [address] [place], [address] ECRCL 56.41 ml/min Normal [facility] Comment on above: Performed By: #### L 500.2500, L100.0100 ####[facility] [address] [place], [address] EST GFR - AA 73 mL/min Normal >60 [facility] Comment on above: Result Comment: Afri can [place] GFR Calc Performed By: #### L 500.2500, L100.0100 ####[facility] [address] [place], [address] GAP 8 Normal 5-15 [facility] Comment on above: Performed By: #### L 500.2500, L100.0100 ####[facility] [address] [place], [address] GFR/1.73 sq M.predicted among non-blacks MDRD (S/P/Bld) [Vol rate/Area] 60 mL/min/{1.73_m2} Normal >60 [facility] Comment on above: Result Comment: Non- GFR Calc Performed By: #### L 500.2500, L100.0100 ####[facility] [address] [place], [address] Glucose [Mass/Vol] 101 mg/dL Normal 74-106 [facility] Comment on above: Result Comment: Fast ing Glucose result from 100 to 125 mg/dLsuggests IMPAIRED HOMEOSTASIS per A.D.A. criteria. Performed By: #### L 500.2500, L100.0100 ####[facility] [address] [place], [address] Potassium [Moles/Vol] 3.8 mmol/L Normal 3.5-5.1 [facility] Comment on above: Performed By: #### L 500.2500, L100.0100 ####[facility] [address] [place], [address] Sodium [Moles/Vol] 135 mmol/L Low 136-145 [facility] Comment on above: Performed By: #### L 500.2500, L100.0100 ####[facility] [address] [place], [address] Urea nitrogen [Mass/Vol] 32 mg/dL High 7-18 [facility] Comment on above: Performed By: #### L 500.2500, L100.0100 ####[facility] [address] [place], [address] CBC W/Diff, Automatedon 06-27-2023 Absolute Lymph 0.35 X10 3/uL Low 0.83-4.51 [facility] Comment on above: Performed By: #### L 500.2500, L100.0100 ####[facility] [address] [place], [address] Absolute Neut 3.8 X10 3/uL Normal 2.0-7.7 [facility] Comment on above: Performed By: #### L 500.2500, L100.0100 ####[facility] [address] [place], [address] Basophils/100 WBC (Bld) 0.6 % Normal 0-1 [facility] Comment on above: Performed By: #### L 500.2500, L100.0100 ####[facility] [address] [place], [address] Eosinophils/100 WBC (Bld) 3.8 % Normal 0-5 [facility] Comment on above: Performed By: #### L 500.2500, L100.0100 ####[facility] [address] [place], [address] Erythrocyte distribution width (RBC) [Ratio] 15.5 % High 11.6-14.6 [facility] Comment on above: Performed By: #### L 500.2500, L100.0100 ####[facility] [address] [place], [address] Hematocrit (Bld) [Volume fraction] 29.7 % Low 40-54 [facility] Comment on above: Performed By: #### L 500.2500, L100.0100 ####[facility] [address] [place], [address] Hemoglobin (Bld) [Mass/Vol] 9.6 g/dL Low 13.0-16.5 [facility] Comment on above: Performed By: #### L 500.2500, L100.0100 ####[facility] [address] [place], [address] IG% 0.600 Normal 0.0-0.9 [facility] Comment on above: Result Comment: IG% - Immature Granulocytes (promyelocytes, myelocytes andmetamyelocytes) > 1% indicates that a LEFT SHIFT is Present. Performed By: #### L 500.2500, L100.0100 ####[facility] [address] [place], [address] Lymphocytes/100 WBC (Bld) 7.1 % Low 19-41 [facility] Comment on above: Performed By: #### L 500.2500, L100.0100 ####[facility] [address] [place], [address] MCH (RBC) [Entitic mass] 29.2 pg Normal 27.0-32.0 [facility] Comment on above: Performed By: #### L 500.2500, L100.0100 ####[facility] [address] [place], [address] MCHC (RBC) [Mass/Vol] 32.3 g/dL Normal 32-36 [facility] Comment on above: Performed By: #### L 500.2500, L100.0100 ####[facility] [address] [place], [address] MCV (RBC) [Entitic vol] 90.3 fL Normal 80-94 [facility] Comment on above: Performed By: #### L 500.2500, L100.0100 ####[facility] [address] [place], [address] Monocytes/100 WBC (Bld) 10.5 % High 0-10 [facility] Comment on above: Performed By: #### L 500.2500, L100.0100 ####[facility] [address] [place], [address] Neutrophils/100 WBC (Bld) 77.4 % High 47-70 [facility] Comment on above: Performed By: #### L 500.2500, L100.0100 ####[facility] [address] [place], [address] Nucleated RBC (Bld) [#/Vol] 0 10*3/uL Normal 0-5 [facility] Comment on above: Performed By: #### L 500.2500, L100.0100 ####[facility] [address] [place], [address] Platelet mean volume (Bld) [Entitic vol] 10.4 fL Normal 6.2-12.0 [facility] Comment on above: Performed By: #### L 500.2500, L100.0100 ####[facility] [address] [place], [address] Platelets (Bld) [#/Vol] 172 10*3/uL Normal 150-450 [facility] Comment on above: Performed By: #### L 500.2500, L100.0100 ####[facility] [address] [place], [address] RBC (Bld) [#/Vol] 3.29 10*6/uL Low 4.6-6.2 [facility] Comment on above: Performed By: #### L 500.2500, L100.0100 ####[facility] [address] [place], [address] RDW SD 52.0 fl High 35.1-43.9 [facility] Comment on above: Performed By: #### L 500.2500, L100.0100 ####[facility] [address] [place], [address] WBC (Bld) [#/Vol] 5.0 10*3/uL Normal 4.4-11.0 [facility] Comment on above: Performed By: #### L 500.2500, L100.0100 ####[facility] [address] [place], [address] 36on 07-07-2024 36 Spoke with Gabbi, on e of the nurse's from [facility] regarding the status of patient, since it has been awhile since our office has seen patient. Gabbi stated patient is still currently admitted to [facility], that the patient will not be able to return to [facility] as of now. 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 Gabbi provided the phone number for Jaclyn, a social contact worker with [facility] for the patient. Spoke with Jaclyn, who then advised Mala is the patient's SW. Spoke With Mala, she stated patient will stay with [facility] until over the weekend. Surgeon will reevaluate patient, and determine if anything further needs done. Also, patient is awaiting approval to stay with their TCU department, if not, Mala voiced she will seek placement elsewhere. Confirmed patient is on a wound vac, receiving IV vanco, and is starting Eliquis. Patient's nurse, Andres , confirmed everything listed above, and stated we can call back after Wednesday morning for any updates. Normal [facility] Basic Metabolic Profile (BMP )on 07-07-2024 BUN/CRE 23.7 RATIO High 10-20 [facility] Comment on above: Performed By: #### L 100.0100, L500.2500 ####[facility] [address] [place], [address] CA,Total 9.4 mg/dL Normal 8.5-10.1 [facility] Comment on above: Performed By: #### L 100.0100, L500.2500 ####[facility] [address] [place], [address] Chloride [Moles/Vol] 102 mmol/L Normal 98-107 [facility] Comment on above: Performed By: #### L 100.0100, L500.2500 ####[facility] [address] [place], [address] CO2 [Moles/Vol] 26.0 mmol/L Normal 21.0-32.0 [facility] Comment on above: Performed By: #### L 100.0100, L500.2500 ####[facility] [address] [place], [address] Creatinine [Mass/Vol] 1.56 mg/dL High 0.70-1.30 [facility] Comment on above: Result Comment: The validity of the calculated GFR GFRAA in patients over70 years has not been determined. Clinical correlation isessential. Performed By: #### L 100.0100, L500.2500 ####[facility] [address] [place], [address] ECRCL 40.52 ml/min Normal [facility] Comment on above: Performed By: #### L 100.0100, L500.2500 ####[facility] [address] [place], [address] EST GFR - AA 57 mL/min Low >60 [facility] Comment on above: Result Comment: Afri can Bruneian GFR Calc Performed By: #### L 100.0100, L500.2500 ####[facility] [address] [place], [address] GAP 8 Normal 5-15 [facility] Comment on above: Performed By: #### L 100.0100, L500.2500 ####[facility] [address] [place], [address] GFR/1.73 sq M.predicted among non-blacks MDRD (S/P/Bld) [Vol rate/Area] 47 mL/min/{1.73_m2} Low >60 [facility] Comment on above: Result Comment: Non- GFR Calc Performed By: #### L 100.0100, L500.2500 ####[facility] [address] [place], [address] Glucose [Mass/Vol] 111 mg/dL High 74-106 [facility] Comment on above: Result Comment: Fast ing Glucose result from 100 to 125 mg/dLsuggests IMPAIRED HOMEOSTASIS per A.D.A. criteria. Performed By: #### L 100.0100, L500.2500 ####[facility] [address] [place], [address] Potassium [Moles/Vol] 3.9 mmol/L Normal 3.5-5.1 [facility] Comment on above: Performed By: #### L 100.0100, L500.2500 ####[facility] [address] [place], [address] Sodium [Moles/Vol] 136 mmol/L Normal 136-145 [facility] Comment on above: Performed By: #### L 100.0100, L500.2500 ####[facility] [address] [place], [address] Urea nitrogen [Mass/Vol] 37 mg/dL High 7-18 [facility] Comment on above: Performed By: #### L 100.0100, L500.2500 ####[facility] [address] [place], [address] CBC W/Diff, Automatedon 10- Absolute Lymph 0.51 X10 3/uL Low 0.83-4.51 [facility] Comment on above: Performed By: #### L 100.0100, L500.2500 ####[facility] [address] [place], [address] Absolute Neut 4.7 X10 3/uL Normal 2.0-7.7 [facility] Comment on above: Performed By: #### L 100.0100, L500.2500 ####[facility] [address] [place], [address] Basophils/100 WBC (Bld) 1.0 % Normal 0-1 [facility] Comment on above: Performed By: #### L 100.0100, L500.2500 ####[facility] [address] [place], [address] Eosinophils/100 WBC (Bld) 2.9 % Normal 0-5 [facility] Comment on above: Performed By: #### L 100.0100, L500.2500 ####[facility] [address] [place], [address] Erythrocyte distribution width (RBC) [Ratio] 15.7 % High 11.6-14.6 [facility] Comment on above: Performed By: #### L 100.0100, L500.2500 ####[facility] [address] [place], [address] Hematocrit (Bld) [Volume fraction] 32.3 % Low 40-54 [facility] Comment on above: Performed By: #### L 100.0100, L500.2500 ####[facility] [address] [place], [address] Hemoglobin (Bld) [Mass/Vol] 10.3 g/dL Low 13.0-16.5 [facility] Comment on above: Performed By: #### L 100.0100, L500.2500 ####[facility] [address] [place], [address] IG% 0.500 Normal 0.0-0.9 [facility] Comment on above: Result Comment: IG% - Immature Granulocytes (promyelocytes, myelocytes andmetamyelocytes) > 1% indicates that a LEFT SHIFT is Present. Performed By: #### L 100.0100, L500.2500 ####[facility] [address] [place], [address] Lymphocytes/100 WBC (Bld) 8.3 % Low 19-41 [facility] Comment on above: Performed By: #### L 100.0100, L500.2500 ####[facility] [address] [place], [address] MCH (RBC) [Entitic mass] 28.9 pg Normal 27.0-32.0 [facility] Comment on above: Performed By: #### L 100.0100, L500.2500 ####[facility] [address] [place], [address] MCHC (RBC) [Mass/Vol] 31.9 g/dL Low 32-36 [facility] Comment on above: Performed By: #### L 100.0100, L500.2500 ####[facility] [address] [place], [address] MCV (RBC) [Entitic vol] 90.7 fL Normal 80-94 [facility] Comment on above: Performed By: #### L 100.0100, L500.2500 ####[facility] [address] [place], [address] Monocytes/100 WBC (Bld) 10.6 % High 0-10 [facility] Comment on above: Performed By: #### L 100.0100, L500.2500 ####[facility] [address] [place], [address] Neutrophils/100 WBC (Bld) 76.7 % High 47-70 [facility] Comment on above: Performed By: #### L 100.0100, L500.2500 ####[facility] [address] [place], [address] Nucleated RBC (Bld) [#/Vol] 0 10*3/uL Normal 0-5 [facility] Comment on above: Performed By: #### L 100.0100, L500.2500 ####[facility] [address] [place], [address] Platelet mean volume (Bld) [Entitic vol] 10.0 fL Normal 6.2-12.0 [facility] Comment on above: Performed By: #### L 100.0100, L500.2500 ####[facility] [address] [place], [address] Platelets (Bld) [#/Vol] 183 10*3/uL Normal 150-450 [facility] Comment on above: Performed By: #### L 100.0100, L500.2500 ####[facility] [address] [place], [address] RBC (Bld) [#/Vol] 3.56 10*6/uL Low 4.6-6.2 [facility] Comment on above: Performed By: #### L 100.0100, L500.2500 ####[facility] [address] [place], [address] RDW SD 52.5 fl High 35.1-43.9 [facility] Comment on above: Performed By: #### L 100.0100, L500.2500 ####[facility] [address] [place], [address] WBC (Bld) [#/Vol] 6.1 10*3/uL Normal 4.4-11.0 [facility] Comment on above: Performed By: #### L 100.0100, L500.2500 ####[facility] [address] [place], [address] Basic Metabolic Profile (BMP )on 07-06-2024 BUN/CRE 23.5 RATIO High 07-16 [facility] Comment on above: Performed By: #### L 100.0100, L500.2500 ####[facility] [address] [place], [address] CA,Total 8.7 mg/dL Normal 8.5-10.1 [facility] Comment on above: Performed By: #### L 100.0100, L500.2500 ####[facility] [address] [place], [address] Chloride [Moles/Vol] 101 mmol/L Normal 98-107 [facility] Comment on above: Performed By: #### L 100.0100, L500.2500 ####[facility] [address] [place], [address] CO2 [Moles/Vol] 27.0 mmol/L Normal 21.0-32.0 [facility] Comment on above: Performed By: #### L 100.0100, L500.2500 ####[facility] [address] [place], [address] Creatinine [Mass/Vol] 1.53 mg/dL High 0.70-1.30 [facility] Comment on above: Result Comment: The validity of the calculated GFR GFRAA in patients over70 years has not been determined. Clinical correlation isessential. Performed By: #### L 100.0100, L500.2500 ####[facility] [address] [place], [address] ECRCL 41.31 ml/min Normal [facility] Comment on above: Performed By: #### L 100.0100, L500.2500 ####[facility] [address] [place], [address] EST GFR - AA 59 mL/min Low >60 [facility] Comment on above: Result Comment: Afri can Bruneian GFR Calc Performed By: #### L 100.0100, L500.2500 ####[facility] [address] [place], [address] GAP 7 Normal 5-15 [facility] Comment on above: Performed By: #### L 100.0100, L500.2500 ####[facility] [address] [place], [address] GFR/1.73 sq M.predicted among non-blacks MDRD (S/P/Bld) [Vol rate/Area] 49 mL/min/{1.73_m2} Low >60 [facility] Comment on above: Result Comment: Non- GFR Calc Performed By: #### L 100.0100, L500.2500 ####[facility] [address] [place], [address] Glucose [Mass/Vol] 103 mg/dL Normal 74-106 [facility] Comment on above: Result Comment: Fast ing Glucose result from 100 to 125 mg/dLsuggests IMPAIRED HOMEOSTASIS per A.D.A. criteria. Performed By: #### L 100.0100, L500.2500 ####[facility] [address] [place], [address] Potassium [Moles/Vol] 3.9 mmol/L Normal 3.5-5.1 [facility] Comment on above: Performed By: #### L 100.0100, L500.2500 ####[facility] [address] [place], [address] Sodium [Moles/Vol] 135 mmol/L Low 136-145 [facility] Comment on above: Performed By: #### L 100.0100, L500.2500 ####[facility] [address] [place], [address] Urea nitrogen [Mass/Vol] 36 mg/dL High 7-18 [facility] Comment on above: Performed By: #### L 100.0100, L500.2500 ####[facility] [address] [place], [address] CBC W/Diff, Automatedon 10- 0-2024 Absolute Lymph 0.67 X10 3/uL Low 0.83-4.51 [facility] Comment on above: Performed By: #### L 100.0100, L500.2500 ####[facility] [address] [place], [address] Absolute Neut 4.7 X10 3/uL Normal 2.0-7.7 [facility] Comment on above: Performed By: #### L 100.0100, L500.2500 ####[facility] [address] [place], [address] Basophils/100 WBC (Bld) 0.6 % Normal 0-1 [facility] Comment on above: Performed By: #### L 100.0100, L500.2500 ####[facility] [address] [place], [address] Eosinophils/100 WBC (Bld) 2.0 % Normal 0-5 [facility] Comment on above: Performed By: #### L 100.0100, L500.2500 ####[facility] [address] [place], [address] Erythrocyte distribution width (RBC) [Ratio] 15.9 % High 11.6-14.6 [facility] Comment on above: Performed By: #### L 100.0100, L500.2500 ####[facility] [address] [place], [address] Hematocrit (Bld) [Volume fraction] 30.9 % Low 40-54 [facility] Comment on above: Performed By: #### L 100.0100, L500.2500 ####[facility] [address] [place], [address] Hemoglobin (Bld) [Mass/Vol] 9.8 g/dL Low 13.0-16.5 [facility] Comment on above: Performed By: #### L 100.0100, L500.2500 ####[facility] [address] [place], [address] IG% 0.500 Normal 0.0-0.9 [facility] Comment on above: Result Comment: IG% - Immature Granulocytes (promyelocytes, myelocytes andmetamyelocytes) > 1% indicates that a LEFT SHIFT is Present. Performed By: #### L 100.0100, L500.2500 ####[facility] [address] [place], [address] Lymphocytes/100 WBC (Bld) 10.2 % Low 19-41 [facility] Comment on above: Performed By: #### L 100.0100, L500.2500 ####[facility] [address] [place], [address] MCH (RBC) [Entitic mass] 28.7 pg Normal 27.0-32.0 [facility] Comment on above: Performed By: #### L 100.0100, L500.2500 ####[facility] [address] [place], [address] MCHC (RBC) [Mass/Vol] 31.7 g/dL Low 32-36 [facility] Comment on above: Performed By: #### L 100.0100, L500.2500 ####[facility] [address] [place], [address] MCV (RBC) [Entitic vol] 90.6 fL Normal 80-94 [facility] Comment on above: Performed By: #### L 100.0100, L500.2500 ####[facility] [address] [place], [address] Monocytes/100 WBC (Bld) 14.8 % High 0-10 [facility] Comment on above: Performed By: #### L 100.0100, L500.2500 ####[facility] [address] [place], [address] Neutrophils/100 WBC (Bld) 71.9 % High 47-70 [facility] Comment on above: Performed By: #### L 100.0100, L500.2500 ####[facility] [address] [place], [address] Nucleated RBC (Bld) [#/Vol] 0 10*3/uL Normal 0-5 [facility] Comment on above: Performed By: #### L 100.0100, L500.2500 ####[facility] [address] [place], [address] Platelet mean volume (Bld) [Entitic vol] 9.6 fL Normal 6.2-12.0 [facility] Comment on above: Performed By: #### L 100.0100, L500.2500 ####[facility] [address] [place], [address] Platelets (Bld) [#/Vol] 177 10*3/uL Normal 150-450 [facility] Comment on above: Performed By: #### L 100.0100, L500.2500 ####[facility] [address] [place], [address] RBC (Bld) [#/Vol] 3.41 10*6/uL Low 4.6-6.2 [facility] Comment on above: Performed By: #### L 100.0100, L500.2500 ####[facility] [address] [place], [address] RDW SD 52.6 fl High 35.1-43.9 [facility] Comment on above: Performed By: #### L 100.0100, L500.2500 ####[facility] [address] [place], [address] WBC (Bld) [#/Vol] 6.6 10*3/uL Normal 4.4-11.0 [facility] Comment on above: Performed By: #### L 100.0100, L500.2500 ####[facility] [address] [place], [address] Basic Metabolic Profile (BMP )on 07-05-2024 BUN/CRE 19.2 RATIO Normal 10-20 [facility] Comment on above: Performed By: #### L 100.0100, L500.2500 ####[facility] [address] [place], [address] CA,Total 8.8 mg/dL Normal 8.5-10.1 [facility] Comment on above: Performed By: #### L 100.0100, L500.2500 ####[facility] [address] [place], [address] Chloride [Moles/Vol] 101 mmol/L Normal 98-107 [facility] Comment on above: Performed By: #### L 100.0100, L500.2500 ####[facility] [address] [place], [address] CO2 [Moles/Vol] 28.0 mmol/L Normal 21.0-32.0 [facility] Comment on above: Performed By: #### L 100.0100, L500.2500 ####[facility] [address] [place], [address] Creatinine [Mass/Vol] 1.46 mg/dL High 0.70-1.30 [facility] Comment on above: Result Comment: The validity of the calculated GFR GFRAA in patients over70 years has not been determined. Clinical correlation isessential. Performed By: #### L 100.0100, L500.2500 ####[facility] [address] [place], [address] ECRCL 49.40 ml/min Normal [facility] Comment on above: Performed By: #### L 100.0100, L500.2500 ####[facility] [address] [place], [address] EST GFR - AA 62 mL/min Normal >60 [facility] Comment on above: Result Comment: Afri can Brune[place] GFR Calc Performed By: #### L 100.0100, L500.2500 ####[facility] [address] [place], [address] GAP 6 Normal 5-15 [facility] Comment on above: Performed By: #### L 100.0100, L500.2500 ####[facility] [address] [place], [address] GFR/1.73 sq M.predicted among non-blacks MDRD (S/P/Bld) [Vol rate/Area] 51 mL/min/{1.73_m2} Low >60 [facility] Comment on above: Result Comment: Non- GFR Calc Performed By: #### L 100.0100, L500.2500 ####[facility] [address] [place], [address] Glucose [Mass/Vol] 109 mg/dL High 74-106 [facility] Comment on above: Result Comment: Fast ing Glucose result from 100 to 125 mg/dLsuggests IMPAIRED HOMEOSTASIS per A.D.A. criteria. Performed By: #### L 100.0100, L500.2500 ####[facility] [address] [place], [address] Potassium [Moles/Vol] 4.2 mmol/L Normal 3.5-5.1 [facility] Comment on above: Performed By: #### L 100.0100, L500.2500 ####[facility] [address] [place], [address] Sodium [Moles/Vol] 135 mmol/L Low 136-145 [facility] Comment on above: Performed By: #### L 100.0100, L500.2500 ####[facility] [address] [place], [address] Urea nitrogen [Mass/Vol] 28 mg/dL High 7-18 [facility] Comment on above: Performed By: #### L 100.0100, L500.2500 ####[facility] [address] [place], [address] CBC W/Diff, Automatedon 10-0 9-2023 Absolute Lymph 0.32 X10 3/uL Low 0.83-4.51 [facility] Comment on above: Performed By: #### L 100.0100, L500.2500 ####[facility] [address] [place], [address] Absolute Neut 6.3 X10 3/uL Normal 2.0-7.7 [facility] Comment on above: Performed By: #### L 100.0100, L500.2500 ####[facility] [address] [place], [address] Basophils/100 WBC (Bld) 0.7 % Normal 0-1 [facility] Comment on above: Performed By: #### L 100.0100, L500.2500 ####[facility] [address] [place], [address] Eosinophils/100 WBC (Bld) 1.5 % Normal 0-5 [facility] Comment on above: Performed By: #### L 100.0100, L500.2500 ####[facility] [address] [place], [address] Erythrocyte distribution width (RBC) [Ratio] 15.8 % High 11.6-14.6 [facility] Comment on above: Performed By: #### L 100.0100, L500.2500 ####[facility] [address] [place], [address] Hematocrit (Bld) [Volume fraction] 33.9 % Low 40-54 [facility] Comment on above: Performed By: #### L 100.0100, L500.2500 ####[facility] [address] [place], [address] Hemoglobin (Bld) [Mass/Vol] 10.7 g/dL Low 13.0-16.5 [facility] Comment on above: Performed By: #### L 100.0100, L500.2500 ####[facility] [address] [place], [address] IG% 0.400 Normal 0.0-0.9 [facility] Comment on above: Result Comment: IG% - Immature Granulocytes (promyelocytes, myelocytes andmetamyelocytes) > 1% indicates that a LEFT SHIFT is Present. Performed By: #### L 100.0100, L500.2500 ####[facility] [address] [place], [address] Lymphocytes/100 WBC (Bld) 4.2 % Low 19-41 [facility] Comment on above: Performed By: #### L 100.0100, L500.2500 ####[facility] [address] [place], [address] MCH (RBC) [Entitic mass] 28.6 pg Normal 27.0-32.0 [facility] Comment on above: Performed By: #### L 100.0100, L500.2500 ####[facility] [address] [place], [address] MCHC (RBC) [Mass/Vol] 31.6 g/dL Low 32-36 [facility] Comment on above: Performed By: #### L 100.0100, L500.2500 ####[facility] [address] [place], [address] MCV (RBC) [Entitic vol] 90.6 fL Normal 80-94 [facility] Comment on above: Performed By: #### L 100.0100, L500.2500 ####[facility] [address] [place], [address] Monocytes/100 WBC (Bld) 9.4 % Normal 0-10 [facility] Comment on above: Performed By: #### L 100.0100, L500.2500 ####[facility] [address] [place], [address] Neutrophils/100 WBC (Bld) 83.8 % High 47-70 [facility] Comment on above: Performed By: #### L 100.0100, L500.2500 ####[facility] [address] [place], [address] Nucleated RBC (Bld) [#/Vol] 0 10*3/uL Normal 0-5 [facility] Comment on above: Performed By: #### L 100.0100, L500.2500 ####[facility] [address] [place], [address] Platelet mean volume (Bld) [Entitic vol] 9.6 fL Normal 6.2-12.0 [facility] Comment on above: Performed By: #### L 100.0100, L500.2500 ####[facility] [address] [place], [address] Platelets (Bld) [#/Vol] 218 10*3/uL Normal 150-450 [facility] Comment on above: Performed By: #### L 100.0100, L500.2500 ####[facility] [address] [place], [address] RBC (Bld) [#/Vol] 3.74 10*6/uL Low 4.6-6.2 [facility] Comment on above: Performed By: #### L 100.0100, L500.2500 ####[facility] [address] [place], [address] RDW SD 52.6 fl High 35.1-43.9 [facility] Comment on above: Performed By: #### L 100.0100, L500.2500 ####[facility] [address] [place], [address] WBC (Bld) [#/Vol] 7.5 10*3/uL Normal 4.4-11.0 [facility] Comment on above: Performed By: #### L 100.0100, L500.2500 ####[facility] [address] [place], [address] Absolute Neut Normal 2.0-7.7 [facility] Comment on above: Result Comment: PER OM Performed By: #### L 500.4050, L100.0100 ####[facility] [address] [place], [address] HCT Normal 40-54 [facility] Comment on above: Result Comment: PER OM Performed By: #### L 500.4050, L100.0100 ####[facility] [address] [place], [address] HGB Normal 13.0-16.5 [facility] Comment on above: Result Comment: PER OM Performed By: #### L 500.4050, L100.0100 ####[facility] [address] [place], [address] MCH Normal 27.0-32.0 [facility] Comment on above: Result Comment: PER OM Performed By: #### L 500.4050, L100.0100 ####[facility] [address] [place], [address] MCHC Normal 32-36 [facility] Comment on above: Result Comment: PER OM Performed By: #### L 500.4050, L100.0100 ####[facility] [address] [place], [address] MCV Normal 80-94 [facility] Comment on above: Result Comment: PER OM Performed By: #### L 500.4050, L100.0100 ####[facility] [address] [place], [address] NEUT% Normal 47-70 [facility] Comment on above: Result Comment: PER OM Performed By: #### L 500.4050, L100.0100 ####[facility] [address] [place], [address] PLT Normal 150-450 [facility] Comment on above: Result Comment: PER OM Performed By: #### L 500.4050, L100.0100 ####[facility] [address] [place], [address] RBC Normal 4.6-6.2 [facility] Comment on above: Result Comment: PER OM Performed By: #### L 500.4050, L100.0100 ####[facility] [address] [place], [address] RDW CV Normal 11.6-14.6 [facility] Comment on above: Result Comment: PER OM Performed By: #### L 500.4050, L100.0100 ####[facility] [address] [place], [address] RDW SD Normal 35.1-43.9 [facility] Comment on above: Result Comment: PER OM Performed By: #### L 500.4050, L100.0100 ####[facility] [address] [place], [address] WBC Normal 4.4-11.0 [facility] Comment on above: Result Comment: PER OM Performed By: #### L 500.4050, L100.0100 ####[facility] [address] [place], [address] Comprehensive Metabolic Prof ilon 07-05-2024 ALB Normal 3.2-5.0 [facility] Comment on above: Result Comment: PER OM Performed By: #### L 500.4050, L100.0100 ####[facility] [address] [place], [address] ALK P Normal 45-117 [facility] Comment on above: Result Comment: PER OM Performed By: #### L 500.4050, L100.0100 ####[facility] [address] [place], [address] ALT Normal 16-61 [facility] Comment on above: Result Comment: PER OM Performed By: #### L 500.4050, L100.0100 ####[facility] [address] [place], [address] AST Normal 15-37 [facility] Comment on above: Result Comment: PER OM Performed By: #### L 500.4050, L100.0100 ####[facility] [address] [place], [address] BUN Normal 7-18 [facility] Comment on above: Result Comment: PER OM Performed By: #### L 500.4050, L100.0100 ####[facility] [address] [place], [address] BUN/CRE Normal 10-20 [facility] Comment on above: Result Comment: PER OM Performed By: #### L 500.4050, L100.0100 ####[facility] [address] [place], [address] CA,Total Normal 8.5-10.1 [facility] Comment on above: Result Comment: PER OM Performed By: #### L 500.4050, L100.0100 ####[facility] [address] [place], [address] CL Normal 98-107 [facility] Comment on above: Result Comment: PER OM Performed By: #### L 500.4050, L100.0100 ####[facility] [address] [place], [address] CO2 Normal 21.0-32.0 [facility] Comment on above: Result Comment: PER OM Performed By: #### L 500.4050, L100.0100 ####[facility] [address] [place], [address] CREAT,SERUM Normal 0.70-1.30 [facility] Comment on above: Result Comment: PER OM Performed By: #### L 500.4050, L100.0100 ####[facility] [address] [place], [address] EST GFR Normal >60 [facility] Comment on above: Result Comment: PER OM Performed By: #### L 500.4050, L100.0100 ####[facility] [address] [place], [address] EST GFR - AA Normal >60 [facility] Comment on above: Result Comment: PER OM Performed By: #### L 500.4050, L100.0100 ####[facility] [address] [place], [address] GAP Normal 5-15 [facility] Comment on above: Result Comment: PER OM Performed By: #### L 500.4050, L100.0100 ####[facility] [address] [place], [address] GLU Normal 74-106 [facility] Comment on above: Result Comment: PER OM Performed By: #### L 500.4050, L100.0100 ####[facility] [address] [place], [address] Potassium Normal 3.5-5.1 [facility] Comment on above: Result Comment: PER OM Performed By: #### L 500.4050, L100.0100 ####[facility] [address] [place], [address] T BILI Normal 0.20-1.00 [facility] Comment on above: Result Comment: PER OM Performed By: #### L 500.4050, L100.0100 ####[facility] [address] [place], [address] T PROT Normal 6.4-8.2 [facility] Comment on above: Result Comment: PER OM Performed By: #### L 500.4050, L100.0100 ####[facility] [address] [place], [address] Comprehensive Metabolic Profil Normal 136-145 [facility] Comment on above: Result Comment: PER OM Performed By: #### L 500.4050, L100.0100 ####[facility] [address] [place], [address] Vancomycin, Trough Levelon 1 - VANCO, TROUGH 16.9 ug/mL High 5.0-15.0 [facility] Comment on above: Order Comment: Comme nts: Trough to be drawn 30 mins prior to scheduled [id number] Result Comment: VANC OMYCIN STANDARED DRUG THERAPY TROUGH LEVEL: 5.0 - 15.0 mg/LVANCOMYCIN HIGH INTENSITY THERAPY TROUGH LEVEL: 15.0 - 20.0 mg/LHigh Intensity therapy recommended for serious lifethreatening infections include:- Rcxyfeknzd-Jvqkdykmckkf-Xnjhthwyo (Ventilator/Healtcare Associated)-SepsisPLEASE CONTACT PHARMACY SERVICES (#3992) FOR INTERPRETATIONOF RESULTS. Performed By: #### L 501.8820 ####[facility] [address] [place], [address] 12 Lead EKGon 07-04-2024 12 Lead EKG Normal [facility] Basic Metabolic Profile (BMP )on 07-04-2024 BUN/CRE 27.2 RATIO High 07-16 [facility] Comment on above: Performed By: #### L 100.0100, L501.9520, L500.2500 ####[facility] [address] [place], [address] CA,Total 9.5 mg/dL Normal 8.5-10.1 [facility] Comment on above: Performed By: #### L 100.0100, L501.9520, L500.2500 ####[facility] [address] [place], [address] Chloride [Moles/Vol] 102 mmol/L Normal 98-107 [facility] Comment on above: Performed By: #### L 100.0100, L501.9520, L500.2500 ####[facility] [address] [place], [address] CO2 [Moles/Vol] 29.0 mmol/L Normal 21.0-32.0 [facility] Comment on above: Performed By: #### L 100.0100, L501.9520, L500.2500 ####[facility] [address] [place], [address] Creatinine [Mass/Vol] 1.36 mg/dL High 0.70-1.30 [facility] Comment on above: Result Comment: The validity of the calculated GFR GFRAA in patients over70 years has not been determined. Clinical correlation isessential. Performed By: #### L 100.0100, L501.9520, L500.2500 ####[facility] [address] [place], [address] ECRCL 52.98 ml/min Normal [facility] Comment on above: Performed By: #### L 100.0100, L501.9520, L500.2500 ####[facility] [address] [place], [address] EST GFR - AA 67 mL/min Normal >60 [facility] Comment on above: Result Comment: Afri can Bruneian GFR Calc Performed By: #### L 100.0100, L501.9520, L500.2500 ####[facility] [address] [place], [address] GAP 6 Normal 5-15 [facility] Comment on above: Performed By: #### L 100.0100, L501.9520, L500.2500 ####[facility] [address] [place], [address] GFR/1.73 sq M.predicted among non-blacks MDRD (S/P/Bld) [Vol rate/Area] 56 mL/min/{1.73_m2} Low >60 [facility] Comment on above: Result Comment: Non- GFR Calc Performed By: #### L 100.0100, L501.9520, L500.2500 ####[facility] [address] [place], [address] Glucose [Mass/Vol] 98 mg/dL Normal 74-106 [facility] Comment on above: Performed By: #### L 100.0100, L501.9520, L500.2500 ####[facility] [address] [place], [address] Potassium [Moles/Vol] 4.0 mmol/L Normal 3.5-5.1 [facility] Comment on above: Performed By: #### L 100.0100, L501.9520, L500.2500 ####[facility] [address] [place], [address] Sodium [Moles/Vol] 137 mmol/L Normal 136-145 [facility] Comment on above: Performed By: #### L 100.0100, L501.9520, L500.2500 ####[facility] [address] [place], [address] Urea nitrogen [Mass/Vol] 37 mg/dL High 7-18 [facility] Comment on above: Performed By: #### L 100.0100, L501.9520, L500.2500 ####[facility] [address] [place], [address] CBC W/Diff, Automatedon 10-0 8-2023 Absolute Lymph 0.49 X10 3/uL Low 0.83-4.51 [facility] Comment on above: Performed By: #### L 100.0100, L501.9520, L500.2500 ####[facility] [address] [place], [address] Absolute Neut 2.9 X10 3/uL Normal 2.0-7.7 [facility] Comment on above: Performed By: #### L 100.0100, L501.9520, L500.2500 ####[facility] [address] [place], [address] Basophils/100 WBC (Bld) 1.2 % High 0-1 [facility] Comment on above: Performed By: #### L 100.0100, L501.9520, L500.2500 ####[facility] [address] [place], [address] Eosinophils/100 WBC (Bld) 6.0 % High 0-5 [facility] Comment on above: Performed By: #### L 100.0100, L501.9520, L500.2500 ####[facility] [address] [place], [address] Erythrocyte distribution width (RBC) [Ratio] 15.9 % High 11.6-14.6 [facility] Comment on above: Performed By: #### L 100.0100, L501.9520, L500.2500 ####[facility] [address] [place], [address] Hematocrit (Bld) [Volume fraction] 32.8 % Low 40-54 [facility] Comment on above: Performed By: #### L 100.0100, L501.9520, L500.2500 ####[facility] [address] [place], [address] Hemoglobin (Bld) [Mass/Vol] 10.4 g/dL Low 13.0-16.5 [facility] Comment on above: Performed By: #### L 100.0100, L501.9520, L500.2500 ####[facility] [address] [place], [address] IG% 0.500 Normal 0.0-0.9 [facility] Comment on above: Result Comment: IG% - Immature Granulocytes (promyelocytes, myelocytes andmetamyelocytes) > 1% indicates that a LEFT SHIFT is Present. Performed By: #### L 100.0100, L501.9520, L500.2500 ####[facility] [address] [place], [address] Lymphocytes/100 WBC (Bld) 11.4 % Low 19-41 [facility] Comment on above: Performed By: #### L 100.0100, L501.9520, L500.2500 ####[facility] [address] [place], [address] MCH (RBC) [Entitic mass] 29.0 pg Normal 27.0-32.0 [facility] Comment on above: Performed By: #### L 100.0100, L501.9520, L500.2500 ####[facility] [address] [place], [address] MCHC (RBC) [Mass/Vol] 31.7 g/dL Low 32-36 [facility] Comment on above: Performed By: #### L 100.0100, L501.9520, L500.2500 ####[facility] [address] [place], [address] MCV (RBC) [Entitic vol] 91.4 fL Normal 80-94 [facility] Comment on above: Performed By: #### L 100.0100, L501.9520, L500.2500 ####[facility] [address] [place], [address] Monocytes/100 WBC (Bld) 13.0 % High 0-10 [facility] Comment on above: Performed By: #### L 100.0100, L501.9520, L500.2500 ####[facility] [address] [place], [address] Neutrophils/100 WBC (Bld) 67.9 % Normal 47-70 [facility] Comment on above: Performed By: #### L 100.0100, L501.9520, L500.2500 ####[facility] [address] [place], [address] Nucleated RBC (Bld) [#/Vol] 0 10*3/uL Normal 0-5 [facility] Comment on above: Performed By: #### L 100.0100, L501.9520, L500.2500 ####[facility] [address] [place], [address] Platelet mean volume (Bld) [Entitic vol] 10.2 fL Normal 6.2-12.0 [facility] Comment on above: Performed By: #### L 100.0100, L501.9520, L500.2500 ####[facility] [address] [place], [address] Platelets (Bld) [#/Vol] 229 10*3/uL Normal 150-450 [facility] Comment on above: Performed By: #### L 100.0100, L501.9520, L500.2500 ####[facility] [address] [place], [address] RBC (Bld) [#/Vol] 3.59 10*6/uL Low 4.6-6.2 [facility] Comment on above: Performed By: #### L 100.0100, L501.9520, L500.2500 ####[facility] [address] [place], [address] RDW SD 53.7 fl High 35.1-43.9 [facility] Comment on above: Performed By: #### L 100.0100, L501.9520, L500.2500 ####[facility] [address] [place], [address] WBC (Bld) [#/Vol] 4.3 10*3/uL Low 4.4-11.0 [facility] Comment on above: Performed By: #### L 100.0100, L501.9520, L500.2500 ####[facility] [address] [place], [address] Culture, Anaerobic Any Sourc bobby 07-04-2024 CUAN COLLECTED IN OR-CERVICAL/THORACIC WOUND #1 No growth in 5 days. Normal [facility] Comment on above: Performed By: #### M 100.3000, M100.2000, M100.4001 ####[facility] [address] [place], [address] H AND P Exam - Surgicalon H&P Exam - Surgical Normal [facility] MR/POSTOP.ANEon 07-04-2024 MR/POSTOP.ANE Normal [facility] Operative Reporton Operative Report Normal [facility] Operative Report Normal [facility] Partial Thromboplast Timeon 07-04-2024 aPTT Coag (Bld) [Time] 34.2 s Normal 24.1-36.2 [facility] Comment on above: Performed By: #### B TS, [id number], L300.3900, L300.4310 ####[facility] [address] [place], [address] Prothrombin Time w/INRon INR Coag (PPP) [Relative time] 1.2 {INR} Normal [facility] Comment on above: Performed By: #### B TS, [id number], L300.3900, L300.4310 ####[facility] [address] [place], [address] PT Coag (PPP) [Time] 15.0 s High 11.7-14.9 [facility] Comment on above: Performed By: #### B TS, [id number], L300.3900, L300.4310 ####[facility] [address] [place], [address] Thyroid Stim Hormone (TSH)on 07-04-2024 TSH 6.430 uIU/mL High 0.358-3.740 [facility] Comment on above: Performed By: #### L 100.0100, L501.9520, L500.2500 ####[facility] [address] [place], [address] Type AND Screenon 07-04-2024 ABO and Rh group Nom (Bld) Blood group AB Rh(D) positive Normal [facility] Comment on above: Order Comment: S Performed By: #### B TS, [id number], L300.3900, L300.4310 ####[facility] [address] [place], [address] Basic Metabolic Profile (BMP )on 07-03-2024 BUN/CRE 26.1 RATIO High 10-20 [facility] Comment on above: Performed By: #### L 100.0100, L500.2500 ####[facility] [address] [place], [address] CA,Total 9.6 mg/dL Normal 8.5-10.1 [facility] Comment on above: Performed By: #### L 100.0100, L500.2500 ####[facility] [address] [place], [address] Chloride [Moles/Vol] 100 mmol/L Normal 98-107 [facility] Comment on above: Performed By: #### L 100.0100, L500.2500 ####[facility] [address] [place], [address] CO2 [Moles/Vol] 30.0 mmol/L Normal 21.0-32.0 [facility] Comment on above: Performed By: #### L 100.0100, L500.2500 ####[facility] [address] [place], [address] Creatinine [Mass/Vol] 1.38 mg/dL High 0.70-1.30 [facility] Comment on above: Result Comment: The validity of the calculated GFR GFRAA in patients over70 years has not been determined. Clinical correlation isessential. Performed By: #### L 100.0100, L500.2500 ####[facility] [address] [place], [address] ECRCL 52.27 ml/min Normal [facility] Comment on above: Performed By: #### L 100.0100, L500.2500 ####[facility] [address] [place], [address] EST GFR - AA 66 mL/min Normal >60 [facility] Comment on above: Result Comment: Afri can [place] GFR Calc Performed By: #### L 100.0100, L500.2500 ####[facility] [address] [place], [address] GAP 5 Normal 5-15 [facility] Comment on above: Performed By: #### L 100.0100, L500.2500 ####[facility] [address] [place], [address] GFR/1.73 sq M.predicted among non-blacks MDRD (S/P/Bld) [Vol rate/Area] 55 mL/min/{1.73_m2} Low >60 [facility] Comment on above: Result Comment: Non- GFR Calc Performed By: #### L 100.0100, L500.2500 ####[facility] [address] [place], [address] Glucose [Mass/Vol] 102 mg/dL Normal 74-106 [facility] Comment on above: Result Comment: Fast ing Glucose result from 100 to 125 mg/dLsuggests IMPAIRED HOMEOSTASIS per A.D.A. criteria. Performed By: #### L 100.0100, L500.2500 ####[facility] [address] [place], [address] Potassium [Moles/Vol] 4.0 mmol/L Normal 3.5-5.1 [facility] Comment on above: Performed By: #### L 100.0100, L500.2500 ####[facility] [address] [place], [address] Sodium [Moles/Vol] 136 mmol/L Normal 136-145 [facility] Comment on above: Performed By: #### L 100.0100, L500.2500 ####[facility] [address] [place], [address] Urea nitrogen [Mass/Vol] 36 mg/dL High 7-18 [facility] Comment on above: Performed By: #### L 100.0100, L500.2500 ####[facility] [address] [place], [address] CBC W/Diff, Automatedon 10-0 7-2024 Absolute Lymph 0.53 X10 3/uL Low 0.83-4.51 [facility] Comment on above: Performed By: #### L 100.0100, L500.2500 ####[facility] [address] [place], [address] Absolute Neut 3.7 X10 3/uL Normal 2.0-7.7 [facility] Comment on above: Performed By: #### L 100.0100, L500.2500 ####[facility] [address] [place], [address] Basophils/100 WBC (Bld) 1.1 % High 0-1 [facility] Comment on above: Performed By: #### L 100.0100, L500.2500 ####[facility] [address] [place], [address] Eosinophils/100 WBC (Bld) 5.6 % High 0-5 [facility] Comment on above: Performed By: #### L 100.0100, L500.2500 ####[facility] [address] [place], [address] Erythrocyte distribution width (RBC) [Ratio] 16.2 % High 11.6-14.6 [facility] Comment on above: Performed By: #### L 100.0100, L500.2500 ####[facility] [address] [place], [address] Hematocrit (Bld) [Volume fraction] 31.7 % Low 40-54 [facility] Comment on above: Performed By: #### L 100.0100, L500.2500 ####[facility] [address] [place], [address] Hemoglobin (Bld) [Mass/Vol] 9.9 g/dL Low 13.0-16.5 [facility] Comment on above: Performed By: #### L 100.0100, L500.2500 ####[facility] [address] [place], [address] IG% 0.600 Normal 0.0-0.9 [facility] Comment on above: Result Comment: IG% - Immature Granulocytes (promyelocytes, myelocytes andmetamyelocytes) > 1% indicates that a LEFT SHIFT is Present. Performed By: #### L 100.0100, L500.2500 ####[facility] [address] [place], [address] Lymphocytes/100 WBC (Bld) 9.9 % Low 19-41 [facility] Comment on above: Performed By: #### L 100.0100, L500.2500 ####[facility] [address] [place], [address] MCH (RBC) [Entitic mass] 28.8 pg Normal 27.0-32.0 [facility] Comment on above: Performed By: #### L 100.0100, L500.2500 ####[facility] [address] [place], [address] MCHC (RBC) [Mass/Vol] 31.2 g/dL Low 32-36 [facility] Comment on above: Performed By: #### L 100.0100, L500.2500 ####[facility] [address] [place], [address] MCV (RBC) [Entitic vol] 92.2 fL Normal 80-94 [facility] Comment on above: Performed By: #### L 100.0100, L500.2500 ####[facility] [address] [place], [address] Monocytes/100 WBC (Bld) 13.8 % High 0-10 [facility] Comment on above: Performed By: #### L 100.0100, L500.2500 ####[facility] [address] [place], [address] Neutrophils/100 WBC (Bld) 69.0 % Normal 47-70 [facility] Comment on above: Performed By: #### L 100.0100, L500.2500 ####[facility] [address] [place], [address] Nucleated RBC (Bld) [#/Vol] 0 10*3/uL Normal 0-5 [facility] Comment on above: Performed By: #### L 100.0100, L500.2500 ####[facility] [address] [place], [address] Platelet mean volume (Bld) [Entitic vol] 10.1 fL Normal 6.2-12.0 [facility] Comment on above: Performed By: #### L 100.0100, L500.2500 ####[facility] [address] [place], [address] Platelets (Bld) [#/Vol] 238 10*3/uL Normal 150-450 [facility] Comment on above: Performed By: #### L 100.0100, L500.2500 ####[facility] [address] [place], [address] RBC (Bld) [#/Vol] 3.44 10*6/uL Low 4.6-6.2 [facility] Comment on above: Performed By: #### L 100.0100, L500.2500 ####[facility] [address] [place], [address] RDW SD 54.4 fl High 35.1-43.9 [facility] Comment on above: Performed By: #### L 100.0100, L500.2500 ####[facility] [address] [place], [address] WBC (Bld) [#/Vol] 5.4 10*3/uL Normal 4.4-11.0 [facility] Comment on above: Performed By: #### L 100.0100, L500.2500 ####[facility] [address] [place], [address] Basic Metabolic Profile (BMP )on 07-02-2024 BUN/CRE 22.3 RATIO High 10-20 [facility] Comment on above: Performed By: #### L 500.2500, L100.0100 ####[facility] [address] [place], [address] CA,Total 9.2 mg/dL Normal 8.5-10.1 [facility] Comment on above: Performed By: #### L 500.2500, L100.0100 ####[facility] [address] [place], [address] Chloride [Moles/Vol] 102 mmol/L Normal 98-107 [facility] Comment on above: Performed By: #### L 500.2500, L100.0100 ####[facility] [address] [place], [address] CO2 [Moles/Vol] 29.0 mmol/L Normal 21.0-32.0 [facility] Comment on above: Performed By: #### L 500.2500, L100.0100 ####[facility] [address] [place], [address] Creatinine [Mass/Vol] 1.48 mg/dL High 0.70-1.30 [facility] Comment on above: Result Comment: The validity of the calculated GFR GFRAA in patients over70 years has not been determined. Clinical correlation isessential. Performed By: #### L 500.2500, L100.0100 ####[facility] [address] [place], [address] ECRCL 49.57 ml/min Normal [facility] Comment on above: Performed By: #### L 500.2500, L100.0100 ####[facility] [address] [place], [address] EST GFR - AA 61 mL/min Normal >60 [facility] Comment on above: Result Comment: Afri can Bruneian GFR Calc Performed By: #### L 500.2500, L100.0100 ####[facility] [address] [place], [address] GAP 6 Normal 5-15 [facility] Comment on above: Performed By: #### L 500.2500, L100.0100 ####[facility] [address] [place], [address] GFR/1.73 sq M.predicted among non-blacks MDRD (S/P/Bld) [Vol rate/Area] 50 mL/min/{1.73_m2} Low >60 [facility] Comment on above: Result Comment: Non- GFR Calc Performed By: #### L 500.2500, L100.0100 ####[facility] [address] [place], [address] Glucose [Mass/Vol] 103 mg/dL Normal 74-106 [facility] Comment on above: Result Comment: Fast ing Glucose result from 100 to 125 mg/dLsuggests IMPAIRED HOMEOSTASIS per A.D.A. criteria. Performed By: #### L 500.2500, L100.0100 ####[facility] [address] [place], [address] Potassium [Moles/Vol] 3.9 mmol/L Normal 3.5-5.1 [facility] Comment on above: Performed By: #### L 500.2500, L100.0100 ####[facility] [address] [place], [address] Sodium [Moles/Vol] 137 mmol/L Normal 136-145 [facility] Comment on above: Performed By: #### L 500.2500, L100.0100 ####[facility] [address] [place], [address] Urea nitrogen [Mass/Vol] 33 mg/dL High 7-18 [facility] Comment on above: Performed By: #### L 500.2500, L100.0100 ####[facility] [address] [place], [address] CBC W/Diff, Automatedon 10-0 6-2023 Absolute Lymph 0.48 X10 3/uL Low 0.83-4.51 [facility] Comment on above: Performed By: #### L 500.2500, L100.0100 ####[facility] [address] [place], [address] Absolute Neut 3.3 X10 3/uL Normal 2.0-7.7 [facility] Comment on above: Performed By: #### L 500.2500, L100.0100 ####[facility] [address] [place], [address] Basophils/100 WBC (Bld) 1.0 % Normal 0-1 [facility] Comment on above: Performed By: #### L 500.2500, L100.0100 ####[facility] [address] [place], [address] Eosinophils/100 WBC (Bld) 6.5 % High 0-5 [facility] Comment on above: Performed By: #### L 500.2500, L100.0100 ####[facility] [address] [place], [address] Erythrocyte distribution width (RBC) [Ratio] 16.4 % High 11.6-14.6 [facility] Comment on above: Performed By: #### L 500.2500, L100.0100 ####[facility] [address] [place], [address] Hematocrit (Bld) [Volume fraction] 31.1 % Low 40-54 [facility] Comment on above: Performed By: #### L 500.2500, L100.0100 ####[facility] [address] [place], [address] Hemoglobin (Bld) [Mass/Vol] 9.7 g/dL Low 13.0-16.5 [facility] Comment on above: Performed By: #### L 500.2500, L100.0100 ####[facility] [address] [place], [address] IG% 0.800 Normal 0.0-0.9 [facility] Comment on above: Result Comment: IG% - Immature Granulocytes (promyelocytes, myelocytes andmetamyelocytes) > 1% indicates that a LEFT SHIFT is Present. Performed By: #### L 500.2500, L100.0100 ####[facility] [address] [place], [address] Lymphocytes/100 WBC (Bld) 10.0 % Low 19-41 [facility] Comment on above: Performed By: #### L 500.2500, L100.0100 ####[facility] [address] [place], [address] MCH (RBC) [Entitic mass] 28.8 pg Normal 27.0-32.0 [facility] Comment on above: Performed By: #### L 500.2500, L100.0100 ####[facility] [address] [place], [address] MCHC (RBC) [Mass/Vol] 31.2 g/dL Low 32-36 [facility] Comment on above: Performed By: #### L 500.2500, L100.0100 ####[facility] [address] [place], [address] MCV (RBC) [Entitic vol] 92.3 fL Normal 80-94 [facility] Comment on above: Performed By: #### L 500.2500, L100.0100 ####[facility] [address] [place], [address] Monocytes/100 WBC (Bld) 13.4 % High 0-10 [facility] Comment on above: Performed By: #### L 500.2500, L100.0100 ####[facility] [address] [place], [address] Neutrophils/100 WBC (Bld) 68.3 % Normal 47-70 [facility] Comment on above: Performed By: #### L 500.2500, L100.0100 ####[facility] [address] [place], [address] Nucleated RBC (Bld) [#/Vol] 0 10*3/uL Normal 0-5 [facility] Comment on above: Performed By: #### L 500.2500, L100.0100 ####[facility] [address] [place], [address] Platelet mean volume (Bld) [Entitic vol] 10.4 fL Normal 6.2-12.0 [facility] Comment on above: Performed By: #### L 500.2500, L100.0100 ####[facility] [address] [place], [address] Platelets (Bld) [#/Vol] 256 10*3/uL Normal 150-450 [facility] Comment on above: Performed By: #### L 500.2500, L100.0100 ####[facility] [address] [place], [address] RBC (Bld) [#/Vol] 3.37 10*6/uL Low 4.6-6.2 [facility] Comment on above: Performed By: #### L 500.2500, L100.0100 ####[facility] [address] [place], [address] RDW SD 55.6 fl High 35.1-43.9 [facility] Comment on above: Performed By: #### L 500.2500, L100.0100 ####[facility] [address] [place], [address] WBC (Bld) [#/Vol] 4.8 10*3/uL Normal 4.4-11.0 [facility] Comment on above: Performed By: #### L 500.2500, L100.0100 ####[facility] [address] [place], [address] Vancomycin, Trough Levelon VANCO, TROUGH 17.0 ug/mL High 5.0-15.0 [facility] Comment on above: Order Comment: Comme nts: Trough to be drawn 30 mins prior to scheduled [id number] Result Comment: VANC OMYCIN STANDARED DRUG THERAPY TROUGH LEVEL: 5.0 - 15.0 mg/LVANCOMYCIN HIGH INTENSITY THERAPY TROUGH LEVEL: 15.0 - 20.0 mg/LHigh Intensity therapy recommended for serious lifethreatening infections include:- Sdnbmevfqv-Ernycfvlbqfu-Tzsmozboi (Ventilator/Healtcare Associated)-SepsisPLEASE CONTACT PHARMACY SERVICES (#1366) FOR INTERPRETATIONOF RESULTS. Performed By: #### L 501.8820 ####[facility] [address] [place], [address] Basic Metabolic Profile (BMP )on 07-01-2024 BUN/CRE 21.7 RATIO High 07-16 [facility] Comment on above: Performed By: #### L 100.0100, L500.2500 ####[facility] [address] [place], [address] CA,Total 9.5 mg/dL Normal 8.5-10.1 [facility] Comment on above: Performed By: #### L 100.0100, L500.2500 ####[facility] [address] [place], [address] Chloride [Moles/Vol] 102 mmol/L Normal 98-107 [facility] Comment on above: Performed By: #### L 100.0100, L500.2500 ####[facility] [address] [place], [address] CO2 [Moles/Vol] 30.0 mmol/L Normal 21.0-32.0 [facility] Comment on above: Performed By: #### L 100.0100, L500.2500 ####[facility] [address] [place], [address] Creatinine [Mass/Vol] 1.43 mg/dL High 0.70-1.30 [facility] Comment on above: Result Comment: The validity of the calculated GFR GFRAA in patients over70 years has not been determined. Clinical correlation isessential. Performed By: #### L 100.0100, L500.2500 ####[facility] [address] [place], [address] ECRCL 51.30 ml/min Normal [facility] Comment on above: Performed By: #### L 100.0100, L500.2500 ####[facility] [address] [place], [address] EST GFR - AA 63 mL/min Normal >60 [facility] Comment on above: Result Comment: Afri can Bruneian GFR Calc Performed By: #### L 100.0100, L500.2500 ####[facility] [address] [place], [address] GAP 5 Normal 5-15 [facility] Comment on above: Performed By: #### L 100.0100, L500.2500 ####[facility] [address] [place], [address] GFR/1.73 sq M.predicted among non-blacks MDRD (S/P/Bld) [Vol rate/Area] 52 mL/min/{1.73_m2} Low >60 [facility] Comment on above: Result Comment: Non- GFR Calc Performed By: #### L 100.0100, L500.2500 ####[facility] [address] [place], [address] Glucose [Mass/Vol] 105 mg/dL Normal 74-106 [facility] Comment on above: Result Comment: Fast ing Glucose result from 100 to 125 mg/dLsuggests IMPAIRED HOMEOSTASIS per A.D.A. criteria. Performed By: #### L 100.0100, L500.2500 ####[facility] [address] [place], [address] Potassium [Moles/Vol] 4.1 mmol/L Normal 3.5-5.1 [facility] Comment on above: Performed By: #### L 100.0100, L500.2500 ####[facility] [address] [place], [address] Sodium [Moles/Vol] 138 mmol/L Normal 136-145 [facility] Comment on above: Performed By: #### L 100.0100, L500.2500 ####[facility] [address] [place], [address] Urea nitrogen [Mass/Vol] 31 mg/dL High 7-18 [facility] Comment on above: Performed By: #### L 100.0100, L500.2500 ####[facility] [address] [place], [address] CBC W/Diff, Automatedon 10-0 Absolute Lymph 0.58 X10 3/uL Low 0.83-4.51 [facility] Comment on above: Performed By: #### L 100.0100, L500.2500 ####[facility] [address] [place], [address] Absolute Neut 3.3 X10 3/uL Normal 2.0-7.7 [facility] Comment on above: Performed By: #### L 100.0100, L500.2500 ####[facility] [address] [place], [address] Basophils/100 WBC (Bld) 1.0 % Normal 0-1 [facility] Comment on above: Performed By: #### L 100.0100, L500.2500 ####[facility] [address] [place], [address] Eosinophils/100 WBC (Bld) 6.5 % High 0-5 [facility] Comment on above: Performed By: #### L 100.0100, L500.2500 ####[facility] [address] [place], [address] Erythrocyte distribution width (RBC) [Ratio] 16.6 % High 11.6-14.6 [facility] Comment on above: Performed By: #### L 100.0100, L500.2500 ####[facility] [address] [place], [address] Hematocrit (Bld) [Volume fraction] 31.2 % Low 40-54 [facility] Comment on above: Performed By: #### L 100.0100, L500.2500 ####[facility] [address] [place], [address] Hemoglobin (Bld) [Mass/Vol] 9.7 g/dL Low 13.0-16.5 [facility] Comment on above: Performed By: #### L 100.0100, L500.2500 ####[facility] [address] [place], [address] IG% 0.600 Normal 0.0-0.9 [facility] Comment on above: Result Comment: IG% - Immature Granulocytes (promyelocytes, myelocytes andmetamyelocytes) > 1% indicates that a LEFT SHIFT is Present. Performed By: #### L 100.0100, L500.2500 ####[facility] [address] [place], [address] Lymphocytes/100 WBC (Bld) 11.8 % Low 19-41 [facility] Comment on above: Performed By: #### L 100.0100, L500.2500 ####[facility] [address] [place], [address] MCH (RBC) [Entitic mass] 28.4 pg Normal 27.0-32.0 [facility] Comment on above: Performed By: #### L 100.0100, L500.2500 ####[facility] [address] [place], [address] MCHC (RBC) [Mass/Vol] 31.1 g/dL Low 32-36 [facility] Comment on above: Performed By: #### L 100.0100, L500.2500 ####[facility] [address] [place], [address] MCV (RBC) [Entitic vol] 91.5 fL Normal 80-94 [facility] Comment on above: Performed By: #### L 100.0100, L500.2500 ####[facility] [address] [place], [address] Monocytes/100 WBC (Bld) 12.4 % High 0-10 [facility] Comment on above: Performed By: #### L 100.0100, L500.2500 ####[facility] [address] [place], [address] Neutrophils/100 WBC (Bld) 67.7 % Normal 47-70 [facility] Comment on above: Performed By: #### L 100.0100, L500.2500 ####[facility] [address] [place], [address] Nucleated RBC (Bld) [#/Vol] 0 10*3/uL Normal 0-5 [facility] Comment on above: Performed By: #### L 100.0100, L500.2500 ####[facility] [address] [place], [address] Platelet mean volume (Bld) [Entitic vol] 10.4 fL Normal 6.2-12.0 [facility] Comment on above: Performed By: #### L 100.0100, L500.2500 ####[facility] [address] [place], [address] Platelets (Bld) [#/Vol] 262 10*3/uL Normal 150-450 [facility] Comment on above: Performed By: #### L 100.0100, L500.2500 ####[facility] [address] [place], [address] RBC (Bld) [#/Vol] 3.41 10*6/uL Low 4.6-6.2 [facility] Comment on above: Performed By: #### L 100.0100, L500.2500 ####[facility] [address] [place], [address] RDW SD 55.2 fl High 35.1-43.9 [facility] Comment on above: Performed By: #### L 100.0100, L500.2500 ####[facility] [address] [place], [address] WBC (Bld) [#/Vol] 4.9 10*3/uL Normal 4.4-11.0 [facility] Comment on above: Performed By: #### L 100.0100, L500.2500 ####[facility] [address] [place], [address] Culture, Anaerobic Any Sourc bobby 07-01-2024 CUAN UNK UNK Collected in OR - Thoracic Bone Culture No growth in 5 days. [facility] Comment on above: Performed By: #### M 600.2200, M600.2000, M100.2000, M100.3000, M100.4001 ####[facility] [address] [place], [address] CUAN UNK UNK Collected in OR - Cervical Thoracic tissue (Siska) No growth in 5 days. Normal [facility] Comment on above: Performed By: #### M 100.3000, M100.4001, M100.2000 ####[facility] [address] [place], [address] CUAN UNK UNK Collected in OR - 3:Deep Tissue, Cervical Thoracic No growth in 5 days. Normal [facility] Comment on above: Performed By: #### M 100.4001, M300.2000, M600.2200, M300.3000, M100.3000, M100.2000, M600.2000 ####[facility] [address] [place], [address] CUAN UNK UNK Collected in OR, 2,Cervical Thoracic tissue(Siska) No growth in 5 days. [facility] Comment on above: Performed By: #### M 100.3000, M100.2000, M100.4001 ####[facility] [address] [place], [address] Basic Metabolic Profile (BMP )on 06-30-2024 BUN/CRE 20.7 RATIO High - [facility] Comment on above: Performed By: #### L 500.2500, L100.0100 ####[facility] [address] [place], [address] CA,Total 9.5 mg/dL Normal 8.5-10.1 [facility] Comment on above: Performed By: #### L 500.2500, L100.0100 ####[facility] [address] [place], [address] Chloride [Moles/Vol] 102 mmol/L Normal 98-107 [facility] Comment on above: Performed By: #### L 500.2500, L100.0100 ####[facility] [address] [place], [address] CO2 [Moles/Vol] 30.0 mmol/L Normal 21.0-32.0 [facility] Comment on above: Performed By: #### L 500.2500, L100.0100 ####[facility] [address] [place], [address] Creatinine [Mass/Vol] 1.40 mg/dL High 0.70-1.30 [facility] Comment on above: Result Comment: The validity of the calculated GFR GFRAA in patients over70 years has not been determined. Clinical correlation isessential. Performed By: #### L 500.2500, L100.0100 ####[facility] [address] [place], [address] ECRCL 52.40 ml/min Normal [facility] Comment on above: Performed By: #### L 500.2500, L100.0100 ####[facility] [address] [place], [address] EST GFR - AA 65 mL/min Normal >60 [facility] Comment on above: Result Comment: Afri can Bruneian GFR Calc Performed By: #### L 500.2500, L100.0100 ####[facility] [address] [place], [address] GAP 6 Normal 5-15 [facility] Comment on above: Performed By: #### L 500.2500, L100.0100 ####[facility] [address] [place], [address] GFR/1.73 sq M.predicted among non-blacks MDRD (S/P/Bld) [Vol rate/Area] 54 mL/min/{1.73_m2} Low >60 [facility] Comment on above: Result Comment: Non- GFR Calc Performed By: #### L 500.2500, L100.0100 ####[facility] [address] [place], [address] Glucose [Mass/Vol] 101 mg/dL Normal 74-106 [facility] Comment on above: Result Comment: Fast ing Glucose result from 100 to 125 mg/dLsuggests IMPAIRED HOMEOSTASIS per A.D.A. criteria. Performed By: #### L 500.2500, L100.0100 ####[facility] [address] [place], [address] Potassium [Moles/Vol] 4.1 mmol/L Normal 3.5-5.1 [facility] Comment on above: Performed By: #### L 500.2500, L100.0100 ####[facility] [address] [place], [address] Sodium [Moles/Vol] 137 mmol/L Normal 136-145 [facility] Comment on above: Performed By: #### L 500.2500, L100.0100 ####[facility] [address] [place], [address] Urea nitrogen [Mass/Vol] 29 mg/dL High 7-18 [facility] Comment on above: Performed By: #### L 500.2500, L100.0100 ####[facility] [address] [place], [address] CBC W/Diff, Automatedon 10-0 -2023 Absolute Lymph 0.54 X10 3/uL Low 0.83-4.51 [facility] Comment on above: Performed By: #### L 500.2500, L100.0100 ####[facility] [address] [place], [address] Absolute Neut 3.9 X10 3/uL Normal 2.0-7.7 [facility] Comment on above: Performed By: #### L 500.2500, L100.0100 ####[facility] [address] [place], [address] Basophils/100 WBC (Bld) 1.1 % High 0-1 [facility] Comment on above: Performed By: #### L 500.2500, L100.0100 ####[facility] [address] [place], [address] Eosinophils/100 WBC (Bld) 6.0 % High 0-5 [facility] Comment on above: Performed By: #### L 500.2500, L100.0100 ####[facility] [address] [place], [address] Erythrocyte distribution width (RBC) [Ratio] 16.2 % High 11.6-14.6 [facility] Comment on above: Performed By: #### L 500.2500, L100.0100 ####[facility] [address] [place], [address] Hematocrit (Bld) [Volume fraction] 31.5 % Low 40-54 [facility] Comment on above: Performed By: #### L 500.2500, L100.0100 ####[facility] [address] [place], [address] Hemoglobin (Bld) [Mass/Vol] 9.7 g/dL Low 13.0-16.5 [facility] Comment on above: Performed By: #### L 500.2500, L100.0100 ####[facility] [address] [place], [address] IG% 0.500 Normal 0.0-0.9 [facility] Comment on above: Result Comment: IG% - Immature Granulocytes (promyelocytes, myelocytes andmetamyelocytes) > 1% indicates that a LEFT SHIFT is Present. Performed By: #### L 500.2500, L100.0100 ####[facility] [address] [place], [address] Lymphocytes/100 WBC (Bld) 9.9 % Low 19-41 [facility] Comment on above: Performed By: #### L 500.2500, L100.0100 ####[facility] [address] [place], [address] MCH (RBC) [Entitic mass] 28.5 pg Normal 27.0-32.0 [facility] Comment on above: Performed By: #### L 500.2500, L100.0100 ####[facility] [address] [place], [address] MCHC (RBC) [Mass/Vol] 30.8 g/dL Low 32-36 [facility] Comment on above: Performed By: #### L 500.2500, L100.0100 ####[facility] [address] [place], [address] MCV (RBC) [Entitic vol] 92.6 fL Normal 80-94 [facility] Comment on above: Performed By: #### L 500.2500, L100.0100 ####[facility] [address] [place], [address] Monocytes/100 WBC (Bld) 11.9 % High 0-10 [facility] Comment on above: Performed By: #### L 500.2500, L100.0100 ####[facility] [address] [place], [address] Neutrophils/100 WBC (Bld) 70.6 % High 47-70 [facility] Comment on above: Performed By: #### L 500.2500, L100.0100 ####[facility] [address] [place], [address] Nucleated RBC (Bld) [#/Vol] 0 10*3/uL Normal 0-5 [facility] Comment on above: Performed By: #### L 500.2500, L100.0100 ####[facility] [address] [place], [address] Platelet mean volume (Bld) [Entitic vol] 10.0 fL Normal 6.2-12.0 [facility] Comment on above: Performed By: #### L 500.2500, L100.0100 ####[facility] [address] [place], [address] Platelets (Bld) [#/Vol] 256 10*3/uL Normal 150-450 [facility] Comment on above: Performed By: #### L 500.2500, L100.0100 ####[facility] [address] [place], [address] RBC (Bld) [#/Vol] 3.40 10*6/uL Low 4.6-6.2 [facility] Comment on above: Performed By: #### L 500.2500, L100.0100 ####[facility] [address] [place], [address] RDW SD 55.5 fl High 35.1-43.9 [facility] Comment on above: Performed By: #### L 500.2500, L100.0100 ####[facility] [address] [place], [address] WBC (Bld) [#/Vol] 5.5 10*3/uL Normal 4.4-11.0 [facility] Comment on above: Performed By: #### L 500.2500, L100.0100 ####[facility] [address] [place], [address] Gram Stainon 06-30-2024 GS COLLECTED IN OR-CERVICAL/THORACIC WOUND #1 Gram Stain Rare White Blood Cells 4+ Red Blood Cells No organisms seen No Epithelial cells Normal [facility] Comment on above: Performed By: #### M 100.3000, .1999, 4001 ####[facility] [address] [place], [address] Vancomycin, Random Levelon 1 VANCO, RANDOM 15.3 ug/mL High 0.0-15.0 [facility] Comment on above: Result Comment: VANC OMYCIN STANDARD DRUG THERAPY: CRITICAL VALUE IS > 15.0 mg/LVANCOMYCIN HIGH INTENSITY THERAPY: CRITICAL VALUE IS > 20.0 mg/LPLEASE CONTACT PHARMACY SERVICES (#8391) FOR INTERPRETATIONOF RESULTS. THIS RESULT DOES NOT REPRESENT A PEAK OR TROUGHLEVEL FOR THIS DRUG. Performed By: #### L 501.8850 ####[facility] [address] [place], [address] VANCO, RANDOM 20.1 ug/mL High 0.0-15.0 [facility] Comment on above: Result Comment: VANC OMYCIN STANDARD DRUG THERAPY: CRITICAL VALUE IS > 15.0 mg/LVANCOMYCIN HIGH INTENSITY THERAPY: CRITICAL VALUE IS > 20.0 mg/LPLEASE CONTACT PHARMACY SERVICES (#8391) FOR INTERPRETATIONOF RESULTS. THIS RESULT DOES NOT REPRESENT A PEAK OR TROUGHLEVEL FOR THIS DRUG. Performed By: #### L 501.8850 ####[facility] [address] [place], [address] Wound Cultureon 06-30-2024 WC COLLECTED IN OR-CERVICAL/THORACIC WOUND #1 No growth aerobically. Normal [facility] Comment on above: Performed By: #### M 100.3000, .1999, M1.4001 ####[facility] [address] [place], [address] WC Normal [facility] Comment on above: Performed By: #### M 100.3000, .1999, M1.4001 ####[facility] [address] [place], [address] WC Normal [facility] Comment on above: Performed By: #### M 100.3000, M100.4001, M100.2000 ####[facility] [address] [place], [address] Basic Metabolic Profile (BMP )on 06-29-2024 BUN/CRE 21.2 RATIO High 10-20 [facility] Comment on above: Performed By: #### L 501.5200, L501.2300, L100.0100, L500.2500 ####[facility] [address] [place], [address] CA,Total 9.3 mg/dL Normal 8.5-10.1 [facility] Comment on above: Performed By: #### L 501.5200, L501.2300, L100.0100, L500.2500 ####[facility] [address] [place], [address] Chloride [Moles/Vol] 106 mmol/L Normal 98-107 [facility] Comment on above: Performed By: #### L 501.5200, L501.2300, L100.0100, L500.2500 ####[facility] [address] [place], [address] CO2 [Moles/Vol] 29.0 mmol/L Normal 21.0-32.0 [facility] Comment on above: Performed By: #### L 501.5200, L501.2300, L100.0100, L500.2500 ####[facility] [address] [place], [address] Creatinine [Mass/Vol] 1.32 mg/dL High 0.70-1.30 [facility] Comment on above: Result Comment: The validity of the calculated GFR GFRAA in patients over70 years has not been determined. Clinical correlation isessential. Performed By: #### L 501.5200, L501.2300, L100.0100, L500.2500 ####[facility] [address] [place], [address] ECRCL 55.67 ml/min Normal [facility] Comment on above: Performed By: #### L 501.5200, L501.2300, L100.0100, L500.2500 ####[facility] [address] [place], [address] EST GFR - AA 70 mL/min Normal >60 [facility] Comment on above: Result Comment: Afri can Bruneian GFR Calc Performed By: #### L 501.5200, L501.2300, L100.0100, L500.2500 ####[facility] [address] [place], [address] GAP 5 Normal 5-15 [facility] Comment on above: Performed By: #### L 501.5200, L501.2300, L100.0100, L500.2500 ####[facility] [address] [place], [address] GFR/1.73 sq M.predicted among non-blacks MDRD (S/P/Bld) [Vol rate/Area] 58 mL/min/{1.73_m2} Low >60 [facility] Comment on above: Result Comment: Non- GFR Calc Performed By: #### L 501.5200, L501.2300, L100.0100, L500.2500 ####[facility] [address] [place], [address] Glucose [Mass/Vol] 100 mg/dL Normal 74-106 [facility] Comment on above: Result Comment: Fast ing Glucose result from 100 to 125 mg/dLsuggests IMPAIRED HOMEOSTASIS per A.D.A. criteria. Performed By: #### L 501.5200, L501.2300, L100.0100, L500.2500 ####[facility] [address] [place], [address] Potassium [Moles/Vol] 4.0 mmol/L Normal 3.5-5.1 [facility] Comment on above: Performed By: #### L 501.5200, L501.2300, L100.0100, L500.2500 ####[facility] [address] [place], [address] Sodium [Moles/Vol] 140 mmol/L Normal 136-145 [facility] Comment on above: Performed By: #### L 501.5200, L501.2300, L100.0100, L500.2500 ####[facility] [address] [place], [address] Urea nitrogen [Mass/Vol] 28 mg/dL High 7-18 [facility] Comment on above: Performed By: #### L 501.5200, L501.2300, L100.0100, L500.2500 ####[facility] [address] [place], [address] CBC W/Diff, Automatedon 10-0 3-4 Absolute Lymph 0.61 X10 3/uL Low 0.83-4.51 [facility] Comment on above: Performed By: #### L 501.5200, L501.2300, L100.0100, L500.2500 ####[facility] [address] [place], [address] Absolute Neut 3.6 X10 3/uL Normal 2.0-7.7 [facility] Comment on above: Performed By: #### L 501.5200, L501.2300, L100.0100, L500.2500 ####[facility] [address] [place], [address] Basophils/100 WBC (Bld) 0.8 % Normal 0-1 [facility] Comment on above: Performed By: #### L 501.5200, L501.2300, L100.0100, L500.2500 ####[facility] [address] [place], [address] Eosinophils/100 WBC (Bld) 6.2 % High 0-5 [facility] Comment on above: Performed By: #### L 501.5200, L501.2300, L100.0100, L500.2500 ####[facility] [address] [place], [address] Erythrocyte distribution width (RBC) [Ratio] 16.4 % High 11.6-14.6 [facility] Comment on above: Performed By: #### L 501.5200, L501.2300, L100.0100, L500.2500 ####[facility] [address] [place], [address] Hematocrit (Bld) [Volume fraction] 33.6 % Low 40-54 [facility] Comment on above: Performed By: #### L 501.5200, L501.2300, L100.0100, L500.2500 ####[facility] [address] [place], [address] Hemoglobin (Bld) [Mass/Vol] 10.5 g/dL Low 13.0-16.5 [facility] Comment on above: Performed By: #### L 501.5200, L501.2300, L100.0100, L500.2500 ####[facility] [address] [place], [address] IG% 0.600 Normal 0.0-0.9 [facility] Comment on above: Result Comment: IG% - Immature Granulocytes (promyelocytes, myelocytes andmetamyelocytes) > 1% indicates that a LEFT SHIFT is Present. Performed By: #### L 501.5200, L501.2300, L100.0100, L500.2500 ####[facility] [address] [place], [address] Lymphocytes/100 WBC (Bld) 12.2 % Low 19-41 [facility] Comment on above: Performed By: #### L 501.5200, L501.2300, L100.0100, L500.2500 ####[facility] [address] [place], [address] MCH (RBC) [Entitic mass] 28.5 pg Normal 27.0-32.0 [facility] Comment on above: Performed By: #### L 501.5200, L501.2300, L100.0100, L500.2500 ####[facility] [address] [place], [address] MCHC (RBC) [Mass/Vol] 31.3 g/dL Low 32-36 [facility] Comment on above: Performed By: #### L 501.5200, L501.2300, L100.0100, L500.2500 ####[facility] [address] [place], [address] MCV (RBC) [Entitic vol] 91.1 fL Normal 80-94 [facility] Comment on above: Performed By: #### L 501.5200, L501.2300, L100.0100, L500.2500 ####[facility] [address] [place], [address] Monocytes/100 WBC (Bld) 9.4 % Normal 0-10 [facility] Comment on above: Performed By: #### L 501.5200, L501.2300, L100.0100, L500.2500 ####[facility] [address] [place], [address] Neutrophils/100 WBC (Bld) 70.8 % High 47-70 [facility] Comment on above: Performed By: #### L 501.5200, L501.2300, L100.0100, L500.2500 ####[facility] [address] [place], [address] Nucleated RBC (Bld) [#/Vol] 0 10*3/uL Normal 0-5 [facility] Comment on above: Performed By: #### L 501.5200, L501.2300, L100.0100, L500.2500 ####[facility] [address] [place], [address] Platelet mean volume (Bld) [Entitic vol] 10.1 fL Normal 6.2-12.0 [facility] Comment on above: Performed By: #### L 501.5200, L501.2300, L100.0100, L500.2500 ####[facility] [address] [place], [address] Platelets (Bld) [#/Vol] 268 10*3/uL Normal 150-450 [facility] Comment on above: Performed By: #### L 501.5200, L501.2300, L100.0100, L500.2500 ####[facility] [address] [place], [address] RBC (Bld) [#/Vol] 3.69 10*6/uL Low 4.6-6.2 [facility] Comment on above: Performed By: #### L 501.5200, L501.2300, L100.0100, L500.2500 ####[facility] [address] [place], [address] RDW SD 54.4 fl High 35.1-43.9 [facility] Comment on above: Performed By: #### L 501.5200, L501.2300, L100.0100, L500.2500 ####[facility] [address] [place], [address] WBC (Bld) [#/Vol] 5.0 10*3/uL Normal 4.4-11.0 [facility] Comment on above: Performed By: #### L 501.5200, L501.2300, L100.0100, L500.2500 ####[facility] [address] [place], [address] Culture, Anaerobic Any Sourc bobby 06-29-2024 CUAN UNK UNK Collected in OR - Cervical Thoracic tissue (Siska) No anaerobic bacteria isolated. Normal [facility] Comment on above: Performed By: #### M 100.3000, M600.2200, M100.2000, M100.4001, M600.2000 ####[facility] [address] [place], [address] H AND P Exam - Surgicalon H&P Exam - Surgical Normal [facility] MR/POSTOP.ANEon 06-29-2024 MR/POSTOP.ANE Normal [facility] Magnesiumon 06-29-2024 Magnesium [Mass/Vol] 1.6 mg/dL Normal 1.6-2.6 [facility] Comment on above: Performed By: #### L 501.5200, L501.2300, L100.0100, L500.2500 ####[facility] [address] [place], [address] Operative Reporton Operative Report Normal [facility] Operative Report Normal [facility] Partial Thromboplast Timeon 06-29-2024 aPTT Coag (Bld) [Time] 26.6 s Normal 24.1-36.2 [facility] Comment on above: Order Comment: Comme nts: preop please draw with other scheduled am labsComments: preop please draw with other am labs this morning Performed By: #### L 300.4310, L300.3900 ####[facility] [address] [place], [address] Phosphoruson 06-29-2024 Phosphate [Mass/Vol] 3.6 mg/dL Normal 2.5-4.9 [facility] Comment on above: Performed By: #### L 501.5200, L501.2300, L100.0100, L500.2500 ####[facility] [address] [place], [address] Prothrombin Time w/INRon INR Coag (PPP) [Relative time] 1.0 {INR} Normal [facility] Comment on above: Order Comment: Comme nts: preop please draw with other scheduled am labsComments: preop please draw with other am labs this morning Performed By: #### L 300.4310, L300.3900 ####[facility] [address] [place], [address] PT Coag (PPP) [Time] 13.2 s Normal 11.7-14.9 [facility] Comment on above: Order Comment: Comme nts: preop please draw with other scheduled am labsComments: preop please draw with other am labs this morning Performed By: #### L 300.4310, L300.3900 ####[facility] [address] [place], [address] Vancomycin, Trough Levelon 1 VANCO, TROUGH 23.7 ug/mL High 5.0-15.0 [facility] Comment on above: Order Comment: Comme nts: Trough to be drawn 30 mins prior to scheduled [id number] Result Comment: VANC OMYCIN STANDARED DRUG THERAPY TROUGH LEVEL: 5.0 - 15.0 mg/LVANCOMYCIN HIGH INTENSITY THERAPY TROUGH LEVEL: 15.0 - 20.0 mg/LHigh Intensity therapy recommended for serious lifethreatening infections include:- Ahjvrfghes-Vnmcdtqwoprb-Filgxprid (Ventilator/Healtcare Associated)-SepsisPLEASE CONTACT PHARMACY SERVICES (#2881) FOR INTERPRETATIONOF RESULTS. Performed By: #### L 501.4920 ####[facility] [address] [place], [address] Wound Cultureon 06-29-2024 WC UNK UNK Collected in OR - 3:Deep Tissue, Cervical Thoracic No growth aerobically. Normal [facility] Comment on above: Performed By: #### M 100.4001, M300.2000, M600.2200, M300.3000, M100.3000, M100.2000, M600.2000 ####[facility] [address] [place], [address] UNK UNK Collected in OR - Thoracic Bone Culture No growth aerobically. [facility] Comment on above: Performed By: #### M 600.2200, M600.2000, M100.2000, M100.3000, M100.4001 ####[facility] [address] [place], [address] 36on 06-28-2024 36 Attempted to contact patient. Unsuccessful. Phone had a continuous ring with no voicemail. Regarding scheduling patient an appointment with Dr. Munoz. [facility] Wound Cultureon 06-28-2024 [facility] Comment on above: Performed By: #### M 100.3000, M600.2200, M100.2000, M100.4001, M600.1999 ####[facility] [address] [place], [place], [address] Vancomycin, Trough Levelon 1 VANCO, TROUGH 20.5 ug/mL High 5.0-15.0 [facility] Comment on above: Order Comment: Comme nts: Trough to be drawn 30 mins prior to scheduled dose Result Comment: VANC OMYCIN STANDARED DRUG THERAPY TROUGH LEVEL: 5.0 - 15.0 mg/LVANCOMYCIN HIGH INTENSITY THERAPY TROUGH LEVEL: 15.0 - 20.0 mg/LHigh Intensity therapy recommended for serious lifethreatening infections include:- Nrknkwxssd-Pvijgllkelzp-Xetpwefqp (Ventilator/Healtcare Associated)-SepsisPLEASE CONTACT PHARMACY SERVICES (#9746) FOR INTERPRETATIONOF RESULTS. Performed By: #### L 501.8820 ####[facility] [address] [place], [place], [address] Basic Metabolic Profile (BMP )on 06-26-2024 BUN/CRE 11.5 RATIO Normal - [facility] Comment on above: Performed By: #### B 03772-5, L300.4310, L500.2500, L300.3900, BTS, L100.0100 ####[facility] [address] [place], [address] CA,Total 9.0 mg/dL Normal 8.5-10.1 [facility] Comment on above: Performed By: #### B 27804-1, L300.4310, L500.2500, L300.3900, BTS, L100.0100 ####[facility] [address] [place], [address] Chloride [Moles/Vol] 104 mmol/L Normal 98-107 [facility] Comment on above: Performed By: #### B 27428-9, L300.4310, L500.2500, L300.3900, BTS, L100.0100 ####[facility] [address] [place], [address] CO2 [Moles/Vol] 29.0 mmol/L Normal 21.0-32.0 [facility] Comment on above: Performed By: #### B 21422-4, L300.4310, L500.2500, L300.3900, BTS, L100.0100 ####[facility] [address] [place], [address] Creatinine [Mass/Vol] 1.48 mg/dL High 0.70-1.30 [facility] Comment on above: Result Comment: The validity of the calculated GFR GFRAA in patients over70 years has not been determined. Clinical correlation isessential. Performed By: #### B 96775-1, L300.4310, L500.2500, L300.3900, BTS, L100.0100 ####[facility] [address] [place], [address] ECRCL 48.68 ml/min Normal [facility] Comment on above: Performed By: #### B 73315-2, L300.4310, L500.2500, L300.3900, BTS, L100.0100 ####[facility] [address] [place], [address] EST GFR - AA 61 mL/min Normal >60 [facility] Comment on above: Result Comment: Afri can Bruneian GFR Calc Performed By: #### B 08208-5, L300.4310, L500.2500, L300.3900, BTS, L100.0100 ####[facility] [address] [place], [address] GAP 6 Normal 5-15 [facility] Comment on above: Performed By: #### B 16977-8, L300.4310, L500.2500, L300.3900, BTS, L100.0100 ####[facility] [address] [place], [address] GFR/1.73 sq M.predicted among non-blacks MDRD (S/P/Bld) [Vol rate/Area] 50 mL/min/{1.73_m2} Low >60 [facility] Comment on above: Result Comment: Non- GFR Calc Performed By: #### B 64016-1, L300.4310, L500.2500, L300.3900, BTS, L100.0100 ####[facility] [address] [place], [address] Glucose [Mass/Vol] 115 mg/dL High 74-106 [facility] Comment on above: Result Comment: Fast ing Glucose result from 100 to 125 mg/dLsuggests IMPAIRED HOMEOSTASIS per A.D.A. criteria. Performed By: #### B 22070-0, L300.4310, L500.2500, L300.3900, BTS, L100.0100 ####[facility] [address] [place], [address] Potassium [Moles/Vol] 3.9 mmol/L Normal 3.5-5.1 [facility] Comment on above: Performed By: #### B 68987-9, L300.4310, L500.2500, L300.3900, BTS, L100.0100 ####[facility] [address] [place], [address] Sodium [Moles/Vol] 139 mmol/L Normal 136-145 [facility] Comment on above: Performed By: #### B 43710-0, L300.4310, L500.2500, L300.3900, BTS, L100.0100 ####[facility] [address] [place], [address] Urea nitrogen [Mass/Vol] 17 mg/dL Normal 7-18 [facility] Comment on above: Performed By: #### Mervin 23887-7, L300.4310, L500.2500, L300.3900, BTS, L100.0100 ####[facility] [address] [place], [address] CBC W/Diff, Automatedon 09-3 0-4 Absolute Lymph 0.51 X10 3/uL Low 0.83-4.51 [facility] Comment on above: Performed By: #### B 38493-8, L300.4310, L500.2500, L300.3900, BTS, L100.0100 ####[facility] [address] [place], [address] Absolute Neut 3.8 X10 3/uL Normal 2.0-7.7 [facility] Comment on above: Performed By: #### B 86766-1, L300.4310, L500.2500, L300.3900, BTS, L100.0100 ####[facility] [address] [place], [address] Basophils/100 WBC (Bld) 0.4 % Normal 0-1 [facility] Comment on above: Performed By: #### B 66100-0, L300.4310, L500.2500, L300.3900, BTS, L100.0100 ####[facility] [address] [place], [address] Eosinophils/100 WBC (Bld) 4.8 % Normal 0-5 [facility] Comment on above: Performed By: #### B 42555-5, L300.4310, L500.2500, L300.3900, BTS, L100.0100 ####[facility] [address] [place], [address] Erythrocyte distribution width (RBC) [Ratio] 15.9 % High 11.6-14.6 [facility] Comment on above: Performed By: #### B 08278-9, L300.4310, L500.2500, L300.3900, BTS, L100.0100 ####[facility] [address] [place], [address] Hematocrit (Bld) [Volume fraction] 37.0 % Low 40-54 [facility] Comment on above: Performed By: #### B 53346-9, L300.4310, L500.2500, L300.3900, BTS, L100.0100 ####[facility] [address] [place], [address] Hemoglobin (Bld) [Mass/Vol] 11.6 g/dL Low 13.0-16.5 [facility] Comment on above: Performed By: #### B 18812-4, L300.4310, L500.2500, L300.3900, BTS, L100.0100 ####[facility] [address] [place], [address] IG% 0.400 Normal 0.0-0.9 [facility] Comment on above: Result Comment: IG% - Immature Granulocytes (promyelocytes, myelocytes andmetamyelocytes) > 1% indicates that a LEFT SHIFT is Present. Performed By: #### B 62461-7, L300.4310, L500.2500, L300.3900, BTS, L100.0100 ####[facility] [address] [place], [address] Lymphocytes/100 WBC (Bld) 10.2 % Low 19-41 [facility] Comment on above: Performed By: #### B 29146-2, L300.4310, L500.2500, L300.3900, BTS, L100.0100 ####[facility] [address] [place], [address] MCH (RBC) [Entitic mass] 28.5 pg Normal 27.0-32.0 [facility] Comment on above: Performed By: #### Mervin 61842-6, L300.4310, L500.2500, L300.3900, BTS, L100.0100 ####[facility] [address] [place], [address] MCHC (RBC) [Mass/Vol] 31.4 g/dL Low 32-36 [facility] Comment on above: Performed By: #### Mervin 64142-0, L300.4310, L500.2500, L300.3900, BTS, L100.0100 ####[facility] [address] [place], [address] MCV (RBC) [Entitic vol] 90.9 fL Normal 80-94 [facility] Comment on above: Performed By: #### B 60694-1, L300.4310, L500.2500, L300.3900, BTS, L100.0100 ####[facility] [address] [place], [address] Monocytes/100 WBC (Bld) 8.6 % Normal 0-10 [facility] Comment on above: Performed By: #### Mervin 78525-5, L300.4310, L500.2500, L300.3900, BTS, L100.0100 ####[facility] [address] [place], [address] Neutrophils/100 WBC (Bld) 75.6 % High 47-70 [facility] Comment on above: Performed By: #### Mervin 00627-0, L300.4310, L500.2500, L300.3900, BTS, L100.0100 ####[facility] [address] [place], [address] Nucleated RBC (Bld) [#/Vol] 0 10*3/uL Normal 0-5 [facility] Comment on above: Performed By: #### Mervin 21317-6, L300.4310, L500.2500, L300.3900, BTS, L100.0100 ####[facility] [address] [place], [address] Platelet mean volume (Bld) [Entitic vol] 10.3 fL Normal 6.2-12.0 [facility] Comment on above: Performed By: #### Mervin 10744-6, L300.4310, L500.2500, L300.3900, BTS, L100.0100 ####[facility] [address] [place], [address] Platelets (Bld) [#/Vol] 223 10*3/uL Normal 150-450 [facility] Comment on above: Performed By: #### Mervin 79905-1, L300.4310, L500.2500, L300.3900, BTS, L100.0100 ####[facility] [address] [place], [address] RBC (Bld) [#/Vol] 4.07 10*6/uL Low 4.6-6.2 [facility] Comment on above: Performed By: ###Rae Jeffries 14813-0, L300.4310, L500.2500, L300.3900, BTS, L100.0100 ####[facility] [address] [place], [address] RDW SD 53.8 fl High 35.1-43.9 [facility] Comment on above: Performed By: #### B 06164-7, L300.4310, L500.2500, L300.3900, BTS, L100.0100 ####[facility] [address] [place], [address] WBC (Bld) [#/Vol] 5.0 10*3/uL Normal 4.4-11.0 [facility] Comment on above: Performed By: #### B 34734-1, L300.4310, L500.2500, L300.3900, BTS, L100.0100 ####[facility] [address] [place], [address] Gram Stainon 06-26-2024 GS UNK UNK Collected in OR - Thoracic Bone Culture Gram Stain 2+ Red Blood Cells No organisms seen Normal [facility] Comment on above: Performed By: #### M 600.2200, M600.2000, M100.2000, M100.3000, M100.4001 ####[facility] [address] [place], [address] GS UNK UNK Collected in OR - 3:Deep Tissue, Cervical Thoracic Gram Stain 2+ Red Blood Cells No organisms seen Normal [facility] Comment on above: Performed By: #### M 100.4001, M300.2000, M600.2200, M300.3000, M100.3000, M100.2000, M600.2000 ####[facility] [address] [place], [address] GS UNK UNK Collected in OR, 2,Cervical Thoracic tissue(Siska) Gram Stain Rare White Blood Cells 2+ Red Blood Cells No organisms seen Normal [facility] Comment on above: Performed By: #### M 100.3000, M100.2000, M100.4001 ####[facility] [address] [place], [address] GS UNK UNK Collected in OR - Cervical Thoracic tissue ([facility]) Gram Stain 3+ Red Blood Cells No organisms seen Normal [facility] Comment on above: Performed By: #### M 100.3000, M100.4001, M100.1999 ####[facility] [address] [place], [address] GS UNK UNK Collected in OR - Cervical Thoracic tissue ([facility]) Gram Stain 2+ Red Blood Cells 2+ White Blood Cells No organisms seen Normal [facility] Comment on above: Performed By: #### M 100.3000, M600.2200, M100.1999, M100.4001, M600 ####[facility] [address] [place], [address] H AND P Exam - Surgicalon H&P Exam - Surgical Normal [facility] MR/POSTOP.ANEon 06-26-2024 MR/POSTOP.ANE Normal [facility] MR/ZGEOZMMZ6oy 06-26-2024 MR/POSTOPAN2 Normal [facility] Operative Reporton Operative Report Normal [facility] Operative Report Normal [facility] Partial Thromboplast Timeon 06-26-2024 aPTT Coag (Bld) [Time] 27.8 s Normal 24.1-36.2 [facility] Comment on above: Performed By: #### B 82736-4, L300.4310, L500.2500, L300.3900, BTS, L100.0100 ####[facility] [address] [place], [address] Prothrombin Time w/INRon INR Coag (PPP) [Relative time] 1.0 {INR} Normal [facility] Comment on above: Performed By: #### B 70798-7, L300.4310, L500.2500, L300.3900, BTS, L100.0100 ####[facility] [address] [place], [address] PT Coag (PPP) [Time] 13.0 s Normal 11.7-14.9 [facility] Comment on above: Performed By: #### B 27998-0, L300.4310, L500.2500, L300.3900, BTS, L100.0100 ####[facility] [address] [place], [address] Spine 1 View Any Levelon Spine 1 View Any Level Normal [facility] Surgery Specimen Level Wild 06-26-2024 Surgery Specimen Level IV Normal [facility] Comment on above: Performed By: #### P SUIV ####[facility] [address] [place], [address] Type AND Screenon 06-26-2024 Ab SCREEN GEL TNP Normal [facility] Comment on above: Order Comment: S Result Comment: CRIT ICAL VALUE CALLED TO [id number] Robby Velasquez.RESULTS READ BACK BY SAME. AMENDED REPORT 06/26/24 0616: previously reported as:POSITIVE AMENDED REPORT 06/26/24 0832: previously reported as:POSITIVE Performed By: #### B 95004-6, L300.4310, L500.2500, L300.3900, BTS, L100.0100 ####[facility] [address] [place], [address] Vancomycin, Trough Levelon 0 06-26-2024 VANCO, TROUGH 13.6 ug/mL Normal 5.0-15.0 [facility] Comment on above: Order Comment: SURGE RYComments: DRAW 30 MIN PRIOR TO [id number] Result Comment: VANC OMYCIN STANDARED DRUG THERAPY TROUGH LEVEL: 5.0 - 15.0 mg/LVANCOMYCIN HIGH INTENSITY THERAPY TROUGH LEVEL: 15.0 - 20.0 mg/LHigh Intensity therapy recommended for serious lifethreatening infections include:- Tzueimgwbq-Tvccjeqdzzso-Azaflfegh (Ventilator/Healtcare Associated)-SepsisPLEASE CONTACT PHARMACY SERVICES (#4597) FOR INTERPRETATIONOF RESULTS. Performed By: #### L 501.8820 ####[facility] [address] [place], [address] Basic Metabolic Profile (BMP )on 06-24-2024 BUN/CRE 13.1 RATIO Normal 10-20 [facility] Comment on above: Performed By: #### L 500.2500, L100.0100 ####[facility] [address] [place], [address] CA,Total 9.0 mg/dL Normal 8.5-10.1 [facility] Comment on above: Performed By: #### L 500.2500, L100.0100 ####[facility] [address] [place], [address] Chloride [Moles/Vol] 106 mmol/L Normal 98-107 [facility] Comment on above: Performed By: #### L 500.2500, L100.0100 ####[facility] [address] [place], [address] CO2 [Moles/Vol] 26.0 mmol/L Normal 21.0-32.0 [facility] Comment on above: Performed By: #### L 500.2500, L100.0100 ####[facility] [address] [place], [address] Creatinine [Mass/Vol] 1.76 mg/dL High 0.70-1.30 [facility] Comment on above: Result Comment: The validity of the calculated GFR GFRAA in patients over70 years has not been determined. Clinical correlation isessential. Performed By: #### L 500.2500, L100.0100 ####[facility] [address] [place], [address] ECRCL 41.05 ml/min Normal [facility] Comment on above: Performed By: #### L 500.2500, L100.0100 ####[facility] [address] [place], [address] EST GFR - AA 50 mL/min Low >60 [facility] Comment on above: Result Comment: Afri can [place]une[place] GFR Calc Performed By: #### L 500.2500, L100.0100 ####[facility] [address] [place], [address] GAP 7 Normal 5-15 [facility] Comment on above: Performed By: #### L 500.2500, L100.0100 ####[facility] [address] [place], [address] GFR/1.73 sq M.predicted among non-blacks MDRD (S/P/Bld) [Vol rate/Area] 41 mL/min/{1.73_m2} Low >60 [facility] Comment on above: Result Comment: Non- GFR Calc Performed By: #### L 500.2500, L100.0100 ####[facility] [address] [place], [address] Glucose [Mass/Vol] 89 mg/dL Normal 74-106 [facility] Comment on above: Performed By: #### L 500.2500, L100.0100 ####[facility] [address] [place], [address] Potassium [Moles/Vol] 3.9 mmol/L Normal 3.5-5.1 [facility] Comment on above: Performed By: #### L 500.2500, L100.0100 ####[facility] [address] [place], [address] Sodium [Moles/Vol] 139 mmol/L Normal 136-145 [facility] Comment on above: Performed By: #### L 500.2500, L100.0100 ####[facility] [address] [place], [address] Urea nitrogen [Mass/Vol] 23 mg/dL High 7-18 [facility] Comment on above: Performed By: #### L 500.2500, L100.0100 ####[facility] [address] [place], [address] CBC W/Diff, Automatedon 05-29 Absolute Lymph 0.44 X10 3/uL Low 0.83-4.51 [facility] Comment on above: Performed By: #### L 500.2500, L100.0100 ####[facility] [address] [place], [address] Absolute Neut 2.8 X10 3/uL Normal 2.0-7.7 [facility] Comment on above: Performed By: #### L 500.2500, L100.0100 ####[facility] [address] [place], [address] Basophils/100 WBC (Bld) 0.5 % Normal 0-1 [facility] Comment on above: Performed By: #### L 500.2500, L100.0100 ####[facility] [address] [place], [address] Eosinophils/100 WBC (Bld) 5.0 % Normal 0-5 [facility] Comment on above: Performed By: #### L 500.2500, L100.0100 ####[facility] [address] [place], [address] Erythrocyte distribution width (RBC) [Ratio] 16.2 % High 11.6-14.6 [facility] Comment on above: Performed By: #### L 500.2500, L100.0100 ####[facility] [address] [place], [address] Hematocrit (Bld) [Volume fraction] 35.0 % Low 40-54 [facility] Comment on above: Performed By: #### L 500.2500, L100.0100 ####[facility] [address] [place], [address] Hemoglobin (Bld) [Mass/Vol] 10.9 g/dL Low 13.0-16.5 [facility] Comment on above: Performed By: #### L 500.2500, L100.0100 ####[facility] [address] [place], [address] IG% 0.500 Normal 0.0-0.9 [facility] Comment on above: Result Comment: IG% - Immature Granulocytes (promyelocytes, myelocytes andmetamyelocytes) > 1% indicates that a LEFT SHIFT is Present. Performed By: #### L 500.2500, L100.0100 ####[facility] [address] [place], [address] Lymphocytes/100 WBC (Bld) 11.5 % Low 19-41 [facility] Comment on above: Performed By: #### L 500.2500, L100.0100 ####[facility] [address] [place], [address] MCH (RBC) [Entitic mass] 28.5 pg Normal 27.0-32.0 [facility] Comment on above: Performed By: #### L 500.2500, L100.0100 ####[facility] [address] [place], [address] MCHC (RBC) [Mass/Vol] 31.1 g/dL Low 32-36 [facility] Comment on above: Performed By: #### L 500.2500, L100.0100 ####[facility] [address] [place], [address] MCV (RBC) [Entitic vol] 91.6 fL Normal 80-94 [facility] Comment on above: Performed By: #### L 500.2500, L100.0100 ####[facility] [address] [place], [address] Monocytes/100 WBC (Bld) 9.4 % Normal 0-10 [facility] Comment on above: Performed By: #### L 500.2500, L100.0100 ####[facility] [address] [place], [address] Neutrophils/100 WBC (Bld) 73.1 % High 47-70 [facility] Comment on above: Performed By: #### L 500.2500, L100.0100 ####[facility] [address] [place], [address] Nucleated RBC (Bld) [#/Vol] 0 10*3/uL Normal 0-5 [facility] Comment on above: Performed By: #### L 500.2500, L100.0100 ####[facility] [address] [place], [address] Platelet mean volume (Bld) [Entitic vol] 10.7 fL Normal 6.2-12.0 [facility] Comment on above: Performed By: #### L 500.2500, L100.0100 ####[facility] [address] [place], [address] Platelets (Bld) [#/Vol] 171 10*3/uL Normal 150-450 [facility] Comment on above: Performed By: #### L 500.2500, L100.0100 ####[facility] [address] [place], [address] RBC (Bld) [#/Vol] 3.82 10*6/uL Low 4.6-6.2 [facility] Comment on above: Performed By: #### L 500.2500, L100.0100 ####[facility] [address] [place], [address] RDW SD 55.0 fl High 35.1-43.9 [facility] Comment on above: Performed By: #### L 500.2500, L100.0100 ####[facility] [address] [place], [address] WBC (Bld) [#/Vol] 3.8 10*3/uL Low 4.4-11.0 [facility] Comment on above: Performed By: #### L 500.2500, L100.0100 ####[facility] [address] [place], [address] Culture, Blood (WB)on 2023 CUB Blood cultures x2, from two different sites No growth in 5 days. Normal [facility] Comment on above: Performed By: #### M 200.1000 ####[facility] [address] [place], [address] Vancomycin, Trough Levelon 0 - VANCO, TROUGH 15.5 ug/mL High 5.0-15.0 [facility] Comment on above: Order Comment: 1100 Result Comment: VANC OMYCIN STANDARED DRUG THERAPY TROUGH LEVEL: 5.0 - 15.0 mg/LVANCOMYCIN HIGH INTENSITY THERAPY TROUGH LEVEL: 15.0 - 20.0 mg/LHigh Intensity therapy recommended for serious lifethreatening infections include:- Lpufnqnjjt-Luftvlwmulbe-Qahfijeim (Ventilator/Healtcare Associated)-SepsisPLEASE CONTACT PHARMACY SERVICES (#7713) FOR INTERPRETATIONOF RESULTS. Performed By: #### L 501.8820 ####[facility] [address] [place], [address] Vancomycin, Random Levelon 0 06-22-2024 VANCO, RANDOM 15.0 ug/mL Normal 0.0-15.0 [facility] Comment on above: Result Comment: VANC OMYCIN STANDARD DRUG THERAPY: CRITICAL VALUE IS > 15.0 mg/LVANCOMYCIN HIGH INTENSITY THERAPY: CRITICAL VALUE IS > 20.0 mg/LPLEASE CONTACT PHARMACY SERVICES (#3113) FOR INTERPRETATIONOF RESULTS. THIS RESULT DOES NOT REPRESENT A PEAK OR TROUGHLEVEL FOR THIS DRUG. Performed By: #### L 501.8850 ####[facility] [address] [place], [address] Wound Cultureon 06-22-2024 WC Normal [facility] Comment on above: Performed By: #### M 100.2000, M100.3000, M8200.1075 ####[facility] [address] [place], [address] Prealbumin [id number] Prealbumin [Mass/Vol] 9 mg/dL Low 10-36 [facility] Comment on above: Result Comment: Perf ormed at: [facility] [address] [id number] Director: Micky Arreola PhD, Phone: [phone] Performed By: #### L 503.0105, T4481.2367 ####[facility] [address] [place], [place], [address] Vancomycin, Trough Levelon 0 06-21-2024 VANCO, TROUGH 22.7 ug/mL High 5.0-15.0 [facility] Comment on above: Order Comment: Comme nts: DRAW 30 MIN PRIOR TO [id number] Result Comment: VANC OMYCIN STANDARED DRUG THERAPY TROUGH LEVEL: 5.0 - 15.0 mg/LVANCOMYCIN HIGH INTENSITY THERAPY TROUGH LEVEL: 15.0 - 20.0 mg/LHigh Intensity therapy recommended for serious lifethreatening infections include:- Rgjbmaxrnl-Ubstjwncexuh-Sjbfzaoea (Ventilator/Healtcare Associated)-SepsisPLEASE CONTACT PHARMACY SERVICES (#7648) FOR INTERPRETATIONOF RESULTS. Performed By: #### L 501.8877 ####[facility] [address] [place], [address] CBC W/Diff, Automatedon 05-29 Absolute Lymph 0.22 X10 3/uL Low 0.83-4.51 [facility] Comment on above: Performed By: #### L 100.0100, L500.4050 ####[facility] [address] [place], [address] Absolute Neut 4.9 X10 3/uL Normal 2.0-7.7 [facility] Comment on above: Performed By: #### L 100.0100, L500.4050 ####[facility] [address] [place], [address] Basophils/100 WBC (Bld) 0.2 % Normal 0-1 [facility] Comment on above: Performed By: #### L 100.0100, L500.4050 ####[facility] [address] [place], [address] Eosinophils/100 WBC (Bld) 3.0 % Normal 0-5 [facility] Comment on above: Performed By: #### L 100.0100, L500.4050 ####[facility] [address] [place], [address] Erythrocyte distribution width (RBC) [Ratio] 16.5 % High 11.6-14.6 [facility] Comment on above: Performed By: #### L 100.0100, L500.4050 ####[facility] [address] [place], [address] Hematocrit (Bld) [Volume fraction] 36.1 % Low 40-54 [facility] Comment on above: Performed By: #### L 100.0100, L500.4050 ####[facility] [address] [place], [address] Hemoglobin (Bld) [Mass/Vol] 11.3 g/dL Low 13.0-16.5 [facility] Comment on above: Performed By: #### L 100.0100, L500.4050 ####[facility] [address] [place], [address] IG% 0.400 Normal 0.0-0.9 [facility] Comment on above: Result Comment: IG% - Immature Granulocytes (promyelocytes, myelocytes andmetamyelocytes) > 1% indicates that a LEFT SHIFT is Present. Performed By: #### L 100.0100, L500.4050 ####[facility] [address] [place], [address] Lymphocytes/100 WBC (Bld) 3.9 % Low 19-41 [facility] Comment on above: Performed By: #### L 100.0100, L500.4050 ####[facility] [address] [place], [address] MCH (RBC) [Entitic mass] 28.3 pg Normal 27.0-32.0 [facility] Comment on above: Performed By: #### L 100.0100, L500.4050 ####[facility] [address] [place], [address] MCHC (RBC) [Mass/Vol] 31.3 g/dL Low 32-36 [facility] Comment on above: Performed By: #### L 100.0100, L500.4050 ####[facility] [address] [place], [address] MCV (RBC) [Entitic vol] 90.3 fL Normal 80-94 [facility] Comment on above: Performed By: #### L 100.0100, L500.4050 ####[facility] [address] [place], [address] Monocytes/100 WBC (Bld) 5.8 % Normal 0-10 [facility] Comment on above: Performed By: #### L 100.0100, L500.4050 ####[facility] [address] [place], [address] Neutrophils/100 WBC (Bld) 86.7 % High 47-70 [facility] Comment on above: Performed By: #### L 100.0100, L500.4050 ####[facility] [address] [place], [address] Nucleated RBC (Bld) [#/Vol] 0 10*3/uL Normal 0-5 [facility] Comment on above: Performed By: #### L 100.0100, L500.4050 ####[facility] [address] [place], [address] Platelet mean volume (Bld) [Entitic vol] 10.2 fL Normal 6.2-12.0 [facility] Comment on above: Performed By: #### L 100.0100, L500.4050 ####[facility] [address] [place], [address] Platelets (Bld) [#/Vol] 126 10*3/uL Low 150-450 [facility] Comment on above: Performed By: #### L 100.0100, L500.4050 ####[facility] [address] [place], [address] RBC (Bld) [#/Vol] 4.00 10*6/uL Low 4.6-6.2 [facility] Comment on above: Performed By: #### L 100.0100, L500.4050 ####[facility] [address] [place], [address] RDW SD 54.8 fl High 35.1-43.9 [facility] Comment on above: Performed By: #### L 100.0100, L500.4050 ####[facility] [address] [place], [address] WBC (Bld) [#/Vol] 5.7 10*3/uL Normal 4.4-11.0 [facility] Comment on above: Performed By: #### L 100.0100, L500.4050 ####[facility] [address] [place], [address] Comprehensive Metabolic Prof ilon 06-20-2024 Albumin [Mass/Vol] 2.5 g/dL Low 3.2-5.0 [facility] Comment on above: Performed By: #### L 100.0100, L500.4050 ####[facility] [address] [place], [address] Albumin/Globulin [Mass ratio] 0.8 {ratio} Low 0.9-2.4 [facility] Comment on above: Performed By: #### L 100.0100, L500.4050 ####[facility] [address] [place], [address] ALK P 192 U/L High 45-117 [facility] Comment on above: Performed By: #### L 100.0100, L500.4050 ####[facility] [address] [place], [address] ALT [Catalytic activity/Vol] 447 U/L High 16-61 [facility] Comment on above: Performed By: #### L 100.0100, L500.4050 ####[facility] [address] [place], [address] AST [Catalytic activity/Vol] 166 U/L High 15-37 [facility] Comment on above: Performed By: #### L 100.0100, L500.4050 ####[facility] [address] [place], [address] Bilirubin [Mass/Vol] 0.80 mg/dL Normal 0.20-1.00 [facility] Comment on above: Result Comment: For patients on eltrombopag therapy, use of Dimension Earle TBIL is not recommended. Performed By: #### L 100.0100, L500.4050 ####[facility] [address] [place], [address] BUN/CRE 11.8 RATIO Normal 10-20 [facility] Comment on above: Performed By: #### L 100.0100, L500.4050 ####[facility] [address] [place], [address] CA,Total 8.4 mg/dL Low 8.5-10.1 [facility] Comment on above: Performed By: #### L 100.0100, L500.4050 ####[facility] [address] [place], [address] Chloride [Moles/Vol] 104 mmol/L Normal 98-107 [facility] Comment on above: Performed By: #### L 100.0100, L500.4050 ####[facility] [address] [place], [address] CO2 [Moles/Vol] 28.0 mmol/L Normal 21.0-32.0 [facility] Comment on above: Performed By: #### L 100.0100, L500.4050 ####[facility] [address] [place], [address] Creatinine [Mass/Vol] 1.10 mg/dL Normal 0.70-1.30 [facility] Comment on above: Result Comment: The validity of the calculated GFR GFRAA in patients over70 years has not been determined. Clinical correlation isessential. Performed By: #### L 100.0100, L500.4050 ####[facility] [address] [place], [address] ECRCL 64.34 ml/min Normal [facility] Comment on above: Performed By: #### L 100.0100, L500.4050 ####[facility] [address] [place], [address] EST GFR - AA 86 mL/min Normal >60 [facility] Comment on above: Result Comment: Afri can [place] GFR Calc Performed By: #### L 100.0100, L500.4050 ####[facility] [address] [place], [address] GAP 4 Low 5-15 [facility] Comment on above: Performed By: #### L 100.0100, L500.4050 ####[facility] [address] [place], [address] GFR/1.73 sq M.predicted among non-blacks MDRD (S/P/Bld) [Vol rate/Area] 71 mL/min/{1.73_m2} Normal >60 [facility] Comment on above: Result Comment: Non- GFR Calc Performed By: #### L 100.0100, L500.4050 ####[facility] [address] [place], [address] Globulin (S) [Mass/Vol] 3.1 g/dL Normal 2.2-4.2 [facility] Comment on above: Performed By: #### L 100.0100, L500.4050 ####[facility] [address] [place], [address] Glucose [Mass/Vol] 110 mg/dL High 74-106 [facility] Comment on above: Result Comment: Fast ing Glucose result from 100 to 125 mg/dLsuggests IMPAIRED HOMEOSTASIS per A.D.A. criteria. Performed By: #### L 100.0100, L500.4050 ####[facility] [address] [place], [address] Potassium [Moles/Vol] 3.8 mmol/L Normal 3.5-5.1 [facility] Comment on above: Performed By: #### L 100.0100, L500.4050 ####[facility] [address] [place], [address] Sodium [Moles/Vol] 136 mmol/L Normal 136-145 [facility] Comment on above: Performed By: #### L 100.0100, L500.4050 ####[facility] [address] [place], [address] T PROT 5.6 g/dL Low 6.4-8.2 [facility] Comment on above: Performed By: #### L 100.0100, L500.4050 ####[facility] [address] [place], [address] Urea nitrogen [Mass/Vol] 13 mg/dL Normal 7-18 [facility] Comment on above: Performed By: #### L 100.0100, L500.4050 ####[facility] [address] [place], [address] Ferritinon 06-20-2024 Ferritin [Mass/Vol] 456 ng/mL High 26-388 [facility] Comment on above: Performed By: #### L 501.5200, L501.2300, L503.6550, L503.6030 ####[facility] [address] [place], [address] Iron+Iron Binding Capacityon 06-20-2024 Iron [Mass/Vol] 17 ug/dL Low 65-175 [facility] Comment on above: Performed By: #### L 501.5200, L501.2300, L503.6550, L503.6030 ####[facility] [address] [place], [address] IRON SATURATION 8.2 Low 15.0-55.0 [facility] Comment on above: Performed By: #### L 501.5200, L501.2300, L503.6550, L503.6030 ####[facility] [address] [place], [address] TIBC 208 ug/dL Low 250-450 [facility] Comment on above: Performed By: #### L 501.5200, L501.2300, L503.6550, L503.6030 ####[facility] [address] [place], [address] Magnesiumon 06-20-2024 Magnesium [Mass/Vol] 2.0 mg/dL Normal 1.6-2.6 [facility] Comment on above: Performed By: #### L 501.5200, L501.2300, L503.6550, L503.6030 ####[facility] [address] [place], [address] Phosphoruson 06-20-2024 Phosphate [Mass/Vol] 3.1 mg/dL Normal 2.5-4.9 [facility] Comment on above: Performed By: #### L 501.5200, L501.2300, L503.6550, L503.6030 ####[facility] [address] [place], [address] Urine Cultureon 06-20-2024 URC Normal [facility] Comment on above: Performed By: #### M 100.2200, M100.678, L400.0001 ####[facility] [address] [place], [address] Vancomycin, Trough Levelon 0 06-20-2024 VANCO, TROUGH 13.6 ug/mL Normal 5.0-15.0 [facility] Comment on above: Order Comment: Comme nts: Trough to be drawn 30 mins prior to scheduled [id number] Result Comment: VANC OMYCIN STANDARED DRUG THERAPY TROUGH LEVEL: 5.0 - 15.0 mg/LVANCOMYCIN HIGH INTENSITY THERAPY TROUGH LEVEL: 15.0 - 20.0 mg/LHigh Intensity therapy recommended for serious lifethreatening infections include:- Rfupfgvlqn-Memdqrqvhqwj-Szimmonll (Ventilator/Healtcare Associated)-SepsisPLEASE CONTACT PHARMACY SERVICES (#4862) FOR INTERPRETATIONOF RESULTS. Performed By: #### L 501.8820 ####[facility] [address] [place], [address] Vitamin B12on 06-20-2024 Cobalamin (Vitamin B12) [Mass/Vol] 585 pg/mL Normal 211-911 [facility] Comment on above: Performed By: #### L 503.0105, L3300.6400 ####[facility] [address] [place], [address] CBC W/Diff, Automatedon 09-2 3-2023 Absolute Lymph 0.13 X10 3/uL Low 0.83-4.51 [facility] Comment on above: Performed By: #### L 501.9985, L100.0100, L500.4050 ####[facility] [address] [place], [address] Absolute Neut 4.9 X10 3/uL Normal 2.0-7.7 [facility] Comment on above: Performed By: #### L 501.9985, L100.0100, L500.4050 ####[facility] [address] [place], [address] Basophils/100 WBC (Bld) 0.4 % Normal 0-1 [facility] Comment on above: Performed By: #### L 501.9985, L100.0100, L500.4050 ####[facility] [address] [place], [address] Eosinophils/100 WBC (Bld) 2.2 % Normal 0-5 [facility] Comment on above: Performed By: #### L 501.9985, L100.0100, L500.4050 ####[facility] [address] [place], [address] Erythrocyte distribution width (RBC) [Ratio] 16.6 % High 11.6-14.6 [facility] Comment on above: Performed By: #### L 501.9985, L100.0100, L500.4050 ####[facility] [address] [place], [address] Hematocrit (Bld) [Volume fraction] 35.3 % Low 40-54 [facility] Comment on above: Performed By: #### L 501.9985, L100.0100, L500.4050 ####[facility] [address] [place], [address] Hemoglobin (Bld) [Mass/Vol] 11.4 g/dL Low 13.0-16.5 [facility] Comment on above: Performed By: #### L 501.9985, L100.0100, L500.4050 ####[facility] [address] [place], [address] IG% 0.400 Normal 0.0-0.9 [facility] Comment on above: Result Comment: IG% - Immature Granulocytes (promyelocytes, myelocytes andmetamyelocytes) > 1% indicates that a LEFT SHIFT is Present. Performed By: #### L 501.9985, L100.0100, L500.4050 ####[facility] [address] [place], [address] Lymphocytes/100 WBC (Bld) 2.4 % Low 19-41 [facility] Comment on above: Performed By: #### L 501.9985, L100.0100, L500.4050 ####[facility] [address] [place], [address] MCH (RBC) [Entitic mass] 28.8 pg Normal 27.0-32.0 [facility] Comment on above: Performed By: #### L 501.9985, L100.0100, L500.4050 ####[facility] [address] [place], [address] MCHC (RBC) [Mass/Vol] 32.3 g/dL Normal 32-36 [facility] Comment on above: Performed By: #### L 501.9985, L100.0100, L500.4050 ####[facility] [address] [place], [address] MCV (RBC) [Entitic vol] 89.1 fL Normal 80-94 [facility] Comment on above: Performed By: #### L 501.9985, L100.0100, L500.4050 ####[facility] [address] [place], [address] Monocytes/100 WBC (Bld) 6.5 % Normal 0-10 [facility] Comment on above: Performed By: #### L 501.9985, L100.0100, L500.4050 ####[facility] [address] [place], [address] Neutrophils/100 WBC (Bld) 88.1 % High 47-70 [facility] Comment on above: Performed By: #### L 501.9985, L100.0100, L500.4050 ####[facility] [address] [place], [address] Nucleated RBC (Bld) [#/Vol] 0 10*3/uL Normal 0-5 [facility] Comment on above: Performed By: #### L 501.9985, L100.0100, L500.4050 ####[facility] [address] [place], [address] Platelet mean volume (Bld) [Entitic vol] 10.3 fL Normal 6.2-12.0 [facility] Comment on above: Performed By: #### L 501.9985, L100.0100, L500.4050 ####[facility] [address] [place], [address] Platelets (Bld) [#/Vol] 126 10*3/uL Low 150-450 [facility] Comment on above: Performed By: #### L 501.9985, L100.0100, L500.4050 ####[facility] [address] [place], [address] RBC (Bld) [#/Vol] 3.96 10*6/uL Low 4.6-6.2 [facility] Comment on above: Performed By: #### L 501.9985, L100.0100, L500.4050 ####[facility] [address] [place], [address] RDW SD 54.3 fl High 35.1-43.9 [facility] Comment on above: Performed By: #### L 501.9985, L100.0100, L500.4050 ####[facility] [address] [place], [address] WBC (Bld) [#/Vol] 5.5 10*3/uL Normal 4.4-11.0 [facility] Comment on above: Performed By: #### L 501.9985, L100.0100, L500.4050 ####[facility] [address] [place], [address] Comprehensive Metabolic Prof [facility] 06-19-2024 Albumin [Mass/Vol] 2.6 g/dL Low 3.2-5.0 [facility] Comment on above: Performed By: #### L 501.9985, L100.0100, L500.4050 ####[facility] [address] [place], [address] Albumin/Globulin [Mass ratio] 0.9 {ratio} Normal 0.9-2.4 [facility] Comment on above: Performed By: #### L 501.9985, L100.0100, L500.4050 ####[facility] [address] [place], [address] ALK P 193 U/L High 45-117 [facility] Comment on above: Performed By: #### L 501.9985, L100.0100, L500.4050 ####[facility] [address] [place], [address] ALT [Catalytic activity/Vol] 636 U/L High 16-61 [facility] Comment on above: Performed By: #### L 501.9985, L100.0100, L500.4050 ####[facility] [address] [place], [address] AST [Catalytic activity/Vol] 540 U/L High 15-37 [facility] Comment on above: Performed By: #### L 501.9985, L100.0100, L500.4050 ####[facility] [address] [place], [address] Bilirubin [Mass/Vol] 0.90 mg/dL Normal 0.20-1.00 [facility] Comment on above: Result Comment: For patients on eltrombopag therapy, use of Dimension Earle TBIL is not recommended. Performed By: #### L 501.9985, L100.0100, L500.4050 ####[facility] [address] [place], [address] BUN/CRE 16.8 RATIO Normal 10-20 [facility] Comment on above: Performed By: #### L 501.9985, L100.0100, L500.4050 ####[facility] [address] [place], [address] CA,Total 8.4 mg/dL Low 8.5-10.1 [facility] Comment on above: Performed By: #### L 501.9985, L100.0100, L500.4050 ####[facility] [address] [place], [address] Chloride [Moles/Vol] 105 mmol/L Normal 98-107 [facility] Comment on above: Performed By: #### L 501.9985, L100.0100, L500.4050 ####[facility] [address] [place], [address] CO2 [Moles/Vol] 26.0 mmol/L Normal 21.0-32.0 [facility] Comment on above: Performed By: #### L 501.9985, L100.0100, L500.4050 ####[facility] [address] [place], [address] Creatinine [Mass/Vol] 1.01 mg/dL Normal 0.70-1.30 [facility] Comment on above: Result Comment: The validity of the calculated GFR GFRAA in patients over70 years has not been determined. Clinical correlation isessential. Performed By: #### L 501.9985, L100.0100, L500.4050 ####[facility] [address] [place], [address] ECRCL 70.15 ml/min Normal [facility] Comment on above: Performed By: #### L 501.9985, L100.0100, L500.4050 ####[facility] [address] [place], [address] EST GFR - AA 95 mL/min Normal >60 [facility] Comment on above: Result Comment: Afri can Bruneian GFR Calc Performed By: #### L 501.9985, L100.0100, L500.4050 ####[facility] [address] [place], [address] GAP 7 Normal 5-15 [facility] Comment on above: Performed By: #### L 501.9985, L100.0100, L500.4050 ####[facility] [address] [place], [address] GFR/1.73 sq M.predicted among non-blacks MDRD (S/P/Bld) [Vol rate/Area] 78 mL/min/{1.73_m2} Normal >60 [facility] Comment on above: Result Comment: Non- GFR Calc Performed By: #### L 501.9985, L100.0100, L500.4050 ####[facility] [address] [place], [address] Globulin (S) [Mass/Vol] 2.9 g/dL Normal 2.2-4.2 [facility] Comment on above: Performed By: #### L 501.9985, L100.0100, L500.4050 ####[facility] [address] [place], [address] Glucose [Mass/Vol] 118 mg/dL High 74-106 [facility] Comment on above: Result Comment: Fast ing Glucose result from 100 to 125 mg/dLsuggests IMPAIRED HOMEOSTASIS per A.D.A. criteria. Performed By: #### L 501.9985, L100.0100, L500.4050 ####[facility] [address] [place], [address] Potassium [Moles/Vol] 4.0 mmol/L Normal 3.5-5.1 [facility] Comment on above: Performed By: #### L 501.9985, L100.0100, L500.4050 ####[facility] [address] [place], [address] Sodium [Moles/Vol] 138 mmol/L Normal 136-145 [facility] Comment on above: Performed By: #### L 501.9985, L100.0100, L500.4050 ####[facility] [address] [place], [address] T PROT 5.5 g/dL Low 6.4-8.2 [facility] Comment on above: Performed By: #### L 501.9985, L100.0100, L500.4050 ####[facility] [address] [place], [address] Urea nitrogen [Mass/Vol] 17 mg/dL Normal 7-18 [facility] Comment on above: Performed By: #### L 501.9985, L100.0100, L500.4050 ####[facility] [address] [place], [address] Consultation - Infectious Dx on 06-19-2024 Consultation - Infectious Dx Normal [facility] Consultation - Orthopedicson 06-19-2024 Consultation - Orthopedics Normal [facility] Consultation - Surgicalon Consultation - Surgical Normal [facility] Gram Stainon 06-19-2024 GS List Antibiotics Las t 48 Hours? vancomycin, zosyn Gram Stain 2+ Gram negative rods 2+ White Blood Cells 1+ Red Blood Cells No Epithelial cells Normal [facility] Comment on above: Performed By: #### M 100.2000, M100.3000, M8200.1075 ####[facility] [address] [place], [address] Hemoglobin A1con 06-19-2024 HbA1c (Bld) [Mass fraction] 5.5 % Normal 3.8-5.6 [facility] Comment on above: Result Comment: Norm al < 5.7 % Prediabetic 5.7 - 6.4 % Diabetic >or= 6.5 % Please note range changes. Performed By: #### L 501.9985, L100.0100, L500.4050 ####[facility] [address] [place], [address] M8200.1075on 06-19-2024 M8200.1075 Normal [facility] Comment on above: Performed By: #### M 100.2000, M100.3000, M8200.1075 ####[facility] [address] [place], [address] Spine Cervical WITH Contrast on 06-19-2024 Spine Cervical WITH Contrast Normal [facility] Spine Thoracic WITH Contrast on 06-19-2024 Spine Thoracic WITH Contrast Normal [facility] 12 Lead EKGon 06-18-2024 12 Lead EKG Normal [facility] CBC W/Diff, Automatedon 09- Absolute Lymph 0.14 X10 3/uL Low 0.83-4.51 [facility] Comment on above: Performed By: #### L 100.0100, L300.3900, L500.4050, L503.6005, L300.4310 ####[facility] [address] [place], [address] Absolute Neut 6.4 X10 3/uL Normal 2.0-7.7 [facility] Comment on above: Performed By: #### L 100.0100, L300.3900, L500.4050, L503.6005, L300.4310 ####[facility] [address] [place], [address] Basophils/100 WBC (Bld) 0.1 % Normal 0-1 [facility] Comment on above: Performed By: #### L 100.0100, L300.3900, L500.4050, L503.6005, L300.4310 ####[facility] [address] [place], [address] Eosinophils/100 WBC (Bld) 1.7 % Normal 0-5 [facility] Comment on above: Performed By: #### L 100.0100, L300.3900, L500.4050, L503.6005, L300.4310 ####[facility] [address] [place], [address] Erythrocyte distribution width (RBC) [Ratio] 16.5 % High 11.6-14.6 [facility] Comment on above: Performed By: #### L 100.0100, L300.3900, L500.4050, L503.6005, L300.4310 ####[facility] [address] [place], [address] Hematocrit (Bld) [Volume fraction] 38.4 % Low 40-54 [facility] Comment on above: Performed By: #### L 100.0100, L300.3900, L500.4050, L503.6005, L300.4310 ####[facility] [address] [place], [address] Hemoglobin (Bld) [Mass/Vol] 12.2 g/dL Low 13.0-16.5 [facility] Comment on above: Performed By: #### L 100.0100, L300.3900, L500.4050, L503.6005, L300.4310 ####[facility] [address] [place], [address] IG% 0.100 Normal 0.0-0.9 [facility] Comment on above: Result Comment: IG% - Immature Granulocytes (promyelocytes, myelocytes andmetamyelocytes) > 1% indicates that a LEFT SHIFT is Present. Performed By: #### L 100.0100, L300.3900, L500.4050, L503.6005, L300.4310 ####[facility] [address] [place], [address] Lymphocytes/100 WBC (Bld) 2.0 % Low 19-41 [facility] Comment on above: Performed By: #### L 100.0100, L300.3900, L500.4050, L503.6005, L300.4310 ####[facility] [address] [place], [address] MCH (RBC) [Entitic mass] 28.5 pg Normal 27.0-32.0 [facility] Comment on above: Performed By: #### L 100.0100, L300.3900, L500.4050, L503.6005, L300.4310 ####[facility] [address] [place], [address] MCHC (RBC) [Mass/Vol] 31.8 g/dL Low 32-36 [facility] Comment on above: Performed By: #### L 100.0100, L300.3900, L500.4050, L503.6005, L300.4310 ####[facility] [address] [place], [address] MCV (RBC) [Entitic vol] 89.7 fL Normal 80-94 [facility] Comment on above: Performed By: #### L 100.0100, L300.3900, L500.4050, L503.6005, L300.4310 ####[facility] [address] [place], [address] Monocytes/100 WBC (Bld) 5.2 % Normal 0-10 [facility] Comment on above: Performed By: #### L 100.0100, L300.3900, L500.4050, L503.6005, L300.4310 ####[facility] [address] [place], [address] Neutrophils/100 WBC (Bld) 90.9 % High 47-70 [facility] Comment on above: Performed By: #### L 100.0100, L300.3900, L500.4050, L503.6005, L300.4310 ####[facility] [address] [place], [address] Nucleated RBC (Bld) [#/Vol] 0 10*3/uL Normal 0-5 [facility] Comment on above: Performed By: #### L 100.0100, L300.3900, L500.4050, L503.6005, L300.4310 ####[facility] [address] [place], [address] Platelet mean volume (Bld) [Entitic vol] 10.9 fL Normal 6.2-12.0 [facility] Comment on above: Performed By: #### L 100.0100, L300.3900, L500.4050, L503.6005, L300.4310 ####[facility] [address] [place], [address] Platelets (Bld) [#/Vol] 129 10*3/uL Low 150-450 [facility] Comment on above: Performed By: #### L 100.0100, L300.3900, L500.4050, L503.6005, L300.4310 ####[facility] [address] [place], [address] RBC (Bld) [#/Vol] 4.28 10*6/uL Low 4.6-6.2 [facility] Comment on above: Performed By: #### L 100.0100, L300.3900, L500.4050, L503.6005, L300.4310 ####[facility] [address] [place], [address] RDW SD 54.6 fl High 35.1-43.9 [facility] Comment on above: Performed By: #### L 100.0100, L300.3900, L500.4050, L503.6005, L300.4310 ####[facility] [address] [place], [address] WBC (Bld) [#/Vol] 7.1 10*3/uL Normal 4.4-11.0 [facility] Comment on above: Performed By: #### L 100.0100, L300.3900, L500.4050, L503.6005, L300.4310 ####[facility] [address] [place], [address] CRPon 06-18-2024 C-REACTIVE PROT 109.00 mg/L High 0.0-3.0 [facility] Comment on above: Order Comment: Comme nts: May add to ED labsComments: may add to ED labs Result Comment: C-Re active Protein (CRP) provides useful information for thediagnosis, therapy and monitoring of inflammatory processesand associated diseases. For the evaluation of Relative Riskfor Cardiovascular Disease, a High Sensitivity CRP (HSCRP)should be ordered. Performed By: #### L 101.9900, L501.2300, L501.5200, L501.6710 ####[facility] [address] [place], [address] Chest 1 View (Portable)on Chest 1 View (Portable) Normal [facility] Comprehensive Metabolic Prof ilon 06-18-2024 Albumin [Mass/Vol] 2.9 g/dL Low 3.2-5.0 [facility] Comment on above: Performed By: #### L 100.0100, L300.3900, L500.4050, L503.6005, L300.4310 ####[facility] [address] [place], [address] Albumin/Globulin [Mass ratio] 0.9 {ratio} Normal 0.9-2.4 [facility] Comment on above: Performed By: #### L 100.0100, L300.3900, L500.4050, L503.6005, L300.4310 ####[facility] [address] [place], [address] ALK P 179 U/L High 45-117 [facility] Comment on above: Performed By: #### L 100.0100, L300.3900, L500.4050, L503.6005, L300.4310 ####[facility] [address] [place], [address] ALT [Catalytic activity/Vol] 511 U/L High 16-61 [facility] Comment on above: Performed By: #### L 100.0100, L300.3900, L500.4050, L503.6005, L300.4310 ####[facility] [address] [place], [address] AST [Catalytic activity/Vol] 593 U/L High 15-37 [facility] Comment on above: Performed By: #### L 100.0100, L300.3900, L500.4050, L503.6005, L300.4310 ####[facility] [address] [place], [address] Bilirubin [Mass/Vol] 0.40 mg/dL Normal 0.20-1.00 [facility] Comment on above: Result Comment: For patients on eltrombopag therapy, use of Dimension Earle TBIL is not recommended. Performed By: #### L 100.0100, L300.3900, L500.4050, L503.6005, L300.4310 ####[facility] [address] [place], [address] BUN/CRE 21.5 RATIO High 10-20 [facility] Comment on above: Performed By: #### L 100.0100, L300.3900, L500.4050, L503.6005, L300.4310 ####[facility] [address] [place], [address] CA,Total 8.6 mg/dL Normal 8.5-10.1 [facility] Comment on above: Performed By: #### L 100.0100, L300.3900, L500.4050, L503.6005, L300.4310 ####[facility] [address] [place], [address] Chloride [Moles/Vol] 102 mmol/L Normal 98-107 [facility] Comment on above: Performed By: #### L 100.0100, L300.3900, L500.4050, L503.6005, L300.4310 ####[facility] [address] [place], [address] CO2 [Moles/Vol] 24.0 mmol/L Normal 21.0-32.0 [facility] Comment on above: Performed By: #### L 100.0100, L300.3900, L500.4050, L503.6005, L300.4310 ####[facility] [address] [place], [address] Creatinine [Mass/Vol] 1.21 mg/dL Normal 0.70-1.30 [facility] Comment on above: Result Comment: The validity of the calculated GFR GFRAA in patients over70 years has not been determined. Clinical correlation isessential. Performed By: #### L 100.0100, L300.3900, L500.4050, L503.6005, L300.4310 ####[facility] [address] [place], [address] ECRCL 59.75 ml/min Normal [facility] Comment on above: Performed By: #### L 100.0100, L300.3900, L500.4050, L503.6005, L300.4310 ####[facility] [address] [place], [address] EST GFR - AA 77 mL/min Normal >60 [facility] Comment on above: Result Comment: Afri can [place] GFR Calc Performed By: #### L 100.0100, L300.3900, L500.4050, L503.6005, L300.4310 ####[facility] [address] [place], [address] GAP 9 Normal 5-15 [facility] Comment on above: Performed By: #### L 100.0100, L300.3900, L500.4050, L503.6005, L300.4310 ####[facility] [address] [place], [address] GFR/1.73 sq M.predicted among non-blacks MDRD (S/P/Bld) [Vol rate/Area] 64 mL/min/{1.73_m2} Normal >60 [facility] Comment on above: Result Comment: Non- GFR Calc Performed By: #### L 100.0100, L300.3900, L500.4050, L503.6005, L300.4310 ####[facility] [address] [place], [address] Globulin (S) [Mass/Vol] 3.1 g/dL Normal 2.2-4.2 [facility] Comment on above: Performed By: #### L 100.0100, L300.3900, L500.4050, L503.6005, L300.4310 ####[facility] [address] [place], [address] Glucose [Mass/Vol] 158 mg/dL High 74-106 [facility] Comment on above: Result Comment: Fast ing Glucose result greater than or equal to 126 mg/dLsuggests DIABETES MELLITUS per A.D.A. criteria. Performed By: #### L 100.0100, L300.3900, L500.4050, L503.6005, L300.4310 ####[facility] [address] [place], [address] Potassium [Moles/Vol] 3.9 mmol/L Normal 3.5-5.1 [facility] Comment on above: Performed By: #### L 100.0100, L300.3900, L500.4050, L503.6005, L300.4310 ####[facility] [address] [place], [address] Sodium [Moles/Vol] 135 mmol/L Low 136-145 [facility] Comment on above: Performed By: #### L 100.0100, L300.3900, L500.4050, L503.6005, L300.4310 ####[facility] [address] [place], [address] T PROT 6.0 g/dL Low 6.4-8.2 [facility] Comment on above: Performed By: #### L 100.0100, L300.3900, L500.4050, L503.6005, L300.4310 ####[facility] [address] [place], [address] Urea nitrogen [Mass/Vol] 26 mg/dL High 7-18 [facility] Comment on above: Performed By: #### L 100.0100, L300.3900, L500.4050, L503.6005, L300.4310 ####[facility] [address] [place], [address] Emergency Department Summary on 06-18-2024 Emergency Department Summary Normal [facility] Erythrocyte Sed Rateon 06-18 SED RATE 47 mm/hr High 0-20 [facility] Comment on above: Performed By: #### L 101.9900, L501.2300, L501.5200, L501.6710 ####[facility] [address] [place], [address] Gallbladderon 06-18-2024 Gallbladder Normal [facility] H AND P Exam - Hospitaliston 06-18-2024 H&P Exam - Hospitalist Normal [facility] Lactic Acidon 06-18-2024 Lactate [Moles/Vol] 1.5 mmol/L Normal 0.4-1.9 [facility] Comment on above: Order Comment: Y Performed By: #### L 100.0100, L300.3900, L500.4050, L503.6005, L300.4310 ####[facility] [address] [place], [address] M100.678on 06-18-2024 M100.678 Pending SARS-CoV-2 (COVID 19) Negative INFLUENZA A Negative INFLUENZA B Negative RSV PCR Negative Normal [facility] Comment on above: Performed By: #### M 100.2200, M100.678, L400.0001 ####[facility] [address] [place], [address] Magnesiumon 06-18-2024 Magnesium [Mass/Vol] 1.6 mg/dL Normal 1.6-2.6 [facility] Comment on above: Order Comment: Comme nts: May add to ED labsComments: may add to ED labs Performed By: #### L 101.9900, L501.2300, L501.5200, L501.6710 ####[facility] [address] [place], [address] Partial Thromboplast Timeon 06-18-2024 aPTT Coag (Bld) [Time] 40.0 s High 24.1-36.2 [facility] Comment on above: Performed By: #### L 100.0100, L300.3900, L500.4050, L503.6005, L300.4310 ####[facility] [address] [place], [address] Phosphoruson 06-18-2024 Phosphate [Mass/Vol] 2.5 mg/dL Normal 2.5-4.9 [facility] Comment on above: Order Comment: Comme nts: May add to ED labsComments: may add to ED labs Performed By: #### L 101.9900, L501.2300, L501.5200, L501.6710 ####[facility] [address] [place], [address] Prothrombin Time w/INRon INR Coag (PPP) [Relative time] 1.3 {INR} Normal [facility] Comment on above: Performed By: #### L 100.0100, L300.3900, L500.4050, L503.6005, L300.4310 ####[facility] [address] [place], [address] PT Coag (PPP) [Time] 16.3 s High 11.7-14.9 [facility] Comment on above: Performed By: #### L 100.0100, L300.3900, L500.4050, L503.6005, L300.4310 ####[facility] [address] [place], [address] Urinalysis, Completeon 06-18 BACTERIA RARE Normal None Seen [facility] Comment on above: Order Comment: COLLE CTOR TO SPECIFY Performed By: #### M 100.2200, M100.678, L400.0001 ####[facility] [address] [place], [address] RBC 0-5 SEEN Normal 0-5 [facility] Comment on above: Order Comment: FLAKITO CTOR TO SPECIFY Performed By: #### M 100.2200, M100.678, L400.0001 ####[facility] [address] [place], [address] WBC 5-10 SEEN Normal 0-5 [facility] Comment on above: Order Comment: FLAKITO CTOR TO SPECIFY Performed By: #### M 100.2200, M100.678, L400.0001 ####[facility] [address] [place], [address] EPI,SQUAMOUS 0 SEEN Normal 0-5 [facility] Comment on above: Order Comment: FLAKITO CTOR TO SPECIFY Performed By: #### M 100.2200, M100.678, L400.0001 ####[facility] [address] [place], [address] Mucus Ql (Urine sed) 0 SEEN Normal [facility] Comment on above: Order Comment: COLLE CTOR TO SPECIFY Performed By: #### M 100.2200, M100.678, L400.0001 ####[facility] [address] [place], [address] PATINSon 06-14-2024 PATINS Follow-up Appointmen ts with Dr. Munoz Return Appointment in 1 week. Call [place] wound center at [phone], [facility] at [phone], or [facility] center at [phone]. Follow nutritious diet including, increasing protein to 100 grams a day Avoid pressure, friction, shearing to wound area. Wound Care Instructions; Daily (Discontinue snap vac at this time) Cleanse wound with mild soap and water and pat dry. Lightly pack wounds with mesalt rope, leave tail out Apply Calcium Alginate Cover with ABD, tape to secure Dr. Munoz prescribing ATB for wound, take as directed. Directions for Mcfp: If wound loses suction: Remove snap back and apply wet to dry dressing until your next appointment, call wound clinic to notify of snap losing suction. Signs and symptoms of wound infection: - fever - flu-like symptoms - pus or unusual drainage - foul odor - worsening of wound - spreading redness or warmth around the wound - increased pain - increasing and/or uncontrolled blood sugar for diabetics Please call the wound center at [phone] if you are experiencing this. If we are closed and you are unable to reach us in person please go to the ER. [facility] Progress Noteon 06-14-2024 Progress Note Assessments Nursing Assessment/Reassessmen t Score (check box all that apply) Reassessment of Co-morbidities (includes updates in patient status) 10 [x] Wound and Skin Assessment/Reassessmen t 5 [x] Reassessment of Adherence to Treatment Plan Simple Wound Assessment / Reassessment - one wound 5 [] Complex Wound Assessment - multiple wounds (# of: 2 ) multiply by 5 to get score 10 [x] Dermatologic / Skin Assessment (not related to wound area) 10 [x] Focused Assessment Circumferential Edema Measurements - multi extremities (# of: 0) multiply by 5 to get score 0 [] Nutritional Assessment/Counseling/ Intervention 10 [] Lower Extremity Assessment (monofilament, tuning fork, pulses) 5 [] Peripheral Arterial Disease Assessment (using hand-held doppler) 10 [] Ostomy and/or Continence Assessment & Care Incontinence Assessment and Management 10 [] Ostomy Care Assessment and Management (repouching, etc) 20 [] Process Coordination of Care Simple Patient/Family Education for ongoing care 15 [x] Complex (extensive) Patient/Family Education for ongoing of care 20 [] Staff obtains Consent, Records, Test Results/Process Orders 10 [] Staff telephones SCHOOL COMMUNITY RELATIONS COORDINATOR, Nursing Homes/Clarify Orders 10 [x] Routine Transfer to another Facility (non-emergent condition) 10 [] Routine Hospital Admission (non-emergent condition) 10 [] New Admissions/Insurance Auth/Ordering NPWT, skin substitute, etc. 15 [] Emergency Hospital Admission (emergent condition) 20 [] Simple Discharge Coordination 10 [] Complex (extensive) Discharge Coordination 15 [] Special Needs Pediatric / Minor Patient Management 10 [] Isolation Patient Management 10 [] Hearing/Language/Visua l Special Needs 15 [] Assessment of Community Assistance (transportation, discharge planning) 15 [] Additional Assistance / Altered Mentation 15 [] Support Surface Assessment (bed, cushion, seat) 15 [] Interventions Wound Cleansing/Measurement Simple Wound Cleansing - one wound 5 [] Complex Wound Cleansing - multiple wounds (# of: 2) multiply by 5 to get score 10 [x] Wound Imaging (photographs - any number of wounds) 5 [x] Wound Tracing (instead of photographs) 5 [] Simple Wound Measurements - one wound 5 [] Complex Wound Measuremnts - multiple wounds (#of: 2) multiply by 5 to get score 10 2 Wound Dressings Small Wound Dressing - one or multiple wounds (# of: 2 ) multiply by 10 to get score 20 [x] Medium Wound Dressing - one or multiple wounds (# of: 0 ) multiply by 15 to get score 0 [] Large Wound Dressing - one or multiple wounds (# of: 0) multiply by 20 to get score 0 [] Application of Medications - topical 5 [] Application of Medication - injection 10 [] Miscellaneous External Ear Exam Specimen Collection (culture, biopsies, blood, body fluids, etc) 5 [] Specimen/Culture sent or taken to lab for analysis 5 [] Patient Transfer (multiple staff/[place] lift) 10 [] Simple Staple/Suture Removal (25 or less) 5 [] Complex Staple/Suture Removal (26 or more) 10 [] Hypo/Hyperglycemic Management 10 [] Ankle/Brachial Index (KELLIE) 15 [] Vital Signs 5 [x] Total Points - Use to Determine Level of Clinic Visit 100 Points Betancourt: Level 1 (1-35 Points) Level 2 (40-75 Points) Level 3 (80-115 Points) Level 4 (120-155 Points) Level 5 (160 or more Points) Normal [facility] ELINA + Protein Mary Martinezon 06-09-2024 Albumin [Mass/Vol] 3.4 g/dL Normal 2.9-4.4 [facility] Comment on above: Order Comment: N Performed By: #### L 3130.0010, L100.0100, L3100.3425, L500.4050 ####[facility] [address] [place], [address] Albumin/Globulin [Mass ratio] 1.5 {ratio} Normal 0.7-1.7 [facility] Comment on above: Order Comment: N Performed By: #### L 3130.0010, L100.0100, L3100.3425, L500.4050 ####[facility] [address] [place], [address] NKXZC-9-VSLY 0.2 g/dL Normal 0.0-0.4 [facility] Comment on above: Order Comment: N Performed By: #### L 3130.0010, L100.0100, L3100.3425, L500.4050 ####[facility] [address] [place], [address] URQYC-9-WLTG 0.8 g/dL Normal 0.4-1.0 [facility] Comment on above: Order Comment: N Performed By: #### L 3130.0010, L100.0100, L3100.3425, L500.4050 ####[facility] [address] [place], [address] BETA GLOBULIN 0.9 g/dL Normal 0.7-1.3 [facility] Comment on above: Order Comment: N Performed By: #### L 3130.0010, L100.0100, L3100.3425, L500.4050 ####[facility] [address] [place], [address] GAMMA GLOBULIN 0.5 g/dL Normal 0.4-1.8 [facility] Comment on above: Order Comment: N Performed By: #### L 3130.0010, L100.0100, L3100.3425, L500.4050 ####[facility] [address] [place], [address] Globulin (S) [Mass/Vol] 2.3 g/dL Normal 2.2-3.9 [facility] Comment on above: Order Comment: N Performed By: #### L 3130.0010, L100.0100, L3100.3425, L500.4050 ####[facility] [address] [place], [address] ELINA RESULT,S Comment Abnormal . [facility] Comment on above: Order Comment: N Result Comment: Immu nofixation shows IgG monoclonal protein with kappalight chain specificity. PLEASE NOTE: Samples from patients receiving DARZALEX(R)(daratumumab) or SARCLISA(R)(isatuximab-irfc) treatmentcan appear as an IgG kappa and mask a complete response(CR). If this patient is receiving these therapies, thisIFE assay interference can be removed by ordering testnumber [id number], Daratumumab-Specific,Serum or [id number]-Apdhjfnhmyylyb, Isatuximab-Specific,Serum and submitting a new sample for testing or bycalling the lab to add this test to the current sample. Performed By: #### L 3130.0010, L100.0100, L3100.3425, L500.4050 ####[facility] [address] [place], [address] IMMUNOGLOB A QN 36 mg/dL Low 61-437 [facility] Comment on above: Order Comment: N Result Comment: Resu lt confirmed on concentration. Performed By: #### L 3130.0010, L100.0100, L3100.3425, L500.4050 ####[facility] [address] [place], [address] IMMUNOGLOB G QN 577 mg/dL Low 603-1613 [facility] Comment on above: Order Comment: N Performed By: #### L 3130.0010, L100.0100, L3100.3425, L500.4050 ####[facility] [address] [place], [address] IMMUNOGLOB M QN 8 mg/dL Low 20-172 [facility] Comment on above: Order Comment: N Result Comment: Resu lt confirmed on concentration. Performed By: #### L 3130.0010, L100.0100, L3100.3425, L500.4050 ####[facility] [address] [place], [address] M-Raúl 0.1 g/dL Abnormal Not Observed [facility] Comment on above: Order Comment: N Performed By: #### L 3130.0010, L100.0100, L3100.3425, L500.4050 ####[facility] [address] [place], [address] NOTE: Comment Normal . [facility] Comment on above: Order Comment: N Result Comment: Prot ein electrophoresis scan will follow via computer,mail, or lean leader delivery. Performed By: #### L 3130.0010, L100.0100, L3100.3425, L500.4050 ####[facility] [address] [place], [address] Protein [Mass/Vol] 5.7 g/dL Low 6.0-8.5 [facility] Comment on above: Order Comment: N Performed By: #### L 3130.0010, L100.0100, L3100.3425, L500.4050 ####[facility] [address] [place], [address] [facility] [employer] Chainson 06-09-2024 FR KAPPA LT CHN 6.0 mg/L Normal 3.3-19.4 [facility] Comment on above: Order Comment: N Performed By: #### L 3130.0010, L100.0100, L3100.3425, L500.4050 ####[facility] [address] [place], [address] FR LAMBDA LT CH 3.2 mg/L Abnormal 5.7-26.3 [facility] Comment on above: Order Comment: N Performed By: #### L 3130.0010, L100.0100, L3100.3425, L500.4050 ####[facility] [address] [place], [place], [address] KAPPA/LAMBDA % 1.88 Abnormal 0.26-1.65 [facility] Comment on above: Order Comment: N Result Comment: Perf ormed at: [facility] [address] [id number] Director: Micky Arreola PhD, Phone: [phone] Performed By: #### L 3130.0010, L100.0100, L3100.3425, L500.4050 ####[facility] [address] [place], [place], [id number] OT D/C Summaryon 06-08-2024 OT D/C Summary Normal [facility] OT D/C of Non Returning Pton 06-08-2024 OT D/C of Non Returning Pt Normal [facility] CBC W/Diff, Automatedon 05-28 Absolute Lymph 0.60 X10 3/uL Low 0.83-4.51 [facility] Comment on above: Performed By: #### L 100.0100, L500.4050 ####[facility] [address] [place], [address] Absolute Neut 3.0 X10 3/uL Normal 2.0-7.7 [facility] Comment on above: Performed By: #### L 100.0100, L500.4050 ####[facility] [address] [place], [address] Basophils/100 WBC (Bld) 0.9 % Normal 0-1 [facility] Comment on above: Performed By: #### L 100.0100, L500.4050 ####[facility] [address] [place], [address] Eosinophils/100 WBC (Bld) 3.0 % Normal 0-5 [facility] Comment on above: Performed By: #### L 100.0100, L500.4050 ####[facility] [address] [place], [address] Erythrocyte distribution width (RBC) [Ratio] 16.3 % High 11.6-14.6 [facility] Comment on above: Performed By: #### L 100.0100, L500.4050 ####[facility] [address] [place], [address] Hematocrit (Bld) [Volume fraction] 39.0 % Low 40-54 [facility] Comment on above: Performed By: #### L 100.0100, L500.4050 ####[facility] [address] [place], [address] Hemoglobin (Bld) [Mass/Vol] 12.3 g/dL Low 13.0-16.5 [facility] Comment on above: Performed By: #### L 100.0100, L500.4050 ####[facility] [address] [place], [address] IG% 0.200 Normal 0.0-0.9 [facility] Comment on above: Result Comment: IG% - Immature Granulocytes (promyelocytes, myelocytes andmetamyelocytes) > 1% indicates that a LEFT SHIFT is Present. Performed By: #### L 100.0100, L500.4050 ####[facility] [address] [place], [address] Lymphocytes/100 WBC (Bld) 14.0 % Low 19-41 [facility] Comment on above: Performed By: #### L 100.0100, L500.4050 ####[facility] [address] [place], [address] MCH (RBC) [Entitic mass] 28.3 pg Normal 27.0-32.0 [facility] Comment on above: Performed By: #### L 100.0100, L500.4050 ####[facility] [address] [place], [address] MCHC (RBC) [Mass/Vol] 31.5 g/dL Low 32-36 [facility] Comment on above: Performed By: #### L 100.0100, L500.4050 ####[facility] [address] [place], [address] MCV (RBC) [Entitic vol] 89.7 fL Normal 80-94 [facility] Comment on above: Performed By: #### L 100.0100, L500.4050 ####[facility] [address] [place], [address] Monocytes/100 WBC (Bld) 12.1 % High 0-10 [facility] Comment on above: Performed By: #### L 100.0100, L500.4050 ####[facility] [address] [place], [address] Neutrophils/100 WBC (Bld) 69.8 % Normal 47-70 [facility] Comment on above: Performed By: #### L 100.0100, L500.4050 ####[facility] [address] [place], [address] Nucleated RBC (Bld) [#/Vol] 0 10*3/uL Normal 0-5 [facility] Comment on above: Performed By: #### L 100.0100, L500.4050 ####[facility] [address] [place], [address] Platelet mean volume (Bld) [Entitic vol] 9.9 fL Normal 6.2-12.0 [facility] Comment on above: Performed By: #### L 100.0100, L500.4050 ####[facility] [address] [place], [address] Platelets (Bld) [#/Vol] 165 10*3/uL Normal 150-450 [facility] Comment on above: Performed By: #### L 100.0100, L500.4050 ####[facility] [address] [place], [address] RBC (Bld) [#/Vol] 4.35 10*6/uL Low 4.6-6.2 [facility] Comment on above: Performed By: #### L 100.0100, L500.4050 ####[facility] [address] [place], [address] RDW SD 53.7 fl High 35.1-43.9 [facility] Comment on above: Performed By: #### L 100.0100, L500.4050 ####[facility] [address] [place], [address] WBC (Bld) [#/Vol] 4.3 10*3/uL Low 4.4-11.0 [facility] Comment on above: Performed By: #### L 100.0100, L500.4050 ####[facility] [address] [place], [address] Absolute Neut Normal 2.0-7.7 [facility] Comment on above: Result Comment: DUPL ICATED ORDERS Performed By: #### L 3130.0010, L100.0100, L3100.3425, L500.4050 ####[facility] [address] [place], [address] HCT Normal 40-54 [facility] Comment on above: Result Comment: DUPL ICATED ORDERS Performed By: #### L 3130.0010, L100.0100, L3100.3425, L500.4050 ####[facility] [address] [place], [address] HGB Normal 13.0-16.5 [facility] Comment on above: Result Comment: DUPL ICATED ORDERS Performed By: #### L 3130.0010, L100.0100, L3100.3425, L500.4050 ####[facility] [address] [place], [address] MCH Normal 27.0-32.0 [facility] Comment on above: Result Comment: DUPL ICATED ORDERS Performed By: #### L 3130.0010, L100.0100, L3100.3425, L500.4050 ####[facility] [address] [place], [address] MCHC Normal 32-36 [facility] Comment on above: Result Comment: DUPL ICATED ORDERS Performed By: #### L 3130.0010, L100.0100, L3100.3425, L500.4050 ####[facility] [address] [place], [address] MCV Normal 80-94 [facility] Comment on above: Result Comment: DUPL ICATED ORDERS Performed By: #### L 3130.0010, L100.0100, L3100.3425, L500.4050 ####[facility] [address] [place], [address] NEUT% Normal 47-70 [facility] Comment on above: Result Comment: DUPL ICATED ORDERS Performed By: #### L 3130.0010, L100.0100, L3100.3425, L500.4050 ####[facility] [address] [place], [address] PLT Normal 150-450 [facility] Comment on above: Result Comment: DUPL ICATED ORDERS Performed By: #### L 3130.0010, L100.0100, L3100.3425, L500.4050 ####[facility] [address] [place], [address] RBC Normal 4.6-6.2 [facility] Comment on above: Result Comment: DUPL ICATED ORDERS Performed By: #### L 3130.0010, L100.0100, L3100.3425, L500.4050 ####[facility] [address] [place], [address] RDW CV Normal 11.6-14.6 [facility] Comment on above: Result Comment: DUPL ICATED ORDERS Performed By: #### L 3130.0010, L100.0100, L3100.3425, L500.4050 ####[facility] [address] [place], [address] RDW SD Normal 35.1-43.9 [facility] Comment on above: Result Comment: DUPL ICATED ORDERS Performed By: #### L 3130.0010, L100.0100, L3100.3425, L500.4050 ####[facility] [address] [place], [address] WBC Normal 4.4-11.0 [facility] Comment on above: Result Comment: DUPL ICATED ORDERS Performed By: #### L 3130.0010, L100.0100, L3100.3425, L500.4050 ####[facility] [address] [place], [address] Comprehensive Metabolic Prof ilon 06-07-2024 Albumin [Mass/Vol] 3.2 g/dL Normal 3.2-5.0 [facility] Comment on above: Performed By: #### L 100.0100, L500.4050 ####[facility] [address] [place], [address] Albumin/Globulin [Mass ratio] 1.0 {ratio} Normal 0.9-2.4 [facility] Comment on above: Performed By: #### L 100.0100, L500.4050 ####[facility] [address] [place], [address] ALK P 62 U/L Normal 45-117 [facility] Comment on above: Performed By: #### L 100.0100, L500.4050 ####[facility] [address] [place], [address] ALT [Catalytic activity/Vol] 17 U/L Normal 16-61 [facility] Comment on above: Performed By: #### L 100.0100, L500.4050 ####[facility] [address] [place], [address] AST [Catalytic activity/Vol] 13 U/L Low 15-37 [facility] Comment on above: Performed By: #### L 100.0100, L500.4050 ####[facility] [address] [place], [address] Bilirubin [Mass/Vol] 0.30 mg/dL Normal 0.20-1.00 [facility] Comment on above: Result Comment: For patients on eltrombopag therapy, use of Dimension Earle TBIL is not recommended. Performed By: #### L 100.0100, L500.4050 ####[facility] [address] [place], [address] BUN/CRE 23.1 RATIO High 10-20 [facility] Comment on above: Performed By: #### L 100.0100, L500.4050 ####[facility] [address] [place], [address] CA,Total 9.3 mg/dL Normal 8.5-10.1 [facility] Comment on above: Performed By: #### L 100.0100, L500.4050 ####[facility] [address] [place], [address] Chloride [Moles/Vol] 103 mmol/L Normal 98-107 [facility] Comment on above: Performed By: #### L 100.0100, L500.4050 ####[facility] [address] [place], [address] CO2 [Moles/Vol] 30.0 mmol/L Normal 21.0-32.0 [facility] Comment on above: Performed By: #### L 100.0100, L500.4050 ####[facility] [address] [place], [address] Creatinine [Mass/Vol] 0.95 mg/dL Normal 0.70-1.30 [facility] Comment on above: Result Comment: The validity of the calculated GFR GFRAA in patients over70 years has not been determined. Clinical correlation isessential. Performed By: #### L 100.0100, L500.4050 ####[facility] [address] [place], [address] ECRCL 76.24 ml/min Normal [facility] Comment on above: Performed By: #### L 100.0100, L500.4050 ####[facility] [address] [place], [address] EST GFR - AA 102 mL/min Normal >60 [facility] Comment on above: Result Comment: Afri can [place] GFR Calc Performed By: #### L 100.0100, L500.4050 ####[facility] [address] [place], [address] GAP 6 Normal 5-15 [facility] Comment on above: Performed By: #### L 100.0100, L500.4050 ####[facility] [address] [place], [address] GFR/1.73 sq M.predicted among non-blacks MDRD (S/P/Bld) [Vol rate/Area] 84 mL/min/{1.73_m2} Normal >60 [facility] Comment on above: Result Comment: Non- GFR Calc Performed By: #### L 100.0100, L500.4050 ####[facility] [address] [place], [address] Globulin (S) [Mass/Vol] 3.2 g/dL Normal 2.2-4.2 [facility] Comment on above: Performed By: #### L 100.0100, L500.4050 ####[facility] [address] [place], [address] Glucose [Mass/Vol] 124 mg/dL High 74-106 [facility] Comment on above: Result Comment: Fast ing Glucose result from 100 to 125 mg/dLsuggests IMPAIRED HOMEOSTASIS per A.D.A. criteria. Performed By: #### L 100.0100, L500.4050 ####[facility] [address] [place], [address] Potassium [Moles/Vol] 4.0 mmol/L Normal 3.5-5.1 [facility] Comment on above: Performed By: #### L 100.0100, L500.4050 ####[facility] [address] [place], [address] Sodium [Moles/Vol] 139 mmol/L Normal 136-145 [facility] Comment on above: Performed By: #### L 100.0100, L500.4050 ####[facility] [address] [place], [address] T PROT 6.4 g/dL Normal 6.4-8.2 [facility] Comment on above: Performed By: #### L 100.0100, L500.4050 ####[facility] [address] [place], [address] Urea nitrogen [Mass/Vol] 22 mg/dL High 7-18 [facility] Comment on above: Performed By: #### L 100.0100, L500.4050 ####[facility] [address] [place], [address] ALB Normal 3.2-5.0 [facility] Comment on above: Result Comment: DUPL ICATED ORDERS Performed By: #### L 3130.0010, L100.0100, L3100.3425, L500.4050 ####[facility] [address] [place], [address] ALK P Normal 45-117 [facility] Comment on above: Result Comment: DUPL ICATED ORDERS Performed By: #### L 3130.0010, L100.0100, L3100.3425, L500.4050 ####[facility] [address] [place], [address] ALT Normal 16-61 [facility] Comment on above: Result Comment: DUPL ICATED ORDERS Performed By: #### L 3130.0010, L100.0100, L3100.3425, L500.4050 ####[facility] [address] [place], [address] AST Normal 15-37 [facility] Comment on above: Result Comment: DUPL ICATED ORDERS Performed By: #### L 3130.0010, L100.0100, L3100.3425, L500.4050 ####[facility] [address] [place], [address] BUN Normal 7-18 [facility] Comment on above: Result Comment: DUPL ICATED ORDERS Performed By: #### L 3130.0010, L100.0100, L3100.3425, L500.4050 ####[facility] [address] [place], [address] BUN/CRE Normal 10-20 [facility] Comment on above: Result Comment: DUPL ICATED ORDERS Performed By: #### L 3130.0010, L100.0100, L3100.3425, L500.4050 ####[facility] [address] [place], [address] CA,Total Normal 8.5-10.1 [facility] Comment on above: Result Comment: DUPL ICATED ORDERS Performed By: #### L 3130.0010, L100.0100, L3100.3425, L500.4050 ####[facility] [address] [place], [address] CL Normal 98-107 [facility] Comment on above: Result Comment: DUPL ICATED ORDERS Performed By: #### L 3130.0010, L100.0100, L3100.3425, L500.4050 ####[facility] [address] [place], [address] CO2 Normal 21.0-32.0 [facility] Comment on above: Result Comment: DUPL ICATED ORDERS Performed By: #### L 3130.0010, L100.0100, L3100.3425, L500.4050 ####[facility] [address] [place], [address] CREAT,SERUM Normal 0.70-1.30 [facility] Comment on above: Result Comment: DUPL ICATED ORDERS Performed By: #### L 3130.0010, L100.0100, L3100.3425, L500.4050 ####[facility] [address] [place], [address] EST GFR Normal >60 [facility] Comment on above: Result Comment: DUPL ICATED ORDERS Performed By: #### L 3130.0010, L100.0100, L3100.3425, L500.4050 ####[facility] [address] [place], [address] EST GFR - AA Normal >60 [facility] Comment on above: Result Comment: DUPL ICATED ORDERS Performed By: #### L 3130.0010, L100.0100, L3100.3425, L500.4050 ####[facility] [address] [place], [address] GAP Normal 5-15 [facility] Comment on above: Result Comment: DUPL ICATED ORDERS Performed By: #### L 3130.0010, L100.0100, L3100.3425, L500.4050 ####[facility] [address] [place], [address] GLU Normal 74-106 [facility] Comment on above: Result Comment: DUPL ICATED ORDERS Performed By: #### L 3130.0010, L100.0100, L3100.3425, L500.4050 ####[facility] [address] [place], [address] Potassium Normal 3.5-5.1 [facility] Comment on above: Result Comment: DUPL ICATED ORDERS Performed By: #### L 3130.0010, L100.0100, L3100.3425, L500.4050 ####[facility] [address] [place], [address] T BILI Normal 0.20-1.00 [facility] Comment on above: Result Comment: DUPL ICATED ORDERS Performed By: #### L 3130.0010, L100.0100, L3100.3425, L500.4050 ####[facility] [address] [place], [address] T PROT Normal 6.4-8.2 [facility] Comment on above: Result Comment: DUPL ICATED ORDERS Performed By: #### L 3130.0010, L100.0100, L3100.3425, L500.4050 ####[facility] [address] [place], [address] Comprehensive Metabolic Profil Normal 136-145 [facility] Comment on above: Result Comment: DUPL ICATED ORDERS Performed By: #### L 3130.0010, L100.0100, L3100.3425, L500.4050 ####[facility] [address] [place], [address] Oncology Visit Reporton 05-28 Oncology Visit Report Normal [facility] PATINSon 06-05-2024 PATINS Follow-up Appointmen ts with Dr. Munoz Return Appointment in 1 week. Call [place] [facility] at [phone], [facility] at [phone], or [facility] center at [phone]. Follow nutritious diet including, increasing protein to 100 grams a day Avoid pressure, friction, shearing to wound area. Wound Care Instructions; Upper back Dressing change to consist of: (Weekly at Wound Center) - Remove old dressing and discard per policy. - Cleanse with normal saline., pat dry - Apply skin prep to ritika-wound. - Apply dressing from NPWT kit, apply blue foam to wound bed. - Set cycle on NPWT pump to suction - Set pressure on NPWT pump (Using large canister) - Change dressing weekly shower or tub bath. Directions for Mcfp: If wound loses suction: Remove snap back and apply wet to dry dressing until your next appointment, call wound clinic to notify of snap losing suction. Signs and symptoms of wound infection: - fever - flu-like symptoms - pus or unusual drainage - foul odor - worsening of wound - spreading redness or warmth around the wound - increased pain - increasing and/or uncontrolled blood sugar for diabetics Please call the wound center at [phone] if you are experiencing this. If we are closed and you are unable to reach us in person please go to the ER. [facility] 05-24-2024 PATI Follow-up Appointmen ts with Dr. Munoz Return Appointment in 1 week. Call [place] wound center at [phone], [facility] at [phone], or [facility] Wound center at [phone]. Follow nutritious diet including, increasing protein to 100 grams a day Avoid pressure, friction, shearing to wound area. Wound Care Instructions; Upper back Dressing change to consist of: (Weekly at Wound Center) - Remove old dressing and discard per policy. - Cleanse with normal saline., pat dry - Apply skin prep to ritika-wound. - Apply dressing from NPWT kit, apply blue foam to wound bed. - Set cycle on NPWT pump to suction - Set pressure on NPWT pump (Using large canister) - Change dressing weekly shower or tub bath. Directions for Mcfp: If wound loses suction: Remove snap back and apply wet to dry dressing until your next appointment, call wound clinic to notify of snap losing suction. Signs and symptoms of wound infection: - fever - flu-like symptoms - pus or unusual drainage - foul odor - worsening of wound - spreading redness or warmth around the wound - increased pain - increasing and/or uncontrolled blood sugar for diabetics Please call the wound center at [phone] if you are experiencing this. If we are closed and you are unable to reach us in person please go to the ER. [facility] 05-17-2024 PATI Follow-up Appointmen ts with Dr. Munoz Return Appointment in 1 week. Call [place] wound center at [phone], [facility] at [phone], or [facility] center at [phone]. Follow nutritious diet including, increasing protein to 100 grams a day Avoid pressure, friction, shearing to wound area. Wound Care Instructions; Upper back Dressing change to consist of: (Weekly at Wound Center) - Remove old dressing and discard per policy. - Cleanse with normal saline., pat dry - Apply skin prep to ritika-wound. - Apply dressing from NPWT kit, apply blue foam to wound bed. - Set cycle on NPWT pump to suction - Set pressure on NPWT pump (Using large canister) - Change dressing weekly shower or tub bath. Directions for Mcfp: If wound loses suction: Remove snap back and apply wet to dry dressing until your next appointment. Signs and symptoms of wound infection: - fever - flu-like symptoms - pus or unusual drainage - foul odor - worsening of wound - spreading redness or warmth around the wound - increased pain - increasing and/or uncontrolled blood sugar for diabetics Please call the wound center at [phone] if you are experiencing this. If we are closed and you are unable to reach us in person please go to the ER. [facility] CBC W/Diff, Automatedon 04-27 Absolute Lymph 0.54 X10 3/uL Low 0.83-4.51 [facility] Comment on above: Performed By: #### L 100.0100, L500.4050 ####[facility] [address] [place], [address] Absolute Neut 4.2 X10 3/uL Normal 2.0-7.7 [facility] Comment on above: Performed By: #### L 100.0100, L500.4050 ####[facility] [address] [place], [address] Basophils/100 WBC (Bld) 0.7 % Normal 0-1 [facility] Comment on above: Performed By: #### L 100.0100, L500.4050 ####[facility] [address] [place], [address] Eosinophils/100 WBC (Bld) 2.8 % Normal 0-5 [facility] Comment on above: Performed By: #### L 100.0100, L500.4050 ####[facility] [address] [place], [address] Erythrocyte distribution width (RBC) [Ratio] 15.9 % High 11.6-14.6 [facility] Comment on above: Performed By: #### L 100.0100, L500.4050 ####[facility] [address] [place], [address] Hematocrit (Bld) [Volume fraction] 39.1 % Low 40-54 [facility] Comment on above: Performed By: #### L 100.0100, L500.4050 ####[facility] [address] [place], [address] Hemoglobin (Bld) [Mass/Vol] 12.1 g/dL Low 13.0-16.5 [facility] Comment on above: Performed By: #### L 100.0100, L500.4050 ####[facility] [address] [place], [address] IG% 0.400 Normal 0.0-0.9 [facility] Comment on above: Result Comment: IG% - Immature Granulocytes (promyelocytes, myelocytes andmetamyelocytes) > 1% indicates that a LEFT SHIFT is Present. Performed By: #### L 100.0100, L500.4050 ####[facility] [address] [place], [address] Lymphocytes/100 WBC (Bld) 9.9 % Low 19-41 [facility] Comment on above: Performed By: #### L 100.0100, L500.4050 ####[facility] [address] [place], [address] MCH (RBC) [Entitic mass] 27.9 pg Normal 27.0-32.0 [facility] Comment on above: Performed By: #### L 100.0100, L500.4050 ####[facility] [address] [place], [address] MCHC (RBC) [Mass/Vol] 30.9 g/dL Low 32-36 [facility] Comment on above: Performed By: #### L 100.0100, L500.4050 ####[facility] [address] [place], [address] MCV (RBC) [Entitic vol] 90.1 fL Normal 80-94 [facility] Comment on above: Performed By: #### L 100.0100, L500.4050 ####[facility] [address] [place], [address] Monocytes/100 WBC (Bld) 9.7 % Normal 0-10 [facility] Comment on above: Performed By: #### L 100.0100, L500.4050 ####[facility] [address] [place], [address] Neutrophils/100 WBC (Bld) 76.5 % High 47-70 [facility] Comment on above: Performed By: #### L 100.0100, L500.4050 ####[facility] [address] [place], [address] Nucleated RBC (Bld) [#/Vol] 0 10*3/uL Normal 0-5 [facility] Comment on above: Performed By: #### L 100.0100, L500.4050 ####[facility] [address] [place], [address] Platelet mean volume (Bld) [Entitic vol] 10.3 fL Normal 6.2-12.0 [facility] Comment on above: Performed By: #### L 100.0100, L500.4050 ####[facility] [address] [place], [address] Platelets (Bld) [#/Vol] 168 10*3/uL Normal 150-450 [facility] Comment on above: Performed By: #### L 100.0100, L500.4050 ####[facility] [address] [place], [address] RBC (Bld) [#/Vol] 4.34 10*6/uL Low 4.6-6.2 [facility] Comment on above: Performed By: #### L 100.0100, L500.4050 ####[facility] [address] [place], [address] RDW SD 53.3 fl High 35.1-43.9 [facility] Comment on above: Performed By: #### L 100.0100, L500.4050 ####[facility] [address] [place], [address] WBC (Bld) [#/Vol] 5.5 10*3/uL Normal 4.4-11.0 [facility] Comment on above: Performed By: #### L 100.0100, L500.4050 ####[facility] [address] [place], [address] Comprehensive Metabolic Prof [facility] 05-10-2024 Albumin [Mass/Vol] 3.1 g/dL Low 3.2-5.0 [facility] Comment on above: Performed By: #### L 100.0100, L500.4050 ####[facility] [address] [place], [address] Albumin/Globulin [Mass ratio] 1.0 {ratio} Normal 0.9-2.4 [facility] Comment on above: Performed By: #### L 100.0100, L500.4050 ####[facility] [address] [place], [address] ALK P 67 U/L Normal 45-117 [facility] Comment on above: Performed By: #### L 100.0100, L500.4050 ####[facility] [address] [place], [address] ALT [Catalytic activity/Vol] 15 U/L Low 16-61 [facility] Comment on above: Performed By: #### L 100.0100, L500.4050 ####[facility] [address] [place], [address] AST [Catalytic activity/Vol] 11 U/L Low 15-37 [facility] Comment on above: Performed By: #### L 100.0100, L500.4050 ####[facility] [address] [place], [address] Bilirubin [Mass/Vol] 0.20 mg/dL Normal 0.20-1.00 [facility] Comment on above: Result Comment: For patients on eltrombopag therapy, use of Dimension Earle TBIL is not recommended. Performed By: #### L 100.0100, L500.4050 ####[facility] [address] [place], [address] BUN/CRE 20.7 RATIO High 10-20 [facility] Comment on above: Performed By: #### L 100.0100, L500.4050 ####[facility] [address] [place], [address] CA,Total 9.1 mg/dL Normal 8.5-10.1 [facility] Comment on above: Performed By: #### L 100.0100, L500.4050 ####[facility] [address] [place], [address] Chloride [Moles/Vol] 104 mmol/L Normal 98-107 [facility] Comment on above: Performed By: #### L 100.0100, L500.4050 ####[facility] [address] [place], [address] CO2 [Moles/Vol] 32.0 mmol/L Normal 21.0-32.0 [facility] Comment on above: Performed By: #### L 100.0100, L500.4050 ####[facility] [address] [place], [address] Creatinine [Mass/Vol] 0.96 mg/dL Normal 0.70-1.30 [facility] Comment on above: Result Comment: The validity of the calculated GFR GFRAA in patients over70 years has not been determined. Clinical correlation isessential. Performed By: #### L 100.0100, L500.4050 ####[facility] [address] [place], [address] ECRCL 74.74 ml/min Normal [facility] Comment on above: Performed By: #### L 100.0100, L500.4050 ####[facility] [address] [place], [address] EST GFR - AA 100 mL/min Normal >60 [facility] Comment on above: Result Comment: Afri can [place] GFR Calc Performed By: #### L 100.0100, L500.4050 ####[facility] [address] [place], [address] GAP 4 Low 5-15 [facility] Comment on above: Performed By: #### L 100.0100, L500.4050 ####[facility] [address] [place], [address] GFR/1.73 sq M.predicted among non-blacks MDRD (S/P/Bld) [Vol rate/Area] 83 mL/min/{1.73_m2} Normal >60 [facility] Comment on above: Result Comment: Non- GFR Calc Performed By: #### L 100.0100, L500.4050 ####[facility] [address] [place], [address] Globulin (S) [Mass/Vol] 3.1 g/dL Normal 2.2-4.2 [facility] Comment on above: Performed By: #### L 100.0100, L500.4050 ####[facility] [address] [place], [address] Glucose [Mass/Vol] 132 mg/dL High 74-106 [facility] Comment on above: Result Comment: Fast ing Glucose result greater than or equal to 126 mg/dLsuggests DIABETES MELLITUS per A.D.A. criteria. Performed By: #### L 100.0100, L500.4050 ####[facility] [address] [place], [address] Potassium [Moles/Vol] 4.0 mmol/L Normal 3.5-5.1 [facility] Comment on above: Performed By: #### L 100.0100, L500.4050 ####[facility] [address] [place], [address] Sodium [Moles/Vol] 140 mmol/L Normal 136-145 [facility] Comment on above: Performed By: #### L 100.0100, L500.4050 ####[facility] [address] [place], [address] T PROT 6.2 g/dL Low 6.4-8.2 [facility] Comment on above: Performed By: #### L 100.0100, L500.4050 ####[facility] [address] [place], [address] Urea nitrogen [Mass/Vol] 20 mg/dL High 7-18 [facility] Comment on above: Performed By: #### L 100.0100, L500.4050 ####[facility] [address] [place], [address] Oncology Visit Reporton 04-27 Oncology Visit Report Normal [facility] PATINSon 05-08-2024 PATINS Follow-up Appointmen ts with Dr. Munoz Return Appointment in 1 week. Call [place] wound [facility] at [phone], [facility] at [phone], or [facility] at [phone]. Follow nutritious diet including, increasing protein to 100 grams a day Avoid pressure, friction, shearing to wound area. Wound Care Instructions; Upper back Dressing change to consist of: (Weekly at Wound Center) - Remove old dressing and discard per policy. - Cleanse with normal saline., pat dry - Apply skin prep to ritika-wound. - Apply dressing from NPWT kit, apply blue foam to wound bed. - Set cycle on NPWT pump to suction - Set pressure on NPWT pump (Using large canister) - Change dressing weekly shower or tub bath. Directions for Mcfp: If wound loses suction: Remove snap back and apply wet to dry dressing until your next appointment. Signs and symptoms of wound infection: - fever - flu-like symptoms - pus or unusual drainage - foul odor - worsening of wound - spreading redness or warmth around the wound - increased pain - increasing and/or uncontrolled blood sugar for diabetics Please call the wound center at [phone] if you are experiencing this. If we are closed and you are unable to reach us in person please go to the ER. [facility] 05-03-2024 [facility] Follow-up Appointments: On Tuesday 05/08 with LOCK TENDER to change SNAP then follow up with Dr. Munoz the following week. Call [place] wound center at [phone], [facility] at [phone], or [facility] center at [phone]. Follow nutritious diet including, increasing protein to 100 grams a day Avoid pressure, friction, shearing to wound area. Wound Care Instructions; Upper back Dressing change to consist of: (Weekly at Wound Center) - Remove old dressing and discard per policy. - Cleanse with normal saline., pat dry - Apply skin prep to ritika-wound. - Apply dressing from NPWT kit, apply blue foam to wound bed. - Set cycle on NPWT pump to Continuous. - Set pressure on NPWT pump - Change dressing weekly shower or tub bath. Directions for Mcfp: If wound loses suction: Remove snap back and apply wet to dry dressing until your next appointment. Signs and symptoms of wound infection: - fever - flu-like symptoms - pus or unusual drainage - foul odor - worsening of wound - spreading redness or warmth around the wound - increased pain - increasing and/or uncontrolled blood sugar for diabetics Please call the wound center at [phone] if you are experiencing this. If we are closed and you are unable to reach us in person please go to the ER. [facility] 04-26-2024 PATI Follow-up Appointments: [address] Munoz Return Appointment in 1 week. Call [place] wound center at [phone], [facility] at [phone], or [facility] center at [phone]. Follow nutritious diet including, increasing protein to 100 grams a day Avoid pressure, friction, shearing to wound area. Wound Care Instructions; Upper back Dressing change to consist of: (Weekly at Wound Center) - Remove old dressing and discard per policy. - Cleanse with normal saline., pat dry - Apply skin prep to ritika-wound. - Apply dressing from NPWT kit, apply blue foam to wound bed. - Set cycle on NPWT pump to Continuous. - Set pressure on NPWT pump - Change dressing weekly shower or tub bath. Directions for Mcfp: If wound loses suction: Remove snap back and apply wet to dry dressing until your next appointment. Signs and symptoms of wound infection: - fever - flu-like symptoms - pus or unusual drainage - foul odor - worsening of wound - spreading redness or warmth around the wound - increased pain - increasing and/or uncontrolled blood sugar for diabetics Please call the wound center at [phone] if you are experiencing this. If we are closed and you are unable to reach us in person please go to the ER. [facility] 04-19-2024 PATI Follow-up Appointments: [address] Munoz Return Appointment in 1 week. Call [place] [facility] at [phone], [facility] at [phone], or [facility] center at [phone]. Follow nutritious diet including, increasing protein to 100 grams a day Avoid pressure, friction, shearing to wound area. Wound Care Instructions; Upper back Change the wound vac once a week Skilled nurse to perform dressing change to wound. Dressing change to consist of: - Remove old dressing and discard per policy. - Cleanse with normal saline., pat dry - Apply skin prep to ritika-wound. - Apply dressing from NPWT kit, apply blue foam to wound bed. - Set cycle on NPWT pump to Continuous. - Set pressure on NPWT pump - Change dressing weekly shower or tub bath. If wound loses suction: Remove snap back and apply wet to dry dressing until your next appointment. Signs and symptoms of wound infection: - fever - flu-like symptoms - pus or unusual drainage - foul odor - worsening of wound - spreading redness or warmth around the wound - increased pain - increasing and/or uncontrolled blood sugar for diabetics Please call the wound center at [phone] if you are experiencing this. If we are closed and you are unable to reach us in person please go to the ER. [facility] ELINA + Protein Elect, Serumon 04-17-2024 Albumin [Mass/Vol] 3.2 g/dL Normal 2.9-4.4 [facility] Comment on above: Order Comment: PLEAS E ADD TO EXTRA DRAWN TODAY. THANK YOU!!N Performed By: #### L 3100.3425, L3130.0010 ####[facility] [address] [facility] [address] Albumin/Globulin [Mass ratio] 1.3 {ratio} Normal 0.7-1.7 [facility] Comment on above: Order Comment: PLEAS E ADD TO EXTRA DRAWN TODAY. THANK YOU!!N Performed By: #### L 3100.3425, L3130.0010 ####[facility] [address] [facility] [address] PDGWU-5-GFMT 0.2 g/dL Normal 0.0-0.4 [facility] Comment on above: Order Comment: PLEAS E ADD TO EXTRA DRAWN TODAY. THANK YOU!!N Performed By: #### L 3100.3425, L3130.0010 ####[facility] [address] [facility] [address] VYQTB-7-PNJM 1.0 g/dL Normal 0.4-1.0 [facility] Comment on above: Order Comment: PLEAS E ADD TO EXTRA DRAWN TODAY. THANK YOU!!N Performed By: #### L 3100.3425, L3130.0010 ####[facility] [address] [place], [address] BETA GLOBULIN 0.8 g/dL Normal 0.7-1.3 [facility] Comment on above: Order Comment: PLEAS E ADD TO EXTRA DRAWN TODAY. THANK YOU!!N Performed By: #### L 3100.3425, L3130.0010 ####[facility] [address] [place], [address] GAMMA GLOBULIN 0.5 g/dL Normal 0.4-1.8 [facility] Comment on above: Order Comment: PLEAS E ADD TO EXTRA DRAWN TODAY. THANK YOU!!N Performed By: #### L 3100.3425, L3130.0010 ####[facility] [address] [place], [address] Globulin (S) [Mass/Vol] 2.5 g/dL Normal 2.2-3.9 [facility] Comment on above: Order Comment: PLEAS E ADD TO EXTRA DRAWN TODAY. THANK YOU!!N Performed By: #### L 3100.3425, L3130.0010 ####[facility] [address] [place], [address] ELINA RESULT,S Comment: Normal . [facility] Comment on above: Order Comment: PLEAS E ADD TO EXTRA DRAWN TODAY. THANK YOU!!N Result Comment: Pres ence of monoclonal protein is unclear at this time. Suggestrepeat in 3 to 6 months if clinically indicated. Performed By: #### L 3100.3425, L3130.0010 ####[facility] [address] [place], [address] IMMUNOGLOB A QN 68 mg/dL Normal 61-437 [facility] Comment on above: Order Comment: PLEAS E ADD TO EXTRA DRAWN TODAY. THANK YOU!!N Performed By: #### L 3100.3425, L3130.0010 ####[facility] [address] [place], [address] IMMUNOGLOB G QN 644 mg/dL Normal 603-1613 [facility] Comment on above: Order Comment: PLEAS E ADD TO EXTRA DRAWN TODAY. THANK YOU!!N Performed By: #### L 3100.3425, L3130.0010 ####[facility] [address] [place], [address] IMMUNOGLOB M QN 10 mg/dL Low 20-172 [facility] Comment on above: Order Comment: PLEAS E ADD TO EXTRA DRAWN TODAY. THANK YOU!!N Result Comment: Resu lt confirmed on concentration. Performed By: #### L 3100.3425, L3130.0010 ####[facility] [address] [place], [address] M-Raúl Comment: Normal Not Observed [facility] Comment on above: Order Comment: PLEAS E ADD TO EXTRA DRAWN TODAY. THANK YOU!!N Result Comment: ASYM METRICAL GAMMA Performed By: #### L 3100.3425, L3130.0010 ####[facility] [address] [place], [address] NOTE: Comment Normal . [facility] Comment on above: Order Comment: PLEAS E ADD TO EXTRA DRAWN TODAY. THANK YOU!!N Result Comment: Prot ein electrophoresis scan will follow via computer,mail, or lean leader delivery. Performed By: #### L 3100.3425, L3130.0010 ####[facility] [address] [place], [address] Protein [Mass/Vol] 5.7 g/dL Low 6.0-8.5 [facility] Comment on above: Order Comment: PLEAS E ADD TO EXTRA DRAWN TODAY. THANK YOU!!N Performed By: #### L 3100.3425, L3130.0010 ####[facility] [address] [place], [address] [facility] 04-17-2024 FR KAPPA LT CHN 11.9 mg/L Normal 3.3-19.4 [facility] Comment on above: Order Comment: PLEAS E ADD TO EXTRA DRAWN TODAY. THANK YOU!!N Performed By: #### L 3100.3425, L3130.0010 ####[facility] [address] [place], [address] FR LAMBDA LT CH 8.5 mg/L Normal 5.7-26.3 [facility] Comment on above: Order Comment: PLEAS E ADD TO EXTRA DRAWN TODAY. THANK YOU!!N Performed By: #### L 3100.3425, L3130.0010 ####[facility] [address] [place], [address] KAPPA/LAMBDA % 1.40 Normal 0.26-1.65 [facility] Comment on above: Order Comment: PLEAS E ADD TO EXTRA DRAWN TODAY. THANK YOU!!N Result Comment: Perf ormed at: - [facility] [address] Director: Micky Arreola PhD, Phone: [phone] Performed By: #### L 3100.3425, L3130.0010 ####[facility] [address] [place], [address] CBC W/Diff, Automatedon 03-27 Absolute Lymph 0.49 X10 3/uL Low 0.83-4.51 [facility] Comment on above: Performed By: #### L 500.4050, L100.0100 ####[facility] [address] [place], [address] Absolute Neut 2.0 X10 3/uL Normal 2.0-7.7 [facility] Comment on above: Performed By: #### L 500.4050, L100.0100 ####[facility] [address] [place], [address] Basophils/100 WBC (Bld) 2.1 % High 0-1 [facility] Comment on above: Performed By: #### L 500.4050, L100.0100 ####[facility] [address] [place], [address] Eosinophils/100 WBC (Bld) 3.4 % Normal 0-5 [facility] Comment on above: Performed By: #### L 500.4050, L100.0100 ####[facility] [address] [place], [address] Erythrocyte distribution width (RBC) [Ratio] 15.5 % High 11.6-14.6 [facility] Comment on above: Performed By: #### L 500.4050, L100.0100 ####[facility] [address] [place], [address] Hematocrit (Bld) [Volume fraction] 37.8 % Low 40-54 [facility] Comment on above: Performed By: #### L 500.4050, L100.0100 ####[facility] [address] [place], [address] Hemoglobin (Bld) [Mass/Vol] 12.2 g/dL Low 13.0-16.5 [facility] Comment on above: Performed By: #### L 500.4050, L100.0100 ####[facility] [address] [place], [address] IG% 0.000 Normal 0.0-0.9 [facility] Comment on above: Result Comment: IG% - Immature Granulocytes (promyelocytes, myelocytes andmetamyelocytes) > 1% indicates that a LEFT SHIFT is Present. Performed By: #### L 500.4050, L100.0100 ####[facility] [address] [place], [address] Lymphocytes/100 WBC (Bld) 15.0 % Low 19-41 [facility] Comment on above: Performed By: #### L 500.4050, L100.0100 ####[facility] [address] [place], [address] MCH (RBC) [Entitic mass] 28.6 pg Normal 27.0-32.0 [facility] Comment on above: Performed By: #### L 500.4050, L100.0100 ####[facility] [address] [place], [address] MCHC (RBC) [Mass/Vol] 32.3 g/dL Normal 32-36 [facility] Comment on above: Performed By: #### L 500.4050, L100.0100 ####[facility] [address] [place], [address] MCV (RBC) [Entitic vol] 88.7 fL Normal 80-94 [facility] Comment on above: Performed By: #### L 500.4050, L100.0100 ####[facility] [address] [place], [address] Monocytes/100 WBC (Bld) 18.0 % High 0-10 [facility] Comment on above: Performed By: #### L 500.4050, L100.0100 ####[facility] [address] [place], [address] Neutrophils/100 WBC (Bld) 61.5 % Normal 47-70 [facility] Comment on above: Performed By: #### L 500.4050, L100.0100 ####[facility] [address] [place], [address] Nucleated RBC (Bld) [#/Vol] 0 10*3/uL Normal 0-5 [facility] Comment on above: Performed By: #### L 500.4050, L100.0100 ####[facility] [address] [place], [address] Platelet mean volume (Bld) [Entitic vol] 10.2 fL Normal 6.2-12.0 [facility] Comment on above: Performed By: #### L 500.4050, L100.0100 ####[facility] [address] [place], [address] Platelets (Bld) [#/Vol] 186 10*3/uL Normal 150-450 [facility] Comment on above: Performed By: #### L 500.4050, L100.0100 ####[facility] [address] [place], [address] RBC (Bld) [#/Vol] 4.26 10*6/uL Low 4.6-6.2 [facility] Comment on above: Performed By: #### L 500.4050, L100.0100 ####[facility] [address] [place], [address] RDW SD 50.0 fl High 35.1-43.9 [facility] Comment on above: Performed By: #### L 500.4050, L100.0100 ####[facility] [address] [place], [address] WBC (Bld) [#/Vol] 3.3 10*3/uL Low 4.4-11.0 [facility] Comment on above: Performed By: #### L 500.4050, L100.0100 ####[facility] [address] [place], [address] Comprehensive Metabolic Prof [facility] 04-12-2024 Albumin [Mass/Vol] 2.9 g/dL Low 3.2-5.0 [facility] Comment on above: Performed By: #### L 500.4050, L100.0100 ####[facility] [address] [place], [address] Albumin/Globulin [Mass ratio] 0.9 {ratio} Normal 0.9-2.4 [facility] Comment on above: Performed By: #### L 500.4050, L100.0100 ####[facility] [address] [place], [address] ALK P 54 U/L Normal 45-117 [facility] Comment on above: Performed By: #### L 500.4050, L100.0100 ####[facility] [address] [place], [address] ALT [Catalytic activity/Vol] 17 U/L Normal 16-61 [facility] Comment on above: Performed By: #### L 500.4050, L100.0100 ####[facility] [address] [place], [address] AST [Catalytic activity/Vol] 7 U/L Low 15-37 [facility] Comment on above: Performed By: #### L 500.4050, L100.0100 ####[facility] [address] [place], [address] Bilirubin [Mass/Vol] 0.30 mg/dL Normal 0.20-1.00 [facility] Comment on above: Result Comment: For patients on eltrombopag therapy, use of Dimension Earle TBIL is not recommended. Performed By: #### L 500.4050, L100.0100 ####[facility] [address] [place], [address] BUN/CRE 18.4 RATIO Normal 10-20 [facility] Comment on above: Performed By: #### L 500.4050, L100.0100 ####[facility] [address] [place], [address] CA,Total 9.1 mg/dL Normal 8.5-10.1 [facility] Comment on above: Performed By: #### L 500.4050, L100.0100 ####[facility] [address] [place], [address] Chloride [Moles/Vol] 104 mmol/L Normal 98-107 [facility] Comment on above: Performed By: #### L 500.4050, L100.0100 ####[facility] [address] [place], [address] CO2 [Moles/Vol] 29.0 mmol/L Normal 21.0-32.0 [facility] Comment on above: Performed By: #### L 500.4050, L100.0100 ####[facility] [address] [place], [address] Creatinine [Mass/Vol] 0.82 mg/dL Normal 0.70-1.30 [facility] Comment on above: Result Comment: The validity of the calculated GFR GFRAA in patients over70 years has not been determined. Clinical correlation isessential. Performed By: #### L 500.4050, L100.0100 ####[facility] [address] [place], [address] ECRCL 85.85 ml/min Normal [facility] Comment on above: Performed By: #### L 500.4050, L100.0100 ####[facility] [address] [place], [address] EST GFR - AA 121 mL/min Normal >60 [facility] Comment on above: Result Comment: Afri can Brune[place] GFR Calc Performed By: #### L 500.4050, L100.0100 ####[facility] [address] [place], [address] GAP 6 Normal 5-15 [facility] Comment on above: Performed By: #### L 500.4050, L100.0100 ####[facility] [address] [place], [address] GFR/1.73 sq M.predicted among non-blacks MDRD (S/P/Bld) [Vol rate/Area] 100 mL/min/{1.73_m2} Normal >60 [facility] Comment on above: Result Comment: Non- GFR Calc Performed By: #### L 500.4050, L100.0100 ####[facility] [address] [place], [address] Globulin (S) [Mass/Vol] 3.4 g/dL Normal 2.2-4.2 [facility] Comment on above: Performed By: #### L 500.4050, L100.0100 ####[facility] [address] [place], [address] Glucose [Mass/Vol] 93 mg/dL Normal 74-106 [facility] Comment on above: Performed By: #### L 500.4050, L100.0100 ####[facility] [address] [place], [address] Potassium [Moles/Vol] 4.1 mmol/L Normal 3.5-5.1 [facility] Comment on above: Performed By: #### L 500.4050, L100.0100 ####[facility] [address] [place], [address] Sodium [Moles/Vol] 139 mmol/L Normal 136-145 [facility] Comment on above: Performed By: #### L 500.4050, L100.0100 ####[facility] [address] [place], [address] T PROT 6.3 g/dL Low 6.4-8.2 [facility] Comment on above: Performed By: #### L 500.4050, L100.0100 ####[facility] [address] [place], [address] Urea nitrogen [Mass/Vol] 15 mg/dL Normal 7-18 [facility] Comment on above: Performed By: #### L 500.4050, L100.0100 ####[facility] [address] [place], [address] Oncology Visit Reporton 03-27 Oncology Visit Report Normal [facility] PATINSon 04-11-2024 PATINS Follow-up Appointments: Return Appointment 2 xs a week. Call [place] [facility] at [phone], [facility] at [phone], or [facility] center at [phone]. Follow nutritious diet including, increasing protein to 100 grams a day Avoid pressure, friction, shearing to wound area. Wound Care Instructions; Upper back Change the wound vac x2 times a week Skilled nurse to perform dressing change to wound. Dressing change to consist of: - Remove old dressing and discard per policy. - Cleanse with normal saline., pat dry - Apply skin prep to ritika-wound. - Apply dressing from NPWT kit, apply blue foam to wound bed. - Set cycle on NPWT pump to Continuous. - Set pressure on NPWT pump to 125 mmHg. - Change dressing 2x weekly.o shower or tub bath. If wound loses suction: Remove snap back and apply wet to dry dressing until your next appointment. Signs and symptoms of wound infection: - fever - flu-like symptoms - pus or unusual drainage - foul odor - worsening of wound - spreading redness or warmth around the wound - increased pain - increasing and/or uncontrolled blood sugar for diabetics Please call the wound center at [phone] if you are experiencing this. If we are closed and you are unable to reach us in person please go to the ER. [facility] PATINSon 04-05-2024 PATINS Follow-up Appointments: Return Appointment 2 xs a week. Call [place] [facility] at [phone], [facility] at [phone], or [facility] center at [phone]. Follow nutritious diet including, increasing protein to 100 grams a day Avoid pressure, friction, shearing to wound area. Wound Care Instructions; Upper back Change the wound vac 1-2 times a week Skilled nurse to perform dressing change to wound. Dressing change to consist of: - Remove old dressing and discard per policy. - Cleanse with normal saline. - Rinse with saline. - Dry with sponge or gauze pad. - Apply skin prep to ritika-wound. - Apply dressing from NPWT kit to wound. - Set cycle on NPWT pump to Continuous. - Set pressure on NPWT pump to 125 mmHg. - Change dressing 2x weekly.o shower or tub bath. Signs and symptoms of wound infection: - fever - flu-like symptoms - pus or unusual drainage - foul odor - worsening of wound - spreading redness or warmth around the wound - increased pain - increasing and/or uncontrolled blood sugar for diabetics Please call the wound center at [phone] if you are experiencing this. If we are closed and you are unable to reach us in person please go to the ER. [facility] Follow-up Appointments: Return Appointment in 1 week. Call [place] [facility] at [phone], [facility] at [phone], or [facility] center at [phone]. Follow nutritious diet including, increasing protein to 100 grams a day Avoid pressure, friction, shearing to wound area. Wound Care Instructions; Upper back Change the dressing daily Cleanse wound with mild soap and water and pat dry. Apply mesalt ribbon lightly packed into wound with distal wound tunneling at 12 o'clock at 1 cm. Apply dry dressing to cover the wound and secure with tape. Signs and symptoms of wound infection: - fever - flu-like symptoms - pus or unusual drainage - foul odor - worsening of wound - spreading redness or warmth around the wound - increased pain - increasing and/or uncontrolled blood sugar for diabetics Please call the wound center at [phone] if you are experiencing this. If we are closed and you are unable to reach us in person please go to the ER. Wound Center will apply for SNAP vac through insurance for approval If approved, it will begin at the next wound care appointment [facility] Follow-up Appointments: Return Appointment in 1 week. Call [place] [facility] at [phone], [facility] at [phone], or [facility] center at [phone]. Follow nutritious diet including, increasing protein to 100 grams a day Avoid pressure, friction, shearing to wound area. Wound Care Instructions; Upper back Cleanse wound with mild soap and water and pat dry. Apply mesalt ribbon lightly packed into wound with distal wound tunneling at 12 o'clock at 1.5 cm. Apply dry dressing to cover the wound and secure with tape. Signs and symptoms of wound infection: - fever - flu-like symptoms - pus or unusual drainage - foul odor - worsening of wound - spreading redness or warmth around the wound - increased pain - increasing and/or uncontrolled blood sugar for diabetics Please call the wound center at [phone] if you are experiencing this. If we are closed and you are unable to reach us in person please go to the ER. [facility] Progress Noteon 03-22-2024 Progress Note [facility] [address] [facility] [address] Loc: [phone] Wound Care Visit - New Patient Progress Note CHIEF COMPLAINT: Wound Care HISTORY OF PRESENT ILLNESS: The patient is a 68 y.o. male with history of multiple myeloma. Had spinal surgery in October 2022, states wound area has never been completely healed. Has apparently had radiation to this area as well. Currently has 2 small open areas. Some drainage. PAST MEDICAL HISTORY Past Medical History: Diagnosis Date Cancer (CMS/HCC) (HCC) Disease of thyroid gland PAST SURGICAL HISTORY Past Surgical History: Procedure Laterality Date BACK SURGERY N/A 10/2022 Medications reviewed Medical history reviewed Allergies reviewed Current Medications: Current Outpatient Medications: acetaminophen (Tylenol) 500 MG tablet, Take 1,000 mg by mouth every 6 hours as needed for mild pain (1-3)., Disp: , Rfl: acyclovir (Zovirax) 400 MG tablet, Take 400 mg by mouth 2 times daily., Disp: , Rfl: amLODIPine (Norvasc) 10 MG tablet, Take 10 mg by mouth daily., Disp: , Rfl: apixaban (Eliquis) 5 MG tablet, Take 5 mg by mouth 2 times daily., Disp: , Rfl: Ascorbic Acid (vitamin C) 1000 MG tablet, Take 1,000 mg by mouth in the morning and 1,000 mg in the evening., Disp: , Rfl: BACLOFEN PO, Take 5 mg by mouth in the morning and 5 mg in the evening., Disp: , Rfl: benzonatate (Tessalon) 100 MG capsule, Take 100 mg by mouth 3 times daily as needed for cough. Do not crush or chew., Disp: , Rfl: bisacodyl (Dulcolax) 10 MG suppository, Insert into the rectum Daily as needed for constipation., Disp: , Rfl: Calcium Carbonate (CALCIUM 600 PO), Take 600 mg by mouth in the morning and 600 mg in the evening., Disp: , Rfl: cholecalciferol (Vitamin D-3) 125 MCG (5000 UT) capsule, Take 5,000 Units by mouth daily., Disp: , Rfl: dexAMETHasone (Decadron) 4 MG tablet, Take 4 mg by mouth every 28 (twenty-eight) days., Disp: , Rfl: diphenhydrAMINE HCl (BENADRYL ALLERGY PO), Take by mouth., Disp: , Rfl: ferrous sulfate 325 (65 Fe) MG tablet, Take 325 mg by mouth daily (with breakfast)., Disp: , Rfl: gabapentin (Neurontin) 100 MG capsule, Take 100 mg by mouth 3 times daily., Disp: , Rfl: guaiFENesin (Robitussin) 100 MG/5ML syrup, Take 200 mg by mouth in the morning and 200 mg at noon and 200 mg in the evening and 200 mg before bedtime., Disp: , Rfl: ibuprofen 400 MG tablet, Take 400 mg by mouth every 8 hours as needed for moderate pain (4-6)., Disp: , Rfl: levothyroxine (Synthroid, Levoxyl) 100 MCG tablet, Take 100 mcg by mouth every morning (before breakfast)., Disp: , Rfl: magnesium 250 MG tablet, Take by mouth daily., Disp: , Rfl: magnesium hydroxide (Milk of Magnesia) 400 MG/5ML suspension, Take 30 mL by mouth Nightly., Disp: , Rfl: MELATONIN PO, Take by mouth., Disp: , Rfl: metoprolol tartrate (Lopressor) 50 MG tablet, Take 50 mg by mouth 2 times daily., Disp: , Rfl: Nutritional Supplements (ARIEL PO), Take by mouth., Disp: , Rfl: omeprazole OTC (PriLOSEC OTC) 20 MG EC tablet, Take 20 mg by mouth every morning (before breakfast). Do not crush, chew, or split., Disp: , Rfl: polyethylene glycol, PEG, 3350 (Miralax) 17 g packet, Take by mouth., Disp: , Rfl: sennosides (Senokot) 8.6 MG tablet, Take 1 tablet by mouth 2 times daily., Disp: , Rfl: simethicone (Mylicon) 80 MG chewable tablet, Chew 80 mg in the morning and 80 mg at noon and 80 mg before bedtime., Disp: , Rfl: REVIEW OF SYSTEMS: Review of Systems Constitutional: Negative. Negative for chills, fatigue and fever. See HPI Respiratory: Negative. Cardiovascular: Negative. Skin: Positive for wound. Negative for color change (from typical for patient) and rash. PHYSICAL EXAM: BP 93/57 Pulse (!) 48 Temp 37 ?C (98.6 ?F) Resp 18 Ht 5' 5 (1.651 m) Wt 174 lb (78.9 kg) BMI 28.96 kg/m? Physical Exam Vitals reviewed. Constitutional: General: He is not in acute distress. Appearance: Normal appearance. He is not ill-appearing or toxic-appearing. HENT: Ears: Comments: Hearing to conversational voice is normal. Pulmonary: Effort: Pulmonary effort is normal. Breath sounds: No wheezing (No audible wheeze). Skin: General: Skin is warm. Comments: Proximal wound has 1.5 cm straight in depth. Some slough, cleared with cotton tip swab. Minimal drainage. No tunnel or undermine identified. Distal wound is shallow, but has 2 cm tunnel at 12 o'clock. No undermining identified Neither wound appears cellulitic. See photos and measurements. Neurological: Mental Status: He is alert and oriented to person, place, and time. Psychiatric: Thought Content: Thought content normal. Wound/Incision 03/22/24 Surgical Neck Upper;Midline;Posterio r (Active) Wound Image 03/22/24 1041 Site Assessment [place];Pale;Sloughing 03/22/24 1041 Ritika-Wound Assessment [place];Scarred 03/22/24 1041 Wound Length (cm) 7.9 (more content not included)... Normal [facility] CBC W/Diff, Automatedon 06- Absolute Lymph 0.30 X10 3/uL Low 0.83-4.51 [facility] Comment on above: Performed By: #### L 100.0100, L500.4050 ####[facility] [address] [place], [address] Absolute Neut 3.2 X10 3/uL Normal 2.0-7.7 [facility] Comment on above: Performed By: #### L 100.0100, L500.4050 ####[facility] [address] [place], [address] Basophils/100 WBC (Bld) 1.2 % High 0-1 [facility] Comment on above: Performed By: #### L 100.0100, L500.4050 ####[facility] [address] [place], [address] Eosinophils/100 WBC (Bld) 2.4 % Normal 0-5 [facility] Comment on above: Performed By: #### L 100.0100, L500.4050 ####[facility] [address] [place], [address] Erythrocyte distribution width (RBC) [Ratio] 15.4 % High 11.6-14.6 [facility] Comment on above: Performed By: #### L 100.0100, L500.4050 ####[facility] [address] [place], [address] Hematocrit (Bld) [Volume fraction] 39.6 % Low 40-54 [facility] Comment on above: Performed By: #### L 100.0100, L500.4050 ####[facility] [address] [place], [address] Hemoglobin (Bld) [Mass/Vol] 12.7 g/dL Low 13.0-16.5 [facility] Comment on above: Performed By: #### L 100.0100, L500.4050 ####[facility] [address] [place], [address] IG% 0.700 Normal 0.0-0.9 [facility] Comment on above: Result Comment: IG% - Immature Granulocytes (promyelocytes, myelocytes andmetamyelocytes) > 1% indicates that a LEFT SHIFT is Present. Performed By: #### L 100.0100, L500.4050 ####[facility] [address] [place], [address] Lymphocytes/100 WBC (Bld) 7.3 % Low 19-41 [facility] Comment on above: Performed By: #### L 100.0100, L500.4050 ####[facility] [address] [place], [address] MCH (RBC) [Entitic mass] 28.5 pg Normal 27.0-32.0 [facility] Comment on above: Performed By: #### L 100.0100, L500.4050 ####[facility] [address] [place], [address] MCHC (RBC) [Mass/Vol] 32.1 g/dL Normal 32-36 [facility] Comment on above: Performed By: #### L 100.0100, L500.4050 ####[facility] [address] [place], [address] MCV (RBC) [Entitic vol] 89.0 fL Normal 80-94 [facility] Comment on above: Performed By: #### L 100.0100, L500.4050 ####[facility] [address] [place], [address] Monocytes/100 WBC (Bld) 9.9 % Normal 0-10 [facility] Comment on above: Performed By: #### L 100.0100, L500.4050 ####[facility] [address] [place], [address] Neutrophils/100 WBC (Bld) 78.5 % High 47-70 [facility] Comment on above: Performed By: #### L 100.0100, L500.4050 ####[facility] [address] [place], [address] Nucleated RBC (Bld) [#/Vol] 0 10*3/uL Normal 0-5 [facility] Comment on above: Performed By: #### L 100.0100, L500.4050 ####[facility] [address] [place], [address] Platelet mean volume (Bld) [Entitic vol] 9.9 fL Normal 6.2-12.0 [facility] Comment on above: Performed By: #### L 100.0100, L500.4050 ####[facility] [address] [place], [address] Platelets (Bld) [#/Vol] 157 10*3/uL Normal 150-450 [facility] Comment on above: Performed By: #### L 100.0100, L500.4050 ####[facility] [address] [place], [address] RBC (Bld) [#/Vol] 4.45 10*6/uL Low 4.6-6.2 [facility] Comment on above: Performed By: #### L 100.0100, L500.4050 ####[facility] [address] [place], [address] RDW SD 50.8 fl High 35.1-43.9 [facility] Comment on above: Performed By: #### L 100.0100, L500.4050 ####[facility] [address] [place], [address] WBC (Bld) [#/Vol] 4.1 10*3/uL Low 4.4-11.0 [facility] Comment on above: Performed By: #### L 100.0100, L500.4050 ####[facility] [address] [place], [address] Comprehensive Metabolic Prof ilon 03-15-2024 Albumin [Mass/Vol] 3.1 g/dL Low 3.2-5.0 [facility] Comment on above: Performed By: #### L 100.0100, L500.4050 ####[facility] [address] [place], [address] Albumin/Globulin [Mass ratio] 1.0 {ratio} Normal 0.9-2.4 [facility] Comment on above: Performed By: #### L 100.0100, L500.4050 ####[facility] [address] [place], [address] ALK P 62 U/L Normal 45-117 [facility] Comment on above: Performed By: #### L 100.0100, L500.4050 ####[facility] [address] [place], [address] ALT [Catalytic activity/Vol] 17 U/L Normal 16-61 [facility] Comment on above: Performed By: #### L 100.0100, L500.4050 ####[facility] [address] [place], [address] AST [Catalytic activity/Vol] 13 U/L Low 15-37 [facility] Comment on above: Performed By: #### L 100.0100, L500.4050 ####[facility] [address] [place], [address] Bilirubin [Mass/Vol] 0.30 mg/dL Normal 0.20-1.00 [facility] Comment on above: Result Comment: For patients on eltrombopag therapy, use of Dimension Earle TBIL is not recommended. Performed By: #### L 100.0100, L500.4050 ####[facility] [address] [place], [address] BUN/CRE 26.9 RATIO High 10-20 [facility] Comment on above: Performed By: #### L 100.0100, L500.4050 ####[facility] [address] [place], [address] CA,Total 9.2 mg/dL Normal 8.5-10.1 [facility] Comment on above: Performed By: #### L 100.0100, L500.4050 ####[facility] [address] [place], [address] Chloride [Moles/Vol] 103 mmol/L Normal 98-107 [facility] Comment on above: Performed By: #### L 100.0100, L500.4050 ####[facility] [address] [place], [address] CO2 [Moles/Vol] 31.0 mmol/L Normal 21.0-32.0 [facility] Comment on above: Performed By: #### L 100.0100, L500.4050 ####[facility] [address] [place], [address] Creatinine [Mass/Vol] 0.78 mg/dL Normal 0.70-1.30 [facility] Comment on above: Result Comment: The validity of the calculated GFR GFRAA in patients over70 years has not been determined. Clinical correlation isessential. Performed By: #### L 100.0100, L500.4050 ####[facility] [address] [place], [address] ECRCL 88.91 ml/min Normal [facility] Comment on above: Performed By: #### L 100.0100, L500.4050 ####[facility] [address] [place], [address] EST GFR - AA 127 mL/min Normal >60 [facility] Comment on above: Result Comment: Afri can [place]une[place] GFR Calc Performed By: #### L 100.0100, L500.4050 ####[facility] [address] [place], [address] GAP 3 Low 5-15 [facility] Comment on above: Performed By: #### L 100.0100, L500.4050 ####[facility] [address] [place], [address] GFR/1.73 sq M.predicted among non-blacks MDRD (S/P/Bld) [Vol rate/Area] 105 mL/min/{1.73_m2} Normal >60 [facility] Comment on above: Result Comment: Non- GFR Calc Performed By: #### L 100.0100, L500.4050 ####[facility] [address] [place], [address] Globulin (S) [Mass/Vol] 3.1 g/dL Normal 2.2-4.2 [facility] Comment on above: Performed By: #### L 100.0100, L500.4050 ####[facility] [address] [place], [address] Glucose [Mass/Vol] 108 mg/dL High 74-106 [facility] Comment on above: Result Comment: Fast ing Glucose result from 100 to 125 mg/dLsuggests IMPAIRED HOMEOSTASIS per A.D.A. criteria. Performed By: #### L 100.0100, L500.4050 ####[facility] [address] [place], [address] Potassium [Moles/Vol] 4.3 mmol/L Normal 3.5-5.1 [facility] Comment on above: Performed By: #### L 100.0100, L500.4050 ####[facility] [address] [place], [address] Sodium [Moles/Vol] 137 mmol/L Normal 136-145 [facility] Comment on above: Performed By: #### L 100.0100, L500.4050 ####[facility] [address] [place], [address] T PROT 6.2 g/dL Low 6.4-8.2 [facility] Comment on above: Performed By: #### L 100.0100, L500.4050 ####[facility] [address] [place], [address] Urea nitrogen [Mass/Vol] 21 mg/dL High 7-18 [facility] Comment on above: Performed By: #### L 100.0100, L500.4050 ####[facility] [address] [place], [address] Oncology Visit Reporton 02-25 Oncology Visit Report Normal [facility] CBC AND ELECTRONIC DIFFon Basophils (Bld) [#/Vol] K/uL 0.00 - 0.09 K/uL [facility] Basophils/100 WBC (Bld) 1.6 % [facility] Differential cell count method Nom (Bld) Electronic Differential [facility] Eosinophils (Bld) [#/Vol] 0.21 10*3/uL 0.00 - 0.48 K/uL [facility] Eosinophils/100 WBC (Bld) 10.9 % [facility] Erythrocyte distribution width (RBC) [Ratio] 16.1 % High 10.9 - 14.3 % [facility] Hematocrit (Bld) [Volume fraction] 40.3 % 39.6 - 48.8 % [facility] Hemoglobin (Bld) [Mass/Vol] 12.7 g/dL Low 13.4 - 16.8 g/dL [facility] Immature granulocytes (Bld) [#/Vol] K/uL NINF - 0.07 K/uL [facility] Immature granulocytes/100 WBC (Bld) 0.0 % [facility] Interpretation and review of laboratory results Abnormal [facility] Lymphocytes (Bld) [#/Vol] 0.32 10*3/uL Low 0.83 - 3.57 K/uL [facility] Lymphocytes/100 WBC (Bld) 16.6 % [facility] MCH (RBC) [Entitic mass] 27.9 pg 26. 1 - 33.3 pg [facility] MCHC (RBC) [Mass/Vol] 31.5 g/dL Low 31.9 - 36.5 g/dL [facility] MCV (RBC) [Entitic vol] 88.4 fL 79.0 - 94.5 fL [facility] Monocytes (Bld) [#/Vol] 0.33 10*3/uL 0.24 - 0.93 K/uL [facility] Monocytes/100 WBC (Bld) 17.1 % [facility] Neutrophils (Bld) [#/Vol] 1.04 10*3/uL Low 1.57 - 6.19 K/uL [facility] Nucleated RBC/100 WBC (Bld) [Ratio] 0.0 % [facility] Platelet mean volume (Bld) [Entitic vol] 11.8 fL 8.7 - 12.3 fL [facility] Platelets (Bld) [#/Vol] 115 10*3/uL Low 146 - 337 K/uL [facility] RBC (Bld) [#/Vol] 4.56 10*6/uL [facility] Segmented neutrophils/100 WBC (Bld) 53.8 % [facility] WBC (Bld) [#/Vol] 1.93 10*3/uL Low 3.73 - 10.10 K/uL [facility] Abs Baso Auto < Normal 0.00-0.09 [facility] Comment on above: Performed By: #### L [id number] #### [facility] (DEFAULT) [address] [place] [address] Basophils/100 WBC (Bld) 1.6 % Normal [facility] Comment on above: Performed By: #### L [id number] #### [facility] (DEFAULT) [address] [place] [address] DIFF STATUS Electronic Differential Normal [facility] Comment on above: Performed By: #### L [id number] #### [facility] (DEFAULT) [address] [place] [address] Eosinophils (Bld) [#/Vol] 0.21 10*3/uL Normal 0.00-0.48 [facility] Comment on above: Performed By: #### L [id number] #### [facility] (DEFAULT) [address] [place] [address] Eosinophils/100 WBC (Bld) 10.9 % Normal [facility] Comment on above: Performed By: #### L [id number] #### [facility] (DEFAULT) [address] [place] [address] Hematocrit (Bld) [Volume fraction] 40.3 % Normal 39.6-48.8 [facility] Comment on above: Performed By: #### L [id number] #### [facility] (DEFAULT) [address] [place] [address] Hemoglobin (Bld) [Mass/Vol] 12.7 g/dL Low 13.4-16.8 [facility] Comment on above: Performed By: #### L [id number] #### [facility] (DEFAULT) [address] [address] Immature Grans % 0.0 % Normal [facility] Comment on above: Performed By: #### L [id number] #### [facility] (DEFAULT) [address] [place] [address] Immature Grans Absolute < Normal <=0.07 [facility] Comment on above: Performed By: #### L [id number] #### [facility] (DEFAULT) [address] [place] [address] Lymphocytes (Bld) [#/Vol] 0.32 10*3/uL Low 0.83-3.57 [facility] Comment on above: Performed By: #### L [id number] #### [facility] (DEFAULT) [address] [place] [address] Lymphocytes/100 WBC (Bld) 16.6 % Normal [facility] Comment on above: Performed By: #### L [id number] #### [facility] (DEFAULT) [address] [place] [address] MCV (RBC) [Entitic vol] 88.4 fL Normal 79.0-94.5 [facility] Comment on above: Performed By: #### L [id number] #### [facility] (DEFAULT) [address] [place] [address] Mean Cell Hgb 27.9 pg Normal 26.1-33.3 [facility] Comment on above: Performed By: #### L [id number] #### [facility] (DEFAULT) [address] [place] [address]48[address] Mean Cell Hgb Conc 31.5 g/dL Low 31.9-36.5 [facility] Comment on above: Performed By: #### L [id number] #### [facility] (DEFAULT) [address] [place] [address] Monocytes (Bld) [#/Vol] 0.33 10*3/uL Normal 0.24-0.93 [facility] Comment on above: Performed By: #### L [id number] #### [facility] (DEFAULT) [address] [address] Monocytes/100 WBC (Bld) 17.1 % Normal [facility] Comment on above: Performed By: #### L [id number] #### [facility] (DEFAULT) [address] [place] [address] Nucleated RBC 0.0 /100 WBC Normal <=0.2 [facility] Comment on above: Performed By: #### L [id number] #### [facility] (DEFAULT) [address] [place] [address] Platelet mean volume (Bld) [Entitic vol] 11.8 fL Normal 8.7-12.3 [facility] Comment on above: Performed By: #### L [id number] #### [facility] (DEFAULT) [address] [place] [address] Platelets (Bld) [#/Vol] 115 10*3/uL Low 146-337 [facility] Comment on above: Performed By: #### L [id number] #### [facility] (DEFAULT) [address] [address] RBC (Bld) [#/Vol] 4.56 10*6/uL Normal 4.38-5.83 [facility] Comment on above: Performed By: #### L [id number] #### [facility] (DEFAULT) [address] [address] RBC Distribution 16.1 % High 10.9-14.3 [facility] Comment on above: Performed By: #### L [id number] #### [facility] (DEFAULT) [address] [place] [address] Segs + Bands Auto 53.8 % Normal [facility] Comment on above: Performed By: #### L [id number] #### [facility] (DEFAULT) [address] [address] Segs + Bands,Absolute Auto 1.04 K/uL Low 1.57-6.19 [facility] Comment on above: Performed By: #### L [id number] #### [facility] (DEFAULT) [address] [place] [address] WBC (Bld) [#/Vol] 1.93 10*3/uL Low 3.73-10.10 [facility] Comment on above: Performed By: #### L [id number] #### [facility] (DEFAULT) [address] METABOLIC PANE [facility] 03-08-2024 Albumin [Mass/Vol] 3.7 g/dL 3.5 - 5.0 g/dL [facility] ALP [Catalytic activity/Vol] 48 U/L 32 - 126 U/L [facility] ALT [Catalytic activity/Vol] 9 U/L Low 10 - 52 U/L [facility] Anion gap [Moles/Vol] 10 mmol/L 7 - 17 mmol/L [facility] AST [Catalytic activity/Vol] 12 U/L 10 - 39 U/L [facility] Bilirubin [Mass/Vol] 0.5 mg/dL NINF - 1.5 mg/dL [facility] Calcium [Mass/Vol] 8.8 mg/dL 8.6 - 10. 5 mg/dL [facility] Chloride [Moles/Vol] 102 mmol/L 98 - 10 8 mmol/L [facility] CO2 [Moles/Vol] 31 mmol/L 21 - 31 mmol/L [facility] Creatinine [Mass/Vol] 0.87 mg/dL 0.70 - 1.30 mg/dL [facility] eGFR, CKD-EPI, Male - PINF [facility] Comment on above: Reported eGFR is bas ed on the CKD-EPI 2020 equation using creatinine, age, and sex. Glucose [Mass/Vol] 90 mg/dL 70 - 99 mg/dL [facility] Interpretation and review of laboratory results Abnormal [facility] Osmolality Calc [Osmolality] 291 [facility] Potassium [Moles/Vol] 3.9 mmol/L 3.5 - 5.0 mmol/L [facility] Protein [Mass/Vol] 6.2 g/dL Low 6.4 - 8.3 g/dL [facility] Sodium [Moles/Vol] 139 mmol/L 135 - 145 mmol/L [facility] Urea nitrogen [Mass/Vol] 14 mg/dL 7 - 25 mg/dL [facility] Urea nitrogen/Creatinine [Mass ratio] 16 mg/mg [facility] Albumin [Mass/Vol] 3.7 g/dL Normal 3.5-5.0 [facility] Comment on above: Performed By: #### C MPN #### [facility] (DEFAULT) [address] [place] [address] ALP [Catalytic activity/Vol] 48 U/L Normal 32-126 [facility] Comment on above: Performed By: #### C MPN #### [facility] (DEFAULT) [address] [place] [address] ALT [Catalytic activity/Vol] 9 U/L Low 10-52 [facility] Comment on above: Performed By: #### C MPN #### [facility] (DEFAULT) [address] [place] [address] Anion gap [Moles/Vol] 10 mmol/L Normal 7-17 [facility] Comment on above: Performed By: #### C MPN #### [facility] (DEFAULT) [address] [place] [address] AST [Catalytic activity/Vol] 12 U/L Normal 10-39 [facility] Comment on above: Performed By: #### C MPN #### [facility] (DEFAULT) [address] [place] [address] Bilirubin [Mass/Vol] 0.5 mg/dL Normal <1.5 [facility] Comment on above: Performed By: #### C MPN #### [facility] (DEFAULT) [address] [place] [address] Calcium [Mass/Vol] 8.8 mg/dL Normal 8.6-10.5 [facility] Comment on above: Performed By: #### C MPN #### [facility] (DEFAULT) [address] [place] [address] Chloride [Moles/Vol] 102 mmol/L Normal 98-108 [facility] Comment on above: Performed By: #### C MPN #### [facility] (DEFAULT) [address] [address] CO2 [Moles/Vol] 31 mmol/L Normal 21-31 [facility] Comment on above: Performed By: #### C MPN #### [facility] (DEFAULT) [address] [address] Creatinine [Mass/Vol] 0.87 mg/dL Normal 0.70-1.30 [facility] Comment on above: Performed By: #### C MPN #### [facility] (DEFAULT) [address] [address] eGFR, CKD-EPI, Male > Normal >=60 [facility] Comment on above: Result Comment: Repo rted eGFR is based on the CKD-EPI 2020 equation using creatinine, age, and sex. Performed By: #### C MPN #### [facility] (DEFAULT) [address] [place] [address] Glucose [Mass/Vol] 90 mg/dL Normal 70-99 [facility] Comment on above: Performed By: #### C MPN #### [facility] (DEFAULT) [address] [address] Osmolality [Osmolality] 291 mosm/kg Normal 278-305 [facility] Comment on above: Performed By: #### C MPN #### [facility] (DEFAULT) [address] [address] Potassium [Moles/Vol] 3.9 mmol/L Normal 3.5-5.0 [facility] Comment on above: Performed By: #### C MPN #### [facility] (DEFAULT) [address] [address] Protein [Mass/Vol] 6.2 g/dL Low 6.4-8.3 [facility] Comment on above: Performed By: #### C MPN #### [facility] (DEFAULT) [address] [place] [address] Sodium [Moles/Vol] 139 mmol/L Normal 135-145 [facility] Comment on above: Performed By: #### C MPN #### [facility] (DEFAULT) [address] [place] [address] Urea nitrogen [Mass/Vol] 14 mg/dL Normal 7-25 [facility] Comment on above: Performed By: #### C MPN #### [facility] (DEFAULT) [address] [place] [address] Urea nitrogen/Creatinine [Mass ratio] 16 mg/mg Normal [facility] Comment on above: Performed By: #### C MPN #### [facility] (DEFAULT) [address] [place] [address] IMMUNOFIXATION SERUMon 03-08 Monoclonal 1 23.2 mg/dL High <=0.0 [facility] Comment on above: Performed By: #### L [id number] #### [facility] (DEFAULT) [address] [place] [address] REVIEWED BY: Nia Zhao, Normal [facility] Comment on above: Performed By: #### L [id number] #### [facility] (DEFAULT) [address] [place] [address] Serum Immunofixation Minute amount of Ig G kappa monoclonal protein is present. Normal [facility] Comment on above: Performed By: #### L [id number] #### [facility] (DEFAULT) [address] [place] [address] IMMUNOGLOBULIN FREE CHAINSOr dered By: Andreea Almanzar on 03-08-2024 Immunoglobulin light chains.kappa.free (S) [Mass/Vol] 17.0 mg/L 3.9 - 26.0 mg/L [facility] Immunoglobulin light chains.kappa.free/Immuno globulin light chains.lambda (S) [Mass ratio] 1.56 0.51 - 1.72 [facility] Immunoglobulin light chains.lambda.free [Mass/Vol] 10.9 mg/L 6.4 - 22.1 mg/L [facility] Interpretation and review of laboratory results Normal [facility] Undetected antigen excess is a rare event but cannot be excluded. If these free light chain results do not agree with other clinical or laboratory findings, or if the sample is from a patient that has previously demonstrated antigen excess, the result must be checked by retesting at a higher sample dilution. Results should always be interpreted in conjunction with other laboratory tests and clinical evidence; any anomalies should be discussed with the testing laboratory. [facility] IMMUNOGLOBULIN FREE CHAINSon 03-08-2024 [facility] Free Light Chains 17.0 mg/L Normal 3.9-26.0 [facility] Comment on above: Order Comment: Undet ected antigen excess is a rare event but cannot be excluded. If these free light chain results do not agree with other clinical or laboratory findings, or if the sample is from a patient that has previously demonstrated antigen excess, the result must be checked by retesting at a higher sample dilution. Results should always be interpreted in conjunction with other laboratory tests and clinical evidence; any anomalies should be discussed with the testing laboratory. Performed By: #### I FLC #### [facility] (DEFAULT) [address] [address] Cent[place]/Lambda Ratio 1.56 Normal 0.51-1.72 [facility] Comment on above: Order Comment: Undet ected antigen excess is a rare event but cannot be excluded. If these free light chain results do not agree with other clinical or laboratory findings, or if the sample is from a patient that has previously demonstrated antigen excess, the result must be checked by retesting at a higher sample dilution. Results should always be interpreted in conjunction with other laboratory tests and clinical evidence; any anomalies should be discussed with the testing laboratory. Performed By: #### I FLC #### [facility] (DEFAULT) [address] [place] [address] Lambda Free Light Chains 10.9 mg/L Normal 6.4-22.1 [facility] Comment on above: Order Comment: Undet ected antigen excess is a rare event but cannot be excluded. If these free light chain results do not agree with other clinical or laboratory findings, or if the sample is from a patient that has previously demonstrated antigen excess, the result must be checked by retesting at a higher sample dilution. Results should always be interpreted in conjunction with other laboratory tests and clinical evidence; any anomalies should be discussed with the testing laboratory. Performed By: #### I FLC #### [facility] (DEFAULT) [address] [place] [id number] IMMUNOGLOBULINS IGG IGA IGMO rdered By: Kofi Guzman on 03-08-2024 IgA [Mass/Vol] 64 mg/dL Low 90 - 410 mg/dL [facility] IgG [Mass/Vol] 581 mg/dL Low 600 - 1560 mg/dL [facility] IgM [Mass/Vol] mg/dL Low 30 - 360 mg/dL [facility] Comment on above: Repeated and verifie d Interpretation and review of laboratory results Abnormal [facility] IMMUNOGLOBULINS IGG IGA IGMo n 03-08-2024 IgA [Mass/Vol] 64 mg/dL Low 90-410 [facility] Comment on above: Performed By: #### Q IMM #### [facility] (DEFAULT) [address] [place] [address] IgG [Mass/Vol] 581 mg/dL Low 600-1560 [facility] Comment on above: Performed By: #### Q IMM #### [facility] (DEFAULT) [address] [place] [address] IGM < Low 30-360 [facility] Comment on above: Result Comment: Repe ated and verified Performed By: #### Q IMM #### [facility] (DEFAULT) [address] [place] [address] PROTEIN ELECTROPHORESISon Albumin [Mass/Vol] 3.5 g/dL Normal 3.5-5.0 [facility] Comment on above: Performed By: #### L [id number] #### [facility] (DEFAULT) [address] [place] [address] Alpha 1 0.4 g/dL Normal 0.2-0.4 [facility] Comment on above: Performed By: #### L [id number] #### [facility] (DEFAULT) [address] [address] Alpha 2 0.8 g/dL Normal 0.5-1.0 [facility] Comment on above: Performed By: #### L [id number] #### [facility] (DEFAULT) [address] [address] Beta 0.7 g/dL Normal 0.5-1.1 [facility] Comment on above: Performed By: #### L [id number] #### [facility] (DEFAULT) [address] [address] Gamma 0.5 g/dL Low 0.6-1.5 [facility] Comment on above: Performed By: #### L [id number] #### [facility] (DEFAULT) [address] [address] Interpretation By: Nia Zhao DO Normal [facility] Comment on above: Performed By: #### L [id number] #### [facility] (DEFAULT) [address] [address] Spe Interpretation There is a prominent zone of restriction in the gamma region with a marked decrease in the remaining polyclonal immunoglobulins, a pattern suggestive of a monoclonal gammopathy. Normal [facility] Comment on above: Performed By: #### L [id number] #### [facility] (DEFAULT) [address] [address] SPE SERUM TOTAL PROTEINon Interpretation and review of laboratory results Abnormal [facility] Protein [Mass/Vol] 5.8 g/dL Low 6.4 - 8.3 g/dL [facility] Protein [Mass/Vol] 5.8 g/dL Low 6.4-8.3 [facility] Comment on above: Performed By: #### L [id number] #### [facility] (DEFAULT) [address] [place] [address] OT General Evaluationon 02-25 OT General Evaluation Normal [facility] Absolute lymphocyte countOrd ered By: Georginadayanna Perez on 01-19-2024 Lymphocytes Auto (Unsp spec) [#/Vol] 0.51 10*3/uL 0.83-4.51 [facility] Albumin Elph [Mass/Vol]Order ed By: Jenn Perez on 01-19-2024 Albumin [Mass/Vol] 3.3 g/dL 2.9-4.4 [facility] Automated lymphocyte count a s percentage of total leukocytesOrdered By: Jenn Perez on 01-19-2024 Lymphocytes/100 WBC Auto (Unsp spec) 16.1 % 19-41 [facility] Basophil percentageOrdered B y: Jenn Perez on 01-19-2024 Basophils/100 WBC (Bld) 2.2 % 0-1 [facility] Bilirubin [Mass/Vol] 0.30 mg/dL 0.20-1.00 [facility] Comment on above: For patients on eltr ombopag therapy, use of Dimension Earle TBIL is not recommended. Chloride [Moles/Vol] 105 mmol/L 98-107 [facility] Eosinophils/100 WBC (Bld) 2.8 % 0-5 [facility] Glucose [Mass/Vol] 102 mg/dL 74-106 [facility] Comment on above: Fasting Glucose resu lt from 100 to 125 mg/dL suggests IMPAIRED HOMEOSTASIS per A.D.A. criteria. Hemoglobin (Bld) [Mass/Vol] 11.9 g/dL 13.0-16.5 [facility] Monocytes/100 WBC (Bld) 12.9 % 0-10 [facility] Neutrophils (Bld) [#/Vol] 2.1 10*3/uL 2.0-7.7 [facility] Neutrophils/100 WBC (Bld) 65.4 % 47-70 [facility] Potassium [Moles/Vol] 4.2 mmol/L 3.5-5.1 [facility] Protein [Mass/Vol] 6.1 g/dL 6.4-8.2 [facility] Sodium [Moles/Vol] 139 mmol/L 136-145 [facility] WBC (Bld) [#/Vol] 3.2 10*3/uL 4.4-11.0 [facility] Determination of erythrocyte mean corpuscular volume (MCV)Ordered By: Jenn Perez on 01-19-2024 MCV (RBC) [Entitic vol] 88.0 fL 80-94 [facility] Erythrocyte distribution wid th ratioOrdered By: Jenn Perez on 01-19-2024 Erythrocyte distribution width (RBC) [Ratio] 16.6 % 11.6-14.6 [facility] Erythrocyte distribution wid th standard deviationOrdered By: Jenn Perez on 01-19-2024 Erythrocyte distribution width (RBC) [Entitic vol] 53.2 fL 35.1-43.9 [facility] Hematocrit Auto (Bld) [Volum e fraction]Ordered By: Jenn Perez on 01-19-2024 Hematocrit (Bld) [Volume fraction] 37.5 % 40-54 [facility] Immature granulocytes/100 WB C Auto (Bld)Or[facility] By: [facility] on 01-19-2024 Immature granulocytes/100 WBC (Bld) 0.600 % 0.0-0.9 [facility] Comment on above: IG% - Immature Granu locytes (promyelocytes, myelocytes and metamyelocytes) > 1% indicates that a LEFT SHIFT is Present. Interpretation of serum or p lasma protein pattern by immunofixation (narrative resultOrdered By: Jenn Perez on 01-19-2024 Protein Fractions Immunofixation Johnny [Interp] Not Observed g/dL Not Observed [facility] Laboratory - Chemistry and C hemistry - challengeOrdered By: [facility] on 01-19-2024 Albumin/Globulin [Mass ratio] 1.0 {ratio} 0.9-2.4 [facility] ALP [Catalytic activity/Vol] 56 U/L 45-117 [facility] ALT [Catalytic activity/Vol] 11 U/L 16-61 [facility] CO2 [Moles/Vol] 31.0 mmol/L 21.0-32.0 [facility] Urea nitrogen/Creatinine [Mass ratio] 31.0 mg/mg 10-20 [facility] Laboratory - Hematology and Cell countsOrdered By: Jenn Perez on 01-19-2024 MCH (RBC) [Entitic mass] 27.9 pg 27.0-32.0 [facility] MCHC (RBC) [Mass/Vol] 31.7 g/dL 32-36 [facility] Nucleated RBC/100 WBC (Bld) [Ratio] 0 % 0-5 [facility] Platelet mean volume (Bld) [Entitic vol] 11.2 fL 6.2-12.0 [facility] Platelets (Bld) [#/Vol] 167 10*3/uL 150-450 [facility] No Panel InformationOrdered By: Jenn Perez on 01-19-2024 Addendum Document Comment . [facility] Comment on above: Protein electrophore sis scan will follow via computer,mail, or lean leader delivery. Estimated Creatinine Clearance Calc 90.76 ml/min [facility] Estimated GFR (MDRD) Amer 129 mL/min >60 [facility] Comment on above: GFR Calc Estimated GFR (MDRD) Non-Af Amer 107 mL/min >60 [facility] Comment on above: Non- GFR Calc Free Lambda Light Chains, Quant 7.1 mg/L 5.7-26.3 [facility] Immunoglobulin M 10 mg/dL 20-172 [facility] Comment on above: Result confirmed on concentration. RBC Auto (Bld) [#/Vol]Ordere d By: Jenn Perez on 01-19-2024 RBC (Bld) [#/Vol] 4.26 10*6/uL 4.6-6.2 [facility] Serum [id number] measu rement by electrophoresisOrdered By: Jenn Perez on 01-19-2024 Alpha 1 globulin Elph [Mass/Vol] 0.2 g/dL 0.0-0.4 [facility] Alpha 1 globulin Elph [Mass/Vol] 0.8 g/dL 0.4-1.0 [facility] Serum globulin measurement ( mass/volume)Ordered By: Jenn Perez on 01-19-2024 Globulin (S) [Mass/Vol] 2.2 g/dL 2.2-3.9 [facility] Serum immunoglobulin kappa l ight chains/immunoglobulin lambda light chains mass ratioOrdered By: Jenn Perez on 01-19-2024 Immunoglobulin light chains.kappa/Immunoglobu dav light chains.lambda (S) [Mass ratio] 1.69 0.26-1.65 [facility] Comment on above: Performed at: [address] [id number] Director: Micky Arreola PhD, Phone: [phone] Serum or plasma IgA measurem ent (mass/volume)Ordered By: [facility] on 01-19-2024 IgA [Mass/Vol] 69 mg/dL 61-437 [facility] Serum or plasma IgG measurem ent (mass/volume)Ordered By: Jenn Perez on 01-19-2024 IgG [Mass/Vol] 599 mg/dL 603-1613 [facility] Serum or plasma beta globuli n measurement by electrophoresis (mass/volume)Ordered By: Jenn Perez on 01-19-2024 Beta globulin Elph [Mass/Vol] 0.8 g/dL 0.7-1.3 [facility] Serum or plasma calcium giovanny urement (mass/volume)Ordered By: [facility] on 01-19-2024 Calcium [Mass/Vol] 8.9 mg/dL 8.5-10.1 [facility] Serum or plasma creatinine m easurement (mass/volume)Ordered By: Jenn Perez on 01-19-2024 Creatinine [Mass/Vol] 0.78 mg/dL 0.70-1.30 [facility] Comment on above: The validity of the calculated GFR & GFRAA in patients over 70 years has not been determined. Clinical correlation is essential. Serum or plasma gamma globul in measurement by electrophoresis (mass/volume)Ordered By: Jenn Perez on 01-19-2024 Gamma globulin Elph [Mass/Vol] 0.4 g/dL 0.4-1.8 [facility] Serum or plasma immunoelectr ophoresis interpretation (nominal result)Ordered By: Jenn Perez on 01-19-2024 Interpretation IEP [Interp] Comment: . [facility] Comment on above: Presence of monoclon al protein is unclear at this time. Suggestrepeat in 3 to 6 months if clinically indicated. Serum or plasma immunoglobul in kappa light chains measurement (mass/volume)Ordered By: Jenn Perez on 01-19-2024 Immunoglobulin light chains.kappa [Mass/Vol] 12.0 mg/L 3.3-19.4 [facility] Serum or plasma urea nitroge n measurement (mass/volume)Ordered By: [facility] on 01-19-2024 Urea nitrogen [Mass/Vol] 24 mg/dL 7-18 [facility] Thin prep Papanicolaou smear with manual screeningOrdered By: [facility] on 01-19-2024 Thin prep Papanicolaou smear with manual screening 3.0 g/dL 3.2-5.0 [facility] Thin prep Papanicolaou smear with manual screening 9 U/L 15-37 [facility] Thin prep Papanicolaou smear with manual screening 3 5-15 [facility] Thin prep Papanicolaou smear with manual screening 1.6 0.7-1.7 [facility] Total protein bloodOrdered B y: Jenn Perez on 01-19-2024 Protein [Mass/Vol] 5.5 g/dL 6.0-8.5 [facility] Basophil percentageOrdered B y: Iraida Odomnannette on 01-13-2024 Bilirubin [Mass/Vol] 0.60 mg/dL 0.20-1.00 [facility] Comment on above: For patients on eltr ombopag therapy, use of Dimension Earle TBIL is not recommended. Chloride [Moles/Vol] 104 mmol/L 98-107 [facility] Cholesterol [Mass/Vol] 162 mg/dL <200 [facility] Comment on above: <200 mg/dL Desirable 200-240 mg/dL Borderline >240 mg/dL High Risk Glucose [Mass/Vol] 99 mg/dL 74-106 [facility] Hemoglobin (Bld) [Mass/Vol] 12.3 g/dL 13.0-16.5 [facility] Potassium [Moles/Vol] 3.2 mmol/L 3.5-5.1 [facility] Protein [Mass/Vol] 6.0 g/dL 6.4-8.2 [facility] Sodium [Moles/Vol] 140 mmol/L 136-145 [facility] Triglyceride [Mass/Vol] 86 mg/dL <199 [facility] Comment on above: The drugs N-Acetylcy steine and Metamizole may falsely depress this assay.Serum Triglycerides Reference Interval Normal <150 mg/dL Borderline high 150 - 199 mg/dL High 200 - 499 mg/dL Very High > or = 500 mg/dL WBC (Bld) [#/Vol] 1.6 10*3/uL 4.4-11.0 [facility] Determination of erythrocyte mean corpuscular volume (MCV)Ordered By: Iraida Balderas on 01-13-2024 MCV (RBC) [Entitic vol] 89.5 fL 80-94 [facility] Erythrocyte distribution wid th ratioOrdered By: Iraida Balderas on 01-13-2024 Erythrocyte distribution width (RBC) [Ratio] 16.3 % 11.6-14.6 [facility] Erythrocyte distribution wid th standard deviationOrdered By: Iraida Balderas on 01-13-2024 Erythrocyte distribution width (RBC) [Entitic vol] 52.7 fL 35.1-43.9 [facility] Hematocrit Auto (Bld) [Volum e fraction]Ordered By: Iraida Balderas on 01-13-2024 Hematocrit (Bld) [Volume fraction] 39.3 % 40-54 [facility] Laboratory - Chemistry and C hemistry - challengeOrdered By: Iraida Balderas on 01-13-2024 Albumin/Globulin [Mass ratio] 1.1 {ratio} 0.9-2.4 [facility] ALP [Catalytic activity/Vol] 57 U/L 45-117 [facility] ALT [Catalytic activity/Vol] 16 U/L 16-61 [facility] Cholesterol in HDL [Mass/Vol] 55 mg/dL >40 [facility] Comment on above: The drugs N-Acetylcy steine and Metamizole may falsely depress this assay. Reference Range HDL <40 mg/dL Low HDL Cholesterol HDL >or= 60 mg/dL High HDL Cholesterol Cholesterol in LDL [Mass/Vol] 90 mg/dL 0-130 [facility] CO2 [Moles/Vol] 30.0 mmol/L 21.0-32.0 [facility] Globulin (S) [Mass/Vol] 2.8 g/dL 2.2-4.2 [facility] Urea nitrogen/Creatinine [Mass ratio] 14.7 mg/mg 10-20 [facility] Laboratory - Hematology and Cell countsOrdered By: Iraida Balderas on 01-13-2024 MCH (RBC) [Entitic mass] 28.0 pg 27.0-32.0 [facility] MCHC (RBC) [Mass/Vol] 31.3 g/dL 32-36 [facility] Platelet mean volume (Bld) [Entitic vol] 12.0 fL 6.2-12.0 [facility] Platelets (Bld) [#/Vol] 137 10*3/uL 150-450 [facility] No Panel InformationOrdered By: Iraida Balderas on 01-13-2024 Estimated GFR (MDRD) Amer 110 mL/min >60 [facility] Comment on above: GFR Calc Estimated GFR (MDRD) Non-Af Amer 91 mL/min >60 [facility] Comment on above: Non- GFR Calc Vitamin D 25-Hydroxy 111.6 ng/mL [facility] Comment on above: Vitamin D 25(OH) Sta tus Range Deficiency <20 ng/mL (50nmol/L) Insufficiency 20 - 30 ng/mL (50 - 75 nmol/L) Sufficiency 30 - 100 ng/mL (75 - 250 nmol/L) Toxicity >100 ng/mL (>250 nmol/L)Evidence suggests that patients undergoing fluorescein dye angiography can retain small amounts of fluorescein in the body for up to 48 to 72 hours post-treatment. In the cases of patients with renal insufficiency, retention could be much longer. Samples containing fluorescein can produce falsely elevated values when tested with the [employer] Centaur Vitamin D assay. With fluorescein interference, observed Vitamin D values can be as high as >150 ng/mL (>375 nmol/L). Samples should be resubmitted post fluorescein clearance to ensure there is no interference with Vitamin D test results. VLDL Cholesterol 17 mg/dL 5-40 [facility] RBC Auto (Bld) [#/Vol]Ordere d By: Iraida Balderas on 01-13-2024 RBC (Bld) [#/Vol] 4.39 10*6/uL 4.6-6.2 [facility] Serum or plasma calcium giovanny urement (mass/volume)Ordered By: Iraida Balderas on 01-13-2024 Calcium [Mass/Vol] 8.8 mg/dL 8.5-10.1 [facility] Serum or plasma creatinine m easurement (mass/volume)Ordered By: Iraida Balderas on 01-13-2024 Creatinine [Mass/Vol] 0.89 mg/dL 0.70-1.30 [facility] Comment on above: The validity of the calculated GFR & GFRAA in patients over 70 years has not been determined. Clinical correlation is essential. Serum or plasma thyroid stim ulating hormone (TSH) measurement (units/volume)Ordered By: Iraida Balderas on 01-13-2024 TSH Qn 2.44 uIU/mL 0.358-3.74 [facility] Serum or plasma urea nitroge n measurement (mass/volume)Ordered By: Iraida Balderas on 01-13-2024 Urea nitrogen [Mass/Vol] 13 mg/dL 7-18 [facility] Thin prep Papanicolaou smear with manual screeningOrdered By: Iraida Balderas on 01-13-2024 Thin prep Papanicolaou smear with manual screening 3.2 g/dL 3.2-5.0 [facility] Thin prep Papanicolaou smear with manual screening 12 U/L 15-37 [facility] Thin prep Papanicolaou smear with manual screening 6 5-15 [facility] Thin prep Papanicolaou smear with manual screening 1.30 ng/dL 0.76-1.46 [facility] Anaerobic cultureOrdered By: Te Shah on 12-30-2023 Bacteria identified Anaer cx Nom (Unsp spec) No anaerobic bacteria isolated. [facility] Bacteria identified Cx Nom ( Wound)Ordered By: Te Shah on 12-30-2023 Wound Culture Meth. resistant Stap h. aureus [facility] Wound Culture Streptococcus agalactiae (B) [facility] Wound Culture Staphylococcus capitis [facility] Gram stain for investigation of transfusion reactionOrdered By: Te Shah on 12-30-2023 Microscopic observation Gram stain Nom (Unsp spec) [facility] Absolute lymphocyte countOrd ered By: Jenn Perez on 12-22-2023 Lymphocytes Auto (Unsp spec) [#/Vol] 0.50 10*3/uL 0.83-4.51 [facility] Automated lymphocyte count a s percentage of total leukocytesOrdered By: Jenn Perez on 12-22-2023 Lymphocytes/100 WBC Auto (Unsp spec) 14.1 % 19-41 [facility] Basophil percentageOrdered B y: Jenn Perez on 12-22-2023 Basophils/100 WBC (Bld) 2.3 % 0-1 [facility] Bilirubin [Mass/Vol] 0.20 mg/dL 0.20-1.00 [facility] Comment on above: For patients on eltr ombopag therapy, use of Dimension Earle TBIL is not recommended. Chloride [Moles/Vol] 106 mmol/L 98-107 [facility] Eosinophils/100 WBC (Bld) 4.5 % 0-5 [facility] Glucose [Mass/Vol] 98 mg/dL 74-106 [facility] Hemoglobin (Bld) [Mass/Vol] 12.1 g/dL 13.0-16.5 [facility] Monocytes/100 WBC (Bld) 16.3 % 0-10 [facility] Neutrophils (Bld) [#/Vol] 2.2 10*3/uL 2.0-7.7 [facility] Neutrophils/100 WBC (Bld) 62.5 % 47-70 [facility] Potassium [Moles/Vol] 3.9 mmol/L 3.5-5.1 [facility] Protein [Mass/Vol] 6.1 g/dL 6.4-8.2 [facility] Sodium [Moles/Vol] 140 mmol/L 136-145 [facility] WBC (Bld) [#/Vol] 3.6 10*3/uL 4.4-11.0 [facility] Determination of erythrocyte mean corpuscular volume (MCV)Ordered By: Jenn Perez on 12-22-2023 MCV (RBC) [Entitic vol] 88.3 fL 80-94 [facility] Erythrocyte distribution wid th ratioOrdered By: Jenn Perez on 12-22-2023 Erythrocyte distribution width (RBC) [Ratio] 15.6 % 11.6-14.6 [facility] Erythrocyte distribution wid th standard deviationOrdered By: Jenn Perez on 12-22-2023 Erythrocyte distribution width (RBC) [Entitic vol] 50.7 fL 35.1-43.9 [facility] Hematocrit Auto (Bld) [Volum e fraction]Ordered By: [facility] on 12-22-2023 Hematocrit (Bld) [Volume fraction] 38.6 % 40-54 [facility] Immature granulocytes/100 WB C Auto (Bld)Ordered By: [facility] on 12-22-2023 Immature granulocytes/100 WBC (Bld) 0.300 % 0.0-0.9 [facility] Comment on above: IG% - Immature Granu locytes (promyelocytes, myelocytes and metamyelocytes) > 1% indicates that a LEFT SHIFT is Present. Laboratory - Chemistry and C hemistry - challengeOrdered By: [facility] on 12-22-2023 Albumin/Globulin [Mass ratio] 1.0 {ratio} 0.9-2.4 [facility] ALP [Catalytic activity/Vol] 62 U/L 45-117 [facility] ALT [Catalytic activity/Vol] 12 U/L 16-61 [facility] CO2 [Moles/Vol] 28.0 mmol/L 21.0-32.0 [facility] Globulin (S) [Mass/Vol] 3.1 g/dL 2.2-4.2 [facility] Urea nitrogen/Creatinine [Mass ratio] 20.3 mg/mg 10-20 [facility] Laboratory - Hematology and Cell countsOrdered By: [facility] on 12-22-2023 MCH (RBC) [Entitic mass] 27.7 pg 27.0-32.0 [facility] MCHC (RBC) [Mass/Vol] 31.3 g/dL 32-36 [facility] Nucleated RBC/100 WBC (Bld) [Ratio] 0 % 0-5 [facility] Platelet mean volume (Bld) [Entitic vol] 10.6 fL 6.2-12.0 [facility] Platelets (Bld) [#/Vol] 184 10*3/uL 150-450 [facility] No Panel InformationOrdered By: Jenn Perez on 12-22-2023 Estimated Creatinine Clearance Calc 87.11 ml/min [facility] Estimated GFR (MDRD) Amer 118 mL/min >60 [facility] Comment on above: GFR Calc Estimated GFR (MDRD) Non-Af Amer 97 mL/min >60 [facility] Comment on above: Non- GFR Calc RBC Auto (Bld) [#/Vol]Ordere d By: Jenn Preez on 12-22-2023 RBC (Bld) [#/Vol] 4.37 10*6/uL 4.6-6.2 [facility] Serum or plasma calcium giovanny urement (mass/volume)Ordered By: Jenn Perez on 12-22-2023 Calcium [Mass/Vol] 8.9 mg/dL 8.5-10.1 [facility] Serum or plasma creatinine m easurement (mass/volume)Ordered By: Jenn Perez on 12-22-2023 Creatinine [Mass/Vol] 0.84 mg/dL 0.70-1.30 [facility] Comment on above: The validity of the calculated GFR & GFRAA in patients over 70 years has not been determined. Clinical correlation is essential. Serum or plasma urea nitroge n measurement (mass/volume)Ordered By: Jenn Perez on 12-22-2023 Urea nitrogen [Mass/Vol] 17 mg/dL 7-18 [facility] Thin prep Papanicolaou smear with manual screeningOrdered By: Jenn Perez on 12-22-2023 Thin prep Papanicolaou smear with manual screening 3.0 g/dL 3.2-5.0 [facility] Thin prep Papanicolaou smear with manual screening 12 U/L 15-37 [facility] Thin prep Papanicolaou smear with manual screening 6 5-15 [facility] Basophil percentageOrdered B y: Iraida Balderas on 12-13-2023 Bilirubin [Mass/Vol] 0.20 mg/dL 0.20-1.00 [facility] Comment on above: For patients on eltr ombopag therapy, use of Dimension Earle TBIL is not recommended. Chloride [Moles/Vol] 106 mmol/L 98-107 [facility] Glucose [Mass/Vol] 101 mg/dL 74-106 [facility] Comment on above: Fasting Glucose resu lt from 100 to 125 mg/dL suggests IMPAIRED HOMEOSTASIS per A.D.A. criteria. Potassium [Moles/Vol] 3.9 mmol/L 3.5-5.1 [facility] Protein [Mass/Vol] 5.4 g/dL 6.4-8.2 [facility] Sodium [Moles/Vol] 140 mmol/L 136-145 [facility] Laboratory - Chemistry and C hemistry - challengeOrdered By: Iraida Balderas on 12-13-2023 Albumin/Globulin [Mass ratio] 1.0 {ratio} 0.9-2.4 [facility] ALP [Catalytic activity/Vol] 54 U/L 45-117 [facility] ALT [Catalytic activity/Vol] 11 U/L 16-61 [facility] CO2 [Moles/Vol] 30.0 mmol/L 21.0-32.0 [facility] Globulin (S) [Mass/Vol] 2.7 g/dL 2.2-4.2 [facility] Urea nitrogen/Creatinine [Mass ratio] 16.4 mg/mg 10-20 [facility] No Panel InformationOrdered By: Iraida Balderas on 12-13-2023 Estimated GFR (MDRD) Amer 106 mL/min >60 [facility] Comment on above: GFR Calc Estimated GFR (MDRD) Non-Af Amer 88 mL/min >60 [facility] Comment on above: Non- GFR Calc Serum or plasma calcium giovanny urement (mass/volume)Ordered By: Iraida Balderas on 12-13-2023 Calcium [Mass/Vol] 8.5 mg/dL 8.5-10.1 [facility] Serum or plasma creatinine m easurement (mass/volume)Ordered By: Iraida Balderas on 12-13-2023 Creatinine [Mass/Vol] 0.92 mg/dL 0.70-1.30 [facility] Comment on above: The validity of the calculated GFR & GFRAA in patients over 70 years has not been determined. Clinical correlation is essential. Serum or plasma urea nitroge n measurement (mass/volume)Ordered By: Iraida Balderas on 12-13-2023 Urea nitrogen [Mass/Vol] 15 mg/dL 7-18 [facility] Thin prep Papanicolaou smear with manual screeningOrdered By: Iraida Balderas on 12-13-2023 Thin prep Papanicolaou smear with manual screening 2.7 g/dL 3.2-5.0 [facility] Thin prep Papanicolaou smear with manual screening 10 U/L 15-37 [facility] Thin prep Papanicolaou smear with manual screening 4 5-15 [facility] Anaerobic cultureOrdered By: Te Shah on 12-09-2023 Bacteria identified Anaer cx Nom (Unsp spec) No anaerobic bacteria isolated. [facility] Gram stain for investigation of transfusion reactionOrdered By: Te Shah on 12-09-2023 Microscopic observation Gram stain Nom (Unsp spec) [facility] Routine wound cultureOrdered By: Te Shah on 12-09-2023 Bacteria identified Cx Nom (Wound) No growth aerobically. [facility] Absolute lymphocyte countOrd ered By: Jenn Perez on 11-24-2023 Lymphocytes Auto (Unsp spec) [#/Vol] 0.32 10*3/uL 0.83-4.51 [facility] Albumin Elph [Mass/Vol]Order ed By: Jenn Perez on 11-24-2023 Albumin [Mass/Vol] 3.3 g/dL 2.9-4.4 [facility] Automated lymphocyte count a s percentage of total leukocytesOrdered By: Jenn Perez on 11-24-2023 Lymphocytes/100 WBC Auto (Unsp spec) 7.9 % 19-41 [facility] Basophil percentageOrdered B y: Jenn Perez on 11-24-2023 Basophils/100 WBC (Bld) 1.7 % 0-1 [facility] Bilirubin [Mass/Vol] 0.20 mg/dL 0.20-1.00 [facility] Comment on above: For patients on eltr ombopag therapy, use of Dimension Earle TBIL is not recommended. Chloride [Moles/Vol] 106 mmol/L 98-107 [facility] Eosinophils/100 WBC (Bld) 2.5 % 0-5 [facility] Glucose [Mass/Vol] 105 mg/dL 74-106 [facility] Comment on above: Fasting Glucose resu lt from 100 to 125 mg/dL suggests IMPAIRED HOMEOSTASIS per A.D.A. criteria. Hemoglobin (Bld) [Mass/Vol] 11.9 g/dL 13.0-16.5 [facility] Monocytes/100 WBC (Bld) 9.2 % 0-10 [facility] Neutrophils (Bld) [#/Vol] 3.2 10*3/uL 2.0-7.7 [facility] Neutrophils/100 WBC (Bld) 78.5 % 47-70 [facility] Potassium [Moles/Vol] 4.0 mmol/L 3.5-5.1 [facility] Protein [Mass/Vol] 6.1 g/dL 6.4-8.2 [facility] Sodium [Moles/Vol] 140 mmol/L 136-145 [facility] WBC (Bld) [#/Vol] 4.0 10*3/uL 4.4-11.0 [facility] Determination of erythrocyte mean corpuscular volume (MCV)Ordered By: Jenn Perez on 11-24-2023 MCV (RBC) [Entitic vol] 89.4 fL 80-94 [facility] Erythrocyte distribution wid th ratioOrdered By: [facility] on 11-24-2023 Erythrocyte distribution width (RBC) [Ratio] 15.3 % 11.6-14.6 [facility] Erythrocyte distribution wid th standard deviationOrdered By: [facility] Chris on 11-24-2023 Erythrocyte distribution width (RBC) [Entitic vol] 49.3 fL 35.1-43.9 [facility] Hematocrit Auto (Bld) [Volum e fraction]Ordered By: [facility] Chris on 11-24-2023 Hematocrit (Bld) [Volume fraction] 38.1 % 40-54 [facility] Immature granulocytes/100 WB C Auto (Bld)Ordered By: Jenn Perez on 11-24-2023 Immature granulocytes/100 WBC (Bld) 0.200 % 0.0-0.9 [facility] Comment on above: IG% - Immature Granu locytes (promyelocytes, myelocytes and metamyelocytes) > 1% indicates that a LEFT SHIFT is Present. Interpretation of serum or p lasma protein pattern by immunofixation (narrative resultOrdered By: Jenn Perez on 11-24-2023 Protein Fractions Immunofixation Johnny [Interp] Not Observed g/dL Not Observed [facility] Laboratory - Chemistry and C hemistry - challengeOrdered By: Jenn Perez on 11-24-2023 Albumin/Globulin [Mass ratio] 1.0 {ratio} 0.9-2.4 [facility] ALP [Catalytic activity/Vol] 67 U/L 45-117 [facility] ALT [Catalytic activity/Vol] 12 U/L 16-61 [facility] CO2 [Moles/Vol] 29.0 mmol/L 21.0-32.0 [facility] Globulin (S) [Mass/Vol] 3.1 g/dL 2.2-4.2 [facility] Urea nitrogen/Creatinine [Mass ratio] 21.5 mg/mg 10-20 [facility] Laboratory - Hematology and Cell countsOrdered By: Jenn Perez on 11-24-2023 MCH (RBC) [Entitic mass] 27.9 pg 27.0-32.0 [facility] MCHC (RBC) [Mass/Vol] 31.2 g/dL 32-36 [facility] Nucleated RBC/100 WBC (Bld) [Ratio] 0 % 0-5 [facility] Platelet mean volume (Bld) [Entitic vol] 10.2 fL 6.2-12.0 [facility] Platelets (Bld) [#/Vol] 225 10*3/uL 150-450 [facility] No Panel InformationOrdered By: Jenn Perez on 11-24-2023 Addendum Document Comment . [facility] Comment on above: Protein electrophore sis scan will follow via computer,mail, or lean leader delivery. Estimated Creatinine Clearance Calc 91.46 ml/min [facility] Estimated GFR (MDRD) Amer 126 mL/min >60 [facility] Comment on above: GFR Calc Estimated GFR (MDRD) Non-Af Amer 104 mL/min >60 [facility] Comment on above: Non- GFR Calc Free Lambda Light Chains, Quant 10.4 mg/L 5.7-26.3 [facility] Immunoglobulin M 11 mg/dL 20-172 [facility] Comment on above: Result confirmed on concentration. RBC Auto (Bld) [#/Vol]Ordere d By: Jenn Perez on 11-24-2023 RBC (Bld) [#/Vol] 4.26 10*6/uL 4.6-6.2 [facility] Serum [id number] measu rement by electrophoresisOrdered By: Jenn Perez on 11-24-2023 Alpha 1 globulin Elph [Mass/Vol] 0.2 g/dL 0.0-0.4 [facility] Alpha 1 globulin Elph [Mass/Vol] 0.9 g/dL 0.4-1.0 [facility] Serum globulin measurement ( mass/volume)Ordered By: Jenn Perez on 11-24-2023 Globulin (S) [Mass/Vol] 2.3 g/dL 2.2-3.9 [facility] Serum immunoglobulin kappa l ight chains/immunoglobulin lambda light chains mass ratioOrdered By: Jenn Perez on 11-24-2023 Immunoglobulin light chains.kappa/Immunoglobu dav light chains.lambda (S) [Mass ratio] 1.34 0.26-1.65 [facility] Comment on above: Performed at: [place] [id number] Director: Micky Arreola PhD, Phone: [phone] Serum or plasma IgA measurem ent (mass/volume)Ordered By: Jenn Perez on 11-24-2023 IgA [Mass/Vol] 55 mg/dL 61-437 [facility] Serum or plasma IgG measurem ent (mass/volume)Ordered By: Jenn Perez on 11-24-2023 IgG [Mass/Vol] 572 mg/dL 603-1613 [facility] Serum or plasma beta globuli n measurement by electrophoresis (mass/volume)Ordered By: Jenn Perez on 11-24-2023 Beta globulin Elph [Mass/Vol] 0.8 g/dL 0.7-1.3 [facility] Serum or plasma calcium giovanny urement (mass/volume)Ordered By: Jenn Perez on 11-24-2023 Calcium [Mass/Vol] 9.2 mg/dL 8.5-10.1 [facility] Serum or plasma creatinine m easurement (mass/volume)Ordered By: Jenn Perez on 11-24-2023 Creatinine [Mass/Vol] 0.79 mg/dL 0.70-1.30 [facility] Comment on above: The validity of the calculated GFR & GFRAA in patients over 70 years has not been determined. Clinical correlation is essential. Serum or plasma gamma globul in measurement by electrophoresis (mass/volume)Ordered By: Jenn Perez on 11-24-2023 Gamma globulin Elph [Mass/Vol] 0.4 g/dL 0.4-1.8 [facility] Serum or plasma immunoelectr ophoresis interpretation (nominal result)Ordered By: Jenn Perez on 11-24-2023 Interpretation IEP [Interp] Comment . [facility] Comment on above: No monoclonality det ected. Serum or plasma immunoglobul in kappa light chains measurement (mass/volume)Ordered By: Jenn Perez on 11-24-2023 Immunoglobulin light chains.kappa [Mass/Vol] 13.9 mg/L 3.3-19.4 [facility] Serum or plasma urea nitroge n measurement (mass/volume)Ordered By: Jenn Perez on 11-24-2023 Urea nitrogen [Mass/Vol] 17 mg/dL 7-18 [facility] Thin prep Papanicolaou smear with manual screeningOrdered By: Jenn Perez on 11-24-2023 Thin prep Papanicolaou smear with manual screening 3.0 g/dL 3.2-5.0 [facility] Thin prep Papanicolaou smear with manual screening 10 U/L 15-37 [facility] Thin prep Papanicolaou smear with manual screening 5 5-15 [facility] Thin prep Papanicolaou smear with manual screening 1.5 0.7-1.7 [facility] Total protein bloodOrdered B y: Jenn Perez on 11-24-2023 Protein [Mass/Vol] 5.6 g/dL 6.0-8.5 [facility] Absolute lymphocyte countOrd ered By: Jenn Perez on 01-31-2024 Lymphocytes Auto (Unsp spec) [#/Vol] 0.48 10*3/uL 0.83-4.51 [facility] Albumin Elph [Mass/Vol]Order ed By: Jenn Perez on 10-27-2023 Albumin [Mass/Vol] 3.4 g/dL 2.9-4.4 [facility] Automated lymphocyte count a s percentage of total leukocytesOrdered By: Jenn Perez on 10-27-2023 Lymphocytes/100 WBC Auto (Unsp spec) 11.3 % 19-41 [facility] Basophil percentageOrdered B y: Jenn Perez on 10-27-2023 Basophils/100 WBC (Bld) 0.7 % 0-1 [facility] Bilirubin [Mass/Vol] 0.30 mg/dL 0.20-1.00 [facility] Comment on above: For patients on eltr ombopag therapy, use of Dimension Earle TBIL is not recommended. Chloride [Moles/Vol] 107 mmol/L 98-107 [facility] Eosinophils/100 WBC (Bld) 4.0 % 0-5 [facility] Glucose [Mass/Vol] 111 mg/dL 74-106 [facility] Comment on above: Fasting Glucose resu lt from 100 to 125 mg/dL suggests IMPAIRED HOMEOSTASIS per A.D.A. criteria. Hemoglobin (Bld) [Mass/Vol] 12.5 g/dL 13.0-16.5 [facility] Monocytes/100 WBC (Bld) 8.7 % 0-10 [facility] Neutrophils (Bld) [#/Vol] 3.2 10*3/uL 2.0-7.7 [facility] Neutrophils/100 WBC (Bld) 74.8 % 47-70 [facility] Potassium [Moles/Vol] 4.2 mmol/L 3.5-5.1 [facility] Protein [Mass/Vol] 6.4 g/dL 6.4-8.2 [facility] Sodium [Moles/Vol] 140 mmol/L 136-145 [facility] WBC (Bld) [#/Vol] 4.2 10*3/uL 4.4-11.0 [facility] Determination of erythrocyte mean corpuscular volume (MCV)Ordered By: Jenn Perez on 10-27-2023 MCV (RBC) [Entitic vol] 90.9 fL 80-94 [facility] Erythrocyte distribution wid th ratioOrdered By: Jenn Perez on 10-27-2023 Erythrocyte distribution width (RBC) [Ratio] 15.5 % 11.6-14.6 [facility] Erythrocyte distribution wid th standard deviationOrdered By: Jenn Perez on 10-27-2023 Erythrocyte distribution width (RBC) [Entitic vol] 51.7 fL 35.1-43.9 [facility] Hematocrit Auto (Bld) [Volum e fraction]Ordered By: [facility] Chris on 10-27-2023 Hematocrit (Bld) [Volume fraction] 40.9 % 40-54 [facility] Immature granulocytes/100 WB C Auto (Bld)Ordered By: [facility] Chris on 10-27-2023 Immature granulocytes/100 WBC (Bld) 0.500 % 0.0-0.9 [facility] Comment on above: IG% - Immature Granu locytes (promyelocytes, myelocytes and metamyelocytes) > 1% indicates that a LEFT SHIFT is Present. Interpretation of serum or p lasma protein pattern by immunofixation (narrative resultOrdered By: Jenn Perez on 10-27-2023 Protein Fractions Immunofixation Johnny [Interp] 0.1 g/dL Not Observed [facility] Laboratory - Chemistry and C hemistry - challengeOrdered By: [facility] on 10-27-2023 Albumin/Globulin [Mass ratio] 0.9 {ratio} 0.9-2.4 [facility] ALP [Catalytic activity/Vol] 75 U/L 45-117 [facility] ALT [Catalytic activity/Vol] 18 U/L 16-61 [facility] CO2 [Moles/Vol] 30.0 mmol/L 21.0-32.0 [facility] Globulin (S) [Mass/Vol] 3.3 g/dL 2.2-4.2 [facility] IgM (U) [Mass/Vol] 11 mg/dL 20-172 [facility] Comment on above: Result confirmed on concentration. Urea nitrogen/Creatinine [Mass ratio] 22.1 mg/mg 10-20 [facility] Laboratory - Hematology and Cell countsOrdered By: Jenn Perez on 10-27-2023 MCH (RBC) [Entitic mass] 27.8 pg 27.0-32.0 [facility] MCHC (RBC) [Mass/Vol] 30.6 g/dL 32-36 [facility] Nucleated RBC/100 WBC (Bld) [Ratio] 0 % 0-5 [facility] Platelets (Bld) [#/Vol] 172 10*3/uL 150-450 [facility] No Panel InformationOrdered By: Jenn Perez on 10-27-2023 Addendum Document Comment . [facility] Comment on above: Protein electrophore sis scan will follow via computer,mail, or lean leader delivery. Estimated Creatinine Clearance Calc 91.46 ml/min [facility] Estimated GFR (MDRD) Amer 130 mL/min >60 [facility] Comment on above: GFR Calc Estimated GFR (MDRD) Non-Af Amer 108 mL/min >60 [facility] Comment on above: Non- GFR Calc Free Lambda Light Chains, Quant 4.0 mg/L 5.7-26.3 [facility] Platelet mean volume Cade-Ec ker (Bld) [Entitic vol]Ordered By: Jenn Perez on 10-27-2023 Platelet mean volume (Bld) [Entitic vol] 9.8 fL 6.2-12.0 [facility] RBC Auto (Bld) [#/Vol]Ordere d By: Jenn Perez on 10-27-2023 RBC (Bld) [#/Vol] 4.50 10*6/uL 4.6-6.2 [facility] Serum [id number] measu rement by electrophoresisOrdered By: Jenn Perez on 10-27-2023 Alpha 1 globulin Elph [Mass/Vol] 0.2 g/dL 0.0-0.4 [facility] Alpha 1 globulin Elph [Mass/Vol] 0.9 g/dL 0.4-1.0 [facility] Serum immunoglobulin kappa l ight chains/immunoglobulin lambda light chains mass ratioOrdered By: Jenn Perez on 10-27-2023 Immunoglobulin light chains.kappa/Immunoglobu dav light chains.lambda (S) [Mass ratio] 2.00 0.26-1.65 [facility] Comment on above: Performed at: [address] [id number] Director: Micky Arreola PhD, Phone: [phone] Serum or plasma IgA measurem ent (mass/volume)Ordered By: Jenn Perez on 10-27-2023 IgA [Mass/Vol] 45 mg/dL 61-437 [facility] Comment on above: Result confirmed on concentration. Serum or plasma IgG measurem ent (mass/volume)Ordered By: Jenn Perez on 10-27-2023 IgG [Mass/Vol] 543 mg/dL 603-1613 [facility] Serum or plasma beta globuli n measurement by electrophoresis (mass/volume)Ordered By: Jenn Perez on 10-27-2023 Beta globulin Elph [Mass/Vol] 0.8 g/dL 0.7-1.3 [facility] Serum or plasma calcium giovanny urement (mass/volume)Ordered By: Jenn Perez on 10-27-2023 Calcium [Mass/Vol] 9.3 mg/dL 8.5-10.1 [facility] Serum or plasma creatinine m easurement (mass/volume)Ordered By: Jenn Perez on 10-27-2023 Creatinine [Mass/Vol] 0.77 mg/dL 0.70-1.30 [facility] Comment on above: The validity of the calculated GFR & GFRAA in patients over 70 years has not been determined. Clinical correlation is essential. Serum or plasma gamma globul in measurement by electrophoresis (mass/volume)Ordered By: Jenn Perez on 10-27-2023 Gamma globulin Elph [Mass/Vol] 0.4 g/dL 0.4-1.8 [facility] Serum or plasma immunoelectr ophoresis interpretation (nominal result)Ordered By: Jenn Perez on 10-27-2023 Interpretation IEP [Interp] Comment . [facility] Comment on above: Immunofixation shows IgG monoclonal protein with kappalight chain specificity. PLEASE NOTE: Samples from patients receiving DARZALEX(R)(daratumumab) or SARCLISA(R)(isatuximab-irfc) treatmentcan appear as an IgG kappa and mask a complete response(CR). If this patient is receiving these therapies, thisIFE assay interference can be removed by ordering testnumber [id number], Daratumumab-Specific,Serum or [id number], Isatuximab-Specific,Serum and submitting a new sample for testing or bycalling the lab to add this test to the current sample. Serum or plasma immunoglobul in kappa light chains measurement (mass/volume)Ordered By: Jenn Perez on 10-27-2023 Immunoglobulin light chains.kappa [Mass/Vol] 8.0 mg/L 3.3-19.4 [facility] Serum or plasma urea nitroge n measurement (mass/volume)Ordered By: Jenn Perez on 10-27-2023 Urea nitrogen [Mass/Vol] 17 mg/dL 7-18 [facility] Thin prep Papanicolaou smear with manual screeningOrdered By: [facility] on 10-27-2023 Thin prep Papanicolaou smear with manual screening 3.1 g/dL 3.2-5.0 [facility] Thin prep Papanicolaou smear with manual screening 11 U/L 15-37 [facility] Thin prep Papanicolaou smear with manual screening 3 5-15 [facility] Thin prep Papanicolaou smear with manual screening 1.5 0.7-1.7 [facility] Total protein bloodOrdered B y: Jenn Perez on 10-27-2023 Protein [Mass/Vol] 5.7 g/dL 6.0-8.5 [facility] Basophil percentageOrdered B y: Iraida Andrey on 10-07-2023 Bilirubin [Mass/Vol] 0.40 mg/dL 0.20-1.00 [facility] Comment on above: For patients on eltr ombopag therapy, use of Dimension Earle TBIL is not recommended. Chloride [Moles/Vol] 105 mmol/L 98-107 [facility] Cholesterol [Mass/Vol] 169 mg/dL <200 [facility] Comment on above: <200 mg/dL Desirable 200-240 mg/dL Borderline >240 mg/dL High Risk Glucose [Mass/Vol] 111 mg/dL 74-106 [facility] Comment on above: Fasting Glucose resu lt from 100 to 125 mg/dL suggests IMPAIRED HOMEOSTASIS per A.D.A. criteria. Potassium [Moles/Vol] 4.1 mmol/L 3.5-5.1 [facility] Protein [Mass/Vol] 6.2 g/dL 6.4-8.2 [facility] Sodium [Moles/Vol] 140 mmol/L 136-145 [facility] Triglyceride [Mass/Vol] 72 mg/dL <199 [facility] Comment on above: The drugs N-Acetylcy steine and Metamizole may falsely depress this assay.Serum Triglycerides Reference Interval Normal <150 mg/dL Borderline high 150 - 199 mg/dL High 200 - 499 mg/dL Very High > or = 500 mg/dL WBC (Bld) [#/Vol] 3.2 10*3/uL 4.4-11.0 [facility] Blood erythrocytes count (nu mber/volume)Ordered By: Iraida Balderas on 10-07-2023 RBC (Bld) [#/Vol] 4.25 10*6/uL 4.6-6.2 [facility] Blood hemoglobin measurement (mass/volume)Ordered By: Iraida Balderas on 10-07-2023 Hemoglobin (Bld) [Mass/Vol] 11.9 g/dL 13.0-16.5 [facility] Blood platelet mean volumeOr dered By: Iraida Balderas on 10-07-2023 Platelet mean volume (Bld) [Entitic vol] 10.8 fL 6.2-12.0 [facility] Determination of erythrocyte mean corpuscular volume (MCV)Ordered By: Iraida Balderas on 10-07-2023 MCV (RBC) [Entitic vol] 94.1 fL 80-94 [facility] Hematocrit Auto (Bld) [Volum e fraction]Ordered By: Iraida Balderas on 10-07-2023 Hematocrit (Bld) [Volume fraction] 40.0 % 40-54 [facility] - Chemistry and C hemistry - challengeOrdered By: Iraida Balderas on 10-07-2023 ALP [Catalytic activity/Vol] 61 U/L 45-117 [facility] ALT [Catalytic activity/Vol] 19 U/L 16-61 [facility] CO2 [Moles/Vol] 31.0 mmol/L 21.0-32.0 [facility] Free T4 [Mass/Vol] 1.13 ng/dL 0.76-1.46 [facility] Globulin (S) [Mass/Vol] 3.4 g/dL 2.2-4.2 [facility] Urea nitrogen/Creatinine [Mass ratio] 12.9 mg/mg 10-20 [facility] - Hematology and Cell countsOrdered By: Iraida Balderas on 10-07-2023 Erythrocyte distribution width (RBC) [Entitic vol] 57.8 fL 35.1-43.9 [facility] Erythrocyte distribution width (RBC) [Ratio] 16.7 % 11.6-14.6 [facility] MCH (RBC) [Entitic mass] 28.0 pg 27.0-32.0 [facility] MCHC Auto (RBC) [Mass/Vol]Or dered By: Iraida Balderas on 10-07-2023 MCHC (RBC) [Mass/Vol] 29.8 g/dL 32-36 [facility] No Panel InformationOrdered By: Iraida Balderas on 10-07-2023 Estimated GFR (MDRD) Amer 116 mL/min >60 [facility] Comment on above: GFR Calc Estimated GFR (MDRD) Non-Af Amer 96 mL/min >60 [facility] Comment on above: Non- GFR Calc Thyroid Stimulating Hormone (TSH) 3.26 uIU/mL 0.358-3.74 [facility] Vitamin D 25-Hydroxy 68.9 ng/mL [facility] Comment on above: Vitamin D 25(OH) Sta tus Range Deficiency <20 ng/mL (50nmol/L) Insufficiency 20 - 30 ng/mL (50 - 75 nmol/L) Sufficiency 30 - 100 ng/mL (75 - 250 nmol/L) Toxicity >100 ng/mL (>250 nmol/L) Platelets bldOrdered By: Iraida Balderas on 10-07-2023 Platelets (Bld) [#/Vol] 177 10*3/uL 150-450 [facility] Serum or plasma albumin giovanny urement (mass/volume)Ordered By: Iraida Balderas on 10-07-2023 Albumin [Mass/Vol] 2.8 g/dL 3.2-5.0 [facility] Serum or plasma albumin/glob ulin mass ratioOrdered By: Iriada Balderas on 10-07-2023 Albumin/Globulin [Mass ratio] 0.8 {ratio} 0.9-2.4 [facility] Serum or plasma calcium giovanny urement (mass/volume)Ordered By: Iraida Balderas on 10-07-2023 Calcium [Mass/Vol] 9.2 mg/dL 8.5-10.1 [facility] Serum or plasma cholesterol in HDL measurement (mass/volume)Ordered By: Iraida Balderas on 10-07-2023 Cholesterol in HDL [Mass/Vol] 71 mg/dL >40 [facility] Comment on above: The drugs N-Acetylcy steine and Metamizole may falsely depress this assay. Reference Range HDL <40 mg/dL Low HDL Cholesterol HDL >or= 60 mg/dL High HDL Cholesterol Serum or plasma cholesterol in VLDL measurement (mass/volume)Ordered By: Iraida Balderas on 10-07-2023 Cholesterol in VLDL [Mass/Vol] 14 mg/dL 5-40 [facility] Serum or plasma creatinine m easurement (mass/volume)Ordered By: Iraida Balderas on 10-07-2023 Creatinine [Mass/Vol] 0.85 mg/dL 0.70-1.30 [facility] Comment on above: The validity of the calculated GFR & GFRAA in patients over 70 years has not been determined. Clinical correlation is essential. Serum or plasma low density lipoprotein (LDL) cholesterol measurement (mass/volume)Ordered By: Iraida Balderas on 10-07-2023 Cholesterol in LDL [Mass/Vol] 84 mg/dL 0-130 [facility] Serum or plasma urea nitroge n measurement (mass/volume)Ordered By: Iraida Balderas on 10-07-2023 Urea nitrogen [Mass/Vol] 11 mg/dL 7-18 [facility] Thin prep Papanicolaou smear with manual screeningOrdered By: Iraida Balderas on 10-07-2023 Thin prep Papanicolaou smear with manual screening 8 U/L 15-37 [facility] Thin prep Papanicolaou smear with manual screening 4 5-15 [facility] Absolute lymphocyte countOrd ered By: Jenn Perez on 09-29-2023 Lymphocytes Auto (Unsp spec) [#/Vol] 0.34 10*3/uL 0.83-4.51 [facility] Albumin Elph [Mass/Vol]Order ed By: Jenn Perez on 09-29-2023 Albumin [Mass/Vol] 3.0 g/dL 2.9-4.4 [facility] Basophil percentageOrdered B y: Jenn Perez on 09-29-2023 Basophils/100 WBC (Bld) 1.7 % 0-1 [facility] [facility] Bilirubin [Mass/Vol] 0.40 mg/dL 0.20-1.00 [facility] Comment on above: For patients on eltr ombopag therapy, use of Dimension Earle TBIL is not recommended. Chloride [Moles/Vol] 107 mmol/L 98-107 [facility] Eosinophils/100 WBC (Bld) 8.5 % 0-5 [facility] Glucose [Mass/Vol] 108 mg/dL 74-106 [facility] Comment on above: Fasting Glucose resu lt from 100 to 125 mg/dL suggests IMPAIRED HOMEOSTASIS per A.D.A. criteria. Neutrophils (Bld) [#/Vol] 2.5 10*3/uL 2.0-7.7 [facility] Neutrophils/100 WBC (Bld) 69.7 % 47-70 [facility] Potassium [Moles/Vol] 4.0 mmol/L 3.5-5.1 [facility] Protein [Mass/Vol] 5.9 g/dL 6.4-8.2 [facility] Sodium [Moles/Vol] 142 mmol/L 136-145 [facility] WBC (Bld) [#/Vol] 3.5 10*3/uL 4.4-11.0 [facility] Blood erythrocytes count (nu mber/volume)Ordered By: Jenn Perez on 09-29-2023 RBC (Bld) [#/Vol] 4.00 10*6/uL 4.6-6.2 [facility] Blood hemoglobin measurement (mass/volume)Ordered By: Jenn Perez on 09-29-2023 Hemoglobin (Bld) [Mass/Vol] 11.2 g/dL 13.0-16.5 [facility] Blood lymphocytes/100 leukoc ytesOrdered By: Jenn Perez on 09-29-2023 Lymphocytes/100 WBC (Bld) 9.6 % 19-41 [facility] Blood manual differential co mment interpretation (narrative result)Ordered By: Jenn Perez on 09-29-2023 Manual differential comment Johnny (Bld) [Interp] SCANNED [facility] Blood monocytes/100 leukocyt esOrdered By: Jenn Perez on 09-29-2023 Monocytes/100 WBC (Bld) 10.2 % 0-10 [facility] Blood platelet mean volumeOr dered By: Jenn Perez on 09-29-2023 Platelet mean volume (Bld) [Entitic vol] 11.6 fL 6.2-12.0 [facility] Determination of erythrocyte mean corpuscular volume (MCV)Ordered By: Jenn Perez on 09-29-2023 MCV (RBC) [Entitic vol] 92.5 fL 80-94 [facility] Hematocrit Auto (Bld) [Volum e fraction]Ordered By: Jenn Perez on 09-29-2023 Hematocrit (Bld) [Volume fraction] 37.0 % 40-54 [facility] Interpretation of serum or p lasma protein pattern by immunofixation (narrative resultOrdered By: Jenn Perez on 09-29-2023 Protein Fractions Immunofixation Johnny [Interp] 0.1 g/dL Not Observed [facility] Laboratory - Chemistry and C hemistry - challengeOrdered By: Jenn ePrez on 09-29-2023 ALP [Catalytic activity/Vol] 68 U/L 45-117 [facility] ALT [Catalytic activity/Vol] 16 U/L 16-61 [facility] CO2 [Moles/Vol] 29.0 mmol/L 21.0-32.0 [facility] Urea nitrogen/Creatinine [Mass ratio] 20.5 mg/mg 10-20 [facility] Laboratory - Hematology and Cell countsOrdered By: Jenn Perez on 09-29-2023 Erythrocyte distribution width (RBC) [Entitic vol] 56.1 fL 35.1-43.9 [facility] Erythrocyte distribution width (RBC) [Ratio] 16.7 % 11.6-14.6 [facility] Immature granulocytes/100 WBC (Bld) 0.300 % 0.0-0.9 [facility] Comment on above: IG% - Immature Granu locytes (promyelocytes, myelocytes and metamyelocytes) > 1% indicates that a LEFT SHIFT is Present. MCH (RBC) [Entitic mass] 28.0 pg 27.0-32.0 [facility] Nucleated RBC/100 WBC (Bld) [Ratio] 0 % 0-5 [facility] MCHC Auto (RBC) [Mass/Vol]Or dered By: Jenn Perez on 09-29-2023 MCHC (RBC) [Mass/Vol] 30.3 g/dL 32-36 [facility] Manual differential comment Johnny (Bld) [Interp]Ordered By: Jenn Perez on 09-29-2023 Differential Comment SCANNED [facility] No Panel InformationOrdered By: Jenn Perez on 09-29-2023 Addendum Document Comment . [facility] Comment on above: Protein electrophore sis scan will follow via computer,mail, or lean leader delivery. Estimated Creatinine Clearance Calc 63.21 ml/min [facility] Estimated GFR (MDRD) Amer 128 mL/min >60 [facility] Comment on above: GFR Calc Estimated GFR (MDRD) Non-Af Amer 106 mL/min >60 [facility] Comment on above: Non- GFR Calc Free Lambda Light Chains, Quant 11.1 mg/L 5.7-26.3 [facility] Pathologist review Johnny (Unsp spec) [Interp]Ordered By: Jenn Perez on 09-29-2023 Differential Pathologist's Review Reviewed [facility] Comment on above: Previous reported re sult: Lisseth contreras Edited by: DARRIN on 10/01/23:1041LeukopeniaNormocytic anemia.Clinical correlation necessary.Jordon De Jesus M.D. 10/01/23 AMENDED REPORT 10/01/23 1041 PATH REV previously reported as: Lisseth contreras Platelets bldOrdered By: Lam Perez on 09-29-2023 Platelets (Bld) [#/Vol] 159 10*3/uL 150-450 [facility] Review by pathologistOrdered By: Jenn Perez on 09-29-2023 Pathologist review Johnny (Unsp spec) [Interp] Reviewed [facility] Comment on above: Previous reported re sult: Lisseth contreras Edited by: RGOOD on 10/01/23:1041LeukopeniaNormocytic anemia.Clinical correlation necessary.Jordon De Jesus M.D. 10/01/23 AMENDED REPORT 10/01/23 1041 PATH REV previously reported as: Lisseth ben Serum [id number] measu rement by electrophoresisOrdered By: Jenn Perez on 09-29-2023 Alpha 1 globulin Elph [Mass/Vol] 0.3 g/dL 0.0-0.4 [facility] Alpha 1 globulin Elph [Mass/Vol] 0.9 g/dL 0.4-1.0 [facility] Serum globulin measurement ( mass/volume)Ordered By: Jenn Perez on 09-29-2023 Globulin (S) [Mass/Vol] 2.4 g/dL 2.2-3.9 [facility] Serum immunoglobulin kappa l ight chains/immunoglobulin lambda light chains mass ratioOrdered By: Jenn Perez on 09-29-2023 Immunoglobulin light chains.kappa/Immunoglobu dav light chains.lambda (S) [Mass ratio] 1.40 0.26-1.65 [facility] Comment on above: Performed at: [place] [id number] Director: Micky Arreola PhD, Phone: [phone] Serum or plasma IgA measurem ent (mass/volume)Ordered By: Jenn Perez on 09-29-2023 IgA [Mass/Vol] 70 mg/dL 61-437 [facility] Serum or plasma IgG measurem ent (mass/volume)Ordered By: Jenn Perez on 09-29-2023 IgG [Mass/Vol] 599 mg/dL [phone] [facility] Serum or plasma IgM measurem ent (mass/volume)Ordered By: Jenn Perez on 09-29-2023 IgM [Mass/Vol] 12 mg/dL 20-172 [facility] Comment on above: Result confirmed on concentration. Serum or plasma albumin giovanny urement (mass/volume)Or[facility]: [facility] 09-29-2023 Albumin [Mass/Vol] 2.9 g/dL 3.2-5.0 [facility] Serum or plasma albumin/glob ulin mass ratioOrdered By: [facility]23 Albumin/Globulin [Mass ratio] 1.0 {ratio} 0.9-2.4 [facility] Serum or plasma beta globuli n measurement by electrophoresis (mass/volume)Ordered By: [facility] Chris on 09-29-2023 Beta globulin Elph [Mass/Vol] 0.8 g/dL 0.7-1.3 [facility] Serum or plasma calcium giovanny urement (mass/volume)Ordered By: [facility] 09-29-2023 Calcium [Mass/Vol] 8.5 mg/dL 8.5-10.1 [facility] Serum or plasma creatinine m easurement (mass/volume)Ordered By: [facility] on 09-29-2023 Creatinine [Mass/Vol] 0.78 mg/dL 0.70-1.30 [facility] Comment on above: The validity of the calculated GFR & GFRAA in patients over 70 years has not been determined. Clinical correlation is essential. Serum or plasma gamma globul in measurement by electrophoresis (mass/volume)Ordered By: [facility] on 09-29-2023 Gamma globulin Elph [Mass/Vol] 0.6 g/dL 0.4-1.8 [facility] Serum or plasma immunoelectr ophoresis interpretation (nominal result)Ordered By: [facility] on 09-29-2023 Interpretation IEP [Interp] Comment . [facility] Comment on above: Immunofixation shows IgG monoclonal protein with kappalight chain specificity. PLEASE NOTE: Samples from patients receiving DARZALEX(R)(daratumumab) or SARCLISA(R)(isatuximab-irfc) treatmentcan appear as an IgG kappa and mask a complete response(CR). If this patient is receiving these therapies, thisIFE assay interference can be removed by ordering testnumber [id number], Daratumumab-Specific,Serum or [id number], Isatuximab-Specific,Serum and submitting a new sample for testing or bycalling the lab to add this test to the current sample. Serum or plasma immunoglobul in kappa light chains measurement (mass/volume)Ordered By: Jenn Perez on 09-29-2023 Immunoglobulin light chains.kappa [Mass/Vol] 15.5 mg/L 3.3-19.4 [facility] Serum or plasma urea nitroge n measurement (mass/volume)Ordered By: Jenn Perez on 09-29-2023 Urea nitrogen [Mass/Vol] 16 mg/dL 7-18 [facility] Thin prep Papanicolaou smear with manual screeningOrdered By: Jenn Perez on 09-29-2023 Thin prep Papanicolaou smear with manual screening 13 U/L 15-37 [facility] Thin prep Papanicolaou smear with manual screening 6 5-15 [facility] Thin prep Papanicolaou smear with manual screening 1.3 0.7-1.7 [facility] Total protein bloodOrdered B y: Jenn Perez on 09-29-2023 Protein [Mass/Vol] 5.4 g/dL 6.0-8.5 [facility] CBC AND ELECTRONIC DIFFon Basophils (Bld) [#/Vol] 0.06 10*3/uL 0.00 - 0.09 K/uL [facility] Basophils/100 WBC (Bld) 1.1 % [facility] Differential cell count method Nom (Bld) Electronic Differential [facility] Eosinophils (Bld) [#/Vol] 0.19 10*3/uL 0.00 - 0.48 K/uL [facility] Eosinophils/100 WBC (Bld) 3.5 % [facility] Erythrocyte distribution width (RBC) [Ratio] 16.8 % High 10.9 - 14.3 % [facility] Hematocrit (Bld) [Volume fraction] 37.7 % Low 39.6 - 48.8 % [facility] Hemoglobin (Bld) [Mass/Vol] 11.4 g/dL Low 13.4 - 16.8 g/dL [facility] Immature granulocytes (Bld) [#/Vol] K/uL NINF - 0.07 K/uL [facility] Immature granulocytes/100 WBC (Bld) 0.6 % [facility] Interpretation and review of laboratory results Abnormal [facility] Lymphocytes (Bld) [#/Vol] 0.44 10*3/uL Low 0.83 - 3.57 K/uL [facility] Lymphocytes/100 WBC (Bld) 8.1 % [facility] MCH (RBC) [Entitic mass] 27.4 pg 26. 1 - 33.3 pg [facility] MCHC (RBC) [Mass/Vol] 30.2 g/dL Low 31.9 - 36.5 g/dL [facility] MCV (RBC) [Entitic vol] 90.6 fL 79.0 - 94.5 fL [facility] Monocytes (Bld) [#/Vol] 0.56 10*3/uL 0.24 - 0.93 K/uL [facility] Monocytes/100 WBC (Bld) 10.4 % [facility] Neutrophils (Bld) [#/Vol] 4.12 10*3/uL 1.57 - 6.19 K/uL [facility] Nucleated RBC/100 WBC (Bld) [Ratio] 0.0 % [facility] Platelet mean volume (Bld) [Entitic vol] 10.8 fL 8.7 - 12.3 fL [facility] Platelets (Bld) [#/Vol] 236 10*3/uL 146 - 337 K/uL [facility] RBC (Bld) [#/Vol] 4.16 10*6/uL Low [facility] Segmented neutrophils/100 WBC (Bld) 76.3 % [facility] WBC (Bld) [#/Vol] 5.40 10*3/uL 3.73 - 10.10 K/uL [facility] COMPREHENSIVE METABOLIC PANE [facility] 09-08-2023 Albumin [Mass/Vol] 3.6 g/dL 3.5 - 5.0 g/dL [facility] ALP [Catalytic activity/Vol] 49 U/L 32 - 126 U/L [facility] ALT [Catalytic activity/Vol] 15 U/L 10 - 52 U/L [facility] Anion gap [Moles/Vol] 8 mmol/L 7 - 17 mmol/L [facility] AST [Catalytic activity/Vol] 11 U/L 10 - 39 U/L [facility] Bilirubin [Mass/Vol] 0.4 mg/dL NINF - 1.5 mg/dL [facility] Calcium [Mass/Vol] 9.0 mg/dL 8.6 - 10. 5 mg/dL [facility] Chloride [Moles/Vol] 103 mmol/L 98 - 10 8 mmol/L [facility] CO2 [Moles/Vol] 32 mmol/L High 21 - 31 mmol/L [facility] Creatinine [Mass/Vol] 0.74 mg/dL 0.70 - 1.30 mg/dL [facility] eGFR, CKD-EPI, Male - PINF [facility] Comment on above: Reported eGFR is bas ed on the CKD-EPI 2020 equation using creatinine, age, and sex. Glucose [Mass/Vol] 75 mg/dL 70 - 99 mg/dL [facility] Interpretation and review of laboratory results Abnormal [facility] Osmolality Calc [Osmolality] 290 [facility] Potassium [Moles/Vol] 3.8 mmol/L 3.5 - 5.0 mmol/L [facility] Protein [Mass/Vol] 6.4 g/dL 6.4 - 8.3 g/dL [facility] Sodium [Moles/Vol] 139 mmol/L 135 - 145 mmol/L [facility] Urea nitrogen [Mass/Vol] 15 mg/dL 7 - 25 mg/dL [facility] Urea nitrogen/Creatinine [Mass ratio] 20 mg/mg [facility] IMMUNOGLOBULINS IGG IGA IGMO rdered By: Dutch Ratliff on 09-08-2023 IgA [Mass/Vol] 56 mg/dL Low 90 - 410 mg/dL [facility] IgG [Mass/Vol] 549 mg/dL Low 600 - 1560 mg/dL [facility] IgM [Mass/Vol] mg/dL Low 30 - 360 mg/dL [facility] Interpretation and review of laboratory results Abnormal [facility] SPE SERUM TOTAL PROTEINon Interpretation and review of laboratory results Abnormal [facility] Protein [Mass/Vol] 5.7 g/dL Low 6.4 - 8.3 g/dL [facility] Absolute lymphocyte countOrd ered By: Jenn Perez on 09-01-2023 Lymphocytes Auto (Unsp spec) [#/Vol] 0.31 10*3/uL 0.83-4.51 [facility] Albumin Elph [Mass/Vol]Order ed By: Jenn Perez on 09-01-2023 Albumin [Mass/Vol] 3.0 g/dL 2.9-4.4 [facility] Basophil percentageOrdered B y: Jenn Perez on 09-01-2023 Basophil percentage 3.2 mg/dL 2.5-4.9 [facility] Basophils/100 WBC (Bld) 0.6 % 0-1 [facility] Bilirubin [Mass/Vol] 0.30 mg/dL 0.20-1.00 [facility] Comment on above: For patients on eltr ombopag therapy, use of Dimension Earle TBIL is not recommended. Chloride [Moles/Vol] 104 mmol/L 98-107 [facility] Eosinophils/100 WBC (Bld) 1.5 % 0-5 [facility] Glucose [Mass/Vol] 109 mg/dL 74-106 [facility] Comment on above: Fasting Glucose resu lt from 100 to 125 mg/dL suggests IMPAIRED HOMEOSTASIS per A.D.A. criteria. Neutrophils (Bld) [#/Vol] 3.9 10*3/uL 2.0-7.7 [facility] Neutrophils/100 WBC (Bld) 82.2 % 47-70 [facility] Potassium [Moles/Vol] 4.2 mmol/L 3.5-5.1 [facility] Protein [Mass/Vol] 6.2 g/dL 6.4-8.2 [facility] Sodium [Moles/Vol] 141 mmol/L 136-145 [facility] WBC (Bld) [#/Vol] 4.8 10*3/uL 4.4-11.0 [facility] Blood erythrocytes count (nu mber/volume)Ordered By: Jenn Perez on 09-01-2023 RBC (Bld) [#/Vol] 4.02 10*6/uL 4.6-6.2 [facility] Blood hemoglobin measurement (mass/volume)Ordered By: Jenn Perez on 09-01-2023 Hemoglobin (Bld) [Mass/Vol] 11.2 g/dL 13.0-16.5 [facility] Blood lymphocytes/100 leukoc ytesOrdered By: Jenn Perez on 09-01-2023 Lymphocytes/100 WBC (Bld) 6.5 % 19-41 [facility] Blood manual differential co mment interpretation (narrative result)Ordered By: Jenn Perez on 09-01-2023 Manual differential comment Johnny (Bld) [Interp] COMMENT [facility] Comment on above: LYMPHOPENIA. Blood monocytes/100 leukocyt esOrdered By: Jenn Perez on 09-01-2023 Monocytes/100 WBC (Bld) 8.8 % 0-10 [facility] Blood platelet mean volumeOr dered By: Jenn Perez on 09-01-2023 Platelet mean volume (Bld) [Entitic vol] 9.9 fL 6.2-12.0 [facility] Determination of erythrocyte mean corpuscular volume (MCV)Ordered By: Jenn Perez on 09-01-2023 MCV (RBC) [Entitic vol] 89.8 fL 80-94 [facility] Hematocrit Auto (Bld) [Volum e fraction]Ordered By: Jenn Perez on 09-01-2023 Hematocrit (Bld) [Volume fraction] 36.1 % 40-54 [facility] Interpretation of serum or p lasma protein pattern by immunofixation (narrative resultOrdered By: Jenn Perez on 09-01-2023 Protein Fractions Immunofixation Johnny [Interp] 0.1 g/dL Not Observed [facility] - Chemistry and C hemistry - challengeOrdered By: Jenn Perez on 09-01-2023 ALP [Catalytic activity/Vol] 63 U/L 45-117 [facility] ALT [Catalytic activity/Vol] 14 U/L 16-61 [facility] CO2 [Moles/Vol] 31.0 mmol/L 21.0-32.0 [facility] Magnesium [Mass/Vol] 1.9 mg/dL 1.6-2.6 [facility] Urea nitrogen/Creatinine [Mass ratio] 23.0 mg/mg 10-20 [facility] - Hematology and Cell countsOrdered By: Jenn Perez on 09-01-2023 Erythrocyte distribution width (RBC) [Entitic vol] 54.0 fL 35.1-43.9 [facility] Erythrocyte distribution width (RBC) [Ratio] 16.4 % 11.6-14.6 [facility] Immature granulocytes/100 WBC (Bld) 0.400 % 0.0-0.9 [facility] Comment on above: IG% - Immature Granu locytes (promyelocytes, myelocytes and metamyelocytes) > 1% indicates that a LEFT SHIFT is Present. MCH (RBC) [Entitic mass] 27.9 pg 27.0-32.0 [facility] Nucleated RBC/100 WBC (Bld) [Ratio] 0 % 0-5 [facility] MCHC Auto (RBC) [Mass/Vol]Or dered By: Jenn Perez on 09-01-2023 MCHC (RBC) [Mass/Vol] 31.0 g/dL 32-36 [facility] No Panel InformationOrdered By: Jenn Perez on 09-01-2023 Addendum Document Comment . [facility] Comment on above: Protein electrophore sis scan will follow via computer,mail, or lean leader delivery. Estimated Creatinine Clearance Calc 63.21 ml/min [facility] Estimated GFR (MDRD) Amer 136 mL/min >60 [facility] Comment on above: GFR Calc Estimated GFR (MDRD) Non-Af Amer 112 mL/min >60 [facility] Comment on above: Non- GFR Calc Free Lambda Light Chains, Quant 11.5 mg/L 5.7-26.3 [facility] Platelets bldOrdered By: Lam yajaira Chris on 09-01-2023 Platelets (Bld) [#/Vol] 251 10*3/uL 150-450 [facility] Serum [id number] measu rement by electrophoresisOrdered By: Jenn Perez on 09-01-2023 Alpha 1 globulin Elph [Mass/Vol] 0.3 g/dL 0.0-0.4 [facility] Alpha 1 globulin Elph [Mass/Vol] 1.0 g/dL 0.4-1.0 [facility] Serum globulin measurement ( mass/volume)Ordered By: Jenn Perez on 09-01-2023 Globulin (S) [Mass/Vol] 2.5 g/dL 2.2-3.9 [facility] Serum immunoglobulin kappa l ight chains/immunoglobulin lambda light chains mass ratioOrdered By: Jenn Perez on 09-01-2023 Immunoglobulin light chains.kappa/Immunoglobu dav light chains.lambda (S) [Mass ratio] 1.60 0.26-1.65 [facility] Comment on above: Performed at: [place] [id number] Director: Micky Arreola PhD, Phone: [phone] Serum or plasma IgA measurem ent (mass/volume)Ordered By: Jenn Perez on 09-01-2023 IgA [Mass/Vol] 58 mg/dL 61-437 [facility] Serum or plasma IgG measurem ent (mass/volume)Ordered By: Jenn Peerz on 09-01-2023 IgG [Mass/Vol] 587 mg/dL 603-1613 [facility] Serum or plasma IgM measurem ent (mass/volume)Ordered By: Jenn Perez on 09-01-2023 IgM [Mass/Vol] 14 mg/dL 20-172 [facility] Comment on above: Result confirmed on concentration. Serum or plasma albumin giovanny urement (mass/volume)Ordered By: Jenn Perez on 09-01-2023 Albumin [Mass/Vol] 2.9 g/dL 3.2-5.0 [facility] Serum or plasma albumin/glob ulin mass ratioOrdered By: Jenn Perez on 09-01-2023 Albumin/Globulin [Mass ratio] 0.9 {ratio} 0.9-2.4 [facility] Serum or plasma beta globuli n measurement by electrophoresis (mass/volume)Ordered By: Jenn Perez on 09-01-2023 Beta globulin Elph [Mass/Vol] 0.7 g/dL 0.7-1.3 [facility] Serum or plasma calcium giovanny urement (mass/volume)Ordered By: Jenn Perez on 09-01-2023 Calcium [Mass/Vol] 8.7 mg/dL 8.5-10.1 [facility] Serum or plasma creatinine m easurement (mass/volume)Ordered By: Jenn Perez on 09-01-2023 Creatinine [Mass/Vol] 0.74 mg/dL 0.70-1.30 [facility] Comment on above: The validity of the calculated GFR & GFRAA in patients over 70 years has not been determined. Clinical correlation is essential. Serum or plasma gamma globul in measurement by electrophoresis (mass/volume)Ordered By: Jenn Perez on 09-01-2023 Gamma globulin Elph [Mass/Vol] 0.5 g/dL 0.4-1.8 [facility] Serum or plasma immunoelectr ophoresis interpretation (nominal result)Ordered By: Jenn Perez on 09-01-2023 Interpretation IEP [Interp] Comment . [facility] Comment on above: Immunofixation shows IgG monoclonal protein with kappalight chain specificity. PLEASE NOTE: Samples from patients receiving DARZALEX(R)(daratumumab) or SARCLISA(R)([facility]) treatmentcan appear as an IgG kappa and mask a complete response(CR). If this patient is receiving these therapies, thisIFE assay interference can be removed by ordering testnumber [id number], Daratumumab-Specific,Serum or [id number], Isatuximab-Specific,Serum and submitting a new sample for testing or bycalling the lab to add this test to the current sample. Serum or plasma immunoglobul in kappa light chains measurement (mass/volume)Ordered By: Jenn Perez on 09-01-2023 Immunoglobulin light chains.kappa [Mass/Vol] 18.4 mg/L 3.3-19.4 [facility] Serum or plasma urea nitroge n measurement (mass/volume)Ordered By: Jenn Perez on 09-01-2023 Urea nitrogen [Mass/Vol] 17 mg/dL 7-18 [facility] Thin prep Papanicolaou smear with manual screeningOrdered By: Jenn Perez on 09-01-2023 Thin prep Papanicolaou smear with manual screening 13 U/L 15-37 [facility] Thin prep Papanicolaou smear with manual screening 6 5-15 [facility] Thin prep Papanicolaou smear with manual screening 1.3 0.7-1.7 [facility] Total protein bloodOrdered B y: Jenn Perez on 09-01-2023 Protein [Mass/Vol] 5.5 g/dL 6.0-8.5 [facility] Absolute lymphocyte countOrd ered By: Tad Brooks on 08-30-2023 Lymphocytes Auto (Unsp spec) [#/Vol] 0.34 10*3/uL 0.83-4.51 [facility] Basophil percentageOrdered B y: Tad Brooks on 08-30-2023 Basophils/100 WBC (Bld) 0.8 % 0-1 [facility] Eosinophils/100 WBC (Bld) 8.3 % 0-5 [facility] Neutrophils (Bld) [#/Vol] 1.4 10*3/uL 2.0-7.7 [facility] Neutrophils/100 WBC (Bld) 59.4 % 47-70 [facility] WBC (Bld) [#/Vol] 2.4 10*3/uL 4.4-11.0 [facility] Blood erythrocytes count (nu mber/volume)Ordered By: Tad Brooks on 08-30-2023 RBC (Bld) [#/Vol] 3.66 10*6/uL 4.6-6.2 [facility] Blood hemoglobin measurement (mass/volume)Ordered By: Tad Brooks on 08-30-2023 Hemoglobin (Bld) [Mass/Vol] 10.0 g/dL 13.0-16.5 [facility] Blood lymphocytes/100 leukoc ytesOrdered By: [facility] on 08-30-2023 Lymphocytes/100 WBC (Bld) 14.1 % 19-41 [facility] Blood manual differential co mment interpretation (narrative result)Ordered By: [facility] on 08-30-2023 Manual differential comment Johnny (Bld) [Interp] COMMENT [facility] Comment on above: LYMPHOPENIA. Blood monocytes/100 leukocyt esOrdered By: [facility] on 08-30-2023 Monocytes/100 WBC (Bld) 16.6 % 0-10 [facility] Blood platelet mean volumeOr dered By: [facility] on 08-30-2023 Platelet mean volume (Bld) [Entitic vol] 11.8 fL 6.2-12.0 [facility] Determination of erythrocyte mean corpuscular volume (MCV)Ordered By: [facility] on 08-30-2023 MCV (RBC) [Entitic vol] 91.3 fL 80-94 [facility] Hematocrit Auto (Bld) [Volum e fraction]Ordered By: [facility] on 08-30-2023 Hematocrit (Bld) [Volume fraction] 33.4 % 40-54 [facility] - Hematology and Cell countsOrdered By: [facility] on 08-30-2023 Erythrocyte distribution width (RBC) [Entitic vol] 56.8 fL 35.1-43.9 [facility] Erythrocyte distribution width (RBC) [Ratio] 16.7 % 11.6-14.6 [facility] Immature granulocytes/100 WBC (Bld) 0.800 % 0.0-0.9 [facility] Comment on above: IG% - Immature Granu locytes (promyelocytes, myelocytes and metamyelocytes) > 1% indicates that a LEFT SHIFT is Present. MCH (RBC) [Entitic mass] 27.3 pg 27.0-32.0 [facility] Nucleated RBC/100 WBC (Bld) [Ratio] 0 % 0-5 [facility] MCHC Auto (RBC) [Mass/Vol]Or dered By: [facility] on 08-30-2023 MCHC (RBC) [Mass/Vol] 29.9 g/dL 32-36 [facility] Platelets bldOrdered By: Cheo Guy on 08-30-2023 Platelets (Bld) [#/Vol] 194 10*3/uL 150-450 [facility] Review by pathologistOrdered By: Jose Guy on 08-30-2023 Pathologist review Johnny (Unsp spec) [Interp] Reviewed [facility] Comment on above: Previous reported re sult: January ben Edited by: CLIFF on 08/31/23:1410Leukopenia, neutropenia and normocytic anemia.Jordon De Jesus M.D. 08/31/23 AMENDED REPORT 08/31/23 1410 PATH REV previously reported as: January ben Anaerobic cultureOrdered By: Te Shah on 08-26-2023 Bacteria identified Anaer cx Nom (Unsp spec) No anaerobic bacteria isolated. [facility] Bacteria identified Anaer cx Nom (Unsp spec) No anaerobic bacteria isolated. [facility] Bacteria identified Cx Nom ( Wound)Ordered By: Te Shah on 08-26-2023 Wound Culture Meth. resistant Stap h. aureus [facility] Wound Culture Meth. resistant Stap h. aureus [facility] Gram stain for investigation of transfusion reactionOrdered By: Te Shah on 08-26-2023 Microscopic observation Gram stain Nom (Unsp spec) [facility] Microscopic observation Gram stain Nom (Unsp spec) [facility] Basophil percentageOrdered B y: Iraida Andrey on 08-13-2023 Bilirubin [Mass/Vol] 0.30 mg/dL 0.20-1.00 [facility] Comment on above: For patients on eltr ombopag therapy, use of Dimension Earle TBIL is not recommended. Chloride [Moles/Vol] 107 mmol/L 98-107 [facility] Glucose [Mass/Vol] 101 mg/dL 74-106 [facility] Comment on above: Fasting Glucose resu lt from 100 to 125 mg/dL suggests IMPAIRED HOMEOSTASIS per A.D.A. criteria. Potassium [Moles/Vol] 3.9 mmol/L 3.5-5.1 [facility] Protein [Mass/Vol] 5.4 g/dL 6.4-8.2 [facility] Sodium [Moles/Vol] 142 mmol/L 136-145 [facility] WBC (Bld) [#/Vol] 3.3 10*3/uL 4.4-11.0 [facility] Blood erythrocytes count (nu mber/volume)Ordered By: Iraida Balderas on 08-13-2023 RBC (Bld) [#/Vol] 3.51 10*6/uL 4.6-6.2 [facility] Blood hemoglobin measurement (mass/volume)Ordered By: Iraida Balderas on 08-13-2023 Hemoglobin (Bld) [Mass/Vol] 9.8 g/dL 13.0-16.5 [facility] Blood platelet mean volumeOr dered By: Iraida Balderas on 08-13-2023 Platelet mean volume (Bld) [Entitic vol] 12.0 fL 6.2-12.0 [facility] Determination of erythrocyte mean corpuscular volume (MCV)Ordered By: Iraida Balderas on 08-13-2023 MCV (RBC) [Entitic vol] 91.2 fL 80-94 [facility] Hematocrit Auto (Bld) [Volum e fraction]Ordered By: Iraida Balderas on 08-13-2023 Hematocrit (Bld) [Volume fraction] 32.0 % 40-54 [facility] Laboratory - Chemistry and C hemistry - challengeOrdered By: Iraida Balderas on 08-13-2023 ALP [Catalytic activity/Vol] 53 U/L 45-117 [facility] ALT [Catalytic activity/Vol] 14 U/L 16-61 [facility] CO2 [Moles/Vol] 29.0 mmol/L 21.0-32.0 [facility] Globulin (S) [Mass/Vol] 2.7 g/dL 2.2-4.2 [facility] Urea nitrogen/Creatinine [Mass ratio] 16.8 mg/mg 10-20 [facility] Laboratory - Hematology and Cell countsOrdered By: Iraida Balderas on 08-13-2023 Erythrocyte distribution width (RBC) [Entitic vol] 59.4 fL 35.1-43.9 [facility] Erythrocyte distribution width (RBC) [Ratio] 17.7 % 11.6-14.6 [facility] MCH (RBC) [Entitic mass] 27.9 pg 27.0-32.0 [facility] MCHC Auto (RBC) [Mass/Vol]Or dered By: Iraida Balderas on 08-13-2023 MCHC (RBC) [Mass/Vol] 30.6 g/dL 32-36 [facility] No Panel InformationOrdered By: Iraida Balderas on 08-13-2023 Estimated GFR (MDRD) Amer 130 mL/min >60 [facility] Comment on above: GFR Calc Estimated GFR (MDRD) Non-Af Amer 107 mL/min >60 [facility] Comment on above: Non- GFR Calc Thyroid Stimulating Hormone (TSH) 2.79 uIU/mL 0.358-3.74 [facility] Platelets bldOrdered By: Iraida Balderas on 08-13-2023 Platelets (Bld) [#/Vol] 143 10*3/uL 150-450 [facility] Serum or plasma albumin giovanny urement (mass/volume)Ordered By: Iraida Balderas on 08-13-2023 Albumin [Mass/Vol] 2.7 g/dL 3.2-5.0 [facility] Serum or plasma albumin/glob ulin mass ratioOrdered By: Iraida Balderas on 08-13-2023 Albumin/Globulin [Mass ratio] 1.0 {ratio} 0.9-2.4 [facility] Serum or plasma calcium giovanny urement (mass/volume)Ordered By: Iraida Balderas on 08-13-2023 Calcium [Mass/Vol] 8.5 mg/dL 8.5-10.1 [facility] Serum or plasma creatinine m easurement (mass/volume)Ordered By: Iraida Balderas on 08-13-2023 Creatinine [Mass/Vol] 0.77 mg/dL 0.70-1.30 [facility] Comment on above: The validity of the calculated GFR & GFRAA in patients over 70 years has not been determined. Clinical correlation is essential. Serum or plasma transthyreti n measurement (mass/volume)Ordered By: Iraida Balderas on 08-13-2023 Prealbumin [Mass/Vol] 19.8 mg/dL 20.0-40.0 [facility] Serum or plasma urea nitroge n measurement (mass/volume)Ordered By: Iraida Balderas on 08-13-2023 Urea nitrogen [Mass/Vol] 13 mg/dL 7-18 [facility] Thin prep Papanicolaou smear with manual screeningOrdered By: Iraida Balderas on 08-13-2023 Thin prep Papanicolaou smear with manual screening 7 U/L 15-37 [facility] Thin prep Papanicolaou smear with manual screening 6 5-15 [facility] Basophil percentageOrdered B y: Iraida Balderas on 08-06-2023 Bilirubin [Mass/Vol] 0.30 mg/dL 0.20-1.00 [facility] Comment on above: For patients on eltr ombopag therapy, use of Dimension Earle TBIL is not recommended. Chloride [Moles/Vol] 106 mmol/L 98-107 [facility] Glucose [Mass/Vol] 119 mg/dL 74-106 [facility] Comment on above: Fasting Glucose resu lt from 100 to 125 mg/dL suggests IMPAIRED HOMEOSTASIS per A.D.A. criteria. Potassium [Moles/Vol] 4.2 mmol/L 3.5-5.1 [facility] Protein [Mass/Vol] 5.8 g/dL 6.4-8.2 [facility] Sodium [Moles/Vol] 140 mmol/L 136-145 [facility] WBC (Bld) [#/Vol] 10.8 10*3/uL 4.4-11.0 [facility] Blood erythrocytes count (nu mber/volume)Ordered By: Iraida Balderas on 08-06-2023 RBC (Bld) [#/Vol] 3.78 10*6/uL 4.6-6.2 [facility] Blood hemoglobin measurement (mass/volume)Ordered By: Iraida Balderas on 08-06-2023 Hemoglobin (Bld) [Mass/Vol] 10.4 g/dL 13.0-16.5 [facility] Blood platelet mean volumeOr dered By: Iraida Balderas on 08-06-2023 Platelet mean volume (Bld) [Entitic vol] 10.2 fL 6.2-12.0 [facility] Determination of erythrocyte mean corpuscular volume (MCV)Ordered By: Iraida Balderas on 08-06-2023 MCV (RBC) [Entitic vol] 90.2 fL 80-94 [facility] Hematocrit Auto (Bld) [Volum e fraction]Ordered By: Iraida Balderas on 08-06-2023 Hematocrit (Bld) [Volume fraction] 34.1 % 40-54 [facility] Laboratory - Chemistry and C hemistry - challengeOrdered By: Iraida Balderas on 08-06-2023 ALP [Catalytic activity/Vol] 52 U/L 45-117 [facility] ALT [Catalytic activity/Vol] 14 U/L 16-61 [facility] CO2 [Moles/Vol] 31.0 mmol/L 21.0-32.0 [facility] Globulin (S) [Mass/Vol] 2.9 g/dL 2.2-4.2 [facility] Urea nitrogen/Creatinine [Mass ratio] 25.0 mg/mg 10-20 [facility] Laboratory - Hematology and Cell countsOrdered By: Iraida Balderas on 08-06-2023 Erythrocyte distribution width (RBC) [Entitic vol] 57.7 fL 35.1-43.9 [facility] Erythrocyte distribution width (RBC) [Ratio] 17.5 % 11.6-14.6 [facility] MCH (RBC) [Entitic mass] 27.5 pg 27.0-32.0 [facility] MCHC Auto (RBC) [Mass/Vol]Or dered By: Iraida Balderas on 08-06-2023 MCHC (RBC) [Mass/Vol] 30.5 g/dL 32-36 [facility] No Panel InformationOrdered By: Iraida Balderas on 08-06-2023 Estimated GFR (MDRD) Amer 124 mL/min >60 [facility] Comment on above: GFR Calc Estimated GFR (MDRD) Non-Af Amer 103 mL/min >60 [facility] Comment on above: Non- GFR Calc Platelets bldOrdered By: Iraida Balderas on 08-06-2023 Platelets (Bld) [#/Vol] 223 10*3/uL 150-450 [facility] Serum or plasma albumin giovanny urement (mass/volume)Ordered By: Iraida Balderas on 08-06-2023 Albumin [Mass/Vol] 2.9 g/dL 3.2-5.0 [facility] Serum or plasma albumin/glob ulin mass ratioOrdered By: Iraida Balderas on 08-06-2023 Albumin/Globulin [Mass ratio] 1.0 {ratio} 0.9-2.4 [facility] Serum or plasma calcium giovanny urement (mass/volume)Ordered By: Iraida Baldreas on 08-06-2023 Calcium [Mass/Vol] 8.9 mg/dL 8.5-10.1 [facility] Serum or plasma creatinine m easurement (mass/volume)Ordered By: Iraida Balderas on 08-06-2023 Creatinine [Mass/Vol] 0.80 mg/dL 0.70-1.30 [facility] Comment on above: The validity of the calculated GFR & GFRAA in patients over 70 years has not been determined. Clinical correlation is essential. Serum or plasma urea nitroge n measurement (mass/volume)Ordered By: Iraida Balderas on 08-06-2023 Urea nitrogen [Mass/Vol] 20 mg/dL 7-18 [facility] Thin prep Papanicolaou smear with manual screeningOrdered By: Iraida Balderas on 08-06-2023 Thin prep Papanicolaou smear with manual screening 7 U/L 15-37 [facility] Thin prep Papanicolaou smear with manual screening 3 5-15 [facility] Absolute lymphocyte countOrd ered By: Jenn Perez on 08-04-2023 Lymphocytes Auto (Unsp spec) [#/Vol] 0.63 10*3/uL 0.83-4.51 [facility] Basophil percentageOrdered B y: Jenn Perez on 08-04-2023 Basophils/100 WBC (Bld) 0.4 % 0-1 [facility] Bilirubin [Mass/Vol] 0.30 mg/dL 0.20-1.00 [facility] Comment on above: For patients on eltr ombopag therapy, use of Dimension Earle TBIL is not recommended. Chloride [Moles/Vol] 104 mmol/L 98-107 [facility] Eosinophils/100 WBC (Bld) 4.4 % 0-5 [facility] Glucose [Mass/Vol] 102 mg/dL 74-106 [facility] Comment on above: Fasting Glucose resu lt from 100 to 125 mg/dL suggests IMPAIRED HOMEOSTASIS per A.D.A. criteria. Neutrophils (Bld) [#/Vol] 3.9 10*3/uL 2.0-7.7 [facility] Neutrophils/100 WBC (Bld) 73.5 % 47-70 [facility] Potassium [Moles/Vol] 4.1 mmol/L 3.5-5.1 [facility] Protein [Mass/Vol] 6.3 g/dL 6.4-8.2 [facility] Sodium [Moles/Vol] 138 mmol/L 136-145 [facility] WBC (Bld) [#/Vol] 5.3 10*3/uL 4.4-11.0 [facility] Blood erythrocytes count (nu mber/volume)Ordered By: Jenn Perez on 08-04-2023 RBC (Bld) [#/Vol] 4.00 10*6/uL 4.6-6.2 [facility] Blood hemoglobin measurement (mass/volume)Ordered By: Jenn Perez on 08-04-2023 Hemoglobin (Bld) [Mass/Vol] 11.0 g/dL 13.0-16.5 [facility] Blood lymphocytes/100 leukoc ytesOrdered By: Jenn Perez on 08-04-2023 Lymphocytes/100 WBC (Bld) 12.0 % 19-41 [facility] Blood monocytes/100 leukocyt esOrdered By: Jenn Perez on 08-04-2023 Monocytes/100 WBC (Bld) 9.5 % 0-10 [facility] Blood platelet mean volumeOr dered By: Jenn Perez on 08-04-2023 Platelet mean volume (Bld) [Entitic vol] 10.3 fL 6.2-12.0 [facility] Determination of erythrocyte mean corpuscular volume (MCV)Ordered By: Jenn Perez on 08-04-2023 MCV (RBC) [Entitic vol] 90.0 fL 80-94 [facility] Hematocrit Auto (Bld) [Volum e fraction]Ordered By: Jenn Perez on 08-04-2023 Hematocrit (Bld) [Volume fraction] 36.0 % 40-54 [facility] Laboratory - Chemistry and C hemistry - challengeOrdered By: Jenn Perez on 08-04-2023 ALP [Catalytic activity/Vol] 61 U/L 45-117 [facility] ALT [Catalytic activity/Vol] 19 U/L 16-61 [facility] CO2 [Moles/Vol] 32.0 mmol/L 21.0-32.0 [facility] Globulin (S) [Mass/Vol] 3.2 g/dL 2.2-4.2 [facility] Urea nitrogen/Creatinine [Mass ratio] 14.4 mg/mg 10-20 [facility] Laboratory - Hematology and Cell countsOrdered By: Jenn Perez on 08-04-2023 Erythrocyte distribution width (RBC) [Entitic vol] 57.2 fL 35.1-43.9 [facility] Erythrocyte distribution width (RBC) [Ratio] 17.4 % 11.6-14.6 [facility] Immature granulocytes/100 WBC (Bld) 0.200 % 0.0-0.9 [facility] Comment on above: IG% - Immature Granu locytes (promyelocytes, myelocytes and metamyelocytes) > 1% indicates that a LEFT SHIFT is Present. MCH (RBC) [Entitic mass] 27.5 pg 27.0-32.0 [facility] Nucleated RBC/100 WBC (Bld) [Ratio] 0 % 0-5 [facility] MCHC Auto (RBC) [Mass/Vol]Or dered By: Jenn Perez on 08-04-2023 MCHC (RBC) [Mass/Vol] 30.6 g/dL 32-36 [facility] No Panel InformationOrdered By: Jenn Perez on 08-04-2023 Estimated GFR (MDRD) Amer 108 mL/min >60 [facility] Comment on above: GFR Calc Estimated GFR (MDRD) Non-Af Amer 89 mL/min >60 [facility] Comment on above: Non- GFR Calc Platelets bldOrdered By: Lam Perez on 08-04-2023 Platelets (Bld) [#/Vol] 205 10*3/uL 150-450 [facility] Serum or plasma albumin giovanny urement (mass/volume)Ordered By: Jenn Perez on 08-04-2023 Albumin [Mass/Vol] 3.1 g/dL 3.2-5.0 [facility] Serum or plasma albumin/glob ulin mass ratioOrdered By: Jenn Perez on 08-04-2023 Albumin/Globulin [Mass ratio] 1.0 {ratio} 0.9-2.4 [facility] Serum or plasma calcium giovanny urement (mass/volume)Ordered By: Jenn Perez on 08-04-2023 Calcium [Mass/Vol] 9.2 mg/dL 8.5-10.1 [facility] Serum or plasma creatinine m easurement (mass/volume)Ordered By: Jenn Perez on 08-04-2023 Creatinine [Mass/Vol] 0.90 mg/dL 0.70-1.30 [facility] Comment on above: The validity of the calculated GFR & GFRAA in patients over 70 years has not been determined. Clinical correlation is essential. Serum or plasma urea nitroge n measurement (mass/volume)Ordered By: Jenn Perez on 08-04-2023 Urea nitrogen [Mass/Vol] 13 mg/dL 7-18 [facility] Thin prep Papanicolaou smear with manual screeningOrdered By: [facility]2023 Thin prep Papanicolaou smear with manual screening 9 U/L 15-37 [facility] Thin prep Papanicolaou smear with manual screening 2 5-15 [facility] Absolute lymphocyte countOrd ered By: Jenn Perez on 2023 Lymphocytes Auto (Unsp spec) [#/Vol] 0.63 10*3/uL 0.83-4.51 [facility] Albumin Elph [Mass/Vol]Order ed By: Jenn Perez on 2023 Albumin [Mass/Vol] 2.8 g/dL 2.9-4.4 [facility] Basophil percentageOrdered B y: Jenn Perez on 2023 Basophils/100 WBC (Bld) 0.3 % 0-1 [facility] Bilirubin [Mass/Vol] 0.30 mg/dL 0.20-1.00 [facility] Comment on above: For patients on eltr ombopag therapy, use of Dimension [place]le TBIL is not recommended. Chloride [Moles/Vol] 106 mmol/L 98-107 [facility] Eosinophils/100 WBC (Bld) 0.7 % 0-5 [facility] Glucose [Mass/Vol] 88 mg/dL 74-106 [facility] Neutrophils (Bld) [#/Vol] 5.3 10*3/uL 2.0-7.7 [facility] Neutrophils/100 WBC (Bld) 74.9 % 47-70 [facility] Potassium [Moles/Vol] 3.7 mmol/L 3.5-5.1 [facility] Protein [Mass/Vol] 6.0 g/dL 6.4-8.2 [facility] Sodium [Moles/Vol] 142 mmol/L 136-145 [facility] WBC (Bld) [#/Vol] 7.1 10*3/uL 4.4-11.0 [facility] Blood erythrocytes count (nu mber/volume)Ordered By: Jenn Perez on 2023 RBC (Bld) [#/Vol] 3.93 10*6/uL 4.6-6.2 [facility] Blood hemoglobin measurement (mass/volume)Ordered By: Jenn Perez on 2023 Hemoglobin (Bld) [Mass/Vol] 10.8 g/dL 13.0-16.5 [facility] Blood lymphocytes/100 leukoc ytesOrdered By: Jenn Perez on 2023 Lymphocytes/100 WBC (Bld) 8.9 % 19-41 [facility] Blood monocytes/100 leukocyt esOrdered By: Jenn Perez on 2023 Monocytes/100 WBC (Bld) 14.6 % 0-10 [facility] Blood platelet mean volumeOr dered By: eJnn Perez on 2023 Platelet mean volume (Bld) [Entitic vol] 9.9 fL 6.2-12.0 [facility] Determination of erythrocyte mean corpuscular volume (MCV)Ordered By: Jenn Perez on 2023 MCV (RBC) [Entitic vol] 91.9 fL 80-94 [facility] Hematocrit Auto (Bld) [Volum e fraction][facility] 2023 Hematocrit (Bld) [Volume fraction] 36.1 % 40-54 [facility] Interpretation of serum or p lasma protein pattern by immunofixation (narrative resultOrdered By: Jenn Perez on 2023 Protein Fractions Immunofixation Johnny [Interp] 0.2 g/dL Not Observed [facility] Iron (Unsp spec) [Mass/Mass] Ordered By: Jenn Perez on 2023 Iron [Mass/Vol] 27 ug/dL Low 65-175 [facility] Iron measurement (mass/mass) Ordered By[facility] 2023 Iron (Unsp spec) [Mass/Mass] 27 ug/dL 65-175 [facility] Iron saturation [Mass fracti on]Ordered By: [facility] Chris on 2023 Iron Saturation 10.6 % Low 15.0-55.0 [facility] Laboratory - Chemistry and C hemistry - challengeOrdered By: [facility] Chris on 2023 ALP [Catalytic activity/Vol] 66 U/L 45-117 [facility] ALT [Catalytic activity/Vol] 30 U/L 16-61 [facility] CO2 [Moles/Vol] 33.0 mmol/L 21.0-32.0 [facility] Cobalamin (Vitamin B12) [Mass/Vol] 387 pg/mL 211-911 [facility] Urea nitrogen/Creatinine [Mass ratio] 18.7 mg/mg 10-20 [facility] Laboratory - Hematology and Cell countsOrdered By: [facility] on 2023 Erythrocyte distribution width (RBC) [Entitic vol] 61.8 fL 35.1-43.9 [facility] Erythrocyte distribution width (RBC) [Ratio] 18.2 % 11.6-14.6 [facility] Immature granulocytes/100 WBC (Bld) 0.600 % 0.0-0.9 [facility] Comment on above: IG% - Immature Granu locytes (promyelocytes, myelocytes and metamyelocytes) > 1% indicates that a LEFT SHIFT is Present. MCH (RBC) [Entitic mass] 27.5 pg 27.0-32.0 [facility] Nucleated RBC/100 WBC (Bld) [Ratio] 0 % 0-5 [facility] MCHC Auto (RBC) [Mass/Vol]Or dered By: Jenn Perez on 2023 MCHC (RBC) [Mass/Vol] 29.9 g/dL 32-36 [facility] No Panel InformationOrdered By: Jenn Perez on 2023 Addendum Document Comment . [facility] Comment on above: Protein electrophore sis scan will follow via computer,mail, or lean leader delivery. Estimated GFR (MDRD) Amer 134 mL/min >60 [facility] Comment on above: GFR Calc Estimated GFR (MDRD) Non-Af Amer 111 mL/min >60 [facility] Comment on above: Non- GFR Calc Free Lambda Light Chains, Quant 4.1 mg/L 5.7-26.3 [facility] Total Iron Binding Capacity 254 ug/dL 250-450 [facility] Platelets bldOrdered By: Lam Perez on 2023 Platelets (Bld) [#/Vol] 195 10*3/uL 150-450 [facility] Serum [id number] measu rement by electrophoresisOrdered By: Jenn Perez on 2023 Alpha 1 globulin Elph [Mass/Vol] 0.3 g/dL 0.0-0.4 [facility] Alpha 1 globulin Elph [Mass/Vol] 1.0 g/dL 0.4-1.0 [facility] Serum globulin measurement ( mass/volume)Ordered By: Jenn Perez on 2023 Globulin (S) [Mass/Vol] 2.5 g/dL 2.2-3.9 [facility] Serum immunoglobulin kappa l ight chains/immunoglobulin lambda light chains mass ratioOrdered By: Jenn Perez on 2023 Immunoglobulin light chains.kappa/Immunoglobu dav light chains.lambda (S) [Mass ratio] 1.71 0.26-1.65 [facility] Comment on above: Performed at: [address] [id number] Director: Micky Arreola PhD, Phone: [phone] Serum or plasma IgA measurem ent (mass/volume)Ordered By: Jenn Perez on 2023 IgA [Mass/Vol] 34 mg/dL 61-437 [facility] Comment on above: Result confirmed on concentration. Serum or plasma IgG measurem ent (mass/volume)Ordered By: Jenn Perez on 2023 IgG [Mass/Vol] 488 mg/dL 603-1613 [facility] Serum or plasma IgM measurem ent (mass/volume)Ordered By: Jenn Perez on 2023 IgM [Mass/Vol] 6 mg/dL 20-172 [facility] Comment on above: Result confirmed on concentration. Serum or plasma albumin giovanny urement (mass/volume)Ordered By: [facility] 2023 Albumin [Mass/Vol] 2.7 g/dL 3.2-5.0 [facility] Serum or plasma albumin/glob ulin mass ratioOrdered By: Jenn Perez on 2023 Albumin/Globulin [Mass ratio] 0.8 {ratio} 0.9-2.4 [facility] Serum or plasma beta globuli n measurement by electrophoresis (mass/volume)Ordered By: [facility] on 2023 Beta globulin Elph [Mass/Vol] 0.8 g/dL 0.7-1.3 [facility] Serum or plasma calcium giovanny urement (mass/volume)Ordered By: Jenn Perez on 2023 Calcium [Mass/Vol] 8.5 mg/dL 8.5-10.1 [facility] Serum or plasma creatinine m easurement (mass/volume)Ordered By: [facility] on 2023 Creatinine [Mass/Vol] 0.75 mg/dL 0.70-1.30 [facility] Comment on above: The validity of the calculated GFR & GFRAA in patients over 70 years has not been determined. Clinical correlation is essential. Serum or plasma ferritin blake surement (mass/volume)Ordered By: Jenn Perez on 2023 Ferritin [Mass/Vol] 115 ng/mL 26-388 [facility] Serum or plasma gamma globul in measurement by electrophoresis (mass/volume)Ordered By: Jenn Perez on 2023 Gamma globulin Elph [Mass/Vol] 0.4 g/dL 0.4-1.8 [facility] Serum or plasma immunoelectr ophoresis interpretation (nominal result)Ordered By: Jenn Perez on 2023 Interpretation IEP [Interp] Comment . [facility] Comment on above: Immunofixation shows IgG monoclonal protein with kappalight chain specificity. PLEASE NOTE: Samples from patients receiving DARZALEX(R)(daratumumab) or SARCLISA(R)(isatuximab-[facility]) treatmentcan appear as an IgG kappa and mask a complete response(CR). If this patient is receiving these therapies, thisIFE assay interference can be removed by ordering testnumber [id number], Daratumumab-Specific,Serum or [id number], Isatuximab-Specific,Serum and submitting a new sample for testing or bycalling the lab to add this test to the current sample. Serum or plasma immunoglobul in kappa light chains measurement (mass/volume)Ordered By: Jenn Peerz on 2023 Immunoglobulin light chains.kappa [Mass/Vol] 7.0 mg/L 3.3-19.4 [facility] Serum or plasma iron saturat ion measurement (mass fraction)Ordered By: Jenn Perez on 2023 Iron saturation [Mass fraction] 10.6 % 15.0-55.0 [facility] Serum or plasma urea nitroge n measurement (mass/volume)Ordered By: Jenn Perez on 2023 Urea nitrogen [Mass/Vol] 14 mg/dL 7-18 [facility] Thin prep Papanicolaou smear with manual screeningOrdered By: Jenn Perez on 2023 Thin prep Papanicolaou smear with manual screening 7 U/L 15-37 [facility] Thin prep Papanicolaou smear with manual screening 3 5-15 [facility] Thin prep Papanicolaou smear with manual screening 1.2 0.7-1.7 [facility] Total protein bloodOrdered B y: Jenn Perez on 2023 Protein [Mass/Vol] 5.3 g/dL 6.0-8.5 [facility] Basophil percentageOrdered B y: Iraida Balderas on 07-07-2023 Bilirubin [Mass/Vol] 0.20 mg/dL 0.20-1.00 [facility] Comment on above: For patients on eltr ombopag therapy, use of Dimension Earle TBIL is not recommended. Chloride [Moles/Vol] 103 mmol/L 98-107 [facility] Cholesterol [Mass/Vol] 144 mg/dL <200 [facility] Comment on above: <200 mg/dL Desirable 200-240 mg/dL Borderline >240 mg/dL High Risk Glucose [Mass/Vol] 97 mg/dL 74-106 [facility] Potassium [Moles/Vol] 3.7 mmol/L 3.5-5.1 [facility] Protein [Mass/Vol] 5.6 g/dL 6.4-8.2 [facility] Sodium [Moles/Vol] 140 mmol/L 136-145 [facility] Triglyceride [Mass/Vol] 68 mg/dL <199 [facility] Comment on above: The drugs N-Acetylcy steine and Metamizole may falsely depress this assay.Serum Triglycerides Reference Interval Normal <150 mg/dL Borderline high 150 - 199 mg/dL High 200 - 499 mg/dL Very High > or = 500 mg/dL WBC (Bld) [#/Vol] 4.9 10*3/uL 4.4-11.0 [facility] Blood erythrocytes count (nu mber/volume)Ordered By: Iraida Balderas on 07-07-2023 RBC (Bld) [#/Vol] 3.80 10*6/uL 4.6-6.2 [facility] Blood hemoglobin measurement (mass/volume)Ordered By: Iraida Balderas on 07-07-2023 Hemoglobin (Bld) [Mass/Vol] 10.5 g/dL 13.0-16.5 [facility] Blood platelet mean volumeOr dered By: Iraida Balderas on 07-07-2023 Platelet mean volume (Bld) [Entitic vol] 11.3 fL 6.2-12.0 [facility] Determination of erythrocyte mean corpuscular volume (MCV)Ordered By: Iraida Balderas on 07-07-2023 MCV (RBC) [Entitic vol] 92.1 fL 80-94 [facility] Hematocrit Auto (Bld) [Volum e fraction]Ordered By: Iraida Balderas on 07-07-2023 Hematocrit (Bld) [Volume fraction] 35.0 % 40-54 [facility] Laboratory - Chemistry and C hemistry - challengeOrdered By: Iraida Balderas on 07-07-2023 ALP [Catalytic activity/Vol] 57 U/L 45-117 [facility] ALT [Catalytic activity/Vol] 35 U/L 16-61 [facility] CO2 [Moles/Vol] 31.0 mmol/L 21.0-32.0 [facility] Free T4 [Mass/Vol] 1.24 ng/dL 0.76-1.46 [facility] Globulin (S) [Mass/Vol] 3.0 g/dL 2.2-4.2 [facility] Urea nitrogen/Creatinine [Mass ratio] 18.0 mg/mg 10-20 [facility] Laboratory - Hematology and Cell countsOrdered By: Iraida Balderas on 07-07-2023 Erythrocyte distribution width (RBC) [Entitic vol] 63.1 fL 35.1-43.9 [facility] Erythrocyte distribution width (RBC) [Ratio] 18.5 % 11.6-14.6 [facility] MCH (RBC) [Entitic mass] 27.6 pg 27.0-32.0 [facility] MCHC Auto (RBC) [Mass/Vol]Or dered By: Iraida Balderas on 07-07-2023 MCHC (RBC) [Mass/Vol] 30.0 g/dL 32-36 [facility] No Panel InformationOrdered By: Iraida Balderas on 07-07-2023 Estimated GFR (MDRD) Amer 140 mL/min >60 [facility] Comment on above: GFR Calc Estimated GFR (MDRD) Non-Af Amer 115 mL/min >60 [facility] Comment on above: Non- GFR Calc Thyroid Stimulating Hormone (TSH) 8.69 uIU/mL 0.358-3.74 [facility] Vitamin D 25-Hydroxy 79.7 ng/mL [facility] Comment on above: Vitamin D 25(OH) Sta tus Range Deficiency <20 ng/mL (50nmol/L) Insufficiency 20 - 30 ng/mL (50 - 75 nmol/L) Sufficiency 30 - 100 ng/mL (75 - 250 nmol/L) Toxicity >100 ng/mL (>250 nmol/L) Platelets bldOrdered By: Iraida Balderas on 07-07-2023 Platelets (Bld) [#/Vol] 181 10*3/uL 150-450 [facility] Serum or plasma albumin giovanny urement (mass/volume)Ordered By: Iraida Balderas on 07-07-2023 Albumin [Mass/Vol] 2.6 g/dL 3.2-5.0 [facility] Serum or plasma albumin/glob ulin mass ratioOrdered By: Iraida Balderas on 07-07-2023 Albumin/Globulin [Mass ratio] 0.9 {ratio} 0.9-2.4 [facility] Serum or plasma calcium giovanny urement (mass/volume)Ordered By: Iraida Balderas on 07-07-2023 Calcium [Mass/Vol] 8.4 mg/dL 8.5-10.1 [facility] Serum or plasma cholesterol in HDL measurement (mass/volume)Ordered By: Iraida Balderas on 07-07-2023 Cholesterol in HDL [Mass/Vol] 57 mg/dL >40 [facility] Comment on above: The drugs N-Acetylcy steine and Metamizole may falsely depress this assay. Reference Range HDL <40 mg/dL Low HDL Cholesterol HDL >or= 60 mg/dL High HDL Cholesterol Serum or plasma cholesterol in VLDL measurement (mass/volume)Ordered By: Iraida Balderas on 07-07-2023 Cholesterol in VLDL [Mass/Vol] 14 mg/dL 5-40 [facility] Serum or plasma creatinine m easurement (mass/volume)Ordered By: Iraida Balderas on 07-07-2023 Creatinine [Mass/Vol] 0.72 mg/dL 0.70-1.30 [facility] Comment on above: The validity of the calculated GFR & GFRAA in patients over 70 years has not been determined. Clinical correlation is essential. Serum or plasma low density lipoprotein (LDL) cholesterol measurement (mass/volume)Ordered By: Iraida Balderas on 07-07-2023 Cholesterol in LDL [Mass/Vol] 73 mg/dL 0-130 [facility] Serum or plasma urea nitroge n measurement (mass/volume)Ordered By: Iraida Balderas on 07-07-2023 Urea nitrogen [Mass/Vol] 13 mg/dL 7-18 [facility] Thin prep Papanicolaou smear with manual screeningOrdered By: Iraida Balderas on 07-07-2023 Thin prep Papanicolaou smear with manual screening 16 U/L 15-37 [facility] Thin prep Papanicolaou smear with manual screening 6 5-15 [facility] CBC AND ELECTRONIC DIFFon Basophils (Bld) [#/Vol] 0.10 10*3/uL High 0.00 - 0.09 K/uL [facility] Basophils/100 WBC (Bld) 2.1 % [facility] Differential cell count method Nom (Bld) Electronic Differential [facility] Eosinophils (Bld) [#/Vol] 0.18 10*3/uL 0.00 - 0.48 K/uL [facility] Eosinophils/100 WBC (Bld) 3.7 % [facility] Erythrocyte distribution width (RBC) [Ratio] 19.6 % High 10.9 - 14.3 % [facility] Hematocrit (Bld) [Volume fraction] 38.6 % Low 39.6 - 48.8 % [facility] Hemoglobin (Bld) [Mass/Vol] 11.9 g/dL Low 13.4 - 16.8 g/dL [facility] Immature granulocytes (Bld) [#/Vol] K/uL NINF - 0.07 K/uL [facility] Immature granulocytes/100 WBC (Bld) 0.4 % [facility] Interpretation and review of laboratory results Abnormal [facility] Lymphocytes (Bld) [#/Vol] 0.53 10*3/uL Low 0.83 - 3.57 K/uL [facility] Lymphocytes/100 WBC (Bld) 10.9 % [facility] MCH (RBC) [Entitic mass] 25.4 pg Low 26. 1 - 33.3 pg [facility] MCHC (RBC) [Mass/Vol] 30.8 g/dL Low 31.9 - 36.5 g/dL [facility] MCV (RBC) [Entitic vol] 82.3 fL 79.0 - 94.5 fL [facility] Comment on above: Results inconsistent with previous results Monocytes (Bld) [#/Vol] 0.30 10*3/uL 0.24 - 0.93 K/uL [facility] Monocytes/100 WBC (Bld) 6.2 % [facility] Neutrophils (Bld) [#/Vol] 3.74 10*3/uL 1.57 - 6.19 K/uL [facility] Nucleated RBC/100 WBC (Bld) [Ratio] 0.0 % [facility] Platelet mean volume (Bld) [Entitic vol] 10.3 fL 8.7 - 12.3 fL [facility] Platelets (Bld) [#/Vol] 204 10*3/uL 146 - 337 K/uL [facility] RBC (Bld) [#/Vol] 4.69 10*6/uL [facility] Segmented neutrophils/100 WBC (Bld) 76.7 % [facility] WBC (Bld) [#/Vol] 4.87 10*3/uL 3.73 - 10.10 K/uL [facility] COMPREHENSIVE METABOLIC PANE Jim 04-14-2023 Albumin [Mass/Vol] 3.8 g/dL 3.5 - 5.0 g/dL [facility] ALP [Catalytic activity/Vol] 59 U/L 32 - 126 U/L [facility] ALT [Catalytic activity/Vol] 35 U/L 10 - 52 U/L [facility] Anion gap [Moles/Vol] 12 mmol/L 7 - 17 mmol/L [facility] AST [Catalytic activity/Vol] 19 U/L 10 - 39 U/L [facility] Bilirubin [Mass/Vol] 0.2 mg/dL NINF - 1.5 mg/dL [facility] Calcium [Mass/Vol] 8.9 mg/dL 8.6 - 10. 5 mg/dL [facility] Chloride [Moles/Vol] 102 mmol/L 98 - 10 8 mmol/L [facility] CO2 [Moles/Vol] 27 mmol/L 21 - 31 mmol/L [facility] Creatinine [Mass/Vol] 0.81 mg/dL 0.70 - 1.30 mg/dL [facility] GFR/1.73 sq M.predicted CKD-EPI (S/P/Bld) [Vol rate/Area] - PINF [facility] Comment on above: Reported eGFR is bas ed on the CKD-EPI 2020 equation using creatinine, age, and sex. Glucose [Mass/Vol] 92 mg/dL 70 - 99 mg/dL [facility] Osmolality Calc [Osmolality] 287 [facility] Potassium [Moles/Vol] 4.1 mmol/L 3.5 - 5.0 mmol/L [facility] Protein [Mass/Vol] 6.7 g/dL 6.4 - 8.3 g/dL [facility] Sodium [Moles/Vol] 137 mmol/L 135 - 145 mmol/L [facility] Urea nitrogen [Mass/Vol] 14 mg/dL 7 - 25 mg/dL [facility] Urea nitrogen/Creatinine [Mass ratio] 17 mg/mg [facility] IMMUNOGLOBULINS IGG IGA IGMO rdered By: Sonia Rosales on 04-14-2023 IgA [Mass/Vol] 60 mg/dL Low 90 - 410 mg/dL [facility] IgG [Mass/Vol] 797 mg/dL 600 - 1560 mg/dL [facility] IgM [Mass/Vol] mg/dL Low 30 - 360 mg/dL [facility] Interpretation and review of laboratory results Abnormal [facility] SPE SERUM TOTAL PROTEINon Interpretation and review of laboratory results Abnormal [facility] Protein [Mass/Vol] 6.2 g/dL Low 6.4 - 8.3 g/dL [facility] Blood type and Indirect anti body screen panel (Bld)on 03-02-2023 ABO group Nom (Bld) AB Normal [facility] Comment on above: Performed By: #### 3 4532-2 ####[address] [address] Rh Type Positive Normal [facility] Comment on above: Performed By: #### 3 4532-2 ####[address] [address] Basic metabolic 2000 panelon 02-12-2023 Anion gap [Moles/Vol] 8 mmol/L Normal 6-18 [facility] Comment on above: Performed By: #### 2 4321-2 ####[address] [address] Calcium [Mass/Vol] 9.1 mg/dL Normal 8.9-10.3 [facility] Comment on above: Performed By: #### 2 4321-2 ####[address] [address] Chloride [Moles/Vol] 99 mmol/L Normal 98-107 [facility] Comment on above: Performed By: #### 2 4321-2 ####[address] [address] CO2 [Moles/Vol] 30 mmol/L Normal 22-32 [facility] Comment on above: Performed By: #### 2 4321-2 ####[address] [address] Creatinine [Mass/Vol] 0.65 mg/dL Normal 0.60-1.30 [facility] Comment on above: Performed By: #### 2 4321-2 ####[address] [address] GFR/1.73 sq M.predicted among non-blacks MDRD (S/P/Bld) [Vol rate/Area] 105 mL/min/{1.73_m2} Normal >=60 [facility] Comment on above: Result Comment: Effe ctive July 05, 2022, calculation based on the?Chronic Kidney Disease Epidemiology Collaboration (CKD-EPI) equation refit?without adjustment for race. Performed By: #### 2 4321-2 ####[address] [address] Glucose [Mass/Vol] 97 mg/dL Normal 70-99 [facility] Comment on above: Performed By: #### 2 4321-2 ####[address] [address] Potassium [Moles/Vol] 3.7 mmol/L Normal 3.6-5.1 [facility] Comment on above: Performed By: #### 2 4321-2 ####[address] [address] Sodium [Moles/Vol] 137 mmol/L Normal 136-145 [facility] Comment on above: Performed By: #### 2 4321-2 ####[address] [address] Urea nitrogen [Mass/Vol] 12 mg/dL Normal 8-20 [facility] Comment on above: Performed By: #### 2 4321-2 ####[address] [address] Urea nitrogen/Creatinine [Mass ratio] 18.5 mg/mg Normal 12.0-20.0 [facility] Comment on above: Performed By: #### 2 4321-2 ####[facility] [id number] [place] [address] IR INSERT TUNNELED CVAD W MADRIGAL BQ PORT MORE 5YRS LEFTon 02-12-2023 IR INSERT TUNNELED CVAD W SUBQ PORT MORE 5YRS LEFT Chest port placement Staff: MD Palmer Fluoro Time: 3.9 min Complications: None EBL: <5 ml Medications: 1% lidocaine local. Under physician supervision, Versed and fentanyl were administered intravenously for moderate sedation. Pulse oximetry, heart rate, and BP were continuously monitored by an independent trained observer present. The physician spent 22 minutes of face to face sedation time with the patient. . Ancef 2 Gm IV Indication: Multiple myeloma Procedure: Under ultrasound guidance, the right internal jugular vein was accessed with a 5-Austrian micropuncture set with live sonographic visualization of the needle entry into the patent vessel. An image was saved for documentation. A peelaway sheath placed. A subcutaneous pocket was created using blunt dissection. A Powerport was flushed with normal saline. The port was placed within the pocket and the catheter was advanced under fluoroscopic guidance through the peel away sheath to the caval-atrial junction. Hemostasis was achieved and the port pocket was flushed clear with saline. The catheter was attached firmly to the port. The port was accessed and aspirated freely. Saline injection was then performed and there was no leakage . The incision was closed with absorbable sutures and Dermabond. The port was then accessed using a Ortega needle. It aspirated with ease and was then flushed with heparin. A sterile dressing was applied. The port may be used immediately. All elements of maximal sterile barrier technique were followed including: cap, mask, sterile gown, sterile gloves, a large sterile sheet, hand hygiene and 2% Chlorhexidine for cutaneous antisepsis. Findings: Ultrasound shows an anechoic and compressible right IJ . IMPRESSION: Impression: Successful chest port placement as discussed above. Port flushed with heparin and ready for immediate use. -------- FINAL REPORT -------- Dictated By: Louie Chakraborty Dictated Date: 02/18/2023 09:08 Assigned Physician: Louie Chakraborty Reviewed and Electronically Signed By: Louie Chakraborty Signed Date: 02/18/2023 11:38 Workstation ID: [id number] Transcribed By: Self Edit Transcribed Date: 02/18/2023 09:18 Normal [facility] PT Coag (PPP) [Time]on 02-12 INR Coag (PPP) [Relative time] 1.0 {INR} Normal <=5.0 [facility] Comment on above: Order Comment: The r ecommended therapeutic INR range for most cardiac indications is 2.0-3.0For high intensity therapy (i.e. mechanical heart valves), the recommended range is 2.5-3.5 Performed By: #### 5 902-2 ####[facility] [id number] [place] [address] Platelet # Bldon 02-12-2023 Platelets (Bld) [#/Vol] 296 10*3/uL Normal 142-424 [facility] Comment on above: Performed By: #### 2 6515-7 ####[address] [address] Platelets (Bld) [#/Vol]on Platelet mean volume (Bld) [Entitic vol] 8.8 fL Normal 6.2-12.1 [facility] Comment on above: Performed By: #### 2 6515-7 ####[address] [address] Prothrombin timeon PT Coag (PPP) [Time] 13.4 s Normal 11.9-14.7 [facility] Comment on above: Order Comment: The r ecommended therapeutic INR range for most cardiac indications is 2.0-3.0For high intensity therapy (i.e. mechanical heart valves), the recommended range is 2.5-3.5 Performed By: #### 5 902-2 ####[facility] [id number] [place] [address] CT BX AND ASP BONE MARROWon 01-29-2023 CT BX AND ASP BONE MARROW EXAM: CT guided bone marrow biopsy and aspiration INDICATION: Multiple myeloma IR ATTENDING: Nia Gaines MD SEDATION/ANESTHESIA: Level of sedation/anesthesia: Moderate sedation - the physician who performed the diagnostic/therapeutic procedure provided 11 minutes of continuous face to face moderate sedation services for this procedure with the assistance of an independent trained observer who had no other duties during the procedure. Agent(s): Versed 1 mg IV, fentanyl 50 mcg IV ANTIBIOTIC PROPHYLAXIS: No prophylactic antibiotic administered because not indicated. OTHER MEDICATIONS: None COMPLICATIONS: None immediate PREPROCEDURE: Informed written consent was obtained after a discussion of the risks, benefits, and alternatives to the procedure. A pre-procedure assessment was documented in the medical record. A Time-Out was performed immediately prior to the procedure. TECHNIQUE AND FINDINGS: The patient was positioned on the CT table. The back was prepped and draped in usual sterile fashion. A planning CT scan was performed. A site overlying the right iliac crest was marked. Under CT guidance, the marrow cavity was accessed with a Outbrain bone marrow biopsy drill. Marrow aspirate and 11-gauge core biopsy samples were obtained. The needle was removed and hemostasis was achieved with manual compression. The patient tolerated the procedure well. IMPRESSION: Successful CT guided bone marrow biopsy and aspiration. -------- FINAL REPORT -------- Dictated By: Nia Gaines Dictated Date: 01/29/2023 17:01 Assigned Physician: Nia Gaines Reviewed and Electronically Signed By: Nia Gaines Signed Date: 01/29/2023 17:02 Workstation ID: [id number] Transcribed By: Self Edit Transcribed Date: 01/29/2023 17:01 Normal [facility] CT Bx and Asp Bone Marrowon 01-29-[address] guided bone marrow biopsy and aspiration. -------- FINAL REPORT -------- Dictated By: Nia Gaines Dictated Date: 01/29/2023 17:01 Assigned Physician: Nia Gaines Reviewed and Electronically Signed By: Nia Gaines Signed Date: 01/29/2023 17:02 Workstation ID: [id number] Transcribed By: Self Edit Transcribed Date: 01/29/2023 17:01 [facility] EXAM: CT guided bone marrow biopsy and aspiration INDICATION: Multiple myeloma IR ATTENDING: Nia Gaines MD SEDATION/ANESTHESIA: Level of sedation/anesthesia: Moderate sedation - the physician who performed the diagnostic/therapeutic procedure provided 11 minutes of continuous face to face moderate sedation services for this procedure with the assistance of an independent trained observer who had no other duties during the procedure. Agent(s): Versed 1 mg IV, fentanyl 50 mcg IV ANTIBIOTIC PROPHYLAXIS: No prophylactic antibiotic administered because not indicated. OTHER MEDICATIONS: None COMPLICATIONS: None immediate PREPROCEDURE: Informed written consent was obtained after a discussion of the risks, benefits, and alternatives to the procedure. A pre-procedure assessment was documented in the medical record. A Time-Out was performed immediately prior to the procedure. TECHNIQUE AND FINDINGS: The patient was positioned on the CT table. The back was prepped and draped in usual sterile fashion. A planning CT scan was performed. A site overlying the right iliac crest was marked. Under CT guidance, the marrow cavity was accessed with a Outbrain bone marrow biopsy drill. Marrow aspirate and 11-gauge core biopsy samples were obtained. The needle was removed and hemostasis was achieved with manual compression. The patient tolerated the procedure well. Nia Ashraf MD - 01/29/2023 EXAM: CT guided bone marrow biopsy and aspiration INDICATION: Multiple myeloma IR ATTENDING: Nia Gaines MD SEDATION/ANESTHESIA: Level of sedation/anesthesia: Moderate sedation - the physician who performed the diagnostic/therapeutic procedure provided 11 minutes of continuous face to face moderate sedation services for this procedure with the assistance of an independent trained observer who had no other duties during the procedure. Agent(s): Versed 1 mg IV, fentanyl 50 mcg IV ANTIBIOTIC PROPHYLAXIS: No prophylactic antibiotic administered because not indicated. OTHER MEDICATIONS: None COMPLICATIONS: None immediate PREPROCEDURE: Informed written consent was obtained after a discussion of the risks, benefits, and alternatives to the procedure. A pre-procedure assessment was documented in the medical record. A Time-Out was performed immediately prior to the procedure. TECHNIQUE AND FINDINGS: The patient was positioned on the CT table. The back was prepped and draped in usual sterile fashion. A planning CT scan was performed. A site overlying the right iliac crest was marked. Under CT guidance, the marrow cavity was accessed with a Outbrain bone marrow biopsy drill. Marrow aspirate and 11-gauge core biopsy samples were obtained. The needle was removed and hemostasis was achieved with manual compression. The patient tolerated the procedure well. IMPRESSION: Successful CT guided bone marrow biopsy and aspiration. -------- FINAL REPORT -------- Dictated By: Nia Gaines Dictated Date: 01/29/2023 17:01 Assigned Physician: Nia Gaines Reviewed and Electronically Signed By: Nia Gaines Signed Date: 01/29/2023 17:02 Workstation ID: [id number] Transcribed By: Self Edit Transcribed Date: 01/29/2023 17:01 [facility] Radiology Study observation (narrative) [facility] Chr analysis panel FISH (Bld /Tiss)on 01-29-2023 FISH SEE BELOW Normal [facility] Comment on above: Result Comment: Daniella spring See Chromosome Report for FISH Results. Performed By: #### 6 2367-8 ####[id number] [place] [address] Specify probe(s) or profile(s) from [employer] N/A Normal [facility] Comment on above: Performed By: #### 6 2367-8 ####[id number] [place] [address] Karyotyp Bld/Ton 01-29-2023 Additional Information: N/A Normal [facility] Comment on above: Performed By: #### 2 9770-5 ####[id number] [place] [address] Performed By: #### 6 2367-8 ####[id number] [place] [address] Clinical Information N/A Normal [facility] Comment on above: Performed By: #### 2 9770-5 ####[address] [id number] [place] [address] Performed By: #### 6 2367-8 ####[id number] [place] [address] Specimen Type: MARROW Normal [facility] Comment on above: Performed By: #### 2 9770-5 ####[id number] [place] [address] Performed By: #### 6 2367-8 ####[id number] [place] [address] Therapy Information: N/A Normal [facility] Comment on above: Performed By: #### 2 9770-5 ####[id number] [place] [address] Performed By: #### 6 2367-8 ####[id number] [place] [address] Karyotype Nom (Bld/Tiss)on 01-29-2023 Cytogenetics, Neoplastic -B/BM SEE BELOW Normal [facility] Comment on above: Result Comment: Copy -To-Locations [facility] CLINICAL INFORMATION SPECIMEN TYPE: Bone Marrow Aspirate CLINICAL HISTORY: Myeloma, Plasmacytoma CYTOGENETICS LAB NUMBER: [id number] PREVIOUS CASE: None Known TESTS ORDERED Chromosome Analysis, Myeloma Profile [Interphase FISH] INTERPRETATION OVERALL INTERPRETATION Chromosome Analysis Normal Karyotype. No consistent numerical or structural chromosome abnormalities were observed. Myeloma Profile [Interphase FISH] Negative for loss of TP53, gain/amplification of 1q, del(1p), -13/del(13q), IGH rearrangements, +5, +9, +11, +15. Fluorescence in situ hybridization (FISH) was performed with [employer] probes for chromosomes 1 (CDKN2C, CKS1B), 5 ([id number]/[id number]), 9 (NR4A3), 11 (D11Z1), 13 (DLEU1, LAMP1), 15 (SMAD6), and 17 (TP53, NF1), and break-apart probes for IGH on chromosome 14. Two hundred nuclei were examined for each, and all results are within normal limits for the laboratory's established background rates. Plasma cell enrichment was not performed due to sample viability. COMMENT Chromosome analysis will not detect subtle translocations, deletions, inversions or other cytogenetic abnormalities that are beyond the resolution limits of the technology used. Myeloma FISH analysis is performed digitally using the [employer] imaging platform. The background rates for plasma cell enriched sample are -1p/+1q: 7.9%/3.8%; -13/del(13q): 4.4%/7.4%; IGH jocelyne: 6.3%; loss of TP53: 8.5%; IGH jocelyne with specific partner: 0.0%; +5: 5.1%; +9: 5.1%; +11: 6.3%; +15: 7.4% and for unenriched sample are -1p/+1q: 5.7%/3.8%; -13/del(13q): 4.4%/5.1%; IGH jocelyne: 6.3%; loss of TP53: 6.8%; IGH jocelyne with specific partner: 0.0%; +5: 1.5%; +9: 2.3%; +11: 7.9%; +15: 3.8%. The FISH probes utilized are specific for the parameters indicated above; they will not detect other cytogenetic abnormalities that may be present. This FISH test was developed and its analytical performance characteristics have been determined by [employer] [facility]. It has not been cleared or approved by the U.S. Food and Drug Administration. The FDA has determined that such clearance or approval is not necessary. This assay has been validated pursuant to the CLIA regulations and is used for clinical purposes. SIGNATURE Director, Cytogenetics: Alberto Wilder, Ph.D. Electronic Signature: 23 FEB 2023 10:29 AM RESULTS ISCN RESULTS 46,XY[20] nuc gurinder 1p32(YURT0Hv4),1q21(QNU8Kw8),5p15(H8N8081B/D8P0959q0),9q22(NR 4A3x2),11ce n(G15Q9j3), 13q14.2(CEAX9q7),13q34(UNNR1d6),14q32.3(IGHx2),15q22.3(SMAD6x 2),17p13.1( TP53x2),17q11.2(NF1x2)[200] CULTURES CULTURES: 24 and 48 hour unstimulated. CELLS EXAMINED: 1220 BANDING/STAINING TECHNIQUE(S): G-BANDING, FISH CELLS ANALYZED: 20 BAND RESOLUTION: 400 CELLS KARYOTYPED: 2 KARYOTYPES 46,XY CYTOGENETICS LAB NUMBER: [id number] FISH IMAGES Myeloma Profile Microscopic image is a symbolic representation of the betancourt findings of your specific report. The image is not intended to replace a complete review and reading of the final diagnostic report. CPT CODES 98514, 71979z8, 72180, 21674j49 The CPT codes provided are for information purposes only, and are based on AMA guidelines without regard to specific payor requirements. END OF REPORT FINAL REPORT-ACC FINAL [facility],[address] [place] [address]. [phone]. [phone]. Compression Molding Machine Operator: Nidia Galaviz M.D. [facility] [id number], [facility]-[id number] Performed By: #### 2 9770-5 ####[id number] [place] [address] FISH Needed Upfront N/A [facility] Comment on above: Performed By: #### 2 9770-5 ####[id number] [place] [address] Quantity and Container Type: N/A [facility] Comment on above: Performed By: #### 2 9770-5 ####[id number] [place] [address] Reflex To FISH As Necessary N/A [facility] Comment on above: Performed By: #### 2 9770-5 ####[facility] [id number] [place] [id number] LEUKEMIA, LYMPHOMA EVALUATIO N BY FLOW CYTOMETRYon 01-29-2023 Pathologist Interpretation Flow Cytometry [facility] Comment on above: Result Comment: Spec imen Source: Bone marrow aspirate. Clinical Information: Plasmacytoma. Panel: Flow cytometric analysis was performed using the following markers: CD3, CD5, CD10, CD11c, CD19, CD20, CD23, CD38, CD45, kappa, lambda, CD56, nxPM19k, cytoplasmic kappa, cytoplasmic lambda. INTERPRETATION Bone marrow aspirate, flow cytometric analysis: -KAPPA-RESTRICTED PLASMA CELL POPULATION IS DETECTED. -NO IMMUNOPHENOTYPIC EVIDENCE OF AN ABNORMAL B-CELL OR BLAST POPULATION. NOTE: B-cells represent approximately 6% lymphocytes (0.4% of total events analyzed) and are polytypic. An abnormal blast population is not detected. A small plasma cell population is detected (0.8% of total events analyzed) that shows aberrant CD56 expression and kappa light chain restriction. Correlation with bone marrow specimen [id number] is recommended for further evaluation. Interpreted by Sherry Alas M.D. ~\R\~ The technical component of this [place] [address]. The professional interpretation was performed at [facility]. The test was developed and its performance characteristics determined by [facility]. It has not been cleared by the U.S. Food and Drug Administration. We are required to make this disclaimer although the FDA has determined that such clearance is not necessary. This test is used for clinical purposes and is not to be considered investigational or for research. CPT code 16573 Performed By: #### L [id number] ####EXTERNAL LAB (NON-INTERFACED) Microscopic Mar-Impon 2022 Microscopic exam Cytology (BM) [Interp] Cytogenetic analysis revealed a Normal karyotype. Myeloma Profile [Interphase FISH]: Negative for loss of TP53, gain/amplification of 1q, del(1p), -13/del(13q), IGH rearrangements, del(17p), +5, +9, +11, +15. Addendum electronically signed by Sherry Alas MD on 03/10/2023 at 2:56 PM (A-C) Bone marrow specimen [biopsy, clot section, aspirate smear, peripheral blood smear]: -- Involvement by plasma cell neoplasm. Note: The bone marrow is mildly hypercellular (50% cellularity) and contains a kappa-restricted plasma cell neoplasm in a background of preserved trilineage hematopoiesis. Plasma cells comprise approximately 25% of marrow cellularity. Chromosome analysis as well as myeloma FISH studies will be performed for further evaluation. 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 A. Bone Marrow Aspirate, Bone Marrow Clot: Received in formalin labeled with patient name and marrow clot is a 1 cm aggregate of dark red clotted blood entirely submitted in block A1. Also received are 10 aspirate smears. (w) B. Bone Marrow Biopsy, Bone Marrow Core Biopsy: Received in formalin labeled with patient name and bone marrow core biopsy is a 0.5 cm fragment of friable ware bone entirely submitted decalcification in block B1. (w) C. Blood, Venous, PERIPHERAL BLOOD SMEAR SLIDE: Received is 1 peripheral blood smear labeled with the patient's name and date 01/29/2023. () CBC (per report, 01/19/2023): WBC 5.1 K per microliter, hemoglobin 10.1 g/dL, MCV 88 FL, RDW 16.3%, platelet count 307 K per microliter. Peripheral blood smear differential count: Granulocytes 84.2%, lymphocytes 7.2%, monocytes 6.8%, basophil 0.6%, eosinophils 0.6%, immature granulocytes 0.6%. Peripheral blood smear review (smear from 01/29/2023): Adequate leukocyte count with predominantly unremarkable white blood cell morphology. Red blood cells show occasional polychromasia. Platelets are unremarkable. Bone marrow aspirate smear quality: Adequate with numerous spicules. Bone marrow aspirate smear differential count (500 cells): Blasts 0%, promyelocytes 2%, myelocytes 14%, metamyelocytes 10%, bands/neutrophils 36%, eosinophils 3%, basophils 1%, monocytes 2%, lymphocytes 3%, plasma cells 6%, erythroid precursors 23%. M: E ratio is 2.9:1. Erythroids: Adequate with predominantly unremarkable morphology. Granulocytes: Adequate with flat sorter processor progression to mature forms. Blasts are not increased and dysgranulopoiesis is not apparent. Megakaryocytes: Megakaryocytes are present in adequate numbers with predominantly unremarkable morphology. Iron stain: Iron staining is increased. Ring sideroblasts are not identified. Biopsy and clot section: Bone marrow cellularity is approximately 50%. There is an atypical plasma cell infiltrate in a background of preserved trilineage hematopoiesis. The atypical plasma cells are positive for CD138 and kappa light chain GURINDER and negative for lambda GURINDER. Plasma cells comprise approximately 25% of marrow cellularity. The clot section contains a small lymphoid aggregate comprised of small, mature lymphocytes (less than 5% of marrow cellularity). CD3 and CD20 highlight scattered interstitial T and B cells. The small lymphoid aggregate is comprised mostly of T cells. Centerview-restricted plasma cell population with aberrant CD56 expression is detected. There is no immunophenotypic evidence of an abnormal B-cell or blast population. Any immunohistochemistry or special stain used in the interpretation of this case was performed at [facility]. These tests have not been cleared or approved by the U.S. Food and Drug Administration. The FDA has determined that such clearance or approval is not necessary. These tests are used for clinical purposes and should not be regarded as investigational or for research. This laboratory is certified to perform high complexity testing under the Clinical Laboratory Improvement Amendments of 1998. All controls show appropriate reactivity. The technical component was performed at [facility], [address] [place] [address]. Microscopic examination was performed. Normal [facility] Comment on above: Performed By: #### 5 7764-3 #### [facility] [address] [place] [address] [facility] [address] [place] [address] Microscopic exam Cytology (B M) [Interp]on 01-29-2023 AP MISCELLANEOUS TEST See Scanned Result Normal [facility] Comment on above: Performed By: #### 5 7764-3 #### [facility] [address] [place] [address] [facility] [address] [place] [address] PT Coag (PPP) [Time]on 01-29 INR Coag (PPP) [Relative time] 1.0 {INR} Normal <=5.0 [facility] Comment on above: Order Comment: The r ecommended therapeutic INR range for most cardiac indications is 2.0-3.0For high intensity therapy (i.e. mechanical heart valves), the recommended range is 2.5-3.5 Performed By: #### 5 902-2 ####[address] [address] INR Coag (PPP) [Relative time] 1.0 {INR} NINF - 5.0 [facility] Interpretation and review of laboratory results Normal [facility] PT Coag (Bld) [Time] 13.6 s [facility] The recommended therapeutic INR range for most cardiac indications is 2.0-3.0 For high intensity therapy (i.e. mechanical heart valves), the recommended range is 2.5-3.5 [facility] Platelet # Bldon 01-29-2023 Platelets (Bld) [#/Vol] 325 10*3/uL Normal 142-424 [facility] Comment on above: Performed By: #### 2 6515-7 ####[address] [address] Platelet countOrdered By: Julio C Mcdaniels on 01-29-2023 Platelets (Bld) [#/Vol] 325 10*3/uL [facility] [facility] Platelets (Bld) [#/Vol]Order ed By: Hyacinth Mcdaniels on 01-29-2023 Interpretation and review of laboratory results Normal [facility] Platelet mean volume (Bld) [Entitic vol] 8.6 fL [facility] Platelets (Bld) [#/Vol]on Platelet mean volume (Bld) [Entitic vol] 8.6 fL Normal 6.2-12.1 [facility] Comment on above: Performed By: #### 2 6515-7 ####[address] [address] Prothrombin timeon 3 PT Coag (PPP) [Time] 13.6 s Normal 11.9-14.7 [facility] Comment on above: Order Comment: The r ecommended therapeutic INR range for most cardiac indications is 2.0-3.0For high intensity therapy (i.e. mechanical heart valves), the recommended range is 2.5-3.5 Performed By: #### 5 902-2 ####[facility] [address] [place] [address] Laboratory - Chemistry and C hemistry - challengeon 01-05-2023 Cryoglobulin Immune diff Ql (S) T SPINE [facility] Rad Onc Aria Session Summary on 01-05-2023 Albumin given [Vol] 4 Gy [facility] Amikacin (Dose) [Mass] 4 Gy [facility] Appe[facility] (Unsp spec) Palliative [facility] Appearance (Unsp spec) [address] [facility] date [Date/time] 01/05/[address] [facility] date [Date/time] [address] [facility] date [Date/time] [address] [facility] Cell Fractions/Differential (Bld) [Interp] 5 [facility] Collection start date (U) 11/30/2022 [facility] Cryoglobulin Immune diff Ql (S) C1 [facility] Date Palm Pollen IgE Qn (S) 12/29/2022 [facility] Name [facility] Tetrahydrocortisone (Dose) [Mass] 2000 cGy [facility] Laboratory - Chemistry and C hemistry - challengeon 01-04-2023 Cryoglobulin Immune diff Ql (S) T SPINE [facility] Rad Onc Aria Session Summary on 01-04-2023 Albumin given [Vol] 4 Gy [facility] Amikacin (Dose) [Mass] 4 Gy [facility] Appearance (Unsp spec) Palliative [facility] Appearance (Unsp spec) [address] [facility] date [Date/time] 01/04/[address] [facility] date [Date/time] [address] [facility] date [Date/time] 4 [facility] Cell Fractions/Differential (Bld) [Interp] 5 [facility] Collection start date (U) 11/30/2022 [facility] Cryoglobulin Immune diff Ql (S) C1 [facility] Date Palm Pollen IgE Qn (S) 12/29/2022 [facility] Plan Name [facility] Tetrahydrocortisone (Dose) [Mass] 2000 cGy [facility] Laboratory - Chemistry and C hemistry - challengeon 12-31-2022 Cryoglobulin Immune diff Ql (S) T [facility] Rad Onc Aria Session Summary on 12-31-2022 Albumin given [Vol] 4 Gy [facility] Amikacin (Dose) [Mass] 4 [facility]sp spec[facility] (Unsp spec) 2 Tr [facility] date [Date/time] 12/31/2022 [facility] date [Date/time] 8 Gy Tr [facility] date [Date/time] 2 Tr [facility] Cell Fractions/Differential (Bld) [Interp] 5 [facility] Collection start date (U) 11/30/2022 [facility] Cryoglobulin Immune diff Ql (S) C1 [facility] Date [place] Pollen IgE Qn (S) 12/29/2022 [facility] Plan Name T [facility] Tetrahydrocortisone (Dose) [Mass] 2000 cGy [facility] Basic metabolic 2000 panelon 12-18-2022 Anion gap [Moles/Vol] 7 mmol/L Normal 6-18 [facility] Comment on above: Performed By: #### 5 9032-3 #### [facility] [address] [place] [address] Calcium [Mass/Vol] 8.3 mg/dL Low 8.9-10.3 [facility] Comment on above: Performed By: #### 5 9032-3 #### [facility] [address] [place] [address] Chloride [Moles/Vol] 98 mmol/L Normal 98-107 [facility] Comment on above: Performed By: #### 5 9032-3 #### [facility] [address] [place] [address] CO2 [Moles/Vol] 28 mmol/L Normal 22-32 [facility] Comment on above: Performed By: #### 5 9032-3 #### [facility] [address] [place] [address] Creatinine [Mass/Vol] 0.39 mg/dL Low 0.60-1.30 [facility] Comment on above: Performed By: #### 5 9032-3 #### [facility] [address] [place] [address] GFR/1.73 sq M.predicted among non-blacks MDRD (S/P/Bld) [Vol rate/Area] 122 mL/min/{1.73_m2} Normal >=60 [facility] Comment on above: Result Comment: Effe ctive July 05, 2022, calculation based on the?Chronic Kidney Disease Epidemiology Collaboration (CKD-EPI) equation refit?without adjustment for race. Performed By: #### 5 9032-3 #### [facility] [address] [place] [address] Glucose [Mass/Vol] 104 mg/dL High 70-99 [facility] Comment on above: Performed By: #### 5 9032-3 #### [facility] [address] [place] [address] Potassium [Moles/Vol] 3.7 mmol/L Normal 3.6-5.1 [facility] Comment on above: Performed By: #### 5 9032-3 #### [facility] [address] [place] [address] Sodium [Moles/Vol] 133 mmol/L Low 136-145 [facility] Comment on above: Performed By: #### 5 9032-3 #### [facility] [address] [place] [address] Urea nitrogen [Mass/Vol] 12 mg/dL Normal 8-20 [facility] Comment on above: Performed By: #### 5 9032-3 #### [facility] [address] [place] [address] Urea nitrogen/Creatinine [Mass ratio] 30.8 mg/mg High 12.0-20.0 [facility] Comment on above: Performed By: #### 5 9032-3 #### [facility] [address] [place] [address] Anion gap [Moles/Vol] 7 mmol/L 6 - 18 Tri [facility] Calcium [Mass/Vol] 8.3 mg/dL Low 8.9 - 10. 3 mg/dL [place] [facility] Chloride [Moles/Vol] 98 mmol/L 98 - 10 7 mmol/L [facility] CO2 [Moles/Vol] 28 mmol/L 22 - 32 mmol/L [facility] Creatinine [Mass/Vol] 0.39 mg/dL Low 0.60 - 1.30 mg/dL [facility] GFR/1.73 sq M.predicted among non-blacks MDRD (S/P/Bld) [Vol rate/Area] 122 mL/min/{1.73_m2} - PINF [facility] Comment on above: Effective July 05, 2022, calculation based on the Chronic Kidney Disease Epidemiology Collaboration (CKD-EPI) equation refit without adjustment for race. Glucose [Mass/Vol] 104 mg/dL High 70 - 99 mg/dL [facility] Interpretation and review of laboratory results Abnormal [facility] Potassium [Moles/Vol] 3.7 mmol/L 3.6 - 5.1 mmol/L [facility] Sodium [Moles/Vol] 133 mmol/L Low 136 - 145 mmol/L [facility] Urea nitrogen [Mass/Vol] 12 mg/dL 8 - 20 mg/dL [facility] Urea nitrogen/Creatinine [Mass ratio] 30.8 mg/mg High 12.0 - 20.0 [facility] Hemogram and platelets WO di fferential panel (Bld)on 12-18-2022 Basophils (Bld) [#/Vol] 0.06 10*3/uL Normal 0.00-0.20 [facility] Comment on above: Performed By: #### 5 9032-3 #### [facility] [address] [place] [address] Basophils/100 WBC (Bld) 0.8 % Normal 0.0-2.0 [facility] [place] Comment on above: Performed By: #### 5 9032-3 #### [facility] [address] [place] [address] Eosinophils (Bld) [#/Vol] 0.25 10*3/uL Normal 0.00-0.70 [facility] Comment on above: Performed By: #### 5 9032-3 #### [facility] [address] [place] [address] Eosinophils/100 WBC (Bld) 3.2 % Normal 0.0-7.0 [facility] Comment on above: Performed By: #### 5 9032-3 #### [facility] [address] [place] [address] Erythrocyte distribution width (RBC) [Ratio] 14.7 % Normal 11.0-14.8 [facility] Comment on above: Performed By: #### 5 9032-3 #### [facility] [address] [place] [address] Hematocrit (Bld) [Volume fraction] 28.7 % Low 39.0-49.0 [facility] Comment on above: Performed By: #### 5 9032-3 #### [facility] [address] [place] [address] Hemoglobin (Bld) [Mass/Vol] 8.9 g/dL Low 13.5-17.5 [facility] Comment on above: Performed By: #### 5 9032-3 #### [facility] [address] [place] [address] Immature granulocytes (Bld) [#/Vol] 0.16 10*3/uL High 0.00-0.10 [facility] Comment on above: Performed By: #### 5 9032-3 #### [facility] [address] [place] [address] Immature granulocytes/100 WBC (Bld) 2.0 % High 0.0-1.2 [facility] Comment on above: Performed By: #### 5 9032-3 #### [facility] [address] [place] [address] Lymphocytes (Bld) [#/Vol] 1.54 10*3/uL Normal 1.00-4.80 [facility] Comment on above: Performed By: #### 5 9032-3 #### [facility] [address] [place] [address] Lymphocytes/100 WBC (Bld) 19.7 % Normal 17.9-49.6 [facility] Comment on above: Performed By: #### 5 9032-3 #### [facility] [address] [place] [address] MCH 28.1 pcg Normal 27.0-34.0 [facility] Comment on above: Performed By: #### 5 9032-3 #### [facility] [address] [place] [address] MCHC (RBC) [Mass/Vol] 31.0 g/dL Normal 30.8-35.3 [facility] Comment on above: Performed By: #### 5 9032-3 #### [facility] [address] [place] [address] MCV (RBC) [Entitic vol] 90.5 fL Normal 80.0-97.0 M [facility] Comment on above: Performed By: #### 5 9032-3 #### [facility] [address] [place] [address] Monocytes (Bld) [#/Vol] 0.65 10*3/uL Normal 0.00-0.90 [facility] Comment on above: Performed By: #### 5 9032-3 #### [facility] [address] [place] [address] Monocytes/100 WBC (Bld) 8.3 % Normal 4.0-23.0 [facility] Comment on above: Performed By: #### 5 9032-3 #### [facility] [address] [place] [address] Neutrophils Absolute 5.15 K/mcL Normal 1.80-7.70 [facility] Comment on above: Performed By: #### 5 9032-3 #### [facility] [address] [place] [address] Neutrophils/100 WBC (Bld) 66.0 % Normal 38.1-75.5 [facility] Comment on above: Performed By: #### 5 9032-3 #### [facility] [address] [place] [address] Platelet mean volume (Bld) [Entitic vol] 9.0 fL Normal 6.2-12.1 [facility] Comment on above: Performed By: #### 5 9032-3 #### [facility] [address] [place] [address] Platelets (Bld) [#/Vol] 317 10*3/uL Normal 142-424 [facility] Comment on above: Performed By: #### 5 9032-3 #### [facility] [address] [place] [address] RBC (Bld) [#/Vol] 3.17 10*6/uL Low 4.30-5.70 [facility] Comment on above: Performed By: #### 5 9032-3 #### [facility] [address] [place] [address] WBC (Bld) [#/Vol] 7.8 10*3/uL Normal 4.6-10.2 [facility] Comment on above: Performed By: #### 5 9032-3 #### [facility] [address] [place] [address] Basophils (Bld) [#/Vol] 0.06 10*3/uL [facility] Basophils/100 WBC (Bld) 0.8 % 0.0 - 2.0 % [facility] Eosinophils (Bld) [#/Vol] 0.25 10*3/uL [facility] Eosinophils/100 WBC (Bld) 3.2 % 0.0 - 7.0 % [facility] Erythrocyte distribution width (RBC) [Ratio] 14.7 % 11.0 - 14.8 % [facility] Hematocrit (Bld) [Volume fraction] 28.7 % Low 39.0 - 49.0 % [facility] Hemoglobin (Bld) [Mass/Vol] 8.9 g/dL Low 13.5 - 17.5 g/dL [facility] Immature granulocytes (Bld) [#/Vol] 0.16 10*3/uL High [facility] Immature granulocytes/100 WBC (Bld) 2.0 % High 0.0 - 1.2 % [facility] Interpretation and review of laboratory results Abnormal [facility] Lymphocytes (Bld) [#/Vol] 1.54 10*3/uL [facility] Lymphocytes/100 WBC (Bld) 19.7 % 17.9 - 49.6 % [facility] MCH (RBC) [Entitic mass] 28.1 pg [facility] MCHC (RBC) [Mass/Vol] 31.0 g/dL 30.8 - 35.3 g/dL [facility] MCV (RBC) [Entitic vol] 90.5 fL [facility] Monocytes (Bld) [#/Vol] 0.65 10*3/uL [facility] Monocytes/100 WBC (Bld) 8.3 % 4.0 - 23.0 % [facility] Neutrophils (Bld) [#/Vol] 5.15 10*3/uL [facility] Neutrophils/100 WBC (Bld) 66.0 % 38.1 - 75.5 % [facility] Platelet mean volume (Bld) [Entitic vol] 9.0 fL [facility] Platelets (Bld) [#/Vol] 317 10*3/uL [facility] RBC (Bld) [#/Vol] 3.17 10*6/uL Low [facility] WBC (Bld) [#/Vol] 7.8 10*3/uL [facility] Basic metabolic 2000 panelon 12-17-2022 Anion gap [Moles/Vol] 9 mmol/L Normal 6-18 [facility] Comment on above: Performed By: #### 2 4317-0 #### [facility] [place] [address] Calcium [Mass/Vol] 8.5 mg/dL Low 8.9-10.3 [facility] Comment on above: Performed By: #### 2 4317-0 #### [facility] [address] [place] [address] Chloride [Moles/Vol] 96 mmol/L Low 98-107 [facility] Comment on above: Performed By: #### 2 4317-0 #### [facility] [address] [place] [address] CO2 [Moles/Vol] 29 mmol/L Normal 22-32 [facility] Comment on above: Performed By: #### 2 4317-0 #### [facility] [address] [place] [address] Creatinine [Mass/Vol] 0.43 mg/dL Low 0.60-1.30 [facility] Comment on above: Performed By: #### 2 4317-0 #### [facility] [address] [place] [address] GFR/1.73 sq M.predicted among non-blacks MDRD (S/P/Bld) [Vol rate/Area] 118 mL/min/{1.73_m2} Normal >=60 [facility] Comment on above: Result Comment: Effe ctive July 05, 2022, calculation based on the?Chronic Kidney Disease Epidemiology Collaboration (CKD-EPI) equation refit?without adjustment for race. Performed By: #### 2 4317-0 #### [facility] [address] [place] [address] Glucose [Mass/Vol] 144 mg/dL High 70-99 [facility] Comment on above: Performed By: #### 2 4317-0 #### [facility] [address] [place] [address] Potassium [Moles/Vol] 3.8 mmol/L Normal 3.6-5.1 [facility] Comment on above: Performed By: #### 2 4317-0 #### [facility] [address] [place] [address] Sodium [Moles/Vol] 134 mmol/L Low 136-145 [facility] Comment on above: Performed By: #### 2 4317-0 #### [facility] [address] [place] [address] Urea nitrogen [Mass/Vol] 15 mg/dL Normal 8-20 [facility] Comment on above: Performed By: #### 2 4317-0 #### [facility] [address] [place] [address] Urea nitrogen/Creatinine [Mass ratio] 34.9 mg/mg High 12.0-20.0 [facility] Comment on above: Performed By: #### 2 4317-0 #### [facility] [address] [place] [address] Anion gap [Moles/Vol] 9 mmol/L 6 - 18 [facility] Calcium [Mass/Vol] 8.5 mg/dL Low 8.9 - 10. 3 mg/dL [facility] Chloride [Moles/Vol] 96 mmol/L Low 98 - 10 7 mmol/L [facility] CO2 [Moles/Vol] 29 mmol/L 22 - 32 mmol/L [facility] Creatinine [Mass/Vol] 0.43 mg/dL Low 0.60 - 1.30 mg/dL [facility] GFR/1.73 sq M.predicted among non-blacks MDRD (S/P/Bld) [Vol rate/Area] 118 mL/min/{1.73_m2} - PINF [facility] Comment on above: Effective July 05, 2022, calculation based on the Chronic Kidney Disease Epidemiology Collaboration (CKD-EPI) equation refit without adjustment for race. Glucose [Mass/Vol] 144 mg/dL High 70 - 99 mg/dL [facility] Interpretation and review of laboratory results Abnormal [facility] Potassium [Moles/Vol] 3.8 mmol/L 3.6 - 5.1 mmol/L [facility] Sodium [Moles/Vol] 134 mmol/L Low 136 - 145 mmol/L [facility] Urea nitrogen [Mass/Vol] 15 mg/dL 8 - 20 mg/dL [facility] Urea nitrogen/Creatinine [Mass ratio] 34.9 mg/mg High 12.0 - 20.0 [facility] Hemogram and platelets WO di fferential panel (Bld)on 12-17-2022 Basophils (Bld) [#/Vol] 0.05 10*3/uL Normal 0.00-0.20 [facility] Comment on above: Performed By: #### 2 4317-0 #### [facility] [place] [address] Basophils/100 WBC (Bld) 0.7 % Normal 0.0-2.0 [facility] Comment on above: Performed By: #### 2 4317-0 #### [facility] [address] [place] [address] Eosinophils (Bld) [#/Vol] 0.08 10*3/uL Normal 0.00-0.70 [facility] Comment on above: Performed By: #### 2 4317-0 #### [facility] [address] [place] [address] Eosinophils/100 WBC (Bld) 1.1 % Normal 0.0-7.0 [facility] Comment on above: Performed By: #### 2 4317-0 #### [facility] [address] [place] [address] Erythrocyte distribution width (RBC) [Ratio] 14.6 % Normal 11.0-14.8 [facility] Comment on above: Performed By: #### 2 4317-0 #### [facility] [address] [place] [address] Hematocrit (Bld) [Volume fraction] 33.4 % Low 39.0-49.0 [facility] Comment on above: Performed By: #### 2 4317-0 #### [facility] [address] [place] [address] Hemoglobin (Bld) [Mass/Vol] 10.4 g/dL Low 13.5-17.5 [facility] Comment on above: Performed By: #### 2 4317-0 #### [facility] [address] [place] [address] Immature granulocytes (Bld) [#/Vol] 0.10 10*3/uL Normal 0.00-0.10 [facility] Comment on above: Performed By: #### 2 4317-0 #### [facility] [address] [place] [address] Immature granulocytes/100 WBC (Bld) 1.3 % High 0.0-1.2 [facility] Comment on above: Performed By: #### 2 4317-0 #### [facility] [address] [place] [address] Lymphocytes (Bld) [#/Vol] 0.95 10*3/uL Low 1.00-4.80 [facility] Comment on above: Performed By: #### 2 4317-0 #### [facility] [address] [place] [address] Lymphocytes/100 WBC (Bld) 12.6 % Low 17.9-49.6 [facility] Comment on above: Performed By: #### 2 4317-0 #### [facility] [address] [place] [address] MCH 28.3 pcg Normal 27.0-34.0 [facility] Comment on above: Performed By: #### 2 4317-0 #### [facility] [address] [place] [address] MCHC (RBC) [Mass/Vol] 31.1 g/dL Normal 30.8-35.3 [facility] Comment on above: Performed By: #### 2 4317-0 #### [facility] [address] [place] [address] MCV (RBC) [Entitic vol] 90.8 fL Normal 80.0-97.0 M [facility] Comment on above: Performed By: #### 2 4317-0 #### [facility] [address] [place] [address] Monocytes (Bld) [#/Vol] 0.58 10*3/uL Normal 0.00-0.90 [facility] Comment on above: Performed By: #### 2 4317-0 #### [facility] [address] [place] [address] Monocytes/100 WBC (Bld) 7.7 % Normal 4.0-23.0 [facility] Comment on above: Performed By: #### 2 4317-0 #### [facility] [address] [place] [address] Neutrophils Absolute 5.77 K/mcL Normal 1.80-7.70 [facility] Comment on above: Performed By: #### 2 4317-0 #### [facility] [address] [place] [address] Neutrophils/100 WBC (Bld) 76.6 % High 38.1-75.5 [facility] Comment on above: Performed By: #### 2 4317-0 #### [facility] [address] [place] [address] Platelet mean volume (Bld) [Entitic vol] 8.9 fL Normal 6.2-12.1 [facility] Comment on above: Performed By: #### 2 4317-0 #### [facility] [address] [place] [address] Platelets (Bld) [#/Vol] 357 10*3/uL Normal 142-424 [facility] Comment on above: Performed By: #### 2 4317-0 #### [facility] [address] [place] [address] RBC (Bld) [#/Vol] 3.68 10*6/uL Low 4.30-5.70 [facility] Comment on above: Performed By: #### 2 4317-0 #### [facility] [address] [place] [address] WBC (Bld) [#/Vol] 7.5 10*3/uL Normal 4.6-10.2 [facility] Comment on above: Performed By: #### 2 4317-0 #### [facility] [address] [place] [address] Basophils (Bld) [#/Vol] 0.05 10*3/uL [facility] Basophils/100 WBC (Bld) 0.7 % 0.0 - 2.0 % [facility] Eosinophils (Bld) [#/Vol] 0.08 10*3/uL [facility] Eosinophils/100 WBC (Bld) 1.1 % 0.0 - 7.0 % [facility] Erythrocyte distribution width (RBC) [Ratio] 14.6 % 11.0 - 14.8 % [facility] Hematocrit (Bld) [Volume fraction] 33.4 % Low 39.0 - 49.0 % [facility] Hemoglobin (Bld) [Mass/Vol] 10.4 g/dL Low 13.5 - 17.5 g/dL [facility] Immature granulocytes (Bld) [#/Vol] 0.10 10*3/uL [facility] Immature granulocytes/100 WBC (Bld) 1.3 % High 0.0 - 1.2 % [facility] Interpretation and review of laboratory results Abnormal [facility] Lymphocytes (Bld) [#/Vol] 0.95 10*3/uL [facility] Lymph[facility] WBC (Bld) 12.6 % Low 17.9 - 49.6 % [facility] MCH (RBC) [Entitic mass] 28.3 pg [facility] MCHC (RBC) [Mass/Vol] 31.1 g/dL 30.8 - 35.3 g/dL [facility] MCV (RBC) [Entitic vol] 90.8 fL T [facility] Monocytes (Bld) [#/Vol] 0.58 10*3/uL [facility] Monocytes/100 WBC (Bld) 7.7 % 4.0 - 23.0 % [facility] Neutrophils (Bld) [#/Vol] 5.77 10*3/uL [facility] Neutrophils/100 WBC (Bld) 76.6 % High 38.1 - 75.5 % [facility] Platelet mean volume (Bld) [Entitic vol] 8.9 fL [facility] Platelets (Bld) [#/Vol] 357 10*3/uL [facility] RBC (Bld) [#/Vol] 3.68 10*6/uL Low [facility] WBC (Bld) [#/Vol] 7.5 10*3/uL [facility] SARS-CoV-2 (COVID-19) RNA NA A+probe Ql (Resp)on 12-17-2022 Interpretation and review of laboratory results Normal [facility] SARS-CoV-2 (COVID-19) RdRp gene GARTH+probe Ql (Resp) Not detected Not Detected [facility] SARS-CoV-2 RNA Resp Ql GARTH+p robeon 12-17-2022 SARS-CoV-2 (COVID-19) RNA GARTH+probe Ql (Resp) Not detected Normal Not Detected [facility] Comment on above: Performed By: #### 2 4317-0 #### [facility] [address] [place] [address] Basic metabolic 2000 panelon 12-09-2022 Anion gap [Moles/Vol] 8 mmol/L Normal 6-18 [facility] Comment on above: Performed By: #### 2 4317-0 #### [facility] [address] [place] [address] Calcium [Mass/Vol] 8.2 mg/dL Low 8.9-10.3 [facility] Comment on above: Performed By: #### 2 4317-0 #### [facility] [address] [place] [address] Chloride [Moles/Vol] 101 mmol/L Normal 98-107 [facility] Comment on above: Performed By: #### 2 4317-0 #### [facility] [address] [place] [address] CO2 [Moles/Vol] 27 mmol/L Normal 22-32 [facility] Comment on above: Performed By: #### 2 4317-0 #### [facility] [address] [place] [address] Creatinine [Mass/Vol] 0.54 mg/dL Low 0.60-1.30 [facility] Comment on above: Performed By: #### 2 4317-0 #### [facility] [address] [place] [address] GFR/1.73 sq M.predicted among non-blacks MDRD (S/P/Bld) [Vol rate/Area] 111 mL/min/{1.73_m2} Normal >=60 [facility] Comment on above: Result Comment: Effe ctive July 05, 2022, calculation based on the?Chronic Kidney Disease Epidemiology Collaboration (CKD-EPI) equation refit?without adjustment for race. Performed By: #### 2 4317-0 #### [facility] [address] [place] [address] Glucose [Mass/Vol] 107 mg/dL High 70-99 [facility] Comment on above: Performed By: #### 2 4317-0 #### [facility] [address] [place] [address] Potassium [Moles/Vol] 3.9 mmol/L Normal 3.6-5.1 [facility] Comment on above: Performed By: #### 2 4317-0 #### [facility] [address] [place] [address] Sodium [Moles/Vol] 136 mmol/L Normal 136-145 [facility] Comment on above: Performed By: #### 2 4317-0 #### [facility] [address] [place] [address] Urea nitrogen [Mass/Vol] 17 mg/dL Normal 8-20 [facility] Comment on above: Performed By: #### 2 4317-0 #### [facility] [address] [place] [address] Urea nitrogen/Creatinine [Mass ratio] 31.5 mg/mg High 12.0-20.0 [facility] Comment on above: Performed By: #### 2 4317-0 #### [facility] [address] [place] [address] Anion gap [Moles/Vol] 8 mmol/L 6 - 18 [facility] Calcium [Mass/Vol] 8.2 mg/dL Low 8.9 - 10. 3 mg/dL [place] [facility] Chloride [Moles/Vol] 101 mmol/L 98 - 10 7 mmol/L [facility] CO2 [Moles/Vol] 27 mmol/L 22 - 32 mmol/L [facility] Creatinine [Mass/Vol] 0.54 mg/dL Low 0.60 - 1.30 mg/dL [facility] GFR/1.73 sq M.predicted among non-blacks MDRD (S/P/Bld) [Vol rate/Area] 111 mL/min/{1.73_m2} - PINF [facility] Comment on above: Effective July 05, 2022, calculation based on the Chronic Kidney Disease Epidemiology Collaboration (CKD-EPI) equation refit without adjustment for race. Glucose [Mass/Vol] 107 mg/dL High 70 - 99 mg/dL [facility] Interpretation and review of laboratory results Abnormal [facility] Potassium [Moles/Vol] 3.9 mmol/L 3.6 - 5.1 mmol/L [facility] Sodium [Moles/Vol] 136 mmol/L 136 - 145 mmol/L [facility] Urea nitrogen [Mass/Vol] 17 mg/dL 8 - 20 mg/dL [facility] Urea nitrogen/Creatinine [Mass ratio] 31.5 mg/mg High 12.0 - 20.0 [facility] Hemogram and platelets WO di fferential panel (Bld)on 12-09-2022 Erythrocyte distribution width (RBC) [Ratio] 14.4 % Normal 11.0-14.8 [facility] Comment on above: Performed By: #### 2 4317-0 #### [facility] [address] [place] [address] Hematocrit (Bld) [Volume fraction] 32.7 % Low 39.0-49.0 [facility] Comment on above: Performed By: #### 2 4317-0 #### [facility] [address] [place] [address] Hemoglobin (Bld) [Mass/Vol] 10.2 g/dL Low 13.5-17.5 [facility] Comment on above: Performed By: #### 2 4317-0 #### [facility] [address] [place] [address] MCH 29.4 pcg Normal 27.0-34.0 [facility] Comment on above: Performed By: #### 2 4317-0 #### [facility] [address] [place] [address] MCHC (RBC) [Mass/Vol] 31.2 g/dL Normal 30.8-35.3 [facility] Comment on above: Performed By: #### 2 4317-0 #### [facility] [address] [place] [address] MCV (RBC) [Entitic vol] 94.2 fL Normal 80.0-97.0 [facility] Comment on above: Performed By: #### 2 4317-0 #### [facility] [address] [place] [address] Platelet mean volume (Bld) [Entitic vol] 8.9 fL Normal 6.2-12.1 [facility] Comment on above: Performed By: #### 2 4317-0 #### [facility] [address] [place] [address] Platelets (Bld) [#/Vol] 355 10*3/uL Normal 142-424 [facility] Comment on above: Performed By: #### 2 4317-0 #### [facility] [address] [place] [address] RBC (Bld) [#/Vol] 3.47 10*6/uL Low 4.30-5.70 [facility] Comment on above: Performed By: #### 2 4317-0 #### [facility] [address] [place] [address] WBC (Bld) [#/Vol] 7.7 10*3/uL Normal 4.6-10.2 [facility] Comment on above: Performed By: #### 2 4317-0 #### [facility] [address] [place] [address] Hemogram and platelets WO di fferential panel (Bld)Ordered By: Ken Ricardo on 12-09-2022 Erythrocyte distribution width (RBC) [Ratio] 14.4 % 11.0 - 14.8 % [facility] Hematocrit (Bld) [Volume fraction] 32.7 % Low 39.0 - 49.0 % [facility] Hemoglobin (Bld) [Mass/Vol] 10.2 g/dL Low 13.5 - 17.5 g/dL [facility] Interpretation and review of laboratory results Abnormal [facility] MCH (RBC) [Entitic mass] 29.4 pg [facility] MCHC (RBC) [Mass/Vol] 31.2 g/dL 30.8 - 35.3 g/dL [facility] MCV (RBC) [Entitic vol] 94.2 fL T [facility] Platelet mean volume (Bld) [Entitic vol] 8.9 fL [facility] Platelets (Bld) [#/Vol] 355 10*3/uL [facility] RBC (Bld) [#/Vol] 3.47 10*6/uL Low [facility] WBC (Bld) [#/Vol] 7.7 10*3/uL [facility] XR ABDOMEN 1 VIEWon 12-10-19 XR ABDOMEN 1 VIEW EXAMINATION TYPE: XR ABDOMEN 1 VIEW DATE OF EXAM : 12/09/2022 12:04 PM HISTORY: abd distention COMPARISON: 11/14/2012 FINDINGS: Nonobstructive bowel gas pattern. Moderate to large amount of stool throughout the colon and in the rectum. Surgical clip in the right upper quadrant. IMPRESSION: Constipation. -------- FINAL REPORT -------- Dictated By: Pierre Bhat Dictated Date: 12/09/2022 12:43 Assigned Physician: Pierre Bhat Reviewed and Electronically Signed By: Pierre Bhat Signed Date: 12/09/2022 12:44 Workstation ID: [id number] Transcribed By: Self Edit Transcribed Date: 12/09/2022 12:43 Normal [facility] XR Abdomen Single viewon Constipation. -------- FINAL REPORT -------- Dictated By: Pierre Bhat Dictated Date: 12/09/2022 12:43 Assigned Physician: Pierre Bhat Reviewed and Electronically Signed By: Pierre Bhat Signed Date: 12/09/2022 12:44 Workstation ID: [id number] Transcribed By: Self Edit Transcribed Date: 12/09/2022 12:43 POWERSCRIBE EXAMINATION TYPE: XR ABDOMEN 1 VIEW DATE OF EXAM : 12/09/2022 12:04 PM HISTORY: abd distention COMPARISON: 11/14/2012 FINDINGS: Nonobstructive bowel gas pattern. Moderate to large amount of stool throughout the colon and in the rectum. Surgical clip in the right upper quadrant. POWERSPierre Wise MD - 12/09/2022 EXAMINATION TYPE: XR ABDOMEN 1 VIEW DATE OF EXAM : 12/09/2022 12:04 PM HISTORY: abd distention COMPARISON: 11/14/2012 FINDINGS: Nonobstructive bowel gas pattern. Moderate to large amount of stool throughout the colon and in the rectum. Surgical clip in the right upper quadrant. IMPRESSION: Constipation. -------- FINAL REPORT -------- Dictated By: Pierre Bhat Dictated Date: 12/09/2022 12:43 Assigned Physician: Pierre Bhat Reviewed and Electronically Signed By: Pierre Bhat Signed Date: 12/09/2022 12:44 Workstation ID: [id number] Transcribed By: Self Edit Transcribed Date: 12/09/2022 12:43 [facility] Radiology Study observation (narrative) [place] [facility] XR Abdomen Single viewOrdere d By: Pierre Bhat on 12-09-2022 [facility] Work Phone: Basic metabolic 2000 panelon 12-08-2022 Anion gap [Moles/Vol] 6 mmol/L Normal 6-18 [facility] Comment on above: Performed By: #### 2 4317-0 #### [facility] [address] [place] [address] Calcium [Mass/Vol] 8.2 mg/dL Low 8.9-10.3 [facility] Comment on above: Performed By: #### 2 4317-0 #### [facility] [address] [place] [address] Chloride [Moles/Vol] 99 mmol/L Normal 98-107 [facility] Comment on above: Performed By: #### 2 4317-0 #### [facility] [address] [place] [address] CO2 [Moles/Vol] 30 mmol/L Normal 22-32 [facility] Comment on above: Performed By: #### 2 4317-0 #### [facility] [address] [place] [address] Creatinine [Mass/Vol] 0.55 mg/dL Low 0.60-1.30 [facility] Comment on above: Performed By: #### 2 4317-0 #### [facility] [address] [place] [address] GFR/1.73 sq M.predicted among non-blacks MDRD (S/P/Bld) [Vol rate/Area] 110 mL/min/{1.73_m2} Normal >=60 [facility] Comment on above: Result Comment: Effe ctive July 05, 2022, calculation based on the?Chronic Kidney Disease Epidemiology Collaboration (CKD-EPI) equation refit?without adjustment for race. Performed By: #### 2 4317-0 #### [facility] [address] [place] [address] Glucose [Mass/Vol] 109 mg/dL High 70-99 [facility] Comment on above: Performed By: #### 2 4317-0 #### [facility] [address] [place] [address] Potassium [Moles/Vol] 3.9 mmol/L Normal 3.6-5.1 [facility] Comment on above: Performed By: #### 2 4317-0 #### [facility] [address] [place] [address] Sodium [Moles/Vol] 135 mmol/L Low 136-145 [facility] Comment on above: Performed By: #### 2 4317-0 #### [facility] [address] [place] [address] Urea nitrogen [Mass/Vol] 14 mg/dL Normal 8-20 [facility] Comment on above: Performed By: #### 2 4317-0 #### [facility] [address] [place] [address] Urea nitrogen/Creatinine [Mass ratio] 25.5 mg/mg High 12.0-20.0 [facility] Comment on above: Performed By: #### 2 4317-0 #### [facility] [address] [place] [address] Anion gap [Moles/Vol] 6 mmol/L 6 - 18 [facility] Calcium [Mass/Vol] 8.2 mg/dL Low 8.9 - 10. 3 mg/dL [facility] Chloride [Moles/Vol] 99 mmol/L 98 - 10 7 mmol/L [facility] CO2 [Moles/Vol] 30 mmol/L 22 - 32 mmol/L [facility] Creatinine [Mass/Vol] 0.55 mg/dL Low 0.60 - 1.30 mg/dL [facility] GFR/1.73 sq M.predicted among non-blacks MDRD (S/P/Bld) [Vol rate/Area] 110 mL/min/{1.73_m2} - PINF [facility] Comment on above: Effective July 05, 2022, calculation based on the Chronic Kidney Disease Epidemiology Collaboration (CKD-EPI) equation refit without adjustment for race. Glucose [Mass/Vol] 109 mg/dL High 70 - 99 mg/dL [facility] Interpretation and review of laboratory results Abnormal [facility] Potassium [Moles/Vol] 3.9 mmol/L 3.6 - 5.1 mmol/L [facility] Sodium [Moles/Vol] 135 mmol/L Low 136 - 145 mmol/L [facility] Urea nitrogen [Mass/Vol] 14 mg/dL 8 - 20 mg/dL [facility] Urea nitrogen/Creatinine [Mass ratio] 25.5 mg/mg High 12.0 - 20.0 [facility] Bacteria identified Anaer cx Nom (Unsp spec)Ordered By: Angelita Lock on 12-07-2022 [facility] Bacteria identified Cx Nom ( Bld)on 12-07-2022 [facility] Basic metabolic 2000 panelon 12-07-2022 Anion gap [Moles/Vol] 7 mmol/L Normal 6-18 [facility] Comment on above: Performed By: #### 3 016-3 #### [facility] [place] [facility] [address] [place] [address] Calcium [Mass/Vol] 8.1 mg/dL Low 8.9-10.3 [facility] Comment on above: Performed By: #### 3 016-3 #### [facility] [address] [place] [address] Chloride [Moles/Vol] 100 mmol/L Normal 98-107 [facility] Comment on above: Performed By: #### 3 016-3 #### [facility] [address] [place] [address] CO2 [Moles/Vol] 29 mmol/L Normal 22-32 [facility] Comment on above: Performed By: #### 3 016-3 #### [facility] [address] [place] [address] Creatinine [Mass/Vol] 0.58 mg/dL Low 0.60-1.30 [facility] Comment on above: Performed By: #### 3 016-3 #### [facility] [address] [place] [address] GFR/1.73 sq M.predicted among non-blacks MDRD (S/P/Bld) [Vol rate/Area] 108 mL/min/{1.73_m2} Normal >=60 [facility] Comment on above: Result Comment: Effe ctive July 05, 2022, calculation based on the?Chronic Kidney Disease Epidemiology Collaboration (CKD-EPI) equation refit?without adjustment for race. Performed By: #### 3 016-3 #### [facility] [address] [place] [address] Glucose [Mass/Vol] 89 mg/dL Normal 70-99 [facility] Comment on above: Performed By: #### 3 016-3 #### [facility] [place] [facility] [address] [place] [address] Potassium [Moles/Vol] 3.9 mmol/L Normal 3.6-5.1 [facility] Comment on above: Performed By: #### 3 016-3 #### [facility] [address] [place] [address] Sodium [Moles/Vol] 136 mmol/L Normal 136-145 [facility] Comment on above: Performed By: #### 3 016-3 #### [facility] [address] [place] [address] Urea nitrogen [Mass/Vol] 16 mg/dL Normal 8-20 [facility] Comment on above: Performed By: #### 3 016-3 #### [facility] [address] [place] [address] Urea nitrogen/Creatinine [Mass ratio] 27.6 mg/mg High 12.0-20.0 [facility] Comment on above: Performed By: #### 3 016-3 #### [facility] [address] [place] [address] Anion gap [Moles/Vol] 7 mmol/L 6 - 18 [facility] Calcium [Mass/Vol] 8.1 mg/dL Low 8.9 - 10. 3 mg/dL [place] [facility] Chloride [Moles/Vol] 100 mmol/L 98 - 10 7 mmol/L [facility] CO2 [Moles/Vol] 29 mmol/L 22 - 32 mmol/L [facility] Creatinine [Mass/Vol] 0.58 mg/dL Low 0.60 - 1.30 mg/dL [facility] GFR/1.73 sq M.predicted among non-blacks MDRD (S/P/Bld) [Vol rate/Area] 108 mL/min/{1.73_m2} - PINF [facility] Comment on above: Effective July 05, 2022, calculation based on the Chronic Kidney Disease Epidemiology Collaboration (CKD-EPI) equation refit without adjustment for race. Glucose [Mass/Vol] 89 mg/dL 70 - 99 mg/dL [facility] Interpretation and review of laboratory results Abnormal [facility] Potassium [Moles/Vol] 3.9 mmol/L 3.6 - 5.1 mmol/L [facility] Sodium [Moles/Vol] 136 mmol/L 136 - 145 mmol/L [facility] Urea nitrogen [Mass/Vol] 16 mg/dL 8 - 20 mg/dL [facility] Urea nitrogen/Creatinine [Mass ratio] 27.6 mg/mg High 12.0 - 20.0 [facility] Culture anaerobicOrdered By: Angelita Lock on 12-07-2022 Bacteria identified Anaer cx Nom (Unsp spec) No anaerobes grown after 4 days. [facility] Laboratory - Microbiology an d Antimicrobial susceptibilityon 12-07-2022 Bacteria identified Cx Nom (Bld) No growth at 5 days [facility] Basic metabolic 2000 panelon 12-06-2022 Anion gap [Moles/Vol] 5 mmol/L Low 6-18 [facility] Comment on above: Performed By: #### 3 016-3 #### [facility] [address] [place] [address] Calcium [Mass/Vol] 7.8 mg/dL Low 8.9-10.3 [facility] Comment on above: Performed By: #### 3 016-3 #### [facility] [address] [place] [address] Chloride [Moles/Vol] 100 mmol/L Normal 98-107 [facility] Comment on above: Performed By: #### 3 016-3 #### [facility] [address] [place] [address] CO2 [Moles/Vol] 30 mmol/L Normal 22-32 [facility] Comment on above: Performed By: #### 3 016-3 #### [facility] [address] [place] [address] Creatinine [Mass/Vol] 0.59 mg/dL Low 0.60-1.30 [facility] Comment on above: Performed By: #### 3 016-3 #### [facility] [address] [place] [address] GFR/1.73 sq M.predicted among non-blacks MDRD (S/P/Bld) [Vol rate/Area] 108 mL/min/{1.73_m2} Normal >=60 [facility] Comment on above: Result Comment: Effe ctive July 05, 2022, calculation based on the?Chronic Kidney Disease Epidemiology Collaboration (CKD-EPI) equation refit?without adjustment for race. Performed By: #### 3 016-3 #### [facility] [address] [place] [address] Glucose [Mass/Vol] 88 mg/dL Normal 70-99 [facility] Comment on above: Performed By: #### 3 016-3 #### [facility] [address] [place] [address] Potassium [Moles/Vol] 4.1 mmol/L Normal 3.6-5.1 [facility] Comment on above: Performed By: #### 3 016-3 #### [facility] [address] [place] [address] Sodium [Moles/Vol] 135 mmol/L Low 136-145 [facility] Comment on above: Performed By: #### 3 016-3 #### [facility] [address] [place] [address] Urea nitrogen [Mass/Vol] 13 mg/dL Normal 8-20 [facility] Comment on above: Performed By: #### 3 016-3 #### [facility] [address] [place] [address] Urea nitrogen/Creatinine [Mass ratio] 22.0 mg/mg High 12.0-20.0 [facility] Comment on above: Performed By: #### 3 016-3 #### [facility] [address] [place] [address] Anion gap [Moles/Vol] 5 mmol/L Low 6 - 18 [facility] Calcium [Mass/Vol] 7.8 mg/dL Low 8.9 - 10. 3 mg/dL [facility] Chloride [Moles/Vol] 100 mmol/L 98 - 10 7 mmol/L [facility] CO2 [Moles/Vol] 30 mmol/L 22 - 32 mmol/L [facility] Creatinine [Mass/Vol] 0.59 mg/dL Low 0.60 - 1.30 mg/dL [facility] GFR/1.73 sq M.predicted among non-blacks MDRD (S/P/Bld) [Vol rate/Area] 108 mL/min/{1.73_m2} - PINF [facility] Comment on above: Effective July 05, 2022, calculation based on the Chronic Kidney Disease Epidemiology Collaboration (CKD-EPI) equation refit without adjustment for race. Glucose [Mass/Vol] 88 mg/dL 70 - 99 mg/dL [facility] Interpretation and review of laboratory results Abnormal [facility] Potassium [Moles/Vol] 4.1 mmol/L 3.6 - 5.1 mmol/L [facility] Sodium [Moles/Vol] 135 mmol/L Low 136 - 145 mmol/L [facility] Urea nitrogen [Mass/Vol] 13 mg/dL 8 - 20 mg/dL [facility] Urea nitrogen/Creatinine [Mass ratio] 22.0 mg/mg High 12.0 - 20.0 [facility] CBC W Ordered Manual Differe ntial panel (Bld)on 12-06-2022 Band form neutrophils/100 WBC (Bld) 2.0 % [facility] Cells Counted Total (Bld) [#] 100 {cells} [facility] Echinocyte/Kemmerer Cells Present Present Abnormal (none) [facility] Eosinophils (Bld) [#/Vol] 0.11 10*3/uL [facility] Eosinophils/100 WBC (Bld) 2.0 % 0.0 - 7.0 % [facility] Interpretation and review of laboratory results Abnormal [facility] Lymphocytes (Bld) [#/Vol] 1.09 10*3/uL [facility] Lymphocytes/100 WBC (Bld) 19.2 % 17.9 - 49.6 % [facility] Metamyelocytes (Bld) [#/Vol] 0.06 10*3/uL High NINF [employer] [facility] Metamyelocytes/100 WBC (Bld) 1.0 % High NINF - 0.0 % [facility] Monocytes (Bld) [#/Vol] 0.23 10*3/uL [facility] Monocytes/100 WBC (Bld) 4.0 % 0.0 - 12.0 % [facility] Myelocytes (Bld) [#/Vol] 0.06 10*3/uL High NINF [facility] Myelocytes/100 WBC (Bld) 1.0 % High RICA F - 0.0 % [facility] Ovalocytes LM Ql (Bld) Present Abnormal (none) [facility] Polychromasia Present 2+ Abnormal (none) [facility] Segmented neutrophils (Bld) [#/Vol] 4.14 10*3/uL [facility] Segmented neutrophils/100 WBC (Bld) 70.7 % 38.1 - 75.5 % [facility] Hemogram and platelets WO di fferential panel (Bld)on 12-06-2022 Band form neutrophils/100 WBC (Bld) 2.0 % Normal [facility] Comment on above: Performed By: #### 3 016-3 #### [facility] ([facility]) LAB [address] [place] [address] Echinocyte/Marcin Cells Present Present Abnormal (none) [facility] Comment on above: Performed By: #### 3 016-3 #### [facility] [address] [place] [address] Elliptocytes/Ovalocytes Present Present Abnormal (none) [facility] Comment on above: Performed By: #### 3 016-3 #### [facility] [address] [place] [address] Eosinophils (Bld) [#/Vol] 0.11 10*3/uL Normal 0.00-0.70 [facility] Comment on above: Performed By: #### 3 016-3 #### [facility] [address] [place] [address] Eosinophils/100 WBC (Bld) 2.0 % Normal 0.0-7.0 [facility] Comment on above: Performed By: #### 3 016-3 #### [facility] ([facility]) LAB [address] [place] [address] Lymphocytes (Bld) [#/Vol] 1.09 10*3/uL Normal 1.00-4.80 [facility] Comment on above: Performed By: #### 3 016-3 #### [facility] ([facility] LAB [facility] [place] [address] Lymphocytes/100 WBC (Bld) 19.2 % Normal 17.9-49.6 [facility] Comment on above: Performed By: #### 3 016-3 #### [facility] ([facility] LAB [facility] [place] [address] Metamyelocytes Absolute 0.06 K/mcL High <=0.00 M [facility] Comment on above: Performed By: #### 3 016-3 #### [facility] ([facility] LAB [facility] [place] [address] Metamyelocytes/100 WBC (Bld) 1.0 % High <=0.0 [facility] Comment on above: Performed By: #### 3 016-3 #### [facility] ([facility] LAB [address] [place] [address] Monocytes (Bld) [#/Vol] 0.23 10*3/uL Normal 0.00-0.90 [facility] Comment on above: Performed By: #### 3 016-3 #### [facility] ([facility] LAB [facility] [place] [address] Monocytes/100 WBC (Bld) 4.0 % Normal 0.0-12.0 M [facility] Comment on above: Performed By: #### 3 016-3 #### [facility] ([facility] LAB [address] [place] [address] Myelocytes Absolute 0.06 K/mcL High <=0.00 [facility] Comment on above: Performed By: #### 3 016-3 #### [facility] [address] [place] [address] Myelocytes/100 WBC (Bld) 1.0 % High <=0.0 [facility] Comment on above: Performed By: #### 3 016-3 #### [facility] [address] [place] [address] Neutrophils Absolute 4.14 K/mcL Normal 1.80-7.70 [facility] Comment on above: Performed By: #### 3 016-3 #### [facility] [address] [place] [address] Neutrophils/100 WBC (Bld) 70.7 % Normal 38.1-75.5 [facility] Comment on above: Performed By: #### 3 016-3 #### [facility] [address] [place] [address] Polychromasia Present 2+ Abnormal (none) [facility] Comment on above: Performed By: #### 3 016-3 #### [facility] [address] [place] [address] Total Counted 100 Normal [facility] Comment on above: Performed By: #### 3 016-3 #### [facility] [address] [place] [address] Hemogram and platelets WO di fferential panel (Bld)Ordered By: Taz Henry on 12-06-2022 Erythrocyte distribution width (RBC) [Ratio] 14.3 % 11.0 - 14.8 % [facility] Hematocrit (Bld) [Volume fraction] 29.9 % Low 39.0 - 49.0 % [facility] Hemoglobin (Bld) [Mass/Vol] 9.5 g/dL Low 13.5 - 17.5 g/dL [facility] Interpretation and review of laboratory results Abnormal [facility] MCH (RBC) [Entitic mass] 30.0 pg [facility] MCHC (RBC) [Mass/Vol] 31.8 g/dL 30.8 - 35.3 g/dL [facility] MCV (RBC) [Entitic vol] 94.[address] [facility] Platelet mean volume (Bld) [Entitic vol] 9.6 fL [facility] Platelets (Bld) [#/Vol] 264 10*3/uL [facility] RBC (Bld) [#/Vol] 3.17 10*6/uL Low [facility] WBC (Bld) [#/Vol] 5.7 10*3/uL [facility] Basic metabolic 2000 panelon 12-05-2022 Anion gap [Moles/Vol] 6 mmol/L Normal 6-18 [facility] Comment on above: Performed By: #### 3 016-3 #### [facility] [address] [place] [address] Calcium [Mass/Vol] 7.9 mg/dL Low 8.9-10.3 [facility] Comment on above: Performed By: #### 3 016-3 #### [facility] [address] [place] [address] Chloride [Moles/Vol] 103 mmol/L Normal 98-107 [facility] Comment on above: Performed By: #### 3 016-3 #### [facility] [address] [place] [address] CO2 [Moles/Vol] 28 mmol/L Normal 22-32 [facility] Comment on above: Performed By: #### 3 016-3 #### [facility] [address] [place] [address] Creatinine [Mass/Vol] 0.56 mg/dL Low 0.60-1.30 [facility] Comment on above: Performed By: #### 3 016-3 #### [facility] [address] [place] [address] GFR/1.73 sq M.predicted among non-blacks MDRD (S/P/Bld) [Vol rate/Area] 109 mL/min/{1.73_m2} Normal >=60 [facility] Comment on above: Result Comment: Effe ctive July 05, 2022, calculation based on the?Chronic Kidney Disease Epidemiology Collaboration (CKD-EPI) equation refit?without adjustment for race. Performed By: #### 3 016-3 #### [facility] [address] [place] [address] Glucose [Mass/Vol] 84 mg/dL Normal 70-99 [facility] Comment on above: Performed By: #### 3 016-3 #### [facility] [address] [place] [address] Potassium [Moles/Vol] 4.2 mmol/L Normal 3.6-5.1 [facility] Comment on above: Performed By: #### 3 016-3 #### [facility] [address] [place] [address] Sodium [Moles/Vol] 137 mmol/L Normal 136-145 [facility] Comment on above: Performed By: #### 3 016-3 #### [facility] [address] [place] [address] Urea nitrogen [Mass/Vol] 15 mg/dL Normal 8-20 [facility] Comment on above: Performed By: #### 3 016-3 #### [facility] [address] [place] [address] Urea nitrogen/Creatinine [Mass ratio] 26.8 mg/mg High 12.0-20.0 [facility] Comment on above: Performed By: #### 3 016-3 #### [facility] [address] [place] [address] Anion gap [Moles/Vol] 6 mmol/L 6 - 18 [facility] Calcium [Mass/Vol] 7.9 mg/dL Low 8.9 - 10. 3 mg/dL [facility] Chloride [Moles/Vol] 103 mmol/L 98 - 10 7 mmol/L [facility] CO2 [Moles/Vol] 28 mmol/L 22 - 32 mmol/L [facility] Creatinine [Mass/Vol] 0.56 mg/dL Low 0.60 - 1.30 mg/dL [facility] GFR/1.73 sq M.predicted among non-blacks MDRD (S/P/Bld) [Vol rate/Area] 109 mL/min/{1.73_m2} - PINF [facility] Comment on above: Effective July 05, 2022, calculation based on the Chronic Kidney Disease Epidemiology Collaboration (CKD-EPI) equation refit without adjustment for race. Glucose [Mass/Vol] 84 mg/dL 70 - 99 mg/dL [facility] Interpretation and review of laboratory results Abnormal [facility] Potassium [Moles/Vol] 4.2 mmol/L 3.6 - 5.1 mmol/L [facility] Sodium [Moles/Vol] 137 mmol/L 136 - 145 mmol/L [facility] Urea nitrogen [Mass/Vol] 15 mg/dL 8 - 20 mg/dL [facility] Urea nitrogen/Creatinine [Mass ratio] 26.8 mg/mg High 12.0 - 20.0 [facility] Hemogram and platelets WO di fferential panel (Bld)on 12-05-2022 Erythrocyte distribution width (RBC) [Ratio] 14.2 % Normal 11.0-14.8 [facility] Comment on above: Order Comment: Pleas e do lucas thanks Performed By: #### 3 016-3 #### [facility] LAB [address] [place] [address] Hematocrit (Bld) [Volume fraction] 33.5 % Low 39.0-49.0 [facility] Comment on above: Order Comment: Pleas e do lucas thanks Performed By: #### 3 016-3 #### [facility] [address] [place] [address] Hemoglobin (Bld) [Mass/Vol] 10.3 g/dL Low 13.5-17.5 [facility] Comment on above: Order Comment: Pleas e do lucas thanks Performed By: #### 3 016-3 #### [facility] [address] [place] [address] MCH 29.4 pcg Normal 27.0-34.0 [facility] Comment on above: Order Comment: Pleas e do lucas thanks Performed By: #### 3 016-3 #### [facility] [address] [place] [address] MCHC (RBC) [Mass/Vol] 30.7 g/dL Low 30.8-35.3 [facility] Comment on above: Order Comment: Pleas e do lucas thanks Performed By: #### 3 016-3 #### [facility] [address] [place] [address] MCV (RBC) [Entitic vol] 95.7 fL Normal 80.0-97.0 [facility] Comment on above: Order Comment: Pleas e do lucas thanks Performed By: #### 3 016-3 #### [facility] [address] [place] [address] Platelet mean volume (Bld) [Entitic vol] 9.7 fL Normal 6.2-12.1 [facility] Comment on above: Order Comment: Pleas e do lucas thanks Performed By: #### 3 016-3 #### [facility] [address] [place] [address] Platelets (Bld) [#/Vol] 249 10*3/uL Normal 142-424 [facility] Comment on above: Order Comment: Pleas e do lucas thanks Performed By: #### 3 016-3 #### [facility] [address] [place] [address] RBC (Bld) [#/Vol] 3.50 10*6/uL Low 4.30-5.70 [facility] Comment on above: Order Comment: Pleas e do lucas thanks Performed By: #### 3 016-3 #### [facility] [address] [place] [address] WBC (Bld) [#/Vol] 5.3 10*3/uL Normal 4.6-10.2 [facility] Comment on above: Order Comment: Pleas e do lucas thanks Performed By: #### 3 016-3 #### [facility] [address] [place] [address] Erythrocyte distribution width (RBC) [Ratio] 14.2 % 11.0 - 14.8 % [facility] Hematocrit (Bld) [Volume fraction] 33.5 % Low 39.0 - 49.0 % [facility] Hemoglobin (Bld) [Mass/Vol] 10.3 g/dL Low 13.5 - 17.5 g/dL [facility] Interpretation and review of laboratory results Abnormal [facility] MCH (RBC) [Entitic mass] 29.4 pg [facility] MCHC (RBC) [Mass/Vol] 30.7 g/dL Low 30.8 - 35.3 g/dL [facility] MCV (RBC) [Entitic vol] 95.7 fL [facility] Platelet mean volume (Bld) [Entitic vol] 9.7 fL [facility] Platelets (Bld) [#/Vol] 249 10*3/uL [facility] RBC (Bld) [#/Vol] 3.50 10*6/uL Low [facility] WBC (Bld) [#/Vol] 5.3 10*3/uL [facility] Basic metabolic 2000 panelon 12-04-2022 Anion gap [Moles/Vol] 8 mmol/L Normal 6-18 [facility] Comment on above: Performed By: #### 3 016-3 #### [facility] LAB [address] [place] [address] Calcium [Mass/Vol] 7.9 mg/dL Low 8.9-10.3 [facility] Comment on above: Performed By: #### 3 016-3 #### [facility] [address] [place] [address] Chloride [Moles/Vol] 102 mmol/L Normal 98-107 [facility] Comment on above: Performed By: #### 3 016-3 #### [facility] [address] [place] [address] CO2 [Moles/Vol] 27 mmol/L Normal 22-32 [facility] Comment on above: Performed By: #### 3 016-3 #### [facility] [address] [place] [address] Creatinine [Mass/Vol] 0.54 mg/dL Low 0.60-1.30 [facility] Comment on above: Performed By: #### 3 016-3 #### [facility] [address] [place] [address] GFR/1.73 sq M.predicted among non-blacks MDRD (S/P/Bld) [Vol rate/Area] 111 mL/min/{1.73_m2} Normal >=60 [facility] Comment on above: Result Comment: Effe ctive July 05, 2022, calculation based on the?Chronic Kidney Disease Epidemiology Collaboration (CKD-EPI) equation refit?without adjustment for race. Performed By: #### 3 016-3 #### [facility] [address] [place] [address] Glucose [Mass/Vol] 92 mg/dL Normal 70-99 [facility] Comment on above: Performed By: #### 3 016-3 #### [facility] [address] [place] [address] Potassium [Moles/Vol] 4.0 mmol/L Normal 3.6-5.1 [facility] Comment on above: Performed By: #### 3 016-3 #### [facility] [address] [place] [address] Sodium [Moles/Vol] 137 mmol/L Normal 136-145 [facility] Comment on above: Performed By: #### 3 016-3 #### [facility] [address] [place] [address] Urea nitrogen [Mass/Vol] 15 mg/dL Normal 8-20 [facility] Comment on above: Performed By: #### 3 016-3 #### [facility] [address] [place] [address] Urea nitrogen/Creatinine [Mass ratio] 27.8 mg/mg High 12.0-20.0 [facility] Comment on above: Performed By: #### 3 016-3 #### [facility] [address] [place] [address] Anion gap [Moles/Vol] 8 mmol/L 6 - 18 Tri [facility] Calcium [Mass/Vol] 7.9 mg/dL Low 8.9 - 10. 3 mg/dL [facility] Chloride [Moles/Vol] 102 mmol/L 98 - 10 7 mmol/L [facility] CO2 [Moles/Vol] 27 mmol/L 22 - 32 mmol/L [facility] Creatinine [Mass/Vol] 0.54 mg/dL Low 0.60 - 1.30 mg/dL [facility] GFR/1.73 sq M.predicted among non-blacks MDRD (S/P/Bld) [Vol rate/Area] 111 mL/min/{1.73_m2} - PINF [facility] Comment on above: Effective July 05, 2022, calculation based on the Chronic Kidney Disease Epidemiology Collaboration (CKD-EPI) equation refit without adjustment for race. Glucose [Mass/Vol] 92 mg/dL 70 - 99 mg/dL [facility] Interpretation and review of laboratory results Abnormal [facility] Potassium [Moles/Vol] 4.0 mmol/L 3.6 - 5.1 mmol/L [facility] Sodium [Moles/Vol] 137 mmol/L 136 - 145 mmol/L [facility] Urea nitrogen [Mass/Vol] 15 mg/dL 8 - 20 mg/dL [facility] Urea nitrogen/Creatinine [Mass ratio] 27.8 mg/mg High 12.0 - 20.0 [facility] Culture aspirateOrdered By: Gm Christian on 12-04-2022 Bacteria identified Anaer cx Nom (Asp) No growth at 2 days [facility] Microscopic observation Gram stain Nom (Unsp spec) No Polymorphonuclear leukocytes [facility] Comment on above: This is an appended report. These results have been appended to a previously preliminary verified report. Microscopic observation Gram stain Nom (Unsp spec) No Epithelial cells [facility] Comment on above: This is an appended report. These results have been appended to a previously preliminary verified report. Microscopic observation Gram stain Nom (Unsp spec) No organisms seen [facility] Comment on above: This is an appended report. These results have been appended to a previously preliminary verified report. [facility] Basic metabolic 2000 panelon 12-03-2022 Anion gap [Moles/Vol] 7 mmol/L Normal 6-18 [facility] Comment on above: Performed By: #### 3 016-3 #### [facility] [address] [place] [address] Calcium [Mass/Vol] 7.8 mg/dL Low 8.9-10.3 [facility] Comment on above: Performed By: #### 3 016-3 #### [facility] [address] [place] [address] Chloride [Moles/Vol] 102 mmol/L Normal 98-107 [facility] Comment on above: Performed By: #### 3 016-3 #### [facility] [address] [place] [address] CO2 [Moles/Vol] 28 mmol/L Normal 22-32 [facility] Comment on above: Performed By: #### 3 016-3 #### [facility] [address] [place] [address] Creatinine [Mass/Vol] 0.72 mg/dL Normal 0.60-1.30 [facility] Comment on above: Performed By: #### 3 016-3 #### [facility] [address] [place] [address] GFR/1.73 sq M.predicted among non-blacks MDRD (S/P/Bld) [Vol rate/Area] 101 mL/min/{1.73_m2} Normal >=60 [facility] Comment on above: Result Comment: Effe ctive July 05, 2022, calculation based on the?Chronic Kidney Disease Epidemiology Collaboration (CKD-EPI) equation refit?without adjustment for race. Performed By: #### 3 016-3 #### [facility] [address] [place] [address] Glucose [Mass/Vol] 137 mg/dL High 70-99 [facility] Comment on above: Performed By: #### 3 016-3 #### [facility] [address] [place] [address] Potassium [Moles/Vol] 3.8 mmol/L Normal 3.6-5.1 [facility] Comment on above: Performed By: #### 3 016-3 #### [facility] [address] [place] [address] Sodium [Moles/Vol] 137 mmol/L Normal 136-145 [facility] Comment on above: Performed By: #### 3 016-3 #### [facility] [address] [place] [address] Urea nitrogen [Mass/Vol] 17 mg/dL Normal 8-20 [facility] Comment on above: Performed By: #### 3 016-3 #### [facility] [address] [place] [address] Urea nitrogen/Creatinine [Mass ratio] 23.6 mg/mg High 12.0-20.0 [facility] Comment on above: Performed By: #### 3 016-3 #### [facility] [address] [place] [address] Anion gap [Moles/Vol] 7 mmol/L 6 - 18 [facility] Calcium [Mass/Vol] 7.8 mg/dL Low 8.9 - 10. 3 mg/dL [facility] Chloride [Moles/Vol] 102 mmol/L 98 - 10 7 mmol/L [facility] CO2 [Moles/Vol] 28 mmol/L 22 - 32 mmol/L [facility] Creatinine [Mass/Vol] 0.72 mg/dL 0.60 - 1.30 mg/dL [facility] GFR/1.73 sq M.predicted among non-blacks MDRD (S/P/Bld) [Vol rate/Area] 101 mL/min/{1.73_m2} - PINF [facility] Comment on above: Effective July 05, 2022, calculation based on the Chronic Kidney Disease Epidemiology Collaboration (CKD-EPI) equation refit without adjustment for race. Glucose [Mass/Vol] 137 mg/dL High 70 - 99 mg/dL [facility] Interpretation and review of laboratory results Abnormal [facility] Potassium [Moles/Vol] 3.8 mmol/L 3.6 - 5.1 mmol/L [facility] Sodium [Moles/Vol] 137 mmol/L 136 - 145 mmol/L [facility] Urea nitrogen [Mass/Vol] 17 mg/dL 8 - 20 mg/dL [facility] Urea nitrogen/Creatinine [Mass ratio] 23.6 mg/mg High 12.0 - 20.0 [facility] Bacteria Spec Anaerobe Culto n 12-02-2022 Bacteria identified Anaer cx Nom (Unsp spec) Culture, Anaerobic Status = F No anaerobes grown after 4 days. Normal [facility] Comment on above: Performed By: #### 2 4317-0 #### [facility] [address] [place] [address] CT GUIDED PERC DRAIN PLCMNTo n 12-02-[address] CT [address]UIDED PERC DRAIN PLCMNT CT guided abscess drain placement INDICATION: Fluid collection postoperatively STAFF: Palmer DEE FLUOROSCOPY TIME: None. COMPLICATIONS: None EBL: <5 ml MEDICATIONS: 2% lidocaine local. PROCEDURE: Time-out was performed to confirm the correct patient, procedure, and site. The patient was placed prone. A site overlying the back was marked prepped and draped in sterile fashion. Skin prep was allowed to fully dry. The skin was anesthetized with LIDOCAINE. Under CT guidance a 12-Austrian pigtail drainage catheter was placed within the collection. 10 mL of serosanguineous fluid was aspirated and sent for analysis. The catheter was sutured to the skin and then attached to gravity drainage. PATIENT DISPOSITION: Discharged from the department in stable condition. IMPRESSION: Technically successful CT-guided 12-Austrian drain placement within postoperative fluid collection in the upper back -------- FINAL REPORT -------- Dictated By: Louie Chakraborty Dictated Date: 12/02/2022 14:39 Assigned Physician: Louie Chakraborty Reviewed and Electronically Signed By: Louie Chakraborty Signed Date: 12/02/2022 14:41 Workstation ID: [id number] Transcribed By: Self Edit Transcribed Date: 12/02/2022 14:39 Normal [facility] CT Guided Perc Drain Plcmnto n 12-02-[address]-guided 12-Austrian drain placement within postoperative fluid collection in the upper back -------- FINAL REPORT -------- Dictated By: Louie Chakraborty Dictated Date: 12/02/2022 14:39 Assigned Physician: Louie Chakraborty Reviewed and Electronically Signed By: Louie Chakraborty Signed Date: 12/02/2022 14:41 Workstation ID: [id number] Transcribed By: Self Edit Transcribed Date: 12/02/2022 14:[address] guided abscess drain placement INDICATION: Fluid collection postoperatively STAFF: Palmer DEE FLUOROSCOPY TIME: None. COMPLICATIONS: None EBL: <5 ml MEDICATIONS: 2% lidocaine local. PROCEDURE: Time-out was performed to confirm the correct patient, procedure, and site. The patient was placed prone. A site overlying the back was marked prepped and draped in sterile fashion. Skin prep was allowed to fully dry. The skin was anesthetized with LIDOCAINE. Under CT guidance a 12-Austrian pigtail drainage catheter was placed within the collection. 10 mL of serosanguineous fluid was aspirated and sent for analysis. The catheter was sutured to the skin and then attached to gravity drainage. PATIENT DISPOSITION: Discharged from the department in stable condition. Louie Landa MD - 12/02/2022 CT guided abscess drain placement INDICATION: Fluid collection postoperatively STAFF: Palmer DEE FLUOROSCOPY TIME: None. COMPLICATIONS: None EBL: <5 ml MEDICATIONS: 2% lidocaine local. PROCEDURE: Time-out was performed to confirm the correct patient, procedure, and site. The patient was placed prone. A site overlying the back was marked prepped and draped in sterile fashion. Skin prep was allowed to fully dry. The skin was anesthetized with LIDOCAINE. Under CT guidance a 12-Austrian pigtail drainage catheter was placed within the collection. 10 mL of serosanguineous fluid was aspirated and sent for analysis. The catheter was sutured to the skin and then attached to gravity drainage. PATIENT DISPOSITION: Discharged from the department in stable condition. IMPRESSION: Technically successful CT-guided 12-Austrian drain placement within postoperative fluid collection in the upper back -------- FINAL REPORT -------- Dictated By: Louie Chakraborty Dictated Date: 12/02/2022 14:39 Assigned Physician: Louie Chakraborty Reviewed and Electronically Signed By: Louie Chakraborty Signed Date: 12/02/2022 14:41 Workstation ID: [id number] Transcribed By: Self Edit Transcribed Date: 12/02/2022 14:39 [facility] Radiology Study observation (narrative) [facility] CULTURE ASPIRATEon 3 CULTURE ASPIRATE Culture, Aspirate Status = F No growth at 2 days Gram Stain Result Status = F No Polymorphonuclear leukocytes This is an appended report. These results have been appended to a previously preliminary verified report. No Epithelial cells This is an appended report. These results have been appended to a previously preliminary verified report. No organisms seen This is an appended report. These results have been appended to a previously preliminary verified report. Normal [facility] Comment on above: Performed By: #### 3 016-3 #### [facility] [address] [place] [address] MR CERVICAL SPINE WO AND W [facility] 12-02-2022 MR CERVICAL SPINE WO AND W CONTRAST EXAMINATION TYPE: MR THORACIC SPINE WO AND W CONTRAST, MR CERVICAL SPINE WO AND W CONTRAST DATE OF EXAM ORDERED: 12/02/2022 2:19 AM HISTORY: pathologic T7 compression fracture with retropulsion, post op fluid collection, likely seroma COMPARISON: CT 12/01/2022, MR 11/10/2022 TECHNIQUE: MR cervical and thoracic spine with and without contrast FINDINGS: THORACIC SPINE: At T7, there is an enhancing mass with associated pathologic compression fracture. There has been progression of vertebral body height loss since the prior examination from 11/10/2022, as well as increased retropulsion of bony fragments into the spinal canal at this level. Retropulsion of bony fragments results in fairly severe narrowing of the thecal sac at this level, as well as cord compression and mildly increased cord signal intensity from the T6-7 through T7-8 levels. The extent of compression is improved compared to the prior preoperative examination from 11/10/2022. Posterior laminectomy has been performed at the T5 level. Smaller enhancing lesions are present in the T10 and T11 vertebral bodies. There has been resection of a mass previously noted at the T2 level, spinal fusion hardware from C7 through T4. A small amount of residual enhancing tissue in the left neural foramen at T2-3 may represent granulation tissue or residual tumor. Previously noted cord compression in this area has improved. In the posterior paraspinal soft tissues, there is a fluid collection along the midline and slightly right of midline extending from the cervicothoracic junction to the T8 level. This abuts the spinous processes and abuts the facet joints near the levels of the surgical hardware. This is also contiguous with the laminectomy defects at the T7 level and in the upper thoracic spine at the areas of fusion. No additional cord signal abnormality is identified. Postsurgical changes are present elsewhere in the paraspinal soft tissues. Trace bilateral pleural effusions are noted. CERVICAL SPINE: Posterior fusion has been performed from C7 through T4. Focal kyphosis is noted in the upper thoracic spine. Alignment is otherwise maintained. There is been resection of the previously noted mass at the T2 level. There is some residual enhancing tissue within the left foramen at the T2-3 level, which could represent residual tumor or granulation tissue. No additional discrete lesion is identified. No abnormal cord signal intensity is identified in the cervical cord. The craniocervical junction is intact. Postsurgical changes are present in the posterior paraspinal soft tissues in the lower cervical and upper thoracic region. In the posterior paraspinal soft tissues near the midline into the right of midline, there is a peripherally enhancing fluid collection extending from the C5 level inferiorly into the upper thoracic region. This extends to the laminectomy defect at the lower cervical and upper thoracic spine. There is no significant associated mass effect on the thecal sac. Evaluation of the lower cervical spine is somewhat limited by susceptibility artifact from surgical hardware. Multilevel mild to moderate degenerative changes are present in the lower cervical spine, grossly similar to the prior examination. IMPRESSION: At the T7 level, there has been progression of a severe compression fracture and retropulsion of bony fragments into the spinal canal. Posterior decompression has been performed at this level. There is compression of the cord at this level with increased cord signal intensity as above. The overall extent of cord compression at this level is decreased compared to the prior postoperative examination from 11/10/2022. Resection of the previously noted mass at the T2 level. There is a small residual enhancing tissue in the left T2-T3 neural foramen, which may represent granulation tissue or an element of residual mass. Cord compression in this area has improved. Enhancing masses in the T10 and T11 vertebral bodies, not significantly changed. In the posterior paraspinal soft tissues, there is a large fluid collection at the midline and slightly right of midline, which extends from approximately the C5 level to the T8 level. There is some extension of the fluid collection to the laminectomy defects at T2 and T7. Some peripheral enhancement is present. This may represent a postoperative seroma, however, sterility is not confirmed. Clinical correlation is recommended. -------- FINAL REPORT -------- Dictated By: Shay Dallas Dictated Date: 12/02/2022 07:20 Assigned Physician: Shay Dallas Reviewed and Electronically Signed By: Shay Dallas Signed Date: 12/02/2022 07:48 Workstation ID: [id number] Transcribed By: Self Edit Transcribed Date: 12/02/2022 07:20 Normal [facility] MR Cervical Spine wo and w [facility] 12-02-2022 Radiology Study observation (narrative) [facility] MR THORACIC SPINE WO AND W [facility] 12-02-2022 MR THORACIC SPINE WO AND W CONTRAST EXAMINATION TYPE: MR THORACIC SPINE WO AND W CONTRAST, MR CERVICAL SPINE WO AND W CONTRAST DATE OF EXAM ORDERED: 12/02/2022 2:19 AM HISTORY: pathologic T7 compression fracture with retropulsion, post op fluid collection, likely seroma COMPARISON: CT 12/01/2022, MR 11/10/2022 TECHNIQUE: MR cervical and thoracic spine with and without contrast FINDINGS: THORACIC SPINE: At T7, there is an enhancing mass with associated pathologic compression fracture. There has been progression of vertebral body height loss since the prior examination from 11/10/2022, as well as increased retropulsion of bony fragments into the spinal canal at this level. Retropulsion of bony fragments results in fairly severe narrowing of the thecal sac at this level, as well as cord compression and mildly increased cord signal intensity from the T6-7 through T7-8 levels. The extent of compression is improved compared to the prior preoperative examination from 11/10/2022. Posterior laminectomy has been performed at the T5 level. Smaller enhancing lesions are present in the T10 and T11 vertebral bodies. There has been resection of a mass previously noted at the T2 level, spinal fusion hardware from C7 through T4. A small amount of residual enhancing tissue in the left neural foramen at T2-3 may represent granulation tissue or residual tumor. Previously noted cord compression in this area has improved. In the posterior paraspinal soft tissues, there is a fluid collection along the midline and slightly right of midline extending from the cervicothoracic junction to the T8 level. This abuts the spinous processes and abuts the facet joints near the levels of the surgical hardware. This is also contiguous with the laminectomy defects at the T7 level and in the upper thoracic spine at the areas of fusion. No additional cord signal abnormality is identified. Postsurgical changes are present elsewhere in the paraspinal soft tissues. Trace bilateral pleural effusions are noted. CERVICAL SPINE: Posterior fusion has been performed from C7 through T4. Focal kyphosis is noted in the upper thoracic spine. Alignment is otherwise maintained. There is been resection of the previously noted mass at the T2 level. There is some residual enhancing tissue within the left foramen at the T2-3 level, which could represent residual tumor or granulation tissue. No additional discrete lesion is identified. No abnormal cord signal intensity is identified in the cervical cord. The craniocervical junction is intact. Postsurgical changes are present in the posterior paraspinal soft tissues in the lower cervical and upper thoracic region. In the posterior paraspinal soft tissues near the midline into the right of midline, there is a peripherally enhancing fluid collection extending from the C5 level inferiorly into the upper thoracic region. This extends to the laminectomy defect at the lower cervical and upper thoracic spine. There is no significant associated mass effect on the thecal sac. Evaluation of the lower cervical spine is somewhat limited by susceptibility artifact from surgical hardware. Multilevel mild to moderate degenerative changes are present in the lower cervical spine, grossly similar to the prior examination. IMPRESSION: At the T7 level, there has been progression of a severe compression fracture and retropulsion of bony fragments into the spinal canal. Posterior decompression has been performed at this level. There is compression of the cord at this level with increased cord signal intensity as above. The overall extent of cord compression at this level is decreased compared to the prior postoperative examination from 11/10/2022. Resection of the previously noted mass at the T2 level. There is a small residual enhancing tissue in the left T2-T3 neural foramen, which may represent granulation tissue or an element of residual mass. Cord compression in this area has improved. Enhancing masses in the T10 and T11 vertebral bodies, not significantly changed. In the posterior paraspinal soft tissues, there is a large fluid collection at the midline and slightly right of midline, which extends from approximately the C5 level to the T8 level. There is some extension of the fluid collection to the laminectomy defects at T2 and T7. Some peripheral enhancement is present. This may represent a postoperative seroma, however, sterility is not confirmed. Clinical correlation is recommended. -------- FINAL REPORT -------- Dictated By: Shay Dallas Dictated Date: 12/02/2022 07:20 Assigned Physician: Shay Dallas Reviewed and Electronically Signed By: Shay Dallas Signed Date: 12/02/2022 07:48 Workstation ID: [id number] Transcribed By: Self Edit Transcribed Date: 12/02/2022 07:20 Normal [facility] MR Thoracic Spine wo and w C [facility] 12-02-2022 Radiology Study observation (narrative) [facility] Panel Informationon 12-02 EXAMINATION TYPE: MR THORACIC SPINE WO AND W CONTRAST, MR CERVICAL SPINE WO AND W CONTRAST DATE OF EXAM ORDERED: 12/02/2022 2:19 AM HISTORY: pathologic T7 compression fracture with retropulsion, post op fluid collection, likely seroma COMPARISON: CT 12/01/2022, MR 11/10/2022 TECHNIQUE: MR cervical and thoracic spine with and without contrast FINDINGS: THORACIC SPINE: At T7, there is an enhancing mass with associated pathologic compression fracture. There has been progression of vertebral body height loss since the prior examination from 11/10/2022, as well as increased retropulsion of bony fragments into the spinal canal at this level. Retropulsion of bony fragments results in fairly severe narrowing of the thecal sac at this level, as well as cord compression and mildly increased cord signal intensity from the T6-7 through T7-8 levels. The extent of compression is improved compared to the prior preoperative examination from 11/10/2022. Posterior laminectomy has been performed at the T5 level. Smaller enhancing lesions are present in the T10 and T11 vertebral bodies. There has been resection of a mass previously noted at the T2 level, spinal fusion hardware from C7 through T4. A small amount of residual enhancing tissue in the left neural foramen at T2-3 may represent granulation tissue or residual tumor. Previously noted cord compression in this area has improved. In the posterior paraspinal soft tissues, there is a fluid collection along the midline and slightly right of midline extending from the cervicothoracic junction to the T8 level. This abuts the spinous processes and abuts the facet joints near the levels of the surgical hardware. This is also contiguous with the laminectomy defects at the T7 level and in the upper thoracic spine at the areas of fusion. No additional cord signal abnormality is identified. Postsurgical changes are present elsewhere in the paraspinal soft tissues. Trace bilateral pleural effusions are noted. CERVICAL SPINE: Posterior fusion has been performed from C7 through T4. Focal kyphosis is noted in the upper thoracic spine. Alignment is otherwise maintained. There is been resection of the previously noted mass at the T2 level. There is some residual enhancing tissue within the left foramen at the T2-3 level, which could represent residual tumor or granulation tissue. No additional discrete lesion is identified. No abnormal cord signal intensity is identified in the cervical cord. The craniocervical junction is intact. Postsurgical changes are present in the posterior paraspinal soft tissues in the lower cervical and upper thoracic region. In the posterior paraspinal soft tissues near the midline into the right of midline, there is a peripherally enhancing fluid collection extending from the C5 level inferiorly into the upper thoracic region. This extends to the laminectomy defect at the lower cervical and upper thoracic spine. There is no significant associated mass effect on the thecal sac. Evaluation of the lower cervical spine is somewhat limited by susceptibility artifact from surgical hardware. Multilevel mild to moderate degenerative changes are present in the lower cervical spine, grossly similar to the prior examination. POWERSMARYE Shay Dallas M D - 12/02/2022 EXAMINATION TYPE: MR THORACIC SPINE WO AND W CONTRAST, MR CERVICAL SPINE WO AND W CONTRAST DATE OF EXAM ORDERED: 12/02/2022 2:19 AM HISTORY: pathologic T7 compression fracture with retropulsion, post op fluid collection, likely seroma COMPARISON: CT 12/01/2022, MR 11/10/2022 TECHNIQUE: MR cervical and thoracic spine with and without contrast FINDINGS: THORACIC SPINE: At T7, there is an enhancing mass with associated pathologic compression fracture. There has been progression of vertebral body height loss since the prior examination from 11/10/2022, as well as increased retropulsion of bony fragments into the spinal canal at this level. Retropulsion of bony fragments results in fairly severe narrowing of the thecal sac at this level, as well as cord compression and mildly increased cord signal intensity from the T6-7 through T7-8 levels. The extent of compression is improved compared to the prior preoperative examination from 11/10/2022. Posterior laminectomy has been performed at the T5 level. Smaller enhancing lesions are present in the T10 and T11 vertebral bodies. There has been resection of a mass previously noted at the T2 level, spinal fusion hardware from C7 through T4. A small amount of residual enhancing tissue in the left neural foramen at T2-3 may represent granulation tissue or residual tumor. Previously noted cord compression in this area has improved. In the posterior paraspinal soft tissues, there is a fluid collection along the midline and slightly right of midline extending from the cervicothoracic junction to the T8 level. This abuts the spinous processes and abuts the facet joints near the levels of the surgical hardware. This is also contiguous with the laminectomy defects at the T7 level and in the upper thoracic spine at the areas of fusion. No additional cord signal abnormality is identified. Postsurgical changes are present elsewhere in the paraspinal soft tissues. Trace bilateral pleural effusions are noted. CERVICAL SPINE: Posterior fusion has been performed from C7 through T4. Focal kyphosis is noted in the upper thoracic spine. Alignment is otherwise maintained. There is been resection of the previously noted mass at the T2 level. There is some residual enhancing tissue within the left foramen at the T2-3 level, which could represent residual tumor or granulation tissue. No additional discrete lesion is identified. No abnormal cord signal intensity is identified in the cervical cord. The craniocervical junction is intact. Postsurgical changes are present in the posterior paraspinal soft tissues in the lower cervical and upper thoracic region. In the posterior paraspinal soft tissues near the midline into the right of midline, there is a peripherally enhancing fluid collection extending from the C5 level inferiorly into the upper thoracic region. This extends to the laminectomy defect at the lower cervical and upper thoracic spine. There is no significant associated mass effect on the thecal sac. Evaluation of the lower cervical spine is somewhat limited by susceptibility artifact from surgical hardware. Multilevel mild to moderate degenerative changes are present in the lower cervical spine, grossly similar to the prior examination. IMPRESSION: At the T7 level, there has been progression of a severe compression fracture and retropulsion of bony fragments into the spinal canal. Posterior decompression has been performed at this level. There is compression of the cord at this level with increased cord signal intensity as above. The overall extent of cord compression at this level is decreased compared to the prior postoperative examination from 11/10/2022. Resection of the previously noted mass at the T2 level. There is a small residual enhancing tissue in the left T2-T3 neural foramen, which may represent granulation tissue or an element of residual mass. Cord compression in this area has improved. Enhancing masses in the T10 and T11 vertebral bodies, not significantly changed. In the posterior paraspinal soft tissues, there is a large fluid collection at the midline and slightly right of midline, which extends from approximately the C5 level to the T8 level. There is some extension of the fluid collection to the laminectomy defects at T2 and T7. Some peripheral enhancement is present. This may represent a postoperative seroma, however, sterility is not confirmed. Clinical correlation is recommended. -------- FINAL REPORT -------- Dictated By: Shay Dallas Dictated Date: 12/02/2022 07:20 Assigned Physician: Shay Dallas Reviewed and Electronically Signed By: Shay Dallas Signed Date: 12/02/2022 07:48 Workstation ID: [id number] Transcribed By: Self Edit Transcribed Date: 12/02/2022 07:20 [place] [employer] EXAMINATION TYPE: CT CERVICAL SPINE W CONTRAST, CT THORACIC SPINE W CONTRAST DATE OF EXAM ORDERED: 12/01/2022 10:12 PM HISTORY: post-op infection concern, recent thoracic lower cervical surgery on 11/11. Drainage from surgical wound, CONTRAST USED: 100 mL ISOVUE-300 COMPARISON: CT thoracic spine 11/11/2022, MRI cervical and thoracic spine 11/10/2022 TECHNIQUE: Contiguous axial, coronal and sagittal images were obtained through the cervical and thoracic spine following intravenous contrast administration. FINDINGS: CT CERVICAL SPINE: Skull base is intact. Atlantoaxial joint is unremarkable. There is convex left scoliosis noted. The vertebrae are otherwise normally aligned. No acute cervical fracture is seen. Disc spaces well-preserved from C2-3 through C4-5. At C5-6 again noted is bulging disc and osteophyte complex without significant spinal stenosis. At C6-7 there is also mild bulging the disc with no significant spinal stenosis. Again noted are changes of posterior instrumented fixation with spinal rods and pedicle screws in the C7 and T1 vertebrae as well as the T3 and T4 vertebrae without acute complication. Destructive changes and severe compression of the T2 vertebral body again noted. Surgical drain is been removed and overlying skin deborah of the lower cervical and thoracic region remain in place. There has been interval development of a large fluid collection in the posterior soft tissues overlying the surgical bed measuring approximately 7 cm in cephalocaudal length maximum transverse diameter of 6.2 cm AP by 11.2 cm transverse on image one series 8 overlying the lower cervical and upper thoracic vertebral bodies, this collection does not communicate with the thecal sac and is likely a large postoperative seroma, it contains no air bubbles to suggest an abscess which is less likely. There is no associated wall enhancement of this fluid collection. Surrounding subcutaneous edema is noted. CT THORACIC SPINE: Severe compression pathologic fracture deformity of the T7 vertebral body has progressed since the prior exam now with vertebral plana deformity. Extensive destructive changes of this vertebra extending into the left-sided pedicle are noted. No obvious enhancing tumor noted within the spinal canal. There is 5 mm of retropulsion of the posterior inferior corner of this fractured vertebral body into the spinal canal noted narrowing of the midline thecal sac diameter to 6 mm with some mild compression of the right thoracic spinal cord not seen on the prior exam. It is difficult to estimate extent of any epidural tumor that may be present at this level. Remaining vertebrae demonstrate no compression fractures, with diffuse marrow abnormalities consistent with metastatic disease.. No other significant spinal stenosis is seen. Ricky Felix M D - 12/02/2022 EXAMINATION TYPE: CT CERVICAL SPINE W CONTRAST, CT THORACIC SPINE W CONTRAST DATE OF EXAM ORDERED: 12/01/2022 10:12 PM HISTORY: post-op infection concern, recent thoracic lower cervical surgery on 11/11. Drainage from surgical wound, CONTRAST USED: 100 mL ISOVUE-300 COMPARISON: CT thoracic spine 11/11/2022, MRI cervical and thoracic spine 11/10/2022 TECHNIQUE: Contiguous axial, coronal and sagittal images were obtained through the cervical and thoracic spine following intravenous contrast administration. FINDINGS: CT CERVICAL SPINE: Skull base is intact. Atlantoaxial joint is unremarkable. There is convex left scoliosis noted. The vertebrae are otherwise normally aligned. No acute cervical fracture is seen. Disc spaces well-preserved from C2-3 through C4-5. At C5-6 again noted is bulging disc and osteophyte complex without significant spinal stenosis. At C6-7 there is also mild bulging the disc with no significant spinal stenosis. Again noted are changes of posterior instrumented fixation with spinal rods and pedicle screws in the C7 and T1 vertebrae as well as the T3 and T4 vertebrae without acute complication. Destructive changes and severe compression of the T2 vertebral body again noted. Surgical drain is been removed and overlying skin deborah of the lower cervical and thoracic region remain in place. There has been interval development of a large fluid collection in the posterior soft tissues overlying the surgical bed measuring approximately 7 cm in cephalocaudal length maximum transverse diameter of 6.2 cm AP by 11.2 cm transverse on image one series 8 overlying the lower cervical and upper thoracic vertebral bodies, this collection does not communicate with the thecal sac and is likely a large postoperative seroma, it contains no air bubbles to suggest an abscess which is less likely. There is no associated wall enhancement of this fluid collection. Surrounding subcutaneous edema is noted. CT THORACIC SPINE: Severe compression pathologic fracture deformity of the T7 vertebral body has progressed since the prior exam now with vertebral plana deformity. Extensive destructive changes of this vertebra extending into the left-sided pedicle are noted. No obvious enhancing tumor noted within the spinal canal. There is 5 mm of retropulsion of the posterior inferior corner of this fractured vertebral body into the spinal canal noted narrowing of the midline thecal sac diameter to 6 mm with some mild compression of the right thoracic spinal cord not seen on the prior exam. It is difficult to estimate extent of any epidural tumor that may be present at this level. Remaining vertebrae demonstrate no compression fractures, with diffuse marrow abnormalities consistent with metastatic disease.. No other significant spinal stenosis is seen. IMPRESSION: 1. Interval progression of severe pathologic fracture of the T7 vertebral body now with vertebral plana, extensive destructive changes including the left-sided pedicle. Interval development of 5 mm of retropulsion of the bone fragment into the spinal canal to the right of midline now with mild compression of the right thoracic spinal cord not seen on the prior exam with 6 mm midline AP thecal sac diameter. 2. Postoperative changes of posterior instrumented fixation from C7 to T4 as noted on 11/11/2022 bridging pathologic fracture at the T2 level. New superficial fluid collection in the posterior soft tissues overlying the surgical bed without communication with the thecal sac likely a postoperative seroma measuring 6 x 11 x 7 cm, this is unlikely to represent an abscess. CRITICAL DOCUMENT ONLY finding communicated directly to Marcello Fisher DO and documented in the [employer] system on 12/02/2022 12:31 AM, Message ID [id number]. -------- FINAL REPORT -------- Dictated By: Ricky Walters Dictated Date: 12/02/2022 00:09 Assigned Physician: Ricky Walters Reviewed and Electronically Signed By: Ricky Walters Signed Date: 12/02/2022 00:32 Workstation ID: [id number] Transcribed By: Self Edit Transcribed Date: 12/02/2022 00:09 [employer] No Panel InformationOrdered By: Shay Dallas on 12-02-2022 [employer] Work Phone: No Panel InformationOrdered By: Ricky Walters on 12-02-2022 [email or web address] Phone: PT Coag (PPP) [Time]on 12-02 aPTT Coag (Bld) [Time] 24.7 s Normal 23.3-35.3 Mo [facility] Comment on above: Performed By: #### 3 016-3 #### [facility] [address] [place] [address] INR Coag (PPP) [Relative time] 1.0 {INR} NINF - 5.0 [facility] [employer] Comment on above: The recommended ther apeutic INR range for most cardiac indications is 2.0-3.0 For high intensity therapy (i.e. mechanical heart valves), the recommended range is 2.5-3.5 Interpretation and review of laboratory results Normal [facility] PT Coag (Bld) [Time] 13.5 s [facility] SARS-CoV-2 (COVID-19) RNA NA A+probe Ql (Resp)on 12-02-2022 Interpretation and review of laboratory results Normal [facility] SARS-CoV-2 (COVID-19) RdRp gene GARTH+probe Ql (Resp) Not detected Not Detected [facility] SARS-CoV-2 RNA Resp Ql GARTH+p robeon 12-02-2022 SARS-CoV-2 (COVID-19) RNA GARTH+probe Ql (Resp) Not detected Normal Not Detected [facility] Comment on above: Performed By: #### 9 4500-6 #### [facility] [address] [place] [address] aPTT Coag (Bld) [Time]on aPTT Coag (PPP) [Time] 24.7 [address] [facility] Interpretation and review of laboratory results Normal [facility] Bacteria Bld Culton 12-02-19 23 Bacteria identified Cx Nom (Bld) Culture, Blood Status = F No growth at 5 days Normal [facility] Comment on above: Order Comment: From a different site than #1. Performed By: #### 2 4317-0 #### [facility] [address] [place] [address] Basic metabolic 2000 panelon 12-01-2022 Anion gap [Moles/Vol] 8 mmol/L 6 - 18 Tri [facility] Calcium [Mass/Vol] 8.4 mg/dL Low 8.9 - 10. 3 mg/dL [facility] Chloride [Moles/Vol] 99 mmol/L 98 - 10 7 mmol/L [facility] CO2 [Moles/Vol] 28 mmol/L 22 - 32 mmol/L [facility] Creatinine [Mass/Vol] 0.54 mg/dL Low 0.60 - 1.30 mg/dL [facility] GFR/1.73 sq M.predicted among non-blacks MDRD (S/P/Bld) [Vol rate/Area] 111 mL/min/{1.73_m2} - PINF [employer] Comment on above: Effective July 05, 2022, calculation based on the Chronic Kidney Disease Epidemiology Collaboration (CKD-EPI) equation refit without adjustment for race. Glucose [Mass/Vol] 118 mg/dL High 70 - 99 mg/dL [facility] Potassium [Moles/Vol] 3.5 mmol/L Low 3.6 - 5.1 mmol/L [facility] Sodium [Moles/Vol] 135 mmol/L Low 136 - 145 mmol/L [facility] Urea nitrogen [Mass/Vol] 18 mg/dL 8 - 20 mg/dL [facility] Urea nitrogen/Creatinine [Mass ratio] 33.3 mg/mg High 12.0 - 20.0 [employer] C-reactive proteinon 023 CRP [Mass/Vol] 13.2 mg/dL High 0.0 - 1.0 mg/dL [employer] CBC W Ordered Manual Differe ntial panel (Bld)on 12-01-2022 Cells Counted Total (Bld) [#] 100 {cells} [facility] Echinocyte/Kemmerer Cells Present Present Abnormal (none) [facility] Eosinophils (Bld) [#/Vol] 0.26 10*3/uL [facility] Eosinophils/100 WBC (Bld) 4.0 % 0.0 - 7.0 % [employer] Interpretation and review of laboratory results Abnormal [facility] Lymphocytes (Bld) [#/Vol] 0.86 10*3/uL Low [facility] [employer] Lymphocytes/100 WBC (Bld) 13.0 % Low 17.9 - 49.6 % [facility] [employer] Monocytes (Bld) [#/Vol] 0.13 10*3/uL [facility] [employer] Monocytes/100 WBC (Bld) 2.0 % 0.0 - 12.0 % [facility] [employer] Ovalocytes LM Ql (Bld) Present Abnormal (none) [facility] Polychromasia Present 1+ Abnormal (none) [facility] Segmented neutrophils (Bld) [#/Vol] 5.35 10*3/uL [facility] [employer] Segmented neutrophils/100 WBC (Bld) 81.0 % High 38.1 - 75.5 % [facility] CRP [Mass/Vol]on 12-01-2022 Anion gap [Moles/Vol] 8 mmol/L Normal 6-18 Traci [facility] Comment on above: Performed By: #### 1 988-5 #### [facility] [address] [place] [address] Calcium [Mass/Vol] 8.4 mg/dL Low 8.9-10.3 [facility] Comment on above: Performed By: #### 1 988-5 #### [facility] [address] [place] [address] Chloride [Moles/Vol] 99 mmol/L Normal 98-107 [facility] Comment on above: Performed By: #### 1 988-5 #### [facility] [address] [place] [address] CO2 [Moles/Vol] 28 mmol/L Normal 22-32 [facility] Comment on above: Performed By: #### 1 988-5 #### [facility] [address] [place] [address] Creatinine [Mass/Vol] 0.54 mg/dL Low 0.60-1.30 [facility]aci [facility] Comment on above: Performed By: #### 1 988-5 #### [facility] [address] [place] [address] GFR/1.73 sq M.predicted among non-blacks MDRD (S/P/Bld) [Vol rate/Area] 111 mL/min/{1.73_m2} Normal >=60 [facility] Comment on above: Result Comment: Effe ctive July 05, 2022, calculation based on the?Chronic Kidney Disease Epidemiology Collaboration (CKD-EPI) equation refit?without adjustment for race. Performed By: #### 1 988-5 #### [facility] [address] [place] [address] Glucose [Mass/Vol] 118 mg/dL High 70-99 [facility] Comment on above: Performed By: #### 1 988-5 #### [facility] [address] [place] [address] Potassium [Moles/Vol] 3.5 mmol/L Low 3.6-5.1 [facility] Comment on above: Performed By: #### 1 988-5 #### [facility] [address] [place] [address] Sodium [Moles/Vol] 135 mmol/L Low 136-145 [facility] Comment on above: Performed By: #### 1 988-5 #### [facility] [address] [place] [address] Urea nitrogen [Mass/Vol] 18 mg/dL Normal 8-20 [facility] Comment on above: Performed By: #### 1 988-5 #### [facility] [address] [place] [address] Urea nitrogen/Creatinine [Mass ratio] 33.3 mg/mg High 12.0-20.0 [facility] Comment on above: Performed By: #### 1 988-5 #### [facility] [address] [place] [address] CERVICAL SPINE W CONTRAST on 12-01-2022 CT CERVICAL SPINE W CONTRAST EXAMINATION TYPE: CT CERVICAL SPINE W CONTRAST, CT THORACIC SPINE W CONTRAST DATE OF EXAM ORDERED: 12/01/2022 10:12 PM HISTORY: post-op infection concern, recent thoracic lower cervical surgery on 11/11. Drainage from surgical wound, CONTRAST USED: 100 mL ISOVUE-300 COMPARISON: CT thoracic spine 11/11/2022, MRI cervical and thoracic spine 11/10/2022 TECHNIQUE: Contiguous axial, coronal and sagittal images were obtained through the cervical and thoracic spine following intravenous contrast administration. FINDINGS: CT CERVICAL SPINE: Skull base is intact. Atlantoaxial joint is unremarkable. There is convex left scoliosis noted. The vertebrae are otherwise normally aligned. No acute cervical fracture is seen. Disc spaces well-preserved from C2-3 through C4-5. At C5-6 again noted is bulging disc and osteophyte complex without significant spinal stenosis. At C6-7 there is also mild bulging the disc with no significant spinal stenosis. Again noted are changes of posterior instrumented fixation with spinal rods and pedicle screws in the C7 and T1 vertebrae as well as the T3 and T4 vertebrae without acute complication. Destructive changes and severe compression of the T2 vertebral body again noted. Surgical drain is been removed and overlying skin deborah of the lower cervical and thoracic region remain in place. There has been interval development of a large fluid collection in the posterior soft tissues overlying the surgical bed measuring approximately 7 cm in cephalocaudal length maximum transverse diameter of 6.2 cm AP by 11.2 cm transverse on image one series 8 overlying the lower cervical and upper thoracic vertebral bodies, this collection does not communicate with the thecal sac and is likely a large postoperative seroma, it contains no air bubbles to suggest an abscess which is less likely. There is no associated wall enhancement of this fluid collection. Surrounding subcutaneous edema is noted. CT THORACIC SPINE: Severe compression pathologic fracture deformity of the T7 vertebral body has progressed since the prior exam now with vertebral plana deformity. Extensive destructive changes of this vertebra extending into the left-sided pedicle are noted. No obvious enhancing tumor noted within the spinal canal. There is 5 mm of retropulsion of the posterior inferior corner of this fractured vertebral body into the spinal canal noted narrowing of the midline thecal sac diameter to 6 mm with some mild compression of the right thoracic spinal cord not seen on the prior exam. It is difficult to estimate extent of any epidural tumor that may be present at this level. Remaining vertebrae demonstrate no compression fractures, with diffuse marrow abnormalities consistent with metastatic disease.. No other significant spinal stenosis is seen. IMPRESSION: 1. Interval progression of severe pathologic fracture of the T7 vertebral body now with vertebral plana, extensive destructive changes including the left-sided pedicle. Interval development of 5 mm of retropulsion of the bone fragment into the spinal canal to the right of midline now with mild compression of the right thoracic spinal cord not seen on the prior exam with 6 mm midline AP thecal sac diameter. 2. Postoperative changes of posterior instrumented fixation from C7 to T4 as noted on 11/11/2022 bridging pathologic fracture at the T2 level. New superficial fluid collection in the posterior soft tissues overlying the surgical bed without communication with the thecal sac likely a postoperative seroma measuring 6 x 11 x 7 cm, this is unlikely to represent an abscess. CRITICAL DOCUMENT ONLY finding communicated directly to Marcello Phillip SALEH and documented in the [employer] system on 12/02/2022 12:31 AM, Message ID [id number]. -------- FINAL REPORT -------- Dictated By: Ricky Walters Dictated Date: 12/02/2022 00:09 Assigned Physician: Ricky Walters Reviewed and Electronically Signed By: Ricky Waletrs Signed Date: 12/02/2022 00:32 Workstation ID: [id number] Transcribed By: Self Edit Transcribed Date: 12/02/2022 00:09 Normal [facility] CT THORACIC SPINE W CONTRAST on 12-01-2022 CT THORACIC SPINE W CONTRAST EXAMINATION TYPE: CT CERVICAL SPINE W CONTRAST, CT THORACIC SPINE W CONTRAST DATE OF EXAM ORDERED: 12/01/2022 10:12 PM HISTORY: post-op infection concern, recent thoracic lower cervical surgery on 11/11. Drainage from surgical wound, CONTRAST USED: 100 mL ISOVUE-300 COMPARISON: CT thoracic spine 11/11/2022, MRI cervical and thoracic spine 11/10/2022 TECHNIQUE: Contiguous axial, coronal and sagittal images were obtained through the cervical and thoracic spine following intravenous contrast administration. FINDINGS: CT CERVICAL SPINE: Skull base is intact. Atlantoaxial joint is unremarkable. There is convex left scoliosis noted. The vertebrae are otherwise normally aligned. No acute cervical fracture is seen. Disc spaces well-preserved from C2-3 through C4-5. At C5-6 again noted is bulging disc and osteophyte complex without significant spinal stenosis. At C6-7 there is also mild bulging the disc with no significant spinal stenosis. Again noted are changes of posterior instrumented fixation with spinal rods and pedicle screws in the C7 and T1 vertebrae as well as the T3 and T4 vertebrae without acute complication. Destructive changes and severe compression of the T2 vertebral body again noted. Surgical drain is been removed and overlying skin deborah of the lower cervical and thoracic region remain in place. There has been interval development of a large fluid collection in the posterior soft tissues overlying the surgical bed measuring approximately 7 cm in cephalocaudal length maximum transverse diameter of 6.2 cm AP by 11.2 cm transverse on image one series 8 overlying the lower cervical and upper thoracic vertebral bodies, this collection does not communicate with the thecal sac and is likely a large postoperative seroma, it contains no air bubbles to suggest an abscess which is less likely. There is no associated wall enhancement of this fluid collection. Surrounding subcutaneous edema is noted. CT THORACIC SPINE: Severe compression pathologic fracture deformity of the T7 vertebral body has progressed since the prior exam now with vertebral plana deformity. Extensive destructive changes of this vertebra extending into the left-sided pedicle are noted. No obvious enhancing tumor noted within the spinal canal. There is 5 mm of retropulsion of the posterior inferior corner of this fractured vertebral body into the spinal canal noted narrowing of the midline thecal sac diameter to 6 mm with some mild compression of the right thoracic spinal cord not seen on the prior exam. It is difficult to estimate extent of any epidural tumor that may be present at this level. Remaining vertebrae demonstrate no compression fractures, with diffuse marrow abnormalities consistent with metastatic disease.. No other significant spinal stenosis is seen. IMPRESSION: 1. Interval progression of severe pathologic fracture of the T7 vertebral body now with vertebral plana, extensive destructive changes including the left-sided pedicle. Interval development of 5 mm of retropulsion of the bone fragment into the spinal canal to the right of midline now with mild compression of the right thoracic spinal cord not seen on the prior exam with 6 mm midline AP thecal sac diameter. 2. Postoperative changes of posterior instrumented fixation from C7 to T4 as noted on 11/11/2022 bridging pathologic fracture at the T2 level. New superficial fluid collection in the posterior soft tissues overlying the surgical bed without communication with the thecal sac likely a postoperative seroma measuring 6 x 11 x 7 cm, this is unlikely to represent an abscess. CRITICAL DOCUMENT ONLY finding communicated directly to Marcello Fisher DO and documented in the [employer] system on 12/02/2022 12:31 AM, Message ID [id number]. -------- FINAL REPORT -------- Dictated By: Ricky Walters Dictated Date: 12/02/2022 00:09 Assigned Physician: Ricky Walters Reviewed and Electronically Signed By: Ricky Walters Signed Date: 12/02/2022 00:32 Workstation ID: [id number] Transcribed By: Self Edit Transcribed Date: 12/02/2022 00:09 Normal [facility] ESR (Bld) [Velocity]on 12-01 Interpretation and review of laboratory results Abnormal [facility] Hemogram and platelets WO di fferential panel (Bld)on 12-01-2022 Echinocyte/Marcin Cells Present Present Abnormal (none) [facility] Comment on above: Performed By: #### 2 4317-0 #### [facility] [address] [place] [address] Elliptocytes/Ovalocytes Present Present Abnormal (none) [facility] Comment on above: Performed By: #### 2 4317-0 #### [facility] [address] [place] [address] Eosinophils (Bld) [#/Vol] 0.26 10*3/uL Normal 0.00-0.70 [facility] Comment on above: Performed By: #### 2 4317-0 #### [facility] [address] [place] [address] Eosinophils/100 WBC (Bld) 4.0 % Normal 0.0-7.0 [facility] Comment on above: Performed By: #### 2 4317-0 #### [facility] [address] [place] [address] Lymphocytes (Bld) [#/Vol] 0.86 10*3/uL Low 1.00-4.80 [facility] Comment on above: Performed By: #### 2 4317-0 #### [facility] [address] [place] [address] Lymphocytes/100 WBC (Bld) 13.0 % Low 17.9-49.6 [facility] Comment on above: Performed By: #### 2 4317-0 #### [facility] [address] [place] [address] Monocytes (Bld) [#/Vol] 0.13 10*3/uL Normal 0.00-0.90 [facility] Comment on above: Performed By: #### 2 4317-0 #### [facility] [address] [place] [address] Monocytes/100 WBC (Bld) 2.0 % Normal 0.0-12.0 [facility] Comment on above: Performed By: #### 2 4317-0 #### [facility] [address] [place] [address] Neutrophils Absolute 5.35 K/mcL Normal 1.80-7.70 [facility] Comment on above: Performed By: #### 2 4317-0 #### [facility] [address] [place] [address] Neutrophils/100 WBC (Bld) 81.0 % High 38.1-75.5 [facility] Comment on above: Performed By: #### 2 4317-0 #### [facility] [address] [place] [address] Polychromasia Present 1+ Abnormal (none) [facility] Comment on above: Performed By: #### 2 4317-0 #### [facility] [address] [place] [address] Total Counted 100 Normal [facility] Comment on above: Performed By: #### 2 4317-0 #### [facility] [address] [place] [address] Hemogram and platelets WO di fferential panel (Bld)Ordered By: Scot Atkinson on 12-01-2022 Erythrocyte distribution width (RBC) [Ratio] 13.6 % 11.0 - 14.8 % [facility] Hematocrit (Bld) [Volume fraction] 32.2 % Low 39.0 - 49.0 % [facility] Hemoglobin (Bld) [Mass/Vol] 10.5 g/dL Low 13.5 - 17.5 g/dL [facility] Interpretation and review of laboratory results Abnormal [facility] MCH (RBC) [Entitic mass] 30.3 pg [facility] MCHC (RBC) [Mass/Vol] 32.6 g/dL 30.8 - 35.3 g/dL [facility] MCV (RBC) [Entitic vol] 93.1 fL T [facility] Platelet mean volume (Bld) [Entitic vol] 9.7 fL [facility] Platelets (Bld) [#/Vol] 167 10*3/uL [facility] RBC (Bld) [#/Vol] 3.46 10*6/uL Low [facility] WBC (Bld) [#/Vol] 6.6 10*3/uL [facility] Lactate (Bld) [Mass/Vol]on 0 12-01-2022 Lactate [Moles/Vol] 0.8 mmol/L Normal 0.5-2.0 [facility] Comment on above: Performed By: #### 5 9032-3 #### [facility] [address] [place] [address] Interpretation and review of laboratory results Normal [facility] Lactate [Moles/Vol] 0.8 mmol/L 0.5 - 2. 0 mmol/L [facility] No Panel Informationon 12-01 Radiology Study observation (narrative) [facility] Interpretation and review of laboratory results Abnormal [facility] Red top grass IgE Qn (S)on 0 12-01-2022 Specimen source Nom (Unsp spec) Hold for add-ons. [facility] Comment on above: Auto resulted. [facility] Sedimentation rateon 023 ESR (Bld) [Velocity] 89 mm/h High [facility] Basic metabolic 2000 panelon 11-16-2022 Anion gap [Moles/Vol] 5 mmol/L Low 6-18 [facility] Comment on above: Performed By: #### 2 4321-2 #### [facility] [address] [place] [address] Calcium [Mass/Vol] 8.2 mg/dL Low 8.9-10.3 [facility] Comment on above: Performed By: #### 2 4321-2 #### [facility] [address] [place] [address] Chloride [Moles/Vol] 101 mmol/L Normal 98-107 [facility] Comment on above: Performed By: #### 2 4321-2 #### [facility] [address] [place] [address] CO2 [Moles/Vol] 29 mmol/L Normal 22-32 [facility] Comment on above: Performed By: #### 2 4321-2 #### [facility] [address] [place] [address] Creatinine [Mass/Vol] 0.71 mg/dL Normal 0.60-1.30 [facility] Comment on above: Performed By: #### 2 4321-2 #### [facility] [address] [place] [address] GFR/1.73 sq M.predicted among non-blacks MDRD (S/P/Bld) [Vol rate/Area] 102 mL/min/{1.73_m2} Normal >=60 [facility] Comment on above: Result Comment: Effe ctive July 05, 2022, calculation based on the?Chronic Kidney Disease Epidemiology Collaboration (CKD-EPI) equation refit?without adjustment for race. Performed By: #### 2 4321-2 #### [facility] [address] [place] [address] Glucose [Mass/Vol] 157 mg/dL High 70-99 [facility] Comment on above: Performed By: #### 2 4321-2 #### [facility] [address] [place] [address] Potassium [Moles/Vol] 4.6 mmol/L Normal 3.6-5.1 [facility] Comment on above: Performed By: #### 2 4321-2 #### [facility] [address] [place] [address] Sodium [Moles/Vol] 135 mmol/L Low 136-145 [facility] Comment on above: Performed By: #### 2 4321-2 #### [facility] [address] [place] [address] Urea nitrogen [Mass/Vol] 28 mg/dL High 8-20 [facility] Comment on above: Performed By: #### 2 4321-2 #### [facility] [address] [place] [address] Urea nitrogen/Creatinine [Mass ratio] 39.4 mg/mg High 12.0-20.0 [facility] Comment on above: Performed By: #### 2 4321-2 #### [facility] [address] [place] [address] Anion gap [Moles/Vol] 5 mmol/L Low 6 - 18 [facility] Calcium [Mass/Vol] 8.2 mg/dL Low 8.9 - 10. 3 mg/dL [employer] [employer] [facility] Chloride [Moles/Vol] 101 mmol/L 98 - 10 7 mmol/L [facility] CO2 [Moles/Vol] 29 mmol/L 22 - 32 mmol/L [facility] Creatinine [Mass/Vol] 0.71 mg/dL 0.60 - 1.30 mg/dL [employer] [facility] GFR/1.73 sq M.predicted among non-blacks MDRD (S/P/Bld) [Vol rate/Area] 102 mL/min/{1.73_m2} - PINF [employer] [employer] [facility] Comment on above: Effective July 05, 2022, calculation based on the Chronic Kidney Disease Epidemiology Collaboration (CKD-EPI) equation refit without adjustment for race. Glucose [Mass/Vol] 157 mg/dL High 70 - 99 mg/dL [facility] Interpretation and review of laboratory results Abnormal [facility] Potassium [Moles/Vol] 4.6 mmol/L 3.6 - 5.1 mmol/L [facility] Sodium [Moles/Vol] 135 mmol/L Low 136 - 145 mmol/L [facility] Urea nitrogen [Mass/Vol] 28 mg/dL High 8 - 20 mg/dL [facility] Urea nitrogen/Creatinine [Mass ratio] 39.4 mg/mg High 12.0 - 20.0 [facility] Hemogram and platelets WO di fferential panel (Bld)on 11-16-2022 Erythrocyte distribution width (RBC) [Ratio] 13.2 % Normal 11.0-14.8 [facility] Comment on above: Performed By: #### 2 4317-0 ####[address] [address] Hematocrit (Bld) [Volume fraction] 31.0 % Low 39.0-49.0 [facility] Comment on above: Performed By: #### 2 4317-0 ####[facility] [id number] [place] [address] Hemoglobin (Bld) [Mass/Vol] 10.6 g/dL Low 13.5-17.5 [facility] Comment on above: Performed By: #### 2 4317-0 ####[facility] [id number] [place] [address] MCH 31.4 pcg Normal 27.0-34.0 [facility] Comment on above: Performed By: #### 2 4317-0 ####[facility] [id number] [place] [address] MCHC (RBC) [Mass/Vol] 34.2 g/dL Normal 30.8-35.3 [facility] Comment on above: Performed By: #### 2 4317-0 ####[address] [address] MCV (RBC) [Entitic vol] 91.7 fL Normal 80.0-97.0 [facility] Comment on above: Performed By: #### 2 4317-0 ####[address] [address] Platelet mean volume (Bld) [Entitic vol] 10.3 fL Normal 6.2-12.1 [facility] Comment on above: Performed By: #### 2 4317-0 ####[address] [address] Platelets (Bld) [#/Vol] 227 10*3/uL Normal 142-424 [facility] Comment on above: Performed By: #### 2 4317-0 ####[address] [address] RBC (Bld) [#/Vol] 3.38 10*6/uL Low 4.30-5.70 [facility] Comment on above: Performed By: #### 2 4317-0 ####[address] [address] WBC (Bld) [#/Vol] 10.1 10*3/uL Normal 4.6-10.2 [facility] Comment on above: Performed By: #### 2 4317-0 ####[address] [address] Erythrocyte distribution width (RBC) [Ratio] 13.2 % 11.0 - 14.8 % [facility] Hematocrit (Bld) [Volume fraction] 31.0 % Low 39.0 - 49.0 % [facility] Hemoglobin (Bld) [Mass/Vol] 10.6 g/dL Low 13.5 - 17.5 g/dL [facility] Interpretation and review of laboratory results Abnormal [facility] MCH (RBC) [Entitic mass] 31.4 pg [facility] MCHC (RBC) [Mass/Vol] 34.2 g/dL 30.8 - 35.3 g/dL [facility] MCV (RBC) [Entitic vol] 91.7 fL T [facility] Platelet mean volume (Bld) [Entitic vol] 10.3 fL [facility] Platelets (Bld) [#/Vol] 227 10*3/uL [facility] RBC (Bld) [#/Vol] 3.38 10*6/uL Low [facility] WBC (Bld) [#/Vol] 10.1 10*3/uL [facility] Pathology studyOrdered By: Apryl Mullen on 11-16-2022 Citation Johnny (Reference lab test) [id number] FuZzEwMzNcZnRuYmpcdWMx FOxhkpPnJNpwb4BcL0WrNc AwMFxhbnNpXGRlZmxhbmcx HCUzJYK2jbSwPSFiPNebBU VjJZvqIp6doSDllKqxVpTq AEGgg4iidnZPUWscDYSOTT z5s7jeXGPzJqK0uYWiSIwl O4htuiVmqYLzU2Jlz0HxAB q9rC43WWMlqH7ylZFeFJbf rtLfSyQ9YAtjLKHjNwF4VM XoiTGwWMWyJ3lrMTLsGLqe mtSqfyF6HSUhmXWuOVB2MD NcMHAgF5XlOJ9kISVzeSXy TUc2e3gzwRdoMGUaZRL0m6 txRTzaedBcTW6efy6dzHj7 t6awfcQuWCNbHNIyqTFSVZ EcP8OhaAdhAj5ufIt6fTly IzjgQOW8Yex2QL5qzg53th v9pFsxUHQyhijvLaJ3TVhf DIRrxmmmXQz5BZaiSBBxvD J4SZQmeXPfM5MkGKAzOO9d wmy5GEF4AEeeWGRdIkB2CX JhjDSdSYVcmRdvPPafd549 WGD7BzZiWQ8kW7Ppt1D4gN 9maXRcZGVmdGFiNzIwXGZv iz2abZTqKYsom4EwDLZ4dm Z6sOXmjUVyHZTsFK55Dddm z2AoTckuDFR8UWZsjdGdv7 Hno1udVmEoslFvW4jvS7Zl ZHJoZWFkXHBnYnJkcmZvb3 Vca8EeuXBtoVx8h6kpWGNe XDXdbVzii7ncDGJ9OVZeK8 D3kSJzh6srNQroDTTfmEY4 zeJ1XPVrbKMdK5AdwW7uLM AmCC7qsft8j9hmVGQ1KXjf KYWgBjW5lqH4CVEhuAUxCV FcuBwlUKdud449JPN1JqJz YBHtz8PhC3EabPfaZ50umK dsF85nZNHpuJihiN0uqIlq yL6iZxTdAvFcEOfixCauzX HugejwLUliegE2CQeiwiye SPEmSDmbQ6jtZfCvEIGpbW sjNSbzb1ZhVXSvRBKqFlec qxO2DFxjMH27UXfkwBDks5 tay8EwV5fusJqhrXB0VA3p UJBmOLPjAZgye2VyvE4mkY YxXCOguzU1uHFubS09AMIl xnD6FUVnv17al4NuhPiqbt PtCOUmEQslalQxWZWxm2Pw RDSkGFNjDW89yeGoY3EgtO ZnMZYdbhToQZvssZ2qq8j5 GXxzXh5pCUmsz5IlbTOeuG BvfOU3WDWus5EdOoYjrxWh mEKxtwZpML2bLTUzqNQnwz YlDTN7RBIySVADGpYjKHUb n0MzKK2jARBvaNvqGCLveF 1jw8EeZQKjj50sLPEgACPV REEgaGFzIGRldGVybWluZW QgdGhhdCBzdWNoIGNsZWFy IE4wPLNwxxCedXYkt8FthC XajhMbp1GwcyTbBEPmWZA1 DiEKjGNwEVA5UCV9ktSkek UldTStENAwj9GyO8llrgkx IEikpJVdfI5kESRkPC5eNT Xpz8WyBGWqt6IgWaVadjZd KQJvJICkMSSfpD96DEF3lA ieyElfgeXaXP7wQEEqbvBd MTDrRUDdbL6tNJevvgNdVD BywaT5o8W0LOdzVZMqutMa ZucrHXK3jpWrFXTep8JxCD atN4usH32nkJzvyFg9jYG1 INS2dG5pSOCwPLWqMGCqTN BDbGluaWNhbCBMYWJvcmF0 e5J9JEoroXVvtbDzGE80AW CcWZ0msDPtnVWgi2CzCBs1 JB1hUSsxNVNtpaQvb4kvKH Tdf3wdDCJfdh8xarvcmDAt qmImM1Pmsrs4sL6goVCyBO Oyvb90PBC1CqNbKE7rbStd QPAqPG9kUEYgU0mefU6abb k5LcMxd8fxbCAbAMLnzQCk AtDhHHRxVFKnx8iqBLGkwY FuZzEwMzNcZnRuYmpcdWMx VBEgHfQat6jet009wRAok2 uoTUTjYgV2nYYeRLUxF52n BXXWR175HURyNUsca2hvy7 DnTTVbrTNdy7U4GBVSLGpu FFUFSMi2aVuwQ87be6J4Og hdH5eyMNCyARHoA3WfXD5a NHPgMgj0ZSM8ANP4BKBxXE K9OZqoOEGvQXTyUkx7VWE1 IDtccmVkMTQzXGdyZWVuMT ZdDQKuhSGgACIuP4hyAWBm WMgjDBTlYHchoOAuUTR4dC evi3V7zLTxjGYflOxkMfZh MuBfGsYVu2EgJAm8tDorM0 WpOOJuWeA5bEEnMWKwEXoi GTVoIZIsdtH8fW52AAuuwz X0fTBqz7Xvp71uu244sL9b zEExRVT4HTUvXWOqrWCxET ZiBLD9HXHvuUUrD3rjHXEc QY5dasvnQKbyBKhsWIFguO U7NVBfaYThR3QaQSRrKLqh XLQugfy1MxYeGd6edODteH gpEBiow0vhh0ovfLTwIwt3 VKHdBjOeSrfhNBgey9Aee7 eeDJIgmv0wBVT1aJUhmEbu t0O9gTKvZRLqaZAbmyPtOF UpKaC4CAsnUX3ukz49VTXg JCV4bj9vcNIxhPbjnhMjzZ XaHZalI6EvIUUgf792GAGz U3AlNXYqa0N9yaCbKzXgWO TyuUN7kqC9DXOrPWq8xZTu jpD3cbYgiHYgG1zkwV9hRP FjJB9kppxie7qvEEkhKOri SDRdlRS7knP1MOUtnHKpB1 MowX9nUSKsOJyxTZFtjyv8 YjKlUo1alWRljZrpTFovRl twYWdlXHBnbmNvbnRccGdu ZGVjXHBsYWluXHBsYWluXG DyBXFaKqLqwKwxmEtluK1s HpHnHsEvSLxgET8yBBDgE6 lohKFsEYDuMTGlW5slQoOc dY5zcBzoQFgbAzCoCuQsQM crHGYhGYE9HDFpcyzcSHbv M35exX3zEW71NFqdmoLfOW Xxf3TkINDxRUOwFPfrTNPm ydUyGZsgwW3ej6e8JLbdFv 0iZYQicdiqRFF1MvZnXP29 YmxldHJlZSBBdmUsIENvbH VtYnVzLCBPaGlvIDQzMjI5 WpVBrSVij7Yzg8OgXoPcsT XlwY6hxKscooD2GDMlwEVd Ck6siQYlGurenIFjhnblJQ utmbB2GXxxjwidBFKiLUyd J6toFbYbLNGijCnnGElcs7 EgGMOhVPOuB8zjwjG1QTal wAKgAOSpjq76vF== [facility] [employer] Work Phone: Microscopic description Johnny (End[employer]ium) a0cswUVaFSFhmGAPRNYeWA JgYC2jjFfbjGw0dZccISPn kmV3lGRxYNrxq0tqMZN5x7 jxtrUHJxqhYIBwFT8wCUzt AJIyZD6bCcHvMSHeFvFiQG BhcGVydzEyMjQwXHBhcGVy cPF5HUFvVK0jdvljRUywGI nlETCkisJ8COIuaWIhS6Tl QMPdCJ5qpvzaWCV5DNZVVm rcVj2srBAjhFLLUjdqQtMa ZmNoYXJzZXQwXGZuaWwgQX XeINx3kE7Og4vwRsmqN8hq jhNjmGLnIu0nrKPZPZybAL YYFLn0iQ6EHOApJ2TeAI4R n7tfLIWddVZhOXF6KYokc7 lvETxhDJP4YYTsZSOaNOCy NY5PSbPjFBHjVzE2ARWtGe M4QSe1CCYZJIQpRQq2ZXOs WKi2HOz1NAsqazptGLq6RD IfIJrwiFNwWF2mvZlxXugl nNnvl0KpqBMjLVQcDSdixQ QgNTEwMDIgXFxkYiBPVlIg XaUlZuFzKCtmAyViFEa3RR vwP1EUZJCwJJY7FVUwHjZ3 ZcD7EEl4PZKERh8jRjz7Oa Y2XBA1VRZ0PMQmEKIiESNk MiBcXHNzIDMgXFxmbCBcXG 1shFmpRYFbXR9BSHOwPMdo PPQgLIYlQjLjSQ2uD4Enrt JrWRQyc4ReR0kaUAEJDLcT QUwgRVBJRFVSQUwgVFVNT1 IgLSBQRVJNOlxwYXIgDQpc cGFyZCANClxwbGFpblxmMV ilouFpDMTnGUfjQFq2gvWh LCZvLgBmIRByH57uv1MHp8 BpHP2IIAb9phAszusnbG4v XHJpbjAgDQpcZjFcZnMyMC TWECGloRSfHWYpbwXjm8Wr YWxpbiBsYWJlbGVkIHdpdG ggdGhlIHBhdGllbnQncyBu FO6iBUYdQYOyt4LomoIvJM UdlUH3uaHySLJ6zG3tWzDf cyBhIDIgeCAxLjUgeCAwLj GfP71tNGrrjzFbUIQtOE7g MN47tQRbjNagXHHaYZoiFD 74ccUaShXhORDhWxOhr86v ldSsP7LlPWJqJiPgoYqfz6 VlLiAgVGhlIHNwZWNpbWVu QJseQDT3Yl5cbHViMIYytc GbedLomDMajhQubF7uy2Jz UTHnSU5yWIDxEjvvWEFbOG tfb6SxEFxrgIfqCOIaBsSe FZgxERBbVFigXAPoY31rl1 JHm6Jmy3nrnExiu2QmdCMp NM13ZMVvdVXjFMN7RP6wpQ xwYXIgDQpccGFyZCANClxm MckhmzVvAK3YzV== [facility] Work Phone: Pathology report final diagnosis Narrative o6fpdSTiNJGfbHSpNSPySU tnitQkMNXnrFVjR7Xzsmpw IPxmYP0hMN6kzGvmfIRprM IbUGQeAaBry4jws614oOQb e5lhVDIWnbvgeUg0vCcdX1 4vf3F3EfvcB6oxSTHdQAiz YHLlHGndhJMoYHq6WETmqX VydzEyMjQwXHBhcGVyaDE1 GZNyKQ9zktyjLUciUYvaHX BzelC6GOSxiJSkM2OmAEPv PC2affjeLKN4RNdaTMRiDE N1IuDnMUOuc3Pddmi0NxVd bCa9w0loNTNaOWUqxGmcl8 fcXGC6WSShvCGiL1pvwW9v JISjBZ0nvpmyw5qzROyrCZ yeUAYltPA5ybQ4MOApyIBz W4DjwX7lDUHmVPFvbxWuaI ijImX1REosgGAnfeklOiHo F7BvebUxEALrqKH4vaObXL 0ed2G6VTJvcsGgET5mY3Jx hNAeskCcsMDaY9UxGHmhoU iqz97eWIQkzOogufIatDom e97bBSUhlkVjBV7iH3NvQI 5vdGUuXHBhclxwYXJccGFy AGLnVwBxJq68LJwveROgPD Wtf1LjaNCwj84cqRO0cpQf PvHbicWsjREtqVQht6VyoU hxn7IjNFRoLGJlaZwiTA42 kVntC64ht7ozfMzhQlVnSx OzsARqqFJaB9NxvQRxq2i1 nONecSyalFMcoEEuNGS3aW Oxfh8vPTsxyTCzv2Sfsu90 qROrn6Zwh3BnpU5aNDJzfo Orsk7pOKR4aCPhQHMuIAO2 LSOmRHYifkYsv6xaWTNqs0 irnJdse10vTSAaeEucwgNp X8Jaeln1eFO0jTYfIBMPGW U0XRcduBiveRFzVL4ysR5a jwKfpPLjTKPiXQQHX5bfk6 MllZ6smopbQBXAzfAynWnt pTXpM5BltVXmZX6rQEDpNM ACYEImf1j9uUSwDKMfCWQr YSBjZWxscyBhcmUgcHJlc2 SxkG6nAE6mu1CyRPJ6mTNq I1XuzEEfHUCyDS1hL5D2cI ZlIGZvciBDRDIwLCBDRDMs LTO0gK5jCRKibZksFYYMDP 2PHDMgVUN4iK0gYROerCkn VIOHQQG0FvMdMJ1dkNFoYR XpXUoWMrC9RFNpcK9bpYGf rPt4c0uhCMSdGTJpjOBkhF 5rlpYxuT0wLBBmeDDmUPWy TP0eCBDmWLOmRICjuiCkt3 YakvRfy1h8tOArDDcnpEZt ICVeo4ZsmNP7LXXqpXjvr2 0oFUMqyFyizsKqcVcqm54f ICBEaWZmZXJlbnRpYWwgZG xgU09yc9iqUUlaZ9j4CPRs oZIxrEpmkOGodWwfcB7xRY 6aGKFtA16bhzSxYHSac48t w6l9vIJghCufeUUpjPJilQ 4hvV1tpaFfihEscNlpGCW8 SIBoHNOfuvzmWTNdF9XkDA CzYXHjNKW2ZYNfo2Lgn02e LPBzyFpdjH9fkPB2XYjyVQ 65cbIlwg65yPwaz4jwCIGb zqK7hhRoTIDvkt9= [facility] Work Phone: Service comment (Unsp spec) [Interp] k3imuJTaAHVsf9blODVmyL FuZzEwMzNcZnRuYmpcdWMx FSnuspShEKvdm7LnF5EpKw AwMFxhbnNpXGRlZmxhbmcx TUZmTDV3ufJwACNiJMmeLF KjQIbhRo5ikZAphJwsDpCm JNPyb4vzvpFMikiznVw4j1 rgXOFhGhU6jHMgYBhjE4st ttUztXNlXPTjDCi5eX52WJ TwdK1nnHPiGYwfehHvUoZ3 LEurVOJpRwE8CGZvxKYyJY CvZ1wdXMYtCQtjOAEnQAgi jKAeQAS3mYtkx2J3dRYjsN YdqDdzNgPxYaUoXgEBl6Sm RBb7lMakE3BwEKThUiY3nU QgUGFyYWdyYXBoIEZvbnQ7 sU21FEbtnsG7gEKku7Bkr8 6qe283wT8urRAwMRT6DHZw XWKhnEZwHSXfRWT8TXJknE PlT1kuPPHzBA9bdifqNNus AYokJZLgdUA7GZPmhPQbE5 TcTBWiAJsqRQCxxqc6VhQc Uj7edYSpaDmmOFhlk6yww4 syeRKlJiq5GOReSrRqGhtj BHdgd2Oaj6eyMQZsrk7rAA E3wPWgvBfoq9M6dELaYRFr vWKweuGnXCBiUnJ2FUmtDX 7nfs68NMPxEAS4rk0voEVp sOfxkqUdjSBqHZtiS9SyLX Pgi996WSVmA8KtOUOzh4U8 lnKzXqEtCRDefLF7jxU3RX LgPGv4yOTipjO6sdNshAIr K6wovS6gKWEkKZ6rezqys3 stPGxsNDznGTOvqZF0ohT6 CMVtlBRrQ1OkjR0bSPYnLT ctJHBijbj7CyUjYc2wqARq eTcyMFxzYmtwYWdlXHBnbm NvbnRccGduZGVjXHBsYWlu XHBsYWluXGYwXGZzMjRccW fsmYoqeJ0sKtXwBkDkOMgi PX3rVHVpA8heoIBxSYRwPG VvK5heBeUhrV6pqArqQVkq czIwIEZpbmFsIERpYWdub3 LdbzD0JICdmkU9kOT0FOUq RWJdxS2bAGesfTLfDJMoHH Z0oNCioPIoJEYlllS1lSFk RYAhef21 [facility] Phone: [facility] Phone: Basic metabolic 2000 panelon 11-15-2022 Anion gap [Moles/Vol] 4 mmol/L Low 6-18 [facility] Comment on above: Performed By: #### 2 4321-2 ####[address] [address] Calcium [Mass/Vol] 8.6 mg/dL Low 8.9-10.3 [facility] Comment on above: Performed By: #### 2 4321-2 ####[address] [address] Chloride [Moles/Vol] 100 mmol/L Normal 98-107 Moun [facility] Comment on above: Performed By: #### 2 4321-2 ####[address] [address] CO2 [Moles/Vol] 29 mmol/L Normal 22-32 [facility] Comment on above: Performed By: #### 2 4321-2 ####[address] [address] Creatinine [Mass/Vol] 0.64 mg/dL Normal 0.60-1.30 [facility] Comment on above: Performed By: #### 2 4321-2 ####[address] [address] GFR/1.73 sq M.predicted among non-blacks MDRD (S/P/Bld) [Vol rate/Area] 105 mL/min/{1.73_m2} Normal >=60 [facility] Comment on above: Result Comment: Effe ctive July 05, 2022, calculation based on the?Chronic Kidney Disease Epidemiology Collaboration (CKD-EPI) equation refit?without adjustment for race. Performed By: #### 2 4321-2 ####[address] [address] Glucose [Mass/Vol] 148 mg/dL High 70-99 [facility] Comment on above: Performed By: #### 2 4321-2 ####[address] [address] Potassium [Moles/Vol] 4.3 mmol/L Normal 3.6-5.1 [facility] Comment on above: Performed By: #### 2 4321-2 ####[address] [address] Sodium [Moles/Vol] 133 mmol/L Low 136-145 [facility] Comment on above: Performed By: #### 2 4321-2 ####[address] [address] Urea nitrogen [Mass/Vol] 26 mg/dL High 8-20 [facility] Comment on above: Performed By: #### 2 4321-2 ####[address] [address] Urea nitrogen/Creatinine [Mass ratio] 40.6 mg/mg High 12.0-20.0 [facility] Comment on above: Performed By: #### 2 4321-2 ####[facility] [id number] [place] [address] Anion gap [Moles/Vol] 4 mmol/L Low 6 - 18 [facility] Calcium [Mass/Vol] 8.6 mg/dL Low 8.9 - 10. 3 mg/dL [facility] Chloride [Moles/Vol] 100 mmol/L 98 - 10 7 mmol/L [facility] CO2 [Moles/Vol] 29 mmol/L 22 - 32 mmol/L [facility] Creatinine [Mass/Vol] 0.64 mg/dL 0.60 - 1.30 mg/dL [facility] GFR/1.73 sq M.predicted among non-blacks MDRD (S/P/Bld) [Vol rate/Area] 105 mL/min/{1.73_m2} [facility] Comment on above: Effective July 05, 2022, calculation based on the Chronic Kidney Disease Epidemiology Collaboration (CKD-EPI) equation refit without adjustment for race. Glucose [Mass/Vol] 148 mg/dL High 70 - 99 mg/dL [facility] Interpretation and review of laboratory results Abnormal [facility] Potassium [Moles/Vol] 4.3 mmol/L 3.6 - 5.1 mmol/L [facility] Sodium [Moles/Vol] 133 mmol/L Low 136 - 145 mmol/L [facility] Urea nitrogen [Mass/Vol] 26 mg/dL High 8 - 20 mg/dL [facility] Urea nitrogen/Creatinine [Mass ratio] 40.6 mg/mg High 12.0 - 20.0 [facility] Hemogram and platelets WO di fferential panel (Bld)on 11-15-2022 Erythrocyte distribution width (RBC) [Ratio] 13.1 % Normal 11.0-14.8 [facility] Comment on above: Performed By: #### 2 4317-0 ####[facility] [id number] [place] [address] Hematocrit (Bld) [Volume fraction] 31.2 % Low 39.0-49.0 [facility] Comment on above: Performed By: #### 2 4317-0 ####[address] [address] Hemoglobin (Bld) [Mass/Vol] 10.7 g/dL Low 13.5-17.5 [facility] Comment on above: Performed By: #### 2 4317-0 ####[address] [address] MCH 31.4 pcg Normal 27.0-34.0 [facility] Comment on above: Performed By: #### 2 4317-0 ####[address] [address] MCHC (RBC) [Mass/Vol] 34.3 g/dL Normal 30.8-35.3 [facility] Comment on above: Performed By: #### 2 4317-0 ####[address] [address] MCV (RBC) [Entitic vol] 91.5 fL Normal 80.0-97.0 [facility] Comment on above: Performed By: #### 2 4317-0 ####[address] [address] Platelet mean volume (Bld) [Entitic vol] 10.4 fL Normal 6.2-12.1 [facility] Comment on above: Performed By: #### 2 4317-0 ####[address] [address] Platelets (Bld) [#/Vol] 204 10*3/uL Normal 142-424 [facility] Comment on above: Performed By: #### 2 4317-0 ####[address] [address] RBC (Bld) [#/Vol] 3.41 10*6/uL Low 4.30-5.70 [facility] Comment on above: Performed By: #### 2 4317-0 ####[facility] [id number] [place] [address] WBC (Bld) [#/Vol] 7.7 10*3/uL Normal 4.6-10.2 [facility] Comment on above: Performed By: #### 2 4317-0 ####[facility] [id number] [place] [address] Erythrocyte distribution width (RBC) [Ratio] 13.1 % 11.0 - 14.8 % [facility] Hematocrit (Bld) [Volume fraction] 31.2 % Low 39.0 - 49.0 % [facility] Hemoglobin (Bld) [Mass/Vol] 10.7 g/dL Low 13.5 - 17.5 g/[facility] of [facility] results Abnormal [facility] MCH (RBC) [Entitic mass] 31.4 pg [facility] MCHC (RBC) [Mass/Vol] 34.3 g/dL 30.8 - 35.3 g/dL [facility] MCV (RBC) [Entitic vol] 91.5 fL [facility] Platelet mean volume (Bld) [Entitic vol] 10.4 fL [facility] Platelets (Bld) [#/Vol] 204 10*3/uL [facility] RBC (Bld) [#/Vol] 3.41 10*6/uL Low [facility] WBC (Bld) [#/Vol] 7.7 10*3/uL [facility] XR ABDOMEN 1 VIEWon 11-15-19 XR ABDOMEN 1 VIEW EXAMINATION TYPE: XR ABDOMEN 1 VIEW DATE OF EXAM: 11/14/2022 11:20 PM HISTORY: Abd pain, unspecified. COMPARISON PLAIN FILM: NONE FINDINGS: No bowel dilatation. There is a large amount of colonic stool. Cholecystectomy clips are noted. The osseous structures are grossly intact. IMPRESSION: No bowel dilatation. A large amount of colonic stool is noted. -------- FINAL REPORT -------- Dictated By: Andrey Perkins Dictated Date: 11/15/2022 00:06 Assigned Physician: Andrey Perkins Reviewed and Electronically Signed By: Andrey Perkins Signed Date: 11/15/2022 00:09 Workstation ID: [id number] Transcribed By: Self Edit Transcribed Date: 11/15/2022 00:06 -------- FINAL REPORT -------- Dictated By: Andrey Perkins Dictated Date: 11/15/2022 00:06 Assigned Physician: Andrey Perkins Reviewed and Electronically Signed By: Andrey Perkins Signed Date: 11/15/2022 00:09 Workstation ID: [id number] Transcribed By: Self Edit Transcribed Date: 11/15/2022 00:06 EXAMINATION TYPE: XR ABDOMEN 1 VIEW DATE OF EXAM: 11/14/2022 11:20 PM HISTORY: Abd pain, unspecified. COMPARISON PLAIN FILM: NONE FINDINGS: No bowel dilatation. There is a large amount of colonic stool. Cholecystectomy clips are noted. The osseous structures are grossly intact. IMPRESSION: No bowel dilatation. A large amount of colonic stool is noted. -------- FINAL REPORT -------- Dictated By: Andrey Perkins Dictated Date: 11/15/2022 00:06 Assigned Physician: Andrey Perkins Reviewed and Electronically Signed By: Andrey Perkins Signed Date: 11/15/2022 00:09 Workstation ID: [id number] Transcribed By: Self Edit Transcribed Date: 11/15/2022 00:06 Normal [facility] XR Abdomen Single viewon Addendum by Andrey Perkins MD on 11/15/2022 12:09 AM EST EXAMINATION TYPE: XR ABDOMEN 1 VIEW DATE OF EXAM: 11/14/2022 11:20 PM HISTORY: Abd pain, unspecified. COMPARISON PLAIN FILM: NONE FINDINGS: No bowel dilatation. There is a large amount of colonic stool. Cholecystectomy clips are noted. The osseous structures are grossly intact. IMPRESSION: No bowel dilatation. A large amount of colonic stool is noted. -------- FINAL REPORT -------- Dictated By: Andrey Perkins Dictated Date: 11/15/2022 00:06 Assigned Physician: Andrey Perkins Reviewed and Electronically Signed By: Andrey Perkins Signed Date: 11/15/2022 00:09 Workstation ID: [id number] Transcribed By: Self Edit Transcribed Date: 11/15/2022 00:06 -------- FINAL REPORT -------- Dictated By: Andrey Perkins Dictated Date: 11/15/2022 00:06 Assigned Physician: Andrey Perkins Reviewed and Electronically Signed By: Andrey Perkins Signed Date: 11/15/2022 00:09 Workstation ID: [id number] Transcribed By: Self Edit Transcribed Date: 11/15/2022 00:06 [facility] No bowel dilatation. A large amount of colonic stool is noted. -------- FINAL REPORT -------- Dictated By: Andrey Perkins Dictated Date: 11/15/2022 00:06 Assigned Physician: Andrey Perkins Reviewed and Electronically Signed By: Andrey Perkins Signed Date: 11/15/2022 00:09 Workstation ID: [id number] Transcribed By: Self Edit Transcribed Date: 11/15/2022 00:06 [facility] EXAMINATION TYPE: XR ABDOMEN 1 VIEW DATE OF EXAM: 11/14/2022 11:20 PM HISTORY: Abd pain, unspecified. COMPARISON PLAIN FILM: NONE FINDINGS: No bowel dilatation. There is a large amount of colonic stool. Cholecystectomy clips are noted. The osseous structures are grossly intact. POWERSCRIBE Andrey Perkins M D - 11/15/2022 EXAMINATION TYPE: XR ABDOMEN 1 VIEW DATE OF EXAM: 11/14/2022 11:20 PM HISTORY: Abd pain, unspecified. COMPARISON PLAIN FILM: NONE FINDINGS: No bowel dilatation. There is a large amount of colonic stool. Cholecystectomy clips are noted. The osseous structures are grossly intact. IMPRESSION: No bowel dilatation. A large amount of colonic stool is noted. -------- FINAL REPORT -------- Dictated By: Andrey Perkins Dictated Date: 11/15/2022 00:06 Assigned Physician: Andrey Perkins Reviewed and Electronically Signed By: Andrey Perkins Signed Date: 11/15/2022 00:09 Workstation ID: [id number] Transcribed By: Self Edit Transcribed Date: 11/15/2022 00:06 [employer] XR Abdomen Single viewOrdere d By: Andrey Perkins on 11-15-2022 [employer] Work Phone: XR Abdomen Single viewon Radiology Study observation (narrative) [employer] Immunoglobulin light chains. kappa.free/Immunoglobulin light chains.lambda (S) [Mass ratio]on 11-13-2022 Immunoglobulin light chains.kappa.free Nephelometry (S) [Mass/Vol] 20.87 mg/dL High 0.33 - 1.94 mg/dL [employer] Immunoglobulin light chains.kappa.free/Immuno globulin light chains.lambda.free Nephelometry (S) [Mass ratio] 24.27 High 0.26 - 1.65 [employer] [employer] Comment on above: Test performed at [facility], [address] [place] [id number] Alba Bee MD, PhD - Compression Molding Machine Operator Immunoglobulin light chains.lambda.free Nephelometry (S) [Mass/Vol] 0.86 mg/dL 0.57 - 2.63 mg/dL [employer] Interpretation and review of laboratory results Abnormal Kristin [employer] CT Thoracic Spine wo Contras ton 11-12-2022 Postoperative change s of the thoracic spine. 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 COMPARISON: CT chest from 11/10/2022 and MRI of thoracic spine from 11/10/2019 FINDINGS: There are 12 rib-bearing thoracic vertebra. The osseous metastases at T2, T3 and T7 are redemonstrated. There has been interval posterior fusion of T1-T4. There is postoperative gas in the paraspinal soft tissues of the operative bed. A surgical drain lies within the operative bed as well. There are midline dorsal cutaneous deborah. Bones have a demineralized, mottled appearance which may be combination of osteoporosis and diffuse lytic metastases. There are no new fractures. Medial LEFT scapular lytic osseous metastasis is redemonstrated. There are small bilateral pleural effusions. 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 COMPARISON: CT chest from 11/10/2022 and MRI of thoracic spine from 11/10/2019 FINDINGS: There are 12 rib-bearing thoracic vertebra. The osseous metastases at T2, T3 and T7 are redemonstrated. There has been interval posterior fusion of T1-T4. There is postoperative gas in the paraspinal soft tissues of the operative bed. A surgical drain lies within the operative bed as well. There are midline dorsal cutaneous deborah. Bones have a demineralized, mottled appearance which may be combination of osteoporosis and diffuse lytic metastases. There are no new fractures. Medial LEFT scapular lytic osseous metastasis is redemonstrated. There are small bilateral pleural effusions. IMPRESSION: Postoperative changes of the thoracic spine. -------- FINAL REPORT -------- Dictated By: Marlo Ness Dictated Date: 11/12/2022 00:30 Assigned Physician: Marlo Ness Reviewed and Electronically Signed By: Marlo Ness Signed Date: 11/12/2022 00:38 Workstation ID: [id number] Transcribed By: Self Edit Transcribed Date: 11/12/2022 00:30 [facility] CT Thoracic Spine wo Contras tOrdered By: Marlo Ness on 11-12-2022 [facility] [employer] Work Phone: Immunoglobulin light chains. kappa.free/Immunoglobulin light chains.lambda (S) [Mass ratio]on 11-12-2022 [facility] Free Light Chain 20.87 mg/dL High 0.33-1.94 [facility] Comment on above: Performed By: #### 4 0844-3 ####[id number] [place] [address] [facility]erview/Lambda FLC Ratio 24.27 High 0.26-1.65 [facility] Comment on above: Result Comment: Test performed at [facility] [employer] [facility], [address] [facility] [place] [address] Alba Bee MD, PhD - Compression Molding Machine Operator Performed By: #### 4 0844-3 ####[id number] [place] [address] Lambda Free Light Chain 0.86 mg/dL Normal 0.57-2.63 [facility] Comment on above: Performed By: #### 4 0844-3 ####[id number] [place] [address] Immunoglobulin light chains.kappa.free Nephelometry (S) [Mass/Vol] 137.41 mg/dL High 0.33 - 1.94 mg/dL [facility] Immunoglobulin light chains.kappa.free/Immuno globulin light chains.lambda.free Nephelometry (S) [Mass ratio] 114.51 High 0.26 - 1.65 [facility] Comment on above: Test performed at [facility], [address] [place] [address] Alba Bee MD, PhD - Compression Molding Machine Operator Immunoglobulin light chains.lambda.free Nephelometry (S) [Mass/Vol] 1.2 mg/dL 0.57 - 2.63 mg/dL [facility] Interpretation and review of laboratory results Abnormal [facility] [employer] Protein Fractions Immunofixa tion (U) [Interp]on 11-12-2022 Interpretation and review of laboratory results Abnormal [facility] Interpretation Immunofixation (U) [Interp] Free Centerview monoclonal (Bence Avendaño) protein is present. Alebrto Claros M.D. 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 COMPARISON: CT chest from 11/10/2022 and MRI of thoracic spine from 11/10/2019 FINDINGS: There are 12 rib-bearing thoracic vertebra. The osseous metastases at T2, T3 and T7 are redemonstrated. There has been interval posterior fusion of T1-T4. There is postoperative gas in the paraspinal soft tissues of the operative bed. A surgical drain lies within the operative bed as well. There are midline dorsal cutaneous deborah. Bones have a demineralized, mottled appearance which may be combination of osteoporosis and diffuse lytic metastases. There are no new fractures. Medial LEFT scapular lytic osseous metastasis is redemonstrated. There are small bilateral pleural effusions. IMPRESSION: Postoperative changes of the thoracic spine. -------- FINAL REPORT -------- Dictated By: Marlo Ness Dictated Date: 11/12/2022 00:30 Assigned Physician: Marlo Ness Reviewed and Electronically Signed By: Marlo Ness Signed Date: 11/12/2022 00:38 Workstation ID: [id number] Transcribed By: Self Edit Transcribed Date: 11/12/2022 00:30 Normal [facility] CT Thoracic Spine wo Contras ton 11-11-2022 Radiology Study observation (narrative) [facility] Comprehensive metabolic 2000 panelon 11-11-2022 Albumin [Mass/Vol] 3.7 g/dL Normal 3.5-4.8 [facility] Comment on above: Performed By: #### 2 4323-8 ####[facility] [address] [Catalytic activity/Vol] 51 U/L Normal 32-91 [facility] Comment on above: Performed By: #### 2 4323-8 ####[address] [address] ALT [Catalytic activity/Vol] 18 U/L Normal 7-52 [facility] Comment on above: Performed By: #### 2 4323-8 ####[address] [address] Anion gap [Moles/Vol] 9 mmol/L Normal 6-18 [facility] Comment on above: Performed By: #### 2 432-8 ####[address] [address] AST [Catalytic activity/Vol] 25 U/L Normal 15-41 [facility] Comment on above: Performed By: #### 2 432-8 ####[address] [address] Bilirubin [Mass/Vol] 0.6 mg/dL Normal 0.3-1.2 Moun [facility] Comment on above: Performed By: #### 2 4323-8 ####[address] [address] Calcium [Mass/Vol] 9.7 mg/dL Normal 8.9-10.3 [facility] Comment on above: Performed By: #### 2 4323-8 ####[address] [address] Chloride [Moles/Vol] 104 mmol/L Normal 98-107 Moun [facility] Comment on above: Performed By: #### 2 4323-8 ####[place] [address] [address] CO2 [Moles/Vol] 24 mmol/L Normal 22-32 [facility] Comment on above: Performed By: #### 2 4323-8 ####[address] [address] Creatinine [Mass/Vol] 1.18 mg/dL Normal 0.60-1.30 [facility] Comment on above: Performed By: #### 2 432-8 ####[address] [address] GFR/1.73 sq M.predicted among non-blacks MDRD (S/P/Bld) [Vol rate/Area] 68 mL/min/{1.73_m2} Normal >=60 [facility] Comment on above: Result Comment: Effe ctive July 05, 2022, calculation based on the?Chronic Kidney Disease Epidemiology Collaboration (CKD-EPI) equation refit?without adjustment for race. Performed By: #### 2 4323-8 ####[address] [address] Glucose [Mass/Vol] 149 mg/dL High 70-99 [facility] Comment on above: Performed By: #### 2 432-8 ####[address] [address] Potassium [Moles/Vol] 4.0 mmol/L Normal 3.6-5.1 [facility] Comment on above: Performed By: #### 2 4323-8 ####[address] [address] Protein [Mass/Vol] 6.8 g/dL Normal 6.1-7.9 [facility] Comment on above: Performed By: #### 2 4323-8 ####[facility] [id number] [place] [address] Sodium [Moles/Vol] 137 mmol/L Normal 136-145 [facility] Comment on above: Performed By: #### 2 4323-8 ####[facility] [id number] [place] [address] Urea nitrogen [Mass/Vol] 29 mg/dL High 8-20 [facility] Comment on above: Performed By: #### 2 4323-8 ####[facility] [id number] [place] [address] Urea nitrogen/Creatinine [Mass ratio] 24.6 mg/mg High 12.0-20.0 [facility] Comment on above: Performed By: #### 2 4323-8 ####[facility] [id number] [place] [address] Albumin [Mass/Vol] 3.7 g/dL 3.5 - 4.8 g/dL [facility] [employer] ALP [Catalytic activity/Vol] 51 U/L [facility] ALT [Catalytic activity/Vol] 18 U/L [facility] Anion gap [Moles/Vol] 9 mmol/L 6 - 18 [facility] AST [Catalytic activity/Vol] 25 U/L [facility] Bilirubin [Mass/Vol] 0.6 mg/dL 0.3 - 1 .2 mg/dL [facility] Calcium [Mass/Vol] 9.7 mg/dL 8.9 - 10. 3 mg/dL [facility] [employer] Chloride [Moles/Vol] 104 mmol/L 98 - 10 7 mmol/L [facility] [employer] CO2 [Moles/Vol] 24 mmol/L 22 - 32 mmol/L [facility] [employer] Creatinine [Mass/Vol] 1.18 mg/dL 0.60 - 1.30 mg/dL [facility] [employer] GFR/1.73 sq M.predicted among non-blacks MDRD (S/P/Bld) [Vol rate/Area] 68 mL/min/{1.73_m2} - PINF [facility] [employer] Comment on above: Effective July 05, 2022, calculation based on the Chronic Kidney Disease Epidemiology Collaboration (CKD-EPI) equation refit without adjustment for race. Glucose [Mass/Vol] 149 mg/dL High 70 - 99 mg/dL [facility] Interpretation and review of laboratory results Abnormal [place] [employer] Potassium [Moles/Vol] 4.0 mmol/L 3.6 - 5.1 mmol/L [facility] [employer] Protein [Mass/Vol] 6.8 g/dL 6.1 - 7.9 g/dL [facility] [employer] Sodium [Moles/Vol] 137 mmol/L 136 - 145 mmol/L [facility] Urea nitrogen [Mass/Vol] 29 mg/dL High 8 - 20 mg/dL [facility] Urea nitrogen/Creatinine [Mass ratio] 24.6 mg/mg High 12.0 - 20.0 [facility] Glucose Auto test strip (Bld ) [Mass/Vol]on 11-11-2022 Glucose [Mass/Vol] 151 mg/dL High 70-99 [facility] Comment on above: Performed By: #### 2 340-8 #### [facility] [address] [place] [address] Glucose [Mass/Vol] 151 mg/dL High 70 - 99 mg/dL [facility] Interpretation and review of laboratory results Abnormal [facility] Hemogram and platelets WO di fferential panel (Bld)on 11-11-2022 Basophils (Bld) [#/Vol] 0.00 10*3/uL Normal 0.00-0.20 [facility] Comment on above: Performed By: #### 2 4317-0 ####[facility] [address] [place] [address] Basophils/100 WBC (Bld) 0.0 % Normal 0.0-2.0 [facility] Comment on above: Performed By: #### 2 4317-0 ####[facility] [address] [place] [address] Eosinophils (Bld) [#/Vol] 0.01 10*3/uL Normal 0.00-0.70 [facility] Comment on above: Performed By: #### 2 4317-0 ####[address] [address] Eosinophils/100 WBC (Bld) 0.1 % Normal 0.0-7.0 [facility] Comment on above: Performed By: #### 2 4317-0 ####[address] [address] Erythrocyte distribution width (RBC) [Ratio] 13.7 % Normal 11.0-14.8 [facility] Comment on above: Performed By: #### 2 4317-0 ####[address] [address] Hematocrit (Bld) [Volume fraction] 34.5 % Low 39.0-49.0 [facility] Comment on above: Performed By: #### 2 4317-0 ####[address] [address] Hemoglobin (Bld) [Mass/Vol] 11.5 g/dL Low 13.5-17.5 [facility] Comment on above: Performed By: #### 2 4317-0 ####[address] [address] Immature granulocytes (Bld) [#/Vol] 0.04 10*3/uL Normal [facility] Comment on above: Performed By: #### 2 4317-0 ####[address] [address] Immature granulocytes/100 WBC (Bld) 0.6 % Normal 0.0-1.2 [facility] Comment on above: Performed By: #### 2 4317-0 ####[address] [address] Lymphocytes (Bld) [#/Vol] 0.58 10*3/uL Low 1.00-4.80 [facility] Comment on above: Performed By: #### 2 4317-0 ####[address] [address] Lymphocytes/100 WBC (Bld) 8.5 % Low 17.9-49.6 [facility] Comment on above: Performed By: #### 2 4317-0 ####[address] [address] MCH 30.9 pcg Normal 27.0-34.0 [facility] Comment on above: Performed By: #### 2 4317-0 ####[address] [address] MCHC (RBC) [Mass/Vol] 33.3 g/dL Normal 30.8-35.3 [facility] Comment on above: Performed By: #### 2 4317-0 ####[address] [address] MCV (RBC) [Entitic vol] 92.7 fL Normal 80.0-97.0 [facility] Comment on above: Performed By: #### 2 4317-0 ####[address] [address] Monocytes (Bld) [#/Vol] 0.05 10*3/uL Normal 0.00-0.90 [facility] Comment on above: Performed By: #### 2 4317-0 ####[address] [address] Monocytes/100 WBC (Bld) 0.7 % Normal 0.0-12.0 [facility] Comment on above: Performed By: #### 2 4317-0 ####[address] [address] Neutrophils Absolute 6.17 K/mcL Normal 1.80-7.70 Moun [facility] Comment on above: Performed By: #### 2 4317-0 ####[address] [address] Neutrophils/100 WBC (Bld) 90.1 % High 38.1-75.5 [facility] Comment on above: Performed By: #### 2 4317-0 ####[address] [address] Platelet mean volume (Bld) [Entitic vol] 10.4 fL Normal 6.2-12.1 [facility] Comment on above: Performed By: #### 2 4317-0 ####[address] [address] Platelets (Bld) [#/Vol] 197 10*3/uL Normal 142-424 [facility] Comment on above: Performed By: #### 2 4317-0 ####[address] [address] RBC (Bld) [#/Vol] 3.72 10*6/uL Low 4.30-5.70 [facility] Comment on above: Performed By: #### 2 4317-0 ####[address] [address] WBC (Bld) [#/Vol] 6.9 10*3/uL Normal 4.6-10.2 [facility] Comment on above: Performed By: #### 2 4317-0 ####[facility] [address] [place] [address] Basophils (Bld) [#/Vol] 0.00 10*3/uL [facility] Basophils/100 WBC (Bld) 0.0 % 0.0 - 2.0 % [facility] Eosinophils (Bld) [#/Vol] 0.01 10*3/uL [facility] Eosinophils/100 WBC (Bld) 0.1 % 0.0 - 7.0 % [facility] Erythrocyte distribution width (RBC) [Ratio] 13.7 % 11.0 - 14.8 % [facility] Hematocrit (Bld) [Volume fraction] 34.5 % Low 39.0 - 49.0 % [facility] Hemoglobin (Bld) [Mass/Vol] 11.5 g/dL Low 13.5 - 17.5 g/dL [facility] Immature granulocytes (Bld) [#/Vol] 0.04 10*3/uL K/mcL [facility] Immature granulocytes/100 WBC (Bld) 0.6 % 0.0 - 1.2 % [facility] Interpretation and review of laboratory results Abnormal [facility] Lymphocytes (Bld) [#/Vol] 0.58 10*3/uL Low [facility] Lymphocytes/100 WBC (Bld) 8.5 % Low 17.9 - 49.6 % [facility] MCH (RBC) [Entitic mass] 30.9 pg [facility] MCHC (RBC) [Mass/Vol] 33.3 g/dL 30.8 - 35.3 g/dL [facility] MCV (RBC) [Entitic vol] 92.7 fL [facility] Monocytes (Bld) [#/Vol] 0.05 10*3/uL [facility] Monocytes/100 WBC (Bld) 0.7 % 0.0 - 12.0 % [facility] Neutrophils (Bld) [#/Vol] 6.17 10*3/uL [facility] Neutrophils/100 WBC (Bld) 90.1 % High 38.1 - 75.5 % [facility] Platelet mean volume (Bld) [Entitic vol] 10.4 fL [facility] Platelets (Bld) [#/Vol] 197 10*3/uL [employer] RBC (Bld) [#/Vol] 3.72 10*6/uL Low [facility] WBC (Bld) [#/Vol] 6.9 10*3/uL [facility] [employer] electrophores is serumOrdered By: Alberto Claros on 11-11-2022 Interpretation Immunofixation [Interp] 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 The monoclonal protein band is relatively light and less pronounced than the usual M-spike; therefore, the finding of a monoclonal gammopathy remains in doubt. A urine ELINA now and a repetition of the serum ELINA after an interval of time is recommended if clinically indicated. Alberto Claros M.D. [employer] Work Phone: Interpretation Immunofixatio n [Interp]Ordered By: Albreto Claros on 11-11-2022 [email or web address] Phone: Pathology studyon 11-11-2022 Pathology study Spinal Epidural mass ; - Centerview restricted, plasma cell neoplasm. - See note. Note; Biopsy consists of fragments of tissue predominantly consisting of plasma cells with atypical features. Immunoperoxidase stains performed with adequate controls show plasma cell reactivity with CD138 with predominantly kappa GURINDER staining. No significant lambda GURINDER positive plasma cells are present. Neoplastic cells are negative for CD20, CD3, cytokeratin AE1/AE3, Cytokeratin CAM 5.2, Melan-A, HMB45, synaptophysin and chromogranin. 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 Differential diagnosis include multiple myeloma. A correlation with clinical findings is suggested. Case seen by a second pathologist in our group, who concurs. Final Diagnosis was reviewed during intradepartmental consult. A. Spine, Thoracic, SPINAL EPIDURAL TUMOR - PERM: Received in formalin labeled with the patient's name and spinal epidural tumor is a 2 x 1.5 x 0.5 cm aggregate of multiple fragments of red-brown ragged soft tissue. The specimen is submitted entirely in blocks A1 and A2. (AB) Any immunohistochemistry or special stain used in the interpretation of this case was performed at [facility]. These tests have not been cleared or approved by the U.S. Food and Drug Administration. The FDA has determined that such clearance or approval is not necessary. These tests are used for clinical purposes and should not be regarded as investigational or for research. This laboratory is certified to perform high complexity testing under the Clinical Laboratory Improvement Amendments of 1998. All controls show appropriate reactivity. The technical component was performed at [facility], [address] [place] [address]. Microscopic examination was performed. Normal [facility] Comment on above: Performed By: #### 1 1526-1 ####[facility] [id number] [place], [place] [address] [id number] [place] [address] Platelet function (closure t saul) Johnny (Bld) [Interp]on 11-11-2022 Epinephrine Aggregation 97 sec Normal 69-173 [facility] Comment on above: Order Comment: A quita telet count of less than 150,000 or a hematocrit of less than 35% canbe associated with abnormal results even with normal functioning platelets.Normal results with a low platelet count or hematocrit do however, suggestnormal functioning platelets. Result Comment: Resu lts consistent with normal Platelet function. Performed By: #### 4 9836-0 ####[facility] [id number] [place] [address] Platelet function (closure t saul) Johnny (Bld) [Interp]Ordered By: Tonia Bell on 11-11-2022 Interpretation and review of laboratory results Normal [employer] Platelet aggregation EPINEPHrine induced Ql (PRP) 97 [employer] Comment on above: Results consistent w ith normal Platelet function. A platelet count of less than 150,000 or a hematocrit of less than 35% can be associated with abnormal results even with normal functioning platelets. Normal results with a low platelet count or hematocrit do however, suggest normal functioning platelets. [employer] Protein Fractions Elph [Inte rp]on 11-11-2022 Albumin [Mass/Vol] 4.3 g/dL 3.5 - 5.0 g/dL [employer] Albumin in CSF/Albumin in Serum or Plasma (S/P+CSF) [Relative ratio] 61 % [employer] Alpha 2 globulin (U) [Mass/Vol] 0.9 g/dL 0.5 - 0.9 g/dL [employer] Beta globulin+Gamma globulin Elph [Mass/Vol] 0.9 g/dL 0.6 - 1.3 g/dL [employer] Beta lactoglobulin IgG (S) [Mass/Vol] 0.7 g/dL 0.5 - 1.0 g/dL [facility] [employer] CD18 cells actual/normal (Bld) [Rel units/Vol] 10 % [employer] CD3+TCR alpha beta+ cells/100 cells (Bld) 4 % [employer] Gamma butyrobetaine/Trimethyll ysine (DBS) [Molar ratio] 13 % [employer] Interpretation and review of laboratory results Abnormal [employer] Lactalbumin alpha IgG (S) [Mass/Vol] 0.3 g/dL High 0.1 - 0.2 g/dL [employer] Protein [Mass/Vol] 7.1 g/dL 6.1 - 7.9 g/dL [employer] Protein Fractions [Interp] Possible monoclonal gammopathy or pseudo-monoclonal gammopathy. An atypical electrophoretic band is identified which may represent a true M-spike as seen in multiple myeloma, other lymphoproliferative diseases, or benign monoclonal gammopathy. It could also be a [id number] mimicking a monoclonal band. Recommend urine immunofixation now and a repeat serum immunofixation after an interval of time to further evaluate this patient. Alberto Claros M.D. [employer] t(11;22)(p13;q12.2)(WT1, EWSR1) cells/Cells.total Molgen (Bld/Tiss) 13 % [employer] Protein Fractions Immunofixa tion (U) [Interp]on 11-11-2022 Immunofixation Electrophoresis, Urine Normal [facility] Comment on above: Result Comment: Free Centerview monoclonal (Bence Avendaño) protein is present. Alberto Claros M.D. Performed By: #### 1 4896-5 ####[facility] ([facility]) [id number] [facility] [place] [address] Protein (U) [Mass/Vol] 116 mg/dL High <=10 Mo [facility] Comment on above: Performed By: #### 1 4896-5 ####[facility] ([facility]) [id number] [facility] [place] [id number] XR FLUORO UP TO 1 HOUR (STAT ISTICS)(NO REPORT)on 11-11-2022 XR FLUORO UP TO 1 HOUR (STATISTICS)(NO REPORT) This order has been auto-finalized and does not contain a result. Normal [facility] XR Fluoro Up To 1 Hour (Stat istics)(No Report)on 11-11-2022 This order has been auto-finalized and does not contain a result. 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 Thoracic decompression and removal of epidural tumor at T2 and T7 with laminectomy, facetectomy and foraminotomy. COMPARISON: CT scan of the chest dated 11/10/2022. FINDINGS: Fluoroscopy including O ring spin images was provided to the ordering clinician to perform surgery. Fluoroscopic time: 2.93 seconds Fluoroscopic dose: 15.86 mGy Matrix images reveal a clamp along the posterior spinous process of T3. Matrix images reveal bone destruction of the posterior margin of the T2 and T3 vertebral bodies, left facet and posterior elements of C2. There is osteopenia of the upper ribs. Pathologic fracture of T7 with extension of lucent lesion into the left pedicle is again identified. IMPRESSION: 1. Patient is undergoing thoracic spine surgery. 2. Pathologic compression fractures as described above similar to prior. 3. Please see beating machine operator report. -------- FINAL REPORT -------- Dictated By: Brendan Painting Dictated Date: 11/11/2022 18:54 Assigned Physician: Brendan Painting Reviewed and Electronically Signed By: Brendan Painting Signed Date: 11/11/2022 19:04 Workstation ID: [id number] Transcribed By: Self Edit Transcribed Date: 11/11/2022 18:54 Normal [facility] XR Thoracic Spine Complete 4 + Viewson 11-11-2022 1. Patient is undergoing thoracic spine surgery. 2. Pathologic compression fractures as described above similar to prior. 3. Please see beating machine operator report. -------- FINAL REPORT -------- Dictated By: Brendan Painting Dictated Date: 11/11/2022 18:54 Assigned Physician: Brendan Painting Reviewed and Electronically Signed By: Brendan Painting Signed Date: 11/11/2022 19:04 Workstation ID: [id number] Transcribed By: Self Edit Transcribed Date: 11/11/2022 18:54 POWERSCRIBE EXAMINATION TYPE: XR THORACIC SPINE COMPLETE 4+ VIEWS DATE OF EXAM : 11/11/2022 4:04 PM HISTORY: Pathologic T2 and T7 compression fractures with severe spinal cord compression. Thoracic decompression and removal of epidural tumor at T2 and T7 with laminectomy, facetectomy and foraminotomy. COMPARISON: CT scan of the chest dated 11/10/2022. FINDINGS: Fluoroscopy including O ring spin images was provided to the ordering clinician to perform surgery. Fluoroscopic time: 2.93 seconds Fluoroscopic dose: 15.86 mGy Matrix images reveal a clamp along the posterior spinous process of T3. Matrix images reveal bone destruction of the posterior margin of the T2 and T3 vertebral bodies, left facet and posterior elements of C2. There is osteopenia of the upper ribs. Pathologic fracture of T7 with extension of lucent lesion into the left pedicle is again identified. POWERSCRIBE Brendan Painting MD - 11/11/2022 EXAMINATION TYPE: XR THORACIC SPINE COMPLETE 4+ VIEWS DATE OF EXAM : 11/11/2022 4:04 PM HISTORY: Pathologic T2 and T7 compression fractures with severe spinal cord compression. Thoracic decompression and removal of epidural tumor at T2 and T7 with laminectomy, facetectomy and foraminotomy. COMPARISON: CT scan of the chest dated 11/10/2022. FINDINGS: Fluoroscopy including O ring spin images was provided to the ordering clinician to perform surgery. Fluoroscopic time: 2.93 seconds Fluoroscopic dose: 15.86 mGy Matrix images reveal a clamp along the posterior spinous process of T3. Matrix images reveal bone destruction of the posterior margin of the T2 and T3 vertebral bodies, left facet and posterior elements of C2. There is osteopenia of the upper ribs. Pathologic fracture of T7 with extension of lucent lesion into the left pedicle is again identified. IMPRESSION: 1. Patient is undergoing thoracic spine surgery. 2. Pathologic compression fractures as described above similar to prior. 3. Please see beating machine operator report. -------- FINAL REPORT -------- Dictated By: Brendan Painting Dictated Date: 11/11/2022 18:54 Assigned Physician: Brendan Painting Reviewed and Electronically Signed By: Brendan Painting Signed Date: 11/11/2022 19:04 Workstation ID: [id number] Transcribed By: Self Edit Transcribed Date: 11/11/2022 18:54 [employer] Radiology Study observation (narrative) [employer] XR Thoracic Spine Complete 4 + ViewsOrdered By: Brendan Painting on 11-11-2022 [employer] Work Phone: Basic metabolic 2000 panelon 11-10-2022 CK [Catalytic activity/Vol] 484 U/L High 21-232 [facility] Comment on above: Performed By: #### 2 4321-2 #### [facility] [address] [place] [address] Anion gap [Moles/Vol] 17 mmol/L 6 - 18 [employer] Calcium [Mass/Vol] 10.9 mg/dL High 8.9 - 10. 3 mg/dL [employer] Chloride [Moles/Vol] 98 mmol/L 98 - 10 7 mmol/L [employer] CO2 [Moles/Vol] 21 mmol/L Low 22 - 32 mmol/L [employer] Creatinine [Mass/Vol] 1.54 mg/dL High 0.60 - 1.30 mg/dL [employer] GFR/1.73 sq M.predicted among non-blacks MDRD (S/P/Bld) [Vol rate/Area] 50 mL/min/{1.73_m2} Low - PINF [employer] Comment on above: Effective July 05, 2022, calculation based on the Chronic Kidney Disease Epidemiology Collaboration (CKD-EPI) equation refit without adjustment for race. Glucose [Mass/Vol] 105 mg/dL High 70 - 99 mg/dL [employer] Interpretation and review of laboratory results Abnormal [facility] Potassium [Moles/Vol] 3.9 mmol/L 3.6 - 5.1 mmol/L [facility] Sodium [Moles/Vol] 136 mmol/L 136 - 145 mmol/L [facility] Urea nitrogen [Mass/Vol] 36 mg/dL High 8 - 20 mg/dL [facility] Urea nitrogen/Creatinine [Mass ratio] 23.4 mg/mg High 12.0 - 20.0 [facility] Blood type and Indirect anti body screen panel (Bld)on 11-10-2022 ABO group Nom (Bld) AB Normal [facility] Comment on above: Performed By: #### 3 4532-2 ####[facility] [id number] [place] [id number] Rh Type Positive Normal [facility] Comment on above: Performed By: #### 3 4532-2 ####[facility] [id number] [place] [id number] ABO group Nom (Bld) AB [facility] Blood group antibody screen Ql Negative [facility] Rh Nom (Bld) Positive [facility] C-reactive proteinon 023 CRP [Mass/Vol] 13.2 mg/dL High 0.0 - 1.0 mg/dL [facility] CBC W Ordered Manual Differe ntial panel (Bld)on 11-10-2022 Sed Rate 85 mm/hr High 0-15 [facility] Comment on above: Performed By: #### 5 7782-5 ####[facility] [id number] [place] [address] Band form neutrophils/100 WBC (Bld) 1.0 % [facility] Bite cells LM Ql (Bld) Present Abnormal (none) Tr [facility] Cells Counted Total (Bld) [#] 100 {cells} [facility] Echinocyte/Kemmerer Cells Present Present Abnormal (none) [facility] Interpretation and review of laboratory results Abnormal [facility] Lymphocytes (Bld) [#/Vol] 1.01 10*3/uL [facility] Lymphocytes/100 WBC (Bld) 10.3 % Low 17.9 - 49.6 % [employer] Monocytes (Bld) [#/Vol] 0.71 10*3/uL [employer] Monocytes/100 WBC (Bld) 7.2 % 0.0 - 12.0 % [employer] Polychromasia Present 1+ Abnormal (none) Tri [facility] [employer] Segmented neutrophils (Bld) [#/Vol] 8.09 10*3/uL High [employer] Segmented neutrophils/100 WBC (Bld) 81.5 % High 38.1 - 75.5 % [employer] CK [Catalytic activity/Vol]o n 11-10-2022 Interpretation and review of laboratory results Abnormal [employer] CRP [Mass/Vol]on 11-10-2022 C-Reactive Protein 13.2 mg/dL High 0.0-1.0 [facility] Comment on above: Performed By: #### 1 988-5 ####[facility] [id number] [place] [address] Interpretation and review of laboratory results Abnormal [employer] CT ABDOMEN PELVIS W CONTRAST on 11-10-2022 CT ABDOMEN PELVIS W CONTRAST EXAMINATION TYPE: CT ABDOMEN PELVIS W CONTRAST, CT CHEST W CONTRAST DATE OF EXAM : 11/10/2022 3:34 PM HISTORY: Back pain, weakness, metastases COMPARISON: Multiple, most recent dated 11/10/2022 FINDINGS: Chest: Mild bilateral dependent atelectasis. Minimal right pleural fluid. No pneumothorax. Trachea and central airways are patent. Heart is top normal in size. No pericardial effusion. No acute vascular findings. Mildly enlarged subcarinal lymph node. Multiple mildly prominent hilar and mediastinal lymph nodes. Unremarkable esophagus and thyroid gland. Multiple lytic osseous lesions. Compression deformities involving T2 and T7 vertebral bodies again shown with central canal involvement. Abdomen and pelvis: No hepatic mass identified. No biliary ductal dilatation postcholecystectomy. Adrenal glands, spleen, and pancreas are unremarkable. No hydronephrosis or ureteral dilatation. Small calcifications in the renal amado, possibly stones. Left renal cyst. Vanegas catheter in the bladder lumen with trace gas. Prostate gland is top normal in size. Seminal vesicles are unremarkable. No bowel obstruction. No evidence of appendicitis. Moderate to large right colonic fecal material. Calcific atherosclerosis. No acute vascular findings. No pathologically enlarged lymph nodes identified. Lytic osseous lesions are noted, for example in the sacrum and L3 spinous process on image 38 of series 13. IMPRESSION: Chest: 1. Mild mediastinal and hilar lymphadenopathy. 2. Osseous lesions again shown with compression deformities and central canal involvement. 3. Minimal right pleural fluid with mild bilateral atelectasis. Abdomen and pelvis: 1. Osseous lesions again shown. 2. Moderate to large right colonic fecal material. No colonic mass identified. Follow-up colonoscopy can be performed if clinically indicated. -------- FINAL REPORT -------- Dictated By: Gildardo Sotelo Dictated Date: 11/10/2022 16:09 Assigned Physician: Gildardo Sotelo Reviewed and Electronically Signed By: Gildardo Sotelo Signed Date: 11/10/2022 16:26 Workstation ID: [id number] Transcribed By: Self Edit Transcribed Date: 11/10/2022 16:09 Normal [facility] CT CHEST W CONTRASTon 2022 CT CHEST W CONTRAST EXAMINATION TYPE: CT ABDOMEN PELVIS W CONTRAST, CT CHEST W CONTRAST DATE OF EXAM : 11/10/2022 3:34 PM HISTORY: Back pain, weakness, metastases COMPARISON: Multiple, most recent dated 11/10/2022 FINDINGS: Chest: Mild bilateral dependent atelectasis. Minimal right pleural fluid. No pneumothorax. Trachea and central airways are patent. Heart is top normal in size. No pericardial effusion. No acute vascular findings. Mildly enlarged subcarinal lymph node. Multiple mildly prominent hilar and mediastinal lymph nodes. Unremarkable esophagus and thyroid gland. Multiple lytic osseous lesions. Compression deformities involving T2 and T7 vertebral bodies again shown with central canal involvement. Abdomen and pelvis: No hepatic mass identified. No biliary ductal dilatation postcholecystectomy. Adrenal glands, spleen, and pancreas are unremarkable. No hydronephrosis or ureteral dilatation. Small calcifications in the renal amado, possibly stones. Left renal cyst. Vanegas catheter in the bladder lumen with trace gas. Prostate gland is top normal in size. Seminal vesicles are unremarkable. No bowel obstruction. No evidence of appendicitis. Moderate to large right colonic fecal material. Calcific atherosclerosis. No acute vascular findings. No pathologically enlarged lymph nodes identified. Lytic osseous lesions are noted, for example in the sacrum and L3 spinous process on image 38 of series 13. IMPRESSION: Chest: 1. Mild mediastinal and hilar lymphadenopathy. 2. Osseous lesions again shown with compression deformities and central canal involvement. 3. Minimal right pleural fluid with mild bilateral atelectasis. Abdomen and pelvis: 1. Osseous lesions again shown. 2. Moderate to large right colonic fecal material. No colonic mass identified. Follow-up colonoscopy can be performed if clinically indicated. -------- FINAL REPORT -------- Dictated By: Gildardo Sotelo Dictated Date: 11/10/2022 16:09 Assigned Physician: Gildardo Sotelo Reviewed and Electronically Signed By: Gildardo Sotelo Signed Date: 11/10/2022 16:26 Workstation ID: [id number] Transcribed By: Self Edit Transcribed Date: 11/10/2022 16:09 Normal [facility] Creatine kinaseon 11-10-2022 CK [Catalytic activity/Vol] 484 U/L High [facility] Critical Careon 11-10-2022 Rico Bhat MD 11/10/2022 2:20 PM Critical Care Performed by: Rico Bhat MD Authorized by: Rico Bhat MD Critical care provider statement: Critical care time (minutes): 120 Critical care time was exclusive of: Separately billable procedures and treating other patients and teaching time Critical care was necessary to treat or prevent imminent or life-threatening deterioration of the following conditions: 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 (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 Compression) Critical care was time spent personally by me on the following activities: Development of treatment plan with patient or surrogate, evaluation of patient's response to treatment, examination of patient, obtaining history from patient or surrogate, ordering and performing treatments and interventions, ordering and review of laboratory studies, ordering and review of radiographic studies, pulse oximetry, review of old charts and re-evaluation of patient's condition I assumed direction of critical care for this patient from another provider in my specialty: yes [employer] ESR (Bld) [Velocity]on 11-10 Interpretation and review of laboratory results Abnormal [employer] Hemogram and platelets WO di fferential panel (Bld)Ordered By: Surjit Echeverria on 11-10-2022 Erythrocyte distribution width (RBC) [Ratio] 13.4 % 11.0 - 14.8 % [facility] Hematocrit (Bld) [Volume fraction] 36.4 % Low 39.0 - 49.0 % [facility] Hemoglobin (Bld) [Mass/Vol] 12.4 g/dL Low 13.5 - 17.5 g/dL [facility] Interpretation and review of laboratory results Abnormal [facility] MCH (RBC) [Entitic mass] 31.1 pg [facility] MCHC (RBC) [Mass/Vol] 34.1 g/dL 30.8 - 35.3 g/dL [facility] MCV (RBC) [Entitic vol] 91.2 fL T [facility] Platelet mean volume (Bld) [Entitic vol] 10.3 fL [facility] Platelets (Bld) [#/Vol] 198 10*3/uL [facility] RBC (Bld) [#/Vol] 3.99 10*6/uL Low [facility] WBC (Bld) [#/Vol] 9.8 10*3/uL [facility] IgA IEP Ql (S)on 11-10-2022 IgA [Mass/Vol] 180 mg/dL 66 - 436 mg/dL [facility] IgG synthesis rate Calc (S+C SF) [Mass/Time]on 11-10-2022 IgG [Mass/Vol] 1132 mg/dL 791 - 1643 mg/dL [facility] IgA [Mass/Vol] 180 mg/dL Normal 66-436 [facility] Comment on above: Performed By: #### 1 4116-8 ####[facility] ([facility]) [id number] [place] [address] IgM IEP Ql (S)on 11-10-2022 IgM [Mass/Vol] 23 mg/dL Low 43 - 279 mg/dL [facility] Interpretation and review of laboratory results Abnormal [facility] Immunoglobulin light chains. kappa.free/Immunoglobulin light chains.lambda (S) [Mass ratio]on 11-10-2022 [facility] Free Light Chain 137.41 mg/dL High 0.33-1.94 [facility] Comment on above: Performed By: #### 4 0844-3 ####[facility] [id number] [place] [address] [facility]/Lambda FLC Ratio 114.51 High 0.26-1.65 Mo [facility] Comment on above: Result Comment: Test performed at [facility], [address] [place] [address] Alba Bee MD, PhD - Compression Molding Machine Operator Performed By: #### 4 0844-3 ####[facility] [id number] [place] [address] Lambda Free Light Chain 1.20 mg/dL Normal 0.57-2.63 [facility] Comment on above: Performed By: #### 4 0844-3 ####[facility] [id number] [place] [address] Interpretation Immunofixatio n [Interp]on 11-10-2022 Immunofixation Result, Serum Normal [facility] Comment on above: Result Comment: Poss ible monoclonal gammopathy, free kappa light chain type. The monoclonal protein band is relatively light and less pronounced than the usual M-spike; therefore, the finding of a monoclonal gammopathy remains in doubt. A urine ELINA now and a repetition of the serum ELINA after an interval of time is recommended if clinically indicated. Alberto Claros M.D. Performed By: #### 2 5700-6 ####[facility] [id number] [place] [address] Laboratory - Specimen inform [facility] 11-10-2022 Specimen source Nom (Unsp spec) Hold for add-ons. [facility] Comment on above: Auto resulted. MR CERVICAL SPINE WO AND W C [facility] 11-10-2022 MR CERVICAL SPINE WO AND W CONTRAST EXAMINATION TYPE: MR CERVICAL SPINE WO AND W CONTRAST, MR THORACIC SPINE WO AND W CONTRAST, MR LUMBAR SPINE WO AND W CONTRAST DATE OF EXAM : 11/10/2022 11:52 AM HISTORY: Epidural abscess COMPARISON: Thoracic spine radiographs 05/07/2022 FINDINGS: Cervical spine: No large cervical marrow metastatic lesions identified. No cervical cord signal abnormality or abnormal intradural enhancement. No cervical spondylolisthesis. C2-3: No spinal canal or neural foraminal narrowing. C3-4: No spinal canal or neural foraminal narrowing. C4-5: There is mild intervertebral disc height loss. There is a broad-based disc protrusion without spinal canal narrowing. There is mild bilateral neural foraminal narrowing. C5-6: There is moderate intervertebral disc height loss. There is mild spinal canal narrowing due to a broad-based discussed by complex. There is moderate bilateral neural foraminal narrowing right worse than left. C6-7: There is a broad-based disc protrusion without spinal canal narrowing. There is mild right neural foraminal narrowing. C7-T1: No spinal canal or neural foraminal narrowing. Thoracic spine: There is a pathologic vertebral plana deformity of the T2 vertebral body. There is compression of the cord due to anterior and left dorsal epidural tumor. There is a pathologic compression fracture at T7 with moderate loss of vertebral body height and substantial epidural tumor with compression of the cord. There are several other smaller metastatic lesions throughout the thoracic marrow. No abnormal intradural enhancement. There is signal abnormality within the compressed cord at the T2 and T7 levels. There is a left scapular metastatic lesion (series 20 image 4). Lumbar spine: There are metastatic lesions within the L3 spinous process, lower sacral posterior elements, and several smaller metastatic lesions throughout the partially imaged pelvis. The conus terminates at the L1 level. Conus appears normal in signal intensity. There is no abnormal leptomeningeal enhancement. T12-L1: No spinal canal or neural foraminal narrowing. L1-2: No spinal canal or neural foraminal narrowing. L2-3: No spinal canal or neural foraminal narrowing. L3-4: There is facet arthropathy without spinal canal narrowing. There is mild right and moderate left neural foraminal. L4-5: There is moderate intervertebral disc height loss. There is a disc bulge and facet arthropathy without spinal canal narrowing. There is moderate right neural foraminal narrowing. L5-S1: There is facet arthropathy without spinal canal or neural foraminal narrowing. There Urinary bladder is full. 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 DOCUMENT ONLY finding communicated directly to Rich Castillo NP neurosurgery and documented in the [employer] system on 11/10/2022 2:28 PM, Message ID [id number]. -------- FINAL REPORT -------- Dictated By: Armand Barnes Dictated Date: 11/10/2022 14:23 Assigned Physician: Armand Barnes Reviewed and Electronically Signed By: Armand Barnes Signed Date: 11/10/2022 14:52 Workstation ID: [id number] Transcribed By: Self Edit Transcribed Date: 11/10/2022 14:23 Normal [facility] MR Cervical Spine wo and w C [facility] 11-10-2022 Radiology Study observation (narrative) [facility] MR LUMBAR SPINE WO AND W CON TRASTon 11-10-2022 MR LUMBAR SPINE WO AND W CONTRAST EXAMINATION TYPE: MR CERVICAL SPINE WO AND W CONTRAST, MR THORACIC SPINE WO AND W CONTRAST, MR LUMBAR SPINE WO AND W CONTRAST DATE OF EXAM : 11/10/2022 11:52 AM HISTORY: Epidural abscess COMPARISON: Thoracic spine radiographs 05/07/2022 FINDINGS: Cervical spine: No large cervical marrow metastatic lesions identified. No cervical cord signal abnormality or abnormal intradural enhancement. No cervical spondylolisthesis. C2-3: No spinal canal or neural foraminal narrowing. C3-4: No spinal canal or neural foraminal narrowing. C4-5: There is mild intervertebral disc height loss. There is a broad-based disc protrusion without spinal canal narrowing. There is mild bilateral neural foraminal narrowing. C5-6: There is moderate intervertebral disc height loss. There is mild spinal canal narrowing due to a broad-based discussed by complex. There is moderate bilateral neural foraminal narrowing right worse than left. C6-7: There is a broad-based disc protrusion without spinal canal narrowing. There is mild right neural foraminal narrowing. C7-T1: No spinal canal or neural foraminal narrowing. Thoracic spine: There is a pathologic vertebral plana deformity of the T2 vertebral body. There is compression of the cord due to anterior and left dorsal epidural tumor. There is a pathologic compression fracture at T7 with moderate loss of vertebral body height and substantial epidural tumor with compression of the cord. There are several other smaller metastatic lesions throughout the thoracic marrow. No abnormal intradural enhancement. There is signal abnormality within the compressed cord at the T2 and T7 levels. There is a left scapular metastatic lesion (series 20 image 4). Lumbar spine: There are metastatic lesions within the L3 spinous process, lower sacral posterior elements, and several smaller metastatic lesions throughout the partially imaged pelvis. The conus terminates at the L1 level. Conus appears normal in signal intensity. There is no abnormal leptomeningeal enhancement. T12-L1: No spinal canal or neural foraminal narrowing. L1-2: No spinal canal or neural foraminal narrowing. L2-3: No spinal canal or neural foraminal narrowing. L3-4: There is facet arthropathy without spinal canal narrowing. There is mild right and moderate left neural foraminal. L4-5: There is moderate intervertebral disc height loss. There is a disc bulge and facet arthropathy without spinal canal narrowing. There is moderate right neural foraminal narrowing. L5-S1: There is facet arthropathy without spinal canal or neural foraminal narrowing. There Urinary bladder is full. 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 DOCUMENT ONLY finding communicated directly to Rich Castillo NP neurosurgery and documented in the [employer] system on 11/10/2022 2:28 PM, Message ID [id number]. -------- FINAL REPORT -------- Dictated By: Armand Barnes Dictated Date: 11/10/2022 14:23 Assigned Physician: Armand Barnes Reviewed and Electronically Signed By: Armand Barnes Signed Date: 11/10/2022 14:52 Workstation ID: [id number] Transcribed By: Self Edit Transcribed Date: 11/10/2022 14:23 Normal [facility] MR Lumbar Spine wo and w Con [facility] 11-10-2022 Radiology Study observation (narrative) [facility] MR THORACIC SPINE WO AND W C [facility] 11-10-2022 MR THORACIC SPINE WO AND W CONTRAST EXAMINATION TYPE: MR CERVICAL SPINE WO AND W CONTRAST, MR THORACIC SPINE WO AND W CONTRAST, MR LUMBAR SPINE WO AND W CONTRAST DATE OF EXAM : 11/10/2022 11:52 AM HISTORY: Epidural abscess COMPARISON: Thoracic spine radiographs 05/07/2022 FINDINGS: Cervical spine: No large cervical marrow metastatic lesions identified. No cervical cord signal abnormality or abnormal intradural enhancement. No cervical spondylolisthesis. C2-3: No spinal canal or neural foraminal narrowing. C3-4: No spinal canal or neural foraminal narrowing. C4-5: There is mild intervertebral disc height loss. There is a broad-based disc protrusion without spinal canal narrowing. There is mild bilateral neural foraminal narrowing. C5-6: There is moderate intervertebral disc height loss. There is mild spinal canal narrowing due to a broad-based discussed by complex. There is moderate bilateral neural foraminal narrowing right worse than left. C6-7: There is a broad-based disc protrusion without spinal canal narrowing. There is mild right neural foraminal narrowing. C7-T1: No spinal canal or neural foraminal narrowing. Thoracic spine: There is a pathologic vertebral plana deformity of the T2 vertebral body. There is compression of the cord due to anterior and left dorsal epidural tumor. There is a pathologic compression fracture at T7 with moderate loss of vertebral body height and substantial epidural tumor with compression of the cord. There are several other smaller metastatic lesions throughout the thoracic marrow. No abnormal intradural enhancement. There is signal abnormality within the compressed cord at the T2 and T7 levels. There is a left scapular metastatic lesion (series 20 image 4). Lumbar spine: There are metastatic lesions within the L3 spinous process, lower sacral posterior elements, and several smaller metastatic lesions throughout the partially imaged pelvis. The conus terminates at the L1 level. Conus appears normal in signal intensity. There is no abnormal leptomeningeal enhancement. T12-L1: No spinal canal or neural foraminal narrowing. L1-2: No spinal canal or neural foraminal narrowing. L2-3: No spinal canal or neural foraminal narrowing. L3-4: There is facet arthropathy without spinal canal narrowing. There is mild right and moderate left neural foraminal. L4-5: There is moderate intervertebral disc height loss. There is a disc bulge and facet arthropathy without spinal canal narrowing. There is moderate right neural foraminal narrowing. L5-S1: There is facet arthropathy without spinal canal or neural foraminal narrowing. There Urinary bladder is full. 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 DOCUMENT ONLY finding communicated directly to Rich Castillo NP neurosurgery and documented in the [employer] system on 11/10/2022 2:28 PM, Message ID [id number]. -------- FINAL REPORT -------- Dictated By: Armand Barnes Dictated Date: 11/10/2022 14:23 Assigned Physician: Armand Barnes Reviewed and Electronically Signed By: Armand Barnes Signed Date: 11/10/2022 14:52 Workstation ID: [id number] Transcribed By: Self Edit Transcribed Date: 11/10/2022 14:23 Normal [facility] MR Thoracic Spine wo and w C [facility] 11-10-2022 Radiology Study observation (narrative) [facility] Panel Informationon 11-10 Interpretation and review of laboratory results Normal [facility] Chest: 1. Mild mediastinal and hilar lymphadenopathy. 2. Osseous lesions again shown with compression deformities and central canal involvement. 3. Minimal right pleural fluid with mild bilateral atelectasis. Abdomen and pelvis: 1. Osseous lesions again shown. 2. Moderate to large right colonic fecal material. No colonic mass identified. Follow-up colonoscopy can be performed if clinically indicated. -------- FINAL REPORT -------- Dictated By: Gildardo Sotelo Dictated Date: 11/10/2022 16:09 Assigned Physician: Gildardo Sotelo Reviewed and Electronically Signed By: Gildardo Sotelo Signed Date: 11/10/2022 16:26 Workstation ID: [id number] Transcribed By: Self Edit Transcribed Date: 11/10/2022 16:09 [facility] EXAM[facility] TYPE: CT ABDOMEN PELVIS W CONTRAST, CT CHEST W CONTRAST DATE OF EXAM : 11/10/2022 3:34 PM HISTORY: Back pain, weakness, metastases COMPARISON: Multiple, most recent dated 11/10/2022 FINDINGS: Chest: Mild bilateral dependent atelectasis. Minimal right pleural fluid. No pneumothorax. Trachea and central airways are patent. Heart is top normal in size. No pericardial effusion. No acute vascular findings. Mildly enlarged subcarinal lymph node. Multiple mildly prominent hilar and mediastinal lymph nodes. Unremarkable esophagus and thyroid gland. Multiple lytic osseous lesions. Compression deformities involving T2 and T7 vertebral bodies again shown with central canal involvement. Abdomen and pelvis: No hepatic mass identified. No biliary ductal dilatation postcholecystectomy. Adrenal glands, spleen, and pancreas are unremarkable. No hydronephrosis or ureteral dilatation. Small calcifications in the renal amado, possibly stones. Left renal cyst. Vanegas catheter in the bladder lumen with trace gas. Prostate gland is top normal in size. Seminal vesicles are unremarkable. No bowel obstruction. No evidence of appendicitis. Moderate to large right colonic fecal material. Calcific atherosclerosis. No acute vascular findings. No pathologically enlarged lymph nodes identified. Lytic osseous lesions are noted, for example in the sacrum and L3 spinous process on image 38 of series 13. POWERSCRIBE Gildardo Sotelo MD - 11/10/2022 EXAMINATION TYPE: CT ABDOMEN PELVIS W CONTRAST, CT CHEST W CONTRAST DATE OF EXAM : 11/10/2022 3:34 PM HISTORY: Back pain, weakness, metastases COMPARISON: Multiple, most recent dated 11/10/2022 FINDINGS: Chest: Mild bilateral dependent atelectasis. Minimal right pleural fluid. No pneumothorax. Trachea and central airways are patent. Heart is top normal in size. No pericardial effusion. No acute vascular findings. Mildly enlarged subcarinal lymph node. Multiple mildly prominent hilar and mediastinal lymph nodes. Unremarkable esophagus and thyroid gland. Multiple lytic osseous lesions. Compression deformities involving T2 and T7 vertebral bodies again shown with central canal involvement. Abdomen and pelvis: No hepatic mass identified. No biliary ductal dilatation postcholecystectomy. Adrenal glands, spleen, and pancreas are unremarkable. No hydronephrosis or ureteral dilatation. Small calcifications in the renal amado, possibly stones. Left renal cyst. Vanegas catheter in the bladder lumen with trace gas. Prostate gland is top normal in size. Seminal vesicles are unremarkable. No bowel obstruction. No evidence of appendicitis. Moderate to large right colonic fecal material. Calcific atherosclerosis. No acute vascular findings. No pathologically enlarged lymph nodes identified. Lytic osseous lesions are noted, for example in the sacrum and L3 spinous process on image 38 of series 13. IMPRESSION: Chest: 1. Mild mediastinal and hilar lymphadenopathy. 2. Osseous lesions again shown with compression deformities and central canal involvement. 3. Minimal right pleural fluid with mild bilateral atelectasis. Abdomen and pelvis: 1. Osseous lesions again shown. 2. Moderate to large right colonic fecal material. No colonic mass identified. Follow-up colonoscopy can be performed if clinically indicated. 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 DOCUMENT ONLY finding communicated directly to Rich Castillo NP neurosurgery and documented in the [employer] system on 11/10/2022 2:28 PM, Message ID [id number]. -------- FINAL REPORT -------- Dictated By: Armand Barnes Dictated Date: 11/10/2022 14:23 Assigned Physician: Armand Barnes Reviewed and Electronically Signed By: Armand Barnes Signed Date: 11/10/2022 14:52 Workstation ID: [id number] Transcribed By: Self Edit Transcribed Date: 11/10/2022 14:23 [email or web address] EXAMINATION TYPE: MR CERVICAL SPINE WO AND W CONTRAST, MR THORACIC SPINE WO AND W CONTRAST, MR LUMBAR SPINE WO AND W CONTRAST DATE OF EXAM : 11/10/2022 11:52 AM HISTORY: Epidural abscess COMPARISON: Thoracic spine radiographs 05/07/2022 FINDINGS: Cervical spine: No large cervical marrow metastatic lesions identified. No cervical cord signal abnormality or abnormal intradural enhancement. No cervical spondylolisthesis. C2-3: No spinal canal or neural foraminal narrowing. C3-4: No spinal canal or neural foraminal narrowing. C4-5: There is mild intervertebral disc height loss. There is a broad-based disc protrusion without spinal canal narrowing. There is mild bilateral neural foraminal narrowing. C5-6: There is moderate intervertebral disc height loss. There is mild spinal canal narrowing due to a broad-based discussed by complex. There is moderate bilateral neural foraminal narrowing right worse than left. C6-7: There is a broad-based disc protrusion without spinal canal narrowing. There is mild right neural foraminal narrowing. C7-T1: No spinal canal or neural foraminal narrowing. Thoracic spine: There is a pathologic vertebral plana deformity of the T2 vertebral body. There is compression of the cord due to anterior and left dorsal epidural tumor. There is a pathologic compression fracture at T7 with moderate loss of vertebral body height and substantial epidural tumor with compression of the cord. There are several other smaller metastatic lesions throughout the thoracic marrow. No abnormal intradural enhancement. There is signal abnormality within the compressed cord at the T2 and T7 levels. There is a left scapular metastatic lesion (series 20 image 4). Lumbar spine: There are metastatic lesions within the L3 spinous process, lower sacral posterior elements, and several smaller metastatic lesions throughout the partially imaged pelvis. The conus terminates at the L1 level. Conus appears normal in signal intensity. There is no abnormal leptomeningeal enhancement. T12-L1: No spinal canal or neural foraminal narrowing. L1-2: No spinal canal or neural foraminal narrowing. L2-3: No spinal canal or neural foraminal narrowing. L3-4: There is facet arthropathy without spinal canal narrowing. There is mild right and moderate left neural foraminal. L4-5: There is moderate intervertebral disc height loss. There is a disc bulge and facet arthropathy without spinal canal narrowing. There is moderate right neural foraminal narrowing. L5-S1: There is facet arthropathy without spinal canal or neural foraminal narrowing. There Urinary bladder is full. POWERSMARYE Armand Barnes DO - 11/10/2022 EXAMINATION TYPE: MR CERVICAL SPINE WO AND W CONTRAST, MR THORACIC SPINE WO AND W CONTRAST, MR LUMBAR SPINE WO AND W CONTRAST DATE OF EXAM : 11/10/2022 11:52 AM HISTORY: Epidural abscess COMPARISON: Thoracic spine radiographs 05/07/2022 FINDINGS: Cervical spine: No large cervical marrow metastatic lesions identified. No cervical cord signal abnormality or abnormal intradural enhancement. No cervical spondylolisthesis. C2-3: No spinal canal or neural foraminal narrowing. C3-4: No spinal canal or neural foraminal narrowing. C4-5: There is mild intervertebral disc height loss. There is a broad-based disc protrusion without spinal canal narrowing. There is mild bilateral neural foraminal narrowing. C5-6: There is moderate intervertebral disc height loss. There is mild spinal canal narrowing due to a broad-based discussed by complex. There is moderate bilateral neural foraminal narrowing right worse than left. C6-7: There is a broad-based disc protrusion without spinal canal narrowing. There is mild right neural foraminal narrowing. C7-T1: No spinal canal or neural foraminal narrowing. Thoracic spine: There is a pathologic vertebral plana deformity of the T2 vertebral body. There is compression of the cord due to anterior and left dorsal epidural tumor. There is a pathologic compression fracture at T7 with moderate loss of vertebral body height and substantial epidural tumor with compression of the cord. There are several other smaller metastatic lesions throughout the thoracic marrow. No abnormal intradural enhancement. There is signal abnormality within the compressed cord at the T2 and T7 levels. There is a left scapular metastatic lesion (series 20 image 4). Lumbar spine: There are metastatic lesions within the L3 spinous process, lower sacral posterior elements, and several smaller metastatic lesions throughout the partially imaged pelvis. The conus terminates at the L1 level. Conus appears normal in signal intensity. There is no abnormal leptomeningeal enhancement. T12-L1: No spinal canal or neural foraminal narrowing. L1-2: No spinal canal or neural foraminal narrowing. L2-3: No spinal canal or neural foraminal narrowing. L3-4: There is facet arthropathy without spinal canal narrowing. There is mild right and moderate left neural foraminal. L4-5: There is moderate intervertebral disc height loss. There is a disc bulge and facet arthropathy without spinal canal narrowing. There is moderate right neural foraminal narrowing. L5-S1: There is facet arthropathy without spinal canal or neural foraminal narrowing. There Urinary bladder is full. 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 DOCUMENT ONLY finding communicated directly to Rich Castillo NP neurosurgery and documented in the [employer] system on 11/10/2022 2:28 PM, Message ID [id number]. -------- FINAL REPORT -------- Dictated By: Armand Barnes Dictated Date: 11/10/2022 14:23 Assigned Physician: Armand Barnes Reviewed and Electronically Signed By: Armand Barnes Signed Date: 11/10/2022 14:52 Workstation ID: [id number] Transcribed By: Self Edit Transcribed Date: 11/10/2022 14:23 [employer] No Panel InformationOrdered By: Gildardo Sotelo on 11-10-2022 [employer] Work Phone: No Panel InformationOrdered By: Armand Barnes on 11-10-2022 [facility] Work Phone: PT Coag (PPP) [Time]on 11-10 aPTT Coag (Bld) [Time] 25.1 s Normal 23.3-35.3 Mo [facility] Comment on above: Performed By: #### 5 902-2 ####[facility] [id number] [place] [address] INR Coag (PPP) [Relative time] 1.1 {INR} NINF - 5.0 [facility] Comment on above: The recommended ther apeutic INR range for most cardiac indications is 2.0-3.0 For high intensity therapy (i.e. mechanical heart valves), the recommended range is 2.5-3.5 Interpretation and review of laboratory results Abnormal [facility] PT Coag (Bld) [Time] 14.8 s High [facility] Protein Fractions Elph [Inte rp]on 11-10-2022 Albumin (Rel %), Serum 61 % Normal [facility] Comment on above: Performed By: #### 1 2851-2 ####[facility] ([facility]) [id number] [place] [address] Albumin [Mass/Vol] 4.3 g/dL Normal 3.5-5.0 [facility] Comment on above: Performed By: #### 1 2851-2 ####[facility] ([facility]) [id number] [place] [address] Alpha 1 Globulin (g/dL) 0.3 g/dL High 0.1-0.2 [facility] Comment on above: Performed By: #### 1 2851-2 ####[facility] ([facility]) [id number] [place] [address] Alpha 1 Globulin Rel % 4 % Normal [facility] Comment on above: Performed By: #### 1 2851-2 ####[facility] ([facility]) [id number] [place] [address] Alpha 2 Globulin (g/dL) 0.9 g/dL Normal 0.5-0.9 [facility] Comment on above: Performed By: #### 1 2851-2 ####[facility] [place] [facility] [id number] [place] [address] Alpha 2 Globulin (Rel %) 13 % Normal [facility] Comment on above: Performed By: #### 1 2851-2 ####[facility] [id number] [place] [address] Beta (g/dL) 0.7 g/dL Normal 0.5-1.0 [facility] Comment on above: Performed By: #### 1 2851-2 ####[facility] [id number] [place] [address] Beta Rel % 10 % Normal [facility] Comment on above: Performed By: #### 1 2851-2 ####[facility] [id number] [place] [address] Gamma Globulin (g/dL) 0.9 g/dL Normal 0.6-1.3 [facility] Comment on above: Performed By: #### 1 1-2 ####[facility] [place] [facility] [id number] [place] [address] Gamma Globulin Rel % 13 % Normal [facility] Comment on above: Performed By: #### 1 2851-2 ####[facility] [place] [facility] [id number] [place] [address] Protein [Mass/Vol] 7.1 g/dL Normal 6.1-7.9 [facility] Comment on above: Performed By: #### 1 2851-2 ####[facility] [place] [facility] [id number] [place] [address] SPEP Interpretation Normal [facility] Comment on above: Result Comment: Poss ible monoclonal gammopathy or pseudo-monoclonal gammopathy. An atypical electrophoretic band is identified which may represent a true M-spike as seen in multiple myeloma, other lymphoproliferative diseases, or benign monoclonal gammopathy. It could also be a kpuanj-U-ecoiv mimicking a monoclonal band. Recommend urine immunofixation now and a repeat serum immunofixation after an interval of time to further evaluate this patient. Alberto Claros M.D. Performed By: #### 1 2851-2 ####[facility] ([facility]) [id number] [place] [address] SARS-CoV-2 (COVID-19) RNA NA A+probe Ql (Resp)on 11-10-2022 Interpretation and review of laboratory results Normal [facility] SARS-CoV-2 (COVID-19) RdRp gene GARTH+probe Ql (Resp) Not detected Not Detected [facility] SARS-CoV-2 RNA Resp Ql GARTH+p robeon 11-10-2022 SARS-CoV-2 (COVID-19) RNA GARTH+probe Ql (Resp) Not detected Normal Not Detected [facility] Comment on above: Performed By: #### 9 4500-6 #### [facility] [address] [place] [address] Sedimentation rateon 023 ESR (Bld) [Velocity] 85 mm/h High [facility] Urinalysis dipstick W Reflex Culture panel (U)on 11-10-2022 Bacteria, Urine Rare Abnormal None [facility] Comment on above: Performed By: #### 5 7019-2 ####[facility] [id number] [place] [address] Bilirubin, Urine Negative Normal Negative [facility] Comment on above: Performed By: #### 5 7019-2 ####[facility] [id number] [place] [address] Blood, Urine 1+ Abnormal Negative [facility] Comment on above: Performed By: #### 5 7019-2 ####[address] [address] Clarity (U) Hazy Abnormal Clear [facility] Comment on above: Performed By: #### 5 7019-2 ####[address] [address] Color (U) Yellow Normal Yellow [facility] Comment on above: Performed By: #### 5 7019-2 ####[address] [address] Glucose Ql (U) Normal Normal Normal [facility] Comment on above: Performed By: #### 5 7019-2 ####[address] [address] Hyaline Casts, Urine 3 /LPF High None [facility] Comment on above: Performed By: #### 5 7019-2 ####[address] [address] Ketones Ql (U) 20 mg/dL Abnormal Negative [facility] Comment on above: Performed By: #### 5 7019-2 ####[address] [address] Leukocytes, Urine Negative Normal Negative [facility] Comment on above: Performed By: #### 5 7019-2 ####[address] [address] Mucus, UA Rare Abnormal None [facility] Comment on above: Performed By: #### 5 7019-2 ####[address] [address] Nitrite, Urine Negative Normal Negative [facility] Comment on above: Performed By: #### 5 7019-2 ####[address] [address] pH (U) 5.0 [pH] Normal 5.0-8.0 [facility] Comment on above: Performed By: #### 5 7019-2 ####[address] [address] Protein (U) [Mass/Vol] 30 mg/dL Abnormal Negative [facility] Comment on above: Performed By: #### 5 7019-2 ####[address] [address] RBC LM.HPF (Urine sed) [#/Area] 1 /[HPF] Normal 0-5 [facility] Comment on above: Performed By: #### 5 7019-2 ####[address] [address] Specific [place] Urine 1.014 Normal 1.002-1.030 [facility] Comment on above: Performed By: #### 5 7019-2 ####[address] [address] Urobilinogen, Urine Normal Normal Normal [facility] Comment on above: Performed By: #### 5 7019-2 ####[address] [address] WBC LM.HPF (Urine sed) [#/Area] 20 /[HPF] High 0-5 [facility] Comment on above: Performed By: #### 5 7019-2 ####[facility] [id number] [place] [address] Bacteria LM.HPF (Urine sed) [#/Area] Rare Abnormal None /HPF [facility] Bilirubin Ql (U) Negative Negative mg/dL [facility] Casts LM.LPF (Urine sed) [#/Area] 3 /[LPF] High None /LPF [facility] Clarity (U) Hazy Abnormal Clear [facility] Color (U) Yellow Yellow [facility] Glucose Ql (U) Normal Normal mg/dL [facility] Hemoglobin Ql (U) 1+ Abnormal Negative [facility] Interpretation and review of laboratory results Abnormal Kristin [facility] Ketones (U) [Mass/Vol] 20 mg/dL Abnormal Negative [facility] Leukocyte esterase Test strip Ql (U) Negative Negative WBCs/mcL [facility] Mucus Ql (Urine sed) Rare Abnormal None /LPF [facility] Nitrite Ql (U) Negative Negative [facility] pH (U) 5.0 [pH] 5.0 - 8.0 pH [facility] Protein (U) [Mass/Vol] 30 mg/dL Abnormal Negative [facility] RBC LM.HPF (Urine sed) [#/Area] 1 /[HPF] [employer] Specific gravity (U) [Rel density] 1.014 1.002 - 1.030 Kristin [facility] Urobilinogen (U) [Mass/Vol] Normal Normal mg/dL [facility]in [facility] WBC LM.HPF (Urine sed) [#/Area] 20 /[HPF] High [facility] Kristin [facility] aPTT Coag (Bld) [Time]on aPTT Coag (PPP) [Time] 25.[address] [facility] Interpretation and review of laboratory results Normal [facility] Kristin [facility] No Panel Informationon 08-21 1. Early glenohumera l joint degenerative change. No acute fracture or dislocation. 2. Degenerative changes in the spine. 3. Fusion of the anterolateral margins of the 1st and 2nd rib unchanged. -------- FINAL REPORT -------- Dictated By: Brendan Painting Dictated Date: 08/21/2022 10:09 Assigned Physician: Brendan Painting Reviewed and Electronically Signed By: Brendan Painting Signed Date: 08/21/2022 10:10 Workstation ID: [id number] Transcribed By: Self Edit Transcribed Date: 08/21/2022 10:09 POWERSCRIBE EXAMINATION TYPE: XR SHOULDER 2+ VIEWS LEFT DATE OF EXAM : 08/21/2022 9:50 AM HISTORY: Left shoulder pain, COMPARISON: Thoracic spine plain films dated 05/07/2022. FINDINGS: Early glenohumeral joint degenerative change. The AC joint is maintained. No acute fracture or dislocation. The visualized left upper lung is clear. There is fusion between the anterolateral margins of the left 1st and 2nd rib. Degenerative changes are seen in the spine. POWERSCRIBE Brendan Painting MD - 08/21/2022 EXAMINATION TYPE: XR SHOULDER 2+ VIEWS LEFT DATE OF EXAM : 08/21/2022 9:50 AM HISTORY: Left shoulder pain, COMPARISON: Thoracic spine plain films dated 05/07/2022. FINDINGS: Early glenohumeral joint degenerative change. The AC joint is maintained. No acute fracture or dislocation. The visualized left upper lung is clear. There is fusion between the anterolateral margins of the left 1st and 2nd rib. Degenerative changes are seen in the spine. IMPRESSION: 1. Early glenohumeral joint degenerative change. No acute fracture or dislocation. 2. Degenerative changes in the spine. 3. Fusion of the anterolateral margins of the 1st and 2nd rib unchanged. -------- FINAL REPORT -------- Dictated By: Brendan Painting Dictated Date: 08/21/2022 10:09 Assigned Physician: Brendan Painting Reviewed and Electronically Signed By: Brendan Painting Signed Date: 08/21/2022 10:10 Workstation ID: [id number] Transcribed By: Self Edit Transcribed Date: 08/21/2022 10:09 [employer] Radiology Study observation (narrative) [employer] Panel InformationOrdered By: Brendan Painting on 08-21-2022 [employer] Work Phone: XR SHOULDER 2+ VIEWS LEFTon 08-21-2022 XR SHOULDER 2+ VIEWS LEFT EXAMINATION TYPE: XR SHOULDER 2+ VIEWS LEFT DATE OF EXAM : 08/21/2022 9:50 AM HISTORY: Left shoulder pain, COMPARISON: Thoracic spine plain films dated 05/07/2022. FINDINGS: Early glenohumeral joint degenerative change. The AC joint is maintained. No acute fracture or dislocation. The visualized left upper lung is clear. There is fusion between the anterolateral margins of the left 1st and 2nd rib. Degenerative changes are seen in the spine. IMPRESSION: 1. Early glenohumeral joint degenerative change. No acute fracture or dislocation. 2. Degenerative changes in the spine. 3. Fusion of the anterolateral margins of the 1st and 2nd rib unchanged. -------- FINAL REPORT -------- Dictated By: Brendan Painting Dictated Date: 08/21/2022 10:09 Assigned Physician: Brendan Painting Reviewed and Electronically Signed By: Brendan Painting Signed Date: 08/21/2022 10:10 Workstation ID: [id number] Transcribed By: Self Edit Transcribed Date: 08/21/2022 10:09 Normal [facility] Hemogram and platelets WO di fferential panel (Bld)on 08-14-2022 Basophils (Bld) [#/Vol] 0.07 10*3/uL Normal 0.00-0.20 [facility] Comment on above: Performed By: #### 2 4317-0 #### [facility] ([facility]) LAB [address] [place] [address] Basophils/100 WBC (Bld) 1.1 % Normal 0.0-2.0 [facility] Comment on above: Performed By: #### 2 4317-0 #### [facility] [address] [place] [address] Eosinophils (Bld) [#/Vol] 0.27 10*3/uL Normal 0.00-0.70 [facility] Comment on above: Performed By: #### 2 4317-0 #### [facility] [address] [place] [address] Eosinophils/100 WBC (Bld) 4.4 % Normal 0.0-7.0 [facility] Comment on above: Performed By: #### 2 4317-0 #### [facility] ([facility]) [address] [address] Erythrocyte distribution width (RBC) [Ratio] 13.0 % Normal 11.0-14.8 [facility] Comment on above: Performed By: #### 2 7-0 #### [facility] ([facility]) [address] [address] Hematocrit (Bld) [Volume fraction] 43.0 % Normal 39.0-49.0 [facility] Comment on above: Performed By: #### 2 7-0 #### [facility] ([facility]) [address] [address] Hemoglobin (Bld) [Mass/Vol] 13.8 g/dL Normal 13.5-17.5 [facility] Comment on above: Performed By: #### 2 4316-0 #### [facility] ([facility]) [address] [address] Immature granulocytes (Bld) [#/Vol] 0.02 10*3/uL Normal 0.00-0.10 [facility] Comment on above: Performed By: #### 2 7-0 #### [facility] ([facility]) [address] [address] Immature granulocytes/100 WBC (Bld) 0.3 % Normal 0.0-1.2 [facility] Comment on above: Performed By: #### 2 7-0 #### [facility] ([facility]) [address] [address] Lymphocytes (Bld) [#/Vol] 2.37 10*3/uL Normal 1.00-4.80 [facility] Comment on above: Performed By: #### 2 7-0 #### [facility] ([facility]) [address] [address] Lymphocytes/100 WBC (Bld) 38.7 % Normal 17.9-49.6 [facility] Comment on above: Performed By: #### 2 7-0 #### [facility] ([facility]) LAB [address] [place] [address] MCH 29.8 pcg Normal 27.0-34.0 [facility] Comment on above: Performed By: #### 2 4317-0 #### [facility] [address] [place] [address] MCHC (RBC) [Mass/Vol] 32.1 g/dL Normal 30.8-35.3 [facility] Comment on above: Performed By: #### 2 4317-0 #### [facility] [address] [place] [address] MCV (RBC) [Entitic vol] 92.9 fL Normal 80.0-97.0 [facility] Comment on above: Performed By: #### 2 7-0 #### [facility] ([facility]) [facility] [address] [place] [address] Monocytes (Bld) [#/Vol] 0.51 10*3/uL Normal 0.00-0.90 [facility] Comment on above: Performed By: #### 2 4317-0 #### [facility] ([facility]) [facility] [address] [place] [address] Monocytes/100 WBC (Bld) 8.3 % Normal 0.0-12.0 [facility] Comment on above: Performed By: #### 2 7-0 #### [facility] ([facility]) [facility] [address] [place] [address] Neutrophils Absolute 2.89 K/mcL Normal 1.80-7.70 [facility] Comment on above: Performed By: #### 2 4317-0 #### [facility] ([facility]) [facility] [address] [place] [address] Neutrophils/100 WBC (Bld) 47.2 % Normal 38.1-75.5 [facility] Comment on above: Performed By: #### 2 4317-0 #### [facility] ([facility]) [facility] [address] [place] [address] Platelet mean volume (Bld) [Entitic vol] 10.9 fL Normal 6.2-12.1 [facility] Comment on above: Performed By: #### 2 4317-0 #### [facility] [address] [place] [address] Platelets (Bld) [#/Vol] 245 10*3/uL Normal 142-424 [facility] Comment on above: Performed By: #### 2 4317-0 #### [facility] [address] [place] [address] RBC (Bld) [#/Vol] 4.63 10*6/uL Normal 4.30-5.70 [facility] Comment on above: Performed By: #### 2 4317-0 #### [facility] [address] [place] [address] WBC (Bld) [#/Vol] 6.1 10*3/uL Normal 4.6-10.2 [facility] Comment on above: Performed By: #### 2 4317-0 #### [facility] [address] [place] [address] [facility] Cholesterol [Mass/Vol] 135 mg/dL Normal <200 Mo [facility] Comment on above: Performed By: #### 3 016-3 #### [facility] [address] [place] [address] Cholesterol in HDL [Mass/Vol] 43 mg/dL Normal >=40 [facility] Comment on above: Performed By: #### 3 016-3 #### [facility] [address] [place] [address] Cholesterol in LDL [Mass/Vol] 73 mg/dL Normal <100 [facility] Comment on above: Performed By: #### 3 016-3 #### [facility] [address] [place] [address] Triglyceride [Mass/Vol] 96 mg/dL Normal <200 [facility] Comment on above: Performed By: #### 3 016-3 #### [facility] ([facility] [address] [place] [address] VLDL Cholesterol James 19.2 mg/dL Normal 2-38 [facility] Comment on above: Performed By: #### 3 016-3 #### [facility] ([facility] [address] [place] [address] No Panel Informationon 05-07 Cervical spine: No acute bony abnormality. Mild multilevel degenerative changes of the cervical spine. Left neural foramen are not optimally in plane on the oblique view. There is suggestion of some right bony neural foraminal narrowing at C5-C6 and C6-C7. Thoracic spine: No acute bony abnormality. Mild degenerative changes of the thoracic spine. -------- FINAL REPORT -------- Dictated By: Kartik Woodward Dictated Date: 05/07/2022 15:10 Assigned Physician: Kartik Woodward Reviewed and Electronically Signed By: Kartik Woodward Signed Date: 05/07/2022 15:12 Workstation ID: [id number] Transcribed By: Self Edit Transcribed Date: 05/07/2022 15:10 POWERSCRIBE EXAM: XR CERVICAL SPINE 4-5 VIEWS, XR THORACIC SPINE 2 VIEWS. DATE OF EXAM: 05/07/2022 12:33 PM. HISTORY: upper back pain. Upper mid back pain for 2 weeks. COMPARISON: Two-view chest x-ray dated 02/23/2017. FINDINGS: Cervical spine: Normal alignment. Vertebral body heights are maintained. Multilevel marginal osteophyte formation. Intervertebral disc and loss at C4-C5 and C5-C6. Left neural foramen are not optimally in plane on the oblique view. Uncovertebral joint hypertrophy with suggestion of some right bony neural foraminal narrowing at C5-C6 and C6-C7. Prevertebral soft tissues unremarkable. Thoracic spine: Normal AP alignment. Vertebral body heights are maintained. Mild multilevel endplate spurring. Minimal intervertebral disc and loss the midthoracic spine. Overlying soft tissues are unremarkable. POWERSCRIBE Kartik Woodward MD - 05/07/2022 EXAM: XR CERVICAL SPINE 4-5 VIEWS, XR THORACIC SPINE 2 VIEWS. DATE OF EXAM: 05/07/2022 12:33 PM. HISTORY: upper back pain. Upper mid back pain for 2 weeks. COMPARISON: Two-view chest x-ray dated 02/23/2017. FINDINGS: Cervical spine: Normal alignment. Vertebral body heights are maintained. Multilevel marginal osteophyte formation. Intervertebral disc and loss at C4-C5 and C5-C6. Left neural foramen are not optimally in plane on the oblique view. Uncovertebral joint hypertrophy with suggestion of some right bony neural foraminal narrowing at C5-C6 and C6-C7. Prevertebral soft tissues unremarkable. Thoracic spine: Normal AP alignment. Vertebral body heights are maintained. Mild multilevel endplate spurring. Minimal intervertebral disc and loss the midthoracic spine. Overlying soft tissues are unremarkable. IMPRESSION: Cervical spine: No acute bony abnormality. Mild multilevel degenerative changes of the cervical spine. Left neural foramen are not optimally in plane on the oblique view. There is suggestion of some right bony neural foraminal narrowing at C5-C6 and C6-C7. Thoracic spine: No acute bony abnormality. Mild degenerative changes of the thoracic spine. -------- FINAL REPORT -------- Dictated By: Kartik Woodward Dictated Date: 05/07/2022 15:10 Assigned Physician: Kartik Woodward Reviewed and Electronically Signed By: Kartik Woodward Signed Date: 05/07/2022 15:12 Workstation ID: [id number] Transcribed By: Self Edit Transcribed Date: 05/07/2022 15:10 [employer] [employer] Radiology Study observation (narrative) [employer] No Panel InformationOrdered By: Kartik Woodward on 05-07-2022 [employer] Work Phone: XR CERVICAL SPINE 4-5 VIEWSo n 05-07-2022 XR CERVICAL SPINE 4-5 VIEWS EXAM: XR CERVICAL SPINE 4-5 VIEWS, XR THORACIC SPINE 2 VIEWS. DATE OF EXAM: 05/07/2022 12:33 PM. HISTORY: upper back pain. Upper mid back pain for 2 weeks. COMPARISON: Two-view chest x-ray dated 02/23/2017. FINDINGS: Cervical spine: Normal alignment. Vertebral body heights are maintained. Multilevel marginal osteophyte formation. Intervertebral disc and loss at C4-C5 and C5-C6. Left neural foramen are not optimally in plane on the oblique view. Uncovertebral joint hypertrophy with suggestion of some right bony neural foraminal narrowing at C5-C6 and C6-C7. Prevertebral soft tissues unremarkable. Thoracic spine: Normal AP alignment. Vertebral body heights are maintained. Mild multilevel endplate spurring. Minimal intervertebral disc and loss the midthoracic spine. Overlying soft tissues are unremarkable. IMPRESSION: Cervical spine: No acute bony abnormality. Mild multilevel degenerative changes of the cervical spine. Left neural foramen are not optimally in plane on the oblique view. There is suggestion of some right bony neural foraminal narrowing at C5-C6 and C6-C7. Thoracic spine: No acute bony abnormality. Mild degenerative changes of the thoracic spine. -------- FINAL REPORT -------- Dictated By: Kartik Woodward Dictated Date: 05/07/2022 15:10 Assigned Physician: Kartik Woodward Reviewed and Electronically Signed By: Kartik Woodward Signed Date: 05/07/2022 15:12 Workstation ID: [id number] Transcribed By: Self Edit Transcribed Date: 05/07/2022 15:10 Normal [facility] XR THORACIC SPINE 2 VIEWSon 05-07-2022 XR THORACIC SPINE 2 VIEWS EXAM: XR CERVICAL SPINE 4-5 VIEWS, XR THORACIC SPINE 2 VIEWS. DATE OF EXAM: 05/07/2022 12:33 PM. HISTORY: upper back pain. Upper mid back pain for 2 weeks. COMPARISON: Two-view chest x-ray dated 02/23/2017. FINDINGS: Cervical spine: Normal alignment. Vertebral body heights are maintained. Multilevel marginal osteophyte formation. Intervertebral disc and loss at C4-C5 and C5-C6. Left neural foramen are not optimally in plane on the oblique view. Uncovertebral joint hypertrophy with suggestion of some right bony neural foraminal narrowing at C5-C6 and C6-C7. Prevertebral soft tissues unremarkable. Thoracic spine: Normal AP alignment. Vertebral body heights are maintained. Mild multilevel endplate spurring. Minimal intervertebral disc and loss the midthoracic spine. Overlying soft tissues are unremarkable. IMPRESSION: Cervical spine: No acute bony abnormality. Mild multilevel degenerative changes of the cervical spine. Left neural foramen are not optimally in plane on the oblique view. There is suggestion of some right bony neural foraminal narrowing at C5-C6 and C6-C7. Thoracic spine: No acute bony abnormality. Mild degenerative changes of the thoracic spine. -------- FINAL REPORT -------- Dictated By: Kartik Woodward Dictated Date: 05/07/2022 15:10 Assigned Physician: Kartik Woodward Reviewed and Electronically Signed By: Kartik Woodward Signed Date: 05/07/2022 15:12 Workstation ID: [id number] Transcribed By: Self Edit Transcribed Date: 05/07/2022 15:10 Normal [facility] ECG 12 lead ([employer])Ordered By: Nati Rodarte on 01-29-2022 [facility] T4 (Thyroxine) Freeon 2020 Free T4 [Mass/Vol] 0.9 Nanogram/dL Normal 0.6-1.6 [facility] Comment on above: Performed By: #### 3 024-7, 3015-3 #### [facility] [address] [place] [address] TSH Qnon 01-22-2021 TSH Qn (Bld) 2.94 mcIU/mL Normal 0.45-5.33 [facility] Comment on above: Performed By: #### 3 024-7, 3015-3 #### [facility] [address] [place] [address] Lipid panel with direct LDLo n 07-25-2020 Cholesterol [Mass/Vol] 157 mg/dL Normal <200 Mo [facility] Comment on above: Result Comment: Refe r to the National Cholesterol Education Program ATP III cut offs for risk stratification. Performed By: #### 3 024-7, 06606-3, 3015-3 #### [facility] [address] [place] [address] Cholesterol in HDL [Mass/Vol] 38 mg/dL Low >40 [facility] Comment on above: Performed By: #### 3 024-7, 52363-0, 3015-3 #### [facility] [address] [place] [address] Cholesterol in LDL [Mass/Vol] 99 mg/dL Normal <100 [facility] Comment on above: Performed By: #### 3 024-7, 01501-2, 3015-3 #### [facility] [address] [place] [address] Cholesterol in VLDL [Mass/Vol] 20 mg/dL Normal 2-38 [facility] Comment on above: Performed By: #### 3 024-7, 40743-2, 3015-3 #### [facility] [address] [place] [address] Triglyceride [Mass/Vol] 102 mg/dL Normal <200 [facility] Comment on above: Performed By: #### 3 024-7, 41434-7, 3 #### [facility] [address] [place] [address] T4 (Thyroxine) Freeon 2019 Free T4 [Mass/Vol] 1.0 Nanogram/dL Normal 0.6-1.6 [facility] Comment on above: Performed By: #### 3 024-7, 99635-7, 3015-3 #### [facility] [address] [place] [address] TSH Qnon 07-25-2020 TSH Qn (Bld) 6.42 mcIU/mL High 0.45-5.33 [facility] Comment on above: Performed By: #### 3 024-7, 26865-6, 3 #### [facility] [address] [place] [address] Vital Signs Date Time Vital Sign Value Performing Clinician Facility 02-01-2025 15:36-0400 Body temperature 97.8 [degF] Dr. Blade Milner DO Work Phone: [facility] 02-01-2025 15:36-0400 Diastolic blood pressure 66 mm[Hg] Dr. Blade Milner DO Work Phone: [facility] 02-01-2025 15:36-0400 Heart rate 59 /min Dr. Blade Milner DO Work Phone: [facility] 02-01-2025 15:36-0400 Respiratory rate 16 /min Dr. Blade Milner DO Work Phone: [facility] 02-01-2025 15:36-0400 SaO2% (BldA) [Mass fraction] 97 % Dr. Blade Milner DO Work Phone: [facility] 02-01-2025 15:36-0400 Systolic blood pressure 117 mm[Hg] Dr. Blade Milner DO Work Phone: [facility] 02-01-2025 13:37-0400 Body height 165.[address] Blade Milner DO Work Phone: [facility] 02-01-2025 13:37-0400 Body mass index (BMI) [Ratio] 31.8 kg/m2 Dr. Blade Milner DO Work Phone: [facility] 02-01-2025 13:37-0400 Body temperature 98.6 [degF] Dr. Blade Milner DO Work Phone: [facility] 02-01-2025 13:37-0400 Body weight 86.[address] Blade Milner DO Work Phone: [facility] 02-01-2025 13:37-0400 Diastolic blood pressure 71 mm[Hg] Dr. Blade Milner DO Work Phone: [facility] 02-01-2025 13:37-0400 Heart rate 52 /min Dr. Blade Milner DO Work Phone: [facility] 02-01-2025 13:37-0400 Respiratory rate 16 /min Dr. Blade Milner DO Work Phone: [facility] 02-01-2025 13:37-0400 SaO2% (BldA) [Mass fraction] 97 % Dr. Blade Milner DO Work Phone: [facility] 02-01-2025 13:37-0400 Systolic blood pressure 116 mm[Hg] Dr. Blade Milner DO Work Phone: [facility] 01-31-2025 19:15-0400 Body temperature 97.4 [degF] Dr. Blade Milner DO Work Phone: [facility] 01-31-2025 19:15-0400 Diastolic blood pressure 80 mm[Hg] Dr. Blade Milner DO Work Phone: [facility] 01-31-2025 19:15-0400 Heart rate 75 /min Dr. Blade Milner DO Work Phone: [facility] 01-31-2025 19:15-0400 Respiratory rate 15 /min Dr. Blade Milner DO Work Phone: [facility] 01-31-2025 19:15-0400 SaO2% (BldA) [Mass fraction] 98 % Dr. Blade Milner DO Work Phone: [facility] 01-31-2025 19:15-0400 Systolic blood pressure 145 mm[Hg] Dr. Blade Milner DO Work Phone: [facility] 01-31-2025 16:57-0400 Body mass index (BMI) [Ratio] 32.1 kg/m2 Dr. Blade Milner DO Work Phone: [facility] 01-31-2025 16:57-0400 Body weight 87.[address] Blade Milner DO Work Phone: [facility] 01-31-2025 16:06-0400 Body height 165.[address] Blade Milner DO Work Phone: [facility] 01-04-2025 13:51-0400 Body height 165.[address] Blade Milner DO Work Phone: [facility] 01-04-2025 13:51-0400 Body mass index (BMI) [Ratio] 29.5 kg/m2 Dr. Blade Milner DO Work Phone: [facility] 01-04-2025 13:51-0400 Body temperature 96 [degF] Dr. Blade Milner DO Work Phone: [facility] 01-04-2025 13:51-0400 Body weight 80.[address] Blade Milner DO Work Phone: [facility] 01-04-2025 13:51-0400 Diastolic blood pressure 72 mm[Hg] Dr. Blade Milner DO Work Phone: [facility] 01-04-2025 13:51-0400 Heart rate 57 /min Dr. Blade Milner DO Work Phone: [facility] 01-04-2025 13:51-0400 Respiratory rate 16 /min Dr. Blade Milner DO Work Phone: [facility] 01-04-2025 13:51-0400 SaO2% (BldA) [Mass fraction] 97 % Dr. Blade Milner DO Work Phone: [facility] 01-04-2025 13:51-0400 Systolic blood pressure 131 mm[Hg] Dr. Blade Milner DO Work Phone: [facility] 12-07-2024 15:14-0400 Body height 165.[address] Blade Milner DO Work Phone: [facility] 12-07-2024 15:14-0400 Body mass index (BMI) [Ratio] 31.9 kg/m2 Dr. Blade Milner DO Work Phone: [facility] 12-07-2024 15:14-0400 Body temperature 98.5 [degF] Dr. Blade Milner DO Work Phone: [facility] 12-07-2024 15:14-0400 Body weight 87.[address] Blade Milner DO Work Phone: [facility] 12-07-2024 15:14-0400 Diastolic blood pressure 73 mm[Hg] Dr. Blade Milner DO Work Phone: [facility] 12-07-2024 15:14-0400 Heart rate 64 /min Dr. Blade Milner DO Work Phone: [facility] 12-07-2024 15:14-0400 Respiratory rate 16 /min Dr. Blade Milner DO Work Phone: [facility] 12-07-2024 15:14-0400 SaO2% (BldA) [Mass fraction] 95 % Dr. Blade Milner DO Work Phone: [facility] 12-07-2024 15:14-0400 Systolic blood pressure 143 mm[Hg] Dr. Blade Milner DO Work Phone: [facility] 11-28-2024 13:48-0500 Body height 165.1 cm Ric Souza MD Work Phone: [facility] 11-28-2024 13:48-0500 Heart rate 71 /min Ric Souza MD Work Phone: [facility] 11-28-2024 13:48-0500 SaO2% (BldA) [Mass fraction] 98 % Ric Souza MD Work Phone: [facility] 11-10-2024 09:45-0500 Body height 165.1 cm Ric Souza MD Work Phone: [facility] 11-10-2024 09:45-0500 Heart rate 72 /min Ric Souza MD Work Phone: [facility] 11-10-2024 09:45-0500 SaO2% (BldA) [Mass fraction] 98 % Ric Souza MD Work Phone: [facility] 11-09-2024 15:08-0500 Body mass index (BMI) [Ratio] 31.5 kg/m2 Dr. Blaed Milner DO Work Phone: [facility] 11-09-2024 15:08-0500 Body temperature 98.3 [degF] Dr. Blade Milner DO Work Phone: [facility] 11-09-2024 15:08-0500 Body weight 85.[address] Blade Milner DO Work Phone: [facility] 11-09-2024 15:08-0500 Diastolic blood pressure 74 mm[Hg] Dr. Blade Milner DO Work Phone: [facility] 11-09-2024 15:08-0500 Heart rate 58 /min Dr. Blade Milner DO Work Phone: [facility] 11-09-2024 15:08-0500 Respiratory rate 16 /min Dr. Blade Milner DO Work Phone: [facility] 11-09-2024 15:08-0500 SaO2% (BldA) [Mass fraction] 96 % Dr. Blade Milner DO Work Phone: [facility] 11-09-2024 15:08-0500 Systolic blood pressure 133 mm[Hg] Dr. Blade Milner DO Work Phone: [facility] 11-02-2024 14:01-0500 Body temperature 98.4 [degF] Dr. Blade Milner DO Work Phone: [facility] 11-02-2024 14:01-0500 Diastolic blood pressure 70 mm[Hg] Dr. Blade Milner DO Work Phone: [facility] 11-02-2024 14:01-0500 Heart rate 50 /min Dr. Blade Milner DO Work Phone: [facility] 11-02-2024 14:01-0500 Respiratory rate 18 /min Dr. Blade Milner DO Work Phone: [facility] 11-02-2024 14:01-0500 SaO2% (BldA) [Mass fraction] 97 % Dr. Blade Milner DO Work Phone: [facility] 11-02-2024 14:01-0500 Systolic blood pressure 109 mm[Hg] Dr. Blade Milner DO Work Phone: [facility] 10-12-2024 14:16-0500 Body mass index (BMI) [Ratio] 31.6 kg/m2 Dr. Blade Milner DO Work Phone: [facility] 10-12-2024 14:16-0500 Body temperature 99.6 [degF] Dr. Blade Milner DO Work Phone: [facility] 10-12-2024 14:16-0500 Body weight 86.[address] Blade Milner DO Work Phone: [facility] 10-12-2024 14:16-0500 Diastolic blood pressure 68 mm[Hg] Dr. Blade Milner DO Work Phone: [facility] 10-12-2024 14:16-0500 Heart rate 60 /min Dr. Blade Milner DO Work Phone: [facility] 10-12-2024 14:16-0500 Respiratory rate 16 /min Dr. Blade Milner DO Work Phone: [facility] 10-12-2024 14:16-0500 SaO2% (BldA) [Mass fraction] 94 % Dr. Blade Milner DO Work Phone: [facility] 10-12-2024 14:16-0500 Systolic blood pressure 130 mm[Hg] Dr. Blade Milner DO Work Phone: [facility] 10-02-2024 21:49-0500 Body temperature 98 [degF] Dr. Blade Milner DO Work Phone: [facility] 10-02-2024 21:49-0500 Diastolic blood pressure 69 mm[Hg] Dr. Blade Milner DO Work Phone: [facility] 10-02-2024 21:49-0500 Heart rate 69 /min Dr. Blade Milner DO Work Phone: [facility] 10-02-2024 21:49-0500 Respiratory rate 16 /min Dr. Blade Milner DO Work Phone: [facility] 10-02-2024 21:49-0500 SaO2% (BldA) [Mass fraction] 99 % Dr. Blade Milner DO Work Phone: [facility] 10-02-2024 21:49-0500 Systolic blood pressure 113 mm[Hg] Dr. Blade iMlner DO Work Phone: [facility] 09-13-2024 13:36-0500 Body mass index (BMI) [Ratio] 30.2 kg/m2 Dr. Blade Milner DO Work Phone: [facility] 09-13-2024 13:36-0500 Body temperature 98.3 [degF] Dr. Blade Milner DO Work Phone: [facility] 09-13-2024 13:36-0500 Body weight 82.[address] Blade Milner DO Work Phone: [facility] 09-13-2024 13:36-0500 Diastolic blood pressure 72 mm[Hg] Dr. Blade Milner DO Work Phone: [facility] 09-13-2024 13:36-0500 Heart rate 56 /min Dr. Blade Milner DO Work Phone: [facility] 09-13-2024 13:36-0500 Respiratory rate 16 /min Dr. Blade Milner DO Work Phone: [facility] 09-13-2024 13:36-0500 SaO2% (BldA) [Mass fraction] 95 % Dr. Blade Milner DO Work Phone: [facility] 09-13-2024 13:36-0500 Systolic blood pressure 122 mm[Hg] Dr. Blade Milner DO Work Phone: [facility] 08-31-2024 13:36-0500 Body temperature 97.2 [degF] Dr. Blade Milner DO Work Phone: [facility] 08-31-2024 13:36-0500 Diastolic blood pressure 57 mm[Hg] Dr. Blade Milner DO Work Phone: [facility] 08-31-2024 13:36-0500 Heart rate 59 /min Dr. Blade Milner DO Work Phone: [facility] 08-31-2024 13:36-0500 Respiratory rate 16 /min Dr. Blade Milner DO Work Phone: [facility] 08-31-2024 13:36-0500 SaO2% (BldA) [Mass fraction] 96 % Dr. Blade Milner DO Work Phone: [facility] 08-31-2024 13:36-0500 Systolic blood pressure 119 mm[Hg] Dr. Blade Milner DO Work Phone: [facility] 08-17-2024 09:49-0500 Body mass index (BMI) [Ratio] 28 kg/m2 Dr. Blade Milner DO Work Phone: [facility] 08-17-2024 09:49-0500 Body temperature 99 [degF] Dr. Blade Milner DO Work Phone: [facility] 08-17-2024 09:49-0500 Body weight 76.[address] Blade Milner DO Work Phone: [facility] 08-17-2024 09:49-0500 Diastolic blood pressure 61 mm[Hg] Dr. Blade Milner DO Work Phone: [facility] 08-17-2024 09:49-0500 Heart rate 51 /min Dr. Blade Milner DO Work Phone: [facility] 08-17-2024 09:49-0500 Respiratory rate 16 /min Dr. Blade Milner DO Work Phone: [facility] 08-17-2024 09:49-0500 SaO2% (BldA) [Mass fraction] 98 % Dr. Blade Milner DO Work Phone: [facility] 08-17-2024 09:49-0500 Systolic blood pressure 104 mm[Hg] Dr. Blade Milner DO Work Phone: [facility] 08-13-2024 13:18-0500 Body temperature 97.9 [degF] Dr. Blade Milner DO Work Phone: [facility] 08-13-2024 13:18-0500 Diastolic blood pressure 69 mm[Hg] Dr. Blade Milner DO Work Phone: [facility] 08-13-2024 13:18-0500 Heart rate 55 /min Dr. Blade Milner DO Work Phone: [facility] 08-13-2024 13:18-0500 Respiratory rate 14 /min Dr. Bldae Milner DO Work Phone: [facility] 08-13-2024 13:18-0500 SaO2% (BldA) [Mass fraction] 98 % Dr. Blade Milner DO Work Phone: [facility] 08-13-2024 13:18-0500 Systolic blood pressure 121 mm[Hg] Dr. Blade Milner DO Work Phone: [facility] 08-09-2024 15:04-0500 Body weight 83.[address] Blade Milner DO Work Phone: [facility] 08-08-2024 09:00-0500 Body mass index (BMI) [Ratio] 30.7 kg/m2 Dr. Blade Milner DO Work Phone: [facility] 07-29-2024 14:01-0400 Inhaled oxygen flow rate 97 L/min Dr. Blade Milner DO Work Phone: [facility] 06-14-2024 13:44-0400 Body temperature 99 [degF] Mickey Munoz DO Work Phone: [facility] 06-14-2024 13:44-0400 Diastolic blood pressure 65 mm[Hg] Mickey Munoz DO Work Phone: [facility] 06-14-2024 13:44-0400 Heart rate 69 /min Mickey Josephe DO Work Phone: [facility] 06-14-2024 13:44-0400 Respiratory rate 18 /min Mickey Josephe DO Work Phone: [facility] 06-14-2024 13:44-0400 Systolic blood pressure 111 mm[Hg] Mickey Josephe DO Work Phone: [facility] 06-05-2024 10:38-0400 Body temperature 98.4 [degF] Mickey Alexander DO Work Phone: [facility] 06-05-2024 10:38-0400 Diastolic blood pressure 63 mm[Hg] Mickey Alexander DO Work Phone: [facility] 06-05-2024 10:38-0400 Heart rate 64 /min Mickey Alexander DO Work Phone: [facility] 06-05-2024 10:38-0400 Respiratory rate 18 /min Mickey Alexander DO Work Phone: [facility] 06-05-2024 10:38-0400 Systolic blood pressure 112 mm[Hg] Mickey Alexander DO Work Phone: [facility] 05-24-2024 13:15-0400 Body temperature 98.91 [degF] Mickey Alexander DO Work Phone: [facility] 05-24-2024 13:15-0400 Diastolic blood pressure 59 mm[Hg] Mickey Alexander DO Work Phone: [facility] 05-24-2024 13:15-0400 Heart rate 80 /min Mickey Alexander DO Work Phone: [facility] 05-24-2024 13:15-0400 Respiratory rate 18 /min Mickey Alexander DO Work Phone: [facility] 05-24-2024 13:15-0400 Systolic blood pressure 103 mm[Hg] Mickey Alexander DO Work Phone: [facility] 05-17-2024 13:19-0400 Body temperature 97.81 [degF] Mickey Alexander DO Work Phone: [facility] 05-17-2024 13:19-0400 Diastolic blood pressure 68 mm[Hg] Mickey Alexander DO Work Phone: [facility] 05-17-2024 13:19-0400 Heart rate 54 /min Mickey Alexander DO Work Phone: [facility] 05-17-2024 13:19-0400 Respiratory rate 18 /min Mickey Alexander DO Work Phone: [facility] 05-17-2024 13:19-0400 Systolic blood pressure 118 mm[Hg] Mickey Alexander DO Work Phone: [facility] 05-08-2024 10:42-0400 Body temperature 98.29 [degF] Leanna Cuencaer PUBLIC[employer] Work Phone: [facility] 05-08-2024 10:42-0400 Diastolic blood pressure 59 mm[Hg] Leanna Mauri PUBLICITY EXPERT - [employer]ER Work Phone: [facility] 05-08-2024 10:42-0400 Heart rate 84 /min Leanna Mauri PUBLICITY EXPERT - [employer]ER Work Phone: [facility] 05-08-2024 10:42-0400 Respiratory rate 18 /min Leanna Cuencaer PUBLICITY EXPERT - [employer]ER Work Phone: [facility] 05-08-2024 10:42-0400 Systolic blood pressure 99 mm[Hg] Leanna Cuencaer PUBLICITY EXPERT - [employer]ER Work Phone: [facility] 05-03-2024 13:35-0400 Body temperature 98.8 [degF] Mickey Alexander DO Work Phone: [facility] 05-03-2024 13:35-0400 Diastolic blood pressure 63 mm[Hg] Mickeyeva Josephe DO Work Phone: [facility] 05-03-2024 13:35-0400 Heart rate 60 /min Mickey Alexander DO Work Phone: [facility] 05-03-2024 13:35-0400 Respiratory rate 18 /min Mickey Alexander DO Work Phone: [facility] 05-03-2024 13:35-0400 Systolic blood pressure 104 mm[Hg] Mickey Alexander DO Work Phone: [facility] 04-26-2024 15:00-0400 Body temperature 97.11 [degF] Mickey Alexander DO Work Phone: [facility] 04-26-2024 15:00-0400 Diastolic blood pressure 51 mm[Hg] Mickey Alexander DO Work Phone: [facility] 04-26-2024 15:00-0400 Heart rate 60 /min Mickey Alexander DO Work Phone: [facility] 04-26-2024 15:00-0400 Respiratory rate 18 /min Mickey Alexander DO Work Phone: [facility] 04-26-2024 15:00-0400 Systolic blood pressure 117 mm[Hg] Mickey Alexander DO Work Phone: [facility] 04-19-2024 13:00-0400 Body temperature 98.8 [degF] Mickey Alexander DO Work Phone: [facility] 04-19-2024 13:00-0400 Diastolic blood pressure 61 mm[Hg] Mickey Alexander DO Work Phone: [facility] 04-19-2024 13:00-0400 Heart rate 56 /min Mickey Alexander DO Work Phone: [facility] 04-19-2024 13:00-0400 Respiratory rate 18 /min Mickey Alexander DO Work Phone: [facility] 04-19-2024 13:00-0400 Systolic blood pressure 102 mm[Hg] Mickey Alexander DO Work Phone: [facility] 04-12-2024 15:18-0400 Body temperature 97 [degF] Dr. Blade Milner DO Work Phone: [facility] 04-12-2024 15:18-0400 Diastolic blood pressure 58 mm[Hg] Dr. Blade Milner DO Work Phone: [facility] 04-12-2024 15:18-0400 Heart rate 57 /min Dr. Blade Milner DO Work Phone: [facility] 04-12-2024 15:18-0400 Respiratory rate 16 /min Dr. Blade Milner DO Work Phone: [facility] 04-12-2024 15:18-0400 SaO2% (BldA) [Mass fraction] 95 % Dr. Blade Milner DO Work Phone: [facility] 04-12-2024 15:18-0400 Systolic blood pressure 94 mm[Hg] Dr. Blade Milner DO Work Phone: [facility] 04-11-2024 15:10-0400 Body temperature 97.39 [degF] Alex Barrientos DPM Work Phone: [facility] 04-11-2024 15:10-0400 Diastolic blood pressure 74 mm[Hg] Alex Barrientos DPM Work Phone: [facility] 04-11-2024 15:10-0400 Heart rate 60 /min Alex Barrientos DPM Work Phone: [facility] 04-11-2024 15:10-0400 Respiratory rate 18 /min Alex Barrientos DPM Work Phone: [facility] 04-11-2024 15:10-0400 Systolic blood pressure 102 mm[Hg] Alex Baldev DPM Work Phone: [facility] 04-07-2024 10:55-0400 Body temperature 98.2 [degF] Mickey Alexander DO Work Phone: [facility] 04-07-2024 10:55-0400 Diastolic blood pressure 65 mm[Hg] Mickey Alexander DO Work Phone: [facility] 04-07-2024 10:55-0400 Heart rate 51 /min Mickey Alexander DO Work Phone: [facility] 04-07-2024 10:55-0400 Respiratory rate 18 /min Mickey Alexander DO Work Phone: [facility] 04-07-2024 10:55-0400 Systolic blood pressure 107 mm[Hg] Mickey Alexander DO Work Phone: [facility] 04-05-2024 13:34-0400 Body temperature 98.6 [degF] Mickey Alexander DO Work Phone: [facility] 04-05-2024 13:34-0400 Diastolic blood pressure 59 mm[Hg] Mickey Alexander DO Work Phone: [facility] 04-05-2024 13:34-0400 Heart rate 54 /min Mickey Alexander DO Work Phone: [facility] 04-05-2024 13:34-0400 Respiratory rate 18 /min Mickey Alexander DO Work Phone: [facility] 04-05-2024 13:34-0400 Systolic blood pressure 98 mm[Hg] Mickey Alexander DO Work Phone: [facility] 03-29-2024 13:36-0400 Body temperature 99 [degF] Mickey Alexander DO Work Phone: [facility] 03-29-2024 13:36-0400 Diastolic blood pressure 66 mm[Hg] Mickey Alexander DO Work Phone: [facility] 03-29-2024 13:36-0400 Heart rate 57 /min Mickey Alexander DO Work Phone: [facility] 03-29-2024 13:36-0400 Respiratory rate 18 /min Mickey Alexander DO Work Phone: [facility] 03-29-2024 13:36-0400 Systolic blood pressure 108 mm[Hg] Mickey Alexander DO Work Phone: [facility] 03-22-2024 10:31-0400 Body height 165.1 cm Mickey Alexander DO Work Phone: [facility] 03-22-2024 10:31-0400 Body mass index (BMI) [Ratio] 28.96 kg/m2 Mickey Alexander DO Work Phone: [facility] 03-22-2024 10:31-0400 Body temperature 98.6 [degF] Mickey Alexander DO Work Phone: [facility] 03-22-2024 10:31-0400 Body weight 78.93 kg Mickey Alexander DO Work Phone: [facility] 03-22-2024 10:31-0400 Diastolic blood pressure 57 mm[Hg] Mickeyeva Munoz DO Work Phone: [facility] 03-22-2024 10:31-0400 Heart rate 48 /min Mickeyeva Munoz DO Work Phone: [facility] 03-22-2024 10:31-0400 Respiratory rate 18 /min Mickey Munoz DO Work Phone: [facility] 03-22-2024 10:31-0400 Systolic blood pressure 93 mm[Hg] Mickey Munoz DO Work Phone: [facility] 03-08-2024 10:42-0400 Body height 165.1 cm Gisel Wolf MD Work Phone: [facility] 03-08-2024 10:42-0400 Body mass index (BMI) [Ratio] 28.96 kg/m2 Gisel Wolf MD Work Phone: [facility] 03-08-2024 10:42-0400 Body temperature 98.29 [degF] Gisel Wolf MD Work Phone: [facility] 03-08-2024 10:42-0400 Body weight 78.93 kg Gisel Wolf MD Work Phone: [facility] 03-08-2024 10:42-0400 Diastolic blood pressure 53 mm[Hg] Gisel Wolf MD Work Phone: [facility] 03-08-2024 10:42-0400 Heart rate 48 /min Gisel Wolf MD Work Phone: [facility] 03-08-2024 10:42-0400 Respiratory rate 16 /min Gisel Wolf MD Work Phone: [facility] 03-08-2024 10:42-0400 SaO2% (BldA) [Mass fraction] 98 % Gisel Wolf MD Work Phone: [facility] 03-08-2024 10:42-0400 Systolic blood pressure 107 mm[Hg] Gisel Wolf MD Work Phone: [facility] 01-19-2024 13:34-0400 Body height 165.[address] Iraida Balderas Work Phone: [facility] 01-19-2024 13:34-0400 Body mass index (BMI) [Ratio] 30.6 kg/m2 Dr. Iraida Balderas Work Phone: [facility] 01-19-2024 13:34-0400 Body temperature 98.7 [degF] Dr. Iraida Balderas Work Phone: [facility] 01-19-2024 13:34-0400 Body weight 83.[address] Iraida Balderas Work Phone: [facility] 01-19-2024 13:34-0400 Diastolic blood pressure 63 mm[Hg] Dr. Iraida Balderas Work Phone: [facility] 01-19-2024 13:34-0400 Heart rate 55 /min Dr. Iraida Balderas Work Phone: [facility] 01-19-2024 13:34-0400 Respiratory rate 16 /min Dr. Iraida Balderas Work Phone: [facility] 01-19-2024 13:34-0400 SaO2% (BldA) [Mass fraction] 95 % Dr. Iraida Balderas Work Phone: [facility] 01-19-2024 13:34-0400 Systolic blood pressure 105 mm[Hg] Dr. Iraida Balderas Work Phone: [facility] 01-13-2024 10:35-0400 Body mass index (BMI) [Ratio] 27.4 kg/m2 Dr. Iraida Balderas Work Phone: [facility] 01-13-2024 10:35-0400 Body temperature 96.6 [degF] Dr. Iraida Balderas Work Phone: [facility] 01-13-2024 10:35-0400 Diastolic blood pressure 51 mm[Hg] Dr. Iraida Balderas Work Phone: [facility] 01-13-2024 10:35-0400 Heart rate 44 /min Dr. Iraida Balderas Work Phone: [facility] 01-13-2024 10:35-0400 Respiratory rate 13 /min Dr. Iraida Balderas Work Phone: [facility] 01-13-2024 10:35-0400 Systolic blood pressure 99 mm[Hg] Dr. Iraida Balderas Work Phone: [facility] 12-27-2023 00:18-0400 Body weight 74.[address] Iraida Balderas Work Phone: [facility] 12-22-2023 13:12-0400 Body height 165.[address] Iraida Balderas Work Phone: [facility] 12-22-2023 13:12-0400 Body mass index (BMI) [Ratio] 30.9 kg/m2 Dr. Iraida Balderas Work Phone: [facility] 12-22-2023 13:12-0400 Body temperature 98.8 [degF] Dr. Iraida Balderas Work Phone: [facility] 12-22-2023 13:12-0400 Body weight 84.[address] Iraida Balderas Work Phone: [facility] 12-22-2023 13:12-0400 Diastolic blood pressure 64 mm[Hg] Dr. Iraida Balderas Work Phone: [facility] 12-22-2023 13:12-0400 Heart rate 48 /min Dr. Iraida Balderas Work Phone: [facility] 12-22-2023 13:12-0400 Respiratory rate 18 /min Dr. Iraida Balderas Work Phone: [facility] 12-22-2023 13:12-0400 SaO2% (BldA) [Mass fraction] 98 % Dr. Iraida Balderas Work Phone: [facility] 12-22-2023 13:12-0400 Systolic blood pressure 108 mm[Hg] Dr. Iraida Balderas Work Phone: [facility] 12-15-2023 13:22-0400 Body mass index (BMI) [Ratio] 27.4 kg/m2 Dr. Iraida Balderas Work Phone: [facility] 12-15-2023 13:22-0400 Body temperature 98.1 [degF] Dr. Iraida Balderas Work Phone: [facility] 12-15-2023 13:22-0400 Diastolic blood pressure 52 mm[Hg] Dr. Iraida Balderas Work Phone: [facility] 12-15-2023 13:22-0400 Heart rate 54 /min Dr. Iraida Balderas Work Phone: [facility] 12-15-2023 13:22-0400 Respiratory rate 18 /min Dr. Iraida Balderas Work Phone: [facility] 12-15-2023 13:22-0400 Systolic blood pressure 99 mm[Hg] Dr. Iraida Balderas Work Phone: [facility] 12-09-2023 10:34-0400 Body mass index (BMI) [Ratio] 27.4 kg/m2 Dr. Iraida Balderas Work Phone: [facility] 12-09-2023 10:34-0400 Body temperature 97.4 [degF] Dr. Iraida Balderas Work Phone: [facility] 12-09-2023 10:34-0400 Diastolic blood pressure 38 mm[Hg] Dr. Iraida Balderas Work Phone: [facility] 12-09-2023 10:34-0400 Heart rate 52 /min Dr. Iraida Balderas Work Phone: [facility] 12-09-2023 10:34-0400 Respiratory rate 18 /min Dr. Iraida Balderas Work Phone: [facility] 12-09-2023 10:34-0400 Systolic blood pressure 97 mm[Hg] Dr. Iraida Balderas Work Phone: [facility] 11-26-2023 00:17-0500 Body weight 74.[address] Iraida Balderas Work Phone: [facility] 11-25-2023 10:28-0500 Body mass index (BMI) [Ratio] 27.4 kg/m2 Dr. Iraida Balderas Work Phone: [facility] 11-25-2023 10:28-0500 Body temperature 97.8 [degF] Dr. Iraida Balderas Work Phone: [facility] 11-25-2023 10:28-0500 Diastolic blood pressure 56 mm[Hg] Dr. Iraida Balderas Work Phone: [facility] 11-25-2023 10:28-0500 Heart rate 60 /min Dr. Iraida Balderas Work Phone: [facility] 11-25-2023 10:28-0500 Respiratory rate 16 /min Dr. Iraida Balderas Work Phone: [facility] 11-25-2023 10:28-0500 Systolic blood pressure 106 mm[Hg] Dr. Iraida Balderas Work Phone: [facility] 11-24-2023 13:08-0500 Body height 165.[address] Iraida Balderas Work Phone: [facility] 11-24-2023 13:08-0500 Body temperature 98.3 [degF] Dr. Iraida Balderas Work Phone: [facility] 11-24-2023 13:08-0500 Diastolic blood pressure 59 mm[Hg] Dr. Iraida Balderas Work Phone: [facility] 11-24-2023 13:08-0500 Heart rate 54 /min Dr. Iraida Balderas Work Phone: [facility] 11-24-2023 13:08-0500 Respiratory rate 18 /min Dr. Iraida Balderas Work Phone: [facility] 11-24-2023 13:08-0500 SaO2% (BldA) [Mass fraction] 98 % Dr. Iraida Balderas Work Phone: [facility] 11-24-2023 13:08-0500 Systolic blood pressure 101 mm[Hg] Dr. Iraida Balderas Work Phone: [facility] 10-28-2023 00:49-0500 Body weight 74.[address] Iraida Balderas Work Phone: [facility] 10-27-2023 11:26-0500 Body height 165.[address] Jenn Perez Work Phone: [facility] 10-27-2023 11:26-0500 Body temperature 98.9 [degF] Dr. Jenn Perez Work Phone: [facility] 10-27-2023 11:26-0500 Diastolic blood pressure 66 mm[Hg] Dr. Jenn Perez Work Phone: [facility] 10-27-2023 11:26-0500 Heart rate 56 /min Dr. Jenn Perez Work Phone: [facility] 10-27-2023 11:26-0500 Respiratory rate 18 /min Dr. Jenn Perez Work Phone: [facility] 10-27-2023 11:26-0500 SaO2% (BldA) [Mass fraction] 98 % Dr. Jenn Perez Work Phone: [facility] 10-27-2023 11:26-0500 Systolic blood pressure 106 mm[Hg] Dr. Jenn Perez Work Phone: [facility] 10-14-2023 10:36-0500 Body mass index (BMI) [Ratio] 27.4 kg/m2 Dr. Jenn Perez Work Phone: [facility] 10-14-2023 10:36-0500 Body temperature 97.8 [degF] Dr. Jenn Perez Work Phone: [facility] 10-14-2023 10:36-0500 Diastolic blood pressure 59 mm[Hg] Dr. Jenn Perez Work Phone: [facility] 10-14-2023 10:36-0500 Heart rate 56 /min Dr. Jenn Perez Work Phone: [facility] 10-14-2023 10:36-0500 Respiratory rate 16 /min Dr. Jenn Perez Work Phone: [facility] 10-14-2023 10:36-0500 Systolic blood pressure 106 mm[Hg] Dr. Jenn Perez Work Phone: [facility] 09-29-2023 13:36-0500 Body height 165.[address] Jenn Perez Work Phone: [facility] 09-29-2023 13:34-0500 Body mass index (BMI) [Ratio] 31.4 kg/m2 Dr. Jenn Perez Work Phone: [facility] 09-29-2023 13:34-0500 Body temperature 99.2 [degF] Dr. Jenn Perez Work Phone: [facility] 09-29-2023 13:34-0500 Body weight 85.[address] Jenn Perez Work Phone: [facility] 09-29-2023 13:34-0500 Diastolic blood pressure 57 mm[Hg] Dr. Jnen Perez Work Phone: [facility] 09-29-2023 13:34-0500 Heart rate 81 /min Dr. Jenn Perez Work Phone: [facility] 09-29-2023 13:34-0500 Respiratory rate 18 /min Dr. Jenn Perez Work Phone: [facility] 09-29-2023 13:34-0500 SaO2% (BldA) [Mass fraction] 94 % Dr. Jenn Perez Work Phone: [facility] 09-29-2023 13:34-0500 Systolic blood pressure 99 mm[Hg] Dr. Jenn Perez Work Phone: [facility] 09-27-2023 00:25-0500 Body weight 74.[address] Jenn Perez Work Phone: [facility] 09-23-2023 10:53-0500 Body mass index (BMI) [Ratio] 27.4 kg/m2 Dr. Jenn Perez Work Phone: [facility] 09-23-2023 10:53-0500 Body temperature 97.4 [degF] Dr. Jenn Perez Work Phone: [facility] 09-23-2023 10:53-0500 Diastolic blood pressure 48 mm[Hg] Dr. Jenn Perez Work Phone: [facility] 09-23-2023 10:53-0500 Heart rate 50 /min Dr. Jenn Perez Work Phone: [facility] 09-23-2023 10:53-0500 Respiratory rate 18 /min Dr. Jenn Perez Work Phone: [facility] 09-23-2023 10:53-0500 Systolic blood pressure 114 mm[Hg] Dr. Jenn Perez Work Phone: [facility] 09-08-2023 10:54-0500 Body height 165.1 cm Gisel Wolf MD Work Phone: [facility] 09-08-2023 10:54-0500 Body temperature 97.2 [degF] Gisel Wolf MD Work Phone: [facility] 09-08-2023 10:54-0500 Diastolic blood pressure 54 mm[Hg] Gisel Wolf MD Work Phone: [facility] 09-08-2023 10:54-0500 Heart rate 53 /min Gisel Wolf MD Work Phone: [facility] 09-08-2023 10:54-0500 Respiratory rate 18 /min Gisel Wolf MD Work Phone: [facility] 09-08-2023 10:54-0500 SaO2% (BldA) [Mass fraction] 98 % Gisel Wolf MD Work Phone: [facility] 09-08-2023 10:54-0500 Systolic blood pressure 97 mm[Hg] Gisel Wolf MD Work Phone: [facility] 09-01-2023 11:03-0500 Body height 165.[address] Jenn Perez Work Phone: [facility] 09-01-2023 11:03-0500 Body mass index (BMI) [Ratio] 27.6 kg/m2 Dr. Jenn Perez Work Phone: [facility] 09-01-2023 11:03-0500 Body temperature 98.2 [degF] Dr. Jenn Perez Work Phone: [facility] 09-01-2023 11:03-0500 Body weight 75.[address] Jenn Perez Work Phone: [facility] 09-01-2023 11:03-0500 Diastolic blood pressure 53 mm[Hg] Dr. Jenn Perez Work Phone: [facility] 09-01-2023 11:03-0500 Heart rate 61 /min Dr. Jenn Perez Work Phone: [facility] 09-01-2023 11:03-0500 Respiratory rate 14 /min Dr. Jenn Perez Work Phone: [facility] 09-01-2023 11:03-0500 SaO2% (BldA) [Mass fraction] 95 % Dr. Jenn Perez Work Phone: [facility] 09-01-2023 11:03-0500 Systolic blood pressure 86 mm[Hg] Dr. Jenn Perez Work Phone: [facility] 08-27-2023 00:51-0500 Body weight 74.[address] Jenn Perez Work Phone: [facility] 08-26-2023 10:32-0500 Body mass index (BMI) [Ratio] 27.4 kg/m2 Dr. Jenn Perez Work Phone: [facility] 08-26-2023 10:32-0500 Body temperature 97.2 [degF] Dr. Jenn Perez Work Phone: [facility] 08-26-2023 10:32-0500 Respiratory rate 18 /min Dr. Jenn Perez Work Phone: [facility] 08-12-2023 09:02-0500 Body height 165.[address] Jenn Perez Work Phone: [facility] 08-12-2023 09:02-0500 Body mass index (BMI) [Ratio] 27.4 kg/m2 Dr. Jenn Perez Work Phone: [facility] 08-12-2023 09:02-0500 Body temperature 97.6 [degF] Dr. Jenn Perez Work Phone: [facility] 08-12-2023 09:02-0500 Body weight 74.[address] Jenn Perez Work Phone: [facility] 08-12-2023 09:02-0500 Diastolic blood pressure 40 mm[Hg] Dr. Jenn Perez Work Phone: [facility] 08-12-2023 09:02-0500 Heart rate 55 /min Dr. Jenn Perez Work Phone: [facility] 08-12-2023 09:02-0500 Respiratory rate 16 /min Dr. Jenn Perez Work Phone: [facility] 08-12-2023 09:02-0500 Systolic blood pressure 92 mm[Hg] Dr. Jenn Perez Work Phone: [facility] 08-04-2023 10:34-0500 Body height 165.[address] Jenn Perez Work Phone: 1(556)[phone] [place] [address] 08-04-2023 10:31-0500 Body temperature 98.9 [degF] Dr. Jenn Perez Work Phone: [facility] 08-04-2023 10:31-0500 Diastolic blood pressure 65 mm[Hg] Dr. Jenn Perez Work Phone: [facility] 08-04-2023 10:31-0500 Heart rate 55 /min Dr. Jenn Perez Work Phone: 8(055)[phone] [place] [address] 08-04-2023 10:31-0500 Respiratory rate 18 /min Dr. Jenn Perez Work Phone: [facility] 08-04-2023 10:31-0500 SaO2% (BldA) [Mass fraction] 96 % Dr. Jenn Perez Work Phone: [facility] 08-04-2023 10:31-0500 Systolic blood pressure 114 mm[Hg] Dr. Jenn Perez Work Phone: [facility] 07-17-2023 03:51-0400 Body height 165.1 cm [employer] Anika [facility] 07-17-2023 03:51-0400 Body temperature 97.9 [degF] [employer] Anika [facility] 07-17-2023 03:51-0400 Diastolic blood pressure 92 mm[Hg] [employer] Anika [facility] 07-17-2023 03:51-0400 Heart rate 82 /min [facility] 07-17-2023 03:51-0400 Respiratory rate 16 /min [facility] 07-17-2023 03:51-0400 SaO2% (BldA) [Mass fraction] 99 % [facility] 07-17-2023 03:51-0400 Systolic blood pressure 135 mm[Hg] [facility] 2023 10:28-0400 Body height 165.1 cm [facility] 2023 10:28-0400 Body mass index (BMI) [Ratio] 26.9 kg/m2 [facility] 2023 10:28-0400 Body temperature 98.5 [degF] [facility] 2023 10:28-0400 Body weight 73.48 kg [facility] 2023 10:28-0400 Diastolic blood pressure 59 mm[Hg] [facility] 2023 10:28-0400 Heart rate 61 /min [facility] 2023 10:28-0400 Respiratory rate 16 /min [facility] 2023 10:28-0400 SaO2% (BldA) [Mass fraction] 97 % [facility] 2023 10:28-0400 Systolic blood pressure 104 mm[Hg] [facility] 04-14-2023 12:24-0400 Body mass index (BMI) [Ratio] 25.79 kg/m2 Gisel Wolf MD Work Phone: [facility] 04-14-2023 12:24-0400 Body temperature 97.7 [degF] Gisel Wolf MD Work Phone: [facility] 04-14-2023 12:24-0400 Body weight 70.31 kg Gisel Wolf MD Work Phone: [facility] 04-14-2023 12:24-0400 Diastolic blood pressure 60 mm[Hg] Gisel Wolf MD Work Phone: [facility] 04-14-2023 12:24-0400 Heart rate 57 /min Gisel Wolf MD Work Phone: [facility] 04-14-2023 12:24-0400 Respiratory rate 20 /min Gisel Wolf MD Work Phone: [facility] 04-14-2023 12:24-0400 SaO2% (BldA) [Mass fraction] 98 % Gisel Wolf MD Work Phone: [facility] 04-14-2023 12:24-0400 Systolic blood pressure 113 mm[Hg] Gisel Wolf MD Work Phone: [facility] 02-04-2023 10:47-0400 Body temperature 98.91 [degF] Emanuel Guerra MD Work Phone: [facility] 02-04-2023 10:47-0400 Diastolic blood pressure 55 mm[Hg] Emanuel Guerra MD Work Phone: [facility] 02-04-2023 10:47-0400 Heart rate 70 /min Emanuel Guerra MD Work Phone: [facility] 02-04-2023 10:47-0400 Systolic blood pressure 107 mm[Hg] Emanuel Guerra MD Work Phone: [facility] 01-29-2023 12:03-0400 Diastolic blood pressure 67 mm[Hg] [facility] 01-29-2023 12:03-0400 Heart rate 70 /min [facility] [employer] 01-29-2023 12:03-0400 Respiratory rate 16 /min [facility] 01-29-2023 12:03-0400 SaO2% (BldA) [Mass fraction] 100 % [facility] 2 [facility] 01-29-2023 12:03-0400 Systolic blood pressure 110 mm[Hg] [facility] 2 [facility] 01-29-2023 08:57-0400 Body height 165.1 cm [facility] 2 [facility] 01-29-2023 08:57-0400 Body mass index (BMI) [Ratio] 25.79 kg/m2 [facility] 2 [facility] 01-29-2023 08:57-0400 Body temperature 98.8 [degF] [facility] 2 [facility] 01-29-2023 08:57-0400 Body weight 70.31 kg [facility] 2 [facility] 12-19-2022 15:02-0400 Body temperature 97.9 [degF] Josef Hand MD Work Phone: [facility] 12-19-2022 15:02-0400 Diastolic blood pressure 62 mm[Hg] Josef Hand MD Work Phone: [facility] 12-19-2022 15:02-0400 Heart rate 74 /min Josef Hand MD Work Phone: [facility] 12-19-2022 15:02-0400 SaO2% (BldA) [Mass fraction] 96 % Josef Hand MD Work Phone: [facility] 12-19-2022 15:02-0400 Systolic blood pressure 108 mm[Hg] Josef Hand MD Work Phone: [facility] 12-18-2022 09:48-0400 Respiratory rate 16 /min Josef Hand MD Work Phone: [facility] 12-17-2022 13:39-0400 Body height 165.1 cm Josef Hand MD Work Phone: [facility] 12-17-2022 13:39-0400 Body mass index (BMI) [Ratio] 26.63 kg/m2 Josef Hand MD Work Phone: [facility] 12-17-2022 13:39-0400 Body weight 72.58 kg Josef Hand MD Work Phone: [employer] 12-09-2022 11:17-0400 Body temperature 98.6 [degF] Marcello Bear DO Work Phone: [employer] 12-09-2022 11:17-0400 Diastolic blood pressure 75 mm[Hg] Marcello Bear DO Work Phone: [employer] 12-09-2022 11:17-0400 Heart rate 68 /min Marcello Bear DO Work Phone: [employer] 12-09-2022 11:17-0400 Respiratory rate 16 /min Marcello Bear DO Work Phone: [employer] 12-09-2022 11:17-0400 SaO2% (BldA) [Mass fraction] 97 % Marcello Bear DO Work Phone: [employer] [facility] 12-09-2022 11:17-0400 Systolic blood pressure 117 mm[Hg] Marcello Bear DO Work Phone: [employer] 12-01-2022 18:10-0500 Body height 175.3 cm Marcello Bear DO Work Phone: [employer] [facility] 12-01-2022 18:10-0500 Body mass index (BMI) [Ratio] 25.1 kg/m2 Marcello Bear DO Work Phone: [employer] 12-01-2022 18:10-0500 Body weight 77.11 kg Marcello Bear DO Work Phone: [employer] 11-30-2022 12:45-0500 Body mass index (BMI) [Ratio] 28.29 kg/m2 Emanuel Guerra MD Work Phone: [employer] [facility] 11-30-2022 12:45-0500 Body temperature 99.1 [degF] Emanuel Guerra MD Work Phone: [employer] 11-30-2022 12:45-0500 Body weight 77.11 kg Emanuel Guerra MD Work Phone: [employer] Comment on above: stated 11-30-2022 12:45-0500 Diastolic blood pressure 70 mm[Hg] Emanuel Guerra MD Work Phone: [facility] 11-30-2022 12:45-0500 Heart rate 80 /min Emanuel Guerra MD Work Phone: [facility] 11-30-2022 12:45-0500 Respiratory rate 10 /min Emanuel Guerra MD Work Phone: [facility] 11-30-2022 12:45-0500 SaO2% (BldA) [Mass fraction] 97 % Emanuel Geurra MD Work Phone: [facility] 11-30-2022 12:45-0500 Systolic blood pressure 116 mm[Hg] Emanuel Guerra MD Work Phone: [facility] 11-21-2022 11:44-0500 Body temperature 97 [degF] Rico Bhat MD Work Phone: [facility] 11-21-2022 11:44-0500 Diastolic blood pressure 69 mm[Hg] Rico Bhat MD Work Phone: [facility] 11-21-2022 11:44-0500 Heart rate 54 /min Rico Bhat MD Work Phone: [facility] 11-21-2022 11:44-0500 Respiratory rate 16 /min Rico Bhat MD Work Phone: [facility] 11-21-2022 11:44-0500 SaO2% (BldA) [Mass fraction] 97 % Rico Bhat MD Work Phone: [facility] 11-21-2022 11:44-0500 Systolic blood pressure 119 mm[Hg] Rico Bhat MD Work Phone: [facility] 11-10-2022 10:47-0500 Body height 165.1 cm Rico Bhat MD Work Phone: [facility] 11-10-2022 10:47-0500 Body mass index (BMI) [Ratio] 29.62 kg/m2 Rico Bhat MD Work Phone: [employer] 11-10-2022 10:47-0500 Body weight 80.74 kg Rico Bhat MD Work Phone: [facility] 10-09-2022 08:28-0500 Body height 165.1 cm Salena Flores [employer] Work Phone: [facility] 10-09-2022 08:28-0500 Body mass index (BMI) [Ratio] 30.79 kg/m2 Salena Flores [employer] Work Phone: [employer] 10-09-2022 08:28-0500 Body temperature 99.1 [degF] Salena Flores [employer] Work Phone: [employer] 10-09-2022 08:28-0500 Body weight 83.92 kg Salena Flores [employer] Work Phone: [facility] 10-09-2022 08:28-0500 Diastolic blood pressure 78 mm[Hg] Salena Flores [employer] Work Phone: [employer] 10-09-2022 08:28-0500 Heart rate 52 /min Salena Flores [employer] Work Phone: [employer] 10-09-2022 08:28-0500 SaO2% (BldA) [Mass fraction] 97 % Salena Flores [employer] Work Phone: [facility] 10-09-2022 08:28-0500 Systolic blood pressure 120 mm[Hg] Salena Flores [employer] Work Phone: [employer] 08-21-2022 08:55-0500 Body height 165.1 cm Salena Flores [employer] Work Phone: [employer] 08-21-2022 08:55-0500 Body mass index (BMI) [Ratio] 29.79 kg/m2 Salena Flores [employer] Work Phone: [employer] 08-21-2022 08:55-0500 Body temperature 97.7 [degF] Salena Flores [employer] Work Phone: [facility] 08-21-2022 08:55-0500 Body weight 81.19 kg Salena Flores [employer] Work Phone: [facility] 08-21-2022 08:55-0500 Diastolic blood pressure 69 mm[Hg] Salena Flores [employer] Work Phone: [facility] 08-21-2022 08:55-0500 Heart rate 49 /min Salena Flores [employer] Work Phone: [facility] 08-21-2022 08:55-0500 Respiratory rate 16 /min Salena Flores [employer] Work Phone: [facility] 08-21-2022 08:55-0500 SaO2% (BldA) [Mass fraction] 99 % Salena Flores [employer] Work Phone: [facility] 08-21-2022 08:55-0500 Systolic blood pressure 124 mm[Hg] Salena Flores [employer] Work Phone: [facility] 07-30-2022 08:20-0400 Body height 165.1 cm Salena Flores [employer] Work Phone: [facility] 07-30-2022 08:20-0400 Body mass index (BMI) [Ratio] 30.95 kg/m2 Salena Flores [employer] Work Phone: [facility] 07-30-2022 08:20-0400 Body temperature 98.8 [degF] Salena Flores [employer] Work Phone: [facility] 07-30-2022 08:20-0400 Body weight 84.37 kg Salena Flores [employer] Work Phone: [facility] 07-30-2022 08:20-0400 Diastolic blood pressure 70 mm[Hg] Salena Flores [employer] Work Phone: [facility] 07-30-2022 08:20-0400 Heart rate 55 /min Saelna Flores [employer] Work Phone: [employer] 07-30-2022 08:20-0400 SaO2% (BldA) [Mass fraction] 95 % Salena Flores [employer] Work Phone: [facility] 07-30-2022 08:20-0400 Systolic blood pressure 130 mm[Hg] Salena Flores [employer] Work Phone: [employer] 06-15-2022 13:21-0400 Body height 165.1 cm Armand José MD Work Phone: [employer] 06-15-2022 13:21-0400 Body mass index (BMI) [Ratio] 30.39 kg/m2 Armand José MD Work Phone: [employer] [facility] 06-15-2022 13:21-0400 Body weight 82.83 kg Armand José MD Work Phone: [facility] 06-15-2022 13:21-0400 Diastolic blood pressure 84 mm[Hg] Armand José MD Work Phone: [employer] [facility] 06-15-2022 13:21-0400 Heart rate 64 /min Armand José MD Work Phone: [employer] 06-15-2022 13:21-0400 Systolic blood pressure 149 mm[Hg] Armand José MD Work Phone: [employer] 05-07-2022 11:35-0400 Body height 165.1 cm Salena Flores [employer] Work Phone: [employer] [facility] 05-07-2022 11:35-0400 Body mass index (BMI) [Ratio] 30.22 kg/m2 Salena Flores [employer] Work Phone: [employer] [facility] 05-07-2022 11:35-0400 Body temperature 98.29 [degF] Salena Flores [employer] Work Phone: [employer] [facility] 05-07-2022 11:35-0400 Body weight 82.37 kg Salena Flores [employer] Work Phone: [employer] 05-07-2022 11:35-0400 Diastolic blood pressure 88 mm[Hg] Salena Flores [employer] Work Phone: [employer] 05-07-2022 11:35-0400 Heart rate 60 /min Salena Flores [employer] Work Phone: [facility] 05-07-2022 11:35-0400 SaO2% (BldA) [Mass fraction] 99 % Salena Flores [employer] Work Phone: [employer] 05-07-2022 11:35-0400 Systolic blood pressure 130 mm[Hg] Salena Flores [employer] Work Phone: [employer] [facility] 04-29-2022 12:59-0400 Body height 165.1 cm Salena Flores [employer] Work Phone: [employer] [facility] 04-29-2022 12:59-0400 Body mass index (BMI) [Ratio] 30.35 kg/m2 Salena Flores [employer] Work Phone: [employer] [facility] 04-29-2022 12:59-0400 Body temperature 98.4 [degF] Salena Flores [employer] Work Phone: [employer] 04-29-2022 12:59-0400 Body weight 82.74 kg Salena Flores [employer] Work Phone: [facility] 04-29-2022 12:59-0400 Diastolic blood pressure 88 mm[Hg] Salena Flores [employer] Work Phone: [facility] [employer] [facility] 04-29-2022 12:59-0400 Heart rate 62 /min Salena Flores [employer] Work Phone: [facility] 04-29-2022 12:59-0400 SaO2% (BldA) [Mass fraction] 99 % Salena Flores [employer] Work Phone: [employer] [facility] 04-29-2022 12:59-0400 Systolic blood pressure 128 mm[Hg] Salena Flores [employer] Work Phone: [employer] 04-07-2022 15:00-0400 Body height 165.1 cm Salena Flores [employer] Work Phone: [facility] 04-07-2022 15:00-0400 Body mass index (BMI) [Ratio] 30.75 kg/m2 Salena Flores [employer] Work Phone: [facility] 04-07-2022 15:00-0400 Body weight 83.83 kg Salena Flores [employer] Work Phone: [facility] 04-07-2022 15:00-0400 Diastolic blood pressure 82 mm[Hg] Salena Flores [employer] Work Phone: [facility] 04-07-2022 15:00-0400 Heart rate 58 /min Salena Flores [employer] Work Phone: [facility] 04-07-2022 15:00-0400 SaO2% (BldA) [Mass fraction] 98 % Salena Flores [employer] Work Phone: [facility] 04-07-2022 15:00-0400 Systolic blood pressure 138 mm[Hg] Salena Flores [employer] Work Phone: [facility] 02-16-2022 14:22-0400 Body height 165.1 cm Salena Flores [employer] Work Phone: [facility] 02-16-2022 14:22-0400 Body mass index (BMI) [Ratio] 30.72 kg/m2 Salena Flores [employer] Work Phone: [facility] 02-16-2022 14:22-0400 Body temperature 98.6 [degF] Salena Flores [employer] Work Phone: [facility] 02-16-2022 14:22-0400 Body weight 83.73 kg Salena Flores [employer] Work Phone: [facility] 02-16-2022 14:22-0400 Diastolic blood pressure 82 mm[Hg] Salena Flores [employer] Work Phone: [facility] 02-16-2022 14:22-0400 Heart rate 54 /min Salena Flores [employer] Work Phone: [facility] 02-16-2022 14:22-0400 SaO2% (BldA) [Mass fraction] 97 % Salena Flores [employer] Work Phone: [facility] 02-16-2022 14:22-0400 Systolic blood pressure 122 mm[Hg] Salena Flores [employer] Work Phone: [facility] 01-29-2022 07:36-0400 Body height 165.1 cm Salena Flores [employer] Work Phone: [facility] 01-29-2022 07:36-0400 Body mass index (BMI) [Ratio] 30.99 kg/m2 Salena Flores [employer] Work Phone: [facility] 01-29-2022 07:36-0400 Body temperature 99 [degF] Salena Flores [employer] Work Phone: [facility] 01-29-2022 07:36-0400 Body weight 84.46 kg Salena Flores [employer] Work Phone: [facility] 01-29-2022 07:36-0400 Diastolic blood pressure 80 mm[Hg] Salena Flores [employer] Work Phone: [facility] 01-29-2022 07:36-0400 Heart rate 55 /min Salena Flores [employer] Work Phone: [facility] 01-29-2022 07:36-0400 SaO2% (BldA) [Mass fraction] 98 % Salena Flores [employer] Work Phone: [facility] 01-29-2022 07:36-0400 Systolic blood pressure 118 mm[Hg] Salena Flores [employer] Work Phone: [facility] 07-31-2021 08:15-0400 Diastolic blood pressure 68 mm[Hg] Petros Bartholomew MD Work Phone: [facility] 07-31-2021 08:15-0400 Systolic blood pressure 128 mm[Hg] Petros Bartholomew MD Work Phone: [employer] [employer] [facility] 07-31-2021 07:48-0400 Body height 165.1 cm Petros Bartholomew MD Work Phone: [employer] [employer] [facility] 07-31-2021 07:48-0400 Body mass index (BMI) [Ratio] 30.32 kg/m2 Petros Bartholomew MD Work Phone: [employer] [facility] 07-31-2021 07:48-0400 Body temperature 98.29 [degF] Petros Bartholomew MD Work Phone: [employer] 07-31-2021 07:48-0400 Body weight 82.64 kg Petros Bartholomew MD Work Phone: [employer] [facility] 07-31-2021 07:48-0400 Heart rate 51 /min Petros Bartholomew MD Work Phone: [employer] 07-31-2021 07:48-0400 Respiratory rate 16 /min Petros Bartholomew MD Work Phone: [employer] 07-31-2021 07:48-0400 SaO2% (BldA) [Mass fraction] 98 % Petros Bartholomew MD Work Phone: [facility] Encounters Encounter Date Encounter Type Care Provider Facility Start: 02-20-2025 End: 02-20-[address] Blade Milner DO Work Phone: [facility] Work Phone: Start: 02-20-2025 End: 02-20-[address] Blade Milner MD -[facility] Work Phone: Start: 02-20-2025 End: 02-20-2025 ambulatory Blade Milner Facility:[facility] Start: 02-01-2025 End: 02-01-2025 Telephone encounter Ric Souza MD Work Phone: [facility] Start: 02-01-[address] Roby Perez MD -[facility] Start: 02-01-2025 End: 02-01-2025 Patient encounter procedure Zayda Hanson NP-C -[facility] Work Phone: Start: 02-01-2025 End: 02-01-2025 ambulatory [facility] [place] [place]: 01-31-2025 End: 01-31-2025 Emergency department patient visit Dr. Blade Milner DO Work Phone: -Emergency Department Work Phone: Start: 01-11-2025 End: 01-11-[address] Blade Milner DO Work Phone: [facility] Work Phone: Start: 01-11-2025 End: 01-11-[address] Blade Milner MD -[facility] Work Phone: Start: 01-11-[address] Blade alaniz MD -[facility] Work Phone: Start: 01-11-2025 End: 01-11-2025 ambulatory [facility] Start: 01-04-2025 End: 01-04-[address] Blade Milner DO Work Phone: [facility] Work Phone: Start: 01-04-2025 End: 01-04-2025 Patient encounter procedure Zayda DEGROOT -[facility] Work Phone: Start: 01-04-[address] Roby Perez MD -[facility] Start: 01-04-2025 End: 01-04-2025 Patient encounter procedure Zayda Hanson NP-C -[facility] Work Phone: Start: 01-04-2025 End: 01-04-2025 ambulatory [facility] Start: 01-04-2025 End: 01-04-2025 ambulatory [facility] Start: 12-11-2024 End: 12-11-[address] Blade Milner DO Work Phone: [facility] Work Phone: Start: 12-11-2024 End: 12-11-[address] Blade Milner MD -[facility] Work Phone: Start: 12-11-2024 End: 12-11-2024 ambulatory [facility] Facility:[facility] Start: 12-07-[address] Roby Perez MD -[facility] Start: 12-07-2024 End: 12-07-[address] Jenn Perez MD -[facility] Work Phone: Start: 12-07-2024 End: 12-07-2024 ambulatory [facility] Facility:[facility] Start: 11-28-2024 End: 11-28-2024 Nursing evaluation of patient and report Nurse Urol Christin Work Phone: [facility] Comment on above: Benign prostatic hyp erplasia with urinary retention (Primary Dx) Start: 11-28-2024 End: 11-28-2024 Patient encounter procedure Ric Souza MD Work Phone: [facility] Comment on above: Benign prostatic hyp erplasia with urinary retention (Primary Dx); Neurogenic bladder Start: 11-28-2024 End: 11-28-2024 ambulatory RIC SOUZA Facility:[facility] Start: 11-21-2024 End: 11-21-2024 Patient encounter procedure Joyce GIL -[facility] Work Phone: Start: 11-21-2024 End: 11-21-2024 ambulatory [facility] Facility:[facility] Start: 11-10-2024 End: 11-10-2024 ambulatory RIC SOUZA Facility:[place] Start: 11-10-2024 End: 11-10-2024 Subsequent hospital visit by physician [facility] Work Phone: Radiology Comment on above: Benign prostatic hyp erplasia with urinary retention [N40.1, R33.8] Start: 11-10-2024 End: 11-10-2024 Patient encounter procedure Ric Souza MD Work Phone: [facility] Comment on above: Benign prostatic hyp erplasia with urinary retention (Primary Dx) Start: 11-10-2024 End: 11-10-2024 ambulatory RIC SOUZA Facility:[facility] Start: 11-09-2024 End: 11-09-2024 Patient encounter procedure Zayda ReidValentin APERTURE MASK ETCHER-C -[facility] Work Phone: Start: 11-09-2024 End: 11-09-2024 ambulatory [facility] Facility:[facility] Start: 11-02-2024 End: 11-02-[address] Oren Olivera MD -[facility] Work Phone: Start: 11-02-2024 End: 11-02-2024 ambulatory [facility] Facility:[facility] Start: 10-20-2024 ambulatory [facility] Facility: [facility] Start: 10-20-[address] Blade alaniz MD -[facility] Work Phone: Start: 10-12-2024 End: 10-12-2024 Patient encounter procedure Zayda Valentin APERTURE MASK ETCHER-C -[facility] Work Phone: Start: 10-12-2024 End: 10-12-2024 ambulatory [facility] Facility:[facility] Start: 10-06-2024 End: 10-06-2024 Telephone encounter Ric Souza MD Work Phone: [facility] Comment on above: Appointment Start: 10-02-2024 End: 10-02-2024 Emergency department patient visit Dr. Arturo Snyder MD -Emergency Department Work Phone: Start: 09-13-2024 End: 09-13-[address] Jenn Perez MD -[facility] Work Phone: Start: 09-13-2024 End: 09-13-2024 ambulatory [facility] Facility:[facility] Start: 09-06-2024 ambulatory [facility] Facilit [facility] Start: 08-31-2024 End: 08-31-[address] Oren Olivera MD -[facility] Work Phone: Start: 08-31-2024 End: 08-31-2024 ambulatory [facility] Facility:[facility] Start: 08-17-2024 End: 08-17-2024 Patient encounter procedure Zayda ReidValentin APERTURE MASK ETCHER-C -[facility] Work Phone: Start: 08-17-2024 End: 08-17-2024 ambulatory [facility] Start: 08-11-2024 Non-patient / Non-visit Dr. Oren cho MD -[facility] Start: 08-09-2024 Non-patient / Non-visit Dr. Oren cho MD -[facility] Start: 07-10-2024 ambulatory [facility] Facility: [facility] Start: 07-10-2024 End: 08-13-2024 Evaluation and management of inpatient Dr. Burt Kaba MD -Trans[facility] Unit Start: 06-18-2024 ambulatory [facility]: [facility] Start: 06-18-2024 End: 07-10-2024 Evaluation and management of inpatient [facility] Facility:[facility] Start: 06-14-2024 End: 06-14-2024 Subsequent hospital visit by physician Mickey Munoz DO Work Phone: [facility] Comment on above: Arrived Start: 06-14-2024 End: 06-14-2024 ambulatory [facility] Start: 06-08-2024 End: 06-08-2024 [facility] Start: 06-07-2024 End: 06-07-2024 ambulatory Iraida S Joll[facility] Facility:[facility] Start: 06-05-2024 End: 06-05-2024 Subsequent hospital visit by physician Mickey Munoz DO Work Phone: [facility] Comment on above: Disruption of manager account management al operation (surgical) wound, not elsewhere classified, sequela Start: 06-05-2024 End: 06-05-2024 ambulatory [facility] Start: 05-24-2024 End: 05-24-2024 Office outpatient visit 15 minutes Miceky Munoz DO Work Phone: [facility] Comment on above: Disruption of manager account management al operation (surgical) wound, not elsewhere classified, sequela (Primary Dx); 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; Multiple myeloma, remission status unspecified ([facility] Start: 05-24-2024 End: 05-24-2024 ambulatory [facility] Start: 05-17-2024 End: 05-17-2024 ambulatory [facility] Start: 05-17-2024 End: 05-17-2024 Office outpatient visit 15 minutes Mickey Munoz DO Work Phone: [facility] Comment on above: Disruption of manager account management al operation (surgical) wound, not elsewhere classified, sequela (Primary Dx); 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; Multiple myeloma, remission status unspecified ([facility]) Start: 05-17-2024 End: 05-17-2024 Subsequent hospital visit by physician Mickey Munoz DO Work Phone: [facility] Comment on above: [facility] Start: 05-10-2024 End: 05-10-2024 [facility] Start: 05-08-2024 End: 05-08-2024 Office outpatient visit 15 minutes Leanna Osborne APRN - LOCK TENDER Work Phone: [facility] Comment on above: Disruption of manager account management al operation (surgical) wound, not elsewhere classified, sequela (Primary Dx); 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; Multiple myeloma, remission status unspecified ([facility]) Start: 05-08-2024 End: 05-08-2024 ambulatory LEANNA OSBORNE [facility] Start: 05-03-2024 End: 05-03-2024 Office outpatient visit 15 minutes Mickey Munoz DO Work Phone: [facility] Comment on above: Disruption of manager account management al operation (surgical) wound, not elsewhere classified, sequela (Primary Dx); 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; Multiple myeloma, remission status unspecified (HCC) Start: 05-03-2024 End: 05-03-2024 ambulatory [facility] Start: 04-26-2024 End: 04-26-2024 Office outpatient visit 15 minutes Mickey Munoz DO Work Phone: [facility] Comment on above: Disruption of manager account management al operation (surgical) wound, not elsewhere classified, sequela (Primary Dx); 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; Multiple myeloma, remission status unspecified (HCC) Start: 04-26-2024 End: 04-26-2024 ambulatory [facility] Start: 04-19-2024 End: 04-19-2024 Office outpatient visit 15 minutes Mickey Munoz DO Work Phone: [facility] Comment on above: Disruption of manager account management al operation (surgical) wound, not elsewhere classified, sequela (Primary Dx); 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; Multiple myeloma, remission status unspecified (HCC) Start: 04-19-2024 End: 04-19-2024 ambulatory [facility] Start: 04-12-2024 End: 04-12-2024 [facility] Start: 04-11-2024 End: 04-11-2024 Subsequent hospital visit by physician Alex Barrientos DPM Work Phone: [facility] Comment on above: Disruption of manager account management al operation (surgical) wound, not elsewhere classified, sequela Start: 04-11-2024 End: 04-11-2024 ambulatory ALEX [facility] Start: 04-07-2024 End: 04-07-2024 Subsequent hospital visit by physician Mickey Munoz DO Work Phone: [facility] Comment on above: Disruption of manager account management al operation (surgical) wound, not elsewhere classified, sequela Start: 04-07-2024 End: 04-07-2024 ambulatory [facility] Start: 04-05-2024 End: 04-05-2024 Office outpatient visit 25 minutes [facility] DO [facility] Comment on above: Disruption of manager account management al operation (surgical) wound, not elsewhere classified, sequela (Primary Dx); 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; Multiple myeloma, remission status unspecified (HCC) Start: 04-05-2024 End: 04-05-2024 ambulatory [facility] Start: 03-29-2024 End: 03-29-2024 Office outpatient visit 15 minutes Mickey Munoz DO Work Phone: [facility] Comment on above: Disruption of manager account management al operation (surgical) wound, not elsewhere classified, sequela (Primary Dx); 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; Multiple myeloma, remission status unspecified (HCC) Start: 03-29-2024 End: 03-29-2024 ambulatory [facility] Start: 03-22-2024 End: 03-22-2024 ambulatory [facility] Start: 03-22-2024 End: 03-22-2024 Office outpatient new 30 minutes Mickey Munoz DO Work Phone: [facility] Comment on above: Disruption of manager account management al operation (surgical) wound, not elsewhere classified, sequela (Primary Dx); Multiple myeloma, remission status unspecified (HCC); 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 Start: 03-15-2024 End: 03-15-2024 ambulatory Iraida Balderas Facility:[facility] Start: 03-08-2024 End: 03-08-2024 Office outpatient visit 40 minutes Gisel Wolf MD Work Phone: Division of Hematology & Oncology at [facility] Comment on above: Multiple myeloma, re mission status unspecified (Primary Dx) Start: 03-08-2024 ambulatory GISEL WOLF Facility:[facility] Start: 03-07-2024 ambulatory Iraida Balderas Facility: [facility] Start: 03-01-2024 End: 03-01-2024 ambulatory [facility] Facility:[facility] Start: 01-19-[address] Iraida edmonds Work Phone: [facility] On[facility] Start: 01-19-2024 End: 01-19-[address] Iraida Balderas Work Phone: [facility] Work Phone: Start: 01-13-2024 Non-patient / Non-visit Dr. Oniel Balderas Work Phone: [facility] Work Phone: Start: 01-13-2024 End: 01-25-[address] Iraida Balderas Work Phone: [facility] Work Phone: Start: 01-13-2024 End: 01-25-[address] [facility] Work [facility]: Start: 01-13-[address] Iraida brunson Work Phone: [facility] Work Phone: Start: 12-30-2023 Non-patient / Non-visit Dr. Oniel Balderas Work Phone: [facility] Work Phone: Start: 12-22-[address] Iraida edmonds Work Phone: [facility] On[facility] Start: 12-22-2023 End: 12-22-[address] Iraida Balderas Work Phone: [facility] Work Phone: Start: 12-15-2023 Non-patient / Non-visit Dr. Oniel Balderas Work Phone: [facility] Start: 12-15-2023 End: 12-26-[address] Iraida Balderas Work Phone: [facility] Work Phone: Start: 12-15-2023 End: 12-26-[address] Iraida Bal[facility]as [facility] Work Phone: Start: 12-13-2023 End: 12-13-[address] Iraida Balderas Work Phone: [facility] Work Phone: Start: 12-13-2023 End: 12-13-[address] Iraida Balderas Work Phone: [facility] Work Phone: Start: 12-09-2023 Non-patient / Non-visit Dr. Oniel Balderas Work Phone: [facility] Work Phone: Start: 12-09-[address] Iraida edmonds Work Phone: [facility] Work Phone: Start: 11-25-2023 Non-patient / Non-visit Dr. Oniel Balderas Work Phone: [facility] Work Phone: Start: 11-25-2023 End: 11-25-[address] Iraida Balderas Work Phone: [facility] Work Phone: Start: 11-25-2023 End: 11-25-[address] Iraida Balderas Work Phone: [facility] Work Phone: Start: 11-24-[address] Iraida edmonds Work Phone: [facility] On[facility] Start: 11-24-2023 End: 11-24-[address] Iraida Balderas Work Phone: [facility] Work Phone: Start: 11-11-2023 Non-patient / Non-visit Dr. Oniel Balderas Work Phone: [facility] Work Phone: Start: 10-28-2023 Non-patient / Non-visit Dr. Oniel Balderas Work Phone: [facility] Work Phone: Start: 10-27-[address] Roby Perez Work Phone: [facility] Start: 10-27-2023 End: 10-27-[address] Jenn Perez Work Phone: [facility] Work Phone: Start: 10-14-2023 Non-patient / Non-visit Dr. Lorene Perez Work Phone: [facility] Work Phone: Start: 10-14-2023 End: 10-27-[address] Jenn Perez Work Phone: [facility] Work Phone: Start: 10-14-2023 End: 10-27-[address] Jenn Perez Work Phone: [facility] Work Phone: Start: 10-14-[address] Roby Perez Work Phone: [facility] Work Phone: Start: 10-07-2023 End: 10-07-[address] Jenn Perez Work Phone: [facility] Work Phone: Start: 10-07-2023 End: 10-07-[address] Jenn Perez Work Phone: [facility] Work Phone: Start: 09-30-2023 Non-patient / Non-visit Dr. Lorene Perez Work Phone: [facility] Work Phone: Start: 09-29-[address] Roby Perez Work Phone: [facility] Start: 09-29-2023 End: 09-29-[address] Jenn Perez Work Phone: [facility] Work Phone: Start: 09-23-2023 Non-patient / Non-visit Dr. Lorene Perez Work Phone: [facility] Work Phone: Start: 09-23-2023 End: 09-26-[address] Jenn Perez Work Phone: [facility] Work Phone: Start: 09-09-2023 Non-patient / Non-visit Dr. Lorene Perez Work Phone: [facility] Work Phone: Start: 09-08-2023 End: 09-08-2023 Office outpatient visit 40 minutes Gisel Wolf MD Work Phone: Division of Hematology & Oncology at [facility] Comment on above: Multiple myeloma, re mission status unspecified (Primary Dx); Chronic deep vein thrombosis (DVT) of proximal vein of both lower extremities Start: 09-01-[address] Roby Perez Work Phone: [facility] Start: 09-01-2023 End: 09-01-[address] Jenn Perez Work Phone: [facility] Work Phone: Start: 08-30-2023 End: 08-30-[address] Jenn Perez Work Phone: [facility] Work Phone: Start: 08-30-2023 End: 08-30-[address] Jenn Perez Work Phone: [facility] Work Phone: Start: 08-26-2023 Non-patient / Non-visit Dr. Lorene Perez Work Phone: [facility] Work Phone: Start: 08-26-2023 End: 08-26-[address] Jenn Perez Work Phone: [facility] Work Phone: Start: 08-26-2023 End: 08-26-[address] Jenn Perez [facility] Work Phone: Start: 08-13-2023 End: 08-13-[address] Jenn Perez Work Phone: [facility] Work Phone: Start: 08-13-2023 End: 08-13-[address] Jenn Perez Work Phone: [facility] Work Phone: Start: 08-12-2023 Non-patient / Non-visit Dr. Lorene Perez Work Phone: [facility] Work Phone: Start: 08-12-[address] Roby Perez [facility] Work Phone: Start: 08-06-2023 End: 08-06-[address] Jenn Perez Work Phone: [facility] Work Phone: Start: 08-06-2023 End: 08-06-[address] Jenn Perez Work Phone: [facility] Work Phone: Start: 08-06-[address] Jen Perez Work Phone: [facility] Work Phone: Start: 08-05-2023 Non-patient / Non-visit Dr. Lorene Perez Work Phone: [facility] Work Phone: Start: 08-04-[address] Roby Perez Work Phone: [facility] Start: 08-04-2023 End: 08-04-[address] Jenn Perez Work Phone: [facility] Work Phone: Start: 08-04-2023 End: 08-04-[address] Jenn Perez Work Phone: [facility] Work Phone: Start: 07-17-2023 End: 07-17-2023 Emergency department patient visit [employer] BUSINESS INTELLIGENCE CONSULTANT Anika Gay [facility] Work Phone: Start: 2023 Registered Recurring [employer] BUSINESS INTELLIGENCE CONSULTANT Anika Gay [facility] Start: 2023 End: 2023 Patient encounter procedure [employer] INTELLIGENCE CONSULTANT Anika Gay [facility] Work Phone: Start: 07-08-2023 Non-patient / Non-visit [employer] BUSINESS INTELLIGENCE CONSULTANT Anika rand [facility] Work Phone: Start: 07-07-2023 End: 07-07-2023 ambulatory [employer] BUSINESS INTELLIGENCE CONSULTANT Anika Rashid [facility] Work Phone: Start: 07-07-2023 End: 07-07-2023 Departed Referred [employer] BUSINESS INTELLIGENCE CONSULTANT Anika [facility] Work Phone: Start: 04-14-2023 End: 04-14-2023 Office outpatient visit 40 minutes Gisel Wlof MD Work Phone: Division of Hematology & Oncology at [facility] Comment on above: Multiple myeloma, re mission status unspecified (Primary Dx) Start: 04-05-2023 Unknown RENUKA ADDISON [facility] Start: 03-02-2023 End: 03-03-2023 [facility] Start: 02-12-2023 ambulatory EFRAÍN~[id number] MORGAN MORGAN EFRAÍN [facility] Start: 02-04-2023 Unknown EMANUEL GUERRA [facility] Start: 02-04-2023 End: 02-04-2023 Evaluation and management of inpatient Emanuel Guerra MD Work Phone: [facility] Start: 02-04-2023 End: 02-04-2023 Subsequent hospital visit by physician Emanuel Guerra MD Work Phone: [facility] Comment on above: Multiple myeloma not having achieved remission (CMS/HCC) Start: 02-03-2023 ambulatory RENUKA ADDISON [facility] Start: 02-03-2023 End: 02-03-2023 Evaluation and management of inpatient [facility] Start: 02-03-2023 End: 02-03-2023 Subsequent hospital visit by physician [facility] Comment on above: Multiple myeloma not having achieved remission (CMS/HCC) (Primary Dx) Start: 01-29-2023 ambulatory SALENA FLORES [facility] Start: 01-29-2023 End: 01-29-2023 Evaluation and management of inpatient [facility] Start: 01-29-2023 End: 01-29-2023 Subsequent hospital visit by physician McSa 2 [facility] Comment on above: Multiple myeloma not having achieved remission (CMS/HCC); 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); Cord compression (CMS/HCC) Start: 01-21-2023 End: 01-21-2023 Emergency department patient visit FRANCI LYNN [facility] Start: 01-19-2023 ambulatory RENUKA ADDISON [facility] Start: 01-19-2023 End: 01-19-2023 Evaluation and management of inpatient [facility] Start: 01-19-2023 End: 01-19-2023 Subsequent hospital visit by physician [facility] Comment on above: Arrived Start: 01-06-2023 End: 01-06-2023 Subsequent hospital visit by physician Gisel Wolf MD Work Phone: [facility] Comment on above: Arrived Start: 01-05-2023 Unknown EMANUEL GUERRA [facility] Start: 01-05-2023 End: 01-05-2023 Evaluation and management of inpatient Emanuel Guerra MD Work Phone: [facility] Start: 01-05-2023 End: 01-05-2023 Subsequent hospital visit by physician Emanuel Guerra MD Work Phone: [facility] Comment on above: Multiple myeloma not having achieved remission (CMS/HCC) (Primary Dx) Start: 01-04-2023 Unknown RENUKA ADDISON [facility] Start: 01-04-2023 End: 01-04-2023 Evaluation and management of inpatient [facility] Start: 01-04-2023 End: 01-04-2023 Subsequent hospital visit by physician [facility] Start: 01-01-2023 Unknown [facility]DISON [facility] Start: 12-31-2022 Unknown RENUKA ADDISON [facility] Start: 12-31-2022 End: 12-31-2022 Evaluation and management of inpatient [facility] Start: 12-31-2022 End: 12-31-2022 Subsequent hospital visit by physician [facility] Start: 12-29-2022 Telephone encounter Sydnee pink RN [facility] Start: 12-29-2022 Unknown EMANUEL GUERRA [facility] Start: 12-28-2022 Telephone encounter Sydnee pink RN [facility] Start: 12-25-2022 Telephone encounter Sydnee pink RN [facility] [facility] Start: 12-24-2022 Telephone encounter Sydnee pink RN [facility] Start: 12-21-2022 Telephone encounter Sydnee pink RN [facility] Start: 12-17-2022 End: 12-19-2022 Evaluation and management of inpatient ISH TAO JR [facility] Start: 12-17-2022 End: 12-19-2022 Emergency department patient visit Josef Judd MD Work Phone: [facility] Comment on above: Surgical site infect ion (Primary Dx) Start: 12-17-2022 End: 12-19-2022 Evaluation and management of inpatient Josef Judd MD Work Phone: [facility] Start: 12-11-2022 Telephone encounter Sydene pink RN [facility] Start: 12-02-2022 End: 12-09-2022 Evaluation and management of inpatient SALENA FLORES [facility] Start: 12-01-2022 End: 12-09-2022 Evaluation and management of inpatient Marcello Fisher DO Work Phone: [facility] Comment on above: Infected wound (Prim preston Dx); Cord compression (CMS/HCC); Weakness Start: 11-30-2022 Unknown EMANUEL GUERRA [facility] Start: 11-30-2022 End: 11-30-2022 Evaluation and management of inpatient Emanuel Guerra MD Work Phone: [facility] Start: 11-30-2022 End: 11-30-2022 Subsequent hospital visit by physician Emanuel Guerra MD Work Phone: [facility] Comment on above: Multiple myeloma not having achieved remission (CMS/HCC) (Primary Dx); 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) Start: 11-27-2022 End: 11-27-2022 ambulatory [facility] Start: 11-19-2022 Telephone encounter Michelle Eng PT [facility] [place] Start: 11-10-2022 End: 11-21-2022 Evaluation and management of inpatient ISH ISH S~[id number] DINH TAO JR [facility] Start: 11-10-2022 End: 11-21-2022 Evaluation and management of inpatient Rico Bhat MD Work Phone: [facility] Comment on above: Cord compression (CM S/HCC) (Primary Dx); Thoracic spine tumor Start: 11-10-2022 Critical care ill/in jured patient addl 30 min Rico Bhat MD Work Phone: [facility] Start: 11-05-2022 End: 11-05-2022 ambulatory SALENA FLORES [facility] Start: 10-09-2022 ambulatory CHERIDAN~[id number] [address] CHERIDAN [facility] Start: 10-09-2022 End: 10-09-2022 ambulatory SALENAGenoveva CHANEL SANDRA [facility] Start: 10-09-2022 End: 10-09-2022 Office outpatient visit 25 minutes Salenagenoveva Chanel Sandra [employer] Work Phone: [facility] [place] [employer] Comment on above: Left shoulder pain, unspecified chronicity (Primary Dx); Upper back pain; Vitamin D deficiency, unspecified Start: 10-09-2022 End: 10-09-2022 Patient encounter procedure Salenagenoveva Chanel Sandra [employer] Work Phone: [facility] [employer] Start: 10-05-2022 Refill Nati Rodarte MA [facility] [place] [employer] Comment on above: Vitamin D deficiency , unspecified Start: 10-05-2022 Refill Nati Rodarte MA [facility] [place] Start: 09-03-2022 Telephone encounter Salena Flores [employer] Work Phone: [facility] [employer] Start: 08-21-2022 End: 08-21-2022 ambulatory SALENA FLORES [facility] Start: 08-21-2022 End: 08-21-2022 Evaluation and management of inpatient McSa Xr 1 [facility] Start: 08-21-2022 End: 08-21-2022 Subsequent hospital visit by physician McSa 1 [facility] Comment on above: Left shoulder pain, unspecified chronicity Start: 08-21-2022 End: 08-21-2022 Office outpatient visit 15 minutes Salenagenoveva Chanel Sandra [employer]URE [employer] Work Phone: [facility] [place] [employer] Comment on above: Left shoulder pain, unspecified chronicity (Primary Dx) Start: 08-21-2022 End: 08-21-2022 Patient encounter procedure Salenagenoveva Chanel Sandra [employer] Work Phone: [facility] [employer] Start: 08-14-2022 ambulatory SALENA FLORES [facility] Start: 08-11-2022 Refill Salena arguelles [employer] Work Phone: [facility] [place] Comment on above: Chest discomfort Start: 08-11-2022 Refill Salena arguelles [employer] Work Phone: [facility] [place] Start: 08-05-2022 End: 08-05-2022 ambulatory SALENA FLORES [facility] Start: 08-05-2022 End: 08-05-2022 Clinical Support Sherry Ambrose LPN [facility] [place] Comment on above: COVID-19 vaccine adm inistered (Primary Dx) Start: 08-05-2022 End: 08-05-2022 Clinical Support Sherry Ambrose LPN [facility] [place] Start: 07-30-2022 End: 07-30-2022 ambulatory SALENA FLORES [facility] Start: 07-30-2022 End: 07-30-2022 Office outpatient visit 25 minutes Salena Flores [employer] Work Phone: [facility] [place] Comment on above: Mixed hyperlipidemia (Primary Dx); Essential hypertension; Hypothyroidism, unspecified type; Upper back pain on left side; Vitamin D deficiency Start: 07-30-2022 End: 07-30-2022 Patient encounter procedure Salena Flores [employer] Work Phone: [facility] [place] Start: 07-18-2022 Refill [facility] [place] Comment on above: Essential hypertensi on; Mixed hyperlipidemia Start: 07-18-2022 Refill Petros Molina Work Phone: [facility] [place] Start: 06-15-2022 ambulatory ARMAND JOSÉ [facility] Start: 06-15-2022 End: 06-15-2022 Office outpatient new 45 minutes Armand José MD Work Phone: [facility] Comment on above: Upper back pain Start: 06-15-2022 End: 06-15-2022 Patient encounter procedure Armand José MD Work Phone: [facility] Start: 05-29-2022 Telephone encounter Bashir reyna MD Work Phone: [facility] Start: 05-19-2022 Telephone encounter Salena Flores [employer] Work Phone: [facility] [place] Start: 05-13-2022 Telephone encounter Nati Rodarte MA [facility] [place] [employer] Comment on above: Referral Start: 05-07-2022 End: 05-07-2022 ambulatory SALENA FLORES [facility] Start: 05-07-2022 End: 05-07-2022 Evaluation and management of inpatient McSa Xr 2 [facility] Start: 05-07-2022 End: 05-07-2022 [facility] Comment on above: Upper back pain on l eft side Start: 05-07-2022 End: 05-07-2022 Office outpatient visit 15 minutes Salena Flores [employer] Work Phone: [facility] [place] Comment on above: Upper back pain on l eft side (Primary Dx) Start: 05-07-2022 End: 05-07-2022 Patient encounter procedure Salena Flores [employer] Work Phone: [facility] [place] Start: 04-29-2022 End: 04-29-2022 ambulatory SALENA FLORES [facility] Start: 04-29-2022 End: 04-29-2022 Office outpatient visit 15 minutes Salena Flores [employer] Work Phone: [facility] [place] Comment on above: Upper back pain (Sandra ollie Dx) Start: 04-29-2022 End: 04-29-2022 Patient encounter procedure Salena Flores [employer] Work Phone: [facility] [place] Start: 04-07-2022 End: 04-07-2022 ambulatory SALENAGenoveva CHANEL FLORES [facility] Start: 04-07-2022 End: 04-07-2022 Office outpatient visit 15 minutes Salena Flores [employer] Work Phone: [facility] [place] [employer] Comment on above: Strain of trapezius muscle, left, subsequent encounter (Primary Dx) Start: 04-07-2022 End: 04-07-2022 Patient encounter procedure Salena Flores [employer] Work Phone: [facility] [place] [employer] Start: 03-12-2022 Refill Petros Florida M D Work Phone: [facility] [place] [employer] Comment on above: Vitamin D deficiency , unspecified Start: 03-12-2022 Refill Petros Florida M D Work Phone: [facility] [place] [employer] Start: 02-16-2022 End: 02-16-2022 ambulatory SALENA DARÍO SANDRA [facility] Start: 02-16-2022 End: 02-16-2022 Office outpatient visit 25 minutes Salena Flores [employer] Work Phone: [facility] [place] [employer] Comment on above: Strain of left trape zius muscle, initial encounter (Primary Dx); Chest discomfort Start: 02-16-2022 End: 02-16-2022 Patient encounter procedure Salena Flores [employer] Work Phone: [facility] [place] [employer] Start: 01-29-2022 End: 01-29-2022 ambulatory SALENA DARÍO SANDRA [facility] Start: 01-29-2022 End: 01-29-2022 Office outpatient visit 25 minutes Salena Flores [employer] Work Phone: [facility] [place] [employer] [facility] Comment on above: Chest discomfort (Pr imary Dx); Hypothyroidism, unspecified type; Essential hypertension; Mixed hyperlipidemia Start: 01-29-2022 End: 01-29-2022 Patient encounter procedure Salena Flores [employer] [facility] Start: 10-08-2021 End: 10-08-2021 ambulatory Sherry Ambrose LPN [facility] Comment on above: COVID-19 vaccine adm inistered (Primary Dx) Start: 10-08-2021 End: 10-08-2021 Immunization Sherry Ambrose [employer] [facility] Start: 09-16-2021 End: 09-16-2021 Telephone encounter Petros Bartholomew MD Work Phone: [facility] Comment on above: medication refill Start: 08-20-2021 Refill Petros Molina Work Phone: [facility] Comment on above: Hypothyroidism, unsp ecified Start: 08-20-2021 End: 08-20-2021 Refill [facility]omew [facility] Start: 08-04-2021 Orders Only [facility] Start: 08-04-2021 End: 08-04-2021 Orders Only Petros Bartholomew MD [facility] Start: 07-31-2021 End: 07-31-2021 Office outpatient visit 25 minutes Petros Bartholomew MD [facility] Comment on above: Hypothyroidism, unsp ecified type (Primary Dx); Mixed hyperlipidemia; Essential hypertension; Vitamin D deficiency Start: 07-31-2021 End: 07-31-2021 Patient encounter procedure Petros Bartholomew MD [facility] Procedures Date Procedure Procedure Detail Performing Clinician Start: 02-01-2025 Albumin/Globulin ratio Dr. Blade Milner DO Work Phone: Start: 02-01-[address] Blade Milner DO Work Phone: Comment on above: Result confirmed on concentration. Start: 02-01-2025 Urine lambda light c shantel measurement Dr. Blade Milner DO Work Phone: Start: 01-31-2025 Computed tomography of abdomen and pelvis with intravenous contrast Dr. Blade Milner DO Work Phone: Start: 01-31-2025 Urnls dip stick/tabl et reagent auto microscopy Dr. Blade Milner DO Work Phone: Start: 01-31-[address] Blade Milner DO Work Phone: Start: 01-31-[address] Blade Milner DO Work Phone: Start: 01-04-2025 Plain X-ray abdomen Dr. Blade Milner DO Work Phone: Start: 01-04-2025 Albumin/Globulin ratio Dr. Blade Milner DO Work Phone: Start: 01-04-[address] Blade Milner DO Work Phone: Start: 01-04-[address] Blade iMlner DO Work Phone: Comment on above: Result confirmed on concentration. Start: 01-04-2025 Urine lambda light c shantel measurement Dr. Blade Milner DO Work Phone: Start: 12-07-2024 Total iron binding capacity measurement Dr. Blade Milner DO Work Phone: Start: 11-21-2024 X-ray of lumbosacral spine Dr. Blade Milner DO Work Phone: Start: 11-09-2024 Measurement of renal function Dr. Blade Milner DO Work Phone: Comment on above: GFR Calc Start: 10-20-[address] Blade Milner DO Work Phone: Start: 10-20-2024 Urnls dip stick/tabl et reagent auto microscopy Dr. Blade Milner DO Work Phone: Start: 10-12-2024 Assay of phosphorus inorganic Dr. Blade Milner DO Work Phone: Start: 10-02-[address] Blade Milner DO Work Phone: Start: 08-11-[address] Blade Milner DO Work Phone: Start: 07-11-[address] Blade Milner DO Work Phone: Start: 07-04-2024 Antibody screen Blade nolan Comment on above: Order Comment: S Performed By: #### B TS, [id number], [id number], [id number] ####[facility] [address] [place], [place], [id number] Start: 06-26-2024 Antibody screen Blade nolan Comment on above: Order Comment: [id number] Performed By: #### B [id number], [id number], [id number], [id number], BTS, L100.0100 ####[facility] [address] [place], [place], [id number] Start: 03-08-2024 CBC AND ELECTRONIC DIFF Gisel Wolf MD Work Phone: Start: 03-08-2024 Complete blood count with white cell differential, automated Gisel Wolf MD Work Phone: Start: 03-08-2024 Comprehensive metabo lic panel Gisel Wolf MD Work Phone: Start: 03-08-2024 IMMUNOGLOBULIN FREE CHAINS Gisel Wolf MD Work Phone: Start: 03-08-2024 SPE SERUM TOTAL PROTEIN Gisel Wolf MD Work Phone: Start: 12-30-[address] Iraida Balderas Work Phone: Start: 12-30-2023 Investigation of transfusion reaction Dr. Iraida Balderas Work Phone: Start: 12-30-2023 Microbial culture, routine Dr. Iraida Balderas Work Phone: Start: 12-09-[address] Iraida Balderas Work Phone: Start: 12-09-2023 Investigation of transfusion reaction Dr. Iraida Balderas Work Phone: Start: 12-09-2023 Microbial culture, routine Dr. Iraida Balderas Work Phone: Start: 09-08-2023 CBC AND ELECTRONIC DIFF Gisel Wolf MD Work Phone: Start: 09-08-2023 Complete blood count with white cell differential, automated Gisel Wolf MD Work Phone: Start: 09-08-2023 Comprehensive metabo lic panel Gisel Wolf MD Work Phone: Start: 09-08-2023 SPE SERUM TOTAL PROTEIN Gisel Wolf MD Work Phone: Start: 08-26-[address] Jenn Perez Work Phone: Start: 08-26-2023 Investigation of transfusion reaction Dr. Jenn Perez Work Phone: Start: 08-26-2023 Microbial culture, routine Dr. Jenn Perez Work Phone: Start: 08-04-2023 Radiologic examinati on, osseous survey, complete Dr. Jenn Perez Work Phone: Start: 04-14-2023 CBC AND ELECTRONIC DIFF Gisel Wolf MD Work Phone: Start: 04-14-2023 Complete blood count with white cell differential, automated Gisel Wolf MD Work Phone: Start: 04-14-2023 Comprehensive metabo lic panel Gisel Wolf MD Work Phone: Start: 04-14-2023 SPE SERUM TOTAL PROTEIN Gisel Wolf MD Work Phone: Start: 03-02-2023 Antibody screen RENUKA SE GAL Comment on above: Performed By: #### 3 [id number] ####[facility] [address] [place] [address] Start: 01-29-2023 Diagnostic bone vineet ow biopsies & aspirations Nia Gaines MD Work Phone: Start: 01-29-2023 Blood count platelet automated Nia Gaines MD Work Phone: Start: 01-05-2023 RAD ONC ARIA SESSION SUMMARY Physician Radiation Oncology Work Phone: Start: 01-04-2023 RAD ONC ARIA SESSION SUMMARY Physician Radiation Oncology Work Phone: Start: 12-31-2022 RAD ONC ARIA SESSION SUMMARY Physician Radiation Oncology Work Phone: Start: 12-18-2022 Basic metabolic pane l calcium total Armand Jay DO Work Phone: Start: 12-18-2022 CBC W Auto Different ial panel - Blood Armand Jay DO Work Phone: Start: 12-17-2022 Sars-cov-2 detection by dna/rna Josef Judd MD Work Phone: Start: 12-17-2022 Basic metabolic pane l calcium total Josef Judd MD Work Phone: Start: 12-17-2022 CBC W Auto Different ial panel - Blood Josef Judd MD Work Phone: Start: 12-09-2022 Radiologic exam abdo men 1 view Marta Mason MD Work Phone: Start: 12-09-2022 Basic metabolic pane l calcium total Blade [employer] DO Work Phone: Start: 12-08-2022 Basic metabolic pane l calcium total Blade [employer] DO Work Phone: Start: 12-07-2022 Basic metabolic pane l calcium total Blade [employer] DO Work Phone: Start: 12-06-2022 Basic metabolic pane l calcium total Blade [employer] DO Work Phone: Start: 12-06-2022 CBC W Auto Different ial panel - Blood Liliana Esteban [employer]URE [employer] Work Phone: Start: 12-06-2022 MANUAL DIFFERENTIAL - SYSMEX WAM Liliana Esteban [employer]URE [employer]ER Work Phone: Start: 12-05-2022 Blood count complete automated Liliana Esteban [employer]URE [employer]ER Work Phone: Start: 12-05-2022 Basic metabolic pane l calcium total Blade [employer] DO Work Phone: Start: 12-04-2022 Basic metabolic pane l calcium total Blade [employer] DO Work Phone: Start: 12-03-2022 Basic metabolic pane l calcium total Blade [employer] DO Work Phone: Start: 12-02-2022 Radiological guidanc e prq drg w/plmt cath rs&i Louie Chakraborty MD Work Phone: Start: 12-02-2022 End: 12-02-2022 Culture bacterial any source anaerobic iso&id Jaymie GIL Work Phone: Start: 12-02-2022 Prothrombin time Jaymie GIL Work Phone: Start: 12-02-2022 End: 12-02-2022 Mri spinal canal cervical w/o & w/contr matrl Michelle GIL Work Phone: Start: 12-02-2022 Sars-cov-2 detection by dna/rna Marcello Fisher DO Work Phone: Start: 12-01-2022 Ct cervical spine w/contrast material Marcello Phillip DO Work Phone: Start: 12-01-2022 End: 12-01-2022 Basic metabolic panel calcium total Marcello Phillip DO Work Phone: Start: 12-01-2022 C-reactive protein Megh an [place] PA Work Phone: Start: 12-01-2022 CBC W Auto Different ial panel - Blood Marcello Fisher DO Work Phone: Start: 12-01-2022 Culture bacterial bl ood aerobic w/id isolates Michelle Rodriguez PA Work Phone: Start: 12-01-2022 EXTRA TUBES Marcello Maria Isabel r DO Work Phone: Start: 12-01-2022 MANUAL DIFFERENTIAL - SYSMEX WAM Marcello Fisher DO Work Phone: Start: 12-01-2022 SST - GOLD Marcello Maria Isabel r DO Work Phone: Start: 11-30-2022 Adult depression scr eening assessment Emanuel Guerra MD Work Phone: Start: 11-16-2022 Basic metabolic pane l calcium total Tomás Cortez MD Work Phone: Start: 11-15-2022 Basic metabolic pane l calcium total Tomás Cortez MD Work Phone: Start: 11-14-2022 Radiologic exam abdo men 1 view Louie Montiel DO Work Phone: Start: 11-12-2022 KAPPA-LAMBDA QUANTIT ATIVE FREE LIGHT CHAINS Renuka Addison MD Work Phone: Start: 11-11-2022 Ct thoracic spine w/ o contrast material Natalie GIL Work Phone: Start: 11-11-2022 POCT GLUCOSE BLOOD Anim sunshine Snyder MD Work Phone: Start: 11-11-2022 Radex spine thoracic minimum 4 views Ish Tao MD Work Phone: Start: 11-11-2022 XR FLUORO UP TO 1 HO UR (STATISTICS)(NO REPORT) Ish Tao MD Work Phone: Start: 11-11-2022 Level v surg patholo gy gross&microscopic exam Ish Tao MD Work Phone: Start: 11-11-2022 End: 11-11-2022 FUSION LUMBAR POSTERIOR IMAGE GUIDED Ish Tao MD Work Phone: Start: 11-11-2022 Platelet aggregation in vitro each agent Rich Castillo [employer]URE [employer] Work Phone: Start: 11-11-2022 Immunofixj electroph oresis other fluids Renuka Addison MD Work Phone: Start: 11-11-2022 CBC W Auto Different ial panel - Blood Fahad Mccoy MD Work Phone: Start: 11-11-2022 Comprehensive metabo lic panel Fahad Mccoy MD Work Phone: Start: 11-10-2022 Antibody screen RENUKA WALKER Comment on above: Performed By: #### 3 [id number] ####[facility] [address] [place] [address] Start: 11-10-2022 Assay of gammaglobul in iga igd igg igm each Renuka Addison MD Work Phone: Start: 11-10-2022 KAPPA-LAMBDA QUANTIT ATIVE FREE LIGHT CHAINS Renuka Addison MD Work Phone: Start: 11-10-2022 Prothrombin time Rich Castillo [employer]URE [employer] Work Phone: Start: 11-10-2022 Urnls dip stick/tabl et reagent auto microscopy Fahad Mccoy MD Work Phone: Start: 11-10-2022 EXTRA TUBES Rico dove MD Work Phone: Start: 11-10-2022 DAN URINE CULTURE TUBE Rico Bhat MD Work Phone: Start: 11-10-2022 YELLOW URINE NO ADDITIVE Rico Bhat MD Work Phone: Start: 11-10-2022 Ct abdomen & pelvis w/contrast material Andrey Perkins MD Work Phone: Start: 02-14-2023 Ct thorax w/contrast material Andrey Perkins MD Work Phone: Start: 11-10-2022 End: 11-10-2022 Basic metabolic panel calcium total Rico Bhat MD Work Phone: Start: 11-10-2022 Sars-cov-2 detection by dna/rna Rico Bhat MD Work Phone: Start: 11-10-2022 End: 11-10-2022 Mri spinal canal cervical w/o & w/contr matrl Rico Bhat MD Work Phone: Start: 11-10-2022 End: 11-10-2022 C-reactive protein Rico Bhat MD Work Phone: Start: 11-10-2022 CBC W Auto Different ial panel - Blood Rico Bhat MD Work Phone: Start: 08-21-2022 Radex shoulder compl ete minimum 2 views Salena Flores [employer] Work Phone: Start: 08-14-2022 Lipid 1996 panel - S raudel or Plasma Us 2 Work Phone: Start: 05-07-2022 Radex spine cervical 4 or 5 views Salena Flores [employer] Work Phone: Start: 01-29-2022 Ecg routine ecg w/le ast 12 lds w/i&r Salena Flores [employer] Work Phone: Start: 07-31-2021 Adult depression scr eening assessment Petros Bartholomew MD Work Phone: Start: 01-22-2021 Adult depression scr eening assessment Sherry Ambrose LPN History of radiation therapy History of radiation therapy Dr. Jenn Perez Work Phone: History of radiation therapy History of radiation therapy Dr. Burt Kaba MD History of radiation therapy History of radiation therapy Dr. Oren Olivera MD Plan of Treatment Date Care Activity Detail Author Start: 2032 RSV Vaccine (1 - 1-dose 75+ series) RSV Vaccine (1 - 1-dose 75+ series) [facility] Start: 09-06-2027 Diabetes Screening Diabetes Screening [facility] Start: 08-14-2027 Lipid panel [facility] Start: 07-31-2026 Lipid panel Cholesterol Screening (Lipid Panel) [facility] Start: 11-30-2025 End: 11-30-2025 Patient encounter procedure 11/30/2025 10:00 AM EST Office Visit [facility] [address] [place] [address] Ric Souza MD [address] [place] [address] 12 months US prior(PT is scheduling US) [facility] Comment on above: 12 months US prior(PT is scheduling US) Start: 05-28-2025 Influenza vaccination Influenza Vaccine (Season Ended) [facility] Start: 03-12-2025 End: 03-12-2025 ambulatory 03/12/2025 9:45 AM EDT OT/PT/Speech Visit [facility] [employer] [address] [address] Leticia Lucas, OT/L Driving rehabilitation [facility] Occupation [facility] Comment on above: Driving rehabilitation Start: 01-31-2025 End: 02-01-2025 [facility] Start: 01-31-2025 Bacteria identified in Urine by Culture Urine Culture [facility] Start: 01-04-2025 Serum immunofixation [facility] Start: 01-04-2025 [facility] Start: 12-07-2024 Serum immunofixation [facility] Start: 12-07-2024 [facility] Start: 11-28-2024 End: 11-28-2024 Nursing evaluation of patient and report 11/28/2024 3:00 PM EST Nurse Visit [facility] [address] [place] [address] Christin Nurse Urol [address] [place] [address] Souza- teach PT how to CIC [facility] Comment on above: seeing Dr. Souza- teach PT how to CIC Start: 11-28-2024 End: 11-28-2024 Patient encounter procedure 11/28/2024 2:30 PM EST Office Visit [facility] [address] [place] [id number] Ric Souza MD [address] [place] [address] Cysto US prior [facility] Comment on above: Cysto US prior Start: 11-10-2024 End: 11-10-2024 Patient encounter procedure 11/10/2024 10:00 AM EST Office Visit [facility] [address] [place], [place] [address] [place] [address] [place] [phone] VANEGAS CARE/REMOVAL OF VANEGAS AFTER 2 YEARS OF USE [facility] Comment on above: VANEGAS CARE/REMOVAL OF VANEGAS AFTER 2 YEAR S OF USE Start: 10-02-2024 [facility] Start: 09-27-2024 Advance Directive Discussion Advance Directive Discussion [facility] Start: 09-06-2024 End: 09-06-2024 Patient encounter procedure 09/06/2024 10:40 AM EST Office Visit Division of Hematology & Oncology at [facility] [address] [place] [phone] Gisel Wolf MD [address] 5th [place] [address] Division of Hematology & Oncology at [facility] Start: 08-13-2024 Patient discharge [facility] Start: 08-11-2024 Development of care plan [facility] Start: 08-08-2024 Referral to service [facility] Start: 08-07-2024 Developing a treatment plan [facility] Start: 08-07-2024 Development of care plan [facility] Start: 08-02-2024 [facility] Start: 08-02-2024 Application of elastic bandage [facility] Start: 07-24-2024 Wound care [facility] Start: 07-14-2024 Maintenance of drainage tube [facility] Start: 07-11-2024 Development of care plan [facility] Start: 07-11-2024 Developing a treatment plan [facility] Start: 07-11-2024 [facility] Start: 07-10-2024 Consultation [facility] Start: 07-10-2024 Contact precautions [facility] Start: 07-10-2024 Following clinical pathway protocol [facility] Start: 07-10-2024 Venous catheter care management [facility] Start: 07-10-2024 Consultation for treatment [facility] Start: 07-10-2024 Admission procedure [facility] Start: 07-10-2024 Introduction of urinary catheter [facility] Start: 07-10-2024 Measuring intake and output [facility] Start: 07-10-2024 Patient referral to dietitian [facility] Start: 07-10-2024 Referral to occupational therapist [facility] Start: 07-10-2024 Referral to service [facility] Start: 07-10-2024 Vital signs measurements [facility] Start: 07-10-2024 [facility] Start: 07-10-2024 [facility] Start: 06-21-2024 End: 06-21-2024 Patient encounter procedure 06/21/2024 2:30 PM EDT Appointment [facility] [address] [place] [address] Mickey Munoz DO [address], [place] [phone] [facility] Lupe Regan Start: 06-14-2024 End: 06-14-2024 Patient encounter procedure 06/14/2024 10:30 AM EDT Appointment [facility] [address] [place] [address] Mickey Munoz DO [address], [place] [id number] [facility] Start: 06-05-2024 End: 06-05-2024 Patient encounter procedure 06/05/2024 10:30 AM EDT [facility] [address] [place] [address] Leanna Osborne, PUBLICITY EXPERT - LOCK TENDER [address] [place] [address] [place] [address] [facility] Start: 05-28-2024 Covid-19 Vaccine ( season) Covid-19 Vaccine ( season) [facility] Start: 05-28-2024 COVID-19 Vaccine ( season) COVID-19 Vaccine ( season) [facility] Start: 05-28-2024 Covid-19 Vaccine ( season) Covid-19 Vaccine ( season) [facility] Start: 05-28-2024 Influenza vaccination Influenza Vaccine (#1) [facility] Start: 05-24-2024 End: 05-24-2024 Patient encounter procedure 05/24/2024 1:30 PM EDT Appointment [facility] [address] [place] [address] Mickey Munoz, DO [address], [place] [phone] [facility] Start: 05-17-2024 End: 05-17-2024 Patient encounter procedure 05/17/2024 12:45 PM EDT Appointment [facility] [address] [place] [address] Mickey Munoz DO [address], [place] [phone] [facility] Start: 05-08-2024 End: 05-08-2024 Patient encounter procedure 05/08/2024 10:30 AM EDT [facility]ment [facility] [address] [place] [address] Leanna Osborne, PUBLICITY EXPERT - LOCK TENDER [address] [facility] [place] [address] [place] [address] [facility] Start: 05-03-2024 End: 05-03-2024 Patient encounter procedure 05/03/2024 2:00 PM EDT [facility] [address] [place] [address] Mickey Munoz, DO [address], [place] [phone] [facility] Start: 04-26-2024 End: 04-26-2024 Patient encounter procedure 04/26/2024 3:15 PM EDT Appointment [facility] [address] [place] [address] Mickey Munoz, DO [address], [place] [phone] [facility] Start: 04-19-2024 End: 04-19-2024 Patient encounter procedure 04/19/2024 12:45 PM EDT Appointment [facility] [address] [place] [address] Mickey Munoz, DO [address], [place] [phone] [facility] Start: 04-11-2024 End: 04-11-2024 Patient encounter procedure 04/11/2024 2:30 PM EDT [facility]ment [facility] [address] [place] [address] Alex Barrientos DPM [address] [place] [address] [facility] Start: 04-07-2024 End: 04-07-2024 Patient encounter procedure 04/07/2024 10:45 AM EDT [facility]ment [facility] [address] [place] [address] [facility] Start: 04-05-2024 End: 04-05-2024 Patient encounter procedure 04/05/2024 1:30 PM EDT Appointment [facility] [address] [place] [address] Mickey Munoz, DO [address] [place] [address] [facility] Start: 03-29-2024 End: 03-29-2024 Patient encounter procedure 03/29/2024 1:30 PM EDT Appointment [facility] [address] [place] [address] Mickey Munoz, DO [address], [place] [phone] [facility] Start: 03-08-2024 End: 03-08-2024 Patient encounter procedure 03/08/2024 11:00 AM EDT Office Visit Division of Hematology & Oncology at [facility] [address] [place] [phone] Gisel Wolf MD [address] [place] [address] Division of Hematology & Oncology at [facility] Start: 03-03-2024 End: 04-02-2024 MONOCLONAL PROT IMMUNO, SERUM MONOCLONAL PROT IMMUNO, SERUM Lab Routine Multiple myeloma, remission status unspecified Expected: 03/03/2024 (Approximate), Expires: 04/02/2024 [facility] Comment on above: Expected: 03/03/2024 (Approximate), Expi res: 04/02/2024 Start: 12-22-2023 Patient referral [facility] Work Phone: Start: 12-20-2023 Falls Risk Assessment Falls Risk Assessment [facility] Start: 12-19-2023 Hypertension/CHF/CAD Annual BMP Blood Test Hypertension/CHF/CAD Annual BMP Blood Test [facility] Start: 12-10-2023 Falls Risk Assessment Falls Risk Assessment [facility] Start: 12-10-2023 Hypertension/CHF/CAD Annual BMP Blood Test Hypertension/CHF/CAD Annual BMP Blood Test [facility] Start: 12-09-2023 Anaerobic microbial culture Anaerobic Culture [facility] Start: 12-05-2023 Hypertension/CHF/CAD Annual BMP Blood Test Hypertension/CHF/CAD Annual BMP Blood Test [facility] Start: 12-04-2023 Falls Risk Assessment Falls Risk Assessment [facility] Start: 12-03-2023 Social Influencers of Health Screening Social Influencers of Health Screening [facility] Start: 12-01-2023 Adolescent depression screening assessment Depression Screening [facility] Start: 11-24-2023 Centerview and lambda light chains [facility] Start: 11-24-2023 Serum immunofixation [facility] Start: 11-21-2023 Falls Risk Assessment Falls Risk Assessment [facility] Start: 11-19-2023 Falls Risk Assessment Falls Risk Assessment [facility] Start: 11-16-2023 Hypertension/CHF/CAD Annual BMP Blood Test Hypertension/CHF/CAD Annual BMP Blood Test [facility] Start: 10-27-2023 Centerview and lambda light chains [facility] Start: 10-27-2023 Serum immunofixation [facility] Start: 09-29-2023 Patient referral [facility] Work Phone: Start: 09-08-2023 End: 09-08-2023 Patient encounter procedure 09/08/2023 11:00 AM EST Office Visit Division of Hematology & Oncology at [facility] [address] [place] [address] Gisel Wolf MD [address] [place] [address] Division of Hematology & Oncology at [facility] Start: 09-07-2023 COVID-19 Vaccine () COVID-19 Vaccine () [facility] Start: 09-02-2023 End: 10-02-2023 IMMUNOGLOBULIN FREE CHAINS IMMUNOGLOBULIN FREE CHAINS Lab Routine Multiple myeloma, remission status unspecified Expected: 09/02/2023 (Approximate), Expires: 10/02/2023 [facility] Comment on above: Expected: 09/02/2023 (Approximate), Expi res: 10/02/2023 Start: 09-02-2023 End: 10-02-2023 MONOCLONAL PROT IMMUNO, SERUM MONOCLONAL PROT IMMUNO, SERUM Lab Routine Multiple myeloma, remission status unspecified Expected: 09/02/2023 (Approximate), Expires: 10/02/2023 [facility] Comment on above: Expected: 09/02/2023 (Approximate), Expi res: 10/02/2023 Start: 08-26-2023 Anaerobic Culture Anaerobic Culture [facility] Start: 08-26-2023 Microscopic observation [Identifier] in Unspecified specimen by Gram stain Gram Stain [facility] Start: 08-26-2023 Wound Culture Wound Culture [facility] Start: 08-14-2023 Hypertension/CHF/CAD Annual BMP Blood Test Hypertension/CHF/CAD Annual BMP Blood Test [facility] Start: 08-04-2023 Venous catheter care management [facility] Start: 07-17-2023 [facility] Start: 05-28-2023 Influenza vaccination [facility] Start: 04-14-2023 End: 04-14-2023 Patient encounter procedure 04/14/2023 Office Visit Hematology Gisel Wolf MD [address] [place] [address] Division of Hematology & Oncology Start: 04-09-2023 End: 05-09-2023 IMMUNOGLOBULIN FREE CHAINS IMMUNOGLOBULIN FREE CHAINS Lab Routine Multiple myeloma, remission status unspecified Expected: 04/09/2023 (Approximate), Expires: 05/09/2023 [facility] Comment on above: Expected: 04/09/2023 (Approximate), Expi res: 05/09/2023 Start: 04-09-2023 End: 05-09-2023 MONOCLONAL PROT IMMUNO, SERUM MONOCLONAL PROT IMMUNO, SERUM Lab Routine Multiple myeloma, remission status unspecified Expected: 04/09/2023 (Approximate), Expires: 05/09/2023 [facility] Comment on above: Expected: 04/09/2023 (Approximate), Expi res: 05/09/2023 Start: 02-04-2023 End: 02-04-2023 Patient encounter procedure 02/04/2023 Appointment Radiation Oncology Emanuel Guerra MD [address] [facility] [address] [place] [address] [phone] [facility] Start: 02-03-2023 End: 02-04-2024 IR Tunneled CVAD Cmplt Replacement w Subcutaneous Port IR Tunneled CVAD Cmplt Replacement w Subcutaneous Port Imaging Routine Multiple myeloma not having achieved remission (CMS/HCC) Expected: 02/03/2023, Expires: 02/04/2024 [email or web address] Phone: Comment on above: Expected: 02/03/2023, Expires: Start: 01-28-2023 End: 01-28-2023 Patient encounter procedure 01/28/2023 Office Visit Family Medicine Salena Flores, APERTURE MASK ETCHER [address] [address] [facility] Start: 01-05-2023 End: 01-05-2023 Patient encounter procedure 01/05/2023 Appointment Radiation Oncology Emanuel Guerra MD [address] [phone] [facility] Start: 01-04-2023 End: 01-04-2023 Patient encounter procedure [facility] Start: 01-01-2023 End: 01-01-2023 Patient encounter procedure [facility] Start: 12-31-2022 End: 12-31-2022 Patient encounter procedure 12/31/2022 Appointment Radiation Oncology [facility] Start: 12-30-2022 End: 12-30-2022 Patient encounter procedure 12/30/2022 Appointment Radiation [facility]cology [facility] Start: 12-29-2022 End: 12-29-2022 Patient encounter procedure [facility] Start: 12-28-2022 End: 12-28-2022 Patient encounter procedure 12/28/2022 Appointment Radiation Oncology Ric Rodriguez MD [address] [facility] [address] [place] [address] [phone] [facility] Start: 12-25-2022 End: 12-25-2022 Patient encounter procedure [facility] Start: 12-24-2022 End: 12-24-2022 Patient encounter procedure 12/24/2022 Appointment Radiation Oncology [facility] Start: 12-23-2022 End: 12-23-2022 Patient encounter procedure 12/23/2022 Appointment Radiation [facility]cology [facility] Start: 12-22-2022 End: 12-22-2022 Patient encounter procedure [facility] Start: 12-21-2022 End: 12-21-2022 Patient encounter procedure [facility] Start: 12-18-2022 End: 12-18-2022 Patient encounter procedure 12/18/2022 Appointment Radiation Oncology Emanuel Guerra MD [address] [phone] Nahid Olson [facility] Start: 12-17-2022 End: 12-17-2022 Patient encounter procedure 12/17/2022 Appointment Radiation [facility] Start: 12-16-2022 End: 12-16-2022 Patient encounter procedure 12/16/2022 Appointment Rad[facility] Start: 12-15-2022 End: 12-15-2022 Patient encounter procedure 12/15/2022 Appointment Radiation Oncology Emanuel Guerra MD [address] [facility] [address] [place] [address] [phone] [facility] Start: 12-14-2022 End: 12-14-2022 Patient encounter procedure 12/14/2022 Appointment Radiation Oncology Emanuel Guerra MD [address] [facility] [address] [place] [address] [phone] [facility] Start: 12-11-2022 End: 12-11-2022 Patient encounter procedure 12/11/2022 Appointment Radiation Oncology Emanuel Guerra MD [address] [facility] [address] [place] [address] [phone] [facility] Start: 12-10-2022 End: 12-10-2022 Patient encounter procedure 12/10/2022 Appointment Radiation [facility]cology [facility] Start: 12-09-2022 End: 12-09-2022 Patient encounter procedure 12/09/2022 Appointment Radiation [facility]cology [facility] Start: 12-08-2022 End: 12-08-2022 Patient encounter procedure 12/08/2022 Appointment Radiation Oncology Emanuel Guerra MD [address] [facility] [address] [place] [address] [phone] [facility] Start: 12-07-2022 End: 12-07-2022 Patient encounter procedure 12/07/2022 Appointment Radiation Oncology Emanuel Guerra MD [address] [facility] [address] [place] [address] [phone] [facility] Start: 11-30-2022 End: 06-02-2023 Rad Onc Treatment Planning Simulation Rad Onc Treatment Planning Simulation Radiation Oncology Routine Multiple myeloma not having achieved remission (CMS/HCC) Expected: 11/30/2022 (Approximate), Expires: 06/02/2023 [employer] Work Phone: Comment on above: Expected: 11/30/2022 (Approximate), Expi res: 06/02/2023 Start: 11-30-2022 End: 11-30-2022 Patient encounter procedure 11/30/2022 Appointment Radiation Oncology Emanuel Guerra MD [address] [facility] [address] [place] [address] [facility] Start: 09-30-2022 COVID-19 Vaccine (4 - Booster) COVID-19 Vaccine (4 - Booster) [facility] Start: 09-02-2022 COVID-19 VACCINE (2 - Moderna risk series) COVID-19 VACCINE (2 - Moderna risk series) [facility] Start: 09-02-2022 COVID-19 VACCINE (3 - Mixed Product risk series) COVID-19 VACCINE (3 - Mixed Product risk series) [facility] Start: 08-05-2022 End: 08-05-2022 Clinical Support 08/05/2022 Clinical Support Family Medicine [facility] Start: 07-31-2022 Adolescent depression screening assessment Depression Screening [facility] Start: 07-31-2022 Depression Screening Depression Screening [facility] Start: 07-31-2022 Hypertension/CHF/CAD Annual BMP Blood Test Hypertension/CHF/CAD Annual BMP Blood Test [facility] Start: 07-30-2022 End: 07-30-2022 Patient encounter procedure 07/30/2022 Office Visit Family Medicine Salena Flores NP [address] [phone] [facility] Start: 2022 Abdominal aortic aneurysm screening ABDOMINAL AORTIC ANEURYSM HIGH RISK SCREEN [facility] Start: 2022 Falls Risk Assessment Falls Risk Assessment [facility] Start: 2022 Pneumococcal Vaccine: 65+ Years (1 - PCV) Pneumococcal Vaccine: 65+ Years (1 - PCV) [facility] Start: 06-15-2022 End: 06-15-2022 Patient encounter procedure 06/15/2022 Office Visit Neurosurgery Armand José MD [address] [place] [address] [phone] [facility] Start: 05-28-2022 Influenza vaccination [facility] Start: 02-05-2022 COVID-19 Vaccine (4 - Booster) COVID-19 Vaccine (4 - Booster) [facility] Start: 01-29-2022 End: 01-29-2022 Patient encounter procedure 01/29/2022 Office Visit Family Medicine Salena Flores, TPI [address] [phone] [facility] Start: 01-22-2022 Adolescent depression screening assessment Depression Screening [facility] Start: 12-03-2021 COVID-19 Vaccine (4 - Booster) COVID-19 Vaccine (4 - Booster) [facility] Start: 10-08-2021 End: 10-08-2021 ambulatory 10/08/2021 Immunization Family Medicine [facility] Start: 09-05-2021 COVID-19 Vaccine (3 - Booster) COVID-19 Vaccine (3 - Booster) [facility] Start: 05-28-2021 Influenza vaccination Influenza Vaccine (#1) [facility] Start: 04-03-2021 COVID-19 Vaccine (2 - Moderna 3-dose booster series) COVID-19 Vaccine (2 - Moderna 3-dose booster series) [facility] Start: 10-12-2019 Hepatitis C screening Hepatitis C Screening [facility] Start: 10-12-2019 HIV screening HIV Screening [facility] Start: 10-12-2019 Hypertension/CHF/CAD Annual BMP Blood Test Hypertension/CHF/CAD Annual BMP Blood Test [facility] Start: 10-12-2019 Lipid panel Cholesterol Screening (Lipid Panel) [facility] Start: 10-12-2019 Screening for malignant neoplasm of colon Colorectal Cancer Screening: Colonoscopy [facility] Start: 10-12-2019 Social Influencers of Health Screening Social Influencers of Health Screening [facility] Start: 2017 RSV Immunization aged 60 or older (1 - 1-dose 60+ series) RSV Immunization aged 60 or older (1 - 1-dose 60+ series) [facility] Start: 2012 Prostate specific antigen measurement Prostate Cancer Screening Discussion [facility] Start: 2007 Pneumococcal Vaccine: 50+ (1 of 1 - PCV) Pneumococcal Vaccine: 50+ (1 of 1 - PCV) [facility] Start: 2007 Prostate specific antigen measurement PROSTATE CANCER SCREENING DISCUSSION [facility] Start: 2007 Shingrix Vaccine (1 of 2) Shingrix Vaccine (1 of 2) [facility] Start: 2007 Zoster Vaccines (1 of 2) Zoster Vaccines (1 of 2) [facility] Start: 2002 Diabetes Screening Diabetes Screening [facility] Start: 2002 Prostate specific antigen measurement Prostate Cancer Screening Discussion [facility] Start: 2002 Screening for malignant neoplasm of colon [facility] Start: 1997 Lipid panel LIPID SCREENING [facility] Start: 1992 Lipid panel Lipid Screening [facility] Start: 1976 DTaP,Tdap,and Td Vaccines (1 - Tdap) DTaP,Tdap,and Td Vaccines (1 - Tdap) [facility] Start: 1976 DTaP/Tdap/Td Vaccines (1 - Tdap) DTaP/Tdap/Td Vaccines (1 - Tdap) [facility] Start: 1976 Third diphtheria, tetanus and acellular pertussis (DTaP) vaccination TDAP (ADULT) [facility] Start: 1976 Urine microalbumin profile DTaP,Tdap,Td Vaccine (1 - Tdap) [facility] Start: 1976 Zoster vaccine hzv live for subcutaneous use ZOSTER (SHINGLES) VACCINE (1 of 2) [facility] Start: 1976 Zoster Vaccines (1 of 2) Zoster Vaccines (1 of 2) [facility] Start: 1975 Anxiety Screening Anxiety Screening [facility] Start: 1975 Depression Screening Depression Screening [facility] Start: 1975 Diabetes mellitus screening Diabetes Screening [facility] Start: 1975 Hepatitis C screening Hepatitis C Screening [facility] Start: 1969 Depression Screening Depression Screening [facility] Start: 1963 Pneumococcal vaccination [facility] Start: 1963 Pneumococcal Vaccine: 65+ Years (1 - PCV) Pneumococcal Vaccine: 65+ Years (1 - PCV) [facility] Start: 1963 Pneumococcal Vaccine: 65+ Years (1 of 2 - PCV) Pneumococcal Vaccine: 65+ Years (1 of 2 - PCV) [facility] Start: 1963 Pneumococcal Vaccine: Pediatrics (0 to 5 Years) and At-Risk Patients (6 to 64 Years) (1 - PCV) Pneumococcal Vaccine: Pediatrics (0 to 5 Years) and At-Risk Patients (6 to 64 Years) (1 - PCV) [facility] Start: 01-10-1958 COVID-19 VACCINE (#1) COVID-19 VACCINE (#1) [facility] Start: 1957 Hepatitis B Vaccines (1 of 3 - 3-dose series) Hepatitis B Vaccines (1 of 3 - 3-dose series) [facility] Start: 1957 Hepatitis C screening HEPATITIS C VIRUS SCREENING [facility] Start: 1957 Lipid panel Lipid Panel [facility] Start: 1957 Screening for malignant neoplasm of colon [facility] Start: 1957 Tetanus vaccination TETANUS [facility] Start: 1957 Thyroid stimulating hormone measurement [facility] 25-hydroxyvitamin D3 [Mass/volume] in Serum or Plasma Vitamin D 25 hydroxy Lab Routine Vitamin D deficiency 07/31/2021 8:32 AM EDT [facility] End: 07-30-2023 25-hydroxyvitamin D3 [Mass/volume] in Serum or Plasma Vitamin D 25 hydroxy Lab Routine Vitamin D deficiency 1 Occurrences starting 07/30/2022 until 07/30/2023 [facility] Comment on above: 1 Occurrences starting 07/30/2022 until 07/30/2023 Alanine aminotransfe rase [Enzymatic activity/volume] in Serum or Plasma [facility] Albumin [Mass/volume ] in Serum or Plasma [facility] Albumin [Moles/volum e] in Serum or Plasma [facility] Albumin [Moles/volum e] in Serum or Plasma [facility] Albumin [Moles/volum e] in Serum or Plasma [facility] Albumin [Moles/volum e] in Serum or Plasma [facility] Albumin/Globulin ratio [facility] Albumin/Globulin ratio [facility] Albumin/Globulin ratio [facility] Albumin/Globulin ratio [facility] Alkaline phosphatase [Enzymatic activity/volume] in Serum or Plasma [facility] Anion gap in Serum o r Plasma [facility] Bacteria identified in Unspecified specimen by Anaerobe culture [facility] Bilirubin, total measurement [facility] BUN/Creatinine ratio [facility] Calcium [Mass/volume ] in Serum or Plasma [facility] Carbon dioxide, tota l [Moles/volume] in Central venous blood [facility] CBC W Auto Different ial panel - Blood [facility] Chromosome analysis panel by FISH FISH, cytogenetics Lab Routine 01/29/2023 11:42 AM EDT [facility] Comprehensive metabo lic 1999 panel - Serum or Plasma Comprehensive metabolic panel Lab Routine Mixed hyperlipidemia 07/31/2021 8:32 AM EDT [facility] End: 07-30-2023 Comprehensive metabolic 1999 panel - Serum or Plasma Comprehensive metabolic panel Lab Routine Essential hypertension 1 Occurrences starting 07/30/2022 until 07/30/2023 [facility] Comment on above: 1 Occurrences starting 07/30/2022 until 07/30/2023 Creatinine [Mass/vol ume] in Serum or Plasma [facility] Cystourethroscopy CYSTO.PANENDO Procedures Routine Benign prostatic hyperplasia with urinary retention Ordered: 11/28/2024 [facility] Comment on above: Ordered: 11/28/2024 Dressing Order: Eaton lt rope; Daily; 4x4 gauze, ABDs; Medfix tape Dressing Order: Mesalt rope; Daily; 4x4 gauze, ABDs; Medfix tape Wound Ostomy Routine Ordered: 03/29/2024 [employer] Work Phone: Comment on above: Ordered: 03/29/2024 Dressing Order: Eaton lt rope; Daily; 4x4 gauze, ABDs; Paper tape Dressing Order: Mesalt rope; Daily; 4x4 gauze, ABDs; Paper tape Wound Ostomy Routine Ordered: 03/22/2024 [employer] Work Phone: Comment on above: Ordered: 03/22/2024 Electrophoresis: [id number] [facility] Electrophoresis: [id number] [facility] Electrophoresis: [id number] [facility] Electrophoresis: [id number] [facility] Electrophoresis: jillian ma globulin [facility] Electrophoresis: jillian ma globulin [facility] Electrophoresis: jillian ma globulin [facility] Electrophoresis: jillian ma globulin [facility] Erythrocyte mean corpuscular volume determination [facility] Globulin measurement [facility] Globulin measurement [facility] Globulin measurement [facility] Globulin measurement [facility] Glucose [Mass/volume ] in Serum or Plasma [facility] Hematocrit [Volume Fraction] of Blood [facility] Hemoglobin [Mass/vol ume] in Blood [facility] End: 07-30-2023 Hemogram and platelets WO differential panel - Blood CBC and differential Lab Routine Essential hypertension 1 Occurrences starting 07/30/2022 until 07/30/2023 [facility] Comment on above: 1 Occurrences starting 07/30/2022 until 07/30/2023 IgA [Mass/volume] in Serum or Plasma [facility] IgA [Mass/volume] in Serum or Plasma [facility] IgA [Mass/volume] in Serum or Plasma [facility] IgA [Mass/volume] in Serum or Plasma [facility] IgG [Mass/volume] in Serum or Plasma [facility] IgG [Mass/volume] in Serum or Plasma [facility] IgG [Mass/volume] in Serum or Plasma [facility] IgG [Mass/volume] in Serum or Plasma [facility] IgM [Mass/volume] in Serum or Plasma [facility] IgM [Mass/volume] in Serum or Plasma [facility] IgM [Mass/volume] in Serum or Plasma [facility] IgM [Mass/volume] in Serum or Plasma [facility] IMMUNOFIXATION SERUM IMMUNOFIXAT ION SERUM Lab Routine Multiple myeloma, remission status unspecified 04/14/2023 12:36 PM EDT [facility] IMMUNOFIXATION SERUM IMMUNOFIXAT ION SERUM Lab Routine Multiple myeloma, remission status unspecified 09/08/2023 11:02 AM EST [facility] IMMUNOFIXATION SERUM IMMUNOFIXAT ION SERUM Lab Routine Multiple myeloma, remission status unspecified 03/08/2024 10:44 AM EDT [facility] IMMUNOGLOBULIN FREE CHAINS IMMUN OGLOBULIN FREE CHAINS Lab Routine Multiple myeloma, remission status unspecified 04/14/2023 12:36 PM EDT [facility] IMMUNOGLOBULIN FREE CHAINS IMMUN OGLOBULIN FREE CHAINS Lab Routine Multiple myeloma, remission status unspecified 09/08/2023 11:02 AM EST [facility] non-ndwellg monserrat dder catheter INSERT,NON-INDW BLADDER CATH Procedures Routine Benign prostatic hyperplasia with urinary retention Ordered: 11/28/2024 [facility] Comment on above: Ordered: 11/28/2024 [place]erview and lambda lig ht chains [facility] Centerview and lambda lig ht chains [facility] Centerview and lambda lig ht chains [facility] Centerview and lambda lig ht chains [facility] Centerview and lambda lig ht chains [facility] Centerview/lambda light c shantel ratio [facility] Centerview/lambda light c shantel ratio [facility] Centerview/lambda light c shantel ratio [facility] Centerview/lambda light c shantel ratio [facility] Laboratory data interpretation [facility] Laboratory data interpretation [facility] Lambda light chains. free [Mass/volume] in Serum or Plasma [facility] Lambda light chains. free [Mass/volume] in Serum or Plasma [facility] Lambda light chains. free [Mass/volume] in Serum or Plasma [facility] Lambda light chains. free [Mass/volume] in Serum or Plasma [facility] Leukemia, lymphoma evaluation by flow cytometry Leukemia, lymphoma evaluation by flow cytometry Lab Routine 01/29/2023 8:59 AM EDT [email or web address] Phone: Leukocytes [#/volume ] in Blood [facility] Lipid 1996 panel - S raudel or Plasma Lipid panel Lab Routine Mixed hyperlipidemia 07/31/2021 8:32 AM EDT [email or web address] Phone: End: 07-30-2023 Lipid panel with direct LDL - Serum or Plasma Lipid panel with reflex to direct LDL Lab Routine Mixed hyperlipidemia 1 Occurrences starting 07/30/2022 until 07/30/2023 [email or web address] Phone: Comment on above: 1 Occurrences starting 07/30/2022 until 07/30/2023 Magnesium [Mass/volu me] in Serum or Plasma [facility] Mean corpuscular hemoglobin concentration determination [facility] Mean corpuscular hemoglobin determination [facility] Measurement of renal function [facility] End: 01-29-2023 Microscopic exam [Interpretation] of Bone marrow by Cytology [email or web address] Phone: Comment on above: Once for 1 Occurrences starting 01/30/20 23 until 01/29/2023, 1 completed MONOCLONAL PROT IMMU NO, SERUM MONOCLONAL PROT IMMUNO, SERUM Lab Routine Multiple myeloma, remission status unspecified 04/14/2023 12:36 PM EDT [facility] MONOCLONAL PROT IMMU NO, SERUM MONOCLONAL PROT IMMUNO, SERUM Lab Routine Multiple myeloma, remission status unspecified 09/08/2023 11:02 AM EST [facility] MONOCLONAL PROT IMMU NO, SERUM MONOCLONAL PROT IMMUNO, SERUM Lab Routine Multiple myeloma, remission status unspecified 03/08/2024 10:44 AM EDT [facility] Neutrophil count [facility] Neutrophil percent differential count [facility] Patient Education [facility] Work Phone: Patient referral [facility] Work Phone: Platelets [#/volume] in Blood [facility] Potassium measurement [facility] Protein electrophoresis PROTEIN ELECTROPHORESIS Lab Routine Multiple myeloma, remission status unspecified 04/14/2023 12:36 PM EDT [facility] Protein electrophoresis PROTEIN ELECTROPHORESIS Lab Routine Multiple myeloma, remission status unspecified 09/08/2023 11:02 AM EST [facility] Protein electrophoresis PROTEIN ELECTROPHORESIS Lab Routine Multiple myeloma, remission status unspecified 03/08/2024 10:44 AM EDT [facility] Protein electrophore sis panel - Serum or Plasma [facility] Protein electrophore sis panel - Serum or Plasma [facility] Protein electrophore sis panel - Serum or Plasma [facility] Protein electrophore sis panel - Serum or Plasma [facility] Red blood cell count [facility] Red cell distributio n width determination [facility] Serum chloride measurement [facility] Serum immunofixation [facility] Serum immunofixation [facility] Serum immunofixation [facility] Serum immunofixation [facility] Serum immunofixation [facility] Serum immunofixation [facility] Sodium measurement [facility] Thyrotropin [Units/v olume] in Serum or Plasma TSH Lab Routine Hypothyroidism, unspecified type 07/31/2021 8:32 AM EDT [facility] End: 07-30-2023 Thyrotropin [Units/volume] in Serum or Plasma Thyroid stimulating hormone Lab Routine Hypothyroidism, unspecified type 1 Occurrences starting 07/30/2022 until 07/30/2023 [facility] Comment on above: 1 Occurrences starting 07/30/2022 until 07/30/2023 Thyroxine (T4) free [Mass/volume] in Serum or Plasma Thyroxine free Lab Routine Hypothyroidism, unspecified type 07/31/2021 8:32 AM EDT [facility] Total protein measurement [facility] Urea nitrogen [Mass/volume] in Serum or Plasma [facility] Urine culture [facility] Urine kappa light ch ain measurement [facility] Urine kappa light ch ain measurement [facility] Urine kappa light ch ain measurement [facility] Urine kappa light ch ain measurement [facility] US Kidney - bilatera l and Urinary bladder US KIDNEY/BLADDER Radiology Routine Benign prostatic hyperplasia with urinary retention 11/10/2024 3:02 PM EST [facility] Work Phone: End: 12-28-2025 US Kidney - bilateral and Urinary bladder US KIDNEY/BLADDER Radiology Routine Benign prostatic hyperplasia with urinary retention 1 Occurrences starting 11/28/2024 until 12/28/2025 [facility] Work Phone: Comment on above: 1 Occurrences starting 11/28/2024 until 12/28/2025 XR Bones Survey Views [facility] Immunizations Immunization Date Immunization Notes Care Provider [facility] 07-24-2024 Pneumococcal Vaccine PCV20 (Prevnar 20) Dr. Blade Milner DO Work Phone: [facility] 07-22-2024 Covid (Spikevax) Dr. Blade nolan DO Work Phone: [facility] 2023 influenza, injectabl e, quadrivalent, preservative free [employer] Anika Gay [facility] 2023 influenza virus vaccine, unspecified formulation Mickey Munoz DO Work Phone: [facility] 12-07-2022 influenza quadrivale nt (3 years and up) (AFLURIA) (PF) vaccine 0.5 mL Marcello Fisher DO Work Phone: [facility] 08-05-2022 Moderna (age 6 & old er) Bivalent Booster, COVID-19, 0.5 mL or 0.25 mL dosage Sherry Funesyard [employer] [facility] 10-08-2021 Moderna SARS-CoV-2 COVID-19, mRNA, LNP-S, preservative free Sherry Bolyard [employer] [facility] 03-06-2021 Covid (Moderna) Dr. Blade aleman DO Work Phone: [facility] 03-06-2021 SARS-COV-2 (COVID-19 ) Vaccine, Unspecified Petros Bartholomew MD Work Phone: [facility] 02-06-2021 Moderna SARS-CoV-2 COVID-19, mRNA, LNP-S, preservative free Petros Bartholomew MD Work Phone: [facility] Payers Date Payer Category Payer Private Health Insurance [employer] MED ICARE SUPPLEMENT [id number] 2023 Self-pay 2023 Unknown [id number] 06-27-2022 Medicare [id number] 06-27-2022 Medicare [id number] 03-27-2021 Unknown MEDICAL MUTUAL M EDICAL M[employer]UAL SUPERMED [id number] 03/27/2021-Present [address] [place] [address] [id number]. [id number] 03-27-2021 Unknown [id number] 03-27-2019 Unknown [id number]. 1.13.502.2. 7.3.102170.315 1957 Unknown [id number] 2.16.840.1.195499.3.579.2. 114 1957 Unknown [id number] 2.16.840.1.947609.3.579.2. 1143 1957 Unknown [id number] 2.16.840.1.943328.3.579.2. 1143 1957 Unknown [id number] 2.16.840.1.969953.3.579.2. 1143 1957 Unknown [id number] 2.16.840.1.311295.3.579.2. 1143 1957 Unknown [id number] 2.16.840.1.436213.3.579.2. 1143 1957 Unknown [id number] 2.16.840.1.757863.3.579.2. 1143 1957 Unknown [id number] 2.16.840.1.830534.3.579.2. 1143 1957 Unknown [id number] 2.16.840.1.066171.3.579.2. 114 1957 Unknown [id number] 2.16.840.1.392938.3.579.2. 1143 1957 Unknown [id number] 2.16.840.1.812453.3.579.2. 114 1957 Unknown [id number] 2.16.840.1.751457.3.579.2. 114 1957 Unknown [id number] 2.16.840.1.396771.3.579.2. 114 1957 Unknown [id number] 2.16.840.1.502729.3.579.2. 114 1957 Unknown [id number] 2.16.840.1.121446.3.579.2. 114 1957 Unknown [id number] 2.16.840.1.666543.3.579.2. 902 1957 Unknown [id number] 2.16.840.1.404699.3.579.2. 114 1957 Unknown [id number] 2.840.1.427895.3.579.2. 1142 1957 Unknown [id number] 2.16.840.1.094653.3.579.2. 114 1957 Unknown [id number] 2..840.1.793927.3.579.2. 1142 1957 Unknown [id number] 2..840.1.064186.3.579.2. 114 1957 Unknown [id number] 2..840.1.202846.3.579.2. 114 1957 Unknown [id number] 2.16.840.1.325084.3.579.2. 114 1957 Unknown [id number] 2.16.840.1.708760.3.579.2. 1142 1957 Unknown [id number] 2.16.840.1.780145.3.579.2. 1143 1957 Unknown [id number] 2.16.840.1.590496.3.579.2. 114 1957 Unknown [id number] 2.16.840.1.774072.3.579.2. 1143 1957 Unknown [id number] 2.16.840.1.364824.3.579.2. 1143 1957 Unknown [id number] 2.16.840.1.748925.3.579.2. 1143 1957 Unknown [id number] 2.16.840.1.237445.3.579.2. 1143 1957 Unknown [id number] 2..840.1.218786.3.579.2. 1143 1957 Unknown [id number] 2..840.1.965662.3.579.2. 1143 1957 Unknown [id number] 2..840.1.813174.3.579.2. 1143 1957 Unknown [id number] 2.16.840.1.452915.3.579.2. 594 1957 Unknown [id number] 2..840.1.059328.3.579.2. 594 Unknown [id number] 2.16.840.1.573949.3.579.2. 462 Unknown [id number] 2.16.840.1.204137.3.579.2. 462 Unknown [id number] 2.16.840.1.730794.3.579.2. 462 Unknown [id number] 2.16.840.1.998483.3.579.2. 462 Unknown [id number] 2.16.840.1.564743.3.579.2. 462 Unknown [id number] 2.16.840.1.833962.3.579.2. 462 Unknown [id number] 2.16.840.1.424998.3.579.2. 462 Unknown [id number] 2.16.840.1.997718.3.579.2. 462 Unknown [id number] 2.16840.1.133308.3.579.2. 462 Unknown [id number] 2.16840.1.615662.3.579.2. 462 Unknown [id number] 2.16840.1.097403.3.579.2. 462 Unknown [id number] 2.840.1.938628.3.579.2. 462 Unknown [id number] 2.16840.1.567097.3.579.2. 462 Unknown [id number] 2.840.1.768584.3.579.2. 462 Unknown [id number] 2.840.1.534478.3.579.2. 462 Unknown [id number] 2.840.1.224800.3.579.2. 462 Unknown [id number] 2.840.1.283905.3.579.2. 462 Unknown [id number] 2.840.1.194003.3.579.2. 462 Unknown [id number] 2.840.1.466189.3.579.2. 462 Unknown [id number] 2.840.1.570064.3.579.2. 462 Unknown [id number] 2.840.1.799668.3.579.2. 462 Unknown [id number] 2.840.1.943506.3.579.2. 462 Unknown [id number] 2.840.1.197707.3.579.2. 462 Unknown [id number] 2.840.1.324749.3.579.2. 462 Unknown [id number] 2.840.1.689825.3.579.2. 462 Unknown [id number] 2.840.1.149962.3.579.2. 462 Unknown [id number] 2.16840.1.584894.3.579.2. 462 Unknown [id number] 2.16840.1.956176.3.579.2. 462 Unknown [id number] 2.16840.1.472058.3.579.2. 462 Unknown [id number] 2.840.1.488309.3.579.2. 462 Unknown [id number] 2.840.1.836390.3.579.2. 462 Unknown [id number] 2.840.1.078748.3.579.2. 462 Unknown [id number] 2.840.1.203241.3.579.2. 462 Unknown [id number] 2.840.1.357486.3.579.2. 462 Unknown [id number] 2.840.1.766422.3.579.2. 462 Unknown [id number] 2.840.1.663764.3.579.2. 462 Unknown [id number] 2.840.1.412223.3.579.2. 462 Unknown [id number] 2.840.1.543804.3.579.2. 462 Unknown [id number] 2.840.1.573470.3.579.2. 462 Unknown [id number] 2.840.1.843287.3.579.2. 462 Unknown [id number] 2.840.1.847881.3.579.2. 462 Unknown [id number] 2.840.1.816707.3.579.2. 462 Unknown [id number] 2.840.1.303784.3.579.2. 462 Unknown [id number] 2.840.1.706645.3.579.2. 462 Unknown [id number] 2.840.1.426151.3.579.2. 462 Unknown [id number] 2.16.840.1.511848.3.579.2. 462 Unknown [id number] 2.16.840.1.004297.3.579.2. 462 Unknown [id number] 2.16.840.1.111633.3.579.2. 462 Unknown [id number] 2.16.840.1.797030.3.579.2. 462 Unknown [id number] 2.16.840.1.627848.3.579.2. 462 Unknown [id number] 2.16840.1.306954.3.579.2. 462 Unknown [id number] 2.840.1.431141.3.579.2. 462 Unknown [id number] 2.840.1.344174.3.579.2. 462 Unknown [id number] 2.840.1.460885.3.579.2. 462 Unknown [id number] 2.840.1.149083.3.579.2. 462 Unknown [id number] 2.840.1.047552.3.579.2. 462 Unknown [id number] 2.840.1.431207.3.579.2. 462 Unknown [id number] 2.16840.1.344808.3.579.2. 462 Unknown [id number] 2.16840.1.273580.3.579.2. 462 Unknown [id number] 2.16840.1.568731.3.579.2. 462 Unknown [id number] 2.16840.1.815984.3.579.2. 462 Unknown [id number] 2.16840.1.141197.3.579.2. 462 Unknown [id number] 2.16840.1.890045.3.579.2. 462 Unknown [id number] 2.16.840.1.174408.3.579.2. 462 Unknown [id number] 2.16.840.1.636977.3.579.2. 462 Unknown [id number] 2.16.840.1.779682.3.579.2. 462 Unknown [id number] 2.16.840.1.896220.3.579.2. 462 Unknown [id number] 2.16.840.1.576316.3.579.2. 462 Unknown [id number] 2.16.840.1.828113.3.579.2. 462 Unknown [id number] 2.16.840.1.994418.3.579.2. 462 Unknown [id number] 2.16840.1.801615.3.579.2. 462 Unknown [id number] 2.16840.1.604875.3.579.2. 462 Unknown [id number] 2.16840.1.238783.3.579.2. 462 Unknown [id number] 2.16840.1.959632.3.579.2. 462 Unknown [id number] 2.16.840.1.824947.3.579.2. 462 Unknown [id number] 2.16.840.1.968230.3.579.2. 462 Unknown [id number] 2.16840.1.828891.3.579.2. 462 Unknown [id number] 2.16.840.1.496210.3.579.2. 462 Unknown [id number] 2.16.840.1.063735.3.579.2. 462 Unknown [id number] 2.16.840.1.120299.3.579.2. 462 Unknown [id number] 2.16.840.1.645181.3.579.2. 462 Unknown [id number] 2.16.840.1.516396.3.579.2. 462 Unknown [id number] 2.16.840.1.299962.3.579.2. 462 Unknown [id number] 2.16.840.1.063632.3.579.2. 462 Social History Date Type Detail Facility Start: 07-31-2021 End: 01-31-2025 Tobacco smoking status NHIS Never smoker [facility] Start: 07-31-2021 End: 11-10-2024 Tobacco use and exposure Never used [facility] Start: 07-31-2021 End: 01-29-2023 Alcohol intake Current drinker of alcohol (finding) [facility] Start: 07-31-2021 End: 11-10-2024 Alcohol intake [facility] Start: 1955 Sex Assigned At Not on file T [facility] Start: 01-19-2022 End: 01-29-2023 Exposure to SARS-CoV-2 (event) Not sure [facility] Start: 2023 End: 12-15-2023 Tobacco smoking status COIS Tobacco smoking consumption unknown [facility] Start: 01-09-2023 End: 02-03-2023 Exposure to SARS-CoV-2 (event) Unable to assess [facility] Start: 11-13-2022 End: 11-10-2024 Tobacco use panel [facility] How hard is it for y ou to pay for the very basics like food, housing, medical care, and heating Not hard at all [facility] Do you feel stress - tense, restless, nervous, or anxious, or unable to sleep at night because your mind is troubled all the time - these days [OSQ] Not at all [facility] (I/We) worried whedurga er (my/our) food would run out before (I/we) got money to buy more. Never true [facility] Start: 1955 Sex Assigned At Male [facility] Start: 03-22-2024 End: 06-14-2024 Alcoholic beverage intake Ex-drinker (finding) [facility] Start: 11-10-2024 Alcoholic beverage intake Lifetime non-drinker (finding) [facility] Start: 12-07-2024 End: 01-06-2025 Sex Male (finding) [facility] Medical Equipment Procedure Code Equipment Code Equipment Origin al Text Equipment Identifier Dates Kit Surgiflo W 2 000 Units Ster Lyo - Sna - [id number] Start: 11-11-2022 Screw Set - Sna - [id number] Start: 11-11-2022 5.5x 100 Mino [id number] Start: 11-11-2022 Goals Date Patient Goal Desired Activity /State Functional Status Date Assessment Result Facility 08-13-2024 Functional status Up ad princess;Chair [facility] Work Phone: 08-12-2024 Functional status Tolerates Activity Well [facility] Work Phone: Mental Status Date Assessment Result Facility 08-13-2024 Cognitive function Voice/Name;Touch/Dequanki ng [facility] Work Phone: 08-07-2024 Cognitive function Appropriate;Cooperativ e [facility] Work Phone: Clinical Notes 07-31-2021 to 02-01-2025 Telephone Encounter - Mike Ceballos - 02/01/2025 3:46 PM EDTTelephone Encounter - Mike Ceballos - 02/01/2025 3:46 PM EDTPatient Niharika Sousa RN - 11/28/2024 2:48 PM EST Note Date & Type Note Facility 02-01-2025 Telephone encounter Note [facility] requested records from this patient's last office visit with Dr. Souza and last renal US. [facility] . Records were faxed 02/01/25 and scanned in. Mike Ceballos [facility] 02-01-2025 Miscellaneous Notes [facility] requested records from this patient's last office visit with Dr. Souza and last renal US. [facility] . Records were faxed 02/01/25 and scanned in. Mike Ceballos documented in this encounter [facility] 01-31-2025 Radiology Diagnostic study note [facility] Imaging Services [address] [place] [address] Abdomen/Pelvis W IV Cont ONLY MR#: [id number] Acct: [id number] Name: ARMAND BARRON LEAH Rep #: [id number] : 1955 M 69 From: Sammie Sharma MD PCP: Dr. Blade Milner, DO Status: REG ER Study:Abdomen/Pelvis W IV Cont ONLY Date of E xam: 01/31/25 Exam# [id number] Ordering Dr: Martha Newman DO PROCEDURE: CT ABDOMEN/PELVIS w IV CONT ONLY 01/31/2025 REASON FOR EXAM: ABDOMINAL PAIN, BLOATING TECHNIQUE: Abdomen and pelvis CT with intravenous contrast. Contiguous axial scans of 3.75 mm slice thicknesses. Sagittal and coronal reconstruction images were obtained. One or more dose reduction techniques were used (e.g., automated exposure control, adjustment of mA and/or kv according to patient size, use of iterative reconstruction technique). ORAL CONTRAST TYPE: None. AMOUNT: 0 mL CONTRAST: ISOVUE-300 VOLUME: 93 mL RADIATION DOSE SUMMARY: DLP: 960.77 MGycm COMPARISON: NO RELEVANT PRIOR. FINDINGS: Lung bases: Unremarkable. Liver: Normal in size and attenuation. No masses. No biliary ductal dilatation. Gallbladder: Surgically absent. Spleen: Normal in size. Pancreas: No masses. No ductal dilatation. Adrenals: No nodules or thickening. Kidneys: Large cystic mass, left inferior pole measuring 5.4 cm. Two small calcifications in the left inferior pole, proximally 0.3 cm. Bladder: Unremarkable. Reproductive Organs: Unremarkable prostate. Mild prostate gland calcification. Bowel: Diverticulosis without signs of diverticulitis. Appendix: Unremarkable. Lymph nodes: No lymphadenopathy. Vasculature: Mild atherosclerotic calcific disease of the aortoiliac arteries. Marked tortuosity of the iliac arteries. Peritoneum / Retroperitoneum: No free fluid. No pneumoperitoneum. No masses. Anterior abdominal wall: Small fat containing left inguinal hernia. Bones: Bilateral ischial cystic changes. Cystic changes are also noted in the bilateral hips. Cystic changes are scattered throughout multiple thoracic and lumbar vertebral bodies. CT/Abdomen/Pelvis W IV Cont ONLY IMPRESSION: 1. Multiple cystic/osteolytic changes are demonstrated. Can not exclude multiple myeloma and/or metastases. 2. Diverticulosis without signs of diverticulitis. 3. Left renal cyst. 4. Nonobstructing right nephrolithiasis. 5. Status post cholecystectomy. 6. Other nonacute findings detailed above. [facility]: Dr. Marleni Newman DO; Dr. 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 Blade Milner DO Status: REG CLI Study:Abdomen Single View Date of Exam: 01/04/25 Exam# [id number] Ordering Dr: Zayda Mtz NP [employer] [facility] [facility]CHER-C PROCEDURE: ABDOMEN SINGLE VIEW 01/04/2025 REASON FOR EXAM: ABD BLOATING TECHNIQUE: Single view abdomen. COMPARISON: None available FINDINGS: Bowel gas: Nonobstructive bowel gas pattern Calcifications: None Bones: Degenerative changes within the lower lumbar spine. Lucency within the proximal right femur, nonspecific. Calcification seen along the superior aspect of the greater trochanter. Bilateral hip joint space narrowing. Other: None RAD/Abdomen Single View IMPRESSION: Equivocal lucency seen within the proximal right femur, nonspecific. If there is persistent or unexplained right hip pain, further evaluation with CT pelvis would be recommended as clinically indicated. Bilateral hip osteoarthritis. Nonobstructive bowel gas pattern. Reading Location: [id number] CC: AP[facility]URE MASK ETCHER-C Zayda Hanson; Dr. 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 INSTRUCTIONS FROM DR. SOUZA: Ultra sound the kidney in 12 months PATIENT INFORMATION: Clean Intermittent Catheterization for Men Clean intermittent catheterization is a procedure for people who have trouble urinating the normal way. In a clean intermittent catheterization procedure, you insert a catheter (a thin, hollow tube) into your bladder to help you urinate. People who need to perform clean intermittent catheterization include those who have certain medical conditions, including: stroke Parkinson's disease multiple sclerosis spinal cord injuries spinal surgeries erectile dysfunction trauma/accidents central nervous system tumors cerebral palsy heavy metal poisoning If you have to perform clean intermittent catheterization, you will be inserting and removing the catheter several times a day; your doctor will tell you how many times. By performing this procedure every day, you will not have to wear a catheter all the time. In addition, you will help prevent kidney infection and keep your bladder from stretching. Here are the steps for performing a clean intermittent catheterization. Supplies You will need the following supplies: a catheter soap and towels a water-based lubricant plastic bags Before you insert the catheter Try to urinate before you insert the catheter. This will help prevent infection in your bladder. Also, move your clothing out of the way before you start. You will need to remove your pants and underwear. Men Inserting the catheter Wash your hands with soap and water. Wash your genital area thoroughly with soap and water to reduce the chance of infection. If you are not circumcised, pull back the foreskin and wash the area thoroughly. Take the catheter out of the package. Put a large amount of lubricant over the end of the catheter. This will help it slide in more easily. Do NOT use a petroleum-based lubricant. Sit on or stand near a toilet and spread your legs. Hold your penis out from your body in a horizontal position. Take the catheter in the other hand and gently insert it into the opening of the penis. Hold the other end of the catheter over the toilet bowl. Keep pushing the catheter until it reaches the bladder and urine starts to flow through the catheter. Insert the catheter another inch or so and hold it there. When the urine stops flowing, pinch off and gently remove the catheter. If you need to reuse the catheter, wash it with soap and warm water and place it in a plastic bag until the next time. However, if you are using a disposable catheter, simply throw it away. Wash your hands with soap and water. Most insurance companies are giving disposable catheters that you use once and then throw away. If you were not given disposable catheters, you can use a catheter for two to four weeks and replace it if it becomes discolored, hard, or brittle, or simply doesn t work properly anymore. Remember to always wash your hands with soap and water before you catheterize yourself, and drink plenty of liquids. These simple measures help fight infection. In addition, wear cotton boxer underwear, as these allow airflow and help keep you dry. Some troubleshooting advice What if no urine comes out of the catheter? Gently rotate the catheter in case it is blocked. Try gently pushing the catheter a little farther up into the penis or pull it back. What if I have pain or discomfort in inserting or removing the catheter? You may need to use more lubricant. Pain or discomfort may also be caused by muscle spasms. It helps to take a deep breath and try to relax before you catheterize yourself. Breathe in, then insert or remove the catheter as you slowly let your breath out. What if there is blood on the catheter or in the urine? This may happen if the opening is too dry. Try using more lubricant. Make sure you are drinking enough fluids. Blood in the urine could also mean you have an infection. Please call your caregiver if any of the following occurs: if you run a fever; if your urine is thick, cloudy, or has mucus in it; if you have red specks in your urine or your urine looks pink or red; if your urine has a strong smell; if you have pain or burning in your bladder, abdomen, or in your urethra (opening in the penis); if you have any questions. documented in this encounter [facility] 11-28-2024 Note HNO ID: [id number] Author: NIHARIKA HARRISON RN Service: ? Author Type: Registered Nurse Type: Progress Notes Filed: 11/28/2024 14:49 Note Text: Patient in for CIC teaching. Given [facility] CIC patient education sheet. Instructed on proper technique and s/s of infection, cath after trying to void, how to track. Verbalized understanding to all instruction. Patient able to cath self with nurse instruction/assistance. Used 16 mosotho coloplast speedicath soft catheter. Samples given. Quality Control Tester offered:Patient declines Niharika Harrison RN [facility] 11-28-2024 History of Presen t illness Narrative Patient in for CIC teaching. Given [facility] CIC patient education sheet. Instructed on proper technique and s/s of infection, cath after trying to void, how to track. Verbalized understanding to all instruction. Patient able to cath self with nurse instruction/assistance. Used 16 mosotho coloplast speedicath soft catheter. Samples given. Quality Control Tester offered:Patient declines Niharika Harrison RN documented in this encounter [facility] 11-28-2024 Note HNO ID: [id number] Author: RIC SOUZA MD Service: ? Author Type: Physician Type: Procedures Filed: 11/30/2024 14:42 Note Text: CYSTOSCOPY PROCEDURE NOTE: 65875-jroaz/fulg 07508-sybqk,bx 81953--ngmah/complex 77054--jvkyj 17259--ebvtxhhp cath 96108-jxkse/dilate BLADDER IRRIGATION, SIMPLE, LAVAG [[id number] Armand Barron is a 69 year old male who presents for cystoscopy. Pt ID verified with patient: yes Procedure verified with patient: yes Procedure confirmed with physician and security support analyst: yes Special equipment-cystoscope Dx: 1. Benign prostatic hyperplasia with urinary retention - ICD9: 600.01, 788.20, ICD10: N40.1, R33.8 UNIVERSAL PROTOCOL / SAFETY CHECKLIST Procedure to be Performed: cysto Sign In: A Moment of CARE was completed. Appropriate PPE (Personal Protective Equipment) worn by all providers involved with the procedure. Special equipment not required. Patient/Surrogate Stated/Verified: Patient name, Date of , Relevant allergies, and The intended procedure Time Out: Relevant labs, photos, and/or imaging studies have been reviewed. Intended patient and procedure match the source document(s) (e.g. consent, HANDP, associated studies [imaging, pathology]) match the intended patient and procedure. Consent obtained and matches the intended procedure. Yes. Correct side/site is not applicable. Medications required for this procedure are verified.-- Fire risk assessed and interventions discussed. Implants: are not applicable.-- Sign Out: Specimens are all correctly labeled and sent.-- All instruments, equipment, possible retained foreign bodies are accounted for. Yes. The post-procedure plan of care has been communicated to the patient or surrogate. Antibiotic was-Bactrim The benefits, risks, alternatives of the cystoscopy procedure and personnel were discussed with the patient. The verbal consent was obtained and the patient agrees to proceed. Procedure: The patient was placed on the procedure table in the supine position and prepped and draped in the usual sterile fashion. 2% Lidocaine Jelly was placed per urethra as an anesthetic in the standard fashion. Once adequate local anesthesia was achieved, the tip of the flexible cystoscope was carefully placed into the urethra under direct visual guidance. cystoscopy-no urethral stricture but ventral erosion of the meatus to shaft; lateral lobes hypertrophy mild just coapting in the midline and prostatic urethra is not long at all and bladder minimal trabeculation but posterior wall swelling is expected with chronic catheter At the conclusion of the procedure, the flexible cystoscope was removed atraumatically. The patient tolerated the procedure without complications. Patient was given standard post-procedure instructions, and was directed to complete the course of oral antibiotics and increase oral fluid intake as directed. ASSESSMENT/PLAN: 1. Benign prostatic hyperplasia with urinary retention - ICD9: 600.01, 788.20, ICD10: N40.1, R33.8 - UA DIP, URINE (POC) Ric Souza MD ASSESSMENT/PLAN: 1. Benign prostatic hyperplasia with urinary retention - ICD9: 600.01, 788.20, ICD10: N40.1, R33.8 - UA DIP, URINE (POC) Ric Souza See progress note for plans Ric Souza MD [facility] 11-28-2024 Procedure note Procedure(s): CYSTOSCOPY Pre-Procedure Diagnose(s): Benign prostatic hyperplasia with urinary retention Post-Procedure Diagnose(s): Benign prostatic hyperplasia with urinary retention CYSTOSCOPY PROCEDURE NOTE: 60220-ztyas/fulg 85639-shkrn,bx 95325--mfbtw/complex 12648--qdmmo 82388--lqiizbih cath 47932-ihtem/dilate BLADDER IRRIGATION, SIMPLE, LAVAG [[id number] Armand Barron is a 69 year old male who presents for cystoscopy. Pt ID verified with patient: yes Procedure verified with patient: yes Procedure confirmed with physician and security support analyst: yes Special equipment-cystoscope Dx: 1. Benign prostatic hyperplasia with urinary retention - ICD9: 600.01, 788.20, ICD10: N40.1, R33.8 UNIVERSAL PROTOCOL / SAFETY CHECKLIST Procedure to be Performed: cysto Sign In: A Moment of CARE was completed. Appropriate PPE (Personal Protective Equipment) worn by all providers involved with the procedure. Special equipment not required. Patient/Surrogate Stated/Verified: Patient name, Date of , Relevant allergies, and The intended procedure Time Out: Relevant labs, photos, and/or imaging studies have been reviewed. Intended patient and procedure match the source document(s) (e.g. consent, H&P, associated studies [imaging, pathology]) match the intended patient and procedure. Consent obtained and matches the intended procedure. Yes. Correct side/site is not applicable. Medications required for this procedure are verified.-- Fire risk assessed and interventions discussed. Implants: are not applicable.-- Sign Out: Specimens are all correctly labeled and sent.-- All instruments, equipment, possible retained foreign bodies are accounted for. Yes. The post-procedure plan of care has been communicated to the patient or surrogate. Antibiotic was-Bactrim The benefits, risks, alternatives of the cystoscopy procedure and personnel were discussed with the patient. The verbal consent was obtained and the patient agrees to proceed. Procedure: The patient was placed on the procedure table in the supine position and prepped and draped in the usual sterile fashion. 2% Lidocaine Jelly was placed per urethra as an anesthetic in the standard fashion. Once adequate local anesthesia was achieved, the tip of the flexible cystoscope was carefully placed into the urethra under direct visual guidance. cystoscopy-no urethral stricture but ventral erosion of the meatus to shaft; lateral lobes hypertrophy mild just coapting in the midline and prostatic urethra is not long at all and bladder minimal trabeculation but posterior wall swelling is expected with chronic catheter At the conclusion of the procedure, the flexible cystoscope was removed atraumatically. The patient tolerated the procedure without complications. Patient was given standard post-procedure instructions, and was directed to complete the course of oral antibiotics and increase oral fluid intake as directed. ASSESSMENT/PLAN: 1. Benign prostatic hyperplasia with urinary retention - ICD9: 600.01, 788.20, ICD10: N40.1, R33.8 - UA DIP, URINE (POC) Ric Souza MD ASSESSMENT/PLAN: 1. Benign prostatic hyperplasia with urinary retention - ICD9: 600.01, 788.20, ICD10: N40.1, R33.8 - UA DIP, URINE (POC) Ric Souza See progress note for plans Ric Souza MD [facility] 11-28-2024 Procedure note Procedure(s): CYSTOSCOPY Pre-Procedure Diagnose(s): Benign prostatic hyperplasia with urinary retention Post-Procedure Diagnose(s): Benign prostatic hyperplasia with urinary retention CYSTOSCOPY PROCEDURE NOTE: 96430-khqvs/fulg 37453-laneq,bx 12803--fthui/complex 81017--klsaj 34970--ibxhhaif cath 53721-ohbii/dilate BLADDER IRRIGATION, SIMPLE, LAVAG [[id number] Armand Barron is a 69 year old male who presents for cystoscopy. Pt ID verified with patient: yes Procedure verified with patient: yes Procedure confirmed with physician and security support analyst: yes Special equipment-cystoscope Dx: 1. Benign prostatic hyperplasia with urinary retention - ICD9: 600.01, 788.20, ICD10: N40.1, R33.8 UNIVERSAL PROTOCOL / SAFETY CHECKLIST Procedure to be Performed: cysto Sign In: A Moment of CARE was completed. Appropriate PPE (Personal Protective Equipment) worn by all providers involved with the procedure. Special equipment not required. Patient/Surrogate Stated/Verified: Patient name, Date of , Relevant allergies, and The intended procedure Time Out: Relevant labs, photos, and/or imaging studies have been reviewed. Intended patient and procedure match the source document(s) (e.g. consent, H&P, associated studies [imaging, pathology]) match the intended patient and procedure. Consent obtained and matches the intended procedure. Yes. Correct side/site is not applicable. Medications required for this procedure are verified.-- Fire risk assessed and interventions discussed. Implants: are not applicable.-- Sign Out: Specimens are all correctly labeled and sent.-- All instruments, equipment, possible retained foreign bodies are accounted for. Yes. The post-procedure plan of care has been communicated to the patient or surrogate. Antibiotic was-Bactrim The benefits, risks, alternatives of the cystoscopy procedure and personnel were discussed with the patient. The verbal consent was obtained and the patient agrees to proceed. Procedure: The patient was placed on the procedure table in the supine position and prepped and draped in the usual sterile fashion. 2% Lidocaine Jelly was placed per urethra as an anesthetic in the standard fashion. Once adequate local anesthesia was achieved, the tip of the flexible cystoscope was carefully placed into the urethra under direct visual guidance. cystoscopy-no urethral stricture but ventral erosion of the meatus to shaft; lateral lobes hypertrophy mild just coapting in the midline and prostatic urethra is not long at all and bladder minimal trabeculation but posterior wall swelling is expected with chronic catheter At the conclusion of the procedure, the flexible cystoscope was removed atraumatically. The patient tolerated the procedure without complications. Patient was given standard post-procedure instructions, and was directed to complete the course of oral antibiotics and increase oral fluid intake as directed. ASSESSMENT/PLAN: 1. Benign prostatic hyperplasia with urinary retention - ICD9: 600.01, 788.20, ICD10: N40.1, R33.8 - UA DIP, URINE (POC) Ric Souza MD ASSESSMENT/PLAN: 1. Benign prostatic hyperplasia with urinary retention - ICD9: 600.01, 788.20, ICD10: N40.1, R33.8 - UA DIP, URINE (POC) Ric Souza See progress note for plans Ric Souza MD documented in this encounter [facility] 11-28-2024 Note HNO ID: [id number] Author: RIC SOUZA MD Service: ? 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 PATIENT INFO: Armand Barron 69 year old HPI 11/28/2024 CC: cysto For cystoscopy today and just 1 mild lateral lobe BPH somewhat coapting in the middle but not long prostate at all and bladder entered and not significant trabeculation but edema posterior wall consistent with having a long-term catheter Ventral erosion of the meatus to the shaft Presents to learn intermittent catheterization--able to do---do 4x/day With his daughter today Ultrasound showed no concerning issues Follow-up 12 months with renal ultrasound at the latest and earlier if problems Past Urology Hx: 11/10/2024 Pt CC: vanegas history per oncology note as below-- a lot of spine and lower extremity neurological issues and is following surgery infections Presents with his sister and he ambulates and able to support himself with walker Vanegas catheter over the last 2 years and last time they tried voiding trial failed At the care facility Never saw urology Has been seeing outside institutions On [facility] They will do renal ultrasound and follow-up for cystoscopy and see nurse to learn intermittent catheterization On exam some ventral erosion of the meatus discussed He has good hand dexterity September 06, 2024-seen by oncology- Armand Beatrice is a 69 y.o. male who presents to the Plasma cell dyscrasia clinic today at the [facility] for 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 Please allow me to review the patient's oncological history to date: worsening pain over the course of a year. He presented to the hospital on the 11/10/2022 with progressive weakness and loss of sensation in bilateral legs. MRI of spine showed compression fracture at T2 and T7 levels as well as the presence of a substantial epidural tumor at T7 with cord compression. There were also multiple bone lesions throughout the spine and pelvis. CT chest abdomen and pelvis on 11/10/2022: Multiple lytic lesions throughout the skeleton, mildly enlarged hilar and mediastinal lymph nodes but no solid tumor or masses. 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 Radiation Oncology was consulted and he underwent MOPP radiation to that area. No bone marrow biopsy done. Patient had been doing therapy at [facility] in [place] and staff noted that his incision began looking erythematous, with copious drainage. He was sent back to [facility] for evaluation by neurosurgery. Went to IR on 12/02 for drain placement and fluid sent for culture, no growth. He remained clinically very stable. Patient discharged to return to [facility] in [place] The patient received a course of 20 Dan delivered in 5 fractions to the thoracic spine encompassing T2-T7 (T1-T8). He was started on DRD on 03/08/23. There was delays due to delayed wound healing. INTERVAL HISTORY: He was admitted in May for back wound infection and UTI. He had surgical revision of his wound. . He is getting daratumumab injections every 4 weeks. His last dose was on injection on 08/17. He has been off revlimid since March. He feels the weakness in his legs are getting better. He is now walking more. on eliqu. He still has a urinary catheter. He denies hematuria. He had a catheter replaced on Wednesday. Labs/Radiology/Procedures: November 28, [id number]-ny urethral stricture but ventral erosion of the meatus to shaft; lateral lobes hypertrophy mild just coapting in the midline and prostatic urethra is not long at all and bladder minimal trabeculation but posterior wall swelling is expected with chronic catheter November 10, 2024-renal ultrasound-no hydronephrosis; 5.8 cm left lower pole renal cyst 2022-CT with IV outside fkpcavfbtbj-ehwefzpn-tyzx renal cyst and Vanegas catheter in place and prostate gland normal size No results found for: CREAT No results found for: PSA No results found for: COLOR, CLARITY, UGLUC, UBILI, UKET, SPGR, UHB, UPH, UPROT, UROBILINOGEN, NITRITES, LEUKEST Review of Systems Constitutional: Negative. HENT: Negative. Eyes: Negative. Respiratory: Negative. Cardiovascular: Negative. Gastrointestinal: Negative. Endocrine: Negative. Genitourinary: See HPI Musculoskeletal: Negative. Skin: Negative. Allergic/Immunologic: Negative. Neurological: Negative. Hematological: Negative. Psychiatric/Behavioral: Negative. I reviewed and confirmed ROS obtained by [facility] HISTORIES PAST MEDICAL HISTORY Diagnosis Date HTN (hypertension) No family history on file. SOCIAL HISTORY Social History Tobacco Use Smoking status: N (more content not included)... [facility] 11-28-2024 History of Presen t illness Narrative ESTABLISHED PATIENT OFFICE VISIT patient declined film sound coordinator PATIENT INFO: Armand Barron 69 year old HPI 11/28/2024 CC: cysto For cystoscopy today and just 1 mild lateral lobe BPH somewhat coapting in the middle but not long prostate at all and bladder entered and not significant trabeculation but edema posterior wall consistent with having a long-term catheter Ventral erosion of the meatus to the shaft Presents to learn intermittent catheterization--able to do---do 4x/day With his daughter today Ultrasound showed no concerning issues Follow-up 12 months with renal ultrasound at the latest and earlier if problems Past Urology Hx: 11/10/2024 Pt CC: vanegas history per oncology note as below-- a lot of spine and lower extremity neurological issues and is following surgery infections Presents with his sister and he ambulates and able to support himself with walker Vanegas catheter over the last 2 years and last time they tried voiding trial failed At the care facility Never saw urology Has been seeing outside institutions On Eliquis They will do renal ultrasound and follow-up for cystoscopy and see nurse to learn intermittent catheterization On exam some ventral erosion of the meatus discussed He has good hand dexterity September 06, 2024-seen by oncology- Armand Barron is a 69 y.o. male who presents to the Plasma cell dyscrasia clinic today at the [facility] for 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 Please allow me to review the patient's oncological history to date: worsening pain over the course of a year. He presented to the hospital on the 11/10/2022 with progressive weakness and loss of sensation in bilateral legs. MRI of spine showed compression fracture at T2 and T7 levels as well as the presence of a substantial epidural tumor at T7 with cord compression. There were also multiple bone lesions throughout the spine and pelvis. CT chest abdomen and pelvis on 11/10/2022: Multiple lytic lesions throughout the skeleton, mildly enlarged hilar and mediastinal lymph nodes but no solid tumor or masses. 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 Radiation Oncology was consulted and he underwent MOPP radiation to that area. No bone marrow biopsy done. Patient had been doing therapy at [facility] in [place] and staff noted that his incision began looking erythematous, with copious drainage. He was sent back to [facility] for evaluation by neurosurgery. Went to IR on 12/02 for drain placement and fluid sent for culture, no growth. He remained clinically very stable. Patient discharged to return to [facility] in [place] The patient received a course of 20 Dan delivered in 5 fractions to the thoracic spine encompassing T2-T7 (T1-T8). He was started on DRD on 03/08/23. There was delays due to delayed wound healing. INTERVAL HISTORY: He was admitted in May for back wound infection and UTI. He had surgical revision of his wound. . He is getting daratumumab injections every 4 weeks. His last dose was on injection on 08/17. He has been off revlimid since March. He feels the weakness in his legs are getting better. He is now walking more. on eliquis. He still has a urinary catheter. He denies hematuria. He had a catheter replaced on Wednesday. Labs/Radiology/Procedures: November 28, [id number] urethral stricture but ventral erosion of the meatus to shaft; lateral lobes hypertrophy mild just coapting in the midline and prostatic urethra is not long at all and bladder minimal trabeculation but posterior wall swelling is expected with chronic catheter November 10, 2024-renal ultrasound-no hydronephrosis; 5.8 cm left lower pole renal cyst Febrile 2022-CT with IV outside [id number] renal cyst and Vanegas catheter in place and prostate gland normal size No results found for: CREAT No results found for: PSA No results found for: COLOR, CLARITY, UGLUC, UBILI, UKET, SPGR, UHB, UPH, UPROT, UROBILINOGEN, NITRITES, LEUKEST Review of Systems Constitutional: Negative. HENT: Negative. Eyes: Negative. Respiratory: Negative. Cardiovascular: Negative. Gastrointestinal: Negative. Endocrine: Negative. Genitourinary: See HPI Musculoskeletal: Negative. Skin: Negative. Allergic/Immunologic: Negative. Neurological: Negative. Hematological: Negative. Psychiatric/Behavioral: Negative. I reviewed and confirmed ROS obtained by [facility] HISTORIES PAST MEDICAL HISTORY Diagnosis Date HTN (hypertension) No family history on file. SOCIAL HISTORY Social History Tobacco Use Smoking status: Never Smokeless tobacco: Never Substance Use Topics Alcohol use: Never Drug use: Never MEDICATIONS: acetaminophen (TYLENOL) 500 mg tablet Take 1,000 mg by mouth every 6 hours as needed. acyclovir (ZOVIRAX) 400 mg tablet Take 400 mg by mouth. amLODIPine (NORVASC) 10 mg tablet Take 10 mg by mouth. amoxicillin (AMOXIL) 500 mg capsule baclofen 5 mg tablet apixaban (ELIQUIS) 5 mg tab(s) Take 5 mg by mouth. Ascorbic Acid 1,000 mg tablet Take 1,000 mg by mouth. cefdinir (OMNICEF) 300 mg capsule dexAMETHasone (DECADRON) 4 mg tablet Take 4 mg by mouth every 4 weeks. doxycycline (VIBRA-TABS) 100 mg tablet ferrous sulfate 325 mg (65 mg iron) tablet Take 325 mg by mouth. gabapentin (NEURONTIN) 100 mg capsule Take 100 mg by mouth. levothyroxine (SYNTHROID) 88 mcg tablet Take 88 mcg by mouth. magnesium hydroxide (MOM) 400 mg/5 mL suspension Take 30 mL by mouth. metoprolol tartrate, short acting, (LOPRESSOR) 50 mg tablet Take 50 mg by mouth. apixaban (ELIQUIS) 5 mg tab(s) Take by mouth two times a day. Physical Exam Musculoskeletal: Comments: walker Neurological: Mental Status: He is alert and oriented to person, place, and time. Risk/Benefit Discussion: Cystoscopy I explained the options concerning cystoscopy I did tell the patient about various alternatives and why cystoscopy was indicated in this particular circumstance. I advised the patient about the possible outcome and the possibility of infection post operatively and possible dysuria or hematuria. The patient expressed an understanding with regard to possible complications and outcome. FOLLOW UP (1s&1w; 3s): Return in about 1 year (around 11/28/2025). ASSESSMENT/PLAN: 1. Benign prostatic hyperplasia with urinary retention - ICD9: 600.01, 788.20, ICD10: N40.1, R33.8 (primary diagnosis) - UA DIP, URINE (POC) - LIDOCAINE 2 % MUCOSAL JELLY IN APPLICATOR - CATHETER ORDER FOR HOME - KIDNEY/BLADDER - CYSTO.PANENDO - INSERT,NON-INDW BLADDER CATH 2. Neurogenic bladder - ICD9: 596.54, ICD10: N31.9 Ric Souza The sensitive exam: The sensitive examination was discussed with the Patient or Patient's Authorized Atm Technician. As applicable, any other physician, advance practice provider, medical student, or other health professional student that will be observing or involved in the sensitive examination for educational or training purposes was discussed with the Patient or Authorized Atm Technician. The Patient or Authorized Atm Technician has agreed to proceed with the sensitive examination. (Sensitive examination includes inspection and/or palpation of the breasts, pelvis, prostate and anorectal regions) Please note: This note has been produced using speech recognition software and may contain errors related to that system including grammar, punctuation, spelling, gender and words and phrases that may be inappropriate. documented in this encounter [facility] 11-10-2024 History of Presen t illness Narrative Radiology Service Progress Note PATIENT NAME: Armand Barron DATE OF SERVICE: November 10, 2024 TIME: 3:00 PM PATIENT IDENTITY VERIFICATION COMPLETED USING TWO (2) IDENTIFIERS: Name and Date of confirmed by patient verbally. FALL SCREENING: Has the patient had 2 falls in the last year or 1 fall with injury or currently using an Ambulatory Assistive Device (Walker, Cane, Wheelchair, Crutches, etc.)? Yes, Patient High Risk for Falls What interventions were put in place to prevent falls during this visit? Offered Assistance with Transfers/Clothing, Increased Observations by Caregivers, and Patient Refused Interventions/Assistance PATIENT GENDER DATA: Assigned male at PATIENT RELEVANT IMPLANT DATA REVIEWED: Not Applicable PATIENT PRESENTS WITH AN IMPLANTABLE OR ATTACHED PHOSPHORIC ACID OPERATOR: No RADIOLOGY DEPARTMENT: Ultrasound PERIPHERAL IV DATA: Not applicable SIGNED BY: Cecy Paige RDMS November 10, 2024 3:00 PM documented in this encounter [facility] 11-10-2024 Note HNO ID: [id number] Author: CECY PAIGE RDMS Service: ? Author Type: Wire Photo Operator Type: Progress Notes Filed: 11/10/2024 15:01 Note Text: Radiology Service Progress Note PATIENT NAME: Armand Barron DATE OF SERVICE: November 10, 2024 TIME: 3:00 PM PATIENT IDENTITY VERIFICATION COMPLETED USING TWO (2) IDENTIFIERS: Name and Date of confirmed by patient verbally. FALL SCREENING: Has the patient had 2 falls in the last year or 1 fall with injury or currently using an Ambulatory Assistive Device (Walker, Cane, Wheelchair, Crutches, etc.)? Yes, Patient High Risk for Falls What interventions were put in place to prevent falls during this visit? Offered Assistance with Transfers/Clothing, Increased Observations by Caregivers, and Patient Refused Interventions/Assistance PATIENT GENDER DATA: Assigned male at PATIENT RELEVANT IMPLANT DATA REVIEWED: Not Applicable PATIENT PRESENTS WITH AN IMPLANTABLE OR ATTACHED PHOSPHORIC ACID OPERATOR: No RADIOLOGY DEPARTMENT: Ultrasound PERIPHERAL IV DATA: Not applicable SIGNED BY: Cecy Paige RDMS November 10, 2024 3:00 PM [facility] 11-10-2024 Instructions Ric Souza MD - 11/10/2024 10:13 AM EST INSTRUCTIONS FROM DR. SOUZA: Do the ultrasound of the kidney PATIENT INFORMATION: Cystoscopy is a test that uses a thin, lighted tube called a cystoscope to see the inside of the bladder and the urethra (the tube that carries urine out of the body). The doctor can use the scope to look for bladder stones, tumors, bleeding, and sources of infection. This test lets your doctor look at areas of your bladder and urethra that do not show up well on X-rays. You are likely having this test to find out what is causing the blood in your urine, but your doctor may also do this test to evaluate other possible bladder problems. Your doctor may be able to tell you some of the results right after the test. The test usually takes less than 5 minutes and no special preparation is required (you may eat and drink and take your medications as usual before the test). Your doctor may prescribe a single dose of an antibiotic before the test if he feel's that you may be at increased risk for developing an infection (a 2-3% risk). Cystoscopy is usually done in the office with a local anesthetic that is instilled directly into your urethra. There is perhaps some temporary discomfort with urination after the test. documented in this encounter [facility] 11-10-2024 Note HNO ID: [id number] Author: RIC SOUZA MD Service: ? Author Type: Physician Type: Progress Notes Filed: 11/16/2024 10:16 Note Text: NEW PATIENT HISTORY AND PHYSICAL EXAM patient declined film sound coordinator PATIENT INFO: Armand Barron 69 year old HPI 11/10/2024 Pt CC: vanegas history per oncology note as below-- a lot of spine and lower extremity neurological issues and is following surgery infections Presents with his sister and he ambulates and able to support himself with walker Vanegas catheter over the last 2 years and last time they tried voiding trial failed At the care facility Never saw urology Has been seeing outside institutions On Eliquis They will do renal ultrasound and follow-up for cystoscopy and see nurse to learn intermittent catheterization On exam some ventral erosion of the meatus discussed He has good hand dexterity Past Uology History: September 06, 2024-seen by oncology- Armand Barron is a 69 y.o. male who presents to the Plasma cell dyscrasia clinic today at the [facility] for 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 Please allow me to review the patient's oncological history to date: worsening pain over the course of a year. He presented to the hospital on the 11/10/2022 with progressive weakness and loss of sensation in bilateral legs. MRI of spine showed compression fracture at T2 and T7 levels as well as the presence of a substantial epidural tumor at T7 with cord compression. There were also multiple bone lesions throughout the spine and pelvis. CT chest abdomen and pelvis on 11/10/2022: Multiple lytic lesions throughout the skeleton, mildly enlarged hilar and mediastinal lymph nodes but no solid tumor or masses. 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 Radiation Oncology was consulted and he underwent MOPP radiation to that area. No bone marrow biopsy done. Patient had been doing therapy at [facility] in [place] and staff noted that his incision began looking erythematous, with copious drainage. [facility]. Went to IR on 12/02 for drain placement and fluid sent for culture, no growth. He remained clinically very stable. Patient discharged to return to [facility] in [place] The patient received a course of 20 Dan delivered in 5 fractions to the thoracic spine encompassing T2-T7 (T1-T8). He was started on DRD on 03/08/23. There was delays due to delayed wound healing. INTERVAL HISTORY: He was admitted in May for back wound infection and UTI. He had surgical revision of his wound. . He is getting daratumumab injections every 4 weeks. His last dose was on injection on 08/17. He has been off revlimid since March. He feels the weakness in his legs are getting better. He is now walking more. on eliquis. He still has a urinary catheter. He denies hematuria. He had a catheter replaced on Wednesday. Labs/Radiology/Procedures: Febrile 14 2022-CT with IV outside [id number]-[id number] renal cyst and Vanegas catheter in place and prostate gland normal size No results found for: CREAT No results found for: PSA No results found for: COLOR, CLARITY, UGLUC, UBILI, UKET, SPGR, UHB, UPH, UPROT, UROBILINOGEN, NITRITES, LEUKEST Review of Systems Constitutional: Negative. HENT: Negative. Eyes: Negative. Respiratory: Negative. Cardiovascular: Negative. Gastrointestinal: Negative. Endocrine: Negative. Genitourinary: See HPI Musculoskeletal: Negative. Skin: Negative. Allergic/Immunologic: Negative. Neurological: Negative. Hematological: Negative. I reviewed and confirmed ROS done by [facility] HISTORIES PAST MEDICAL HISTORY Diagnosis Date HTN (hypertension) No family history on file. SOCIAL HISTORY Social History Tobacco Use Smoking status: Never Smokeless tobacco: Never Substance Use Topics Alcohol use: Never Drug use: Never MEDICATIONS: acetaminophen (TYLENOL) 500 mg tablet Take 1,000 mg by mouth every 6 hours as needed. acyclovir (ZOVIRAX) 400 mg tablet Take 400 mg by mouth. amLODIPine (NORVASC) 10 mg tablet Take 10 mg by mouth. amoxicillin (AMOXIL) 500 mg capsule baclofen 5 mg tablet apixaban (ELIQUIS) 5 mg tab(s) Take 5 mg by mouth. Ascorbic Acid 1,000 mg tablet Take 1,000 mg by mouth. cefdinir (OMNICEF) 300 mg capsule dexAMETHasone (DECADRON) 4 mg tablet Take 4 mg by mouth every 4 weeks. doxycycline (VIBRA-TABS) 100 mg tablet ferrous sulfate 325 mg (65 mg iron) tablet Take 325 mg by mouth. gabapentin (NEURONTIN) 100 mg capsule Take 100 mg by mouth. levothyroxine (SYNTHROID) 88 mcg tablet Take 88 mcg by mouth. magnesium hydroxide (MOM) 400 mg/5 mL suspension Take 30 mL by mouth. metoprolol tartrate, short acting, (LOPRESSOR) 50 mg t (more content not included)... [facility] 11-10-2024 History of Presen t illness Narrative NEW PATIENT HISTORY AND PHYSICAL EXAM patient declined film sound coordinator PATIENT INFO: Armand Barron 69 year old HPI 11/10/2024 Pt CC: vanegas history per oncology note as below-- a lot of spine and lower extremity neurological issues and is following surgery infections Presents with his sister and he ambulates and able to support himself with walker Vanegas catheter over the last 2 years and last time they tried voiding trial failed At the care facility Never saw urology Has been seeing outside institutions On Eliquis They will do renal ultrasound and follow-up for cystoscopy and see nurse to learn intermittent catheterization On exam some ventral erosion of the meatus discussed He has good hand dexterity Past Uology History: September 06, 2024-seen by oncology- Armand Barron is a 69 y.o. male who presents to the Plasma cell dyscrasia clinic today at the [facility] for 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 Please allow me to review the patient's oncological history to date: worsening pain over the course of a year. He presented to the hospital on the 11/10/2022 with progressive weakness and loss of sensation in bilateral legs. MRI of spine showed compression fracture at T2 and T7 levels as well as the presence of a substantial epidural tumor at T7 with cord compression. There were also multiple bone lesions throughout the spine and pelvis. CT chest abdomen and pelvis on 11/10/2022: Multiple lytic lesions throughout the skeleton, mildly enlarged hilar and mediastinal lymph nodes but no solid tumor or masses. 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 Radiation Oncology was consulted and he underwent MOPP radiation to that area. No bone marrow biopsy done. Patient had been doing therapy at [facility] in [place] and staff noted that his incision began looking erythematous, with copious drainage. [facility]. Went to IR on 12/02 for drain placement and fluid sent for culture, no growth. He remained clinically very stable. Patient discharged to return to [facility] in [place] The patient received a course of 20 Dan delivered in 5 fractions to the thoracic spine encompassing T2-T7 (T1-T8). He was started on DRD on 03/08/23. There was delays due to delayed wound healing. INTERVAL HISTORY: He was admitted in May for back wound infection and UTI. He had surgical revision of his wound. . He is getting daratumumab injections every 4 weeks. His last dose was on injection on 08/17. He has been off revlimid since March. He feels the weakness in his legs are getting better. He is now walking more. on eliquis. He still has a urinary catheter. He denies hematuria. He had a catheter replaced on Wednesday. Labs/Radiology/Procedures: Febrile 14 2022-CT with IV outside [id number]-vlrdjoia-[id number] renal cyst and Vanegas catheter in place and prostate gland normal size No results found for: CREAT No results found for: PSA No results found for: COLOR, CLARITY, UGLUC, UBILI, UKET, SPGR, UHB, UPH, UPROT, UROBILINOGEN, NITRITES, LEUKEST Review of Systems Constitutional: Negative. HENT: Negative. Eyes: Negative. Respiratory: Negative. Cardiovascular: Negative. Gastrointestinal: Negative. Endocrine: Negative. Genitourinary: See HPI Musculoskeletal: Negative. Skin: Negative. Allergic/Immunologic: Negative. Neurological: Negative. Hematological: Negative. I reviewed and confirmed ROS done by MA HISTORIES PAST MEDICAL HISTORY Diagnosis Date HTN (hypertension) No family history on file. SOCIAL HISTORY Social History Tobacco Use Smoking status: Never Smokeless tobacco: Never Substance Use Topics Alcohol use: Never Drug use: Never MEDICATIONS: acetaminophen (TYLENOL) 500 mg tablet Take 1,000 mg by mouth every 6 hours as needed. acyclovir (ZOVIRAX) 400 mg tablet Take 400 mg by mouth. amLODIPine (NORVASC) 10 mg tablet Take 10 mg by mouth. amoxicillin (AMOXIL) 500 mg capsule baclofen 5 mg tablet apixaban (ELIQUIS) 5 mg tab(s) Take 5 mg by mouth. Ascorbic Acid 1,000 mg tablet Take 1,000 mg by mouth. cefdinir (OMNICEF) 300 mg capsule dexAMETHasone (DECADRON) 4 mg tablet Take 4 mg by mouth every 4 weeks. doxycycline (VIBRA-TABS) 100 mg tablet ferrous sulfate 325 mg (65 mg iron) tablet Take 325 mg by mouth. gabapentin (NEURONTIN) 100 mg capsule Take 100 mg by mouth. levothyroxine (SYNTHROID) 88 mcg tablet Take 88 mcg by mouth. magnesium hydroxide (MOM) 400 mg/5 mL suspension Take 30 mL by mouth. metoprolol tartrate, short acting, (LOPRESSOR) 50 mg tablet Take 50 mg by mouth. apixaban (ELIQUIS) 5 mg tab(s) Take by mouth two times a day. Physical Exam HENT: Head: Normocephalic and atraumatic. Nose: Nose normal. Neck: Trachea: No tracheal deviation. Pulmonary: Effort: Pulmonary effort is normal. No respiratory distress. Genitourinary: Comments: Vanegas catheter in place and ventral meatal erosion Musculoskeletal: General: No deformity. Comments: walker Skin: General: Skin is warm. Neurological: Mental Status: He is alert and oriented to person, place, and time. Gait: Gait is intact. Psychiatric: Mood and Affect: Mood and affect normal. Cognition and Memory: Memory normal. The sensitive exam: The sensitive examination was discussed with the Patient or Patient's Authorized Atm Technician. As applicable, any other physician, advance practice provider, medical student, or other health professional student that will be observing or involved in the sensitive examination for educational or training purposes was discussed with the Patient or Authorized Atm Technician. The Patient or Authorized Atm Technician has agreed to proceed with the sensitive examination. (Sensitive examination includes inspection and/or palpation of the breasts, pelvis, prostate and anorectal regions) Risk/Benefit Discussion: FOLLOW UP: Return in about 3 weeks (around 12/01/2024). ASSESSMENT/PLAN: 1. Benign prostatic hyperplasia with urinary retention - ICD9: 600.01, 788.20, ICD10: N40.1, R33.8 - US KIDNEY/BLADDER Cysto on follow-up we will see the nurse to instruct on intermittent catheterization most likely Ric Souza Please note: This note has been produced using speech recognition software and may contain errors related to that system including grammar, punctuation, spelling, gender and words and phrases that may be inappropriate. documented in this encounter [facility] 11-02-2024 Evaluation note Diagnosis Onset Date Resolution Open wound of tissue overlying spine acute November 02 1:26pm Anemia chronic November 09, 2024 1:08pm DVT (deep venous thrombosis) chronic November 09, 025 1:08pm Multiple myeloma chronic November 09, 2024 1:08pm Degenerative disc disease, lumbar noneactive November 21, 2 025 2:00pm Anemia chronic December 07 2:00pm DVT (deep venous thrombosis) chronic December 07, 2024 2:00pm Multiple myeloma chronic December 072024 2:00pm Abdominal bloating acute January 04, 2025 1:01pm Anemia chronic January 04 1:01pm DVT (deep venous thrombosis) chronic January 04, 2025 1:01pm Multiple myeloma chronic January 042024 1:01pm Anemia chronic February 01, 2025 12:37pm DVT (deep venous thrombosis) chronic February 01, 2025 12 :37pm Multiple myeloma chronic February 01, 2025 12:37pm [facility] Work Phone: 1(116) 251-244501-16-2025 Evaluation note* Diagnosis Onset Date Resolution Status Admit Date Anemia chronic October 12, 2024 1:40pm DVT (deep venous thrombosis) chronic October 12, 2024 1:40pm Multiple myeloma chronic October 12, 2024 1:40pm Paraplegia inactive October 12, 2024 1:40pm Open wound of tissue overlying spine acute November 02 1:26pm Anemia chronic November 09, 2024 1:08pm DVT (deep venous thrombosis) chronic November 09, 2024 1:08pm Multiple myeloma chronic November 09, 2024 1:08pm Degenerative disc disease, lumbar noneactive November 21, 2 025 2:00pm Anemia chronic December 07 2:00pm DVT (deep venous thrombosis) chronic December 07, 2024 2:00pm Multiple myeloma chronic December 072024 2:00pm Abdominal bloating acute January 04, 2025 1:01pm Anemia chronic January 04 1:01pm DVT (deep venous thrombosis) chronic January 04, 2025 1:01pm Multiple myeloma chronic January 042024 1:01pm [facility] Work Phone: 1(902) 384-207601-16-2025 Evaluation note* Diagnosis Onset Date Resolution Status Admit Date Anemia chronic October 12, 2024 1:40pm DVT (deep venous thrombosis) chronic October 12, 2024 1:40pm Multiple myeloma chronic October 12, 2024 1:40pm Paraplegia inactive October 12, 2024 1:40pm Open wound of tissue overlying spine acute November 02 1:26pm Anemia chronic November 09, 2024 1:08pm DVT (deep venous thrombosis) chronic November 09, 2024 1:08pm Multiple myeloma chronic November 09, 2024 1:08pm Degenerative disc disease, lumbar noneactive November 21, 2 025 2:00pm Anemia chronic December 07 2:00pm DVT (deep venous thrombosis) chronic December 07, 2024 2:00pm Multiple myeloma chronic December 072024 2:00pm Abdominal bloating acute January 04, 2025 1:01pm Anemia chronic January 04 1:01pm DVT (deep venous thrombosis) chronic January 04, 2025 1:01pm Multiple myeloma chronic January 042024 1:01pm Anemia chronic February 01, 2025 12:37pm DVT (deep venous thrombosis) chronic February 01, 2025 12:37pm Multiple myeloma chronic February 01, 2025 12:37pm [facility] Work Phone: 1(941) 764-190801-10-2025 Miscellaneous Notes* Telephone Encounter - Anupama Rodriguez - 10/06/2024 4:36 PM EST [facility] returned the call, patient has been scheduled for 11/10/2024 at 10:00a.m. with Dr. Souza in [place]. Fang Rodriguez October 06, 2024 4:36 PM * Telephone Encounter - Kira Cummings - 10/06/2024 1:54 PM EST Faxed referral For James Souza For Vanegas care/removal of vanegas (almost 2 years use) RACHELE Hicks the health care person to call back to schedule Pt is in residential Referral scanned Thanks [facility] encounter Note * Telephone Encounter - Anupama Rodriguez - 10/06/2024 4:36 PM EST [facility] returned the call, patient has been scheduled for 11/10/2024 at 10:00a.m. with Dr. Souza in [place]. Fang Rodriguez October 06, 2024 4:36 PM [facility]-10[facility] Telephone encounter Note* Telephone Encounter - Kira Cummings - 10/06/2024 1:54 PM EST Faxed referral For James Souza For Vanegas care/removal of vanegas (almost 2 years use) LM to [place] the health care person to call back to schedule Pt is in residential Referral scanned Thanks [facility]12-18-2024 Evaluation note* Diagnosis Onset Date Resolution Status Admit Date Anemia chronic September 13, 2024 12:33pm DVT (deep venous thrombosis) chronic September 13, 2024 12:33pm Multiple myeloma chronic September 13, 2024 12:33pm Paraplegia inactive September 13, 2024 12:33pm Anemia chronic October 12, 2024 1:40pm DVT (deep venous thrombosis) chronic October 12, 2024 1:40pm Multiple myeloma chronic October 12, 2024 1:40pm Paraplegia inactive October 12, 2024 1:40pm Open wound of tissue overlying spine acute November 02 1:26pm Anemia chronic November 09, 2024 1:08pm DVT (deep venous thrombosis) chronic November 09, 2024 1:08pm Multiple myeloma chronic November 09, 2024 1:08pm Degenerative disc disease, lumbar noneactive November 21, 2 025 2:00pm Anemia chronic December 07 2:00pm DVT (deep venous thrombosis) chronic December 07, 2024 2:00pm Multiple myeloma chronic December 072024 2:00pm Abdominal bloating acute January 04, 2025 1:01pm Anemia chronic January 04 1:01pm DVT (deep venous thrombosis) chronic January 04, 2025 1:01pm Multiple myeloma chronic January 042024 1:01pm [facility] Work Phone: [phone] 564-363412-05-2024 Evaluation note* Diagnosis Onset Date Resolution Status Admit Date History of radiation therapy acute August 31, 2024 1:21pm Late effect of radiation chronic August 31, 2024 1:21pm Anemia chronic September 13, 2024 12:33pm DVT (deep venous thrombosis) chronic September 13, 2024 12:33pm Multiple myeloma chronic September 13, 2024 12:33pm Paraplegia inactive September 13, 2024 12:33pm Anemia chronic October 12, 2024 1:40pm DVT (deep venous thrombosis) chronic October 12, 2024 1:40pm Multiple myeloma chronic October 12, 2024 1:40pm Paraplegia inactive October 12, 2024 1:40pm Open wound of tissue overlying spine acute November 02 1:26pm Anemia chronic November 09, 2024 1:08pm DVT (deep venous thrombosis) chronic November 09, 2024 1:08pm Multiple myeloma chronic November 09, 2024 1:08pm Degenerative disc disease, lumbar noneactive November 21, 2 025 2:00pm Anemia chronic December 07 2:00pm DVT (deep venous thrombosis) chronic December 07, 2024 2:00pm Multiple myeloma chronic December 072024 2:00pm [facility] Work Phone: 1(760) 729-136211-12-2024 [facility]10-14-2024 [facility]10-14-2024 Evaluation note* Diagnosis Onset Date Resolution Status Admit Date Debility acute July 10, 2024 5:05pm Essential (primary) hypertension acute July 10 5:05pm GERD (gastroesophageal reflu x disease) acute July 10 5:05pm History of radiation therapy acute July 10, 2024 5:05pm Insomnia acute July 10, 2024 5:05pm Muscle spasm acute June 5:05pm Neuropathic pain acute July 10, 2024 5:05pm Open wound of tissue overlying spine acute July 10 5:05pm Multiple myeloma chronic July 10, 2024 5:05pm 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 resolved July 10, 2024 5:05pm Osteomyelitis of thoracic spine resolved July 10 5:05pm Paraplegia inactive July 10, 2024 5:05pm Radiation adverse effect inactive July 10, 2024 5:05pm Anemia chronic August 17, 2024 8:35am DVT (deep venous thrombosis) chronic August 17, 2024 8:35am Multiple myeloma chronic August 17, 2024 8:35am History of radiation therapy acute August 31, 2024 1:21pm Late effect of radiation chronic August 31, 2024 1:21pm Anemia chronic September 13, 2024 12:33pm DVT (deep venous thrombosis) chronic September 13, 2024 12:33pm Multiple myeloma chronic September 13, 2024 12:33pm Paraplegia inactive September 13, 2024 12:33pm Anemia chronic October 12, 2024 1:40pm DVT (deep venous thrombosis) chronic October 12, 2024 1:40pm Multiple myeloma chronic October 12, 2024 1:40pm Paraplegia inactive October 12, 2024 1:40pm Open wound of tissue overlying spine acute November 02 1:26pm Anemia chronic November 09, 2024 1:08pm DVT (deep venous thrombosis) chronic November 09, 2024 1:08pm Multiple myeloma chronic November 09, 2024 1:08pm Degenerative disc disease, lumbar noneactive November 21, 025 2:00pm [facility] Work Phone: [phone]) 345-202210-14-2024 [facility]09-18-2024 Hospital Discharge instructions* Patient Instructions* Callie Hodge RN - 06/14/2024 1:45 PM EDT Follow-up Appointments with Dr. Munoz Return Appointment in 1 week. Call [place] wound center at [phone], [facility] at [phone], or [facility] Wound center at [phone]. Follow nutritious diet including, increasing protein to 100 grams a day Avoid pressure, friction, shearing to wound area. Wound Care Instructions; Daily (Discontinue snap vac at this time) Cleanse wound with mild soap and water and pat dry. Lightly pack wounds with mesalt rope, leave tail out Apply Calcium Alginate Cover with ABD, tape to secure Dr. Alexander goode AT for wound, take as directed. Directions for [facility]fp: If wound loses suction: Remove snap back and apply wet to dry dressing until your next appointment, call wound clinic to notify of snap losing suction. Signs and symptoms of wound infection: - fever - flu-like symptoms - pus or unusual drainage - foul odor - worsening of wound - spreading redness or warmth around the wound - increased pain - increasing and/or uncontrolled blood sugar for diabetics Please call the wound center at [phone] if you are experiencing this. If we are closed and youare unable to reach us in person please go to the ER. [facility] documented in this [facility]09-18-2024 [facility] Wound Care Progress Note CHIEF COMPLAINT: Wound Care HISTORY OF PRESENT ILLNESS: The patient is a 68 y.o. male with history of multiple myeloma. Seen by wound care for non-healing surgical wound of neck area. ( Surgery was Oct 2022). Feels wound is slowly improving. 06/14/24: Currently using snap vac. States it lasted about 8 days this time. Denies constitutional symptoms. REVIEW OF SYSTEMS: Review of Systems Constitutional: Negative. Negative for chills, fatigue and fever. See HPI Respiratory: Negative. Cardiovascular: Negative. Skin: Positive for wound. Negative for color change (from typical for patient) and rash. PHYSICAL EXAM: BP 111/65 Pulse 69 Temp 37.2 ?C (99 ?F) Resp 18 Physical Exam Vitals reviewed. Constitutional: General: He is not in acute distress. Appearance: Normal appearance. He is not ill-appearing or toxic-appearing. HENT: Ears: Comments: Hearing to conversational voice is normal. Pulmonary: Effort: Pulmonary effort is normal. Breath sounds: No wheezing (No audible wheeze). Skin: General: Skin is warm. Comments: Both wounds with red tissue, sanguinous drainage. Decreased tunneling noted since last visit. Neither wound appears cellulitic. See photos and measurements. Neurological: Mental Status: He is alert and oriented to person, place, and time. Psychiatric: Thought Content: Thought content normal. Wound/Incision 03/22/24 Surgical Neck Posterior;Upper (Active) Wound Image 06/14/24 134 Site Assessment Pale;Lihue;Sloughing 06/14/24 1345 Ritika-Wound Assessment Lihue;Scarred 06/14/24 1345 Wound Length (cm) 0.5 cm 06/14/24 134 Wound Width (cm) 0.5 cm 06/14/24 134 Wound Surface Area (cm^2) 0.25 cm^2 06/14/24 134 Wound Depth (cm) 1.2 cm 06/14/241344 Wound Volume (cm^3) 0.3 cm^3 06/14/241344 Wound Healing % 98 06/14/24 134 Drainage Description Serosanguineous 06/14/24 134 Odor None 06/14/241344 Drainage Amount Moderate 06/14/24 134 Treatments Cleansed 06/14/24 134 Primary Dressing Mesalt rope;Calcium alginate;Other (Comment) 06/14/24 134 Secondary Dressing 4x4 gauze;ABD 06/14/24 1345 Secured with Medfix tape 06/14/24 134 Periwound Dressing Other 04/26/24 1600 Dressing Status Clean, dry & intact;New dressing 06/14/24 134 Tunneling 1.6 cm 06/14/241344 Tunneling Clock Position of Wound 10 06/14/24 1345 Wound/Incision 03/22/24 Surgical Back (Active) Wound Image 06/14/24 135 Site Assessment Pale;Sloughing 06/14/24 135 Ritika-Wound Assessment Lihue 06/14/24 135 Wound Length (cm) 0.9 cm 06/14/24 135 Wound Width (cm) 0.8 cm 06/14/241355 Wound Surface Area (cm^2) 0.72 cm^2 06/14/241355 Wound Depth (cm) 1 cm 06/14/241355 Wound Volume (cm^3) 0.72 cm^3 06/14/24 135 Wound Healing % -1100 06/14/24 135 Drainage Description Serosanguineous 06/14/24 135 Odor None 06/14/24 1356 Drainage Amount Moderate 06/14/24 1356 Treatments Cleansed 06/14/24 1356 Primary Dressing Mesalt rope;Calcium alginate;Other (Comment) 06/14/24 1356 Secondary Dressing ABD 06/14/24 1356 Secured with Medfix tape 06/14/24 1356 Periwound Dressing Other 04/26/24 1505 Dressing Status Clean, dry & intact;New dressing 06/14/24 1356 Wound Bed Granulation (%) 100 % 03/22/24 1041 Tunneling 2.1 cm 06/14/24 1356 Tunneling Clock Position of Wound 11 06/14/24 1356 1. Disruption of external operation (surgical) wound, not elsewhere classified, sequela 2. 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 3. Multiple myeloma, remission status unspecified (HCC) Pt ed, reassure We'll hold snap for a week. Back to mesalt rope. If any issues or concerns, he will call for earlier appointment or go to ED. Reviewed s/s infection Reviewed protein/nutrition Reviewed activity Recheck one wk, sooner prn Pt agrees with plan. PLAN: Patient examined and evaluated. Patient understands all that has been explained and wishes to proceed with current treatment. Patient understands all risks, benefits, procedures, ritika-operative management, and possible complications. All questions answered and no guarantees made or implied. Treatment: Please see attached Discharge Instructions [facility]09-09-2024 Hospital Discharge instructions* Patient Instructions* Callie Hodge RN - 06/05/2024 10:30 AM EDT Follow-up Appointments with Dr. Munoz Return Appointment in 1 week. Call [place] wound center at [phone], [facility] at [phone], or [facility] Wound center at [phone]. Follow nutritious diet including, increasing protein to 100 grams a day Avoid pressure, friction, shearing to wound area. Wound Care Instructions; Upper back Dressing change to consist of: (Weekly at Wound Center) - Remove old dressing and discard per policy. - Cleanse with normal saline., pat dry - Apply skin prep to ritika-wound. - Apply dressing from NPWT kit, apply blue foam to wound bed. - Set cycle on NPWT pump to suction - Set pressure on NPWT pump (Using large canister) - Change dressing weekly shower or tub bath. Directions for [facility]: If wound loses suction: Remove snap back and apply wet to dry dressing until your next appointment, call wound clinic to notify of snap losing suction. Signs and symptoms of wound infection: - fever - flu-like symptoms - pus or unusual drainage - foul odor - worsening of wound - spreading redness or warmth around the wound - increased pain - increasing and/or uncontrolled blood sugar for diabetics Please call the wound center at [phone] if you are experiencing this. If we are closed and youare unable to reach us in person please go to the ER. [facility] documented in this [facility]09-09-2024 [facility] Wound Care Progress Note CHIEF COMPLAINT: Wound Care HISTORY OF PRESENT ILLNESS: The patient is a 68 y.o. male with history of multiple myeloma. Seen by wound care for non-healing surgical wound of neck area. ( Surgery was Oct 2022). Feels wound is slowly improving. Currently using snap vac. Denies constitutional symptoms. States he did well with snap over past 12 days. REVIEW OF SYSTEMS: Review of Systems Constitutional: Negative. Negative for chills, fatigue and fever. See HPI Respiratory: Negative. Cardiovascular: Negative. Skin: Positive for wound. Negative for color change (from typical for patient) and rash. PHYSICAL EXAM: BP 112/63 Pulse 64 Temp 36.9 ?C (98.4 ?F) Resp 18 Physical Exam Vitals reviewed. Constitutional: General: He is not in acute distress. Appearance: Normal appearance. He is not ill-appearing or toxic-appearing. HENT: Ears: Comments: Hearing to conversational voice is normal. Pulmonary: Effort: Pulmonary effort is normal. Breath sounds: No wheezing (No audible wheeze). Skin: General: Skin is warm. Comments: Both wounds with red tissue, sanguinous drainage. Decreased tunneling noted since last visit. Neither wound appears cellulitic. See photos and measurements. Neurological: Mental Status: He is alert and oriented to person, place, and time. Psychiatric: Thought Content: Thought content normal. Wound/Incision 03/22/24 Surgical Neck Posterior;Upper (Active) Wound Image 06/05/24 1036 Site Assessment Bleeding 06/05/24 1036 Ritika-Wound Assessment Moist ;Lihue;Scarred 06/05/24 1036 Wound Length (cm) 0.7 cm 06/05/24 1036 Wound Width (cm) 0.7 cm 06/05/24 1036 Wound Surface Area (cm^2) 0.49 cm^2 06/05/24 1036 Wound Depth (cm) 1.1 cm 06/05/24 1036 Wound Volume (cm^3) 0.539 cm^3 06/05/24 1036 Wound Healing % 97 06/05/24 1036 Drainage Description Sanguineous 06/05/24 1036 Odor None 06/05/24 1036 Drainage Amount Moderate 06/05/24 1036 Treatments Cleansed 06/05/24 1036 Primary Dressing Other (Comment) 06/05/24 1036 Secondary Dressing ABD 03/29/24 1400 Secured with Medfix tape 03/29/24 1400 Periwound Dressing Other 04/26/24 1600 Dressing Status New dressing;Clean, dry & intact 06/05/24 1036 Tunneling 1.5 cm 06/05/24 1036 Tunneling Clock Position of Wound 10 06/05/24 1036 Wound/Incision 03/22/24 Surgical Back (Active) Wound Image 06/05/24 1045 Site Assessment Bleeding 06/05/24 1045 Ritika-Wound Assessment Moist ;Lihue 06/05/24 1045 Wound Length (cm) 0.9 cm 06/05/24 1045 Wound Width (cm) 0.8 cm 06/05/24 1045 Wound Surface Area (cm^2) 0.72 cm^2 06/05/24 1045 Wound Depth (cm) 1 cm 06/05/24 1045 Wound Volume (cm^3) 0.72 cm^3 06/05/24 1045 Wound Healing % -1100 06/05/24 1045 Drainage Description Sanguineous 06/05/24 1045 Odor None 06/05/24 1045 Drainage Amount Moderate 06/05/24 1045 Treatments Cleansed 06/05/24 1045 Primary Dressing Other (Comment) 06/05/24 1045 Secondary Dressing ABD 03/29/24 1400 Secured with Medfix tape 03/29/24 1400 Periwound Dressing Other 04/26/24 1505 Dressing Status Clean, dry & intact;New dressing 06/05/24 1045 Wound Bed Granulation (%) 100 % 03/22/24 1041 Tunneling 2.1 cm 06/05/24 1045 Tunneling Clock Position of Wound 11 06/05/24 1045 Negative Pressure Wound Therapy Back Posterior (Active) Unit Type SNAP 06/05/24 1200 Dressing Type Other (Comment) 06/05/24 1200 Number of Foam Pieces Used 1 06/05/24 1200 Cycle Continuous 06/05/24 1200 Target Pressure (mmHg) Other (Comment) 06/05/24 1200 Canister Changed Yes 06/05/24 1200 $ Neg Pressure Wound Therapy Charges < or equal 50 scm non-DME 06/05/24 1200 1. 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 2. Disruption of external operation (surgical) wound, not elsewhere classified, sequela 3. Multiple myeloma, remission status unspecified (HCC) Pt ed, reassure Discussed options with patient. He is doing well with snap, but transportation is difficult. He would like to go longer with snap, so that he can have less visits and less transportation issue. The only providers available are Wednesday and Wednesday at this clinic. Continue snap. He will observe. If any issues or concerns, he will call for earlier appointment or go to ED. Reviewed s/s infection Reviewed protein/nutrition Reviewed activity Recheck one wk, sooner prn Pt agrees with plan. PLAN: Patient examined and evaluated. Patient understands all that has been explained and wishes to proceed with current treatment. Patient understands all risks, benefits, procedures, riitka-operative management, and possible complications. All questions answered and no guarantees made or implied. Treatment: Please see attached Discharge Instructions [facility] [id number] History of Present illness Narrative* Mickey Munoz DO - 05/24/2024 1:30 PM EDT Images from the original note were not included. [facility] Wound Care Progress Note CHIEF COMPLAINT: Wound Care HISTORY OF PRESENT ILLNESS: The patient is a 68 y.o. male with history of multiple myeloma. Seen by wound care for non-healing surgical wound of neck area. ( Surgery was Oct 2022). Feels wound is slowly improving. Currently using snap vac. Denies constitutional symptoms. States he has quite a bit of trouble getting rides to wound center. His facility has limited resource in this regard and he has to pay out of pocket. Today, no drivers were available, so a friend hadto take off work to drive him to this appointment. REVIEW OF SYSTEMS: Review of Systems Constitutional: Negative. Negative for chills, fatigue and fever. See HPI Respiratory: Negative. Cardiovascular: Negative. Skin: Positive for wound. Negative for color change (from typical for patient) and rash. PHYSICAL EXAM: BP 103/59 Pulse 80 Temp 37.2 C (98.9 F) Resp 18 Physical Exam Vitals reviewed. Constitutional: General: He is not in acute distress. Appearance: Normal appearance. He is not ill-appearing or toxic-appearing. HENT: Ears: Comments: Hearing to conversational voice is normal. Pulmonary: Effort: Pulmonary effort is normal. Breath sounds: No wheezing (No audible wheeze). Skin: General: Skin is warm. Comments: Both wounds with red tissue, sanguinous drainage. Decreased tunneling noted since last week. Neither wound appears cellulitic. See photos and measurements. Neurological: Mental Status: He is alert and oriented to person, place, and time. Psychiatric: Thought Content: Thought content normal. Wound/Incision 03/22/24 Surgical Neck Posterior;Upper (Active) Wound Image 05/24/24 1322 Site Assessment Bleeding 05/24/24 1322 Ritika-Wound Assessment Scarred 05/24/24 1322 Wound Length (cm) 0.6 cm 05/24/24 1322 Wound Width (cm) 0.6 cm 05/24/24 1322 Wound Surface Area (cm^2) 0.36 cm^2 05/24/24 1322 Wound Depth (cm) 1.2 cm 05/24/24 1322 Wound Volume (cm^3) 0.432 cm^3 05/24/24 1322 Wound Healing % 97 05/24/24 1322 Drainage Description Sanguineous 05/24/24 1322 Odor None 05/24/24 1322 Drainage Amount Moderate 05/24/24 1322 Treatments Cleansed 05/24/24 1322 Primary Dressing Other (Comment) 04/26/24 1600 Secondary Dressing ABD 03/29/24 1400 Secured with Medfix tape 03/29/24 1400 Periwound Dressing Other 04/26/24 1600 Dressing Status Clean, dry & intact 04/26/24 1600 Tunneling 1.5 cm 05/24/24 1322 Tunneling Clock Position of Wound 10 05/24/24 1322 Wound/Incision 03/22/24 Surgical Back (Active) Wound Image 05/24/24 1324 Site Assessment Sloughing;Bleeding 05/24/24 1324 Ritika-Wound Assessment Lihue 05/24/24 1324 Wound Length (cm) 1 cm 05/24/24 1324 Wound Width (cm) 0.8 cm 05/24/24 1324 Wound Surface Area (cm^2) 0.8 cm^2 05/24/24 1324 Wound Depth (cm) 1.5 cm 05/24/24 1324 Wound Volume (cm^3) 1.2 cm^3 05/24/24 1324 Wound Healing % -1900 05/24/24 1324 Drainage Description Sanguineous 05/24/24 1324 Odor None 05/24/24 1324 Drainage Amount Moderate 05/24/24 1324 Treatments Cleansed 05/24/24 1324 Primary Dressing Other (Comment) 04/26/24 1505 Secondary Dressing ABD 03/29/24 1400 Secured with Medfix tape 03/29/24 1400 Periwound Dressing Other 04/26/24 1505 Dressing Status Clean, dry & intact 04/26/24 1505 Wound Bed Granulation (%) 100 % 03/22/24 1041 Tunneling 2.3 cm 05/24/24 1324 Tunneling Clock Position of Wound 11 05/24/24 1324 Negative Pressure Wound Therapy Back Posterior (Active) Unit Type SNAP 05/17/24 1326 Dressing Type Other (Comment) 05/17/24 1326 Number of Foam Pieces Used 1 05/17/24 1326 Cycle Continuous 05/17/24 1326 Target Pressure (mmHg) Other (Comment) 05/17/24 1326 Canister Changed Yes 05/17/24 1326 $ Neg Pressure Wound Therapy Charges < or equal 50 scm non-DME 05/17/24 1326 1. Disruption of external operation (surgical) wound, not elsewhere classified, sequela 2. 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 3. Multiple myeloma, remission status unspecified (HCC) Pt ed, reassure Discussed options with patient. He is doing well with snap, but transportation is difficult. He would like to go longer with snap, so that he can have less visits and less transportation issue. The only providers available are Wednesday and Wednesday at this clinic. Continue snap with large cannister. He will observe. If any issues or concerns, he will call for earlier appointment or go to ED. Reviewed s/s infection Reviewed protein/nutrition Reviewed activity Recheck one wk, sooner prn Pt agrees with plan. PLAN: Patient examined and evaluated. Patient understands all that has been explained and wishes to proceed with current treatment. Patient understands all risks, benefits, procedures, ritika- operative management, and possible complications. All questions answered and no guarantees made or implied. Treatment: Please see attached Discharge Instructions documented in this [facility]08-28-2024 Hospital Discharge instructions* Patient Instructions* Callie Hodge RN - 05/24/2024 1:30 PM EDT Follow-up Appointments with Dr. Munoz Return Appointment in 1 week. Call [place] wound center at [phone], [facility] [place] [facility] at [phone], or [facility] Wound center at [phone]. Follow nutritious diet including, increasing protein to 100 grams a day Avoid pressure, friction, shearing to wound area. Wound Care Instructions; Upper back Dressing change to consist of: (Weekly at Wound Center) - Remove old dressing and discard per policy. - Cleanse with normal saline., pat dry - Apply skin prep to ritika-wound. - Apply dressing from NPWT kit, apply blue foam to wound bed. - Set cycle on NPWT pump to suction - Set pressure on NPWT pump (Using large canister) - Change dressing weekly shower or tub bath. Directions for [facility]: If wound loses suction: Remove snap back and apply wet to dry dressing until your next appointment, call wound clinic to notify of snap losing suction. Signs and symptoms of wound infection: - fever - flu-like symptoms - pus or unusual drainage - foul odor - worsening of wound - spreading redness or warmth around the wound - increased pain - increasing and/or uncontrolled blood sugar for diabetics Please call the wound center at [phone] if you are experiencing this. If we are closed and youare unable to reach us in person please go to the ER. [facility] documented in this [facility]08-28-2024 [facility] Wound Care Progress Note CHIEF COMPLAINT: Wound Care HISTORY OF PRESENT ILLNESS: The patient is a 68 y.o. male with history of multiple myeloma. Seen by wound care for non-healing surgical wound of neck area. ( Surgery was Oct 2022). Feels wound is slowly improving. Currently using snap vac. Denies constitutional symptoms. States he has quite a bit of trouble getting rides to wound center. His facility has limited resource in this regard and he has to pay out of pocket. Today, no drivers were available, so a friend had to take off work to drive him to this appointment. REVIEW OF SYSTEMS: Review of Systems Constitutional: Negative. Negative for chills, fatigue and fever. See HPI Respiratory: Negative. Cardiovascular: Negative. Skin: Positive for wound. Negative for color change (from typical for patient) and rash. PHYSICAL EXAM: BP 103/59 Pulse 80 Temp 37.2 ?C (98.9 ?F) Resp 18 Physical Exam Vitals reviewed. Constitutional: General: He is not in acute distress. Appearance: Normal appearance. He is not ill-appearing or toxic-appearing. HENT: Ears: Comments: Hearing to conversational voice is normal. Pulmonary: Effort: Pulmonary effort is normal. Breath sounds: No wheezing (No audible wheeze). Skin: General: Skin is warm. Comments: Both wounds with red tissue, sanguinous drainage. Decreased tunneling noted since last week. Neither wound appears cellulitic. See photos and measurements. Neurological: Mental Status: He is alert and oriented to person, place, and time. Psychiatric: Thought Content: Thought content normal. Wound/Incision 03/22/24 Surgical Neck Posterior;Upper (Active) Wound Image 05/24/24 1322 Site Assessment Bleeding 05/24/24 1322 Ritika-Wound Assessment Scarred 05/24/24 1322 Wound Length (cm) 0.6 cm 05/24/24 1322 Wound Width (cm) 0.6 cm 05/24/24 1322 Wound Surface Area (cm^2) 0.36 cm^2 05/24/24 1322 Wound Depth (cm) 1.2 cm 05/24/24 1322 Wound Volume (cm^3) 0.432 cm^3 05/24/24 1322 Wound Healing % 97 05/24/24 1322 Drainage Description Sanguineous 05/24/24 1322 Odor None 05/24/24 1322 Drainage Amount Moderate 05/24/24 1322 Treatments Cleansed 05/24/24 1322 Primary Dressing Other (Comment) 04/26/24 1600 Secondary Dressing ABD 03/29/24 1400 Secured with Medfix tape 03/29/24 1400 Periwound Dressing Other 04/26/24 1600 Dressing Status Clean, dry & intact 04/26/24 1600 Tunneling 1.5 cm 05/24/24 1322 Tunneling Clock Position of Wound 10 05/24/24 1322 Wound/Incision 03/22/24 Surgical Back (Active) Wound Image 05/24/24 1324 Site Assessment Sloughing;Bleeding 05/24/24 1324 Ritika-Wound Assessment Lihue 05/24/24 1324 Wound Length (cm) 1 cm 05/24/24 1324 Wound Width (cm) 0.8 cm 05/24/24 1324 Wound Surface Area (cm^2) 0.8 cm^2 05/24/24 1324 Wound Depth (cm) 1.5 cm 05/24/24 1324 Wound Volume (cm^3) 1.2 cm^3 05/24/24 1324 Wound Healing % -1900 05/24/24 1324 Drainage Description Sanguineous 05/24/24 1324 Odor None 05/24/24 1324 Drainage Amount Moderate 05/24/24 1324 Treatments Cleansed 05/24/24 1324 Primary Dressing Other (Comment) 04/26/24 1505 Secondary Dressing ABD 03/29/24 1400 Secured with Medfix tape 03/29/24 1400 Periwound Dressing Other 04/26/24 1505 Dressing Status Clean, dry & intact 04/26/24 1505 Wound Bed Granulation (%) 100 % 03/22/24 1041 Tunneling 2.3 cm 05/24/24 1324 Tunneling Clock Position of Wound 11 05/24/24 1324 Negative Pressure Wound Therapy Back Posterior (Active) Unit Type SNAP 05/17/24 1326 Dressing Type Other (Comment) 05/17/24 1326 Number of Foam Pieces Used 1 05/17/24 1326 Cycle Continuous 05/17/24 1326 Target Pressure (mmHg) Other (Comment) 05/17/24 1326 Canister Changed Yes 05/17/24 1326 $ Neg Pressure Wound Therapy Charges < or equal 50 scm non-DME 05/17/24 1326 1. Disruption of external operation (surgical) wound, not elsewhere classified, sequela 2. 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 3. Multiple myeloma, remission status unspecified (HCC) Pt ed, reassure Discussed options with patient. He is doing well with snap, but transportation is difficult. He would like to go longer with snap, so that he can have less visits and less transportation issue. The only providers available are Wednesday and Wednesday at this clinic. Continue snap with large cannister. He will observe. If any issues or concerns, he will call for earlier appointment or go to ED. Reviewed s/s infection Reviewed protein/nutrition Reviewed activity Recheck one wk, sooner prn Pt agrees with plan. PLAN: Patient examined and evaluated. Patient understands all that has been explained and wishes to proceed with current treatment. Patient understands all risks, benefits, procedures, ritika-operative management, and possible complications. All questions answered and no guarantees made or implied. Treatment: (more content not included)...[facility]08-21-2024 History of Present illness Narrative* Mickey Munoz DO - 05/17/2024 12:45 PM EDT Images from the original note were not included. [facility] Wound Care Progress Note CHIEF COMPLAINT: Wound Care HISTORY OF PRESENT ILLNESS: The patient is a 68 y.o. male with history of multiple myeloma. Seen by wound care for non-healing surgical wound of neck area. ( Surgery was Oct 2022). Notes improvement. Less drainage. Currently using snap vac. Denies constitutional symptoms. Pain <1/10. REVIEW OF SYSTEMS: Review of Systems Constitutional: Negative. Negative for chills, fatigue and fever. See HPI Respiratory: Negative. Cardiovascular: Negative. Skin: Positive for wound. Negative for color change (from typical for patient) and rash. PHYSICAL EXAM: BP 118/68 (BP Location: Left arm, Patient Position: Sitting) Pulse 54 Temp 36.6 C (97.8 F) (Temporal) Resp 18 Physical Exam Vitals reviewed. Constitutional: General: He is not in acute distress. Appearance: Normal appearance. He is not ill-appearing or toxic-appearing. HENT: Ears: Comments: Hearing to conversational voice is normal. Pulmonary: Effort: Pulmonary effort is normal. Breath sounds: No wheezing (No audible wheeze). Skin: General: Skin is warm. Comments: Both wounds with red tissue, sanguinous drainage. Decreased tunneling noted since last week. Neither wound appears cellulitic. See photos and measurements. Neurological: Mental Status: He is alert and oriented to person, place, and time. Psychiatric: Thought Content: Thought content normal. Wound/Incision 03/22/24 Surgical Neck Posterior;Upper (Active) Wound Image 05/17/24 1323 Site Assessment Bleeding;Granulation;Red 05/17/24 1323 Ritika-Wound Assessment Intact;Lihue 05/17/24 1323 Wound Length (cm) 0.9 cm 05/17/24 1323 Wound Width (cm) 0.6 cm 05/17/24 1323 Wound Surface Area (cm^2) 0.54 cm^2 05/17/24 1323 Wound Depth (cm) 1.4 cm 05/17/24 1323 Wound Volume (cm^3) 0.756 cm^3 05/17/24 1323 Wound Healing % 95 05/17/24 1323 Drainage Description Serosanguineous 05/17/24 1323 Odor None 05/17/24 1323 Drainage Amount Moderate 05/17/24 1323 Treatments Cleansed 05/17/24 1323 Primary Dressing Other (Comment) 04/26/24 1600 Secondary Dressing ABD 03/29/24 1400 Secured with Medfix tape 03/29/24 1400 Periwound Dressing Other 04/26/24 1600 Dressing Status Clean, dry & intact 04/26/24 1600 Tunneling 1.5 cm 05/17/24 1323 Tunneling Clock Position of Wound 10 05/17/24 1323 Wound/Incision 03/22/24 Surgical Back (Active) Wound Image 05/17/24 1326 Site Assessment Bleeding;Granulation;Red 05/17/24 1326 Ritika-Wound Assessment Intact;Lihue 05/17/24 1326 Wound Length (cm) 0.9 cm 05/17/24 1326 Wound Width (cm) 1 cm 05/17/24 1326 Wound Surface Area (cm^2) 0.9 cm^2 05/17/24 1326 Wound Depth (cm) 1.5 cm 05/17/24 1326 Wound Volume (cm^3) 1.35 cm^3 05/17/24 1326 Wound Healing % -2150 05/17/24 1326 Drainage Description Serosanguineous 05/17/24 1326 Odor None 05/17/24 1326 Drainage Amount Moderate 05/17/24 1326 Treatments Cleansed 05/17/24 1326 Primary Dressing Other (Comment) 04/26/24 1505 Secondary Dressing ABD 03/29/24 1400 Secured with Medfix tape 03/29/24 1400 Periwound Dressing Other 04/26/24 1505 Dressing Status Clean, dry & intact 04/26/24 1505 Wound Bed Granulation (%) 100 % 03/22/24 1041 Tunneling 2.3 cm 05/17/24 1326 Tunneling Clock Position of Wound 11 05/17/24 1326 Negative Pressure Wound Therapy Back Posterior (Active) Unit Type SNAP 05/17/24 1326 Dressing Type Other (Comment) 05/17/24 1326 Number of Foam Pieces Used 1 05/17/24 1326 Cycle Continuous 05/17/24 1326 Target Pressure (mmHg) Other (Comment) 05/17/24 1326 Canister Changed Yes 05/17/24 1326 $ Neg Pressure Wound Therapy Charges < or equal 50 scm non-DME 05/17/24 1326 1. Disruption of external operation (surgical) wound, not elsewhere classified, sequela 2. 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 3. Multiple myeloma, remission status unspecified (HCC) Pt ed, reassure Dr. Munoz consulted Continue snap with regular cannister Reviewed s/s infection Reviewed protein/nutrition Reviewed activity Recheck one wk, sooner prn Pt agrees with plan. PLAN: Patient examined and evaluated. Patient understands all that has been explained and wishes to proceed with current treatment. Patient understands all risks, benefits, procedures, ritika- operative management, and possible complications. All questions answered and no guarantees made or implied. Treatment: Please see attached Discharge Instructions documented in this [facility]08-21-2024 Hospital Discharge instructions* Patient Instructions* Callie Hodge RN - 05/17/2024 12:45 PM EDT Follow-up Appointments with Dr. Munoz Return Appointment in 1 week. Call [place] wound center at [phone], [facility] at [phone], or [facility]ound center at [phone]. Follow nutritious diet including, increasing protein to 100 grams a day Avoid pressure, friction, shearing to wound area. Wound Care Instructions; Upper back Dressing change to consist of: (Weekly at Wound Center) - Remove old dressing and discard per policy. - Cleanse with normal saline., pat dry - Apply skin prep to ritika-wound. - Apply dressing from NPWT kit, apply blue foam to wound bed. - Set cycle on NPWT pump to suction - Set pressure on NPWT pump (Using large canister) - Change dressing weekly shower or tub bath. Directions for [facility]: If wound loses suction: Remove snap back and apply wet to dry dressing until your next appointment. Signs and symptoms of wound infection: - fever - flu-like symptoms - pus or unusual drainage - foul odor - worsening of wound - spreading redness or warmth around the wound - increased pain - increasing and/or uncontrolled blood sugar for diabetics Please call the wound center at [phone] if you are experiencing this. If we are closed and youare unable to reach us in person please go to the ER. [facility] documented in this [facility]08-21-2024 Hospital Discharge instructions* Patient Instructions* Callie Hodge RN - 05/17/2024 12:45 PM EDT Follow-up Appointments with Dr. Munoz Return Appointment in 1 week. Call [place] wound center at [phone], [facility] at [phone], or [facility]ound center at [phone]. Follow nutritious diet including, increasing protein to 100 grams a day Avoid pressure, friction, shearing to wound area. Wound Care Instructions; Upper back Dressing change to consist of: (Weekly at Wound Center) - Remove old dressing and discard per policy. - Cleanse with normal saline., pat dry - Apply skin prep to ritika-wound. - Apply dressing from NPWT kit, apply blue foam to wound bed. - Set cycle on NPWT pump to suction - Set pressure on NPWT pump (Using large canister) - Change dressing weekly shower or tub bath. Directions for [facility]: If wound loses suction: Remove snap back and apply wet to dry dressing until your next appointment. Signs and symptoms of wound infection: - fever - flu-like symptoms - pus or unusual drainage - foul odor - worsening of wound - spreading redness or warmth around the wound - increased pain - increasing and/or uncontrolled blood sugar for diabetics Please call the wound center at [phone] if you are experiencing this. If we are closed and youare unable to reach us in person please go to the ER. [facility] documented in this [facility]08-21-2024 Miscellaneous Notes* Addendum Note - Sherry Stubbs RN - 05/17/2024 12:45 PM EDTEncounter addended by: Sherry Stubbs RN on: 05/24/2024 3:48 PM Actions taken: Charge Capture section accepted documented in this [facility]08-21-2024 Note* Addendum Note - Sherry Stubbs RN - 05/17/2024 12:45 PM EDTEncounter addended by: Sherry Stubbs RN on: 05/24/2024 3:48 PM Actions taken: Charge Capture section accepted Freddy [id number] [facility] Wound Care Progress Note CHIEF COMPLAINT: Wound Care HISTORY OF PRESENT ILLNESS: The patient is a 68 y.o. male with history of multiple myeloma. Seen by wound care for non-healing surgical wound of neck area. ( Surgery was Oct 2022). Notes improvement. Less drainage. Currently using snap vac. Denies constitutional symptoms. Pain <1/10. REVIEW OF SYSTEMS: Review of Systems Constitutional: Negative. Negative for chills, fatigue and fever. See HPI Respiratory: Negative. Cardiovascular: Negative. Skin: Positive for wound. Negative for color change (from typical for patient) and rash. PHYSICAL EXAM: BP 118/68 (BP Location: Left arm, Patient Position: Sitting) Pulse 54 Temp 36.6 ?C (97.8 ?F) (Temporal) Resp 18 Physical Exam Vitals reviewed. Constitutional: General: He is not in acute distress. Appearance: Normal appearance. He is not ill-appearing or toxic-appearing. HENT: Ears: Comments: Hearing to conversational voice is normal. Pulmonary: Effort: Pulmonary effort is normal. Breath sounds: No wheezing (No audible wheeze). Skin: General: Skin is warm. Comments: Both wounds with red tissue, sanguinous drainage. Decreased tunneling noted since last week. Neither wound appears cellulitic. See photos and measurements. Neurological: Mental Status: He is alert and oriented to person, place, and time. Psychiatric: Thought Content: Thought content normal. Wound/Incision 03/22/24 Surgical Neck Posterior;Upper (Active) Wound Image 05/17/24 1323 Site Assessment Bleeding;Granulation;Red 05/17/24 1323 Ritika-Wound Assessment Intact;Lihue 05/17/24 1323 Wound Length (cm) 0.9 cm 05/17/24 1323 Wound Width (cm) 0.6 cm 05/17/24 1323 Wound Surface Area (cm^2) 0.54 cm^2 05/17/24 1323 Wound Depth (cm) 1.4 cm 05/17/24 1323 Wound Volume (cm^3) 0.756 cm^3 05/17/24 1323 Wound Healing % 95 05/17/24 1323 Drainage Description Serosanguineous 05/17/24 1323 Odor None 05/17/24 1323 Drainage Amount Moderate 05/17/24 1323 Treatments Cleansed 05/17/24 1323 Primary Dressing Other (Comment) 04/26/24 1600 Secondary Dressing ABD 03/29/24 1400 Secured with Medfix tape 03/29/24 1400 Periwound Dressing Other 04/26/24 1600 Dressing Status Clean, dry & intact 04/26/24 1600 Tunneling 1.5 cm 05/17/24 1323 Tunneling Clock Position of Wound 10 05/17/24 1323 Wound/Incision 03/22/24 Surgical Back (Active) Wound Image 05/17/24 1326 Site Assessment Bleeding;Granulation;Red 05/17/24 132 Ritika-Wound Assessment Intact;Lihue 05/17/24 1326 Wound Length (cm) 0.9 cm 05/17/24 1326 Wound Width (cm) 1 cm 05/17/24 1326 Wound Surface Area (cm^2) 0.9 cm^2 05/17/24 1326 Wound Depth (cm) 1.5 cm 05/17/24 1326 Wound Volume (cm^3) 1.35 cm^3 05/17/24 1326 Wound Healing % -2150 05/17/24 1326 Drainage Description Serosanguineous 05/17/24 1326 Odor None 05/17/24 1326 Drainage Amount Moderate 05/17/24 1326 Treatments Cleansed 05/17/24 1326 Primary Dressing Other (Comment) 04/26/24 1505 Secondary Dressing ABD 03/29/24 1400 Secured with Medfix tape 03/29/24 1400 Periwound Dressing Other 04/26/24 1505 Dressing Status Clean, dry & intact 04/26/24 1505 Wound Bed Granulation (%) 100 % 03/22/24 1041 Tunneling 2.3 cm 05/17/24 1326 Tunneling Clock Position of Wound 11 05/17/24 1326 Negative Pressure Wound Therapy Back Posterior (Active) Unit Type SNAP 05/17/24 1326 Dressing Type Other (Comment) 05/17/24 1326 Number of Foam Pieces Used 1 05/17/24 1326 Cycle Continuous 05/17/24 1326 Target Pressure (mmHg) Other (Comment) 05/17/24 1326 Canister Changed Yes 05/17/24 1326 $ Neg Pressure Wound Therapy Charges < or equal 50 scm non-DME 05/17/24 1326 1. Disruption of external operation (surgical) wound, not elsewhere classified, sequela 2. 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 3. Multiple myeloma, remission status unspecified (HCC) Pt ed, reassure Dr. Munoz consulted Continue snap with regular cannister Reviewed s/s infection Reviewed protein/nutrition Reviewed activity Recheck one wk, sooner prn Pt agrees with plan. PLAN: Patient examined and evaluated. Patient understands all that has been explained and wishes to proceed with current treatment. Patient understands all risks, benefits, procedures, ritika-operative management, and possible complications. All questions answered and no guarantees made or implied. Treatment: Please see attached Discharge Instructions [facility]08-21-2024 NoteEncounter addended by: Sherry Stubbs RN on: 05/24/2024 3:48 PM Actions taken: Charge Capture section [facility]08-12-2024 History of Present illness Narrative* Leannasuzette Osborne, PUBLICITY EXPERT - [employer]OCK [employer]ER - 05/08/2024 10:30 AM EDT Images from the original note were not included. [facility] Wound Care Progress Note CHIEF COMPLAINT: Wound Care HISTORY OF PRESENT ILLNESS: The patient is a 68 y.o. male with history of multiple myeloma. Seen by wound care for non-healing surgical wound of neck area. ( Surgery was Oct 2022). Notes improvement. Currently using snap vac. Had changed to smaller canister due to decreased drainage at last visit. When snap vac removed today,increased drainage noted in tube and at site of dressing. Denies constitutional symptoms. Pain <1 /10. REVIEW OF SYSTEMS: Review of Systems Constitutional: Negative. Negative for chills, fatigue and fever. See HPI Respiratory: Negative. Cardiovascular: Negative. Skin: Positive for wound. Negative for color change (from typical for patient) and rash. PHYSICAL EXAM: BP 99/59 (BP Location: Right arm, Patient Position: Sitting, BP Cuff Size: Adult) Pulse 84 Temp36.8 C (98.3 F) (Temporal) Resp 18 Physical Exam Vitals reviewed. Constitutional: General: He is not in acute distress. Appearance: Normal appearance. He is not ill-appearing or toxic-appearing. HENT: Ears: Comments: Hearing to conversational voice is normal. Pulmonary: Effort: Pulmonary effort is normal. Breath sounds: No wheezing (No audible wheeze). Skin: General: Skin is warm. Comments: Both wounds with red tissue, sanguinous drainage. Increased tunneling noted since last week. Neither wound appears cellulitic. See photos and measurements. Neurological: Mental Status: He is alert and oriented to person, place, and time. Psychiatric: Thought Content: Thought content normal. Wound/Incision 03/22/24 Surgical Neck Posterior;Upper (Active) Wound Image 05/08/24 1037 Site Assessment Granulation;Red;Bleeding 05/08/24 1037 Ritika-Wound Assessment Intact;Excoriated 05/08/24 1037 Wound Length (cm) 0.9 cm 05/08/24 1037 Wound Width (cm) 0.7 cm 05/08/24 1037 Wound Surface Area (cm^2) 0.63 cm^2 05/08/24 1037 Wound Depth (cm) 1.1 cm 05/08/24 1037 Wound Volume (cm^3) 0.693 cm^3 05/08/24 1037 Wound Healing % 96 05/08/24 1037 Drainage Description Serosanguineous 05/08/24 1037 Odor None 05/08/24 1037 Drainage Amount Large 05/08/24 1037 Treatments Cleansed 05/08/24 1037 Primary Dressing Other (Comment) 04/26/24 1600 Secondary Dressing ABD 03/29/24 1400 Secured with Medfix tape 03/29/24 1400 Periwound Dressing Other 04/26/24 1600 Dressing Status Clean, dry & intact 04/26/24 1600 Tunneling 2.1 cm 05/08/24 1039 Tunneling Clock Position of Wound 10 05/08/24 1039 Wound/Incision 03/22/24 Surgical Back (Active) Wound Image 05/08/24 1039 Site Assessment Bleeding;Red 05/08/24 1039 Ritika-Wound Assessment Intact;Excoriated 05/08/24 1039 Wound Length (cm) 1.3 cm 05/08/24 1039 Wound Width (cm) 1.4 cm 05/08/24 1039 Wound Surface Area (cm^2) 1.82 cm^2 05/08/24 1039 Wound Depth (cm) 1.9 cm 05/08/24 1039 Wound Volume (cm^3) 3.458 cm^3 05/08/24 1039 Wound Healing % -5663 05/08/24 1039 Drainage Description Serosanguineous 05/08/24 1039 Odor None 05/08/24 1039 Drainage Amount Copious 05/08/24 1039 Treatments Cleansed 05/08/24 1039 Primary Dressing Other (Comment) 04/26/24 1505 Secondary Dressing ABD 03/29/24 1400 Secured with Medfix tape 03/29/24 1400 Periwound Dressing Other 04/26/24 1505 Dressing Status Clean, dry & intact 04/26/24 1505 Wound Bed Granulation (%) 100 % 03/22/24 1041 Tunneling 2.6 cm 05/08/24 1039 Tunneling Clock Position of Wound 11 05/08/24 1039 Negative Pressure Wound Therapy Back Posterior (Active) Unit Type SNAP 05/08/24 1100 Dressing Type Other (Comment) 05/08/24 1100 Number of Foam Pieces Used 2 05/08/24 1100 Cycle Continuous 05/08/24 1100 Target Pressure (mmHg) Other (Comment) 05/08/24 1100 Canister Changed Yes 05/08/24 1100 $ Neg Pressure Wound Therapy Charges < or equal 50 scm non-DME 05/08/24 1100 No diagnosis found. Pt ed, reassure Dr. Munoz consulted Continue snap with larger canister Reviewed s/s infection Reviewed protein/nutrition Reviewed activity Recheck one wk with Dr. Munoz for vac change, sooner prn Pt agrees with plan. PLAN: Patient examined and evaluated. Patient understands all that has been explained and wishes to proceed with current treatment. Patient understands all risks, benefits, procedures, ritika- operative management, and possible complications. All questions answered and no guarantees made or implied. Treatment: No orders of the defined types were placed in this encounter. Please see attached Discharge Instructions documented in this [facility]08-12-2024 Hospital Discharge instructions* Patient Instructions* Callie Hodge RN - 05/08/2024 10:30 AM EDT Follow-up Appointments with Dr. Munoz Return Appointment in 1 week. Call [place] wound center at [phone], [place] [place] [facility] at [phone], or [facility]ound center at [phone]. Follow nutritious diet including, increasing protein to 100 grams a day Avoid pressure, friction, shearing to wound area. Wound Care Instructions; Upper back Dressing change to consist of: (Weekly at Wound Center) - Remove old dressing and discard per policy. - Cleanse with normal saline., pat dry - Apply skin prep to ritika-wound. - Apply dressing from NPWT kit, apply blue foam to wound bed. - Set cycle on NPWT pump to suction - Set pressure on NPWT pump (Using large canister) - Change dressing weekly shower or tub bath. Directions for [facility]: If wound loses suction: Remove snap back and apply wet to dry dressing until your next appointment. Signs and symptoms of wound infection: - fever - flu-like symptoms - pus or unusual drainage - foul odor - worsening of wound - spreading redness or warmth around the wound - increased pain - increasing and/or uncontrolled blood sugar for diabetics Please call the wound center at [phone] if you are experiencing this. If we are closed and youare unable to reach us in person please go to the ER. [facility] documented in this [facility]08-12-2024 [facility] Wound Care Progress Note CHIEF COMPLAINT: Wound Care HISTORY OF PRESENT ILLNESS: The patient is a 68 y.o. male with history of multiple myeloma. Seen by wound care for non-healing surgical wound of neck area. ( Surgery was Oct 2022). Notes improvement. Currently using snap vac. Had changed to smaller canister due to decreased drainage at last visit. When snap vac removed today, increased drainage noted in tube and at site of dressing. Denies constitutional symptoms. Pain <1/10. REVIEW OF SYSTEMS: Review of Systems Constitutional: Negative. Negative for chills, fatigue and fever. See HPI Respiratory: Negative. Cardiovascular: Negative. Skin: Positive for wound. Negative for color change (from typical for patient) and rash. PHYSICAL EXAM: BP 99/59 (BP Location: Right arm, Patient Position: Sitting, BP Cuff Size: Adult) Pulse 84 Temp 36.8 ?C (98.3 ?F) (Temporal) Resp 18 Physical Exam Vitals reviewed. Constitutional: General: He is not in acute distress. Appearance: Normal appearance. He is not ill-appearing or toxic-appearing. HENT: Ears: Comments: Hearing to conversational voice is normal. Pulmonary: Effort: Pulmonary effort is normal. Breath sounds: No wheezing (No audible wheeze). Skin: General: Skin is warm. Comments: Both wounds with red tissue, sanguinous drainage. Increased tunneling noted since last week. Neither wound appears cellulitic. See photos and measurements. Neurological: Mental Status: He is alert and oriented to person, place, and time. Psychiatric: Thought Content: Thought content normal. Wound/Incision 03/22/24 Surgical Neck Posterior;Upper (Active) Wound Image 05/08/24 1037 Site Assessment Granulation;Red;Bleeding 05/08/24 1037 Ritika-Wound Assessment Intact;Excoriated 05/08/24 1037 Wound Length (cm) 0.9 cm 05/08/24 1037 Wound Width (cm) 0.7 cm 05/08/24 1037 Wound Surface Area (cm^2) 0.63 cm^2 05/08/24 1037 Wound Depth (cm) 1.1 cm 05/08/24 1037 Wound Volume (cm^3) 0.693 cm^3 05/08/24 1037 Wound Healing % 96 05/08/24 1037 Drainage Description Serosanguineous 05/08/24 1037 Odor None 05/08/24 1037 Drainage Amount Large 05/08/24 1037 Treatments Cleansed 05/08/24 1037 Primary Dressing Other (Comment) 04/26/24 1600 Secondary Dressing ABD 03/29/24 1400 Secured with Medfix tape 03/29/24 1400 Periwound Dressing Other 04/26/24 1600 Dressing Status Clean, dry & intact 04/26/24 1600 Tunneling 2.1 cm 05/08/24 1039 Tunneling Clock Position of Wound 10 05/08/24 1039 Wound/Incision 03/22/24 Surgical Back (Active) Wound Image 05/08/24 1039 Site Assessment Bleeding;Red 05/08/24 1039 Ritika-Wound Assessment Intact;Excoriated 05/08/24 1039 Wound Length (cm) 1.3 cm 05/08/24 1039 Wound Width (cm) 1.4 cm 05/08/24 1039 Wound Surface Area (cm^2) 1.82 cm^2 05/08/24 1039 Wound Depth (cm) 1.9 cm 05/08/24 1039 Wound Volume (cm^3) 3.458 cm^3 05/08/24 1039 Wound Healing % -5663 05/08/24 1039 Drainage Description Serosanguineous 05/08/24 1039 Odor None 05/08/24 1039 Drainage Amount Copious 05/08/24 1039 Treatments Cleansed 05/08/24 1039 Primary Dressing Other (Comment) 04/26/24 1505 Secondary Dressing ABD 03/29/24 1400 Secured with Medfix tape 03/29/24 1400 Periwound Dressing Other 04/26/24 1505 Dressing Status Clean, dry & intact 04/26/24 1505 Wound Bed Granulation (%) 100 % 03/22/24 1041 Tunneling 2.6 cm 05/08/24 1039 Tunneling Clock Position of Wound 11 05/08/24 1039 Negative Pressure Wound Therapy Back Posterior (Active) Unit Type SNAP 05/08/24 1100 Dressing Type Other (Comment) 05/08/24 1100 Number of Foam Pieces Used 2 05/08/24 1100 Cycle Continuous 05/08/24 1100 Target Pressure (mmHg) Other (Comment) 05/08/24 1100 Canister Changed Yes 05/08/24 1100 $ Neg Pressure Wound Therapy Charges < or equal 50 scm non-DME 05/08/24 1100 No diagnosis found. Pt ed, reassure Dr. Munoz consulted Continue snap with larger canister Reviewed s/s infection Reviewed protein/nutrition Reviewed activity Recheck one wk with Dr. Munoz for vac change, sooner prn Pt agrees with plan. PLAN: Patient examined and evaluated. Patient understands all that has been explained and wishes to proceed with current treatment. Patient understands all risks, benefits, procedures, ritika-operative management, and possible complications. All questions answered and no guarantees made or implied. Treatment: No orders of the defined types were placed in this encounter. Please see attached Discharge Instructions [facility] [id number] History of Present illness Narrative* Mickey Munoz, DO - 05/03/2024 2:00 PM EDT Images from the original note were not included. [facility] Wound Care Progress Note CHIEF COMPLAINT: Wound Care HISTORY OF PRESENT ILLNESS: The patient is a 68 y.o. male with history of multiple myeloma. Seen by wound care for non-healing surgical wound of neck area. ( Surgery was Oct 2022). Feels this area may be improving. Less drainage. Currently using snap vac. Denies constitutional symptoms. REVIEW OF SYSTEMS: Review of Systems Constitutional: Negative. Negative for chills, fatigue and fever. See HPI Respiratory: Negative. Cardiovascular: Negative. Skin: Positive for wound. Negative for color change (from typical for patient) and rash. PHYSICAL EXAM: BP 104/63 (BP Location: Left arm, Patient Position: Sitting) Pulse 60 Temp 37.1 C (98.8 F) Resp 18 Physical Exam Vitals reviewed. Constitutional: General: He is not in acute distress. Appearance: Normal appearance. He is not ill-appearing or toxic-appearing. HENT: Ears: Comments: Hearing to conversational voice is normal. Pulmonary: Effort: Pulmonary effort is normal. Breath sounds: No wheezing (No audible wheeze). Skin: General: Skin is warm. Comments: Both wounds showing some improvement with less drainage in the cannister. Neither wound appears cellulitic. See photos and measurements. Neurological: Mental Status: He is alert and oriented to person, place, and time. Psychiatric: Thought Content: Thought content normal. Wound/Incision 03/22/24 Surgical Neck Posterior;Upper (Active) Wound Image 05/03/24 1343 Site Assessment Granulation;Pale;Lihue 05/03/24 1343 Ritika-Wound Assessment Intact;Scarred 05/03/24 1343 Wound Length (cm) 0.7 cm 05/03/24 1343 Wound Width (cm) 0.5 cm 05/03/24 1343 Wound Surface Area (cm^2) 0.35 cm^2 05/03/24 1343 Wound Depth (cm) 1.6 cm 05/03/24 1343 Wound Volume (cm^3) 0.56 cm^3 05/03/24 1343 Wound Healing % 96 05/03/24 1343 Drainage Description Serosanguineous 05/03/24 1343 Odor None 05/03/24 1343 Drainage Amount Large 05/03/24 1343 Treatments Cleansed 05/03/24 1343 Primary Dressing Other (Comment) 04/26/24 1600 Secondary Dressing ABD 03/29/24 1400 Secured with Medfix tape 03/29/24 1400 Periwound Dressing Other 04/26/24 1600 Dressing Status Clean, dry & intact 04/26/24 1600 Tunneling Clock Position of Wound 11 04/19/24 1317 Wound/Incision 03/22/24 Surgical Back (Active) Wound Image 05/03/24 1345 Site Assessment Bleeding;Granulation 05/03/24 1345 Ritika-Wound Assessment Scarred 05/03/24 1345 Wound Length (cm) 0.8 cm 05/03/24 1345 Wound Width (cm) 0.6 cm 05/03/24 1345 Wound Surface Area (cm^2) 0.48 cm^2 05/03/24 1345 Wound Depth (cm) 1.2 cm 05/03/24 1345 Wound Volume (cm^3) 0.576 cm^3 05/03/24 1345 Wound Healing % -860 05/03/24 1345 Drainage Description Serosanguineous 05/03/24 1345 Odor None 05/03/24 1345 Drainage Amount Large 05/03/24 1345 Treatments Cleansed 05/03/24 1345 Primary Dressing Other (Comment) 04/26/24 1505 Secondary Dressing ABD 03/29/24 1400 Secured with Medfix tape 03/29/24 1400 Periwound Dressing Other 04/26/24 1505 Dressing Status Clean, dry & intact 04/26/24 1505 Wound Bed Granulation (%) 100 % 03/22/24 1041 Tunneling 1 cm 04/05/24 1344 Tunneling Clock Position of Wound 12 04/05/24 1344 Negative Pressure Wound Therapy Back Posterior (Active) Unit Type SNAP 05/03/24 1400 Dressing Type Other (Comment) 05/03/24 1400 Number of Foam Pieces Used 2 05/03/24 1400 Cycle Continuous 05/03/24 1400 Target Pressure (mmHg) Other (Comment) 05/03/24 1400 Canister Changed Yes 05/03/24 1400 $ Neg Pressure Wound Therapy Charges < or equal 50 scm non-DME 05/03/24 1400 1. Disruption of external operation (surgical) wound, not elsewhere classified, sequela 2. 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 3. Multiple myeloma, remission status unspecified (HCC) Pt ed, reassure Continue snap. Reviewed s/s infection Reviewed protein/nutrition Reviewed activity Recheck one wk for vac change, sooner prn Pt agrees with plan. PLAN: Patient examined and evaluated. Patient understands all that has been explained and wishes to proceed with current treatment. Patient understands all risks, benefits, procedures, ritika- operative management, and possible complications. All questions answered and no guarantees made or implied. Treatment: Orders Placed This Encounter Procedures Wound Care OP Follow-up Follow up in 1 week Apply Wound Vac SNAP regular canister, Blue foam Order Specific Question: Apply to (location): Answer: Upper back x 2 Order Specific Question: Target Pressure: Answer: Other (as specified) Comments: SNAP Order Specific Question: Cycle Time Answer: Continuous Comments: SNAP Order Specific Question: Dressing Type Answer: Other (as specified) Please see attached Discharge Instructions documented in this [facility]08-07-2024 Hospital Discharge instructions* Patient Instructions* Callie Hodge RN - 05/03/2024 2:00 PM EDT Follow-up Appointments: On Tuesday 05/08 with LOCK TENDER to change SNAP then follow up with Dr. Munoz the following week. Call [place] [facility] at [phone], [facility] at [phone], or [facility] at [phone]. Follow nutritious diet including, increasing protein to 100 grams a day Avoid pressure, friction, shearing to wound area. Wound Care Instructions; Upper back Dressing change to consist of: (Weekly at Wound Center) - Remove old dressing and discard per policy. - Cleanse with normal saline., pat dry - Apply skin prep to ritika-wound. - Apply dressing from NPWT kit, apply blue foam to wound bed. - Set cycle on NPWT pump to Continuous. - Set pressure on NPWT pump - Change dressing weekly shower or tub bath. Directions for [facility]: If wound loses suction: Remove snap back and apply wet to dry dressing until your next appointment. Signs and symptoms of wound infection: - fever - flu-like symptoms - pus or unusual drainage - foul odor - worsening of wound - spreading redness or warmth around the wound - increased pain - increasing and/or uncontrolled blood sugar for diabetics Please call the wound center at [phone] if you are experiencing this. If we are closed and youare unable to reach us in person please go to the ER. [facility] documented in this [facility]08-07-2024 [facility] Wound Care Progress Note CHIEF COMPLAINT: Wound Care HISTORY OF PRESENT ILLNESS: The patient is a 68 y.o. male with history of multiple myeloma. Seen by wound care for non-healing surgical wound of neck area. ( Surgery was Oct 2022). Feels this area may be improving. Less drainage. Currently using snap vac. Denies constitutional symptoms. REVIEW OF SYSTEMS: Review of Systems Constitutional: Negative. Negative for chills, fatigue and fever. See HPI Respiratory: Negative. Cardiovascular: Negative. Skin: Positive for wound. Negative for color change (from typical for patient) and rash. PHYSICAL EXAM: BP 104/63 (BP Location: Left arm, Patient Position: Sitting) Pulse 60 Temp 37.1 ?C (98.8 ?F) Resp 18 Physical Exam Vitals reviewed. Constitutional: General: He is not in acute distress. Appearance: Normal appearance. He is not ill-appearing or toxic-appearing. HENT: Ears: Comments: Hearing to conversational voice is normal. Pulmonary: Effort: Pulmonary effort is normal. Breath sounds: No wheezing (No audible wheeze). Skin: General: Skin is warm. Comments: Both wounds showing some improvement with less drainage in the cannister. Neither wound appears cellulitic. See photos and measurements. Neurological: Mental Status: He is alert and oriented to person, place, and time. Psychiatric: Thought Content: Thought content normal. Wound/Incision 03/22/24 Surgical Neck Posterior;Upper (Active) Wound Image 05/03/24 134 Site Assessment Granulation;Pale;Lihue 05/03/24 1343 Ritika-Wound Assessment Intact;Scarred 05/03/24 1343 Wound Length (cm) 0.7 cm 05/03/24 1343 Wound Width (cm) 0.5 cm 05/03/24 1343 Wound Surface Area (cm^2) 0.35 cm^2 05/03/24 1343 Wound Depth (cm) 1.6 cm 05/03/24 1343 Wound Volume (cm^3) 0.56 cm^3 05/03/24 134 Wound Healing % 96 05/03/24 1343 Drainage Description Serosanguineous 05/03/24 1343 Odor None 05/03/24 1343 Drainage Amount Large 05/03/24 1343 Treatments Cleansed 05/03/24 1343 Primary Dressing Other (Comment) 04/26/24 1600 Secondary Dressing ABD 03/29/24 1400 Secured with Medfix tape 03/29/24 1400 Periwound Dressing Other 04/26/24 1600 Dressing Status Clean, dry & intact 04/26/24 1600 Tunneling Clock Position of Wound 11 04/19/24 1317 Wound/Incision 03/22/24 Surgical Back (Active) Wound Image 05/03/24 1345 Site Assessment Bleeding;Granulation 05/03/24 134 Ritika-Wound Assessment Scarred 05/03/24 1345 Wound Length (cm) 0.8 cm 05/03/24 134 Wound Width (cm) 0.6 cm 05/03/24 1345 Wound Surface Area (cm^2) 0.48 cm^2 05/03/24 1345 Wound Depth (cm) 1.2 cm 05/03/24 134 Wound Volume (cm^3) 0.576 cm^3 05/03/24 134 Wound Healing % -860 05/03/24 1345 Drainage Description Serosanguineous 05/03/24 1345 Odor None 05/03/24 1345 Drainage Amount Large 05/03/24 1345 Treatments Cleansed 05/03/24 1345 Primary Dressing Other (Comment) 04/26/24 1505 Secondary Dressing ABD 03/29/24 1400 Secured with Medfix tape 03/29/24 1400 Periwound Dressing Other 04/26/24 1505 Dressing Status Clean, dry & intact 04/26/24 1505 Wound Bed Granulation (%) 100 % 03/22/24 1041 Tunneling 1 cm 04/05/24 1344 Tunneling Clock Position of Wound 12 04/05/24 1344 Negative Pressure Wound Therapy Back Posterior (Active) Unit Type SNAP 05/03/24 1400 Dressing Type Other (Comment) 05/03/24 1400 Number of Foam Pieces Used 2 05/03/24 1400 Cycle Continuous 05/03/24 1400 Target Pressure (mmHg) Other (Comment) 05/03/24 1400 Canister Changed Yes 05/03/24 1400 $ Neg Pressure Wound Therapy Charges < or equal 50 scm non-DME 05/03/24 1400 1. Disruption of external operation (surgical) wound, not elsewhere classified, sequela 2. 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 3. Multiple myeloma, remission status unspecified (HCC) Pt ed, reassure Continue snap. Reviewed s/s infection Reviewed protein/nutrition Reviewed activity Recheck one wk for vac change, sooner prn Pt agrees with plan. PLAN: Patient examined and evaluated. Patient understands all that has been explained and wishes to proceed with current treatment. Patient understands all risks, benefits, procedures, ritika-operative management, and possible complications. All questions answered and no guarantees made or implied. Treatment: Orders Placed This Encounter Procedures Wound Care OP Follow-up Follow up in 1 week Apply Wound Vac SNAP regular canister, Blue foam Order Specific Question: Apply to (location): Answer: Upper back x 2 Order Specific Question: Target Pressure: Answer: Other (as specified) Comments: SNAP Order Specific Question: Cycle Time Answer: Continuous Comments: SNAP Order Specific Question: Dressing Type Answer: Other (as specified) Please see attached Discharge Instructions [facility]07-31-2024 History of Present illness Narrative* Mickey Munoz, DO - 04/26/2024 3:15 PM EDT Images from the original note were not included. [facility] Wound Care Progress Note CHIEF COMPLAINT: Wound Care HISTORY OF PRESENT ILLNESS: The patient is a 68 y.o. male with history of multiple myeloma. Seen by wound care for non-healing surgical wound of neck area. (Oct 2022). Feels this area is stable. Maybe less drainage. Currently using snap vac. Denies constitutional symptoms. REVIEW OF SYSTEMS: Review of Systems Constitutional: Negative. Negative for chills, fatigue and fever. See HPI Respiratory: Negative. Cardiovascular: Negative. Skin: Positive for wound. Negative for color change (from typical for patient) and rash. PHYSICAL EXAM: BP 117/51 (BP Location: Left arm, Patient Position: Sitting, BP Cuff Size: Adult) Pulse 60 Temp36.2 C (97.1 F) (Temporal) Resp 18 Physical Exam Vitals reviewed. Constitutional: General: He is not in acute distress. Appearance: Normal appearance. He is not ill-appearing or toxic-appearing. HENT: Ears: Comments: Hearing to conversational voice is normal. Pulmonary: Effort: Pulmonary effort is normal. Breath sounds: No wheezing (No audible wheeze). Skin: General: Skin is warm. Comments: Both wounds about the same, but less drainage in the cannister. Neither wound appears cellulitic. See photos and measurements. Neurological: Mental Status: He is alert and oriented to person, place, and time. Psychiatric: Thought Content: Thought content normal. Wound/Incision 03/22/24 Surgical Neck Posterior;Upper (Active) Wound Image 04/26/24 1507 Site Assessment Bleeding;Red;Yellow 04/26/24 1507 Ritika-Wound Assessment Intact;Scarred 04/26/24 1507 Wound Length (cm) 1.1 cm 04/26/24 1507 Wound Width (cm) 1.1 cm 04/26/24 1507 Wound Surface Area (cm^2) 1.21 cm^2 04/26/24 1507 Wound Depth (cm) 1.7 cm 04/26/24 1507 Wound Volume (cm^3) 2.057 cm^3 04/26/24 1507 Wound Healing % 87 04/26/24 1507 Drainage Description Serosanguineous 04/26/24 1507 Odor None 04/26/24 1507 Drainage Amount Large 04/26/24 1507 Treatments Cleansed 04/26/24 1507 Primary Dressing Mesalt rope 03/29/24 1400 Secondary Dressing ABD 03/29/24 1400 Secured with Medfix tape 03/29/24 1400 Dressing Status New dressing;Clean, dry & intact 03/22/24 1041 Tunneling Clock Position of Wound 11 04/19/24 1317 Wound/Incision 03/22/24 Surgical Back (Active) Wound Image 04/26/24 1505 Site Assessment Bleeding;Red 04/26/24 1505 Ritika-Wound Assessment Intact;Scarred 04/26/24 1505 Wound Length (cm) 0.9 cm 04/26/24 1505 Wound Width (cm) 1.4 cm 04/26/24 1505 Wound Surface Area (cm^2) 1.26 cm^2 04/26/24 1505 Wound Depth (cm) 1.6 cm 04/26/24 1505 Wound Volume (cm^3) 2.016 cm^3 04/26/24 1505 Wound Healing % -3260 04/26/24 1505 Drainage Description Serosanguineous 04/26/24 1505 Odor None 04/26/24 1505 Drainage Amount Large 04/26/24 1505 Treatments Cleansed 04/26/24 1505 Primary Dressing Mesalt rope 03/29/24 1400 Secondary Dressing ABD 03/29/24 1400 Secured with Medfix tape 03/29/24 1400 Dressing Status New dressing;Clean, dry & intact 03/22/24 1041 Wound Bed Granulation (%) 100 % 03/22/24 1041 Tunneling 1 cm 04/05/24 1344 Tunneling Clock Position of Wound 12 04/05/24 1344 Negative Pressure Wound Therapy Back Posterior (Active) Unit Type SNAP 04/19/24 1400 Dressing Type Other (Comment) 04/19/24 1400 Number of Foam Pieces Used 1 04/19/24 1400 Cycle Continuous 04/19/24 1400 Target Pressure (mmHg) Other (Comment) 04/19/24 1400 Canister Changed Yes 04/19/24 1400 $ Neg Pressure Wound Therapy Charges < or equal 50 scm non-DME 04/19/24 1400 1. Disruption of external operation (surgical) wound, not elsewhere classified, sequela 2. 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 3. 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 Reviewed s/s infection Reviewed protein/nutrition Reviewed activity Recheck one wk for vac change, sooner prn We will try to get him to weekly snap change. Pt agrees with plan. PLAN: Patient examined and evaluated. Patient understands all that has been explained and wishes to proceed with current treatment. Patient understands all risks, benefits, procedures, ritika- operative management, and possible complications. All questions answered and no guarantees made or implied. Treatment: Orders Placed This Encounter Procedures Wound Care OP Follow-up Follow up in 1 week Apply Wound Vac Blue Foam w/ snap Scheduling Instructions: If wound vac loses a seal and alarms and you are unable to patch the leak within 2 hours, please call your home care or the wound clinic and remove the wound vac and apply moist guaze dressing and cover with an ABD pad. Order Specific Question: Apply to (location): Answer: proximal/distal back Order Specific Question: Target Pressure: Answer: Other (as specified) Comments: suction Order Specific Question: Cycle Time Answer: Continuous Comments: SNAP Order Specific Question: Dressing Type Answer: Other (as specified) Please see attached Discharge Instructions documented in this [facility]07-31-2024 History of Present illness Narrative* Mickey Mnuoz DO - 04/26/2024 3:15 PM EDT Images from the original note were not included. [facility] Wound Care Progress Note CHIEF COMPLAINT: Wound Care HISTORY OF PRESENT ILLNESS: The patient is a 68 y.o. male with history of multiple myeloma. Seen by wound care for non-healing surgical wound of neck area. (Oct 2022). Feels this area is stable. Maybe less drainage. Currently using snap vac. Denies constitutional symptoms. REVIEW OF SYSTEMS: Review of Systems Constitutional: Negative. Negative for chills, fatigue and fever. See HPI Respiratory: Negative. Cardiovascular: Negative. Skin: Positive for wound. Negative for color change (from typical for patient) and rash. PHYSICAL EXAM: BP 117/51 (BP Location: Left arm, Patient Position: Sitting, BP Cuff Size: Adult) Pulse 60 Temp36.2 C (97.1 F) (Temporal) Resp 18 Physical Exam Vitals reviewed. Constitutional: General: He is not in acute distress. Appearance: Normal appearance. He is not ill-appearing or toxic-appearing. HENT: Ears: Comments: Hearing to conversational voice is normal. Pulmonary: Effort: Pulmonary effort is normal. Breath sounds: No wheezing (No audible wheeze). Skin: General: Skin is warm. Comments: Both wounds about the same, but less drainage in the cannister. Neither wound appears cellulitic. See photos and measurements. Neurological: Mental Status: He is alert and oriented to person, place, and time. Psychiatric: Thought Content: Thought content normal. Wound/Incision 03/22/24 Surgical Neck Posterior;Upper (Active) Wound Image 04/26/24 1507 Site Assessment Bleeding;Red;Yellow 04/26/24 1507 Ritika-Wound Assessment Intact;Scarred 04/26/24 1507 Wound Length (cm) 1.1 cm 04/26/24 1507 Wound Width (cm) 1.1 cm 04/26/24 1507 Wound Surface Area (cm^2) 1.21 cm^2 04/26/24 1507 Wound Depth (cm) 1.7 cm 04/26/24 1507 Wound Volume (cm^3) 2.057 cm^3 04/26/24 1507 Wound Healing % 87 04/26/24 1507 Drainage Description Serosanguineous 04/26/24 1507 Odor None 04/26/24 1507 Drainage Amount Large 04/26/24 1507 Treatments Cleansed 04/26/24 1507 Primary Dressing Mesalt rope 03/29/24 1400 Secondary Dressing ABD 03/29/24 1400 Secured with Medfix tape 03/29/24 1400 Dressing Status New dressing;Clean, dry & intact 03/22/24 1041 Tunneling Clock Position of Wound 11 04/19/24 1317 Wound/Incision 03/22/24 Surgical Back (Active) Wound Image 04/26/24 1505 Site Assessment Bleeding;Red 04/26/24 1505 Ritika-Wound Assessment Intact;Scarred 04/26/24 1505 Wound Length (cm) 0.9 cm 04/26/24 1505 Wound Width (cm) 1.4 cm 04/26/24 1505 Wound Surface Area (cm^2) 1.26 cm^2 04/26/24 1505 Wound Depth (cm) 1.6 cm 04/26/24 1505 Wound Volume (cm^3) 2.016 cm^3 04/26/24 1505 Wound Healing % -3260 04/26/24 1505 Drainage Description Serosanguineous 04/26/24 1505 Odor None 04/26/24 1505 Drainage Amount Large 04/26/24 1505 Treatments Cleansed 04/26/24 1505 Primary Dressing Mesalt rope 03/29/24 1400 Secondary Dressing ABD 03/29/24 1400 Secured with Medfix tape 03/29/24 1400 Dressing Status New dressing;Clean, dry & intact 03/22/24 1041 Wound Bed Granulation (%) 100 % 03/22/24 1041 Tunneling 1 cm 04/05/24 1344 Tunneling Clock Position of Wound 12 04/05/24 1344 Negative Pressure Wound Therapy Back Posterior (Active) Unit Type SNAP 04/19/24 1400 Dressing Type Other (Comment) 04/19/24 1400 Number of Foam Pieces Used 1 04/19/24 1400 Cycle Continuous 04/19/24 1400 Target Pressure (mmHg) Other (Comment) 04/19/24 1400 Canister Changed Yes 04/19/24 1400 $ Neg Pressure Wound Therapy Charges < or equal 50 scm non-DME 04/19/24 1400 1. Disruption of external operation (surgical) wound, not elsewhere classified, sequela 2. 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 3. 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 Reviewed s/s infection Reviewed protein/nutrition Reviewed activity Recheck one wk for vac change, sooner prn We will try to get him to weekly snap change. Pt agrees with plan. PLAN: Patient examined and evaluated. Patient understands all that has been explained and wishes to proceed with current treatment. Patient understands all risks, benefits, procedures, ritika- operative management, and possible complications. All questions answered and no guarantees made or implied. Treatment: Orders Placed This Encounter Procedures Wound Care OP Follow-up Follow up in 1 week Apply Wound Vac Blue Foam w/ snap Scheduling Instructions: If wound vac loses a seal and alarms and you are unable to patch the leak within 2 hours, please call your home care or the wound clinic and remove the wound vac and apply moist guaze dressing and cover with an ABD pad. Order Specific Question: Apply to (location): Answer: proximal/distal back Order Specific Question: Target Pressure: Answer: Other (as specified) Comments: suction Order Specific Question: Cycle Time Answer: Continuous Comments: SNAP Order Specific Question: Dressing Type Answer: Other (as specified) Please see attached Discharge Instructions documented in this [facility]07-31-2024 Hospital Discharge instructions* Patient Instructions* Callie Hodge RN - 04/26/2024 3:15 PM EDT Follow-up Appointments: [address] Munoz Return Appointment in 1 week. Call [place] wound center at [phone], [place] [facility] at [phone], or [facility] center at [phone]. Follow nutritious diet including, increasing protein to 100 grams a day Avoid pressure, friction, shearing to wound area. Wound Care Instructions; Upper back Dressing change to consist of: (Weekly at Wound Center) - Remove old dressing and discard per policy. - Cleanse with normal saline., pat dry - Apply skin prep to ritika-wound. - Apply dressing from NPWT kit, apply blue foam to wound bed. - Set cycle on NPWT pump to Continuous. - Set pressure on NPWT pump - Change dressing weekly shower or tub bath. Directions for [facility]: If wound loses suction: Remove snap back and apply wet to dry dressing until your next appointment. Signs and symptoms of wound infection: - fever - flu-like symptoms - pus or unusual drainage - foul odor - worsening of wound - spreading redness or warmth around the wound - increased pain - increasing and/or uncontrolled blood sugar for diabetics Please call the wound center at [phone] if you are experiencing this. If we are closed and youare unable to reach us in person please go to the ER. [facility] documented in this [facility]07-31-2024 Hospital Discharge instructions* Patient Instructions* Callie Hodge RN - 04/26/2024 3:15 PM EDT Follow-up Appointments: [address] Munoz Return Appointment in 1 week. Call [place] wound center at [phone], [facility] at [phone], or [facility] center at [phone]. Follow nutritious diet including, increasing protein to 100 grams a day Avoid pressure, friction, shearing to wound area. Wound Care Instructions; Upper back Dressing change to consist of: (Weekly at Wound Center) - Remove old dressing and discard per policy. - Cleanse with normal saline., pat dry - Apply skin prep to ritika-wound. - Apply dressing from NPWT kit, apply blue foam to wound bed. - Set cycle on NPWT pump to Continuous. - Set pressure on NPWT pump - Change dressing weekly shower or tub bath. Directions for [facility]: If wound loses suction: Remove snap back and apply wet to dry dressing until your next appointment. Signs and symptoms of wound infection: - fever - flu-like symptoms - pus or unusual drainage - foul odor - worsening of wound - spreading redness or warmth around the wound - increased pain - increasing and/or uncontrolled blood sugar for diabetics Please call the wound center at [phone] if you are experiencing this. If we are closed and youare unable to reach us in person please go to the ER. [facility] documented in this [facility]07-31-2024 Miscellaneous Notes* Addendum Note - Sherry Stubbs RN - 04/26/2024 3:15 PM EDTEncounter addended by: Sherry Stubbs RN on: 04/27/2024 10:34 AM Actions taken: Charge Capture section accepted documented in this [facility]07-31-2024 Note* Addendum Note - Sherry Stubbs RN - 04/26/2024 3:15 PM EDTEncounter addended by: Sherry Stubbs RN on: 04/27/2024 10:34 AM Actions taken: Charge Capture section [id number] NoteEncounter addended by: Sherry Stubbs RN on: 04/27/2024 10:34 AM Actions taken: [facility] W[facility] Progress Note CHIEF COMPLAINT: Wound Care HISTORY OF PRESENT ILLNESS: The patient is a 68 y.o. male with history of multiple myeloma. Seen by wound care for non-healing surgical wound of neck area. (Oct 2022). Feels this area is stable. Maybe less drainage. Currently using snap vac. Denies constitutional symptoms. REVIEW OF SYSTEMS: Review of Systems Constitutional: Negative. Negative for chills, fatigue and fever. See HPI Respiratory: Negative. Cardiovascular: Negative. Skin: Positive for wound. Negative for color change (from typical for patient) and rash. PHYSICAL EXAM: BP 117/51 (BP Location: Left arm, Patient Position: Sitting, BP Cuff Size: Adult) Pulse 60 Temp 36.2 ?C (97.1 ?F) (Temporal) Resp 18 Physical Exam Vitals reviewed. Constitutional: General: He is not in acute distress. Appearance: Normal appearance. He is not ill-appearing or toxic-appearing. HENT: Ears: Comments: Hearing to conversational voice is normal. Pulmonary: Effort: Pulmonary effort is normal. Breath sounds: No wheezing (No audible wheeze). Skin: General: Skin is warm. Comments: Both wounds about the same, but less drainage in the cannister. Neither wound appears cellulitic. See photos and measurements. Neurological: Mental Status: He is alert and oriented to person, place, and time. Psychiatric: Thought Content: Thought content normal. Wound/Incision 03/22/24 Surgical Neck Posterior;Upper (Active) Wound Image 04/26/24 1507 Site Assessment Bleeding;Red;Yellow 04/26/24 1507 Ritika-Wound Assessment Intact;Scarred 04/26/24 1507 Wound Length (cm) 1.1 cm 04/26/24 1507 Wound Width (cm) 1.1 cm 04/26/24 1507 Wound Surface Area (cm^2) 1.21 cm^2 04/26/24 1507 Wound Depth (cm) 1.7 cm 04/26/24 1507 Wound Volume (cm^3) 2.057 cm^3 04/26/24 1507 Wound Healing % 87 04/26/24 1507 Drainage Description Serosanguineous 04/26/24 1507 Odor None 04/26/24 1507 Drainage Amount Large 04/26/24 1507 Treatments Cleansed 04/26/24 1507 Primary Dressing Mesalt rope 03/29/24 1400 Secondary Dressing ABD 03/29/24 1400 Secured with Medfix tape 03/29/24 1400 Dressing Status New dressing;Clean, dry & intact 03/22/24 1041 Tunneling Clock Position of Wound 11 04/19/24 1317 Wound/Incision 03/22/24 Surgical Back (Active) Wound Image 04/26/24 1505 Site Assessment Bleeding;Red 04/26/24 1505 Ritika-Wound Assessment Intact;Scarred 04/26/24 1505 Wound Length (cm) 0.9 cm 04/26/24 1505 Wound Width (cm) 1.4 cm 04/26/24 1505 Wound Surface Area (cm^2) 1.26 cm^2 04/26/24 1505 Wound Depth (cm) 1.6 cm 04/26/24 1505 Wound Volume (cm^3) 2.016 cm^3 04/26/24 1505 Wound Healing % -3260 04/26/24 1505 Drainage Description Serosanguineous 04/26/24 1505 Odor None 04/26/24 1505 Drainage Amount Large 04/26/24 1505 Treatments Cleansed 04/26/24 1505 Primary Dressing Mesalt rope 03/29/24 1400 Secondary Dressing ABD 03/29/24 1400 Secured with Medfix tape 03/29/24 1400 Dressing Status New dressing;Clean, dry & intact 03/22/24 1041 Wound Bed Granulation (%) 100 % 03/22/24 1041 Tunneling 1 cm 04/05/24 1344 Tunneling Clock Position of Wound 12 04/05/24 1344 Negative Pressure Wound Therapy Back Posterior (Active) Unit Type SNAP 04/19/24 1400 Dressing Type Other (Comment) 04/19/24 1400 Number of Foam Pieces Used 1 04/19/24 1400 Cycle Continuous 04/19/24 1400 Target Pressure (mmHg) Other (Comment) 04/19/24 1400 Canister Changed Yes 04/19/24 1400 $ Neg Pressure Wound Therapy Charges < or equal 50 scm non-DME 04/19/24 1400 1. Disruption of external operation (surgical) wound, not elsewhere classified, sequela 2. 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 3. 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 Reviewed s/s infection Reviewed protein/nutrition Reviewed activity Recheck one wk for vac change, sooner prn We will try to get him to weekly snap change. Pt agrees with plan. PLAN: Patient examined and evaluated. Patient understands all that has been explained and wishes to proceed with current treatment. Patient understands all risks, benefits, procedures, ritika-operative management, and possible complications. All questions answered and no guarantees made or implied. Treatment: Orders Placed This Encounter Procedures Wound Care OP Follow-up Follow up in 1 week Apply Wound Vac Blue Foam w/ snap Scheduling Instructions: If wound vac loses a seal and alarms and you are unable to patch the leak within 2 hours, please call your home care or the wound clinic and remove the wound vac and apply moist guaze dressing and cover with an ABD pad. Order Specific Question: Apply to (location): Answer: proximal/distal back Order Specific Question: Target Pressure: Answer: Other (as specified) Comments: suction (more content not included)...[facility] 04-19-[facility]24 History of Present illness Narrative* Mickey Munoz DO - 04/19/2024 12:45 PM EDT Images from the original note were not included. [facility] Wound Care Progress Note CHIEF COMPLAINT: Wound Care HISTORY OF PRESENT ILLNESS: The patient is a 68 y.o. male with history of multiple myeloma. Seen by wound care for non-healing surgical wound of neck area. (Oct 2022). Feels this area is stable. Still drains a lot. Currently using snap vac. Denies constitutional symptoms. REVIEW OF SYSTEMS: Review of Systems Constitutional: Negative. Negative for chills, fatigue and fever. See HPI Respiratory: Negative. Cardiovascular: Negative. Skin: Positive for wound. Negative for color change (from typical for patient) and rash. PHYSICAL EXAM: BP 102/61 Pulse 56 Temp 37.1 C (98.8 F) Resp 18 Physical Exam Vitals reviewed. Constitutional: General: He is not in acute distress. Appearance: Normal appearance. He is not ill-appearing or toxic-appearing. HENT: Ears: Comments: Hearing to conversational voice is normal. Pulmonary: Effort: Pulmonary effort is normal. Breath sounds: No wheezing (No audible wheeze). Skin: General: Skin is warm. Comments: Both wounds are improving. Neither wound appears cellulitic. See photos and measurements. Neurological: Mental Status: He is alert and oriented to person, place, and time. Psychiatric: Thought Content: Thought content normal. Wound/Incision 03/22/24 Surgical Neck Posterior;Upper (Active) Wound Image 04/19/24 1315 Site Assessment Bleeding 04/19/24 1315 Ritika-Wound Assessment Scarred 04/19/24 1315 Wound Length (cm) 1 cm 04/19/24 1315 Wound Width (cm) 0.9 cm 04/19/24 1315 Wound Surface Area (cm^2) 0.9 cm^2 04/19/24 1315 Wound Depth (cm) 1.2 cm 04/19/24 1315 Wound Volume (cm^3) 1.08 cm^3 04/19/24 1315 Wound Healing % 93 04/19/24 1315 Drainage Description Serosanguineous 04/19/24 1315 Odor None 04/19/24 1315 Drainage Amount Moderate 04/19/24 1315 Treatments Irrigation 04/19/24 1315 Primary Dressing Mesalt rope 03/29/24 1400 Secondary Dressing ABD 03/29/24 1400 Secured with Medfix tape 03/29/24 1400 Dressing Status New dressing;Clean, dry & intact 03/22/24 1041 Tunneling Clock Position of Wound 11 04/19/24 1317 Wound/Incision 03/22/24 Surgical Back (Active) Wound Image 04/19/24 1317 Site Assessment Bleeding 04/19/24 1317 Ritika-Wound Assessment Scarred 04/19/24 1317 Wound Length (cm) 0.9 cm 04/19/24 1317 Wound Width (cm) 1.2 cm 04/19/24 1317 Wound Surface Area (cm^2) 1.08 cm^2 04/19/24 1317 Wound Depth (cm) 1.1 cm 04/19/24 1317 Wound Volume (cm^3) 1.188 cm^3 04/19/24 1317 Wound Healing % -1880 04/19/24 1317 Drainage Description Serosanguineous 04/19/24 1317 Odor None 04/19/24 1317 Drainage Amount Moderate 04/19/24 1317 Treatments Irrigation 04/19/24 1317 Primary Dressing Mesalt rope 03/29/24 1400 Secondary Dressing ABD 03/29/24 1400 Secured with Medfix tape 03/29/24 1400 Dressing Status New dressing;Clean, dry & intact 03/22/24 1041 Wound Bed Granulation (%) 100 % 03/22/24 1041 Tunneling 1 cm 04/05/24 1344 Tunneling Clock Position of Wound 12 04/05/24 1344 Negative Pressure Wound Therapy Back Posterior (Active) Unit Type SNAP 04/19/24 1400 Dressing Type Other (Comment) 04/19/24 1400 Number of Foam Pieces Used 1 04/19/24 1400 Cycle Continuous 04/19/24 1400 Target Pressure (mmHg) Other (Comment) 04/19/24 1400 Canister Changed Yes 04/19/24 1400 $ Neg Pressure Wound Therapy Charges < or equal 50 scm non-DME 04/19/24 1400 1. Disruption of external operation (surgical) wound, not elsewhere classified, sequela 2. 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 3. 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 Reviewed s/s infection Reviewed protein/nutrition Reviewed activity Recheck one wk for vac change, sooner prn We will try to get him to weekly snap change. Pt agrees with plan. PLAN: Patient examined and evaluated. Patient understands all that has been explained and wishes to proceed with current treatment. Patient understands all risks, benefits, procedures, ritika- operative management, and possible complications. All questions answered and no guarantees made or implied. Treatment: Orders Placed This Encounter Procedures Wound Care OP Follow-up Follow up in 1 week Apply Wound Vac Blue foam Scheduling Instructions: If wound vac loses a seal and alarms and you are unable to patch the leak within 2 hours, please call your home care or the wound clinic and remove the wound vac and apply moist guaze dressing and cover with an ABD pad. Order Specific Question: Apply to (location): Answer: proximal distal back Order Specific Question: Target Pressure: Answer: Other (as specified) Comments: pressure Order Specific Question: Cycle Time Answer: Continuous Order Specific Question: Dressing Type Answer: Other (as specified) Please see attached Discharge Instructions documented in this [facility]07-24-2024 Hospital Discharge instructions* Patient Instructions* Callie Hodge RN - 04/19/2024 12:45 PM EDT Follow-up Appointments: [address] Munoz Return Appointment in 1 week. Call [place] wound center at [phone], [facility] at [phone], or [facility]ound center at [phone]. Follow nutritious diet including, increasing protein to 100 grams a day Avoid pressure, friction, shearing to wound area. Wound Care Instructions; Upper back Change the wound vac once a week Skilled nurse to perform dressing change to wound. Dressing change to consist of: - Remove old dressing and discard per policy. - Cleanse with normal saline., pat dry - Apply skin prep to ritika-wound. - Apply dressing from NPWT kit, apply blue foam to wound bed. - Set cycle on NPWT pump to Continuous. - Set pressure on NPWT pump - Change dressing weekly shower or tub bath. If wound loses suction: Remove snap back and apply wet to dry dressing until your next appointment. Signs and symptoms of wound infection: - fever - flu-like symptoms - pus or unusual drainage - foul odor - worsening of wound - spreading redness or warmth around the wound - increased pain - increasing and/or uncontrolled blood sugar for diabetics Please call the wound center at [phone] if you are experiencing this. If we are closed and youare unable to reach us in person please go to the ER. [facility] documented in this [facility]07-24-2024 [facility] Wound Care Progress Note CHIEF COMPLAINT: Wound Care HISTORY OF PRESENT ILLNESS: The patient is a 68 y.o. male with history of multiple myeloma. Seen by wound care for non-healing surgical wound of neck area. (Oct 2022). Feels this area is stable. Still drains a lot. Currently using snap vac. Denies constitutional symptoms. REVIEW OF SYSTEMS: Review of Systems Constitutional: Negative. Negative for chills, fatigue and fever. See HPI Respiratory: Negative. Cardiovascular: Negative. Skin: Positive for wound. Negative for color change (from typical for patient) and rash. PHYSICAL EXAM: BP 102/61 Pulse 56 Temp 37.1 ?C (98.8 ?F) Resp 18 Physical Exam Vitals reviewed. Constitutional: General: He is not in acute distress. Appearance: Normal appearance. He is not ill-appearing or toxic-appearing. HENT: Ears: Comments: Hearing to conversational voice is normal. Pulmonary: Effort: Pulmonary effort is normal. Breath sounds: No wheezing (No audible wheeze). Skin: General: Skin is warm. Comments: Both wounds are improving. Neither wound appears cellulitic. See photos and measurements. Neurological: Mental Status: He is alert and oriented to person, place, and time. Psychiatric: Thought Content: Thought content normal. Wound/Incision 03/22/24 Surgical Neck Posterior;Upper (Active) Wound Image 04/19/24 1315 Site Assessment Bleeding 04/19/24 1315 Ritika-Wound Assessment Scarred 04/19/24 1315 Wound Length (cm) 1 cm 04/19/24 1315 Wound Width (cm) 0.9 cm 04/19/24 1315 Wound Surface Area (cm^2) 0.9 cm^2 04/19/24 1315 Wound Depth (cm) 1.2 cm 04/19/24 1315 Wound Volume (cm^3) 1.08 cm^3 04/19/24 1315 Wound Healing % 93 04/19/24 1315 Drainage Description Serosanguineous 04/19/24 1315 Odor None 04/19/24 1315 Drainage Amount Moderate 04/19/24 1315 Treatments Irrigation 04/19/24 1315 Primary Dressing Mesalt rope 03/29/24 1400 Secondary Dressing ABD 03/29/24 1400 Secured with Medfix tape 03/29/24 1400 Dressing Status New dressing;Clean, dry & intact 03/22/24 1041 Tunneling Clock Position of Wound 11 04/19/24 1317 Wound/Incision 03/22/24 Surgical Back (Active) Wound Image 04/19/24 1317 Site Assessment Bleeding 04/19/24 1317 Ritika-Wound Assessment Scarred 04/19/24 1317 Wound Length (cm) 0.9 cm 04/19/24 1317 Wound Width (cm) 1.2 cm 04/19/24 1317 Wound Surface Area (cm^2) 1.08 cm^2 04/19/24 1317 Wound Depth (cm) 1.1 cm 04/19/24 1317 Wound Volume (cm^3) 1.188 cm^3 04/19/24 1317 Wound Healing % -1880 04/19/24 1317 Drainage Description Serosanguineous 04/19/24 1317 Odor None 04/19/24 1317 Drainage Amount Moderate 04/19/24 1317 Treatments Irrigation 04/19/24 1317 Primary Dressing Mesalt rope 03/29/24 1400 Secondary Dressing ABD 03/29/24 1400 Secured with Medfix tape 03/29/24 1400 Dressing Status New dressing;Clean, dry & intact 03/22/24 1041 Wound Bed Granulation (%) 100 % 03/22/24 1041 Tunneling 1 cm 04/05/24 1344 Tunneling Clock Position of Wound 12 04/05/24 1344 Negative Pressure Wound Therapy Back Posterior (Active) Unit Type SNAP 04/19/24 1400 Dressing Type Other (Comment) 04/19/24 1400 Number of Foam Pieces Used 1 04/19/24 1400 Cycle Continuous 04/19/24 1400 Target Pressure (mmHg) Other (Comment) 04/19/24 1400 Canister Changed Yes 04/19/24 1400 $ Neg Pressure Wound Therapy Charges < or equal 50 scm non-DME 04/19/24 1400 1. Disruption of external operation (surgical) wound, not elsewhere classified, sequela 2. 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 3. 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 Reviewed s/s infection Reviewed protein/nutrition Reviewed activity Recheck one wk for vac change, sooner prn We will try to get him to weekly snap change. Pt agrees with plan. PLAN: Patient examined and evaluated. Patient understands all that has been explained and wishes to proceed with current treatment. Patient understands all risks, benefits, procedures, ritika-operative management, and possible complications. All questions answered and no guarantees made or implied. Treatment: Orders Placed This Encounter Procedures Wound Care OP Follow-up Follow up in 1 week Apply Wound Vac Blue foam Scheduling Instructions: If wound vac loses a seal and alarms and you are unable to patch the leak within 2 hours, please call your home care or the wound clinic and remove the wound vac and apply moist guaze dressing and cover with an ABD pad. Order Specific Question: Apply to (location): Answer: proximal distal back Order Specific Question: Target Pressure: Answer: Other (as specified) Comments: pressure Order Specific Question: Cycle Time Answer: Continuous Order Specific Question: Dressing Type Answer: Other (as specified) Please see attached (more content not included)...[facility] 04-11-2024 Hospital Discharge instructions* Patient Instructions* Callie Hodge RN - 04/11/2024 2:30 PM EDT Follow-up Appointments: Return Appointment 2 xs a week. Call [place] [facility] at [phone], [facility] [phone], or [facility] at [phone]. Follow nutritious diet including, increasing protein to 100 grams a day Avoid pressure, friction, shearing to wound area. Wound Care Instructions; Upper back Change the wound vac x2 times a week Skilled nurse to perform dressing change to wound. Dressing change to consist of: - Remove old dressing and discard per policy. - Cleanse with normal saline., pat dry - Apply skin prep to ritika-wound. - Apply dressing from NPWT kit, apply blue foam to wound bed. - Set cycle on NPWT pump to Continuous. - Set pressure on NPWT pump to 125 mmHg. - Change dressing 2x weekly.o shower or tub bath. If wound loses suction: Remove snap back and apply wet to dry dressing until your next appointment. Signs and symptoms of wound infection: - fever - flu-like symptoms - pus or unusual drainage - foul odor - worsening of wound - spreading redness or warmth around the wound - increased pain - increasing and/or uncontrolled blood sugar for diabetics Please call the wound center at [phone] if you are experiencing this. If we are closed and youare unable to reach us in person please go to the ER. [facility] documented in this [facility]07-16-2024 Hospital Discharge instructions* Patient Instructions* Callie Hodge RN - 04/11/2024 2:30 PM EDT Follow-up Appointments: Return Appointment 2 xs a week. Call [place] [facility] center at [phone], [facility] [phone], or [facility] center at [phone]. Follow nutritious diet including, increasing protein to 100 grams a day Avoid pressure, friction, shearing to wound area. Wound Care Instructions; Upper back Change the wound vac x2 times a week Skilled nurse to perform dressing change to wound. Dressing change to consist of: - Remove old dressing and discard per policy. - Cleanse with normal saline., pat dry - Apply skin prep to ritika-wound. - Apply dressing from NPWT kit, apply blue foam to wound bed. - Set cycle on NPWT pump to Continuous. - Set pressure on NPWT pump to 125 mmHg. - Change dressing 2x weekly.o shower or tub bath. If wound loses suction: Remove snap back and apply wet to dry dressing until your next appointment. Signs and symptoms of wound infection: - fever - flu-like symptoms - pus or unusual drainage - foul odor - worsening of wound - spreading redness or warmth around the wound - increased pain - increasing and/or uncontrolled blood sugar for diabetics Please call the wound center at [phone] if you are experiencing this. If we are closed and youare unable to reach us in person please go to the ER. [facility] documented in this [facility]07-16-2024 Hospital Discharge instructions* Patient Instructions* Callie Hodge RN - 04/11/2024 2:30 PM EDT Follow-up Appointments: Return Appointment 2 xs a week. Call [place] [facility] center at [phone], [facility] [phone], or [facility] center at [phone]. Follow nutritious diet including, increasing protein to 100 grams a day Avoid pressure, friction, shearing to wound area. Wound Care Instructions; Upper back Change the wound vac x2 times a week Skilled nurse to perform dressing change to wound. Dressing change to consist of: - Remove old dressing and discard per policy. - Cleanse with normal saline., pat dry - Apply skin prep to ritika-wound. - Apply dressing from NPWT kit, apply blue foam to wound bed. - Set cycle on NPWT pump to Continuous. - Set pressure on NPWT pump to 125 mmHg. - Change dressing 2x weekly.o shower or tub bath. If wound loses suction: Remove snap back and apply wet to dry dressing until your next appointment. Signs and symptoms of wound infection: - fever - flu-like symptoms - pus or unusual drainage - foul odor - worsening of wound - spreading redness or warmth around the wound - increased pain - increasing and/or uncontrolled blood sugar for diabetics Please call the wound center at [phone] if you are experiencing this. If we are closed and youare unable to reach us in person please go to the ER. [facility] documented in this [facility]07-16-2024 Miscellaneous Notes* Addendum Note - Sherry Stubbs RN - 04/11/2024 2:30 PM EDTEncounter addended by: Sherry Stubbs RN on: 04/17/2024 2:04 PM Actions taken: Care Teams modified documented in this [address]16-2024 Miscellaneous Notes* Addendum Note - Sherry Stubbs RN - 04/11/2024 2:30 PM EDTEncounter addended by: Sherry Stubbs RN on: 04/17/2024 2:04 PM Actions taken: Care Teams modified * Addendum Note - Callie Hodge RN - 04/11/2024 2:30 PM EDTEncounter addended by: Callie Hodge RN on: 04/18/2024 9:33 AM Actions taken: Order list changed, Diagnosis association updated documented in this [address]16-2024 Note* Addendum Note - Sherry Stubbs RN - 04/11/2024 2:30 PM EDTEncounter addended by: Sherry Stubbs RN on: 04/17/2024 2:04 PM Actions taken: Care Teams modified [id number] Note* Addendum Note - Sherry Stubbs RN - 04/11/2024 2:30 PM EDTEncounter addended by: Sherry Stubbs RN on: 04/17/2024 2:04 PM Actions taken: Care Teams modified [id number] Note* Addendum Note - Callie Hodge RN - 04/11/2024 2:30 PM EDTEncounter addended by: Callie Hodeg RN on: 04/18/2024 9:33 AM Actions taken: Order list changed, Diagnosis association updated [id number] NoteEncounter addended by: Sherry Stubbs RN on: 04/17/2024 2:04 PM Actions taken: Care Teams [facility]07-16-2024 Note Encounter addended by: Callie Hodge RN on: 04/18/2024 9:33 AM Actions taken: Order list changed, [facility] History of Present illness Narrative* Mickey Munoz, DO - 04/05/2024 1:30 PM EDT Images from the original note were not included. [facility] Wound Care Progress Note CHIEF COMPLAINT: Wound Care HISTORY OF PRESENT ILLNESS: The patient is a 68 y.o. male with history of multiple myeloma. Seen by wound care for non-healing surgical wound of neck area. (Oct 2022). H Feels this area is stable. Still some drainage. Currentlyusing mesalt. Denies constitutional symptoms. REVIEW OF SYSTEMS: Review of Systems Constitutional: Negative. Negative for chills, fatigue and fever. See HPI Respiratory: Negative. Cardiovascular: Negative. Skin: Positive for wound. Negative for color change (from typical for patient) and rash. PHYSICAL EXAM: BP 98/59 Pulse 54 Temp 37 C (98.6 F) Resp 18 Physical Exam Vitals reviewed. Constitutional: General: He is not in acute distress. Appearance: Normal appearance. He is not ill-appearing or toxic-appearing. HENT: Ears: Comments: Hearing to conversational voice is normal. Pulmonary: Effort: Pulmonary effort is normal. Breath sounds: No wheezing (No audible wheeze). Skin: General: Skin is warm. Comments: Proximal wound has 1.2 cm straight in depth. Minimal drainage. No tunnel or undermine identified. Distal wound is shallow, with approximately 1.5 cm tunnel at 12 o'clock. No undermining identified Neither wound appears cellulitic. See photos and measurements. Neurological: Mental Status: He is alert and oriented to person, place, and time. Psychiatric: Thought Content: Thought content normal. Wound/Incision 03/22/24 Surgical Neck Posterior;Upper (Active) Wound Image 04/05/24 1341 Site Assessment Painful;Pale;Lihue;Sloughing 04/05/24 1341 Ritika-Wound Assessment Blanchable erythema;Scarred 04/05/24 1341 Wound Length (cm) 1.2 cm 04/05/24 1341 Wound Width (cm) 1.5 cm 04/05/24 1341 Wound Surface Area (cm^2) 1.8 cm^2 04/05/24 1341 Wound Depth (cm) 1.1 cm 04/05/24 1341 Wound Volume (cm^3) 1.98 cm^3 04/05/24 1341 Wound Healing % 87 04/05/24 1341 Drainage Description Serosanguineous 04/05/24 1341 Odor None 04/05/24 1341 Drainage Amount Moderate 04/05/24 1341 Treatments Cleansed 04/05/24 1341 Primary Dressing Mesalt rope 03/29/24 1400 Secondary Dressing ABD 03/29/24 1400 Secured with Medfix tape 03/29/24 1400 Dressing Status New dressing;Clean, dry & intact 03/22/24 1041 Wound/Incision 03/22/24 Surgical Back (Active) Wound Image 04/05/24 1344 Site Assessment Bleeding;Lihue 04/05/24 1344 Ritika-Wound Assessment Scarred 04/05/24 1344 Wound Length (cm) 0.9 cm 04/05/24 1344 Wound Width (cm) 1.2 cm 04/05/24 1344 Wound Surface Area (cm^2) 1.08 cm^2 04/05/24 1344 Wound Depth (cm) 1 cm 04/05/24 1344 Wound Volume (cm^3) 1.08 cm^3 04/05/24 1344 Wound Healing % -1700 04/05/24 1344 Drainage Description Serosanguineous 04/05/24 1344 Odor None 04/05/24 1344 Drainage Amount Moderate 04/05/24 1344 Treatments Cleansed 04/05/24 1344 Primary Dressing Mesalt rope 03/29/24 1400 Secondary Dressing ABD 03/29/24 1400 Secured with Medfix tape 03/29/24 1400 Dressing Status New dressing;Clean, dry & intact 03/22/24 1041 Wound Bed Granulation (%) 100 % 03/22/24 1041 Tunneling 1 cm 04/05/24 1344 Tunneling Clock Position of Wound 12 04/05/24 1344 1. Disruption of external operation (surgical) wound, not elsewhere classified, sequela 2. 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 3. Multiple myeloma, remission status unspecified (HCC) Pt ed, reassurance to pt and director of search engine optimization, present for entire visit Snap has been approved by insurance. We will apply today. Reviewed s/s infection Reviewed protein/nutrition Reviewed activity Recheck 2 days for VAC check and change, then WednesdayApril 11 for VAC change. He has chemo on Wednesday. We will try to get him to weekly snap change. Pt agrees with plan. PLAN: Patient examined and evaluated. Patient understands all that has been explained and wishes to proceed with current treatment. Patient understands all risks, benefits, procedures, ritika- operative management, and possible complications. All questions answered and no guarantees made or implied. Treatment: No orders of the defined types were placed in this encounter. Please see attached Discharge Instructions documented in this [facility]07-10-2024 Hospital Discharge instructions* Patient Instructions* Sherry Stubbs RN - 04/05/2024 1:30 PM EDT Follow-up Appointments: Return Appointment 2 xs a week. Call [place] wound center at [phone], [place] [phone], or [facility] W[facility] center at [phone]. Follow nutritious diet including, increasing protein to 100 grams a day Avoid pressure, friction, shearing to wound area. Wound Care Instructions; Upper back Change the wound vac 1-2 times a week Skilled nurse to perform dressing change to wound. Dressing change to consist of: - Remove old dressing and discard per policy. - Cleanse with normal saline. - Rinse with saline. - Dry with sponge or gauze pad. - Apply skin prep to ritika-wound. - Apply dressing from NPWT kit to wound. - Set cycle on NPWT pump to Continuous. - Set pressure on NPWT pump to 125 mmHg. - Change dressing 2x weekly.o shower or tub bath. Signs and symptoms of wound infection: - fever - flu-like symptoms - pus or unusual drainage - foul odor - worsening of wound - spreading redness or warmth around the wound - increased pain - increasing and/or uncontrolled blood sugar for diabetics Please call the wound center at [phone] if you are experiencing this. If we are closed and youare unable to reach us in person please go to the ER. [facility] documented in this [facility]07-10-2024 [facility] Wound Care Progress Note CHIEF COMPLAINT: Wound Care HISTORY OF PRESENT ILLNESS: The patient is a 68 y.o. male with history of multiple myeloma. Seen by wound care for non-healing surgical wound of neck area. (Oct 2022). H Feels this area is stable. Still some drainage. Currently using mesalt. Denies constitutional symptoms. REVIEW OF SYSTEMS: Review of Systems Constitutional: Negative. Negative for chills, fatigue and fever. See HPI Respiratory: Negative. Cardiovascular: Negative. Skin: Positive for wound. Negative for color change (from typical for patient) and rash. PHYSICAL EXAM: BP 98/59 Pulse 54 Temp 37 ?C (98.6 ?F) Resp 18 Physical Exam Vitals reviewed. Constitutional: General: He is not in acute distress. Appearance: Normal appearance. He is not ill-appearing or toxic-appearing. HENT: Ears: Comments: Hearing to conversational voice is normal. Pulmonary: Effort: Pulmonary effort is normal. Breath sounds: No wheezing (No audible wheeze). Skin: General: Skin is warm. Comments: Proximal wound has 1.2 cm straight in depth. Minimal drainage. No tunnel or undermine identified. Distal wound is shallow, with approximately 1.5 cm tunnel at 12 o'clock. No undermining identified Neither wound appears cellulitic. See photos and measurements. Neurological: Mental Status: He is alert and oriented to person, place, and time. Psychiatric: Thought Content: Thought content normal. Wound/Incision 03/22/24 Surgical Neck Posterior;Upper (Active) Wound Image 04/05/24 1341 Site Assessment Painful;Pale;Lihue;Sloughing 04/05/24 1341 Ritika-Wound Assessment Blanchable erythema;Scarred 04/05/24 1341 Wound Length (cm) 1.2 cm 04/05/24 1341 Wound Width (cm) 1.5 cm 04/05/24 1341 Wound Surface Area (cm^2) 1.8 cm^2 04/05/24 1341 Wound Depth (cm) 1.1 cm 04/05/24 1341 Wound Volume (cm^3) 1.98 cm^3 04/05/24 1341 Wound Healing % 87 04/05/24 1341 Drainage Description Serosanguineous 04/05/24 1341 Odor None 04/05/24 1341 Drainage Amount Moderate 04/05/24 1341 Treatments Cleansed 04/05/24 1341 Primary Dressing Mesalt rope 03/29/24 1400 Secondary Dressing ABD 03/29/24 1400 Secured with Medfix tape 03/29/24 1400 Dressing Status New dressing;Clean, dry & intact 03/22/24 1041 Wound/Incision 03/22/24 Surgical Back (Active) Wound Image 04/05/24 1344 Site Assessment Bleeding;Lihue 04/05/24 1344 Ritika-Wound Assessment Scarred 04/05/24 1344 Wound Length (cm) 0.9 cm 04/05/24 1344 Wound Width (cm) 1.2 cm 04/05/24 1344 Wound Surface Area (cm^2) 1.08 cm^2 04/05/24 1344 Wound Depth (cm) 1 cm 04/05/24 1344 Wound Volume (cm^3) 1.08 cm^3 04/05/24 1344 Wound Healing % -1700 04/05/24 1344 Drainage Description Serosanguineous 04/05/24 1344 Odor None 04/05/24 1344 Drainage Amount Moderate 04/05/24 1344 Treatments Cleansed 04/05/24 1344 Primary Dressing Mesalt rope 03/29/24 1400 Secondary Dressing ABD 03/29/24 1400 Secured with Medfix tape 03/29/24 1400 Dressing Status New dressing;Clean, dry & intact 03/22/24 1041 Wound Bed Granulation (%) 100 % 03/22/24 1041 Tunneling 1 cm 04/05/241343 Tunneling Clock Position of Wound 12 04/05/24 1344 1. Disruption of external operation (surgical) wound, not elsewhere classified, sequela 2. 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 3. Multiple myeloma, remission status unspecified (HCC) Pt ed, reassurance to pt and director of search engine optimization, present for entire visit Snap has been approved by insurance. We will apply today. Reviewed s/s infection Reviewed protein/nutrition Reviewed activity Recheck 2 days for VAC check and change, then WednesdayApril 11 for VAC change. He has chemo on Wednesday. We will try to get him to weekly snap change. Pt agrees with plan. PLAN: Patient examined and evaluated. Patient understands all that has been explained and wishes to proceed with current treatment. Patient understands all risks, benefits, procedures, ritika-operative management, and possible complications. All questions answered and no guarantees made or implied. Treatment: No orders of the defined types were placed in this encounter. Please see attached Discharge Instructions [facility] [id number] History of Present illness Narrative* Mickey Munoz DO - 03/29/2024 1:30 PM EDT Images from the original note were not included. [facility] Wound Care Progress Note CHIEF COMPLAINT: Wound Care HISTORY OF PRESENT ILLNESS: The patient is a 68 y.o. male with history of multiple myeloma. Had spinal surgery in October 2022, states wound area has never been completely healed. Has apparently had radiation to this area as well. Feels this area is slightly improved. Still some drainage. Has only been using mesalt for one day, just received it. Denies constitutional symptoms. REVIEW OF SYSTEMS: Review of Systems Constitutional: Negative. Negative for chills, fatigue and fever. See HPI Respiratory: Negative. Cardiovascular: Negative. Skin: Positive for wound. Negative for color change (from typical for patient) and rash. PHYSICAL EXAM: BP 108/66 Pulse 57 Temp 37.2 C (99 F) Resp 18 Physical Exam Vitals reviewed. Constitutional: General: He is not in acute distress. Appearance: Normal appearance. He is not ill-appearing or toxic-appearing. HENT: Ears: Comments: Hearing to conversational voice is normal. Pulmonary: Effort: Pulmonary effort is normal. Breath sounds: No wheezing (No audible wheeze). Skin: General: Skin is warm. Comments: Proximal wound has 1.2 cm straight in depth. Some slough, cleared with cotton tip swab. Minimal drainage. No tunnel or undermine identified. Distal wound is shallow, but has 1.5 cm tunnel at 12 o'clock. No undermining identified Neither wound appears cellulitic. See photos and measurements. Neurological: Mental Status: He is alert and oriented to person, place, and time. Psychiatric: Thought Content: Thought content normal. Wound/Incision 03/22/24 Surgical Neck Posterior (Active) Wound Image 03/29/24 1342 Site Assessment Pale;Lihue;Sloughing 03/29/24 1342 Ritika-Wound Assessment Lihue;Scarred 03/29/24 1342 Wound Length (cm) 0.9 cm 03/29/24 1342 Wound Width (cm) 0.8 cm 03/29/24 1342 Wound Surface Area (cm^2) 0.72 cm^2 03/29/24 1342 Wound Depth (cm) 1.8 cm 03/29/24 1342 Wound Volume (cm^3) 1.296 cm^3 03/29/24 1342 Wound Healing % 92 03/29/24 1342 Drainage Description Yellow;Serosanguineous 03/29/24 1342 Odor None 03/29/24 1342 Drainage Amount Small 03/29/24 1342 Treatments Irrigation 03/29/24 1342 Primary Dressing Mesalt rope 03/29/24 1400 Secondary Dressing ABD 03/29/24 1400 Secured with Medfix tape 03/29/24 1400 Dressing Status New dressing;Clean, dry & intact 03/22/24 1041 Wound/Incision 03/22/24 Surgical Back (Active) Wound Image 03/29/24 1343 Site Assessment Granulation 03/29/24 1343 Ritika-Wound Assessment Scarred 03/29/24 1343 Wound Length (cm) 0.5 cm 03/29/24 1343 Wound Width (cm) 0.9 cm 03/29/24 1343 Wound Surface Area (cm^2) 0.45 cm^2 03/29/24 1343 Wound Depth (cm) 0.4 cm 03/29/24 1343 Wound Volume (cm^3) 0.18 cm^3 03/29/24 1343 Wound Healing % -200 03/29/24 1343 Drainage Description Serosanguineous 03/29/24 1343 Odor None 03/29/24 1343 Drainage Amount Small 03/29/24 1343 Treatments Irrigation 03/29/24 1343 Primary Dressing Mesalt rope 03/29/24 1400 Secondary Dressing ABD 03/29/24 1400 Secured with Medfix tape 03/29/24 1400 Dressing Status New dressing;Clean, dry & intact 03/22/24 1041 Wound Bed Granulation (%) 100 % 03/22/24 1041 Tunneling 1 cm 03/29/24 1343 Tunneling Clock Position of Wound 12 03/29/24 1343 1. Disruption of external operation (surgical) wound, not elsewhere classified, sequela 2. 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 3. Multiple myeloma, remission status unspecified (HCC) Pt ed, reassurance to pt and director of search engine optimization, present for entire visit Continue mesalt to wounds Discussed NPWT, possibly with CORWIN or snap. (We will submit for snap today, since we do not yet have CORWIN available.) Discussed HBOT, may be an option Reviewed s/s infection Reviewed protein/nutrition Reviewed activity Recheck one wk, sooner prn Pt agrees with plan. PLAN: Patient examined and evaluated. Patient understands all that has been explained and wishes to proceed with current treatment. Patient understands all risks, benefits, procedures, ritika- operative management, and possible complications. All questions answered and no guarantees made or implied. Treatment: Orders Placed This Encounter Procedures Dressing Order: Mesalt rope; Daily; 4x4 gauze, ABDs; Medfix tape Order Specific Question: Primary Dressing Answer: Mesalt rope Order Specific Question: Dressing Frequency Answer: Daily Order Specific Question: Secondary Dressing Answer: 4x4 gauze Order Specific Question: Secondary Dressing Answer: ABDs Order Specific Question: Secured With Answer: Medfix tape Please see attached Discharge Instructions documented in this [facility]07-03-2024 Hospital Discharge instructions* Patient Instructions* Cassidy Bowen RN - 03/29/2024 1:30 PM EDT Follow-up Appointments: Return Appointment in 1 week. Call [place] wound center at [phone], [place] [facility] at [phone], or [facility] Wound center at [phone]. Follow nutritious diet including, increasing protein to 100 grams a day Avoid pressure, friction, shearing to wound area. Wound Care Instructions; Upper back Change the dressing daily Cleanse wound with mild soap and water and pat dry. Apply mesalt ribbon lightly packed into wound with distal wound tunneling at 12 o'clock at 1 cm. Apply dry dressing to cover the wound and secure with tape. Signs and symptoms of wound infection: - fever - flu-like symptoms - pus or unusual drainage - foul odor - worsening of wound - spreading redness or warmth around the wound - increased pain - increasing and/or uncontrolled blood sugar for diabetics Please call the wound center at [phone] if you are experiencing this. If we are closed and youare unable to reach us in person please go to the ER. Wound Center will apply for SNAP vac through insurance for approval If approved, it will begin at the next wound care appointment [facility] documented in this [facility]07-03-2024 [facility] Wound Care Progress Note CHIEF COMPLAINT: Wound Care HISTORY OF PRESENT ILLNESS: The patient is a 68 y.o. male with history of multiple myeloma. Had spinal surgery in October 2022, states wound area has never been completely healed. Has apparently had radiation to this area as well. Feels this area is slightly improved. Still some drainage. Has only been using mesalt for one day, just received it. Denies constitutional symptoms. REVIEW OF SYSTEMS: Review of Systems Constitutional: Negative. Negative for chills, fatigue and fever. See HPI Respiratory: Negative. Cardiovascular: Negative. Skin: Positive for wound. Negative for color change (from typical for patient) and rash. PHYSICAL EXAM: BP 108/66 Pulse 57 Temp 37.2 ?C (99 ?F) Resp 18 Physical Exam Vitals reviewed. Constitutional: General: He is not in acute distress. Appearance: Normal appearance. He is not ill-appearing or toxic-appearing. HENT: Ears: Comments: Hearing to conversational voice is normal. Pulmonary: Effort: Pulmonary effort is normal. Breath sounds: No wheezing (No audible wheeze). Skin: General: Skin is warm. Comments: Proximal wound has 1.2 cm straight in depth. Some slough, cleared with cotton tip swab. Minimal drainage. No tunnel or undermine identified. Distal wound is shallow, but has 1.5 cm tunnel at 12 o'clock. No undermining identified Neither wound appears cellulitic. See photos and measurements. Neurological: Mental Status: He is alert and oriented to person, place, and time. Psychiatric: Thought Content: Thought content normal. Wound/Incision 03/22/24 Surgical Neck Posterior (Active) Wound Image 03/29/24 1342 Site Assessment Pale;Lihue;Sloughing 03/29/24 1342 Ritika-Wound Assessment Lihue;Scarred 03/29/24 1342 Wound Length (cm) 0.9 cm 03/29/24 1342 Wound Width (cm) 0.8 cm 03/29/24 1342 Wound Surface Area (cm^2) 0.72 cm^2 03/29/24 1342 Wound Depth (cm) 1.8 cm 03/29/24 1342 Wound Volume (cm^3) 1.296 cm^3 03/29/24 1342 Wound Healing % 92 03/29/24 1342 Drainage Description Yellow;Serosanguineous 03/29/24 1342 Odor None 03/29/24 1342 Drainage Amount Small 03/29/24 1342 Treatments Irrigation 03/29/24 1342 Primary Dressing Mesalt rope 03/29/24 1400 Secondary Dressing ABD 03/29/24 1400 Secured with Medfix tape 03/29/24 1400 Dressing Status New dressing;Clean, dry & intact 03/22/24 1041 Wound/Incision 03/22/24 Surgical Back (Active) Wound Image 03/29/24 1343 Site Assessment Granulation 03/29/24 1343 Ritika-Wound Assessment Scarred 03/29/24 1343 Wound Length (cm) 0.5 cm 03/29/24 1343 Wound Width (cm) 0.9 cm 03/29/24 1343 Wound Surface Area (cm^2) 0.45 cm^2 03/29/24 1343 Wound Depth (cm) 0.4 cm 03/29/24 1343 Wound Volume (cm^3) 0.18 cm^3 03/29/24 1343 Wound Healing % -200 03/29/24 1343 Drainage Description Serosanguineous 03/29/24 1343 Odor None 03/29/24 1343 Drainage Amount Small 03/29/24 1343 Treatments Irrigation 03/29/24 1343 Primary Dressing Mesalt rope 03/29/24 1400 Secondary Dressing ABD 03/29/24 1400 Secured with Medfix tape 03/29/24 1400 Dressing Status New dressing;Clean, dry & intact 03/22/24 1041 Wound Bed Granulation (%) 100 % 03/22/24 1041 Tunneling 1 cm 03/29/24 1343 Tunneling Clock Position of Wound 12 03/29/24 1343 1. Disruption of external operation (surgical) wound, not elsewhere classified, sequela 2. 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 3. Multiple myeloma, remission status unspecified (HCC) Pt ed, reassurance to pt and director of search engine optimization, present for entire visit Continue mesalt to wounds Discussed NPWT, possibly with CORWIN or snap. (We will submit for snap today, since we do not yet have CORWIN available.) Discussed HBOT, may be an option Reviewed s/s infection Reviewed protein/nutrition Reviewed activity Recheck one wk, sooner prn Pt agrees with plan. PLAN: Patient examined and evaluated. Patient understands all that has been explained and wishes to proceed with current treatment. Patient understands all risks, benefits, procedures, ritika-operative management, and possible complications. All questions answered and no guarantees made or implied. Treatment: Orders Placed This Encounter Procedures Dressing Order: Mesalt rope; Daily; 4x4 gauze, ABDs; Medfix tape Order Specific Question: Primary Dressing Answer: Mesalt rope Order Specific Question: Dressing Frequency Answer: Daily Order Specific Question: Secondary Dressing Answer: 4x4 gauze Order Specific Question: Secondary Dressing Answer: ABDs Order Specific Question: Secured With Answer: Medfix tape Please see attached Discharge Instructions [facility] [id number] History of Present illness Narrative* Mickey Munoz DO - 03/22/2024 10:00 AM EDT Images from the original note were not included. [facility] [address] [place] [address] Loc: [phone] Wound Care Visit - New Patient Progress Note CHIEF COMPLAINT: Wound Care HISTORY OF PRESENT ILLNESS: The patient is a 68 y.o. male with history of multiple myeloma. Had spinal surgery in October 2022, states wound area has never been completely healed. Has apparently had radiation to this area as well. Currently has 2 small open areas. Some drainage. PAST MEDICAL HISTORY Past Medical History: Diagnosis Date Cancer (CMS/HCC) (HCC) Disease of thyroid gland PAST SURGICAL HISTORY Past Surgical History: Procedure Laterality Date BACK SURGERY N/A 10/2022 Medications reviewed Medical history reviewed Allergies reviewed Current Medications: Current Outpatient Medications: acetaminophen (Tylenol) 500 MG tablet, Take 1,000 mg by mouth every 6 hours as needed for mild pain(1-3)., Disp: , Rfl: acyclovir (Zovirax) 400 MG tablet, Take 400 mg by mouth 2 times daily., Disp: , Rfl: amLODIPine (Norvasc) 10 MG tablet, Take 10 mg by mouth daily., Disp: , Rfl: apixaban (Eliquis) 5 MG tablet, Take 5 mg by mouth 2 times daily., Disp: , Rfl: Ascorbic Acid (vitamin C) 1000 MG tablet, Take 1,000 mg by mouth in the morning and 1,000 mg in theevening., Disp: , Rfl: BACLOFEN PO, Take 5 mg by mouth in the morning and 5 mg in the evening., Disp: , Rfl: benzonatate (Tessalon) 100 MG capsule, Take 100 mg by mouth 3 times daily as needed for cough. Do not crush or chew., Disp: , Rfl: bisacodyl (Dulcolax) 10 MG suppository, Insert into the rectum Daily as needed for constipation., Disp: , Rfl: Calcium Carbonate (CALCIUM 600 PO), Take 600 mg by mouth in the morning and 600 mg in the evening.,Disp: , Rfl: cholecalciferol (Vitamin D-3) 125 MCG (5000 UT) capsule, Take 5,000 Units by mouth daily., Disp: , Rfl: dexAMETHasone (Decadron) 4 MG tablet, Take 4 mg by mouth every 28 (twenty-eight) days., Disp: , Rfl: diphenhydrAMINE HCl (BENADRYL ALLERGY PO), Take by mouth., Disp: , Rfl: ferrous sulfate 325 (65 Fe) MG tablet, Take 325 mg by mouth daily (with breakfast)., Disp: , Rfl: gabapentin (Neurontin) 100 MG capsule, Take 100 mg by mouth 3 times daily., Disp: , Rfl: guaiFENesin (Robitussin) 100 MG/5ML syrup, Take 200 mg by mouth in the morning and 200 mg at noon and 200 mg in the evening and 200 mg before bedtime., Disp: , Rfl: ibuprofen 400 MG tablet, Take 400 mg by mouth every 8 hours as needed for moderate pain (4-6)., Disp: , Rfl: levothyroxine (Synthroid, Levoxyl) 100 MCG tablet, Take 100 mcg by mouth every morning (before breakfast)., Disp: , Rfl: magnesium 250 MG tablet, Take by mouth daily., Disp: , Rfl: magnesium hydroxide (Milk of Magnesia) 400 MG/5ML suspension, Take 30 mL by mouth Nightly., Disp: ,Rfl: MELATONIN PO, Take by mouth., Disp: , Rfl: metoprolol tartrate (Lopressor) 50 MG tablet, Take 50 mg by mouth 2 times daily., Disp: , Rfl: Nutritional Supplements (ARIEL PO), Take by mouth., Disp: , Rfl: omeprazole OTC (PriLOSEC OTC) 20 MG EC tablet, Take 20 mg by mouth every morning (before breakfast). Do not crush, chew, or split., Disp: , Rfl: polyethylene glycol, PEG, 3350 (Miralax) 17 g packet, Take by mouth., Disp: , Rfl: sennosides (Senokot) 8.6 MG tablet, Take 1 tablet by mouth 2 times daily., Disp: , Rfl: simethicone (Mylicon) 80 MG chewable tablet, Chew 80 mg in the morning and 80 mg at noon and 80 mg before bedtime., Disp: , Rfl: REVIEW OF SYSTEMS: Review of Systems Constitutional: Negative. Negative for chills, fatigue and fever. See HPI Respiratory: Negative. Cardiovascular: Negative. Skin: Positive for wound. Negative for color change (from typical for patient) and rash. PHYSICAL EXAM: BP 93/57 Pulse (!) 48 Temp 37 C (98.6 F) Resp 18 Ht 5' 5 (1.651 m) Wt 174 lb (78.9 kg) BMI 28.96 kg/m Physical Exam Vitals reviewed. Constitutional: General: He is not in acute distress. Appearance: Normal appearance. He is not ill-appearing or toxic-appearing. HENT: Ears: Comments: Hearing to conversational voice is normal. Pulmonary: Effort: Pulmonary effort is normal. Breath sounds: No wheezing (No audible wheeze). Skin: General: Skin is warm. Comments: Proximal wound has 1.5 cm straight in depth. Some slough, cleared with cotton tip swab. Minimal drainage. No tunnel or undermine identified. Distal wound is shallow, but has 2 cm tunnel at 12 o'clock. No undermining identified Neither wound appears cellulitic. See photos and measurements. Neurological: Mental Status: He is alert and oriented to person, place, and time. Psychiatric: Thought Content: Thought content normal. Wound/Incision 03/22/24 Surgical Neck Upper;Midline;Posterior (Active) Wound Image 03/22/24 1041 Site Assessment [place];Pale;Sloughing 03/22/24 1041 Ritika-Wound Assessment [place];Scarred 03/22/24 1041 Wound Length (cm) 7.9 cm 03/22/24 1041 Wound Width (cm) 1 cm 03/22/24 1041 Wound Surface Area (cm^2) 7.9 cm^2 03/22/24 1041 Wound Depth (cm) 2 cm 03/22/24 1041 Wound Volume (cm^3) 15.8 cm^3 03/22/24 1041 Drainage Description Yellow;Serosanguineous 03/22/24 1041 Odor None 03/22/24 1041 Drainage Amount Small 03/22/24 1041 Treatments Cleansed 03/22/24 1041 Primary Dressing Mesalt rope 03/22/24 1041 Secondary Dressing Silicone foam borders (multiple sizes) 03/22/24 1041 Dressing Status New dressing;Clean, dry & intact 03/22/24 1041 Wound/Incision 03/22/24 Surgical Back Upper;Midline;Distal (Active) Site Assessment Granulation 03/22/24 1041 Ritika-Wound Assessment Scarred 03/22/24 1041 Wound Length (cm) 0.3 cm 03/22/24 1041 Wound Width (cm) 0.4 cm 03/22/24 1041 Wound Surface Area (cm^2) 0.12 cm^2 03/22/24 1041 Wound Depth (cm) 0.5 cm 03/22/24 1041 Wound Volume (cm^3) 0.06 cm^3 03/22/24 1041 Primary Dressing Mesalt rope 03/22/24 1041 Secondary Dressing Silicone foam borders (multiple sizes) 03/22/24 1041 Dressing Status New dressing;Clean, dry & intact 03/22/24 1041 Wound Bed Granulation (%) 100 % 03/22/24 1041 Tunneling 1.5 cm 03/22/24 1041 Tunneling Clock Position of Wound 12 03/22/24 1041 1. Disruption of external operation (surgical) wound, not elsewhere classified, sequela 2. Multiple myeloma, remission status unspecified (HCC) 3. 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 PLAN: Patient examined and evaluated. Patient understands all that has been explained and wishes to proceed with current treatment. Patient understands all risks, benefits, procedures, ritika- operative management, and possible complications. All questions answered and no guarantees made or implied. Treatment: Orders Placed This Encounter Procedures Wound Care OP Follow-up Follow up 1 week Dressing Order: Mesalt rope; Daily; 4x4 gauze, ABDs; Paper tape Order Specific Question: Primary Dressing Answer: Mesalt rope Order Specific Question: Dressing Frequency Answer: Daily Order Specific Question: Secondary Dressing Answer: 4x4 gauze Order Specific Question: Secondary Dressing Answer: ABDs Order Specific Question: Secured With Answer: Paper tape Please see attached Discharge Instructions documented in this [facility]06-26-2024 Hospital Discharge instructions* Patient Instructions* Gracy Tran RN - 03/22/2024 10:00 AM EDT Follow-up Appointments: Return Appointment in 1 week. Call [place] wound center at [phone], [facility] at [phone], or [facility] at [phone]. Follow nutritious diet including, increasing protein to 100 grams a day Avoid pressure, friction, shearing to wound area. Wound Care Instructions; Upper back Cleanse wound with mild soap and water and pat dry. Apply mesalt ribbon lightly packed into wound with distal wound tunneling at 12 o'clock at 1.5 cm. Apply dry dressing to cover the wound and secure with tape. Signs and symptoms of wound infection: - fever - flu-like symptoms - pus or unusual drainage - foul odor - worsening of wound - spreading redness or warmth around the wound - increased pain - increasing and/or uncontrolled blood sugar for diabetics Please call the wound center at [phone] if you are experiencing this. If we are closed and youare unable to reach us in person please go to the ER. documented in this [facility]06-12-2024 History of Present illness Narrative* Gisel Wolf MD - 03/08/2024 11:00 AM EDT Images from the original note were not included. Attending physician: Gisel Wolf MD Referring physician: Jenn Kim Dr, MD Scott E Wilkins My recommendations will become communicated to the referring physician via electronic medical chartor through US mail. CHIEF COMPLAINT: [facility] HISTORY OF PRESENT ILLNESS: Armand Barron is a 68 y.o. male who presents to the Plasma cell dyscrasia clinic today at the [facility] for 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 Please allow me to review the patient's oncological history to date: He had been having worsening pain over the course of a year. He presented to the hospital on the 11/10/2022 with progressive weakness and loss of sensation in bilateral legs. This has been ongoing for about 2 weeks. MRI of spine showed compression fracture at T2 and T7 levels as well as the presence of a substantial epidural tumor at T7 with cord compression. There were also multiple bone lesions throughout the spine and pelvis. CT chest abdomen and pelvis on 11/10/2022: Multiple lytic lesions throughout the skeleton, mildly enlarged hilar and mediastinal lymph nodes but no solid tumor or masses. 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 Radiation Oncology was consulted and he underwent MOPP radiation to that area. Blood work done on 11/15/2022: WBC 11.7, hemoglobin 10.7, platelet 204, creatinine 0.64, calcium 8.6 Repeat blood work on 11/13/2022: Centerview 20.8, lambda 0.86, kappa/lambda ratio 24.3 No bone marrow biopsy done. Patient had been doing therapy at [facility] in [place] and staff noted that his incision began looking erythematous, with copious drainage. He was sent back to [facility] for evaluation by neurosurgery. Went to IR on 12/02 for drain placement and fluid sent for culture, no growth. He remained clinically very stable. Patient discharged to return to [facility] in [place] The patient received a course of 20 Dan delivered in 5 fractions to the thoracic spine encompassing T2-T7 (T1-T8). He was started on DRD on 03/08/23. There was delays due to delayed wound healing. INTERVAL HISTORY: The patient is here today for a visit. He is accompanied to the visit by his sister. Overall he thinks he is doing well. He continues to live in a facility. He has been following Dr Perez. He is getting daratumumab injections every 4 weeks. He is due for his next injection next week. He feels the weakness in his legs are getting better. He is now walking more. He continues to work with PT/OT. He ambulate with assist. He continues to endorse pain in his his shoulder- he thinks this is improved. He also endorses bloating in stomach. He denies diarrhea. He denies BRBPR or melena. He continues to be on eliquis. He still has a urinary catheter. He denies hematuria. He has not had infectious complications sincehis last visit. REVIEW OF SYSTEMS: Constitutional: (-) fever, (-) chills, (-) night sweats, (-) weight loss, (-) fatigue Eyes: (-) visual changes, (-) diplopia, (-) redness ENMT: (-) sinus congestion, (-) rhinorrhea, (-) dysphagia Cardio: (-) chest pain, (-) shortness of breath, (-) orthopnea, (-) PND Pulmonary: (-) cough, (-) sputum production, (-) hemoptysis GI: (-) abdominal pain, (-) nausea, (-) diarrhea, (-) constipation, : (-) dysuria, (-) hematuria, (-) frequency Musc: (-) joint pain, (-) muscle pain, (-) joint redness Skin: (-) Rash, (-) Pruritus Neuro: see hpi Psychiatric: (-) depression Endo: (-) heat intolerance, (-) cold intolerance, (-) polyuria, (-) polyphagia Heme: (-) lymph nodes, (-) bruising, (-) easy bleeding Allergic/Immun: (-) frequent infections (-) seasonal allergies Current Outpatient Medications: acetaminophen 500 MG tablet, Take 2 tablets by mouth Every 6 hours as needed., Disp: , Rfl: amLODIPine 10 MG tablet, Take by mouth., Disp: , Rfl: Atorvastatin 10 MG tablet, Take by mouth., Disp: , Rfl: Cholecalciferol 1.25 MG (43121 UT) capsule, Take by mouth., Disp: , Rfl: Doxycycline monohydrate 100 MG capsule, Take 1 capsule by mouth Twice daily., Disp: , Rfl: Eliquis 5 MG tablet, Take by mouth every 12 hours., Disp: , Rfl: Metoprolol 50 MG tab regular release, Take 1 tablet by mouth 2 times daily., Disp: , Rfl: omeprazole [address] capsule, TAKE 1 CAPSULE BY MOUTH 1 TIME EACH DAY. DO NOT CRUSH OR CHEW., Disp: , Rfl: oxycodone 5 MG capsule, Take 1 capsule by mouth Every 6 hours as needed., Disp: , Rfl: PEG 3350 17 g Pack, MIX 1 PACKET IN 4-6OZ OF BEVERAGE AND DRINK BY MOUTH EVERY DAY FOR 3 DAYS, Disp: , Rfl: Revlimid 15 MG capsule, , Disp: , Rfl: traZODone 50 MG tablet, Take 1 tablet by mouth Every morning as needed., Disp: , Rfl: PMH: hypertension, hyperlipidemia, hypothyroidism, GERD, and recent diagnosis of multiple myeloma with T2 and T7 pathological fractures with epidural tumor and subsequent cord compression. He underwent thoracic decompression and removal of T2 and T7 epidural tumor by laminectomy, facetectomy, and foraminotomy as well as posterior thoracic fusion of C7-T4 by screw fixation on 11/11/[address] Tao PSH : epidural tumor and subsequent cord compression. 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 EOMI ENMT: Neck supple. No JVD LYMPHATIC: No cervical, axillary, or supraclavicular adenopathy. RESP: Clear to auscultation bilaterally posteriorly, no wheezes. No rhonchi CARDIO: Regular rate and rhythm. No rubs murmurs or gallops, ABD: Abdomen soft, non-tender. No masses or organomegaly. BACK: No vertebral tenderness. Full Range of motion EXTREMITIES: No significant edema. NEURO: Nonfocal. CN II-XII WNL,decreased strength in bilateral LEs, bilateral plantars downgoing. LABS: I performed an extensive review of the patient's outside records which include but are not limited to records, faxed Documents and when indicated review of records care everywhere. The pertinent laboratory findings are summarized below. I have reviewed all the laboratory tests completed for today's clinic visit. Blood work 11/10/2022: SPEP presence of small M protein, kappa 137.4, lambda 1.2, kappa/lambda ratio 114.5, IgA 180, IgM 23, IgG 1132 Results for orders placed or performed in visit on 03/08/24 COMPREHENSIVE METABOLIC PANEL Result Value Ref Range Sodium 139 135 - 145 mmol/L Potassium 3.9 3.5 - 5.0 mmol/L Chloride 102 98 - 108 mmol/L BUN 14 7 - 25 mg/dL Creatinine 0.87 0.70 - 1.30 mg/dL Glucose 90 70 - 99 mg/dL Bilirubin Total 0.5 <1.5 mg/dL Albumin 3.7 3.5 - 5.0 g/dL Total Protein 6.2 (L) 6.4 - 8.3 g/dL AST 12 10 - 39 U/L ALP 48 32 - 126 U/L Calcium 8.8 8.6 - 10.5 mg/dL CO2 31 21 - 31 mmol/L ALT 9 (L) 10 - 52 U/L Bun/Crea Ratio 16 Osmolality (Calculated) 291 278 - 305 mOsm/kg Anion Gap 10 7 - 17 mmol/L eGFR, CKD-EPI, Male >90 >=60 mL/min/1.73m2 CBC AND ELECTRONIC DIFF Result Value Ref Range WBC Count 1.93 (L) 3.73 - 10.10 K/uL RBC Count 4.56 4.38 - 5.83 M/uL Hemoglobin 12.7 (L) 13.4 - 16.8 g/dL Hematocrit 40.3 39.6 - 48.8 % Mean Cell Volume 88.4 79.0 - 94.5 fL Mean Cell Hgb 27.9 26.1 - 33.3 pg Mean Cell Hgb Conc 31.5 (L) 31.9 - 36.5 g/dL RBC Distribution 16.1 (H) 10.9 - 14.3 % Platelet Count 115 (L) 146 - 337 K/uL Mean Platelet Volume 11.8 8.7 - 12.3 fL DIFF STATUS Electronic Differential Segs + Bands Auto 53.8 % Immature Grans % 0.0 % Lymphocyte % Auto 16.6 % Monocyte % Auto 17.1 % Eosinophil % Auto 10.9 % Basophil % Auto 1.6 % Nucleated RBC 0.0 <=0.2 /100 WBC Segs + Bands,Absolute Auto 1.04 (L) 1.57 - 6.19 K/uL Immature Grans Absolute <0.04 <=0.07 K/uL Abs Lymph Auto 0.32 (L) 0.83 - 3.57 K/uL Abs [place] Auto 0.33 0.24 - 0.93 K/uL Abs Eos Auto 0.21 0.00 - 0.48 K/uL Abs Baso Auto <0.04 0.00 - 0.09 K/uL IMAGING: MRI spine 12/02/22 At the T7 level, there has been progression of a severe compression fracture and retropulsion of bony fragments into the spinal canal. Posterior decompression has been performed at this level. There is compression of the cord at this level with increased cord signal intensity as above. The overall extent of cord compression at this level is decreased compared to the prior postoperative examination from 11/10/2022. Resection of the previously noted mass at the T2 level. There is a small residual enhancing tissue in the left T2-T3 neural foramen, which may represent granulation tissue or an element of residual mass. Cord compression in this area has improved. Enhancing masses in the T10 and T11 vertebral bodies, not significantly changed. In the posterior paraspinal soft tissues, there is a large fluid collection at the midline and slightly right of midline, which extends from approximately the C5 level to the T8 level. There is some extension of the fluid collection to the laminectomy defects at T2 and T7. Some peripheral enhancement is present. This may represent a postoperative seroma, however, sterility is not confirmed. Clinical correlation is CT C spine 12/01/22 1. Interval progression of severe pathologic fracture of the T7 vertebral body now with vertebral plana, extensive destructive changes including the left-sided pedicle. Interval development of 5 mm of retropulsion of the bone fragment into the spinal canal to the right of midline now with mild compression of the right thoracic spinal cord not seen on the prior exam with 6 mm midline AP thecal sac diameter. 2. Postoperative changes of posterior instrumented fixation from C7 to T4 as noted on 11/11/2022 bridging pathologic fracture at the T2 level. New superficial fluid collection in the posterior soft tissues overlying the surgical bed without communication with the thecal sac likely a postoperative se leonard measuring 6 x 11 x 7 cm, this is unlikely to represent an abscess. PATHOLOGY: [id number] (11/11/2022) A. Spinal epidural mass: Centerview-restricted plasma cell neoplasm Bone marrow 01/29/23 (A-C) Bone marrow specimen [biopsy, clot section, aspirate smear, peripheral blood smear]: -- Involvement by plasma cell neoplasm. Note: The bone marrow is mildly hypercellular (50% cellularity) and contains a kappa-restricted plasma cell neoplasm in a background of preserved trilineage hematopoiesis. Plasma cells comprise approximately 25% of marrow cellularity. Chromosome analysis as well as myeloma FISH studies will be performed for further evaluation. Cytogenetic analysis revealed a Normal karyotype. Myeloma Profile [Interphase FISH]: Negative for loss of TP53, gain/amplification of 1q, del(1p), -13/del(13q), IGH rearrangements, del(17p), +5, +9, +11, +15. ASSESSMENT AND PLAN: # KLC MM He presented to the hospital on the 11/10/2022 with progressive weakness and loss of sensation in bilateral legs. This has been ongoing for about 2 weeks. MRI of spine showed compression fracture at T2 and T7 levels as well as the presence of a substantial epidural tumor at T7 with cord compression. There were also multiple bone lesions throughout the spine and pelvis. CT chest abdomen and pelvis on 11/10/2022: Multiple lytic lesions throughout the skeleton, mildly enlarged hilar and mediastinal lymph nodes but no solid tumor or masses. 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 Blood work done on 11/15/2022: WBC 11.7, hemoglobin 10.7, platelet 204, creatinine 0.64, calcium 8.6 Repeat blood work on 11/13/2022: Centerview 20.8, lambda 0.86, kappa/lambda ratio 24.3 BM Bx: 25% PC The patient received a course of 20 Dan delivered in 5 fractions to the thoracic spine encompassing T2-T7 (T1-T8). I had a detailed discussion with Armand Zimmermandenisse about the pathophysiology as well as treatment options for multiple myeloma. The patient understands that this is an essence an incurable disease and treatment is geared towards prolonging survival as well as improving quality of life. We discussed the current set of care would be induction chemotherapy with a multi drug regimen followed by consideration of autologous stem cell transplant in selected patients. I do not think he is a transplant candidate at this time. I had recommended induction with therapy with combination of daratumumab, lenalidomide and dexamethasone as per the SON trial. There were delays due delayed wound healing We will check his plasma cell markers. I still do not think he is a transplant candidate and would recommend he continuing on the same regimen of DRD for at least 6 cycles. He was then placed on maintenance daratumumab every 28 days. I personally reviewed his MM markers- light chains have normalized. This would be consistent with aCR- we would need a bone marrow to confirm this though. I agree with continuing maintenance daratumumab every 4 weeks. It would be ok for him to take a break off lenalidomide if he would like to. # Myeloma bone disease: - continue xgeva to reduce the risk of skeletal related events, decrease bone pain- q month during induction followed by q3 months for total 2 years - Calcium (1200 mg) and vitamin D (800-1000 units) daily # Secondary immunodeficiency: continue acyclovir 400 mg BID for HSV/VZV prophylaxis # h/o VTE:- continue eliquis # other chronic medical problems: - he will follow up with his other providers. # RTC 6 months Gisel Wolf MD [employer] Hematology 03/08/24 Pager # [phone] This note was generated with the use of voice dictation software. Errors may be present despite attempts at proofreading. Please page/call with any questions. [facility] Instructions* Patient Instructions* Gisel Wolf MD - 03/08/2024 11:00 AM EDT Medical team Doctor: Dr. Gisel Wolf Primary RN: Rayna LOPEZ Contact numbers Clinic phone: [phone] Clinic fax: [phone] Plan for today - follow up with Dr conrad - continue daratumumab - ok to take a break off revlimid - follow up in 6 months [facility] Progress note Author Te [facility] January 14, 2024 5:14pm Note Date/Time January 13, 2024 11: 51am [facility] [address] [place] [address] Progress Note - Wound Care 01/13/24 1151 MR#: [id number] Acct: [id number] Name: ARMAND BARRON Rep #:[id number] 2 : 1955 68 From: Te chavez MD PCP: Dr. Iraida Balderas MD Status:REG RCR Location: History of Present Illness Date of Service: 01/13/24 Chief Complaint: Non healing ulcer posterior neck History of Wound: Mr. Barron is a 68-year-old who was referred to this facility due to nonhealing ulcer posterior neck. Had surgery in October due to multiplemyeloma. Surgery was uneventful with most of the surgical site healed but 2 areas which have not healed. Currently resides in an assisted living facility. Wound care - Silver dressings daily. Still follows up closely with oncology and is on monthly chemotherapy regimen and dexamethasone. He also had radiation therapy to the area. Wound culture from 12/09/23 was negative. Prealbumin from 08/13/23 was 19.8. Encouraged nutritional supplementation with protein to help the healing process. Today he denies fever. His appetite is ok. Progress of Wound: No new concerns at this time. No significant drainage. He states that he reached out to his surgeon and plan was to reach out to this facility however, we have not heard anything. Objective Data Objective Data Vital Signs: Vital Signs Temp Pulse Resp BP O2 Del Method 96.6 F L 44 L 13 99/51 L Room Air 01/13/24 10:35 01/13/24 10:35 01/13/24 10:35 01/13/24 10:35 12/30/23 10:54 Oxygen Delivery Method Room Air Weight: 165 lb Body Mass Index (BMI) 27.4 Lab / Micro Data Micro: Microbiology 12/30/23 11:26 Wound - Back Gram Stain - Final 12/30/23 11:26 Wound - Back Wound Culture - Final Meth. resistant Staph. aureus Streptococcus agalactiae (B) Staphylococcus capitis 12/30/23 11:26 Wound - Back Anaerobic Culture - Final No anaerobic bacteria isolated. 12/30/23 11:22 Wound - Back Gram Stain - Final 12/30/23 11:22 Wound - Back Wound Culture - Final Meth. resistant Staph. aureus 12/30/23 11:22 Wound - Back Anaerobic Culture - Final No anaerobic bacteria isolated. Charges/Coding Procedures Integumentary [id number]: [id number] Marley subq tissue 20 sq cm/< Physical Exam Const alert, oriented x3 and no apparent distress General Appearance: cooperative HEENT normocephalic and head/scalp atraumatic Face and Sinus: normal facial exam Eyes EOMs intact bilaterally General Eye: normal appearance of both eyes Neck full ROM General: normal visual inspection Resp normal respiratory effort Effort and Inspection: able to speak in complete sentences Skin Wounds: wounds noted Neuro oriented x3 and CN's II-XII intact bilaterally Psych mental status grossly normal, thought process normal, cooperative, affect normaland speech normal Debridement Note Debridement Note Wound debrided: Upper back (superior cervical) Type of Debridement: Excisional debridement Anesthesia Used: 5% Lidocaine Gel Depth: Down to and including healthy tissue and in the subcutaneous layer Percentage of wound debrided: 100 Instrument Used: 3mm curette Tissue Removed: Slough and devitalized tissue Severity: Fat Layer Exposed Bleeding Controlled with: Pressure and Compression and gauze Patient tolerated procedure: Patient tolerated procedure well Post-Debridement Measurements and Additional Note: Post-Debridement Measurements/Treatment WC - Nurse 1 - General Ulcer Assessment Start: 12/30/23 10:54 Freq: Status: Active Protocol: RAUL Activity Type Activity Date Activity User E-sign Co-sign Detail Recorded Client Recorded Date Recorded By Document 12/30/23 10:54 GM Desktop 12/30/23 11:07 GM Document 01/13/24 10:35 ML Desktop 01/13/24 10:42 ML 12/30/23 01/13/24 10:54 10:35 - Today's Visit Information Type of service Follow-up Visit Follow-up Visit (Physician/LOCK TENDER (Physician/LOCK TENDER ) ) Arrival Mode Wheelchair Wheelchair Transfer Assistance None None Patient Identification Verified (Name & Yes Yes ) Patient Requires Transmission-Based No No Precautions Height and Weight Body Mass Index (BMI) 27.4 27.4 BMI Classification Overweight Overweight Vital Signs Temperature (97.8 F-99.1 F) 98.6 F 96.6 F L Temperature Source Temporal Temporal Pulse Rate (60-100) 52 L 44 L Pulse Location Monitor Monitor Respiratory Rate (12-18) 18 13 Respiratory rate source Observation Observation Oxygen Delivery Method Room Air Blood Pressure (90/60-120/80) 122/61 H 99/51 L Blood Pressure Mean (mm Hg) 81 67 Source Monitor Monitor Position Sitting Sitting Blood Pressure Location Right Arm Left Arm History Since Last Visit- (Skip if this is Patient's initial visit) Have you changed medications since your No No last visit? Any new allergies or adverse reactions No No Had a fall/change in ADL's that may No No increase risk of falls Signs or symptoms of abuse and/or No No neglect since last visit Have you been in the hospital since your No No last visit? Has dressing in place as prescribed Yes Yes Has compression in place as prescribed N/A N/A Has offloadiing in place as prescribed N/A N/A Experienced any changes in pain level or No No management Left Footwear Regular Shoe Right Footwear Regular Shoe Pain Scale: 0-10 Numeric Is Patient Pain Free? No Yes thoracis/cervical -Intensity 2 -Duration (hours) Chronic -Pain Behavior No Change in Behavior -Alleviating Factors/Interventions Medication,Will continue to monitor - Nurse 1 - General Ulcer Measurement Start: 12/30/23 10:54 Freq: Status: Active Protocol: Activity Type Activity Date Activity User E-sign Co-sign Detail Recorded Client Recorded Date Recorded By Document 12/30/23 10:54 GM Desktop 12/30/23 11:07 GM Document 01/13/24 10:35 ML Desktop 01/13/24 10:42 ML 12/30/23 01/13/24 10:54 10:35 Wound Center Nurse 1 #2- CERVICAL INFERIOR WOUND (SURGICAL) -Current Size (cm) - Length 0.8 -Current Size (cm) - Width 0.3 -Current Size (cm) - Depth 1 0.1 -Total Square Cm 0.24 -Photo Taken No No -Epithelialization Large 67-100% Medium 34-66% -Tunneling No No -Undermining/Tunneling No No -Circular Undermining No No -Exudate Amt Medium Medium -Exudate Type Purulent Serosanguineous -Wound Margin Distinct, Distinct, Outline Outline Attached Attached -Granulation Amt Medium (34-66%) -Slough/Fibrin Yes -Necrosis Amt Medium (34-66%) -Texture (Ritika-wound Skin Appearance) Assessed No Abnormality -Moisture (Ritika-wound Skin Appearance) Assessed No Abnormality -Color (Ritika-wound Skin Appearance) Assessed No Abnormality -Temperature (Ritika-wound Skin No Abnormality No Abnormality Appearance) (Pt Warm) (Pt Warm) -Tenderness on Palpation (Ritika-wound Yes No Skin Appearance) -Ulcer Cleansing Rinsed/ Rinsed/ Irrigated with Irrigated with Saline Saline -Foul Odor after Cleansing No No -Anesthetic Used 5% Lidocaine 5% Lidocaine Gel Gel #1- SUPERIOR CERIVICAL SPINE (SURGICAL) -Current Size (cm) - Length 0.5 0.8 -Current Size (cm) - Width 0.5 0.5 -Current Size (cm) - Depth 1 0.1 -Total Square Cm 0.25 0.40 -Photo Taken No -Epithelialization Medium 34-66% -Tunneling Yes -Tunneling Position (O'clock) 2 -Tunneling Distance (cm) 3 -Undermining/Tunneling No -Circular Undermining No No -Exudate Amt None Present Medium -Exudate Type Purulent Serosanguineous -Wound Margin Distinct, Distinct, Outline Outline Attached Attached -Granulation Amt Medium (34-66%) -Slough/Fibrin Yes -Necrosis Amt Medium (34-66%) -Necrotic Tissue Type Adherent Slough -Texture (Ritika-wound Skin Appearance) Assessed No Abnormality -Moisture (Ritika-wound Skin Appearance) Assessed No Abnormality -Color (Ritika-wound Skin Appearance) Assessed No Abnormality -Temperature (Ritika-wound Skin No Abnormality No Abnormality Appearance) (Pt Warm) (Pt Warm) -Tenderness on Palpation (Ritika-wound No Skin Appearance) -Ulcer Cleansing Rinsed/ Rinsed/ Irrigated with Irrigated with Saline Saline -Foul Odor after Cleansing No -Anesthetic Used 5% Lidocaine 5% Lidocaine Gel Gel WC - Nurse 2 - General Ulcer CM Notes Start: 12/30/23 10:54 Freq: Status: Active Protocol: Activity Type Activity Date Activity User E-sign Co-sign Detail Recorded Client Recorded Date Recorded By Document 12/30/23 11:12 Desktop 12/30/23 11:30 Document 01/13/24 11:07 Desktop 01/13/24 11:16 12/30/23 01/13/24 11:12 11:07 Wound Center Nurse 2 #2- CERVICAL INFERIOR WOUND (SURGICAL) -Time 11:13 11:07 -Correct Patient Yes Yes -Correct Side, Site, Position Yes Yes -Correct Procedure Yes Yes -Procedure Performed Yes Yes -Type of Procedure Debridement Debridement -Clinical Debridement Subcutaneous Subcutaneous -Tissue Removed Subcutaneous Subcutaneous -Post Debridement (cm) - Length 0.6 0.6 -Post Debridement (cm) - Width 0.6 0.8 -Post Debridement (cm) - Depth 2.8 2.3 -Total Square (Post) (cm) 0.36 0.48 -Area of Debridement (cm) - Length 0.6 0.6 -Area of Debridement (cm) - Width 0.6 0.8 -Total Square (Area) (cm) 0.36 0.48 -Tunneling No No -Undermining/Tunneling No -Circular Undermining No -Wound/Ulcer Outcome Not Healed Not Healed -Ulcer Cleansing Rinsed/ Rinsed/ Irrigated with Irrigated with Saline Saline -Foul Odor after Cleansing No No -Bioengineered Tissue No -Bleeding Controlled with Pressure Pressure -Treatment Response Procedure Procedure Tolerated Well Tolerated Well -Debridement - Subq, 1st 20sq cm Yes Yes #1- SUPERIOR CERIVICAL SPINE (SURGICAL) -Time 11:13 11:07 -Correct Patient Yes Yes -Correct Side, Site, Position Yes Yes -Correct Procedure Yes Yes -Procedure Performed Yes Yes -Type of Procedure Debridement Debridement -Clinical Debridement Subcutaneous Subcutaneous -Tissue Removed Subcutaneous Subcutaneous -Post Debridement (cm) - Length 0.5 0.7 -Post Debridement (cm) - Width 0.3 0.3 -Post Debridement (cm) - Depth 2.5 2.3 -Total Square (Post) (cm) 0.15 0.21 -Area of Debridement (cm) - Length 0.5 0.7 -Area of Debridement (cm) - Width 0.3 0.3 -Total Square (Area) (cm) 0.15 0.21 -Tunneling No No -Undermining/Tunneling No No -Circular Undermining No No -Wound/Ulcer Outcome Not Healed Not Healed -Ulcer Cleansing Rinsed/ Rinsed/ Irrigated with Irrigated with Saline Saline -Foul Odor after Cleansing No No -Bioengineered Tissue No No -Bleeding Controlled with Pressure Pressure -Treatment Response Procedure Procedure Tolerated Well Tolerated Well -Debridement - Subq, 1st 20sq cm No No Pain Scale: 0-10 Numeric Is Patient Pain Free? Yes Yes - Nurse 3 - General Ulcer D/C NN Start: 12/30/23 10:54 Freq: Status: Active Protocol: Activity Type Activity Date Activity User E-sign Co-sign Detail Recorded Client Recorded Date Recorded By Document 12/30/23 11:48 KW Desktop 12/30/23 11:49 KW Document 01/13/24 11:40 RB Desktop 01/13/24 11:41 RB 12/30/23 01/13/24 11:48 11:40 Wound Care Center Nurse 3 #2- CERVICAL INFERIOR WOUND (SURGICAL) -Primary Dressing Applied Aquacel AG 4x4, Aquacel AG 4x4, Mepilex Border Mepilex Border -Aquacel AG 4x4 1 1 -Mepilex Border 1 1 #1- SUPERIOR CERIVICAL SPINE (SURGICAL) -Ulcer Cleansing Rinsed/ Irrigated with Saline -Other Dressing aquacel AG / mepilex border Treatment Response Procedure Tolerated Well Pain Scale: 0-10 Numeric Is Patient Pain Free? Yes Yes - Visit Discharge Discharge Condition Stable Ambulatory Status Wheelchair Wheelchair Transportation CO transport Medication Reconcilliation completed & No No provided to patient/care provider Clinical Summary of Care Provided Yes Yes Additional Wound Wound debrided: Upper back (inferior Cervical) Type of Debridement: Excisional debridement Anesthesia Used: 5% Lidocaine Gel Depth: Down to and including healthy tissue and in the subcutaneous layer Percentage of wound debrided: 100 Instrument Used: 3mm curette Tissue Removed: Slough and devitalized tissue Severity: Fat Layer Exposed Amount of bleeding with debridement: Mild Bleeding Controlled with: Pressure Patient tolerated procedure: Patient tolerated procedure well Assessment/Plan Assessment/Plan (1) Non-healing surgical wound: CODE(S): T81.89XA - Other complications of procedures, not elsewhere classified, initial encounter QUALIFIERS: Encounter type: initial encounter Qualified Code(s): T81.89XA - Other complications of procedures, not elsewhere classified, initial encounter (2) Multiple myeloma: CODE(S): C90.00 - Multiple myeloma not having achieved remission (3) History of radiation therapy: CODE(S): Z92.3 - Personal history of irradiation (4) Paraplegia: CODE(S): G82.20 - Paraplegia, unspecified PLAN: Plan Debridement done as documented above, procedure was well-tolerated. No acute concerns reported at this time. He denies concerns with increased drainage or pain. No significant discharge noted on exam. Currently on antibiotics, extendfor 2 more weeks. Still awaiting follow-up plans with primary surgeon, will faxrecords. Continue Aquacel Ag daily to twice daily depending on drainage. Continue protein supplements with Ariel and other chronic wound care management. His questions were answered and he was advised to let us know if he has any further questions or concerns. Follow-up in 2 weeks or sooner if needed. This note was generated with [employer] dictation software. It may contain incorrectwords, spelling, and punctuation that were not noted in checking the note beforesigning. 01/14/244 <Electronically signed by Te Shah MD> Cosigner Signature (if applicable): CC: ~ Signed [facility] Work Phone: [phone]) 196-252504-04-2024 Progress note Author Te Shah [facility] December 30, 2023 1:01pm Note Date/Time December 30, 2023 12:3 0pm [facility] [address] [place] [id number] Progress Note - Wound Care 12/30/23 1219 MR#: [id number] Acct: [id number] Name: ARMAND BARRON Rep #:[id number] : 1955 68 From: Te chavez MD PCP: Dr. Iraida Balderas MD Status:REG R Location: History of Present Illness Date of Service: 12/30/23 Chief Complaint: Non healing ulcer posterior neck History of Wound: Mr. Barron is a 68-year-old who was referred to this facility due to nonhealing ulcer posterior neck. Had surgery in October due to multiplemyeloma. Surgery was uneventful with most of the surgical site healed but 2 areas which have not healed. Currently resides in an assisted living facility. Wound care - Silver dressings daily. Still follows up closely with oncology and is on monthly chemotherapy regimen and dexamethasone. He also had radiation therapy to the area. Wound culture from 12/09/23 was negative. Prealbumin from 08/13/23 was 19.8. Encouraged nutritional supplementation with protein to help the healing process. Today he denies fever. His appetite is ok. Progress of Wound: Fax from his facility about a week ago reporting increased drainage described aspurulent from the wound sites. Patient denies chills, pain or feeling of unwell. Objective Data Objective Data Vital Signs: Vital Signs Temp Pulse Resp BP O2 Del Method 98.6 F 52 L 18 122/61 H Room Air 12/30/23 10:54 12/30/23 10:54 12/30/23 10:54 12/30/23 10:54 12/30/23 10:54 Oxygen Delivery Method Room Air Weight: 165 lb Body Mass Index (BMI) 27.4 Physical Exam Const alert, oriented x3 and no apparent distress General Appearance: cooperative HEENT normocephalic and head/scalp atraumatic Face and Sinus: normal facial exam Eyes EOMs intact bilaterally General Eye: normal appearance of both eyes Neck full ROM General: normal visual inspection Resp normal respiratory effort Effort and Inspection: able to speak in complete sentences Skin Wounds: wounds noted Neuro oriented x3 and CN's II-XII intact bilaterally Psych mental status grossly normal, thought process normal, cooperative, affect normaland speech normal Debridement Note Debridement Note Wound debrided: Upper back (superior cervical) Type of Debridement: Excisional debridement Anesthesia Used: 5% Lidocaine Gel Depth: Down to and including healthy tissue and in the subcutaneous layer Percentage of wound debrided: 100 Instrument Used: 3mm curette Tissue Removed: Slough and devitalized tissue Severity: Fat Layer Exposed Bleeding Controlled with: Pressure and Compression and gauze Patient tolerated procedure: Patient tolerated procedure well Post-Debridement Measurements and Additional Note: Post-Debridement Measurements/Treatment ELSY - Nurse 1 - General Ulcer Assessment Start: 12/30/23 10:54 Freq: Status: Active Protocol: WC.LOWEXT Activity Type Activity Date Activity User E-sign Co-sign Detail Recorded Client Recorded Date Recorded By Document 12/30/23 10:54 Desktop 12/30/23 11:07 12/30/23 10:54 - Today's Visit Information Type of service Follow-up Visit (Physician/LOCK TENDER ) Arrival Mode Wheelchair Transfer Assistance None Patient Identification Verified (Name & Yes ) Patient Requires Transmission-Based No Precautions Height and Weight Body Mass Index (BMI) 27.4 BMI Classification Overweight Vital Signs Temperature (97.8 F-99.1 F) 98.6 F Temperature Source Temporal Pulse Rate (60-100) 52 L Pulse Location Monitor Respiratory Rate (12-18) 18 Respiratory rate source Observation Oxygen Delivery Method Room Air Blood Pressure (90/60-120/80) 122/61 H Blood Pressure Mean (mm Hg) 81 Source Monitor Position Sitting Blood Pressure Location Right Arm History Since Last Visit- (Skip if this is Patient's initial visit) Have you changed medications since your No last visit? Any new allergies or adverse reactions No Had a fall/change in ADL's that may No increase risk of falls Signs or symptoms of abuse and/or No neglect since last visit Have you been in the hospital since your No last visit? Has dressing in place as prescribed Yes Has compression in place as prescribed N/A Has offloadiing in place as prescribed N/A Experienced any changes in pain level or No management Pain Scale: 0-10 Numeric Is Patient Pain Free? No thoracis/cervical -Intensity 2 -Duration (hours) Chronic -Pain Behavior No Change in Behavior -Alleviating Factors/Interventions Medication,Will continue to monitor - Nurse 1 - General Ulcer Measurement Start: 12/30/23 10:54 Freq: Status: Active Protocol: Activity Type Activity Date Activity User E-sign Co-sign Detail Recorded Client Recorded Date Recorded By Document 12/30/23 10:54 Desktop 12/30/23 11:07 12/30/23 10:54 Wound Center Nurse 1 #2- CERVICAL INFERIOR WOUND (SURGICAL) -Current Size (cm) - Depth 1 -Photo Taken No -Epithelialization Large 67-100% -Tunneling No -Undermining/Tunneling No -Circular Undermining No -Exudate Amt Medium -Exudate Type Purulent -Wound Margin Distinct, Outline Attached -Texture (Ritika-wound Skin Appearance) Assessed -Moisture (Ritika-wound Skin Appearance) Assessed -Color (Ritika-wound Skin Appearance) Assessed -Temperature (Ritika-wound Skin No Abnormality Appearance) (Pt Warm) -Tenderness on Palpation (Ritika-wound Yes Skin Appearance) -Ulcer Cleansing Rinsed/ Irrigated with Saline -Foul Odor after Cleansing No -Anesthetic Used 5% Lidocaine Gel #1- SUPERIOR CERIVICAL SPINE (SURGICAL) -Current Size (cm) - Length 0.5 -Current Size (cm) - Width 0.5 -Current Size (cm) - Depth 1 -Total Square Cm 0.25 -Photo Taken No -Tunneling Yes -Tunneling Position (O'clock) 2 -Tunneling Distance (cm) 3 -Undermining/Tunneling No -Circular Undermining No -Exudate Amt None Present -Exudate Type Purulent -Wound Margin Distinct, Outline Attached -Texture (Ritika-wound Skin Appearance) Assessed -Moisture (Ritika-wound Skin Appearance) Assessed -Color (Ritika-wound Skin Appearance) Assessed -Temperature (Ritika-wound Skin No Abnormality Appearance) (Pt Warm) -Ulcer Cleansing Rinsed/ Irrigated with Saline -Foul Odor after Cleansing No -Anesthetic Used 5% Lidocaine Gel WC - Nurse 2 - General Ulcer CM Notes Start: 12/30/23 10:54 Freq: Status: Active Protocol: Activity Type Activity Date Activity User E-sign Co-sign Detail Recorded Client Recorded Date Recorded By Document 12/30/23 11:12 GM Desktop 12/30/23 11:30 GM 12/30/23 11:12 Wound Center Nurse 2 #2- CERVICAL INFERIOR WOUND (SURGICAL) -Time 11:13 -Correct Patient Yes -Correct Side, Site, Position Yes -Correct Procedure Yes -Procedure Performed Yes -Type of Procedure Debridement -Clinical Debridement Subcutaneous -Tissue Removed Subcutaneous -Post Debridement (cm) - Length 0.6 -Post Debridement (cm) - Width 0.6 -Post Debridement (cm) - Depth 2.8 -Total Square (Post) (cm) 0.36 -Area of Debridement (cm) - Length 0.6 -Area of Debridement (cm) - Width 0.6 -Total Square (Area) (cm) 0.36 -Tunneling No -Undermining/Tunneling No -Circular Undermining No -Wound/Ulcer Outcome Not Healed -Ulcer Cleansing Rinsed/ Irrigated with Saline -Foul Odor after Cleansing No -Bioengineered Tissue No -Bleeding Controlled with Pressure -Treatment Response Procedure Tolerated Well -Debridement - Subq, 1st 20sq cm Yes #1- SUPERIOR CERIVICAL SPINE (SURGICAL) -Time 11:13 -Correct Patient Yes -Correct Side, Site, Position Yes -Correct Procedure Yes -Procedure Performed Yes -Type of Procedure Debridement -Clinical Debridement Subcutaneous -Tissue Removed Subcutaneous -Post Debridement (cm) - Length 0.5 -Post Debridement (cm) - Width 0.3 -Post Debridement (cm) - Depth 2.5 -Total Square (Post) (cm) 0.15 -Area of Debridement (cm) - Length 0.5 -Area of Debridement (cm) - Width 0.3 -Total Square (Area) (cm) 0.15 -Tunneling No -Undermining/Tunneling No -Circular Undermining No -Wound/Ulcer Outcome Not Healed -Ulcer Cleansing Rinsed/ Irrigated with Saline -Foul Odor after Cleansing No -Bioengineered Tissue No -Bleeding Controlled with Pressure -Treatment Response Procedure Tolerated Well -Debridement - Subq, 1st 20sq cm No Pain Scale: 0-10 Numeric Is Patient Pain Free? Yes - Nurse 3 - General Ulcer D/C NN Start: 12/30/23 10:54 Freq: Status: Active Protocol: Activity Type Activity Date Activity User E-sign Co-sign Detail Recorded Client Recorded Date Recorded By Document 12/30/23 11:48 KW Desktop 12/30/23 11:49 KW 12/30/23 11:48 Wound Care Center Nurse 3 #2- CERVICAL INFERIOR WOUND (SURGICAL) -Primary Dressing Applied Aquacel AG 4x4, Mepilex Border -Aquacel AG 4x4 1 -Mepilex Border 1 #1- SUPERIOR CERIVICAL SPINE (SURGICAL) -Ulcer Cleansing Rinsed/ Irrigated with Saline Pain Scale: 0-10 Numeric Is Patient Pain Free? Yes WC - Visit Discharge Ambulatory Status Wheelchair Medication Reconcilliation completed & No provided to patient/care provider Clinical Summary of Care Provided Yes Additional Wound Wound debrided: Upper back (inferior Cervical) Type of Debridement: Excisional debridement Anesthesia Used: 5% Lidocaine Gel Depth: Down to and including healthy tissue and in the subcutaneous layer Percentage of wound debrided: 100 Instrument Used: 3mm curette Tissue Removed: Slough and devitalized tissue Severity: Fat Layer Exposed Amount of bleeding with debridement: Mild Bleeding Controlled with: Pressure Patient tolerated procedure: Patient tolerated procedure well Assessment/Plan Assessment/Plan (1) Non-healing surgical wound: CODE(S): T81.89XA - Other complications of procedures, not elsewhere classified, initial encounter QUALIFIERS: Encounter type: initial encounter Qualified Code(s): T81.89XA - Other complications of procedures, not elsewhere classified, initial encounter (2) Multiple myeloma: CODE(S): C90.00 - Multiple myeloma not having achieved remission (3) History of radiation therapy: CODE(S): Z92.3 - Personal history of irradiation (4) Paraplegia: CODE(S): G82.20 - Paraplegia, unspecified PLAN: Plan Debridement done as documented above, procedure was well-tolerated. As above, report for increased drainage from facility. Last seen here 2 weeks ago and at that time, no documentation of purulent drainage. Documentation reviewed, concern for possible hardware infection and residual cancer. Review of oncologynote however states that he is currently in very good partial remission with M protein not detected. Had imaging (x-ray) months ago which did not show any concern for osteomyelitis however given chronicity and exposure there is the possibility for osteomyelitis. This again was discussed with the patient and hewas advised to get in touch with his primary surgeon. I believe he would benefit from higher level imaging/reevaluation. Due to recommendation for surgical management at plastic surgery evaluation, will hold off HBO at this time until reevaluation by primary surgeon. Again, patient voiced understanding. Cultures taken due to concern for increased drainage, will review when available. For now, Aquacel Ag daily to twice daily depending on drainage. Continue protein supplements with Ariel and other chronic wound care management. His questions were answered and he was advised to let us know if hehas any further questions or concerns. Follow-up in 2 weeks or sooner if needed. This note was generated with [employer] dictation software. It may contain incorrectwords, spelling, and punctuation that were not noted in checking the note beforesigning. 12/30/23 1301 <Electronically signed by Te Shah MD> Cosigner Signature (if applicable): CC: ~ Signed [facility] Work Phone: [phone]) 173-497903-23-2024 Progress note Author Kofi Barboza [facility] December 17, 2023 11:52pm Note Date/Time December 15, 2023 5:[address] [facility] [address] [place] [address] Progress Note - Wound Care 12/15/23 1716 MR#: [id number] Acct: [id number] Name: ARMAND BARRON Rep #:[id number] : 1955 68 From: Kofi Molina PCP: Dr. Iraida Balderas MD Status:REG RCR Location: History of Present Illness Date of Service: 12/15/23 Chief Complaint: Non healing ulcer posterior neck History of Wound: Mr. Barron is a 68-year-old who was referred to this facility due to nonhealing ulcer posterior neck. Had surgery in October due to multiplemyeloma. Surgery was uneventful with most of the surgical site healed but 2 areas which have not healed. Currently resides in an assisted living facility. Wound care - Silver dressings daily. Still follows up closely with oncology and is on monthly chemotherapy regimen and dexamethasone. He also had radiation therapy to the area. Wound culture from 12/09/23 was negative. Prealbumin from 08/13/23 was 19.8. Encouraged nutritional supplementation with protein to help the healing process. Today he denies fever. His appetite is ok. Progress of Wound: Minimal improvement. The ulcers track down to the bone. Objective Data Objective Data Vital Signs: Vital Signs Temp Pulse Resp BP 98.1 F 54 L 18 99/52 L 12/15/23 13:22 12/15/23 13:22 12/15/23 13:22 12/15/23 13:22 Weight: 165 lb Body Mass Index (BMI) 27.4 Prealbumin from 08/13/23 was 19.8. Encourage nutritional supplementation with protein to help the healing process. Lab / Micro Data Attestation: I reviewed the patient's lab results. Micro: Microbiology 12/09/23 13:50 Wound Abcess - Cervical Gram Stain - Final 12/09/23 13:50 Wound Abcess - Cervical Wound Culture - Final No growth aerobically. 12/09/23 13:50 Wound Abcess - Cervical Anaerobic Culture - Final No anaerobic bacteria isolated. Charges/Coding Procedures Integumentary 111xxx-113xx: 36174 Marley musc/fascia 20 sq cm/< (ICD-10 - L98.495, T66.xxxS, L59.8, C90.00, G82.20, Z86.14 ) Debridement Note Debridement Note Wound debrided: #1 Posterior neck, superior Laterality: Not Applicable Wound Grade/Stage: 3. Type of Debridement: Excisional debridement Anesthesia Used: 5% Lidocaine Gel Depth: Down to and including healthy tissue, in the subcutaneous layer, to muscle and to bone (bone is palpable but not debrided) Percentage of wound debrided: 100 Instrument Used: 3mm curette Tissue Removed: Subcutaneous tissue, muscle, senescent cells, increased bioburden Severity: Fat Layer Exposed (muscle is exposed. Bone is palpable but not debrided.) Amount of bleeding with debridement: Mild Bleeding Controlled with: Pressure and Compression and gauze Patient tolerated procedure: Patient tolerated procedure well Post-Debridement Measurements and Additional Note: Post-Debridement Measurements/Treatment - Nurse 1 - General Ulcer Assessment Start: 12/09/23 10:34 Freq: Status: Active Protocol: RAUL Activity Type Activity Date Activity User E-sign Co-sign Detail Recorded Client Recorded Date Recorded By Document 12/09/23 10:34 RB Desktop 12/09/23 10:36 RB Document 12/15/23 13:22 RB Desktop 12/15/23 13:24 RB 12/09/23 12/15/23 10:34 13:22 - Today's Visit Information Type of service Follow-up Visit Follow-up Visit (Physician/LOCK TENDER (Physician/LOCK TENDER ) ) Arrival Mode Ambulatory Wheelchair Transfer Assistance None None Patient Identification Verified (Name & Yes Yes ) Patient Requires Transmission-Based No No Precautions Height and Weight Body Mass Index (BMI) 27.4 27.4 BMI Classification Overweight Overweight Vital Signs Temperature (97.8 F-99.1 F) 97.4 F L 98.1 F Temperature Source Temporal Temporal Pulse Rate (60-100) 52 L 54 L Pulse Location Monitor Monitor Respiratory Rate (12-18) 18 18 Respiratory rate source Observation Observation Blood Pressure (90/60-120/80) 97/38 L 99/52 L Blood Pressure Mean (mm Hg) 57 67 Source Monitor Monitor Position Semi-Fowlers Sitting Blood Pressure Location Left Arm Right Arm History Since Last Visit- (Skip if this is Patient's initial visit) Have you changed medications since your No No last visit? Any new allergies or adverse reactions No No Had a fall/change in ADL's that may No No increase risk of falls Signs or symptoms of abuse and/or No No neglect since last visit Have you been in the hospital since your No No last visit? Has dressing in place as prescribed Yes Yes Has compression in place as prescribed No No Has offloadiing in place as prescribed No No Experienced any changes in pain level or No No management Pain Scale: 0-10 Numeric Is Patient Pain Free? Yes Yes 12/15/23 14:44 Wound Center by Aruna Coffman HBO video shown to patient Initialized on 12/15/23 14:44 - END OF NOTE WC - Nurse 1 - General Ulcer Measurement Start: 12/09/23 10:34 Freq: Status: Active Protocol: Activity Type Activity Date Activity User E-sign Co-sign Detail Recorded Client Recorded Date Recorded By Document 12/09/23 10:34 RB Desktop 12/09/23 10:36 RB Document 12/15/23 13:22 RB Desktop 12/15/23 13:24 RB 12/09/23 12/15/23 10:34 13:22 Wound Center Nurse 1 #2- CERVICAL INFERIOR WOUND (SURGICAL) -Combined with other wound No No -Current Size (cm) - Length 0.1 0.5 -Current Size (cm) - Width 0.1 0.7 -Current Size (cm) - Depth 0.1 2.7 -Total Square Cm 0.01 0.35 -Photo Taken Yes -Tunneling No No -Undermining/Tunneling No No -Circular Undermining No No -Exudate Amt Medium Medium -Exudate Type Serosanguineous Serosanguineous -Wound Margin Distinct, Thickened & Outline Rolled Under Attached -Granulation Amt Medium (34-66%) Medium (34-66%) -Granulation Quality [place]ihue [place]ihue -Slough/Fibrin Yes Yes -Necrosis Amt Medium (34-66%) Small (1-33%) -Necrotic Tissue Type Adherent Slough Adherent Slough -Structure Exposed N/A N/A -Texture (Ritika-wound Skin Appearance) Assessed, Assessed, Scarring Scarring -Moisture (Ritika-wound Skin Appearance) Assessed Assessed -Color (Ritika-wound Skin Appearance) Assessed Assessed -Temperature (Ritika-wound Skin No Abnormality No Abnormality Appearance) (Pt Warm) (Pt Warm) -Tenderness on Palpation (Ritika-wound No No Skin Appearance) -Ulcer Cleansing Wound Cleanser Wound Cleanser -Foul Odor after Cleansing No No -Anesthetic Used 5% Lidocaine 5% Lidocaine Gel Gel #1- SUPERIOR CERIVICAL SPINE (SURGICAL) -Combined with other wound No No -Current Size (cm) - Length 0.1 1 -Current Size (cm) - Width 0.1 0.7 -Current Size (cm) - Depth 0.1 1.2 -Total Square Cm 0.01 0.7 -Photo Taken Yes -Tunneling No No -Undermining/Tunneling No No -Circular Undermining No No -Exudate Amt Medium Medium -Exudate Type Serosanguineous Serosanguineous -Wound Margin Distinct, Thickened & Outline Rolled Under Attached -Granulation Amt Medium (34-66%) Medium (34-66%) -Granulation Quality [place] -Slough/Fibrin Yes -Necrosis Amt Medium (34-66%) Medium (34-66%) -Necrotic Tissue Type Adherent Slough Adherent Slough -Structure Exposed N/A N/A -Texture (Ritika-wound Skin Appearance) Assessed, Assessed, Scarring Scarring -Moisture (Ritika-wound Skin Appearance) Assessed Assessed -Color (Ritika-wound Skin Appearance) Assessed Assessed -Temperature (Ritika-wound Skin No Abnormality No Abnormality Appearance) (Pt Warm) (Pt Warm) -Tenderness on Palpation (Ritika-wound No No Skin Appearance) -Ulcer Cleansing Wound Cleanser Wound Cleanser -Foul Odor after Cleansing No No -Anesthetic Used 5% Lidocaine 5% Lidocaine Gel Gel WC - Nurse 2 - General Ulcer CM Notes Start: 12/09/23 10:34 Freq: Status: Active Protocol: Activity Type Activity Date Activity User E-sign Co-sign Detail Recorded Client Recorded Date Recorded By Document 12/09/23 11:24 [id number] 12/09/23 11:28 GM Document 12/15/23 14:04 MW Desktop 12/15/23 14:16 MW 12/09/23 12/15/23 11:24 14:04 Wound Center Nurse 2 #2- CERVICAL INFERIOR WOUND (SURGICAL) -Time 10:45 14:05 -Correct Patient Yes Yes -Correct Side, Site, Position Yes Yes -Correct Procedure Yes Yes -Procedure Performed Yes Yes -Type of Procedure Debridement Debridement -Clinical Debridement Subcutaneous Muscle / Fascia -Tissue Removed Subcutaneous Muscle,Fascia -Post Debridement (cm) - Length 0.3 1.0 -Post Debridement (cm) - Width 0.6 0.8 -Post Debridement (cm) - Depth 2.6 2.7 -Total Square (Post) (cm) 0.18 0.80 -Area of Debridement (cm) - Length 0.3 1.0 -Area of Debridement (cm) - Width 0.6 0.8 -Total Square (Area) (cm) 0.18 0.80 -Tunneling No No -Undermining/Tunneling No No -Circular Undermining No No -Wound/Ulcer Outcome Not Healed Not Healed -Ulcer Cleansing Rinsed/ Rinsed/ Irrigated with Irrigated with Saline Saline -Foul Odor after Cleansing No No -Bioengineered Tissue No No -Bleeding Controlled with Pressure Pressure -Treatment Response Procedure Procedure Tolerated Well Tolerated Well -Offloading No -Debridement - Subq, 1st 20sq cm Yes -Debridement - Muscle / Fascia, 1st Yes 20sq cm #1- SUPERIOR CERIVICAL SPINE (SURGICAL) -Time 10:45 14:10 -Correct Patient Yes Yes -Correct Side, Site, Position Yes Yes -Correct Procedure Yes Yes -Procedure Performed Yes Yes -Type of Procedure Debridement Debridement -Clinical Debridement Subcutaneous Muscle / Fascia -Tissue Removed Subcutaneous Muscle,Fascia -Post Debridement (cm) - Length 1 0.6 -Post Debridement (cm) - Width 0.5 0.6 -Post Debridement (cm) - Depth 2.2 3.0 -Total Square (Post) (cm) 0.5 0.36 -Area of Debridement (cm) - Length 1 0.6 -Area of Debridement (cm) - Width 0.5 0.6 -Total Square (Area) (cm) 0.5 0.36 -Tunneling No No -Undermining/Tunneling No No -Circular Undermining No No -Wound/Ulcer Outcome Not Healed Not Healed -Ulcer Cleansing Rinsed/ Rinsed/ Irrigated with Irrigated with Saline Saline -Foul Odor after Cleansing No No -Bioengineered Tissue No No -Bleeding Controlled with Pressure Pressure -Treatment Response Procedure Procedure Tolerated Well Tolerated Well -Offloading No -Debridement - Subq, 1st 20sq cm No -Debridement - Muscle / Fascia, 1st No 20sq cm Pain Scale: 0-10 Numeric Is Patient Pain Free? Yes Yes WC - Nurse 3 - General Ulcer D/C NN Start: 12/09/23 10:34 Freq: Status: Active Protocol: Activity Type Activity Date Activity User E-sign Co-sign Detail Recorded Client Recorded Date Recorded By Document 12/09/23 11:11 RB Desktop 12/09/23 11:12 RB Document 12/15/23 14:19 MW Desktop 12/15/23 14:22 MW 12/09/23 12/15/23 11:11 14:19 Wound Care Center Nurse 3 #2- CERVICAL INFERIOR WOUND (SURGICAL) -Ulcer Cleansing Wound Cleanser Not Cleansed -Foul Odor after Cleansing No -Negative Pressure Wound Therapy N/A -Primary Dressing Applied Aquacel Extra, Aquacel Extra, Mepilex Border Mepilex Border -Aquacel Extra 1 1 -Mepilex Border 1 1 #1- SUPERIOR CERIVICAL SPINE (SURGICAL) -Ulcer Cleansing Wound Cleanser Rinsed/ Irrigated with Saline -Foul Odor after Cleansing No -Negative Pressure Wound Therapy N/A -Primary Dressing Applied Aquacel Extra, Mepilex Border -Other Dressing aquacel extra -Aquacel Extra 1 -Mepilex Border 1 Treatment Response Procedure Procedure Tolerated Well Tolerated Well Pain Scale: 0-10 Numeric Is Patient Pain Free? Yes Yes Teaching: Wound Center Dressing changes -Person Taught Patient -Teaching Method Discussion, Demonstration -Response to teaching Verbalize understanding WC - Visit Discharge Discharge Condition Stable Stable Ambulatory Status Wheelchair Wheelchair Transportation [place] Accompanied by SELF Medication Reconcilliation completed & No Yes provided to patient/care provider Clinical Summary of Care Provided Yes No Additional Wound Wound debrided: #2 Posterior neck, inferior Laterality: Not Applicable Wound Grade/Stage: 3 Type of Debridement: Excisional debridement Anesthesia Used: 5% Lidocaine Gel Depth: Down to and including healthy tissue, in the subcutaneous layer, to muscle and to bone (bone is palpable but not debrided) Percentage of wound debrided: 100 Instrument Used: 3mm curette Tissue Removed: Subcutaneous tissue, muscle, senescent cells, increased bioburden Severity: Fat Layer Exposed (muscle is exposed. 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 - 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; Y84.2 - Radiological procedure and radiotherapy as the cause of abnormal reaction of the patient, or of later complication, withoutmention of misadventure at the time of the procedure (4) Multiple myeloma: CODE(S): C90.00 - Multiple myeloma not having achieved remission (5) Paraplegia: CODE(S): G82.20 - Paraplegia, unspecified (6) Personal history of Methicillin resistant Staphylococcus aureus infection: CODE(S): Z86.14 - Personal history of Methicillin resistant Staphylococcusaureus infection PLAN: Plan Continue Silver dressing changes to the posterior neck ulcers. Wound culture from 12/09/23 was negative. He did have a culture from 08/26/23 that was positive for MRSA. It was treated with Doxycycline. Anticipate increased metabolic demands from the ulcers. Prealbumin from 08/13/23 was 19.8. Encourage nutritional supplementation with protein to help the healing process. He has bee taking Ariel twice daily. The ulcer tracks down to the bone. I suspect the foreign body hardware may be involved. Osteomyelitis is also a concern. Patient is getting chemotherapy indicating the cancer is still active. He is not a candidate for HBO at this time until the cancer is stable and in remission, and chemotherapy is not needed. Active cancer, history of radiation damage, presence of foreign body (hardware from his neck surgery), and probable presence of osteomyelitis are reasons the ulcer will not heal. If the patient is interested in the ulcer healing, then surgical intervention would be necessary. Initial excision of the radiated tissue would be done and sent to Pathology for analysis to rule out carcinoma. Exposed hardware may needto be removed if the neck is stable enough for that. If not a temporary halo may be needed to stabilize the neck until the wound has healed. Any positive cultures would be treated with antibiotics. Wound closure would be with a nonradiated muscle flap, (i.e., trapezius muscle), with skin grafting. Due to the complexity of the patient's medical situation, this surgical plan would needto be done at a tertiary center. His initial neck surgery was done at [facility]. Patient will think about surgery. Follow-up 2 weeks. 12/17/23 1072 <Electronically signed by Kofi Barboza MD> Cosigner Signature (if applicable): CC: ~ Signed [facility] Work Phone: [phone] Progress note Author Te Shah [facility] December 09, 2023 12:09pm Note Date/Time December 09, 2023 12: 09pm [facility] [address] [place] [address] Progress Note - Wound Care 12/09/23 1152 MR#: [id number] Acct: [id number] Name: ARMAND BARRON Rep #:[id number] : 1955 68 From: Te chavez MD PCP: Dr. Iraida Balderas MD Status:REG RCR Location: History of Present Illness Date of Service: 12/09/23 Chief Complaint: Non healing surgical wound History of Wound: Mr. Barron is a 68-year-old who was referred to this facility due to nonhealing surgical wound. Had surgery in October due to multiple myeloma. Surgery was uneventful with most of the surgical site healed but 2 areas which have not healed. He states that he has had wound dressings down to the area including a wound VAC. Not particularly sure what type of dressings hehas had. He is not sure how much drainage he is getting from the area either. Currently resides in an assisted living facility. Still follows up closely withoncology and is on monthly chemotherapy regimen and dexamethasone. Had also hadradiation therapy to the area. He feels well otherwise. States that he eats good. Progress of Wound: Call from his facility on 12/02 with concern for purulent drainage. Prescriptionfor Doxycycline was sent in based on prior culture and sensitivity. He is not sure if he actually started taking it or not but he believes he was told about it... No purulent drainage appreciated on exam. Slight worsening to depth of both however noted. He feels well and denies any acute concerns at this time. Objective Data Objective Data Vital Signs: Vital Signs Temp Pulse Resp BP 97.4 F L 52 L 18 97/38 L 12/09/23 10:34 12/09/23 10:34 12/09/23 10:34 12/09/23 10:34 Weight: 165 lb Body Mass Index (BMI) 27.4 Charges/Coding Procedures Integumentary 111xxx-113xx: 97598 Marley subq tissue 20 sq cm/< Physical Exam Const alert, oriented x3 and no apparent distress General Appearance: cooperative HEENT normocephalic and head/scalp atraumatic Face and Sinus: normal facial exam Eyes EOMs intact bilaterally General Eye: normal appearance of both eyes Neck full ROM General: normal visual inspection Resp normal respiratory effort Effort and Inspection: able to speak in complete sentences Skin Wounds: wounds noted Neuro oriented x3 and CN's II-XII intact bilaterally Psych mental status grossly normal, thought process normal, cooperative, affect normaland speech normal Debridement Note Debridement Note Wound debrided: Upper back (superior cervical) Type of Debridement: Excisional debridement Anesthesia Used: 5% Lidocaine Gel Depth: Down to and including healthy tissue and in the subcutaneous layer Percentage of wound debrided: 100 Instrument Used: 3mm curette Tissue Removed: Slough and devitalized tissue Severity: Fat Layer Exposed Bleeding Controlled with: Pressure and Compression and gauze Patient tolerated procedure: Patient tolerated procedure well Post-Debridement Measurements and Additional Note: Post-Debridement Measurements/Treatment - Nurse 1 - General Ulcer Assessment Start: 12/09/23 10:34 Freq: Status: Active Protocol: RAUL Activity Type Activity Date Activity User E-sign Co-sign Detail Recorded Client Recorded Date Recorded By Document 12/09/23 10:34 Desktop 12/09/23 10:36 RB 12/09/23 10:34 - Today's Visit Information Type of service Follow-up Visit (Physician/LOCK TENDER ) Arrival Mode Ambulatory Transfer Assistance None Patient Identification Verified (Name & Yes ) Patient Requires Transmission-Based No Precautions Height and Weight Body Mass Index (BMI) 27.4 BMI Classification Overweight Vital Signs Temperature (97.8 F-99.1 F) 97.4 F L Temperature Source Temporal Pulse Rate (60-100) 52 L Pulse Location Monitor Respiratory Rate (12-18) 18 Respiratory rate source Observation Blood Pressure (90/60-120/80) 97/38 L Blood Pressure Mean (mm Hg) 57 Source Monitor Position Semi-Fowlers Blood Pressure Location Left Arm History Since Last Visit- (Skip if this is Patient's initial visit) Have you changed medications since your No last visit? Any new allergies or adverse reactions No Had a fall/change in ADL's that may No increase risk of falls Signs or symptoms of abuse and/or No neglect since last visit Have you been in the hospital since your No last visit? Has dressing in place as prescribed Yes Has compression in place as prescribed No Has offloadiing in place as prescribed No Experienced any changes in pain level or No management Pain Scale: 0-10 Numeric Is Patient Pain Free? Yes WC - Nurse 1 - General Ulcer Measurement Start: 12/09/23 10:34 Freq: Status: Active Protocol: Activity Type Activity Date Activity User E-sign Co-sign Detail Recorded Client Recorded Date Recorded By Document 12/09/23 10:34 Desktop 12/09/23 10:36 RB 12/09/23 10:34 Wound Center Nurse 1 #2- CERVICAL INFERIOR WOUND (SURGICAL) -Combined with other wound No -Current Size (cm) - Length 0.1 -Current Size (cm) - Width 0.1 -Current Size (cm) - Depth 0.1 -Total Square Cm 0.01 -Tunneling No -Undermining/Tunneling No -Circular Undermining No -Exudate Amt Medium -Exudate Type Serosanguineous -Wound Margin Distinct, Outline Attached -Granulation Amt Medium (34-66%) -Granulation Quality [place]ue -Slough/Fibrin Yes -Necrosis Amt Medium (34-66%) -Necrotic Tissue Type Adherent Slough -Structure Exposed N/A -Texture (Ritika-wound Skin Appearance) Assessed, Scarring -Moisture (Ritika-wound Skin Appearance) Assessed -Color (Ritika-wound Skin Appearance) Assessed -Temperature (Ritika-wound Skin No Abnormality Appearance) (Pt Warm) -Tenderness on Palpation (Ritika-wound No Skin Appearance) -Ulcer Cleansing Wound Cleanser -Foul Odor after Cleansing No -Anesthetic Used 5% Lidocaine Gel #1- SUPERIOR CERIVICAL SPINE (SURGICAL) -Combined with other wound No -Current Size (cm) - Length 0.1 -Current Size (cm) - Width 0.1 -Current Size (cm) - Depth 0.1 -Total Square Cm 0.01 -Tunneling No -Undermining/Tunneling No -Circular Undermining No -Exudate Amt Medium -Exudate Type Serosanguineous -Wound Margin Distinct, Outline Attached -Granulation Amt Medium (34-66%) -Necrosis Amt Medium (34-66%) -Necrotic Tissue Type Adherent Slough -Structure Exposed N/A -Texture (Ritika-wound Skin Appearance) Assessed, Scarring -Moisture (Ritika-wound Skin Appearance) Assessed -Color (Ritika-wound Skin Appearance) Assessed -Temperature (Ritika-wound Skin No Abnormality Appearance) (Pt Warm) -Tenderness on Palpation (Ritika-wound No Skin Appearance) -Ulcer Cleansing Wound Cleanser -Foul Odor after Cleansing No -Anesthetic Used 5% Lidocaine Gel WC - Nurse 2 - General Ulcer CM Notes Start: 12/09/23 10:34 Freq: Status: Active Protocol: Activity Type Activity Date Activity User E-sign Co-sign Detail Recorded Client Recorded Date Recorded By Document 12/09/23 11:24 [id number] 12/09/23 11:28 12/09/23 11:24 Wound Center Nurse 2 #2- CERVICAL INFERIOR WOUND (SURGICAL) -Time 10:45 -Correct Patient Yes -Correct Side, Site, Position Yes -Correct Procedure Yes -Procedure Performed Yes -Type of Procedure Debridement -Clinical Debridement Subcutaneous -Tissue Removed Subcutaneous -Post Debridement (cm) - Length 0.3 -Post Debridement (cm) - Width 0.6 -Post Debridement (cm) - Depth 2.6 -Total Square (Post) (cm) 0.18 -Area of Debridement (cm) - Length 0.3 -Area of Debridement (cm) - Width 0.6 -Total Square (Area) (cm) 0.18 -Tunneling No -Undermining/Tunneling No -Circular Undermining No -Wound/Ulcer Outcome Not Healed -Ulcer Cleansing Rinsed/ Irrigated with Saline -Foul Odor after Cleansing No -Bioengineered Tissue No -Bleeding Controlled with Pressure -Treatment Response Procedure Tolerated Well -Debridement - Subq, 1st 20sq cm Yes #1- SUPERIOR CERIVICAL SPINE (SURGICAL) -Time 10:45 -Correct Patient Yes -Correct Side, Site, Position Yes -Correct Procedure Yes -Procedure Performed Yes -Type of Procedure Debridement -Clinical Debridement Subcutaneous -Tissue Removed Subcutaneous -Post Debridement (cm) - Length 1 -Post Debridement (cm) - Width 0.5 -Post Debridement (cm) - Depth 2.2 -Total Square (Post) (cm) 0.5 -Area of Debridement (cm) - Length 1 -Area of Debridement (cm) - Width 0.5 -Total Square (Area) (cm) 0.5 -Tunneling No -Undermining/Tunneling No -Circular Undermining No -Wound/Ulcer Outcome Not Healed -Ulcer Cleansing Rinsed/ Irrigated with Saline -Foul Odor after Cleansing No -Bioengineered Tissue No -Bleeding Controlled with Pressure -Treatment Response Procedure Tolerated Well -Debridement - Subq, 1st 20sq cm No Pain Scale: 0-10 Numeric Is Patient Pain Free? Yes - Nurse 3 - General Ulcer D/C NN Start: 12/09/23 10:34 Freq: Status: Active Protocol: Activity Type Activity Date Activity User E-sign Co-sign Detail Recorded Client Recorded Date Recorded By Document 12/09/23 11:11 Desktop 12/09/23 11:12 12/09/23 11:11 Wound Care Center Nurse 3 #2- CERVICAL INFERIOR WOUND (SURGICAL) -Ulcer Cleansing Wound Cleanser -Primary Dressing Applied Aquacel Extra, Mepilex Border -Aquacel Extra 1 -Mepilex Border 1 #1- SUPERIOR CERIVICAL SPINE (SURGICAL) -Ulcer Cleansing Wound Cleanser -Other Dressing aquacel extra Treatment Response Procedure Tolerated Well Pain Scale: 0-10 Numeric Is Patient Pain Free? Yes - Visit Discharge Discharge Condition Stable Ambulatory Status Wheelchair Medication Reconcilliation completed & No provided to patient/care provider Clinical Summary of Care Provided Yes Additional Wound Wound debrided: Upper back (inferior Cervical) Type of Debridement: Excisional debridement Anesthesia Used: 5% Lidocaine Gel Depth: Down to and including healthy tissue and in the subcutaneous layer Percentage of wound debrided: 100 Instrument Used: 3mm curette Tissue Removed: Slough and devitalized tissue Severity: Fat Layer Exposed Amount of bleeding with debridement: Mild Bleeding Controlled with: Pressure Patient tolerated procedure: Patient tolerated procedure well Assessment/Plan Assessment/Plan (1) Non-healing surgical wound: CODE(S): T81.89XA - Other complications of procedures, not elsewhere classified, initial encounter QUALIFIERS: Encounter type: initial encounter Qualified Code(s): T81.89XA - Other complications of procedures, not elsewhere classified, initial encounter (2) Multiple myeloma: CODE(S): C90.00 - Multiple myeloma not having achieved remission (3) History of radiation therapy: CODE(S): Z92.3 - Personal history of irradiation (4) Paraplegia: CODE(S): G82.20 - Paraplegia, unspecified PLAN: Plan Debridement done as documented above, procedure was well-tolerated. As above, no significant drainage or purulence noted on exam. There is however an increase in depth. Cultures taken, will review. Scheduled for HBO consult nextweek, we now have availability at this facility. Continue Aquacel extra, changedaily to twice daily depending on drainage. Continue Ariel twice daily. Vitamin C, D and zinc also recommended, he voiced understanding. His questions were answered and he was advised to let us know if he has any further questions or concerns. HBO consult and nurse visit next week. Follow-up with me in 3 weeks. This note was generated with [employer] dictation software. It may contain incorrectwords, spelling, and punctuation that were not noted in checking the note beforesigning. 12/09/23 4125 <Electronically signed by Te Shah MD> Cosigner Signature (if applicable): CC: ~ Signed [facility] Work Phone: 1(547) 763-245402-29-2024 Progress note Author Te Shah [facility] November 25, 2023 11:39am Note Date/Time November 25, 2023 11:34am [facility] [address] [place] [id number] Progress Note - Wound Care 11/25/23 1104 MR#: [id number] Acct: [id number] Name: ARMAND BARRON LEAH Rep #:[id number] : 1955 68 From: Te chavez MD PCP: Dr. Iraida Balderas MD Status:REG RCR Location: History of Present Illness Date of Service: 11/25/23 Chief Complaint: Non healing surgical wound History of Wound: Mr. Barron is a 68-year-old who was referred to this facility due to nonhealing surgical wound. Had surgery in October due to multiple myeloma. Surgery was uneventful with most of the surgical site healed but 2 areas which have not healed. He states that he has had wound dressings down to the area including a wound VAC. Not particularly sure what type of dressings hehas had. He is not sure how much drainage he is getting from the area either. Currently resides in an assisted living facility. Still follows up closely withoncology and is on monthly chemotherapy regimen and dexamethasone. Had also hadradiation therapy to the area. He feels well otherwise. States that he eats good. Progress of Wound: No new concerns at this time. Overall, stable wounds. As previously documented, patient is agreeable to HBO however, we do not have availability at this facility for couple months. Objective Data Objective Data Vital Signs: Vital Signs Temp Pulse Resp BP O2 Del Method 97.8 F 60 16 106/56 L Room Air 11/25/23 10:28 11/25/23 10:28 11/25/23 10:28 11/25/23 10:28 11/25/23 10:28 Oxygen Delivery Method Room Air Weight: 165 lb Body Mass Index (BMI) 27.4 Charges/Coding Procedures Integumentary 111xxx-113xx: 44177 Marley subq tissue 20 sq cm/< Physical Exam Const alert, oriented x3 and no apparent distress General Appearance: cooperative HEENT normocephalic and head/scalp atraumatic Face and Sinus: normal facial exam Eyes EOMs intact bilaterally General Eye: normal appearance of both eyes Neck full ROM General: normal visual inspection Resp normal respiratory effort Effort and Inspection: able to speak in complete sentences Skin Wounds: wounds noted Neuro oriented x3 and CN's II-XII intact bilaterally Psych mental status grossly normal, thought process normal, cooperative, affect normaland speech normal Debridement Note Debridement Note Wound debrided: Upper back (superior cervical) Type of Debridement: Excisional debridement Anesthesia Used: 5% Lidocaine Gel Depth: Down to and including healthy tissue and in the subcutaneous layer Percentage of wound debrided: 100 Instrument Used: 3mm curette Tissue Removed: Slough and devitalized tissue Severity: Fat Layer Exposed Bleeding Controlled with: Pressure and Compression and gauze Patient tolerated procedure: Patient tolerated procedure well Post-Debridement Measurements and Additional Note: Post-Debridement Measurements/Treatment WC - Nurse 1 - General Ulcer Assessment Start: 10/28/23 10:49 Freq: Status: Active Protocol: WC.LOWEXT Activity Type Activity Date Activity User E-sign Co-sign Detail Recorded Client Recorded Date Recorded By Document 10/28/23 10:49 F Desktop 10/28/23 10:56 BMF Document 11/11/23 10:30 BMF Desktop 11/11/23 10:38 BMF Document 11/25/23 10:28 BMF Desktop 11/25/23 10:34 BMF 10/28/23 11/11/23 11/25/23 10:49 10:30 10:28 - Today's Visit Information Type of service Follow-up Visit Follow-up Visit Follow-up Visit (Physician/LOCK TENDER (Physician/LOCK TENDER (Physician/LOCK TENDER ) ) ) Arrival Mode Wheelchair Wheelchair Wheelchair Transfer Assistance None None None Patient Identification Verified (Name & Yes Yes Yes ) Patient Requires Transmission-Based No No No Precautions Height and Weight Body Mass Index (BMI) 27.4 27.4 27.4 BMI Classification Overweight Overweight Overweight Vital Signs Temperature (97.8 F-99.1 F) 97.1 F L 98.1 F 97.8 F Temperature Source Temporal Temporal Temporal Pulse Rate (60-100) 65 56 L 60 Pulse Location Monitor Monitor Monitor Respiratory Rate (12-18) 16 16 16 Respiratory rate source Observation Observation Observation Oxygen Delivery Method Room Air Room Air Room Air Blood Pressure (90/60-120/80) 105/47 L 100/41 L 106/56 L Blood Pressure Mean (mm Hg) 66 60 72 Source Monitor Monitor Monitor Position Sitting Sitting Sitting Blood Pressure Location Right Arm Right Arm Right Arm History Since Last Visit- (Skip if this is Patient's initial visit) Have you changed medications since your No No No last visit? Any new allergies or adverse reactions No No No Had a fall/change in ADL's that may No No No increase risk of falls Signs or symptoms of abuse and/or No No No neglect since last visit Have you been in the hospital since your No No No last visit? Has dressing in place as prescribed Yes Yes Yes Has compression in place as prescribed N/A N/A N/A Has offloadiing in place as prescribed N/A N/A N/A Experienced any changes in pain level or No No No management Left Footwear Regular Shoe Regular Shoe Regular Shoe Right Footwear Regular Shoe Regular Shoe Regular Shoe Pain Scale: 0-10 Numeric Is Patient Pain Free? Yes Yes Yes WC - Nurse 1 - General Ulcer Measurement Start: 10/28/23 10:49 Freq: Status: Active Protocol: Activity Type Activity Date Activity User E-sign Co-sign Detail Recorded Client Recorded Date Recorded By Document 10/28/23 10:49 [employer] Desktop 10/28/23 10:56 [employer] Document 11/11/23 10:30 Yibailin Desktop 11/11/23 10:38 [employer] Document 11/25/23 10:28 [employer] Desktop 11/25/23 10:34 BMF 10/28/23 11/11/23 11/25/23 10:49 10:30 10:28 Wound Center Nurse 1 #2- CERVICAL INFERIOR WOUND (SURGICAL) -Combined with other wound No No No -Current Size (cm) - Length 0.4 0.4 0.4 -Current Size (cm) - Width 0.6 0.3 0.5 -Current Size (cm) - Depth 2.1 1.6 2.1 -Total Square Cm 0.24 0.12 0.20 -Date of Last Picture (Recall this 10/28/23 11/11/23 11/25/23 field) -Photo Taken Yes Yes Yes -Epithelialization None Present None Present None Present -Tunneling No No -Undermining/Tunneling Yes No -Undermining/Tunneling Starts (O'clock 1 ) -Undermining/Tunneling Ends (O'clock) 2 -Maximum Distance (cm) 1.5 -Circular Undermining No -Exudate Amt Medium Medium Medium -Exudate Type Serosanguineous Yellow/Green Purulent -Wound Margin Distinct, Distinct, Distinct, Outline Outline Outline Attached Attached Attached -Granulation Amt Large (67-100%) Medium (34-66%) Large (67-100%) -Granulation Quality Red Red Red -Slough/Fibrin Yes Yes Yes -Necrosis Amt Small (1-33%) Medium (34-66%) Small (1-33%) -Necrotic Tissue Type Adherent Slough Adherent Slough Adherent Slough -Texture (Ritika-wound Skin Appearance) Assessed, Assessed, Assessed, Scarring Scarring Scarring -Moisture (Ritika-wound Skin Appearance) Assessed Assessed, Assessed Maceration -Color (Ritika-wound Skin Appearance) Assessed Assessed, Assessed Erythema -Temperature (Ritika-wound Skin No Abnormality No Abnormality No Abnormality Appearance) (Pt Warm) (Pt Warm) (Pt Warm) -Tenderness on Palpation (Ritika-wound No No No Skin Appearance) -Ulcer Cleansing Rinsed/ Soap and Water Soap and Water Irrigated with Saline -Foul Odor after Cleansing No No No -Anesthetic Used 5% Lidocaine 5% Lidocaine 5% Lidocaine Gel Gel Gel #1- SUPERIOR CERIVICAL SPINE (SURGICAL) -Combined with other wound No No No -Current Size (cm) - Length 0.5 0.7 0.6 -Current Size (cm) - Width 0.5 0.5 0.3 -Current Size (cm) - Depth 0.7 0.6 1.9 -Total Square Cm 0.25 0.35 0.18 -Date of Last Picture (Recall this 10/28/23 11/11/23 11/25/23 field) -Photo Taken Yes Yes Yes -Epithelialization None Present None Present -Tunneling No No -Undermining/Tunneling No No -Circular Undermining No -Exudate Amt Medium Medium Medium -Exudate Type Purulent Yellow/Green Purulent -Wound Margin Distinct, Distinct, Distinct, Outline Outline Outline Attached Attached Attached -Granulation Amt Large (67-100%) Medium (34-66%) Large (67-100%) -Granulation Quality Red Red Red -Slough/Fibrin Yes Yes Yes -Necrosis Amt Small (1-33%) Medium (34-66%) Small (1-33%) -Necrotic Tissue Type Adherent Slough Adherent Slough Adherent Slough -Texture (Ritika-wound Skin Appearance) Assessed, Assessed, Assessed, Scarring Scarring Scarring -Moisture (Ritika-wound Skin Appearance) Assessed Assessed, Assessed Maceration -Color (Ritika-wound Skin Appearance) Assessed Assessed, Assessed Erythema -Temperature (Ritika-wound Skin No Abnormality No Abnormality No Abnormality Appearance) (Pt Warm) (Pt Warm) (Pt Warm) -Tenderness on Palpation (Ritika-wound No No No Skin Appearance) -Ulcer Cleansing Rinsed/ Soap and Water Soap and Water Irrigated with Saline -Foul Odor after Cleansing No No No -Anesthetic Used 5% Lidocaine 5% Lidocaine 5% Lidocaine Gel Gel Gel WC - Nurse 2 - General Ulcer CM Notes Start: 10/28/23 10:49 Freq: Status: Active Protocol: Activity Type Activity Date Activity User E-sign Co-sign Detail Recorded Client Recorded Date Recorded By Document 10/28/23 11:14 Desktop 10/28/23 11:16 Document 11/11/23 10:45 Desktop 11/11/23 10:54 Document 11/25/23 10:40 Desktop 11/25/23 10:46 10/28/23 11/11/23 11/25/23 11:14 10:45 10:40 Wound Center Nurse 2 #2- CERVICAL INFERIOR WOUND (SURGICAL) -Time 11: 10:46 10:41 -Correct Patient Yes Yes Yes -Correct Side, Site, Position Yes Yes Yes -Correct Procedure Yes Yes Yes -Procedure Performed Yes Yes Yes -Type of Procedure Debridement Debridement Debridement -Clinical Debridement Subcutaneous Subcutaneous Subcutaneous -Tissue Removed Subcutaneous Subcutaneous Subcutaneous -Post Debridement (cm) - Length 0.4 0.4 0.4 -Post Debridement (cm) - Width 0.6 0.3 0.6 -Post Debridement (cm) - Depth 2.5 2.2 2.3 -Total Square (Post) (cm) 0.24 0.12 0.24 -Area of Debridement (cm) - Length 0.4 0.4 0.4 -Area of Debridement (cm) - Width 0.6 0.3 0.6 -Total Square (Area) (cm) 0.24 0.12 0.24 -Tunneling No No No -Undermining/Tunneling No No No -Circular Undermining No No No -Wound/Ulcer Outcome Not Healed Not Healed -Ulcer Cleansing Rinsed/ Rinsed/ Rinsed/ Irrigated with Irrigated with Irrigated with Saline Saline Saline -Foul Odor after Cleansing No No No -Bioengineered Tissue No No No -Bleeding Controlled with Pressure Pressure Pressure -Treatment Response Procedure Procedure Procedure Tolerated Well Tolerated Well Tolerated Well -Assistive Device(s) Wheelchair -Debridement - Subq, 1st 20sq cm No Yes No #1- SUPERIOR CERIVICAL SPINE (SURGICAL) -Time 11: 10:46 10:41 -Correct Patient Yes Yes Yes -Correct Side, Site, Position Yes Yes Yes -Correct Procedure Yes Yes Yes -Procedure Performed Yes Yes Yes -Type of Procedure Debridement Debridement Debridement -Clinical Debridement Subcutaneous Subcutaneous Subcutaneous -Tissue Removed Subcutaneous Subcutaneous Subcutaneous -Post Debridement (cm) - Length 0.7 0.7 0.6 -Post Debridement (cm) - Width 0.4 0.5 0.2 -Post Debridement (cm) - Depth 1.7 1.8 1.8 -Total Square (Post) (cm) 0.28 0.35 0.12 -Area of Debridement (cm) - Length 0.7 0.6 -Area of Debridement (cm) - Width 0.5 0.2 -Total Square (Area) (cm) 0.35 0.12 -Tunneling No No No -Undermining/Tunneling No No No -Circular Undermining No No No -Wound/Ulcer Outcome Not Healed Not Healed Not Healed -Ulcer Cleansing Rinsed/ Rinsed/ Rinsed/ Irrigated with Irrigated with Irrigated with Saline Saline Saline -Foul Odor after Cleansing No No No -Bioengineered Tissue No No -Bleeding Controlled with Pressure Pressure Pressure -Treatment Response Procedure Procedure Procedure Tolerated Well Tolerated Well Tolerated Well -Debridement - Subq, 1st 20sq cm Yes No Yes Pain Scale: 0-10 Numeric Is Patient Pain Free? Yes Yes Yes WC - Nurse 3 - General Ulcer D/C NN Start: 10/28/23 10:49 Freq: Status: Active Protocol: Activity Type Activity Date Activity User E-sign Co-sign Detail Recorded Client Recorded Date Recorded By Document 10/28/23 11:19 Desktop 10/28/23 11:20 Document 11/11/23 11:04 [facility] Desktop 11/11/23 11:06 [facility] Document 11/25/23 10:56 [facility] Desktop 11/25/23 10:57 [facility] 10/28/23 11/11/23 11/25/23 11:19 11:04 10:56 Wound Care Center Nurse 3 #2- CERVICAL INFERIOR WOUND (SURGICAL) -Ulcer Cleansing Rinsed/ Rinsed/ Rinsed/ Irrigated with Irrigated with Irrigated with Saline Saline Saline -Foul Odor after Cleansing No No -Primary Dressing Applied Aquacel Extra, Aquacel Extra, Aquacel Extra, Mepilex Border Mepilex Border Mepilex Border -Other Dressing FLUFFED GAUZE; PER GM RN -Primary Dressing Covered/Secured with Dry Gauze -Aquacel Extra 1 1 1 -Mepilex Border 1 1 1 #1- SUPERIOR CERIVICAL SPINE (SURGICAL) -Ulcer Cleansing Rinsed/ Rinsed/ Irrigated with Irrigated with Saline Saline -Foul Odor after Cleansing No No -Primary Dressing Applied Aquacel Extra, Aquacel Extra, Mepilex Border Mepilex Border -Other Dressing aquacel extra FLUFFED GAUZE; PER GM RN -Primary Dressing Covered/Secured with Dry Gauze -Aquacel Extra 0 0 -Mepilex Border 0 0 Treatment Response Procedure Procedure Procedure Tolerated Well Tolerated Well Tolerated Well Pain Scale: 0-10 Numeric Is Patient Pain Free? Yes Yes Yes Teaching: Wound Center Dressing changes -Person Taught Patient -Teaching Method Discussion, Demonstration -Response to teaching Verbalize understanding WC - Visit Discharge Discharge Condition Stable Stable Stable Ambulatory Status Wheelchair Wheelchair Wheelchair Transportation Private Auto ecf ECF Medication Reconcilliation completed & No provided to patient/care provider Clinical Summary of Care Provided Yes Facility Type Senior Living Care Director Of Design Care Facility Facility Additional Wound Wound debrided: Upper back (inferior Cervical) Type of Debridement: Excisional debridement Anesthesia Used: 5% Lidocaine Gel Depth: Down to and including healthy tissue and in the subcutaneous layer Percentage of wound debrided: 100 Instrument Used: 3mm curette Tissue Removed: Slough and devitalized tissue Severity: Fat Layer Exposed Amount of bleeding with debridement: Mild Bleeding Controlled with: Pressure Patient tolerated procedure: Patient tolerated procedure well Assessment/Plan Assessment/Plan (1) Non-healing surgical wound: CODE(S): T81.89XA - Other complications of procedures, not elsewhere classified, initial encounter QUALIFIERS: Encounter type: initial encounter Qualified Code(s): T81.89XA - Other complications of procedures, not elsewhere classified, initial encounter (2) Multiple myeloma: CODE(S): C90.00 - Multiple myeloma not having achieved remission (3) History of radiation therapy: CODE(S): Z92.3 - Personal history of irradiation (4) Paraplegia: CODE(S): G82.20 - Paraplegia, unspecified PLAN: Plan Debridement done as documented above, procedure was well-tolerated. Due to non availability of HBO at this facility at this time, [facility] refer to [facility]. Fo now, continue Aquacel extra, change daily to twice daily depending on drainage. Continue Ariel twice daily. Vitamin C, D and zinc also recommended, he voiced understanding. His questions were answered and he was advised to let us know if he has any further questions or concerns. Follow-up in 2 weeks per patient preference. This note was generated with [employer] dictation software. It may contain incorrectwords, spelling, and punctuation that were not noted in checking the note beforesigning. 11/25/23 1139 <Electronically signed by Te Shah MD> Cosigner Signature (if applicable): CC: ~ Signed [facility] Work Phone: [phone]) 362-105202-15-2024 Progress note Author Te Shah [facility] November 11, 2023 12:33pm Note Date/Time November 11, 2023 12:33pm [facility] [address] [place] [address] Progress Note - Wound Care 11/11/23 1230 MR#: [id number] Acct: [id number] Name: ARMAND BARRON Rep #:[id number] : 1955 68 From: Te chavez MD PCP: Dr. Iraida Balderas MD Status:REG RCR Location: History of Present Illness Date of Service: 11/11/23 Chief Complaint: Non healing surgical wound History of Wound: Mr. Barron is a 68-year-old who was referred to this facility due to nonhealing surgical wound. Had surgery in October due to multiple myeloma. Surgery was uneventful with most of the surgical site healed but 2 areas which have not healed. He states that he has had wound dressings down to the area including a wound VAC. Not particularly sure what type of dressings hehas had. He is not sure how much drainage he is getting from the area either. Currently resides in an assisted living facility. Still follows up closely withoncology and is on monthly chemotherapy regimen and dexamethasone. Had also hadradiation therapy to the area. He feels well otherwise. States that he eats good. Progress of Wound: No new concerns at this time. Awaiting HBO consult as patient is now open to this. Per oncology, no contraindication to HBO due to his diagnosis of myeloma or while on immunotherapy. No known history of cardiac or pulmonary disease perpatient. Objective Data Objective Data Vital Signs: Vital Signs Temp Pulse Resp BP O2 Del Method 98.1 F 56 L 16 100/41 L Room Air 11/11/23 10:30 11/11/23 10:30 11/11/23 10:30 11/11/23 10:30 11/11/23 10:30 Oxygen Delivery Method Room Air Weight: 165 lb Body Mass Index (BMI) 27.4 Charges/Coding Procedures Integumentary 111xxx-113xx: 00008 Marley subq tissue 20 sq cm/< Debridement Note Debridement Note Wound debrided: Upper back (superior cervical) Type of Debridement: Excisional debridement Anesthesia Used: 5% Lidocaine Gel Depth: Down to and including healthy tissue and in the subcutaneous layer Percentage of wound debrided: 100 Instrument Used: 3mm curette Tissue Removed: Slough and devitalized tissue Severity: Fat Layer Exposed Bleeding Controlled with: Pressure and Compression and gauze Patient tolerated procedure: Patient tolerated procedure well Post-Debridement Measurements and Additional Note: Post-Debridement Measurements/Treatment - Nurse 1 - General Ulcer Assessment Start: 10/28/23 10:49 Freq: Status: Active Protocol: RAUL Activity Type Activity Date Activity User E-sign Co-sign Detail Recorded Client Recorded Date Recorded By Document 10/28/23 10:49 [employer] 10/28/23 10:56 Yibailin Document 11/11/23 10:30 [employer] Desktop 11/11/23 10:38 Yibailin 10/28/23 11/11/23 10:49 10:30 - Today's Visit Information Type of service Follow-up Visit Follow-up Visit (Physician/LOCK TENDER (Physician/LOCK TENDER ) ) Arrival Mode Wheelchair Wheelchair Transfer Assistance None None Patient Identification Verified (Name & Yes Yes ) Patient Requires Transmission-Based No No Precautions Height and Weight Body Mass Index (BMI) 27.4 27.4 BMI Classification Overweight Overweight Vital Signs Temperature (97.8 F-99.1 F) 97.1 F L 98.1 F Temperature Source Temporal Temporal Pulse Rate (60-100) 65 56 L Pulse Location Monitor Monitor Respiratory Rate (12-18) 16 16 Respiratory rate source Observation Observation Oxygen Delivery Method Room Air Room Air Blood Pressure (90/60-120/80) 105/47 L 100/41 L Blood Pressure Mean (mm Hg) 66 60 Source Monitor Monitor Position Sitting Sitting Blood Pressure Location Right Arm Right Arm History Since Last Visit- (Skip if this is Patient's initial visit) Have you changed medications since your No No last visit? Any new allergies or adverse reactions No No Had a fall/change in ADL's that may No No increase risk of falls Signs or symptoms of abuse and/or No No neglect since last visit Have you been in the hospital since your No No last visit? Has dressing in place as prescribed Yes Yes Has compression in place as prescribed N/A N/A Has offloadiing in place as prescribed N/A N/A Experienced any changes in pain level or No No management Left Footwear Regular Shoe Regular Shoe Right Footwear Regular Shoe Regular Shoe Pain Scale: 0-10 Numeric Is Patient Pain Free? Yes Yes WC - Nurse 1 - General Ulcer Measurement Start: 10/28/23 10:49 Freq: Status: Active Protocol: Activity Type Activity Date Activity User E-sign Co-sign Detail Recorded Client Recorded Date Recorded By Document 10/28/23 10:49 [employer] Desktop 10/28/23 10:56 [employer] Document 11/11/23 10:30 [employer] Desktop 11/11/23 10:38 [facility] 10/28/23 11/11/23 10:49 10:30 Wound Center Nurse 1 #2- CERVICAL INFERIOR WOUND (SURGICAL) -Combined with other wound No No -Current Size (cm) - Length 0.4 0.4 -Current Size (cm) - Width 0.6 0.3 -Current Size (cm) - Depth 2.1 1.6 -Total Square Cm 0.24 0.12 -Date of Last Picture (Recall this 10/28/23 11/11/23 field) -Photo Taken Yes Yes -Epithelialization None Present None Present -Tunneling No -Undermining/Tunneling Yes -Undermining/Tunneling Starts (O'clock 1 ) -Undermining/Tunneling Ends (O'clock) 2 -Maximum Distance (cm) 1.5 -Exudate Amt Medium Medium -Exudate Type Serosanguineous Yellow/Green -Wound Margin Distinct, Distinct, Outline Outline Attached Attached -Granulation Amt Large (67-100%) Medium (34-66%) -Granulation Quality Red Red -Slough/Fibrin Yes Yes -Necrosis Amt Small (1-33%) Medium (34-66%) -Necrotic Tissue Type Adherent Slough Adherent Slough -Texture (Ritika-wound Skin Appearance) Assessed, Assessed, Scarring Scarring -Moisture (Ritika-wound Skin Appearance) Assessed Assessed, Maceration -Color (Ritika-wound Skin Appearance) Assessed Assessed, Erythema -Temperature (Ritika-wound Skin No Abnormality No Abnormality Appearance) (Pt Warm) (Pt Warm) -Tenderness on Palpation (Ritika-wound No No Skin Appearance) -Ulcer Cleansing Rinsed/ Soap and Water Irrigated with Saline -Foul Odor after Cleansing No No -Anesthetic Used 5% Lidocaine 5% Lidocaine Gel Gel #1- SUPERIOR CERIVICAL SPINE (SURGICAL) -Combined with other wound No No -Current Size (cm) - Length 0.5 0.7 -Current Size (cm) - Width 0.5 0.5 -Current Size (cm) - Depth 0.7 0.6 -Total Square Cm 0.25 0.35 -Date of Last Picture (Recall this 10/28/23 11/11/23 field) -Photo Taken Yes Yes -Epithelialization None Present -Tunneling No -Undermining/Tunneling No -Exudate Amt Medium Medium -Exudate Type Purulent Yellow/Green -Wound Margin Distinct, Distinct, Outline Outline Attached Attached -Granulation Amt Large (67-100%) Medium (34-66%) -Granulation Quality Red Red -Slough/Fibrin Yes Yes -Necrosis Amt Small (1-33%) Medium (34-66%) -Necrotic Tissue Type Adherent Slough Adherent Slough -Texture (Ritika-wound Skin Appearance) Assessed, Assessed, Scarring Scarring -Moisture (Ritika-wound Skin Appearance) Assessed Assessed, Maceration -Color (Ritika-wound Skin Appearance) Assessed Assessed, Erythema -Temperature (Ritika-wound Skin No Abnormality No Abnormality Appearance) (Pt Warm) (Pt Warm) -Tenderness on Palpation (Ritika-wound No No Skin Appearance) -Ulcer Cleansing Rinsed/ Soap and Water Irrigated with Saline -Foul Odor after Cleansing No No -Anesthetic Used 5% Lidocaine 5% Lidocaine Gel Gel WC - Nurse 2 - General Ulcer CM Notes Start: 10/28/23 10:49 Freq: Status: Active Protocol: Activity Type Activity Date Activity User E-sign Co-sign Detail Recorded Client Recorded Date Recorded By Document 10/28/23 11:14 GM Desktop 10/28/23 11:16 GM Document 11/11/23 10:45 GM Desktop 02/15/24 10:54 GM 10/28/23 11/11/23 11:14 10:45 Wound Center Nurse 2 #2- CERVICAL INFERIOR WOUND (SURGICAL) -Time 11:14 10:46 -Correct Patient Yes Yes -Correct Side, Site, Position Yes Yes -Correct Procedure Yes Yes -Procedure Performed Yes Yes -Type of Procedure Debridement Debridement -Clinical Debridement Subcutaneous Subcutaneous -Tissue Removed Subcutaneous Subcutaneous -Post Debridement (cm) - Length 0.4 0.4 -Post Debridement (cm) - Width 0.6 0.3 -Post Debridement (cm) - Depth 2.5 2.2 -Total Square (Post) (cm) 0.24 0.12 -Area of Debridement (cm) - Length 0.4 0.4 -Area of Debridement (cm) - Width 0.6 0.3 -Total Square (Area) (cm) 0.24 0.12 -Tunneling No No -Undermining/Tunneling No No -Circular Undermining No No -Wound/Ulcer Outcome Not Healed -Ulcer Cleansing Rinsed/ Rinsed/ Irrigated with Irrigated with Saline Saline -Foul Odor after Cleansing No No -Bioengineered Tissue No No -Bleeding Controlled with Pressure Pressure -Treatment Response Procedure Procedure Tolerated Well Tolerated Well -Assistive Device(s) Wheelchair -Debridement - Subq, 1st 20sq cm No Yes #1- SUPERIOR CERIVICAL SPINE (SURGICAL) -Time 11:15 10:46 -Correct Patient Yes Yes -Correct Side, Site, Position Yes Yes -Correct Procedure Yes Yes -Procedure Performed Yes Yes -Type of Procedure Debridement Debridement -Clinical Debridement Subcutaneous Subcutaneous -Tissue Removed Subcutaneous Subcutaneous -Post Debridement (cm) - Length 0.7 0.7 -Post Debridement (cm) - Width 0.4 0.5 -Post Debridement (cm) - Depth 1.7 1.8 -Total Square (Post) (cm) 0.28 0.35 -Area of Debridement (cm) - Length 0.7 -Area of Debridement (cm) - Width 0.5 -Total Square (Area) (cm) 0.35 -Tunneling No No -Undermining/Tunneling No No -Circular Undermining No No -Wound/Ulcer Outcome Not Healed Not Healed -Ulcer Cleansing Rinsed/ Rinsed/ Irrigated with Irrigated with Saline Saline -Foul Odor after Cleansing No No -Bioengineered Tissue No No -Bleeding Controlled with Pressure Pressure -Treatment Response Procedure Procedure Tolerated Well Tolerated Well -Debridement - Subq, 1st 20sq cm Yes No Pain Scale: 0-10 Numeric Is Patient Pain Free? Yes Yes - Nurse 3 - General Ulcer D/C NN Start: 10/28/23 10:49 Freq: Status: Active Protocol: Activity Type Activity Date Activity User E-sign Co-sign Detail Recorded Client Recorded Date Recorded By Document 10/28/23 11:19 Desktop 10/28/23 11:20 RB Document 11/11/23 11:04 [facility] Desktop 11/11/23 11:06 BMF 10/28/23 11/11/23 11:19 11:04 Wound Care Center Nurse 3 #2- CERVICAL INFERIOR WOUND (SURGICAL) -Ulcer Cleansing Rinsed/ Rinsed/ Irrigated with Irrigated with Saline Saline -Foul Odor after Cleansing No -Primary Dressing Applied Aquacel Extra, Aquacel Extra, Mepilex Border Mepilex Border -Aquacel Extra 1 1 -Mepilex Border 1 1 #1- SUPERIOR CERIVICAL SPINE (SURGICAL) -Ulcer Cleansing Rinsed/ Irrigated with Saline -Foul Odor after Cleansing No -Primary Dressing Applied Aquacel Extra, Mepilex Border -Other Dressing aquacel extra -Aquacel Extra 0 -Mepilex Border 0 Treatment Response Procedure Procedure Tolerated Well Tolerated Well Pain Scale: 0-10 Numeric Is Patient Pain Free? Yes Yes Teaching: Wound Center Dressing changes -Person Taught Patient -Teaching Method Discussion, Demonstration -Response to teaching Verbalize understanding WC - Visit Discharge Discharge Condition Stable Stable Ambulatory Status Wheelchair Wheelchair Transportation Private Auto ecf Medication Reconcilliation completed & No provided to patient/care provider Clinical Summary of Care Provided Yes Facility Type Director Of Design Care Facility Additional Wound Wound debrided: Upper back (inferior Cervical) Type of Debridement: Excisional debridement Anesthesia Used: 5% Lidocaine Gel Depth: Down to and including healthy tissue and in the subcutaneous layer Percentage of wound debrided: 100 Instrument Used: 3mm curette Tissue Removed: Slough and devitalized tissue Severity: Fat Layer Exposed Amount of bleeding with debridement: Mild Bleeding Controlled with: Pressure Patient tolerated procedure: Patient tolerated procedure well Assessment/Plan Assessment/Plan (1) Non-healing surgical wound: CODE(S): T81.89XA - Other complications of procedures, not elsewhere classified, initial encounter QUALIFIERS: Encounter type: initial encounter Qualified Code(s): T81.89XA - Other complications of procedures, not elsewhere classified, initial encounter (2) Multiple myeloma: CODE(S): C90.00 - Multiple myeloma not having achieved remission (3) History of radiation therapy: CODE(S): Z92.3 - Personal history of irradiation (4) Paraplegia: CODE(S): G82.20 - Paraplegia, unspecified PLAN: Plan Debridement done as documented above, procedure was well-tolerated. No new concerns reported at this time. Awaiting HBO consult. Okay per oncology as documented above. For now, continue Aquacel extra, change daily to twice daily depending on drainage. Prealbumin slightly low, continue Ariel twice daily. Vitamin C, D and zinc also recommended, he voiced understanding. His questions were answered and he was advised to let us know if he has any further questions or concerns. Follow-up in 2 weeks per patient preference. This note was generated with Hopscotchation software. It may contain incorrectwords, spelling, and punctuation that were not noted in checking the note beforesigning. 11/11/23 1233 <Electronically signed by Te Shah MD> Cosigner Signature (if applicable): CC: ~ Signed [facility] Work Phone: 1(920) 791-161102-01-2024 Progress note Author Te Shah [facility] October 28, 2023 1:07pm Note Date/Time October 28, 2023 1 1:39am [facility] [address] [place] [id number] Progress Note - Wound Care 10/28/23 1134 MR#: [id number] Acct: [id number] Name: ARMAND BARRON LEAH Rep #:[id number] : 1955 68 From: Te chavez MD PCP: Dr. Iraida Balderas MD Status:REG RCR Location: History of Present Illness Date of Service: 10/28/23 Chief Complaint: Non healing surgical wound History of Wound: Mr. Barron is a 68-year-old who was referred to this facility due to nonhealing surgical wound. Had surgery in October due to multiple myeloma. Surgery was uneventful with most of the surgical site healed but 2 areas which have not healed. He states that he has had wound dressings down to the area including a wound VAC. Not particularly sure what type of dressings hehas had. He is not sure how much drainage he is getting from the area either. Currently resides in an assisted living facility. Still follows up closely withoncology and is on monthly chemotherapy regimen and dexamethasone. Had also hadradiation therapy to the area. He feels well otherwise. States that he eats good. Progress of Wound: No new concerns at this time. No significant drainage reported. Now open to hyperbaric oxygen therapy. Still gets immunotherapy but last radiation was saidto be in the fall 2022. No known history of heart or pulmonary disease. Objective Data Objective Data Vital Signs: Vital Signs Temp Pulse Resp BP O2 Del Method 97.1 F L 65 16 105/47 L Room Air 10/28/23 10:49 10/28/23 10:49 10/28/23 10:49 10/28/23 10:49 10/28/23 10:49 Oxygen Delivery Method Room Air Weight: 165 lb Body Mass Index (BMI) 27.4 Physical Exam Const alert, oriented x3 and no apparent distress General Appearance: cooperative HEENT normocephalic and head/scalp atraumatic Face and Sinus: normal facial exam Eyes EOMs intact bilaterally General Eye: normal appearance of both eyes Neck full ROM General: normal visual inspection Resp normal respiratory effort Effort and Inspection: able to speak in complete sentences Skin Wounds: wounds noted Neuro oriented x3 and CN's II-XII intact bilaterally Psych mental status grossly normal, thought process normal, cooperative, affect normaland speech normal Debridement Note Debridement Note Wound debrided: Upper back (superior cervical) Type of Debridement: Excisional debridement Anesthesia Used: 5% Lidocaine Gel Depth: Down to and including healthy tissue and in the subcutaneous layer Percentage of wound debrided: 100 Instrument Used: 3mm curette Tissue Removed: Slough and devitalized tissue Severity: Fat Layer Exposed Bleeding Controlled with: Pressure and Compression and gauze Patient tolerated procedure: Patient tolerated procedure well Post-Debridement Measurements and Additional Note: Post-Debridement Measurements/Treatment ELSY - Nurse 1 - General Ulcer Assessment Start: 10/28/23 10:49 Freq: Status: Active Protocol: RAUL Activity Type Activity Date Activity User E-sign Co-sign Detail Recorded Client Recorded Date Recorded By Document 10/28/23 10:49 [facility] [employer] 10/28/23 10:56 [facility] 10/28/23 10:49 WC - Today's Visit Information Type of service Follow-up Visit (Physician/LOCK TENDER ) Arrival Mode Wheelchair Transfer Assistance None Patient Identification Verified (Name & Yes ) Patient Requires Transmission-Based No Precautions Height and Weight Body Mass Index (BMI) 27.4 BMI Classification Overweight Vital Signs Temperature (97.8 F-99.1 F) 97.1 F L Temperature Source Temporal Pulse Rate (60-100) 65 Pulse Location Monitor Respiratory Rate (12-18) 16 Respiratory rate source Observation Oxygen Delivery Method Room Air Blood Pressure (90/60-120/80) 105/47 L Blood Pressure Mean (mm Hg) 66 Source Monitor Position Sitting Blood Pressure Location Right Arm History Since Last Visit- (Skip if this is Patient's initial visit) Have you changed medications since your No last visit? Any new allergies or adverse reactions No Had a fall/change in ADL's that may No increase risk of falls Signs or symptoms of abuse and/or No neglect since last visit Have you been in the hospital since your No last visit? Has dressing in place as prescribed Yes Has compression in place as prescribed N/A Has offloadiing in place as prescribed N/A Experienced any changes in pain level or No management Left Footwear Regular Shoe Right Footwear Regular Shoe Pain Scale: 0-10 Numeric Is Patient Pain Free? Yes - Nurse 1 - General Ulcer Measurement Start: 10/28/23 10:49 Freq: Status: Active Protocol: Activity Type Activity Date Activity User E-sign Co-sign Detail Recorded Client Recorded Date Recorded By Document 10/28/23 10:49 [facility] [employer] 10/28/23 10:56 [facility] 10/28/23 10:49 Wound Center Nurse 1 #2- CERVICAL INFERIOR WOUND (SURGICAL) -Combined with other wound No -Current Size (cm) - Length 0.4 -Current Size (cm) - Width 0.6 -Current Size (cm) - Depth 2.1 -Total Square Cm 0.24 -Date of Last Picture (Recall this 10/28/23 field) -Photo Taken Yes -Epithelialization None Present -Tunneling No -Undermining/Tunneling Yes -Undermining/Tunneling Starts (O'clock 1 ) -Undermining/Tunneling Ends (O'clock) 2 -Maximum Distance (cm) 1.5 -Exudate Amt Medium -Exudate Type Serosanguineous -Wound Margin Distinct, Outline Attached -Granulation Amt Large (67-100%) -Granulation Quality Red -Slough/Fibrin Yes -Necrosis Amt Small (1-33%) -Necrotic Tissue Type Adherent Slough -Texture (Ritika-wound Skin Appearance) Assessed, Scarring -Moisture (Ritika-wound Skin Appearance) Assessed -Color (Ritika-wound Skin Appearance) Assessed -Temperature (Irtika-wound Skin No Abnormality Appearance) (Pt Warm) -Tenderness on Palpation (Ritika-wound No Skin Appearance) -Ulcer Cleansing Rinsed/ Irrigated with Saline -Foul Odor after Cleansing No -Anesthetic Used 5% Lidocaine Gel #1- SUPERIOR CERIVICAL SPINE (SURGICAL) -Combined with other wound No -Current Size (cm) - Length 0.5 -Current Size (cm) - Width 0.5 -Current Size (cm) - Depth 0.7 -Total Square Cm 0.25 -Date of Last Picture (Recall this 10/28/23 field) -Photo Taken Yes -Epithelialization None Present -Tunneling No -Undermining/Tunneling No -Exudate Amt Medium -Exudate Type Purulent -Wound Margin Distinct, Outline Attached -Granulation Amt Large (67-100%) -Granulation Quality Red -Slough/Fibrin Yes -Necrosis Amt Small (1-33%) -Necrotic Tissue Type Adherent Slough -Texture (Ritika-wound Skin Appearance) Assessed, Scarring -Moisture (Ritika-wound Skin Appearance) Assessed -Color (Ritika-wound Skin Appearance) Assessed -Temperature (Ritika-wound Skin No Abnormality Appearance) (Pt Warm) -Tenderness on Palpation (Ritika-wound No Skin Appearance) -Ulcer Cleansing Rinsed/ Irrigated with Saline -Foul Odor after Cleansing No -Anesthetic Used 5% Lidocaine Gel WC - Nurse 2 - General Ulcer CM Notes Start: 10/28/23 10:49 Freq: Status: Active Protocol: Activity Type Activity Date Activity User E-sign Co-sign Detail Recorded Client Recorded Date Recorded By Document 10/28/23 11:14 GM Desktop 10/28/23 11:16 GM 10/28/23 11:14 Wound Center Nurse 2 #2- CERVICAL INFERIOR WOUND (SURGICAL) -Time 11:14 -Correct Patient Yes -Correct Side, Site, Position Yes -Correct Procedure Yes -Procedure Performed Yes -Type of Procedure Debridement -Clinical Debridement Subcutaneous -Tissue Removed Subcutaneous -Post Debridement (cm) - Length 0.4 -Post Debridement (cm) - Width 0.6 -Post Debridement (cm) - Depth 2.5 -Total Square (Post) (cm) 0.24 -Area of Debridement (cm) - Length 0.4 -Area of Debridement (cm) - Width 0.6 -Total Square (Area) (cm) 0.24 -Tunneling No -Undermining/Tunneling No -Circular Undermining No -Wound/Ulcer Outcome Not Healed -Ulcer Cleansing Rinsed/ Irrigated with Saline -Foul Odor after Cleansing No -Bioengineered Tissue No -Bleeding Controlled with Pressure -Treatment Response Procedure Tolerated Well -Assistive Device(s) Wheelchair -Debridement - Subq, 1st 20sq cm No #1- SUPERIOR CERIVICAL SPINE (SURGICAL) -Time 11:15 -Correct Patient Yes -Correct Side, Site, Position Yes -Correct Procedure Yes -Procedure Performed Yes -Type of Procedure Debridement -Clinical Debridement Subcutaneous -Tissue Removed Subcutaneous -Post Debridement (cm) - Length 0.7 -Post Debridement (cm) - Width 0.4 -Post Debridement (cm) - Depth 1.7 -Total Square (Post) (cm) 0.28 -Tunneling No -Undermining/Tunneling No -Circular Undermining No -Wound/Ulcer Outcome Not Healed -Ulcer Cleansing Rinsed/ Irrigated with Saline -Foul Odor after Cleansing No -Bioengineered Tissue No -Bleeding Controlled with Pressure -Treatment Response Procedure Tolerated Well -Debridement - Subq, 1st 20sq cm Yes Pain Scale: 0-10 Numeric Is Patient Pain Free? Yes WC - Nurse 3 - General Ulcer D/C NN Start: 10/28/23 10:49 Freq: Status: Active Protocol: Activity Type Activity Date Activity User E-sign Co-sign Detail Recorded Client Recorded Date Recorded By Document 10/28/23 11:19 Desktop 10/28/23 11:20 RB 10/28/23 11:19 Wound Care Center Nurse 3 #2- CERVICAL INFERIOR WOUND (SURGICAL) -Ulcer Cleansing Rinsed/ Irrigated with Saline -Primary Dressing Applied Aquacel Extra, Mepilex Border -Aquacel Extra 1 -Mepilex Border 1 #1- SUPERIOR CERIVICAL SPINE (SURGICAL) -Other Dressing aquacel extra Treatment Response Procedure Tolerated Well Pain Scale: 0-10 Numeric Is Patient Pain Free? Yes Teaching: Wound Center Dressing changes -Person Taught Patient -Teaching Method Discussion, Demonstration -Response to teaching Verbalize understanding WC - Visit Discharge Discharge Condition Stable Ambulatory Status Wheelchair Transportation Private Auto Medication Reconcilliation completed & No provided to patient/care provider Clinical Summary of Care Provided Yes Additional Wound Wound debrided: Upper back (inferior Cervical) Type of Debridement: Excisional debridement Anesthesia Used: 5% Lidocaine Gel Depth: Down to and including healthy tissue and in the subcutaneous layer Percentage of wound debrided: 100 Instrument Used: 3mm curette Tissue Removed: Slough and devitalized tissue Severity: Fat Layer Exposed Amount of bleeding with debridement: Mild Bleeding Controlled with: Pressure Patient tolerated procedure: Patient tolerated procedure well Assessment/Plan Assessment/Plan (1) Non-healing surgical wound: CODE(S): T81.89XA - Other complications of procedures, not elsewhere classified, initial encounter QUALIFIERS: Encounter type: initial encounter Qualified Code(s): T81.89XA - Other complications of procedures, not elsewhere classified, initial encounter (2) Multiple myeloma: CODE(S): C90.00 - Multiple myeloma not having achieved remission (3) History of radiation therapy: CODE(S): Z92.3 - Personal history of irradiation (4) Paraplegia: CODE(S): G82.20 - Paraplegia, unspecified PLAN: Plan Debridement done as documented above, procedure was well-tolerated. No new concerns reported at this time. Some improvement noted. As above, now open to HBO. Has questions about transportation. Will look into the process. For now,continue Aquacel extra, change daily to twice daily depending on drainage. Prealbumin slightly low, continue Ariel twice daily. Vitamin C, D and zinc alsorecommended, he voiced understanding. His questions were answered and he was advised to let us know if he has any further questions or concerns. Follow-up in 2 weeks per patient preference. This note was generated with Hopscotchation software. It may contain incorrectwords, spelling, and punctuation that were not noted in checking the note beforesigning. 10/28/23 3820 <Electronically signed by Te Shah MD> Cosigner Signature (if applicable): CC: ~ Signed [facility] Work Phone: 1(852) 582-554501-18-2024 Progress note Author Te Shah [facility] October 14, 2023 1:24pm Note Date/Time October 14, 2023 1 2:46pm [facility] [address] [place] [address] Progress Note - Wound Care 10/14/23 1246 MR#: [id number] Acct: [id number] Name: ARMAND BARRON Rep #:[id number] 1 : 1955 68 From: Te chavez MD PCP: Dr. Iraida Balderas MD Status:REG RCR Location: History of Present Illness Date of Service: 10/14/23 Chief Complaint: Non healing surgical wound History of Wound: Mr. Barron is a 68-year-old who was referred to this facility due to nonhealing surgical wound. Had surgery in October due to multiple myeloma. Surgery was uneventful with most of the surgical site healed but 2 areas which have not healed. He states that he has had wound dressings down to the area including a wound VAC. Not particularly sure what type of dressings hehas had. He is not sure how much drainage he is getting from the area either. Currently resides in an assisted living facility. Still follows up closely withoncology and is on monthly chemotherapy regimen and dexamethasone. Had also hadradiation therapy to the area. He feels well otherwise. States that he eats good. Progress of Wound: No new concerns at this time. Had an appointment with his surgeon last week andstates that his surgeon also recommended hyperbaric oxygen therapy but he is still thinking about this. Objective Data Objective Data Vital Signs: Vital Signs Temp Pulse Resp BP O2 Del Method 97.8 F 56 L 16 106/59 L Room Air 10/14/23 10:36 10/14/23 10:36 10/14/23 10:36 10/14/23 10:36 10/14/23 10:36 Oxygen Delivery Method Room Air Weight: 165 lb Body Mass Index (BMI) 27.4 Charges/Coding Procedures Integumentary 111xxx-113xx: 17907 Marley subq tissue 20 sq cm/< Physical Exam Const alert, oriented x3 and no apparent distress General Appearance: cooperative HEENT normocephalic and head/scalp atraumatic Face and Sinus: normal facial exam Eyes EOMs intact bilaterally General Eye: normal appearance of both eyes Neck full ROM General: normal visual inspection Resp normal respiratory effort Effort and Inspection: able to speak in complete sentences Skin Wounds: wounds noted Neuro oriented x3 and CN's II-XII intact bilaterally Psych mental status grossly normal, thought process normal, cooperative, affect normaland speech normal Debridement Note Debridement Note Wound debrided: Upper back (superior cervical) Type of Debridement: Excisional debridement Anesthesia Used: 5% Lidocaine Gel Depth: Down to and including healthy tissue and in the subcutaneous layer Percentage of wound debrided: 100 Instrument Used: 5mm curette Tissue Removed: Slough and devitalized tissue Severity: Fat Layer Exposed Bleeding Controlled with: Pressure and Compression and gauze Patient tolerated procedure: Patient tolerated procedure well Post-Debridement Measurements and Additional Note: Post-Debridement Measurements/Treatment - Nurse 1 - General Ulcer Assessment Start: 09/30/23 10:40 Freq: Status: Active Protocol: RAUL Activity Type Activity Date Activity User E-sign Co-sign Detail Recorded Client Recorded Date Recorded By Document 09/30/23 10:41 Desktop 09/30/23 10:49 DL Document 10/14/23 10:36 [facility] Desktop 10/14/23 10:45 [facility] 09/30/23 10/14/23 10:41 10:36 - Today's Visit Information Type of service Follow-up Visit Follow-up Visit (Physician/LOCK TENDER (Physician/LOCK TENDER ) ) Arrival Mode Wheelchair Wheelchair Transfer Assistance None None Patient Identification Verified (Name & Yes Yes ) Patient Requires Transmission-Based No No Precautions Height and Weight Body Mass Index (BMI) 27.4 27.4 BMI Classification Overweight Overweight Vital Signs Temperature (97.8 F-99.1 F) 98 F 97.8 F Temperature Source Temporal Temporal Pulse Rate (60-100) 57 L 56 L Pulse Location Monitor Monitor Respiratory Rate (12-18) 18 16 Respiratory rate source Observation Observation Oxygen Delivery Method Room Air Blood Pressure (90/60-120/80) 96/49 L 106/59 L Blood Pressure Mean (mm Hg) 64 74 Source Monitor Monitor Position Sitting History Since Last Visit- (Skip if this is Patient's initial visit) Have you changed medications since your No No last visit? Any new allergies or adverse reactions No No Had a fall/change in ADL's that may No No increase risk of falls Signs or symptoms of abuse and/or No No neglect since last visit Have you been in the hospital since your No No last visit? Has dressing in place as prescribed Yes Yes Has compression in place as prescribed N/A N/A Has offloadiing in place as prescribed N/A N/A Experienced any changes in pain level or No No management Left Footwear Regular Shoe Right Footwear Regular Shoe Pain Scale: 0-10 Numeric Is Patient Pain Free? Yes Yes WC - Nurse 1 - General Ulcer Measurement Start: 09/30/23 10:40 Freq: Status: Active Protocol: Activity Type Activity Date Activity User E-sign Co-sign Detail Recorded Client Recorded Date Recorded By Document 09/30/23 10:41 DL Desktop 09/30/23 10:49 DL Document 10/14/23 10:36 [facility] Desktop 10/14/23 10:45 [facility]F 09/30/23 10/14/23 10:41 10:36 Wound Center Nurse 1 #2- CERVICAL INFERIOR WOUND (SURGICAL) -Combined with other wound No -Current Size (cm) - Length 0.7 0.3 -Current Size (cm) - Width 0.8 0.4 -Current Size (cm) - Depth 2 1.5 -Total Square Cm 0.56 0.12 -Date of Last Picture (Recall this 10/14/23 field) -Photo Taken Yes -Epithelialization None Present -Exudate Amt Medium Large -Exudate Type Yellow/Green Purulent -Wound Margin Distinct, Distinct, Outline Outline Attached Attached -Granulation Amt Small (1-33%) Large (67-100%) -Granulation Quality Red Red -Slough/Fibrin Yes -Necrosis Amt Small (1-33%) Small (1-33%) -Necrotic Tissue Type Adherent Slough Adherent Slough -Structure Exposed N/A -Texture (Ritika-wound Skin Appearance) Scarring Assessed, Scarring -Moisture (Ritika-wound Skin Appearance) No Abnormality Assessed -Color (Ritika-wound Skin Appearance) No Abnormality Assessed -Temperature (Ritika-wound Skin No Abnormality No Abnormality Appearance) (Pt Warm) (Pt Warm) -Tenderness on Palpation (Ritika-wound No No Skin Appearance) -Ulcer Cleansing Rinsed/ Rinsed/ Irrigated with Irrigated with Saline Saline -Foul Odor after Cleansing No No -Anesthetic Used 5% Lidocaine 5% Lidocaine Gel Gel #1- SUPERIOR CERIVICAL SPINE (SURGICAL) -Combined with other wound No -Current Size (cm) - Length 0.8 0.7 -Current Size (cm) - Width 0.5 0.3 -Current Size (cm) - Depth 0.7 0.5 -Total Square Cm 0.40 0.21 -Date of Last Picture (Recall this 10/14/23 field) -Photo Taken Yes -Epithelialization None Present -Tunneling Position (O'clock) 12 -Tunneling Distance (cm) 1.2 -Exudate Amt Large -Exudate Type Purulent -Wound Margin Distinct, Outline Attached -Granulation Amt Small (1-33%) Large (67-100%) -Granulation Quality Red Red -Slough/Fibrin Yes -Necrosis Amt Small (1-33%) Small (1-33%) -Necrotic Tissue Type Adherent Slough Adherent Slough -Structure Exposed N/A -Texture (Ritika-wound Skin Appearance) Scarring Assessed, Scarring -Moisture (Ritika-wound Skin Appearance) No Abnormality Assessed -Color (Ritika-wound Skin Appearance) No Abnormality Assessed -Temperature (Ritika-wound Skin No Abnormality No Abnormality Appearance) (Pt Warm) (Pt Warm) -Tenderness on Palpation (Ritika-wound No No Skin Appearance) -Ulcer Cleansing Rinsed/ Irrigated with Saline -Foul Odor after Cleansing No No -Anesthetic Used 4% Lidocaine 5% Lidocaine Solution Gel WC - Nurse 2 - General Ulcer CM Notes Start: 09/30/23 10:40 Freq: Status: Active Protocol: Activity Type Activity Date Activity User E-sign Co-sign Detail Recorded Client Recorded Date Recorded By Document 09/30/23 11:05 Desktop 09/30/23 11:11 Document 10/14/23 11:01 Desktop 10/14/23 11:08 09/30/23 10/14/23 11:05 11:01 Wound Center Nurse 2 #2- CERVICAL INFERIOR WOUND (SURGICAL) -Time 11:05 11:01 -Correct Patient Yes Yes -Correct Side, Site, Position Yes Yes -Correct Procedure Yes Yes -Procedure Performed Yes Yes -Type of Procedure Debridement Debridement -Clinical Debridement Subcutaneous Subcutaneous -Tissue Removed Subcutaneous Subcutaneous -Post Debridement (cm) - Length 0.7 0.6 -Post Debridement (cm) - Width 1 0.6 -Post Debridement (cm) - Depth 2 2.0 -Total Square (Post) (cm) 0.7 0.36 -Area of Debridement (cm) - Length 0.7 0.6 -Area of Debridement (cm) - Width 1 0.6 -Total Square (Area) (cm) 0.7 0.36 -Tunneling No No -Undermining/Tunneling No No -Circular Undermining No No -Wound/Ulcer Outcome Not Healed Not Healed -Ulcer Cleansing Rinsed/ Rinsed/ Irrigated with Irrigated with Saline Saline -Foul Odor after Cleansing No No -Bioengineered Tissue No No -Bleeding Controlled with Pressure Pressure -Treatment Response Procedure Procedure Tolerated Well Tolerated Well -Debridement - Subq, 1st 20sq cm No Yes #1- SUPERIOR CERIVICAL SPINE (SURGICAL) -Time 11:06 11:01 -Correct Patient Yes Yes -Correct Side, Site, Position Yes Yes -Correct Procedure Yes Yes -Procedure Performed Yes Yes -Type of Procedure Debridement Debridement -Clinical Debridement Subcutaneous Subcutaneous -Tissue Removed Subcutaneous Subcutaneous -Post Debridement (cm) - Length 1.1 0.7 -Post Debridement (cm) - Width 0.5 0.4 -Post Debridement (cm) - Depth 1.5 2.0 -Total Square (Post) (cm) 0.55 0.28 -Area of Debridement (cm) - Length 1.1 0.7 -Area of Debridement (cm) - Width 0.5 0.4 -Total Square (Area) (cm) 0.55 0.28 -Tunneling No No -Undermining/Tunneling No No -Circular Undermining No No -Wound/Ulcer Outcome Not Healed Not Healed -Ulcer Cleansing Rinsed/ Rinsed/ Irrigated with Irrigated with Saline Saline -Foul Odor after Cleansing No No -Bioengineered Tissue No No -Bleeding Controlled with Pressure Pressure -Treatment Response Procedure Procedure Tolerated Well Tolerated Well -Debridement - Subq, 1st 20sq cm Yes No Pain Scale: 0-10 Numeric Is Patient Pain Free? Yes Yes WC - Nurse 3 - General Ulcer D/C NN Start: 09/30/23 10:40 Freq: Status: Active Protocol: Activity Type Activity Date Activity User E-sign Co-sign Detail Recorded Client Recorded Date Recorded By Document 09/30/23 11:12 Desktop 09/30/23 11:14 Document 10/14/23 11:56 RB [id number] 10/14/23 11:58 RB 09/30/23 10/14/23 11:12 11:56 Wound Care Center Nurse 3 #2- CERVICAL INFERIOR WOUND (SURGICAL) -Ulcer Cleansing Not Cleansed Rinsed/ Irrigated with Saline -Foul Odor after Cleansing No -Negative Pressure Wound Therapy N/A -Primary Dressing Applied Aquacel Extra, Aquacel Extra, Mepilex Border Mepilex Border -Aquacel Extra 1 1 -Mepilex Border 1 1 #1- SUPERIOR CERIVICAL SPINE (SURGICAL) -Ulcer Cleansing Not Cleansed -Foul Odor after Cleansing No -Negative Pressure Wound Therapy N/A -Primary Dressing Applied Other -Other Dressing used remainder aquacel extra, of aquacel mepilex border extra from other wound Treatment Response Procedure Tolerated Well Pain Scale: 0-10 Numeric Is Patient Pain Free? Yes Yes Teaching: Wound Center Dressing changes -Person Taught Patient -Teaching Method Discussion -Response to teaching Verbalize understanding WC - Visit Discharge Discharge Condition Stable Stable Ambulatory Status Wheelchair Wheelchair Transportation Private [facility] Medication Reconcilliation completed & Yes No provided to patient/care provider Clinical Summary of Care Provided Yes Yes Additional Wound Wound debrided: Upper back (inferior Cervical) Type of Debridement: Excisional debridement Anesthesia Used: 5% Lidocaine Gel Depth: Down to and including healthy tissue and in the subcutaneous layer Percentage of wound debrided: 100 Instrument Used: 5mm curette Tissue Removed: Slough and devitalized tissue Severity: Fat Layer Exposed Amount of bleeding with debridement: Mild Bleeding Controlled with: Pressure Patient tolerated procedure: Patient tolerated procedure well Assessment/Plan Assessment/Plan (1) Non-healing surgical wound: CODE(S): T81.89XA - Other complications of procedures, not elsewhere classified, initial encounter QUALIFIERS: Encounter type: initial encounter Qualified Code(s): T81.89XA - Other complications of procedures, not elsewhere classified, initial encounter (2) Multiple myeloma: CODE(S): C90.00 - Multiple myeloma not having achieved remission (3) History of radiation therapy: CODE(S): Z92.3 - Personal history of irradiation (4) Paraplegia: CODE(S): G82.20 - Paraplegia, unspecified PLAN: Plan Debridement done as documented above, procedure was well-tolerated. No new concerns reported at this time. Some improvement noted. As above, had an appointment with his operating surgeon last week and HBO was also recommended but he still not open to it. For now, continue Aquacel extra, change daily to twice daily depending on drainage. Prealbumin slightly low, continue Ariel twice daily. Vitamin C, D and zinc also recommended, he voiced understanding. His questions were answered and he was advised to let us know if he has any further questions or concerns. Follow-up in 2 weeks per patient preference. This note was generated with [employer] software. It may contain incorrectwords, spelling, and punctuation that were not noted in checking the note beforesigning. 10/14/23 1324 <Electronically signed by Te Shah MD> Cosigner Signature (if applicable): CC: ~ Signed [facility] Work Phone: [phone] 187-713201-04-2024 Progress note Author Te Shah [facility] September 30, 2023 11:34am Note Date/Time September 30, 2023 11 :31am [facility] [address] [place] [id number] Progress Note - Wound Care 09/30/23 1129 MR#: [id number] Acct: [id number] Name: ARMAND BARRON Rep #:[id number] 1 : 1955 68 From: Te chavez MD PCP: Dr. Iraida Balderas MD Status:[facility] Location: History of Present Illness Date of Service: 09/30/23 Chief Complaint: Non healing surgical wound History of Wound: Mr. Barron is a 68-year-old who was referred to this facility due to nonhealing surgical wound. Had surgery in October due to multiple myeloma. Surgery was uneventful with most of the surgical site healed but 2 areas which have not healed. He states that he has had wound dressings down to the area including a wound VAC. Not particularly sure what type of dressings hehas had. He is not sure how much drainage he is getting from the area either. Currently resides in an assisted living facility. Still follows up closely withoncology and is on monthly chemotherapy regimen and dexamethasone. Had also hadradiation therapy to the area. He feels well otherwise. States that he eats good. Progress of Wound: No new concerns at this time. He states that he is taking antibiotics as prescribed. Has an appointment with his surgeon next week. Objective Data Objective Data Vital Signs: Vital Signs Temp Pulse Resp BP 98 F 57 L 18 96/49 L 09/30/23 10:41 09/30/23 10:41 09/30/23 10:41 09/30/23 10:41 Weight: 165 lb Body Mass Index (BMI) 27.4 Charges/Coding Procedures Integumentary 111xxx-113xx: 10786 Marley subq tissue 20 sq cm/< Physical Exam Const alert, oriented x3 and no apparent distress General Appearance: cooperative HEENT normocephalic and head/scalp atraumatic Face and Sinus: normal facial exam Eyes EOMs intact bilaterally General Eye: normal appearance of both eyes Neck full ROM General: normal visual inspection Resp normal respiratory effort Effort and Inspection: able to speak in complete sentences Skin Wounds: wounds noted Neuro oriented x3 and CN's II-XII intact bilaterally Psych mental status grossly normal, thought process normal, cooperative, affect normaland speech normal Debridement Note Debridement Note Wound debrided: Upper back (superior cervical) Type of Debridement: Excisional debridement Anesthesia Used: 5% Lidocaine Gel Depth: Down to and including healthy tissue and in the subcutaneous layer Percentage of wound debrided: 100 Instrument Used: 5mm curette Tissue Removed: Slough and devitalized tissue Severity: Fat Layer Exposed Bleeding Controlled with: Pressure and Compression and gauze Patient tolerated procedure: Patient tolerated procedure well Post-Debridement Measurements and Additional Note: Post-Debridement Measurements/Treatment - Nurse 1 - General Ulcer Assessment Start: 09/30/23 10:40 Freq: Status: Active Protocol: [email or web address].[email or web address] Activity Type Activity Date Activity User E-sign Co-sign Detail Recorded Client Recorded Date Recorded By Document 09/30/23 10:41 DL Desktop 09/30/23 10:49 DL 09/30/23 10:41 - Today's Visit Information Type of service Follow-up Visit (Physician/LOCK TENDER ) Arrival Mode Wheelchair Transfer Assistance None Patient Identification Verified (Name & Yes ) Patient Requires Transmission-Based No Precautions Height and Weight Body Mass Index (BMI) 27.4 BMI Classification Overweight Vital Signs Temperature (97.8 F-99.1 F) 98 F Temperature Source Temporal Pulse Rate (60-100) 57 L Pulse Location Monitor Respiratory Rate (12-18) 18 Respiratory rate source Observation Blood Pressure (90/60-120/80) 96/49 L Blood Pressure Mean (mm Hg) 64 Source Monitor History Since Last Visit- (Skip if this is Patient's initial visit) Have you changed medications since your No last visit? Any new allergies or adverse reactions No Had a fall/change in ADL's that may No increase risk of falls Signs or symptoms of abuse and/or No neglect since last visit Have you been in the hospital since your No last visit? Has dressing in place as prescribed Yes Has compression in place as prescribed N/A Has offloadiing in place as prescribed N/A Experienced any changes in pain level or No management Pain Scale: 0-10 Numeric Is Patient Pain Free? Yes WC - Nurse 1 - General Ulcer Measurement Start: 09/30/23 10:40 Freq: Status: Active Protocol: Activity Type Activity Date Activity User E-sign Co-sign Detail Recorded Client Recorded Date Recorded By Document 09/30/23 10:41 DL Desktop 09/30/23 10:49 DL 09/30/23 10:41 Wound Center Nurse 1 #2- CERVICAL INFERIOR WOUND (SURGICAL) -Current Size (cm) - Length 0.7 -Current Size (cm) - Width 0.8 -Current Size (cm) - Depth 2 -Total Square Cm 0.56 -Exudate Amt Medium -Exudate Type Yellow/Green -Wound Margin Distinct, Outline Attached -Granulation Amt Small (1-33%) -Granulation Quality Red -Necrosis Amt Small (1-33%) -Necrotic Tissue Type Adherent Slough -Structure Exposed N/A -Texture (Ritika-wound Skin Appearance) Scarring -Moisture (Ritika-wound Skin Appearance) No Abnormality -Color (Ritika-wound Skin Appearance) No Abnormality -Temperature (Ritika-wound Skin No Abnormality Appearance) (Pt Warm) -Tenderness on Palpation (Ritika-wound No Skin Appearance) -Ulcer Cleansing Rinsed/ Irrigated with Saline -Foul Odor after Cleansing No -Anesthetic Used 5% Lidocaine Gel #1- SUPERIOR CERIVICAL SPINE (SURGICAL) -Current Size (cm) - Length 0.8 -Current Size (cm) - Width 0.5 -Current Size (cm) - Depth 0.7 -Total Square Cm 0.40 -Tunneling Position (O'clock) 12 -Tunneling Distance (cm) 1.2 -Granulation Amt Small (1-33%) -Granulation Quality Red -Necrosis Amt Small (1-33%) -Necrotic Tissue Type Adherent Slough -Structure Exposed N/A -Texture (Ritika-wound Skin Appearance) Scarring -Moisture (Ritika-wound Skin Appearance) No Abnormality -Color (Ritika-wound Skin Appearance) No Abnormality -Temperature (Ritika-wound Skin No Abnormality Appearance) (Pt Warm) -Tenderness on Palpation (Ritika-wound No Skin Appearance) -Foul Odor after Cleansing No -Anesthetic Used 4% Lidocaine Solution WC - Nurse 2 - General Ulcer CM Notes Start: 09/30/23 10:40 Freq: Status: Active Protocol: Activity Type Activity Date Activity User E-sign Co-sign Detail Recorded Client Recorded Date Recorded By Document 09/30/23 11:05 Desktop 09/30/23 11:11 09/30/23 11:05 Wound Center Nurse 2 #2- CERVICAL INFERIOR WOUND (SURGICAL) -Time 11:05 -Correct Patient Yes -Correct Side, Site, Position Yes -Correct Procedure Yes -Procedure Performed Yes -Type of Procedure Debridement -Clinical Debridement Subcutaneous -Tissue Removed Subcutaneous -Post Debridement (cm) - Length 0.7 -Post Debridement (cm) - Width 1 -Post Debridement (cm) - Depth 2 -Total Square (Post) (cm) 0.7 -Area of Debridement (cm) - Length 0.7 -Area of Debridement (cm) - Width 1 -Total Square (Area) (cm) 0.7 -Tunneling No -Undermining/Tunneling No -Circular Undermining No -Wound/Ulcer Outcome Not Healed -Ulcer Cleansing Rinsed/ Irrigated with Saline -Foul Odor after Cleansing No -Bioengineered Tissue No -Bleeding Controlled with Pressure -Treatment Response Procedure Tolerated Well -Debridement - Subq, 1st 20sq cm No #1- SUPERIOR CERIVICAL SPINE (SURGICAL) -Time 11:06 -Correct Patient Yes -Correct Side, Site, Position Yes -Correct Procedure Yes -Procedure Performed Yes -Type of Procedure Debridement -Clinical Debridement Subcutaneous -Tissue Removed Subcutaneous -Post Debridement (cm) - Length 1.1 -Post Debridement (cm) - Width 0.5 -Post Debridement (cm) - Depth 1.5 -Total Square (Post) (cm) 0.55 -Area of Debridement (cm) - Length 1.1 -Area of Debridement (cm) - Width 0.5 -Total Square (Area) (cm) 0.55 -Tunneling No -Undermining/Tunneling No -Circular Undermining No -Wound/Ulcer Outcome Not Healed -Ulcer Cleansing Rinsed/ Irrigated with Saline -Foul Odor after Cleansing No -Bioengineered Tissue No -Bleeding Controlled with Pressure -Treatment Response Procedure Tolerated Well -Debridement - Subq, 1st 20sq cm Yes Pain Scale: 0-10 Numeric Is Patient Pain Free? Yes - Nurse 3 - General Ulcer D/C NN Start: 09/30/23 10:40 Freq: Status: Active Protocol: Activity Type Activity Date Activity User E-sign Co-sign Detail Recorded Client Recorded Date Recorded By Document 09/30/23 11:12 GM Desktop 09/30/23 11:14 09/30/23 11:12 Wound Care Center Nurse 3 #2- CERVICAL INFERIOR WOUND (SURGICAL) -Ulcer Cleansing Not Cleansed -Foul Odor after Cleansing No -Negative Pressure Wound Therapy N/A -Primary Dressing Applied Aquacel Extra, Mepilex Border -Aquacel Extra 1 -Mepilex Border 1 #1- SUPERIOR CERIVICAL SPINE (SURGICAL) -Ulcer Cleansing Not Cleansed -Foul Odor after Cleansing No -Negative Pressure Wound Therapy N/A -Primary Dressing Applied Other -Other Dressing used remainder of aquacel extra from other wound Pain Scale: 0-10 Numeric Is Patient Pain Free? Yes Teaching: Wound Center Dressing changes -Person Taught Patient -Teaching Method Discussion -Response to teaching Verbalize understanding WC - Visit Discharge Discharge Condition Stable Ambulatory Status Wheelchair Transportation Private Auto Medication Reconcilliation completed & Yes provided to patient/care provider Clinical Summary of Care Provided Yes Additional Wound Wound debrided: Upper back (inferior Cervical) Type of Debridement: Excisional debridement Anesthesia Used: 5% Lidocaine Gel Depth: Down to and including healthy tissue and in the subcutaneous layer Percentage of wound debrided: 100 Instrument Used: 5mm curette Tissue Removed: Slough and devitalized tissue Severity: Fat Layer Exposed Amount of bleeding with debridement: Mild Bleeding Controlled with: Pressure Patient tolerated procedure: Patient tolerated procedure well Assessment/Plan Assessment/Plan (1) Non-healing surgical wound: CODE(S): T81.89XA - Other complications of procedures, not elsewhere classified, initial encounter QUALIFIERS: Encounter type: initial encounter Qualified Code(s): T81.89XA - Other complications of procedures, not elsewhere classified, initial encounter (2) Multiple myeloma: CODE(S): C90.00 - Multiple myeloma not having achieved remission (3) History of radiation therapy: CODE(S): Z92.3 - Personal history of irradiation (4) Paraplegia: CODE(S): G82.20 - Paraplegia, unspecified PLAN: Plan Debridement done as documented above, procedure was well-tolerated. No new concerns reported at this time. Significantly less slough with good granulationnoted. Minimal improvement in size. He has an appointment with his operating surgeon on the 06 of October. Due to concern for radiation injury, he would maria isabel good candidate for HBO therapy and possibly, flap closure. He however is not open to hyperbaric oxygen treatments. For now, continue Aquacel extra, change daily to twice daily depending on drainage. Prealbumin slightly low, continue Ariel twice daily. Vitamin C, D and zinc also recommended, he voiced understanding. His questions were answered and he was advised to let us know if he has any further questions or concerns. Follow-up in 2 weeks per patient preference. This note was generated with [employer] dictation software. It may contain incorrectwords, spelling, and punctuation that were not noted in checking the note beforesigning. 09/30/23 1134 <Electronically signed by Te Shah MD> Cosigner Signature (if applicable): CC: ~ Signed [facility] Work Phone: 1([phone] 679-270412-13-2023 History of Present illness Narrative* Gisel Wolf MD - 09/08/2023 11:00 AM EST Images from the original note were not included. Attending physician: Gisel Wolf MD Referring physician: Jenn Kim Dr, MD Angela M Collins My recommendations will become communicated to the referring physician via electronic medical chartor through US mail. CHIEF COMPLAINT: [facility] MM HISTORY OF PRESENT ILLNESS: Armand Barron is a 68 y.o. male who presents to the Plasma cell dyscrasia clinic today at the [facility] for 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 Please allow me to review the patient's oncological history to date: He had been having worsening pain over the course of a year. He presented to the hospital on the 11/10/2022 with progressive weakness and loss of sensation in bilateral legs. This has been ongoing for about 2 weeks. MRI of spine showed compression fracture at T2 and T7 levels as well as the presence of a substantial epidural tumor at T7 with cord compression. There were also multiple bone lesions throughout the spine and pelvis. CT chest abdomen and pelvis on 11/10/2022: Multiple lytic lesions throughout the skeleton, mildly enlarged hilar and mediastinal lymph nodes but no solid tumor or masses. 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 Radiation Oncology was consulted and he underwent MOPP radiation to that area. Blood work done on 11/15/2022: WBC 11.7, hemoglobin 10.7, platelet 204, creatinine 0.64, calcium 8.6 Repeat blood work on 11/13/2022: Centerview 20.8, lambda 0.86, kappa/lambda ratio 24.3 No bone marrow biopsy done. Patient had been doing therapy at [facility] in [place] and staff noted that his incision began looking erythematous, with copious drainage. He was sent back to [facility] for evaluation by neurosurgery. Went to IR on 12/02 for drain placement and fluid sent for culture, no growth. He remained clinically very stable. Patient discharged to return to [facility] in [place] The patient received a course of 20 Dan delivered in 5 fractions to the thoracic spine encompassing T2-T7 (T1-T8). He was started on DRD on 03/08/23. There was delays due to delayed wound healing. INTERVAL HISTORY: The patient is here today for a visit. He is accompanied to the visit by his sister. Overall he thinks he is doing well. Since his last visit, he moved to [place] and now follows with Dr Perez. He feels the weakness in his legs are getting better. He is now walking more. 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 He ambulate with assist. He is due to see neurosurgery in October. He continues to endorse pain in his his shoulder- he thinks this is improved. He also endorses bloating in stomach. He denies diarrhea. He denies BRBPR or melena. He was diagnosed with DVT in May and is on eliquis. He is now every 4 weeks daratumumab- lastdose was on last week. He is also on 15 mg revlimid. He still has a urinary catheter. He denies hematuria. He has not had infectious complications sincehis last visit. REVIEW OF SYSTEMS: Constitutional: (-) fever, (-) chills, (-) night sweats, (-) weight loss, (-) fatigue Eyes: (-) visual changes, (-) diplopia, (-) redness ENMT: (-) sinus congestion, (-) rhinorrhea, (-) dysphagia Cardio: (-) chest pain, (-) shortness of breath, (-) orthopnea, (-) PND Pulmonary: (-) cough, (-) sputum production, (-) hemoptysis GI: (-) abdominal pain, (-) nausea, (-) diarrhea, (-) constipation, : (-) dysuria, (-) hematuria, (-) frequency Musc: (-) joint pain, (-) muscle pain, (-) joint redness Skin: (-) Rash, (-) Pruritus Neuro: see hpi Psychiatric: (-) depression Endo: (-) heat intolerance, (-) cold intolerance, (-) polyuria, (-) polyphagia Heme: (-) lymph nodes, (-) bruising, (-) easy bleeding Allergic/Immun: (-) frequent infections (-) seasonal allergies Current Outpatient Medications: acetaminophen 500 MG tablet, Take 2 tablets by mouth Every 6 hours as needed., Disp: , Rfl: amLODIPine 10 MG tablet, Take by mouth., Disp: , Rfl: Atorvastatin 10 MG tablet, Take by mouth., Disp: , Rfl: Cholecalciferol 1.25 MG (50861 UT) capsule, Take by mouth., Disp: , Rfl: Doxycycline monohydrate 100 MG capsule, Take 1 capsule by mouth Twice daily., Disp: , Rfl: Eliquis 5 MG tablet, Take by mouth every 12 hours., Disp: , Rfl: Levothyroxine 88 MCG tablet, Take 1 tablet by mouth daily., Disp: 30 tablet, Rfl: 11 Metoprolol 50 MG tab regular release, Take 1 tablet by mouth 2 times daily., Disp: , Rfl: omeprazole [address] capsule, TAKE 1 CAPSULE BY MOUTH 1 TIME EACH DAY. DO NOT CRUSH OR CHEW., Disp: , Rfl: oxycodone 5 MG capsule, Take 1 capsule by mouth Every 6 hours as needed., Disp: , Rfl: PEG 3350 17 g Pack, MIX 1 PACKET IN 4-6OZ OF BEVERAGE AND DRINK BY MOUTH EVERY DAY FOR 3 DAYS, Disp: , Rfl: Revlimid 15 MG capsule, , Disp: , Rfl: traZODone 50 MG tablet, Take 1 tablet by mouth Every morning as needed., Disp: , Rfl: PMH: hypertension, hyperlipidemia, hypothyroidism, GERD, and recent diagnosis of multiple myeloma with T2 and T7 pathological fractures with epidural tumor and subsequent cord compression. He underwent thoracic decompression and removal of T2 and T7 epidural tumor by laminectomy, facetectomy, and foraminotomy as well as posterior thoracic fusion of C7-T4 by screw fixation on 11/11/[address] Tao PSH : epidural tumor and subsequent cord compression. 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 EOMI ENMT: Neck supple. No JVD LYMPHATIC: No cervical, axillary, or supraclavicular adenopathy. RESP: Clear to auscultation bilaterally posteriorly, no wheezes. No rhonchi CARDIO: Regular rate and rhythm. No rubs murmurs or gallops, ABD: Abdomen soft, non-tender. No masses or organomegaly. BACK: No vertebral tenderness. Full Range of motion EXTREMITIES: No significant edema. NEURO: Nonfocal. CN II-XII WNL,decreased strength in bilateral LEs, bilateral plantars downgoing. LABS: I performed an extensive review of the patient's outside records which include but are not limited to records, faxed Documents and when indicated review of records care everywhere. The pertinent laboratory findings are summarized below. I have reviewed all the laboratory tests completed for today's clinic visit. Blood work 11/10/2022: SPEP presence of small M protein, kappa 137.4, lambda 1.2, kappa/lambda ratio 114.5, IgA 180, IgM 23, IgG 1132 Results for orders placed or performed in visit on 09/08/23 COMPREHENSIVE METABOLIC PANEL Result Value Ref Range Sodium 139 135 - 145 mmol/L Potassium 3.8 3.5 - 5.0 mmol/L Chloride 103 98 - 108 mmol/L BUN 15 7 - 25 mg/dL Creatinine 0.74 0.70 - 1.30 mg/dL Glucose 75 70 - 99 mg/dL Bilirubin Total 0.4 <1.5 mg/dL Albumin 3.6 3.5 - 5.0 g/dL Total Protein 6.4 6.4 - 8.3 g/dL AST 11 10 - 39 U/L ALP 49 32 - 126 U/L Calcium 9.0 8.6 - 10.5 mg/dL CO2 32 (H) 21 - 31 mmol/L ALT 15 10 - 52 U/L Bun/Crea Ratio 20 Osmolality (Calculated) 290 278 - 305 mOsm/kg Anion Gap 8 7 - 17 mmol/L eGFR, CKD-EPI, Male >90 >=60 mL/min/1.73m2 CBC AND ELECTRONIC DIFF Result Value Ref Range WBC Count 5.40 3.73 - 10.10 K/uL RBC Count 4.16 (L) 4.38 - 5.83 M/uL Hemoglobin 11.4 (L) 13.4 - 16.8 g/dL Hematocrit 37.7 (L) 39.6 - 48.8 % Mean Cell Volume 90.6 79.0 - 94.5 fL Mean Cell Hgb 27.4 26.1 - 33.3 pg Mean Cell Hgb Conc 30.2 (L) 31.9 - 36.5 g/dL RBC Distribution 16.8 (H) 10.9 - 14.3 % Platelet Count 236 146 - 337 K/uL Mean Platelet Volume 10.8 8.7 - 12.3 fL DIFF STATUS Electronic Differential Segs + Bands Auto 76.3 % Immature Grans % 0.6 % Lymphocyte % Auto 8.1 % Monocyte % Auto 10.4 % Eosinophil % Auto 3.5 % Basophil % Auto 1.1 % Nucleated RBC 0.0 <=0.2 /100 WBC Segs + Bands,Absolute Auto 4.12 1.57 - 6.19 K/uL Immature Grans Absolute <0.04 <=0.07 K/uL Abs Lymph Auto 0.44 (L) 0.83 - 3.57 K/uL Abs [place] Auto 0.56 0.24 - 0.93 K/uL Abs Eos Auto 0.19 0.00 - 0.48 K/uL Abs Baso Auto 0.06 0.00 - 0.09 K/uL IMAGING: MRI spine 12/02/22 At the T7 level, there has been progression of a severe compression fracture and retropulsion of bony fragments into the spinal canal. Posterior decompression has been performed at this level. There is compression of the cord at this level with increased cord signal intensity as above. The overall extent of cord compression at this level is decreased compared to the prior postoperative examination from 11/10/2022. Resection of the previously noted mass at the T2 level. There is a small residual enhancing tissue in the left T2-T3 neural foramen, which may represent granulation tissue or an element of residual mass. Cord compression in this area has improved. Enhancing masses in the T10 and T11 vertebral bodies, not significantly changed. In the posterior paraspinal soft tissues, there is a large fluid collection at the midline and slightly right of midline, which extends from approximately the C5 level to the T8 level. There is some extension of the fluid collection to the laminectomy defects at T2 and T7. Some peripheral enhancement is present. This may represent a postoperative seroma, however, sterility is not confirmed. Clinical correlation is CT C spine 12/01/22 1. Interval progression of severe pathologic fracture of the T7 vertebral body now with vertebral plana, extensive destructive changes including the left-sided pedicle. Interval development of 5 mm of retropulsion of the bone fragment into the spinal canal to the right of midline now with mild compression of the right thoracic spinal cord not seen on the prior exam with 6 mm midline AP thecal sac diameter. 2. Postoperative changes of posterior instrumented fixation from C7 to T4 as noted on 11/11/2022 bridging pathologic fracture at the T2 level. New superficial fluid collection in the posterior soft tissues overlying the surgical bed without communication with the thecal sac likely a postoperative se leonard measuring 6 x 11 x 7 cm, this is unlikely to represent an abscess. PATHOLOGY: [id number] (11/11/2022) A. Spinal epidural mass: Centerview-restricted plasma cell neoplasm Bone marrow 01/29/23 (A-C) Bone marrow specimen [biopsy, clot section, aspirate smear, peripheral blood smear]: -- Involvement by plasma cell neoplasm. Note: The bone marrow is mildly hypercellular (50% cellularity) and contains a kappa-restricted plasma cell neoplasm in a background of preserved trilineage hematopoiesis. Plasma cells comprise approximately 25% of marrow cellularity. Chromosome analysis as well as myeloma FISH studies will be performed for further evaluation. Cytogenetic analysis revealed a Normal karyotype. Myeloma Profile [Interphase FISH]: Negative for loss of TP53, gain/amplification of 1q, del(1p), -13/del(13q), IGH rearrangements, del(17p), +5, +9, +11, +15. ASSESSMENT AND PLAN: # KLC MM He presented to the hospital on the 11/10/2022 with progressive weakness and loss of sensation in bilateral legs. This has been ongoing for about 2 weeks. MRI of spine showed compression fracture at T2 and T7 levels as well as the presence of a substantial epidural tumor at T7 with cord compression. There were also multiple bone lesions throughout the spine and pelvis. CT chest abdomen and pelvis on 11/10/2022: Multiple lytic lesions throughout the skeleton, mildly enlarged hilar and mediastinal lymph nodes but no solid tumor or masses. 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 Blood work done on 11/15/2022: WBC 11.7, hemoglobin 10.7, platelet 204, creatinine 0.64, calcium 8.6 Repeat blood work on 11/13/2022: Centerview 20.8, lambda 0.86, kappa/lambda ratio 24.3 BM Bx: 25% PC The patient received a course of 20 Dan delivered in 5 fractions to the thoracic spine encompassing T2-T7 (T1-T8). I had a detailed discussion with Armand Barron about the pathophysiology as well as treatment options for multiple myeloma. The patient understands that this is an essence an incurable disease and treatment is geared towards prolonging survival as well as improving quality of life. We discussed the current set of care would be induction chemotherapy with a multi drug regimen followed by consideration of autologous stem cell transplant in selected patients. I do not think he is a transplant candidate at this time. I had recommended induction with therapy with combination of daratumumab, lenalidomide and dexamethasone as per the SON trial. There were delays due delayed wound healing We will check his plasma cell markers. I still do not think he is a transplant candidate and would recommend he continuing on the same regimen of DRD for at least 6 cycles. We will check MM markers. As long as his markers are favorable, it would be ok to stop lenalidomide. I agree with continuing maintenance daratumumab every 28 days. # Myeloma bone disease: - Dental evaluation - I would recommend xgeva to reduce the risk of skeletal related events, decrease bone pain- q month during induction followed by q3 months for total 2 years - Calcium (1200 mg) and vitamin D (800-1000 units) daily # Secondary immunodeficiency: - We recommend acyclovir 400 mg BID (or equivalent) for HSV/VZV prophylaxis - Immunizations: Influenza vaccinations yearly # h/o VTE:- continue eliquis # other chronic medical problems: - he will follow up with his other providers. # RTC 6 months Gisel Wolf MD [employer] Hematology 09/08/23 Pager # [phone] This note was generated with the use of voice dictation software. Errors may be present despite attempts at proofreading. Please page/call with any questions. [facility] Instructions* Patient Instructions* Rayna Gregg RN - 09/08/2023 11:00 AM EST Medical team Doctor: Dr. Gisel Wolf Primary RN: Rayna LOPEZ Contact numbers Clinic phone: [phone] Clinic fax: [phone] Plan for today - follow up with Dr conrad - continue daratumumab - if your markers look good, we could stop revlimid - follow up in 6 months Medical team Doctor: Gisel Wolf FREDI: Gissel Pepper Primary RN: Rayna Gregg, RN and Susana Winters RN Contact numbers Clinic phone: [phone] Clinic fax: [phone] Medication refills Please allow 1 week for chemotherapy (e.g. Lenalidomide [Revlimid], Pomalidomide [Pomalyst], Cyclophosphamide [Cytoxan]) and pain medication refills (e.g. Morphine, methadone, etc.) MEDICAL RECORDS The Release of Information (MARTINEZ) area is staffed from 8:00 a.m. to 7:00 p.m. and is available for walk in requests from 8:00 a.m. to 4:30 p.m. [facility] is responsible for answering requests for copies of medical records from various requestors such as insurance companies, attorneys, hospitals and patients. Please note it can take up to 2 weeks to complete your request. [phone]; [phone] (fax). Paperwork Please allow 2 weeks to complete disability, FMLA, and insurance paperwork Education We have created a series of patient-oriented talks to discuss what is myeloma, how to follow myeloma treatment response, smoldering myeloma, what is a transplant and who should get it, what is maintenance therapy, and one talk about the [place] Myeloma Initiative. http://www.mmore.org/ImagineMMORE/2014 /index.html, Another nice resource is available from the National Comprehensive Cancer Network (NCCN) at http://www.nccn.org/patients/guidelines/cancers.aspx#myeloma. [facility] is a secure way to get access to your labs online. Once you're online, you may need to send a message to the office to release results so that you can review the results of your blood tests. For non-emergent concerns, please send us a [employer] message but please do your best to describe your issue fully (if it's a symptom for instance, tell us how long you've had it, what makes it better or worse, what you've done for it already) and one of our nurses or nurse practitioners will respond in consultation with me as needed. For questions or concerns regarding [employer] access or technical dificulties, please call [phone] or toll free at . Health maintenance - We recommend all patients check in with a dentist every 6 months ideally, every 12 months as second best. - Vaccinations are safe and effective prevention tools that stimulate your immune system. They decrease your risk of infection. Flu shots are recommended every year for everyone, and we recommend additional vaccines for myeloma patients as this cancer weakens the immune system. documented [facility] Progress note Author arun Shah [facility] August 26, 2023 11:41am Note Date/Time August 26, 2023 11:41am [facility] [address] [place] [address] Progress Note - Wound Care 08/26/23 1136 MR#: [id number] Acct: [id number] Name: ARMAND BARRON LEAH Rep #:[id number] 2 : 1955 68 From: Te chavez MD PCP: Dr. Iraida Balderas MD Status:REG R Location: History of Present Illness Date of Service: 08/26/23 Chief Complaint: Non healing surgical wound History of Wound: Mr. Barron is a 68-year-old who was referred to this facility due to nonhealing surgical wound. Had surgery in October due to multiple myeloma. Surgery was uneventful with most of the surgical site healed but 2 areas which have not healed. He states that he has had wound dressings down to the area including a wound VAC. Not particularly sure what type of dressings hehas had. He is not sure how much drainage he is getting from the area either. Currently resides in an assisted living facility. Still follows up closely withoncology and is on monthly chemotherapy regimen and dexamethasone. Had also hadradiation therapy to the area. He feels well otherwise. States that he eats good. Progress of Wound: No new concerns at this time. Largely stable. Objective Data Objective Data Vital Signs: Vital Signs Temp Pulse Resp BP O2 Del Method 97.2 F L 55 L 18 92/40 L Room Air 08/26/23 10:32 08/12/23 09:02 08/26/23 10:32 08/12/23 09:02 08/12/23 09:02 Oxygen Delivery Method Room Air Weight: 165 lb Body Mass Index (BMI) 27.4 Charges/Coding Procedures Integumentary 111xxx-113xx: [id number] Marley subq tissue 20 sq cm/< Physical Exam Const alert, oriented x3 and no apparent distress General Appearance: cooperative, well kempt and well developed HEENT normocephalic and head/scalp atraumatic Face and Sinus: normal facial exam Eyes EOMs intact bilaterally General Eye: normal appearance of both eyes Neck full ROM General: normal visual inspection Resp normal respiratory effort, normal air movement and clear to auscultation bilaterally Effort and Inspection: able to speak in complete sentences Extremity General Extremity: edema Skin Wounds: wounds noted Neuro oriented x3 and CN's II-XII intact bilaterally Psych mental status grossly normal, thought process normal, cooperative, affect normaland speech normal Debridement Note Debridement Note Post-Debridement Measurements and Additional Note: Post-Debridement Measurements/Treatment - Nurse 1 - General Ulcer Assessment Start: 08/12/23 09:02 Freq: Status: Active Protocol: [email or web address] Activity Type Activity Date Activity User E-sign Co-sign Detail Recorded Client Recorded Date Recorded By Document 08/12/23 09:02 [facility] Desktop 08/12/23 09:17 [facility] Document 08/26/23 10:32 Laptop 08/26/23 10:47 08/12/23 08/26/23 09:02 10:32 - Today's Visit Information Type of service Follow-up Visit Follow-up Visit (Physician/LOCK TENDER (Physician/LOCK TENDER ) ) Arrival Mode Wheelchair Wheelchair Transfer Assistance None Patient Identification Verified (Name & Yes Yes ) Patient Requires Transmission-Based No No Precautions Height and Weight Height 5 ft 5 in Weight 165 lb Weight in Pounds 165.0 lbs Body Mass Index (BMI) 27.4 27.4 BMI Classification Overweight Overweight BSA - Sean 1.82 Vital Signs Temperature (97.8 F-99.1 F) 97.6 F L 97.2 F L Temperature Source Temporal Temporal Pulse Rate (60-100) 55 L Pulse Location Monitor Respiratory Rate (12-18) 16 18 Respiratory rate source Observation Observation Oxygen Delivery Method Room Air Blood Pressure (90/60-120/80) 92/40 L Blood Pressure Mean (mm Hg) 57 Source Monitor Position Sitting Blood Pressure Location Right Arm History Since Last Visit- (Skip if this is Patient's initial visit) Have you changed medications since your No last visit? Any new allergies or adverse reactions No Had a fall/change in ADL's that may No increase risk of falls Signs or symptoms of abuse and/or No neglect since last visit Have you been in the hospital since your No last visit? Has dressing in place as prescribed Yes Has compression in place as prescribed N/A Has offloadiing in place as prescribed N/A Experienced any changes in pain level or No management Left Footwear Regular Shoe Regular Shoe Right Footwear Regular Shoe Regular Shoe Pain Scale: 0-10 Numeric Is Patient Pain Free? Yes Yes Communication Assessment Preferred language Bahamian [employer]inator Required No Able to Read Yes Able to Write Yes Communication Tools None Right Hearing Abillity Normal Left Hearing Abillity Normal Visual Assistive Devices Glasses Teaching Assessment Preferences Verbal,Written, Audio/Visual, Demonstration Barriers to Learning None Readiness To Learn Excellent Willingness to Engage in Self Management High Activies Readiness to Engage in Self Management High Activities Anxiety Level Calm Cooperation Cooperative Perception Coherent Interest in Health Problem Asks Questions Education Importance Acknowledges Need Does Patient Smoke tobacco or other No substances Smoking Status Never smoker Is Patient Diabetic No 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 Cultural/Zoroastrian Needs that may affect No Treatment Plan Teaching: Wound Center *Welcome to the Wound Center -Person Taught Patient -Teaching Method Discussion -Response to teaching Verbalize understanding Welcome to the Wound Care Center English CHIN - Nurse 1 - General Ulcer Measurement Start: 08/12/23 09:02 Freq: Status: Active Protocol: Activity Type Activity Date Activity User E-sign Co-sign Detail Recorded Client Recorded Date Recorded By Document 08/12/23 09:02 [facility] Desktop 08/12/23 09:17 [facility] Document 08/26/23 10:32 Laptop 08/26/23 10:47 08/12/23 08/26/23 09:02 10:32 Wound Center Nurse 1 #2- CERVICAL INFERIOR WOUND (SURGICAL) -Combined with other wound No No -Current Size (cm) - Length 0.6 0.5 -Current Size (cm) - Width 0.5 0.6 -Current Size (cm) - Depth 0.8 2.0 -Total Square Cm 0.30 0.30 -Date of Last Picture (Recall this 08/12/23 field) -Photo Taken Yes No -Epithelialization None Present None Present -Tunneling No No -Undermining/Tunneling No No -Circular Undermining No No -Exudate Amt Large Large -Exudate Type Serosanguineous Serosanguineous -Wound Margin Distinct, Flat & Intact Outline Attached -Granulation Amt Large (67-100%) Medium (34-66%) -Granulation Quality Red Red -Slough/Fibrin Yes -Necrosis Amt Medium (34-66%) -Necrotic Tissue Type Adherent Slough -Structure Exposed Fat Layer N/A Exposed -Texture (Ritika-wound Skin Appearance) Assessed, Assessed Scarring -Moisture (Ritika-wound Skin Appearance) Assessed Assessed,Dry/ Scaly -Color (Ritika-wound Skin Appearance) Assessed Assessed -Temperature (Ritika-wound Skin No Abnormality No Abnormality Appearance) (Pt Warm) (Pt Warm) -Tenderness on Palpation (Ritika-wound No No Skin Appearance) -Ulcer Cleansing Soap and Water Wound Cleanser -Foul Odor after Cleansing No No -Anesthetic Used 5% Lidocaine 5% Lidocaine Gel Gel #1- SUPERIOR CERIVICAL SPINE (SURGICAL) -Combined with other wound No No -Current Size (cm) - Length 2.3 2.3 -Current Size (cm) - Width 1.3 1.2 -Current Size (cm) - Depth 0.1 2.0 -Total Square Cm 2.99 2.76 -Date of Last Picture (Recall this 08/12/23 field) -Photo Taken Yes No -Epithelialization None Present None Present -Tunneling No No -Undermining/Tunneling No No -Circular Undermining No No -Exudate Amt Large Large -Exudate Type Serosanguineous Serosanguineous -Wound Margin Distinct, Flat & Intact Outline Attached -Granulation Amt Medium (34-66%) -Granulation Quality Red -Slough/Fibrin Yes -Necrosis Amt Medium (34-66%) -Necrotic Tissue Type Adherent Slough -Structure Exposed Fat Layer N/A Exposed -Texture (Ritika-wound Skin Appearance) Assessed, Assessed Scarring -Moisture (Ritika-wound Skin Appearance) Assessed Assessed,Dry/ Scaly -Color (Ritika-wound Skin Appearance) Assessed Assessed -Temperature (Ritika-wound Skin No Abnormality No Abnormality Appearance) (Pt Warm) (Pt Warm) -Tenderness on Palpation (Ritika-wound No No Skin Appearance) -Ulcer Cleansing Soap and Water Wound Cleanser -Foul Odor after Cleansing No No -Anesthetic Used 5% Lidocaine 5% Lidocaine Gel Gel Lower Limb Edema Present NA WC - Nurse 2 - General Ulcer CM Notes Start: 08/12/23 09:02 Freq: Status: Active Protocol: Activity Type Activity Date Activity User E-sign Co-sign Detail Recorded Client Recorded Date Recorded By Document 08/12/23 09:32 GM Desktop 08/12/23 09:47 GM Document 08/26/23 11:09 GM Desktop 08/26/23 11:24 GM 08/12/23 08/26/23 09:32 11:09 Wound Center Nurse 2 #2- CERVICAL INFERIOR WOUND (SURGICAL) -Time 09:32 11:12 -Correct Patient Yes Yes -Correct Side, Site, Position Yes Yes -Correct Procedure Yes Yes -Procedure Performed Yes Yes -Type of Procedure Debridement Debridement -Clinical Debridement Subcutaneous Subcutaneous -Tissue Removed Subcutaneous Subcutaneous -Post Debridement (cm) - Length 0.6 0.8 -Post Debridement (cm) - Width 0.7 0.9 -Post Debridement (cm) - Depth 2.5 2.1 -Total Square (Post) (cm) 0.42 0.72 -Area of Debridement (cm) - Length 0.6 0.8 -Area of Debridement (cm) - Width 0.7 0.9 -Total Square (Area) (cm) 0.42 0.72 -Tunneling No No -Undermining/Tunneling No No -Circular Undermining No No -Wound/Ulcer Outcome Not Healed Not Healed -Ulcer Cleansing Rinsed/ Rinsed/ Irrigated with Irrigated with Saline Saline -Foul Odor after Cleansing No No -Bioengineered Tissue No No -Bleeding Controlled with Pressure Pressure -Treatment Response Procedure Procedure Tolerated Well Tolerated Well -Offloading No -Debridement - Subq, 1st 20sq cm No No #1- SUPERIOR CERIVICAL SPINE (SURGICAL) -Time 09:33 11:12 -Correct Patient Yes Yes -Correct Side, Site, Position Yes Yes -Correct Procedure Yes Yes -Procedure Performed Yes Yes -Type of Procedure Debridement Debridement -Clinical Debridement Subcutaneous Subcutaneous -Tissue Removed Subcutaneous Subcutaneous -Post Debridement (cm) - Length 1.6 1.8 -Post Debridement (cm) - Width 1.0 1.0 -Post Debridement (cm) - Depth 2.5 2.4 -Total Square (Post) (cm) 1.60 1.80 -Area of Debridement (cm) - Length 1.6 1.8 -Area of Debridement (cm) - Width 1.0 1.0 -Total Square (Area) (cm) 1.60 1.80 -Tunneling No No -Undermining/Tunneling No No -Circular Undermining No No -Wound/Ulcer Outcome Not Healed Not Healed -Ulcer Cleansing Rinsed/ Rinsed/ Irrigated with Irrigated with Saline Saline -Foul Odor after Cleansing No No -Bioengineered Tissue No No -Bleeding Controlled with Pressure Pressure -Treatment Response Procedure Procedure Tolerated Well Tolerated Well -Assistive Device(s) Wheelchair -Debridement - Subq, 1st 20sq cm Yes Yes Pain Scale: 0-10 Numeric Is Patient Pain Free? Yes Yes WC - Nurse 3 - General Ulcer D/C NN Start: 08/12/23 09:02 Freq: Status: Active Protocol: Activity Type Activity Date Activity User E-sign Co-sign Detail Recorded Client Recorded Date Recorded By Document 08/12/23 09:52 DL Desktop 08/12/23 09:54 DL Document 08/26/23 11:32 [facility] Desktop 08/26/23 11:32 [facility] 08/12/23 08/26/23 09:52 11:32 Wound Care Center Nurse 3 #2- CERVICAL INFERIOR WOUND (SURGICAL) -Ulcer Cleansing Rinsed/ Rinsed/ Irrigated with Irrigated with Saline Saline -Foul Odor after Cleansing No No -Primary Dressing Applied Aquacel Extra, Aquacel Extra, Mepilex Border Mepilex Border -Aquacel Extra 1 1 -Mepilex Border 1 1 #1- SUPERIOR CERIVICAL SPINE (SURGICAL) -Ulcer Cleansing Rinsed/ Rinsed/ Irrigated with Irrigated with Saline Saline -Foul Odor after Cleansing No No -Primary Dressing Applied Mepilex Border Aquacel Extra, Mepilex Border -Other Dressing aqaucel Ex -Aquacel Extra 0 -Mepilex Border 1 0 Treatment Response Procedure Procedure Tolerated Well Tolerated Well Pain Scale: 0-10 Numeric Is Patient Pain Free? Yes Yes WC - Visit Discharge Discharge Condition Stable Stable Ambulatory Status Wheelchair Wheelchair Transportation ECF Facility Type Director Of Design Care [facility] Facility Facility Orders Sent Yes Assessment/Plan Assessment/Plan (1) Non-healing surgical wound: CODE(S): T81.89XA - Other complications of procedures, not elsewhere classified, initial encounter QUALIFIERS: Encounter type: initial encounter Qualified Code(s): T81.89XA - Other complications of procedures, not elsewhere classified, initial encounter (2) Multiple myeloma: CODE(S): C90.00 - Multiple myeloma not having achieved remission (3) History of radiation therapy: CODE(S): Z92.3 - Personal history of irradiation (4) Paraplegia: CODE(S): G82.20 - Paraplegia, unspecified PLAN: Plan Debridement done as documented above, procedure was well-tolerated. No significant change since his last visit. Cultures taken, will review. ContinueAquacel extra daily for now, cover with gauze and tape. Change daily to twice daily depending on drainage. Prealbumin slightly low, continue Ariel twice daily. Vitamin C, D and zinc also recommended, he voiced understanding. He maybe a good candidate for plastic surgery evaluation due to impediments to healingas above. Currently on chemotherapy and history of radiation to the area. His questions were answered and he was advised to let us know if he has any further questions or concerns. Follow-up in 2 weeks or sooner if needed. This note was generated with [employer] dictation software. It may contain incorrectwords, spelling, and punctuation that were not noted in checking the note beforesigning. 08/26/23 1141 <Electronically signed by Te Shah MD> Cosigner Signature (if applicable): CC: ~ Signed [facility] Work Phone: 1(993) 977-559711-16-2023 History and physical note Author Te Shah [facility] [facility] August 12, 2023 3:09pm Note Date/Time August 12, 2023 11:52am [facility] [address] [place] [address] H&P Exam - Wound Care 08/12/23 1152 MR#: [id number] Acct: [id number] Name: ARMAND BARRON LEAH Rep #:[id number] : 1955 68 From: Te chavez MD PCP: Dr. Iraida Balderas MD Status:REG RCR Location: History of Present Illness Date of Service: 08/12/23 Chief Complaint: Non healing surgical wound History of Wound: Mr. Barron is a 68-year-old who was referred to this facility due to nonhealing surgical wound. Had surgery in October due to multiple myeloma. Surgery was uneventful with most of the surgical site healed but 2 areas which have not healed. He states that he has had wound dressings down to the area including a wound VAC. Not particularly sure what can address since hehas had. He is not sure how much drainage he is getting from the area either. Currently resides in an assisted living facility. Still follows up closely withoncology and is on monthly chemotherapy regimen and dexamethasone. Had also hadradiation therapy to the area. He feels well otherwise. States that he eats good. [facility] Medical History (Updated 08/12/23 @ 13:[address] Te Shah MD) Anemia Back pain DVT (deep venous thrombosis) History of radiation therapy Hypercholesteremia Hypertension Hypothyroidism Multiple myeloma Non-healing surgical wound Paraplegia Home Medications acetaminophen 500 mg capsule 500 mg PO Q6H PRN fever or pain 07/08/23 [History Last Taken Unknown] acyclovir 400 mg tablet 400 mg PO Q12H 07/08/23 [History Last Taken Unknown] amlodipine 10 mg tablet 10 mg PO DAILY 07/08/23 [History Last Taken Unknown] ascorbic acid (vitamin C) 1,000 mg tablet 1 g PO BID 07/08/23 [History Last Taken Unknown] cholecalciferol (vitamin D3) 125 mcg (5,000 unit) capsule 125 mcg PO DAILY 07/08/23 [History Last Taken Unknown] diphenhydramine HCl 25 mg capsule (Benadryl) 25 mg PO ONCE PRN itching 07/08/23 [History Last Taken Unknown] gabapentin 100 mg capsule 100 mg PO TID 07/08/23 [History Last Taken Unknown] ibuprofen 400 mg tablet 400 mg PO Q8H PRN pain 07/08/23 [History Last Taken Unknown] magnesium oxide 250 mg PO QHS 07/08/23 [History Last Taken Unknown] melatonin 3 mg capsule 6 mg PO HS 07/08/23 [History Last Taken Unknown] metoprolol tartrate 50 mg tablet 50 mg PO BID 07/08/23 [History Last Taken Unknown] omeprazole 20 mg tablet,delayed release 20 mg PO DAILY 07/08/23 [History Last Taken Unknown] oxycodone 5 mg tablet 5 mg PO Q6H PRN pain 07/08/23 [History Last Taken Unknown] sennosides 8.6 mg-docusate sodium 50 mg tablet (Senna Plus) 1 tab-cap PO BID 07/08/23 [History Last Taken Unknown] simethicone 80 mg chewable tablet (Gas Relief (simethicone)) 80 mg PO TID PRN abdominal distention 07/08/23 [History Last Taken Unknown] Disability Placard #1 ea 07/12/23 [Rx Last Taken Unknown] ferrous sulfate 325 mg (65 mg iron) tablet 325 mg PO DAILY 07/12/23 [History Last Taken Unknown] apixaban 5 mg tablet (Eliquis) 5 mg PO BID 07/17/23 [History Last Taken Unknown] dexamethasone 4 mg tablet 20 mg (5 x 4 mg) PO .COMPLEX #30 tabs 08/04/23 [Rx Last Taken Unknown] baclofen 5 mg tablet 5 mg PO BID 08/12/23 [History Last Taken Unknown] benzonatate 200 mg capsule 200 mg PO TID 08/12/23 [History Last Taken Unknown] calcium carbonate 600 mg calcium (1,500 mg) tablet 600 mg PO BID 08/12/23 [History Last Taken Unknown] lenalidomide 15 mg capsule (Revlimid) 15 mg PO .Q21 DAYS 08/12/23 [History Last Taken Unknown] levothyroxine 100 mcg tablet (Levo-T) 100 mcg PO DAILY 08/12/23 [History Last Taken Unknown] magnesium hydroxide 400 mg/5 mL oral suspension (Milk of Magnesia) 30 ml PO DAILY PRN constipation 08/12/23 [History Last Taken Unknown] polyethylene glycol 3350 17 gram/dose oral powder (ClearLax) 17 g PO DAILY 08/12/23 [History Last Taken Unknown] Allergy/AdvReac Type Severity Reaction Status Date / Time No Known Allergies Allergy Verified 08/12/23 09:19 Family History Mother Follicular lymphoma Father Hypertension Heart disease Brother Hypertension Other Cancer Surgical History H/O laminectomy History of cholecystectomy Social History housing: assisted living facility Smoking Status: Never smoker alcohol intake: former ROS Constitutional Constitutional: Denies excessive sweating, fatigue, headache(s), lethargy or poor appetite Eyes Eyes: Denies change in vision, discharge from eye(s), double vision, excessive blinking, exophthalmos, itchy eyes or loss of vision ENT HEENT: Denies disequillibrium, dizziness, epistaxis, foreign body in nose, hearing loss, hoarseness, lip swelling or loss taste/smell Cardiovascular Cardiovascular: Denies bluish discoloration of hand/feet, cold extremities, cyanosis, dizziness or erythema on extremities Respiratory/Chest Respiratory/Chest: Denies excessive phlegm production, hemoptysis, hoarseness, inability to speak, mouth breathing, nail bed cyanosis or pain with cough Gastrointestinal Gastrointestinal: Denies chewing difficulty, coffee ground emesis, cramping, dryheaves, early satiety or excessive flatus Genitourinary Genitourinary: Denies abdominal discomfort or flank pain Musculoskeletal Musculoskeletal: Denies atrophy, extremity pain, joint swelling, muscle cramps or tremors Integumentary Integumentary: Denies change in pigmentation, erythema, furuncle, nail changes or skin pain Neurologic Neurologic: Denies behavior changes, convulsions, disequilibrium, dizziness, headache(s), memory loss or numbness Psychiatric Psychiatric: Denies anxiety, auditory hallucinations, behavioral changes, panic attacks, tactile hallucinations or visual hallucinations Endocrine Endocrinology: Denies cold intolerance, deepening of the voice, excessive sweating, fatigue, increase in ring/shoe/hat size or palpitations Allergic/Immunologic Allergic/Immunologic: Denies itchy eyes, lip swelling, throat swelling, tongue swelling, eczemia or wheezing Vital Signs Vital Signs Vital Signs: 08/12/23 09:02 Temperature 97.6 F L Temperature Source Temporal Pulse Rate 55 L Respiratory Rate 16 Blood Pressure 92/40 L Blood Pressure Mean 57 Blood Pressure Source Monitor Blood Pressure Position Sitting Blood Pressure Location Right Arm Oxygen Delivery Method Room Air Weight Weight: 165 lb Body Mass Index (BMI) 27.4 Physical Exam Narrative ECOG 2, seen with his sister, wheelchair-bound Const alert, oriented x3 and no apparent distress General Appearance: cooperative, well kempt and well developed HEENT normocephalic and head/scalp atraumatic Face and Sinus: normal facial exam Eyes EOMs intact bilaterally General Eye: normal appearance of both eyes Neck full ROM General: normal visual inspection Resp normal respiratory effort, normal air movement and clear to auscultation bilaterally Effort and Inspection: able to speak in complete sentences Cardio regular rate and regular rhythm GI soft to palpation, non-tender and non-distended Bladder / Kidney Exam: catheter in place Extremity General Extremity: cyanosis and edema Skin Wounds: wounds noted Neuro oriented x3 and CN's II-XII intact bilaterally Neuro Narrative: Patient is paraplegic, unable to left leg off the floor to the wheelchair foot rest and needed assistance from his sister Speech: speech normal Gait (Neuro): unable to assess gait and other Wheelchair-bound Psych mental status grossly normal, thought process normal, cooperative, affect normaland speech normal Debridement Note Debridement Note Wound debrided: Upper back (superior cervical) Type of Debridement: Excisional debridement Anesthesia Used: 5% Lidocaine Gel Depth: Down to and including healthy tissue and in the subcutaneous layer Percentage of wound debrided: 100 Instrument Used: 5mm curette Tissue Removed: Slough and devitalized tissue Severity: Fat Layer Exposed Bleeding Controlled with: Pressure and Compression and gauze Patient tolerated procedure: Patient tolerated procedure well Post-Debridement Measurements and Additional Note: Post-Debridement Measurements/Treatment - Nurse 1 - General Ulcer Assessment Start: 08/12/23 09:02 Freq: Status: Active Protocol: RAUL Activity Type Activity Date Activity User E-sign Co-sign Detail Recorded Client Recorded Date Recorded By Document 08/12/23 09:02 [facility] Desktop 08/12/23 09:17 [facility] 08/12/23 09:02 - Today's Visit Information Type of service Follow-up Visit (Physician/LOCK TENDER ) Arrival Mode Wheelchair Transfer Assistance None Patient Identification Verified (Name & Yes ) Patient Requires Transmission-Based No Precautions Height and Weight Height 5 ft 5 in Weight 165 lb Weight in Pounds 165.0 lbs Body Mass Index (BMI) 27.4 BMI Classification Overweight BSA - Sean 1.82 Vital Signs Temperature (97.8 F-99.1 F) 97.6 F L Temperature Source Temporal Pulse Rate (60-100) 55 L Pulse Location Monitor Respiratory Rate (12-18) 16 Respiratory rate source Observation Oxygen Delivery Method Room Air Blood Pressure (90/60-120/80) 92/40 L Blood Pressure Mean 57 Source Monitor Position Sitting Blood Pressure Location Right Arm History Since Last Visit- (Skip if this is Patient's initial visit) Left Footwear Regular Shoe Right Footwear Regular Shoe Pain Scale: 0-10 Numeric Is Patient Pain Free? Yes Communication Assessment Preferred language Bah[place]ian [employer] Export Coordinator Required No Able to Read Yes Able to Write Yes Communication Tools None Right Hearing Abillity Normal Left Hearing Abillity Normal Visual Assistive Devices Glasses Teaching Assessment Preferences Verbal,Written, Audio/Visual, Demonstration Barriers to Learning None Readiness To Learn Excellent Willingness to Engage in Self Management High Activies Readiness to Engage in Self Management High Activities Anxiety Level Calm Cooperation Cooperative Perception Coherent Interest in Health Problem Asks Questions Education Importance Acknowledges Need Does Patient Smoke tobacco or other No substances Smoking Status Never smoker Is Patient Diabetic No 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 Cultural/Zoroastrian Needs that may affect No Treatment Plan Teaching: Wound Center *Welcome to the Wound Center -Person Taught Patient -Teaching Method Discussion -Response to teaching Verbalize understanding Welcome to the Wound Care Center Bahamian - Nurse 1 - General Ulcer Measurement Start: 08/12/23 09:02 Freq: Status: Active Protocol: Activity Type Activity Date Activity User E-sign Co-sign Detail Recorded Client Recorded Date Recorded By Document 08/12/23 09:02 [facility] Desktop 08/12/23 09:17 [facility] 08/12/23 09:02 Wound Center Nurse 1 #2- CERVICAL INFERIOR WOUND (SURGICAL) -Combined with other wound No -Current Size (cm) - Length 0.6 -Current Size (cm) - Width 0.5 -Current Size (cm) - Depth 0.8 -Total Square Cm 0.30 -Date of Last Picture (Recall this 08/12/23 field) -Photo Taken Yes -Epithelialization None Present -Tunneling No -Undermining/Tunneling No -Circular Undermining No -Exudate Amt Large -Exudate Type Serosanguineous -Wound Margin Distinct, Outline Attached -Granulation Amt Large (67-100%) -Granulation Quality Red -Structure Exposed Fat Layer Exposed -Texture (Ritika-wound Skin Appearance) Assessed, Scarring -Moisture (Ritika-wound Skin Appearance) Assessed -Color (Ritika-wound Skin Appearance) Assessed -Temperature (Ritika-wound Skin No Abnormality Appearance) (Pt Warm) -Tenderness on Palpation (Ritika-wound No Skin Appearance) -Ulcer Cleansing Soap and Water -Foul Odor after Cleansing No -Anesthetic Used 5% Lidocaine Gel #1- SUPERIOR CERIVICAL SPINE (SURGICAL) -Combined with other wound No -Current Size (cm) - Length 2.3 -Current Size (cm) - Width 1.3 -Current Size (cm) - Depth 0.1 -Total Square Cm 2.99 -Date of Last Picture (Recall this 08/12/23 field) -Photo Taken Yes -Epithelialization None Present -Tunneling No -Undermining/Tunneling No -Circular Undermining No -Exudate Amt Large -Exudate Type Serosanguineous -Wound Margin Distinct, Outline Attached -Structure Exposed Fat Layer Exposed -Texture (Ritika-wound Skin Appearance) Assessed, Scarring -Moisture (Ritika-wound Skin Appearance) Assessed -Color (Rtiika-wound Skin Appearance) Assessed -Temperature (Ritika-wound Skin No Abnormality Appearance) (Pt Warm) -Tenderness on Palpation (Ritika-wound No Skin Appearance) -Ulcer Cleansing Soap and Water -Foul Odor after Cleansing No -Anesthetic Used 5% Lidocaine Gel WC - Nurse 2 - General Ulcer CM Notes Start: 08/12/23 09:02 Freq: Status: Active Protocol: Activity Type Activity Date Activity User E-sign Co-sign Detail Recorded Client Recorded Date Recorded By Document 08/12/23 09:32 [facility] Desktop 08/12/23 09:47 [facility] 08/12/23 09:32 Wound Center Nurse 2 #2- CERVICAL INFERIOR WOUND (SURGICAL) -Time 09:32 -Correct Patient Yes -Correct Side, Site, Position Yes -Correct Procedure Yes -Procedure Performed Yes -Type of Procedure Debridement -Clinical Debridement Subcutaneous -Tissue Removed Subcutaneous -Post Debridement (cm) - Length 0.6 -Post Debridement (cm) - Width 0.7 -Post Debridement (cm) - Depth 2.5 -Total Square (Post) (cm) 0.42 -Area of Debridement (cm) - Length 0.6 -Area of Debridement (cm) - Width 0.7 -Total Square (Area) (cm) 0.42 -Tunneling No -Undermining/Tunneling No -Circular Undermining No -Wound/Ulcer Outcome Not Healed -Ulcer Cleansing Rinsed/ Irrigated with Saline -Foul Odor after Cleansing No -Bioengineered Tissue No -Bleeding Controlled with Pressure -Treatment Response Procedure Tolerated Well -Debridement - Subq, 1st 20sq cm No #1- SUPERIOR CERIVICAL SPINE (SURGICAL) -Time 09:33 -Correct Patient Yes -Correct Side, Site, Position Yes -Correct Procedure Yes -Procedure Performed Yes -Type of Procedure Debridement -Clinical Debridement Subcutaneous -Tissue Removed Subcutaneous -Post Debridement (cm) - Length 1.6 -Post Debridement (cm) - Width 1.0 -Post Debridement (cm) - Depth 2.5 -Total Square (Post) (cm) 1.60 -Area of Debridement (cm) - Length 1.6 -Area of Debridement (cm) - Width 1.0 -Total Square (Area) (cm) 1.60 -Tunneling No -Undermining/Tunneling No -Circular Undermining No -Wound/Ulcer Outcome Not Healed -Ulcer Cleansing Rinsed/ Irrigated with Saline -Foul Odor after Cleansing No -Bioengineered Tissue No -Bleeding Controlled with Pressure -Treatment Response Procedure Tolerated Well -Debridement - Subq, 1st 20sq cm Yes Pain Scale: 0-10 Numeric Is Patient Pain Free? Yes WC - Nurse 3 - General Ulcer D/C NN Start: 08/12/23 09:02 Freq: Status: Active Protocol: Activity Type Activity Date Activity User E-sign Co-sign Detail Recorded Client Recorded Date Recorded By Document 08/12/23 09:52 DL Desktop 08/12/23 09:54 DL 08/12/23 09:52 Wound Care Center Nurse 3 #2- CERVICAL INFERIOR WOUND (SURGICAL) -Ulcer Cleansing Rinsed/ Irrigated with Saline -Foul Odor after Cleansing No -Primary Dressing Applied Aquacel Extra, Mepilex Border -Aquacel Extra 1 -Mepilex Border 1 #1- SUPERIOR CERIVICAL SPINE (SURGICAL) -Ulcer Cleansing Rinsed/ Irrigated with Saline -Foul Odor after Cleansing No -Primary Dressing Applied Mepilex Border -Other Dressing aqaucel Ex -Mepilex Border 1 Treatment Response Procedure Tolerated Well Pain Scale: 0-10 Numeric Is Patient Pain Free? Yes WC - Visit Discharge Discharge Condition Stable Ambulatory Status Wheelchair Facility Type Director Of Design Care Facility Orders Sent Yes Additional Wound Wound debrided: Upper back (inferior Cervical) Type of Debridement: Excisional debridement Anesthesia Used: 5% Lidocaine Gel Depth: Down to and including healthy tissue and in the subcutaneous layer Percentage of wound debrided: 100 Instrument Used: 5mm curette Tissue Removed: Slough and devitalized tissue Severity: Fat Layer Exposed Amount of bleeding with debridement: Mild Bleeding Controlled with: Pressure Patient tolerated procedure: Patient tolerated procedure well Charges/Coding Visit Charges Office Visits / Consults: [id number] OV L4 New Procedures Integumentary [id number]: [id number] Marley subq tissue 20 sq cm/< Assessment/Plan Assessment/Plan (1) Non-healing surgical wound: CODE(S): T81.89XA - Other complications of procedures, not elsewhere classified, initial encounter QUALIFIERS: Encounter type: initial encounter Qualified Code(s): T81.89XA - Other complications of procedures, not elsewhere classified, initial encounter (2) Multiple myeloma: CODE(S): C90.00 - Multiple myeloma not having achieved remission (3) History of radiation therapy: CODE(S): Z92.3 - Personal history of irradiation (4) Paraplegia: CODE(S): G82.20 - Paraplegia, unspecified PLAN: Plan Debridement done as documented above, procedure was well-tolerated. No significant/clinical concerns for infection at this time, following debridement wound appeared really clean. Will hold off culture and reevaluate need for culture at next visit. Concern for delayed wound healing due to underlying cancer, radiation therapy and chronic wound. Also currently on chronic steroid treatment. Aquacel extra daily for now, cover with gauze and tape. Change daily to twice daily depending on drainage. Prealbumin level ordered. Ariel twice daily recommended. Vitamin C, D and zinc also recommended, he voiced understanding. His questions were answered and he was advised to let us know ifhe has any further questions or concerns. Follow-up in 2 weeks due to the holiday or sooner if needed. This note was generated with [employer] dictation software. It may contain incorrectwords, spelling, and punctuation that were not noted in checking the note beforesigning. 08/12/23 1509 <Electronically signed by Te Shah MD> Cosigner Signature (if applicable): CC: ~ Signed [facility] Work Phone: [phone] [phone] History of Present illness Narrative* Gisel Wolf MD - 04/14/2023 11:40 AM EDT Images from the original note were not included. Attending physician: Gisel Wolf MD Referring physician: MD Salena Way My recommendations will become communicated to the referring physician via electronic medical chartor through US mail. CHIEF COMPLAINT: [facility] MM HISTORY OF PRESENT ILLNESS: Armand Barron is a 67 y.o. male who presents to the Plasma cell dyscrasia clinic today at the [facility] for 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 Please allow me to review the patient's oncological history to date: He had been having worsening pain over the course of a year. He presented to the hospital on the 11/10/2022 with progressive weakness and loss of sensation in bilateral legs. This has been ongoing for about 2 weeks. MRI of spine showed compression fracture at T2 and T7 levels as well as the presence of a substantial epidural tumor at T7 with cord compression. There were also multiple bone lesions throughout the spine and pelvis. CT chest abdomen and pelvis on 11/10/2022: Multiple lytic lesions throughout the skeleton, mildly enlarged hilar and mediastinal lymph nodes but no solid tumor or masses. 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 Radiation Oncology was consulted and he underwent MOPP radiation to that area. Blood work done on 11/15/2022: WBC 11.7, hemoglobin 10.7, platelet 204, creatinine 0.64, calcium 8.6 Repeat blood work on 11/13/2022: Centerview 20.8, lambda 0.86, kappa/lambda ratio 24.3 No bone marrow biopsy done. Patient had been doing therapy at [facility] in [place] and staff noted that his incision began looking erythematous, with copious drainage. He was sent back to [facility] for evaluation by neurosurgery. Went to on 12/02 for drain placement and fluid sent for culture, no growth. He remained clinically very stable. Patient discharged to return to [facility] in [place] The patient received a course of 20 Dan delivered in 5 fractions to the thoracic spine encompassing T2-T7 (T1-T8). INTERVAL HISTORY: The patient is here today for a visit. He is accompanied to the visit by his sister. Overall he thinks he is doing well. He feels the weakness in his legs are getting better. He saw his neurosurgeon recently and was toldhe is doing well. He still uses a wheelchair to get around. He is starting to use a walker to get around. He is still at a SNF and has been getting physical therapy. His sister also thinks he is getting better. He continues to endorse pain in his his shoulder- he thinks this is improved. He also endorses bloating in stomach. He denies diarrhea. He denies BRBPR or melena. He still has a urinary catheter. He started chemotherapy on 03/08. There was delays due to delayed wound healing. REVIEW OF SYSTEMS: Constitutional: (-) fever, (-) chills, (-) night sweats, (-) weight loss, (-) fatigue Eyes: (-) visual changes, (-) diplopia, (-) redness ENMT: (-) sinus congestion, (-) rhinorrhea, (-) dysphagia Cardio: (-) chest pain, (-) shortness of breath, (-) orthopnea, (-) PND Pulmonary: (-) cough, (-) sputum production, (-) hemoptysis GI: (-) abdominal pain, (-) nausea, (-) diarrhea, (-) constipation, : (-) dysuria, (-) hematuria, (-) frequency Musc: (-) joint pain, (-) muscle pain, (-) joint redness Skin: (-) Rash, (-) Pruritus Neuro: see hpi Psychiatric: (-) depression Endo: (-) heat intolerance, (-) cold intolerance, (-) polyuria, (-) polyphagia Heme: (-) lymph nodes, (-) bruising, (-) easy bleeding Allergic/Immun: (-) frequent infections (-) seasonal allergies Current Outpatient Medications: acetaminophen 500 MG tablet, Take 2 tablets by mouth Every 6 hours as needed., Disp: , Rfl: amLODIPine 10 MG tablet, Take by mouth., Disp: , Rfl: Atorvastatin 10 MG tablet, Take by mouth., Disp: , Rfl: Cholecalciferol 1.25 MG (95362 UT) capsule, Take by mouth., Disp: , Rfl: Doxycycline monohydrate 100 MG capsule, Take 1 capsule by mouth Twice daily., Disp: , Rfl: Levothyroxine 88 MCG tablet, Take 1 tablet by mouth daily., Disp: 30 tablet, Rfl: 11 Metoprolol 50 MG tab regular release, Take 1 tablet by mouth 2 times daily., Disp: , Rfl: omeprazole [address] capsule, TAKE 1 CAPSULE BY MOUTH 1 TIME EACH DAY. DO NOT CRUSH OR CHEW., Disp: , Rfl: oxycodone 5 MG capsule, Take 1 capsule by mouth Every 6 hours as needed., Disp: , Rfl: PEG 3350 17 g Pack, MIX 1 PACKET IN 4-6OZ OF BEVERAGE AND DRINK BY MOUTH EVERY DAY FOR 3 DAYS, Disp: , Rfl: Revlimid 15 MG capsule, , Disp: , Rfl: traZODone 50 MG tablet, Take 1 tablet by mouth Every morning as needed., Disp: , Rfl: PMH: hypertension, hyperlipidemia, hypothyroidism, GERD, and recent diagnosis of multiple myeloma with T2 and T7 pathological fractures with epidural tumor and subsequent cord compression. He underwent thoracic decompression and removal of T2 and T7 epidural tumor by laminectomy, facetectomy, and foraminotomy as well as posterior thoracic fusion of C7-T4 by screw fixation on 11/11/[address] Tao PSH : epidural tumor and subsequent cord compression. He underwent thoracic decompression and removal of T2 and T7 epidural tumor by laminectomy, facetectomy, and foraminotomy as well as posterior thoracic fusion of C7-T4 by screw fixation on 11/11/[address] 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 EOMI ENMT: Neck supple. No JVD LYMPHATIC: No cervical, axillary, or supraclavicular adenopathy. RESP: Clear to auscultation bilaterally posteriorly, no wheezes. No rhonchi CARDIO: Regular rate and rhythm. No rubs murmurs or gallops, ABD: Abdomen soft, non-tender. No masses or organomegaly. BACK: No vertebral tenderness. Full Range of motion EXTREMITIES: No significant edema. NEURO: Nonfocal. CN II-XII WNL,decreased strength in bilateral LEs, bilateral plantars downgoing. LABS: I performed an extensive review of the patient's outside records which include but are not limited to records, faxed Documents and when indicated review of records care everywhere. The pertinent laboratory findings are summarized below. I have reviewed all the laboratory tests completed for today's clinic visit. Blood work 11/10/2022: SPEP presence of small M protein, kappa 137.4, lambda 1.2, kappa/lambda ratio 114.5, IgA 180, IgM 23, IgG 1132 Results for orders placed or performed in visit on 04/14/23 SPE SERUM TOTAL PROTEIN Result Value Ref Range Total Protein 6.2 (L) 6.4 - 8.3 g/dL IMMUNOGLOBULINS IGG IGA IGM Result Value Ref Range IGG 797 600 - 1,560 mg/dL IgA 60 (L) 90 - 410 mg/dL IGM <20 (L) 30 - 360 mg/dL COMPREHENSIVE METABOLIC PANEL Result Value Ref Range Sodium 137 135 - 145 mmol/L Potassium 4.1 3.5 - 5.0 mmol/L Chloride 102 98 - 108 mmol/L BUN 14 7 - 25 mg/dL Creatinine 0.81 0.70 - 1.30 mg/dL Glucose 92 70 - 99 mg/dL Bilirubin Total 0.2 <1.5 mg/dL Albumin 3.8 3.5 - 5.0 g/dL Total Protein 6.7 6.4 - 8.3 g/dL AST 19 10 - 39 U/L ALP 59 32 - 126 U/L Calcium 8.9 8.6 - 10.5 mg/dL CO2 27 21 - 31 mmol/L ALT 35 10 - 52 U/L Bun/Crea Ratio 17 Osmolality (Calculated) 287 278 - 305 mOsm/kg Anion Gap 12 7 - 17 mmol/L eGFR, CKD-EPI, Male >90 >=60 mL/min/1.73m2 CBC AND ELECTRONIC DIFF Result Value Ref Range WBC Count 4.87 3.73 - 10.10 K/uL RBC Count 4.69 4.38 - 5.83 M/uL Hemoglobin 11.9 (L) 13.4 - 16.8 g/dL Hematocrit 38.6 (L) 39.6 - 48.8 % Mean Cell Volume 82.3 79.0 - 94.5 fL Mean Cell Hgb 25.4 (L) 26.1 - 33.3 pg Mean Cell Hgb Conc 30.8 (L) 31.9 - 36.5 g/dL RBC Distribution 19.6 (H) 10.9 - 14.3 % Platelet Count 204 146 - 337 K/uL Mean Platelet Volume 10.3 8.7 - 12.3 fL DIFF STATUS Electronic Differential Segs + Bands Auto 76.7 % Immature Grans % 0.4 % Lymphocyte % Auto 10.9 % Monocyte % Auto 6.2 % Eosinophil % Auto 3.7 % Basophil % Auto 2.1 % Nucleated RBC 0.0 <=0.2 /100 WBC Segs + Bands,Absolute Auto 3.74 1.57 - 6.19 K/uL Immature Grans Absolute <0.04 <=0.07 K/uL Abs Lymph Auto 0.53 (L) 0.83 - 3.57 K/uL Abs [place] Auto 0.30 0.24 - 0.93 K/uL Abs Eos Auto 0.18 0.00 - 0.48 K/uL Abs Baso Auto 0.10 (H) 0.00 - 0.09 K/uL IMAGING: MRI spine 12/02/22 At the T7 level, there has been progression of a severe compression fracture and retropulsion of bony fragments into the spinal canal. Posterior decompression has been performed at this level. There is compression of the cord at this level with increased cord signal intensity as above. The overall extent of cord compression at this level is decreased compared to the prior postoperative examination from 11/10/2022. Resection of the previously noted mass at the T2 level. There is a small residual enhancing tissue in the left T2-T3 neural foramen, which may represent granulation tissue or an element of residual mass. Cord compression in this area has improved. Enhancing masses in the T10 and T11 vertebral bodies, not significantly changed. In the posterior paraspinal soft tissues, there is a large fluid collection at the midline and slightly right of midline, which extends from approximately the C5 level to the T8 level. There is some extension of the fluid collection to the laminectomy defects at T2 and T7. Some peripheral enhancement is present. This may represent a postoperative seroma, however, sterility is not confirmed. Clinical correlation is CT C spine 12/01/22 1. Interval progression of severe pathologic fracture of the T7 vertebral body now with vertebral plana, extensive destructive changes including the left-sided pedicle. Interval development of 5 mm of retropulsion of the bone fragment into the spinal canal to the right of midline now with mild compression of the right thoracic spinal cord not seen on the prior exam with 6 mm midline AP thecal sac diameter. 2. Postoperative changes of posterior instrumented fixation from C7 to T4 as noted on 11/11/2022 bridging pathologic fracture at the T2 level. New superficial fluid collection in the posterior soft tissues overlying the surgical bed without communication with the thecal sac likely a postoperative se leonard measuring 6 x 11 x 7 cm, this is unlikely to represent an abscess. PATHOLOGY: [id number] (11/11/2022) A. Spinal epidural mass: Centerview-restricted plasma cell neoplasm Bone marrow 01/29/23 (A-C) Bone marrow specimen [biopsy, clot section, aspirate smear, peripheral blood smear]: -- Involvement by plasma cell neoplasm. Note: The bone marrow is mildly hypercellular (50% cellularity) and contains a kappa-restricted plasma cell neoplasm in a background of preserved trilineage hematopoiesis. Plasma cells comprise approximately 25% of marrow cellularity. Chromosome analysis as well as myeloma FISH studies will be performed for further evaluation. Cytogenetic analysis revealed a Normal karyotype. Myeloma Profile [Interphase FISH]: Negative for loss of TP53, gain/amplification of 1q, del(1p), -13/del(13q), IGH rearrangements, del(17p), +5, +9, +11, +15. ASSESSMENT AND PLAN: # KLC MM He presented to the hospital on the 11/10/2022 with progressive weakness and loss of sensation in bilateral legs. This has been ongoing for about 2 weeks. MRI of spine showed compression fracture at T2 and T7 levels as well as the presence of a substantial epidural tumor at T7 with cord compression. There were also multiple bone lesions throughout the spine and pelvis. CT chest abdomen and pelvis on 11/10/2022: Multiple lytic lesions throughout the skeleton, mildly enlarged hilar and mediastinal lymph nodes but no solid tumor or masses. 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 Blood work done on 11/15/2022: WBC 11.7, hemoglobin 10.7, platelet 204, creatinine 0.64, calcium 8.6 Repeat blood work on 11/13/2022: Centerview 20.8, lambda 0.86, kappa/lambda ratio 24.3 BM Bx: 25% PC The patient received a course of 20 Dan delivered in 5 fractions to the thoracic spine encompassing T2-T7 (T1-T8). I had a detailed discussion with Armand Barron about the pathophysiology as well as treatment options for multiple myeloma. The patient understands that this is an essence an incurable disease and treatment is geared towards prolonging survival as well as improving quality of life. We discussed the current set of care would be induction chemotherapy with a multi drug regimen followed by consideration of autologous stem cell transplant in selected patients. I do not think he is a transplant candidate at this time. I had recommended induction with therapy with combination of daratumumab, lenalidomide and dexamethasone as per the SON trial. There were delays due delayed wound healing We will check his plasma cell markers. I still do not think he is a transplant candidate and would recommend he continuing on the same regimen of DRD for at least 6 cycles. He will follow up with Dr Addison for his treatment # Myeloma bone disease: - Dental evaluation - I would recommend xgeva to reduce the risk of skeletal related events, decrease bone pain- q month during induction followed by q3 months for total 2 years - Calcium (1200 mg) and vitamin D (800-1000 units) daily # Secondary immunodeficiency: - We recommend acyclovir 400 mg BID (or equivalent) for HSV/VZV prophylaxis - Immunizations: Influenza vaccinations yearly # VTE prophylaxis: - continue aspirin for VTE prophy # other chronic medical problems: - he will follow up with his other providers. # RTC 5 months Gisel Wolf MD [employer] Hematology 04/14/23 Pager # [phone] This note was generated with the use of voice dictation software. Errors may be present despite attempts at proofreading. Please page/call with any questions. * Cinda Poole RN - 04/14/2023 11:40 AM EDT After visit summary was printed and given to patient. Discharge instructions and follow up appointments reviewed with patient. Patient verbalized understanding. All questions answered. Patient and family encouraged to call with any additional questions. documented in this encounterSCC[facility]23 Instructions* Patient Instructions* Rayna Gregg RN - 04/14/2023 11:40 AM EDT Medical team Doctor: Dr. Giesl Wolf Primary RN: Rayna LOPEZ Contact numbers Clinic phone: [phone] Clinic fax: [phone] Plan for today - follow up with Dr Addison - continue daratumumab - continue revlimid - follow up in 5 months Our Clinic is Moving!! In the coming months (currently set for April 12, but may change), our clinic will be moving to the 6th floor of [facility] ([address] , [place] [address]). You will receive a letter and televox call with the confirmed date of our move. At the new building, you will continue tocheck-in at Registration prior to your appointment. Please be patient with the staff through this transition. We will do our best to update you as we gain more information about the move and the anticipated changes. We look forward to improving the efficiency of your care. Please do not hesitate toaddress questions and concerns with your care team. Thank you. Medical team Doctor: Gisel Wolf FREDI: Gissel Pepper Primary RN: Rayna Gregg, RN and Susana Winters, RN Contact numbers Clinic phone: [phone] Clinic fax: [phone] Medication refills Please allow 1 week for chemotherapy (e.g. Lenalidomide [Revlimid], Pomalidomide [Pomalyst], Cyclophosphamide [Cytoxan]) and pain medication refills (e.g. Morphine, methadone, etc.) MEDICAL RECORDS The Release of Information (MARTINEZ) area is staffed from 8:00 a.m. to 7:00 p.m. and is available for walk in requests from 8:00 a.m. to 4:30 p.m. [facility] is responsible for answering requests for copies of medical records from various requestors such as insurance companies, attorneys, hospitals and patients. Please note it can take up to 2 weeks to complete your request. [phone]; [phone] (fax). Paperwork Please allow 2 weeks to complete disability, FMLA, and insurance paperwork Education We have created a series of patient-oriented talks to discuss what is myeloma, how to follow myeloma treatment response, smoldering myeloma, what is a transplant and who should get it, what is maintenance therapy, and one talk about the [place] Myeloma Initiative. http://www.mmore.org/ImagineMMORE/2014 /index.html, Another nice resource is available from the National Comprehensive Cancer Network (NCCN) at http://www.nccn.org/patients/guidelines/cancers.aspx#myeloma. [facility] [employer] [facility] is a secure way to get access to your labs online. Once you're online, you may need to send a message to the office to release results so that you can review the results of your blood tests. For non-emergent concerns, please send us a [employer] message but please do your best to describe your issue fully (if it's a symptom for instance, tell us how long you've had it, what makes it better or worse, what you've done for it already) and one of our nurses or nurse practitioners will respond in consultation with me as needed. For questions or concerns regarding MyChart access or technical dificulties, please call [phone] or toll free at . Health maintenance - We recommend all patients check in with a dentist every 6 months ideally, every 12 months as second best. - Vaccinations are safe and effective prevention tools that stimulate your immune system. They decrease your risk of infection. Flu shots are recommended every year for everyone, and we recommend additional vaccines for myeloma patients as this cancer weakens the immune system. documented in this encounterSCCI Hospital [facility]05-11-2023 History of Present illness Narrative* Emanuel Guerra MD - 02/04/2023 11:00 AM EDT Images from the original note were not included. RADIATION ONCOLOGY FOLLOW-UP NOTE Patient Name (MRN): Armand Barron ([id number]) Radiation Oncologist: Emanuel Guerra MD : 1955 Date of Service: 02/04/2023 Referring Physician: Renuka Addison MD DIAGNOSIS Multiple myeloma PRIOR RADIATION TREATMENT 12/29/22-01/05/23: 20 Dan delivered in 5 fractions post-operatively to the thoracic spine encompassing T2-T7 (T1-T8). ASSESSMENT & PLAN Mr. Barron is now 1 month out from completion of a course of postoperative radiation therapy in the management of his multiple myeloma for which he underwent thoracic decompression and removal of epidural tumor at T2 and T7. He appears to be continuing to improve from a functional standpoint. He willbe initiating systemic treatment with Dr. Addison very soon. For the time being, as he begins systemic treatment, I mentioned to Mr. Barron that I will plan no scheduled follow-up with him but could see him on an as- needed basis. I encouraged him to contact me anytime should any question or concerns arise. He was agreeable to the same. Thank you for allowing us to participate in the multidisciplinary care of this patient. ONCOLOGIC HISTORY Armand Barron is a 67 y.o. male with multiple myeloma with recent finding of multiple lytic lesions in the bone including pathologic fractures of T2 and T7 with epidural tumor causing spinal cord compression. His history is as follows: -Presented to family medicine on 11/05/22 with tingling in his legs and feet; bilateral -11/10/22- Presented to ED with worsening symptoms; now lower extremity weakness and numbness; L>R; also pain in the upper thoracic spine radiating to the scapular region -11/10/22 MRI cervical, thoracic and lumbar spine: There is a pathologic vertebral plana deformity of the T2 vertebral body. There is compression of the cord due to anterior and left dorsal epidural tumor. There is a pathologic compression fracture at T7 with moderate loss of vertebral body height and substantial epidural tumor with compression of the cord. There are several other smaller metastatic lesions throughout the thoracic marrow. No abnormal intradural enhancement. There is a left scapular metastatic lesion -11/10/22 - CT chest, abdomen, pelvis - Mild mediastinal and hilar adenopathy, Other lytic sites of disease include sacrum, L3 -11/11/22 - Thoracic decompression and removal of epidural tumor at T2 and T7 by lamiectomy, facetectomy, and foraminotomy; posterior thoracic fusion C7-T4; Pathology: Centerview restricted, plasma cell neoplasm -Developed wound issues; required hospitalization in November 2022 due to wound infection -12/29/22-01/05/23: Proceeded with 20 Dan delivered in 5 fractions to the thoracic spine encompassingT2-T7 (T1-T8). INTERIM HISTORY Following with Dr. Addison. Patient seen by Dr. Wolf at [facility] who recommended daratumumab, Revlimid, and dexamethasone. Bone marrow biopsy performed 01/29/23. Involvement by plasma cell neoplasm. Note: The bone marrow is mildly hypercellular (50% cellularity) and contains a kappa- restricted plasma cell neoplasm in a background of preserved trilineage hematopoiesis. Plasma cells comprise approximately 25% of marrow cellularity. Chromosome analysis as well as myeloma FISH studies will be performed for further evaluation Dr. Addison plans to see the patient in a couple weeks to make final decisions on systemic treatment. Currently with wound VAC in upper back. No significant skin reaction. Reports a pain score 1 out of10. Continues with physical therapy and is noting some slow but steady improvement. REVIEW OF SYSTEMS Review of Systems Neurological: Positive for extremity weakness. PHYSICAL EXAMINATION BP 107/55 Pulse 70 Temp 37.2 C (98.9 F) (Temporal) No data recorded Physical Exam Vitals reviewed. Constitutional: Appearance: Normal appearance. HENT: Head: Normocephalic. Eyes: Extraocular Movements: Extraocular movements intact. Cardiovascular: Rate and Rhythm: Normal rate and regular rhythm. Pulmonary: Effort: Pulmonary effort is normal. Abdominal: Palpations: Abdomen is soft. Musculoskeletal: Cervical back: Neck supple. Skin: Comments: Wound VAC noted upper back; skin intact Neurological: Mental Status: He is alert. Motor: Weakness present. Comments: Continues with PT for bilateral lower extremity plegia; noting some slow improvement DATA ANALYSIS I have personally reviewed the following imaging in the PACS system and additional reports as below. IMAGING: Reviewed imaging from Bone marrow biopsy 01/29/23 PATHOLOGY: Reviewed bone marrow biopsy report 01/29/23 documented in this encounterBrooke Glen Behavioral [id number] Procedure note* Valery Regalado RN - 01/29/2023 12:55 PM EDT This RN attempted to call report to the pt's receiving facility three times, and the phone rang busy each time [facility] [id number] Procedure note* Valery Regalado RN - 01/29/2023 12:55 PM EDT This RN attempted to call report to the pt's receiving facility three times, and the phone rang busy each time * Nia Gaines MD - 01/29/2023 11:51 AM EDT Interventional Radiology Brief Postprocedure Note: Name: Armand Barron Date of Surgery: 01/29/23 Indication for procedure: Multiple Myeloma Pre-Procedure Diagnosis: Diagnoses of Multiple myeloma not having achieved remission (CMS/HCC), 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 Post-Procedure Diagnosis: Same as Pre-Procedure Diagnosis Description of procedure: CT guided bone marrow aspiration and biopsy Performing Provider: Nia Gaines MD Staff Role Susana Cruz Retort Engineer Lori Bates, dealer relationship manager Nurse Nia Gaines MD No role selected Anesthesia: Conscious Sedation Significant Findings: Successful CT guided bone marrow biopsy, right iliac crest Complications: None Estimated Blood Loss: minimal Specimens Removed: 1 x 11g core + bone marrow aspirate submitted to pathology Disposition: Recovery area - Plan for home discharge Medications (Filter: Administrations occurring from 1050 to 1151 on 01/29/23) As of 01/29/23 1151 lidocaine (XYLOCAINE) 1 % injection (mL) Total volume: 5 mL Date/Time Rate/Dose/Volume Action 01/29/23 1139 5 mL Given Final Radiology report with images in PACS to follow. The patient tolerated the procedure well without incident or complication and is in stable condition. 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 Planned Procedure: CT guided bone marrow biopsy History and Physical Update ( H&P completed within the previous thirty days ) I personally reviewed the History and Physical, interviewed and examined the patient prior to surgery. No changes have occurred in the patient's condition since the History and Physical was completed. Allergies: No Known Allergies Past Medical History: Past Medical History: Diagnosis Date Cord compression (CMS/HCC) 11/10/2022 T2-T7 cord compression Vanegas catheter in place 11/10/2022 Hypercholesteremia Hypertension Hypothyroidism Multiple myeloma (CMS/HCC) 2022 Stapled skin wound 2022 thoracic spine Vitamin deficiency Surgical History: Past Surgical History: Procedure Laterality Date CHOLECYSTECTOMY 09/27/1989 SPINAL CORD DECOMPRESSION 11/11/2022 Fusion Decompression T8-T9, T2 tumor removal, T2-T7 spinal cord compression Social History: Social History Socioeconomic History Marital status: Single Spouse name: Not on file Number of children: Not on file Years of education: Not on file Highest education level: Not on file Occupational History Not on file Tobacco Use Smoking status: Never Smokeless tobacco: Never Vaping Use Vaping Use: Never used Substance and Sexual Activity Alcohol use: Yes Alcohol/week: 2.0 standard drinks Types: 2 Cans of beer per week Drug use: Never Sexual activity: Not on file Other Topics Concern Not on file Social History Narrative Not on file Medications: Current Outpatient Medications on File Prior to Encounter Medication Sig Dispense Refill acetaminophen (TYLENOL) 500 mg tablet Take 2 tablets (1,000 mg total) by mouth every 6 (six) hours if needed for mild pain. amLODIPine (NORVASC) 10 mg tablet TAKE 1 TABLET BY MOUTH EVERY DAY (Patient taking differently: Take 1 tablet (10 mg total) by mouth 1 (one) time each day.) 90 tablet 3 atorvastatin (LIPITOR) 10 mg tablet TAKE 1 TABLET BY MOUTH EVERY DAY (Patient taking differently: Take 1 tablet (10 mg total) by mouth 1 (one) time each day.) 90 tablet 3 cholecalciferol (VITAMIN D-3) 1,250 mcg (50,000 unit) capsule Take 1 capsule (50,000 Units total) by mouth 1 (one) time per week. 12 capsule 2 levothyroxine (SYNTHROID, LEVOTHROID) 88 mcg tablet Take 1 tablet (88 mcg total) by mouth 1 (one) time each day. 90 each 3 metoprolol tartrate (LOPRESSOR) 50 mg tablet TAKE 1 TABLET BY MOUTH TWICE A DAY (Patient taking differently: Take 1 tablet (50 mg total) by mouth 2 (two) times a day.) 60 tablet 2 omeprazole (PriLOSEC) [address] capsule TAKE 1 CAPSULE BY MOUTH 1 TIME EACH DAY. DO NOT CRUSH OR CHEW. (Patient taking differently: Take 1 capsule (20 mg total) by mouth 1 (one) time each day.) 90 capsule 1 oxyCODONE (OXY-IR) 5 mg immediate release capsule Take 1 capsule (5 mg total) by mouth every 6 (six) hours if needed for severe pain. Max Daily Amount: 20 mg 12 capsule 0 traZODone (DESYREL) 50 mg tablet Take 1 tablet (50 mg total) by mouth at bedtime as needed for sleep. No current facility-administered medications on file prior to encounter. Directed physical examination: Visit Vitals BP 121/74 Pulse 85 Temp 37.1 C (98.8 F) Resp 16 Constitutional Assessment: No acute distress, resting comfortably HEENT Assessment: Normocephalic, atraumatic Neurological Assessment: Extraocular movements intact, moving all extremities spontaneously Cardiovascular Assessment: Extremities pink and well perfused Pulmonary Assessment: No respiratory distress, symmetric chest rise Abdomen: Nondistended, no voluntary guarding Musculoskeletal Assessment: paraplegic Psych Assessment: alert and oriented, appropriate mood and affect Mallampati: I (soft palate, uvula, fauces, and tonsillar pillars visible) ASA Score: ASA 3 - Patient with moderate systemic disease with functional limitations Relevant Labs: Lab Results Component Value Date CREATININE 0.39 (L) 12/18/2022 EGFR 122 12/18/2022 INR 1.0 01/29/2023 Time and nature of last oral intake: Greater than 8 hours Sedation Plan: Moderate Sedation Immediate reassessment prior to sedation: Patient's status reviewed and vital signs assessed; acceptable to perform procedure and proceed to administer sedation as planned. The patient or designee has a signed a consent that is available in the patient record. 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 Post-Procedure Diagnosis: Same as Pre-Procedure Diagnosis Description of procedure: CT guided bone marrow aspiration and biopsy Performing Provider: Nia Gaines MD Staff Role Susana Cruz Retort Engineer Lori Bates, dealer relationship manager Nurse Nia Gaines MD No role selected Anesthesia: Conscious Sedation Significant Findings: Successful CT guided bone marrow biopsy, right iliac crest Complications: None Estimated Blood Loss: minimal Specimens Removed: 1 x 11g core + bone marrow aspirate submitted to pathology Disposition: Recovery area - Plan for home discharge Medications (Filter: Administrations occurring from 1050 to 1151 on 01/29/23) As of 01/29/23 1151 lidocaine (XYLOCAINE) 1 % injection (mL) Total volume: 5 mL Date/Time Rate/Dose/Volume Action 01/29/23 1139 5 mL Given Final Radiology report with images in PACS to follow. The patient tolerated the procedure well without incident or complication and is in stable condition. 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 Planned Procedure: CT guided bone marrow biopsy History and Physical Update ( H&P completed within the previous thirty days ) I personally reviewed the History and Physical, interviewed and examined the patient prior to surgery. No changes have occurred in the patient's condition since the History and Physical was completed. Allergies: No Known Allergies Past Medical History: Past Medical History: Diagnosis Date Cord compression (CMS/HCC) 11/10/2022 T2-T7 cord compression Vanegas catheter in place 11/10/2022 Hypercholesteremia Hypertension Hypothyroidism Multiple myeloma (CMS/HCC) 2022 Stapled skin wound 2022 thoracic spine Vitamin deficiency Surgical History: Past Surgical History: Procedure Laterality Date CHOLECYSTECTOMY 09/27/1989 SPINAL CORD DECOMPRESSION 11/11/2022 Fusion Decompression T8-T9, T2 tumor removal, T2-T7 spinal cord compression Social History: Social History Socioeconomic History Marital status: Single Spouse name: Not on file Number of children: Not on file Years of education: Not on file Highest education level: Not on file Occupational History Not on file Tobacco Use Smoking status: Never Smokeless tobacco: Never Vaping Use Vaping Use: Never used Substance and Sexual Activity Alcohol use: Yes Alcohol/week: 2.0 standard drinks Types: 2 Cans of beer per week Drug use: Never Sexual activity: Not on file Other Topics Concern Not on file Social History Narrative Not on file Medications: Current Outpatient Medications on File Prior to Encounter Medication Sig Dispense Refill acetaminophen (TYLENOL) 500 mg tablet Take 2 tablets (1,000 mg total) by mouth every 6 (six) hours if needed for mild pain. amLODIPine (NORVASC) 10 mg tablet TAKE 1 TABLET BY MOUTH EVERY DAY (Patient taking differently: Take 1 tablet (10 mg total) by mouth 1 (one) time each day.) 90 tablet 3 atorvastatin (LIPITOR) 10 mg tablet TAKE 1 TABLET BY MOUTH EVERY DAY (Patient taking differently: Take 1 tablet (10 mg total) by mouth 1 (one) time each day.) 90 tablet 3 cholecalciferol (VITAMIN D-3) 1,250 mcg (50,000 unit) capsule Take 1 capsule (50,000 Units total) by mouth 1 (one) time per week. 12 capsule 2 levothyroxine (SYNTHROID, LEVOTHROID) 88 mcg tablet Take 1 tablet (88 mcg total) by mouth 1 (one) time each day. 90 each 3 metoprolol tartrate (LOPRESSOR) 50 mg tablet TAKE 1 TABLET BY MOUTH TWICE A DAY (Patient taking differently: Take 1 tablet (50 mg total) by mouth 2 (two) times a day.) 60 tablet 2 omeprazole (PriLOSEC) [address] capsule TAKE 1 CAPSULE BY MOUTH 1 TIME EACH DAY. DO NOT CRUSH OR CHEW. (Patient taking differently: Take 1 capsule (20 mg total) by mouth 1 (one) time each day.) 90 capsule 1 oxyCODONE (OXY-IR) 5 mg immediate release capsule Take 1 capsule (5 mg total) by mouth every 6 (six) hours if needed for severe pain. Max Daily Amount: 20 mg 12 capsule 0 traZODone (DESYREL) 50 mg tablet Take 1 tablet (50 mg total) by mouth at bedtime as needed for sleep. No current facility-administered medications on file prior to encounter. Directed physical examination: Visit Vitals BP 121/74 Pulse 85 Temp 37.1 C (98.8 F) Resp 16 Constitutional Assessment: No acute distress, resting comfortably HEENT Assessment: Normocephalic, atraumatic Neurological Assessment: Extraocular movements intact, moving all extremities spontaneously Cardiovascular Assessment: Extremities pink and well perfused Pulmonary Assessment: No respiratory distress, symmetric chest rise Abdomen: Nondistended, no voluntary guarding Musculoskeletal Assessment: paraplegic Psych Assessment: alert and oriented, appropriate mood and affect Mallampati: I (soft palate, uvula, fauces, and tonsillar pillars visible) ASA Score: ASA 3 - Patient with moderate systemic disease with functional limitations Relevant Labs: Lab Results Component Value Date CREATININE 0.39 (L) 12/18/2022 EGFR 122 12/18/2022 INR 1.0 01/29/2023 Time and nature of last oral intake: Greater than 8 hours Sedation Plan: Moderate Sedation Immediate reassessment prior to sedation: Patient's status reviewed and vital signs assessed; acceptable to perform procedure and proceed to administer sedation as planned. The patient or designee has a signed a consent that is available in the patient record. Nia Gaines MD [facility] [id number] Miscellaneous Notes* Nursing Notes - Chyna Raymundo RN - 01/06/2023 4:00 PM EDT Risk factors identified:no Physician: Dr. Chad DEE pager # [phone] Peripheral access acceptable for collection: no CVC required for collection: yes Assessed by: Chyna Raymundo RN documented in this encounterU [facility]04[facility]12-[facility] Note* Nursing Notes - Chyna Raymundo RN - 01/06/2023 4:00 PM EDT Risk factors identified:no Physician: Dr. Chad DEE pager # [phone] Peripheral access acceptable for collection: no CVC required for collection: yes Assessed by: Chyna Raymundo RN [facility]04-11-2023 History of Present illness Narrative* Emanuel Guerra MD - 01/05/2023 10:00 AM EDT Images from the original note were not included. RADIATION ONCOLOGY COMPLETION NOTE Patient Name (MRN): Armand Barron ([id number]) Radiation Oncologist: Emanuel Guerra MD : 1955 Date of Service: 01/05/2023 Referring Physician: Renuka Addison MD DIAGNOSIS AND STAGE Myeloma RADIATION TREATMENT DETAILS Treatment site: Thoracic spine Treatment Intent: palliative Radiation Treatments Active Plans T SPINE Most recent treatment: Dose planned: 400 cGy (fraction 4 on 01/04/2023) Total: Dose planned: 2,000 cGy (5 fractions) Elapsed Days: 6 Reference Points T SPINE Most recent treatment: Dose given: 400 cGy (on 01/04/2023) Total: Dose given: 1,600 cGy Elapsed Days: 6 Treatment Status: Completed as planned Technique: 3D conformal HISTORY Armand Barron is a 67 y.o. male with with a diagnosis of multiple myeloma who presented in mid October 2022 with pathologic fractures of T2 and T7 with epidural tumor causing spinal cord compression. I met with him as an inpatient. He underwent thoracic decompression and removal of epidural tumorat T2 and T7 by lamiectomy, facetectomy, and foraminotomy; posterior thoracic fusion C7-T4 on 11/11/22. Initiation of post-operative radiotherapy was delayed due to wound healing issues in infection. He has not started any systemic therapy. CLINICAL COURSE The patient received a course of 20 Dan delivered in 5 fractions to the thoracic spine encompassing T2-T7 (T1-T8). He was treated with a 3D conformal technique with 6 MV and 18 MV photons. He underwent CT simulation for radiotherapy planning on November 30, 2022 and began his radiotherapy course on December 29, 2022. He completes today January 05, 2023. He was treated over 7 elapsed days. He will be following up with Dr. Addison at the [facility] and also has been referred to [facility]. I will plan to check back in with him in one month. FOLLOW-UP Patient will return to radiation oncology for follow-up in 1 month. * Mike Horner RD - 01/05/2023 10:00 AM EDTEncounter addended by: Mike Honrer RD on: 01/05/2023 3:04 PM Actions taken: Clinical Note Signed * Emanuel Guerra MD - 01/05/2023 10:00 AM EDT Images from the original note were not included. RADIATION ONCOLOGY ON TREATMENT VISIT Patient Name (MRN): Armand Barron ([id number]) Staff Physician: Emanuel Guerra MD : 1955 Date of Service: 01/05/2023 RADIATION TREATMENT DETAILS Radiation Treatments Active Reference Points T SPINE Most recent treatment: Dose given: 400 cGy (on 01/05/2023) Total: Dose given: 2,000 cGy Elapsed Days: 7 SUBJECTIVE / OBJECTIVE Completes today. Overall tolerated well. Reports rehab helping. There were no vitals taken for this visit. ASSESSMENT / PLAN Follow-up in one month. Has visit at [facility]. Following with Dr. Addison as well. Toxicity Assessment Treatment Site: (S) Bone (fatigue) Pain Score and Plan of Care Pain Score: 1 Medication Changes No orders of the defined types were placed in this encounter. OTV Summary Radiation Therapy Visit Symptoms within expected range Radiation dose schedule reviewed and remains acceptable Dosimetry plan remains acceptable Radiation technique remains acceptable Films reviewed and remain acceptable Patient setup reviewed and remains acceptable Pain assessed Pain management planned Continue radiation therapy * Mike Horner RD - 01/05/2023 10:00 AM EDT ONCOLOGY NUTRITION F/U: Pt completed rad tx today. Reports he is on a regular diet at [facility] and although he does not like all of the food, he usually eats his entire meal. He is not getting any shakes/protein drinks--but reports that he usually gets a cup of protein-fortified gelatin each AM. ([facility] orders state 30 ml Prosource--assume protein-fortified gelatin is a substitute). He reports he was weighed yesterday at [facility]--156# This represents 12% weight loss in 8 weeks. Plan: Advised pt to request high calorie, high protein drink at [facility] in order to help with healing and prevent further weight loss. (I have left a message for [facility] RDN--awaiting call back) documented in this [place] [address]-10-2023 History of Present illness Narrative* Mike Horner RD - 01/04/2023 10:00 AM EDT ONCOLOGY NUTRITION: MST=2--presumed weight loss. (Unable to weight pt in Rad Onc department as he cannot bear weight. Last known actual weight 11/10 was 178#. Subsequent weights have been stated.) Pt has been at [facility] ([phone])--receiving care for non- healing back wound (s/plaminectomy 11/11) Plan: Telephone call to RDN (Natalya) at [facility] to coordinate care--left message asking her to call me. documented in this [place] [address]-04-2023 History of Present illness Narrative* Sydnee Monge RN - 12/29/2022 11:46 AM EDT Call to pts sister Coty Pool with an update. Pt is here from SNF, arrived via a wheelchair. Dr. Guerra met w/pt and evaluated the pts wound. Dr. Guerra has decided to proceed w/the radiation treatment. Pt is in some discomfort but will try to proceed w/the radiation treatment. Coty currie. documented in this [place] [address]-03-2023 History of Present illness Narrative* Sydnee Monge RN - 12/28/2022 9:42 AM EDT Spoke w/Dr. Guerra re: update on decision for RT. Dr. Gurera would like to have the pt come in [place] evaluation of the wound prior to starting RT. Spoke w/Angeline Cisneros at [facility] and she stated that she did not have transport today but could have the pt at [facility] RT dept tomorrow. Spoke w/Julien Benitez, [facility], and she stated that 12/29/22 at 10:30 would be a good time to have the pt brought in for evaluation. Angeline aware and will make arrangements for the transport. Updated Coty Pool, pt sister, on the above. documented in this encounterBrooke Glen Behavioral [id number] History of Present illness Narrative* Sydnee Monge RN - 12/25/2022 9:54 AM EDT Spoke w/Dr. Tao at [facility], re: when to proceed w/RT. Dr. Tao stated that he gets daily reports from [facility] w/details on the wound being 9cm one day and 12cm another day. He stated that he does not know what this means, nor how they are coming up w/the number. He stated that the pt has been to the hospital for wound management, and is being followed by a wound nurse. Call to [facility] and RACHELE w/Prachi James, nurse manager market intelligence, for update on wound and to see if pt isbeing seen by a wound nurse. 1600: Did not receive any callback from [facility]. Will send to Dr. Guerra for decision on how to proceed. documented in this encounterBrooke Glen Behavioral [id number] History of Present illness Narrative* Sydnee Monge RN - 12/24/2022 8:53 AM EDT Spoke w/Prachi James LPN, [facility] re: pts wound. Prachi stated that when the pts wound was at 9cm on 12/12/22, Dr. Tao had wanted to wait 3 weeks before proceeding w/RT. Now the pts wound is 15-16cm of tunneling. Prachi stated that the SNF is planning on sending the pt to a [facility] hospital for management of the wound. Call to Dr. Tao's office [phone], and re: wound and update on clearing pt to proceed w/RT. documented in this [facility]03-30-2023 History of Present illness Narrative* Sydnee Monge RN - 12/24/2022 8:26 AM EDT Call to pts sister, Coty Pool, , for a update at pt. Coty stated that pts wound not healing well. Pt had a fall during physicial therpay. Coty stated that the called her and statedthat the pt will be transferred to [facility], once they get a referral. Coty is concerned about the wound not healing. Coty asked if a call could be placed to the , Breanne Jose @ [phone]. w/Breanne for an update on pt. Dr. Guerra updated. documented in this [facility]03-30-2023 History of Present illness Narrative* Sydnee Monge RN - 12/24/2022 8:22 AM EDT Call to pts sister and for an update on pt. documented in this [facility]03-30-2023 History of Present illness Narrative* Sydnee Monge RN - 12/24/2022 8:19 AM EDT [facility] w/Angeline Moreau, danielle, and Prachi James LPN, Wound Nurse, re: update on pts condition and update on wound. Will wait for a callback. Will await a callback. documented in this [facility]03-27-2023 History of Present illness Narrative* Sydnee Monge RN - 12/21/2022 4:26 PM EDT Spoke w/Dr. Rodriguez re: Dr. Guerra's pt starting RT in the presence of tunneling thoracic wound. Dr. Rodriguez asked to wait until Dr. Guerra returns next week. Call to pts sister Coty Pool and updated her on the decision to wait until Dr. Guerra returns. Will update Dr. Guerra on the above. documented in this [facility]03-27-2023 History of Present illness Narrative* Sydnee Monge RN - 12/21/2022 3:31 PM EDT Rcvd call from pts sister, Coty Pool, re: when to start radiation therapy. Coty was told by Dr. Tao that pt can start RT. Pt is in a SNF and has a tunneling wound from a seroma in the thoracic spine surgical site with packing, changed twice weekly. Dr. Tao feels pt is OK to have RT. Dr. Guerra is not in the office this week and will defer decision to Dr. Rodriguez. documented in this [place] [id number] History of Present illness Narrative* Sydnee Monge RN - 12/21/2022 2:05 PM EDT Rcvd call from pts sister w/an update on pt's condition. Pt was sent to hospital for re-packing of the wound in the thoracic spine. She wanted to make sure that the pt was not going to fall through the cracks in regards to radiation. Call to [facility] SNF and spoke w/Dir Rafa of Nursing. He stated that they have the dressings orders for the pt and to speak w/ the neurosurgeon, Dr. Tao, office for information about clearance for radiation. Call to Dr. Tao's office and spoke w/Lesley [phone]. Reiterated the above and she will message Dr. Tao. Will await a callback. documented in this encounterBrooke Glen Behavioral [id number] History of Present illness Narrative* Leyla Pedroza RN - 12/19/2022 4:15 PM EDT Goals: Problem: Health Behavior: Goal: Patient Specific Outcome Outcome: Adequate for Discharge Goal: Patient Specific Outcome Outcome: Adequate for Discharge Goal: Patient Specific Outcome Outcome: Adequate for Discharge Problem: Skin Integrity: Goal: Will not develop new pressure injury Outcome: Adequate for Discharge Goal: Skin integrity will improve Outcome: Adequate for Discharge Goal: Risk for impaired skin integrity will decrease Outcome: Adequate for Discharge Problem: Activity: Goal: Mobility will improve Outcome: Adequate for Discharge Problem: Cognitive: Goal: Understanding of ways to prevent future skin breakdown will improve Outcome: Adequate for Discharge Problem: Nutritional: Goal: Nutritional status will improve Outcome: Adequate for Discharge Problem: Cognitive: Goal: Last Known Fall Outcome: Adequate for Discharge Goal: Mobility requiring assistance of person or device Outcome: Adequate for Discharge Goal: Dizziness Outcome: Adequate for Discharge Goal: Medications Outcome: Adequate for Discharge Goal: Mental Status/LOC/Awareness Outcome: Adequate for Discharge Goal: Toileting Needs Outcome: Adequate for Discharge Goal: Volume and Electrolyte Status Outcome: Adequate for Discharge Goal: Communication/Sensory Outcome: Adequate for Discharge Goal: Behavior Outcome: Adequate for Discharge Problem: PT Short Term Goals Goal: PT STG 1 Outcome: Adequate for Discharge Goal: PT STG 2 Outcome: Adequate for Discharge Problem: PT Director Of Design Goals Goal: PT LTG 1 Outcome: Adequate for Discharge Goal: PT LTG 2 Outcome: Adequate for Discharge Goal: PT LTG 3 Outcome: Adequate for Discharge Identify possible barriers to meeting goals/advancing plan of care: No barriers identified at this time Stability of the patient: Moderately Stable - Low risk of patient condition declining or worsening End of Shift Summary: Patient discharging, return to [facility]. * Leyla Pedroza RN - 12/19/2022 4:10 PM EDT Patient has a discharge order. Assessment unchanged from previously documented assessment. VS stable. Plan is to return to [facility]. Per MD patient will keep Vanegas at this time. Report called to Mel at [place] [facility], no further questions at this time. Peripheral IV removed with cath intact. Report given to [facility] staff. Care transferred. * Marcela Jha RN - 12/19/2022 9:48 AM EDT 12/19/22 0947 Discharge Planning Final Discharge Disposition [facility] ([facility]) Does the patient need discharge transport arranged? Yes Has discharge transport been arranged? Yes ([facility]) What day is the transport expected? 12/19/22 What time is the transport expected? 1300 Discharge packet compiled and phone number to call report given to nurse caring for patient. Reminded nurse to print and include Healthcare Facility AVS and Transfer Record in discharge packet along with any prescriptions. Attending physician Heather Sandoval MD is aware and in agreement with discharge plan. Patient. Family (Johnnie and Coty) and facility notified of discharge and transport time. 1100 Discharge pickup time changed to 1600. * Will Frank PT - 12/18/2022 1:50 PM EDT Physical Therapy Physical Therapy Evaluation Subjective PT Start Time: 1350 PT Stop Time: 1412 PT Time Calculation (min): 22 min Subjective: Pt reports he was receiving assistance for all mobility at rehab and was close to beginstanding attempts with physical therapy. 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) Multiple myeloma not having achieved remission (CMS/HCC) Infected wound Past Medical History: Diagnosis Date Cord compression (CMS/HCC) 11/10/2022 T2-T7 cord compression Vanegas catheter in place 11/10/2022 Hypercholesteremia Hypertension Hypothyroidism Multiple myeloma (CMS/HCC) 2022 Stapled skin wound 2022 thoracic spine Vitamin deficiency Past Surgical History: Procedure Laterality Date CHOLECYSTECTOMY 09/27/1989 SPINAL CORD DECOMPRESSION 11/11/2022 Fusion Decompression T8-T9, T2 tumor removal, T2-T7 spinal cord compression Vitals/Pain: Pain Assessment Pain Assessment: 0-10 Pain Score: 6 Pain Type: Acute pain Pain Location: Back Pain Interventions: Repositioned Response to Interventions: No change; tolerable per pt Objective General Visit Information: Precautions: Precautions Medical Precautions: Fall Risk Safety Interventions: Call lock within reach, ID band on, Bed alarm, Chair alarm, Side rails up x2,Gait belt Orthopedic Precautions: Cervical Precautions Cognition: Cognition Arousal/Alertness: Appropriate responses to stimuli Orientation Level: Oriented X4 Following Commands: Follows all commands and directions without difficulty Home Living: Home Living Type of Home: Apartment Lives With: Alone Home Layout: One level, Other (Comment) (2nd floor apartment) Home Access: Stairs to enter with rails Entrance Stairs-Number of Steps: 15 Prior Level of Function: Prior Function Level of Long: Independent with mobility and functional transfers, Other (Comment) (Prior to his spinal surgery in 11/19) Which is your dominant hand?: Right Prior Function Comments: Prior to his spinal surgery in 11/19 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; since his surgery pt has required assistance from SNF staff for all mobility General Assessments: Activity Tolerance Endurance: Tolerates 10 - 20 min exercise with multiple rests Sensation Light Touch: No apparent deficits Proprioception Proprioception: No apparent deficits Perception Inattention/Neglect: Appears intact Initiation: Appears intact Motor Planning: Appears intact Coordination Coordination: Impaired Coordination and Movement Description: Severely impaired B LE coordination Static Sitting Balance Static Sitting-Level of Assistance: Not attempted, environmental limitations Dynamic Sitting Balance Dynamic Sitting-Level of Assistance: Not attempted, environmental limitations Static Standing Balance Static Standing-Level of Assistance: Not attempted, medical/safety concerns Dynamic Standing Balance Dynamic Standing-Level of Assistance: Not attempted, medical/safety concerns Functional Assessments: Bed Mobility Rolling Left and Right Assistance: Moderate assistance, Moderate verbal cues Lying to Sitting Assistance: Maximum assistance, Moderate verbal cues Transfers Sit to Stand Assistance: Not attempted, medical/safety concerns Ambulation Walking Assistance: Not attempted, medical/safety concerns Extremity Assessments: RUE Assessment RUE Assessment: Within Functional Limits LUE Assessment LUE Assessment: Within Functional Limits RLE Assessment RLE Assessment: Impaired LLE Assessment LLE Assessment: Impaired Additional Assessments/Tests: Additional Assessments/Tests Additional Assessment/Test #1: MMT B UE's grossly 4+/5 Additional Assessment/Test #2: MMT B LE grossly 2-/5 Treatment performed during evaluation: None performed Therapeutic Activity Therapeutic Activity Time Entry: 10 Therapeutic Activity 1: Bed mobility training Therapeutic Activity 2: Education re: cervical/thoracic spine precautions, posture, body mechanics,pain control, safety with mobility, activity progression, benefits of rehab/mobility, skin breakdown prevention None performed Assessment/Plan Pt cleared for therapy by RN. Limited PT won completed this date as pt became incontinent during assessment/bed mobility and requested to be placed on the bed ortiz and requested extended time to complete his bowel movement. Pt requires Mod/Max A for bed mobility. He demonstrates significant B LE weakness (grossly 2-/5) and is unsafe to attempt standing activity at this time. RN and VASC TECH assisted PT with personal hygiene for pt. Pt placed on bed ortiz with VASC TECH present upon PT departure. DC: SNF for continued skilled PT to address his strength and fxl deficits in order to promote safety and independence with fxl mobility so he can return to his PLOF and return to living alone/independently Physical Therapy Assessment AM-PAC 6 Clicks Scoring Form: Unable: 1 A Lot: 2 A Little: 3 None: 4 How much difficulty does the patient currently have? Turning over in bed (including adjustment of bedclothes, sheets, and blankets) [] [x] [] [] Sitting down on and standing up from a chair with arms (wheelchair, bedside commode etc [x] [] [] [] Moving from lying on back to sitting on the side of the bed [] [x] [] [] How much help from another person does the patient currently need? Moving to and from a bed to a chair ( including a wheelchair) [x] [] [] [] To walk in hospital room [x] [] [] [] Climbing 3-5 steps with a railing [x] [] [] [] Score: 05/20 PT Assessment PT Assessment/ Barriers to discharge: Decreased strength, Decreased range of motion, Decreased endurance, Impaired balance, Impaired gait, Decreased mobility, Decreased coordination, Decreased skin integrity, Orthopedic restrictions, Pain Prognosis: Fair Evaluation/Treatment Tolerance: Other (Comment) Comments: PT eval limited secondary to pt having a bowel movement during bed mobility assessment/training; required placement on bed ortiz for further bowel movement Medical Staff Made Aware: Yes Comments: RN and VASC TECH present to assist with placing on bed ortiz Plan Treatment/Interventions: ADL retraining, Functional transfer training, LE strengthening/ROM, Endurance training, Patient/family training, Equipment eval/education, Bed mobility, Gait training, Compensatory technique education, Continued evaluation, Balance training PT Plan: Skilled PT PT Frequency: 5 days per week PT Duration of Sessions: PRN PT Treatments per day: PRN PT Discharge Recommendations: half-way facility placement (Return to same SNF) Equipment Recommended: Defer to next level of care PT - Evaluation Status: Complete PT Goals: Encounter Problems Encounter Problems (Active) Template: Physical Therapy Problem: PT Senior Living Goals Dates: Start: 12/18/22 Goal: PT LTG 1 Dates: Start: 12/18/22 Expected End: 01/01/23 Description: Pt will complete supine and seated LE therapeutic exercises x 20 reps with Min A for ROM to improve B LE strength. Goal: PT LTG 2 Dates: Start: 12/18/22 Expected End: 01/01/23 Description: Pt will perform STS transfers with FWW and Min A. Goal: PT LTG 3 Dates: Start: 12/18/22 Expected End: 01/01/23 Description: Pt will tolerate 5 mins of static and dynamic balance training and pre-gait training with B UE support on FWW to improve standing balance and prepare for ambulation/gait training. Problem: PT Short Term Goals Dates: Start: 12/18/22 Goal: PT STG 1 Dates: Start: 12/18/22 Expected End: 12/25/22 Description: Pt will perform proper log roll with Min A. Goal: PT STG 2 Dates: Start: 12/18/22 Expected End: 12/25/22 Description: Pt will sit EOB x 5 mins with SUP to improve sitting balance and posture in order to prepare for standing activity. Encounter Problems (Resolved) There are no resolved problems. * Sophia Miller RN - 12/18/2022 12:57 PM EDT Pastor Note: Orientation: alert and oriented to person, place, and time Patient Directives: Patient A&O, no HCPOA / no Living Will Patient Next of Kin / Surrogate Decision Maker is Sibling/s Mj Does the patient want anyone to be contacted?: Yes Insurance provider confirmed from chart: Yes and was correct Confirmed PCP: Salena Flores, AP[employer] Yes and was correct [facility]acy: [facility] when not in SNF [x] Yes and Confirmed Patient is able to afford medications Living Situation: Patient admitted from: [facility] Facility (SNF): [facility] Patient resides: 2 story home Address confirmed from chart: Yes and was correct Patient lives: Alone Is Patient a Readmission?: Yes, Patient is a Readmission: Readmission Assessment: 1. Do you remember reviewing the discharge instructions the last time you were here? Yes but went to a SNF for rehab and care 2. How confident were you to use those instructions at home? N/A went to SNF 3. Were you educated about your condition prior to leaving the hospital last time? Yes 4. Are you having any problems taking your medications? No Facility administers 5. When was the last time you saw your Primary Care Provider? Prior to SNF admission 6. Did you have a follow up appointment scheduled prior to discharge? N/A Went to SNF 7. Were you able to go to this appointment? N/A 8. Does anyone regularly help you manage your condition (medications, appointments, diet, ect.)? No Readmission Reason: Worsening symptoms Root Cause Analysis: What brought the patient back to the hospital? Medical What could have been done to prevent the readmission? Wound care at SNF Patient was readmitted from: [facility] Facility (SNF): [facility] Social Influencers of Health: Assessments Needed for Discharge: Patient will require therapy assessments and updates Anticipated Needs at Discharge: Admitted: 12/17/2022 SIMIN: 12/18/22 A) Return to [facility] B) Another SNF Barrier to discharge: precert Decision maker: self Pre-cert Needed Yes Pending, started on: 12/18 Transport: Will need Ambulance Case Management Narrative: Updated by attending this morning that patient was cleared to return to [facility] once wound RN is done with wound. States that she will complete the discharge order and instructions. Patient has been out of the facility less than 24 hrs and is OBS status with a discharge order in place. Called facility regarding his return and admissions states that he is unable to return until another precert is obtained. States they also will need PT/OT notes for precert. Patient does not have OT orders, these are added however OT will be unable to see until the weekend. PT states they will see this afternoon. The patient was pushed back due to the discharge order being in place. RN/CM sent discharge order, discharge clinicals and progress note to [facility] for review. Updated them that patient is ready to return. Patient placed on will call with [facility]. 1455: Discussed case with Car Oiler Vida Vicente. No OT ordered as patient has dc order and does not need OT. Patient's skilled needs are PT and wound care. Requested facility expedite precert. He will be remaining in OBS status, not admitted as inpatient. PT did work with patient today but session was short due to patient needing to use bed ortiz. Sophia MONROE child adolescent psychiatrist [phone] or secure chat * Heather Sandoval MD - 12/18/2022 11:56 AM EDT Images from the original note were not included. Progress Note Chief Complaint/Visit Reason: Wound dehiscence Impression: Armand Barron is a 67 y.o. male with a history of multiple myeloma who underwent thoracic decompression and removal of T2 and T7 epidural tumor by laminectomy, facetectomy, and foraminotomy as well as posterior thoracic fusion of C7-T4 by screw fixation on 11/11/[address] Tao. Since that time the patient has had some issue with draining of a seroma and wound dehiscence. The neurosurgical team requested the patient come back to the hospital for further evaluation. No antibiotics were started.Wound care consulted. Packing was removed and he was found to have tracking undermining the wound, 13 cm distally and 8 cm proximally. Packing placed. Alginate placed which can stay for 7 days. Site was covered with foam dressing. Can replace as needed for saturation. Minimal tape on skin. Dressingand packing should be done every Wednesday and Wednesday. Diagnoses: Wound [id number] evidence of infection or sepsis History of multiple myeloma History of hypertension Status post thoracic decompression and removal of T2-T7 epidural tumor by laminectomy, facetectomy,and foraminotomy as well as posterior thoracic fusion of C7-T4 by screw fixation on 11/11/[address] Tao. Plan: Neurosurgery consulted. Okay with patient returning back to rehab No indications for antibiotics or cultures at this time Physical therapy Wound Plan: Dressing/packing changes to the surgical incision on this fellow upper back to be done every and Wed to tx and manage drainage from lengthy seroma: Remove packing from both the distal and the proximal aspect of this undermining that runs directly perpendicular to the surgical incision which has healed except for a 1 cm diam open are in the proximal third, irrigate copiously usingNS in a syringe then using the packing and a foam tip swab pack the 13 cm undermined area that runsdistally and the 8 cm undermining that runs proximal. This may stay in place as it lays down Ag forup to 7 days. Cover site with a foam dressing, may replace prn saturation, minimal tape on skin please. Vanegas: Chronically in place since surgery. Order to exchange patient's Vanegas as current Vanegas has been in place since recent surgery CVC: N/A DVT prophylaxis: Lovenox Code Status: Full Disposition: Cleared to return to rehab. Discussed with case management Heather Sandoval MD [facility] ([facility]) Subjective: No pain. Having bowel movements. Tolerating diet. No fever, chills, sweats. Slept okay. Patient has been progressing with therapy. He is not walking yet at the facility. This is a goal ofhis. Review of Systems All other systems reviewed and are negative. Vitals and Physical exam: Patient Vitals for the past 24 hrs: BP Temp Temp src Pulse Resp SpO2 Height Weight 12/18/22 1156 99/58 36.7 C (98.1 F) Oral 62 -- 97 % -- -- 12/18/22 0948 112/70 37 C (98.6 F) Oral 71 16 95 % -- -- 12/18/22 0345 114/64 37.2 C (99 F) Oral 59 -- 97 % -- -- 12/18/22 0040 121/71 36.8 C (98.2 F) Oral 76 -- 99 % -- -- 12/17/22 2356 -- -- -- 79 15 99 % -- -- 12/17/22 2355 122/75 -- -- 79 15 -- -- -- 12/17/22 2000 120/66 -- -- 94 16 95 % -- -- 12/17/22 1600 123/74 -- -- 96 24 95 % -- -- 12/17/22 1400 120/73 -- -- 91 17 97 % -- -- 12/17/22 1339 -- -- -- -- -- -- 1.651 m (65) 72.6 kg (160 lb) 12/17/22 1338 125/80 37.2 C (98.9 F) Oral 91 16 99 % -- -- Body mass index is 26.63 kg/m . Intake/Output Summary (Last 24 hours) at 12/18/2022 1157 Last data filed at 12/18/2022 0948 Gross per 24 hour Intake -- Output 500 ml Net -500 ml Physical Exam Vitals and nursing note reviewed. Constitutional: Appearance: Normal appearance. He is normal weight. Comments: Having wound care examine his back currently. Answers questions appropriately. Follows commands. HENT: Head: Normocephalic and atraumatic. Mouth/Throat: Mouth: Mucous membranes are moist. Eyes: Extraocular Movements: Extraocular movements intact. Cardiovascular: Rate and Rhythm: Normal rate and regular rhythm. Pulmonary: Effort: Pulmonary effort is normal. Breath sounds: Normal breath sounds. Abdominal: General: Abdomen is flat. Bowel sounds are normal. Palpations: Abdomen is soft. Skin: General: Skin is warm and dry. Neurological: General: No focal deficit present. Mental Status: He is alert and oriented to person, place, and time. Mental status is at baseline. Psychiatric: Mood and Affect: Mood normal. Behavior: Behavior normal. Recent Lab Results: Results from last 7 days Lab Units 12/18/22 0430 12/17/22 1443 SODIUM mmol/L 133* 134* POTASSIUM mmol/L 3.7 3.8 CHLORIDE mmol/L 98 96* CO2 mmol/L 28 29 BUN mg/dL 12 15 CREATININE mg/dL 0.39* 0.43* Results from last 7 days Lab Units 12/18/22 0430 12/17/22 1443 WBC AUTO K/mcL 7.8 7.5 HEMOGLOBIN g/dL 8.9* 10.4* HEMATOCRIT % 28.7* 33.4* PLATELETS K/mcL 317 357 MCV FL 90.5 90.8 Recent Imaging Findings: XR Abdomen 1 View Narrative: EXAMINATION TYPE: XR ABDOMEN 1 VIEW DATE OF EXAM : 12/09/2022 12:04 PM HISTORY: abd distention COMPARISON: 11/14/2012 FINDINGS: Nonobstructive bowel gas pattern. Moderate to large amount of stool throughout the colon and in therectum. Surgical clip in the right upper quadrant. Impression: Constipation. -------- FINAL REPORT -------- Dictated By: Pierre Bhat Dictated Date: 12/09/2022 12:43 Assigned Physician: Pierre Bhat Reviewed and Electronically Signed By: Pierre Bhat Signed Date: 12/09/2022 12:44 Workstation ID: [id number] Transcribed By: Self Edit Transcribed Date: 12/09/2022 12:43 Allergies: No Known Allergies * Sophia Miller RN - 12/18/2022 10:56 AM EDT Images from the original note were not included. [place] Case Management Department [facility] Transportation Request Please remember that EMS Crew can take a maximum of two bags of patient belonging. Also DME such asWheelchairs, Bedside commodes, and other large pieces of equipment cannot travel in the ambulance due to patient and crew safety. Insurance Alert: Patients that have a managed Medicare plan will be contacted about paying a deposit for transportation via Ambulance. Please let the patient know that Ambulance Transport is not covered at 100%. There will be an out of pocket expense for ambulance transport. The deposit for transport is $200.00. This deposit is refundable pending insurance payment for transport. Transportation Type: Ambulance Requesting Staff Members Call Back Number: [phone] Requesting Hospital: [facility] [id number] Attending Provider: Armand Jay DO Patient Name: Last, First: Armand Barron : 1955 Patient Weight: 72.6 kg (160 lb) Primary Insurance: Payor: [employer] / Plan: MEDICAL MUTUAL SUPERMED / Product Type: *No Product type* / Code Status: Full Code - Default Destination Type: ECF/SNF/ASSISTED LIVING - RETURN For Private Residence Only! Accessibility into the residence! For Private Residence Only! Caregiver who will be at residence! Destination: Private Residence and Other are listed in this list. [facility] [place] [address] Requested Associate Professor Computer Science Date and Time: TODAY - TIME:1300 Equipment: No Equipment VENT BIPAP SETTING If patient is not on Vent BIPAP this section will automatically be blank. Isolation Precautions: There are no current isolations documented for this patient. Medical Necessity for Ambulance: Severe Weakness due to:Severe Weakness due to:T7 Pathologic Compression Fracture and Unable to maintain safe sitting position for length of transport due to:T7 Pathologic Compression Fracture and Unhealed Wound to Post-op Wound Complication with wound dehisence and tunneling Reason For Visit: Chief Complaint Patient presents with Post-op Problem States cervical fusion in 10/[address] Tao. Has been having increased drainage from cervical incision for the last 2 weeks. Had an MRI that showed increased tunneling and drainage from incision Past Medical History: has a past medical history of Cord compression (CMS/HCC) (11/10/2022), Vanegas catheter in place (11/10/2022), Hypercholesteremia, Hypertension, Hypothyroidism, Multiple myeloma (CMS/HCC) (2022), Stapled skin wound (2022), and Vitamin deficiency. Other Important Information: * Josef Judd MD - 12/17/2022 1:30 PM EDT Chief Complaint Patient presents with Post-op Problem States cervical fusion in 10/[address] Tao. Has been having increased drainage from cervical incision for the last 2 weeks. Had an MRI that showed increased tunneling and drainage from incision History of Present Illness: Armand Barron is a 67 y.o. male presents to the emergency department at the direction of his neurosurgeon to be hospitalized for possible ongoing wound infection. Patientstates he had cervical fusion back in October with Dr. Tao. Since then has had increased drainagefrom his incision. Has been packed at his care facility. He has no other complaints at this time. Review of External Record -: Yes: Inpatient record Discharge summary from 12/09/2022 reviewed. 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) Multiple myeloma not having achieved remission (CMS/HCC) Infected wound Past Medical History: Diagnosis Date Cord compression (CMS/HCC) 11/10/2022 T2-T7 cord compression Vanegas catheter in place 11/10/2022 Hypercholesteremia Hypertension Hypothyroidism Multiple myeloma (CMS/HCC) 2022 Stapled skin wound 2022 thoracic spine Vitamin deficiency Past Surgical History: Procedure Laterality Date CHOLECYSTECTOMY 09/27/1989 SPINAL CORD DECOMPRESSION 11/11/2022 Fusion Decompression T8-T9, T2 tumor removal, T2-T7 spinal cord compression No Known Allergies Family History Problem Relation Name Age of Onset Other (hypertensive disorder) Mother Other (malignant lymphoma) Mother Malig Hypertension Mother Other (hypertensive disorder) Father Other (hypertensive disorder) Brother SOCIAL HISTORY: Social History Tobacco Use Smoking status: Never Smokeless tobacco: Never Substance Use Topics Alcohol use: Yes Alcohol/week: 2.0 standard drinks Types: 2 Cans of beer per week Social History Social History Narrative Not on file REVIEW OF SYSTEMS: Otherwise as per HPI. All other systems reviewed and negative unless otherwise noted above. PHYSICAL EXAM: ED Triage Vitals [12/17/22 1338] Temp Heart Rate Resp BP 37.2 C (98.9 F) 91 16 125/80 SpO2 Temp Source Heart Rate Source Patient Position 99 % Oral -- -- BP Location FiO2 (%) -- -- CONSTITUTIONAL: Well appearing, no apparent distress EYES: Pupils are equally round and reactive to light. There is no evidence of conjunctival pallor. HENT: Mucous membranes moist. Oropharynx unremarkable. CARDIOVASCULAR: Heart is regular, no murmurs. Good peripheral pulses. PULMONARY/CHEST: Lungs are clear to auscultation bilaterally. No signs of respiratory distress. ABDOMINAL: Soft, nontender, nondistended. Back: Large incision noted over the cervical thoracic spine. Open areas of the wound are packed. Serous drainage noted : deferred MUSCULOSKELETAL: No deformities. No pedal edema. NEURO: The patient is AAOx3. SKIN: Warm, well perfused. No acute rashes. PSYCH: Normal affect. ED STUDIES: Labs Reviewed CBC AND DIFFERENTIAL Narrative: The following orders were created for panel order CBC and differential. Procedure Abnormality Status --------- ------ CBC auto differential[[id number]] In process Please view results for these tests on the individual orders. BASIC METABOLIC PANEL CBC WITH AUTO DIFFERENTIAL No orders to display ED COURSE: Vitals: 12/17/22 1338 12/17/22 1339 12/17/22 1400 BP: 125/80 120/73 Pulse: 91 91 Resp: 16 17 Temp: 37.2 C (98.9 F) TempSrc: Oral SpO2: 99% 97% Weight: 72.6 kg (160 lb) Height: 1.651 m (65) Medications - No data to display Clinical Impressions as of 12/17/22 1504 Surgical site infection In summary, Armand Barron is a 67 y.o. male presents with concerns for surgical site infection from his recent spinal surgery. Upon arrival hemodynamically stable afebrile. Differential diagnose includes not limited to: Surgical site infection, sepsis, cellulitis, seroma. Discussed with neurosurgery who will see and evaluate patient here in the emergency department. They are requesting hospitalist to admit at this time. Discussed with hospitalist who agreed to take the patient for further evaluation and treatment. Basic laboratory evaluation was obtained however it is currently pending at the time of hospitalization. CT scan of the cervical spine thoracic spine was considered however at the direction of neurosurgery this is not needed at this time. He will be hospitalized for ongoing evaluation treatment and remained stable while in the emergency department. DIAGNOSTIC IMPRESSION: 1. Surgical site infection DISPOSITION: Admit To Inpatient PDMP Reviewed by: on ED Prescriptions None Josef Judd MD 12/17/22 1504 documented in this encounterBro[facility] [id number] Hospital course Narrative* Heather Sandoval MD - 12/19/2022 10:45 AM EDT Images from the original note were not included. Discharge Summary Admission Date: 12/17/2022 Discharge Date: 12/19/2022 Admitting Provider: [facility] ([facility]) Primary Care Physician at Discharge: Salena Flores NP Discharge Disposition To SNF Patient condition on discharge Stable Hospital Course Armand Barron is a 67 y.o. male with a history of multiple myeloma who underwent thoracic decompression and removal of T2 and T7 epidural tumor by laminectomy, facetectomy, and foraminotomy as well as posterior thoracic fusion of C7-T4 by screw fixation on 11/11/[address] Tao. Since that time the patient has had some issue with draining of a seroma and wound dehiscence. The neurosurgical team requested the patient come back to the hospital for further evaluation. No antibiotics were started.Wound care consulted. Packing was removed and he was found to have tracking undermining the wound, 13 cm distally and 8 cm proximally. Packing placed. Silver placed which can stay for 7 days. Site was covered with foam dressing. Can replace as needed for saturation. Minimal tape on skin. Dressing and packing should be done every Wednesday and Wednesday. Neurosurgery agreed no active infection. No antibiotics needed. Patient can return to [facility] for wound care and aggressive therapy. Patient came to hospital with Vanegas catheter in. He will return to facility with Vanegas catheter. Updated his sister at bedside on 12/19/2022 Wound Plan: Dressing/packing changes to the surgical incision on this fellow upper back to be done every and Wed to tx and manage drainage from lengthy seroma: Remove packing from both the distal and the proximal aspect of this undermining that runs directly perpendicular to the surgical incision which has healed except for a 1 cm diam open are in the proximal third, irrigate copiously usingNS in a syringe then using the packing and a foam tip swab pack the 13 cm undermined area that runsdistally and the 8 cm undermining that runs proximal. This may stay in place as it lays down Ag forup to 7 days. Cover site with a foam dressing, may replace prn saturation, minimal tape on skin please. Discharge Final Diagnosis Wound [id number] evidence of infection or sepsis History of multiple myeloma History of hypertension Status post thoracic decompression and removal of T2-T7 epidural tumor by laminectomy, facetectomy,and foraminotomy as well as posterior thoracic fusion of C7-T4 by screw fixation on 11/11/[address] Tao. Discharge Medication List Your medication list CHANGE how you take these medications Instructions Last Dose Given Next Dose Due omeprazole [address] capsule Commonly known as: PriLOSEC What changed: additional instructions TAKE 1 CAPSULE BY MOUTH 1 TIME EACH DAY. DO NOT CRUSH OR CHEW. CONTINUE taking these medications Instructions Last Dose Given Next Dose Due acetaminophen 500 mg tablet Commonly known as: TYLENOL Take 2 tablets (1,000 mg total) by mouth every 6 (six) hours if needed for mild pain. amLODIPine 10 mg tablet Commonly known as: NORVASC TAKE 1 TABLET BY MOUTH EVERY DAY atorvastatin 10 mg tablet Commonly known as: LIPITOR TAKE 1 TABLET BY MOUTH EVERY DAY cholecalciferol 1,250 mcg (50,000 unit) capsule Commonly known as: VITAMIN D-3 Take 1 capsule (50,000 Units total) by mouth 1 (one) time per week. enoxaparin 40 mg/0.4 mL syringe Commonly known as: LOVENOX Inject 0.4 mL (40 mg total) under the skin 1 (one) time each day for 14 days. levothyroxine 88 mcg tablet Commonly known as: SYNTHROID, LEVOTHROID Take 1 tablet (88 mcg total) by mouth 1 (one) time each day. melatonin 3 mg tablet Take 2 tablets (6 mg total) by mouth at bedtime. metoprolol tartrate 50 mg tablet Commonly known as: LOPRESSOR TAKE 1 TABLET BY MOUTH TWICE A DAY oxyCODONE 5 mg immediate release capsule Commonly known as: OXY-IR Take 1 capsule (5 mg total) by mouth every 6 (six) hours if needed for severe pain. Max Daily Amount: 20 mg polyethylene glycol 17 gram packet Commonly known as: MIRALAX Take 17 g by mouth 1 (one) time each day for 7 days. Can hold for loose stools. senna 8.6 mg tablet Commonly known as: SENOKOT Take 1 tablet (8.6 mg total) by mouth 2 (two) times a day. traZODone 50 mg tablet Commonly known as: DESYREL Take 1 tablet (50 mg total) by mouth at bedtime as needed for sleep. STOP taking these medications senna-docusate 8.6-50 mg per tablet Commonly known as: PERICOLACE Where to Get Your Medications These medications were sent to [facility]/pharmacy #[id number] - [place] [address] [address] AT [address], [facility] [id number] Hours: 24-hours senna 8.6 mg tablet You can get these medications from any pharmacy Bring a paper prescription for each of these medications oxyCODONE 5 mg immediate release capsule Information about where to get these medications is not yet available Ask your nurse or doctor about these medications polyethylene glycol 17 gram packet Code Status at Discharge: Full Code - Default Outpatient Follow-Up Scheduled Future Appointments Provider Specialty Dept Phone Center 12/21/2022 10:00 AM Ric Rodriguez MD; [facility] Radiation Oncology [phone] [facility] 12/22/2022 10:00 AM Ric Rodriguez MD; [facility] [place] Radiation Oncology [phone] [facility] 12/23/2022 10:00 AM [facility] Radiation Oncology [phone] [facility] 12/24/2022 10:00 AM [facility] Radiation Oncology [phone] [facility] 12/25/2022 10:00 AM Ric Rodriguez MD; [facility] [place] [facility] Radiation Oncology [phone] [facility] 01/28/2023 8:30 AM (Arrive by 8:15 AM) Salena Flores NP Family Medicine [phone] [facility] [place] [facility] Post discharge care Destination [facility] ([place]) Service: [facility] [address] [facility] [phone] Vitals and Physical Exam Patient Vitals for the past 24 hrs: BP Temp Temp src Pulse SpO2 12/19/22 0750 109/65 37 C (98.6 F) Oral 75 95 % 12/19/22 0452 108/66 36.7 C (98.1 F) Oral 75 94 % 12/18/22 2359 104/65 36.7 C (98.1 F) Oral 71 96 % 12/18/22 1947 111/69 36.8 C (98.2 F) Oral 81 96 % 12/18/22 1549 110/62 37.2 C (99 F) Oral 76 95 % 12/18/22 1156 99/58 36.7 C (98.1 F) Oral 62 97 % Physical Exam Constitutional: Appearance: Normal appearance. He is normal weight. Comments: Answers questions appropriately. Follows commands. HENT: Head: Normocephalic and atraumatic. Mouth/Throat: Mouth: Mucous membranes are moist. Eyes: Extraocular Movements: Extraocular movements intact. Cardiovascular: Rate and Rhythm: Normal rate and regular rhythm. Pulmonary: Effort: Pulmonary effort is normal. Breath sounds: Normal breath sounds. Abdominal: General: Abdomen is flat. Bowel sounds are normal. Palpations: Abdomen is soft. Skin: General: Skin is warm and dry. Upper back midline wound covered by gauze. Gauze is completely saturated. Asking nursing staff to change gauze prior to his returning to [facility]. Neurological: General: No focal deficit present. Mental Status: He is alert and oriented to person, place, and time. Mental status is at baseline. Psychiatric: Mood and Affect: Mood normal. Behavior: Behavior normal. Recent Lab Results Results from last 7 days Lab Units 12/18/22 0430 12/17/22 1443 SODIUM mmol/L 133* 134* POTASSIUM mmol/L 3.7 3.8 CHLORIDE mmol/L 98 96* CO2 mmol/L 28 29 BUN mg/dL 12 15 CREATININE mg/dL 0.39* 0.43* Results from last 7 days Lab Units 12/18/22 0430 12/17/22 1443 WBC AUTO K/mcL 7.8 7.5 HEMOGLOBIN g/dL 8.9* 10.4* HEMATOCRIT % 28.7* 33.4* PLATELETS K/mcL 317 357 MCV FL 90.5 90.8 Recent Imaging findings XR Abdomen 1 View Narrative: EXAMINATION TYPE: XR ABDOMEN 1 VIEW DATE OF EXAM : 12/09/2022 12:04 PM HISTORY: abd distention COMPARISON: 11/14/2012 FINDINGS: Nonobstructive bowel gas pattern. Moderate to large amount of stool throughout the colon and in therectum. Surgical clip in the right upper quadrant. Impression: Constipation. -------- FINAL REPORT -------- Dictated By: Pierre Bhat Dictated Date: 12/09/2022 12:43 Assigned Physician: Pierre Bhat Reviewed and Electronically Signed By: Pierre Bhat Signed Date: 12/09/2022 12:44 Workstation ID: [id number] Transcribed By: Self Edit Transcribed Date: 12/09/2022 12:43 Time preparing discharge and coordination of care 40 minutes Heather Sandoval MD [facility] ([facility]) * Edyta Quezada RN - 12/18/2022 11:31 AM EDT Dressing/packing changes to the surgical incision on this fellow upper back to be done every Tues and Fri to tx and manage drainage from lengthy seroma: Remove packing from both the distal and the proximal aspect of this undermining that runs directly perpendicular to the surgical incision which has healed except for a 1 cm diam open are in the proximal third, irrigate copiously using NS in a syringe then using the packing and a foam tip swab pack the 13 cm undermined area that runs distally and the 8 cm undermining that runs proximal. This may stay in place as it lays down Ag for up to 7 days. Cover site with a foam dressing, may replace prn saturation, minimal tape on skin please. documented in this encounterBrooke Glen Behavioral [id number] Hospital Discharge instructions* Discharge Instructions* Heather Sandoval MD - 12/18/2022 11:53 AM EDT Wound Plan: Dressing/packing changes to the surgical incision on this fellow upper back to be done every Tues and Fri to tx and manage drainage from lengthy seroma: Remove packing from both the distal and the proximal aspect of this undermining that runs directly perpendicular to the surgical incision which has healed except for a 1 cm diam open are in the proximal third, irrigate copiously usingNS in a syringe then using the packing and a foam tip swab pack the 13 cm undermined area that runsdistally and the 8 cm undermining that runs proximal. This may stay in place as it lays down Ag forup to 7 days. Cover site with a foam dressing, may replace prn saturation, minimal tape on skin please. documented in this encounterBrooke Glen Behavioral [id number] Consult note* Edyta Quezada RN - 12/18/2022 11:37 AM EDT Images from the original note were not included. Wound Care Initial Consult Visit Date: 12/18/2022 Patient Name: Armand Barron Date of : 1955 Reason for Consult: open draining surgical wound to upper mid back Wound History: Patient admit on 12/17/2022 1:30 PM for Wound disruption [T81.30XA] Surgical site infection [T81.49XA]. Past medical history includes Past Medical History: Diagnosis Date Cord compression (CMS/HCC) 11/10/2022 T2-T7 cord compression Vanegas catheter in place 11/10/2022 Hypercholesteremia Hypertension Hypothyroidism Multiple myeloma (CMS/HCC) 2022 Stapled skin wound 2022 thoracic spine Vitamin deficiency Pertinent Labs: Albumin Date Value Ref Range Status 11/11/2022 3.7 3.5 - 4.8 g/dL Final Albumin, Serum Date Value Ref Range Status 11/10/2022 4.3 3.5 - 5.0 g/dL Final Albumin (Rel %), Serum Date Value Ref Range Status 11/10/2022 61 % Final WBC Date Value Ref Range Status 12/18/2022 7.8 4.6 - 10.2 K/mcL Final WBC, Urine Date Value Ref Range Status 11/10/2022 20 (H) 0 - 5 /HPF Final Glucose POCT Date Value Ref Range Status 11/11/2022 151 (H) 70 - 99 mg/dL Final Wound Incision 12/18/22 Neck Posterior (Active) Wound Image 12/18/22 1100 Ritika-Wound Assessment Clean;Dry 12/18/22 1100 Shape Round 12/18/22 1100 Wound Length (cm) 1 cm 12/18/22 1100 Wound Width (cm) 1 cm 12/18/22 1100 Wound Surface Area (cm^2) 1 cm^2 12/18/22 1100 Wound Depth (cm) 1 cm 12/18/22 1100 Wound Volume (cm^3) 1 cm^3 12/18/22 1100 Drainage Description Serosanguineous;No odor 12/18/22 1100 Drainage Amount Moderate 12/18/22 1100 Treatments Cleansed;Site care;Irrigation 12/18/22 1100 Dressing Foam 12/18/22 1100 Dressing Changed New 12/18/22 1100 Dressing Status Clean;Dry;Intact 12/18/22 1100 Tunneling 8 cm 12/18/22 1100 Tunneling Clock Position of Wound 12 o'clock 12/18/22 1100 Undermining 13 cm 12/18/22 1100 Underming Start Clock Position of Wound 6 o'clock 12/18/22 1100 Underming End Clock Position of Wound 6 o'clock 12/18/22 1100 Edges Well-defined edges 12/18/22 1100 Support Surface: pressure redistribution mattress Wound Summary Assessment: This fellow is well known to me from [facility] He underwent a surgical procedure to his cervical/thoracic vertebrae with hardware to tx a malignancy. I understand he now has metastatic dz. He was admitted for concerns regarding the drainage from a 1 cm diam open area in the proximal third of the surgical wound. I pulled a short length of gauze packing from the site, noted is cloudy serous drainage but not purulence, no odor detected. Using a foam tip measuring swab I was able to access undermining directly beneath the surgical scarthat extends 13 cm distally and 8 cm proximally. To tx this site I have determined the best course of tx at this time is to every e/Wed to remove packing, irrigate with NS and pack using alginate Ag strip packing to adequately access the full undermined are and provide the benefits of the antimicrobial, nanocrystalline silver. A foam dressing is placed over the site to absorb drainage and may be replaced prn saturation. (seephotos) He has many questions regarding perm disability/taking his pension, etc. I advised him to contact someone from his employer to please pay him a visit at rehab to address his concerns /questions. He relates just want to be able to walk again. We discussed deconditioning, goals of care, need for turns to relive pressure on his buttocks whichhas a stage 2 PI that I am certain started with CHARLI. This is being tx with orange top barrier cream. He wants to undergo radiation to his abdomen, had questions on if this can still be done. I referred him to his oncologist and radiation oncologist. Wound Plan: Dressing/packing changes to the surgical incision on this fellow upper back to be done every Tues and Fri to tx and manage drainage from lengthy seroma: Remove packing from both the distal and the proximal aspect of this undermining that runs directly perpendicular to the surgical incision which has healed except for a 1 cm diam open are in the proximal third, irrigate copiously usingNS in a syringe then using the packing and a foam tip swab pack the 13 cm undermined area that runsdistally and the 8 cm undermining that runs proximal. This may stay in place as it lays down Ag forup to 7 days. Cover site with a foam dressing, may replace prn saturation, minimal tape on skin please. Education: with pt at length regarding tx/goals of care/addressing concerns/need for turns and tx plan. He expresses thanks for care and communication. 12/18/2022 11:37 AM EDT [facility] [id number] Consult note* Edyta Quezada RN - 12/18/2022 11:37 AM EDT Images from the original note were not included. Wound Care Initial Consult Visit Date: 12/18/2022 Patient Name: Armand Barron Date of : 1955 Reason for Consult: open draining surgical wound to upper mid back Wound History: Patient admit on 12/17/2022 1:30 PM for Wound disruption [T81.30XA] Surgical site infection [T81.49XA]. Past medical history includes Past Medical History: Diagnosis Date Cord compression (CMS/HCC) 11/10/2022 T2-T7 cord compression Vanegas catheter in place 11/10/2022 Hypercholesteremia Hypertension Hypothyroidism Multiple myeloma (CMS/HCC) 2022 Stapled skin wound 2022 thoracic spine Vitamin deficiency Pertinent Labs: Albumin Date Value Ref Range Status 11/11/2022 3.7 3.5 - 4.8 g/dL Final Albumin, Serum Date Value Ref Range Status 11/10/2022 4.3 3.5 - 5.0 g/dL Final Albumin (Rel %), Serum Date Value Ref Range Status 11/10/2022 61 % Final WBC Date Value Ref Range Status 12/18/2022 7.8 4.6 - 10.2 K/mcL Final WBC, Urine Date Value Ref Range Status 11/10/2022 20 (H) 0 - 5 /HPF Final Glucose POCT Date Value Ref Range Status 11/11/2022 151 (H) 70 - 99 mg/dL Final Wound Incision 12/18/22 Neck Posterior (Active) Wound Image 12/18/22 1100 Ritika-Wound Assessment Clean;Dry 12/18/22 1100 Shape Round 12/18/22 1100 Wound Length (cm) 1 cm 12/18/22 1100 Wound Width (cm) 1 cm 12/18/22 1100 Wound Surface Area (cm^2) 1 cm^2 12/18/22 1100 Wound Depth (cm) 1 cm 12/18/22 1100 Wound Volume (cm^3) 1 cm^3 12/18/22 1100 Drainage Description Serosanguineous;No odor 12/18/22 1100 Drainage Amount Moderate 12/18/22 1100 Treatments Cleansed;Site care;Irrigation 12/18/22 1100 Dressing Foam 12/18/22 1100 Dressing Changed New 12/18/22 1100 Dressing Status Clean;Dry;Intact 12/18/22 1100 Tunneling 8 cm 12/18/22 1100 Tunneling Clock Position of Wound 12 o'clock 12/18/22 1100 Undermining 13 cm 12/18/22 1100 Underming Start Clock Position of Wound 6 o'clock 12/18/22 1100 Underming End Clock Position of Wound 6 o'clock 12/18/22 1100 Edges Well-defined edges 12/18/22 1100 Support Surface: pressure redistribution mattress Wound Summary Assessment: This fellow is well known to me from a recent previous admission to [facility]. He underwent a surgical procedure to his cervical/thoracic vertebrae with hardware to tx a malignancy. I understand he now has metastatic dz. He was admitted for concerns regarding the drainage from a 1 cm diam open area in the proximal third of the surgical wound. I pulled a short length of gauze packing from the site, noted is cloudy serous drainage but not purulence, no odor detected. Using a foam tip measuring swab I was able to access undermining directly beneath the surgical scarthat extends 13 cm distally and 8 cm proximally. To tx this site I have determined the best course of tx at this time is to every Tue/Fri to remove packing, irrigate with NS and pack using alginate Ag strip packing to adequately access the full undermined are and provide the benefits of the antimicrobial, nanocrystalline silver. A foam dressing is placed over the site to absorb drainage and may be replaced prn saturation. (seephotos) He has many questions regarding perm disability/taking his pension, etc. I advised him to contact someone from his employer to please pay him a visit at rehab to address his concerns /questions. He relates just want to be able to walk again. We discussed deconditioning, goals of care, need for turns to relive pressure on his buttocks whichhas a stage 2 PI that I am certain started with CHARLI. This is being tx with orange top barrier cream. He wants to undergo radiation to his abdomen, had questions on if this can still be done. I referred him to his oncologist and radiation oncologist. Wound Plan: Dressing/packing changes to the surgical incision on this fellow upper back to be done every Tues and Fri to tx and manage drainage from lengthy seroma: Remove packing from both the distal and the proximal aspect of this undermining that runs directly perpendicular to the surgical incision which has healed except for a 1 cm diam open are in the proximal third, irrigate copiously usingNS in a syringe then using the packing and a foam tip swab pack the 13 cm undermined area that runsdistally and the 8 cm undermining that runs proximal. This may stay in place as it lays down Ag forup to 7 days. Cover site with a foam dressing, may replace prn saturation, minimal tape on skin please. Education: with pt at length regarding tx/goals of care/addressing concerns/need for turns and tx plan. He expresses thanks for care and communication. 12/18/2022 11:37 AM EDT documented in [place] encounterGerald [place]ille [id number] Note* ED Bed Hold Note - Ollie Greene RN - 12/17/2022 4:57 PM EDT Bed: BP-49 Expected date: Expected time: Means of arrival: Comments: [facility] 17 [facility] [id number] Miscellaneous Notes* ED Bed Hold Note - Ollie Greene RN - 12/17/2022 4:57 PM EDT Bed: BP-49 Expected date: Expected time: Means of arrival: Comments: Room 17 * ED Bed Hold Note - Renuka Kurtz EMT-P - 12/17/2022 1:30 PM EDT Bed: CP-17 Expected date: Expected time: Means of arrival: Comments: C.C. documented in this encounterBrooke Glen Behavioral [id number] History and physical note* Armand Jay DO - 12/17/2022 3:38 PM EDT Images from the original note were not included. History and Physical Date of Admission 12/17/2022 PCP Salena Flores NP Chief Complaint/Visit Reason Incisional wound History Of Present Illness Armand Barron is a 67 y.o. male with a history of multiple myeloma who underwent thoracic decompression and removal of T2 and T7 epidural tumor by laminectomy, facetectomy, and foraminotomy as well as posterior thoracic fusion of C7-T4 by screw fixation on 11/11/[address] Tao. Since that time the patient has had some issue with draining of a seroma and was admitted to the hospital for treatment of that and then sent back to his rehab center. The rehab center felt uncomfortable with the woundand had been in discussions with the neurosurgical team about it who recommended to come back in for evaluation. The patient denies any headaches, dizziness, fevers, chills, chest pain, shortness of breath, abdominal pain, nausea, or paresthesias. He remains weak in his lower extremities. He has been having good and regular bowel movements. His appetite has been reasonable. Review of Systems All other systems reviewed and are negative. Past Medical History: Diagnosis Date Cord compression (CMS/HCC) 11/10/2022 T2-T7 cord compression Vanegas catheter in place 11/10/2022 Hypercholesteremia Hypertension Hypothyroidism Multiple myeloma (CMS/HCC) 2022 Stapled skin wound 2022 thoracic spine Vitamin deficiency Past Surgical History: Procedure Laterality Date CHOLECYSTECTOMY 09/27/1989 SPINAL CORD DECOMPRESSION 11/11/2022 Fusion Decompression T8-T9, T2 tumor removal, T2-T7 spinal cord compression Family History Problem Relation Name Age of Onset Other (hypertensive disorder) Mother Other (malignant lymphoma) Mother Malig Hypertension Mother Other (hypertensive disorder) Father Other (hypertensive disorder) Brother Social History Tobacco Use Smoking status: Never Smokeless tobacco: Never Vaping Use Vaping Use: Never used Substance Use Topics Alcohol use: Yes Alcohol/week: 2.0 standard drinks Types: 2 Cans of beer per week Drug use: Never Allergies No Known Allergies Home Medications Current Outpatient Medications Medication Instructions acetaminophen (TYLENOL) 1,000 mg, oral, Every 6 hours PRN amLODIPine (NORVASC) 10 mg tablet TAKE 1 TABLET BY MOUTH EVERY DAY atorvastatin (LIPITOR) 10 mg tablet TAKE 1 TABLET BY MOUTH EVERY DAY cholecalciferol (VITAMIN D-3) 50,000 Units, oral, Weekly enoxaparin (LOVENOX) 40 mg, subcutaneous, Daily levothyroxine (SYNTHROID, LEVOTHROID) 88 mcg, oral, Daily melatonin 6 mg, oral, Nightly metoprolol tartrate (LOPRESSOR) 50 mg tablet TAKE 1 TABLET BY MOUTH TWICE A DAY omeprazole (PriLOSEC) [address] capsule TAKE 1 CAPSULE BY MOUTH 1 TIME EACH DAY. DO NOT CRUSH OR CHEW. oxyCODONE (OXY-IR) 5 mg, oral, Every 6 hours PRN polyethylene glycol (MIRALAX) 17 g, oral, Daily, Can hold for loose stools. senna (SENOKOT) 8.6 mg, oral, 2 times daily senna-docusate (PERICOLACE) 8.6-50 mg per tablet 1 tablet, oral, 2 times daily PRN traZODone (DESYREL) 50 mg, oral, Nightly PRN Vitals and Physical Exam Patient Vitals for the past 24 hrs: BP Temp Temp src Pulse Resp SpO2 Height Weight 12/17/22 1400 120/73 -- -- 91 17 97 % -- -- 12/17/22 1339 -- -- -- -- -- -- 1.651 m (65) 72.6 kg (160 lb) 12/17/22 1338 125/80 37.2 C (98.9 F) Oral 91 16 99 % -- -- Body mass index is 26.63 kg/m . No intake or output data in the 24 hours ending 12/17/22 1539 Physical Exam Vitals reviewed. Constitutional: General: He is not in acute distress. Appearance: Normal appearance. He is not ill-appearing. HENT: Head: Normocephalic. Mouth/Throat: Mouth: Mucous membranes are moist. Eyes: Extraocular Movements: Extraocular movements intact. Pupils: Pupils are equal, round, and reactive to light. Cardiovascular: Rate and Rhythm: Normal rate and regular rhythm. Heart sounds: No murmur heard. Pulmonary: Effort: Pulmonary effort is normal. Breath sounds: Normal breath sounds. No wheezing or rhonchi. Abdominal: General: Abdomen is flat. Bowel sounds are normal. Palpations: Abdomen is soft. Tenderness: There is no abdominal tenderness. There is no guarding. Musculoskeletal: Cervical back: Normal range of motion. Right lower leg: Edema present. Left lower leg: Edema present. Skin: General: Skin is warm and dry. Comments: His lower neck and upper back incision is mostly clean dry and intact. There is no significant erythema. There is a small pinpoint area that is open which is packed currently. No obvious drainage at this time. Neurological: General: No focal deficit present. Mental Status: He is alert and oriented to person, place, and time. Mental status is at baseline. Motor: Weakness present. Comments: Patient has considerable weakness in his lower extremities which is chronic Psychiatric: Mood and Affect: Mood normal. Recent Lab Results: Admission on 12/17/2022 Component Date Value Ref Range Status Sodium 12/17/2022 134 (L) 136 - 145 mmol/L Final Potassium 12/17/2022 3.8 3.6 - 5.1 mmol/L Final Chloride 12/17/2022 96 (L) 98 - 107 mmol/L Final CO2 12/17/2022 29 22 - 32 mmol/L Final Anion Gap 12/17/2022 9 6 - 18 Final Glucose 12/17/2022 144 (H) 70 - 99 mg/dL Final BUN 12/17/2022 15 8 - 20 mg/dL Final Creatinine 12/17/2022 0.43 (L) 0.60 - 1.30 mg/dL Final eGFR 12/17/2022 118 >=60 mL/min/1.73m2 Final Effective July 05, 2022, calculation based on the Chronic Kidney Disease Epidemiology Collaboration (CKD-EPI) equation refit without adjustment for race. BUN/Creatinine Ratio 12/17/2022 34.9 (H) 12.0 - 20.0 Final Calcium 12/17/2022 8.5 (L) 8.9 - 10.3 mg/dL Final WBC 12/17/2022 7.5 4.6 - 10.2 K/mcL Final RBC 12/17/2022 3.68 (L) 4.30 - 5.70 M/mcL Final Hemoglobin 12/17/2022 10.4 (L) 13.5 - 17.5 g/dL Final Hematocrit 12/17/2022 33.4 (L) 39.0 - 49.0 % Final MCV 12/17/2022 90.8 80.0 - 97.0 FL Final MCH 12/17/2022 28.3 27.0 - 34.0 pcg Final MCHC 12/17/2022 31.1 30.8 - 35.3 g/dL Final RDW 12/17/2022 14.6 11.0 - 14.8 % Final Platelets 12/17/2022 357 142 - 424 K/mcL Final MPV 12/17/2022 8.9 6.2 - 12.1 FL Final Neutrophils Relative 12/17/2022 76.6 (H) 38.1 - 75.5 % Final Lymphocytes Relative 12/17/2022 12.6 (L) 17.9 - 49.6 % Final Monocytes Relative 12/17/2022 7.7 4.0 - 23.0 % Final Eosinophils Relative 12/17/2022 1.1 0.0 - 7.0 % Final Basophils Relative 12/17/2022 0.7 0.0 - 2.0 % Final Immature Granulocytes Relative 12/17/2022 1.3 (H) 0.0 - 1.2 % Final Neutrophils Absolute 12/17/2022 5.77 1.80 - 7.70 K/mcL Final Lymphocytes Absolute 12/17/2022 0.95 (L) 1.00 - 4.80 K/mcL Final Monocytes Absolute 12/17/2022 0.58 0.00 - 0.90 K/mcL Final Eosinophils Absolute 12/17/2022 0.08 0.00 - 0.70 K/mcL Final Basophils Absolute 12/17/2022 0.05 0.00 - 0.20 K/mcL Final Immature Granulocytes Absolute 12/17/2022 0.10 0.00 - 0.10 K/mcL Final Recent Imaging Findings: XR Abdomen 1 View Narrative: EXAMINATION TYPE: XR ABDOMEN 1 VIEW DATE OF EXAM : 12/09/2022 12:04 PM HISTORY: abd distention COMPARISON: 11/14/2012 FINDINGS: Nonobstructive bowel gas pattern. Moderate to large amount of stool throughout the colon and in therectum. Surgical clip in the right upper quadrant. Impression: Constipation. -------- FINAL REPORT -------- Dictated By: Pierre Bhat Dictated Date: 12/09/2022 12:43 Assigned Physician: Pierre Bhat Reviewed and Electronically Signed By: Pierre Bhat Signed Date: 12/09/2022 12:44 Workstation ID: [id number] Transcribed By: Self Edit Transcribed Date: 12/09/2022 12:43 Impression: Armand Barron is a 67 y.o. male with a history of multiple myeloma who underwent thoracic decompression and removal of T2 and T7 epidural tumor by laminectomy, facetectomy, and foraminotomy as well as posterior thoracic fusion of C7-T4 by screw fixation on 11/11/[address] Tao. Since that time the patient has had some issue with draining of a seroma and wound dehiscence. The neurosurgical team requested the patient come back to the hospital for further evaluation. Diagnoses: Wound [id number] evidence of infection or sepsis History of multiple myeloma History of hypertension Plan: Admit to [facility] service for observation Home medications Neurosurgery to see and evaluate his wound Wound care to see No indications for antibiotics or cultures at this time He should have his Vanegas exchanged as it has been in now for over 4 weeks Physical therapy Vanegas: Chronically in place since surgery CVC: N/A DVT prophylaxis: Lovenox Code Status: Full Disposition: Expect the patient will go back to rehab in next 24 to 48 hours Armand Jay DO [facility] ([facility]) [place] [id number] History and physical note* Armand Jay DO - 12/17/2022 3:38 PM EDT Images from the original note were not included. History and Physical Date of Admission 12/17/2022 PCP Salena Flores NP Chief Complaint/Visit Reason Incisional wound History Of Present Illness Armand Barron is a 67 y.o. male with a history of multiple myeloma who underwent thoracic decompression and removal of T2 and T7 epidural tumor by laminectomy, facetectomy, and foraminotomy as well as posterior thoracic fusion of C7-T4 by screw fixation on 11/11/[address] Tao. Since that time the patient has had some issue with draining of a seroma and was admitted to the hospital for treatment of that and then sent back to his rehab center. The rehab center felt uncomfortable with the woundand had been in discussions with the neurosurgical team about it who recommended to come back in for evaluation. The patient denies any headaches, dizziness, fevers, chills, chest pain, shortness of breath, abdominal pain, nausea, or paresthesias. He remains weak in his lower extremities. He has been having good and regular bowel movements. His appetite has been reasonable. Review of Systems All other systems reviewed and are negative. Past Medical History: Diagnosis Date Cord compression (CMS/HCC) 11/10/2022 T2-T7 cord compression Vanegas catheter in place 11/10/2022 Hypercholesteremia Hypertension Hypothyroidism Multiple myeloma (CMS/HCC) 2022 Stapled skin wound 2022 thoracic spine Vitamin deficiency Past Surgical History: Procedure Laterality Date CHOLECYSTECTOMY 09/27/1989 SPINAL CORD DECOMPRESSION 11/11/2022 Fusion Decompression T8-T9, T2 tumor removal, T2-T7 spinal cord compression Family History Problem Relation Name Age of Onset Other (hypertensive disorder) Mother Other (malignant lymphoma) Mother Malig Hypertension Mother Other (hypertensive disorder) Father Other (hypertensive disorder) Brother Social History Tobacco Use Smoking status: Never Smokeless tobacco: Never Vaping Use Vaping Use: Never used Substance Use Topics Alcohol use: Yes Alcohol/week: 2.0 standard drinks Types: 2 Cans of beer per week Drug use: Never Allergies No Known Allergies Home Medications Current Outpatient Medications Medication Instructions acetaminophen (TYLENOL) 1,000 mg, oral, Every 6 hours PRN amLODIPine (NORVASC) 10 mg tablet TAKE 1 TABLET BY MOUTH EVERY DAY atorvastatin (LIPITOR) 10 mg tablet TAKE 1 TABLET BY MOUTH EVERY DAY cholecalciferol (VITAMIN D-3) 50,000 Units, oral, Weekly enoxaparin (LOVENOX) 40 mg, subcutaneous, Daily levothyroxine (SYNTHROID, LEVOTHROID) 88 mcg, oral, Daily melatonin 6 mg, oral, Nightly metoprolol tartrate (LOPRESSOR) 50 mg tablet TAKE 1 TABLET BY MOUTH TWICE A DAY omeprazole (PriLOSEC) [address] capsule TAKE 1 CAPSULE BY MOUTH 1 TIME EACH DAY. DO NOT CRUSH OR CHEW. oxyCODONE (OXY-IR) 5 mg, oral, Every 6 hours PRN polyethylene glycol (MIRALAX) 17 g, oral, Daily, Can hold for loose stools. senna (SENOKOT) 8.6 mg, oral, 2 times daily senna-docusate (PERICOLACE) 8.6-50 mg per tablet 1 tablet, oral, 2 times daily PRN traZODone (DESYREL) 50 mg, oral, Nightly PRN Vitals and Physical Exam Patient Vitals for the past 24 hrs: BP Temp Temp src Pulse Resp SpO2 Height Weight 12/17/22 1400 120/73 -- -- 91 17 97 % -- -- 12/17/22 1339 -- -- -- -- -- -- 1.651 m (65) 72.6 kg (160 lb) 12/17/22 1338 125/80 37.2 C (98.9 F) Oral 91 16 99 % -- -- Body mass index is 26.63 kg/m . No intake or output data in the 24 hours ending 12/17/22 1539 Physical Exam Vitals reviewed. Constitutional: General: He is not in acute distress. Appearance: Normal appearance. He is not ill-appearing. HENT: Head: Normocephalic. Mouth/Throat: Mouth: Mucous membranes are moist. Eyes: Extraocular Movements: Extraocular movements intact. Pupils: Pupils are equal, round, and reactive to light. Cardiovascular: Rate and Rhythm: Normal rate and regular rhythm. Heart sounds: No murmur heard. Pulmonary: Effort: Pulmonary effort is normal. Breath sounds: Normal breath sounds. No wheezing or rhonchi. Abdominal: General: Abdomen is flat. Bowel sounds are normal. Palpations: Abdomen is soft. Tenderness: There is no abdominal tenderness. There is no guarding. Musculoskeletal: Cervical back: Normal range of motion. Right lower leg: Edema present. Left lower leg: Edema present. Skin: General: Skin is warm and dry. Comments: His lower neck and upper back incision is mostly clean dry and intact. There is no significant erythema. There is a small pinpoint area that is open which is packed currently. No obvious drainage at this time. Neurological: General: No focal deficit present. Mental Status: He is alert and oriented to person, place, and time. Mental status is at baseline. Motor: Weakness present. Comments: Patient has considerable weakness in his lower extremities which is chronic Psychiatric: Mood and Affect: Mood normal. Recent Lab Results: Admission on 12/17/2022 Component Date Value Ref Range Status Sodium 12/17/2022 134 (L) 136 - 145 mmol/L Final Potassium 12/17/2022 3.8 3.6 - 5.1 mmol/L Final Chloride 12/17/2022 96 (L) 98 - 107 mmol/L Final CO2 12/17/2022 29 22 - 32 mmol/L Final Anion Gap 12/17/2022 9 6 - 18 Final Glucose 12/17/2022 144 (H) 70 - 99 mg/dL Final BUN 12/17/2022 15 8 - 20 mg/dL Final Creatinine 12/17/2022 0.43 (L) 0.60 - 1.30 mg/dL Final eGFR 12/17/2022 118 >=60 mL/min/1.73m2 Final Effective July 05, 2022, calculation based on the Chronic Kidney Disease Epidemiology Collaboration (CKD-EPI) equation refit without adjustment for race. BUN/Creatinine Ratio 12/17/2022 34.9 (H) 12.0 - 20.0 Final Calcium 12/17/2022 8.5 (L) 8.9 - 10.3 mg/dL Final WBC 12/17/2022 7.5 4.6 - 10.2 K/mcL Final RBC 12/17/2022 3.68 (L) 4.30 - 5.70 M/mcL Final Hemoglobin 12/17/2022 10.4 (L) 13.5 - 17.5 g/dL Final Hematocrit 12/17/2022 33.4 (L) 39.0 - 49.0 % Final MCV 12/17/2022 90.8 80.0 - 97.0 FL Final MCH 12/17/2022 28.3 27.0 - 34.0 pcg Final MCHC 12/17/2022 31.1 30.8 - 35.3 g/dL Final RDW 12/17/2022 14.6 11.0 - 14.8 % Final Platelets 12/17/2022 357 142 - 424 K/mcL Final MPV 12/17/2022 8.9 6.2 - 12.1 FL Final Neutrophils Relative 12/17/2022 76.6 (H) 38.1 - 75.5 % Final Lymphocytes Relative 12/17/2022 12.6 (L) 17.9 - 49.6 % Final Monocytes Relative 12/17/2022 7.7 4.0 - 23.0 % Final Eosinophils Relative 12/17/2022 1.1 0.0 - 7.0 % Final Basophils Relative 12/17/2022 0.7 0.0 - 2.0 % Final Immature Granulocytes Relative 12/17/2022 1.3 (H) 0.0 - 1.2 % Final Neutrophils Absolute 12/17/2022 5.77 1.80 - 7.70 K/mcL Final Lymphocytes Absolute 12/17/2022 0.95 (L) 1.00 - 4.80 K/mcL Final Monocytes Absolute 12/17/2022 0.58 0.00 - 0.90 K/mcL Final Eosinophils Absolute 12/17/2022 0.08 0.00 - 0.70 K/mcL Final Basophils Absolute 12/17/2022 0.05 0.00 - 0.20 K/mcL Final Immature Granulocytes Absolute 12/17/2022 0.10 0.00 - 0.10 K/mcL Final Recent Imaging Findings: XR Abdomen 1 View Narrative: EXAMINATION TYPE: XR ABDOMEN 1 VIEW DATE OF EXAM : 12/09/2022 12:04 PM HISTORY: abd distention COMPARISON: 11/14/2012 FINDINGS: Nonobstructive bowel gas pattern. Moderate to large amount of stool throughout the colon and in therectum. Surgical clip in the right upper quadrant. Impression: Constipation. -------- FINAL REPORT -------- Dictated By: Pierre Bhat Dictated Date: 12/09/2022 12:43 Assigned Physician: Pierre Bhat Reviewed and Electronically Signed By: Pierre Bhat Signed Date: 12/09/2022 12:44 Workstation ID: [id number] Transcribed By: Self Edit Transcribed Date: 12/09/2022 12:43 Impression: Armand Barron is a 67 y.o. male with a history of multiple myeloma who underwent thoracic decompression and removal of T2 and T7 epidural tumor by laminectomy, facetectomy, and foraminotomy as well as posterior thoracic fusion of C7-T4 by screw fixation on 11/11/[address] Tao. Since that time the patient has had some issue with draining of a seroma and wound dehiscence. The neurosurgical team requested the patient come back to the hospital for further evaluation. Diagnoses: Wound lazuydudev-smia-op evidence of infection or sepsis History of multiple myeloma History of hypertension Plan: Admit to [facility] service for observation Home medications Neurosurgery to see and evaluate his wound Wound care to see No indications for antibiotics or cultures at this time He should have his Vanegas exchanged as it has been in now for over 4 weeks Physical therapy Vanegas: Chronically in place since surgery CVC: N/A DVT prophylaxis: Lovenox Code Status: Full Disposition: Expect the patient will go back to rehab in next 24 to 48 hours Armand Jay DO [facility] ([facility]) documented in this encounterBrooke Glen Behavioral [id number] Note* ED Bed Hold Note - Renuka Kurtz, EMT-P - 12/17/2022 1:30 PM EDT Bed: [facility] Expected date: Expected time: Means of arrival: Comments: [facility] [id number] History of Present illness Narrative* Sydnee Monge RN - 12/11/2022 9:44 AM EDT Spoke w/Angeline at [facility] re: update on pts wound. Angeline will check w/the nurse manager market intelligence. Dr. Guerra stated that depending on the condition of the wound and drainage will determine when pt will start RT. Angeline to call back. documented in this encounterBrooke Glen Behavioral [id number] History of Present illness Narrative* Felicia Armijo RN - 12/09/2022 4:07 PM EDT Patient discharged with [facility] at this time. * Felicia Armijo RN - 12/09/2022 3:54 PM EDT [facility] here to transport pt to [facility] at this time. Report and packet with script given to [facility] * Felicia Armijo RN - 12/09/2022 3:45 PM EDT Report called to Miquel at [facility] at this time * Felicia Armijo RN - 12/09/2022 3:00 PM EDT IR pulled drain as ordered * Felicia Armijo RN - 12/09/2022 2:55 PM EDT IR here on the floor to pull the drain prior to the patient being discharged. * Felicia Armijo RN - 12/09/2022 2:50 PM EDT IR called and spoke with Ollie about coming to pull the Drain that was placed by them. Will be up topull the drain. * Felicia Armijo RN - 12/09/2022 2:35 PM EDT Neurosurgery called at this time to see about the drain being pulled. Wants nurse to call IR as they placed the tube * Sophia Miller RN - 12/09/2022 1:49 PM EDT Images from the original note were not included. [facility] [employer] [facility] Transportation Request Please remember that EMS Crew can take a maximum of two bags of patient belonging. Also DME such asWheelchairs, Bedside commodes, and other large pieces of equipment cannot travel in the ambulance due to patient and crew safety. Insurance Alert: Patients that have a managed Medicare plan will be contacted about paying a deposit for transportation via Ambulance. Please let the patient know that Ambulance Transport is not covered at 100%. There will be an out of pocket expense for ambulance transport. The deposit for transport is $200.00. This deposit is refundable pending insurance payment for transport. Transportation Type: Ambulance Requesting Staff Members Call Back Number: [phone] Requesting Hospital: [facility] [id number] Attending Provider: Marta Mason MD Patient Name: Last, First: Armand Barron : 1955 Patient Weight: 77.1 kg (170 lb) Primary Insurance: Payor: [employer] / Plan: [employer] M[employer] SUPERMED / Product Type: *No Product type* / Code Status: Full Code - Default Destination Type: ECF/SNF/ASSISTED LIVING - RETURN For Private Residence Only! Accessibility into the residence! For Private Residence Only! Caregiver who will be at residence! Destination: Private Residence and Other are listed in this list. [facility] [place] - [address], [place] [address] Requested Associate Professor Computer Science Date and Time: TODAY - TIME:1530 Equipment: No Equipment VENT BIPAP SETTING If patient is not on Vent BIPAP this section will automatically be blank. Isolation Precautions: There are no current isolations documented for this patient. Medical Necessity for Ambulance: Severe Weakness due to:T7 Pathologic Compression Fracture and Unable to maintain safe sitting position for length of transport due to:T7 Pathologic Compression Fracture Reason For Visit: Chief Complaint Patient presents with Post-op Problem Patient had back surgery at [facility]. Facility attempted to take stables out today but felt wound did not appear to be healing appropriately and had a lot of drainage. Patient was advised to come to [facility] not [facility]. Past Medical History: has a past medical history of Cord compression (CMS/HCC) (11/10/2022), Vanegas catheter in place (11/10/2022), Hypercholesteremia, Hypertension, Hypothyroidism, Multiple myeloma (CMS/HCC) (2022), Stapled skin wound (2022), and Vitamin deficiency. Other Important Information: * Sierra Titus RD - 12/09/2022 12:54 PM EDT 12/09/2022 @ 12:54 PM EDT Nutrition Assessment Reason for Assessment Assessment Type: Protocol/Policy Reason for Assessment: LOS * Chart screended due to LOS Subjective/current clinical: pt noted to be medically ready for dc/awaiting precert. Nutrition Diagnosis: Status: New Diagnosis: Increased Nutrient Needs Etiology: Increased demand for nutrient Symptoms: healing needs Nutrition Recommendations/Plan of Care/Nutrition Interventions: Diet Order: Regular Diet If pt does not leave; recommend adding supplements to help with healing and to boost nutrition for when radiation starts (otherwise recommend initiating as needed at his facility) will update depart Nutrition Monitoring and Evaluation Monitor clinical course and need for further nutrition intervention.. Monitoring/Evaluation: Food Intake (recommend consider at pt's onboarding facility) RD remains available and will continue to follow. History of presenting illness: Patient is a 67 y.o. male with a history of Past Medical History: Diagnosis Date Cord compression (CMS/HCC) 11/10/2022 T2-T7 cord compression Vanegas catheter in place 11/10/2022 Hypercholesteremia Hypertension Hypothyroidism Multiple myeloma (CMS/HCC) 2022 Stapled skin wound 2022 thoracic spine Vitamin deficiency Past Surgical History: Procedure Laterality Date CHOLECYSTECTOMY 09/27/1989 SPINAL CORD DECOMPRESSION 11/11/2022 Fusion Decompression T8-T9, T2 tumor removal, T2-T7 spinal cord compression admitted 12/01/2022 with Infected wound. Current Diet and Supplements: Dietary Orders (From admission, onward) Start Ordered 12/02/22 0001 Adult diet [facility]; General; Regular Diet effective now Question Answer Comment Location [facility] Diet Type (req) General General Diet Regular 12/02/22 0001 Food/Nutrition History: was seen by RDN at [facility]'s 11/10/22 and was eating 75-100% at that time as well CurrentFood/Nutrition Status Intake Type: P.O. Current Diet Status: Appropriate Intake Amount (%): 75-100% Anthropometrics: Ht Readings from Last 1 Encounters: 12/01/22 1.753 m (69) Admit 12/01/22 Weight: 77.1 kg (170 lb) Weight Method: Stated Body mass index is 25.1 kg/m . Anthropometrics IBW (lbs): 160 Weight History: Wt Readings from Last 10 Encounters: 12/01/22 77.1 kg (170 lb) 11/30/22 77.1 kg (170 lb) 11/10/22 80.7 kg (178 lb) 11/05/22 81 kg (178 lb 9.6 oz) 10/09/22 83.9 kg (185 lb) 08/21/22 81.2 kg (179 lb) 07/30/22 84.4 kg (186 lb) 06/15/22 82.8 kg (182 lb 9.6 oz) 05/07/22 82.4 kg (181 lb 9.6 oz) 04/29/22 82.7 kg (182 lb 6.4 oz) Pertinent nutrition-related medications/labs reviewed on 12/09/2022. Nutrition Focused Physical Findings: Nutrition-Focused Physical Findings Overall Appearance: pt not viewed; this RDN working remotely today Digestive System (Mouth to Rectum): Abdominal distention (physicina noted and added simethicone today for abdominal distention and bloating) Skin: stage 2 to buttock; incisional wound to back Fluid Accumulation/Edema: Localized (bilat lower extremity APERTURE MASK ETCHER edema) Follow Up: Nutrition Priority Level Priority Level: Moderate Follow Up Date: 12/16/22 Signature: Sierra Titus RDN, LD, [facility] [phone] * Sophia Miller RN - 12/09/2022 10:21 AM EDT 12/09/22 1021 Discharge Planning Patient expects to be discharged to: Return to [facility] pending precert Patient remains in precert. Inquired with facility regarding precert status. Updated attending Marta Mason MD of above. Delay in place due to precert. 1430: Precert approved. CM completing discharge planning for patient. Patient will discharge on 12/09/22. Discharge destination is SNF placement at [facility]. Patient will be transported by ambulance; transport scheduled with [facility] on 12/09/22 at [id number], transport packet with hard chart. Discharge plan communicated with patient, family, attending, bedside RN and facility and all are in agreement with discharge plan. CM will remain available to assist with discharge planning needs as needed. Sophia MONROE child adolescent psychiatrist [phone] or secure chat * Ifeanyi Boggs, PT - 12/09/2022 10:09 AM EDT Patient: Armand Barron Age: 67 y.o. Sex: male Infected wound [facility] Physical Therapy Treatment Multi-Disciplinary Rounding Report Ambulation: not ready to ambulate, EOB activities completed this date. PLOF: Level of Long: Independent with mobility and functional transfers Type of Home: Subacute rehab Prior Function Comments: Independent prior to surgery, working on sitting and sitting balance, transfers at rehab DME Needs: PT Discharge Recommendation: half-way facility placement Reason for current recommendation based on assessment: Pt appropriate for skilled therapy intervention int he SNF setting to optimize his functional outcomes. With less frequency/shorter duration therapy sessions, pt would have suboptimal outcomes and likely have limited to no progress with functional mobility performance. He also needs this level of care as he is unable to mobilize and care for himself based on his physical mobility limitations. He needs the support that this level of care would provide while he participates in rehabilitation. SUBJECTIVE Pt pleased with performance in activity this date. Feels he did a little better. OBJECTIVE Precautions: Precautions Medical Precautions: Fall Risk Safety Interventions: Call lock within reach, Bed alarm Orthopedic Precautions: Cervical Precautions Vitals/Pain: Reports pn in L knee, does appear maybe a little more swollen than the R, however pt does not report anything unusual with its appearance. Exercise adjustments and assistance during mobility were helpful in optimize his tolerance for these activities. Functional Assessments: Bed Mobility Rolling Right Assistance: Moderate assistance Lying to Sitting Assistance: Moderate assistance Transfers Transfer Comments: no appropriate to stand at [facility] time Procedure/Treatment: Therapeutic Activity Therapeutic Activity Time Entry: 10 Therapeutic Activity 1: education on log rolling and bed mobility techniques to protect back precautions and improve performance. Therapeutic Activity 2: positioning education to help with pn management. Therapeutic Activity 3: tolerates 11-13 minutes of EOB sitting this date. Therapeutic Exercise Therapeutic Exercise Time Entry: 15 Therapeutic Exercise Activity 1: supine and seated ther ex education and performance this date Therapeutic Exercise Activity 2: sitting ex - LAQs (active assisted), RLE hip flexion (active assisted), ankle DF (not actively assisted but minimal range d/t weakness, especially in L) x 10 reps each ex Therapeutic Exercise Activity 3: supine ther ex - heel slides on the LLE x 10 reps, manually resisted hip/knee extension (pt very weak, x 5 reps of this ex). Therapeutic Exercise Activity 4: education on exercises to be completed outside of therapy session Therapeutic Exercise Activity 5: education on breathing during ex to manage safety and tolerance. Adjusted LLE ther ex when knee was ranged during ex to manage his pn. ASSESSMENT Pt remains weak int he BLE (LLE > RLE) which impact progressive mobility. It continues to be notappropriate to attempt standing. HE did seem to tolerate sitting better this date. Performance improvement seen with rolling and supine <> Sit. Pt does confirm feeling as though he did better this date. He continues to be appropriate for hospital based PT intervention and will need to continue rehab post hospital stay to optimize his outcomes post hospital stay. PLAN Acute Care Plan: Treatment/Interventions: Functional transfer training, LE strengthening/ROM, Endurance training, Equipment eval/education, Patient/family training, Bed mobility, Gait training, Compensatory techniqueeducation, Balance training PT Plan: Skilled PT PT Frequency: 5 days per week PT Duration of Sessions: PRN PT Treatments per day: 1 time per day PT Discharge Recommendations: half-way facility placement Time Spent: PT Time Calculation PT Start Time: 1009 PT Stop Time: 1040 PT Time Calculation (min): 31 min Time Entry: PT Therapeutic Procedures Time Entry Therapeutic Activity Time Entry: 10 Therapeutic Exercise Time Entry: 15 Goals: Encounter Problems Encounter Problems (Active) Template: Physical Therapy Problem: Balance Goal: Maintains dynamic sitting balance with upper extremity support Dates: Start: 12/05/22 Expected End: 12/11/22 Description: Goal Type: STG, Performance Level: Contact guard Outcomes Date/Time User Outcome 12/08/22 112Austin Chirinos RN Progressing Problem: Transfers Goal: Transfer from bed to chair. Dates: Start: 12/05/22 Expected End: 12/11/22 Description: Goal Type: STG, Performance Level: Contact guard with slide board Outcomes Date/Time User Outcome 12/08/22 112Austin Chirinos RN Progressing Goal: Patient to transfer to and from sit to supine Dates: Start: 12/05/22 Expected End: 12/11/22 Description: Goal Type: STG, Performance Level: Min assist log roll Outcomes Date/Time User Outcome 12/09/22 1047 Ifeanyi Boggs PT Progressing Encounter Problems (Resolved) There are no resolved problems. * Marta Mason MD - 12/09/2022 9:18 AM EDT Images from the original note were not included. Progress Note Chief Complaint/Visit Reason: Abdominal bloating Impression: This patient is a 67-year-old male with past medical history of hypertension, hyperlipidemia, hypothyroidism, GERD, and recent diagnosis of multiple myeloma with T2 and T7 pathological fractures withepidural tumor and subsequent cord compression. He underwent thoracic decompression and removal of T2 and T7 epidural tumor by laminectomy, facetectomy, and foraminotomy as well as posterior thoracicfusion of C7-T4 by screw fixation on 11/11/[address] Tao. Patient had been doing therapy at [facility] [place] and staff noted that his incision began looking erythematous, with copious drainage. He was sent back to [facility] for evaluation by neurosurgery. Went to IR on 12/02 for drain placement and fluid sent for culture, no growth. He remained clinically very stable. [facility] [place], now awaiting precert for discharge. Diagnoses: Postoperative wound infection versus seroma, favor seroma, s/p drain placement Multiple myeloma with T2 and T7 pathological fractures with epidural tumor status post C7-T4 posterior thoracic fusion with fixation and removal of epidural tumor with laminectomy, facetectomy, and foraminotomy by Dr. Tao on 11/11/2022. 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 Hypertension. Hyperlipidemia. Hypothyroidism. GERD. Plan: Neurosurgery will dc drain on the day of discharge Wound care/dressing changes to mid thoracic surgical wound every 5 day Patient set up for radiation down the road but may be delayed due to wound healing. Continue amlodipine, atorvastatin, levothyroxine, metoprolol, Protonix Aggressive bowel regimen--abd distention with KUB showing constipation DVT prophylaxis: Lovenox, cleared by neurosurgery on 12/05. Disposition: Patient is medically stable for discharge back to [facility] in [place], awaiting pre-CERT. Discussedwith case management. Follow-up with Dr. Tao in 2 months, added to depart at discharge. Dr. Barrett for radiation 12/14 Marta Mason MD [facility] ([facility]) Subjective: Patient endorses feeling okay overall. Still having some abdominal distention and comfort. States he is passing gas. Has not yet had a bowel movement. Denies dizziness, chest pain, shortness of breath, nausea, vomiting. Review of Systems All other systems reviewed and are negative. Vitals and Physical exam: Patient Vitals for the past 24 hrs: BP Temp Temp src Pulse SpO2 12/09/22 0736 95/61 36.8 C (98.2 F) Oral 69 99 % 12/09/22 0437 112/71 37.6 C (99.7 F) Oral 82 97 % 12/08/22 2344 108/69 36.8 C (98.2 F) Oral 77 95 % 12/08/22 1953 106/65 37 C (98.6 F) Oral 68 96 % 12/08/22 1747 96/62 36.7 C (98.1 F) Oral 79 95 % Body mass index is 25.1 kg/m . Intake/Output Summary (Last 24 hours) at 12/09/2022 0918 Last data filed at 12/09/2022 0500 Gross per 24 hour Intake 10 ml Output 2075 ml Net -2065 ml Physical Exam Constitutional: General: He is not in acute distress. Appearance: He is normal weight. He is not ill-appearing or toxic-appearing. HENT: Head: Normocephalic and atraumatic. Mouth/Throat: Mouth: Mucous membranes are moist. Eyes: Extraocular Movements: Extraocular movements intact. Neck: Comments: Surgical site well appearing, drain in place Cardiovascular: Rate and Rhythm: Normal rate and regular rhythm. Heart sounds: No murmur heard. Pulmonary: Effort: Pulmonary effort is normal. Breath sounds: Normal breath sounds. No wheezing or rhonchi. Abdominal: General: Bowel sounds are normal. There is distension. Tenderness: There is no abdominal tenderness. Musculoskeletal: Right lower leg: No edema. Left lower leg: No edema. Skin: General: Skin is dry. Coloration: Skin is pale. Neurological: Mental Status: He is alert and oriented to person, place, and time. Mental status is at baseline. Psychiatric: Mood and Affect: Mood normal. Thought Content: Thought content normal. Recent Lab Results: Results from last 7 days Lab Units 12/09/22 0442 12/08/22 0430 12/07/22 0425 12/06/22 0513 12/05/22 0415 12/04/22 0434 12/03/22 0450 SODIUM mmol/L 136 135* 136 135* 137 137 137 POTASSIUM mmol/L 3.9 3.9 3.9 4.1 4.2 4.0 3.8 CHLORIDE mmol/L 101 99 100 100 103 102 102 CO2 mmol/L 27 30 29 30 28 27 28 BUN mg/dL 17 14 16 13 15 15 17 CREATININE mg/dL 0.54* 0.55* 0.58* 0.59* 0.56* 0.54* 0.72 Results from last 7 days Lab Units 12/09/22 0442 12/06/22 0513 12/05/22 1024 WBC AUTO K/mcL 7.7 5.7 5.3 TOTAL COUNTED -- 100 -- HEMOGLOBIN g/dL 10.2* 9.5* 10.3* HEMATOCRIT % 32.7* 29.9* 33.5* PLATELETS K/mcL 355 264 249 MCV FL 94.2 94.3 95.7 Recent Imaging Findings: CT Guided Perc Drain Plcmnt Narrative: CT guided abscess drain placement INDICATION: Fluid collection postoperatively STAFF: Palmer DEE FLUOROSCOPY TIME: None. COMPLICATIONS: None EBL: <5 ml MEDICATIONS: 2% lidocaine local. PROCEDURE: Time-out was performed to confirm the correct patient, procedure, and site. The patient was placed prone. A site overlying the back was marked prepped and draped in sterile fashion. Skin prep was allowed to fully dry. The skin was anesthetized with LIDOCAINE. Under CT guidance a 12-Austrian pigtail drainage catheter was placed within the collection. 10 mL of serosanguineous fluid was aspirated and sent for analysis. The catheter was sutured to the skin and then attached togravity drainage. PATIENT DISPOSITION: Discharged from the department in stable condition. Impression: Technically successful CT-guided 12-Austrian drain placement within postoperative fluid collection in the upper back -------- FINAL REPORT -------- Dictated By: Louie Chakraborty Dictated Date: 12/02/2022 14:39 Assigned Physician: Louei Chakraborty Reviewed and Electronically Signed By: Louie Chakraborty Signed Date: 12/02/2022 14:41 Workstation ID: [id number] Transcribed By: Self Edit Transcribed Date: 12/02/2022 14:39 MR Thoracic Spine wo and w Contrast Narrative: EXAMINATION TYPE: MR THORACIC SPINE WO AND W CONTRAST, MR CERVICAL SPINE WO AND W CONTRAST DATE OF EXAM ORDERED: 12/02/2022 2:19 AM HISTORY: pathologic T7 compression fracture with retropulsion, post op fluid collection, likely seroma COMPARISON: CT 12/01/2022, MR 11/10/2022 TECHNIQUE: MR cervical and thoracic spine with and without contrast FINDINGS: THORACIC SPINE: At T7, there is an enhancing mass with associated pathologic compression fracture. There has been progression of vertebral body height loss since the prior examination from 11/10/2022, as well as increased retropulsion of bony fragments into the spinal canal at this level. Retropulsion of bony fragments results in fairly severe narrowing of the thecal sac at this level, as well as cord compressionand mildly increased cord signal intensity from the T6-7 through T7-8 levels. The extent of compression is improved compared to the prior preoperative examination from 11/10/2022. Posterior laminectomy has been performed at the T5 level. Smaller enhancing lesions are present in the T10 and T11 vertebral bodies. There has been resection of a mass previously noted at the T2 level, spinal fusion hardware from [id number] T4. A small amount of residual enhancing tissue in the left neural foramen at T2-3 may represent granulation tissue or residual tumor. Previously noted cord compression in this area has improved. In the posterior paraspinal soft tissues, there is a fluid collection along the midline and slightly right of midline extending from the cervicothoracic junction to the T8 level. This abuts the spinous processes and abuts the facet joints near the levels of the surgical hardware. This is also contiguous with the laminectomy defects at the T7 level and in the upper thoracic spine at the areas of fusion. No additional cord signal abnormality is identified. Postsurgical changes are present elsewhere in the paraspinal soft tissues. Trace bilateral pleural effusions are noted. CERVICAL SPINE: Posterior fusion has been performed from C7 through T4. Focal kyphosis is noted in the upper thoracic spine. Alignment is otherwise maintained. There is been resection of the previously noted mass atthe T2 level. There is some residual enhancing tissue within the left foramen at the T2-3 level, which could represent residual tumor or granulation tissue. No additional discrete lesion is identified. No abnormal cord signal intensity is identified in the cervical cord. The craniocervical junction is intact. Postsurgical changes are present in the posterior paraspinal soft tissues in the lower cervical andupper thoracic region. In the posterior paraspinal soft tissues near the midline into the right of midline, there is a peripherally enhancing fluid collection extending from the C5 level inferiorly into the upper thoracic region. This extends to the laminectomy defect at the lower cervical and upper thoracic spine. There is no significant associated mass effect on the thecal sac. Evaluation of the lower cervical spine is somewhat limited by susceptibility artifact from surgicalhardware. Multilevel mild to moderate degenerative changes are present in the lower cervical spine,grossly similar to the prior examination. Impression: At the T7 level, there has been progression of a severe compression fracture and retropulsion of bony fragments into the spinal canal. Posterior decompression has been performed at this level. There is compression of the cord at this level with increased cord signal intensity as above. The overall extent of cord compression at this level is decreased compared to the prior postoperative examination from 11/10/2022. Resection of the previously noted mass at the T2 level. There is a small residual enhancing tissue in the left T2-T3 neural foramen, which may represent granulation tissue or an element of residual mass. Cord compression in this area has improved. Enhancing masses in the T10 and T11 vertebral bodies, not significantly changed. In the posterior paraspinal soft tissues, there is a large fluid collection at the midline and slightly right of midline, which extends from approximately the C5 level to the T8 level. There is some extension of the fluid collection to the laminectomy defects at T2 and T7. Some peripheral enhancement is present. This may represent a postoperative seroma, however, sterility is not confirmed. Clinical correlation is recommended. -------- FINAL REPORT -------- Dictated By: Shay Dallas Dictated Date: 12/02/2022 07:20 Assigned Physician: Shay Dallas Reviewed and Electronically Signed By: Shay Dallas Signed Date: 12/02/2022 07:48 Workstation ID: [id number] Transcribed By: Self Edit Transcribed Date: 12/02/2022 07:20 MR Cervical Spine wo and w Contrast Narrative: EXAMINATION TYPE: MR THORACIC SPINE WO AND W CONTRAST, MR CERVICAL SPINE WO AND W CONTRAST DATE OF EXAM ORDERED: 12/02/2022 2:19 AM HISTORY: pathologic T7 compression fracture with retropulsion, post op fluid collection, likely seroma COMPARISON: CT 12/01/2022, MR 11/10/2022 TECHNIQUE: MR cervical and thoracic spine with and without contrast FINDINGS: THORACIC SPINE: At T7, there is an enhancing mass with associated pathologic compression fracture. There has been progression of vertebral body height loss since the prior examination from 11/10/2022, as well as increased retropulsion of bony fragments into the spinal canal at this level. Retropulsion of bony fragments results in fairly severe narrowing of the thecal sac at this level, as well as cord compressionand mildly increased cord signal intensity from the T6-7 through T7-8 levels. The extent of compression is improved compared to the prior preoperative examination from 11/10/2022. Posterior laminectomy has been performed at the T5 level. Smaller enhancing lesions are present in the T10 and T11 vertebral bodies. There has been resection of a mass previously noted at the T2 level, spinal fusion hardware from [id number] T4. A small amount of residual enhancing tissue in the left neural foramen at T2-3 may represent granulation tissue or residual tumor. Previously noted cord compression in this area has improved. In the posterior paraspinal soft tissues, there is a fluid collection along the midline and slightly right of midline extending from the cervicothoracic junction to the T8 level. This abuts the spinous processes and abuts the facet joints near the levels of the surgical hardware. This is also contiguous with the laminectomy defects at the T7 level and in the upper thoracic spine at the areas of fusion. No additional cord signal abnormality is identified. Postsurgical changes are present elsewhere in the paraspinal soft tissues. Trace bilateral pleural effusions are noted. CERVICAL SPINE: Posterior fusion has been performed from C7 through T4. Focal kyphosis is noted in the upper thoracic spine. Alignment is otherwise maintained. There is been resection of the previously noted mass atthe T2 level. There is some residual enhancing tissue within the left foramen at the T2-3 level, which could represent residual tumor or granulation tissue. No additional discrete lesion is identified. No abnormal cord signal intensity is identified in the cervical cord. The craniocervical junction is intact. Postsurgical changes are present in the posterior paraspinal soft tissues in the lower cervical andupper thoracic region. In the posterior paraspinal soft tissues near the midline into the right of midline, there is a peripherally enhancing fluid collection extending from the C5 level inferiorly into the upper thoracic region. This extends to the laminectomy defect at the lower cervical and upper thoracic spine. There is no significant associated mass effect on the thecal sac. Evaluation of the lower cervical spine is somewhat limited by susceptibility artifact from surgicalhardware. Multilevel mild to moderate degenerative changes are present in the lower cervical spine,grossly similar to the prior examination. Impression: At the T7 level, there has been progression of a severe compression fracture and retropulsion of bony fragments into the spinal canal. Posterior decompression has been performed at this level. There is compression of the cord at this level with increased cord signal intensity as above. The overall extent of cord compression at this level is decreased compared to the prior postoperative examination from 11/10/2022. Resection of the previously noted mass at the T2 level. There is a small residual enhancing tissue in the left T2-T3 neural foramen, which may represent granulation tissue or an element of residual mass. Cord compression in this area has improved. Enhancing masses in the T10 and T11 vertebral bodies, not significantly changed. In the posterior paraspinal soft tissues, there is a large fluid collection at the midline and slightly right of midline, which extends from approximately the C5 level to the T8 level. There is some extension of the fluid collection to the laminectomy defects at T2 and T7. Some peripheral enhancement is present. This may represent a postoperative seroma, however, sterility is not confirmed. Clinical correlation is recommended. -------- FINAL REPORT -------- Dictated By: Shay Dallas Dictated Date: 12/02/2022 07:20 Assigned Physician: Shay Dallas Reviewed and Electronically Signed By: Shay Dallas Signed Date: 12/02/2022 07:48 Workstation ID: [id number] Transcribed By: Self Edit Transcribed Date: 12/02/2022 07:20 CT Cervical Spine w Contrast Narrative: EXAMINATION TYPE: CT CERVICAL SPINE W CONTRAST, CT THORACIC SPINE W CONTRAST DATE OF EXAM ORDERED: 12/01/2022 10:12 PM HISTORY: post-op infection concern, recent thoracic lower cervical surgery on 11/11. Drainage from surgical wound, CONTRAST USED: 100 mL [id number] COMPARISON: CT thoracic spine 11/11/2022, MRI cervical and thoracic spine 11/10/2022 TECHNIQUE: Contiguous axial, coronal and sagittal images were obtained through the cervical and thoracic spine following intravenous contrast administration. FINDINGS: CT CERVICAL SPINE: Skull base is intact. Atlantoaxial joint is unremarkable. There is convex left scoliosis noted. The vertebrae are otherwise normally aligned. No acute cervical fracture is seen. Disc spaces well-preserved from C2-3 through C4-5. At C5-6 again noted is bulging disc and osteophyte complex without significant spinal stenosis. At C6-7 there is also mild bulging the disc with no significant spinal stenosis. Again noted are changes of posterior instrumented fixation with spinal rods and pedicle screws in the C7 and T1 vertebrae as well as the T3 and T4 vertebrae without acute complication. Destructive changes and severe compression of the T2 vertebral body again noted. Surgical drain is been removed and overlying skin deborah of the lower cervical and thoracic region remain in place. There has been interval development of a large fluid collection in the posterior soft tissues overlying the surgicalbed measuring approximately 7 cm in cephalocaudal length maximum transverse diameter of 6.2 cm AP by 11.2 cm transverse on image one series 8 overlying the lower cervical and upper thoracic vertebralbodies, this collection does not communicate with the thecal sac and is likely a large postoperative seroma, it contains no air bubbles to suggest an abscess which is less likely. There is no associated wall enhancement of this fluid collection. Surrounding subcutaneous edema is noted. CT THORACIC SPINE: Severe compression pathologic fracture deformity of the T7 vertebral body has progressed since the prior exam now with vertebral plana deformity. Extensive destructive changes of this vertebra extending into the left-sided pedicle are noted. No obvious enhancing tumor noted within the spinal canal.There is 5 mm of retropulsion of the posterior inferior corner of this fractured vertebral body into the spinal canal noted narrowing of the midline thecal sac diameter to 6 mm with some mild compression of the right thoracic spinal cord not seen on the prior exam. It is difficult to estimate extent of any epidural tumor that may be present at this level. Remaining vertebrae demonstrate no compression fractures, with diffuse marrow abnormalities consistent with metastatic disease.. No other significant spinal stenosis is seen. Impression: 1. Interval progression of severe pathologic fracture of the T7 vertebral body now withvertebral plana, extensive destructive changes including the left-sided pedicle. Interval development of 5 mm of retropulsion of the bone fragment into the spinal canal to the right of midline now with mild compression of the right thoracic spinal cord not seen on the prior exam with 6 mm midline AP thecal sac diameter. 2. Postoperative changes of posterior instrumented fixation from C7 to T4 as noted on 11/11/2022 bridging pathologic fracture at the T2 level. New superficial fluid collection in the posterior soft tissues overlying the surgical bed without communication with the thecal sac likely a postoperative se leonard measuring 6 x 11 x 7 cm, this is unlikely to represent an abscess. CRITICAL DOCUMENT ONLY finding communicated directly to Marcello Fisehr DO and documented in the [employer] system on 12/02/2022 12:31 AM, Message ID [id number]. -------- FINAL REPORT -------- Dictated By: Ricky Walters Dictated Date: 12/02/2022 00:09 Assigned Physician: Ricky Walters Reviewed and Electronically Signed By: Ricky Walters Signed Date: 12/02/2022 00:32 Workstation ID: [id number] Transcribed By: Self Edit Transcribed Date: 12/02/2022 00:09 CT Thoracic Spine w Contrast Narrative: EXAMINATION TYPE: CT CERVICAL SPINE W CONTRAST, CT THORACIC SPINE W CONTRAST DATE OF EXAM ORDERED: 12/01/2022 10:12 PM HISTORY: post-op infection concern, recent thoracic lower cervical surgery on 11/11. Drainage from surgical wound, CONTRAST USED: 100 mL ISOVUE-300 COMPARISON: CT thoracic spine 11/11/2022, MRI cervical and thoracic spine 11/10/2022 TECHNIQUE: Contiguous axial, coronal and sagittal images were obtained through the cervical and thoracic spine following intravenous contrast administration. FINDINGS: CT CERVICAL SPINE: Skull base is intact. Atlantoaxial joint is unremarkable. There is convex left scoliosis noted. The vertebrae are otherwise normally aligned. No acute cervical fracture is seen. Disc spaces well-preserved from C2-3 through C4-5. At C5-6 again noted is bulging disc and osteophyte complex without significant spinal stenosis. At C6-7 there is also mild bulging the disc with no significant spinal stenosis. Again noted are changes of posterior instrumented fixation with spinal rods and pedicle screws in the C7 and T1 vertebrae as well as the T3 and T4 vertebrae without acute complication. Destructive changes and severe compression of the T2 vertebral body again noted. Surgical drain is been removed and overlying skin deborah of the lower cervical and thoracic region remain in place. There has been interval development of a large fluid collection in the posterior soft tissues overlying the surgicalbed measuring approximately 7 cm in cephalocaudal length maximum transverse diameter of 6.2 cm AP by 11.2 cm transverse on image one series 8 overlying the lower cervical and upper thoracic vertebralbodies, this collection does not communicate with the thecal sac and is likely a large postoperative seroma, it contains no air bubbles to suggest an abscess which is less likely. There is no associated wall enhancement of this fluid collection. Surrounding subcutaneous edema is noted. CT THORACIC SPINE: Severe compression pathologic fracture deformity of the T7 vertebral body has progressed since the prior exam now with vertebral plana deformity. Extensive destructive changes of this vertebra extending into the left-sided pedicle are noted. No obvious enhancing tumor noted within the spinal canal.There is 5 mm of retropulsion of the posterior inferior corner of this fractured vertebral body into the spinal canal noted narrowing of the midline thecal sac diameter to 6 mm with some mild compression of the right thoracic spinal cord not seen on the prior exam. It is difficult to estimate extent of any epidural tumor that may be present at this level. Remaining vertebrae demonstrate no compression fractures, with diffuse marrow abnormalities consistent with metastatic disease.. No other significant spinal stenosis is seen. Impression: 1. Interval progression of severe pathologic fracture of the T7 vertebral body now withvertebral plana, extensive destructive changes including the left-sided pedicle. Interval development of 5 mm of retropulsion of the bone fragment into the spinal canal to the right of midline now with mild compression of the right thoracic spinal cord not seen on the prior exam with 6 mm midline AP thecal sac diameter. 2. Postoperative changes of posterior instrumented fixation from C7 to T4 as noted on 11/11/2022 bridging pathologic fracture at the T2 level. New superficial fluid collection in the posterior soft tissues overlying the surgical bed without communication with the thecal sac likely a postoperative se leonard measuring 6 x 11 x 7 cm, this is unlikely to represent an abscess. CRITICAL DOCUMENT ONLY finding communicated directly to Marcello Fisher DO and documented in the [employer] system on 12/02/2022 12:31 AM, Message ID [id number]. -------- FINAL REPORT -------- Dictated By: Ricky Walters Dictated Date: 12/02/2022 00:09 Assigned Physician: Ricky Walters Reviewed and Electronically Signed By: Ricky Walters Signed Date: 12/02/2022 00:32 Workstation ID: [id number] Transcribed By: Self Edit Transcribed Date: 12/02/2022 00:09 Allergies: No Known Allergies * Zofia Cummings LPN - 12/09/2022 4:42 AM EDT Goals: Problem: Cognitive: Goal: Mental Status/LOC/Awareness Outcome: Progressing Goal: Communication/Sensory Outcome: Progressing Goal: Behavior Outcome: Progressing Problem: Skin Integrity: Goal: Skin integrity will improve Outcome: Progressing Clinical Goals for the Shift: Decrease pain/ABX as ordered Identify possible barriers to meeting goals/advancing plan of care: Mobility Stability of the patient: Moderately Stable - Low risk of patient condition declining or worsening End of Shift Summary: Awaiting precert, will continue to monitor. * Lynda Howard MD - 12/08/2022 11:52 AM EDT Images from the original note were not included. Progress Note Chief Complaint/Visit Reason: Abdominal bloating Impression: This patient is a 67-year-old male with past medical history of hypertension, hyperlipidemia, hypothyroidism, GERD, and recent diagnosis of multiple myeloma with T2 and T7 pathological fractures withepidural tumor and subsequent cord compression. He underwent thoracic decompression and removal of T2 and T7 epidural tumor by laminectomy, facetectomy, and foraminotomy as well as posterior thoracicfusion of C7-T4 by screw fixation on 11/11/[address] Tao. Patient had been doing therapy at [facility] in [place] and staff noted that his incision began looking erythematous, with copious drainage. He was sent back to [facility] for evaluation by neurosurgery. Went to IR on 12/02 for drain placement and fluid sent for culture, no growth. He remained clinically very stable. [facility] [place], now awaiting pre-CERT for discharge. Diagnoses: Postoperative wound infection versus seroma, favor seroma, s/p drain placement Multiple myeloma with T2 and T7 pathological fractures with epidural tumor status post C7-T4 posterior thoracic fusion with fixation and removal of epidural tumor with laminectomy, facetectomy, and foraminotomy by Dr. Tao on 11/11/2022. 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 Hypertension. Hyperlipidemia. Hypothyroidism. GERD. Plan: Drain placed in IR putting out very little additional fluid. Neurosurgery will discontinue on the day of discharge per their notes. Wound care/dressing changes to mid thoracic surgical wound every 5 day Blood and wound cultures remained negative. Completing Ancef today Deborah removed on 12/03 Patient set up for radiation down the road but may be delayed due to wound healing. PT/OT continues to recommend SNF. Changed Vanegas catheter in the ER. Continue amlodipine, atorvastatin, levothyroxine, metoprolol, Protonix Will add simethicone today for abdominal distention and bloating DVT prophylaxis: Lovenox, cleared by neurosurgery on 12/05. Code Status: Full code. Disposition: Patient is medically stable for discharge back to [facility] in [place], awaiting pre-CERT. Discussedwith case management. Follow-up with Dr. Tao in 2 months, added to depart at discharge. Previously, patient lived alone, was working full-time in his job at the [employer] in [facility] prior to his diagnosis of multiple myeloma in October 2022. His brother lives in [facility] and is his POA. No spouse or children. I talked to his Sister Coty today. She is very concerned about his follow-up with oncology and radiation oncology. I sent an [employer] message to Dr. Woodall and also Dr. Guerra, as the patient was supposed to see Dr. Lagunas tomorrow which obviously will be canceled; And the sister wanted to know when radiation can be started. Just heard from Dr. Barrett, they put him preliminarily on their schedule for radiation on Thursday 12/14 Lynda Howard MD [facility] ([facility]) Subjective: Patient is awake and alert, chatty and appropriate. Complaining of some abdominal distention and bloating. We discussed and decided to add simethicone today. His drain is working well. His pain is controlled. Review of Systems Vitals and Physical exam: Patient Vitals for the past 24 hrs: BP Temp Temp src Pulse SpO2 12/08/22 0750 99/59 36.7 C (98.1 F) Oral 77 96 % 12/08/22 0424 117/74 36.1 C (97 F) -- 92 91 % 12/07/22 2329 110/69 37.1 C (98.8 F) Oral 58 98 % 12/07/22 1920 113/72 37 C (98.6 F) Oral 65 95 % 12/07/22 1511 117/68 36.5 C (97.7 F) Oral 66 98 % Body mass index is 25.1 kg/m . Intake/Output Summary (Last 24 hours) at 12/08/2022 1152 Last data filed at 12/08/2022 0600 Gross per 24 hour Intake 480 ml Output 2965 ml Net -2485 ml Physical Exam Constitutional: General: He is not in acute distress. Appearance: He is normal weight. He is not ill-appearing or toxic-appearing. HENT: Head: Normocephalic and atraumatic. Mouth/Throat: Mouth: Mucous membranes are moist. Eyes: Extraocular Movements: Extraocular movements intact. Neck: Comments: Patient has a midline incision from his mid neck down to the thoracic region, surroundingerythema resolved. Deborah have been removed. Drain remains in place but no additional output. Cardiovascular: Rate and Rhythm: Normal rate and regular rhythm. Heart sounds: No murmur heard. Pulmonary: Effort: Pulmonary effort is normal. Breath sounds: Normal breath sounds. No wheezing or rhonchi. Abdominal: General: Bowel sounds are normal. Palpations: Abdomen is soft. Tenderness: There is no abdominal tenderness. Comments: Bloated Musculoskeletal: Right lower leg: No edema. Left lower leg: No edema. Skin: General: Skin is dry. Coloration: Skin is pale. Neurological: Mental Status: He is alert and oriented to person, place, and time. Comments: Cognitively intact, excellent historian. Psychiatric: Thought Content: Thought content normal. Recent Lab Results: Results from last 7 days Lab Units 12/08/22 0430 12/07/22 0425 12/06/22 0513 12/05/22 0415 12/04/22 0434 12/03/22 0450 12/01/22 2044 SODIUM mmol/L 135* 136 135* 137 137 137 135* POTASSIUM mmol/L 3.9 3.9 4.1 4.2 4.0 3.8 3.5* CHLORIDE mmol/L 99 100 100 103 102 102 99 CO2 mmol/L 30 29 30 28 27 28 28 BUN mg/dL 14 16 13 15 15 17 18 CREATININE mg/dL 0.55* 0.58* 0.59* 0.56* 0.54* 0.72 0.54* Results from last 7 days Lab Units 12/06/22 0513 12/05/22 1024 12/01/22 2044 WBC AUTO K/mcL 5.7 5.3 6.6 TOTAL COUNTED 100 -- 100 HEMOGLOBIN g/dL 9.5* 10.3* 10.5* HEMATOCRIT % 29.9* 33.5* 32.2* PLATELETS K/mcL 264 249 167 MCV FL 94.3 95.7 93.1 Recent Imaging Findings: CT Guided Perc Drain Plcmnt Narrative: CT guided abscess drain placement INDICATION: Fluid collection postoperatively STAFF: Palmer DEE FLUOROSCOPY TIME: None. COMPLICATIONS: None EBL: <5 ml MEDICATIONS: 2% lidocaine local. PROCEDURE: Time-out was performed to confirm the correct patient, procedure, and site. The patient was placed prone. A site overlying the back was marked prepped and draped in sterile fashion. Skin prep was allowed to fully dry. The skin was anesthetized with LIDOCAINE. Under CT guidance a 12-Austrian pigtail drainage catheter was placed within the collection. 10 mL of serosanguineous fluid was aspirated and sent for analysis. The catheter was sutured to the skin and then attached togravity drainage. PATIENT DISPOSITION: Discharged from the department in stable condition. Impression: Technically successful CT-guided 12-Austrian drain placement within postoperative fluid collection in the upper back -------- FINAL REPORT -------- Dictated By: Louie Chakraborty Dictated Date: 12/02/2022 14:39 Assigned Physician: Louie Chakraborty Reviewed and Electronically Signed By: Louie Chakraborty Signed Date: 12/02/2022 14:41 Workstation ID: [id number] Transcribed By: Self Edit Transcribed Date: 12/02/2022 14:39 MR Thoracic Spine wo and w Contrast Narrative: EXAMINATION TYPE: MR THORACIC SPINE WO AND W CONTRAST, MR CERVICAL SPINE WO AND W CONTRAST DATE OF EXAM ORDERED: 12/02/2022 2:19 AM HISTORY: pathologic T7 compression fracture with retropulsion, post op fluid collection, likely seroma COMPARISON: CT 12/01/2022, MR 11/10/2022 TECHNIQUE: MR cervical and thoracic spine with and without contrast FINDINGS: THORACIC SPINE: At T7, there is an enhancing mass with associated pathologic compression fracture. There has been progression of vertebral body height loss since the prior examination from 11/10/2022, as well as increased retropulsion of bony fragments into the spinal canal at this level. Retropulsion of bony fragments results in fairly severe narrowing of the thecal sac at this level, as well as cord compressionand mildly increased cord signal intensity from the T6-7 through T7-8 levels. The extent of compression is improved compared to the prior preoperative examination from 11/10/2022. Posterior laminectomy has been performed at the T5 level. Smaller enhancing lesions are present in the T10 and T11 vertebral bodies. There has been resection of a mass previously noted at the T2 level, spinal fusion hardware from [employer] T4. A small amount of residual enhancing tissue in the left neural foramen at T2-3 may represent granulation tissue or residual tumor. Previously noted cord compression in this area has improved. In the posterior paraspinal soft tissues, there is a fluid collection along the midline and slightly right of midline extending from the cervicothoracic junction to the T8 level. This abuts the spinous processes and abuts the facet joints near the levels of the surgical hardware. This is also contiguous with the laminectomy defects at the T7 level and in the upper thoracic spine at the areas of fusion. No additional cord signal abnormality is identified. Postsurgical changes are present elsewhere in the paraspinal soft tissues. Trace bilateral pleural effusions are noted. CERVICAL SPINE: Posterior fusion has been performed from C7 through T4. Focal kyphosis is noted in the upper thoracic spine. Alignment is otherwise maintained. There is been resection of the previously noted mass atthe T2 level. There is some residual enhancing tissue within the left foramen at the T2-3 level, which could represent residual tumor or granulation tissue. No additional discrete lesion is identified. No abnormal cord signal intensity is identified in the cervical cord. The craniocervical junction is intact. Postsurgical changes are present in the posterior paraspinal soft tissues in the lower cervical andupper thoracic region. In the posterior paraspinal soft tissues near the midline into the right of midline, there is a peripherally enhancing fluid collection extending from the C5 level inferiorly into the upper thoracic region. This extends to the laminectomy defect at the lower cervical and upper thoracic spine. There is no significant associated mass effect on the thecal sac. Evaluation of the lower cervical spine is somewhat limited by susceptibility artifact from surgicalhardware. Multilevel mild to moderate degenerative changes are present in the lower cervical spine,grossly similar to the prior examination. Impression: At the T7 level, there has been progression of a severe compression fracture and retropulsion of bony fragments into the spinal canal. Posterior decompression has been performed at this level. There is compression of the cord at this level with increased cord signal intensity as above. The overall extent of cord compression at this level is decreased compared to the prior postoperative examination from 11/10/2022. Resection of the previously noted mass at the T2 level. There is a small residual enhancing tissue in the left T2-T3 neural foramen, which may represent granulation tissue or an element of residual mass. Cord compression in this area has improved. Enhancing masses in the T10 and T11 vertebral bodies, not significantly changed. In the posterior paraspinal soft tissues, there is a large fluid collection at the midline and slightly right of midline, which extends from approximately the C5 level to the T8 level. There is some extension of the fluid collection to the laminectomy defects at T2 and T7. Some peripheral enhancement is present. This may represent a postoperative seroma, however, sterility is not confirmed. Clinical correlation is recommended. -------- FINAL REPORT -------- Dictated By: Shay Dallas Dictated Date: 12/02/2022 07:20 Assigned Physician: Shay Dallas Reviewed and Electronically Signed By: Shay Dallas Signed Date: 12/02/2022 07:48 Workstation ID: [id number] Transcribed By: Self Edit Transcribed Date: 12/02/2022 07:20 MR Cervical Spine wo and w Contrast Narrative: EXAMINATION TYPE: MR THORACIC SPINE WO AND W CONTRAST, MR CERVICAL SPINE WO AND W CONTRAST DATE OF EXAM ORDERED: 12/02/2022 2:19 AM HISTORY: pathologic T7 compression fracture with retropulsion, post op fluid collection, likely seroma COMPARISON: CT 12/01/2022, MR 11/10/2022 TECHNIQUE: MR cervical and thoracic spine with and without contrast FINDINGS: THORACIC SPINE: At T7, there is an enhancing mass with associated pathologic compression fracture. There has been progression of vertebral body height loss since the prior examination from 11/10/2022, as well as increased retropulsion of bony fragments into the spinal canal at this level. Retropulsion of bony fragments results in fairly severe narrowing of the thecal sac at this level, as well as cord compressionand mildly increased cord signal intensity from the T6-7 through T7-8 levels. The extent of compression is improved compared to the prior preoperative examination from 11/10/2022. Posterior laminectomy has been performed at the T5 level. Smaller enhancing lesions are present in the T10 and T11 vertebral bodies. There has been resection of a mass previously noted at the T2 level, spinal fusion hardware from [employer] T4. A small amount of residual enhancing tissue in the left neural foramen at T2-3 may represent granulation tissue or residual tumor. Previously noted cord compression in this area has improved. In the posterior paraspinal soft tissues, there is a fluid collection along the midline and slightly right of midline extending from the cervicothoracic junction to the T8 level. This abuts the spinous processes and abuts the facet joints near the levels of the surgical hardware. This is also contiguous with the laminectomy defects at the T7 level and in the upper thoracic spine at the areas of fusion. No additional cord signal abnormality is identified. Postsurgical changes are present elsewhere in the paraspinal soft tissues. Trace bilateral pleural effusions are noted. CERVICAL SPINE: Posterior fusion has been performed from C7 through T4. Focal kyphosis is noted in the upper thoracic spine. Alignment is otherwise maintained. There is been resection of the previously noted mass atthe T2 level. There is some residual enhancing tissue within the left foramen at the T2-3 level, which could represent residual tumor or granulation tissue. No additional discrete lesion is identified. No abnormal cord signal intensity is identified in the cervical cord. The craniocervical junction is intact. Postsurgical changes are present in the posterior paraspinal soft tissues in the lower cervical andupper thoracic region. In the posterior paraspinal soft tissues near the midline into the right of midline, there is a peripherally enhancing fluid collection extending from the C5 level inferiorly into the upper thoracic region. This extends to the laminectomy defect at the lower cervical and upper thoracic spine. There is no significant associated mass effect on the thecal sac. Evaluation of the lower cervical spine is somewhat limited by susceptibility artifact from surgicalhardware. Multilevel mild to moderate degenerative changes are present in the lower cervical spine,grossly similar to the prior examination. Impression: At the T7 level, there has been progression of a severe compression fracture and retropulsion of bony fragments into the spinal canal. Posterior decompression has been performed at this level. There is compression of the cord at this level with increased cord signal intensity as above. The overall extent of cord compression at this level is decreased compared to the prior postoperative examination from 11/10/2022. Resection of the previously noted mass at the T2 level. There is a small residual enhancing tissue in the left T2-T3 neural foramen, which may represent granulation tissue or an element of residual mass. Cord compression in this area has improved. Enhancing masses in the T10 and T11 vertebral bodies, not significantly changed. In the posterior paraspinal soft tissues, there is a large fluid collection at the midline and slightly right of midline, which extends from approximately the C5 level to the T8 level. There is some extension of the fluid collection to the laminectomy defects at T2 and T7. Some peripheral enhancement is present. This may represent a postoperative seroma, however, sterility is not confirmed. Clinical correlation is recommended. -------- FINAL REPORT -------- Dictated By: Shay Dallas Dictated Date: 12/02/2022 07:20 Assigned Physician: Shay Dallas Reviewed and Electronically Signed By: Shay Dallas Signed Date: 12/02/2022 07:48 Workstation ID: [id number] Transcribed By: Self Edit Transcribed Date: 12/02/2022 07:20 CT Cervical Spine w Contrast Narrative: EXAMINATION TYPE: CT CERVICAL SPINE W CONTRAST, CT THORACIC SPINE W CONTRAST DATE OF EXAM ORDERED: 12/01/2022 10:12 PM HISTORY: post-op infection concern, recent thoracic lower cervical surgery on 11/11. Drainage from surgical wound, CONTRAST USED: 100 mL [id number] COMPARISON: CT thoracic spine 11/11/2022, MRI cervical and thoracic spine 11/10/2022 TECHNIQUE: Contiguous axial, coronal and sagittal images were obtained through the cervical and thoracic spine following intravenous contrast administration. FINDINGS: CT CERVICAL SPINE: Skull base is intact. Atlantoaxial joint is unremarkable. There is convex left scoliosis noted. The vertebrae are otherwise normally aligned. No acute cervical fracture is seen. Disc spaces well-preserved from C2-3 through C4-5. At C5-6 again noted is bulging disc and osteophyte complex without significant spinal stenosis. At C6-7 there is also mild bulging the disc with no significant spinal stenosis. Again noted are changes of posterior instrumented fixation with spinal rods and pedicle screws in the C7 and T1 vertebrae as well as the T3 and T4 vertebrae without acute complication. Destructive changes and severe compression of the T2 vertebral body again noted. Surgical drain is been removed and overlying skin deborah of the lower cervical and thoracic region remain in place. There has been interval development of a large fluid collection in the posterior soft tissues overlying the surgicalbed measuring approximately 7 cm in cephalocaudal length maximum transverse diameter of 6.2 cm AP by 11.2 cm transverse on image one series 8 overlying the lower cervical and upper thoracic vertebralbodies, this collection does not communicate with the thecal sac and is likely a large postoperative seroma, it contains no air bubbles to suggest an abscess which is less likely. There is no associated wall enhancement of this fluid collection. Surrounding subcutaneous edema is noted. CT THORACIC SPINE: Severe compression pathologic fracture deformity of the T7 vertebral body has progressed since the prior exam now with vertebral plana deformity. Extensive destructive changes of this vertebra extending into the left-sided pedicle are noted. No obvious enhancing tumor noted within the spinal canal.There is 5 mm of retropulsion of the posterior inferior corner of this fractured vertebral body into the spinal canal noted narrowing of the midline thecal sac diameter to 6 mm with some mild compression of the right thoracic spinal cord not seen on the prior exam. It is difficult to estimate extent of any epidural tumor that may be present at this level. Remaining vertebrae demonstrate no compression fractures, with diffuse marrow abnormalities consistent with metastatic disease.. No other significant spinal stenosis is seen. Impression: 1. Interval progression of severe pathologic fracture of the T7 vertebral body now withvertebral plana, extensive destructive changes including the left-sided pedicle. Interval development of 5 mm of retropulsion of the bone fragment into the spinal canal to the right of midline now with mild compression of the right thoracic spinal cord not seen on the prior exam with 6 mm midline AP thecal sac diameter. 2. Postoperative changes of posterior instrumented fixation from C7 to T4 as noted on 11/11/2022 bridging pathologic fracture at the T2 level. New superficial fluid collection in the posterior soft tissues overlying the surgical bed without communication with the thecal sac likely a postoperative se leonard measuring 6 x 11 x 7 cm, this is unlikely to represent an abscess. CRITICAL DOCUMENT ONLY finding communicated directly to Marcello Fisher DO and documented in the [employer] system on 12/02/2022 12:31 AM, Message ID [id number]. -------- FINAL REPORT -------- Dictated By: Ricky Walters Dictated Date: 12/02/2022 00:09 Assigned Physician: Ricky Walters Reviewed and Electronically Signed By: Ricky Walters Signed Date: 12/02/2022 00:32 Workstation ID: [id number] Transcribed By: Self Edit Transcribed Date: 12/02/2022 00:09 CT Thoracic Spine w Contrast Narrative: EXAMINATION TYPE: CT CERVICAL SPINE W CONTRAST, CT THORACIC SPINE W CONTRAST DATE OF EXAM ORDERED: 12/01/2022 10:12 PM HISTORY: post-op infection concern, recent thoracic lower cervical surgery on 11/11. Drainage from surgical wound, CONTRAST USED: 100 mL ISOVUE-300 COMPARISON: CT thoracic spine 11/11/2022, MRI cervical and thoracic spine 11/10/2022 TECHNIQUE: Contiguous axial, coronal and sagittal images were obtained through the cervical and thoracic spine following intravenous contrast administration. FINDINGS: CT CERVICAL SPINE: Skull base is intact. Atlantoaxial joint is unremarkable. There is convex left scoliosis noted. The vertebrae are otherwise normally aligned. No acute cervical fracture is seen. Disc spaces well-preserved from C2-3 through C4-5. At C5-6 again noted is bulging disc and osteophyte complex without significant spinal stenosis. At C6-7 there is also mild bulging the disc with no significant spinal stenosis. Again noted are changes of posterior instrumented fixation with spinal rods and pedicle screws in the C7 and T1 vertebrae as well as the T3 and T4 vertebrae without acute complication. Destructive changes and severe compression of the T2 vertebral body again noted. Surgical drain is been removed and overlying skin deborah of the lower cervical and thoracic region remain in place. There has been interval development of a large fluid collection in the posterior soft tissues overlying the surgicalbed measuring approximately 7 cm in cephalocaudal length maximum transverse diameter of 6.2 cm AP by 11.2 cm transverse on image one series 8 overlying the lower cervical and upper thoracic vertebralbodies, this collection does not communicate with the thecal sac and is likely a large postoperative seroma, it contains no air bubbles to suggest an abscess which is less likely. There is no associated wall enhancement of this fluid collection. Surrounding subcutaneous edema is noted. CT THORACIC SPINE: Severe compression pathologic fracture deformity of the T7 vertebral body has progressed since the prior exam now with vertebral plana deformity. Extensive destructive changes of this vertebra extending into the left-sided pedicle are noted. No obvious enhancing tumor noted within the spinal canal.There is 5 mm of retropulsion of the posterior inferior corner of this fractured vertebral body into the spinal canal noted narrowing of the midline thecal sac diameter to 6 mm with some mild compression of the right thoracic spinal cord not seen on the prior exam. It is difficult to estimate extent of any epidural tumor that may be present at this level. Remaining vertebrae demonstrate no compression fractures, with diffuse marrow abnormalities consistent with metastatic disease.. No other significant spinal stenosis is seen. Impression: 1. Interval progression of severe pathologic fracture of the T7 vertebral body now withvertebral plana, extensive destructive changes including the left-sided pedicle. Interval development of 5 mm of retropulsion of the bone fragment into the spinal canal to the right of midline now with mild compression of the right thoracic spinal cord not seen on the prior exam with 6 mm midline AP thecal sac diameter. 2. Postoperative changes of posterior instrumented fixation from C7 to T4 as noted on 11/11/2022 bridging pathologic fracture at the T2 level. New superficial fluid collection in the posterior soft tissues overlying the surgical bed without communication with the thecal sac likely a postoperative se leonard measuring 6 x 11 x 7 cm, this is unlikely to represent an abscess. CRITICAL DOCUMENT ONLY finding communicated directly to Marcello Fisher DO and documented in the [employer] system on 12/02/2022 12:31 AM, Message ID [id number]. -------- FINAL REPORT -------- Dictated By: Ricky Walters Dictated Date: 12/02/2022 00:09 Assigned Physician: Ricky Walters Reviewed and Electronically Signed By: Ricky Walters Signed Date: 12/02/2022 00:32 Workstation ID: [id number] Transcribed By: Self Edit Transcribed Date: 12/02/2022 00:09 Allergies: No Known Allergies * Swapna Chirinos RN - 12/08/2022 11:29 AM EDT Goals: Clinical Goals for the Shift: Decrease pain/ABX as ordered Identify possible barriers to meeting goals/advancing plan of care: Stability of the patient: Moderately Stable - Low risk of patient condition declining or worsening End of Shift Summary: awaiting for precet * Sophia Miller RN - 12/08/2022 8:32 AM EDT 12/08/22 0832 Discharge Planning Patient expects to be discharged to: [facility] pending precert approval Patient remains in precert. Inquired with facility regarding precert status. Updated attending Lynda Howard MD of [facility]. Sophia MONROE child adolescent psychiatrist [phone] or secure chat * Malissa Claros NP - 12/08/2022 7:09 AM EDT Neurosurgery Brief Note Patient: Armand Barron Room: [id number] Age: 67 y.o. 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 Tao on 11/11/22. Presented 12/01 for evaluation of his incision of his posterior neck incision; concern for infection d/t significant drainage and erythema to the site, deborah in place. 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 New imaging shows progression of severe T7 pathologic compression fx and retropulsion of bony fragments into the spinal canal, and a post-op fluid collection. IR was consulted and a drain was placed 12/02. Wound care was consulted for incision. Wound care management. Wound care/dressing changes to mid thoracic surgical wound every 5 days as follows: Remove old dressing and alginate packing from small open area, irrigate the open area with NS, pack the 2 cm deep site of where there was a seroma using the alginate Ag rope packing (in room), cover with a long foam bordered dressing. Please date the dressing. T7 Pathologic Compression Fracture Post Op Fluid Collection --12/02 Drain; upper midline back - placed by IR (will DC drain right before patient discharges) - Empty per shift and record output - On Ancef --Cultures remain pending, preliminary without growth - Anaerobic final pending - Aspirate Final negative -- Wound care - as written - CONTINUE UPON TRANSFER TO SNF -- Activity as tolerated -- VTE: BLE SCD's, Lovenox -- Pain per Primary Acute/Chronic Medical Issues - --Primary and Consultants to manage - appreciate Disposition/Plan --Keep drain - plan to remove @ discharge --Culture is negative --Return to [facility], requested precert --Okay to discharge from a Neurosurgical perspective, will DC drain the day the patient is leaving (review output) --This hospital visit can serve as 1 month F/U with Dr Tao - would like to follow up in 2 months in office or sooner if indicated --Patient is aware that radiation may be delayed for wound healing reasons --Will follow peripherally and will pull drain on day of discharge Malissa Claros NP Send message via KDW with further questions. Neuro Exam: -Alert & orientated x4 -Speech is fluent, clear, able to follow commands -EMOI -Increased sensation on BLE today -BUE 5/, BLE DF/PF 1/5 * Remedios Ward RN - 12/07/2022 6:43 PM EDT Problem: Skin Integrity: Goal: Will not develop new pressure injury Outcome: Progressing Problem: Activity: Goal: Mobility will improve Outcome: Progressing Problem: Cognitive: Goal: Understanding of ways to prevent future skin breakdown will improve Outcome: Progressing Problem: Nutritional: Goal: Nutritional status will improve Outcome: Progressing Problem: Physical Regulation: Goal: Signs and symptoms of infection will decrease Outcome: Progressing Goal: Diagnostic test results will improve Outcome: Progressing Goals: Clinical Goals for the Shift: Decrease pain/ABX as ordered Identify possible barriers to meeting goals/advancing plan of care: impaired mobility Stability of the patient: Moderately Stable - Low risk of patient condition declining or worsening End of Shift Summary: will continue to monitor * Sophia Miller RN - 12/07/2022 10:24 AM EDT 12/07/22 1023 Discharge Planning Patient expects to be discharged to: [facility] Does the patient need discharge transport arranged? Yes Has discharge transport been arranged? No Patient with discharge order to SNF today pending precert. Inquired with facility about precert status. 1505: Patient remains in precert for SNF stay to return to [facility]. Received voice message from patient's sister Coty and she would like a call from the attending to get an update of thepatient's plan of care. Updated attending and provided her with the sister's phone number to call. Sophia MONROE child adolescent psychiatrist [phone] or secure chat * Edyta Rick DO - 12/07/2022 9:34 AM EDT Images from the original note were not included. Progress Note Chief Complaint/Visit Reason: My incision did not look good and they sent me back to the hospital. Impression: This patient is a 67-year-old male with past medical history of hypertension, hyperlipidemia, hypothyroidism, GERD, and recent diagnosis of multiple myeloma with T2 and T7 pathological fractures withepidural tumor and subsequent cord compression. He underwent thoracic decompression and removal of T2 and T7 epidural tumor by laminectomy, facetectomy, and foraminotomy as well as posterior thoracicfusion of C7-T4 by screw fixation on 11/11/[address] Tao. Patient has been doing therapy at [facility] in [place] and staff noted that his incision began looking erythematous, copious drainage. He was sent back to [facility] for evaluation by neurosurgery. To IR on 12/02 for drain placement and fluid sent for culture, no growth. Wound care team consulted and gave wound care recommendations. Patient remained nontoxic-no fevers, no leukocytosis, wound cultures remained negative, clinically very stable. Patient to return to [facility] in [place], remained medically stable through the weekend awaiting pre- CERT for discharge. Diagnoses: Postoperative wound infection versus seroma, favor seroma. Multiple myeloma with T2 and T7 pathological fractures with epidural tumor status post C7-T4 posterior thoracic fusion with fixation and removal of epidural tumor with laminectomy, facetectomy, and foraminotomy by Dr. Tao on 11/11/2022. 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 Hypertension. Hyperlipidemia. Hypothyroidism. GERD. Plan: Drain placed in IR putting out very little additional fluid. Neurosurgery will discontinue on the day of discharge per their notes. Blood and wound cultures remained negative. Continue Ancef while inpatient, can DC at discharge if cultures remain negative. ET RN input appreciated-deborah removed on 12/03 and dressing change recommendations added to depart. Patient set up for radiation down the road but may be delayed due to wound healing. PT/OT continues to recommend SNF. Changed Vanegas catheter in the ER. Diet as tolerated. DVT prophylaxis: Lovenox, cleared by neurosurgery on 12/05. Code Status: Full code. Disposition: Patient is medically stable for discharge back to [facility] in [place], awaiting pre-CERT. Discussedwith case management. Follow-up with Dr. Tao in 2 months, added to depart at discharge. Previously, patient lived alone, was [place] full-time in [place] [employer] [place] prior to his diagnosis of multiple myeloma in October 2022. His brother lives in [facility] and is his POA. No spouse or children. Edyta Rick DO [facility] Subjective: Patient is again awake and alert, chatty and appropriate. Hoping to get patient to SNF later today,awaiting pre-CERT and he is aware. Review of Systems Vitals and Physical exam: Patient Vitals for the past 24 hrs: BP Temp Temp src Pulse Resp SpO2 12/07/22 0742 117/76 36.7 C (98.1 F) Oral 79 -- 94 % 12/07/22 0355 110/70 37.3 C (99.1 F) Oral 60 -- 98 % 12/06/22 2355 104/66 36.9 C (98.4 F) Oral 60 -- 94 % 12/06/22 1945 109/70 37 C (98.6 F) Oral 76 -- 96 % 12/06/22 1507 102/68 37 C (98.6 F) Oral 65 17 92 % 12/06/22 1211 110/69 36.9 C (98.4 F) Oral 66 18 97 % Body mass index is 25.1 kg/m . Intake/Output Summary (Last 24 hours) at 12/07/2022 0934 Last data filed at 12/07/2022 0600 Gross per 24 hour Intake -- Output 2800 ml Net -2800 ml Physical Exam Constitutional: General: He is not in acute distress. Appearance: He is normal weight. He is not ill-appearing or toxic-appearing. HENT: Head: Normocephalic and atraumatic. Mouth/Throat: Mouth: Mucous membranes are moist. Eyes: Extraocular Movements: Extraocular movements intact. Neck: Comments: Patient has a midline incision from his mid neck down to the thoracic region, surroundingerythema resolved. Deborah have been removed. Drain remains in place but no additional output. Cardiovascular: Rate and Rhythm: Normal rate and regular rhythm. Heart sounds: No murmur heard. Pulmonary: Effort: Pulmonary effort is normal. Breath sounds: Normal breath sounds. No wheezing or rhonchi. Abdominal: General: Bowel sounds are normal. Palpations: Abdomen is soft. Tenderness: There is no abdominal tenderness. Musculoskeletal: Right lower leg: No edema. Left lower leg: No edema. Skin: General: Skin is dry. Coloration: Skin is pale. Neurological: Mental Status: He is alert and oriented to person, place, and time. Comments: Cognitively intact, excellent historian. Psychiatric: Thought Content: Thought content normal. Recent Lab Results: Results from last 7 days Lab Units 12/07/22 0425 12/06/22 0513 12/05/22 0415 12/04/22 0434 12/03/22 0450 12/01/22 2044 SODIUM mmol/L 136 135* 137 137 137 135* POTASSIUM mmol/L 3.9 4.1 4.2 4.0 3.8 3.5* CHLORIDE mmol/L 100 100 103 102 102 99 CO2 mmol/L 29 30 28 27 28 28 BUN mg/dL 16 13 15 15 17 18 CREATININE mg/dL 0.58* 0.59* 0.56* 0.54* 0.72 0.54* Results from last 7 days Lab Units 12/06/22 0513 12/05/22 1024 12/01/22 2044 WBC AUTO K/mcL 5.7 5.3 6.6 TOTAL COUNTED 100 -- 100 HEMOGLOBIN g/dL 9.5* 10.3* 10.5* HEMATOCRIT % 29.9* 33.5* 32.2* PLATELETS K/mcL 264 249 167 MCV FL 94.3 95.7 93.1 Recent Imaging Findings: CT Guided Perc Drain Plcmnt Narrative: CT guided abscess drain placement INDICATION: Fluid collection postoperatively STAFF: Palmer DEE FLUOROSCOPY TIME: None. COMPLICATIONS: None EBL: <5 ml MEDICATIONS: 2% lidocaine local. PROCEDURE: Time-out was performed to confirm the correct patient, procedure, and site. The patient was placed prone. A site overlying the back was marked prepped and draped in sterile fashion. Skin prep was allowed to fully dry. The skin was anesthetized with LIDOCAINE. Under CT guidance a 12-Austrian pigtail drainage catheter was placed within the collection. 10 mL of serosanguineous fluid was aspirated and sent for analysis. The catheter was sutured to the skin and then attached togravity drainage. PATIENT DISPOSITION: Discharged from the department in stable condition. Impression: Technically successful CT-guided 12-Austrian drain placement within postoperative fluid collection in the upper back -------- FINAL REPORT -------- Dictated By: Louie Chakraborty Dictated Date: 12/02/2022 14:39 Assigned Physician: Louie Chakraborty Reviewed and Electronically Signed By: Louie Chakraborty Signed Date: 12/02/2022 14:41 Workstation ID: [id number] Transcribed By: Self Edit Transcribed Date: 12/02/2022 14:39 MR Thoracic Spine wo and w Contrast Narrative: EXAMINATION TYPE: MR THORACIC SPINE WO AND W CONTRAST, MR CERVICAL SPINE WO AND W CONTRAST DATE OF EXAM ORDERED: 12/02/2022 2:19 AM HISTORY: pathologic T7 compression fracture with retropulsion, post op fluid collection, likely seroma COMPARISON: CT 12/01/2022, MR 11/10/2022 TECHNIQUE: MR cervical and thoracic spine with and without contrast FINDINGS: THORACIC SPINE: At T7, there is an enhancing mass with associated pathologic compression fracture. There has been progression of vertebral body height loss since the prior examination from 11/10/2022, as well as increased retropulsion of bony fragments into the spinal canal at this level. Retropulsion of bony fragments results in fairly severe narrowing of the thecal sac at this level, as well as cord compressionand mildly increased cord signal intensity from the T6-7 through T7-8 levels. The extent of compression is improved compared to the prior preoperative examination from 11/10/2022. Posterior laminectomy has been performed at the T5 level. Smaller enhancing lesions are present in the T10 and T11 vertebral bodies. There has been resection of a mass previously noted at the T2 level, spinal fusion hardware from [id number] T4. A small amount of residual enhancing tissue in the left neural foramen at T2-3 may represent granulation tissue or residual tumor. Previously noted cord compression in this area has improved. In the posterior paraspinal soft tissues, there is a fluid collection along the midline and slightly right of midline extending from the cervicothoracic junction to the T8 level. This abuts the spinous processes and abuts the facet joints near the levels of the surgical hardware. This is also contiguous with the laminectomy defects at the T7 level and in the upper thoracic spine at the areas of fusion. No additional cord signal abnormality is identified. Postsurgical changes are present elsewhere in the paraspinal soft tissues. Trace bilateral pleural effusions are noted. CERVICAL SPINE: Posterior fusion has been performed from C7 through T4. Focal kyphosis is noted in the upper thoracic spine. Alignment is otherwise maintained. There is been resection of the previously noted mass atthe T2 level. There is some residual enhancing tissue within the left foramen at the T2-3 level, which could represent residual tumor or granulation tissue. No additional discrete lesion is identified. No abnormal cord signal intensity is identified in the cervical cord. The craniocervical junction is intact. Postsurgical changes are present in the posterior paraspinal soft tissues in the lower cervical andupper thoracic region. In the posterior paraspinal soft tissues near the midline into the right of midline, there is a peripherally enhancing fluid collection extending from the C5 level inferiorly into the upper thoracic region. This extends to the laminectomy defect at the lower cervical and upper thoracic spine. There is no significant associated mass effect on the thecal sac. Evaluation of the lower cervical spine is somewhat limited by susceptibility artifact from surgicalhardware. Multilevel mild to moderate degenerative changes are present in the lower cervical spine,grossly similar to the prior examination. Impression: At the T7 level, there has been progression of a severe compression fracture and retropulsion of bony fragments into the spinal canal. Posterior decompression has been performed at this level. There is compression of the cord at this level with increased cord signal intensity as above. The overall extent of cord compression at this level is decreased compared to the prior postoperative examination from 11/10/2022. Resection of the previously noted mass at the T2 level. There is a small residual enhancing tissue in the left T2-T3 neural foramen, which may represent granulation tissue or an element of residual mass. Cord compression in this area has improved. Enhancing masses in the T10 and T11 vertebral bodies, not significantly changed. In the posterior paraspinal soft tissues, there is a large fluid collection at the midline and slightly right of midline, which extends from approximately the C5 level to the T8 level. There is some extension of the fluid collection to the laminectomy defects at T2 and T7. Some peripheral enhancement is present. This may represent a postoperative seroma, however, sterility is not confirmed. Clinical correlation is recommended. -------- FINAL REPORT -------- Dictated By: Shay Dallas Dictated Date: 12/02/2022 07:20 Assigned Physician: Shay Dallas Reviewed and Electronically Signed By: Shay Dallas Signed Date: 12/02/2022 07:48 Workstation ID: [id number] Transcribed By: Self Edit Transcribed Date: 12/02/2022 07:20 MR Cervical Spine wo and w Contrast Narrative: EXAMINATION TYPE: MR THORACIC SPINE WO AND W CONTRAST, MR CERVICAL SPINE WO AND W CONTRAST DATE OF EXAM ORDERED: 12/02/2022 2:19 AM HISTORY: pathologic T7 compression fracture with retropulsion, post op fluid collection, likely seroma COMPARISON: CT 12/01/2022, MR 11/10/2022 TECHNIQUE: MR cervical and thoracic spine with and without contrast FINDINGS: THORACIC SPINE: At T7, there is an enhancing mass with associated pathologic compression fracture. There has been progression of vertebral body height loss since the prior examination from 11/10/2022, as well as increased retropulsion of bony fragments into the spinal canal at this level. Retropulsion of bony fragments results in fairly severe narrowing of the thecal sac at this level, as well as cord compressionand mildly increased cord signal intensity from the T6-7 through T7-8 levels. The extent of compression is improved compared to the prior preoperative examination from 11/10/2022. Posterior laminectomy has been performed at the T5 level. Smaller enhancing lesions are present in the T10 and T11 vertebral bodies. There has been resection of a mass previously noted at the T2 level, spinal fusion hardware from [id number] T4. A small amount of residual enhancing tissue in the left neural foramen at T2-3 may represent granulation tissue or residual tumor. Previously noted cord compression in this area has improved. In the posterior paraspinal soft tissues, there is a fluid collection along the midline and slightly right of midline extending from the cervicothoracic junction to the T8 level. This abuts the spinous processes and abuts the facet joints near the levels of the surgical hardware. This is also contiguous with the laminectomy defects at the T7 level and in the upper thoracic spine at the areas of fusion. No additional cord signal abnormality is identified. Postsurgical changes are present elsewhere in the paraspinal soft tissues. Trace bilateral pleural effusions are noted. CERVICAL SPINE: Posterior fusion has been performed from C7 through T4. Focal kyphosis is noted in the upper thoracic spine. Alignment is otherwise maintained. There is been resection of the previously noted mass atthe T2 level. There is some residual enhancing tissue within the left foramen at the T2-3 level, which could represent residual tumor or granulation tissue. No additional discrete lesion is identified. No abnormal cord signal intensity is identified in the cervical cord. The craniocervical junction is intact. Postsurgical changes are present in the posterior paraspinal soft tissues in the lower cervical andupper thoracic region. In the posterior paraspinal soft tissues near the midline into the right of midline, there is a peripherally enhancing fluid collection extending from the C5 level inferiorly into the upper thoracic region. This extends to the laminectomy defect at the lower cervical and upper thoracic spine. There is no significant associated mass effect on the thecal sac. Evaluation of the lower cervical spine is somewhat limited by susceptibility artifact from surgicalhardware. Multilevel mild to moderate degenerative changes are present in the lower cervical spine,grossly similar to the prior examination. Impression: At the T7 level, there has been progression of a severe compression fracture and retropulsion of bony fragments into the spinal canal. Posterior decompression has been performed at this level. There is compression of the cord at this level with increased cord signal intensity as above. The overall extent of cord compression at this level is decreased compared to the prior postoperative examination from 11/10/2022. Resection of the previously noted mass at the T2 level. There is a small residual enhancing tissue in the left T2-T3 neural foramen, which may represent granulation tissue or an element of residual mass. Cord compression in this area has improved. Enhancing masses in the T10 and T11 vertebral bodies, not significantly changed. In the posterior paraspinal soft tissues, there is a large fluid collection at the midline and slightly right of midline, which extends from approximately the C5 level to the T8 level. There is some extension of the fluid collection to the laminectomy defects at T2 and T7. Some peripheral enhancement is present. This may represent a postoperative seroma, however, sterility is not confirmed. Clinical correlation is recommended. -------- FINAL REPORT -------- Dictated By: Shay Dallas Dictated Date: 12/02/2022 07:20 Assigned Physician: Shay aDllas Reviewed and Electronically Signed By: Shay Dallas Signed Date: 12/02/2022 07:48 Workstation ID: [id number] Transcribed By: Self Edit Transcribed Date: 12/02/2022 07:20 CT Cervical Spine w Contrast Narrative: EXAMINATION TYPE: CT CERVICAL SPINE W CONTRAST, CT THORACIC SPINE W CONTRAST DATE OF EXAM ORDERED: 12/01/2022 10:12 PM HISTORY: post-op infection concern, recent thoracic lower cervical surgery on 11/11. Drainage from surgical wound, CONTRAST USED: 100 mL [id number] COMPARISON: CT thoracic spine 11/11/2022, MRI cervical and thoracic spine 11/10/2022 TECHNIQUE: Contiguous axial, coronal and sagittal images were obtained through the cervical and thoracic spine following intravenous contrast administration. FINDINGS: CT CERVICAL SPINE: Skull base is intact. Atlantoaxial joint is unremarkable. There is convex left scoliosis noted. The vertebrae are otherwise normally aligned. No acute cervical fracture is seen. Disc spaces well-preserved from C2-3 through C4-5. At C5-6 again noted is bulging disc and osteophyte complex without significant spinal stenosis. At C6-7 there is also mild bulging the disc with no significant spinal stenosis. Again noted are changes of posterior instrumented fixation with spinal rods and pedicle screws in the C7 and T1 vertebrae as well as the T3 and T4 vertebrae without acute complication. Destructive changes and severe compression of the T2 vertebral body again noted. Surgical drain is been removed and overlying skin deborah of the lower cervical and thoracic region remain in place. There has been interval development of a large fluid collection in the posterior soft tissues overlying the surgicalbed measuring approximately 7 cm in cephalocaudal length maximum transverse diameter of 6.2 cm AP by 11.2 cm transverse on image one series 8 overlying the lower cervical and upper thoracic vertebralbodies, this collection does not communicate with the thecal sac and is likely a large postoperative seroma, it contains no air bubbles to suggest an abscess which is less likely. There is no associated wall enhancement of this fluid collection. Surrounding subcutaneous edema is noted. CT THORACIC SPINE: Severe compression pathologic fracture deformity of the T7 vertebral body has progressed since the prior exam now with vertebral plana deformity. Extensive destructive changes of this vertebra extending into the left-sided pedicle are noted. No obvious enhancing tumor noted within the spinal canal.There is 5 mm of retropulsion of the posterior inferior corner of this fractured vertebral body into the spinal canal noted narrowing of the midline thecal sac diameter to 6 mm with some mild compression of the right thoracic spinal cord not seen on the prior exam. It is difficult to estimate extent of any epidural tumor that may be present at this level. Remaining vertebrae demonstrate no compression fractures, with diffuse marrow abnormalities consistent with metastatic disease.. No other significant spinal stenosis is seen. Impression: 1. Interval progression of severe pathologic fracture of the T7 vertebral body now withvertebral plana, extensive destructive changes including the left-sided pedicle. Interval development of 5 mm of retropulsion of the bone fragment into the spinal canal to the right of midline now with mild compression of the right thoracic spinal cord not seen on the prior exam with 6 mm midline AP thecal sac diameter. 2. Postoperative changes of posterior instrumented fixation from C7 to T4 as noted on 11/11/2022 bridging pathologic fracture at the T2 level. New superficial fluid collection in the posterior soft tissues overlying the surgical bed without communication with the thecal sac likely a postoperative se leonard measuring 6 x 11 x 7 cm, this is unlikely to represent an abscess. CRITICAL DOCUMENT ONLY finding communicated directly to Marcello Fisher DO and documented in the [employer] system on 12/02/2022 12:31 AM, Message ID [id number]. -------- FINAL REPORT -------- Dictated By: Ricky Walters Dictated Date: 12/02/2022 00:09 Assigned Physician: Ricky Walters Reviewed and Electronically Signed By: Ricky Walters Signed Date: 12/02/2022 00:32 Workstation ID: [id number] Transcribed By: Self Edit Transcribed Date: 12/02/2022 00:09 CT Thoracic Spine w Contrast Narrative: EXAMINATION TYPE: CT CERVICAL SPINE W CONTRAST, CT THORACIC SPINE W CONTRAST DATE OF EXAM ORDERED: 12/01/2022 10:12 PM HISTORY: post-op infection concern, recent thoracic lower cervical surgery on 11/11. Drainage from surgical wound, CONTRAST USED: 100 mL [id number] COMPARISON: CT thoracic spine 11/11/2022, MRI cervical and thoracic spine 11/10/2022 TECHNIQUE: Contiguous axial, coronal and sagittal images were obtained through the cervical and thoracic spine following intravenous contrast administration. FINDINGS: CT CERVICAL SPINE: Skull base is intact. Atlantoaxial joint is unremarkable. There is convex left scoliosis noted. The vertebrae are otherwise normally aligned. No acute cervical fracture is seen. Disc spaces well-preserved from C2-3 through C4-5. At C5-6 again noted is bulging disc and osteophyte complex without significant spinal stenosis. At C6-7 there is also mild bulging the disc with no significant spinal stenosis. Again noted are changes of posterior instrumented fixation with spinal rods and pedicle screws in the C7 and T1 vertebrae as well as the T3 and T4 vertebrae without acute complication. Destructive changes and severe compression of the T2 vertebral body again noted. Surgical drain is been removed and overlying skin deborah of the lower cervical and thoracic region remain in place. There has been interval development of a large fluid collection in the posterior soft tissues overlying the surgicalbed measuring approximately 7 cm in cephalocaudal length maximum transverse diameter of 6.2 cm AP by 11.2 cm transverse on image one series 8 overlying the lower cervical and upper thoracic vertebralbodies, this collection does not communicate with the thecal sac and is likely a large postoperative seroma, it contains no air bubbles to suggest an abscess which is less likely. There is no associated wall enhancement of this fluid collection. Surrounding subcutaneous edema is noted. CT THORACIC SPINE: Severe compression pathologic fracture deformity of the T7 vertebral body has progressed since the prior exam now with vertebral plana deformity. Extensive destructive changes of this vertebra extending into the left-sided pedicle are noted. No obvious enhancing tumor noted within the spinal canal.There is 5 mm of retropulsion of the posterior inferior corner of this fractured vertebral body into the spinal canal noted narrowing of the midline thecal sac diameter to 6 mm with some mild compression of the right thoracic spinal cord not seen on the prior exam. It is difficult to estimate extent of any epidural tumor that may be present at this level. Remaining vertebrae demonstrate no compression fractures, with diffuse marrow abnormalities consistent with metastatic disease.. No other significant spinal stenosis is seen. Impression: 1. Interval progression of severe pathologic fracture of the T7 vertebral body now withvertebral plana, extensive destructive changes including the left-sided pedicle. Interval development of 5 mm of retropulsion of the bone fragment into the spinal canal to the right of midline now with mild compression of the right thoracic spinal cord not seen on the prior exam with 6 mm midline AP thecal sac diameter. 2. Postoperative changes of posterior instrumented fixation from C7 to T4 as noted on 11/11/2022 bridging pathologic fracture at the T2 level. New superficial fluid collection in the posterior soft tissues overlying the surgical bed without communication with the thecal sac likely a postoperative se leonard measuring 6 x 11 x 7 cm, this is unlikely to represent an abscess. CRITICAL DOCUMENT ONLY finding communicated directly to Marcello Fisher DO and documented in the [employer] system on 12/02/2022 12:31 AM, Message ID [id number]. -------- FINAL REPORT -------- Dictated By: Ricky Walters Dictated Date: 12/02/2022 00:09 Assigned Physician: Ricky Walters Reviewed and Electronically Signed By: Ricky Walters Signed Date: 12/02/2022 00:32 Workstation ID: [id number] Transcribed By: Self Edit Transcribed Date: 12/02/2022 00:09 Allergies: No Known Allergies * Angelita Joshi PTA - 12/07/2022 9:27 AM EDT Physical Therapy Patient: Armand Barron Age: 67 y.o. Sex: male Infected wound [facility] Physical Therapy Treatment Multi-Disciplinary Rounding Report Ambulation: Walking Assistance: Not attempted, medical/safety concerns PLOF: Level of Long: Independent with mobility and functional transfers Type of Home: Subacute rehab Prior Function Comments: Independent prior to surgery, working on sitting and sitting balance, transfers at rehab DME Needs: TBD PT Discharge Recommendation: half-way facility placement Reason for current recommendation based on assessment: Pt demonstrates decreased balance, strength,endurance and mobility that increase risk of falls. SNF recommended at d/c to improve deficits, increase independence/safety with transfers and decrease risk of falls. SUBJECTIVE Pt pleasant and agreeable to therapy. He states he is feeling a little better but did not sleep well last night. OBJECTIVE Precautions: Precautions Medical Precautions: Fall Risk Safety Interventions: Call lock within reach, Bed alarm Orthopedic Precautions: Cervical Precautions Vitals/Pain: Pain Assessment Pain Assessment: 0-10 Pain Score: 4 Pain Type: Surgical pain Pain Location: Back Cognition: Cognition Arousal/Alertness: Appropriate responses to stimuli Orientation Level: Oriented X4 Following Commands: Follows all commands and directions without difficulty General Assessments: Activity Tolerance Endurance: Tolerates 30 min exercise with multiple rests Static Sitting Balance Static Sitting-Level of Assistance: Close supervision, Contact guard Static Sitting-Balance Support: Feet supported, Right upper extremity supported, Left upper extremity supported, Unilateral upper extremity supported Static Sitting-Comment/Number of Minutes: pt able to maintain balance with use of B UE support sba,increased assist needed with 1 UE support Pt tends to lean slightly to R side Dynamic Sitting Balance Dynamic Sitting-Level of Assistance: Contact guard, Minimum assistance Dynamic Sitting-Balance: Forward lean, Lateral lean, Reaching for objects, Within base of support Dynamic Sitting-Balance Support: Unilateral upper extremity supported Dynamic Sitting-Comments: pt performing lateral flexion, reaching with either UE in various quadrants Static Standing Balance Static Standing-Level of Assistance: Not attempted, medical/safety concerns Functional Assessments: Bed Mobility Rolling Right Assistance: Moderate assistance Rolling Left Assistance: Moderate assistance Sitting to Lying Assistance: Maximum assistance Lying to Sitting Assistance: Maximum assistance Bed Mobility Comments: vc for log rolling, hand placement Transfers Sit to Stand Assistance: Not attempted, medical/safety concerns Ambulation Walking Assistance: Not attempted, medical/safety concerns Procedure/Treatment: Balance/Neuromuscular Re-Education Neuromuscular Re-Education Time Entry: 20 Balance/Neuromuscular Re-Education Activity 1: eob static and dynamic sitting balance approx 12 min Balance/Neuromuscular Re-Education Activity 2: supine AP,hip internal rotation, hip abductions, HS x 10 each LE AAROM/PROM. Balance/Neuromuscular Re-Education Activity 3: seated laq's x 5 each LE, pt able to initiate movement but then requires AAROM for full ROM Therapeutic Activity Therapeutic Activity Time Entry: 8 Therapeutic Activity 1: rolling R<>L mod A Therapeutic Activity 2: supine<>sit transfers max A Therapeutic Activity 3: repositioning in bed for comfort Therapeutic Activity 4: review of precautions ASSESSMENT Pt making progress towards goals. He participated in supine B LE TE, bed mobility and static/dynamic sitting balance this session. He has significant weakness in B LE and standing not attempted this date d/t safety concerns. Pt also fatigued easily and was returned to bed end of tx. All needs met and call light in reach post tx. PT will continue to progress as able. PT Assessment/ Barriers to discharge: Decreased strength, Decreased range of motion, Decreased endurance, Impaired balance, Impaired gait, Decreased mobility, Orthopedic restrictions, Pain Prognosis: Fair Evaluation/Treatment Tolerance: Patient limited by fatigue PLAN Acute Care Plan: Treatment/Interventions: Functional transfer training, LE strengthening/ROM, Endurance training, Equipment eval/education, Patient/family training, Bed mobility, Gait training, Compensatory techniqueeducation, Balance training PT Plan: Skilled PT PT Frequency: 5 days per week PT Duration of Sessions: PRN PT Treatments per day: 1 time per day PT Discharge Recommendations: half-way facility placement Time Spent: PT Time Calculation PT Start Time: 926 PT Stop Time: 957 PT Time Calculation (min): 31 min Time Entry: PT Therapeutic Procedures Time Entry Neuromuscular Re-Education Time Entry: 20 Therapeutic Activity Time Entry: 8 Goals: Encounter Problems Encounter Problems (Active) Template: Physical Therapy Problem: Balance Goal: Maintains dynamic sitting balance with upper extremity support Dates: Start: 12/05/22 Expected End: 12/11/22 Description: Goal Type: STG, Performance Level: Contact guard Outcomes Date/Time User Outcome 12/07/22 1044 Angelita Joshi PTA Progressing Problem: Transfers Goal: Transfer from bed to chair. Dates: Start: 12/05/22 Expected End: 12/11/22 Description: Goal Type: STG, Performance Level: Contact guard with slide board Outcomes Date/Time User Outcome 12/07/22 1044 Angelita Joshi PTA Not Progressing Goal: Patient to transfer to and from sit to supine Dates: Start: 12/05/22 Expected End: 12/11/22 Description: Goal Type: STG, Performance Level: Min assist log roll Outcomes Date/Time User Outcome 12/07/22 1044 Angelita Joshi PTA Progressing Encounter Problems (Resolved) There are no resolved problems. EDUCATION Education Documentation Spine Precautions, taught by Angelita Joshi PTA at 12/07/2022 10:44 AM. Learner: Patient Readiness: Acceptance Method: Explanation, Demonstration Response: Needs Reinforcement Body Mechanics, taught by Angelita Joshi PTA at 12/07/2022 10:44 AM. Learner: Patient Readiness: Acceptance Method: Explanation, Demonstration Response: Needs Reinforcement Mobility Training, taught by Angelita Joshi PTA at 12/07/2022 10:44 AM. Learner: Patient Readiness: Acceptance Method: Explanation, Demonstration Response: Needs Reinforcement Education Comments No comments found. * Liliana Esteban NP - 12/07/2022 8:37 AM EDT Neurosurgery Progress Note Patient: Armand Barron Room: [id number] Age: 67 y.o. Attending: Edyta Rick DO Date of Service: 12/07/22 Admit: 12/01/2022 PCP: Salena Flores NP Assessment/Plan Perpetual Assessment Patient with hx of C7-T4 posterior fusion by pedicle screw fixation, T2, T7 removal of epidural tumor by laminectomy, facetectomy, foraminotomy by Dr. Tao on 11/11/22. Presented 12/01 for evaluation of his incision of his posterior neck incision; concern for infection d/t significant drainage and erythema to the site, deborah in place. 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 New imaging shows progression of severe T7 pathologic compression fx and retropulsion of bony fragments into the spinal canal, and a post-op fluid collection. IR was consulted and a drain was placed 12/02. Wound care was consulted for incision. Wound care management. Wound care/dressing changes to mid thoracic surgical wound every 5 days as follows: Remove old dressing and alginate packing from small open area, irrigate the open area with NS, pack the 2 cm deep site of where there was a seroma using the alginate Ag rope packing (in room), cover with a long foam bordered dressing. Please date the dressing. T7 Pathologic Compression Fracture Post Op Fluid Collection -Imaging --12/01 CT C/T Spine with interval progression of severe pathologic fracture of the T7 vertebral bodywith 5 mm of retropulsion --12/02 MR C spine shows fluid collection in the cervical and thoracic spine - IR placed drain --12/02 Drain; upper midline back - placed by IR (will DC drain right before patient discharges) - Empty per shift and record output - On Ancef --Cultures remain pending, preliminary without growth - Anaerobic final pending - Aspirate Final negative -- Wound care - as written - CONTINUE UPON TRANSFER TO SNF -- Activity as tolerated -- VTE: BLE SCD's, Lovenox -- Pain per Primary Acute/Chronic Medical Issues - --Primary and Consultants to manage - appreciate Disposition/Plan --Keep drain - plan to remove @ discharge --Await final Culture results - Will determine if ATB @ discharge --Return to [facility], requested precert --Okay to discharge from a Neurosurgical perspective, will DC drain the day the patient is leaving (review output) --This hospital visit can serve as 1 month F/U with Dr Tao - would like to follow up in 2 months in office or sooner if indicated --Patient is aware that radiation may be delayed for wound healing reasons Liliana Esteban NP Send message via KDW with further questions. Greater than 25 minutes were spent including face to face interview/education, and chart review including multiple provider notes, diagnostic testing results, and lab review. Greater than 50% of timespent in face to face counseling with patient. SUBSEQUENT ENCOUNTER 13103 Subjective Asleep - easily arousable, no complaints this AM Objective Vitals: 12/07/22 0742 BP: 117/76 Pulse: 79 Resp: Temp: 36.7 C (98.1 F) SpO2: 94% T Max 98.1 WBC today pending Mental Status: Alert & oriented x4 Language: Speech is fluent, non-dysarthric, able to follow commands Fund of knowledge: aware of current events, vocabulary is normal Sensation: progressing slowly Sensory exam completed: grossly intact to light touch LLE great toe - indicated felt back of leg 12/05 - not today RLE great toe - able to indicate great toe - still no propriception Motor: Muscle strength was assessed in all extremities BUE grasp/biceps/triceps/deltoid = / BLE DF 10/01, PF = 10/01 GI: Abdomen rounded, BM 12/06 X 2 Pulmonary: Respirations are regular and unlabored on RA Incision: Packed and covered with mepilex Specific orders for drsg changes placed in orders Drain: 12 fr midline incision Drainage sero serosanguinous 12/02 285 ml 12/03 82 ml 12/04 125 ml 12/05 85 ml 12/06 50 ml Medications Allergies: No Known Allergies Current Medications: Current Facility-Administered Medications: acetaminophen (TYLENOL) tablet 650 mg, 650 mg, oral, q6h PRN, Blade Palm, DO, 650 mg at 12/07/22 0530 amLODIPine (NORVASC) tablet 10 mg, 10 mg, oral, Daily, Blade Palm, DO, 10 mg at 12/06/22 0940 atorvastatin (LIPITOR) tablet 10 mg, 10 mg, oral, Daily, Blade Palm, DO, 10 mg at 12/06/22 0940 ceFAZolin (ANCEF) 1 gram/10 mL IV syringe 1 g, 1 g, intravenous, q8h, Blade Palm, DO, 1 g at 12/07/22 0012 enoxaparin (LOVENOX) injection 40 mg, 40 mg, subcutaneous, Daily, Edyta Rick DO, 40 mg at 12/06/22 0940 HYDROmorphone (DILAUDID) injection 0.5 mg, 0.5 mg, intravenous, q3h PRN, Blade Palm DO, 0.5 mg at 12/02/22 1347 levothyroxine (SYNTHROID, LEVOTHROID) tablet 88 mcg, 88 mcg, oral, Daily, Blade Palm, DO, 88 mcg at 12/06/22 0940 melatonin tablet 6 mg, 6 mg, oral, Nightly, Blade Palm, , 6 mg at 12/06/222053 metoprolol tartrate (LOPRESSOR) tablet 50 mg, 50 mg, oral, BID, Blade Palm, DO, 50 mg at ondansetron ODT (ZOFRAN-ODT) disintegrating tablet 4 mg, 4 mg, oral, q8h PRN OR ondansetron (PF) (ZOFRAN) injection 4 mg, 4 mg, intravenous, q8h PRN, Blade Palm DO oxyCODONE (ROXICODONE) immediate release tablet 5 mg, 5 mg, oral, q4h PRN, Blade Palm, , 5 mg at 12/06/222055 pantoprazole (PROTONIX) EC tablet 40 mg, 40 mg, oral, q AM AC, Blade Palm, , 40 mg at 12/07/22 0600 prochlorperazine (COMPAZINE) tablet 10 mg, 10 mg, oral, q6h PRN OR prochlorperazine (COMPAZINE)injection 10 mg, 10 mg, intravenous, q6h PRN OR prochlorperazine (COMPAZINE) suppository 25 mg,25 mg, rectal, q12h PRN, Blade Palm DO senna-docusate (PERICOLACE) 8.6-50 mg per tablet 1 tablet, 1 tablet, oral, BID PRN, Blade Palm, , 1 tablet at 12/05/22 2346 [COMPLETED] Insert peripheral IV, , , Once AND Maintain IV access, , , Until discontinued AND [COMPLETED] Saline lock IV, , , Once AND sodium chloride 0.9 % flush 10 mL, 10 mL, intravenous, BID, 10 mL at 12/06/222056 AND sodium chloride 0.9 % flush 10 mL, 10 mL, intravenous, PRN, Blade Palm, DO, 10 mL at 12/02/221653 traZODone (DESYREL) tablet 50 mg, 50 mg, oral, Nightly PRN, Blade Palm, , 50 mg at 12/05/222148 Radiology/Diagnostics No new imaging for review Labs Lab Results Component Value Date CREATININE 0.58 (L) 12/07/2022 BUN 16 12/07/2022 NA 136 12/07/2022 K 3.9 12/07/2022 CL 100 12/07/2022 CO2 29 12/07/2022 WBC 5.7 12/06/2022 WBC 100 12/06/2022 RBC 3.17 (L) 12/06/2022 HGB 9.5 (L) 12/06/2022 HCT 29.9 (L) 12/06/2022 PLT 264 12/06/2022 Lab Results Component Value Date BLOODCX No growth at 5 days 12/01/2022 BLOODCX No growth at 5 days 12/01/2022 * Remedios Ward RN - 12/06/2022 8:09 PM EDT Problem: Skin Integrity: Goal: Will not develop new pressure injury Outcome: Progressing Goal: Skin integrity will improve Outcome: Progressing Problem: Cognitive: Goal: Understanding of ways to prevent future skin breakdown will improve Outcome: Progressing Problem: Nutritional: Goal: Nutritional status will improve Outcome: Progressing Problem: Physical Regulation: Goal: Signs and symptoms of infection will decrease Outcome: Progressing Goals: Clinical Goals for the Shift: Decrease pain/ABX as ordered Identify possible barriers to meeting goals/advancing plan of care: impaired mobility Stability of the patient: Moderately Stable - Low risk of patient condition declining or worsening End of Shift Summary: will continue to monitor * Edyta Rick DO - 12/06/2022 9:43 AM EDT Images from the original note were not included. Progress Note Chief Complaint/Visit Reason: My incision did not look good and they sent me back to the hospital. Impression: This patient is a 67-year-old male with past medical history of hypertension, hyperlipidemia, hypothyroidism, GERD, and recent diagnosis of multiple myeloma with T2 and T7 pathological fractures withepidural tumor and subsequent cord compression. He underwent thoracic decompression and removal of T2 and T7 epidural tumor by laminectomy, facetectomy, and foraminotomy as well as posterior thoracicfusion of C7-T4 by screw fixation on 11/11/[address] Tao. Patient has been doing therapy at [facility] in [place] and staff noted that his incision began looking erythematous, copious drainage. He was sent back to [facility] for evaluation by neurosurgery. To IR on 12/02 for drain placement and fluid sent for culture, no growth. Wound care team consulted and gave wound care recommendations. Patient remained nontoxic-no fevers, no leukocytosis, clinically very stable. Patient to return to [facility] in [place], remains inpatient through the weekend awaiting pre-CERT. Diagnoses: Postoperative wound infection versus seroma, favor seroma. Multiple myeloma with T2 and T7 pathological fractures with epidural tumor status post C7-T4 posterior thoracic fusion with fixation and removal of epidural tumor with laminectomy, facetectomy, and foraminotomy by Dr. Tao on 11/11/2022. 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 Hypertension. Hyperlipidemia. Hypothyroidism. GERD. Plan: Drain placed in IR putting out very little additional fluid. Neurosurgery will discontinue on the day of discharge per their notes. Blood and wound cultures remained negative. Continue Ancef while inpatient, can DC at discharge. ET RN input appreciated-deborah removed on 12/03 and dressing change recommendations added to depart. PT/OT continues to recommend SNF. Changed Vanegas catheter in the ER. Diet as tolerated. DVT prophylaxis: Lovenox, cleared by neurosurgery on 12/05. Code Status: Full code. Disposition: Patient is medically stable for discharge back to [facility] in [place], awaiting pre-CERT. Discussedwith case management. Follow-up with Dr. Tao in 2 months, added to depart at discharge. Previously, patient lived alone, was working full-time in his job at the [employer] in [place] prior to his diagnosis of multiple myeloma in October 2022. His brother lives in [facility] and is his POA. No spouse or children. Discussed with case management-patient needs help with disability paperwork. Edyta Rick, [facility] Subjective: Patient is again awake and alert, chatty and appropriate. Ate his entire breakfast tray. All questions answered, patient is waiting for pre-CERT to get back to SNF. Review of Systems Vitals and Physical exam: Patient Vitals for the past 24 hrs: BP Temp Temp src Pulse Resp SpO2 12/06/22 0754 109/73 37.1 C (98.7 F) Oral 76 -- 97 % 12/06/22 0300 106/68 36.8 C (98.2 F) Oral 75 -- 99 % 12/05/22 2334 96/62 36.8 C (98.2 F) Oral 59 -- -- 12/05/22 1946 103/66 37 C (98.6 F) Oral 72 -- 99 % 12/05/22 1703 107/66 36.9 C (98.4 F) Oral 66 -- 97 % 12/05/22 1308 97/60 36.8 C (98.3 F) Oral 58 16 96 % Body mass index is 25.1 kg/m . Intake/Output Summary (Last 24 hours) at 12/06/2022 0943 Last data filed at 12/06/2022 0754 Gross per 24 hour Intake -- Output 3135 ml Net -3135 ml Physical Exam Constitutional: General: He is not in acute distress. Appearance: He is normal weight. He is not ill-appearing or toxic-appearing. HENT: Head: Normocephalic and atraumatic. Mouth/Throat: Mouth: Mucous membranes are moist. Eyes: Extraocular Movements: Extraocular movements intact. Neck: Comments: Patient has a midline incision from his mid neck down to the thoracic region, erythematous but improved. Deborah have been removed. Drain remains in place but no additional output. Cardiovascular: Rate and Rhythm: Normal rate and regular rhythm. Heart sounds: No murmur heard. Pulmonary: Effort: Pulmonary effort is normal. Breath sounds: Normal breath sounds. No wheezing or rhonchi. Abdominal: General: Bowel sounds are normal. Palpations: Abdomen is soft. Tenderness: There is no abdominal tenderness. Musculoskeletal: Right lower leg: No edema. Left lower leg: No edema. Skin: General: Skin is dry. Coloration: Skin is pale. Neurological: Mental Status: He is alert and oriented to person, place, and time. Comments: Cognitively intact, excellent historian. Psychiatric: Thought Content: Thought content normal. Recent Lab Results: Results from last 7 days Lab Units 12/06/22 0513 12/05/22 0415 12/04/22 0434 12/03/22 0450 12/01/224 SODIUM mmol/L 135* 137 137 137 135* POTASSIUM mmol/L 4.1 4.2 4.0 3.8 3.5* CHLORIDE mmol/L 100 103 102 102 99 CO2 mmol/L 30 28 27 28 28 BUN mg/dL 13 15 15 17 18 CREATININE mg/dL 0.59* 0.56* 0.54* 0.72 0.54* Results from last 7 days Lab Units 12/06/22 0513 12/05/22 1024 12/01/222043 WBC AUTO K/mcL 5.7 5.3 6.6 TOTAL COUNTED 100 -- 100 HEMOGLOBIN g/dL 9.5* 10.3* 10.5* HEMATOCRIT % 29.9* 33.5* 32.2* PLATELETS K/mcL 264 249 167 MCV FL 94.3 95.7 93.1 Recent Imaging Findings: CT Guided Perc Drain Plcmnt Narrative: CT guided abscess drain placement INDICATION: Fluid collection postoperatively STAFF: Palmer DEE FLUOROSCOPY TIME: None. COMPLICATIONS: None EBL: <5 ml MEDICATIONS: 2% lidocaine local. PROCEDURE: Time-out was performed to confirm the correct patient, procedure, and site. The patient was placed prone. A site overlying the back was marked prepped and draped in sterile fashion. Skin prep was allowed to fully dry. The skin was anesthetized with LIDOCAINE. Under CT guidance a 12-Austrian pigtail drainage catheter was placed within the collection. 10 mL of serosanguineous fluid was aspirated and sent for analysis. The catheter was sutured to the skin and then attached togravity drainage. PATIENT DISPOSITION: Discharged from the department in stable condition. Impression: Technically successful CT-guided 12-Austrian drain placement within postoperative fluid collection in the upper back -------- FINAL REPORT -------- Dictated By: Louie Chakraborty Dictated Date: 12/02/2022 14:39 Assigned Physician: Louie Chakraborty Reviewed and Electronically Signed By: Louie Chakraborty Signed Date: 12/02/2022 14:41 Workstation ID: [id number] Transcribed By: Self Edit Transcribed Date: 12/02/2022 14:39 MR Thoracic Spine wo and w Contrast Narrative: EXAMINATION TYPE: MR THORACIC SPINE WO AND W CONTRAST, MR CERVICAL SPINE WO AND W CONTRAST DATE OF EXAM ORDERED: 12/02/2022 2:19 AM HISTORY: pathologic T7 compression fracture with retropulsion, post op fluid collection, likely seroma COMPARISON: CT 12/01/2022, MR 11/10/2022 TECHNIQUE: MR cervical and thoracic spine with and without contrast FINDINGS: THORACIC SPINE: At T7, there is an enhancing mass with associated pathologic compression fracture. There has been progression of vertebral body height loss since the prior examination from 11/10/2022, as well as increased retropulsion of bony fragments into the spinal canal at this level. Retropulsion of bony fragments results in fairly severe narrowing of the thecal sac at this level, as well as cord compressionand mildly increased cord signal intensity from the T6-7 through T7-8 levels. The extent of compression is improved compared to the prior preoperative examination from 11/10/2022. Posterior laminectomy has been performed at the T5 level. Smaller enhancing lesions are present in the T10 and T11 vertebral bodies. There has been resection of a mass previously noted at the T2 level, spinal fusion hardware from [id number] T4. A small amount of residual enhancing tissue in the left neural foramen at T2-3 may represent granulation tissue or residual tumor. Previously noted cord compression in this area has improved. In the posterior paraspinal soft tissues, there is a fluid collection along the midline and slightly right of midline extending from the cervicothoracic junction to the T8 level. This abuts the spinous processes and abuts the facet joints near the levels of the surgical hardware. This is also contiguous with the laminectomy defects at the T7 level and in the upper thoracic spine at the areas of fusion. No additional cord signal abnormality is identified. Postsurgical changes are present elsewhere in the paraspinal soft tissues. Trace bilateral pleural effusions are noted. CERVICAL SPINE: Posterior fusion has been performed from C7 through T4. Focal kyphosis is noted in the upper thoracic spine. Alignment is otherwise maintained. There is been resection of the previously noted mass atthe T2 level. There is some residual enhancing tissue within the left foramen at the T2-3 level, which could represent residual tumor or granulation tissue. No additional discrete lesion is identified. No abnormal cord signal intensity is identified in the cervical cord. The craniocervical junction is intact. Postsurgical changes are present in the posterior paraspinal soft tissues in the lower cervical andupper thoracic region. In the posterior paraspinal soft tissues near the midline into the right of midline, there is a peripherally enhancing fluid collection extending from the C5 level inferiorly into the upper thoracic region. This extends to the laminectomy defect at the lower cervical and upper thoracic spine. There is no significant associated mass effect on the thecal sac. Evaluation of the lower cervical spine is somewhat limited by susceptibility artifact from surgicalhardware. Multilevel mild to moderate degenerative changes are present in the lower cervical spine,grossly similar to the prior examination. Impression: At the T7 level, there has been progression of a severe compression fracture and retropulsion of bony fragments into the spinal canal. Posterior decompression has been performed at this level. There is compression of the cord at this level with increased cord signal intensity as above. The overall extent of cord compression at this level is decreased compared to the prior postoperative examination from 11/10/2022. Resection of the previously noted mass at the T2 level. There is a small residual enhancing tissue in the left T2-T3 neural foramen, which may represent granulation tissue or an element of residual mass. Cord compression in this area has improved. Enhancing masses in the T10 and T11 vertebral bodies, not significantly changed. In the posterior paraspinal soft tissues, there is a large fluid collection at the midline and slightly right of midline, which extends from approximately the C5 level to the T8 level. There is some extension of the fluid collection to the laminectomy defects at T2 and T7. Some peripheral enhancement is present. This may represent a postoperative seroma, however, sterility is not confirmed. Clinical correlation is recommended. -------- FINAL REPORT -------- Dictated By: Shay Dallas Dictated Date: 12/02/2022 07:20 Assigned Physician: Shay Dallas Reviewed and Electronically Signed By: Sahy Dallas Signed Date: 12/02/2022 07:48 Workstation ID: [id number] Transcribed By: Self Edit Transcribed Date: 12/02/2022 07:20 MR Cervical Spine wo and w Contrast Narrative: EXAMINATION TYPE: MR THORACIC SPINE WO AND W CONTRAST, MR CERVICAL SPINE WO AND W CONTRAST DATE OF EXAM ORDERED: 12/02/2022 2:19 AM HISTORY: pathologic T7 compression fracture with retropulsion, post op fluid collection, likely seroma COMPARISON: CT 12/01/2022, MR 11/10/2022 TECHNIQUE: MR cervical and thoracic spine with and without contrast FINDINGS: THORACIC SPINE: At T7, there is an enhancing mass with associated pathologic compression fracture. There has been progression of vertebral body height loss since the prior examination from 11/10/2022, as well as increased retropulsion of bony fragments into the spinal canal at this level. Retropulsion of bony fragments results in fairly severe narrowing of the thecal sac at this level, as well as cord compressionand mildly increased cord signal intensity from the T6-7 through T7-8 levels. The extent of compression is improved compared to the prior preoperative examination from 11/10/2022. Posterior laminectomy has been performed at the T5 level. Smaller enhancing lesions are present in the T10 and T11 vertebral bodies. There has been resection of a mass previously noted at the T2 level, spinal fusion hardware from [id number] T4. A small amount of residual enhancing tissue in the left neural foramen at T2-3 may represent granulation tissue or residual tumor. Previously noted cord compression in this area has improved. In the posterior paraspinal soft tissues, there is a fluid collection along the midline and slightly right of midline extending from the cervicothoracic junction to the T8 level. This abuts the spinous processes and abuts the facet joints near the levels of the surgical hardware. This is also contiguous with the laminectomy defects at the T7 level and in the upper thoracic spine at the areas of fusion. No additional cord signal abnormality is identified. Postsurgical changes are present elsewhere in the paraspinal soft tissues. Trace bilateral pleural effusions are noted. CERVICAL SPINE: Posterior fusion has been performed from C7 through T4. Focal kyphosis is noted in the upper thoracic spine. Alignment is otherwise maintained. There is been resection of the previously noted mass atthe T2 level. There is some residual enhancing tissue within the left foramen at the T2-3 level, which could represent residual tumor or granulation tissue. No additional discrete lesion is identified. No abnormal cord signal intensity is identified in the cervical cord. The craniocervical junction is intact. Postsurgical changes are present in the posterior paraspinal soft tissues in the lower cervical andupper thoracic region. In the posterior paraspinal soft tissues near the midline into the right of midline, there is a peripherally enhancing fluid collection extending from the C5 level inferiorly into the upper thoracic region. This extends to the laminectomy defect at the lower cervical and upper thoracic spine. There is no significant associated mass effect on the thecal sac. Evaluation of the lower cervical spine is somewhat limited by susceptibility artifact from surgicalhardware. Multilevel mild to moderate degenerative changes are present in the lower cervical spine,grossly similar to the prior examination. Impression: At the T7 level, there has been progression of a severe compression fracture and retropulsion of bony fragments into the spinal canal. Posterior decompression has been performed at this level. There is compression of the cord at this level with increased cord signal intensity as above. The overall extent of cord compression at this level is decreased compared to the prior postoperative examination from 11/10/2022. Resection of the previously noted mass at the T2 level. There is a small residual enhancing tissue in the left T2-T3 neural foramen, which may represent granulation tissue or an element of residual mass. Cord compression in this area has improved. Enhancing masses in the T10 and T11 vertebral bodies, not significantly changed. In the posterior paraspinal soft tissues, there is a large fluid collection at the midline and slightly right of midline, which extends from approximately the C5 level to the T8 level. There is some extension of the fluid collection to the laminectomy defects at T2 and T7. Some peripheral enhancement is present. This may represent a postoperative seroma, however, sterility is not confirmed. Clinical correlation is recommended. -------- FINAL REPORT -------- Dictated By: Shay Dallas Dictated Date: 12/02/2022 07:20 Assigned Physician: Shay Dallas Reviewed and Electronically Signed By: Shay Dallas Signed Date: 12/02/2022 07:48 Workstation ID: [id number] Transcribed By: Self Edit Transcribed Date: 12/02/2022 07:20 CT Cervical Spine w Contrast Narrative: EXAMINATION TYPE: CT CERVICAL SPINE W CONTRAST, CT THORACIC SPINE W CONTRAST DATE OF EXAM ORDERED: 12/01/2022 10:12 PM HISTORY: post-op infection concern, recent thoracic lower cervical surgery on 11/11. Drainage from surgical wound, CONTRAST USED: 100 mL ISOVUE-300 COMPARISON: CT thoracic spine 11/11/2022, MRI cervical and thoracic spine 11/10/2022 TECHNIQUE: Contiguous axial, coronal and sagittal images were obtained through the cervical and thoracic spine following intravenous contrast administration. FINDINGS: CT CERVICAL SPINE: Skull base is intact. Atlantoaxial joint is unremarkable. There is convex left scoliosis noted. The vertebrae are otherwise normally aligned. No acute cervical fracture is seen. Disc spaces well-preserved from C2-3 through C4-5. At C5-6 again noted is bulging disc and osteophyte complex without significant spinal stenosis. At C6-7 there is also mild bulging the disc with no significant spinal stenosis. Again noted are changes of posterior instrumented fixation with spinal rods and pedicle screws in the C7 and T1 vertebrae as well as the T3 and T4 vertebrae without acute complication. Destructive changes and severe compression of the T2 vertebral body again noted. Surgical drain is been removed and overlying skin deborah of the lower cervical and thoracic region remain in place. There has been interval development of a large fluid collection in the posterior soft tissues overlying the surgicalbed measuring approximately 7 cm in cephalocaudal length maximum transverse diameter of 6.2 cm AP by 11.2 cm transverse on image one series 8 overlying the lower cervical and upper thoracic vertebralbodies, this collection does not communicate with the thecal sac and is likely a large postoperative seroma, it contains no air bubbles to suggest an abscess which is less likely. There is no associated wall enhancement of this fluid collection. Surrounding subcutaneous edema is noted. CT THORACIC SPINE: Severe compression pathologic fracture deformity of the T7 vertebral body has progressed since the prior exam now with vertebral plana deformity. Extensive destructive changes of this vertebra extending into the left-sided pedicle are noted. No obvious enhancing tumor noted within the spinal canal.There is 5 mm of retropulsion of the posterior inferior corner of this fractured vertebral body into the spinal canal noted narrowing of the midline thecal sac diameter to 6 mm with some mild compression of the right thoracic spinal cord not seen on the prior exam. It is difficult to estimate extent of any epidural tumor that may be present at this level. Remaining vertebrae demonstrate no compression fractures, with diffuse marrow abnormalities consistent with metastatic disease.. No other significant spinal stenosis is seen. Impression: 1. Interval progression of severe pathologic fracture of the T7 vertebral body now withvertebral plana, extensive destructive changes including the left-sided pedicle. Interval development of 5 mm of retropulsion of the bone fragment into the spinal canal to the right of midline now with mild compression of the right thoracic spinal cord not seen on the prior exam with 6 mm midline AP thecal sac diameter. 2. Postoperative changes of posterior instrumented fixation from C7 to T4 as noted on 11/11/2022 bridging pathologic fracture at the T2 level. New superficial fluid collection in the posterior soft tissues overlying the surgical bed without communication with the thecal sac likely a postoperative se leonard measuring 6 x 11 x 7 cm, this is unlikely to represent an abscess. CRITICAL DOCUMENT ONLY finding communicated directly to Marcello Phillip SALEH and documented in the [employer] system on 12/02/2022 12:31 AM, Message ID [id number]. -------- FINAL REPORT -------- Dictated By: Ricky Walters Dictated Date: 12/02/2022 00:09 Assigned Physician: Ricky Walters Reviewed and Electronically Signed By: Ricky Walters Signed Date: 12/02/2022 00:32 Workstation ID: [id number] Transcribed By: Self Edit Transcribed Date: 12/02/2022 00:09 CT Thoracic Spine w Contrast Narrative: EXAMINATION TYPE: CT CERVICAL SPINE W CONTRAST, CT THORACIC SPINE W CONTRAST DATE OF EXAM ORDERED: 12/01/2022 10:12 PM HISTORY: post-op infection concern, recent thoracic lower cervical surgery on 11/11. Drainage from surgical wound, CONTRAST USED: 100 mL ISOVUE-300 COMPARISON: CT thoracic spine 11/11/2022, MRI cervical and thoracic spine 11/10/2022 TECHNIQUE: Contiguous axial, coronal and sagittal images were obtained through the cervical and thoracic spine following intravenous contrast administration. FINDINGS: CT CERVICAL SPINE: Skull base is intact. Atlantoaxial joint is unremarkable. There is convex left scoliosis noted. The vertebrae are otherwise normally aligned. No acute cervical fracture is seen. Disc spaces well-preserved from C2-3 through C4-5. At C5-6 again noted is bulging disc and osteophyte complex without significant spinal stenosis. At C6-7 there is also mild bulging the disc with no significant spinal stenosis. Again noted are changes of posterior instrumented fixation with spinal rods and pedicle screws in the C7 and T1 vertebrae as well as the T3 and T4 vertebrae without acute complication. Destructive changes and severe compression of the T2 vertebral body again noted. Surgical drain is been removed and overlying skin deborah of the lower cervical and thoracic region remain in place. There has been interval development of a large fluid collection in the posterior soft tissues overlying the surgicalbed measuring approximately 7 cm in cephalocaudal length maximum transverse diameter of 6.2 cm AP by 11.2 cm transverse on image one series 8 overlying the lower cervical and upper thoracic vertebralbodies, this collection does not communicate with the thecal sac and is likely a large postoperative seroma, it contains no air bubbles to suggest an abscess which is less likely. There is no associated wall enhancement of this fluid collection. Surrounding subcutaneous edema is noted. CT THORACIC SPINE: Severe compression pathologic fracture deformity of the T7 vertebral body has progressed since the prior exam now with vertebral plana deformity. Extensive destructive changes of this vertebra extending into the left-sided pedicle are noted. No obvious enhancing tumor noted within the spinal canal.There is 5 mm of retropulsion of the posterior inferior corner of this fractured vertebral body into the spinal canal noted narrowing of the midline thecal sac diameter to 6 mm with some mild compression of the right thoracic spinal cord not seen on the prior exam. It is difficult to estimate extent of any epidural tumor that may be present at this level. Remaining vertebrae demonstrate no compression fractures, with diffuse marrow abnormalities consistent with metastatic disease.. No other significant spinal stenosis is seen. Impression: 1. Interval progression of severe pathologic fracture of the T7 vertebral body now withvertebral plana, extensive destructive changes including the left-sided pedicle. Interval development of 5 mm of retropulsion of the bone fragment into the spinal canal to the right of midline now with mild compression of the right thoracic spinal cord not seen on the prior exam with 6 mm midline AP thecal sac diameter. 2. Postoperative changes of posterior instrumented fixation from C7 to T4 as noted on 11/11/2022 bridging pathologic fracture at the T2 level. New superficial fluid collection in the posterior soft tissues overlying the surgical bed without communication with the thecal sac likely a postoperative se leonard measuring 6 x 11 x 7 cm, this is unlikely to represent an abscess. CRITICAL DOCUMENT ONLY finding communicated directly to Marcello Fisher DO and documented in the [employer] system on 12/02/2022 12:31 AM, Message ID [id number]. -------- FINAL REPORT -------- Dictated By: Ricky Walters Dictated Date: 12/02/2022 00:09 Assigned Physician: Ricky Walters Reviewed and Electronically Signed By: Ricky Walters Signed Date: 12/02/2022 00:32 Workstation ID: [id number] Transcribed By: Self Edit Transcribed Date: 12/02/2022 00:09 Allergies: No Known Allergies * Liliana Esteban NP - 12/06/2022 8:00 AM EDT Neurosurgery Progress Note Patient: Armand Barron Room: [facility]/[address] [place] [address] Age: 67 y.o. 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 Tao on 11/11/22. Presented 12/01 for evaluation of his incision of his posterior neck incision; concern for infection d/t significant drainage and erythema to the site, deborah in place. 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 New imaging shows progression of severe T7 pathologic compression fx and retropulsion of bony fragments into the spinal canal, and a post-op fluid collection. IR was consulted and a drain was placed 12/02. Wound care was consulted for incision. Wound care management. Wound care/dressing changes to mid thoracic surgical wound every 5 days as follows: Remove old dressing and alginate packing from small open area, irrigate the open area with NS, pack the 2 cm deep site of where there was a seroma using the alginate Ag rope packing (in room), cover with a long foam bordered dressing. Please date the dressing. T7 Pathologic Compression Fracture Post Op Fluid Collection -Imaging --12/01 CT C/T Spine with interval progression of severe pathologic fracture of the T7 vertebral bodywith 5 mm of retropulsion --12/02 MR C spine shows fluid collection in the cervical and thoracic spine - IR placed drain --12/02 Drain; upper midline back - placed by IR (will DC drain right before patient discharges) - Empty per shift and record output - On Ancef --Cultures remain pending, preliminary without growth - Anaerobic final pending - Aspirate Final negative -- Wound care - as written -- Activity as tolerated -- VTE: BLE SCD's, Lovenox -- Pain per Primary Acute/Chronic Medical Issues - --Primary and Consultants to manage - appreciate Disposition/Plan --Keep drain - plan to remove @ discharge --Await final Culture results --Return to [facility], requested precert --Okay to discharge from a Neurosurgical perspective, will DC drain the day the patient is leaving (review output) --This hospital visit can serve as 1 month F/U with Dr Tao - would like to follow up in 2 months in office or sooner if indicated --Patient is aware that radiation may be delayed Liliana Esteban NP Send message via [employer] with further questions. Greater than 25 minutes were spent including face to face interview/education, and chart review including multiple provider notes, diagnostic testing results, and lab review. Greater than 50% of timespent in face to face counseling with patient. SUBSEQUENT ENCOUNTER [id number] Subjective Good spirits. Improved LE movement. Awaits precert. Aware radiation may be delayed. No complaints. Objective Vitals: 12/06/22 0754 BP: 109/73 Pulse: 76 Resp: Temp: 37.1 C (98.7 F) SpO2: 97% T Max 98.7 WBC 5.7 Mental Status: Alert & oriented x4 Language: Speech is fluent, non-dysarthric, able to follow commands Fund of knowledge: aware of current events, vocabulary is normal Sensation: Sensory exam completed: grossly intact to light touch LLE great toe - indicated felt back of leg 12/05 - not today RLE great toe - able to indicate great toe - still no propriception Motor: Muscle strength was assessed in all extremities BUE grasp/biceps/triceps/deltoid = 5/5 BLE DF 10/01, PF = 1 GI: Abdomen rounded, BM 12/05 X 4 Pulmonary: Respirations are regular and unlabored on RA Incision: Packed and covered with mepilex Specific orders for drsg changes placed in orders Drain: 12 fr midline incision Drainage sero serosanguinous 12/02 285 ml 12/03 82 ml 12/04 125 ml 12/05 85 ml Medications Allergies: No Known Allergies Current Medications: Current Facility-Administered Medications: acetaminophen (TYLENOL) tablet 650 mg, 650 mg, oral, q6h PRN, Blade Palm DO, 650 mg at 12/04/22 1449 amLODIPine (NORVASC) tablet 10 mg, 10 mg, oral, Daily, Blade Palm DO, 10 mg at 12/05/22 0852 atorvastatin (LIPITOR) tablet 10 mg, 10 mg, oral, Daily, Blade Palm DO, 10 mg at 12/05/22 0852 ceFAZolin (ANCEF) 1 gram/10 mL IV syringe 1 g, 1 g, intravenous, q8h, Blade Palm DO, 1 g at 12/05/22 2346 enoxaparin (LOVENOX) injection 40 mg, 40 mg, subcutaneous, Daily, Edyta Rick DO, 40 mg at 12/05/22 1408 HYDROmorphone (DILAUDID) injection 0.5 mg, 0.5 mg, intravenous, q3h PRN, Blade Palm DO, 0.5 mg at 12/02/22 1347 levothyroxine (SYNTHROID, LEVOTHROID) tablet 88 mcg, 88 mcg, oral, Daily, Blade Palm DO, 88 mcg at 12/05/22 0852 melatonin tablet 6 mg, 6 mg, oral, Nightly, Blade Palm DO, 6 mg at 12/05/22 2149 metoprolol tartrate (LOPRESSOR) tablet 50 mg, 50 mg, oral, BID, Blade Palm DO, 50 mg at 149 ondansetron ODT (ZOFRAN-ODT) disintegrating tablet 4 mg, 4 mg, oral, q8h PRN OR ondansetron (PF) (ZOFRAN) injection 4 mg, 4 mg, intravenous, q8h PRN, Blade Palm DO oxyCODONE (ROXICODONE) immediate release tablet 5 mg, 5 mg, oral, q4h PRN, Blade Palm DO, 5 mg at 12/05/22 214 pantoprazole (PROTONIX) EC tablet 40 mg, 40 mg, oral, q AM AC, Blade Palm DO, 40 mg at 12/06/22 0625 prochlorperazine (COMPAZINE) tablet 10 mg, 10 mg, oral, q6h PRN OR prochlorperazine (COMPAZINE)injection 10 mg, 10 mg, intravenous, q6h PRN OR prochlorperazine (COMPAZINE) suppository 25 mg,25 mg, rectal, q12h PRN, Blade Palm, DO senna-docusate (PERICOLACE) 8.6-50 mg per tablet 1 tablet, 1 tablet, oral, BID PRN, Blade Palm, DO, 1 tablet at 12/05/22 2346 [COMPLETED] Insert peripheral IV, , , Once AND Maintain IV access, , , Until discontinued AND [COMPLETED] Saline lock IV, , , Once AND sodium chloride 0.9 % flush 10 mL, 10 mL, intravenous, BID, 10 mL at 12/05/22 2150 AND sodium chloride 0.9 % flush 10 mL, 10 mL, intravenous, PRN, Blade Palm, DO, 10 mL at 12/02/22 1654 traZODone (DESYREL) tablet 50 mg, 50 mg, oral, Nightly PRN, Blade Palm, DO, 50 mg at 12/05/22 2149 Radiology/Diagnostics No new imaging for review Labs Lab Results Component Value Date CREATININE 0.59 (L) 12/06/2022 BUN 13 12/06/2022 NA 135 (L) 12/06/2022 K 4.1 12/06/2022 CL 100 12/06/2022 CO2 30 12/06/2022 WBC 5.7 12/06/2022 WBC 100 12/06/2022 RBC 3.17 (L) 12/06/2022 HGB 9.5 (L) 12/06/2022 HCT 29.9 (L) 12/06/2022 PLT 264 12/06/2022 Lab Results Component Value Date BLOODCX No growth at 2 days 12/01/2022 BLOODCX No growth at 2 days 12/01/2022 * Trinidad Mtz RN - 12/06/2022 3:07 AM EDT Goals: Clinical Goals for the Shift: Decrease pain/ABX as ordered Problem: Cognitive: Goal: Last Known Fall Outcome: Progressing Goal: Mobility requiring assistance of person or device Outcome: Progressing Goal: Dizziness Outcome: Progressing Goal: Medications Outcome: Progressing Goal: Mental Status/LOC/Awareness Outcome: Progressing Goal: Toileting Needs Outcome: Progressing Goal: Volume and Electrolyte Status Outcome: Progressing Goal: Communication/Sensory Outcome: Progressing Goal: Behavior Outcome: Progressing Problem: Health Behavior: Goal: Patient Specific Outcome Outcome: Progressing Goal: Patient Specific Outcome Outcome: Progressing Goal: Patient Specific Outcome Outcome: Progressing Problem: Skin Integrity: Goal: Will not develop new pressure injury Outcome: Progressing Goal: Skin integrity will improve Outcome: Progressing Goal: Risk for impaired skin integrity will decrease Outcome: Progressing Problem: Activity: Goal: Mobility will improve Outcome: Progressing Problem: Cognitive: Goal: Understanding of ways to prevent future skin breakdown will improve Outcome: Progressing Problem: Nutritional: Goal: Nutritional status will improve Outcome: Progressing Problem: Physical Regulation: Goal: Signs and symptoms of infection will decrease Outcome: Progressing Goal: Diagnostic test results will improve Outcome: Progressing Problem: Balance Goal: Maintains dynamic sitting balance with upper extremity support Outcome: Progressing Problem: Transfers Goal: Transfer from bed to chair. Outcome: Progressing Goal: Patient to transfer to and from sit to supine Outcome: Progressing Identify possible barriers to meeting goals/advancing plan of care: Stability of the patient: Moderately Stable - Low risk of patient condition declining or worsening End of Shift Summary: * Akua Spears RN - 12/06/2022 12:39 AM EST Goals: Clinical Goals for the Shift: Decrease pain/ABX as ordered Identify possible barriers to meeting goals/advancing plan of care: multiple comorbidities Stability of the patient: Moderately Stable - Low risk of patient condition declining or worsening End of Shift Summary: patient resting in bed, vital signs stable. * Marcela Jha RN - 12/05/2022 9:39 AM EST PT notes sent to [facility] via [employer]. Call [facility] central intake [phone], They confirmed they received the note. * Edyta DO Merline - 12/05/2022 9:08 AM EST Images from the original note were not included. Progress Note Chief Complaint/Visit Reason: My incision did not look good and they sent me back to the hospital. Impression: This patient is a 67-year-old male with past medical history of hypertension, hyperlipidemia, hypothyroidism, GERD, and recent diagnosis of multiple myeloma with T2 and T7 pathological fractures withepidural tumor and subsequent cord compression. He underwent thoracic decompression and removal of T2 and T7 epidural tumor by laminectomy, facetectomy, and foraminotomy as well as posterior thoracicfusion of C7-T4 by screw fixation on 11/11/[address] Tao. Patient has been doing therapy at [facility] in [place] and staff noted that his incision began looking erythematous, copious drainage. He was sent back to [facility] for evaluation by neurosurgery. To IR on 12/02 for drain placement and fluid sent for culture, no growth. Wound care team consulted and gave wound care recommendations. Patient remained nontoxic-no fevers, no leukocytosis, clinically very stable. Patient to return to [facility] in [place], remains inpatient through the weekend awaiting pre-CERT. Diagnoses: Postoperative wound infection versus seroma. Multiple myeloma with T2 and T7 pathological fractures with epidural tumor status post C7-T4 posterior thoracic fusion with fixation and removal of epidural tumor with laminectomy, facetectomy, and foraminotomy by Dr. Tao on 11/11/2022. 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 Hypertension. Hyperlipidemia. Hypothyroidism. GERD. Plan: Drain placed in IR putting out very little additional fluid. Neurosurgery will discontinue on the day of discharge per their notes. Blood and wound cultures remained negative. Continue Ancef while inpatient, can DC at discharge. ET RN input appreciated-deborah removed on 12/03 and dressing change recommendations added to depart. PT/OT continues to recommend SNF. Changed Vanegas catheter in the ER. Diet as tolerated. DVT prophylaxis: SCDs Code Status: Full code. Disposition: Patient is medically stable for discharge back to [facility] in [place], awaiting pre-CERT. Discussedwith case management. Previously, patient lived alone, was working full-time in his job at the [employer] in [place] prior to his diagnosis of multiple myeloma in October 2022. His brother lives in [facility] and is his POA. No spouse or children. Discussed with case management-patient needs help with disability paperwork. Edyta Rick, [facility] ([facility]) Subjective: Patient is again awake and alert, chatty and appropriate. Denies fevers or chills. Appetite has been good and he processes all information. No family or friends at bedside. Review of Systems Vitals and Physical exam: Patient Vitals for the past 24 hrs: BP Temp Temp src Pulse Resp SpO2 12/05/22 0827 119/69 37.1 C (98.8 F) Oral 85 14 97 % 12/05/22 0615 -- -- -- -- 14 -- 12/05/22 0500 -- -- -- -- 16 -- 12/05/22 0407 107/64 37.1 C (98.8 F) Oral 64 -- 95 % 12/05/22 0137 -- -- -- -- 14 -- 12/05/22 0037 -- -- -- -- 14 -- 12/04/22 2347 111/63 36.7 C (98.1 F) Oral 61 15 95 % 12/04/22 2139 -- -- -- -- 12 -- 12/04/227 -- -- -- -- 14 -- 12/04/22 1947 116/71 37 C (98.6 F) Oral 62 15 96 % 12/04/22 1500 105/62 36.7 C (98 F) Oral 67 16 95 % 12/04/22 1100 108/66 37.1 C (98.7 F) Oral 59 14 93 % Body mass index is 25.1 kg/m . Intake/Output Summary (Last 24 hours) at 12/05/2022 0908 Last data filed at 12/05/2022 0500 Gross per 24 hour Intake 720 ml Output 2475 ml Net -1755 ml Physical Exam Constitutional: General: He is not in acute distress. Appearance: He is normal weight. He is not ill-appearing or toxic-appearing. HENT: Head: Normocephalic and atraumatic. Mouth/Throat: Mouth: Mucous membranes are moist. Eyes: Extraocular Movements: Extraocular movements intact. Neck: Comments: Patient has a midline incision from his mid neck down to the thoracic region, erythematous but improved. [place] have been removed. Drain remains in place but no additional output. Cardiovascular: Rate and Rhythm: Normal rate and regular rhythm. Heart sounds: No murmur heard. Pulmonary: Effort: Pulmonary effort is normal. Breath sounds: Normal breath sounds. No wheezing or rhonchi. Abdominal: General: Bowel sounds are normal. Palpations: Abdomen is soft. Tenderness: There is no abdominal tenderness. Musculoskeletal: Right lower leg: No edema. Left lower leg: No edema. Skin: General: Skin is dry. Coloration: Skin is pale. Neurological: Mental Status: He is alert and oriented to person, place, and time. Comments: Cognitively intact, excellent historian. Psychiatric: Thought Content: Thought content normal. Recent Lab Results: Results from last 7 days Lab Units 12/05/22 0415 12/04/22 0434 12/03/22 0450 12/01/22 2044 SODIUM mmol/L 137 137 137 135* POTASSIUM mmol/L 4.2 4.0 3.8 3.5* CHLORIDE mmol/L 103 102 102 99 CO2 mmol/L 28 27 28 28 BUN mg/dL 15 15 17 18 CREATININE mg/dL 0.56* 0.54* 0.72 0.54* Results from last 7 days Lab Units 12/01/22 2044 WBC AUTO K/mcL 6.6 TOTAL COUNTED 100 HEMOGLOBIN g/dL 10.5* HEMATOCRIT % 32.2* PLATELETS K/mcL 167 MCV FL 93.1 Recent Imaging Findings: CT Guided Perc Drain Plcmnt Narrative: CT guided abscess drain placement INDICATION: Fluid collection postoperatively STAFF: Palmer DEE FLUOROSCOPY TIME: None. COMPLICATIONS: None EBL: <5 ml MEDICATIONS: 2% lidocaine local. PROCEDURE: Time-out was performed to confirm the correct patient, procedure, and site. The patient was placed prone. A site overlying the back was marked prepped and draped in sterile fashion. Skin prep was allowed to fully dry. The skin was anesthetized with LIDOCAINE. Under CT guidance a 12-Austrian pigtail drainage catheter was placed within the collection. 10 mL of serosanguineous fluid was aspirated and sent for analysis. The catheter was sutured to the skin and then attached togravity drainage. PATIENT DISPOSITION: Discharged from the department in stable condition. Impression: Technically successful CT-guided 12-Austrian drain placement within postoperative fluid collection in the upper back -------- FINAL REPORT -------- Dictated By: Louie Chakraborty Dictated Date: 12/02/2022 14:39 Assigned Physician: Louie Chakraborty Reviewed and Electronically Signed By: Louie Chakraborty Signed Date: 12/02/2022 14:41 Workstation ID: [id number] Transcribed By: Self Edit Transcribed Date: 12/02/2022 14:39 MR Thoracic Spine wo and w Contrast Narrative: EXAMINATION TYPE: MR THORACIC SPINE WO AND W CONTRAST, MR CERVICAL SPINE WO AND W CONTRAST DATE OF EXAM ORDERED: 12/02/2022 2:19 AM HISTORY: pathologic T7 compression fracture with retropulsion, post op fluid collection, likely seroma COMPARISON: CT 12/01/2022, MR 11/10/2022 TECHNIQUE: MR cervical and thoracic spine with and without contrast FINDINGS: THORACIC SPINE: At T7, there is an enhancing mass with associated pathologic compression fracture. There has been progression of vertebral body height loss since the prior examination from 11/10/2022, as well as increased retropulsion of bony fragments into the spinal canal at this level. Retropulsion of bony fragments results in fairly severe narrowing of the thecal sac at this level, as well as cord compressionand mildly increased cord signal intensity from the T6-7 through T7-8 levels. The extent of compression is improved compared to the prior preoperative examination from 11/10/2022. Posterior laminectomy has been performed at the T5 level. Smaller enhancing lesions are present in the T10 and T11 vertebral bodies. There has been resection of a mass previously noted at the T2 level, spinal fusion hardware from [id number] T4. A small amount of residual enhancing tissue in the left neural foramen at T2-3 may represent granulation tissue or residual tumor. Previously noted cord compression in this area has improved. In the posterior paraspinal soft tissues, there is a fluid collection along the midline and slightly right of midline extending from the cervicothoracic junction to the T8 level. This abuts the spinous processes and abuts the facet joints near the levels of the surgical hardware. This is also contiguous with the laminectomy defects at the T7 level and in the upper thoracic spine at the areas of fusion. No additional cord signal abnormality is identified. Postsurgical changes are present elsewhere in the paraspinal soft tissues. Trace bilateral pleural effusions are noted. CERVICAL SPINE: Posterior fusion has been performed from C7 through T4. Focal kyphosis is noted in the upper thoracic spine. Alignment is otherwise maintained. There is been resection of the previously noted mass atthe T2 level. There is some residual enhancing tissue within the left foramen at the T2-3 level, which could represent residual tumor or granulation tissue. No additional discrete lesion is identified. No abnormal cord signal intensity is identified in the cervical cord. The craniocervical junction is intact. Postsurgical changes are present in the posterior paraspinal soft tissues in the lower cervical andupper thoracic region. In the posterior paraspinal soft tissues near the midline into the right of midline, there is a peripherally enhancing fluid collection extending from the C5 level inferiorly into the upper thoracic region. This extends to the laminectomy defect at the lower cervical and upper thoracic spine. There is no significant associated mass effect on the thecal sac. Evaluation of the lower cervical spine is somewhat limited by susceptibility artifact from surgicalhardware. Multilevel mild to moderate degenerative changes are present in the lower cervical spine,grossly similar to the prior examination. Impression: At the T7 level, there has been progression of a severe compression fracture and retropulsion of bony fragments into the spinal canal. Posterior decompression has been performed at this level. There is compression of the cord at this level with increased cord signal intensity as above. The overall extent of cord compression at this level is decreased compared to the prior postoperative examination from 11/10/2022. Resection of the previously noted mass at the T2 level. There is a small residual enhancing tissue in the left T2-T3 neural foramen, which may represent granulation tissue or an element of residual mass. Cord compression in this area has improved. Enhancing masses in the T10 and T11 vertebral bodies, not significantly changed. In the posterior paraspinal soft tissues, there is a large fluid collection at the midline and slightly right of midline, which extends from approximately the C5 level to the T8 level. There is some extension of the fluid collection to the laminectomy defects at T2 and T7. Some peripheral enhancement is present. This may represent a postoperative seroma, however, sterility is not confirmed. Clinical correlation is recommended. -------- FINAL REPORT -------- Dictated By: Shay Dallas Dictated Date: 12/02/2022 07:20 Assigned Physician: Shay Dallas Reviewed and Electronically Signed By: Shay Dallas Signed Date: 12/02/2022 07:48 Workstation ID: [id number] Transcribed By: Self Edit Transcribed Date: 12/02/2022 07:20 MR Cervical Spine wo and w Contrast Narrative: EXAMINATION TYPE: MR THORACIC SPINE WO AND W CONTRAST, MR CERVICAL SPINE WO AND W CONTRAST DATE OF EXAM ORDERED: 12/02/2022 2:19 AM HISTORY: pathologic T7 compression fracture with retropulsion, post op fluid collection, likely seroma COMPARISON: CT 12/01/2022, MR 11/10/2022 TECHNIQUE: MR cervical and thoracic spine with and without contrast FINDINGS: THORACIC SPINE: At T7, there is an enhancing mass with associated pathologic compression fracture. There has been progression of vertebral body height loss since the prior examination from 11/10/2022, as well as increased retropulsion of bony fragments into the spinal canal at this level. Retropulsion of bony fragments results in fairly severe narrowing of the thecal sac at this level, as well as cord compressionand mildly increased cord signal intensity from the T6-7 through T7-8 levels. The extent of compression is improved compared to the prior preoperative examination from 11/10/2022. Posterior laminectomy has been performed at the T5 level. Smaller enhancing lesions are present in the T10 and T11 vertebral bodies. There has been resection of a mass previously noted at the T2 level, spinal fusion hardware from [id number] T4. A small amount of residual enhancing tissue in the left neural foramen at T2-3 may represent granulation tissue or residual tumor. Previously noted cord compression in this area has improved. In the posterior paraspinal soft tissues, there is a fluid collection along the midline and slightly right of midline extending from the cervicothoracic junction to the T8 level. This abuts the spinous processes and abuts the facet joints near the levels of the surgical hardware. This is also contiguous with the laminectomy defects at the T7 level and in the upper thoracic spine at the areas of fusion. No additional cord signal abnormality is identified. Postsurgical changes are present elsewhere in the paraspinal soft tissues. Trace bilateral pleural effusions are noted. CERVICAL SPINE: Posterior fusion has been performed from C7 through T4. Focal kyphosis is noted in the upper thoracic spine. Alignment is otherwise maintained. There is been resection of the previously noted mass atthe T2 level. There is some residual enhancing tissue within the left foramen at the T2-3 level, which could represent residual tumor or granulation tissue. No additional discrete lesion is identified. No abnormal cord signal intensity is identified in the cervical cord. The craniocervical junction is intact. Postsurgical changes are present in the posterior paraspinal soft tissues in the lower cervical andupper thoracic region. In the posterior paraspinal soft tissues near the midline into the right of midline, there is a peripherally enhancing fluid collection extending from the C5 level inferiorly into the upper thoracic region. This extends to the laminectomy defect at the lower cervical and upper thoracic spine. There is no significant associated mass effect on the thecal sac. Evaluation of the lower cervical spine is somewhat limited by susceptibility artifact from surgicalhardware. Multilevel mild to moderate degenerative changes are present in the lower cervical spine,grossly similar to the prior examination. Impression: At the T7 level, there has been progression of a severe compression fracture and retropulsion of bony fragments into the spinal canal. Posterior decompression has been performed at this level. There is compression of the cord at this level with increased cord signal intensity as above. The overall extent of cord compression at this level is decreased compared to the prior postoperative examination from 11/10/2022. Resection of the previously noted mass at the T2 level. There is a small residual enhancing tissue in the left T2-T3 neural foramen, which may represent granulation tissue or an element of residual mass. Cord compression in this area has improved. Enhancing masses in the T10 and T11 vertebral bodies, not significantly changed. In the posterior paraspinal soft tissues, there is a large fluid collection at the midline and slightly right of midline, which extends from approximately the C5 level to the T8 level. There is some extension of the fluid collection to the laminectomy defects at T2 and T7. Some peripheral enhancement is present. This may represent a postoperative seroma, however, sterility is not confirmed. Clinical correlation is recommended. -------- FINAL REPORT -------- Dictated By: Shay Dallas Dictated Date: 12/02/2022 07:20 Assigned Physician: Shay Dallas Reviewed and Electronically Signed By: Shay Dallas Signed Date: 12/02/2022 07:48 Workstation ID: [id number] Transcribed By: Self Edit Transcribed Date: 12/02/2022 07:20 CT Cervical Spine w Contrast Narrative: EXAMINATION TYPE: CT CERVICAL SPINE W CONTRAST, CT THORACIC SPINE W CONTRAST DATE OF EXAM ORDERED: 12/01/2022 10:12 PM HISTORY: post-op infection concern, recent thoracic lower cervical surgery on 11/11. Drainage from surgical wound, CONTRAST USED: 100 mL [id number] COMPARISON: CT thoracic spine 11/11/2022, MRI cervical and thoracic spine 11/10/2022 TECHNIQUE: Contiguous axial, coronal and sagittal images were obtained through the cervical and thoracic spine following intravenous contrast administration. FINDINGS: CT CERVICAL SPINE: Skull base is intact. Atlantoaxial joint is unremarkable. There is convex left scoliosis noted. The vertebrae are otherwise normally aligned. No acute cervical fracture is seen. Disc spaces well-preserved from C2-3 through C4-5. At C5-6 again noted is bulging disc and osteophyte complex without significant spinal stenosis. At C6-7 there is also mild bulging the disc with no significant spinal stenosis. Again noted are changes of posterior instrumented fixation with spinal rods and pedicle screws in the C7 and T1 vertebrae as well as the T3 and T4 vertebrae without acute complication. Destructive changes and severe compression of the T2 vertebral body again noted. Surgical drain is been removed and overlying skin deborah of the lower cervical and thoracic region remain in place. There has been interval development of a large fluid collection in the posterior soft tissues overlying the surgicalbed measuring approximately 7 cm in cephalocaudal length maximum transverse diameter of 6.2 cm AP by 11.2 cm transverse on image one series 8 overlying the lower cervical and upper thoracic vertebralbodies, this collection does not communicate with the thecal sac and is likely a large postoperative seroma, it contains no air bubbles to suggest an abscess which is less likely. There is no associated wall enhancement of this fluid collection. Surrounding subcutaneous edema is noted. CT THORACIC SPINE: Severe compression pathologic fracture deformity of the T7 vertebral body has progressed since the prior exam now with vertebral plana deformity. Extensive destructive changes of this vertebra extending into the left-sided pedicle are noted. No obvious enhancing tumor noted within the spinal canal.There is 5 mm of retropulsion of the posterior inferior corner of this fractured vertebral body into the spinal canal noted narrowing of the midline thecal sac diameter to 6 mm with some mild compression of the right thoracic spinal cord not seen on the prior exam. It is difficult to estimate extent of any epidural tumor that may be present at this level. Remaining vertebrae demonstrate no compression fractures, with diffuse marrow abnormalities consistent with metastatic disease.. No other significant spinal stenosis is seen. Impression: 1. Interval progression of severe pathologic fracture of the T7 vertebral body now withvertebral plana, extensive destructive changes including the left-sided pedicle. Interval development of 5 mm of retropulsion of the bone fragment into the spinal canal to the right of midline now with mild compression of the right thoracic spinal cord not seen on the prior exam with 6 mm midline AP thecal sac diameter. 2. Postoperative changes of posterior instrumented fixation from C7 to T4 as noted on 11/11/2022 bridging pathologic fracture at the T2 level. New superficial fluid collection in the posterior soft tissues overlying the surgical bed without communication with the thecal sac likely a postoperative se leonard measuring 6 x 11 x 7 cm, this is unlikely to represent an abscess. CRITICAL DOCUMENT ONLY finding communicated directly to Marcello Fisher DO and documented in the [employer] system on 12/02/2022 12:31 AM, Message ID [id number]. -------- FINAL REPORT -------- Dictated By: Ricky Walters Dictated Date: 12/02/2022 00:09 Assigned Physician: Ricky Walters Reviewed and Electronically Signed By: Ricky Walters Signed Date: 12/02/2022 00:32 Workstation ID: [id number] Transcribed By: Self Edit Transcribed Date: 12/02/2022 00:09 CT Thoracic Spine w Contrast Narrative: EXAMINATION TYPE: CT CERVICAL SPINE W CONTRAST, CT THORACIC SPINE W CONTRAST DATE OF EXAM ORDERED: 12/01/2022 10:12 PM HISTORY: post-op infection concern, recent thoracic lower cervical surgery on 11/11. Drainage from surgical wound, CONTRAST USED: 100 mL [id number] COMPARISON: CT thoracic spine 11/11/2022, MRI cervical and thoracic spine 11/10/2022 TECHNIQUE: Contiguous axial, coronal and sagittal images were obtained through the cervical and thoracic spine following intravenous contrast administration. FINDINGS: CT CERVICAL SPINE: Skull base is intact. Atlantoaxial joint is unremarkable. There is convex left scoliosis noted. The vertebrae are otherwise normally aligned. No acute cervical fracture is seen. Disc spaces well-preserved from C2-3 through C4-5. At C5-6 again noted is bulging disc and osteophyte complex without significant spinal stenosis. At C6-7 there is also mild bulging the disc with no significant spinal stenosis. Again noted are changes of posterior instrumented fixation with spinal rods and pedicle screws in the C7 and T1 vertebrae as well as the T3 and T4 vertebrae without acute complication. Destructive changes and severe compression of the T2 vertebral body again noted. Surgical drain is been removed and overlying skin deborah of the lower cervical and thoracic region remain in place. There has been interval development of a large fluid collection in the posterior soft tissues overlying the surgicalbed measuring approximately 7 cm in cephalocaudal length maximum transverse diameter of 6.2 cm AP by 11.2 cm transverse on image one series 8 overlying the lower cervical and upper thoracic vertebralbodies, this collection does not communicate with the thecal sac and is likely a large postoperative seroma, it contains no air bubbles to suggest an abscess which is less likely. There is no associated wall enhancement of this fluid collection. Surrounding subcutaneous edema is noted. CT THORACIC SPINE: Severe compression pathologic fracture deformity of the T7 vertebral body has progressed since the prior exam now with vertebral plana deformity. Extensive destructive changes of this vertebra extending into the left-sided pedicle are noted. No obvious enhancing tumor noted within the spinal canal.There is 5 mm of retropulsion of the posterior inferior corner of this fractured vertebral body into the spinal canal noted narrowing of the midline thecal sac diameter to 6 mm with some mild compression of the right thoracic spinal cord not seen on the prior exam. It is difficult to estimate extent of any epidural tumor that may be present at this level. Remaining vertebrae demonstrate no compression fractures, with diffuse marrow abnormalities consistent with metastatic disease.. No other significant spinal stenosis is seen. Impression: 1. Interval progression of severe pathologic fracture of the T7 vertebral body now withvertebral plana, extensive destructive changes including the left-sided pedicle. Interval development of 5 mm of retropulsion of the bone fragment into the spinal canal to the right of midline now with mild compression of the right thoracic spinal cord not seen on the prior exam with 6 mm midline AP thecal sac diameter. 2. Postoperative changes of posterior instrumented fixation from C7 to T4 as noted on 11/11/2022 bridging pathologic fracture at the T2 level. New superficial fluid collection in the posterior soft tissues overlying the surgical bed without communication with the thecal sac likely a postoperative se leonard measuring 6 x 11 x 7 cm, this is unlikely to represent an abscess. CRITICAL DOCUMENT ONLY finding communicated directly to Marcello Fisher DO and documented in the [employer] system on 12/02/2022 12:31 AM, Message ID [id number]. -------- FINAL REPORT -------- Dictated By: Ricky Walters Dictated Date: 12/02/2022 00:09 Assigned Physician: Ricky Walters Reviewed and Electronically Signed By: Ricky Walters Signed Date: 12/02/2022 00:32 Workstation ID: [id number] Transcribed By: Self Edit Transcribed Date: 12/02/2022 00:09 Allergies: No Known Allergies * María Rutherford PT - 12/05/2022 8:20 AM EST Physical Therapy Patient: Armand Barron Age: 67 y.o. Sex: male Infected wound [facility] Physical Therapy Evaluation Multi-Disciplinary Rounding Report Ambulation: Walking Assistance: Not attempted, medical/safety concerns PLOF: Level of Long: Independent with mobility and functional transfers Type of Home: Subacute rehab Prior Function Comments: Independent prior to surgery, working on sitting and sitting balance, transfers at rehab DME Needs: PT Discharge Recommendation: half-way facility placement Reason for current recommendation based on assessment: Return to facility to continue rehab. Not safe to return home. SUBJECTIVE Agreeable to sit up. Past Medical History: Diagnosis Date Cord compression (CMS/HCC) 11/10/2022 T2-T7 cord compression Vaengas catheter in place 11/10/2022 Hypercholesteremia Hypertension Hypothyroidism Multiple myeloma (CMS/HCC) 2022 Stapled skin wound 2022 thoracic spine Vitamin deficiency Past Surgical History: Procedure Laterality Date CHOLECYSTECTOMY 09/27/1989 SPINAL CORD DECOMPRESSION 11/11/2022 Fusion Decompression T8-T9, T2 tumor removal, T2-T7 spinal cord compression OBJECTIVE Precautions: Precautions Medical Precautions: Fall Risk Safety Interventions: Call lock within reach, Bed alarm Orthopedic Precautions: Cervical Precautions Vitals/Pain: Pain Assessment Pain Assessment: 0-10 Pain Score: 3 Pain Type: Acute pain, Chronic pain Pain Location: Generalized Cognition: Cognition Orientation Level: Oriented X4 Home Living: Home Living Type of Home: Subacute rehab Prior Function: Prior Function Level of Long: Independent with mobility and functional transfers Indoor Mobility Assistance: Independent Stairs Assistance : Independent Prior Function Comments: Independent prior to surgery, working on sitting and sitting balance, transfers at rehab General Assessments: Activity Tolerance Endurance: Tolerates 10 - 20 min exercise with multiple rests Static Sitting Balance Static Sitting-Level of Assistance: Contact guard, Minimum assistance Static Sitting-Balance Support: Right upper extremity supported, Left upper extremity supported Dynamic Sitting Balance Dynamic Sitting-Level of Assistance: Minimum assistance, Moderate assistance Dynamic Sitting-Balance Support: Unilateral upper extremity supported Sensation Light Touch: No apparent deficits Proprioception Proprioception: No apparent deficits Perception Initiation: Appears intact Postural Control Postural Control: Deficits on evaluation Trunk Control: Impaired with weakness Functional Assessments: Bed Mobility Rolling Left and Right Assistance: Moderate assistance Sitting to Lying Assistance: Maximum assistance Lying to Sitting Assistance: Maximum assistance Transfers Sit to Stand Assistance: Not attempted, medical/safety concerns Ambulation Walking Assistance: Not attempted, medical/safety concerns Extremity Assessments: RUE Assessment RUE Assessment: Within Functional Limits LUE Assessment LUE Assessment: Within Functional Limits RLE Assessment RLE Assessment: Impaired RLE Assessment Comments: HF 2-/5, KE 2+/5, KF 2-/5, PF 2-/5, DF 2-/5 LLE Assessment LLE Assessment: Impaired LLE Assessment Comments: HF 2/5, KE 3+/5, KF 2+/5, PF 2/5, DF 2-/5 Additional Assessments: AM-PAC 6 Clicks Scoring Form: Unable: 1 A Lot: 2 A Little: 3 None: 4 How much difficulty does the patient currently have? Turning over in bed (including adjustment of bedclothes, sheets, and blankets) [] [x] [] [] Sitting down on and standing up from a chair with arms (wheelchair, bedside commode etc [x] [] [] [] Moving from lying on back to sitting on the side of the bed [] [x] [] [] How much help from another person does the patient currently need? Moving to and from a bed to a chair ( including a wheelchair) [] [x] [] [] To walk in hospital room [x] [] [] [] Climbing 3-5 steps with a railing [x] [] [] [] Score: 06/20 Procedure/Treatment: Therapeutic Activity Therapeutic Activity Time Entry: 10 Therapeutic Activity 1: Static and dynamic sitting balance Other Activities: ASSESSMENT Physical therapy evaluation completed. Patient in bed on arrival, spinal drain in place. 12/04 generalized pain. Presents with dense BLE weakness, LLE stronger than right. Log roll for supine <>sit, rolls with modA but needed maxA to move legs and then bring trunk upright. Worked on sitting balance tasks, up to modA for balance with dynamic. Tolerated sitting up about 10 minutes before fatig uing. Motivated and good rehab candidate. PT Assessment PT Assessment/ Barriers to discharge: Decreased strength, Decreased range of motion, Impaired balance, Decreased endurance, Impaired gait, Decreased mobility, Pain Prognosis: Fair Evaluation/Treatment Tolerance: Patient limited by fatigue PLAN Acute Care Plan: Treatment/Interventions: Functional transfer training, LE strengthening/ROM, Endurance training, Equipment eval/education, Patient/family training, Bed mobility, Gait training, Compensatory techniqueeducation, Balance training PT Plan: Skilled PT PT Frequency: 5 days per week PT Duration of Sessions: PRN PT Treatments per day: 1 time per day PT Discharge Recommendations: half-way facility placement Encounter Problems Encounter Problems (Active) Template: Physical Therapy Problem: Balance Goal: Maintains dynamic sitting balance with upper extremity support Dates: Start: 12/05/22 Expected End: 12/11/22 Description: Goal Type: STG, Performance Level: Contact guard Problem: Transfers Goal: Transfer from bed to chair. Dates: Start: 12/05/22 Expected End: 12/11/22 Description: Goal Type: STG, Performance Level: Contact guard with slide board Goal: Patient to transfer to and from sit to supine Dates: Start: 12/05/22 Expected End: 12/11/22 Description: Goal Type: STG, Performance Level: Min assist log roll Encounter Problems (Resolved) There are no resolved problems. EDUCATION Education Documentation Spine Precautions, taught by María Rutherford, PT at 12/05/2022 8:52 AM. Learner: Patient Readiness: Acceptance Method: Explanation Response: Verbalizes Understanding Comment: POC and sitting balance Body Mechanics, taught by María Rutherford PT at 12/05/2022 8:52 AM. Learner: Patient Readiness: Acceptance Method: Explanation Response: Verbalizes Understanding Comment: POC and sitting balance Mobility Training, taught by María Rutherford PT at 12/05/2022 8:52 AM. Learner: Patient Readiness: Acceptance Method: Explanation Response: Verbalizes Understanding Comment: POC and sitting balance Education Comments No comments found. * Liliana Esteban NP - 12/05/2022 7:47 AM EST Neurosurgery Progress Note Patient: Armand Barron Room: [facility]/[address] [place] [address] Age: 67 y.o. Attending: Edyta Rick DO Date of Service: 12/05/22 Admit: 12/01/2022 PCP: Salena Flores, TIP Addendum Cult aspirate final negative, anaerobic still pending Assessment/Plan Perpetual Assessment Patient with hx of C7-T4 posterior fusion by pedicle screw fixation, T2, T7 removal of epidural tumor by laminectomy, facetectomy, foraminotomy by Dr. Tao on 11/11/22. Presented 12/01 for evaluation of his incision of his posterior neck incision; concern for infection d/t significant drainage and erythema to the site, deborah in place. 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 New imaging shows progression of severe T7 pathologic compression fx and retropulsion of bony fragments into the spinal canal, and a post-op fluid collection. IR was consulted and a drain was placed 12/02. Wound care was consulted for incision. Wound care management. Wound care/dressing changes to mid thoracic surgical wound every 5 days as follows: Remove old dressing and alginate packing from small open area, irrigate the open area with NS, pack the 2 cm deep site of where there was a seroma using the alginate Ag rope packing (in room), cover with a long foam bordered dressing. Please date the dressing. T7 Pathologic Compression Fracture Post Op Fluid Collection -Imaging --12/01 CT C/T Spine with interval progression of severe pathologic fracture of the T7 vertebral bodywith 5 mm of retropulsion --12/02 MR C spine shows fluid collection in the cervical and thoracic spine - IR placed drain --12/02 Drain; upper midline back - placed by IR (will DC drain right before patient discharges) - Empty per shift and record output - On Ancef --Final cultures remain pending, preliminary without growth -- Wound care - as written -- Activity as tolerated -- VTE: BLE SCD's -- Pain per Primary Acute/Chronic Medical Issues - Primary and Medical Doctor Md s to Disposition/Plan --Keep drains - plan to remove @ discharge --Culture finals still pending --Return to [facility], requested precert --Okay to discharge from a Neurosurgical perspective, will DC drain the day the patient is leaving (review output) --Cleared for chemical VTE per Dinh- Dr Rick aware --This hospital visit can serve as 1 month F/U with Dr Tao - would like to follow up in 2 months in office or sooner if indicated Liliana Esteban NP Send message via KDW with further questions. Greater than 35 minutes were spent including face to face interview/education, and chart review including multiple provider notes, diagnostic testing results, and lab review. Greater than 50% of timespent in face to face counseling with patient. SUBSEQUENT ENCOUNTER 53398 Subjective Awake alert oriented and cooperative. DF and PF effort now present B/L LE. Rather impatient to return to [facility] to resume Radiation which is scheduled Wednesday. Precertpending, newest PT notes sent. Objective Vitals: 12/05/22 0615 BP: Pulse: Resp: 14 Temp: SpO2: T Max 98.8 WBC 5.3 Mental Status: Alert & oriented x4 Language: Speech is fluent, non-dysarthric, able to follow commands Fund of knowledge: aware of current events, vocabulary is normal Sensation: Sensory exam completed: grossly intact to light touch LLE great toe - indicated felt back of leg RLE great toe - able to indicate great toe Motor: Muscle strength was assessed in all extremities BUE grasp/biceps/triceps/deltoid = 5/5 BLE DF 1, PF = / GI: Abdomen rounded, BM today - RN to document Pulmonary: Respirations are regular and unlabored on RA Incision: Packed and covered with mepilex Specific orders for drsg changes placed in orders Drain: 12 fr midline incision Drainage sero serosanguinous 12/02 285 ml 12/03 82 ml 12/04 125 Medications Allergies: No Known Allergies Current Medications: Current Facility-Administered Medications: acetaminophen (TYLENOL) tablet 650 mg, 650 mg, oral, q6h PRN, Blade Palm, , 650 mg at 12/04/22 1449 amLODIPine (NORVASC) tablet 10 mg, 10 mg, oral, Daily, Blade Palm, DO, 10 mg at 12/04/22828 atorvastatin (LIPITOR) tablet 10 mg, 10 mg, oral, Daily, Blade Palm, DO, 10 mg at 12/04/22 08 ceFAZolin (ANCEF) 1 gram/10 mL IV syringe 1 g, 1 g, intravenous, q8h, Blade Palm, , 1 g at 12/05/22 0038 HYDROmorphone (DILAUDID) injection 0.5 mg, 0.5 mg, intravenous, q3h PRN, Blade Palm DO, 0.5 mg at 12/02/22 1347 levothyroxine (SYNTHROID, LEVOTHROID) tablet 88 mcg, 88 mcg, oral, Daily, Blade Palm DO, 88 mcg at 12/04/22828 melatonin tablet 6 mg, 6 mg, oral, Nightly, Blade Palm, DO, 6 mg at 12/04/222038 metoprolol tartrate (LOPRESSOR) tablet 50 mg, 50 mg, oral, BID, Blade Palm, , 50 mg at ondansetron ODT (ZOFRAN-ODT) disintegrating tablet 4 mg, 4 mg, oral, q8h PRN OR ondansetron (PF) (ZOFRAN) injection 4 mg, 4 mg, intravenous, q8h PRN, Blade Palm DO oxyCODONE (ROXICODONE) immediate release tablet 5 mg, 5 mg, oral, q4h PRN, Blade Palm, , 5 mg at 12/05/22 0515 pantoprazole (PROTONIX) EC tablet 40 mg, 40 mg, oral, q AM AC, Blade Palm DO, 40 mg at 12/05/22 0515 prochlorperazine (COMPAZINE) tablet 10 mg, 10 mg, oral, q6h PRN OR prochlorperazine (COMPAZINE)injection 10 mg, 10 mg, intravenous, q6h PRN OR prochlorperazine (COMPAZINE) suppository 25 mg,25 mg, rectal, q12h PRN, Blade Palm, DO senna-docusate (PERICOLACE) 8.6-50 mg per tablet 1 tablet, 1 tablet, oral, BID PRN, Blade Palm, DO, 1 tablet at 12/04/22 1646 [COMPLETED] Insert peripheral IV, , , Once AND Maintain IV access, , , Until discontinued AND [COMPLETED] Saline lock IV, , , Once AND sodium chloride 0.9 % flush 10 mL, 10 mL, intravenous, BID, 10 mL at 12/04/222038 AND sodium chloride 0.9 % flush 10 mL, 10 mL, intravenous, PRN, Blade Palm, DO, 10 mL at 12/02/22 1654 traZODone (DESYREL) tablet 50 mg, 50 mg, oral, Nightly PRN, [employer], DO Radiology/Diagnostics No new imaging for review Labs Lab Results Component Value Date CREATININE 0.56 (L) 12/05/2022 BUN 15 12/05/2022 NA 137 12/05/2022 K 4.2 12/05/2022 CL 103 12/05/2022 CO2 28 12/05/2022 PT 13.5 12/02/2022 INR 1.0 12/02/2022 Lab Results Component Value Date BLOODCX No growth at 2 days 12/01/2022 BLOODCX No growth at 2 days 12/01/2022 * Katie Luciano RN - 12/05/2022 5:25 AM EST Problem: Skin Integrity: Goal: Risk for impaired skin integrity will decrease Outcome: Not Progressing Problem: Health Behavior: Goal: Patient Specific Outcome Outcome: Progressing Goal: Patient Specific Outcome Outcome: Progressing Problem: Physical Regulation: Goal: Signs and symptoms of infection will decrease Outcome: Progressing Goal: Diagnostic test results will improve Outcome: Progressing Goals: Clinical Goals for the Shift: Decrease pain/ABX as ordered Identify possible barriers to meeting goals/advancing plan of care: infection Stability of the patient: Moderately Stable - Low risk of patient condition declining or worsening End of Shift Summary: Patient is stable overnight with continuous back pain, oxy prn administered per orders, patient not compliant with turns in order to prevent skin breakdown, education offered however no evidence of learning is noted. Plan of care updated * Remedios Ward RN - 12/04/2022 6:46 PM EST Problem: Cognitive: Goal: Dizziness Outcome: Progressing Goal: Volume and Electrolyte Status Outcome: Progressing Goal: Communication/Sensory Outcome: Progressing Problem: Skin Integrity: Goal: Will not develop new pressure injury Outcome: Progressing Problem: Cognitive: Goal: Understanding of ways to prevent future skin breakdown will improve Outcome: Progressing Problem: Nutritional: Goal: Nutritional status will improve Outcome: Progressing Problem: Physical Regulation: Goal: Diagnostic test results will improve Outcome: Progressing Goals: Clinical Goals for the Shift: Decrease pain/ABX as ordered Identify possible barriers to meeting goals/advancing plan of care: impaired mobility Stability of the patient: Moderately Stable - Low risk of patient condition declining or worsening End of Shift Summary: will continue to monitor * Callie Castanon RN - 12/04/2022 3:01 PM EST Reviewed documentation, supervised nursing care and student provided a safe medication pass from 0700 to 1501. Callie Castanon RN MSN, [facility]. * Sisi Segovia NP - 12/04/2022 1:14 PM EST Neurosurgery Progress Note Patient: Armand Barron Room: [facility]/[address] [place] [address] Age: 67 y.o. Attending: Edyta Rick DO Date of Service: 12/04/22 Admit: 12/01/2022 PCP: Salena Flores, [employer] Assessment/Plan Armand Barron is a 67 y/o M who presented 12/01 for evaluation of his incision, S/P C7-T4 posterior fusion by pedicle screw fixation, T2, T7 removal of epidural tumor by laminectomy, facetectomy, foraminotomy by Dr. Tao 11/11/22. He was brought to [facility] for evaluation of his posterior neck incision; concern for infection d/t significant drainage and erythema to the site, deborah in place. He is established at [facility] and was supposed to start radiation 12/02 (Multiple Myeloma). While inthe ED, he had imaging done which shows progression of severe T7 pathologic compression fx and retropulsion of bony fragments into the spinal canal, and a post-op fluid collection. IR was consulted and a drain was placed. Wound care was consulted for incision. Wound care saw the patient for evaluation and management. - Wound care/dressing changes to mid thoracic surgical wound every 5 days as follows: Remove old dressing and alginate packing from small open area, irrigate the open area with NS, pack the 2 cm deep site of where there was a seroma using the alginate Ag rope packing (in room), cover with a long foam bordered dressing. Please date the dressing. T7 Pathologic Compression Fracture Post Op Fluid Collection - CT C/T Spine with interval progression of severe pathologic fracture of the T7 vertebral body with 5 mm of retropulsion - MR C spine shows fluid collection in the cervical and thoracic spine - IR placed drain - Drain; upper midline back - placed by IR on 12/02 (will DC drain right before patient discharges) - Empty per shift and record output - On Ancef -Final cultures are pending, preliminary without growth - Routine neuro checks - notify FREDI with any change in neuro exam - Wound care consulted -Plan is for wound care/dressing changes to mid thoracic surgical wound every 5 days as follows: Remove old dressing and alginate packing from small open area, irrigate the open area with NS, pack the 2 cm deep site of where there was a seroma using the alginate Ag rope packing (in room), cover with a long foam bordered dressing. Please date the dressing. - Activity as tolerated - VTE: BLE SCD's - Pain per Primary Disposition: - ADOD: Okay to discharge from a Neurosurgical perspective, will DC drain the day the patient is leaving. Greater than 25minutes were spent including face to face interview/education, and chart review including multiple provider notes, diagnostic testing results, and lab review. Greater than 50% of time spent in face to face counseling with patient. Sisi Segovia [employer] Send message via KDW with further questions. Subjective The patient states his pain is well controlled. He states when he has pain, it is in his right lower back. He denies new numbness/tingling. He states he is moving his bowels. Objective Vitals: 12/04/22 1100 BP: 108/66 Pulse: 59 Resp: 14 Temp: 37.1 C (98.7 F) SpO2: 93% Physical Exam Mental Status: Alert & oriented x4 Language: Speech is fluent, non-dysarthric, able to follow commands Fund of knowledge: aware of current events, vocabulary is normal Sensation: Sensory exam completed: grossly intact to light touch Motor: Muscle strength was assessed in all extremities BUE grasp/biceps/triceps/deltoid = 5/5 BLE DF/KF/KE/HF/HE = 0/5, PF = 1/5 GI: Abdomen soft, nontender Pulmonary: Respirations are regular and unlabored Incision: Packed and covered with mepilex Medications Allergies: No Known Allergies Current Medications: Current Facility-Administered Medications: acetaminophen (TYLENOL) tablet 650 mg, 650 mg, oral, q6h PRN, [employer], DO, 650 mg at 12/02/22 1708 amLODIPine (NORVASC) tablet 10 mg, 10 mg, oral, Daily, [employer], DO, 10 mg at 12/04/22 0829 atorvastatin (LIPITOR) tablet 10 mg, 10 mg, oral, Daily, [employer], DO, 10 mg at 12/04/22 0829 ceFAZolin (ANCEF) 1 gram/10 mL IV syringe 1 g, 1 g, intravenous, q8h, [employer], DO, 1 g at 12/04/22 0830 HYDROmorphone (DILAUDID) injection 0.5 mg, 0.5 mg, intravenous, q3h PRN, [employer], DO, 0.5 mg at 12/02/22 1347 levothyroxine (SYNTHROID, LEVOTHROID) tablet 88 mcg, 88 mcg, oral, Daily, Blade Palm DO, 88 mcg at 12/04/22 0829 melatonin tablet 6 mg, 6 mg, oral, Nightly, Blade Palm DO, 6 mg at 12/03/222026 metoprolol tartrate (LOPRESSOR) tablet 50 mg, 50 mg, oral, BID, Blade Palm DO, 50 mg at ondansetron ODT (ZOFRAN-ODT) disintegrating tablet 4 mg, 4 mg, oral, q8h PRN OR ondansetron (PF) (ZOFRAN) injection 4 mg, 4 mg, intravenous, q8h PRN, Blade Palm DO oxyCODONE (ROXICODONE) immediate release tablet 5 mg, 5 mg, oral, q4h PRN, Blade Palm DO, 5 mg at 12/04/22 1236 pantoprazole (PROTONIX) EC tablet 40 mg, 40 mg, oral, q AM AC, Blade Palm DO, 40 mg at 12/04/22 0608 prochlorperazine (COMPAZINE) tablet 10 mg, 10 mg, oral, q6h PRN OR prochlorperazine (COMPAZINE)injection 10 mg, 10 mg, intravenous, q6h PRN OR prochlorperazine (COMPAZINE) suppository 25 mg,25 mg, rectal, q12h PRN, Blade Palm DO senna-docusate (PERICOLACE) 8.6-50 mg per tablet 1 tablet, 1 tablet, oral, BID PRN, Blade Palm DO [COMPLETED] Insert peripheral IV, , , Once AND Maintain IV access, , , Until discontinued AND [COMPLETED] Saline lock IV, , , Once AND sodium chloride 0.9 % flush 10 mL, 10 mL, intravenous, BID, 10 mL at 12/04/22 0831 AND sodium chloride 0.9 % flush 10 mL, 10 mL, intravenous, PRN, Blade Palm DO, 10 mL at 12/02/22 1654 sodium chloride 0.9 % infusion - ADS Override Pull, , , , traZODone (DESYREL) tablet 50 mg, 50 mg, oral, Nightly CHETANN, Blade Palm DO Radiology/Diagnostics Results for orders placed during the hospital encounter of 12/01/22 MR Thoracic Spine wo and w Contrast Narrative EXAMINATION TYPE: MR THORACIC SPINE WO AND W CONTRAST, MR CERVICAL SPINE WO AND W CONTRAST DATE OF EXAM ORDERED: 12/02/2022 2:19 AM HISTORY: pathologic T7 compression fracture with retropulsion, post op fluid collection, likely seroma COMPARISON: CT 12/01/2022, MR 11/10/2022 TECHNIQUE: MR cervical and thoracic spine with and without contrast FINDINGS: THORACIC SPINE: At T7, there is an enhancing mass with associated pathologic compression fracture. There has been progression of vertebral body height loss since the prior examination from 11/10/2022, as well as increased retropulsion of bony fragments into the spinal canal at this level. Retropulsion of bony fragments results in fairly severe narrowing of the thecal sac at this level, as well as cord compressionand mildly increased cord signal intensity from the T6-7 through T7-8 levels. The extent of compression is improved compared to the prior preoperative examination from 11/10/2022. Posterior laminectomy has been performed at the T5 level. Smaller enhancing lesions are present in the T10 and T11 vertebral bodies. There has been resection of a mass previously noted at the T2 level, spinal fusion hardware from [id number] T4. A small amount of residual enhancing tissue in the left neural foramen at T2-3 may represent granulation tissue or residual tumor. Previously noted cord compression in this area has improved. In the posterior paraspinal soft tissues, there is a fluid collection along the midline and slightly right of midline extending from the cervicothoracic junction to the T8 level. This abuts the spinous processes and abuts the facet joints near the levels of the surgical hardware. This is also contiguous with the laminectomy defects at the T7 level and in the upper thoracic spine at the areas of fusion. No additional cord signal abnormality is identified. Postsurgical changes are present elsewhere in the paraspinal soft tissues. Trace bilateral pleural effusions are noted. CERVICAL SPINE: Posterior fusion has been performed from C7 through T4. Focal kyphosis is noted in the upper thoracic spine. Alignment is otherwise maintained. There is been resection of the previously noted mass atthe T2 level. There is some residual enhancing tissue within the left foramen at the T2-3 level, which could represent residual tumor or granulation tissue. No additional discrete lesion is identified. No abnormal cord signal intensity is identified in the cervical cord. The craniocervical junction is intact. Postsurgical changes are present in the posterior paraspinal soft tissues in the lower cervical andupper thoracic region. In the posterior paraspinal soft tissues near the midline into the right of midline, there is a peripherally enhancing fluid collection extending from the C5 level inferiorly into the upper thoracic region. This extends to the laminectomy defect at the lower cervical and upper thoracic spine. There is no significant associated mass effect on the thecal sac. Evaluation of the lower cervical spine is somewhat limited by susceptibility artifact from surgicalhardware. Multilevel mild to moderate degenerative changes are present in the lower cervical spine,grossly similar to the prior examination. Impression At the T7 level, there has been progression of a severe compression fracture and retropulsion of bony fragments into the spinal canal. Posterior decompression has been performed at this level. There is compression of the cord at this level with increased cord signal intensity as above. The overall extent of cord compression at this level is decreased compared to the prior postoperative examination from 11/10/2022. Resection of the previously noted mass at the T2 level. There is a small residual enhancing tissue in the left T2-T3 neural foramen, which may represent granulation tissue or an element of residual mass. Cord compression in this area has improved. Enhancing masses in the T10 and T11 vertebral bodies, not significantly changed. In the posterior paraspinal soft tissues, there is a large fluid collection at the midline and slightly right of midline, which extends from approximately the C5 level to the T8 level. There is some extension of the fluid collection to the laminectomy defects at T2 and T7. Some peripheral enhancement is present. This may represent a postoperative seroma, however, sterility is not confirmed. Clinical correlation is recommended. -------- FINAL REPORT -------- Dictated By: Shay Dallas Dictated Date: 12/02/2022 07:20 Assigned Physician: Shay Dallas Reviewed and Electronically Signed By: Shay Dallas Signed Date: 12/02/2022 07:48 Workstation ID: [id number] Transcribed By: Self Edit Transcribed Date: 12/02/2022 07:20 Results for orders placed during the hospital encounter of 12/01/22 MR Thoracic Spine wo and w Contrast Narrative EXAMINATION TYPE: MR THORACIC SPINE WO AND W CONTRAST, MR CERVICAL SPINE WO AND W CONTRAST DATE OF EXAM ORDERED: 12/02/2022 2:19 AM HISTORY: pathologic T7 compression fracture with retropulsion, post op fluid collection, likely seroma COMPARISON: CT 12/01/2022, MR 11/10/2022 TECHNIQUE: MR cervical and thoracic spine with and without contrast FINDINGS: THORACIC SPINE: At T7, there is an enhancing mass with associated pathologic compression fracture. There has been progression of vertebral body height loss since the prior examination from 11/10/2022, as well as increased retropulsion of bony fragments into the spinal canal at this level. Retropulsion of bony fragments results in fairly severe narrowing of the thecal sac at this level, as well as cord compressionand mildly increased cord signal intensity from the T6-7 through T7-8 levels. The extent of compression is improved compared to the prior preoperative examination from 11/10/2022. Posterior laminectomy has been performed at the T5 level. Smaller enhancing lesions are present in the T10 and T11 vertebral bodies. There has been resection of a mass previously noted at the T2 level, spinal fusion hardware from [id number] T4. A small amount of residual enhancing tissue in the left neural foramen at T2-3 may represent granulation tissue or residual tumor. Previously noted cord compression in this area has improved. In the posterior paraspinal soft tissues, there is a fluid collection along the midline and slightly right of midline extending from the cervicothoracic junction to the T8 level. This abuts the spinous processes and abuts the facet joints near the levels of the surgical hardware. This is also contiguous with the laminectomy defects at the T7 level and in the upper thoracic spine at the areas of fusion. No additional cord signal abnormality is identified. Postsurgical changes are present elsewhere in the paraspinal soft tissues. Trace bilateral pleural effusions are noted. CERVICAL SPINE: Posterior fusion has been performed from C7 through T4. Focal kyphosis is noted in the upper thoracic spine. Alignment is otherwise maintained. There is been resection of the previously noted mass atthe T2 level. There is some residual enhancing tissue within the left foramen at the T2-3 level, which could represent residual tumor or granulation tissue. No additional discrete lesion is identified. No abnormal cord signal intensity is identified in the cervical cord. The craniocervical junction is intact. Postsurgical changes are present in the posterior paraspinal soft tissues in the lower cervical andupper thoracic region. In the posterior paraspinal soft tissues near the midline into the right of midline, there is a peripherally enhancing fluid collection extending from the C5 level inferiorly into the upper thoracic region. This extends to the laminectomy defect at the lower cervical and upper thoracic spine. There is no significant associated mass effect on the thecal sac. Evaluation of the lower cervical spine is somewhat limited by susceptibility artifact from surgicalhardware. Multilevel mild to moderate degenerative changes are present in the lower cervical spine,grossly similar to the prior examination. Impression At the T7 level, there has been progression of a severe compression fracture and retropulsion of bony fragments into the spinal canal. Posterior decompression has been performed at this level. There is compression of the cord at this level with increased cord signal intensity as above. The overall extent of cord compression at this level is decreased compared to the prior postoperative examination from 11/10/2022. Resection of the previously noted mass at the T2 level. There is a small residual enhancing tissue in the left T2-T3 neural foramen, which may represent granulation tissue or an element of residual mass. Cord compression in this area has improved. Enhancing masses in the T10 and T11 vertebral bodies, not significantly changed. In the posterior paraspinal soft tissues, there is a large fluid collection at the midline and slightly right of midline, which extends from approximately the C5 level to the T8 level. There is some extension of the fluid collection to the laminectomy defects at T2 and T7. Some peripheral enhancement is present. This may represent a postoperative seroma, however, sterility is not confirmed. Clinical correlation is recommended. -------- FINAL REPORT -------- Dictated By: Shay Dallas Dictated Date: 12/02/2022 07:20 Assigned Physician: Shay Dallas Reviewed and Electronically Signed By: Shay Dallas Signed Date: 12/02/2022 07:48 Workstation ID: [id number] Transcribed By: Self Edit Transcribed Date: 12/02/2022 07:20 Labs Lab Results Component Value Date CREATININE 0.54 (L) 12/04/2022 BUN 15 12/04/2022 NA 137 12/04/2022 K 4.0 12/04/2022 CL 102 12/04/2022 CO2 27 12/04/2022 WBC 6.6 12/01/2022 WBC 100 12/01/2022 RBC 3.46 (L) 12/01/2022 HGB 10.5 (L) 12/01/2022 HCT 32.2 (L) 12/01/2022 PLT 167 12/01/2022 PT 13.5 12/02/2022 INR 1.0 12/02/2022 Lab Results Component Value Date BLOODCX No growth at 2 days 12/01/2022 BLOODCX No growth at 2 days 12/01/2022 * Sophia Miller RN - 12/04/2022 11:58 AM EST 12/04/22 1145 Discharge Planning Patient expects to be discharged to: Return to [facility], requested precert Attending states that patient will be ready over the weekend. Requested that facility escalate precert. Discharge packet started. Patient with questions about disability benefits. Referral sent to Vivian Campos for review and she will contact patient. 1615: Facility attempting to start precert but need PT order placed to have them see. This was completed. Sophia MONROE child adolescent psychiatrist [phone] or secure chat * Edyta Rick DO - 12/04/2022 9:56 AM EST Images from the original note were not included. Progress Note Chief Complaint/Visit Reason: My incision did not look good and they sent me back to the hospital. Impression: This patient is a 67-year-old male with past medical history of hypertension, hyperlipidemia, hypothyroidism, GERD, and recent diagnosis of multiple myeloma with T2 and T7 pathological fractures withepidural tumor and subsequent cord compression. He underwent thoracic decompression and removal of T2 and T7 epidural tumor by laminectomy, facetectomy, and foraminotomy as well as posterior thoracicfusion of C7-T4 by screw fixation on 11/11/[address] Tao. Patient has been doing therapy at [facility] in [place] and staff noted that his incision began looking erythematous, copious drainage. He was sent back to [facility] for evaluation by neurosurgery. To IR on 12/02 for drain placement and fluid sent for culture, no growth to date. Wound care team consulted and gave wound care recommendations. Patient remained nontoxic-no fevers, no leukocytosis, clinically very stable. Awaiting finalcultures then hopefully discharge back to rehab. Diagnoses: Postoperative wound infection versus seroma. Multiple myeloma with T2 and T7 pathological fractures with epidural tumor status post C7-T4 posterior thoracic fusion with fixation and removal of epidural tumor with laminectomy, facetectomy, and foraminotomy by Dr. Tao on 11/11/2022. 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 Hypertension. Hyperlipidemia. Hypothyroidism. GERD. Plan: Drain placed in IR putting out very little additional fluid. Blood and wound cultures negative to date, should be final by late today or early tomorrow. Continue Ancef for now. ET RN input appreciated-Chaptico removed on 12/03 and dressing change recommendations added. PT/OT won, patient would like to go back to [facility] in [place] where he was doing rehab. Changed Vanegas catheter in the ER. Home medications resumed. Diet as tolerated. DVT prophylaxis: SCDs Code Status: Full code. Disposition: EDOD 12/05 to rehab. Awaiting final culture data. Previously, patient lived alone, was working full-time in his job at the [employer] in [facility] prior to his diagnosis of multiple myeloma in October 2022. His brother lives in [facility] and is his POA. No spouse or children. Discussed with case management-patient needs help with disability paperwork. Edyta Rick, [facility] Subjective: Patient is again awake and alert, chatty and appropriate. Denies fevers or chills. Appetite has been good and he processes all information. No family or friends at bedside. Review of Systems Vitals and Physical exam: Patient Vitals for the past 24 hrs: BP Temp Temp src Pulse Resp SpO2 12/04/22 0700 123/77 36.6 C (97.8 F) Oral 88 16 96 % 12/04/22 0308 111/66 37.2 C (99 F) Oral 59 12 93 % 12/03/22 2248 96/58 37.2 C (98.9 F) Oral 81 14 93 % 12/03/222005 111/68 37.2 C (99 F) Oral 68 15 92 % 12/03/22 1604 100/61 36.9 C (98.4 F) Oral 96 -- 90 % 12/03/22 1116 103/63 36.7 C (98.1 F) Oral 69 -- 95 % Body mass index is 25.1 kg/m . Intake/Output Summary (Last 24 hours) at 12/04/2022 0956 Last data filed at 12/04/2022 0829 Gross per 24 hour Intake 10 ml Output 1582 ml Net -1572 ml Physical Exam Constitutional: General: He is not in acute distress. Appearance: He is normal weight. He is not ill-appearing or toxic-appearing. HENT: Head: Normocephalic and atraumatic. Mouth/Throat: Mouth: Mucous membranes are moist. Eyes: Extraocular Movements: Extraocular movements intact. Neck: Comments: Patient has a midline incision from his mid neck down to the thoracic region, erythematous but improved. Chaptico have been removed. Drain remains in place but has put out very little additional fluid from yesterday. Cardiovascular: Rate and Rhythm: Normal rate and regular rhythm. Heart sounds: No murmur heard. Pulmonary: Effort: Pulmonary effort is normal. Breath sounds: Normal breath sounds. No wheezing or rhonchi. Abdominal: General: Bowel sounds are normal. Palpations: Abdomen is soft. Tenderness: There is no abdominal tenderness. Musculoskeletal: Right lower leg: No edema. Left lower leg: No edema. Skin: General: Skin is dry. Coloration: Skin is pale. Neurological: Mental Status: He is alert and oriented to person, place, and time. Comments: Cognitively intact, excellent historian. Psychiatric: Thought Content: Thought content normal. Recent Lab Results: Results from last 7 days Lab Units 12/04/22 0434 12/03/22 0450 12/01/22 2044 SODIUM mmol/L 137 137 135* POTASSIUM mmol/L 4.0 3.8 3.5* CHLORIDE mmol/L 102 102 99 CO2 mmol/L 27 28 28 BUN mg/dL 15 17 18 CREATININE mg/dL 0.54* 0.72 0.54* Results from last 7 days Lab Units 12/01/222043 WBC AUTO K/mcL 6.6 TOTAL COUNTED 100 HEMOGLOBIN g/dL 10.5* HEMATOCRIT % 32.2* PLATELETS K/mcL 167 MCV FL 93.1 Recent Imaging Findings: CT Guided Perc Drain Plcmnt Narrative: CT guided abscess drain placement INDICATION: Fluid collection postoperatively STAFF: Palmer DEE FLUOROSCOPY TIME: None. COMPLICATIONS: None EBL: <5 ml MEDICATIONS: 2% lidocaine local. PROCEDURE: Time-out was performed to confirm the correct patient, procedure, and site. The patient was placed prone. A site overlying the back was marked prepped and draped in sterile fashion. Skin prep was allowed to fully dry. The skin was anesthetized with LIDOCAINE. Under CT guidance a 12-Austrian pigtail drainage catheter was placed within the collection. 10 mL of serosanguineous fluid was aspirated and sent for analysis. The catheter was sutured to the skin and then attached togravity drainage. PATIENT DISPOSITION: Discharged from the department in stable condition. Impression: Technically successful CT-guided 12-Austrian drain placement within postoperative fluid collection in the upper back -------- FINAL REPORT -------- Dictated By: Louie Chakraborty Dictated Date: 12/02/2022 14:39 Assigned Physician: Louie Chakraborty Reviewed and Electronically Signed By: Louie Chakraborty Signed Date: 12/02/2022 14:41 Workstation ID: [id number] Transcribed By: Self Edit Transcribed Date: 12/02/2022 14:39 MR Thoracic Spine wo and w Contrast Narrative: EXAMINATION TYPE: MR THORACIC SPINE WO AND W CONTRAST, MR CERVICAL SPINE WO AND W CONTRAST DATE OF EXAM ORDERED: 12/02/2022 2:19 AM HISTORY: pathologic T7 compression fracture with retropulsion, post op fluid collection, likely seroma COMPARISON: CT 12/01/2022, MR 11/10/2022 TECHNIQUE: MR cervical and thoracic spine with and without contrast FINDINGS: THORACIC SPINE: At T7, there is an enhancing mass with associated pathologic compression fracture. There has been progression of vertebral body height loss since the prior examination from 11/10/2022, as well as increased retropulsion of bony fragments into the spinal canal at this level. Retropulsion of bony fragments results in fairly severe narrowing of the thecal sac at this level, as well as cord compressionand mildly increased cord signal intensity from the T6-7 through T7-8 levels. The extent of compression is improved compared to the prior preoperative examination from 11/10/2022. Posterior laminectomy has been performed at the T5 level. Smaller enhancing lesions are present in the T10 and T11 vertebral bodies. There has been resection of a mass previously noted at the T2 level, spinal fusion hardware from [id number] T4. A small amount of residual enhancing tissue in the left neural foramen at T2-3 may represent granulation tissue or residual tumor. Previously noted cord compression in this area has improved. In the posterior paraspinal soft tissues, there is a fluid collection along the midline and slightly right of midline extending from the cervicothoracic junction to the T8 level. This abuts the spinous processes and abuts the facet joints near the levels of the surgical hardware. This is also contiguous with the laminectomy defects at the T7 level and in the upper thoracic spine at the areas of fusion. No additional cord signal abnormality is identified. Postsurgical changes are present elsewhere in the paraspinal soft tissues. Trace bilateral pleural effusions are noted. CERVICAL SPINE: Posterior fusion has been performed from C7 through T4. Focal kyphosis is noted in the upper thoracic spine. Alignment is otherwise maintained. There is been resection of the previously noted mass atthe T2 level. There is some residual enhancing tissue within the left foramen at the T2-3 level, which could represent residual tumor or granulation tissue. No additional discrete lesion is identified. No abnormal cord signal intensity is identified in the cervical cord. The craniocervical junction is intact. Postsurgical changes are present in the posterior paraspinal soft tissues in the lower cervical andupper thoracic region. In the posterior paraspinal soft tissues near the midline into the right of midline, there is a peripherally enhancing fluid collection extending from the C5 level inferiorly into the upper thoracic region. This extends to the laminectomy defect at the lower cervical and upper thoracic spine. There is no significant associated mass effect on the thecal sac. Evaluation of the lower cervical spine is somewhat limited by susceptibility artifact from surgicalhardware. Multilevel mild to moderate degenerative changes are present in the lower cervical spine,grossly similar to the prior examination. Impression: At the T7 level, there has been progression of a severe compression fracture and retropulsion of bony fragments into the spinal canal. Posterior decompression has been performed at this level. There is compression of the cord at this level with increased cord signal intensity as above. The overall extent of cord compression at this level is decreased compared to the prior postoperative examination from 11/10/2022. Resection of the previously noted mass at the T2 level. There is a small residual enhancing tissue in the left T2-T3 neural foramen, which may represent granulation tissue or an element of residual mass. Cord compression in this area has improved. Enhancing masses in the T10 and T11 vertebral bodies, not significantly changed. In the posterior paraspinal soft tissues, there is a large fluid collection at the midline and slightly right of midline, which extends from approximately the C5 level to the T8 level. There is some extension of the fluid collection to the laminectomy defects at T2 and T7. Some peripheral enhancement is present. This may represent a postoperative seroma, however, sterility is not confirmed. Clinical correlation is recommended. -------- FINAL REPORT -------- Dictated By: Shay Dallas Dictated Date: 12/02/2022 07:20 Assigned Physician: Shay Dallas Reviewed and Electronically Signed By: Shay Dallas Signed Date: 12/02/2022 07:48 Workstation ID: [id number] Transcribed By: Self Edit Transcribed Date: 12/02/2022 07:20 MR Cervical Spine wo and w Contrast Narrative: EXAMINATION TYPE: MR THORACIC SPINE WO AND W CONTRAST, MR CERVICAL SPINE WO AND W CONTRAST DATE OF EXAM ORDERED: 12/02/2022 2:19 AM HISTORY: pathologic T7 compression fracture with retropulsion, post op fluid collection, likely seroma COMPARISON: CT 12/01/2022, MR 11/10/2022 TECHNIQUE: MR cervical and thoracic spine with and without contrast FINDINGS: THORACIC SPINE: At T7, there is an enhancing mass with associated pathologic compression fracture. There has been progression of vertebral body height loss since the prior examination from 11/10/2022, as well as increased retropulsion of bony fragments into the spinal canal at this level. Retropulsion of bony fragments results in fairly severe narrowing of the thecal sac at this level, as well as cord compressionand mildly increased cord signal intensity from the T6-7 through T7-8 levels. The extent of compression is improved compared to the prior preoperative examination from 11/10/2022. Posterior laminectomy has been performed at the T5 level. Smaller enhancing lesions are present in the T10 and T11 vertebral bodies. There has been resection of a mass previously noted at the T2 level, spinal fusion hardware from [id number] T4. A small amount of residual enhancing tissue in the left neural foramen at T2-3 may represent granulation tissue or residual tumor. Previously noted cord compression in this area has improved. In the posterior paraspinal soft tissues, there is a fluid collection along the midline and slightly right of midline extending from the cervicothoracic junction to the T8 level. This abuts the spinous processes and abuts the facet joints near the levels of the surgical hardware. This is also contiguous with the laminectomy defects at the T7 level and in the upper thoracic spine at the areas of fusion. No additional cord signal abnormality is identified. Postsurgical changes are present elsewhere in the paraspinal soft tissues. Trace bilateral pleural effusions are noted. CERVICAL SPINE: Posterior fusion has been performed from C7 through T4. Focal kyphosis is noted in the upper thoracic spine. Alignment is otherwise maintained. There is been resection of the previously noted mass atthe T2 level. There is some residual enhancing tissue within the left foramen at the T2-3 level, which could represent residual tumor or granulation tissue. No additional discrete lesion is identified. No abnormal cord signal intensity is identified in the cervical cord. The craniocervical junction is intact. Postsurgical changes are present in the posterior paraspinal soft tissues in the lower cervical andupper thoracic region. In the posterior paraspinal soft tissues near the midline into the right of midline, there is a peripherally enhancing fluid collection extending from the C5 level inferiorly into the upper thoracic region. This extends to the laminectomy defect at the lower cervical and upper thoracic spine. There is no significant associated mass effect on the thecal sac. Evaluation of the lower cervical spine is somewhat limited by susceptibility artifact from surgicalhardware. Multilevel mild to moderate degenerative changes are present in the lower cervical spine,grossly similar to the prior examination. Impression: At the T7 level, there has been progression of a severe compression fracture and retropulsion of bony fragments into the spinal canal. Posterior decompression has been performed at this level. There is compression of the cord at this level with increased cord signal intensity as above. The overall extent of cord compression at this level is decreased compared to the prior postoperative examination from 11/10/2022. Resection of the previously noted mass at the T2 level. There is a small residual enhancing tissue in the left T2-T3 neural foramen, which may represent granulation tissue or an element of residual mass. Cord compression in this area has improved. Enhancing masses in the T10 and T11 vertebral bodies, not significantly changed. In the posterior paraspinal soft tissues, there is a large fluid collection at the midline and slightly right of midline, which extends from approximately the C5 level to the T8 level. There is some extension of the fluid collection to the laminectomy defects at T2 and T7. Some peripheral enhancement is present. This may represent a postoperative seroma, however, sterility is not confirmed. Clinical correlation is recommended. -------- FINAL REPORT -------- Dictated By: Shay Dallas Dictated Date: 12/02/2022 07:20 Assigned Physician: Shay Dallas Reviewed and Electronically Signed By: Shay Dallas Signed Date: 12/02/2022 07:48 Workstation ID: [id number] Transcribed By: Self Edit Transcribed Date: 12/02/2022 07:20 CT Cervical Spine w Contrast Narrative: EXAMINATION TYPE: CT CERVICAL SPINE W CONTRAST, CT THORACIC SPINE W CONTRAST DATE OF EXAM ORDERED: 12/01/2022 10:12 PM HISTORY: post-op infection concern, recent thoracic lower cervical surgery on 11/11. Drainage from surgical wound, CONTRAST USED: 100 mL [id number] COMPARISON: CT thoracic spine 11/11/2022, MRI cervical and thoracic spine 11/10/2022 TECHNIQUE: Contiguous axial, coronal and sagittal images were obtained through the cervical and thoracic spine following intravenous contrast administration. FINDINGS: CT CERVICAL SPINE: Skull base is intact. Atlantoaxial joint is unremarkable. There is convex left scoliosis noted. The vertebrae are otherwise normally aligned. No acute cervical fracture is seen. Disc spaces well-preserved from C2-3 through C4-5. At C5-6 again noted is bulging disc and osteophyte complex without significant spinal stenosis. At C6-7 there is also mild bulging the disc with no significant spinal stenosis. Again noted are changes of posterior instrumented fixation with spinal rods and pedicle screws in the C7 and T1 vertebrae as well as the T3 and T4 vertebrae without acute complication. Destructive changes and severe compression of the T2 vertebral body again noted. Surgical drain is been removed and overlying skin deborah of the lower cervical and thoracic region remain in place. There has been interval development of a large fluid collection in the posterior soft tissues overlying the surgicalbed measuring approximately 7 cm in cephalocaudal length maximum transverse diameter of 6.2 cm AP by 11.2 cm transverse on image one series 8 overlying the lower cervical and upper thoracic vertebralbodies, this collection does not communicate with the thecal sac and is likely a large postoperative seroma, it contains no air bubbles to suggest an abscess which is less likely. There is no associated wall enhancement of this fluid collection. Surrounding subcutaneous edema is noted. CT THORACIC SPINE: Severe compression pathologic fracture deformity of the T7 vertebral body has progressed since the prior exam now with vertebral plana deformity. Extensive destructive changes of this vertebra extending into the left-sided pedicle are noted. No obvious enhancing tumor noted within the spinal canal.There is 5 mm of retropulsion of the posterior inferior corner of this fractured vertebral body into the spinal canal noted narrowing of the midline thecal sac diameter to 6 mm with some mild compression of the right thoracic spinal cord not seen on the prior exam. It is difficult to estimate extent of any epidural tumor that may be present at this level. Remaining vertebrae demonstrate no compression fractures, with diffuse marrow abnormalities consistent with metastatic disease.. No other significant spinal stenosis is seen. Impression: 1. Interval progression of severe pathologic fracture of the T7 vertebral body now withvertebral plana, extensive destructive changes including the left-sided pedicle. Interval development of 5 mm of retropulsion of the bone fragment into the spinal canal to the right of midline now with mild compression of the right thoracic spinal cord not seen on the prior exam with 6 mm midline AP thecal sac diameter. 2. Postoperative changes of posterior instrumented fixation from C7 to T4 as noted on 11/11/2022 bridging pathologic fracture at the T2 level. New superficial fluid collection in the posterior soft tissues overlying the surgical bed without communication with the thecal sac likely a postoperative se leonard measuring 6 x 11 x 7 cm, this is unlikely to represent an abscess. CRITICAL DOCUMENT ONLY finding communicated directly to Marcello Fisher DO and documented in the [employer] system on 12/02/2022 12:31 AM, Message ID [id number]. -------- FINAL REPORT -------- Dictated By: Ricky Walters Dictated Date: 12/02/2022 00:09 Assigned Physician: Ricky Walters Reviewed and Electronically Signed By: Ricky Walters Signed Date: 12/02/2022 00:32 Workstation ID: [id number] Transcribed By: Self Edit Transcribed Date: 12/02/2022 00:09 CT Thoracic Spine w Contrast Narrative: EXAMINATION TYPE: CT CERVICAL SPINE W CONTRAST, CT THORACIC SPINE W CONTRAST DATE OF EXAM ORDERED: 12/01/2022 10:12 PM HISTORY: post-op infection concern, recent thoracic lower cervical surgery on 11/11. Drainage from surgical wound, CONTRAST USED: 100 mL ISOVUE-300 COMPARISON: CT thoracic spine 11/11/2022, MRI cervical and thoracic spine 11/10/2022 TECHNIQUE: Contiguous axial, coronal and sagittal images were obtained through the cervical and thoracic spine following intravenous contrast administration. FINDINGS: CT CERVICAL SPINE: Skull base is intact. Atlantoaxial joint is unremarkable. There is convex left scoliosis noted. The vertebrae are otherwise normally aligned. No acute cervical fracture is seen. Disc spaces well-preserved from C2-3 through C4-5. At C5-6 again noted is bulging disc and osteophyte complex without significant spinal stenosis. At C6-7 there is also mild bulging the disc with no significant spinal stenosis. Again noted are changes of posterior instrumented fixation with spinal rods and pedicle screws in the C7 and T1 vertebrae as well as the T3 and T4 vertebrae without acute complication. Destructive changes and severe compression of the T2 vertebral body again noted. Surgical drain is been removed and overlying skin deborah of the lower cervical and thoracic region remain in place. There has been interval development of a large fluid collection in the posterior soft tissues overlying the surgicalbed measuring approximately 7 cm in cephalocaudal length maximum transverse diameter of 6.2 cm AP by 11.2 cm transverse on image one series 8 overlying the lower cervical and upper thoracic vertebralbodies, this collection does not communicate with the thecal sac and is likely a large postoperative seroma, it contains no air bubbles to suggest an abscess which is less likely. There is no associated wall enhancement of this fluid collection. Surrounding subcutaneous edema is noted. CT THORACIC SPINE: Severe compression pathologic fracture deformity of the T7 vertebral body has progressed since the prior exam now with vertebral plana deformity. Extensive destructive changes of this vertebra extending into the left-sided pedicle are noted. No obvious enhancing tumor noted within the spinal canal.There is 5 mm of retropulsion of the posterior inferior corner of this fractured vertebral body into the spinal canal noted narrowing of the midline thecal sac diameter to 6 mm with some mild compression of the right thoracic spinal cord not seen on the prior exam. It is difficult to estimate extent of any epidural tumor that may be present at this level. Remaining vertebrae demonstrate no compression fractures, with diffuse marrow abnormalities consistent with metastatic disease.. No other significant spinal stenosis is seen. Impression: 1. Interval progression of severe pathologic fracture of the T7 vertebral body now withvertebral plana, extensive destructive changes including the left-sided pedicle. Interval development of 5 mm of retropulsion of the bone fragment into the spinal canal to the right of midline now with mild compression of the right thoracic spinal cord not seen on the prior exam with 6 mm midline AP thecal sac diameter. 2. Postoperative changes of posterior instrumented fixation from C7 to T4 as noted on 11/11/2022 bridging pathologic fracture at the T2 level. New superficial fluid collection in the posterior soft tissues overlying the surgical bed without communication with the thecal sac likely a postoperative se leonard measuring 6 x 11 x 7 cm, this is unlikely to represent an abscess. CRITICAL DOCUMENT ONLY finding communicated directly to Marcello Fisher DO and documented in the [employer] system on 12/02/2022 12:31 AM, Message ID [id number]. -------- FINAL REPORT -------- Dictated By: Ricky Walters Dictated Date: 12/02/2022 00:09 Assigned Physician: Ricky Walters Reviewed and Electronically Signed By: Ricky Walters Signed Date: 12/02/2022 00:32 Workstation ID: [id number] Transcribed By: Self Edit Transcribed Date: 12/02/2022 00:09 Allergies: No Known Allergies * Edyta Rick DO - 12/03/2022 2:04 PM EST Images from the original note were not included. Progress Note Chief Complaint/Visit Reason: My incision did not look good and they sent me back to the hospital. Impression: This patient is a 67-year-old male with past medical history of hypertension, hyperlipidemia, hypothyroidism, GERD, and recent diagnosis of multiple myeloma with T2 and T7 pathological fractures withepidural tumor and subsequent cord compression. He underwent thoracic decompression and removal of T2 and T7 epidural tumor by laminectomy, facetectomy, and foraminotomy as well as posterior thoracicfusion of C7-T4 by screw fixation on 11/11/[address] Tao. Patient has been doing therapy at [facility] in [place] and staff noted that his incision began looking erythematous, copious drainage. He was sent back to [facility] for evaluation by neurosurgery. To IR on 12/02 for drain placement and fluid sent for culture. Wound care team consulted. Diagnoses: Possible postoperative wound infection versus seroma. Multiple myeloma with T2 and T7 pathological fractures with epidural tumor status post C7-T4 posterior thoracic fusion with fixation and removal of epidural tumor with laminectomy, facetectomy, and foraminotomy by Dr. Tao on 11/11/2022. 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 Hypertension. Hyperlipidemia. Hypothyroidism. GERD. Plan: Patient went to IR yesterday, drain placed in the seroma, fluid sent for culture. Continue Ancef for now. Follow-up blood cultures. Doubt they will be positive, afebrile, no leukocytosis. Pain and symptom management. ET RN consult, wound may be appropriate for Prevena wound VAC. It also appears that deborah can be removed, they are offering very little at this point. PT/OT eval, patient would like to go back to [facility] in [place] where he was doing rehab. Changed Vanegas catheter in the ER. Home medications resumed. Diet as tolerated. DVT prophylaxis: SCDs Code Status: Full code. Disposition: To be determined. Patient lives alone, was working full-time in his job at the [employer] in [employer] prior to his diagnosis of multiple myeloma in October 2022. His brother lives in [facility] and is his POA. No spouse or children. Discussed with case management-patient needs help with disability paperwork. Edyta Rick, DO [facility] Subjective: Patient is awake and alert, no fevers, good appetite, clinically very stable. He is very stressed about getting his disability paperwork filled out. I discussed with case management and they will follow-up to get it printed for him. Review of Systems Vitals and Physical exam: Patient Vitals for the past 24 hrs: BP Temp Temp src Pulse Resp SpO2 12/03/22 1116 103/63 36.7 C (98.1 F) Oral 69 -- 95 % 12/03/22 0751 120/72 37.3 C (99.1 F) Oral 73 16 93 % 12/03/22 0028 106/68 37.1 C (98.8 F) Oral 71 -- 94 % 12/02/222052 98/64 37.1 C (98.8 F) Oral 73 -- 97 % 12/02/222026 111/73 -- -- 87 16 -- 12/02/222018 -- -- -- -- -- 98 % 12/02/22 1900 124/72 -- -- 77 -- 94 % 12/02/221705 113/64 -- -- -- -- -- 12/02/221702 -- -- -- 64 16 92 % 12/02/22 1430 116/70 -- -- 69 16 94 % Body mass index is 25.1 kg/m . Intake/Output Summary (Last 24 hours) at 12/03/2022 1404 Last data filed at 12/03/2022 0518 Gross per 24 hour Intake 720 ml Output 1575 ml Net -855 ml Physical Exam Constitutional: General: He is not in acute distress. Appearance: He is normal weight. He is not ill-appearing or toxic-appearing. HENT: Head: Normocephalic and atraumatic. Mouth/Throat: Mouth: Mucous membranes are moist. Eyes: Extraocular Movements: Extraocular movements intact. Neck: Comments: Patient has a midline incision from his mid neck down to the thoracic region, erythematous, deborah are still in place and there is a slight gape to the wound for the majority of the length. Now there is a drain in place draining serosanguineous fluid. Cardiovascular: Rate and Rhythm: Normal rate and regular rhythm. Heart sounds: No murmur heard. Pulmonary: Effort: Pulmonary effort is normal. Breath sounds: Normal breath sounds. No wheezing or rhonchi. Abdominal: General: Bowel sounds are normal. Palpations: Abdomen is soft. Tenderness: There is no abdominal tenderness. Musculoskeletal: Right lower leg: No edema. Left lower leg: No edema. Skin: General: Skin is dry. Coloration: Skin is pale. Neurological: Mental Status: He is alert and oriented to person, place, and time. Comments: Cognitively intact, excellent historian. Psychiatric: Thought Content: Thought content normal. Recent Lab Results: Results from last 7 days Lab Units 12/03/22 0450 12/01/22 2044 SODIUM mmol/L 137 135* POTASSIUM mmol/L 3.8 3.5* CHLORIDE mmol/L 102 99 CO2 mmol/L 28 28 BUN mg/dL 17 18 CREATININE mg/dL 0.72 0.54* Results from last 7 days Lab Units 12/01/22 2044 WBC AUTO K/mcL 6.6 TOTAL COUNTED 100 HEMOGLOBIN g/dL 10.5* HEMATOCRIT % 32.2* PLATELETS K/mcL 167 MCV FL 93.1 Recent Imaging Findings: CT Guided Perc Drain Plcmnt Narrative: CT guided abscess drain placement INDICATION: Fluid collection postoperatively STAFF: Palmer DEE FLUOROSCOPY TIME: None. COMPLICATIONS: None EBL: <5 ml MEDICATIONS: 2% lidocaine local. PROCEDURE: Time-out was performed to confirm the correct patient, procedure, and site. The patient was placed prone. A site overlying the back was marked prepped and draped in sterile fashion. Skin prep was allowed to fully dry. The skin was anesthetized with LIDOCAINE. Under CT guidance a 12-Austrian pigtail drainage catheter was placed within the collection. 10 mL of serosanguineous fluid was aspirated and sent for analysis. The catheter was sutured to the skin and then attached togravity drainage. PATIENT DISPOSITION: Discharged from the department in stable condition. Impression: Technically successful CT-guided 12-Austrian drain placement within postoperative fluid collection in the upper back -------- FINAL REPORT -------- Dictated By: Louie Chakraborty Dictated Date: 12/02/2022 14:39 Assigned Physician: Louie Chakraborty Reviewed and Electronically Signed By: Louie Chakraborty Signed Date: 12/02/2022 14:41 Workstation ID: [id number] Transcribed By: Self Edit Transcribed Date: 12/02/2022 14:39 MR Thoracic Spine wo and w Contrast Narrative: EXAMINATION TYPE: MR THORACIC SPINE WO AND W CONTRAST, MR CERVICAL SPINE WO AND W CONTRAST DATE OF EXAM ORDERED: 12/02/2022 2:19 AM HISTORY: pathologic T7 compression fracture with retropulsion, post op fluid collection, likely seroma COMPARISON: CT 12/01/2022, MR 11/10/2022 TECHNIQUE: MR cervical and thoracic spine with and without contrast FINDINGS: THORACIC SPINE: At T7, there is an enhancing mass with associated pathologic compression fracture. There has been progression of vertebral body height loss since the prior examination from 11/10/2022, as well as increased retropulsion of bony fragments into the spinal canal at this level. Retropulsion of bony fragments results in fairly severe narrowing of the thecal sac at this level, as well as cord compressionand mildly increased cord signal intensity from the T6-7 through T7-8 levels. The extent of compression is improved compared to the prior preoperative examination from 11/10/2022. Posterior laminectomy has been performed at the T5 level. Smaller enhancing lesions are present in the T10 and T11 vertebral bodies. There has been resection of a mass previously noted at the T2 level, spinal fusion hardware from [id number] T4. A small amount of residual enhancing tissue in the left neural foramen at T2-3 may represent granulation tissue or residual tumor. Previously noted cord compression in this area has improved. In the posterior paraspinal soft tissues, there is a fluid collection along the midline and slightly right of midline extending from the cervicothoracic junction to the T8 level. This abuts the spinous processes and abuts the facet joints near the levels of the surgical hardware. This is also contiguous with the laminectomy defects at the T7 level and in the upper thoracic spine at the areas of fusion. No additional cord signal abnormality is identified. Postsurgical changes are present elsewhere in the paraspinal soft tissues. Trace bilateral pleural effusions are noted. CERVICAL SPINE: Posterior fusion has been performed from C7 through T4. Focal kyphosis is noted in the upper thoracic spine. Alignment is otherwise maintained. There is been resection of the previously noted mass atthe T2 level. There is some residual enhancing tissue within the left foramen at the T2-3 level, which could represent residual tumor or granulation tissue. No additional discrete lesion is identified. No abnormal cord signal intensity is identified in the cervical cord. The craniocervical junction is intact. Postsurgical changes are present in the posterior paraspinal soft tissues in the lower cervical andupper thoracic region. In the posterior paraspinal soft tissues near the midline into the right of midline, there is a peripherally enhancing fluid collection extending from the C5 level inferiorly into the upper thoracic region. This extends to the laminectomy defect at the lower cervical and upper thoracic spine. There is no significant associated mass effect on the thecal sac. Evaluation of the lower cervical spine is somewhat limited by susceptibility artifact from surgicalhardware. Multilevel mild to moderate degenerative changes are present in the lower cervical spine,grossly similar to the prior examination. Impression: At the T7 level, there has been progression of a severe compression fracture and retropulsion of bony fragments into the spinal canal. Posterior decompression has been performed at this level. There is compression of the cord at this level with increased cord signal intensity as above. The overall extent of cord compression at this level is decreased compared to the prior postoperative examination from 11/10/2022. Resection of the previously noted mass at the T2 level. There is a small residual enhancing tissue in the left T2-T3 neural foramen, which may represent granulation tissue or an element of residual mass. Cord compression in this area has improved. Enhancing masses in the T10 and T11 vertebral bodies, not significantly changed. In the posterior paraspinal soft tissues, there is a large fluid collection at the midline and slightly right of midline, which extends from approximately the C5 level to the T8 level. There is some extension of the fluid collection to the laminectomy defects at T2 and T7. Some peripheral enhancement is present. This may represent a postoperative seroma, however, sterility is not confirmed. Clinical correlation is recommended. -------- FINAL REPORT -------- Dictated By: Shay Dallas Dictated Date: 12/02/2022 07:20 Assigned Physician: Shay Dallas Reviewed and Electronically Signed By: Shay Dallas Signed Date: 12/02/2022 07:48 Workstation ID: [id number] Transcribed By: Self Edit Transcribed Date: 12/02/2022 07:20 MR Cervical Spine wo and w Contrast Narrative: EXAMINATION TYPE: MR THORACIC SPINE WO AND W CONTRAST, MR CERVICAL SPINE WO AND W CONTRAST DATE OF EXAM ORDERED: 12/02/2022 2:19 AM HISTORY: pathologic T7 compression fracture with retropulsion, post op fluid collection, likely seroma COMPARISON: CT 12/01/2022, MR 11/10/2022 TECHNIQUE: MR cervical and thoracic spine with and without contrast FINDINGS: THORACIC SPINE: At T7, there is an enhancing mass with associated pathologic compression fracture. There has been progression of vertebral body height loss since the prior examination from 11/10/2022, as well as increased retropulsion of bony fragments into the spinal canal at this level. Retropulsion of bony fragments results in fairly severe narrowing of the thecal sac at this level, as well as cord compressionand mildly increased cord signal intensity from the T6-7 through T7-8 levels. The extent of compression is improved compared to the prior preoperative examination from 11/10/2022. Posterior laminectomy has been performed at the T5 level. Smaller enhancing lesions are present in the T10 and T11 vertebral bodies. There has been resection of a mass previously noted at the T2 level, spinal fusion hardware from [id number] T4. A small amount of residual enhancing tissue in the left neural foramen at T2-3 may represent granulation tissue or residual tumor. Previously noted cord compression in this area has improved. In the posterior paraspinal soft tissues, there is a fluid collection along the midline and slightly right of midline extending from the cervicothoracic junction to the T8 level. This abuts the spinous processes and abuts the facet joints near the levels of the surgical hardware. This is also contiguous with the laminectomy defects at the T7 level and in the upper thoracic spine at the areas of fusion. No additional cord signal abnormality is identified. Postsurgical changes are present elsewhere in the paraspinal soft tissues. Trace bilateral pleural effusions are noted. CERVICAL SPINE: Posterior fusion has been performed from C7 through T4. Focal kyphosis is noted in the upper thoracic spine. Alignment is otherwise maintained. There is been resection of the previously noted mass atthe T2 level. There is some residual enhancing tissue within the left foramen at the T2-3 level, which could represent residual tumor or granulation tissue. No additional discrete lesion is identified. No abnormal cord signal intensity is identified in the cervical cord. The craniocervical junction is intact. Postsurgical changes are present in the posterior paraspinal soft tissues in the lower cervical andupper thoracic region. In the posterior paraspinal soft tissues near the midline into the right of midline, there is a peripherally enhancing fluid collection extending from the C5 level inferiorly into the upper thoracic region. This extends to the laminectomy defect at the lower cervical and upper thoracic spine. There is no significant associated mass effect on the thecal sac. Evaluation of the lower cervical spine is somewhat limited by susceptibility artifact from surgicalhardware. Multilevel mild to moderate degenerative changes are present in the lower cervical spine,grossly similar to the prior examination. Impression: At the T7 level, there has been progression of a severe compression fracture and retropulsion of bony fragments into the spinal canal. Posterior decompression has been performed at this level. There is compression of the cord at this level with increased cord signal intensity as above. The overall extent of cord compression at this level is decreased compared to the prior postoperative examination from 11/10/2022. Resection of the previously noted mass at the T2 level. There is a small residual enhancing tissue in the left T2-T3 neural foramen, which may represent granulation tissue or an element of residual mass. Cord compression in this area has improved. Enhancing masses in the T10 and T11 vertebral bodies, not significantly changed. In the posterior paraspinal soft tissues, there is a large fluid collection at the midline and slightly right of midline, which extends from approximately the C5 level to the T8 level. There is some extension of the fluid collection to the laminectomy defects at T2 and T7. Some peripheral enhancement is present. This may represent a postoperative seroma, however, sterility is not confirmed. Clinical correlation is recommended. -------- FINAL REPORT -------- Dictated By: Shay Dallas Dictated Date: 12/02/2022 07:20 Assigned Physician: Shay Dallas Reviewed and Electronically Signed By: Shay Dallas Signed Date: 12/02/2022 07:48 Workstation ID: [id number] Transcribed By: Self Edit Transcribed Date: 12/02/2022 07:20 CT Cervical Spine w Contrast Narrative: EXAMINATION TYPE: CT CERVICAL SPINE W CONTRAST, CT THORACIC SPINE W CONTRAST DATE OF EXAM ORDERED: 12/01/2022 10:12 PM HISTORY: post-op infection concern, recent thoracic lower cervical surgery on 11/11. Drainage from surgical wound, CONTRAST USED: 100 mL [id number] COMPARISON: CT thoracic spine 11/11/2022, MRI cervical and thoracic spine 11/10/2022 TECHNIQUE: Contiguous axial, coronal and sagittal images were obtained through the cervical and thoracic spine following intravenous contrast administration. FINDINGS: CT CERVICAL SPINE: Skull base is intact. Atlantoaxial joint is unremarkable. There is convex left scoliosis noted. The vertebrae are otherwise normally aligned. No acute cervical fracture is seen. Disc spaces well-preserved from C2-3 through C4-5. At C5-6 again noted is bulging disc and osteophyte complex without significant spinal stenosis. At C6-7 there is also mild bulging the disc with no significant spinal stenosis. Again noted are changes of posterior instrumented fixation with spinal rods and pedicle screws in the C7 and T1 vertebrae as well as the T3 and T4 vertebrae without acute complication. Destructive changes and severe compression of the T2 vertebral body again noted. Surgical drain is been removed and overlying skin deborah of the lower cervical and thoracic region remain in place. There has been interval development of a large fluid collection in the posterior soft tissues overlying the surgicalbed measuring approximately 7 cm in cephalocaudal length maximum transverse diameter of 6.2 cm AP by 11.2 cm transverse on image one series 8 overlying the lower cervical and upper thoracic vertebralbodies, this collection does not communicate with the thecal sac and is likely a large postoperative seroma, it contains no air bubbles to suggest an abscess which is less likely. There is no associated wall enhancement of this fluid collection. Surrounding subcutaneous edema is noted. CT THORACIC SPINE: Severe compression pathologic fracture deformity of the T7 vertebral body has progressed since the prior exam now with vertebral plana deformity. Extensive destructive changes of this vertebra extending into the left-sided pedicle are noted. No obvious enhancing tumor noted within the spinal canal.There is 5 mm of retropulsion of the posterior inferior corner of this fractured vertebral body into the spinal canal noted narrowing of the midline thecal sac diameter to 6 mm with some mild compression of the right thoracic spinal cord not seen on the prior exam. It is difficult to estimate extent of any epidural tumor that may be present at this level. Remaining vertebrae demonstrate no compression fractures, with diffuse marrow abnormalities consistent with metastatic disease.. No other significant spinal stenosis is seen. Impression: 1. Interval progression of severe pathologic fracture of the T7 vertebral body now withvertebral plana, extensive destructive changes including the left-sided pedicle. Interval development of 5 mm of retropulsion of the bone fragment into the spinal canal to the right of midline now with mild compression of the right thoracic spinal cord not seen on the prior exam with 6 mm midline AP thecal sac diameter. 2. Postoperative changes of posterior instrumented fixation from C7 to T4 as noted on 11/11/2022 bridging pathologic fracture at the T2 level. New superficial fluid collection in the posterior soft tissues overlying the surgical bed without communication with the thecal sac likely a postoperative se leonard measuring 6 x 11 x 7 cm, this is unlikely to represent an abscess. CRITICAL DOCUMENT ONLY finding communicated directly to Marcello Fisher DO and documented in the [employer] system on 12/02/2022 12:31 AM, Message ID [id number]. -------- FINAL REPORT -------- Dictated By: Ricky Walters Dictated Date: 12/02/2022 00:09 Assigned Physician: Ricky Walters Reviewed and Electronically Signed By: Ricky Walters Signed Date: 12/02/2022 00:32 Workstation ID: [id number] Transcribed By: Self Edit Transcribed Date: 12/02/2022 00:09 CT Thoracic Spine w Contrast Narrative: EXAMINATION TYPE: CT CERVICAL SPINE W CONTRAST, CT THORACIC SPINE W CONTRAST DATE OF EXAM ORDERED: 12/01/2022 10:12 PM HISTORY: post-op infection concern, recent thoracic lower cervical surgery on 11/11. Drainage from surgical wound, CONTRAST USED: 100 mL ISOVUE-300 COMPARISON: CT thoracic spine 11/11/2022, MRI cervical and thoracic spine 11/10/2022 TECHNIQUE: Contiguous axial, coronal and sagittal images were obtained through the cervical and thoracic spine following intravenous contrast administration. FINDINGS: CT CERVICAL SPINE: Skull base is intact. Atlantoaxial joint is unremarkable. There is convex left scoliosis noted. The vertebrae are otherwise normally aligned. No acute cervical fracture is seen. Disc spaces well-preserved from C2-3 through C4-5. At C5-6 again noted is bulging disc and osteophyte complex without significant spinal stenosis. At C6-7 there is also mild bulging the disc with no significant spinal stenosis. Again noted are changes of posterior instrumented fixation with spinal rods and pedicle screws in the C7 and T1 vertebrae as well as the T3 and T4 vertebrae without acute complication. Destructive changes and severe compression of the T2 vertebral body again noted. Surgical drain is been removed and overlying skin deborah of the lower cervical and thoracic region remain in place. There has been interval development of a large fluid collection in the posterior soft tissues overlying the surgicalbed measuring approximately 7 cm in cephalocaudal length maximum transverse diameter of 6.2 cm AP by 11.2 cm transverse on image one series 8 overlying the lower cervical and upper thoracic vertebralbodies, this collection does not communicate with the thecal sac and is likely a large postoperative seroma, it contains no air bubbles to suggest an abscess which is less likely. There is no associated wall enhancement of this fluid collection. Surrounding subcutaneous edema is noted. CT THORACIC SPINE: Severe compression pathologic fracture deformity of the T7 vertebral body has progressed since the prior exam now with vertebral plana deformity. Extensive destructive changes of this vertebra extending into the left-sided pedicle are noted. No obvious enhancing tumor noted within the spinal canal.There is 5 mm of retropulsion of the posterior inferior corner of this fractured vertebral body into the spinal canal noted narrowing of the midline thecal sac diameter to 6 mm with some mild compression of the right thoracic spinal cord not seen on the prior exam. It is difficult to estimate extent of any epidural tumor that may be present at this level. Remaining vertebrae demonstrate no compression fractures, with diffuse marrow abnormalities consistent with metastatic disease.. No other significant spinal stenosis is seen. Impression: 1. Interval progression of severe pathologic fracture of the T7 vertebral body now withvertebral plana, extensive destructive changes including the left-sided pedicle. Interval development of 5 mm of retropulsion of the bone fragment into the spinal canal to the right of midline now with mild compression of the right thoracic spinal cord not seen on the prior exam with 6 mm midline AP thecal sac diameter. 2. Postoperative changes of posterior instrumented fixation from C7 to T4 as noted on 11/11/2022 bridging pathologic fracture at the T2 level. New superficial fluid collection in the posterior soft tissues overlying the surgical bed without communication with the thecal sac likely a postoperative se leonard measuring 6 x 11 x 7 cm, this is unlikely to represent an abscess. CRITICAL DOCUMENT ONLY finding communicated directly to Marcello Fisher DO and documented in the [employer] system on 12/02/2022 12:31 AM, Message ID [id number]. -------- FINAL REPORT -------- Dictated By: Ricky Walters Dictated Date: 12/02/2022 00:09 Assigned Physician: Ricky Walters Reviewed and Electronically Signed By: Ricky Walters Signed Date: 12/02/2022 00:32 Workstation ID: [id number] Transcribed By: Self Edit Transcribed Date: 12/02/2022 00:09 Allergies: No Known Allergies * Julieta Lin NP - 12/03/2022 10:14 AM EST Neurosurgery Progress Note Patient: Armand Barron Room: [address] [place] [address] Age: 67 y.o. Attending: Edyta Rick DO Date of Service: 12/03/22 Admit: 12/01/2022 PCP: Salena Flores NP Assessment/Plan Armand Barron is a 67 y/o M who presented 12/01 for evaluation of his incision. POD #22 S/P C7-T4 posterior fusion by pedicle screw fixation, T2, T7 removal of epidural tumor by laminectomy, facetectomy, foraminotomy by Dr. Tao 11/11/22. He was brought to [facility] for evaluation of his posterior neck incision; concern for infection d/t significant drainage and erythema to the site, deborah in place.. He is established at [facility] and was supposed to start radiation 12/02 (Multiple Myeloma).While in the ED, he had imaging done which shows progression of severe T7 pathologic compression fxand retropulsion of bony fragments into the spinal canal, and a post-op fluid collection. IR was con sulted and a drain was placed. Wound care was consulted for incision. Wound care saw the patient for evaluation and management. - Wound care/dressing changes to mid thoracic surgical wound every 5 days as follows: Remove old dressing and alginate packing from small open area, irrigate the open area with NS, pack the 2 cm deep site of where there was a seroma using the alginate Ag rope packing (in room), cover with a long foam bordered dressing. Please date the dressing. T7 Pathologic Compression Fracture Post Op Fluid Collection - CT C/T Spine with interval progression of severe pathologic fracture of the T7 vertebral body with 5 mm of retropulsion - MR C spine shows fluid collection in the cervical and thoracic spine - IR placed drain - Drain; upper midline back - placed by IR on 12/02 - Empty per shift and record output - On Ancef - Routine neuro checks - notify FREDI with any change in neuro exam - Wound care consulted - please remove deborah, would recommend a wound vac on this incision - Activity as tolerated - VTE: BLE SCD's - Pain per Primary Disposition: - ADOD: pending clinical course Julieta Lin [employer] Send message via [employer] with further questions. Greater than 40 minutes were spent including face to face interview/education, and chart review including multiple provider notes, diagnostic testing results, and lab review. [id number] Subjective Patient states he is feeling well. He denies any pain and seems very cheerful. Objective Vitals: 12/03/22 0751 BP: 120/72 Pulse: 73 Resp: 16 Temp: 37.3 C (99.1 F) SpO2: 93% Mental Status: Alert & oriented x4 Language: Speech is fluent, non-dysarthric, able to follow commands Fund of knowledge: aware of current events, vocabulary is normal Sensation: Sensory exam completed: grossly intact to light touch Motor: Muscle strength was assessed in all extremities BUE grasp/biceps/triceps/deltoid = 5/5 BLE DF/KF/KE/HF/HE = 0/5, PF = 1/5 Reflexes: + right Tyson's GI: Abdomen soft, nontender Pulmonary: Respirations are regular and unlabored Incision: Deborah - removed today, alginate dressing Medications Allergies: No Known Allergies Current Medications: Current Facility-Administered Medications: acetaminophen (TYLENOL) tablet 650 mg, 650 mg, oral, q6h PRN, [employer], DO, 650 mg at 12/02/22 1708 amLODIPine (NORVASC) tablet 10 mg, 10 mg, oral, Daily, [employer], DO, 10 mg at 12/03/22 0915 atorvastatin (LIPITOR) tablet 10 mg, 10 mg, oral, Daily, [employer], DO, 10 mg at 12/03/22 0915 ceFAZolin (ANCEF) 1 gram/10 mL IV syringe 1 g, 1 g, intravenous, q8h, [employer], DO, 1 g at 12/03/22 0916 HYDROmorphone (DILAUDID) injection 0.5 mg, 0.5 mg, intravenous, q3h PRN, [employer], DO, 0.5 mg at 12/02/22 1347 levothyroxine (SYNTHROID, LEVOTHROID) tablet 88 mcg, 88 mcg, oral, Daily, Blade Palm DO, 88 mcg at 12/03/22915 melatonin tablet 6 mg, 6 mg, oral, Nightly, Blade [employer] DO, 6 mg at 12/02/222055 metoprolol tartrate (LOPRESSOR) tablet 50 mg, 50 mg, oral, BID, Blade Palm DO, 50 mg at ondansetron ODT (ZOFRAN-ODT) disintegrating tablet 4 mg, 4 mg, oral, q8h PRN OR ondansetron (PF) (ZOFRAN) injection 4 mg, 4 mg, intravenous, q8h PRN, Blade Palm DO oxyCODONE (ROXICODONE) immediate release tablet 5 mg, 5 mg, oral, q4h PRN, Blade Palm DO, 5 mg at 12/03/22915 pantoprazole (PROTONIX) EC tablet 40 mg, 40 mg, oral, q AM AC, Blade Palm DO, 40 mg at 12/03/22 0514 prochlorperazine (COMPAZINE) tablet 10 mg, 10 mg, oral, q6h PRN OR prochlorperazine (COMPAZINE)injection 10 mg, 10 mg, intravenous, q6h PRN OR prochlorperazine (COMPAZINE) suppository 25 mg,25 mg, rectal, q12h PRN, Blade Palm DO senna-docusate (PERICOLACE) 8.6-50 mg per tablet 1 tablet, 1 tablet, oral, BID PRN, Blade Palm DO [COMPLETED] Insert peripheral IV, , , Once AND Maintain IV access, , , Until discontinued AND [COMPLETED] Saline lock IV, , , Once AND sodium chloride 0.9 % flush 10 mL, 10 mL, intravenous, BID, 10 mL at 12/03/22915 AND sodium chloride 0.9 % flush 10 mL, 10 mL, intravenous, PRN, Blade Palm DO, 10 mL at 12/02/221653 traZODone (DESYREL) tablet 50 mg, 50 mg, oral, Nightly PRN, Blade Palm DO Radiology/Diagnostics Results for orders placed during the hospital encounter of 12/01/22 MR Thoracic Spine wo and w Contrast Narrative EXAMINATION TYPE: MR THORACIC SPINE WO AND W CONTRAST, MR CERVICAL SPINE WO AND W CONTRAST DATE OF EXAM ORDERED: 12/02/2022 2:19 AM HISTORY: pathologic T7 compression fracture with retropulsion, post op fluid collection, likely seroma COMPARISON: CT 12/01/2022, MR 11/10/2022 TECHNIQUE: MR cervical and thoracic spine with and without contrast FINDINGS: THORACIC SPINE: At T7, there is an enhancing mass with associated pathologic compression fracture. There has been progression of vertebral body height loss since the prior examination from 11/10/2022, as well as increased retropulsion of bony fragments into the spinal canal at this level. Retropulsion of bony fragments results in fairly severe narrowing of the thecal sac at this level, as well as cord compressionand mildly increased cord signal intensity from the T6-7 through T7-8 levels. The extent of compression is improved compared to the prior preoperative examination from 11/10/2022. Posterior laminectomy has been performed at the T5 level. Smaller enhancing lesions are present in the T10 and T11 vertebral bodies. There has been resection of a mass previously noted at the T2 level, spinal fusion hardware from [id number] T4. A small amount of residual enhancing tissue in the left neural foramen at T2-3 may represent granulation tissue or residual tumor. Previously noted cord compression in this area has improved. In the posterior paraspinal soft tissues, there is a fluid collection along the midline and slightly right of midline extending from the cervicothoracic junction to the T8 level. This abuts the spinous processes and abuts the facet joints near the levels of the surgical hardware. This is also contiguous with the laminectomy defects at the T7 level and in the upper thoracic spine at the areas of fusion. No additional cord signal abnormality is identified. Postsurgical changes are present elsewhere in the paraspinal soft tissues. Trace bilateral pleural effusions are noted. CERVICAL SPINE: Posterior fusion has been performed from C7 through T4. Focal kyphosis is noted in the upper thoracic spine. Alignment is otherwise maintained. There is been resection of the previously noted mass atthe T2 level. There is some residual enhancing tissue within the left foramen at the T2-3 level, which could represent residual tumor or granulation tissue. No additional discrete lesion is identified. No abnormal cord signal intensity is identified in the cervical cord. The craniocervical junction is intact. Postsurgical changes are present in the posterior paraspinal soft tissues in the lower cervical andupper thoracic region. In the posterior paraspinal soft tissues near the midline into the right of midline, there is a peripherally enhancing fluid collection extending from the C5 level inferiorly into the upper thoracic region. This extends to the laminectomy defect at the lower cervical and upper thoracic spine. There is no significant associated mass effect on the thecal sac. Evaluation of the lower cervical spine is somewhat limited by susceptibility artifact from surgicalhardware. Multilevel mild to moderate degenerative changes are present in the lower cervical spine,grossly similar to the prior examination. Impression At the T7 level, there has been progression of a severe compression fracture and retropulsion of bony fragments into the spinal canal. Posterior decompression has been performed at this level. There is compression of the cord at this level with increased cord signal intensity as above. The overall extent of cord compression at this level is decreased compared to the prior postoperative examination from 11/10/2022. Resection of the previously noted mass at the T2 level. There is a small residual enhancing tissue in the left T2-T3 neural foramen, which may represent granulation tissue or an element of residual mass. Cord compression in this area has improved. Enhancing masses in the T10 and T11 vertebral bodies, not significantly changed. In the posterior paraspinal soft tissues, there is a large fluid collection at the midline and slightly right of midline, which extends from approximately the C5 level to the T8 level. There is some extension of the fluid collection to the laminectomy defects at T2 and T7. Some peripheral enhancement is present. This may represent a postoperative seroma, however, sterility is not confirmed. Clinical correlation is recommended. -------- FINAL REPORT -------- Dictated By: Shay Dallas Dictated Date: 12/02/2022 07:20 Assigned Physician: Shay Dallas Reviewed and Electronically Signed By: Shay Dallas Signed Date: 12/02/2022 07:48 Workstation ID: [id number] Transcribed By: Self Edit Transcribed Date: 12/02/2022 07:20 Results for orders placed during the hospital encounter of 12/01/22 MR Thoracic Spine wo and w Contrast Narrative EXAMINATION TYPE: MR THORACIC SPINE WO AND W CONTRAST, MR CERVICAL SPINE WO AND W CONTRAST DATE OF EXAM ORDERED: 12/02/2022 2:19 AM HISTORY: pathologic T7 compression fracture with retropulsion, post op fluid collection, likely seroma COMPARISON: CT 12/01/2022, MR 11/10/2022 TECHNIQUE: MR cervical and thoracic spine with and without contrast FINDINGS: THORACIC SPINE: At T7, there is an enhancing mass with associated pathologic compression fracture. There has been progression of vertebral body height loss since the prior examination from 11/10/2022, as well as increased retropulsion of bony fragments into the spinal canal at this level. Retropulsion of bony fragments results in fairly severe narrowing of the thecal sac at this level, as well as cord compressionand mildly increased cord signal intensity from the T6-7 through T7-8 levels. The extent of compression is improved compared to the prior preoperative examination from 11/10/2022. Posterior laminectomy has been performed at the T5 level. Smaller enhancing lesions are present in the T10 and T11 vertebral bodies. There has been resection of a mass previously noted at the T2 level, spinal fusion hardware from [id number] T4. A small amount of residual enhancing tissue in the left neural foramen at T2-3 may represent granulation tissue or residual tumor. Previously noted cord compression in this area has improved. In the posterior paraspinal soft tissues, there is a fluid collection along the midline and slightly right of midline extending from the cervicothoracic junction to the T8 level. This abuts the spinous processes and abuts the facet joints near the levels of the surgical hardware. This is also contiguous with the laminectomy defects at the T7 level and in the upper thoracic spine at the areas of fusion. No additional cord signal abnormality is identified. Postsurgical changes are present elsewhere in the paraspinal soft tissues. Trace bilateral pleural effusions are noted. CERVICAL SPINE: Posterior fusion has been performed from C7 through T4. Focal kyphosis is noted in the upper thoracic spine. Alignment is otherwise maintained. There is been resection of the previously noted mass atthe T2 level. There is some residual enhancing tissue within the left foramen at the T2-3 level, which could represent residual tumor or granulation tissue. No additional discrete lesion is identified. No abnormal cord signal intensity is identified in the cervical cord. The craniocervical junction is intact. Postsurgical changes are present in the posterior paraspinal soft tissues in the lower cervical andupper thoracic region. In the posterior paraspinal soft tissues near the midline into the right of midline, there is a peripherally enhancing fluid collection extending from the C5 level inferiorly into the upper thoracic region. This extends to the laminectomy defect at the lower cervical and upper thoracic spine. There is no significant associated mass effect on the thecal sac. Evaluation of the lower cervical spine is somewhat limited by susceptibility artifact from surgicalhardware. Multilevel mild to moderate degenerative changes are present in the lower cervical spine,grossly similar to the prior examination. Impression At the T7 level, there has been progression of a severe compression fracture and retropulsion of bony fragments into the spinal canal. Posterior decompression has been performed at this level. There is compression of the cord at this level with increased cord signal intensity as above. The overall extent of cord compression at this level is decreased compared to the prior postoperative examination from 11/10/2022. Resection of the previously noted mass at the T2 level. There is a small residual enhancing tissue in the left T2-T3 neural foramen, which may represent granulation tissue or an element of residual mass. Cord compression in this area has improved. Enhancing masses in the T10 and T11 vertebral bodies, not significantly changed. In the posterior paraspinal soft tissues, there is a large fluid collection at the midline and slightly right of midline, which extends from approximately the C5 level to the T8 level. There is some extension of the fluid collection to the laminectomy defects at T2 and T7. Some peripheral enhancement is present. This may represent a postoperative seroma, however, sterility is not confirmed. Clinical correlation is recommended. -------- FINAL REPORT -------- Dictated By: Shay Dallas Dictated Date: 12/02/2022 07:20 Assigned Physician: Shay Dallas Reviewed and Electronically Signed By: Shay Dallas Signed Date: 12/02/2022 07:48 Workstation ID: [id number] Transcribed By: Self Edit Transcribed Date: 12/02/2022 07:20 Labs Lab Results Component Value Date CREATININE 0.72 12/03/2022 BUN 17 12/03/2022 NA 137 12/03/2022 K 3.8 12/03/2022 CL 102 12/03/2022 CO2 28 12/03/2022 WBC 6.6 12/01/2022 WBC 100 12/01/2022 RBC 3.46 (L) 12/01/2022 HGB 10.5 (L) 12/01/2022 HCT 32.2 (L) 12/01/2022 PLT 167 12/01/2022 PT 13.5 12/02/2022 INR 1.0 12/02/2022 Lab Results Component Value Date BLOODCX No growth at 24 hours 12/01/2022 BLOODCX No growth at 24 hours 12/01/2022 * Kofi Walters RN - 12/03/2022 1:26 AM EST Problem: Cognitive: Goal: Mobility requiring assistance of person or device Outcome: Progressing Goal: Mental Status/LOC/Awareness Outcome: Progressing Problem: Skin Integrity: Goal: Will not develop new pressure injury Outcome: Progressing Problem: Physical Regulation: Goal: Signs and symptoms of infection will decrease Outcome: Progressing Goal: Diagnostic test results will improve Outcome: Progressing Goals: Clinical Goals for the Shift: Decrease pain/ABX as ordered. Assist with ADL's, monitor I/O from drain. Stability of the patient: Moderately Stable - Low risk of patient condition declining or worsening * Edyta Rick DO - 12/02/2022 11:56 AM EST Images from the original note were not included. Progress Note Chief Complaint/Visit Reason: My incision did not look good and they sent me back to the hospital Impression: This patient is a 67-year-old male with past medical history of hypertension, hyperlipidemia, hypothyroidism, GERD, and recent diagnosis of multiple myeloma with T2 and T7 pathological fractures withepidural tumor and subsequent cord compression. He underwent thoracic decompression and removal of T2 and T7 epidural tumor by laminectomy, facetectomy, and foraminotomy as well as posterior thoracicfusion of C7-T4 by screw fixation on 11/11/[address] Tao. Patient has been doing therapy at [facility] in [place] and staff noted that his incision began looking erythematous, copious drainage. He was sent back to [facility] for evaluation by neurosurgery. Diagnoses: Possible postoperative wound infection versus seroma. Multiple myeloma with T2 and T7 pathological fractures with epidural tumor status post C7-T4 posterior thoracic fusion with fixation and removal of epidural tumor with laminectomy, facetectomy, and foraminotomy by Dr. Tao on 11/11/2022. 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 Hypertension. Hyperlipidemia. Hypothyroidism. GERD. Plan: Appreciate neurosurgical input. CT showed progression of compression at T7 and a large fluid collection. The patient has remained afebrile, no leukocytosis, nontoxic-appearing. MRI pending. Continue Ancef. Follow-up blood cultures. Doubt they will be positive, afebrile, no leukocytosis. Pain and symptom management. PT/OT eval, patient would like to go back to [facility] in [place] where he was doing rehab. Changed Vanegas catheter in the ER. Home medications resumed. Diet as tolerated. DVT prophylaxis: SCDs Code Status: Full code. Disposition: To be determined. We will wait on MRI and cultures. Patient lives alone, was working full-time in his job at the [employer] in [employer] prior to his diagnosis of multiple myeloma in October 2022. His brother lives in [facility] and is his POA, sister in [place]. No spouse or children. Edyta Rick, DO [facility] ([facility]) Subjective: She is awake and alert, remains in the ER awaiting a bed assignment. He just got back from MRI. Review of Systems Vitals and Physical exam: Patient Vitals for the past 24 hrs: BP Temp Temp src Pulse Resp SpO2 Height Weight 12/02/22 1153 110/74 -- -- 77 15 96 % -- -- 12/02/22 0837 115/70 36.5 C (97.7 F) -- 71 16 -- -- -- 12/02/22 0835 115/70 36.5 C (97.7 F) Oral 70 16 100 % -- -- 12/02/22 0700 97/65 -- -- 69 -- 91 % -- -- 12/02/22 0630 104/71 36.7 C (98 F) Oral 66 -- 95 % -- -- 12/02/22 0400 107/62 -- -- 65 -- 94 % -- -- 12/02/22 0300 97/66 -- -- 65 -- 93 % -- -- 12/02/22 0130 -- -- -- 66 -- 96 % -- -- 12/02/22 0100 106/60 -- -- 66 18 91 % -- -- 12/02/22 0030 -- -- -- 65 -- 93 % -- -- 12/02/22 0015 -- -- -- 76 -- 99 % -- -- 12/02/22 0000 116/70 -- -- 78 20 95 % -- -- 12/01/22 2345 107/68 -- -- 78 -- 95 % -- -- 12/01/22 2330 -- -- -- 77 -- 97 % -- -- 12/01/22 1814 -- -- -- -- -- 97 % -- -- 12/01/22 1810 126/77 36.9 C (98.5 F) Oral 81 16 97 % 1.753 m (69) 77.1 kg (170 lb) Body mass index is 25.1 kg/m . No intake or output data in the 24 hours ending 12/02/22 1158 Physical Exam Constitutional: General: He is not in acute distress. Appearance: He is normal weight. He is not ill-appearing or toxic-appearing. HENT: Head: Normocephalic and atraumatic. Mouth/Throat: Mouth: Mucous membranes are moist. Eyes: Extraocular Movements: Extraocular movements intact. Neck: Comments: Patient has a midline incision from his mid neck down to the thoracic region, erythematous, serosanguineous drainage not malodorous. Cardiovascular: Rate and Rhythm: Normal rate and regular rhythm. Heart sounds: No murmur heard. Pulmonary: Effort: Pulmonary effort is normal. Breath sounds: Normal breath sounds. No wheezing or rhonchi. Abdominal: General: Bowel sounds are normal. Palpations: Abdomen is soft. Tenderness: There is no abdominal tenderness. Musculoskeletal: Right lower leg: No edema. Left lower leg: No edema. Skin: General: Skin is dry. Coloration: Skin is pale. Neurological: Mental Status: He is alert and oriented to person, place, and time. Comments: Cognitively intact, excellent historian. Psychiatric: Thought Content: Thought content normal. Recent Lab Results: Results from last 7 days Lab Units 12/01/222043 SODIUM mmol/L 135* POTASSIUM mmol/L 3.5* CHLORIDE mmol/L 99 CO2 mmol/L 28 BUN mg/dL 18 CREATININE mg/dL 0.54* Results from last 7 days Lab Units 12/01/222043 WBC AUTO K/mcL 6.6 TOTAL COUNTED 100 HEMOGLOBIN g/dL 10.5* HEMATOCRIT % 32.2* PLATELETS K/mcL 167 MCV FL 93.1 Recent Imaging Findings: MR Thoracic Spine wo and w Contrast Narrative: EXAMINATION TYPE: MR THORACIC SPINE WO AND W CONTRAST, MR CERVICAL SPINE WO AND W CONTRAST DATE OF EXAM ORDERED: 12/02/2022 2:19 AM HISTORY: pathologic T7 compression fracture with retropulsion, post op fluid collection, likely seroma COMPARISON: CT 12/01/2022, MR 11/10/2022 TECHNIQUE: MR cervical and thoracic spine with and without contrast FINDINGS: THORACIC SPINE: At T7, there is an enhancing mass with associated pathologic compression fracture. There has been progression of vertebral body height loss since the prior examination from 11/10/2022, as well as increased retropulsion of bony fragments into the spinal canal at this level. Retropulsion of bony fragments results in fairly severe narrowing of the thecal sac at this level, as well as cord compressionand mildly increased cord signal intensity from the T6-7 through T7-8 levels. The extent of compression is improved compared to the prior preoperative examination from 11/10/2022. Posterior laminectomy has been performed at the T5 level. Smaller enhancing lesions are present in the T10 and T11 vertebral bodies. There has been resection of a mass previously noted at the T2 level, spinal fusion hardware from [id number] T4. A small amount of residual enhancing tissue in the left neural foramen at T2-3 may represent granulation tissue or residual tumor. Previously noted cord compression in this area has improved. In the posterior paraspinal soft tissues, there is a fluid collection along the midline and slightly right of midline extending from the cervicothoracic junction to the T8 level. This abuts the spinous processes and abuts the facet joints near the levels of the surgical hardware. This is also contiguous with the laminectomy defects at the T7 level and in the upper thoracic spine at the areas of fusion. No additional cord signal abnormality is identified. Postsurgical changes are present elsewhere in the paraspinal soft tissues. Trace bilateral pleural effusions are noted. CERVICAL SPINE: Posterior fusion has been performed from C7 through T4. Focal kyphosis is noted in the upper thoracic spine. Alignment is otherwise maintained. There is been resection of the previously noted mass atthe T2 level. There is some residual enhancing tissue within the left foramen at the T2-3 level, which could represent residual tumor or granulation tissue. No additional discrete lesion is identified. No abnormal cord signal intensity is identified in the cervical cord. The craniocervical junction is intact. Postsurgical changes are present in the posterior paraspinal soft tissues in the lower cervical andupper thoracic region. In the posterior paraspinal soft tissues near the midline into the right of midline, there is a peripherally enhancing fluid collection extending from the C5 level inferiorly into the upper thoracic region. This extends to the laminectomy defect at the lower cervical and upper thoracic spine. There is no significant associated mass effect on the thecal sac. Evaluation of the lower cervical spine is somewhat limited by susceptibility artifact from surgicalhardware. Multilevel mild to moderate degenerative changes are present in the lower cervical spine,grossly similar to the prior examination. Impression: At the T7 level, there has been progression of a severe compression fracture and retropulsion of bony fragments into the spinal canal. Posterior decompression has been performed at this level. There is compression of the cord at this level with increased cord signal intensity as above. The overall extent of cord compression at this level is decreased compared to the prior postoperative examination from 11/10/2022. Resection of the previously noted mass at the T2 level. There is a small residual enhancing tissue in the left T2-T3 neural foramen, which may represent granulation tissue or an element of residual mass. Cord compression in this area has improved. Enhancing masses in the T10 and T11 vertebral bodies, not significantly changed. In the posterior paraspinal soft tissues, there is a large fluid collection at the midline and slightly right of midline, which extends from approximately the C5 level to the T8 level. There is some extension of the fluid collection to the laminectomy defects at T2 and T7. Some peripheral enhancement is present. This may represent a postoperative seroma, however, sterility is not confirmed. Clinical correlation is recommended. -------- FINAL REPORT -------- Dictated By: Shay Dallas Dictated Date: 12/02/2022 07:20 Assigned Physician: Shay Dallas Reviewed and Electronically Signed By: Shay Dallas Signed Date: 12/02/2022 07:48 Workstation ID: [id number] Transcribed By: Self Edit Transcribed Date: 12/02/2022 07:20 MR Cervical Spine wo and w Contrast Narrative: EXAMINATION TYPE: MR THORACIC SPINE WO AND W CONTRAST, MR CERVICAL SPINE WO AND W CONTRAST DATE OF EXAM ORDERED: 12/02/2022 2:19 AM HISTORY: pathologic T7 compression fracture with retropulsion, post op fluid collection, likely seroma COMPARISON: CT 12/01/2022, MR 11/10/2022 TECHNIQUE: MR cervical and thoracic spine with and without contrast FINDINGS: THORACIC SPINE: At T7, there is an enhancing mass with associated pathologic compression fracture. There has been progression of vertebral body height loss since the prior examination from 11/10/2022, as well as increased retropulsion of bony fragments into the spinal canal at this level. Retropulsion of bony fragments results in fairly severe narrowing of the thecal sac at this level, as well as cord compressionand mildly increased cord signal intensity from the T6-7 through T7-8 levels. The extent of compression is improved compared to the prior preoperative examination from 11/10/2022. Posterior laminectomy has been performed at the T5 level. Smaller enhancing lesions are present in the T10 and T11 vertebral bodies. There has been resection of a mass previously noted at the T2 level, spinal fusion hardware from [id number] T4. A small amount of residual enhancing tissue in the left neural foramen at T2-3 may represent granulation tissue or residual tumor. Previously noted cord compression in this area has improved. In the posterior paraspinal soft tissues, there is a fluid collection along the midline and slightly right of midline extending from the cervicothoracic junction to the T8 level. This abuts the spinous processes and abuts the facet joints near the levels of the surgical hardware. This is also contiguous with the laminectomy defects at the T7 level and in the upper thoracic spine at the areas of fusion. No additional cord signal abnormality is identified. Postsurgical changes are present elsewhere in the paraspinal soft tissues. Trace bilateral pleural effusions are noted. CERVICAL SPINE: Posterior fusion has been performed from C7 through T4. Focal kyphosis is noted in the upper thoracic spine. Alignment is otherwise maintained. There is been resection of the previously noted mass atthe T2 level. There is some residual enhancing tissue within the left foramen at the T2-3 level, which could represent residual tumor or granulation tissue. No additional discrete lesion is identified. No abnormal cord signal intensity is identified in the cervical cord. The craniocervical junction is intact. Postsurgical changes are present in the posterior paraspinal soft tissues in the lower cervical andupper thoracic region. In the posterior paraspinal soft tissues near the midline into the right of midline, there is a peripherally enhancing fluid collection extending from the C5 level inferiorly into the upper thoracic region. This extends to the laminectomy defect at the lower cervical and upper thoracic spine. There is no significant associated mass effect on the thecal sac. Evaluation of the lower cervical spine is somewhat limited by susceptibility artifact from surgicalhardware. Multilevel mild to moderate degenerative changes are present in the lower cervical spine,grossly similar to the prior examination. Impression: At the T7 level, there has been progression of a severe compression fracture and retropulsion of bony fragments into the spinal canal. Posterior decompression has been performed at this level. There is compression of the cord at this level with increased cord signal intensity as above. The overall extent of cord compression at this level is decreased compared to the prior postoperative examination from 11/10/2022. Resection of the previously noted mass at the T2 level. There is a small residual enhancing tissue in the left T2-T3 neural foramen, which may represent granulation tissue or an element of residual mass. Cord compression in this area has improved. Enhancing masses in the T10 and T11 vertebral bodies, not significantly changed. In the posterior paraspinal soft tissues, there is a large fluid collection at the midline and slightly right of midline, which extends from approximately the C5 level to the T8 level. There is some extension of the fluid collection to the laminectomy defects at T2 and T7. Some peripheral enhancement is present. This may represent a postoperative seroma, however, sterility is not confirmed. Clinical correlation is recommended. -------- FINAL REPORT -------- Dictated By: Shay Dallas Dictated Date: 12/02/2022 07:20 Assigned Physician: Shay Dallas Reviewed and Electronically Signed By: Shay Dallas Signed Date: 12/02/2022 07:48 Workstation ID: [id number] Transcribed By: Self Edit Transcribed Date: 12/02/2022 07:20 CT Cervical Spine w Contrast Narrative: EXAMINATION TYPE: CT CERVICAL SPINE W CONTRAST, CT THORACIC SPINE W CONTRAST DATE OF EXAM ORDERED: 12/01/2022 10:12 PM HISTORY: post-op infection concern, recent thoracic lower cervical surgery on 11/11. Drainage from surgical wound, CONTRAST USED: 100 mL [id number] COMPARISON: CT thoracic spine 11/11/2022, MRI cervical and thoracic spine 11/10/2022 TECHNIQUE: Contiguous axial, coronal and sagittal images were obtained through the cervical and thoracic spine following intravenous contrast administration. FINDINGS: CT CERVICAL SPINE: Skull base is intact. Atlantoaxial joint is unremarkable. There is convex left scoliosis noted. The vertebrae are otherwise normally aligned. No acute cervical fracture is seen. Disc spaces well-preserved from C2-3 through C4-5. At C5-6 again noted is bulging disc and osteophyte complex without significant spinal stenosis. At C6-7 there is also mild bulging the disc with no significant spinal stenosis. Again noted are changes of posterior instrumented fixation with spinal rods and pedicle screws in the C7 and T1 vertebrae as well as the T3 and T4 vertebrae without acute complication. Destructive changes and severe compression of the T2 vertebral body again noted. Surgical drain is been removed and overlying skin deborah of the lower cervical and thoracic region remain in place. There has been interval development of a large fluid collection in the posterior soft tissues overlying the surgicalbed measuring approximately 7 cm in cephalocaudal length maximum transverse diameter of 6.2 cm AP by 11.2 cm transverse on image one series 8 overlying the lower cervical and upper thoracic vertebralbodies, this collection does not communicate with the thecal sac and is likely a large postoperative seroma, it contains no air bubbles to suggest an abscess which is less likely. There is no associated wall enhancement of this fluid collection. Surrounding subcutaneous edema is noted. CT THORACIC SPINE: Severe compression pathologic fracture deformity of the T7 vertebral body has progressed since the prior exam now with vertebral plana deformity. Extensive destructive changes of this vertebra extending into the left-sided pedicle are noted. No obvious enhancing tumor noted within the spinal canal.There is 5 mm of retropulsion of the posterior inferior corner of this fractured vertebral body into the spinal canal noted narrowing of the midline thecal sac diameter to 6 mm with some mild compression of the right thoracic spinal cord not seen on the prior exam. It is difficult to estimate extent of any epidural tumor that may be present at this level. Remaining vertebrae demonstrate no compression fractures, with diffuse marrow abnormalities consistent with metastatic disease.. No other significant spinal stenosis is seen. Impression: 1. Interval progression of severe pathologic fracture of the T7 vertebral body now withvertebral plana, extensive destructive changes including the left-sided pedicle. Interval development of 5 mm of retropulsion of the bone fragment into the spinal canal to the right of midline now with mild compression of the right thoracic spinal cord not seen on the prior exam with 6 mm midline AP thecal sac diameter. 2. Postoperative changes of posterior instrumented fixation from C7 to T4 as noted on 11/11/2022 bridging pathologic fracture at the T2 level. New superficial fluid collection in the posterior soft tissues overlying the surgical bed without communication with the thecal sac likely a postoperative se leonard measuring 6 x 11 x 7 cm, this is unlikely to represent an abscess. CRITICAL DOCUMENT ONLY finding communicated directly to Marcello Fisher DO and documented in the [employer] system on 12/02/2022 12:31 AM, Message ID [id number]. -------- FINAL REPORT -------- Dictated By: Ricky Walters Dictated Date: 12/02/2022 00:09 Assigned Physician: Ricky Walters Reviewed and Electronically Signed By: Ricky Walters Signed Date: 12/02/2022 00:32 Workstation ID: [id number] Transcribed By: Self Edit Transcribed Date: 12/02/2022 00:09 CT Thoracic Spine w Contrast Narrative: EXAMINATION TYPE: CT CERVICAL SPINE W CONTRAST, CT THORACIC SPINE W CONTRAST DATE OF EXAM ORDERED: 12/01/2022 10:12 PM HISTORY: post-op infection concern, recent thoracic lower cervical surgery on 11/11. Drainage from surgical wound, CONTRAST USED: 100 mL ISOVUE-300 COMPARISON: CT thoracic spine 11/11/2022, MRI cervical and thoracic spine 11/10/2022 TECHNIQUE: Contiguous axial, coronal and sagittal images were obtained through the cervical and thoracic spine following intravenous contrast administration. FINDINGS: CT CERVICAL SPINE: Skull base is intact. Atlantoaxial joint is unremarkable. There is convex left scoliosis noted. The vertebrae are otherwise normally aligned. No acute cervical fracture is seen. Disc spaces well-preserved from C2-3 through C4-5. At C5-6 again noted is bulging disc and osteophyte complex without significant spinal stenosis. At C6-7 there is also mild bulging the disc with no significant spinal stenosis. Again noted are changes of posterior instrumented fixation with spinal rods and pedicle screws in the C7 and T1 vertebrae as well as the T3 and T4 vertebrae without acute complication. Destructive changes and severe compression of the T2 vertebral body again noted. Surgical drain is been removed and overlying skin deborah of the lower cervical and thoracic region remain in place. There has been interval development of a large fluid collection in the posterior soft tissues overlying the surgicalbed measuring approximately 7 cm in cephalocaudal length maximum transverse diameter of 6.2 cm AP by 11.2 cm transverse on image one series 8 overlying the lower cervical and upper thoracic vertebralbodies, this collection does not communicate with the thecal sac and is likely a large postoperative seroma, it contains no air bubbles to suggest an abscess which is less likely. There is no associated wall enhancement of this fluid collection. Surrounding subcutaneous edema is noted. CT THORACIC SPINE: Severe compression pathologic fracture deformity of the T7 vertebral body has progressed since the prior exam now with vertebral plana deformity. Extensive destructive changes of this vertebra extending into the left-sided pedicle are noted. No obvious enhancing tumor noted within the spinal canal.There is 5 mm of retropulsion of the posterior inferior corner of this fractured vertebral body into the spinal canal noted narrowing of the midline thecal sac diameter to 6 mm with some mild compression of the right thoracic spinal cord not seen on the prior exam. It is difficult to estimate extent of any epidural tumor that may be present at this level. Remaining vertebrae demonstrate no compression fractures, with diffuse marrow abnormalities consistent with metastatic disease.. No other significant spinal stenosis is seen. Impression: 1. Interval progression of severe pathologic fracture of the T7 vertebral body now withvertebral plana, extensive destructive changes including the left-sided pedicle. Interval development of 5 mm of retropulsion of the bone fragment into the spinal canal to the right of midline now with mild compression of the right thoracic spinal cord not seen on the prior exam with 6 mm midline AP thecal sac diameter. 2. Postoperative changes of posterior instrumented fixation from C7 to T4 as noted on 11/11/2022 bridging pathologic fracture at the T2 level. New superficial fluid collection in the posterior soft tissues overlying the surgical bed without communication with the thecal sac likely a postoperative se leonard measuring 6 x 11 x 7 cm, this is unlikely to represent an abscess. CRITICAL DOCUMENT ONLY finding communicated directly to Marcello Phillip SALEH and documented in the [employer] system on 12/02/2022 12:31 AM, Message ID [id number]. -------- FINAL REPORT -------- Dictated By: Ricky Walters Dictated Date: 12/02/2022 00:09 Assigned Physician: Ricky Walters Reviewed and Electronically Signed By: Ricky Walters Signed Date: 12/02/2022 00:32 Workstation ID: [id number] Transcribed By: Self Edit Transcribed Date: 12/02/2022 00:09 Allergies: No Known Allergies * Zunilda Cross RN - 12/02/2022 10:42 AM EST Pastor Note: Orientation: alert and oriented to person, place, and time Patient Directives: Patient A&O, no HCPOA / no Living Will Patient Next of Kin / Surrogate Decision Maker is Sibling/s Alex Joe and Coty Pool Does the patient want anyone to be contacted?: Yes Insurance provider confirmed from chart: Yes and was correct Confirmed PCP: Salena Flores NP Yes and was correct Pharmacy: [facility]. [x] Yes and Confirmed Patient is able to afford medications Living Situation: Patient admitted from: [facility] Patient resides: 2 story home Address confirmed from chart: Yes and was correct Patient lives: Alone Patient's baseline at time of admission: SNF Care Patient has: Total Support: Support person willing, able, and available to help patient 19/04 to help with ADLs. Steps to enter home: 1 step Steps within home: several steps DME prior to this admission: None (DME provider is: N/A) Home Health Services: None Community Copy Cutter: None Outside Services: None and SNF [facility] Readmission : yes Social Influencers of Health: Social Influencers of Health Who provided answers?: Self Within the past 12 months we worried whether our food would run out before we got money to buy more.: Never true Within the past 12 months the food we bought just didn't last and we didn't have money to get more.: Never true How hard is it for you to pay for the very basics like food, housing, medical care, and air conditioning / heating?: Not very hard Are you worried that in the next 2 months you may not have stable housing?: No Do you have access to a variety of food including fruits and vegetables?: Yes Has the lack of transportation kept you from meetings, work, or from getting things needed for daily living?: No Has the lack of transportation kept you from medical appointments or from getting medications?: No Assessments Needed for Discharge: Patient will require Physical Therapy and Occupational Therapy assessments and updates Anticipated Needs at Discharge: Admitted: 12/01/2022 SIMIN: 12/04-08/19 A) Return to [facility] [phone], B) New SNF. Barrier to discharge: clinical course and symptom management. Decision maker: self. Pre-cert needed: n/a. Transport: [facility] per patient vs ambulance. PT/OT needed for eval and recommendations. Case Management Narrative: CM visited patient at bedside in the ER. Patient presented to [facility] with Post-op complications. Patient lives alone in a two story apartment with several internal steps and one step to enter home. Patient is currently at [facility] for rehab. New Dx of cancer and was scheduled to start radiation treatment today 12/02/22. Surgery has been consulted. Current discharge plan is to return to [facility] vs ambulance transport. CM will continue to follow and support through discharge. * JEFFERY Carlson - 12/02/2022 10:01 AM EST Neurosurgery Brief Note Patient: Armand Barron [facility] Age: 67 y.o. Attending: Edyta Rick DO Date of Service: 12/02/22 Admit: 12/01/2022 PCP: Slaena Flores NP Patient seen this morning on rounds with Dr. Tao, updates below. For full assessment/plan please refer to Michelle Rodriguez PA-C's earlier note. 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 * JEFFERY Gutierrez - 12/02/2022 12:36 AM EST Neurosurgery Progress Note Patient: Armand Barron Room: [facility] Age: 67 y.o. Attending: Ledy Jackson Date of Service: 12/02/22 Admit: 12/01/2022 PCP: Salena Flores, TIP Assessment/Plan Armand Barron is a 67 y/o M who presented 12/01 for evaluation of his incision. POD#21 S/P C7-T4 posterior fusion by pedicle screw fixation, T2, T7 removal of epidural tumor by laminectomy, facetectomy,foraminotomy by Dr. aTo 11/11/22. T7 Pathologic Compression Fracture - CT C/T Spine with interval progression of severe pathologic fracture of the T7 vertebral body with 5 mm of retropulsion Post Op Fluid Collection CT C/T with a new superficial fluid collection in the posterior soft tissues overlying the surgicalbed. No communication with thecal sac, likely postop seroma. Unlikely abscess. - MRI C/T Spine with and without contrast pending - WBC 6.6, afebrile - ESR 89, CRP 13.2 - Blood cultures pending - Pain control - Admit to medicine Further recommendations to follow pending review of MRI imaging by neurosurgeon. JEFFERY Gutierrez Please call [phone] ([phone]) with any further questions or concerns. Greater than 35 minutes were spent including face to face interview/education, and chart review including multiple provider notes, diagnostic testing results, and lab review. Greater than 50% of timespent in face to face counseling with patient. Subjective Patient denies neck or mid back pain. No new paresthesias/weakness/radicular pain. Objective Vitals: 12/02/22 0000 BP: 116/70 Pulse: 78 Resp: Temp: SpO2: 95% Mental Status: Alert & oriented x person/place/time Language: Speech is fluent, non-dysarthric, able to follow commands Fund of knowledge: aware of current events, vocabulary is normal Sensation: Sensory exam completed: grossly intact to light touch. No thoracic midline tenderness to palpation. Motor: Muscle strength was assessed in all extremities BUE grasp/biceps/triceps/deltoid = 5/5 BLE DF/KF/KE/HF/HE = 0/5, PF = 1/5 Reflexes: Positive right Tyson's. GI: Abdomen soft, nontender Pulmonary: Respirations are regular and unlabored Incision: Well approximated with deborah. One area mid incision with small area of yellow crusting. Mild surrounding erythema. No active drainage noted. Medications Allergies: No Known Allergies Current Medications: Current Facility-Administered Medications: acetaminophen (TYLENOL) tablet 650 mg, 650 mg, oral, q6h PRN, Blade Palm DO amLODIPine (NORVASC) tablet 10 mg, 10 mg, oral, Daily, Blade Palm, DO atorvastatin (LIPITOR) tablet 10 mg, 10 mg, oral, Daily, Blade Palm, DO ceFAZolin (ANCEF) 1 gram/10 mL IV syringe 1 g, 1 g, intravenous, q8h, Blade Palm DO, 1 g at 12/02/22 0012 HYDROmorphone (DILAUDID) injection 0.5 mg, 0.5 mg, intravenous, q3h PRN, Blade Palm DO, 0.5 mg at 12/02/22 0008 levothyroxine (SYNTHROID, LEVOTHROID) tablet 88 mcg, 88 mcg, oral, Daily, Blade Palm DO melatonin tablet 6 mg, 6 mg, oral, Nightly, Blade Palm DO, 6 mg at 12/02/22 001 metoprolol tartrate (LOPRESSOR) tablet 50 mg, 50 mg, oral, BID, Blade Palm DO, 50 mg at ondansetron ODT (ZOFRAN-ODT) disintegrating tablet 4 mg, 4 mg, oral, q8h PRN OR ondansetron (PF) (ZOFRAN) injection 4 mg, 4 mg, intravenous, q8h PRN, Blade Palm DO oxyCODONE (ROXICODONE) immediate release tablet 5 mg, 5 mg, oral, q4h PRN, Blade Palm DO pantoprazole (PROTONIX) EC tablet 40 mg, 40 mg, oral, q AM AC, Blade Palm DO prochlorperazine (COMPAZINE) tablet 10 mg, 10 mg, oral, q6h PRN OR prochlorperazine (COMPAZINE)injection 10 mg, 10 mg, intravenous, q6h PRN OR prochlorperazine (COMPAZINE) suppository 25 mg,25 mg, rectal, q12h PRN, Blade Palm DO senna-docusate (PERICOLACE) 8.6-50 mg per tablet 1 tablet, 1 tablet, oral, BID PRN, Blade Palm DO Insert peripheral IV, , , Once AND Maintain IV access, , , Until discontinued AND Saline lock IV, , , Once AND sodium chloride 0.9 % flush 10 mL, 10 mL, intravenous, BID AND sodium chloride 0.9 % flush 10 mL, 10 mL, intravenous, PRN, Blade Palm DO traZODone (DESYREL) tablet 50 mg, 50 mg, oral, Nightly PRN, Blade Palm DO Current Outpatient Medications: acetaminophen (TYLENOL) 500 mg tablet, Take 2 tablets (1,000 mg total) by mouth every 6 (six) hoursif needed for mild pain., Disp: , Rfl: amLODIPine (NORVASC) 10 mg tablet, TAKE 1 TABLET BY MOUTH EVERY DAY (Patient taking differently: Take 1 tablet (10 mg total) by mouth 1 (one) time each day.), Disp: 90 tablet, Rfl: 3 atorvastatin (LIPITOR) 10 mg tablet, TAKE 1 TABLET BY MOUTH EVERY DAY (Patient taking differently: Take 1 tablet (10 mg total) by mouth 1 (one) time each day.), Disp: 90 tablet, Rfl: 3 cholecalciferol (VITAMIN D-3) 1,250 mcg (50,000 unit) capsule, Take 1 capsule (50,000 Units total) by mouth 1 (one) time per week., Disp: 12 capsule, Rfl: 2 levothyroxine (SYNTHROID, LEVOTHROID) 88 mcg tablet, Take 1 tablet (88 mcg total) by mouth 1 (one) time each day., Disp: 90 each, Rfl: 3 melatonin 3 mg tablet, Take 2 tablets (6 mg total) by mouth at bedtime., Disp: , Rfl: 0 metoprolol tartrate (LOPRESSOR) 50 mg tablet, TAKE 1 TABLET BY MOUTH TWICE A DAY (Patient taking differently: Take 1 tablet (50 mg total) by mouth 2 (two) times a day.), Disp: 60 tablet, Rfl: 2 omeprazole (PriLOSEC) [address] capsule, TAKE 1 CAPSULE BY MOUTH 1 TIME EACH DAY. DO NOT CRUSH OR CHEW. (Patient taking differently: Take 1 capsule (20 mg total) by mouth 1 (one) time each day.), Disp: 90 capsule, Rfl: 1 oxyCODONE (OXY-IR) 5 mg immediate release capsule, Take 1 capsule (5 mg total) by mouth every 6 (six) hours if needed for severe pain., Disp: , Rfl: senna (SENOKOT) 8.6 mg tablet, Take 1 tablet (8.6 mg total) by mouth 2 (two) times a day., Disp: 60each, Rfl: 0 traZODone (DESYREL) 50 mg tablet, Take 1 tablet (50 mg total) by mouth at bedtime as needed for sleep., Disp: , Rfl: Radiology/Diagnostics CT Cervical Spine w Contrast Narrative: EXAMINATION TYPE: CT CERVICAL SPINE W CONTRAST, CT THORACIC SPINE W CONTRAST DATE OF EXAM ORDERED: 12/01/2022 10:12 PM HISTORY: post-op infection concern, recent thoracic lower cervical surgery on 11/11. Drainage from surgical wound, CONTRAST USED: 100 mL ISOVUE-300 COMPARISON: CT thoracic spine 11/11/2022, MRI cervical and thoracic spine 11/10/2022 TECHNIQUE: Contiguous axial, coronal and sagittal images were obtained through the cervical and thoracic spine following intravenous contrast administration. FINDINGS: CT CERVICAL SPINE: Skull base is intact. Atlantoaxial joint is unremarkable. There is convex left scoliosis noted. The vertebrae are otherwise normally aligned. No acute cervical fracture is seen. Disc spaces well-preserved from C2-3 through C4-5. At C5-6 again noted is bulging disc and osteophyte complex without significant spinal stenosis. At C6-7 there is also mild bulging the disc with no significant spinal stenosis. Again noted are changes of posterior instrumented fixation with spinal rods and pedicle screws in the C7 and T1 vertebrae as well as the T3 and T4 vertebrae without acute complication. Destructive changes and severe compression of the T2 vertebral body again noted. Surgical drain is been removed and overlying skin deborah of the lower cervical and thoracic region remain in place. There has been interval development of a large fluid collection in the posterior soft tissues overlying the surgicalbed measuring approximately 7 cm in cephalocaudal length maximum transverse diameter of 6.2 cm AP by 11.2 cm transverse on image one series 8 overlying the lower cervical and upper thoracic vertebralbodies, this collection does not communicate with the thecal sac and is likely a large postoperative seroma, it contains no air bubbles to suggest an abscess which is less likely. There is no associated wall enhancement of this fluid collection. Surrounding subcutaneous edema is noted. CT THORACIC SPINE: Severe compression pathologic fracture deformity of the T7 vertebral body has progressed since the prior exam now with vertebral plana deformity. Extensive destructive changes of this vertebra extending into the left-sided pedicle are noted. No obvious enhancing tumor noted within the spinal canal.There is 5 mm of retropulsion of the posterior inferior corner of this fractured vertebral body into the spinal canal noted narrowing of the midline thecal sac diameter to 6 mm with some mild compression of the right thoracic spinal cord not seen on the prior exam. It is difficult to estimate extent of any epidural tumor that may be present at this level. Remaining vertebrae demonstrate no compression fractures, with diffuse marrow abnormalities consistent with metastatic disease.. No other significant spinal stenosis is seen. Impression: 1. Interval progression of severe pathologic fracture of the T7 vertebral body now withvertebral plana, extensive destructive changes including the left-sided pedicle. Interval development of 5 mm of retropulsion of the bone fragment into the spinal canal to the right of midline now with mild compression of the right thoracic spinal cord not seen on the prior exam with 6 mm midline AP thecal sac diameter. 2. Postoperative changes of posterior instrumented fixation from C7 to T4 as noted on 11/11/2022 bridging pathologic fracture at the T2 level. New superficial fluid collection in the posterior soft tissues overlying the surgical bed without communication with the thecal sac likely a postoperative se leonard measuring 6 x 11 x 7 cm, this is unlikely to represent an abscess. CRITICAL DOCUMENT ONLY finding communicated directly to Marcello Fisher and documented in the [employer] system on 12/02/2022 12:31 AM, Message ID [id number]. -------- FINAL REPORT -------- Dictated By: Ricky Walters Dictated Date: 12/02/2022 00:09 Assigned Physician: Ricky Walters Reviewed and Electronically Signed By: Ricky Walters Signed Date: 12/02/2022 00:32 Workstation ID: [id number] Transcribed By: Self Edit Transcribed Date: 12/02/2022 00:09 CT Thoracic Spine w Contrast Narrative: EXAMINATION TYPE: CT CERVICAL SPINE W CONTRAST, CT THORACIC SPINE W CONTRAST DATE OF EXAM ORDERED: 12/01/2022 10:12 PM HISTORY: post-op infection concern, recent thoracic lower cervical surgery on 11/11. Drainage from surgical wound, CONTRAST USED: 100 mL ISOVUE-300 COMPARISON: CT thoracic spine 11/11/2022, MRI cervical and thoracic spine 11/10/2022 TECHNIQUE: Contiguous axial, coronal and sagittal images were obtained through the cervical and thoracic spine following intravenous contrast administration. FINDINGS: CT CERVICAL SPINE: Skull base is intact. Atlantoaxial joint is unremarkable. There is convex left scoliosis noted. The vertebrae are otherwise normally aligned. No acute cervical fracture is seen. Disc spaces well-preserved from C2-3 through C4-5. At C5-6 again noted is bulging disc and osteophyte complex without significant spinal stenosis. At C6-7 there is also mild bulging the disc with no significant spinal stenosis. Again noted are changes of posterior instrumented fixation with spinal rods and pedicle screws in the C7 and T1 vertebrae as well as the T3 and T4 vertebrae without acute complication. Destructive changes and severe compression of the T2 vertebral body again noted. Surgical drain is been removed and overlying skin deborah of the lower cervical and thoracic region remain in place. There has been interval development of a large fluid collection in the posterior soft tissues overlying the surgicalbed measuring approximately 7 cm in cephalocaudal length maximum transverse diameter of 6.2 cm AP by 11.2 cm transverse on image one series 8 overlying the lower cervical and upper thoracic vertebralbodies, this collection does not communicate with the thecal sac and is likely a large postoperative seroma, it contains no air bubbles to suggest an abscess which is less likely. There is no associated wall enhancement of this fluid collection. Surrounding subcutaneous edema is noted. CT THORACIC SPINE: Severe compression pathologic fracture deformity of the T7 vertebral body has progressed since the prior exam now with vertebral plana deformity. Extensive destructive changes of this vertebra extending into the left-sided pedicle are noted. No obvious enhancing tumor noted within the spinal canal.There is 5 mm of retropulsion of the posterior inferior corner of this fractured vertebral body into the spinal canal noted narrowing of the midline thecal sac diameter to 6 mm with some mild compression of the right thoracic spinal cord not seen on the prior exam. It is difficult to estimate extent of any epidural tumor that may be present at this level. Remaining vertebrae demonstrate no compression fractures, with diffuse marrow abnormalities consistent with metastatic disease.. No other significant spinal stenosis is seen. Impression: 1. Interval progression of severe pathologic fracture of the T7 vertebral body now withvertebral plana, extensive destructive changes including the left-sided pedicle. Interval development of 5 mm of retropulsion of the bone fragment into the spinal canal to the right of midline now with mild compression of the right thoracic spinal cord not seen on the prior exam with 6 mm midline AP thecal sac diameter. 2. Postoperative changes of posterior instrumented fixation from C7 to T4 as noted on 11/11/2022 bridging pathologic fracture at the T2 level. New superficial fluid collection in the posterior soft tissues overlying the surgical bed without communication with the thecal sac likely a postoperative se leonard measuring 6 x 11 x 7 cm, this is unlikely to represent an abscess. CRITICAL DOCUMENT ONLY finding communicated directly to Marcello Fisher DO and documented in the [employer] system on 12/02/2022 12:31 AM, Message ID [id number]. -------- FINAL REPORT -------- Dictated By: Ricky Walters Dictated Date: 12/02/2022 00:09 Assigned Physician: Ricky Walters Reviewed and Electronically Signed By: Ricky Walters Signed Date: 12/02/2022 00:32 Workstation ID: [id number] Transcribed By: Self Edit Transcribed Date: 12/02/2022 00:09 Labs No new labs to review * Marcello FisherDO - 12/01/2022 5:42 PM EST Images from the original note were not included. Armand Barron is a 67 y.o. male With a history of cervical and thoracic spine surgery in mid October 2022 with neurosurgery while at [facility] for compression fractures in his neck. Patient was sent in from his ECF today he was going to have his sutures removed and there were concern for wound infection. Patient denies any systemic symptoms such as fevers or chills no nausea or vomiting. REVIEW OF SYSTEMS: A ten point review of systems was conducted and was negative aside from as notedin the HPI and/or in other provider documentation. Past Medical History: Diagnosis Date Cord compression (CMS/HCC) 11/10/2022 T2-T7 cord compression Vanegas catheter in place 11/10/2022 Hypercholesteremia Hypertension Hypothyroidism Multiple myeloma (CMS/HCC) 2022 Stapled skin wound 2022 thoracic spine Vitamin deficiency Past Surgical History: Procedure Laterality Date CHOLECYSTECTOMY 09/27/1989 SPINAL CORD DECOMPRESSION 11/11/2022 Fusion Decompression T8-T9, T2 tumor removal, T2-T7 spinal cord compression No Known Allergies Social History Socioeconomic History Marital status: Single Spouse name: Not on file Number of children: Not on file Years of education: Not on file Highest education level: Not on file Occupational History Not on file Tobacco Use Smoking status: Never Smokeless tobacco: Never Vaping Use Vaping Use: Never used Substance and Sexual Activity Alcohol use: Yes Alcohol/week: 2.0 standard drinks Types: 2 Cans of beer per week Drug use: Never Sexual activity: Not on file Other Topics Concern Not on file Social History Narrative Not on file Home Medications acetaminophen (TylenoL) 325 mg capsule Take 2 capsules (650 mg total) by mouth every 6 (six) hours if needed for mild pain. amLODIPine (NORVASC) 10 mg tablet TAKE 1 TABLET BY MOUTH EVERY DAY atorvastatin (LIPITOR) 10 mg tablet TAKE 1 TABLET BY MOUTH EVERY DAY cholecalciferol (VITAMIN D-3) 1,250 mcg (50,000 unit) capsule Take 1 capsule (50,000 Units total) by mouth 1 (one) time per week. levothyroxine (SYNTHROID, LEVOTHROID) 88 mcg tablet Take 1 tablet (88 mcg total) by mouth 1 (one) time each day. melatonin 3 mg tablet Take 2 tablets (6 mg total) by mouth at bedtime. metoprolol tartrate (LOPRESSOR) 50 mg tablet TAKE 1 TABLET BY MOUTH TWICE A DAY omeprazole (PriLOSEC) [address] capsule TAKE 1 CAPSULE BY MOUTH 1 TIME EACH DAY. DO NOT CRUSH OR CHEW. oxyCODONE (OXY-IR) 5 mg immediate release capsule Take 1 capsule (5 mg total) by mouth every 6 (six) hours if needed for severe pain. Max Daily Amount: 20 mg senna (SENOKOT) 8.6 mg tablet Take 1 tablet (8.6 mg total) by mouth 2 (two) times a day. traZODone (DESYREL) 50 mg tablet Take 1 tablet (50 mg total) by mouth at bedtime as needed for sleep. Physical Exam Physical Exam Visit Vitals BP 126/77 (BP Location: Right arm, Patient Position: Sitting) Pulse 81 Temp 36.9 C (98.5 F) (Oral) Resp 16 Ht 1.753 m (69) Wt 77.1 kg (170 lb) SpO2 97% BMI 25.10 kg/m Smoking Status Never BSA 1.93 m CONSTITUTIONAL: Well-appearing and well-nourished, NAD EYES: PERRL. EOMI. No conjunctival injection. No icterus. HENT: External ears normal, external nose normal. Mouth and throat clear. Neck supple non-tender. Head atraumatic. RESPIRATORY: Normal chest excursion with respiration. Clear to auscultation, no wheezes. CARDIOVASCULAR: Regular rhythm. No murmurs. No cyanosis. No peripheral edema. GASTROINTESTINAL: Abdomen soft, non-distended, non-tender, no guarding or rigidity. NEUROLOGICAL: Awake, alert and oriented. CN II-XII grossly intact, no extremity weakness or sensorydeficit. BACK: Patient has a midline incision from the lower cervical region to the upper thoracic region but appears slightly dehisced in the central portion with some purulent matter present. Some erythema along the staple lines. No active drainage or surrounding induration or fluctuance. PSYCHOLOGICAL: The patient's mood and manner are appropriate. Grooming and personal hygiene are appropriate. INTEGUMENTARY: Warm and dry. No rash noted. MUSCULOSKELETAL: There are no deformities noted, grossly normal strength. Medical Decision Making Patient is a 67 y.o. male presenting to the ED for evaluation for concern for postoperative infection involving the cervical and thoracic spine after recent surgery in October. I discussed patient case with neurosurgery FREDI on-call who agrees with current plan for CT imaging. Recommended admissionto medicine.. Patient agreeable with that plan. Neurologically patient is at baseline. Differential Diagnosis Considered -: Yes, the differential associated with the patient's presentation includes Postoperative infection involving the cervical and thoracic spinal surgery. Escalation of care including admission/observation considered -: Admission for IV antibiotics and consultation with neurosurgery Discussed management with physician/healthcare provider/other source -: Yes, Medical Doctor Md, discussed Neurosurgery FREDI for further management as well as admission Review of External Record -: Yes: Office record Reviewed patient's medical records. On November 30, 2022 he had a visit with radiation oncology. He has a history of newly diagnosed multiple myeloma as ofOctober 2022 with pathological fractures of T2 and T7 with epidural tumor causing spinal cord c ompression. He underwent thoracic decompression and removal of epidural tumor at T2 and T7 via laminectomy, facetectomy, foraminotomy in addition he underwent posterior thoracic fusion of C7-T4 on November 11, 2022 his surgical wounds at that time appear to be healing well. He had not yet seen his neurosurgeon to remove the deborah. The patient will be receiving systemic therapy for his myeloma TBD at [facility] with the [facility]. Radiation therapy was discussed. Plan to move forward pending once patient has adequate healing and deborah been removed. Clinical Impressions as of 12/01/222226 Infected wound DIAGNOSTIC IMPRESSION: 1. Infected wound DISPOSITION: Admit To Inpatient Marcello Fisher DO 12/01/22 1840 Marcello Fisher DO 12/01/22 1928 Marcello Fisher DO 12/01/22 2227 Marcello Fisher DO 12/01/22 2247 Marcello Fisher DO 12/02/22 0059 Marcello Fisher DO 12/02/22 0212 documented in this encounterBrooke Glen Behavioral [id number] Hospital course Narrative* Sierra Titus, JORJE - 12/09/2022 12:59 PM EDT House supplement with meals * Edyta Quezada RN - 12/03/2022 2:25 PM EST Wound care/dressing changes to mid thoracic surgical wound every 5 days as follows: Remove old dressing and alginate packing from small open area, irrigate the open area with NS, pack the 2 cm deep site of where there was a seroma using the alginate Ag rope packing (in room), cover with a long foambordered dressing. Please date the dressing. documented in this encounterBrooke Glen Behavioral [id number] Hospital Discharge instructions* Discharge Instructions* Liliana Esteban NP - 12/07/2022 9:11 AM EDT Scheduled Future Appointments Provider Specialty Dept Phone Center 12/14/2022 9:30 AM Emanuel Guerra MD; [facility] Radiation Oncology [phone] [facility] 12/15/2022 9:30 AM [facility] [phone] [facility] 12/16/2022 9:30 AM [facility] Radiation Oncology [phone] [facility] 12/17/2022 9:30 AM [facility] Radiation Oncology [phone] [facility] 12/18/2022 9:30 AM Emanuel Guerra MD; [facility] Radiation Oncology [phone] [facility] 01/28/2023 8:30 AM (Arrive by 8:15 AM) Salena Flores NP Family Medicine [phone] [facility] Follow up providers and departments Ish Tao Jr, MD Specialty: Neurosurgery [address] [facility] [address] Next Steps: Follow up in 2 month(s) Instructions: FOLLOW UP WITH DR TAO IN 2 MONTHS - the office will call you to vazquez or you may call the office to schedule No blood thinners at this time unles cleared by your Neurosugeon and Primary doctor You have been cleared for chemical VTE prophylaxis Wound Care has written for Wound Management orders Post discharge care Destination [facility] ([place]) Service: [facility] [address] [facility] [id number] Wound care management. Wound care/dressing changes to mid thoracic surgical wound every 5 days as follows: Remove old dressing and alginate packing from small open area, irrigate the open area with NS, pack the 2 cm deep site of where there was a seroma using the alginate Ag rope packing (in room), cover with a long foam bordered dressing. Please date the dressing. documented in this encounterBrooke Glen Behavioral [id number] Consult note* Edyta Quezada RN - 12/03/2022 2:25 PM EST Images from the original note were not included. Wound Care Initial Consult Visit Date: 12/03/2022 Patient Name: Armand Barron Date of : 1955 Reason for Consult: thoracic surgical wound staple removal and eval for tx Wound History: Patient admit on 12/01/2022 6:07 PM for Infected wound [T14.8XXA, L08.9]. Past medical history includes Past Medical History: Diagnosis Date Cord compression (CMS/HCC) 11/10/2022 T2-T7 cord compression Vanegas catheter in place 11/10/2022 Hypercholesteremia Hypertension Hypothyroidism Multiple myeloma (CMS/HCC) 2022 Stapled skin wound 2022 thoracic spine Vitamin deficiency Pertinent Labs: Albumin Date Value Ref Range Status 11/11/2022 3.7 3.5 - 4.8 g/dL Final Albumin, Serum Date Value Ref Range Status 11/10/2022 4.3 3.5 - 5.0 g/dL Final Albumin (Rel %), Serum Date Value Ref Range Status 11/10/2022 61 % Final WBC Date Value Ref Range Status 12/01/2022 6.6 4.6 - 10.2 K/mcL Final WBC, Urine Date Value Ref Range Status 11/10/2022 20 (H) 0 - 5 /HPF Final Glucose POCT Date Value Ref Range Status 11/11/2022 151 (H) 70 - 99 mg/dL Final Wound Assessment: Wound Incision Back Medial (Active) Wound Image 12/03/22 1346 Wound Bed Tissue Assessment Clean;Fragile 12/03/22 1346 Ritika-Wound Assessment Dry;Clean 12/03/22 1346 Shape Linear 12/03/22 1346 Wound Length (cm) 14 cm 12/03/22 1346 Wound Width (cm) 0.1 cm 12/03/22 1346 Wound Surface Area (cm^2) 1.4 cm^2 12/03/22 1346 Closure [place] 12/03/22 1300 Drainage Description Serous;No odor 12/03/22 1346 Drainage Amount Scant 12/03/22 1346 Treatments Cleansed;Site care 12/03/22 1346 Dressing Foam 12/03/22 1346 Dressing Changed New 12/03/22 1346 Dressing Status Clean;Dry;Intact 12/03/22 1346 State of Healing Closed wound edges 12/03/22 1346 Tunneling 2 cm 12/03/22 1346 Edges Well-defined edges 12/03/22 1346 Number of [place] Removed 40 12/03/22 1346 Support Surface: pressure redistribution mattress Wound Summary Assessment: This nice fellow who works for the [employer] has 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 Neurosurgery performed 11/11/22. Today I am asked to eval for tx recs and to remove deborah. After cleansing the site with Hibiclens I removed 40 deborah with ease. There is a swab tip size hole in the proximal third of the surgical wound that is 2 cm deep. Scant serous drainage, no odor, no redness or purulence noted. This is characteristic of a seroma that is now open and drained. Will allow to heal by secondary intention but to keep site open to prevent sealing off at the surface I have packed it gently with Aquacel Ag strip packing then entire incision is protected with a foam bordered dressing which can be changed every 5 days. This will provide antimicrobial therapy to the open area/absorb and protect from premature closure of wound at the skin level. Extra supplies left in room. Wound Plan: Wound care/dressing changes to mid thoracic surgical wound every 5 days as follows: Remove old dressing and alginate packing from small open area, irrigate the open area with NS, pack the2 cm deep site of where there was a seroma using the alginate Ag rope packing (in room), cover witha long foam bordered dressing. Please date the dressing. Education: with pt on goals of care/tx plan and product properties. 12/03/2022 2:25 PM EST [facility] [id number] Consult note* Edyta Quezada RN - 12/03/2022 2:25 PM EST Images from the original note were not included. Wound Care Initial Consult Visit Date: 12/03/2022 Patient Name: Armand Barron Date of : 1955 Reason for Consult: thoracic surgical wound staple removal and eval for tx Wound History: Patient admit on 12/01/2022 6:07 PM for Infected wound [T14.8XXA, L08.9]. Past medical history includes Past Medical History: Diagnosis Date Cord compression (CMS/HCC) 11/10/2022 T2-T7 cord compression Vanegas catheter in place 11/10/2022 Hypercholesteremia Hypertension Hypothyroidism Multiple myeloma (CMS/HCC) 2022 Stapled skin wound 2022 thoracic spine Vitamin deficiency Pertinent Labs: Albumin Date Value Ref Range Status 11/11/2022 3.7 3.5 - 4.8 g/dL Final Albumin, Serum Date Value Ref Range Status 11/10/2022 4.3 3.5 - 5.0 g/dL Final Albumin (Rel %), Serum Date Value Ref Range Status 11/10/2022 61 % Final WBC Date Value Ref Range Status 12/01/2022 6.6 4.6 - 10.2 K/mcL Final WBC, Urine Date Value Ref Range Status 11/10/2022 20 (H) 0 - 5 /HPF Final Glucose POCT Date Value Ref Range Status 11/11/2022 151 (H) 70 - 99 mg/dL Final Wound Assessment: Wound Incision Back Medial (Active) Wound Image 12/03/22 1346 Wound Bed Tissue Assessment Clean;Fragile 12/03/22 1346 Ritika-Wound Assessment Dry;Clean 12/03/22 1346 Shape Linear 12/03/22 1346 Wound Length (cm) 14 cm 12/03/22 1346 Wound Width (cm) 0.1 cm 12/03/22 1346 Wound Surface Area (cm^2) 1.4 cm^2 12/03/22 1346 Closure [place] 12/03/22 1300 Drainage Description Serous;No odor 12/03/22 1346 Drainage Amount Scant 12/03/22 1346 Treatments Cleansed;Site care 12/03/22 1346 Dressing Foam 12/03/22 1346 Dressing Changed New 12/03/22 1346 Dressing Status Clean;Dry;Intact 12/03/22 134 State of Healing Closed wound edges 12/03/22 1346 Tunneling 2 cm 12/03/22 134 Edges Well-defined edges 12/03/22 1346 Number of Deborah Removed 40 12/03/22 134 Support Surface: pressure redistribution mattress Wound Summary Assessment: This nice fellow who works for the [employer] has 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 Neurosurgery performed 11/11/22. Today I am asked to eval for tx recs and to remove deborah. After cleansing the site with Hibiclens I removed 40 deborah with ease. There is a swab tip size hole in the proximal third of the surgical wound that is 2 cm deep. Scant serous drainage, no odor, no redness or purulence noted. This is characteristic of a seroma that is now open and drained. Will allow to heal by secondary intention but to keep site open to prevent sealing off at the surface I have packed it gently with Aquacel Ag strip packing then entire incision is protected with a foam bordered dressing which can be changed every 5 days. This will provide antimicrobial therapy to the open area/absorb and protect from premature closure of wound at the skin level. Extra supplies left in room. Wound Plan: Wound care/dressing changes to mid thoracic surgical wound every 5 days as follows: Remove old dressing and alginate packing from small open area, irrigate the open area with NS, pack the2 cm deep site of where there was a seroma using the alginate Ag rope packing (in room), cover witha long foam bordered dressing. Please date the dressing. Education: with pt on goals of care/tx plan and product properties. 12/03/2022 2:25 PM EST * Louie Chakraborty MD - 12/02/2022 11:12 AM ESTAssociated Order(s): IP CONSULT TO INTERVENTIONAL RADIOLOGY Interventional Radiology Consult to Procedure Order: I have reviewed the Interventional Radiology Consult order for the following minor procedure: Abscess Drainage On review of imaging, labwork, and patient status, the procedure is acceptable to be performed. Given the nature of the procedure, no formal consult is required. Please see our preprocedure/sedation note for further details. No charge should be entered to the patient for the IR consult. * JEFFERY Gutierrez - 12/01/2022 7:12 PM ESTAssociated Order(s): IP CONSULT TO NEUROSURGERY Neurosurgery Initial Consultation Note Patient: Armand Barron Room: AP-/- Age: 67 y.o. Attending: Marcello Fisher DO Date of Service: 12/01/22 Admit: 12/01/2022 PCP: Salena Flores NP Assessment/Plan 67 y/o M who presents for incision evaluation S/P C7-T4 posterior fusion by pedicle screw fixation, T2, T7 removal of epidural tumor by laminectomy, facetectomy, foraminotomy by Dr. Tao 11/11/22 -Imaging: CT C/T spine with and without contrast pending per ED -Neuro exams: q4 hour neuro checks -Blood cultures: pending -CRP/Sed rate: pending -Activity /Restrictions: as tolerated -Pain control: per primary -Hold antiplatelet therapy, anticoagulation, NSAIDs, and other medications that may increase the risk of bleeding post operatively Chronic Medical conditions -Per primary service VTE: SCDs only Endocrine: Maintain CBG < 180 - management per primary Disposition: -Admit to: medicine -Follow-up on labs/imaging JEFFERY Gutierrez Please call [phone] (1) with any further questions or concerns. Chief complaint Chief Complaint Patient presents with Post-op Problem Patient had back surgery at [facility]. Facility attempted to take stables out today but felt wound did not appear to be healing appropriately and had a lot of drainage. Patient was advised to come to [facility] not [facility]. MANOJ Acuna is a 67 y.o. male. he presented to the hospital 12/01/2022 secondary to Post-op Problem (Patient had back surgery at [facility]. Facility attempted to take stables out today but felt wound did not appear to be healing appropriately and had a lot of drainage. Patient was advised to come to [facility] not [facility]. ) He has a history of multiple myeloma who presented mid October 2022 with pathologic fractures of T2 and T7 with epidural tumor causing spinal cord compression. He underwent thoracic decompression and removal of epidural tumor at T2 and T7 by lamiectomy, facetectomy, and foraminotomy; posterior thoracic fusion C7-T4 on 11/11/22. Patient saw his radiation oncologist yesterday, 11/30, who recommended post-operative radiotherapy. He wanted patient to see his neurosurgeon to ensure he had adequate healing and have his deborah removed. Today, 12/01, at his facility, they were concerned about the healing of the incision so they brought patient to [facility] ED for further evaluation. Patient states he was doing well after surgery until he developed a fever of 102 degrees F , 11/26, evening. He denies nausea, vomiting, radicular pain in his extremities, abdominal pain, diarrhea, chest pain,shortness of breath. No home anticoagulation or antiplatelet medications. ROS Review of Systems Constitutional: Positive for fever. All other systems reviewed and are negative. Past Medical History Past Medical History: Diagnosis Date Cord compression (CMS/HCC) 11/10/2022 T2-T7 cord compression Vanegas catheter in place 11/10/2022 Hypercholesteremia Hypertension Hypothyroidism Multiple myeloma (CMS/HCC) 2022 Stapled skin wound 2022 thoracic spine Vitamin deficiency [facility] Surgical History Past Surgical History: Procedure Laterality Date CHOLECYSTECTOMY 09/27/1989 SPINAL CORD DECOMPRESSION 11/11/2022 Fusion Decompression T8-T9, T2 tumor removal, T2-T7 spinal cord compression Social History Social History Substance and Sexual Activity Drug Use Never Medications Allergies: No Known Allergies Home Medications: Current Outpatient Medications Medication Instructions acetaminophen (TYLENOL) 650 mg, oral, Every 6 hours PRN amLODIPine (NORVASC) 10 mg tablet TAKE 1 TABLET BY MOUTH EVERY DAY atorvastatin (LIPITOR) 10 mg tablet TAKE 1 TABLET BY MOUTH EVERY DAY cholecalciferol (VITAMIN D-3) 50,000 Units, oral, Weekly levothyroxine (SYNTHROID, LEVOTHROID) 88 mcg, oral, Daily melatonin 6 mg, oral, Nightly metoprolol tartrate (LOPRESSOR) 50 mg tablet TAKE 1 TABLET BY MOUTH TWICE A DAY omeprazole (PriLOSEC) [address] capsule TAKE 1 CAPSULE BY MOUTH 1 TIME EACH DAY. DO NOT CRUSH OR CHEW. oxyCODONE (OXY-IR) 5 mg, oral, Every 6 hours PRN senna (SENOKOT) 8.6 mg, oral, 2 times daily traZODone (DESYREL) 50 mg, oral, Nightly PRN Current Medications: No current facility-administered medications for this encounter. Current Outpatient Medications: acetaminophen (TylenoL) 325 mg capsule, Take 2 capsules (650 mg total) by mouth every 6 (six) hoursif needed for mild pain., Disp: , Rfl: amLODIPine (NORVASC) 10 mg tablet, TAKE 1 TABLET BY MOUTH EVERY DAY, Disp: 90 tablet, Rfl: 3 atorvastatin (LIPITOR) 10 mg tablet, TAKE 1 TABLET BY MOUTH EVERY DAY, Disp: 90 tablet, Rfl: 3 cholecalciferol (VITAMIN D-3) 1,250 mcg (50,000 unit) capsule, Take 1 capsule (50,000 Units total) by mouth 1 (one) time per week., Disp: 12 capsule, Rfl: 2 levothyroxine (SYNTHROID, LEVOTHROID) 88 mcg tablet, Take 1 tablet (88 mcg total) by mouth 1 (one) time each day., Disp: 90 each, Rfl: 3 melatonin 3 mg tablet, Take 2 tablets (6 mg total) by mouth at bedtime., Disp: , Rfl: 0 metoprolol tartrate (LOPRESSOR) 50 mg tablet, TAKE 1 TABLET BY MOUTH TWICE A DAY, Disp: 60 tablet, Rfl: 2 omeprazole (PriLOSEC) [address] capsule, TAKE 1 CAPSULE BY MOUTH 1 TIME EACH DAY. DO NOT CRUSH OR CHEW., Disp: 90 capsule, Rfl: 1 oxyCODONE (OXY-IR) 5 mg immediate release capsule, Take 1 capsule (5 mg total) by mouth every 6 (six) hours if needed for severe pain. Max Daily Amount: 20 mg, Disp: , Rfl: senna (SENOKOT) 8.6 mg tablet, Take 1 tablet (8.6 mg total) by mouth 2 (two) times a day., Disp: 60each, Rfl: 0 traZODone (DESYREL) 50 mg tablet, Take 1 tablet (50 mg total) by mouth at bedtime as needed for sleep., Disp: , Rfl: Objective Vitals: 12/01/22 1814 BP: Pulse: Resp: Temp: SpO2: 97% Mental Status: Alert & oriented x 4 Language: Speech is fluent, non-dysarthric, able to follow commands Fund of knowledge: aware of current events, vocabulary is normal Sensation: Sensory exam completed: grossly intact to light touch Motor: Muscle strength was assessed in all extremities BUE grasp/biceps/triceps/deltoid = 5/5 BLE DF/KF/KE/HF/HE = 0/5, PF = 1/5 Reflexes: Positive right Tyson's. GI: Abdomen soft, nontender Pulmonary: Respirations are regular and unlabored Incision: Well approximated with deborah. Mild surrounding erythema. No active drainage noted. Radiology No new imaging to review at this time. CT C and T Spine pending with and without contrast pending Labs No new labs to review at this time. CBC, BMP, ESR, CRP, Blood cultures pending documented in this [facility]03-08-2023 Consult note* Louie Chakraborty MD - 12/02/2022 11:12 AM ESTAssociated Order(s): IP CONSULT TO INTERVENTIONAL RADIOLOGY Interventional Radiology Consult to Procedure Order: I have reviewed the Interventional Radiology Consult order for the following minor procedure: Abscess Drainage On review of imaging, labwork, and patient status, the procedure is acceptable to be performed. Given the nature of the procedure, no formal consult is required. Please see our preprocedure/sedation note for further details. No charge should be entered to the patient for the IR consult. [email or web address] Phone: [phone] Note At the T7 level, there has been progression of a severe compression fracture and retropulsion of bony fragments into the spinal canal. Posterior decompression has been performed at this level. There is compression of the cord at this level with increased cord signal intensity as above. The overall extent of cord compression at this level is decreased compared to the prior postoperative examination from 11/10/2022. Resection of the previously noted mass at the T2 level. There is a small residual enhancing tissue in the left T2-T3 neural foramen, which may represent granulation tissue or an element of residual mass. Cord compression in this area has improved. Enhancing masses in the T10 and T11 vertebral bodies, not significantly changed. In the posterior paraspinal soft tissues, there is a large fluid collection at the midline and slightly right of midline, which extends from approximately the C5 level to the T8 level. There is some extension of the fluid collection to the laminectomy defects at T2 and T7. Some peripheral enhancement is present. This may represent a postoperative seroma, however, sterility is not confirmed. Clinical correlation is recommended. -------- FINAL REPORT -------- Dictated By: Shay Dallas Dictated Date: 12/02/2022 07:20 Assigned Physician: Shay Dallas Reviewed and Electronically Signed By: Shay Dallas Signed Date: 12/02/2022 07:48 Workstation ID: [id number] Transcribed By: Self Edit Transcribed Date: 12/02/2022 07:20 [id number] Note At the T7 level, there has been progression of a severe compression fracture and retropulsion of bony fragments into the spinal canal. Posterior decompression has been performed at this level. There is compression of the cord at this level with increased cord signal intensity as above. The overall extent of cord compression at this level is decreased compared to the prior postoperative examination from 11/10/2022. Resection of the previously noted mass at the T2 level. There is a small residual enhancing tissue in the left T2-T3 neural foramen, which may represent granulation tissue or an element of residual mass. Cord compression in this area has improved. Enhancing masses in the T10 and T11 vertebral bodies, not significantly changed. In the posterior paraspinal soft tissues, there is a large fluid collection at the midline and slightly right of midline, which extends from approximately the C5 level to the T8 level. There is some extension of the fluid collection to the laminectomy defects at T2 and T7. Some peripheral enhancement is present. This may represent a postoperative seroma, however, sterility is not confirmed. Clinical correlation is recommended. -------- FINAL REPORT -------- Dictated By: Shay Dallas Dictated Date: 12/02/2022 07:20 Assigned Physician: Shay Dallas Reviewed and Electronically Signed By: Shay Dallas Signed Date: 12/02/2022 07:48 Workstation ID: [id number] Transcribed By: Self Edit Transcribed Date: 12/02/2022 07:20 [id number] Note 1. Interval progression of severe pathologic fracture of the T7 vertebral body now with vertebral plana, extensive destructive changes including the left-sided pedicle. Interval development of 5 mm of retropulsion of the bone fragment into the spinal canal to the right of midline now with mild compression of the right thoracic spinal cord not seen on the prior exam with 6 mm midline AP thecal sac diameter. 2. Postoperative changes of posterior instrumented fixation from C7 to T4 as noted on 11/11/2022 bridging pathologic fracture at the T2 level. New superficial fluid collection in the posterior soft tissues overlying the surgical bed without communication with the thecal sac likely a postoperative se leonard measuring 6 x 11 x 7 cm, this is unlikely to represent an abscess. CRITICAL DOCUMENT ONLY finding communicated directly to Marcello Fisher DO and documented in the [employer] system on 12/02/2022 12:31 AM, Message ID [id number]. -------- FINAL REPORT -------- Dictated By: Rciky Walters Dictated Date: 12/02/2022 00:09 Assigned Physician: Ricky Walters Reviewed and Electronically Signed By: Ricky Walters Signed Date: 12/02/2022 00:32 Workstation ID: [id number] Transcribed By: Self Edit Transcribed Date: 12/02/2022 00:09 [id number] Note 1. Interval progression of severe pathologic fracture of the T7 vertebral body now with vertebral plana, extensive destructive changes including the left-sided pedicle. Interval development of 5 mm of retropulsion of the bone fragment into the spinal canal to the right of midline now with mild compression of the right thoracic spinal cord not seen on the prior exam with 6 mm midline AP thecal sac diameter. 2. Postoperative changes of posterior instrumented fixation from C7 to T4 as noted on 11/11/2022 bridging pathologic fracture at the T2 level. New superficial fluid collection in the posterior soft tissues overlying the surgical bed without communication with the thecal sac likely a postoperative se leonard measuring 6 x 11 x 7 cm, this is unlikely to represent an abscess. CRITICAL DOCUMENT ONLY finding communicated directly to Marcello Fisher DO and documented in the [employer] system on 12/02/2022 12:31 AM, Message ID [id number]. -------- FINAL REPORT -------- Dictated By: Ricky Walters Dictated Date: 12/02/2022 00:09 Assigned Physician: Ricky Walters Reviewed and Electronically Signed By: Ricky Walters Signed Date: 12/02/2022 00:32 Workstation ID: [id number] Transcribed By: Self Edit Transcribed Date: 12/02/2022 00:09 [id number] Miscellaneous Notes* ED Bed Hold Note - Mercy Mahan RN - 12/01/2022 11:16 PM EST Bed: AP-29 Expected date: Expected time: Means of arrival: Comments: Winston F * ED Bed Hold Note - Romie Baeza EMT-P - 12/01/2022 6:07 PM EST Bed: AP-HF Expected date: Expected time: Means of arrival: Comments: Medic documented in this encounterBrooke Glen Behavioral [id number] Note* ED Bed Hold Note - Mercy Mahan RN - 12/01/2022 11:16 PM EST Bed: [facility] Expected date: Expected time: Means of arrival: Comments: Winston Ceron [id number] History and physical note* Nohemi Winters NP - 12/01/2022 11:13 PM EST Images from the original note were not included. History and Physical Date of Admission 12/01/2022 PCP Salena Flores NP Chief Complaint/Visit Reason Concern for infection at incision site History Of Present Illness Armand Barron is a 67 y.o. male with past medical history of hypertension, hyperlipidemia, hypothyroidism, GERD, and recent diagnosis of multiple myeloma with T2 and T7 pathological fractures with epidural tumor and subsequent cord compression. He underwent thoracic decompression and removal of T2and T7 epidural tumor by laminectomy, facetectomy, and foraminotomy as well as posterior thoracic fusion of C7-T4 by screw fixation on 11/11/[address] Tao. He was brought into [facility] emergency department on 12/01/2022 for evaluation of his posterior neck incision. He has been convalescing at his ECF. He tells me that he has been doing fairly well working with physical therapy and he is getting some movement back in his legs, but very little. He reports 1 episode of fever on Wednesday and other than that has not had any fevers, cough, or chills. He denies any shortness of breath or chestpain. Denies abdominal pain, nausea, vomiting, diarrhea. He tells me his constipation is much better than prior. He still does have a Vanegas catheter. He has established with [facility] and was to start radiation tomorrow. Today he was to have his deborah removed, however there was concern for infection given significantdrainage and erythema to the site and he was brought to the ED for evaluation. In the ED, he is afebrile. Hemodynamically stable. Upon laboratory review, potassium is 3.5. No acute kidney injury. No leukocytosis or elevated lactate. Inflammatory markers are elevated. CT of cervical and thoracic spine have been ordered. Blood cultures are drawn. Neurosurgery has been consulted. Admission is requested and CIC is called to see the patient. Review of Systems All other systems reviewed and are negative. Past Medical History: Diagnosis Date Cord compression (CMS/HCC) 11/10/2022 T2-T7 cord compression Vanegas catheter in place 11/10/2022 Hypercholesteremia Hypertension Hypothyroidism Multiple myeloma (CMS/HCC) 2022 Stapled skin wound 2022 thoracic spine Vitamin deficiency Past Surgical History: Procedure Laterality Date CHOLECYSTECTOMY 09/27/1989 SPINAL CORD DECOMPRESSION 11/11/2022 Fusion Decompression T8-T9, T2 tumor removal, T2-T7 spinal cord compression Family History Problem Relation Name Age of Onset Other (hypertensive disorder) Mother Other (malignant lymphoma) Mother Malig Hypertension Mother Other (hypertensive disorder) Father Other (hypertensive disorder) Brother Social History Tobacco Use Smoking status: Never Smokeless tobacco: Never Vaping Use Vaping Use: Never used Substance Use Topics Alcohol use: Yes Alcohol/week: 2.0 standard drinks Types: 2 Cans of beer per week Drug use: Never Allergies No Known Allergies Home Medications Current Outpatient Medications Medication Instructions acetaminophen (TYLENOL) 1,000 mg, oral, Every 6 hours PRN amLODIPine (NORVASC) 10 mg tablet TAKE 1 TABLET BY MOUTH EVERY DAY atorvastatin (LIPITOR) 10 mg tablet TAKE 1 TABLET BY MOUTH EVERY DAY cholecalciferol (VITAMIN D-3) 50,000 Units, oral, Weekly levothyroxine (SYNTHROID, LEVOTHROID) 88 mcg, oral, Daily melatonin 6 mg, oral, Nightly metoprolol tartrate (LOPRESSOR) 50 mg tablet TAKE 1 TABLET BY MOUTH TWICE A DAY omeprazole (PriLOSEC) [address] capsule TAKE 1 CAPSULE BY MOUTH 1 TIME EACH DAY. DO NOT CRUSH OR CHEW. oxyCODONE (OXY-IR) 5 mg, oral, Every 6 hours PRN senna (SENOKOT) 8.6 mg, oral, 2 times daily traZODone (DESYREL) 50 mg, oral, Nightly PRN Vitals and Physical Exam Patient Vitals for the past 24 hrs: BP Temp Temp src Pulse Resp SpO2 Height Weight 12/01/22 1814 -- -- -- -- -- 97 % -- -- 12/01/22 1810 126/77 36.9 C (98.5 F) Oral 81 16 97 % 1.753 m (69) 77.1 kg (170 lb) Body mass index is 25.1 kg/m . No intake or output data in the 24 hours ending 12/01/22 2313 Physical Exam Vitals reviewed. HENT: Head: Normocephalic. Nose: No congestion. Mouth/Throat: Mouth: Mucous membranes are dry. Eyes: General: Right eye: No discharge. Left eye: No discharge. Neck: Comments: Lower cervical and upper thoracic incision with deborah present. Incision somewhat with minimal drainage. Erythema surrounding incision. No pain. Cardiovascular: Rate and Rhythm: Normal rate and regular rhythm. Pulses: Normal pulses. Pulmonary: Effort: Pulmonary effort is normal. Abdominal: General: Bowel sounds are normal. Palpations: Abdomen is soft. Tenderness: There is no abdominal tenderness. Comments: Mild distention Genitourinary: Comments: Vanegas catheter noted with dark yellow urine Musculoskeletal: Right lower leg: Edema present. Left lower leg: Edema present. Skin: General: Skin is warm and dry. Capillary Refill: Capillary refill takes 2 to 3 seconds. Coloration: Skin is pale. Neurological: Mental Status: He is alert and oriented to person, place, and time. Comments: Bilateral lower extremity 0/5. Sensation intact. Psychiatric: Mood and Affect: Mood normal. Recent Lab Results: Admission on 12/01/2022 Component Date Value Ref Range Status Sodium 12/01/2022 135 (L) 136 - 145 mmol/L Final Potassium 12/01/2022 3.5 (L) 3.6 - 5.1 mmol/L Final Chloride 12/01/2022 99 98 - 107 mmol/L Final CO2 12/01/2022 28 22 - 32 mmol/L Final Anion Gap 12/01/2022 8 6 - 18 Final Glucose 12/01/2022 118 (H) 70 - 99 mg/dL Final BUN 12/01/2022 18 8 - 20 mg/dL Final Creatinine 12/01/2022 0.54 (L) 0.60 - 1.30 mg/dL Final eGFR 12/01/2022 111 >=60 mL/min/1.73m2 Final Effective July 05, 2022, calculation based on the Chronic Kidney Disease Epidemiology Collaboration (CKD-EPI) equation refit without adjustment for race. BUN/Creatinine Ratio 12/01/2022 33.3 (H) 12.0 - 20.0 Final Calcium 12/01/2022 8.4 (L) 8.9 - 10.3 mg/dL Final WBC 12/01/2022 6.6 4.6 - 10.2 K/mcL Final RBC 12/01/2022 3.46 (L) 4.30 - 5.70 M/mcL Final Hemoglobin 12/01/2022 10.5 (L) 13.5 - 17.5 g/dL Final Hematocrit 12/01/2022 32.2 (L) 39.0 - 49.0 % Final MCV 12/01/2022 93.1 80.0 - 97.0 FL Final MCH 12/01/2022 30.3 27.0 - 34.0 pcg Final MCHC 12/01/2022 32.6 30.8 - 35.3 g/dL Final RDW 12/01/2022 13.6 11.0 - 14.8 % Final Platelets 12/01/2022 167 142 - 424 K/mcL Final MPV 12/01/2022 9.7 6.2 - 12.1 FL Final Sed Rate 12/01/2022 89 (H) 0 - 15 mm/hr Final C-Reactive Protein 12/01/2022 13.2 (H) 0.0 - 1.0 mg/dL Final Lactate 12/01/2022 0.8 0.5 - 2.0 mmol/L Final Extra Tube 12/01/2022 Hold for add-ons. Final Auto resulted. Neutrophils % 12/01/2022 81.0 (H) 38.1 - 75.5 % Final Lymphocytes % 12/01/2022 13.0 (L) 17.9 - 49.6 % Final Monocytes % 12/01/2022 2.0 0.0 - 12.0 % Final Eosinophils % 12/01/2022 4.0 0.0 - 7.0 % Final Neutrophils Absolute 12/01/2022 5.35 1.80 - 7.70 K/mcL Final Lymphocytes Absolute 12/01/2022 0.86 (L) 1.00 - 4.80 K/mcL Final Monocytes Absolute 12/01/2022 0.13 0.00 - 0.90 K/mcL Final Eosinophils Absolute 12/01/2022 0.26 0.00 - 0.70 K/mcL Final Polychromasia Present 12/01/2022 1+ (A) (none) Final Echinocyte/Kemmerer Cells Present 12/01/2022 Present (A) (none) Final Elliptocytes/Ovalocytes Present 12/01/2022 Present (A) (none) Final Total Counted 12/01/2022 100 Final Recent Imaging Findings: XR Abdomen 1 View Addendum: EXAMINATION TYPE: XR ABDOMEN 1 VIEW DATE OF EXAM: 11/14/2022 11:20 PM HISTORY: Abd pain, unspecified. COMPARISON PLAIN FILM: NONE FINDINGS: No bowel dilatation. There is a large amount of colonic stool. Cholecystectomy clips are noted. Theosseous structures are grossly intact. IMPRESSION: No bowel dilatation. A large amount of colonic stool is noted. -------- FINAL REPORT -------- Dictated By: Andrey Perkins Dictated Date: 11/15/2022 00:06 Assigned Physician: Andrey Perkins Reviewed and Electronically Signed By: Andrey Perkins Signed Date: 11/15/2022 00:09 Workstation ID: [id number] Transcribed By: Self Edit Transcribed Date: 11/15/2022 00:06 -------- FINAL REPORT -------- Dictated By: Andrey Perkins Dictated Date: 11/15/2022 00:06 Assigned Physician: Andrey Perkins Reviewed and Electronically Signed By: Andrey Perkins Signed Date: 11/15/2022 00:09 Workstation ID: [id number] Transcribed By: Self Edit Transcribed Date: 11/15/2022 00:06 Narrative: EXAMINATION TYPE: XR ABDOMEN 1 VIEW DATE OF EXAM: 11/14/2022 11:20 PM HISTORY: Abd pain, unspecified. COMPARISON PLAIN FILM: NONE FINDINGS: No bowel dilatation. There is a large amount of colonic stool. Cholecystectomy clips are noted. Theosseous structures are grossly intact. Impression: No bowel dilatation. A large amount of colonic stool is noted. -------- FINAL REPORT -------- Dictated By: Andrey Perkins Dictated Date: 11/15/2022 00:06 Assigned Physician: Andrey Perkins Reviewed and Electronically Signed By: Andrey Perkins Signed Date: 11/15/2022 00:09 Workstation ID: [id number] Transcribed By: Self Edit Transcribed Date: 11/15/2022 00:06 Impression: This patient is a 67-year-old male with past medical history of hypertension, hyperlipidemia, hypothyroidism, GERD, and recent diagnosis of multiple myeloma with T2 and T7 pathological fractures withepidural tumor and subsequent cord compression. He underwent thoracic decompression and removal of T2 and T7 epidural tumor by laminectomy, facetectomy, and foraminotomy as well as posterior thoracicfusion of C7-T4 by screw fixation on 11/11/[address] Tao. He has been convalescing at his ECF. Diagnoses: Suspected postoperative wound infection Multiple myeloma with T2 and T7 pathological fractures with epidural tumor status post C7-T4 posterior thoracic fusion with fixation and removal of epidural tumor with laminectomy, facetectomy, and foraminotomy by Dr. 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 Follow-up blood cultures. CT of cervical and thoracic spine pending Pain medication as needed PT/OT Will change Vanegas catheter here Home medications resumed Monitor daily labs Diet as tolerated DVT prophylaxis: SCDs Code Status: Patient would like to be full code Disposition: To be determined Nohemi Winters NP [facility] ([facility]) [email or web address] Phone: [phone] History and physical note* Nohemi Winters NP - 12/01/2022 11:13 PM EST Images from the original note were not included. History and Physical Date of Admission 12/01/2022 PCP Salena Flores NP Chief Complaint/Visit Reason Concern for infection at incision site History Of Present Illness Armand Barron is a 67 y.o. male with past medical history of hypertension, hyperlipidemia, hypothyroidism, GERD, and recent diagnosis of multiple myeloma with T2 and T7 pathological fractures with epidural tumor and subsequent cord compression. He underwent thoracic decompression and removal of T2and T7 epidural tumor by laminectomy, facetectomy, and foraminotomy as well as posterior thoracic fusion of C7-T4 by screw fixation on 11/11/[address] Tao. He was brought into [facility] emergency department on 12/01/2022 for evaluation of his posterior neck incision. He has been convalescing at his ECF. He tells me that he has been doing fairly well working with physical therapy and he is getting some movement back in his legs, but very little. He reports 1 episode of fever on Wednesday and other than that has not had any fevers, cough, or chills. He denies any shortness of breath or chestpain. Denies abdominal pain, nausea, vomiting, diarrhea. He tells me his constipation is much better than prior. He still does have a Vanegas catheter. He has established with [facility] and was to start radiation tomorrow. Today he was to have his deborah removed, however there was concern for infection given significantdrainage and erythema to the site and he was brought to the ED for evaluation. In the ED, he is afebrile. Hemodynamically stable. Upon laboratory review, potassium is 3.5. No acute kidney injury. No leukocytosis or elevated lactate. Inflammatory markers are elevated. CT of cervical and thoracic spine have been ordered. Blood cultures are drawn. Neurosurgery has been consulted. Admission is requested and [facility]IC is called to see the patient. Review of Systems All other systems reviewed and are negative. Past Medical History: Diagnosis Date Cord compression (CMS/HCC) 11/10/2022 T2-T7 cord compression Vanegas catheter in place 11/10/2022 Hypercholesteremia Hypertension Hypothyroidism Multiple myeloma (CMS/HCC) 2022 Stapled skin wound 2022 thoracic spine Vitamin deficiency Past Surgical History: Procedure Laterality Date CHOLECYSTECTOMY 09/27/1989 SPINAL CORD DECOMPRESSION 11/11/2022 Fusion Decompression T8-T9, T2 tumor removal, T2-T7 spinal cord compression Family History Problem Relation Name Age of Onset Other (hypertensive disorder) Mother Other (malignant lymphoma) Mother Malig Hypertension Mother Other (hypertensive disorder) Father Other (hypertensive disorder) Brother Social History Tobacco Use Smoking status: Never Smokeless tobacco: Never Vaping Use Vaping Use: Never used Substance Use Topics Alcohol use: Yes Alcohol/week: 2.0 standard drinks Types: 2 Cans of beer per week Drug use: Never Allergies No Known Allergies Home Medications Current Outpatient Medications Medication Instructions acetaminophen (TYLENOL) 1,000 mg, oral, Every 6 hours PRN amLODIPine (NORVASC) 10 mg tablet TAKE 1 TABLET BY MOUTH EVERY DAY atorvastatin (LIPITOR) 10 mg tablet TAKE 1 TABLET BY MOUTH EVERY DAY cholecalciferol (VITAMIN D-3) 50,000 Units, oral, Weekly levothyroxine (SYNTHROID, LEVOTHROID) 88 mcg, oral, Daily melatonin 6 mg, oral, Nightly metoprolol tartrate (LOPRESSOR) 50 mg tablet TAKE 1 TABLET BY MOUTH TWICE A DAY omeprazole (PriLOSEC) [address] capsule TAKE 1 CAPSULE BY MOUTH 1 TIME EACH DAY. DO NOT CRUSH OR CHEW. oxyCODONE (OXY-IR) 5 mg, oral, Every 6 hours PRN senna (SENOKOT) 8.6 mg, oral, 2 times daily traZODone (DESYREL) 50 mg, oral, Nightly PRN Vitals and Physical Exam Patient Vitals for the past 24 hrs: BP Temp Temp src Pulse Resp SpO2 Height Weight 12/01/22 1814 -- -- -- -- -- 97 % -- -- 12/01/22 1810 126/77 36.9 C (98.5 F) Oral 81 16 97 % 1.753 m (69) 77.1 kg (170 lb) Body mass index is 25.1 kg/m . No intake or output data in the 24 hours ending 12/01/22 2313 Physical Exam Vitals reviewed. HENT: Head: Normocephalic. Nose: No congestion. Mouth/Throat: Mouth: Mucous membranes are dry. Eyes: General: Right eye: No discharge. Left eye: No discharge. Neck: Comments: Lower cervical and upper thoracic incision with deborah present. Incision somewhat with minimal drainage. Erythema surrounding incision. No pain. Cardiovascular: Rate and Rhythm: Normal rate and regular rhythm. Pulses: Normal pulses. Pulmonary: Effort: Pulmonary effort is normal. Abdominal: General: Bowel sounds are normal. Palpations: Abdomen is soft. Tenderness: There is no abdominal tenderness. Comments: Mild distention Genitourinary: Comments: Vanegas catheter noted with dark yellow urine Musculoskeletal: Right lower leg: Edema present. Left lower leg: Edema present. Skin: General: Skin is warm and dry. Capillary Refill: Capillary refill takes 2 to 3 seconds. Coloration: Skin is pale. Neurological: Mental Status: He is alert and oriented to person, place, and time. Comments: Bilateral lower extremity 0/5. Sensation intact. Psychiatric: Mood and Affect: Mood normal. Recent Lab Results: Admission on 12/01/2022 Component Date Value Ref Range Status Sodium 12/01/2022 135 (L) 136 - 145 mmol/L Final Potassium 12/01/2022 3.5 (L) 3.6 - 5.1 mmol/L Final Chloride 12/01/2022 99 98 - 107 mmol/L Final CO2 12/01/2022 28 22 - 32 mmol/L Final Anion Gap 12/01/2022 8 6 - 18 Final Glucose 12/01/2022 118 (H) 70 - 99 mg/dL Final BUN 12/01/2022 18 8 - 20 mg/dL Final Creatinine 12/01/2022 0.54 (L) 0.60 - 1.30 mg/dL Final eGFR 12/01/2022 111 >=60 mL/min/1.73m2 Final Effective July 05, 2022, calculation based on the Chronic Kidney Disease Epidemiology Collaboration (CKD-EPI) equation refit without adjustment for race. BUN/Creatinine Ratio 12/01/2022 33.3 (H) 12.0 - 20.0 Final Calcium 12/01/2022 8.4 (L) 8.9 - 10.3 mg/dL Final WBC 12/01/2022 6.6 4.6 - 10.2 K/mcL Final RBC 12/01/2022 3.46 (L) 4.30 - 5.70 M/mcL Final Hemoglobin 12/01/2022 10.5 (L) 13.5 - 17.5 g/dL Final Hematocrit 12/01/2022 32.2 (L) 39.0 - 49.0 % Final MCV 12/01/2022 93.1 80.0 - 97.0 FL Final MCH 12/01/2022 30.3 27.0 - 34.0 pcg Final MCHC 12/01/2022 32.6 30.8 - 35.3 g/dL Final RDW 12/01/2022 13.6 11.0 - 14.8 % Final Platelets 12/01/2022 167 142 - 424 K/mcL Final MPV 12/01/2022 9.7 6.2 - 12.1 FL Final Sed Rate 12/01/2022 89 (H) 0 - 15 mm/hr Final C-Reactive Protein 12/01/2022 13.2 (H) 0.0 - 1.0 mg/dL Final Lactate 12/01/2022 0.8 0.5 - 2.0 mmol/L Final Extra Tube 12/01/2022 Hold for add-ons. Final Auto resulted. Neutrophils % 12/01/2022 81.0 (H) 38.1 - 75.5 % Final Lymphocytes % 12/01/2022 13.0 (L) 17.9 - 49.6 % Final Monocytes % 12/01/2022 2.0 0.0 - 12.0 % Final Eosinophils % 12/01/2022 4.0 0.0 - 7.0 % Final Neutrophils Absolute 12/01/2022 5.35 1.80 - 7.70 K/mcL Final Lymphocytes Absolute 12/01/2022 0.86 (L) 1.00 - 4.80 K/mcL Final Monocytes Absolute 12/01/2022 0.13 0.00 - 0.90 K/mcL Final Eosinophils Absolute 12/01/2022 0.26 0.00 - 0.70 K/mcL Final Polychromasia Present 12/01/2022 1+ (A) (none) Final Echinocyte/Marcin Cells Present 12/01/2022 Present (A) (none) Final Elliptocytes/Ovalocytes Present 12/01/2022 Present (A) (none) Final Total Counted 12/01/2022 100 Final Recent Imaging Findings: XR Abdomen 1 View Addendum: EXAMINATION TYPE: XR ABDOMEN 1 VIEW DATE OF EXAM: 11/14/2022 11:20 PM HISTORY: Abd pain, unspecified. COMPARISON PLAIN FILM: NONE FINDINGS: No bowel dilatation. There is a large amount of colonic stool. Cholecystectomy clips are noted. Theosseous structures are grossly intact. IMPRESSION: No bowel dilatation. A large amount of colonic stool is noted. -------- FINAL REPORT -------- Dictated By: Andrey Perkins Dictated Date: 11/15/2022 00:06 Assigned Physician: Andrey Perkins Reviewed and Electronically Signed By: Andrey Perkins Signed Date: 11/15/2022 00:09 Workstation ID: [id number] Transcribed By: Self Edit Transcribed Date: 11/15/2022 00:06 -------- FINAL REPORT -------- Dictated By: Andrey Perkins Dictated Date: 11/15/2022 00:06 Assigned Physician: Andrey Perkins Reviewed and Electronically Signed By: Andrey Perkins Signed Date: 11/15/2022 00:09 Workstation ID: [id number] Transcribed By: Self Edit Transcribed Date: 11/15/2022 00:06 Narrative: EXAMINATION TYPE: XR ABDOMEN 1 VIEW DATE OF EXAM: 11/14/2022 11:20 PM HISTORY: Abd pain, unspecified. COMPARISON PLAIN FILM: NONE FINDINGS: No bowel dilatation. There is a large amount of colonic stool. Cholecystectomy clips are noted. Theosseous structures are grossly intact. Impression: No bowel dilatation. A large amount of colonic stool is noted. -------- FINAL REPORT -------- Dictated By: Andrey Perkins Dictated Date: 11/15/2022 00:06 Assigned Physician: Andrey Perkins Reviewed and Electronically Signed By: Andrey Perkins Signed Date: 11/15/2022 00:09 Workstation ID: [id number] Transcribed By: Self Edit Transcribed Date: 11/15/2022 00:06 Impression: This patient is a 67-year-old male with past medical history of hypertension, hyperlipidemia, hypothyroidism, GERD, and recent diagnosis of multiple myeloma with T2 and T7 pathological fractures withepidural tumor and subsequent cord compression. He underwent thoracic decompression and removal of T2 and T7 epidural tumor by laminectomy, facetectomy, and foraminotomy as well as posterior thoracicfusion of C7-T4 by screw fixation on 11/11/[address] Tao. He has been convalescing at his [facility]. Diagnoses: Suspected postoperative wound infection Multiple myeloma with T2 and T7 pathological fractures with epidural tumor status post C7-T4 posterior thoracic fusion with fixation and removal of epidural tumor with laminectomy, facetectomy, and foraminotomy by Dr. 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 Follow-up blood cultures. CT of cervical and thoracic spine pending Pain medication as needed PT/OT Will change Vanegas catheter here Home medications resumed Monitor daily labs Diet as tolerated DVT prophylaxis: SCDs Code Status: Patient would like to be full code Disposition: To be determined Nohemi Winters NP [facility] ([facility]) documented in this encounterBrooke Glen Behavioral [phone] Consult note* JEFFERY Gutierrez - 12/01/2022 7:12 PM ESTAssociated Order(s): IP CONSULT TO NEUROSURGERY Neurosurgery Initial Consultation Note Patient: Armand Barron Room: AP-/AP- Age: 67 y.o. Attending: Marcello Fisher DO Date of Service: 12/01/22 Admit: 12/01/2022 PCP: Salena Flores NP Assessment/Plan 67 y/o M who presents for incision evaluation S/P C7-T4 posterior fusion by pedicle screw fixation, T2, T7 removal of epidural tumor by laminectomy, facetectomy, foraminotomy by Dr. Tao 11/11/22 -Imaging: CT C/T spine with and without contrast pending per ED -Neuro exams: q4 hour neuro checks -Blood cultures: pending -CRP/Sed rate: pending -Activity /Restrictions: as tolerated -Pain control: per primary -Hold antiplatelet therapy, anticoagulation, NSAIDs, and other medications that may increase the risk of bleeding post operatively Chronic Medical conditions -Per primary service VTE: SCDs only Endocrine: Maintain CBG < 180 - management per primary Disposition: -Admit to: medicine -Follow-up on labs/imaging JEFFERY Gutierrez Please call [phone] ([phone] with any further questions or concerns. Chief complaint Chief Complaint Patient presents with Post-op Problem Patient had back surgery at [facility]. Facility attempted to take stables out today but felt wound did not appear to be healing appropriately and had a lot of drainage. Patient was advised to come to [facility] not [facility]. HPI Armand is a 67 y.o. male. he presented to the hospital 12/01/2022 secondary to Post-op Problem (Patient had back surgery at [facility]. Facility attempted to take stables out today but felt wound did not appear to be healing appropriately and had a lot of drainage. Patient was advised to come to [facility] not [facility]. ) He has a history of multiple myeloma who presented mid October 2022 with pathologic fractures of T2 and T7 with epidural tumor causing spinal cord compression. He underwent thoracic decompression and removal of epidural tumor at T2 and T7 by lamiectomy, facetectomy, and foraminotomy; posterior thoracic fusion C7-T4 on 11/11/22. Patient saw his radiation oncologist yesterday, 11/30, who recommended post-operative radiotherapy. He wanted patient to see his neurosurgeon to ensure he had adequate healing and have his deborah removed. Today, 12/01, at his facility, they were concerned about the healing of the incision so they brought patient to [facility] ED for further evaluation. Patient states he was doing well after surgery until he developed a fever of 102 degrees F , 11/26, evening. He denies nausea, vomiting, radicular pain in his extremities, abdominal pain, diarrhea, chest pain,shortness of breath. No home anticoagulation or antiplatelet medications. ROS Review of Systems Constitutional: Positive for fever. All other systems reviewed and are negative. Past Medical History Past Medical History: Diagnosis Date Cord compression (CMS/HCC) 11/10/2022 T2-T7 cord compression Vanegas catheter in place 11/10/2022 Hypercholesteremia Hypertension Hypothyroidism Multiple myeloma ([facility] 2022 Stapled skin wound 2022 thoracic spine Vitamin deficiency [facility] Surgical History Past Surgical History: Procedure Laterality Date CHOLECYSTECTOMY 09/27/1989 SPINAL CORD DECOMPRESSION 11/11/2022 Fusion Decompression T8-T9, T2 tumor removal, T2-T7 spinal cord compression Social History Social History Substance and Sexual Activity Drug Use Never Medications Allergies: No Known Allergies Home Medications: Current Outpatient Medications Medication Instructions acetaminophen (TYLENOL) 650 mg, oral, Every 6 hours PRN amLODIPine (NORVASC) 10 mg tablet TAKE 1 TABLET BY MOUTH EVERY DAY atorvastatin (LIPITOR) 10 mg tablet TAKE 1 TABLET BY MOUTH EVERY DAY cholecalciferol (VITAMIN D-3) 50,000 Units, oral, Weekly levothyroxine (SYNTHROID, LEVOTHROID) 88 mcg, oral, Daily melatonin 6 mg, oral, Nightly metoprolol tartrate (LOPRESSOR) 50 mg tablet TAKE 1 TABLET BY MOUTH TWICE A DAY omeprazole (PriLOSEC) [address] capsule TAKE 1 CAPSULE BY MOUTH 1 TIME EACH DAY. DO NOT CRUSH OR CHEW. oxyCODONE (OXY-IR) 5 mg, oral, Every 6 hours PRN senna (SENOKOT) 8.6 mg, oral, 2 times daily traZODone (DESYREL) 50 mg, oral, Nightly PRN Current Medications: No current facility-administered medications for this encounter. Current Outpatient Medications: acetaminophen (TylenoL) 325 mg capsule, Take 2 capsules (650 mg total) by mouth every 6 (six) hoursif needed for mild pain., Disp: , Rfl: amLODIPine (NORVASC) 10 mg tablet, TAKE 1 TABLET BY MOUTH EVERY DAY, Disp: 90 tablet, Rfl: 3 atorvastatin (LIPITOR) 10 mg tablet, TAKE 1 TABLET BY MOUTH EVERY DAY, Disp: 90 tablet, Rfl: 3 cholecalciferol (VITAMIN D-3) 1,250 mcg (50,000 unit) capsule, Take 1 capsule (50,000 Units total) by mouth 1 (one) time per week., Disp: 12 capsule, Rfl: 2 levothyroxine (SYNTHROID, LEVOTHROID) 88 mcg tablet, Take 1 tablet (88 mcg total) by mouth 1 (one) time each day., Disp: 90 each, Rfl: 3 melatonin 3 mg tablet, Take 2 tablets (6 mg total) by mouth at bedtime., Disp: , Rfl: 0 metoprolol tartrate (LOPRESSOR) 50 mg tablet, TAKE 1 TABLET BY MOUTH TWICE A DAY, Disp: 60 tablet, Rfl: 2 omeprazole (PriLOSEC) [address] capsule, TAKE 1 CAPSULE BY MOUTH 1 TIME EACH DAY. DO NOT CRUSH OR CHEW., Disp: 90 capsule, Rfl: 1 oxyCODONE (OXY-IR) 5 mg immediate release capsule, Take 1 capsule (5 mg total) by mouth every 6 (six) hours if needed for severe pain. Max Daily Amount: 20 mg, Disp: , Rfl: senna (SENOKOT) 8.6 mg tablet, Take 1 tablet (8.6 mg total) by mouth 2 (two) times a day., Disp: 60each, Rfl: 0 traZODone (DESYREL) 50 mg tablet, Take 1 tablet (50 mg total) by mouth at bedtime as needed for sleep., Disp: , Rfl: Objective Vitals: 12/01/22 1814 BP: Pulse: Resp: Temp: SpO2: 97% Mental Status: Alert & oriented x 4 Language: Speech is fluent, non-dysarthric, able to follow commands Fund of knowledge: aware of current events, vocabulary is normal Sensation: Sensory exam completed: grossly intact to light touch Motor: Muscle strength was assessed in all extremities BUE grasp/biceps/triceps/deltoid = 5/5 BLE DF/KF/KE/HF/HE = 0/5, PF = 1/5 Reflexes: Positive right Tyson's. GI: Abdomen soft, nontender Pulmonary: Respirations are regular and unlabored Incision: Well approximated with deborah. Mild surrounding erythema. No active drainage noted. Radiology No new imaging to review at this time. CT C and T Spine pending with and without contrast pending Labs No new labs to review at this time. CBC, BMP, ESR, CRP, Blood cultures pending [id number]* ED Bed Hold Note - Romie Baeza EMT-P - 12/01/2022 6:07 PM EST Bed: AP-HF Expected date: Expected time: Means of arrival: Comments: Medic [facility] [id number] History of Present illness Narrative* Emanuel Guerra MD - 11/30/2022 1:00 PM EST Images from the original note were not included. RADIATION ONCOLOGY TREATMENT PLANNING NOTE Patient Name (MRN): Armand Barron ([id number]) Radiation Oncologist: Emanuel Guerra MD : 1955 Date of Service: 11/30/22 A custom radiation plan will be constructed for Armand Barron. This Treatment Plan is an order of the services required to initiate tumor localization, dosimetry and imaging associated with treatment delivery. This Treatment Plan may be subject to change throughout the planning process to optimizetreatment. The final prescription, reflecting treatment modality, dose, fractionation, energy, beamarrangement, image guidance, and any additional information will be provided in an electronic prescription in [facility] after my review and approval of the final dosimetry. DIAGNOSIS AND STAGE Myeloma PLANNED PRESCRIPTION Treatment Site: T2-T7 Technique: 3DCRT Frequency: Daily Boost? Treatment Volume Dose (cGy) Fractions Resim? T2-T7 (T1-T8) 1999 5 [] Seq. [] SIB [] [] Seq. [] SIB [] [] Seq. [] SIB [] NOTES: PLANNING ORDER SET [] Diode [] Bolus [] Cerrobend block; verification output [] Special Physics Consult Notes: IMAGING ORDER SET [x] MV Portal [] kV Orthogonal [] MV/KV [] CBCT [] 4D CBCT [] Fluoroscopy [] Surface Guidance Notes: MOTION MANAGEMENT [] No gating [] Gating required Phases: [] DIBH [] Other: Notes: SPECIAL PROCEDURES [] Concurrent chemotherapy [] Dose monitoring to implanted device [] Image fusion [] Retreatment of same anatomic site [] SRS/SBRT [] Reconstruction of previous treatment plan [] Treatment of multiple sites concurrently [] Hyperfractionation [] Difficult patient setup [] Other: Notes: IGRT: MEDICAL NECESSITY [] IMRT is being utilized [x] Reduce dose to adjacent critical structures [] Target may be subject to internal motion [] There is inherent setup variation [] Target abuts a previously irradiated field [] Dose escalation is required Notes: RT TECHNIQUE: MEDICAL NECESSITY [x] Decrease probability of radiation toxicity when compared with conventional radiation [] Target is close to critical structures which must be protected [] Target must be covered with narrow margins to protect adjacent structures [] Target volume is concave or convex and adjacent to critical structures [] Dose escalation is planned to deliver doses in excess of those used with conventional treatment [] Target abuts a previously irradiated field and treatment must be delivered with high precision Notes: ORGAN AT RISK (OAR) CONSTRAINTS AND TARGET VOLUME OBJECTIVES If listed below, I plan to use the following dose constraints for OAR and target volumes. These areplanning dose objectives which are subject to modification and deviation based upon clinical judgement and individual patient factors. The priorities listed herein range from 1 (most important) to 4 (least important) and are designed to help guide tradeoffs in the planning process. I will review dose-volume parameters and dose distribution for all targets and structures in the radiation treatmentplanning system. My final approval will be provided in the treatment planning system. * Emanuel Guerra MD - 11/30/2022 1:00 PM EST Images from the original note were not included. RADIATION ONCOLOGY FOLLOW-UP NOTE Patient Name (MRN): Armand Barron ([id number]) Radiation Oncologist: Emanuel Guerra MD : 1955 Date of Service: 11/30/2022 Referring Physician: Renuka Addison MD DIAGNOSIS AND STAGE Multiple myeloma PRIOR RADIATION TREATMENT None ASSESSMENT & PLAN Armand Barron is a 67 yo male with a new diagnosis of multiple myeloma who presented in mid October2022 with pathologic fractures of T2 and T7 with epidural tumor causing spinal cord compression. I met with him as an inpatient. He underwent thoracic decompression and removal of epidural tumor at T2 and T7 by lamiectomy, facetectomy, and foraminotomy; posterior thoracic fusion C7-T4 on 11/11/22. His surgical wound appears to be healing well. He has not seen his neurosurgeon to have his deborah removed. Unfortunately, the patient does not have functional mobility in his lower extremities. I contacted Dr. Addison by phone today. The patient will receive systemic therapy for his myeloma butthe timing/location of the same is being determined. The patient may be receiving that treatment either at the [facility] or [facility]. With respect to his disease in the thoracic spine where he had spinal cord compression and ultimately required decompressive surgery, I discussed the option of/role of post-operative radiotherapy. I described a course of 20Gy in 5 fractions encompassing a region to include T2-T7. We will proceed with CT simulation for radiotherapy planning today. Before starting treatment, I would like to the patient to be seen by his neurosurgeon to ensure he has had adequate healing and have his deborah removed. Will ask Oncology Nurse Navigator Natacha Eckert to assist in this. Thank you for allow us to participate in the multidisciplinary care of this patient. ONCOLOGIC HISTORY Armand Barron is a 67 y.o. male with multiple myeloma with recent finding of multiple lytic lesions in the bone including pathologic fractures of T2 and T7 with epidural tumor causing spinal cord compression. His history is as follows: -Presented to family medicine on 11/05/22 with tingling in his legs and feet; bilateral -11/10/22- Presented to ED with worsening symptoms; now lower extremity weakness and numbness; L>R; also pain in the upper thoracic spine radiating to the scapular region -11/10/22 MRI cervical, thoracic and lumbar spine: There is a pathologic vertebral plana deformity of the T2 vertebral body. There is compression of the cord due to anterior and left dorsal epidural tumor. There is a pathologic compression fracture at T7 with moderate loss of vertebral body height and substantial epidural tumor with compression of the cord. There are several other smaller metastatic lesions throughout the thoracic marrow. No abnormal intradural enhancement. There is a left scapular metastatic lesion -11/10/22 - CT chest, abdomen, pelvis - Mild mediastinal and hilar adenopathy, Other lytic sites of disease include sacrum, L3 -11/11/22 - Thoracic decompression and removal of epidural tumor at T2 and T7 by lamiectomy, facetectomy, and foraminotomy; posterior thoracic fusion C7-T4; Pathology: Centerview restricted, plasma cell neoplasm INTERIM HISTORY Discharged to SNF Patient met with Dr. Addison last week. I contacted Dr. Addison by phone. Plans for systemic therapy underway but definitive date not set when it will be started. Maybe getting [facility] to [facility]. Patient has not seen neurosurgeon. Deborah still in place. REVIEW OF SYSTEMS Review of Systems Neurological: Positive for extremity weakness and seizures. Sensation improving in legs slowly; functionally not able to move lower extremities PHYSICAL EXAMINATION BP 116/70 (BP Location: Right arm, Patient Position: Sitting, BP Cuff Size: Adult) Pulse 80 Temp 37.3 C (99.1 F) (Temporal) Resp 10 Wt 77.1 kg (170 lb) Comment: stated BMI 28.29 kg/m ECOG Performance Status: 4 Unable to move lower extremities Physical Exam Vitals reviewed. Constitutional: Appearance: Normal appearance. Pulmonary: Effort: Pulmonary effort is normal. Skin: Comments: Surgical wounds in thoracic spine appear healing; [place] still in place Neurological: Mental Status: He is alert and oriented to person, place, and time. Sensory: Sensory deficit present. Motor: Weakness present. DATA ANALYSIS I have personally reviewed the following imaging in the PACS system and additional reports as below. IMAGING: Reviewed recent inpatient imaging 10/2022 PATHOLOGY: Review pathology from surgery * Emanuel Guerra MD - 11/30/2022 1:00 PM EST RADIATION TREATMENT PLANNING SIMULATION ORDER Rad Onc Treatment Planning Simulation Ordered at: 11/30/22 1400 Health Ministry: [facility] Scheduling location? [place] Machine? TrueBeam Simulation Type: CT Image Fusion? No Approximate Dose: 2,000 Measurement Unit: cGy Approximate Fractions: 5 Is Boost / Cone down anticipated? No Concurrent Chemotherapy? No Planned Start Date: Standard Treatment Site: Spine Treatment Technique: 3D PRODUCT SAFETY TESTER Anatomical Location: Thoracic Treatment Goal: Palliative Has the pt received prior radiation? No Pacemaker, ICD, or any Implanted Device? No Does the pt need an diplomatic interpreter/translator? No Has the patient been consented? No Clinical Trial? No Patient Position? Supine Arms Position? Up Legs Position? Neutral Immobilization Device(s)? Board Vac-Glen IGRT anticipated? Yes Comment: T spine Do you anticipate the field size being >20 cm? (i.e. whole pelvis, 3 field breast): No Contrast Needed? No Is this for a new course of treatment? Yes Estimated Creatinine Clearance: 99.3 mL/min (by C-G formula based on SCr of 0.71 mg/dL). documented in this encounterBrooke Glen Behavioral [id number] History of Present illness Narrative* Brie Ulloa RN - 11/21/2022 2:03 PM EST [facility]22. Hens completed. NO rapid covid needed. Transportation time set for 1500 with [facility]. Floor nurse, physician, facility, family, and patient updated. * Brie Ulloa RN - 11/21/2022 1:30 PM EST Images from the original note were not included. [place] [employer] [facility] Transportation Request Please remember that EMS Crew can take a maximum of two bags of patient belonging. Also DME such asWheelchairs, Bedside commodes, and other large pieces of equipment cannot travel in the ambulance due to patient and crew safety. Insurance Alert: Patients that have a managed Medicare plan will be contacted about paying a deposit for transportation via Ambulance. Please let the patient know that Ambulance Transport is not covered at 100%. There will be an out of pocket expense for ambulance transport. The deposit for transport is $200.00. This deposit is refundable pending insurance payment for transport. Transportation Type: Ambulance Requesting Staff Members Call Back Number: [phone] Requesting Hospital: [facility] [id number] Attending Provider: Dale Chaves DO Patient Name: Last, First: Armand Barron : 1955 Patient Weight: 80.7 kg (178 lb) Primary Insurance: Payor: MEDICAL M[employer]UAL / Plan: MEDICAL MUTUAL SUPERMED / Product Type: *No Product type* / Code Status: Full Code - Default Destination Type: ECF/SNF/ASSISTED LIVING - NEW ADMIT For Private Residence Only! Accessibility into the residence! For Private Residence Only! Caregiver who will be at residence! Destination: Private Residence and Other are listed in this list. [facility] [place] - [address], [place] [address] Requested Associate Professor Computer Science Date and Time: TODAY - TIME:1500 Equipment: No Equipment VENT BIPAP SETTING If patient is not on Vent BIPAP this section will automatically be blank. Isolation Precautions: There are no current isolations documented for this patient. Medical Necessity for Ambulance: Immobilization required due to:paralysis, Pain upon movement (Moderate to Severe) due to:cervical precautions and Unable to maintain safe sitting position for length of transport due to:lack of trunk support Reason For Visit: Chief Complaint Patient presents with Extremity Weakness Past Medical History: has a past medical history of Cord compression (CMS/HCC) (11/10/2022), Hypercholesteremia, Hypertension, Hypothyroidism, and Vitamin deficiency. Other Important Information: * Brie Ulloa RN - 11/21/2022 9:41 AM EST CM reviewed patient's chart. Patient remains in house for continued medical management. Plan to discharge to [facility] pending pre cert approval. NO rapid covid needed. Patient will need transportation at discharge. * Herman Morillo PT - 11/21/2022 9:18 AM EST Patient: Armand Barron Age: 67 y.o. Sex: male Weakness [facility] Physical Therapy Treatment Multi-Disciplinary Rounding Report Ambulation: PLOF: Level of Long: Independent with mobility and functional transfers Lives With: Alone Type of Home: Apartment Home Adaptive Equipment: None Home Layout: One level Home Access: Stairs to enter with rails Prior Function Comments: Pt functioned independently at baseline until Wednesday when his legs became weak resulting in a couple falls that preceeded this admission. DME Needs: TBD PT Discharge Recommendation: Inpatient rehab facility placement Reason for current recommendation based on assessment: PT continues to strongly recommend IPR at discharge as patient was independent prior to admission and lives alone in a two-level apartment. Patient currently requires max assist for slide board transfers to chair. Patient is very motivated. SUBJECTIVE Pt was cleared for PT by RN and received supine in bed. Pt reported feeling well and was agreeable to therapy. OBJECTIVE Precautions: Precautions Medical Precautions: Fall Risk Safety Interventions: Call lock within reach, ID band on, Gait belt Orthopedic Precautions: Cervical Precautions Orthoses Applied: (no brace per Neuro) Vitals/Pain: Pain Assessment Pain Assessment: 0-10 Pain Score: 0 - No pain Response to Interventions: pt denied pain during session though he noted he had LBP earlier this morning but it improved with medication Cognition: Cognition Orientation Level: Oriented X4 General Assessments: Static Sitting Balance Static Sitting-Level of Assistance: Moderate assistance Static Sitting-Balance Support: Feet supported Static Sitting-Comment/Number of Minutes: variable sitting balance, poor trunk control, Functional Assessments: Bed Mobility Lying to Sitting Assistance: Maximum assistance (x 2 with log rolling) Transfers Chair/Bed to Chair/Bed Transfer Assistance: Moderate assistance (x 2) Bed to/from Chair Transfer Technique: Lateral with transfer board Transfer Comments: pt provided good initiaition for the slideboard transfer however required significant assist for trunk control Procedure/Treatment: Therapeutic Activity Therapeutic Activity Time Entry: 24 Therapeutic Activity 1: log rolling supine to sitting EOB with cues for hand placement, total assist for LE Therapeutic Activity 2: slideboard transfer from bed to chair to the right with modA, pt used arms very effectively to initiate transfer but required significant assist to control trunk Therapeutic Activity 3: PT assisted with placing board underneath pt due to lack of trunk control Therapeutic Exercise Therapeutic Exercise Time Entry: 14 Therapeutic Exercise Activity 1: worked on trunk control therex both sitting EOB and sitting up in chair including maintaining static sitting along with leaning forward/back, L/R, pt struggled the most with L/R control Therapeutic Exercise Activity 2: perfromed chair press-ups with arms on armrest of chair, pt was able to lift bottom clear off from the chair and performed 8 reps demonstrated good UE strength Other Activities: ASSESSMENT Pt tolerated session well and is progressing toward his goals. Pt continues to have limited muscle activation in bilateral LE and struggles with trunk control in unsupported sitting requiring variable assist bust mostly modA. Pt was able to transfer to chair using slideboard with modA x2 demonstrating good initiation but again poor trunk control. Once in chair pt participated in trunk stabilization therex and UE therex as well which he tolerated well. Pt was left sitting up in chair, call lightin reach, and all needs met. RN aware of current status and updated on pts progress with therapy. PT Assessment/ Barriers to discharge: Decreased strength, Decreased endurance, Impaired balance, Decreased mobility, Decreased coordination, Pain Prognosis: Good Evaluation/Treatment Tolerance: Patient tolerated treatment well PLAN Acute Care Plan: Treatment/Interventions: Functional transfer training, LE strengthening/ROM, Endurance training, Balance training, Gait training, Bed mobility PT Plan: Skilled PT PT Frequency: 7 days per week PT Treatments per day: 1-2 times per day PT Discharge Recommendations: Inpatient rehab facility placement Equipment Recommended: TBD Time Spent: PT Time Calculation PT Start Time: 917 PT Stop Time: 955 PT Time Calculation (min): 38 min Time Entry: PT Therapeutic Procedures Time Entry Therapeutic Activity Time Entry: 24 Therapeutic Exercise Time Entry: 14 Goals: Encounter Problems Encounter Problems (Active) Template: Physical Therapy Problem: Balance Goal: Maintains static sitting balance without upper extremity support (Resolved) Dates: Start: 11/12/22 Expected End: 11/27/22 Met: 11/15/22 Description: X 2 minutes with CGA Outcomes Date/Time User Outcome 11/15/22 1044 Gisel Shaffer PT Completed Goal: Maintains dynamic sitting balance with upper extremity support Dates: Start: 11/12/22 Expected End: 11/27/22 Description: X 5 minutes with no greater than Varun required to recover from LOB Outcomes Date/Time User Outcome 11/21/22 1240 Herman Morillo PT Progressing Problem: Mobility Goal: Patient will propel the wheelchair Dates: Start: 11/12/22 Expected End: 11/27/22 Description: 100 feet without rest break with close supervision in wide open space of hallway Outcomes Date/Time User Outcome 11/21/22 1240 Herman Morillo PT Progressing Problem: Safety Goal: Patient will adhere to spine precautions during the completion of mobility skills Dates: Start: 11/12/22 Expected End: 11/27/22 Description: Minimal verbal cues Outcomes Date/Time User Outcome 11/21/22 1240 Herman Morillo PT Progressing Problem: Transfers Goal: Patient to transfer to and from sit to supine via logroll Dates: Start: 11/12/22 Expected End: 11/27/22 Description: ModA Outcomes Date/Time User Outcome 11/21/22 1240 Herman Morillo PT Progressing Goal: Patient will roll via logroll Dates: Start: 11/12/22 Expected End: 11/27/22 Description: ModA Outcomes Date/Time User Outcome 11/21/22 1240 Hermna Morillo PT Progressing Goal: Pt to complete slide board transfer to/from wheelchair with Dates: Start: 11/12/22 Expected End: 11/27/22 Description: ModA Outcomes Date/Time User Outcome 11/21/22 124Shy Morillo PT Progressing Encounter Problems (Resolved) There are no resolved problems. EDUCATION Education Documentation Spine Precautions, taught by Herman Morillo PT at 11/21/2022 12:41 PM. Learner: Patient Readiness: Acceptance Method: Explanation Response: Verbalizes Understanding Body Mechanics, taught by Herman Morillo PT at 11/21/2022 12:41 PM. Learner: Patient Readiness: Acceptance Method: Explanation Response: Verbalizes Understanding Mobility Training, taught by Herman Morillo PT at 11/21/2022 12:41 PM. Learner: Patient Readiness: Acceptance Method: Explanation Response: Verbalizes Understanding Education Comments No comments found. * Gracy Mack RN - 11/21/2022 6:45 AM EST Called [facility] and spoke with Mariya regarding patient's new complaint on mid to lower back pain. Patient describes pain as pressure, but sometimes sharp, shooting. Pain is located below the patient's previous surgical site. No neuro changes from previous assessment other than the pain. Patient provided pain medication and hot packs. Will monitor chart for orders. * Dale Chaves DO - 11/20/2022 4:42 PM EST Images from the original note were not included. Dale Chaves DO [facility] Hospitalists Daily Progress Note Patient Name: Armand Barron PCP: Salena Flores NP Perpetual Assessment: Armand Barron is a 67 y.o. male who presented from home on 11/10/2022 with past medical history of essential hypertension presented with complaints of bilateral lower extremity complete paralysis. Found to have cord compression with MM. Pt to dc to SNF and initiate on radiation and medical oncologic therapy Assessment and Plan Acute bilateral lower extremity paralysis Compression fractures, T2 and T7 Multiple Myeloma Cord compression -Presented with bilateral lower extremity acute weakness /paralysis and was unable to move his legs -Imaging as noted below, shows T2 and T7 compression fractures, cord compression due to epidural tumor. -CT chest /abdomen also done- results reviewed, mediastinal/ hilar lymphadenpathy and osseus lesions showing compression and central canal involvement, no clear cut primary tumor -Neurosurgery consulted for cord compression and has discussed with oncology, neurosurgery took patient to OR for decompression/ biopsy of tumor on 11/11/22, pt underwent Thoracic decompression and removal of epidural tumor at T2 and T7 by laminectomy, facetectomy, and foraminotomy. Posterior thoracic fusion C7-T4 by pedicle screw fixation -Appreciate Neurosurgery; pt to avoid AP, AC, Nsaids, follow up as outpt -Appreciate rad onc: follow up 11/30 -Appreciate med onc: dx of path as MM, will follow up as outpatient -Continue dexamethasone. -PT/OT consulted and recommending [facility] -Vanegas Catheter remains in place Acute kidney injury; resolved -Baseline creatinine normal, creatinine on presentation 1.5. -Patient did receive contrast for MRI and CTs -started on IV fluids and Cr resolved back to 0.6-0.7 -Continue to avoid nephrotoxins. Essential hypertension - continue home metoprolol and Norvasc - blood pressures reviewed and in acceptable ranges - will continue to monitor bp and make adjustments as needed Hypothyroidism - continue synthroid per home regimen - stable with no acute issues Hyperlipidemia - continue statin per home regimen - stable with no acute issues GERD -continue PPI Constipation -Likely due to cord compression. -continue bowel regimen Code Status: Full Code - Default DVT Prophylaxis: scd/teds NO anticoagulants or antiplatelets or NSAIDs per neurosurgery Expected Date of Discharge: Pt to go to SNF Medical/Social Complexity and Disposition: Patient requires continued hospitalization recovery from neurosurgery performed on 11/11 as above, workup positive for MM. Difficult for placement as patient continues to go to [facility] and also is being recommended to initiate on oncologic therapy however [facility] is unwilling to accept him to treat him for his underlying malignancy. Working toward SNF placement History CC: leg weakness HPI and ROS: Patient seen and examined. Updated again about plan to go to SNF and follow up with both medical onc and rad onc. Understands awaiting insurance. Physical Examination Temp: 36.6 C (97.9 F) (11/20 1514) Heart Rate: 67 (11/20 1514) Resp: 12 (11/20 1514) BP: 108/70 (11/20 1514) GENERAL: Awake, not in distress CV: Regular rate and rhythm GI: Soft, non-tender. NEURO: Alert, Ox3. Lower extremity paralysis Reviewed 11/20/22 4:42 PM EST: [x] Laboratory [] Radiology [] Cardiology [x] Medications [x] Transcriptions [] Microbiology [] Outside Records [] Family * Tresa Palm OT - 11/20/2022 3:22 PM EST Occupational Therapy Patient: Armand Barron Age: 67 y.o. Sex: male Weakness [facility] Occupational Therapy Treatment Multi-Disciplinary Rounding Report Ambulation: PLOF: Level of Long: Independent with mobility and functional transfers Lives With: Alone Type of Home: Apartment Home Adaptive Equipment: None Home Layout: One level Home Access: Stairs to enter with rails Prior Function Comments: Pt functioned independently at baseline until Wednesday when his legs became weak resulting in a couple falls that preceeded this admission. OT Discharge Recommendation: Inpatient rehab facility placement Reason for current recommendation: OT recommending intensive multidisciplinary therapy to maximize modified independence level of function. SUBJECTIVE RN cleared patient for therapy. Co-tx with physical therapy due to medical complexity, for max patient safety and for max therapeutic benefit- charges were adjusted. Patient sitting in chair with physical therapy assistance present at end of OT tx. OBJECTIVE Precautions: Precautions Medical Precautions: Fall Risk Safety Interventions: Gait belt Orthopedic Precautions: Cervical Precautions, no brace per neurosurgery note Vitals/Pain: Oxygen Therapy Oxygen Therapy: None (Room air) Pain Assessment Pain Assessment: No c/o pain General Assessments: Bed Mobility Lying to Sitting Assistance: Maximum assistance via log roll, x 2 person assist, verbal cues Functional Transfers Sit to Stand Assistance: Not attempted, medical/safety concerns Bed to Chair Assistance: Maximal assistance x 1-2 person assist Bed to Chair Transfer Technique: Sliding board transfer to the right Static Sitting Balance Static Sitting-Level of Assistance: Contact guard Static Sitting-Balance Support: Feet supported Dynamic Sitting Balance Dynamic Sitting-Level of Assistance: Minimum assistance, Moderate assistance, Maximum assistance Dynamic Sitting-Balance Support: Unilateral upper extremity supported, Feet supported Cognitive Status: Cognition Orientation Level: Oriented X4 ADLs/IADLs: Toileting Toileting Comments: [facility]egas Procedure/Treatment: Therapeutic Activity Therapeutic Activity 1: Patient sat EOB x 14 minutes with emphasis on UE exercises and static/dynamic sitting balance. Therapeutic Exercise Therapeutic Exercise Activity 1: Unilateral shoulder flexion to approximately 90 degrees with use of 1 lb weight x 15 reps for each UE. Therapeutic Exercise Activity 2: Unilateral elbow flexion with use of 1 lb weight x 15 reps for each UE. ASSESSMENT OT Assessment OT Assessment/ Barriers to Discharge: Decreased ADL status, Decreased functional mobility, Decreased trunk control for functional activities PLAN Acute Care Plan: Treatment Interventions: ADL retraining, UE strengthening/ROM, Functional transfer training, Equipment evaluation/education, Neuromuscular reeducation OT Plan: Skilled OT OT Frequency : 5 days per week OT Duration of Sessions: PRN OT Treatments per day: 1 time per day OT Discharge Recommendations: Inpatient rehab facility placement Encounter Problems Encounter Problems (Active) Template: Occupational Therapy Problem: Balance Goal: Patient will maintain dynamic sitting balance to allow for completion of daily activities andfor transfers with Min A. Dates: Start: 11/19/22 Expected End: 12/03/22 Description: Outcomes Date/Time User Outcome 11/20/22 1700 Tresa Palm OT Progressing Problem: Compromised Skin Integrity Goal: Patient demonstrates pressure reduction techniques Dates: Start: 11/12/22 Expected End: 11/21/22 Description: Goal Type: STG, Performance Level: Independent Outcomes Date/Time User Outcome 11/20/22 1119 Alise Junior RN Progressing Goal Note filed on 11/20/22 1700 by Tresa Palm OT Goal not addressed at this time Problem: Dressing Upper Extremities Goal: Patient will demonstrate use of appropriate intervention for safe dressing of upper extremities Dates: Start: 11/12/22 Expected End: 11/21/22 Description: Goal Type: STG, Performance Level: Stand by Assist Outcomes Date/Time User Outcome 11/20/22 111 Alise Junior RN Progressing Goal Note filed on 11/20/22 1700 by Tresa Palm OT Goal not addressed at this time Problem: Dressings Lower Extremities Goal: Patient will utilize adaptive techniques/equipment to dress lower body Dates: Start: 11/12/22 Expected End: 11/21/22 Description: Goal Type: STG, Performance Level: Mod assist Outcomes Date/Time User Outcome 11/20/221118 Alise Junior RN Progressing Goal Note filed on 11/20/22 1700 by Tresa Palm OT Goal not addressed at this time Problem: Safety Goal: Patient will adhere to cervical and back precautions during ADL's and transfers Dates: Start: 11/12/22 Expected End: 11/21/22 Description: Goal Type: STG, Performance Level: Independent Outcomes Date/Time User Outcome 11/20/22 1700 Tresa Palm OT Progressing Problem: Transfers Goal: Patient will perform toilet transfer Dates: Start: 11/12/22 Expected End: 11/21/22 Description: Goal Type: STG, Performance Level: Mod assist and Sliding board Outcomes Date/Time User Outcome 11/20/22 1700 Tresa Palm OT Adequate for Discharge Goal Note filed on 11/19/22 1524 by Tresa Palm OT Goal not addressed at this time Encounter Problems (Resolved) There are no resolved problems. EDUCATION Education Documentation Precautions, taught by Tresa Palm OT at 11/20/2022 5:00 PM. Learner: Patient Readiness: Acceptance Method: Explanation Response: Verbalizes Understanding, Needs Reinforcement Comment: Cervical precautions ADL Training, taught by Tresa Palm OT at 11/20/2022 5:00 PM. Learner: Patient Readiness: Acceptance Method: Explanation Response: Needs Reinforcement Education Comments No comments found. * Laury Wu PT - 11/20/2022 2:50 PM EST Physical Therapy PT assisted pt back to bed from chair via slide board transfer, MaxA with verbal cues from PT for pt to not place fingers under slide board. Min-modA for static sitting balance at EOB to allow RN To change bandage. MaxA to transfer sit to supine. PT with pt from [phone], unbillable time. * Laury Lau PTA - 11/20/2022 1:06 PM EST Physical Therapy . Patient: Armand Barron Age: 67 y.o. Sex: male Weakness [facility] Physical Therapy Treatment Multi-Disciplinary Rounding Report Ambulation: Walking Assistance: Not attempted, medical/safety concerns PLOF: Level of Long: Independent with mobility and functional transfers Lives With: Alone Type of Home: Apartment Home Adaptive Equipment: None Home Layout: One level Home Access: Stairs to enter with rails Prior Function Comments: Pt functioned independently at baseline until Wednesday when his legs became weak resulting in a couple falls that preceeded this admission. DME Needs: TBD PT Discharge Recommendation: Inpatient rehab facility placement Reason for current recommendation based on assessment: PT continues to strongly recommend [facility] at discharge as patient was independent prior to admission and lives alone in a two-level apartment. Patient currently requires max assist for slide board transfers to wheelchair. Patient is very motivated. SUBJECTIVE Pt was cleared for physical therapy services by JOHN Krueger. Patient supine in bed at start of the session. Pt pleasant and was agreeable to participate in therapy session. Patient was seen as a co-treat with occupational therapy services secondary to medically complexityof the patient and requirement for two skilled persons to mobilize the patient safely. OBJECTIVE Precautions: Precautions Medical Precautions: Fall Risk Safety Interventions: Call lock within reach, ID band on, Gait belt Orthopedic Precautions: Cervical Precautions Orthoses Applied: (no brace per Neuro) Vitals/Pain: Oxygen Therapy Oxygen Therapy: None (Room air) Pain Assessment Pain Assessment: No/denies pain Response to Interventions: pt with no c/o pain during session Cognition: Cognition Arousal/Alertness: Appropriate responses to stimuli Orientation Level: Oriented X4 General Assessments: Activity Tolerance Endurance: Tolerates 30 min exercise with multiple rests Activity Tolerance Comments: pt very motivated Static Sitting Balance Static Sitting-Level of Assistance: Contact guard Static Sitting-Balance Support: Feet supported Static Sitting-Comment/Number of Minutes: EOB 14 min. Dynamic Sitting Balance Dynamic Sitting-Level of Assistance: Minimum assistance, Moderate assistance, Maximum assistance Dynamic Sitting-Balance: Lateral lean, Trunk control activities Dynamic Sitting-Balance Support: Feet supported Dynamic Sitting-Comments: 14 min EOB completing UE ther-ex directed by OT (see OT note for details) Static Standing Balance Static Standing-Level of Assistance: Not attempted, medical/safety concerns Dynamic Standing Balance Dynamic Standing-Level of Assistance: Not attempted, medical/safety concerns Functional Assessments: Bed Mobility Rolling Right Assistance: Maximum assistance, Maximum verbal cues, Maximum tactile cues Lying to Sitting Assistance: Maximum assistance, Maximum verbal cues, Maximum tactile cues Bed Mobility Comments: max A x1-2 to facilitate logroll to the R with use of R bedrail. Max A to faciltiate R sidelying and extra time working through R sidelying to sitting (facilitating R forearm prop > sitting midline). Transfers Sit to Stand Assistance: Not attempted, medical/safety concerns Chair/Bed to Chair/Bed Transfer Assistance: Maximum assistance, Maximum verbal cues, Maximum tactile cues Bed to/from Chair Transfer Technique: Lateral with transfer board, To right Transfer Comments: bed > chair slide board transfer with max Ax1 (second person present for safety). Max cues for head/hips relationship, UE support on slideboard and B knee blocking due to hx of bes hips sliding forward. Ambulation Walking Assistance: Not attempted, medical/safety concerns Procedure/Treatment: Balance/Neuromuscular Re-Education Neuromuscular Re-Education Time Entry: 14 Balance/Neuromuscular Re-Education Activity 1: Static and dynamic sitting balance 14 min EOB Balance/Neuromuscular Re-Education Activity 2: B UE strengthening ther-ex with 1# weights directed by OT (see OT tx note) Balance/Neuromuscular Re-Education Activity 3: Pt with posterior and L LOB with dynamic reaching and UE ther-ex requiring varying levels of assist to maintain and correct posture min/maxAx1 Therapeutic Activity Therapeutic Activity Time Entry: 14 Therapeutic Activity 1: continued edu on cervical precautions as pt is unable to recall IND Therapeutic Activity 2: continued ed on logroll technique and continued reinforcement on logroll technqiue Therapeutic Activity 3: slide board transfers bed > chair (drop arm chair) to the R Therapeutic Activity 4: Supine bilateral lower extremity PROM hip and knee flexion extension, hip abduction abduction Other Activities: ASSESSMENT Pt demonstrated Good tolerance to this therapy session. Pt left sitting in bedside chair (daylin padplaced for staff to safely assist pt back to bed, pt with call light within reach and all needs met. RN notified of patients progress and level of assist required for mobility. Patient is progressingand plan of care is ongoing. PT Assessment/ Barriers to discharge: Decreased strength, Decreased endurance, Impaired balance, Decreased mobility, Decreased coordination, Orthopedic restrictions Prognosis: Good Evaluation/Treatment Tolerance: Patient tolerated treatment well Medical Staff Made Aware: Yes Comments: JOHN Krueger aware of pts status and noted incision drainage that has saturated pts gown PLAN Acute Care Plan: Treatment/Interventions: Functional transfer training, LE strengthening/ROM, UE strengthening/ROM, Endurance training, Bed mobility, Balance training PT Plan: Skilled PT PT Frequency: 7 days per week PT Treatments per day: 1-2 times per day PT Discharge Recommendations: Inpatient rehab facility placement Equipment Recommended: TBD Time Spent: PT Time Calculation PT Start Time: 1306 PT Stop Time: 1334 PT Time Calculation (min): 28 min Time Entry: PT Therapeutic Procedures Time Entry Neuromuscular Re-Education Time Entry: 14 Therapeutic Activity Time Entry: 14 Wheelchair Management Time Entry: 10 Goals: Encounter Problems Encounter Problems (Active) Template: Physical Therapy Problem: Balance Goal: Maintains static sitting balance without upper extremity support (Resolved) Dates: Start: 11/12/22 Expected End: 11/27/22 Met: 11/15/22 Description: X 2 minutes with CGA Outcomes Date/Time User Outcome 11/15/22 1044 Gisel Shaffer, PT Completed Goal: Maintains dynamic sitting balance with upper extremity support Dates: Start: 11/12/22 Expected End: 11/21/22 Description: X 5 minutes with no greater than Varun required to recover from LOB Outcomes Date/Time User Outcome 11/20/22 1355 Laury Lau PTA Progressing Problem: Mobility Goal: Patient will propel the wheelchair Dates: Start: 11/12/22 Expected End: 11/21/22 Description: 100 feet without rest break with close supervision in wide open space of hallway Outcomes Date/Time User Outcome 11/20/22 135Narcisa Lua PTA Progressing Problem: Safety Goal: Patient will adhere to spine precautions during the completion of mobility skills Dates: Start: 11/12/22 Expected End: 11/21/22 Description: Minimal verbal cues Outcomes Date/Time User Outcome 11/20/22 135Narcisa Lau PTA Progressing Problem: Transfers Goal: Patient to transfer to and from sit to supine via logroll Dates: Start: 11/12/22 Expected End: 11/21/22 Description: ModA Outcomes Date/Time User Outcome 11/20/22 Deepak Lau PTA Progressing Goal: Patient will roll via logroll Dates: Start: 11/12/22 Expected End: 11/21/22 Description: ModA Outcomes Date/Time User Outcome 11/20/22 Deepak Lau PTA Progressing Goal: Pt to complete slide board transfer to/from wheelchair with Dates: Start: 11/12/22 Expected End: 11/21/22 Description: ModA Outcomes Date/Time User Outcome 11/20/22 Deepak Lau PTA Progressing Encounter Problems (Resolved) There are no resolved problems. EDUCATION Education Documentation Spine Precautions, taught by Laury Lau PTA at 11/20/2022 1:06 PM. Learner: Patient Readiness: Acceptance Method: Explanation, Demonstration Response: Verbalizes Understanding, Needs Reinforcement Body Mechanics, taught by Laury Lau PTA at 11/20/2022 1:06 PM. Learner: Patient Readiness: Acceptance Method: Explanation, Demonstration Response: Verbalizes Understanding, Needs Reinforcement Mobility Training, taught by Laury Lau PTA at 11/20/2022 1:06 PM. Learner: Patient Readiness: Acceptance Method: Explanation, Demonstration Response: Verbalizes Understanding, Needs Reinforcement Spine Precautions, taught by Laury Lau PTA at 11/20/2022 9:40 AM. Learner: Patient Readiness: Acceptance Method: Explanation, Demonstration Response: Verbalizes Understanding, Needs Reinforcement Comment: Continued education required as patient does not demonstrate full carryover of education in regards to precautions and transfer training via slide board Body Mechanics, taught by Laury Lau PTA at 11/20/2022 9:40 AM. Learner: Patient Readiness: Acceptance Method: Explanation, Demonstration Response: Verbalizes Understanding, Needs Reinforcement Comment: Continued education required as patient does not demonstrate full carryover of education in regards to precautions and transfer training via slide board Mobility Training, taught by Laury Lau PTA at 11/20/2022 9:40 AM. Learner: Patient Readiness: Acceptance Method: Explanation, Demonstration Response: Verbalizes Understanding, Needs Reinforcement Comment: Continued education required as patient does not demonstrate full carryover of education in regards to precautions and transfer training via slide board Education Comments No comments found. * Joel Vidales NP - 11/20/2022 12:19 PM EST Images from the original note were not included. 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 -MRI of the C/T/L-spine on 11/10/2022 showed suspected pathology compression fracture at T2 and T7 levels and substantial epidural tumor at T7 level with compression of the cord, along with multiple bone lesions described as metastatic in nature throughout the spine and pelvis. -CT of the C/A/P on 11/10/2022 showed multiple lytic lesions throughout the skeleton, mildly enlarged hilar and mediastinal lymph nodes but no solid tumors or masses. -11/10/2022 SPEP showed a possible milligram gammopathy. However, Centerview/lambda ratio was 114.51 -11/11/2022 the patient underwent thoracic decompression and removal of epidural tumor at T2 and T7 by laminectomy, facetectomy and foraminotomy and posterior fusion C7-T4. Biopsy of theEpidural mass showed a kappa restricted plasma cell neoplasm. Subjective: Mr. Barron is feeling well this afternoon. He tells me his pain is a 1-2/10 today. He hasnot had any improvement in his motor function but he is hopefully that rehab will help with this. Exam: GEN: well appearing, NAd HEENT: PERRLA, oropharynx clear LYMPH: No cervical, supraclavicular, axillary LN, Inguinal or popliteal lymphadenopathy CV: RRR, S1S2, no murmurs PULM: CTAB, no wheezes, rales, or rhonchi ABD: soft, nontender, nondistended, no ascites, no HSM EXT: no edema MSK: full ROM NEURO: Bilateral lower extremities show significant decrease in the strength, 0 out of 5 on the dorsiflexion knee flexion knee extension and hip flexion. Some strength in the hip abduction, 3 out of 5. Sensation still present in both lower extremities. SKIN: no rash, petechiae, ecchymoses Data Review: LABS: No results found for this or any previous visit (from the past 24 hour(s)). IMAGING: @IMAGES@ PATHOLOGY: Order Name Source Comment Collection Info Order Time TISSUE EXAM Spine, Thoracic Collected By: Ish Tao Jr., MD 11/11/2022 5:49 PM Assessment and Plan: 1. Plasmacytoma of the thoracic spine, with spinal cord involvement. 2. T7 and T2 compression fracture, pathological. 2. Multiple myeloma, kappa restricted. Newly diagnosed Recommendations: 1. We will be seeing this patient next week and starting therapy shortly thereafter. He is currently scheduled to see Dr. Addison on 11/27/22 at 10:15 am. Currently he is scheduled for [facility], although this depends on his ability to go between the nursing facility and the treatment center. 2. Radiation can be delivered in between bortezomib injections. 3. Plans are being made for the patient to discharge to a SNF. 4. Appreciate care management team efforts. We will follow with you. Please call with questions! Joel Vidales NP * Alise Junior RN - 11/20/2022 11:19 AM EST Problem: Cognitive: Goal: Last Known Fall Outcome: Progressing Goal: Mobility requiring assistance of person or device Outcome: Progressing Goal: Dizziness Outcome: Progressing Goal: Medications Outcome: Progressing Goal: Mental Status/LOC/Awareness Outcome: Progressing Goal: Toileting Needs Outcome: Progressing Goal: Volume and Electrolyte Status Outcome: Progressing Goal: Communication/Sensory Outcome: Progressing Goal: Behavior Outcome: Progressing Problem: Health Behavior: Goal: Patient Specific Outcome Outcome: Progressing Problem: Sensory: Goal: Demonstrates/reports adequate pain control Outcome: Progressing Problem: Coping: Goal: Verbalizations of alleviation of anxiety will increase Outcome: Progressing Problem: Cognitive: Goal: Knowledge of disease or condition will improve Outcome: Progressing Problem: Physical Regulation: Goal: Postoperative complications will be avoided or minimized Outcome: Progressing Goal: Ability to maintain clinical measurements within normal limits will improve Outcome: Progressing Problem: Skin Integrity: Goal: Patient will remain free of injury and skin integrity maintained Outcome: Progressing Problem: Respiratory: Goal: Knowledge of WILFREDO (Obstructive Sleep Apnea) risk and follow-up will improve Outcome: Progressing Problem: Balance Goal: Maintains dynamic sitting balance with upper extremity support Outcome: Progressing Problem: Mobility Goal: Patient will propel the wheelchair Outcome: Progressing Problem: Safety Goal: Patient will adhere to spine precautions during the completion of mobility skills Outcome: Progressing Problem: Transfers Goal: Patient to transfer to and from sit to supine via logroll Outcome: Progressing Goal: Patient will roll via logroll Outcome: Progressing Goal: Pt to complete slide board transfer to/from wheelchair with Outcome: Progressing Problem: Dressing Upper Extremities Goal: Patient will demonstrate use of appropriate intervention for safe dressing of upper extremities Outcome: Progressing Problem: Safety Goal: Patient will adhere to cervical and back precautions during ADL's and transfers Outcome: Progressing Problem: Balance Goal: Patient will maintain dynamic sitting balance to allow for completion of daily activities andfor transfers with Min A. Outcome: Progressing Problem: Compromised Skin Integrity Goal: Patient demonstrates pressure reduction techniques Outcome: Progressing Goals: Identify possible barriers to meeting goals/advancing plan of care: Stability of the patient: Moderately Stable - Low risk of patient condition declining or worsening End of Shift Summary: Powerglide for IV access and labs. Precert pending. Pt updated with plan. Spent time in wheelchair today with PT. Well tolerated. * Etelvina Baeza LMSW - 11/20/2022 10:51 AM EST Chart Reviewed. LYNETTE received consult from EUGENIA that pt's sister Coty is requesting to speak to SW regarding questions about d/c plan. SW called Coty and left a message. Will await callback to assist with discharge needs. Per CM, pt going to [facility]. Spoke to sister Coty. Answered all questions and reiterated what the CM already told her. She verbalized understanding and is agreeable to the plan. * Brie Ulloa RN - 11/20/2022 9:42 AM EST CM spoke to patient's sister, Coty Pool [phone], regarding discharge plan for patient. CM updated that [facility] has been accepted [facility] [facility] to and from radiation appointments. Pre cert is still pending. Sister had a lot of what if questions regarding patient going to [facility] after SNF stay. EUGENIA explained once patient has finished radiation and when appropriate another referral could be sent to [facility]. Once radiation treatment is complete patient and sister are under the impression the patient is to have one shot a week and at that point family would be able to transport patient to and from that appointment. Sister stated once patient has completed stay at SNF and IPR the family will be taking patient to [place] where they will be able to assist and care for him if closer to family and patient is agreeable to this plan. Sisterstated patient started filling out Medicare papers, but didn't finish them. Sister requesting to speak to [employer]. Social Work notified. She asked if he filed for Medicare if [facility] would acc ept him or if transportation would be available to transport patient to and from radiation treatment appointments from [facility]. EUGENIA explained the patient wasn't denied d/t insurance, but because going to [facility] during radiation treatment would not be beneficial for the patient because he would be having radiation 5 days a week and would not be receiving the extensive physical therapy. EUGENIA explained SNF would be more appropriate at first so the patient could receive transportation to and fromradiation treatments and also receive physical therapy. Sister concerned patient doesn't understanddiagnosis and/or prognosis. Sister to visit hospital tomorrow and would like to speak to physician with update. MDR's complete. Patient remains in house for continued medical management. CM updated patient regarding discharge plan to [facility] pending pre cert approval. Patient agreeable to this plan. Patient will need transportation at discharge. * Laury Lau PTA - 11/20/2022 9:40 AM EST Physical Therapy Patient: Armand Barron Age: 67 y.o. Sex: male Weakness [facility] Physical Therapy Treatment Multi-Disciplinary Rounding Report Ambulation: PLOF: Level of Long: Independent with mobility and functional transfers Lives With: Alone Type of Home: Apartment Home Adaptive Equipment: None Home Layout: One level Home Access: Stairs to enter with rails Prior Function Comments: Pt functioned independently at baseline until Wednesday when his legs became weak resulting in a couple falls that preceeded this admission. DME Needs: TBD PT Discharge Recommendation: Inpatient rehab facility placement Reason for current recommendation based on assessment: PT continues to strongly recommend IPR at discharge as patient was independent prior to admission and lives alone in a two-level apartment. Patient currently requires max assist for slide board transfers to wheelchair. Patient is very motivated. SUBJECTIVE Pt was cleared for physical therapy services by RN. Patient supine in bed at start of the session. Pt eager and was agreeable to participate in therapy session. OBJECTIVE Precautions: Precautions Medical Precautions: Fall Risk Safety Interventions: Call lokc within reach, ID band on, Gait belt Orthopedic Precautions: Cervical Precautions Orthoses Applied: (No brace per Neuro) Vitals/Pain: Oxygen Therapy Oxygen Therapy: None (Room air) Pain Assessment Pain Assessment: No/denies pain Response to Interventions: pt denies pain, but does report discomfort with sitting up in wheelchairstating he feels scrunched over. Discussed with patient that we will obtain high-back chair for improved posture while sitting up. Patient verbalized understanding. RN made aware. Cognition: Cognition Arousal/Alertness: Appropriate responses to stimuli Orientation Level: Oriented X4 General Assessments: Activity Tolerance Endurance: Tolerates 30 min exercise with multiple rests Activity Tolerance Comments: Patient is highly motivated and continues to demonstrate progress during each session Static Sitting Balance Static Sitting-Level of Assistance: Close supervision, Contact guard Static Sitting-Balance Support: Feet supported, Right upper extremity supported, Left upper extremity supported Dynamic Sitting Balance Dynamic Sitting-Level of Assistance: Contact guard, Minimum assistance, Moderate assistance Dynamic Sitting-Balance: Lateral lean Dynamic Sitting-Balance Support: Feet supported Dynamic Sitting-Comments: Patient completed lateral forearm props x3 each direction to facilitate functional transition after logrolling. Functional Assessments: Bed Mobility Rolling Right Assistance: Maximum assistance, Maximum verbal cues, Moderate tactile cues Lying to Sitting Assistance: Maximum assistance, Maximum verbal cues, Moderate tactile cues Bed Mobility Comments: Max assist to roll to right side x2 trials facilitating logroll technique and reaching for a right bed rail. Max assist to facilitate right side-lying to sitting with heavy verbal cueing for right arm placement, total assist to advance lower extremities off edge of bed. Patient is able to initiate right side-lying to sitting with time and cues. Transfers Sit to Stand Assistance: Not attempted, medical/safety concerns Chair/Bed to Chair/Bed Transfer Assistance: Maximum assistance, Maximum verbal cues, Maximum tactile cues Bed to/from Chair Transfer Technique: Lateral with transfer board, To right Transfer Comments: Bed to wheelchair transfer with use of slide board to right. Patient able to useupper extremities on slide board to lift bottom and scoot to the right. Bilateral lower extremity blocking provided as hips tend to slide anteriorly. Continued education in regards to head hips relation during transition and for anterior lean to prevent hips from sliding forward. RN is present for safety but does not assist. Wheelchair Wheelchair Assistance: Close supervision, Moderate verbal cues Wheelchair Distance (ft): 200 Wheelchair Comment: Mature propulsion with bilateral upper extremities level surface navigating opens spaces with supervision. Patient does require verbal cueing for wheelchair mobility within room as patient tends to hit leg rests against stationary object. Procedure/Treatment: Therapeutic Activity Therapeutic Activity Time Entry: 25 Therapeutic Activity 1: Continuing education in regards to cervical precautions and proper positioning. Therapeutic Activity 2: Continued education and reinforcement for logroll technique during bed mobility. Patient continues to require total assist to lower extremities to complete logroll safely. Therapeutic Activity 3: Slide board transfers max assist x1 bed to wheelchair Therapeutic Activity 4: Supine bilateral lower extremity PROM hip and knee flexion extension, hip abduction abduction Other Activities: ASSESSMENT Pt demonstrated Good tolerance to this therapy session. Pt left in w/c with call light within reachand all needs met. RN notified of patients progress and level of assist required for mobility. Patient is progressing and plan of care is ongoing. PT Assessment/ Barriers to discharge: Decreased strength, Impaired balance, Impaired gait, Decreased mobility, Decreased coordination, Decreased endurance Prognosis: Good Evaluation/Treatment Tolerance: Patient tolerated treatment well Medical Staff Made Aware: Yes Comments: JOHN Carrero PLAN Acute Care Plan: Treatment/Interventions: Functional transfer training, LE strengthening/ROM, Endurance training, Bed mobility, Balance training PT Plan: Skilled PT PT Frequency: 7 days per week PT Treatments per day: 1-2 times per day PT Discharge Recommendations: Inpatient rehab facility placement Equipment Recommended: TBD Time Spent: PT Time Calculation PT Start Time: 0940 PT Stop Time: 1015 PT Time Calculation (min): 35 min Time Entry: PT Therapeutic Procedures Time Entry Therapeutic Activity Time Entry: 25 Wheelchair Management Time Entry: 10 Goals: Encounter Problems Encounter Problems (Active) Template: Physical Therapy Problem: Balance Goal: Maintains static sitting balance without upper extremity support (Resolved) Dates: Start: 11/12/22 Expected End: 11/27/22 Met: 11/15/22 Description: X 2 minutes with CGA Outcomes Date/Time User Outcome 11/15/22 1044 Gisel Shaffer, PT Completed Goal: Maintains dynamic sitting balance with upper extremity support Dates: Start: 11/12/22 Expected End: 11/21/22 Description: X 5 minutes with no greater than Varun required to recover from LOB Outcomes Date/Time User Outcome 11/20/22 1038 Laury Lau PTA Progressing Problem: Mobility Goal: Patient will propel the wheelchair Dates: Start: 11/12/22 Expected End: 11/21/22 Description: 100 feet without rest break with close supervision in wide open space of hallway Outcomes Date/Time User Outcome 11/20/22 Ava Lau PTA Progressing Problem: Safety Goal: Patient will adhere to spine precautions during the completion of mobility skills Dates: Start: 11/12/22 Expected End: 11/21/22 Description: Minimal verbal cues Outcomes Date/Time User Outcome 11/20/22 1038 Laury Lau PTA Progressing Problem: Transfers Goal: Patient to transfer to and from sit to supine via logroll Dates: Start: 11/12/22 Expected End: 11/21/22 Description: ModA Outcomes Date/Time User Outcome 11/20/22 1038 Laury Lau PTA Progressing Goal: Patient will roll via logroll Dates: Start: 11/12/22 Expected End: 11/21/22 Description: ModA Outcomes Date/Time User Outcome 11/20/22 1038 Laury Lau PTA Progressing Goal: Pt to complete slide board transfer to/from wheelchair with Dates: Start: 11/12/22 Expected End: 11/21/22 Description: ModA Outcomes Date/Time User Outcome 11/20/22 1038 Laury Lau PTA Progressing Encounter Problems (Resolved) There are no resolved problems. EDUCATION Education Documentation Spine Precautions, taught by Laury Lau PTA at 11/20/2022 9:40 AM. Learner: Patient Readiness: Acceptance Method: Explanation, Demonstration Response: Verbalizes Understanding, Needs Reinforcement Comment: Continued education required as patient does not demonstrate full carryover of education in regards to precautions and transfer training via slide board Body Mechanics, taught by Laury Lau PTA at 11/20/2022 9:40 AM. Learner: Patient Readiness: Acceptance Method: Explanation, Demonstration Response: Verbalizes Understanding, Needs Reinforcement Comment: Continued education required as patient does not demonstrate full carryover of education in regards to precautions and transfer training via slide board Mobility Training, taught by Laury Lau PTA at 11/20/2022 9:40 AM. Learner: Patient Readiness: Acceptance Method: Explanation, Demonstration Response: Verbalizes Understanding, Needs Reinforcement Comment: Continued education required as patient does not demonstrate full carryover of education in regards to precautions and transfer training via slide board Education Comments No comments found. * Kary Yoon RN - 11/20/2022 1:45 AM EST Goals: Identify possible barriers to meeting goals/advancing plan of care: limited mobility Stability of the patient: Moderately Stable - Low risk of patient condition declining or worsening End of Shift Summary: awaiting precert * Dale Chaves DO - 11/19/2022 5:52 PM EST Images from the original note were not included. Dale Chaves, [facility] Hospitalists Daily Progress Note Patient Name: Armand Barron PCP: Salena Flores, TIP Perpetual Assessment: Armand Barron is a 67 y.o. male who presented from home on 11/10/2022 with past medical history of essential hypertension presented with complaints of bilateral lower extremity complete paralysis. Found to have cord compression felt to be related to malignancy Oncology and neurosurgery consulted Assessment and Plan Acute bilateral lower extremity paralysis Compression fractures, T2 and T7 Multiple Myeloma Cord compression -Presented with bilateral lower extremity acute weakness /paralysis and was unable to move his legs -Imaging as noted below, shows T2 and T7 compression fractures, cord compression due to epidural tumor. -CT chest /abdomen also done- results reviewed, mediastinal/ hilar lymphadenpathy and osseus lesions showing compression and central canal involvement, no clear cut primary tumor -Neurosurgery consulted for cord compression and has discussed with oncology, neurosurgery took patient to OR for decompression/ biopsy of tumor on 11/11/22, pt underwent Thoracic decompression and removal of epidural tumor at T2 and T7 by laminectomy, facetectomy, and foraminotomy. Posterior thoracic fusion C7-T4 by pedicle screw fixation -Appreciate Neurosurgery; pt to avoid AP, AC, Nsaids, follow up as outpt -Appreciate rad onc: follow up 11/30 -Appreciate med onc: dx of path as MM, will follow up as outpatient -Continue dexamethasone. -PT/OT consulted and recommending IPR -Vanegas Catheter remains in place Acute kidney injury; resolved -Baseline creatinine normal, creatinine on presentation 1.5. -Patient did receive contrast for MRI and CTs -started on IV fluids and Cr resolved back to 0.6-0.7 -Continue to avoid nephrotoxins. Essential hypertension - continue home metoprolol and Norvasc - blood pressures reviewed and in acceptable ranges - will continue to monitor bp and make adjustments as needed Hypothyroidism - continue synthroid per home regimen - stable with no acute issues Hyperlipidemia - continue statin per home regimen - stable with no acute issues GERD -continue PPI Constipation -Likely due to cord compression. -continue bowel regimen Code Status: Full Code - Default DVT Prophylaxis: scd/teds NO anticoagulants or antiplatelets or NSAIDs per neurosurgery Expected Date of Discharge: Pt to go to SNF Medical/Social Complexity and Disposition: Patient requires continued hospitalization recovery from neurosurgery performed on 11/11 as above, workup positive for MM. Difficult for placement as patient continues to go to [facility] and also is being recommended to initiate on oncologic therapy however [facility] is unwilling to accept him to treat him for his underlying malignancy. History CC: leg weakness HPI and ROS: Patient seen and examined. He remains overwhelmed with everything going on but has a better understanding. He is working with therapy and was encouraged by the progress there. He understands now that he will need to go to SNF to allow him to undergo systemic therapy of his multiple myeloma. After this he may be able to go to inpatient rehab afterwards. Physical Examination Temp: 36.5 C (97.7 F) (11/19 1535) Heart Rate: 67 (11/19 1535) Resp: 15 (11/19 153) BP: 115/72 (11/19 153) GENERAL: Awake, not in distress CV: Regular rate and rhythm, no murmurs. RESP: Clear to auscultation bilaterally GI: Soft, non-tender. NEURO: Alert, Ox3. Lower extremity paralysis Reviewed 11/19/22 5:52 PM EST: [x] Laboratory [] Radiology [] Cardiology [x] Medications [x] Transcriptions [] Microbiology [] Outside Records [] Family * Gabbi Beckford RN - 11/19/2022 3:58 PM EST MDRs completed, family present. Patient has a better understanding of what is going on. [facility] [place] [facility] [place] and they can provide transportation to appointments. He chose [place]. CM [facility] lia[facility] to start precert today. * Laury Lau PTA - 11/19/2022 1:29 PM EST Physical Therapy Patient: Armand Barron Age: 67 y.o. Sex: male Weakness [facility] Physical Therapy Treatment Multi-Disciplinary Rounding Report Ambulation: Walking Assistance: Not attempted, medical/safety concerns PLOF: Level of Long: Independent with mobility and functional transfers Lives With: Alone Type of Home: Apartment Home Adaptive Equipment: None Home Layout: One level Home Access: Stairs to enter with rails Prior Function Comments: Pt functioned independently at baseline until Wednesday when his legs became weak resulting in a couple falls that preceeded this admission. DME Needs: TBD PT Discharge Recommendation: Inpatient rehab facility placement Reason for current recommendation based on assessment: PT continues to strongly recommend IPR at discharge to work toward a modified independent level of function as well as to educate pt on how to complete ADLs and maintain bowel/bladder functions. SUBJECTIVE Pt was cleared for physical therapy services by RN. Patient supine in bed at start of the session. Pt was agreeable to participate in therapy session. Patient was seen as a co-treat with occupational therapy services secondary to medically complexityof the patient and requirement for two skilled persons to mobilize the patient safely. OBJECTIVE Precautions: Precautions Medical Precautions: Fall Risk Safety Interventions: Call lock within reach, ID band on, Gait belt Orthopedic Precautions: Cervical Precautions Orthoses Applied: (no brace per Neuro) Vitals/Pain: Oxygen Therapy Oxygen Therapy: None (Room air) Pain Assessment Pain Assessment: No/denies pain Response to Interventions: pt with no c/o pain during session Cognition: Cognition Arousal/Alertness: Appropriate responses to stimuli Orientation Level: Oriented X4 Following Commands: Follows all commands and directions without difficulty General Assessments: Activity Tolerance Endurance: Tolerates 30 min exercise with multiple rests Activity Tolerance Comments: pt is very motivated and making good progress towards PT goals Static Sitting Balance Static Sitting-Level of Assistance: Contact guard, Minimum assistance Static Sitting-Balance Support: Feet supported, Right upper extremity supported, Left upper extremity supported Dynamic Sitting Balance Dynamic Sitting-Level of Assistance: Minimum assistance, Moderate assistance Dynamic Sitting-Balance: Reaching across midline, Trunk control activities, Within base of support,Outside base of support, Lateral lean Dynamic Sitting-Balance Support: Feet supported Dynamic Sitting-Comments: varying levels of assist with dynamic reaching tasks. Posterior LOB with max A to recover Static Standing Balance Static Standing-Level of Assistance: Not attempted, medical/safety concerns Dynamic Standing Balance Dynamic Standing-Level of Assistance: Not attempted, medical/safety concerns Functional Assessments: Bed Mobility Rolling Right Assistance: Maximum assistance, Maximum verbal cues, Maximum tactile cues (Ax2) Lying to Sitting Assistance: Maximum assistance, Maximum verbal cues, Maximum tactile cues (Ax2) Bed Mobility Comments: max Ax2 to roll R and complete sidelying to midline Transfers Sit to Stand Assistance: Not attempted, medical/safety concerns Chair/Bed to Chair/Bed Transfer Assistance: Maximum assistance, Maximum verbal cues, Maximum tactile cues (Ax2) Bed to/from Chair Transfer Technique: Lateral with transfer board, To right Transfer Comments: slide board transfer to the R with cues for UE use on slide board, cues for lateral lean for head/hips relation. Ambulation Walking Assistance: Not attempted, medical/safety concerns Wheelchair Wheelchair Assistance: Contact guard, Minimum assistance, Moderate verbal cues, Minimal verbal cues Wheelchair Distance (ft): 200 Wheelchair Comment: w/c propulsion with B UE on level surface and incline/decline, navigating on/off elevator with assist to manage elevator door Procedure/Treatment: Balance/Neuromuscular Re-Education Neuromuscular Re-Education Time Entry: 10 Balance/Neuromuscular Re-Education Activity 1: EOB static and dynamic sitting balance Therapeutic Activity Therapeutic Activity Time Entry: 15 Therapeutic Activity 1: see above Therapeutic Activity 2: bed mob with cues for logroll technique Therapeutic Activity 3: slide board transfers Other Activities: ASSESSMENT Pt demonstrated Good tolerance to this therapy session. Pt left with MST/RN outside in wheelchair to get some fresh air. Family area. RN notified of patients progress and level of assist required formobility. Patient is progressing and plan of care is ongoing. PT Assessment/ Barriers to discharge: Decreased strength, Decreased endurance, Impaired balance, Impaired gait, Decreased mobility Prognosis: Good Evaluation/Treatment Tolerance: Patient tolerated treatment well Medical Staff Made Aware: Yes PLAN Acute Care Plan: Treatment/Interventions: Functional transfer training, Gait training, Bed mobility, LE strengthening/ROM, Endurance training, Balance training PT Plan: Skilled PT PT Frequency: 7 days per week PT Treatments per day: 1-2 times per day PT Discharge Recommendations: Inpatient rehab facility placement Equipment Recommended: TBD Time Spent: PT Time Calculation PT Start Time: 1329 PT Stop Time: 1354 PT Time Calculation (min): 25 min Time Entry: PT Therapeutic Procedures Time Entry Neuromuscular Re-Education Time Entry: 10 Therapeutic Activity Time Entry: 15 Wheelchair Management Time Entry: 10 Goals: Encounter Problems Encounter Problems (Active) Template: Physical Therapy Problem: Balance Goal: Maintains static sitting balance without upper extremity support (Resolved) Dates: Start: 11/12/22 Expected End: 11/27/22 Met: 11/15/22 Description: X 2 minutes with CGA Outcomes Date/Time User Outcome 11/15/22 1044 Gisel Shaffer, PT Completed Goal: Maintains dynamic sitting balance with upper extremity support Dates: Start: 11/12/22 Expected End: 11/21/22 Description: X 5 minutes with no greater than Varun required to recover from LOB Outcomes Date/Time User Outcome 11/19/22 141Bulmaro Lau PTA Progressing Problem: Mobility Goal: Patient will propel the wheelchair Dates: Start: 11/12/22 Expected End: 11/21/22 Description: 100 feet without rest break with close supervision in wide open space of hallway Outcomes Date/Time User Outcome 11/19/22 Gagandeep Lau PTA Progressing Problem: Safety Goal: Patient will adhere to spine precautions during the completion of mobility skills Dates: Start: 11/12/22 Expected End: 11/21/22 Description: Minimal verbal cues Outcomes Date/Time User Outcome 11/19/22 Gagandeep Lau PTA Progressing Problem: Transfers Goal: Patient to transfer to and from sit to supine via logroll Dates: Start: 11/12/22 Expected End: 11/21/22 Description: ModA Outcomes Date/Time User Outcome 11/19/22 Gagandeep Lau PTA Progressing Goal: Patient will roll via logroll Dates: Start: 11/12/22 Expected End: 11/21/22 Description: ModA Outcomes Date/Time User Outcome 11/19/22 Gagandeep Lau PTA Progressing Goal: Pt to complete slide board transfer to/from wheelchair with Dates: Start: 11/12/22 Expected End: 11/21/22 Description: ModA Outcomes Date/Time User Outcome 11/19/22 Gagandeep Lau PTA Progressing Encounter Problems (Resolved) There are no resolved problems. EDUCATION Education Documentation Spine Precautions, taught by Laury Lau PTA at 11/19/2022 1:29 PM. Learner: Patient Readiness: Acceptance Method: Explanation, Demonstration Response: Verbalizes Understanding, Needs Reinforcement Body Mechanics, taught by Laury Lau PTA at 11/19/2022 1:29 PM. Learner: Patient Readiness: Acceptance Method: Explanation, Demonstration Response: Verbalizes Understanding, Needs Reinforcement Mobility Training, taught by Laury Lau PTA at 11/19/2022 1:29 PM. Learner: Patient Readiness: Acceptance Method: Explanation, Demonstration Response: Verbalizes Understanding, Needs Reinforcement Spine Precautions, taught by Laury Lau PTA at 11/19/2022 9:27 AM. Learner: Patient Readiness: Acceptance Method: Explanation, Demonstration Response: Verbalizes Understanding, Needs Reinforcement Body Mechanics, taught by Laury Lau PTA at 11/19/2022 9:27 AM. Learner: Patient Readiness: Acceptance Method: Explanation, Demonstration Response: Verbalizes Understanding, Needs Reinforcement Mobility Training, taught by Laury Lau PTA at 11/19/2022 9:27 AM. Learner: Patient Readiness: Acceptance Method: Explanation, Demonstration Response: Verbalizes Understanding, Needs Reinforcement Education Comments No comments found. * Tresa Palm, OT - 11/19/2022 1:28 PM EST Occupational Therapy Patient: Armand Barron Age: 67 y.o. Sex: male Weakness [facility] Occupational Therapy Treatment Multi-Disciplinary Rounding Report Ambulation: Functional Mobility Walking Assistance: Not attempted, medical/safety concerns PLOF: Carried over from prior note(s) Level of Long: Independent with mobility and functional transfers Lives With: Alone Type of Home: Apartment Home Adaptive Equipment: None Home Layout: One level Home Access: Stairs to enter with rails Prior Function Comments: Pt functioned independently at baseline until Wednesday when his legs became weak resulting in a couple falls that preceeded this admission. DME Needs: Bedside commode OT Discharge Recommendation: Inpatient rehab facility placement Reason for current recommendation: OT recommending intensive multidisciplinary therapy to maximize modified independence level of function. SUBJECTIVE RN cleared patient for therapy. Co-tx with physical therapy due to medical complexity, for max patient safety and for max therapeutic benefit- charges were adjusted. Patient sitting in wheelchair in hallway with VENEER JOINTER OPERATOR present at end of OT tx. OBJECTIVE Precautions: Precautions Medical Precautions: Fall Risk Safety Interventions: Gait belt Orthopedic Precautions: Cervical Precautions (No brace per chart) Vitals/Pain: Oxygen Therapy Oxygen Therapy: None (Room air) Pain Assessment Pain Assessment: No c/o pain General Assessments: Bed Mobility Lying to Sitting Assistance: Maximum assistance via log roll, max verbal cues, x 2 person assist Functional Transfers Sit to Stand Assistance: Not attempted, medical/safety concerns Bed to Chair Assistance: Maximal assistance x 2 person assist Bed to Chair Transfer Technique: Slide board transfer, transfer to the right Functional Mobility Walking Assistance: Not attempted, medical/safety concerns Static Sitting Balance Static Sitting-Level of Assistance: Contact guard, Minimum assistance Dynamic Sitting Balance Dynamic Sitting-Level of Assistance: Minimum assistance, Moderate assistance, Maximum assistance (Posterior LOB with Max A to recover) Cognitive Status: Cognition Orientation Level: Oriented X4 ADLs/IADLs: Toileting Toileting Comments: Yandel Procedure/Treatment: Therapeutic Activity Therapeutic Activity 1: Patient sat EOB with emphasis on static/dynamic sitting balance, L/R lateral forearm props to return to midline x 3 reps each, R/L UE reaching task. ASSESSMENT OT Assessment OT Assessment/ Barriers to Discharge: Decreased ADL status, Decreased functional mobility, Decreased trunk control for functional activities PLAN Acute Care Plan: Treatment Interventions: ADL retraining, Functional transfer training, UE strengthening/ROM, Equipment evaluation/education, Neuromuscular reeducation OT Plan: Skilled OT OT Frequency : 5 days per week OT Duration of Sessions: PRN OT Treatments per day: 1 time per day OT Discharge Recommendations: Inpatient rehab facility placement Encounter Problems Encounter Problems (Active) Template: Occupational Therapy Problem: Balance Goal: Patient will maintain dynamic sitting balance to allow for completion of daily activities andfor transfers with Min A. Dates: Start: 11/19/22 Expected End: 12/03/22 Description: Outcomes Date/Time User Outcome 11/19/22 1524 Tresa Palm OT Progressing Problem: Compromised Skin Integrity Goal: Patient demonstrates pressure reduction techniques Dates: Start: 11/12/22 Expected End: 11/21/22 Description: Goal Type: STG, Performance Level: Independent Outcomes Date/Time User Outcome 11/19/22 1038 Swapna Chirinos RN Progressing Goal Note filed on 11/19/22 1524 by Tresa Palm OT Goal not addressed at this time Problem: Dressing Upper Extremities Goal: Patient will demonstrate use of appropriate intervention for safe dressing of upper extremities Dates: Start: 11/12/22 Expected End: 11/21/22 Description: Goal Type: STG, Performance Level: Stand by Assist Outcomes Date/Time User Outcome 11/19/22 1038 Swapna Chirinos RN Progressing Goal Note filed on 11/19/22 1524 by Tresa Palm OT Goal not addressed at this time Problem: Dressings Lower Extremities Goal: Patient will utilize adaptive techniques/equipment to dress lower body Dates: Start: 11/12/22 Expected End: 11/21/22 Description: Goal Type: STG, Performance Level: Mod assist Outcomes Date/Time User Outcome 11/19/22 Ava Chirinos RN Progressing Goal Note filed on 11/19/22 1524 by Tresa Palm OT Goal not addressed at this time Problem: Safety Goal: Patient will adhere to cervical and back precautions during ADL's and transfers Dates: Start: 11/12/22 Expected End: 11/21/22 Description: Goal Type: STG, Performance Level: Independent Outcomes Date/Time User Outcome 11/19/22 1524 Tresa Palm OT Progressing Problem: Transfers Goal: Patient will perform toilet transfer Dates: Start: 11/12/22 Expected End: 11/21/22 Description: Goal Type: STG, Performance Level: Mod assist and Sliding board Outcomes Date/Time User Outcome 11/19/22 1038 Swapna Chirinos RN Progressing Goal Note filed on 11/19/22 1524 by Tresa Palm OT Goal not addressed at this time Encounter Problems (Resolved) There are no resolved problems. EDUCATION Education Documentation ADL Training, taught by Tresa Palm OT at 11/19/2022 3:21 PM. Learner: Patient Readiness: Acceptance Method: Explanation Response: Verbalizes Understanding, Needs Reinforcement Education Comments No comments found. * Tico Fox MD - 11/19/2022 12:19 PM EST Images from the original note were not included. 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 -MRI of the C/T/L-spine on 11/10/2022 showed suspected pathology compression fracture at T2 and T7 levels and substantial epidural tumor at T7 level with compression of the cord, along with multiple bone lesions described as metastatic in nature throughout the spine and pelvis. -CT of the C/A/P on 11/10/2022 showed multiple lytic lesions throughout the skeleton, mildly enlarged hilar and mediastinal lymph nodes but no solid tumors or masses. -11/10/2022 SPEP showed a possible milligram gammopathy. However, Centerview/lambda ratio was 114.51 -11/11/2022 the patient underwent thoracic decompression and removal of epidural tumor at T2 and T7 by laminectomy, facetectomy and foraminotomy and posterior fusion C7-T4. Biopsy of theEpidural mass showed a kappa restricted plasma cell neoplasm. Subjective: The patient is laying in bed. Comfortable. Fortunately he does not have any improvementin his motor function. Sensation is also significantly increased. Exam: GEN: well appearing, NAd HEENT: PERRLA, oropharynx clear LYMPH: No cervical, supraclavicular, axillary LN, Inguinal or popliteal lymphadenopathy CV: RRR, S1S2, no murmurs PULM: CTAB, no wheezes, rales, or rhonchi ABD: soft, nontender, nondistended, no ascites, no HSM EXT: no edema MSK: full ROM NEURO: Bilateral lower extremities show significant decrease in the strength, 0 out of 5 on the dorsiflexion knee flexion knee extension and hip flexion. Some strength in the hip abduction, 3 out of 5. Sensation still present in both lower extremities. SKIN: no rash, petechiae, ecchymoses Data Review: LABS: No results found for this or any previous visit (from the past 24 hour(s)). IMAGING: @IMAGES@ PATHOLOGY: Order Name Source Comment Collection Info Order Time TISSUE EXAM Spine, Thoracic Collected By: Ish Tao Jr., MD 11/11/2022 5:49 PM Assessment and Plan: 1. Plasmacytoma of the thoracic spine, with spinal cord involvement. 2. T7 and T2 compression fracture, pathological. 2. Multiple myeloma, kappa restricted. Newly diagnosed Recommendations: 1. We will be seeing this patient next week and starting therapy shortly thereafter. Currently he is scheduled for [facility], although this depends on his ability to go between the nursing facility and the treatment center. 2. Radiation can be delivered in between bortezomib injections. 3. Patient seems to be going to a SNF. 4. Appreciate care management team efforts. We will follow with you. Please call with questions! Tico Fox MD * Swapna Chirinos RN - 11/19/2022 10:38 AM EST Goals: Identify possible barriers to meeting goals/advancing plan of care: Stability of the patient: Moderately Stable - Low risk of patient condition declining or worsening End of Shift Summary: awaiting for approval to snf with transportation to radiation * Laury Lau PTA - 11/19/2022 9:27 AM EST Physical Therapy Patient: Armand Barron Age: 67 y.o. Sex: male Weakness [facility] Physical Therapy Treatment Multi-Disciplinary Rounding Report Ambulation: Walking Assistance: Not attempted, medical/safety concerns PLOF: Level of Long: Independent with mobility and functional transfers Lives With: Alone Type of Home: Apartment Home Adaptive Equipment: None Home Layout: One level Home Access: Stairs to enter with rails Prior Function Comments: Pt functioned independently at baseline until Wednesday when his legs became weak resulting in a couple falls that preceeded this admission. DME Needs: TBD PT Discharge Recommendation: Inpatient rehab facility placement Reason for current recommendation based on assessment: PT continues to strongly recommend IPR at discharge to work toward a modified independent level of function as well as to educate pt on how to complete ADLs and maintain bowel/bladder functions. SUBJECTIVE Pt was cleared for physical therapy services by RN. Patient supine in bed at start of the session. Pt and family present during arrival. Family with many questions regarding pts d/c plan and outcome.Deferred to MD and oncology. OBJECTIVE Precautions: Precautions Medical Precautions: Fall Risk Safety Interventions: Call lock within reach, ID band on, Gait belt Orthopedic Precautions: Cervical Precautions Orthoses Applied: (no brace per Neuro) Vitals/Pain: Oxygen Therapy Oxygen Therapy: None (Room air) Pain Assessment Pain Assessment: No/denies pain Cognition: Cognition Arousal/Alertness: Appropriate responses to stimuli Orientation Level: Oriented X4 General Assessments: Activity Tolerance Endurance: Tolerates 30 min exercise with multiple rests Static Sitting Balance Static Sitting-Level of Assistance: Contact guard, Minimum assistance Static Sitting-Balance Support: Feet supported, Left upper extremity supported, Right upper extremity supported Dynamic Sitting Balance Dynamic Sitting-Level of Assistance: Contact guard, Minimum assistance, Moderate assistance Dynamic Sitting-Balance Support: Feet supported Static Standing Balance Static Standing-Level of Assistance: Not applicable, did not do prior Dynamic Standing Balance Dynamic Standing-Level of Assistance: Not applicable, did not do prior Functional Assessments: Bed Mobility Lying to Sitting Assistance: Maximum assistance, Moderate verbal cues, Maximum verbal cues Bed Mobility Comments: maxA to complete logroll technique Transfers Sit to Stand Assistance: Not attempted, medical/safety concerns Chair/Bed to Chair/Bed Transfer Assistance: Maximum assistance, Maximum verbal cues, Maximum tactile cues (X2) Bed to/from Chair Transfer Technique: Lateral with transfer board, To right Transfer Comments: slide board transfer to the R with B UE pushing on board to lift bottom and scoot to the R (w/c). RN student present to stabilize at shoulders due to fair trunk control with dynamic movements. Draw pad used to assist pt with scooting. Once in w/c, pt able to use B UE to scoot hips back into w/c. Daylin pad placed in w/c for staff to assist pt back to bed safely Ambulation Walking Assistance: Not attempted, medical/safety concerns Wheelchair Wheelchair Assistance: Minimum assistance, Moderate verbal cues Wheelchair Distance (ft): 120 Wheelchair Comment: 120' with B UE w/c propulsion with assist for in room and small spaces Procedure/Treatment: Balance/Neuromuscular Re-Education Neuromuscular Re-Education Time Entry: 10 Balance/Neuromuscular Re-Education Activity 1: EOB static and dynamic sitting balance Therapeutic Activity Therapeutic Activity Time Entry: 20 Therapeutic Activity 1: cervical precautions Therapeutic Activity 2: bed mob with cues for logroll technique Therapeutic Activity 3: slide board transfers Other Activities: ASSESSMENT Pt demonstrated Good tolerance to this therapy session. Pt left in w/c with call light within reachand all needs met. RN notified of patients progress and level of assist required for mobility. Patient is progressing and plan of care is ongoing. PT Assessment/ Barriers to discharge: Decreased strength, Decreased endurance, Impaired balance, Impaired gait, Decreased mobility Prognosis: Good Evaluation/Treatment Tolerance: Patient tolerated treatment well Medical Staff Made Aware: Yes PLAN Acute Care Plan: Treatment/Interventions: Functional transfer training, LE strengthening/ROM, Endurance training, Gait training, Bed mobility, Balance training PT Plan: Skilled PT PT Frequency: 7 days per week PT Treatments per day: 1-2 times per day PT Discharge Recommendations: Inpatient rehab facility placement Equipment Recommended: TBD Time Spent: PT Time Calculation PT Start Time: 926 PT Stop Time: 100 PT Time Calculation (min): 41 min Time Entry: PT Therapeutic Procedures Time Entry Neuromuscular Re-Education Time Entry: 10 Therapeutic Activity Time Entry: 20 Wheelchair Management Time Entry: 11 Goals: Encounter Problems Encounter Problems (Active) Template: Physical Therapy Problem: Balance Goal: Maintains static sitting balance without upper extremity support (Resolved) Dates: Start: 11/12/22 Expected End: 11/27/22 Met: 11/15/22 Description: X 2 minutes with CGA Outcomes Date/Time User Outcome 11/15/22 1044 Gisel Shaffer, PT Completed Goal: Maintains dynamic sitting balance with upper extremity support Dates: Start: 11/12/22 Expected End: 11/21/22 Description: X 5 minutes with no greater than Varun required to recover from LOB Outcomes Date/Time User Outcome 11/19/22 102Amanda Lau PTA Progressing Problem: Mobility Goal: Patient will propel the wheelchair Dates: Start: 11/12/22 Expected End: 11/21/22 Description: 100 feet without rest break with close supervision in wide open space of hallway Outcomes Date/Time User Outcome 11/19/22 102Amanda Lau PTA Progressing Problem: Safety Goal: Patient will adhere to spine precautions during the completion of mobility skills Dates: Start: 11/12/22 Expected End: 11/21/22 Description: Minimal verbal cues Outcomes Date/Time User Outcome 11/19/22 Debbie Lau PTA Progressing Problem: Transfers Goal: Patient to transfer to and from sit to supine via logroll Dates: Start: 11/12/22 Expected End: 11/21/22 Description: ModA Outcomes Date/Time User Outcome 11/19/22 Debbie Lau PTA Progressing Goal: Patient will roll via logroll Dates: Start: 11/12/22 Expected End: 11/21/22 Description: ModA Outcomes Date/Time User Outcome 11/19/22 1026 Laury Lau PTA Progressing Goal: Pt to complete slide board transfer to/from wheelchair with Dates: Start: 11/12/22 Expected End: 11/21/22 Description: ModA Outcomes Date/Time User Outcome 11/19/22 1026 Laury Lau PTA Progressing Encounter Problems (Resolved) There are no resolved problems. EDUCATION Education Documentation Spine Precautions, taught by Laury Lau PTA at 11/19/2022 9:27 AM. Learner: Patient Readiness: Acceptance Method: Explanation, Demonstration Response: Verbalizes Understanding, Needs Reinforcement Body Mechanics, taught by Laury Lau PTA at 11/19/2022 9:27 AM. Learner: Patient Readiness: Acceptance Method: Explanation, Demonstration Response: Verbalizes Understanding, Needs Reinforcement Mobility Training, taught by Laury Lau PTA at 11/19/2022 9:27 AM. Learner: Patient Readiness: Acceptance Method: Explanation, Demonstration Response: Verbalizes Understanding, Needs Reinforcement Education Comments No comments found. * Dale Chaves DO - 11/18/2022 7:15 PM EST Images from the original note were not included. Dale Chaves DO [facility] Hospitalists Daily Progress Note Patient Name: Armand Barron PCP: Salena Flores NP Perpetual Assessment: Armand Barron is a 67 y.o. male who presented from home on 11/10/2022 with past medical history of essential hypertension presented with complaints of bilateral lower extremity complete paralysis. Found to have cord compression felt to be related to malignancy Oncology and neurosurgery consulted Assessment and Plan Acute bilateral lower extremity paralysis Compression fractures, T2 and T7 Multiple Myeloma Cord compression -Presented with bilateral lower extremity acute weakness /paralysis and was unable to move his legs -Imaging as noted below, shows T2 and T7 compression fractures, cord compression due to epidural tumor. -CT chest /abdomen also done- results reviewed, mediastinal/ hilar lymphadenpathy and osseus lesions showing compression and central canal involvement, no clear cut primary tumor -Neurosurgery consulted for cord compression and has discussed with oncology, neurosurgery took patient to OR for decompression/ biopsy of tumor on 11/11/22, pt underwent Thoracic decompression and removal of epidural tumor at T2 and T7 by laminectomy, facetectomy, and foraminotomy. Posterior thoracic fusion C7-T4 by pedicle screw fixation -Appreciate Neurosurgery; pt to avoid AP, AC, Nsaids, follow up as outpt -Appreciate rad onc: follow up 11/30 -Appreciate med onc: dx of path as MM, will follow up as outpatient -Continue dexamethasone. -PT/OT consulted and recommending IPR -Vanegas Catheter remains in place Acute kidney injury; resolved -Baseline creatinine normal, creatinine on presentation 1.5. -Patient did receive contrast for MRI and CTs -started on IV fluids and Cr resolved back to 0.6-0.7 -Continue to avoid nephrotoxins. Essential hypertension - continue home metoprolol and Norvasc - blood pressures reviewed and in acceptable ranges - will continue to monitor bp and make adjustments as needed Hypothyroidism - continue synthroid per home regimen - stable with no acute issues Hyperlipidemia - continue statin per home regimen - stable with no acute issues GERD -continue PPI Constipation -Likely due to cord compression. -continue bowel regimen Code Status: Full Code - Default DVT Prophylaxis: scd/teds NO anticoagulants or antiplatelets or NSAIDs per neurosurgery Expected Date of Discharge: Currently awaiting acceptance/pre-CERT to IPR Medical/Social Complexity and Disposition: Patient requires continued hospitalization recovery from neurosurgery performed on 11/11 as above, workup positive for MM. Difficult for placement as patient continues to go to IPR and also is being recommended to initiate on oncologic therapy however [facility] is unwilling to accept him to treat him for his underlying malignancy. History CC: leg weakness HPI and ROS: Patient seen and examined. No new complaints. Patient is very overwhelmed as he understands that he needs rehab but also does not want to delay his treatment. Tolerating po intake, having BMs. Discussed on MDR. Physical Examination Temp: 36.6 C (97.9 F) (11/18 1455) Heart Rate: 53 (11/18 1455) Resp: 15 (11/18 1455) BP: 116/73 (11/18 1455) GENERAL: Awake, not in distress CV: Regular rate and rhythm, no murmurs. RESP: Clear to auscultation bilaterally GI: Soft, non-tender. NEURO: Alert, Ox3. Lower extremity paralysis Reviewed 11/18/22 7:15 PM EST: [x] Laboratory [] Radiology [] Cardiology [x] Medications [x] Transcriptions [] Microbiology [] Outside Records [] Family * Gabbi Beckford RN - 11/18/2022 3:12 PM EST Received a message from [facility] liaison stating if patient starting treatment they cannot order, administer or transfer patient for treatment during stay. If that will be an issue we cannot accept.It would need to be discussed if this would be detrimental to the patient as he can always do IPR during a break in cycles. SNF referrals has been sent. * Laury Lau PTA - 11/18/2022 1:47 PM EST Physical Therapy Patient: Armand Barron Age: 67 y.o. Sex: male Weakness [facility] Physical Therapy Treatment Multi-Disciplinary Rounding Report Ambulation: Walking Assistance: Not attempted, medical/safety concerns PLOF: Level of Long: Independent with mobility and functional transfers Lives With: Alone Type of Home: Apartment Home Adaptive Equipment: None Home Layout: One level Home Access: Stairs to enter with rails Prior Function Comments: Pt functioned independently at baseline until Wednesday when his legs became weak resulting in a couple falls that preceeded this admission. DME Needs: TBD PT Discharge Recommendation: Inpatient rehab facility placement Reason for current recommendation based on assessment: PT continues to strongly recommend IPR at discharge to work toward a modified independent level of function as well as to educate pt on how to complete ADLs and maintain bowel/bladder functions. SUBJECTIVE Pt was cleared for physical therapy services by JOHN De La Rosa. Patient supine in bed at start of the session. Pt eager to work with PT. Patient was seen as a co- treat with occupational therapy services secondary to medically complexity of the patient and requirement for two skilled persons to mobilize the patient safely. OBJECTIVE Precautions: Precautions Medical Precautions: Fall Risk Safety Interventions: Call lock within reach, ID band on, Bed alarm Orthopedic Precautions: Cervical Precautions Orthoses Applied: (no brace per Neuro) Vitals/Pain: Oxygen Therapy Oxygen Therapy: None (Room air) Pain Assessment Pain Assessment: 0-10 Pain Location: Back Pain Orientation: Upper Pain Radiating Towards: upper back and between shoulder blades Pain Descriptors: Tightness Clinical Progression: Gradually worsening Patient's Stated Pain Goal: No pain Pain Interventions: Repositioned, RN notified (Comment), Rest Response to Interventions: pt reports pain with prolonged sitting EOB, mostly reports tightness Cognition: Cognition Arousal/Alertness: Appropriate responses to stimuli Orientation Level: Oriented X4 Following Commands: Follows all commands and directions without difficulty General Assessments: Activity Tolerance Endurance: Tolerates 30 min exercise with multiple rests Activity Tolerance Comments: pt very motivated and making progress towards PT goals Static Sitting Balance Static Sitting-Level of Assistance: Contact guard, Close supervision Static Sitting-Balance Support: Feet supported Static Sitting-Comment/Number of Minutes: pt sitting EOB with UE support. Pt noted to electrical linesworker sheet byhis sides to maintain sitting balance. Attempted Tripod position but pt frequently loosing balance posteriorly. Occassionally able to hold midline posture with SBA/CGA but only momentarily Dynamic Sitting Balance Dynamic Sitting-Level of Assistance: Contact guard, Minimum assistance, Moderate assistance, Maximum assistance Dynamic Sitting-Balance: Reaching for objects, Trunk control activities, Head control activities (Comment), Reaching across midline, Forward lean, Lateral lean Dynamic Sitting-Comments: varying levels of assist with posterior and L LOB noted with reaching andscooting. Static Standing Balance Static Standing-Level of Assistance: Not attempted, medical/safety concerns Functional Assessments: Bed Mobility Rolling Left Assistance: Maximum assistance, Maximum verbal cues, Maximum tactile cues Sitting to Lying Assistance: Maximum assistance, Maximum verbal cues, Maximum tactile cues (Ax2) Lying to Sitting Assistance: Maximum assistance, Maximum verbal cues, Maximum tactile cues (Ax2) Bed Mobility Comments: max AX1 sup > sit with total assist to roll L and complete L sidelying tositting with max cues for arm position and max/total A to advance LEs. Max AX2 to return to supine via logroll technique Transfers Sit to Stand Assistance: Not attempted, medical/safety concerns Ambulation Walking Assistance: Not attempted, medical/safety concerns Procedure/Treatment: Balance/Neuromuscular Re-Education Neuromuscular Re-Education Time Entry: 20 Balance/Neuromuscular Re-Education Activity 1: seated EOB 20 min for static and dynamic sitting balance Balance/Neuromuscular Re-Education Activity 2: lateral forearm props with focus on tricep activation to return to midline for fucntional transition. x4 R UE, x6 L UE Balance/Neuromuscular Re-Education Activity 3: Alternating UE reaching outside SHELLIE and across midline with R and L UE. Balance/Neuromuscular Re-Education Activity 4: trunk anterior/posterior leans within SHELLIE for core stabilization and return to midline Therapeutic Activity Therapeutic Activity Time Entry: 9 Therapeutic Activity 1: reviewing cervical precautions, proper positioning and neutral cervical alignment Therapeutic Activity 2: edu on logroll technique sup <> sit Other Activities: ASSESSMENT Pt demonstrated Good tolerance to this therapy session. Pt left supine in bed with call light within reach and all needs met. RN notified of patients progress and level of assist required for mobility. Patient is progressing and plan of care is ongoing. PT Assessment/ Barriers to discharge: Decreased strength, Decreased endurance, Impaired balance, Impaired gait, Decreased mobility, Decreased coordination, Orthopedic restrictions Prognosis: Good Evaluation/Treatment Tolerance: Patient tolerated treatment well Medical Staff Made Aware: Yes PLAN Acute Care Plan: Treatment/Interventions: Functional transfer training, LE strengthening/ROM, Endurance training, Bed mobility, Balance training PT Plan: Skilled PT PT Frequency: 7 days per week PT Treatments per day: 1-2 times per day PT Discharge Recommendations: Inpatient rehab facility placement Equipment Recommended: TBD Time Spent: PT Time Calculation PT Start Time: 1347 PT Stop Time: 1416 PT Time Calculation (min): 29 min Time Entry: PT Therapeutic Procedures Time Entry Neuromuscular Re-Education Time Entry: 20 Therapeutic Activity Time Entry: 9 Goals: Encounter Problems Encounter Problems (Active) Template: Physical Therapy Problem: Balance Goal: Maintains static sitting balance without upper extremity support (Resolved) Dates: Start: 11/12/22 Expected End: 11/27/22 Met: 11/15/22 Description: X 2 minutes with CGA Outcomes Date/Time User Outcome 11/15/22 1044 Gisel Shaffer, PT Completed Goal: Maintains dynamic sitting balance with upper extremity support Dates: Start: 11/12/22 Expected End: 11/21/22 Description: X 5 minutes with no greater than Varun required to recover from LOB Outcomes Date/Time User Outcome 11/18/22 1436 Laury Lau PTA Progressing Problem: Mobility Goal: Patient will propel the wheelchair Dates: Start: 11/12/22 Expected End: 11/21/22 Description: 100 feet without rest break with close supervision in wide open space of hallway Outcomes Date/Time User Outcome 11/18/22 1436 Laury Lau PTA Progressing Problem: Safety Goal: Patient will adhere to spine precautions during the completion of mobility skills Dates: Start: 11/12/22 Expected End: 11/21/22 Description: Minimal verbal cues Outcomes Date/Time User Outcome 11/18/22 SolAmanda Lau PTA Progressing Problem: Transfers Goal: Patient to transfer to and from sit to supine via logroll Dates: Start: 11/12/22 Expected End: 11/21/22 Description: ModA Outcomes Date/Time User Outcome 11/18/22 SolAmanda Lau PTA Progressing Goal: Patient will roll via logroll Dates: Start: 11/12/22 Expected End: 11/21/22 Description: ModA Outcomes Date/Time User Outcome 11/18/22 SolAmanda Lau PTA Progressing Goal: Pt to complete slide board transfer to/from wheelchair with Dates: Start: 11/12/22 Expected End: 11/21/22 Description: ModA Outcomes Date/Time User Outcome 11/18/22 SolAmanda Lau PTA Progressing Encounter Problems (Resolved) There are no resolved problems. EDUCATION Education Documentation No documentation found. Education Comments No comments found. \ * Tresa Palm OT - 11/18/2022 1:47 PM EST Occupational Therapy Patient: Armand Barron Age: 67 y.o. Sex: male Weakness [facility] Occupational Therapy Treatment Multi-Disciplinary Rounding Report Ambulation: Functional Mobility Walking Assistance: Not attempted, medical/safety concerns PLOF: Carried over from prior note(s) Level of Long: Independent with mobility and functional transfers Lives With: Alone Type of Home: Apartment Home Adaptive Equipment: None Home Layout: One level Home Access: Stairs to enter with rails Prior Function Comments: Pt functioned independently at baseline until Wednesday when his legs became weak resulting in a couple falls that preceeded this admission. DME Needs: Bedside commode OT Discharge Recommendation: Inpatient rehab facility placement Reason for current recommendation: OT recommending intensive multidisciplinary therapy to maximize modified independence level of function. SUBJECTIVE RN cleared patient for therapy. Co-tx with physical therapy due to medical complexity, for max patient safety and for max therapeutic benefit- charges were adjusted. OBJECTIVE Precautions: Precautions Medical Precautions: Fall Risk Safety Interventions: Call lock within reach, Bed alarm Orthopedic Precautions: Cervical Precautions, No brace per chart review Vitals/Pain: Oxygen Therapy Oxygen Therapy: None (Room air) Pain Assessment Pain Assessment: 0-10 Pain Location: Back Pain Orientation: Upper Pain Descriptors: Tightness Clinical Progression: Gradually worsening Pain Interventions: Repositioned, Rest Activities/Procedures Causing Pain: Activity General Assessments: Bed Mobility Sitting to Lying Assistance: Maximum assistance via log roll, x 2 person assist, verbal cues for sequencing of log roll technique Functional Transfers Sit to Stand Assistance: Not attempted, medical/safety concerns Functional Mobility Walking Assistance: Not attempted, medical/safety concerns Static Sitting Balance Static Sitting-Level of Assistance: Contact guard, Minimum assistance (Momentarily able to hold midline position with SBA/CGA) Dynamic Sitting Balance Dynamic Sitting-Level of Assistance: Contact guard, Minimum assistance, Moderate assistance, Maximum assistance Extremity Assessments: LUE Assessment LUE Assessment: Impaired RLE Assessment RLE Assessment: Impaired LLE Assessment LLE Assessment: Impaired ADLs/IADLs: Toileting Toileting Comments: Vanegas noted Procedure/Treatment: Therapeutic Activity Therapeutic Activity 1: Patient sat EOB x approximately 20 minutes with emphasis on static/dynamic sitting balance, lateral forearm props to return to midline, UE reaching task, trunk anterior/posterior leans within SHELLIE, lifting buttock off of bed/scooting R/L with use of bilateral UEs in preparation for slide board transfers, L/R UE exercises- shoulder flexion. Therapeutic Activity 2: Patient was educated on cervical precautions. ASSESSMENT OT Assessment OT Assessment/ Barriers to Discharge: Decreased ADL status, Decreased upper extremity range of motion, Decreased functional mobility, Decreased trunk control for functional activities PLAN Acute Care Plan: Treatment Interventions: ADL retraining, Functional transfer training, UE strengthening/ROM, Equipment evaluation/education, Neuromuscular reeducation OT Plan: Skilled OT OT Frequency : 5 days per week OT Duration of Sessions: PRN OT Treatments per day: 1 time per day OT Discharge Recommendations: Inpatient rehab facility placement Encounter Problems Encounter Problems (Active) Template: Occupational Therapy Problem: Balance Goal: Maintains static standing balance without upper extremity support Dates: Start: 11/12/22 Expected End: 11/21/22 Description: Goal Type: STG, Performance Level: Stand by Assist Outcomes Date/Time User Outcome 11/18/22 1507 Tresa Plam OT Progressing Problem: Compromised Skin Integrity Goal: Patient demonstrates pressure reduction techniques Dates: Start: 11/12/22 Expected End: 11/21/22 Description: Goal Type: STG, Performance Level: Independent Outcomes Date/Time User Outcome 11/18/22 1236 Alise Junior RN Progressing Goal Note filed on 11/18/22 1507 by Tresa Palm OT Goal not addressed at this time Problem: Dressing Upper Extremities Goal: Patient will demonstrate use of appropriate intervention for safe dressing of upper extremities Dates: Start: 11/12/22 Expected End: 11/21/22 Description: Goal Type: STG, Performance Level: Stand by Assist Outcomes Date/Time User Outcome 11/18/22 1236 Alise Junior RN Progressing Goal Note filed on 11/18/22 1507 by Tresa Palm OT Goal not addressed at this time Problem: Dressings Lower Extremities Goal: Patient will utilize adaptive techniques/equipment to dress lower body Dates: Start: 11/12/22 Expected End: 11/21/22 Description: Goal Type: STG, Performance Level: Mod assist Outcomes Date/Time User Outcome 11/18/22 1236 Alise Junior RN Progressing Goal Note filed on 11/18/22 1507 by Tresa Palm OT Goal not addressed at this time Problem: Safety Goal: Patient will adhere to cervical and back precautions during ADL's and transfers Dates: Start: 11/12/22 Expected End: 11/21/22 Description: Goal Type: STG, Performance Level: Independent Outcomes Date/Time User Outcome 11/18/22 1507 Tresa Palm OT Progressing Problem: Transfers Goal: Patient will perform toilet transfer Dates: Start: 11/12/22 Expected End: 11/21/22 Description: Goal Type: STG, Performance Level: Mod assist and Sliding board Outcomes Date/Time User Outcome 11/18/22 1236 Alise Junior RN Progressing Goal Note filed on 11/18/22 1507 by Tresa Palm OT Goal not addressed at this time Encounter Problems (Resolved) There are no resolved problems. EDUCATION Education Documentation ADL Training, taught by Tresa Palm OT at 11/18/2022 3:09 PM. Learner: Patient Readiness: Acceptance Method: Explanation Response: Demonstrated Understanding, Needs Reinforcement Precautions, taught by Tresa Palm OT at 11/18/2022 3:08 PM. Learner: Patient Readiness: Acceptance Method: Explanation Response: Verbalizes Understanding, Needs Reinforcement Education Comments No comments found. * Alise Junior RN - 11/18/2022 12:36 PM EST Problem: Cognitive: Goal: Last Known Fall Outcome: Progressing Goal: Mobility requiring assistance of person or device Outcome: Progressing Goal: Dizziness Outcome: Progressing Goal: Medications Outcome: Progressing Goal: Mental Status/LOC/Awareness Outcome: Progressing Goal: Toileting Needs Outcome: Progressing Goal: Volume and Electrolyte Status Outcome: Progressing Goal: Communication/Sensory Outcome: Progressing Goal: Behavior Outcome: Progressing Problem: Health Behavior: Goal: Patient Specific Outcome Outcome: Progressing Problem: Sensory: Goal: Demonstrates/reports adequate pain control Outcome: Progressing Problem: Coping: Goal: Verbalizations of alleviation of anxiety will increase Outcome: Progressing Problem: Cognitive: Goal: Knowledge of disease or condition will improve Outcome: Progressing Problem: Physical Regulation: Goal: Postoperative complications will be avoided or minimized Outcome: Progressing Goal: Ability to maintain clinical measurements within normal limits will improve Outcome: Progressing Problem: Skin Integrity: Goal: Patient will remain free of injury and skin integrity maintained Outcome: Progressing Problem: Respiratory: Goal: Knowledge of WILFREDO (Obstructive Sleep Apnea) risk and follow-up will improve Outcome: Progressing Problem: Balance Goal: Maintains dynamic sitting balance with upper extremity support Outcome: Progressing Problem: Mobility Goal: Patient will propel the wheelchair Outcome: Progressing Problem: Safety Goal: Patient will adhere to spine precautions during the completion of mobility skills Outcome: Progressing Problem: Transfers Goal: Patient to transfer to and from sit to supine via logroll Outcome: Progressing Goal: Patient will roll via logroll Outcome: Progressing Goal: Pt to complete slide board transfer to/from wheelchair with Outcome: Progressing Problem: Balance Goal: Maintains static standing balance without upper extremity support Outcome: Progressing Problem: Dressings Lower Extremities Goal: Patient will utilize adaptive techniques/equipment to dress lower body Outcome: Progressing Problem: Dressing Upper Extremities Goal: Patient will demonstrate use of appropriate intervention for safe dressing of upper extremities Outcome: Progressing Problem: Safety Goal: Patient will adhere to cervical and back precautions during ADL's and transfers Outcome: Progressing Problem: Transfers Goal: Patient will perform toilet transfer Outcome: Progressing Problem: Compromised Skin Integrity Goal: Patient demonstrates pressure reduction techniques Outcome: Progressing Goals: Identify possible barriers to meeting goals/advancing plan of care: anxiety Stability of the patient: Moderately Unstable - Medium risk of patient condition declining or worsening End of Shift Summary: Discussed plan extensively with Oncology, PT, and CM teams. Oncology engaged in a lengthy, clear discussion with pt regarding POC and expectation for the future (including detention living as pt currently has second floor apt). CM also engaged family in discharge planning discussions. Pt and family provided education and all questions answered. Will continue to await final discharge facility. * Gabbi Beckford RN - 11/18/2022 12:18 PM EST MDRs completed and chart reviewed. Patient remains in house awaiting placement. Spoke with patient regarding plan and [facility] plans. CM explained that [facility] not accept d/t d/c plan. CM asked if family could come live with him or if he can live with them. He stated he has not thought thatfar. He was thinking he may need to retire and was about to sign up for medicare. Oncology came to room. CM informed patient of returning after. Spoke with [facility] and they will not be able to take him now due to having to take on chemo cost. Spoke with sister Coty regarding plan. 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 CM updated [facility]. [facility] and [facility]. * Emanuel Guerra MD - 11/18/2022 12:11 PM EST Brief Radiation Oncology Note Patient now one week out from thoracic decompression and removal of epidural tumor at T2 and T7 by lamiectomy, facetectomy, and foraminotomy; posterior thoracic fusion C7-4; blood work/pathology consistent with multiple myeloma Discharge planning is major issue Discussed with Dr. Malone. Given extent of disease and that patient had the decompressive surgery, one thought would be to proceed with systemic therapy upfront without delay and then interdigitate radiation therapy (likely 5 fractions to thoracic spine) between cycles of systemic therapy. The patient will require further healing before being able to proceed with therapy. Will follow. -Emanuel Guerra MD * Tico Fox MD - 11/18/2022 11:47 AM EST Images from the original note were not included. 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 -MRI of the C/T/L-spine on 11/10/2022 showed suspected pathology compression fracture at T2 and T7 levels and substantial epidural tumor at T7 level with compression of the cord, along with multiple bone lesions described as metastatic in nature throughout the spine and pelvis. -CT of the C/A/P on 11/10/2022 showed multiple lytic lesions throughout the skeleton, mildly enlarged hilar and mediastinal lymph nodes but no solid tumors or masses. -11/10/2022 SPEP showed a possible milligram gammopathy. However, [place]/lambda ratio was 114.51 -11/11/2022 the patient underwent thoracic decompression and removal of epidural tumor at T2 and T7 by laminectomy, facetectomy and foraminotomy and posterior fusion C7-T4. Biopsy of theEpidural mass showed a kappa restricted plasma cell neoplasm. Subjective: The patient is laying in bed. Comfortable. Fortunately he does not have any improvementin his motor function. Sensation is also significantly increased. Exam: GEN: well appearing, NAd HEENT: PERRLA, oropharynx clear LYMPH: No cervical, supraclavicular, axillary LN, Inguinal or popliteal lymphadenopathy CV: RRR, S1S2, no murmurs PULM: CTAB, no wheezes, rales, or rhonchi ABD: soft, nontender, nondistended, no ascites, no HSM EXT: no edema MSK: full ROM NEURO: Bilateral lower extremities show significant decrease in the strength, 0 out of 5 on the dorsiflexion knee flexion knee extension and hip flexion. Some strength in the hip abduction, 3 out of 5. Sensation still present in both lower extremities. SKIN: no rash, petechiae, ecchymoses Data Review: LABS: No results found for this or any previous visit (from the past 24 hour(s)). IMAGING: @IMAGES@ PATHOLOGY: Order Name Source Comment Collection Info Order Time TISSUE EXAM Spine, Thoracic Collected By: Ish Tao Jr., MD 11/11/2022 5:49 PM Assessment and Plan: 1. Plasmacytoma of the thoracic spine, with spinal cord involvement. 2. T7 and T2 compression fracture, pathological. 2. Multiple myeloma, kappa restricted. Newly diagnosed I had a long discussion with the patient regarding his current status and our inability to predict whether he is going to regain any neurological function in the lower extremities. I discussed with him that fortunately there is a significant possibility that he will not regain function to the point that he will be able to walk again. This will significantly impact his treatment planning, given that transportation will be needed from what ever he is through the place of treatment, whether his radiation or the infusion center. For informational purposes, he will receive systemic treatment that will require to be seen at least 1 day every week for a subcutaneous injection (subcutaneous bortezomib, oral lenalidomide and oraldexamethasone/VRD), and this is not the ideal treatment for him given that he is a transplant candidate. I have also discussed with radiation oncology timing of radiation which might be given in between cycles of VRD. Even if we start treatment in the hospital, he will still need to be seen in the office for subsequent treatments. Recommendations: 1. The earliest date that we can start treatment safely will be approximately 2 weeks after surgery, which will be at the end of October. 2. We will absolutely need the assistance of social workers and the family to determine what is thebest situation for this gentleman. 3. It would be important if neurosurgery can assist in discussing with the patient the likelihood of him walking again. From my standpoint, I have discussed with him over 30 minutes today that this is unfortunately seeming less likely every day. We will follow with you. Please call with questions! Tico Fox MD * Laury Lau PTA - 11/18/2022 9:00 AM EST [facility] Physical Therapy Treatment Multi-Disciplinary Rounding Report Ambulation: Walking Assistance: Not attempted, medical/safety concerns PLOF: Level of Long: Independent with mobility and functional transfers Lives With: Alone Type of Home: Apartment Home Adaptive Equipment: None Home Layout: One level Home Access: Stairs to enter with rails Prior Function Comments: Pt functioned independently at baseline until Wednesday when his legs became weak resulting in a couple falls that preceeded this admission. DME Needs: TBD PT Discharge Recommendation: Inpatient rehab facility placement Reason for current recommendation based on assessment: PT continues to strongly recommend IPR at discharge to work toward a modified independent level of function as well as to educate pt on how to complete ADLs and maintain bowel/bladder functions. Subjective Pt was cleared for physical therapy services by RN. Patient supine in bed at start of the session. Pt pleasant and eager to work with PT. Objective 11/18/22 0900 PT Last Visit PT Received On 11/18/22 General Family/Caregiver Present No PT Time Calculation PT Start Time 0900 PT Stop Time 0941 PT Time Calculation (min) 41 min Precautions Medical Precautions Fall Risk Safety Interventions Call lock within reach;ID band on;Gait belt Orthopedic Precautions Cervical Precautions Orthoses Applied (no Brace per Neuro) Oxygen Therapy Oxygen Therapy None (Room air) Pain Assessment Pain Assessment No/denies pain Response to Interventions no c/o pain during session Cognition Orientation Level Oriented X4 Activity Tolerance Endurance Tolerates 30+ min exercise without fatigue Activity Tolerance Comments pt very motivated Static Sitting Balance Static Sitting-Level of Assistance Contact guard Static Sitting-Balance Support Feet supported;Right upper extremity supported;Left upper extremity supported Dynamic Sitting Balance Dynamic Sitting-Level of Assistance Minimum assistance;Moderate assistance Dynamic Sitting-Balance Lateral lean;Trunk control activities Dynamic Sitting-Balance Support Feet supported Bed Mobility Rolling Left Assistance Maximum assistance;Maximum verbal cues;Maximum tactile cues Lying to Sitting Assistance Maximum assistance Bed Mobility Comments max A sup > sit EOB via logroll technique Transfers Sit to Stand Assistance Maximum assistance;Maximum verbal cues;Moderate tactile cues Chair/Bed to Chair/Bed Transfer Assistance Maximum assistance;Maximum verbal cues;Maximum tactile cues Bed to/from Chair Transfer Technique Lateral with transfer board;To left Transfer Comments slide board transfer bed > w/c with max cues and assist for lateral lean, headhips relation and hand placement. Pts hips began to slide anteriorly in w/c. With cues and B LE blocking, pt was able to use UEs on armrest to scoot hips back into w/c successfully Wheelchair Wheelchair Assistance Minimum assistance;Moderate verbal cues Wheelchair Distance (ft) 100 (x4) Wheelchair Comment 100' x4 with B UE propulsion. Slight veering to the R (pt states R wheel of w/c is difficult to push). Pt did well managing obstacles, traffic and in room/small spaces demo safe use of w/c. Ambulation Walking Assistance Not attempted, medical/safety concerns Procedures Procedures Balance/Neuromuscular Re-Education;Aquatic Therapy;Therapeutic Activity;Wheelchair Management Balance/Neuromuscular Re-Education Neuromuscular Re-Education Time Entry 15 Balance/Neuromuscular Re-Education Activity 1 seated static and dynamic core/trunk stabilization Therapeutic Activity Therapeutic Activity Time Entry 10 Therapeutic Activity 1 reviewed cervical precautions Therapeutic Activity 2 bed mob with emphasis on logroll technqiue Therapeutic Activity 3 slide board transfers bed > w/c Wheelchair Management Wheelchair Management Time Entry 16 Wheelchair Management Activity 1 see above PT Assessment PT Assessment/ Barriers to discharge Decreased strength;Decreased endurance;Impaired balance;Decreased mobility;Decreased coordination;Orthopedic restrictions Prognosis Good Evaluation/Treatment Tolerance Patient tolerated treatment well Medical Staff Made Aware Yes Comments JOHN Carrero Plan Treatment/Interventions Functional transfer training;LE strengthening/ROM;Endurance training;Bed mobility;Balance training PT Plan Skilled PT PT Frequency 7 days per week PT Treatments per day 1-2 times per day PT Discharge Recommendations Inpatient rehab facility placement Equipment Recommended TBD Goals/Education Encounter Problems Encounter Problems (Active) Template: Physical Therapy Problem: Balance Goal: Maintains static sitting balance without upper extremity support (Resolved) Dates: Start: 11/12/22 Expected End: 11/27/22 Met: 11/15/22 Description: X 2 minutes with CGA Outcomes Date/Time User Outcome 11/15/22 1044 Gisel Shaffer, PT Completed Goal: Maintains dynamic sitting balance with upper extremity support Dates: Start: 11/12/22 Expected End: 11/21/22 Description: X 5 minutes with no greater than Varun required to recover from LOB Outcomes Date/Time User Outcome 11/18/22 Anatoliy Lau PTA Progressing Problem: Mobility Goal: Patient will propel the wheelchair Dates: Start: 11/12/22 Expected End: 11/21/22 Description: 100 feet without rest break with close supervision in wide open space of hallway Outcomes Date/Time User Outcome 11/18/22 Anatoliy Lau PTA Progressing Problem: Safety Goal: Patient will adhere to spine precautions during the completion of mobility skills Dates: Start: 11/12/22 Expected End: 11/21/22 Description: Minimal verbal cues Outcomes Date/Time User Outcome 11/18/22 Anatoliy Lau PTA Progressing Problem: Transfers Goal: Patient to transfer to and from sit to supine via logroll Dates: Start: 11/12/22 Expected End: 11/21/22 Description: ModA Outcomes Date/Time User Outcome 11/18/22 Anatoliy Lau PTA Progressing Goal: Patient will roll via logroll Dates: Start: 11/12/22 Expected End: 11/21/22 Description: ModA Outcomes Date/Time User Outcome 11/18/22 Anatoliy Lau PTA Progressing Goal: Pt to complete slide board transfer to/from wheelchair with Dates: Start: 11/12/22 Expected End: 11/21/22 Description: ModA Outcomes Date/Time User Outcome 11/18/22 Anatoliy Lau PTA Progressing Encounter Problems (Resolved) There are no resolved problems. Education Documentation Spine Precautions, taught by Laury Lau PTA at 11/18/2022 9:00 AM. Learner: Patient Readiness: Acceptance Method: Explanation, Demonstration Response: Verbalizes Understanding, Needs Reinforcement Body Mechanics, taught by Laury Lau PTA at 11/18/2022 9:00 AM. Learner: Patient Readiness: Acceptance Method: Explanation, Demonstration Response: Verbalizes Understanding, Needs Reinforcement Mobility Training, taught by Laury Lau PTA at 11/18/2022 9:00 AM. Learner: Patient Readiness: Acceptance Method: Explanation, Demonstration Response: Verbalizes Understanding, Needs Reinforcement Education Comments No comments found. * Lia Barnett LPN - 11/17/2022 7:08 PM EST Goals: Problem: Cognitive: Goal: Mobility requiring assistance of person or device Outcome: Progressing Problem: Cognitive: Goal: Dizziness Outcome: Progressing Identify possible barriers to meeting goals/advancing plan of care: discharge hesitation due to possible delay in radiation therapy Stability of the patient: Moderately Stable - Low risk of patient condition declining or worsening End of Shift Summary: pain managed with steroid medication, awaiting finalization of discharge plan * Brie Ulloa RN - 11/17/2022 4:13 PM EST Received call from [facility]ish[facility] ([place] [phone], stated she spoke to patient regarding patient having oncology appointment 11/30. Therefore, radiation treatment would need to be delayed d/t IPR not able to transport patient back and forth. Patient hesitant delaying radiation treatment and wouldlike to speak to oncology treatment team before deciding if he wants to delay treatment. Patient todecide tomorrow. * Dale Chaves DO - 11/17/2022 2:45 PM EST Images from the original note were not included. Dale Chaves DO [facility] Hospitalists Daily Progress Note Patient Name: Armand Barron PCP: Salena Flores NP Perpetual Assessment: Armand Barron is a 67 y.o. male who presented from home on 11/10/2022 with past medical history of essential hypertension presented with complaints of bilateral lower extremity complete paralysis. Found to have cord compression felt to be related to malignancy Oncology and neurosurgery consulted Assessment and Plan Acute bilateral lower extremity paralysis Compression fractures, T2 and T7 Multiple Myeloma Cord compression -Presented with bilateral lower extremity acute weakness /paralysis and was unable to move his legs -Imaging as noted below, shows T2 and T7 compression fractures, cord compression due to epidural tumor. -CT chest /abdomen also done- results reviewed, mediastinal/ hilar lymphadenpathy and osseus lesions showing compression and central canal involvement, no clear cut primary tumor -Neurosurgery consulted for cord compression and has discussed with oncology, neurosurgery took patient to OR for decompression/ biopsy of tumor on 11/11/22, pt underwent Thoracic decompression and removal of epidural tumor at T2 and T7 by laminectomy, facetectomy, and foraminotomy. Posterior thoracic fusion C7-T4 by pedicle screw fixation -Appreciate Neurosurgery; pt to avoid AP, AC, Nsaids, follow up as outpt -Appreciate rad onc: follow up 11/30 -Appreciate med onc: dx of path as MM, will follow up as outpatient -Continue dexamethasone. -PT/OT consulted and recommending IPR. -Vanegas Catheter remains in place Acute kidney injury; resolved -Baseline creatinine normal, creatinine on presentation 1.5. -Patient did receive contrast for MRI and CTs -started on IV fluids and Cr resolved back to 0.6-0.7 -Continue to avoid nephrotoxins. Essential hypertension - continue home metoprolol and Norvasc - blood pressures reviewed and in acceptable ranges - will continue to monitor bp and make adjustments as needed Hypothyroidism - continue synthroid per home regimen - stable with no acute issues Hyperlipidemia - continue statin per home regimen - stable with no acute issues GERD -continue PPI Constipation -Likely due to cord compression. -continue bowel regimen Code Status: Full Code - Default DVT Prophylaxis: scd/teds NO anticoagulants or antiplatelets or NSAIDs per neurosurgery Expected Date of Discharge: Currently awaiting acceptance/pre-CERT to [facility] Medical/Social Complexity and Disposition: Patient requires continued hospitalization recovery from neurosurgery performed on 11/11 as above, workup positive for MM. Pt will dc to [facility]. History CC: leg weakness HPI and ROS: Patient seen and examined. He is still weak in his LEs. We discussed again plan of care. He understands dx is MM. He will hopefully regain some strength at IPR. He will start on radiation and systemic treatment with his planned follow ups with rad-onc, heme-onc. He hopes to get stronger, is overwhelmed by all the things that are occurring. Physical Examination Temp: 36.7 C (98.1 F) (11/17 1114) Heart Rate: 54 (11/17 1114) Resp: 18 (11/17 0324) BP: 121/77 (11/17 1114) GENERAL: Awake, not in distress CV: Regular rate and rhythm, no murmurs. RESP: Clear to auscultation bilaterally GI: Soft, non-tender. NEURO: Alert, Ox3. Lower extremity paralysis Reviewed 11/17/22 2:45 PM EST: [x] Laboratory [] Radiology [] Cardiology [x] Medications [x] Transcriptions [] Microbiology [x] Outside Records [] Family * Edyta Harrison OT - 11/17/2022 1:47 PM EST Patient: Armand Barron Age: 67 y.o. Sex: male Weakness [facility] Occupational Therapy Treatment Multi-Disciplinary Rounding Report Ambulation: Functional Mobility Walking Assistance: Not attempted, medical/safety concerns PLOF: Level of Long: Independent with mobility and functional transfers Lives With: Alone Type of Home: Apartment Home Adaptive Equipment: None Home Layout: One level Home Access: Stairs to enter with rails Prior Function Comments: Pt functioned independently at baseline until Wednesday when his legs became weak resulting in a couple falls that preceeded this admission. 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 Pt needs max assist [id number] for funtional mobility and mod to max assist for ADLS. Pt would benefit from an spinal cord inpatient rehab program to regain his independence SUBJECTIVE Pt was cleared for occupational therapy services by RN. Patient received supine in bed at start of the session. Pt with subjective reports of feeling a little overwhelmed with things this date and was agreeable to participate in this therapy session. Patient was seen as a co-treat with physical therapy services secondary to medically complexity of the patient and requirement for two skilled persons to mobilize the patient safely. OBJECTIVE Precautions: Precautions Medical Precautions: Fall Risk Safety Interventions: Call lock within reach, ID band on Orthopedic Precautions: Cervical Precautions Orthoses Applied: (No brace needed) Vitals/Pain: Oxygen Therapy Oxygen Therapy: None (Room air) Pain Assessment Pain Assessment: 0-10 Pain Score: 2 Pain Location: Neck Pain Orientation: Posterior Clinical Progression: Not changed Pain Interventions: Repositioned, Rest Response to Interventions: no change in pain a end of session General Assessments: Bed Mobility Rolling Right Assistance: Maximum assistance Rolling Left Assistance: Maximum assistance Sitting to Lying Assistance: Maximum assistance (x2) Lying to Sitting Assistance: Maximum assistance (x2) Functional Transfers Sit to Stand Assistance: Not attempted, medical/safety concerns Functional Mobility Walking Assistance: Not attempted, medical/safety concerns Static Sitting Balance Static Sitting-Level of Assistance: Contact guard Dynamic Sitting Balance Dynamic Sitting-Level of Assistance: Moderate assistance Static Standing Balance Static Standing-Level of Assistance: Not attempted, medical/safety concerns Dynamic Standing Balance Dynamic Standing-Level of Assistance: Not attempted, medical/safety concerns Cognitive Status: Cognition Arousal/Alertness: Appropriate responses to stimuli Orientation Level: Oriented X4 Following Commands: Follows all commands and directions without difficulty Safety Judgment: Good awareness of safety precautions Deficits: Fully aware of deficits Attention Span: Appears intact Memory: Appears intact Extremity Assessments: Hand Function Gross Grasp: Functional RUE Assessment RUE Assessment: Within Functional Limits RUE Assessment Comments: shouler flez/abd 90 within cervical precautions LUE Assessment LUE Assessment: Within Functional Limits LUE Assessment Comments: shouler flez/abd 90 within cervical precautions ADLs/IADLs: Grooming Grooming Level of Assistance: Setup UE Dressing UE Dressing Level of Assistance: Minimum assistance LE Dressing Sock Level of Assistance: Dependent Procedure/Treatment: Therapeutic Activity Therapeutic Activity Time Entry: 10 Therapeutic Activity 1: Pt needed max assist x2 to perform supine to sit. Pt tolerated sitting EOB working on sitting balance. Pt able to maintain static sitting balance with occassional assist. Pt needing assist with dynamic sitting balance acitivities. Pt needed max assist x2 to perform supine tosit. Pt somewhat overwhelmed with information of new dx of multiple myeloma and IPR information andchoices. ASSESSMENT Pt demonstrated Good tolerance to this therapy session. Pt left supine in bed with call light within reach and all needs met. RN notified of patients progress and level of assist required for mobility. Patient is progressing and plan of care is ongoing. OT is recommending OT Discharge Recommendations: Inpatient rehab facility placement and Equipment Recommended: Bedside commode at discharge. OT Assessment OT Assessment/ Barriers to Discharge: Decreased ADL status, Decreased upper extremity strength, Decreased endurance, Decreased trunk control for functional activities, Decreased functional mobility Prognosis: Good Evaluation/Treatment Tolerance: Patient tolerated treatment well Medical Staff Made Aware: Yes PLAN Acute Care Plan: Treatment Interventions: ADL retraining, Functional transfer training, UE strengthening/ROM, Endurance training, Neuromuscular reeducation OT Plan: Skilled OT OT Frequency : 5 days per week OT Duration of Sessions: PRN OT Treatments per day: 1 time per day OT Discharge Recommendations: Inpatient rehab facility placement Equipment Recommended: Bedside commode Encounter Problems Encounter Problems (Active) Template: Occupational Therapy Problem: Balance Goal: Maintains static standing balance without upper extremity support Dates: Start: 11/12/22 Expected End: 11/26/22 Description: Goal Type: STG, Performance Level: Stand by Assist Outcomes Date/Time User Outcome 11/17/22 1604 Edyta Harrison OT Progressing Problem: Compromised Skin Integrity Goal: Patient demonstrates pressure reduction techniques Dates: Start: 11/12/22 Expected End: 11/26/22 Description: Goal Type: STG, Performance Level: Independent Outcomes Date/Time User Outcome 11/17/22 1604 Edyta Harrison OT Progressing Problem: Dressing Upper Extremities Goal: Patient will demonstrate use of appropriate intervention for safe dressing of upper extremities Dates: Start: 11/12/22 Expected End: 11/26/22 Description: Goal Type: STG, Performance Level: Stand by Assist Outcomes Date/Time User Outcome 11/17/22 1604 Edyta Harrison OT Progressing Problem: Dressings Lower Extremities Goal: Patient will utilize adaptive techniques/equipment to dress lower body Dates: Start: 11/12/22 Expected End: 11/26/22 Description: Goal Type: STG, Performance Level: Mod assist Outcomes Date/Time User Outcome 11/17/22 1604 Edyta Harrison OT Progressing Problem: Safety Goal: Patient will adhere to cervical and back precautions during ADL's and transfers Dates: Start: 11/12/22 Expected End: 11/26/22 Description: Goal Type: STG, Performance Level: Independent Outcomes Date/Time User Outcome 11/17/22 0126 Paige Knight LPN Progressing Problem: Transfers Goal: Patient will perform toilet transfer Dates: Start: 11/12/22 Expected End: 11/26/22 Description: Goal Type: STG, Performance Level: Mod assist and Sliding board Outcomes Date/Time User Outcome 11/17/22 0126 Paige Knight LPN Progressing Encounter Problems (Resolved) There are no resolved problems. EDUCATION Education Documentation No documentation found. Education Comments No comments found. * Natasha Cisneros PTA - 11/17/2022 1:46 PM EST Physical Therapy Patient: Armand Barron Age: 67 y.o. Sex: male Weakness [facility] Physical Therapy Treatment Multi-Disciplinary Rounding Report Ambulation: Walking Assistance: Not attempted, medical/safety concerns PLOF: Level of Long: Independent with mobility and functional transfers Lives With: Alone Type of Home: Apartment Home Adaptive Equipment: None Home Layout: One level Home Access: Stairs to enter with rails Prior Function Comments: Pt functioned independently at baseline until Wednesday when his legs became weak resulting in a couple falls that preceeded this admission. DME Needs: (to be determined at the next level of care) PT Discharge Recommendation: Inpatient rehab facility placement Reason for current recommendation based on assessment: PT continues to strongly recommend IPR at discharge to work toward a modified independent level of function as well as to educate pt on how to complete ADLs and maintain bowel/bladder functions. SUBJECTIVE Pt cleared by SAP BUSINESS INTELLIGENCE CONSULTANT Mere to be seen. OT co-treat indicated this date to ensure maximal safety and participation, billing reflects co-treat. Pt sitting up in bed upon entry, agreeable to therapy at thistime. Pt reports neck pain 2/ to start session. OBJECTIVE Precautions: Precautions Medical Precautions: Fall Risk Safety Interventions: Call lock within reach, ID band on, Gait belt Orthopedic Precautions: Cervical Precautions, Back Precautions Orthoses Applied: (no brace needed) Vitals/Pain: Oxygen Therapy Oxygen Therapy: None (Room air) Pain Assessment Pain Assessment: 0-10 Pain Score: 2 Pain Location: Neck Pain Orientation: Posterior Pain Descriptors: Aching Clinical Progression: Not changed Pain Interventions: Repositioned, Rest Response to Interventions: pt reports no changes in pain level following mobility Cognition: Cognition Arousal/Alertness: Appropriate responses to stimuli Orientation Level: Oriented X4 Following Commands: Follows all commands and directions without difficulty General Assessments: Activity Tolerance Endurance: Tolerates 30 min exercise with multiple rests Static Sitting Balance Static Sitting-Level of Assistance: Contact guard, Minimum assistance Static Sitting-Balance Support: Feet supported, Right upper extremity supported, Left upper extremity supported Static Sitting-Comment/Number of Minutes: pt sitting up EOB x 10 minutes with APERTURE MASK ETCHER and SAP BUSINESS INTELLIGENCE CONSULTANT present for dressing change at incision site 2 excessive drainage Dynamic Sitting Balance Dynamic Sitting-Level of Assistance: Moderate assistance, Maximum assistance Dynamic Sitting-Balance Support: Feet supported Dynamic Sitting-Comments: pt sitting up EOB with minimal to no UE support with increased posterior leaning, mod/max to maintain midline sitting Static Standing Balance Static Standing-Level of Assistance: Not attempted, medical/safety concerns Dynamic Standing Balance Dynamic Standing-Level of Assistance: Not attempted, medical/safety concerns Functional Assessments: Bed Mobility Rolling Right Assistance: Moderate assistance, Maximum assistance, Moderate verbal cues Rolling Left Assistance: Moderate assistance, Maximum assistance, Moderate verbal cues Sitting to Lying Assistance: Maximum assistance Lying to Sitting Assistance: Maximum assistance Bed Mobility Comments: x 2 assist, pt req'd increased assist to complete logrolling technique and trunk advancement to safely complete sit<>supine mobility Transfers Sit to Stand Assistance: Not attempted, medical/safety concerns Transfer Comments: deferred this date 2 excessive drainage at incision site and changing of dressing Ambulation Walking Assistance: Not attempted, medical/safety concerns Comments: Pt does not at present have the strength in his legs to accomodate walking Procedure/Treatment: Balance/Neuromuscular Re-Education Neuromuscular Re-Education Time Entry: 15 Balance/Neuromuscular Re-Education Activity 1: focus on sitting balance/tolerance EOB Other Activities: ASSESSMENT Pt demo'd fair tolerance of session, returning to supine in bed with call light within reach and all needs met. SAP BUSINESS INTELLIGENCE CONSULTANT aware of pt status/position and level of assist for safe functional mobility. Pt isprogressing toward goals of ongoing plan of care. PT Assessment/ Barriers to discharge: Decreased strength, Decreased endurance, Impaired balance, Impaired gait, Decreased mobility, Orthopedic restrictions Prognosis: Fair Evaluation/Treatment Tolerance: Patient tolerated treatment well Medical Staff Made Aware: Yes Comments: RN aware of pt status/position at end of session PLAN Acute Care Plan: Treatment/Interventions: Functional transfer training, Endurance training, Patient/family training,Bed mobility, Compensatory technique education, Balance training PT Plan: Skilled PT PT Frequency: 7 days per week PT Treatments per day: 1-2 times per day PT Discharge Recommendations: Inpatient rehab facility placement Equipment Recommended: (to be determined at the next level of care) Time Spent: PT Time Calculation PT Start Time: 1346 PT Stop Time: 1416 PT Time Calculation (min): 30 min Time Entry: PT Therapeutic Procedures Time Entry Neuromuscular Re-Education Time Entry: 15 Goals: Encounter Problems Encounter Problems (Active) Template: Physical Therapy Problem: Balance Goal: Maintains static sitting balance without upper extremity support (Resolved) Dates: Start: 11/12/22 Expected End: 11/27/22 Met: 11/15/22 Description: X 2 minutes with CGA Outcomes Date/Time User Outcome 11/15/22 1044 Gisel Shaffer, PT Completed Goal: Maintains dynamic sitting balance with upper extremity support Dates: Start: 11/12/22 Expected End: 11/27/22 Description: X 5 minutes with no greater than Varun required to recover from LOB Outcomes Date/Time User Outcome 11/17/22 1520 Natasha Cisneros PTA Progressing Problem: Mobility Goal: Patient will propel the wheelchair Dates: Start: 11/12/22 Expected End: 11/27/22 Description: 100 feet without rest break with close supervision in wide open space of hallway Outcomes Date/Time User Outcome 11/17/22 0126 Paige Knight LPN Progressing Problem: Safety Goal: Patient will adhere to spine precautions during the completion of mobility skills Dates: Start: 11/12/22 Expected End: 11/27/22 Description: Minimal verbal cues Outcomes Date/Time User Outcome 11/17/22 1520 Natasha Cisneros PTA Progressing Problem: Transfers Goal: Patient to transfer to and from sit to supine via logroll Dates: Start: 11/12/22 Expected End: 11/27/22 Description: ModA Outcomes Date/Time User Outcome 11/17/22 1520 Natasha Cisneros PTA Progressing Goal: Patient will roll via logroll Dates: Start: 11/12/22 Expected End: 11/27/22 Description: ModA Outcomes Date/Time User Outcome 11/17/22 1520 Natasha Cisneros PTA Progressing Goal: Pt to complete slide board transfer to/from wheelchair with Dates: Start: 11/12/22 Expected End: 11/27/22 Description: ModA Outcomes Date/Time User Outcome 11/17/22 012Amanda Knight LPN Progressing Encounter Problems (Resolved) There are no resolved problems. EDUCATION Education Documentation Spine Precautions, taught by Natasha Cisneros PTA at 11/17/2022 1:46 PM. Learner: Patient Readiness: Acceptance Method: Explanation, Demonstration Response: Verbalizes Understanding, Needs Reinforcement Body Mechanics, taught by Natasha Cisneros PTA at 11/17/2022 1:46 PM. Learner: Patient Readiness: Acceptance Method: Explanation, Demonstration Response: Verbalizes Understanding, Needs Reinforcement Mobility Training, taught by Natasha Cisneros PTA at 11/17/2022 1:46 PM. Learner: Patient Readiness: Acceptance Method: Explanation, Demonstration Response: Verbalizes Understanding, Needs Reinforcement Education Comments No comments found. * Brie Ulloa RN - 11/17/2022 11:25 AM EST MDR's complete. Patient remains in house for continued medical management. POD 6 thoracic decompression and removal of epidural tumor at T2 and T7 by laminectomy by Dr. Tao. PT recommending IPR. Patient accepted to [facility]. CM requested pre cert to be started 11/17/2022. Patient has radiation oncology appointment 11/30/2022. Patient aware. Pathology pending. Patient will need transportation at discharge. * Tico Fox MD - 11/17/2022 11:04 AM EST Images from the original note were not included. 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 -MRI of the C/T/L-spine on 11/10/2022 showed suspected pathology compression fracture at T2 and T7 levels and substantial epidural tumor at T7 level with compression of the cord, along with multiple bone lesions described as metastatic in nature throughout the spine and pelvis. -CT of the C/A/P on 11/10/2022 showed multiple lytic lesions throughout the skeleton, mildly enlarged hilar and mediastinal lymph nodes but no solid tumors or masses. -11/10/2022 SPEP showed a possible milligram gammopathy. However, [place]/lambda ratio was 114.51 -11/11/2022 the patient underwent thoracic decompression and removal of epidural tumor at T2 and T7 by laminectomy, facetectomy and foraminotomy and posterior fusion C7-T4. Biopsy of theEpidural mass showed a kappa restricted plasma cell neoplasm. Subjective: The patient is laying in bed. Comfortable. He continues to have back pain. Improving. Continues to regain some sensation. However no motor function improvement. Anxious about walking. Exam: GEN: well appearing, NAd HEENT: PERRLA, oropharynx clear LYMPH: No cervical, supraclavicular, axillary LN, Inguinal or popliteal lymphadenopathy CV: RRR, S1S2, no murmurs PULM: CTAB, no wheezes, rales, or rhonchi ABD: soft, nontender, nondistended, no ascites, no HSM EXT: no edema MSK: full ROM NEURO: Bilateral lower extremities show significant decrease in the strength, 0 out of 5 on the dorsiflexion knee flexion knee extension and hip flexion. Some strength in the hip abduction, 3 out of 5. Sensation still present in both lower extremities. SKIN: no rash, petechiae, ecchymoses Data Review: LABS: No results found for this or any previous visit (from the past 24 hour(s)). IMAGING: @IMAGES@ PATHOLOGY: Order Name Source Comment Collection Info Order Time TISSUE EXAM Spine, Thoracic Collected By: Ish Tao Jr., MD 11/11/2022 5:49 PM Assessment and Plan: 1. Plasmacytoma of the thoracic spine, with spinal cord involvement. 2. T7 and T2 compression fracture, pathological. 2. Multiple myeloma, kappa restricted. Newly diagnosed Recommendations: 1. Radiation oncology to this surgical bed. 2. Subsequently, the patient will be started on bortezomib, lenalidomide and dexamethasone in the outpatient setting. We will ensure that this happens within a week from discharge. 3. The patient is a transplant candidate and will be referred to a transplant center for consideration. However, with current treatments, the benefit of high- dose melphalan with stem cell rescue is unclear at this time. We will follow with you. Please call with questions! Tico Fox MD * Julieta Lin NP - 11/17/2022 6:35 AM EST Neurosurgery Progress Note Patient: Armand Barron Room: [address] [place], [place] [id number] Age: 67 y.o. Attending: Dale Chaves DO Date of Service: 11/17/22 Admit: 11/10/2022 PCP: Salena Flores NP Assessment/Plan Kaleb Barron is a 67 year old male who presented to [facility] on 11/10/2022 with progressive loss of motor and sensory function in his legs over the preceding 7- 10 days. 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 A CTA C/A/P was done which did not show primary tumor. Rad/oncology was consulted. Dr. Tao took the patient to the OR on 11/11/2022. POD 6 C7-T4 posterior fusion by pedicle screw fixation T2, T7 removal of epidural tumor by laminectomy, facetectomy, foraminotomy - Neuro checks q4h - Notify NS FREDI with any change in neuro exam - Dressing: change dressing as ordered, notify NS FREDI with any signs of infection - Pain per Primary: PRN Oxycodone, Tylenol - Steroids: on Decadron 4mg q6h - Scheduled Protonix - Placed decadron wean, OK for wean per Oncology - Activity: as tolerated with assistance, log roll, no bending - PT/OT following - no brace per Dr. Tao - VTE: BLE SCD's and HARVEY's only - No anticoagulants, antiplatelets, or NSAIDS unless cleared by Neurosurgery - Bowel regimen: Scheduled Miralax, senna - Hem/Onc following - lab work is diagnostic of multiple myeloma - Rad/Onc following - surgical pathology pending - per their documentation patient will require likely post-op radiotherapy to the thoracic spine and potentially to other symptomatic sites. Would need adequate healing before proceeding with radiation treatment. Barriers to discharge: - [facility] referral pending - are anticipating denial d/t barriers to return to home setting, [facility] - OK to D/C from NS perspective Disposition: - Rad/Onc appointment for 11/30/2022 - Dr. Tao follow up appointment placed and faxed - DC instructions in - Pathology pending Neurosurgery will sign off at this time. Julieta Lin NP Send message via KDW with further questions. Greater than 25 minutes were spent including face to face interview/education, and chart review including multiple provider notes, diagnostic testing results, and lab review. Greater than 50% of timespent in face to face counseling with patient. Subjective Patient states that he is feeling ok today. He states that he does not have any pain at this time. No new complaints of numbness, tingling, nausea, or vomiting. Objective Vitals: 11/17/22 0324 BP: 133/83 Pulse: 57 Resp: 18 Temp: 36.7 C (98.1 F) SpO2: 97% Mental Status: Alert & oriented x 4 Language: Speech is fluent, non-dysarthric, able to follow commands Fund of knowledge: aware of current events, vocabulary is normal Sensation: Sensory exam completed: grossly intact to light touch, able to differentiate which leg I am touching without being able to see which leg I am touching No saddle anesthesia Motor: Muscle strength was assessed in all extremities BUE grasp/biceps/triceps/deltoid = 5/5 BLE DF/KF/KE/HF/HE = 0/5, PF = 1/5, Hip add/abd = 3/5 GI: Abdomen soft, nontender Pulmonary: Respirations are regular and unlabored Incision: Covered with mepilex, serosang drainage, deborah intact Medications Allergies: No Known Allergies Current Medications: Current Facility-Administered Medications: acetaminophen (TYLENOL) tablet 650 mg, 650 mg, oral, q6h PRN, Fahad Mccoy MD, 650 mg at 11/14/22 1435 amLODIPine (NORVASC) tablet 10 mg, 10 mg, oral, Daily, Fahad Mccoy MD, 10 mg at 11/16/22 09 atorvastatin (LIPITOR) tablet 10 mg, 10 mg, oral, Daily, Fahad Mccoy MD, 10 mg at 11/16/22 09 dexamethasone (DECADRON) injection 4 mg, 4 mg, intravenous, q6h DAVID, Renuka Addison MD, 4 mg at 11/17/22 0009 levothyroxine (SYNTHROID, LEVOTHROID) tablet 88 mcg, 88 mcg, oral, Daily, Fahad Mccoy MD, 88 mcg at 11/16/22943 metoprolol tartrate (LOPRESSOR) tablet 50 mg, 50 mg, oral, BID, Fahad Mccoy MD, 50 mg at 11/16/222037 ondansetron ODT (ZOFRAN-ODT) disintegrating tablet 4 mg, 4 mg, oral, q8h PRN OR ondansetron (PF) (ZOFRAN) injection 4 mg, 4 mg, intravenous, q8h PRN, Fahad Mccoy MD oxyCODONE (ROXICODONE) immediate release tablet 5 mg, 5 mg, oral, q4h PRN, JEFFERY Holden, 5 mg at 11/13/22 1314 pantoprazole (PROTONIX) EC tablet 40 mg, 40 mg, oral, q AM AC, Fahad Mccoy MD, 40 mg at 11/17/22 0618 polyethylene glycol (MIRALAX) packet 17 g, 17 g, oral, Daily, Louie Montiel DO, 17 g at 11/16/22 0945 promethazine (PHENERGAN) tablet 25 mg, 25 mg, oral, q6h PRN OR promethazine (PHENERGAN) suppository 25 mg, 25 mg, rectal, q12h PRN, JEFFERY Holden ropivacaine (NAROPIN) 0.5 % 246.25 mg, EPINEPHrine (ADRENALIN) 1 mg/mL 0.5 mg, ketorolac (TORADOL) 30 mg, cloNIDine (DURACLON) 80 mcg in sodium chloride 0.9 % 100 mL injection, , irrigation, Once, Ish Tao Jr., MD senna (SENOKOT) tablet 17.2 mg, 2 tablet, oral, Nightly PRN, JEFFERY Bernardo, 17.2 mg at 11/16/222037 senna (SENOKOT) tablet 8.6 mg, 1 tablet, oral, BID, Louie Montiel DO, 8.6 mg at 11/16/221 [COMPLETED] Insert peripheral IV, , , Once AND Maintain IV access, , , Until discontinued AND [COMPLETED] Saline lock IV, , , Once AND sodium chloride 0.9 % flush 10 mL, 10 mL, intravenous, BID, 10 mL at 11/16/222038 AND sodium chloride 0.9 % flush 10 mL, 10 mL, intravenous, PRN, JEFFERY Bernardo [COMPLETED] Insert peripheral IV, , , Once AND Maintain IV access, , , Until discontinued AND [COMPLETED] Saline lock IV, , , Once AND sodium chloride 0.9 % flush 10 mL, 10 mL, intravenous, BID, 10 mL at 11/16/22 2351 AND sodium chloride 0.9 % flush 10 mL, 10 mL, intravenous, PRN, Fahad Mccoy MD sodium chloride 0.9 % infusion, 125 mL/hr, intravenous, Continuous, Fahad Mccoy MD, Last Rate: 125 mL/hr at 11/13/22 0010, 125 mL/hr at 11/13/22 0010 vancomycin (VANCOCIN) 1 g in sodium chloride 0.9 % 1,000 mL OR irrigation, , irrigation, Once, Ish Tao Jr., MD Radiology/Diagnostics No new imaging to review Labs Lab Results Component Value Date CREATININE 0.71 11/16/2022 BUN 28 (H) 11/16/2022 NA 135 (L) 11/16/2022 K 4.6 11/16/2022 CL 101 11/16/2022 CO2 29 11/16/2022 WBC 10.1 11/16/2022 RBC 3.38 (L) 11/16/2022 HGB 10.6 (L) 11/16/2022 HCT 31.0 (L) 11/16/2022 PLT 227 11/16/2022 No results found for: CSFCX, URINECX, CULTURE, BLOODCX * Paige Knight LPN - 11/17/2022 1:26 AM EST Goals: Skin integrity promotion Identify possible barriers to meeting goals/advancing plan of care: mobility impairment Stability of the patient: Moderately Stable - Low risk of patient condition declining or worsening End of Shift Summary: pt offered q2 turns throughout the shift * Dale Chaves DO - 11/16/2022 4:43 PM EST Images from the original note were not included. Dale Chaves DO [facility] Hospitalists Daily Progress Note Patient Name: Armand Barron PCP: Salena Flores NP Perpetual Assessment: Armand Barron is a 67 y.o. male who presented from home on 11/10/2022 with past medical history of essential hypertension presented with complaints of bilateral lower extremity complete paralysis. 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 -MRI of the C-spine, T-spine and L-spine already done. Apart from the findings noted above, has diffuse DDD. -CT chest /abdomen also done- results reviewed, mediastinal/ hilar lymphadenpathy and osseus lesions showing compression and central canal involvement, no clear cut primary tumor -Neurosurgery consulted for cord compression and has discussed with oncology, neurosurgery took patient to OR for decompression/ biopsy of tumor on 11/11/22, pt underwent Thoracic decompression and removal of epidural tumor at T2 and T7 by laminectomy, facetectomy, and foraminotomy. Posterior thoracic fusion C7-T4 by pedicle screw fixation -Continue postop management per NSx: continue pain meds as needed (oxycodone, tylenol) , continue PT/OT, no bending -Oncology following; awaiting final tissue dx but appears to be MM -Rad/Onc consulted; will likely require postoperative radiotherapy to the thoracic spine and potentially to other symptomatic sites in 2 to 3 weeks after surgical healing -Continue dexamethasone. -PT/OT consulted and recommending IPR. -Vanegas Catheter remains in place Acute kidney injury; resolved -Baseline creatinine normal, creatinine on presentation 1.5. -Patient did receive contrast for MRI and CTs -started on IV fluids and Cr resolved back to 0.6-0.7 -Continue to avoid nephrotoxins. Essential hypertension - continue home metoprolol and Norvasc - blood pressures reviewed and in acceptable ranges - will continue to monitor bp and make adjustments as needed Hypothyroidism - continue synthroid per home regimen - stable with no acute issues Hyperlipidemia - continue statin per home regimen - stable with no acute issues GERD -continue PPI Constipation -Likely due to cord compression. -Plan as above. Code Status: Full Code - Default DVT Prophylaxis: scd/teds NO anticoagulants or antiplatelets or NSAIDs per neurosurgery Expected Date of Discharge: Currently awaiting acceptance/pre-CERT to IPR Medical/Social Complexity and Disposition: Patient requires continued hospitalization recovery from neurosurgery performed on 11/11 as above, workup in progress to determine underlying malignancy, await results of serum electrophoresis and results of epidural tumor biopsy., neurosurgery and hematology oncology following, treatment plan reviewed with patient,. Radiation oncology consulted by neurosurgery and planning for radiation treatmentlater after the patient is healed from the current surgery. Plan to dc to IPR History HPI and ROS: Patient seen and examined. He is still weak in his LEs. Awaiting tissue but appears concerning for multiple myeloma. Awaiting dc to IPR. Physical Examination Temp: 36.8 C (98.2 F) (11/16 1516) Heart Rate: 69 (11/16 1516) Resp: 18 (11/16 1516) BP: 110/74 (11/16 1516) GENERAL: Awake, not in distress CV: Regular rate and rhythm, no murmurs. RESP: Clear to auscultation bilaterally GI: Soft, non-tender. NEURO: Alert, Ox3. Lower extremity paralysis Reviewed 11/16/22 4:43 PM EST: [x] Laboratory [] Radiology [] Cardiology [x] Medications [x] Transcriptions [] Microbiology [x] Outside Records [] Family * Edyta Harrison OT - 11/16/2022 12:13 PM EST Patient: Armand Barron Age: 67 y.o. Sex: male Weakness [facility] Occupational Therapy Treatment Multi-Disciplinary Rounding Report Ambulation: Functional Mobility Walking Assistance: Not attempted, medical/safety concerns PLOF: Level of Long: Independent with mobility and functional transfers Lives With: Alone Type of Home: Apartment Home Adaptive Equipment: None Home Layout: One level Home Access: Stairs to enter with rails Prior Function Comments: Pt functioned independently at baseline until Wednesday when his legs became weak resulting in a couple falls that preceeded this admission. DME Needs: Bedside commode, Mill Operator Helper, Sock aide, Tub transfer bench (Wheelchair with removable armrests and footrests, drop arm bedside commode, slide board. 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 Pt needs max assist [id number] for funtional mobility and mod to max assist for ADLS. Pt would benefit from an spinal cord inpatient rehab program to regain his independence. SUBJECTIVE Pt was cleared for occupational therapy services by RN. Patient received supine in bed at start of the session. Pt with subjective reports of feeling ok this date and was agreeable to participate in this therapy session. Patient was seen as a co-treat with physical therapy services secondary to medically complexity of the patient and requirement for two skilled persons to mobilize the patient safely. OBJECTIVE Precautions: Precautions Medical Precautions: Fall Risk Safety Interventions: Call lock within reach, ID band on, Gait belt Orthopedic Precautions: Cervical Precautions, Back Precautions Orthoses Applied: (No brace needed) Vitals/Pain: Oxygen Therapy Oxygen Therapy: None (Room air) Pain Assessment Pain Assessment: 0-10 Pain Score: 3 Pain Type: Acute pain, Surgical pain Pain Location: Back Pain Orientation: Lower Clinical Progression: Not changed Pain Interventions: Repositioned, Rest Response to Interventions: no change in pain General Assessments: Bed Mobility Rolling Right Assistance: Maximum assistance Rolling Left Assistance: Maximum assistance Lying to Sitting Assistance: Maximum assistance (x2) Functional Transfers Sit to Stand Assistance: Not attempted, medical/safety concerns Chair/Bed to Chair/Bed Assistance: Maximal (X2, sliding board transfer) Functional Mobility Walking Assistance: Not attempted, medical/safety concerns Static Sitting Balance Static Sitting-Level of Assistance: Contact guard Dynamic Sitting Balance Dynamic Sitting-Level of Assistance: Moderate assistance Static Standing Balance Static Standing-Level of Assistance: Not attempted, medical/safety concerns Dynamic Standing Balance Dynamic Standing-Level of Assistance: Not attempted, medical/safety concerns Cognitive Status: Cognition Arousal/Alertness: Appropriate responses to stimuli Orientation Level: Oriented X4 Following Commands: Follows all commands and directions without difficulty Safety Judgment: Good awareness of safety precautions Deficits: Fully aware of deficits Attention Span: Appears intact Memory: Appears intact Extremity Assessments: Hand Function Gross Grasp: Functional Coordination Coordination: Functional RUE Assessment RUE Assessment: Within Functional Limits RUE Assessment Comments: shoulder flex/abd 90-within cervical precautions LUE Assessment LUE Assessment: Within Functional Limits LUE Assessment Comments: shoulder flex/abd 90-within cervical precautions ADLs/IADLs: Grooming Grooming Level of Assistance: Setup Toileting Toileting Level of Assistance: Dependent Procedure/Treatment: Therapeutic Activity Therapeutic Activity Time Entry: 15 Therapeutic Activity 1: Pt needed max assist x2 to perform supine to sit. Pt tolerated sitting initially needed mod assist for sitting balance, needing contact guard with practice for static sitting balance. Pt needed mod assist for dynamic sitting balance. Pt needed max assist x2 to perform sliding board transfer to w/c. Pt set up to eat lunch in w/c ASSESSMENT Pt demonstrated Good tolerance to this therapy session. Pt left sitting in bedside chair with call light within reach and all needs met. RN notified of patients progress and level of assist required for mobility. Patient is progressing and plan of care is ongoing. OT is recommending OT Discharge Rec ommendations: Inpatient rehab facility placement and Equipment Recommended: Bedside commode, Mill Operator Helper, Sock aide, Tub transfer bench (Wheelchair with removable armrests and footrests, drop arm bedsidecommode, slide board. DME needs to be further assessed at next level of care) at discharge. OT Assessment OT Assessment/ Barriers to Discharge: Decreased ADL status, Decreased upper extremity strength, Decreased endurance, Decreased functional mobility Prognosis: Good Evaluation/Treatment Tolerance: Patient tolerated treatment well Medical Staff Made Aware: Yes PLAN Acute Care Plan: Treatment Interventions: ADL retraining, Functional transfer training, UE strengthening/ROM, Endurance training, Neuromuscular reeducation OT Plan: Skilled OT OT Frequency : 5 days per week OT Duration of Sessions: PRN OT Treatments per day: 1 time per day OT Discharge Recommendations: Inpatient rehab facility placement Equipment Recommended: Bedside commode, Mill Operator Helper, Sock aide, Tub transfer bench (Wheelchair with removable armrests and footrests, drop arm bedside commode, slide board. DME needs to be further assessed at next level of care) Encounter Problems Encounter Problems (Active) Template: Occupational Therapy Problem: Balance Goal: Maintains static standing balance without upper extremity support Dates: Start: 11/12/22 Expected End: 11/26/22 Description: Goal Type: STG, Performance Level: Stand by Assist Outcomes Date/Time User Outcome 11/16/22 3842 Edyta Harrison OT Progressing Problem: Compromised Skin Integrity Goal: Patient demonstrates pressure reduction techniques Dates: Start: 11/12/22 Expected End: 11/26/22 Description: Goal Type: STG, Performance Level: Independent Outcomes Date/Time User Outcome 11/16/22 1512 Edyta Harrison OT Progressing Problem: Dressing Upper Extremities Goal: Patient will demonstrate use of appropriate intervention for safe dressing of upper extremities Dates: Start: 11/12/22 Expected End: 11/26/22 Description: Goal Type: STG, Performance Level: Stand by Assist Outcomes Date/Time User Outcome 11/16/22 1512 Edyta Harrison OT Progressing Problem: Dressings Lower Extremities Goal: Patient will utilize adaptive techniques/equipment to dress lower body Dates: Start: 11/12/22 Expected End: 11/26/22 Description: Goal Type: STG, Performance Level: Mod assist Outcomes Date/Time User Outcome 11/15/22 2344 Paige Knight LPN Progressing Problem: Safety Goal: Patient will adhere to cervical and back precautions during ADL's and transfers Dates: Start: 11/12/22 Expected End: 11/26/22 Description: Goal Type: STG, Performance Level: Independent Outcomes Date/Time User Outcome 11/16/22 1512 Edyta Harrison OT Progressing Problem: Transfers Goal: Patient will perform toilet transfer Dates: Start: 11/12/22 Expected End: 11/26/22 Description: Goal Type: STG, Performance Level: Mod assist and Sliding board Outcomes Date/Time User Outcome 11/16/22 1512 Edyta Harrison OT Progressing Encounter Problems (Resolved) There are no resolved problems. EDUCATION Education Documentation Precautions, taught by Edyta Harrison OT at 11/16/2022 3:13 PM. Learner: Patient Readiness: Acceptance Method: Explanation Response: Verbalizes Understanding ADL Training, taught by Edyta Harrison OT at 11/16/2022 3:13 PM. Learner: Patient Readiness: Acceptance Method: Explanation Response: Verbalizes Understanding Education Comments No comments found. * Natasha Cisneros PTA - 11/16/2022 12:12 PM EST Physical Therapy Patient: Armand Barron Age: 67 y.o. Sex: male Weakness [facility] Physical Therapy Treatment Multi-Disciplinary Rounding Report Ambulation: Walking Assistance: Not attempted, medical/safety concerns PLOF: Level of Long: Independent with mobility and functional transfers Lives With: Alone Type of Home: Apartment Home Adaptive Equipment: None Home Layout: One level Home Access: Stairs to enter with rails Prior Function Comments: Pt functioned independently at baseline until Wednesday when his legs became weak resulting in a couple falls that preceeded this admission. DME Needs: (to be determined at the next level of care) PT Discharge Recommendation: Inpatient rehab facility placement Reason for current recommendation based on assessment: PT continues to strongly recommend IPR at discharge to work toward a modified independent level of function as well as to educate pt on how to complete ADLs and maintain bowel/bladder functions. SUBJECTIVE Pt cleared by JOHN Santoro to be seen. OT co-treat indicated this date to ensure maximal safety and participation, billing reflects co-treat. Pt sitting up in bed upon entry, agreeable to therapy at this time. Pt reports back pain 3/ to start session. OBJECTIVE Precautions: Precautions Medical Precautions: Fall Risk Safety Interventions: Call lock within reach, Gait belt Orthopedic Precautions: Cervical Precautions, Back Precautions Orthoses Applied: (no brace needed) Vitals/Pain: Oxygen Therapy Oxygen Therapy: None (Room air) Pain Assessment Pain Assessment: 0-10 Pain Score: 3 Pain Location: Back Pain Orientation: Lower Pain Descriptors: Aching Clinical Progression: Not changed Pain Interventions: Repositioned, Rest Response to Interventions: pt reports no significant changes in pain level following mobility, reports neck stiffness throughout session Cognition: Cognition Arousal/Alertness: Appropriate responses to stimuli Orientation Level: Oriented X4 Following Commands: Follows all commands and directions without difficulty General Assessments: Activity Tolerance Endurance: Tolerates 30 min exercise with multiple rests Activity Tolerance Comments: pt very motivated to participate and complete tasks within capabilities Static Sitting Balance Static Sitting-Level of Assistance: Contact guard, Minimum assistance Static Sitting-Balance Support: Right upper extremity supported, Left upper extremity supported, Feet supported Static Sitting-Comment/Number of Minutes: pt sitting up EOB with hands on bed next to hips advancing to hands onto lap, increasing assist with less UE support, able to tolerate sitting up EOB up to 10 minutes Dynamic Sitting Balance Dynamic Sitting-Level of Assistance: Minimum assistance Dynamic Sitting-Balance: Trunk control activities Dynamic Sitting-Balance Support: Feet supported, Right upper extremity supported, Left upper extremity supported Dynamic Sitting-Comments: pt attempting complete LE mobility/activation, able to complete small movements/activation with tapping, LOB at trunk, Varun to return to midline Static Standing Balance Static Standing-Level of Assistance: Not attempted, medical/safety concerns Dynamic Standing Balance Dynamic Standing-Level of Assistance: Not attempted, medical/safety concerns Functional Assessments: Bed Mobility Rolling Left Assistance: Moderate assistance, Maximum assistance Lying to Sitting Assistance: Maximum assistance, Moderate verbal cues Bed Mobility Comments: pt req'd assist to complete logrolling technique and supine to sit mobility,sitting up in WC at end of session Transfers Sit to Stand Assistance: Not attempted, medical/safety concerns Chair/Bed to Chair/Bed Transfer Assistance: Maximum assistance, Moderate verbal cues (x2 via slide board) Bed to/from Chair Transfer Technique: Lateral with transfer board, To left Transfer Comments: poor BLE strength to safely complete sit to stand transfers this date Ambulation Walking Assistance: Not attempted, medical/safety concerns Comments: Pt does not at present have the strength in his legs to accomodate walking Procedure/Treatment: Balance/Neuromuscular Re-Education Neuromuscular Re-Education Time Entry: 12 Balance/Neuromuscular Re-Education Activity 1: focus on sitting balance/tolerance EOB Other Activities: Other Activity Other Activity 1: focus on bed mobility and slide board transfer, BLE activation/ROM ASSESSMENT Pt demo'd good tolerance of session, sitting up in WC at end of session with call light within reach and all needs met. RN aware of pt status/position and level of assist for safe functional mobility. Pt is progressing toward goals of ongoing plan of care. PT Assessment/ Barriers to discharge: Decreased strength, Decreased endurance, Impaired balance, Impaired gait, Decreased mobility, Orthopedic restrictions Prognosis: Fair Evaluation/Treatment Tolerance: Patient tolerated treatment well Medical Staff Made Aware: Yes Comments: RN aware of pt status/position at end of session PLAN Acute Care Plan: Treatment/Interventions: Functional transfer training, LE strengthening/ROM, Endurance training, Patient/family training, Bed mobility, Compensatory technique education, Balance training PT Plan: Skilled PT PT Frequency: 7 days per week PT Treatments per day: 1-2 times per day PT Discharge Recommendations: Inpatient rehab facility placement Equipment Recommended: (to be determined at the next level of care) Time Spent: PT Time Calculation PT Start Time: 1212 PT Stop Time: 1243 PT Time Calculation (min): 31 min Time Entry: PT Therapeutic Procedures Time Entry Neuromuscular Re-Education Time Entry: 12 Goals: Encounter Problems Encounter Problems (Active) Template: Physical Therapy Problem: Balance Goal: Maintains static sitting balance without upper extremity support (Resolved) Dates: Start: 11/12/22 Expected End: 11/27/22 Met: 11/15/22 Description: X 2 minutes with CGA Outcomes Date/Time User Outcome 11/15/22 1044 Gisel Shaffer, PT Completed Goal: Maintains dynamic sitting balance with upper extremity support Dates: Start: 11/12/22 Expected End: 11/27/22 Description: X 5 minutes with no greater than Varun required to recover from LOB Outcomes Date/Time User Outcome 11/16/22 1431 Natasha Cisneros PTA Progressing Problem: Mobility Goal: Patient will propel the wheelchair Dates: Start: 11/12/22 Expected End: 11/27/22 Description: 100 feet without rest break with close supervision in wide open space of hallway Outcomes Date/Time User Outcome 11/16/22 1431 Natasha Cisneros PTA Progressing Problem: Safety Goal: Patient will adhere to spine precautions during the completion of mobility skills Dates: Start: 11/12/22 Expected End: 11/27/22 Description: Minimal verbal cues Outcomes Date/Time User Outcome 11/16/22 1431 Natasha Cisneros PTA Progressing Problem: Transfers Goal: Patient to transfer to and from sit to supine via logroll Dates: Start: 11/12/22 Expected End: 11/27/22 Description: ModA Outcomes Date/Time User Outcome 11/16/22 143Chelo Cisneros PTA Progressing Goal: Patient will roll via logroll Dates: Start: 11/12/22 Expected End: 11/27/22 Description: ModA Outcomes Date/Time User Outcome 11/16/22 1431 Natasha Cisneros PTA Progressing Goal: Pt to complete slide board transfer to/from wheelchair with Dates: Start: 11/12/22 Expected End: 11/27/22 Description: ModA Outcomes Date/Time User Outcome 11/16/22 1431 Natahsa Cisneros PTA Progressing Encounter Problems (Resolved) There are no resolved problems. EDUCATION Education Documentation Spine Precautions, taught by Natasha Cisneros PTA at 11/16/2022 12:12 PM. Learner: Patient Readiness: Acceptance Method: Explanation, Demonstration Response: Needs Reinforcement, Verbalizes Understanding Body Mechanics, taught by Natasha Cisneros PTA at 11/16/2022 12:12 PM. Learner: Patient Readiness: Acceptance Method: Explanation, Demonstration Response: Needs Reinforcement, Verbalizes Understanding Mobility Training, taught by Natasha Cisneros PTA at 11/16/2022 12:12 PM. Learner: Patient Readiness: Acceptance Method: Explanation, Demonstration Response: Needs Reinforcement, Verbalizes Understanding Education Comments No comments found. * Kaitlyn Hurst PT - 11/16/2022 11:37 AM EST [facility]: Received IPR referral, chart reviewed with [facility] medical care administrator, who feels the patient is not a candidate for IPR at [facility], due to barriers to discharge to home setting, and severity of patient's functional impairments. Would be more appropriate for [facility] at this time. Discussed with [facility] management. Thank you, Kaitlyn Hurst, MS, PT [phone] * Brie Ulloa RN - 11/16/2022 10:56 AM EST MDR's complete. Patient remains in house for continued medical management. 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 Tao. PT recommending IPR. PT andsurgeon recommending [facility]. Admissions liaison from [facility] stating anticipating denial d/t barriers to return to home setting. CM sent additional IPR referrals. Awaiting acceptance. * Tico Fox MD - 11/16/2022 7:19 AM EST Images from the original note were not included. 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 -MRI of the C/T/L-spine on 11/10/2022 showed suspected pathology compression fracture at T2 and T7 levels and substantial epidural tumor at T7 level with compression of the cord, along with multiple bone lesions described as metastatic in nature throughout the spine and pelvis. -CT of the C/A/P on 11/10/2022 showed multiple lytic lesions throughout the skeleton, mildly enlarged hilar and mediastinal lymph nodes but no solid tumors or masses. -11/10/2022 SPEP showed a possible milligram gammopathy. However, Centerview/lambda ratio was 114.51 Subjective: The patient is laying in bed. Comfortable. He continues to have back pain. That he is regaining some sensation and motor function but still having difficulties with moving both legs. Unable to walk. Exam: GEN: well appearing, NAd HEENT: PERRLA, oropharynx clear LYMPH: No cervical, supraclavicular, axillary LN, Inguinal or popliteal lymphadenopathy CV: RRR, S1S2, no murmurs PULM: CTAB, no wheezes, rales, or rhonchi ABD: soft, nontender, nondistended, no ascites, no HSM EXT: no edema MSK: full ROM NEURO: Bilateral lower extremities show significant decrease in the strength, 0 out of 5 on the dorsiflexion knee flexion knee extension and hip flexion. Some strength in the hip abduction, 3 out of 5. Sensation still present in both lower extremities. SKIN: no rash, petechiae, ecchymoses Data Review: LABS: Recent Results (from the past 24 hour(s)) Complete blood count Collection Time: 11/15/22 8:19 AM Result Value Ref Range WBC 7.7 4.6 - 10.2 K/mcL RBC 3.41 (L) 4.30 - 5.70 M/mcL Hemoglobin 10.7 (L) 13.5 - 17.5 g/dL Hematocrit 31.2 (L) 39.0 - 49.0 % MCV 91.5 80.0 - 97.0 FL MCH 31.4 27.0 - 34.0 pcg MCHC 34.3 30.8 - 35.3 g/dL RDW 13.1 11.0 - 14.8 % Platelets 204 142 - 424 K/mcL MPV 10.4 6.2 - 12.1 FL Basic metabolic panel Collection Time: 11/15/22 8:19 AM Result Value Ref Range Sodium 133 (L) 136 - 145 mmol/L Potassium 4.3 3.6 - 5.1 mmol/L Chloride 100 98 - 107 mmol/L CO2 29 22 - 32 mmol/L Anion Gap 4 (L) 6 - 18 Glucose 148 (H) 70 - 99 mg/dL BUN 26 (H) 8 - 20 mg/dL Creatinine 0.64 0.60 - 1.30 mg/dL eGFR 105 >=60 mL/min/1.73m2 BUN/Creatinine Ratio 40.6 (H) 12.0 - 20.0 Calcium 8.6 (L) 8.9 - 10.3 mg/dL Complete blood count Collection Time: 11/16/22 4:43 AM Result Value Ref Range WBC 10.1 4.6 - 10.2 K/mcL RBC 3.38 (L) 4.30 - 5.70 M/mcL Hemoglobin 10.6 (L) 13.5 - 17.5 g/dL Hematocrit 31.0 (L) 39.0 - 49.0 % MCV 91.7 80.0 - 97.0 FL MCH 31.4 27.0 - 34.0 pcg MCHC 34.2 30.8 - 35.3 g/dL RDW 13.2 11.0 - 14.8 % Platelets 227 142 - 424 K/mcL MPV 10.3 6.2 - 12.1 FL Basic metabolic panel Collection Time: 11/16/22 4:43 AM Result Value Ref Range Sodium 135 (L) 136 - 145 mmol/L Potassium 4.6 3.6 - 5.1 mmol/L Chloride 101 98 - 107 mmol/L CO2 29 22 - 32 mmol/L Anion Gap 5 (L) 6 - 18 Glucose 157 (H) 70 - 99 mg/dL BUN 28 (H) 8 - 20 mg/dL Creatinine 0.71 0.60 - 1.30 mg/dL eGFR 102 >=60 mL/min/1.73m2 BUN/Creatinine Ratio 39.4 (H) 12.0 - 20.0 Calcium 8.2 (L) 8.9 - 10.3 mg/dL IMAGING: @IMAGES@ PATHOLOGY: Order Name Source Comment Collection Info Order Time TISSUE EXAM Spine, Thoracic Collected By: Ish Tao Jr., MD 11/11/2022 5:49 PM Assessment and Plan: 1. T7 epidural mass with T7 and T2 compression fracture, likely pathological. 2. Significant abnormal kappa/lambda ratio, diagnostic of multiple myeloma Recommendations: -Centerview/underage above 100 is diagnostic of multiple myeloma. 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 However, we are going to wait for final pathological evaluation in the likely event of 2 different processes going on in this gentleman. -For confirmation, we will discuss with radiation timing and sequence of treatment -The patient will need systemic therapy for multiple myeloma. Likely bortezomib, lenalidomide and dexamethasone as a bridge to high-dose chemotherapy with stem cell rescue. -We will arrange this to start very shortly after discharge. We will follow with you. Please call with questions! Tico Fox MD * Julieta Lin NP - 11/16/2022 7:13 AM EST Neurosurgery Progress Note Patient: Armand Barron Room: [facility]/[id number] Age: 67 y.o. Attending: Dale Chaves DO Date of Service: 11/16/22 Admit: 11/10/2022 PCP: Salena Flores NP Assessment/Plan Kaleb Barron is a 67 year old male who presented to [facility] on 11/10/2022 with progressive loss of motor and sensory function in his legs over the preceding 7- 10 days. 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 A CTA C/A/P was done which did not show primary tumor. Rad/oncology was consulted. Dr. Tao took the patient to the OR on 11/11/2022. POD 5 C7-T4 posterior fusion by pedicle screw fixation T2, T7 removal of epidural tumor by laminectomy, facetectomy, foraminotomy - Neuro checks q4h - Notify NS FREDI with any change in neuro exam - Dressing: change dressing as ordered, notify NS FREDI with any signs of infection - Pain per Primary: PRN Oxycodone, Tylenol - Steroids: on Decadron 4mg q6h - Scheduled Protonix - Will address when to stop decadron - Activity: as tolerated with assistance, log roll, no bending - PT/OT following - no brace per Dr. Tao - VTE: BLE SCD's and HARVEY's only - No anticoagulants, antiplatelets, or NSAIDS unless cleared by Neurosurgery - Bowel regimen: Scheduled Miralax, senna - Dr. Addison with Hem/Onc following - working up for Myeloma - Dr. Guerra with Rad/Onc following - pathology pending - per their documentation patient will require likely post-op radiotherapy to the thoracic spine and potentially to other symptomatic sites. Would need adequate healing before proceeding with radiation treatment. Barriers to discharge: - [facility] referral pending - OK to D/C from NS perspective Disposition: - Rad/Onc appointment for 11/30/2022 - Dr. Tao follow up appointment placed and faxed - DC instructions in - Pathology pending Julieta Lin, [employer] Send message via KDW with further questions. Greater than 25 minutes were spent including face to face interview/education, and chart review including multiple provider notes, diagnostic testing results, and lab review. Greater than 50% of timespent in face to face counseling with patient. Subjective Patient states that he is feeling ok today. He states that he does not have any pain at this time. No new complaints of numbness, tingling, nausea, or vomiting. Objective Vitals: 11/16/22 0349 BP: (!) 145/88 Pulse: 60 Resp: 14 Temp: 36.7 C (98.1 F) SpO2: 96% Mental Status: Alert & oriented x 4 Language: Speech is fluent, non-dysarthric, able to follow commands Fund of knowledge: aware of current events, vocabulary is normal Sensation: Sensory exam completed: grossly intact to light touch, able to differentiate which leg I am touching without being able to see which leg I am touching No saddle anesthesia Motor: Muscle strength was assessed in all extremities BUE grasp/biceps/triceps/deltoid = 5/5 BLE DF/KF/KE/HF/HE = 0/5, PF = 1/5, Hip add/abd = 3/5 GI: Abdomen soft, nontender Pulmonary: Respirations are regular and unlabored Incision: Covered with mepilex, serosang drainage, deborah intact Medications Allergies: No Known Allergies Current Medications: Current Facility-Administered Medications: acetaminophen (TYLENOL) tablet 650 mg, 650 mg, oral, q6h PRN, Fahad Mccoy MD, 650 mg at 11/14/22 1435 amLODIPine (NORVASC) tablet 10 mg, 10 mg, oral, Daily, Fahad Mccoy MD, 10 mg at 11/14/22 0947 atorvastatin (LIPITOR) tablet 10 mg, 10 mg, oral, Daily, Fahad Mccoy MD, 10 mg at 11/15/22 0931 dexamethasone (DECADRON) injection 4 mg, 4 mg, intravenous, q6h DAVID, Renuka Addison MD, 4 mg at 11/16/22 0639 levothyroxine (SYNTHROID, LEVOTHROID) tablet 88 mcg, 88 mcg, oral, Daily, Fahad Mccoy MD, 88 mcg at 11/15/22 0931 metoprolol tartrate (LOPRESSOR) tablet 50 mg, 50 mg, oral, BID, Fahad Mccoy MD, 50 mg at 11/15/222021 ondansetron ODT (ZOFRAN-ODT) disintegrating tablet 4 mg, 4 mg, oral, q8h PRN OR ondansetron (PF) (ZOFRAN) injection 4 mg, 4 mg, intravenous, q8h PRN, Fahad Mccoy MD oxyCODONE (ROXICODONE) immediate release tablet 5 mg, 5 mg, oral, q4h PRN, JEFFERY Holden, 5 mg at 11/13/22 1314 pantoprazole (PROTONIX) EC tablet 40 mg, 40 mg, oral, q AM AC, Fahad Mccoy MD, 40 mg at 11/16/22 0639 polyethylene glycol (MIRALAX) packet 17 g, 17 g, oral, Daily, Louie Monteil DO, 17 g at 11/15/22 0255 promethazine (PHENERGAN) tablet 25 mg, 25 mg, oral, q6h PRN OR promethazine (PHENERGAN) suppository 25 mg, 25 mg, rectal, q12h PRN, JEFFERY Holden ropivacaine (NAROPIN) 0.5 % 246.25 mg, EPINEPHrine (ADRENALIN) 1 mg/mL 0.5 mg, ketorolac (TORADOL) 30 mg, cloNIDine (DURACLON) 80 mcg in sodium chloride 0.9 % 100 mL injection, , irrigation, Once, Ish Tao Jr., MD senna (SENOKOT) tablet 17.2 mg, 2 tablet, oral, Nightly PRN, JEFFERY Bernardo senna (SENOKOT) tablet 8.6 mg, 1 tablet, oral, BID, Louie Montiel DO, 8.6 mg at 11/15/222021 [COMPLETED] Insert peripheral IV, , , Once AND Maintain IV access, , , Until discontinued AND [COMPLETED] Saline lock IV, , , Once AND sodium chloride 0.9 % flush 10 mL, 10 mL, intravenous, BID, 10 mL at 11/15/222020 AND sodium chloride 0.9 % flush 10 mL, 10 mL, intravenous, PRN, JEFFERY Bernardo [COMPLETED] Insert peripheral IV, , , Once AND Maintain IV access, , , Until discontinued AND [COMPLETED] Saline lock IV, , , Once AND sodium chloride 0.9 % flush 10 mL, 10 mL, intravenous, BID, 10 mL at 11/15/222022 AND sodium chloride 0.9 % flush 10 mL, 10 mL, intravenous, PRN, Fahad Mccoy MD sodium chloride 0.9 % infusion, 125 mL/hr, intravenous, Continuous, Fahad Mccoy MD, Last Rate: 125 mL/hr at 11/13/22 0010, 125 mL/hr at 11/13/22 001 vancomycin (VANCOCIN) 1 g in sodium chloride 0.9 % 1,000 mL OR irrigation, , irrigation, Once, Ish Tao Jr., MD Radiology/Diagnostics No new imaging to review Labs Lab Results Component Value Date CREATININE 0.71 11/16/2022 BUN 28 (H) 11/16/2022 NA 135 (L) 11/16/2022 K 4.6 11/16/2022 CL 101 11/16/2022 CO2 29 11/16/2022 WBC 10.1 11/16/2022 RBC 3.38 (L) 11/16/2022 HGB 10.6 (L) 11/16/2022 HCT 31.0 (L) 11/16/2022 PLT 227 11/16/2022 No results found for: CSFCX, URINECX, CULTURE, BLOODCX * Paige Knight LPN - 11/15/2022 11:44 PM EST Goals: Skin integrity promotion Identify possible barriers to meeting goals/advancing plan of care: Stability of the patient: Moderately Stable - Low risk of patient condition declining or worsening End of Shift Summary: pt offered pillow support and to be turn q2 * Gabbi Beckford RN - 11/15/2022 4:56 PM EST Spoke with RN and reviewed chart. Patient s/p C7-T4 posterior fusion, T2, T7 removal of epidural tumor by lami, facectomy, foraminotomy. Onc continues to follow and awaiting path. [facility] referral still pending. Will follow up on Wednesday. * Tomás Cortez MD - 11/15/2022 2:08 PM EST Images from the original note were not included. Tomás Cortez MD [facility] Hospitalists Daily Progress Note Patient Name: Armand Barron PCP: Salena Flores NP Perpetual Assessment: Armand Barron is a 67 y.o. male who presented from home on 11/10/2022 with past medical history of essential hypertension presented with complaints of bilateral lower extremity complete paralysis. Found to have cord compression felt to be related to malignancy Oncology and neurosurgery consulted Assessment and Plan Acute bilateral lower extremity paralysis Compression fractures, T2 and T7 Metastatic osseous disease Cord compression Nausea -Presented with bilateral lower extremity acute weakness /paralysis and was unable to move his legs -Imaging as noted below, shows T2 and T7 compression fractures, cord compression due to epidural tumor. -MRI of the C-spine, T-spine and L-spine already done. Apart from the findings noted above, has diffuse DDD. -CT chest /abdomen also done- results reviewed, mediastinal/ hilar lymphadenpathy and osseus lesions showing compression and central canal involvement, no clear cut primary tumor -Neurosurgery consulted for cord compression and has discussed with oncology, neurosurgery took patient to OR for decompression/ biopsy of tumor on 11/11/22, pt underwent Thoracic decompression and removal of epidural tumor at T2 and T7 by laminectomy, facetectomy, and foraminotomy. Posterior thoracic fusion C7-T4 by pedicle screw fixation -Continue postop management per NSx, DARBY drain has now been removed, continue pain meds as needed (oxycodone, tylenol) , continue PT/OT, no bending -Oncology consulted; workup in progress; SPEP, UPEP, ELINA without clear-cut monoclonal gammopathy. -Overall waiting pathology results from epidural tumor biopsy. -Rad/Onc consulted; will likely require postoperative radiotherapy to the thoracic spine and potentially to other symptomatic sites in 2 to 3 weeks after surgical healing -Continue dexamethasone. -PT/OT consulted and recommending IPR. -Vanegas Catheter remains in place Acute kidney injury; resolving -Baseline creatinine normal, creatinine on presentation 1.5. -Patient did receive contrast for MRI and CTs -started on IV fluids and creatinine came down to 1.17 now resolved -Continue to avoid nephrotoxins. Essential hypertension - continue home metoprolol and Norvasc - blood pressures reviewed and in acceptable ranges - will continue to monitor bp and make adjustments as needed Hypothyroidism - continue synthroid per home regimen - stable with no acute issues Hyperlipidemia - continue statin per home regimen - stable with no acute issues GERD -continue PPI Constipation -Likely due to cord compression. -Plan as above. Code Status: Full Code - Default DVT Prophylaxis: scd/teds NO anticoagulants or antiplatelets or NSAIDs per neurosurgery Expected Date of Discharge: Anticipate patient possibly can be discharged on Wednesday. Currently awaiting acceptance/pre-CERT to IPR Medical/Social Complexity and Disposition: Patient requires continued hospitalization recovery from neurosurgery performed on 11/11 as above, workup in progress to determine underlying malignancy, await results of serum electrophoresis and results of epidural tumor biopsy., neurosurgery and hematology oncology following, treatment plan reviewed with patient,. Radiation oncology consulted by neurosurgery and planning for radiation treatmentlater after the patient is healed from the current surgery PT is recommending [facility] at time of discharge and referral was sent, awaiting acceptance History HPI and ROS: Patient seen and examined this morning. No acute issues overnight. States he feels that he is slowly getting better daily. Difficult for patient to tell if he is actually moving his toeswhen asked to. He is starting to be able to wiggle his toes a bit with the left being better than the right. Denies any symptoms of chest pain or shortness of breath. Physical Examination Temp: 36.3 C (97.3 F) (11/15 1148) Heart Rate: 68 (11/15 1148) Resp: 16 (11/15 1148) BP: 142/87 (11/15 114) GENERAL: Awake, not in distress CV: Regular rate and rhythm, no murmurs. RESP: Clear to auscultation bilaterally GI: Soft, non-tender. NEURO: Alert, Ox3. Lower extremity paralysis Reviewed 11/15/22 2:08 PM EST: [x] Laboratory [x] Radiology [] Cardiology [x] Medications [x] Transcriptions [] Microbiology [x] Outside Records [] Family * Etelvina Bunn NP - 11/15/2022 9:42 AM EST Neurosurgery Progress Note Patient: Armand Barron Room: [address] [place] [address] Age: 67 y.o. Attending: Tomás Cortez MD Date of Service: 11/15/22 Admit: 11/10/2022 PCP: Salena Flores NP Kaleb Barron is a 67 year old male who presented to [facility] on 11/10/2022 with progressive loss of motor and sensory function in his legs over the preceding 7- 10 days. 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 OR with Dr Tao on 11/11. Assessment/Plan POD 4 C7-T4 posterior fusion by pedicle screw fixation T2, T7 removal of epidural tumor by laminectomy, facetectomy, foraminotomy -Neurologically patient with continued movement, today with movement DF/PF -VSS, WBC 7.7, Hgb 10.7, PLAT 204 -Pathology pending, RAD/ONC following, appointment set -Continue dressing changes as ordered and notify FREDI if signs of infection -Diet: Tolerating regular -Work up for Myeloma continues Activity: as tolerated with assistance, log roll, no bending - PT/OT recommending IPR at discharge. no brace per Dr. Tao -VTE: BLE SCD's and HARVEY's only - No anticoagulants, antiplatelets, or NSAIDS unless cleared by Neurosurgery -Bowel regimen: Scheduled senna, PRN senna available -Steroids -Pain: PRN Oxycodone, Tylenol - Vanegas remains in place, appropriate to remove at this point Disposition - Rad/Onc appointment set for 11/30/22 - PT recommending IPR - Pathology pending Etelvina Benítez NP Send message via KDW with further questions. Time spent: 45 minutes Subjective With surgical incision site pain 2/10 per patient, no new complaints of pain, weakness, numbness, tingling, nausea, or vomiting Objective Vitals: 11/15/22 0715 BP: 122/77 Pulse: 54 Resp: 14 Temp: 36.2 C (97.2 F) SpO2: 96% Physical Exam Alert & oriented x 4 Speech is fluent, non-dysarthric, able to follow commands Fund of knowledge; aware of current events, vocabulary is normal visual marie full to confrontation and pupils equal round and reactive to light extraocular movements intact, no nystagmus facial sensation intact bilaterally facial muscles move symmetrically hearing grossly intact to voice Sensory exam completed: grossly intact to light touch, no extinction to double simultaneous stimulation, no neglect BUE grasp/biceps/triceps/deltoid = 5/5 BLE DF/PF 2/5 KF/KE/HF/HE/ 0/5; Hip adduction/Hip abduction 3/5 GI: Abdomen soft, nontender Pulmonary: Respirations are regular and unlabored Incision: Wound with serosanguinous drainage, deborah are flat and well approximated Medications Allergies: No Known Allergies Current Medications: Current Facility-Administered Medications: acetaminophen (TYLENOL) tablet 650 mg, 650 mg, oral, q6h PRN, Fahad Mccoy MD, 650 mg at 11/14/22 1435 amLODIPine (NORVASC) tablet 10 mg, 10 mg, oral, Daily, Fahad Mccoy MD, 10 mg at 11/14/22 0947 atorvastatin (LIPITOR) tablet 10 mg, 10 mg, oral, Daily, Fahad Mccoy MD, 10 mg at 11/15/22 09 dexamethasone (DECADRON) injection 4 mg, 4 mg, intravenous, q6h DAVID, Renuka Addison MD, 4 mg at 11/15/22 05 levothyroxine (SYNTHROID, LEVOTHROID) tablet 88 mcg, 88 mcg, oral, Daily, Fahad Mccoy MD, 88 mcg at 11/15/22930 metoprolol tartrate (LOPRESSOR) tablet 50 mg, 50 mg, oral, BID, Fahad Mccoy MD, 50 mg at 11/14/222042 ondansetron ODT (ZOFRAN-ODT) disintegrating tablet 4 mg, 4 mg, oral, q8h PRN OR ondansetron (PF) (ZOFRAN) injection 4 mg, 4 mg, intravenous, q8h PRN, Fahad Mccoy MD oxyCODONE (ROXICODONE) immediate release tablet 5 mg, 5 mg, oral, q4h PRN, JEFFERY Holden, 5 mg at 11/13/22 1314 pantoprazole (PROTONIX) EC tablet 40 mg, 40 mg, oral, q AM AC, Fahad Mccoy MD, 40 mg at 11/15/22 0633 polyethylene glycol (MIRALAX) packet 17 g, 17 g, oral, Daily, Louie Montiel DO, 17 g at 11/15/22 0255 promethazine (PHENERGAN) tablet 25 mg, 25 mg, oral, q6h PRN OR promethazine (PHENERGAN) suppository 25 mg, 25 mg, rectal, q12h PRN, JEFFERY Holden ropivacaine (NAROPIN) 0.5 % 246.25 mg, EPINEPHrine (ADRENALIN) 1 mg/mL 0.5 mg, ketorolac (TORADOL) 30 mg, cloNIDine (DURACLON) 80 mcg in sodium chloride 0.9 % 100 mL injection, , irrigation, Once, Ish Tao Jr., MD senna (SENOKOT) tablet 17.2 mg, 2 tablet, oral, Nightly PRN, JEFFERY Bernardo senna (SENOKOT) tablet 8.6 mg, 1 tablet, oral, BID, Louie Montiel DO, 8.6 mg at 11/15/22 0255 [COMPLETED] Insert peripheral IV, , , Once AND Maintain IV access, , , Until discontinued AND [COMPLETED] Saline lock IV, , , Once AND sodium chloride 0.9 % flush 10 mL, 10 mL, intravenous, BID, 10 mL at 11/15/22 0931 AND sodium chloride 0.9 % flush 10 mL, 10 mL, intravenous, PRN, JEFFERY Bernardo [COMPLETED] Insert peripheral IV, , , Once AND Maintain IV access, , , Until discontinued AND [COMPLETED] Saline lock IV, , , Once AND sodium chloride 0.9 % flush 10 mL, 10 mL, intravenous, BID, 10 mL at 11/14/22 2046 AND sodium chloride 0.9 % flush 10 mL, 10 mL, intravenous, PRN, Fahad Mccoy MD sodium chloride 0.9 % infusion, 125 mL/hr, intravenous, Continuous, Fahad Mccoy MD, Last Rate: 125 mL/hr at 11/13/22 0010, 125 mL/hr at 11/13/22 0010 vancomycin (VANCOCIN) 1 g in sodium chloride 0.9 % 1,000 mL OR irrigation, , irrigation, Once, Ish Tao Jr., MD Radiology/Diagnostics Results for orders placed during the hospital encounter of 11/10/22 XR Thoracic Spine Complete 4+ Views Narrative EXAMINATION TYPE: XR THORACIC SPINE COMPLETE 4+ VIEWS DATE OF EXAM : 11/11/2022 4:04 PM HISTORY: Pathologic T2 and T7 compression fractures with severe spinal cord compression. Thoracic decompression and removal of epidural tumor at T2 and T7 with laminectomy, facetectomy and foraminotomy. COMPARISON: CT scan of the chest dated 11/10/2022. FINDINGS: Fluoroscopy including O ring spin images was provided to the ordering clinician to perform surgery. Fluoroscopic time: 2.93 seconds Fluoroscopic dose: 15.86 mGy Matrix images reveal a clamp along the posterior spinous process of T3. Matrix images reveal bone destruction of the posterior margin of the T2 and T3 vertebral bodies, left facet and posterior elements of C2. There is osteopenia of the upper ribs. Pathologic fracture ofT7 with extension of lucent lesion into the left pedicle is again identified. Impression 1. Patient is undergoing thoracic spine surgery. 2. Pathologic compression fractures as described above similar to prior. 3. Please see beating machine operator report. -------- FINAL REPORT -------- Dictated By: Brendan Painting Dictated Date: 11/11/2022 18:54 Assigned Physician: Brendan Painting Reviewed and Electronically Signed By: Brendan Painting Signed Date: 11/11/2022 19:04 Workstation ID: [id number] Transcribed By: Self Edit Transcribed Date: 11/11/2022 18:54 Results for orders placed during the hospital encounter of 11/10/22 XR Thoracic Spine Complete 4+ Views Narrative EXAMINATION TYPE: XR THORACIC SPINE COMPLETE 4+ VIEWS DATE OF EXAM : 11/11/2022 4:04 PM HISTORY: Pathologic T2 and T7 compression fractures with severe spinal cord compression. Thoracic decompression and removal of epidural tumor at T2 and T7 with laminectomy, facetectomy and foraminotomy. COMPARISON: CT scan of the chest dated 11/10/2022. FINDINGS: Fluoroscopy including O ring spin images was provided to the ordering clinician to perform surgery. Fluoroscopic time: 2.93 seconds Fluoroscopic dose: 15.86 mGy Matrix images reveal a clamp along the posterior spinous process of T3. Matrix images reveal bone destruction of the posterior margin of the T2 and T3 vertebral bodies, left facet and posterior elements of C2. There is osteopenia of the upper ribs. Pathologic fracture ofT7 with extension of lucent lesion into the left pedicle is again identified. Impression 1. Patient is undergoing thoracic spine surgery. 2. Pathologic compression fractures as described above similar to prior. 3. Please see beating machine operator report. -------- FINAL REPORT -------- Dictated By: Brendan Painting Dictated Date: 11/11/2022 18:54 Assigned Physician: Brendan Painting Reviewed and Electronically Signed By: Brendan Painting Signed Date: 11/11/2022 19:04 Workstation ID: [id number] Transcribed By: Self Edit Transcribed Date: 11/11/2022 18:54 Labs Lab Results Component Value Date CREATININE 0.64 11/15/2022 BUN 26 (H) 11/15/2022 NA 133 (L) 11/15/2022 K 4.3 11/15/2022 CL 100 11/15/2022 CO2 29 11/15/2022 WBC 7.7 11/15/2022 RBC 3.41 (L) 11/15/2022 HGB 10.7 (L) 11/15/2022 HCT 31.2 (L) 11/15/2022 PLT 204 11/15/2022 * Carol Sepulveda OT - 11/15/2022 8:26 AM EST Occupational Therapy Patient: Armand Barron Age: 67 y.o. Sex: male Weakness [facility] Occupational Therapy Treatment Multi-Disciplinary Rounding Report Ambulation: Functional Mobility Walking Assistance: Not attempted, medical/safety concerns PLOF: Level of Long: Independent with mobility and functional transfers Lives With: Alone Type of Home: Apartment Home Adaptive Equipment: None Home Layout: One level Home Access: Stairs to enter with rails Prior Function Comments: Pt functioned independently at baseline until Wednesday when his legs became weak resulting in a couple falls that preceeded this admission. DME Needs: Bedside commode, Mill Operator Helper, Sock aide, Tub transfer bench (Wheelchair with removable armrests and footrests, drop arm bedside commode, slide board. DME needs to be further assessed at next level of care) OT Discharge Recommendation: Inpatient rehab facility placement Reason for current recommendation: Patient was fully independent with all ADLs, iADLs, and functional mobility prior to admission. At present, pt requires significant assist for completion of logroll, supine to/from sitting, slide board transfer to wheelchair. Pt lacks sufficient strength in B LE to allow for attempts at standing. For a brief time, pt able to sit at EOB statically with supervision but does require heavy use of B UE for support, removal of one hand results in requirement for min-modA to maintain static position. Significant assist required for all ADLs at this time as well andwill require extensive education and training on adaptive techniques/equipment. OT recommending inte nsive therapy at discharge to work toward pt regaining a functional level of independence with mobility as well as bowel and bladder control. SUBJECTIVE Pt admitted with weakness and numbness in B LE resulting in falls, onset of both symptoms was rapid. Imaging findings are very concerning for spinal metastasis at T7 and T2 with a kyphotic deformity at T2 and severe spinal cord compression at both levels. 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 Pt was cleared for occupational therapy services by RN. Patient supine in bed at start of the session. Pt with subjective reports of 2/10 lower neck pain this date and was agreeable to participate intherapy session. Patient was seen as a co-treat with physical therapy services secondary to medical complexity of the patient and requirement for two skilled persons to mobilize the patient safely. OBJECTIVE Precautions: Precautions Medical Precautions: Fall Risk Safety Interventions: Call lock within reach, Gait belt Orthopedic Precautions: Cervical Precautions, Back Precautions Orthoses Applied: (No brace needed) Vitals/Pain: Pain Assessment Pain Assessment: 0-10 Pain Score: 2 Pain Type: Acute pain, Surgical pain Pain Location: Neck Pain Orientation: Lower, Posterior General Assessments: Bed Mobility Rolling Right Assistance: Maximum assistance Rolling Left Assistance: Maximum assistance Sitting to Lying Assistance: Maximum assistance (x 2 person assist) Lying to Sitting Assistance: Maximum assistance (x 2 person assist) Functional Transfers Sit to Stand Assistance: Not attempted, medical/safety concerns Chair/Bed to Chair/Bed Assistance: Maximal (x 2 person assist - lateral transfer using slideboard) Functional Mobility Walking Assistance: Not attempted, medical/safety concerns Activity Tolerance Endurance: Tolerates 30 min activity with multiple rests Static Sitting Balance Static Sitting-Level of Assistance: Contact guard Static Sitting-Balance Support: Unilateral upper extremity supported Dynamic Sitting Balance Dynamic Sitting-Level of Assistance: Moderate assistance, Maximum assistance Static Standing Balance Static Standing-Level of Assistance: Not attempted, medical/safety concerns Dynamic Standing Balance Dynamic Standing-Level of Assistance: Not attempted, medical/safety concerns Cognitive Status: Cognition Overall Cognitive Status: Within Functional Limits Arousal/Alertness: Appropriate responses to stimuli Orientation Level: Oriented X4 Following Commands: Follows all commands and directions without difficulty Safety Judgment: Good awareness of safety precautions Awareness of Errors: Good awareness of errors made Deficits: Fully aware of deficits Memory: Appears intact Perseveration: Not present Problem Solving: Able to problem solve independently Extremity Assessments: Hand Function Gross Grasp: Functional Coordination Coordination: Functional RUE Assessment RUE Assessment: Within Functional Limits RUE Assessment Comments: Shoulder flexion to 90 degrees; formal MMT deferred due to spine precautions LUE Assessment LUE Assessment: Within Functional Limits LUE Assessment Comments: Shoulder flexion to approx 80 degrees; formal MMT deferred due to spine precautions. Slightly weaker than RUE. ADLs/IADLs: ADLs/IADLs Self Care/Home Management (ADLs) Time Entry: 10 ADL/ IADL Performed: Grooming, Toileting Grooming Grooming Level of Assistance: Setup Grooming Comments: Attempted wheelchair level grooming tasks at sinkside however sink not appropriate height for patient thus completed with cues for thoroughness at bedside table. No limitations noted to BUEs. Toileting Toileting Level of Assistance: Dependent Where Assessed: Bed level Toileting Comments: OT provided instruction regarding clothing management of donning depends utilizing logroll to facilitate adherence to back/cervical precautions. Max assist provided as patient requires UE support of bedrail to maintain sidelying position to don clothing in proper manner currently. ASSESSMENT Pt demonstrated Good tolerance to this therapy session. Pt left seated in wheelchair with call light within reach and all needs met, family at bedside. RN notified of patient's progress and level of assist required for mobility. OT is recommending OT Discharge Recommendations: Inpatient rehab facility placement and Equipment Recommended: Bedside commode, Mill Operator Helper, Sock aide, Tub transfer bench (Wheelchair with removable armrests and footrests, drop arm bedside commode, slide board. DME needs to be further assessed at next level of care) at discharge. AM-PAC Inpatient Daily Activity Short Form Scoring Form: Unable: 1 A Lot: 2 A Little: 3 None: 4 How much help from another person does the patient currently need? Putting on and taking off regular lower body clothing? [x]? []? []? []? Bathing (including washing, rinsing, drying)? [x]? []? []? []? Toileting, which includes using toilet, bedpan, or urinal? [x]? []? []? []? Putting on and taking off regular upper body clothing? []? [x]? []? []? Personal grooming such as brushing teeth? []? []? [x]? []? Eating meals? []? []? []? [x]? Score: 09/19 OT Assessment OT Assessment/ Barriers to Discharge: Decreased ADL status, Decreased upper extremity strength, Decreased endurance, Decreased functional mobility, Decreased IADLs, Decreased trunk control for functional activities, Decreased sensation Prognosis: Good (for goals) Evaluation/Treatment Tolerance: Patient tolerated treatment well Medical Staff Made Aware: Yes Comments: Nursing updated PLAN Acute Care Plan: Treatment Interventions: ADL retraining, Functional transfer training, UE strengthening/ROM, Endurance training, Patient/family training, Equipment evaluation/education, Neuromuscular reeducation, Compensatory technique education OT Plan: Skilled OT OT Frequency : 5 days per week OT Duration of Sessions: PRN OT Treatments per day: 1 time per day OT Discharge Recommendations: Inpatient rehab facility placement Equipment Recommended: Bedside commode, Mill Operator Helper, Sock aide, Tub transfer bench (Wheelchair with removable armrests and footrests, drop arm bedside commode, slide board. DME needs to be further assessed at next level of care) Encounter Problems Encounter Problems (Active) Template: Occupational Therapy Problem: Balance Goal: Maintains static standing balance without upper extremity support Dates: Start: 11/12/22 Expected End: 11/26/22 Description: Goal Type: STG, Performance Level: Stand by Assist Outcomes Date/Time User Outcome 11/15/22 Diego Sepulveda OT Progressing Problem: Compromised Skin Integrity Goal: Patient demonstrates pressure reduction techniques Dates: Start: 11/12/22 Expected End: 11/26/22 Description: Goal Type: STG, Performance Level: Independent Outcomes Date/Time User Outcome 11/15/22 Diego Sepulveda, JEAN PIERRE Not Progressing Problem: Dressing Upper Extremities Goal: Patient will demonstrate use of appropriate intervention for safe dressing of upper extremities Dates: Start: 11/12/22 Expected End: 11/26/22 Description: Goal Type: STG, Performance Level: Stand by Assist Outcomes Date/Time User Outcome 11/15/22 Diego Sepulveda OT Progressing Problem: Dressings Lower Extremities Goal: Patient will utilize adaptive techniques/equipment to dress lower body Dates: Start: 11/12/22 Expected End: 11/26/22 Description: Goal Type: STG, Performance Level: Mod assist Outcomes Date/Time User Outcome 11/15/22 1046 Carol Sepulveda OT Not Progressing Problem: Safety Goal: Patient will adhere to cervical and back precautions during ADL's and transfers Dates: Start: 11/12/22 Expected End: 11/26/22 Description: Goal Type: STG, Performance Level: Independent Outcomes Date/Time User Outcome 11/15/22 1046 Carol Sepulveda OT Progressing Problem: Transfers Goal: Patient will perform toilet transfer Dates: Start: 11/12/22 Expected End: 11/26/22 Description: Goal Type: STG, Performance Level: Mod assist and Sliding board Outcomes Date/Time User Outcome 11/15/22 1046 Carol Sepulveda OT Progressing Encounter Problems (Resolved) There are no resolved problems. EDUCATION Education Documentation ADL Training, taught by Carol Sepulveda OT at 11/15/2022 10:47 AM. Learner: Patient Readiness: Acceptance Method: Explanation Response: Verbalizes Understanding Education Comments No comments found. * Gisel Shaffer, PT - 11/15/2022 8:26 AM EST Physical Therapy Patient: Armand Barron Age: 67 y.o. Sex: male Weakness [facility] Physical Therapy Treatment Multi-Disciplinary Rounding Report Ambulation: PLOF: Level of Long: Independent with mobility and functional transfers Lives With: Alone Type of Home: Apartment Home Adaptive Equipment: None Home Layout: One level Home Access: Stairs to enter with rails Prior Function Comments: Pt functioned independently at baseline until Wednesday when his legs became weak resulting in a couple falls that preceeded this admission. DME Needs: (to be determined at the next level of care) PT Discharge Recommendation: Inpatient rehab facility placement Reason for current recommendation based on assessment: Pt would benefit from intensive skilled therapy to address deficits and return to prior level of function. SUBJECTIVE Pt clear for PT per Yasmine DAVALOS. Pt seen with OT to maximize mobility efforts and for pt/staff safety. Pt rates pain 2/10 at rest, agreeable to therapy and trying slide board to w/c today. OBJECTIVE Precautions: Precautions Medical Precautions: Fall Risk Safety Interventions: Call lock within reach, ID band on, Bed alarm, Gait belt Orthopedic Precautions: Back Precautions, Cervical Precautions Orthoses Applied: (no brace orders) Vitals/Pain: Pain Assessment Pain Assessment: 0-10 Pain Score: 2 Pain Location: Neck Pain Interventions: Medication (See MAR), RN notified (Comment) (SUSANNAH Underwood and neurosurg APERTURE MASK ETCHER) Response to Interventions: pt states pain still 2/10 after activity Cognition: Cognition Orientation Level: Oriented to person, Oriented to situation Following Commands: Follows one step commands with repetition General Assessments: Static Sitting Balance Static Sitting-Level of Assistance: Contact guard Static Sitting-Comment/Number of Minutes: 10 (EOB prior to slide board to chair, [employer] BUSINESS INTELLIGENCE CONSULTANT performing dressing change to incision) Functional Assessments: Bed Mobility Rolling Right Assistance: Moderate assistance, Maximum assistance, Maximum verbal cues Rolling Left Assistance: Moderate assistance, Maximum assistance, Maximum verbal cues (pt still needs support to move BLE Safely with log rolling either direction) Lying to Sitting Assistance: Maximum assistance, Maximum verbal cues (x2 to maintain precautions and due to pt's weakness) Transfers Chair/Bed to Chair/Bed Transfer Assistance: Maximum assistance, Dependent, Maximum verbal cues (maxassist of 2 slide board bed to wheelchair, dependent x 2 daylin back to bed) Wheelchair Wheelchair Assistance: Moderate assistance Wheelchair Distance (ft): 50 Wheelchair Comment: (w/c drifting today, PT providing pt mod assist to reduce stress and strain to BUE/neck/upper back) Procedure/Treatment: Therapeutic Activity Therapeutic Activity Time Entry: 30 Therapeutic Activity 1: (bed mobility, log rolls) Therapeutic Activity 2: (slide board transfer bed to wheelchair) Therapeutic Activity 3: (daylin transfer back to bed) Therapeutic Activity 4: (sitting tolerance and endurance in wheelchair) Other Activities: ASSESSMENT Pt demonstrated good tolerance to this therapy session. Pt was having more difficulty steering w/c today and PT limited distance to 50 ft to avoid further stress and strain to pt's shoulders, neck and upper back. Pt did not want to stay up in w/c for breakfast today, stating he was not comfortable in chair and felt more strain on his neck with trying to keep his head upright. PT did discuss theseconcerns with neurosurgery APERTURE MASK ETCHER Etelvina and she states she will discuss with Dr Tao. Pt left back in bed, daylin w/c to bed with PT and MST, bed alarm on, pt with call light within reach and all needs met. SUSANNAH Underwood notified of patients progress and level of assist required for mobility. Patient is progressing slowly and plan of care is ongoing. PT Assessment/ Barriers to discharge: Decreased mobility, Orthopedic restrictions Prognosis: Fair Evaluation/Treatment Tolerance: Patient tolerated treatment well Medical Staff Made Aware: Yes (SUSANNAH Underwood) PLAN Acute Care Plan: Treatment/Interventions: Functional transfer training, LE strengthening/ROM, Bed mobility, Balance training, Continued evaluation PT Plan: Skilled PT PT Frequency: 7 days per week PT Treatments per day: 1-2 times per day PT Discharge Recommendations: Inpatient rehab facility placement Equipment Recommended: (to be determined at the next level of care) Time Spent: PT Time Calculation PT Start Time: 825 PT Stop Time: 919 PT Time Calculation (min): 54 min Time Entry: PT Therapeutic Procedures Time Entry Therapeutic Activity Time Entry: 30 Wheelchair Management Time Entry: 10 Goals: Encounter Problems Encounter Problems (Active) Template: Physical Therapy Problem: Balance Goal: Maintains static sitting balance without upper extremity support (Resolved) Dates: Start: 11/12/22 Expected End: 11/27/22 Met: 11/15/22 Description: X 2 minutes with CGA Outcomes Date/Time User Outcome 11/15/22 1044 Gisel Shaffer PT Completed Goal: Maintains dynamic sitting balance with upper extremity support Dates: Start: 11/12/22 Expected End: 11/27/22 Description: X 5 minutes with no greater than Varun required to recover from LOB Outcomes Date/Time User Outcome 11/15/22 1044 Gisel Shaffer PT Progressing Problem: Mobility Goal: Patient will propel the wheelchair Dates: Start: 11/12/22 Expected End: 11/27/22 Description: 100 feet without rest break with close supervision in wide open space of hallway Outcomes Date/Time User Outcome 11/15/22 Luiz Shaffer PT Progressing Problem: Safety Goal: Patient will adhere to spine precautions during the completion of mobility skills Dates: Start: 11/12/22 Expected End: 11/27/22 Description: Minimal verbal cues Outcomes Date/Time User Outcome 11/15/22 104Megan Shaffer PT Progressing Problem: Transfers Goal: Patient to transfer to and from sit to supine via logroll Dates: Start: 11/12/22 Expected End: 11/27/22 Description: ModA Outcomes Date/Time User Outcome 11/15/22 1044 Gisel Shaffer PT Progressing Goal: Patient will roll via logroll Dates: Start: 11/12/22 Expected End: 11/27/22 Description: ModA Outcomes Date/Time User Outcome 11/15/22 1044 Gisel Shaffer PT Progressing Goal: Pt to complete slide board transfer to/from wheelchair with Dates: Start: 11/12/22 Expected End: 11/27/22 Description: ModA Outcomes Date/Time User Outcome 11/15/22 1044 Gisel Shaffer PT Progressing Encounter Problems (Resolved) There are no resolved problems. EDUCATION Education Documentation Spine Precautions, taught by Gisel Shaffer PT at 11/15/2022 10:45 AM. Learner: Patient Readiness: Acceptance Method: Explanation Response: Needs Reinforcement Body Mechanics, taught by Gisel Shaffer PT at 11/15/2022 10:45 AM. Learner: Patient Readiness: Acceptance Method: Explanation Response: Needs Reinforcement Mobility Training, taught by Gisel Shaffer PT at 11/15/2022 10:45 AM. Learner: Patient Readiness: Acceptance Method: Explanation Response: Needs Reinforcement Education Comments No comments found. * Paige Knight LPN - 11/14/2022 11:04 PM EST Goals: Skin integrity promotion Identify possible barriers to meeting goals/advancing plan of care: prolonged immobility Stability of the patient: Moderately Stable - Low risk of patient condition declining or worsening End of Shift Summary: pt offered q2 turns throughout the shift * Gabbi Beckford RN - 11/14/2022 4:13 PM EST Spoke with RN and reviewed chart. Patient s/p C7-T4 posterior fusion, T2, T7 removal of epidural tumor by lami, facectomy, foraminotomy. Onc following, awaiting path. Marina montero referral still pending. * Andrey Mendez, PT - 11/14/2022 1:38 PM EST Patient: Armand Barron Age: 67 y.o. Sex: male Weakness [facility] Physical Therapy Treatment Multi-Disciplinary Rounding Report Ambulation: n/as PLOF: Level of Long: Independent with mobility and functional transfers Lives With: Alone Type of Home: Apartment Home Adaptive Equipment: None Home Layout: One level Home Access: Stairs to enter with rails Prior Function Comments: Pt functioned independently at baseline until Wednesday when his legs became weak resulting in a couple falls that preceeded this admission. DME Needs: (to be determined at the next level of care) PT Discharge Recommendation: Inpatient rehab facility placement Reason for current recommendation based on assessment: Patient lives alone, unable to ambulate, will [facility] from [facility] for aggressive therapy in preparation for return home. SUBJECTIVE Patient willing to participate, pain 2/10, bilat LE paresthesias. Patient agreeable to EOB and OOB activity OBJECTIVE Precautions: Precautions Medical Precautions: Fall Risk Safety Interventions: Call lock within reach, ID band on, Bed alarm, Gait belt Orthopedic Precautions: Back Precautions, Cervical Precautions Orthoses Applied: (no brace orders) Vitals/Pain: Cognition: General Assessments: Functional Assessments: Procedure/Treatment: seated core exercise 10 repetitions anterior posterior Supine exercise AAROM 10 repetitions all planes Transfers supine-sit EOB max assist x1, sit-supine max assist + dependent transfer to [facility] slide board transfer bed to wheelchair, unable to complete due to balance deficits Other Activities: ASSESSMENT Patient tolerating activity well with minimal c/o pain, mild increase to 3/10. Sitting balance requires UE support in tripod or use of bedrails. Unable to scoot EOB, max assist with use of the draw pad to achieve bilat foot contact, unable to actively move LE's against gravity in sitting. PT to continue to follow and progress functional mobility as tolerated. PLAN Acute Care Plan: Treatment/Interventions: Functional transfer training, LE strengthening/ROM, Bed mobility, Balance training, Continued evaluation PT Plan: Skilled PT PT Frequency: 7 days per week PT Treatments per day: 1-2 times per day PT Discharge Recommendations: Inpatient rehab facility placement Equipment Recommended: (to be determined at the next level of care) Time Spent: Time Entry: Goals: Encounter Problems Encounter Problems (Active) Template: Physical Therapy Problem: Balance Goal: Maintains static sitting balance without upper extremity support (Resolved) Dates: Start: 11/12/22 Expected End: 11/27/22 Met: 11/15/22 Description: X 2 minutes with CGA Outcomes Date/Time User Outcome 11/15/22 1044 Gisel Shaffer PT Completed Goal: Maintains dynamic sitting balance with upper extremity support Dates: Start: 11/12/22 Expected End: 11/27/22 Description: X 5 minutes with no greater than Varun required to recover from LOB Outcomes Date/Time User Outcome 11/15/22 1044 Gisel Shaffer PT Progressing Problem: Mobility Goal: Patient will propel the wheelchair Dates: Start: 11/12/22 Expected End: 11/27/22 Description: 100 feet without rest break with close supervision in wide open space of hallway Outcomes Date/Time User Outcome 11/15/22 1044 Gisel Shaffer PT Progressing Problem: Safety Goal: Patient will adhere to spine precautions during the completion of mobility skills Dates: Start: 11/12/22 Expected End: 11/27/22 Description: Minimal verbal cues Outcomes Date/Time User Outcome 11/15/22 1044 Gisel Shaffer PT Progressing Problem: Transfers Goal: Patient to transfer to and from sit to supine via logroll Dates: Start: 11/12/22 Expected End: 11/27/22 Description: ModA Outcomes Date/Time User Outcome 11/15/22 1044 Gisel Shaffer PT Progressing Goal: Patient will roll via logroll Dates: Start: 11/12/22 Expected End: 11/27/22 Description: ModA Outcomes Date/Time User Outcome 11/15/22 1044 Gisel Shaffer PT Progressing Goal: Pt to complete slide board transfer to/from wheelchair with Dates: Start: 11/12/22 Expected End: 11/27/22 Description: ModA Outcomes Date/Time User Outcome 11/15/22 1044 Gisel Shaffer PT Progressing Encounter Problems (Resolved) There are no resolved problems. EDUCATION Education Documentation No documentation found. Education Comments No comments found. * Tomás Cortez MD - 11/14/2022 12:07 PM EST Images from the original note were not included. Tomás Cortez MD [facility] Hospitalists Daily Progress Note [id number] PCP: Salena Flores NP Perpetual Assessment: Armand Barron is a 67 y.o. male who presented from home on 11/10/2022 with past medical history of essential hypertension presented with complaints of bilateral lower extremity complete paralysis. Found to have cord compression felt to be related to malignancy Oncology and neurosurgery consulted Assessment and Plan Acute bilateral lower extremity paralysis Compression fractures, T2 and T7 Metastatic osseous disease Cord compression Nausea -Presented with bilateral lower extremity acute weakness /paralysis and was unable to move his legs -Imaging as noted below, shows T2 and T7 compression fractures, cord compression due to epidural tumor. -MRI of the C-spine, T-spine and L-spine already done. Apart from the findings noted above, has diffuse DDD. -CT chest /abdomen also done- results reviewed, mediastinal/ hilar lymphadenpathy and osseus lesions showing compression and central canal involvement, no clear cut primary tumor -Neurosurgery consulted for cord compression and has discussed with oncology, neurosurgery took patient to OR for decompression/ biopsy of tumor on 11/11/22, pt underwent Thoracic decompression and removal of epidural tumor at T2 and T7 by laminectomy, facetectomy, and foraminotomy. Posterior thoracic fusion C7-T4 by pedicle screw fixation -Continue postop management per NSx, DARBY drain has now been removed, continue pain meds as needed (oxycodone, tylenol) , continue PT/OT, no bending -Oncology consulted; workup in progress; SPEP, UPEP, ELINA without clear-cut monoclonal gammopathy. -Overall waiting pathology results from epidural tumor biopsy. -Rad/Onc consulted; will likely require postoperative radiotherapy to the thoracic spine and potentially to other symptomatic sites in 2 to 3 weeks after surgical healing -Continue dexamethasone. -PT/OT consulted and recommending IPR. -Vanegas Catheter remains in place Acute kidney injury; resolving -Baseline creatinine normal, creatinine on presentation 1.5. -Patient did receive contrast for MRI and CTs -started on IV fluids and creatinine came down to 1.17 now resolved -Continue to avoid nephrotoxins. Essential hypertension - continue home metoprolol and Norvasc - blood pressures reviewed and in acceptable ranges - will continue to monitor bp and make adjustments as needed Hypothyroidism - continue synthroid per home regimen - stable with no acute issues Hyperlipidemia - continue statin per home regimen - stable with no acute issues GERD -continue PPI Constipation -Likely due to cord compression. -Plan as above. Code Status: Full Code - Default DVT Prophylaxis: scd/teds NO anticoagulants or antiplatelets or NSAIDs per neurosurgery Expected Date of Discharge: Anticipate patient possibly can be discharged on Wednesday. Currently awaiting acceptance/pre-CERT to IPR Medical/Social Complexity and Disposition: Patient requires continued hospitalization recovery from neurosurgery performed on 11/11 as above, workup in progress to determine underlying malignancy, await results of serum electrophoresis and results of epidural tumor biopsy., neurosurgery and hematology oncology following, treatment plan reviewed with patient,. Radiation oncology consulted by neurosurgery and planning for radiation treatmentlater after the patient is healed from the current surgery PT is recommending [facility] inpatient rehab at time of discharge and referral was sent, awaiting acceptance History HPI and ROS: Patient seen and examined this morning. No acute issues overnight. States he feels that he is slowly getting better daily. Starting to be able to move his lower extremities just a bit. Denies any symptoms of chest pain or shortness of breath. Physical Examination Temp: 36.8 C (98.2 F) (11/14 1130) Heart Rate: 62 (11/14 1130) Resp: 14 (11/14 1130) BP: 123/72 (11/14 1130) GENERAL: Awake, not in distress CV: Regular rate and rhythm, no murmurs. RESP: Clear to auscultation bilaterally GI: Soft, non-tender. NEURO: Alert, Ox3. Lower extremity paralysis Reviewed 11/14/22 12:07 PM EST: [x] Laboratory [x] Radiology [] Cardiology [x] Medications [x] Transcriptions [] Microbiology [x] Outside Records [] Family * Etelvina Bunn NP - 11/14/2022 8:05 AM EST Neurosurgery Progress Note Patient: Armand Barron Room: [facility]/[address] [place] [address] Age: 67 y.o. Attending: Tomás Cortez MD Date of Service: 11/14/22 Admit: 11/10/2022 PCP: Salena Flores NP Kaleb Barron is a 67 year old male who presented to [facility] on 11/10/2022 with progressive loss of motor and sensory function in his legs over the preceding 7- 10 days. 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 OR with Dr Tao on 11/11 Assessment/Plan POD 3 C7-T4 posterior fusion by pedicle screw fixation T2, T7 removal of epidural tumor by laminectomy, facetectomy, foraminotomy -Neurologically patient with continued slight movement of BLE abd/add, sensation intact -Pathology pending, RAD/ONC following, appointment set -Work up for Myeloma continues -Steroids Activity: as tolerated with assistance, log roll, no bending - PT/OT recommending IPR at discharge. no brace per Dr. Tao -VTE: BLE SCD's and HARVEY's only - No anticoagulants, antiplatelets, or NSAIDS unless cleared by Neurosurgery -Bowel regimen: Scheduled senna, PRN senna available -Pain: PRN Oxycodone, Tylenol - Vanegas remains in place, defer management to primary Disposition - Rad/Onc appointment set for 11/30/22 - PT recommending IPR - Pathology pending Etelvina Benítez NP Send message via KDW with further questions. Time spent: 45 minutes Subjective: No new complaints on exam, denies pain Objective Vitals: 11/14/22 0718 BP: 129/74 Pulse: 64 Resp: 16 Temp: 36.5 C (97.7 F) SpO2: 94% Physical Exam Alert & oriented x 4 Speech is fluent, non-dysarthric, able to follow commands Fund of knowledge; aware of current events, vocabulary is normal visual marie full to confrontation and pupils equal round and reactive to light extraocular movements intact, no nystagmus facial sensation intact bilaterally facial muscles move symmetrically hearing grossly intact to voice Sensory exam completed: grossly intact to light touch, no extinction to double simultaneous stimulation, no neglect BUE grasp/biceps/triceps/deltoid = 5/5 BLE DF/PF/KF/KE/HF/HE/ 0/5 Hip adduction/Hip abduction 1/5 GI: Abdomen soft, nontender Pulmonary: Respirations are regular and unlabored Incision: Mepliex is clean dry and intact, visualized and deborah are well approximated, flat Medications Allergies: No Known Allergies Current Medications: Current Facility-Administered Medications: acetaminophen (TYLENOL) tablet 650 mg, 650 mg, oral, q6h PRN, Fahad Mccoy MD amLODIPine (NORVASC) tablet 10 mg, 10 mg, oral, Daily, Fahad Mccoy MD, 10 mg at 11/13/22 1056 atorvastatin (LIPITOR) tablet 10 mg, 10 mg, oral, Daily, Fahad Mccoy MD, 10 mg at 11/13/22 1057 dexamethasone (DECADRON) injection 4 mg, 4 mg, intravenous, q6h DAVID, Renuka Addison MD, 4 mg at 11/14/22 06 levothyroxine (SYNTHROID, LEVOTHROID) tablet 88 mcg, 88 mcg, oral, Daily, Fahad Mccoy MD, 88 mcg at 11/13/22 115 metoprolol tartrate (LOPRESSOR) tablet 50 mg, 50 mg, oral, BID, Fahad Mccoy MD, 50 mg at 11/13/222042 ondansetron ODT (ZOFRAN-ODT) disintegrating tablet 4 mg, 4 mg, oral, q8h PRN OR ondansetron (PF) (ZOFRAN) injection 4 mg, 4 mg, intravenous, q8h PRN, Fahad Mccoy MD oxyCODONE (ROXICODONE) immediate release tablet 5 mg, 5 mg, oral, q4h PRN, JEFFERY Holden, 5 mg at 11/13/22 1314 pantoprazole (PROTONIX) EC tablet 40 mg, 40 mg, oral, q AM AC, Fahad Mccoy MD, 40 mg at 11/14/22 0616 promethazine (PHENERGAN) tablet 25 mg, 25 mg, oral, q6h PRN OR promethazine (PHENERGAN) suppository 25 mg, 25 mg, rectal, q12h PRN, JEFFERY Holden ropivacaine (NAROPIN) 0.5 % 246.25 mg, EPINEPHrine (ADRENALIN) 1 mg/mL 0.5 mg, ketorolac (TORADOL) 30 mg, cloNIDine (DURACLON) 80 mcg in sodium chloride 0.9 % 100 mL injection, , irrigation, Once, Ish Tao Jr., MD senna (SENOKOT) tablet 17.2 mg, 2 tablet, oral, Nightly PRN, JEFFERY Bernardo senna (SENOKOT) tablet 17.2 mg, 2 tablet, oral, Nightly, JEFFERY Holden, 17.2 mg at 11/13/222042 [COMPLETED] Insert peripheral IV, , , Once AND Maintain IV access, , , Until discontinued AND [COMPLETED] Saline lock IV, , , Once AND sodium chloride 0.9 % flush 10 mL, 10 mL, intravenous, BID, 10 mL at 11/13/222045 AND sodium chloride 0.9 % flush 10 mL, 10 mL, intravenous, PRN, JEFFERY Bernardo [COMPLETED] Insert peripheral IV, , , Once AND Maintain IV access, , , Until discontinued AND [COMPLETED] Saline lock IV, , , Once AND sodium chloride 0.9 % flush 10 mL, 10 mL, intravenous, BID, 10 mL at 11/13/222046 AND sodium chloride 0.9 % flush 10 mL, 10 mL, intravenous, PRN, Fahad Mccoy MD sodium chloride 0.9 % infusion, 125 mL/hr, intravenous, Continuous, Fahad Mccoy MD, Last Rate: 125 mL/hr at 11/13/22 0010, 125 mL/hr at 11/13/22 001 vancomycin (VANCOCIN) 1 g in sodium chloride 0.9 % 1,000 mL OR irrigation, , irrigation, Once, Ish Tao Jr., MD Radiology/Diagnostics Results for orders placed during the hospital encounter of 11/10/22 XR Thoracic Spine Complete 4+ Views Narrative EXAMINATION TYPE: XR THORACIC SPINE COMPLETE 4+ VIEWS DATE OF EXAM : 11/11/2022 4:04 PM HISTORY: Pathologic T2 and T7 compression fractures with severe spinal cord compression. Thoracic decompression and removal of epidural tumor at T2 and T7 with laminectomy, facetectomy and foraminotomy. COMPARISON: CT scan of the chest dated 11/10/2022. FINDINGS: Fluoroscopy including O ring spin images was provided to the ordering clinician to perform surgery. Fluoroscopic time: 2.93 seconds Fluoroscopic dose: 15.86 mGy Matrix images reveal a clamp along the posterior spinous process of T3. Matrix images reveal bone destruction of the posterior margin of the T2 and T3 vertebral bodies, left facet and posterior elements of C2. There is osteopenia of the upper ribs. Pathologic fracture ofT7 with extension of lucent lesion into the left pedicle is again identified. Impression 1. Patient is undergoing thoracic spine surgery. 2. Pathologic compression fractures as described above similar to prior. 3. Please see beating machine operator report. -------- FINAL REPORT -------- Dictated By: Brendan Painting Dictated Date: 11/11/2022 18:54 Assigned Physician: Brendan Painting Reviewed and Electronically Signed By: Brendan Painting Signed Date: 11/11/2022 19:04 Workstation ID: [id number] Transcribed By: Self Edit Transcribed Date: 11/11/2022 18:54 Results for orders placed during the hospital encounter of 11/10/22 XR Thoracic Spine Complete 4+ Views Narrative EXAMINATION TYPE: XR THORACIC SPINE COMPLETE 4+ VIEWS DATE OF EXAM : 11/11/2022 4:04 PM HISTORY: Pathologic T2 and T7 compression fractures with severe spinal cord compression. Thoracic decompression and removal of epidural tumor at T2 and T7 with laminectomy, facetectomy and foraminotomy. COMPARISON: CT scan of the chest dated 11/10/2022. FINDINGS: Fluoroscopy including O ring spin images was provided to the ordering clinician to perform surgery. Fluoroscopic time: 2.93 seconds Fluoroscopic dose: 15.86 mGy Matrix images reveal a clamp along the posterior spinous process of T3. Matrix images reveal bone destruction of the posterior margin of the T2 and T3 vertebral bodies, left facet and posterior elements of C2. There is osteopenia of the upper ribs. Pathologic fracture ofT7 with extension of lucent lesion into the left pedicle is again identified. Impression 1. Patient is undergoing thoracic spine surgery. 2. Pathologic compression fractures as described above similar to prior. 3. Please see beating machine operator report. -------- FINAL REPORT -------- Dictated By: Brendan Painting Dictated Date: 11/11/2022 18:54 Assigned Physician: Brendan Painting Reviewed and Electronically Signed By: Brendan Painting Signed Date: 11/11/2022 19:04 Workstation ID: [id number] Transcribed By: Self Edit Transcribed Date: 11/11/2022 18:54 Labs No results found for: CREATININE, BUN, NA, K, CL, CO2, WBC, RBC, HGB, HCT, PLT, PT, INR, PTT No results found for: CSFCX, URINECX, CULTURE, BLOODCX * Renuka Addison MD - 11/14/2022 7:32 AM EST Hematology / Oncology Progress Report Chief Complaint : Follow-up cord compression and elevated light chains. Progress Note : Hematologic/Oncologic Hx: Patient with history of worsening paresthesias and upper back pain who presented on November 10 with inability to move his legs. He was found to have cord compression at T2 and T7. He did undergo surgery on November 11. There was removal of epidural tumor with pathology pending. He does have abnormal light chains in his serum and urine. With IEP and SPEP showing possiblemonoclonal protein Interval Hx: Patient continues about the same. Weakness unchanged. Labs: Pathology: Pathology pending Imaging: Assesment : Cord compression with evidence of abnormal light chains worrisome for myeloma. Recommendations : Will await final pathology from epidural tumor. Time spent: Greater than 50% of the time was spent [id number] reviewing the diagnostic studies, diagnosis, natural history, and treatment options, and answering questions. Diagnostic Data : Today's vital signs, pertinent laboratory, imaging, and pathology reviewed. Please reference Electronic Medical Record for today's results. * Paige Knight LPN - 11/13/2022 11:01 PM EST Goals: Pain management Identify possible barriers to meeting goals/advancing plan of care: recent surgery Stability of the patient: Moderately Stable - Low risk of patient condition declining or worsening End of Shift Summary: pt offered pain medication throughout the shift * Sterling Snyder MD - 11/13/2022 3:54 PM EST Images from the original note were not included. Sterling Snyder MD [facility] Hospitalists Daily Progress Note Patient Name: Armand Barron PCP: Salena Flores NP Perpetual Assessment: Armand Barron is a 67 y.o. male who presented from home on 11/10/2022 with past medical history of essential hypertension presented with complaints of bilateral lower extremity complete paralysis. Found to have cord compression felt to be related to malignancy Oncology and neurosurgery consulted Assessment and Plan Acute bilateral lower extremity paralysis Compression fractures, T2 and T7 Metastatic osseous disease Cord compression Nausea -Presented with bilateral lower extremity acute weakness /paralysis- inability to move legs -Imaging as noted below, shows T2 and T7 compression fractures, cord compression due to epidural tumor. -MRI of the C-spine, T-spine and L-spine already done. Apart from the findings noted above, has diffuse DDD. - CT chest /abdomen also done- results reviewed, mediastinal/ hilar lymphadenpathy and osseus lesions showing compression and central canal involvement, no clear cut primary tumor, - continue supportive care with IV fluids, antiemetics and pain medications. Continue Vanegas catheter for now -Hold all AC/AP - seen by oncology and workup in progress, dexamethasone started -Neurosurgery consulted for cord compression and has discussed with oncology, neurosurgery took patient to OR for decompression/ biopsy of tumor on 11/11/22, pt underwent Thoracic decompression and removal of epidural tumor at T2 and T7 by laminectomy, facetectomy, and foraminotomy. Posterior thoracic fusion C7-T4 by pedicle screw fixation - post op management per surgery, DARBY drain has now been removed, continue pain meds as needed (oxycodone, tylenol) , continue PT/OT, no bending - hematology/ oncology workup in progress - evaluating for myeloma, await results of serum electrophoresis-resolved on urine immunofixation is showing free kappa monoclonal Bence-Avendaño protein present, quantitative kappa lambda free light chains is showing kappa free light chain 137.4, kappa/lambdaFLC 114.5, await pathology results of epidural tumor biopsy - radiation oncology consulted by neurosurgery-patient seen by Dr. Guerra who stated that the patient will likely require postoperative radiotherapy to the thoracic spine and potentially to other symptomatic sites but would need adequate healing before proceeding with radiation treatment, outpatient appointment arranged for 2 to 3 weeks from now, awaiting final pathology results Pre-Op Evaluation - The patient was seen before the neurosurgery and evaluated for a high risk surgery - The patient has no symptoms - The patient's functional capacity is >4 METS - The patient has the following pertinent Revised Cardiac Risk Index Indicators: high risk surgery - Based on the above, the patient was felt to be moderate risk for perioperative complications. - The patient may proceed to surgery, with comments/risks as noted above - Other preop recommendations: No further work-up is necessary given acuity of the situation. May go to surgery per neurosurgeon discretion. Patient at baseline prior to his bilateral lower extremityweakness / paralysis starting, he has no prior history of CAD, CHF, CVA or COPD Acute kidney injury -Baseline creatinine normal, creatinine on presentation 1.5. - pt did receive contrast for MRI and CTs - started on IV fluids and creatinine came down to 1.1 7 now resolved - Continue to avoid nephrotoxins. Essential hypertension - continue home metoprolol and Norvasc - blood pressures reviewed and in acceptable ranges - will continue to monitor bp and make adjustments as needed Hypothyroidism - continue synthroid per home regimen - stable with no acute issues Hyperlipidemia - continue statin per home regimen - stable with no acute issues GERD -continue PPI Constipation -Likely due to cord compression. -Plan as above. Code Status: Full Code - Default DVT Prophylaxis: scd/teds NO anticoagulants or antiplatelets or NSAIDs per neurosurgery Expected Date of Discharge: to be determined Medical/Social Complexity and Disposition: Patient requires continued hospitalization recovery from neurosurgery performed on 11/11 as above, workup in progress to determine underlying malignancy, await results of serum electrophoresis and results of epidural tumor biopsy., neurosurgery and hematology oncology following, treatment plan reviewed with patient,. Radiation oncology consulted by neurosurgery and planning for radiation treatmentlater after the patient is healed from the current surgery PT is recommending [facility] inpatient [facility] at time of discharge and referral was sent, awaiting acceptance History HPI and ROS: pt says he has more sensation in his legs and able to move it more f today the tingling is better, he is hopeful that he can regain more function,. Denies chest pain or sob or nausea or vomiting or abd pain Physical Examination Temp: 37 C (98.6 F) (11/13 1127) Heart Rate: 69 (11/13 1127) Resp: 15 (11/13 1127) BP: 116/67 (11/13 1127) GENERAL: Awake, not in distress CV: Regular rate and rhythm, no murmurs. RESP: Clear to auscultation bilaterally GI: Soft, non-tender. NEURO: Alert, Ox3. Lower extremity paralysis Reviewed 11/13/22 3:54 PM EST: [x] Laboratory [x] Radiology [] Cardiology [x] Medications [x] Transcriptions [] Microbiology [x] Outside Records [] Family * Laury Wu PT - 11/13/2022 3:30 PM EST Physical Therapy PT assisted with slide board transfer of pt with Natasha Cisneros PTA as maxAx2 persons required to complete transfer safely with use of slide board. PT did observe active adduction/quad activity on R LE without facilitation 2-/5 strength. With PT facilitation also able to palpate L LE adductor, B LE abductor and L LE quad activity 1/5. Pt reports improved sensation on R LE this date compared to L LE. PT did speak with TIP Moreno regarding discharge recommendations to IPR for further rehab as well as education on pt's active control of bowel and bladder function as well as ADLs. * Natasha Cisneros PTA - 11/13/2022 3:12 PM EST Physical Therapy Patient: Armand Barron Age: 67 y.o. Sex: male Weakness [facility] Physical Therapy Treatment Multi-Disciplinary Rounding Report Ambulation: Walking Assistance: Not attempted, medical/safety concerns PLOF: Level of Long: Independent with mobility and functional transfers Lives With: Alone Type of Home: Apartment Home Adaptive Equipment: None Home Layout: One level Home Access: Stairs to enter with rails Prior Function Comments: Pt functioned independently at baseline until Wednesday when his legs became weak resulting in a couple falls that preceeded this admission. DME Needs: PT Discharge Recommendation: Inpatient rehab facility placement Reason for current recommendation based on assessment: PT continues to strongly recommend IPR at discharge to work toward a modified independent level of function as well as to educate pt on how to complete ADLs and maintain bowel/bladder functions. SUBJECTIVE Pt cleared by RN Lisa to be seen. Pt supine in bed upon entry with brother present upon entry, agreeable to therapy at this time. Pt reports back pain 01/04 to start session. OBJECTIVE Precautions: Precautions Medical Precautions: Fall Risk Safety Interventions: Call lock within reach, ID band on, Gait belt Orthopedic Precautions: Back Precautions, Cervical Precautions Orthoses Applied: (no brace needed per Dr. Tao) Vitals/Pain: Oxygen Therapy Oxygen Therapy: None (Room air) Pain Assessment Pain Assessment: 0-10 Pain Score: 4 Pain Type: Acute pain, Surgical pain Pain Location: Back Pain Orientation: Lower Pain Descriptors: Aching Clinical Progression: Not changed Pain Interventions: Repositioned, Ambulation/increased activity, Rest Response to Interventions: pt reports no changes in pain level following mobility Cognition: Cognition Arousal/Alertness: Appropriate responses to stimuli Orientation Level: Oriented X4 Following Commands: Follows all commands and directions without difficulty General Assessments: Activity Tolerance Endurance: Tolerates 30 min exercise with multiple rests Static Sitting Balance Static Sitting-Level of Assistance: Contact guard, Close supervision Static Sitting-Balance Support: Right upper extremity supported, Left upper extremity supported, Feet supported Functional Assessments: Bed Mobility Lying to Sitting Assistance: Maximum assistance (x2) Bed Mobility Comments: head of bed elevated 30 for mobility, use of draw pad for mobility, sitting up in WC at end of session Transfers Sit to Stand Assistance: Not attempted, medical/safety concerns Chair/Bed to Chair/Bed Transfer Assistance: Maximum assistance (x2) Bed to/from Chair Transfer Technique: Lateral with transfer board, To left Transfer Comments: poor BLE strength to safely complete sit to stand transfers this date Ambulation Walking Assistance: Not attempted, medical/safety concerns Comments: Pt does not at present have the strength in his legs to accomodate walking Procedure/Treatment: Balance/Neuromuscular Re-Education Neuromuscular Re-Education Time Entry: 10 Balance/Neuromuscular Re-Education Activity 1: focus on sitting tolerance EOB with BUE support Therapeutic Activity Therapeutic Activity Time Entry: 15 Therapeutic Activity 1: focus on bed mobility and slide board transfer Other Activities: ASSESSMENT Pt demo'd good tolerance of session, sitting up in WC at end of session with call light within reach and all needs met. Daylin pad in place for safe mobility for staff back to bed, MST/RN aware. Pt isprogressing toward goals of ongoing plan of care. PT Assessment/ Barriers to discharge: Decreased strength, Impaired balance, Decreased endurance, Impaired gait, Decreased mobility, Orthopedic restrictions, Pain Prognosis: Good Evaluation/Treatment Tolerance: Patient tolerated treatment well Medical Staff Made Aware: Yes Comments: RN aware of pt status/position at end of session PLAN Acute Care Plan: Treatment/Interventions: Functional transfer training, LE strengthening/ROM, Endurance training, Patient/family training, Bed mobility, Compensatory technique education, Balance training PT Plan: Skilled PT PT Frequency: 7 days per week PT Treatments per day: 1-2 times per day PT Discharge Recommendations: Inpatient rehab facility placement Time Spent: PT Time Calculation PT Start Time: 1512 PT Stop Time: 1550 PT Time Calculation (min): 38 min Time Entry: PT Therapeutic Procedures Time Entry Neuromuscular Re-Education Time Entry: 10 Therapeutic Activity Time Entry: 15 Wheelchair Management Time Entry: 13 Goals: Encounter Problems Encounter Problems (Active) Template: Physical Therapy Problem: Balance Goal: Maintains static sitting balance without upper extremity support Dates: Start: 11/12/22 Expected End: 11/27/22 Description: X 2 minutes with CGA Outcomes Date/Time User Outcome 11/13/22 172Narcisa Cisneros PTA Progressing Goal: Maintains dynamic sitting balance with upper extremity support Dates: Start: 11/12/22 Expected End: 11/27/22 Description: X 5 minutes with no greater than Varun required to recover from LOB Outcomes Date/Time User Outcome 11/13/22 Pedro Cisneros PTA Progressing Problem: Mobility Goal: Patient will propel the wheelchair Dates: Start: 11/12/22 Expected End: 11/27/22 Description: 100 feet without rest break with close supervision in wide open space of hallway Outcomes Date/Time User Outcome 11/13/22 Pedro Cisneros PTA Progressing Problem: Safety Goal: Patient will adhere to spine precautions during the completion of mobility skills Dates: Start: 11/12/22 Expected End: 11/27/22 Description: Minimal verbal cues Outcomes Date/Time User Outcome 11/13/22 Pedro Cisneros PTA Progressing Problem: Transfers Goal: Patient to transfer to and from sit to supine via logroll Dates: Start: 11/12/22 Expected End: 11/27/22 Description: ModA Outcomes Date/Time User Outcome 11/13/22 1725 Natasha Cisneros PTA Progressing Goal: Patient will roll via logroll Dates: Start: 11/12/22 Expected End: 11/27/22 Description: ModA Outcomes Date/Time User Outcome 11/13/22 1725 Natasha Cisneros PTA Progressing Goal: Pt to complete slide board transfer to/from wheelchair with Dates: Start: 11/12/22 Expected End: 11/27/22 Description: ModA Outcomes Date/Time User Outcome 11/13/22 1725 Natasha Cisneros PTA Progressing Encounter Problems (Resolved) There are no resolved problems. EDUCATION Education Documentation Spine Precautions, taught by Natasha Cisneros PTA at 11/13/2022 3:12 PM. Learner: Patient Readiness: Acceptance Method: Explanation, Demonstration Response: Verbalizes Understanding, Needs Reinforcement Body Mechanics, taught by Natasha Cisneros PTA at 11/13/2022 3:12 PM. Learner: Patient Readiness: Acceptance Method: Explanation, Demonstration Response: Verbalizes Understanding, Needs Reinforcement Mobility Training, taught by Natasha Cisneros PTA at 11/13/2022 3:12 PM. Learner: Patient Readiness: Acceptance Method: Explanation, Demonstration Response: Verbalizes Understanding, Needs Reinforcement Education Comments No comments found. * Brie Ulloa RN - 11/13/2022 1:30 PM EST MDR's complete. Patient remains in house for continued medical management. POD 2 thoracic decompression and removal of epidural tumor at T2 and T7 laminectomy by Dr. Tao. Oncology consulted. Vanegas in place. PT recommending [facility]. Referral sent. Awaiting acceptance. * Tiffanie Rogers NP - 11/13/2022 8:50 AM EST Neurosurgery Progress Note Patient: Armand Barron Room: [address] [place] [address] Age: 67 y.o. Attending: Sterling Snyder MD Date of Service: 11/13/22 Admit: 11/10/2022 PCP: Salena Flores, APERTURE MASK ETCHER Addendum at 16:30 - PT worked with patient, patient shamar sitting on wheel chair, - neurologically this afternoon RLE abd/add 1/5, rest RLE/LLE 0/5 - Referral sent to [facility] per case management notes - OK for radiation treatment from neurosurgical perspective after 3 weeks Assessment/Plan Kaleb Barron is a 67 year old male who presented to [facility] on 11/10/2022 with progressive loss of motor and sensory function in his legs over the preceding 7- 10 days. 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 A CTA C/A/P was done which did not show primary tumor. PVR over 800ml and vanegas placed. Admission assessment also revealed no rectal tone. Oncology was consulted. Dr. Tao took the patient to the OR on 11/11/2022. 1. POD #2 C7-T4 posterior fusion by pedicle screw fixation T2, T7 removal of epidural tumor by laminectomy, facetectomy, foraminotomy - Neurologically slight movement of the entire leg noted, however HF/KF/KF/DF/PF 0/5, BUE 5/5 - Pathology pending. Rad/Onc following. Per their documentation patient will require likely post-operative radiotherapy to the thoracic spine and potentially to other symptomatic sites. Would need adequate healing before proceeding with radiation treatment. Rad/Onc appointment set for 11/30/22 -Dr. Addison with Hem/Onc following - working up for Myeloma -Steroids: on Decadron 4mg q6h - Scheduled Protonix -Activity: as tolerated with assistance, log roll, no bending - PT/OT recommending IPR at discharge. no brace per Dr. Tao -VTE: BLE SCD's and HARVEY's only - No anticoagulants, antiplatelets, or NSAIDS unless cleared by Neurosurgery -Bowel regimen: Scheduled senna, PRN senna available -Pain: PRN Oxycodone, Tylenol - Vanegas remains in place, defer management to primary 2. Disposition - Rad/Onc appointment set for 11/30/22 - PT recommending IPR - Pathology pending Tiffanie Rogers NP Send message via KDW with further questions. Greater than 35 minutes were spent including face to face interview/education, and chart review including multiple provider notes, diagnostic testing results, and lab review. Greater than 50% of timespent in face to face counseling with patient. Subjective Patient denies pain today. Objective Vitals: 11/13/22 0803 BP: 120/72 Pulse: 76 Resp: 14 Temp: 36.9 C (98.4 F) SpO2: 94% Mental Status: Alert & oriented x 4 Language: Speech is fluent, non-dysarthric, able to follow commands Fund of knowledge: aware of current events, vocabulary is normal Cranial Nerve Exam: 2nd cranial nerve: visual marie full to confrontation and pupils equal round and reactive to light 3rd, 4th and 6th cranial nerves: extraocular movements intact, no nystagmus 7th cranial nerve: facial muscles move symmetrically 8th cranial nerve: hearing grossly intact to voice Sensation: Sensory exam completed: grossly intact to light touch, able to differentiate which leg I am touching without being able to see which leg I am touching No saddle anesthesia Motor: Muscle strength was assessed in all extremities BUE grasp/biceps/triceps/deltoid = 5/5 BLE DF/PF/KF/KE/HF/HE = 0/5 Reflexes: No Tyson's No clonus GI: Abdomen soft, nontender Pulmonary: Respirations are regular and unlabored Cardiac: No edema : Voiding via vanegas cather Incision: incision well approximated with deborah, a slight Serosanguineous drainage noted on dressing. Dressing changed with Mepilex Medications Allergies: No Known Allergies Current Medications: Current Facility-Administered Medications: acetaminophen (TYLENOL) tablet 650 mg, 650 mg, oral, q6h PRN, Fahad Mccoy MD amLODIPine (NORVASC) tablet 10 mg, 10 mg, oral, Daily, Fahad Mccoy MD, 10 mg at 11/12/22 0847 atorvastatin (LIPITOR) tablet 10 mg, 10 mg, oral, Daily, Fahad Mccoy MD, 10 mg at 11/12/22 0848 dexamethasone (DECADRON) injection 4 mg, 4 mg, intravenous, q6h DAVID, Renuka Addison MD, 4 mg at 11/13/22 0643 levothyroxine (SYNTHROID, LEVOTHROID) tablet 88 mcg, 88 mcg, oral, Daily, Fahad Mccoy MD, 88 mcg at 11/12/22 0848 metoprolol tartrate (LOPRESSOR) tablet 50 mg, 50 mg, oral, BID, Fahad Mccoy MD, 50 mg at 11/12/222110 ondansetron ODT (ZOFRAN-ODT) disintegrating tablet 4 mg, 4 mg, oral, q8h PRN OR ondansetron (PF) (ZOFRAN) injection 4 mg, 4 mg, intravenous, q8h PRN, Fahad Mccoy MD oxyCODONE (ROXICODONE) immediate release tablet 5 mg, 5 mg, oral, q4h PRN, JEFFERY Holden, 5 mg at 11/12/222110 pantoprazole (PROTONIX) EC tablet 40 mg, 40 mg, oral, q AM AC, Fahad Mccoy MD, 40 mg at 11/13/22 0642 promethazine (PHENERGAN) tablet 25 mg, 25 mg, oral, q6h PRN OR promethazine (PHENERGAN) suppository 25 mg, 25 mg, rectal, q12h PRN, JEFFERY Holden ropivacaine (NAROPIN) 0.5 % 246.25 mg, EPINEPHrine (ADRENALIN) 1 mg/mL 0.5 mg, ketorolac (TORADOL) 30 mg, cloNIDine (DURACLON) 80 mcg in sodium chloride 0.9 % 100 mL injection, , irrigation, Once, Ish Tao Jr., MD senna (SENOKOT) tablet 17.2 mg, 2 tablet, oral, Nightly PRN, JEFFERY Bernardo senna (SENOKOT) tablet 17.2 mg, 2 tablet, oral, Nightly, JEFFERY Holden, 17.2 mg at 11/12/222110 [COMPLETED] Insert peripheral IV, , , Once AND Maintain IV access, , , Until discontinued AND [COMPLETED] Saline lock IV, , , Once AND sodium chloride 0.9 % flush 10 mL, 10 mL, intravenous, BID, 10 mL at 11/12/22 0920 AND sodium chloride 0.9 % flush 10 mL, 10 mL, intravenous, PRN, JEFFERY Bernardo [COMPLETED] Insert peripheral IV, , , Once AND Maintain IV access, , , Until discontinued AND [COMPLETED] Saline lock IV, , , Once AND sodium chloride 0.9 % flush 10 mL, 10 mL, intravenous, BID, 10 mL at 11/12/22 2110 AND sodium chloride 0.9 % flush 10 mL, 10 mL, intravenous, PRN, Fahad Mccoy MD sodium chloride 0.9 % infusion, 125 mL/hr, intravenous, Continuous, Fahad Mccoy MD, Last Rate: 125 mL/hr at 11/13/22 0010, 125 mL/hr at 11/13/22 0010 vancomycin (VANCOCIN) 1 g in sodium chloride 0.9 % 1,000 mL OR irrigation, , irrigation, Once, Ish Tao Jr., MD Radiology/Diagnostics Results for orders placed during the hospital encounter of 11/10/22 XR Thoracic Spine Complete 4+ Views Narrative EXAMINATION TYPE: XR THORACIC SPINE COMPLETE 4+ VIEWS DATE OF EXAM : 11/11/2022 4:04 PM HISTORY: Pathologic T2 and T7 compression fractures with severe spinal cord compression. Thoracic decompression and removal of epidural tumor at T2 and T7 with laminectomy, facetectomy and foraminotomy. COMPARISON: CT scan of the chest dated 11/10/2022. FINDINGS: Fluoroscopy including O ring spin images was provided to the ordering clinician to perform surgery. Fluoroscopic time: 2.93 seconds Fluoroscopic dose: 15.86 mGy Matrix images reveal a clamp along the posterior spinous process of T3. Matrix images reveal bone destruction of the posterior margin of the T2 and T3 vertebral bodies, left facet and posterior elements of C2. There is osteopenia of the upper ribs. Pathologic fracture ofT7 with extension of lucent lesion into the left pedicle is again identified. Impression 1. Patient is undergoing thoracic spine surgery. 2. Pathologic compression fractures as described above similar to prior. 3. Please see beating machine operator report. -------- FINAL REPORT -------- Dictated By: Brendan Painting Dictated Date: 11/11/2022 18:54 Assigned Physician: Brendan Painting Reviewed and Electronically Signed By: Brendan Painting Signed Date: 11/11/2022 19:04 Workstation ID: [id number] Transcribed By: Self Edit Transcribed Date: 11/11/2022 18:54 Results for orders placed during the hospital encounter of 11/10/22 XR Thoracic Spine Complete 4+ Views Narrative EXAMINATION TYPE: XR THORACIC SPINE COMPLETE 4+ VIEWS DATE OF EXAM : 11/11/2022 4:04 PM HISTORY: Pathologic T2 and T7 compression fractures with severe spinal cord compression. Thoracic decompression and removal of epidural tumor at T2 and T7 with laminectomy, facetectomy and foraminotomy. COMPARISON: CT scan of the chest dated 11/10/2022. FINDINGS: Fluoroscopy including O ring spin images was provided to the ordering clinician to perform surgery. Fluoroscopic time: 2.93 seconds Fluoroscopic dose: 15.86 mGy Matrix images reveal a clamp along the posterior spinous process of T3. Matrix images reveal bone destruction of the posterior margin of the T2 and T3 vertebral bodies, left facet and posterior elements of C2. There is osteopenia of the upper ribs. Pathologic fracture ofT7 with extension of lucent lesion into the left pedicle is again identified. Impression 1. Patient is undergoing thoracic spine surgery. 2. Pathologic compression fractures as described above similar to prior. 3. Please see beating machine operator report. -------- FINAL REPORT -------- Dictated By: Brendan Painting Dictated Date: 11/11/2022 18:54 Assigned Physician: Brendan Painting Reviewed and Electronically Signed By: Brendan Painting Signed Date: 11/11/2022 19:04 Workstation ID: [id number] Transcribed By: Self Edit Transcribed Date: 11/11/2022 18:54 Labs Lab Results Component Value Date CREATININE 1.18 11/11/2022 BUN 29 (H) 11/11/2022 NA 137 11/11/2022 K 4.0 11/11/2022 CL 104 11/11/2022 CO2 24 11/11/2022 WBC 6.9 11/11/2022 RBC 3.72 (L) 11/11/2022 HGB 11.5 (L) 11/11/2022 HCT 34.5 (L) 11/11/2022 PLT 197 11/11/2022 PT 14.8 (H) 11/10/2022 INR 1.1 11/10/2022 No results found for: CSFCX, URINECX, CULTURE, BLOODCX * Brie Ulloa RN - 11/12/2022 2:07 PM EST CM reviewed neurosurgery Julieta Lin NP note stating recommending [facility] for [facility]. PT also recommending [facility]. Referral sent. IF accepted patient WILL need pre cert. * Brie Ulloa RN - 11/12/2022 12:30 PM EST MDR's complete. Patient remains in house for continued medical management. Admitted for worsening paresthesias and upper back pain with inability to move legs. Found to have cord compression. POD 1 thoracic decompression and removal of epidural tumor at T2 and T7 by laminectomy by Dr. Tao. NO PT/OT eval at this time. Oncology consulted d/t epidural tumor removal. Pathology pending. Discharge plan pending PT/OT evaluation. * Laury Wu PT - 11/12/2022 12:14 PM EST Physical Therapy Patient: Armand Barron Age: 67 y.o. Sex: male Weakness [facility] Physical Therapy Treatment Multi-Disciplinary Rounding Report Ambulation: PLOF: Level of Long: Independent with mobility and functional transfers Lives With: Alone Type of Home: Apartment Home Adaptive Equipment: None Home Layout: One level Home Access: Stairs to enter with rails Prior Function Comments: Pt functioned independently at baseline until Wednesday when his legs became weak resulting in a couple falls that preceeded this admission. DME Needs: PT Discharge Recommendation: Inpatient rehab facility placement Reason for current recommendation based on assessment: Pt requires maxAx2 for slide board transfer to his right side back to bed with moderate degree of verbal cues to follow spine precautions with all transfers as well as encouragement to maintain erect posture. PT continues to strongly recommend IPR at discharge to work toward a modified independent level of function as well as to educate pt onhow to complete ADLs and maintain bowel/bladder functions. SUBJECTIVE Pt was cleared for physical therapy services by JOHN Moreno. Patient sitting in wheelchair at start of the session. Pt with subjective reports of 5/10 lower neck pain this date and was agreeable to participate in therapy session. OBJECTIVE Precautions: Precautions Medical Precautions: Fall Risk (Pt with i.v. access, pulse oximeter, DARBY X 1, vanegas catheter, telemetry) Safety Interventions: Call lock within reach, ID band on, Gait belt Orthopedic Precautions: Back Precautions, Cervical Precautions Orthoses Applied: (Per Dr Tao pt does not require a brace) 11/12/22 1214 PT Last Visit PT Received On 11/12/22 General Family/Caregiver Present Yes PT Time Calculation PT Start Time 1214 PT Stop Time 1230 PT Time Calculation (min) 16 min Pain Assessment Pain Assessment 0-10 Pain Score 5 - Moderate pain Pain Type Acute pain;Surgical pain Pain Location Neck Pain Orientation Lower Pain Radiating Towards lower neck to between shoulder blades Pain Descriptors Sore Patient's Stated Pain Goal No pain Pain Interventions RN notified (Comment);Repositioned;Ambulation/increased activity;Rest Response to Interventions Pt reported no increase in pain with movement this date. Cognition Arousal/Alertness Appropriate responses to stimuli Orientation Level Oriented X4 Following Commands Follows all commands and directions without difficulty Activity Tolerance Endurance Tolerates 30 min exercise with multiple rests Static Sitting Balance Static Sitting-Level of Assistance Contact guard Static Sitting-Balance Support Right upper extremity supported;Left upper extremity supported;Feet supported Static Sitting-Comment/Number of Minutes B UE In tripod positioning, legs in 90/90/90 hip/knee/ankle flexed positions providing support. Bed Mobility Rolling Right Assistance Moderate assistance;Moderate verbal cues (modAx2) Sitting to Lying Assistance Maximum assistance;Moderate verbal cues (maxAx2) Bed Mobility Comments Pt able to assist in rolling to the right, able to help slow speed of transfer from left sidelying to supine position Transfers Chair/Bed to Chair/Bed Transfer Assistance Maximum assistance;Moderate verbal cues;Maximum tactile cues (maxAx2) Bed to/from Chair Transfer Technique Lateral with transfer board;To right Therapeutic Activity Therapeutic Activity Time Entry 16 ASSESSMENT Pt demonstrated Good tolerance to this therapy session. Pt left supine in bed with call light within reach and all needs met. JOHN Moreno notified of patients progress and level of assist required for mobility. Patient is progressing and plan of care is ongoing. PT Assessment PT Assessment/ Barriers to discharge Decreased strength;Impaired balance;Impaired gait;Decreased mobility;Impaired tone;Impaired sensation;Orthopedic restrictions;Pain Prognosis Good Evaluation/Treatment Tolerance Patient tolerated treatment well Medical Staff Made Aware Yes PLAN Acute Care Plan: Treatment/Interventions: Functional transfer training, LE strengthening/ROM, Patient/family training, Equipment eval/education, Bed mobility, Gait training, Balance training PT Plan: Skilled PT PT Frequency: 7 days per week PT Treatments per day: 1-2 times per day Plan Treatment/Interventions Functional transfer training;LE strengthening/ROM;Patient/family training;Equipment eval/education;Bed mobility;Gait training;Balance training PT Plan Skilled PT PT Frequency 7 days per week PT Treatments per day 1-2 times per day PT Discharge Recommendations Inpatient rehab facility placement PT - Evaluation Status Complete PT - OK to Discharge (Appropriate for IPR discharge when pre-cert obtained) PT Discharge Recommendations: Inpatient rehab facility placement Time Spent: [id number] Time Entry: 16 minutes of therapeutic activity Goals: Encounter Problems Encounter Problems (Active) Template: Physical Therapy Problem: Balance Goal: Maintains static sitting balance without upper extremity support Dates: Start: 11/12/22 Expected End: 11/27/22 Description: X 2 minutes with CGA Outcomes Date/Time User Outcome 11/13/22 1604 Laury Wu, PT Progressing Goal: Maintains dynamic sitting balance with upper extremity support Dates: Start: 11/12/22 Expected End: 11/27/22 Description: X 5 minutes with no greater than Varun required to recover from LOB Outcomes Date/Time User Outcome 11/13/22 1604 Laury Wu, PT Progressing Problem: Mobility Goal: Patient will propel the wheelchair Dates: Start: 11/12/22 Expected End: 11/27/22 Description: 100 feet without rest break with close supervision in wide open space of hallway Outcomes Date/Time User Outcome 11/12/22 1343 Laury Wu, PT Progressing Problem: Safety Goal: Patient will adhere to spine precautions during the completion of mobility skills Dates: Start: 11/12/22 Expected End: 11/27/22 Description: Minimal verbal cues Outcomes Date/Time User Outcome 11/13/22 1604 Laury Wu, PT Progressing Problem: Transfers Goal: Patient to transfer to and from sit to supine via logroll Dates: Start: 11/12/22 Expected End: 11/27/22 Description: ModA Outcomes Date/Time User Outcome 11/13/22 1604 Laury Wu, PT Progressing Goal: Patient will roll via logroll Dates: Start: 11/12/22 Expected End: 11/27/22 Description: ModA Outcomes Date/Time User Outcome 11/13/22 1604 Laury Wu, PT Progressing Goal: Pt to complete slide board transfer to/from wheelchair with Dates: Start: 11/12/22 Expected End: 11/27/22 Description: ModA Outcomes Date/Time User Outcome 11/13/22 1604 Laury Wu, PT Progressing Encounter Problems (Resolved) There are no resolved problems. EDUCATION Education Documentation Spine Precautions, taught by Laury Wu PT at 11/12/2022 1214 PM. Learner: Family, Patient Readiness: Acceptance Method: Explanation, Demonstration, Teach-back Response: Verbalizes Understanding, Needs Reinforcement Body Mechanics, taught by Laury Wu PT at 11/12/2022 1214 PM. Learner: Family, Patient Readiness: Acceptance Method: Explanation, Demonstration, Teach-back Response: Verbalizes Understanding, Needs Reinforcement Mobility Training, taught by Laury Wu PT at 11/12/2022 1214 PM. Learner: Family, Patient Readiness: Acceptance Method: Explanation, Demonstration, Teach-back Response: Verbalizes Understanding, Needs Reinforcement Education Comments No comments found. * Sterling Snyder MD - 11/12/2022 11:57 AM EST Images from the original note were not included. Sterling Snyder MD [facility] Hospitalists Daily Progress Note Patient Name: Armand Barron PCP: Salena Flores NP Perpetual Assessment: Armand Barron is a 67 y.o. male who presented from home on 11/10/2022 with past medical history of essential hypertension presented with complaints of bilateral lower extremity complete paralysis. Found to have cord compression felt to be related to malignancy Oncology and neurosurgery consulted Assessment and Plan Acute bilateral lower extremity paralysis Compression fractures, T2 and T7 Metastatic osseous disease Cord compression Nausea -Presented with bilateral lower extremity acute weakness /paralysis- inability to move legs -Imaging as noted below, shows T2 and T7 compression fractures, cord compression due to epidural tumor. -MRI of the C-spine, T-spine and L-spine already done. Apart from the findings noted above, has diffuse DDD. - CT chest /abdomen also done- results reviewed, mediastinal/ hilar lymphadenpathy and osseus lesions showing compression and central canal involvement, no clear cut primary tumor, - continue supportive care with IV fluids, antiemetics and pain medications. Continue Vanegas catheter for now -Hold all AC/AP - seen by oncology and workup in progress, dexamethasone started -Neurosurgery consulted for cord compression and has discussed with oncology, neurosurgery took patient to OR for decompression/ biopsy of tumor on 11/11/22, pt underwent Thoracic decompression and removal of epidural tumor at T2 and T7 by laminectomy, facetectomy, and foraminotomy. Posterior thoracic fusion C7-T4 by pedicle screw fixation - post op management per surgery, DARBY drain has now been removed, continue pain meds as needed (oxycodone, tylenol) , continue PT/OT, no bending - hematology/ oncology workup in progress - evaluating for myeloma, await results of serum electrophoresis , await pathology results of epidural tumor biopsy - radiation oncology consulted by neurosurgery- await evaluation and recommendations Pre-Op Evaluation - The patient is being evaluated for a high risk surgery - The patient has no symptoms - The patient's functional capacity is >4 METS - The patient has the following pertinent Revised Cardiac Risk Index Indicators: high risk surgery - Based on the above, the patient was felt to be moderate risk for perioperative complications. - The patient may proceed to surgery, with comments/risks as noted above - Other preop recommendations: No further work-up is necessary given acuity of the situation. May go to surgery per neurosurgeon discretion. Patient at baseline prior to his bilateral lower extremityweakness / paralysis starting, he has no prior history of CAD, CHF, CVA or COPD Acute kidney injury -Baseline creatinine normal, creatinine on presentation 1.5. - pt did receive contrast for MRI and CTs - started on IV fluids and creatinine came down to 1.1 - recheck creatinine level in AM - Continue to avoid nephrotoxins. Essential hypertension - continue home metoprolol and Norvasc - blood pressures reviewed and in acceptable ranges - will continue to monitor bp and make adjustments as needed Hypothyroidism - continue synthroid per home regimen - stable with no acute issues Hyperlipidemia - continue statin per home regimen - stable with no acute issues GERD -continue PPI Constipation -Likely due to cord compression. -Plan as above. Code Status: Full Code - Default DVT Prophylaxis: scd/teds NO anticoagulants or antiplatelets or NSAIDs per neurosurgery Expected Date of Discharge: to be determined Medical/Social Complexity and Disposition: Patient requires continued hospitalization due to spinal cord compression requiring urgent cord decompression surgery, surgery performed on 11/11 and now recovering, workup in progress to determine underlying malignancy, await results of serum electrophoresis and results of epidural tumor biopsy., neurosurgery and hematology oncology following, treatment plan reviewed with patient,. Radiation oncology consulted by neurosurgery History HPI and ROS: pt says he has more sensation in his legs and able to move it more following surgery yesterday, the tingling is better, he is hopeful that he can regain more function,. Denies chest painor sob or nausea or vomiting or abd pain Physical Examination Temp: 36.8 C (98.2 F) (11/12 722) Heart Rate: 83 (11/12 722) Resp: 14 (11/12 722) BP: 137/82 (11/12 722) GENERAL: Awake, not in distress CV: Regular rate and rhythm, no murmurs. RESP: Clear to auscultation bilaterally GI: Soft, non-tender. NEURO: Alert, Ox3. Lower extremity paralysis Reviewed 11/12/22 11:57 AM EST: [x] Laboratory [x] Radiology [] Cardiology [x] Medications [x] Transcriptions [] Microbiology [x] Outside Records [] Family * Josh Crenshaw RN - 11/12/2022 10:44 AM EST Goals: pain control Identify possible barriers to meeting goals/advancing plan of care: recent surgery Stability of the patient: Moderately Stable - Low risk of patient condition declining or worsening End of Shift Summary: Pt pain is under control. No c/o. Was up to wheelchair with PT. DARBY drain removed on back. Good urine output * Carol Sepulveda OT - 11/12/2022 10:17 AM EST Occupational Therapy Patient: Armand Barron Age: 67 y.o. Sex: male Weakness [facility] Occupational Therapy Evaluation Multi-Disciplinary Rounding Report Ambulation: Functional Mobility Walking Assistance: Not attempted, medical/safety concerns PLOF: Level of Long: Independent with mobility and functional transfers Lives With: Alone Type of Home: Apartment Home Adaptive Equipment: None Home Layout: One level Home Access: Stairs to enter with rails Prior Function Comments: Pt functioned independently at baseline until Wednesday when his legs became weak resulting in a couple falls that preceeded this admission. DME Needs: Bedside commode, Mill Operator Helper, Sock aide, Tub transfer bench (Wheelchair with removable armrests and footrests, drop arm bedside commode, slide board. DME needs to be further assessed at next level of care) OT Discharge Recommendation: Inpatient rehab facility placement Reason for current recommendation: Patient was fully independent with all ADLs, iADLs, and functional mobility prior to admission. At present, pt requires significant assist for completion of logroll, supine to/from sitting, slide board transfer to wheelchair. Pt lacks sufficient strength in B LE to allow for attempts at standing. For a brief time, pt able to sit at EOB statically with supervision but does require heavy use of B UE for support, removal of one hand results in requirement for min-modA to maintain static position. Significant assist required for all ADLs at this time as well andwill require extensive education and training on adaptive techniques/equipment. OT recommending inte nsive therapy at discharge to work toward pt regaining a functional level of independence with mobility as well as bowel and bladder control. SUBJECTIVE OT evaluation completed. Pt admitted with weakness and numbness in B LE resulting in falls, onset of both symptoms was rapid. Imaging findings are very concerning for spinal metastasis at T7 and T2 with a kyphotic deformity at T2 and severe spinal cord compression at both levels. 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 Pt was cleared for occupational therapy services by RN. Patient supine in bed at start of the session. Pt with subjective reports of 2/10 lower neck pain this date and was agreeable to participate intherapy session. Patient was seen as a co-treat with physical therapy services secondary to medical complexity of the patient and requirement for two skilled persons to mobilize the patient safely. Past Medical History: Diagnosis Date Cord compression (CMS/HCC) 11/10/2022 T2-T7 cord compression Hypercholesteremia Hypertension Hypothyroidism Vitamin deficiency Past Surgical History: Procedure Laterality Date CHOLECYSTECTOMY 09/27/1989 SPINAL CORD DECOMPRESSION 11/11/2022 Fusion Decompression T8-T9, T2 tumor removal, T2-T7 spinal cord compression OBJECTIVE Precautions: Precautions Medical Precautions: Fall Risk Safety Interventions: Call lock within reach, ID band on, Gait belt Orthopedic Precautions: Back Precautions, Cervical Precautions Orthoses Applied: (No brace needed per Dr. Tao) Vitals/Pain: Pain Assessment Pain Assessment: 0-10 Pain Score: 5 - Moderate pain Pain Type: Acute pain, Surgical pain Pain Location: Back Pain Orientation: Lower, Posterior Home Living: Home Living Type of Home: Apartment Lives With: Alone Home Adaptive Equipment: None Home Layout: One level Home Access: Stairs to enter with rails Entrance Stairs-Rails: Rail on the right going up Entrance Stairs-Number of Steps: 10 Bathroom Equipment: None Prior Function: Prior Function Level of Long: Independent with mobility and functional transfers Indoor Mobility Assistance: Independent Stairs Assistance : Independent Do you drive?: Yes Mode of Transportation: Car 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) Which is your dominant hand?: Right Prior Function Comments: Pt functioned independently at baseline until Wednesday when his legs became weak resulting in a couple falls that preceeded this admission. Prior ADL/IADL History: ADL/IADL History ADL Assistance (Self Care): Independent Homemaking Assistance (Functional Cognition): Independent General Assessments: ADL Eating Assistance: Independent Grooming Assistance: Setup or clean-up assistance Oral Hygiene Assistance: Setup or clean-up assistance Bathing Assistance: Maximal UE Dressing Assistance: Moderate LE Dressing Assistance: Total Footwear Assistance: Total Toileting Assistance: Total (Vanegas) Bed Mobility Rolling Left and Right Assistance: Moderate assistance (x 2 person assist) Sitting to Lying Assistance: (Patient in chair upon conclusion of sesison) Lying to Sitting Assistance: Maximum assistance (x 2 person assist) Functional Transfers Sit to Stand Assistance: Not attempted, medical/safety concerns Chair/Bed to Chair/Bed Assistance: Maximal (x 2 person assist - lateral transfer using slideboard to wheelchair) Functional Mobility Walking Assistance: Not attempted, medical/safety concerns Activity Tolerance Endurance: Tolerates 30 min activity with multiple rests Static Sitting Balance Static Sitting-Level of Assistance: Contact guard, Moderate assistance (Brief period of CGA but primarily mod assist with significant UE support) Static Sitting-Balance Support: Right upper extremity supported, Left upper extremity supported, Feet supported Dynamic Sitting Balance Dynamic Sitting-Level of Assistance: Maximum assistance (Very fearful of falling) Static Standing Balance Static Standing-Level of Assistance: Not attempted, medical/safety concerns Dynamic Standing Balance Dynamic Standing-Level of Assistance: Not attempted, medical/safety concerns Cognitive Status: Cognition Overall Cognitive Status: Within Functional Limits Arousal/Alertness: Appropriate responses to stimuli Orientation Level: Oriented X4 Following Commands: Follows all commands and directions without difficulty Safety Judgment: Good awareness of safety precautions Awareness of Errors: Good awareness of errors made Deficits: Fully aware of deficits Attention Span: Appears intact Memory: Appears intact Perseveration: Not present Problem Solving: Able to problem solve independently Vision - Basic Assessment Current Vision: Wears glasses all the time Vision - Complex Assessment Ocular Range of Motion: Within Functional Limits Perception Inattention/Neglect: Unable to maintain midline in sitting Initiation: Appears intact Motor Planning: Appears intact Proprioception Proprioception: Severe deficits in the RLE, Severe deficits in the LLE (UEs intact) Sensation Light Touch: Severe deficits in the RLE, Severe deficits in the LLE (UEs intact) Sharp/Dull: Severe deficits in the LLE, Severe deficits in the RLE (UEs intact) Extremity Assessments: Hand Function Gross Grasp: Functional Coordination Coordination: Functional RUE Assessment RUE Assessment: Within Functional Limits RUE Assessment Comments: Shoulder flexion to 90 degrees; formal MMT deferred due to spine precautions LUE Assessment LUE Assessment: Within Functional Limits LUE Assessment Comments: Shoulder flexion to approx 80 degrees; formal MMT deferred due to spine precautions. Slightly weaker than RUE. ASSESSMENT Pt demonstrated Good tolerance to this therapy session. Pt left seated in wheelchair with call light within reach and all needs met, family at bedside. RN notified of patient's progress and level of assist required for mobility. OT is recommending OT Discharge Recommendations: Inpatient rehab facility placement and Equipment Recommended: Bedside commode, Mill Operator Helper, Sock aide, Tub transfer bench (Wheelchair with removable armrests and footrests, drop arm bedside commode, slide board. DME needs to be further assessed at next level of care) at discharge. AM-PAC Inpatient Daily Activity Short Form Scoring Form: Unable: 1 A Lot: 2 A Little: 3 None: 4 How much help from another person does the patient currently need? Putting on and taking off regular lower body clothing? [x] [] [] [] Bathing (including washing, rinsing, drying)? [x] [] [] [] Toileting, which includes using toilet, bedpan, or urinal? [x] [] [] [] Putting on and taking off regular upper body clothing? [] [x] [] [] Personal grooming such as brushing teeth? [] [] [x] [] Eating meals? [] [] [] [x] Score: 09/19 OT Assessment OT Assessment/ Barriers to Discharge: Decreased ADL status, Decreased upper extremity strength, Decreased endurance, Decreased functional mobility, Decreased IADLs, Decreased trunk control for functional activities, Decreased sensation Prognosis: Good (for goals) Evaluation/Treatment Tolerance: Patient tolerated treatment well Medical Staff Made Aware: Yes Comments: Nursing updated PLAN Acute Care Plan: Treatment Interventions: ADL retraining, Functional transfer training, UE strengthening/ROM, Endurance training, Patient/family training, Equipment evaluation/education, Neuromuscular reeducation, Compensatory technique education OT Plan: Skilled OT OT Frequency : 5 days per week OT Duration of Sessions: PRN OT Treatments per day: 1 time per day OT Discharge Recommendations: Inpatient rehab facility placement Equipment Recommended: Bedside commode, Mill Operator Helper, Sock aide, Tub transfer bench (Wheelchair with removable armrests and footrests, drop arm bedside commode, slide board. DME needs to be further assessed at next level of care) Encounter Problems Encounter Problems (Active) Template: Occupational Therapy Problem: Balance Goal: Maintains static standing balance without upper extremity support Dates: Start: 11/12/22 Expected End: 11/26/22 Description: Goal Type: STG, Performance Level: Stand by Assist Problem: Compromised Skin Integrity Goal: Patient demonstrates pressure reduction techniques Dates: Start: 11/12/22 Expected End: 11/26/22 Description: Goal Type: STG, Performance Level: Independent Problem: Dressing Upper Extremities Goal: Patient will demonstrate use of appropriate intervention for safe dressing of upper extremities Dates: Start: 11/12/22 Expected End: 11/26/22 Description: Goal Type: STG, Performance Level: Stand by Assist Problem: Dressings Lower Extremities Goal: Patient will utilize adaptive techniques/equipment to dress lower body Dates: Start: 11/12/22 Expected End: 11/26/22 Description: Goal Type: STG, Performance Level: Mod assist Problem: Safety Goal: Patient will adhere to cervical and back precautions during ADL's and transfers Dates: Start: 11/12/22 Expected End: 11/26/22 Description: Goal Type: STG, Performance Level: Independent Problem: Transfers Goal: Patient will perform toilet transfer Dates: Start: 11/12/22 Expected End: 11/26/22 Description: Goal Type: STG, Performance Level: Mod assist and Sliding board Encounter Problems (Resolved) There are no resolved problems. EDUCATION Education Documentation Precautions, taught by Carol Sepulveda OT at 11/12/2022 2:22 PM. Learner: Patient Readiness: Acceptance Method: Explanation, Demonstration Response: Verbalizes Understanding ADL Training, taught by Carol Sepulveda OT at 11/12/2022 2:22 PM. Learner: Patient Readiness: Acceptance Method: Explanation, Demonstration Response: Verbalizes Understanding Education Comments No comments found. * Laury Wu PT - 11/12/2022 10:15 AM EST Physical Therapy Patient: Armand Barron Age: 67 y.o. Sex: male Weakness [facility] Physical Therapy Evaluation Multi-Disciplinary Rounding Report Ambulation: Distance Ambulated (ft): 0 PLOF: Level of Long: Independent with mobility and functional transfers Lives With: Alone Type of Home: Apartment Home Adaptive Equipment: None Home Layout: One level Home Access: Stairs to enter with rails Prior Function Comments: Pt functioned independently at baseline until Wednesday when his legs became weak resulting in a couple falls that preceeded this admission. DME Needs: PT Discharge Recommendation: Inpatient rehab facility placement Reason for current recommendation based on assessment: At present pt requires [id number] persons for completion of logroll, supine to/from sitting, slide board transfer to wheelchair. Pt lacks sufficient strength in B LE to allow for attempts at standing. For a brief time pt able to sit at EOB statically with supervision but does require heavy use of B UE for support, removal of one hand results in requirement for min-modA to maintain static position. PT recommending intensive therapy at discharge to work toward pt regaining a functional level of independence with mobility as well as bowel and bladder control. SUBJECTIVE PT evaluation completed. Pt admitted with weakness and numbness in B LE resulting in falls, onset of both symptoms was rapid. Imaging findings are very concerning for spinal metastasis at T7 and T2 with a kyphotic deformity at T2 and severe spinal cord compression at both levels. 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 Pt was cleared for physical therapy services by JOHN Moreno. Patient supine in bed at start of thesession. Pt with subjective reports of 2/10 lower neck pain this date and was agreeable to participate in therapy session. Past Medical History: Diagnosis Date Cord compression (CMS/HCC) 11/10/2022 T2-T7 cord compression Hypercholesteremia Hypertension Hypothyroidism Vitamin deficiency Past Surgical History: Procedure Laterality Date CHOLECYSTECTOMY 09/27/1989 SPINAL CORD DECOMPRESSION 11/11/2022 Fusion Decompression T8-T9, T2 tumor removal, T2-T7 spinal cord compression Cervical Spine Images Cervical Spine x-ray Results for orders placed during the hospital encounter of 05/07/22 XR Cervical Spine 4-5 Views Narrative EXAM: XR CERVICAL SPINE 4-5 VIEWS, XR THORACIC SPINE 2 VIEWS. DATE OF EXAM: 05/07/2022 12:33 PM. HISTORY: upper back pain. Upper mid back pain for 2 weeks. COMPARISON: Two-view chest x-ray dated 02/23/2017. Impression Cervical spine: No acute bony abnormality. Mild multilevel degenerative changes of the cervical spine. Left neural foramen are not optimally in plane on the oblique view. There is suggestion of some right bony neural foraminal narrowing at C5-C6 and C6-C7. Thoracic spine: No acute bony abnormality. Mild degenerative changes of the thoracic spine. 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 OBJECTIVE Precautions: Precautions Medical Precautions: Fall Risk (Pt with i.v. access, pulse oximeter, DARBY X 1, vanegas catheter, telemetry) Safety Interventions: Call lock within reach, ID band on, Gait belt Orthopedic Precautions: Back Precautions, Cervical Precautions Orthoses Applied: (Per Dr Tao pt does not require a brace) Vitals/Pain: Vital Signs SpO2: 94 % Oxygen Therapy SpO2: 94 % Pulse Oximetry Type: Continuous Pulse Oximetry Location: Left, Finger Oximetry Probe Site Changed: No Patient Activity: At rest Oxygen Therapy: None (Room air) Pain Assessment Pain Assessment: 0-10 Pain Score: 2 Pain Type: Acute pain, Surgical pain Pain Location: Neck Pain Orientation: Lower, Posterior Pain Radiating Towards: between shoulder blades Pain Descriptors: Aching, Dull Pain Interventions: Repositioned, RN notified (Comment), Ambulation/increased activity, Rest Response to Interventions: Pt did not report increased pain with mobility, does report fear of falling but is very motivated to work with PT and progress as much as able. Cognition: Cognition Arousal/Alertness: Appropriate responses to stimuli Orientation Level: Oriented X4 Following Commands: Follows all commands and directions without difficulty Home Living: Home Living Type of Home: Apartment Lives With: Alone Home Adaptive Equipment: None Home Layout: One level Home Access: Stairs to enter with rails Entrance Stairs-Rails: Rail on the right going up Entrance Stairs-Number of Steps: 10 Prior Function: Prior Function Level of Long: Independent with mobility and functional transfers Indoor Mobility Assistance: Independent Stairs Assistance : Independent Do you drive?: Yes Mode of Transportation: Car 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) Which is your dominant hand?: Right Prior Function Comments: Pt functioned independently at baseline until Wednesday when his legs became weak resulting in a couple falls that preceeded this admission. General Assessments: Activity Tolerance Endurance: Endurance does not limit participation in activity Static Sitting Balance Static Sitting-Level of Assistance: Close supervision, Moderate assistance Static Sitting-Balance Support: Right upper extremity supported, Left upper extremity supported, Feet supported Static Sitting-Comment/Number of Minutes: Once in midline sitting position with legs in 90/90/90 hip/knee/ankle positioning and pt's arms in tripod position he was able to sit with close supervision however with fatigue he required increased support up to ModA. Dynamic Sitting Balance Dynamic Sitting-Level of Assistance: Minimum assistance, Moderate assistance Dynamic Sitting-Balance: (B UE strength testing with OT) Dynamic Sitting-Balance Support: Feet supported, Unilateral upper extremity supported Dynamic Sitting-Comments: With L ue elevated off the bed ModA required to maintain static sitting position, with R UE elevated from bed surface only Varun required. Sensation Light Touch: Severe deficits in the RLE, Severe deficits in the LLE Sharp/Dull: Severe deficits in the LLE, Severe deficits in the RLE Proprioception Proprioception: Severe deficits in the LLE, Severe deficits in the RLE Postural Control Postural Control: Deficits on evaluation Trunk Control: Pt able to initiate trunk musculature however requires increased time to initiate activation and with fair control. Requires heavy reliance on B UE to maintain sitting position at EOB in tripod position. Functional Assessments: Bed Mobility Rolling Left and Right Assistance: Moderate assistance, Moderate verbal cues (ModAx2) Rolling Left and Right Deficit: Verbal cueing, Steadying, Supervision/safety awareness, Increased time to complete, Assist with left leg, Assist with right leg Lying to Sitting Assistance: Maximum assistance, Moderate verbal cues, Moderate tactile cues (MaxAx2) Lying to Sitting Deficit: Assist to scoot to edge of bed, Assist to push upper body to upright, Assist lifting right leg off of bed, Assist lifting left leg off of bed, Increased time to complete, Supervision/safety awareness, Verbal cueing, Steadying Transfers Chair/Bed to Chair/Bed Transfer Assistance: Maximum assistance, Moderate verbal cues, Moderate tactile cues (maxAx2) Chair/Bed to Chair/Bed Transfer Deficit: Assist for weight shifting, Assist for trunk control, Increased time to complete, Supervision/safety awareness, Verbal cueing, Steadying (via slide board transfer) Ambulation Distance Ambulated (ft): 0 Comments: Pt does not at present have the strength in his legs to accomodate walking Wheelchair Activities Wheelchair Parts Management: Yes Right Leg Rest Level of Assistance: Dependent Left Leg Rest Level of Assistance: Dependent Right Brakes Level of Assistance: Moderate verbal cues, Close supervision Left Brakes Level of Assistance: Moderate verbal cues, Close supervision Wheel 50 feet with 2 turns: Assistance: (supervision and moderate verbal cues required for straightpaths and mod-maxA to maneuver wheelchair in small confined spaces.) Wheel 50 feet with 2 turns: Deficit: Increased time to complete, Supervision/safety awareness, Verbal cueing, Limited endurance Extremity Assessments: RUE Assessment RUE Assessment: (per OT assessment) LUE Assessment LUE Assessment: (per OT assessment) Strength RLE R Hip Flexion: 0/5 R Hip ABduction: 1/5 R Hip ADduction: 1/5 R Knee Flexion: 0/5 R Knee Extension: 1/5 R Ankle Dorsiflexion: 0/5 R Ankle Plantar Flexion: 0/5 Strength LLE L Hip Flexion: 0/5 L Hip ABduction: 1/5 L Hip ADduction: 1/5 L Knee Flexion: 0/5 L Knee Extension: 1/5 L Ankle Dorsiflexion: 0/5 L Ankle Plantar Flexion: 0/5 Additional Assessments: AM-PAC 6 Clicks Scoring Form: Unable: 1 A Lot: 2 A Little: 3 None: 4 How much difficulty does the patient currently have? Turning over in bed (including adjustment of bedclothes, sheets, and blankets) [] [x] [] [] Sitting down on and standing up from a chair with arms (wheelchair, bedside commode etc [x] [] [] [] Moving from lying on back to sitting on the side of the bed [] [x] [] [] How much help from another person does the patient currently need? Moving to and from a bed to a chair ( including a wheelchair) [] [x] [] [] To walk in hospital room [x] [] [] [] Climbing 3-5 steps with a railing [x] [] [] [] Score: 06/20 Procedure/Treatment: Therapeutic Activity Therapeutic Activity Time Entry: 5 Therapeutic Activity 1: Pt was educated on spine precautions, hand out provided. Pt verbalized understanding but does require further education as he continues to require upwards of moderate verbal cues. Wheelchair Management Wheelchair Management Time Entry: 10 Wheelchair Management Activity 1: W/C propulsion Mod-maxA to maneuver in small space and complete turns and close supervision and moderate cues on technique for straight pathways. ASSESSMENT Pt demonstrated Good tolerance to this therapy session. Pt left sitting in bedside chair with call light within reach and all needs met. JOHN Moreno notified of patients progress and level of assist required for mobility. Patient was seen as a co-treat with occupational therapy services secondary to medically complexityof the patient and requirement for two skilled persons to mobilize the patient safely. PT Assessment PT Assessment/ Barriers to discharge: Decreased strength, Decreased endurance, Impaired balance, Impaired gait, Decreased mobility, Impaired tone, Pain, Orthopedic restrictions Prognosis: Good Evaluation/Treatment Tolerance: Patient tolerated treatment well Medical Staff Made Aware: Yes Comments: JOHN Moreno updated PLAN Acute Care Plan: Treatment/Interventions: Functional transfer training, LE strengthening/ROM, Patient/family training, Equipment eval/education, Bed mobility, Gait training, Balance training PT Plan: Skilled PT PT Frequency: 7 days per week PT Treatments per day: 1-2 times per day PT Discharge Recommendations: Inpatient rehab facility placement Encounter Problems Encounter Problems (Active) Template: Physical Therapy Problem: Balance Goal: Maintains static sitting balance without upper extremity support Dates: Start: 11/12/22 Expected End: 11/27/22 Description: X 2 minutes with CGA Goal: Maintains dynamic sitting balance with upper extremity support Dates: Start: 11/12/22 Expected End: 11/27/22 Description: X 5 minutes with no greater than Varun required to recover from LOB Problem: Mobility Goal: Patient will propel the wheelchair Dates: Start: 11/12/22 Expected End: 11/27/22 Description: 100 feet without rest break with close supervision in wide open space of hallway Outcomes Date/Time User Outcome 11/12/22 1343 Laury Wu, PT Progressing Problem: Safety Goal: Patient will adhere to spine precautions during the completion of mobility skills Dates: Start: 11/12/22 Expected End: 11/27/22 Description: Minimal verbal cues Outcomes Date/Time User Outcome 11/12/22 1343 Laury Wu, PT Progressing Problem: Transfers Goal: Patient to transfer to and from sit to supine via logroll Dates: Start: 11/12/22 Expected End: 11/27/22 Description: ModA Goal: Patient will roll via logroll Dates: Start: 11/12/22 Expected End: 11/27/22 Description: ModA Goal: Pt to complete slide board transfer to/from wheelchair with Dates: Start: 11/12/22 Expected End: 11/27/22 Description: ModA Encounter Problems (Resolved) There are no resolved problems. EDUCATION Education Documentation Spine Precautions, taught by Laury Wu PT at 11/12/2022 1:45 PM. Learner: Family, Patient Readiness: Acceptance Method: Explanation, Demonstration, Handout, Teach-back Response: Verbalizes Understanding, Needs Reinforcement Body Mechanics, taught by Laury Wu, PT at 11/12/2022 1:45 PM. Learner: Family, Patient Readiness: Acceptance Method: Explanation, Demonstration, Handout, Teach-back Response: Verbalizes Understanding, Needs Reinforcement Mobility Training, taught by Laury Wu PT at 11/12/2022 1:45 PM. Learner: Family, Patient Readiness: Acceptance Method: Explanation, Demonstration, Handout, Teach-back Response: Verbalizes Understanding, Needs Reinforcement Education Comments No comments found. * Renuka Addison MD - 11/12/2022 8:48 AM EST Hematology / Oncology Progress Report Chief Complaint : Follow-up cord compression Progress Note : Hematologic/Oncologic Hx: Patient with history of worsening paresthesias and upper back pain who presented on November 10 with inability to move his legs. He was found to have cord compression at T2 and T7. He did undergo surgery on November 11 and did have removal of an epidural tumor. Pathology is pending. Interval Hx: Patient appears to be doing well postop. He does have some sensation and mild movementin his lower extremities. Pathology is pending Labs: Pathology: Pending Imaging: Assesment : Epidural mass causing cord compression status post surgery. Recommendations : Await final pathology. Time spent: Greater than 50% of the time was spent [id number] reviewing the diagnostic studies, diagnosis, natural history, and treatment options, and answering questions. Diagnostic Data : Today's vital signs, pertinent laboratory, imaging, and pathology reviewed. Please reference Electronic Medical Record for today's results. * Julieta Lin NP - 11/12/2022 6:14 AM EST Neurosurgery Progress Note Patient: Armand Barron Room: 2E27/1M97-31 Age: 67 y.o. Attending: Fahad Mccoy MD Date of Service: 11/12/22 Admit: 11/10/2022 PCP: Salena Flores NP DARBY drain discontinuation @ 1150 DARBY drain was removed at . Original surgical dressings were removed. Surgical dressing did have serosanguinous drainage on dressing. Surgical incision is closed with deborah and is intact. DARBY site hadclear suture. DARBY was decompressed and removed. Remaining suture was tied to approximate DARBY site. JPsite and surgical incision were covered with mepilex. Spoke with patient's RN - notify NS FREDI if increased drainage from either site. Assessment/Plan Kaleb Barron is a 67 year old male who presented to [facility] on 11/10/2022 with progressive loss of motor and sensory function in his legs over the preceding 7- 10 days. 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 A CTA C/A/P was done which did not show primary tumor. Oncology was consulted. Dr. Tao took the patient to the OR on 11/11/2022. POD 1 C7-T4 posterior fusion by pedicle screw fixation T2, T7 removal of epidural tumor by laminectomy, facetectomy, foraminotomy - Neuro checks q4h - Notify NS FREDI with any change in neuro exam - Dressing: reinforce if staining noted - Drain: DARBY to full suction - On Ancef while drain in place - Empty and record each shift - Will discontinue drain later today - Pain: PRN Oxycodone, Tylenol - Steroids: on Decadron 4mg q6h - Scheduled Protonix - Activity: as tolerated with assistance, log roll, no bending - PT/OT consulted - no brace per Dr. Tao - VTE: BLE SCD's and HARVEY's only - No anticoagulants, antiplatelets, or NSAIDS unless cleared by Neurosurgery - Bowel regimen: Scheduled senna, PRN senna available - Dr. Addison with Hem/Onc following - working up for Myeloma - Will consult Rad/Onc - Please scheduled follow up appointments prior to patient discharge so patient is not missed once discharged Disposition: - ADOD: pending clinical course - Recommend Marina Montero for IPR Julieta Lin NP Send message via KDW with further questions. Greater than 35 minutes were spent including face to face interview/education, and chart review including multiple provider notes, diagnostic testing results, and lab review. Greater than 50% of timespent in face to face counseling with patient. Subjective Patient states he is doing ok this morning. He states he has pain near his neck but it is controlled at this time. He states he feels like the numbness is decreased today from yesterday and that his legs feel less heavy this AM. He does states that his right leg feels bent, even when it is not, like he is in a sitting position. Denies numbness or tingling in bilateral upper extremities. Objective Vitals: 11/12/22 0313 BP: 111/70 Pulse: 66 Resp: 16 Temp: 36.9 C (98.4 F) SpO2: 90% Mental Status: Alert & oriented x 4 Language: Speech is fluent, non-dysarthric, able to follow commands Fund of knowledge: aware of current events, vocabulary is normal Cranial Nerve Exam: 2nd cranial nerve: visual marie full to confrontation and pupils equal round and reactive to light 3rd, 4th and 6th cranial nerves: extraocular movements intact, no nystagmus 7th cranial nerve: facial muscles move symmetrically 8th cranial nerve: hearing grossly intact to voice Sensation: Sensory exam completed: grossly intact to light touch, able to differentiate which leg I am touching without being able to see which leg I am touching No saddle anesthesia Motor: Muscle strength was assessed in all extremities BUE grasp/biceps/triceps/deltoid = 5/5 BLE DF/PF/KF/KE/HF/HE = 0/5 Reflexes: No Tyson's No clonus GI: Abdomen soft, nontender Pulmonary: Respirations are regular and unlabored Cardiac: No edema : Voiding via vanegas cather Incision: Original dressing in place - intact, light shadowing noted, but not through entire dressing DARBY drain: 220 mL out since OR drainage color: serosang to full compression Medications Allergies: No Known Allergies Current Medications: Current Facility-Administered Medications: acetaminophen (TYLENOL) tablet 650 mg, 650 mg, oral, q6h PRN, Fahad Mccoy MD amLODIPine (NORVASC) tablet 10 mg, 10 mg, oral, Daily, Fahad Mccoy MD, 10 mg at 11/11/22 08 atorvastatin (LIPITOR) tablet 10 mg, 10 mg, oral, Daily, Fahad Mccoy MD, 10 mg at 11/11/22 08 ceFAZolin (ANCEF) 2 gram/20 mL IV syringe 2 g, 2 g, intravenous, q8h, [place], [place], 2 g at 11/11/22 230 dexamethasone (DECADRON) injection 4 mg, 4 mg, intravenous, q6h DAVID, Renuka Addison MD, 4 mg at 11/11/22 230 levothyroxine (SYNTHROID, LEVOTHROID) tablet 88 mcg, 88 mcg, oral, Daily, Fahad Mccoy MD metoprolol tartrate (LOPRESSOR) tablet 50 mg, 50 mg, oral, BID, Fahad Mccoy MD, 50 mg at 11/11/222104 ondansetron ODT (ZOFRAN-ODT) disintegrating tablet 4 mg, 4 mg, oral, q8h PRN OR ondansetron (PF) (ZOFRAN) injection 4 mg, 4 mg, intravenous, q8h PRN, Fahad Mccoy MD oxyCODONE (ROXICODONE) immediate release tablet 5 mg, 5 mg, oral, q4h PRN, [place], [place], 5 mg at 11/12/22 0317 pantoprazole (PROTONIX) EC tablet 40 mg, 40 mg, oral, q AM AC, Fahad Mccoy MD promethazine (PHENERGAN) tablet 25 mg, 25 mg, oral, q6h PRN OR promethazine (PHENERGAN) suppository 25 mg, 25 mg, rectal, q12h PRN, [place] ropivacaine (NAROPIN) 0.5 % 246.25 mg, EPINEPHrine (ADRENALIN) 1 mg/mL 0.5 mg, ketorolac (TORADOL) 30 mg, cloNIDine (DURACLON) 80 mcg in sodium chloride 0.9 % 100 mL injection, , irrigation, Once, Ish Tao Jr., MD senna (SENOKOT) tablet 17.2 mg, 2 tablet, oral, Nightly PRN, JEFFERY Bernardo senna (SENOKOT) tablet 17.2 mg, 2 tablet, oral, Nightly, JEFFERY Holden, 17.2 mg at 11/11/222104 [COMPLETED] Insert peripheral IV, , , Once AND Maintain IV access, , , Until discontinued AND [COMPLETED] Saline lock IV, , , Once AND sodium chloride 0.9 % flush 10 mL, 10 mL, intravenous, BID, 10 mL at 11/11/22 0825 AND sodium chloride 0.9 % flush 10 mL, 10 mL, intravenous, PRN, JEFFERY Bernardo [COMPLETED] Insert peripheral IV, , , Once AND Maintain IV access, , , Until discontinued AND [COMPLETED] Saline lock IV, , , Once AND sodium chloride 0.9 % flush 10 mL, 10 mL, intravenous, BID, 10 mL at 11/11/22 0823 AND sodium chloride 0.9 % flush 10 mL, 10 mL, intravenous, PRN, Fahad Mccoy MD sodium chloride 0.9 % infusion, 125 mL/hr, intravenous, Continuous, Fahad Mccoy MD, Last Rate: 125 mL/hr at 11/11/229, 125 mL/hr at 11/11/22428 vancomycin (VANCOCIN) 1 g in sodium chloride 0.9 % 1,000 mL OR irrigation, , irrigation, Once, Ish Tao Jr., MD Radiology/Diagnostics No new imaging to review Labs Lab Results Component Value Date CREATININE 1.18 11/11/2022 BUN 29 (H) 11/11/2022 NA 137 11/11/2022 K 4.0 11/11/2022 CL 104 11/11/2022 CO2 24 11/11/2022 WBC 6.9 11/11/2022 RBC 3.72 (L) 11/11/2022 HGB 11.5 (L) 11/11/2022 HCT 34.5 (L) 11/11/2022 PLT 197 11/11/2022 PT 14.8 (H) 11/10/2022 INR 1.1 11/10/2022 No results found for: CSFCX, URINECX, CULTURE, BLOODCX * Monica Delgado RN - 11/12/2022 4:51 AM EST Goals: Problem: Sensory: Goal: Demonstrates/reports adequate pain control Outcome: Progressing Identify possible barriers to meeting goals/advancing plan of care: none Stability of the patient: Moderately Stable - Low risk of patient condition declining or worsening End of Shift Summary: pt's pain controlled with pain meds * oMnica Delgado RN - 11/11/2022 8:20 PM EST Pt. Back in room from PACU * Sophia Alamo RN - 11/11/2022 7:01 PM EST In pacu * Brie Ulloa RN - 11/11/2022 11:18 AM EST MDR's complete. Patient remains in house for continued medical management. Plan for surgery today 09/10/2023 for T2-T7 compression fracture and tumor biopsy. Vanegas placed for retention. * Sterling Snyder MD - 11/11/2022 9:20 AM EST Images from the original note were not included. Sterling Snyder MD [facility] Hospitalists Daily Progress Note Patient Name: Armand Barron PCP: Salena Flores NP Perpetual Assessment: Armand Barron is a 67 y.o. male who presented from home on 11/10/2022 with past medical history of essential hypertension presented with complaints of bilateral lower extremity complete paralysis. Found to have cord compression felt to be related to malignancy Oncology and neurosurgery consulted Assessment and Plan Acute bilateral lower extremity paralysis Compression fractures, T2 and T7 Metastatic osseous disease Cord compression Nausea -Presented with bilateral lower extremity acute weakness /paralysis- inability to move legs -Imaging as noted below, shows T2 and T7 compression fractures, cord compression due to epidural tumor. -MRI of the C-spine, T-spine and L-spine already done. Apart from the findings noted above, has diffuse DDD. - CT chest /abdomen also done- results reviewed, mediastinal/ hilar lymphadenpathy and osseus lesions showing compression and central canal involvement, no clear cut primary tumor, - continue supportive care with IV fluids, antiemetics and pain medications. Continue Vanegas catheter for now -Hold all AC/AP - seen by oncology and workup in progress, dexamethasone started -Neurosurgery consulted for cord compression and has discussed with oncology, neurosurgery planningOR today for decompression/ biopsy of tumor Pre-Op Evaluation - The patient is being evaluated for a high risk surgery - The patient has no symptoms - The patient's functional capacity is >4 METS - The patient has the following pertinent Revised Cardiac Risk Index Indicators high risk surgery - Based on the above, the patient is at moderate risk to proceed to surgery - The patient may proceed to surgery, with comments/risks as noted above - Other recommendations: No further work-up is necessary given acuity of the situation. May go to surgery per neurosurgeon discretion. Patient at baseline prior to his bilateral lower extremity weakness / paralysis starting, he has no prior history of CAD, CHF, CVA or COPD Acute kidney injury -Baseline creatinine normal, creatinine on presentation 1.5. - pt did receive contrast for MRI and CTs - started on IV fluids and creatinine today 1.1, continue to monitor creatinine levels - Continue to avoid nephrotoxins. Essential hypertension - continue home metoprolol and Norvasc - blood pressures reviewed and in acceptable ranges - will continue to monitor bp and make adjustments as needed Hypothyroidism - continue synthroid per home regimen - stable with no acute issues Hyperlipidemia - continue statin per home regimen - stable with no acute issues GERD -continue PPI Constipation -Likely due to cord compression. -Plan as above. Code Status: Full Code DVT Prophylaxis: scd/teds Expected Date of Discharge: to be determined Medical/Social Complexity and Disposition: Patient requires continued hospitalization due to spinal cord compression requiring urgent cord decompression surgery, workup in progress to determine underlying malignancy, neurosurgery and oncologyfollowing, treatment plan reviewed with patient,. For OR today History HPI and ROS: pt continues to have lower extremity paralysis , denies chest pain or sob, denies nausea or vomiting, plan for OR today discussed with patient, Physical Examination Temp: 37.2 C (99 F) (11/11 805) Heart Rate: 82 (11/11 805) Resp: 18 (11/11 805) BP: 120/75 (11/11 805) GENERAL: Awake, not in distress CV: Regular rate and rhythm, no murmurs. RESP: Clear to auscultation bilaterally GI: Soft, non-tender. NEURO: Alert, Ox3. Lower extremity paralysis Reviewed 11/11/22 9:20 AM EST: [x] Laboratory [x] Radiology [] Cardiology [x] Medications [x] Transcriptions [] Microbiology [x] Outside Records [] Family * Angelita Woodall RN - 11/11/2022 8:06 AM EST Problem: Cognitive: Goal: Medications Outcome: Progressing Problem: Cognitive: Goal: Mental Status/LOC/Awareness Outcome: Progressing Goals: Patient will cooperate with staff and understand how and why he takes the prescribed medications. Identify possible barriers to meeting goals/advancing plan of care: Pain, lack of mobility . Stability of the patient: Moderately Stable - Low risk of patient condition declining or worsening End of Shift Summary: Patient's blood pressure has remained stable at 121/74; 115/70 and 123/73. Heart rate decreased once metoprolol was given. Started at 105 and went to 78 respectively. No reportsof pain. Every two hour turns offered. * Renuka Addison MD - 11/11/2022 7:38 AM EST Hematology / Oncology Progress Report Chief Complaint : Follow-up cord compression Progress Note : Hematologic/Oncologic Hx: Patient with history of worsening paresthesias and upper back pain who presented on 214 with inability to move his legs. He was found to have cord compression at T2 and T7 with compression fractures worrisome for metastatic disease. CT of the chest abdomen pelvis do not show any clear- cut primary tumor. Work-up for myeloma in progress. Patient is due for surgery today. Patient was begun on dexamethasone yesterday Interval Hx: Patient feeling about the same no increased strength in his legs. He does state that he has a number of broken teeth and has not seen the dentist for 17 years. Labs: Pathology: Imaging: Assesment : Cord compression at T2 and T7 most likely related to malignancy. Recommendations : Patient for surgery for decompression and biopsy. Time spent: Greater than 50% of the time was spent [id number] reviewing the diagnostic studies, diagnosis, natural history, and treatment options, and answering questions. Diagnostic Data : Today's vital signs, pertinent laboratory, imaging, and pathology reviewed. Please reference Electronic Medical Record for today's results. * Angelita Woodall RN - 11/10/2022 11:02 PM EST Patient stated to RN that he has four molars that have split apart in his mouth. He reports not going to a dentist recently. Patient wants physician to know that one molar split in 2006, two molars split between 2019 and 2020 and last molar split in 2021. * Mary Alice Laguerre RN - 11/10/2022 3:31 PM EST Pastor Note CM met with pt. And completed initial assessment Patient mentation at time of initial Assessment: alert and oriented to person, place, and time Patient Directives: Patient A&O, no HCPOA / no Living Will Patient Next of Kin / Surrogate Decision Maker is Brother: Alex Barron [phone], Sister Coty Pool [phone] Baseline: Patient's baseline at time of admission: Home Independent (Alone) Living Situation: Patient resides: Apartment 2nd level or higher Patient with following DME prior to this admission: NONE Steps to enter home: 6 - 10 steps Steps within home: no steps Home Health Services: None Patient lives: Alone Address confirmed from chart: Yes and was correct Insurance provider confirmed from chart: Yes and was correct PCP confirmed from chart: Yes and was correct Pharmacy: [facility] [address] [x] Confirmed with patient Patient is able to afford medications Support: Patient has: No support Pt. states his family lives in [facility]. CM encouraged pt. to call family and provide update on status along with requesting family support if needed Assessments needed for discharge: Patient will require therapy assessments and updates Anticipated needs at discharge: Transport: Will need Ambulance Discharge destination: TBD SIMIN: TBD * Niharika Salgado RN - 11/10/2022 2:40 PM EST MRI form complete Niharika Salgado RN 11/10/22 1440 * Melissa Lopez RN - 11/10/2022 2:06 PM EST Extremity weakness neuro sx and needs new oncology * Tawana Dyson RN - 11/10/2022 10:42 AM EST Pt presents to ED via EMS w/c/o was seen at for constipation. Pt lost the use of bilateral legs yesterday, pt is unable to walk. Pt skin w/p/d, in NAD, resp. easy unlabored, AOx4. * Rico Bhat MD - 11/10/2022 10:36 AM ESTAssociated Order(s): Critical Care Images from the original note were not included. EMERGENCY MEDICINE NOTE Chief Complaint: Chief Complaint Patient presents with Extremity Weakness HPI: The patient, Armand Barron, is a 67 y.o. male presents for worsening lower extremity weakness. He reports over the last few days his weakness in his legs have progressed along with numbness. Left greater than right, today cannot move his legs at all. He reports that his symptoms started with upper thoracic back pain that can radiate into the scapular region last year, he has been seeing his primary care doctor for it and was referred to Ortho at 1 point. He has had cervical and thoracic spine x-rays that were unremarkable as far as he knows. Pain has been persistent and now developing with these new symptoms. He also relates that he has had some constipation issues recently as well asinability to urinate. History Provided By: Patient and EMS Review of Systems Pertinent positive and negative noted in above HPI, otherwise all other systems reviewed and are negative. Physical Exam Vitals: 11/10/22 1047 11/10/22 1105 11/10/22 1113 11/10/22 1130 BP: 124/85 (!) 146/93 Pulse: 110 (!) 111 Resp: 21 15 Temp: 36.6 C (97.8 F) TempSrc: Axillary SpO2: 100% 100% Weight: 80.7 kg (178 lb) Height: 1.651 m (65) Physical Exam Vitals and nursing note reviewed. Constitutional: Appearance: Normal appearance. HENT: Head: Normocephalic and atraumatic. Nose: Nose normal. Mouth/Throat: Mouth: Mucous membranes are moist. Eyes: Pupils: Pupils are equal, round, and reactive to light. Cardiovascular: Rate and Rhythm: Normal rate and regular rhythm. Pulmonary: Effort: Pulmonary effort is normal. Breath sounds: Normal breath sounds. Abdominal: General: There is distension. Palpations: Abdomen is soft. Musculoskeletal: General: Normal range of motion. Cervical back: Neck supple. Skin: General: Skin is warm and dry. Neurological: Mental Status: He is alert and oriented to person, place, and time. Sensory: Sensory deficit present. Motor: Weakness (BL LE, 0/5, absent reflexes) present. Psychiatric: Mood and Affect: Mood normal. Previous Histories Past Medical History: Diagnosis Date Hypercholesteremia Hypertension Hypothyroidism Vitamin deficiency Past Surgical History: Procedure Laterality Date CHOLECYSTECTOMY 09/27/1989 Social History Tobacco Use Smoking status: Never Smokeless tobacco: Never Vaping Use Vaping Use: Never used Substance Use Topics Alcohol use: Yes Alcohol/week: 2.0 standard drinks Types: 2 Cans of beer per week Drug use: Never Family History Problem Relation Name Age of Onset Other (hypertensive disorder) Mother Other (malignant lymphoma) Mother Other (hypertensive disorder) Father Other (hypertensive disorder) Brother No Known Allergies Current Outpatient Medications Medication Instructions amLODIPine (NORVASC) 10 mg tablet TAKE 1 TABLET BY MOUTH EVERY DAY atorvastatin (LIPITOR) 10 mg tablet TAKE 1 TABLET BY MOUTH EVERY DAY cholecalciferol (VITAMIN D-3) 50,000 Units, oral, Weekly ibuprofen (ADVIL,MOTRIN) 600 mg, oral, Every 6 hours PRN levothyroxine (SYNTHROID, LEVOTHROID) 88 mcg, oral, Daily metoprolol tartrate (LOPRESSOR) 50 mg, oral, 2 times daily omeprazole (PriLOSEC) [address] capsule TAKE 1 CAPSULE BY MOUTH 1 TIME EACH DAY. DO NOT CRUSH OR CHEW. ED Course & MDM Differential in no particular order and not limited to: Back Strain, Spine fracture, cauda equina, cord compression, AAA, UTI, Pyelonephritis, Epidural Abscess, Epidural Hematoma MDM Suspect cord compression MRI with and without contrast ordered along with neurosurgical consultation., Flaccid paralysis of lower extremity with distention and likely urinary retention. Bladder scan ordered. Anticipate admission. Basic labs ordered for now. Review and summarize past medical records: Pertinent previous DC Summaries/Clinic Notes/Testing Reviewed if available. Notable Findings in MDM section above. Pulse Ox Interpretation by myself, Dr. Bhat: Oxygen saturation is 100% which is normal. Amount and/or Complexity of Data Reviewed (only if ordered or available): Clinical Labs/Radiology Ordered Below: Reviewed Labs Reviewed SEDIMENTATION RATE - Abnormal Result Value Sed Rate 85 (*) C-REACTIVE PROTEIN - Abnormal C-Reactive Protein 13.2 (*) CBC WITH AUTO DIFFERENTIAL - Abnormal WBC 9.8 RBC 3.99 (*) Hemoglobin 12.4 (*) Hematocrit 36.4 (*) MCV 91.2 MCH 31.1 MCHC 34.1 RDW 13.4 Platelets 198 MPV 10.3 MANUAL DIFFERENTIAL - INSTRUMENT DIFFERENTIAL - Abnormal Neutrophils % 81.5 (*) Lymphocytes % 10.3 (*) Monocytes % 7.2 Bands % 1.0 Neutrophils Absolute 8.09 (*) Lymphocytes Absolute 1.01 Monocytes Absolute 0.71 Polychromasia Present 1+ (*) Echinocyte/Kemmerer Cells Present Present (*) Helmet/Bite Cells Present Present (*) Total Counted 100 RAPID [id number] SCREENING, MOLECULAR CBC AND DIFFERENTIAL Narrative: The following orders were created for panel order CBC and differential. Procedure Abnormality Status --------- ------ CBC auto differential[[id number]] Abnormal Final result Please view results for these tests on the individual orders. BASIC METABOLIC PANEL MR Lumbar Spine wo and w Contrast (Results Pending) MR Thoracic Spine wo and w Contrast (Results Pending) MR Cervical Spine wo and w Contrast (Results Pending) CT Chest wo and w Contrast (Results Pending) CT Abdomen Pelvis wo and w Contrast (Results Pending) The above labs and imaging results has been independently reviewed by myself [employer] Provided: Medications sodium chloride 0.9 % flush 10 mL (has no administration in time range) And sodium chloride 0.9 % flush 10 mL (has no administration in time range) acetaminophen (TYLENOL) tablet 650 mg (has no administration in time range) ondansetron ODT (ZOFRAN-ODT) disintegrating tablet 4 mg (has no administration in time range) Or ondansetron (PF) (ZOFRAN) injection 4 mg (has no administration in time range) senna (SENOKOT) tablet 17.2 mg (has no administration in time range) sodium chloride 0.9 % flush 10 mL (10 mL intravenous Given 11/10/22 1310) gadoterate meglumine (DOTAREM) injection 15 mL (15 mL intravenous Given 11/10/22 1310) Reevaluations & Independent visualization/interpretation of labs & imaging if applicable with pertinent positives/negatives as follows: ED Course as of 11/10/22 142 [facility] Nov 10, [id number] I have reviewed the MRI and I can appreciate a thoracic spine lesion. Reviewed findings with neurosurgery and they recommend admission, low malignancy work-up. Hold on steroids for now. Will admit to hospital service Benefits/Risks of admission discussed with patient and/or health care sales training representative. I discussed the case with the hospitalist team ([facility]) for admission. They are agreeable to admission at this time. 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 (Cord Compression) Critical care was time spent personally by me on the following activities: Development of treatmentplan with patient or surrogate, evaluation of patient's response to treatment, examination of patient, obtaining history from patient or surrogate, ordering and performing treatments and interventions, ordering and review of laboratory studies, ordering and review of radiographic studies, pulse oximetry, review of old charts and re-evaluation of patient's condition I assumed direction of critical care for this patient from another provider in my specialty: yes Disposition Final Diagnosis: 1. Cord compression (CMS/HCC) Disposition: Admit to Inpatient Scheduled Future Appointments Provider [facility] 11/10/2022 11:15 AM (Arrive by 10:45 AM) [facility] MR 3T Radiology [phone] [facility] 11/10/2022 11:20 AM (Arrive by 10:50 AM) [facility] MR 3T Radiology [phone] [facility] 11/10/2022 11:25 AM (Arrive by 10:55 AM) [facility] MR 3T Radiology [phone] [facility] 11/26/2022 8:45 AM (Arrive by 8:30 AM) Michelle Eng, PT Physical Therapy [phone] [facility] 01/28/2023 8:30 AM (Arrive by 8:15 AM) Salena Flores, TIP Family Medicine [phone] [facility] Prescriptions None At time of Disposition, the patient is in Stable condition. Rico Bhat MD 11/10/22 1116 Rico Bhat MD 11/10/22 8495 documented in this encounterBrooke Glen Behavioral [id number] Hospital course Narrative* Dale Chaves DO - 11/21/2022 1:55 PM EST Recommend attempting trial of void with removal of vanegas after radiation therapy. If fails will need urology referral. documented in this encounterBrooke Glen Behavioral [id number] Consult note* Sophia Major RN - 11/20/2022 11:17 AM ESTAssociated Order(s): IP CONSULT TO IV TEAM 18g/8 cm Powerglide placed using Real time ultrasound visualization of vascular needle entry and catheter placement used. Image stored in PACS. Vein compressed easily, had brisk blood return, and flushed without resistance. Patient tolerated well. Updated RN [facility] [id number] Consult note* Sophia Major RN - 11/20/2022 11:17 AM ESTAssociated Order(s): IP CONSULT TO IV TEAM 18g/8 cm Powerglide placed using Real time ultrasound visualization of vascular needle entry and catheter placement used. Image stored in PACS. Vein compressed easily, had brisk blood return, and flushed without resistance. Patient tolerated well. Updated RN * Oc Diaz RD - 11/12/2022 1:23 PM EST 11/12/2022 @ 1:19 PM EST Reason for RD Intervention: Reason for Assessment Assessment Type: Protocol/Policy Reason for Assessment: High MST Score Nutrition Diagnosis: Diagnosis: No Acute Nutrition Dx Nutrition Recommendations/Plan of Care: Encourage po intakes, 75% or better Follow Up: Nutrition Priority Level Priority Level: Low Follow Up Date: 11/23/22 Nutritional Discharge Recommendations: History of presenting illness: Patient is a 67 y.o. male with a history of Past Medical History: Diagnosis Date Cord compression (CMS/HCC) 11/10/2022 T2-T7 cord compression Hypercholesteremia Hypertension Hypothyroidism Vitamin deficiency Past Surgical History: Procedure Laterality Date CHOLECYSTECTOMY 09/27/1989 SPINAL CORD DECOMPRESSION 11/11/2022 Fusion Decompression T8-T9, T2 tumor removal, T2-T7 spinal cord compression admitted 11/10/2022 with Weakness. Subjective Assessment: Seeing pt for MST score. No nausea, vomiting. Encourage po intakes. Reviewed dietary guidelines forgeneral healthy diet. Reviewed supplementation including vitamin d and general MVI options. Answered all pt's questions to satisfaction. Current Diet and Supplements: Dietary Orders (From admission, onward) Start Ordered 11/11/22 1757 Adult diet [facility]; General; Regular; Auto-Select Meals Diet effective now Comments: Advance as tolerated Question Answer Comment Location [facility] Diet Type (req) General General Diet Regular Is the patient able to participate in meal ordering? Auto-Select Meals 11/11/22 180 Food/Nutrition-Current Status: Food/Nutrition Status Intake Type: P.O. Current Diet Status: Appropriate Current Supplement Status: Appropriate Appetite: Good Intake Amount (%): 75-100% Oral Health: WNL Anthropometrics: Weight History: Wt Readings from Last 10 Encounters: 11/10/22 80.7 kg (178 lb) 11/05/22 81 kg (178 lb 9.6 oz) 10/09/22 83.9 kg (185 lb) 08/21/22 81.2 kg (179 lb) 07/30/22 84.4 kg (186 lb) 06/15/22 82.8 kg (182 lb 9.6 oz) 05/07/22 82.4 kg (181 lb 9.6 oz) 04/29/22 82.7 kg (182 lb 6.4 oz) 04/07/22 83.8 kg (184 lb 12.8 oz) 02/16/22 83.7 kg (184 lb 9.6 oz) Nutrition-Related Lab Values: Results from last 7 days Lab Units 11/11/22 1821 11/11/22 0316 SODIUM mmol/L -- 137 POTASSIUM mmol/L -- 4.0 CHLORIDE mmol/L -- 104 CO2 mmol/L -- 24 BUN mg/dL -- 29* CREATININE mg/dL -- 1.18 EGFR mL/min/1.73m2 -- 68 CALCIUM mg/dL -- 9.7 BILIRUBIN TOTAL mg/dL -- 0.6 ALK PHOS unit/L -- 51 ALT unit/L -- 18 AST unit/L -- 25 POCT GLUCOSE mg/dL 151* -- GLUCOSE mg/dL -- 149* WBC AUTO K/mcL -- 6.9 Pertinent nutrition-related medications reviewed on 11/12/2022. Nutrition Focused Physical Findings: Nutrition-Focused Physical Findings Overall Appearance: well nourished Oc Diaz RD, LD [facility] Clinical Dietitian Primary Floors: 3N, 3S, 2East Office: [phone] * Emanuel Guerra MD - 11/12/2022 10:35 AM ESTAssociated Order(s): IP CONSULT TO RADIATION ONCOLOGY Images from the original note were not included. RADIATION ONCOLOGY CONSULTATION Patient Name (MRN): Armand Barron ([id number]) Radiation Oncologist: Emanuel Guerra MD : 1955 Date of Service: 11/10/2022 Referring Physician: Ish Tao Jr., MD ASSESSMENT This is a 67 y.o. male who presented with thoracic spine pain and bilateral lower extremity weakness/numbness found to have multiple lytic lesions of the bone with significant disease at T2 and T7 with epidural tumor causing spinal cord compression. He underwent decompressive surgery yesterday. Pathology is pending. Findings appear to be consistent with myeloma. PLAN -Await pathology -Will require likely post-operative radiotherapy to the thoracic spine and potentially to other symptomatic sites. Would need adequate healing before proceeding with radiation treatment. -Will arrange for outpatient appointment in 2-3 weeks. Thank you for allowing us to participate in the multidisciplinary care of this patient. HISTORY OF PRESENT ILLNESS Armand Barron is a 67 y.o. male with recent finding of multiple lytic lesions in the bone including pathologic fractures of T2 and T7 with epidural tumor causing spinal cord compression. His historyis as follows: -Presented to family medicine on 11/05/22 with tingling in his legs and feet; bilateral -11/10/22- Presented to ED with worsening symptoms; now lower extremity weakness and numbness; L>R; also pain in the upper thoracic spine radiating to the scapular region -11/10/22 MRI cervical, thoracic and lumbar spine: There is a pathologic vertebral plana deformity of the T2 vertebral body. There is compression of the cord due to anterior and left dorsal epidural tumor. There is a pathologic compression fracture at T7 with moderate loss of vertebral body height and substantial epidural tumor with compression of the cord. There are several other smaller metastatic lesions throughout the thoracic marrow. No abnormal intradural enhancement. There is a left scapular metastatic lesion -11/10/22 - CT chest, abdomen, pelvis - Mild mediastinal and hilar adenopathy, Other lytic sites of disease include sacrum, L3 -11/11/22 - Thoracic decompression and removal of epidural tumor at T2 and T7 by lamiectomy, facetectomy, and foraminotomy; posterior thoracic fusion C7-T4 Lab work: Total CK 484; Sed rate 85 [facility] Free light chain 137.31 mg/dL [facility]/Lambda FLC Ratio 114.51 SPEP: Possible monoclonal gammopathy or pseudo-monoclonal gammopathy. An atypical electrophoretic band is identified which may represent a true M-spike as seen in multiple myeloma, other lymphoproliferative diseases, or benign monoclonal gammopathy. IgM 23 Cr 1.18 Urine immunofixation pending PAST MEDICAL HISTORY Past Medical History: Diagnosis Date Hypercholesteremia Hypertension Hypothyroidism Vitamin deficiency PAST SURGICAL HISTORY Past Surgical History: Procedure Laterality Date CHOLECYSTECTOMY 09/27/1989 FAMILY HISTORY Cancer-related family history is not on file. SOCIAL HISTORY Social History Socioeconomic History Marital status: Single Spouse name: Not on file Number of children: Not on file Years of education: Not on file Highest education level: Not on file Occupational History Not on file Tobacco Use Smoking status: Never Smokeless tobacco: Never Vaping Use Vaping Use: Never used Substance and Sexual Activity Alcohol use: Yes Alcohol/week: 2.0 standard drinks Types: 2 Cans of beer per week Drug use: Never Sexual activity: Not on file Other Topics Concern Not on file Social History Narrative Not on file ALLERGIES Allergies as of 11/10/2022 (No Known Allergies) MEDICATIONS Current Facility-Administered Medications Medication Dose Route Frequency Provider Last Rate Last Admin acetaminophen (TYLENOL) tablet 650 mg 650 mg oral q6h PRN Fahad Mccoy MD amLODIPine (NORVASC) tablet 10 mg 10 mg oral Daily Fahad Mccoy MD 10 mg at 11/12/22 0847 atorvastatin (LIPITOR) tablet 10 mg 10 mg oral Daily Fahad Mccoy MD 10 mg at 11/12/22 0848 ceFAZolin (ANCEF) 2 gram/20 mL IV syringe 2 g 2 g intravenous q8h JEFFERY Holden 2 g at 910 dexamethasone (DECADRON) injection 4 mg 4 mg intravenous q6h [facility] Renuka Addison MD 4 mg at 11/12/22 0639 levothyroxine (SYNTHROID, LEVOTHROID) tablet 88 mcg 88 mcg oral Daily Fahad Mccoy MD 88 mcg at 11/12/22 0848 metoprolol tartrate (LOPRESSOR) tablet 50 mg 50 mg oral BID Fahad Mccoy MD 50 mg at 11/12/22 0847 ondansetron ODT (ZOFRAN-ODT) disintegrating tablet 4 mg 4 mg oral q8h PRN Fahad Mccoy MD Or ondansetron (PF) (ZOFRAN) injection 4 mg 4 mg intravenous q8h PRN Fahad Mccoy MD oxyCODONE (ROXICODONE) immediate release tablet 5 mg 5 mg oral q4h PRN Natalie Villa MS 5 mg at 11/12/22 0848 pantoprazole (PROTONIX) EC tablet 40 mg 40 mg oral q AM AC Fahad Mccoy MD 40 mg at 11/12/22 0639 promethazine (PHENERGAN) tablet 25 mg 25 mg oral q6h PRN JEFFERY Holden Or promethazine (PHENERGAN) suppository 25 mg 25 mg rectal q12h PRN Natalie JEFFERY Villa ropivacaine (NAROPIN) 0.5 % 246.25 mg, EPINEPHrine (ADRENALIN) 1 mg/mL 0.5 mg, ketorolac (TORADOL) 30 mg, cloNIDine (DURACLON) 80 mcg in sodium chloride 0.9 % 100 mL injection irrigation Once Ish Ortiz Jr., MD senna (SENOKOT) tablet 17.2 mg 2 tablet oral Nightly PRN JEFFERY Bernardo senna (SENOKOT) tablet 17.2 mg 2 tablet oral Nightly JEFFERY Holden 17.2 mg at 11/11/222104 sodium chloride 0.9 % flush 10 mL 10 mL intravenous BID JEFFERY Bernardo 10 mL at 11/12/22 0920 And sodium chloride 0.9 % flush 10 mL 10 mL intravenous PRN JEFFERY Bernardo sodium chloride 0.9 % flush 10 mL 10 mL intravenous BID Fahad Mccoy MD 10 mL at 11/12/22 0911 And sodium chloride 0.9 % flush 10 mL 10 mL intravenous PRN Fahad Mccoy MD sodium chloride 0.9 % infusion 125 mL/hr intravenous Continuous Fahad Mccoy MD 125 mL/hr at 11/12/22 0644 125 mL/hr at 11/12/22 0644 vancomycin (VANCOCIN) 1 g in sodium chloride 0.9 % 1,000 mL OR irrigation irrigation Once Ish Tao Jr., MD REVIEW OF SYSTEMS Review of Systems Neurological: Feels as though having some improvement noted post-surgery All other systems reviewed and are negative. PHYSICAL EXAMINATION BP 137/82 Pulse 83 Temp 36.8 C (98.2 F) (Oral) Resp 14 Ht 1.651 m (65) Wt 80.7 kg (178 lb) BMI 29.62 kg/m No data recorded Physical Exam Vitals reviewed. HENT: Head: Normocephalic. Pulmonary: Effort: Pulmonary effort is normal. Neurological: Mental Status: He is alert and oriented to person, place, and time. Motor: Weakness present. Psychiatric: Mood and Affect: Mood normal. Behavior: Behavior normal. Thought Content: Thought content normal. Judgment: Judgment normal. DATA ANALYSIS I have personally reviewed the imaging in PACS, pathology and any additional reports as described above. * Renuka Addison MD - 11/10/2022 5:02 PM EST Hematology Oncology Consult: Reason for referral: Patient seen regarding cord compression HPI: Patient is a 67-year-old gentleman who has been experiencing some paresthesias and back pain for some number of months he has been evaluated with negative valuation up till now. This morning he noted that he could not move his legs and was brought to the emergency room where he was found to have lower extremity paralysis. With MRI showing compression fractures and cord compression at T2 and T7. He does have normal strength and movement in his arms. Patient with no history of cigarette smoking. Past medical history: Hypercholesterolemia. Hypertension. Hypothyroidism. Past surgical history: Cholecystectomy. Medications: The outpatient and inpatient medication list is contained within the patient's medicalrecord, and was reviewed. Allergies:These are listed in the electronic medical record and were reviewed. Transfusions: Social history: Patient is single. Non-smoker he works for the [employer]. Review of systems: Upper back pain along with some paresthesias and now marked weakness in his lower extremities Physical exam: Vital signs: The vital signs are contained within the electronic medical record, and were reviewed. General: Patient is alert lying in bed Skin: Unremarkable EENT: Unremarkable Lymphatics: No palpable adenopathy Breast no chest wall masses: Pulmonary: Lungs are clear Cardiovascular: No murmur S3 or S4 Abdomen: Soft and nontender : Deferred he does have a Vanegas catheter in place Extremities: No edema Neurologic: Patient not able to move lower extremities Data: Laboratory: Imaging: MRI of the thoracic spine shows compression fracture at T2 and T7 with cord compression. CT scan of the chest does show some mediastinal adenopathy which may or may not be of any significance. Abdomen CT is unremarkable Pathology: Assessment: Cord compression most likely related to malignancy but no obvious primary Recommendations: Discussed with neurosurgery with plans for surgery tomorrow. I did start the patient on dexamethasone * Rich Castillo NP - 11/10/2022 11:54 AM ESTAssociated Order(s): IP CONSULT TO NEUROSURGERY Neurosurgery Initial Consultation Note Patient: Armand Barron Room: [facility] Age: 67 y.o. Attending: Rico Bhat MD Date of Service: 11/10/22 Admit: 11/10/2022 PCP: Salena Flores, TIP [id number] Patient is on the surgery schedule for 11/11/22 at 1300. Assessment/Plan Bilateral lower extremity paralysis (acute) Tumor noted at T2 T7 -Bladder scan 870 --Recommend Vanegas placement -Imaging --MRI C T L spine Osseous mets with pathologic comp fx cord compression due to epidural tumor at T2and T7 --CT chest abdomen pelvis pending -Pain management per Medicine -Oncology consult -ok for a diet now -NPO after MN for potential procedure 11/11 -No anticoagulant antiplatelet NSAIDs until okayed by neurosurgery Other medical issues per medicine -Request a medical clearance note by medicine Disposition -Final Neurosurgical plan pending CT scans /Mets workup -Prepping patient for a potential Neurosurgical procedure 11/11 -Pending clinical course Rich Castillo APRN 60 minutes were spent reviewing patient's chart, labs, consulting notes, imaging, speaking with consulting providers and physical assessment of patient. Rounded on patient with Dr. Tao, discussed MRI findings. Discussed potential need for neurosurgical intervention but that we had more testing to complete before final plan is made. Spoke with Dr. Addison Oncology made him aware of patient's situation. Chief complaint Chief Complaint Patient presents with Extremity Weakness HPI Armand Barron is a 67-year-old male that denies any previous back issues/back pain, neurosurgical issues. Patient reports that last week he began to have tingling from his waist line down to his feet the left was worse than the right. Patient denies any neck or back pain at this time. He saw his PCPon , 11/05/2022 for constipation. At this time patient was walking without any difficulty whatsoever. Then on 11/09 patient reports his left leg was feeling rubbery but was having no issues with walking. He reports left shoulder pain which was a 1/10 on the pain scale very mild. Patient stated he did have a fall on 11/09 when he was carrying his laundry. Patient states he fell forward onto h is hands and knees. Patient denies hitting his back neck or head at this time denies any loss of consciousness. Patient stated that this morning at 0230 he got up to use the restroom he was able to walk reported bilateral lower extremity tingling and his legs felt rubbery. Reports at 0430 he woke up he could not move his right leg but was unable to move his left leg and could not stand. Patient crawled to get his cell phone. Patient denies any urinary or bowel incontinence and reports being unable to void since yesterday evening. Patient endorses he was hoping the weakness would resolve but this morning when it did not he called 911 about 9:30 AM. Patient presented to [facility] emergency department and neurosurgery was consulted based upon presenting symptoms. Objective Vitals: 11/10/22 1130 BP: (!) 146/93 Pulse: (!) 111 Resp: 15 Temp: SpO2: 100% General: Resting quietly in bed. Calm and cooperative. Neurological: Alert and oriented x4. Face symmetrical sensation intact. Speech clear, fluent and appropriate. EOM intact. No double vision or blurred vision noted. shoulder shrug 5/5 Bilateral upper extremities: deltoid flexion/extension 5/5; tricep flexion/extension 5/5 ; bicep flexion/extension 5/5; finger adduction 5/5; finger abduction 5/5. Grasps 5/5. No arm drift noted. Light touch sensation intact. Positive Dwaine bilaterally, ulnar and brachial radialis reflex 4/4 Bilateral lower extremities: Hip flexion/extension/adduction/abduction 0/5; knee flexion/extension 0/5; plantar flexion 0/5; dorsiflexion 0/5; great toe extension 0/5. drift noted. Sensation decreased and absent in left foot. Denies Saddle sensation reports he can feel his penis and surrounding areas. No clonus noted bilaterally. Neg straight leg test bilat No rectal tone noted on assessment Cardiovascular: No edema noted Pulmonary: Lungs Respirations full, regular and easy. No cough noted. No distress noted GI: Abdomen soft, non-tender and non-distended. : Unable to void bladder scan 870 mL noted Skin: warm, dry and intact. No rashes or lesions noted. ROS Review of Systems Constitutional: Negative for activity change, chills and fever. HENT: Negative for trouble swallowing. Eyes: Negative for photophobia and visual disturbance. Respiratory: Negative for cough and shortness of breath. Cardiovascular: Negative for chest pain and leg swelling. Gastrointestinal: Positive for constipation. Negative for abdominal pain, diarrhea, nausea and vomiting. Endocrine: Negative for polydipsia and polyuria. Genitourinary: Negative for difficulty urinating, dysuria and frequency. Musculoskeletal: Positive for back pain (left shoulder region) and gait problem. Negative for neck pain and neck stiffness. Skin: Negative for color change and wound. Neurological: Positive for tremors (right hand), weakness and numbness (left foot and tingling bilat legs). Negative for dizziness, seizures, syncope, facial asymmetry, speech difficulty, light-headedness and headaches. Hematological: Does not bruise/bleed easily. Psychiatric/Behavioral: Negative for confusion and sleep disturbance. The patient is not nervous/anxious. Past Medical History Past Medical History: Diagnosis Date Hypercholesteremia Hypertension Hypothyroidism Vitamin deficiency Past Surgical History Past Surgical History: Procedure Laterality Date CHOLECYSTECTOMY 09/27/1989 Social History Social History Socioeconomic History Marital status: Single Spouse name: Not on file Number of children: Not on file Years of education: Not on file Highest education level: Not on file Occupational History Not on file Tobacco Use Smoking status: Never Smokeless tobacco: Never Vaping Use Vaping Use: Never used Substance and Sexual Activity Alcohol use: Yes Alcohol/week: 2.0 standard drinks Types: 2 Cans of beer per week Drug use: Never Sexual activity: Not on file Other Topics Concern Not on file Social History Narrative Not on file Family History Family History Problem Relation Name Age of Onset Other (hypertensive disorder) Mother Other (malignant lymphoma) Mother Other (hypertensive disorder) Father Other (hypertensive disorder) Brother Medications Allergies: No Known Allergies Home Medications: Current Outpatient Medications Medication Instructions amLODIPine (NORVASC) 10 mg tablet TAKE 1 TABLET BY MOUTH EVERY DAY atorvastatin (LIPITOR) 10 mg tablet TAKE 1 TABLET BY MOUTH EVERY DAY cholecalciferol (VITAMIN D-3) 50,000 Units, oral, Weekly ibuprofen (ADVIL,MOTRIN) 600 mg, oral, Every 6 hours PRN levothyroxine (SYNTHROID, LEVOTHROID) 88 mcg, oral, Daily metoprolol tartrate (LOPRESSOR) 50 mg, oral, 2 times daily omeprazole (PriLOSEC) [address] capsule TAKE 1 CAPSULE BY MOUTH 1 TIME EACH DAY. DO NOT CRUSH OR CHEW. Current Medications: No current facility-administered medications for this encounter. Current Outpatient Medications: amLODIPine (NORVASC) 10 mg tablet, TAKE 1 TABLET BY MOUTH EVERY DAY, Disp: 90 tablet, Rfl: 3 atorvastatin (LIPITOR) 10 mg tablet, TAKE 1 TABLET BY MOUTH EVERY DAY, Disp: 90 tablet, Rfl: 3 cholecalciferol (VITAMIN D-3) 1,250 mcg (50,000 unit) capsule, Take 1 capsule (50,000 Units total) by mouth 1 (one) time per week., Disp: 12 capsule, Rfl: 2 ibuprofen (ADVIL,MOTRIN) 600 mg tablet, Take 1 tablet (600 mg total) by mouth every 6 (six) hours if needed for mild pain (pain)., Disp: 60 tablet, Rfl: 0 levothyroxine (SYNTHROID, LEVOTHROID) 88 mcg tablet, Take 1 tablet (88 mcg total) by mouth 1 (one) time each day., Disp: 90 each, Rfl: 3 metoprolol tartrate (LOPRESSOR) 50 mg tablet, Take 1 tablet (50 mg total) by mouth 2 (two) times a day., Disp: 60 each, Rfl: 2 omeprazole (PriLOSEC) [address] capsule, TAKE 1 CAPSULE BY MOUTH 1 TIME EACH DAY. DO NOT CRUSH OR CHEW., Disp: 90 capsule, Rfl: 1 Radiology Results for orders placed during the hospital encounter of 05/07/22 XR Thoracic Spine 2 Views Narrative EXAM: XR CERVICAL SPINE 4-5 VIEWS, XR THORACIC SPINE 2 VIEWS. DATE OF EXAM: 05/07/2022 12:33 PM. HISTORY: upper back pain. Upper mid back pain for 2 weeks. COMPARISON: Two-view chest x-ray dated 02/23/2017. FINDINGS: Cervical spine: Normal alignment. Vertebral body heights are maintained. Multilevel marginal osteophyte formation. Intervertebral disc and loss at C4-C5 and C5-C6. Left neural foramen are not optimally in plane on the oblique view. Uncovertebral joint hypertrophy with suggestion of some right bony neural foraminalnarrowing at C5-C6 and C6-C7. Prevertebral soft tissues unremarkable. Thoracic spine: Normal AP alignment. Vertebral body heights are maintained. Mild multilevel endplate spurring. Minimal intervertebral disc and loss the midthoracic spine. Overlying soft tissues are unremarkable. Impression Cervical spine: No acute bony abnormality. Mild multilevel degenerative changes of the cervical spine. Left neural foramen are not optimally in plane on the oblique view. There is suggestion of some right bony neural foraminal narrowing at C5-C6 and C6-C7. Thoracic spine: No acute bony abnormality. Mild degenerative changes of the thoracic spine. -------- FINAL REPORT -------- Dictated By: Kartik Woodward Dictated Date: 05/07/2022 15:10 Assigned Physician: Kartik Woodward Reviewed and Electronically Signed By: Kartik Woodward Signed Date: 05/07/2022 15:12 Workstation ID: [id number] Transcribed By: Self Edit Transcribed Date: 05/07/2022 15:10 Results for orders placed during the hospital encounter of 05/07/22 XR Thoracic Spine 2 Views Narrative EXAM: XR CERVICAL SPINE 4-5 VIEWS, XR THORACIC SPINE 2 VIEWS. DATE OF EXAM: 05/07/2022 12:33 PM. HISTORY: upper back pain. Upper mid back pain for 2 weeks. COMPARISON: Two-view chest x-ray dated 02/23/2017. FINDINGS: Cervical spine: Normal alignment. Vertebral body heights are maintained. Multilevel marginal osteophyte formation. Intervertebral disc and loss at C4-C5 and C5-C6. Left neural foramen are not optimally in plane on the oblique view. Uncovertebral joint hypertrophy with suggestion of some right bony neural foraminalnarrowing at C5-C6 and C6-C7. Prevertebral soft tissues unremarkable. Thoracic spine: Normal AP alignment. Vertebral body heights are maintained. Mild multilevel endplate spurring. Minimal intervertebral disc and loss the midthoracic spine. Overlying soft tissues are unremarkable. Impression Cervical spine: No acute bony abnormality. Mild multilevel degenerative changes of the cervical spine. Left neural foramen are not optimally in plane on the oblique view. There is suggestion of some right bony neural foraminal narrowing at C5-C6 and C6-C7. Thoracic spine: No acute bony abnormality. Mild degenerative changes of the thoracic spine. -------- FINAL REPORT -------- Dictated By: Kartik Woodward Dictated Date: 05/07/2022 15:10 Assigned Physician: Kartik Woodward Reviewed and Electronically Signed By: Kartik Woodward Signed Date: 05/07/2022 15:12 Workstation ID: [id number] Transcribed By: Self Edit Transcribed Date: 05/07/2022 15:10 Labs Lab Results Component Value Date WBC 9.8 11/10/2022 WBC 100 11/10/2022 RBC 3.99 (L) 11/10/2022 HGB 12.4 (L) 11/10/2022 HCT 36.4 (L) 11/10/2022 PLT 198 11/10/2022 No results found for: CSFCX, URINECX, CULTURE, BLOODCX Associated attestation - Ish Tao Jr., MD - 11/11/2022 6:00 PM EST I am the neurosurgeon of record. The patient's chief complaint, imaging and all relevant diagnosticdata was reviewed in great detail, treatment plan was formulated with the advanced practice provider. I agree with the advanced practice provider's assessment and plan. I was at the bedside at 1400 on 11/10/2022 and personally evaluated the patient. Mr. Barron presented with progressive loss of motor/sensory function in both lower extremities over 7-10 days. 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 After a long discussion with Mr. Barron, given that this was a previously unknown diagnosis, we agreed to first complete a full workup to determine the systemic extent of disease before proceeding witha highly morbid procedure with a difficult recovery. Once the workup was complete, we discussed a decompression at both T2, and T7, with an instrumented fusion from C7-T4 to prevent further kyphosis. I counseled Mr. Barron about the risks, benefits, and alternatives to surgery prior to proceeding. Given his deficits, as well as the multiple sites of severe spinal cord compression, I do not expect arapid return of function. I expect that he will have a significant rehab stay after surgery, and hewill likely need chemotherapy and radiation treatment once we obtain tissue for a pathologic diagnosis. He understands the risks of surgery, as well as the expected recovery. He would like to proceed. documented in this encounterBrooke Glen Behavioral [id number] History of Present illness Narrative* Michelle Eng PT - 11/19/2022 8:14 AM EST Therapist spoke to pt regarding his OPPT eval scheduled for 11-26-22 for upper back & L shld pain. This referral was ordered Oct 09 by Salena Flores NP. It appears since this time he has had spinal surgery & he is currently at [facility] awaiting transfer to [facility] for IP rehab due to significant change in medical status since the original PT referral was written. This referral will be closed & eval cancelled due to pt undergoing other medical treatments. Michelle Eng PT documented in this encounterTrinity [id number] Hospital Discharge instructions* Discharge Instructions* Julieta Lin, APERTURE MASK ETCHER - 11/16/2022 6:54 AM EST Home Care Instructions: Back Surgery Please follow these instructions when caring for yourself at home. Your first office visit will be approximately 2-6 weeks after surgery. If you have any questions or problems before your first follow-up office visit, please call the neurosurgery office at [phone]. Diet: Increase protein intake to promote wound healing. High fiber foods will help maintain normal bowel function while taking pain medications. Activities: If you were given a brace, wear it when you are out of bed for longer than 15 minutes. No bending, lifting or twisting. Do not lift anything heavier than 10 pounds (about the weight of a gallon of milk). Log roll when getting in and out of bed. Walking is encouraged to improve your strength and prevent blood clots. Short walks are fine but donot push yourself to the point of fatigue. Rest often--you will tire more easily after surgery. You may climb stairs but be careful not to fall. Avoid gravel, curbs, and uneven surfaces to avoid falling. Use walker or cane as directed by physical and occupational therapists. Avoid low back chairs. Do not sit more than 1-hour at a time. Do not drive until the doctor gives you permission. You may ride for short trips. Always wear seat belt. Sexual activity is permitted but stop if it causes pain in your back. If you have young children, grandchildren, or small pets, have them climb into your lap when you are sitting rather than picking them up. Do not perform back exercises until cleared by doctor. Pain Management Instructions: It is not uncommon to feel twinges of pain in your back. You will not be completely pain free immediately following surgery. Please take your pain medication and muscle relaxer as directed. Do not take non-steroidal inflammatory drugs (NSAIDs) like aspirin, ibuprofen (Advil, Motrin), naproxen (Aleve, Naprosyn), meloxicam (Mobic), or celecoxib (Celebrex) until cleared by your surgeon. Call your doctor if you have severe pain that does not go away or gets worse even after taking painmedications. Medication Information: Do not resume aspirin, Coumadin (warfarin), Xarelto (rivaroxaban), Eliquis (apixaban), Plavix (clopidogrel), or other blood thinning medications until cleared by your surgeon. Monitor your incision for swelling or increased drainage after you begin taking your blood thinner. A stool softener purchased [id number] may be helpful to prevent constipation while taking pain medications. Wound and Personal Care: Always wash your hands before caring for your incision. Remove dressing 2 days after your surgery and leave incision open to air. You may shower once your incision can be left open to air, allowing warm, soapy water to run over incision. Do not let water hit incision directly. Pat dry. Use a shower seat if you need to sit while showering. Do not apply creams, lotions, ointments, powders, or perfumed soap to incision. No hot tubs, tub baths, or swimming (pools or lakes) until cleared by your physician. You may gently remove Steri-strips as they begin to fall off. Remove if they have not fallen off 10days after surgery. Check incision daily for redness, drainage or separation of edges. Sutures/deborah will be removed approximately 14 days after surgery or as scheduled by your surgeon. Because smoking interferes with incision healing, do not smoke. Follow-up Care: If you do not have a follow-up appointment scheduled with your surgeon, please call the office at [phone] to schedule one. If you have sutures/deborah and do not have an appointment to have them removed within 14 days of surgery, please call the office at [phone] to schedule their removal. Return to Work or School: Call the office at [phone] if you need any school or work-related paperwork completed. NOTIFY PHYSICIAN / PROVIDER: If you have a fever. If you have difficulty with your bowel or bladder. If your wound is swollen, red, draining pus or the edges are . If you have new weakness, numbness, or new pain in your back or legs. If you have pain, redness or swelling in your calf as this could be a sign of a blood clot. If you have shortness of breath or chest pain as this could be a sign of a blood clot in your lungs. If you need immediate attention and cannot reach your physician/provider, go directly to the emergency room or call 911. documented in this encounterBrooke Glen Behavioral [id number] Consult note* Oc Diaz, RD - 11/12/2022 1:23 PM EST 11/12/2022 @ 1:19 PM EST Reason for RD Intervention: Reason for Assessment Assessment Type: Protocol/Policy Reason for Assessment: High MST Score Nutrition Diagnosis: Diagnosis: No Acute Nutrition Dx Nutrition Recommendations/Plan of Care: Encourage po intakes, 75% or better Follow Up: Nutrition Priority Level Priority Level: Low Follow Up Date: 11/23/22 Nutritional Discharge Recommendations: History of presenting illness: Patient is a 67 y.o. male with a history of Past Medical History: Diagnosis Date Cord compression (CMS/HCC) 11/10/2022 T2-T7 cord compression Hypercholesteremia Hypertension Hypothyroidism Vitamin deficiency Past Surgical History: Procedure Laterality Date CHOLECYSTECTOMY 09/27/1989 SPINAL CORD DECOMPRESSION 11/11/2022 Fusion Decompression T8-T9, T2 tumor removal, T2-T7 spinal cord compression admitted 11/10/2022 with Weakness. Subjective Assessment: Seeing pt for MST score. No nausea, vomiting. Encourage po intakes. Reviewed dietary guidelines forgeneral healthy diet. Reviewed supplementation including vitamin d and general MVI options. Answered all pt's questions to satisfaction. Current Diet and Supplements: Dietary Orders (From admission, onward) Start Ordered 11/11/22 1757 Adult diet [facility]; General; Regular; Auto-Select Meals Diet effective now Comments: Advance as tolerated Question Answer Comment Location [facility] Diet Type (req) General General Diet Regular Is the patient able to participate in meal ordering? Auto-Select Meals 11/11/22 0387 Food/Nutrition-Current Status: Food/Nutrition Status Intake Type: P.O. Current Diet Status: Appropriate Current Supplement Status: Appropriate Appetite: Good Intake Amount (%): 75-100% Oral Health: WNL Anthropometrics: Weight History: Wt Readings from Last 10 Encounters: 11/10/22 80.7 kg (178 lb) 11/05/22 81 kg (178 lb 9.6 oz) 10/09/22 83.9 kg (185 lb) 08/21/22 81.2 kg (179 lb) 07/30/22 84.4 kg (186 lb) 06/15/22 82.8 kg (182 lb 9.6 oz) 05/07/22 82.4 kg (181 lb 9.6 oz) 04/29/22 82.7 kg (182 lb 6.4 oz) 04/07/22 83.8 kg (184 lb 12.8 oz) 02/16/22 83.7 kg (184 lb 9.6 oz) Nutrition-Related Lab Values: Results from last 7 days Lab Units 11/11/22 1821 11/11/22 0316 SODIUM mmol/L -- 137 POTASSIUM mmol/L -- 4.0 CHLORIDE mmol/L -- 104 CO2 mmol/L -- 24 BUN mg/dL -- 29* CREATININE mg/dL -- 1.18 EGFR mL/min/1.73m2 -- 68 CALCIUM mg/dL -- 9.7 BILIRUBIN TOTAL mg/dL -- 0.6 ALK PHOS unit/L -- 51 ALT unit/L -- 18 AST unit/L -- 25 POCT GLUCOSE mg/dL 151* -- GLUCOSE mg/dL -- 149* WBC AUTO K/mcL -- 6.9 Pertinent nutrition-related medications reviewed on 11/12/2022. Nutrition Focused Physical Findings: Nutrition-Focused Physical Findings Overall Appearance: well nourished Oc Diaz RD, LD [facility] Clinical Dietitian Primary Floors: 3N, 3S, 2East Office: [phone] [facility] [id number] Consult note* Emanuel Guerra MD - 11/12/2022 10:35 AM ESTAssociated Order(s): IP CONSULT TO RADIATION ONCOLOGY Images from the original note were not included. RADIATION ONCOLOGY CONSULTATION Patient Name (MRN): Armand Barron ([id number]) Radiation Oncologist: Emanuel Guerra MD : 1955 Date of Service: 11/10/2022 Referring Physician: Ish Tao Jr., MD ASSESSMENT This is a 67 y.o. male who presented with thoracic spine pain and bilateral lower extremity weakness/numbness found to have multiple lytic lesions of the bone with significant disease at T2 and T7 with epidural tumor causing spinal cord compression. He underwent decompressive surgery yesterday. Pathology is pending. Findings appear to be consistent with myeloma. PLAN -Await pathology -Will require likely post-operative radiotherapy to the thoracic spine and potentially to other symptomatic sites. Would need adequate healing before proceeding with radiation treatment. -Will arrange for outpatient appointment in 2-3 weeks. Thank you for allowing us to participate in the multidisciplinary care of this patient. HISTORY OF PRESENT ILLNESS Armand Barron is a 67 y.o. male with recent finding of multiple lytic lesions in the bone including pathologic fractures of T2 and T7 with epidural tumor causing spinal cord compression. His historyis as follows: -Presented to family medicine on 11/05/22 with tingling in his legs and feet; bilateral -11/10/22- Presented to ED with worsening symptoms; now lower extremity weakness and numbness; L>R; also pain in the upper thoracic spine radiating to the scapular region -11/10/22 MRI cervical, thoracic and lumbar spine: There is a pathologic vertebral plana deformity of the T2 vertebral body. There is compression of the cord due to anterior and left dorsal epidural tumor. There is a pathologic compression fracture at T7 with moderate loss of vertebral body height and substantial epidural tumor with compression of the cord. There are several other smaller metastatic lesions throughout the thoracic marrow. No abnormal intradural enhancement. There is a left scapular metastatic lesion -11/10/22 - CT chest, abdomen, pelvis - Mild mediastinal and hilar adenopathy, Other lytic sites of disease include sacrum, L3 -11/11/22 - Thoracic decompression and removal of epidural tumor at T2 and T7 by lamiectomy, facetectomy, and foraminotomy; posterior thoracic fusion C7-T4 Lab work: Total CK 484; Sed rate 85 [facility] Free light chain 137.31 mg/dL [facility]/Lambda FLC Ratio 114.51 SPEP: Possible monoclonal gammopathy or pseudo-monoclonal gammopathy. An atypical electrophoretic band is identified which may represent a true M-spike as seen in multiple myeloma, other lymphoproliferative diseases, or benign monoclonal gammopathy. IgM 23 Cr 1.18 Urine immunofixation pending PAST MEDICAL HISTORY Past Medical History: Diagnosis Date Hypercholesteremia Hypertension Hypothyroidism Vitamin deficiency PAST SURGICAL HISTORY Past Surgical History: Procedure Laterality Date CHOLECYSTECTOMY 09/27/1989 FAMILY HISTORY Cancer-related family history is not on file. SOCIAL HISTORY Social History Socioeconomic History Marital status: Single Spouse name: Not on file Number of children: Not on file Years of education: Not on file Highest education level: Not on file Occupational History Not on file Tobacco Use Smoking status: Never Smokeless tobacco: Never Vaping Use Vaping Use: Never used Substance and Sexual Activity Alcohol use: Yes Alcohol/week: 2.0 standard drinks Types: 2 Cans of beer per week Drug use: Never Sexual activity: Not on file Other Topics Concern Not on file Social History Narrative Not on file ALLERGIES Allergies as of 11/10/2022 (No Known Allergies) MEDICATIONS Current Facility-Administered Medications Medication Dose Route Frequency Provider Last Rate Last Admin acetaminophen (TYLENOL) tablet 650 mg 650 mg oral q6h PRN Fahad Mccoy MD amLODIPine (NORVASC) tablet 10 mg 10 mg oral Daily Fahad Mccoy MD 10 mg at 11/12/22 0847 atorvastatin (LIPITOR) tablet 10 mg 10 mg oral Daily Fahad Mccoy MD 10 mg at 11/12/22 0848 ceFAZolin (ANCEF) 2 gram/20 mL IV syringe 2 g 2 g intravenous q8h JEFFERY Holden 2 g at 910 dexamethasone (DECADRON) injection 4 mg 4 mg intravenous q6h [facility] Renuka Addison MD 4 mg at 11/12/22 0639 levothyroxine (SYNTHROID, LEVOTHROID) tablet 88 mcg 88 mcg oral Daily Fahad Mccoy MD 88 mcg at 11/12/22 0848 metoprolol tartrate (LOPRESSOR) tablet 50 mg 50 mg oral BID Fahad Mccoy MD 50 mg at 11/12/22 0847 ondansetron ODT (ZOFRAN-ODT) disintegrating tablet 4 mg 4 mg oral q8h PRN Fahad Mccoy MD Or ondansetron (PF) (ZOFRAN) injection 4 mg 4 mg intravenous q8h PRN Fahad Mccoy MD oxyCODONE (ROXICODONE) immediate release tablet 5 mg 5 mg oral q4h PRN JEFFERY Holden 5 mg at 11/12/22 0848 pantoprazole (PROTONIX) EC tablet 40 mg 40 mg oral q AM AC Fahad Mccoy MD 40 mg at 11/12/22 0639 promethazine (PHENERGAN) tablet 25 mg 25 mg oral q6h PRN JEFFERY Holden Or promethazine (PHENERGAN) suppository 25 mg 25 mg rectal q12h PRN JEFFERY Holden ropivacaine (NAROPIN) 0.5 % 246.25 mg, EPINEPHrine (ADRENALIN) 1 mg/mL 0.5 mg, ketorolac (TORADOL) 30 mg, cloNIDine (DURACLON) 80 mcg in sodium chloride 0.9 % 100 mL injection irrigation Once Ish Ortiz Jr., MD senna (SENOKOT) tablet 17.2 mg 2 tablet oral Nightly PRN JEFFERY Bernardo senna (SENOKOT) tablet 17.2 mg 2 tablet oral Nightly JEFFERY Holden 17.2 mg at 11/11/22 2105 sodium chloride 0.9 % flush 10 mL 10 mL intravenous BID JEFFERY Bernardo 10 mL at 11/12/22 0920 And sodium chloride 0.9 % flush 10 mL 10 mL intravenous PRN JEFFERY Bernardo sodium chloride 0.9 % flush 10 mL 10 mL intravenous BID Fahad Mccoy MD 10 mL at 11/12/22 0911 And sodium chloride 0.9 % flush 10 mL 10 mL intravenous PRN Fahad Mccoy MD sodium chloride 0.9 % infusion 125 mL/hr intravenous Continuous Fahad Mccoy MD 125 mL/hr at 11/12/22 0644 125 mL/hr at 11/12/22 0644 vancomycin (VANCOCIN) 1 g in sodium chloride 0.9 % 1,000 mL OR irrigation irrigation Once Ish Tao Jr., MD REVIEW OF SYSTEMS Review of Systems Neurological: Feels as though having some improvement noted post-surgery All other systems reviewed and are negative. PHYSICAL EXAMINATION BP 137/82 Pulse 83 Temp 36.8 C (98.2 F) (Oral) Resp 14 Ht 1.651 m (65) Wt 80.7 kg (178 lb) BMI 29.62 kg/m No data recorded Physical Exam Vitals reviewed. HENT: Head: Normocephalic. Pulmonary: Effort: Pulmonary effort is normal. Neurological: Mental Status: He is alert and oriented to person, place, and time. Motor: Weakness present. Psychiatric: Mood and Affect: Mood normal. Behavior: Behavior normal. Thought Content: Thought content normal. Judgment: Judgment normal. DATA ANALYSIS I have personally reviewed the imaging in PACS, pathology and any additional reports as described above. [facility] [id number] Procedure note* Ish Tao Jr., MD - 11/11/2022 6:01 PM EST Neurosurgery Operative Report Patient name: Armand Barron Date of surgery: 11/11/22 Preoperative diagnosis: Thoracic Compression Fracture (T2 and T7) Thoracic Stenosis (T2 and T7 withsevere spinal cord compression) Postoperative diagnosis: Same Procedure: 1. Thoracic decompression and removal of epidural tumor at T2 and T7 by laminectomy, facetectomy, and foraminotomy 2. Posterior thoracic fusion C7-T4 by pedicle screw fixation Surgeon: Ish Tao M.D. business assistant: Dipika Addison PA-C, Natalie Villa PA-C Anesthesia: General, endotracheal EBL: 600 mL Operative complications: none Operative implants: A-Isaac screw system, Alpha graft Fiber Strip x 2 Drains: 10 mm J-P Operative indications: Armand Barron is a 67 y.o. male who presented to the Emergency Department with progressive loss of motor and sensory function in his legs over the preceding 7-10 days. Imagingstudies revealed pathologic compression fractures from suspected spinal metastases at T2 and T7 with severe spinal cord compression and a kyphotic deformity at T2. Given that this was a new diagnosis, a long discussion was held with Mr. Barron, and he agreed with a full metastatic workup to determinethe extent of disease prior to proceeding with surgery. Risks, benefits and alternatives were discussed, and once the metastatic workup was completed, he agreed to undergo a T2 and T7 decompression for epidural tumor, as well as a C7-T4 posterior instrumented stabilization/fusion. Operative note: After being properly identified, the patient was brought into the operating suite at [facility]. X-ray guidance was used to approximate the incision and the skin was marked, prepped, and draped in the typical fashion. Incision was then made using a #10 blade, and Bovie monopolar cautery was used to dissect down to the thoracic lamina. Once lamina was exposed, the spinous process clamp was placed onto the T4 level, and the O-arm was brought into the field and intraoperative spins were taken to register the anatomy and navigate the remainder of the procedure. After the navigation images were obtained, the T2 laminectomy and medial facetectomies were completed using a combination of 3 mm matchstick marcin, Leksell rongeur, and 2 and 3 mm Kerrisen rongeurs. The underlying ligamentum flavum was removed using a 2 mm Kerrisen rongeur. A large amount of epidural tumor was encountered and resected to the extent that resection was safely possible. After the T2 level was decompressed, navigated instruments were used to cannulate the pedicles bilaterally at C7, T1, T3, and T4. At this point, the intact laminae, lateral facets, and transverse processes were decorticated using the matchstick marcin. Morselized allograft was placed over the decorticated bone for arthrodesis. The lateral rods were placed into the pedicle screw heads, and fixed in place using set screws. Allthe hardware was tightened using a torque cmv driver. The inferior portion of the incision was extended to allow for the T7 decompression. The level was confirmed using navigation, and the laminectomy was performed using a combination of Leksell rongeur, 3mm matchstick marcin, and 2 and 3mm Kerrisen rongeurs. Once the spinal cord appeared well decompressed, the navigation array was removed from the field. At this point the wound was copiously irrigated with antibiotic irrigation, and a 10 mm J-P was placed in the epidural space. Closure was then completed in a layered fashion, using 0 Vicryl for the fascia, 2-0 Vicryl for the subcutaneous tissue, and deborah for the skin. The wound was dressed in the typical fashion, the patient was extubated in the OR, and transported to the PACU for further recovery. All counts were correct at the end of the procedure. Ish Tao Jr, MD [email or web address] Phone: [phone] Procedure note* Ish Tao Jr., MD - 11/11/2022 6:01 PM EST Neurosurgery Operative Report Patient name: Armand Barron Date of surgery: 11/11/22 Preoperative diagnosis: Thoracic Compression Fracture (T2 and T7) Thoracic Stenosis (T2 and T7 withsevere spinal cord compression) Postoperative diagnosis: Same Procedure: 1. Thoracic decompression and removal of epidural tumor at T2 and T7 by laminectomy, facetectomy, and foraminotomy 2. Posterior thoracic fusion C7-T4 by pedicle screw fixation Surgeon: Ish Tao M.D. business assistant: Dipika Addison PA-C, Natalie Villa PA-C Anesthesia: General, endotracheal EBL: 600 mL Operative complications: none Operative implants: A-Isaac screw system, Alpha graft Fiber Strip x 2 Drains: 10 mm J-P Operative indications: Armand Barron is a 67 y.o. male who presented to the Emergency Department with progressive loss of motor and sensory function in his legs over the preceding 7-10 days. Imagingstudies revealed pathologic compression fractures from suspected spinal metastases at T2 and T7 with severe spinal cord compression and a kyphotic deformity at T2. Given that this was a new diagnosis, a long discussion was held with Mr. Barron, and he agreed with a full metastatic workup to determinethe extent of disease prior to proceeding with surgery. Risks, benefits and alternatives were discussed, and once the metastatic workup was completed, he agreed to undergo a T2 and T7 decompression for epidural tumor, as well as a C7-T4 posterior instrumented stabilization/fusion. Operative note: After being properly identified, the patient was brought into the operating suite at [facility]. X-ray guidance was used to approximate the incision and the skin was marked, prepped, and draped in the typical fashion. Incision was then made using a #10 blade, and Bovie monopolar cautery was used to dissect down to the thoracic lamina. Once lamina was exposed, the spinous process clamp was placed onto the T4 level, and the O-arm was brought into the field and intraoperative spins were taken to register the anatomy and navigate the remainder of the procedure. After the navigation images were obtained, the T2 laminectomy and medial facetectomies were completed using a combination of 3 mm matchstick marcin, Leksell rongeur, and 2 and 3 mm Kerrisen rongeurs. The underlying ligamentum flavum was removed using a 2 mm Kerrisen rongeur. A large amount of epidural tumor was encountered and resected to the extent that resection was safely possible. After the T2 level was decompressed, navigated instruments were used to cannulate the pedicles bilaterally at C7, T1, T3, and T4. At this point, the intact laminae, lateral facets, and transverse processes were decorticated using the matchstick marcin. Morselized allograft was placed over the decorticated bone for arthrodesis. The lateral rods were placed into the pedicle screw heads, and fixed in place using set screws. Allthe hardware was tightened using a torque cmv driver. The inferior portion of the incision was extended to allow for the T7 decompression. The level was confirmed using navigation, and the laminectomy was performed using a combination of Leksell rongeur, 3mm matchstick marcin, and 2 and 3mm Kerrisen rongeurs. Once the spinal cord appeared well decompressed, the navigation array was removed from the field. At this point the wound was copiously irrigated with antibiotic irrigation, and a 10 mm J-P was placed in the epidural space. Closure was then completed in a layered fashion, using 0 Vicryl for the fascia, 2-0 Vicryl for the subcutaneous tissue, and deborah for the skin. The wound was dressed in the typical fashion, the patient was extubated in the OR, and transported to the PACU for further recovery. All counts were correct at the end of the procedure. Ish Tao Jr, MD documented in this encounterBrooke Glen Behavioral [id number] Consult note* Renuka Addison MD - 11/10/2022 5:02 PM EST Hematology Oncology Consult: Reason for referral: Patient seen regarding cord compression HPI: Patient is a 67-year-old gentleman who has been experiencing some paresthesias and back pain for some number of months he has been evaluated with negative valuation up till now. This morning he noted that he could not move his legs and was brought to the emergency room where he was found to have lower extremity paralysis. With MRI showing compression fractures and cord compression at T2 and T7. He does have normal strength and movement in his arms. Patient with no history of cigarette smoking. Past medical history: Hypercholesterolemia. Hypertension. Hypothyroidism. Past surgical history: Cholecystectomy. Medications: The outpatient and inpatient medication list is contained within the patient's medicalrecord, and was reviewed. Allergies:These are listed in the electronic medical record and were reviewed. Transfusions: Social history: Patient is single. Non-smoker he works for the [employer]. Review of systems: Upper back pain along with some paresthesias and now marked weakness in his lower extremities Physical exam: Vital signs: The vital signs are contained within the electronic medical record, and were reviewed. General: Patient is alert lying in bed Skin: Unremarkable EENT: Unremarkable Lymphatics: No palpable adenopathy Breast no chest wall masses: Pulmonary: Lungs are clear Cardiovascular: No murmur S3 or S4 Abdomen: Soft and nontender : Deferred he does have a Vanegas catheter in place Extremities: No edema Neurologic: Patient not able to move lower extremities Data: Laboratory: Imaging: MRI of the thoracic spine shows compression fracture at T2 and T7 with cord compression. CT scan of the chest does show some mediastinal adenopathy which may or may not be of any significance. Abdomen CT is unremarkable Pathology: Assessment: Cord compression most likely related to malignancy but no obvious primary Recommendations: Discussed with neurosurgery with plans for surgery tomorrow. I did start the patient on dexamethasone [facility] [id number] History and physical note* Merlyn Baugh RN - 11/10/2022 3:40 PM EST Chief Complaint: Armand Barron is a 67 y.o.male with past medical history of hypertension, hyperlipidemia, and hypothyroidism who presents from home with worsening bilateral lower extremity weaknessand numbness. HPI & ROS: Kaleb Barron is a 67 year old male who presents from home via EMS for progressive bilateral lower extremity weakness and numbness over the past 3 weeks. He notes that since last week he began having tingling from his belly button down. He also saw his PCP last week for complaints of constipation and at that time he was not having any difficulties with walking. He was prescribed miralax at the time, but has not had many bowel movements sine starting to take that. Last night on 11/09/2022 he mentions starting to feel numbness and tingling in both legs, but was still able to walk at this point. He notes he fell at home last night as well, but did not hit his head/neck or sustain any injuries. When he woke up at approximately 0430 this morning he could not move either of his legs, lost sensation from mid-abdomen down, and has been unable to urinate since last night. Review of Systems Constitutional: Negative for chills, fever and malaise/fatigue. HENT: Negative. Eyes: Negative for blurred vision, double vision and visual disturbance. Cardiovascular: Negative for chest pain, dyspnea on exertion, irregular heartbeat, palpitations andsyncope. Respiratory: Negative. Negative for cough, shortness of breath and wheezing. Skin: Negative. Musculoskeletal: Positive for muscle weakness. Gastrointestinal: Positive for constipation. Negative for abdominal pain, nausea and vomiting. Genitourinary: Unable to urinate Neurological: Positive for numbness, sensory change and weakness. Brief paralysis: complete paralysis of bilateral lower extremities. Psychiatric/Behavioral: Negative. Physical Exam Visit Vitals BP 116/82 Pulse 87 Temp 36.6 C (97.8 F) (Axillary) Resp 18 Ht 1.651 m (65) Wt 80.7 kg (178 lb) SpO2 96% BMI 29.62 kg/m Smoking Status Never BSA 1.88 m GENERAL: Male, NAD CV: normal rate, regular rhythm, S1/S2 without murmur, rub, click, gallop, S3/S4, or JVD RESP: Chest is symmetrical. Lungs clear to auscultation bilaterally without wheezes, rales or rhonchi GI: Abdomen soft, non-tender NEURO: AO x 4. bilateral lower extremity paralysis and loss of senstation Assessment & Plan Osseous Metastatic Disease Acute bilateral lower extremity paralysis Cord Compression - Progressive numbness and weakness of bilateral lower extremities - MRI T-spine, L-spine and C-spine showing osseous metastatic disease with pathologic compression fractures and cord compression due to epidural tumor at T2 and T7 - Neurosurgery consulted with plans for surgical intervention tomorrow - CT chest and abdomen/pelvis pending - Oncology consult for workup of metastatic disease - PT/OT once cleared by neurosurgery - Fall precautions SUSAN Acute Urinary Retention - Creat on admission 1.54, Baseline 1.08-1.2 - Bladder scan with [address] vanegas catheter - Start IV fluids Essential Hypertension - Continue amlodipine and metoprolol Hyperlipidemia - Statin. Continue Hypothyroidism - Continue levothyroxine GERD - Continue PPI [facility] [id number] History and physical note* Merlyn Baugh RN - 11/10/2022 3:40 PM EST Chief Complaint: Armand Barron is a 67 y.o.male with past medical history of hypertension, hyperlipidemia, and hypothyroidism who presents from home with worsening bilateral lower extremity weaknessand numbness. HPI & ROS: Kaleb Barron is a 67 year old male who presents from home via EMS for progressive bilateral lower extremity weakness and numbness over the past 3 weeks. He notes that since last week he began having tingling from his belly button down. He also saw his PCP last week for complaints of constipation and at that time he was not having any difficulties with walking. He was prescribed miralax at the time, but has not had many bowel movements sine starting to take that. Last night on 11/09/2022 he mentions starting to feel numbness and tingling in both legs, but was still able to walk at this point. He notes he fell at home last night as well, but did not hit his head/neck or sustain any injuries. When he woke up at approximately 0430 this morning he could not move either of his legs, lost sensation from mid-abdomen down, and has been unable to urinate since last night. Review of Systems Constitutional: Negative for chills, fever and malaise/fatigue. HENT: Negative. Eyes: Negative for blurred vision, double vision and visual disturbance. Cardiovascular: Negative for chest pain, dyspnea on exertion, irregular heartbeat, palpitations andsyncope. Respiratory: Negative. Negative for cough, shortness of breath and wheezing. Skin: Negative. Musculoskeletal: Positive for muscle weakness. Gastrointestinal: Positive for constipation. Negative for abdominal pain, nausea and vomiting. Genitourinary: Unable to urinate Neurological: Positive for numbness, sensory change and weakness. Brief paralysis: complete paralysis of bilateral lower extremities. Psychiatric/Behavioral: Negative. Physical Exam Visit Vitals BP 116/82 Pulse 87 Temp 36.6 C (97.8 F) (Axillary) Resp 18 Ht 1.651 m (65) Wt 80.7 kg (178 lb) SpO2 96% BMI 29.62 kg/m Smoking Status Never BSA 1.88 m GENERAL: Male, NAD CV: normal rate, regular rhythm, S1/S2 without murmur, rub, click, gallop, S3/S4, or JVD RESP: Chest is symmetrical. Lungs clear to auscultation bilaterally without wheezes, rales or rhonchi GI: Abdomen soft, non-tender NEURO: AO x 4. bilateral lower extremity paralysis and loss of senstation Assessment & Plan Osseous Metastatic Disease Acute bilateral lower extremity paralysis Cord Compression - Progressive numbness and weakness of bilateral lower extremities - MRI T-spine, L-spine and C-spine showing osseous metastatic disease with pathologic compression fractures and cord compression due to epidural tumor at T2 and T7 - Neurosurgery consulted with plans for surgical intervention tomorrow - CT chest and abdomen/pelvis pending - Oncology consult for workup of metastatic disease - PT/OT once cleared by neurosurgery - Fall precautions SUSAN Acute Urinary Retention - Creat on admission 1.54, Baseline 1.08-1.2 - Bladder scan with [address] vanegas catheter - Start IV fluids Essential Hypertension - Continue amlodipine and metoprolol Hyperlipidemia - Statin. Continue Hypothyroidism - Continue levothyroxine GERD - Continue PPI * Fahad Mccoy MD - 11/10/2022 3:36 PM EST Images from the original note were not included. Fahad Mccoy MD [facility] Hospitalists History and Physical Patient Name: Armand Barron : 1955 Admit Date: [id number] Physicians: Salena Flores NP (PCP) Perpetual Assessment: Armand Barron is a 67 y.o. male who presented from home on 11/10/2022 with pastmedical history of essential hypertension presented with complaints of bilateral lower extremity complete paralysis. Assessment and Plan Acute bilateral lower extremity paralysis Compression fractures, T2 and T7 Metastatic osseous disease Cord compression -Presented with bilateral lower extremity acute weakness not able to move them. -Imaging as noted below, shows T2 and T7 compression fractures, cord compression due to epidural tumor. -Admit for further evaluation, -Neurosurgery following, appreciate recommendations. -MRI of the C-spine, T-spine and L-spine already done. Apart from the findings noted above, has diffuse DDD. -Given nauseous mental status, neurosurgery added CT of the chest and CT of the abdomen with contrast. -For now supportive care with IV fluids, antiemetics and pain medications. -Also add Vanegas catheter. -Hold all AC/AP. -Neurosurgery planning possible OR tomorrow pending further testing. -We will eventually add PT/OT once we have neurosurgery plan. -Oncology consulted. Pre-Op Evaluation - The patient is being evaluated for a high risk surgery - The patient has no symptoms - The patient's functional capacity is >4 METS - The patient has the following pertinent Revised Cardiac Risk Index Indicators high risk surgery - Based on the above, the patient is at moderate risk to proceed to surgery - The patient may proceed to surgery, with comments/risks as noted above - Other recommendations: No further work-up is necessary given acuity of the situation. Patient at baseline prior to his bilateral lower extremity weakness is very ambulatory, with no prior history of CAD, CHF, CVA or COPD. Had incentive spirometer. Acute kidney injury -Baseline creatinine normal, creatinine on presentation 1.5. -Unfortunately already received contrast for MRI and CTs. I did try to reach out to ED RN but patient already getting CT of the abdomen pelvis. -We will add IV fluids and monitor. -Continue to avoid nephrotoxins. Essential hypertension -Blood pressure stable. -At home on metoprolol and Norvasc, Hypothyroidism -Synthroid Hyperlipidemia -Statin GERD -PPI Constipation -Likely due to cord compression. -Plan as above. Medication Reconciliation: Reviewed DVT Prophylaxis: SCD/TEDS Code Status: Full resuscitation Expected Date of Discharge: TBD Medical/Social Complexity: Patient requires hospitalization due to bilateral lower extremity weakness, cord compression, osseous metastatic disease, compression fractures requiring neurosurgery evaluation, oncology evaluation possibly going to the OR. History Chief Complaint: Complete paralysis of bilateral lower extremities HPI and ROS: Armand Barron is a 67 y.o. male with past medical history of essential hypertension presented with complaints of bilateral lower extremity complete paralysis. On my evaluation patient is alert and oriented x3, saturating well on room air and looks comfortable. Patient notes that he wokeup this morning around 430 with complete paralysis of bilateral lower extremity with some tingling sensation. Patient tells me that from past 3 weeks he is having issues with constipation, was takinglike to use with no significant improvement. But was feeling slowly getting weaker with some intermittent tingling sensation. Patient apparently had a fall yesterday evening which he thinks is related to his weakness but this was a mechanical fall. Denies hitting his head at this time. So far work-up concerning for metastatic osseous disease with cord compression due to epidural tumor at T2 and T7. Patient denies any fevers, chills, nausea, vomiting, diarrhea, dysuria, chest pain or shortness of breath. Patient currently having issues urinating and with bowel movements. PMH/PSH/SH/FH: Past Medical History: Diagnosis Date Hypercholesteremia Hypertension Hypothyroidism Vitamin deficiency Past Surgical History: Procedure Laterality Date CHOLECYSTECTOMY 09/27/1989 Family History Problem Relation Name Age of Onset Other (hypertensive disorder) Mother Other (malignant lymphoma) Mother Malig Hypertension Mother Other (hypertensive disorder) Father Other (hypertensive disorder) Brother Social History Socioeconomic History Marital status: Single Spouse name: Not on file Number of children: Not on file Years of education: Not on file Highest education level: Not on file Occupational History Not on file Tobacco Use Smoking status: Never Smokeless tobacco: Never Vaping Use Vaping Use: Never used Substance and Sexual Activity Alcohol use: Yes Alcohol/week: 2.0 standard drinks Types: 2 Cans of beer per week Drug use: Never Sexual activity: Not on file Other Topics Concern Not on file Social History Narrative Not on file Allergy Information: I have reviewed the patient's allergies. Patient has no known allergies. Home Medications: Prior to Admission medications Medication Sig Start Date End Date Taking? Authorizing Provider amLODIPine (NORVASC) 10 mg tablet TAKE 1 TABLET BY MOUTH EVERY DAY 07/20/22 Salena Flores NP atorvastatin (LIPITOR) 10 mg tablet TAKE 1 TABLET BY MOUTH EVERY DAY 07/20/22 Salena Flores NP cholecalciferol (VITAMIN D-3) 1,250 mcg (50,000 unit) capsule Take 1 capsule (50,000 Units total) by mouth 1 (one) time per week. 10/09/22 04/07/23 Salena Flores NP ibuprofen (ADVIL,MOTRIN) 600 mg tablet Take 1 tablet (600 mg total) by mouth every 6 (six) hours ifneeded for mild pain (pain). 10/09/22 12/08/22 Salena Flores NP levothyroxine (SYNTHROID, LEVOTHROID) 88 mcg tablet Take 1 tablet (88 mcg total) by mouth 1 (one) time each day. 09/09/22 09/09/23 Salena Flores NP metoprolol tartrate (LOPRESSOR) 50 mg tablet Take 1 tablet (50 mg total) by mouth 2 (two) times a day. 11/05/22 05/04/23 Salena Flores NP omeprazole (PriLOSEC) [address] capsule TAKE 1 CAPSULE BY MOUTH 1 TIME EACH DAY. DO NOT CRUSH OR CHEW. 08/11/22 Salena Flores NP polyethylene glycol (MIRALAX) 17 gram packet Take 17 g by mouth 1 (one) time each day for 3 days. 11/05/22 11/08/22 Salena Flores NP metoprolol tartrate (LOPRESSOR) 100 mg tablet TAKE 1 TABLET BY MOUTH TWICE A DAY 07/20/22 11/05/22 Salena Flores NP Physical Examination Vital Signs: Temp: 36.6 C (97.8 F) (11/10 1113) Heart Rate: 87 (11/10 1449) Resp: 18 (11/10 1449) BP: 116/82 (11/10 1449) GENERAL: Male in NAD CV: Regular rate and rhythm, no murmurs. RESP: Clear to auscultation bilaterally GI: Soft, non-tender. NEURO: Alert, Ox3. Complete paralysis of bilateral lower extremities, able to move bilateral upper extremities. Tingling/numbness feeling starts little bit above umbilical region. Laboratory and Additional Data Reviewed: [x] Laboratory [x] Radiology [x] Cardiology [x] Medications [x] Transcriptions [] Microbiology [] Outside Records [] Family documented in this encounterBrooke Glen Behavioral [id number] History and physical note* Fahad Mccoy MD - 11/10/2022 3:36 PM EST Images from the original note were not included. Fahad Mccoy MD [facility] Hospitalists History and Physical Patient Name: Armand Barron : 1955 Admit Date: [id number] Physicians: Salena Flores NP (PCP) Perpetual Assessment: Armand Barron is a 67 y.o. male who presented from home on 11/10/2022 with pastmedical history of essential hypertension presented with complaints of bilateral lower extremity complete paralysis. Assessment and Plan Acute bilateral lower extremity paralysis Compression fractures, T2 and T7 Metastatic osseous disease Cord compression -Presented with bilateral lower extremity acute weakness not able to move them. -Imaging as noted below, shows T2 and T7 compression fractures, cord compression due to epidural tumor. -Admit for further evaluation, -Neurosurgery following, appreciate recommendations. -MRI of the C-spine, T-spine and L-spine already done. Apart from the findings noted above, has diffuse DDD. -Given nauseous mental status, neurosurgery added CT of the chest and CT of the abdomen with contrast. -For now supportive care with IV fluids, antiemetics and pain medications. -Also add Vanegas catheter. -Hold all AC/AP. -Neurosurgery planning possible OR tomorrow pending further testing. -We will eventually add PT/OT once we have neurosurgery plan. -Oncology consulted. Pre-Op Evaluation - The patient is being evaluated for a high risk surgery - The patient has no symptoms - The patient's functional capacity is >4 METS - The patient has the following pertinent Revised Cardiac Risk Index Indicators high risk surgery - Based on the above, the patient is at moderate risk to proceed to surgery - The patient may proceed to surgery, with comments/risks as noted above - Other recommendations: No further work-up is necessary given acuity of the situation. Patient at baseline prior to his bilateral lower extremity weakness is very ambulatory, with no prior history of CAD, CHF, CVA or COPD. Had incentive spirometer. Acute kidney injury -Baseline creatinine normal, creatinine on presentation 1.5. -Unfortunately already received contrast for MRI and CTs. I did try to reach out to ED RN but patient already getting CT of the abdomen pelvis. -We will add IV fluids and monitor. -Continue to avoid nephrotoxins. Essential hypertension -Blood pressure stable. -At home on metoprolol and Norvasc, Hypothyroidism -Synthroid Hyperlipidemia -Statin GERD -PPI Constipation -Likely due to cord compression. -Plan as above. Medication Reconciliation: Reviewed DVT Prophylaxis: SCD/TEDS Code Status: Full resuscitation Expected Date of Discharge: TBD Medical/Social Complexity: Patient requires hospitalization due to bilateral lower extremity weakness, cord compression, osseous metastatic disease, compression fractures requiring neurosurgery evaluation, oncology evaluation possibly going to the OR. History Chief Complaint: Complete paralysis of bilateral lower extremities HPI and ROS: Armand Barron is a 67 y.o. male with past medical history of essential hypertension presented with complaints of bilateral lower extremity complete paralysis. On my evaluation patient is alert and oriented x3, saturating well on room air and looks comfortable. Patient notes that he wokeup this morning around 430 with complete paralysis of bilateral lower extremity with some tingling sensation. Patient tells me that from past 3 weeks he is having issues with constipation, was takinglike to use with no significant improvement. But was feeling slowly getting weaker with some intermittent tingling sensation. Patient apparently had a fall yesterday evening which he thinks is related to his weakness but this was a mechanical fall. Denies hitting his head at this time. So far work-up concerning for metastatic osseous disease with cord compression due to epidural tumor at T2 and T7. Patient denies any fevers, chills, nausea, vomiting, diarrhea, dysuria, chest pain or shortness of breath. Patient currently having issues urinating and with bowel movements. PMH/PSH/SH/FH: Past Medical History: Diagnosis Date Hypercholesteremia Hypertension Hypothyroidism Vitamin deficiency Past Surgical History: Procedure Laterality Date CHOLECYSTECTOMY 09/27/1989 Family History Problem Relation Name Age of Onset Other (hypertensive disorder) Mother Other (malignant lymphoma) Mother Malig Hypertension Mother Other (hypertensive disorder) Father Other (hypertensive disorder) Brother Social History Socioeconomic History Marital status: Single Spouse name: Not on file Number of children: Not on file Years of education: Not on file Highest education level: Not on file Occupational History Not on file Tobacco Use Smoking status: Never Smokeless tobacco: Never Vaping Use Vaping Use: Never used Substance and Sexual Activity Alcohol use: Yes Alcohol/week: 2.0 standard drinks Types: 2 Cans of beer per week Drug use: Never Sexual activity: Not on file Other Topics Concern Not on file Social History Narrative Not on file Allergy Information: I have reviewed the patient's allergies. Patient has no known allergies. Home Medications: Prior to Admission medications Medication Sig Start Date End Date Taking? Authorizing Provider amLODIPine (NORVASC) 10 mg tablet TAKE 1 TABLET BY MOUTH EVERY DAY 07/20/22 Salena Flores NP atorvastatin (LIPITOR) 10 mg tablet TAKE 1 TABLET BY MOUTH EVERY DAY 07/20/22 Salena Flores NP cholecalciferol (VITAMIN D-3) 1,250 mcg (50,000 unit) capsule Take 1 capsule (50,000 Units total) by mouth 1 (one) time per week. 10/09/22 04/07/23 Salena Flores NP ibuprofen (ADVIL,MOTRIN) 600 mg tablet Take 1 tablet (600 mg total) by mouth every 6 (six) hours ifneeded for mild pain (pain). 10/09/22 12/08/22 Salena Flores NP levothyroxine (SYNTHROID, LEVOTHROID) 88 mcg tablet Take 1 tablet (88 mcg total) by mouth 1 (one) time each day. 09/09/22 09/09/23 Salena Flores NP metoprolol tartrate (LOPRESSOR) 50 mg tablet Take 1 tablet (50 mg total) by mouth 2 (two) times a day. 11/05/22 05/04/23 Salena Flores NP omeprazole (PriLOSEC) [address] capsule TAKE 1 CAPSULE BY MOUTH 1 TIME EACH DAY. DO NOT CRUSH OR CHEW. 08/11/22 Salena Flores NP polyethylene glycol (MIRALAX) 17 gram packet Take 17 g by mouth 1 (one) time each day for 3 days. 11/05/22 11/08/22 Salena Flores NP metoprolol tartrate (LOPRESSOR) 100 mg tablet TAKE 1 TABLET BY MOUTH TWICE A DAY 07/20/22 11/05/22 Salena Flores NP Physical Examination Vital Signs: Temp: 36.6 C (97.8 F) (11/10 1113) Heart Rate: 87 (11/10 1449) Resp: 18 (11/10 1449) BP: 116/82 (11/10 1449) GENERAL: Male in NAD CV: Regular rate and rhythm, no murmurs. RESP: Clear to auscultation bilaterally GI: Soft, non-tender. NEURO: Alert, Ox3. Complete paralysis of bilateral lower extremities, able to move bilateral upper extremities. Tingling/numbness feeling starts little bit above umbilical region. Laboratory and Additional Data Reviewed: [x] Laboratory [x] Radiology [x] Cardiology [x] Medications [x] Transcriptions [] Microbiology [] Outside Records [] Family Kristin[employer] [id number] Consult note* Rich Castillo NP - 11/10/2022 11:54 AM ESTAssociated Order(s): IP CONSULT TO NEUROSURGERY Neurosurgery Initial Consultation Note Patient: Armand Barron Room: [place] [address] Age: 67 y.o. Attending: Rico Bhat MD Date of Service: 11/10/22 Admit: 11/10/2022 PCP: Salena Flores, TIP [id number] Patient is on the surgery schedule for 11/11/22 at 1300. Assessment/Plan Bilateral lower extremity paralysis (acute) Tumor noted at T2 T7 -Bladder scan 870 --Recommend Vanegas placement -Imaging --MRI C T L spine Osseous mets with pathologic comp fx cord compression due to epidural tumor at T2and T7 --CT chest abdomen pelvis pending -Pain management per Medicine -Oncology consult -ok for a diet now -NPO after MN for potential procedure 11/11 -No anticoagulant antiplatelet NSAIDs until okayed by neurosurgery Other medical issues per medicine -Request a medical clearance note by medicine Disposition -Final Neurosurgical plan pending CT scans /Mets workup -Prepping patient for a potential Neurosurgical procedure 11/11 -Pending clinical course Rich Castillo, PUBLICITY EXPERT 60 minutes were spent reviewing patient's chart, labs, consulting notes, imaging, speaking with consulting providers and physical assessment of patient. Rounded on patient with Dr. Tao, discussed MRI findings. Discussed potential need for neurosurgical intervention but that we had more testing to complete before final plan is made. Spoke with Dr. Addison Oncology made him aware of patient's situation. Chief complaint Chief Complaint Patient presents with Extremity Weakness HPI Armand Barron is a 67-year-old male that denies any previous back issues/back pain, neurosurgical issues. Patient reports that last week he began to have tingling from his waist line down to his feet the left was worse than the right. Patient denies any neck or back pain at this time. He saw his PCPon , 11/05/2022 for constipation. At this time patient was walking without any difficulty whatsoever. Then on 11/09 patient reports his left leg was feeling rubbery but was having no issues with walking. He reports left shoulder pain which was a 1/10 on the pain scale very mild. Patient stated he did have a fall on 11/09 when he was carrying his laundry. Patient states he fell forward onto h is hands and knees. Patient denies hitting his back neck or head at this time denies any loss of consciousness. Patient stated that this morning at 0230 he got up to use the restroom he was able to walk reported bilateral lower extremity tingling and his legs felt rubbery. Reports at 0430 he woke up he could not move his right leg but was unable to move his left leg and could not stand. Patient crawled to get his cell phone. Patient denies any urinary or bowel incontinence and reports being unable to void since yesterday evening. Patient endorses he was hoping the weakness would resolve but this morning when it did not he called 911 about 9:30 AM. Patient presented to [facility] emergency department and neurosurgery was consulted based upon presenting symptoms. Objective Vitals: 11/10/22 1130 BP: (!) 146/93 Pulse: (!) 111 Resp: 15 Temp: SpO2: 100% General: Resting quietly in bed. Calm and cooperative. Neurological: Alert and oriented x4. Face symmetrical sensation intact. Speech clear, fluent and appropriate. EOM intact. No double vision or blurred vision noted. shoulder shrug 5/5 Bilateral upper extremities: deltoid flexion/extension 5/5; tricep flexion/extension 5/5 ; bicep flexion/extension 5/5; finger adduction 5/5; finger abduction 5/5. Grasps 5/5. No arm drift noted. Light touch sensation intact. Positive Dwaine bilaterally, ulnar and brachial radialis reflex 4/4 Bilateral lower extremities: Hip flexion/extension/adduction/abduction 0/5; knee flexion/extension 0/5; plantar flexion 0/5; dorsiflexion 0/5; great toe extension 0/5. drift noted. Sensation decreased and absent in left foot. Denies Saddle sensation reports he can feel his penis and surrounding areas. No clonus noted bilaterally. Neg straight leg test bilat No rectal tone noted on assessment Cardiovascular: No edema noted Pulmonary: Lungs Respirations full, regular and easy. No cough noted. No distress noted GI: Abdomen soft, non-tender and non-distended. : Unable to void bladder scan 870 mL noted Skin: warm, dry and intact. No rashes or lesions noted. ROS Review of Systems Constitutional: Negative for activity change, chills and fever. HENT: Negative for trouble swallowing. Eyes: Negative for photophobia and visual disturbance. Respiratory: Negative for cough and shortness of breath. Cardiovascular: Negative for chest pain and leg swelling. Gastrointestinal: Positive for constipation. Negative for abdominal pain, diarrhea, nausea and vomiting. Endocrine: Negative for polydipsia and polyuria. Genitourinary: Negative for difficulty urinating, dysuria and frequency. Musculoskeletal: Positive for back pain (left shoulder region) and gait problem. Negative for neck pain and neck stiffness. Skin: Negative for color change and wound. Neurological: Positive for tremors (right hand), weakness and numbness (left foot and tingling bilat legs). Negative for dizziness, seizures, syncope, facial asymmetry, speech difficulty, light-headedness and headaches. Hematological: Does not bruise/bleed easily. Psychiatric/Behavioral: Negative for confusion and sleep disturbance. The patient is not nervous/anxious. Past Medical History Past Medical History: Diagnosis Date Hypercholesteremia Hypertension Hypothyroidism Vitamin deficiency Past Surgical History Past Surgical History: Procedure Laterality Date CHOLECYSTECTOMY 09/27/1989 Social History Social History Socioeconomic History Marital status: Single Spouse name: Not on file Number of children: Not on file Years of education: Not on file Highest education level: Not on file Occupational History Not on file Tobacco Use Smoking status: Never Smokeless tobacco: Never Vaping Use Vaping Use: Never used Substance and Sexual Activity Alcohol use: Yes Alcohol/week: 2.0 standard drinks Types: 2 Cans of beer per week Drug use: Never Sexual activity: Not on file Other Topics Concern Not on file Social History Narrative Not on file Family History Family History Problem Relation Name Age of Onset Other (hypertensive disorder) Mother Other (malignant lymphoma) Mother Other (hypertensive disorder) Father Other (hypertensive disorder) Brother Medications Allergies: No Known Allergies Home Medications: Current Outpatient Medications Medication Instructions amLODIPine (NORVASC) 10 mg tablet TAKE 1 TABLET BY MOUTH EVERY DAY atorvastatin (LIPITOR) 10 mg tablet TAKE 1 TABLET BY MOUTH EVERY DAY cholecalciferol (VITAMIN D-3) 50,000 Units, oral, Weekly ibuprofen (ADVIL,MOTRIN) 600 mg, oral, Every 6 hours PRN levothyroxine (SYNTHROID, LEVOTHROID) 88 mcg, oral, Daily metoprolol tartrate (LOPRESSOR) 50 mg, oral, 2 times daily omeprazole (PriLOSEC) [address] capsule TAKE 1 CAPSULE BY MOUTH 1 TIME EACH DAY. DO NOT CRUSH OR CHEW. Current Medications: No current facility-administered medications for this encounter. Current Outpatient Medications: amLODIPine (NORVASC) 10 mg tablet, TAKE 1 TABLET BY MOUTH EVERY DAY, Disp: 90 tablet, Rfl: 3 atorvastatin (LIPITOR) 10 mg tablet, TAKE 1 TABLET BY MOUTH EVERY DAY, Disp: 90 tablet, Rfl: 3 cholecalciferol (VITAMIN D-3) 1,250 mcg (50,000 unit) capsule, Take 1 capsule (50,000 Units total) by mouth 1 (one) time per week., Disp: 12 capsule, Rfl: 2 ibuprofen (ADVIL,MOTRIN) 600 mg tablet, Take 1 tablet (600 mg total) by mouth every 6 (six) hours if needed for mild pain (pain)., Disp: 60 tablet, Rfl: 0 levothyroxine (SYNTHROID, LEVOTHROID) 88 mcg tablet, Take 1 tablet (88 mcg total) by mouth 1 (one) time each day., Disp: 90 each, Rfl: 3 metoprolol tartrate (LOPRESSOR) 50 mg tablet, Take 1 tablet (50 mg total) by mouth 2 (two) times a day., Disp: 60 each, Rfl: 2 omeprazole (PriLOSEC) [address] capsule, TAKE 1 CAPSULE BY MOUTH 1 TIME EACH DAY. DO NOT CRUSH OR CHEW., Disp: 90 capsule, Rfl: 1 Radiology Results for orders placed during the hospital encounter of 05/07/22 XR Thoracic Spine 2 Views Narrative EXAM: XR CERVICAL SPINE 4-5 VIEWS, XR THORACIC SPINE 2 VIEWS. DATE OF EXAM: 05/07/2022 12:33 PM. HISTORY: upper back pain. Upper mid back pain for 2 weeks. COMPARISON: Two-view chest x-ray dated 02/23/2017. FINDINGS: Cervical spine: Normal alignment. Vertebral body heights are maintained. Multilevel marginal osteophyte formation. Intervertebral disc and loss at C4-C5 and C5-C6. Left neural foramen are not optimally in plane on the oblique view. Uncovertebral joint hypertrophy with suggestion of some right bony neural foraminalnarrowing at C5-C6 and C6-C7. Prevertebral soft tissues unremarkable. Thoracic spine: Normal AP alignment. Vertebral body heights are maintained. Mild multilevel endplate spurring. Minimal intervertebral disc and loss the midthoracic spine. Overlying soft tissues are unremarkable. Impression Cervical spine: No acute bony abnormality. Mild multilevel degenerative changes of the cervical spine. Left neural foramen are not optimally in plane on the oblique view. There is suggestion of some right bony neural foraminal narrowing at C5-C6 and C6-C7. Thoracic spine: No acute bony abnormality. Mild degenerative changes of the thoracic spine. -------- FINAL REPORT -------- Dictated By: Kartik Woodward Dictated Date: 05/07/2022 15:10 Assigned Physician: Kartik oWodward Reviewed and Electronically Signed By: Kartik Woodward Signed Date: 05/07/2022 15:12 Workstation ID: [id number] Transcribed By: Self Edit Transcribed Date: 05/07/2022 15:10 Results for orders placed during the hospital encounter of 05/07/22 XR Thoracic Spine 2 Views Narrative EXAM: XR CERVICAL SPINE 4-5 VIEWS, XR THORACIC SPINE 2 VIEWS. DATE OF EXAM: 05/07/2022 12:33 PM. HISTORY: upper back pain. Upper mid back pain for 2 weeks. COMPARISON: Two-view chest x-ray dated 02/23/2017. FINDINGS: Cervical spine: Normal alignment. Vertebral body heights are maintained. Multilevel marginal osteophyte formation. Intervertebral disc and loss at C4-C5 and C5-C6. Left neural foramen are not optimally in plane on the oblique view. Uncovertebral joint hypertrophy with suggestion of some right bony neural foraminalnarrowing at C5-C6 and C6-C7. Prevertebral soft tissues unremarkable. Thoracic spine: Normal AP alignment. Vertebral body heights are maintained. Mild multilevel endplate spurring. Minimal intervertebral disc and loss the midthoracic spine. Overlying soft tissues are unremarkable. Impression Cervical spine: No acute bony abnormality. Mild multilevel degenerative changes of the cervical spine. Left neural foramen are not optimally in plane on the oblique view. There is suggestion of some right bony neural foraminal narrowing at C5-C6 and C6-C7. Thoracic spine: No acute bony abnormality. Mild degenerative changes of the thoracic spine. -------- FINAL REPORT -------- Dictated By: Kartik Woodward Dictated Date: 05/07/2022 15:10 Assigned Physician: Kartik Woodward Reviewed and Electronically Signed By: Kartik Woodward Signed Date: 05/07/2022 15:12 Workstation ID: [id number] Transcribed By: Self Edit Transcribed Date: 05/07/2022 15:10 Labs Lab Results Component Value Date WBC 9.8 11/10/2022 WBC 100 11/10/2022 RBC 3.99 (L) 11/10/2022 HGB 12.4 (L) 11/10/2022 HCT 36.4 (L) 11/10/2022 PLT 198 11/10/2022 No results found for: CSFCX, URINECX, CULTURE, BLOODCX Associated attestation - Ish Tao Jr., MD - 11/11/2022 6:00 PM EST I am the neurosurgeon of record. The patient's chief complaint, imaging and all relevant diagnosticdata was reviewed in great detail, treatment plan was formulated with the advanced practice provider. I agree with the advanced practice provider's assessment and plan. I was at the bedside at 1400 on 11/10/2022 and personally evaluated the patient. Mr. Barron presented with progressive loss of motor/sensory function in both lower extremities over 7-10 days. 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 After a long discussion with Mr. Barron, given that this was a previously unknown diagnosis, we agreed to first complete a full workup to determine the systemic extent of disease before proceeding witha highly morbid procedure with a difficult recovery. Once the workup was complete, we discussed a decompression at both T2, and T7, with an instrumented fusion from C7-T4 to prevent further kyphosis. I counseled Mr. Barron about the risks, benefits, and alternatives to surgery prior to proceeding. Given his deficits, as well as the multiple sites of severe spinal cord compression, I do not expect arapid return of function. I expect that he will have a significant rehab stay after surgery, and hewill likely need chemotherapy and radiation treatment once we obtain tissue for a pathologic diagnosis. He understands the risks of surgery, as well as the expected recovery. He would like to proceed. [email or web address] Phone: [phone] History of Present illness Narrative* Salena Flores, APERTURE MASK ETCHER - 10/09/2022 8:30 AM EST Subjective Patient ID: Armand Barron is a 67 y.o. male. Back pain - still radiating over to chest at times; feels as though he's taking too much advil; sawvera in August (Dr. Jimenez) and feels as though it may be stemming from his neck. States the last couple of days haven't been too bad but states he has had to take about 8-10 advil throughout the span of the day. It was recommended he do PT but patient admits he hasn't started; denies any discolored stools Review of Systems As per HPI Objective Physical Exam Vitals and nursing note reviewed. Constitutional: Appearance: Normal appearance. Eyes: Extraocular Movements: Extraocular movements intact. Pulmonary: Effort: Pulmonary effort is normal. Musculoskeletal: General: Normal range of motion. Cervical back: Normal range of motion. Neurological: General: No focal deficit present. Mental Status: He is alert and oriented to person, place, and time. Psychiatric: Mood and Affect: Mood normal. Behavior: Behavior normal. Assessment/Plan Left shoulder pain, unspecified chronicity (Primary) - ibuprofen (ADVIL,MOTRIN) 600 mg tablet; Take 1 tablet (600 mg total) by mouth every 6 (six) hoursif needed for mild pain (pain). Dispense: 60 tablet; Refill: 0 - Ambulatory referral to Physical Therapy and Athletic Training; Future Upper back pain - ibuprofen (ADVIL,MOTRIN) 600 mg tablet; Take 1 tablet (600 mg total) by mouth every 6 (six) hoursif needed for mild pain (pain). Dispense: 60 tablet; Refill: 0 - Ambulatory referral to Physical Therapy and Athletic Training; Future Vitamin D deficiency, unspecified - cholecalciferol (VITAMIN D-3) 1,250 mcg (50,000 unit) capsule; Take 1 capsule (50,000 Units total) by mouth 1 (one) time per week. Dispense: 12 capsule; Refill: 2 documented in this [facility]01-09-2023 History of Present illness Narrative* Nati Rodarte MA - 10/05/2022 3:44 PM EST Pt is requesting a refill on vitamin D. documented in this [facility]12-08-2022 History of Present illness Narrative* Nati Rodarte MA - 09/03/2022 3:49 PM EST Can you also place any labs you would like him to complete in 3 months? * Gissel Kasper - 09/03/2022 3:44 PM EST Pt needs a refill on levothyroxine 88 mcg - pt will be out this weekend documented in this [facility]11-25-2022 History of Present illness Narrative* Salena Flores NP - 08/21/2022 9:00 AM EST Subjective Patient ID: Armand Barron is a 67 y.o. male. Left shoulder pain - chronic for patient; has been ongoing for several months; thought it was getting better as he was no longer sleeping on a cot; over the last 10 days it is much worse and worsens as the day goes on; states around the end of the day is when it's at it's worst; denies any change in ROM Review of Systems As per HPI Objective Physical Exam Vitals and nursing note reviewed. Constitutional: Appearance: Normal appearance. Eyes: Extraocular Movements: Extraocular movements intact. Pulmonary: Effort: Pulmonary effort is normal. Musculoskeletal: General: Normal range of motion. Cervical back: Normal range of motion. Neurological: General: No focal deficit present. Mental Status: He is alert and oriented to person, place, and time. Psychiatric: Mood and Affect: Mood normal. Behavior: Behavior normal. Assessment/Plan Left shoulder pain, unspecified chronicity (Primary) - XR Shoulder 2+ Views Left; Future - Ambulatory referral to Orthopedic Surgery; Future [id number] History of Present illness Narrative* Salena Flores NP - 07/30/2022 8:30 AM EDT Subjective Patient ID: Armand Barron is a 67 y.o. male. HTN - chronic and stable; no refills needed Hypothyroid - stable; due for labs Upper back pain - this is improving since he is no longer sleeping on a cot Review of Systems As per HPI Objective Physical Exam Vitals and nursing note reviewed. Constitutional: Appearance: Normal appearance. He is well-developed and well-groomed. HENT: Head: Normocephalic and atraumatic. Eyes: Extraocular Movements: Extraocular movements intact. Cardiovascular: Rate and Rhythm: Normal rate and regular rhythm. Heart sounds: Normal heart sounds. Pulmonary: Effort: Pulmonary effort is normal. Breath sounds: Normal breath sounds. Musculoskeletal: General: Normal range of motion. Cervical back: Normal range of motion. Neurological: General: No focal deficit present. Mental Status: He is alert and oriented to person, place, and time. Psychiatric: Attention and Perception: Attention normal. Mood and Affect: Mood and affect normal. Speech: Speech normal. Behavior: Behavior normal. Behavior is cooperative. Thought Content: Thought content normal. Cognition and Memory: Cognition and memory normal. Judgment: Judgment normal. Assessment/Plan Mixed hyperlipidemia (Primary) Comments: Due for labs. Patient will go for outpatient. Orders: - Lipid panel with reflex to direct LDL; Future Essential hypertension Comments: Stable. No refills needed at this time. Orders: - Comprehensive metabolic panel; Future - CBC and differential; Future Hypothyroidism, unspecified type Comments: Due for labs. Orders: - Thyroid stimulating hormone; Future Upper back pain on left side Comments: This is improving as patient is no longer sleeping on a cot. Vitamin D deficiency Comments: Will check labs. Orders: - Vitamin D 25 hydroxy; Future documented in this encounterBrooke Glen Behavioral [id number] History of Present illness Narrative* Armand José MD - 06/15/2022 1:20 PM EDT Chief complaint Upper back pain History This is a 66-year-old male presents with a few month history of upper back pain. Upon closer discussion, it is more of the scapular pain. It is over the left scapula and radiates into the left shoulder. It occasionally radiates across the midline back into the right area. He denies any neurologic deficits along with it. Denies weakness, numbness, tingling, gait difficulty. He denies any back or neck pain. No arm or leg pain. 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 Work is not been affected by this pain A 10 point review of systems was otherwise negative. Physical Exam Awake, alert, no acute distress. Full strength on manual muscle testing. Normal gait. Sensation intact light touch. Tenderness to palpation along the left medial scapular spine. 2+ deep tendon reflexes patellar, Achilles, biceps, brachial radialis. Cranial nerves grossly intact. Imaging We have x-ray of the thoracic spine that shows age-appropriate degenerative changes. We have x-ray of cervical spine which shows mild neuroforaminal narrowing on the obliques. Assessment and plan 66-year-old male with left scapular pain. He denies any neck pain, back pain, cervical or lumbar radiculopathy. I will defer further investigation to his primary care doctor for scapular pain. Regarding his thoracic spine, I think his x-rays look appropriate for age and have no further recommendations. I did discuss physical therapy was an option, but the patient said he did not feel bad enough to merit therapy. He does have neuroforaminal narrowing on the x-ray of the cervical spine, but is asymptomatic from them. 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 Back pain is a chronic problem without significant threat to bodilyfunction. I reviewed the x-ray of the cervical spine, x-ray of the thoracic spine, and radiology report. documented in this encounterBrooke Glen Behavioral [id number] History of Present illness Narrative* Maryann Dee MA - 06/04/2022 4:20 PM EDT Spoke to patient and appointment scheduled with Dr José for 06/15/22. * Tonia Thompson - 05/29/2022 3:25 PM EDT Patient has referral in the system. He stopped in ib 05/29 wanting to be scheduled I told him someonewould reach out to him. documented in this encounterBrooke Glen Behavioral [id number] History of Present illness Narrative* Salena Flores NP - 05/19/2022 3:36 PM EDT This was already done earlier today. * Gissel Kasper - 05/19/2022 3:09 PM EDT Pt walked in : asking if the referral for spine spec. Can be done - ( knows Sandra is out) As soon as she can please documented in this [facility]08-17-2022 History of Present illness Narrative* Nati Rodarte MA - 05/13/2022 2:14 PM EDT Pt called back and he is ok with the paid search specialist referral. documented in this [facility]08-11-2022 History of Present illness Narrative* Salena Flores NP - 05/07/2022 11:40 AM EDT Subjective Patient ID: Armand Barron is a 66 y.o. male. Has about 4 more days left of the steroid and states it has helped mostly but still having the leftupper trapezius pain. Pain does not radiate. Review of Systems As per HPI Objective Physical Exam Vitals and nursing note reviewed. Constitutional: Appearance: Normal appearance. Eyes: Extraocular Movements: Extraocular movements intact. Pulmonary: Effort: Pulmonary effort is normal. Musculoskeletal: General: Normal range of motion. Cervical back: Normal and normal range of motion. Neurological: General: No focal deficit present. Mental Status: He is alert and oriented to person, place, and time. Psychiatric: Mood and Affect: Mood normal. Behavior: Behavior normal. Assessment/Plan Upper back pain on left side (Primary) - XR Cervical Spine 2-3 Views; Future - XR Thoracic Spine 2 Views; Future documented in this [facility]08-03-2022 History of Present illness Narrative* Salena Flores NP - 04/29/2022 1:00 PM EDT Subjective Patient ID: Armand Barron is a 66 y.o. male. Upper back/trapezius muscle pain - pain is worse in the morning; hot shower helped; states his shoulders were very painful; pain seems to be different places each time but always is in the upper backand shoulder area Review of Systems As per HPI Objective Physical Exam Vitals and nursing note reviewed. Constitutional: Appearance: Normal appearance. Eyes: Extraocular Movements: Extraocular movements intact. Pulmonary: Effort: Pulmonary effort is normal. Musculoskeletal: General: Normal range of motion. Cervical back: Normal and normal range of motion. Neurological: General: No focal deficit present. Mental Status: He is alert and oriented to person, place, and time. Psychiatric: Mood and Affect: Mood normal. Behavior: Behavior normal. Assessment/Plan Upper back pain (Primary) Comments: Will trial steroid. If ineffective, discussed having imaging done. Other orders - predniSONE (DELTASONE) 10 mg tablet; Take 3 tablets (30 mg total) by mouth 1 (one) time each day for 3 days, THEN 2 tablets (20 mg total) 1 (one) time each day for 3 days, THEN 1 tablet (10 mg total) 1 (one) time each day for 3 days, THEN 0.5 tablets (5 mg total) 1 (one) time each day for 2 days.Dispense: 19 each; Refill: 0 documented in this encounterBrooke Glen Behavioral [id number] History of Present illness Narrative* Salena Flores NP - 04/07/2022 3:00 PM EDT Subjective Patient ID: Armand Barron is a 66 y.o. male. Upper Left Back Pain - still sleeping on a cot with an air mattress; pain worsened around 7/4 but over the last few days it has improved some; states 2 advil In the morning and an ibuprofen at bedtime; Taking NSAIDs at bed time as well; Denies any numbness/tingling in left arm Review of Systems As per HPI Objective Physical Exam Vitals and nursing note reviewed. Constitutional: Appearance: Normal appearance. Eyes: Extraocular Movements: Extraocular movements intact. Pulmonary: Effort: Pulmonary effort is normal. Musculoskeletal: General: Normal range of motion. Cervical back: Normal range of motion. Neurological: General: No focal deficit present. Mental Status: He is alert and oriented to person, place, and time. Psychiatric: Mood and Affect: Mood normal. Behavior: Behavior normal. Assessment/Plan Strain of trapezius muscle, left, subsequent encounter (Primary) Comments: Encouraged daily and nightly stretches as well as heating pad BID. Will have him continue NSAIDs PRN. Discussed possible pred dose or tizanidine if not better documented in this encounterTrinity [id number] History of Present illness Narrative* Salena Flores NP - 02/16/2022 2:20 PM EDT Subjective Patient ID: Armand Barron is a 66 y.o. male. Bloating/Chest discomfort - this has improved greatly with the PPI; he is taking it right before dinner and notices when he forgets Left trapezius pain - this comes and goes; some days he doesn't feel the pain at all; is currently sleeping on a cot while he awaits his new bedroom set Review of Systems As per [facility] Objective Physical Exam Vitals and nursing note reviewed. Constitutional: Appearance: Normal appearance. Eyes: Extraocular Movements: Extraocular movements intact. Pulmonary: Effort: Pulmonary effort is normal. Musculoskeletal: General: Normal range of motion. Cervical back: Normal range of motion. Neurological: General: No focal deficit present. Mental Status: He is alert and oriented to person, place, and time. Psychiatric: Mood and Affect: Mood normal. Behavior: Behavior normal. Assessment/Plan Strain of left trapezius muscle, initial encounter (Primary) Comments: Encouraged nightly and daily stretches. This will most likely improve as well once he gets his new bedroom set and is sleeping more comfortably. Chest discomfort Comments: Noticed great improvement with PPI use. Continue PPI daily before dinner. Orders: - omeprazole (PriLOSEC) [address] capsule; Take 1 capsule (20 mg total) by mouth 1 (one) time each day. Do not crush or chew. Dispense: 90 each; Refill: 1 documented in this encounterBrooke Glen Behavioral [id number] History of Present illness Narrative* Salena Flores NP - 01/29/2022 7:40 AM EDT Subjective Patient ID: Armand Barron is a 66 y.o. male. Chest discomfort - has noticed this recently maybe 1-2 x per week over the last month or two; denies any SOB; the discomfort goes across the top of his chest and sometimes around the back; denies anyrecent URI or heavy lifting; unsure if it is related to anything else HTN: Chronic and Stable Vit D def: Chronic and Stable HLD: Chronic and Stable Hypothyroid: Chronic and Stable Review of Systems As per HPI Objective Physical Exam Vitals and nursing note reviewed. Constitutional: Appearance: Normal appearance. He is well-developed and well-groomed. HENT: Head: Normocephalic and atraumatic. Eyes: Extraocular Movements: Extraocular movements intact. Cardiovascular: Rate and Rhythm: Normal rate and regular rhythm. Heart sounds: Normal heart sounds. Pulmonary: Effort: Pulmonary effort is normal. Breath sounds: Normal breath sounds. Musculoskeletal: General: Normal range of motion. Cervical back: Normal range of motion. Neurological: General: No focal deficit present. Mental Status: He is alert and oriented to person, place, and time. Psychiatric: Attention and Perception: Attention normal. Mood and Affect: Mood and affect normal. Speech: Speech normal. Behavior: Behavior normal. Behavior is cooperative. Thought Content: Thought content normal. Cognition and Memory: Cognition and memory normal. Judgment: Judgment normal. Assessment/Plan Chest discomfort (Primary) Comments: Will trial PPI x 2 weeks and have patient monitor for improvement; EKG normal. Orders: - ECG 12 lead ([facility]); Future - omeprazole (PriLOSEC) [address] capsule; Take 1 capsule (20 mg total) by mouth 1 (one) time each day. Do not crush or chew. Dispense: 30 each; Refill: 0 Hypothyroidism, unspecified type Essential hypertension Mixed hyperlipidemia documented in this [facility]12-21-2021 History of Present illness Narrative* Petros Bartholomew MD - 09/16/2021 4:53 PM EST sent * Lilly Benjamin - 09/16/2021 3:32 PM EST Patient stopped into office and needs a refill on his levothyroxine 88 mcg. He states he took the last pill today. Can you refill this? Pharmacy on file is correct. documented in this encounterBrooke Glen Behavioral [id number] History of Present illness Narrative* Petros Bartholomew MD - 08/25/2021 10:03 AM EST Patient needs to contact provider for refills documented in this encounterBrooke Glen Behavioral [id number] History of Present illness Narrative* Petros Bartholomew MD - 07/31/2021 8:15 AM EDT Associated Problem(s): Mixed hyperlipidemia Chronic and Stable * Petros Bartholomew MD - 07/31/2021 8:15 AM EDT Associated Problem(s): Hypothyroidism Chronic and Stable Refill thyroid meds when labs return * Petros Bartholomew MD - 07/31/2021 8:15 AM EDT Associated Problem(s): Vitamin D deficiency Chronic and Stable * Petros Bartholomew MD - 07/31/2021 8:14 AM EDT Associated Problem(s): Essential hypertension Chronic and Stable * Petros Bartholomew MD - 07/31/2021 7:40 AM EDT Patient ID: Armand Barron is a 66 y.o. male. Assessment/Plan Hypothyroidism, unspecified type (Primary) Assessment & Plan: Chronic and Stable Refill thyroid meds when labs return Orders: - TSH - Thyroxine free Mixed hyperlipidemia Assessment & Plan: Chronic and Stable Orders: - Lipid panel - Comprehensive metabolic panel - atorvastatin (LIPITOR) 10 mg tablet; Take 1 tablet (10 mg total) by mouth 1 (one) time each day. Dispense: 90 each; Refill: 3 Essential hypertension Assessment & Plan: Chronic and Stable Orders: - amLODIPine (NORVASC) 10 mg tablet; Take 1 tablet (10 mg total) by mouth 1 (one) time each day. Dispense: 90 each; Refill: 3 - metoprolol tartrate (LOPRESSOR) 100 mg tablet; Take 1 tablet (100 mg total) by mouth 2 (two) times a day. Dispense: 180 each; Refill: 3 Vitamin D deficiency Assessment & Plan: Chronic and Stable Orders: - Vitamin D 25 hydroxy Chief Complaint Patient presents with Follow-up general check up Subjective HPI HTN: Chronic and Stable Vit D def: Chronic and Stable HLD: Chronic and Stable Hypothyroid: Chronic and Stable The following portions of the patient's chart were reviewed in this encounter and updated as appropriate: Tobacco Allergies Meds Problems Med Hx Surg Hx Fam Hx Soc Hx Review of Systems Constitutional: Negative for activity change and fever. HENT: Negative for congestion. Respiratory: Negative for chest tightness. Cardiovascular: Negative for chest pain and leg swelling. Objective Visit Vitals BP 128/68 (BP Location: Right arm, Patient Position: Sitting) Pulse 51 Temp 36.8 C (98.3 F) (Temporal) Resp 16 Ht 1.651 m (65) Wt 82.6 kg (182 lb 3.2 oz) SpO2 98% BMI 30.32 kg/m Smoking Status Never Smoker BSA 1.9 m Physical Exam Vitals reviewed. Constitutional: Appearance: Normal appearance. HENT: Head: Normocephalic and atraumatic. Nose: Nose normal. Eyes: Extraocular Movements: Extraocular movements intact. Conjunctiva/sclera: Conjunctivae normal. Cardiovascular: Rate and Rhythm: Normal rate and regular rhythm. Heart sounds: Normal heart sounds. Pulmonary: Effort: Pulmonary effort is normal. Breath sounds: Normal breath sounds. Musculoskeletal: General: Normal range of motion. Cervical back: Normal range of motion. Right lower leg: No edema. Left lower leg: No edema. Neurological: Mental Status: He is alert and oriented to person, place, and time. Psychiatric: Mood and Affect: Mood normal. Behavior: Behavior normal. Thought Content: Thought content normal. Judgment: Judgment normal. documented in [facility] encounterL[facility]Evaluation [facility]* Diagnosis Hypothyroidism, unspecified type- Primary Mixed hyperlipidemia Essential hypertension Unspecified essential hypertension Vitamin D deficiency documented in this encounter [facility] note* Diagnosis Hypothyroidism, unspecified documented in this encounter [facility] note* Diagnosis Hypothyroidism, unspecified type- Primary documented in this encounter [facility] note* Diagnosis COVID-19 vaccine administered- Primary documented in this encounter [facility] note* Diagnosis Chest discomfort- Primary Other chest pain Hypothyroidism, unspecified type Essential hypertension Unspecified essential hypertension Mixed hyperlipidemia documented in this encounter [facility] note* Diagnosis Strain of left trapezius muscle, initial encounter- Primary Chest discomfort Other chest pain documented in this encounter [facility] note* Diagnosis Vitamin D deficiency, unspecified documented in this encounter [facility] note* Diagnosis Strain of trapezius muscle, left, subsequent encounter- Primary documented in this encounter [facility] note* Diagnosis Upper back pain- Primary Unspecified backache documented in this encounter [facility] note* Diagnosis Upper back pain on left side- Primary Upper back pain on left side documented in this encounter [facility] note* Diagnosis Upper back pain on left side documented in this encounter [facility] note* Diagnosis Upper back pain- Primary Unspecified backache documented in this encounter [facility] note* Diagnosis Upper back pain Unspecified backache documented in this encounter [facility] note* Diagnosis Essential hypertension Unspecified essential hypertension Mixed hyperlipidemia documented in this encounter [facility] note* Diagnosis Mixed hyperlipidemia- Primary Essential hypertension Unspecified essential hypertension Hypothyroidism, unspecified type Upper back pain on left side Vitamin D deficiency documented in this encounter [facility] note* Diagnosis COVID-19 vaccine administered- Primary documented in this encounter [facility] note* Diagnosis Chest discomfort Other chest pain documented in this encounter [facility] note* Diagnosis Left shoulder pain, unspecified chronicity- Primary Left shoulder pain, unspecified chronicity documented in this encounter [facility] note* Diagnosis Left shoulder pain, unspecified chronicity documented in this encounter [facility] note* Diagnosis Left shoulder pain, unspecified chronicity- Primary Upper back pain Unspecified backache Vitamin D deficiency, unspecified documented in this encounter [facility] note* Diagnosis Weakness- Primary Other malaise and fatigue Cord compression (CMS/HCC) Unspecified disease of spinal cord Thoracic spine tumor Essential hypertension Unspecified essential hypertension Hypothyroidism Unspecified hypothyroidism Mixed hyperlipidemia Cord compression (CMS/HCC) Unspecified disease of spinal cord 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) documented in this encounter [facility]* Diagnosis Multiple myeloma not having achieved remission (CMS/HCC)- Primary 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) [facility]* Diagnosis Infected wound- Primary Posttraumatic wound infection not elsewhere classified Infected wound Posttraumatic wound infection not elsewhere classified Cord compression (CMS/HCC) Unspecified disease of spinal cord Weakness Other malaise and fatigue [facility]* Diagnosis Wound disruption- Primary Disruption of wound, unspecified Surgical site infection [facility]* Diagnosis Multiple myeloma not having achieved remission (CMS/HCC)- Primary [facility]* Diagnosis Multiple myeloma not having achieved remission (CMS/HCC) 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) Cord compression (CMS/HCC) Unspecified disease of spinal cord [facility]* Diagnosis Multiple myeloma not having achieved remission (CMS/HCC)- Primary [facility] in this [facility]* Diagnosis Multiple myeloma not having achieved remission (CMS/HCC) documented in this encounter [facility]* Diagnosis Multiple myeloma, remission status unspecified- Primary [facility] Diagnosis Onset Date Resolution Status Anemia chronic DVT (deep venous thrombosis) chronic Multiple myeloma chronic Paraplegia chronic [facility] Work Phone: Evaluation note* Diagnosis Onset Date Resolution Status Anemia chronic DVT (deep venous thrombosis) chronic Multiple myeloma chronic Paraplegia chronic Anemia chronic DVT (deep venous thrombosis) chronic Multiple myeloma chronic Paraplegia chronic [facility] Work Phone: Evaluation note* Diagnosis Onset Date Resolution Status Anemia chronic DVT (deep venous thrombosis) chronic Multiple myeloma chronic Paraplegia chronic Anemia chronic DVT (deep venous thrombosis) chronic Multiple myeloma chronic Paraplegia chronic History of radiation therapy acute Non-healing surgical wound a cute Multiple myeloma chronic Paraplegia chronic [facility] Work Phone: Evaluation note* Diagnosis Onset Date Resolution Status Anemia chronic DVT (deep venous thrombosis) chronic Multiple myeloma chronic Paraplegia chronic Anemia chronic DVT (deep venous thrombosis) chronic Multiple myeloma chronic Paraplegia chronic History of radiation therapy acute Non-healing surgical wound a cute Multiple myeloma chronic Paraplegia chronic Anemia chronic DVT (deep venous thrombosis) chronic Multiple myeloma chronic Paraplegia chronic [facility] Work Phone: Evaluation note* Diagnosis Multiple myeloma, remission status unspecified- Primary Chronic deep vein thrombosis (DVT) of proximal vein of both lower extremities [facility] Diagnosis Onset Date Resolution Status Anemia chronic DVT (deep venous thrombosis) chronic Multiple myeloma chronic Paraplegia chronic Anemia chronic DVT (deep venous thrombosis) chronic Multiple myeloma chronic Paraplegia chronic History of radiation therapy acute Non-healing surgical wound a cute Multiple myeloma chronic Paraplegia chronic Anemia chronic DVT (deep venous thrombosis) chronic Multiple myeloma chronic Paraplegia chronic History of radiation therapy acute Non-healing surgical wound a cute Multiple myeloma chronic Paraplegia chronic Anemia chronic DVT (deep venous thrombosis) chronic Multiple myeloma chronic Paraplegia chronic History of radiation therapy acute Non-healing surgical wound a cute Multiple myeloma chronic Paraplegia chronic [facility] Work Phone: Evaluation note* Diagnosis Onset Date Resolution Status Anemia chronic DVT (deep venous thrombosis) chronic Multiple myeloma chronic Paraplegia chronic Anemia chronic DVT (deep venous thrombosis) chronic Multiple myeloma chronic Paraplegia chronic History of radiation therapy acute Non-healing surgical wound a cute Multiple myeloma chronic Paraplegia chronic Anemia chronic DVT (deep venous thrombosis) chronic Multiple myeloma chronic Paraplegia chronic History of radiation therapy acute Non-healing surgical wound a cute Multiple myeloma chronic Paraplegia chronic Anemia chronic DVT (deep venous thrombosis) chronic Multiple myeloma chronic Paraplegia chronic History of radiation therapy acute Non-healing surgical wound a cute Multiple myeloma chronic Paraplegia chronic Anemia chronic DVT (deep venous thrombosis) chronic Multiple myeloma chronic Paraplegia chronic [facility] Work Phone: Evaluation note* Diagnosis Onset Date Resolution Status Anemia chronic DVT (deep venous thrombosis) chronic Multiple myeloma chronic Paraplegia chronic History of radiation therapy acute Non-healing surgical wound a cute Multiple myeloma chronic Paraplegia chronic Anemia chronic DVT (deep venous thrombosis) chronic Multiple myeloma chronic Paraplegia chronic History of radiation therapy acute Non-healing surgical wound a cute Multiple myeloma chronic Paraplegia chronic Anemia chronic DVT (deep venous thrombosis) chronic Multiple myeloma chronic Paraplegia chronic History of radiation therapy acute Non-healing surgical wound a cute Multiple myeloma chronic Paraplegia chronic Anemia chronic DVT (deep venous thrombosis) chronic Multiple myeloma chronic Paraplegia chronic Anemia chronic DVT (deep venous thrombosis) chronic Multiple myeloma chronic History of radiation therapy acute Non-healing surgical wound a cute Multiple myeloma chronic Paraplegia chronic [facility] Work Phone: Evaluation note* Diagnosis Onset Date Resolution Status History of radiation therapy acute Non-healing surgical wound a cute Multiple myeloma chronic Paraplegia chronic Anemia chronic DVT (deep venous thrombosis) chronic Multiple myeloma chronic Paraplegia chronic History of radiation therapy acute Non-healing surgical wound a cute Multiple myeloma chronic Paraplegia chronic Anemia chronic DVT (deep venous thrombosis) chronic Multiple myeloma chronic Paraplegia chronic History of radiation therapy acute Non-healing surgical wound a cute Multiple myeloma chronic Paraplegia chronic Anemia chronic DVT (deep venous thrombosis) chronic Multiple myeloma chronic Paraplegia chronic Anemia chronic DVT (deep venous thrombosis) chronic Multiple myeloma chronic History of radiation therapy acute Non-healing surgical wound a cute Multiple myeloma chronic Paraplegia chronic History of radiation therapy acute Non-healing surgical wound a cute Multiple myeloma chronic Paraplegia chronic [facility] Work Phone: Evaluation note* Diagnosis Onset Date Resolution Status Anemia chronic DVT (deep venous thrombosis) chronic Multiple myeloma chronic Paraplegia chronic History of radiation therapy acute Non-healing surgical wound a cute Multiple myeloma chronic Paraplegia chronic Anemia chronic DVT (deep venous thrombosis) chronic Multiple myeloma chronic Paraplegia chronic History of radiation therapy acute Non-healing surgical wound a cute Multiple myeloma chronic Paraplegia chronic Anemia chronic DVT (deep venous thrombosis) chronic Multiple myeloma chronic Paraplegia chronic Anemia chronic DVT (deep venous thrombosis) chronic Multiple myeloma chronic History of radiation therapy acute Non-healing surgical wound a cute Multiple myeloma chronic Paraplegia chronic History of radiation therapy acute Non-healing surgical wound a cute Late effect of radiation chr onic Multiple myeloma chronic [id number] chronic Paraplegia chronic Personal history of 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 Anemia chronic DVT (deep venous thrombosis) chronic Multiple myeloma chronic Paraplegia chronic [facility] Work Phone: Evaluation note* Diagnosis Onset Date Resolution Status Anemia chronic DVT (deep venous thrombosis) chronic Multiple myeloma chronic Paraplegia chronic History of radiation therapy acute Non-healing surgical wound a cute Multiple myeloma chronic Paraplegia chronic Anemia chronic DVT (deep venous thrombosis) chronic Multiple myeloma chronic Paraplegia chronic Anemia chronic DVT (deep venous thrombosis) chronic Multiple myeloma chronic History of radiation therapy acute Non-healing surgical wound a cute Multiple myeloma chronic Paraplegia chronic History of radiation therapy acute Non-healing surgical wound a cute Late effect of radiation chr onic Multiple myeloma chronic [id number] chronic Paraplegia chronic Personal history of 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 Anemia chronic DVT (deep venous thrombosis) chronic Multiple myeloma chronic Paraplegia chronic History of radiation therapy acute Non-healing surgical wound a cute Multiple myeloma chronic Paraplegia chronic Anemia chronic DVT (deep venous thrombosis) chronic Multiple myeloma chronic Paraplegia chronic [facility] Work Phone: Evaluation note* Diagnosis Multiple myeloma, remission status unspecified- Primary documented in this encounter [facility]* Diagnosis Disruption of external operation (surgical) wound, not elsewhere classified, sequela- Primary Multiple myeloma, remission status unspecified (HCC) 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 documented in this encounter [facility]* Diagnosis Disruption of external operation (surgical) wound, not elsewhere classified, sequela- Primary 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 Multiple myeloma, remission status unspecified (HCC) documented in this encounter [facility]* Diagnosis Disruption of external operation (surgical) wound, not elsewhere classified, sequela- Primary 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 Multiple myeloma, remission status unspecified (HCC) [facility]* Diagnosis Disruption of external operation (surgical) wound, not elsewhere classified, sequela [facility]* Diagnosis Disruption of external operation (surgical) wound, not elsewhere classified, sequela documented in this encounter [facility]* Diagnosis Disruption of external operation (surgical) wound, not elsewhere classified, sequela [facility]* Diagnosis Disruption of external operation (surgical) wound, not elsewhere classified, sequela- Primary 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 Multiple myeloma, remission status unspecified (HCC) documented in this encounter [facility] note* Diagnosis Benign prostatic hyperplasia with urinary retention documented in this encounter [facility] note* Diagnosis Benign prostatic hyperplasia with urinary retention- Primary Benign prostatic hyperplasia with urinary retention documented in this encounter [facility] note* Diagnosis Benign prostatic hyperplasia with urinary retention- Primary documented in this encounter [facility] note* Diagnosis Benign prostatic hyperplasia with urinary retention- Primary Neurogenic bladder Neurogenic bladder, NOS documented in this encounter [facility] Discharge instructions* Attachments The following attachments cannot be sent through Care Everywhere. * Bone Marrow Aspiration and Biopsy: [facility] Consultation (Routine) - Authorized Specialty Diagnoses / Procedures Referred By Contac t Referred To Contact Neurosurgery Diagnoses Upper back pain Salena Flores NP [address] [address] Referral ID Status Reason Start Date Expiration Date Visits Requested Visits Authorized [id number] Authorized Specialty Services Required 05/19/2022 11/15/2022 1 1 [facility] for referral (narrative)* Consultation (Routine) - Authorized Specialty Diagnoses / Procedures Referred By Contac t Referred To Contact Orthopaedics / Orthopaedic Surgery Diagnoses Left shoulder pain, unspecified chronicity Salena Flores NP [address] [address] Referral ID Status Reason Start Date Expiration Date Visits Requested Visits Authorized [id number] Authorized Specialty Services Required 2 02/17/2023 1 1 [facility] for referral (narrative)* Consultation (Routine) - Authorized Specialty Diagnoses / Procedures Referred By Contac t Referred To Contact Neurosurgery Diagnoses Cord compression (CMS/HCC) Liliana Blackman NP [address] [place] [address] [facility] Neurosurgery [address] [address] Referral ID Status Reason Start Date Expiration Date Visits Requested Visits Authorized [id number] Authorized Specialty Services Required 12/07/2022 06/05/2023 1 1 Scheduling Instructions NO IMAGING INDICATED [facility] for referral (narrative)[facility] for [facility] Reason for visit Narrative* Consultation (Routine) - Authorized Specialty Diagnoses / Procedures Referred By Contact Referred To Contact Interventional Radiology Diagnoses Multiple myeloma not having achieved remission (CMS/HCC) Renuka Addison MD [address] [id number] [facility] Referral ID Status Reason Start Date Expiration Date Visits Requested Visits Authorized [id number] Authorized Specialty Services Required 01/19/2023 07/18/2023 1 1 [facility] N[facility]* Consultation (Routine) - Authorized Specialty Diagnoses / Procedures Referred By Contact Referred To Contact Interventional Radiology Diagnoses Multiple myeloma not having achieved remission (CMS/HCC) Renuka Addison MD [address] [place] [address] [facility] Referral ID Status Reason Start Date Expiration Date Visits Requested Visits Authorized [id number] Authorized Specialty Services Required 02/03/2023 02/03/2024 1 1 Kristin [facility] Summary Purpose Family History No Family History Records Found Relationship Condition Age at Onset Recorded Date/T saul Not Specified Malignant neoplasm Unknown mother Follicular lymphoma Unknown father Hypertension Unknown Cardiac disease Unknown brother Hypertension Unknown Advance Directives No Advanced Directives Records FoundDocuments on File Type Date Recorded Patient Atm Technician Expl anation Power of Compatibility Test Engineer Latest Code Status on File Code Status Date Activated Date Inactivated Comments Full Code - Default 11/11/2022 6:03 PM Thi s is order is used when code status has not been discussed with the patient, or code status is otherwise unknown/unconfirmed To update the patient's code status, place a code status order. Do not modify or discontinue any currently active code status orders. Code Status History Code Status Date Activated Date Inactivated Comments Full Code 11/10/2022 3:35 PM 11/11/2022 6:03 PM This code status was ascertained in the following way: Code status discussion: discussion with patient To update the patient's code status, place a code status order. Do not modify or discontinue any currently active code status orders. Full Code - Default 11/10/2022 2:12 PM 11/10/2022 3:35 P M This is order is used when code status has not been discussed with the patient, or code status is otherwise unknown/unconfirmed To update the patient's code status, place a code status order. Do not modify or discontinue any currently active code status orders. Latest Code Status on File Code Status Date Activated Date Inactivated Comments Full Code - Default 11/11/2022 6:03 PM 11/21/2022 5:56 P M This is order is used when code status has not been discussed with the patient, or code status is otherwise unknown/unconfirmed To update the patient's code status, place a code status order. Do not modify or discontinue any currently active code status orders. Documents on File Type Date Recorded Patient Atm Technician Expl anation Advance Directives and Livin g Will 11/23/2022 9:16 AM Latest Code Status on File Code Status Date Activated Date Inactivated Comments Full Code - Default 12/02/2022 12:01 AM Thi s is order is used when code status has not been discussed with the patient, or code status is otherwise unknown/unconfirmed To update the patient's code status, place a code status order. Do not modify or discontinue any currently active code status orders. Code Status History Code Status Date Activated Date Inactivated Comments Full Code - Default 11/11/2022 6:03 PM 11/21/2022 5:56 P M This is order is used when code status has not been discussed with the patient, or code status is otherwise unknown/unconfirmed To update the patient's code status, place a code status order. Do not modify or discontinue any currently active code status orders. Full Code 11/10/2022 3:35 PM 11/11/2022 6:03 PM This code status was ascertained in the following way: Code status discussion: discussion with patient To update the patient's code status, place a code status order. Do not modify or discontinue any currently active code status orders. Full Code - Default 11/10/2022 2:12 PM 11/10/2022 3:35 P M This is order is used when code status has not been discussed with the patient, or code status is otherwise unknown/unconfirmed To update the patient's code status, place a code status order. Do not modify or discontinue any currently active code status orders. Latest Code Status on File Code Status Date Activated Date Inactivated Comments Full Code - Default 12/02/2022 12:01 AM 12/09/2022 6:13 P M This is order is used when code status has not been discussed with the patient, or code status is otherwise unknown/unconfirmed To update the patient's code status, place a code status order. Do not modify or discontinue any currently active code status orders. Healthcare Agents on File Name Relationship Healthcare Agent Relationswy p Communication Coty Pool [facility] Care Agent Documents on File Type Date Recorded Patient Atm Technician Expl anation Advance Directives and Livin g Will 11/23/2022 9:16 AM Latest Code Status on File Code Status Date Activated Date Inactivated Comments Full Code - Default 12/02/2022 12:01 AM 12/09/2022 6:13 P M This is order is used when code status has not been discussed with the patient, or code status is otherwise unknown/unconfirmed To update the patient's code status, place a code status order. Do not modify or discontinue any currently active code status orders. Code Status History Code Status Date Activated Date Inactivated Comments Full Code - Default 11/11/2022 6:03 PM 11/21/2022 5:56 P M This is order is used when code status has not been discussed with the patient, or code status is otherwise unknown/unconfirmed To update the patient's code status, place a code status order. Do not modify or discontinue any currently active code status orders. Full Code 11/10/2022 3:35 PM 11/11/2022 6:03 PM This code status was ascertained in the following way: Code status discussion: discussion with patient To update the patient's code status, place a code status order. Do not modify or discontinue any currently active code status orders. Full Code - Default 11/10/2022 2:12 PM 11/10/2022 3:35 P M This is order is used when code status has not been discussed with the patient, or code status is otherwise unknown/unconfirmed To update the patient's code status, place a code status order. Do not modify or discontinue any currently active code status orders. Healthcare Agents on File Name Relationship Healthcare Agent Relationshi p Communication Ctoy Lam [facility] Care Agent Latest Code Status on File Code Status Date Activated Date Inactivated Comments Full Code - Default 12/18/2022 12:16 AM 12/19/2022 6:45 PM This is order is used when code status has not been discussed with the patient, or code status is otherwise unknown/unconfirmed To update the patient's code status, place a code status order. Do not modify or discontinue any currently active code status orders. Code Status History Code Status Date Activated Date Inactivated Comments Full Code - Default 12/02/2022 12:01 AM 12/09/2022 6:13 P M This is order is used when code status has not been discussed with the patient, or code status is otherwise unknown/unconfirmed To update the patient's code status, place a code status order. Do not modify or discontinue any currently active code status orders. Full Code - Default 11/11/2022 6:03 PM 11/21/2022 5:56 P M This is order is used when code status has not been discussed with the patient, or code status is otherwise unknown/unconfirmed To update the patient's code status, place a code status order. Do not modify or discontinue any currently active code status orders. Full Code 11/10/2022 3:35 PM 11/11/2022 6:03 PM This code status was ascertained in the following way: Code status discussion: discussion with patient To update the patient's code status, place a code status order. Do not modify or discontinue any currently active code status orders. Full Code - Default 11/10/2022 2:12 PM 11/10/2022 3:35 P M This is order is used when code status has not been discussed with the patient, or code status is otherwise unknown/unconfirmed To update the patient's code status, place a code status order. Do not modify or discontinue any currently active code status orders. Healthcare Agents on File Name Relationship Healthcare Agent Relationshi p Communication [facility] Care Agent 89 (Mobile) Healthcare Agents on File Name Relationship Healthcare Agent Relationshi p Communication Coty Lam Health Care Agent [id number] 89 (Mobile) Healthcare Agents on File Name Relationship Healthcare Agent Relationshi p Communication Coty Lam [facility] Care Agent 89 (Mobile) Healthcare Agents on File Name Relationship Healthcare Agent Relationshi p Communication Coty Lam [facility] Care Agent 89 (Mobile) Healthcare Agents on File Name Relationship Healthcare Agent Relationshi p Communication Coty Lam [facility] Care Agent 89 (Mobile) Latest Code Status on File Code Status Date Activated Date Inactivated Comments Full Code - Default 12/18/2022 12:16 AM 12/19/2022 6:45 PM This is order is used when code status has not been discussed with the patient, or code status is otherwise unknown/unconfirmed To update the patient's code status, place a code status order. Do not modify or discontinue any currently active code status orders. Code Status History Code Status Date Activated Date Inactivated Comments Full Code - Default 12/02/2022 12:01 AM 12/09/2022 6:13 P M This is order is used when code status has not been discussed with the patient, or code status is otherwise unknown/unconfirmed To update the patient's code status, place a code status order. Do not modify or discontinue any currently active code status orders. Full Code - Default 11/11/2022 6:03 PM 11/21/2022 5:56 P M This is order is used when code status has not been discussed with the patient, or code status is otherwise unknown/unconfirmed To update the patient's code status, place a code status order. Do not modify or discontinue any currently active code status orders. Full Code 11/10/2022 3:35 PM 11/11/2022 6:03 PM This code status was ascertained in the following way: Code status discussion: discussion with patient To update the patient's code status, place a code status order. Do not modify or discontinue any currently active code status orders. Full Code - Default 11/10/2022 2:12 PM 11/10/2022 3:35 P M This is order is used when code status has not been discussed with the patient, or code status is otherwise unknown/unconfirmed To update the patient's code status, place a code status order. Do not modify or discontinue any currently active code status orders. Healthcare Agents on File Name Relationship Healthcare Agent [facility] Communication Coty Lam [facility] Agent Latest Code Status on File Code Status Date Activated Date Inactivated Comments Full Code - Default 01/29/2023 11:51 AM 01/30/2023 3:18 AM This is order is used when code status has not been discussed with the patient, or code status is otherwise unknown/unconfirmed To update the patient's code status, place a code status order. Do not modify or discontinue any currently active code status orders. Code Status History Code Status Date Activated Date Inactivated Comments Full Code - Default 12/18/2022 12:16 AM 12/19/2022 6:45 PM This is order is used when code status has not been discussed with the patient, or code status is otherwise unknown/unconfirmed To update the patient's code status, place a code status order. Do not modify or discontinue any currently active code status orders. Full Code - Default 12/02/2022 12:01 AM 12/09/2022 6:13 P M This is order is used when code status has not been discussed with the patient, or code status is otherwise unknown/unconfirmed To update the patient's code status, place a code status order. Do not modify or discontinue any currently active code status orders. Full Code - Default 11/11/2022 6:03 PM 11/21/2022 5:56 P M This is order is used when code status has not been discussed with the patient, or code status is otherwise unknown/unconfirmed To update the patient's code status, place a code status order. Do not modify or discontinue any currently active code status orders. Full Code 11/10/2022 3:35 PM 11/11/2022 6:03 PM This code status was ascertained in the following way: Code status discussion: discussion with patient To update the patient's code status, place a code status order. Do not modify or discontinue any currently active code status orders. Healthcare Agents on File Name Relationship Healthcare Agent Relationswy p Communication Coty Lam [facility] Care Agent Healthcare Agents on File Name Relationship Healthcare Agent Relationshi p Communication Coty Lam [facility] Care Agent Latest Code Status on File Code Status Date Activated Date Inactivated Comments Full Code - Default 01/29/2023 11:51 AM 01/30/2023 3:18 AM This is order is used when code status has not been discussed with the patient, or code status is otherwise unknown/unconfirmed To update the patient's code status, place a code status order. Do not modify or discontinue any currently active code status orders. Code Status History Code Status Date Activated Date Inactivated Comments Full Code - Default 12/18/2022 12:16 AM 12/19/2022 6:45 PM This is order is used when code status has not been discussed with the patient, or code status is otherwise unknown/unconfirmed To update the patient's code status, place a code status order. Do not modify or discontinue any currently active code status orders. Full Code - Default 12/02/2022 12:01 AM 12/09/2022 6:13 P M This is order is used when code status has not been discussed with the patient, or code status is otherwise unknown/unconfirmed To update the patient's code status, place a code status order. Do not modify or discontinue any currently active code status orders. Full Code - Default 11/11/2022 6:03 PM 11/21/2022 5:56 P M This is order is used when code status has not been discussed with the patient, or code status is otherwise unknown/unconfirmed To update the patient's code status, place a code status order. Do not modify or discontinue any currently active code status orders. Full Code 11/10/2022 3:35 PM 11/11/2022 6:03 PM This code status was ascertained in the following way: Code status discussion: discussion with patient To update the patient's code status, place a code status order. Do not modify or discontinue any currently active code status orders. Documents on File Type Date Recorded Patient Atm Technician Expl anation [facility] Power of Compatibility Test Engineer 11/17/2022 Advance Directive Response Recorded Date/ Time Advance Directives on File Yes Octob er 2022 1:18pm Living Will Yes July 12 1:18pm Power of Compatibility Test Engineer Yes 2023 1:18pm Advance Directive Response Recorded Date/ Time Advance Directives on File Yes Octob 2022 1:18pm Name of Medical Power of Compatibility Test Engineer coty pool July 17, 2023 3:54am Living Will No July 17 3:54am Power of Compatibility Test Engineer Yes July 17, 2023 3:54am Advance Directive Response Recorded Date/ Time Advance Directives on File No 2022 11:30am Name of Medical Power of Compatibility Test Engineer Coty juan August 04, 2023 11:30am Advance Directives Yes August 04, 2023 11:30am Living Will No August 05 1:58pm Power of Compatibility Test Engineer Yes August 04, 2023 11:30am Name of Medical Power of Compatibility Test Engineer coty pool July 17, 2023 2:54am Advance Directive Response Recorded Date/ Time Advance Directives on File No 2022 11:30am Name of Medical Power of Compatibility Test Engineer Coty juan August 04, 2023 11:30am Advance Directives Yes August 04, 2023 11:30am Living Will Yes August 04 11:30am Power of Compatibility Test Engineer Yes August 04, 2023 11:30am Name of Medical Power of Compatibility Test Engineer coty pool July 17, 2023 2:54am Advance Directive Response Recorded Date/ Time Advance Directives on File No Decem 2022 12:00pm Name of Medical Power of Compatibility Test Engineer Coty juan September 01, 2023 12:00pm Advance Directives Yes September 01, 2023 12:00pm Living Will Yes September 01 12:00pm Power of Compatibility Test Engineer Yes September 01, 2023 12:00pm Name of Medical Power of Compatibility Test Engineer coty pool July 17, 2023 2:54am Advance Directive Response Recorded Date/ Time Advance Directives on File No Sander 2023 2:24pm Name of Medical Power of Compatibility Test Engineer Coty juan September 29, 2023 2:24pm Advance Directives Yes September 29, 2023 2:24pm Living Will No September 29 2:24pm Power of Compatibility Test Engineer Yes September 29 024 2:24pm Name of Medical Power of Compatibility Test Engineer coty pool July 17, 2023 2:54am Advance Directive Response Recorded Date/ Time Advance Directives on File No 2023 2:43pm Name of Medical Power of Compatibility Test Engineer Coty juan November 24, 2023 2:43pm Advance Directives Yes October 2:43pm Living Will No November 24 024 2:43pm Power of Compatibility Test Engineer Yes November 24, 2023 2:43pm Advance Directive Response Recorded Date/ Time Advance Directives on File No 2023 3:43pm Name of Medical Power of Compatibility Test Engineer Coty juan November 24, 2023 3:43pm Advance Directives Yes October 3:43pm Living Will No November 24 024 3:43pm Power of Compatibility Test Engineer Yes November 24, 2023 3:43pm Advance Directive Response Recorded Date/ Time Advance Directives on File No December 22, 2023 2:40pm Name of Medical Power of Compatibility Test Engineer Coty juan December 22, 2023 2:40pm Advance Directives Yes December 21 024 2:40pm Living Will No December 22, 2023 2:40pm Power of Compatibility Test Engineer Yes December 21 2:40pm Advance Directive Response Recorded Date/ Time Advance Directives on File No January 19, 2024 2:29pm Name of Medical Power of Compatibility Test Engineer Coty juan January 19, 2024 2:29pm Advance Directives Yes January 18 024 2:29pm Living Will No January 19, 2024 2:29pm Power of Compatibility Test Engineer Yes January 18 2:29pm Documents on File Type Date Recorded Patient Atm Technician Expl anation Power of Compatibility Test Engineer 03/29/2024 3:57 PM Power of Compatibility Test Engineer Advance Directive Response Recorded Date/ Time Advance Directives on File No 2024 4:39pm Living Will No November 09 025 4:39pm Power of Compatibility Test Engineer Yes November 09, 2024 4:39pm Name of Medical Power of Compatibility Test Engineer Coty juan November 09, 2024 4:39pm Advance Directives Yes October 4:39pm Living Will Yes July 11 11:04am Power of Compatibility Test Engineer Yes July 11, 2024 11:04am Name of Medical Power of Compatibility Test Engineer narcisa Connolly saritanereyda July 11, 2024 11:04am Living Will No October 02 8:18pm Power of Compatibility Test Engineer No October 02 8:18pm Advance Directive Response Recorded Date/ Time Advance Directives on File No December 07, 2024 3:48pm Living Will No December 07, 2024 3:48pm Do you have a Healthcare Pow er of Compatibility Test Engineer? Yes December 07, 2024 3:48pm Name of Medical Power of Compatibility Test Engineer Coty alaniz yessica December 07, 2024 3:48pm Advance Directives Yes December 07 025 3:48pm Living Will No October 02 8:18pm Do you have a Healthcare Pow er of Compatibility Test Engineer? No October 02, 2024 8:18pm Advance Directive Response Recorded Date/ Time Advance Directives on File No January 04, 2025 3:10pm Living Will No January 04, 2025 3:10pm Do you have a Healthcare Pow er of Compatibility Test Engineer? Yes January 04, 2025 3:10pm Name of Medical Power of Compatibility Test Engineer Coty alaniz saritanereyda January 04, 2025 3:10pm Advance Directives Yes January 04 3:10pm Living Will No October 02 8:18pm Do you have a Healthcare Pow er of Compatibility Test Engineer? No October 02, 2024 8:18pm Advance Directive Response Recorded Date/ Time Advance Directives on File No January 04, 2025 3:10pm Living Will No January 04, 2025 3:10pm Do you have a Healthcare Pow er of Compatibility Test Engineer? Yes January 04, 2025 3:10pm Name of Medical Power of Compatibility Test Engineer Coty alaniz yessica January 04, 2025 3:10pm Advance Directives Yes January 04 3:10pm Do you have a Healthcare Pow er of Compatibility Test Engineer? Yes January 31, 2025 5:41pm Name of Medical Power of Compatibility Test Engineer coty January 31, 2025 5:41pm Advance Directive Response Recorded Date/ Time Advance Directives on File No February 012024 2:45pm Living Will No February 01, 2025 2: 45pm Do you have a Healthcare Power of Compatibility Test Engineer? Yes February 01, 2025 2:45pm Name of Medical Power of Compatibility Test Engineer Coty PoolLupe narcisa juan February 01, 2025 2:45pm Advance Directives Yes February 01, 2025 2:45pm Do you have a Healthcare Power of Compatibility Test Engineer? Yes January 31, 2025 5:41pm Name of Medical Power of Compatibility Test Engineer coty January 31, 2025 5:41pm Reason for Referral Specialty Diagnoses / Procedures Referred By Contac t Referred To Contact Diagnoses Vitamin D deficiency, unspecified Salena Flores NP [address] [address] Referral ID Status Reason Start Date Expiration Date V isits Requested Visits Authorized [id number] Authorized 10/09/2022 09/26/2039 1 1 Specialty Diagnoses / Procedures Referred By Contac t Referred To Contact Physical Therapy Diagnoses Left shoulder pain, unspecified chronicity Upper back pain Salena Flores, TIP [address] [address] Referral ID Status Reason Start Date Expiration Date Visits Requested Visits Authorized [id number] Authorized Specialty Services Required 10/09/2022 04/07/2023 1 1 Specialty Diagnoses / Procedures Referred By Contac t Referred To Contact Radiation Oncology Diagnoses Multiple myeloma not having achieved remission (CMS/HCC) Procedures Rad Onc Treatment Planning Simulation Emanuel Guerra MD [address] [place] [address] [address] [place] [address] Referral ID Status Reason Start Date Expiration Date V isits Requested Visits Authorized [id number] Authorized 11/17/2022 05/29/2023 11 11 Specialty Diagnoses / Procedures Referred By Contac t Referred To Contact Radiology Diagnoses Multiple myeloma not having achieved remission (CMS/HCC) 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) Cord compression (CMS/HCC) Procedures CT Bx and Asp Bone Marrow Nia Gaines MD [address] [place] [address] [facility] [place] Referral ID Status Reason Start Date Expiration Date V isits Requested Visits Authorized [id number] Authorized 01/20/2023 07/19/2023 1 1 Specialty Diagnoses / Procedures Referred By Contac t Referred To Contact Radiology Diagnoses Multiple myeloma not having achieved remission (CMS/HCC) Procedures IR Tunneled CVAD Cmplt Replacement w Subcutaneous [place] Solomon MD [address] [facility] [address] [place] [address] [facility] [place] Referral ID Status Reason Start Date Expiration Date V isits Requested Visits Authorized [id number] Pending Review 02/03/2023 02/03/2024 1 1 Chief Complaint and Reason for Visit Chief Complaint [facility] Amb Documentation NEW - MULTIPLE MYELOMA (TRANSFER OF CARE) [facility] Reason for Visit Anemia DVT (deep venous thrombosis) Multiple myeloma Paraplegia Chief Complaint [facility] Amb Documentation NEW - MULTIPLE MYELOMA (TRANSFER OF CARE) [facility] urinary retention Reason for Visit Anemia DVT (deep venous thrombosis) Multiple myeloma Paraplegia Chief Complaint [facility] Amb Documentation NEW - MULTIPLE MYELOMA (TRANSFER OF CARE) urinary retention MULTIPLE MYELOMA 4WKS [facility]S [facility] Amb Documentation LABWORK Reason for Visit Anemia DVT (deep venous thrombosis) Multiple myeloma Paraplegia Anemia DVT (deep venous thrombosis) Multiple myeloma Paraplegia Chief Complaint [facility] Amb Documentation NEW - MULTIPLE MYELOMA (TRANSFER OF CARE) urinary retention MULTIPLE MYELOMA 4WKS [facility] Amb Documentation LABWORK WOUND WOUND LABWORK Reason for Visit Anemia DVT (deep venous thrombosis) Multiple myeloma Paraplegia Anemia DVT (deep venous thrombosis) Multiple myeloma Paraplegia History of radiation therapy Non-healing surgical wound Multiple myeloma Paraplegia Chief Complaint [facility] Amb Documentation NEW - MULTIPLE MYELOMA (TRANSFER OF CARE) urinary retention MULTIPLE MYELOMA 4W[facility] Amb Documentation LABWORK WOUND LABWORK WOUND WOUND Reason for Visit Anemia DVT (deep venous thrombosis) Multiple myeloma Paraplegia Anemia DVT (deep venous thrombosis) Multiple myeloma Paraplegia History of radiation therapy Non-healing surgical wound Multiple myeloma Paraplegia Chief Complaint [facility] Amb Documentation NEW - MULTIPLE MYELOMA (TRANSFER OF CARE) urinary retention MULTIPLE MYELOMA 4WKS [facility] Amb Documentation LABWORK WOUND LABWORK WOUND WOUND [facility] 4 WKS - [facility]S - [facility] Reason for Visit Anemia DVT (deep venous thrombosis) Multiple myeloma Paraplegia Anemia DVT (deep venous thrombosis) Multiple myeloma Paraplegia History of radiation therapy Non-healing surgical wound Multiple myeloma Paraplegia Anemia DVT (deep venous thrombosis) Multiple myeloma Paraplegia Chief Complaint [facility] Amb Documentation NEW - MULTIPLE MYELOMA (TRANSFER OF CARE) urinary retention MULTIPLE MYELOMA 4WKS [facility] Amb Documentation LABWORK WOUND LABWORK WOUND WOUND [facility] 4 WKS - [facility] - [facility] WOUND WOUND WOUND 4 WKS - [facility]S - [facility] WOUND [facility] WOUND WOUND Reason for Visit Anemia DVT (deep venous thrombosis) Multiple myeloma Paraplegia Anemia DVT (deep venous thrombosis) Multiple myeloma Paraplegia History of radiation therapy Non-healing surgical wound Multiple myeloma Paraplegia Anemia DVT (deep venous thrombosis) Multiple myeloma Paraplegia History of radiation therapy Non-healing surgical wound Multiple myeloma Paraplegia Anemia DVT (deep venous thrombosis) Multiple myeloma Paraplegia History of radiation therapy Non-healing surgical wound Multiple myeloma Paraplegia Chief Complaint [facility] Amb Documentation NEW - MULTIPLE MYELOMA (TRANSFER OF CARE) urinary retention MULTIPLE MYELOMA 4WKS [facility] Amb Documentation LABWORK WOUND LABWORK WOUND WOUND [facility] 4 WKS - [facility] - [facility] WOUND WOUND WOUND 4 WKS - LABS - [facility] WOUND [facility] WOUND WOUND 4WKS [facility] Reason for Visit Anemia DVT (deep venous thrombosis) Multiple myeloma Paraplegia Anemia DVT (deep venous thrombosis) Multiple myeloma Paraplegia History of radiation therapy Non-healing surgical wound Multiple myeloma Paraplegia Anemia DVT (deep venous thrombosis) Multiple myeloma Paraplegia History of radiation therapy Non-healing surgical wound Multiple myeloma Paraplegia Anemia DVT (deep venous thrombosis) Multiple myeloma Paraplegia History of radiation therapy Non-healing surgical wound Multiple myeloma Paraplegia Anemia DVT (deep venous thrombosis) Multiple myeloma Paraplegia Chief Complaint MULTIPLE MYELOMA 4WKS [facility]S [facility] Amb Documentation LABWORK WOUND LABWORK WOUND WOUND [facility] 4 WKS - [facility] - [facility] WOUND WOUND WOUND 4 WKS - LABS - [facility] WOUND [facility] WOUND WOUND 4[facility] WOUND WOUND 4 WKS - [facility] - [facility] WOUND WOUND Reason for Visit Anemia DVT (deep venous thrombosis) Multiple myeloma Paraplegia History of radiation therapy Non-healing surgical wound Multiple myeloma Paraplegia Anemia DVT (deep venous thrombosis) Multiple myeloma Paraplegia History of radiation therapy Non-healing surgical wound Multiple myeloma Paraplegia Anemia DVT (deep venous thrombosis) Multiple myeloma Paraplegia History of radiation therapy Non-healing surgical wound Multiple myeloma Paraplegia Anemia DVT (deep venous thrombosis) Multiple myeloma Paraplegia Anemia DVT (deep venous thrombosis) Multiple myeloma History of radiation therapy Non-healing surgical wound Multiple myeloma Paraplegia Chief Complaint WOUND WOUND [facility] 4 WKS - [facility]S - [facility] WOUND WOUND WOUND 4 WKS - LABS - [facility] WOUND [facility] LAB[facility] WOUND WOUND 4WKS [facility] WOUND WOUND 4 WKS - [facility] - [facility] WOUND WOUND WOUND WOUND LABWORK Reason for Visit History of radiation therapy Non-healing surgical wound Multiple myeloma Paraplegia Anemia DVT (deep venous thrombosis) Multiple myeloma Paraplegia History of radiation therapy Non-healing surgical wound Multiple myeloma Paraplegia Anemia DVT (deep venous thrombosis) Multiple myeloma Paraplegia History of radiation therapy Non-healing surgical wound Multiple myeloma Paraplegia Anemia DVT (deep venous thrombosis) Multiple myeloma Paraplegia Anemia DVT (deep venous thrombosis) Multiple myeloma History of radiation therapy Non-healing surgical wound Multiple myeloma Paraplegia History of radiation therapy Non-healing surgical wound Multiple myeloma Paraplegia Chief Complaint [facility] K 4 WKS - [facility]S - [facility] WOUND WOUND WOUND 4 WKS - LABS - [facility] WOUND [facility] LAB[facility] WOUND WOUND 4WKS [facility] WOUND WOUND 4 WKS - [facility] - [facility] WOUND WOUND WOUND LABWORK WOUND WOUND 4 WKS - [facility] - [facility] Reason for Visit Anemia DVT (deep venous thrombosis) Multiple myeloma Paraplegia History of radiation therapy Non-healing surgical wound Multiple myeloma Paraplegia Anemia DVT (deep venous thrombosis) Multiple myeloma Paraplegia History of radiation therapy Non-healing surgical wound Multiple myeloma Paraplegia Anemia DVT (deep venous thrombosis) Multiple myeloma Paraplegia Anemia DVT (deep venous thrombosis) Multiple myeloma History of radiation therapy Non-healing surgical wound Multiple myeloma Paraplegia History of radiation therapy Non-healing surgical wound Late effect of radiation Multiple myeloma [id number] Paraplegia Personal history of Methicillin resistant Staphylococcus aureus infection Soft tissue radionecrosis Anemia DVT (deep venous thrombosis) Multiple myeloma Paraplegia Chief Complaint 4 WKS - LABS - [facility] WOUND [facility] WOUND WOUND 4[facility] WOUND WOUND 4 WKS - [facility] - [facility] WOUND WOUND WOUND LABWORK WOUND WOUND 4 WKS - [facility] - [facility] WOUND [facility] WORK NON HEALING WOUND NON HEALING WOUND 4 WKS - [facility] - [facility] Reason for Visit Anemia DVT (deep venous thrombosis) Multiple myeloma Paraplegia History of radiation therapy Non-healing surgical wound Multiple myeloma Paraplegia Anemia DVT (deep venous thrombosis) Multiple myeloma Paraplegia Anemia DVT (deep venous thrombosis) Multiple myeloma History of radiation therapy Non-healing surgical wound Multiple myeloma Paraplegia History of radiation therapy Non-healing surgical wound Late effect of radiation Multiple myeloma [id number] Paraplegia Personal history of Methicillin resistant Staphylococcus aureus infection Soft tissue radionecrosis Anemia DVT (deep venous thrombosis) Multiple myeloma Paraplegia History of radiation therapy Non-healing surgical wound Multiple myeloma Paraplegia Anemia DVT (deep venous thrombosis) Multiple myeloma Paraplegia Chief Complaint Admit Date INFECTED WOUNDS/TRANSAMINITIS July 102023 5:05pm INFECTED WOUNDS/TRANSAMINITIS July 282023 7:14am INFECTED WOUNDS/TRANSAMINITIS July 282023 7:48am F/U - LABS - [facility] August 17, 2024 8:35am FOLLOW UP August 31, 2024 1 :21pm 4 WKS - LABS - [facility] September 13, 2024 12:33pm October 02, 2024 6: 09pm 4 WKS - LABS - [facility] October 12, 2024 1 :40pm LABWORK October 20, 2024 2 :00pm 2 M F/U November 02, 2024 1 :26pm 4 WKS - LABS - [facility]/ZOMETA October 1:08pm LUMBAR SPINE November 21, 2024 2:00pm room 1 November 21, 2024 2:23pm 4 WKS - LABS - [facility] December 07, 2024 2:0 0pm Darzalex FastPro December 07, 2024 2:3 0pm Reason for Visit Admit Date Debility July 10, 2024 5 :05pm Essential (primary) hypertension July 10, 2024 5:05pm GERD (gastroesophageal reflux disease) O ctober 2023 5:05pm History of radiation therapy June 5:05pm Insomnia July 10, 2024 5 :05pm Muscle spasm July 10, 2024 5 :05pm Neuropathic pain July 10, 2024 5 :05pm Open wound of tissue overlying spine Oct chris 2023 5:05pm Multiple myeloma July 10, 2024 5 :05pm 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 July 10, 2024 5:05pm Osteomyelitis of thoracic spine July 10, 2024 5:05pm Paraplegia July 10, 2024 5 :05pm Radiation adverse effect July 10, 2 024 5:05pm Anemia August 17, 2024 8:35am DVT (deep venous thrombosis) August 172023 8:35am Multiple myeloma August 17, 2024 8:35am History of radiation therapy August 1:21pm Late effect of radiation August 31, 2 024 1:21pm Anemia September 13, 2024 12:33pm DVT (deep venous thrombosis) September 132023 12:33pm Multiple myeloma September 13, 2024 12:33pm Paraplegia September 13, 2024 12:33pm Anemia October 12, 2024 1 :40pm DVT (deep venous thrombosis) September 1:40pm Multiple myeloma October 12, 2024 1 :40pm Paraplegia October 12, 2024 1 :40pm Open wound of tissue overlying spine Feb ruary 2024 1:26pm Anemia November 09, 2024 1:08pm DVT (deep venous thrombosis) November 092024 1:08pm Multiple myeloma November 09, 2024 1:08pm Degenerative disc disease, lumbar Februa 2024 2:00pm Chief Complaint Admit Date FOLLOW UP August 31, 2024 1 :21pm 4 WKS - LABS - [facility] September 13, 2024 12:33pm October 02, 2024 6: 09pm 4 WKS - LABS - [facility] October 12, 2024 1 :40pm LABWORK October 20, 2024 2 :00pm 2 M F/U November 02, 2024 1 :26pm 4 WKS - LABS - [facility]/ZOMETA October 1:08pm LUMBAR SPINE November 21, 2024 2:00pm room 1 November 21, 2024 2:23pm 4 WKS - LABS - [facility] December 07, 2024 2:0 0pm Darzalex FastPro December 07, 2024 2:3 0pm [facility] December 11, 2024 4 :00am Reason for Visit Admit Date History of radiation therapy August 1:21pm Late effect of radiation August 31, 024 1:21pm Anemia September 13, 2024 12:33pm DVT (deep venous thrombosis) September 132023 12:33pm Multiple myeloma September 13, 2024 12:33pm Paraplegia September 13, 2024 12:33pm Anemia October 12, 2024 1 :40pm DVT (deep venous thrombosis) September 1:40pm Multiple myeloma October 12, 2024 1 :40pm Paraplegia October 12, 2024 1 :40pm Open wound of tissue overlying spine Fe ruary 2024 1:26pm Anemia November 09, 2024 1:08pm DVT (deep venous thrombosis) November 092024 1:08pm Multiple myeloma November 09, 2024 1:08pm Degenerative disc disease, lumbar Februa 2024 2:00pm Anemia December 07, 2024 2:0 0pm DVT (deep venous thrombosis) December 07, 2024 2:00pm Multiple myeloma December 07, 2024 2:0 0pm Chief Complaint Admit Date 4 WKS - LABS - [facility] September 13, 2024 12:33pm October 02, 2024 6: 09pm 4 WKS - LABS - [facility] October 12, 2024 1 :40pm LABWORK October 20, 2024 2 :00pm 2 M F/U November 02, 2024 1 :26pm 4 WKS - LABS - [facility]/ZOMETA October 1:08pm LUMBAR SPINE November 21, 2024 2:00pm room 1 November 21, 2024 2:23pm 4 WKS - LABS - [facility] December 07, 2024 2:0 0pm [facility] December 11, 2024 4 :00am 4 WKS - LABS - [facility] January 04, 2025 1:0 1pm Darzalex FastPro January 04, 2025 1:1 5pm EORDERS January 04, 2025 3:2 8pm Reason for Visit Admit Date Anemia September 13, 2024 12:33pm DVT (deep venous thrombosis) September 132023 12:33pm Multiple myeloma September 13, 2024 12:33pm Paraplegia September 13, 2024 12:33pm Anemia October 12, 2024 1 :40pm DVT (deep venous thrombosis) September 1:40pm Multiple myeloma October 12, 2024 1 :40pm Paraplegia October 12, 2024 1 :40pm Open wound of tissue overlying spine Oct 1:26pm Anemia November 09, 2024 1:08pm DVT (deep venous thrombosis) November 092024 1:08pm Multiple myeloma November 09, 2024 1:08pm Degenerative disc disease, lumbar Februa 2024 2:00pm Anemia December 07, 2024 2:0 0pm DVT (deep venous thrombosis) December 07, 2024 2:00pm Multiple myeloma December 07, 2024 2:0 0pm Abdominal bloating January 04, 2025 1:0 1pm Anemia January 04, 2025 1:0 1pm DVT (deep venous thrombosis) January 04, 2025 1:01pm Multiple myeloma January 04, 2025 1:0 1pm Chief Complaint Admit Date 4 WKS - LABS - [facility] October 12, 2024 1 :40pm LABWORK October 20, 2024 2 :00pm 2 M F/U November 02, 2024 1 :26pm 4 WKS - LABS - [facility]/ZOMETA October 1:08pm LUMBAR SPINE November 21, 2024 2:00pm room 1 November 21, 2024 2:23pm 4 WKS - LABS - [facility] December 07, 2024 2:0 0pm [facility] December 11, 2024 4 :00am 4 WKS - LABS - [facility] January 04, 2025 1:0 1pm zometa January 04, 2025 1:1 5pm EORDERS January 04, 2025 3:2 8pm abd pain, urinary symptoms January 31, 2025 4:05pm Reason for Visit Admit Date Anemia October 12, 2024 1 :40pm DVT (deep venous thrombosis) September 1:40pm Multiple myeloma October 12, 2024 1 :40pm Paraplegia October 12, 2024 1 :40pm Open wound of tissue overlying spine Feb ru2024 1:26pm Anemia November 09, 2024 1:08pm DVT (deep venous thrombosis) November 092024 1:08pm Multiple myeloma November 09, 2024 1:08pm Degenerative disc disease, lumbar Februa 2024 2:00pm Anemia December 07, 2024 2:0 0pm DVT (deep venous thrombosis) December 07, 2024 2:00pm Multiple myeloma December 07, 2024 2:0 0pm Abdominal bloating January 04, 2025 1:0 1pm Anemia January 04, 2025 1:0 1pm DVT (deep venous thrombosis) January 04, 2025 1:01pm Multiple myeloma January 04, 2025 1:0 1pm Chief Complaint Admit Date 4 WKS - LABS - [facility] October 12, 2024 1 :40pm LABWORK October 20, 2024 2 :00pm 2 M F/U November 02, 2024 1 :26pm 4 WKS - LABS - [facility]/ZOMETA October 1:08pm LUMBAR SPINE November 21, 2024 2:00pm room 1 November 21, 2024 2:23pm 4 WKS - LABS - [facility] December 07, 2024 2:0 0pm [facility] December 11, 2024 4 :00am 4 WKS - LABS - [facility] January 04, 2025 1:0 1pm EORDERS January 04, 2025 3:2 8pm [facility] January 11, 2025 5 :00am abd pain, urinary symptoms January 31, 2025 4:05pm 4 WKS - LABS - [facility]/ZOMETA February 01, 2025 12:37pm zometa February 01, 2025 12:45p m Reason for Visit Admit Date Anemia October 12, 2024 1 :40pm DVT (deep venous thrombosis) September 1:40pm Multiple myeloma October 12, 2024 1 :40pm Paraplegia October 12, 2024 1 :40pm Open wound of tissue overlying spine Feb ruary 2024 1:26pm Anemia November 09, 2024 1:08pm DVT (deep venous thrombosis) November 092024 1:08pm Multiple myeloma November 09, 2024 1:08pm Degenerative disc disease, lumbar Februa 2024 2:00pm Anemia December 07, 2024 2:0 0pm DVT (deep venous thrombosis) December 07, 2024 2:00pm Multiple myeloma December 07, 2024 2:0 0pm Abdominal bloating January 04, 2025 1:0 1pm Anemia January 04, 2025 1:0 1pm DVT (deep venous thrombosis) January 04, 2025 1:01pm Multiple myeloma January 04, 2025 1:0 1pm Anemia February 01, 2025 12:37p m DVT (deep venous thrombosis) February 01 12:37pm Multiple myeloma February 01, 2025 12:37p m Chief Complaint Admit Date 2 M F/U November 02, 2024 1 :26pm 4 WKS - LABS - [facility]/ZOMETA October 1:08pm LUMBAR SPINE November 21, 2024 2:00pm room 1 November 21, 2024 2:23pm 4 WKS - LABS - [facility] December 07, 2024 2:0 0pm [facility] December 11, 2024 4 :00am 4 WKS - LABS - [facility] January 04, 2025 1:0 1pm EORDERS January 04, 2025 3:2 8pm [facility] January 11, 2025 5 :00am abd pain, urinary symptoms January 31, 2025 4:05pm 4 WKS - LABS - [facility]/ZOMETA February 01, 2025 12:37pm zometa February 01, 2025 12:45p m [facility] WORK February 20, 2025 4:0 0am Reason for Visit Admit Date Open wound of tissue overlying spine Feb ruary 2024 1:26pm Anemia November 09, 2024 1:08pm DVT (deep venous thrombosis) November 092024 1:08pm Multiple myeloma November 09, 2024 1:08pm Degenerative disc disease, lumbar Februa 2024 2:00pm Anemia December 07, 2024 2:0 0pm DVT (deep venous thrombosis) December 07, 2024 2:00pm Multiple myeloma December 07, 2024 2:0 0pm Abdominal bloating January 04, 2025 1:0 1pm Anemia January 04, 2025 1:0 1pm DVT (deep venous thrombosis) January 04, 2025 1:01pm Multiple myeloma January 04, 2025 1:0 1pm Anemia February 01, 2025 12:37p m DVT (deep venous thrombosis) February 01 12:37pm Multiple myeloma February 01, 2025 12:37p m Additional Source Comments (unrecognized sect ion and content) No Status Records FoundNo Status Records FoundNo Status Records FoundNo Status Records FoundNo Status Records FoundNo Status Records FoundNo Status Records FoundNo Status Records FoundNo Status Records FoundNo Status Records FoundNo Status Records Found INFORMATION SOURCE (unrecogn ized section and content) DATE CREATED AUTHOR 01/24/2021 [facility] DATE CREATED AUTHOR AUTHOR'S ORGANIZ ATION 08/18/2022 [facility] DATE CREATED AUTHOR AUTHOR'S ORGANIZ ATION 11/29/2022 [facility] DATE CREATED AUTHOR AUTHOR'S ORGANIZ ATION 12/24/2022 [facility] DATE CREATED AUTHOR AUTHOR'S ORGANIZ ATION 01/27/2023 [facility] DATE CREATED AUTHOR AUTHOR'S ORGANIZ ATION 04/06/2023 [facility] DATE CREATED AUTHOR AUTHOR'S ORGANIZ ATION 07/10/2024 [facility] DATE CREATED AUTHOR AUTHOR'S ORGANIZ ATION 09/13/2024 [facility] DATE CREATED AUTHOR AUTHOR'S ORGANIZ ATION 11/12/2024 [facility] DATE CREATED AUTHOR AUTHOR'S ORGANIZ ATION 02/04/2025 [facility] DATE CREATED AUTHOR AUTHOR'S ORGANIZ ATION 02/25/2025 [facility] Reason for Visit (unrecogniz ed section and content) Reason Comments Follow-up general check up Reason Comments Med Refill Reason Onset Date Comments medication refill 09/16/2021 Reason Comments Immunizations Moderna COVID booste r Reason Comments Follow-up 6 month f/u Reason Comments Follow-up On acid reflux Reason Comments Back Pain Upper back and shoul ders. Reason Comments Back Pain Feels like it's buzz en worse since last appt. Pain is the worst in the mornings. Pain in shoulders over the weekend. Reason Comments Back Pain Still having the darin e back pain as last visit. Next step? Med seemed to help everything but one spot. Reason Onset Date Comments Referral 05/13/2022 Reason Comments Back Pain Upper back between s [facility] Specialty Diagnoses / Procedures Referred By Katelyn t Referred To Contact Neurosurgery Diagnoses Upper back pain Salena Flores NP [address] [facility] [address] [place] [address] [facility] Neurosurgery [facility] [address] [place] [phone] Referral ID Status Reason Start Date Expiration Date Visits Requested Visits Authorized [id number] Authorized Specialty Services Required 05/19/2022 11/15/2022 1 1 Reason Comments Follow-up 6 month follow up Reason Comments Immunizations Moderna Bivalent Pinedo ster Reason Comments Shoulder Pain Still with Left shou lder painGo over lab results Reason Comments Discuss back Still radiating into chest at times. Feels like he's taking too much Advil. Reason Onset Date Comments Med Refill 10/05/2022 Reason Comments Extremity Weakness Specialty Diagnoses / Procedures Referred By Contac t Referred To Contact Diagnoses Cord compression (CMS/HCC) Weakness Procedures Fahad Ireland MD [address] [facility] [address] [place] [address] [facility] [address] [place] [address] Referral ID Status Reason Start Date Expiration Date Visits Re quested Visits Authorized [id number] 1 1 Reason Comments Consult Spinal mets Reason Comments Post-op Problem Patient had back myles madhavi at [facility]. Facility attempted to take stables out today but felt wound did not appear to be healing appropriately and had a lot of drainage. Patient was advised to come to [facility] not [facility]. Specialty Diagnoses / Procedures Referred By Contac t Referred To Contact Diagnoses Infected wound Procedures na Blade Palm DO [address] [place] [id number] [facility] [address] [place] [address] Referral ID Status Reason Start Date Expiration Date Visits Re quested Visits Authorized [id number] 1 1 Reason Comments Post-op Problem States cervical fusi on in 10/[address] Tao. Has been having increased drainage from cervical incision for the last 2 weeks. Had an MRI that showed increased tunneling and drainage from incision Specialty Diagnoses / Procedures Referred By Contac t Referred To Contact Diagnoses Wound disruption Surgical site infection SURGICAL SITE WOUND TUNNELING Procedures Armand Gonsales DO [address] [place] [address] [facility] [address] [place] [address] Referral ID Status Reason Start Date Expiration Date Visits Re quested Visits Authorized [id number] 1 1 Reason Comments OTV spine Specialty Diagnoses / Procedures Referred By Contac t Referred To Contact Radiology Diagnoses Multiple myeloma not having achieved remission (CMS/HCC) 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) Cord compression (CMS/HCC) Procedures CT Bx and Asp Bone Marrow Nia Gaines MD [address] [place] [id number] [facility] [place] Referral ID Status Reason Start Date Expiration Date V isits Requested Visits Authorized [id number] Authorized 01/20/2023 07/19/2023 1 1 Reason Comments Follow-up Multiple myeloma Reason Comments Multiple Myeloma Reason Comments Wound Care Reason Comments Dressing Change Reason Comments Appointment Reason Comments Radiology US Specialty Diagnoses / Procedures Referred By Contac t Referred To Contact US IMAGING Diagnoses Benign prostatic hyperplasia with urinary retention Procedures US KIDNEY/BLADDER US RETROPERITONEAL REAL TIME W/IMAGE COMPLETE Ric Souza MD [address] [place] [address] Phone: tel: fax: [place] [address] Referral ID Status Reason Start Date Expiration Date V isits Requested Visits Authorized [id number] Closed Auto-Generate d Referral 11/10/2024 12/10/2025 1 1 Reason Comments Urinary Retention Reason Comments Benign prostatic hyperplasia with urinar y retention Reason Comments Cystoscopy-1 Ordered Prescriptions (unrec ognized section and content) Prescription Sig Dispensed Refills Start Date End Da te metoprolol tartrate (LOPRESSOR) 100 mg tabletIndications:Essentia l hypertension Take 1 tablet (100 mg total) by mouth 2 (two) times a day. 180 each 3 07/31/2021 07/31/2022 atorvastatin (LIPITOR) 10 mg tabletIndications:Mixed hyperlipidemia Take 1 tablet (10 mg total) by mouth 1 (one) time each day. 90 each 3 07/31/2021 07/31/2022 amLODIPine (NORVASC) 10 mg tabletIndications:Essentia l hypertension Take 1 tablet (10 mg total) by mouth 1 (one) time each day. 90 each 3 07/31/2021 07/31/2022 Prescription Sig Dispensed Refills Start Date End Da te levothyroxine (SYNTHROID, LEVOTHROID) 75 mcg tablet Take 1 tablet (75 mcg total) by mouth 1 (one) time each day before breakfast. 90 each 3 08/04/2021 08/04/2022 Prescription Sig Dispensed Refills Start Date End Da te levothyroxine (SYNTHROID, LEVOTHROID) 88 mcg tabletIndications:Hypothyr oidism, unspecified type Take 1 tablet (88 mcg total) by mouth 1 (one) time each day. 90 each 3 09/16/2021 09/16/2022 Prescription Sig Dispensed Refills Start Date End Da te omeprazole (PriLOSEC) [address] capsuleIndications:Chest discomfort Take 1 capsule (20 mg total) by mouth 1 (one) time each day. Do not crush or chew. 30 each 0 01/29/2022 02/28/2022 Prescription Sig Dispensed Refills Start Date End Da te omeprazole (PriLOSEC) [address] capsuleIndications:Chest discomfort Take 1 capsule (20 mg total) by mouth 1 (one) time each day. Do not crush or chew. 90 each 1 02/16/2022 08/15/2022 Prescription Sig Dispensed Refills Start Date End Da te cholecalciferol (VITAMIN D-3) 1,250 mcg (50,000 unit) capsuleIndications:Vitami n D deficiency, unspecified TAKE 1 CAPSULE BY MOUTH ONCE A WEEK WITH A MEAL 13 capsule 1 03/15/2022 Prescription Sig Dispensed Refills Start Date End Da te predniSONE (DELTASONE) 10 mg tablet Take 3 tablets (30 mg total) by mouth 1 (one) time each day for 3 days, THEN 2 tablets (20 mg total) 1 (one) time each day for 3 days, THEN 1 tablet (10 mg total) 1 (one) time each day for 3 days, THEN 0.5 tablets (5 mg total) 1 (one) time each day for 2 days. 19 each 0 04/29/2022 05/10/2022 Prescription Sig Dispensed Refills Start Date End Da te atorvastatin (LIPITOR) 10 mg tabletIndications:Mixed hyperlipidemia TAKE 1 TABLET BY MOUTH EVERY DAY 90 tablet 3 07/20/2022 metoprolol tartrate (LOPRESSOR) 100 mg tabletIndications:Essentia l hypertension TAKE 1 TABLET BY MOUTH TWICE A DAY 180 tablet 3 07/20/2022 amLODIPine (NORVASC) 10 mg tabletIndications:Essentia l hypertension TAKE 1 TABLET BY MOUTH EVERY DAY 90 tablet 3 07/20/2022 Prescription Sig Dispensed Refills Start Date End Da te omeprazole (PriLOSEC) [address] capsuleIndications:Chest discomfort TAKE 1 CAPSULE BY MOUTH 1 TIME EACH DAY. DO NOT CRUSH OR CHEW. 90 capsule 1 08/11/2022 Prescription Sig Dispensed Refills Start Date End Da te cholecalciferol (VITAMIN D-3) 1,250 mcg (50,000 unit) capsuleIndications:Vitam in D deficiency, unspecified Take 1 capsule (50,000 Units total) by mouth 1 (one) time per week. 12 capsule 2 10/09/2022 04/07/2023 ibuprofen (ADVIL,MOTRIN) 600 mg tabletIndications:Left shoulder pain, unspecified chronicity,Upper back pain Take 1 tablet (600 mg total) by mouth every 6 (six) hours if needed for mild pain (pain). 60 tablet 0 10/09/2022 12/08/2022 Prescription Sig Dispensed Refills Start Date End Da te traZODone (DESYREL) 50 mg tablet Take 1 tablet (50 mg total) by mouth at bedtime as needed for sleep. 0 11/21/2022 12/21/2022 melatonin 3 mg tablet Take 2 tablets (6 mg total) by mouth at bedtime. 0 11/21/2022 12/21/2022 senna (SENOKOT) 8.6 mg tablet Take 1 tablet (8.6 mg total) by mouth 2 (two) times a day. 60 each 0 11/17/2022 12/17/2022 dexAMETHasone (DECADRON) 2 mg tablet Take 2 tablets (4 mg total) by mouth 4 (four) times a day for 14 days. 112 each 0 11/17/2022 11/21/2022 Prescription Sig Dispensed Refills Start Date End Da te polyethylene glycol (MIRALAX) 17 gram packet Take 17 g by mouth 1 (one) time each day for 7 days. Can hold for loose stools. 119 g 0 12/10/2022 12/17/2022 senna-docusate (PERICOLACE) 8.6-50 mg per tablet Take 1 tablet by mouth 2 (two) times a day if needed for constipation. 0 12/07/2022 12/07/2023 enoxaparin (LOVENOX) 40 mg/0.4 mL syringe Inject 0.4 mL (40 mg total) under the skin 1 (one) time each day for 14 days. 0 12/08/2022 12/22/2022 oxyCODONE (OXY-IR) 5 mg immediate release capsule Take 1 capsule (5 mg total) by mouth every 6 (six) hours if needed for severe pain. Max Daily Amount: 20 mg 12 capsule 0 12/07/2022 Prescription Sig Dispensed Refills Start Date End Da te senna (SENOKOT) 8.6 mg tablet Take 1 tablet (8.6 mg total) by mouth 2 (two) times a day. 60 each 0 12/18/2022 01/17/2023 polyethylene glycol (MIRALAX) 17 gram packet Take 17 g by mouth 1 (one) time each day for 7 days. Can hold for loose stools. 119 g 0 12/18/2022 12/25/2022 oxyCODONE (OXY-IR) 5 mg immediate release capsule Take 1 capsule (5 mg total) by mouth every 6 (six) hours if needed for severe pain. Max Daily Amount: 20 mg 12 capsule 0 12/18/2022 Care Teams (unrecognized sec tion and content) Development Specialist Relationship Specialty Start Date End Date Salena Flores NP [address] [place] [phone] PCP - General Family Medicine 05/30/21 Development Specialist Relationship Specialty Start Date End Date Salena Flores NP [address] [place] [phone] PCP - General Family Medicine 05/30/21 Development Specialist Relationship Specialty Start Date End Date Salena Flores NP [address] [place] [phone] PCP - General Family Medicine 05/30/21 Development Specialist Relationship Specialty Start Date End Date Salena Flores NP [address] [place] [phone] PCP - General Family Medicine 05/30/21 Development Specialist Relationship Specialty Start Date End Date Salena Flores NP [address] [place] [phone] PCP - General Family Medicine 05/30/21 Development Specialist Relationship Specialty Start Date End Date Salena Flores NP [address] [place] [phone] PCP - General Family Medicine 05/30/21 Development Specialist Relationship Specialty Start Date End Date Salena Flores NP [address] [place] [phone] PCP - General Family Medicine 05/30/21 Development Specialist Relationship Specialty Start Date End Date Salena Flores, TIP [address] [place] [phone] PCP - General Family Medicine 05/30/21 Development Specialist Relationship Specialty Start Date End Date Salena Flores NP [address] [place] [phone] PCP - General Family Medicine 05/30/21 Development Specialist Relationship Specialty Start Date End Date Salena Flores NP [address] [place] [phone] PCP - General Family Medicine 05/30/21 Development Specialist Relationship Specialty Start Date End Date Salena Flores NP [address] [place] [phone] PCP - General Family Medicine 05/30/21 Development Specialist Relationship Specialty Start Date End Date Salena Flores NP [address] [place] [phone] PCP - General Family Medicine 05/30/21 Development Specialist Relationship Specialty Start Date End Date Salena Flores NP [address] [place] [phone] PCP - General Family Medicine 05/30/21 Development Specialist Relationship Specialty Start Date End Date Salena Flores NP [address] [phone] PCP - General Family Medicine 05/30/21 Development Specialist Relationship Specialty Start Date End Date Salena Flores NP [address] [place] [phone] PCP - General Family Medicine 05/30/21 Development Specialist Relationship Specialty Start Date End Date Salena Flores NP [address] [place] [phone] PCP - General Family Medicine 05/30/21 Development Specialist Relationship Specialty Start Date End Date Salena Flores NP [address] [place] [phone] PCP - General Family Medicine 05/30/21 Development Specialist Relationship Specialty Start Date End Date Salena Flores NP [address] [place] [phone] PCP - General Family Medicine 05/30/21 Development Specialist Relationship Specialty Start Date End Date Salena Flores NP [address] [place] [phone] PCP - General Family Medicine 05/30/21 Development Specialist Relationship Specialty Start Date End Date Salena Flores NP [address] [place] [phone] PCP - General Family Medicine 05/30/21 Development Specialist Relationship Specialty Start Date End Date Salena Flores NP [address] [place] [phone] PCP - General Family Medicine 05/30/21 Development Specialist Relationship Specialty Start Date End Date Salena Flores NP [address] [place] [phone] PCP - General Family Medicine 05/30/21 Development Specialist Relationship Specialty Start Date End Date Salena Flores NP [address] [place] [phone] PCP - General Family Medicine 05/30/21 Development Specialist Relationship Specialty Start Date End Date Salena Flores NP [address] [place] [phone] PCP - General Family Medicine 05/30/21 Development Specialist Relationship Specialty Start Date End Date Salena Flores NP [address] [place] [phone] PCP - General Family Medicine 05/30/21 Development Specialist Relationship Specialty Start Date End Date Salena Flores PUBLICITY EXPERT-LOCK TENDER [address] [place] [phone] PCP - General Certified Nurse Practitioner 01/06/23 Renuka Addison MD [address] [place] [address] Referring Provider Hematology 11/23/22 Taylor Jeff, rice milling supervisorFabrication Engineer Transplant 11/27/22 Gisel Wolf MD [address] [place] [address] Transplant Physician Transplant 11/27/22 Development Specialist Relationship Specialty Start Date End Date Salena Flores NP [address] [place] [phone] PCP - General Family Medicine 05/30/21 Development Specialist Relationship Specialty Start Date End Date Salena Flores NP [address] [place] [phone] PCP - General Family Medicine 05/30/21 Development Specialist Relationship Specialty Start Date End Date Salena Flores, APERTURE MASK ETCHER [address] [phone] PCP - General Family Medicine 05/30/21 Development Specialist Relationship Specialty Start Date End Date Salena Flores PUBLICITY EXPERT-LOCK TENDER [address] [phone] PCP - General Certified Nurse Practitioner 01/06/23 Renuka Addison MD [address] [place] [address] Referring Provider Hematology 11/23/22 Taylor Jeff, rice milling supervisorFabrication Engineer Transplant 11/27/22 Gisel Wolf MD [address] [place], [place] [phone] Transplant Physician Transplant 11/27/22 Team Status: Inactive Member Role Status Dates Dr. Jenn Perez MD Attending Provider Active Team Status: Active Member Role Status Dates Anika Rashid LPN Attending Provider Active Team Status: Inactive Member Role Status Dates Iraida NULL MD Attending Provider Active Team Status: Active Member Role Status Dates Dr. Jenn Perez MD Attending Provider, Referrin g Provider Active Team Status: Active Member Role Status Dates Dr. Iraida Balderas MD Primary Care Provider Active Team Status: Inactive Member Role Status Dates Dr. Iraida Balderas MD Primary Care Provider Active Dr. Migue Metcalf DO Emergency Provider Active Team Status: Inactive Member Role Status Dates Dr. Jenn Perez MD Attending Provider, Referrin g Provider Active Team Status: Inactive Member Role Status Dates Dr. Jenn Perez MD Attending Provider Active Dr. Iraida Balderas MD Primary Care Provider, Referrin g Provider Active Team Status: Active Member Role Status Dates Dr. Iraida Balderas MD Primary Care Provider Active Gayatri Hinds Attending Provider Active Team Status: Active Member Role Status Dates Dr. Jenn Perez MD Attending Provider, Referrin g Provider Active Dr. Iraida Balderas MD Primary Care Provider Active Team Status: Inactive Member Role Status Dates Dr. Iraida Balderas MD Primary Care Provider Active Dr. Migue Metcalf DO Attending Provider, Emergency Pr ovider Active Team Status: Active Member Role Status Dates Dr. Iraida Balderas MD Primary Care Provider Active Iraida NULL MD Attending Provider Active Team Status: Inactive Member Role Status Dates Dr. Jenn Perez MD Attending Provider, Referrin g Provider Active Dr. Iraida Balderas MD Primary Care Provider Active Team Status: Inactive Member Role Status Dates Dr. Iraida Balderas MD Primary Care Provider Active Iraida NULL MD Attending Provider Active Team Status: Active Member Role Status Dates Dr. Iraida Balderas MD Primary Care Provider, Referrin g Provider Active Dr. Te Shah MD Attending Provider, Other Pr ovider Active Team Status: Active Member Role Status Dates Dr. Iraida Balderas MD Primary Care Provider, Referrin g Provider Active Dr. Te Shah MD Attending Provider Active Team Status: Inactive Member Role Status Dates Dr. Iraida Balderas MD Primary Care Provider, Referrin g Provider Active Dr. Te Shah MD Attending Provider Active Team Status: Inactive Member Role Status Dates Dr. Iraida Balderas MD Primary Care Provider, Referrin g Provider Active Dr. Jenn Perez MD Attending Provider Active Team Status: Inactive Member Role Status Dates Dr. Iraida Balderas MD Primary Care Provider Active [facility] Attending Provider Active Development Specialist Relationship Specialty Start Date End Date Salena Flores, PUBLICITY EXPERT-LOCK TENDER [address] [phone] PCP - General Certified Nurse Practitioner 01/06/23 Renuka Addison MD [address] [place] [address] Referring Provider Hematology 11/23/22 Taylor Jeff, rice milling supervisorFabrication Engineer Transplant 11/27/22 Gisel Wolf MD [address] [place] [address] Transplant Physician Transplant 11/27/22 Jenn Perez [facility] [address] [place], [place] [phone] Oncologist Medical Oncology 09/08/23 Team Status: Inactive Member Role Status Dates Dr. Iraida Balderas MD Primary Care Provider, Referrin g Provider Active Zayda Hanson APERTURE MASK ETCHER, APERTURE MASK ETCHER-C Attending Provider Active Team Status: Active Member Role Status Dates Dr. Iraida Balderas MD Primary Care Provider Active Dr. Te Shah MD Other Provider Active Dr. Kofi Barboza MD Attending Provider, Referring P james Active Development Specialist Relationship Specialty Start Date End Date Blade Milner DO [address] [place] [phone] PCP - General Family Medicine 03/08/24 Renuka Addison MD [facility] [place] [address] Referring Provider Hematology 11/23/22 Taylor Jeff, rice milling supervisorFabrication Engineer Transplant 11/27/22 Gisel Wolf MD [address] [place] [address] Transplant Physician Transplant 11/27/22 Jenn Perez [facility] [address] [place] [address] Oncologist Medical Oncology 09/08/23 Blade Milner DO [address] [place] [phone] Family Medicine 03/08/24 Development Specialist Relationship Specialty Start Date End Date Blade Milner DO [address] [place] [address] PCP - General Family Medicine 03/22/24 Development Specialist Relationship Specialty Start Date End Date Blade Milner DO [address] [place] [address] PCP - General Family Medicine 03/22/24 Development Specialist Relationship Specialty Start Date End Date Blade Milner DO [address] [place] [address] PCP - General Family Medicine 03/22/24 Development Specialist Relationship Specialty Start Date End Date Blade Milner DO [address] [place] [address] PCP - General Family Medicine 03/22/24 Development Specialist Relationship Specialty Start Date End Date Blade Milner DO [address] [place] [address] PCP - General Family Medicine 03/22/24 Development Specialist Relationship Specialty Start Date End Date Blade Milner DO [address] [place] [address] PCP - General Family Medicine 03/22/24 Development Specialist Relationship Specialty Start Date End Date Blade Milner DO [address] [place] [address] PCP - General Family Medicine 03/22/24 Team Status: Active Member Role Status Dates Dr. Blade Milner DO Primary Care Provider Active Team Status: Inactive Member Role Status Dates Dr. Blade Milner DO Primary Care Provider Active Start: July 10, 2024 End: August 13, 2024 Dr. Burt Kaba MD Admit Provider Active Star t: July 10, 2024 End: August 13, 2024 Dr. Burt Kaba MD Attending Provider Active Start: July 10, 2024 End: August 13, 2024 Dr. Burt Kaba MD Referring Provider Active Start: July 10, 2024 End: August 13, 2024 Dr. Oren Ledbetter MD Other Provider Active Start: July 10, 2024 End: August 13, 2024 Dr. Oren Olivera MD Other Provider Active Star t: July 10, 2024 End: August 13, 2024 Team Status: Active Member Role Status Dates Dr. Blade Milner DO Primary Care Provider Active Start: August 09, 2024 Dr. Burt Kaba MD Admit Provider Active Star t: August 09, 2024 Dr. Burt Kaba MD Referring Provider Active Start: August 09, 2024 Dr. Burt Kaba MD Other Provider Active Star t: August 09, 2024 Dr. Oren Ledbetter MD Other Provider Active Start: August 09, 2024 Dr. Oren Olivera MD Attending Provider Active Start: August 09, 2024 Dr. Oren Olivera MD Other Provider Active Star t: August 09, 2024 Team Status: Active Member Role Status Dates Dr. Blade Milner DO Primary Care Provider Active Start: August 11, 2024 Dr. Burt Kaba MD Admit Provider Active Star t: August 11, 2024 Dr. Burt Kaba MD Referring Provider Active Start: August 11, 2024 Dr. Burt Kaba MD Other Provider Active Star t: August 11, 2024 Dr. Oren Ledbetter MD Other Provider Active Start: August 11, 2024 Dr. Oren Olivera MD Attending Provider Active Start: August 11, 2024 Dr. Oren Olivera MD Other Provider Active Star t: August 11, 2024 Team Status: Inactive Member Role Status Dates Dr. Blade Milner DO Primary Care Provider Active Start: August 17, 2024 End: August 17, 2024 Dr. Blade Milner DO Referring Provider Active Start: August 17, 2024 End: August 17, 2024 Zayda Hanson APERTURE MASK ETCHER, APERTURE MASK ETCHER-C Attending Provider Active Start: August 17, 2024 End: August 17, 2024 Team Status: Inactive Member Role Status Dates Dr. Blade Milner DO Primary Care Provider Active Start: August 31, 2024 End: August 31, 2024 Dr. Blade Milner DO Referring Provider Active Start: August 31, 2024 End: August 31, 2024 Dr. Oren Olivera MD Attending Provider Active Start: August 31, 2024 End: August 31, 2024 Team Status: Inactive Member Role Status Dates Dr. Blade Milner DO Primary Care Provider Active Start: September 13, 2024 End: September 13, 2024 Dr. Blade Milner DO Referring Provider Active Start: September 13, 2024 End: September 13, 2024 Dr. Jenn Perez MD Attending Provider Active Start: September 13, 2024 End: September 13, 2024 Team Status: Inactive Member Role Status Dates Dr. Blade Milner DO Primary Care Provider Active Start: October 02, 2024 End: October 02, 2024 Dr. Arturo Snyder MD Attending Provider Active Start: October 02, 2024 End: October 02, 2024 Dr. Arturo Snyder MD Referring Provider Active Start: October 02, 2024 End: October 02, 2024 Dr. Arturo Snyder MD Emergency Provider Active Start: October 02, 2024 End: October 02, 2024 Team Status: Inactive Member Role Status Dates Dr. Blade Milner DO Primary Care Provider Active Start: October 12, 2024 End: October 12, 2024 Dr. Blade Milner DO Referring Provider Active Start: October 12, 2024 End: October 12, 2024 Zayda Hanson [employer], [employer]-C Attending Provider Active Start: October 12, 2024 End: October 12, 2024 Team Status: Active Member Role Status Dates Dr. Blade Milner DO Primary Care Provider Active Start: October 20, 2024 Dr. Blade NULL MD Attending Provider Active Start: October 20, 2024 Team Status: Inactive Member Role Status Dates Dr. Blade Milner DO Primary Care Provider Active Start: November 02, 2024 End: November 02, 2024 Dr. Blade Milner DO Referring Provider Active Start: November 02, 2024 End: November 02, 2024 Dr. Oren Olivera MD Attending Provider Active Start: November 02, 2024 End: November 02, 2024 Team Status: Inactive Member Role Status Dates Dr. Blade Milner DO Primary Care Provider Active Start: November 09, 2024 End: November 09, 2024 Dr. Blade Milner DO Referring Provider Active Start: November 09, 2024 End: November 09, 2024 Zayda Hanson [employer], [employer]-C Attending Provider Active Start: November 09, 2024 End: November 09, 2024 Team Status: Inactive Member Role Status Dates Dr. Blade Milner DO Primary Care Provider Active Start: November 21, 2024 End: November 21, 2024 Dr. Blade Milner DO Referring Provider Active Start: November 21, 2024 End: November 21, 2024 JEFFERY Jain Attending Provider Active Star t: November 21, 2024 End: November 21, 2024 Team Status: Inactive Member Role Status Dates Dr. Blade Milner DO Primary Care Provider Active Start: November 21, 2024 End: November 21, 2024 Dr. Luan Car MD Attending Provider Active S tart: November 21, 2024 End: November 21, 2024 Team Status: Active Member Role Status Dates Dr. Blade Milner DO Primary Care Provider Active Start: December 07, 2024 Dr. Jenn Perez MD Attending Provider Active Start: December 07, 2024 Team Status: Active Member Role Status Dates Dr. Jenn Perez MD Attending Provider Active Start: December 07, 2024 Dr. Jenn Perez MD Referring Provider Active Start: December 07, 2024 Dr. Iraida Balderas MD Primary Care Provider Active Start: December 07, 2024 Team Status: Inactive Member Role Status Dates Dr. Blade Milner DO Primary Care Provider Active Start: December 07, 2024 End: December 07, 2024 Dr. Blade Milner DO Referring Provider Active Start: December 07, 2024 End: December 07, 2024 Dr. Jenn Perez MD Attending Provider Active Start: December 07, 2024 End: December 07, 2024 Team Status: Inactive Member Role Status Dates Dr. Blade Milner DO Primary Care Provider Active Start: December 11, 2024 End: December 11, 2024 Dr. Blade NULL MD Attending Provider Active Start: December 11, 2024 End: December 11, 2024 Dr. Blade NULL MD Referring Provider Active Start: December 11, 2024 End: December 11, 2024 Team Status: Inactive Member Role Status Dates Dr. Blade Milner DO Primary Care Provider Active Start: January 04, 2025 End: January 04, 2025 Dr. Blade Milner DO Referring Provider Active Start: January 04, 2025 End: January 04, 2025 Zayda Valentin [employer], [employer]-C Attending Provider Active Start: January 04, 2025 End: January 04, 2025 Team Status: Active Member Role Status Dates Dr. Jenn Perez MD Attending Provider Active Start: January 04, 2025 Dr. Jenn Perez MD Referring Provider Active Start: January 04, 2025 Dr. Iraida Balderas MD Primary Care Provider Active Start: January 04, 2025 Team Status: Inactive Member Role Status Dates Dr. Blade Milner DO Primary Care Provider Active Start: January 04, 2025 End: January 04, 2025 Zayda Valentin [employer], [employer]-C Attending Provider Active Start: January 04, 2025 End: January 04, 2025 Zayda Valentin [employer], [employer]-C Referring Provider Active Start: January 04, 2025 End: January 04, 2025 Team Status: Active Member Role Status Dates Dr. Blade Milner DO Primary Care Provider Active Start: January 11, 2025 Dr. Blade NULL MD Attending Provider Active Start: January 11, 2025 Team Status: Inactive Member Role Status Dates Dr. Blade Milner DO Primary Care Provider Active Start: January 31, 2025 End: January 31, 2025 Dr. Marleni Newman DO Emergency Provider Active S tart: January 31, 2025 End: January 31, 2025 Team Status: Inactive Member Role Status Dates Dr. Blade Milner DO Primary Care Provider Active Start: January 11, 2025 End: January 11, 2025 Dr. Blade NULL MD Attending Provider Active Start: January 11, 2025 End: January 11, 2025 Team Status: Inactive Member Role Status Dates Dr. Blade Milner DO Primary Care Provider Active Start: January 31, 2025 End: January 31, 2025 Dr. Marleni Newman DO Attending Provider Active S tart: January 31, 2025 End: January 31, 2025 Dr. Marleni Newman DO Emergency Provider Active S tart: January 31, 2025 End: January 31, 2025 Team Status: Inactive Member Role Status Dates Dr. Blade Milner DO Primary Care Provider Active Start: February 01, 2025 End: February 01, 2025 Dr. Blade Milner DO Referring Provider Active Start: February 01, 2025 End: February 01, 2025 Zayda Hanson [employer], [employer]-C Attending Provider Active Start: February 01, 2025 End: February 01, 2025 Team Status: Active Member Role Status Dates Dr. Jenn Perez MD Attending Provider Active Start: February 01, 2025 Dr. Jenn Perez MD Referring Provider Active Start: February 01, 2025 Dr. Iraida Balderas MD Primary Care Provider Active Start: February 01, 2025 Team Status: Inactive Member Role Status Dates Dr. Blade Milner DO Primary Care Provider Active Start: February 20, 2025 End: February 20, 2025 Dr. Blade NULL MD Attending Provider Active Start: February 20, 2025 End: February 20, 2025 Dr. Blade NULL MD Referring Provider Active Start: February 20, 2025 End: February 20, 2025 Scheduled Active and Recently Administ ered Medications (unrecognized section and content) Medication Order 11/19/2022 11/20/2022 11/21/2022 aluminum-magnesium hydroxide-simethicone (MAALOX) 200-200-20 mg/5 mL suspension 15 mL 15 mL, oral, 4 times daily before meals and nightly, First dose on Lili 11/19/22 at 0245 0237 (Given - Provider: Staci King RN)0822 (Given - Provider: Swapna Chirinos RN)1330 (Given - Provider: Swapna Chirinos RN)1723 (Given - Provider: Liset Herbert RN)2141 (Given - Provider: Liset Herbert RN) 0844 (Given - Provider: Alise Junior RN)1202 (Given - Provider: Evans Montero RN)1652 (Given - Provider: Evans Montero RN)2243 (Given - Provider: Gracy Mack RN) 0814 (Given - Provider: Lia Barnett LPN)1213 (Given - Provider: Lia Barnett LPN)1630 (Canceled Entry - Provider: Automatic Discharge Provider - Comment: Automatically canceled at discontinue of medication order) amLODIPine (NORVASC) tablet 10 mg 10 mg, oral, Daily, First dose on Wed11/10/22 at 1536 0825 (Given - Provider: Swapna Chirinos RN) 0845 (Given - Provider: Alise Junior RN) 1024 (Given - Provider: Lia Barnett LPN) atorvastatin (LIPITOR) tablet 10 mg 10 mg, oral, Daily, First dose on Wed11/10/22 at 1536 0825 (Given - Provider: Swapna Chirinos RN) 0845 (Given - Provider: Alise Junior RN) 1024 (Given - Provider: Lia Barnett LPN) dexAMETHasone (DECADRON) tablet 2 mg (COMPLETED) 2 mg, oral, Every 8 hours scheduled, First dose on Wed11/18/22 at 1800, For 24 hours 0622 (Given - Provider: Staci King RN)1330 (Given - Provider: Swapna Chirinos RN) dexAMETHasone (DECADRON) tablet 2 mg (COMPLETED) 2 mg, oral, Every 12 hours scheduled, First dose on Wed11/19/22 at 2200, For 24 hours 2141 (Given - Provider: Liset Herbert RN) 0845 (Given - Provider: Alise Junior RN) dexAMETHasone (DECADRON) tablet 2 mg (COMPLETED) 2 mg, oral, Daily, First dose on Wed11/21/22 at 0900, For 24 hours 0815 (Given - Provider: Lia Barnett LPN) levothyroxine (SYNTHROID, LEVOTHROID) tablet 88 mcg 88 mcg, oral, Daily, First dose on Wed11/10/22 at 1536, ORAL ROUTE: take on an empty stomach and separate from other medications. ENTERAL TUBE ROUTE: If newly initiated enteral nutrition duration is over 5 days, hold enteral nutrition 1 hour before and after drug administration, per ASPEN guidelines. 0825 (Given - Provider: Swapna Chirinos RN) 0845 (Given - Provider: Alise Junior RN) 0816 (Given - Provider: Lia Barnett LPN) melatonin tablet 6 mg 6 mg, oral, Nightly, First dose on Wed11/21/22 at 2100 metoprolol tartrate (LOPRESSOR) tablet 50 mg 50 mg, oral, 2 times daily, First dose on Wed11/10/22 at 2100 0825 (Given - Provider: Swapna Chirinos RN)214 (Given - Provider: Liset Herbert RN) 0845 (Given - Provider: Alise Junior RN)2100 (Given - Provider: Gracy Mack RN) 1024 (Given - Provider: Lia Barnett LPN) pantoprazole (PROTONIX) EC tablet 40 mg 40 mg, oral, Every morning before breakfast, First dose on Wed11/11/22 at 0700, Do not crush, chew, or split. 0622 (Given - Provider: Staci King RN) 0845 (Given - Provider: Alise Junior RN) 0632 (Given - Provider: Gracy Mack RN) polyethylene glycol (MIRALAX) packet 17 g 17 g, oral, Daily, First dose on 11/15/22 at 0300 0823 (Given - Provider: Swapna Chirinos RN) 0844 (Given - Provider: Alise Junior RN) 0814 (Given - Provider: Lia Barnett LPN) ropivacaine (NAROPIN) 0.5 % 246.25 mg, EPINEPHrine (ADRENALIN) 1 mg/mL 0.5 mg, ketorolac (TORADOL) 30 mg, cloNIDine (DURACLON) 80 mcg in sodium chloride 0.9 % 100 mL injection irrigation, Once, On Wed11/11/22 at 1400, For 1 dose, Intraprocedure senna (SENOKOT) tablet 8.6 mg 8.6 mg (1 tablet), oral, 2 times daily, First dose on 11/15/22 at 0300 0825 (Given - Provider: Swapna Chirinos RN)214 (Given - Provider: Liset Herbert RN) 0845 (Given - Provider: Alise Junior RN)2100 (Given - Provider: Gracy Mack RN) 0815 (Given - Provider: Lia Barnett LPN) sodium chloride 0.9 % flush 10 mL(Linked Group 1) 10 mL, intravenous, 2 times daily, First dose on Wed11/10/22 at 1413 0827 (Given - Provider: Swapna Chirinos RN)2140 (Given - Provider: Liset Herbert RN) 08 (Not Given - Provider: Alise Junior RN - Reason: Loss of IV access)2101 (Not Given - Provider: Gracy Mack RN - Reason: Other - Comment: duplicate) 08 (Given - Provider: Lia Barnett LPN) sodium chloride 0.9 % flush 10 mL(Linked Group 2) 10 mL, intravenous, 2 times daily, First dose on Wed11/10/22 at 2100 0822 (Given - Provider: Swapna Chirinos RN)2141 (Not Given - Provider: Liset Herbert RN - Reason: Patient/Resident/Age nt refused - education provided ) 0858 (Not Given - Provider: Alise Junior RN - Reason: Loss of IV access)2100 (Given - Provider: Gracy Mack RN) 0823 (Not Given - Provider: Lia Barnett LPN - Reason: Other - Comment: duplicate) vancomycin (VANCOCIN) 1 g in sodium chloride 0.9 % 1,000 mL OR irrigation irrigation, Once, On Wed11/11/22 at 1330, For 1 dose, Intraprocedure, Indication: Prophylaxis-Surgical Continuous Medication Order 11/19/2022 11/20/2022 11/21/2022 sodium chloride 0.9 % infusion 125 mL/hr, intravenous, Continuous, Starting on Wed11/10/22 at 1528 PRN Medication Order 11/19/2022 11/20/2022 11/21/2022 acetaminophen (TYLENOL) tablet 650 mg 650 mg, oral, Every 6 hours PRN, mild pain, Starting on Wed11/10/22 at 1535 1527 (Given - Provider: Liset Herbert RN) 1613 (Given - Provider: Gissel Hart RN) 0631 (Given - Provider: Gracy Frederick, RN) ondansetron (PF) (ZOFRAN) injection 4 mg(Linked Group 3) 4 mg, intravenous, Every 8 hours PRN, vomiting, nausea, Starting on Wed11/10/22 at 1534, -ONLY give IV if patient is unable to take orally. -If inadequate response within 30 minutes, proceed to next-line agent or contact provider if no further options ordered. ondansetron ODT (ZOFRAN-ODT) disintegrating tablet 4 mg(Linked Group 3) 4 mg, oral, Every 8 hours PRN, vomiting, nausea, Starting on Wed11/10/22 at 1534, -Give IV if patient is unable to take orally. -If inadequate response within 30 minutes, proceed to next-line agent or contact provider if no further options ordered. For ODT tablets: -Do not remove from blister pack until just before administering. -Patient should allow tablet to dissolve on tongue. oxyCODONE (ROXICODONE) immediate release tablet 5 mg 5 mg, oral, Every 4 hours PRN, Breakthrough pain, Starting on Wed11/11/22 at 1801, Recovery & On Unit, May consider scheduled oxyCODONE instead of PRN 0632 (Given - Provider: Gracy Mack RN) promethazine (PHENERGAN) suppository 25 mg(Linked Group 4) 25 mg, rectal, Every 12 hours PRN, nausea, vomiting, Starting on Wed11/11/22 at 1833, 2nd Line Option: -ONLY give MI if patient is unable to take orally. -If inadequate response within 30 minutes, proceed to next-line agent or contact provider if no further options ordered. promethazine (PHENERGAN) tablet 25 mg(Linked Group 4) 25 mg, oral, Every 6 hours PRN, nausea, vomiting, Starting on Wed11/11/22 at 1833, 2nd Line Option: -Give MI if patient is unable to take orally. -If inadequate response within 30 minutes, proceed to next-line agent or contact provider if no further options ordered. senna (SENOKOT) tablet 17.2 mg 17.2 mg (2 tablet), oral, Nightly PRN, constipation, Starting on Wed11/10/22 at 1410, Bowel Regimen - for prevention of constipation sodium chloride 0.9 % flush 10 mL(Linked Group 1) 10 mL, intravenous, As needed, line care, Starting on Wed11/10/22 at 1410 sodium chloride 0.9 % flush 10 mL(Linked Group 2) 10 mL, intravenous, As needed, line care, Starting on Wed11/10/22 at 1535 traZODone (DESYREL) tablet 50 mg 50 mg, oral, Nightly PRN, sleep, Starting on 11/21/22 at 1327 Linked Groups Order Group 1: Insert peripheral IV (COMPLETED) STAT, Once, On Wed11/10/22 at 1411, For 1 occurrence And Maintain IV access (CANCELED) Until discontinued, Starting on Wed11/10/22 at 1411, Until Specified And Saline lock IV (COMPLETED) Routine, Once, On Wed11/10/22 at 1411, For 1 occurrence And sodium chloride 0.9 % flush 10 mLJump to med 10 mL, intravenous, 2 times daily, First dose on Wed11/10/22 at 1413 And sodium chloride 0.9 % flush 10 mLJump to med 10 mL, intravenous, As needed, line care, Starting on Wed11/10/22 at 1410 Group 2: Insert peripheral IV (COMPLETED) STAT, Once, On Wed11/10/22 at 1536, For 1 occurrence And Maintain IV access (CANCELED) Until discontinued, Starting on Wed11/10/22 at 1536, Until Specified And Saline lock IV (COMPLETED) Routine, Once, On Wed11/10/22 at 1536, For 1 occurrence And sodium chloride 0.9 % flush 10 mLJump to med 10 mL, intravenous, 2 times daily, First dose on Wed11/10/22 at 2100 And sodium chloride 0.9 % flush 10 mLJump to med 10 mL, intravenous, As needed, line care, Starting on Wed11/10/22 at 1535 Group 3: ondansetron ODT (ZOFRAN-ODT) disintegrating tablet 4 mgJump to med 4 mg, oral, Every 8 hours PRN, vomiting, nausea, Starting on Wed11/10/22 at 1534
-Give IV if patient is unable to take orally. -If inadequate response within 30 minutes, proceed to next-line agent or contact provider if no further options ordered. For ODT tablets: -Do not remove from blister pack until just before administering. -Patient should allow tablet to dissolve on tongue.
Or ondansetron (PF) (ZOFRAN) injection 4 mgJump to med 4 mg, intravenous, Every 8 hours PRN, vomiting, nausea, Starting on Wed11/10/22 at 1534
-ONLY give IV if patient is unable to take orally. -If inadequate response within 30 minutes, proceed to next-line agent or contact provider if no further options ordered.
Group 4: promethazine (PHENERGAN) tablet 25 mgJump to med 25 mg, oral, Every 6 hours PRN, nausea, vomiting, Starting on Wed11/11/22 at 1833
2nd Line Option: -Give MI if patient is unable to take orally. -If inadequate response within 30 minutes, proceed to next-line agent or contact provider if no further options ordered.
Or promethazine (PHENERGAN) suppository 25 mgJump to med 25 mg, rectal, Every 12 hours PRN, nausea, vomiting, Starting on Wed11/11/22 at 1833
2nd Line Option: -ONLY give MI if patient is unable to take orally. -If inadequate response within 30 minutes, proceed to next-line agent or contact provider if no further options ordered.
Scheduled Medication Order 12/07/2022 12/08/2022 12/09/2022 amLODIPine (NORVASC) tablet 10 mg 10 mg, oral, Daily, First dose on Wed12/02/22 at 0900 0913 (Given - Provider: Remedios Ward, JOHN) 0820 (Not Given - Provider: Swapna Chirinos RN - Reason: Patient/Resident/Agen t refused - education provided ) 08 (Given - Provider: Felicia Armijo RN) atorvastatin (LIPITOR) tablet 10 mg 10 mg, oral, Daily, First dose on Wed12/02/22 at 0900 0913 (Given - Provider: Remedios Ward RN) 0820 (Given - Provider: Swapna Chirinos, JOHN) 08 (Given - Provider: Felicia Armijo RN) ceFAZolin (ANCEF) 1 gram/10 mL IV syringe 1 g (COMPLETED) 1 g, intravenous, Administer over 3 Minutes, Every 8 hours, First dose on Wed12/02/22 at 0030, For 7 days, Indication: Skin/Soft Tissue 0012 (Given - Provider: Osmin Castro RN)0909 (Given - Provider: Remedios Ward RN)1733 (Given - Provider: Remedios Ward RN)2352 (Given - Provider: Osmin Castro RN) 0821 (Given - Provider: Swapna Chirinos RN)1642 (Given - Provider: Swapna Chirinos, JOHN) enoxaparin (LOVENOX) injection 40 mg 40 mg, subcutaneous, Daily, First dose on Wed12/05/22 at 1245, Indication: VTE/PE Prophylaxis 0908 (Given - Provider: Remedios Ward RN) 0820 (Given - Provider: Swapna Chirinos RN) 0804 (Given - Provider: Felicia Armijo RN) influenza quadrivalent (3 years and up) (AFLURIA) (PF) vaccine 0.5 mL 0.5 mL, intramuscular, During hospitalization, Starting on 12/07/22 at 0944, For 1 dose levothyroxine (SYNTHROID, LEVOTHROID) tablet 88 mcg 88 mcg, oral, Daily, First dose on Wed12/02/22 at 0900, ORAL ROUTE: take on an empty stomach and separate from other medications. ENTERAL TUBE ROUTE: If newly initiated enteral nutrition duration is over 5 days, hold enteral nutrition 1 hour before and after drug administration, per ASPEN guidelines. 0913 (Given - Provider: Remedios Ward RN) 0820 (Given - Provider: Swapna Chirinos RN) 0804 (Given - Provider: Felicia Armijo RN) melatonin tablet 6 mg 6 mg, oral, Nightly, First dose on Wed12/02/22 at 0002, For 20 days 2055 (Given - Provider: Osmin Castro RN) 2149 (Given - Provider: Zofia Cummings LPN) metoprolol tartrate (LOPRESSOR) tablet 50 mg 50 mg, oral, 2 times daily, First dose on Wed12/02/22 at 0002 0913 (Given - Provider: Remedios Ward RN)2056 (Given - Provider: Osmin Castro, JOHN) 0820 (Not Given - Provider: Swapna Chirinos RN - Reason: Patient/Resident/Agen t refused - education provided )2149 (Given - Provider: Zofia Cummings LPN) 0803 (Given - Provider: Felicia Armijo, JOHN) pantoprazole (PROTONIX) EC tablet 40 mg 40 mg, oral, Every morning before breakfast, First dose on Wed12/02/22 at 0700, Do not crush, chew, or split. 0600 (Given - Provider: Osmin Castro RN) 0616 (Given - Provider: Osmin Castro RN) 0605 (Given - Provider: Zofia Cummings LPN) polyethylene glycol (MIRALAX) packet 17 g 17 g, oral, Daily, First dose on Wed12/09/22 at 1430 1423 (Given - Provider: Felicia Armijo, JOHN) senna-docusate (PERICOLACE) 8.6-50 mg per tablet 1 tablet 1 tablet, oral, 2 times daily, First dose (after last modification) on Wed12/09/22 at 2100, Bowel Regimen - for prevention of constipation simethicone (MYLICON) chewable tablet 160 mg (COMPLETED) 160 mg, oral, 4 times daily with meals and nightly, First dose on Wed12/08/22 at 1215, For 1 day 1231 (Given - Provider: Swapna Chirinos RN)1641 (Given - Provider: Swapna Chirinos RN)2149 (Given - Provider: Zfoia Cummings LPN) 0803 (Given - Provider: Felicia Armijo RN) sodium chloride 0.9 % flush 10 mL(Linked Group 1) 10 mL, intravenous, 2 times daily, First dose on Wed12/02/22 at 0001 0914 (Given - Provider: Remedios Ward RN)2100 (Given - Provider: Osmin Castro RN) 0820 (Given - Provider: Swapna Chirinos RN)215 (Given - Provider: Zofia Cummings LPN) 0804 (Given - Provider: Felicia Armijo RN) PRN Medication Order 12/07/2022 12/08/2022 12/09/2022 acetaminophen (TYLENOL) tablet 650 mg 650 mg, oral, Every 6 hours PRN, mild pain, Starting on Wed12/02/22 at 0000 0530 (Given - Provider: Osmin Castro, JOHN)1431 (Given - Provider: Remedios Ward RN) 2150 (Given - Provider: Zofia Cummings LPN) HYDROmorphone (DILAUDID) injection 0.5 mg 0.5 mg, intravenous, Every 3 hours PRN, severe pain, Starting on Wed12/02/22 at 0000 ondansetron (PF) (ZOFRAN) injection 4 mg(Linked Group 2) 4 mg, intravenous, Every 8 hours PRN, vomiting, nausea, Starting on Wed12/02/22 at 0000, -ONLY give IV if patient is unable to take orally. -If inadequate response within 30 minutes, proceed to next-line agent or contact provider if no further options ordered. ondansetron ODT (ZOFRAN-ODT) disintegrating tablet 4 mg(Linked Group 2) 4 mg, oral, Every 8 hours PRN, vomiting, nausea, Starting on Wed12/02/22 at 0000, -Give IV if patient is unable to take orally. -If inadequate response within 30 minutes, proceed to next-line agent or contact provider if no further options ordered. For ODT tablets: -Do not remove from blister pack until just before administering. -Patient should allow tablet to dissolve on tongue. oxyCODONE (ROXICODONE) immediate release tablet 5 mg 5 mg, oral, Every 4 hours PRN, moderate pain, severe pain, Starting on Wed12/02/22 at 0000 prochlorperazine (COMPAZINE) injection 10 mg(Linked Group 3) 10 mg, intravenous, Every 6 hours PRN, nausea, vomiting, Starting on Wed12/02/22 at 0000, 2nd Line Option: -ONLY give IV if patient is unable to take orally. -Give IM if patient does not have IV Access -If inadequate response within 30 minutes, proceed to next-line agent or contact provider if no further options ordered. prochlorperazine (COMPAZINE) suppository 25 mg(Linked Group 3) 25 mg, rectal, Every 12 hours PRN, nausea, vomiting, Starting on Wed12/02/22 at 0000, 2nd Line Option: -ONLY give MI if patient is unable to take orally and cannot receive IV/IM. -If inadequate response within 30 minutes, proceed to next-line agent or contact provider if no further options ordered. prochlorperazine (COMPAZINE) tablet 10 mg(Linked Group 3) 10 mg, oral, Every 6 hours PRN, nausea, vomiting, Starting on Wed12/02/22 at 0000, 2nd Line Option: -Give IV or IM if patient is unable to take orally. -If inadequate response within 30 minutes, proceed to next-line agent or contact provider if no further options ordered. senna-docusate (PERICOLACE) 8.6-50 mg per tablet 1 tablet (CANCELED) 1 tablet, oral, 2 times daily PRN, constipation, Starting on Wed12/02/22 at 0000, Bowel Regimen - for prevention of constipation 0148 (Given - Provider: Osmin Castro, JOHN) sodium chloride 0.9 % flush 10 mL(Linked Group 1) 10 mL, intravenous, As needed, line care, Starting on Wed12/02/22 at 0000 traZODone (DESYREL) tablet 50 mg 50 mg, oral, Nightly PRN, sleep, Starting on Wed12/02/22 at 0000 2351 (Given - Provider: Osmin Castro RN) Linked Groups Order Group 1: Insert peripheral IV (COMPLETED) STAT, Once, On Wed12/02/22 at 0001, For 1 occurrence And Maintain IV access (CANCELED) Until discontinued, Starting on Wed12/02/22 at 0001, Until Specified And Saline lock IV (COMPLETED) Routine, Once, On Wed12/02/22 at 0001, For 1 occurrence And sodium chloride 0.9 % flush 10 mLJump to med 10 mL, intravenous, 2 times daily, First dose on Wed12/02/22 at 0001 And sodium chloride 0.9 % flush 10 mLJump to med 10 mL, intravenous, As needed, line care, Starting on Wed12/02/22 at 0000 Group 2: ondansetron ODT (ZOFRAN-ODT) disintegrating tablet 4 mgJump to med 4 mg, oral, Every 8 hours PRN, vomiting, nausea, Starting on Wed12/02/22 at 0000
-Give IV if patient is unable to take orally. -If inadequate response within 30 minutes, proceed to next-line agent or contact provider if no further options ordered. For ODT tablets: -Do not remove from blister pack until just before administering. -Patient should allow tablet to dissolve on tongue.
Or ondansetron (PF) (ZOFRAN) injection 4 mgJump to med 4 mg, intravenous, Every 8 hours PRN, vomiting, nausea, Starting on Wed12/02/22 at 0000
-ONLY give IV if patient is unable to take orally. -If inadequate response within 30 minutes, proceed to next-line agent or contact provider if no further options ordered.
Group 3: prochlorperazine (COMPAZINE) tablet 10 mgJump to med 10 mg, oral, Every 6 hours PRN, nausea, vomiting, Starting on Wed12/02/22 at 0000
2nd Line Option: -Give IV or IM if patient is unable to take orally. -If inadequate response within 30 minutes, proceed to next-line agent or contact provider if no further options ordered.
Or prochlorperazine (COMPAZINE) injection 10 mgJump to med 10 mg, intravenous, Every 6 hours PRN, nausea, vomiting, Starting on Wed12/02/22 at 0000
2nd Line Option: -ONLY give IV if patient is unable to take orally. -Give IM if patient does not have IV Access -If inadequate response within 30 minutes, proceed to next-line agent or contact provider if no further options ordered.
Or prochlorperazine (COMPAZINE) suppository 25 mgJump to med 25 mg, rectal, Every 12 hours PRN, nausea, vomiting, Starting on Wed12/02/22 at 0000
2nd Line Option: -ONLY give MI if patient is unable to take orally and cannot receive IV/IM. -If inadequate response within 30 minutes, proceed to next-line agent or contact provider if no further options ordered.
Scheduled Medication Order 12/17/2022 12/18/2022 12/19/2022 amLODIPine (NORVASC) tablet 10 mg 10 mg, oral, Daily, First dose on Wed12/18/22 at 0900 0840 (Given - Provider: Poncho Claros RN) 1047 (Given - Provider: Remedios Ward, JOHN) atorvastatin (LIPITOR) tablet 10 mg 10 mg, oral, Daily, First dose on Wed12/18/22 at 0900 0840 (Given - Provider: Poncho Claros RN) 1047 (Given - Provider: Remedios Ward RN) cholecalciferol (VITAMIN D-3) capsule 50,000 Units 50,000 Units, oral, Weekly, First dose on Wed12/18/22 at 0900, For 111 days 0848 (Given - Provider: Poncho Claros RN) enoxaparin (LOVENOX) injection 40 mg 40 mg, subcutaneous, Every 24 hours scheduled, First dose on Wed12/18/22 at 0900, Indication: VTE/PE Prophylaxis 0840 (Given - Provider: Poncho Claros RN) 1046 (Given - Provider: Remedios Ward, JOHN) levothyroxine (SYNTHROID, LEVOTHROID) tablet 88 mcg 88 mcg, oral, Daily, First dose on Wed12/18/22 at 0900, ORAL ROUTE: take on an empty stomach and separate from other medications. ENTERAL TUBE ROUTE: If newly initiated enteral nutrition duration is over 5 days, hold enteral nutrition 1 hour before and after drug administration, per ASPEN guidelines. 0851 (Given - Provider: Poncho Claros RN) 1047 (Given - Provider: Remedios Ward, JOHN) melatonin tablet 6 mg 6 mg, oral, Nightly, First dose on Wed12/18/22 at 0045, For 4 days 0056 (Given - Provider: Na Tran, RN)2049 (Given - Provider: Jayde Aceves, JOHN) metoprolol tartrate (LOPRESSOR) tablet 50 mg 50 mg, oral, 2 times daily, First dose on Wed12/18/22 at 0045 0056 (Given - Provider: Na Tran, RN)0840 (Given - Provider: Poncho Claros RN)0 (Given - Provider: Jayde Aceves, JOHN) 1047 (Given - Provider: Remedios Ward RN) pantoprazole (PROTONIX) EC tablet 40 mg 40 mg, oral, Every morning before breakfast, First dose on Wed12/18/22 at 0700, Do not crush, chew, or split. 0752 (Given - Provider: Jayde Aceves RN) 0622 (Given - Provider: Jayde Aceves, JOHN) polyethylene glycol (MIRALAX) packet 17 g 17 g, oral, Daily, First dose on Wed12/18/22 at 0900, Dissolve in 240 mLs (8 ounces) of water or sports drink prior to giving. 0840 (Given - Provider: Poncho Claros RN) 1046 (Given - Provider: Remedios Ward, JOHN) senna (SENOKOT) tablet 8.6 mg 8.6 mg (1 tablet), oral, 2 times daily, First dose on Wed12/18/22 at 0045 0056 (Not Given - Provider: aN Tran RN - Reason: Other - Comment: pt has had loose stools all night er the ED nurse)0840 (Given - Provider: Poncho Claros RN)2050 (Given - Provider: Jayde Aceves RN) 1047 (Given - Provider: Remedios Ward, JOHN) sodium chloride 0.9 % flush 10 mL(Linked Group 1) 10 mL, intravenous, 2 times daily, First dose on Wed12/18/22 at 0045 0057 (Given - Provider: Na Tran RN)0839 (Given - Provider: Poncho Claros RN)205 (Given - Provider: Jayde Aceves RN) 1047 (Given - Provider: Remedios Ward, JOHN) PRN Medication Order 12/17/2022 12/18/2022 12/19/2022 acetaminophen (TYLENOL) tablet 650 mg 650 mg, oral, Every 6 hours PRN, mild pain, Starting on Wed12/18/22 at 0016 oxyCODONE (ROXICODONE) immediate release tablet 5 mg 5 mg, oral, Every 6 hours PRN, moderate pain, Starting on Wed12/18/22 at 0016 0058 (Given - Provider: Na Tran RN)1236 (Given - Provider: Poncho Claros RN)1950 (Given - Provider: Poncho Claros RN) 0222 (Given - Provider: Jayde Aceves RN) sodium chloride 0.9 % flush 10 mL(Linked Group 1) 10 mL, intravenous, As needed, line care, Starting on Wed12/18/22 at 0016 traZODone (DESYREL) tablet 50 mg 50 mg, oral, Nightly PRN, sleep, Starting on Wed12/18/22 at 0016 0056 (Given - Provider: Na Tran RN) Linked Groups Order Group 1: Insert peripheral IV (CANCELED) STAT, Once, On Wed12/18/22 at 0017, For 1 occurrence And Maintain IV access (CANCELED) Until discontinued, Starting on Wed12/18/22 at 0017, Until Specified And Saline lock IV (CANCELED) Routine, Once, On Wed12/18/22 at 0017, For 1 occurrence And sodium chloride 0.9 % flush 10 mLJump to med 10 mL, intravenous, 2 times daily, First dose on Wed12/18/22 at 0045 And sodium chloride 0.9 % flush 10 mLJump to med 10 mL, intravenous, As needed, line care, Starting on Wed12/18/22 at 0016 Goals (unrecognized section and content) Goals may be documented in a n alternate sectionGoals may be documented in an alternate sectionGoals may be documented in an alternate sectionGoals may be documented in an alternate sectionGoals may be documented in an alternate sectionGoals may be documented in an alternate sectionGoals may be documented in an alternate sectionGoals may be documented in an alternate sectionGoals may be documented in an alternate sectionGoals may be documented in an alternate sectionGoals may be documented in an alternate sectionGoals may be documented in an alternate sectionGoals may be documented in an alternate sectionGoals may be documented in an alternate sectionGoals may be documented in an alternate sectionGoals may be documented in an alternate sectionGoals may be documented in an alternate sectionGoals may be documented in an alternate section Source Comments (unrecognize d section and content) In the event this informatio n is protected by the Federal Confidentiality of Alcohol and Drug Abuse Patient Records regulations: The Federal rules restrict any use of the information to criminally investigate or prosecute any alcohol or drug abuse patient.[facility] the event this information is protected by the Federal Confidentiality of Alcohol and Drug Abuse Patient Records regulations: The Federal rules restrict any use of the information to criminally investigate or prosecute any alcohol or drug abuse patient.[facility] the event this information is protected by the Federal Confidentiality of Alcohol and Drug Abuse Patient Records regulations: The Federal rules restrict any use of the information to criminally investigate or prosecute any alcohol or drug abuse patient.[facility] the event this information is protected by the Federal Confidentiality of Alcohol and Drug Abuse Patient Records regulations: The Federal rules restrict any use of the information to criminally investigate or prosecute any alcohol or drug abuse patient.[facility] the event this information is protected by the Federal Confidentiality of Alcohol and Drug Abuse Patient Records regulations: The Federal rules restrict any use of the information to criminally investigate or prosecute any alcohol or drug abuse patient.[facility] the event this information is protected by the Federal Confidentiality of Alcohol and Drug Abuse Patient Records regulations: The Federal rules restrict any use of the information to criminally investigate or prosecute any alcohol or drug abuse patient.[facility] FOR RECORDS PERTAINING TO PATIENTS WHO ARE OR HAVE BEEN ENROLLED IN A CHEMICAL DEPENDENCY/SUBSTANCEABUSE PROGRAM, SOME INFORMATION MAY BE OMITTED. This clinical summary was aggregated from multiple sources. Caution should be exercised in using it in the provision of clinical care. This summary normalizes information from multiple sources, and as a consequence, information in this document may materially change the coding, format and clinical context of patient data. In addition, data may be omitted in some cases. CLINICAL DECISIONS SHOULD BE BASED ON THE PRIMARY CLINICAL RECORDS. [facility] [employer] [facility]. provides no warranty or guarantee of the accuracy or completeness of information in this document.
[2025-02-28 08:19] LABS: Cholesterol 172 mg/dL (<=200); High Density Lipoprotein 38 mg/dL; Low Density Lipoprotein Calc. 110 mg/dL; T4 Total, Thyroxin 7.2 ug/dL (4.5-12.1); Triglycerides 122 mg/dL; Very Low Density Lipoprotein 24 mg/dL (5-40); cholesterol:hdl ratio screen 4.59
== END ==
PROVIDERS: Referring Provider Family Medicine; Visit Provider Family Medicine
DX: I10 Essential (primary) hypertension (principal); E78.5 Hyperlipidemia, unspecified; E03.9 Hypothyroidism, unspecified
CPT/HCPCS: 36415; 80061; 84436; 84443

== ENCOUNTER → 2025-07-20 | Outpatient (REF) | payer MEDICARE, OTHER, SELFPAY ==
--- OUTSIDE RECORDS SUMMARY | 2025-07-20 04:23 | XMS RPT_ITS | CCD ---
Author Organization [facility] In[facility] ion [facility] [employer] [facility] Care Team Providers Care Wall Taper Helper Name Role Phone Sandra MANAGER BUSINESS, Salena Chanel Primary Care Provider SALENA FLORES Referring Unavailabl e SANDRA, SALENA CHANEL Primary Care Unavailabl e Flores MANAGER BUSINESS, Salena Chanel Primary Care Provider Sandra MANAGER BUSINESS, Salena Chanel Primary Care Provider LLUVIA FISHER [...] SANDRA, SALENA CHANEL Primary Care Unavailabl e SALENA FLORES Referring Unavailabl e SANDRA, SALENA CHANEL Attending Unavailabl e SANDRA, SALENA CHANEL Primary Care Unavailabl e SANDRA, SALENA CHANEL Primary Care Unavailabl e SHERRY AMBROSE Attending Unavailable SANDRA, SALENA CHANEL Attending Unavailabl e FLORES, SALENA CHANEL Primary Care Unavailabl e FLORES, SALENA CHANEL Attending Unavailabl e SANDRA, SALENA CHANEL Primary Care Unavailabl e NATI FLOWERS~[id number] RODARTE Attend ing Unavailable SANDRA, SALENA CHANEL Primary Care Unavailabl e SANDRA, SALENA CHANEL Attending Unavailabl e SANDRA, SALENA CHANEL Primary Care Unavailabl e FLORES, SALENA DARÍO Primary Care Unavailabl e BLADE PALM Admitting Unavailable MIRIAM MIRIAM, MARTA LOZANO K~[id number] Attending Unavailable ISH TAO JR Consulting Unavailable ISH TAO JR Consulting Unavailable MIRIAM, MARTA K Consulting Unavailable MIRIAM MIRIAM, MARTA LOZANO K~[phone] Consulting Unavailable ISH TAO JR Referring Unavailable SALENA FLORES Primary Care Unavailabl e ARMAND JAY Admitting Unavailable HEATHER SANDOVAL Attending Unavailable ISH TAO JR Consulting Unavailable ISH TAO JR Consulting Unavailable Cyn DEE, Renuka Unavailable Randee RN, Taylor Unavailable Unavailable Angel DEE, Gisel Unavailable Sandra OFFSET PROOF PRESS OPERATOR-MERCHANDISING DIRECTOR, Salena Silver Primary Care Provider FRANCI SANTIAGO [...] e CHARLIE, EMANUEL Attending Unavailable SALENA FLORES DARÍO Primary Care Unavailabl e ISH UPTON JR, JR~[id number] Referr ing Unavailable DALE MORALES~[id number] Atte nding Unavailable SALENA FLORES Primary Care Unavailabl e FAHAD MCCOY Admitting Unavailable ISH TAO JR Consulting Unavailable ISH UPTON JR, JR~[id number] Consul ting Unavailable CYN, RENUKA Consulting Unavailable CYN, RENUKA Consulting Unavailable CYN, RENUKA Consulting Unavailable CHARLIE, EMANUEL Consulting Unavailable CHARLIE, EMANUEL Consulting Unavailable CHARLIE, EMANUEL Consulting Unavailable SANDRA, SALENA MURGUIAE Primary Care Unavailabl e EDER, NIA Referring Unavailable CYN, RENUKA Referring Unavailable FLORES, SALENA CHANEL Primary Care Unavailabl e FLORES, SALENA CHANEL Referring Unavailabl e FLORES, SALENA CHANEL Primary Care Unavailabl e FLORES, SALENA CHANEL Referring Unavailabl e FLORES, SALENA CHANEL Primary Care Unavailabl e CYN, RENUKA Referring Unavailable FLORES, SALENA DARÍO Primary Care Unavailabl e CYN, RENUKA Referring Unavailable FLORES, SALENA DARÍO Primary Care Unavailabl e MORGAN EFRAÍN, EFRAÍN~[id number] MORGAN Referring Unavailable FLORES, SALENA CHANEL Primary Care Unavailabl e CHARLIE, EMANUEL Attending Unavailable CYN, RENUKA Referring Unavailable FLORES, SALENA CHANEL Primary Care Unavailabl e Cyn DEE, Renuka Unavailable Randee LOPEZ, Taylor Unavailable Unavailable Angel DEE, Gisel Unavailable Sandra OFFSET PROOF PRESS OPERATOR-MERCHANDISING DIRECTOR, Salena Silver Primary Care Provider SUSANNAH Rashid Attending Provider Unavailable Dr. Jenn Perez Attending Provider SUSANNAH Rashid Attending Provider Unavailable Dr. Jenn Perez Attending Provider Dr. Jenn Perez Referring Provider Dr. Iraida Balderas Primary Care Provider Dr. Iraida Balderas Referring Provider Gayatri Hinds Attending Provider Unavailable Dr. Te Shah Attending Provider Dr. Te Shah Other Provider Jenn Del Valle Unavailable Dr. Jenn Perez Attending Provider Valentin MANAGER BUSINESS, MANAGER BUSINESS-C Zayda Attending Provider Dr. Iraida Balderas Primary Care Provider Dr. Iraida Balderas Referring Provider Dr. Te Shah Attending Provider [phone] Dr. Te Shah Other Provider Dr. Jenn Perez Attending Provider Valentin MANAGER BUSINESS, MANAGER BUSINESSLupeC Zayda Attending Provider Dr. Iraida Balderas Primary Care Provider [phone] Iraida Balderas Referring Provider [phone] Te Shah Attending Provider [phone] Dr. Te Shah Other Provider [phone] Dr. Kofi Barboza Attending Provider [phone] Dr. Kofi Barboza Referring Provider Dr. Iraida Balderas Primary Care Provider Dr. Iraida Balderas Referring Provider Dr. Jenn Perez Attending Provider Dr. Te Shah Attending Provider [phone] Dr. Te Shah Other Provider Blade Milner DO E Unavailable Blade Milner DO E Primary Care Provider MilnerBlade pollock DO Primary Care Provider [phone] MICKEY MUNOZ Attending Unavailable MILNER, BLADE Primary Care Unavailable ALEX BARRIENTOS Attending Unavailable MILNER, BLADE Primary Care Unavailable MILNER, BLADE Primary Care Unavailable MICKEY [...] Care Unavailable MILNER, BLADE Primary Care Unavailable MICKEY MUNOZ Attending Unavailable MILNER, BLADE Primary Care Unavailable MICKEY MUNOZ Attending Unavailable MILNER, BLADE Primary Care Unavailable MICKEY MUNOZ Attending Unavailable LBADE MILNER Primary Care Unavailable MICKEY MUNOZ Attending Unavailable Unavailable Primary Care Provider UnavailRIC Iyer Referring Unavailable Dr. Blade Milner DO Primary Care Provider [phone] Sesar DEE, Dr. Burt Yoo Admit Provider Sesar DEE, Dr. Burt Yoo Attending Provider Sesar DEE, Dr. Burt Yoo Referring Provider Anatoly DEE, Dr. Lott Other Provider Joselin DEE, Dr. Lott Other Provider Sesar DEE, Dr. Burt Yoo Other Provider Joselin DEE, Dr. Lott Attending Provider Dr. Blade Milner DO Referring Provider [phone] Valentin MANAGER BUSINESS-C, Zayda Attending Provider Chris DEE, Dr. Barajas Attending Provider Claudio DEE, Dr. Morris Attending Provider Dr. Arturo Snyder MD Referring Provider Dr. Arturo Snyder MD Emergency Provider Alf DEE, Dr. Gonzales Attending Provider Unavail able Joyce Reece Attending Provider Joceline DEE, Dr. Roland Attending Provider Dr. Jenn Perez MD Referring Provider Dr. Iraida Balderas MD Primary Care Provider Dr. Blade Milner DO Primary Care Provider [phone] Dr. Blade Milner DO Referring Provider [phone] Dr. Oren Olviera MD Attending Provider Valentin MANAGER BUSINESS-C, Zayda Attending Provider Dr. Blade Milner MD Referring Provider Unavail able Dr. Blade Milner DO Primary Care Provider [phone] Dr. Blade Milner DO Referring Provider [phone] Dr. Oren Olivera MD Attending Provider Dr. Jenn Perez MD Referring Provider Dr. Iraida Balderas MD Primary Care Provider Valentin MANAGER BUSINESS-C, Zayda Referring Provider Dr. Blade Milner DO Primary Care Provider [phone] Dr. Blade Milner DO Referring Provider Dr. Jenn Perez MD Attending Provider Dr. Marleni Newman DO Emergency Provider [phone] RIC SOUZA Attending Unavailabl e PCP, NO Referring Unavailable RIC SOUZA Attending Unavailroger e Paty SALEH, Dr. Yepez Attending Provider [phone] Jenn Perez MD Referring Provider Dr. Iraida Balderas MD Primary Care Provider Dr. Blade Milner DO Primary Care Provider [phone]) Dr. Blade Milner DO Referring Provider [phone] Valentin MANAGER BUSINESS-C, Zayda Attending Provider Dr. Blade Milner MD Attending Provider Unavail able Dr. Blade Milner DO Primary Care Provider [phone]) Dr. Blade Milner DO Referring Provider [phone] Dr. Jenn Perez MD Referring Provider Dr. Iraida Balderas MD Primary Care Provider LETICIA BOWIE Attending Unavailable BLADE MILNER Referring Unavailable Cyn DEE, Renuka Unavailable Chris HUNTLEY [facility], Jenn Brewster Unavailable Blade Milner DO Unavailable Blade Milner DO Primary Care Provider GISEL WOLF Attending Unavailable BLADE MILNER Referring Unavailable BLADE MILNER Primary Care Unavailable BLADE MILNER Primary Care Unavailable BUMMA, GISEL Attending Unavailable BLADE MILNER Referring Unavailable Dr. Blade Milner DO Primary Care Provider [phone]) Dr. Blade Milner DO Referring Provider [phone] Valentin MANAGER BUSINESS-C, Zayda Attending Provider Dr. Jenn Perez MD Referring Provider Dr. Iraida Balderas MD Primary Care Provider Dr. Blade Milner DO Primary Care Provider [phone]) Dr. Blade Milner DO Referring Provider [phone] Dr. Blade Milner MD Attending Provider Unavail able Dr. Blade Milner MD Referring Provider Unavail able Dr. Jenn Perez MD Attending Provider Dr. Blade Milner DO Attending Provider [phone] Dr. Jenn Perez MD Referring Provider Dr. Iraida Balderas MD Primary Care Provider Dr. Blade Milner DO Primary Care Provider [phone]) Dr. Blade Milner DO Referring Provider [phone] Valentin WHELAN-Herve, Zayda Attending Provider Dr. Blade Milner DO Attending Provider [phone] Dr. Oren Olivera MD Attending Provider Dr. Blade Milner DO Primary Care Provider [phone]) Dr. Blade Milner MD Attending Provider Unavail able Dr. Blade Milner DO Attending Provider [phone] Dr. Jenn Perez MD Referring Provider Dr. Iraida Balderas MD Primary Care Provider Dr. Blade Milner DO Primary Care Physician [phone] Dr. Blade Milner MD Attending Physician Dr. Blade Maldonado MD Referring Provider Unavail able Dr. Blade Milner DO Referring Provider [phone] Valentin MANAGER BUSINESS-C, Zayda Attending Physician Dr. Jenn Perez MD Attending Physician Dr. Oren Olivera MD Attending Physician Dr. Blade Milner DO Attending Physician Dr. Jenn Perez MD Referring Provider Dr. Iraida Balderas MD Primary Care Physician [phone] Jenn Perez Attending Unavailable Iraida Balderas Primary Care Unavailable Jenn Perez Referring Unavailable Oren Olivera Attending Unavailable Milner, Blade Primary Care Unavailable Milner, Blade Referring Unavailable Milner, Blade Primary Care Unavailable Milner, Blade Referring Unavailable IscJenn reagan Attending Unavailable Milner, Blade Primary Care Unavailable Milner, Blade Referring Unavailable Valentin MANAGER BUSINESS, Zayda Attending Unavailable Milner, Blade Attending Unavailable Milner, Blade Referring Unavailable Milner, Blade Primary Care Unavailable Milner TENNILLE, Blade Attending Unavailable Milner, Blade Primary Care Unavailable Milner, Blade Primary Care Unavailable Milner OLS, Blade Referring Unavailable MilnerBlade Hernandez Attending Unavailable Milner TENNILLE, Blade Referring Unavailable Milner TENNILLE, Blade Attending Unavailable Milner, Blade Primary Care Unavailable Milner, Blade Primary Care Unavailable Milner, Blade Referring Unavailable Valentin MANAGER BUSINESS, Zayda Attending Unavailable Valentin MANAGER BUSINESS, Zayda Attending Unavailable Milner, Blade Primary Care Unavailable Milner, Blade Referring Unavailable Joyce Hernandez Attending Unavailable Milner, Blade Primary Care Unavailable Milner, Blade Referring Unavailable Milner, Blade Primary Care Unavailable Luan Car Attending Unavailable Milner, Blade Referring Unavailable Milner, Blade Primary Care Unavailable IscJenn reagan Attending Unavailable Milner, Blade Referring Unavailable Milner, Blade Primary Care Unavailable IscJenn reagan Attending Unavailable Milner, Blade Referring Unavailable Oren Olivera Attending Unavailable Milner, Blade Primary Care Unavailable Milner, Blade Referring Unavailable Milner, Blade Primary Care Unavailable IscJenn reagan Attending Unavailable Milner, Blade Primary Care Unavailable Milner TENNILLE, Blade Attending Unavailable Milner, Blade Primary Care Unavailable Marleni Newman Attending Unavailable Milner, Blade Primary Care Unavailable Valentin MANAGER BUSINESS, Zayda Attending Unavailable Valentin MANAGER BUSINESS, Zayda Referring Unavailable Milner, Blade Referring Unavailable Milner, Blade Primary Care Unavailable Valentin MANAGER BUSINESS, Zayda Attending Unavailable Milner, Blade Primary Care Unavailable Arturo Snyder Referring Unavailable Arturo Snyder Attending Unavailable Blade Milner Primary Care Unavailable Alf NULL, Blade Referring Unavailable Alf NULL, Blade Attending Unavailable Valentin MANAGER BUSINESS, Zayda Attending Unavailable Alf, Blade Primary Care Unavailable Blade Milner Referring Unavailable EllengurpreetOren Attending Unavailable Alf, Blade Primary Care Unavailable Blade Milner Referring Unavailable Alf, Blade Referring Unavailable Alf, Blade Primary Care Unavailable Valentin MANAGER BUSINESS, Zayda Attending Unavailable Blade Milner Primary Care Unavailable Jenn Perez Attending Unavailable Blade Milner Referring Unavailable Alf, Blade Primary Care Unavailable Valentin MANAGER BUSINESS, Zayda Attending Unavailable Blade Milner Referring Unavailable Medications Current Medications Medication Drug Class(es) Dates Sig (Normalized) Sig (Original) acetaminophen 500 mg oral tablet (20 sources) Start: 02-01-2025 take 2 tablets by mouth every month Start: 07-08-2023 End: 08-08-2024 take 1 capsule [...] at 1535 take 2 tablets by mo [facility] every six hours as needed acetaminophen 500 MG tablet Take 2 tablets by mouth Every 6 hours as needed. Active acyclovir 400 mg oral tablet (20 sources) Herpesvirus Nucleoside Analog DNA Polymerase Inhibitor, Herpes Simplex Virus Nucleoside Analog DNA Polymerase Inhibitor, Herpes Zoster Virus Nucleoside Analog DNA Polymerase Inhibitor Start: 07-08-2023 take 1 tablet by mouth every twelve hours Start: 07-08-2023 take 400 mg by mouth twice amalia ly Acyclovir Active 400 MG PO TWICE A DAY July 08, 2023 12:00am amLODIPine 10 mg oral tablet (20 sources) Dihydropyridine Calcium Channel Mayco Start: 07-08-2023 take 1 tablet by mouth once daily Start: 07-31-2021 End: 12-19-2022 amLODIPine 10 MG tablet Take by mouth. 07/20/2022 Active amoxicillin 500 mg oral caps ule (20 sources) Penicillin-class Antibacterial Start: 10-31-2024 Start: 08-17-2024 End: 11-02-2024 take 1 capsule by mouth twice daily Amoxicillin 500 mg capsule Discontinued 500 mg PO TWICE A DAY August 17, 2024 1:00am November 02, 2024 3:00pm apixaban 5 mg oral tablet (20 sources) Factor Xa Inhibitor Start: 07-17-2023 take 1 tablet by mouth twice daily Eliquis 5 MG tab let Indications: Venous Thromboembolism Take by mouth every 12 hours. Active ascorbic acid 1000 mg oral tablet (20 sources) Vitamin C Start: 07-08-2023 take 1 g by mouth tw ice daily Start: 07-08-2023 take 1 g by mouth [...] take 1 tablet by mouth twice daily Start: 07-08-2023 End: 07-17-2023 take 1 tablet by mouth once daily Baclofen 5 mg tablet Discontinued 5 mg PO DAILY July 08, 2023 12:00am July 17, 2023 4:08am benzonatate 200 mg oral caps ule (20 sources) Non-narcotic Antitussive Start: 09-13-2024 Start: 08-12-2023 End: 08-08-2024 take 1 capsule by mouth three times daily as needed for cough Benzonatate 200 mg capsule Discontinued 200 mg PO THREE TIMES A DAY as needed for cough August 12, 2023 1:00am August 08, 2024 8:40pm take 1 capsule by mo ut three times daily as needed for cough benzonatate (Tessalon) 100 MG capsule Take 100 mg by mouth 3 times daily as needed for cough. Do not crush or chew. Active calcium carbonate 1500 mg or al tablet (20 sources) Start: 08-12-2023 take 1 tablet by traci th twice daily take 600 mg by mouth in the morn ing Calcium Carbonate (CALCIUM 600 PO) Take 600 mg by mouth in the morning and 600 mg in the evening. Active cefdinir 300 mg oral capsule (6 sources) Cephalosporin Antibacterial Start: 10-30-2024 cefdinir (OMNICEF) 300 mg capsule 10/30/2024 Active cholecalciferol 0.125 mg oral capsule (20 sources) Vitamin D Start: 07-08-2023 take 1 capsule by mouth once daily Start: 09-01-2022 End: 04-07-2023 Cholecalciferol 1.25 MG (500 00 UT) capsule Take by mouth. 10/09/2022 Active Start: 03-15-2022 take 1 capsule by [facility] every week at mealtime cholecalciferol (VITAMIN D-3) 1,250 mcg (50,000 unit) capsule Indications: Vitamin D deficiency, unspecified TAKE 1 CAPSULE BY MOUTH ONCE A WEEK WITH A MEAL 13 capsule 1 03/15/2022 Active take 1 capsule by [facility] once daily cholecalciferol (Vitamin D-3) 125 MCG [...] take 5 tablets by mouth every month Start: 08-04-2023 End: 08-08-2024 take 1 tablet by mouth once daily Dexamethasone 4 mg tablet Discontinued 20 mg PO Q28D June 19, 2024 12:00am August 08, 2024 8:40pm myeloma 20 mg orally Days 1 and 2 of each treatment cycle; cycles are repeated at 4 weeks intervals. Start: 08-04-2023 Dexamethasone Active 20 MG PO .COMPLEX 30 August 04, 2023 1:00am 20 mg orally Days 1 and 2 of each treatment cycle; cycles are repeated at 4 weeks intervals. Start: 2023 End: 07-17-2023 Dexamethasone 4 mg tablet Discontinued 20 mg PO DAILY 60 1 2023 12:00am July 17, 2023 4:03am Multiple myeloma Multiple myeloma not having achieved remission On days 1 and 2 only of [...] take 1 tablet by mouth every month Start: 07-08-2023 End: 08-08-2024 take 1 capsule [...] PO) Take by mouth. Active Disability Placard (20 sources) Start: 2023 Disability [place] card Active 0 .Route .MEDSUPPLY 1 0 2023 12:00am Multiple myeloma Multiple myeloma not having achieved remission weaknes Lifetime Start: 2023 Disability Q[place]a card Active 0 .Route .MEDSUPPLY July 11, 2023 11:00pm Lifetime Start: 2023 Disability [place] card Active 0 .Route .MEDSUPPLY 2023 12:00am Lifetime doxycycline hyclate 100 mg oral capsule (20 sources) Tetracycline-class Drug Start: 02-01-2025 take 1 capsule b y mouth twice daily Start: 10-30-2024 take 1 capsule by [facility] twice daily Doxycycline Hyclate 100 mg capsule [...] mg PO TWICE A DAY 60 30 0 January 04, 2024 12:00am February 02, 2024 12:00am January 19, 2024 1:40pm Start: 08-30-2023 End: 09-13-2023 take 1 capsule by mouth twice daily Doxycycline Monohydrate 100 mg capsule Discontinued 100 mg PO TWICE A DAY 28 14 0 August 30, 2023 1:00am September 12, 2023 1:00am September 13, 2023 1:04am gabapentin 100 mg oral capsule (20 sources) Anti-epileptic Agent Start: 07-08-2023 take 1 capsule by mouth three times daily guaiFENesin 20 mg/ml oral solution (20 sources) take 200 mg by mouth every six hours guaiFENesin (Robitussin) 100 MG/5ML syrup Take 200 mg by mouth in the morning and 200 mg at noon and 200 mg in the evening and 200 mg before bedtime. Active lactulose 667 mg/ml oral solution (1 source) Osmotic Laxative Start: 06-28-2025 take 20 g by mouth every other day lenalidomide 15 mg oral capsule (20 sources) Thalidomide Analog Start: 04-04-2024 Start: 04-04-2024 Lenalidomide ( Revlimid) 15 mg capsule Active 15 mg .ROUTE .COMPLEX 17 03April 04, 2024 10:50am Multiple myeloma Multiple myeloma not having achieved remission 15 mg; 3 weeks on then 1 week rest Start: 04-04-2024 Lenalidomide ( Revlimid) 15 mg capsule Active 15 mg .ROUTE [...] 15 mg capsule Discontinued 0 .ROUTE .COMPLEX 21 0 February 07, 2024 9:38am April 04, 2024 10:51am TAKE 1 CAPSULE BY MOUTH DAILY FOR 21 DAYS levothyroxine sodium 0.112 m g oral tablet (20 sources) l-Thyroxine Start: 02-01-2025 take 1 tablet by traci th once daily Start: 08-12-2023 End: 02-01-2025 Levothyroxine (Levo-T) 100 m cg tablet Discontinued 100 ug PO DAILY August 12, 2023 1:00am February 01, 2025 1:51pm thyroid Start: 07-08-2023 End: 07-17-2023 take 1 capsule [...] 1 tablet by mouth daily. 30 tablet 09/09/2022 09/09/2023 Active Start: 08-04-2021 End: 08-04-2022 [...] mL by mouth once daily as needed Start: 08-12-2023 End: 08-08-2024 take 1 mL by mouth once daily as needed for constipation Magnesium Hydroxide (Milk Of Magnesia) 400 mg/5 mL suspension Discontinued 30 mL PO DAILY as needed for constipation August 12, 2023 1:00am August 08, 2024 8:41pm Start: 08-12-2023 End: 08-08-2024 take 1 mL [...] suspension Take 30 mL by mouth. Active magnesium oxide 400 mg oral tablet (20 sources) Start: 07-08-2023 Start: 07-08-2023 take 250 mg by mouth at bedtim e Magnesium Oxide Active 250 MG PO AT BEDTIME July 08, 2023 12:00am Start: 07-08-2023 take 800 mg by mouth at bedtim e Magnesium Oxide Active 800 MG PO AT BEDTIME July 07, 2023 11:00pm melatonin 3 mg oral capsule (20 sources) Start: 07-08-2023 take 2 capsules by mouth at be dtime Start: 07-08-2023 take 6 mg by mouth [...] take 1 tablet by mouth twice daily Start: 11-05-2022 End: 05-04-2023 take 1 tablet by mouth twice daily Metoprolol 50 MG tab regular release Take 1 tablet by mouth 2 times daily. 12/01/2022 Active Start: 07-31-2021 End: 07-31-2022 take 1 tablet [...] take 1 tablet by mouth once daily Start: 01-29-2022 End: 08-15-2022 take 1 capsule by mouth once daily omeprazole [address] capsule TAKE 1 CAPSULE BY MOUTH 1 TIME EACH DAY. DO NOT CRUSH OR CHEW. 08/11/2022 Active polyethylene glycol 3350 85674 mg powder for oral solution (20 sources) Osmotic Laxative Start: 02-01-2025 take 17 g by mouth once daily Start: 11-05-2022 End: 08-08-2024 Polyethylene Glycol 3350 (Cl earlax) 17 gram/dose powder Discontinued 17 g PO DAILY August 12, 2023 1:00am August 08, 2024 8:41pm constipation Start: 11-05-2022 End: 12-19-2022 17 g, oral, [...] 19 each 0 04/29/2022 05/10/2022 Active sennosides, halfway 8.6 mg oral tablet (20 sources) Start: [...] day. 0 Active simethicone 180 mg oral caps ule (20 sources) Start: 02-01-2025 take 1 capsule by [facility] three times daily as needed Start: 07-08-2023 End: 08-08-2024 take 1 tablet [...] Hydr-Whey Pro (Prosource) 10-100 gram-kcal/30 mL liquid (20 sources) Start: 07-08-2023 End: 07-17-2023 take 1 [...] mg / clavulanate 125 mg oral tablet (14 sources) Penicillin-class Antibacterial Start: 01-04-2024 End: 01-19-2024 Amoxicillin-Pot Clavulanate 875-125 mg tablet Discontinued 1 {tbl} PO TWICE A DAY January 04, 2024 12:00am January 19, 2024 1:39pm Start: 01-04-2024 End: 01-19-2024 take 1 tablet by mouth twice daily Amoxicillin-Pot Clavulanate Discontinued 1 TABLET PO TWICE A DAY January 04, 2024 12:00am January 19, 2024 1:39pm Kxzzmxzg-Fnxgbdvwn-Qxpmuwv H mb (Ariel) 7-7-1.5 gram powder in packet (13 sources) Start: 06-18-2024 End: 08-08-2024 Rplyluha-Veykixvvh-Kcxxtxy H mb (Ariel) 7-7-1.5 gram powder in packet Discontinued 1 NMA PO DAILY June 18, 2024 12:00am August 08, 2024 8:40pm wound Start: 06-18-2024 End: 08-08-2024 Hdfpwhcx-Hlmlnimzn-Cscubre H mb (Ariel) 7-7-1.5 gram powder in packet Discontinued [...] / methyl salicylate 300 mg/ml topical cream (20 sources) Start: 07-08-2023 End: 07-17-2023 Camphor-Methyl Salicyl-Menth [...] Minutes, Every 8 hours, First dose on Lili 11/12/22 at 0000, For 3 doses, Recovery & On Unit Indication: Prophylaxis-Surgical Start: 11-11-2022 End: 11-11-2022 ceFAZolin (ANCEF) 2 gram/20 mL IV syringe 2 g docusate sodium 50 mg / sennosides, halfway 8.6 mg oral tablet (20 sources) Start: 12-09-2022 End: 12-09-2022 senna-docusate (PERICOLACE) 8.6-50 mg per tablet 1 tablet Start: 12-02-2022 End: 08-08-2024 Sennosides-Docusate Sodium ( Senna Plus) 8.6-50 mg tablet Discontinued 1 NMA PO TWICE A DAY July 08, 2023 12:00am August 08, 2024 8:41pm constipation 0.4 ml enoxaparin sodium 100 mg/ml prefilled [...] DAILY 2023 12:00am January 04, 2025 1:54pm supplement gadoterate meglumine (DOTAREM) injection 15 mL (2 [...] (VERSED) injection montelukast 10 mg oral tablet (20 sources) Leukotriene Receptor Antagonist Start: 07-08-2023 End: 07-17-2023 take 1 tablet by mouth once Montelukast (Singulair) 10 mg tablet Discontinued 10 mg PO AT BEDTIME July 08, 2023 12:00am July 17, 2023 4:08am Start 2 days before and the last day of Tx for the first cycle nitrofurantoin, macrocrystals 25 mg / nitrofurantoin, monohydrate 75 mg oral capsule (13 sources) Nitrofuran Antibacterial Start: 10-02-2024 End: 02-01-2025 [...] EVERY 6 HOURS as needed for pain 0 July 08, 2023 12:00am January 19, 2024 [...] 18, 2024 12:00am July 10, 2024 3:03pm antibiotic x 10 days Start: 07-08-2023 End: 07-17-2023 [...] 17, 2023 4:08am vancomycin 1250 mg injection (13 sources) Glycopeptide Antibacterial Start: 07-03-2024 End: 08-08-2024 Vancomycin 1.25 gram recon soln Discontinued 1.25 g IV Q24H 37 0 July 03, 2024 12:00am August 08, 2024 8:41pm infection stop date 08/12/24. Dx: spine osteomyelitis. Weekly bmp, cbc, vanc trough, and esr. Fax to [phone]. Routine picc care per protocol. Problems Active Problems Problem Classification Problem Date Documented Da te Episodic/Chronic Administrative/social admission (2 sources) Encounter for administrative examinations, unspecified; Translations: [Encounter for administrative examinations, unspecified] Onset: 3 Episodic Allergic reactions (20 sources) Disorder of soft tissue; Translations: [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] Onset: 4 12-17-2023 Episodic Bacterial infection; unspecified site (17 sources) History of methicillin resistant Staphylococcus aureus infection; Translations: [Personal history of Methicillin resistant Staphylococcus aureus infection] 12-17-2023 Episodic Chronic ulcer of skin (18 sources) Chronic ulcer of skin; Translations: [Non-pressure chronic ulcer of skin of other sites with muscle involvement without evidence of necrosis] 12-17-2023 Chronic Comment on above: posterior neck Complications of surgical procedures or medical care (20 sources) Postoperative wound infection; Translations: [Infection following a procedure, other surgical site, initial encounter] Onset: 3 Resolved: 3 Episodic Deficiency and other anemia (20 sources) Anemia; Translations: [Anemia, unspecified] 2023 Episodic Deficiency and other anemia (20 sources) Anemia, unspecified; Translations: [Anemia, unspecified] Onset: 5 2023 Episodic Disorders of lipid metabolism (20 sources) Mixed hyperlipidemia; Translations: [Mixed hyperlipidemia] Onset: 9 Chronic Esophageal disorders (14 sources) Gastroesophageal reflux disease; Translations: [Gastro-esophageal reflux disease without esophagitis] 07-10-2024 Chronic Essential hypertension (20 sources) Essential hypertension; Translations: [Essential (primary) hypertension] Onset: 7 Chronic Fever of unknown origin (13 sources) Fever; Translations: [Fever, unspecified] 06-18-2024 Episodic Genitourinary symptoms and ill-defined conditions (20 sources) Csuot-gq-kqdjzpx retention of urine; Translations: [Retention of urine, unspecified] Onset: 5 07-17-2023 Episodic Hyperplasia of prostate (12 sources) Benign prostatic hypertrophy with outflow obstruction; Translations: [Benign prostatic hyperplasia with lower urinary tract symptoms] Onset: 5 11-10-2024 Chronic Infective arthritis and osteomyelitis (except that caused by tuberculosis or sexually transmitted disease) (14 sources) Osteomyelitis of vertebra; Translations: [Osteomyelitis of vertebra, thoracic region] 08-21-2024 Chronic Malaise and fatigue (20 sources) Asthenia; Translations: [Weakness] Onset: 3 11-10-2022 Episodic Multiple myeloma (20 sources) Multiple myeloma; Translations: [Multiple myeloma not having achieved remission] Onset: 3 Chronic Non-Hodgkin`s lymphoma (2 sources) Personal history of non-Hodgkin lymphomas; Translations: [Personal history of non-Hodgkin lymphomas] Onset: 3 Episodic Nutritional deficiencies (20 sources) Vitamin D deficiency; Translations: [Vitamin D deficiency, unspecified] Onset: 9 Chronic Open wounds of head; neck; and trunk (20 sources) Open wound of back; Translations: [Unspecified open wound of unspecified back wall of thorax without penetration into thoracic cavity, initial encounter] 11-02-2024 Episodic Comment on above: Resolved Other connective tissue disease (14 sources) Spasm; Translations: [Other muscle spasm] 07-10-2024 Episodic Other connective tissue disease (14 sources) Neuropathic pain; Translations: [Neuralgia and neuritis, unspecified] 07-10-2024 Episodic Other connective tissue disease (2 sources) Abnormal posture; Translations: [Abnormal posture] Onset: 5 03-14-2025 Episodic Other diseases of bladder and urethra (5 sources) Neurogenic bladder; Translations: [Neuromuscular dysfunction of bladder, unspecified] Onset: 5 11-28-2024 Chronic Other diseases of bladder and urethra (1 source) Neuromuscular dysfunction of bladder, unspecified; Translations: [Neurogenic bladder] Onset: 5 Chronic Other fractures (2 sources) Compression fracture of thoracic spine; Translations: [Wedge compression fracture of second thoracic vertebra, sequela] Onset: 5 03-14-2025 Episodic Other gastrointestinal disorders (19 sources) Abdominal bloating; Translations: [Abdominal distension (gaseous)] 01-04-2025 Episodic Other injuries and conditions due to external causes (1 source) Other injury of unspecified body region, initial encounter; Translations: [Other injury of unspecified body region, initial encounter] Onset: 3 Episodic Other injuries and conditions due to external causes (17 sources) Late effect of radiation; Translations: [Radiation sickness, unspecified, sequela] 12-17-2023 Episodic Other injuries and conditions due to external causes (2 sources) Radiation sickness, unspecified, sequela; Translations: [Late effect of radiation] 12-26-2023 Episodic Other injuries and conditions due to external causes (14 sources) Radiation sickness, unspecified, initial encounter; Translations: [Adverse effect of radiation] 07-18-2024 Episodic Other liver diseases (13 sources) Elevated liver enzymes level; Translations: [High [...] lower extremity, bilateral] Onset: 5 09-08-2023 Chronic Residual codes; unclassified (20 sources) Personal history of irradiation; Translations: [Personal history of irradiation, presenting hazards to health] 08-12-2023 Episodic Residual codes; unclassified (14 sources) Insomnia; Translations: [Insomnia, unspecified] 07-10-2024 Episodic [...] Spondylosis; intervertebral disc disorders; other back problems (8 sources) Degeneration of lumbar intervertebral disc; Translations: [...] Other Problems Problem Classification Problem Date Documented Da te Episodic/Chronic Abdominal pain (11 sources) Abdominal pain - cause unknown; Translations: [Unspecified abdominal pain] Onset: 02-06-2025 01-31-2025 Episodic Complication of device; implant or graft (20 sources) Unspecified complication of genitourinary prosthetic device, implant and graft, initial encounter; Translations: [Complication of urinary catheter] Onset: 01-21-2023 Episodic Immunizations and screening for infectious disease (3 sources) Vaccination given; Translations: [Encounter for immunization] Onset: 08-05-2022 Episodic Mood disorders (4 sources) Mood disorders Onset: 04-14-2023 Resolved: 03-16-2025 04-14-2023 Neoplasms of unspecified nature or uncertain behavior (2 sources) Neoplastic disease; Translations: [Neoplasm of unspecified behavior of bone, soft tissue, and skin] Onset: 11-10-2022 Episodic Nonspecific chest pain (4 sources) Chest discomfort; Translations: [Other chest pain] Onset: 01-29-2022 Episodic Other gastrointestinal disorders (1 source) Abdominal distension (gaseous); Translations: [Abdominal distension (gaseous)] Onset: 01-06-2025 Episodic Other injuries and conditions due to external causes (20 sources) Local infection of wound; Translations: [Other injury of unspecified body region, initial encounter] Onset: 12-01-2022 Episodic Other non-traumatic joint disorders (5 sources) Shoulder pain; Translations: [Pain in left shoulder] Onset: 08-21-2022 Episodic Other non-traumatic joint disorders (2 sources) Pain in left shoulder; Translations: [Pain in left shoulder] Onset: 08-21-2022 Episodic Phlebitis; thrombophlebitis and thromboembolism (20 sources) Deep venous thrombosis; Translations: [Acute embolism and thrombosis of unspecified deep veins of unspecified lower extremity] Onset: 12-07-2024 2023 Episodic Spondylosis; intervertebral disc disorders; other back problems (11 sources) Backache; Translations: [Dorsalgia, unspecified] Onset: 04-29-2022 Episodic Sprains and strains (3 sources) Strain of left trapezius muscle; Translations: [Strain of other muscles, fascia and tendons at shoulder and upper arm level, left arm, initial encounter] Onset: 04-07-2022 Episodic Unclassified (2 sources) Onset: 01-06-2023 Resolved: 04-14-2023 01-06-2023 Urinary tract infections (15 sources) Urinary tract infectious disease; Translations: [Urinary tract infection, site not specified] Onset: 10-21-2024 10-10-2024 Episodic Results Test Name Value Interpretation Reference Range Facility Re-Evaluation - PT (1)on Re-Evaluation - PT (1) Normal [facility] ELINA + Protein Elect, Serumon 07-03-2025 Albumin [Mass/Vol] 3.6 g/dL Normal 2.9-4.4 [facility] Comment on above: Order Comment: N Performed By: #### L 3130.0010, L3100.3425 ####[facility] [address] [place], [address] Albumin/Globulin [Mass ratio] 1.6 {ratio} Normal 0.7-1.7 [facility] Comment on above: Order Comment: N Performed By: #### L 3130.0010, L3100.3425 ####[facility] [address] [place], [address] NGVTE-9-MSVI 0.2 g/dL Normal 0.0-0.4 [facility] Comment on above: Order Comment: N Performed By: #### L 3130.0010, L3100.3425 ####[facility] [address] [place], [address] PPMWB-4-RTIJ 0.8 g/dL Normal 0.4-1.0 [facility] Comment on above: Order Comment: N Performed By: #### L 3130.0010, L3100.3425 ####[facility] [address] [place], [address] BETA GLOBULIN 0.8 g/dL Normal 0.7-1.3 [facility] Comment on above: Order Comment: N Performed By: #### L 3130.0010, L3100.3425 ####[facility] [address] [place], [address] GAMMA GLOBULIN 0.4 g/dL Normal 0.4-1.8 [facility] Comment on above: Order Comment: N Performed By: #### L 3130.0010, L3100.3425 ####[facility] [address] [place], [address] Globulin (S) [Mass/Vol] 2.3 g/dL Normal 2.2-3.9 [facility] Comment on above: Order Comment: N Performed By: #### L 3130.0010, L3100.3425 ####[facility] [address] [place], [address] ELINA RESULT,S Comment Abnormal . [facility] Comment on above: Order Comment: N Result Comment: Immu nofixation shows IgG monoclonal protein with kappalight chain specificity. PLEASE NOTE: Samples from patients receiving DARZALEX(R)(daratumumab) or SARCLISA(R)(isatuximab-psychiatric) treatmentcan appear as an "IgG kappa" and mask a complete response(CR). If this patient is receiving these therapies, thisIFE assay interference can be removed by ordering testnumber [id number]-"Immunofixation, Daratumumab-Specific,Serum" or [id number]-"Immunofixation, Isatuximab-Specific,Serum" and submitting a new sample for testing or bycalling the lab to add this test to the current sample. Performed By: #### L 3130.0010, L3100.3425 ####[facility] [address] [place], [address] IMMUNOGLOB A QN 19 mg/dL Low 61-437 [facility] Comment on above: Order Comment: N Result Comment: Resu lt confirmed on concentration. Performed By: #### L 3130.0010, L3100.3425 ####[facility] [address] [place], [address] IMMUNOGLOB G QN 449 mg/dL Low 603-1613 [facility] Comment on above: Order Comment: N Performed By: #### L 3130.0010, L3100.3425 ####[facility] [address] [place], [address] IMMUNOGLOB M QN 12 mg/dL Low 20-172 [facility] Comment on above: Order Comment: N Result Comment: Resu lt confirmed on concentration. Performed By: #### L 3130.0010, L3100.3425 ####[facility] [address] [place], [address] M-Raúl 0.1 g/dL Abnormal Not Observed [facility] Comment on above: Order Comment: N Performed By: #### L 3130.0010, L3100.3425 ####[facility] [address] [place], [address] NOTE: Comment Normal . [facility] Comment on above: Order Comment: N Result Comment: Prot ein electrophoresis scan will follow via computer,mail, or forging die sinker delivery. Performed By: #### L 3130.0010, L3100.3425 ####[facility] [address] [place], [address] Protein [Mass/Vol] 5.9 g/dL Low 6.0-8.5 [facility] Comment on above: Order Comment: N Performed By: #### L 3130.0010, L3100.3425 ####[facility] [address] [place], [address] [place] Lambda Light Chainson 07-03-2025 FR KAPPA LT CHN 22.2 mg/L Abnormal 3.3-19.4 [facility] Comment on above: Performed By: #### L 3130.0010, L3100.3425 ####[facility] [address] [place], [address] FR LAMBDA LT CH 2.6 mg/L Abnormal 5.7-26.3 [facility] Comment on above: Performed By: #### L 3130.0010, L3100.3425 ####[facility] [address] [place], [address] KAPPA/LAMBDA % 8.54 Abnormal 0.26-1.65 [facility] Comment on above: Result Comment: Perf ormed at: - [facility] [address] [id number] Director: Micky Arreola PhD, Phone: [phone] Performed By: #### L 3130.0010, L3100.3425 ####[facility] [address] [place], [address] Absolute lymphocyte countOrd ered By: Jenn Kingtez on 06-28-2025 Lymphocytes Auto (Unsp spec) [#/Vol] 0.54 10*3/uL Low 0.83-4.51 [facility] Absolute neutrophil countOrd ered By: [facility] on 06-28-2025 Neutrophils (Bld) [#/Vol] 2.3 10*3/uL 2.0-7.7 [facility] Anion gap in Serum or Plasma Ordered By: [facility] Chris on 06-28-2025 Anion gap [Moles/Vol] 12 mmol/L 5-15 [facility] Automated lymphocyte count a s percentage of total leukocytesOrdered By: Georginadayanna Perez on 06-28-2025 Lymphocytes/100 WBC Auto (Unsp spec) 15.3 % Low 19-41 [facility] BUN/creatinine ratioOrdered By: [facility] King[facility] on 06-28-2025 Urea nitrogen/Creatinine [Mass ratio] 14.3 mg/mg 10- [facility] Basophil percentageOrdered B y: Jenn Kingtez on 06-28-2025 Basophils/100 WBC (Bld) 1.4 % High 0-1 [facility] Bilirubin, totalOrdered By: Jenn Kingtez on 06-28-2025 Bilirubin [Mass/Vol] 0.37 mg/dL 0.00-1.30 [facility] CBC W/Diff, Automatedon Absolute Lymph 0.54 X10 3/uL Low 0.83-4.51 [facility] Comment on above: Performed By: #### L 500.4050, L100.0100 ####[facility] [address] [place], [address] Absolute Neut 2.3 X10 3/uL Normal 2.0-7.7 [facility] Comment on above: Performed By: #### L 500.4050, L100.0100 ####[facility] [address] [place], [address] Basophils/100 WBC (Bld) 1.4 % High 0-1 [facility] Comment on above: Performed By: #### L 500.4050, L100.0100 ####[facility] [address] [place], [address] Eosinophils/100 WBC (Bld) 3.1 % Normal 0-5 [facility] Comment on above: Performed By: #### L 500.4050, L100.0100 ####[facility] [address] [place], [address] Erythrocyte distribution width (RBC) [Ratio] 14.4 % Normal 11.6-14.6 [facility] Comment on above: Performed By: #### L 500.4050, L100.0100 ####[facility] [address] [place], [address] Hematocrit (Bld) [Volume fraction] 44.1 % Normal 40-54 [facility] Comment on above: Performed By: #### L 500.4050, L100.0100 ####[facility] [address] [place], [address] Hemoglobin (Bld) [Mass/Vol] 14.5 g/dL Normal 13.0-16.5 [facility] Comment on above: Performed By: #### L 500.4050, L100.0100 ####[facility] [address] [place], [address] IG% 0.300 Normal 0.0-0.9 [facility] Comment on above: Result Comment: IG% - Immature Granulocytes (promyelocytes, myelocytes andmetamyelocytes) > 1% indicates that a LEFT SHIFT is Present. Performed By: #### L 500.4050, L100.0100 ####[facility] [address] [place], [address] Lymphocytes/100 WBC (Bld) 15.3 % Low 19-41 [facility] Comment on above: Performed By: #### L 500.4050, L100.0100 ####[facility] [address] [place], [address] MCH (RBC) [Entitic mass] 28.7 pg Normal 27.0-32.0 [facility] Comment on above: Performed By: #### L 500.4050, L100.0100 ####[facility] [address] [place], [address] MCHC (RBC) [Mass/Vol] 32.9 g/dL Normal 32-36 [facility] Comment on above: Performed By: #### L 500.4050, L100.0100 ####[facility] [address] [place], [address] MCV (RBC) [Entitic vol] 87.2 fL Normal 80-94 [facility] Comment on above: Performed By: #### L 500.4050, L100.0100 ####[facility] [address] [place], [address] Monocytes/100 WBC (Bld) 14.7 % High 0-10 [facility] Comment on above: Performed By: #### L 500.4050, L100.0100 ####[facility] [address] [place], [address] Neutrophils/100 WBC (Bld) 65.2 % Normal 47-70 [facility] Comment on above: Performed By: #### L 500.4050, L100.0100 ####[facility] [address] [place], [address] Nucleated RBC (Bld) [#/Vol] 0 10*3/uL Normal 0-5 [facility] Comment on above: Performed By: #### L 500.4050, L100.0100 ####[facility] [address] [place], [address] Platelet mean volume (Bld) [Entitic vol] 10.6 fL Normal 6.2-12.0 [facility] Comment on above: Performed By: #### L 500.4050, L100.0100 ####[facility] [address] [place], [address] Platelets (Bld) [#/Vol] 182 10*3/uL Normal 150-450 [facility] Comment on above: Performed By: #### L 500.4050, L100.0100 ####[facility] [address] [place], [address] RBC (Bld) [#/Vol] 5.06 10*6/uL Normal 4.6-6.2 [facility] Comment on above: Performed By: #### L 500.4050, L100.0100 ####[facility] [address] [place], [address] RDW SD 46.1 fl High 35.1-43.9 [facility] Comment on above: Performed By: #### L 500.4050, L100.0100 ####[facility] [address] [place], [address] WBC (Bld) [#/Vol] 3.5 10*3/uL Low 4.4-11.0 [facility] Comment on above: Performed By: #### L 500.4050, L100.0100 ####[facility] [address] [place], [address] Carbon dioxide, total [Moles /volume] in Central venous bloodOrdered By: Jenn Perez on 06-28-2025 CO2 [Moles/Vol] 26.3 mmol/L 21.0-32.0 [facility] Chloride assayOrdered By: Lorene Perez on 06-28-2025 Chloride [Moles/Vol] 102 mmol/L 98-108 [facility] Comprehensive Metabolic Prof ilon 06-28-2025 Albumin [Mass/Vol] 4.2 g/dL Normal 3.4-4.8 [facility] Comment on above: Performed By: #### L 500.4050, L100.0100 ####[facility] [address] [place], [address] Albumin/Globulin [Mass ratio] 2.0 {ratio} Normal 0.9-2.4 [facility] Comment on above: Performed By: #### L 500.4050, L100.0100 ####[facility] [address] [place], [address] ALK PHOS 68 U/L Normal 40-129 [facility] Comment on above: Performed By: #### L 500.4050, L100.0100 ####[facility] [address] [place], [address] ALT [Catalytic activity/Vol] 27 U/L Normal <=46 [facility] Comment on above: Performed By: #### L 500.4050, L100.0100 ####[facility] [address] [place], [address] AST [Catalytic activity/Vol] 25 U/L Normal <=37 [facility] Comment on above: Performed By: #### L 500.4050, L100.0100 ####[facility] [address] [place], [address] Bilirubin [Mass/Vol] 0.37 mg/dL Normal 0.00-1.30 [facility] Comment on above: Performed By: #### L 500.4050, L100.0100 ####[facility] [address] [place], [address] BUN/CRE 14.3 RATIO Normal 10-20 [facility] Comment on above: Performed By: #### L 500.4050, L100.0100 ####[facility] [address] [place], [address] Calcium [Mass/Vol] 9.6 mg/dL Normal 7.6-11.0 [facility] Comment on above: Performed By: #### L 500.4050, L100.0100 ####[facility] [address] [place], [address] Chloride [Moles/Vol] 102 mmol/L Normal 98-108 [facility] Comment on above: Performed By: #### L 500.4050, L100.0100 ####[facility] [address] [place], [address] CO2 [Moles/Vol] 26.3 mmol/L Normal 21.0-32.0 [facility] Comment on above: Performed By: #### L 500.4050, L100.0100 ####[facility] [address] [place], [address] Creatinine [Mass/Vol] 0.95 mg/dL Normal 0.70-1.20 [facility] Comment on above: Performed By: #### L 500.4050, L100.0100 ####[facility] [address] [place], [address] ECRCL 74.31 ml/min Normal 50-250 [facility] Comment on above: Performed By: #### L 500.4050, L100.0100 ####[facility] [address] [place], [address] GAP 12 Normal 5-15 [facility] Comment on above: Performed By: #### L 500.4050, L100.0100 ####[facility] [address] [place], [address] GFR/1.73 sq M.predicted among non-blacks MDRD (S/P/Bld) [Vol rate/Area] 88 mL/min/{1.73_m2} Normal >60 [facility] Comment on above: Result Comment: mL/m in/1.73m2 CKD-EPI Creatinine Equation (2020) Performed By: #### L 500.4050, L100.0100 ####[facility] [address] [place], [address] Globulin (S) [Mass/Vol] 2.1 g/dL Low 2.2-4.2 [facility] Comment on above: Performed By: #### L 500.4050, L100.0100 ####[facility] [address] [place], [address] Glucose [Mass/Vol] 104 mg/dL High 70-99 [facility] Comment on above: Performed By: #### L 500.4050, L100.0100 ####[facility] [address] [place], [address] Potassium [Moles/Vol] 4.3 mmol/L Normal 3.3-5.1 [facility] Comment on above: Performed By: #### L 500.4050, L100.0100 ####[facility] [address] [place], [address] Sodium [Moles/Vol] 140 mmol/L Normal 133-145 [facility] Comment on above: Performed By: #### L 500.4050, L100.0100 ####[facility] [address] [place], [address] T PROT 6.3 g/dL Normal 5.9-8.4 [facility] Comment on above: Performed By: #### L 500.4050, L100.0100 ####[facility] [address] [place], [address] Urea nitrogen [Mass/Vol] 14 mg/dL Normal 4-19 [facility] Comment on above: Performed By: #### L 500.4050, L100.0100 ####[facility] [address] [place], [address] Eosinophil percentageOrdered By: Jenn Perez on 06-28-2025 Eosinophils/100 WBC (Bld) 3.1 % 0-5 [facility] Erythrocyte distribution wid th ratioOrdered By: [facility] on 06-28-2025 Erythrocyte distribution width (RBC) [Ratio] 14.4 % 11.6-14.6 [facility] Erythrocyte distribution wid th standard deviationOrdered By: [facility] on 06-28-2025 Erythrocyte distribution width (RBC) [Ratio] 46.1 fl High 35.1-43.9 [facility] Glomerular filtration rate ( GFR) estimation/1.73 sq m using serum, plasma, or whole bOrdered By: [facility] Perez on 06-28-2025 GFR/1.73 sq M.predicted among non-blacks MDRD (S/P/Bld) [Vol rate/Area] 88 mL/min/{1.73_m2} >60 [facility] Comment on above: mL/min/1.73m2 CKD-EP I Creatinine Equation (2020) Hematocrit Auto (Bld) [Volum e fraction]Ordered By: [facility] on 06-28-2025 Hematocrit (Bld) [Volume fraction] 44.1 % 40-54 [facility] Hemoglobin measurementOrdere d By: Jenn Perez on 06-28-2025 Hemoglobin (Bld) [Mass/Vol] 14.5 g/dL 13.0-16.5 [facility] Immature granulocytes/100 WB C Auto (Bld)Ordered By: Jenn Perez on 06-28-2025 Immature granulocytes/100 WBC (Bld) 0.300 % 0.0-0.9 [facility] Comment on above: IG% - Immature Granu locytes (promyelocytes, myelocytes and metamyelocytes) > 1% indicates that a LEFT SHIFT is Present. Laboratory - Chemistry and C hemistry - challengeOrdered By: Jenn Perez on 06-28-2025 AST [Catalytic activity/Vol] 25 U/L <38 [facility] MCV (mean corpuscular volume ) determinationOrdered By: Jenn Perez on 06-28-2025 MCV (RBC) [Entitic vol] 87.2 fL 80-94 [facility] Magnesiumon 06-28-2025 Magnesium [Mass/Vol] 1.7 mg/dL Normal 1.5-2.2 [facility] Comment on above: Performed By: #### L 501.5200, L501.2300 ####[facility] [address] [place], [address] Magnesium measurement (mass/ volume)Ordered By: Jenn Perez on 06-28-2025 Magnesium (Unsp spec) [Mass/Vol] 1.7 mg/dL 1.5-2.2 [facility] Mean corpuscular hemoglobin (MCH) determinationOrdered By: Jenn Perez on 06-28-2025 MCH (RBC) [Entitic mass] 28.7 pg 27.0-32.0 [facility] Mean corpuscular hemoglobin concentration (MCHC) determinationOrdered By: Jenn Perez on 06-28-2025 MCHC (RBC) [Mass/Vol] 32.9 g/dL 32-36 [facility] Mean platelet volume determi nationOrdered By: Jenn Perez on 06-28-2025 Platelet mean volume (Bld) [Entitic vol] 10.6 fL 6.2-12.0 [facility] Monocyte percentageOrdered B y: Jenn Perez on 06-28-2025 Monocytes/100 WBC (Bld) 14.7 % High 0-10 [facility] Neutrophil percentageOrdered By: Jenn Perez on 06-28-2025 Neutrophils/100 WBC (Bld) 65.2 % 47-70 [facility] Nucleated red blood cell per centageOrdered By: Jenn Perez on 06-28-2025 Nucleated RBC/100 WBC (Bld) [Ratio] 0 % 0-5 [facility] Oncology Visit Reporton 100 Oncology Visit Report Normal [facility] Phosphoruson 06-28-2025 Phosphate [Mass/Vol] 3.0 mg/dL Normal 2.7-4.5 [facility] Comment on above: Performed By: #### L 501.5200, L501.2300 ####[facility] [address] [place], [place], [id number] Platelet countOrdered By: Lorene Perez on 06-28-2025 Platelets (Bld) [#/Vol] 182 10*3/uL 150-450 [facility] Potassium measurement (mass/ volume)Ordered By: Jenn Perez on 06-28-2025 Potassium (Unsp spec) [Mass/Vol] 4.3 mmol/L 3.3-5.1 [facility] RBC Auto (Bld) [#/Vol]Ordere d By: Jenn Perez on 06-28-2025 RBC (Bld) [#/Vol] 5.06 10*6/uL 4.6-6.2 [facility] Serum creatinine measurement (mass/volume)Ordered By: Jenn Perez on 06-28-2025 Creatinine [Mass/Vol] 0.95 mg/dL 0.70-1.20 [facility] Serum globulin measurementOr dered By: Jenn Perez on 06-28-2025 Globulin (S) [Mass/Vol] 2.1 g/dL Low 2.2-4.2 [facility] Serum glucose measurement (m ass/volume)Ordered By: Jenn Perez on 06-28-2025 Glucose [Mass/Vol] 104 mg/dL High 70-99 [facility] Serum or plasma alanine oropeza otransferase (ALT) measurementOrdered By: Jenn Perez on 06-28-2025 ALT [Catalytic activity/Vol] 27 U/L <47 [facility] Serum or plasma albumin giovanny urement (mass/volume)Ordered By: Jenn Perez on 06-28-2025 Albumin [Mass/Vol] 4.2 g/dL 3.4-4.8 [facility] Serum or plasma albumin/glob ulin mass ratioOrdered By: Jenn Perez on 06-28-2025 Albumin/Globulin [Mass ratio] 2.0 {ratio} 0.9-2.4 [facility] Serum or plasma alkaline stacy sphatase measurementOrdered By: Georginadayanna Perez on 06-28-2025 ALP [Catalytic activity/Vol] 68 U/L 40-129 [facility] Serum or plasma calcium giovanny urement (mass/volume)Ordered By: Jenn Perez on 06-28-2025 Calcium [Mass/Vol] 9.6 mg/dL 7.6-11.0 [facility] Serum or plasma urea nitroge n measurement (mass/volume)Ordered By: Jenn Perez on 06-28-2025 Urea nitrogen [Mass/Vol] 14 mg/dL 4-19 [facility] Sodium levelOrdered By: Georgina Perez on 06-28-2025 Sodium [Moles/Vol] 140 mmol/L 133-145 [facility] Total proteinOrdered By: Lam Perez on 06-28-2025 Protein [Mass/Vol] 6.3 g/dL 5.9-8.4 [facility] White blood cell (WBC) count Ordered By: Jenn Perez on 06-28-2025 WBC (Bld) [#/Vol] 3.5 10*3/uL Low 4.4-11.0 [facility] ELINA + Protein Elect, Serumon 06-05-2025 Albumin [Mass/Vol] 3.3 g/dL Normal 2.9-4.4 [facility] Comment on above: Order Comment: N Performed By: #### L 3130.0010, L3052.3425 ####[facility] [address] [facility]. [place], [place], [address] Albumin/Globulin [Mass ratio] 1.5 {ratio} Normal 0.7-1.7 [facility] Comment on above: Order Comment: N Performed By: #### L 3130.0010, L3100.3425 ####[facility] [address] [facility]. [place], [place], [address] HIHGK-2-SMEZ 0.2 g/dL Normal 0.0-0.4 [facility] Comment on above: Order Comment: N Performed By: #### L 3130.0010, L3100.3425 ####[facility] [address] [place], [address] KTMSH-0-YGBI 0.8 g/dL Normal 0.4-1.0 [facility] Comment on above: Order Comment: N Performed By: #### L 3130.0010, L3100.3425 ####[facility] [address] [place], [address] BETA GLOBULIN 0.8 g/dL Normal 0.7-1.3 [facility] Comment on above: Order Comment: N Performed By: #### L 3130.0010, L3100.3425 ####[facility] [address] [place], [address] GAMMA GLOBULIN 0.4 g/dL Normal 0.4-1.8 [facility] Comment on above: Order Comment: N Performed By: #### L 3130.0010, L3100.3425 ####[facility] [address] [place], [address] Globulin (S) [Mass/Vol] 2.3 g/dL Normal 2.2-3.9 [facility] Comment on above: Order Comment: N Performed By: #### L 3130.0010, L3100.3425 ####[facility] [address] [place], [address] ELINA RESULT,S Comment Abnormal . [facility] Comment on above: Order Comment: N Result Comment: Immu nofixation shows IgG monoclonal protein with kappalight chain specificity. PLEASE NOTE: Samples from patients receiving DARZALEX(R)(daratumumab) or SARCLISA(R)(isatuximab-irf) treatmentcan appear as an "IgG kappa" and mask a complete response(CR). If this patient is receiving these therapies, thisIFE assay interference can be removed by ordering testnumber [id number]-"Immunofixation, Daratumumab-Specific,Serum" or [id number]-"Immunofixation, Isatuximab-Specific,Serum" and submitting a new sample for testing or bycalling the lab to add this test to the current sample. Performed By: #### L 3130.0010, L3100.3425 ####[facility] [address] [place], [address] IMMUNOGLOB A QN 19 mg/dL Low 61-437 [facility] Comment on above: Order Comment: N Result Comment: Resu lt confirmed on concentration. Performed By: #### L 3130.0010, L3100.3425 ####[facility] [address] [place], [address] IMMUNOGLOB G QN 426 mg/dL Low 603-1613 [facility] Comment on above: Order Comment: N Performed By: #### L 3130.0010, L3100.3425 ####[facility] [address] [place], [address] IMMUNOGLOB M QN 10 mg/dL Low 20-172 [facility] Comment on above: Order Comment: N Result Comment: Resu lt confirmed on concentration. Performed By: #### L 3130.0010, L3100.3425 ####[facility] [address] [place], [address] M-Raúl 0.1 g/dL Abnormal Not Observed [facility] Comment on above: Order Comment: N Performed By: #### L 3130.0010, L3100.3425 ####[facility] [address] [place], [address] NOTE: Comment Normal . [facility] Comment on above: Order Comment: N Result Comment: Prot ein electrophoresis scan will follow via computer,mail, or forging die sinker delivery. Performed By: #### L 3130.0010, L3100.3425 ####[facility] [address] [place], [address] Protein [Mass/Vol] 5.6 g/dL Low 6.0-8.5 [facility] Comment on above: Order Comment: N Performed By: #### L 3130.0010, L3100.3425 ####[facility] [address] [place], [address] [place] Lambda Light Chainson 06-05-2025 FR KAPPA LT CHN 16.7 mg/L Normal 3.3-19.4 [facility] Comment on above: Performed By: #### L 3130.0010, L3100.3425 ####[facility] [address] [place], [address] FR LAMBDA LT CH 2.6 mg/L Abnormal 5.7-26.3 [facility] Comment on above: Performed By: #### L 3130.0010, L3100.3425 ####[facility] [address] [place], [address] KAPPA/LAMBDA % 6.42 Abnormal 0.26-1.65 [facility] Comment on above: Result Comment: Perf ormed at: - [facility] [address] Director: Micky Arreola PhD, Phone: [phone] Performed By: #### L 3130.0010, L3884.3428 ####[facility] [address] [place], [address] Absolute lymphocyte countOrd ered By: Jenn Perez on 05-31-2025 Lymphocytes Auto (Unsp spec) [#/Vol] 0.41 10*3/uL Low 0.83-4.51 [facility] Absolute neutrophil countOrd ered By: Jenn Perez on 05-31-2025 Neutrophils (Bld) [#/Vol] 3.3 10*3/uL 2.0-7.7 [facility] Albumin Elph [Mass/Vol]Order ed By: Jenn Perez on 05-31-2025 Albumin [Mass/Vol] 3.3 g/dL 2.9-4.4 [facility] Anion gap in Serum or Plasma Ordered By: Jenn Perez on 05-31-2025 Anion gap [Moles/Vol] 11 mmol/L 5-15 [facility] Automated lymphocyte count a s percentage of total leukocytesOrdered By: Jenn Chris on 05-31-2025 Lymphocytes/100 WBC Auto (Unsp spec) 9.6 % Low 19-41 [facility] BUN/creatinine ratioOrdered By: [facility] on 05-31-2025 Urea nitrogen/Creatinine [Mass ratio] 20.2 mg/mg High 10-20 [facility] Basophil percentageOrdered B y: Georginadayanna Perez on 05-31-2025 Basophils/100 WBC (Bld) 0.9 % 0-1 [facility] Bilirubin, totalOrdered By: Jenn Chris on 05-31-2025 Bilirubin [Mass/Vol] 0.29 mg/dL 0.00-1.30 [facility] CBC W/Diff, Automatedon Absolute Lymph 0.41 X10 3/uL Low 0.83-4.51 [facility] Comment on above: Performed By: #### L 100.0100, L500.4050 ####[facility] [address] [place], [address] Absolute Neut 3.3 X10 3/uL Normal 2.0-7.7 [facility] Comment on above: Performed By: #### L 100.0100, L500.4050 ####[facility] [address] [place], [address] Basophils/100 WBC (Bld) 0.9 % Normal 0-1 [facility] Comment on above: Performed By: #### L 100.0100, L500.4050 ####[facility] [address] [place], [address] Eosinophils/100 WBC (Bld) 2.6 % Normal 0-5 [facility] Comment on above: Performed By: #### L 100.0100, L500.4050 ####[facility] [address] [place], [address] Erythrocyte distribution width (RBC) [Ratio] 14.1 % Normal 11.6-14.6 [facility] Comment on above: Performed By: #### L 100.0100, L500.4050 ####[facility] [address] [place], [address] Hematocrit (Bld) [Volume fraction] 41.6 % Normal 40-54 [facility] Comment on above: Performed By: #### L 100.0100, L500.4050 ####[facility] [address] [place], [address] Hemoglobin (Bld) [Mass/Vol] 13.6 g/dL Normal 13.0-16.5 [facility] Comment on above: Performed By: #### L 100.0100, L500.4050 ####[facility] [address] [place], [address] IG% 0.500 Normal 0.0-0.9 [facility] Comment on above: Result Comment: IG% - Immature Granulocytes (promyelocytes, myelocytes andmetamyelocytes) > 1% indicates that a LEFT SHIFT is Present. Performed By: #### L 100.0100, L500.4050 ####[facility] [address] [place], [address] Lymphocytes/100 WBC (Bld) 9.6 % Low 19-41 [facility] Comment on above: Performed By: #### L 100.0100, L500.4050 ####[facility] [address] [place], [address] MCH (RBC) [Entitic mass] 28.8 pg Normal 27.0-32.0 [facility] Comment on above: Performed By: #### L 100.0100, L500.4050 ####[facility] [address] [place], [address] MCHC (RBC) [Mass/Vol] 32.7 g/dL Normal 32-36 [facility] Comment on above: Performed By: #### L 100.0100, L500.4050 ####[facility] [address] [place], [address] MCV (RBC) [Entitic vol] 87.9 fL Normal 80-94 [facility] Comment on above: Performed By: #### L 100.0100, L500.4050 ####[facility] [address] [place], [address] Monocytes/100 WBC (Bld) 8.0 % Normal 0-10 [facility] Comment on above: Performed By: #### L 100.0100, L500.4050 ####[facility] [address] [place], [address] Neutrophils/100 WBC (Bld) 78.4 % High 47-70 [facility] Comment on above: Performed By: #### L 100.0100, L500.4050 ####[facility] [address] [place], [address] Nucleated RBC (Bld) [#/Vol] 0 10*3/uL Normal 0-5 [facility] Comment on above: Performed By: #### L 100.0100, L500.4050 ####[facility] [address] [place], [address] Platelet mean volume (Bld) [Entitic vol] 10.6 fL Normal 6.2-12.0 [facility] Comment on above: Performed By: #### L 100.0100, L500.4050 ####[facility] [address] [place], [address] Platelets (Bld) [#/Vol] 152 10*3/uL Normal 150-450 [facility] Comment on above: Performed By: #### L 100.0100, L500.4050 ####[facility] [address] [place], [address] RBC (Bld) [#/Vol] 4.73 10*6/uL Normal 4.6-6.2 [facility] Comment on above: Performed By: #### L 100.0100, L500.4050 ####[facility] [address] [place], [address] RDW SD 45.5 fl High 35.1-43.9 [facility] Comment on above: Performed By: #### L 100.0100, L500.4050 ####[facility] [address] [place], [address] WBC (Bld) [#/Vol] 4.3 10*3/uL Low 4.4-11.0 [facility] Comment on above: Performed By: #### L 100.0100, L500.4050 ####[facility] [address] [place], [address] Carbon dioxide, total [Moles /volume] in Central venous bloodOrdered By: Jenn Perez on 05-31-2025 CO2 [Moles/Vol] 25.7 mmol/L 21.0-32.0 [facility] Chloride assayOrdered By: Lorene Perez on 05-31-2025 Chloride [Moles/Vol] 102 mmol/L 98-108 [facility] Comprehensive Metabolic Prof ilon 05-31-2025 Albumin [Mass/Vol] 4.1 g/dL Normal 3.4-4.8 [facility] Comment on above: Performed By: #### L 100.0100, L500.4050 ####[facility] [address] [place], [address] Albumin/Globulin [Mass ratio] 2.0 {ratio} Normal 0.9-2.4 [facility] Comment on above: Performed By: #### L 100.0100, L500.4050 ####[facility] [address] [place], [address] ALK PHOS 66 U/L Normal 40-129 [facility] Comment on above: Performed By: #### L 100.0100, L500.4050 ####[facility] [address] [place], [address] ALT [Catalytic activity/Vol] 25 U/L Normal <=46 [facility] Comment on above: Performed By: #### L 100.0100, L500.4050 ####[facility] [address] [place], [address] AST [Catalytic activity/Vol] 22 U/L Normal <=37 [facility] Comment on above: Performed By: #### L 100.0100, L500.4050 ####[facility] [address] [place], [address] Bilirubin [Mass/Vol] 0.29 mg/dL Normal 0.00-1.30 [facility] Comment on above: Performed By: #### L 100.0100, L500.4050 ####[facility] [address] [place], [address] BUN/CRE 20.2 RATIO High 10-20 [facility] Comment on above: Performed By: #### L 100.0100, L500.4050 ####[facility] [address] [place], [address] Calcium [Mass/Vol] 9.4 mg/dL Normal 7.6-11.0 [facility] Comment on above: Performed By: #### L 100.0100, L500.4050 ####[facility] [address] [place], [address] Chloride [Moles/Vol] 102 mmol/L Normal 98-108 [facility] Comment on above: Performed By: #### L 100.0100, L500.4050 ####[facility] [address] [place], [address] CO2 [Moles/Vol] 25.7 mmol/L Normal 21.0-32.0 [facility] Comment on above: Performed By: #### L 100.0100, L500.4050 ####[facility] [address] [place], [address] Creatinine [Mass/Vol] 0.98 mg/dL Normal 0.70-1.20 [facility] Comment on above: Performed By: #### L 100.0100, L500.4050 ####[facility] [address] [place], [address] ECRCL 72.53 ml/min Normal 50-250 [facility] Comment on above: Performed By: #### L 100.0100, L500.4050 ####[facility] [address] [place], [address] GAP 11 Normal 5-15 [facility] Comment on above: Performed By: #### L 100.0100, L500.4050 ####[facility] [address] [place], [address] GFR/1.73 sq M.predicted among non-blacks MDRD (S/P/Bld) [Vol rate/Area] 84 mL/min/{1.73_m2} Normal >60 [facility] Comment on above: Result Comment: mL/m in/1.73m2 CKD-EPI Creatinine Equation (2020) Performed By: #### L 100.0100, L500.4050 ####[facility] [address] [place], [address] Globulin (S) [Mass/Vol] 2.0 g/dL Low 2.2-4.2 [facility] Comment on above: Performed By: #### L 100.0100, L500.4050 ####[facility] [address] [place], [address] Glucose [Mass/Vol] 110 mg/dL High 70-99 [facility] Comment on above: Performed By: #### L 100.0100, L500.4050 ####[facility] [address] [place], [address] Potassium [Moles/Vol] 4.3 mmol/L Normal 3.3-5.1 [facility] Comment on above: Performed By: #### L 100.0100, L500.4050 ####[facility] [address] [place], [address] Sodium [Moles/Vol] 139 mmol/L Normal 133-145 [facility] Comment on above: Performed By: #### L 100.0100, L500.4050 ####[facility] [address] [place], [address] T PROT 6.1 g/dL Normal 5.9-8.4 [facility] Comment on above: Performed By: #### L 100.0100, L500.4050 ####[facility] [address] [place], [address] Urea nitrogen [Mass/Vol] 20 mg/dL High 4-19 [facility] Comment on above: Performed By: #### L 100.0100, L500.4050 ####[facility] [address] [place], [address] Eosinophil percentageOrdered By: Jenn Perez on 05-31-2025 Eosinophils/100 WBC (Bld) 2.6 % 0-5 [facility] Erythrocyte distribution wid th ratioOrdered By: Jenn Perez on 05-31-2025 Erythrocyte distribution width (RBC) [Ratio] 14.1 % 11.6-14.6 [facility] Erythrocyte distribution wid th standard deviationOrdered By: Jenn Perez on 05-31-2025 Erythrocyte distribution width (RBC) [Ratio] 45.5 fl High 35.1-43.9 [facility] Glomerular filtration rate ( GFR) estimation/1.73 sq m using serum, plasma, or whole bOrdered By: Jenn Perez on 05-31-2025 GFR/1.73 sq M.predicted among non-blacks MDRD (S/P/Bld) [Vol rate/Area] 84 mL/min/{1.73_m2} >60 [facility] Comment on above: mL/min/1.73m2 CKD-EP I Creatinine Equation (2020) Hematocrit Auto (Bld) [Volum e fraction]Ordered By: [facility] on 05-31-2025 Hematocrit (Bld) [Volume fraction] 41.6 % 40-54 [facility] Hemoglobin measurementOrdere d By: Jenn Perez on 05-31-2025 Hemoglobin (Bld) [Mass/Vol] 13.6 g/dL 13.0-16.5 [facility] Immature granulocytes/100 WB C Auto (Bld)Ordered By: [facility] on 05-31-2025 Immature granulocytes/100 WBC (Bld) 0.500 % 0.0-0.9 [facility] Comment on above: IG% - Immature Granu locytes (promyelocytes, myelocytes and metamyelocytes) > 1% indicates that a LEFT SHIFT is Present. Interpretation of serum or p lasma protein pattern by immunofixation (narrative resultOrdered By: Jenn Perez on 05-31-2025 Protein Fractions Immunofixation Johnny [Interp] 0.1 g/dL High Not Observed [facility] Laboratory - Chemistry and C hemistry - challengeOrdered By: [facility] on 05-31-2025 AST [Catalytic activity/Vol] 22 U/L <38 [facility] MCV (mean corpuscular volume ) determinationOrdered By: [facility] on 05-31-2025 MCV (RBC) [Entitic vol] 87.9 fL 80-94 [facility] Magnesiumon 05-31-2025 Magnesium [Mass/Vol] 1.7 mg/dL Normal 1.5-2.2 [facility] Comment on above: Performed By: #### L 501.5200, L501.2300 ####[facility] [address] [place], [address] Magnesium measurement (mass/ volume)Ordered By: Jenn Perez on 05-31-2025 Magnesium (Unsp spec) [Mass/Vol] 1.7 mg/dL 1.5-2.2 [facility] Mean corpuscular hemoglobin (MCH) determinationOrdered By: [facility] on 05-31-2025 MCH (RBC) [Entitic mass] 28.8 pg 27.0-32.0 [facility] Mean corpuscular hemoglobin concentration (MCHC) determinationOrdered By: [facility] on 05-31-2025 MCHC (RBC) [Mass/Vol] 32.7 g/dL 32-36 [facility] Mean platelet volume determi nationOrdered By: [facility] Chris on 05-31-2025 Platelet mean volume (Bld) [Entitic vol] 10.6 fL 6.2-12.0 [facility] Monocyte percentageOrdered B y: [facility] Chris on 05-31-2025 Monocytes/100 WBC (Bld) 8.0 % 0-10 [facility] Neutrophil percentageOrdered By: [facility] Chris on 05-31-2025 Neutrophils/100 WBC (Bld) 78.4 % High 47-70 [facility] No Panel InformationOrdered By: [facility] on 05-31-2025 Addendum Document Comment . [facility] Comment on above: Protein electrophore sis scan will follow via computer,mail, or forging die sinker delivery. Nucleated red blood cell per centageOrdered By: Jenn Perez on 05-31-2025 Nucleated RBC/100 WBC (Bld) [Ratio] 0 % 0-5 [facility] Oncology Visit Reporton Oncology Visit Report Normal [facility] Phosphoruson 05-31-2025 Phosphate [Mass/Vol] 2.9 mg/dL Normal 2.7-4.5 [facility] Comment on above: Performed By: #### L 501.5200, L501.2300 ####[facility] [address] [place], [address] Platelet countOrdered By: Lorene Perez on 05-31-2025 Platelets (Bld) [#/Vol] 152 10*3/uL 150-450 [facility] Potassium measurement (mass/ volume)Ordered By: Jenn Perez on 05-31-2025 Potassium (Unsp spec) [Mass/Vol] 4.3 mmol/L 3.3-5.1 [facility] RBC Auto (Bld) [#/Vol]Ordere d By: Jenn Perez on 05-31-2025 RBC (Bld) [#/Vol] 4.73 10*6/uL 4.6-6.2 [facility] Serum creatinine measurement (mass/volume)Ordered By: Jenn Perez on 05-31-2025 Creatinine [Mass/Vol] 0.98 mg/dL 0.70-1.20 [facility] Serum globulin measurementOr dered By: Jenn Perez on 05-31-2025 Globulin (S) [Mass/Vol] 2.0 g/dL Low 2.2-4.2 [facility] Serum glucose measurement (m ass/volume)Ordered By: Jenn Perez on 05-31-2025 Glucose [Mass/Vol] 110 mg/dL High 70-99 [facility] Serum immunoglobulin kappa l ight chains/immunoglobulin lambda light chains mass ratioOrdered By: Jenn Perez on 05-31-2025 Immunoglobulin light chains.kappa/Immunoglobu dav light chains.lambda (S) [Mass ratio] 6.42 High 0.26-1.65 [facility] Comment on above: Performed at: [address] [id number] Director: Micky Arreola PhD, Phone: [phone] Serum or plasma IgA measurem ent (mass/volume)Ordered By: Jenn Perez on 05-31-2025 IgA [Mass/Vol] 19 mg/dL Low 61-437 [facility] Comment on above: Result confirmed on concentration. Serum or plasma IgG measurem ent (mass/volume)Ordered By: Jenn Perez on 05-31-2025 IgG [Mass/Vol] 426 mg/dL Low 603-1613 [facility] Serum or plasma alanine oropeza otransferase (ALT) measurementOrdered By: Jenn Perez on 05-31-2025 ALT [Catalytic activity/Vol] 25 U/L <47 [facility] Serum or plasma albumin giovanny urement (mass/volume)Ordered By: Jenn Perez on 05-31-2025 Albumin [Mass/Vol] 4.1 g/dL 3.4-4.8 [facility] Serum or plasma albumin/glob ulin mass ratioOrdered By: Jenn Perez on 05-31-2025 Albumin/Globulin [Mass ratio] 2.0 {ratio} 0.9-2.4 [facility] Serum or plasma alkaline stacy sphatase measurementOrdered By: Jenn Perez on 05-31-2025 ALP [Catalytic activity/Vol] 66 U/L 40-129 [facility] Serum or plasma alpha 1 glob ulin measurement by electrophoresis (mass/volume)Ordered By: Jenn Perez on 05-31-2025 Alpha 1 globulin Elph [Mass/Vol] 0.2 g/dL 0.0-0.4 [facility] Alpha 1 globulin Elph [Mass/Vol] 0.8 g/dL 0.4-1.0 [facility] Serum or plasma beta globuli n measurement by electrophoresis (mass/volume)Ordered By: Jenn Perez on 05-31-2025 Beta globulin Elph [Mass/Vol] 0.8 g/dL 0.7-1.3 [facility] Serum or plasma calcium giovanny urement (mass/volume)Ordered By: Jenn Perez on 05-31-2025 Calcium [Mass/Vol] 9.4 mg/dL 7.6-11.0 [facility] Serum or plasma gamma globul in measurement by electrophoresis (mass/volume)Ordered By: Jenn Perez on 05-31-2025 Gamma globulin Elph [Mass/Vol] 0.4 g/dL 0.4-1.8 [facility] Serum or plasma immunoelectr ophoresis interpretation (nominal result)Ordered By: Jenn Perez on 05-31-2025 Interpretation IEP [Interp] Comment High . [facility] Comment on above: Immunofixation shows IgG monoclonal protein with kappalight chain specificity. PLEASE NOTE: Samples from patients receiving DARZALEX(R)(daratumumab) or SARCLISA(R)(isatuximab-irfc) treatmentcan appear as an "IgG kappa" and mask a complete response(CR). If this patient is receiving these therapies, thisIFE assay interference can be removed by ordering testnumber [id number]-"Immunofixation, Daratumumab-Specific,Serum" or [id number]-"Immunofixation, Isatuximab-Specific,Serum" and submitting a new sample for testing or bycalling the lab to add this test to the current sample. Serum or plasma immunoglobul in kappa light chains measurement (mass/volume)Ordered By: Jenn Perez on 05-31-2025 Immunoglobulin light chains.kappa [Mass/Vol] 16.7 mg/L 3.3-19.4 [facility] Serum or plasma protein giovanny urement (mass/volume)Ordered By: Jenn Perez on 05-31-2025 Protein [Mass/Vol] 5.6 g/dL Low 6.0-8.5 [facility] Serum or plasma urea nitroge n measurement (mass/volume)Ordered By: Jenn Perez on 05-31-2025 Urea nitrogen [Mass/Vol] 20 mg/dL High 4-19 [facility] Sodium levelOrdered By: Georgina Perez on 05-31-2025 Sodium [Moles/Vol] 139 mmol/L 133-145 [facility] Total proteinOrdered By: Lam Perez on 05-31-2025 Protein [Mass/Vol] 6.1 g/dL 5.9-8.4 [facility] White blood cell (WBC) count Ordered By: Jenn Perez on 05-31-2025 WBC (Bld) [#/Vol] 4.3 10*3/uL Low 4.4-11.0 [facility] CBC W/Diff, Automatedon Absolute Neut Normal 2.0-7.7 [facility] Comment on above: Result Comment: LASHONDA SIMON REQUEST Performed By: #### L 500.4050, L100.0100 ####[facility] [address] [place], [address] HCT Normal 40-54 [facility] Comment on above: Result Comment: OM C ANCEL REQUEST Performed By: #### L 500.4050, L100.0100 ####[facility] [address] [place], [address] HGB Normal 13.0-16.5 [facility] Comment on above: Result Comment: OM C ANCEL REQUEST Performed By: #### L 500.4050, L100.0100 ####[facility] [address] [place], [address] MCH Normal 27.0-32.0 [facility] Comment on above: Result Comment: OM C ANCEL REQUEST Performed By: #### L 500.4050, L100.0100 ####[facility] [address] [place], [address] MCHC Normal 32-36 [facility] Comment on above: Result Comment: OM C ANCEL REQUEST Performed By: #### L 500.4050, L100.0100 ####[facility] [address] [place], [address] MCV Normal 80-94 [facility] Comment on above: Result Comment: OM C ANCEL REQUEST Performed By: #### L 500.4050, L100.0100 ####[facility] [address] [place], [address] NEUT% Normal 47-70 [facility] Comment on above: Result Comment: OM C ANCEL REQUEST Performed By: #### L 500.4050, L100.0100 ####[facility] [address] [place], [address] PLT Normal 150-450 [facility] Comment on above: Result Comment: OM C ANCEL REQUEST Performed By: #### L 500.4050, L100.0100 ####[facility] [facility] [address] [place], [address] RBC Normal 4.6-6.2 [facility] Comment on above: Result Comment: OM C ANCEL REQUEST Performed By: #### L 500.4050, L100.0100 ####[facility] [address] [place], [address] RDW CV Normal 11.6-14.6 [facility] Comment on above: Result Comment: OM C ANCEL REQUEST Performed By: #### L 500.4050, L100.0100 ####[facility] [address] [place], [address] RDW SD Normal 35.1-43.9 [facility] Comment on above: Result Comment: OM C ANCEL REQUEST Performed By: #### L 500.4050, L100.0100 ####[facility] [address] [place], [address] WBC Normal 4.4-11.0 [facility] Comment on above: Result Comment: OM C ANCEL REQUEST Performed By: #### L 500.4050, L100.0100 ####[facility] [address] [place], [address] Comprehensive Metabolic Prof ilon 05-30-2025 ALB Normal 3.4-4.8 [facility] Comment on above: Result Comment: OM C ANCEL REQUEST Performed By: #### L 500.4050, L100.0100 ####[facility] [address] [place], [address] ALK PHOS Normal 40-129 [facility] Comment on above: Result Comment: OM C ANCEL REQUEST Performed By: #### L 500.4050, L100.0100 ####[facility] [address] [place], [address] ALT Normal <=46 [facility] Comment on above: Result Comment: OM C ANCEL REQUEST Performed By: #### L 500.4050, L100.0100 ####[facility] [address] [place], [address] AST Normal <=37 [facility] Comment on above: Result Comment: OM C ANCEL REQUEST Performed By: #### L 500.4050, L100.0100 ####[facility] [address] [place], [address] BUN Normal 4-19 [facility] Comment on above: Result Comment: OM C ANCEL REQUEST Performed By: #### L 500.4050, L100.0100 ####[facility] [address] [place], [address] BUN/CRE Normal 10-20 [facility] Comment on above: Result Comment: OM C ANCEL REQUEST Performed By: #### L 500.4050, L100.0100 ####[facility] [address] [place], [address] Calcium Normal 7.6-11.0 [facility] Comment on above: Result Comment: OM C ANCEL REQUEST Performed By: #### L 500.4050, L100.0100 ####[facility] [address] [place], [address] CL Normal 98-108 [facility] Comment on above: Result Comment: OM C ANCEL REQUEST Performed By: #### L 500.4050, L100.0100 ####[facility] [address] [place], [address] CO2 Normal 21.0-32.0 [facility] Comment on above: Result Comment: OM C ANCEL REQUEST Performed By: #### L 500.4050, L100.0100 ####[facility] [address] [place], [address] CREAT,SERUM Normal 0.70-1.20 [facility] Comment on above: Result Comment: OM C ANCEL REQUEST Performed By: #### L 500.4050, L100.0100 ####[facility] [address] [place], [address] eGFR Normal >60 [facility] Comment on above: Result Comment: OM C ANCEL REQUEST Performed By: #### L 500.4050, L100.0100 ####[facility] [address] [place], [address] GAP Normal 5-15 [facility] Comment on above: Result Comment: OM C ANCEL REQUEST Performed By: #### L 500.4050, L100.0100 ####[facility] [address] [place], [address] GLU Normal 70-99 [facility] Comment on above: Result Comment: OM C ANCEL REQUEST Performed By: #### L 500.4050, L100.0100 ####[facility] [address] [place], [address] Potassium Normal 3.3-5.1 [facility] Comment on above: Result Comment: OM C ANCEL REQUEST Performed By: #### L 500.4050, L100.0100 ####[facility] [address] [place], [address] T BILI Normal 0.00-1.30 [facility] Comment on above: Result Comment: OM C ANCEL REQUEST Performed By: #### L 500.4050, L100.0100 ####[facility] [address] [place], [address] T PROT Normal 5.9-8.4 [facility] Comment on above: Result Comment: OM C ANCEL REQUEST Performed By: #### L 500.4050, L100.0100 ####[facility] [address] [place], [address] Comprehensive Metabolic Profil Normal 133-145 [facility] Comment on above: Result Comment: OM C ANCEL REQUEST Performed By: #### L 500.4050, L100.0100 ####[facility] [address] [place], [address] ELINA + Protein Elect, Serumon 05-30-2025 A/G RATIO Normal [facility] Comment on above: Result Comment: OM C ANCEL REQUEST Performed By: #### L 3100.3425, L3130.0010 ####[facility] [address] [place], [address] ALBUMIN Normal [facility] Comment on above: Result Comment: OM C ANCEL REQUEST Performed By: #### L 3100.3425, L3130.0010 ####[facility] [address] [place], [address] YYNUK-3-YPUJ Normal [facility] Comment on above: Result Comment: OM C ANCEL REQUEST Performed By: #### L 3100.3425, L3130.0010 ####[facility] [address] [place], [address] ZONED-3-GJJL Normal [facility] Comment on above: Result Comment: OM C ANCEL REQUEST Performed By: #### L 3100.3425, L3130.0010 ####[facility] [address] [place], [address] BETA GLOBULIN Normal [facility] Comment on above: Result Comment: OM C ANCEL REQUEST Performed By: #### L 3100.3425, L3130.0010 ####[facility] [address] [place], [address] GAMMA GLOBULIN Normal [facility] Comment on above: Result Comment: OM C ANCEL REQUEST Performed By: #### L 3100.3425, L3130.0010 ####[facility] [address] [place], [address] IMMUNOGLOB A QN Normal [facility] Comment on above: Result Comment: OM C ANCEL REQUEST Performed By: #### L 3100.3425, L3130.0010 ####[facility] [address] [place], [address] IMMUNOGLOB G QN Normal [facility] Comment on above: Result Comment: OM C ANCEL REQUEST Performed By: #### L 3100.3425, L3130.0010 ####[facility] [address] [place], [address] IMMUNOGLOB M QN Normal [facility] Comment on above: Result Comment: OM C ANCEL REQUEST Performed By: #### L 3100.3425, L3130.0010 ####[facility] [address] [place], [address] M-Raúl Normal [facility] Comment on above: Result Comment: OM C ANCEL REQUEST Performed By: #### L 3100.3425, L3130.0010 ####[facility] [address] [place], [address] PROTEIN,TOTAL Normal 6.0-8.5 [facility] Comment on above: Result Comment: OM C ANCEL REQUEST Performed By: #### L 3100.3425, L3130.0010 ####[facility] [address] [place], [address] [place] Lambda Light Chainson 05-30-2025 FR KAPPA LT CHN Normal [facility] Comment on above: Result Comment: OM C ANCEL REQUEST Performed By: #### L 3100.3425, L3130.0010 ####[facility] [address] [place], [address] FR LAMBDA LT CH Normal [facility] Comment on above: Result Comment: OM C ANCEL REQUEST Performed By: #### L 3100.3425, L3130.0010 ####[facility] [address] [place], [address] KAPPA/LAMBDA % Normal [facility] Comment on above: Result Comment: LASHONDA SIMON REQUEST Performed By: #### L 3100.3425, L3130.0010 ####[facility] [address] [place], [address] Re-Evaluation - PT (1)on Re-Evaluation - PT (1) Normal [facility] Plastic Surgery Visit Report on 05-10-2025 Plastic Surgery Visit Report Normal [facility] ELINA + Protein Elect, Serumon 05-07-2025 Albumin [Mass/Vol] 3.3 g/dL Normal 2.9-4.4 [facility] Comment on above: Order Comment: N Performed By: #### L 500.4050, L3100.3425, L3130.0010, L100.0100 ####[facility] [address] [place], [address] Albumin/Globulin [Mass ratio] 1.6 {ratio} Normal 0.7-1.7 [facility] Comment on above: Order Comment: N Performed By: #### L 500.4050, L3100.3425, L3130.0010, L100.0100 ####[facility] [address] [place], [address] AGQOZ-7-PDGI 0.2 g/dL Normal 0.0-0.4 [facility] Comment on above: Order Comment: N Performed By: #### L 500.4050, L3100.3425, L3130.0010, L100.0100 ####[facility] [address] [place], [address] JVJGC-7-GNHQ 0.8 g/dL Normal 0.4-1.0 [facility] Comment on above: Order Comment: N Performed By: #### L 500.4050, L3100.3425, L3130.0010, L100.0100 ####[facility] [address] [place], [address] BETA GLOBULIN 0.7 g/dL Normal 0.7-1.3 [facility] Comment on above: Order Comment: N Performed By: #### L 500.4050, L3100.3425, L3130.0010, L100.0100 ####[facility] [address] [place], [address] GAMMA GLOBULIN 0.4 g/dL Normal 0.4-1.8 [facility] Comment on above: Order Comment: N Performed By: #### L 500.4050, L3100.3425, L3130.0010, L100.0100 ####[facility] [address] [place], [address] Globulin (S) [Mass/Vol] 2.1 g/dL Abnormal 2.2-3.9 [facility] Comment on above: Order Comment: N Performed By: #### L 500.4050, L3100.3425, L3130.0010, L100.0100 ####[facility] [address] [place], [address] ELINA RESULT,S Comment Abnormal . [facility] Comment on above: Order Comment: N Result Comment: Immu nofixation shows IgG monoclonal protein with kappalight chain specificity. PLEASE NOTE: Samples from patients receiving DARZALEX(R)(daratumumab) or SARCLISA(R)(isatuximab-multicare healthc) treatmentcan appear as an "IgG kappa" and mask a complete response(CR). If this patient is receiving these therapies, thisIFE assay interference can be removed by ordering testnumber [id number]-"Immunofixation, Daratumumab-Specific,Serum" or [id number]-"Immunofixation, Isatuximab-Specific,Serum" and submitting a new sample for testing or bycalling the lab to add this test to the current sample. Performed By: #### L 500.4050, L3100.3425, L3130.0010, L100.0100 ####[facility] [address] [place], [address] IMMUNOGLOB A QN 18 mg/dL Low 61-437 [facility] Comment on above: Order Comment: N Result Comment: Resu lt confirmed on concentration. Performed By: #### L 500.4050, L3100.3425, L3130.0010, L100.0100 ####[facility] [address] [place], [address] IMMUNOGLOB G QN 389 mg/dL Low 603-1613 [facility] Comment on above: Order Comment: N Performed By: #### L 500.4050, L3100.3425, L3130.0010, L100.0100 ####[facility] [address] [place], [address] IMMUNOGLOB M QN 10 mg/dL Low 20-172 [facility] Comment on above: Order Comment: N Result Comment: Resu lt confirmed on concentration. Performed By: #### L 500.4050, L3100.3425, L3130.0010, L100.0100 ####[facility] [address] [place], [address] M-Raúl 0.1 g/dL Abnormal Not Observed [facility] Comment on above: Order Comment: N Performed By: #### L 500.4050, L3100.3425, L3130.0010, L100.0100 ####[facility] [address] [place], [address] NOTE: Comment Normal . [facility] Comment on above: Order Comment: N Result Comment: Prot ein electrophoresis scan will follow via computer,mail, or forging die sinker delivery. Performed By: #### L 500.4050, L3100.3425, L3130.0010, L100.0100 ####[facility] [address] [place], [address] Protein [Mass/Vol] 5.4 g/dL Low 6.0-8.5 [facility] Comment on above: Order Comment: N Performed By: #### L 500.4050, L3100.3425, L3130.0010, L100.0100 ####[facility] [address] [place], [address] [place] Lambda Light Chainson 05-07-2025 FR KAPPA LT CHN 10.8 mg/L Normal 3.3-19.4 [facility] Comment on above: Performed By: #### L 500.4050, L3100.3425, L3130.0010, L100.0100 ####[facility] [address] [place], [address] FR LAMBDA LT CH 2.1 mg/L Abnormal 5.7-26.3 [facility] Comment on above: Performed By: #### L 500.4050, L3100.3425, L3130.0010, L100.0100 ####[facility] [address] [place], [address] KAPPA/LAMBDA % 5.14 Abnormal 0.26-1.65 [facility] Comment on above: Result Comment: Perf ormed at: CB - [facility] [address] [id number] Director: Micky Arreola PhD, Phone: [phone] Performed By: #### L 500.4050, L3100.3425, L3130.0010, L100.0100 ####[facility] [address] [place], [address] CBC W/Diff, Automatedon 080 Absolute Neut Normal 2.0-7.7 [facility] Comment on above: Result Comment: DUPL ICATE ORDER Performed By: #### L 500.4050, L100.0100 ####[facility] [address] [place], [address] HCT Normal 40-54 [facility] Comment on above: Result Comment: DUPL ICATE ORDER Performed By: #### L 500.4050, L100.0100 ####[facility] [address] [place], [address] HGB Normal 13.0-16.5 [facility] Comment on above: Result Comment: DUPL ICATE ORDER Performed By: #### L 500.4050, L100.0100 ####[facility] [address] [place], [address] MCH Normal 27.0-32.0 [facility] Comment on above: Result Comment: DUPL ICATE ORDER Performed By: #### L 500.4050, L100.0100 ####[facility] [address] [place], [address] MCHC Normal 32-36 [facility] Comment on above: Result Comment: DUPL ICATE ORDER Performed By: #### L 500.4050, L100.0100 ####[facility] [address] [place], [address] MCV Normal 80-94 [facility] Comment on above: Result Comment: DUPL ICATE ORDER Performed By: #### L 500.4050, L100.0100 ####[facility] [address] [place], [address] NEUT% Normal 47-70 [facility] Comment on above: Result Comment: DUPL ICATE ORDER Performed By: #### L 500.4050, L100.0100 ####[facility] [address] [place], [address] PLT Normal 150-450 [facility] Comment on above: Result Comment: DUPL ICATE ORDER Performed By: #### L 500.4050, L100.0100 ####[facility] [address] [place], [address] RBC Normal 4.6-6.2 [facility] Comment on above: Result Comment: DUPL ICATE ORDER Performed By: #### L 500.4050, L100.0100 ####[facility] [address] [place], [address] RDW CV Normal 11.6-14.6 [facility] Comment on above: Result Comment: DUPL ICATE ORDER Performed By: #### L 500.4050, L100.0100 ####[facility] [address] [place], [address] RDW SD Normal 35.1-43.9 [facility] Comment on above: Result Comment: DUPL ICATE ORDER Performed By: #### L 500.4050, L100.0100 ####[facility] [address] [place], [address] WBC Normal 4.4-11.0 [facility] Comment on above: Result Comment: DUPL ICATE ORDER Performed By: #### L 500.4050, L100.0100 ####[facility] [address] [place], [address] Comprehensive Metabolic Prof ilon 05-03-2025 ALB Normal 3.4-4.8 [facility] Comment on above: Result Comment: DUPL ICATE ORDER Performed By: #### L 500.4050, L100.0100 ####[facility] [address] [place], [address] ALK PHOS Normal 40-129 [facility] Comment on above: Result Comment: DUPL ICATE ORDER Performed By: #### L 500.4050, L100.0100 ####[facility] [address] [place], [address] ALT Normal <=46 [facility] Comment on above: Result Comment: DUPL ICATE ORDER Performed By: #### L 500.4050, L100.0100 ####[facility] [address] [place], [address] AST Normal <=37 [facility] Comment on above: Result Comment: DUPL ICATE ORDER Performed By: #### L 500.4050, L100.0100 ####[facility] [address] [place], [address] BUN Normal 4-19 [facility] Comment on above: Result Comment: DUPL ICATE ORDER Performed By: #### L 500.4050, L100.0100 ####[facility] [address] [place], [address] BUN/CRE Normal 10-20 [facility] Comment on above: Result Comment: DUPL ICATE ORDER Performed By: #### L 500.4050, L100.0100 ####[facility] [address] [place], [address] Calcium Normal 7.6-11.0 [facility] Comment on above: Result Comment: DUPL ICATE ORDER Performed By: #### L 500.4050, L100.0100 ####[facility] [address] [place], [address] CL Normal 98-108 [facility] Comment on above: Result Comment: DUPL ICATE ORDER Performed By: #### L 500.4050, L100.0100 ####[facility] [address] [place], [address] CO2 Normal 21.0-32.0 [facility] Comment on above: Result Comment: DUPL ICATE ORDER Performed By: #### L 500.4050, L100.0100 ####[facility] [address] [place], [address] CREAT,SERUM Normal 0.70-1.20 [facility] Comment on above: Result Comment: DUPL ICATE ORDER Performed By: #### L 500.4050, L100.0100 ####[facility] [address] [place], [address] eGFR Normal >60 [facility] Comment on above: Result Comment: DUPL ICATE ORDER Performed By: #### L 500.4050, L100.0100 ####[facility] [address] [place], [address] GAP Normal 5-15 [facility] Comment on above: Result Comment: DUPL ICATE ORDER Performed By: #### L 500.4050, L100.0100 ####[facility] [address] [place], [address] GLU Normal 70-99 [facility] Comment on above: Result Comment: DUPL ICATE ORDER Performed By: #### L 500.4050, L100.0100 ####[facility] [address] [place], [address] Potassium Normal 3.3-5.1 [facility] Comment on above: Result Comment: DUPL ICATE ORDER Performed By: #### L 500.4050, L100.0100 ####[facility] [address] [place], [address] T BILI Normal 0.00-1.30 [facility] Comment on above: Result Comment: DUPL ICATE ORDER Performed By: #### L 500.4050, L100.0100 ####[facility] [address] [place], [address] T PROT Normal 5.9-8.4 [facility] Comment on above: Result Comment: DUPL ICATE ORDER Performed By: #### L 500.4050, L100.0100 ####[facility] [address] [place], [address] Comprehensive Metabolic Profil Normal 133-145 [facility] Comment on above: Result Comment: DUPL ICATE ORDER Performed By: #### L 500.4050, L100.0100 ####[facility] [address] [place], [address] ELINA + Protein Elect, Serumon 05-03-2025 A/G RATIO Normal [facility] Comment on above: Result Comment: DUPL ICATE ORDER Performed By: #### L 3100.3425, L3130.0010 ####[facility] [address] [place], [address] ALBUMIN Normal [facility] Comment on above: Result Comment: DUPL ICATE ORDER Performed By: #### L 3100.3425, L3130.0010 ####[facility] [address] [place], [address] [id number] Normal [facility] Comment on above: Result Comment: DUPL ICATE ORDER Performed By: #### L 3100.3425, L3130.0010 ####[facility] [address] [place], [address] [id number] Normal [facility] Comment on above: Result Comment: DUPL ICATE ORDER Performed By: #### L 3100.3425, L3130.0010 ####[facility] [address] [place], [address] BETA GLOBULIN Normal [facility] Comment on above: Result Comment: DUPL ICATE ORDER Performed By: #### L 3100.3425, L3130.0010 ####[facility] [address] [place], [address] GAMMA GLOBULIN Normal [facility] Comment on above: Result Comment: DUPL ICATE ORDER Performed By: #### L 3100.3425, L3130.0010 ####[facility] [address] [place], [address] IMMUNOGLOB A QN Normal [facility] Comment on above: Result Comment: DUPL ICATE ORDER Performed By: #### L 3100.3425, L3130.0010 ####[facility] [address] [place], [address] IMMUNOGLOB G QN Normal [facility] Comment on above: Result Comment: DUPL ICATE ORDER Performed By: #### L 3100.3425, L3130.0010 ####[facility] [address] [place], [address] IMMUNOGLOB M QN Normal [facility] Comment on above: Result Comment: DUPL ICATE ORDER Performed By: #### L 3100.3425, L3130.0010 ####[facility] [address] [place], [address] M-Raúl Normal [facility] Comment on above: Result Comment: DUPL ICATE ORDER Performed By: #### L 3100.3425, L3130.0010 ####[facility] [address] [place], [address] PROTEIN,TOTAL Normal 6.0-8.5 [facility] Comment on above: Result Comment: DUPL ICATE ORDER Performed By: #### L 3100.3425, L3130.0010 ####[facility] [address] [place], [address] [place] Lambda Light Chainson 05-03-2025 FR KAPPA LT CHN Normal [facility] Comment on above: Result Comment: DUPL ICATE ORDER Performed By: #### L 3100.3425, L3130.0010 ####[facility] [address] [place], [address] FR LAMBDA LT CH Normal [facility] Comment on above: Result Comment: DUPL ICATE ORDER Performed By: #### L 3100.3425, L3130.0010 ####[facility] [address] [place], [address] KAPPA/LAMBDA % Normal [facility] Comment on above: Result Comment: DUPL ICATE ORDER Performed By: #### L 3100.3425, L3130.0010 ####[facility] [address] [place], [place], [address] Absolute lymphocyte countOrd ered By: [facility] on 05-02-2025 Lymphocytes Auto (Unsp spec) [#/Vol] 0.51 10*3/uL Low 0.83-4.51 [facility] Absolute neutrophil countOrd ered By: [facility] Chris on 05-02-2025 Neutrophils (Bld) [#/Vol] 2.3 10*3/uL 2.0-7.7 [facility] Albumin Elph [Mass/Vol]Order ed By: [facility] Chris on 05-02-2025 Albumin [Mass/Vol] 3.3 g/dL 2.9-4.4 [facility] Anion gap in Serum or Plasma Ordered By: [facility] Chris on 05-02-2025 Anion gap [Moles/Vol] 12 mmol/L 5-15 [facility] Automated lymphocyte count a s percentage of total leukocytesOrdered By: [facility] Chris on 05-02-2025 Lymphocytes/100 WBC Auto (Unsp spec) 15.5 % Low 19-41 [facility] BUN/creatinine ratioOrdered By: [facility] on 05-02-2025 Urea nitrogen/Creatinine [Mass ratio] 18.9 mg/mg 10-20 [facility] Basophil percentageOrdered B y: [facility] on 05-02-2025 Basophils/100 WBC (Bld) 0.9 % 0-1 [facility] Bilirubin, totalOrdered By: [facility] Chris on 05-02-2025 Bilirubin [Mass/Vol] 0.28 mg/dL 0.00-1.30 [facility] CBC W/Diff, Automatedon Absolute Lymph 0.51 X10 3/uL Low 0.83-4.51 [facility] Comment on above: Performed By: #### L 500.4050, L3100.3425, L3130.0010, L100.0100 ####[facility] [address] [place], [address] Absolute Neut 2.3 X10 3/uL Normal 2.0-7.7 [facility] Comment on above: Performed By: #### L 500.4050, L3100.3425, L3130.0010, L100.0100 ####[facility] [address] [place], [address] Basophils/100 WBC (Bld) 0.9 % Normal 0-1 [facility] Comment on above: Performed By: #### L 500.4050, L3100.3425, L3130.0010, L100.0100 ####[facility] [address] [place], [address] Eosinophils/100 WBC (Bld) 4.5 % Normal 0-5 [facility] Comment on above: Performed By: #### L 500.4050, L3100.3425, L3130.0010, L100.0100 ####[facility] [address] [place], [address] Erythrocyte distribution width (RBC) [Ratio] 14.1 % Normal 11.6-14.6 [facility] Comment on above: Performed By: #### L 500.4050, L3100.3425, L3130.0010, L100.0100 ####[facility] [address] [place], [address] Hematocrit (Bld) [Volume fraction] 40.1 % Normal 40-54 [facility] Comment on above: Performed By: #### L 500.4050, L3100.3425, L3130.0010, L100.0100 ####[facility] [address] [place], [address] Hemoglobin (Bld) [Mass/Vol] 13.0 g/dL Normal 13.0-16.5 [facility] Comment on above: Performed By: #### L 500.4050, L3100.3425, L3130.0010, L100.0100 ####[facility] [address] [place], [address] IG% 0.300 Normal 0.0-0.9 [facility] Comment on above: Result Comment: IG% - Immature Granulocytes (promyelocytes, myelocytes andmetamyelocytes) > 1% indicates that a LEFT SHIFT is Present. Performed By: #### L 500.4050, L3100.3425, L3130.0010, L100.0100 ####[facility] [address] [place], [address] Lymphocytes/100 WBC (Bld) 15.5 % Low 19-41 [facility] Comment on above: Performed By: #### L 500.4050, L3100.3425, L3130.0010, L100.0100 ####[facility] [address] [place], [address] MCH (RBC) [Entitic mass] 28.9 pg Normal 27.0-32.0 [facility] Comment on above: Performed By: #### L 500.4050, L3100.3425, L3130.0010, L100.0100 ####[facility] [address] [place], [address] MCHC (RBC) [Mass/Vol] 32.4 g/dL Normal 32-36 [facility] Comment on above: Performed By: #### L 500.4050, L3100.3425, L3130.0010, L100.0100 ####[facility] [address] [place], [address] MCV (RBC) [Entitic vol] 89.1 fL Normal 80-94 [facility] Comment on above: Performed By: #### L 500.4050, L3100.3425, L3130.0010, L100.0100 ####[facility] [address] [place], [address] Monocytes/100 WBC (Bld) 10.0 % Normal 0-10 [facility] Comment on above: Performed By: #### L 500.4050, L3100.3425, L3130.0010, L100.0100 ####[facility] [address] [place], [address] Neutrophils/100 WBC (Bld) 68.8 % Normal 47-70 [facility] Comment on above: Performed By: #### L 500.4050, L3100.3425, L3130.0010, L100.0100 ####[facility] [address] [place], [address] Nucleated RBC (Bld) [#/Vol] 0 10*3/uL Normal 0-5 [facility] Comment on above: Performed By: #### L 500.4050, L3100.3425, L3130.0010, L100.0100 ####[facility] [address] [place], [address] Platelet mean volume (Bld) [Entitic vol] 11.1 fL Normal 6.2-12.0 [facility] Comment on above: Performed By: #### L 500.4050, L3100.3425, L3130.0010, L100.0100 ####[facility] [address] [place], [address] Platelets (Bld) [#/Vol] 154 10*3/uL Normal 150-450 [facility] Comment on above: Performed By: #### L 500.4050, L3100.3425, L3130.0010, L100.0100 ####[facility] [address] [place], [address] RBC (Bld) [#/Vol] 4.50 10*6/uL Low 4.6-6.2 [facility] Comment on above: Performed By: #### L 500.4050, L3100.3425, L3130.0010, L100.0100 ####[facility] [address] [place], [address] RDW SD 45.7 fl High 35.1-43.9 [facility] Comment on above: Performed By: #### L 500.4050, L3100.3425, L3130.0010, L100.0100 ####[facility] [address] [place], [address] WBC (Bld) [#/Vol] 3.3 10*3/uL Low 4.4-11.0 [facility] Comment on above: Performed By: #### L 500.4050, L3100.3425, L3130.0010, L100.0100 ####[facility] [address] [place], [address] Carbon dioxide, total [Moles /volume] in Central venous bloodOrdered By: Jenn Perez on 05-02-2025 CO2 [Moles/Vol] 25.6 mmol/L 21.0-32.0 [facility] Chloride assayOrdered By: Lorene Perez on 05-02-2025 Chloride [Moles/Vol] 102 mmol/L 98-108 [facility] Comprehensive Metabolic Prof ilon 05-02-2025 Albumin [Mass/Vol] 3.9 g/dL Normal 3.4-4.8 [facility] Comment on above: Performed By: #### L 500.4050, L3100.3425, L3130.0010, L100.0100 ####[facility] [address] [place], [address] Albumin/Globulin [Mass ratio] 2.0 {ratio} Normal 0.9-2.4 [facility] Comment on above: Performed By: #### L 500.4050, L3100.3425, L3130.0010, L100.0100 ####[facility] [address] [place], [address] ALK PHOS 60 U/L Normal 40-129 [facility] Comment on above: Performed By: #### L 500.4050, L3100.3425, L3130.0010, L100.0100 ####[facility] [address] [place], [address] ALT [Catalytic activity/Vol] 22 U/L Normal <=46 [facility] Comment on above: Performed By: #### L 500.4050, L3100.3425, L3130.0010, L100.0100 ####[facility] [address] [place], [address] AST [Catalytic activity/Vol] 20 U/L Normal <=37 [facility] Comment on above: Performed By: #### L 500.4050, L3100.3425, L3130.0010, L100.0100 ####[facility] [address] [place], [address] Bilirubin [Mass/Vol] 0.28 mg/dL Normal 0.00-1.30 [facility] Comment on above: Performed By: #### L 500.4050, L3100.3425, L3130.0010, L100.0100 ####[facility] [address] [place], [address] BUN/CRE 18.9 RATIO Normal 10-20 [facility] Comment on above: Performed By: #### L 500.4050, L3100.3425, L3130.0010, L100.0100 ####[facility] [address] [place], [address] Calcium [Mass/Vol] 9.5 mg/dL Normal 7.6-11.0 [facility] Comment on above: Performed By: #### L 500.4050, L3100.3425, L3130.0010, L100.0100 ####[facility] [address] [place], [address] Chloride [Moles/Vol] 102 mmol/L Normal 98-108 [facility] Comment on above: Performed By: #### L 500.4050, L3100.3425, L3130.0010, L100.0100 ####[facility] [address] [place], [address] CO2 [Moles/Vol] 25.6 mmol/L Normal 21.0-32.0 [facility] Comment on above: Performed By: #### L 500.4050, L3100.3425, L3130.0010, L100.0100 ####[facility] [address] [place], [address] Creatinine [Mass/Vol] 1.05 mg/dL Normal 0.70-1.20 [facility] Comment on above: Performed By: #### L 500.4050, L3100.3425, L3130.0010, L100.0100 ####[facility] [address] [place], [address] ECRCL 67.69 ml/min Normal 50-250 [facility] Comment on above: Performed By: #### L 500.4050, L3100.3425, L3130.0010, L100.0100 ####[facility] [address] [place], [address] GAP 12 Normal 5-15 [facility] Comment on above: Performed By: #### L 500.4050, L3100.3425, L3130.0010, L100.0100 ####[facility] [address] [place], [address] GFR/1.73 sq M.predicted among non-blacks MDRD (S/P/Bld) [Vol rate/Area] 78 mL/min/{1.73_m2} Normal >60 [facility] Comment on above: Result Comment: mL/m in/1.73m2 CKD-EPI Creatinine Equation (2020) Performed By: #### L 500.4050, L3100.3425, L3130.0010, L100.0100 ####[facility] [address] [place], [address] Globulin (S) [Mass/Vol] 2.0 g/dL Low 2.2-4.2 [facility] Comment on above: Performed By: #### L 500.4050, L3100.3425, L3130.0010, L100.0100 ####[facility] [address] [place], [address] Glucose [Mass/Vol] 148 mg/dL High 70-99 [facility] Comment on above: Performed By: #### L 500.4050, L3100.3425, L3130.0010, L100.0100 ####[facility] [address] [place], [address] Potassium [Moles/Vol] 4.2 mmol/L Normal 3.3-5.1 [facility] Comment on above: Performed By: #### L 500.4050, L3100.3425, L3130.0010, L100.0100 ####[facility] [address] [place], [address] Sodium [Moles/Vol] 140 mmol/L Normal 133-145 [facility] Comment on above: Performed By: #### L 500.4050, L3100.3425, L3130.0010, L100.0100 ####[facility] [address] [place], [address] T PROT 5.9 g/dL Normal 5.9-8.4 [facility] Comment on above: Performed By: #### L 500.4050, L3100.3425, L3130.0010, L100.0100 ####[facility] [address] [place], [address] Urea nitrogen [Mass/Vol] 20 mg/dL High 4-19 [facility] Comment on above: Performed By: #### L 500.4050, L3100.3425, L3130.0010, L100.0100 ####[facility] [address] [place], [address] Eosin[address]Or[address] By: [facility] on 05-02-2025 Eosinophils/100 WBC (Bld) 4.5 % 0-5 [facility] Erythrocyte distribution wid th ratioOrdered By: [facility] on 05-02-2025 Erythrocyte distribution width (RBC) [Ratio] 14.1 % 11.6-14.6 [facility] Erythrocyte distribution wid th standard deviationOrdered By: [facility] Perez on 05-02-2025 Erythrocyte distribution width (RBC) [Ratio] 45.7 fl High 35.1-43.9 [facility] Glomerular filtration rate ( GFR) estimation/1.73 sq m using serum, plasma, or whole bOrdered By: [facility] Perez on 05-02-2025 GFR/1.73 sq M.predicted among non-blacks MDRD (S/P/Bld) [Vol rate/Area] 78 mL/min/{1.73_m2} >60 [facility] Comment on above: mL/min/1.73m2 CKD-EP I Creatinine Equation (2020) Hematocrit Auto (Bld) [Volum e fraction]Ordered By: [facility] on 05-02-2025 Hematocrit (Bld) [Volume fraction] 40.1 % 40-54 [facility] Hemoglobin measurementOrdere d By: [facility] on 05-02-2025 Hemoglobin (Bld) [Mass/Vol] 13.0 g/dL 13.0-16.5 [facility] Immature granulocytes/100 WB C Auto (Bld)Ordered By: [facility] on 05-02-2025 Immature granulocytes/100 WBC (Bld) 0.300 % 0.0-0.9 [facility] Comment on above: IG% - Immature Granu locytes (promyelocytes, myelocytes and metamyelocytes) > 1% indicates that a LEFT SHIFT is Present. Interpretation of serum or p lasma protein pattern by immunofixation (narrative resultOrdered By: Jenn Perez on 05-02-2025 Protein Fractions Immunofixation Johnny [Interp] 0.1 g/dL High Not Observed [facility] Laboratory - Chemistry and C hemistry - challengeOrdered By: Jenn Perez on 05-02-2025 AST [Catalytic activity/Vol] 20 U/L <38 [facility] MCV (mean corpuscular volume ) determinationOrdered By: Jenn Perez on 05-02-2025 MCV (RBC) [Entitic vol] 89.1 fL 80-94 [facility] Mean corpuscular hemoglobin (MCH) determinationOrdered By: Jenn Perez on 05-02-2025 MCH (RBC) [Entitic mass] 28.9 pg 27.0-32.0 [facility] Mean corpuscular hemoglobin concentration (MCHC) determinationOrdered By: Jenn Perez on 05-02-2025 MCHC (RBC) [Mass/Vol] 32.4 g/dL 32-36 [facility] Mean platelet volume determi nationOrdered By: Jenn Perez on 05-02-2025 Platelet mean volume (Bld) [Entitic vol] 11.1 fL 6.2-12.0 [facility] Monocyte percentageOrdered B y: Jenn Perez on 05-02-2025 Monocytes/100 WBC (Bld) 10.0 % 0-10 [facility] Neutrophil percentageOrdered By: Jenn Perez on 05-02-2025 Neutrophils/100 WBC (Bld) 68.8 % 47-70 [facility] No Panel InformationOrdered By: Jenn Perez on 05-02-2025 Addendum Document Comment . [facility] Comment on above: Protein electrophore sis scan will follow via computer,mail, or forging die sinker delivery. Nucleated red blood cell per centageOrdered By: Jenn Perez on 05-02-2025 Nucleated RBC/100 WBC (Bld) [Ratio] 0 % 0-5 [facility] Oncology Visit Reporton 08 Oncology Visit Report Normal [facility] Platelet countOrdered By: Lorene Perez on 05-02-2025 Platelets (Bld) [#/Vol] 154 10*3/uL 150-450 [facility] Potassium measurement (mass/ volume)Ordered By: Jenn Perez on 05-02-2025 Potassium (Unsp spec) [Mass/Vol] 4.2 mmol/L 3.3-5.1 [facility] RBC Auto (Bld) [#/Vol]Ordere d By: Jenn Perez on 05-02-2025 RBC (Bld) [#/Vol] 4.50 10*6/uL Low 4.6-6.2 [facility] Serum creatinine measurement (mass/volume)Ordered By: Jenn Perez on 05-02-2025 Creatinine [Mass/Vol] 1.05 mg/dL 0.70-1.20 [facility] Serum globulin measurementOr dered By: Jenn Perez on 05-02-2025 Globulin (S) [Mass/Vol] 2.0 g/dL Low 2.2-4.2 [facility] Serum globulin measurement ( mass/volume)Ordered By: Jenn Perez on 05-02-2025 Globulin (S) [Mass/Vol] 2.1 g/dL Low 2.2-3.9 [facility] Serum glucose measurement (m ass/volume)Ordered By: Jenn Perez on 05-02-2025 Glucose [Mass/Vol] 148 mg/dL High 70-99 [facility] Serum immunoglobulin kappa l ight chains/immunoglobulin lambda light chains mass ratioOrdered By: Jenn Perez on 05-02-2025 Immunoglobulin light chains.kappa/Immunoglobu dav light chains.lambda (S) [Mass ratio] 5.14 High 0.26-1.65 [facility] Comment on above: Performed at: [place] [id number] Director: Micky Arreola PhD, Phone: [phone] Serum or plasma IgA measurem ent (mass/volume)Ordered By: Jenn Perez on 05-02-2025 IgA [Mass/Vol] 18 mg/dL Low 61-437 [facility] Comment on above: Result confirmed on concentration. Serum or plasma IgG measurem ent (mass/volume)Ordered By: Jenn Perez on 05-02-2025 IgG [Mass/Vol] 389 mg/dL Low 603-1613 [facility] Serum or plasma alanine oropeza otransferase (ALT) measurementOrdered By: Jenn Perez on 05-02-2025 ALT [Catalytic activity/Vol] 22 U/L <47 [facility] Serum or plasma albumin giovanny urement (mass/volume)Ordered By: Jenn Perez on 05-02-2025 Albumin [Mass/Vol] 3.9 g/dL 3.4-4.8 [facility] Serum or plasma albumin/glob ulin mass ratioOrdered By: Jenn Perez on 05-02-2025 Albumin/Globulin [Mass ratio] 2.0 {ratio} 0.9-2.4 [facility] Serum or plasma alkaline stacy sphatase measurementOrdered By: Jenn Perez on 05-02-2025 ALP [Catalytic activity/Vol] 60 U/L 40-129 [facility] Serum or plasma alpha 1 glob ulin measurement by electrophoresis (mass/volume)Ordered By: Jenn Perez on 05-02-2025 Alpha 1 globulin Elph [Mass/Vol] 0.2 g/dL 0.0-0.4 [facility] Alpha 1 globulin Elph [Mass/Vol] 0.8 g/dL 0.4-1.0 [facility] Serum or plasma beta globuli n measurement by electrophoresis (mass/volume)Ordered By: Jenn Perez on 05-02-2025 Beta globulin Elph [Mass/Vol] 0.7 g/dL 0.7-1.3 [facility] Serum or plasma calcium giovanny urement (mass/volume)Ordered By: Jenn Perez on 05-02-2025 Calcium [Mass/Vol] 9.5 mg/dL 7.6-11.0 [facility] Serum or plasma gamma globul in measurement by electrophoresis (mass/volume)Ordered By: Jenn Perez on 05-02-2025 Gamma globulin Elph [Mass/Vol] 0.4 g/dL 0.4-1.8 [facility] Serum or plasma immunoelectr ophoresis interpretation (nominal result)Ordered By: Jenn Perez on 05-02-2025 Interpretation IEP [Interp] Comment High . [facility] Comment on above: Immunofixation shows IgG monoclonal protein with kappalight chain specificity. PLEASE NOTE: Samples from patients receiving DARZALEX(R)(daratumumab) or SARCLISA(R)(isatuximab-[facility]) treatmentcan appear as an "IgG kappa" and mask a complete response(CR). If this patient is receiving these therapies, thisIFE assay interference can be removed by ordering testnumber 349871-"Immunofixation, Daratumumab-Specific,Serum" or [id number]-"Immunofixation, Isatuximab-Specific,Serum" and submitting a new sample for testing or bycalling the lab to add this test to the current sample. Serum or plasma immunoglobul in kappa light chains measurement (mass/volume)Ordered By: Jenn Perez on 05-02-2025 Immunoglobulin light chains.kappa [Mass/Vol] 10.8 mg/L 3.3-19.4 [facility] Serum or plasma protein giovanny urement (mass/volume)Ordered By: Jenn Perez on 05-02-2025 Protein [Mass/Vol] 5.4 g/dL Low 6.0-8.5 [facility] Serum or plasma urea nitroge n measurement (mass/volume)Ordered By: Jenn Perez on 05-02-2025 Urea nitrogen [Mass/Vol] 20 mg/dL High 4-19 [facility] Sodium levelOrdered By: Georgina Perez on 05-02-2025 Sodium [Moles/Vol] 140 mmol/L 133-145 [facility] Total proteinOrdered By: Lam Perez on 05-02-2025 Protein [Mass/Vol] 5.9 g/dL 5.9-8.4 [facility] White blood cell (WBC) count Ordered By: Jenn Perez on 05-02-2025 WBC (Bld) [#/Vol] 3.3 10*3/uL Low 4.4-11.0 [facility] Inital Evaluation (1) - PTon 04-18-2025 Inital Evaluation (1) - PT Normal [facility] ELINA + Protein Elect, Serumon 04-10-2025 Albumin [Mass/Vol] 3.3 g/dL Normal 2.9-4.4 [facility] Comment on above: Order Comment: NUNK Performed By: #### L 3130.0010, L3100.3425 ####[facility] [address] [place], [address] Albumin/Globulin [Mass ratio] 1.4 {ratio} Normal 0.7-1.7 [facility] Comment on above: Order Comment: NUNK Performed By: #### L 3130.0010, L3100.3425 ####[facility] [address] [place], [address] [id number] 0.2 g/dL Normal 0.0-0.4 [facility] Comment on above: Order Comment: NUNK Performed By: #### L 3130.0010, L3100.3425 ####[facility] [address] [place], [address] [id number] 1.0 g/dL Normal 0.4-1.0 [facility] Comment on above: Order Comment: NUNK Performed By: #### L 3130.0010, L3100.3425 ####[facility] [address] [place], [address] BETA GLOBULIN 0.9 g/dL Normal 0.7-1.3 [facility] Comment on above: Order Comment: NUNK Performed By: #### L 3130.0010, L3100.3425 ####[facility] [address] [place], [address] GAMMA GLOBULIN 0.4 g/dL Normal 0.4-1.8 [facility] Comment on above: Order Comment: NUNK Performed By: #### L 3130.0010, L3100.3425 ####[facility] [address] [place], [address] Globulin (S) [Mass/Vol] 2.5 g/dL Normal 2.2-3.9 [facility] Comment on above: Order Comment: NUNK Performed By: #### L 3130.0010, L3100.3425 ####[facility] [address] [place], [address] ELINA RESULT,S Comment Abnormal . [facility] Comment on above: Order Comment: NUNK Result Comment: Immu nofixation shows IgG monoclonal protein with kappalight chain specificity. PLEASE NOTE: Samples from patients receiving DARZALEX(R)(daratumumab) or SARCLISA(R)(isatuximab-irfc) treatmentcan appear as an "IgG kappa" and mask a complete response(CR). If this patient is receiving these therapies, thisIFE assay interference can be removed by ordering testnumber [id number]-"Immunofixation, Daratumumab-Specific,Serum" or [id number]-"Immunofixation, Isatuximab-Specific,Serum" and submitting a new sample for testing or bycalling the lab to add this test to the current sample. Performed By: #### Crystal 3130.0010, L3100.3425 ####[facility] [address] [place], [address] IMMUNOGLOB A QN 17 mg/dL Low 61-437 [facility] Comment on above: Order Comment: NUNK Result Comment: Resu lt confirmed on concentration. Performed By: #### L 3130.0010, L3100.3425 ####[facility] [address] [place], [address] IMMUNOGLOB G QN 412 mg/dL Low 603-1613 [facility] Comment on above: Order Comment: NUNK Performed By: #### L 3130.0010, L3100.3425 ####[facility] [address] [place], [address] IMMUNOGLOB M QN 10 mg/dL Low 20-172 [facility] Comment on above: Order Comment: NUNK Result Comment: Resu lt confirmed on concentration. Performed By: #### L 3130.0010, L3100.3425 ####[facility] [address] [place], [address] M-Raúl 0.1 g/dL Abnormal Not Observed [facility] Comment on above: Order Comment: NUNK Performed By: #### L 3130.0010, L3100.3425 ####[facility] [address] [place], [address] NOTE: Comment Normal . [facility] Comment on above: Order Comment: NUNK Result Comment: Prot ein electrophoresis scan will follow via computer,mail, or forging die sinker delivery. Performed By: #### L 3130.0010, L3100.3425 ####[facility] [address] [place], [address] Protein [Mass/Vol] 5.8 g/dL Low 6.0-8.5 [facility] Comment on above: Order Comment: NUNK Performed By: #### L 3130.0010, L3100.3425 ####[facility] [address] [place], [address] [place] Lambda Light Chainson 04-10-2025 FR KAPPA LT CHN 9.2 mg/L Normal 3.3-19.4 [facility] Comment on above: Performed By: #### L 3130.0010, L3100.3425 ####[facility] [address] [place], [address] FR LAMBDA LT CH 2.3 mg/L Abnormal 5.7-26.3 [facility] Comment on above: Performed By: #### L 3130.0010, L3100.3425 ####[facility] [address] [place], [address] KAPPA/LAMBDA % 4.00 Abnormal 0.26-1.65 [facility] Comment on above: Result Comment: Perf ormed at: [facility] - [facility] [address] [place], [place] [id number] Director: Micky Arreola PhD, Phone: [phone] Performed By: #### L 3130.0010, Z0753.3315 ####[facility] [address] [place], [address] Absolute lymphocyte countOrd ered By: Jenn Perez on 04-05-2025 Lymphocytes Auto (Unsp spec) [#/Vol] 0.38 10*3/uL Low 0.83-4.51 [facility] Absolute neutrophil countOrd ered By: [facility] on 04-05-2025 Neutrophils (Bld) [#/Vol] 3.6 10*3/uL 2.0-7.7 [facility] Albumin Elph [Mass/Vol]Order ed By: Jenn Perez on 04-05-2025 Albumin [Mass/Vol] 3.3 g/dL 2.9-4.4 [facility] Anion gap in Serum or Plasma Ordered By: Jenn Perez on 04-05-2025 Anion gap [Moles/Vol] 11 mmol/L 5-15 [facility] Automated lymphocyte count a s percentage of total leukocytesOrdered By: Jenn Perez on 04-05-2025 Lymphocytes/100 WBC Auto (Unsp spec) 8.2 % Low 19-41 [facility] BUN/creatinine ratioOrdered By: [facility] on 04-05-2025 Urea nitrogen/Creatinine [Mass ratio] 20.0 mg/mg 10-20 [facility] Basophil percentageOrdered B y: Jenn Perez on 04-05-2025 Basophils/100 WBC (Bld) 0.9 % 0-1 [facility] Bilirubin, totalOrdered By: Jenn Perez on 04-05-2025 Bilirubin [Mass/Vol] 0.31 mg/dL 0.00-1.30 [facility] CBC W/Diff, Automatedon 03-27 Absolute Lymph 0.38 X10 3/uL Low 0.83-4.51 [facility] Comment on above: Performed By: #### L 100.0100, L500.4050 ####[facility] [address] [place], [address] Absolute Neut 3.6 X10 3/uL Normal 2.0-7.7 [facility] Comment on above: Performed By: #### L 100.0100, L500.4050 ####[facility] [address] [place], [address] Basophils/100 WBC (Bld) 0.9 % Normal 0-1 [facility] Comment on above: Performed By: #### L 100.0100, L500.4050 ####[facility] [address] [place], [address] Eosinophils/100 WBC (Bld) 3.0 % Normal 0-5 [facility] Comment on above: Performed By: #### L 100.0100, L500.4050 ####[facility] [address] [place], [address] Erythrocyte distribution width (RBC) [Ratio] 13.8 % Normal 11.6-14.6 [facility] Comment on above: Performed By: #### L 100.0100, L500.4050 ####[facility] [address] [place], [address] Hematocrit (Bld) [Volume fraction] 40.2 % Normal 40-54 [facility] Comment on above: Performed By: #### L 100.0100, L500.4050 ####[facility] [address] [place], [address] Hemoglobin (Bld) [Mass/Vol] 12.9 g/dL Low 13.0-16.5 [facility] Comment on above: Performed By: #### L 100.0100, L500.4050 ####[facility] [address] [place], [address] IG% 0.400 Normal 0.0-0.9 [facility] Comment on above: Result Comment: IG% - Immature Granulocytes (promyelocytes, myelocytes andmetamyelocytes) > 1% indicates that a LEFT SHIFT is Present. Performed By: #### L 100.0100, L500.4050 ####[facility] [address] [place], [address] Lymphocytes/100 WBC (Bld) 8.2 % Low 19-41 [facility] Comment on above: Performed By: #### L 100.0100, L500.4050 ####[facility] [address] [place], [address] MCH (RBC) [Entitic mass] 28.7 pg Normal 27.0-32.0 [facility] Comment on above: Performed By: #### L 100.0100, L500.4050 ####[facility] [address] [place], [address] MCHC (RBC) [Mass/Vol] 32.1 g/dL Normal 32-36 [facility] Comment on above: Performed By: #### L 100.0100, L500.4050 ####[facility] [address] [place], [address] MCV (RBC) [Entitic vol] 89.3 fL Normal 80-94 [facility] Comment on above: Performed By: #### L 100.0100, L500.4050 ####[facility] [address] [place], [address] Monocytes/100 WBC (Bld) 10.3 % High 0-10 [facility] Comment on above: Performed By: #### L 100.0100, L500.4050 ####[facility] [address] [place], [address] Neutrophils/100 WBC (Bld) 77.2 % High 47-70 [facility] Comment on above: Performed By: #### L 100.0100, L500.4050 ####[facility] [address] [place], [address] Nucleated RBC (Bld) [#/Vol] 0 10*3/uL Normal 0-5 [facility] Comment on above: Performed By: #### L 100.0100, L500.4050 ####[facility] [address] [place], [address] Platelet mean volume (Bld) [Entitic vol] 10.8 fL Normal 6.2-12.0 [facility] Comment on above: Performed By: #### L 100.0100, L500.4050 ####[facility] [address] [place], [address] Platelets (Bld) [#/Vol] 156 10*3/uL Normal 150-450 [facility] Comment on above: Performed By: #### L 100.0100, L500.4050 ####[facility] [address] [place], [address] RBC (Bld) [#/Vol] 4.50 10*6/uL Low 4.6-6.2 [facility] Comment on above: Performed By: #### L 100.0100, L500.4050 ####[facility] [address] [place], [address] RDW SD 45.2 fl High 35.1-43.9 [facility] Comment on above: Performed By: #### L 100.0100, L500.4050 ####[facility] [address] [place], [address] WBC (Bld) [#/Vol] 4.7 10*3/uL Normal 4.4-11.0 [facility] Comment on above: Performed By: #### L 100.0100, L500.4050 ####[facility] [address] [place], [address] Carbon dioxide, total [Moles /volume] in Central venous bloodOrdered By: Jenn Perez on 04-05-2025 CO2 [Moles/Vol] 24.7 mmol/L 21.0-32.0 [facility] Chloride assayOrdered By: Lorene Perez on 04-05-2025 Chloride [Moles/Vol] 103 mmol/L 98-108 [facility] Comprehensive Metabolic Prof ilon 04-05-2025 Albumin [Mass/Vol] 4.0 g/dL Normal 3.4-4.8 [facility] Comment on above: Performed By: #### L 100.0100, L500.4050 ####[facility] [address] [place], [address] Albumin/Globulin [Mass ratio] 1.9 {ratio} Normal 0.9-2.4 [facility] Comment on above: Performed By: #### L 100.0100, L500.4050 ####[facility] [address] [place], [address] ALK PHOS 67 U/L Normal 40-129 [facility] Comment on above: Performed By: #### L 100.0100, L500.4050 ####[facility] [address] [place], [address] ALT [Catalytic activity/Vol] 17 U/L Normal <=46 [facility] Comment on above: Performed By: #### L 100.0100, L500.4050 ####[facility] [address] [place], [address] AST [Catalytic activity/Vol] 19 U/L Normal <=37 [facility] Comment on above: Performed By: #### L 100.0100, L500.4050 ####[facility] [address] [place], [address] Bilirubin [Mass/Vol] 0.31 mg/dL Normal 0.00-1.30 [facility] Comment on above: Performed By: #### L 100.0100, L500.4050 ####[facility] [address] [place], [address] BUN/CRE 20.0 RATIO Normal 10-20 [facility] Comment on above: Performed By: #### L 100.0100, L500.4050 ####[facility] [address] [place], [address] Calcium [Mass/Vol] 9.1 mg/dL Normal 7.6-11.0 [facility] Comment on above: Performed By: #### L 100.0100, L500.4050 ####[facility] [address] [place], [address] Chloride [Moles/Vol] 103 mmol/L Normal 98-108 [facility] Comment on above: Performed By: #### L 100.0100, L500.4050 ####[facility] [address] [place], [address] CO2 [Moles/Vol] 24.7 mmol/L Normal 21.0-32.0 [facility] Comment on above: Performed By: #### L 100.0100, L500.4050 ####[facility] [address] [place], [address] Creatinine [Mass/Vol] 1.03 mg/dL Normal 0.70-1.20 [facility] Comment on above: Performed By: #### L 100.0100, L500.4050 ####[facility] [address] [place], [address] ECRCL 69.45 ml/min Normal 50-250 [facility] Comment on above: Performed By: #### L 100.0100, L500.4050 ####[facility] [address] [place], [address] GAP 11 Normal 5-15 [facility] Comment on above: Performed By: #### L 100.0100, L500.4050 ####[facility] [address] [place], [address] GFR/1.73 sq M.predicted among non-blacks MDRD (S/P/Bld) [Vol rate/Area] 80 mL/min/{1.73_m2} Normal >60 [facility] Comment on above: Result Comment: mL/m in/1.73m2 CKD-EPI Creatinine Equation (2020) Performed By: #### L 100.0100, L500.4050 ####[facility] [address] [place], [address] Globulin (S) [Mass/Vol] 2.1 g/dL Low 2.2-4.2 [facility] Comment on above: Performed By: #### L 100.0100, L500.4050 ####[facility] [address] [place], [address] Glucose [Mass/Vol] 104 mg/dL High 70-99 [facility] Comment on above: Performed By: #### L 100.0100, L500.4050 ####[facility] [address] [place], [address] Potassium [Moles/Vol] 4.4 mmol/L Normal 3.3-5.1 [facility] Comment on above: Performed By: #### L 100.0100, L500.4050 ####[facility] [address] [place], [address] Sodium [Moles/Vol] 139 mmol/L Normal 133-145 [facility] Comment on above: Performed By: #### L 100.0100, L500.4050 ####[facility] [address] [place], [address] T PROT 6.1 g/dL Normal 5.9-8.4 [facility] Comment on above: Performed By: #### L 100.0100, L500.4050 ####[facility] [address] [place], [place], [address] Urea nitrogen [Mass/Vol] 21 mg/dL High 4-19 [facility] Comment on above: Performed By: #### L 100.0100, L500.4050 ####[facility] [address] [place], [place], [id number] Eosinophil percentageOrdered By: Jenn Perez on 04-05-2025 Eosinophils/100 WBC (Bld) 3.0 % 0-5 [facility] Erythrocyte distribution wid th ratioOrdered By: [facility] on 04-05-2025 Erythrocyte distribution width (RBC) [Ratio] 13.8 % 11.6-14.6 [facility] Erythrocyte distribution wid th standard deviationOrdered By: [facility] on 04-05-2025 Erythrocyte distribution width (RBC) [Ratio] 45.2 fl High 35.1-43.9 [facility] Glomerular filtration rate ( GFR) estimation/1.73 sq m using serum, plasma, or whole bOrdered By: Jnen Perez on 04-05-2025 GFR/1.73 sq M.predicted among non-blacks MDRD (S/P/Bld) [Vol rate/Area] 80 mL/min/{1.73_m2} >60 [facility] Comment on above: mL/min/1.73m2 CKD-EP I Creatinine Equation (2020) Hematocrit Auto (Bld) [Volum e fraction]Ordered By: Jenn Perez on 04-05-2025 Hematocrit (Bld) [Volume fraction] 40.2 % 40-54 [facility] Hemoglobin measurementOrdere d By: Jenn Perez on 04-05-2025 Hemoglobin (Bld) [Mass/Vol] 12.9 g/dL Low 13.0-16.5 [facility] Immature granulocytes/100 WB C Auto (Bld)Ordered By: Jenn Perez on 04-05-2025 Immature granulocytes/100 WBC (Bld) 0.400 % 0.0-0.9 [facility] Comment on above: IG% - Immature Granu locytes (promyelocytes, myelocytes and metamyelocytes) > 1% indicates that a LEFT SHIFT is Present. Interpretation of serum or p lasma protein pattern by immunofixation (narrative resultOrdered By: Jenn Perez on 04-05-2025 Protein Fractions Immunofixation Johnny [Interp] 0.1 g/dL High Not Observed [facility] Laboratory - Chemistry and C hemistry - challengeOrdered By: Jenn Perez on 04-05-2025 AST [Catalytic activity/Vol] 19 U/L <38 [facility] MCV (mean corpuscular volume ) determinationOrdered By: Jenn Perez on 04-05-2025 MCV (RBC) [Entitic vol] 89.3 fL 80-94 [facility] Mean corpuscular hemoglobin (MCH) determinationOrdered By: Jenn Perez on 04-05-2025 MCH (RBC) [Entitic mass] 28.7 pg 27.0-32.0 [facility] Mean corpuscular hemoglobin concentration (MCHC) determinationOrdered By: Jenn Perez on 04-05-2025 MCHC (RBC) [Mass/Vol] 32.1 g/dL 32-36 [facility] Mean platelet volume determi nationOrdered By: Jenn Perez on 04-05-2025 Platelet mean volume (Bld) [Entitic vol] 10.8 fL 6.2-12.0 [facility] Monocyte percentageOrdered B y: Jenn Perez on 04-05-2025 Monocytes/100 WBC (Bld) 10.3 % High 0-10 [facility] Neutrophil percentageOrdered By: Jenn Perez on 04-05-2025 Neutrophils/100 WBC (Bld) 77.2 % High 47-70 [facility] No Panel InformationOrdered By: Jenn Perez on 04-05-2025 Addendum Document Comment . [facility] Comment on above: Protein electrophore sis scan will follow via computer,mail, or forging die sinker delivery. Nucleated red blood cell per centageOrdered By: Jenn Perez on 04-05-2025 Nucleated RBC/100 WBC (Bld) [Ratio] 0 % 0-5 [facility] Oncology Visit Reporton 03-27 Oncology Visit Report Normal [facility] Platelet countOrdered By: Lorene Perez on 04-05-2025 Platelets (Bld) [#/Vol] 156 10*3/uL 150-450 [facility] Potassium measurement (mass/ volume)Ordered By: Jenn Perez on 04-05-2025 Potassium (Unsp spec) [Mass/Vol] 4.4 mmol/L 3.3-5.1 [facility] RBC Auto (Bld) [#/Vol]Ordere d By: Jenn Perez on 04-05-2025 RBC (Bld) [#/Vol] 4.50 10*6/uL Low 4.6-6.2 [facility] Serum creatinine measurement (mass/volume)Ordered By: Jenn Perez on 04-05-2025 Creatinine [Mass/Vol] 1.03 mg/dL 0.70-1.20 [facility] Serum globulin measurementOr dered By: Jenn Perez on 04-05-2025 Globulin (S) [Mass/Vol] 2.1 g/dL Low 2.2-4.2 [facility] Serum glucose measurement (m ass/volume)Ordered By: Jenn Perez on 04-05-2025 Glucose [Mass/Vol] 104 mg/dL High 70-99 [facility] Serum immunoglobulin kappa l ight chains/immunoglobulin lambda light chains mass ratioOrdered By: Jenn Perez on 04-05-2025 Immunoglobulin light chains.kappa/Immunoglobu dav light chains.lambda (S) [Mass ratio] 4.00 High 0.26-1.65 [facility] Comment on above: Performed at: [place] [id number] Director: Micky Arreola PhD, Phone: [phone] Serum or plasma IgA measurem ent (mass/volume)Ordered By: Jenn Perez on 04-05-2025 IgA [Mass/Vol] 17 mg/dL Low 61-437 [facility] Comment on above: Result confirmed on concentration. Serum or plasma IgG measurem ent (mass/volume)Ordered By: Jenn Perez on 04-05-2025 IgG [Mass/Vol] 412 mg/dL Low 603-1613 [facility] Serum or plasma alanine oropeza otransferase (ALT) measurementOrdered By: Jenn Perez on 04-05-2025 ALT [Catalytic activity/Vol] 17 U/L <47 [facility] Serum or plasma albumin giovanny urement (mass/volume)Ordered By: Jenn Perez on 04-05-2025 Albumin [Mass/Vol] 4.0 g/dL 3.4-4.8 [facility] Serum or plasma albumin/glob ulin mass ratioOrdered By: Jenn Perez on 04-05-2025 Albumin/Globulin [Mass ratio] 1.9 {ratio} 0.9-2.4 [facility] Serum or plasma alkaline stacy sphatase measurementOrdered By: Jenn Perez on 04-05-2025 ALP [Catalytic activity/Vol] 67 U/L 40-129 [facility] Serum or plasma alpha 1 glob ulin measurement by electrophoresis (mass/volume)Ordered By: Jenn Perez on 04-05-2025 Alpha 1 globulin Elph [Mass/Vol] 0.2 g/dL 0.0-0.4 [facility] Alpha 1 globulin Elph [Mass/Vol] 1.0 g/dL 0.4-1.0 [facility] Serum or plasma beta globuli n measurement by electrophoresis (mass/volume)Ordered By: Jenn Perez on 04-05-2025 Beta globulin Elph [Mass/Vol] 0.9 g/dL 0.7-1.3 [facility] Serum or plasma calcium giovanny urement (mass/volume)Ordered By: Jenn Perez on 04-05-2025 Calcium [Mass/Vol] 9.1 mg/dL 7.6-11.0 [facility] Serum or plasma gamma globul in measurement by electrophoresis (mass/volume)Ordered By: Jenn Perez on 04-05-2025 Gamma globulin Elph [Mass/Vol] 0.4 g/dL 0.4-1.8 [facility] Serum or plasma immunoelectr ophoresis interpretation (nominal result)Ordered By: Jenn Perez on 04-05-2025 Interpretation IEP [Interp] Comment High . [facility] Comment on above: Immunofixation shows IgG monoclonal protein with kappalight chain specificity. PLEASE NOTE: Samples from patients receiving DARZALEX(R)(daratumumab) or SARCLISA(R)(isatuximab-irfc) treatmentcan appear as an "IgG kappa" and mask a complete response(CR). If this patient is receiving these therapies, thisIFE assay interference can be removed by ordering testnumber [id number]-"Immunofixation, Daratumumab-Specific,Serum" or [id number]-"Immunofixation, Isatuximab-Specific,Serum" and submitting a new sample for testing or bycalling the lab to add this test to the current sample. Serum or plasma immunoglobul in kappa light chains measurement (mass/volume)Ordered By: Jenn Perez on 04-05-2025 Immunoglobulin light chains.kappa [Mass/Vol] 9.2 mg/L 3.3-19.4 [facility] Serum or plasma protein giovanny urement (mass/volume)Ordered By: Jenn Perez on 04-05-2025 Protein [Mass/Vol] 5.8 g/dL Low 6.0-8.5 [facility] Serum or plasma urea nitroge n measurement (mass/volume)Ordered By: Jenn Perez on 04-05-2025 Urea nitrogen [Mass/Vol] 21 mg/dL High 4-19 [facility] Sodium levelOrdered By: Georgina Perez on 04-05-2025 Sodium [Moles/Vol] 139 mmol/L 133-145 [facility] Total proteinOrdered By: Lam Perez on 04-05-2025 Protein [Mass/Vol] 6.1 g/dL 5.9-8.4 [facility] White blood cell (WBC) count Ordered By: Jenn Perez on 04-05-2025 WBC (Bld) [#/Vol] 4.7 10*3/uL 4.4-11.0 [facility] CBC AND ELECTRONIC DIFFon Basophils (Bld) [#/Vol] K/uL 0.00 - 0.09 K/uL [facility] Basophils/100 WBC (Bld) 0.7 % [facility] Differential cell count method Nom (Bld) Electronic Differential [facility] Eosinophils (Bld) [#/Vol] 0.13 10*3/uL 0.00 - 0.48 K/uL [facility] Eosinophils/100 WBC (Bld) 2.9 % [facility] Erythrocyte distribution width (RBC) [Ratio] 14.2 % 10.9 - 14.3 % [facility] Hematocrit (Bld) [Volume fraction] 40.6 % 39.6 - 48.8 % [facility] Hemoglobin (Bld) [Mass/Vol] 13.3 g/dL Low 13.4 - 16.8 g/dL [facility] Immature granulocytes (Bld) [#/Vol] K/uL NINF - 0.07 K/uL [facility] Immature granulocytes/100 WBC (Bld) 0.4 % [facility] Interpretation and review of laboratory results Abnormal [facility] Lymphocytes (Bld) [#/Vol] 0.6 10*3/uL Low 0.83 - 3.57 K/uL [facility] Lymphocytes/100 WBC (Bld) 13.2 % [facility] MCH (RBC) [Entitic mass] 29 pg 26. 1 - 33.3 pg [facility] MCHC (RBC) [Mass/Vol] 32.8 g/dL 31.9 - 36.5 g/dL [facility] MCV (RBC) [Entitic vol] 88.6 fL 79.0 - 94.5 fL [facility] Monocytes (Bld) [#/Vol] 0.46 10*3/uL 0.24 - 0.93 K/uL [facility] Monocytes/100 WBC (Bld) 10.2 % [facility] Neutrophils (Bld) [#/Vol] 3.29 10*3/uL 1.57 - 6.19 K/uL [facility] Nucleated RBC/100 WBC (Bld) [Ratio] 0 % NINF [facility] Platelet mean volume (Bld) [Entitic vol] 11.2 fL 8.7 - 12.3 fL [facility] Platelets (Bld) [#/Vol] 143 10*3/uL Low 146 - 337 K/uL [facility] RBC (Bld) [#/Vol] 4.58 10*6/uL [facility] Segmented neutrophils/100 WBC (Bld) 72.6 % [facility] WBC (Bld) [#/Vol] 4.53 10*3/uL 3.73 - 10.10 K/uL [facility] Abs Baso Auto < Normal 0.00-0.09 [facility] Comment on above: Performed By: #### L [id number] #### [facility] (DEFAULT) [address] [address] Basophils/100 WBC (Bld) 0.7 % Normal O [facility] Comment on above: Performed By: #### L [id number] #### [facility] (DEFAULT) [address] [place] [address] DIFF STATUS Electronic Differential Normal [facility] Comment on above: Performed By: #### L [id number] #### [facility] (DEFAULT) [address] [place] [address] Eosinophils (Bld) [#/Vol] 0.13 10*3/uL Normal 0.00-0.48 [facility] Comment on above: Performed By: #### L [id number] #### [facility] (DEFAULT) [address] [place] [address] Eosinophils/100 WBC (Bld) 2.9 % Normal [facility] Comment on above: Performed By: #### L [id number] #### [facility] (DEFAULT) [address] [place] [address] Hematocrit (Bld) [Volume fraction] 40.6 % Normal 39.6-48.8 [facility] Comment on above: Performed By: #### L [id number] #### [facility] (DEFAULT) [address] [place] [address] Hemoglobin (Bld) [Mass/Vol] 13.3 g/dL Low 13.4-16.8 [facility] Comment on above: Performed By: #### L [id number] #### [facility] (DEFAULT) [address] [address] Immature Grans % 0.4 % Normal [facility] Comment on above: Performed By: #### L [id number] #### [facility] (DEFAULT) [address] [place] [address] Immature Grans Absolute < Normal <=0.07 O [facility] Comment on above: Performed By: #### L [id number] #### [facility] (DEFAULT) [address] [place] [address] Lymphocytes (Bld) [#/Vol] 0.60 10*3/uL Low 0.83-3.57 [facility] Comment on above: Performed By: #### L [id number] #### [facility] (DEFAULT) [address] [address] Lymphocytes/100 WBC (Bld) 13.2 % Normal [facility] Comment on above: Performed By: #### L [id number] #### [facility] (DEFAULT) [address] [address] MCV (RBC) [Entitic vol] 88.6 fL Normal 79.0-94.5 O [facility] Comment on above: Performed By: #### L [id number] #### [facility] (DEFAULT) [address] [address] Mean Cell Hgb 29.0 pg Normal 26.1-33.3 [facility] Comment on above: Performed By: #### L [id number] #### [facility] (DEFAULT) [address] [address] Mean Cell Hgb Conc 32.8 g/dL Normal 31.9-36.5 [facility] Comment on above: Performed By: #### L [id number] #### [facility] (DEFAULT) [address] [address] Monocytes (Bld) [#/Vol] 0.46 10*3/uL Normal 0.24-0.93 [facility] Comment on above: Performed By: #### L [id number] #### [facility] (DEFAULT) [address] [address] Monocytes/100 WBC (Bld) 10.2 % Normal O [facility] Comment on above: Performed By: #### L [id number] #### [facility] (DEFAULT) [address] [address] Nucleated RBC 0.0 /100 WBC Normal <=0.2 [facility] Comment on above: Performed By: #### L [id number] #### [facility] (DEFAULT) [address] [address] Platelet mean volume (Bld) [Entitic vol] 11.2 fL Normal 8.7-12.3 [facility] Comment on above: Performed By: #### L [id number] #### [facility] (DEFAULT) [address] [address] Platelets (Bld) [#/Vol] 143 10*3/uL Low 146-337 [facility] Comment on above: Performed By: #### L [id number] #### [facility] (DEFAULT) [address] [address] RBC (Bld) [#/Vol] 4.58 10*6/uL Normal 4.38-5.83 [facility] Comment on above: Performed By: #### L [id number] #### [facility] (DEFAULT) [address] [address] RBC Distribution 14.2 % Normal 10.9-14.3 [facility] Comment on above: Performed By: #### L [id number] #### [facility] (DEFAULT) [address] [place] [address] Segs + Bands Auto 72.6 % Normal [facility] Comment on above: Performed By: #### L [id number] #### [facility] (DEFAULT) [address] [place] [address] Segs + Bands,Absolute Auto 3.29 K/uL Normal 1.57-6.19 [facility] Comment on above: Performed By: #### L [id number] #### [facility] (DEFAULT) [address] [place] [address] WBC (Bld) [#/Vol] 4.53 10*3/uL Normal 3.73-10.10 [facility] Comment on above: Performed By: #### L [id number] #### [facility] (DEFAULT) [address] [place] [address] COMPREHENSIVE METABOLIC PANE Jim 03-16-2025 Albumin [Mass/Vol] 4.2 g/dL 3.5 - 5.0 g/dL [facility] ALP [Catalytic activity/Vol] 49 U/L 32 - 126 U/L [facility] ALT [Catalytic activity/Vol] 15 U/L 10 - 52 U/L [facility] Anion gap [Moles/Vol] 10 mmol/L 7 - 17 mmol/L [facility] AST [Catalytic activity/Vol] 13 U/L 10 - 39 U/L [facility] Bilirubin [Mass/Vol] 0.5 mg/dL NINF - 1.5 mg/dL [facility] Calcium [Mass/Vol] 9.3 mg/dL 8.6 - 10. 5 mg/dL [facility] Chloride [Moles/Vol] 103 mmol/L 98 - 10 8 mmol/L [facility] CO2 [Moles/Vol] 30 mmol/L 21 - 31 mmol/L [facility] Creatinine [Mass/Vol] 0.95 mg/dL 0.70 - 1.30 mg/dL [facility] eGFR, CKD-EPI, Male 89 - PINF [facility] Comment on above: Reported eGFR is bas ed on the CKD-EPI 2020 equation using creatinine, age, and sex. Glucose [Mass/Vol] 103 mg/dL 70 - 179 mg/dL [facility] Interpretation and review of laboratory results Abnormal [facility] Osmolality Calc [Osmolality] 293 [facility] Potassium [Moles/Vol] 4.2 mmol/L 3.5 - 5.0 mmol/L [facility] Protein [Mass/Vol] 6.1 g/dL Low 6.4 - 8.3 g/dL [facility] Sodium [Moles/Vol] 139 mmol/L 135 - 145 mmol/L [facility] Urea nitrogen [Mass/Vol] 17 mg/dL 7 - 25 mg/dL [facility] Urea nitrogen/Creatinine [Mass ratio] 18 mg/mg [facility] Albumin [Mass/Vol] 4.2 g/dL Normal 3.5-5.0 [facility] Comment on above: Performed By: #### C MPN #### [facility] (DEFAULT) [address] [place] [address] ALP [Catalytic activity/Vol] 49 U/L Normal 32-126 [facility] Comment on above: Performed By: #### C MPN #### [facility] (DEFAULT) [address] [place] [address] ALT [Catalytic activity/Vol] 15 U/L Normal 10-52 [facility] Comment on above: Performed By: #### C MPN #### [facility] [facility] (DEFAULT[facility] [address] [place] [address] Anion gap [Moles/Vol] 10 mmol/L Normal 7-17 [place] Comment on above: Performed By: #### C MPN #### [facility] (DEFAULT) [address] [place] [address] AST [Catalytic activity/Vol] 13 U/L Normal 10-39 [facility] Comment on above: Performed By: #### C MPN #### [facility] (DEFAULT) [address] [place] [address] Bilirubin [Mass/Vol] 0.5 mg/dL Normal <1.5 [facility] Comment on above: Performed By: #### C MPN #### [facility] (DEFAULT) [address] [place] [address] Calcium [Mass/Vol] 9.3 mg/dL Normal 8.6-10.5 [facility] Comment on above: Performed By: #### C MPN #### [facility] (DEFAULT) [address] [place] [address] Chloride [Moles/Vol] 103 mmol/L Normal 98-108 [facility] Comment on above: Performed By: #### C MPN #### [facility] (DEFAULT) [address] [place] [address] CO2 [Moles/Vol] 30 mmol/L Normal 21-31 [facility] Comment on above: Performed By: #### C MPN #### [facility] (DEFAULT) [address] [place] [address] Creatinine [Mass/Vol] 0.95 mg/dL Normal 0.70-1.30 [place] Comment on above: Performed By: #### C MPN #### [facility] (DEFAULT) [address] [place] [address] GFR/1.73 sq M.predicted among non-blacks MDRD (S/P/Bld) [Vol rate/Area] 88 mL/min/{1.73_m2} Normal >=60 [facility] Comment on above: Result Comment: Repo rted eGFR is based on the CKD-EPI 2020 equation using creatinine, age, and sex. Performed By: #### C MPN #### [facility] (DEFAULT) [address] [place] [address] Glucose [Mass/Vol] 103 mg/dL Normal Nonfastin -179 mg/dL; Fastin-99 [facility] Comment on above: Performed By: #### C MPN #### [facility] (DEFAULT) [address] [place] [address] Osmolality [Osmolality] 293 mosm/kg Normal 278-305 [facility] Comment on above: Performed By: #### C MPN #### [facility] (DEFAULT) [address] [place] [address] Potassium [Moles/Vol] 4.2 mmol/L Normal 3.5-5.0 [place] Comment on above: Performed By: #### C MPN #### [facility] (DEFAULT) [address] [place] [address] Protein [Mass/Vol] 6.1 g/dL Low 6.4-8.3 [facility] Comment on above: Performed By: #### C MPN #### [facility] (DEFAULT) [address] [place] [address] Sodium [Moles/Vol] 139 mmol/L Normal 135-145 [facility] Comment on above: Performed By: #### C MPN #### [facility] (DEFAULT) [address] [place] [address] Urea nitrogen [Mass/Vol] 17 mg/dL Normal 7-25 [facility] Comment on above: Performed By: #### C MPN #### [facility] (DEFAULT) [address] [place] [address] Urea nitrogen/Creatinine [Mass ratio] 18 mg/mg Normal [facility] Comment on above: Performed By: #### C MPN #### [facility] (DEFAULT) [address] [place] [address] IMMUNOFIXATION SERUMon 03-16 Monoclonal 1 31.5 mg/dL High <=0.0 [facility] Comment on above: Performed By: #### I FLC #### [facility] (DEFAULT) [address] [place] [address] REVIEWED BY: Tomás Elena MD Normal [facility] Comment on above: Performed By: #### I FLC #### [facility] (DEFAULT) [address] [address] Serum Immunofixation Minute amount of Ig G kappa monoclonal protein is present. Normal [facility] Comment on above: Performed By: #### I FLC #### [facility] (DEFAULT) [address] [address] IMMUNOGLOBULIN FREE CHAINSon 03-16-2025 [place] Free Light Chains 8.4 mg/L Normal 3.9-26.0 [facility] Comment on above: Order Comment: Undet ected [...] laboratory. Performed By: #### I FLC #### [facility] (DEFAULT) [address] [address] [place]/Lambda Ratio 3.23 High 0.51-1.72 [facility] Comment on above: Order Comment: Undet [...] laboratory. Performed By: #### I FLC #### [facility] (DEFAULT) [address] [address] Lambda Free Light Chains 2.6 mg/L Low 6.4-22.1 [facility] Comment on above: Order Comment: Undet [...] laboratory. Performed By: #### I FLC #### [facility] (DEFAULT) [address] [place] [address] IMMUNOGLOBULINS IGG IGA IGMO rdered By: Staci Hart on 03-16-2025 IgA [Mass/Vol] 19 mg/dL Low 90 - 410 mg/dL [facility] IgG [Mass/Vol] 403 mg/dL Low 600 - 1560 mg/dL [facility] IgM [Mass/Vol] mg/dL Low 30 - 360 mg/dL [facility] Interpretation and review of laboratory results Abnormal [facility] IMMUNOGLOBULINS IGG IGA IGMo n 03-16-2025 IgA [Mass/Vol] 19 mg/dL Low 90-410 [facility] Comment on above: Performed By: #### Q IMM #### [facility] (DEFAULT) [address] [place] [address] IgG [Mass/Vol] 403 mg/dL Low 600-1560 [facility] Comment on above: Performed By: #### Q IMM #### [facility] (DEFAULT) [address] [place] [address] IGM < Low 30-360 [facility] Comment on above: Performed By: #### Q IMM #### [facility] (DEFAULT) [address] [place] [address] PROTEIN ELECTROPHORESISon Albumin [Mass/Vol] 3.9 g/dL Normal 3.5-5.0 [facility] Comment on above: Performed By: #### I FLC #### [facility] (DEFAULT) [address] [place] [address] Alpha 1 0.3 g/dL Normal 0.2-0.4 [facility] Comment on above: Performed By: #### I FLC #### [facility] (DEFAULT) [address] [address] Alpha 2 0.8 g/dL Normal 0.5-1.0 [facility] Comment on above: Performed By: #### I FLC #### [facility] (DEFAULT) [address] [address] Beta 1.0 g/dL Normal 0.5-1.1 [facility] Comment on above: Performed By: #### I FLC #### [facility] (DEFAULT) [address] [address] Gamma 0.3 g/dL Low 0.6-1.5 [facility] Comment on above: Performed By: #### I FLC #### [facility] (DEFAULT) [address] [address] Interpretation By: Tomás Elena MD Normal [facility] Comment on above: Performed By: #### I FLC #### [facility] (DEFAULT) [address] [address] Spe Interpretation There is a zone of restriction in the gamma region with decreased remaining polyclonal immunoglobulins. This pattern suggests monoclonal or oligoclonal proteins that may occur in chronic inflammatory diseases (e.g., of liver), or may be idiopathic, or may represent a monoclonal gammopathy. Normal [facility] Comment on above: Performed By: #### I FLC #### [facility] (DEFAULT) [address] [address] SPE SERUM TOTAL PROTEINon Interpretation and review of laboratory results Abnormal [facility] Protein [Mass/Vol] 6.3 g/dL Low 6.4 - 8.3 g/dL [facility] Protein [Mass/Vol] 6.3 g/dL Low 6.4-8.3 [facility] Comment on above: Performed By: #### I FLC #### [facility] (DEFAULT) [address] [address] ELINA + Protein Elect, Serumon 03-13-2025 Albumin [Mass/Vol] 3.4 g/dL Normal 2.9-4.4 [facility] Comment on above: Order Comment: NUNK Performed By: #### L 3100.3425, L3130.0010 ####[facility] [address] [place], [address] Albumin/Globulin [Mass ratio] 1.5 {ratio} Normal 0.7-1.7 [facility] Comment on above: Order Comment: NUNK Performed By: #### L 3100.3425, L3130.0010 ####[facility] [address] [place], [address] MOLLM-3-NMBX 0.2 g/dL Normal 0.0-0.4 [facility] Comment on above: Order Comment: NUNK Performed By: #### L 3100.3425, L3130.0010 ####[facility] [address] [place], [address] UDNYT-0-EINP 0.9 g/dL Normal 0.4-1.0 [facility] Comment on above: Order Comment: NUNK Performed By: #### L 3100.3425, L3130.0010 ####[facility] [address] [place], [address] BETA GLOBULIN 0.9 g/dL Normal 0.7-1.3 [facility] Comment on above: Order Comment: NUNK Performed By: #### L 3100.3425, L3130.0010 ####[facility] [address] [place], [address] GAMMA GLOBULIN 0.3 g/dL Low 0.4-1.8 [facility] Comment on above: Order Comment: NUNK Performed By: #### L 3100.3425, L3130.0010 ####[facility] [address] [place], [address] Globulin (S) [Mass/Vol] 2.3 g/dL Normal 2.2-3.9 [facility] Comment on above: Order Comment: NUNK Performed By: #### L 3100.3425, L3130.0010 ####[facility] [address] [place], [address] ELINA RESULT,S Comment Abnormal . [facility] Comment on above: Order Comment: NUNK Result Comment: Immu nofixation shows IgG monoclonal protein with kappalight chain specificity. PLEASE NOTE: Samples from patients receiving DARZALEX(R)(daratumumab) or SARCLISA(R)(isatuximab-irfc) treatmentcan appear as an "IgG kappa" and mask a complete response(CR). If this patient is receiving these therapies, thisIFE assay interference can be removed by ordering testnumber [id number]-"Immunofixation, Daratumumab-Specific,Serum" or [id number]-"Immunofixation, Isatuximab-Specific,Serum" and submitting a new sample for testing or bycalling the lab to add this test to the current sample. Performed By: #### L 3100.3425, L3130.0010 ####[facility] [address] [place], [address] IMMUNOGLOB A QN 18 mg/dL Low 61-437 [facility] Comment on above: Order Comment: NUNK Result Comment: Resu lt confirmed on concentration. Performed By: #### L 3100.3425, L3130.0010 ####[facility] [address] [place], [address] IMMUNOGLOB G QN 404 mg/dL Low 603-1613 [facility] Comment on above: Order Comment: NUNK Performed By: #### L 3100.3425, L3130.0010 ####[facility] [address] [place], [address] IMMUNOGLOB M QN 10 mg/dL Low 20-172 [facility] Comment on above: Order Comment: NUNK Result Comment: Resu lt confirmed on concentration. Performed By: #### L 3100.3425, L3130.0010 ####[facility] [address] [place], [address] M-Raúl 0.1 g/dL Abnormal Not Observed [facility] Comment on above: Order Comment: NUNK Performed By: #### L 3100.3425, L3130.0010 ####[facility] [address] [place], [address] NOTE: Comment Normal . [facility] Comment on above: Order Comment: NUNK Result Comment: Prot ein electrophoresis scan will follow via computer,mail, or forging die sinker delivery. Performed By: #### L 3100.3425, L3130.0010 ####[facility] [address] [place], [address] Protein [Mass/Vol] 5.7 g/dL Low 6.0-8.5 [facility] Comment on above: Order Comment: NUNK Performed By: #### L 3100.3425, L3130.0010 ####[facility] [address] [place], [address] [place] Lambda Light Chainson 03-13-2025 FR KAPPA LT CHN 7.6 mg/L Normal 3.3-19.4 [facility] Comment on above: Performed By: #### L 3100.3425, L3130.0010 ####[facility] [address] [place], [address] FR LAMBDA LT CH 2.8 mg/L Abnormal 5.7-26.3 [facility] Comment on above: Performed By: #### L 3100.3425, L3130.0010 ####[facility] [address] [place], [address] KAPPA/LAMBDA % 2.71 Abnormal 0.26-1.65 [facility] Comment on above: Result Comment: Perf ormed at: CB - [facility] [address] [place], [place] [id number] Director: Micky Arreola PhD, Phone: [phone] Performed By: #### L 7181.2736, O2801.0010 ####[facility] [address] [place], [address] Absolute lymphocyte countOrd ered By: Jenn Perez on 03-08-2025 Lymphocytes Auto (Unsp spec) [#/Vol] 0.57 10*3/uL Low 0.83-4.51 [facility] Absolute neutrophil countOrd ered By: [facility] on 03-08-2025 Neutrophils (Bld) [#/Vol] 2.9 10*3/uL 2.0-7.7 [facility] Albumin Elph [Mass/Vol]Order ed By: Jenn Perez on 03-08-2025 Albumin [Mass/Vol] 3.4 g/dL 2.9-4.4 [facility] Anion gap in Serum or Plasma Ordered By: Jenn Perez on 03-08-2025 Anion gap [Moles/Vol] 12 mmol/L 5-15 [facility] Automated lymphocyte count a s percentage of total leukocytesOrdered By: Jenn Perez on 03-08-2025 Lymphocytes/100 WBC Auto (Unsp spec) 13.7 % Low 19-41 [facility] BUN/creatinine ratioOrdered By: [facility] Chris on 03-08-2025 Urea nitrogen/Creatinine [Mass ratio] 17.7 mg/mg 10-20 [facility] Basophil percentageOrdered B y: Jenn Perez on 03-08-2025 Basophils/100 WBC (Bld) 1.0 % 0-1 [facility] Bilirubin, totalOrdered By: Jenn Perez on 03-08-2025 Bilirubin [Mass/Vol] 0.25 mg/dL 0.00-1.30 [facility] CBC W/Diff, Automatedon 02-25-2024 Absolute Lymph 0.57 X10 3/uL Low 0.83-4.51 [facility] Comment on above: Performed By: #### L 500.4050, L100.0100 ####[facility] [address] [place], [address] Absolute Neut 2.9 X10 3/uL Normal 2.0-7.7 [facility] Comment on above: Performed By: #### L 500.4050, L100.0100 ####[facility] [address] [place], [address] Basophils/100 WBC (Bld) 1.0 % Normal 0-1 [facility] Comment on above: Performed By: #### L 500.4050, L100.0100 ####[facility] [address] [place], [address] Eosinophils/100 WBC (Bld) 3.6 % Normal 0-5 [facility] Comment on above: Performed By: #### L 500.4050, L100.0100 ####[facility] [address] [place], [address] Erythrocyte distribution width (RBC) [Ratio] 14.2 % Normal 11.6-14.6 [facility] Comment on above: Performed By: #### L 500.4050, L100.0100 ####[facility] [address] [place], [address] Hematocrit (Bld) [Volume fraction] 39.7 % Low 40-54 [facility] Comment on above: Performed By: #### L 500.4050, L100.0100 ####[facility] [address] [place], [address] Hemoglobin (Bld) [Mass/Vol] 13.0 g/dL Normal 13.0-16.5 [facility] Comment on above: Performed By: #### L 500.4050, L100.0100 ####[facility] [address] [place], [address] IG% 0.200 Normal 0.0-0.9 [facility] Comment on above: Result Comment: IG% - Immature Granulocytes (promyelocytes, myelocytes andmetamyelocytes) > 1% indicates that a LEFT SHIFT is Present. Performed By: #### L 500.4050, L100.0100 ####[facility] [address] [place], [address] Lymphocytes/100 WBC (Bld) 13.7 % Low 19-41 [facility] Comment on above: Performed By: #### L 500.4050, L100.0100 ####[facility] [address] [place], [address] MCH (RBC) [Entitic mass] 29.3 pg Normal 27.0-32.0 [facility] Comment on above: Performed By: #### L 500.4050, L100.0100 ####[facility] [address] [place], [address] MCHC (RBC) [Mass/Vol] 32.7 g/dL Normal 32-36 [facility] Comment on above: Performed By: #### L 500.4050, L100.0100 ####[facility] [address] [place], [address] MCV (RBC) [Entitic vol] 89.6 fL Normal 80-94 [facility] Comment on above: Performed By: #### L 500.4050, L100.0100 ####[facility] [address] [place], [address] Monocytes/100 WBC (Bld) 11.6 % High 0-10 [facility] Comment on above: Performed By: #### L 500.4050, L100.0100 ####[facility] [address] [place], [address] Neutrophils/100 WBC (Bld) 69.9 % Normal 47-70 [facility] Comment on above: Performed By: #### L 500.4050, L100.0100 ####[facility] [address] [place], [address] Nucleated RBC (Bld) [#/Vol] 0 10*3/uL Normal 0-5 [facility] Comment on above: Performed By: #### L 500.4050, L100.0100 ####[facility] [address] [place], [address] Platelet mean volume (Bld) [Entitic vol] 10.9 fL Normal 6.2-12.0 [facility] Comment on above: Performed By: #### L 500.4050, L100.0100 ####[facility] [address] [place], [address] Platelets (Bld) [#/Vol] 147 10*3/uL Low 150-450 [facility] Comment on above: Performed By: #### L 500.4050, L100.0100 ####[facility] [address] [place], [address] RBC (Bld) [#/Vol] 4.43 10*6/uL Low 4.6-6.2 [facility] Comment on above: Performed By: #### L 500.4050, L100.0100 ####[facility] [address] [place], [address] RDW SD 46.9 fl High 35.1-43.9 [facility] Comment on above: Performed By: #### L 500.4050, L100.0100 ####[facility] [address] [place], [address] WBC (Bld) [#/Vol] 4.2 10*3/uL Low 4.4-11.0 [facility] Comment on above: Performed By: #### L 500.4050, L100.0100 ####[facility] [address] [place], [address] Carbon dioxide, total [Moles /volume] in Central venous bloodOrdered By: Jenn Perez on 03-08-2025 CO2 [Moles/Vol] 25.4 mmol/L 21.0-32.0 [facility] Chloride assayOrdered By: Lorene Perez on 03-08-2025 Chloride [Moles/Vol] 103 mmol/L 98-108 [facility] Comprehensive Metabolic Prof ilon 03-08-2025 Albumin [Mass/Vol] 4.0 g/dL Normal 3.4-4.8 [facility] Comment on above: Performed By: #### L 500.4050, L100.0100 ####[facility] [address] [place], [address] Albumin/Globulin [Mass ratio] 2.2 {ratio} Normal 0.9-2.4 [facility] Comment on above: Performed By: #### L 500.4050, L100.0100 ####[facility] [address] [place], [address] ALK PHOS 59 U/L Normal 40-129 [facility] Comment on above: Performed By: #### L 500.4050, L100.0100 ####[facility] [address] [place], [address] ALT [Catalytic activity/Vol] 15 U/L Normal <=46 [facility] Comment on above: Performed By: #### L 500.4050, L100.0100 ####[facility] [address] [place], [address] AST [Catalytic activity/Vol] 17 U/L Normal <=37 [facility] Comment on above: Performed By: #### L 500.4050, L100.0100 ####[facility] [address] [place], [address] Bilirubin [Mass/Vol] 0.25 mg/dL Normal 0.00-1.30 [facility] Comment on above: Performed By: #### L 500.4050, L100.0100 ####[facility] [address] [place], [address] BUN/CRE 17.7 RATIO Normal 10-20 [facility] Comment on above: Performed By: #### L 500.4050, L100.0100 ####[facility] [address] [place], [address] Calcium [Mass/Vol] 9.1 mg/dL Normal 7.6-11.0 [facility] Comment on above: Performed By: #### L 500.4050, L100.0100 ####[facility] [address] [place], [address] Chloride [Moles/Vol] 103 mmol/L Normal 98-108 [facility] Comment on above: Performed By: #### L 500.4050, L100.0100 ####[facility] [address] [place], [address] CO2 [Moles/Vol] 25.4 mmol/L Normal 21.0-32.0 [facility] Comment on above: Performed By: #### L 500.4050, L100.0100 ####[facility] [address] [place], [address] Creatinine [Mass/Vol] 1.03 mg/dL Normal 0.70-1.20 [facility] Comment on above: Performed By: #### L 500.4050, L100.0100 ####[facility] [address] [place], [address] ECRCL 70.44 ml/min Normal 50-250 [facility] Comment on above: Performed By: #### L 500.4050, L100.0100 ####[facility] [address] [place], [address] GAP 12 Normal 5-15 [facility] Comment on above: Performed By: #### L 500.4050, L100.0100 ####[facility] [address] [place], [address] GFR/1.73 sq M.predicted among non-blacks MDRD (S/P/Bld) [Vol rate/Area] 80 mL/min/{1.73_m2} Normal >60 [facility] Comment on above: Result Comment: mL/m in/1.73m2 CKD-EPI Creatinine Equation (2020) Performed By: #### L 500.4050, L100.0100 ####[facility] [address] [place], [address] Globulin (S) [Mass/Vol] 1.8 g/dL Low 2.2-4.2 [facility] Comment on above: Performed By: #### L 500.4050, L100.0100 ####[facility] [address] [place], [address] Glucose [Mass/Vol] 99 mg/dL Normal 70-99 [facility] Comment on above: Performed By: #### L 500.4050, L100.0100 ####[facility] [address] [place], [address] Potassium [Moles/Vol] 4.2 mmol/L Normal 3.3-5.1 [facility] Comment on above: Performed By: #### L 500.4050, L100.0100 ####[facility] [address] [place], [address] Sodium [Moles/Vol] 140 mmol/L Normal 133-145 [facility] Comment on above: Performed By: #### L 500.4050, L100.0100 ####[facility] [address] [place], [address] T PROT 5.8 g/dL Low 5.9-8.4 [facility] Comment on above: Performed By: #### L 500.4050, L100.0100 ####[facility] [address] [place], [place], [id number] Urea nitrogen [Mass/Vol] 18 mg/dL Normal 4-19 [facility] Comment on above: Performed By: #### L 500.4050, L100.0100 ####[facility] [address] [place], [place], [id number] Eosinophil percentageOrdered By: Jenn Perez on 03-08-2025 Eosinophils/100 WBC (Bld) 3.6 % 0-5 [facility] Erythrocyte distribution wid th ratioOrdered By: [facility]ze on 03-08-2025 Erythrocyte distribution width (RBC) [Ratio] 14.2 % 11.6-14.6 [facility] Erythrocyte distribution wid th standard deviationOrdered By: [facility] Perez on 03-08-2025 Erythrocyte distribution width (RBC) [Ratio] 46.9 fl High 35.1-43.9 [facility] Glomerular filtration rate ( GFR) estimation/1.73 sq m using serum, plasma, or whole bOrdered By: [facility] Perez on 03-08-2025 GFR/1.73 sq M.predicted among non-blacks MDRD (S/P/Bld) [Vol rate/Area] 80 mL/min/{1.73_m2} >60 [facility] Comment on above: mL/min/1.73m2 CKD-EP I Creatinine Equation (2020) Hematocrit Auto (Bld) [Volum e fraction]Ordered By: Jenn Perez on 03-08-2025 Hematocrit (Bld) [Volume fraction] 39.7 % Low 40-54 [facility] Hemoglobin measurementOrdere d By: Jenn Perez on 03-08-2025 Hemoglobin (Bld) [Mass/Vol] 13.0 g/dL 13.0-16.5 [facility] Immature granulocytes/100 WB C Auto (Bld)Ordered By: Jenn Peerz on 03-08-2025 Immature granulocytes/100 WBC (Bld) 0.200 % 0.0-0.9 [facility] Comment on above: IG% - Immature Granu locytes (promyelocytes, myelocytes and metamyelocytes) > 1% indicates that a LEFT SHIFT is Present. Interpretation of serum or p lasma protein pattern by immunofixation (narrative resultOrdered By: Jenn Perez on 03-08-2025 Protein Fractions Immunofixation Johnny [Interp] 0.1 g/dL High Not Observed [facility] Laboratory - Chemistry and C hemistry - challengeOrdered By: Jenn Perez on 03-08-2025 AST [Catalytic activity/Vol] 17 U/L <38 [facility] MCV (mean corpuscular volume ) determinationOrdered By: Jenn Perez on 03-08-2025 MCV (RBC) [Entitic vol] 89.6 fL 80-94 [facility] Mean corpuscular hemoglobin (MCH) determinationOrdered By: Jenn Perez on 03-08-2025 MCH (RBC) [Entitic mass] 29.3 pg 27.0-32.0 [facility] Mean corpuscular hemoglobin concentration (MCHC) determinationOrdered By: Jenn Perez on 03-08-2025 MCHC (RBC) [Mass/Vol] 32.7 g/dL 32-36 [facility] Mean platelet volume determi nationOrdered By: Jenn Perez on 03-08-2025 Platelet mean volume (Bld) [Entitic vol] 10.9 fL 6.2-12.0 [facility] Monocyte percentageOrdered B y: Jenn Perez on 03-08-2025 Monocytes/100 WBC (Bld) 11.6 % High 0-10 [facility] Neutrophil percentageOrdered By: Jenn Perez on 03-08-2025 Neutrophils/100 WBC (Bld) 69.9 % 47-70 [facility] No Panel InformationOrdered By: Jenn Perez on 03-08-2025 Addendum Document Comment . [facility] Comment on above: Protein electrophore sis scan will follow via computer,mail, or forging die sinker delivery. Nucleated red blood cell per centageOrdered By: Jenn Perez on 03-08-2025 Nucleated RBC/100 WBC (Bld) [Ratio] 0 % 0-5 [facility] Oncology Visit Reporton 02-25 Oncology Visit Report Normal [facility] Platelet countOrdered By: Lorene Perez on 03-08-2025 Platelets (Bld) [#/Vol] 147 10*3/uL Low 150-450 [facility] Potassium measurement (mass/ volume)Ordered By: Jenn Perez on 03-08-2025 Potassium (Unsp spec) [Mass/Vol] 4.2 mmol/L 3.3-5.1 [facility] RBC Auto (Bld) [#/Vol]Ordere d By: Jenn Perez on 03-08-2025 RBC (Bld) [#/Vol] 4.43 10*6/uL Low 4.6-6.2 [facility] Serum creatinine measurement (mass/volume)Ordered By: Jenn Perez on 03-08-2025 Creatinine [Mass/Vol] 1.03 mg/dL 0.70-1.20 [facility] Serum globulin measurementOr dered By: Jenn Perez on 03-08-2025 Globulin (S) [Mass/Vol] 1.8 g/dL Low 2.2-4.2 [facility] Serum glucose measurement (m ass/volume)Ordered By: Jenn Perez on 03-08-2025 Glucose [Mass/Vol] 99 mg/dL 70-99 [facility] Serum immunoglobulin kappa l ight chains/immunoglobulin lambda light chains mass ratioOrdered By: Jenn Perez on 03-08-2025 Immunoglobulin light chains.kappa/Immunoglobu dav light chains.lambda (S) [Mass ratio] 2.71 High 0.26-1.65 [facility] Comment on above: Performed at: [place] [id number] Director: Micky Arreola PhD, Phone: [phone] Serum or plasma IgA measurem ent (mass/volume)Ordered By: Jenn Perez on 03-08-2025 IgA [Mass/Vol] 18 mg/dL Low 61-437 [facility] Comment on above: Result confirmed on concentration. Serum or plasma IgG measurem ent (mass/volume)Ordered By: Jenn Perez on 03-08-2025 IgG [Mass/Vol] 404 mg/dL Low 603-1613 [facility] Serum or plasma alanine oropeza otransferase (ALT) measurementOrdered By: Jenn Perez on 03-08-2025 ALT [Catalytic activity/Vol] 15 U/L <47 [facility] Serum or plasma albumin giovanny urement (mass/volume)Ordered By: Jenn Perez on 03-08-2025 Albumin [Mass/Vol] 4.0 g/dL 3.4-4.8 [facility] Serum or plasma albumin/glob ulin mass ratioOrdered By: Jenn Perez on 03-08-2025 Albumin/Globulin [Mass ratio] 2.2 {ratio} 0.9-2.4 [facility] Serum or plasma alkaline stacy sphatase measurementOrdered By: Jenn Perez on 03-08-2025 ALP [Catalytic activity/Vol] 59 U/L 40-129 [facility] Serum or plasma alpha 1 glob ulin measurement by electrophoresis (mass/volume)Ordered By: Jenn Perez on 03-08-2025 Alpha 1 globulin Elph [Mass/Vol] 0.2 g/dL 0.0-0.4 [facility] Alpha 1 globulin Elph [Mass/Vol] 0.9 g/dL 0.4-1.0 [facility] Serum or plasma beta globuli n measurement by electrophoresis (mass/volume)Ordered By: Jenn Perez on 03-08-2025 Beta globulin Elph [Mass/Vol] 0.9 g/dL 0.7-1.3 [facility] Serum or plasma calcium giovanny urement (mass/volume)Ordered By: Jenn Perez on 03-08-2025 Calcium [Mass/Vol] 9.1 mg/dL 7.6-11.0 [facility] Serum or plasma gamma globul in measurement by electrophoresis (mass/volume)Ordered By: Jenn Perez on 03-08-2025 Gamma globulin Elph [Mass/Vol] 0.3 g/dL Low 0.4-1.8 [facility] Serum or plasma immunoelectr ophoresis interpretation (nominal result)Ordered By: Jenn Perez on 03-08-2025 Interpretation IEP [Interp] Comment High . [facility] Comment on above: Immunofixation shows IgG monoclonal protein with kappalight chain specificity. PLEASE NOTE: Samples from patients receiving DARZALEX(R)(daratumumab) or SARCLISA(R)(isatuximab-irfc) treatmentcan appear as an "IgG kappa" and mask a complete response(CR). If this patient is receiving these therapies, thisIFE assay interference can be removed by ordering testnumber [id number]-"Immunofixation, Daratumumab-Specific,Serum" or [id number]-"Immunofixation, Isatuximab-Specific,Serum" and submitting a new sample for testing or bycalling the lab to add this test to the current sample. Serum or plasma immunoglobul in kappa light chains measurement (mass/volume)Ordered By: Jenn Perez on 03-08-2025 Immunoglobulin light chains.kappa [Mass/Vol] 7.6 mg/L 3.3-19.4 [facility] Serum or plasma protein giovanny urement (mass/volume)Ordered By: Jenn Perez on 03-08-2025 Protein [Mass/Vol] 5.7 g/dL Low 6.0-8.5 [facility] Serum or plasma urea nitroge n measurement (mass/volume)Ordered By: Jenn Perez on 03-08-2025 Urea nitrogen [Mass/Vol] 18 mg/dL 4-19 [facility] Sodium levelOrdered By: Georgina Perez on 03-08-2025 Sodium [Moles/Vol] 140 mmol/L 133-145 [facility] Total proteinOrdered By: Lam Perez on 03-08-2025 Protein [Mass/Vol] 5.8 g/dL Low 5.9-8.4 [facility] White blood cell (WBC) count Ordered By: Jenn Perez on 03-08-2025 WBC (Bld) [#/Vol] 4.2 10*3/uL Low 4.4-11.0 [facility] CBC W/Diff, Automatedon Absolute Neut Normal 2.0-7.7 [facility] Comment on above: Result Comment: NEVE R DRAWN Performed By: #### L 100.0100, L500.4050 ####[facility] [address] [place], [address] HCT Normal 40-54 [facility] Comment on above: Result Comment: NEVE R DRAWN Performed By: #### L 100.0100, L500.4050 ####[facility] [address] [place], [address] HGB Normal 13.0-16.5 [facility] Comment on above: Result Comment: NEVE R DRAWN Performed By: #### L 100.0100, L500.4050 ####[facility] [address] [place], [address] MCH Normal 27.0-32.0 [facility] Comment on above: Result Comment: NEVE R DRAWN Performed By: #### L 100.0100, L500.4050 ####[facility] [address] [place], [address] MCHC Normal 32-36 [facility] Comment on above: Result Comment: NEVE R DRAWN Performed By: #### L 100.0100, L500.4050 ####[facility] [address] [place], [address] MCV Normal 80-94 [facility] Comment on above: Result Comment: NEVE R DRAWN Performed By: #### L 100.0100, L500.4050 ####[facility] [address] [place], [address] NEUT% Normal 47-70 [facility] Comment on above: Result Comment: NEVE R DRAWN Performed By: #### L 100.0100, L500.4050 ####[facility] [address] [place], [address] PLT Normal 150-450 [facility] Comment on above: Result Comment: NEVE R DRAWN Performed By: #### L 100.0100, L500.4050 ####[facility] [address] [place], [address] RBC Normal 4.6-6.2 [facility] Comment on above: Result Comment: NEVE R DRAWN Performed By: #### L 100.0100, L500.4050 ####[facility] [address] [place], [address] RDW CV Normal 11.6-14.6 [facility] Comment on above: Result Comment: NEVE R DRAWN Performed By: #### L 100.0100, L500.4050 ####[facility] [address] [place], [address] RDW SD Normal 35.1-43.9 [facility] Comment on above: Result Comment: NEVE R DRAWN Performed By: #### L 100.0100, L500.4050 ####[facility] [address] [place], [address] WBC Normal 4.4-11.0 [facility] Comment on above: Result Comment: NEVE R DRAWN Performed By: #### L 100.0100, L500.4050 ####[facility] [address] [place], [address] Comprehensive Metabolic Prof ilon 03-01-2025 ALB Normal 3.4-4.8 [facility] Comment on above: Result Comment: @ CA NCELLED AFTER CONFIRMING WITH KAMILA FLORES RN Performed By: #### L 100.0100, L500.4050 ####[facility] [address] [place], [address] ALK PHOS Normal 40-129 [facility] Comment on above: Result Comment: @ CA NCELLED AFTER CONFIRMING WITH KAMILA FLORES RN Performed By: #### L 100.0100, L500.4050 ####[facility] [address] [place], [address] ALT Normal <=46 [facility] Comment on above: Result Comment: @ CA NCELLED AFTER CONFIRMING WITH KAMILA FLORES RN Performed By: #### L 100.0100, L500.4050 ####[facility] [address] [place], [address] AST Normal <=37 [facility] Comment on above: Result Comment: @ CA NCELLED AFTER CONFIRMING WITH KAMILA FLORES RN Performed By: #### L 100.0100, L500.4050 ####[facility] [address] [place], [address] BUN Normal 4-19 [facility] Comment on above: Result Comment: @ CA NCELLED AFTER CONFIRMING WITH KAMILA FLORES RN Performed By: #### L 100.0100, L500.4050 ####[facility] [address] [place], [address] BUN/CRE Normal 10-20 [facility] Comment on above: Result Comment: @ CA NCELLED AFTER CONFIRMING WITH KAMILA FLORES RN Performed By: #### L 100.0100, L500.4050 ####[facility] [address] [place], [address] Calcium Normal 7.6-11.0 [facility] Comment on above: Result Comment: @ CA NCELLED AFTER CONFIRMING WITH KAMILA FLORES RN Performed By: #### L 100.0100, L500.4050 ####[facility] [address] [place], [address] CL Normal 98-108 [facility] Comment on above: Result Comment: @ CA NCELLED AFTER CONFIRMING WITH KAMILA FLORES RN Performed By: #### L 100.0100, L500.4050 ####[facility] [address] [place], [address] CO2 Normal 21.0-32.0 [facility] Comment on above: Result Comment: @ CA NCELLED AFTER CONFIRMING WITH KAMILA FLORES RN Performed By: #### L 100.0100, L500.4050 ####[facility] [address] [place], [address] CREAT,SERUM Normal 0.70-1.20 [facility] Comment on above: Result Comment: @ CA NCELLED AFTER CONFIRMING WITH KAMILA FLORES RN Performed By: #### L 100.0100, L500.4050 ####[facility] [address] [place], [address] eGFR Normal >60 [facility] Comment on above: Result Comment: @ CA NCELLED AFTER CONFIRMING WITH KAMILA FLORES RN Performed By: #### L 100.0100, L500.4050 ####[facility] [address] [place], [address] GAP Normal 5-15 [facility] Comment on above: Result Comment: @ CA NCELLED AFTER CONFIRMING WITH KAMILA FLORES RN Performed By: #### L 100.0100, L500.4050 ####[facility] [address] [place], [address] GLU Normal 70-99 [facility] Comment on above: Result Comment: @ CA NCELLED AFTER CONFIRMING WITH KAMILA FLORES RN Performed By: #### L 100.0100, L500.4050 ####[facility] [address] [place], [address] Potassium Normal 3.3-5.1 [facility] Comment on above: Result Comment: @ CA NCELLED AFTER CONFIRMING WITH KAMILA FLORES RN Performed By: #### L 100.0100, L500.4050 ####[facility] [address] [place], [address] T BILI Normal 0.00-1.30 [facility] Comment on above: Result Comment: @ CA NCELLED AFTER CONFIRMING WITH KAMILA FLORES RN Performed By: #### L 100.0100, L500.4050 ####[facility] [address] [place], [address] T PROT Normal 5.9-8.4 [facility] Comment on above: Result Comment: @ CA NCELLED AFTER CONFIRMING WITH KAMILA FLORES RN Performed By: #### L 100.0100, L500.4050 ####[facility] [address] [place], [address] Comprehensive Metabolic Profil Normal 133-145 [facility] Comment on above: Result Comment: @ CA NCELLED AFTER CONFIRMING WITH KAMILA FLORES RN Performed By: #### L 100.0100, L500.4050 ####[facility] [address] [place], [address] ELINA + Protein Elect, Serumon 03-01-2025 A/G RATIO Normal [facility] Comment on above: Result Comment: NEVE R DRAWN Performed By: #### L 3130.0010, L3100.3425 ####[facility] [address] [place], [address] ALBUMIN Normal [facility] Comment on above: Result Comment: NEVE R DRAWN Performed By: #### L 3130.0010, L3100.3425 ####[facility] [address] [place], [address] TUQIR-[id number] Normal [facility] Comment on above: Result Comment: NEVE R DRAWN Performed By: #### L 3130.0010, L3100.3425 ####[facility] [address] [place], [address] [id number]-[id number] Normal [facility] Comment on above: Result Comment: NEVE R DRAWN Performed By: #### L 3130.0010, L3100.3425 ####[facility] [address] [place], [address] BETA GLOBULIN Normal [facility] Comment on above: Result Comment: NEVE R DRAWN Performed By: #### L 3130.0010, L3100.3425 ####[facility] [address] [place], [address] GAMMA GLOBULIN Normal [facility] Comment on above: Result Comment: NEVE R DRAWN Performed By: #### L 3130.0010, L3100.3425 ####[facility] [address] [place], [address] IMMUNOGLOB A QN Normal [facility] Comment on above: Result Comment: NEVE R DRAWN Performed By: #### L 3130.0010, L3100.3425 ####[facility] [address] [place], [address] IMMUNOGLOB G QN Normal [facility] Comment on above: Result Comment: NEVE R DRAWN Performed By: #### L 3130.0010, L3100.3425 ####[facility] [address] [place], [address] IMMUNOGLOB M QN Normal [facility] Comment on above: Result Comment: NEVE R DRAWN Performed By: #### L 3130.0010, L3100.3425 ####[facility] [address] [place], [address] M-Raúl Normal [facility] Comment on above: Result Comment: NEVE R DRAWN Performed By: #### L 3130.0010, L3100.3425 ####[facility] [address] [place], [address] PROTEIN,TOTAL Normal 6.0-8.5 [facility] Comment on above: Result Comment: NEVE R DRAWN Performed By: #### L 3130.0010, L3100.3425 ####[facility] [address] [place], [address] [place] Lambda Light Chainson 03-01-2025 FR KAPPA LT CHN Normal [facility] Comment on above: Result Comment: NEVE R DRAWN Performed By: #### L 3130.0010, L3100.3425 ####[facility] [address] [place], [place], [address] FR LAMBDA LT CH Normal [facility] Comment on above: Result Comment: NEVE R DRAWN Performed By: #### L 3130.0010, L3100.3425 ####[facility] [address] [place], [place], [address] KAPPA/LAMBDA % Normal [facility] Comment on above: Result Comment: NEVE R DRAWN Performed By: #### L 3130.0010, L3100.3425 ####[facility] [address] [place], [place], [address] Calculated very low density lipoprotein (VLDL) cholesterol measurementOrdered By: Blade Milner on 02-28-2025 Calculated very low density lipoprotein (VLDL) cholesterol measurement 24 mg/dL 5-40 [facility] LDL calc ser/plasOrdered By: Blade Milner on 02-28-2025 Cholesterol in LDL [Mass/Vol] 110 mg/dL [facility] Comment on above: Uorgpxwdpd=540-906 m g/dL & Higher Rtyf=329 mg/dL or greater Screening total cholesterol/ high density lipoprotein (HDL) cholesterol ratioOrdered By: Blade Milner on 02-28-2025 Cholesterol.total/Choles terol in HDL [Mass ratio] 4.59 {ratio} [facility] Serum or plasma cholesterol in HDL measurement (mass/volume)Ordered By: Blade Milner on 02-28-2025 Cholesterol in HDL [Mass/Vol] 38 mg/dL Low >40 [facility] Comment on above: National Cholesterol Education Program (NCEP) guidelines:<40 mg/dL: Low HDL-cholesterol (major risk factor for CHD)>= 60 mg/dL: High HDL-cholesterol (negative risk factor for CHD)HDL-cholesterol is affected by a number of factors, e.g. smoking, exercise, hormones, sex and age. Serum or plasma cholesterol measurement (mass/volume)Ordered By: Blade Milner on 02-28-2025 Cholesterol [Mass/Vol] 172 mg/dL <201 [facility] Comment on above: Cholesterol level, D esirable <200 mg/dLBorderline high cholesterol 200-239 mg/dLHigh cholesterol >=240 mg/dLRecommendations of the NCEP Adult Treatment Panel for the following risk-cutoff thresholds for the [place] population. TSH DL <= 0.005 mIU/L QnOrde red By: Blade Milner on 02-28-2025 TSH Qn 2.700 uIU/mL 0.300-4.200 [facility] ThyroxineOrdered By: Blade nolan on 02-28-2025 T4 [Mass/Vol] 7.2 ug/dL 4.5-12.1 [facility] Triglycerides measurementOrd ered By: Blade Milner on 02-28-2025 Triglyceride [Mass/Vol] 122 mg/dL <199 [facility] Comment on above: The drugs N-Acetylcy steine and Metamizole may falsely depress this assay. Normal range: <150 mg/dLBorderline High: 150-199 mg/dLHigh: 200-499 mg/dLVery High: >500 mg/dL TSH DL <= 0.005 mIU/L QnOrde red By: Blade Milner on 02-20-2025 TSH Qn 1.690 uIU/mL 0.300-4.200 [facility] ThyroxineOrdered By: Blade nolan on 02-20-2025 T4 [Mass/Vol] 7.1 ug/dL 4.5-12.1 [facility] Urine Cultureon 02-02-2025 URC Below infection leve l. Gram negative mino [place] Count <1000 Normal [facility] Comment on above: Performed By: #### M 100.2200 ####[facility] [address] [place], [address] Albumin Elph [Mass/Vol]Order ed By: Zayda Hanson on 02-01-2025 Albumin [Mass/Vol] 3.2 g/dL 2.9-4.4 [facility] CBC W/Diff, Automatedon Absolute Neut Normal 2.0-7.7 [facility] Comment on above: Result Comment: BLOO D WORK WAS NOT DRAWN Performed By: #### L 100.0100, L500.4050 ####[facility] [address] [place], [address] HCT Normal 40-54 [facility] Comment on above: Result Comment: BLOO D WORK WAS NOT DRAWN Performed By: #### L 100.0100, L500.4050 ####[facility] [address] [place], [address] HGB Normal 13.0-16.5 [facility] Comment on above: Result Comment: BLOO D WORK WAS NOT DRAWN Performed By: #### L 100.0100, L500.4050 ####[facility] [address] [place], [address] MCH Normal 27.0-32.0 [facility] Comment on above: Result Comment: BLOO D WORK WAS NOT DRAWN Performed By: #### L 100.0100, L500.4050 ####[facility] [address] [place], [address] MCHC Normal 32-36 [facility] Comment on above: Result Comment: BLOO D WORK WAS NOT DRAWN Performed By: #### L 100.0100, L500.4050 ####[facility] [address] [place], [address] MCV Normal 80-94 [facility] Comment on above: Result Comment: BLOO D WORK WAS NOT DRAWN Performed By: #### L 100.0100, L500.4050 ####[facility] [address] [place], [address] NEUT% Normal 47-70 [facility] Comment on above: Result Comment: BLOO D WORK WAS NOT DRAWN Performed By: #### L 100.0100, L500.4050 ####[facility] [address] [place], [address] PLT Normal 150-450 [facility] Comment on above: Result Comment: BLOO D WORK WAS NOT DRAWN Performed By: #### L 100.0100, L500.4050 ####[facility] [address] [place], [address] RBC Normal 4.6-6.2 [facility] Comment on above: Result Comment: BLOO D WORK WAS NOT DRAWN Performed By: #### L 100.0100, L500.4050 ####[facility] [address] [place], [address] RDW CV Normal 11.6-14.6 [facility] Comment on above: Result Comment: BLOO D WORK WAS NOT DRAWN Performed By: #### L 100.0100, L500.4050 ####[facility] [address] [place], [address] RDW SD Normal 35.1-43.9 [facility] Comment on above: Result Comment: BLOO D WORK WAS NOT DRAWN Performed By: #### L 100.0100, L500.4050 ####[facility] [address] [place], [address] WBC Normal 4.4-11.0 [facility] Comment on above: Result Comment: BLOO D WORK WAS NOT DRAWN Performed By: #### L 100.0100, L500.4050 ####[facility] [address] [place], [address] CNPNon 02-01-2025 CNPN Telephone (AKURFL) ARMAND BARRON ([id number]) 1955 M Date Time Provider Department 02/01/25 RIC SOUZA During your visit today, we recorded the following information about you: LinMike 02/01/2025 3:48 PM Signed [facility] requested records from this patient's last office visit with Dr. Souza and last renal US. [facility] . Records were faxed 02/01/25 and scanned [...] Status:Closed by MIKE CEBALLOS on 02/01/25 Normal [facility] Comprehensive Metabolic Prof ilon 02-01-2025 ALB Normal 3.4-4.8 [facility] Comment on above: Result Comment: BLOO D WORK WAS NOT DRAWN Performed By: #### L 100.0100, L500.4050 ####[facility] [address] [place], [address] ALK PHOS Normal 40-129 [facility] Comment on above: Result Comment: BLOO D WORK WAS NOT DRAWN Performed By: #### L 100.0100, L500.4050 ####[facility] [address] [place], [address] ALT Normal <=46 [facility] Comment on above: Result Comment: BLOO D WORK WAS NOT DRAWN Performed By: #### L 100.0100, L500.4050 ####[facility] [address] [place], [address] AST Normal <=37 [facility] Comment on above: Result Comment: BLOO D WORK WAS NOT DRAWN Performed By: #### L 100.0100, L500.4050 ####[facility] [address] [place], [address] BUN Normal 4-19 [facility] Comment on above: Result Comment: BLOO D WORK WAS NOT DRAWN Performed By: #### L 100.0100, L500.4050 ####[facility] [address] [place], [address] BUN/CRE Normal 10-20 [facility] Comment on above: Result Comment: BLOO D WORK WAS NOT DRAWN Performed By: #### L 100.0100, L500.4050 ####[facility] [address] [place], [address] Calcium Normal 7.6-11.0 [facility] Comment on above: Result Comment: BLOO D WORK WAS NOT DRAWN Performed By: #### L 100.0100, L500.4050 ####[facility] [address] [place], [address] CL Normal 98-108 [facility] Comment on above: Result Comment: BLOO D WORK WAS NOT DRAWN Performed By: #### L 100.0100, L500.4050 ####[facility] [address] [place], [address] CO2 Normal 21.0-32.0 [facility] Comment on above: Result Comment: BLOO D WORK WAS NOT DRAWN Performed By: #### L 100.0100, L500.4050 ####[facility] [address] [place], [address] CREAT,SERUM Normal 0.70-1.20 [facility] Comment on above: Result Comment: BLOO D WORK WAS NOT DRAWN Performed By: #### L 100.0100, L500.4050 ####[facility] [address] [place], [address] eGFR Normal >60 [facility] Comment on above: Result Comment: BLOO D WORK WAS NOT DRAWN Performed By: #### L 100.0100, L500.4050 ####[facility] [address] [place], [address] GAP Normal 5-15 [facility] Comment on above: Result Comment: BLOO D WORK WAS NOT DRAWN Performed By: #### L 100.0100, L500.4050 ####[facility] [address] [place], [address] GLU Normal 70-99 [facility] Comment on above: Result Comment: BLOO D WORK WAS NOT DRAWN Performed By: #### L 100.0100, L500.4050 ####[facility] [address] [place], [address] Potassium Normal 3.3-5.1 [facility] Comment on above: Result Comment: BLOO D WORK WAS NOT DRAWN Performed By: #### L 100.0100, L500.4050 ####[facility] [address] [place], [address] T BILI Normal 0.00-1.30 [facility] Comment on above: Result Comment: BLOO D WORK WAS NOT DRAWN Performed By: #### L 100.0100, L500.4050 ####[facility] [address] [place], [address] T PROT Normal 5.9-8.4 [facility] Comment on above: Result Comment: BLOO D WORK WAS NOT DRAWN Performed By: #### L 100.0100, L500.4050 ####[facility] [address] [place], [address] Comprehensive Metabolic Profil Normal 133-145 [facility] Comment on above: Result Comment: BLOO D WORK WAS NOT DRAWN Performed By: #### L 100.0100, L500.4050 ####[facility] [address] [place], [address] Interpretation of serum or p lasma protein pattern by immunofixation (narrative resultOrdered By: Zayda Hanson on 02-01-2025 Protein Fractions Immunofixation Johnny [Interp] 0.1 g/dL High Not Observed [facility] No Panel InformationOrdered By: Zayda Hanson on 02-01-2025 Addendum Document Comment . [facility] Comment on above: Protein electrophore sis scan will follow via computer,mail, or forging die sinker delivery. Oncology Visit Reporton Oncology Visit Report Normal [facility] Serum globulin measurement ( mass/volume)Ordered By: Zayda Hanson on 02-01-2025 Globulin (S) [Mass/Vol] 2.2 g/dL 2.2-3.9 [facility] Serum immunoglobulin kappa l ight chains/immunoglobulin lambda light chains mass ratioOrdered By: Zayda Hanson on 02-01-2025 Immunoglobulin light chains.kappa/Immunoglobu dav light chains.lambda (S) [Mass ratio] 2.91 High 0.26-1.65 [facility] Comment on above: Performed at: [facility] - [address] [id number] Director: Micky Arreola PhD, Phone: [phone] Serum or plasma IgA measurem ent (mass/volume)Ordered By: Zayda Hanson on 02-01-2025 IgA [Mass/Vol] 18 mg/dL Low 61-437 [facility] Comment on above: Result confirmed on concentration. Serum or plasma IgG measurem ent (mass/volume)Ordered By: Zayda Hanson on 02-01-2025 IgG [Mass/Vol] 433 mg/dL Low 603-1613 [facility] Serum or plasma alpha 1 glob ulin measurement by electrophoresis (mass/volume)Ordered By: Zayda Hanson on 02-01-2025 Alpha 1 globulin Elph [Mass/Vol] 0.2 g/dL 0.0-0.4 [facility] Alpha 1 globulin Elph [Mass/Vol] 0.8 g/dL 0.4-1.0 [facility] Serum or plasma beta globuli n measurement by electrophoresis (mass/volume)Ordered By: Zayda Hanson on 02-01-2025 Beta globulin Elph [Mass/Vol] 0.8 g/dL 0.7-1.3 [facility] Serum or plasma gamma globul in measurement by electrophoresis (mass/volume)Ordered By: Zayda Hanson on 02-01-2025 Gamma globulin Elph [Mass/Vol] 0.4 g/dL 0.4-1.8 [facility] Serum or plasma immunoelectr ophoresis interpretation (nominal result)Ordered By: Zayda Hanson on 02-01-2025 Interpretation IEP [Interp] Comment High . [facility] Comment on above: Immunofixation shows IgG monoclonal protein with kappalight chain specificity. PLEASE NOTE: Samples from patients receiving DARZALEX(R)(daratumumab) or SARCLISA(R)(isatuximab-irfc) treatmentcan appear as an "IgG kappa" and mask a complete response(CR). If this patient is receiving these therapies, thisIFE assay interference can be removed by ordering testnumber [id number]-"Immunofixation, Daratumumab-Specific,Serum" or [id number]-"Immunofixation, Isatuximab-Specific,Serum" and submitting a new sample for testing or bycalling the lab to add this test to the current sample. Serum or plasma immunoglobul in kappa light chains measurement (mass/volume)Ordered By: Zayda Hanson on 02-01-2025 Immunoglobulin light chains.kappa [Mass/Vol] 6.4 mg/L 3.3-19.4 [facility] Serum or plasma protein giovanny urement (mass/volume)Ordered By: Zayda Hanson on 02-01-2025 Protein [Mass/Vol] 5.4 g/dL Low 6.0-8.5 [facility] Abdomen/Pelvis W IV Cont ONL Yon 01-31-2025 Abdomen/Pelvis W IV Cont ONLY Normal [facility] Absolute lymphocyte countOrd ered By: Marleni Newman on 01-31-2025 Lymphocytes Auto (Unsp spec) [#/Vol] 0.55 10*3/uL Low 0.83-4.51 [facility] Absolute neutrophil countOrd ered By: Marleni Newman on 01-31-2025 Neutrophils (Bld) [#/Vol] 2.8 10*3/uL 2.0-7.7 [facility] Anion gap in Serum or Plasma Ordered By: Marleni Newman on 01-31-2025 Anion gap [Moles/Vol] 13 mmol/L 5-15 [facility] Automated lymphocyte count a s percentage of total leukocytesOrdered By: Marleni Newman on 01-31-2025 Lymphocytes/100 WBC Auto (Unsp spec) 14.0 % Low 19-41 [facility] BUN/creatinine ratioOrdered By: Marleni Newman on 01-31-2025 Urea nitrogen/Creatinine [Mass ratio] 17.6 mg/mg 10-20 [facility] Basophil percentageOrdered B y: Marleni Newman on 01-31-2025 Basophils/100 WBC (Bld) 1.3 % High 0-1 [facility] Bilirubin Test strip Ql (U)O rdered By: Marleni Newman on 01-31-2025 Bilirubin Ql (U) Negative Negative [facility] Bilirubin, totalOrdered By: Marleni Newman on 01-31-2025 Bilirubin [Mass/Vol] 0.31 mg/dL 0.00-1.30 [facility] CBC W/Diff, Automatedon 05-0 7-2024 Absolute Lymph 0.55 X10 3/uL Low 0.83-4.51 [facility] Comment on above: Performed By: #### L 501.2450, L100.0100, L500.4050, L503.6005 ####[facility] [address] [place], [address] Absolute Neut 2.8 X10 3/uL Normal 2.0-7.7 [facility] Comment on above: Performed By: #### L 501.2450, L100.0100, L500.4050, L503.6005 ####[facility] [address] [place], [address] Basophils/100 WBC (Bld) 1.3 % High 0-1 [facility] Comment on above: Performed By: #### L 501.2450, L100.0100, L500.4050, L503.6005 ####[facility] [address] [place], [address] Eosinophils/100 WBC (Bld) 2.3 % Normal 0-5 [facility] Comment on above: Performed By: #### L 501.2450, L100.0100, L500.4050, L503.6005 ####[facility] [address] [place], [address] Erythrocyte distribution width (RBC) [Ratio] 14.1 % Normal 11.6-14.6 [facility] Comment on above: Performed By: #### L 501.2450, L100.0100, L500.4050, L503.6005 ####[facility] [address] [place], [address] Hematocrit (Bld) [Volume fraction] 40.3 % Normal 40-54 [facility] Comment on above: Performed By: #### L 501.2450, L100.0100, L500.4050, L503.6005 ####[facility] [address] [place], [address] Hemoglobin (Bld) [Mass/Vol] 13.5 g/dL Normal 13.0-16.5 [facility] Comment on above: Performed By: #### L 501.2450, L100.0100, L500.4050, L503.6005 ####[facility] [address] [place], [address] IG% 0.300 Normal 0.0-0.9 [facility] Comment on above: Result Comment: IG% - Immature Granulocytes (promyelocytes, myelocytes andmetamyelocytes) > 1% indicates that a LEFT SHIFT is Present. Performed By: #### L 501.2450, L100.0100, L500.4050, L503.6005 ####[facility] [address] [place], [address] Lymphocytes/100 WBC (Bld) 14.0 % Low 19-41 [facility] Comment on above: Performed By: #### L 501.2450, L100.0100, L500.4050, L503.6005 ####[facility] [address] [place], [address] MCH (RBC) [Entitic mass] 29.6 pg Normal 27.0-32.0 [facility] Comment on above: Performed By: #### L 501.2450, L100.0100, L500.4050, L503.6005 ####[facility] [address] [place], [address] MCHC (RBC) [Mass/Vol] 33.5 g/dL Normal 32-36 [facility] Comment on above: Performed By: #### L 501.2450, L100.0100, L500.4050, L503.6005 ####[facility] [address] [place], [address] MCV (RBC) [Entitic vol] 88.4 fL Normal 80-94 [facility] Comment on above: Performed By: #### L 501.2450, L100.0100, L500.4050, L503.6005 ####[facility] [address] [place], [address] Monocytes/100 WBC (Bld) 10.7 % High 0-10 [facility] Comment on above: Performed By: #### L 501.2450, L100.0100, L500.4050, L503.6005 ####[facility] [address] [place], [address] Neutrophils/100 WBC (Bld) 71.4 % High 47-70 [facility] Comment on above: Performed By: #### L 501.2450, L100.0100, L500.4050, L503.6005 ####[facility] [address] [place], [address] Nucleated RBC (Bld) [#/Vol] 0 10*3/uL Normal 0-5 [facility] Comment on above: Performed By: #### L 501.2450, L100.0100, L500.4050, L503.6005 ####[facility] [address] [place], [address] Platelet mean volume (Bld) [Entitic vol] 10.4 fL Normal 6.2-12.0 [facility] Comment on above: Performed By: #### L 501.2450, L100.0100, L500.4050, L503.6005 ####[facility] [address] [place], [address] Platelets (Bld) [#/Vol] 173 10*3/uL Normal 150-450 [facility] Comment on above: Performed By: #### L 501.2450, L100.0100, L500.4050, L503.6005 ####[facility] [address] [place], [address] RBC (Bld) [#/Vol] 4.56 10*6/uL Low 4.6-6.2 [facility] Comment on above: Performed By: #### L 501.2450, L100.0100, L500.4050, L503.6005 ####[facility] [address] [place], [address] RDW SD 45.8 fl High 35.1-43.9 [facility] Comment on above: Performed By: #### L 501.2450, L100.0100, L500.4050, L503.6005 ####[facility] [address] [place], [address] WBC (Bld) [#/Vol] 3.9 10*3/uL Low 4.4-11.0 [facility] Comment on above: Performed By: #### L 501.2450, L100.0100, L500.4050, L503.6005 ####[facility] [address] [place], [address] Carbon dioxide, total [Moles /volume] in Central venous bloodOrdered By: Marleni Newman on 01-31-2025 CO2 [Moles/Vol] 24.6 mmol/L 21.0-32.0 [facility] Chloride assayOrdered By: Martha Newman on 01-31-2025 Chloride [Moles/Vol] 102 mmol/L 98-108 [facility] Comprehensive Metabolic Prof ilon 01-31-2025 Albumin [Mass/Vol] 4.0 g/dL Normal 3.4-4.8 [facility] Comment on above: Performed By: #### L 501.2450, L100.0100, L500.4050, L503.6005 ####[facility] [address] [place], [address] Albumin/Globulin [Mass ratio] 1.9 {ratio} Normal 0.9-2.4 [facility] Comment on above: Performed By: #### L 501.2450, L100.0100, L500.4050, L503.6005 ####[facility] [address] [place], [address] ALK PHOS 64 U/L Normal 40-129 [facility] Comment on above: Performed By: #### L 501.2450, L100.0100, L500.4050, L503.6005 ####[facility] [address] [place], [address] ALT [Catalytic activity/Vol] 21 U/L Normal <=46 [facility] Comment on above: Performed By: #### L 501.2450, L100.0100, L500.4050, L503.6005 ####[facility] [address] [place], [address] AST [Catalytic activity/Vol] 22 U/L Normal <=37 [facility] Comment on above: Performed By: #### L 501.2450, L100.0100, L500.4050, L503.6005 ####[facility] [address] [place], [address] Bilirubin [Mass/Vol] 0.31 mg/dL Normal 0.00-1.30 [facility] Comment on above: Performed By: #### L 501.2450, L100.0100, L500.4050, L503.6005 ####[facility] [address] [place], [address] BUN/CRE 17.6 RATIO Normal 10-20 [facility] Comment on above: Performed By: #### L 501.2450, L100.0100, L500.4050, L503.6005 ####[facility] [address] [place], [address] Calcium [Mass/Vol] 9.4 mg/dL Normal 7.6-11.0 [facility] Comment on above: Performed By: #### L 501.2450, L100.0100, L500.4050, L503.6005 ####[facility] [address] [place], [address] Chloride [Moles/Vol] 102 mmol/L Normal 98-108 [facility] Comment on above: Performed By: #### L 501.2450, L100.0100, L500.4050, L503.6005 ####[facility] [address] [place], [address] CO2 [Moles/Vol] 24.6 mmol/L Normal 21.0-32.0 [facility] Comment on above: Performed By: #### L 501.2450, L100.0100, L500.4050, L503.6005 ####[facility] [address] [place], [address] Creatinine [Mass/Vol] 0.94 mg/dL Normal 0.70-1.20 [facility] Comment on above: Performed By: #### L 501.2450, L100.0100, L500.4050, L503.6005 ####[facility] [address] [place], [address] ECRCL 77.55 ml/min Normal 50-250 [facility] Comment on above: Performed By: #### L 501.2450, L100.0100, L500.4050, L503.6005 ####[facility] [address] [place], [address] GAP 13 Normal 5-15 [facility] Comment on above: Performed By: #### L 501.2450, L100.0100, L500.4050, L503.6005 ####[facility] [address] [place], [address] GFR/1.73 sq M.predicted among non-blacks MDRD (S/P/Bld) [Vol rate/Area] 89 mL/min/{1.73_m2} Normal >60 [facility] Comment on above: Result Comment: mL/m in/1.73m2 CKD-EPI Creatinine Equation (2020) Performed By: #### L 501.2450, L100.0100, L500.4050, L503.6005 ####[facility] [address] [place], [address] Globulin (S) [Mass/Vol] 2.2 g/dL Normal 2.2-4.2 [facility] Comment on above: Performed By: #### L 501.2450, L100.0100, L500.4050, L503.6005 ####[facility] [address] [place], [address] Glucose [Mass/Vol] 95 mg/dL Normal 70-99 [facility] Comment on above: Performed By: #### L 501.2450, L100.0100, L500.4050, L503.6005 ####[facility] [address] [place], [address] Potassium [Moles/Vol] 4.0 mmol/L Normal 3.3-5.1 [facility] Comment on above: Performed By: #### L 501.2450, L100.0100, L500.4050, L503.6005 ####[facility] [address] [place], [address] Sodium [Moles/Vol] 140 mmol/L Normal 133-145 [facility] Comment on above: Performed By: #### L 501.2450, L100.0100, L500.4050, L503.6005 ####[facility] [address] [place], [address] T PROT 6.2 g/dL Normal 5.9-8.4 [facility] Comment on above: Performed By: #### L 501.2450, L100.0100, L500.4050, L503.6005 ####[facility] [address] [place], [place], [address] Urea nitrogen [Mass/Vol] 17 mg/dL Normal 4-19 [facility] Comment on above: Performed By: #### L 501.2450, L100.0100, L500.4050, L503.6005 ####[facility] [address] [place], [place], [address] Emergency Department Summary on 01-31-2025 Emergency Department Summary Normal [facility] Eosinophil percentageOrdered By: Marleni Newman on 01-31-2025 Eosinophils/100 WBC (Bld) 2.3 % 0-5 [facility] Erythrocyte distribution wid th ratioOrdered By: Marleni Newman on 01-31-2025 Erythrocyte distribution width (RBC) [Ratio] 14.1 % 11.6-14.6 [facility] Erythrocyte distribution wid th standard deviationOrdered By: Marleni Newman on 01-31-2025 Erythrocyte distribution width (RBC) [Ratio] 45.8 fl High 35.1-43.9 [facility] Glomerular filtration rate ( GFR) estimation/1.73 sq m using serum, plasma, or whole bOrdered By: Marleni Newman on 01-31-2025 GFR/1.73 sq M.predicted among non-blacks MDRD (S/P/Bld) [Vol rate/Area] 89 mL/min/{1.73_m2} >60 [facility] Comment on above: mL/min/1.73m2 CKD-EP I Creatinine Equation (2020) Hematocrit Auto (Bld) [Volum e fraction]Ordered By: Marleni Newman on 01-31-2025 Hematocrit (Bld) [Volume fraction] 40.3 % 40-54 [facility] Hemoglobin measurementOrdere d By: Marleni Newman on 01-31-2025 Hemoglobin (Bld) [Mass/Vol] 13.5 g/dL 13.0-16.5 [facility] Immature granulocytes/100 WB C Auto (Bld)Ordered By: Marleni Newman on 01-31-2025 Immature granulocytes/100 WBC (Bld) 0.300 % 0.0-0.9 [facility] Comment on above: IG% - Immature Granu locytes (promyelocytes, myelocytes and metamyelocytes) > 1% indicates that a LEFT SHIFT is Present. Ketones Test strip Ql (U)Ord ered By: Marleni Newman on 01-31-2025 Ketones Ql (U) Negative Negative [facility] Laboratory - Chemistry and C hemistry - challengeOrdered By: Marleni Newman on 01-31-2025 AST [Catalytic activity/Vol] 22 U/L <38 [facility] Lactic Acidon 01-31-2025 Lactate [Moles/Vol] 1.4 mmol/L Normal 0.0-2.0 [facility] Comment on above: Order Comment: Y Performed By: #### L 501.2450, L100.0100, L500.4050, L503.6005 ####[facility] [address] [place], [place], [id number] Lactic acid measurementOrder ed By: Marleni Newman on 01-31-2025 Lactate [Moles/Vol] 1.4 mmol/L 0.0-2.0 [facility] Lipaseon 01-31-2025 Lipase [Catalytic activity/Vol] 55 U/L Normal 13-75 [facility] Comment on above: Result Comment: Daniella spring note:LIPASE revised reference range effective 23.New Lipase methodology. Expected to produce lower valuesthan the previous assay method.NEW Reference Range: 13 - 75 U/L Performed By: #### L 501.2450, L100.0100, L500.4050, L503.6005 ####[facility] [address] [place], [place], [address] Lipase measurementOrdered By : Marleni Newman on 01-31-2025 Lipase [Catalytic activity/Vol] 55 U/L 13-75 [facility] Comment on above: Please note:LIPASE r evised reference range effective 23. New Lipase methodology. Expected to produce lower values than the previous assay method. NEW Reference Range: 13 - 75 U/L MCV (mean corpuscular volume ) determinationOrdered By: Marleni Newman on 01-31-2025 MCV (RBC) [Entitic vol] 88.4 fL 80-94 [facility] Mean corpuscular hemoglobin (MCH) determinationOrdered By: Marleni Newman on 01-31-2025 MCH (RBC) [Entitic mass] 29.6 pg 27.0-32.0 [facility] Mean corpuscular hemoglobin concentration (MCHC) determinationOrdered By: Marleni Newman on 01-31-2025 MCHC (RBC) [Mass/Vol] 33.5 g/dL 32-36 [facility] Mean platelet volume determi nationOrdered By: Marleni Newman on 01-31-2025 Platelet mean volume (Bld) [Entitic vol] 10.4 fL 6.2-12.0 [facility] Microscopic analysis of urin e for red blood cells (RBC)Ordered By: Marleni Newman on 01-31-2025 Microscopic analysis of urine for red blood cells (RBC) 0-5 SEEN /hpf 0-5 [facility] Monocyte percentageOrdered B y: Marleni Newman on 01-31-2025 Monocytes/100 WBC (Bld) 10.7 % High 0-10 [facility] Mucus LM Ql (Urine sed)Order ed By: Marleni Newman on 01-31-2025 Mucus Ql (Urine sed) 0 SEEN /hpf [facility] Neutrophil percentageOrdered By: Marleni Newman on 01-31-2025 Neutrophils/100 WBC (Bld) 71.4 % High 47-70 [facility] Nitrite Test strip Ql (U)Ord ered By: Marleni Newman on 01-31-2025 Nitrite Ql (U) Negative Negative [facility] Nucleated red blood cell per centageOrdered By: Marleni Newman on 01-31-2025 Nucleated RBC/100 WBC (Bld) [Ratio] 0 % 0-5 [facility] Platelet countOrdered By: Martha Newman on 01-31-2025 Platelets (Bld) [#/Vol] 173 10*3/uL 150-450 [facility] Potassium measurement (mass/ volume)Ordered By: Patricia Paty on 01-31-2025 Potassium (Unsp spec) [Mass/Vol] 4.0 mmol/L 3.3-5.1 [facility] Protein Test strip Ql (U)Ord ered By: Marleni Newman on 01-31-2025 Protein Ql (U) 15 mg/dl High Negative [facility] RBC Auto (Bld) [#/Vol]Ordere d By: Marleni Newman on 01-31-2025 RBC (Bld) [#/Vol] 4.56 10*6/uL Low 4.6-6.2 [facility] Serum creatinine measurement (mass/volume)Ordered By: Marleni Newman on 01-31-2025 Creatinine [Mass/Vol] 0.94 mg/dL 0.70-1.20 [facility] Serum globulin measurementOr dered By: Marleni Newman on 01-31-2025 Globulin (S) [Mass/Vol] 2.2 g/dL 2.2-4.2 [facility] Serum glucose measurement (m ass/volume)Ordered By: Marleni Newman on 01-31-2025 Glucose [Mass/Vol] 95 mg/dL 70-99 [facility] Serum or plasma alanine oropeza otransferase (ALT) measurementOrdered By: Marleni Newman on 01-31-2025 ALT [Catalytic activity/Vol] 21 U/L <47 [facility] Serum or plasma albumin giovanny urement (mass/volume)Ordered By: Marleni Newman on 01-31-2025 Albumin [Mass/Vol] 4.0 g/dL 3.4-4.8 [facility] Serum or plasma albumin/glob ulin mass ratioOrdered By: Marleni Newman on 01-31-2025 Albumin/Globulin [Mass ratio] 1.9 {ratio} 0.9-2.4 [facility] Serum or plasma alkaline stacy sphatase measurementOrdered By: Marleni Newman on 01-31-2025 ALP [Catalytic activity/Vol] 64 U/L 40-129 [facility] Serum or plasma calcium giovanny urement (mass/volume)Ordered By: Patriciaus Newman on 01-31-2025 Calcium [Mass/Vol] 9.4 mg/dL 7.6-11.0 [facility] Serum or plasma urea nitroge n measurement (mass/volume)Ordered By: Patriciaus Newman on 01-31-2025 Urea nitrogen [Mass/Vol] 17 mg/dL 4-19 [facility] Sodium levelOrdered By: Agatha Newman on 01-31-2025 Sodium [Moles/Vol] 140 mmol/L 133-145 [facility] Squamous epithelial cells de tection in urine sediment by light microscopyOrdered By: Patriciaus Newman on 01-31-2025 Epithelial cells.squamous LM Ql (Urine sed) 0 SEEN /hpf 0-5 [facility] Total proteinOrdered By: Patricia Newman on 01-31-2025 Protein [Mass/Vol] 6.2 g/dL 5.9-8.4 [facility] Urinalysis, Completeon 01-31 RBC 0-5 SEEN Normal 0-5 [facility] Comment on above: Order Comment: CLEAN CATCH Performed By: #### L 400.0001 ####[facility] [address] [place], [address] BACTERIA 0 SEEN Normal None Seen [facility] Comment on above: Order Comment: CLEAN CATCH Performed By: #### L 400.0001 ####[facility] [address] [place], [address] EPI,SQUAMOUS 0 SEEN Normal 0-5 [facility] Comment on above: Order Comment: CLEAN CATCH Performed By: #### L 400.0001 ####[facility] [address] [place], [address] Mucus Ql (Urine sed) 0 SEEN Normal [facility] Comment on above: Order Comment: CLEAN CATCH Performed By: #### L 400.0001 ####[facility] [address] [place], [address] WBC 0 SEEN Normal 0-5 [facility] Comment on above: Order Comment: CLEAN CATCH Performed By: #### L 400.0001 ####[facility] [address] [place], [address] Urine clarityOrdered By: Patricia Newman on 01-31-2025 Clarity (U) Clear Clear [facility] Urine color determinationOrd ered By: Marleni Newman on 01-31-2025 Color (U) Yellow Yellow [facility] Urine cultureOrdered By: Patricia Newman on 01-31-2025 Bacteria identified Cx Nom (U) Negative Abnormal [facility] Urine glucose detectionOrder ed By: Marleni Newman on 01-31-2025 Glucose Ql (U) Normal mg/dl Normal [facility] Urine leukocyte esterase det ection by dipstickOrdered By: Marleni Newman on 01-31-2025 Leukocyte esterase Test strip Ql (U) Negative Negative [facility] Urine pHOrdered By: Marleni Ricardo gur on 01-31-2025 pH (U) 7.0 [pH] 5.0 - 8.0 [facility] Urine sediment bacteria coun t by microscopy (number/high power field)Ordered By: Marleni Newman on 01-31-2025 Bacteria LM.HPF (Urine sed) [#/Area] 0 /[HPF] None Seen [facility] Urine specific gravity measu rementOrdered By: Marleni Newman on 01-31-2025 Specific gravity (U) [Rel density] 1.010 1.002-1.030 [facility] Urine urobilinogen measureme ntOrdered By: Marleni Newman on 01-31-2025 Urobilinogen Ql (U) Normal mg/dl Normal [facility] White blood cell (WBC) count Ordered By: Marleni Newman on 01-31-2025 WBC (Bld) [#/Vol] 3.9 10*3/uL Low 4.4-11.0 [facility] White blood cell countOrdere d By: Marleni Newman on 01-31-2025 White blood cell count 0 SEEN /hpf 0-5 [facility] Anion gap in Serum or Plasma Ordered By: Blade Milner on 01-11-2025 Anion gap [Moles/Vol] 12 mmol/L 5-15 [facility] BUN/creatinine ratioOrdered By: Blade Milner on 01-11-2025 Urea nitrogen/Creatinine [Mass ratio] 19.3 mg/mg 10-20 [facility] Carbon dioxide, total [Moles /volume] in Central venous bloodOrdered By: Blade Milner on 01-11-2025 CO2 [Moles/Vol] 27.2 mmol/L 21.0-32.0 [facility] Chloride assayOrdered By: Zacarias Milner on 01-11-2025 Chloride [Moles/Vol] 102 mmol/L 98-108 [facility] Glomerular filtration rate ( GFR) estimation/1.73 sq m using serum, plasma, or whole bOrdered By: Blade Milner on 01-11-2025 GFR/1.73 sq M.predicted among non-blacks MDRD (S/P/Bld) [Vol rate/Area] 79 mL/min/{1.73_m2} >60 [facility] Comment on above: mL/min/1.73m2 CKD-EP I Creatinine Equation (2020) Iron measurement (mass/mass) Ordered By: Blade Milner on 01-11-2025 Iron (Unsp spec) [Mass/Mass] 42 ug/dL Low 65-175 [facility] Magnesium measurement (mass/ volume)Ordered By: Blade Milner on 01-11-2025 Magnesium (Unsp spec) [Mass/Vol] 1.7 mg/dL 1.5-2.2 [facility] Potassium measurement (mass/ volume)Ordered By: Blade Milner on 01-11-2025 Potassium (Unsp spec) [Mass/Vol] 4.1 mmol/L 3.3-5.1 [facility] Serum creatinine measurement (mass/volume)Ordered By: Blade Milner on 01-11-2025 Creatinine [Mass/Vol] 1.04 mg/dL 0.70-1.20 [facility] Serum glucose measurement (m ass/volume)Ordered By: Blade Milner on 01-11-2025 Glucose [Mass/Vol] 98 mg/dL 70-99 [facility] Serum or plasma calcium giovanny urement (mass/volume)Ordered By: Blade Milner on 01-11-2025 Calcium [Mass/Vol] 9.8 mg/dL 7.6-11.0 [facility] Serum or plasma ferritin blake surement (mass/volume)Ordered By: Blade Milner on 01-11-2025 Ferritin [Mass/Vol] 105 ng/mL 37-417 [facility] Serum or plasma urea nitroge n measurement (mass/volume)Ordered By: Blade Milner on 01-11-2025 Urea nitrogen [Mass/Vol] 20 mg/dL High 4-19 [facility] Sodium levelOrdered By: Stalin Milner on 01-11-2025 Sodium [Moles/Vol] 141 mmol/L 133-145 [facility] TSH DL <= 0.005 mIU/L QnOrde red By: Blade Milner on 01-11-2025 TSH Qn 4.930 uIU/mL High 0.300-4.200 [facility] ThyroxineOrdered By: Blade nolan on 01-11-2025 T4 [Mass/Vol] 8.3 ug/dL 4.5-12.1 [facility] ELINA + Protein Elect, Serumon 01-09-2025 Albumin [Mass/Vol] 3.7 g/dL Normal 2.9-4.4 [facility] Comment on above: Order Comment: N Performed By: #### Crystal 3130.0010, L3653.1319 ####[facility] [address] [place], [address] Albumin/Globulin [Mass ratio] 1.7 {ratio} Normal 0.7-1.7 [facility] Comment on above: Order Comment: N Performed By: #### Crystal 3130.0010, L3100.342 ####[facility] [address] [place], [address] NYNTL-5-ZEBG 0.2 g/dL Normal 0.0-0.4 [facility] Comment on above: Order Comment: N Performed By: #### L 3130.0010, L3100.3425 ####[facility] [address] [place], [address] OOTLP-5-HIJT 0.8 g/dL Normal 0.4-1.0 [facility] Comment on above: Order Comment: N Performed By: #### L 3130.0010, L3100.3425 ####[facility] [address] [place], [address] BETA GLOBULIN 0.9 g/dL Normal 0.7-1.3 [facility] Comment on above: Order Comment: N Performed By: #### L 3130.0010, L3100.3425 ####[facility] [address] [place], [address] GAMMA GLOBULIN 0.4 g/dL Normal 0.4-1.8 [facility] Comment on above: Order Comment: N Performed By: #### L 3130.0010, L3100.3425 ####[facility] [address] [place], [address] Globulin (S) [Mass/Vol] 2.2 g/dL Normal 2.2-3.9 [facility] Comment on above: Order Comment: N Performed By: #### L 3130.0010, L3100.3425 ####[facility] [address] [place], [address] ELINA RESULT,S Comment Abnormal . [facility] Comment on above: Order Comment: N Result Comment: Immu nofixation shows IgG monoclonal protein with kappalight chain specificity. PLEASE NOTE: Samples from patients receiving DARZALEX(R)(daratumumab) or SARCLISA(R)(isatuximab-psychiatric) treatmentcan appear as an "IgG kappa" and mask a complete response(CR). If this patient is receiving these therapies, thisIFE assay interference can be removed by ordering testnumber [id number]-"Immunofixation, Daratumumab-Specific,Serum" or [id number]-"Immunofixation, Isatuximab-Specific,Serum" and submitting a new sample for testing or bycalling the lab to add this test to the current sample. Performed By: #### L 3130.0010, L3100.3425 ####[facility] [address] [place], [address] IMMUNOGLOB A QN 20 mg/dL Low 61-437 [facility] Comment on above: Order Comment: N Result Comment: Resu lt confirmed on concentration. Performed By: #### L 3130.0010, L3100.3425 ####[facility] [address] [place], [address] IMMUNOGLOB G QN 495 mg/dL Low 603-1613 [facility] Comment on above: Order Comment: N Performed By: #### L 3130.0010, L3100.3425 ####[facility] [address] [place], [address] IMMUNOGLOB M QN 15 mg/dL Low 20-172 [facility] Comment on above: Order Comment: N Result Comment: Resu lt confirmed on concentration. Performed By: #### L 3130.0010, L3100.3425 ####[facility] [address] [place], [address] M-Raúl 0.1 g/dL Abnormal Not Observed [facility] Comment on above: Order Comment: N Performed By: #### L 3130.0010, L3100.3425 ####[facility] [address] [place], [address] NOTE: Comment Normal . [facility] Comment on above: Order Comment: N Result Comment: Prot ein electrophoresis scan will follow via computer,mail, or forging die sinker delivery. Performed By: #### L 3130.0010, L3100.3425 ####[facility] [address] [place], [address] Protein [Mass/Vol] 5.9 g/dL Low 6.0-8.5 [facility] Comment on above: Order Comment: N Performed By: #### L 3130.0010, L3100.3425 ####[facility] [address] [place], [place], [id number] [place] Lambda Light Chainson 01-09-2025 FR KAPPA LT CHN 5.4 mg/L Normal 3.3-19.4 [facility] Comment on above: Performed By: #### L 3130.0010, L3100.9649 ####[facility] [address] [place], [place], [address] FR LAMBDA LT CH 2.7 mg/L Abnormal 5.7-26.3 [facility] Comment on above: Performed By: #### L 3130.0010, L3541.3426 ####[facility] [address] [place], [place], [address] KAPPA/LAMBDA % 2.00 Abnormal 0.26-1.65 [facility] Comment on above: Result Comment: Perf ormed at: - [facility] [place] [id number] Director: Micky Arreola PhD, Phone: [phone] Performed By: #### L 3130.0010, L8613.3181 ####[facility] [address] [place], [place], [address] Abdomen Single Viewon 2024 Abdomen Single View Normal [facility] Absolute lymphocyte countOrd ered By: Jenn Perez on 01-04-2025 Lymphocytes Auto (Unsp spec) [#/Vol] 0.53 10*3/uL Low 0.83-4.51 [facility] Absolute neutrophil countOrd ered By: Jenn Perez on 01-04-2025 Neutrophils (Bld) [#/Vol] 3.9 10*3/uL 2.0-7.7 [facility] Albumin Elph [Mass/Vol]Order ed By: Jenn Perez on 01-04-2025 Albumin [Mass/Vol] 3.7 g/dL 2.9-4.4 [facility] Anion gap in Serum or Plasma Ordered By: Jenn Perez on 01-04-2025 Anion gap [Moles/Vol] 11 mmol/L 5-15 [facility] Automated lymphocyte count a s percentage of total leukocytesOrdered By: [facility] Kingtez on 01-04-2025 Lymphocytes/100 WBC Auto (Unsp spec) 10.3 % Low 19-41 [facility] BUN/creatinine ratioOrdered By: [facility] Centerdaaynna Kingtez on 01-04-2025 Urea nitrogen/Creatinine [Mass ratio] 18.3 mg/mg 10-20 [facility] Basophil percentageOrdered B y: Jenn Chris on 01-04-2025 Basophils/100 WBC (Bld) 0.6 % 0-1 [facility] Bilirubin, totalOrdered By: [facility] Centerdayanna Chris on 01-04-2025 Bilirubin [Mass/Vol] 0.35 mg/dL 0.00-1.30 [facility] CBC W/Diff, Automatedon 12-26-2024 Absolute Lymph 0.53 X10 3/uL Low 0.83-4.51 [facility] Comment on above: Performed By: #### L 500.4050, L100.0100 ####[facility] [address] [place], [address] Absolute Neut 3.9 X10 3/uL Normal 2.0-7.7 [facility] Comment on above: Performed By: #### L 500.4050, L100.0100 ####[facility] [address] [place], [address] Basophils/100 WBC (Bld) 0.6 % Normal 0-1 [facility] Comment on above: Performed By: #### L 500.4050, L100.0100 ####[facility] [address] [place], [address] Eosinophils/100 WBC (Bld) 2.3 % Normal 0-5 [facility] Comment on above: Performed By: #### L 500.4050, L100.0100 ####[facility] [address] [place], [address] Erythrocyte distribution width (RBC) [Ratio] 14.6 % Normal 11.6-14.6 [facility] Comment on above: Performed By: #### L 500.4050, L100.0100 ####[facility] [address] [place], [address] Hematocrit (Bld) [Volume fraction] 39.8 % Low 40-54 [facility] Comment on above: Performed By: #### L 500.4050, L100.0100 ####[facility] [address] [place], [address] Hemoglobin (Bld) [Mass/Vol] 13.0 g/dL Normal 13.0-16.5 [facility] Comment on above: Performed By: #### L 500.4050, L100.0100 ####[facility] [address] [place], [address] IG% 0.200 Normal 0.0-0.9 [facility] Comment on above: Result Comment: IG% - Immature Granulocytes (promyelocytes, myelocytes andmetamyelocytes) > 1% indicates that a LEFT SHIFT is Present. Performed By: #### L 500.4050, L100.0100 ####[facility] [address] [place], [address] Lymphocytes/100 WBC (Bld) 10.3 % Low 19-41 [facility] Comment on above: Performed By: #### L 500.4050, L100.0100 ####[facility] [address] [place], [address] MCH (RBC) [Entitic mass] 29.3 pg Normal 27.0-32.0 [facility] Comment on above: Performed By: #### L 500.4050, L100.0100 ####[facility] [address] [place], [address] MCHC (RBC) [Mass/Vol] 32.7 g/dL Normal 32-36 [facility] Comment on above: Performed By: #### L 500.4050, L100.0100 ####[facility] [address] [place], [address] MCV (RBC) [Entitic vol] 89.6 fL Normal 80-94 [facility] Comment on above: Performed By: #### L 500.4050, L100.0100 ####[facility] [address] [place], [address] Monocytes/100 WBC (Bld) 10.7 % High 0-10 [facility] Comment on above: Performed By: #### L 500.4050, L100.0100 ####[facility] [address] [place], [address] Neutrophils/100 WBC (Bld) 75.9 % High 47-70 [facility] Comment on above: Performed By: #### L 500.4050, L100.0100 ####[facility] [address] [place], [address] Nucleated RBC (Bld) [#/Vol] 0 10*3/uL Normal 0-5 [facility] Comment on above: Performed By: #### L 500.4050, L100.0100 ####[facility] [address] [place], [address] Platelet mean volume (Bld) [Entitic vol] 10.7 fL Normal 6.2-12.0 [facility] Comment on above: Performed By: #### L 500.4050, L100.0100 ####[facility] [address] [place], [address] Platelets (Bld) [#/Vol] 169 10*3/uL Normal 150-450 [facility] Comment on above: Performed By: #### L 500.4050, L100.0100 ####[facility] [address] [place], [address] RBC (Bld) [#/Vol] 4.44 10*6/uL Low 4.6-6.2 [facility] Comment on above: Performed By: #### L 500.4050, L100.0100 ####[facility] [address] [place], [address] RDW SD 48.1 fl High 35.1-43.9 [facility] Comment on above: Performed By: #### L 500.4050, L100.0100 ####[facility] [address] [place], [address] WBC (Bld) [#/Vol] 5.1 10*3/uL Normal 4.4-11.0 [facility] Comment on above: Performed By: #### L 500.4050, L100.0100 ####[facility] [address] [place], [address] Carbon dioxide, total [Moles /volume] in Central venous bloodOrdered By: Jenn Perez on 01-04-2025 CO2 [Moles/Vol] 26.5 mmol/L 21.0-32.0 [facility] Chloride assayOrdered By: Lorene Perez on 01-04-2025 Chloride [Moles/Vol] 100 mmol/L 98-108 [facility] Comprehensive Metabolic Prof ilon 01-04-2025 Albumin [Mass/Vol] 4.2 g/dL Normal 3.4-4.8 [facility] Comment on above: Performed By: #### L 500.4050, L100.0100 ####[facility] [address] [place], [address] Albumin/Globulin [Mass ratio] 2.1 {ratio} Normal 0.9-2.4 [facility] Comment on above: Performed By: #### L 500.4050, L100.0100 ####[facility] [address] [place], [address] ALK PHOS 59 U/L Normal 40-129 [facility] Comment on above: Performed By: #### L 500.4050, L100.0100 ####[facility] [address] [place], [address] ALT [Catalytic activity/Vol] 16 U/L Normal <=46 [facility] Comment on above: Performed By: #### L 500.4050, L100.0100 ####[facility] [address] [place], [address] AST [Catalytic activity/Vol] 16 U/L Normal <=37 [facility] Comment on above: Performed By: #### L 500.4050, L100.0100 ####[facility] [address] [place], [address] Bilirubin [Mass/Vol] 0.35 mg/dL Normal 0.00-1.30 [facility] Comment on above: Performed By: #### L 500.4050, L100.0100 ####[facility] [address] [place], [address] BUN/CRE 18.3 RATIO Normal 10-20 [facility] Comment on above: Performed By: #### L 500.4050, L100.0100 ####[facility] [address] [place], [address] Calcium [Mass/Vol] 9.6 mg/dL Normal 7.6-11.0 [facility] Comment on above: Performed By: #### L 500.4050, L100.0100 ####[facility] [address] [place], [address] Chloride [Moles/Vol] 100 mmol/L Normal 98-108 [facility] Comment on above: Performed By: #### L 500.4050, L100.0100 ####[facility] [address] [place], [address] CO2 [Moles/Vol] 26.5 mmol/L Normal 21.0-32.0 [facility] Comment on above: Performed By: #### L 500.4050, L100.0100 ####[facility] [address] [place], [address] Creatinine [Mass/Vol] 1.12 mg/dL Normal 0.70-1.20 [facility] Comment on above: Performed By: #### L 500.4050, L100.0100 ####[facility] [address] [place], [address] ECRCL 64.94 ml/min Normal 50-250 [facility] Comment on above: Performed By: #### L 500.4050, L100.0100 ####[facility] [address] [place], [address] GAP 11 Normal 5-15 [facility] Comment on above: Performed By: #### L 500.4050, L100.0100 ####[facility] [address] [place], [address] GFR/1.73 sq M.predicted among non-blacks MDRD (S/P/Bld) [Vol rate/Area] 72 mL/min/{1.73_m2} Normal >60 [facility] Comment on above: Result Comment: mL/m in/1.73m2 CKD-EPI Creatinine Equation (2020) Performed By: #### L 500.4050, L100.0100 ####[facility] [address] [place], [address] Globulin (S) [Mass/Vol] 2.0 g/dL Low 2.2-4.2 [facility] Comment on above: Performed By: #### L 500.4050, L100.0100 ####[facility] [address] [place], [address] Glucose [Mass/Vol] 116 mg/dL High 70-99 [facility] Comment on above: Performed By: #### L 500.4050, L100.0100 ####[facility] [address] [place], [address] Potassium [Moles/Vol] 4.2 mmol/L Normal 3.3-5.1 [facility] Comment on above: Performed By: #### L 500.4050, L100.0100 ####[facility] [address] [place], [address] Sodium [Moles/Vol] 138 mmol/L Normal 133-145 [facility] Comment on above: Performed By: #### L 500.4050, L100.0100 ####[facility] [address] [place], [address] T PROT 6.2 g/dL Normal 5.9-8.4 [facility] Comment on above: Performed By: #### L 500.4050, L100.0100 ####[facility] [address] [place], [address] Urea nitrogen [Mass/Vol] 21 mg/dL High 4-19 [facility] Comment on above: Performed By: #### L 500.4050, L100.0100 ####[facility] [address] [place], [address] Eosinophil percentageOrdered By: Jenn Perez on 01-04-2025 Eosinophils/100 WBC (Bld) 2.3 % 0-5 [facility] Erythrocyte distribution wid th (RBC) [Ratio]Ordered By: Jenn Perez on 01-04-2025 Erythrocyte distribution width (RBC) [Entitic vol] 48.1 fL High 35.1-43.9 [facility] Erythrocyte distribution wid th ratioOrdered By: Jenn Perez on 01-04-2025 Erythrocyte distribution width (RBC) [Ratio] 14.6 % 11.6-14.6 [facility] Erythrocyte distribution wid th standard deviationOrdered By: Jenn Perez on 01-04-2025 Erythrocyte distribution width (RBC) [Ratio] 48.1 fl High 35.1-43.9 [facility] Estimation of creatinine gavin aranceOrdered By: Jenn Perez on 01-04-2025 Estimated Creatinine Clearance Calc 64.94 ml/min 50-250 [facility] GFR/1.73 sq M.predicted jesus g non-blacks MDRD (S/P/Bld) [Vol rate/Area]Ordered By: Jenn Perez on 01-04-2025 Estimated GFR (MDRD) Non-Af Amer 72 >60 [facility] Comment on above: mL/min/1.73m2 CKD-EP I Creatinine Equation (2020) Glomerular filtration rate ( GFR) estimation/1.73 sq m using serum, plasma, or whole bOrdered By: Jenn Perez on 01-04-2025 GFR/1.73 sq M.predicted among non-blacks MDRD (S/P/Bld) [Vol rate/Area] 72 mL/min/{1.73_m2} >60 [facility] Comment on above: mL/min/1.73m2 CKD-EP I Creatinine Equation (2020) Hematocrit Auto (Bld) [Volum e fraction]Ordered By: Jenn Perez on 01-04-2025 Hematocrit (Bld) [Volume fraction] 39.8 % Low 40-54 [facility] Hemoglobin measurementOrdere d By: Jenn Perez on 01-04-2025 Hemoglobin (Bld) [Mass/Vol] 13.0 g/dL 13.0-16.5 [facility] Immature granulocytes/100 WB C Auto (Bld)Ordered By: Jenn Perez on 01-04-2025 Immature granulocytes/100 WBC (Bld) 0.200 % 0.0-0.9 [facility] Comment on above: IG% - Immature Granu locytes (promyelocytes, myelocytes and metamyelocytes) > 1% indicates that a LEFT SHIFT is Present. Interpretation of serum or p lasma protein pattern by immunofixation (narrative resultOrdered By: Jenn Perez on 01-04-2025 Protein Fractions Immunofixation Johnny [Interp] 0.1 g/dL High Not Observed [facility] Laboratory - Chemistry and C hemistry - challengeOrdered By: Jenn Perez on 01-04-2025 AST [Catalytic activity/Vol] 16 U/L <38 [facility] Lymphocytes Auto (Unsp spec) [#/Vol]Ordered By: Jenn Perez on 01-04-2025 Lymphocytes (Bld) [#/Vol] 0.53 10*3/uL Low 0.83-4.51 [facility] Lymphocytes/100 WBC Auto (Un sp spec)Ordered By: Jenn Perez on 01-04-2025 Lymphocytes/100 WBC (Bld) 10.3 % Low 19-41 [facility] MCV (mean corpuscular volume ) determinationOrdered By: Jenn Perez on 01-04-2025 MCV (RBC) [Entitic vol] 89.6 fL 80-94 [facility] Mean corpuscular hemoglobin (MCH) determinationOrdered By: Jenn Perez on 01-04-2025 MCH (RBC) [Entitic mass] 29.3 pg 27.0-32.0 [facility] Mean corpuscular hemoglobin concentration (MCHC) determinationOrdered By: Jenn Perez on 01-04-2025 MCHC (RBC) [Mass/Vol] 32.7 g/dL 32-36 [facility] Mean platelet volume determi nationOrdered By: Jenn Perez on 01-04-2025 Platelet mean volume (Bld) [Entitic vol] 10.7 fL 6.2-12.0 [facility] Monocyte percentageOrdered B y: Jenn Perez on 01-04-2025 Monocytes/100 WBC (Bld) 10.7 % High 0-10 [facility] Neutrophil percentageOrdered By: Jenn Perez on 01-04-2025 Neutrophils/100 WBC (Bld) 75.9 % High 47-70 [facility] No Panel InformationOrdered By: Jenn Perez on 01-04-2025 Addendum Document Comment . [facility] Comment on above: Protein electrophore sis scan will follow via computer,mail, or forging die sinker delivery. Nucleated red blood cell per centageOrdered By: Jenn Perez on 01-04-2025 Nucleated RBC/100 WBC (Bld) [Ratio] 0 % 0-5 [facility] Oncology Visit Reporton 12-26 Oncology Visit Report Normal [facility] Platelet countOrdered By: Lorene Perez on 01-04-2025 Platelets (Bld) [#/Vol] 169 10*3/uL 150-450 [facility] Potassium (Unsp spec) [Mass/ Vol]Ordered By: Jenn Perez on 01-04-2025 Potassium [Moles/Vol] 4.2 mmol/L 3.3-5.1 [facility] Potassium measurement (mass/ volume)Ordered By: Jenn Perez on 01-04-2025 Potassium (Unsp spec) [Mass/Vol] 4.2 mmol/L 3.3-5.1 [facility] RBC Auto (Bld) [#/Vol]Ordere d By: Jenn Perez on 01-04-2025 RBC (Bld) [#/Vol] 4.44 10*6/uL Low 4.6-6.2 [facility] Serum creatinine measurement (mass/volume)Ordered By: Jenn Perez on 01-04-2025 Creatinine [Mass/Vol] 1.12 mg/dL 0.70-1.20 [facility] Serum globulin measurementOr dered By: Jenn Perez on 01-04-2025 Globulin (S) [Mass/Vol] 2.0 g/dL Low 2.2-4.2 [facility] Serum globulin measurement ( mass/volume)Ordered By: Jenn Perez on 01-04-2025 Globulin (S) [Mass/Vol] 2.2 g/dL 2.2-3.9 [facility] Serum glucose measurement (m ass/volume)Ordered By: Jenn Perez on 01-04-2025 Glucose [Mass/Vol] 116 mg/dL High 70-99 [facility] Serum immunoglobulin kappa l ight chains/immunoglobulin lambda light chains mass ratioOrdered By: Jenn Perez on 01-04-2025 Immunoglobulin light chains.kappa/Immunoglobu dav light chains.lambda (S) [Mass ratio] 2.00 High 0.26-1.65 [facility] Comment on above: Performed at: - [address] [id number] Director: Micky Arreola PhD, Phone: [phone] Serum or plasma IgA measurem ent (mass/volume)Ordered By: Jenn Perez on 01-04-2025 IgA [Mass/Vol] 20 mg/dL Low 61-437 [facility] Comment on above: Result confirmed on concentration. Serum or plasma IgG measurem ent (mass/volume)Ordered By: Jenn Perez on 01-04-2025 IgG [Mass/Vol] 495 mg/dL Low 603-1613 [facility] Serum or plasma alanine oropeza otransferase (ALT) measurementOrdered By: Jenn Perez on 01-04-2025 ALT [Catalytic activity/Vol] 16 U/L <47 [facility] Serum or plasma albumin giovanny urement (mass/volume)Ordered By: Jenn Perez on 01-04-2025 Albumin [Mass/Vol] 4.2 g/dL 3.4-4.8 [facility] Serum or plasma albumin/glob ulin mass ratioOrdered By: Jenn Perez on 01-04-2025 Albumin/Globulin [Mass ratio] 2.1 {ratio} 0.9-2.4 [facility] Serum or plasma alkaline stacy sphatase measurementOrdered By: Jenn Perez on 01-04-2025 ALP [Catalytic activity/Vol] 59 U/L 40-129 [facility] Serum or plasma alpha 1 glob ulin measurement by electrophoresis (mass/volume)Ordered By: Jenn Perez on 01-04-2025 Alpha 1 globulin Elph [Mass/Vol] 0.2 g/dL 0.0-0.4 [facility] Alpha 1 globulin Elph [Mass/Vol] 0.8 g/dL 0.4-1.0 [facility] Serum or plasma beta globuli n measurement by electrophoresis (mass/volume)Ordered By: Jenn Perez on 01-04-2025 Beta globulin Elph [Mass/Vol] 0.9 g/dL 0.7-1.3 [facility] Serum or plasma calcium giovanny urement (mass/volume)Ordered By: Jenn Perez on 01-04-2025 Calcium [Mass/Vol] 9.6 mg/dL 7.6-11.0 [facility] Serum or plasma gamma globul in measurement by electrophoresis (mass/volume)Ordered By: Jenn Perez on 01-04-2025 Gamma globulin Elph [Mass/Vol] 0.4 g/dL 0.4-1.8 [facility] Serum or plasma immunoelectr ophoresis interpretation (nominal result)Ordered By: Jenn Perez on 01-04-2025 Interpretation IEP [Interp] Comment High . [facility] Comment on above: Immunofixation shows IgG monoclonal protein with kappalight chain specificity. PLEASE NOTE: Samples from patients receiving DARZALEX(R)(daratumumab) or SARCLISA(R)(isatuximab-irfc) treatmentcan appear as an "IgG kappa" and mask a complete response(CR). If this patient is receiving these therapies, thisIFE assay interference can be removed by ordering testnumber [id number]-"Immunofixation, Daratumumab-Specific,Serum" or [id number]-"Immunofixation, Isatuximab-Specific,Serum" and submitting a new sample for testing or bycalling the lab to add this test to the current sample. Serum or plasma immunoglobul in kappa light chains measurement (mass/volume)Ordered By: Jenn Perez on 01-04-2025 Immunoglobulin light chains.kappa [Mass/Vol] 5.4 mg/L 3.3-19.4 [facility] Serum or plasma protein giovanny urement (mass/volume)Ordered By: Jenn Perez on 01-04-2025 Protein [Mass/Vol] 5.9 g/dL Low 6.0-8.5 [facility] Serum or plasma urea nitroge n measurement (mass/volume)Ordered By: Jenn Perez on 01-04-2025 Urea nitrogen [Mass/Vol] 21 mg/dL High 4-19 [facility] Sodium levelOrdered By: Georgina Perez on 01-04-2025 Sodium [Moles/Vol] 138 mmol/L 133-145 [facility] Total proteinOrdered By: Lam Perez on 04-10-2025 Protein [Mass/Vol] 6.2 g/dL 5.9-8.4 [facility] White blood cell (WBC) count Ordered By: Jenn Perez on 01-04-2025 WBC (Bld) [#/Vol] 5.1 10*3/uL 4.4-11.0 [facility] CBC W/Diff, Automatedon 04-0 Absolute Neut Normal 2.0-7.7 [facility] Comment on above: Result Comment: OM C ANCEL REQUEST Performed By: #### L 100.0100, L500.4050 ####[facility] [address] [place], [address] HCT Normal 40-54 [facility] Comment on above: Result Comment: OM C ANCEL REQUEST Performed By: #### L 100.0100, L500.4050 ####[facility] [address] [place], [address] HGB Normal 13.0-16.5 [facility] Comment on above: Result Comment: OM C ANCEL REQUEST Performed By: #### L 100.0100, L500.4050 ####[facility] [address] [place], [address] MCH Normal 27.0-32.0 [facility] Comment on above: Result Comment: OM C ANCEL REQUEST Performed By: #### L 100.0100, L500.4050 ####[facility] [address] [place], [address] MCHC Normal 32-36 [facility] Comment on above: Result Comment: OM C ANCEL REQUEST Performed By: #### L 100.0100, L500.4050 ####[facility] [address] [place], [address] MCV Normal 80-94 [facility] Comment on above: Result Comment: OM C ANCEL REQUEST Performed By: #### L 100.0100, L500.4050 ####[facility] [address] [place], [address] NEUT% Normal 47-70 [facility] Comment on above: Result Comment: OM C ANCEL REQUEST Performed By: #### L 100.0100, L500.4050 ####[facility] [address] [place], [address] PLT Normal 150-450 [facility] Comment on above: Result Comment: OM C ANCEL REQUEST Performed By: #### L 100.0100, L500.4050 ####[facility] [address] [place], [address] RBC Normal 4.6-6.2 [facility] Comment on above: Result Comment: OM C ANCEL REQUEST Performed By: #### L 100.0100, L500.4050 ####[facility] [address] [place], [address] RDW CV Normal 11.6-14.6 [facility] Comment on above: Result Comment: OM C ANCEL REQUEST Performed By: #### L 100.0100, L500.4050 ####[facility] [address] [place], [address] RDW SD Normal 35.1-43.9 [facility] Comment on above: Result Comment: OM C ANCEL REQUEST Performed By: #### L 100.0100, L500.4050 ####[facility] [address] [place], [address] WBC Normal 4.4-11.0 [facility] Comment on above: Result Comment: OM C ANCEL REQUEST Performed By: #### L 100.0100, L500.4050 ####[facility] [address] [place], [address] Comprehensive Metabolic Prof ilon 12-27-2024 ALB Normal 3.4-4.8 [facility] Comment on above: Result Comment: REQU EST TO CANCEL ENTERED Performed By: #### L 100.0100, L500.4050 ####[facility] [address] [place], [address] ALK PHOS Normal 40-129 [facility] Comment on above: Result Comment: REQU EST TO CANCEL ENTERED Performed By: #### L 100.0100, L500.4050 ####[facility] [address] [place], [address] ALT Normal <=46 [facility] Comment on above: Result Comment: REQU EST TO CANCEL ENTERED Performed By: #### L 100.0100, L500.4050 ####[facility] [address] [place], [address] AST Normal <=37 [facility] Comment on above: Result Comment: REQU EST TO CANCEL ENTERED Performed By: #### L 100.0100, L500.4050 ####[facility] [address] [place], [address] BUN Normal 4-19 [facility] Comment on above: Result Comment: REQU EST TO CANCEL ENTERED Performed By: #### L 100.0100, L500.4050 ####[facility] [address] [place], [address] BUN/CRE Normal 10-20 [facility] Comment on above: Result Comment: REQU EST TO CANCEL ENTERED Performed By: #### L 100.0100, L500.4050 ####[facility] [address] [place], [address] Calcium Normal 7.6-11.0 [facility] Comment on above: Result Comment: REQU EST TO CANCEL ENTERED Performed By: #### L 100.0100, L500.4050 ####[facility] [address] [place], [address] CL Normal 98-108 [facility] Comment on above: Result Comment: REQU EST TO CANCEL ENTERED Performed By: #### L 100.0100, L500.4050 ####[facility] [address] [place], [address] CO2 Normal 21.0-32.0 [facility] Comment on above: Result Comment: REQU EST TO CANCEL ENTERED Performed By: #### L 100.0100, L500.4050 ####[facility] [address] [place], [address] CREAT,SERUM Normal 0.70-1.20 [facility] Comment on above: Result Comment: REQU EST TO CANCEL ENTERED Performed By: #### L 100.0100, L500.4050 ####[facility] [address] [place], [address] eGFR Normal >60 [facility] Comment on above: Result Comment: REQU EST TO CANCEL ENTERED Performed By: #### L 100.0100, L500.4050 ####[facility] [address] [place], [address] GAP Normal 5-15 [facility] Comment on above: Result Comment: REQU EST TO CANCEL ENTERED Performed By: #### L 100.0100, L500.4050 ####[facility] [address] [place], [address] GLU Normal 70-99 [facility] Comment on above: Result Comment: REQU EST TO CANCEL ENTERED Performed By: #### L 100.0100, L500.4050 ####[facility] [address] [place], [address] Potassium Normal 3.3-5.1 [facility] Comment on above: Result Comment: REQU EST TO CANCEL ENTERED Performed By: #### L 100.0100, L500.4050 ####[facility] [address] [place], [address] T BILI Normal 0.00-1.30 [facility] Comment on above: Result Comment: REQU EST TO CANCEL ENTERED Performed By: #### L 100.0100, L500.4050 ####[facility] [address] [place], [address] T PROT Normal 5.9-8.4 [facility] Comment on above: Result Comment: REQU EST TO CANCEL ENTERED Performed By: #### L 100.0100, L500.4050 ####[facility] [address] [place], [address] Comprehensive Metabolic Profil Normal 133-145 [facility] Comment on above: Result Comment: REQU EST TO CANCEL ENTERED Performed By: #### L 100.0100, L500.4050 ####[facility] [address] [place], [address] ELINA + Protein Elect, Serumon 12-12-2024 Albumin [Mass/Vol] 3.5 g/dL Normal 2.9-4.4 [facility] Comment on above: Order Comment: N Performed By: #### L 3130.0010, L100.0100, L500.4050, L3100.3425 ####[facility] [address] [place], [address] Albumin/Globulin [Mass ratio] 1.5 {ratio} Normal 0.7-1.7 [facility] Comment on above: Order Comment: N Performed By: #### L 3130.0010, L100.0100, L500.4050, L3100.3425 ####[facility] [address] [place], [address] AQYFW-2-FTSM 0.2 g/dL Normal 0.0-0.4 [facility] Comment on above: Order Comment: N Performed By: #### L 3130.0010, L100.0100, L500.4050, L3100.3425 ####[facility] [address] [place], [address] ITPFK-4-HOKQ 0.9 g/dL Normal 0.4-1.0 [facility] Comment on above: Order Comment: N Performed By: #### L 3130.0010, L100.0100, L500.4050, L3100.3425 ####[facility] [address] [place], [address] BETA GLOBULIN 0.9 g/dL Normal 0.7-1.3 [facility] Comment on above: Order Comment: N Performed By: #### L 3130.0010, L100.0100, L500.4050, L3100.3425 ####[facility] [address] [place], [address] GAMMA GLOBULIN 0.4 g/dL Normal 0.4-1.8 [facility] Comment on above: Order Comment: N Performed By: #### L 3130.0010, L100.0100, L500.4050, L3100.3425 ####[facility] [address] [place], [address] Globulin (S) [Mass/Vol] 2.4 g/dL Normal 2.2-3.9 [facility] Comment on above: Order Comment: N Performed By: #### L 3130.0010, L100.0100, L500.4050, L3100.3425 ####[facility] [address] [place], [address] ELINA RESULT,S Comment Abnormal . [facility] Comment on above: Order Comment: N Result Comment: Immu nofixation shows IgG monoclonal protein with kappalight chain specificity. PLEASE NOTE: Samples from patients receiving DARZALEX(R)(daratumumab) or SARCLISA(R)(isatuximab-irfc) treatmentcan appear as an "IgG kappa" and mask a complete response(CR). If this patient is receiving these therapies, thisIFE assay interference can be removed by ordering testnumber [id number]-"Immunofixation, Daratumumab-Specific,Serum" or [id number]-"Immunofixation, Isatuximab-Specific,Serum" and submitting a new sample for testing or bycalling the lab to add this test to the current sample. Performed By: #### L 3130.0010, L100.0100, L500.4050, L3100.3425 ####[facility] [address] [place], [address] IMMUNOGLOB A QN 21 mg/dL Low 61-437 [facility] Comment on above: Order Comment: N Result Comment: Resu lt confirmed on concentration. Performed By: #### L 3130.0010, L100.0100, L500.4050, L3100.3425 ####[facility] [address] [place], [address] IMMUNOGLOB G QN 441 mg/dL Low 603-1613 [facility] Comment on above: Order Comment: N Performed By: #### L 3130.0010, L100.0100, L500.4050, L3100.3425 ####[facility] [address] [place], [address] IMMUNOGLOB M QN 15 mg/dL Low 20-172 [facility] Comment on above: Order Comment: N Result Comment: Resu lt confirmed on concentration. Performed By: #### L 3130.0010, L100.0100, L500.4050, L3100.3425 ####[facility] [address] [place], [address] M-Raúl Comment: Normal Not Observed [facility] Comment on above: Order Comment: N Result Comment: Due to the small quantity of monoclonal protein, unable toquantitate the M-spike. Performed By: #### L 3130.0010, L100.0100, L500.4050, L3100.3425 ####[facility] [address] [place], [address] NOTE: Comment Normal . [facility] Comment on above: Order Comment: N Result Comment: Prot ein electrophoresis scan will follow via computer,mail, or forging die sinker delivery. Performed By: #### L 3130.0010, L100.0100, L500.4050, L3100.3425 ####[facility] [address] [place], [place], [id number] Protein [Mass/Vol] 5.9 g/dL Low 6.0-8.5 [facility] Comment on above: Order Comment: N Performed By: #### L 3130.0010, L100.0100, L500.4050, L3100.3425 ####[facility] [address] [place], [place], [id number] [place] Lambda Light Chainson 12-12-2024 FR KAPPA LT CHN 5.7 mg/L Normal 3.3-19.4 [facility] Comment on above: Performed By: #### L 3130.0010, L100.0100, L500.4050, L3100.3425 ####[facility] [address] [place], [place], [address] FR LAMBDA LT CH 2.7 mg/L Abnormal 5.7-26.3 [facility] Comment on above: Performed By: #### L 3130.0010, L100.0100, L500.4050, L3100.3425 ####[facility] [address] [place], [address] KAPPA/LAMBDA % 2.11 Abnormal 0.26-1.65 [facility] Comment on above: Result Comment: Perf ormed at: - [facility] [address] [id number] Director: Micky Arreola PhD, Phone: [phone] Performed By: #### L 3130.0010, L100.0100, L500.4050, L3100.3425 ####[facility] [address] [place], [address] Absolute lymphocyte countOrd ered By: Blade Milner on 12-11-2024 Lymphocytes Auto (Unsp spec) [#/Vol] 0.55 10*3/uL Low 0.83-4.51 [facility] Absolute neutrophil countOrd ered By: Blade Milner on 12-11-2024 Neutrophils (Bld) [#/Vol] 3.2 10*3/uL 2.0-7.7 [facility] Anion gap in Serum or Plasma Ordered By: Blade Milner on 12-11-2024 Anion gap [Moles/Vol] 10 mmol/L 5-15 [facility] Automated lymphocyte count a s percentage of total leukocytesOrdered By: Blade Milner on 12-11-2024 Lymphocytes/100 WBC Auto (Unsp spec) 12.6 % Low 19-41 [facility] BUN/creatinine ratioOrdered By: Blade Milner on 12-11-2024 Urea nitrogen/Creatinine [Mass ratio] 17.7 mg/mg 10-20 [facility] Basophil percentageOrdered B y: Blade Milner on 12-11-2024 Basophils/100 WBC (Bld) 0.7 % 0-1 [facility] Bilirubin, totalOrdered By: Blade Milner on 12-11-2024 Bilirubin [Mass/Vol] 0.29 mg/dL 0.00-1.30 [facility] Carbon dioxide, total [Moles /volume] in Central venous bloodOrdered By: Blade Milner on 12-11-2024 CO2 [Moles/Vol] 27.1 mmol/L 21.0-32.0 [facility] Chloride assayOrdered By: Zacarias Milner on 12-11-2024 Chloride [Moles/Vol] 102 mmol/L 98-108 [facility] Eosinophil percentageOrdered By: Blade Milner on 12-11-2024 Eosinophils/100 WBC (Bld) 2.5 % 0-5 [facility] Erythrocyte distribution wid th ratioOrdered By: Blade Milner on 12-11-2024 Erythrocyte distribution width (RBC) [Ratio] 15.1 % High 11.6-14.6 [facility] Erythrocyte distribution wid th standard deviationOrdered By: Blade Milner on 12-11-2024 Erythrocyte distribution width (RBC) [Entitic vol] 49.0 fL High 35.1-43.9 [facility] Erythrocyte distribution width (RBC) [Ratio] 49.0 fl High 35.1-43.9 [facility] GFR/1.73 sq M.predicted jesus g non-blacks MDRD (S/P/Bld) [Vol rate/Area]Ordered By: Blade Milner on 12-11-2024 Estimated GFR (MDRD) Non-Af Amer 82 >60 [facility] Comment on above: mL/min/1.73m2 CKD-EP I Creatinine Equation (2020) Glomerular filtration rate ( GFR) estimation/1.73 sq m using serum, plasma, or whole bOrdered By: Blade Milner on 12-11-2024 GFR/1.73 sq M.predicted among non-blacks MDRD (S/P/Bld) [Vol rate/Area] 82 mL/min/{1.73_m2} >60 [facility] Comment on above: mL/min/1.73m2 CKD-EP I Creatinine Equation (2020) Hematocrit Auto (Bld) [Volum e fraction]Ordered By: Blade Milner on 12-11-2024 Hematocrit (Bld) [Volume fraction] 41.9 % 40-54 [facility] Hemoglobin measurementOrdere d By: Blade Milner on 12-11-2024 Hemoglobin (Bld) [Mass/Vol] 13.6 g/dL 13.0-16.5 [facility] Immature granulocytes/100 WB C Auto (Bld)Ordered By: Blade Milner on 12-11-2024 Immature granulocytes/100 WBC (Bld) 0.500 % 0.0-0.9 [facility] Comment on above: IG% - Immature Granu locytes (promyelocytes, myelocytes and metamyelocytes) > 1% indicates that a LEFT SHIFT is Present. Iron (Unsp spec) [Mass/Mass] Ordered By: Blade Milner on 12-11-2024 Iron [Mass/Vol] 38 ug/dL Low 65-175 [facility] Iron measurement (mass/mass) Ordered By: Blade Milner on 12-11-2024 Iron (Unsp spec) [Mass/Mass] 38 ug/dL Low 65-175 [facility] Laboratory - Chemistry and C hemistry - challengeOrdered By: Blade Milner on 12-11-2024 AST [Catalytic activity/Vol] 15 U/L <38 [facility] Lymphocytes Auto (Unsp spec) [#/Vol]Ordered By: Blade Milner on 12-11-2024 Lymphocytes (Bld) [#/Vol] 0.55 10*3/uL Low 0.83-4.51 [facility] Lymphocytes/100 WBC Auto (Un sp spec)Ordered By: Blade Milner on 12-11-2024 Lymphocytes/100 WBC (Bld) 12.6 % Low 19-41 [facility] MCV (mean corpuscular volume ) determinationOrdered By: Blade Milner on 12-11-2024 MCV (RBC) [Entitic vol] 88.8 fL 80-94 [facility] Mean corpuscular hemoglobin (MCH) determinationOrdered By: Blade Milner on 12-11-2024 MCH (RBC) [Entitic mass] 28.8 pg 27.0-32.0 [facility] Mean corpuscular hemoglobin concentration (MCHC) determinationOrdered By: Blade Milner on 12-11-2024 MCHC (RBC) [Mass/Vol] 32.5 g/dL 32-36 [facility] Mean platelet volume determi nationOrdered By: Blade Milner on 12-11-2024 Platelet mean volume (Bld) [Entitic vol] 10.6 fL 6.2-12.0 [facility] Monocyte percentageOrdered B y: Blade Milner on 12-11-2024 Monocytes/100 WBC (Bld) 10.8 % High 0-10 [facility] Neutrophil percentageOrdered By: Blade Milner on 12-11-2024 Neutrophils/100 WBC (Bld) 72.9 % High 47-70 [facility] Nucleated red blood cell per centageOrdered By: Blade Milner on 12-11-2024 Nucleated RBC/100 WBC (Bld) [Ratio] 0 % 0-5 [facility] Platelet countOrdered By: Zacarias Milner on 12-11-2024 Platelets (Bld) [#/Vol] 156 10*3/uL 150-450 [facility] Potassium (Unsp spec) [Mass/ Vol]Ordered By: Blade Milner on 12-11-2024 Potassium [Moles/Vol] 4.0 mmol/L 3.3-5.1 [facility] Potassium measurement (mass/ volume)Ordered By: lBade Milner on 12-11-2024 Potassium (Unsp spec) [Mass/Vol] 4.0 mmol/L 3.3-5.1 [facility] RBC Auto (Bld) [#/Vol]Ordere d By: Blade Milner on 12-11-2024 RBC (Bld) [#/Vol] 4.72 10*6/uL 4.6-6.2 [facility] Serum creatinine measurement (mass/volume)Ordered By: Blade Milner on 12-11-2024 Creatinine [Mass/Vol] 1.00 mg/dL 0.70-1.20 [facility] Serum globulin measurementOr dered By: Blade Milner on 12-11-2024 Globulin (S) [Mass/Vol] 2.0 g/dL Low 2.2-4.2 [facility] Serum glucose measurement (m ass/volume)Ordered By: Blade Milner on 12-11-2024 Glucose [Mass/Vol] 92 mg/dL 70-99 [facility] Serum or plasma alanine oropeza otransferase (ALT) measurementOrdered By: Blade Milner on 12-11-2024 ALT [Catalytic activity/Vol] 12 U/L <47 [facility] Serum or plasma albumin giovanny urement (mass/volume)Ordered By: Blade Milner on 12-11-2024 Albumin [Mass/Vol] 4.1 g/dL 3.4-4.8 [facility] Serum or plasma albumin/glob ulin mass ratioOrdered By: Blade Milner on 12-11-2024 Albumin/Globulin [Mass ratio] 2.0 {ratio} 0.9-2.4 [facility] Serum or plasma alkaline stacy sphatase measurementOrdered By: Blade Milner on 12-11-2024 ALP [Catalytic activity/Vol] 55 U/L 40-129 [facility] Serum or plasma calcium giovanny urement (mass/volume)Ordered By: Blade Milner on 12-11-2024 Calcium [Mass/Vol] 9.8 mg/dL 7.6-11.0 [facility] Serum or plasma ferritin blake surement (mass/volume)Ordered By: Blade Milner on 12-11-2024 Ferritin [Mass/Vol] 83 ng/mL 37-417 [facility] Serum or plasma urea nitroge n measurement (mass/volume)Ordered By: Blade Milner on 12-11-2024 Urea nitrogen [Mass/Vol] 18 mg/dL 4-19 [facility] Sodium levelOrdered By: Stalin Milner on 12-11-2024 Sodium [Moles/Vol] 139 mmol/L 133-145 [facility] TSH DL <= 0.005 mIU/L QnOrde red By: Blade Milner on 12-11-2024 Thyroid Stimulating Hormone (TSH) 7.310 uIU/mL High 0.300-4.200 [facility] TSH Qn 7.310 uIU/mL High 0.300-4.200 [facility] ThyroxineOrdered By: Blade nolan on 12-11-2024 T4 [Mass/Vol] 7.2 ug/dL 4.5-12.1 [facility] Total proteinOrdered By: Nabor Milner on 12-11-2024 Protein [Mass/Vol] 6.2 g/dL 5.9-8.4 [facility] White blood cell (WBC) count Ordered By: Blade Milner on 12-11-2024 WBC (Bld) [#/Vol] 4.4 10*3/uL 4.4-11.0 [facility] Absolute neutrophil countOrd ered By: Jenn Perez on 12-07-2024 Neutrophils (Bld) [#/Vol] 2.6 10*3/uL 2.0-7.7 [facility] Addendum DocumentOrdered By: Jenn Perez on 12-07-2024 Serum Immunofixation Comments Comment . [facility] Comment on above: Protein electrophore sis scan will follow via computer,mail, or forging die sinker delivery. Albumin Elph [Mass/Vol]Order ed By: Jenn Perez on 12-07-2024 Albumin [Mass/Vol] 3.5 g/dL 2.9-4.4 [facility] Alpha 1 globulin Elph [Mass/ Vol]Ordered By: Jenn Perez on 12-07-2024 Okbcd-6-Njghrhxil (ELINA) 0.2 g/dL 0.0-0.4 [facility] Rwfka-7-Wfosflxzz (ELINA) 0.9 g/dL 0.4-1.0 [facility] Anion gap in Serum or Plasma Ordered By: Jenn Perez on 12-07-2024 Anion gap [Moles/Vol] 12 mmol/L 5-15 [facility] BUN/creatinine ratioOrdered By: Jenn Perez on 12-07-2024 Urea nitrogen/Creatinine [Mass ratio] 18.0 mg/mg 10-20 [facility] Basophil percentageOrdered B y: Jenn Perez on 12-07-2024 Basophils/100 WBC (Bld) 1.1 % High 0-1 [facility] Beta globulin Elph [Mass/Vol ]Ordered By: Jenn Perez on 12-07-2024 Beta-Globulins (ELINA) 0.9 g/dL 0.7-1.3 [facility] Bilirubin, totalOrdered By: Jenn Perez on 12-07-2024 Bilirubin [Mass/Vol] 0.23 mg/dL 0.00-1.30 [facility] CBC W/Diff, Automatedon 11-25 Absolute Lymph 0.48 X10 3/uL Low 0.83-4.51 [facility] Comment on above: Performed By: #### L 500.4050, L100.0100 ####[facility] [address] [place], [address] Absolute Neut 2.6 X10 3/uL Normal 2.0-7.7 [facility] Comment on above: Performed By: #### L 500.4050, L100.0100 ####[facility] [address] [place], [address] Basophils/100 WBC (Bld) 1.1 % High 0-1 [facility] Comment on above: Performed By: #### L 500.4050, L100.0100 ####[facility] [address] [place], [address] Eosinophils/100 WBC (Bld) 3.0 % Normal 0-5 [facility] Comment on above: Performed By: #### L 500.4050, L100.0100 ####[facility] [address] [place], [address] Erythrocyte distribution width (RBC) [Ratio] 14.9 % High 11.6-14.6 [facility] Comment on above: Performed By: #### L 500.4050, L100.0100 ####[facility] [address] [place], [address] Hematocrit (Bld) [Volume fraction] 39.2 % Low 40-54 [facility] Comment on above: Performed By: #### L 500.4050, L100.0100 ####[facility] [address] [place], [address] Hemoglobin (Bld) [Mass/Vol] 12.7 g/dL Low 13.0-16.5 [facility] Comment on above: Performed By: #### L 500.4050, L100.0100 ####[facility] [address] [place], [address] IG% 0.300 Normal 0.0-0.9 [facility] Comment on above: Result Comment: IG% - Immature Granulocytes (promyelocytes, myelocytes andmetamyelocytes) > 1% indicates that a LEFT SHIFT is Present. Performed By: #### L 500.4050, L100.0100 ####[facility] [address] [place], [address] Lymphocytes/100 WBC (Bld) 13.2 % Low 19-41 [facility] Comment on above: Performed By: #### L 500.4050, L100.0100 ####[facility] [address] [place], [address] MCH (RBC) [Entitic mass] 28.7 pg Normal 27.0-32.0 [facility] Comment on above: Performed By: #### L 500.4050, L100.0100 ####[facility] [address] [place], [address] MCHC (RBC) [Mass/Vol] 32.4 g/dL Normal 32-36 [facility] Comment on above: Performed By: #### L 500.4050, L100.0100 ####[facility] [address] [place], [address] MCV (RBC) [Entitic vol] 88.5 fL Normal 80-94 [facility] Comment on above: Performed By: #### L 500.4050, L100.0100 ####[facility] [address] [place], [address] Monocytes/100 WBC (Bld) 11.3 % High 0-10 [facility] Comment on above: Performed By: #### L 500.4050, L100.0100 ####[facility] [address] [place], [address] Neutrophils/100 WBC (Bld) 71.1 % High 47-70 [facility] Comment on above: Performed By: #### L 500.4050, L100.0100 ####[facility] [address] [place], [address] Nucleated RBC (Bld) [#/Vol] 0 10*3/uL Normal 0-5 [facility] Comment on above: Performed By: #### L 500.4050, L100.0100 ####[facility] [address] [place], [address] Platelet mean volume (Bld) [Entitic vol] 10.4 fL Normal 6.2-12.0 [facility] Comment on above: Performed By: #### L 500.4050, L100.0100 ####[facility] [address] [place], [address] Platelets (Bld) [#/Vol] 168 10*3/uL Normal 150-450 [facility] Comment on above: Performed By: #### L 500.4050, L100.0100 ####[facility] [address] [place], [address] RBC (Bld) [#/Vol] 4.43 10*6/uL Low 4.6-6.2 [facility] Comment on above: Performed By: #### L 500.4050, L100.0100 ####[facility] [address] [place], [address] RDW SD 48.1 fl High 35.1-43.9 [facility] Comment on above: Performed By: #### L 500.4050, L100.0100 ####[facility] [address] [place], [address] WBC (Bld) [#/Vol] 3.6 10*3/uL Low 4.4-11.0 [facility] Comment on above: Performed By: #### L 500.4050, L100.0100 ####[facility] [address] [place], [address] Absolute Neut Normal 2.0-7.7 [facility] Comment on above: Result Comment: DUPL ICATE TESTS TO TX PLAN Performed By: #### L 3130.0010, L100.0100, L500.4050, L3100.3425 ####[facility] [address] [place], [address] HCT Normal 40-54 [facility] Comment on above: Result Comment: DUPL ICATE TESTS TO TX PLAN Performed By: #### L 3130.0010, L100.0100, L500.4050, L3100.3425 ####[facility] [address] [place], [address] HGB Normal 13.0-16.5 [facility] Comment on above: Result Comment: DUPL ICATE TESTS TO TX PLAN Performed By: #### L 3130.0010, L100.0100, L500.4050, L3100.3425 ####[facility] [address] [place], [address] MCH Normal 27.0-32.0 [facility] Comment on above: Result Comment: DUPL ICATE TESTS TO TX PLAN Performed By: #### L 3130.0010, L100.0100, L500.4050, L3100.3425 ####[facility] [address] [place], [address] MCHC Normal 32-36 [facility] Comment on above: Result Comment: DUPL ICATE TESTS TO TX PLAN Performed By: #### L 3130.0010, L100.0100, L500.4050, L3100.3425 ####[facility] [address] [place], [address] MCV Normal 80-94 [facility] Comment on above: Result Comment: DUPL ICATE TESTS TO TX PLAN Performed By: #### L 3130.0010, L100.0100, L500.4050, L3100.3425 ####[facility] [address] [place], [address] NEUT% Normal 47-70 [facility] Comment on above: Result Comment: DUPL ICATE TESTS TO TX PLAN Performed By: #### L 3130.0010, L100.0100, L500.4050, L3100.3425 ####[facility] [address] [place], [address] PLT Normal 150-450 [facility] Comment on above: Result Comment: DUPL ICATE TESTS TO TX PLAN Performed By: #### L 3130.0010, L100.0100, L500.4050, L3100.3425 ####[facility] [address] [place], [address] RBC Normal 4.6-6.2 [facility] Comment on above: Result Comment: DUPL ICATE TESTS TO TX PLAN Performed By: #### L 3130.0010, L100.0100, L500.4050, L3100.3425 ####[facility] [address] [place], [address] RDW CV Normal 11.6-14.6 [facility] Comment on above: Result Comment: DUPL ICATE TESTS TO TX PLAN Performed By: #### L 3130.0010, L100.0100, L500.4050, L3100.3425 ####[facility] [address] [place], [address] RDW SD Normal 35.1-43.9 [facility] Comment on above: Result Comment: DUPL ICATE TESTS TO TX PLAN Performed By: #### L 3130.0010, L100.0100, L500.4050, L3100.3425 ####[facility] [address] [place], [address] WBC Normal 4.4-11.0 [facility] Comment on above: Result Comment: DUPL ICATE TESTS TO TX PLAN Performed By: #### L 3130.0010, L100.0100, L500.4050, L3100.3425 ####[facility] [address] [place], [address] Calculated total iron bindin g capacityOrdered By: Jenn Perez on 12-07-2024 Total Iron Binding Capacity 265 ug/dL 250-450 [facility] Carbon dioxide, total [Moles /volume] in Central venous bloodOrdered By: Jenn Perez on 12-07-2024 CO2 [Moles/Vol] 25.8 mmol/L 21.0-32.0 [facility] Chloride assayOrdered By: Lorene Perez on 12-07-2024 Chloride [Moles/Vol] 101 mmol/L 98-108 [facility] Comprehensive Metabolic Prof ilon 12-07-2024 Albumin [Mass/Vol] 4.0 g/dL Normal 3.4-4.8 [facility] Comment on above: Performed By: #### L 500.4050, L100.0100 ####[facility] [address] [place], [address] Albumin/Globulin [Mass ratio] 2.0 {ratio} Normal 0.9-2.4 [facility] Comment on above: Performed By: #### L 500.4050, L100.0100 ####[facility] [address] [place], [address] ALK PHOS 57 U/L Normal 40-129 [facility] Comment on above: Performed By: #### L 500.4050, L100.0100 ####[facility] [address] [place], [address] ALT [Catalytic activity/Vol] 10 U/L Normal <=46 [facility] Comment on above: Performed By: #### L 500.4050, L100.0100 ####[facility] [address] [place], [address] AST [Catalytic activity/Vol] 16 U/L Normal <=37 [facility] Comment on above: Performed By: #### L 500.4050, L100.0100 ####[facility] [address] [place], [address] Bilirubin [Mass/Vol] 0.23 mg/dL Normal 0.00-1.30 [facility] Comment on above: Performed By: #### L 500.4050, L100.0100 ####[facility] [address] [place], [address] BUN/CRE 18.0 RATIO Normal 10-20 [facility] Comment on above: Performed By: #### L 500.4050, L100.0100 ####[facility] [address] [place], [address] Calcium [Mass/Vol] 9.5 mg/dL Normal 7.6-11.0 [facility] Comment on above: Performed By: #### L 500.4050, L100.0100 ####[facility] [address] [place], [address] Chloride [Moles/Vol] 101 mmol/L Normal 98-108 [facility] Comment on above: Performed By: #### L 500.4050, L100.0100 ####[facility] [address] [place], [address] CO2 [Moles/Vol] 25.8 mmol/L Normal 21.0-32.0 [facility] Comment on above: Performed By: #### L 500.4050, L100.0100 ####[facility] [address] [place], [address] Creatinine [Mass/Vol] 1.08 mg/dL Normal 0.70-1.20 [facility] Comment on above: Performed By: #### L 500.4050, L100.0100 ####[facility] [address] [place], [address] ECRCL 66.93 ml/min Normal 50-250 [facility] Comment on above: Performed By: #### L 500.4050, L100.0100 ####[facility] [address] [place], [address] GAP 12 Normal 5-15 [facility] Comment on above: Performed By: #### L 500.4050, L100.0100 ####[facility] [address] [place], [address] GFR/1.73 sq M.predicted among non-blacks MDRD (S/P/Bld) [Vol rate/Area] 75 mL/min/{1.73_m2} Normal >60 [facility] Comment on above: Result Comment: mL/m in/1.73m2 CKD-EPI Creatinine Equation (2020) Performed By: #### L 500.4050, L100.0100 ####[facility] [address] [place], [address] Globulin (S) [Mass/Vol] 2.0 g/dL Low 2.2-4.2 [facility] Comment on above: Performed By: #### L 500.4050, L100.0100 ####[facility] [address] [place], [address] Glucose [Mass/Vol] 132 mg/dL High 70-99 [facility] Comment on above: Performed By: #### L 500.4050, L100.0100 ####[facility] [address] [place], [address] Potassium [Moles/Vol] 4.2 mmol/L Normal 3.3-5.1 [facility] Comment on above: Performed By: #### L 500.4050, L100.0100 ####[facility] [address] [place], [address] Sodium [Moles/Vol] 139 mmol/L Normal 133-145 [facility] Comment on above: Performed By: #### L 500.4050, L100.0100 ####[facility] [address] [place], [address] T PROT 6.0 g/dL Normal 5.9-8.4 [facility] Comment on above: Performed By: #### L 500.4050, L100.0100 ####[facility] [address] [place], [address] Urea nitrogen [Mass/Vol] 19 mg/dL Normal 4-19 [facility] Comment on above: Performed By: #### L 500.4050, L100.0100 ####[facility] [address] [place], [address] ALB Normal 3.4-4.8 [facility] Comment on above: Result Comment: DUPL ICATE TESTS TO TX PLAN Performed By: #### L 3130.0010, L100.0100, L500.4050, L3100.3425 ####[facility] [address] [place], [address] ALK PHOS Normal 40-129 [facility] Comment on above: Result Comment: DUPL ICATE TESTS TO TX PLAN Performed By: #### L 3130.0010, L100.0100, L500.4050, L3100.3425 ####[facility] [address] [place], [address] ALT Normal <=46 [facility] Comment on above: Result Comment: DUPL ICATE TESTS TO TX PLAN Performed By: #### L 3130.0010, L100.0100, L500.4050, L3100.3425 ####[facility] [address] [place], [address] AST Normal <=37 [facility] Comment on above: Result Comment: DUPL ICATE TESTS TO TX PLAN Performed By: #### L 3130.0010, L100.0100, L500.4050, L3100.3425 ####[facility] [address] [place], [address] BUN Normal 4-19 [facility] Comment on above: Result Comment: DUPL ICATE TESTS TO TX PLAN Performed By: #### L 3130.0010, L100.0100, L500.4050, L3100.3425 ####[facility] [address] [place], [address] BUN/CRE Normal 10-20 [facility] Comment on above: Result Comment: DUPL ICATE TESTS TO TX PLAN Performed By: #### L 3130.0010, L100.0100, L500.4050, L3100.3425 ####[facility] [address] [place], [address] Calcium Normal 7.6-11.0 [facility] Comment on above: Result Comment: DUPL ICATE TESTS TO TX PLAN Performed By: #### L 3130.0010, L100.0100, L500.4050, L3100.3425 ####[facility] [address] [place], [address] CL Normal 98-108 [facility] Comment on above: Result Comment: DUPL ICATE TESTS TO TX PLAN Performed By: #### L 3130.0010, L100.0100, L500.4050, L3100.3425 ####[facility] [address] [place], [address] CO2 Normal 21.0-32.0 [facility] Comment on above: Result Comment: DUPL ICATE TESTS TO TX PLAN Performed By: #### L 3130.0010, L100.0100, L500.4050, L3100.3425 ####[facility] [address] [place], [address] CREAT,SERUM Normal 0.70-1.20 [facility] Comment on above: Result Comment: DUPL ICATE TESTS TO TX PLAN Performed By: #### L 3130.0010, L100.0100, L500.4050, L3100.3425 ####[facility] [address] [place], [address] eGFR Normal >60 [facility] Comment on above: Result Comment: DUPL ICATE TESTS TO TX PLAN Performed By: #### L 3130.0010, L100.0100, L500.4050, L3100.3425 ####[facility] [address] [place], [address] GAP Normal 5-15 [facility] Comment on above: Result Comment: DUPL ICATE TESTS TO TX PLAN Performed By: #### L 3130.0010, L100.0100, L500.4050, L3100.3425 ####[facility] [address] [place], [address] GLU Normal 70-99 [facility] Comment on above: Result Comment: DUPL ICATE TESTS TO TX PLAN Performed By: #### L 3130.0010, L100.0100, L500.4050, L3100.3425 ####[facility] [address] [place], [address] Potassium Normal 3.3-5.1 [facility] Comment on above: Result Comment: DUPL ICATE TESTS TO TX PLAN Performed By: #### L 3130.0010, L100.0100, L500.4050, L3100.3425 ####[facility] [address] [place], [address] T BILI Normal 0.00-1.30 [facility] Comment on above: Result Comment: DUPL ICATE TESTS TO TX PLAN Performed By: #### L 3130.0010, L100.0100, L500.4050, L3100.3425 ####[facility] [address] [place], [address] T PROT Normal 5.9-8.4 [facility] Comment on above: Result Comment: DUPL ICATE TESTS TO TX PLAN Performed By: #### L 3130.0010, L100.0100, L500.4050, L3100.3425 ####[facility] [address] [place], [address] Comprehensive Metabolic Profil Normal 133-145 [facility] Comment on above: Result Comment: DUPL ICATE TESTS TO TX PLAN Performed By: #### L 3130.0010, L100.0100, L500.4050, L3100.3425 ####[facility] [address] [place], [place], [address] Eosinophil percentageOrdered By: [facility] on 12-07-2024 Eosinophils/100 WBC (Bld) 3.0 % 0-5 [facility] Erythrocyte distribution wid th ratioOrdered By: [facility] Chris on 12-07-2024 Erythrocyte distribution width (RBC) [Ratio] 14.9 % High 11.6-14.6 [facility] Erythrocyte distribution wid th standard deviationOrdered By: [facility] on 12-07-2024 Erythrocyte distribution width (RBC) [Entitic vol] 48.1 fL High 35.1-43.9 [facility] Estimation of creatinine gavin aranceOrdered By: [facility] on 12-07-2024 Estimated Creatinine Clearance Calc 66.93 ml/min 50-250 [facility] Ferritinon 12-07-2024 Ferritin [Mass/Vol] 82 ng/mL Normal 37-417 [facility] Comment on above: Order Comment: KIM Chavez ADD TO BLOOD IN THE LAB. THANK YOU!! Performed By: #### L 503.6550, L503.6030 ####[facility] [address] [place], [place], [address] GFR/1.73 sq M.predicted jesus g non-blacks MDRD (S/P/Bld) [Vol rate/Area]Ordered By: [facility] on 12-07-2024 Estimated GFR (MDRD) Non-Af Amer 75 >60 [facility] Comment on above: mL/min/1.73m2 CKD-EP I Creatinine Equation (2020) Gamma globulin Elph [Mass/Vo l]Ordered By: Jenn Perez on 12-07-2024 Gamma Globulins (ELINA) 0.4 g/dL 0.4-1.8 [facility] Hematocrit Auto (Bld) [Volum e fraction]Ordered By: Jenn Perez on 12-07-2024 Hematocrit (Bld) [Volume fraction] 39.2 % Low 40-54 [facility] Hemoglobin measurementOrdere d By: Jenn Perez on 12-07-2024 Hemoglobin (Bld) [Mass/Vol] 12.7 g/dL Low 13.0-16.5 [facility] IgA [Mass/Vol]Ordered By: Lorene jody Perez on 12-07-2024 Immunoglobulin A 21 mg/dL Low 61-437 [facility] Comment on above: Result confirmed on concentration. IgG [Mass/Vol]Ordered By: Lorene Perez on 12-07-2024 Immunoglobulin G 441 mg/dL Low 603-1613 [facility] Immature granulocytes/100 WB C Auto (Bld)Ordered By: Jenn Perez on 12-07-2024 Immature granulocytes/100 WBC (Bld) 0.300 % 0.0-0.9 [facility] Comment on above: IG% - Immature Granu locytes (promyelocytes, myelocytes and metamyelocytes) > 1% indicates that a LEFT SHIFT is Present. Immunoglobulin M measurement Ordered By: Jenn Perez on 12-07-2024 Immunoglobulin M 15 mg/dL Low 20-172 [facility] Comment on above: Result confirmed on concentration. Immunoglobulin light chains. kappa [Mass/Vol]Ordered By: Jenn Perez on 12-07-2024 Free [place] Light Chains, Quant 5.7 mg/L 3.3-19.4 [facility] Immunoglobulin light chains. kappa/Immunoglobulin light chains.lambda (S) [Mass ratio]Ordered By: Jenn Perez on 12-07-2024 Free [place]/Lambda Light Chain Ratio 2.11 High 0.26-1.65 [facility] Comment on above: Performed at: [place] [id number] Director: Micky Arreola PhD, Phone: [phone] Interpretation IEP [Interp]O rdered By: Jenn Perez on 12-07-2024 Immunofixation Screen Comment High . [facility] Comment on above: Immunofixation shows IgG monoclonal protein with kappalight chain specificity. PLEASE NOTE: Samples from patients receiving DARZALEX(R)(daratumumab) or SARCLISA(R)(isatuximab-irfc) treatmentcan appear as an "IgG kappa" and mask a complete response(CR). If this patient is receiving these therapies, thisIFE assay interference can be removed by ordering testnumber [id number]-"Immunofixation, Daratumumab-Specific,Serum" or [id number]-"Immunofixation, Isatuximab-Specific,Serum" and submitting a new sample for testing or bycalling the lab to add this test to the current sample. Iron (Unsp spec) [Mass/Mass] Ordered By: [facility] on 12-07-2024 Iron [Mass/Vol] 38 ug/dL Low 65-175 [facility] Iron measurement (mass/mass) Ordered By: Jenn Perez on 12-07-2024 Iron (Unsp spec) [Mass/Mass] 38 ug/dL Low 65-175 [facility] Iron saturation [Mass fracti on]Ordered By: Jenn Perez on 12-07-2024 Iron Saturation 14.0 % 9-55 [facility] Iron+Iron Binding Capacityon 12-07-2024 Iron [Mass/Vol] 38 ug/dL Low 65-175 [facility] Comment on above: Order Comment: PLEAS E ADD TO BLOOD IN THE LAB. THANK YOU!! Performed By: #### L 503.6550, L503.6030 ####[facility] [address] [place], [address] IRON SATURATION 14.0 Normal 9-55 [facility] Comment on above: Order Comment: PLEAS E ADD TO BLOOD IN THE LAB. THANK YOU!! Performed By: #### L 503.6550, L503.6030 ####[facility] [address] [place], [address] TIBC 265 ug/dL Normal 250-450 [facility] Comment on above: Order Comment: PLEAS E ADD TO BLOOD IN THE LAB. THANK YOU!! Performed By: #### L 503.6550, L503.6030 ####[facility] [address] [place], [place], [address] UIBC 227 ug/dL Low 228-428 [facility] Comment on above: Order Comment: KIM E ADD TO BLOOD IN THE LAB. THANK YOU!! Performed By: #### L 503.6550, L503.6030 ####[facility] [address] [place], [address] Laboratory - Chemistry and C hemistry - challengeOrdered By: Georginadayanna Perez on 12-07-2024 AST [Catalytic activity/Vol] 16 U/L <38 [facility] Lambda free light chain giovanny urementOrdered By: [facility] on 12-07-2024 Free Lambda Light Chains, Quant 2.7 mg/L Low 5.7-26.3 [facility] Lymphocytes Auto (Unsp spec) [#/Vol]Ordered By: [facility] on 12-07-2024 Lymphocytes (Bld) [#/Vol] 0.48 10*3/uL Low 0.83-4.51 [facility] Lymphocytes/100 WBC Auto (Un sp spec)Ordered By: [facility] on 12-07-2024 Lymphocytes/100 WBC (Bld) 13.2 % Low 19-41 [facility] MCV (mean corpuscular volume ) determinationOrdered By: Jenn Perez on 12-07-2024 MCV (RBC) [Entitic vol] 88.5 fL 80-94 [facility] Mean corpuscular hemoglobin (MCH) determinationOrdered By: Jenn Perez on 12-07-2024 MCH (RBC) [Entitic mass] 28.7 pg 27.0-32.0 [facility] Mean corpuscular hemoglobin concentration (MCHC) determinationOrdered By: [facility] on 12-07-2024 MCHC (RBC) [Mass/Vol] 32.4 g/dL 32-36 [facility] Mean platelet volume determi nationOrdered By: Jenn Perez on 12-07-2024 Platelet mean volume (Bld) [Entitic vol] 10.4 fL 6.2-12.0 [facility] Monocyte percentageOrdered B y: Jenn Perez on 12-07-2024 Monocytes/100 WBC (Bld) 11.3 % High 0-10 [facility] Neutrophil percentageOrdered By: Jenn Perez on 12-07-2024 Neutrophils/100 WBC (Bld) 71.1 % High 47-70 [facility] No Panel InformationOrdered By: Jenn Perez on 12-07-2024 Unsaturated Iron Binding Capacity 227 ug/dL Low 228-428 [facility] Nucleated red blood cell per centageOrdered By: Jenn Perez on 12-07-2024 Nucleated RBC/100 WBC (Bld) [Ratio] 0 % 0-5 [facility] Oncology Visit Reporton 11-25 Oncology Visit Report Normal [facility] Platelet countOrdered By: Lorene Perez on 12-07-2024 Platelets (Bld) [#/Vol] 168 10*3/uL 150-450 [facility] Potassium (Unsp spec) [Mass/ Vol]Ordered By: Jenn Perez on 12-07-2024 Potassium [Moles/Vol] 4.2 mmol/L 3.3-5.1 [facility] Protein Fractions Immunofixa tion Johnny [Interp]Ordered By: Jenn Perez on 12-07-2024 M-Raúl (ELINA) Comment: g/dL Not Observed [facility] Comment on above: Due to the small bouchra ntity of monoclonal protein, unable toquantitate the M-spike. RBC Auto (Bld) [#/Vol]Ordere d By: Jenn Perez on 12-07-2024 RBC (Bld) [#/Vol] 4.43 10*6/uL Low 4.6-6.2 [facility] Serum albumin/globulin ratio Ordered By: Jenn Perez on 12-07-2024 Albumin/Globulin (ELINA) 1.5 0.7-1.7 [facility] Serum creatinine measurement (mass/volume)Ordered By: Jenn Perez on 12-07-2024 Creatinine [Mass/Vol] 1.08 mg/dL 0.70-1.20 [facility] Serum globulin measurementOr dered By: Jenn Perez on 12-07-2024 Globulin (S) [Mass/Vol] 2.0 g/dL Low 2.2-4.2 [facility] Serum globulin measurement ( mass/volume)Ordered By: Jenn Perez on 12-07-2024 Globulin (S) [Mass/Vol] 2.4 g/dL 2.2-3.9 [facility] Serum glucose measurement (m ass/volume)Ordered By: Jenn Perez on 12-07-2024 Glucose [Mass/Vol] 132 mg/dL High 70-99 [facility] Serum or plasma alanine oropeza otransferase (ALT) measurementOrdered By: Jenn Perez on 12-07-2024 ALT [Catalytic activity/Vol] 10 U/L <47 [facility] Serum or plasma albumin giovanny urement (mass/volume)Ordered By: Jenn Perez on 12-07-2024 Albumin [Mass/Vol] 4.0 g/dL 3.4-4.8 [facility] Serum or plasma albumin/glob ulin mass ratioOrdered By: Jenn Perez on 12-07-2024 Albumin/Globulin [Mass ratio] 2.0 {ratio} 0.9-2.4 [facility] Serum or plasma alkaline stacy sphatase measurementOrdered By: Jenn Perez on 12-07-2024 ALP [Catalytic activity/Vol] 57 U/L 40-129 [facility] Serum or plasma calcium giovanny urement (mass/volume)Ordered By: Jenn Perez on 12-07-2024 Calcium [Mass/Vol] 9.5 mg/dL 7.6-11.0 [facility] Serum or plasma ferritin blake surement (mass/volume)Ordered By: Jenn Perez on 12-07-2024 Ferritin [Mass/Vol] 82 ng/mL 37-417 [facility] Serum or plasma iron saturat ion measurement (mass fraction)Ordered By: Jenn Perez on 12-07-2024 Iron saturation [Mass fraction] 14.0 % 9-55 [facility] Serum or plasma protein giovanny urement (mass/volume)Ordered By: Jenn Perez on 12-07-2024 Protein [Mass/Vol] 5.9 g/dL Low 6.0-8.5 [facility] Serum or plasma urea nitroge n measurement (mass/volume)Ordered By: Jenn Chris on 12-07-2024 Urea nitrogen [Mass/Vol] 19 mg/dL 4-19 [facility] Sodium levelOrdered By: Georgina Kingtez on 12-07-2024 Sodium [Moles/Vol] 139 mmol/L 133-145 [facility] Total proteinOrdered By: Lam gates Chris on 12-07-2024 Protein [Mass/Vol] 6.0 g/dL 5.9-8.4 [facility] White blood cell (WBC) count Ordered By: Jenn Chris on 12-07-2024 WBC (Bld) [#/Vol] 3.6 10*3/uL Low 4.4-11.0 [facility] CNNURSEon 11-28-2024 CNNURSE Nurse Visit (IVONNEURFCrystal) ARMAND BARRON ([id number]) 1955 M Date Time Provider Department 11/28/24 3:00 PM NURSE BAHMANL CHRISTIN FISHER During your visit today, we recorded the following information about you: Niharika Harrison RN 11/28/2024 2:49 PM Signed Patient in for CIC teaching. Given [facility] CIC patient education sheet. Instructed on proper technique and s/s of infection, cath after trying to void, how to track. Verbalized understanding to all instruction. Patient able to cath self with nurse instruction/assistance . Used 16 senegalese coloplast speedicath soft catheter. Samples given. 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 Please allow me to [...] done. Patient had been doing therapy at [facility] in [place] and staff noted that his incision began looking erythematous, with copious drainage. [facility] by [facility]. Went to IR on 12/02 for drain placement and fluid sent for culture, no growth. He remained clinically very stable. Patient discharged to return to [facility] in [place] The patient received a course of 20 [...] replaced on Wednesday. 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; lateral lobes hypertrophy mild just coapting in the midline and prostatic urethra is not long at all and bladder minimal trabeculation but posterior wall swelling is expected with chronic catheter November 10, 2024-renal ultrasound-no hydronephrosis; 5.8 cm left lower pole renal cyst Febrile 2022-CT with IV outside piqcveggmhf-arzkwyvw-p eft renal cyst and Vanegas catheter in place and prostate gland normal size No results found for: CREAT No results found for: PSA No results found for: "COLOR", "CLARITY", "UGLUC", "UBILI", "UKET", "SPGR", "UHB", "UPH", "UPROT", "UROBILINOGEN", "NITRITES", "LEUKEST" Review of Systems Constitutional: Negative. HENT: Negative. Eyes: Negative. Respiratory: Negative. Cardiovascular: Negative. Gastrointestinal: Negative. Endocrine: Negative. Genitourinary: See HPI Musculoskeletal: Negative. Skin: Negative. Allergic/Immunologic: Negative. Neurological: Negative. Hematological: Negative. Psychiatric/ (more content not included)... Normal [facility] L/S Spine Min 4 Viewson 10-29 L/S Spine Min 4 Views Normal [facility] Orthopedic Visit Reporton Orthopedic Visit Report Normal [facility] ELINA + Protein Elect, Serumon 11-14-2024 Albumin [Mass/Vol] 3.5 g/dL Normal 2.9-4.4 [facility] Comment on above: Order Comment: N Performed By: #### L 3100.3425, L3130.0010 ####[facility] [address] [place], [address] Albumin/Globulin [Mass ratio] 1.7 {ratio} Normal 0.7-1.7 [facility] Comment on above: Order Comment: N Performed By: #### L 3100.3425, L3130.0010 ####[facility] [address] [place], [address] NOCSW-5-DZNL 0.2 g/dL Normal 0.0-0.4 [facility] Comment on above: Order Comment: N Performed By: #### L 3100.3425, L3130.0010 ####[facility] [address] [place], [address] GCPHR-4-YCIL 0.8 g/dL Normal 0.4-1.0 [facility] Comment on above: Order Comment: N Performed By: #### L 3100.3425, L3130.0010 ####[facility] [address] [place], [address] BETA GLOBULIN 0.8 g/dL Normal 0.7-1.3 [facility] Comment on above: Order Comment: N Performed By: #### L 3100.3425, L3130.0010 ####[facility] [address] [place], [address] GAMMA GLOBULIN 0.3 g/dL Low 0.4-1.8 [facility] Comment on above: Order Comment: N Performed By: #### L 3100.3425, L3130.0010 ####[facility] [address] [place], [address] Globulin (S) [Mass/Vol] 2.1 g/dL Abnormal 2.2-3.9 [facility] Comment on above: Order Comment: N Performed By: #### L 3100.3425, L3130.0010 ####[facility] [address] [place], [address] ELINA RESULT,S Comment Abnormal . [facility] Comment on above: Order Comment: N Result Comment: Immu nofixation shows IgG monoclonal protein with kappalight chain specificity. PLEASE NOTE: Samples from patients receiving DARZALEX(R)(daratumumab) or SARCLISA(R)(isatuximab-irfc) treatmentcan appear as an "IgG kappa" and mask a complete response(CR). If this patient is receiving these therapies, thisIFE assay interference can be removed by ordering testnumber [id number]-"Immunofixation, Daratumumab-Specific,Serum" or [id number]-"Immunofixation, Isatuximab-Specific,Serum" and submitting a new sample for testing or bycalling the lab to add this test to the current sample. Performed By: #### L 3100.3425, L3130.0010 ####[facility] [address] [place], [address] IMMUNOGLOB A QN 21 mg/dL Low 61-437 [facility] Comment on above: Order Comment: N Result Comment: Resu lt confirmed on concentration. Performed By: #### L 3100.3425, L3130.0010 ####[facility] [address] [place], [address] IMMUNOGLOB G QN 461 mg/dL Low 603-1613 [facility] Comment on above: Order Comment: N Performed By: #### L 3100.3425, L3130.0010 ####[facility] [address] [place], [address] IMMUNOGLOB M QN 14 mg/dL Low 20-172 [facility] Comment on above: Order Comment: N Result Comment: Resu lt confirmed on concentration. Performed By: #### L 3100.3425, L3130.0010 ####[facility] [address] [place], [address] M-Raúl 0.1 g/dL Abnormal Not Observed [facility] Comment on above: Order Comment: N Performed By: #### L 3100.3425, L3130.0010 ####[facility] [address] [place], [address] NOTE: Comment Normal . [facility] Comment on above: Order Comment: N Result Comment: Prot ein electrophoresis scan will follow via computer,mail, or forging die sinker delivery. Performed By: #### L 3100.3425, L3130.0010 ####[facility] [address] [place], [address] Protein [Mass/Vol] 5.6 g/dL Low 6.0-8.5 [facility] Comment on above: Order Comment: N Performed By: #### L 3100.3425, L3130.0010 ####[facility] [address] [place], [address] [place] [facility] 11-14-2024 FR KAPPA LT CHN 6.0 mg/L Normal 3.3-19.4 [facility] Comment on above: Performed By: #### L 3100.3425, L3130.0010 ####[facility] [address] [place], [address] FR LAMBDA LT CH 2.7 mg/L Abnormal 5.7-26.3 [facility] Comment on above: Performed By: #### L 3100.3425, L3130.0010 ####[facility] [address] [place], [place], [address] KAPPA/LAMBDA % 2.22 Abnormal 0.26-1.65 [facility] Comment on above: Result Comment: Perf ormed at: CB - [facility] [address] [place], [place] [id number] Director: Micky Arreola PhD, Phone: [phone] Performed By: #### L 3103.3429, L3130.0010 ####[facility] [address] [place], [place], [address] US Kidney - bilateral and Ur inary bladderon 11-12-2024 IMPRESSION: No hydronephrosis. 5.8 cm left inferior pole renal cyst. Residential Property Manager: VICTOR M Transcribe Date/Time: Nov 12 2024 6:24P Dictated by : MUSA GERARD MD This examination was interpreted and the report reviewed and electronically signed by: MUSA GERARD MD on Nov 12 2024 6:25PM [facility] DIVISION OF RADIOLOGY * * *Final Report* * * DATE OF EXAM: Nov 10 2024 3:02PM [facility] 1055 - US KIDNEY/BLADDER / PROCEDURE REASON: [...] catheter in place. DIVISION OF RADIOLOGY Provider, Tosin Melisa [facility] - 11/12/2024 * * *Final Report* * * DATE OF EXAM: Nov 10 2024 3:02PM [facility] 1055 - US KIDNEY/BLADDER / PROCEDURE REASON: [...] 5.8 cm left inferior pole renal cyst. Residential Property [facility] Transcribe Date/Time: Nov 12 2024 6:24P Dictated by : MUSA GERARD MD This examination was interpreted and the report reviewed and electronically signed by: MUSA GERARD MD on Nov 12 2024 6:25PM [facility] US Kidney - bilateral and Ur inary bladderOrdered By: Ccf Provider on 11-12-2024 [facility] CNOVon 11-10-2024 CNOV Office Visit (IVONNEURFCrystal ) ARMAND BARRON ([id number]) 1955 M Date Time Provider Department 11/10/24 10:00 AM RIC SOUZA During your visit today, we recorded the following information about you: Pulse Height 72/minute 1.651 m Ric Souza MD 11/16/2024 10:16 AM Signed NEW PATIENT HISTORY AND PHYSICAL EXAM patient declined bank officer PATIENT INFO: Armand Barron 69 year old [...] 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 Please allow me to [...] done. Patient had been doing therapy at [facility] in [place] and staff noted that his incision began looking erythematous, with copious drainage. [facility] was [facility] for [facility] by neuro[facility]. Went to IR on 12/02 for drain placement and fluid sent for culture, no growth. He remained clinically very stable. Patient discharged to return to [facility] in [place] The patient received a course of 20 [...] res: Febrile 14 2022-CT with IV outside wwimfmlwdup-xxncrvur-n eft renal cyst and Vanegas catheter in place and prostate gland normal size No results found for: CREAT No results found for: PSA No results found for: "COLOR", "CLARITY", "UGLUC", "UBILI", "UKET", "SPGR", "UHB", "UPH", "UPROT", "UROBILINOGEN", "NITRITES", "LEUKEST" Review of Systems Constitutional: Negative. HENT: Negative. [...] mouth. gabapentin (more content not included)... Normal [facility] US KIDNEY/BLADDERon 11-10-19 25 US KIDNEY/BLADDER * * *Final Report* * * DATE OF EXAM: Nov 10 2024 3:02PM [facility] 1055 - US KIDNEY/BLADDER / PROCEDURE REASON: [...] 5.8 cm left inferior pole renal cyst. Residential Property Manager[facility] Transcribe Date/Time: Nov 12 2024 6:24P Dictated by : MUSA GERARD MD This examination was interpreted and the report reviewed and electronically signed by: MUSA GERARD MD on Nov 12 2024 6:25PM EST [id number] Normal [facility] US Kidney - bilateral and Ur inary bladderon 11-10-2024 Radiology Study observation (narrative) [facility] Addendum DocumentOrdered By: Zayda Hanson on 11-09-2024 Serum Immunofixation Comments Comment . [facility] Comment on above: Protein electrophore sis scan will follow via computer,mail, or forging die sinker delivery. Albumin Elph [Mass/Vol]Order ed By: Zayda Hanson on 11-09-2024 Albumin [Mass/Vol] 3.5 g/dL 2.9-4.4 [facility] Alpha 1 globulin Elph [Mass/ Vol]Ordered By: Zayda Hanson on 11-09-2024 Kbgvj-8-Ltcbvhjdp (ELINA) 0.2 g/dL 0.0-0.4 [facility] Ehjhk-5-Qibusjtoq (ELINA) 0.8 g/dL 0.4-1.0 [facility] Beta globulin Elph [Mass/Vol ]Ordered By: Zayda Hasnon on 11-09-2024 Beta-Globulins (ELINA) 0.8 g/dL 0.7-1.3 [facility] CBC W/Diff, Automatedon 10-28 Absolute Lymph 0.55 X10 3/uL Low 0.83-4.51 [facility] Comment on above: Performed By: #### L 100.0100, L500.4050 ####[facility] [address] [place], [address] Absolute Neut 2.7 X10 3/uL Normal 2.0-7.7 [facility] Comment on above: Performed By: #### L 100.0100, L500.4050 ####[facility] [address] [place], [address] Basophils/100 WBC (Bld) 0.8 % Normal 0-1 [facility] Comment on above: Performed By: #### L 100.0100, L500.4050 ####[facility] [address] [place], [address] Eosinophils/100 WBC (Bld) 5.3 % High 0-5 [facility] Comment on above: Performed By: #### L 100.0100, L500.4050 ####[facility] [address] [place], [address] Erythrocyte distribution width (RBC) [Ratio] 14.9 % High 11.6-14.6 [facility] Comment on above: Performed By: #### L 100.0100, L500.4050 ####[facility] [address] [place], [address] Hematocrit (Bld) [Volume fraction] 39.1 % Low 40-54 [facility] Comment on above: Performed By: #### L 100.0100, L500.4050 ####[facility] [address] [place], [address] Hemoglobin (Bld) [Mass/Vol] 12.5 g/dL Low 13.0-16.5 [facility] Comment on above: Performed By: #### L 100.0100, L500.4050 ####[facility] [address] [place], [address] IG% 0.500 Normal 0.0-0.9 [facility] Comment on above: Result Comment: IG% - Immature Granulocytes (promyelocytes, myelocytes andmetamyelocytes) > 1% indicates that a LEFT SHIFT is Present. Performed By: #### L 100.0100, L500.4050 ####[facility] [address] [place], [address] Lymphocytes/100 WBC (Bld) 13.8 % Low 19-41 [facility] Comment on above: Performed By: #### L 100.0100, L500.4050 ####[facility] [address] [place], [address] MCH (RBC) [Entitic mass] 28.5 pg Normal 27.0-32.0 [facility] Comment on above: Performed By: #### L 100.0100, L500.4050 ####[facility] [address] [place], [address] MCHC (RBC) [Mass/Vol] 32.0 g/dL Normal 32-36 [facility] Comment on above: Performed By: #### L 100.0100, L500.4050 ####[facility] [address] [place], [address] MCV (RBC) [Entitic vol] 89.3 fL Normal 80-94 [facility] Comment on above: Performed By: #### L 100.0100, L500.4050 ####[facility] [address] [place], [address] Monocytes/100 WBC (Bld) 12.5 % High 0-10 [facility] Comment on above: Performed By: #### L 100.0100, L500.4050 ####[facility] [address] [place], [address] Neutrophils/100 WBC (Bld) 67.1 % Normal 47-70 [facility] Comment on above: Performed By: #### L 100.0100, L500.4050 ####[facility] [address] [place], [address] Nucleated RBC (Bld) [#/Vol] 0 10*3/uL Normal 0-5 [facility] Comment on above: Performed By: #### L 100.0100, L500.4050 ####[facility] [address] [place], [address] Platelet mean volume (Bld) [Entitic vol] 10.5 fL Normal 6.2-12.0 [facility] Comment on above: Performed By: #### L 100.0100, L500.4050 ####[facility] [address] [place], [address] Platelets (Bld) [#/Vol] 156 10*3/uL Normal 150-450 [facility] Comment on above: Performed By: #### L 100.0100, L500.4050 ####[facility] [address] [place], [address] RBC (Bld) [#/Vol] 4.38 10*6/uL Low 4.6-6.2 [facility] Comment on above: Performed By: #### L 100.0100, L500.4050 ####[facility] [address] [place], [address] RDW SD 48.3 fl High 35.1-43.9 [facility] Comment on above: Performed By: #### L 100.0100, L500.4050 ####[facility] [address] [place], [address] WBC (Bld) [#/Vol] 4.0 10*3/uL Low 4.4-11.0 [facility] Comment on above: Performed By: #### L 100.0100, L500.4050 ####[facility] [address] [place], [address] Comprehensive Metabolic Prof ilon 11-09-2024 Albumin [Mass/Vol] 3.3 g/dL Normal 3.2-5.0 [facility] Comment on above: Performed By: #### L 100.0100, L500.4050 ####[facility] [address] [place], [address] Albumin/Globulin [Mass ratio] 1.1 {ratio} Normal 0.9-2.4 [facility] Comment on above: Performed By: #### L 100.0100, L500.4050 ####[facility] [address] [place], [address] ALK P 60 U/L Normal 45-117 [facility] Comment on above: Performed By: #### L 100.0100, L500.4050 ####[facility] [address] [place], [address] ALT [Catalytic activity/Vol] 15 U/L Low 16-61 [facility] Comment on above: Performed By: #### L 100.0100, L500.4050 ####[facility] [address] [place], [address] AST [Catalytic activity/Vol] 11 U/L Low 15-37 [facility] Comment on above: Performed By: #### L 100.0100, L500.4050 ####[facility] [address] [place], [address] Bilirubin [Mass/Vol] 0.30 mg/dL Normal 0.20-1.00 [facility] Comment on above: Result Comment: For patients on eltrombopag therapy, use of Dimension [place] TBIL is not recommended. Performed By: #### L 100.0100, L500.4050 ####[facility] [address] [place], [address] BUN/CRE 17.1 RATIO Normal 10-20 [facility] Comment on above: Performed By: #### L 100.0100, L500.4050 ####[facility] [address] [place], [address] CA,Total 9.2 mg/dL Normal 8.5-10.1 [facility] Comment on above: Performed By: #### L 100.0100, L500.4050 ####[facility] [address] [place], [address] Chloride [Moles/Vol] 106 mmol/L Normal 98-107 [facility] Comment on above: Performed By: #### L 100.0100, L500.4050 ####[facility] [address] [place], [address] CO2 [Moles/Vol] 29.0 mmol/L Normal 21.0-32.0 [facility] Comment on above: Performed By: #### L 100.0100, L500.4050 ####[facility] [address] [place], [address] Creatinine [Mass/Vol] 1.11 mg/dL Normal 0.70-1.30 [facility] Comment on above: Result Comment: The validity of the calculated GFR GFRAA in patients over70 years has not been determined. Clinical correlation isessential. Performed By: #### L 100.0100, L500.4050 ####[facility] [address] [place], [address] ECRCL 65.20 ml/min Normal [facility] Comment on above: Performed By: #### L 100.0100, L500.4050 ####[facility] [address] [place], [address] EST GFR - AA 85 mL/min Normal >60 [facility] Comment on above: Result Comment: Afri can Nepalese GFR Calc Performed By: #### L 100.0100, L500.4050 ####[facility] [address] [place], [address] GAP 7 Normal 5-15 [facility] Comment on above: Performed By: #### L 100.0100, L500.4050 ####[facility] [address] [place], [address] GFR/1.73 sq M.predicted among non-blacks MDRD (S/P/Bld) [Vol rate/Area] 70 mL/min/{1.73_m2} Normal >60 [facility] Comment on above: Result Comment: Non- GFR Calc Performed By: #### L 100.0100, L500.4050 ####[facility] [address] [place], [address] Globulin (S) [Mass/Vol] 3.0 g/dL Normal 2.2-4.2 [facility] Comment on above: Performed By: #### L 100.0100, L500.4050 ####[facility] [address] [place], [address] Glucose [Mass/Vol] 137 mg/dL High 74-106 [facility] Comment on above: Result Comment: Fast ing Glucose result greater than or equal to 126 mg/dLsuggests DIABETES MELLITUS per A.D.A. criteria. Performed By: #### L 100.0100, L500.4050 ####[facility] [address] [place], [address] Potassium [Moles/Vol] 4.0 mmol/L Normal 3.5-5.1 [facility] Comment on above: Performed By: #### L 100.0100, L500.4050 ####[facility] [address] [place], [address] Sodium [Moles/Vol] 142 mmol/L Normal 136-145 [facility] Comment on above: Performed By: #### L 100.0100, L500.4050 ####[facility] [address] [place], [address] T PROT 6.3 g/dL Low 6.4-8.2 [facility] Comment on above: Performed By: #### L 100.0100, L500.4050 ####[facility] [address] [place], [address] Urea nitrogen [Mass/Vol] 19 mg/dL High 7-18 [facility] Comment on above: Performed By: #### L 100.0100, L500.4050 ####[facility] [address] [place], [address] Estimated glomerular filtrat ion rate (GFR) AmericanOrdered By: Jenn Perez on 11-09-2024 Estimated GFR (MDRD) Amer 85 mL/min >60 [facility] Comment on above: GFR Calc Gamma globulin Elph [Mass/Vo l]Ordered By: Zayda Hanson on 11-09-2024 Gamma Globulins (ELINA) 0.3 g/dL Low 0.4-1.8 [facility] [facility] IgA [Mass/Vol]Ordered By: Keron Hanson on 11-09-2024 Immunoglobulin A 21 mg/dL Low 61-437 [facility] Comment on above: Result confirmed on concentration. IgG [Mass/Vol]Ordered By: Keron Hanson on 11-09-2024 Immunoglobulin G 461 mg/dL Low 603-1613 [facility] Immunoglobulin M measurement Ordered By: Zayda Hanson on 11-09-2024 Immunoglobulin M 14 mg/dL Low 20-172 [facility] Comment on above: Result confirmed on concentration. Immunoglobulin light chains. kappa [Mass/Vol]Ordered By: Zayda Hanson on 11-09-2024 Free [place] Light Chains, Quant 6.0 mg/L 3.3-19.4 [facility] Immunoglobulin light chains. kappa/Immunoglobulin light chains.lambda (S) [Mass ratio]Ordered By: Zayda Hanson on 11-09-2024 Free [place]/Lambda Light Chain Ratio 2.22 High 0.26-1.65 [facility] Comment on above: Performed at: [place] [id number] Director: Micky Arreola PhD, Phone: [phone] Interpretation IEP [Interp]O rdered By: Zayda Hanson on 11-09-2024 Immunofixation Screen Comment High . [facility] Comment on above: Immunofixation shows IgG monoclonal protein with kappalight chain specificity. PLEASE NOTE: Samples from patients receiving DARZALEX(R)(daratumumab) or SARCLISA(R)(isatuximab-irfc) treatmentcan appear as an "IgG kappa" and mask a complete response(CR). If this patient is receiving these therapies, thisIFE assay interference can be removed by ordering testnumber [id number]-"Immunofixation, Daratumumab-Specific,Serum" or [id number]-"Immunofixation, Isatuximab-Specific,Serum" and submitting a new sample for testing or bycalling the lab to add this test to the current sample. Lambda free light chain giovanny urementOrdered By: Zayda Hanson on 11-09-2024 Free Lambda Light Chains, Quant 2.7 mg/L Low 5.7-26.3 [facility] Oncology Visit Reporton 10-28 Oncology Visit Report Normal [facility] Protein Fractions Immunofixa tion Johnny [Interp]Ordered By: Zayda Hanson on 11-09-2024 M-Raúl (ELINA) 0.1 g/dL High Not Observed [facility] Serum albumin/globulin ratio Ordered By: Zayda Hanson on 11-09-2024 Albumin/Globulin (ELINA) 1.7 0.7-1.7 [facility] Serum or plasma protein giovanny urement (mass/volume)Ordered By: Zayda Hanson on 11-09-2024 Protein [Mass/Vol] 5.6 g/dL Low 6.0-8.5 [facility] Plastic Surgery Visit Report on 11-02-2024 Plastic Surgery Visit Report Normal [facility] Bilirubin Test strip Ql (U)O rdered By: Blade Milner on 10-20-2024 Bilirubin Ql (U) Negative Negative [facility] Glucose Ql (U)Ordered By: Zacarias Milner on 10-20-2024 Urine Glucose (UA) Normal mg/dl Normal [facility] Ketones Test strip Ql (U)Ord ered By: Blade Milner on 10-20-2024 Ketones Ql (U) Negative Negative [facility] Nitrite Test strip Ql (U)Ord ered By: Blade Milner on 10-20-2024 Nitrite Ql (U) Negative Negative [facility] Protein Test strip Ql (U)Ord ered By: Blade Milner on 10-20-2024 Protein Ql (U) 30 mg/dl High Negative [facility] Urine blood detectionOrdered By: Blade Milner on 10-20-2024 Urine Occult Blood 250 /ul High Negative [facility] Urine clarityOrdered By: Nabor Milner on 10-20-2024 Clarity (U) Sl Cloudy Clear [facility] Urine color determinationOrd ered By: Blade Milner on 10-20-2024 Color (U) Yellow Yellow [facility] Urine cultureOrdered By: Nabor Milner on 10-20-2024 Bacteria identified Cx Nom (U) Pseudomonas aeruginosa Abnormal [facility] Urine glucose detectionOrder ed By: Blade Milner on 10-20-2024 Glucose Ql (U) Normal mg/dl Normal [facility] Urine leukocyte esterase det ection by dipstickOrdered By: Blade Milner on 10-20-2024 Leukocyte esterase Test strip Ql (U) 500 /ul High Negative [facility] Urine pHOrdered By: Blade aleman on 10-20-2024 pH (U) 7.0 [pH] 5.0 - 8.0 [facility] Urine specific gravity measu rementOrdered By: Blade Milner on 10-20-2024 Specific gravity (U) [Rel density] 1.010 1.002-1.030 [facility] Urine urobilinogen measureme ntOrdered By: Blade Milner on 10-20-2024 Urobilinogen Ql (U) Normal mg/dl Normal [facility] Urobilinogen Ql (U)Ordered B y: Blade Milner on 10-20-2024 Urine Urobilinogen Normal mg/dl Normal [facility] ELINA + Protein Elect, Serumon 10-17-2024 Albumin [Mass/Vol] 3.9 g/dL Normal 2.9-4.4 [facility] Comment on above: Order Comment: OPAL OWN Performed By: #### L 501.5200, L3100.3425, L501.2300, L3130.0010 ####[facility] [address] [place], [address] Albumin/Globulin [Mass ratio] 2.3 {ratio} High 0.7-1.7 [facility] Comment on above: Order Comment: OPAL OWN Performed By: #### L 501.5200, L3100.3425, L501.2300, L3130.0010 ####[facility] [address] [place], [address] XLPJZ-5-IPBE 0.1 g/dL Normal 0.0-0.4 [facility] Comment on above: Order Comment: NUNSAURAV OWN Performed By: #### L 501.5200, L3100.3425, L501.2300, L3130.0010 ####[facility] [address] [place], [address] RWCCT-3-GRAN 0.7 g/dL Normal 0.4-1.0 [facility] Comment on above: Order Comment: NUNKN OWN Performed By: #### L 501.5200, L3100.3425, L501.2300, L3130.0010 ####[facility] [address] [place], [address] BETA GLOBULIN 0.7 g/dL Normal 0.7-1.3 [facility] Comment on above: Order Comment: NUNKN OWN Performed By: #### L 501.5200, L3100.3425, L501.2300, L3130.0010 ####[facility] [address] [place], [address] GAMMA GLOBULIN 0.3 g/dL Low 0.4-1.8 [facility] Comment on above: Order Comment: NUNKN OWN Performed By: #### L 501.5200, L3100.3425, L501.2300, L3130.0010 ####[facility] [address] [place], [address] Globulin (S) [Mass/Vol] 1.7 g/dL Abnormal 2.2-3.9 [facility] Comment on above: Order Comment: NUNKN OWN Performed By: #### L 501.5200, L3100.3425, L501.2300, L3130.0010 ####[facility] [address] [place], [address] ELINA RESULT,S Comment Abnormal . [facility] Comment on above: Order Comment: NUNKN OWN Result Comment: Immu nofixation shows IgG monoclonal protein with kappalight chain specificity. PLEASE NOTE: Samples from patients receiving DARZALEX(R)(daratumumab) or SARCLISA(R)(isatuximab-[facility]) treatmentcan appear as an "IgG kappa" and mask a complete response(CR). If this patient is receiving these therapies, thisIFE assay interference can be removed by ordering testnumber [id number]-"Immunofixation, Daratumumab-Specific,Serum" or [id number]-"Immunofixation, Isatuximab-Specific,Serum" and submitting a new sample for testing or bycalling the lab to add this test to the current sample. Performed By: #### L 501.5200, L3100.3425, L501.2300, L3130.0010 ####[facility] [address] [place], [address] IMMUNOGLOB A QN 22 mg/dL Low 61-437 [facility] Comment on above: Order Comment: NUNKN OWN Result Comment: Resu lt confirmed on concentration. Performed By: #### L 501.5200, L3100.3425, L501.2300, L3130.0010 ####[facility] [address] [place], [address] IMMUNOGLOB G QN 431 mg/dL Low 603-1613 [facility] Comment on above: Order Comment: OPAL OWN Performed By: #### L 501.5200, L3100.3425, L501.2300, L3130.0010 ####[facility] [address] [place], [address] IMMUNOGLOB M QN 14 mg/dL Low 20-172 [facility] Comment on above: Order Comment: NUNKN OWN Result Comment: Resu lt confirmed on concentration. Performed By: #### L 501.5200, L3100.3425, L501.2300, L3130.0010 ####[facility] [address] [place], [address] M-Raúl Comment: Normal Not Observed [facility] Comment on above: Order Comment: NUNKN OWN Result Comment: Due to the small quantity of monoclonal protein, unable toquantitate the M-spike. Performed By: #### L 501.5200, L3100.3425, L501.2300, L3130.0010 ####[facility] [address] [place], [address] NOTE: Comment Normal . [facility] Comment on above: Order Comment: NUNKN OWN Result Comment: Prot ein electrophoresis scan will follow via computer,mail, or forging die sinker delivery. Performed By: #### L 501.5200, L3100.3425, L501.2300, L3130.0010 ####[facility] [address] [place], [address] Protein [Mass/Vol] 5.6 g/dL Low 6.0-8.5 [facility] Comment on above: Order Comment: NUNKN OWN Performed By: #### L 501.5200, L3100.3425, L501.2300, L3130.0010 ####[facility] [address] [place], [address] [place] Lambda Light Chainson 10-17-2024 FR KAPPA LT CHN 6.1 mg/L Normal 3.3-19.4 [facility] Comment on above: Order Comment: NUNKN OWN Performed By: #### L 501.5200, L3100.3425, L501.2300, L3130.0010 ####[facility] [address] [place], [address] FR LAMBDA LT CH 3.3 mg/L Abnormal 5.7-26.3 [facility] Comment on above: Order Comment: NUNKN OWN Performed By: #### L 501.5200, L3100.3425, L501.2300, L3130.0010 ####[facility] [address] [place], [address] KAPPA/LAMBDA % 1.85 Abnormal 0.26-1.65 [facility] Comment on above: Order Comment: NUNKN OWN Result Comment: Perf ormed at: [facility] [address] [id number] Director: Micky Arreola PhD, Phone: [phone] Performed By: #### L 501.5200, L3100.3425, L501.2300, L3130.0010 ####[facility] [address] [place], [address] CBC W/Diff, Automatedon - Absolute Lymph 0.53 X10 3/uL Low 0.83-4.51 [facility] Comment on above: Performed By: #### L 100.0100, L500.4050 ####[facility] [address] [place], [address] Absolute Neut 2.4 X10 3/uL Normal 2.0-7.7 [facility] Comment on above: Performed By: #### L 100.0100, L500.4050 ####[facility] [address] [place], [address] Basophils/100 WBC (Bld) 1.7 % High 0-1 [facility] Comment on above: Performed By: #### L 100.0100, L500.4050 ####[facility] [address] [place], [address] Eosinophils/100 WBC (Bld) 4.4 % Normal 0-5 [facility] Comment on above: Performed By: #### L 100.0100, L500.4050 ####[facility] [address] [place], [address] Erythrocyte distribution width (RBC) [Ratio] 15.4 % High 11.6-14.6 [facility] Comment on above: Performed By: #### L 100.0100, L500.4050 ####[facility] [address] [place], [address] Hematocrit (Bld) [Volume fraction] 38.5 % Low 40-54 [facility] Comment on above: Performed By: #### L 100.0100, L500.4050 ####[facility] [address] [place], [address] Hemoglobin (Bld) [Mass/Vol] 12.2 g/dL Low 13.0-16.5 [facility] Comment on above: Performed By: #### L 100.0100, L500.4050 ####[facility] [address] [place], [address] IG% 0.600 Normal 0.0-0.9 [facility] Comment on above: Result Comment: IG% - Immature Granulocytes (promyelocytes, myelocytes andmetamyelocytes) > 1% indicates that a LEFT SHIFT is Present. Performed By: #### L 100.0100, L500.4050 ####[facility] [address] [place], [address] Lymphocytes/100 WBC (Bld) 14.6 % Low 19-41 [facility] Comment on above: Performed By: #### L 100.0100, L500.4050 ####[facility] [address] [place], [address] MCH (RBC) [Entitic mass] 28.2 pg Normal 27.0-32.0 [facility] Comment on above: Performed By: #### L 100.0100, L500.4050 ####[facility] [address] [place], [address] MCHC (RBC) [Mass/Vol] 31.7 g/dL Low 32-36 [facility] Comment on above: Performed By: #### L 100.0100, L500.4050 ####[facility] [address] [place], [address] MCV (RBC) [Entitic vol] 89.1 fL Normal 80-94 [facility] Comment on above: Performed By: #### L 100.0100, L500.4050 ####[facility] [address] [place], [address] Monocytes/100 WBC (Bld) 12.4 % High 0-10 [facility] Comment on above: Performed By: #### L 100.0100, L500.4050 ####[facility] [address] [place], [address] Neutrophils/100 WBC (Bld) 66.3 % Normal 47-70 [facility] Comment on above: Performed By: #### L 100.0100, L500.4050 ####[facility] [address] [place], [address] Nucleated RBC (Bld) [#/Vol] 0 10*3/uL Normal 0-5 [facility] Comment on above: Performed By: #### L 100.0100, L500.4050 ####[facility] [address] [place], [address] Platelet mean volume (Bld) [Entitic vol] 10.3 fL Normal 6.2-12.0 [facility] Comment on above: Performed By: #### L 100.0100, L500.4050 ####[facility] [address] [place], [address] Platelets (Bld) [#/Vol] 164 10*3/uL Normal 150-450 [facility] Comment on above: Performed By: #### L 100.0100, L500.4050 ####[facility] [address] [place], [address] RBC (Bld) [#/Vol] 4.32 10*6/uL Low 4.6-6.2 [facility] Comment on above: Performed By: #### L 100.0100, L500.4050 ####[facility] [address] [place], [address] RDW SD 50.1 fl High 35.1-43.9 [facility] Comment on above: Performed By: #### L 100.0100, L500.4050 ####[facility] [address] [place], [address] WBC (Bld) [#/Vol] 3.6 10*3/uL Low 4.4-11.0 [facility] Comment on above: Performed By: #### L 100.0100, L500.4050 ####[facility] [address] [place], [address] Comprehensive Metabolic Prof ilon 10-12-2024 Albumin [Mass/Vol] 3.4 g/dL Normal 3.2-5.0 [facility] Comment on above: Performed By: #### L 100.0100, L500.4050 ####[facility] [address] [place], [address] Albumin/Globulin [Mass ratio] 1.3 {ratio} Normal 0.9-2.4 [facility] Comment on above: Performed By: #### L 100.0100, L500.4050 ####[facility] [address] [place], [address] ALK P 63 U/L Normal 45-117 [facility] Comment on above: Performed By: #### L 100.0100, L500.4050 ####[facility] [address] [place], [address] ALT [Catalytic activity/Vol] 15 U/L Low 16-61 [facility] Comment on above: Performed By: #### L 100.0100, L500.4050 ####[facility] [address] [place], [address] AST [Catalytic activity/Vol] 10 U/L Low 15-37 [facility] Comment on above: Performed By: #### L 100.0100, L500.4050 ####[facility] [address] [place], [address] Bilirubin [Mass/Vol] 0.30 mg/dL Normal 0.20-1.00 [facility] Comment on above: Result Comment: For patients on eltrombopag therapy, use of Dimension [place] TBIL is not recommended. Performed By: #### L 100.0100, L500.4050 ####[facility] [address] [place], [address] BUN/CRE 16.8 RATIO Normal 10-20 [facility] Comment on above: Performed By: #### L 100.0100, L500.4050 ####[facility] [address] [place], [address] CA,Total 9.4 mg/dL Normal 8.5-10.1 [facility] Comment on above: Performed By: #### L 100.0100, L500.4050 ####[facility] [address] [place], [address] Chloride [Moles/Vol] 104 mmol/L Normal 98-107 [facility] Comment on above: Performed By: #### L 100.0100, L500.4050 ####[facility] [address] [place], [address] CO2 [Moles/Vol] 29.0 mmol/L Normal 21.0-32.0 [facility] Comment on above: Performed By: #### L 100.0100, L500.4050 ####[facility] [address] [place], [address] Creatinine [Mass/Vol] 1.07 mg/dL Normal 0.70-1.30 [facility] Comment on above: Result Comment: The validity of the calculated GFR GFRAA in patients over70 years has not been determined. Clinical correlation isessential. Performed By: #### L 100.0100, L500.4050 ####[facility] [address] [place], [address] ECRCL 66.25 ml/min Normal [facility] Comment on above: Performed By: #### L 100.0100, L500.4050 ####[facility] [address] [place], [address] EST GFR - AA 89 mL/min Normal >60 [facility] Comment on above: Result Comment: Afri can Nepalese GFR Calc Performed By: #### L 100.0100, L500.4050 ####[facility] [address] [place], [address] GAP 7 Normal 5-15 [facility] Comment on above: Performed By: #### L 100.0100, L500.4050 ####[facility] [address] [place], [address] GFR/1.73 sq M.predicted among non-blacks MDRD (S/P/Bld) [Vol rate/Area] 73 mL/min/{1.73_m2} Normal >60 [facility] Comment on above: Result Comment: Non- GFR Calc Performed By: #### L 100.0100, L500.4050 ####[facility] [address] [place], [address] Globulin (S) [Mass/Vol] 2.7 g/dL Normal 2.2-4.2 [facility] Comment on above: Performed By: #### L 100.0100, L500.4050 ####[facility] [address] [place], [address] Glucose [Mass/Vol] 156 mg/dL High 74-106 [facility] Comment on above: Result Comment: Fast ing Glucose result greater than or equal to 126 mg/dLsuggests DIABETES MELLITUS per A.D.A. criteria. Performed By: #### L 100.0100, L500.4050 ####[facility] [address] [place], [address] Potassium [Moles/Vol] 3.9 mmol/L Normal 3.5-5.1 [facility] Comment on above: Performed By: #### L 100.0100, L500.4050 ####[facility] [address] [place], [address] Sodium [Moles/Vol] 141 mmol/L Normal 136-145 [facility] Comment on above: Performed By: #### L 100.0100, L500.4050 ####[facility] [address] [place], [address] T PROT 6.1 g/dL Low 6.4-8.2 [facility] Comment on above: Performed By: #### L 100.0100, L500.4050 ####[facility] [address] [place], [address] Urea nitrogen [Mass/Vol] 18 mg/dL Normal 7-18 [facility] Comment on above: Performed By: #### L 100.0100, L500.4050 ####[facility] [address] [place], [address] Magnesiumon 10-12-2024 Magnesium [Mass/Vol] 1.5 mg/dL Low 1.6-2.6 [facility] Comment on above: Performed By: #### L 501.5200, L3100.3425, L501.2300, L3130.0010 ####[facility] [address] [place], [address] Magnesium measurementOrdered By: Jenn Perez on 10-12-2024 Magnesium [Mass/Vol] 1.5 mg/dL Low 1.6-2.6 [facility] Oncology Visit Reporton 09-27 Oncology Visit Report Normal [facility] Phosphoruson 10-12-2024 Phosphate [Mass/Vol] 3.4 mg/dL Normal 2.5-4.9 [facility] Comment on above: Performed By: #### L 501.5200, L3100.3425, L501.2300, L3130.0010 ####[facility] [address] [place], [place], [address] Phosphorus measurementOrdere d By: Jenn Perez on 10-12-2024 Phosphorus Level 3.4 mg/dL 2.5-4.9 [facility] CNPNon 10-06-2024 CNPN Telephone (AKURFL) ARMAND BARRON ([id number]) 1955 M Date Time Provider Department 10/06/24 RIC SOUZA During your visit today, we recorded the following information about you: Kira Cummings 10/06/2024 1:56 PM Signed Faxed referral For James Souza For Vanegas care/removal of vanegas (almost 2 years use) LM to [place] the health care person to call back to schedule Pt is [facility] Referral scanned Thanks Anupama Rodriguez 10/06/2024 4:36 PM Matt Hicks returned the call, patient has been scheduled for 11/10/2024 at 10:00a.m. with Dr. Souza in [place]. Fang Rodriguez October 06, 2024 4:36 PM Allergies As of Date: 10/06/2024 (Not on File) Date Reviewed: Never Reviewed Reason for Visit: Appointment [186] Problem List As Of Date: 10/06/2024 (None) Encounter Status:Closed by KIRA CUMMINGS on 10/06/24 Normal [facility] Urine Cultureon 10-04-2024 URC Normal [facility] Comment on above: Performed By: #### M 100.1905 ####[facility] [address] [place], [address] Bilirubin Test strip Ql (U)O rdered By: Arturo Snyder on 10-02-2024 Bilirubin Ql (U) Negative Negative [facility] Emergency Department Summary on 10-02-2024 Emergency Department Summary Normal [facility] Epithelial cells.squamous LM Ql (Urine sed)Ordered By: Arturo Snyder on 10-02-2024 Epithelial cells.squamous LM.HPF (Urine sed) [#/Area] 0 /[HPF] 0-5 [facility] Glucose Ql (U)Ordered By: Julio Snyder on 10-02-2024 Urine Glucose (UA) Normal mg/dl Normal [facility] Ketones Test strip Ql (U)Ord ered By: Arturo Snyder on 10-02-2024 Ketones Ql (U) Negative Negative [facility] Microscopic analysis of urin e for red blood cells (RBC)Ordered By: Arturo Snyder on 10-02-2024 Urine RBC 0-5 SEEN /hpf 0-5 [facility] Mucus LM Ql (Urine sed)Order ed By: Arturo Snyder on 10-02-2024 Mucus Ql (Urine sed) 0 SEEN /hpf [facility] Nitrite Test strip Ql (U)Ord ered By: Arturo Snyder on 10-02-2024 Nitrite Ql (U) Positive High Negative [facility] Protein Test strip Ql (U)Ord ered By: Arturo Snyder on 10-02-2024 Protein Ql (U) 15 mg/dl High Negative [facility] Urinalysis, Completeon 10-02 BACTERIA 1+ /hpf Normal None Seen [facility] Comment on above: Order Comment: ASHWINI TER SPECIMEN Performed By: #### L 400.0001 ####[facility] [address] [place], [place], [id number] RBC 0-5 SEEN Normal 0-5 [facility] Comment on above: Order Comment: ASHWINI TER SPECIMEN Performed By: #### L 400.0001 ####[facility] [address] [place], [place], [id number] WBC 10-25 SEEN Normal 0-5 [facility] Comment on above: Order Comment: ASHWINI TER SPECIMEN Performed By: #### L 400.0001 ####[facility] [address] [place], [address] EPI,SQUAMOUS 0 SEEN Normal 0-5 [facility] Comment on above: Order Comment: ASHWINI TER SPECIMEN Performed By: #### L 400.0001 ####[facility] [address] [place], [place], [id number] Mucus Ql (Urine sed) 0 SEEN Normal [facility] Comment on above: Order Comment: ASHWIIN TER SPECIMEN Performed By: #### L 400.0001 ####[facility] [address] [place], [place], [address] Urine blood detectionOrdered By: Arturo Snyder on 10-02-2024 Urine Occult Blood 10 /ul High Negative [facility] Urine clarityOrdered By: Yao Snyder on 10-02-2024 Clarity (U) Sl. Cloudy Clear [facility] Urine color determinationOrd ered By: Arturo Snyder on 10-02-2024 Color (U) Yellow Yellow [facility] Urine cultureOrdered By: Yao Snyder on 10-02-2024 Bacteria identified Cx Nom (U) Providencia rettgeri Abnormal [facility] Urine leukocyte esterase det ection by dipstickOrdered By: Arturo Snyder on 10-02-2024 Leukocyte esterase Test strip Ql (U) 500 /ul High Negative [facility] Urine pHOrdered By: Arturo Snyder on 10-02-2024 pH (U) 6.5 [pH] 5.0 - 8.0 [facility] Urine sediment bacteria coun t by microscopy (number/high power field)Ordered By: Arturo Snyder on 10-02-2024 Bacteria LM.HPF (Urine sed) [#/Area] 1 /[HPF] None Seen [facility] Urine specific gravity measu rementOrdered By: Arturo Snyder on 10-02-2024 Specific gravity (U) [Rel density] 1.015 1.002-1.030 [facility] Urobilinogen Ql (U)Ordered B y: Arturo Snyder on 10-02-2024 Urine Urobilinogen Normal mg/dl Normal [facility] White blood cell countOrdere d By: Arturo Snyder on 10-02-2024 Urine WBC 10-25 SEEN /hpf 0-5 [facility] ELINA + Protein Elect, Serumon 09-18-2024 Albumin [Mass/Vol] 3.3 g/dL Normal 2.9-4.4 [facility] Comment on above: Order Comment: NUNKN OWN Performed By: #### L 500.4050, L100.0100, L3100.3425, L3130.0010 ####[facility] [address] [place], [address] Albumin/Globulin [Mass ratio] 1.4 {ratio} Normal 0.7-1.7 [facility] Comment on above: Order Comment: NUNKN OWN Performed By: #### L 500.4050, L100.0100, L3100.3425, L3130.0010 ####[facility] [address] [place], [address] GUHKA-9-TDVO 0.2 g/dL Normal 0.0-0.4 [facility] Comment on above: Order Comment: NUNKN OWN Performed By: #### L 500.4050, L100.0100, L3100.3425, L3130.0010 ####[facility] [address] [place], [address] NSJWX-9-GYDS 0.9 g/dL Normal 0.4-1.0 [facility] Comment on above: Order Comment: NUNKN OWN Performed By: #### L 500.4050, L100.0100, L3100.3425, L3130.0010 ####[facility] [address] [place], [address] BETA GLOBULIN 0.9 g/dL Normal 0.7-1.3 [facility] Comment on above: Order Comment: NUNKN OWN Performed By: #### L 500.4050, L100.0100, L3100.3425, L3130.0010 ####[facility] [address] [place], [address] GAMMA GLOBULIN 0.4 g/dL Normal 0.4-1.8 [facility] Comment on above: Order Comment: NUNKN OWN Performed By: #### L 500.4050, L100.0100, L3100.3425, L3130.0010 ####[facility] [address] [place], [address] Globulin (S) [Mass/Vol] 2.5 g/dL Normal 2.2-3.9 [facility] Comment on above: Order Comment: NUNKN OWN Performed By: #### L 500.4050, L100.0100, L3100.3425, L3130.0010 ####[facility] [address] [place], [address] ELINA RESULT,S Comment: Normal . [facility] Comment on above: Order Comment: NUNKN OWN Result Comment: Pres ence of monoclonal protein is unclear at this time. Suggestrepeat in 3 to 6 months if clinically indicated. Performed By: #### L 500.4050, L100.0100, L3100.3425, L3130.0010 ####[facility] [address] [place], [address] IMMUNOGLOB A QN 21 mg/dL Low 61-437 [facility] Comment on above: Order Comment: NUNKN OWN Result Comment: Resu lt confirmed on concentration. Performed By: #### L 500.4050, L100.0100, L3100.3425, L3130.0010 ####[facility] [address] [place], [address] IMMUNOGLOB G QN 419 mg/dL Low 603-1613 [facility] Comment on above: Order Comment: NUNKN OWN Performed By: #### L 500.4050, L100.0100, L3100.3425, L3130.0010 ####[facility] [address] [place], [address] IMMUNOGLOB M QN 11 mg/dL Low 20-172 [facility] Comment on above: Order Comment: NUNKN OWN Result Comment: Resu lt confirmed on concentration. Performed By: #### L 500.4050, L100.0100, L3100.3425, L3130.0010 ####[facility] [address] [place], [address] M-Raúl Not Observed Normal Not Observed [facility] Comment on above: Order Comment: NUNKN OWN Performed By: #### L 500.4050, L100.0100, L3100.3425, L3130.0010 ####[facility] [address] [place], [address] NOTE: Comment Normal . [facility] Comment on above: Order Comment: NUNKN OWN Result Comment: Prot ein electrophoresis scan will follow via computer,mail, or forging die sinker delivery. Performed By: #### L 500.4050, L100.0100, L3100.3425, L3130.0010 ####[facility] [address] [place], [address] Protein [Mass/Vol] 5.8 g/dL Low 6.0-8.5 [facility] Comment on above: Order Comment: NUNKN OWN Performed By: #### L 500.4050, L100.0100, L3100.3425, L3130.0010 ####[facility] [address] [place], [address] [place] Lambda Light Chainson 09-18-2024 FR KAPPA LT CHN 7.0 mg/L Normal 3.3-19.4 [facility] Comment on above: Order Comment: NUNKN OWN Performed By: #### L 500.4050, L100.0100, L3100.3425, L3130.0010 ####[facility] [address] [place], [address] FR LAMBDA LT CH 3.7 mg/L Abnormal 5.7-26.3 [facility] Comment on above: Order Comment: NUSALO OWN Performed By: #### L 500.4050, L100.0100, L3100.3425, L3130.0010 ####[facility] [address] [place], [address] KAPPA/LAMBDA % 1.89 Abnormal 0.26-1.65 [facility] Comment on above: Order Comment: NUNKN OWN Result Comment: Perf ormed at: [facility] [id number] [place], [place] [id number] Director: Micky Arreola PhD, Phone: [phone] Performed By: #### L 500.4050, L100.0100, L3100.3425, L3130.0010 ####[facility] [address] [place], [address] CBC W/Diff, Automatedon 12- Absolute Neut Normal 2.0-7.7 [facility] Comment on above: Result Comment: Canc elled via OM: Physician Authorized Performed By: #### L 100.0100, L500.4050 ####[facility] [address] [place], [address] HCT Normal 40-54 [facility] Comment on above: Result Comment: Canc elled via OM: Physician Authorized Performed By: #### L 100.0100, L500.4050 ####[facility] [address] [place], [address] HGB Normal 13.0-16.5 [facility] Comment on above: Result Comment: Canc elled via OM: Physician Authorized Performed By: #### L 100.0100, L500.4050 ####[facility] [address] [place], [address] MCH Normal 27.0-32.0 [facility] Comment on above: Result Comment: Canc elled via OM: Physician Authorized Performed By: #### L 100.0100, L500.4050 ####[facility] [address] [place], [address] MCHC Normal 32-36 [facility] Comment on above: Result Comment: Canc elled via OM: Physician Authorized Performed By: #### L 100.0100, L500.4050 ####[facility] [address] [place], [address] MCV Normal 80-94 [facility] Comment on above: Result Comment: Canc elled via OM: Physician Authorized Performed By: #### L 100.0100, L500.4050 ####[facility] [address] [place], [address] NEUT% Normal 47-70 [facility] Comment on above: Result Comment: Canc elled via OM: Physician Authorized Performed By: #### L 100.0100, L500.4050 ####[facility] [address] [place], [address] PLT Normal 150-450 [facility] Comment on above: Result Comment: Canc elled via OM: Physician Authorized Performed By: #### L 100.0100, L500.4050 ####[facility] [address] [place], [address] RBC Normal 4.6-6.2 [facility] Comment on above: Result Comment: Canc elled via OM: Physician Authorized Performed By: #### L 100.0100, L500.4050 ####[facility] [address] [place], [address] RDW CV Normal 11.6-14.6 [facility] Comment on above: Result Comment: Canc elled via OM: Physician Authorized Performed By: #### L 100.0100, L500.4050 ####[facility] [address] [place], [address] RDW SD Normal 35.1-43.9 [facility] Comment on above: Result Comment: Canc elled via OM: Physician Authorized Performed By: #### L 100.0100, L500.4050 ####[facility] [address] [place], [address] WBC Normal 4.4-11.0 [facility] Comment on above: Result Comment: Canc elled via OM: Physician Authorized Performed By: #### L 100.0100, L500.4050 ####[facility] [address] [place], [address] Comprehensive Metabolic Prof ilon 09-14-2024 ALB Normal 3.2-5.0 [facility] Comment on above: Result Comment: Canc elled via OM: Physician Authorized Performed By: #### L 100.0100, L500.4050 ####[facility] [address] [place], [address] ALK P Normal 45-117 [facility] Comment on above: Result Comment: Canc elled via OM: Physician Authorized Performed By: #### L 100.0100, L500.4050 ####[facility] [address] [place], [address] ALT Normal 16-61 [facility] Comment on above: Result Comment: Canc elled via OM: Physician Authorized Performed By: #### L 100.0100, L500.4050 ####[facility] [address] [place], [address] AST Normal 15-37 [facility] Comment on above: Result Comment: Canc elled via OM: Physician Authorized Performed By: #### L 100.0100, L500.4050 ####[facility] [address] [place], [address] BUN Normal 7-18 [facility] Comment on above: Result Comment: Canc elled via OM: Physician Authorized Performed By: #### L 100.0100, L500.4050 ####[facility] [address] [place], [address] BUN/CRE Normal 10-20 [facility] Comment on above: Result Comment: Canc elled via OM: Physician Authorized Performed By: #### L 100.0100, L500.4050 ####[facility] [address] [place], [address] CA,Total Normal 8.5-10.1 [facility] Comment on above: Result Comment: Canc elled via OM: Physician Authorized Performed By: #### L 100.0100, L500.4050 ####[facility] [address] [place], [address] CL Normal 98-107 [facility] Comment on above: Result Comment: Canc elled via OM: Physician Authorized Performed By: #### L 100.0100, L500.4050 ####[facility] [address] [place], [address] CO2 Normal 21.0-32.0 [facility] Comment on above: Result Comment: Canc elled via OM: Physician Authorized Performed By: #### L 100.0100, L500.4050 ####[facility] [address] [place], [address] CREAT,SERUM Normal 0.70-1.30 [facility] Comment on above: Result Comment: Canc elled via OM: Physician Authorized Performed By: #### L 100.0100, L500.4050 ####[facility] [address] [place], [address] EST GFR Normal >60 [facility] Comment on above: Result Comment: Canc elled via OM: Physician Authorized Performed By: #### L 100.0100, L500.4050 ####[facility] [address] [place], [address] EST GFR - AA Normal >60 [facility] Comment on above: Result Comment: Canc elled via OM: Physician Authorized Performed By: #### L 100.0100, L500.4050 ####[facility] [address] [place], [address] GAP Normal 5-15 [facility] Comment on above: Result Comment: Canc elled via OM: Physician Authorized Performed By: #### L 100.0100, L500.4050 ####[facility] [address] [place], [address] GLU Normal 74-106 [facility] Comment on above: Result Comment: Canc elled via OM: Physician Authorized Performed By: #### L 100.0100, L500.4050 ####[facility] [address] [place], [address] Potassium Normal 3.5-5.1 [facility] Comment on above: Result Comment: Canc elled via OM: Physician Authorized Performed By: #### L 100.0100, L500.4050 ####[facility] [address] [place], [address] T BILI Normal 0.20-1.00 [facility] Comment on above: Result Comment: Canc elled via OM: Physician Authorized Performed By: #### L 100.0100, L500.4050 ####[facility] [address] [place], [address] T PROT Normal 6.4-8.2 [facility] Comment on above: Result Comment: Canc elled via OM: Physician Authorized Performed By: #### L 100.0100, L500.4050 ####[facility] [address] [place], [address] Comprehensive Metabolic Profil Normal 136-145 [facility] Comment on above: Result Comment: Canc elled via OM: Physician Authorized Performed By: #### L 100.0100, L500.4050 ####[facility] [address] [place], [address] CBC W/Diff, Automatedon 08-27 Absolute Lymph 0.52 X10 3/uL Low 0.83-4.51 [facility] Comment on above: Performed By: #### L 500.4050, L100.0100, L3100.3425, L3130.0010 ####[facility] [address] [place], [address] Absolute Neut 2.8 X10 3/uL Normal 2.0-7.7 [facility] Comment on above: Performed By: #### L 500.4050, L100.0100, L3100.3425, L3130.0010 ####[facility] [address] [place], [address] Basophils/100 WBC (Bld) 1.0 % Normal 0-1 [facility] Comment on above: Performed By: #### L 500.4050, L100.0100, L3100.3425, L3130.0010 ####[facility] [address] [place], [address] Eosinophils/100 WBC (Bld) 4.9 % Normal 0-5 [facility] Comment on above: Performed By: #### L 500.4050, L100.0100, L3100.3425, L3130.0010 ####[facility] [address] [place], [address] Erythrocyte distribution width (RBC) [Ratio] 14.6 % Normal 11.6-14.6 [facility] Comment on above: Performed By: #### L 500.4050, L100.0100, L3100.3425, L3130.0010 ####[facility] [address] [place], [address] Hematocrit (Bld) [Volume fraction] 37.2 % Low 40-54 [facility] Comment on above: Performed By: #### L 500.4050, L100.0100, L3100.3425, L3130.0010 ####[facility] [address] [place], [address] Hemoglobin (Bld) [Mass/Vol] 11.6 g/dL Low 13.0-16.5 [facility] Comment on above: Performed By: #### L 500.4050, L100.0100, L3100.3425, L3130.0010 ####[facility] [address] [place], [address] IG% 0.200 Normal 0.0-0.9 [facility] Comment on above: Result Comment: IG% - Immature Granulocytes (promyelocytes, myelocytes andmetamyelocytes) > 1% indicates that a LEFT SHIFT is Present. Performed By: #### L 500.4050, L100.0100, L3100.3425, L3130.0010 ####[facility] [address] [place], [address] Lymphocytes/100 WBC (Bld) 12.8 % Low 19-41 [facility] Comment on above: Performed By: #### L 500.4050, L100.0100, L3100.3425, L3130.0010 ####[facility] [address] [place], [address] MCH (RBC) [Entitic mass] 28.1 pg Normal 27.0-32.0 [facility] Comment on above: Performed By: #### L 500.4050, L100.0100, L3100.3425, L3130.0010 ####[facility] [address] [place], [address] MCHC (RBC) [Mass/Vol] 31.2 g/dL Low 32-36 [facility] Comment on above: Performed By: #### L 500.4050, L100.0100, L3100.3425, L3130.0010 ####[facility] [address] [place], [address] MCV (RBC) [Entitic vol] 90.1 fL Normal 80-94 [facility] Comment on above: Performed By: #### L 500.4050, L100.0100, L3100.3425, L3130.0010 ####[facility] [address] [place], [address] Monocytes/100 WBC (Bld) 11.8 % High 0-10 [facility] Comment on above: Performed By: #### L 500.4050, L100.0100, L3100.3425, L3130.0010 ####[facility] [address] [place], [address] Neutrophils/100 WBC (Bld) 69.3 % Normal 47-70 [facility] Comment on above: Performed By: #### L 500.4050, L100.0100, L3100.3425, L3130.0010 ####[facility] [address] [place], [address] Nucleated RBC (Bld) [#/Vol] 0 10*3/uL Normal 0-5 [facility] Comment on above: Performed By: #### L 500.4050, L100.0100, L3100.3425, L3130.0010 ####[facility] [address] [place], [address] Platelet mean volume (Bld) [Entitic vol] 10.5 fL Normal 6.2-12.0 [facility] Comment on above: Performed By: #### L 500.4050, L100.0100, L3100.3425, L3130.0010 ####[facility] [address] [place], [address] Platelets (Bld) [#/Vol] 165 10*3/uL Normal 150-450 [facility] Comment on above: Performed By: #### L 500.4050, L100.0100, L3100.3425, L3130.0010 ####[facility] [address] [place], [address] RBC (Bld) [#/Vol] 4.13 10*6/uL Low 4.6-6.2 [facility] Comment on above: Performed By: #### L 500.4050, L100.0100, L3100.3425, L3130.0010 ####[facility] [address] [place], [address] RDW SD 48.0 fl High 35.1-43.9 [facility] Comment on above: Performed By: #### L 500.4050, L100.0100, L3100.3425, L3130.0010 ####[facility] [address] [place], [address] WBC (Bld) [#/Vol] 4.1 10*3/uL Low 4.4-11.0 [facility] Comment on above: Performed By: #### L 500.4050, L100.0100, L3100.3425, L3130.0010 ####[facility] [address] [place], [address] Absolute Neut Normal 2.0-7.7 [facility] Comment on above: Result Comment: DUPL ICATE Performed By: #### L 500.4050, L100.0100 ####[facility] [address] [place], [address] HCT Normal 40-54 [facility] Comment on above: Result Comment: DUPL ICATE Performed By: #### L 500.4050, L100.0100 ####[facility] [address] [place], [address] HGB Normal 13.0-16.5 [facility] Comment on above: Result Comment: DUPL ICATE Performed By: #### L 500.4050, L100.0100 ####[facility] [address] [place], [address] MCH Normal 27.0-32.0 [facility] Comment on above: Result Comment: DUPL ICATE Performed By: #### L 500.4050, L100.0100 ####[facility] [address] [place], [address] MCHC Normal 32-36 [facility] Comment on above: Result Comment: DUPL ICATE Performed By: #### L 500.4050, L100.0100 ####[facility] [address] [place], [address] MCV Normal 80-94 [facility] Comment on above: Result Comment: DUPL ICATE Performed By: #### L 500.4050, L100.0100 ####[facility] [address] [place], [address] NEUT% Normal 47-70 [facility] Comment on above: Result Comment: DUPL ICATE Performed By: #### L 500.4050, L100.0100 ####[facility] [address] [place], [address] PLT Normal 150-450 [facility] Comment on above: Result Comment: DUPL ICATE Performed By: #### L 500.4050, L100.0100 ####[facility] [address] [place], [address] RBC Normal 4.6-6.2 [facility] Comment on above: Result Comment: DUPL ICATE Performed By: #### L 500.4050, L100.0100 ####[facility] [address] [place], [address] RDW CV Normal 11.6-14.6 [facility] Comment on above: Result Comment: DUPL ICATE Performed By: #### L 500.4050, L100.0100 ####[facility] [address] [place], [address] RDW SD Normal 35.1-43.9 [facility] Comment on above: Result Comment: DUPL ICATE Performed By: #### L 500.4050, L100.0100 ####[facility] [address] [place], [address] WBC Normal 4.4-11.0 [facility] Comment on above: Result Comment: DUPL ICATE Performed By: #### L 500.4050, L100.0100 ####[facility] [address] [place], [address] Comprehensive Metabolic Prof gaon 09-13-2024 Albumin [Mass/Vol] 3.3 g/dL Normal 3.2-5.0 [facility] Comment on above: Order Comment: UNKNO WN Performed By: #### L 500.4050, L100.0100, L3100.3425, L3130.0010 ####[facility] [address] [place], [address] Albumin/Globulin [Mass ratio] 1.1 {ratio} Normal 0.9-2.4 [facility] Comment on above: Order Comment: UNKNO WN Performed By: #### L 500.4050, L100.0100, L3100.3425, L3130.0010 ####[facility] [address] [place], [address] ALK P 52 U/L Normal 45-117 [facility] Comment on above: Order Comment: UNKNO WN Performed By: #### L 500.4050, L100.0100, L3100.3425, L3130.0010 ####[facility] [address] [place], [address] ALT [Catalytic activity/Vol] 16 U/L Normal 16-61 [facility] Comment on above: Order Comment: UNKNO WN Performed By: #### L 500.4050, L100.0100, L3100.3425, L3130.0010 ####[facility] [address] [place], [address] AST [Catalytic activity/Vol] 8 U/L Low 15-37 [facility] Comment on above: Order Comment: UNKNO WN Performed By: #### L 500.4050, L100.0100, L3100.3425, L3130.0010 ####[facility] [address] [place], [address] Bilirubin [Mass/Vol] 0.40 mg/dL Normal 0.20-1.00 [facility] Comment on above: Order Comment: UNKNO WN Result Comment: For patients on eltrombopag therapy, use of Dimension [place] TBIL is not recommended. Performed By: #### L 500.4050, L100.0100, L3100.3425, L3130.0010 ####[facility] [address] [place], [address] BUN/CRE 17.8 RATIO Normal 10-20 [facility] Comment on above: Order Comment: UNKNO WN Performed By: #### L 500.4050, L100.0100, L3100.3425, L3130.0010 ####[facility] [address] [place], [address] CA,Total 9.2 mg/dL Normal 8.5-10.1 [facility] Comment on above: Order Comment: UNKNO WN Performed By: #### L 500.4050, L100.0100, L3100.3425, L3130.0010 ####[facility] [address] [place], [address] Chloride [Moles/Vol] 105 mmol/L Normal 98-107 [facility] Comment on above: Order Comment: UNKNO WN Performed By: #### L 500.4050, L100.0100, L3100.3425, L3130.0010 ####[facility] [address] [place], [address] CO2 [Moles/Vol] 28.0 mmol/L Normal 21.0-32.0 [facility] Comment on above: Order Comment: UNKNO WN Performed By: #### L 500.4050, L100.0100, L3100.3425, L3130.0010 ####[facility] [address] [place], [address] Creatinine [Mass/Vol] 1.07 mg/dL Normal 0.70-1.30 [facility] Comment on above: Order Comment: UNKNO WN Result Comment: The validity of the calculated GFR GFRAA in patients over70 years has not been determined. Clinical correlation isessential. Performed By: #### L 500.4050, L100.0100, L3100.3425, L3130.0010 ####[facility] [address] [place], [address] ECRCL 63.90 ml/min Normal [facility] Comment on above: Order Comment: UNKNO WN Performed By: #### L 500.4050, L100.0100, L3100.3425, L3130.0010 ####[facility] [address] [place], [address] EST GFR - AA 89 mL/min Normal >60 [facility] Comment on above: Order Comment: UNKNO WN Result Comment: Afri can Nepalese GFR Calc Performed By: #### L 500.4050, L100.0100, L3100.3425, L3130.0010 ####[facility] [address] [place], [address] GAP 5 Normal 5-15 [facility] Comment on above: Order Comment: UNKNO WN Performed By: #### L 500.4050, L100.0100, L3100.3425, L3130.0010 ####[facility] [address] [place], [address] GFR/1.73 sq M.predicted among non-blacks MDRD (S/P/Bld) [Vol rate/Area] 73 mL/min/{1.73_m2} Normal >60 [facility] Comment on above: Order Comment: UNKNO WN Result Comment: Non- GFR Calc Performed By: #### L 500.4050, L100.0100, L3100.3425, L3130.0010 ####[facility] [address] [place], [address] Globulin (S) [Mass/Vol] 2.9 g/dL Normal 2.2-4.2 [facility] Comment on above: Order Comment: UNKNO WN Performed By: #### L 500.4050, L100.0100, L3100.3425, L3130.0010 ####[facility] [address] [place], [address] Glucose [Mass/Vol] 106 mg/dL Normal 74-106 [facility] Comment on above: Order Comment: UNKNO WN Result Comment: Fast ing Glucose result from 100 to 125 mg/dLsuggests IMPAIRED HOMEOSTASIS per A.D.A. criteria. Performed By: #### L 500.4050, L100.0100, L3100.3425, L3130.0010 ####[facility] [address] [place], [address] Potassium [Moles/Vol] 3.9 mmol/L Normal 3.5-5.1 [facility] Comment on above: Order Comment: UNKNO WN Performed By: #### L 500.4050, L100.0100, L3100.3425, L3130.0010 ####[facility] [address] [place], [address] Sodium [Moles/Vol] 138 mmol/L Normal 136-145 [facility] Comment on above: Order Comment: UNKNO WN Performed By: #### L 500.4050, L100.0100, L3100.3425, L3130.0010 ####[facility] [address] [place], [address] T PROT 6.2 g/dL Low 6.4-8.2 [facility] Comment on above: Order Comment: UNKNO WN Performed By: #### L 500.4050, L100.0100, L3100.3425, L3130.0010 ####[facility] [address] [place], [address] Urea nitrogen [Mass/Vol] 19 mg/dL High 7-18 [facility] Comment on above: Order Comment: UNKNO WN Performed By: #### L 500.4050, L100.0100, L3100.3425, L3130.0010 ####[facility] [address] [place], [address] ALB Normal 3.2-5.0 [facility] Comment on above: Result Comment: DUPL ICATE Performed By: #### L 500.4050, L100.0100 ####[facility] [address] [place], [address] ALK P Normal 45-117 [facility] Comment on above: Result Comment: DUPL ICATE Performed By: #### L 500.4050, L100.0100 ####[facility] [address] [place], [address] ALT Normal 16-61 [facility] Comment on above: Result Comment: DUPL ICATE Performed By: #### L 500.4050, L100.0100 ####[facility] [address] [place], [address] AST Normal 15-37 [facility] Comment on above: Result Comment: DUPL ICATE Performed By: #### L 500.4050, L100.0100 ####[facility] [address] [place], [address] BUN Normal 7-18 [facility] Comment on above: Result Comment: DUPL ICATE Performed By: #### L 500.4050, L100.0100 ####[facility] [address] [place], [address] BUN/CRE Normal 10-20 [facility] Comment on above: Result Comment: DUPL ICATE Performed By: #### L 500.4050, L100.0100 ####[facility] [address] [place], [address] CA,Total Normal 8.5-10.1 [facility] Comment on above: Result Comment: DUPL ICATE Performed By: #### L 500.4050, L100.0100 ####[facility] [address] [place], [address] CL Normal 98-107 [facility] Comment on above: Result Comment: DUPL ICATE Performed By: #### L 500.4050, L100.0100 ####[facility] [address] [place], [address] CO2 Normal 21.0-32.0 [facility] Comment on above: Result Comment: DUPL ICATE Performed By: #### L 500.4050, L100.0100 ####[facility] [address] [place], [address] CREAT,SERUM Normal 0.70-1.30 [facility] Comment on above: Result Comment: DUPL ICATE Performed By: #### L 500.4050, L100.0100 ####[facility] [address] [place], [address] EST GFR Normal >60 [facility] Comment on above: Result Comment: DUPL ICATE Performed By: #### L 500.4050, L100.0100 ####[facility] [address] [place], [address] EST GFR - AA Normal >60 [facility] Comment on above: Result Comment: DUPL ICATE Performed By: #### L 500.4050, L100.0100 ####[facility] [address] [place], [address] GAP Normal 5-15 [facility] Comment on above: Result Comment: DUPL ICATE Performed By: #### L 500.4050, L100.0100 ####[facility] [address] [place], [address] GLU Normal 74-106 [facility] Comment on above: Result Comment: DUPL ICATE Performed By: #### L 500.4050, L100.0100 ####[facility] [address] [place], [address] Potassium Normal 3.5-5.1 [facility] Comment on above: Result Comment: DUPL ICATE Performed By: #### L 500.4050, L100.0100 ####[facility] [address] [place], [address] T BILI Normal 0.20-1.00 [facility] Comment on above: Result Comment: DUPL ICATE Performed By: #### L 500.4050, L100.0100 ####[facility] [address] [place], [address] T PROT Normal 6.4-8.2 [facility] Comment on above: Result Comment: DUPL ICATE Performed By: #### L 500.4050, L100.0100 ####[facility] [address] [place], [address] Comprehensive Metabolic Profil Normal 136-145 [facility] Comment on above: Result Comment: DUPL ICATE Performed By: #### L 500.4050, L100.0100 ####[facility] [address] [place], [address] Oncology Visit Reporton 08-27 Oncology Visit Report Normal [facility] CBC AND ELECTRONIC DIFFon Abs Baso Auto < Normal 0.00-0.09 [facility] Comment on above: Performed By: #### L AB980 #### [facility] (DEFAULT) [address] [address] Basophils/100 WBC (Bld) 0.7 % Normal O [facility] Comment on above: Performed By: #### L AB980 #### [facility] (DEFAULT) [address] [address] DIFF STATUS Electronic Differential Normal [facility] Comment on above: Performed By: #### L AB980 #### [facility] (DEFAULT) [address] [address] Eosinophils (Bld) [#/Vol] 0.22 10*3/uL Normal 0.00-0.48 [facility] Comment on above: Performed By: #### L AB980 #### [facility] (DEFAULT) [address] [address] Eosinophils/100 WBC (Bld) 5.1 % Normal [facility] Comment on above: Performed By: #### L AB980 #### [facility] (DEFAULT) [address] [address] Hematocrit (Bld) [Volume fraction] 37.0 % Low 39.6-48.8 [facility] Comment on above: Performed By: #### L AB980 #### [facility] (DEFAULT) [address] [address] Hemoglobin (Bld) [Mass/Vol] 11.9 g/dL Low 13.4-16.8 [facility] Comment on above: Performed By: #### L AB980 #### [facility] (DEFAULT) [address] [place] [address] Immature Grans % 0.2 % Normal [facility] Comment on above: Performed By: #### L AB980 #### [facility] (DEFAULT) [address] [place] [address] Immature Grans Absolute < Normal <=0.07 O [facility] Comment on above: Performed By: #### L AB980 #### [facility] (DEFAULT) [address] [place] [address] Lymphocytes (Bld) [#/Vol] 0.49 10*3/uL Low 0.83-3.57 [facility] Comment on above: Performed By: #### L AB980 #### [facility] (DEFAULT) [address] [place] [address] Lymphocytes/100 WBC (Bld) 11.3 % Normal [facility] Comment on above: Performed By: #### L AB980 #### [facility] (DEFAULT) [address] [place] [address] MCV (RBC) [Entitic vol] 89.2 fL Normal 79.0-94.5 O [facility] Comment on above: Performed By: #### L AB980 #### [facility] (DEFAULT) [address] [address] Mean Cell Hgb 28.7 pg Normal 26.1-33.3 [facility] Comment on above: Performed By: #### L AB980 #### [facility] (DEFAULT) [address] [place] [address] Mean Cell Hgb Conc 32.2 g/dL Normal 31.9-36.5 [facility] Comment on above: Performed By: #### L AB980 #### [facility] (DEFAULT) [address] [place] [address] Monocytes (Bld) [#/Vol] 0.55 10*3/uL Normal 0.24-0.93 [facility] Comment on above: Performed By: #### L AB980 #### [facility] (DEFAULT) [address] [place] [address] Monocytes/100 WBC (Bld) 12.7 % Normal O [facility] Comment on above: Performed By: #### L AB980 #### [facility] (DEFAULT) [address] [place] [address] Nucleated RBC 0.0 /100 WBC Normal <=0.2 [facility] Comment on above: Performed By: #### L AB980 #### [facility] (DEFAULT) [address] [place] [address] Platelet mean volume (Bld) [Entitic vol] 10.5 fL Normal 8.7-12.3 [facility] Comment on above: Performed By: #### L AB980 #### [facility] (DEFAULT) [address] [place] [address] Platelets (Bld) [#/Vol] 138 10*3/uL Low 146-337 [facility] Comment on above: Performed By: #### L AB980 #### [facility] (DEFAULT) [address] [place] [address] RBC (Bld) [#/Vol] 4.15 10*6/uL Low 4.38-5.83 [facility] Comment on above: Performed By: #### L AB980 #### [facility] (DEFAULT) [address] [place] [address] RBC Distribution 14.6 % High 10.9-14.3 [facility] Comment on above: Performed By: #### L AB980 #### [facility] (DEFAULT) [address] [place] [address] Segs + Bands Auto 70.0 % Normal [facility] Comment on above: Performed By: #### L AB980 #### [facility] (DEFAULT) [address] [place] [address] Segs + Bands,Absolute Auto 3.03 K/uL Normal 1.57-6.19 [facility] Comment on above: Performed By: #### L AB980 #### [facility] (DEFAULT) [address] [place] [address] WBC (Bld) [#/Vol] 4.33 10*3/uL Normal 3.73-10.10 [facility] Comment on above: Performed By: #### L AB980 #### [facility] (DEFAULT) [address] [place] [address] COMPREHENSIVE METABOLIC PANE Jim 09-06-2024 Albumin [Mass/Vol] 3.9 g/dL Normal 3.5-5.0 [facility] Comment on above: Performed By: #### C MPN #### [facility] (DEFAULT) [address] [place] [address] ALP [Catalytic activity/Vol] 50 U/L Normal 32-126 [facility] Comment on above: Performed By: #### C MPN #### [facility] (DEFAULT) [address] [place] [address] ALT [Catalytic activity/Vol] 11 U/L Normal 10-52 [facility] Comment on above: Performed By: #### C MPN #### [facility] (DEFAULT) [address] [place] [address] Anion gap [Moles/Vol] 10 mmol/L Normal 7-17 [facility] Comment on above: Performed By: #### C MPN #### [facility] (DEFAULT) [address] [place] [address] AST [Catalytic activity/Vol] 13 U/L Normal 10-39 [facility] Comment on above: Performed By: #### C MPN #### [facility] (DEFAULT) [address] [place] [address] Bilirubin [Mass/Vol] 0.5 mg/dL Normal <1.5 [facility] Comment on above: Performed By: #### C MPN #### [facility] (DEFAULT) [address] [place] [address] Calcium [Mass/Vol] 9.2 mg/dL Normal 8.6-10.5 [facility] Comment on above: Performed By: #### C MPN #### [facility] (DEFAULT) [address] [place] [address] Chloride [Moles/Vol] 104 mmol/L Normal 98-108 [facility] Comment on above: Performed By: #### C MPN #### [facility] (DEFAULT) [address] [place] [address] CO2 [Moles/Vol] 30 mmol/L Normal 21-31 [facility] Comment on above: Performed By: #### C MPN #### [facility] (DEFAULT) [address] [place] [address] Creatinine [Mass/Vol] 0.97 mg/dL Normal 0.70-1.30 [place] Comment on above: Performed By: #### C MPN #### [facility] (DEFAULT) [address] [place] [address] GFR/1.73 sq M.predicted among non-blacks MDRD (S/P/Bld) [Vol rate/Area] 86 mL/min/{1.73_m2} Normal >=60 [facility] Comment on above: Result Comment: Repo rted eGFR is based on the CKD-EPI 1 equation using creatinine, age, and sex. Performed By: #### C MPN #### [facility] (DEFAULT) [address] [place] [address] Glucose [Mass/Vol] 101 mg/dL High 70-99 [facility] Comment on above: Performed By: #### C MPN #### [facility] (DEFAULT) [address] [place] [address] Osmolality [Osmolality] 295 mosm/kg Normal 278-305 [facility] Comment on above: Performed By: #### C MPN #### [facility] (DEFAULT) [address] [place] [address] Potassium [Moles/Vol] 4.1 mmol/L Normal 3.5-5.0 [place] Comment on above: Performed By: #### C MPN #### [facility] (DEFAULT) [address] [place] [address] Protein [Mass/Vol] 6.1 g/dL Low 6.4-8.3 [facility] Comment on above: Performed By: #### C MPN #### [facility] (DEFAULT) [address] [place] [address] Sodium [Moles/Vol] 140 mmol/L Normal 135-145 [facility] Comment on above: Performed By: #### C MPN #### [facility] (DEFAULT) [address] [place] [address] Urea nitrogen [Mass/Vol] 18 mg/dL Normal 7-25 [facility] Comment on above: Performed By: #### C MPN #### [facility] (DEFAULT) [address] [place] [address] Urea nitrogen/Creatinine [Mass ratio] 19 mg/mg Normal [facility] Comment on above: Performed By: #### C MPN #### [facility] (DEFAULT) [address] [place] [address] IMMUNOFIXATION SERUMon 09-06 Monoclonal 1 17.4 mg/dL High <=0.0 [facility] Comment on above: Performed By: #### S IMFXB, PSE, PSD #### [facility] (DEFAULT) [address] [place] [address] REVIEWED BY: Tomás Elena MD Normal [facility] Comment on above: Performed By: #### S IMFXB, PSE, PSD #### [facility] (DEFAULT) [address] [place] [address] Serum Immunofixation Minute amount of Ig G kappa monoclonal protein is present. Normal [facility] Comment on above: Performed By: #### S IMFXB, PSE, PSD #### [facility] (DEFAULT) [address] [address] IMMUNOGLOBULIN FREE CHAINSon 09-06-2024 [place] Free Light Chains 4.5 mg/L Normal 3.9-26.0 O [facility] Comment on above: Order Comment: Undet ected [...] laboratory. Performed By: #### I FLC #### [facility] (DEFAULT) [address] [address] [place]/Lambda Ratio 1.88 High 0.51-1.72 [facility] Comment on above: Order Comment: Undet [...] laboratory. Performed By: #### I FLC #### [facility] (DEFAULT) [address] [address] Lambda Free Light Chains 2.4 mg/L Low 6.4-22.1 [facility] Comment on above: Order Comment: Undet [...] laboratory. Performed By: #### I FLC #### [facility] (DEFAULT) [address] [place] [address] IMMUNOGLOBULINS IGG IGA IGMo n 09-06-2024 IgA [Mass/Vol] 23 mg/dL Low 90-410 [facility] Comment on above: Performed By: #### Q IMM #### [facility] (DEFAULT) [address] [place] [address] IgG [Mass/Vol] 367 mg/dL Low 600-1560 [facility] Comment on above: Performed By: #### Q IMM #### [facility] (DEFAULT) [address] [place] [address] IGM < Low 30-360 [facility] Comment on above: Performed By: #### Q IMM #### [facility] (DEFAULT) [address] [place] [address] PROTEIN ELECTROPHORESISon Albumin [Mass/Vol] 3.8 g/dL Normal 3.5-5.0 [facility] Comment on above: Performed By: #### S IMFXB, PSE, PSD #### [facility] (DEFAULT) [address] [place] [address] Alpha 1 0.3 g/dL Normal 0.2-0.4 [facility] Comment on above: Performed By: #### S IMFXB, PSE, PSD #### [facility] (DEFAULT) [address] [place] [address] Alpha 2 0.8 g/dL Normal 0.5-1.0 [facility] Comment on above: Performed By: #### S IMFXB, PSE, PSD #### [facility] (DEFAULT) [address] [place] [address] Beta 0.6 g/dL Normal 0.5-1.1 [facility] Comment on above: Performed By: #### S IMFXB, PSE, PSD #### [facility] (DEFAULT) [address] [place] [address] Gamma 0.3 g/dL Low 0.6-1.5 [facility] Comment on above: Performed By: #### S IMFXB, PSE, PSD #### [facility] (DEFAULT) [address] [place] [address] Interpretation By: Tomás Elena MD Normal [facility] Comment on above: Performed By: #### S IMFXB, PSE, PSD #### [facility] (DEFAULT) [address] [place] [address] Spe Interpretation There is a zone of restriction in the gamma region with decreased remaining polyclonal immunoglobulins. This pattern suggests monoclonal or oligoclonal proteins that may occur in chronic inflammatory diseases (e.g., of liver), or may be idiopathic, or may represent a monoclonal gammopathy. Normal [facility] Comment on above: Performed By: #### S IMFXB, PSE, PSD #### [facility] (DEFAULT) [address] [place] [address] SPE SERUM TOTAL PROTEINon Protein [Mass/Vol] 5.8 g/dL Low 6.4-8.3 [facility] Comment on above: Performed By: #### S IMFDOUGLAS RODAS, PSD #### [facility] (DEFAULT) [address] [place] [address] Plastic Surgery Visit Report on 08-31-2024 Plastic Surgery Visit Report Normal [facility] Erythrocyte Sed Rateon 08-22 SED RATE Normal 0-20 [facility] Comment on above: Result Comment: Canc elled via OM: Order cancelled - Patient discharged Performed By: #### L 101.9900 ####[facility] [address] [place], [address] ELINA + Protein Elect, Serumon 08-21-2024 Albumin [Mass/Vol] 3.1 g/dL Normal 2.9-4.4 [facility] Comment on above: Order Comment: KIM E ADD ON TO BLOOD IN LAB. THANK YOU!!NUNKNOWN Performed By: #### L 3130.0010, L3100.3425 ####[facility] [address] [place], [address] Albumin/Globulin [Mass ratio] 1.3 {ratio} Normal 0.7-1.7 [facility] Comment on above: Order Comment: PLEAS E ADD ON TO BLOOD IN LAB. THANK YOU!!NUNKNOWN Performed By: #### L 3130.0010, L3100.3425 ####[facility] [address] [place], [address] SXIWN-7-XVFP 0.2 g/dL Normal 0.0-0.4 [facility] Comment on above: Order Comment: PLEAS E ADD ON TO BLOOD IN LAB. THANK YOU!!NUNKNOWN Performed By: #### L 3130.0010, L3100.3425 ####[facility] [address] [facility] [address] CETOV-9-ALNH 0.9 g/dL Normal 0.4-1.0 [facility] Comment on above: Order Comment: PLEAS E ADD ON TO BLOOD IN LAB. THANK YOU!!NUNKNOWN Performed By: #### L 3130.0010, L3100.3425 ####[facility] [address] [place], [address] BETA GLOBULIN 0.8 g/dL Normal 0.7-1.3 [facility] Comment on above: Order Comment: PLEAS E ADD ON TO BLOOD IN LAB. THANK YOU!!NUNKNOWN Performed By: #### L 3130.0010, L3100.3425 ####[facility] [address] [place], [address] GAMMA GLOBULIN 0.4 g/dL Normal 0.4-1.8 [facility] Comment on above: Order Comment: PLEAS E ADD ON TO BLOOD IN LAB. THANK YOU!!NUNKNOWN Performed By: #### L 3130.0010, L3100.3425 ####[facility] [address] [place], [address] Globulin (S) [Mass/Vol] 2.4 g/dL Normal 2.2-3.9 [facility] Comment on above: Order Comment: PLEAS E ADD ON TO BLOOD IN LAB. THANK YOU!!NUNKNOWN Performed By: #### L 3130.0010, L3100.3425 ####[facility] [address] [place], [address] ELINA RESULT,S Comment Normal . [facility] Comment on above: Order Comment: PLEAS E ADD ON TO BLOOD IN LAB. THANK YOU!!NUNKNOWN Result Comment: No m onoclonality detected. Performed By: #### L 3130.0010, L3100.3425 ####[facility] [address] [place], [address] IMMUNOGLOB A QN 22 mg/dL Low 61-437 [facility] Comment on above: Order Comment: PLEAS E ADD ON TO BLOOD IN LAB. THANK YOU!!NUNKNOWN Result Comment: Resu lt confirmed on concentration. Performed By: #### L 3130.0010, L3100.3425 ####[facility] [address] [place], [address] IMMUNOGLOB G QN 424 mg/dL Low 603-1613 [facility] Comment on above: Order Comment: PLEAS E ADD ON TO BLOOD IN LAB. THANK YOU!!NUNKNOWN Performed By: #### L 3130.0010, L3100.3425 ####[facility] [address] [place], [address] IMMUNOGLOB M QN 8 mg/dL Low 20-172 [facility] Comment on above: Order Comment: PLEAS E ADD ON TO BLOOD IN LAB. THANK YOU!!NUNKNOWN Result Comment: Resu lt confirmed on concentration. Performed By: #### L 3130.0010, L3100.3425 ####[facility] [address] [place], [address] M-Raúl Not Observed Normal Not Observed [facility] Comment on above: Order Comment: PLEAS E ADD ON TO BLOOD IN LAB. THANK YOU!!NUNKNOWN Performed By: #### L 3130.0010, L3100.3425 ####[facility] [address] [place], [address] NOTE: Comment Normal . [facility] Comment on above: Order Comment: PLEAS E ADD ON TO BLOOD IN LAB. THANK YOU!!NUNKNOWN Result Comment: Prot ein electrophoresis scan will follow via computer,mail, or forging die sinker delivery. Performed By: #### L 3130.0010, L3100.3425 ####[facility] [address] [place], [address] Protein [Mass/Vol] 5.5 g/dL Low 6.0-8.5 [facility] Comment on above: Order Comment: PLEAS E ADD ON TO BLOOD IN LAB. THANK YOU!!NUNKNOWN Performed By: #### L 3130.0010, L3100.3425 ####[facility] [address] [place], [address] [place] Lambda Light Chainson 08-21-2024 FR KAPPA LT CHN 4.9 mg/L Normal 3.3-19.4 [facility] Comment on above: Order Comment: PLEAS E ADD ON TO BLOOD IN LAB. THANK YOU!!NUNKNOWN Performed By: #### L 3130.0010, L3100.3425 ####[facility] [address] [place], [address] FR LAMBDA LT CH 3.1 mg/L Abnormal 5.7-26.3 [facility] Comment on above: Order Comment: PLEAS E ADD ON TO BLOOD IN LAB. THANK YOU!!NUNKNOWN Performed By: #### L 3130.0010, L3100.3425 ####[facility] [address] [place], [address] KAPPA/LAMBDA % 1.58 Normal 0.26-1.65 [facility] Comment on above: Order Comment: KIM Chavez ADD ON TO BLOOD IN LAB. THANK YOU!!NUNKNOWN Result Comment: Perf ormed at: CB - [facility] [address] [place], [place] [id number] Director: Micky Arreola PhD, Phone: [phone] Performed By: #### L 3130.0010, L3693.4525 ####[facility] [address] [place], [address] CBC W/Diff, Automatedon 11-2 Absolute Lymph 0.55 X10 3/uL Low 0.83-4.51 [facility] Comment on above: Performed By: #### L 500.4050, L100.0100 ####[facility] [address] [place], [address] Absolute Neut 3.5 X10 3/uL Normal 2.0-7.7 [facility] Comment on above: Performed By: #### L 500.4050, L100.0100 ####[facility] [address] [place], [address] Basophils/100 WBC (Bld) 1.0 % Normal 0-1 [facility] Comment on above: Performed By: #### L 500.4050, L100.0100 ####[facility] [address] [place], [address] Eosinophils/100 WBC (Bld) 4.1 % Normal 0-5 [facility] Comment on above: Performed By: #### L 500.4050, L100.0100 ####[facility] [address] [place], [address] Erythrocyte distribution width (RBC) [Ratio] 14.9 % High 11.6-14.6 [facility] Comment on above: Performed By: #### L 500.4050, L100.0100 ####[facility] [address] [place], [address] Hematocrit (Bld) [Volume fraction] 36.2 % Low 40-54 [facility] Comment on above: Performed By: #### L 500.4050, L100.0100 ####[facility] [address] [place], [address] Hemoglobin (Bld) [Mass/Vol] 11.7 g/dL Low 13.0-16.5 [facility] Comment on above: Performed By: #### L 500.4050, L100.0100 ####[facility] [address] [place], [address] IG% 0.400 Normal 0.0-0.9 [facility] Comment on above: Result Comment: IG% - Immature Granulocytes (promyelocytes, myelocytes andmetamyelocytes) > 1% indicates that a LEFT SHIFT is Present. Performed By: #### L 500.4050, L100.0100 ####[facility] [address] [place], [address] Lymphocytes/100 WBC (Bld) 11.2 % Low 19-41 [facility] Comment on above: Performed By: #### L 500.4050, L100.0100 ####[facility] [address] [place], [address] MCH (RBC) [Entitic mass] 29.3 pg Normal 27.0-32.0 [facility] Comment on above: Performed By: #### L 500.4050, L100.0100 ####[facility] [address] [place], [address] MCHC (RBC) [Mass/Vol] 32.3 g/dL Normal 32-36 [facility] Comment on above: Performed By: #### L 500.4050, L100.0100 ####[facility] [address] [place], [address] MCV (RBC) [Entitic vol] 90.5 fL Normal 80-94 [facility] Comment on above: Performed By: #### L 500.4050, L100.0100 ####[facility] [address] [place], [address] Monocytes/100 WBC (Bld) 11.2 % High 0-10 [facility] Comment on above: Performed By: #### L 500.4050, L100.0100 ####[facility] [address] [place], [address] Neutrophils/100 WBC (Bld) 72.1 % High 47-70 [facility] Comment on above: Performed By: #### L 500.4050, L100.0100 ####[facility] [address] [place], [address] Nucleated RBC (Bld) [#/Vol] 0 10*3/uL Normal 0-5 [facility] Comment on above: Performed By: #### L 500.4050, L100.0100 ####[facility] [address] [place], [address] Platelet mean volume (Bld) [Entitic vol] 9.9 fL Normal 6.2-12.0 [facility] Comment on above: Performed By: #### L 500.4050, L100.0100 ####[facility] [address] [place], [address] Platelets (Bld) [#/Vol] 173 10*3/uL Normal 150-450 [facility] Comment on above: Performed By: #### L 500.4050, L100.0100 ####[facility] [address] [place], [address] RBC (Bld) [#/Vol] 4.00 10*6/uL Low 4.6-6.2 [facility] Comment on above: Performed By: #### L 500.4050, L100.0100 ####[facility] [address] [place], [address] RDW SD 49.6 fl High 35.1-43.9 [facility] Comment on above: Performed By: #### L 500.4050, L100.0100 ####[facility] [address] [place], [address] WBC (Bld) [#/Vol] 4.9 10*3/uL Normal 4.4-11.0 [facility] Comment on above: Performed By: #### L 500.4050, L100.0100 ####[facility] [address] [place], [address] Comprehensive Metabolic [facility] 08-17-2024 Albumin [Mass/Vol] 3.3 g/dL Normal 3.2-5.0 [facility] Comment on above: Performed By: #### L 500.4050, L100.0100 ####[facility] [address] [place], [address] Albumin/Globulin [Mass ratio] 1.2 {ratio} Normal 0.9-2.4 [facility] Comment on above: Performed By: #### L 500.4050, L100.0100 ####[facility] [address] [place], [address] ALK P 50 U/L Normal 45-117 [facility] Comment on above: Performed By: #### L 500.4050, L100.0100 ####[facility] [address] [place], [address] ALT [Catalytic activity/Vol] 17 U/L Normal 16-61 [facility] Comment on above: Performed By: #### L 500.4050, L100.0100 ####[facility] [facility] [address] [place], [address] AST [Catalytic activity/Vol] 14 U/L Low 15-37 [facility] Comment on above: Performed By: #### L 500.4050, L100.0100 ####[facility] [address] [place], [address] Bilirubin [Mass/Vol] 0.30 mg/dL Normal 0.20-1.00 [facility] Comment on above: Result Comment: For patients on eltrombopag therapy, use of Dimension [place] TBIL is not recommended. Performed By: #### L 500.4050, L100.0100 ####[facility] [address] [place], [address] BUN/CRE 15.2 RATIO Normal 10-20 [facility] Comment on above: Performed By: #### L 500.4050, L100.0100 ####[facility] [address] [place], [address] CA,Total 9.1 mg/dL Normal 8.5-10.1 [facility] Comment on above: Performed By: #### L 500.4050, L100.0100 ####[facility] [address] [place], [address] Chloride [Moles/Vol] 105 mmol/L Normal 98-107 [facility] Comment on above: Performed By: #### L 500.4050, L100.0100 ####[facility] [address] [place], [address] CO2 [Moles/Vol] 27.0 mmol/L Normal 21.0-32.0 [facility] Comment on above: Performed By: #### L 500.4050, L100.0100 ####[facility] [address] [place], [address] Creatinine [Mass/Vol] 1.25 mg/dL Normal 0.70-1.30 [facility] Comment on above: Result Comment: The validity of the calculated GFR GFRAA in patients over70 years has not been determined. Clinical correlation isessential. Performed By: #### L 500.4050, L100.0100 ####[facility] [address] [place], [address] ECRCL 56.77 ml/min Normal [facility] Comment on above: Performed By: #### L 500.4050, L100.0100 ####[facility] [address] [place], [address] EST GFR - AA 74 mL/min Normal >60 [facility] Comment on above: Result Comment: Afri can Nepalese GFR Calc Performed By: #### L 500.4050, L100.0100 ####[facility] [address] [place], [address] GAP 8 Normal 5-15 [facility] Comment on above: Performed By: #### L 500.4050, L100.0100 ####[facility] [address] [place], [address] GFR/1.73 sq M.predicted among non-blacks MDRD (S/P/Bld) [Vol rate/Area] 61 mL/min/{1.73_m2} Normal >60 [facility] Comment on above: Result Comment: Non- GFR Calc Performed By: #### L 500.4050, L100.0100 ####[facility] [address] [place], [address] Globulin (S) [Mass/Vol] 2.8 g/dL Normal 2.2-4.2 [facility] Comment on above: Performed By: #### L 500.4050, L100.0100 ####[facility] [address] [place], [address] Glucose [Mass/Vol] 148 mg/dL High 74-106 [facility] Comment on above: Result Comment: Fast ing Glucose result greater than or equal to 126 mg/dLsuggests DIABETES MELLITUS per A.D.A. criteria. Performed By: #### L 500.4050, L100.0100 ####[facility] [address] [place], [address] Potassium [Moles/Vol] 3.9 mmol/L Normal 3.5-5.1 [facility] Comment on above: Performed By: #### L 500.4050, L100.0100 ####[facility] [address] [place], [address] Sodium [Moles/Vol] 140 mmol/L Normal 136-145 [facility] Comment on above: Performed By: #### L 500.4050, L100.0100 ####[facility] [address] [place], [address] T PROT 6.1 g/dL Low 6.4-8.2 [facility] Comment on above: Performed By: #### L 500.4050, L100.0100 ####[facility] [address] [place], [address] Urea nitrogen [Mass/Vol] 19 mg/dL High -18 [facility] Comment on above: Performed By: #### L 500.4050, L100.0100 ####[facility] [address] [place], [address] Oncology Visit Reporton 07-29 Oncology Visit Report Normal [facility] Basic Metabolic Profile (BMP )on 08-15-2024 BUN Normal - [facility] Comment on above: Result Comment: Canc elled via OM: Order cancelled - Patient discharged Performed By: #### L 500.2500, L101.9900 ####[facility] [address] [place], [address] BUN/CRE Normal 10-20 [facility] Comment on above: Result Comment: Canc elled via OM: Order cancelled - Patient discharged Performed By: #### L 500.2500, L101.9900 ####[facility] [address] [place], [address] CA,Total Normal 8.5-10.1 [facility] Comment on above: Result Comment: Canc elled via OM: Order cancelled - Patient discharged Performed By: #### L 500.2500, L101.9900 ####[facility] [address] [place], [address] CL Normal 98-107 [facility] Comment on above: Result Comment: Canc elled via OM: Order cancelled - Patient discharged Performed By: #### L 500.2500, L101.9900 ####[facility] [address] [place], [address] CO2 Normal 21.0-32.0 [facility] Comment on above: Result Comment: Canc elled via OM: Order cancelled - Patient discharged Performed By: #### L 500.2500, L101.9900 ####[facility] [address] [place], [address] CREAT,SERUM Normal 0.70-1.30 [facility] Comment on above: Result Comment: Canc elled via OM: Order cancelled - Patient discharged Performed By: #### L 500.2500, L101.9900 ####[facility] [address] [place], [address] EST GFR Normal >60 [facility] Comment on above: Result Comment: Canc elled via OM: Order cancelled - Patient discharged Performed By: #### L 500.2500, L101.9900 ####[facility] [address] [place], [address] EST GFR - AA Normal >60 [facility] Comment on above: Result Comment: Canc elled via OM: Order cancelled - Patient discharged Performed By: #### L 500.2500, L101.9900 ####[facility] [address] [place], [address] GAP Normal 5-15 [facility] Comment on above: Result Comment: Canc elled via OM: Order cancelled - Patient discharged Performed By: #### L 500.2500, L101.9900 ####[facility] [address] [place], [address] GLU Normal 74-106 [facility] Comment on above: Result Comment: Canc elled via OM: Order cancelled - Patient discharged Performed By: #### L 500.2500, L101.9900 ####[facility] [address] [place], [address] Potassium Normal 3.5-5.1 [facility] Comment on above: Result Comment: Canc elled via OM: Order cancelled - Patient discharged Performed By: #### L 500.2500, L101.9900 ####[facility] [address] [place], [address] Basic Metabolic Profile (BMP) Normal 136-145 [facility] Comment on above: Result Comment: Canc elled via OM: Order cancelled - Patient discharged Performed By: #### L 500.2500, L101.9900 ####[facility] [address] [place], [address] Erythrocyte Sed Rateon 08-15 SED RATE Normal 0-20 [facility] Comment on above: Result Comment: Canc elled via OM: Order cancelled - Patient discharged Performed By: #### L 500.2500, L101.9900 ####[facility] [address] [place], [address] COVID 19 AG RAPID (RN RYANN Carlson)on 08-11-2024 SARS-CoV-2 (COVID-19) RNA GARTH+probe Ql (Unsp spec) Normal [facility] Comment on above: Performed By: #### M 100.505 ####[facility] [address] [place], [address] SARS-CoV-2 (COVID-19) Ag IA. rapid Ql (Resp)Ordered By: Burt Pereraok on 08-11-2024 SARS-CoV-2 Antigen (Rapid) [facility] Vancomycin trough [Mass/Vol] Ordered By: Burt Kaba on 08-11-2024 Vancomycin Level Trough 16.6 ug/mL High 5.0-15.0 [facility] Comment on above: VANCOMYCIN STANDARED DRUG THERAPY TROUGH LEVEL: 5.0 - 15.0 mg/L VANCOMYCIN HIGH INTENSITY THERAPY TROUGH LEVEL: 15.0 - 20.0 mg/L High Intensity therapy recommended for serious lifethreatening infections include:- Noddcjxcst-Svfkyailwfzp-Gumckejck (Ventilator/Healtcare Associated)-Sepsis PLEASE CONTACT PHARMACY SERVICES (#[id number]) FOR INTERPRETATIONOF RESULTS. Vancomycin, Trough Levelon 1 10-11-2023 VANCO, TROUGH 16.6 ug/mL High 5.0-15.0 [facility] Comment on above: Order Comment: Comme nts: Trough to be drawn 30 mins prior to scheduled [id number] Result Comment: VANC OMYCIN STANDARED DRUG THERAPY TROUGH LEVEL: 5.0 - 15.0 mg/LVANCOMYCIN HIGH INTENSITY THERAPY TROUGH LEVEL: 15.0 - 20.0 mg/LHigh Intensity therapy recommended for serious lifethreatening infections include:- Qyypujypmm-Krzkzgokfxrz-Lwzdxrsqj (Ventilator/Healtcare Associated)-SepsisPLEASE CONTACT PHARMACY SERVICES (#[id number]) FOR INTERPRETATIONOF RESULTS. Performed By: #### L 501.8820 ####[facility] [address] [place], [address] Absolute neutrophil countOrd ered By: Burt Kaba on 08-08-2024 Neutrophils (Bld) [#/Vol] 2.8 10*3/uL 2.0-7.7 [facility] Basic Metabolic Profile (BMP )on 08-08-2024 BUN/CRE 28.6 RATIO High 07-16 [facility] Comment on above: Performed By: #### L 101.9900, L100.0100, L500.2500 ####[facility] [address] [place], [address] CA,Total 8.9 mg/dL Normal 8.5-10.1 [facility] Comment on above: Performed By: #### L 101.9900, L100.0100, L500.2500 ####[facility] [address] [place], [address] Chloride [Moles/Vol] 107 mmol/L Normal 98-107 [facility] Comment on above: Performed By: #### L 101.9900, L100.0100, L500.2500 ####[facility] [address] [place], [address] CO2 [Moles/Vol] 29.0 mmol/L Normal 21.0-32.0 [facility] Comment on above: Performed By: #### L 101.9900, L100.0100, L500.2500 ####[facility] [address] [place], [address] Creatinine [Mass/Vol] 1.05 mg/dL Normal 0.70-1.30 [facility] Comment on above: Result Comment: The validity of the calculated GFR GFRAA in patients over70 years has not been determined. Clinical correlation isessential. Performed By: #### L 101.9900, L100.0100, L500.2500 ####[facility] [address] [place], [address] ECRCL 67.06 ml/min Normal [facility] Comment on above: Performed By: #### L 101.9900, L100.0100, L500.2500 ####[facility] [address] [place], [address] EST GFR - AA 91 mL/min Normal >60 [facility] Comment on above: Result Comment: Afri can Nepalese GFR Calc Performed By: #### L 101.9900, L100.0100, L500.2500 ####[facility] [address] [place], [address] GAP 7 Normal 5-15 [facility] Comment on above: Performed By: #### L 101.9900, L100.0100, L500.2500 ####[facility] [address] [place], [address] GFR/1.73 sq M.predicted among non-blacks MDRD (S/P/Bld) [Vol rate/Area] 75 mL/min/{1.73_m2} Normal >60 [facility] Comment on above: Result Comment: Non- GFR Calc Performed By: #### L 101.9900, L100.0100, L500.2500 ####[facility] [address] [place], [address] Glucose [Mass/Vol] 99 mg/dL Normal 74-106 [facility] Comment on above: Performed By: #### L 101.9900, L100.0100, L500.2500 ####[facility] [address] [place], [address] Potassium [Moles/Vol] 4.0 mmol/L Normal 3.5-5.1 [facility] Comment on above: Performed By: #### L 101.9900, L100.0100, L500.2500 ####[facility] [address] [place], [address] Sodium [Moles/Vol] 142 mmol/L Normal 136-145 [facility] Comment on above: Performed By: #### L 101.9900, L100.0100, L500.2500 ####[facility] [address] [place], [address] Urea nitrogen [Mass/Vol] 30 mg/dL High 7-18 [facility] Comment on above: Performed By: #### L 101.9900, L100.0100, L500.2500 ####[facility] [address] [place], [address] Basophil percentageOrdered B y: Burt Kaba on 08-08-2024 Basophils/100 WBC (Bld) 1.0 % 0-1 [facility] Blood urea nitrogen (BUN)/cr eatinine ratioOrdered By: Burt Kaba on 08-08-2024 Urea nitrogen/Creatinine [Mass ratio] 28.6 mg/mg High - [facility] CBC W/Diff, Automatedon 07-28 Absolute Lymph 0.42 X10 3/uL Low 0.83-4.51 [facility] Comment on above: Performed By: #### L 101.9900, L100.0100, L500.2500 ####[facility] [address] [place], [address] Absolute Neut 2.8 X10 3/uL Normal 2.0-7.7 [facility] Comment on above: Performed By: #### L 101.9900, L100.0100, L500.2500 ####[facility] [address] [place], [address] Basophils/100 WBC (Bld) 1.0 % Normal 0-1 [facility] Comment on above: Performed By: #### L 101.9900, L100.0100, L500.2500 ####[facility] [address] [place], [address] Eosinophils/100 WBC (Bld) 3.8 % Normal 0-5 [facility] Comment on above: Performed By: #### L 101.9900, L100.0100, L500.2500 ####[facility] [address] [place], [address] Erythrocyte distribution width (RBC) [Ratio] 14.8 % High 11.6-14.6 [facility] Comment on above: Performed By: #### L 101.9900, L100.0100, L500.2500 ####[facility] [address] [place], [address] Hematocrit (Bld) [Volume fraction] 31.8 % Low 40-54 [facility] Comment on above: Performed By: #### L 101.9900, L100.0100, L500.2500 ####[facility] [address] [place], [address] Hemoglobin (Bld) [Mass/Vol] 10.2 g/dL Low 13.0-16.5 [facility] Comment on above: Performed By: #### L 101.9900, L100.0100, L500.2500 ####[facility] [address] [place], [address] IG% 0.500 Normal 0.0-0.9 [facility] Comment on above: Result Comment: IG% - Immature Granulocytes (promyelocytes, myelocytes andmetamyelocytes) > 1% indicates that a LEFT SHIFT is Present. Performed By: #### L 101.9900, L100.0100, L500.2500 ####[facility] [address] [place], [address] Lymphocytes/100 WBC (Bld) 10.7 % Low 19-41 [facility] Comment on above: Performed By: #### L 101.9900, L100.0100, L500.2500 ####[facility] [address] [place], [address] MCH (RBC) [Entitic mass] 29.0 pg Normal 27.0-32.0 [facility] Comment on above: Performed By: #### L 101.9900, L100.0100, L500.2500 ####[facility] [address] [place], [address] MCHC (RBC) [Mass/Vol] 32.1 g/dL Normal 32-36 [facility] Comment on above: Performed By: #### L 101.9900, L100.0100, L500.2500 ####[facility] [address] [place], [address] MCV (RBC) [Entitic vol] 90.3 fL Normal 80-94 [facility] Comment on above: Performed By: #### L 101.9900, L100.0100, L500.2500 ####[facility] [address] [place], [address] Monocytes/100 WBC (Bld) 12.5 % High 0-10 [facility] Comment on above: Performed By: #### L 101.9900, L100.0100, L500.2500 ####[facility] [address] [place], [address] Neutrophils/100 WBC (Bld) 71.5 % High 47-70 [facility] Comment on above: Performed By: #### L 101.9900, L100.0100, L500.2500 ####[facility] [address] [place], [address] Nucleated RBC (Bld) [#/Vol] 0 10*3/uL Normal 0-5 [facility] Comment on above: Performed By: #### L 101.9900, L100.0100, L500.2500 ####[facility] [address] [place], [address] Platelet mean volume (Bld) [Entitic vol] 10.4 fL Normal 6.2-12.0 [facility] Comment on above: Performed By: #### L 101.9900, L100.0100, L500.2500 ####[facility] [address] [place], [address] Platelets (Bld) [#/Vol] 171 10*3/uL Normal 150-450 [facility] Comment on above: Performed By: #### L 101.9900, L100.0100, L500.2500 ####[facility] [address] [place], [address] RBC (Bld) [#/Vol] 3.52 10*6/uL Low 4.6-6.2 [facility] Comment on above: Performed By: #### L 101.9900, L100.0100, L500.2500 ####[facility] [address] [place], [address] RDW SD 48.6 fl High 35.1-43.9 [facility] Comment on above: Performed By: #### L 101.9900, L100.0100, L500.2500 ####[facility] [address] [place], [address] WBC (Bld) [#/Vol] 3.9 10*3/uL Low 4.4-11.0 [facility] Comment on above: Performed By: #### L 101.9900, L100.0100, L500.2500 ####[facility] [address] [place], [address] Carbon dioxide measurementOr dered By: Burt Kaba on 08-08-2024 CO2 [Moles/Vol] 29.0 mmol/L 21.0-32.0 [facility] Chloride measurementOrdered By: Burt Kaba on 08-08-2024 Chloride [Moles/Vol] 107 mmol/L 98-107 [facility] Eosinophil percentageOrdered By: Burt Kaba on 08-08-2024 Eosinophils/100 WBC (Bld) 3.8 % 0-5 [facility] Erythrocyte Sed Rateon 08-08 SED RATE 10 mm/hr Normal 0-20 [facility] Comment on above: Performed By: #### L 101.9900, L100.0100, L500.2500 ####[facility] [address] [place], [address] Erythrocyte distribution wid th ratioOrdered By: Burt Sesar on 08-08-2024 Erythrocyte distribution width (RBC) [Ratio] 14.8 % High 11.6-14.6 [facility] Erythrocyte distribution wid th standard deviationOrdered By: Burt Sesar on 08-08-2024 Erythrocyte distribution width (RBC) [Entitic vol] 48.6 fL High 35.1-43.9 [facility] Erythrocyte sedimentation ra teOrdered By: Burt Kaba 08-08-2024 ESR (Bld) [Velocity] 10 mm/h 0-20 [facility] Estimated glomerular filtrat ion rate (GFR) AmericanOrdered By: Burt Kaba 08-08-2024 Estimated GFR (MDRD) Amer 91 mL/min >60 [facility] Comment on above: GFR Calc Estimation of creatinine gavin aranceOrdered By: Burt Kaba 08-08-2024 Estimated Creatinine Clearance Calc 67.06 ml/min [facility] Glomerular filtration rate ( GFR) estimationOrdered By: Burt Kaba 08-08-2024 Estimated GFR (MDRD) Non-Af Amer 75 mL/min >60 [facility] Comment on above: Non- GFR Calc Glucose measurementOrdered B y: Burt Kaba on 08-08-2024 Glucose [Mass/Vol] 99 mg/dL 74-106 [facility] Hematocrit Auto (Bld) [Volum e fraction]Ordered By: Burt Kaba 08-08-2024 Hematocrit (Bld) [Volume fraction] 31.8 % Low 40-54 [facility] Hemoglobin measurementOrdere d By: Burt Kaba 08-08-2024 Hemoglobin (Bld) [Mass/Vol] 10.2 g/dL Low 13.0-16.5 [facility] Immature granulocytes/100 WB C Auto (Bld)Ordered By: Burt Kaba 08-08-2024 Immature granulocytes/100 WBC (Bld) 0.500 % 0.0-0.9 [facility] Comment on above: IG% - Immature Granu locytes (promyelocytes, myelocytes and metamyelocytes) > 1% indicates that a LEFT SHIFT is Present. Lymphocytes Auto (Unsp spec) [#/Vol]Ordered By: Burt Kaba on 08-08-2024 Lymphocytes (Bld) [#/Vol] 0.42 10*3/uL Low 0.83-4.51 [facility] Lymphocytes/100 WBC Auto (Un sp spec)Ordered By: Burt Kaba on 08-08-2024 Lymphocytes/100 WBC (Bld) 10.7 % Low 19-41 [facility] MCV (mean corpuscular volume ) determinationOrdered By: Burt Kaba on 08-08-2024 MCV (RBC) [Entitic vol] 90.3 fL 80-94 [facility] Mean corpuscular hemoglobin (MCH) determinationOrdered By: Burt Kaba on 08-08-2024 MCH (RBC) [Entitic mass] 29.0 pg 27.0-32.0 [facility] Mean corpuscular hemoglobin concentration (MCHC) determinationOrdered By: Burt Kaba on 08-08-2024 MCHC (RBC) [Mass/Vol] 32.1 g/dL 32-36 [facility] Mean platelet volume determi nationOrdered By: Burt Kaba on 08-08-2024 Platelet mean volume (Bld) [Entitic vol] 10.4 fL 6.2-12.0 [facility] Monocyte percentageOrdered B y: Burt Kaba on 08-08-2024 Monocytes/100 WBC (Bld) 12.5 % High 0-10 [facility] Neutrophil percentageOrdered By: Burt Kaba on 08-08-2024 Neutrophils/100 WBC (Bld) 71.5 % High 47-70 [facility] Nucleated red blood cell per centageOrdered By: Burt Kaba on 08-08-2024 Nucleated RBC/100 WBC (Bld) [Ratio] 0 % 0-5 [facility] Platelet countOrdered By: Julio C Kaba on 08-08-2024 Platelets (Bld) [#/Vol] 171 10*3/uL 150-450 [facility] Potassium measurementOrdered By: Burt Kaba on 08-08-2024 Potassium [Moles/Vol] 4.0 mmol/L 3.5-5.1 [facility] RBC Auto (Bld) [#/Vol]Ordere d By: Burt Kaba on 08-08-2024 RBC (Bld) [#/Vol] 3.52 10*6/uL Low 4.6-6.2 [facility] Serum anion gap measurementO rdered By: Burt Sesar on 08-08-2024 Anion gap [Moles/Vol] 7 mmol/L - [facility] Serum or plasma calcium giovanny urement (mass/volume)Ordered By: Burt Kaba on 08-08-2024 Calcium [Mass/Vol] 8.9 mg/dL 8.5-10.1 [facility] Serum or plasma creatinine m easurement (mass/volume)Ordered By: Burt Kaba on 08-08-2024 Creatinine [Mass/Vol] 1.05 mg/dL 0.70-1.30 [facility] Comment on above: The validity of the calculated GFR & GFRAA in patients over 70 years has not been determined. Clinical correlation is essential. Serum or plasma urea nitroge n measurement (mass/volume)Ordered By: Burt Kaba on 08-08-2024 Urea nitrogen [Mass/Vol] 30 mg/dL High 04-13 [facility] Sodium levelOrdered By: Burt Kaba on 08-08-2024 Sodium [Moles/Vol] 142 mmol/L 136-145 [facility] White blood cell (WBC) count Ordered By: Burt Kaba on 08-08-2024 WBC (Bld) [#/Vol] 3.9 10*3/uL Low 4.4-11.0 [facility] Vancomycin, Trough Levelon 10-07-2023 VANCO, TROUGH 16.3 ug/mL High 5.0-15.0 [facility] Comment on above: Order Comment: Comme nts: Trough to be drawn 30 mins prior to scheduled [id number] Result Comment: VANC OMYCIN STANDARED DRUG THERAPY TROUGH LEVEL: 5.0 - 15.0 mg/LVANCOMYCIN HIGH INTENSITY THERAPY TROUGH LEVEL: 15.0 - 20.0 mg/LHigh Intensity therapy recommended for serious lifethreatening infections include:- Cndprhwqhe-Nqrtnqbcucnl-Xhfidaxax (Ventilator/Healtcare Associated)-SepsisPLEASE CONTACT PHARMACY SERVICES (#[id number]) FOR INTERPRETATIONOF RESULTS. Performed By: #### L 501.8850 ####[facility] [address] [place], [place], [phone] Vancomycin, Trough Levelon 1 10-03-2023 VANCO, TROUGH 15.5 ug/mL High 5.0-15.0 [facility] Comment on above: Order Comment: Comme nts: Trough to be drawn 30 mins prior to scheduled [id number] Result Comment: VANC OMYCIN STANDARED DRUG THERAPY TROUGH LEVEL: 5.0 - 15.0 mg/LVANCOMYCIN HIGH INTENSITY THERAPY TROUGH LEVEL: 15.0 - 20.0 mg/LHigh Intensity therapy recommended for serious lifethreatening infections include:- Tkoqgoplmd-Ldzstqyzqlpr-Rkfaatwvb (Ventilator/Healtcare Associated)-SepsisPLEASE CONTACT PHARMACY SERVICES (#9040) FOR INTERPRETATIONOF RESULTS. Performed By: #### L 501.8820 ####[facility] [address] [place], [address] Basic Metabolic Profile (BMP )on 08-01-2024 BUN/CRE 30.5 RATIO High 10-20 [facility] Comment on above: Performed By: #### L 100.0100, L101.9900, L500.2500 ####[facility] [address] [place], [address] CA,Total 9.2 mg/dL Normal 8.5-10.1 [facility] Comment on above: Performed By: #### L 100.0100, L101.9900, L500.2500 ####[facility] [address] [place], [address] Chloride [Moles/Vol] 106 mmol/L Normal 98-107 [facility] Comment on above: Performed By: #### L 100.0100, L101.9900, L500.2500 ####[facility] [address] [place], [address] CO2 [Moles/Vol] 30.0 mmol/L Normal 21.0-32.0 [facility] Comment on above: Performed By: #### L 100.0100, L101.9900, L500.2500 ####[facility] [address] [place], [address] Creatinine [Mass/Vol] 0.98 mg/dL Normal 0.70-1.30 [facility] Comment on above: Result Comment: The validity of the calculated GFR GFRAA in patients over70 years has not been determined. Clinical correlation isessential. Performed By: #### L 100.0100, L101.9900, L500.2500 ####[facility] [address] [place], [address] ECRCL 70.84 ml/min Normal [facility] Comment on above: Performed By: #### L 100.0100, L101.9900, L500.2500 ####[facility] [address] [place], [address] EST GFR - AA 98 mL/min Normal >60 [facility] Comment on above: Result Comment: Afri can Nepalese GFR Calc Performed By: #### L 100.0100, L101.9900, L500.2500 ####[facility] [address] [place], [address] GAP 5 Normal 5-15 [facility] Comment on above: Performed By: #### L 100.0100, L101.9900, L500.2500 ####[facility] [address] [place], [address] GFR/1.73 sq M.predicted among non-blacks MDRD (S/P/Bld) [Vol rate/Area] 81 mL/min/{1.73_m2} Normal >60 [facility] Comment on above: Result Comment: Non- GFR Calc Performed By: #### L 100.0100, L101.9900, L500.2500 ####[facility] [address] [place], [address] Glucose [Mass/Vol] 98 mg/dL Normal 74-106 [facility] Comment on above: Performed By: #### L 100.0100, L101.9900, L500.2500 ####[facility] [address] [place], [address] Potassium [Moles/Vol] 3.8 mmol/L Normal 3.5-5.1 [facility] Comment on above: Performed By: #### L 100.0100, L101.9900, L500.2500 ####[facility] [address] [place], [address] Sodium [Moles/Vol] 141 mmol/L Normal 136-145 [facility] Comment on above: Performed By: #### L 100.0100, L101.9900, L500.2500 ####[facility] [address] [place], [address] Urea nitrogen [Mass/Vol] 30 mg/dL High 7-18 [facility] Comment on above: Performed By: #### L 100.0100, L101.9900, L500.2500 ####[facility] [address] [place], [address] CBC W/Diff, Automatedon 11-0 5-2023 Absolute Lymph 0.35 X10 3/uL Low 0.83-4.51 [facility] Comment on above: Performed By: #### L 100.0100, L101.9900, L500.2500 ####[facility] [address] [place], [address] Absolute Neut 2.1 X10 3/uL Normal 2.0-7.7 [facility] Comment on above: Performed By: #### L 100.0100, L101.9900, L500.2500 ####[facility] [address] [place], [address] Basophils/100 WBC (Bld) 0.7 % Normal 0-1 [facility] Comment on above: Performed By: #### L 100.0100, L101.9900, L500.2500 ####[facility] [address] [place], [address] Eosinophils/100 WBC (Bld) 3.7 % Normal 0-5 [facility] Comment on above: Performed By: #### L 100.0100, L101.9900, L500.2500 ####[facility] [address] [place], [address] Erythrocyte distribution width (RBC) [Ratio] 15.0 % High 11.6-14.6 [facility] Comment on above: Performed By: #### L 100.0100, L101.9900, L500.2500 ####[facility] [address] [place], [address] Hematocrit (Bld) [Volume fraction] 30.8 % Low 40-54 [facility] Comment on above: Performed By: #### L 100.0100, L101.9900, L500.2500 ####[facility] [address] [place], [address] Hemoglobin (Bld) [Mass/Vol] 9.7 g/dL Low 13.0-16.5 [facility] Comment on above: Performed By: #### L 100.0100, L101.9900, L500.2500 ####[facility] [address] [place], [address] IG% 0.300 Normal 0.0-0.9 [facility] Comment on above: Result Comment: IG% - Immature Granulocytes (promyelocytes, myelocytes andmetamyelocytes) > 1% indicates that a LEFT SHIFT is Present. Performed By: #### L 100.0100, L101.9900, L500.2500 ####[facility] [address] [place], [address] Lymphocytes/100 WBC (Bld) 11.6 % Low 19-41 [facility] Comment on above: Performed By: #### L 100.0100, L101.9900, L500.2500 ####[facility] [address] [place], [address] MCH (RBC) [Entitic mass] 28.5 pg Normal 27.0-32.0 [facility] Comment on above: Performed By: #### L 100.0100, L101.9900, L500.2500 ####[facility] [address] [place], [address] MCHC (RBC) [Mass/Vol] 31.5 g/dL Low 32-36 [facility] Comment on above: Performed By: #### L 100.0100, L101.9900, L500.2500 ####[facility] [address] [place], [address] MCV (RBC) [Entitic vol] 90.6 fL Normal 80-94 [facility] Comment on above: Performed By: #### L 100.0100, L101.9900, L500.2500 ####[facility] [address] [place], [address] Monocytes/100 WBC (Bld) 15.3 % High 0-10 [facility] Comment on above: Performed By: #### L 100.0100, L101.9900, L500.2500 ####[facility] [address] [place], [address] Neutrophils/100 WBC (Bld) 68.4 % Normal 47-70 [facility] Comment on above: Performed By: #### L 100.0100, L101.9900, L500.2500 ####[facility] [address] [place], [address] Nucleated RBC (Bld) [#/Vol] 0 10*3/uL Normal 0-5 [facility] Comment on above: Performed By: #### L 100.0100, L101.9900, L500.2500 ####[facility] [address] [place], [address] Platelet mean volume (Bld) [Entitic vol] 10.2 fL Normal 6.2-12.0 [facility] Comment on above: Performed By: #### L 100.0100, L101.9900, L500.2500 ####[facility] [address] [place], [address] Platelets (Bld) [#/Vol] 138 10*3/uL Low 150-450 [facility] Comment on above: Performed By: #### L 100.0100, L101.9900, L500.2500 ####[facility] [address] [place], [address] RBC (Bld) [#/Vol] 3.40 10*6/uL Low 4.6-6.2 [facility] Comment on above: Performed By: #### L 100.0100, L101.9900, L500.2500 ####[facility] [address] [place], [address] RDW SD 49.7 fl High 35.1-43.9 [facility] Comment on above: Performed By: #### L 100.0100, L101.9900, L500.2500 ####[facility] [address] [place], [address] WBC (Bld) [#/Vol] 3.0 10*3/uL Low 4.4-11.0 [facility] Comment on above: Performed By: #### L 100.0100, L101.9900, L500.2500 ####[facility] [address] [place], [address] Erythrocyte Sed Rateon 08-01 SED RATE 15 mm/hr Normal 0-20 [facility] Comment on above: Performed By: #### L 100.0100, L101.9900, L500.2500 ####[facility] [address] [place], [address] Vancomycin, Trough Levelon 1 09-29-2023 VANCO, TROUGH 14.6 ug/mL Normal 5.0-15.0 [facility] Comment on above: Order Comment: Comme nts: Trough to be drawn 30 mins prior to scheduled [id number] Result Comment: VANC OMYCIN STANDARED DRUG THERAPY TROUGH LEVEL: 5.0 - 15.0 mg/LVANCOMYCIN HIGH INTENSITY THERAPY TROUGH LEVEL: 15.0 - 20.0 mg/LHigh Intensity therapy recommended for serious lifethreatening infections include:- Anztnoggkq-Zwqcqlyeridp-Fgceokvfs (Ventilator/Healtcare Associated)-SepsisPLEASE CONTACT PHARMACY SERVICES (#8391) FOR INTERPRETATIONOF RESULTS. Performed By: #### L 501.8820 ####[facility] [address] [place], [address] Vancomycin, Trough Levelon 09-27-2023 VANCO, TROUGH 14.7 ug/mL Normal 5.0-15.0 [facility] Comment on above: Order Comment: Comme nts: Trough to be drawn 30 mins prior to scheduled doseDRAW DELAYED, PT. IN [id number] Result Comment: VANC OMYCIN STANDARED DRUG THERAPY TROUGH LEVEL: 5.0 - 15.0 mg/LVANCOMYCIN HIGH INTENSITY THERAPY TROUGH LEVEL: 15.0 - 20.0 mg/LHigh Intensity therapy recommended for serious lifethreatening infections include:- Klmsmddrvh-Jpfgwltkxjtf-Rdbmzykzz (Ventilator/Healtcare Associated)-SepsisPLEASE CONTACT PHARMACY SERVICES (#8391) FOR INTERPRETATIONOF RESULTS. Performed By: #### L 501.8820 ####[facility] [address] [place], [address] HH, Hemoglobin AND Hematocri ton 07-27-2024 Hematocrit (Bld) [Volume fraction] 28.6 % Low 40-54 [facility] Comment on above: Performed By: #### L 100.0600 ####[facility] [address] [place], [address] Hemoglobin (Bld) [Mass/Vol] 9.0 g/dL Low 13.0-16.5 [facility] Comment on above: Performed By: #### L 100.0600 ####[facility] [address] [place], [address] Vancomycin, Trough Levelon VANCO, TROUGH 16.4 ug/mL High 5.0-15.0 [facility] Comment on above: Order Comment: 2100 Result Comment: VANC OMYCIN STANDARED DRUG THERAPY TROUGH LEVEL: 5.0 - 15.0 mg/LVANCOMYCIN HIGH INTENSITY THERAPY TROUGH LEVEL: 15.0 - 20.0 mg/LHigh Intensity therapy recommended for serious lifethreatening infections include:- Tmlieuqnqh-Ydldioxxooso-Ifchalvbe (Ventilator/Healtcare Associated)-SepsisPLEASE CONTACT PHARMACY SERVICES (#9978) FOR INTERPRETATIONOF RESULTS. Performed By: #### L 501.8820 ####[facility] [address] [place], [address] Basic Metabolic Profile (BMP )on 07-25-2024 BUN/CRE 35.5 RATIO High 10-20 [facility] Comment on above: Performed By: #### L 100.0100, L101.9900, L500.2500 ####[facility] [address] [place], [address] CA,Total 8.7 mg/dL Normal 8.5-10.1 [facility] Comment on above: Performed By: #### L 100.0100, L101.9900, L500.2500 ####[facility] [address] [place], [address] Chloride [Moles/Vol] 108 mmol/L High 98-107 [facility] Comment on above: Performed By: #### L 100.0100, L101.9900, L500.2500 ####[facility] [address] [place], [address] CO2 [Moles/Vol] 28.0 mmol/L Normal 21.0-32.0 [facility] Comment on above: Performed By: #### L 100.0100, L101.9900, L500.2500 ####[facility] [address] [place], [address] Creatinine [Mass/Vol] 1.07 mg/dL Normal 0.70-1.30 [facility] Comment on above: Result Comment: The validity of the calculated GFR GFRAA in patients over70 years has not been determined. Clinical correlation isessential. Performed By: #### L 100.0100, L101.9900, L500.2500 ####[facility] [address] [place], [address] ECRCL 64.74 ml/min Normal [facility] Comment on above: Performed By: #### L 100.0100, L101.9900, L500.2500 ####[facility] [address] [place], [address] EST GFR - AA 89 mL/min Normal >60 [facility] Comment on above: Result Comment: Afri can Nepalese GFR Calc Performed By: #### L 100.0100, L101.9900, L500.2500 ####[facility] [address] [place], [address] GAP 4 Low 5-15 [facility] Comment on above: Performed By: #### L 100.0100, L101.9900, L500.2500 ####[facility] [address] [place], [address] GFR/1.73 sq M.predicted among non-blacks MDRD (S/P/Bld) [Vol rate/Area] 73 mL/min/{1.73_m2} Normal >60 [facility] Comment on above: Result Comment: Non- GFR Calc Performed By: #### L 100.0100, L101.9900, L500.2500 ####[facility] [address] [place], [address] Glucose [Mass/Vol] 97 mg/dL Normal 74-106 [facility] Comment on above: Performed By: #### L 100.0100, L101.9900, L500.2500 ####[facility] [address] [place], [address] Potassium [Moles/Vol] 3.6 mmol/L Normal 3.5-5.1 [facility] Comment on above: Performed By: #### L 100.0100, L101.9900, L500.2500 ####[facility] [address] [place], [address] Sodium [Moles/Vol] 140 mmol/L Normal 136-145 [facility] Comment on above: Performed By: #### L 100.0100, L101.9900, L500.2500 ####[facility] [address] [place], [address] Urea nitrogen [Mass/Vol] 38 mg/dL High 7-18 [facility] Comment on above: Performed By: #### L 100.0100, L101.9900, L500.2500 ####[facility] [address] [place], [address] CBC W/Diff, Automatedon 10-2 Absolute Lymph 0.40 X10 3/uL Low 0.83-4.51 [facility] Comment on above: Performed By: #### L 100.0100, L101.9900, L500.2500 ####[facility] [address] [place], [address] Absolute Neut 2.6 X10 3/uL Normal 2.0-7.7 [facility] Comment on above: Performed By: #### L 100.0100, L101.9900, L500.2500 ####[facility] [address] [place], [address] Basophils/100 WBC (Bld) 0.6 % Normal 0-1 [facility] Comment on above: Performed By: #### L 100.0100, L101.9900, L500.2500 ####[facility] [address] [place], [address] Eosinophils/100 WBC (Bld) 2.2 % Normal 0-5 [facility] Comment on above: Performed By: #### L 100.0100, L101.9900, L500.2500 ####[facility] [address] [place], [address] Erythrocyte distribution width (RBC) [Ratio] 14.9 % High 11.6-14.6 [facility] Comment on above: Performed By: #### L 100.0100, L101.9900, L500.2500 ####[facility] [address] [place], [address] Hematocrit (Bld) [Volume fraction] 29.6 % Low 40-54 [facility] Comment on above: Performed By: #### L 100.0100, L101.9900, L500.2500 ####[facility] [address] [place], [address] Hemoglobin (Bld) [Mass/Vol] 9.3 g/dL Low 13.0-16.5 [facility] Comment on above: Performed By: #### L 100.0100, L101.9900, L500.2500 ####[facility] [address] [place], [address] IG% 0.300 Normal 0.0-0.9 [facility] Comment on above: Result Comment: IG% - Immature Granulocytes (promyelocytes, myelocytes andmetamyelocytes) > 1% indicates that a LEFT SHIFT is Present. Performed By: #### L 100.0100, L101.9900, L500.2500 ####[facility] [address] [place], [address] Lymphocytes/100 WBC (Bld) 11.2 % Low 19-41 [facility] Comment on above: Performed By: #### L 100.0100, L101.9900, L500.2500 ####[facility] [address] [place], [address] MCH (RBC) [Entitic mass] 28.5 pg Normal 27.0-32.0 [facility] Comment on above: Performed By: #### L 100.0100, L101.9900, L500.2500 ####[facility] [address] [place], [address] MCHC (RBC) [Mass/Vol] 31.4 g/dL Low 32-36 [facility] Comment on above: Performed By: #### L 100.0100, L101.9900, L500.2500 ####[facility] [address] [place], [address] MCV (RBC) [Entitic vol] 90.8 fL Normal 80-94 [facility] Comment on above: Performed By: #### L 100.0100, L101.9900, L500.2500 ####[facility] [address] [place], [address] Monocytes/100 WBC (Bld) 12.6 % High 0-10 [facility] Comment on above: Performed By: #### L 100.0100, L101.9900, L500.2500 ####[facility] [address] [place], [address] Neutrophils/100 WBC (Bld) 73.1 % High 47-70 [facility] Comment on above: Performed By: #### L 100.0100, L101.9900, L500.2500 ####[facility] [address] [place], [address] Nucleated RBC (Bld) [#/Vol] 0 10*3/uL Normal 0-5 [facility] Comment on above: Performed By: #### L 100.0100, L101.9900, L500.2500 ####[facility] [address] [place], [address] Platelet mean volume (Bld) [Entitic vol] 10.0 fL Normal 6.2-12.0 [facility] Comment on above: Performed By: #### L 100.0100, L101.9900, L500.2500 ####[facility] [address] [place], [address] Platelets (Bld) [#/Vol] 156 10*3/uL Normal 150-450 [facility] Comment on above: Performed By: #### L 100.0100, L101.9900, L500.2500 ####[facility] [address] [place], [address] RBC (Bld) [#/Vol] 3.26 10*6/uL Low 4.6-6.2 [facility] Comment on above: Performed By: #### L 100.0100, L101.9900, L500.2500 ####[facility] [address] [place], [address] RDW SD 50.2 fl High 35.1-43.9 [facility] Comment on above: Performed By: #### L 100.0100, L101.9900, L500.2500 ####[facility] [address] [place], [address] WBC (Bld) [#/Vol] 3.6 10*3/uL Low 4.4-11.0 [facility] Comment on above: Performed By: #### L 100.0100, L101.9900, L500.2500 ####[facility] [address] [place], [address] Erythrocyte Sed Rateon 07-25 SED RATE 25 mm/hr High [facility] Comment on above: Performed By: #### L 100.0100, L101.9900, L500.2500 ####[facility] [address] [place], [address] Vancomycin, Trough Levelon 1 VANCO, TROUGH 14.7 ug/mL Normal 5.0-15.0 [facility] Comment on above: Order Comment: Comme nts: DRAW 30 MIN PRIOR TO [id number] Result Comment: VANC OMYCIN STANDARED DRUG THERAPY TROUGH LEVEL: 5.0 - 15.0 mg/LVANCOMYCIN HIGH INTENSITY THERAPY TROUGH LEVEL: 15.0 - 20.0 mg/LHigh Intensity therapy recommended for serious lifethreatening infections include:- Udqhdqghre-Dodwsyerjwif-Ucvcrkctz (Ventilator/Healtcare Associated)-SepsisPLEASE CONTACT PHARMACY SERVICES (#3329) FOR INTERPRETATIONOF RESULTS. Performed By: #### L 501.8820 ####[facility] [address] [place], [address] Basic Metabolic Profile (BMP )on 07-18-2024 BUN/CRE 35.3 RATIO High 07-16 [facility] Comment on above: Performed By: #### L 100.0100, L101.9900, L500.2500 ####[facility] [address] [place], [address] CA,Total 9.3 mg/dL Normal 8.5-10.1 [facility] Comment on above: Performed By: #### L 100.0100, L101.9900, L500.2500 ####[facility] [address] [place], [address] Chloride [Moles/Vol] 106 mmol/L Normal 98-107 [facility] Comment on above: Performed By: #### L 100.0100, L101.9900, L500.2500 ####[facility] [address] [place], [address] CO2 [Moles/Vol] 29.0 mmol/L Normal 21.0-32.0 [facility] Comment on above: Performed By: #### L 100.0100, L101.9900, L500.2500 ####[facility] [address] [place], [address] Creatinine [Mass/Vol] 1.16 mg/dL Normal 0.70-1.30 [facility] Comment on above: Result Comment: The validity of the calculated GFR GFRAA in patients over70 years has not been determined. Clinical correlation isessential. Performed By: #### L 100.0100, L101.9900, L500.2500 ####[facility] [address] [place], [address] ECRCL 59.42 ml/min Normal [facility] Comment on above: Performed By: #### L 100.0100, L101.9900, L500.2500 ####[facility] [address] [place], [address] EST GFR - AA 81 mL/min Normal >60 [facility] Comment on above: Result Comment: Afri can Nepalese GFR Calc Performed By: #### L 100.0100, L101.9900, L500.2500 ####[facility] [address] [place], [address] GAP 4 Low 5-15 [facility] Comment on above: Performed By: #### L 100.0100, L101.9900, L500.2500 ####[facility] [address] [place], [address] GFR/1.73 sq M.predicted among non-blacks MDRD (S/P/Bld) [Vol rate/Area] 67 mL/min/{1.73_m2} Normal >60 [facility] Comment on above: Result Comment: Non- GFR Calc Performed By: #### L 100.0100, L101.9900, L500.2500 ####[facility] [address] [place], [address] Glucose [Mass/Vol] 102 mg/dL Normal 74-106 [facility] Comment on above: Result Comment: Fast ing Glucose result from 100 to 125 mg/dLsuggests IMPAIRED HOMEOSTASIS per A.D.A. criteria. Performed By: #### L 100.0100, L101.9900, L500.2500 ####[facility] [address] [place], [address] Potassium [Moles/Vol] 4.0 mmol/L Normal 3.5-5.1 [facility] Comment on above: Performed By: #### L 100.0100, L101.9900, L500.2500 ####[facility] [address] [place], [address] Sodium [Moles/Vol] 140 mmol/L Normal 136-145 [facility] Comment on above: Performed By: #### L 100.0100, L101.9900, L500.2500 ####[facility] [address] [place], [address] Urea nitrogen [Mass/Vol] 41 mg/dL High 7-18 [facility] Comment on above: Performed By: #### L 100.0100, L101.9900, L500.2500 ####[facility] [address] [place], [address] CBC W/Diff, Automatedon 10-2 Absolute Lymph 0.46 X10 3/uL Low 0.83-4.51 [facility] Comment on above: Performed By: #### L 100.0100, L101.9900, L500.2500 ####[facility] [address] [place], [address] Absolute Neut 3.4 X10 3/uL Normal 2.0-7.7 [facility] Comment on above: Performed By: #### L 100.0100, L101.9900, L500.2500 ####[facility] [address] [place], [address] Basophils/100 WBC (Bld) 1.1 % High 0-1 [facility] Comment on above: Performed By: #### L 100.0100, L101.9900, L500.2500 ####[facility] [address] [place], [address] Eosinophils/100 WBC (Bld) 2.6 % Normal 0-5 [facility] Comment on above: Performed By: #### L 100.0100, L101.9900, L500.2500 ####[facility] [address] [place], [address] Erythrocyte distribution width (RBC) [Ratio] 15.2 % High 11.6-14.6 [facility] Comment on above: Performed By: #### L 100.0100, L101.9900, L500.2500 ####[facility] [address] [place], [address] Hematocrit (Bld) [Volume fraction] 30.6 % Low 40-54 [facility] Comment on above: Performed By: #### L 100.0100, L101.9900, L500.2500 ####[facility] [address] [place], [address] Hemoglobin (Bld) [Mass/Vol] 9.8 g/dL Low 13.0-16.5 [facility] Comment on above: Performed By: #### L 100.0100, L101.9900, L500.2500 ####[facility] [address] [place], [address] IG% 0.700 Normal 0.0-0.9 [facility] Comment on above: Result Comment: IG% - Immature Granulocytes (promyelocytes, myelocytes andmetamyelocytes) > 1% indicates that a LEFT SHIFT is Present. Performed By: #### L 100.0100, L101.9900, L500.2500 ####[facility] [address] [place], [address] Lymphocytes/100 WBC (Bld) 10.1 % Low 19-41 [facility] Comment on above: Performed By: #### L 100.0100, L101.9900, L500.2500 ####[facility] [facility] [address] [place], [address] MCH (RBC) [Entitic mass] 28.9 pg Normal 27.0-32.0 [facility] Comment on above: Performed By: #### L 100.0100, L101.9900, L500.2500 ####[facility] [address] [place], [address] MCHC (RBC) [Mass/Vol] 32.0 g/dL Normal 32-36 [facility] Comment on above: Performed By: #### L 100.0100, L101.9900, L500.2500 ####[facility] [address] [place], [address] MCV (RBC) [Entitic vol] 90.3 fL Normal 80-94 [facility] Comment on above: Performed By: #### L 100.0100, L101.9900, L500.2500 ####[facility] [address] [place], [address] Monocytes/100 WBC (Bld) 11.2 % High 0-10 [facility] Comment on above: Performed By: #### L 100.0100, L101.9900, L500.2500 ####[facility] [address] [place], [address] Neutrophils/100 WBC (Bld) 74.3 % High 47-70 [facility] Comment on above: Performed By: #### L 100.0100, L101.9900, L500.2500 ####[facility] [address] [place], [address] Nucleated RBC (Bld) [#/Vol] 0 10*3/uL Normal 0-5 [facility] Comment on above: Performed By: #### L 100.0100, L101.9900, L500.2500 ####[facility] [address] [place], [address] Platelet mean volume (Bld) [Entitic vol] 10.0 fL Normal 6.2-12.0 [facility] Comment on above: Performed By: #### L 100.0100, L101.9900, L500.2500 ####[facility] [address] [place], [address] Platelets (Bld) [#/Vol] 223 10*3/uL Normal 150-450 [facility] Comment on above: Performed By: #### L 100.0100, L101.9900, L500.2500 ####[facility] [address] [place], [address] RBC (Bld) [#/Vol] 3.39 10*6/uL Low 4.6-6.2 [facility] Comment on above: Performed By: #### L 100.0100, L101.9900, L500.2500 ####[facility] [address] [place], [address] RDW SD 50.6 fl High 35.1-43.9 [facility] Comment on above: Performed By: #### L 100.0100, L101.9900, L500.2500 ####[facility] [address] [place], [address] WBC (Bld) [#/Vol] 4.6 10*3/uL Normal 4.4-11.0 [facility] Comment on above: Performed By: #### L 100.0100, L101.9900, L500.2500 ####[facility] [address] [place], [address] Erythrocyte Sed Rateon 07-18 SED RATE 29 mm/hr High 0-20 [facility] Comment on above: Performed By: #### L 100.0100, L101.9900, L500.2500 ####[facility] [address] [place], [address] Vancomycin, Trough Levelon 1 VANCO, TROUGH 15.2 ug/mL High 5.0-15.0 [facility] Comment on above: Order Comment: Comme nts: DRAW 30 MIN PRIOR TO [id number] Result Comment: VANC OMYCIN STANDARED DRUG THERAPY TROUGH LEVEL: 5.0 - 15.0 mg/LVANCOMYCIN HIGH INTENSITY THERAPY TROUGH LEVEL: 15.0 - 20.0 mg/LHigh Intensity therapy recommended for serious lifethreatening infections include:- Dalodbweoa-Gquylqjrrckx-Qqryfigkf (Ventilator/Healtcare Associated)-SepsisPLEASE CONTACT PHARMACY SERVICES (#7281) FOR INTERPRETATIONOF RESULTS. Performed By: #### L 501.8820 ####[facility] [address] [place], [place], [address] SARS-CoV-2 (COVID-19) Ag IA. rapid Ql (Resp)Ordered By: Burt Kaba on 07-11-2024 SARS-CoV-2 Antigen (Rapid) [facility] 36on 07-07-2024 36 Spoke with Gabbi, on e of the nurse's from [facility] regarding the status of patient, since it has been awhile since our office has seen patient. Gabbi stated patient is still currently admitted to [facility], that the patient will not be able to return to [facility] as of now. 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 Gabbi provided the phone number for Jaclyn, a social service liaison with [facility] for the patient. Spoke with Jaclyn, who then advised Mala is the patient's SW. Spoke With Mala, she stated patient will stay with [facility] until over the weekend. Surgeon will reevaluate [...] back after Wednesday morning for any updates. [facility] 36on 06-28-2024 36 Attempted to contact patient. Unsuccessful. Phone had a continuous ring with no voicemail. Regarding scheduling patient an appointment with Dr. Munoz. [facility] PATINSon 06-14-2024 PATINS Follow-up Appointmen ts with Dr. Munoz Return Appointment in 1 week. Call [facility] at [phone], [facility] at [phone], or [facility]ound center at [phone]. Follow nutritious diet including, increasing protein to [...] for wound, take as directed. Directions for Assisted: If wound loses suction: Remove snap back [...] diabetics Please call the wound center at [phone] if you are experiencing this. If we are closed and you are unable to reach us in person please go to the ER. [facility] Living [facility] Progress Noteon 06-14-2024 Progress Note Assessments Nursing [...] Test Results/Process Orders 10 [] Staff telephones [facility], Nursing Homes/Clarify Orders 10 [x] Routine Transfer [...] Points) Level 5 (160 or more Points) [facility] 06-05-2024 [facility] Follow-up Appointmen ts with Dr. Munoz Return Appointment in 1 week. Call [facility] at [phone], [facility] at [phone], or [facility] Wound center at [phone]. Follow nutritious diet including, increasing protein to [...] weekly shower or tub bath. Directions for Assisted: If wound loses suction: Remove snap back [...] diabetics Please call the wound center at [phone] if you are experiencing this. If we are closed and you are unable to reach us in person please go to the ER. [facility] 05-24-2024 PATI Follow-up Appointmen ts with Dr. Munoz Return Appointment in 1 week. Call [facility] at [phone], [facility] at [phone], or [facility] center at [phone]. Follow nutritious diet including, increasing protein to [...] weekly shower or tub bath. Directions for Assisted: If wound loses suction: Remove snap back [...] diabetics Please call the wound center at [phone] if you are experiencing this. If we are closed and you are unable to reach us in person please go to the ER. [facility] 05-17-2024 [facility] Follow-up Appointmen ts with Dr. Munoz Return Appointment in 1 week. Call [facility] at [phone], [facility] at [phone], or [facility] center at [phone]. Follow nutritious diet including, increasing protein to [...] weekly shower or tub bath. Directions for Assisted: If wound loses suction: Remove snap back [...] diabetics Please call the wound center at [phone] if you are experiencing this. If we are closed and you are unable to reach us in person please go to the ER. [facility] 05-08-2024 PATI Follow-up Appointmen ts with Dr. Munoz Return Appointment in 1 week. Call [facility] at [phone], [facility] at [phone], or [facility] Wound center at [phone]. Follow nutritious diet including, increasing protein to [...] weekly shower or tub bath. Directions for Assisted: If wound loses suction: Remove snap back [...] diabetics Please call the wound center at [phone] if you are experiencing this. If we are closed and you are unable to reach us in person please go to the ER. [facility] 05-03-2024 RUBIA Follow-up Appointments: On Tuesday 05/08 with MERCHANDISING DIRECTOR to change SNAP then follow up with Dr. Munoz the following week. Call [facility] at [phone], [facility] at [phone], or [facility] Wound center at [phone]. Follow nutritious diet including, increasing protein to [...] weekly shower or tub bath. Directions for Assisted: If wound loses suction: Remove snap back [...] diabetics Please call the wound center at [phone] if you are experiencing this. If we are closed and you are unable to reach us in person please go to the ER. [facility] 04-26-2024 [facility] Follow-up Appointments: [address] Munoz Return Appointment in 1 week. Call [facility] at [phone], [facility] at [phone], or [facility] Wound center at [phone]. Follow nutritious diet including, increasing protein to [...] weekly shower or tub bath. Directions for Assisted: If wound loses suction: Remove snap back [...] diabetics Please call the wound center at [phone] if you are experiencing this. If we are closed and you are unable to reach us in person please go to the ER. [facility] 04-19-2024 PATIMERRY Follow-up Appointments: [address] Munoz Return Appointment in 1 week. Call [facility] at [phone], [facility] at [phone], or [facility] center at [phone]. Follow nutritious diet including, increasing protein to [...] diabetics Please call the wound center at [phone] if you are experiencing this. If we are closed and you are unable to reach us in person please go to the ER. [facility] 04-11-2024 PATINS Follow-up Appointments: Return Appointment 2 xs a week. Call [facility] at [phone], [facility] at [phone], or [facility] center at [phone]. Follow nutritious diet including, increasing protein to [...] diabetics Please call the wound center at [phone] if you are experiencing this. If we are closed and you are unable to reach us in person please go to the ER. [facility] 04-05-2024 [facility] Follow-up Appointments: Return Appointment 2 xs a week. Call [facility] at [phone], [facility] at [phone], or [facility] Wound center at [phone]. Follow nutritious diet including, increasing protein to [...] diabetics Please call the wound center at [phone] if you are experiencing this. If we are closed and you are unable to reach us in person please go to the ER. [facility] Follow-up Appointments: Return Appointment in 1 week. Call [facility] at [phone], [facility] at [phone], or [facility] Wound center at [phone]. Follow nutritious diet including, increasing protein to [...] diabetics Please call the wound center at [phone] if you are experiencing this. If we are closed and you are unable to reach us in person please go to the ER. Wound Center will apply for SNAP vac through insurance for approval If approved, it will begin at the next wound care appointment [facility]I Follow-up Appointments: Return Appointment in 1 week. Call [facility] at [phone], [facility] at [phone], or [facility] Wound center at [phone]. Follow nutritious diet including, increasing protein to [...] diabetics Please call the wound center at [phone] if you are experiencing this. If we are closed and you are unable to reach us in person please go to the ER. Normal [facility] Progress Noteon 03-22-2024 Progress Note [facility] WND OSTOMY [address] [place] [address] Loc: [phone] Wound Care Visit - New Patient Progress [...] ?C (98.6 ?F) Resp 18 Ht 5' 5" (1.651 m) Wt 174 lb (78.9 kg) [...] (Active) Wound Image 03/22/24 1041 Site Assessment Bug Tussle;Pale;Sloughing 03/22/24 1041 Ritika-Wound Assessment Bug Tussle;Scarred 03/22/24 1041 Wound Length (cm) 7.9 (more content not included)... Normal [facility] CBC AND ELECTRONIC DIFFon Basophils (Bld) [#/Vol] K/uL 0.00 - 0.09 K/uL [facility] Basophils/100 WBC (Bld) 1.6 % O [facility] Differential cell count method Nom (Bld) Electronic Differential [facility] Eosinophils (Bld) [#/Vol] 0.21 10*3/uL 0.00 - 0.48 K/uL [facility] Eosinophils/100 WBC (Bld) 10.9 % [facility] Erythrocyte distribution width (RBC) [Ratio] 16.1 % High 10.9 - 14.3 % [facility] Hematocrit (Bld) [Volume fraction] 40.3 % 39.6 - 48.8 % [facility] Hemoglobin (Bld) [Mass/Vol] 12.7 g/dL Low 13.4 - 16.8 g/dL [facility] Immature granulocytes (Bld) [#/Vol] K/uL NINF - 0.07 K/uL [facility] Immature granulocytes/100 WBC (Bld) 0.0 % [facility] Interpretation and review of laboratory results Abnormal [facility] Lymphocytes (Bld) [#/Vol] 0.32 10*3/uL Low 0.83 - 3.57 K/uL [facility] Lymphocytes/100 WBC (Bld) 16.6 % [facility] MCH (RBC) [Entitic mass] 27.9 pg 26. 1 - 33.3 pg [facility] MCHC (RBC) [Mass/Vol] 31.5 g/dL Low 31.9 - 36.5 g/dL [facility] MCV (RBC) [Entitic vol] 88.4 fL 79.0 - 94.5 fL [facility] Monocytes (Bld) [#/Vol] 0.33 10*3/uL 0.24 - 0.93 K/uL [facility] Monocytes/100 WBC (Bld) 17.1 % [facility] Neutrophils (Bld) [#/Vol] 1.04 10*3/uL Low 1.57 - 6.19 K/uL [facility] Nucleated RBC/100 WBC (Bld) [Ratio] 0.0 % [facility] Platelet mean volume (Bld) [Entitic vol] 11.8 fL 8.7 - 12.3 fL [facility] Platelets (Bld) [#/Vol] 115 10*3/uL Low 146 - 337 K/uL [facility] RBC (Bld) [#/Vol] 4.56 10*6/uL [facility] Segmented neutrophils/100 WBC (Bld) 53.8 % [facility] WBC (Bld) [#/Vol] 1.93 10*3/uL Low 3.73 - 10.10 K/uL [facility] COMPREHENSIVE METABOLIC PANE Jim 03-08-2024 Albumin [Mass/Vol] 3.7 g/dL 3.5 - 5.0 g/dL [facility] ALP [Catalytic activity/Vol] 48 U/L 32 - 126 U/L [facility] ALT [Catalytic activity/Vol] 9 U/L Low 10 - 52 U/L [facility] Anion gap [Moles/Vol] 10 mmol/L 7 - 17 mmol/L [facility] AST [Catalytic activity/Vol] 12 U/L 10 - 39 U/L [facility] Bilirubin [Mass/Vol] 0.5 mg/dL NINF - 1.5 mg/dL [facility] Calcium [Mass/Vol] 8.8 mg/dL 8.6 - 10. 5 mg/dL [facility] Chloride [Moles/Vol] 102 mmol/L 98 - 10 8 mmol/L [facility] CO2 [Moles/Vol] 31 mmol/L 21 - 31 mmol/L [facility] Creatinine [Mass/Vol] 0.87 mg/dL 0.70 - 1.30 mg/dL [facility] eGFR, CKD-EPI, Male - PINF [facility] Comment on above: Reported eGFR is bas ed on the CKD-EPI 2020 equation using creatinine, age, and sex. Glucose [Mass/Vol] 90 mg/dL 70 - 99 mg/dL [facility] Interpretation and review of laboratory results Abnormal [facility] Osmolality Calc [Osmolality] 291 [facility] Potassium [Moles/Vol] 3.9 mmol/L 3.5 - 5.0 mmol/L [facility] Protein [Mass/Vol] 6.2 g/dL Low 6.4 - 8.3 g/dL [facility] Sodium [Moles/Vol] 139 mmol/L 135 - 145 mmol/L [facility] Urea nitrogen [Mass/Vol] 14 mg/dL 7 - 25 mg/dL [facility] Urea nitrogen/Creatinine [Mass ratio] 16 [facility] IMMUNOGLOBULIN FREE CHAINSOr dered By: Andreea Almanzar on 03-08-2024 Immunoglobulin light chains.kappa.free (S) [Mass/Vol] 17.0 mg/L 3.9 - 26.0 mg/L [facility] Immunoglobulin light chains.kappa.free/Immuno globulin light chains.lambda (S) [Mass ratio] 1.56 0.51 - 1.72 [facility] Immunoglobulin light chains.lambda.free [Mass/Vol] 10.9 mg/L 6.4 - 22.1 mg/L [facility] Interpretation and review of laboratory results Normal [facility] Undetected antigen excess is a rare event [...] should be discussed with the testing laboratory. [facility] IMMUNOGLOBULINS IGG IGA IGMO rdered By: Kofi Guzman on 03-08-2024 IgA [Mass/Vol] 64 mg/dL Low 90 - 410 mg/dL [facility] IgG [Mass/Vol] 581 mg/dL Low 600 - 1560 mg/dL [facility] IgM [Mass/Vol] mg/dL Low 30 - 360 mg/dL [facility] Comment on above: Repeated and verifie d Interpretation and review of laboratory results Abnormal [facility] SPE SERUM TOTAL PROTEINon Interpretation and review of laboratory results Abnormal [facility] Protein [Mass/Vol] 5.8 g/dL Low 6.4 - 8.3 g/dL [facility] Absolute lymphocyte countOrd ered By: Jenn Perez on 01-19-2024 Lymphocytes Auto (Unsp spec) [#/Vol] 0.51 10*3/uL 0.83-4.51 [facility] Albumin Elph [Mass/Vol]Order ed By: Jenn Perez on 01-19-2024 Albumin [Mass/Vol] 3.3 g/dL 2.9-4.4 [facility] Automated lymphocyte count a s percentage of total leukocytesOrdered By: Jenn Perez on 01-19-2024 Lymphocytes/100 WBC Auto (Unsp spec) 16.1 % 19-41 [facility] Basophil percentageOrdered B y: Jenn Perez on 01-19-2024 Basophils/100 WBC (Bld) 2.2 % 0-1 [facility] Bilirubin [Mass/Vol] 0.30 mg/dL 0.20-1.00 [facility] Comment on above: For patients on eltr ombopag therapy, use of [employer] [place] TBIL is not recommended. Chloride [Moles/Vol] 105 mmol/L 98-107 [facility] Eosinophils/100 WBC (Bld) 2.8 % 0-5 [facility] Glucose [Mass/Vol] 102 mg/dL 74-106 [facility] Comment on above: Fasting Glucose resu lt from 100 to 125 mg/dL suggests IMPAIRED HOMEOSTASIS per A.D.A. criteria. Hemoglobin (Bld) [Mass/Vol] 11.9 g/dL 13.0-16.5 [facility] Monocytes/100 WBC (Bld) 12.9 % 0-10 [facility] Neutrophils (Bld) [#/Vol] 2.1 10*3/uL 2.0-7.7 [facility] Neutrophils/100 WBC (Bld) 65.4 % 47-70 [facility] Potassium [Moles/Vol] 4.2 mmol/L 3.5-5.1 [facility] Protein [Mass/Vol] 6.1 g/dL 6.4-8.2 [facility] Sodium [Moles/Vol] 139 mmol/L 136-145 [facility] WBC (Bld) [#/Vol] 3.2 10*3/uL 4.4-11.0 [facility] Determination of erythrocyte mean corpuscular volume (MCV)Ordered By: Jenn Perez on 01-19-2024 MCV (RBC) [Entitic vol] 88.0 fL 80-94 [facility] Erythrocyte distribution wid th ratioOrdered By: Jenn Perez on 01-19-2024 Erythrocyte distribution width (RBC) [Ratio] 16.6 % 11.6-14.6 [facility] Erythrocyte distribution wid th standard deviationOrdered By: [facility] Chris on 01-19-2024 Erythrocyte distribution width (RBC) [Entitic vol] 53.2 fL 35.1-43.9 [facility] Hematocrit Auto (Bld) [Volum e fraction]Ordered By: [facility] on 01-19-2024 Hematocrit (Bld) [Volume fraction] 37.5 % 40-54 [facility] Immature granulocytes/100 WB C Auto (Bld)Ordered By: [facility] Chris on 01-19-2024 Immature granulocytes/100 WBC (Bld) 0.600 % 0.0-0.9 [facility] Comment on above: IG% - Immature Granu locytes (promyelocytes, myelocytes and metamyelocytes) > 1% indicates that a LEFT SHIFT is Present. Interpretation of serum or p lasma protein pattern by immunofixation (narrative resultOrdered By: Jenn Perez on 01-19-2024 Protein Fractions Immunofixation Johnny [Interp] Not Observed g/dL Not Observed [facility] Laboratory - Chemistry and C hemistry - challengeOrdered By: [facility] Chris on 01-19-2024 Albumin/Globulin [Mass ratio] 1.0 {ratio} 0.9-2.4 [facility] ALP [Catalytic activity/Vol] 56 U/L 45-117 [facility] ALT [Catalytic activity/Vol] 11 U/L 16-61 [facility] CO2 [Moles/Vol] 31.0 mmol/L 21.0-32.0 [facility] Urea nitrogen/Creatinine [Mass ratio] 31.0 mg/mg 10-20 [facility] Laboratory - Hematology and Cell countsOrdered By: Jenn Perez on 01-19-2024 MCH (RBC) [Entitic mass] 27.9 pg 27.0-32.0 [facility] MCHC (RBC) [Mass/Vol] 31.7 g/dL 32-36 [facility] Nucleated RBC/100 WBC (Bld) [Ratio] 0 % 0-5 [facility] Platelet mean volume (Bld) [Entitic vol] 11.2 fL 6.2-12.0 [facility] Platelets (Bld) [#/Vol] 167 10*3/uL 150-450 [facility] No Panel InformationOrdered By: Jenn Perez on 01-19-2024 Addendum Document Comment . [facility] Comment on above: Protein electrophore sis scan will follow via computer,mail, or forging die sinker delivery. Estimated Creatinine Clearance Calc 90.76 ml/min [facility] Estimated GFR (MDRD) Amer 129 mL/min >60 [facility] Comment on above: GFR Calc Estimated GFR (MDRD) Non-Af Amer 107 mL/min >60 [facility] Comment on above: Non- GFR Calc Free Lambda Light Chains, Quant 7.1 mg/L 5.7-26.3 [facility] Immunoglobulin M 10 mg/dL 20-172 [facility] Comment on above: Result confirmed on concentration. RBC Auto (Bld) [#/Vol]Ordere d By: Jenn Perez on 01-19-2024 RBC (Bld) [#/Vol] 4.26 10*6/uL 4.6-6.2 [facility] Serum uzfnt-0-wekucwps measu rement by electrophoresisOrdered By: Jenn Perez on 01-19-2024 Alpha 1 globulin Elph [Mass/Vol] 0.2 g/dL 0.0-0.4 [facility] Alpha 1 globulin Elph [Mass/Vol] 0.8 g/dL 0.4-1.0 [facility] Serum globulin measurement ( mass/volume)Ordered By: Jenn Perez on 01-19-2024 Globulin (S) [Mass/Vol] 2.2 g/dL 2.2-3.9 [facility] Serum immunoglobulin kappa l ight chains/immunoglobulin lambda light chains mass ratioOrdered By: Jenn Perez on 01-19-2024 Immunoglobulin light chains.kappa/Immunoglobu dav light chains.lambda (S) [Mass ratio] 1.69 0.26-1.65 [facility] Comment on above: Performed at: - [facility] [id number] [place], [place] [id number] Director: Micky Arreola PhD, Phone: [phone] Serum or plasma IgA measurem ent (mass/volume)Ordered By: Jenn Perez on 01-19-2024 IgA [Mass/Vol] 69 mg/dL 61-437 [facility] [facility] Serum or plasma IgG measurem ent (mass/volume)Ordered By: Jenn Perez on 01-19-2024 IgG [Mass/Vol] 599 mg/dL [phone] [facility] Serum or plasma beta globuli n measurement by electrophoresis (mass/volume)Or[facility] By: [facility] 01-19-2024 Beta globulin Elph [Mass/Vol] 0.8 g/dL 0.7-1.3 [facility] Serum or plasma calcium giovanny urement (mass/volume)Ordered By: Jenn Perez on 01-19-2024 Calcium [Mass/Vol] 8.9 mg/dL 8.5-10.1 [facility] Serum or plasma creatinine m easurement (mass/volume)Ordered By: Jenn Perez on 01-19-2024 Creatinine [Mass/Vol] 0.78 mg/dL 0.70-1.30 [facility] Comment on above: The validity of the calculated GFR & GFRAA in patients over 70 years has not been determined. Clinical correlation is essential. Serum or plasma gamma globul in measurement by electrophoresis (mass/volume)Ordered By: Jenn Perez on 01-19-2024 Gamma globulin Elph [Mass/Vol] 0.4 g/dL 0.4-1.8 [facility] Serum or plasma immunoelectr ophoresis interpretation (nominal result)Ordered By: [facility] on 01-19-2024 Interpretation IEP [Interp] Comment: . [facility] Comment on above: Presence of monoclon al protein is unclear at this time. Suggestrepeat in 3 to 6 months if clinically indicated. Serum or plasma immunoglobul in kappa light chains measurement (mass/volume)Ordered By: Jenn Perez on 01-19-2024 Immunoglobulin light chains.kappa [Mass/Vol] 12.0 mg/L 3.3-19.4 [facility] Serum or plasma urea nitroge n measurement (mass/volume)Ordered By: [facility] on 01-19-2024 Urea nitrogen [Mass/Vol] 24 mg/dL 7-18 [facility] Thin prep Papanicolaou smear with manual screeningOrdered By: [facility] on 01-19-2024 Thin prep Papanicolaou smear with manual screening 3.0 g/dL 3.2-5.0 [facility] Thin prep Papanicolaou smear with manual screening 9 U/L 15-37 [facility] Thin prep Papanicolaou smear with manual screening 3 5-15 [facility] Thin prep Papanicolaou smear with manual screening 1.6 0.7-1.7 [facility] Total protein bloodOrdered B y: [facility] on 01-19-2024 Protein [Mass/Vol] 5.5 g/dL 6.0-8.5 [facility] Basophil percentageOrdered B y: Iraida Balderas on 01-13-2024 Bilirubin [Mass/Vol] 0.60 mg/dL 0.20-1.00 [facility] Comment on above: For patients on eltr ombopag therapy, use of Dimension [place] TBIL is not recommended. Chloride [Moles/Vol] 104 mmol/L 98-107 [facility] Cholesterol [Mass/Vol] 162 mg/dL <200 [facility] Comment on above: <200 mg/dL Desirable 200-240 mg/dL Borderline >240 mg/dL High Risk Glucose [Mass/Vol] 99 mg/dL 74-106 [facility] Hemoglobin (Bld) [Mass/Vol] 12.3 g/dL 13.0-16.5 [facility] Potassium [Moles/Vol] 3.2 mmol/L 3.5-5.1 [facility] Protein [Mass/Vol] 6.0 g/dL 6.4-8.2 [facility] Sodium [Moles/Vol] 140 mmol/L 136-145 [facility] Triglyceride [Mass/Vol] 86 mg/dL <199 [facility] Comment on above: The drugs N-Acetylcy steine and Metamizole may falsely depress this assay.Serum Triglycerides Reference Interval Normal <150 mg/dL Borderline high 150 - 199 mg/dL High 200 - 499 mg/dL Very High > or = 500 mg/dL WBC (Bld) [#/Vol] 1.6 10*3/uL 4.4-11.0 [facility] Determination of erythrocyte mean corpuscular volume (MCV)Ordered By: Iraida Balderas on 01-13-2024 MCV (RBC) [Entitic vol] 89.5 fL 80-94 [facility] Erythrocyte distribution wid th ratioOrdered By: Iraida Balderas on 01-13-2024 Erythrocyte distribution width (RBC) [Ratio] 16.3 % 11.6-14.6 [facility] Erythrocyte distribution wid th standard deviationOrdered By: Iraida Balderas on 01-13-2024 Erythrocyte distribution width (RBC) [Entitic vol] 52.7 fL 35.1-43.9 [facility] Hematocrit Auto (Bld) [Volum e fraction]Ordered By: Iraida Balderas on 01-13-2024 Hematocrit (Bld) [Volume fraction] 39.3 % 40-54 [facility] Laboratory - Chemistry and C hemistry - challengeOrdered By: Iraida Balderas on 01-13-2024 Albumin/Globulin [Mass ratio] 1.1 {ratio} 0.9-2.4 [facility] ALP [Catalytic activity/Vol] 57 U/L 45-117 [facility] ALT [Catalytic activity/Vol] 16 U/L 16-61 [facility] Cholesterol in HDL [Mass/Vol] 55 mg/dL >40 [facility] Comment on above: The drugs N-Acetylcy steine and Metamizole may falsely depress this assay. Reference Range HDL <40 mg/dL Low HDL Cholesterol HDL >or= 60 mg/dL High HDL Cholesterol Cholesterol in LDL [Mass/Vol] 90 mg/dL 0-130 [facility] CO2 [Moles/Vol] 30.0 mmol/L 21.0-32.0 [facility] Globulin (S) [Mass/Vol] 2.8 g/dL 2.2-4.2 [facility] Urea nitrogen/Creatinine [Mass ratio] 14.7 mg/mg 10-20 [facility] Laboratory - Hematology and Cell countsOrdered By: Iraida Balderas on 01-13-2024 MCH (RBC) [Entitic mass] 28.0 pg 27.0-32.0 [facility] MCHC (RBC) [Mass/Vol] 31.3 g/dL 32-36 [facility] Platelet mean volume (Bld) [Entitic vol] 12.0 fL 6.2-12.0 [facility] Platelets (Bld) [#/Vol] 137 10*3/uL 150-450 [facility] No Panel InformationOrdered By: Iraida Balderas on 01-13-2024 Estimated GFR (MDRD) Amer 110 mL/min >60 [facility] Comment on above: GFR Calc Estimated GFR (MDRD) Non-Af Amer 91 mL/min >60 [facility] Comment on above: Non- GFR Calc Vitamin D 25-Hydroxy 111.6 ng/mL [facility] Comment on above: Vitamin D 25(OH) Sta [...] test results. VLDL Cholesterol 17 mg/dL 5-40 [facility] RBC Auto (Bld) [#/Vol]Ordere d By: Iraida Balderas on 01-13-2024 RBC (Bld) [#/Vol] 4.39 10*6/uL 4.6-6.2 [facility] Serum or plasma calcium giovanny urement (mass/volume)Ordered By: Iraida Balderas on 01-13-2024 Calcium [Mass/Vol] 8.8 mg/dL 8.5-10.1 [facility] Serum or plasma creatinine m easurement (mass/volume)Ordered By: Iraida Balderas on 01-13-2024 Creatinine [Mass/Vol] 0.89 mg/dL 0.70-1.30 [facility] Comment on above: The validity of the calculated GFR & GFRAA in patients over 70 years has not been determined. Clinical correlation is essential. Serum or plasma thyroid stim ulating hormone (TSH) measurement (units/volume)Ordered By: Iraida Balderas on 01-13-2024 TSH Qn 2.44 uIU/mL 0.358-3.74 [facility] Serum or plasma urea nitroge n measurement (mass/volume)Ordered By: Iraida Balderas on 01-13-2024 Urea nitrogen [Mass/Vol] 13 mg/dL 7-18 [facility] Thin prep Papanicolaou smear with manual screeningOrdered By: Iraida Balderas on 01-13-2024 Thin prep Papanicolaou smear with manual screening 3.2 g/dL 3.2-5.0 [facility] Thin prep Papanicolaou smear with manual screening 12 U/L 15-37 [facility] Thin prep Papanicolaou smear with manual screening 6 5-15 [facility] Thin prep Papanicolaou smear with manual screening 1.30 ng/dL 0.76-1.46 [facility] Anaerobic cultureOrdered By: Te Shah on 12-30-2023 Bacteria identified Anaer cx Nom (Unsp spec) No anaerobic bacteria isolated. [facility] Bacteria identified Cx Nom ( Wound)Ordered By: Te Shah on 12-30-2023 Wound Culture Meth. resistant Stap h. aureus [facility] Wound Culture Streptococcus agalactiae (B) [facility] Wound Culture Staphylococcus capitis [facility] Gram stain for investigation of transfusion reactionOrdered By: Te Shah on 12-30-2023 Microscopic observation Gram stain Nom (Unsp spec) [facility] Absolute lymphocyte countOrd ered By: Jenn Perez on 12-22-2023 Lymphocytes Auto (Unsp spec) [#/Vol] 0.50 10*3/uL 0.83-4.51 [facility] Automated lymphocyte count a s percentage of total leukocytesOrdered By: Jenn Perez on 12-22-2023 Lymphocytes/100 WBC Auto (Unsp spec) 14.1 % 19-41 [facility] Basophil percentageOrdered B y: Jenn Perez on 12-22-2023 Basophils/100 WBC (Bld) 2.3 % 0-1 [facility] Bilirubin [Mass/Vol] 0.20 mg/dL 0.20-1.00 [facility] Comment on above: For patients on eltr ombopag therapy, use of Dimension [place] TBIL is not recommended. Chloride [Moles/Vol] 106 mmol/L 98-107 [facility] Eosinophils/100 WBC (Bld) 4.5 % 0-5 [facility] Glucose [Mass/Vol] 98 mg/dL 74-106 [facility] Hemoglobin (Bld) [Mass/Vol] 12.1 g/dL 13.0-16.5 [facility] Monocytes/100 WBC (Bld) 16.3 % 0-10 [facility] Neutrophils (Bld) [#/Vol] 2.2 10*3/uL 2.0-7.7 [facility] Neutrophils/100 WBC (Bld) 62.5 % 47-70 [facility] Potassium [Moles/Vol] 3.9 mmol/L 3.5-5.1 [facility] Protein [Mass/Vol] 6.1 g/dL 6.4-8.2 [facility] Sodium [Moles/Vol] 140 mmol/L 136-145 [facility] WBC (Bld) [#/Vol] 3.6 10*3/uL 4.4-11.0 [facility] Determination of erythrocyte mean corpuscular volume (MCV)Ordered By: Jenn Perez on 12-22-2023 MCV (RBC) [Entitic vol] 88.3 fL 80-94 [facility] Erythrocyte distribution wid th ratioOrdered By: [facility] on 12-22-2023 Erythrocyte distribution width (RBC) [Ratio] 15.6 % 11.6-14.6 [facility] Erythrocyte distribution wid th standard deviationOrdered By: [facility] Chris on 12-22-2023 Erythrocyte distribution width (RBC) [Entitic vol] 50.7 fL 35.1-43.9 [facility] Hematocrit Auto (Bld) [Volum e fraction]Ordered By: Jenn Perez on 12-22-2023 Hematocrit (Bld) [Volume fraction] 38.6 % 40-54 [facility] Immature granulocytes/100 WB C Auto (Bld)Ordered By: Jenn Perez on 12-22-2023 Immature granulocytes/100 WBC (Bld) 0.300 % 0.0-0.9 [facility] Comment on above: IG% - Immature Granu locytes (promyelocytes, myelocytes and metamyelocytes) > 1% indicates that a LEFT SHIFT is Present. Laboratory - Chemistry and C hemistry - challengeOrdered By: [facility] on 12-22-2023 Albumin/Globulin [Mass ratio] 1.0 {ratio} 0.9-2.4 [facility] ALP [Catalytic activity/Vol] 62 U/L 45-117 [facility] ALT [Catalytic activity/Vol] 12 U/L 16-61 [facility] CO2 [Moles/Vol] 28.0 mmol/L 21.0-32.0 [facility] Globulin (S) [Mass/Vol] 3.1 g/dL 2.2-4.2 [facility] Urea nitrogen/Creatinine [Mass ratio] 20.3 mg/mg 10-20 [facility] Laboratory - Hematology and Cell countsOrdered By: Jenn Perez on 12-22-2023 MCH (RBC) [Entitic mass] 27.7 pg 27.0-32.0 [facility] MCHC (RBC) [Mass/Vol] 31.3 g/dL 32-36 [facility] Nucleated RBC/100 WBC (Bld) [Ratio] 0 % 0-5 [facility] Platelet mean volume (Bld) [Entitic vol] 10.6 fL 6.2-12.0 [facility] Platelets (Bld) [#/Vol] 184 10*3/uL 150-450 [facility] No Panel InformationOrdered By: Jenn Perez on 12-22-2023 Estimated Creatinine Clearance Calc 87.11 ml/min [facility] Estimated GFR (MDRD) Amer 118 mL/min >60 [facility] Comment on above: GFR Calc Estimated GFR (MDRD) Non-Af Amer 97 mL/min >60 [facility] Comment on above: Non- GFR Calc RBC Auto (Bld) [#/Vol]Ordere d By: Jenn Perez on 12-22-2023 RBC (Bld) [#/Vol] 4.37 10*6/uL 4.6-6.2 [facility] Serum or plasma calcium giovanny urement (mass/volume)Ordered By: Jenn Perez on 12-22-2023 Calcium [Mass/Vol] 8.9 mg/dL 8.5-10.1 [facility] Serum or plasma creatinine m easurement (mass/volume)Ordered By: Jenn Perez on 12-22-2023 Creatinine [Mass/Vol] 0.84 mg/dL 0.70-1.30 [facility] Comment on above: The validity of the calculated GFR & GFRAA in patients over 70 years has not been determined. Clinical correlation is essential. Serum or plasma urea nitroge n measurement (mass/volume)Ordered By: Jenn Perez on 12-22-2023 Urea nitrogen [Mass/Vol] 17 mg/dL 7-18 [facility] Thin prep Papanicolaou smear with manual screeningOrdered By: [facility] on 12-22-2023 Thin prep Papanicolaou smear with manual screening 3.0 g/dL 3.2-5.0 [facility] Thin prep Papanicolaou smear with manual screening 12 U/L 15-37 [facility] Thin prep Papanicolaou smear with manual screening 6 5-15 [facility] Basophil percentageOrdered B y: Iraida Balderas on 12-13-2023 Bilirubin [Mass/Vol] 0.20 mg/dL 0.20-1.00 [facility] Comment on above: For patients on eltr ombopag therapy, use of Dimension [place] TBIL is not recommended. Chloride [Moles/Vol] 106 mmol/L 98-107 [facility] Glucose [Mass/Vol] 101 mg/dL 74-106 [facility] Comment on above: Fasting Glucose resu lt from 100 to 125 mg/dL suggests IMPAIRED HOMEOSTASIS per A.D.A. criteria. Potassium [Moles/Vol] 3.9 mmol/L 3.5-5.1 [facility] Protein [Mass/Vol] 5.4 g/dL 6.4-8.2 [facility] Sodium [Moles/Vol] 140 mmol/L 136-145 [facility] Laboratory - Chemistry and C hemistry - challengeOrdered By: Iraida Balderas on 12-13-2023 Albumin/Globulin [Mass ratio] 1.0 {ratio} 0.9-2.4 [facility] ALP [Catalytic activity/Vol] 54 U/L 45-117 [facility] ALT [Catalytic activity/Vol] 11 U/L 16-61 [facility] CO2 [Moles/Vol] 30.0 mmol/L 21.0-32.0 [facility] Globulin (S) [Mass/Vol] 2.7 g/dL 2.2-4.2 [facility] Urea nitrogen/Creatinine [Mass ratio] 16.4 mg/mg 10-20 [facility] No Panel InformationOrdered By: Iraida Balderas on 12-13-2023 Estimated GFR (MDRD) Amer 106 mL/min >60 [facility] Comment on above: GFR Calc Estimated GFR (MDRD) Non-Af Amer 88 mL/min >60 [facility] Comment on above: Non- GFR Calc Serum or plasma calcium giovanny urement (mass/volume)Ordered By: Iraida Balderas on 12-13-2023 Calcium [Mass/Vol] 8.5 mg/dL 8.5-10.1 [facility] Serum or plasma creatinine m easurement (mass/volume)Ordered By: Iraida Balderas on 12-13-2023 Creatinine [Mass/Vol] 0.92 mg/dL 0.70-1.30 [facility] Comment on above: The validity of the calculated GFR & GFRAA in patients over 70 years has not been determined. Clinical correlation is essential. Serum or plasma urea nitroge n measurement (mass/volume)Ordered By: Iraida Balderas on 12-13-2023 Urea nitrogen [Mass/Vol] 15 mg/dL -18 [facility] Thin prep Papanicolaou smear with manual screeningOrdered By: Iraida Balderas on 12-13-2023 Thin prep Papanicolaou smear with manual screening 2.7 g/dL 3.2-5.0 [facility] Thin prep Papanicolaou smear with manual screening 10 U/L 15-37 [facility] Thin prep Papanicolaou smear with manual screening 4 5-15 [facility] Anaerobic cultureOrdered By: Te Shah on 12-09-2023 Bacteria identified Anaer cx Nom (Unsp spec) No anaerobic bacteria isolated. [facility] Gram stain for investigation of transfusion reactionOrdered By: Te Shah on 12-09-2023 Microscopic observation Gram stain Nom (Unsp spec) [facility] Routine wound cultureOrdered By: Te Shah on 12-09-2023 Bacteria identified Cx Nom (Wound) No growth aerobically. [facility] Absolute lymphocyte countOrd ered By: Jenn Perez on 11-24-2023 Lymphocytes Auto (Unsp spec) [#/Vol] 0.32 10*3/uL 0.83-4.51 [facility] Albumin Elph [Mass/Vol]Order ed By: Jenn Perez on 11-24-2023 Albumin [Mass/Vol] 3.3 g/dL 2.9-4.4 [facility] Automated lymphocyte count a s percentage of total leukocytesOrdered By: Jenn Perez on 11-24-2023 Lymphocytes/100 WBC Auto (Unsp spec) 7.9 % 19-41 [facility] Basophil percentageOrdered B y: Jenn Perez on 11-24-2023 Basophils/100 WBC (Bld) 1.7 % 0-1 [facility] Bilirubin [Mass/Vol] 0.20 mg/dL 0.20-1.00 [facility] Comment on above: For patients on eltr ombopag therapy, use of Dimension [place] TBIL is not recommended. Chloride [Moles/Vol] 106 mmol/L 98-107 [facility] Eosinophils/100 WBC (Bld) 2.5 % 0-5 [facility] Glucose [Mass/Vol] 105 mg/dL 74-106 [facility] Comment on above: Fasting Glucose resu lt from 100 to 125 mg/dL suggests IMPAIRED HOMEOSTASIS per A.D.A. criteria. Hemoglobin (Bld) [Mass/Vol] 11.9 g/dL 13.0-16.5 [facility] Monocytes/100 WBC (Bld) 9.2 % 0-10 [facility] Neutrophils (Bld) [#/Vol] 3.2 10*3/uL 2.0-7.7 [facility] Neutrophils/100 WBC (Bld) 78.5 % 47-70 [facility] Potassium [Moles/Vol] 4.0 mmol/L 3.5-5.1 [facility] Protein [Mass/Vol] 6.1 g/dL 6.4-8.2 [facility] Sodium [Moles/Vol] 140 mmol/L 136-145 [facility] WBC (Bld) [#/Vol] 4.0 10*3/uL 4.4-11.0 [facility] Determination of erythrocyte mean corpuscular volume (MCV)Ordered By: Jenn Perez on 11-24-2023 MCV (RBC) [Entitic vol] 89.4 fL 80-94 [facility] Erythrocyte distribution wid th ratioOrdered By: Jenn Perez on 11-24-2023 Erythrocyte distribution width (RBC) [Ratio] 15.3 % 11.6-14.6 [facility] Erythrocyte distribution wid th standard deviationOrdered By: Jenn Perez on 11-24-2023 Erythrocyte distribution width (RBC) [Entitic vol] 49.3 fL 35.1-43.9 [facility] Hematocrit Auto (Bld) [Volum e fraction]Ordered By: Jenn Perez on 11-24-2023 Hematocrit (Bld) [Volume fraction] 38.1 % 40-54 [facility] Immature granulocytes/100 WB C Auto (Bld)Ordered By: Jenn Perez on 11-24-2023 Immature granulocytes/100 WBC (Bld) 0.200 % 0.0-0.9 [facility] Comment on above: IG% - Immature Granu locytes (promyelocytes, myelocytes and metamyelocytes) > 1% indicates that a LEFT SHIFT is Present. Interpretation of serum or p lasma protein pattern by immunofixation (narrative resultOrdered By: Jenn Perez on 11-24-2023 Protein Fractions Immunofixation Johnny [Interp] Not Observed g/dL Not Observed [facility] Laboratory - Chemistry and C hemistry - challengeOrdered By: Jenn Perez on 11-24-2023 Albumin/Globulin [Mass ratio] 1.0 {ratio} 0.9-2.4 [facility] ALP [Catalytic activity/Vol] 67 U/L 45-117 [facility] ALT [Catalytic activity/Vol] 12 U/L 16-61 [facility] CO2 [Moles/Vol] 29.0 mmol/L 21.0-32.0 [facility] Globulin (S) [Mass/Vol] 3.1 g/dL 2.2-4.2 [facility] Urea nitrogen/Creatinine [Mass ratio] 21.5 mg/mg 10-20 [facility] Laboratory - Hematology and Cell countsOrdered By: Jenn Perez on 11-24-2023 MCH (RBC) [Entitic mass] 27.9 pg 27.0-32.0 [facility] MCHC (RBC) [Mass/Vol] 31.2 g/dL 32-36 [facility] Nucleated RBC/100 WBC (Bld) [Ratio] 0 % 0-5 [facility] Platelet mean volume (Bld) [Entitic vol] 10.2 fL 6.2-12.0 [facility] Platelets (Bld) [#/Vol] 225 10*3/uL 150-450 [facility] No Panel InformationOrdered By: Jenn Perez on 11-24-2023 Addendum Document Comment . [facility] Comment on above: Protein electrophore sis scan will follow via computer,mail, or forging die sinker delivery. Estimated Creatinine Clearance Calc 91.46 ml/min [facility] Estimated GFR (MDRD) Amer 126 mL/min >60 [facility] Comment on above: GFR Calc Estimated GFR (MDRD) Non-Af Amer 104 mL/min >60 [facility] Comment on above: Non- GFR Calc Free Lambda Light Chains, Quant 10.4 mg/L 5.7-26.3 [facility] Immunoglobulin M 11 mg/dL 20-172 [facility] Comment on above: Result confirmed on concentration. RBC Auto (Bld) [#/Vol]Ordere d By: Jenn Perez on 11-24-2023 RBC (Bld) [#/Vol] 4.26 10*6/uL 4.6-6.2 [facility] Serum [id number] measu rement by electrophoresisOrdered By: Jenn Perez on 11-24-2023 Alpha 1 globulin Elph [Mass/Vol] 0.2 g/dL 0.0-0.4 [facility] Alpha 1 globulin Elph [Mass/Vol] 0.9 g/dL 0.4-1.0 [facility] Serum globulin measurement ( mass/volume)Ordered By: Jenn Perez on 11-24-2023 Globulin (S) [Mass/Vol] 2.3 g/dL 2.2-3.9 [facility] Serum immunoglobulin kappa l ight chains/immunoglobulin lambda light chains mass ratioOrdered By: Jenn Perez on 11-24-2023 Immunoglobulin light chains.kappa/Immunoglobu dav light chains.lambda (S) [Mass ratio] 1.34 0.26-1.65 [facility] Comment on above: Performed at: [place] [id number] Director: Micky Arreola PhD, Phone: [phone] Serum or plasma IgA measurem ent (mass/volume)Ordered By: Jenn Perez on 11-24-2023 IgA [Mass/Vol] 55 mg/dL 61-437 [facility] Serum or plasma IgG measurem ent (mass/volume)Ordered By: Jenn Perez on 11-24-2023 IgG [Mass/Vol] 572 mg/dL [id number] [facility] Serum or plasma beta globuli n measurement by electrophoresis (mass/volume)Ordered By: Jenn Perez on 11-24-2023 Beta globulin Elph [Mass/Vol] 0.8 g/dL 0.7-1.3 [facility] Serum or plasma calcium giovanny urement (mass/volume)Ordered By: Jenn Perez on 11-24-2023 Calcium [Mass/Vol] 9.2 mg/dL 8.5-10.1 [facility] Serum or plasma creatinine m easurement (mass/volume)Ordered By: Jenn Perez on 11-24-2023 Creatinine [Mass/Vol] 0.79 mg/dL 0.70-1.30 [facility] Comment on above: The validity of the calculated GFR & GFRAA in patients over 70 years has not been determined. Clinical correlation is essential. Serum or plasma gamma globul in measurement by electrophoresis (mass/volume)Ordered By: eJnn Perez on 11-24-2023 Gamma globulin Elph [Mass/Vol] 0.4 g/dL 0.4-1.8 [facility] Serum or plasma immunoelectr ophoresis interpretation (nominal result)Ordered By: Jenn Perez on 11-24-2023 Interpretation IEP [Interp] Comment . [facility] Comment on above: No monoclonality det ected. Serum or plasma immunoglobul in kappa light chains measurement (mass/volume)Ordered By: Jenn Perez on 11-24-2023 Immunoglobulin light chains.kappa [Mass/Vol] 13.9 mg/L 3.3-19.4 [facility] Serum or plasma urea nitroge n measurement (mass/volume)Ordered By: Jenn Perez on 11-24-2023 Urea nitrogen [Mass/Vol] 17 mg/dL 7-18 [facility] Thin prep Papanicolaou smear with manual screeningOrdered By: [facility]23 Thin prep Papanicolaou smear with manual screening 3.0 g/dL 3.2-5.0 [facility] Thin prep Papanicolaou smear with manual screening 10 U/L 15-37 [facility] Thin prep Papanicolaou smear with manual screening 5 5-15 [facility] Thin prep Papanicolaou smear with manual screening 1.5 0.7-1.7 [facility] Total protein bloodOrdered B y: Jenn Perez on 11-24-2023 Protein [Mass/Vol] 5.6 g/dL 6.0-8.5 [facility] Absolute lymphocyte countOrd ered By: Jenn Perez on 10-27-2023 Lymphocytes Auto (Unsp spec) [#/Vol] 0.48 10*3/uL 0.83-4.51 [facility] Albumin Elph [Mass/Vol]Order ed By: Jenn Perez on 10-27-2023 Albumin [Mass/Vol] 3.4 g/dL 2.9-4.4 [facility] Automated lymphocyte count a s percentage of total leukocytesOrdered By: Jenn Perez on 10-27-2023 Lymphocytes/100 WBC Auto (Unsp spec) 11.3 % 19-41 [facility] Basophil percentageOrdered B y: Jenn Perez on 10-27-2023 Basophils/100 WBC (Bld) 0.7 % 0-1 [facility] Bilirubin [Mass/Vol] 0.30 mg/dL 0.20-1.00 [facility] Comment on above: For patients on eltr ombopag therapy, use of Dimension [place] TBIL is not recommended. Chloride [Moles/Vol] 107 mmol/L 98-107 [facility] Eosinophils/100 WBC (Bld) 4.0 % 0-5 [facility] Glucose [Mass/Vol] 111 mg/dL 74-106 [facility] Comment on above: Fasting Glucose resu lt from 100 to 125 mg/dL suggests IMPAIRED HOMEOSTASIS per A.D.A. criteria. Hemoglobin (Bld) [Mass/Vol] 12.5 g/dL 13.0-16.5 [facility] Monocytes/100 WBC (Bld) 8.7 % 0-10 [facility] Neutrophils (Bld) [#/Vol] 3.2 10*3/uL 2.0-7.7 [facility] Neutrophils/100 WBC (Bld) 74.8 % 47-70 [facility] Potassium [Moles/Vol] 4.2 mmol/L 3.5-5.1 [facility] Protein [Mass/Vol] 6.4 g/dL 6.4-8.2 [facility] Sodium [Moles/Vol] 140 mmol/L 136-145 [facility] WBC (Bld) [#/Vol] 4.2 10*3/uL 4.4-11.0 [facility] Determination of erythrocyte mean corpuscular volume (MCV)Ordered By: Jenn Perez on 10-27-2023 MCV (RBC) [Entitic vol] 90.9 fL 80-94 [facility] Erythrocyte distribution wid th ratioOrdered By: Jenn Perez on 10-27-2023 Erythrocyte distribution width (RBC) [Ratio] 15.5 % 11.6-14.6 [facility] Erythrocyte distribution wid th standard deviationOrdered By: Jenn Perez on 10-27-2023 Erythrocyte distribution width (RBC) [Entitic vol] 51.7 fL 35.1-43.9 [facility] Hematocrit Auto (Bld) [Volum e fraction]Ordered By: Jenn Perez on 10-27-2023 Hematocrit (Bld) [Volume fraction] 40.9 % 40-54 [facility] Immature granulocytes/100 WB C Auto (Bld)Or[facility]: [facility] 10-27-2023 Immature granulocytes/100 WBC (Bld) 0.500 % 0.0-0.9 [facility] Comment on above: IG% - Immature Granu locytes (promyelocytes, myelocytes and metamyelocytes) > 1% indicates that a LEFT SHIFT is Present. Interpretation of serum or p lasma protein pattern by immunofixation (narrative resultOrdered By: Jenn Perez on 10-27-2023 Protein Fractions Immunofixation Johnny [Interp] 0.1 g/dL Not Observed [facility] Laboratory - Chemistry and C hemistry - challengeOrdered By: [facility] Chris on 10-27-2023 Albumin/Globulin [Mass ratio] 0.9 {ratio} 0.9-2.4 [facility] ALP [Catalytic activity/Vol] 75 U/L 45-117 [facility] ALT [Catalytic activity/Vol] 18 U/L 16-61 [facility] CO2 [Moles/Vol] 30.0 mmol/L 21.0-32.0 [facility] Globulin (S) [Mass/Vol] 3.3 g/dL 2.2-4.2 [facility] IgM (U) [Mass/Vol] 11 mg/dL 20-172 [facility] Comment on above: Result confirmed on concentration. Urea nitrogen/Creatinine [Mass ratio] 22.1 mg/mg 10-20 [facility] Laboratory - Hematology and Cell countsOrdered By: [facility] on 10-27-2023 MCH (RBC) [Entitic mass] 27.8 pg 27.0-32.0 [facility] MCHC (RBC) [Mass/Vol] 30.6 g/dL 32-36 [facility] Nucleated RBC/100 WBC (Bld) [Ratio] 0 % 0-5 [facility] Platelets (Bld) [#/Vol] 172 10*3/uL 150-450 [facility] No Panel InformationOrdered By: Jenn Perez on 10-27-2023 Addendum Document Comment . [facility] Comment on above: Protein electrophore sis scan will follow via computer,mail, or forging die sinker delivery. Estimated Creatinine Clearance Calc 91.46 ml/min [facility] Estimated GFR (MDRD) Amer 130 mL/min >60 [facility] Comment on above: GFR Calc Estimated GFR (MDRD) Non-Af Amer 108 mL/min >60 [facility] Comment on above: Non- GFR Calc Free Lambda Light Chains, Quant 4.0 mg/L 5.7-26.3 [facility] Platelet mean volume Cade-Ec ker (Bld) [Entitic vol]Ordered By: Jenn Perez on 10-27-2023 Platelet mean volume (Bld) [Entitic vol] 9.8 fL 6.2-12.0 [facility] RBC Auto (Bld) [#/Vol]Ordere d By: Jenn Perez on 10-27-2023 RBC (Bld) [#/Vol] 4.50 10*6/uL 4.6-6.2 [facility] Serum [id number] measu rement by electrophoresisOrdered By: Jenn Perez on 10-27-2023 Alpha 1 globulin Elph [Mass/Vol] 0.2 g/dL 0.0-0.4 [facility] Alpha 1 globulin Elph [Mass/Vol] 0.9 g/dL 0.4-1.0 [facility] Serum immunoglobulin kappa l ight chains/immunoglobulin lambda light chains mass ratioOrdered By: Jenn Perez on 10-27-2023 Immunoglobulin light chains.kappa/Immunoglobu dav light chains.lambda (S) [Mass ratio] 2.00 0.26-1.65 [facility] Comment on above: Performed at: [address] [id number] Director: Micky Arreola PhD, Phone: [phone] Serum or plasma IgA measurem ent (mass/volume)Ordered By: Jenn Perez on 10-27-2023 IgA [Mass/Vol] 45 mg/dL 61-437 [facility] Comment on above: Result confirmed on concentration. Serum or plasma IgG measurem ent (mass/volume)Ordered By: Jenn Perez on 10-27-2023 IgG [Mass/Vol] 543 mg/dL 603-1613 [facility] Serum or plasma beta globuli n measurement by electrophoresis (mass/volume)Ordered By: Jenn Perez on 10-27-2023 Beta globulin Elph [Mass/Vol] 0.8 g/dL 0.7-1.3 [facility] Serum or plasma calcium giovanny urement (mass/volume)Ordered By: Jenn Perez on 10-27-2023 Calcium [Mass/Vol] 9.3 mg/dL 8.5-10.1 [facility] Serum or plasma creatinine m easurement (mass/volume)Ordered By: Jenn Perez on 10-27-2023 Creatinine [Mass/Vol] 0.77 mg/dL 0.70-1.30 [facility] Comment on above: The validity of the calculated GFR & GFRAA in patients over 70 years has not been determined. Clinical correlation is essential. Serum or plasma gamma globul in measurement by electrophoresis (mass/volume)Ordered By: Jenn Perez on 10-27-2023 Gamma globulin Elph [Mass/Vol] 0.4 g/dL 0.4-1.8 [facility] Serum or plasma immunoelectr ophoresis interpretation (nominal result)Ordered By: Jenn Perez on 10-27-2023 Interpretation IEP [Interp] Comment . [facility] Comment on above: Immunofixation shows IgG monoclonal protein with kappalight chain specificity. PLEASE NOTE: Samples from patients receiving DARZALEX(R)(daratumumab) or SARCLISA(R)(isatuximab-psychiatric) treatmentcan appear as an "IgG kappa" and mask a complete response(CR). If this patient is receiving these therapies, thisIFE assay interference can be removed by ordering testnumber [id number]-"Immunofixation, Daratumumab-Specific,Serum" or [id number]-"Immunofixation, Isatuximab-Specific,Serum" and submitting a new sample for testing or bycalling the lab to add this test to the current sample. Serum or plasma immunoglobul in kappa light chains measurement (mass/volume)Ordered By: Jenn Perez on 10-27-2023 Immunoglobulin light chains.kappa [Mass/Vol] 8.0 mg/L 3.3-19.4 [facility] Serum or plasma urea nitroge n measurement (mass/volume)Ordered By: Jenn Perez on 10-27-2023 Urea nitrogen [Mass/Vol] 17 mg/dL 7-18 [facility] Thin prep Papanicolaou smear with manual screeningOrdered By: [facility] on 10-27-2023 Thin prep Papanicolaou smear with manual screening 3.1 g/dL 3.2-5.0 [facility] Thin prep Papanicolaou smear with manual screening 11 U/L 15-37 [facility] Thin prep Papanicolaou smear with manual screening 3 5-15 [facility] Thin prep Papanicolaou smear with manual screening 1.5 0.7-1.7 [facility] Total protein bloodOrdered B y: Jenn Perez on 10-27-2023 Protein [Mass/Vol] 5.7 g/dL 6.0-8.5 [facility] Basophil percentageOrdered B y: Iraida Balderas on 10-07-2023 Bilirubin [Mass/Vol] 0.40 mg/dL 0.20-1.00 [facility] Comment on above: For patients on eltr ombopag therapy, use of Dimension [place] TBIL is not recommended. Chloride [Moles/Vol] 105 mmol/L 98-107 [facility] Cholesterol [Mass/Vol] 169 mg/dL <200 [facility] Comment on above: <200 mg/dL Desirable 200-240 mg/dL Borderline >240 mg/dL High Risk Glucose [Mass/Vol] 111 mg/dL 74-106 [facility] Comment on above: Fasting Glucose resu lt from 100 to 125 mg/dL suggests IMPAIRED HOMEOSTASIS per A.D.A. criteria. Potassium [Moles/Vol] 4.1 mmol/L 3.5-5.1 [facility] Protein [Mass/Vol] 6.2 g/dL 6.4-8.2 [facility] Sodium [Moles/Vol] 140 mmol/L 136-145 [facility] Triglyceride [Mass/Vol] 72 mg/dL <199 [facility] Comment on above: The drugs N-Acetylcy steine and Metamizole may falsely depress this assay.Serum Triglycerides Reference Interval Normal <150 mg/dL Borderline high 150 - 199 mg/dL High 200 - 499 mg/dL Very High > or = 500 mg/dL WBC (Bld) [#/Vol] 3.2 10*3/uL 4.4-11.0 [facility] Blood erythrocytes count (nu mber/volume)Ordered By: Iraida Balderas on 10-07-2023 RBC (Bld) [#/Vol] 4.25 10*6/uL 4.6-6.2 [facility] Blood hemoglobin measurement (mass/volume)Ordered By: Iraida Balderas on 10-07-2023 Hemoglobin (Bld) [Mass/Vol] 11.9 g/dL 13.0-16.5 [facility] Blood platelet mean volumeOr dered By: Iraida Balderas on 10-07-2023 Platelet mean volume (Bld) [Entitic vol] 10.8 fL 6.2-12.0 [facility] Determination of erythrocyte mean corpuscular volume (MCV)Ordered By: Iraida Balderas on 10-07-2023 MCV (RBC) [Entitic vol] 94.1 fL 80-94 [facility] Hematocrit Auto (Bld) [Volum e fraction]Ordered By: Iraida Balderas on 10-07-2023 Hematocrit (Bld) [Volume fraction] 40.0 % 40-54 [facility] Laboratory - Chemistry and C hemistry - challengeOrdered By: Iraida Balderas on 10-07-2023 ALP [Catalytic activity/Vol] 61 U/L 45-117 [facility] ALT [Catalytic activity/Vol] 19 U/L 16-61 [facility] CO2 [Moles/Vol] 31.0 mmol/L 21.0-32.0 [facility] Free T4 [Mass/Vol] 1.13 ng/dL 0.76-1.46 [facility] Globulin (S) [Mass/Vol] 3.4 g/dL 2.2-4.2 [facility] Urea nitrogen/Creatinine [Mass ratio] 12.9 mg/mg 10-20 [facility] Laboratory - Hematology and Cell countsOrdered By: Iraida Balderas on 10-07-2023 Erythrocyte distribution width (RBC) [Entitic vol] 57.8 fL 35.1-43.9 [facility] Erythrocyte distribution width (RBC) [Ratio] 16.7 % 11.6-14.6 [facility] MCH (RBC) [Entitic mass] 28.0 pg 27.0-32.0 [facility] MCHC Auto (RBC) [Mass/Vol]Or dered By: Iraida Balderas on 10-07-2023 MCHC (RBC) [Mass/Vol] 29.8 g/dL 32-36 [facility] No Panel InformationOrdered By: Iraida Balderas on 10-07-2023 Estimated GFR (MDRD) Amer 116 mL/min >60 [facility] Comment on above: GFR Calc Estimated GFR (MDRD) Non-Af Amer 96 mL/min >60 [facility] Comment on above: Non- GFR Calc Thyroid Stimulating Hormone (TSH) 3.26 uIU/mL 0.358-3.74 [facility] Vitamin D 25-Hydroxy 68.9 ng/mL [facility] Comment on above: Vitamin D 25(OH) Sta tus Range Deficiency <20 ng/mL (50nmol/L) Insufficiency 20 - 30 ng/mL (50 - 75 nmol/L) Sufficiency 30 - 100 ng/mL (75 - 250 nmol/L) Toxicity >100 ng/mL (>250 nmol/L) Platelets bldOrdered By: Iraida Balderas on 10-07-2023 Platelets (Bld) [#/Vol] 177 10*3/uL 150-450 [facility] Serum or plasma albumin giovanny urement (mass/volume)Ordered By: Iraida Balderas on 10-07-2023 Albumin [Mass/Vol] 2.8 g/dL 3.2-5.0 [facility] Serum or plasma albumin/glob ulin mass ratioOrdered By: Iraida Balderas on 10-07-2023 Albumin/Globulin [Mass ratio] 0.8 {ratio} 0.9-2.4 [facility] Serum or plasma calcium giovanny urement (mass/volume)Ordered By: Iraida Balderas on 10-07-2023 Calcium [Mass/Vol] 9.2 mg/dL 8.5-10.1 [facility] Serum or plasma cholesterol in HDL measurement (mass/volume)Ordered By: Iraida Balderas on 10-07-2023 Cholesterol in HDL [Mass/Vol] 71 mg/dL >40 [facility] Comment on above: The drugs N-Acetylcy steine and Metamizole may falsely depress this assay. Reference Range HDL <40 mg/dL Low HDL Cholesterol HDL >or= 60 mg/dL High HDL Cholesterol Serum or plasma cholesterol in VLDL measurement (mass/volume)Ordered By: Iraida Balderas on 10-07-2023 Cholesterol in VLDL [Mass/Vol] 14 mg/dL 5-40 [facility] Serum or plasma creatinine m easurement (mass/volume)Ordered By: Iraida Balderas on 10-07-2023 Creatinine [Mass/Vol] 0.85 mg/dL 0.70-1.30 [facility] Comment on above: The validity of the calculated GFR & GFRAA in patients over 70 years has not been determined. Clinical correlation is essential. Serum or plasma low density lipoprotein (LDL) cholesterol measurement (mass/volume)Ordered By: Iraida Balderas on 10-07-2023 Cholesterol in LDL [Mass/Vol] 84 mg/dL 0-130 [facility] Serum or plasma urea nitroge n measurement (mass/volume)Ordered By: Iraida Balderas on 10-07-2023 Urea nitrogen [Mass/Vol] 11 mg/dL 7-18 [facility] Thin prep Papanicolaou smear with manual screeningOrdered By: Iraida Balderas on 10-07-2023 Thin prep Papanicolaou smear with manual screening 8 U/L 15-37 [facility] Thin prep Papanicolaou smear with manual screening 4 5-15 [facility] Absolute lymphocyte countOrd ered By: Jenn Perez on 09-29-2023 Lymphocytes Auto (Unsp spec) [#/Vol] 0.34 10*3/uL 0.83-4.51 [facility] Albumin Elph [Mass/Vol]Order ed By: Jenn Perez on 09-29-2023 Albumin [Mass/Vol] 3.0 g/dL 2.9-4.4 [facility] Basophil percentageOrdered B y: Jenn Perez on 09-29-2023 Basophils/100 WBC (Bld) 1.7 % 0-1 [facility] Bilirubin [Mass/Vol] 0.40 mg/dL 0.20-1.00 [facility] Comment on above: For patients on eltr ombopag therapy, use of Dimension [place] TBIL is not recommended. Chloride [Moles/Vol] 107 mmol/L 98-107 [facility] Eosinophils/100 WBC (Bld) 8.5 % 0-5 [facility] Glucose [Mass/Vol] 108 mg/dL 74-106 [facility] Comment on above: Fasting Glucose resu lt from 100 to 125 mg/dL suggests IMPAIRED HOMEOSTASIS per A.D.A. criteria. Neutrophils (Bld) [#/Vol] 2.5 10*3/uL 2.0-7.7 [facility] Neutrophils/100 WBC (Bld) 69.7 % 47-70 [facility] Potassium [Moles/Vol] 4.0 mmol/L 3.5-5.1 [facility] Protein [Mass/Vol] 5.9 g/dL 6.4-8.2 [facility] Sodium [Moles/Vol] 142 mmol/L 136-145 [facility] WBC (Bld) [#/Vol] 3.5 10*3/uL 4.4-11.0 [facility] Blood erythrocytes count (nu mber/volume)Ordered By: Jenn Perez on 09-29-2023 RBC (Bld) [#/Vol] 4.00 10*6/uL 4.6-6.2 [facility] Blood hemoglobin measurement (mass/volume)Ordered By: Jenn Perez on 09-29-2023 Hemoglobin (Bld) [Mass/Vol] 11.2 g/dL 13.0-16.5 [facility] Blood lymphocytes/100 leukoc ytesOrdered By: Jenn Perez on 09-29-2023 Lymphocytes/100 WBC (Bld) 9.6 % 19-41 [facility] Blood manual differential co mment interpretation (narrative result)Ordered By: Jenn Perez on 09-29-2023 Manual differential comment Johnny (Bld) [Interp] SCANNED [facility] Blood monocytes/100 leukocyt esOrdered By: Jenn Perez on 09-29-2023 Monocytes/100 WBC (Bld) 10.2 % 0-10 [facility] Blood platelet mean volumeOr dered By: Jenn Perez on 09-29-2023 Platelet mean volume (Bld) [Entitic vol] 11.6 fL 6.2-12.0 [facility] Determination of erythrocyte mean corpuscular volume (MCV)Ordered By: Jenn Perez on 09-29-2023 MCV (RBC) [Entitic vol] 92.5 fL 80-94 [facility] Hematocrit Auto (Bld) [Volum e fraction]Ordered By: Jenn Perez on 09-29-2023 Hematocrit (Bld) [Volume fraction] 37.0 % 40-54 [facility] Interpretation of serum or p lasma protein pattern by immunofixation (narrative resultOrdered By: Jenn Perez on 09-29-2023 Protein Fractions Immunofixation Johnny [Interp] 0.1 g/dL Not Observed [facility] Laboratory - Chemistry and C hemistry - challengeOrdered By: Jenn Perez on 09-29-2023 ALP [Catalytic activity/Vol] 68 U/L 45-117 [facility] ALT [Catalytic activity/Vol] 16 U/L 16-61 [facility] CO2 [Moles/Vol] 29.0 mmol/L 21.0-32.0 [facility] Urea nitrogen/Creatinine [Mass ratio] 20.5 mg/mg 10-20 [facility] Laboratory - Hematology and Cell countsOrdered By: Jenn Perez on 09-29-2023 Erythrocyte distribution width (RBC) [Entitic vol] 56.1 fL 35.1-43.9 [facility] Erythrocyte distribution width (RBC) [Ratio] 16.7 % 11.6-14.6 [facility] Immature granulocytes/100 WBC (Bld) 0.300 % 0.0-0.9 [facility] Comment on above: IG% - Immature Granu locytes (promyelocytes, myelocytes and metamyelocytes) > 1% indicates that a LEFT SHIFT is Present. MCH (RBC) [Entitic mass] 28.0 pg 27.0-32.0 [facility] Nucleated RBC/100 WBC (Bld) [Ratio] 0 % 0-5 [facility] MCHC Auto (RBC) [Mass/Vol]Or dered By: Jenn Perez on 09-29-2023 MCHC (RBC) [Mass/Vol] 30.3 g/dL 32-36 [facility] Manual differential comment Johnny (Bld) [Interp]Ordered By: Jenn Perez on 09-29-2023 Differential Comment SCANNED [facility] No Panel InformationOrdered By: Jenn Perez on 09-29-2023 Addendum Document Comment . [facility] Comment on above: Protein electrophore sis scan will follow via computer,mail, or forging die sinker delivery. Estimated Creatinine Clearance Calc 63.21 ml/min [facility] Estimated GFR (MDRD) Amer 128 mL/min >60 [facility] Comment on above: GFR Calc Estimated GFR (MDRD) Non-Af Amer 106 mL/min >60 [facility] Comment on above: Non- GFR Calc Free Lambda Light Chains, Quant 11.1 mg/L 5.7-26.3 [facility] Pathologist review Johnny (Unsp spec) [Interp]Ordered By: Jenn Perez on 09-29-2023 Differential Pathologist's Review Reviewed [facility] Comment on above: Previous reported re sult: Lisseth contreras Edited by: DARRIN on 10/01/23:1041LeukopeniaNormocytic anemia.Clinical correlation necessary.Jordon De Jesus M.D. 10/01/23 AMENDED REPORT 10/01/23 1041 PATH REV previously reported as: Lisseth contreras Platelets bldOrdered By: Lam Perez on 09-29-2023 Platelets (Bld) [#/Vol] 159 10*3/uL 150-450 [facility] Review by pathologistOrdered By: Jenn Perez on 09-29-2023 Pathologist review Johnny (Unsp spec) [Interp] Reviewed [facility] Comment on above: Previous reported re sult: May foll Edited by: DARRIN on 10/01/23:1041LeukopeniaNormocytic anemia.Clinical correlation necessary.Jordon De Jesus M.D. 10/01/23 AMENDED REPORT 10/01/23 1041 PATH REV previously reported as: Lisseth contreras Serum [id number] measu rement by electrophoresisOrdered By: Jenn Perez on 09-29-2023 Alpha 1 globulin Elph [Mass/Vol] 0.3 g/dL 0.0-0.4 [facility] Alpha 1 globulin Elph [Mass/Vol] 0.9 g/dL 0.4-1.0 [facility] Serum globulin measurement ( mass/volume)Ordered By: Jenn Perez on 09-29-2023 Globulin (S) [Mass/Vol] 2.4 g/dL 2.2-3.9 [facility] Serum immunoglobulin kappa l ight chains/immunoglobulin lambda light chains mass ratioOrdered By: Jenn Perez on 09-29-2023 Immunoglobulin light chains.kappa/Immunoglobu dav light chains.lambda (S) [Mass ratio] 1.40 0.26-1.65 [facility] Comment on above: Performed at: [place] [id number] Director: Micky Arreola PhD, Phone: [phone] Serum or plasma IgA measurem ent (mass/volume)Ordered By: Jenn Perez on 09-29-2023 IgA [Mass/Vol] 70 mg/dL 61-437 [facility] Serum or plasma IgG measurem ent (mass/volume)Ordered By: Jenn Perez on 09-29-2023 IgG [Mass/Vol] 599 mg/dL [phone] [facility] Serum or plasma IgM measurem ent (mass/volume)Ordered By: Jenn Perez on 09-29-2023 IgM [Mass/Vol] 12 mg/dL 20-172 [facility] Comment on above: Result confirmed on concentration. Serum or plasma albumin giovanny urement (mass/volume)Ordered By: Jenn Perez on 09-29-2023 Albumin [Mass/Vol] 2.9 g/dL 3.2-5.0 [facility] Serum or plasma albumin/glob ulin mass ratioOrdered By: Jenn Perez on 09-29-2023 Albumin/Globulin [Mass ratio] 1.0 {ratio} 0.9-2.4 [facility] Serum or plasma beta globuli n measurement by electrophoresis (mass/volume)Ordered By: Jenn Perez on 09-29-2023 Beta globulin Elph [Mass/Vol] 0.8 g/dL 0.7-1.3 [facility] Serum or plasma calcium giovanny urement (mass/volume)Ordered By: Jenn Perez on 09-29-2023 Calcium [Mass/Vol] 8.5 mg/dL 8.5-10.1 [facility] Serum or plasma creatinine m easurement (mass/volume)Ordered By: Jenn Perez on 09-29-2023 Creatinine [Mass/Vol] 0.78 mg/dL 0.70-1.30 [facility] Comment on above: The validity of the calculated GFR & GFRAA in patients over 70 years has not been determined. Clinical correlation is essential. Serum or plasma gamma globul in measurement by electrophoresis (mass/volume)Ordered By: Jenn Perez on 09-29-2023 Gamma globulin Elph [Mass/Vol] 0.6 g/dL 0.4-1.8 [facility] Serum or plasma immunoelectr ophoresis interpretation (nominal result)Ordered By: Jenn Perez on 09-29-2023 Interpretation IEP [Interp] Comment . [facility] Comment on above: Immunofixation shows IgG monoclonal protein with kappalight chain specificity. PLEASE NOTE: Samples from patients receiving DARZALEX(R)(daratumumab) or SARCLISA(R)(isatuximab-psychiatric) treatmentcan appear as an "IgG kappa" and mask a complete response(CR). If this patient is receiving these therapies, thisIFE assay interference can be removed by ordering testnumber 503308-"Immunofixation, Daratumumab-Specific,Serum" or [id number]-"Immunofixation, Isatuximab-Specific,Serum" and submitting a new sample for testing or bycalling the lab to add this test to the current sample. Serum or plasma immunoglobul in kappa light chains measurement (mass/volume)Ordered By: Jenn Perez on 09-29-2023 Immunoglobulin light chains.kappa [Mass/Vol] 15.5 mg/L 3.3-19.4 [facility] Serum or plasma urea nitroge n measurement (mass/volume)Ordered By: Jenn Perez on 09-29-2023 Urea nitrogen [Mass/Vol] 16 mg/dL 7-18 [facility] Thin prep Papanicolaou smear with manual screeningOrdered By: Jenn Perez on 09-29-2023 Thin prep Papanicolaou smear with manual screening 13 U/L 15-37 [facility] Thin prep Papanicolaou smear with manual screening 6 5-15 [facility] Thin prep Papanicolaou smear with manual screening 1.3 0.7-1.7 [facility] Total protein bloodOrdered B y: Jenn Perez on 09-29-2023 Protein [Mass/Vol] 5.4 g/dL 6.0-8.5 [facility] CBC AND ELECTRONIC DIFFon Basophils (Bld) [#/Vol] 0.06 10*3/uL 0.00 - 0.09 K/uL [facility] Basophils/100 WBC (Bld) 1.1 % [facility] Differential cell count method Nom (Bld) Electronic Differential [facility] Eosinophils (Bld) [#/Vol] 0.19 10*3/uL 0.00 - 0.48 K/uL [facility] Eosinophils/100 WBC (Bld) 3.5 % [facility] Erythrocyte distribution width (RBC) [Ratio] 16.8 % High 10.9 - 14.3 % [facility] Hematocrit (Bld) [Volume fraction] 37.7 % Low 39.6 - 48.8 % [facility] Hemoglobin (Bld) [Mass/Vol] 11.4 g/dL Low 13.4 - 16.8 g/dL [facility] Immature granulocytes (Bld) [#/Vol] K/uL NINF - 0.07 K/uL [facility] Immature granulocytes/100 WBC (Bld) 0.6 % [facility] Interpretation and review of laboratory results Abnormal [facility] Lymphocytes (Bld) [#/Vol] 0.44 10*3/uL Low 0.83 - 3.57 K/uL [facility] Lymphocytes/100 WBC (Bld) 8.1 % [facility] MCH (RBC) [Entitic mass] 27.4 pg 26. 1 - 33.3 pg [facility] MCHC (RBC) [Mass/Vol] 30.2 g/dL Low 31.9 - 36.5 g/dL [facility] MCV (RBC) [Entitic vol] 90.6 fL 79.0 - 94.5 fL [facility] Monocytes (Bld) [#/Vol] 0.56 10*3/uL 0.24 - 0.93 K/uL [facility] Monocytes/100 WBC (Bld) 10.4 % [facility] Neutrophils (Bld) [#/Vol] 4.12 10*3/uL 1.57 - 6.19 K/uL [facility] Nucleated RBC/100 WBC (Bld) [Ratio] 0.0 % [facility] Platelet mean volume (Bld) [Entitic vol] 10.8 fL 8.7 - 12.3 fL [facility] Platelets (Bld) [#/Vol] 236 10*3/uL 146 - 337 K/uL [facility] RBC (Bld) [#/Vol] 4.16 10*6/uL Low [facility] Segmented neutrophils/100 WBC (Bld) 76.3 % [facility] WBC (Bld) [#/Vol] 5.40 10*3/uL 3.73 - 10.10 K/uL [facility] COMPREHENSIVE METABOLIC PANE Jim 09-08-2023 Albumin [Mass/Vol] 3.6 g/dL 3.5 - 5.0 g/dL [facility] ALP [Catalytic activity/Vol] 49 U/L 32 - 126 U/L [facility] ALT [Catalytic activity/Vol] 15 U/L 10 - 52 U/L [facility] Anion gap [Moles/Vol] 8 mmol/L 7 - 17 mmol/L [facility] AST [Catalytic activity/Vol] 11 U/L 10 - 39 U/L [facility] Bilirubin [Mass/Vol] 0.4 mg/dL NINF - 1.5 mg/dL [facility] Calcium [Mass/Vol] 9.0 mg/dL 8.6 - 10. 5 mg/dL [facility] Chloride [Moles/Vol] 103 mmol/L 98 - 10 8 mmol/L [facility] CO2 [Moles/Vol] 32 mmol/L High 21 - 31 mmol/L [facility] Creatinine [Mass/Vol] 0.74 mg/dL 0.70 - 1.30 mg/dL [facility] eGFR, CKD-EPI, Male - PINF [facility] Comment on above: Reported eGFR is bas ed on the CKD-EPI 2020 equation using creatinine, age, and sex. Glucose [Mass/Vol] 75 mg/dL 70 - 99 mg/dL [facility] Interpretation and review of laboratory results Abnormal [facility] Osmolality Calc [Osmolality] 290 [facility] Potassium [Moles/Vol] 3.8 mmol/L 3.5 - 5.0 mmol/L [facility] Protein [Mass/Vol] 6.4 g/dL 6.4 - 8.3 g/dL [facility] Sodium [Moles/Vol] 139 mmol/L 135 - 145 mmol/L [facility] Urea nitrogen [Mass/Vol] 15 mg/dL 7 - 25 mg/dL [facility] Urea nitrogen/Creatinine [Mass ratio] 20 mg/mg [facility] IMMUNOGLOBULINS IGG IGA IGMO rdered By: Dutch Ratliff on 09-08-2023 IgA [Mass/Vol] 56 mg/dL Low 90 - 410 mg/dL [facility] IgG [Mass/Vol] 549 mg/dL Low 600 - 1560 mg/dL [facility] IgM [Mass/Vol] mg/dL Low 30 - 360 mg/dL [facility] Interpretation and review of laboratory results Abnormal [facility] SPE SERUM TOTAL PROTEINon Interpretation and review of laboratory results Abnormal [facility] Protein [Mass/Vol] 5.7 g/dL Low 6.4 - 8.3 g/[facility] Absolute lymphocyte countOrd ered By: Jenn Perez on 09-01-2023 Lymphocytes Auto (Unsp spec) [#/Vol] 0.31 10*3/uL 0.83-4.51 [facility] Albumin Elph [Mass/Vol]Order ed By: Jenn Perez on 09-01-2023 Albumin [Mass/Vol] 3.0 g/dL 2.9-4.4 [facility] Basophil percentageOrdered B y: Jenn Perez on 09-01-2023 Basophil percentage 3.2 mg/dL 2.5-4.9 [facility] Basophils/100 WBC (Bld) 0.6 % 0-1 [facility] Bilirubin [Mass/Vol] 0.30 mg/dL 0.20-1.00 [facility] Comment on above: For patients on eltr ombopag therapy, use of Dimension [place] TBIL is not recommended. Chloride [Moles/Vol] 104 mmol/L 98-107 [facility] Eosinophils/100 WBC (Bld) 1.5 % 0-5 [facility] Glucose [Mass/Vol] 109 mg/dL 74-106 [facility] Comment on above: Fasting Glucose resu lt from 100 to 125 mg/dL suggests IMPAIRED HOMEOSTASIS per A.D.A. criteria. Neutrophils (Bld) [#/Vol] 3.9 10*3/uL 2.0-7.7 [facility] Neutrophils/100 WBC (Bld) 82.2 % 47-70 [facility] Potassium [Moles/Vol] 4.2 mmol/L 3.5-5.1 [facility] Protein [Mass/Vol] 6.2 g/dL 6.4-8.2 [facility] Sodium [Moles/Vol] 141 mmol/L 136-145 [facility] WBC (Bld) [#/Vol] 4.8 10*3/uL 4.4-11.0 [facility] Blood erythrocytes count (nu mber/volume)Ordered By: Jenn Perez on 09-01-2023 RBC (Bld) [#/Vol] 4.02 10*6/uL 4.6-6.2 [facility] Blood hemoglobin measurement (mass/volume)Ordered By: Jenn Perez on 09-01-2023 Hemoglobin (Bld) [Mass/Vol] 11.2 g/dL 13.0-16.5 [facility] Blood lymphocytes/100 leukoc ytesOrdered By: Jenn Perez on 09-01-2023 Lymphocytes/100 WBC (Bld) 6.5 % 19-41 [facility] Blood manual differential co mment interpretation (narrative result)Ordered By: Jenn Perez on 09-01-2023 Manual differential comment Johnny (Bld) [Interp] COMMENT [facility] Comment on above: LYMPHOPENIA. Blood monocytes/100 leukocyt esOrdered By: Jenn Perez on 09-01-2023 Monocytes/100 WBC (Bld) 8.8 % 0-10 [facility] Blood platelet mean volumeOr dered By: Jenn Perez on 09-01-2023 Platelet mean volume (Bld) [Entitic vol] 9.9 fL 6.2-12.0 [facility] Determination of erythrocyte mean corpuscular volume (MCV)Ordered By: Jenn Perez on 09-01-2023 MCV (RBC) [Entitic vol] 89.8 fL 80-94 [facility] Hematocrit Auto (Bld) [Volum e fraction]Ordered By: Jenn Perez on 09-01-2023 Hematocrit (Bld) [Volume fraction] 36.1 % 40-54 [facility] Interpretation of serum or p lasma protein pattern by immunofixation (narrative resultOrdered By: Jenn Perez on 09-01-2023 Protein Fractions Immunofixation Johnny [Interp] 0.1 g/dL Not Observed [facility] Laboratory - Chemistry and C hemistry - challengeOrdered By: Jenn Perez on 09-01-2023 ALP [Catalytic activity/Vol] 63 U/L 45-117 [facility] ALT [Catalytic activity/Vol] 14 U/L 16-61 [facility] CO2 [Moles/Vol] 31.0 mmol/L 21.0-32.0 [facility] Magnesium [Mass/Vol] 1.9 mg/dL 1.6-2.6 [facility] Urea nitrogen/Creatinine [Mass ratio] 23.0 mg/mg 10-20 [facility] Laboratory - Hematology and Cell countsOrdered By: Jenn Perez on 09-01-2023 Erythrocyte distribution width (RBC) [Entitic vol] 54.0 fL 35.1-43.9 [facility] Erythrocyte distribution width (RBC) [Ratio] 16.4 % 11.6-14.6 [facility] Immature granulocytes/100 WBC (Bld) 0.400 % 0.0-0.9 [facility] Comment on above: IG% - Immature Granu locytes (promyelocytes, myelocytes and metamyelocytes) > 1% indicates that a LEFT SHIFT is Present. MCH (RBC) [Entitic mass] 27.9 pg 27.0-32.0 [facility] Nucleated RBC/100 WBC (Bld) [Ratio] 0 % 0-5 [facility] MCHC Auto (RBC) [Mass/Vol]Or dered By: Jenn Perez on 09-01-2023 MCHC (RBC) [Mass/Vol] 31.0 g/dL 32-36 [facility] No Panel InformationOrdered By: Jenn Perez on 09-01-2023 Addendum Document Comment . [facility] Comment on above: Protein electrophore sis scan will follow via computer,mail, or forging die sinker delivery. Estimated Creatinine Clearance Calc 63.21 ml/min [facility] Estimated GFR (MDRD) Amer 136 mL/min >60 [facility] Comment on above: GFR Calc Estimated GFR (MDRD) Non-Af Amer 112 mL/min >60 [facility] Comment on above: Non- GFR Calc Free Lambda Light Chains, Quant 11.5 mg/L 5.7-26.3 [facility] Platelets bldOrdered By: Lam Perez on 09-01-2023 Platelets (Bld) [#/Vol] 251 10*3/uL 150-450 [facility] Serum [id number] measu rement by electrophoresisOrdered By: Jenn Perez on 09-01-2023 Alpha 1 globulin Elph [Mass/Vol] 0.3 g/dL 0.0-0.4 [facility] Alpha 1 globulin Elph [Mass/Vol] 1.0 g/dL 0.4-1.0 [facility] Serum globulin measurement ( mass/volume)Ordered By: Jenn Perez on 09-01-2023 Globulin (S) [Mass/Vol] 2.5 g/dL 2.2-3.9 [facility] Serum immunoglobulin kappa l ight chains/immunoglobulin lambda light chains mass ratioOrdered By: Jenn Perez on 09-01-2023 Immunoglobulin light chains.kappa/Immunoglobu dav light chains.lambda (S) [Mass ratio] 1.60 0.26-1.65 [facility] Comment on above: Performed at: [place] [id number] Director: Micky Arreola PhD, Phone: [phone] Serum or plasma IgA measurem ent (mass/volume)Ordered By: Jenn Perez on 09-01-2023 IgA [Mass/Vol] 58 mg/dL 61-437 [facility] Serum or plasma IgG measurem ent (mass/volume)Ordered By: Jenn Perez on 09-01-2023 IgG [Mass/Vol] 587 mg/dL 603-1613 [facility] Serum or plasma IgM measurem ent (mass/volume)Ordered By: Jenn Perez on 09-01-2023 IgM [Mass/Vol] 14 mg/dL 20-172 [facility] Comment on above: Result confirmed on concentration. Serum or plasma albumin giovanny urement (mass/volume)Ordered By: Jenn Perez on 09-01-2023 Albumin [Mass/Vol] 2.9 g/dL 3.2-5.0 [facility] Serum or plasma albumin/glob ulin mass ratioOrdered By: Jnen Perez on 09-01-2023 Albumin/Globulin [Mass ratio] 0.9 {ratio} 0.9-2.4 [facility] Serum or plasma beta globuli n measurement by electrophoresis (mass/volume)Ordered By: Jenn Perez on 09-01-2023 Beta globulin Elph [Mass/Vol] 0.7 g/dL 0.7-1.3 [facility] Serum or plasma calcium giovanny urement (mass/volume)Ordered By: Jenn Perez on 09-01-2023 Calcium [Mass/Vol] 8.7 mg/dL 8.5-10.1 [facility] Serum or plasma creatinine m easurement (mass/volume)Ordered By: Jenn Perez on 09-01-2023 Creatinine [Mass/Vol] 0.74 mg/dL 0.70-1.30 [facility] Comment on above: The validity of the calculated GFR & GFRAA in patients over 70 years has not been determined. Clinical correlation is essential. Serum or plasma gamma globul in measurement by electrophoresis (mass/volume)Ordered By: Jenn Perez on 09-01-2023 Gamma globulin Elph [Mass/Vol] 0.5 g/dL 0.4-1.8 [facility] Serum or plasma immunoelectr ophoresis interpretation (nominal result)Ordered By: Jenn Perez on 09-01-2023 Interpretation IEP [Interp] Comment . [facility] Comment on above: Immunofixation shows IgG monoclonal protein with kappalight chain specificity. PLEASE NOTE: Samples from patients receiving DARZALEX(R)(daratumumab) or SARCLISA(R)(isatuximab-multicare healthc) treatmentcan appear as an "IgG kappa" and mask a complete response(CR). If this patient is receiving these therapies, thisIFE assay interference can be removed by ordering testnumber 059248-"Immunofixation, Daratumumab-Specific,Serum" or [id number]-"Immunofixation, Isatuximab-Specific,Serum" and submitting a new sample for testing or bycalling the lab to add this test to the current sample. Serum or plasma immunoglobul in kappa light chains measurement (mass/volume)Ordered By: Jenn Perez on 09-01-2023 Immunoglobulin light chains.kappa [Mass/Vol] 18.4 mg/L 3.3-19.4 [facility] Serum or plasma urea nitroge n measurement (mass/volume)Ordered By: Jenn Perez on 09-01-2023 Urea nitrogen [Mass/Vol] 17 mg/dL 7-18 [facility] Thin prep Papanicolaou smear with manual screeningOrdered By: Jenn Perez on 09-01-2023 Thin prep Papanicolaou smear with manual screening 13 U/L 15-37 [facility] Thin prep Papanicolaou smear with manual screening 6 5-15 [facility] Thin prep Papanicolaou smear with manual screening 1.3 0.7-1.7 [facility] Total protein bloodOrdered B y: Jenn Perez on 09-01-2023 Protein [Mass/Vol] 5.5 g/dL 6.0-8.5 [facility] Absolute lymphocyte countOrd ered By: Jose Guy on 08-30-2023 Lymphocytes Auto (Unsp spec) [#/Vol] 0.34 10*3/uL 0.83-4.51 [facility] Basophil percentageOrdered B y: Jose Guy on 08-30-2023 Basophils/100 WBC (Bld) 0.8 % 0-1 [facility] Eosinophils/100 WBC (Bld) 8.3 % 0-5 [facility] Neutrophils (Bld) [#/Vol] 1.4 10*3/uL 2.0-7.7 [facility] Neutrophils/100 WBC (Bld) 59.4 % 47-70 [facility] WBC (Bld) [#/Vol] 2.4 10*3/uL 4.4-11.0 [facility] Blood erythrocytes count (nu mber/volume)Ordered By: Jose Guy on 08-30-2023 RBC (Bld) [#/Vol] 3.66 10*6/uL 4.6-6.2 [facility] Blood hemoglobin measurement (mass/volume)Ordered By: Jose Guy on 08-30-2023 Hemoglobin (Bld) [Mass/Vol] 10.0 g/dL 13.0-16.5 [facility] Blood lymphocytes/100 leukoc ytesOrdered By: Jose Guy on 08-30-2023 Lymphocytes/100 WBC (Bld) 14.1 % 19-41 [facility] Blood manual differential co mment interpretation (narrative result)Ordered By: Jose Guy on 08-30-2023 Manual differential comment Johnny (Bld) [Interp] COMMENT [facility] Comment on above: LYMPHOPENIA. Blood monocytes/100 leukocyt esOrdered By: Jose Guy on 08-30-2023 Monocytes/100 WBC (Bld) 16.6 % 0-10 [facility] Blood platelet mean volumeOr dered By: Jose Guy on 08-30-2023 Platelet mean volume (Bld) [Entitic vol] 11.8 fL 6.2-12.0 [facility] Determination of erythrocyte mean corpuscular volume (MCV)Ordered By: Jose Guy on 08-30-2023 MCV (RBC) [Entitic vol] 91.3 fL 80-94 [facility] Hematocrit Auto (Bld) [Volum e fraction]Ordered By: Jose Guy on 08-30-2023 Hematocrit (Bld) [Volume fraction] 33.4 % 40-54 [facility] Laboratory - Hematology and Cell countsOrdered By: Jose Guy on 08-30-2023 Erythrocyte distribution width (RBC) [Entitic vol] 56.8 fL 35.1-43.9 [facility] Erythrocyte distribution width (RBC) [Ratio] 16.7 % 11.6-14.6 [facility] Immature granulocytes/100 WBC (Bld) 0.800 % 0.0-0.9 [facility] Comment on above: IG% - Immature Granu locytes (promyelocytes, myelocytes and metamyelocytes) > 1% indicates that a LEFT SHIFT is Present. MCH (RBC) [Entitic mass] 27.3 pg 27.0-32.0 [facility] Nucleated RBC/100 WBC (Bld) [Ratio] 0 % 0-5 [facility] MCHC Auto (RBC) [Mass/Vol]Or dered By: Jose Guy on 08-30-2023 MCHC (RBC) [Mass/Vol] 29.9 g/dL 32-36 [facility] Platelets bldOrdered By: Cheo Guy on 08-30-2023 Platelets (Bld) [#/Vol] 194 10*3/uL 150-450 [facility] Review by pathologistOrdered By: Jose uGy on 08-30-2023 Pathologist review Johnny (Unsp spec) [Interp] Reviewed [facility] Comment on above: Previous reported re sult: Lisseth contreras Edited by: CLIFF on 08/31/23:1410Leukopenia, neutropenia and normocytic anemia.Jordon De Jesus M.D. 08/31/23 AMENDED REPORT 08/31/23 1410 PATH REV previously reported as: Lisseth contreras Anaerobic cultureOrdered By: Te Shah on 08-26-2023 Bacteria identified Anaer cx Nom (Unsp spec) No anaerobic bacteria isolated. [facility] Bacteria identified Anaer cx Nom (Unsp spec) No anaerobic bacteria isolated. [facility] Bacteria identified Cx Nom ( Wound)Ordered By: Te Shah on 08-26-2023 Wound Culture Meth. resistant Stap h. aureus [facility] Wound Culture Meth. resistant Stap h. aureus [facility] Gram stain for investigation of transfusion reactionOrdered By: Te Shah on 08-26-2023 Microscopic observation Gram stain Nom (Unsp spec) [facility] Microscopic observation Gram stain Nom (Unsp spec) [facility] Basophil percentageOrdered B y: Iraida Andrey on 08-13-2023 Bilirubin [Mass/Vol] 0.30 mg/dL 0.20-1.00 [facility] Comment on above: For patients on eltr ombopag therapy, use of Dimension [place] TBIL is not recommended. Chloride [Moles/Vol] 107 mmol/L 98-107 [facility] Glucose [Mass/Vol] 101 mg/dL 74-106 [facility] Comment on above: Fasting Glucose resu lt from 100 to 125 mg/dL suggests IMPAIRED HOMEOSTASIS per A.D.A. criteria. Potassium [Moles/Vol] 3.9 mmol/L 3.5-5.1 [facility] Protein [Mass/Vol] 5.4 g/dL 6.4-8.2 [facility] Sodium [Moles/Vol] 142 mmol/L 136-145 [facility] WBC (Bld) [#/Vol] 3.3 10*3/uL 4.4-11.0 [facility] Blood erythrocytes count (nu mber/volume)Ordered By: Iraida Balderas on 08-13-2023 RBC (Bld) [#/Vol] 3.51 10*6/uL 4.6-6.2 [facility] Blood hemoglobin measurement (mass/volume)Ordered By: Iraida Balderas on 08-13-2023 Hemoglobin (Bld) [Mass/Vol] 9.8 g/dL 13.0-16.5 [facility] Blood platelet mean volumeOr dered By: Iraida Balderas on 08-13-2023 Platelet mean volume (Bld) [Entitic vol] 12.0 fL 6.2-12.0 [facility] Determination of erythrocyte mean corpuscular volume (MCV)Ordered By: Iraida Balderas on 08-13-2023 MCV (RBC) [Entitic vol] 91.2 fL 80-94 [facility] Hematocrit Auto (Bld) [Volum e fraction]Ordered By: Iraida Balderas on 08-13-2023 Hematocrit (Bld) [Volume fraction] 32.0 % 40-54 [facility] [facility] Laboratory - Chemistry and C hemistry - challengeOrdered By: Iraida Balderas on 08-13-2023 ALP [Catalytic activity/Vol] 53 U/L 45-117 [facility] ALT [Catalytic activity/Vol] 14 U/L 16-61 [facility] CO2 [Moles/Vol] 29.0 mmol/L 21.0-32.0 [facility] Globulin (S) [Mass/Vol] 2.7 g/dL 2.2-4.2 [facility] Urea nitrogen/Creatinine [Mass ratio] 16.8 mg/mg 10-20 [facility] Laboratory - Hematology and Cell countsOrdered By: Iraida Balderas on 08-13-2023 Erythrocyte distribution width (RBC) [Entitic vol] 59.4 fL 35.1-43.9 [facility] Erythrocyte distribution width (RBC) [Ratio] 17.7 % 11.6-14.6 [facility] MCH (RBC) [Entitic mass] 27.9 pg 27.0-32.0 [facility] MCHC Auto (RBC) [Mass/Vol]Or dered By: Iraida Balderas on 08-13-2023 MCHC (RBC) [Mass/Vol] 30.6 g/dL 32-36 [facility] No Panel InformationOrdered By: Iraida Balderas on 08-13-2023 Estimated GFR (MDRD) Amer 130 mL/min >60 [facility] Comment on above: GFR Calc Estimated GFR (MDRD) Non-Af Amer 107 mL/min >60 [facility] Comment on above: Non- GFR Calc Thyroid Stimulating Hormone (TSH) 2.79 uIU/mL 0.358-3.74 [facility] Platelets bldOrdered By: Iraida Balderas on 08-13-2023 Platelets (Bld) [#/Vol] 143 10*3/uL 150-450 [facility] Serum or plasma albumin giovanny urement (mass/volume)Ordered By: Iraida Balderas on 08-13-2023 Albumin [Mass/Vol] 2.7 g/dL 3.2-5.0 [facility] Serum or plasma albumin/glob ulin mass ratioOrdered By: Iraida Balderas on 08-13-2023 Albumin/Globulin [Mass ratio] 1.0 {ratio} 0.9-2.4 [facility] Serum or plasma calcium giovanny urement (mass/volume)Ordered By: Iraida Balderas on 08-13-2023 Calcium [Mass/Vol] 8.5 mg/dL 8.5-10.1 [facility] Serum or plasma creatinine m easurement (mass/volume)Ordered By: Iraida Balderas on 08-13-2023 Creatinine [Mass/Vol] 0.77 mg/dL 0.70-1.30 [facility] Comment on above: The validity of the calculated GFR & GFRAA in patients over 70 years has not been determined. Clinical correlation is essential. Serum or plasma transthyreti n measurement (mass/volume)Ordered By: Iraida Balderas on 08-13-2023 Prealbumin [Mass/Vol] 19.8 mg/dL 20.0-40.0 [facility] Serum or plasma urea nitroge n measurement (mass/volume)Ordered By: Iraida Balderas on 08-13-2023 Urea nitrogen [Mass/Vol] 13 mg/dL 7-18 [facility] Thin prep Papanicolaou smear with manual screeningOrdered By: Iraida Balderas on 08-13-2023 Thin prep Papanicolaou smear with manual screening 7 U/L 15-37 [facility] Thin prep Papanicolaou smear with manual screening 6 5-15 [facility] Basophil percentageOrdered B y: Iraida Balderas on 08-06-2023 Bilirubin [Mass/Vol] 0.30 mg/dL 0.20-1.00 [facility] Comment on above: For patients on eltr ombopag therapy, use of Dimension [place] TBIL is not recommended. Chloride [Moles/Vol] 106 mmol/L 98-107 [facility] Glucose [Mass/Vol] 119 mg/dL 74-106 [facility] Comment on above: Fasting Glucose resu lt from 100 to 125 mg/dL suggests IMPAIRED HOMEOSTASIS per A.D.A. criteria. Potassium [Moles/Vol] 4.2 mmol/L 3.5-5.1 [facility] Protein [Mass/Vol] 5.8 g/dL 6.4-8.2 [facility] Sodium [Moles/Vol] 140 mmol/L 136-145 [facility] WBC (Bld) [#/Vol] 10.8 10*3/uL 4.4-11.0 [facility] Blood erythrocytes count (nu mber/volume)Ordered By: Iraida Balderas on 08-06-2023 RBC (Bld) [#/Vol] 3.78 10*6/uL 4.6-6.2 [facility] Blood hemoglobin measurement (mass/volume)Ordered By: Iraida Balderas on 08-06-2023 Hemoglobin (Bld) [Mass/Vol] 10.4 g/dL 13.0-16.5 [facility] Blood platelet mean volumeOr dered By: Iraida Balderas on 08-06-2023 Platelet mean volume (Bld) [Entitic vol] 10.2 fL 6.2-12.0 [facility] Determination of erythrocyte mean corpuscular volume (MCV)Ordered By: Iraida Balderas on 08-06-2023 MCV (RBC) [Entitic vol] 90.2 fL 80-94 [facility] Hematocrit Auto (Bld) [Volum e fraction]Ordered By: Iraida Balderas on 08-06-2023 Hematocrit (Bld) [Volume fraction] 34.1 % 40-54 [facility] Laboratory - Chemistry and C hemistry - challengeOrdered By: Iraida Balderas on 08-06-2023 ALP [Catalytic activity/Vol] 52 U/L 45-117 [facility] ALT [Catalytic activity/Vol] 14 U/L 16-61 [facility] CO2 [Moles/Vol] 31.0 mmol/L 21.0-32.0 [facility] Globulin (S) [Mass/Vol] 2.9 g/dL 2.2-4.2 [facility] Urea nitrogen/Creatinine [Mass ratio] 25.0 mg/mg 10-20 [facility] Laboratory - Hematology and Cell countsOrdered By: Iraida Balderas on 08-06-2023 Erythrocyte distribution width (RBC) [Entitic vol] 57.7 fL 35.1-43.9 [facility] Erythrocyte distribution width (RBC) [Ratio] 17.5 % 11.6-14.6 [facility] MCH (RBC) [Entitic mass] 27.5 pg 27.0-32.0 [facility] MCHC Auto (RBC) [Mass/Vol]Or dered By: Iraida Balderas on 08-06-2023 MCHC (RBC) [Mass/Vol] 30.5 g/dL 32-36 [facility] No Panel InformationOrdered By: Iraida Balderas on 08-06-2023 Estimated GFR (MDRD) Amer 124 mL/min >60 [facility] Comment on above: GFR Calc Estimated GFR (MDRD) Non-Af Amer 103 mL/min >60 [facility] Comment on above: Non- GFR Calc Platelets bldOrdered By: Iraida Balderas on 08-06-2023 Platelets (Bld) [#/Vol] 223 10*3/uL 150-450 [facility] Serum or plasma albumin giovanny urement (mass/volume)Ordered By: Iraida Balderas on 08-06-2023 Albumin [Mass/Vol] 2.9 g/dL 3.2-5.0 [facility] Serum or plasma albumin/glob ulin mass ratioOrdered By: Iraida Balderas on 08-06-2023 Albumin/Globulin [Mass ratio] 1.0 {ratio} 0.9-2.4 [facility] Serum or plasma calcium giovanny urement (mass/volume)Ordered By: Iraida Balderas on 08-06-2023 Calcium [Mass/Vol] 8.9 mg/dL 8.5-10.1 [facility] Serum or plasma creatinine m easurement (mass/volume)Ordered By: Iraida Balderas on 08-06-2023 Creatinine [Mass/Vol] 0.80 mg/dL 0.70-1.30 [facility] Comment on above: The validity of the calculated GFR & GFRAA in patients over 70 years has not been determined. Clinical correlation is essential. Serum or plasma urea nitroge n measurement (mass/volume)Ordered By: Iraida Balderas on 08-06-2023 Urea nitrogen [Mass/Vol] 20 mg/dL 7-18 [facility] Thin prep Papanicolaou smear with manual screeningOrdered By: Iraida Balderas on 08-06-2023 Thin prep Papanicolaou smear with manual screening 7 U/L 15-37 [facility] Thin prep Papanicolaou smear with manual screening 3 5-15 [facility] Absolute lymphocyte countOrd ered By: Jenn Perez on 08-04-2023 Lymphocytes Auto (Unsp spec) [#/Vol] 0.63 10*3/uL 0.83-4.51 [facility] Basophil percentageOrdered B y: Jenn Perez on 08-04-2023 Basophils/100 WBC (Bld) 0.4 % 0-1 [facility] Bilirubin [Mass/Vol] 0.30 mg/dL 0.20-1.00 [facility] Comment on above: For patients on eltr ombopag therapy, use of Dimension [place] TBIL is not recommended. Chloride [Moles/Vol] 104 mmol/L 98-107 [facility] Eosinophils/100 WBC (Bld) 4.4 % 0-5 [facility] Glucose [Mass/Vol] 102 mg/dL 74-106 [facility] Comment on above: Fasting Glucose resu lt from 100 to 125 mg/dL suggests IMPAIRED HOMEOSTASIS per A.D.A. criteria. Neutrophils (Bld) [#/Vol] 3.9 10*3/uL 2.0-7.7 [facility] Neutrophils/100 WBC (Bld) 73.5 % 47-70 [facility] Potassium [Moles/Vol] 4.1 mmol/L 3.5-5.1 [facility] Protein [Mass/Vol] 6.3 g/dL 6.4-8.2 [facility] Sodium [Moles/Vol] 138 mmol/L 136-145 [facility] WBC (Bld) [#/Vol] 5.3 10*3/uL 4.4-11.0 [facility] Blood erythrocytes count (nu mber/volume)Ordered By: Jenn Perez on 08-04-2023 RBC (Bld) [#/Vol] 4.00 10*6/uL 4.6-6.2 [facility] Blood hemoglobin measurement (mass/volume)Ordered By: Jenn Perez on 08-04-2023 Hemoglobin (Bld) [Mass/Vol] 11.0 g/dL 13.0-16.5 [facility] Blood lymphocytes/100 leukoc ytesOrdered By: Jenn Perez on 08-04-2023 Lymphocytes/100 WBC (Bld) 12.0 % 19-41 [facility] Blood monocytes/100 leukocyt esOrdered By: Jenn Perez on 08-04-2023 Monocytes/100 WBC (Bld) 9.5 % 0-10 [facility] Blood platelet mean volumeOr dered By: Jenn Perez on 08-04-2023 Platelet mean volume (Bld) [Entitic vol] 10.3 fL 6.2-12.0 [facility] Determination of erythrocyte mean corpuscular volume (MCV)Ordered By: Jenn Perez on 08-04-2023 MCV (RBC) [Entitic vol] 90.0 fL 80-94 [facility] Hematocrit Auto (Bld) [Volum e fraction]Ordered By: Jenn Perez on 08-04-2023 Hematocrit (Bld) [Volume fraction] 36.0 % 40-54 [facility] Laboratory - Chemistry and C hemistry - challengeOrdered By: Jenn Perez on 08-04-2023 ALP [Catalytic activity/Vol] 61 U/L 45-117 [facility] ALT [Catalytic activity/Vol] 19 U/L 16-61 [facility] CO2 [Moles/Vol] 32.0 mmol/L 21.0-32.0 [facility] Globulin (S) [Mass/Vol] 3.2 g/dL 2.2-4.2 [facility] Urea nitrogen/Creatinine [Mass ratio] 14.4 mg/mg 10-20 [facility] Laboratory - Hematology and Cell countsOrdered By: Jenn Perez on 08-04-2023 Erythrocyte distribution width (RBC) [Entitic vol] 57.2 fL 35.1-43.9 [facility] Erythrocyte distribution width (RBC) [Ratio] 17.4 % 11.6-14.6 [facility] Immature granulocytes/100 WBC (Bld) 0.200 % 0.0-0.9 [facility] Comment on above: IG% - Immature Granu locytes (promyelocytes, myelocytes and metamyelocytes) > 1% indicates that a LEFT SHIFT is Present. MCH (RBC) [Entitic mass] 27.5 pg 27.0-32.0 [facility] Nucleated RBC/100 WBC (Bld) [Ratio] 0 % 0-5 [facility] MCHC Auto (RBC) [Mass/Vol]Or dered By: Jenn Perez on 08-04-2023 MCHC (RBC) [Mass/Vol] 30.6 g/dL 32-36 [facility] No Panel InformationOrdered By: Jenn Perez on 08-04-2023 Estimated GFR (MDRD) Amer 108 mL/min >60 [facility] Comment on above: GFR Calc Estimated GFR (MDRD) Non-Af Amer 89 mL/min >60 [facility] Comment on above: Non- GFR Calc Platelets bldOrdered By: Lam Perez on 08-04-2023 Platelets (Bld) [#/Vol] 205 10*3/uL 150-450 [facility] Serum or plasma albumin giovanny urement (mass/volume)Ordered By: Jenn Perez on 08-04-2023 Albumin [Mass/Vol] 3.1 g/dL 3.2-5.0 [facility] Serum or plasma albumin/glob ulin mass ratioOrdered By: Jenn Perez on 08-04-2023 Albumin/Globulin [Mass ratio] 1.0 {ratio} 0.9-2.4 [facility] Serum or plasma calcium giovanny urement (mass/volume)Ordered By: Jenn Perez on 08-04-2023 Calcium [Mass/Vol] 9.2 mg/dL 8.5-10.1 [facility] Serum or plasma creatinine m easurement (mass/volume)Ordered By: Jenn Perez on 08-04-2023 Creatinine [Mass/Vol] 0.90 mg/dL 0.70-1.30 [facility] Comment on above: The validity of the calculated GFR & GFRAA in patients over 70 years has not been determined. Clinical correlation is essential. Serum or plasma urea nitroge n measurement (mass/volume)Ordered By: Jenn Perez on 08-04-2023 Urea nitrogen [Mass/Vol] 13 mg/dL 7-18 [facility] Thin prep Papanicolaou smear with manual screeningOrdered By: Jenn Perez on 08-04-2023 Thin prep Papanicolaou smear with manual screening 9 U/L 15-37 [facility] Thin prep Papanicolaou smear with manual screening 2 5-15 [facility] Absolute lymphocyte countOrd ered By: Jenn Perez on 2023 Lymphocytes Auto (Unsp spec) [#/Vol] 0.63 10*3/uL 0.83-4.51 [facility] Albumin Elph [Mass/Vol]Order ed By: Jenn Perez on 2023 Albumin [Mass/Vol] 2.8 g/dL 2.9-4.4 [facility] Basophil percentageOrdered B y: Jenn Perez on 2023 Basophils/100 WBC (Bld) 0.3 % 0-1 [facility] Bilirubin [Mass/Vol] 0.30 mg/dL 0.20-1.00 [facility] Comment on above: For patients on eltr ombopag therapy, use of Dimension [place] TBIL is not recommended. Chloride [Moles/Vol] 106 mmol/L 98-107 [facility] Eosinophils/100 WBC (Bld) 0.7 % 0-5 [facility] Glucose [Mass/Vol] 88 mg/dL 74-106 [facility] Neutrophils (Bld) [#/Vol] 5.3 10*3/uL 2.0-7.7 [facility] Neutrophils/100 WBC (Bld) 74.9 % 47-70 [facility] Potassium [Moles/Vol] 3.7 mmol/L 3.5-5.1 [facility] Protein [Mass/Vol] 6.0 g/dL 6.4-8.2 [facility] Sodium [Moles/Vol] 142 mmol/L 136-145 [facility] WBC (Bld) [#/Vol] 7.1 10*3/uL 4.4-11.0 [facility] Blood erythrocytes count (nu mber/volume)Ordered By: Jenn Perez on 2023 RBC (Bld) [#/Vol] 3.93 10*6/uL 4.6-6.2 [facility] Blood hemoglobin measurement (mass/volume)Ordered By: Jenn Perez on 2023 Hemoglobin (Bld) [Mass/Vol] 10.8 g/dL 13.0-16.5 [facility] Blood lymphocytes/100 leukoc ytesOrdered By: Jenn Perez on 2023 Lymphocytes/100 WBC (Bld) 8.9 % 19-41 [facility] Blood monocytes/100 leukocyt esOrdered By: Jenn Perez on 2023 Monocytes/100 WBC (Bld) 14.6 % 0-10 [facility] Blood platelet mean volumeOr dered By: Jenn Perez on 2023 Platelet mean volume (Bld) [Entitic vol] 9.9 fL 6.2-12.0 [facility] Determination of erythrocyte mean corpuscular volume (MCV)Ordered By: Jenn Perez on 2023 MCV (RBC) [Entitic vol] 91.9 fL 80-94 [facility] Hematocrit Auto (Bld) [Volum e fraction]Ordered By: Jenn Perez on 2023 Hematocrit (Bld) [Volume fraction] 36.1 % 40-54 [facility] Interpretation of serum or p lasma protein pattern by immunofixation (narrative resultOrdered By: Jenn Perez on 2023 Protein Fractions Immunofixation Johnny [Interp] 0.2 g/dL Not Observed [facility] Iron (Unsp spec) [Mass/Mass] Ordered By: Jenn Perez on 2023 Iron [Mass/Vol] 27 ug/dL Low 65-175 [facility] Iron measurement (mass/mass) Ordered By: Jenn Perez on 2023 Iron (Unsp spec) [Mass/Mass] 27 ug/dL 65-175 [facility] Iron saturation [Mass fracti on]Ordered By: Jenn Perez on 2023 Iron Saturation 10.6 % Low 15.0-55.0 [facility] Laboratory - Chemistry and C hemistry - challengeOrdered By: [facility] 2023 ALP [Catalytic activity/Vol] 66 U/L 45-117 [facility] ALT [Catalytic activity/Vol] 30 U/L 16-61 [facility] CO2 [Moles/Vol] 33.0 mmol/L 21.0-32.0 [facility] Cobalamin (Vitamin B12) [Mass/Vol] 387 pg/mL 211-911 [facility] Urea nitrogen/Creatinine [Mass ratio] 18.7 mg/mg 10-20 [facility] Laboratory - Hematology and Cell countsOrdered By: [facility] 2023 Erythrocyte distribution width (RBC) [Entitic vol] 61.8 fL 35.1-43.9 [facility] Erythrocyte distribution width (RBC) [Ratio] 18.2 % 11.6-14.6 [facility] Immature granulocytes/100 WBC (Bld) 0.600 % 0.0-0.9 [facility] Comment on above: IG% - Immature Granu locytes (promyelocytes, myelocytes and metamyelocytes) > 1% indicates that a LEFT SHIFT is Present. MCH (RBC) [Entitic mass] 27.5 pg 27.0-32.0 [facility] Nucleated RBC/100 WBC (Bld) [Ratio] 0 % 0-5 [facility] MCHC Auto (RBC) [Mass/Vol]Or dered By: Jenn Perez on 2023 MCHC (RBC) [Mass/Vol] 29.9 g/dL 32-36 [facility] No Panel InformationOrdered By: Jenn Perez on 2023 Addendum Document Comment . [facility] Comment on above: Protein electrophore sis scan will follow via computer,mail, or forging die sinker delivery. Estimated GFR (MDRD) Amer 134 mL/min >60 [facility] Comment on above: GFR Calc Estimated GFR (MDRD) Non-Af Amer 111 mL/min >60 [facility] Comment on above: Non- GFR Calc Free Lambda Light Chains, Quant 4.1 mg/L 5.7-26.3 [facility] Total Iron Binding Capacity 254 ug/dL 250-450 [facility] Platelets bldOrdered By: Lam Perez on 2023 Platelets (Bld) [#/Vol] 195 10*3/uL 150-450 [facility] Serum [id number] measu rement by electrophoresisOrdered By: Jenn Perez on 2023 Alpha 1 globulin Elph [Mass/Vol] 0.3 g/dL 0.0-0.4 [facility] Alpha 1 globulin Elph [Mass/Vol] 1.0 g/dL 0.4-1.0 [facility] Serum globulin measurement ( mass/volume)Ordered By: Jenn Perez on 2023 Globulin (S) [Mass/Vol] 2.5 g/dL 2.2-3.9 [facility] Serum immunoglobulin kappa l ight chains/immunoglobulin lambda light chains mass ratioOrdered By: Jenn Perez on 2023 Immunoglobulin light chains.kappa/Immunoglobu dav light chains.lambda (S) [Mass ratio] 1.71 0.26-1.65 [facility] Comment on above: Performed at: [address] [id number] Director: Micky Arreola PhD, Phone: [phone] Serum or plasma IgA measurem ent (mass/volume)Ordered By: Jenn Perez on 2023 IgA [Mass/Vol] 34 mg/dL 61-437 [facility] Comment on above: Result confirmed on concentration. Serum or plasma IgG measurem ent (mass/volume)Ordered By: Jenn Perez on 2023 IgG [Mass/Vol] 488 mg/dL 603-1613 [facility] Serum or plasma IgM measurem ent (mass/volume)Ordered By: Jenn Perez on 2023 IgM [Mass/Vol] 6 mg/dL 20-172 [facility] Comment on above: Result confirmed on concentration. Serum or plasma albumin giovanny urement (mass/volume)Ordered By: Jenn Perez on 2023 Albumin [Mass/Vol] 2.7 g/dL 3.2-5.0 [facility] Serum or plasma albumin/glob ulin mass ratioOrdered By: Jenn Perez on 2023 Albumin/Globulin [Mass ratio] 0.8 {ratio} 0.9-2.4 [facility] Serum or plasma beta globuli n measurement by electrophoresis (mass/volume)Ordered By: Jenn Perez on 2023 Beta globulin Elph [Mass/Vol] 0.8 g/dL 0.7-1.3 [facility] Serum or plasma calcium giovanny urement (mass/volume)Ordered By: Jenn Perez on 2023 Calcium [Mass/Vol] 8.5 mg/dL 8.5-10.1 [facility] Serum or plasma creatinine m easurement (mass/volume)Ordered By: Jenn Perez on 2023 Creatinine [Mass/Vol] 0.75 mg/dL 0.70-1.30 [facility] Comment on above: The validity of the calculated GFR & GFRAA in patients over 70 years has not been determined. Clinical correlation is essential. Serum or plasma ferritin blake surement (mass/volume)Ordered By: Jenn Perez on 2023 Ferritin [Mass/Vol] 115 ng/mL 26-388 [facility] Serum or plasma gamma globul in measurement by electrophoresis (mass/volume)Ordered By: Jenn Perez on 2023 Gamma globulin Elph [Mass/Vol] 0.4 g/dL 0.4-1.8 [facility] Serum or plasma immunoelectr ophoresis interpretation (nominal result)Ordered By: Jenn Perez on 2023 Interpretation IEP [Interp] Comment . [facility] Comment on above: Immunofixation shows IgG monoclonal protein with kappalight chain specificity. PLEASE NOTE: Samples from patients receiving DARZALEX(R)(daratumumab) or SARCLISA(R)(isatuximab-irfc) treatmentcan appear as an "IgG kappa" and mask a complete response(CR). If this patient is receiving these therapies, thisIFE assay interference can be removed by ordering testnumber [id number]-"Immunofixation, Daratumumab-Specific,Serum" or [id number]-"Immunofixation, Isatuximab-Specific,Serum" and submitting a new sample for testing or bycalling the lab to add this test to the current sample. Serum or plasma immunoglobul in kappa light chains measurement (mass/volume)Ordered By: Jenn Perez on 2023 Immunoglobulin light chains.kappa [Mass/Vol] 7.0 mg/L 3.3-19.4 [facility] Serum or plasma iron saturat ion measurement (mass fraction)Ordered By: Jenn Perez on 2023 Iron saturation [Mass fraction] 10.6 % 15.0-55.0 [facility] Serum or plasma urea nitroge n measurement (mass/volume)Ordered By: Jenn Perez on 2023 Urea nitrogen [Mass/Vol] 14 mg/dL 7-18 [facility] Thin prep Papanicolaou smear with manual screeningOrdered By: Jenn Perez on 2023 Thin prep Papanicolaou smear with manual screening 7 U/L 15-37 [facility] Thin prep Papanicolaou smear with manual screening 3 5-15 [facility] Thin prep Papanicolaou smear with manual screening 1.2 0.7-1.7 [facility] Total protein bloodOrdered B y: Jenn Perez on 2023 Protein [Mass/Vol] 5.3 g/dL 6.0-8.5 [facility] Basophil percentageOrdered B y: Iraida Balderas on 07-07-2023 Bilirubin [Mass/Vol] 0.20 mg/dL 0.20-1.00 [facility] Comment on above: For patients on eltr ombopag therapy, use of Dimension [place] TBIL is not recommended. Chloride [Moles/Vol] 103 mmol/L 98-107 [facility] Cholesterol [Mass/Vol] 144 mg/dL <200 [facility] Comment on above: <200 mg/dL Desirable 200-240 mg/dL Borderline >240 mg/dL High Risk Glucose [Mass/Vol] 97 mg/dL 74-106 [facility] Potassium [Moles/Vol] 3.7 mmol/L 3.5-5.1 [facility] Protein [Mass/Vol] 5.6 g/dL 6.4-8.2 [facility] Sodium [Moles/Vol] 140 mmol/L 136-145 [facility] Triglyceride [Mass/Vol] 68 mg/dL <199 [facility] Comment on above: The drugs N-Acetylcy steine and Metamizole may falsely depress this assay.Serum Triglycerides Reference Interval Normal <150 mg/dL Borderline high 150 - 199 mg/dL High 200 - 499 mg/dL Very High > or = 500 mg/dL WBC (Bld) [#/Vol] 4.9 10*3/uL 4.4-11.0 [facility] Blood erythrocytes count (nu mber/volume)Ordered By: Iraida Balderas on 07-07-2023 RBC (Bld) [#/Vol] 3.80 10*6/uL 4.6-6.2 [facility] Blood hemoglobin measurement (mass/volume)Ordered By: Iraida Balderas on 07-07-2023 Hemoglobin (Bld) [Mass/Vol] 10.5 g/dL 13.0-16.5 [facility] Blood platelet mean volumeOr dered By: Iraida Balderas on 07-07-2023 Platelet mean volume (Bld) [Entitic vol] 11.3 fL 6.2-12.0 [facility] Determination of erythrocyte mean corpuscular volume (MCV)Ordered By: Iraida Balderas on 07-07-2023 MCV (RBC) [Entitic vol] 92.1 fL 80-94 [facility] Hematocrit Auto (Bld) [Volum e fraction]Ordered By: Iraida Balderas on 07-07-2023 Hematocrit (Bld) [Volume fraction] 35.0 % 40-54 [facility] Laboratory - Chemistry and C hemistry - challengeOrdered By: Iraida Balderas on 07-07-2023 ALP [Catalytic activity/Vol] 57 U/L 45-117 [facility] ALT [Catalytic activity/Vol] 35 U/L 16-61 [facility] CO2 [Moles/Vol] 31.0 mmol/L 21.0-32.0 [facility] Free T4 [Mass/Vol] 1.24 ng/dL 0.76-1.46 [facility] Globulin (S) [Mass/Vol] 3.0 g/dL 2.2-4.2 [facility] Urea nitrogen/Creatinine [Mass ratio] 18.0 mg/mg 10-20 [facility] Laboratory - Hematology and Cell countsOrdered By: Iraida Balderas on 07-07-2023 Erythrocyte distribution width (RBC) [Entitic vol] 63.1 fL 35.1-43.9 [facility] Erythrocyte distribution width (RBC) [Ratio] 18.5 % 11.6-14.6 [facility] MCH (RBC) [Entitic mass] 27.6 pg 27.0-32.0 [facility] MCHC Auto (RBC) [Mass/Vol]Or dered By: Iraida Balderas on 07-07-2023 MCHC (RBC) [Mass/Vol] 30.0 g/dL 32-36 [facility] No Panel InformationOrdered By: Iraida Balderas on 07-07-2023 Estimated GFR (MDRD) Amer 140 mL/min >60 [facility] Comment on above: GFR Calc Estimated GFR (MDRD) Non-Af Amer 115 mL/min >60 [facility] Comment on above: Non- GFR Calc Thyroid Stimulating Hormone (TSH) 8.69 uIU/mL 0.358-3.74 [facility] Vitamin D 25-Hydroxy 79.7 ng/mL [facility] Comment on above: Vitamin D 25(OH) Sta tus Range Deficiency <20 ng/mL (50nmol/L) Insufficiency 20 - 30 ng/mL (50 - 75 nmol/L) Sufficiency 30 - 100 ng/mL (75 - 250 nmol/L) Toxicity >100 ng/mL (>250 nmol/L) Platelets bldOrdered By: Iraida Balderas on 07-07-2023 Platelets (Bld) [#/Vol] 181 10*3/uL 150-450 [facility] Serum or plasma albumin giovanny urement (mass/volume)Ordered By: Iraida Balderas on 07-07-2023 Albumin [Mass/Vol] 2.6 g/dL 3.2-5.0 [facility] Serum or plasma albumin/glob ulin mass ratioOrdered By: Iraida Balderas on 07-07-2023 Albumin/Globulin [Mass ratio] 0.9 {ratio} 0.9-2.4 [facility] Serum or plasma calcium giovanny urement (mass/volume)Ordered By: Iraida Balderas on 07-07-2023 Calcium [Mass/Vol] 8.4 mg/dL 8.5-10.1 [facility] Serum or plasma cholesterol in HDL measurement (mass/volume)Ordered By: Iraida Balderas on 07-07-2023 Cholesterol in HDL [Mass/Vol] 57 mg/dL >40 [facility] Comment on above: The drugs N-Acetylcy steine and Metamizole may falsely depress this assay. Reference Range HDL <40 mg/dL Low HDL Cholesterol HDL >or= 60 mg/dL High HDL Cholesterol Serum or plasma cholesterol in VLDL measurement (mass/volume)Ordered By: Iraida Balderas on 07-07-2023 Cholesterol in VLDL [Mass/Vol] 14 mg/dL 5-40 [facility] Serum or plasma creatinine m easurement (mass/volume)Ordered By: Iraida Balderas on 07-07-2023 Creatinine [Mass/Vol] 0.72 mg/dL 0.70-1.30 [facility] Comment on above: The validity of the calculated GFR & GFRAA in patients over 70 years has not been determined. Clinical correlation is essential. Serum or plasma low density lipoprotein (LDL) cholesterol measurement (mass/volume)Ordered By: Iraiad Balderas on 07-07-2023 Cholesterol in LDL [Mass/Vol] 73 mg/dL 0-130 [facility] Serum or plasma urea nitroge n measurement (mass/volume)Ordered By: Iraida Balderas on 07-07-2023 Urea nitrogen [Mass/Vol] 13 mg/dL 7-18 [facility] Thin prep Papanicolaou smear with manual screeningOrdered By: Iraida Balderas on 07-07-2023 Thin prep Papanicolaou smear with manual screening 16 U/L 15-37 [facility] Thin prep Papanicolaou smear with manual screening 6 5-15 [facility] CBC AND ELECTRONIC DIFFon Basophils (Bld) [#/Vol] 0.10 10*3/uL High 0.00 - 0.09 K/uL [facility] Basophils/100 WBC (Bld) 2.1 % [facility] Differential cell count method Nom (Bld) Electronic Differential [facility] Eosinophils (Bld) [#/Vol] 0.18 10*3/uL 0.00 - 0.48 K/uL [facility] Eosinophils/100 WBC (Bld) 3.7 % [facility] Erythrocyte distribution width (RBC) [Ratio] 19.6 % High 10.9 - 14.3 % [facility] Hematocrit (Bld) [Volume fraction] 38.6 % Low 39.6 - 48.8 % [facility] Hemoglobin (Bld) [Mass/Vol] 11.9 g/dL Low 13.4 - 16.8 g/dL [facility] Immature granulocytes (Bld) [#/Vol] K/uL NINF - 0.07 K/uL [facility] Immature granulocytes/100 WBC (Bld) 0.4 % [facility] Interpretation and review of laboratory results Abnormal [facility] Lymphocytes (Bld) [#/Vol] 0.53 10*3/uL Low 0.83 - 3.57 K/uL [facility] Lymphocytes/100 WBC (Bld) 10.9 % [facility] MCH (RBC) [Entitic mass] 25.4 pg Low 26. 1 - 33.3 pg [facility] MCHC (RBC) [Mass/Vol] 30.8 g/dL Low 31.9 - 36.5 g/dL [facility] MCV (RBC) [Entitic vol] 82.3 fL 79.0 - 94.5 fL [facility] Comment on above: Results inconsistent with previous results Monocytes (Bld) [#/Vol] 0.30 10*3/uL 0.24 - 0.93 K/uL [facility] Monocytes/100 WBC (Bld) 6.2 % [facility] Neutrophils (Bld) [#/Vol] 3.74 10*3/uL 1.57 - 6.19 K/uL [facility] Nucleated RBC/100 WBC (Bld) [Ratio] 0.0 % [facility] Platelet mean volume (Bld) [Entitic vol] 10.3 fL 8.7 - 12.3 fL [facility] Platelets (Bld) [#/Vol] 204 10*3/uL 146 - 337 K/uL [facility] RBC (Bld) [#/Vol] 4.69 10*6/uL [facility] Segmented neutrophils/100 WBC (Bld) 76.7 % [facility] WBC (Bld) [#/Vol] 4.87 10*3/uL 3.73 - 10.10 K/uL [facility] COMPREHENSIVE METABOLIC PANE [facility] 04-14-2023 Albumin [Mass/Vol] 3.8 g/dL 3.5 - 5.0 g/dL [facility] ALP [Catalytic activity/Vol] 59 U/L 32 - 126 U/L [facility] ALT [Catalytic activity/Vol] 35 U/L 10 - 52 U/L [facility] Anion gap [Moles/Vol] 12 mmol/L 7 - 17 mmol/L [facility] AST [Catalytic activity/Vol] 19 U/L 10 - 39 U/L [facility] Bilirubin [Mass/Vol] 0.2 mg/dL NINF - 1.5 mg/dL [facility] Calcium [Mass/Vol] 8.9 mg/dL 8.6 - 10. 5 mg/dL [facility] Chloride [Moles/Vol] 102 mmol/L 98 - 10 8 mmol/L [facility] CO2 [Moles/Vol] 27 mmol/L 21 - 31 mmol/L [facility] Creatinine [Mass/Vol] 0.81 mg/dL 0.70 - 1.30 mg/dL [facility] GFR/1.73 sq M.predicted CKD-EPI (S/P/Bld) [Vol rate/Area] - PINF [facility] Comment on above: Reported eGFR is bas ed on the CKD-EPI 2020 equation using creatinine, age, and sex. Glucose [Mass/Vol] 92 mg/dL 70 - 99 mg/dL [facility] Osmolality Calc [Osmolality] 287 [facility] Potassium [Moles/Vol] 4.1 mmol/L 3.5 - 5.0 mmol/L [facility] Protein [Mass/Vol] 6.7 g/dL 6.4 - 8.3 g/dL [facility] Sodium [Moles/Vol] 137 mmol/L 135 - 145 mmol/L [facility] Urea nitrogen [Mass/Vol] 14 mg/dL 7 - 25 mg/dL [facility] Urea nitrogen/Creatinine [Mass ratio] 17 mg/mg [facility] IMMUNOGLOBULINS IGG IGA IGMO rdered By: Sonia Rosales on 04-14-2023 IgA [Mass/Vol] 60 mg/dL Low 90 - 410 mg/dL [facility] IgG [Mass/Vol] 797 mg/dL 600 - 1560 mg/dL [facility] IgM [Mass/Vol] mg/dL Low 30 - 360 mg/dL [facility] Interpretation and review of laboratory results Abnormal [facility] SPE SERUM TOTAL PROTEINon Interpretation and review of laboratory results Abnormal [facility] Protein [Mass/Vol] 6.2 g/dL Low 6.4 - 8.3 g/dL [facility] Blood type and Indirect anti body screen panel (Bld)on 03-02-2023 ABO group Nom (Bld) AB Normal [facility] Comment on above: Performed By: #### 3 4532-2 ####[address] [address] Rh Type Positive Normal [facility] Comment on above: Performed By: #### 3 4532-2 ####[address] [address] Basic metabolic 2000 panelon 02-12-2023 Anion gap [Moles/Vol] 8 mmol/L Normal 6-18 [facility] Comment on above: Performed By: #### 2 4321-2 ####[address] [address] Calcium [Mass/Vol] 9.1 mg/dL Normal 8.9-10.3 [facility] Comment on above: Performed By: #### 2 4321-2 ####[address] [address] Chloride [Moles/Vol] 99 mmol/L Normal 98-107 [facility] Comment on above: Performed By: #### 2 4321-2 ####[address] [address] CO2 [Moles/Vol] 30 mmol/L Normal 22-32 [facility] Comment on above: Performed By: #### 2 4321-2 ####[address] [address] Creatinine [Mass/Vol] 0.65 mg/dL Normal 0.60-1.30 [facility] Comment on above: Performed By: #### 2 4321-2 ####[address] [place] [address] GFR/1.73 sq M.predicted among non-blacks MDRD (S/P/Bld) [Vol rate/Area] 105 mL/min/{1.73_m2} Normal >=60 [facility] Comment on above: Result Comment: Effjanet ctive July 05, 2022, calculation based on the?Chronic Kidney Disease Epidemiology Collaboration (CKD-EPI) equation refit?without adjustment for race. Performed By: #### 2 4321-2 ####[address] [address] Glucose [Mass/Vol] 97 mg/dL Normal 70-99 [facility] Comment on above: Performed By: #### 2 4321-2 ####[address] [address] Potassium [Moles/Vol] 3.7 mmol/L Normal 3.6-5.1 [facility] Comment on above: Performed By: #### 2 4321-2 ####[address] [address] Sodium [Moles/Vol] 137 mmol/L Normal 136-145 [facility] Comment on above: Performed By: #### 2 4321-2 ####[address] [address] Urea nitrogen [Mass/Vol] 12 mg/dL Normal 8-20 [facility] Comment on above: Performed By: #### 2 4321-2 ####[address] [address] Urea nitrogen/Creatinine [Mass ratio] 18.5 mg/mg Normal 12.0-20.0 [facility] Comment on above: Performed By: #### 2 4321-2 ####[facility] [id number] [place] [address] IR INSERT TUNNELED CVAD W MADRIGAL BQ [...] internal jugular vein was accessed with a 5-Salvadorean micropuncture set with live sonographic visualization of [...] Self Edit Transcribed Date: 02/18/2023 09:18 Normal [facility] PT Coag (PPP) [Time]on 02-12 INR Coag (PPP) [Relative time] 1.0 {INR} Normal <=5.0 [facility] Comment on above: Order Comment: The r ecommended therapeutic INR range for most cardiac indications is 2.0-3.0For high intensity therapy (i.e. mechanical heart valves), the recommended range is 2.5-3.5 Performed By: #### 5 902-2 ####[address] [address] Platelet # Bldon 02-12-2023 Platelets (Bld) [#/Vol] 296 10*3/uL Normal 142-424 [facility] Comment on above: Performed By: #### 2 6515-7 ####[address] [address] Platelets (Bld) [#/Vol]on Platelet mean volume (Bld) [Entitic vol] 8.8 fL Normal 6.2-12.1 [facility] Comment on above: Performed By: #### 2 6515-7 ####[address] [address] Prothrombin timeon 3 PT Coag (PPP) [Time] 13.4 s Normal 11.9-14.7 [facility] Comment on above: Order Comment: The r ecommended therapeutic INR range for most cardiac indications is 2.0-3.0For high intensity therapy (i.e. mechanical heart valves), the recommended range is 2.5-3.5 Performed By: #### 5 902-2 ####[address] [address] [address] BX AND ASP BONE MARROWon 01-29-2023 CT BX AND ASP BONE MARROW EXAM: CT guided bone marrow biopsy and aspiration INDICATION: Multiple myeloma IR ATTENDING: Nia Knight MD SEDATION/ANESTHESIA: Level of sedation/anesthesia: Moderate sedation [...] the marrow cavity was accessed with a SilkStart bone marrow biopsy drill. Marrow aspirate and 11-gauge core biopsy samples were obtained. The needle was removed and hemostasis was achieved with manual compression. The patient tolerated the procedure well. IMPRESSION: Successful CT guided bone marrow biopsy and aspiration. -------- FINAL REPORT -------- Dictated By: Nia Knight Dictated Date: 01/29/2023 17:01 Assigned Physician: Nia Knight Reviewed and Electronically Signed By: Nia Knight Signed Date: 01/29/2023 17:02 Workstation ID: [id number] Transcribed By: Self Edit Transcribed Date: 01/29/2023 17:01 Normal [facility] CT Bx and Asp Bone Marrowon 01-29-[address] guided bone marrow biopsy and aspiration. -------- FINAL REPORT -------- Dictated By: Nia Knight Dictated Date: 01/29/2023 17:01 Assigned Physician: Nia Knight Reviewed and Electronically Signed By: Nia Knight Signed Date: 01/29/2023 17:02 Workstation ID: [id number] Transcribed By: Self Edit Transcribed Date: 01/29/2023 17:01 ROGER EXAM: CT guided bone marrow biopsy and aspiration INDICATION: Multiple myeloma IR ATTENDING: Nia Knight MD SEDATION/ANESTHESIA: Level of sedation/anesthesia: Moderate sedation [...] the marrow cavity was accessed with a SilkStart bone marrow biopsy drill. Marrow aspirate and 11-gauge core biopsy samples were obtained. The needle was removed and hemostasis was achieved with manual compression. The patient tolerated the procedure well. Nia Ashraf MD - 01/29/2023 EXAM: CT guided bone marrow biopsy and aspiration INDICATION: Multiple myeloma IR ATTENDING: Nia Knight MD SEDATION/ANESTHESIA: Level of sedation/anesthesia: Moderate sedation [...] the marrow cavity was accessed with a SilkStart bone marrow biopsy drill. Marrow aspirate and 11-gauge core biopsy samples were obtained. The needle was removed and hemostasis was achieved with manual compression. The patient tolerated the procedure well. IMPRESSION: Successful CT guided bone marrow biopsy and aspiration. -------- FINAL REPORT -------- Dictated By: Nia Knight Dictated Date: 01/29/2023 17:01 Assigned Physician: Nia Knight Reviewed and Electronically Signed By: Nia Knight Signed Date: 01/29/2023 17:02 Workstation ID: [id number] Transcribed By: Self Edit Transcribed Date: 01/29/2023 17:01 [facility] Radiology Study observation (narrative) [facility] Chr analysis panel FISH (Bld /Tiss)on 01-29-2023 FISH SEE BELOW Normal [facility] Comment on above: Result Comment: Daniella spring See Chromosome Report for FISH Results. Performed By: #### 6 2367-8 ####[id number] [place] [address] Specify probe(s) or profile(s) from [employer] N/A Normal [facility] Comment on above: Performed By: #### 6 2367-8 ####[id number] [place] [address] Karyotyp Bld/Ton 01-29-2023 Additional Information: N/A Normal [facility] Comment on above: Performed By: #### 2 9770-5 ####[id number] [place] [address] Performed By: #### 6 2367-8 ####[id number] [place] [address] Clinical Information N/A Normal [facility] Comment on above: Performed By: #### 2 9770-5 ####[id number] [place] [address] Performed By: #### 6 2367-8 ####[id number] [place] [address] Specimen Type: MARROW Normal [facility] Comment on above: Performed By: #### 2 9770-5 ####[id number] [place] [address] Performed By: #### 6 2367-8 ####[id number] [place] [address] Therapy Information: N/A Normal [facility] Comment on above: Performed By: #### 2 9770-5 ####[id number] [place] [address] Performed By: #### 6 2367-8 ####[id number] [place] [address] Karyotype Nom (Bld/Tiss)on 01-29-2023 Cytogenetics, Neoplastic -B/BM SEE BELOW Normal [facility] Comment on above: Result Comment: Copy -To-Locations [facility] CLINICAL INFORMATION SPECIMEN TYPE: Bone Marrow Aspirate CLINICAL HISTORY: Myeloma, Plasmacytoma CYTOGENETICS LAB NUMBER: [id number] PREVIOUS CASE: None Known TESTS ORDERED Chromosome Analysis, Myeloma Profile [Interphase FISH] INTERPRETATION OVERALL INTERPRETATION Chromosome Analysis Normal Karyotype. No consistent numerical or structural chromosome abnormalities were observed. Myeloma Profile [Interphase FISH] Negative for loss of TP53, gain/amplification of 1q, del(1p), -13/del(13q), IGH rearrangements, +5, +9, +11, +15. Fluorescence in situ hybridization (FISH) was performed with [employer] probes for chromosomes 1 (CDKN2C, CKS1B), 5 ([id number]/X0Q4928), 9 (NR4A3), 11 (D11Z1), 13 (DLEU1, LAMP1), [...] FISH analysis is performed digitally using the [employer] imaging platform. The background rates for plasma [...] analytical performance characteristics have been determined by [facility]. It has not been cleared or approved by the U.S. Food and Drug Administration. The FDA has determined that such clearance or approval is not necessary. This assay has been validated pursuant to the CLIA regulations and is used for clinical purposes. SIGNATURE Director, Cytogenetics: Alberto Wilder, Ph.D. Electronic Signature: 23 FEB 2023 10:29 AM RESULTS ISCN RESULTS 46,XY[20] nuc gurinder 1p32(RTUT6Oa7),1q21(NRP4Hp1),5p15(L9I1045F/F7P3351c4),9q22(NR 4A3x2),11ce n(E63M0p6), 13q14.2(BRHZ1m6),13q34(OKIT6p1),14q32.3(IGHx2),15q22.3(SMAD6x 2),17p13.1( TP53x2),17q11.2(NF1x2)[200] CULTURES CULTURES: 24 and 48 hour unstimulated. CELLS EXAMINED: 1220 BANDING/STAINING TECHNIQUE(S): G-BANDING, FISH CELLS ANALYZED: 20 BAND RESOLUTION: 400 CELLS KARYOTYPED: 2 KARYOTYPES 46,XY CYTOGENETICS LAB NUMBER: [id number] FISH IMAGES Myeloma Profile Microscopic image is a symbolic representation of the betancourt findings of your specific report. The image is not intended to replace a complete review and reading of the final diagnostic report. CPT CODES 52745, 77782e1, 98281, 42082a55 The CPT codes provided are for information purposes only, and are based on AMA guidelines without regard to specific payor requirements. END OF REPORT FINAL REPORT-ACC FINAL [facility],[address] [place] [address]. [phone]. [phone]. House Principal: Chris Conteh [id number], [id number] Performed By: #### 2 9770-5 ####[id number] [place] [address] FISH Needed Upfront N/A Normal [facility] Comment on above: Performed By: #### 2 9770-5 ####[id number] [place] [address] Quantity and Container Type: N/A Normal [facility] Comment on above: Performed By: #### 2 9770-5 ####[id number] [place] [address] Reflex To FISH As Necessary N/A Normal [facility] Comment on above: Performed By: #### 2 9770-5 ####[id number] [place] [address] LEUKEMIA, LYMPHOMA EVALUATIO N BY FLOW CYTOMETRYon 01-29-2023 Pathologist Interpretation Flow Cytometry Normal [facility] Comment on above: Result Comment: Spec imen Source: Bone marrow aspirate. Clinical Information: Plasmacytoma. Panel: Flow cytometric analysis was performed using the following markers: CD3, CD5, CD10, CD11c, CD19, CD20, CD23, CD38, CD45, kappa, lambda, CD56, lzNN38o, cytoplasmic kappa, cytoplasmic lambda. INTERPRETATION Bone marrow [...] chain restriction. Correlation with bone marrow specimen [id number] is recommended for further evaluation. Interpreted by Sherry Alas M.D. ~\\R\\~ The technical component of this test [place] [address]. The professional interpretation was performed at [facility]. The test was developed and its performance characteristics determined by [employer]. It has not been cleared by the U.S. Food and Drug Administration. We are required to make this disclaimer although the FDA has determined that such clearance is not necessary. This test is used for clinical purposes and is not to be considered investigational or for research. CPT code 61566 Performed By: #### L [id number] ####EXTERNAL LAB (NON-INTERFACED) Microscopic Mar-Impon 2022 Microscopic [...] studies will be performed for further evaluation. 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 A. Bone Marrow Aspirate, Bone Marrow Clot: Received in formalin labeled with patient name and " marrow clot" is a 1 cm aggregate of dark red clotted blood entirely submitted in block A1. Also received are 10 aspirate smears. ([facility]) B. Bone Marrow Biopsy, Bone Marrow Core Biopsy: Received in formalin labeled with patient name and " bone marrow core biopsy" is a 0.5 cm fragment of friable ware bone entirely submitted decalcification in block B1. ([facility]) C. Blood, Venous, PERIPHERAL BLOOD SMEAR SLIDE: [...] with predominantly unremarkable morphology. Granulocytes: Adequate with patent lawyer progression to mature forms. Blasts are not [...] aggregate is comprised mostly of T cells. [place]-restricted plasma cell population with aberrant CD56 expression is detected. There is no immunophenotypic evidence of an abnormal B-cell or blast population. Any immunohistochemistry or special stain used in the interpretation of this case was performed at [facility]. These tests have not been [...] was performed at [facility], [address] [place] [address]. Microscopic examination was performed. Normal [facility] Comment on above: Performed By: #### 5 7764-3 #### [facility] [address] [place] [address] [facility] [address] [place] [address] Microscopic exam Cytology (B M) [Interp]on 01-29-2023 AP MISCELLANEOUS TEST See Scanned Result Normal [facility] Comment on above: Performed By: #### 5 7764-3 #### [facility] [address] [place] [address] [facility] [address] [place] [address] PT Coag (PPP) [Time]on 01-29 INR Coag (PPP) [Relative time] 1.0 {INR} Normal <=5.0 [facility] Comment on above: Order Comment: The r ecommended therapeutic INR range for most cardiac indications is 2.0-3.0For high intensity therapy (i.e. mechanical heart valves), the recommended range is 2.5-3.5 Performed By: #### 5 902-2 ####[facility] [id number] [place] [address] INR Coag (PPP) [Relative time] 1.0 {INR} NINF - 5.0 [facility] Interpretation and review of laboratory results Normal [facility] PT Coag (Bld) [Time] 13.6 s [facility] The recommended therapeutic INR range for most cardiac indications is 2.0-3.0 For high intensity therapy (i.e. mechanical heart valves), the recommended range is 2.5-3.5 [facility] Platelet # Bldon 01-29-2023 Platelets (Bld) [#/Vol] 325 10*3/uL Normal 142-424 [facility] Comment on above: Performed By: #### 2 6515-7 ####[facility] [id number] [place] [address] Platelet countOrdered By: Julio C Mcdaniels on 01-29-2023 Platelets (Bld) [#/Vol] 325 10*3/uL [facility] Platelets (Bld) [#/Vol]Order ed By: Hyacinth Mcdaniels on 01-29-2023 Interpretation and review of laboratory results Normal [facility] Platelet mean volume (Bld) [Entitic vol] 8.6 fL [facility] Platelets (Bld) [#/Vol]on Platelet mean volume (Bld) [Entitic vol] 8.6 fL Normal 6.2-12.1 [facility] Comment on above: Performed By: #### 2 6515-7 ####[facility] [id number] [place] [address] Prothrombin timeon PT Coag (PPP) [Time] 13.6 s Normal 11.9-14.7 [facility] Comment on above: Order Comment: The r ecommended therapeutic INR range for most cardiac indications is 2.0-3.0For high intensity therapy (i.e. mechanical heart valves), the recommended range is 2.5-3.5 Performed By: #### 5 902-2 ####[facility] [id number] [place] [address] Laboratory - Chemistry and C hemistry - challengeon 01-05-2023 Cryoglobulin Immune diff Ql (S) T SPINE [facility] Rad Onc Aria Session Summary on 01-05-2023 Albumin given [Vol] 4 Gy Janell [facility] Amikacin (Dose) [Mass] 4 Gy [facility] Appe[facility] (Unsp spec) Palliative [facility] Appearance (Unsp spec) 7 Tr [facility] Health date [Date/time] 01/05/2023 Tr [facility] Health date [Date/time] 20 Gy Tr [facility] Health date [Date/time] 5 Tr [facility] Health Cell Fractions/Differential (Bld) [Interp] 5 [facility] Collection start date (U) 11/30/2022 [facility] Cryoglobulin Immune diff Ql (S) C1 [facility] [place] Pollen IgE Qn (S) 12/29/2022 [facility] Plan Name [facility] Tetrahydrocortisone (Dose) [Mass] 2000 cGy [facility] Laboratory - Chemistry and C hemistry - challengeon 01-04-2023 Cryoglobulin Immune diff Ql (S) T [facility] Rad Onc Aria Session Summary on 01-04-2023 Albumin given [Vol] 4 Gy Janell [facility] Amikacin (Dose) [Mass] 4 Gy [facility] Appearance (Unsp spec) Palliative [facility] Appearance (Unsp spec) 6 Tr [facility] Health date [Date/time] 01/04/2023 Tr [facility] Health date [Date/time] 16 Gy Tr [facility] Health date [Date/time] 4 Tr [facility] Health Cell Fractions/Differential (Bld) [Interp] 5 [facility] Collection start date (U) 11/30/2022 [facility] Cryoglobulin Immune diff Ql (S) C1 [facility] [place] Pollen IgE Qn (S) 12/29/2022 [facility] Plan Name [facility] Tetrahydrocortisone (Dose) [Mass] 2000 cGy [facility] Laboratory - Chemistry and C hemistry - challengeon 12-31-2022 Cryoglobulin Immune diff Ql (S) T SPINE [facility] Rad Onc Aria Session Summary on 12-31-2022 Albumin given [Vol] 4 Gy [facility] Amikacin (Dose) [Mass] 4 Gy Tr [facility] Appe[facility]Unsp spec[facility] 2 Tr [facility] Health date [Date/time] 12/31/2022 [facility] date [Date/time] 8 [facility] date [Date[facility]time[facility] Cell Fractions/Differential (Bld) [Interp] 5 [facility] Collection start date (U) 11/30/2022 [facility] Cryoglobulin Immune diff Ql (S) C1 [facility] Date [place] Pollen IgE Qn (S) 12/29/2022 [facility] Plan Name T SPINE [facility] Tetrahydrocortisone (Dose) [Mass] 2000 cGy [facility] Basic metabolic 2000 panelon 12-18-2022 Anion gap [Moles/Vol] 7 mmol/L Normal 6-18 [facility] Comment on above: Performed By: #### 5 9032-3 #### [facility] [address] [place] [address] Calcium [Mass/Vol] 8.3 mg/dL Low 8.9-10.3 [facility] Comment on above: Performed By: #### 5 9032-3 #### [facility] [address] [place] [address] Chloride [Moles/Vol] 98 mmol/L Normal 98-107 [facility] Comment on above: Performed By: #### 5 9032-3 #### [facility] [address] [place] [address] CO2 [Moles/Vol] 28 mmol/L Normal 22-32 [facility] Comment on above: Performed By: #### 5 9032-3 #### [facility] [address] [place] [address] Creatinine [Mass/Vol] 0.39 mg/dL Low 0.60-1.30 [facility] Comment on above: Performed By: #### 5 9032-3 #### [facility] [place] [address] GFR/1.73 sq M.predicted among non-blacks MDRD (S/P/Bld) [Vol rate/Area] 122 mL/min/{1.73_m2} Normal >=60 [facility] Comment on above: Result Comment: Effe ctive July 05, 2022, calculation based on the?Chronic Kidney Disease Epidemiology Collaboration (CKD-EPI) equation refit?without adjustment for race. Performed By: #### 5 9032-3 #### [facility] [address] [place] [address] Glucose [Mass/Vol] 104 mg/dL High 70-99 [facility] Comment on above: Performed By: #### 5 9032-3 #### [facility] [address] [place] [address] Potassium [Moles/Vol] 3.7 mmol/L Normal 3.6-5.1 [facility] Comment on above: Performed By: #### 5 9032-3 #### [facility] [address] [place] [address] Sodium [Moles/Vol] 133 mmol/L Low 136-145 [facility] Comment on above: Performed By: #### 5 9032-3 #### [facility] [address] [place] [address] Urea nitrogen [Mass/Vol] 12 mg/dL Normal 8-20 [facility] Comment on above: Performed By: #### 5 9032-3 #### [facility] [address] [place] [address] Urea nitrogen/Creatinine [Mass ratio] 30.8 mg/mg High 12.0-20.0 [facility] Comment on above: Performed By: #### 5 9032-3 #### [facility] [address] [place] [address] Anion gap [Moles/Vol] 7 mmol/L 6 - 18 [facility] Calcium [Mass/Vol] 8.3 mg/dL Low 8.9 - 10. 3 mg/dL [facility] Chloride [Moles/Vol] 98 mmol/L 98 - 10 7 mmol/L [facility] CO2 [Moles/Vol] 28 mmol/L 22 - 32 mmol/L [facility] Creatinine [Mass/Vol] 0.39 mg/dL Low 0.60 - 1.30 mg/dL [facility] GFR/1.73 sq M.predicted among non-blacks MDRD (S/P/Bld) [Vol rate/Area] 122 mL/min/{1.73_m2} - PINF [facility] Comment on above: Effective July 05, 2022, calculation based on the Chronic Kidney Disease Epidemiology Collaboration (CKD-EPI) equation refit without adjustment for race. Glucose [Mass/Vol] 104 mg/dL High 70 - 99 mg/dL [facility] Interpretation and review of laboratory results Abnormal [facility] Potassium [Moles/Vol] 3.7 mmol/L 3.6 - 5.1 mmol/L [facility] Sodium [Moles/Vol] 133 mmol/L Low 136 - 145 mmol/L [facility] Urea nitrogen [Mass/Vol] 12 mg/dL 8 - 20 mg/dL [facility] Urea nitrogen/Creatinine [Mass ratio] 30.8 mg/mg High 12.0 - 20.0 [facility] Hemogram and platelets WO di fferential panel (Bld)on 12-18-2022 Basophils (Bld) [#/Vol] 0.06 10*3/uL Normal 0.00-0.20 [facility] Comment on above: Performed By: #### 5 9032-3 #### [facility] [address] [place] [address] Basophils/100 WBC (Bld) 0.8 % Normal 0.0-2.0 [facility] Comment on above: Performed By: #### 5 9032-3 #### [facility] [address] [place] [address] Eosinophils (Bld) [#/Vol] 0.25 10*3/uL Normal 0.00-0.70 [facility] Comment on above: Performed By: #### 5 9032-3 #### [facility] [address] [place] [address] Eosinophils/100 WBC (Bld) 3.2 % Normal 0.0-7.0 [facility] Comment on above: Performed By: #### 5 9032-3 #### [facility] [address] [place] [address] Erythrocyte distribution width (RBC) [Ratio] 14.7 % Normal 11.0-14.8 [facility] Comment on above: Performed By: #### 5 9032-3 #### [facility] [address] [place] [address] Hematocrit (Bld) [Volume fraction] 28.7 % Low 39.0-49.0 [facility] Comment on above: Performed By: #### 5 9032-3 #### [facility] [address] [place] [address] Hemoglobin (Bld) [Mass/Vol] 8.9 g/dL Low 13.5-17.5 [facility] Comment on above: Performed By: #### 5 9032-3 #### [facility] [address] [place] [address] Immature granulocytes (Bld) [#/Vol] 0.16 10*3/uL High 0.00-0.10 [facility] Comment on above: Performed By: #### 5 9032-3 #### [facility] [address] [place] [address] Immature granulocytes/100 WBC (Bld) 2.0 % High 0.0-1.2 [facility] Comment on above: Performed By: #### 5 9032-3 #### [facility] [address] [place] [address] Lymphocytes (Bld) [#/Vol] 1.54 10*3/uL Normal 1.00-4.80 [facility] Comment on above: Performed By: #### 5 9032-3 #### [facility] [address] [place] [address] Lymphocytes/100 WBC (Bld) 19.7 % Normal 17.9-49.6 [facility] Comment on above: Performed By: #### 5 9032-3 #### [facility] [address] [place] [address] MCH 28.1 pcg Normal 27.0-34.0 [facility] Comment on above: Performed By: #### 5 9032-3 #### [facility] [address] [place] [address] MCHC (RBC) [Mass/Vol] 31.0 g/dL Normal 30.8-35.3 [facility] Comment on above: Performed By: #### 5 9032-3 #### [facility] [address] [place] [address] MCV (RBC) [Entitic vol] 90.5 fL Normal 80.0-97.0 [facility] Comment on above: Performed By: #### 5 9032-3 #### [facility] [address] [place] [address] Monocytes (Bld) [#/Vol] 0.65 10*3/uL Normal 0.00-0.90 [facility] Comment on above: Performed By: #### 5 9032-3 #### [facility] [address] [place] [address] Monocytes/100 WBC (Bld) 8.3 % Normal 4.0-23.0 [facility] Comment on above: Performed By: #### 5 9032-3 #### [facility] [address] [place] [address] Neutrophils Absolute 5.15 K/mcL Normal 1.80-7.70 [facility] Comment on above: Performed By: #### 5 9032-3 #### [facility] [address] [place] [address] Neutrophils/100 WBC (Bld) 66.0 % Normal 38.1-75.5 [facility] Comment on above: Performed By: #### 5 9032-3 #### [facility] [address] [place] [address] Platelet mean volume (Bld) [Entitic vol] 9.0 fL Normal 6.2-12.1 [facility] Comment on above: Performed By: #### 5 9032-3 #### [facility] [address] [place] [address] Platelets (Bld) [#/Vol] 317 10*3/uL Normal 142-424 [facility] Comment on above: Performed By: #### 5 9032-3 #### [facility] [address] [place] [address] RBC (Bld) [#/Vol] 3.17 10*6/uL Low 4.30-5.70 [facility] Comment on above: Performed By: #### 5 9032-3 #### [facility] [address] [place] [address] WBC (Bld) [#/Vol] 7.8 10*3/uL Normal 4.6-10.2 [facility] Comment on above: Performed By: #### 5 9032-3 #### [facility] [address] [place] [address] Basophils (Bld) [#/Vol] 0.06 10*3/uL [facility] RBC (Bld) [#/Vol] 3.17 10*6/uL Low [facility] WBC (Bld) [#/Vol] 7.8 10*3/uL [facility] Basic metabolic 2000 panelon 12-17-2022 Anion gap [Moles/Vol] 9 mmol/L Normal 6-18 [facility] Comment on above: Performed By: #### 2 4317-0 #### [facility] [address] [place] [address] Calcium [Mass/Vol] 8.5 mg/dL Low 8.9-10.3 [facility] Comment on above: Performed By: #### 2 4317-0 #### [facility] [address] [place] [address] Chloride [Moles/Vol] 96 mmol/L Low 98-107 [facility] Comment on above: Performed By: #### 2 4317-0 #### [facility] [address] [place] [address] CO2 [Moles/Vol] 29 mmol/L Normal 22-32 [facility] Comment on above: Performed By: #### 2 4317-0 #### [facility] [address] [place] [address] Creatinine [Mass/Vol] 0.43 mg/dL Low 0.60-1.30 [facility] Comment on above: Performed By: #### 2 4317-0 #### [facility] [address] [place] [address] GFR/1.73 sq M.predicted among non-blacks MDRD (S/P/Bld) [Vol rate/Area] 118 mL/min/{1.73_m2} Normal >=60 [facility] Comment on above: Result Comment: Effe ctive July 05, 2022, calculation based on the?Chronic Kidney Disease Epidemiology Collaboration (CKD-EPI) equation refit?without adjustment for race. Performed By: #### 2 4317-0 #### [facility] [address] [place] [address] Glucose [Mass/Vol] 144 mg/dL High 70-99 [facility] Comment on above: Performed By: #### 2 4317-0 #### [facility] [place] [address] Potassium [Moles/Vol] 3.8 mmol/L Normal 3.6-5.1 [facility] Comment on above: Performed By: #### 2 4317-0 #### [facility] [address] [place] [address] Sodium [Moles/Vol] 134 mmol/L Low 136-145 [facility] Comment on above: Performed By: #### 2 4317-0 #### [facility] [address] [place] [address] Urea nitrogen [Mass/Vol] 15 mg/dL Normal 8-20 [facility] Comment on above: Performed By: #### 2 4317-0 #### [facility] [place] [address] Urea nitrogen/Creatinine [Mass ratio] 34.9 mg/mg High 12.0-20.0 [facility] Comment on above: Performed By: #### 2 4317-0 #### [facility] [address] [place] [address] Anion gap [Moles/Vol] 9 mmol/L 6 - 18 [facility] Calcium [Mass/Vol] 8.5 mg/dL Low 8.9 - 10. 3 mg/dL [facility] Chloride [Moles/Vol] 96 mmol/L Low 98 - 10 7 mmol/L [facility] CO2 [Moles/Vol] 29 mmol/L 22 - 32 mmol/L [facility] Creatinine [Mass/Vol] 0.43 mg/dL Low 0.60 - 1.30 mg/dL [facility] GFR/1.73 sq M.predicted among non-blacks MDRD (S/P/Bld) [Vol rate/Area] 118 mL/min/{1.73_m2} - PINF [facility] Comment on above: Effective July 05, 2022, calculation based on the Chronic Kidney Disease Epidemiology Collaboration (CKD-EPI) equation refit without adjustment for race. Glucose [Mass/Vol] 144 mg/dL High 70 - 99 mg/dL [facility] Interpretation and review of laboratory results Abnormal [facility] Potassium [Moles/Vol] 3.8 mmol/L 3.6 - 5.1 mmol/L [facility] Sodium [Moles/Vol] 134 mmol/L Low 136 - 145 mmol/L [facility] Urea nitrogen [Mass/Vol] 15 mg/dL 8 - 20 mg/dL [facility] Urea nitrogen/Creatinine [Mass ratio] 34.9 mg/mg High 12.0 - 20.0 [facility] Hemogram and platelets WO di fferential panel (Bld)on 12-17-2022 Basophils (Bld) [#/Vol] 0.05 10*3/uL Normal 0.00-0.20 [facility] Comment on above: Performed By: #### 2 4317-0 #### [facility] [place] [address] Basophils/100 WBC (Bld) 0.7 % Normal 0.0-2.0 [facility] Comment on above: Performed By: #### 2 4317-0 #### [facility] [place] [address] Eosinophils (Bld) [#/Vol] 0.08 10*3/uL Normal 0.00-0.70 [facility] Comment on above: Performed By: #### 2 4317-0 #### [facility] [address] [place] [address] Eosinophils/100 WBC (Bld) 1.1 % Normal 0.0-7.0 [facility] Comment on above: Performed By: #### 2 4317-0 #### [facility] [address] [place] [address] Erythrocyte distribution width (RBC) [Ratio] 14.6 % Normal 11.0-14.8 [facility] Comment on above: Performed By: #### 2 4317-0 #### [facility] [address] [place] [address] Hematocrit (Bld) [Volume fraction] 33.4 % Low 39.0-49.0 [facility] Comment on above: Performed By: #### 2 4317-0 #### [facility] [address] [place] [address] Hemoglobin (Bld) [Mass/Vol] 10.4 g/dL Low 13.5-17.5 [facility] Comment on above: Performed By: #### 2 4317-0 #### [facility] [address] [place] [address] Immature granulocytes (Bld) [#/Vol] 0.10 10*3/uL Normal 0.00-0.10 [facility] Comment on above: Performed By: #### 2 4317-0 #### [facility] [address] [place] [address] Immature granulocytes/100 WBC (Bld) 1.3 % High 0.0-1.2 [facility] Comment on above: Performed By: #### 2 4317-0 #### [facility] [address] [place] [address] Lymphocytes (Bld) [#/Vol] 0.95 10*3/uL Low 1.00-4.80 [facility] Comment on above: Performed By: #### 2 4317-0 #### [facility] [address] [place] [address] Lymphocytes/100 WBC (Bld) 12.6 % Low 17.9-49.6 [facility] Comment on above: Performed By: #### 2 4317-0 #### [facility] [address] [place] [address] MCH 28.3 pcg Normal 27.0-34.0 [facility] Comment on above: Performed By: #### 2 4317-0 #### [facility] [address] [place] [address] MCHC (RBC) [Mass/Vol] 31.1 g/dL Normal 30.8-35.3 [facility] Comment on above: Performed By: #### 2 4317-0 #### [facility] [address] [place] [address] MCV (RBC) [Entitic vol] 90.8 fL Normal 80.0-97.0 [facility] Comment on above: Performed By: #### 2 4317-0 #### [facility] [address] [place] [address] Monocytes (Bld) [#/Vol] 0.58 10*3/uL Normal 0.00-0.90 [facility] Comment on above: Performed By: #### 2 4317-0 #### [facility] [address] [place] [address] Monocytes/100 WBC (Bld) 7.7 % Normal 4.0-23.0 [facility] Comment on above: Performed By: #### 2 4317-0 #### [facility] [address] [place] [address] Neutrophils Absolute 5.77 K/mcL Normal 1.80-7.70 [facility] Comment on above: Performed By: #### 2 4317-0 #### [facility] [address] [place] [address] Neutrophils/100 WBC (Bld) 76.6 % High 38.1-75.5 [facility] Comment on above: Performed By: #### 2 4317-0 #### [facility] [address] [place] [address] Platelet mean volume (Bld) [Entitic vol] 8.9 fL Normal 6.2-12.1 [facility] Comment on above: Performed By: #### 2 4317-0 #### [facility] [address] [place] [address] Platelets (Bld) [#/Vol] 357 10*3/uL Normal 142-424 [facility] Comment on above: Performed By: #### 2 4317-0 #### [facility] [address] [place] [address] RBC (Bld) [#/Vol] 3.68 10*6/uL Low 4.30-5.70 [facility] Comment on above: Performed By: #### 2 4317-0 #### [facility] [address] [place] [address] WBC (Bld) [#/Vol] 7.5 10*3/uL Normal 4.6-10.2 [facility] Comment on above: Performed By: #### 2 4317-0 #### [facility] [address] [place] [address] Basophils (Bld) [#/Vol] 0.05 10*3/uL [facility] Immature granulocytes (Bld) [#/Vol] 0.10 10*3/uL [facility] Immature granulocytes/100 WBC (Bld) 1.3 % High 0.0 - 1.2 % [facility] Interpretation and review of laboratory results Abnormal [facility] Lymphocytes (Bld) [#/Vol] 0.95 10*3/uL Low [facility] Lymphocytes/100 WBC (Bld) 12.6 % Low 17.9 - 49.6 % [facility] MCH (RBC) [Entitic mass] 28.3 pg [facility] MCHC (RBC) [Mass/Vol] 31.1 g/dL 30.8 - 35.3 g/dL [facility] MCV (RBC) [Entitic vol] 90.8 fL T [facility] Monocytes (Bld) [#/Vol] 0.58 10*3/uL [facility] Monocytes/100 WBC (Bld) 7.7 % 4.0 - 23.0 % [facility] Neutrophils (Bld) [#/Vol] 5.77 10*3/uL [facility] Neutrophils/100 WBC (Bld) 76.6 % High 38.1 - 75.5 % [facility] Platelet mean volume (Bld) [Entitic vol] 8.9 fL [facility] Platelets (Bld) [#/Vol] 357 10*3/uL [facility] RBC (Bld) [#/Vol] 3.68 10*6/uL Low [facility] WBC (Bld) [#/Vol] 7.5 10*3/uL [facility] SARS-CoV-2 (COVID-19) RNA NA A+probe Ql (Resp)on 12-17-2022 Interpretation and review of laboratory results Normal [facility] SARS-CoV-2 (COVID-19) RdRp gene GARTH+probe Ql (Resp) Not detected Not Detected [facility] SARS-CoV-2 RNA Resp Ql GARTH+p robeon 12-17-2022 SARS-CoV-2 (COVID-19) RNA GARTH+probe Ql (Resp) Not detected Normal Not Detected [facility] Comment on above: Performed By: #### 2 4317-0 #### [facility] [place] [place] [facility] [address] [place] [address] Basic metabolic 2000 panelon 12-09-2022 Anion gap [Moles/Vol] 8 mmol/L Normal 6-18 [facility] Comment on above: Performed By: #### 2 4317-0 #### [facility] [address] [place] [address] Calcium [Mass/Vol] 8.2 mg/dL Low 8.9-10.3 [facility] Comment on above: Performed By: #### 2 4317-0 #### [facility] [address] [place] [address] Chloride [Moles/Vol] 101 mmol/L Normal 98-107 [facility] Comment on above: Performed By: #### 2 4317-0 #### [facility] [address] [place] [address] CO2 [Moles/Vol] 27 mmol/L Normal 22-32 [facility] Comment on above: Performed By: #### 2 4317-0 #### [facility] [address] [place] [address] Creatinine [Mass/Vol] 0.54 mg/dL Low 0.60-1.30 [facility] Comment on above: Performed By: #### 2 4317-0 #### [facility] [address] [place] [address] GFR/1.73 sq M.predicted among non-blacks MDRD (S/P/Bld) [Vol rate/Area] 111 mL/min/{1.73_m2} Normal >=60 [facility] Comment on above: Result Comment: Effe ctive July 05, 2022, calculation based on the?Chronic Kidney Disease Epidemiology Collaboration (CKD-EPI) equation refit?without adjustment for race. Performed By: #### 2 4317-0 #### [facility] [address] [place] [address] Glucose [Mass/Vol] 107 mg/dL High 70-99 [facility] Comment on above: Performed By: #### 2 4317-0 #### [facility] [address] [place] [address] Potassium [Moles/Vol] 3.9 mmol/L Normal 3.6-5.1 [facility] Comment on above: Performed By: #### 2 4317-0 #### [facility] [address] [place] [address] Sodium [Moles/Vol] 136 mmol/L Normal 136-145 [facility] [facility] Comment on above: Performed By: #### 2 4317-0 #### [facility] [address] [place] [address] Urea nitrogen [Mass/Vol] 17 mg/dL Normal 8-20 [facility] Comment on above: Performed By: #### 2 4317-0 #### [facility] [address] [place] [address] Urea nitrogen/Creatinine [Mass ratio] 31.5 mg/mg High 12.0-20.0 [facility] Comment on above: Performed By: #### 2 4317-0 #### [facility] [place] [address] Anion gap [Moles/Vol] 8 mmol/L 6 - 18 [facility] Calcium [Mass/Vol] 8.2 mg/dL Low 8.9 - 10. 3 mg/dL [place] [facility] Chloride [Moles/Vol] 101 mmol/L 98 - 10 7 mmol/L [facility] CO2 [Moles/Vol] 27 mmol/L 22 - 32 mmol/L [facility] Creatinine [Mass/Vol] 0.54 mg/dL Low 0.60 - 1.30 mg/dL [facility] GFR/1.73 sq M.predicted among non-blacks MDRD (S/P/Bld) [Vol rate/Area] 111 mL/min/{1.73_m2} - PINF [facility] Comment on above: Effective July 05, 2022, calculation based on the Chronic Kidney Disease Epidemiology Collaboration (CKD-EPI) equation refit without adjustment for race. Glucose [Mass/Vol] 107 mg/dL High 70 - 99 mg/dL [facility] Interpretation and review of laboratory results Abnormal [facility] Potassium [Moles/Vol] 3.9 mmol/L 3.6 - 5.1 mmol/L [facility] Sodium [Moles/Vol] 136 mmol/L 136 - 145 mmol/L [facility] Urea nitrogen [Mass/Vol] 17 mg/dL 8 - 20 mg/dL [facility] Urea nitrogen/Creatinine [Mass ratio] 31.5 mg/mg High 12.0 - 20.0 [facility] Hemogram and platelets WO di fferential panel (Bld)on 12-09-2022 Erythrocyte distribution width (RBC) [Ratio] 14.4 % Normal 11.0-14.8 [facility] Comment on above: Performed By: #### 2 4317-0 #### [facility] [address] [place] [address] Hematocrit (Bld) [Volume fraction] 32.7 % Low 39.0-49.0 [facility] Comment on above: Performed By: #### 2 4317-0 #### [facility] [address] [place] [address] Hemoglobin (Bld) [Mass/Vol] 10.2 g/dL Low 13.5-17.5 [facility] Comment on above: Performed By: #### 2 4317-0 #### [facility] [address] [place] [address] MCH 29.4 pcg Normal 27.0-34.0 [facility] Comment on above: Performed By: #### 2 4317-0 #### [facility] [address] [place] [address] MCHC (RBC) [Mass/Vol] 31.2 g/dL Normal 30.8-35.3 [facility] Comment on above: Performed By: #### 2 4317-0 #### [facility] [address] [place] [address] MCV (RBC) [Entitic vol] 94.2 fL Normal 80.0-97.0 [facility] Comment on above: Performed By: #### 2 4317-0 #### [facility] [address] [place] [address] Platelet mean volume (Bld) [Entitic vol] 8.9 fL Normal 6.2-12.1 [facility] Comment on above: Performed By: #### 2 4317-0 #### [facility] [address] [place] [address] Platelets (Bld) [#/Vol] 355 10*3/uL Normal 142-424 [facility] Comment on above: Performed By: #### 2 4317-0 #### [facility] [address] [place] [address] RBC (Bld) [#/Vol] 3.47 10*6/uL Low 4.30-5.70 [facility] Comment on above: Performed By: #### 2 4317-0 #### [facility] [address] [place] [address] WBC (Bld) [#/Vol] 7.7 10*3/uL Normal 4.6-10.2 [facility] Comment on above: Performed By: #### 2 4317-0 #### [facility] [address] [place] [address] Hemogram and platelets WO di fferential panel (Bld)Ordered By: Ken Ricardo on 12-09-2022 Erythrocyte distribution width (RBC) [Ratio] 14.4 % 11.0 - 14.8 % [facility] Hematocrit (Bld) [Volume fraction] 32.7 % Low 39.0 - 49.0 % [facility] Hemoglobin (Bld) [Mass/Vol] 10.2 g/dL Low 13.5 - 17.5 g/dL [facility] Interpretation and review of laboratory results Abnormal [facility] MCH (RBC) [Entitic mass] 29.4 pg [facility] MCHC (RBC) [Mass/Vol] 31.2 g/dL 30.8 - 35.3 g/dL [facility] MCV (RBC) [Entitic vol] 94.2 fL T [facility] Platelet mean volume (Bld) [Entitic vol] 8.9 fL [facility] Platelets (Bld) [#/Vol] 355 10*3/uL [facility] RBC (Bld) [#/Vol] 3.47 10*6/uL Low [facility] WBC (Bld) [#/Vol] 7.7 10*3[facility] XR ABDOMEN 1 VIEWon 12-10-19 23 XR ABDOMEN 1 VIEW EXAMINATION TYPE: XR [...] Edit Transcribed Date: 12/09/2022 12:43 Normal [facility] XR Abdomen Single viewon Constipation. -------- [...] Surgical clip in the right upper quadrant. POWERSCRIBE Pierre Bhat MD - 12/09/2022 EXAMINATION TYPE: XR ABDOMEN [...] By: Self Edit Transcribed Date: 12/09/2022 12:43 [facility] Radiology Study observation (narrative) [facility] XR Abdomen Single viewOrdere d By: Pierre Bhat on 12-09-2022 [employer] Work Phone: Basic metabolic 2000 panelon 12-08-2022 Anion gap [Moles/Vol] 6 mmol/L Normal 6-18 [facility] Comment on above: Performed By: #### 2 4317-0 #### [facility] [address] [place] [address] Calcium [Mass/Vol] 8.2 mg/dL Low 8.9-10.3 [facility] Comment on above: Performed By: #### 2 4317-0 #### [facility] [address] [place] [address] Chloride [Moles/Vol] 99 mmol/L Normal 98-107 [facility] Comment on above: Performed By: #### 2 4317-0 #### [facility] [address] [place] [address] CO2 [Moles/Vol] 30 mmol/L Normal 22-32 [facility] Comment on above: Performed By: #### 2 4317-0 #### [facility] [address] [place] [address] Creatinine [Mass/Vol] 0.55 mg/dL Low 0.60-1.30 [facility] Comment on above: Performed By: #### 2 4317-0 #### [facility] [address] [place] [address] GFR/1.73 sq M.predicted among non-blacks MDRD (S/P/Bld) [Vol rate/Area] 110 mL/min/{1.73_m2} Normal >=60 [facility] Comment on above: Result Comment: Effe ctive July 05, 2022, calculation based on the?Chronic Kidney Disease Epidemiology Collaboration (CKD-EPI) equation refit?without adjustment for race. Performed By: #### 2 4317-0 #### [facility] [address] [place] [address] Glucose [Mass/Vol] 109 mg/dL High 70-99 [facility] Comment on above: Performed By: #### 2 4317-0 #### [facility] [address] [place] [address] Potassium [Moles/Vol] 3.9 mmol/L Normal 3.6-5.1 [facility] Comment on above: Performed By: #### 2 4317-0 #### [facility] [address] [place] [address] Sodium [Moles/Vol] 135 mmol/L Low 136-145 [facility] Comment on above: Performed By: #### 2 4317-0 #### [facility] [address] [place] [address] Urea nitrogen [Mass/Vol] 14 mg/dL Normal 8-20 [facility] Comment on above: Performed By: #### 2 4317-0 #### [facility] [address] [place] [address] Urea nitrogen/Creatinine [Mass ratio] 25.5 mg/mg High 12.0-20.0 [facility] Comment on above: Performed By: #### 2 4317-0 #### [facility] [address] [place] [address] Anion gap [Moles/Vol] 6 mmol/L 6 - 18 [facility] Calcium [Mass/Vol] 8.2 mg/dL Low 8.9 - 10. 3 mg/dL [facility] Chloride [Moles/Vol] 99 mmol/L 98 - 10 7 mmol/L [facility] CO2 [Moles/Vol] 30 mmol/L 22 - 32 mmol/L [facility] Creatinine [Mass/Vol] 0.55 mg/dL Low 0.60 - 1.30 mg/dL [facility] GFR/1.73 sq M.predicted among non-blacks MDRD (S/P/Bld) [Vol rate/Area] 110 mL/min/{1.73_m2} - PINF [facility] Comment on above: Effective July 05, 2022, calculation based on the Chronic Kidney Disease Epidemiology Collaboration (CKD-EPI) equation refit without adjustment for race. Glucose [Mass/Vol] 109 mg/dL High 70 - 99 mg/dL [facility] Interpretation and review of laboratory results Abnormal [facility] Potassium [Moles/Vol] 3.9 mmol/L 3.6 - 5.1 mmol/L [facility] Sodium [Moles/Vol] 135 mmol/L Low 136 - 145 mmol/L [facility] Urea nitrogen [Mass/Vol] 14 mg/dL 8 - 20 mg/dL [facility] Urea nitrogen/Creatinine [Mass ratio] 25.5 mg/mg High 12.0 - 20.0 [facility] Bacteria identified Anaer cx Nom (Unsp spec)Ordered By: Angelita Lock on 12-07-2022 [facility] Bacteria identified Cx Nom ( Bld)on 12-07-2022 [facility] Basic metabolic 2000 panelon 12-07-2022 Anion gap [Moles/Vol] 7 mmol/L Normal 6-18 [facility] Comment on above: Performed By: #### 3 016-3 #### [facility] [place] [facility] [address] [place] [address] Calcium [Mass/Vol] 8.1 mg/dL Low 8.9-10.3 [facility] Comment on above: Performed By: #### 3 016-3 #### [facility] [place] [facility] [address] [place] [address] Chloride [Moles/Vol] 100 mmol/L Normal 98-107 [facility] Comment on above: Performed By: #### 3 016-3 #### [facility] [place] [facility] [address] [place] [address] CO2 [Moles/Vol] 29 mmol/L Normal 22-32 [facility] Comment on above: Performed By: #### 3 016-3 #### [facility] [place] [facility] [address] [place] [address] Creatinine [Mass/Vol] 0.58 mg/dL Low 0.60-1.30 [facility] Comment on above: Performed By: #### 3 016-3 #### [facility] [place] [facility] [address] [place] [address] GFR/1.73 sq M.predicted among non-blacks MDRD (S/P/Bld) [Vol rate/Area] 108 mL/min/{1.73_m2} Normal >=60 [facility] Comment on above: Result Comment: Effe ctive July 05, 2022, calculation based on the?Chronic Kidney Disease Epidemiology Collaboration (CKD-EPI) equation refit?without adjustment for race. Performed By: #### 3 016-3 #### [facility] [place] [facility] [address] [place] [address] Glucose [Mass/Vol] 89 mg/dL Normal 70-99 [facility] Comment on above: Performed By: #### 3 016-3 #### [facility] [place] [facility] [address] [place] [address] Potassium [Moles/Vol] 3.9 mmol/L Normal 3.6-5.1 [facility] Comment on above: Performed By: #### 3 016-3 #### [facility] [place] [facility] [address] [place] [address] Sodium [Moles/Vol] 136 mmol/L Normal 136-145 [facility] Comment on above: Performed By: #### 3 016-3 #### [facility] [place] [facility] [address] [place] [address] Urea nitrogen [Mass/Vol] 16 mg/dL Normal 8-20 [facility] Comment on above: Performed By: #### 3 016-3 #### [facility] [place] [facility] [address] [place] [address] Urea nitrogen/Creatinine [Mass ratio] 27.6 mg/mg High 12.0-20.0 [facility] Comment on above: Performed By: #### 3 016-3 #### [facility] [place] [facility] [address] [place] [address] Anion gap [Moles/Vol] 7 mmol/L 6 - 18 [facility] Calcium [Mass/Vol] 8.1 mg/dL Low 8.9 - 10. 3 mg/dL [place] [facility] Chloride [Moles/Vol] 100 mmol/L 98 - 10 7 mmol/L [facility] CO2 [Moles/Vol] 29 mmol/L 22 - 32 mmol/L [facility] Creatinine [Mass/Vol] 0.58 mg/dL Low 0.60 - 1.30 mg/dL [facility] GFR/1.73 sq M.predicted among non-blacks MDRD (S/P/Bld) [Vol rate/Area] 108 mL/min/{1.73_m2} - PINF [facility] Comment on above: Effective July 05, 2022, calculation based on the Chronic Kidney Disease Epidemiology Collaboration (CKD-EPI) equation refit without adjustment for race. Glucose [Mass/Vol] 89 mg/dL 70 - 99 mg/dL [employer] Interpretation and review of laboratory results Abnormal [employer] Potassium [Moles/Vol] 3.9 mmol/L 3.6 - 5.1 mmol/L [facility] Sodium [Moles/Vol] 136 mmol/L 136 - 145 mmol/L [facility] Urea nitrogen [Mass/Vol] 16 mg/dL 8 - 20 mg/dL [facility] Urea nitrogen/Creatinine [Mass ratio] 27.6 mg/mg High 12.0 - 20.0 [facility] Culture anaerobicOrdered By: Angelita Lock on 12-07-2022 Bacteria identified Anaer cx Nom (Unsp spec) No anaerobes grown after 4 days. [facility] - Microbiology an d Antimicrobial susceptibilityon 12-07-2022 Bacteria identified Cx Nom (Bld) No growth at 5 days [facility] Basic metabolic 2000 panelon 12-06-2022 Anion gap [Moles/Vol] 5 mmol/L Low 6-18 [facility] Comment on above: Performed By: #### 3 016-3 #### [facility] [place] [facility] [address] [place] [address] Calcium [Mass/Vol] 7.8 mg/dL Low 8.9-10.3 [facility] Comment on above: Performed By: #### 3 016-3 #### [facility] [place] [facility] [address] [place] [address] Chloride [Moles/Vol] 100 mmol/L Normal 98-107 [facility] Comment on above: Performed By: #### 3 016-3 #### [facility] [place] [facility] [address] [place] [address] CO2 [Moles/Vol] 30 mmol/L Normal 22-32 [facility] Comment on above: Performed By: #### 3 016-3 #### [facility] [place] [facility] [address] [place] [address] Creatinine [Mass/Vol] 0.59 mg/dL Low 0.60-1.30 [facility] Comment on above: Performed By: #### 3 016-3 #### [facility] [place] [facility] [address] [place] [address] GFR/1.73 sq M.predicted among non-blacks MDRD (S/P/Bld) [Vol rate/Area] 108 mL/min/{1.73_m2} Normal >=60 [facility] Comment on above: Result Comment: Effe ctive July 05, 2022, calculation based on the?Chronic Kidney Disease Epidemiology Collaboration (CKD-EPI) equation refit?without adjustment for race. Performed By: #### 3 016-3 #### [facility] [place] [facility] [address] [place] [address] Glucose [Mass/Vol] 88 mg/dL Normal 70-99 [facility] Comment on above: Performed By: #### 3 016-3 #### [facility] [place] [facility] [address] [place] [address] Potassium [Moles/Vol] 4.1 mmol/L Normal 3.6-5.1 [facility] Comment on above: Performed By: #### 3 016-3 #### [facility] [place] [facility] [address] [place] [address] Sodium [Moles/Vol] 135 mmol/L Low 136-145 [facility] Comment on above: Performed By: #### 3 016-3 #### [facility] [place] [facility] [address] [place] [address] Urea nitrogen [Mass/Vol] 13 mg/dL Normal 8-20 [facility] Comment on above: Performed By: #### 3 016-3 #### [facility] [place] [facility] [address] [place] [address] Urea nitrogen/Creatinine [Mass ratio] 22.0 mg/mg High 12.0-20.0 [facility] Comment on above: Performed By: #### 3 016-3 #### [facility] [place] [facility] [address] [place] [address] Anion gap [Moles/Vol] 5 mmol/L Low 6 - 18 [facility] Calcium [Mass/Vol] 7.8 mg/dL Low 8.9 - 10. 3 mg/dL [facility] Chloride [Moles/Vol] 100 mmol/L 98 - 10 7 mmol/L [employer] CO2 [Moles/Vol] 30 mmol/L 22 - 32 mmol/L [employer] Creatinine [Mass/Vol] 0.59 mg/dL Low 0.60 - 1.30 mg/dL [employer] GFR/1.73 sq M.predicted among non-blacks MDRD (S/P/Bld) [Vol rate/Area] 108 mL/min/{1.73_m2} - PINF [employer] Comment on above: Effective July 05, 2022, calculation based on the Chronic Kidney Disease Epidemiology Collaboration (CKD-EPI) equation refit without adjustment for race. Glucose [Mass/Vol] 88 mg/dL 70 - 99 mg/dL [employer] Interpretation and review of laboratory results Abnormal [employer] Potassium [Moles/Vol] 4.1 mmol/L 3.6 - 5.1 mmol/L [employer] Sodium [Moles/Vol] 135 mmol/L Low 136 - 145 mmol/L [employer] Urea nitrogen [Mass/Vol] 13 mg/dL 8 - 20 mg/dL [employer] Urea nitrogen/Creatinine [Mass ratio] 22.0 mg/mg High 12.0 - 20.0 [employer] CBC W Ordered Manual Differe ntial panel (Bld)on 12-06-2022 Band form neutrophils/100 WBC (Bld) 2.0 % [employer] Cells Counted Total (Bld) [#] 100 {cells} [employer] Echinocyte/Marcin Cells Present Present Abnormal (none) [employer] Eosinophils (Bld) [#/Vol] 0.11 10*3/uL [employer] Eosinophils/100 WBC (Bld) 2.0 % 0.0 - 7.0 % [employer] Interpretation and review of laboratory results Abnormal [employer] Lymphocytes (Bld) [#/Vol] 1.09 10*3/uL [employer] Lymphocytes/100 WBC (Bld) 19.2 % 17.9 - 49.6 % [employer] Metamyelocytes (Bld) [#/Vol] 0.06 10*3/uL High NINF [facility] Metamyelocytes/100 WBC (Bld) 1.0 % High NINF - 0.0 % [employer] Monocytes (Bld) [#/Vol] 0.23 10*3/uL [employer] Monocytes/100 WBC (Bld) 4.0 % 0.0 - 12.0 % [facility] Myelocytes (Bld) [#/Vol] 0.06 10*3/uL High NINF [facility] Myelocytes/100 WBC (Bld) 1.0 % High RICA F - 0.0 % [facility] Ovalocytes LM Ql (Bld) Present Abnormal (none) [facility] Polychromasia Present 2+ Abnormal (none) [facility] Segmented neutrophils (Bld) [#/Vol] 4.14 10*3/uL [facility] Segmented neutrophils/100 WBC (Bld) 70.7 % 38.1 - 75.5 % [facility] Hemogram and platelets WO di fferential panel (Bld)on 12-06-2022 Band form neutrophils/100 WBC (Bld) 2.0 % Normal [facility] Comment on above: Performed By: #### 3 016-3 #### [facility] [address] [place] [address] Echinocyte/Marcin Cells Present Present Abnormal (none) [facility] Comment on above: Performed By: #### 3 016-3 #### [facility] [address] [place] [address] Elliptocytes/Ovalocytes Present Present Abnormal (none) [facility] Comment on above: Performed By: #### 3 016-3 #### [facility] [address] [place] [address] Eosinophils (Bld) [#/Vol] 0.11 10*3/uL Normal 0.00-0.70 [facility] Comment on above: Performed By: #### 3 016-3 #### [facility] [address] [place] [address] Eosinophils/100 WBC (Bld) 2.0 % Normal 0.0-7.0 [facility] Comment on above: Performed By: #### 3 016-3 #### [facility] [address] [place] [address] Lymphocytes (Bld) [#/Vol] 1.09 10*3/uL Normal 1.00-4.80 [facility] Comment on above: Performed By: #### 3 016-3 #### [facility] ([facility]) LAB [address] [place] [address] Lymphocytes/100 WBC (Bld) 19.2 % Normal 17.9-49.6 [facility] Comment on above: Performed By: #### 3 016-3 #### [facility] ([facility]) [facility] [address] [place] [address] Metamyelocytes Absolute 0.06 K/mcL High <=0.00 [facility] Comment on above: Performed By: #### 3 016-3 #### [facility] [place] [facility] [address] [place] [address] Metamyelocytes/100 WBC (Bld) 1.0 % High <=0.0 [facility] Comment on above: Performed By: #### 3 016-3 #### [facility] ([facility]) [facility] [address] [place] [address] Monocytes (Bld) [#/Vol] 0.23 10*3/uL Normal 0.00-0.90 [facility] Comment on above: Performed By: #### 3 016-3 #### [facility] ([facility]) [facility] [address] [place] [address] Monocytes/100 WBC (Bld) 4.0 % Normal 0.0-12.0 [facility] Comment on above: Performed By: #### 3 016-3 #### [facility] [place] [facility] [address] [facility] [place] [address] Myelocytes Absolute 0.06 K/mcL High <=0.00 [facility] Comment on above: Performed By: #### 3 016-3 #### [facility] [place] [facility] [address] [place] [address] Myelocytes/100 WBC (Bld) 1.0 % High <=0.0 [facility] Comment on above: Performed By: #### 3 016-3 #### [facility] [place] [facility] [address] [place] [address] Neutrophils Absolute 4.14 K/mcL Normal 1.80-7.70 [facility] Comment on above: Performed By: #### 3 016-3 #### [facility] [place] [facility] [address] [place] [address] Neutrophils/100 WBC (Bld) 70.7 % Normal 38.1-75.5 [facility] Comment on above: Performed By: #### 3 016-3 #### [facility] ([facility]) [facility] [address] [place] [address] Polychromasia Present 2+ Abnormal (none) [facility] Comment on above: Performed By: #### 3 016-3 #### [facility] ([facility]) [facility] [address] [place] [address] Total Counted 100 Normal [facility] Comment on above: Performed By: #### 3 016-3 #### [facility] ([facility]) [facility] [address] [place] [address] Hemogram and platelets WO di fferential panel (Bld)Ordered By: Taz Henry on 12-06-2022 Erythrocyte distribution width (RBC) [Ratio] 14.3 % 11.0 - 14.8 % [facility] Hematocrit (Bld) [Volume fraction] 29.9 % Low 39.0 - 49.0 % [facility] Hemoglobin (Bld) [Mass/Vol] 9.5 g/dL Low 13.5 - 17.5 g/dL [facility] Interpretation and review of laboratory results Abnormal [facility] MCH (RBC) [Entitic mass] 30.0 pg [facility] MCHC (RBC) [Mass/Vol] 31.8 g/dL 30.8 - 35.3 g/dL [facility] MCV (RBC) [Entitic vol] 94.3 fL T [facility] Platelet mean volume (Bld) [Entitic vol] 9.6 fL [facility] Platelets (Bld) [#/Vol] 264 10*3/uL [facility] RBC (Bld) [#/Vol] 3.17 10*6/uL Low [facility] WBC (Bld) [#/Vol] 5.7 10*3/uL [facility] Basic metabolic 2000 panelon 12-05-2022 Anion gap [Moles/Vol] 6 mmol/L Normal 6-18 [facility] Comment on above: Performed By: #### 3 016-3 #### [facility] [place] [facility] [address] [place] [address] Calcium [Mass/Vol] 7.9 mg/dL Low 8.9-10.3 [facility] Comment on above: Performed By: #### 3 016-3 #### [facility] [place] [facility] [address] [place] [address] Chloride [Moles/Vol] 103 mmol/L Normal 98-107 [facility] Comment on above: Performed By: #### 3 016-3 #### [facility] [place] [facility] [address] [place] [address] CO2 [Moles/Vol] 28 mmol/L Normal 22-32 [facility] Comment on above: Performed By: #### 3 016-3 #### [facility] [place] [facility] [address] [place] [address] Creatinine [Mass/Vol] 0.56 mg/dL Low 0.60-1.30 [facility] Comment on above: Performed By: #### 3 016-3 #### [facility] [place] [facility] [address] [place] [address] GFR/1.73 sq M.predicted among non-blacks MDRD (S/P/Bld) [Vol rate/Area] 109 mL/min/{1.73_m2} Normal >=60 [facility] Comment on above: Result Comment: Effe ctive July 05, 2022, calculation based on the?Chronic Kidney Disease Epidemiology Collaboration (CKD-EPI) equation refit?without adjustment for race. Performed By: #### 3 016-3 #### [facility] [place] ([facility] [address] [place] [address] Glucose [Mass/Vol] 84 mg/dL Normal 70-99 [facility] Comment on above: Performed By: #### 3 016-3 #### [facility] [facility] [place] ([facility] [address] [place] [address] Potassium [Moles/Vol] 4.2 mmol/L Normal 3.6-5.1 [facility] Comment on above: Performed By: #### 3 016-3 #### [facility] [place] [facility] [address] [place] [address] Sodium [Moles/Vol] 137 mmol/L Normal 136-145 [facility] Comment on above: Performed By: #### 3 016-3 #### [facility] [place] [facility] [address] [place] [address] 22025 Urea nitrogen [Mass/Vol] 15 mg/dL Normal 8-20 [facility] Comment on above: Performed By: #### 3 016-3 #### [facility] [place] [facility] [address] [place] [address] 35942 Urea nitrogen/Creatinine [Mass ratio] 26.8 mg/mg High 12.0-20.0 [facility] Comment on above: Performed By: #### 3 016-3 #### [facility] [place] [facility] [address] [place] [address] Anion gap [Moles/Vol] 6 mmol/L 6 - 18 [facility] Calcium [Mass/Vol] 7.9 mg/dL Low 8.9 - 10. 3 mg/dL [facility] Chloride [Moles/Vol] 103 mmol/L 98 - 10 7 mmol/L [facility] CO2 [Moles/Vol] 28 mmol/L 22 - 32 mmol/L [facility] Creatinine [Mass/Vol] 0.56 mg/dL Low 0.60 - 1.30 mg/dL [facility] GFR/1.73 sq M.predicted among non-blacks MDRD (S/P/Bld) [Vol rate/Area] 109 mL/min/{1.73_m2} - PINF [facility] Comment on above: Effective July 05, 2022, calculation based on the Chronic Kidney Disease Epidemiology Collaboration (CKD-EPI) equation refit without adjustment for race. Glucose [Mass/Vol] 84 mg/dL 70 - 99 mg/dL [facility] Interpretation and review of laboratory results Abnormal [facility] Potassium [Moles/Vol] 4.2 mmol/L 3.6 - 5.1 mmol/L [facility] Sodium [Moles/Vol] 137 mmol/L 136 - 145 mmol/L [facility] Urea nitrogen [Mass/Vol] 15 mg/dL 8 - 20 mg/dL [facility] Urea nitrogen/Creatinine [Mass ratio] 26.8 mg/mg High 12.0 - 20.0 [facility] Hemogram and platelets WO di fferential panel (Bld)on 12-05-2022 Erythrocyte distribution width (RBC) [Ratio] 14.2 % Normal 11.0-14.8 [facility] Comment on above: Order Comment: Pleas e do lucas thanks Performed By: #### 3 016-3 #### [facility] ([facility]) LAB [address] [place] [address] Hematocrit (Bld) [Volume fraction] 33.5 % Low 39.0-49.0 [facility] Comment on above: Order Comment: Pleas e do lucas thanks Performed By: #### 3 016-3 #### [facility] ([facility]) LAB [address] [place] [address] Hemoglobin (Bld) [Mass/Vol] 10.3 g/dL Low 13.5-17.5 [facility] Comment on above: Order Comment: Pleas e do lucas thanks Performed By: #### 3 016-3 #### [facility] ([facility]) LAB [address] [place] [address] MCH 29.4 pcg Normal 27.0-34.0 [facility] Comment on above: Order Comment: Pleas e do lucas thanks Performed By: #### 3 016-3 #### [facility] ([facility]) LAB [address] [place] [address] MCHC (RBC) [Mass/Vol] 30.7 g/dL Low 30.8-35.3 [facility] Comment on above: Order Comment: Pleas e do lucas thanks Performed By: #### 3 016-3 #### [facility] [place] [facility] [address] [place] [address] MCV (RBC) [Entitic vol] 95.7 fL Normal 80.0-97.0 [facility] Comment on above: Order Comment: Pleas e do lucas thanks Performed By: #### 3 016-3 #### [facility] ([facility]) LAB [address] [place] [address] Platelet mean volume (Bld) [Entitic vol] 9.7 fL Normal 6.2-12.1 [facility] Comment on above: Order Comment: Pleas e do lucas thanks Performed By: #### 3 016-3 #### [facility] ([facility]) LAB [address] [place] [address] Platelets (Bld) [#/Vol] 249 10*3/uL Normal 142-424 [facility] Comment on above: Order Comment: Pleas e do lucas thanks Performed By: #### 3 016-3 #### [facility] ([facility]) LAB [address] [place] [address] RBC (Bld) [#/Vol] 3.50 10*6/uL Low 4.30-5.70 [facility] Comment on above: Order Comment: Pleas e do lucas thanks Performed By: #### 3 016-3 #### [facility] [address] [place] [address] WBC (Bld) [#/Vol] 5.3 10*3/uL Normal 4.6-10.2 [facility] Comment on above: Order Comment: Pleas e do lucas thanks Performed By: #### 3 016-3 #### [facility] ([facility]) LAB [address] [place] [address] Erythrocyte distribution width (RBC) [Ratio] 14.2 % 11.0 - 14.8 % [facility] Hematocrit (Bld) [Volume fraction] 33.5 % Low 39.0 - 49.0 % [facility] Hemoglobin (Bld) [Mass/Vol] 10.3 g/dL Low 13.5 - 17.5 g/dL [facility] Interpretation and review of laboratory results Abnormal [facility] MCH (RBC) [Entitic mass] 29.4 pg [facility] MCHC (RBC) [Mass/Vol] 30.7 g/dL Low 30.8 - 35.3 g/dL [facility] MCV (RBC) [Entitic vol] 95.7 fL [facility] Platelet mean volume (Bld) [Entitic vol] 9.7 fL [facility] Platelets (Bld) [#/Vol] 249 10*3/uL [facility] RBC (Bld) [#/Vol] 3.50 10*6/uL Low [facility] WBC (Bld) [#/Vol] 5.3 10*3/uL [facility] Basic metabolic 2000 panelon 12-04-2022 Anion gap [Moles/Vol] 8 mmol/L Normal 6-18 [facility] Comment on above: Performed By: #### 3 016-3 #### [facility] ([facility]) LAB [address] [place] [address] Calcium [Mass/Vol] 7.9 mg/dL Low 8.9-10.3 [facility] Comment on above: Performed By: #### 3 016-3 #### [facility] ([facility]) LAB [address] [place] [address] Chloride [Moles/Vol] 102 mmol/L Normal 98-107 [facility] Comment on above: Performed By: #### 3 016-3 #### [facility] ([facility]) LAB [address] [place] [address] CO2 [Moles/Vol] 27 mmol/L Normal 22-32 [facility] Comment on above: Performed By: #### 3 016-3 #### [facility] ([facility]) LAB [address] [place] [address] Creatinine [Mass/Vol] 0.54 mg/dL Low 0.60-1.30 [facility] Comment on above: Performed By: #### 3 016-3 #### [facility] ([facility]) LAB [address] [place] [address] GFR/1.73 sq M.predicted among non-blacks MDRD (S/P/Bld) [Vol rate/Area] 111 mL/min/{1.73_m2} Normal >=60 [facility] Comment on above: Result Comment: Effe ctive July 05, 2022, calculation based on the?Chronic Kidney Disease Epidemiology Collaboration (CKD-EPI) equation refit?without adjustment for race. Performed By: #### 3 016-3 #### [facility] ([facility]) LAB [address] [place] [address] Glucose [Mass/Vol] 92 mg/dL Normal 70-99 [facility] Comment on above: Performed By: #### 3 016-3 #### [facility] ([facility]) LAB [address] [place] [address] Potassium [Moles/Vol] 4.0 mmol/L Normal 3.6-5.1 [facility] Comment on above: Performed By: #### 3 016-3 #### [facility] ([facility]) LAB [address] [place] [address] Sodium [Moles/Vol] 137 mmol/L Normal 136-145 [facility] Comment on above: Performed By: #### 3 016-3 #### [facility] ([facility]) LAB [address] [place] [address] Urea nitrogen [Mass/Vol] 15 mg/dL Normal 8-20 [facility] Comment on above: Performed By: #### 3 016-3 #### [facility] [address] [place] [address] Urea nitrogen/Creatinine [Mass ratio] 27.8 mg/mg High 12.0-20.0 [facility] Comment on above: Performed By: #### 3 016-3 #### [facility] [place] [facility] [address] [facility] [place] [address] Anion gap [Moles/Vol] 8 mmol/L 6 - 18 [facility] Calcium [Mass/Vol] 7.9 mg/dL Low 8.9 - 10. 3 mg/dL [facility] Chloride [Moles/Vol] 102 mmol/L 98 - 10 7 mmol/L [facility] CO2 [Moles/Vol] 27 mmol/L 22 - 32 mmol/L [facility] Creatinine [Mass/Vol] 0.54 mg/dL Low 0.60 - 1.30 mg/dL [facility] GFR/1.73 sq M.predicted among non-blacks MDRD (S/P/Bld) [Vol rate/Area] 111 mL/min/{1.73_m2} - PINF [facility] Comment on above: Effective July 05, 2022, calculation based on the Chronic Kidney Disease Epidemiology Collaboration (CKD-EPI) equation refit without adjustment for race. Glucose [Mass/Vol] 92 mg/dL 70 - 99 mg/dL [facility] Interpretation and review of laboratory results Abnormal [facility] Potassium [Moles/Vol] 4.0 mmol/L 3.6 - 5.1 mmol/L [facility] Sodium [Moles/Vol] 137 mmol/L 136 - 145 mmol/L [facility] Urea nitrogen [Mass/Vol] 15 mg/dL 8 - 20 mg/dL [facility] Urea nitrogen/Creatinine [Mass ratio] 27.8 mg/mg High 12.0 - 20.0 [facility] Culture aspirateOrdered By: Gm Christian on 12-04-2022 Bacteria identified Anaer cx Nom (Asp) No growth at 2 days [facility] Microscopic observation Gram stain Nom (Unsp spec) No Polymorphonuclear leukocytes [facility] Comment on above: This is an appended report. These results have been appended to a previously preliminary verified report. Microscopic observation Gram stain Nom (Unsp spec) No Epithelial cells [facility] Comment on above: This is an appended report. These results have been appended to a previously preliminary verified report. Microscopic observation Gram stain Nom (Unsp spec) No organisms seen [facility] Comment on above: This is an appended report. These results have been appended to a previously preliminary verified report. [facility] Basic metabolic 2000 panelon 12-03-2022 Anion gap [Moles/Vol] 7 mmol/L Normal 6-18 [facility] Comment on above: Performed By: #### 3 016-3 #### [facility] [place] [facility] [address] [place] [address] Calcium [Mass/Vol] 7.8 mg/dL Low 8.9-10.3 [facility] Comment on above: Performed By: #### 3 016-3 #### [facility] [place] [facility] [address] [place] [address] Chloride [Moles/Vol] 102 mmol/L Normal 98-107 [facility] Comment on above: Performed By: #### 3 016-3 #### [facility] [place] [facility] [address] [place] [address]23 CO2 [Moles/Vol] 28 mmol/L Normal 22-32 [facility] Comment on above: Performed By: #### 3 016-3 #### [facility] [place] [facility] [address] [place] [address] Creatinine [Mass/Vol] 0.72 mg/dL Normal 0.60-1.30 [facility] Comment on above: Performed By: #### 3 016-3 #### [facility] [place] [facility] [address] [place] [address]677 GFR/1.73 sq M.predicted among non-blacks MDRD (S/P/Bld) [Vol rate/Area] 101 mL/min/{1.73_m2} Normal >=60 [facility] Comment on above: Result Comment: Effe ctive July 05, 2022, calculation based on the?Chronic Kidney Disease Epidemiology Collaboration (CKD-EPI) equation refit?without adjustment for race. Performed By: #### 3 016-3 #### [facility] [place] [facility] [address] [place] [address] Glucose [Mass/Vol] 137 mg/dL High 70-99 [facility] Comment on above: Performed By: #### 3 016-3 #### [facility] [place] [facility] [address] [place] [address] Potassium [Moles/Vol] 3.8 mmol/L Normal 3.6-5.1 [facility] Comment on above: Performed By: #### 3 016-3 #### [facility] [place] [facility] [address] [place] [address] Sodium [Moles/Vol] 137 mmol/L Normal 136-145 [facility] Comment on above: Performed By: #### 3 016-3 #### [facility] [address] [place] [address] Urea nitrogen [Mass/Vol] 17 mg/dL Normal 8-20 [facility] Comment on above: Performed By: #### 3 016-3 #### [facility] [place] [facility] [address] [place] [address] Urea nitrogen/Creatinine [Mass ratio] 23.6 mg/mg High 12.0-20.0 [facility] Comment on above: Performed By: #### 3 016-3 #### [facility] ([facility]) LAB [address] [place] [address] Anion gap [Moles/Vol] 7 mmol/L 6 - 18 [facility] Calcium [Mass/Vol] 7.8 mg/dL Low 8.9 - 10. 3 mg/dL [facility] Chloride [Moles/Vol] 102 mmol/L 98 - 10 7 mmol/L [facility] CO2 [Moles/Vol] 28 mmol/L 22 - 32 mmol/L [facility] Creatinine [Mass/Vol] 0.72 mg/dL 0.60 - 1.30 mg/dL [facility] GFR/1.73 sq M.predicted among non-blacks MDRD (S/P/Bld) [Vol rate/Area] 101 mL/min/{1.73_m2} - PINF [facility] Comment on above: Effective July 05, 2022, calculation based on the Chronic Kidney Disease Epidemiology Collaboration (CKD-EPI) equation refit without adjustment for race. Glucose [Mass/Vol] 137 mg/dL High 70 - 99 mg/dL [facility] Interpretation and review of laboratory results Abnormal [facility] Potassium [Moles/Vol] 3.8 mmol/L 3.6 - 5.1 mmol/L [facility] Sodium [Moles/Vol] 137 mmol/L 136 - 145 mmol/L [facility] Urea nitrogen [Mass/Vol] 17 mg/dL 8 - 20 mg/dL [facility] Urea nitrogen/Creatinine [Mass ratio] 23.6 mg/mg High 12.0 - 20.0 [facility] Bacteria Spec Anaerobe Culto n 12-02-2022 Bacteria identified Anaer cx Nom (Unsp spec) Culture, Anaerobic Status = F No anaerobes grown after 4 days. Normal [facility] Comment on above: Performed By: #### 2 4317-0 #### [facility] [address] [place] [address] CT GUIDED PERC DRAIN PLCMNTo n 12-02-2022 [...] anesthetized with LIDOCAINE. Under CT guidance a 12-Salvadorean pigtail drainage catheter was placed within the collection. 10 mL of serosanguineous fluid was aspirated and sent for analysis. The catheter was sutured to the skin and then attached to gravity drainage. PATIENT DISPOSITION: Discharged from the department in stable condition. IMPRESSION: Technically successful CT-guided 12-Salvadorean drain placement within postoperative fluid collection in the upper back -------- FINAL REPORT -------- Dictated By: Louie Chakraborty Dictated Date: 12/02/2022 14:39 Assigned Physician: Louie Chakraborty Reviewed and Electronically Signed By: Louie Chakraborty Signed Date: 12/02/2022 14:41 Workstation ID: [id number] Transcribed By: Self Edit Transcribed Date: 12/02/2022 14:39 Normal [facility] CT Guided Perc Drain Plcmnto n 12-02-[address]-guided 12-Salvadorean drain placement within postoperative fluid collection in [...] anesthetized with LIDOCAINE. Under CT guidance a 12-Salvadorean pigtail drainage catheter was placed within the [...] anesthetized with LIDOCAINE. Under CT guidance a 12-Salvadorean pigtail drainage catheter was placed within the collection. 10 mL of serosanguineous fluid was aspirated and sent for analysis. The catheter was sutured to the skin and then attached to gravity drainage. PATIENT DISPOSITION: Discharged from the department in stable condition. IMPRESSION: Technically successful CT-guided 12-Salvadorean drain placement within postoperative fluid collection in the upper back -------- FINAL REPORT -------- Dictated By: Louie Chakraborty Dictated Date: 12/02/2022 14:39 Assigned Physician: Louie Chakraborty Reviewed and Electronically Signed By: Louie Chakraborty Signed Date: 12/02/2022 14:41 Workstation ID: [id number] Transcribed By: Self Edit Transcribed Date: 12/02/2022 14:39 [facility] Radiology Study observation (narrative) [facility] CULTURE ASPIRATEon CULTURE ASPIRATE Culture, Aspirate Status = F [...] a previously preliminary verified report. Normal [facility] Comment on above: Performed By: #### 3 016-3 #### [facility] ([facility]) LAB [address] [place] [address] MR CERVICAL SPINE WO AND W C [facility] 12-02-2022 MR CERVICAL SPINE WO AND [...] Edit Transcribed Date: 12/02/2022 07:20 Normal [facility] MR Cervical Spine wo and w C [facility] 12-02-2022 Radiology Study observation (narrative) [facility] MR THORACIC SPINE WO AND W C [facility] 12-02-2022 MR THORACIC SPINE WO AND [...] Edit Transcribed Date: 12/02/2022 07:20 Normal [facility] MR Thoracic Spine wo and w C [facility] 12-02-2022 Radiology Study observation (narrative) [facility] Information 12-02 EXAMINATION TYPE: MR THORACIC SPINE WO [...] spine, grossly similar to the prior examination. POWERSCRIBE Shay Dallas M D - 12/02/2022 EXAMINATION [...] By: Self Edit Transcribed Date: 12/02/2022 07:20 [facility] EXAMINATION TYPE: CT CERVICAL SPINE W CONTRAST, [...] Marcello Fisher DO and documented in the [employer] system on 12/02/2022 12:31 AM, Message ID [id number]. -------- FINAL REPORT -------- Dictated By: Ricky Walters Dictated Date: 12/02/2022 00:09 Assigned Physician: Ricky Walters Reviewed and Electronically Signed By: Ricky Walters Signed Date: 12/02/2022 00:32 Workstation ID: [id number] Transcribed By: Self Edit Transcribed Date: 12/02/2022 00:09 [employer] No Panel InformationOrdered By: Shya Dallas on 12-02-2022 [employer] Work Phone: No Panel InformationOrdered By: Ricky Walters on 12-02-2022 [employer] Phone: PT Coag (PPP) [Time]on 12-02 aPTT Coag (Bld) [Time] 24.7 s Normal 23.3-35.3 [facility] Comment on above: Performed By: #### 3 016-3 #### [facility] ([facility]) LAB [address] [place] [address] INR Coag (PPP) [Relative time] 1.0 {INR} NINF - 5.0 [facility] Comment on above: The recommended ther apeutic INR range for most cardiac indications is 2.0-3.0 For high intensity therapy (i.e. mechanical heart valves), the recommended range is 2.5-3.5 Interpretation and review of laboratory results Normal [employer] PT Coag (Bld) [Time] 13.5 s [facility] SARS-CoV-2 (COVID-19) RNA NA A+probe Ql (Resp)on 12-02-2022 Interpretation and review of laboratory results Normal [facility] SARS-CoV-2 (COVID-19) RdRp gene GARTH+probe Ql (Resp) Not detected Not Detected [facility] SARS-CoV-2 RNA Resp Ql GARTH+p robeon 12-02-2022 SARS-CoV-2 (COVID-19) RNA GARTH+probe Ql (Resp) Not detected Normal Not Detected [facility] Comment on above: Performed By: #### 9 4500-6 #### [facility] [address] [place] [address] aPTT Coag (Bld) [Time]on aPTT Coag (PPP) [Time] 24.7 s [facility] Interpretation and review of laboratory results Normal [facility] Bacteria Bld Culton 12-02-19 23 Bacteria identified Cx Nom (Bld) Culture, Blood Status = F No growth at 5 days Normal [facility] Comment on above: Order Comment: From a different site than #1. Performed By: #### 2 4317-0 #### [facility] [address] [place] [address] Basic metabolic 2000 panelon 12-01-2022 Anion gap [Moles/Vol] 8 mmol/L 6 - 18 [facility] Calcium [Mass/Vol] 8.4 mg/dL Low 8.9 - 10. 3 mg/dL [facility] Chloride [Moles/Vol] 99 mmol/L 98 - 10 7 mmol/L [facility] CO2 [Moles/Vol] 28 mmol/L 22 - 32 mmol/L [facility] Creatinine [Mass/Vol] 0.54 mg/dL Low 0.60 - 1.30 mg/dL [facility] GFR/1.73 sq M.predicted among non-blacks MDRD (S/P/Bld) [Vol rate/Area] 111 mL/min/{1.73_m2} - PINF [facility] Comment on above: Effective July 05, 2022, calculation based on the Chronic Kidney Disease Epidemiology Collaboration (CKD-EPI) equation refit without adjustment for race. Glucose [Mass/Vol] 118 mg/dL High 70 - 99 mg/dL [facility] Potassium [Moles/Vol] 3.5 mmol/L Low 3.6 - 5.1 mmol/L [facility] Sodium [Moles/Vol] 135 mmol/L Low 136 - 145 mmol/L [facility] Urea nitrogen [Mass/Vol] 18 mg/dL 8 - 20 mg/dL [facility] Urea nitrogen/Creatinine [Mass ratio] 33.3 mg/mg High 12.0 - 20.0 [employer] C-reactive proteinon 023 CRP [Mass/Vol] 13.2 mg/dL High 0.0 - 1.0 mg/dL [facility] CBC W Ordered Manual Differe ntial panel (Bld)on 12-01-2022 Cells Counted Total (Bld) [#] 100 {cells} [facility] Echinocyte/Marcin Cells Present Present Abnormal (none) [facility] Eosinophils (Bld) [#/Vol] 0.26 10*3/uL [facility] Eosinophils/100 WBC (Bld) 4.0 % 0.0 - 7.0 % [employer] Interpretation and review of laboratory results Abnormal [facility] Lymphocytes (Bld) [#/Vol] 0.86 10*3/uL Low [facility] Lymphocytes/100 WBC (Bld) 13.0 % Low 17.9 - 49.6 % [facility] Monocytes (Bld) [#/Vol] 0.13 10*3/uL [facility] Monocytes/100 WBC (Bld) 2.0 % 0.0 - 12.0 % [facility] Ovalocytes LM Ql (Bld) Present Abnormal (none) [facility] Polychromasia Present 1+ Abnormal (none) [facility] Segmented neutrophils (Bld) [#/Vol] 5.35 10*3/uL [facility] Segmented neutrophils/100 WBC (Bld) 81.0 % High 38.1 - 75.5 % [facility] CRP [Mass/Vol]on 12-01-2022 Anion gap [Moles/Vol] 8 mmol/L Normal 6-18 [facility] Comment on above: Performed By: #### 1 988-5 #### [facility] [address] [place] [address] Calcium [Mass/Vol] 8.4 mg/dL Low 8.9-10.3 [facility] Comment on above: Performed By: #### 1 988-5 #### [facility] [address] [place] [address] Chloride [Moles/Vol] 99 mmol/L Normal 98-107 [facility] Comment on above: Performed By: #### 1 988-5 #### [facility] [address] [place] [address] CO2 [Moles/Vol] 28 mmol/L Normal 22-32 [facility] Comment on above: Performed By: #### 1 988-5 #### [facility] [address] [place] [address] Creatinine [Mass/Vol] 0.54 mg/dL Low 0.60-1.30 [facility] Comment on above: Performed By: #### 1 988-5 #### [facility] [address] [place] [address] GFR/1.73 sq M.predicted among non-blacks MDRD (S/P/Bld) [Vol rate/Area] 111 mL/min/{1.73_m2} Normal >=60 [facility] Comment on above: Result Comment: Effe ctive July 05, 2022, calculation based on the?Chronic Kidney Disease Epidemiology Collaboration (CKD-EPI) equation refit?without adjustment for race. Performed By: #### 1 988-5 #### [facility] [address] [place] [address] Glucose [Mass/Vol] 118 mg/dL High 70-99 [facility] Comment on above: Performed By: #### 1 988-5 #### [facility] [address] [place] [address] Potassium [Moles/Vol] 3.5 mmol/L Low 3.6-5.1 [facility] Comment on above: Performed By: #### 1 988-5 #### [facility] [address] [place] [address] Sodium [Moles/Vol] 135 mmol/L Low 136-145 [facility] Comment on above: Performed By: #### 1 988-5 #### [facility] [address] [place] [address] Urea nitrogen [Mass/Vol] 18 mg/dL Normal 8-20 [facility] Comment on above: Performed By: #### 1 988-5 #### [facility] [address] [place] [address] Urea nitrogen/Creatinine [Mass ratio] 33.3 mg/mg High 12.0-20.0 [facility] Comment on above: Performed By: #### 1 988-5 #### [facility] [address] [place] [address] CT CERVICAL SPINE W CONTRAST on 12-01-2022 [...] Marcello Fisher DO and documented in the Scripped system on 12/02/2022 12:31 AM, Message ID [id number]. -------- FINAL REPORT -------- Dictated By: Ricky Walters Dictated Date: 12/02/2022 00:09 Assigned Physician: Ricky Walters Reviewed and Electronically Signed By: Ricky Walters Signed Date: 12/02/2022 00:32 Workstation ID: [id number] Transcribed By: Self Edit Transcribed Date: 12/02/2022 00:09 Normal [facility] CT THORACIC SPINE W CONTRAST on [...] Marcello Fisher DO and documented in the Scripped system on 12/02/2022 12:31 AM, Message ID [id number]. -------- FINAL REPORT -------- Dictated By: Ricky Walters Dictated Date: 12/02/2022 00:09 Assigned Physician: Ricky Walters Reviewed and Electronically Signed By: Ricky Walters Signed Date: 12/02/2022 00:32 Workstation ID: [id number] Transcribed By: Self Edit Transcribed Date: 12/02/2022 00:09 Normal [facility] ESR (Bld) [Velocity]on 12-01 Interpretation and review of laboratory results Abnormal [employer] [facility] Hemogram and platelets WO di fferential panel (Bld)on 12-01-2022 Echinocyte/Marcin Cells Present Present Abnormal (none) [facility] Comment on above: Performed By: #### 2 4317-0 #### [facility] [address] [place] [address] Elliptocytes/Ovalocytes Present Present Abnormal (none) [facility] Comment on above: Performed By: #### 2 4317-0 #### [facility] [address] [place] [address] Eosinophils (Bld) [#/Vol] 0.26 10*3/uL Normal 0.00-0.70 [facility] Comment on above: Performed By: #### 2 4317-0 #### [facility] [address] [place] [address] Eosinophils/100 WBC (Bld) 4.0 % Normal 0.0-7.0 [facility] Comment on above: Performed By: #### 2 4317-0 #### [facility] [address] [place] [address] Lymphocytes (Bld) [#/Vol] 0.86 10*3/uL Low 1.00-4.80 [facility] Comment on above: Performed By: #### 2 4317-0 #### [facility] [address] [place] [address] Lymphocytes/100 WBC (Bld) 13.0 % Low 17.9-49.6 [facility] Comment on above: Performed By: #### 2 4317-0 #### [facility] [address] [place] [address] Monocytes (Bld) [#/Vol] 0.13 10*3/uL Normal 0.00-0.90 [facility] Comment on above: Performed By: #### 2 4317-0 #### [facility] [address] [place] [address] Monocytes/100 WBC (Bld) 2.0 % Normal 0.0-12.0 [facility] Comment on above: Performed By: #### 2 4317-0 #### [facility] [address] [place] [address] Neutrophils Absolute 5.35 K/mcL Normal 1.80-7.70 [facility] Comment on above: Performed By: #### 2 4317-0 #### [facility] [address] [place] [address] Neutrophils/100 WBC (Bld) 81.0 % High 38.1-75.5 [facility] Comment on above: Performed By: #### 2 4317-0 #### [facility] [address] [place] [address] Polychromasia Present 1+ Abnormal (none) [facility] Comment on above: Performed By: #### 2 4317-0 #### [facility] [address] [place] [address] Total Counted 100 Normal [facility] Comment on above: Performed By: #### 2 4317-0 #### [facility] [address] [place] [address] Hemogram and platelets WO di fferential panel (Bld)Ordered By: Scot Atkinson on 12-01-2022 Erythrocyte distribution width (RBC) [Ratio] 13.6 % 11.0 - 14.8 % [facility] Hematocrit (Bld) [Volume fraction] 32.2 % Low 39.0 - 49.0 % [facility] Hemoglobin (Bld) [Mass/Vol] 10.5 g/dL Low 13.5 - 17.5 g/dL [facility] Interpretation and review of laboratory results Abnormal [facility] MCH (RBC) [Entitic mass] 30.3 pg [facility] MCHC (RBC) [Mass/Vol] 32.6 g/dL 30.8 - 35.3 g/dL [facility] MCV (RBC) [Entitic vol] 93.1 fL T [facility] Platelet mean volume (Bld) [Entitic vol] 9.7 fL [facility] Platelets (Bld) [#/Vol] 167 10*3/uL [facility] RBC (Bld) [#/Vol] 3.46 10*6/uL Low [facility] ty [facility] WBC (Bld) [#/Vol] 6.6 10*3/uL [facility] Lactate (Bld) [Mass/Vol]on 0 12-01-2022 Lactate [Moles/Vol] 0.8 mmol/L Normal 0.5-2.0 [facility] Comment on above: Performed By: #### 5 9032-3 #### [facility] [address] [place] [address] Interpretation and review of laboratory results Normal [facility] Lactate [Moles/Vol] 0.8 mmol/L 0.5 - 2. 0 mmol/L [facility] No Panel Informationon 12-01 Radiology Study observation (narrative) [facility] Interpretation and review of laboratory results Abnormal [facility] Red top grass IgE Qn (S)on 0 12-01-2022 Specimen source Nom (Unsp spec) Hold for add-ons. [facility] Comment on above: Auto resulted. [facility] Sedimentation rateon 023 ESR (Bld) [Velocity] 89 mm/h High [facility] Basic metabolic 2000 panelon 11-16-2022 Anion gap [Moles/Vol] 5 mmol/L Low 6-18 [facility] Comment on above: Performed By: #### 2 4321-2 #### [facility] [address] [place] [address] Calcium [Mass/Vol] 8.2 mg/dL Low 8.9-10.3 [facility] Comment on above: Performed By: #### 2 4321-2 #### [facility] [address] [place] [address] Chloride [Moles/Vol] 101 mmol/L Normal 98-107 [facility] Comment on above: Performed By: #### 2 4321-2 #### [facility] [address] [place] [address] CO2 [Moles/Vol] 29 mmol/L Normal 22-32 [facility] Comment on above: Performed By: #### 2 432-2 #### [facility] [address] [place] [address] Creatinine [Mass/Vol] 0.71 mg/dL Normal 0.60-1.30 [facility] Comment on above: Performed By: #### 2 432-2 #### [facility] [address] [place] [address] GFR/1.73 sq M.predicted among non-blacks MDRD (S/P/Bld) [Vol rate/Area] 102 mL/min/{1.73_m2} Normal >=60 [facility] Comment on above: Result Comment: Effe ctive July 05, 2022, calculation based on the?Chronic Kidney Disease Epidemiology Collaboration (CKD-EPI) equation refit?without adjustment for race. Performed By: #### 2 4321-2 #### [facility] [address] [place] [address] Glucose [Mass/Vol] 157 mg/dL High 70-99 [facility] Comment on above: Performed By: #### 2 4321-2 #### [facility] [address] [place] [address] Potassium [Moles/Vol] 4.6 mmol/L Normal 3.6-5.1 [facility] Comment on above: Performed By: #### 2 4321-2 #### [facility] [address] [place] [address] Sodium [Moles/Vol] 135 mmol/L Low 136-145 [facility] Comment on above: Performed By: #### 2 4321-2 #### [facility] [address] [place] [address] Urea nitrogen [Mass/Vol] 28 mg/dL High 8-20 [facility] Comment on above: Performed By: #### 2 4321-2 #### [facility] [address] [place] [address] Urea nitrogen/Creatinine [Mass ratio] 39.4 mg/mg High 12.0-20.0 [facility] Comment on above: Performed By: #### 2 4321-2 #### [facility] [address] [place] [address] Anion gap [Moles/Vol] 5 mmol/L Low 6 - 18 [facility] Calcium [Mass/Vol] 8.2 mg/dL Low 8.9 - 10. 3 mg/dL [facility] Chloride [Moles/Vol] 101 mmol/L 98 - 10 7 mmol/L [employer] CO2 [Moles/Vol] 29 mmol/L 22 - 32 mmol/L [facility] Creatinine [Mass/Vol] 0.71 mg/dL 0.60 - 1.30 mg/dL [employer] GFR/1.73 sq M.predicted among non-blacks MDRD (S/P/Bld) [Vol rate/Area] 102 mL/min/{1.73_m2} - PINF [employer] Comment on above: Effective July 05, 2022, calculation based on the Chronic Kidney Disease Epidemiology Collaboration (CKD-EPI) equation refit without adjustment for race. Glucose [Mass/Vol] 157 mg/dL High 70 - 99 mg/dL [facility] [facility] Interpretation and review of laboratory results Abnormal [employer] Potassium [Moles/Vol] 4.6 mmol/L 3.6 - 5.1 mmol/L [facility] Sodium [Moles/Vol] 135 mmol/L Low 136 - 145 mmol/L [facility] Urea nitrogen [Mass/Vol] 28 mg/dL High 8 - 20 mg/dL [facility] Urea nitrogen/Creatinine [Mass ratio] 39.4 mg/mg High 12.0 - 20.0 [facility] Hemogram and platelets WO di fferential panel (Bld)on 11-16-2022 Erythrocyte distribution width (RBC) [Ratio] 13.2 % Normal 11.0-14.8 [facility] Comment on above: Performed By: #### 2 4317-0 ####[address] [address] Hematocrit (Bld) [Volume fraction] 31.0 % Low 39.0-49.0 [facility] Comment on above: Performed By: #### 2 4317-0 ####[address] [address] Hemoglobin (Bld) [Mass/Vol] 10.6 g/dL Low 13.5-17.5 [facility] Comment on above: Performed By: #### 2 4317-0 ####[address] [address] MCH 31.4 pcg Normal 27.0-34.0 [facility] Comment on above: Performed By: #### 2 4317-0 ####[address] [address] MCHC (RBC) [Mass/Vol] 34.2 g/dL Normal 30.8-35.[address] [facility] Comment on above: Performed By: #### 2 4317-0 ####[address] [address] MCV (RBC) [Entitic vol] 91.7 fL Normal 80.0-97.0 M [facility] Comment on above: Performed By: #### 2 4317-0 ####[address] [address] Platelet mean volume (Bld) [Entitic vol] 10.3 fL Normal 6.2-12.1 [facility] Comment on above: Performed By: #### 2 4317-0 ####[address] [address] Platelets (Bld) [#/Vol] 227 10*3/uL Normal 142-424 [facility] Comment on above: Performed By: #### 2 4317-0 ####[address] [address] RBC (Bld) [#/Vol] 3.38 10*6/uL Low 4.30-5.70 [facility] Comment on above: Performed By: #### 2 4317-0 ####[address] [address] WBC (Bld) [#/Vol] 10.1 10*3/uL Normal 4.6-10.2 [facility] Comment on above: Performed By: #### 2 4317-0 ####[address] [address] Erythrocyte distribution width (RBC) [Ratio] 13.2 % 11.0 - 14.8 % [facility] Hematocrit (Bld) [Volume fraction] 31.0 % Low 39.0 - 49.0 % [facility] Hemoglobin (Bld) [Mass/Vol] 10.6 g/dL Low 13.5 - 17.5 g/dL [facility] Interpretation and review of laboratory results Abnormal [facility] MCH (RBC) [Entitic mass] 31.4 pg [facility] MCHC (RBC) [Mass/Vol] 34.2 g/dL 30.8 - 35.3 g/dL [facility] MCV (RBC) [Entitic vol] 91.7 fL T [facility] Platelet mean volume (Bld) [Entitic vol] 10.3 fL [facility] Platelets (Bld) [#/Vol] 227 10*3/uL [facility] RBC (Bld) [#/Vol] 3.38 10*6/uL Low [facility] WBC (Bld) [#/Vol] 10.1 10*3/uL [facility] Pathology studyOrdered By: Apryl Mullen on 11-16-2022 Citation Johnny (Reference lab test) a2sdgFEsFLSdu7skYEGzaY FuZzEwMzNcZnRuYmpcdWMx BSllgeVuYHdoh6EfQ5TxCk AwMFxhbnNpXGRlZmxhbmcx JRJpAMI9nbRaAQXsDWolZU YxTHssJq1prQQxqZkjNjXp SVMbd7wkxyHBFKqkUMFSEM w5g7rsZHEaOqC2uBYbNItb J3jfrvHtrEWqM7Drn2FeDG o2dD83YJOcbW9jxVAtVItb erRjGvZ0OHgaYFDvEfW9ON JloKTtKVJzH8goXRXvPHch mxDbdoA5VKCvxQUfENW4HX JcGCExV5JbAE6tEQGrkZGb LBi7l1tkuDbcRUXlNOT6n3 kxSAmlqeYuHV5xnt5tvGt3 w2jtslOpNEDoLNAotHGFBQ SuH9NesKwcFz2zuTl8gMnc YtphMCI5Zzd6BA1bhp87rn g6dUkpCXJzvvwoCzM5GXjp HTBpztfbWGp6EOytLVHsoR X4EUHoeJDbT9LvUZZgSH4p jac6JGH5ZFkdVDHrRhX6QT TufBLzOANkoBfaUQuik290 IVQ3LfZwXQ7tM0Ldc1V9aS 9maXRcZGVmdGFiNzIwXGZv jk8fuDUiXNmhv0KqJZZ4ai P9nOBiwEUsCSUhZB70Mdxt q3PsXcoxMRI7IMObygDue1 Uzu8ljWzCtabKeX9dtQ8Cw ZHJoZWFkXHBnYnJkcmZvb3 Vfi9QhqTFjxYf8e9zkTOOn FYSdxDnra0rvYBP0BQFyS4 K9nRQvh2tnNProDPMcyQW5 nuS2THNotTIrO2XocW1nPX GnBL0zawo7d2hbXNG9GJqp VITbCeF8xvW3UKNbzGPxXF HabMeuLUsrl739CSW8XnTl CPExw7BpQ9EvnBzlI53vyS uxE64vCOAbcPojuB4vaRcb hD0jWcUbKjLuXFnfqHgnbC UgvktsFOweptM3QGnfwcvs NASfIDdaJ0geFxIdSXXzcW tgODxth2YyKBXoUEYvNrsh fdQ4GSuqYC79XIteqHPme1 xhr3NhY4rhjDxfgCL1WK5v CWVfVVPuPJqxz8QhsI0rpN JrYLScbjB2gQPypD52QZVh fuI6RTVjm37ug1DmgZtzok McEFVzXCcquqEmUTMcl5Tq OHHrMICcGH98ygTlD7CqoG WfHJYtdaCiKSoswF9ai2z3 KCsaWl2jGTlnk0YfnKVmnF XhiVO5WOAdh5YzSqMmgyTu mJBkjxDuZL3wGRWvfQXbkh BwLSU0XSPrNNHWUiAlGNRx m0TcJO4yXZVzkMlfHNTmmU 0bl7FvJSDen49sZHLcYECJ REEgaGFzIGRldGVybWluZW QgdGhhdCBzdWNoIGNsZWFy DW1ySBZosvQlzOLyd2SexS PwuiDro3LziaVbLENzKUC9 UdZZtFHnOCL0FCS8khUrfk CoeAOtGRNgt7EaX2lpeyca GDiqqNGpuO2fHJYzFI3hJV App7UdENBea9NfQxYaamJo NUKaIEFdHMZntQ92DGS0mS xunRqjoyLfKH8kDNLbsiDy OHGaRYQgbI7tXPdbozNiOJ HppuG6k4H1RLenFCXqirWl FgtzSCE0lbUtZAZlg6TpIA ycX5jhR86ilQpjaIc3wFS2 NTK2dV0iVLGmUPByPALhDK BDbGluaWNhbCBMYWJvcmF0 c2S1IKglwEEhsoDkPV65UA ChLQ5icGAilBWuj8UeWFd0 MI5rABsiOYEuucDhr4vlVT Fnj5olPVJshb7zklbzpZRa qdJpR7Gszbh0lC9trLXjGR Epbc64YIS9RkMrPM8suJhc PUFaFH6hDEWmB6fudP9luu t0SpLcj2kqpRKiPJRhuYGj ZxWuGTWyZRUst7dzDPUolG FuZzEwMzNcZnRuYmpcdWMx TNNiLaCit6err119vWTll8 geSSCiVkO2vQTzTIUhD59l UVCIW728UOWqZFehx0lpy3 SdXYStgZXgz9P5AGHUVRtp YJEKJTl2qLziK05ma5J0Tg rkU4nvWHHdZWUhE7CdWC1o XVZfIaa1KAT5VVX0DSVoTQ J1GQwbRXIgDUEaHaq0LAF1 IDtccmVkMTQzXGdyZWVuMT NtUBCueWWeDRXnS1pqBRVl IBogRGDrFLvqmGBfNBI2wT jll7V5wTVytXCgnZqnOvOi LzWuLiKNm8OmISi6sZeyD3 JmITQvQiD7eSPmHPKrRCok FISoRKHohtX7kZ25ZTnrxo Z1aMPar8Gam31lv755yL0u dMVzQJA6BYQlOGBouPZkUV DtZDF3RXJeePUxG8ahOFAh ND4lsxqgBCqwMNsfXGKswR D1KGJjlSWsS2ByYFAaCDgb TYOsyhe1DdKoJc9xbIYrnJ xrELlpy2tus5vycXDrAzh8 OTKoEtBjWaekTDaje5Ohh8 yhPSBgqb9lHOH7qGBfxRma i3A9sNJiIIUtiLKfnsKtFS WkDpA2CAnyXQ3fey85CSAc IJR0rh8ruLSjvSmdvmHuuR TlVThpS4SbMSLvg991YNJv J8DvENUtk3U0qpXxPnQbVF IhkAM4weB3LBZrKAr1lJDq pcE9pdJkpFQoT7nvaZ9hQU UuJH9xatavt6sdHHdcQVas NMQkzHC3jzL8BKEawWKbN9 JdnT0dBMImZBbbGZNxcab0 KoApBg7kiHExzLsgWAgqKs twYWdlXHBnbmNvbnRccGdu ZGVjXHBsYWluXHBsYWluXG EfTBEmDaXpqQmupChtfJ4x OdWxCwJlVBbwYT0fYYRtA4 flqWOsQQOxGDDaA8jtWzSm kP3xeDrgGLsaIeOmRdOaAB hnIEStSKX8YDHsaonbKZjk W55ypX5jME29IMazlwHnLU Abp3XxEXQpGMXiTTvpZMLu tsHrHOcyiS3bf3q3AFqsIn 5bUOEnghviRGZ5KrFiOM53 YmxldHJlZSBBdmUsIENvbH VtYnVzLCBPaGlvIDQzMjI5 NlVQnMGyv0Ugp6DnBbIucM XptZ3qtZalwzK3OLBbfDKj Cr0goRWxDifwgFSipbesJX edduO3JDbqhlhkCCBoEWro F4hdGgJeFMSgpEcpBYsow1 PgGFRzHHPdQ6inneO0GQmt qVZzZFUpcw72aL== [employer] [facility] [employer] Work Phone: Microscopic description Johnny ([employer]) b2ztoZYeDJUhtMGAMOHpZU NdMP2uwVdmuEp1zZgkWCTp pvQ7nKGfDEuqw2fzAVM8g2 sskdVNOihvVRVjEA6vVDwv CQOfCN0wIuTjCVWbJcAvSM BhcGVydzEyMjQwXHBhcGVy kCF2SLTnHW9ficafFQkaUW bfOVWsosW2BIJgbCVjJ7Ed USFxYZ8jftkzACH2UKESAn diIj8xdUAdmODINegbUaDb ZmNoYXJzZXQwXGZuaWwgQX WqZJu1pM3Gu2zoJbvfL3qh yvHguGPbLo7mwMPEKDteZK PPOAw2sR9IRMWxQ6MkWX5Q f3ouUBGhgBVoGSE4BEfqf2 ftVHklROM1ZKAdOZKoQZOo RC4QLiWkCYZpWhF6CLPzSv Y9LZj3UMFKEQOoMOz3IAEx FNh7WXc4QZglenbyQCm7OK NeMTetyGAmXW9oxXhbQdle zJbuh3HhtSWqIVHsIMvkzN QgNTEwMDIgXFxkYiBPVlIg PlNmSwXgBIdtXkLtCGw8CC ywH5WGCPGcYZS9BMToAbP0 GxH0GCx8BIJAZu9aObo0Vw F2ENF0DUJ0CNGtJUNsVIXw MiBcXHNzIDMgXFxmbCBcXG 0lhMmcDDNmOV7PGPZoUHca ZGMlCMVuYdGzWP9yM4Pwzx FvXMLpz9OlV3ssLPTJQKwJ QUwgRVBJRFVSQUwgVFVNT1 IgLSBQRVJNOlxwYXIgDQpc cGFyZCANClxwbGFpblxmMV yrfxUuLCIoJUhjSWx0auBo OSOmJvWxUMVpV75bl4DUb7 OxXN6PSFq4qmYjyjkfeK9t XHJpbjAgDQpcZjFcZnMyMC KNIFKoqRSeQYLonhCsi9Jd YWxpbiBsYWJlbGVkIHdpdG ggdGhlIHBhdGllbnQncyBu LZ2uOOBvADOut3IbeyEzZT TixPV8zfMgHJR9gC1uVlRu cyBhIDIgeCAxLjUgeCAwLj AzR27yLYgjpuLjLILgNO8g JR82bBMfbIqzQDAoBDepWG 96ogCpTjApKWCzLhCkg20g rnXsS1TrDYFtGnKkmOwiz4 VlLiAgVGhlIHNwZWNpbWVu SNgaAPI8By0cbNSyNRNqgj HhyxFzaGErfrVptQ6zt3Rr CVSxAW6lFBUaPtubCNTvPM fgr9RkUJygaQyiKTBlLtBi ICrgDLLpEKisBQUfX13uk8 KUl5Cyi6dcsYfwp9CdjZPa UE52SRVstIUrHGU8IE5xtA xwYXIgDQpccGFyZCANClxm YkfadaNfOJ7MlS== [facility] Work Phone: Pathology report final diagnosis Narrative b6intDQzOQAipYNcVZTvUR uyvfWhZUYngDPqQ9Srfbtq OLmfKF1rUB9lnGdkdIJmpO TsLWHjNwZzz1yog119nHTi n6bnMJEFgnyojAs8qVrpE7 5rt6Q0UyrtM6eiAOJjVDmf YWFrTApbeTPoKMr6VMMzuO VydzEyMjQwXHBhcGVyaDE1 GODuAA2kelibWOipWKjzNO OjioT6CJAyhRYrR9OyWWFf MC0wygefXNN6YTmkUEMbHV H8DiAdELXjl9Aqpqi3JgJt mXl8v4gfFNGhHYYwcAonj6 zkODT5CYRbpMUcF5wvaT6z UGPwKM2xajxxu9xcQSuwPF yoERIlrBV6daD7TGSirCRv X2ZbfM5qWJKnOXRqdvAdyH hvNwH5QKgpcBFypmtzOsAk V7CxbxFvRMEkaRV8aaFvQD 0hd2E3DZEankZbHR6tO5Cr vYXoeoOlyEYmO9VyWTtetU kge95tHYTbnTdwhpFdcLiz e01mTZHwasFyNR2kF5PnCC 5vdGUuXHBhclxwYXJccGFy YZJzLxHtWi50GHmukVPjXM Fpa7QjgYLhb46ydGT2uyZa LqVgvqVmiPKkkSVac9XqiT lcz7AhPXFzGRLnoUpoVC51 mCcmF41lu9graSfsMeSdEp OcaJBwpAClH7PwmDYgi9g9 oBJavKkwlMJqjRCiBVM2nL Bbqy5sDFoynPUxf4Zfeg17 tDZpi6Kue3UtpX8rQMBnoy Ldbs4cFGC9yQBcVRHiOHQ2 FUTnPSOeaeBap7ltVOUiw7 leyDblk47cEYXxgLnvgiKt F5Fukyp5vIL8zUCaRMOVQA D6CZpboOcxcPJoSK9nxM3q elCyrHZpBMRbGHRUB3uue9 XjeQ4udoexYAZNoiVysIxo pYXzT2TuwPLxUH4sRLUkCZ LHWPKxs0c2tMOmPZVvRPUn YSBjZWxscyBhcmUgcHJlc2 PrmK7oYV7on3TtERO6oICl I1AuhHHhUKClDD0jC8A4uZ ZlIGZvciBDRDIwLCBDRDMs XGH5wO8wCITlnUcuZPLLQZ 7TMGJzFAD8rG6qNEMarTag FGFIOWV2DwBhJR6xmXHgJB TvVFaTUbR0UUQeuV7alBCg bYz4n2abXTQoGSIjmYOhcM 7cdpHcwZ8vXLDzfBHhVNDt PL5yQBJtMWQqKWOpsxIha1 KoaxPti0t3yXMdXEsjjDZz DJIaw0YtpCM0XYQxsGdbp2 1zDVWwgJazwwXgoKdly95o ICBEaWZmZXJlbnRpYWwgZG xyP01ki9leTVuqI9n1NZFc wQLnpPobeQWkaCecdI9sMD 1tYOXdG84nlkVlGEHpj29q k7f2uNMciHbfvXSsuQKbyR 2iqC3fteWnxuKcqSxjMAV4 FYNiYFPxanwmZCUjH9LwAT EfXNBxNIG3XCVwh7Cmq03y XJPfdOugoD3siOM5KKhkWJ 71rnWrtg33pEdgv7yyOHAl lyC5dgGpHDDjfy5= [facility] Work Phone: Service comment (Unsp spec) [Interp] j5qbiKDaQODji6mhYTGvfK FuZzEwMzNcZnRuYmpcdWMx FMljjsGeNVtyx4EaH6SmXy AwMFxhbnNpXGRlZmxhbmcx ULRpSYU7vaUzNUPrHFkqIS BfTFwuAk6itJNgyIbpBiCj HFZrn4tscdAKxgausBr8g3 kmSZScNtJ6uVExYInyV9sj snQdrHGtLOYxKSi9kA67LY SauE5snMVmREjxhjGiRbX8 FZxeZYQaBsG8WANxbGQjRS AcR6uhGETvTSjbKEHlTNvc kDHbVHB5rVduw1D5eNDnqJ YlzBwyNqIrPnNgGlJIk0Ur RKb9cGcrE3DnNJOoViZ1wP QgUGFyYWdyYXBoIEZvbnQ7 gW48FYetvlO1yTRkj9Dlt4 2rv167dP2xhDUiVPZ0ICAd WBEcjISuQTRoLRA4PWZepF ZmC7ysJFQzOG1tnjhyAZmv GZswTACcaKS7ZVWlnLQvJ1 NjPZPsYEaqJWQxfti6JxDv Mq5qiUUxoMtwNGjxr1dqt5 bknBRsKja8RWPaYeJpBwpt ZFpgt2Ltp2pdCVBaop2eXH T9vOAgfGkvi8O1sMRgECBa nJJcpmDuIPBiRzG8OXxoKC 7tbs68KTSmHGF1du7qqPAh dYzijtDezWIgXCkaY6QyGX Ehv206BNHlQ3VvBPHrv7T5 xeVdUpBaJLJjfZF7jnH3CO OtGRf0gZQewhM9oaHvkCKs S5nkeG2cKZFeAO4wangqy7 wbEJotAXevUOGhtOR2pyK7 RKIyqEKwJ4JiuZ7kTCYfXT foJNQeaff4FvIoYa6zuQMk eTcyMFxzYmtwYWdlXHBnbm NvbnRccGduZGVjXHBsYWlu XHBsYWluXGYwXGZzMjRccW xdjEgdpL5sXnYbBwRaFIse JE1eDRAgL3itiNMiNZRvDK VsA5dsMwUetR0ozHdhXAti czIwIEZpbmFsIERpYWdub3 PxhzA4VWLctsP7pEU4SJVo IHVilS8dFNhrgDOyTCUaEG S4gURthQCaXWPuswG3yCOs PZDgss57 [facility] Phone: [facility] Phone: Basic metabolic 2000 panelon 11-15-2022 Anion gap [Moles/Vol] 4 mmol/L Low 6-18 [facility] Comment on above: Performed By: #### 2 4321-2 ####[address] [address] Calcium [Mass/Vol] 8.6 mg/dL Low 8.9-10.3 [facility] Comment on above: Performed By: #### 2 4321-2 ####[facility] [id number] [place] [address] Chloride [Moles/Vol] 100 mmol/L Normal 98-107 [facility] Comment on above: Performed By: #### 2 4321-2 ####[address] [address] CO2 [Moles/Vol] 29 mmol/L Normal 22-32 [facility] Comment on above: Performed By: #### 2 4321-2 ####[facility] [id number] [place] [address] Creatinine [Mass/Vol] 0.64 mg/dL Normal 0.60-1.30 [facility] Comment on above: Performed By: #### 2 4321-2 ####[facility] [id number] [place] [address] GFR/1.73 sq M.predicted among non-blacks MDRD (S/P/Bld) [Vol rate/Area] 105 mL/min/{1.73_m2} Normal >=60 [facility] Comment on above: Result Comment: Rere ctive July 05, 2022, calculation based on the?Chronic Kidney Disease Epidemiology Collaboration (CKD-EPI) equation refit?without adjustment for race. Performed By: #### 2 4321-2 ####[address] [address] Glucose [Mass/Vol] 148 mg/dL High 70-99 [facility] Comment on above: Performed By: #### 2 4321-2 ####[address] [address] Potassium [Moles/Vol] 4.3 mmol/L Normal 3.6-5.1 [facility] Comment on above: Performed By: #### 2 4321-2 ####[address] [address] Sodium [Moles/Vol] 133 mmol/L Low 136-145 [facility] Comment on above: Performed By: #### 2 4321-2 ####[address] [address] Urea nitrogen [Mass/Vol] 26 mg/dL High 8-20 [facility] Comment on above: Performed By: #### 2 4321-2 ####[address] [address] Urea nitrogen/Creatinine [Mass ratio] 40.6 mg/mg High 12.0-20.0 [facility] Comment on above: Performed By: #### 2 4321-2 ####[address] [address] Anion gap [Moles/Vol] 4 mmol/L Low 6 - 18 [facility] Calcium [Mass/Vol] 8.6 mg/dL Low 8.9 - 10. 3 mg/dL [facility] Chloride [Moles/Vol] 100 mmol/L 98 - 10 7 mmol/L [facility] CO2 [Moles/Vol] 29 mmol/L 22 - 32 mmol/L [facility] Creatinine [Mass/Vol] 0.64 mg/dL 0.60 - 1.30 mg/dL [facility] GFR/1.73 sq M.predicted among non-blacks MDRD (S/P/Bld) [Vol rate/Area] 105 mL/min/{1.73_m2} - PINF [facility] Comment on above: Effective July 05, 2022, calculation based on the Chronic Kidney Disease Epidemiology Collaboration (CKD-EPI) equation refit without adjustment for race. Glucose [Mass/Vol] 148 mg/dL High 70 - 99 mg/dL [facility] Interpretation and review of laboratory results Abnormal [facility] Potassium [Moles/Vol] 4.3 mmol/L 3.6 - 5.1 mmol/L [facility] Sodium [Moles/Vol] 133 mmol/L Low 136 - 145 mmol/L [facility] Urea nitrogen [Mass/Vol] 26 mg/dL High 8 - 20 mg/dL [facility] Urea nitrogen/Creatinine [Mass ratio] 40.6 mg/mg High 12.0 - 20.0 [facility] Hemogram and platelets WO di fferential panel (Bld)on 11-15-2022 Erythrocyte distribution width (RBC) [Ratio] 13.1 % Normal 11.0-14.8 [facility] Comment on above: Performed By: #### 2 4317-0 ####[facility] [id number] [place] [address] Hematocrit (Bld) [Volume fraction] 31.2 % Low 39.0-49.0 [facility] Comment on above: Performed By: #### 2 4317-0 ####[facility] [id number] [place] [address] Hemoglobin (Bld) [Mass/Vol] 10.7 g/dL Low 13.5-17.5 [facility] Comment on above: Performed By: #### 2 4317-0 ####[address] [address] MCH 31.4 pcg Normal 27.0-34.0 [facility] Comment on above: Performed By: #### 2 4317-0 ####[address] [address] MCHC (RBC) [Mass/Vol] 34.3 g/dL Normal 30.8-35.3 [facility] Comment on above: Performed By: #### 2 4317-0 ####[address] [address] MCV (RBC) [Entitic vol] 91.5 fL Normal 80.0-97.0 [facility] Comment on above: Performed By: #### 2 4317-0 ####[address] [address] Platelet mean volume (Bld) [Entitic vol] 10.4 fL Normal 6.2-12.1 [facility] Comment on above: Performed By: #### 2 4317-0 ####[address] [address] Platelets (Bld) [#/Vol] 204 10*3/uL Normal 142-424 [facility] Comment on above: Performed By: #### 2 4317-0 ####[address] [address] RBC (Bld) [#/Vol] 3.41 10*6/uL Low 4.30-5.70 [facility] Comment on above: Performed By: #### 2 4317-0 ####[facility] [id number] [place] [address] WBC (Bld) [#/Vol] 7.7 10*3/uL Normal 4.6-10.2 [facility] Comment on above: Performed By: #### 2 4317-0 ####[facility] ([facility] [id number] [place] [address] Erythrocyte distribution width (RBC) [Ratio] 13.1 % 11.0 - 14.8 % [facility] Hematocrit (Bld) [Volume fraction] 31.2 % Low 39.0 - 49.0 % [facility] Hemoglobin (Bld) [Mass/Vol] 10.7 g/dL Low 13.5 - 17.5 g/dL [facility] Interpretation and review of laboratory results Abnormal [facility] MCH (RBC) [Entitic mass] 31.4 pg [facility] MCHC (RBC) [Mass/Vol] 34.3 g/dL 30.8 - 35.3 g/dL [facility] MCV (RBC) [Entitic vol] 91.5 fL T [facility] Platelet mean volume (Bld) [Entitic vol] 10.4 fL [facility] Platelets (Bld) [#/Vol] 204 10*3/uL [facility] RBC (Bld) [#/Vol] 3.41 10*6/uL Low [facility] WBC (Bld) [#/Vol] 7.7 10*3/uL [facility]in [facility] XR ABDOMEN 1 VIEWon 11-15-19 23 XR ABDOMEN 1 VIEW EXAMINATION TYPE: XR [...] Self Edit Transcribed Date: 11/15/2022 00:06 Normal [facility] XR Abdomen Single viewon Addendum by [...] By: Self Edit Transcribed Date: 11/15/2022 00:06 [facility] No bowel dilatation. A large amount of colonic stool is noted. -------- FINAL REPORT -------- Dictated By: Andrey Perkins Dictated Date: 11/15/2022 00:06 Assigned Physician: Andrey Perkins Reviewed and Electronically Signed By: Andrey Perkins Signed Date: 11/15/2022 00:09 Workstation ID: [id number] Transcribed By: Self Edit Transcribed Date: 11/15/2022 00:06 POWERSCRIBE EXAMINATION TYPE: XR ABDOMEN 1 VIEW [...] By: Self Edit Transcribed Date: 11/15/2022 00:06 [employer] XR Abdomen Single viewOrdere d By: Andrey Perkins on 11-15-2022 [employer] Work Phone: XR Abdomen Single viewon Radiology Study observation (narrative) [employer] Immunoglobulin light chains. kappa.free/Immunoglobulin light chains.lambda (S) [Mass ratio]on 11-13-2022 Immunoglobulin light chains.kappa.free Nephelometry (S) [Mass/Vol] 20.87 mg/dL High 0.33 - 1.94 mg/dL [employer] Immunoglobulin light chains.kappa.free/Immuno globulin light chains.lambda.free Nephelometry (S) [Mass ratio] 24.27 High 0.26 - 1.65 [employer] Comment on above: Test performed at [facility], [address] [place] [id number] Alba Bee MD, PhD - House Principal Immunoglobulin light chains.lambda.free Nephelometry (S) [Mass/Vol] 0.86 mg/dL 0.57 - 2.63 mg/dL [employer] Interpretation and review of laboratory results Abnormal [facility] CT Thoracic Spine wo Contras ton 11-12-2022 [...] By: Self Edit Transcribed Date: 11/12/2022 00:[address] [facility] [address] Thoracic Spine wo Contras tOrdered By: Marlo Ness on 11-12-2022 [employer] Work Phone: Immunoglobulin light chains. kappa.free/Immunoglobulin light chains.lambda (S) [Mass ratio]on 11-12-2022 [place] Free Light Chain 20.87 mg/dL High 0.33-1.94 M [facility] Comment on above: Performed By: #### 4 0844-3 ####ANITHA [address] [place] [address] [place]/Lambda FLC Ratio 24.27 High 0.26-1.65 [facility] Comment on above: Result Comment: Test performed at [facility], [address] [place] [address] Alba Bee MD, PhD - House Principal Performed By: #### 4 0844-3 ####ANITHA [id number] [place] [address] Lambda Free Light Chain 0.86 mg/dL Normal 0.57-2.63 M [facility] Comment on above: Performed By: #### 4 0844-3 ####NITHINE [id number] [place] [address] Immunoglobulin light chains.kappa.free Nephelometry (S) [Mass/Vol] 137.41 mg/dL High 0.33 - 1.94 mg/dL [facility] Immunoglobulin light chains.kappa.free/Immuno globulin light chains.lambda.free Nephelometry (S) [Mass ratio] 114.51 High 0.26 - 1.65 [place] [facility] Comment on above: Test performed at [facility], [address] [place] [address] Alba Bee MD, PhD - House Principal Immunoglobulin light chains.lambda.free Nephelometry (S) [Mass/Vol] 1.2 mg/dL 0.57 - 2.63 mg/dL [employer] Interpretation and review of laboratory results Abnormal [employer] Protein Fractions Immunofixa tion (U) [Interp]on 11-12-2022 Interpretation and review of laboratory results Abnormal [employer] Interpretation Immunofixation (U) [Interp] Free [place] monoclonal (Bence Avendaño) protein is present. Alberto Claros M.D. [employer] Protein (U) [Mass/Vol] 116 mg/dL High NINF - 10 mg/dL [facility] CT THORACIC SPINE WO CONTRAS Ton [...] Self Edit Transcribed Date: 11/12/2022 00:30 Normal [facility] CT Thoracic Spine wo Contras ton 11-11-2022 Radiology Study observation (narrative) [facility] Comprehensive metabolic 2000 panelon 11-11-2022 Albumin [Mass/Vol] 3.7 g/dL Normal 3.5-4.8 [facility] Comment on above: Performed By: #### 2 4323-8 ####[facility] ([facility]) [facility] [id number] [place] [address] ALP [Catalytic activity/Vol] 51 U/L Normal 32-91 [facility] Comment on above: Performed By: #### 2 4323-8 ####[facility] [id number] [place] [address] ALT [Catalytic activity/Vol] 18 U/L Normal 7-52 [facility] Comment on above: Performed By: #### 2 4323-8 ####[facility] [id number] [place] [address] Anion gap [Moles/Vol] 9 mmol/L Normal 6-18 [facility] Comment on above: Performed By: #### 2 4323-8 ####[address] [address] AST [Catalytic activity/Vol] 25 U/L Normal 15-41 [facility] Comment on above: Performed By: #### 2 432-8 ####[address] [address] Bilirubin [Mass/Vol] 0.6 mg/dL Normal 0.3-1.2 [facility] Comment on above: Performed By: #### 2 4323-8 ####[facility] [id number] [place] [address] Calcium [Mass/Vol] 9.7 mg/dL Normal 8.9-10.3 [facility] Comment on above: Performed By: #### 2 4323-8 ####[facility] [id number] [place] [address] Chloride [Moles/Vol] 104 mmol/L Normal 98-107 [facility] Comment on above: Performed By: #### 2 4323-8 ####[facility] [id number] [place] [address] CO2 [Moles/Vol] 24 mmol/L Normal 22-32 [facility] Comment on above: Performed By: #### 2 4323-8 ####[address] [address] Creatinine [Mass/Vol] 1.18 mg/dL Normal 0.60-1.30 [facility] Comment on above: Performed By: #### 2 4323-8 ####[address] [address] GFR/1.73 sq M.predicted among non-blacks MDRD (S/P/Bld) [Vol rate/Area] 68 mL/min/{1.73_m2} Normal >=60 [facility] Comment on above: Result Comment: Effe ctive July 05, 2022, calculation based on the?Chronic Kidney Disease Epidemiology Collaboration (CKD-EPI) equation refit?without adjustment for race. Performed By: #### 2 4323-8 ####[address] [address] Glucose [Mass/Vol] 149 mg/dL High 70-99 [facility] Comment on above: Performed By: #### 2 4323-8 ####[address] [address] Potassium [Moles/Vol] 4.0 mmol/L Normal 3.6-5.1 [facility] Comment on above: Performed By: #### 2 4323-8 ####[address] [address] Protein [Mass/Vol] 6.8 g/dL Normal 6.1-7.9 [facility] Comment on above: Performed By: #### 2 4323-8 ####[address] [address] Sodium [Moles/Vol] 137 mmol/L Normal 136-145 [facility] Comment on above: Performed By: #### 2 4323-8 ####[facility] [id number] [place] [address] Urea nitrogen [Mass/Vol] 29 mg/dL High 8-20 [facility] Comment on above: Performed By: #### 2 4323-8 ####[facility] [id number] [place] [address] Urea nitrogen/Creatinine [Mass ratio] 24.6 mg/mg High 12.0-20.0 [facility] Comment on above: Performed By: #### 2 4323-8 ####[facility] [id number] [place] [address] Albumin [Mass/Vol] 3.7 g/dL 3.5 - 4.8 g/dL [facility] ALP [Catalytic activity/Vol] 51 U/L [facility] ALT [Catalytic activity/Vol] 18 U/L [facility] Anion gap [Moles/Vol] 9 mmol/L 6 - 18 [facility] AST [Catalytic activity/Vol] 25 U/L Kristin [facility] Bilirubin [Mass/Vol] 0.6 mg/dL 0.3 - 1 .2 mg/dL [facility] Calcium [Mass/Vol] 9.7 mg/dL 8.9 - 10. 3 mg/dL [facility] Chloride [Moles/Vol] 104 mmol/L 98 - 10 7 mmol/L [facility] CO2 [Moles/Vol] 24 mmol/L 22 - 32 mmol/L [facility] Creatinine [Mass/Vol] 1.18 mg/dL 0.60 - 1.30 mg/dL [facility] GFR/1.73 sq M.predicted among non-blacks MDRD (S/P/Bld) [Vol rate/Area] 68 mL/min/{1.73_m2} - PINF [facility] Comment on above: Effective July 05, 2022, calculation based on the Chronic Kidney Disease Epidemiology Collaboration (CKD-EPI) equation refit without adjustment for race. Glucose [Mass/Vol] 149 mg/dL High 70 - 99 mg/dL [facility] Interpretation and review of laboratory results Abnormal [facility] Potassium [Moles/Vol] 4.0 mmol/L 3.6 - 5.1 mmol/L [facility] Protein [Mass/Vol] 6.8 g/dL 6.1 - 7.9 g/dL [facility] Sodium [Moles/Vol] 137 mmol/L 136 - 145 mmol/L [facility] Urea nitrogen [Mass/Vol] 29 mg/dL High 8 - 20 mg/dL [facility] Urea nitrogen/Creatinine [Mass ratio] 24.6 mg/mg High 12.0 - 20.0 [facility] Glucose Auto test strip (Bld ) [Mass/Vol]on 11-11-2022 Glucose [Mass/Vol] 151 mg/dL High 70-99 [facility] Comment on above: Performed By: #### 2 340-8 #### [facility] LAB [address] [place] [address] Glucose [Mass/Vol] 151 mg/dL High 70 - 99 mg/dL [facility] Interpretation and review of laboratory results Abnormal [facility] Hemogram and platelets WO di fferential panel (Bld)on 11-11-2022 Basophils (Bld) [#/Vol] 0.00 10*3/uL Normal 0.00-0.20 [facility] Comment on above: Performed By: #### 2 4317-0 ####[facility] [id number] [place] [address] Basophils/100 WBC (Bld) 0.0 % Normal 0.0-2.0 [facility] Comment on above: Performed By: #### 2 4317-0 ####[facility] [id number] [place] [address] Eosinophils (Bld) [#/Vol] 0.01 10*3/uL Normal 0.00-0.70 [facility] Comment on above: Performed By: #### 2 4317-0 ####[address] [address] Eosinophils/100 WBC (Bld) 0.1 % Normal 0.0-7.0 [facility] Comment on above: Performed By: #### 2 4317-0 ####[address] [address] Erythrocyte distribution width (RBC) [Ratio] 13.7 % Normal 11.0-14.8 [facility] Comment on above: Performed By: #### 2 4317-0 ####[address] [address] Hematocrit (Bld) [Volume fraction] 34.5 % Low 39.0-49.0 [facility] Comment on above: Performed By: #### 2 4317-0 ####[address] [address] Hemoglobin (Bld) [Mass/Vol] 11.5 g/dL Low 13.5-17.5 [facility] Comment on above: Performed By: #### 2 4317-0 ####[address] [address] Immature granulocytes (Bld) [#/Vol] 0.04 10*3/uL Normal [facility] Comment on above: Performed By: #### 2 4317-0 ####[address] [address] Immature granulocytes/100 WBC (Bld) 0.6 % Normal 0.0-1.2 [facility] Comment on above: Performed By: #### 2 4317-0 ####[address] [address] Lymphocytes (Bld) [#/Vol] 0.58 10*3/uL Low 1.00-4.80 [facility] Comment on above: Performed By: #### 2 4317-0 ####[address] [address] Lymphocytes/100 WBC (Bld) 8.5 % Low 17.9-49.6 [facility] Comment on above: Performed By: #### 2 4317-0 ####[address] [address] MCH 30.9 pcg Normal 27.0-34.0 [facility] Comment on above: Performed By: #### 2 4317-0 ####[address] [address] MCHC (RBC) [Mass/Vol] 33.3 g/dL Normal 30.8-35.3 [facility] Comment on above: Performed By: #### 2 4317-0 ####[address] [address] MCV (RBC) [Entitic vol] 92.7 fL Normal 80.0-97.0 M [facility] Comment on above: Performed By: #### 2 4317-0 ####[address] [address] Monocytes (Bld) [#/Vol] 0.05 10*3/uL Normal 0.00-0.90 [facility] Comment on above: Performed By: #### 2 4317-0 ####[address] [address] Monocytes/100 WBC (Bld) 0.7 % Normal 0.0-12.0 M [facility] Comment on above: Performed By: #### 2 4317-0 ####[address] [address] Neutrophils Absolute 6.17 K/mcL Normal 1.80-7.70 [facility] Comment on above: Performed By: #### 2 4317-0 ####[address] [address] Neutrophils/100 WBC (Bld) 90.1 % High 38.1-75.5 [facility] Comment on above: Performed By: #### 2 4317-0 ####[address] [address] Platelet mean volume (Bld) [Entitic vol] 10.4 fL Normal 6.2-12.1 [facility] Comment on above: Performed By: #### 2 4317-0 ####[address] [address] Platelets (Bld) [#/Vol] 197 10*3/uL Normal 142-424 [facility] Comment on above: Performed By: #### 2 4317-0 ####[address] [address] RBC (Bld) [#/Vol] 3.72 10*6/uL Low 4.30-5.70 [facility] Comment on above: Performed By: #### 2 4317-0 ####[address] [address] WBC (Bld) [#/Vol] 6.9 10*3/uL Normal 4.6-10.2 [facility] Comment on above: Performed By: #### 2 4317-0 ####[address] [place] [address] Basophils (Bld) [#/Vol] 0.00 10*3/uL [facility] [...] results Abnormal [facility] Lymphocytes (Bld) [#/Vol] 0.58 10*3/uL Low [...] [facility] Platelets (Bld) [#/Vol] 197 10*3/uL [facility] RBC (Bld) [#/Vol] 3.72 10*6/uL Low [facility] WBC (Bld) [#/Vol] 6.9 10*3/uL [facility] [employer] Immunofixation electrophores is serumOrdered By: Alberto Claros [...] recommended if clinically indicated. Alberto Claros M.D. 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 - See note. [...] with the patient's name and spinal epidural tumor" is a 2 x 1.5 x 0.5 cm aggregate of multiple fragments of red-brown ragged soft tissue. The specimen is submitted entirely in blocks A1 and A2. (AB) Any immunohistochemistry or special stain used in the interpretation of this case was performed at [facility]. These tests have not [...] was performed at [facility], [address] [place] [address]. Microscopic examination was performed. Normal [facility] Comment on above: Performed By: #### 1 1526-1 ####[facility] [id number] [place], [place] [address]CRY [facility] [id number] [place] [address] Platelet function (closure t saul) Johnny (Bld) [Interp]on 11-11-2022 Epinephrine Aggregation 97 sec Normal 69-173 M [facility] Comment on above: Order Comment: A quita telet count of less than 150,000 or a hematocrit of less than 35% canbe associated with abnormal results even with normal functioning platelets.Normal results with a low platelet count or hematocrit do however, suggestnormal functioning platelets. Result Comment: Resu lts consistent with normal Platelet function. Performed By: #### 4 9836-0 ####[facility] [id number] [place] [address] Platelet function (closure t saul) Johnny (Bld) [Interp]Ordered By: Tonia Bell on 11-11-2022 Interpretation and review of laboratory results Normal [employer] Platelet aggregation EPINEPHrine induced Ql (PRP) 97 [employer] Comment on above: Results consistent w ith normal Platelet function. A platelet count of less than 150,000 or a hematocrit of less than 35% can be associated with abnormal results even with normal functioning platelets. Normal results with a low platelet count or hematocrit do however, suggest normal functioning platelets. [employer] Protein Fractions Elph [Inte rp]on 11-11-2022 Albumin [Mass/Vol] 4.3 g/dL 3.5 - 5.0 g/dL [employer] Albumin in CSF/Albumin in Serum or Plasma (S/P+CSF) [Relative ratio] 61 % [employer] Alpha 2 globulin (U) [Mass/Vol] 0.9 g/dL 0.5 - 0.9 g/dL [facility] Beta globulin+Gamma globulin Elph [Mass/Vol] 0.9 g/dL 0.6 - 1.3 g/dL [facility] Beta lactoglobulin IgG (S) [Mass/Vol] 0.7 g/dL 0.5 - 1.0 g/dL [facility] CD18 cells actual/normal (Bld) [Rel units/Vol] 10 % [facility] CD3+TCR alpha beta+ cells/100 cells (Bld) 4 % [facility] Gamma butyrobetaine/Trimethyll ysine (DBS) [Molar ratio] 13 % [facility] Interpretation and review of laboratory results Abnormal [facility] Lactalbumin alpha IgG (S) [Mass/Vol] 0.3 g/dL High 0.1 - 0.2 g/dL [facility] Protein [Mass/Vol] 7.1 g/dL 6.1 - 7.9 g/dL [facility] Protein Fractions [Interp] Possible monoclonal gammopathy or pseudo-monoclonal gammopathy. An atypical electrophoretic band is identified which may represent a true "M-spike" as seen in multiple myeloma, other lymphoproliferative diseases, or benign monoclonal gammopathy. It could also be a [id number]-jxpvu mimicking a monoclonal band. Recommend urine immunofixation now and a repeat serum immunofixation after an interval of time to further evaluate this patient. Alberto Claros M.D. [facility] t(11;22)(p13;q12.2)(WT1, EWSR1) cells/Cells.total Molgen (Bld/Tiss) 13 % [facility] Protein Fractions Immunofixa tion (U) [Interp]on 11-11-2022 Immunofixation Electrophoresis, Urine Normal [facility] Comment on above: Result Comment: Free [place] monoclonal (Bence Avendaño) protein is present. Alberto Claros M.D. Performed By: #### 1 4896-5 ####[facility] ([facility]) [id number] [place] [address] Protein (U) [Mass/Vol] 116 mg/dL High <=10 Mo [facility] Comment on above: Performed By: #### 1 4896-5 ####[facility] ([facility]) [id number] [facility] [place] [address] XR FLUORO UP TO 1 HOUR (STAT ISTICS)(NO REPORT)on 11-11-2022 XR FLUORO UP TO 1 HOUR (STATISTICS)(NO REPORT) This order has been auto-finalized and does not contain a result. Normal [facility] XR Fluoro Up To 1 Hour [...] above similar to prior. 3. Please see chipping machine operator report. -------- FINAL REPORT -------- Dictated By: Brendan Painting Dictated Date: 11/11/2022 18:54 Assigned Physician: Brendan Painting Reviewed and Electronically Signed By: Brendan Painting Signed Date: 11/11/2022 19:04 Workstation ID: [id number] Transcribed By: Self Edit Transcribed Date: 11/11/2022 18:54 Normal [facility] XR Thoracic Spine Complete 4 + Viewson 11-11-2022 1. Patient is undergoing thoracic spine surgery. 2. Pathologic compression fractures as described above similar to prior. 3. Please see chipping machine operator report. -------- FINAL REPORT -------- [...] above similar to prior. 3. Please see chipping machine operator report. -------- FINAL REPORT -------- Dictated By: Brendan Painting Dictated Date: 11/11/2022 18:54 Assigned Physician: Brendan Painting Reviewed and Electronically Signed By: Brendan Painting Signed Date: 11/11/2022 19:04 Workstation ID: [id number] Transcribed By: Self Edit Transcribed Date: 11/11/2022 18:54 [employer] Radiology Study observation (narrative) [employer] XR Thoracic Spine Complete 4 + ViewsOrdered By: Brendan Painting on 11-11-2022 [employer] Work Phone: Basic metabolic 2000 panelon 11-10-2022 CK [Catalytic activity/Vol] 484 U/L High 21-232 [facility] Comment on above: Performed By: #### 2 4321-2 #### [facility] ([facility]) HOSPITAL LAB [address] [place] [address] Anion gap [Moles/Vol] 17 mmol/L 6 - 18 [facility] [email or web address] Calcium [Mass/Vol] 10.9 mg/dL High 8.9 - 10. 3 mg/dL [employer] Chloride [Moles/Vol] 98 mmol/L 98 - 10 7 mmol/L [employer] CO2 [Moles/Vol] 21 mmol/L Low 22 - 32 mmol/L [employer] Creatinine [Mass/Vol] 1.54 mg/dL High 0.60 - 1.30 mg/dL [employer] GFR/1.73 sq M.predicted among non-blacks MDRD (S/P/Bld) [Vol rate/Area] 50 mL/min/{1.73_m2} Low - PINF [employer] Comment on above: Effective July 05, 2022, calculation based on the Chronic Kidney Disease Epidemiology Collaboration (CKD-EPI) equation refit without adjustment for race. Glucose [Mass/Vol] 105 mg/dL High 70 - 99 mg/dL [employer] Interpretation and review of laboratory results Abnormal [employer] Potassium [Moles/Vol] 3.9 mmol/L 3.6 - 5.1 mmol/L [employer] Sodium [Moles/Vol] 136 mmol/L 136 - 145 mmol/L [facility] Urea nitrogen [Mass/Vol] 36 mg/dL High 8 - 20 mg/dL [facility] Urea nitrogen/Creatinine [Mass ratio] 23.4 mg/mg High 12.0 - 20.0 [facility] Blood type and Indirect anti body screen panel (Bld)on 11-10-2022 ABO group Nom (Bld) AB Normal [facility] Comment on above: Performed By: #### 3 4532-2 ####[facility] [id number] [place] [address] Rh Type Positive Normal [facility] Comment on above: Performed By: #### 3 4532-2 ####[facility] [id number] [place] [address] ABO group Nom (Bld) AB [facility] Blood group antibody screen Ql Negative [facility] Rh Nom (Bld) Positive [facility] C-reactive proteinon 023 CRP [Mass/Vol] 13.2 mg/dL High 0.0 - 1.0 mg/dL [facility] CBC W Ordered Manual Differe ntial panel (Bld)on 11-10-2022 Sed Rate 85 mm/hr High 0-15 [facility] Comment on above: Performed By: #### 5 7782-5 ####[facility] [id number] [place] [address] Band form neutrophils/100 WBC (Bld) 1.0 % [facility] Bite cells LM Ql (Bld) Present Abnormal (none) [facility] Cells Counted Total (Bld) [#] 100 {cells} [facility] Echinocyte/Marcin Cells Present Present Abnormal (none) [facility] Interpretation and review of laboratory results Abnormal [facility] Lymphocytes (Bld) [#/Vol] 1.01 10*3/uL [facility] Lymphocytes/100 WBC (Bld) 10.3 % Low 17.9 - 49.6 % [facility] Monocytes (Bld) [#/Vol] 0.71 10*3/uL [employer] Monocytes/100 WBC (Bld) 7.2 % 0.0 - 12.0 % [employer] Polychromasia Present 1+ Abnormal (none) [facility] Segmented neutrophils (Bld) [#/Vol] 8.09 10*3/uL High [employer] Segmented neutrophils/100 WBC (Bld) 81.5 % High 38.1 - 75.5 % [facility] [facility] CK [Catalytic activity/Vol]o n 11-10-2022 Interpretation and review of laboratory results Abnormal [facility] [facility] CRP [Mass/Vol]on 11-10-2022 C-Reactive Protein 13.2 mg/dL High 0.0-1.0 [facility] Comment on above: Performed By: #### 1 988-5 ####[facility] ([facility] [id number] [place] [address] Interpretation and review of laboratory results Abnormal [facility] ABDOMEN PELVIS W CONTRAST on 11-10-2022 [...] Self Edit Transcribed Date: 11/10/2022 16:09 Normal [facility] CT CHEST W CONTRASTon 2022 CT [...] Self Edit Transcribed Date: 11/10/2022 16:09 Normal [facility] Creatine kinaseon 11-10-2022 CK [Catalytic activity/Vol] 484 U/L High [facility] Critical Careon 11-10-2022 Rico Bhat MD 11/10/2022 2:20 PM Critical Care Performed by: Rico Bhat MD Authorized by: Rico Bhat MD Critical care provider statement: Critical care time (minutes): 120 Critical care time was exclusive of: Separately billable procedures and treating other patients and teaching time Critical care was necessary to treat or prevent imminent or life-threatening deterioration of the following conditions: [employer] failure or compromise (Cord Compression) Critical care [...] from another provider in my specialty: yes [employer] ESR (Bld) [Velocity]on 11-10 Interpretation and review of laboratory results Abnormal [employer] Hemogram and platelets WO di fferential panel (Bld)Ordered By: Surjit Echeverria on 11-10-2022 Erythrocyte distribution width (RBC) [Ratio] 13.4 % 11.0 - 14.8 % [employer] Hematocrit (Bld) [Volume fraction] 36.4 % Low 39.0 - 49.0 % [facility] Hemoglobin (Bld) [Mass/Vol] 12.4 g/dL Low 13.5 - 17.5 g/dL [facility] Interpretation and review of laboratory results Abnormal [facility] MCH (RBC) [Entitic mass] 31.1 pg [facility] MCHC (RBC) [Mass/Vol] 34.1 g/dL 30.8 - 35.3 g/dL [facility] MCV (RBC) [Entitic vol] 91.2 fL T [facility] Platelet mean volume (Bld) [Entitic vol] 10.3 fL [facility] Platelets (Bld) [#/Vol] 198 10*3/uL [facility] RBC (Bld) [#/Vol] 3.99 10*6/uL Low [facility] WBC (Bld) [#/Vol] 9.8 10*3/uL [facility] IgA IEP Ql (S)on 11-10-2022 IgA [Mass/Vol] 180 mg/dL 66 - 436 mg/dL [facility] IgG synthesis rate Calc (S+C SF) [Mass/Time]on 11-10-2022 IgG [Mass/Vol] 1132 mg/dL 791 - 1643 mg/dL [facility] IgA [Mass/Vol] 180 mg/dL Normal 66-436 [facility] Comment on above: Performed By: #### 1 4116-8 ####[facility] ([facility]) [id number] [place] [address] IgM IEP Ql (S)on 11-10-2022 IgM [Mass/Vol] 23 mg/dL Low 43 - 279 mg/dL [facility] Interpretation and review of laboratory results Abnormal [facility] Immunoglobulin light chains. kappa.free/Immunoglobulin light chains.lambda (S) [Mass ratio]on 11-10-2022 [facility] Light Chain 137.41 mg/dL High 0.33-1.94 [facility] Comment on above: Performed By: #### 4 0844-3 ####ANITHA [id number] [place] [address] [place]/Lambda FLC Ratio 114.51 High 0.26-1.65 Mo [facility] Comment on above: Result Comment: Test performed at [facility], [address] [place] [address] Alba Bee MD, PhD - House Principal Performed By: #### 4 0844-3 ####[facility] [id number] [place] [address] [facility] Free Light Chain 1.20 mg/dL Normal 0.57-2.63 [facility] Comment on above: Performed By: #### 4 0844-3 ####[facility] [id number] [place] [address] Interpretation Immunofixatio n [Interp]on 11-10-2022 Immunofixation Result, Serum Normal [facility] Comment on above: Result Comment: Poss [...] Claros M.D. Performed By: #### 2 5700-6 ####[facility] ([facility]) [id number] [place] [address] Laboratory - [facility] Specimen source Nom (Unsp spec) Hold for add-ons. [employer] Comment on above: Auto resulted. MR CERVICAL SPINE WO AND W C [facility] 11-10-2022 MR CERVICAL SPINE WO AND [...] Castillo NP neurosurgery and documented in the [employer] system on 11/10/2022 2:28 PM, Message ID [id number]. -------- FINAL REPORT -------- Dictated By: Armand Barnes Dictated Date: 11/10/2022 14:23 Assigned Physician: Armand Barnes Reviewed and Electronically Signed By: Armand Barnes Signed Date: 11/10/2022 14:52 Workstation ID: [id number] Transcribed By: Self Edit Transcribed Date: 11/10/2022 14:23 Normal [facility] MR Cervical Spine wo and w [facility] 11-10-2022 Radiology Study observation (narrative) [facility] MR LUMBAR SPINE WO AND W [...] Castillo NP neurosurgery and documented in the [employer] system on 11/10/2022 2:28 PM, Message ID [id number]. -------- FINAL REPORT -------- Dictated By: Armand Barnes Dictated Date: 11/10/2022 14:23 Assigned Physician: Armand Barnes Reviewed and Electronically Signed By: Armand Barnes Signed Date: 11/10/2022 14:52 Workstation ID: [id number] Transcribed By: Self Edit Transcribed Date: 11/10/2022 14:23 Normal [facility] MR Lumbar Spine wo and w Con [facility] 11-10-2022 Radiology Study observation (narrative) [facility] MR THORACIC SPINE WO AND W C [facility] 11-10-2022 MR THORACIC SPINE WO AND [...] Castillo NP neurosurgery and documented in the Sc[employer] system on 11/10/2022 2:28 PM, Message ID [id number]. -------- FINAL REPORT -------- Dictated By: Armand Barnes Dictated Date: 11/10/2022 14:23 Assigned Physician: Armand Barnes Reviewed and Electronically Signed By: Armand Barnes Signed Date: 11/10/2022 14:52 Workstation ID: [id number] Transcribed By: Self Edit Transcribed Date: 11/10/2022 14:23 Normal [facility] MR Thoracic Spine wo and w C ontr[facility] 11-10-2022 Radiology Study observation (narrative) [facility] No Panel Informationon 11-10 Interpretation and review of laboratory results Normal [facility] Chest: 1. Mild mediastinal and hilar lymphadenopathy. 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 DOCUMENT ONLY finding communicated directly to Rich Castillo NP neurosurgery and documented in the [employer] system on 11/10/2022 2:28 PM, Message ID [id number]. -------- FINAL REPORT -------- Dictated By: Armand Barnes Dictated Date: 11/10/2022 14:23 Assigned Physician: Armand Barnes Reviewed and Electronically Signed By: Armand Barnes Signed Date: 11/10/2022 14:52 Workstation ID: [id number] Transcribed By: Self Edit Transcribed Date: 11/10/2022 14:23 [place] EXAMINATION TYPE: MR CERVICAL SPINE WO AND [...] foraminal narrowing. There Urinary bladder is full. POWERSCRIBE Armand Barnes DO - 11/10/2022 EXAMINATION TYPE: [...] Castillo NP neurosurgery and documented in the [employer] system on 11/10/2022 2:28 PM, Message ID [id number]. -------- FINAL REPORT -------- Dictated By: Armand Barnes Dictated Date: 11/10/2022 14:23 Assigned Physician: Armand Barnes Reviewed and Electronically Signed By: Armand Barnes Signed Date: 11/10/2022 14:52 Workstation ID: [id number] Transcribed By: Self Edit Transcribed Date: 11/10/2022 14:23 [employer] No Panel InformationOrdered By: Gildardo Sotelo on 11-10-2022 [employer] Phone: No Panel InformationOrdered By: Armand Barnes on 11-10-2022 [employer] Phone: PT Coag (PPP) [Time]on 11-10 aPTT Coag (Bld) [Time] 25.1 s Normal 23.3-35.3 Mo unt [facility] Comment on above: Performed By: #### 5 902-2 ####[facility] ([facility]) HOSPITAL [id number] [place] [address] INR Coag (PPP) [Relative time] 1.1 {INR} NINF - 5.0 [facility] Comment on above: The recommended ther apeutic INR range for most cardiac indications is 2.0-3.0 For high intensity therapy (i.e. mechanical heart valves), the recommended range is 2.5-3.5 Interpretation and review of laboratory results Abnormal [employer] PT Coag (Bld) [Time] 14.8 s High [facility] Mir Tesen Protein Fractions Elph [Inte rp]on 11-10-2022 Albumin (Rel %), Serum 61 % Normal Mo unt [facility] Comment on above: Performed By: #### 1 2851-2 ####[facility] ([facility]) [id number] [place] [address] Albumin [Mass/Vol] 4.3 g/dL Normal 3.5-5.0 [facility] Comment on above: Performed By: #### 1 2851-2 ####[facility] ([facility]) [id number] [place] [address] Alpha 1 Globulin (g/dL) 0.3 g/dL High 0.1-0.2 M ount [facility] Comment on above: Performed By: #### 1 2851-2 ####[facility] ([facility]) [id number] [place] [address] Alpha 1 Globulin Rel % 4 % Normal Mo unt [facility] Comment on above: Performed By: #### 1 2851-2 ####[facility] ([facility]) [id number] [place] [address] Alpha 2 Globulin (g/dL) 0.9 g/dL Normal 0.5-0.9 M ount [facility] Comment on above: Performed By: #### 1 2851-2 ####[facility] [place] [facility] [id number] [place] [address] Alpha 2 Globulin (Rel %) 13 % Normal [facility] Comment on above: Performed By: #### 1 2851-2 ####[facility] [place] [facility] [id number] [place] [address] Beta (g/dL) 0.7 g/dL Normal 0.5-1.0 [facility] Comment on above: Performed By: #### 1 2851-2 ####[facility] [place] ([facility]) [id number] [place] [address] Beta Rel % 10 % Normal [facility] Comment on above: Performed By: #### 1 2851-2 ####[facility] [place] ([facility]) [id number] [place] [address] Gamma Globulin (g/dL) 0.9 g/dL Normal 0.6-1.3 [facility] Comment on above: Performed By: #### 1 2851-2 ####[facility] [place] [facility] [id number] [place] [address] Gamma Globulin Rel % 13 % [facility] Comment on above: Performed By: #### 1 2851-2 ####[facility] [place] [facility] [id number] [place] [address] Protein [Mass/Vol] 7.1 g/dL Normal 6.1-7.9 [facility] Comment on above: Performed By: #### 1 2851-2 ####[facility] [place] [facility] [id number] [place] [address] SPEP Interpretation Normal [facility] Comment on above: Result Comment: Poss ible monoclonal gammopathy or pseudo-monoclonal gammopathy. An atypical electrophoretic band is identified which may represent a true "M-spike" as seen in multiple myeloma, other lymphoproliferative diseases, or benign monoclonal gammopathy. It could also be a patoug-A-tdhqp mimicking a monoclonal band. Recommend urine immunofixation now and a repeat serum immunofixation after an interval of time to further evaluate this patient. Alberto Claros M.D. Performed By: #### 1 2851-2 ####[facility] ([facility]) [id number] [place] [address] SARS-CoV-2 (COVID-19) RNA NA A+probe Ql (Resp)on 11-10-2022 Interpretation and review of laboratory results Normal [facility] SARS-CoV-2 (COVID-19) RdRp gene GARTH+probe Ql (Resp) Not detected Not Detected [facility] SARS-CoV-2 RNA Resp Ql GARTH+p robeon 11-10-2022 SARS-CoV-2 (COVID-19) RNA GARTH+probe Ql (Resp) Not detected Normal Not Detected [facility] Comment on above: Performed By: #### 9 4500-6 #### [facility] LAB [address] [place] [address] Sedimentation rateon 023 ESR (Bld) [Velocity] 85 mm/h High [facility] Urinalysis dipstick W Reflex Culture panel (U)on 11-10-2022 Bacteria, Urine Rare Abnormal None [facility] Comment on above: Performed By: #### 5 7019-2 ####[facility] [id number] [place] [address] Bilirubin, Urine Negative Normal Negative [facility] Comment on above: Performed By: #### 5 7019-2 ####[facility] [id number] [place] [address] Blood, Urine 1+ Abnormal Negative [facility] Comment on above: Performed By: #### 5 7019-2 ####[facility] [id number] [place] [address] Clarity (U) Hazy Abnormal Clear [facility] Comment on above: Performed By: #### 5 7019-2 ####[facility] [id number] [place] [address] Color (U) Yellow Normal Yellow [facility] Comment on above: Performed By: #### 5 7019-2 ####[facility] [id number] [place] [address] Glucose Ql (U) Normal Normal Normal [facility] Comment on above: Performed By: #### 5 7019-2 ####[facility] [id number] [place] [address] Hyaline Casts, Urine 3 /LPF High None [facility] Comment on above: Performed By: #### 5 7019-2 ####[facility] [id number] [place] [address] Ketones Ql (U) 20 mg/dL Abnormal Negative [facility] Comment on above: Performed By: #### 5 7019-2 ####[facility] [id number] [place] [address] Leukocytes, Urine Negative Normal Negative [facility] Comment on above: Performed By: #### 5 7019-2 ####[facility] [id number] [place] [address] Mucus, UA Rare Abnormal None [facility] Comment on above: Performed By: #### 5 7019-2 ####[facility] [id number] [place] [address] Nitrite, Urine Negative Normal Negative [facility] Comment on above: Performed By: #### 5 7019-2 ####[address] [address] pH (U) 5.0 [pH] Normal 5.0-8.0 [facility] Comment on above: Performed By: #### 5 7019-2 ####[address] [address] Protein (U) [Mass/Vol] 30 mg/dL Abnormal Negative Mo [facility] Comment on above: Performed By: #### 5 7019-2 ####[address] [address] RBC LM.HPF (Urine sed) [#/Area] 1 /[HPF] Normal 0-5 [facility] Comment on above: Performed By: #### 5 7019-2 ####[address] [address] Specific [place] Urine 1.014 Normal 1.002-1.030 [facility] Comment on above: Performed By: #### 5 7019-2 ####[address] [address] Urobilinogen, Urine Normal Normal Normal [facility] Comment on above: Performed By: #### 5 7019-2 ####[address] [address] WBC LM.HPF (Urine sed) [#/Area] 20 /[HPF] High 0-5 [facility] Comment on above: Performed By: #### 5 7019-2 ####[address] [address] Bacteria LM.HPF (Urine sed) [#/Area] Rare Abnormal None /HPF [facility] Bilirubin Ql (U) Negative Negative mg/dL [facility] Casts LM.LPF (Urine sed) [#/Area] 3 /[LPF] High None /LPF [facility] Clarity (U) Hazy Abnormal Clear [facility] Color (U) Yellow Yellow [facility] Glucose Ql (U) Normal Normal mg/dL [facility] Hemoglobin Ql (U) 1+ Abnormal Negative [facility] Interpretation and review of laboratory results Abnormal [facility] Ketones (U) [Mass/Vol] 20 mg/dL Abnormal Negative [facility] Leukocyte esterase Test strip Ql (U) Negative Negative WBCs/mcL [facility] Mucus Ql (Urine sed) Rare Abnormal None /LPF [facility] Nitrite Ql (U) Negative Negative [facility] pH (U) 5.0 [pH] 5.0 - 8.0 pH [facility] Protein (U) [Mass/Vol] 30 mg/dL Abnormal Negative [facility] RBC LM.HPF (Urine sed) [#/Area] 1 /[HPF] [facility] Specific gravity (U) [Rel density] 1.014 1.002 - 1.030 [facility] Urobilinogen (U) [Mass/Vol] Normal Normal mg/dL [facility] WBC LM.HPF (Urine sed) [#/Area] 20 /[HPF] High [facility] aPTT Coag (Bld) [Time]on aPTT Coag (PPP) [Time] 25.1 s [facility] Interpretation and review of laboratory results Normal [facility] No Panel Informationon 08-21 1. Early glenohumera [...] By: Self Edit Transcribed Date: 08/21/2022 10:09 [employer] LendingCRIBE EXAMINATION TYPE: XR SHOULDER 2+ VIEWS LEFT [...] By: Self Edit Transcribed Date: 08/21/2022 10:09 [employer] Radiology Study observation (narrative) [employer] No Panel InformationOrdered By: Brendan Painting on 08-21-2022 [employer] Work Phone: XR SHOULDER 2+ VIEWS LEFTon [...] Self Edit Transcribed Date: 08/21/2022 10:09 Normal [facility] Hemogram and platelets WO di fferential panel (Bld)on 08-14-2022 Basophils (Bld) [#/Vol] 0.07 10*3/uL Normal 0.00-0.20 [facility] Comment on above: Performed By: #### 2 4317-0 #### [facility] LAB [address] [place] [address] Basophils/100 WBC (Bld) 1.1 % Normal 0.0-2.0 [facility] Comment on above: Performed By: #### 2 4317-0 #### [facility] LAB [address] [place] [address] Eosinophils (Bld) [#/Vol] 0.27 10*3/uL Normal 0.00-0.70 [facility] Comment on above: Performed By: #### 2 4317-0 #### [facility] LAB [address] [place] [address] Eosinophils/100 WBC (Bld) 4.4 % Normal 0.0-7.0 [facility] Comment on above: Performed By: #### 2 4317-0 #### [facility] LAB [address] [place] [address] Erythrocyte distribution width (RBC) [Ratio] 13.0 % Normal 11.0-14.8 [facility] Comment on above: Performed By: #### 2 4317-0 #### [facility] ([facility]) LAB [address] [place] [address] Hematocrit (Bld) [Volume fraction] 43.0 % Normal 39.0-49.0 [facility] Comment on above: Performed By: #### 2 4317-0 #### [facility] ([facility]) LAB [address] [place] [address] Hemoglobin (Bld) [Mass/Vol] 13.8 g/dL Normal 13.5-17.5 [facility] Comment on above: Performed By: #### 2 4317-0 #### [facility] ([facility]) LAB [address] [place] [address] Immature granulocytes (Bld) [#/Vol] 0.02 10*3/uL Normal 0.00-0.10 [facility] Comment on above: Performed By: #### 2 4317-0 #### [facility] ([facility]) LAB [address] [place] [address] Immature granulocytes/100 WBC (Bld) 0.3 % Normal 0.0-1.2 [facility] Comment on above: Performed By: #### 2 4317-0 #### [facility] ([facility]) LAB [address] [place] [address] Lymphocytes (Bld) [#/Vol] 2.37 10*3/uL Normal 1.00-4.80 [facility] Comment on above: Performed By: #### 2 4317-0 #### [facility] ([facility]) LAB [address] [place] [address] Lymphocytes/100 WBC (Bld) 38.7 % Normal 17.9-49.6 [facility] Comment on above: Performed By: #### 2 4317-0 #### [facility] ([facility]) LAB [address] [place] [address] MCH 29.8 pcg Normal 27.0-34.0 [facility] Comment on above: Performed By: #### 2 4317-0 #### [facility] [place] [facility] LAB [address] [place] [address] MCHC (RBC) [Mass/Vol] 32.1 g/dL Normal 30.8-35.3 [facility] Comment on above: Performed By: #### 2 4317-0 #### [facility] [place] [facility] LAB [address] [place] [address] MCV (RBC) [Entitic vol] 92.9 fL Normal 80.0-97.0 M [facility] Comment on above: Performed By: #### 2 4317-0 #### [facility] [place] ([facility]) LAB [address] [place] [address] Monocytes (Bld) [#/Vol] 0.51 10*3/uL Normal 0.00-0.90 [facility] Comment on above: Performed By: #### 2 4317-0 #### [facility] [place] ([facility]) LAB [address] [place] [address] Monocytes/100 WBC (Bld) 8.3 % Normal 0.0-12.0 M [facility] Comment on above: Performed By: #### 2 4317-0 #### [facility] [place] ([facility]) LAB [address] [place] [address] Neutrophils Absolute 2.89 K/mcL Normal 1.80-7.70 [facility] Comment on above: Performed By: #### 2 4317-0 #### [facility] [place] [facility] LAB [address] [place] [address] Neutrophils/100 WBC (Bld) 47.2 % Normal 38.1-75.5 [facility] Comment on above: Performed By: #### 2 4317-0 #### [facility] [place] [facility] LAB [address] [place] [address] Platelet mean volume (Bld) [Entitic vol] 10.9 fL Normal 6.2-12.1 [facility] Comment on above: Performed By: #### 2 4317-0 #### [facility] [place] [facility] LAB [address] [place] [address] Platelets (Bld) [#/Vol] 245 10*3/uL Normal 142-424 [facility] Comment on above: Performed By: #### 2 4317-0 #### [facility] [place] [facility] [address] [facility] [place] [address] RBC (Bld) [#/Vol] 4.63 10*6/uL Normal 4.30-5.70 [facility] Comment on above: Performed By: #### 2 4317-0 #### [facility] [place] [facility] LAB [address] [place] [address] WBC (Bld) [#/Vol] 6.1 10*3/uL Normal 4.6-10.2 [facility] Comment on above: Performed By: #### 2 4317-0 #### [facility] [place] [facility] LAB [address] [place] [address] [facility]20[facility] Cholesterol [Mass/Vol] 135 mg/dL Normal <200 Mo [facility] Comment on above: Performed By: #### 3 016-3 #### [facility] [place] [facility] [address] [place] [address] Cholesterol in HDL [Mass/Vol] 43 mg/dL Normal >=40 [facility] Comment on above: Performed By: #### 3 016-3 #### [facility] [place] [facility] [address] [place] [address] Cholesterol in LDL [Mass/Vol] 73 mg/dL Normal <100 [facility] Comment on above: Performed By: #### 3 016-3 #### [facility] [place] [facility] [address] [place] [address] Triglyceride [Mass/Vol] 96 mg/dL Normal <200 [facility] Comment on above: Performed By: #### 3 016-3 #### [facility] ([facility]) LAB [address] [place] [address] VLDL Cholesterol James 19.2 mg/dL Normal 2-38 [facility] Comment on above: Performed By: #### 3 016-3 #### [facility] ([facility]) LAB [address] [place] [address] No Panel Informationon 05-07 Cervical spine: No [...] By: Self Edit Transcribed Date: 05/07/2022 15:10 Kristin Mir Tesen Radiology Study observation (narrative) [employer] No Panel InformationOrdered By: Katrik Woodward on 05-07-2022 [employer] Work Phone: XR CERVICAL SPINE 4-5 VIEWSo [...] Self Edit Transcribed Date: 05/07/2022 15:10 Normal [facility] XR THORACIC SPINE 2 VIEWSon 05-07-2022 [...] Self Edit Transcribed Date: 05/07/2022 15:10 Normal [facility] ECG 12 lead ([employer])Ordered By: Nati Rodarte on 01-29-2022 [facility] T4 (Thyroxine) Freeon 2020 Free T4 [Mass/Vol] 0.9 Nanogram/dL Normal 0.6-1.6 [facility] Comment on above: Performed By: #### 3 024-7, 3016-3 #### [facility] [address] [place] [address] TSH Qnon 01-22-2021 TSH Qn (Bld) 2.94 mcIU/mL Normal 0.45-5.33 [facility] Comment on above: Performed By: #### 3 024-7, 3016-3 #### [facility] [address] [place] [address] Lipid panel with direct LDLo n 07-25-2020 Cholesterol [Mass/Vol] 157 mg/dL Normal <200 [facility] Comment on above: Result Comment: Refe r to the National Cholesterol Education Program ATP III cut offs for risk stratification. Performed By: #### 3 024-7, 53944-7, 3016-3 #### [facility] [address] [place] [address] [id number] Cholesterol in HDL [Mass/Vol] 38 mg/dL Low >40 [facility] Comment on above: Performed By: #### 3 024-7, 64920-5, 6-3 #### [facility] [address] [place] [address] [id number] Cholesterol in LDL [Mass/Vol] 99 mg/dL Normal <100 [facility] Comment on above: Performed By: #### 3 024-7, 71616-1, 3016-3 #### [facility] [address] [place] [address] [phone] Cholesterol in VLDL [Mass/Vol] 20 mg/dL Normal 2-38 [facility] Comment on above: Performed By: #### 3 024-7, 20896-6, 3016-3 #### [facility] [address] [place] [address] [phone] Triglyceride [Mass/Vol] 102 mg/dL Normal <200 M [facility] Comment on above: Performed By: #### 3 024-7, 36344-3, 6-3 #### [facility] [address] [place] [address] [id number] T4 (Thyroxine) Freeon 2019 Free T4 [Mass/Vol] 1.0 Nanogram/dL Normal 0.6-1.6 M [facility] Comment on above: Performed By: #### 3 024-7, 06727-3, 3015-3 #### [facility] [address] [place] [address] [id number] TSH Qnon 07-25-2020 TSH Qn (Bld) 6.42 mcIU/mL High 0.45-5.33 [facility] Comment on above: Performed By: #### 3 024-7, 07952-4, 6-3 #### [facility] [address] [place] [address]1000 Vital Signs Date Time Vital Sign Value Performing Clinician Facility 06-28-2025 13:55-0400 Body height 165.[address] Blade Milner DO Work Phone: [facility] 06-28-2025 13:55-0400 Body mass index (BMI) [Ratio] 29.9 kg/m2 Dr. Blade Milner DO Work Phone: [facility] 06-28-2025 13:55-0400 Body temperature 99.2 [degF] Dr. Blade Milner DO Work Phone: [facility] 06-28-2025 13:55-0400 Body weight 81.[address] Blade Milner DO Work Phone: [facility] 06-28-2025 13:55-0400 Diastolic blood pressure 72 mm[Hg] Dr. Blade Milner DO Work Phone: [facility] 06-28-2025 13:55-0400 Heart rate 51 /min Dr. Blade Milner DO Work Phone: [facility] 06-28-2025 13:55-0400 Respiratory rate 16 /min Dr. Blade Milner DO Work Phone: [facility] 06-28-2025 13:55-0400 SaO2% (BldA) [Mass fraction] 99 % Dr. Blade Milner DO Work Phone: [facility] 06-28-2025 13:55-0400 Systolic blood pressure 124 mm[Hg] Dr. Blade Milner DO Work Phone: [facility] 05-31-2025 14:00-0400 Body height 165.[address] Blade Milner DO Work Phone: [facility] 05-31-2025 14:00-0400 Body mass index (BMI) [Ratio] 30.1 kg/m2 Dr. Blade Milner DO Work Phone: [facility] 05-31-2025 14:00-0400 Body temperature 99.4 [degF] Dr. Blade Milner DO Work Phone: [facility] 05-31-2025 14:00-0400 Body weight 82.[address] Blade Milner DO Work Phone: [facility] 05-31-2025 14:00-0400 Diastolic blood pressure 73 mm[Hg] Dr. Blade Milner DO Work Phone: [facility] 05-31-2025 14:00-0400 Heart rate 59 /min Dr. Blade Milner DO Work Phone: [facility] 05-31-2025 14:00-0400 Respiratory rate 16 /min Dr. Blade Milner DO Work Phone: [facility] 05-31-2025 14:00-0400 SaO2% (BldA) [Mass fraction] 97 % Dr. Blade Milner DO Work Phone: [facility] 05-31-2025 14:00-0400 Systolic blood pressure 130 mm[Hg] Dr. Blade Milner DO Work Phone: [facility] 05-10-2025 13:31-0400 Body height 165.[address] Blade Milner DO Work Phone: [facility] 05-10-2025 13:31-0400 Body temperature 98.6 [degF] Dr. Blade Milner DO Work Phone: [facility] 05-10-2025 13:31-0400 Diastolic blood pressure 60 mm[Hg] Dr. Blade Milner DO Work Phone: [facility] 05-10-2025 13:31-0400 Heart rate 58 /min Dr. Blade Milner DO Work Phone: [facility] 05-10-2025 13:31-0400 Respiratory rate 18 /min Dr. Blade Milner DO Work Phone: [facility] 05-10-2025 13:31-0400 SaO2% (BldA) [Mass fraction] 94 % Dr. Blade Milner DO Work Phone: [facility] 05-10-2025 13:31-0400 Systolic blood pressure 138 mm[Hg] Dr. Blade Milner DO Work Phone: [facility] 05-02-2025 16:02-0400 Body temperature 97.9 [degF] Dr. Blade Milner DO Work Phone: [facility] 05-02-2025 16:02-0400 Diastolic blood pressure 57 mm[Hg] Dr. Blade Milner DO Work Phone: [facility] 05-02-2025 16:02-0400 Heart rate 54 /min Dr. Blade Milner DO Work Phone: [facility] 05-02-2025 16:02-0400 Respiratory rate 16 /min Dr. Blade Milner DO Work Phone: [facility] 05-02-2025 16:02-0400 SaO2% (BldA) [Mass fraction] 100 % Dr. Blade Milner DO Work Phone: [facility] 05-02-2025 16:02-0400 Systolic blood pressure 105 mm[Hg] Dr. Blade Milner DO Work Phone: [facility] 05-02-2025 14:00-0400 Body height 165.[address] Blade Milner DO Work Phone: [facility] 05-02-2025 14:00-0400 Body mass index (BMI) [Ratio] 30.4 kg/m2 Dr. Blade Milner DO Work Phone: [facility] 05-02-2025 14:00-0400 Body temperature 99 [degF] Dr. Blade Milner DO Work Phone: [facility] 05-02-2025 14:00-0400 Body weight [address] Blade Milner DO Work Phone: [facility] 05-02-2025 14:00-0400 Diastolic blood pressure 67 mm[Hg] Dr. Blade Milner DO Work Phone: [facility] 05-02-2025 14:00-0400 Heart rate 47 /min Dr. Blade Milner DO Work Phone: [facility] 05-02-2025 14:00-0400 Respiratory rate 18 /min Dr. Blade Milner DO Work Phone: [facility] 05-02-2025 14:00-0400 SaO2% (BldA) [Mass fraction] 97 % Dr. Blade Milner DO Work Phone: [facility] 05-02-2025 14:00-0400 Systolic blood pressure 117 mm[Hg] Dr. Blade Milner DO Work Phone: [facility] 04-05-2025 13:15-0400 Body height 165.[address] Blade Milner DO Work Phone: [facility] 04-05-2025 13:15-0400 Body mass index (BMI) [Ratio] 30.9 kg/m2 Dr. Blade Milner DO Work Phone: [facility] 04-05-2025 13:15-0400 Body temperature 98 [degF] Dr. Blade Milner DO Work Phone: [facility] 04-05-2025 13:15-0400 Body weight 84.[address] Blade Milner DO Work Phone: [facility] 04-05-2025 13:15-0400 Diastolic blood pressure 68 mm[Hg] Dr. Blade Milner DO Work Phone: [facility] 04-05-2025 13:15-0400 Heart rate 58 /min Dr. Blade Milner DO Work Phone: [facility] 04-05-2025 13:15-0400 Respiratory rate 16 /min Dr. Blade Milner DO Work Phone: [facility] 04-05-2025 13:15-0400 SaO2% (BldA) [Mass fraction] 93 % Dr. Blade Milner DO Work Phone: [facility] 04-05-2025 13:15-0400 Systolic blood pressure 114 mm[Hg] Dr. Blade Milner DO Work Phone: [facility] 03-16-2025 11:07-0400 Body height 160 cm Gisel Wolf MD Work Phone: [facility] 03-16-2025 11:07-0400 Body mass index (BMI) [Ratio] 33.37 kg/m2 Gisel Wolf MD Work Phone: [facility] 03-16-2025 11:07-0400 Body temperature 98.1 [degF] Gisel Wolf MD Work Phone: [facility] 03-16-2025 11:07-0400 Body weight 85.46 kg Gisel Wolf MD Work Phone: [facility] 03-16-2025 11:07-0400 Diastolic blood pressure 69 mm[Hg] Gisel Wolf MD Work Phone: [facility] 03-16-2025 11:07-0400 Heart rate 51 /min Gisel Wolf MD Work Phone: [facility] 03-16-2025 11:07-0400 Respiratory rate 18 /min Gisel Wolf MD Work Phone: [facility] 03-16-2025 11:07-0400 SaO2% (BldA) [Mass fraction] 97 % Gisel Wolf MD Work Phone: [facility] 03-16-2025 11:07-0400 Systolic blood pressure 134 mm[Hg] Gisel Wolf MD Work Phone: [facility] 03-08-2025 14:08-0400 Body height 165.[address] Blade Milner DO Work Phone: [facility] 03-08-2025 14:08-0400 Body mass index (BMI) [Ratio] 29.3 kg/m2 Dr. lBade Milner DO Work Phone: [facility] 03-08-2025 14:08-0400 Body temperature 98.8 [degF] Dr. Blade Milner DO Work Phone: [facility] 03-08-2025 14:08-0400 Body weight 79.[address] Blade Milner DO Work Phone: [facility] 03-08-2025 14:08-0400 Diastolic blood pressure 65 mm[Hg] Dr. Blade Milner DO Work Phone: [facility] 03-08-2025 14:08-0400 Heart rate 46 /min Dr. Blade Milner DO Work Phone: [facility] 03-08-2025 14:08-0400 Respiratory rate 18 /min Dr. Blade Milner DO Work Phone: [facility] 03-08-2025 14:08-0400 SaO2% (BldA) [Mass fraction] 98 % Dr. Blade Milner DO Work Phone: [facility] 03-08-2025 14:08-0400 Systolic blood pressure 115 mm[Hg] Dr. Blade Milner DO Work Phone: [facility] 02-01-2025 15:36-0400 Body temperature 97.8 [degF] Dr. Blade Milner DO Work Phone: [facility] 02-01-2025 15:36-0400 Diastolic blood pressure 66 mm[Hg] Dr. Blade Milner DO Work Phone: [facility] 02-01-2025 15:36-0400 Heart rate 59 /min Dr. Blade Milner DO Work Phone: [facility] 02-01-2025 15:36-0400 Respiratory rate 16 /min Dr. Blade Milner DO Work Phone: [facility] 02-01-2025 15:36-0400 SaO2% (BldA) [Mass fraction] 97 % Dr. Blade Milner DO Work Phone: [facility] 02-01-2025 15:36-0400 Systolic blood pressure 117 mm[Hg] Dr. Blade Milner DO Work Phone: [facility] 02-01-2025 13:37-0400 Body height 165.[address] Blade Milner DO Work Phone: [facility] 02-01-2025 13:37-0400 Body mass index (BMI) [Ratio] 31.8 kg/m2 Dr. Blade Milner DO Work Phone: [facility] 02-01-2025 13:37-0400 Body temperature 98.6 [degF] Dr. Blade Milner DO Work Phone: [facility] 02-01-2025 13:37-0400 Body weight 86.[address] Blade Milner DO Work Phone: [facility] 02-01-2025 13:37-0400 Diastolic blood pressure 71 mm[Hg] Dr. Blade Milner DO Work Phone: [facility] 02-01-2025 13:37-0400 Heart rate 52 /min Dr. Blade Milner DO Work Phone: [facility] 02-01-2025 13:37-0400 Respiratory rate 16 /min Dr. Blade Milner DO Work Phone: [facility] 02-01-2025 13:37-0400 SaO2% (BldA) [Mass fraction] 97 % Dr. Blade Milner DO Work Phone: [facility] 02-01-2025 13:37-0400 Systolic blood pressure 116 mm[Hg] Dr. Blade Milner DO Work Phone: [facility] 01-31-2025 19:15-0400 Body temperature 97.4 [degF] Dr. Blade Milner DO Work Phone: [facility] 01-31-2025 19:15-0400 Diastolic blood pressure 80 mm[Hg] Dr. Blade Milner DO Work Phone: [facility] 01-31-2025 19:15-0400 Heart rate 75 /min Dr. Blade Milner DO Work Phone: [facility] 01-31-2025 19:15-0400 Respiratory rate 15 /min Dr. Blade Milner DO Work Phone: [facility] 01-31-2025 19:15-0400 SaO2% (BldA) [Mass fraction] 98 % Dr. Blade Milner DO Work Phone: [facility] 01-31-2025 19:15-0400 Systolic blood pressure 145 mm[Hg] Dr. Blade Milner DO Work Phone: [facility] 01-31-2025 16:57-0400 Body mass index (BMI) [Ratio] 32.1 kg/m2 Dr. Blade Milner DO Work Phone: [facility] 01-31-2025 16:57-0400 Body weight 87.[address] Blade Milner DO Work Phone: [facility] 01-31-2025 16:06-0400 Body height 165.[address] Blade iMlner DO Work Phone: [facility] 01-04-2025 13:51-0400 Body height 165.[address] Blade Milner DO Work Phone: [facility] 01-04-2025 13:51-0400 Body mass index (BMI) [Ratio] 29.5 kg/m2 Dr. Blade Milner DO Work Phone: [facility] 01-04-2025 13:51-0400 Body temperature 96 [degF] Dr. Blade Milner DO Work Phone: [facility] 01-04-2025 13:51-0400 Body weight 80.[address] Blade Milner DO Work Phone: [facility] 01-04-2025 13:51-0400 Diastolic blood pressure 72 mm[Hg] Dr. Blade Milner DO Work Phone: [facility] 01-04-2025 13:51-0400 Heart rate 57 /min Dr. Blade Milner DO Work Phone: [facility] 01-04-2025 13:51-0400 Respiratory rate 16 /min Dr. Blade Milner DO Work Phone: [facility] 01-04-2025 13:51-0400 SaO2% (BldA) [Mass fraction] 97 % Dr. Blade Milner DO Work Phone: [facility] 01-04-2025 13:51-0400 Systolic blood pressure 131 mm[Hg] Dr. Blade Milner DO Work Phone: [facility] 12-07-2024 15:14-0400 Body height 165.[address] Blade Milner DO Work Phone: [facility] 12-07-2024 15:14-0400 Body mass index (BMI) [Ratio] 31.9 kg/m2 Dr. Blade Milner DO Work Phone: [facility] 12-07-2024 15:14-0400 Body temperature 98.5 [degF] Dr. Blade Milner DO Work Phone: [facility] 12-07-2024 15:14-0400 Body weight 87.[address] Blade Milner DO Work Phone: [facility] 12-07-2024 15:14-0400 Diastolic blood pressure 73 mm[Hg] Dr. Blade Milner DO Work Phone: [facility] 12-07-2024 15:14-0400 Heart rate 64 /min Dr. Blade Milner DO Work Phone: [facility] 12-07-2024 15:14-0400 Respiratory rate 16 /min Dr. Blade Milner DO Work Phone: [facility] 12-07-2024 15:14-0400 SaO2% (BldA) [Mass fraction] 95 % Dr. Blade Milner DO Work Phone: [facility] 12-07-2024 15:14-0400 Systolic blood pressure 143 mm[Hg] Dr. Blade Milner DO Work Phone: [facility] 11-28-2024 13:48-0500 Body height 165.1 cm Ric Souza MD Work Phone: [facility] 11-28-2024 13:48-0500 Heart rate 71 /min Ric Souza MD Work Phone: [facility] 11-28-2024 13:48-0500 SaO2% (BldA) [Mass fraction] 98 % Ric Souza MD Work Phone: [facility] 11-10-2024 09:45-0500 Body height 165.1 cm Ric Souza MD Work Phone: [facility] 11-10-2024 09:45-0500 Heart rate 72 /min Ric Souza MD Work Phone: [facility] 11-10-2024 09:45-0500 SaO2% (BldA) [Mass fraction] 98 % Ric Souza MD Work Phone: [facility] 11-09-2024 15:08-0500 Body mass index (BMI) [Ratio] 31.5 kg/m2 Dr. Blade Milner DO Work Phone: [facility] 11-09-2024 15:08-0500 Body temperature 98.3 [degF] Dr. Blade Milner DO Work Phone: [facility] 11-09-2024 15:08-0500 Body weight 85.[address] Blade Milner DO Work Phone: [facility] 11-09-2024 15:08-0500 Diastolic blood pressure 74 mm[Hg] Dr. Blade Milner DO Work Phone: [facility] 11-09-2024 15:08-0500 Heart rate 58 /min Dr. Blade Milner DO Work Phone: [facility] 11-09-2024 15:08-0500 Respiratory rate 16 /min Dr. Blade Milner DO Work Phone: [facility] 11-09-2024 15:08-0500 SaO2% (BldA) [Mass fraction] 96 % Dr. Blade Milner DO Work Phone: [facility] 11-09-2024 15:08-0500 Systolic blood pressure 133 mm[Hg] Dr. Blade Milner DO Work Phone: [facility] 11-02-2024 14:01-0500 Body temperature 98.4 [degF] Dr. Blade Milner DO Work Phone: [facility] 11-02-2024 14:01-0500 Diastolic blood pressure 70 mm[Hg] Dr. Blade Milner DO Work Phone: [facility] 11-02-2024 14:01-0500 Heart rate 50 /min Dr. Blade Milner DO Work Phone: [facility] 11-02-2024 14:01-0500 Respiratory rate 18 /min Dr. Blade Milner DO Work Phone: [facility] 11-02-2024 14:01-0500 SaO2% (BldA) [Mass fraction] 97 % Dr. Blade Milner DO Work Phone: [facility] 11-02-2024 14:01-0500 Systolic blood pressure 109 mm[Hg] Dr. Blade Milner DO Work Phone: [facility] 10-12-2024 14:16-0500 Body mass index (BMI) [Ratio] 31.6 kg/m2 Dr. Blade Milner DO Work Phone: [facility] 10-12-2024 14:16-0500 Body temperature 99.6 [degF] Dr. Blade Milner DO Work Phone: [facility] 10-12-2024 14:16-0500 Body weight 86.[address] Blade Milner DO Work Phone: [facility] 10-12-2024 14:16-0500 Diastolic blood pressure 68 mm[Hg] Dr. Blade Milner DO Work Phone: [facility] 10-12-2024 14:16-0500 Heart rate 60 /min Dr. Blade Milner DO Work Phone: [facility] 10-12-2024 14:16-0500 Respiratory rate 16 /min Dr. Blade Milner DO Work Phone: [facility] 10-12-2024 14:16-0500 SaO2% (BldA) [Mass fraction] 94 % Dr. Blade Milner DO Work Phone: [facility] 10-12-2024 14:16-0500 Systolic blood pressure 130 mm[Hg] Dr. Blade Milner DO Work Phone: [facility] 10-02-2024 21:49-0500 Body temperature 98 [degF] Dr. Blade Milner DO Work Phone: [facility] 10-02-2024 21:49-0500 Diastolic blood pressure 69 mm[Hg] Dr. Blade Milner DO Work Phone: [facility] 10-02-2024 21:49-0500 Heart rate 69 /min Dr. Blade Milner DO Work Phone: [facility] 10-02-2024 21:49-0500 Respiratory rate 16 /min Dr. Blade Milner DO Work Phone: [facility] 10-02-2024 21:49-0500 SaO2% (BldA) [Mass fraction] 99 % Dr. Blade Milner DO Work Phone: [facility] 10-02-2024 21:49-0500 Systolic blood pressure 113 mm[Hg] Dr. Blade Milner DO Work Phone: [facility] 09-13-2024 13:36-0500 Body mass index (BMI) [Ratio] 30.2 kg/m2 Dr. Blade Milner DO Work Phone: [facility] 09-13-2024 13:36-0500 Body temperature 98.3 [degF] Dr. Blade Milner DO Work Phone: [facility] 09-13-2024 13:36-0500 Body weight 82.[address] Blade Milner DO Work Phone: [facility] 09-13-2024 13:36-0500 Diastolic blood pressure 72 mm[Hg] Dr. Blade Milner DO Work Phone: [facility] 09-13-2024 13:36-0500 Heart rate 56 /min Dr. Blade Milner DO Work Phone: [facility] 09-13-2024 13:36-0500 Respiratory rate 16 /min Dr. Blade Milner DO Work Phone: [facility] 09-13-2024 13:36-0500 SaO2% (BldA) [Mass fraction] 95 % Dr. Blade Milner DO Work Phone: [facility] 09-13-2024 13:36-0500 Systolic blood pressure 122 mm[Hg] Dr. Blade Milner DO Work Phone: [facility] 08-31-2024 13:36-0500 Body temperature 97.2 [degF] Dr. Blade Milner DO Work Phone: [facility] 08-31-2024 13:36-0500 Diastolic blood pressure 57 mm[Hg] Dr. Blade Milner DO Work Phone: [facility] 08-31-2024 13:36-0500 Heart rate 59 /min Dr. Blade Milner DO Work Phone: [facility] 08-31-2024 13:36-0500 Respiratory rate 16 /min Dr. Blade Milner DO Work Phone: [facility] 08-31-2024 13:36-0500 SaO2% (BldA) [Mass fraction] 96 % Dr. Blade Milner DO Work Phone: [facility] 08-31-2024 13:36-0500 Systolic blood pressure 119 mm[Hg] Dr. Blade Milner DO Work Phone: [facility] 08-17-2024 09:49-0500 Body mass index (BMI) [Ratio] 28 kg/m2 Dr. Blade Milner DO Work Phone: [facility] 08-17-2024 09:49-0500 Body temperature 99 [degF] Dr. Blade Milner DO Work Phone: [facility] 08-17-2024 09:49-0500 Body weight 76.[address] Blade Milner DO Work Phone: [facility] 08-17-2024 09:49-0500 Diastolic blood pressure 61 mm[Hg] Dr. Blade Milner DO Work Phone: [facility] 08-17-2024 09:49-0500 Heart rate 51 /min Dr. Blade Milner DO Work Phone: [facility] 08-17-2024 09:49-0500 Respiratory rate 16 /min Dr. Blade Milner DO Work Phone: [facility] 08-17-2024 09:49-0500 SaO2% (BldA) [Mass fraction] 98 % Dr. Blade Milner DO Work Phone: [facility] 08-17-2024 09:49-0500 Systolic blood pressure 104 mm[Hg] Dr. Blade Milner DO Work Phone: [facility] 08-13-2024 13:18-0500 Body temperature 97.9 [degF] Dr. Blade Milner DO Work Phone: [facility] 08-13-2024 13:18-0500 Diastolic blood pressure 69 mm[Hg] Dr. Blade Milner DO Work Phone: [facility] 08-13-2024 13:18-0500 Heart rate 55 /min Dr. Blade Milner DO Work Phone: [facility] 08-13-2024 13:18-0500 Respiratory rate 14 /min Dr. Blade Milner DO Work Phone: [facility] 08-13-2024 13:18-0500 SaO2% (BldA) [Mass fraction] 98 % Dr. Blade Milner DO Work Phone: [facility] 08-13-2024 13:18-0500 Systolic blood pressure 121 mm[Hg] Dr. Blade Milner DO Work Phone: [facility] 08-09-2024 15:04-0500 Body weight 83.[address] Blade Milner DO Work Phone: [facility] 08-08-2024 09:00-0500 Body mass index (BMI) [Ratio] 30.7 kg/m2 Dr. Blade Milner DO Work Phone: [facility] 07-29-2024 14:01-0400 Inhaled oxygen flow rate 97 L/min Dr. Blade Milner DO Work Phone: [facility] 06-14-2024 13:44-0400 Body temperature 99 [degF] Mickey Alexander DO Work Phone: [facility] 06-14-2024 13:44-0400 Diastolic blood pressure 65 mm[Hg] Mickey Alexander DO Work Phone: [facility] 06-14-2024 13:44-0400 Heart rate 69 /min Mickey Alexander DO Work Phone: [facility] 06-14-2024 13:44-0400 Respiratory rate 18 /min Mickey Alexander DO Work Phone: [facility] 06-14-2024 13:44-0400 Systolic blood pressure 111 mm[Hg] Mickey Alexander DO Work Phone: [facility] 06-05-2024 10:38-0400 Body temperature 98.4 [degF] Mickey Alexander DO Work Phone: [facility] 06-05-2024 10:38-0400 Diastolic blood pressure 63 mm[Hg] Mickey Alexander DO Work Phone: [facility] 06-05-2024 10:38-0400 Heart rate 64 /min Mickey Alexander DO Work Phone: [facility] 06-05-2024 10:38-0400 Respiratory rate 18 /min Mickey Alexander DO Work Phone: [facility] 06-05-2024 10:38-0400 Systolic blood pressure 112 mm[Hg] Mickey Alexander DO Work Phone: [facility] 05-24-2024 13:15-0400 Body temperature 98.91 [degF] Mickey Alexander DO Work Phone: [facility] 05-24-2024 13:15-0400 Diastolic blood pressure 59 mm[Hg] Mickey Alexander DO Work Phone: [facility] 05-24-2024 13:15-0400 Heart rate 80 /min Mickeyeva Josephe DO Work Phone: [facility] 05-24-2024 13:15-0400 Respiratory rate 18 /min Mickey Alexander DO Work Phone: [facility] 05-24-2024 13:15-0400 Systolic blood pressure 103 mm[Hg] Mickey Alexander DO Work Phone: [facility] 05-17-2024 13:19-0400 Body temperature 97.81 [degF] Mickeyeva Josephe DO Work Phone: [facility] 05-17-2024 13:19-0400 Diastolic blood pressure 68 mm[Hg] Mickey Alexander DO Work Phone: [facility] 05-17-2024 13:19-0400 Heart rate 54 /min Mickeyeva Josephe DO Work Phone: [facility] 05-17-2024 13:19-0400 Respiratory rate 18 /min Mickeyeva Josephe DO Work Phone: [facility] 05-17-2024 13:19-0400 Systolic blood pressure 118 mm[Hg] Mickey Alexander DO Work Phone: [facility] 05-08-2024 10:42-0400 Body temperature 98.29 [degF] Leanna Osborne [employer]ESS OPERATOR - MERCHANDISING DIRECTOR Work Phone: [facility] 05-08-2024 10:42-0400 Diastolic blood pressure 59 mm[Hg] Leanna Osborne OFFSET PROOF PRESS OPERATOR - MERCHANDISING DIRECTOR Work Phone: [facility] 05-08-2024 10:42-0400 Heart rate 84 /min Leanna Osborne OFFSET PROOF PRESS OPERATOR - MERCHANDISING DIRECTOR Work Phone: [facility] 05-08-2024 10:42-0400 Respiratory rate 18 /min Leanna Osborne OFFSET PROOF PRESS OPERATOR - MERCHANDISING DIRECTOR Work Phone: [facility] 05-08-2024 10:42-0400 Systolic blood pressure 99 mm[Hg] Leanna Osborne OFFSET PROOF PRESS OPERATOR - MERCHANDISING DIRECTOR Work Phone: [facility] 05-03-2024 13:35-0400 Body temperature 98.8 [degF] Mickey Alexander DO Work Phone: [facility] 05-03-2024 13:35-0400 Diastolic blood pressure 63 mm[Hg] Mickey Alexander DO Work Phone: [facility] 05-03-2024 13:35-0400 Heart rate 60 /min Mickey Alexander DO Work Phone: [facility] 05-03-2024 13:35-0400 Respiratory rate 18 /min Mickey Alexander DO Work Phone: [facility] 05-03-2024 13:35-0400 Systolic blood pressure 104 mm[Hg] Mickey Alexander DO Work Phone: [facility] 04-26-2024 15:00-0400 Body temperature 97.11 [degF] Mickey Alexander DO Work Phone: [facility] 04-26-2024 15:00-0400 Diastolic blood pressure 51 mm[Hg] Mickey Alexander DO Work Phone: [facility] 04-26-2024 15:00-0400 Heart rate 60 /min Mickey Alexander DO Work Phone: [facility] 04-26-2024 15:00-0400 Respiratory rate 18 /min Mickey Alexander DO Work Phone: [facility] 04-26-2024 15:00-0400 Systolic blood pressure 117 mm[Hg] Mickey Alexander DO Work Phone: [facility] 04-19-2024 13:00-0400 Body temperature 98.8 [degF] Mickey Alexander DO Work Phone: [facility] 04-19-2024 13:00-0400 Diastolic blood pressure 61 mm[Hg] Mickey Alexander DO Work Phone: [facility] 04-19-2024 13:00-0400 Heart rate 56 /min Mickey Alexander DO Work Phone: [facility] 04-19-2024 13:00-0400 Respiratory rate 18 /min Mickey Munoz DO Work Phone: [facility] 04-19-2024 13:00-0400 Systolic blood pressure 102 mm[Hg] Mickey Munoz DO Work Phone: [facility] 04-12-2024 15:18-0400 Body temperature 97 [degF] Dr. Blade Milner DO Work Phone: [facility] 04-12-2024 15:18-0400 Diastolic blood pressure 58 mm[Hg] Dr. Blade Milner DO Work Phone: [facility] 04-12-2024 15:18-0400 Heart rate 57 /min Dr. Blade Milner DO Work Phone: [facility] 04-12-2024 15:18-0400 Respiratory rate 16 /min Dr. Blade Milner DO Work Phone: [facility] 04-12-2024 15:18-0400 SaO2% (BldA) [Mass fraction] 95 % Dr. Blade Milner DO Work Phone: [facility] 04-12-2024 15:18-0400 Systolic blood pressure 94 mm[Hg] Dr. Blade Milner DO Work Phone: [facility] 04-11-2024 15:10-0400 Body temperature 97.39 [degF] Alex Barrientos DPM Work Phone: [facility] 04-11-2024 15:10-0400 Diastolic blood pressure 74 mm[Hg] Alex Barrientos DPM Work Phone: [facility] 04-11-2024 15:10-0400 Heart rate 60 /min Alex Barrientos DPM Work Phone: [facility] 04-11-2024 15:10-0400 Respiratory rate 18 /min Alex Barrientos DPM Work Phone: [facility] 04-11-2024 15:10-0400 Systolic blood pressure 102 mm[Hg] Alex Barrientos DPM Work Phone: [facility] 04-07-2024 10:55-0400 Body temperature 98.2 [degF] Mickey Alexander DO Work Phone: [facility] 04-07-2024 10:55-0400 Diastolic blood pressure 65 mm[Hg] Mickey Alexander DO Work Phone: [facility] 04-07-2024 10:55-0400 Heart rate 51 /min Mickey Alexander DO Work Phone: [facility] 04-07-2024 10:55-0400 Respiratory rate 18 /min Mickey Alexander DO Work Phone: [facility] 04-07-2024 10:55-0400 Systolic blood pressure 107 mm[Hg] Mickey Alexander DO Work Phone: [facility] 04-05-2024 13:34-0400 Body temperature 98.6 [degF] Mickey Alexander DO Work Phone: [facility] 04-05-2024 13:34-0400 Diastolic blood pressure 59 mm[Hg] Mickey Alexander DO Work Phone: [facility] 04-05-2024 13:34-0400 Heart rate 54 /min Mickey Alexander DO Work Phone: [facility] 04-05-2024 13:34-0400 Respiratory rate 18 /min Mickey Alexander DO Work Phone: [facility] 04-05-2024 13:34-0400 Systolic blood pressure 98 mm[Hg] Mickey Alexander DO Work Phone: [facility] 03-29-2024 13:36-0400 Body temperature 99 [degF] Mickey Alexander DO Work Phone: [facility] 03-29-2024 13:36-0400 Diastolic blood pressure 66 mm[Hg] Mickey Alexander DO Work Phone: [facility] 03-29-2024 13:36-0400 Heart rate 57 /min Mickey Alexander DO Work Phone: [facility] 03-29-2024 13:36-0400 Respiratory rate 18 /min Mickey Munoz DO Work Phone: [facility] 03-29-2024 13:36-0400 Systolic blood pressure 108 mm[Hg] Mickey Josephe DO Work Phone: [facility] 03-22-2024 10:31-0400 Body height 165.1 cm Mickey Munoz DO Work Phone: [facility] 03-22-2024 10:31-0400 Body mass index (BMI) [Ratio] 28.96 kg/m2 Mickey Munoz DO Work Phone: [facility] 03-22-2024 10:31-0400 Body temperature 98.6 [degF] Mickey Munoz DO Work Phone: [facility] 03-22-2024 10:31-0400 Body weight 78.93 kg Mickey Munoz DO Work Phone: [facility] 03-22-2024 10:31-0400 Diastolic blood pressure 57 mm[Hg] Mickey Munoz DO Work Phone: [facility] 03-22-2024 10:31-0400 Heart rate 48 /min Mickey Munoz DO Work Phone: [facility] 03-22-2024 10:31-0400 Respiratory rate 18 /min Mickey Munoz DO Work Phone: [facility] 03-22-2024 10:31-0400 Systolic blood pressure 93 mm[Hg] Mickey Josephe DO Work Phone: [facility] 03-08-2024 10:42-0400 Body height 165.1 cm Gisel Wolf MD Work Phone: [facility] 03-08-2024 10:42-0400 Body mass index (BMI) [Ratio] 28.96 kg/m2 Gisel Wolf MD Work Phone: [facility] 03-08-2024 10:42-0400 Body temperature 98.29 [degF] Gisel Wolf MD Work Phone: [facility] 03-08-2024 10:42-0400 Body weight 78.93 kg Gisel Wolf MD Work Phone: [facility] 03-08-2024 10:42-0400 Diastolic blood pressure 53 mm[Hg] Gisel Wolf MD Work Phone: [facility] 03-08-2024 10:42-0400 Heart rate 48 /min Gisel Wolf MD Work Phone: [facility] 03-08-2024 10:42-0400 Respiratory rate 16 /min Gisel Wolf MD Work Phone: [facility] 03-08-2024 10:42-0400 SaO2% (BldA) [Mass fraction] 98 % Gisel Wolf MD Work Phone: [facility] 03-08-2024 10:42-0400 Systolic blood pressure 107 mm[Hg] Gisel Wolf MD Work Phone: [facility] 01-19-2024 13:34-0400 Body height 165.[address] Iraida Balderas Work Phone: [facility] 01-19-2024 13:34-0400 Body mass index (BMI) [Ratio] 30.6 kg/m2 Dr. Iraida Balderas Work Phone: [facility] 01-19-2024 13:34-0400 Body temperature 98.7 [degF] Dr. Iraida Balderas Work Phone: [facility] 01-19-2024 13:34-0400 Body weight 83.[address] Iraida Balderas Work Phone: [facility] 01-19-2024 13:34-0400 Diastolic blood pressure 63 mm[Hg] Dr. Iraida Balderas Work Phone: [facility] 01-19-2024 13:34-0400 Heart rate 55 /min Dr. Iraida Balderas Work Phone: [facility] 01-19-2024 13:34-0400 Respiratory rate 16 /min Dr. Iraida Balderas Work Phone: [facility] 01-19-2024 13:34-0400 SaO2% (BldA) [Mass fraction] 95 % Dr. Iraida Balderas Work Phone: [facility] 01-19-2024 13:34-0400 Systolic blood pressure 105 mm[Hg] Dr. Iraida Balderas Work Phone: [facility] 01-13-2024 10:35-0400 Body mass index (BMI) [Ratio] 27.4 kg/m2 Dr. Iraida Balderas Work Phone: [facility] 01-13-2024 10:35-0400 Body temperature 96.6 [degF] Dr. Iraida Balderas Work Phone: [facility] 01-13-2024 10:35-0400 Diastolic blood pressure 51 mm[Hg] Dr. Iraida Balderas Work Phone: [facility] 01-13-2024 10:35-0400 Heart rate 44 /min Dr. Iraida Balderas Work Phone: [facility] 01-13-2024 10:35-0400 Respiratory rate 13 /min Dr. Iraida Balderas Work Phone: [facility] 01-13-2024 10:35-0400 Systolic blood pressure 99 mm[Hg] Dr. Iraida Balderas Work Phone: [facility] 12-27-2023 00:18-0400 Body weight 74.[address] Iraida Balderas Work Phone: [facility] 12-22-2023 13:12-0400 Body height 165.[address] Iraida Balderas Work Phone: [facility] 12-22-2023 13:12-0400 Body mass index (BMI) [Ratio] 30.9 kg/m2 Dr. Iraida Balderas Work Phone: [facility] 12-22-2023 13:12-0400 Body temperature 98.8 [degF] Dr. Iraida Balderas Work Phone: [facility] 12-22-2023 13:12-0400 Body weight 84.[address] Iraida Balderas Work Phone: [facility] 12-22-2023 13:12-0400 Diastolic blood pressure 64 mm[Hg] Dr. Iraida Balderas Work Phone: 8(138)417-903720 [address] 12-22-2023 13:12-0400 Heart rate 48 /min Dr. Iraida Balderas Work Phone: 2(093)631-139320 [address] 12-22-2023 13:12-0400 Respiratory rate 18 /min Dr. Iraida Balderas Work Phone: 9(155)572-318073 [place] [address] 12-22-2023 13:12-0400 SaO2% (BldA) [Mass fraction] 98 % Dr. Iraida Balderas Work Phone: 8(708)459-482420 [address] 12-22-2023 13:12-0400 Systolic blood pressure 108 mm[Hg] Dr. Iraida Balderas Work Phone: 4(271)718-530620 [address] 12-15-2023 13:22-0400 Body mass index (BMI) [Ratio] 27.4 kg/m2 Dr. Iraida Balderas Work Phone: [facility] 12-15-2023 13:22-0400 Body temperature 98.1 [degF] Dr. Iraida Balderas Work Phone: [facility] 12-15-2023 13:22-0400 Diastolic blood pressure 52 mm[Hg] Dr. Iraida Balderas Work Phone: [facility] 12-15-2023 13:22-0400 Heart rate 54 /min Dr. Iraida Balderas Work Phone: 1(159)650-177173 [place] [address] 12-15-2023 13:22-0400 Respiratory rate 18 /min Dr. Iraida Balderas Work Phone: [facility] 12-15-2023 13:22-0400 Systolic blood pressure 99 mm[Hg] Dr. Iraida Balderas Work Phone: [facility] 12-09-2023 10:34-0400 Body mass index (BMI) [Ratio] 27.4 kg/m2 Dr. Iraida Balderas Work Phone: [facility] 12-09-2023 10:34-0400 Body temperature 97.4 [degF] Dr. Iraida Balderas Work Phone: 5(583)709-330073 [place] [address] 12-09-2023 10:34-0400 Diastolic blood pressure 38 mm[Hg] Dr. Iraida Balderas Work Phone: 8(842)921-692973 [place] [address] 12-09-2023 10:34-0400 Heart rate 52 /min Dr. Iraida Balderas Work Phone: 0(211)395-683773 [place] [address] 12-09-2023 10:34-0400 Respiratory rate 18 /min Dr. Iraida Balderas Work Phone: 1(049)987-619673 [place] [address] 12-09-2023 10:34-0400 Systolic blood pressure 97 mm[Hg] Dr. Iraida Balderas Work Phone: [facility] 11-26-2023 00:17-0500 Body weight 74.[address] Iraida Balderas Work Phone: [facility] 11-25-2023 10:28-0500 Body mass index (BMI) [Ratio] 27.4 kg/m2 Dr. Iraida Balderas Work Phone: 4(752)079-998173 [place] [address] 11-25-2023 10:28-0500 Body temperature 97.8 [degF] Dr. Iraida Balderas Work Phone: [facility] 11-25-2023 10:28-0500 Diastolic blood pressure 56 mm[Hg] Dr. Iraida Balderas Work Phone: [facility] 11-25-2023 10:28-0500 Heart rate 60 /min Dr. Iraida Balderas Work Phone: [facility] 11-25-2023 10:28-0500 Respiratory rate 16 /min Dr. Iraida Balderas Work Phone: [facility] 11-25-2023 10:28-0500 Systolic blood pressure 106 mm[Hg] Dr. Iraida Balderas Work Phone: [facility] 11-24-2023 13:08-0500 Body height 165.[address] Iraida Balderas Work Phone: [facility] 11-24-2023 13:08-0500 Body temperature 98.3 [degF] Dr. Iraida Balderas Work Phone: [facility] 11-24-2023 13:08-0500 Diastolic blood pressure 59 mm[Hg] Dr. Iraida Balderas Work Phone: [facility] 11-24-2023 13:08-0500 Heart rate 54 /min Dr. Iraida Balderas Work Phone: [facility] 11-24-2023 13:08-0500 Respiratory rate 18 /min Dr. Iraida Balderas Work Phone: [facility] 11-24-2023 13:08-0500 SaO2% (BldA) [Mass fraction] 98 % Dr. Iraida Balderas Work Phone: [facility] 11-24-2023 13:08-0500 Systolic blood pressure 101 mm[Hg] Dr. Iraida Balderas Work Phone: [facility] 10-28-2023 00:49-0500 Body weight 74.[address] Iraida Balderas Work Phone: [facility] 10-27-2023 11:26-0500 Body height 165.[address] Jenn Perez Work Phone: [facility] 10-27-2023 11:26-0500 Body temperature 98.9 [degF] Dr. Jenn Perez Work Phone: [facility] 10-27-2023 11:26-0500 Diastolic blood pressure 66 mm[Hg] Dr. Jenn Perez Work Phone: [facility] 10-27-2023 11:26-0500 Heart rate 56 /min Dr. Jenn Perez Work Phone: [facility] 10-27-2023 11:26-0500 Respiratory rate 18 /min Dr. Jenn Perez Work Phone: [facility] 10-27-2023 11:26-0500 SaO2% (BldA) [Mass fraction] 98 % Dr. Jenn Perez Work Phone: [facility] 10-27-2023 11:26-0500 Systolic blood pressure 106 mm[Hg] Dr. Jenn Perez Work Phone: [facility] 10-14-2023 10:36-0500 Body mass index (BMI) [Ratio] 27.4 kg/m2 Dr. Jenn Perez Work Phone: 2(833)[phone] [place] [address] 10-14-2023 10:36-0500 Body temperature 97.8 [degF] Dr. Jenn Perez Work Phone: [facility] 10-14-2023 10:36-0500 Diastolic blood pressure 59 mm[Hg] Dr. Jenn Perez Work Phone: [facility] 10-14-2023 10:36-0500 Heart rate 56 /min Dr. Jenn Perez Work Phone: [facility] 10-14-2023 10:36-0500 Respiratory rate 16 /min Dr. Jenn Perez Work Phone: [facility] 10-14-2023 10:36-0500 Systolic blood pressure 106 mm[Hg] Dr. Jenn Perez Work Phone: [facility] 09-29-2023 13:36-0500 Body height 165.[address] Jenn Perez Work Phone: [facility] 09-29-2023 13:34-0500 Body mass index (BMI) [Ratio] 31.4 kg/m2 Dr. Jenn Perez Work Phone: [facility] 09-29-2023 13:34-0500 Body temperature 99.2 [degF] Dr. Jenn Perez Work Phone: [facility] 09-29-2023 13:34-0500 Body weight 85.[address] Jenn Perez Work Phone: [facility] 09-29-2023 13:34-0500 Diastolic blood pressure 57 mm[Hg] Dr. Jenn Perez Work Phone: [facility] 09-29-2023 13:34-0500 Heart rate 81 /min Dr. Jenn Perez Work Phone: [facility] 09-29-2023 13:34-0500 Respiratory rate 18 /min Dr. Jenn Perez Work Phone: [facility] 09-29-2023 13:34-0500 SaO2% (BldA) [Mass fraction] 94 % Dr. Jenn Perez Work Phone: [facility] 09-29-2023 13:34-0500 Systolic blood pressure 99 mm[Hg] Dr. Jenn Perez Work Phone: [facility] 09-27-2023 00:25-0500 Body weight 74.[address] Jenn Perez Work Phone: [facility] 09-23-2023 10:53-0500 Body mass index (BMI) [Ratio] 27.4 kg/m2 Dr. Jenn Perez Work Phone: [facility] 09-23-2023 10:53-0500 Body temperature 97.4 [degF] Dr. Jenn Perez Work Phone: [facility] 09-23-2023 10:53-0500 Diastolic blood pressure 48 mm[Hg] Dr. Jenn Perez Work Phone: [facility] 09-23-2023 10:53-0500 Heart rate 50 /min Dr. Jenn Perez Work Phone: [facility] 09-23-2023 10:53-0500 Respiratory rate 18 /min Dr. Jenn Perez Work Phone: [facility] 09-23-2023 10:53-0500 Systolic blood pressure 114 mm[Hg] Dr. Jenn Perez Work Phone: [facility] 09-08-2023 10:54-0500 Body height 165.1 cm Gisel Wolf MD Work Phone: [facility] 09-08-2023 10:54-0500 Body temperature 97.2 [degF] Gisel Wolf MD Work Phone: [facility] 09-08-2023 10:54-0500 Diastolic blood pressure 54 mm[Hg] Gisel Wolf MD Work Phone: [facility] 09-08-2023 10:54-0500 Heart rate 53 /min Gisel Wolf MD Work Phone: [facility] 09-08-2023 10:54-0500 Respiratory rate 18 /min Gisel Wolf MD Work Phone: [facility] 09-08-2023 10:54-0500 SaO2% (BldA) [Mass fraction] 98 % Gisle Wolf MD Work Phone: [facility] 09-08-2023 10:54-0500 Systolic blood pressure 97 mm[Hg] Gisel Wolf MD Work Phone: [facility] 09-01-2023 11:03-0500 Body height 165.[address] Jenn Perez Work Phone: [facility] 09-01-2023 11:03-0500 Body mass index (BMI) [Ratio] 27.6 kg/m2 Dr. Jenn Perez Work Phone: [facility] 09-01-2023 11:03-0500 Body temperature 98.2 [degF] Dr. Jenn Perez Work Phone: [facility] 09-01-2023 11:03-0500 Body weight 75.[address] Jenn Perez Work Phone: [facility] 09-01-2023 11:03-0500 Diastolic blood pressure 53 mm[Hg] Dr. Jenn Perez Work Phone: [facility] 09-01-2023 11:03-0500 Heart rate 61 /min Dr. Jenn Perez Work Phone: [facility] 09-01-2023 11:03-0500 Respiratory rate 14 /min Dr. Jenn Perez Work Phone: [facility] 09-01-2023 11:03-0500 SaO2% (BldA) [Mass fraction] 95 % Dr. Jenn Perez Work Phone: [facility] 09-01-2023 11:03-0500 Systolic blood pressure 86 mm[Hg] Dr. Jenn Perez Work Phone: [facility] 08-27-2023 00:51-0500 Body weight 74.[address] Jenn Perez Work Phone: [facility] 08-26-2023 10:32-0500 Body mass index (BMI) [Ratio] 27.4 kg/m2 Dr. Jenn Perez Work Phone: [facility] 08-26-2023 10:32-0500 Body temperature 97.2 [degF] Dr. Jenn Perez Work Phone: [facility] 08-26-2023 10:32-0500 Respiratory rate 18 /min Dr. Jenn Perez Work Phone: [facility] 08-12-2023 09:02-0500 Body height 165.[address] Jenn Perez Work Phone: [facility] 08-12-2023 09:02-0500 Body mass index (BMI) [Ratio] 27.4 kg/m2 Dr. Jenn Perez Work Phone: [facility] 08-12-2023 09:02-0500 Body temperature 97.6 [degF] Dr. Jenn Perez Work Phone: [facility] 08-12-2023 09:02-0500 Body weight 74.[address] Jenn Perez Work Phone: [facility] 08-12-2023 09:02-0500 Diastolic blood pressure 40 mm[Hg] Dr. Jenn Perez Work Phone: [facility] 08-12-2023 09:02-0500 Heart rate 55 /min Dr. Jenn Perez Work Phone: [facility] 08-12-2023 09:02-0500 Respiratory rate 16 /min Dr. Jenn Perez Work Phone: [facility] 08-12-2023 09:02-0500 Systolic blood pressure 92 mm[Hg] Dr. Jenn Perez Work Phone: [facility] 08-04-2023 10:34-0500 Body height 165.[address] Jenn Perez Work Phone: [facility] 08-04-2023 10:31-0500 Body temperature 98.9 [degF] Dr. Jenn Perez Work Phone: [facility] 08-04-2023 10:31-0500 Diastolic blood pressure 65 mm[Hg] Dr. Jenn Perez Work Phone: [facility] 08-04-2023 10:31-0500 Heart rate 55 /min Dr. Jenn Perez Work Phone: [facility] 08-04-2023 10:31-0500 Respiratory rate 18 /min Dr. Jenn Perez Work Phone: [facility] 08-04-2023 10:31-0500 SaO2% (BldA) [Mass fraction] 96 % Dr. Jenn Perez Work Phone: [facility] 08-04-2023 10:31-0500 Systolic blood pressure 114 mm[Hg] Dr. Jenn Perez Work Phone: [facility] 07-17-2023 03:51-0400 Body height 165.1 cm [facility] 07-17-2023 03:51-0400 Body temperature 97.9 [degF] [facility] 07-17-2023 03:51-0400 Diastolic blood pressure 92 mm[Hg] [facility] 07-17-2023 03:51-0400 Heart rate 82 /min [facility] 07-17-2023 03:51-0400 Respiratory rate 16 /min [facility] 07-17-2023 03:51-0400 SaO2% (BldA) [Mass fraction] 99 % [facility] 07-17-2023 03:51-0400 Systolic blood pressure 135 mm[Hg] [facility] 2023 10:28-0400 Body height 165.1 cm [facility] 2023 10:28-0400 Body mass index (BMI) [Ratio] 26.9 kg/m2 [facility] 2023 10:28-0400 Body temperature 98.5 [degF] [facility] 2023 10:28-0400 Body weight 73.48 kg [facility] 10-16-2023 10:28-0400 Diastolic blood pressure 59 mm[Hg[facility] 10:28-0400 Heart rate 61 /[facility] 10:28-[facility]00 Respiratory rate 16 /min [facility] 10:28-0400 SaO2% (BldA) [Mass fraction] 97 % [facility] 2023 10:28-0400 Systolic blood pressure 104 mm[Hg] [facility] 04-14-2023 12:24-0400 Body mass index (BMI) [Ratio] 25.79 kg/m2 Gisel Wolf MD Work Phone: [facility] 04-14-2023 12:24-0400 Body temperature 97.7 [degF] Gisel Wolf MD Work Phone: [facility] 04-14-2023 12:24-0400 Body weight 70.31 kg Gisel Wolf MD Work Phone: [facility] 04-14-2023 12:24-0400 Diastolic blood pressure 60 mm[Hg] Gisel Wolf MD Work Phone: [facility] 04-14-2023 12:24-0400 Heart rate 57 /min Gisel Wolf MD Work Phone: [facility] 04-14-2023 12:24-0400 Respiratory rate 20 /min Gisel Wolf MD Work Phone: [facility] 04-14-2023 12:24-0400 SaO2% (BldA) [Mass fraction] 98 % Gisel Wolf MD Work Phone: [facility] 04-14-2023 12:24-0400 Systolic blood pressure 113 mm[Hg] Gisel Wolf MD Work Phone: [facility] 02-04-2023 10:47-0400 Body temperature 98.91 [degF] Emanuel Guerra MD Work Phone: [facility] 02-04-2023 10:47-0400 Diastolic blood pressure 55 mm[Hg] Emanuel Guerra MD Work Phone: [facility] 02-04-2023 10:47-0400 Heart rate 70 /min Emanuel Guerra MD Work Phone: [facility] 02-04-2023 10:47-0400 Systolic blood pressure 107 mm[Hg] Emanuel Guerra MD Work Phone: [facility] 01-29-2023 12:03-0400 Diastolic blood pressure 67 mm[Hg] [facility] 01-29-2023 12:03-0400 Heart rate 70 /min [facility] 01-29-2023 12:03-0400 Respiratory rate 16 /min [facility] 01-29-2023 12:03-0400 SaO2% (BldA) [Mass fraction] 100 % [facility] 01-29-2023 12:03-0400 Systolic blood pressure 110 mm[Hg] [facility] 01-29-2023 08:57-0400 Body height 165.1 cm [facility] 01-29-2023 08:57-0400 Body mass index (BMI) [Ratio] 25.79 kg/m2 [facility] 01-29-2023 08:57-0400 Body temperature 98.8 [degF] [facility] 01-29-2023 08:57-0400 Body weight 70.31 kg [facility] 12-19-2022 15:02-0400 Body temperature 97.9 [degF] Josef Judd MD Work Phone: [facility] 12-19-2022 15:02-0400 Diastolic blood pressure 62 mm[Hg] Josef Judd MD Work Phone: [facility] 12-19-2022 15:02-0400 Heart rate 74 /min Josef Hand MD Work Phone: [employer] 12-19-2022 15:02-0400 SaO2% (BldA) [Mass fraction] 96 % Josef Hand MD Work Phone: [employer] 12-19-2022 15:02-0400 Systolic blood pressure 108 mm[Hg] Josef Hand MD Work Phone: [facility] 12-18-2022 09:48-0400 Respiratory rate 16 /min Josef Hand MD Work Phone: [employer] 12-17-2022 13:39-0400 Body height 165.1 cm Josef Hand MD Work Phone: [employer] 12-17-2022 13:39-0400 Body mass index (BMI) [Ratio] 26.63 kg/m2 Josef Hand MD Work Phone: [employer] 12-17-2022 13:39-0400 Body weight 72.58 kg Josef Hand MD Work Phone: [employer] 12-09-2022 11:17-0400 Body temperature 98.6 [degF] Marcello Bear DO Work Phone: [employer] 12-09-2022 11:17-0400 Diastolic blood pressure 75 mm[Hg] Marcello Bear DO Work Phone: [employer] 12-09-2022 11:17-0400 Heart rate 68 /min Marcello Bear DO Work Phone: [employer] 12-09-2022 11:17-0400 Respiratory rate 16 /min Marcello Bear DO Work Phone: [employer] 12-09-2022 11:17-0400 SaO2% (BldA) [Mass fraction] 97 % Marcello Bear DO Work Phone: [employer] 12-09-2022 11:17-0400 Systolic blood pressure 117 mm[Hg] Marcello Bear DO Work Phone: [facility] 12-01-2022 18:10-0500 Body height 175.3 cm Marcello Bear DO Work Phone: [employer] 12-01-2022 18:10-0500 Body mass index (BMI) [Ratio] 25.1 kg/m2 Marcello Bear DO Work Phone: [employer] 12-01-2022 18:10-0500 Body weight 77.11 kg Marcello Bear DO Work Phone: [employer] 11-30-2022 12:45-0500 Body mass index (BMI) [Ratio] 28.29 kg/m2 Emanuel Guerra MD Work Phone: [employer] 11-30-2022 12:45-0500 Body temperature 99.1 [degF] Emanuel Guerra MD Work Phone: [employer] 11-30-2022 12:45-0500 Body weight 77.11 kg Emanuel Guerra MD Work Phone: [employer] Comment on above: stated 11-30-2022 12:45-0500 Diastolic blood pressure 70 mm[Hg] Emanuel Guerra MD Work Phone: [employer] 11-30-2022 12:45-0500 Heart rate 80 /min Emanuel Guerra MD Work Phone: [employer] 11-30-2022 12:45-0500 Respiratory rate 10 /min Emanuel Guerra MD Work Phone: [employer] 11-30-2022 12:45-0500 SaO2% (BldA) [Mass fraction] 97 % Emanuel Guerra MD Work Phone: [employer] 11-30-2022 12:45-0500 Systolic blood pressure 116 mm[Hg] Emanuel Guerra MD Work Phone: [employer] 11-21-2022 11:44-0500 Body temperature 97 [degF] Rico Bhat MD Work Phone: [employer] 11-21-2022 11:44-0500 Diastolic blood pressure 69 mm[Hg] Rico Bhat MD Work Phone: [employer] 11-21-2022 11:44-0500 Heart rate 54 /min Rico Bhat MD Work Phone: [employer] 11-21-2022 11:44-0500 Respiratory rate 16 /min Rico Bhat MD Work Phone: [employer] 11-21-2022 11:44-0500 SaO2% (BldA) [Mass fraction] 97 % Rico Bhat MD Work Phone: [employer] 11-21-2022 11:44-0500 Systolic blood pressure 119 mm[Hg] Rico Bhat MD Work Phone: [employer] 11-10-2022 10:47-0500 Body height 165.1 cm Rico Bhat MD Work Phone: [employer] 11-10-2022 10:47-0500 Body mass index (BMI) [Ratio] 29.62 kg/m2 Rico Bhat MD Work Phone: [employer] 11-10-2022 10:47-0500 Body weight 80.74 kg Rico Bhat MD Work Phone: [employer] 10-09-2022 08:28-0500 Body height 165.1 cm Salena Flores NP Work Phone: [employer] 10-09-2022 08:28-0500 Body mass index (BMI) [Ratio] 30.79 kg/m2 Salena Flores NP Work Phone: [employer] 10-09-2022 08:28-0500 Body temperature 99.1 [degF] Salena Flores MANAGER BUSINESS Work Phone: [employer] 10-09-2022 08:28-0500 Body weight 83.92 kg Salena Flores NP Work Phone: [employer] 10-09-2022 08:28-0500 Diastolic blood pressure 78 mm[Hg] Salena Flores MANAGER BUSINESS Work Phone: [facility] 10-09-2022 08:28-0500 Heart rate 52 /min Salena Flores MANAGER BUSINESS Work Phone: [facility] 10-09-2022 08:28-0500 SaO2% (BldA) [Mass fraction] 97 % Salena Flores MANAGER BUSINESS Work Phone: [facility] 10-09-2022 08:28-0500 Systolic blood pressure 120 mm[Hg] Salena Flores MANAGER BUSINESS Work Phone: [facility] 08-21-2022 08:55-0500 Body height 165.1 cm Salena Flores MANAGER BUSINESS Work Phone: [facility] 08-21-2022 08:55-0500 Body mass index (BMI) [Ratio] 29.79 kg/m2 Salena Flores MANAGER BUSINESS Work Phone: [facility] 08-21-2022 08:55-0500 Body temperature 97.7 [degF] Salena Flores MANAGER BUSINESS Work Phone: [facility] 08-21-2022 08:55-0500 Body weight 81.19 kg Salena Flores MANAGER BUSINESS Work Phone: [facility] 08-21-2022 08:55-0500 Diastolic blood pressure 69 mm[Hg] Salena Flores MANAGER BUSINESS Work Phone: [facility] 08-21-2022 08:55-0500 Heart rate 49 /min Salena Flores MANAGER BUSINESS Work Phone: [facility] 08-21-2022 08:55-0500 Respiratory rate 16 /min Salena Flores MANAGER BUSINESS Work Phone: [facility] 08-21-2022 08:55-0500 SaO2% (BldA) [Mass fraction] 99 % Salena Flores MANAGER BUSINESS Work Phone: [facility] 08-21-2022 08:55-0500 Systolic blood pressure 124 mm[Hg] Salena Flores MANAGER BUSINESS Work Phone: [facility] 07-30-2022 08:20-0400 Body height 165.1 cm Salena Flores MANAGER BUSINESS Work Phone: [facility] 07-30-2022 08:20-0400 Body mass index (BMI) [Ratio] 30.95 kg/m2 Salena Sandra MANAGER BUSINESS Work Phone: [employer] 07-30-2022 08:20-0400 Body temperature 98.8 [degF] Salena Flores MANAGER BUSINESS Work Phone: [employer] 07-30-2022 08:20-0400 Body weight 84.37 kg Salena Flores MANAGER BUSINESS Work Phone: [facility] 07-30-2022 08:20-0400 Diastolic blood pressure 70 mm[Hg] Salena Flores MANAGER BUSINESS Work Phone: [facility] 07-30-2022 08:20-0400 Heart rate 55 /min Salena Flores MANAGER BUSINESS Work Phone: [facility] 07-30-2022 08:20-0400 SaO2% (BldA) [Mass fraction] 95 % Salena Flores MANAGER BUSINESS Work Phone: [facility] 07-30-2022 08:20-0400 Systolic blood pressure 130 mm[Hg] Salena Flores MANAGER BUSINESS Work Phone: [facility] 06-15-2022 13:21-0400 Body height 165.1 cm Armand José MD Work Phone: [employer] 06-15-2022 13:21-0400 Body mass index (BMI) [Ratio] 30.39 kg/m2 Armand José MD Work Phone: [employer] 06-15-2022 13:21-0400 Body weight 82.83 kg Armand José MD Work Phone: [employer] 06-15-2022 13:21-0400 Diastolic blood pressure 84 mm[Hg] Armand José MD Work Phone: [employer] 06-15-2022 13:21-0400 Heart rate 64 /min Armand José MD Work Phone: [employer] 06-15-2022 13:21-0400 Systolic blood pressure 149 mm[Hg] Armand José MD Work Phone: [employer] 05-07-2022 11:35-0400 Body height 165.1 cm Salena Flores MANAGER BUSINESS Work Phone: [employer] 05-07-2022 11:35-0400 Body mass index (BMI) [Ratio] 30.22 kg/m2 Salena Flores MANAGER BUSINESS Work Phone: [employer] 05-07-2022 11:35-0400 Body temperature 98.29 [degF] Salena Flores MANAGER BUSINESS Work Phone: [employer] 05-07-2022 11:35-0400 Body weight 82.37 kg Salena Flores MANAGER BUSINESS Work Phone: [employer] 05-07-2022 11:35-0400 Diastolic blood pressure 88 mm[Hg] Salena Flores MANAGER BUSINESS Work Phone: [employer] 05-07-2022 11:35-0400 Heart rate 60 /min Salena Flores MANAGER BUSINESS Work Phone: [employer] 05-07-2022 11:35-0400 SaO2% (BldA) [Mass fraction] 99 % Salena Flores MANAGER BUSINESS Work Phone: [employer] 05-07-2022 11:35-0400 Systolic blood pressure 130 mm[Hg] Salena Flores MANAGER BUSINESS Work Phone: [employer] 04-29-2022 12:59-0400 Body height 165.1 cm Salena Flores MANAGER BUSINESS Work Phone: [employer] 04-29-2022 12:59-0400 Body mass index (BMI) [Ratio] 30.35 kg/m2 Salena Flores MANAGER BUSINESS Work Phone: [employer] 04-29-2022 12:59-0400 Body temperature 98.4 [degF] Salena Flores MANAGER BUSINESS Work Phone: [employer] 04-29-2022 12:59-0400 Body weight 82.74 kg Salena Flores MANAGER BUSINESS Work Phone: [employer] 04-29-2022 12:59-0400 Diastolic blood pressure 88 mm[Hg] Salena Flores MANAGER BUSINESS Work Phone: [employer] 04-29-2022 12:59-0400 Heart rate 62 /min Salena Flores MANAGER BUSINESS Work Phone: [employer] 04-29-2022 12:59-0400 SaO2% (BldA) [Mass fraction] 99 % Salena Flores MANAGER BUSINESS Work Phone: [employer] 04-29-2022 12:59-0400 Systolic blood pressure 128 mm[Hg] Salena Flores MANAGER BUSINESS Work Phone: [facility] 04-07-2022 15:00-0400 Body height 165.1 cm Salena Flores MANAGER BUSINESS Work Phone: [employer] 04-07-2022 15:00-0400 Body mass index (BMI) [Ratio] 30.75 kg/m2 Salena Flores MANAGER BUSINESS Work Phone: [employer] 04-07-2022 15:00-0400 Body weight 83.83 kg Salena Flores MANAGER BUSINESS Work Phone: [facility] 04-07-2022 15:00-0400 Diastolic blood pressure 82 mm[Hg] Salena Flores MANAGER BUSINESS Work Phone: [employer] 04-07-2022 15:00-0400 Heart rate 58 /min Salena Flores MANAGER BUSINESS Work Phone: [employer] 04-07-2022 15:00-0400 SaO2% (BldA) [Mass fraction] 98 % Salena Flores MANAGER BUSINESS Work Phone: [employer] 04-07-2022 15:00-0400 Systolic blood pressure 138 mm[Hg] Salena Flores MANAGER BUSINESS Work Phone: [facility] 02-16-2022 14:22-0400 Body height 165.1 cm Salena Flores MANAGER BUSINESS Work Phone: [facility] 02-16-2022 14:22-0400 Body mass index (BMI) [Ratio] 30.72 kg/m2 Salena Flores MANAGER BUSINESS Work Phone: [facility] 02-16-2022 14:22-0400 Body temperature 98.6 [degF] Salena Flores MANAGER BUSINESS Work Phone: [facility] 02-16-2022 14:22-0400 Body weight 83.73 kg Salena Flores MANAGER BUSINESS Work Phone: [facility] 02-16-2022 14:22-0400 Diastolic blood pressure 82 mm[Hg] Salena Flores MANAGER BUSINESS Work Phone: [facility] 02-16-2022 14:22-0400 Heart rate 54 /min Salena Flores MANAGER BUSINESS Work Phone: [facility] 02-16-2022 14:22-0400 SaO2% (BldA) [Mass fraction] 97 % Salena Flores MANAGER BUSINESS Work Phone: [facility] 02-16-2022 14:22-0400 Systolic blood pressure 122 mm[Hg] Salena Flores MANAGER BUSINESS Work Phone: [facility] 01-29-2022 07:36-0400 Body height 165.1 cm Salena Floers MANAGER BUSINESS Work Phone: [facility] 01-29-2022 07:36-0400 Body mass index (BMI) [Ratio] 30.99 kg/m2 Salena Flores MANAGER BUSINESS Work Phone: [facility] 01-29-2022 07:36-0400 Body temperature 99 [degF] Salena Flores MANAGER BUSINESS Work Phone: [facility] 01-29-2022 07:36-0400 Body weight 84.46 kg Salena Flores MANAGER BUSINESS Work Phone: [facility] 01-29-2022 07:36-0400 Diastolic blood pressure 80 mm[Hg] Salena Sandra MANAGER BUSINESS Work Phone: [facility] 01-29-2022 07:36-0400 Heart rate 55 /min Salena Flores MANAGER BUSINESS Work Phone: [facility] 01-29-2022 07:36-0400 SaO2% (BldA) [Mass fraction] 98 % Salena Flores MANAGER BUSINESS Work Phone: [employer] 01-29-2022 07:36-0400 Systolic blood pressure 118 mm[Hg] Salena Sandra MANAGER BUSINESS Work Phone: [facility] 07-31-2021 08:15-0400 Diastolic blood pressure 68 mm[Hg] Petros Bartholomew MD Work Phone: [employer] 07-31-2021 08:15-0400 Systolic blood pressure 128 mm[Hg] Petros Bartholomew MD Work Phone: [employer] 07-31-2021 07:48-0400 Body height 165.1 cm Petros Bartholomew MD Work Phone: [employer] 07-31-2021 07:48-0400 Body mass index (BMI) [Ratio] 30.32 kg/m2 Petros Bartholomew MD Work Phone: [employer] 07-31-2021 07:48-0400 Body temperature 98.29 [degF] Petros Bartholomew MD Work Phone: [employer] 07-31-2021 07:48-0400 Body weight 82.64 kg Petros Bartholomew MD Work Phone: [employer] 07-31-2021 07:48-0400 Heart rate 51 /min Petros Bartholomew MD Work Phone: [employer] 07-31-2021 07:48-0400 Respiratory rate 16 /min Petros Bartholomew MD Work Phone: [facility] 07-31-2021 07:[id number] SaO2% (BldA) [Mass fraction] 98 % Petros Bartholomew MD Work Phone: [facility] Encounters Encounter Date Encounter Type Care Provider Facility Start: 07-16-2025 ambulatory Blade Milner Facility: [facility] Start: 06-28-[address] Roby Perez MD -[facility] Start: 06-28-2025 End: 06-28-2025 Patient encounter procedure Zayda DEGROOT -[facility] Work Phone: Start: 06-28-2025 End: 06-28-[address] Blade Milner DO Work Phone: -[facility] Start: 06-27-[address] Blade kraus DO -Physical Therapy Work Phone: Start: 05-31-[address] Roby Perez MD -[facility] Start: 05-31-2025 End: 05-31-[address] Jenn Perez MD -[facility] Work Phone: Start: 05-31-2025 End: 05-31-[address] Blade Milner DO Work Phone: -[facility] Start: 05-29-[address] Blade kraus DO -Physical Therapy Work Phone: Start: 05-10-2025 End: 05-10-[address] Oren Olivera MD -[facility] Work Phone: Start: 05-10-2025 End: 05-10-[address] Blade Milner DO Work Phone: -[facility] Start: 05-09-[address] Blade kraus DO -Physical Therapy Work Phone: Start: 05-02-[address] Roby Perez MD -[facility] Start: 05-02-2025 End: 05-02-[address] Jenn Perez MD -[facility] Work Phone: Start: 05-02-2025 End: 05-02-[address] Blade Milner DO Work Phone: -[facility] Start: 05-01-[address] Blade kraus DO -Physical Therapy Work Phone: Start: 04-05-[address] Roby Perez MD -[facility] Start: 04-05-2025 End: 04-05-[address] Jenn Perez MD -[facility] Work Phone: Start: 04-05-2025 End: 04-05-[address] Blade Milner DO Work Phone: -[facility] Start: 03-16-2025 End: 03-16-2025 Office outpatient visit 40 minutes Gisel Wolf MD Work Phone: Division of Hematology & Oncology at [facility] Comment on above: Multiple myeloma, re mission status unspecified (Primary Dx) Start: 03-16-2025 ambulatory BLADE MILNER Facilit y:[facility] Start: 03-12-2025 End: 03-12-2025 ambulatory LETICIA BOWIE Facility:[id number] Comment on above: Compression fracture of T2 vertebra, sequela (Primary Dx); Multiple myeloma in remission (HCC); Abnormal posture Start: 03-08-[address] Roby Perez MD -[facility] Start: 03-08-2025 End: 03-08-2025 Patient encounter procedure Zayda DEGROOT -[facility] Work Phone: Start: 03-08-2025 End: 03-08-[address] Blade Milner DO Work Phone: [facility] Work Phone: Start: 02-28-2025 End: 02-28-[address] Blade Milner DO Work Phone: [facility] Work Phone: Start: 02-28-2025 End: 02-28-[address] Blade Milner MD -[facility] Work Phone: Start: 02-28-2025 End: 02-28-2025 ambulatory [facility] Facility:[facility] Start: 02-20-2025 End: 02-20-[address] Blade Milner DO Work Phone: [facility] Work Phone: Start: 02-20-2025 End: 02-20-[address] Blade Milner MD -[facility] Work Phone: Start: 02-20-2025 End: 02-20-2025 ambulatory [facility] Facility:[facility] Start: 02-01-2025 End: 02-01-2025 Telephone encounter Ric Souza MD Work Phone: [facility] Start: 02-01-[address] Roby Perez MD -[facility] Start: 02-01-2025 End: 02-01-2025 Patient encounter procedure Zayda Hanson NP-C -[facility] Work Phone: Start: 02-01-2025 End: 02-01-2025 ambulatory [facility] Start: 01-31-2025 End: 01-31-2025 Emergency department patient visit Dr. Blade Milner DO Work Phone: -Emergency Department Work Phone: Start: 01-11-2025 End: 01-11-[address] Blade Milner DO Work Phone: [facility] Work Phone: Start: 01-11-2025 End: 01-11-[address] [facility] Work Phone: Start: 01-11-[address] Blade brewster MD -[facility] Work Phone: Start: 01-11-2025 End: 01-11-2025 ambulatory [facility] Facility:[facility] Start: 01-04-2025 End: 01-04-[address] Blade Milner DO Work Phone: [facility] Work Phone: Start: 01-04-2025 End: 01-04-2025 Patient encounter procedure Zayda DEGROOT -[facility] Work Phone: Start: 01-04-[address] Roby Perez MD -[facility] Start: 01-04-2025 End: 01-04-2025 Patient encounter procedure Zayda DEGROOT -[facility] Work Phone: Start: 01-04-2025 End: 01-04-2025 ambulatory [facility] Facility:[facility] Start: 01-04-2025 End: 01-04-2025 ambulatory [facility] Facility:[facility] Start: 12-11-2024 End: 12-11-[address] Blade Milner DO Work Phone: [facility] Work Phone: Start: 12-11-2024 End: 12-11-[address] Blade Milner MD -[facility] Work Phone: Start: 12-11-2024 End: 12-11-2024 ambulatory [facility] Facility:[facility] Start: 12-07-[address] Roby Perez MD -[facility] Start: 12-07-2024 End: 12-07-[address] Jenn Perez MD -[facility] Work Phone: Start: 12-07-2024 End: 12-07-2024 ambulatory [facility] Facility:[facility] Start: 11-28-2024 End: 11-28-2024 Nursing evaluation of patient and report Nurse Urocrystal Waller Work Phone: [facility] Comment on above: Benign prostatic hyp erplasia with urinary retention (Primary Dx) Start: 11-28-2024 End: 11-28-2024 Patient encounter procedure Ric Souza MD Work Phone: [facility] Comment on above: Benign prostatic hyp erplasia with urinary retention (Primary Dx); Neurogenic bladder Start: 11-28-2024 End: 11-28-2024 ambulatory RIC SOUZA Facility:[facility] Start: 11-21-2024 End: 11-21-2024 Patient encounter procedure Joyce GIL -[facility] Work Phone: Start: 11-21-2024 End: 11-21-2024 ambulatory Joyce Hernandez Facility:[facility] Start: 11-10-2024 End: 11-10-2024 ambulatory RIC SOUZA Facility:[facility] Start: 11-10-2024 End: 11-10-2024 Subsequent hospital visit by physician [facility] Work Phone: Radiology Comment on above: Benign prostatic hyp erplasia with urinary retention [N40.1, R33.8] Start: 11-10-2024 End: 11-10-2024 Patient encounter procedure Ric Souza MD Work Phone: [facility] Comment on above: Benign prostatic hyp erplasia with urinary retention (Primary Dx) Start: 11-10-2024 End: 11-10-2024 ambulatory RIC SOUZA Facility:[facility] Start: 11-09-2024 End: 11-09-2024 Patient encounter procedure Zayda Hanson MANAGER BUSINESS- -[facility] Work Phone: Start: 11-09-2024 End: 11-09-2024 ambulatory Zayda Hanson NP Facility:[facility] Start: 11-02-2024 End: 11-02-[address] Oren Olivera MD -[facility] Work Phone: Start: 11-02-2024 End: 11-02-2024 ambulatory Oren Olivera Facility:[facility] Start: 10-20-2024 ambulatory Blade Godinez ity:[facility] Start: 01-24-[address] Blade brewster MD -[facility] Work Phone: Start: 10-12-2024 End: 10-12-2024 Patient encounter procedure Zaydageorgie ReidValentin MANAGER BUSINESS-C -[facility] Work Phone: Start: 10-12-2024 End: 10-12-2024 ambulatory Zaydageorgie Hanson MANAGER BUSINESS Facility:[facility] Start: 10-06-2024 End: 10-06-2024 Telephone encounter Ric Souza MD Work Phone: [facility] Comment on above: Appointment Start: 10-02-2024 End: 10-02-2024 Emergency department patient visit Dr. Arturo Snyder MD -Emergency Department Work Phone: Start: 09-13-2024 End: 09-13-[address] Jenn Perez MD -[facility] Work Phone: Start: 09-13-2024 End: 09-13-2024 ambulatory Blade Milner Facility:[facility] Start: 09-06-2024 ambulatory [facility] Facility:[facility] Start: 08-31-2024 End: 08-31-[address] Oren Olivera MD -[facility] Work Phone: Start: 08-31-2024 End: 08-31-2024 ambulatory Oren Olivera Facility:[facility] Start: 08-17-2024 End: 08-17-2024 Patient encounter procedure Zayda ReidValentin MANAGER BUSINESS-C -[facility] Work Phone: Start: 08-17-2024 End: 08-17-2024 ambulatory Blade Milner Facility:[facility] Start: 08-11-2024 Non-patient / Non-visit Dr. Oren cho MD -[facility] Start: 08-09-2024 Non-patient / Non-visit Dr. Oren cho MD -[facility] Start: 07-10-2024 End: 08-13-2024 Evaluation and management of inpatient Dr. Burt Kaba MD -Transitional Care Unit Start: 06-14-2024 End: 06-14-2024 Subsequent hospital visit by physician Mickey Munoz DO Work Phone: [facility] [place] Comment on above: Arrived Start: 06-14-2024 End: 06-14-2024 ambulatory [facility] Start: 06-05-2024 End: 06-05-2024 Subsequent hospital visit by physician Mickey Munoz DO Work Phone: [facility] Comment on above: Disruption of circuit tester al operation (surgical) wound, not elsewhere classified, sequela Start: 06-05-2024 End: 06-05-2024 ambulatory [facility] Start: 05-24-2024 End: 05-24-2024 Office outpatient visit 15 minutes Mickey Munoz DO Work Phone: [facility] Comment on above: Disruption of circuit tester al operation (surgical) wound, not elsewhere classified, sequela (Primary Dx); 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; Multiple myeloma, remission status unspecified (HCC) Start: 05-24-2024 End: 05-24-2024 ambulatory [facility] Start: 05-17-2024 End: 05-17-2024 ambulatory [facility] Start: 05-17-2024 End: 05-17-2024 Office outpatient visit 15 minutes Mickey Munoz DO Work Phone: [facility] Comment on above: Disruption of circuit tester al operation (surgical) wound, not elsewhere classified, sequela (Primary Dx); 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; Multiple myeloma, remission status unspecified (HCC) Start: 05-17-2024 End: 05-17-2024 Subsequent hospital visit by physician Mickey Munoz DO Work Phone: [facility] Comment on above: Arrived Start: 05-08-2024 End: 05-08-2024 Office outpatient visit 15 minutes Leanna Osborne APRN - BLUE Work Phone: [facility] Comment on above: Disruption of circuit tester al operation (surgical) wound, not elsewhere classified, sequela (Primary Dx); 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; Multiple myeloma, remission status unspecified (HCC) Start: 05-08-2024 End: 05-08-2024 ambulatory LEANNA OSBORNE [facility] Start: 05-03-2024 End: 05-03-2024 Office outpatient visit 15 minutes Mickey Ryann Alexander DO Work Phone: [facility] Comment on above: Disruption of circuit tester al operation (surgical) wound, not elsewhere classified, sequela (Primary Dx); 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; Multiple myeloma, remission status unspecified (HCC) Start: 05-03-2024 End: 05-03-2024 [facility] Start: 04-26-2024 End: 04-26-2024 Office outpatient visit 15 minutes Mickey Munoz DO Work Phone: [facility] Comment on above: Disruption of circuit tester al operation (surgical) wound, not elsewhere classified, sequela (Primary Dx); 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; Multiple myeloma, remission status unspecified (HCC) Start: 04-26-2024 End: 04-26-2024 [facility] Start: 04-19-2024 End: 04-19-2024 Office outpatient visit 15 minutes Mickey Garzon Alexander DO Work Phone: [facility] Comment on above: Disruption of circuit tester al operation (surgical) wound, not elsewhere classified, sequela (Primary Dx); 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 Start: 04-07-2024 End: 04-07-2024 Subsequent hospital visit by physician Mickey Munoz DO Work Phone: [facility] Comment on above: Disruption of circuit tester al operation (surgical) wound, not elsewhere classified, sequela Start: 04-07-2024 End: 04-07-2024 [facility] Start: 04-05-2024 End: 04-05-2024 Office outpatient visit 25 minutes Mickey Munoz DO Work Phone: [facility] Comment on above: Disruption of circuit tester al operation (surgical) wound, not elsewhere classified, sequela (Primary Dx); 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; Multiple myeloma, remission status unspecified (HCC) Start: 04-05-2024 End: 04-05-2024 [facility] Start: 03-29-2024 End: 03-29-2024 Office outpatient visit 15 minutes Mickey Munoz DO Work Phone: [facility] [place] [facility] Comment on above: Disruption of circuit tester al operation (surgical) wound, not elsewhere classified, sequela (Primary Dx); 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; Multiple myeloma, remission status unspecified (HCC) Start: 03-29-2024 End: 03-29-2024 [facility] Start: 03-22-2024 End: 03-22-2024 [facility] Start: 03-22-2024 End: 03-22-2024 Office outpatient new 30 minutes Mickey Munoz DO Work Phone: [facility] [place] [facility] Comment on above: Disruption of circuit tester al operation (surgical) wound, not elsewhere classified, sequela (Primary Dx); Multiple myeloma, remission status unspecified (HCC); 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 Iraida edmonds Work Phone: [facility] Start: 01-19-2024 End: 01-19-[address] Iraida Balderas Work Phone: [facility] Work Phone: Start: 01-13-2024 Non-patient / Non-visit Dr. Oniel Balderas Work Phone: [facility] Work Phone: Start: 01-13-2024 End: 01-25-[address] Iraida Balderas Work Phone: [facility] Work Phone: Start: 01-13-2024 End: 01-25-[address] Ira[facility] Balderas [facility] Work Phone: Start: 01-13-[address] Iraida brunson Work Phone: [facility] Work Phone: Start: 12-30-2023 Non-patient / Non-visit Dr. Oniel Balderas Work Phone: [facility] Work Phone: Start: 12-22-[address] Iraida edmonds Work Phone: [facility] Start: 12-22-2023 End: 12-22-[address] Iraida Balderas Work Phone: [facility] Work Phone: Start: 12-15-2023 Non-patient / Non-visit Dr. Oniel Balderas Work Phone: [facility] Start: 12-15-2023 End: 12-26-[address] Iraida Balderas Work Phone: [facility] Work Phone: Start: 12-15-2023 End: 12-26-[address] Iraida Balderas [facility]: [facility] Work Phone: Start: 12-13-2023 End: 12-13-[address] Iraida Balderas Work Phone: [facility] Work Phone: Start: 12-13-2023 End: 12-13-[address] Iraida Balderas Work Phone: [facility] Work Phone: Start: 12-09-2023 Non-patient / Non-visit Dr. Oniel Balderas Work Phone: [facility] Work Phone: Start: 12-09-[address] Iraida edmonds Work Phone: [facility] Work Phone: Start: 11-25-2023 Non-patient / Non-visit Dr. Oniel Balderas Work Phone: [facility] Work Phone: Start: 11-25-2023 End: 11-25-[address] Iraida Balderas Work Phone: [facility] Work Phone: Start: 11-25-2023 End: 11-25-[address] Iraida Balderas [facility] Work Phone: Start: 11-24-[address] Iraida edmonds Work Phone: [facility] Start: 11-24-2023 End: 11-24-[address] Iraida Balderas Work Phone: [facility] Work Phone: Start: 11-11-2023 Non-patient / Non-visit Dr. Oniel Balderas Work Phone: [facility] Work Phone: Start: 10-28-2023 Non-patient / Non-visit Dr. Oniel Balderas Work Phone: [facility] Work Phone: Start: 10-27-[address] Roby Perez Work Phone: [facility] Start: 10-27-2023 End: 10-27-[address] Jenn Perez Work Phone: [facility] Work Phone: Start: 10-14-2023 Non-patient / Non-visit Dr. Lorene Perez Work Phone: [facility] Work Phone: Start: 10-14-2023 End: 10-27-[address] Jenn Perez Work Phone: [facility] Work Phone: Start: 10-14-2023 End: 10-27-[address] Jenn Perez Work Phone: [facility] Work Phone: Start: 10-14-[address] Roby Perez Work Phone: [facility] Work Phone: Start: 10-07-2023 End: 10-07-[address] Jenn Perez Work Phone: [facility] Work Phone: Start: 10-07-2023 End: 10-07-[address] Jenn Perez Work Phone: [facility] Work Phone: Start: 09-30-2023 Non-patient / Non-visit Dr. Lorene Perez Work Phone: [facility] Work Phone: Start: 09-29-[address] oRby Perez Work Phone: [facility] Start: 09-29-2023 End: 09-29-[address] Jenn Perez Work Phone: [facility] Work Phone: Start: 09-23-2023 Non-patient / Non-visit Dr. Lorene Perez Work Phone: [facility] Work Phone: Start: 09-23-2023 End: 09-26-[address] Jenn Perez [facility] Work Phone: Start: 09-09-2023 Non-patient / Non-visit Dr. Lorene Perez Work Phone: [facility] Work Phone: Start: 09-08-2023 End: 09-08-2023 Office outpatient visit 40 minutes Gisel Wolf MD Work Phone: Division of Hematology & Oncology at [facility] Comment on above: Multiple myeloma, re mission status unspecified (Primary Dx); Chronic deep vein thrombosis (DVT) of proximal vein of both lower extremities Start: 09-01-[address] Roby Perez Work Phone: [facility] Start: 09-01-2023 End: 09-01-[address] Jenn Perez Work Phone: [facility] Work Phone: Start: 08-30-2023 End: 08-30-[address] Jenn Perez Work Phone: [facility] Work Phone: Start: 08-30-2023 End: 08-30-[address] Jenn Perez Work Phone: [facility] Work Phone: Start: 08-26-2023 Non-patient / Non-visit Dr. Lorene Perez Work Phone: [facility] Work Phone: Start: 08-26-2023 End: 08-26-[address] Jenn Perez Work Phone: [facility] Work Phone: Start: 08-26-2023 End: 08-26-[address] Jenn Perez [facility] Work Phone: Start: 08-13-2023 End: 08-13-[address] Jenn Perez Work Phone: [facility] Work Phone: Start: 08-13-2023 End: 08-13-[address] Jenn Perez Work Phone: [facility] Work Phone: Start: 08-12-2023 Non-patient / Non-visit Dr. Lorene Perez Work Phone: [facility] Work Phone: Start: 08-12-[address] Roby Perez [facility]: [facility] Work Phone: Start: 08-06-2023 End: 08-06-[address] Jenn Perez Work Phone: [facility] Work Phone: Start: 08-06-2023 End: 08-06-[address] Jenn Perez Work Phone: [facility] Work Phone: Start: 08-06-[address] Jen Perez Work Phone: [facility] Work Phone: Start: 08-05-2023 Non-patient / Non-visit Dr. Lorene Perez Work Phone: [facility] Work Phone: Start: 08-04-[address] Roby Perez Work Phone: [facility] Start: 08-04-2023 End: 08-04-[address] Jenn Perez Work Phone: [facility] Work Phone: Start: 08-04-2023 End: 08-04-[address] Jenn Perez Work Phone: [facility] Work Phone: Start: 07-17-2023 End: 07-17-2023 Emergency department [facility] Work [facility]: Start: 2023 Registered Recurring SERVICE MECHANIC Anika Gay [facility] Start: 2023 End: 2023 Patient encounter procedure SERVICE MECHANIC Anika Gay [facility] Work Phone: Start: 07-08-2023 Non-patient / Non-visit SUSANNAH rand [facility] Work Phone: Start: 07-07-2023 End: 07-07-2023 ambulatory SUSANNAH [facility] Work Phone: Start: 07-07-2023 End: 07-07-2023 Departed Referred SERVICE MECHANIC [facility] Work Phone: Start: 04-14-2023 End: 04-14-2023 Office outpatient visit 40 minutes Gisel Wolf MD Work Phone: Division of Hematology & Oncology at [facility] Comment on above: Multiple myeloma, re mission status unspecified (Primary Dx) Start: 04-05-2023 [facility] Start: 03-02-2023 End: 03-03-2023 ambulatory RENUKA [facility] Start: 02-12-2023 ambulatory EFRAÍN~[id number] MORGAN GILLIS [facility] Start: 02-04-2023 Unknown EMANUEL GUERRA [facility] Start: 02-04-2023 End: 02-04-2023 Evaluation and management of inpatient Emanuel Guerra MD Work Phone: [facility] Start: 02-04-2023 End: 02-04-2023 Subsequent hospital visit by physician Emanuel Guerra MD Work Phone: [facility] Comment on above: Multiple myeloma not having achieved remission (CMS/HCC) Start: 02-03-2023 ambulatory RENUKA ADDISON [facility] Start: 02-03-2023 End: 02-03-2023 Evaluation and management of inpatient McSa Ir Consult [facility] Start: 02-03-2023 End: 02-03-2023 Subsequent hospital visit by physician McSa Consult [facility] Comment on above: Multiple myeloma not having achieved remission (CMS/HCC) (Primary Dx) Start: 01-29-2023 ambulatory SALENA FLORES Mo [facility] Start: 01-29-2023 End: 01-29-2023 Evaluation and management of inpatient McSa Ct 2 [facility] Start: 01-29-2023 End: 01-29-2023 Subsequent hospital visit by physician McSa 2 [facility] Comment on above: Multiple myeloma not having achieved remission (CMS/HCC); 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); Cord compression (CMS/HCC) Start: 01-21-2023 End: 01-21-2023 Emergency department patient visit FRANCI LYNN [facility] Start: 01-19-2023 ambulatory RENUKA ADDISON [facility] Start: 01-19-2023 End: 01-19-2023 Evaluation and management of inpatient McSa Ir Consult [facility] Start: 01-19-2023 End: 01-19-2023 Subsequent hospital visit by physician McSa Consult [facility] Comment on above: Arrived Start: 01-06-2023 End: 01-06-2023 Subsequent hospital visit by physician Gisel Wolf MD Work Phone: Apheresis Unit Comment on above: Arrived Start: 01-05-2023 Unknown EMANUEL GUERRA [facility] Start: 01-05-2023 End: 01-05-2023 Evaluation and management of inpatient Emanuel Guerra MD Work Phone: [facility] Start: 01-05-2023 End: 01-05-2023 Subsequent hospital visit by physician Emanuel Guerra MD Work Phone: [facility] Comment on above: Multiple myeloma not having achieved remission (CMS/HCC) (Primary Dx) Start: 01-04-2023 Unknown [facility] Start: 01-04-2023 End: 01-04-2023 [facility] Start: 01-04-2023 End: 01-04-2023 Subsequent hospital visit by physician [facility] Start: 01-01-2023 Unknown RENUKA ADDISON [facility] Start: 12-31-2022 Unknown RENUKA ADDISON [facility] Start: 12-31-2022 End: 12-31-2022 Evaluation and management of inpatient [facility] Start: 12-31-2022 End: 12-31-2022 Subsequent hospital visit by physician [facility] Start: 12-29-2022 Telephone encounter Sydnee pink RN [facility] Start: 12-29-2022 Unknown EMANUEL OLIVIERKHALE [facility] Start: 12-28-2022 Telephone encounter Sydnee pink RN [facility] Start: 12-25-2022 Telephone encounter Sydnee pink RN [facility] Start: 12-24-2022 Telephone encounter Sydnee pink RN [facility] Start: 12-21-2022 Telephone encounter Sydnee pink RN [facility] Start: 12-17-2022 End: 12-19-2022 Evaluation and management of inpatient ISH TAO JR [facility] Start: 12-17-2022 End: 12-19-2022 Emergency department patient visit Josef Judd MD Work Phone: [facility] Comment on above: Surgical site infect ion (Primary Dx) Start: 12-17-2022 End: 12-19-2022 Evaluation and management of inpatient Josef Judd MD Work Phone: [facility] Start: 12-11-2022 Telephone encounter Sydnee pink RN [facility] Start: 12-02-2022 End: 12-09-2022 Evaluation and management of inpatient SALENA FLORES [facility] Start: 12-01-2022 End: 12-09-2022 Evaluation and management of inpatient Marcello Fisher DO Work Phone: [facility] Comment on above: Infected wound (Prim preston Dx); Cord compression (CMS/HCC); Weakness Start: 11-30-2022 Unknown EMANUEL GUERRA [facility] Start: 11-30-2022 End: 11-30-2022 Evaluation and management of inpatient Emanuel Guerra MD Work Phone: [facility] Start: 11-30-2022 End: 11-30-2022 Subsequent hospital visit by physician Emanuel Guerra MD Work Phone: [facility] Comment on above: Multiple myeloma not having achieved remission (CMS/HCC) (Primary Dx); 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) Start: 11-27-2022 End: 11-27-2022 ambulatory [facility] Start: 11-19-2022 Telephone encounter Michelle Eng PT [facility] Start: 11-10-2022 End: 11-21-2022 Evaluation and management of inpatient ISH ISH S~[id number] DINH TAO JR [facility] Start: 11-10-2022 End: 11-21-2022 Evaluation and management of inpatient Rico Bhat MD Work Phone: [facility] Comment on above: Cord compression (CM S/HCC) (Primary Dx); Thoracic spine tumor Start: 11-10-2022 Critical care ill/in jured patient addl 30 min Rico Bhat MD Work Phone: [facility] Start: 11-05-2022 End: 11-05-2022 ambulatory SALENA FLORES [facility] Start: 10-09-2022 ambulatory [id number] 361 JAQUELIN WOMACK [facility] Start: 10-09-2022 End: 10-09-2022 ambulatory SALENA FLORES [facility] Start: 10-09-2022 End: 10-09-2022 Office outpatient visit 25 minutes Salena Flores MANAGER BUSINESS Work Phone: [facility] [employer] Comment on above: Left shoulder pain, unspecified chronicity (Primary Dx); Upper back pain; Vitamin D deficiency, unspecified Start: 10-09-2022 End: 10-09-2022 Patient encounter procedure Salena Flores MANAGER BUSINESS Work Phone: [facility] [employer] Start: 10-05-2022 Refill Nati Rodarte MA [facility] [place] Comment on above: Vitamin D deficiency , unspecified Start: 10-05-2022 Refill Nati Rodarte MA [facility] [place] Start: 09-03-2022 Telephone encounter Salena Flores MANAGER BUSINESS Work Phone: [facility] [email or web address] Start: 08-21-2022 End: 08-21-2022 ambulatory SALENA FLORES [facility] Start: 08-21-2022 End: 08-21-2022 Evaluation and management of inpatient McSa Xr 1 [facility] Start: 08-21-2022 End: 08-21-2022 Subsequent hospital visit by physician McSa 1 [facility] Comment on above: Left shoulder pain, unspecified chronicity Start: 08-21-2022 End: 08-21-2022 Office outpatient visit 15 minutes Salena Flores MANAGER BUSINESS Work Phone: [facility] [email or web address] Comment on above: Left shoulder pain, unspecified chronicity (Primary Dx) Start: 08-21-2022 End: 08-21-2022 Patient encounter procedure Salena Flores MANAGER BUSINESS Work Phone: [facility] [email or web address] Start: 08-14-2022 ambulatory SALENA FLORES [facility] Start: 08-11-2022 Refill Salena arguelles MANAGER BUSINESS Work Phone: [facility] [place] Comment on above: Chest discomfort Start: 08-11-2022 Refill Salena arguelles MANAGER BUSINESS Work Phone: [facility] [place] Start: 08-05-2022 End: 08-05-2022 ambulatory SALENA DARÍO SANDRA [facility] Start: 08-05-2022 End: 08-05-2022 Clinical Support Sherry Ambrose LPN [facility] [place] Comment on above: COVID-19 vaccine adm inistered (Primary Dx) Start: 08-05-2022 End: 08-05-2022 Clinical Support Sherry Ambrose LPN [facility] [place] Start: 07-30-2022 End: 07-30-2022 ambulatory SALENA DARÍO SANDRA [facility] Start: 07-30-2022 End: 07-30-2022 Office outpatient visit 25 minutes Salena Flores MANAGER BUSINESS Work Phone: [facility] [place] Comment on above: Mixed hyperlipidemia (Primary Dx); Essential hypertension; Hypothyroidism, unspecified type; Upper back pain on left side; Vitamin D deficiency Start: 07-30-2022 End: 07-30-2022 Patient encounter procedure Salena Flores MANAGER BUSINESS Work Phone: [facility] [place] Start: 07-18-2022 Refill Petros Molina Work Phone: [facility] [place] Comment on above: Essential hypertensi on; Mixed hyperlipidemia Start: 07-18-2022 Refill Petros Molina Work Phone: [facility] [place] Start: 06-15-2022 ambulatory ARMAND JOSÉ [facility] Start: 06-15-2022 End: 06-15-2022 Office outpatient new 45 minutes Armand José MD Work Phone: [facility] Comment on above: Upper back pain Start: 06-15-2022 End: 06-15-2022 Patient encounter procedure Armand José MD Work Phone: [facility] Start: 05-29-2022 Telephone encounter Bashir reyna MD Work Phone: [facility] Start: 05-19-2022 Telephone encounter Salena Flores MANAGER BUSINESS Work Phone: [facility] [place] Start: 05-13-2022 Telephone encounter Nati Rodarte MA [facility] [place] Comment on above: Referral Start: 05-07-2022 End: 05-07-2022 ambulatory SALENA FLORES [facility] Start: 05-07-2022 End: 05-07-2022 Evaluation and management of inpatient McSa Xr 2 [facility] Start: 05-07-2022 End: 05-07-2022 Subsequent hospital visit by physician McSa 2 [facility] Comment on above: Upper back pain on l eft side Start: 05-07-2022 End: 05-07-2022 Office outpatient visit 15 minutes Salena Flores MANAGER BUSINESS Work Phone: [facility] [place] [employer] Comment on above: Upper back pain on l eft side (Primary Dx) Start: 05-07-2022 End: 05-07-2022 Patient encounter procedure Salena Flores MANAGER BUSINESS Work Phone: [facility] [place] Start: 04-29-2022 End: 04-29-2022 ambulatory SALENA FLORES [facility] Start: 04-29-2022 End: 04-29-2022 Office outpatient visit 15 minutes Salena Flores MANAGER BUSINESS Work Phone: [facility] [place] [employer] Comment on above: Upper back pain (Sandra ollie Dx) Start: 04-29-2022 End: 04-29-2022 Patient encounter procedure Salena Flores MANAGER BUSINESS Work Phone: [facility] [place] Start: 04-07-2022 End: 04-07-2022 ambulatory SALENA FLORES [facility] Start: 04-07-2022 End: 04-07-2022 Office outpatient visit 15 minutes Salena Flores MANAGER BUSINESS Work Phone: [facility] [place] [employer] Comment on above: Strain of trapezius muscle, left, subsequent encounter (Primary Dx) Start: 04-07-2022 End: 04-07-2022 Patient encounter procedure Salena Flores MANAGER BUSINESS Work Phone: [facility] [place] [employer] Start: 03-12-2022 Refill Petros Florida M D Work Phone: [facility] [place] Comment on above: Vitamin D deficiency , unspecified Start: 03-12-2022 Refill Petros Florida M D Work Phone: [facility] [place] [employer] Start: 02-16-2022 End: 02-16-2022 ambulatory SALENA FLORES [facility] Start: 02-16-2022 End: 02-16-2022 Office outpatient visit 25 minutes Salena Flores MANAGER BUSINESS Work Phone: [facility] [place] [employer] Comment on above: Strain of left trape zius muscle, initial encounter (Primary Dx); Chest discomfort Start: 02-16-2022 End: 02-16-2022 Patient encounter procedure Salena Flores MANAGER BUSINESS Work Phone: [facility] [place] [employer] Start: 01-29-2022 End: 01-29-2022 ambulatory SALENA FLORES [facility] Start: 01-29-2022 End: 01-29-2022 Office outpatient visit 25 minutes Salena Flores MANAGER BUSINESS Work Phone: [facility] [place] Comment on above: Chest discomfort (Pr imary Dx); Hypothyroidism, unspecified type; Essential hypertension; Mixed hyperlipidemia Start: 01-29-2022 End: 01-29-2022 Patient encounter procedure Salena Chanel Sandra MANAGER BUSINESS Work Phone: [facility] [place] Start: 10-08-2021 End: 10-08-2021 ambulatory Sherry Ambrose LPN [facility] [place] Comment on above: COVID-19 vaccine adm inistered (Primary Dx) Start: 10-08-2021 End: 10-08-2021 Immunization Sherry Ambrose SERVICE MECHANIC [facility] [place] Start: 09-16-2021 End: 09-16-2021 Telephone encounter Petros Bartholomew MD Work Phone: [facility] [place] Comment on above: medication refill Start: 08-20-2021 Refill [facility]ina Work [facility]: [facility] [place] Comment on above: Hypothyroidism, unsp ecified Start: 08-20-2021 End: 08-20-2021 Refill Petros Bartholomew MD Work Phone: [facility] [place] Start: 08-04-2021 Orders Only Petros Molina Work Phone: [facility] [place] Start: 08-04-2021 End: 08-04-2021 Orders Only Petros Bartholomew MD Work Phone: [facility] [place] Start: 07-31-2021 End: 07-31-2021 Office outpatient visit 25 minutes Petros Bartholomew MD Work Phone: [facility] [place] Comment on above: Hypothyroidism, unsp ecified type (Primary Dx); Mixed hyperlipidemia; Essential hypertension; Vitamin D deficiency Start: 07-31-2021 End: 07-31-2021 Patient encounter procedure Petros Bartholomew MD Work Phone: [facility] [place] Procedures Date Procedure Procedure Detail Performing Clinician Start: 06-28-[address] Blade Milner DO Work Phone: Start: 06-28-2025 Serum inorganic phos phate measurement Dr. Blade Milner DO Work Phone: Start: 05-31-2025 Albumin/Globulin ratio Dr. Blade Milner DO Work Phone: Start: 05-31-[address] Blade Milner DO Work Phone: Start: 05-31-[address] M [address] Blade Milner DO Work Phone: Comment on above: Result confirmed on concentration. Start: 05-31-2025 Serum inorganic phos phate measurement Dr. Blade Milner DO Work Phone: Start: 05-31-2025 Urine lambda light c shantel measurement Dr. Blade Milner DO Work Phone: Start: 05-02-2025 Albumin/Globulin ratio Dr. Blade Milner DO Work Phone: Start: 05-02-[address] Blade Milner DO Work Phone: Start: 05-02-[address] M [address] Blade Milner DO Work Phone: Comment on above: Result confirmed on concentration. Start: 05-02-2025 Urine lambda light c shantel measurement Dr. Blade Milner DO Work Phone: Start: 04-05-2025 Albumin/Globulin ratio Dr. Blade Milner DO Work Phone: Start: 04-05-[address] Blade Milner DO Work Phone: Start: 04-05-[address] Blade Milner DO Work Phone: Comment on above: Result confirmed on concentration. Start: 04-05-2025 Urine lambda light c shantel measurement Dr. Blade Milner DO Work Phone: Start: 03-16-2025 CBC AND ELECTRONIC DIFF Gisel Wolf MD Work Phone: Start: 03-16-2025 Complete blood count with white cell differential, automated Gisel Wolf MD Work Phone: Start: 03-16-2025 Comprehensive metabo lic panel Gisel Wolf MD Work Phone: Start: 03-16-2025 SPE SERUM TOTAL PROTEIN Gisel Wolf MD Work Phone: Start: 03-08-2025 Albumin/Globulin ratio Dr. Blade Milner DO Work Phone: Start: 03-08-[address] Blade Milner DO Work Phone: Start: 03-08-[address] M measurement Dr. Blade Milner DO Work Phone: Comment on above: Result confirmed on concentration. Start: 03-08-2025 Urine lambda light c shantel measurement Dr. Blade Milner DO Work Phone: Start: 02-01-2025 Albumin/Globulin ratio Dr. Blade Milner [...] Start: 01-04-[address] M measurement Dr. Blade Milner DO [...] Dr. Blade Milner DO Work Phone: Start: 03-08-2024 CBC AND ELECTRONIC DIFF Gisel [...] Work Phone: Start: 03-02-2023 Antibody screen RENUKA WALKER Comment on above: Performed By: #### 3 [id number] ####[facility] [id number] [place] [address] Start: 01-29-2023 Diagnostic bone vineet ow biopsies & aspirations Nia Knight MD Work Phone: Start: 01-29-2023 Blood count platelet automated Nia Knight MD Work Phone: Start: 01-05-2023 RAD ONC [...] Basic metabolic pane l calcium total Blade Palm DO Work Phone: Start: 12-08-2022 Basic metabolic pane l calcium total Blade Price DO Work Phone: Start: 12-07-2022 Basic metabolic pane l calcium total Blade Price DO Work Phone: Start: 12-06-2022 Basic metabolic pane l calcium total Blade Price DO Work Phone: Start: 12-06-2022 CBC W Auto Different ial panel - Blood Liliana Esteban MANAGER BUSINESS Work Phone: Start: 12-06-2022 MANUAL DIFFERENTIAL - SYSMEX WAM Liliana Esteban MANAGER BUSINESS Work Phone: Start: 12-05-2022 Blood count complete automated Liliana Esteban MANAGER BUSINESS Work Phone: Start: 12-05-2022 Basic metabolic pane l calcium total Blade Price DO Work Phone: Start: 12-04-2022 Basic metabolic pane l calcium total Blade Price DO Work Phone: Start: 12-03-2022 Basic metabolic pane l calcium total Blade Price DO Work Phone: Start: 12-02-2022 Radiological guidanc [...] 12-01-2022 Ct cervical spine w/contrast material Marcello Fisher DO Work Phone: Start: 12-01-2022 End: 12-01-2022 Basic metabolic panel calcium total Marcello Fisher DO Work Phone: Start: 12-01-2022 C-reactive protein Jane Rodriguez PA Work Phone: Start: 12-01-2022 CBC W Auto Different ial panel - Blood Marcello Fisher DO Work Phone: Start: 12-01-2022 Culture bacterial bl ood aerobic w/id isolates Michelle Rodriguez PA Work Phone: Start: 12-01-2022 EXTRA TUBES Marcello camara DO Work Phone: Start: 12-01-2022 MANUAL DIFFERENTIAL - S[facility] WAM Marcello Fisher DO Work Phone: Start: 12-01-2022 SST - GOLD Marcello camara DO Work Phone: Start: 11-30-2022 Adult depression scr eening assessment Emanuel Guerra MD Work Phone: Start: 11-16-2022 Basic metabolic pane l calcium total Tomás Cortez MD Work Phone: Start: 11-15-2022 Basic metabolic pane l calcium total Tomás Cortez MD Work Phone: Start: 11-14-2022 Radiologic exam abdo men 1 view Louie Montiel DO Work Phone: Start: 11-12-2022 KAPPA-LAMBDA QUANTIT ATIVE FREE LIGHT CHAINS Renuka Addsion MD Work Phone: Start: 11-11-2022 Ct thoracic [...] aggregation in vitro each agent Rich Castillo MANAGER BUSINESS Work Phone: Start: 11-11-2022 Immunofixj electroph oresis other fluids Renuka Addison MD Work Phone: Start: 11-11-2022 CBC W Auto Different ial panel - Blood Fahad Mccoy MD Work Phone: Start: 11-11-2022 Comprehensive metabo lic panel Fahad Mccoy MD Work Phone: Start: 11-10-2022 Antibody screen RENUKA WAKLER Comment on above: Performed By: #### 3 [id number] ####[facility] [id number] [place] [address] Start: 11-10-2022 Assay of gammaglobul in iga igd igg igm each Renuka Addison MD Work Phone: Start: 11-10-2022 KAPPA-LAMBDA QUANTIT ATIVE FREE LIGHT CHAINS Renuka Addison MD Work Phone: Start: 11-10-2022 Prothrombin time Rich Castillo MANAGER BUSINESS Work Phone: Start: 11-10-2022 Urnls dip stick/tabl et reagent auto microscopy Fahad Mccoy MD Work Phone: Start: 11-10-2022 EXTRA TUBES Rico dove MD Work Phone: Start: 11-10-2022 DAN URINE CULTURE TUBE Rico Bhat MD Work Phone: Start: 11-10-2022 YELLOW URINE NO ADDITIVE Rico Bhat MD Work Phone: Start: 11-10-2022 Ct abdomen & pelvis w/contrast material Andrey Perkins MD Work Phone: Start: 11-10-2022 Ct thorax w/contrast material Andrey Perkins MD [...] compl ete minimum 2 views Salena Flores MANAGER BUSINESS Work Phone: Start: 08-14-2022 Lipid 1996 panel - S raudel or Plasma Us 2 Work Phone: Start: 05-07-2022 Radex spine cervical 4 or 5 views Salena Flores MANAGER BUSINESS Work Phone: Start: 01-29-2022 Ecg routine ecg w/le ast 12 lds w/i&r Salena Flores MANAGER BUSINESS Work Phone: Start: 07-31-2021 Adult depression scr eening assessment Petros Bartholomew MD Work Phone: Start: 01-22-2021 Adult depression scr eening assessment Sherry Ambrose SERVICE MECHANIC History of radiation therapy History of radiation therapy Dr. Jenn Perez Work Phone: History of radiation therapy History of radiation therapy Dr. Burt Kaba MD History of radiation therapy History of radiation therapy Dr. Oren Olivera MD Plan of Treatment Date Care Activity Detail Author Start: 2032 RSV Vaccine (1 - 1-dose 75+ series) RSV Vaccine (1 - 1-dose 75+ series) [facility] Start: 09-06-2027 Diabetes Screening Diabetes Screening [facility] Start: 08-14-2027 Lipid panel [facility] Start: 07-31-2026 Lipid panel Cholesterol Screening (Lipid Panel) [facility] Start: 11-30-2025 End: 11-30-2025 Patient encounter procedure 11/30/2025 10:00 AM EST Office Visit [facility] [address] [place] [address] Ric Souza MD [address] [place] [id number] 12 months US prior(PT is scheduling US) [facility] Comment on above: 12 months US prior(PT is scheduling US) Start: 09-12-2025 End: 09-12-2025 Patient encounter procedure 09/12/2025 10:40 AM EST Office Visit Division of Hematology & Oncology at [facility] [address] [place] [phone] Gisel Wolf MD [address] [place] [id number] Division of Hematology & Oncology at [facility] Start: 06-28-2025 Serum immunofixation [facility] Start: 06-28-2025 [facility] Start: 05-31-2025 Serum immunofixation [facility] Start: 05-31-2025 [facility] Start: 05-28-2025 Influenza vaccination Influenza Vaccine (Season Ended) [facility] Start: 05-02-2025 [facility] Start: 04-05-2025 Serum immunofixation [facility] Start: 04-05-2025 [facility] Start: 03-12-2025 End: 03-12-2025 ambulatory 03/12/2025 9:45 AM EDT OT/PT/Speech Visit [facility] Occupation [facility] [address] [place] [address] Leticia Bowie, OT/L Driving rehabilitation [facility] Occupation [facility] Comment on above: Driving rehabilitation Start: 03-08-2025 End: 04-07-2025 IMMUNOGLOBULIN FREE CHAINS IMMUNOGLOBULIN FREE CHAINS Lab Routine Multiple myeloma, remission status unspecified Expected: 03/08/2025 (Approximate), Expires: 04/07/2025 [facility] Comment on above: Expected: 03/08/2025 (Approximate), Expi res: 04/07/2025 Start: 03-08-2025 End: 04-07-2025 MONOCLONAL PROT IMMUNO, SERUM MONOCLONAL PROT IMMUNO, SERUM Lab Routine Multiple myeloma, remission status unspecified Expected: 03/08/2025 (Approximate), Expires: 04/07/2025 [facility] Comment on above: Expected: 03/08/2025 (Approximate), Expi res: 04/07/2025 Start: 03-08-2025 Serum immunofixation [facility] Start: 03-08-2025 [facility] Start: 01-31-2025 End: 02-01-2025 [facility] Start: 01-31-2025 Bacteria identified in Urine by Culture Urine Culture [facility] Start: 01-04-2025 Serum immunofition [facility] Start: 01-04-2025 [facility] Start: 12-07-2024 Serum immunofixation [facility] Start: 12-07-2024 [facility] Start: 11-28-2024 End: 11-28-2024 Nursing evaluation of patient and report 11/28/2024 3:00 PM EST Nurse Visit [facility] [address] [place] [address] Christin Nurse Urol [address] [place] [address] Walls teach PT how to CIC [facility] Comment on above: seeing Dr. Green- teach PT how to CIC Start: 11-28-2024 End: 11-28-2024 Patient encounter procedure 11/28/2024 2:30 PM EST Office Visit [facility] [address] [place] [phone] Ric Souza MD [address] [place] [address] Cysto US prior [facility] Comment on above: Cysto US prior Start: 11-10-2024 End: 11-10-2024 Patient encounter procedure 11/10/2024 10:00 AM EST Office Visit [facility] [address] [place] [address] Ric Souza MD [address] [place] [address] VANEGAS CARE/REMOVAL OF VANEGAS AFTER 2 YEARS OF USE [facility] Comment on above: VANEGAS CARE/REMOVAL OF VANEGAS AFTER 2 YEAR S OF USE Start: 10-02-2024 [facility] Start: 09-27-2024 Advance Directive Discussion Advance Directive Discussion [facility] Start: 09-06-2024 End: 09-06-2024 Patient encounter procedure 09/06/2024 10:40 AM EST Office Visit Division [facility] H[facility]ology [facility] at [facility] [place] [facility] [address] [place] [address] Gisel Wolf MD [address] [place] [address] Division of Hematology & Oncology at [facility] Start: 08-13-2024 Patient discharge [facility] Start: 08-11-2024 Development of care plan [facility] Start: 08-08-2024 Referral to service [facility] Start: 08-07-2024 Developing a treatment plan [facility] Start: 08-07-2024 Development of care plan [facility] Start: 08-02-2024 [facility] Start: 08-02-2024 Application of elastic bandage [facility] Start: 07-24-2024 Wound care [facility] Start: 07-14-2024 Maintenance of drainage tube [facility] Start: 07-11-2024 Development of care plan [facility] Start: 07-11-2024 Developing a treatment plan [facility] Start: 07-11-2024 [facility] Start: 07-10-2024 Consultation [facility] Start: 07-10-2024 Contact precautions [facility] Start: 07-10-2024 Following clinical pathway protocol [facility] Start: 07-10-2024 Venous catheter care management [facility] Start: 07-10-2024 Consultation for treatment [facility] Start: 07-10-2024 Admission procedure [facility] Start: 07-10-2024 Introduction of urinary catheter [facility] Start: 07-10-2024 Measuring intake and output [facility] Start: 07-10-2024 Patient referral to dietitian [facility] Start: 07-10-2024 Referral to occupational therapist [facility] Start: 07-10-2024 Referral to service [facility] Start: 07-10-2024 Vital signs measurements [facility] Start: 07-10-2024 [facility] Start: 07-10-2024 Patient referral to [facility] Start: 06-21-2024 End: 06-21-2024 Patient encounter procedure 06/21/2024 2:30 PM EDT Appointment [facility] [address] [place] [address] Mickey Munoz, DO [address], [place] [id number] [facility] Start: 06-14-2024 End: 06-14-2024 Patient encounter procedure 06/14/2024 10:30 AM EDT Appointment [facility] [address] [place] [address] Mickey Munoz, DO [address], [place] [id number] [facility] Start: 06-05-2024 End: 06-05-2024 Patient encounter procedure 06/05/2024 10:30 AM EDT Appointment [facility] [address] [place] [address] Leanna Osborne, OFFSET PROOF PRESS OPERATOR - MERCHANDISING DIRECTOR [address] [place] [address] [place] [address] [facility] Start: 05-28-2024 Covid-19 Vaccine ( season) Covid-19 Vaccine ( season) [facility] Start: 05-28-2024 COVID-19 Vaccine ( season) COVID-19 Vaccine ( season) [facility] Start: 05-28-2024 Covid-19 Vaccine () Covid-19 Vaccine () [facility] Start: 05-28-2024 Influenza vaccination Influenza Vaccine (#1) [facility] Start: 05-24-2024 End: 05-24-2024 Patient encounter procedure 05/24/2024 1:30 PM EDT Appointment [facility] [address] [place] [address] Mickey Munoz, DO [address], [place] [id number] [facility] Start: 05-17-2024 End: 05-17-2024 Patient encounter procedure 05/17/2024 12:45 PM EDT Appointment [facility] [address] [place] [address] Mickey Munoz, DO [address], [place] [address] [facility] HBO Start: 05-08-2024 End: 05-08-2024 Patient encounter procedure 05/08/2024 10:30 AM EDT Appointment [facility] [address] [place] [address] Leanna Osborne, OFFSET PROOF PRESS OPERATOR - MERCHANDISING DIRECTOR [address] [place] [address] [place] [address] [facility] HBO Start: 05-03-2024 End: 05-03-2024 Patient encounter procedure 05/03/2024 2:00 PM EDT Appointment [facility] [address] [place] [address] Mickey Munoz, DO [address], [place] [phone] [facility] HBO Start: 04-26-2024 End: 04-26-2024 Patient encounter procedure 04/26/2024 3:15 PM EDT Appointment [facility] [address] [place] [address] Mickey Munoz, DO [address], [place] [id number] [facility] Start: 04-19-2024 End: 04-19-2024 Patient encounter procedure 04/19/2024 12:45 PM EDT Appointment [facility] [address] [place] [address] Mickey Munoz, DO [address], [place] [phone] [facility] HBO Start: 04-11-2024 End: 04-11-2024 Patient encounter procedure 04/11/2024 2:30 PM EDT Appointment [facility] [address] [place] [address] Alex Barrientos DPM [address] [place] [address] [facility] Start: 04-07-2024 End: 04-07-2024 Patient encounter procedure 04/07/2024 10:45 AM EDT Appointment [facility] [address] [place] [address] [facility] Start: 04-05-2024 End: 04-05-2024 Patient encounter procedure 04/05/2024 1:30 PM EDT Appointment [facility] [address] [place] [address] Mickey Munoz, DO [address], [place] [address] [facility] Start: 03-29-2024 End: 03-29-2024 Patient encounter procedure 03/29/2024 1:30 PM EDT Appointment [facility] [address] [place] [address] Mickey Munoz, DO [address] [place] [address] [facility] HBO Start: 03-08-2024 End: 03-08-2024 Patient encounter procedure 03/08/2024 11:00 AM EDT Office Visit Division of Hematology & Oncology at [facility] [address] [place] [address] Gisel Wolf MD [address] [place] [address] Division of Hematology & Oncology at [facility] Start: 03-03-2024 End: 04-02-2024 MONOCLONAL PROT IMMUNO, SERUM MONOCLONAL PROT IMMUNO, SERUM Lab Routine Multiple myeloma, remission status unspecified Expected: 03/03/2024 (Approximate), Expires: 04/02/2024 [facility] Comment on above: Expected: 03/03/2024 (Approximate), Expi res: 04/02/2024 Start: 12-22-2023 Patient referral [facility] Work Phone: Start: 12-20-2023 Falls Risk Assessment Falls Risk Assessment [facility] Start: 12-19-2023 Hypertension/CHF/CAD Annual BMP Blood Test Hypertension/CHF/CAD Annual BMP Blood Test [facility] Start: 12-10-2023 Falls Risk Assessment Falls Risk Assessment [facility] Start: 12-10-2023 Hypertension/CHF/CAD Annual BMP Blood Test Hypertension/CHF/CAD Annual BMP Blood Test [facility] Start: 12-09-2023 Anaerobic microbial culture Anaerobic Culture [facility] Start: 12-05-2023 Hypertension/CHF/CAD Annual BMP Blood Test Hypertension/CHF/CAD Annual BMP Blood Test [facility] Start: 12-04-2023 Falls Risk Assessment Falls Risk Assessment [facility] Start: 12-03-2023 Social Influencers of Health Screening Social Influencers of Health Screening [facility] Start: 12-01-2023 Adolescent depression screening assessment Depression Screening [facility] Start: 11-24-2023 [place] and lambda light chains [facility] Start: 11-24-2023 Serum immunofixation [facility] Start: 11-21-2023 Falls Risk Assessment Falls Risk Assessment [facility] Start: 11-19-2023 Falls Risk Assessment Falls Risk Assessment [facility] Start: 11-16-2023 Hypertension/CHF/CAD Annual BMP Blood Test Hypertension/CHF/CAD Annual BMP Blood Test [facility] Start: 10-27-2023 [place] and lambda light chains [facility] Start: 10-27-2023 Serum immunofixation [facility] Start: 09-29-2023 Patient referral [facility] Work Phone: Start: 09-08-2023 End: 09-08-2023 Patient encounter procedure 09/08/2023 11:00 AM EST Office Visit Division of Hematology & Oncology at [facility] [address] [place] [address] Gisel Wolf MD [address] [place] [phone] Division of Hematology & Oncology at [facility] Start: 09-07-2023 COVID-19 Vaccine ( season) COVID-19 Vaccine () [facility] Start: 09-02-2023 End: 10-02-2023 IMMUNOGLOBULIN FREE CHAINS IMMUNOGLOBULIN FREE CHAINS Lab Routine Multiple myeloma, remission status unspecified Expected: 09/02/2023 (Approximate), Expires: 10/02/2023 [facility] Comment on above: Expected: 09/02/2023 (Approximate), Expi res: 10/02/2023 Start: 09-02-2023 End: 10-02-2023 MONOCLONAL PROT IMMUNO, SERUM MONOCLONAL PROT IMMUNO, SERUM Lab Routine Multiple myeloma, remission status unspecified Expected: 09/02/2023 (Approximate), Expires: 10/02/2023 [facility] Comment on above: Expected: 09/02/2023 (Approximate), Expi res: 10/02/2023 Start: 08-26-2023 Anaerobic Culture Anaerobic Culture [facility] Start: 08-26-2023 Microscopic observation [Identifier] in Unspecified specimen by Gram stain Gram Stain [facility] Start: 08-26-2023 Wound Culture Wound Culture [facility] Start: 08-14-2023 Hypertension/CHF/CAD Annual BMP Blood Test Hypertension/CHF/CAD Annual BMP Blood Test [facility] Start: 08-04-2023 Venous catheter care management [facility] Start: 07-17-2023 [facility] Start: 05-28-2023 Influenza vaccination [facility] Start: 04-14-2023 End: 04-14-2023 Patient encounter procedure 04/14/2023 Office Visit Hematology Gisel Wolf MD [address] [place] [phone] Division of Hematology & Oncology Start: 04-09-2023 End: 05-09-2023 IMMUNOGLOBULIN FREE CHAINS IMMUNOGLOBULIN FREE CHAINS Lab Routine Multiple myeloma, remission status unspecified Expected: 04/09/2023 (Approximate), Expires: 05/09/2023 [facility] Comment on above: Expected: 04/09/2023 (Approximate), Expi res: 05/09/2023 Start: 04-09-2023 End: 05-09-2023 MONOCLONAL PROT IMMUNO, SERUM MONOCLONAL PROT IMMUNO, SERUM Lab Routine Multiple myeloma, remission status unspecified Expected: 04/09/2023 (Approximate), Expires: 05/09/2023 [facility] Comment on above: Expected: 04/09/2023 (Approximate), Expi res: 05/09/2023 Start: 02-04-2023 End: 02-04-2023 Patient encounter procedure 02/04/2023 Appointment Radiation Oncology Emanuel Guerra MD [address] [place] [address] [facility] Start: 02-03-2023 End: 02-04-2024 IR Tunneled CVAD Cmplt Replacement w Subcutaneous Port IR Tunneled CVAD Cmplt Replacement w Subcutaneous Port Imaging Routine Multiple myeloma not having achieved remission (CMS/HCC) Expected: 02/03/2023, Expires: 02/04/2024 [employer] Work Phone: Comment on above: Expected: 02/03/2023, Expires: Start: 01-28-2023 End: 01-28-2023 Patient encounter procedure 01/28/2023 Office Visit Family Medicine Salena Flores, TIP [address] [phone] [facility] Start: 01-05-2023 End: 01-05-2023 Patient encounter procedure 01/05/2023 Appointment Radiation Oncology Emanuel Guerra MD [address] [facility] [address] [place], [place] [phone] [facility] Start: 01-04-2023 End: 01-04-2023 Patient encounter procedure [facility] Start: 01-01-2023 End: 01-01-2023 Patient encounter procedure [facility] Start: 12-31-2022 End: 12-31-2022 Patient encounter procedure 12/31/2022 Appointment Radiation Oncology [facility] Start: 12-30-2022 End: 12-30-2022 Patient encounter procedure 12/30/2022 Appointment Radiation Oncology [facility] Start: 12-29-2022 End: 12-29-2022 Patient encounter procedure [facility] Start: 12-28-2022 End: 12-28-2022 Patient encounter procedure 12/28/2022 Appointment Radiation Oncology Ric Rodriguez MD [address] [facility] [address] [place] [phone] [facility] Start: 12-25-2022 End: 12-25-2022 Patient encounter procedure [facility] Start: 12-24-2022 End: 12-24-2022 Patient encounter procedure 12/24/2022 Appointment Radiation Oncology [facility] Start: 12-23-2022 End: 12-23-2022 Patient encounter procedure 12/23/2022 Appointment Radiation Oncology [facility] Start: 12-22-2022 End: 12-22-2022 Patient encounter procedure [facility] Start: 12-21-2022 End: 12-21-2022 Patient encounter procedure [facility] Start: 12-18-2022 End: 12-18-2022 Patient encounter procedure 12/18/2022 Appointment Radiation Oncology Emanuel Guerra MD [address] [phone] [facility] Start: 12-17-2022 End: 12-17-2022 Patient encounter procedure 12/17/2022 Appointment Radiation Oncology [facility] Start: 12-16-2022 End: 12-16-2022 Patient encounter procedure 12/16/2022 Appointment Radiation Oncology [facility] Start: 12-15-2022 End: 12-15-2022 Patient encounter procedure 12/15/2022 Appointment Radiation Oncology Emanuel Guerra MD [address] [facility] [address] [place] [phone] [facility] Start: 12-14-2022 End: 12-14-2022 Patient encounter procedure 12/14/2022 Appointment Radiation Oncology Emanuel Guerra MD [address] [facility] [address] [place] [phone] [facility] Start: 12-11-2022 End: 12-11-2022 Patient encounter procedure 12/11/2022 Appointment Radiation Oncology Emanuel Guerra MD [address] [phone] [facility] Start: 12-10-2022 End: 12-10-2022 Patient encounter procedure 12/10/2022 Appointment Radiation Oncology [facility] Start: 12-09-2022 End: 12-09-2022 Patient encounter procedure 12/09/2022 Appointment Radiation Oncology [facility] Start: 12-08-2022 End: 12-08-2022 Patient encounter procedure 12/08/2022 Appointment Radiation Oncology Emanuel Guerra MD [address] [facility] [address] [place] [phone] [facility] Start: 12-07-2022 End: 12-07-2022 Patient encounter procedure 12/07/2022 Appointment Radiation Oncology Emanuel Guerra MD [address] [place] [phone] [facility] Start: 11-30-2022 End: 06-02-2023 Rad Onc Treatment Planning Simulation Rad Onc Treatment Planning Simulation Radiation Oncology Routine Multiple myeloma not having achieved remission (CMS/HCC) Expected: 11/30/2022 (Approximate), Expires: 06/02/2023 [employer] Work Phone: Comment on above: Expected: 11/30/2022 (Approximate), Expi res: 06/02/2023 Start: 11-30-2022 End: 11-30-2022 Patient encounter procedure 11/30/2022 Appointment Radiation Oncology Emanuel Guerra MD [address] [facility] [address] [place] [phone] [facility] Start: 09-30-2022 COVID-19 Vaccine (4 - Booster) COVID-19 Vaccine (4 - Booster) [facility] Start: 09-02-2022 COVID-19 VACCINE (2 - Moderna risk series) COVID-19 VACCINE (2 - Moderna risk series) [facility] Start: 09-02-2022 COVID-19 VACCINE (3 - Mixed Product risk series) COVID-19 VACCINE (3 - Mixed Product risk series) [facility] Start: 08-05-2022 End: 08-05-2022 Clinical Support 08/05/2022 Clinical Support Family Medicine [facility] Start: 07-31-2022 Adolescent depression screening assessment Depression Screening [facility] Start: 07-31-2022 Depression Screening Depression Screening [facility] Start: 07-31-2022 Hypertension/CHF/CAD Annual BMP Blood Test Hypertension/CHF/CAD Annual BMP Blood Test [facility] Start: 07-30-2022 End: 07-30-2022 Patient encounter procedure 07/30/2022 Office Visit Family Medicine Salena Flores NP [address] [phone] [facility] Start: 2022 Abdominal aortic aneurysm screening ABDOMINAL AORTIC ANEURYSM HIGH RISK SCREEN [facility] Start: 2022 Falls Risk Assessment Falls Risk Assessment [facility] Start: 2022 Pneumococcal Vaccine: 65+ Years (1 - PCV) Pneumococcal Vaccine: 65+ Years (1 - PCV) [facility] Start: 06-27-2022 Medicare Annual Wellness Visit Medicare Annual Wellness Visit [facility] Start: 06-15-2022 End: 06-15-2022 Patient encounter procedure 06/15/2022 Office Visit Neurosurgery Armand José MD [address] [place] [phone] [facility] Start: 05-28-2022 Influenza vaccination [facility] Start: 02-05-2022 COVID-19 Vaccine (4 - Booster) COVID-19 Vaccine (4 - Booster) [facility] Start: 01-29-2022 End: 01-29-2022 Patient encounter procedure 01/29/2022 Office Visit Family Medicine Salena Flores, TIP [address] [phone] [facility] Start: 01-22-2022 Adolescent depression screening assessment Depression Screening [facility] Start: 12-03-2021 COVID-19 Vaccine (4 - Booster) COVID-19 Vaccine (4 - Booster) [facility] Start: 10-08-2021 End: 10-08-2021 ambulatory 10/08/2021 Immunization Family Medicine [facility] Start: 09-05-2021 COVID-19 Vaccine (3 - Booster) COVID-19 Vaccine (3 - Booster) [facility] Start: 05-28-2021 Influenza vaccination Influenza Vaccine (#1) [facility] Start: 04-03-2021 COVID-19 Vaccine (2 - Moderna 3-dose booster series) COVID-19 Vaccine (2 - Moderna 3-dose booster series) [facility] Start: 10-12-2019 Hepatitis C screening Hepatitis C Screening [facility] Start: 10-12-2019 HIV screening HIV Screening [facility] Start: 10-12-2019 Hypertension/CHF/CAD Annual BMP Blood Test Hypertension/CHF/CAD Annual BMP Blood Test [facility] Start: 10-12-2019 Lipid panel Cholesterol Screening (Lipid Panel) [facility] Start: 10-12-2019 Screening for malignant neoplasm of colon Colorectal Cancer Screening: Colonoscopy [facility] Start: 10-12-2019 Social Influencers of Health Screening Social Influencers of Health Screening [facility] Start: 2017 RSV Immunization aged 60 or older (1 - 1-dose 60+ series) RSV Immunization aged 60 or older (1 - 1-dose 60+ series) [facility] Start: 2017 RSV Vaccine (1 - Risk 60-74 years 1-dose series) RSV Vaccine (1 - Risk 60-74 years 1-dose series) [facility] Start: 2012 Prostate specific antigen measurement Prostate Cancer Screening Discussion [facility] Start: 2007 Pneumococcal Vaccine: 50+ (1 of 1 - PCV) Pneumococcal Vaccine: 50+ (1 of 1 - PCV) [facility] Start: 2007 Prostate specific antigen measurement PROSTATE CANCER SCREENING DISCUSSION [facility] Start: 2007 Shingrix Vaccine (1 of 2) Shingrix Vaccine (1 of 2) [facility] Start: 2007 Zoster Vaccines (1 of 2) Zoster Vaccines (1 of 2) [facility] Start: 2002 Diabetes Screening Diabetes Screening [facility] Start: 2002 Prostate specific antigen measurement Prostate Cancer Screening Discussion [facility] Start: 2002 Screening for malignant neoplasm of colon [facility] Start: 1997 Lipid panel LIPID SCREENING [facility] Start: 1992 Lipid panel Lipid Screening [facility] Start: 1976 DTaP,Tdap,and Td Vaccines (1 - Tdap) DTaP,Tdap,and Td Vaccines (1 - Tdap) [facility] Start: 1976 DTaP/Tdap/Td Vaccines (1 - Tdap) DTaP/Tdap/Td Vaccines (1 - Tdap) [facility] Start: 1976 Pneumococcal vaccination PNEUMOCOCCAL VACCINE SERIES (1 of 2 - PCV) [facility] Start: 1976 Pneumococcal Vaccine: 50+ (1 of 2 - PCV) Pneumococcal Vaccine: 50+ (1 of 2 - PCV) [facility] Start: 1976 Shingrix Vaccine (1 of 2) Shingrix Vaccine (1 of 2) [facility] Start: 1976 Third diphtheria, tetanus and acellular pertussis (DTaP) vaccination TDAP (ADULT) [facility] Start: 1976 Urine microalbumin profile DTaP,Tdap,Td Vaccine (1 - Tdap) [facility] Start: 1976 Zoster vaccine hzv live for subcutaneous use ZOSTER (SHINGLES) VACCINE (1 of 2) [facility] Start: 1976 Zoster Vaccines (1 of 2) Zoster Vaccines (1 of 2) [facility] Start: 1975 Anxiety Screening Anxiety Screening [facility] Start: 1975 Depression Screening Depression Screening [facility] Start: 1975 Diabetes mellitus screening Diabetes Screening [facility] Start: 1975 Hepatitis C screening Hepatitis C Screening [facility] Start: 1969 Depression Screening Depression Screening [facility] Start: 1963 Pneumococcal vaccination [facility] Start: 1963 Pneumococcal Vaccine: 65+ Years (1 - PCV) Pneumococcal Vaccine: 65+ Years (1 - PCV) [facility] Start: 1963 Pneumococcal Vaccine: 65+ Years (1 of 2 - PCV) Pneumococcal Vaccine: 65+ Years (1 of 2 - PCV) [facility] Start: 1963 Pneumococcal Vaccine: Pediatrics (0 to 5 Years) and At-Risk Patients (6 to 64 Years) (1 - PCV) Pneumococcal Vaccine: Pediatrics (0 to 5 Years) and At-Risk Patients (6 to 64 Years) (1 - PCV) [facility] Start: 01-10-1958 COVID-19 VACCINE (#1) COVID-19 VACCINE (#1) [facility] Start: 1957 Hepatitis B Vaccines (1 of 3 - 3-dose series) Hepatitis B Vaccines (1 of 3 - 3-dose series) [facility] Start: 1957 Hepatitis C screening HEPATITIS C VIRUS SCREENING [facility] Start: 1957 Lipid panel Lipid Panel [facility] Start: 1957 Screening for malignant neoplasm of colon [facility] Start: 1957 Tetanus vaccination TETANUS [facility] Start: 1957 Thyroid stimulating hormone measurement [facility] 25-hydroxyvitamin D3 [Mass/volume] in Serum or Plasma Vitamin D 25 hydroxy Lab Routine Vitamin D deficiency 07/31/2021 8:32 AM EDT [facility] End: 07-30-2023 25-hydroxyvitamin D3 [Mass/volume] in Serum or Plasma Vitamin D 25 hydroxy Lab Routine Vitamin D deficiency 1 Occurrences starting 07/30/2022 until 07/30/2023 [facility] Comment on above: 1 Occurrences starting 07/30/2022 until 07/30/2023 Alanine aminotransfe rase [Enzymatic activity/volume] in Serum or Plasma [facility] Albumin [Mass/volume ] in Serum or Plasma [facility] Albumin [Moles/volum e] in Serum or Plasma [facility] Albumin [Moles/volum e] in Serum or Plasma [facility] Albumin [Moles/volum e] in Serum or Plasma [facility] Albumin [Moles/volum e] in Serum or Plasma [facility] Albumin [Moles/volum e] in Serum or Plasma [facility] Albumin [Moles/volum e] in Serum or Plasma [facility] Albumin [Moles/volum e] in Serum or Plasma [facility] Albumin [Moles/volum e] in Serum or Plasma [facility] Albumin [Moles/volum e] in Serum or Plasma [facility] Albumin/Globulin ratio [facility] Albumin/Globulin ratio [facility] Albumin/Globulin ratio [facility] Albumin/Globulin ratio [facility] Albumin/Globulin ratio [facility] Albumin/Globulin ratio [facility] Albumin/Globulin ratio [facility] Albumin/Globulin ratio [facility] Albumin/Globulin ratio [facility] Alkaline phosphatase [Enzymatic activity/volume] in Serum or Plasma [facility] Anion gap in Serum o r Plasma [facility] Bacteria identified in Unspecified specimen by Anaerobe culture [facility] Bilirubin, total measurement [facility] BUN/Creatinine ratio [facility] Calcium [Mass/volume ] in Serum or Plasma [facility] Carbon dioxide, tota l [Moles/volume] in Central venous blood [facility] CBC W Auto Different ial panel - Blood [facility] Chromosome analysis panel by FISH FISH, cytogenetics Lab Routine 01/29/2023 11:42 AM EDT [email or web address] Comprehensive metabo lic 1999 panel - Serum or Plasma Comprehensive metabolic panel Lab Routine Mixed hyperlipidemia 07/31/2021 8:32 AM EDT [employer] End: 07-30-2023 Comprehensive metabolic 2000 panel - Serum or Plasma Comprehensive metabolic panel Lab Routine Essential hypertension 1 Occurrences starting 07/30/2022 until 07/30/2023 [email or web address] Comment on above: 1 Occurrences starting 07/30/2022 until 07/30/2023 Creatinine [Mass/vol ume] in Serum or Plasma [facility] Cystourethroscopy [email or web address] Procedures Routine Benign prostatic hyperplasia with urinary retention Ordered: 11/28/2024 [facility] Comment on above: Ordered: 11/28/2024 Dressing Order: Eaton lt rope; Daily; 4x4 gauze, ABDs; Medfix tape Dressing Order: Mesalt rope; Daily; 4x4 gauze, ABDs; [employer]fix tape Wound Ostomy Routine Ordered: 03/29/2024 [employer] Phone: Comment on above: Ordered: 03/29/2024 Dressing Order: Eaton lt rope; Daily; 4x4 gauze, ABDs; Paper tape Dressing Order: Mesalt rope; Daily; 4x4 gauze, ABDs; Paper tape Wound Ostomy Routine Ordered: 03/22/2024 [employer] Phone: Comment on above: Ordered: 03/22/2024 Electrophoresis: [id number] [facility] Electrophoresis: [id number] [facility] [place] Electrophoresis: [id number] [facility] [place] Electrophoresis: [id number] [facility] [place] Electrophoresis: [id number] [facility] [place] Electrophoresis: [id number] [facility] [place] Electrophoresis: [id number] [facility] [place] Electrophoresis: [id number] [facility] [place] Electrophoresis: [id number] [facility] [place] Electrophoresis: jillian ma globulin [facility] [place] Electrophoresis: jillian ma globulin [facility] [place] Electrophoresis: jillian ma globulin [facility] [place] Electrophoresis: jillian ma globulin [facility] [place] Electrophoresis: jillian ma globulin [facility] [place] Electrophoresis: jillian ma globulin [facility] [place] Electrophoresis: jillian ma globulin [facility] [place] Electrophoresis: jillian ma globulin [facility] [place] Electrophoresis: jillian ma globulin [facility] [place] Erythrocyte mean corpuscular volume determination [facility] [place] Globulin measurement [facility] [place] Globulin measurement [facility] [place] Globulin measurement [facility] [place] Globulin measurement [facility] [place] Globulin measurement [facility] [place] Globulin measurement [facility] [place] Globulin measurement [facility] [place] Globulin measurement [facility] [place] Globulin measurement [facility] [place] Glucose [Mass/volume ] in Serum or Plasma [facility] [place] Hematocrit [Volume Fraction] of Blood [facility] [place] Hemoglobin [Mass/vol ume] in Blood [facility] [place] End: 07-30-2023 Hemogram and platelets WO differential panel - Blood CBC and differential Lab Routine Essential hypertension 1 Occurrences starting 07/30/2022 until 07/30/2023 [facility] Comment on above: 1 Occurrences starting 07/30/2022 until 07/30/2023 IgA [Mass/volume] in Serum or Plasma [facility] [place] IgA [Mass/volume] in Serum or Plasma [facility] [place] IgA [Mass/volume] in Serum or Plasma [facility] [place] IgA [Mass/volume] in Serum or Plasma [facility] [place] IgA [Mass/volume] in Serum or Plasma [facility] [place] IgA [Mass/volume] in Serum or Plasma [facility] [place] IgA [Mass/volume] in Serum or Plasma [facility] [place] IgA [Mass/volume] in Serum or Plasma [facility] [place] IgA [Mass/volume] in Serum or Plasma [facility] [place] IgG [Mass/volume] in Serum or Plasma [facility] [place] IgG [Mass/volume] in Serum or Plasma [facility] [place] IgG [Mass/volume] in Serum or Plasma [facility] [place] IgG [Mass/volume] in Serum or Plasma [facility] [place] IgG [Mass/volume] in Serum or Plasma [facility] [place] IgG [Mass/volume] in Serum or Plasma [facility] [place] IgG [Mass/volume] in Serum or Plasma [facility] [place] IgG [Mass/volume] in Serum or Plasma [facility] [place] IgG [Mass/volume] in Serum or Plasma [facility] [place] IgM [Mass/volume] in Serum or Plasma [facility] [place] IgM [Mass/volume] in Serum or Plasma [facility] [place] IgM [Mass/volume] in Serum or Plasma [facility] [place] IgM [Mass/volume] in Serum or Plasma [facility] [place] IgM [Mass/volume] in Serum or Plasma [facility] [place] IgM [Mass/volume] in Serum or Plasma [facility] [place] IgM [Mass/volume] in Serum or Plasma [facility] [place] IgM [Mass/volume] in Serum or Plasma [facility] [place] IgM [Mass/volume] in Serum or Plasma [facility] [place] IMMUNOFIXATION SERUM IMMUNOFIXAT ION SERUM Lab Routine Multiple myeloma, remission status unspecified 04/14/2023 12:36 PM EDT [facility] IMMUNOFIXATION SERUM IMMUNOFIXAT ION SERUM Lab Routine Multiple myeloma, remission status unspecified 09/08/2023 11:02 AM [facility] IMMUNOFIXATION SERUM IMMUNOFIXAT ION SERUM Lab Routine Multiple myeloma, remission status unspecified 03/08/2024 10:44 AM EDT [facility] IMMUNOFIXATION SERUM IMMUNOFIXAT ION SERUM Lab Routine Multiple myeloma, remission status unspecified 03/16/2025 11:11 AM EDT [facility] IMMUNOGLOBULIN FREE CHAINS IMMUN OGLOBULIN FREE CHAINS Lab Routine Multiple myeloma, remission status unspecified 04/14/2023 12:36 PM EDT [facility] IMMUNOGLOBULIN FREE CHAINS IMMUN OGLOBULIN FREE CHAINS Lab Routine Multiple myeloma, remission status unspecified 09/08/2023 11:02 AM EST [facility] IMMUNOGLOBULIN FREE CHAINS IMMUN OGLOBULIN FREE CHAINS Lab Routine Multiple myeloma, remission status unspecified 03/16/2025 11:11 AM EDT [facility] Insj non-ndwellg monserrat dder catheter INSERT,NON-INDW BLADDER CATH Procedures Routine Benign prostatic hyperplasia with urinary retention Ordered: 11/28/2024 [facility] Comment on above: Ordered: 11/28/2024 [place] and lambda lig ht chains [facility] [place] and lambda lig ht chains [facility] [place] and lambda lig ht chains [facility] [place] and lambda lig ht chains [facility] [place] and lambda lig ht chains [facility] [place] Woodside/lambda light c shantel ratio [facility] [place] Woodside/lambda light c shantel ratio [facility] [place] Wood[place]/lambda light c shantel ratio [facility] [place] Wood[place]/lambda light c shantel ratio [facility] [place] Woodside/lambda light c shantel ratio [facility] [place]/lambda light c shantel ratio [facility] [place]/lambda light c shantel ratio [facility] [place] Wood[place]/lambda light c shantel ratio [facility] [place] Wood[place]/lambda light c shantel ratio [facility] [place] Laboratory data interpretation [facility] [place] Laboratory data interpretation [facility] [place] Laboratory data interpretation [facility] [place] Laboratory data interpretation [facility] [place] Laboratory data interpretation [facility] [place] Laboratory data interpretation [facility] [place] Laboratory data interpretation [facility] [place] Lambda light chains. free [Mass/volume] in Serum or Plasma [facility] [place] Lambda light chains. free [Mass/volume] in Serum or Plasma [facility] [place] Lambda light chains. free [Mass/volume] in Serum or Plasma [facility] [place] Lambda light chains. free [Mass/volume] in Serum or Plasma [facility] [place] Lambda light chains. free [Mass/volume] in Serum or Plasma [facility] [place] Lambda light chains. free [Mass/volume] in Serum or Plasma [facility] [place] Lambda light chains. free [Mass/volume] in Serum or Plasma [facility] [place] Lambda light chains. free [Mass/volume] in Serum or Plasma [facility] [place] Lambda light chains. free [Mass/volume] in Serum or Plasma [facility] [place] Leukemia, lymphoma evaluation by flow cytometry Leukemia, lymphoma evaluation by flow cytometry Lab Routine 01/29/2023 8:59 AM EDT [employer] Phone: Leukocytes [#/volume ] in Blood [facility] [place] Lipid 1996 panel - S raudel or Plasma Lipid panel Lab Routine Mixed hyperlipidemia 07/31/2021 8:32 AM EDT [employer] Phone: End: 07-30-2023 Lipid panel with direct LDL - Serum or Plasma Lipid panel with reflex to direct LDL Lab Routine Mixed hyperlipidemia 1 Occurrences starting 07/30/2022 until 07/30/2023 [employer] Phone: Comment on above: 1 Occurrences starting 07/30/2022 until 07/30/2023 Magnesium [Mass/volu me] in Serum or Plasma [facility] [place] Magnesium measurement [facility] Mean corpuscular hemoglobin concentration determination [facility] [place] Mean corpuscular hemoglobin determination [facility] [place] Measurement of renal function [facility] [place] End: 01-29-2023 Microscopic exam [Interpretation] of Bone marrow by Cytology [employer] Phone: Comment on above: Once for 1 Occurrences starting 01/30/20 until 01/29/2023, 1 completed MONOCLONAL PROT IMMU NO, SERUM MONOCLONAL PROT IMMUNO, SERUM Lab Routine Multiple myeloma, remission status unspecified 04/14/2023 12:36 PM EDT [facility] MONOCLONAL PROT IMMU NO, SERUM MONOCLONAL PROT IMMUNO, SERUM Lab Routine Multiple myeloma, remission status unspecified 09/08/2023 11:02 AM EST [facility] MONOCLONAL PROT IMMU NO, SERUM MONOCLONAL PROT IMMUNO, SERUM Lab Routine Multiple myeloma, remission status unspecified 03/08/2024 10:44 AM EDT [facility] MONOCLONAL PROT IMMU NO, SERUM MONOCLONAL PROT IMMUNO, SERUM Lab Routine Multiple myeloma, remission status unspecified 03/16/2025 11:11 AM EDT [facility] Neutrophil count [facility] Neutrophil percent differential count [facility] [place] Patient Education [facility] Work Phone: Patient referral [facility] Work Phone: Platelets [#/volume] in Blood [facility] [place] Potassium measurement [facility] Protein electrophoresis PROTEIN ELECTROPHORESIS Lab Routine Multiple myeloma, remission status unspecified 04/14/2023 12:36 PM EDT [facility] Protein electrophoresis PROTEIN ELECTROPHORESIS Lab Routine Multiple myeloma, remission status unspecified 09/08/2023 11:02 AM EST [facility] Protein electrophoresis PROTEIN ELECTROPHORESIS Lab Routine Multiple myeloma, remission status unspecified 03/08/2024 10:44 AM EDT [facility] Protein electrophoresis PROTEIN ELECTROPHORESIS Lab Routine Multiple myeloma, remission status unspecified 03/16/2025 11:11 AM EDT [facility] Protein electrophore sis panel - Serum or Plasma [facility] [place] Protein electrophore sis panel - Serum or Plasma [facility] [place] Protein electrophore sis panel - Serum or Plasma [facility] [place] Protein electrophore sis panel - Serum or Plasma [facility] [place] Protein electrophore sis panel - Serum or Plasma [facility] [place] Protein electrophore sis panel - Serum or Plasma [facility] [place] Protein electrophore sis panel - Serum or Plasma [facility] [place] Protein electrophore sis panel - Serum or Plasma [facility] [place] Protein electrophore sis panel - Serum or Plasma [facility] [place] Red blood cell count [facility] [place] Red cell distributio n width determination [facility] [place] Serum chloride measurement [facility] Serum immunofixation [facility] [place] Serum immunofixation [facility] [place] Serum immunofixation [facility] [place] Serum immunofixation [facility] [place] Serum immunofixation [facility] [place] Serum immunofixation [facility] [place] Serum inorganic phos phate measurement [facility] [place] Sodium measurement [facility] Thyrotropin [Units/v olume] in Serum or Plasma TSH Lab Routine Hypothyroidism, unspecified type 07/31/2021 8:32 AM EDT [facility] End: 07-30-2023 Thyrotropin [Units/volume] in Serum or Plasma Thyroid stimulating hormone Lab Routine Hypothyroidism, unspecified type 1 Occurrences starting 07/30/2022 until 07/30/2023 [facility] Comment on above: 1 Occurrences starting 07/30/2022 until 07/30/2023 Thyroxine (T4) free [Mass/volume] in Serum or Plasma Thyroxine free Lab Routine Hypothyroidism, unspecified type 07/31/2021 8:32 AM EDT [facility] Total protein measurement [facility] Urea nitrogen [Mass/volume] in Serum or Plasma [facility] [place] Urine culture [facility] Urine kappa light ch ain measurement [facility] [place] Urine kappa light ch ain measurement [facility] [place] Urine kappa light ch ain measurement [facility] [place] Urine kappa light ch ain measurement [facility] [place] Urine kappa light ch ain measurement [facility] [place] Urine kappa light ch ain measurement [facility] [place] Urine kappa light ch ain measurement [facility] [place] Urine kappa light ch ain measurement [facility] [place] Urine kappa light ch ain measurement [facility] [place] US Kidney - bilatera l and Urinary bladder US KIDNEY/BLADDER Radiology Routine Benign prostatic hyperplasia with urinary retention 11/10/2024 3:02 PM EST [facility] Work Phone: End: 12-28-2025 US Kidney - bilateral and Urinary bladder US KIDNEY/BLADDER Radiology Routine Benign prostatic hyperplasia with urinary retention 1 Occurrences starting 11/28/2024 until 12/28/2025 [facility] Work Phone: Comment on above: 1 Occurrences starting 11/28/2024 until 12/28/2025 XR Bones Survey [place] [facility]izations Immunization Date Immunization Notes Care Provider [facility] 07-24-2024 Pneumococcal Vaccine PCV20 (Prevnar 20) Dr. Blade Milner DO Work Phone: [facility] [place] 07-22-2024 Covid (Spikevax) Dr. Blade nolan DO Work Phone: [facility] [place] 2023 influenza, injectabl e, quadrivalent, preservative free SERVICE MECHANIC Anika Gay [facility] [place] 2023 influenza virus vaccine, unspecified formulation Mickey Munoz DO Work Phone: [facility] 12-07-2022 influenza quadrivale nt (3 years and up) (AFLURIA) (PF) vaccine 0.5 mL Marcello Fisher DO Work Phone: [facility] 08-05-2022 Moderna (age 6 & old er) Bivalent Booster, COVID-19, 0.5 mL or 0.25 mL dosage Sherry Bolyard SERVICE MECHANIC [facility] 10-08-2021 Moderna SARS-CoV-2 COVID-19, mRNA, LNP-S, preservative free Sherry Bolyard SERVICE MECHANIC [facility] 03-06-2021 Covid (Moderna) Dr. Blade aleman DO Work Phone: [facility] [place] 03-06-2021 SARS-COV-2 (COVID-19 ) Vaccine, Unspecified Petros Bartholomew MD Work Phone: [facility] 02-06-2021 Moderna SARS-CoV-2 COVID-19, mRNA, LNP-S, preservative free Petros Bartholomew MD Work Phone: [facility] Payers Date Payer Category Payer Managed Care (unspecified) MEDICARE SUPPLEMENT [id number] 2023 Private Health Insurance MMO MED ICARE SUPPLEMENT [id number] 2023 Self-pay 2023 Unknown [id number] 2022 Medicare [id number] 2022 Medicare [id number] 2021 Unknown MEDICAL MUTUAL M EDICAL MUTUAL SUPERMED [id number] 2021-Present [address] [place] [address] [id number]. [id number] 2021 Unknown [id number] 2019 Unknown [id number]. 1.13.502.2. [id number] 1957 Unknown [id number] 2.16.840.1.163524.3.579.2. 1143 1957 Unknown [id number] 2.16.840.1.163269.3.579.2. 1143 1957 Unknown [id number] 2.16.840.1.978204.3.579.2. 1143 1957 Unknown [id number] 2.16.840.1.439623.3.579.2. 1143 1957 Unknown [id number] 2.16.840.1.605403.3.579.2. 1143 1957 Unknown [id number] 2.16.840.1.774129.3.579.2. 1143 1957 Unknown [id number] 2.16.840.1.438280.3.579.2. 1143 1957 Unknown [id number] 2.16.840.1.940467.3.579.2. 114 1957 Unknown [id number] 2.16.840.1.765265.3.579.2. 1143 1957 Unknown [id number] 2.16.840.1.924000.3.579.2. 114 1957 Unknown [id number] 2.16.840.1.935230.3.579.2. 1143 1957 Unknown [id number] 2..840.1.983538.3.579.2. 1142 1957 Unknown [id number] 2.16.840.1.922663.3.579.2. 114 1957 Unknown [id number] 2..840.1.126424.3.579.2. 1143 1957 Unknown [id number] 2.16.840.1.287462.3.579.2. 114 1957 Unknown [id number] 2.16.840.1.161739.3.579.2. 902 1957 Unknown [id number] 2.16.840.1.409735.3.579.2. 114 1957 Unknown [id number] 2.16.840.1.891638.3.579.2. 114 1957 Unknown [id number] 2.16.840.1.233633.3.579.2. 1143 1957 Unknown [id number] 2.16.840.1.906022.3.579.2. 1143 1957 Unknown [id number] 2.16.840.1.525275.3.579.2. 114 1957 Unknown [id number] 2.16.840.1.138806.3.579.2. 114 1957 Unknown [id number] 2..840.1.228222.3.579.2. 114 1957 Unknown [id number] 2.16.840.1.266269.3.579.2. 114 1957 Unknown [id number] 2..840.1.821277.3.579.2. 114 1957 Unknown [id number] 2..840.1.085700.3.579.2. 1142 1957 Unknown [id number] 2.840.1.775738.3.579.2. 1142 1957 Unknown [id number] 2..840.1.617625.3.579.2. 114 1957 Unknown [id number] 2..840.1.625738.3.579.2. 114 1957 Unknown [id number] 2..840.1.170108.3.579.2. 114 1957 Unknown [id number] .840.1.395022.3.579.2. 114 1957 Unknown [id number] .16.840.1.331538.3.579.2. 114 1957 Unknown [id number] 2.16.840.1.657605.3.579.2. 114 1957 Unknown [id number] 2.16.840.1.742621.3.579.2. 594 1957 Unknown [id number] 2.16.840.1.256076.3.579.2. 594 Unknown [id number] 2.16.840.1.413013.3.579.2. 462 Unknown [id number] 2.840.1.002658.3.579.2. 462 Unknown [id number] 2.16.840.1.684672.3.579.2. 462 Unknown [id number] 2.840.1.159475.3.579.2. 462 Unknown [id number] 2.840.1.698279.3.579.2. 462 Unknown [id number] 2.840.1.938450.3.579.2. 462 Unknown [id number] 2.840.1.781666.3.579.2. 462 Unknown [id number] 2.840.1.352780.3.579.2. 462 Unknown [id number] 2.840.1.462743.3.579.2. 462 Unknown [id number] 2.840.1.776940.3.579.2. 462 Unknown [id number] 2.840.1.054119.3.579.2. 462 Unknown [id number] 2.840.1.747288.3.579.2. 462 Unknown [id number] 2.840.1.997013.3.579.2. 462 Unknown [id number] 2.840.1.659518.3.579.2. 462 Unknown [id number] 2.840.1.034646.3.579.2. 462 Unknown [id number] 2.840.1.190853.3.579.2. 462 Unknown [id number] 2.840.1.791225.3.579.2. 462 Unknown [id number] 2.840.1.976560.3.579.2. 462 Unknown [id number] 2.840.1.851293.3.579.2. 462 Unknown [id number] 2.16.840.1.936063.3.579.2. 462 Unknown [id number] 2.16.840.1.291423.3.579.2. 462 Unknown [id number] 2.16.840.1.425643.3.579.2. 462 Unknown [id number] 2.16.840.1.098996.3.579.2. 462 Unknown [id number] 2.16.840.1.064638.3.579.2. 462 Unknown [id number] 2.16.840.1.031521.3.579.2. 462 Unknown [id number] 2.16.840.1.144903.3.579.2. 462 Unknown [id number] 2.16.840.1.327904.3.579.2. 462 Social History Date Type Detail Facility Start: 07-31-2021 End: 01-31-2025 Tobacco smoking status KSIS Never smoker [facility] Start: 07-31-2021 End: 11-10-2024 Tobacco use and exposure Never used [facility] Start: 07-31-2021 End: 01-29-2023 Alcohol intake Current drinker of alcohol (finding) [facility] Start: 07-31-2021 End: 03-16-2025 Alcohol intake [facility] Start: 1955 Sex Assigned At Not on file T [facility] Start: 01-19-2022 End: 01-29-2023 Exposure to SARS-CoV-2 (event) Not sure [facility] Start: 2023 End: 12-15-2023 Tobacco smoking status KSIS Tobacco smoking consumption unknown [facility] [place] Start: 01-09-2023 End: 02-03-2023 Exposure to SARS-CoV-2 (event) Unable to assess [facility] Start: 11-13-2022 End: 03-16-2025 Tobacco use panel [facility] How hard is it for y ou to pay for the very basics like food, housing, medical care, and heating Not hard at all [facility] Do you feel stress - tense, restless, nervous, or anxious, or unable to sleep at night because your mind is troubled all the time - these days [OSQ] Not at all [facility] (I/We) worried wheth er (my/our) food would run out before (I/we) got money to buy more. Never true [facility] Start: 1955 Sex Assigned At Male [facility] Start: 03-22-2024 End: 06-14-2024 Alcoholic beverage intake Ex-drinker (finding) [facility] Start: 11-10-2024 Alcoholic beverage intake Lifetime non-drinker (finding) [facility] Start: 11-13-2022 End: 12-07-2024 Sex Male (finding) [facility] Start: 08-30-2024 Gender identity Identifies as male gender (finding) [facility] Start: 08-30-2024 Sexual orientation Heterosexual (fin ding) [facility] Medical Equipment Procedure Code Equipment Code Equipment Origin al Text Equipment Identifier Dates Kit Surgiflo W 2 000 Units Ster Lyo - Sna - [id number] Start: 11-11-2022 Screw Set - Sna - [id number] Start: 11-11-2022 5.5x 100 Mino [id number] Start: 11-11-2022 Goals Date Patient Goal Desired Activity /State Functional Status Date Assessment Result Facility 08-13-2024 Functional status Up ad princess;Chair [facility] [place] Work Phone: 08-12-2024 Functional status Tolerates Activity Well [facility] [place] Work Phone: Mental Status Date Assessment Result Facility 08-13-2024 Cognitive function Voice/Name;Karel/Nenita farias [facility] Work Phone: 08-07-2024 Cognitive function Appropriate;Noy chavez [facility] Work Phone: Clinical Notes 07-31-2021 to 05-02-2025 Note Date & Type Note Facility 05-02-2025 Progress note [facility] 05-02-2025 Progress note Note Date/Time May 02, 2025 2:20pm [facility] [address] [place] [address] OFFICE VISIT Date of Service: 05/02/25 1356 MR#: [id number] Acct: [id number] Name: ARMAND BARRONN Rep #: [id number] : 1955 From: Jenn donohue MD Age/Sex: 69/M Location[place] [facility] Status: Signed HPI Subjective Date of Service 05/02/25 Chief Complaint Multiple myeloma on treatment History of Present Illness 68-year-old gentleman who is transferring his care for multiple myeloma from [place] to [place] closer to family 2023. He presented in October2022 with paraplegia due to spinal cord compression. November 10, 2022 MRI of the spine: Osseous metastatic disease with pathologic compression fractures and cord compression by epidural tumor at T2-T7. November 11, 2022 thoracic decompression and removal of epidural tumor at T2 andT7 and posterior thoracic fusion C7-T4 by pedicle screw fixation at [facility]. 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 December 29-2022 radiation therapy 20 Gy delivered in 5 fractions postoperatively T1-T8. January 29, 2023 bone marrow aspirate and biopsy showed kappa restricted plasma cellscompromised 25 % of marrow cellularity, had normal cytogenetics and negative FISH panel. October 2022 SPEP ELINA showed a kappa free light chain of 137 Mg per DL with a kappa lambda ratio of 114. Woodside chains peaked to 513 by February 2023. Hepatitis B serologies were negative I was not able to find an faxed records a pretreatment beta-2 microglobulin, skeletal survey or PET scan. February 2023 started systemic therapy with daratumumab, Revlimid and dexamethasone under the care of Dr. Woodall in [place]. Revlimid dose had to be reduced to 15mg 3 weeks on 1 week rest presumably due to cytopenias and by March 2023 he showed a partial remission of his disease was more than 50% drop in the free kappa light chains to 11 and ratio down to 2. In the course of his illness he was diagnosed with bilateral lower extremities DVTs and was placed on Eliquis.. Treatment summary and response: October 2022 thoracic decompression. December 2022 radiation therapy T1-T8. February 2023?February 2024 daratumumab Revlimid (initially 25 mg then reduced to 15 Mg 3 weeks on 1 week off) and dexamethasone. [place] March 2024 daratumumab and dexamethasone: Remains in [place]. Supportive treatment: Acyclovir and Bactrim prophylaxis. Bone supportive therapy with zoledronic acid with some interruptions due to dental issues. 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 History of radiation therapy Non-healing surgical wound Paraplegia Anemia Multiple myeloma DVT (deep venous thrombosis) Back pain Hypothyroidism Hypertension Hypercholesteremia Surgical History History of back surgery History of tooth extraction H/O laminectomy History of cholecystectomy Family History Mother Follicular lymphoma Father Hypertension Heart disease Brother Hypertension Other Cancer Social History housing: assisted living facility Smoking Status: Never smoker alcohol intake: former substance use type: does not use ROS Constitutional Constitutional: Reports systems reviewed and no addt'l complaints, except as documented; Denies fever(s) or weight loss Eyes Eyes: Reports systems reviewed and no addt'l complaints, except as documented ENT HEENT: Reports systems reviewed and no addt'l complaints, except as documented; Denies mouth lesions Cardiovascular Cardiovascular: Reports edema; Denies chest pain Respiratory/Chest Respiratory/Chest: Reports systems reviewed and no addt'l complaints, except as documented; Denies cough or dyspnea Gastrointestinal Gastrointestinal: Reports systems reviewed and no addt'l complaints, except as documented, bloating, constipation and other Details: Fecal incontinence is onlyoccasional if he were to get diarrhea ; Denies abdominal pain or change in bowel habits Genitourinary Genitourinary: Reports systems reviewed and no addt'l complaints, except as documented, urinary incontinence and other Details: Vanegas's catheter has been discontinued but can self cath on a as needed basis. Is trying to manage with frequent trips to the bathroom Musculoskeletal Musculoskeletal: Reports systems reviewed and no addt'l complaints, except as documented; Denies back pain Integumentary Integumentary: Reports systems reviewed and no addt'l complaints, except as documented; Denies new lesions Neurologic Neurologic: Reports systems reviewed and no addt'l complaints, except as documented, numbness, weakness and other Details: Paralysis and numbness waist down, has had some improvement now using a walker Psychiatric Psychiatric: Reports systems reviewed and no addt'l complaints, except as documented Endocrine Endocrinology: Reports systems reviewed and no addt'l complaints, except as documented Hematologic/Lymphatic Hematologic/Lymphatic: Reports systems reviewed and no addt'l complaints, exceptas documented; Denies easy bleeding or easy bruising Allergic/Immunologic Allergic/Immunologic: Reports systems reviewed and no addt'l complaints, except as documented Intake Vital Signs 04/05/25 13:15 05/02/25 13:57 05/02/25 14:00 Height 5 ft 5 in 5 ft 5 in 5 ft 5 in Weight: 84.141 kg 83.007 kg BMI 30.9 30.4 BP 114/68 117/67 Blood Pressure Location Lt brachial Lt brachial Position Sitting Sitting Respiration 16 18 Pulse 58 L 47 L Pulse Source Monitor Monitor Temp 98.0 F 99.0 F Temperature Source Temporal Artery Temporal Artery Pulse Oximetry (%) 93 97 Oxygen Delivery Method room air room air Intake Is patient in pain?: Yes (abdominal discomfort ) Allergies No Known Allergies Allergy (Verified 05/02/25 13:59) Medications ?Medication ?Instructions ?Recorded ?Confirmed ?Type acyclovir 400 mg tablet 400 mg PO Q12H virus 3 05/02/25 History amlodipine 10 mg tablet 10 mg PO DAILY bp 07/08/23 0 05/02/25 History ascorbic acid (vitamin C) 1,000 mg 1 g PO BID suppleme nt 07/08/23 05/02/25 History tablet cholecalciferol (vitamin D3) 125 125 mcg PO DAILY supp lement 07/08/23 05/02/25 History mcg (5,000 unit) capsule gabapentin 100 mg capsule 100 mg PO TID back 07/08/23 05/02/25 History magnesium oxide 250 mg PO .noon bowel health 07/08/23 05/02/25 History melatonin 3 mg capsule 6 mg PO HS sleep 07/08/23 History metoprolol tartrate 50 mg tablet 50 mg PO BID BP 07/0805/02/25 History omeprazole 20 mg tablet,delayed 20 mg PO DAILY gerd 05/02/25 History release Disability Placard #1 ea 07/12/23 05/02/25 Rx apixaban 5 mg tablet (Eliquis) 5 mg PO BID vte prophyl axis 07/17/23 05/02/25 History baclofen 5 mg tablet 5 mg PO BID back pain 05/02/25 History calcium carbonate 600 mg PO BID supplement 05/02/25 History lenalidomide 15 mg capsule 15 mg .Route .COMPLEX #21 C APSULES 04/04/24 05/02/25 Rx (Revlimid) benzonatate 200 mg capsule 200 mg PO BID-TID PRN 09/1305/02/25 History acetaminophen 500 mg tablet 1,000 mg PO QMONTH 5 05/02/25 History amoxicillin 500 mg capsule 500 mg PO BID 02/01/2503/21 History dexamethasone 4 mg tablet 20 mg PO QMONTH 02/01/2503/21 History diphenhydramine HCl 25 mg tablet 25 mg PO QMONTH 02/0105/02/25 History (Allergy (diphenhydramine)) doxycycline hyclate 100 mg capsule 100 mg PO BID 02/0105/02/25 History levothyroxine 112 mcg tablet 112 mcg PO DAILY 02/01/25 05/02/25 History magnesium hydroxide 2,400 mg/10 mL 30 ml PO QDAY PRN 0 02/01/25 05/02/25 History oral suspension (Milk Of Magnesia Concentrated) polyethylene glycol 3350 17 gram 17 g PO QDAY 02/01/25 05/02/25 History oral powder packet simethicone 180 mg capsule 180 mg PO TID PRN 02/01/25 05/02/25 History Have you fallen in the past year?: No Central Venous Access Central Venous Access: Yes Port/PICC: Port Laboratory Tests 07/12/23 09/01/23 09/29/23 11:50 10:20 13:10 ELINA M-Raúl 0.2 H 0.1 H 0.1 H Free Woodside LC, Quant 7.0 18.4 15.5 Free Lambda LC, Quant 4.1 L 11.5 11.1 Free [place]side/Lambda Ratio 1.71 H 1.60 1.40 10/27/23 11/24/23 01/19/24 11:10 13:00 12:55 ELINA M-Raúl 0.1 H Not Observed Free [place]side LC, Quant 8.0 13.9 12.0 Free Lambda LC, Quant 4.0 L 10.4 Free [place]/Lambda Ratio 2.00 H 1.34 1.69 H 02/16/24 04/12/24 06/07/24 12:45 12:20 14:15 ELINA M-Raúl Free [place] LC, Quant 10.8 11.9 6.0 Free Lambda LC, Quant 7.1 8.5 3.2 L Free [place]/Lambda Ratio 1.52 1.40 1.88 H 08/17/24 09/13/24 10/12/24 08:50 12:55 13:50 ELINA M-Raúl Free [place] LC, Quant 4.9 7.0 6.1 Free Lambda LC, Quant 3.1 L 3.7 L 3.3 L Free [place]/Lambda Ratio 1.58 1.89 H 1.85 H 11/09/24 12/07/24 01/04/25 13:28 14:21 13:18 ELINA M-Raúl Free [place] LC, Quant 6.0 5.7 5.4 Free Lambda LC, Quant 2.7 L 2.7 L 2.7 L Free [place]/Lambda Ratio 2.22 H 2.11 H 2.00 H 02/01/25 03/08/25 04/05/25 13:15 13:29 12:45 ELINA M-Raúl Free [place] LC, Quant 6.4 7.6 9.2 Free Lambda LC, Quant 2.2 L 2.8 L 2.3 L Free [place]/Lambda Ratio 2.91 H 2.71 H 4.00 H Exam Physical Exam Narrative ECOG 2, Const alert, oriented x3 and no apparent distress HEENT Face and Sinus: normal facial exam Teeth and Gingiva: poor dentition Eyes General Eye: normal appearance of both eyes Neck no JVD Resp clear to auscultation bilaterally Cardio regular rate and regular rhythm Jugular Venous Distention: Negative for JVD GI soft to palpation, non-tender and non-distended Back/Spine no thoracic nor lumbar tenderness Extremity General Extremity: edema bilateral lower extremity Details: moderate; Negative for clubbing or cyanosis Skin Rashes: no rashes Neuro oriented x3 and CN's II-XII intact bilaterally Neuro Narrative: Patient is paraplegic, Coordination / Balance: [id number] test normal Speech: speech normal Gait (Neuro): assistive device used walker Psych mental status grossly normal Coding Level of Care Code Off vis,est,level 4 Exam Problem Focused Diagnoses Multiple myeloma not having achieved remission C90.00 Multiple myeloma remission status: not in remission Anemia, unspecified type D64.9 Anemia type: unspecified type Chronic deep vein thrombosis (DVT) of other vein of both lower extremities I82.593 DVT location: lower extremity Affected thrombotic vein of extremity: other lower extremity vein Chronicity: chronic Laterality: bilateral Assessment and Plan Assessment and Plan (1) Multiple myeloma: Status: Chronic Qualifiers: Multiple myeloma remission status: not in remission Qualified Code(s): C90.00 - Multiple myeloma not having achieved remission (2) Anemia: Status: Chronic Qualifiers: Anemia type: unspecified type Qualified Code(s): D64.9 - Anemia, unspecified (3) DVT (deep venous thrombosis): Status: Chronic Qualifiers: DVT location: lower extremity Affected thrombotic vein of extremity: other lower extremity vein Chronicity: chronic Laterality: bilateral Qualified Code(s): I82.593 - Chronic embolism and thrombosis of other specified deep vein of lower extremity, bilateral Plan 69-year-old gentleman who presented October 2022 with paraplegia urine and stool incontinence due to 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 Work-up consistent with multiple myeloma kappa light chain disease, standard risk myeloma (normal cytogenetics and FISH panel). Patient is status post decompression, radiation therapy and started systemic therapy with daratumumab Revlimid and dexamethasone in February 2023 and achieved partial remission (more than 50% drop in kappa light chain) initial care was in [place] ([facility] for surgery and radiation then Dr. Woodall). Transferring care to [facility] June 2023 to be close tohis sister starting maintenance DRd July 2023. His disease went into a very good partial remission with M protein no longer detected by October 2023. He went on Revlimid holiday started March 2024 and his M protein remained stable Chronic comorbid conditions: Residual paraplegia with urine and stool incontinence (has an indwelling Vanegas's catheter), hypertension, dyslipidemia, hypothyroidism. He has anemia of cancer and anticancer therapy, and developed bilateral lower extremities DVTs complicating malignancy on long-term anticoagulation with Eliquis. Plan: Managed jointly with [facility] 1-continue systemic therapy with Dd: daratumumab maintenance (4 weeks intervals ), and dexamethasone 20 mg down to day 1 of each treatment cycle (28 days cycles). 2. Supportive treatment: Acyclovir for shingles prophylaxis and advised to receive shingles vaccine, Bactrim for PCP prophylaxis (Wednesdays and Fridays). Has not seen the dentist for over a year (early 2023 was the last visit) will need to update dental clearance and resume zoledronic acid. 3. Continue long-term anticoagulant treatment for bilateral lower extremities DVTs complicated malignancy induced hyper coagulability and limited mobility because of paraplegia. Hold anticoagulation for 48 hours prior to any invasive procedure including dental extractions. He has been on Eliquis 5 Mg maintenancetwice daily for well over a year and therefore may consider dose reduction to long-term maintenance at 2.5 Mg twice daily to the discretion of his PCP. Impression and plan were discussed with patient. Jenn Perez MD [employer], [facility] Divisions of Medical Oncology & Hematology Department of Internal Medicine [place] [phone] This note was generated using a voice recognition system software. Although itwas reviewed by the author prior to finalization, it may still contain incorrectwords, spelling, and punctuation that were not noted when reviewing prior to saving. If a clinically significant typo or inaccurately typed phrase is noted, please notify the author. Clinical Quality Measures Falls Risk Screening/Assistive Devices Have you fallen in the past year?: No 05/02/25 1420 <Electronically signed by Jenn varela MD> Date _ Jenn Perez MD [facility] Signature: Date (if applicable) CC: Dr. Blade Milner, DO ~ [facility] Work Phone: [phone] 100-805407-10-2025 Progress [facility] [address] [place] [address] OFFICE VISIT Date of Service: 04/05/25 1309 MR#: [id number] Acct: [id number] Name: ARMAND BARRON LEAH Rep #: [id number] : 1955 From: Jenn donohue MD Age/Sex: 69/M Location[place] [facility] [place] Status: Signed HPI Subjective Date of Service 04/05/25 Chief Complaint Multiple myeloma on treatment History of Present Illness 68-year-old gentleman who is transferring his care for multiple myeloma from [place] to [place] closer to family 2023. He presented in October2022 with paraplegia due to spinal cord compression. November 10, 2022 MRI of the spine: Osseous metastatic disease with pathologic compression fractures and cord compression by epidural tumor at T2-T7. November 11, 2022 thoracic decompression and removal of epidural tumor at T2 andT7 and posterior thoracic fusion C7-T4 by pedicle screw fixation at [facility]. 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 December 29-2022 radiation therapy 20 Gy delivered in 5 fractions postoperatively T1-T8. January 29, 2023 bone marrow aspirate and biopsy showed kappa restricted plasma cellscompromised 25 % ofmarrow cellularity, had normal cytogenetics and negative FISH panel. October 2022 SPEP ELINA showed a kappa free light chain of 137 Mg per DL with a kappa lambda ratio of 114. Woodside chains peaked to 513 by February 2023. Hepatitis B serologies were negative I was not able to find an faxed records a pretreatment beta-2 microglobulin, skeletal survey or PETscan. February 2023 started systemic therapy with daratumumab, Revlimid and dexamethasone under the care of Dr. Woodall in [place]. Revlimid dose had to be reduced to 15mg 3 weeks on 1 week rest presumably dueto cytopenias and by March 2023 he showed a partial remission of his disease was more than 50% drop in the free kappa light chains to 11 and ratio down to 2. In the course of his illness he was diagnosed with bilateral lower extremities DVTs and was placed on Eliquis.. Treatment summary and response: October 2022 thoracic decompression. December 2022 radiation therapy T1-T8. February 2023?February 2024 daratumumab Revlimid (initially 25 mg then reduced to 15 Mg 3 weeks on 1 week off) and dexamethasone. [place] March 2024 daratumumab and dexamethasone: Remains in [place]. Supportive treatment: Acyclovir and Bactrim prophylaxis. Bone supportive therapy with zoledronic acid with some interruptions due to dental issues. 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 History of radiation therapy Non-healing surgical wound Paraplegia Anemia Multiple myeloma DVT (deep venous thrombosis) Back pain Hypothyroidism Hypertension Hypercholesteremia Surgical History History of back surgery History of tooth extraction H/O laminectomy History of cholecystectomy Family History Mother Follicular lymphoma Father Hypertension Heart disease Brother Hypertension Other Cancer Social History housing: assisted living facility Smoking Status: Never smoker alcohol intake: former substance use type: does not use ROS ROS Narrative ambulating with a walker now Constitutional Constitutional: Reports systems reviewed and no addt'l complaints, except as documented; Denies fever(s) or weight loss Eyes Eyes: Reports systems reviewed and no addt'l complaints, except as documented ENT HEENT: Reports systems reviewed and no addt'l complaints, except as documented; Denies mouth lesions Cardiovascular Cardiovascular: Reports edema; Denies chest pain Respiratory/Chest Respiratory/Chest: Reports systems reviewed and no addt'l complaints, except as documented; Denies cough or dyspnea Gastrointestinal Gastrointestinal: Reports systems reviewed and no addt'l complaints, except as documented, bloating, constipation and other Details: Fecal incontinence is onlyoccasional if he were to get diarrhea ; Denies abdominal pain or change in bowel habits Genitourinary Genitourinary: Reports systems reviewed and no addt'l complaints, except as documented, urinary incontinence and other Details: Vanegas's catheter has been discontinued but can self cath on a as neededbasis. Is trying to manage with frequent trips to the bathroom Musculoskeletal Musculoskeletal: Reports systems reviewed and no addt'l complaints, except as documented; Denies back pain Integumentary Integumentary: Reports systems reviewed and no addt'l complaints, except as documented; Denies new lesions Neurologic Neurologic: Reports systems reviewed and no addt'l complaints, except as documented, numbness, weakness and other Details: Paralysis and numbness waist down, has had some improvement now using a walker Psychiatric Psychiatric: Reports systems reviewed and no addt'l complaints, except as documented Endocrine Endocrinology: Reports systems reviewed and no addt'l complaints, except as documented Hematologic/Lymphatic Hematologic/Lymphatic: Reports systems reviewed and no addt'l complaints, exceptas documented; Denies easy bleeding or easy bruising Allergic/Immunologic Allergic/Immunologic: Reports systems reviewed and no addt'l complaints, except as documented Intake Vital Signs 03/08/25 14:08 04/05/25 13:10 04/05/25 13:15 Height 5 ft 5 in 5 ft 5 in 5 ft 5 in Weight: 79.974 kg 84.141 kg BMI 29.3 30.9 BP 115/65 114/68 Blood Pressure Location Lt brachial Lt brachial Position Sitting Sitting Respiration 18 16 Pulse 46 L 58 L Pulse Source Monitor Monitor Temp 98.8 F 98.0 F Temperature Source Temporal Artery Temporal Artery Pulse Oximetry (%) 98 93 Oxygen Delivery Method room air room air Intake Is patient in pain?: No Allergies No Known Allergies Allergy (Verified 04/05/25 13:13) Medications ?Medication ?Instructions ?Recorded ?Confirmed ?Type acyclovir 400 mg tablet 400 mg PO Q12H virus 3 04/05/25 History amlodipine 10 mg tablet 10 mg PO DAILY bp 07/08/23 0 04/05/25 History ascorbic acid (vitamin C) 1,000 mg 1 g PO BID suppleme nt 07/08/23 04/05/25 History tablet cholecalciferol (vitamin D3) 125 125 mcg PO DAILY supp lement 07/08/23 04/05/25 History mcg (5,000 unit) capsule gabapentin 100 mg capsule 100 mg PO TID back 07/08/23 04/05/25 History magnesium oxide 250 mg PO .noon bowel health 07/08/23 04/05/25 History melatonin 3 mg capsule 6 mg PO HS sleep 07/08/23 History metoprolol tartrate 50 mg tablet 50 mg PO BID BP 07/0804/05/25 History omeprazole 20 mg tablet,delayed 20 mg PO DAILY gerd 04/05/25 History release Disability Placard #1 ea 07/12/23 04/05/25 Rx apixaban 5 mg tablet (Eliquis) 5 mg PO BID vte prophyl axis 07/17/23 04/05/25 History baclofen 5 mg tablet 5 mg PO BID back pain 04/05/25 History calcium carbonate 600 mg PO BID supplement 04/05/25 History lenalidomide 15 mg capsule 15 mg .Route .COMPLEX #21 C APSULES 04/04/24 04/05/25 Rx (Revlimid) benzonatate 200 mg capsule 200 mg PO BID-TID PRN 09/1304/05/25 History acetaminophen 500 mg tablet 1,000 mg PO QMONTH 5 04/05/25 History amoxicillin 500 mg capsule 500 mg PO BID 02/01/2503/27 History dexamethasone 4 mg tablet 20 mg PO QMONTH 02/01/2507/21 History diphenhydramine HCl 25 mg tablet 25 mg PO QMONTH 02/0104/05/25 History (Allergy (diphenhydramine)) doxycycline hyclate 100 mg capsule 100 mg PO BID 02/0104/05/25 History levothyroxine 112 mcg tablet 112 mcg PO DAILY 02/01/25 04/05/25 History magnesium hydroxide 2,400 mg/10 mL 30 ml PO QDAY PRN 0 02/01/25 04/05/25 History oral suspension (Milk Of Magnesia Concentrated) polyethylene glycol 3350 17 gram 17 g PO QDAY 02/01/25 04/05/25 History oral powder packet simethicone 180 mg capsule 180 mg PO TID PRN 02/01/25 04/05/25 History Have you fallen in the past year?: No Central Venous Access Central Venous Access: Yes Port/PICC: Port Laboratory Tests 07/12/23 09/01/23 09/29/23 11:50 10:20 13:10 ELINA M-Raúl 0.2 H 0.1 H 0.1 H Free Woodside LC, Quant 7.0 18.4 15.5 Free Lambda LC, Quant 4.1 L 11.5 11.1 Free [place]/Lambda Ratio 1.71 H 1.60 1.40 10/27/23 11/24/23 01/19/24 11:10 13:00 12:55 ELINA M-Raúl 0.1 H Not Observed Free Woodside LC, Quant 8.0 13.9 12.0 Free Lambda LC, Quant 4.0 L 10.4 Free [place]/Lambda Ratio 2.00 H 1.34 1.69 H 02/16/24 04/12/24 06/07/24 12:45 12:20 14:15 ELINA M-Raúl Free Woodside LC, Quant 10.8 11.9 6.0 Free Lambda LC, Quant 7.1 8.5 3.2 L Free [place]/Lambda Ratio 1.52 1.40 1.88 H 08/17/24 09/13/24 10/12/24 08:50 12:55 13:50 ELINA M-Raúl Free Woodside LC, Quant 4.9 7.0 6.1 Free Lambda LC, Quant 3.1 L 3.7 L 3.3 L Free [place]/Lambda Ratio 1.58 1.89 H 1.85 H 11/09/24 12/07/24 01/04/25 13:28 14:21 13:18 ELINA M-Raúl Free Woodside LC, Quant 6.0 5.7 5.4 Free Lambda LC, Quant 2.7 L 2.7 L 2.7 L Free [place]/Lambda Ratio 2.22 H 2.11 H 2.00 H 02/01/25 03/08/25 13:15 13:29 ELINA M-Raúl Free Woodside LC, Quant 6.4 7.6 Free Lambda LC, Quant 2.2 L 2.8 L Free [place]side/Lambda Ratio 2.91 H 2.71 H Exam Physical Exam Narrative ECOG 2, Const alert, oriented x3 and no apparent distress HEENT Face and Sinus: normal facial exam Teeth and Gingiva: poor dentition Eyes General Eye: normal appearance of both eyes Neck no JVD Resp clear to auscultation bilaterally Cardio regular rate and regular rhythm Jugular Venous Distention: Negative for JVD GI soft to palpation, non-tender and non-distended Back/Spine no thoracic nor lumbar tenderness Extremity General Extremity: edema bilateral lower extremity Details: moderate; Negative for clubbing or cyanosis Skin Rashes: no rashes Neuro oriented x3 and CN's II-XII intact bilaterally Neuro Narrative: Patient is paraplegic, Coordination / Balance: [id number] test normal Speech: speech normal Gait (Neuro): assistive device used walker Psych mental status grossly normal Coding Level of Care Code Off vis,est,level 4 Exam Problem Focused Diagnoses Multiple myeloma not having achieved remission C90.00 Multiple myeloma remission status: not in remission Anemia, unspecified type D64.9 Anemia type: unspecified type Chronic deep vein thrombosis (DVT) of other vein of both lower extremities I82.593 DVT location: lower extremity Affected thrombotic vein of extremity: other lower extremity vein Chronicity: chronic Laterality: bilateral Assessment and Plan Assessment and Plan (1) Multiple myeloma: Status: Chronic Qualifiers: Multiple myeloma remission status: not in remission Qualified Code(s): C90.00 - Multiple myeloma not having achieved remission (2) Anemia: Status: Chronic Qualifiers: Anemia type: unspecified type Qualified Code(s): D64.9 - Anemia, unspecified (3) DVT (deep venous thrombosis): Status: Chronic Qualifiers: DVT location: lower extremity Affected thrombotic vein of extremity: other lower extremity vein Chronicity: chronic Laterality: bilateral Qualified Code(s): I82.593 - Chronic embolism and thrombosis of other specified deep vein of lower extremity, bilateral Plan 69-year-old gentleman who presented October 2022 with paraplegia urine and stool incontinence due to 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 Work-up consistent with multiple myeloma kappa light chain disease, standard risk myeloma (normal cytogenetics and FISH panel). Patient is status post decompression, radiation therapy and started systemic therapy with daratumumab Revlimid and dexamethasone in February 2023 and achieved partial remission (more than 50% drop in kappa light chain) initial care was in [place] ([facility] for surgery and radiation then Dr. Woodall). Transferring care to [facility] June 2023 to be close tohis sister startingmaintenance A[place] July 2023. His disease went into a very good partial remission with M protein no longer detected by October 2023. He went on Revlimid holiday started March 2024 and his M protein remained stable Chronic comorbid conditions: Residual paraplegia with urine and stool incontinence (has an indwelling Vanegas's catheter), hypertension, dyslipidemia, hypothyroidism. He has anemia of cancer and anticancer therapy, and developed bilateral lower extremities DVTs complicating malignancy on long-term anticoagulation with Eliquis. Plan: Managed jointly with [facility] 1-continue systemic therapy with Dd: daratumumab maintenance (4 weeks intervals ), and dexamethasone 20 mg down to day 1 of each treatment cycle (28 days cycles). 2. Supportive treatment: Acyclovir for shingles prophylaxis and advised to receive shingles vaccine, Bactrim for PCP prophylaxis (Wednesdays and Fridays). Has not seen the dentist for over a year (early 2023 was the last visit) will need to update dental clearance and resume zoledronic acid. 3. Continue long-term anticoagulant treatment for bilateral lower extremities DVTs complicated malignancy induced hyper coagulability. Hold anticoagulation for 48 hours prior to any invasive procedure including dental extractions. Impression and plan were discussed with patient. Jenn Perez MD Airplane Patroller, [facility] Divisions of Medical Oncology & Hematology Department of Internal Medicine [facility] [place] [id number] This note was generated using a voice recognition system software. Although itwas reviewed by the author prior to finalization, it may still contain incorrectwords, spelling, and punctuation that were not noted when reviewing prior to saving. If a clinically significant typo or inaccurately typed phrase is noted, please notify the author. Clinical Quality Measures Falls Risk Screening/Assistive Devices Have you fallen in the past year?: No 04/05/25 1346 avery DEE> Date _ Jenn [facility] Signature: Date (if applicable) CC: Dr. Blade Milner, DO ~ [facility]07-10-2025 Progress note Author Jenn Perez [facility] Note Date/Time April 05, 2025 1:46 pm [facility] [address] [place] [address]. [place] [address] OFFICE VISIT Date of Service: 04/05/25 1309 MR#: [id number] Acct: [id number] Name: ARMAND BARRON LEAH Rep #: [id number] : 1955 From: Jenn donohue MD Age/Sex: 69/M Location[place] [facility] [place] Status: Signed HPI Subjective Date of Service 04/05/25 Chief Complaint Multiple myeloma on treatment History of Present Illness 68-year-old gentleman who is transferring his care for multiple myeloma from [place] to [facility] closer to family 2023. He presented in October2022 with paraplegia due to spinal cord compression. November 10, 2022 MRI of the spine: Osseous metastatic disease with pathologic compression fractures and cord compression by epidural tumor at T2-T7. November 11, 2022 thoracic decompression and removal of epidural tumor at T2 andT7 and posterior thoracic fusion C7-T4 by pedicle screw fixation at [facility]. 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 December 29-2022 radiation therapy 20 Gy delivered in 5 fractions postoperatively T1-T8. January 29, 2023 bone marrow aspirate and biopsy showed kappa restricted plasma cellscompromised 25 % of marrow cellularity, had normal cytogenetics and negative FISH panel. October 2022 SPEP ELINA showed a kappa free light chain of 137 Mg per DL with a kappa lambda ratio of 114. Woodside chains peaked to 513 by February 2023. Hepatitis B serologies were negative I was not able to find an faxed records a pretreatment beta-2 microglobulin, skeletal survey or PET scan. February 2023 started systemic therapy with daratumumab, Revlimid and dexamethasone under the care of Dr. Woodall in [place]. Revlimid dose had to be reduced to 15mg 3 weeks on 1 week rest presumably due to cytopenias and by March 2023 he showed a partial remission of his disease was more than 50% drop in the free kappa light chains to 11 and ratio down to 2. In the course of his illness he was diagnosed with bilateral lower extremities DVTs and was placed on Eliquis.. Treatment summary and response: October 2022 thoracic decompression. December 2022 radiation therapy T1-T8. February 2023?February 2024 daratumumab Revlimid (initially 25 mg then reduced to 15 Mg 3 weeks on 1 week off) and dexamethasone. [place] March 2024 daratumumab and dexamethasone: Remains in [place]. Supportive treatment: Acyclovir and Bactrim prophylaxis. Bone supportive therapy with zoledronic acid with some interruptions due to dental issues. 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 History of radiation therapy Non-healing surgical wound Paraplegia Anemia Multiple myeloma DVT (deep venous thrombosis) Back pain Hypothyroidism Hypertension Hypercholesteremia Surgical History History of back surgery History of tooth extraction H/O laminectomy History of cholecystectomy Family History Mother Follicular lymphoma Father Hypertension Heart disease Brother Hypertension Other Cancer Social History housing: assisted living facility Smoking Status: Never smoker alcohol intake: former substance use type: does not use ROS ROS Narrative ambulating with a walker now Constitutional Constitutional: Reports systems reviewed and no addt'l complaints, except as documented; Denies fever(s) or weight loss Eyes Eyes: Reports systems reviewed and no addt'l complaints, except as documented ENT HEENT: Reports systems reviewed and no addt'l complaints, except as documented; Denies mouth lesions Cardiovascular Cardiovascular: Reports edema; Denies chest pain Respiratory/Chest Respiratory/Chest: Reports systems reviewed and no addt'l complaints, except as documented; Denies cough or dyspnea Gastrointestinal Gastrointestinal: Reports systems reviewed and no addt'l complaints, except as documented, bloating, constipation and other Details: Fecal incontinence is onlyoccasional if he were to get diarrhea ; Denies abdominal pain or change in bowel habits Genitourinary Genitourinary: Reports systems reviewed and no addt'l complaints, except as documented, urinary incontinence and other Details: Vanegas's catheter has been discontinued but can self cath on a as needed basis. Is trying to manage with frequent trips to the bathroom Musculoskeletal Musculoskeletal: Reports systems reviewed and no addt'l complaints, except as documented; Denies back pain Integumentary Integumentary: Reports systems reviewed and no addt'l complaints, except as documented; Denies new lesions Neurologic Neurologic: Reports systems reviewed and no addt'l complaints, except as documented, numbness, weakness and other Details: Paralysis and numbness waist down, has had some improvement now using a walker Psychiatric Psychiatric: Reports systems reviewed and no addt'l complaints, except as documented Endocrine Endocrinology: Reports systems reviewed and no addt'l complaints, except as documented Hematologic/Lymphatic Hematologic/Lymphatic: Reports systems reviewed and no addt'l complaints, exceptas documented; Denies easy bleeding or easy bruising Allergic/Immunologic Allergic/Immunologic: Reports systems reviewed and no addt'l complaints, except as documented Intake Vital Signs 03/08/25 14:08 04/05/25 13:10 04/05/25 13:15 Height 5 ft 5 in 5 ft 5 in 5 ft 5 in Weight: 79.974 kg 84.141 kg BMI 29.3 30.9 BP 115/65 114/68 Blood Pressure Location Lt brachial Lt brachial Position Sitting Sitting Respiration 18 16 Pulse 46 L 58 L Pulse Source Monitor Monitor Temp 98.8 F 98.0 F Temperature Source Temporal Artery Temporal Artery Pulse Oximetry (%) 98 93 Oxygen Delivery Method room air room air Intake Is patient in pain?: No Allergies No Known Allergies Allergy (Verified 04/05/25 13:13) Medications ?Medication ?Instructions ?Recorded ?Confirmed ?Type acyclovir 400 mg tablet 400 mg PO Q12H virus 3 04/05/25 History amlodipine 10 mg tablet 10 mg PO DAILY bp 07/08/23 0 04/05/25 History ascorbic acid (vitamin C) 1,000 mg 1 g PO BID suppleme nt 07/08/23 04/05/25 History tablet cholecalciferol (vitamin D3) 125 125 mcg PO DAILY supp lement 07/08/23 04/05/25 History mcg (5,000 unit) capsule gabapentin 100 mg capsule 100 mg PO TID back 07/08/23 04/05/25 History magnesium oxide 250 mg PO .noon bowel health 07/08/23 04/05/25 History melatonin 3 mg capsule 6 mg PO HS sleep 07/08/23 History metoprolol tartrate 50 mg tablet 50 mg PO BID BP 07/0804/05/25 History omeprazole 20 mg tablet,delayed 20 mg PO DAILY gerd 04/05/25 History release Disability Placard #1 ea 07/12/23 04/05/25 Rx apixaban 5 mg tablet (Eliquis) 5 mg PO BID vte prophyl axis 07/17/23 04/05/25 History baclofen 5 mg tablet 5 mg PO BID back pain 04/05/25 History calcium carbonate 600 mg PO BID supplement 04/05/25 History lenalidomide 15 mg capsule 15 mg .Route .COMPLEX #21 C APSULES 04/04/24 04/05/25 Rx (Revlimid) benzonatate 200 mg capsule 200 mg PO BID-TID PRN 09/1304/05/25 History acetaminophen 500 mg tablet 1,000 mg PO QMONTH 5 04/05/25 History amoxicillin 500 mg capsule 500 mg PO BID 02/01/2503/27 History dexamethasone 4 mg tablet 20 mg PO QMONTH 02/01/2507/21 History diphenhydramine HCl 25 mg tablet 25 mg PO QMONTH 02/0104/05/25 History (Allergy (diphenhydramine)) doxycycline hyclate 100 mg capsule 100 mg PO BID 02/0104/05/25 History levothyroxine 112 mcg tablet 112 mcg PO DAILY 02/01/25 04/05/25 History magnesium hydroxide 2,400 mg/10 mL 30 ml PO QDAY PRN 0 02/01/25 04/05/25 History oral suspension (Milk Of Magnesia Concentrated) polyethylene glycol 3350 17 gram 17 g PO QDAY 02/01/25 04/05/25 History oral powder packet simethicone 180 mg capsule 180 mg PO TID PRN 02/01/25 04/05/25 History Have you fallen in the past year?: No Central Venous Access Central Venous Access: Yes Port/PICC: Port Laboratory Tests 07/12/23 09/01/23 09/29/23 11:50 10:20 13:10 ELINA M-Raúl 0.2 H 0.1 H 0.1 H Free Woodside LC, Quant 7.0 18.4 15.5 Free Lambda LC, Quant 4.1 L 11.5 11.1 Free Woodside/Lambda Ratio 1.71 H 1.60 1.40 10/27/23 11/24/23 01/19/24 11:10 13:00 12:55 ELINA M-Raúl 0.1 H Not Observed Free Woodside LC, Quant 8.0 13.9 12.0 Free Lambda LC, Quant 4.0 L 10.4 Free Woodside/Lambda Ratio 2.00 H 1.34 1.69 H 02/16/24 04/12/24 06/07/24 12:45 12:20 14:15 ELINA M-Raúl Free Woodside LC, Quant 10.8 11.9 6.0 Free Lambda LC, Quant 7.1 8.5 3.2 L Free Woodside/Lambda Ratio 1.52 1.40 1.88 H 08/17/24 09/13/24 10/12/24 08:50 12:55 13:50 ELINA M-Raúl Free Woodside LC, Quant 4.9 7.0 6.1 Free Lambda LC, Quant 3.1 L 3.7 L 3.3 L Free Woodside/Lambda Ratio 1.58 1.89 H 1.85 H 11/09/24 12/07/24 01/04/25 13:28 14:21 13:18 ELINA M-Raúl Free Woodside LC, Quant 6.0 5.7 5.4 Free Lambda LC, Quant 2.7 L 2.7 L 2.7 L Free Woodside/Lambda Ratio 2.22 H 2.11 H 2.00 H 02/01/25 03/08/25 13:15 13:29 ELINA M-Raúl Free Woodside LC, Quant 6.4 7.6 Free Lambda LC, Quant 2.2 L 2.8 L Free Woodside/Lambda Ratio 2.91 H 2.71 H Exam Physical Exam Narrative ECOG 2, Const alert, oriented x3 and no apparent distress HEENT Face and Sinus: normal facial exam Teeth and Gingiva: poor dentition Eyes General Eye: normal appearance of both eyes Neck no JVD Resp clear to auscultation bilaterally Cardio regular rate and regular rhythm Jugular Venous Distention: Negative for JVD GI soft to palpation, non-tender and non-distended Back/Spine no thoracic nor lumbar tenderness Extremity General Extremity: edema bilateral lower extremity Details: moderate; Negative for clubbing or cyanosis Skin Rashes: no rashes Neuro oriented x3 and CN's II-XII intact bilaterally Neuro Narrative: Patient is paraplegic, Coordination / Balance: [id number] test normal Speech: speech normal Gait (Neuro): assistive device used walker Psych mental status grossly normal Coding Level of Care Code Off vis,est,level 4 Exam Problem Focused Diagnoses Multiple myeloma not having achieved remission C90.00 Multiple myeloma remission status: not in remission Anemia, unspecified type D64.9 Anemia type: unspecified type Chronic deep vein thrombosis (DVT) of other vein of both lower extremities I82.593 DVT location: lower extremity Affected thrombotic vein of extremity: other lower extremity vein Chronicity: chronic Laterality: bilateral Assessment and Plan Assessment and Plan (1) Multiple myeloma: Status: Chronic Qualifiers: Multiple myeloma remission status: not in remission Qualified Code(s): C90.00 - Multiple myeloma not having achieved remission (2) Anemia: Status: Chronic Qualifiers: Anemia type: unspecified type Qualified Code(s): D64.9 - Anemia, unspecified (3) DVT (deep venous thrombosis): Status: Chronic Qualifiers: DVT location: lower extremity Affected thrombotic vein of extremity: other lower extremity vein Chronicity: chronic Laterality: bilateral Qualified Code(s): I82.593 - Chronic embolism and thrombosis of other specified deep vein of lower extremity, bilateral Plan 69-year-old gentleman who presented October 2022 with paraplegia urine and stool incontinence due to 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 Work-up consistent with multiple myeloma kappa light chain disease, standard risk myeloma (normal cytogenetics and FISH panel). Patient is status post decompression, radiation therapy and started systemic therapy with daratumumab Revlimid and dexamethasone in February 2023 and achieved partial remission (more than 50% drop in kappa light chain) initial care was in [place] ([facility] for [facility] and radiation then Dr. Woodall). [facility] June 2023 to be close tohis sister starting maintenance DRyohana July 2023. His disease went into a very good partial remission with M protein no longer detected by October 2023. He went on Revlimid holiday started March 2024 and his M protein remained stable Chronic comorbid conditions: Residual paraplegia with urine and stool incontinence (has an indwelling Vanegas's catheter), hypertension, dyslipidemia, hypothyroidism. He has anemia of cancer and anticancer therapy, and developed bilateral lower extremities DVTs complicating malignancy on long-term anticoagulation with Eliquis. Plan: Managed jointly with [facility] 1-continue systemic therapy with Dd: daratumumab maintenance (4 weeks intervals ), and dexamethasone 20 mg down to day 1 of each treatment cycle (28 days cycles). 2. Supportive treatment: Acyclovir for shingles prophylaxis and advised to receive shingles vaccine, Bactrim for PCP prophylaxis (Wednesdays and Fridays). Has not seen the dentist for over a year (early 2023 was the last visit) will need to update dental clearance and resume zoledronic acid. 3. Continue long-term anticoagulant treatment for bilateral lower extremities DVTs complicated malignancy induced hyper coagulability. Hold anticoagulation for 48 hours prior to any invasive procedure including dental extractions. Impression and plan were discussed with patient. Jenn Perez MD Airplane Patroller, [facility] Divisions of Medical Oncology & Hematology Department of Internal Medicine [place] [phone] This note was generated using a voice recognition system software. Although itwas reviewed by the author prior to finalization, it may still contain incorrectwords, spelling, and punctuation that were not noted when reviewing prior to saving. If a clinically significant typo or inaccurately typed phrase is noted, please notify the author. Clinical Quality Measures Falls Risk Screening/Assistive Devices Have you fallen in the past year?: No 04/05/25 1346 <Electronically signed by Jenn varela MD> Date _ Jenn Perez MD Cosigner Signature: Date (if applicable) CC: Dr. Blade Milner, DO ~ [facility] [employer] Work Phone: 1(472) 516-156606-20-2025 History of Present illness Narrative* Gisel Wolf MD - 03/16/2025 10:40 AM EDT Attending physician: Gisel Wolf MD Referring physician: Jenn Kim Dr, MD Scott E Wilkins My recommendations will become communicated to the referring physician via electronic medical chartor through US mail. CHIEF COMPLAINT: [facility] HISTORY OF PRESENT ILLNESS: Armand Barron is a 69 y.o. male who presents to the 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 Please allow me to [...] calcium 8.6 Repeat blood work on 11/13/2022: Woodside 20.8, lambda 0.86, kappa/lambda ratio 24.3 No bone marrow biopsy done. Patient had been doing therapy at [facility] in [place] and staff noted that his incision began looking erythematous, with copious drainage. He was sent back to [facility] for evaluation by neurosurgery. Went to IR on 12/02 for drain placement and fluid sent for culture, no growth. He remained clinically very stable. Patient discharged to return to [facility] in [place] The patient received a course of 20 Dan delivered in 5 fractions to the thoracic spine encompassing T2-T7 (T1-T8). He was started on DRD on 03/08/23. There was delays due to delayed wound healing. INTERVAL HISTORY: The patient is here today for a visit. He is accompanied to the visit by his sister. Overall he thinks he is doing well. He has been following Dr Perez. He is getting daratumumab injections every 4 weeks. His last dose was on injection last week. He is tolerating therapy well. He does get constipated after his injection. He continues to live in a facility and is in the assisted living part. He feels the weakness in his legs are getting better. He is now walking more. He continues to endorse pain in his his shoulder- he thinks this is improved. He also endorses bloating in stomach. He denies diarrhea. He denies BRBPR or melena. He continues to be on eliquis. He had the urinary catheter removed in October. He has been able to urinate on his own. He has supplies for straight catherization but has not needed to do so. REVIEW OF SYSTEMS: Constitutional: (-) fever, (-) [...] mouth., Disp: , Rfl: Cholecalciferol 1.25 MG (65177 UT) capsule, Take by mouth., Disp: , [...] , Rfl: PMH: hypertension, hyperlipidemia, hypothyroidism, GERD, multiple myeloma PSH : epidural tumor and subsequent cord compression. 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 No Known Allergies PHYSICAL EXAMINATION: BP 134/69 (BP Position: Sitting) Pulse 51 Temp 98.1 F (36.7 C) (Infrared) Resp 18 Ht 1.6 m (5' 3") Wt 85.5 kg (188 lb 6.4 oz) SpO2 97% BMI 33.37 kg/m Performance status: ECOG PS 2, Karnofsky [...] orders placed or performed in visit on 03/16/25 COMPREHENSIVE METABOLIC PANEL Result Value Ref Range Sodium 139 135 - 145 mmol/L Potassium 4.2 3.5 - 5.0 mmol/L Chloride 103 98 - 108 mmol/L BUN 17 7 - 25 mg/dL Creatinine 0.95 0.70 - 1.30 mg/dL Glucose 103 Nonfastin-179 mg/dL; Fastin-99 mg/dL Bilirubin Total 0.5 <1.5 mg/dL Albumin 4.2 3.5 - 5.0 g/dL Total Protein 6.1 (L) 6.4 - 8.3 g/dL AST 13 10 - 39 U/L ALP 49 32 - 126 U/L Calcium 9.3 8.6 - 10.5 mg/dL CO2 30 21 - 31 mmol/L ALT 15 10 - 52 U/L Bun/Crea Ratio 18 Osmolality (Calculated) 293 278 - 305 mOsm/kg Anion Gap 10 7 - 17 mmol/L eGFR, CKD-EPI, Male 88 >=60 mL/min/1.73m2 CBC AND ELECTRONIC DIFF Result Value Ref Range WBC Count 4.53 3.73 - 10.10 K/uL RBC Count 4.58 4.38 - 5.83 M/uL Hemoglobin 13.3 (L) 13.4 - 16.8 g/dL Hematocrit 40.6 39.6 - 48.8 % Mean Cell Volume 88.6 79.0 - 94.5 fL Mean Cell Hgb 29.0 26.1 - 33.3 pg Mean Cell Hgb Conc 32.8 31.9 - 36.5 g/dL RBC Distribution 14.2 10.9 - 14.3 % Platelet Count 143 (L) 146 - 337 K/uL Mean Platelet Volume 11.2 8.7 - 12.3 fL DIFF STATUS Electronic Differential Segs + Bands Auto 72.6 % Immature Grans % 0.4 % Lymphocyte % Auto 13.2 % Monocyte % Auto 10.2 % Eosinophil % Auto 2.9 % Basophil % Auto 0.7 % Nucleated RBC 0.0 <=0.2 /100 WBC Segs + Bands,Absolute Auto 3.29 1.57 - 6.19 K/uL Immature Grans Absolute <0.04 <=0.07 K/uL Abs Lymph Auto 0.60 (L) 0.83 - 3.57 K/uL Abs [place] Auto 0.46 0.24 - 0.93 K/uL Abs Eos Auto 0.13 0.00 - 0.48 K/uL Abs Baso Auto [...] is unlikely to represent an abscess. PATHOLOGY: [id number] (11/11/2022) A. Spinal epidural mass: Woodside-restricted plasma cell neoplasm Bone marrow 01/29/23 (A-C) [...] calcium 8.6 Repeat blood work on 11/13/2022: Woodside 20.8, lambda 0.86, kappa/lambda ratio 24.3 BM [...] with continuing maintenance daratumumab every 4 weeks. # Myeloma bone disease: - continue xgeva to reduce the risk of skeletal related events, decrease bone pain- q month during induction followed by q3 months for total 2 years - Calcium (1200 mg) and vitamin D (800-1000 units) daily # Secondary immunodeficiency: continue acyclovir 400 mg BID for HSV/VZV prophylaxis # h/o VTE:- continue eliquis # BPH: follow up with urology # other chronic medical problems: - he will follow up with his other providers. # RTC 6 months Gisel Wolf MD Airplane Patroller Hematology 03/16/25 Pager # [phone] This note was generated with the use of voice dictation software. Errors may be present despite attempts at proofreading. Please page/call with any questions. [facility] Instructions* Patient Instructions* Kamila Gregg RN - 03/16/2025 10:40 AM EDT Medical team Doctor: Dr. Gisel Wolf Primary RN: Kamila LOPEZ Contact numbers Clinic phone: [phone] Clinic fax: [phone] Plan for today - follow up with Dr conrad - continue daratumumab - stay off revlimid - follow up in 6 months Results for orders placed or performed in visit on 03/16/25 CBC AND ELECTRONIC DIFF Result Value Ref Range WBC Count 4.53 3.73 - 10.10 K/uL RBC Count 4.58 4.38 - 5.83 M/uL Hemoglobin 13.3 (L) 13.4 - 16.8 g/dL Hematocrit 40.6 39.6 - 48.8 % Mean Cell Volume 88.6 79.0 - 94.5 fL Mean Cell Hgb 29.0 26.1 - 33.3 pg Mean Cell Hgb Conc 32.8 31.9 - 36.5 g/dL RBC Distribution 14.2 10.9 - 14.3 % Platelet Count 143 (L) 146 - 337 K/uL Mean Platelet Volume 11.2 8.7 - 12.3 fL DIFF STATUS Electronic Differential Segs + Bands Auto 72.6 % Immature Grans % 0.4 % Lymphocyte % Auto 13.2 % Monocyte % Auto 10.2 % Eosinophil % Auto 2.9 % Basophil % Auto 0.7 % Nucleated RBC 0.0 <=0.2 /100 WBC Segs + Bands,Absolute Auto 3.29 1.57 - 6.19 K/uL Immature Grans Absolute <0.04 <=0.07 K/uL Abs Lymph Auto 0.60 (L) 0.83 - 3.57 K/uL Abs [place] Auto 0.46 0.24 - 0.93 K/uL Abs Eos Auto 0.13 0.00 - 0.48 K/uL Abs Baso Auto <0.04 0.00 - 0.09 K/uL documented in this encounterU [facility] History of Present illness Narrative* Leticia Bowie, OT/L - 03/12/2025 12:22 PM EDT Episode Visit Count: 1 Start of Care Date: 03/12/25 Onset Date: 09/27/24 (indicated had loss of BLE's 11/19 with medical follow up soon after which determined that he had multiple myeloma; 3 surgeries followed with chemo and radiation, now immune therapy) Plan of Care Certification Date: 03/12/25 Next Certification Due Date: 04/11/25 Patient Identified by Name and Date of : Yes REHABILITATION AND SPORTS THERAPY OCCUPATIONAL THERAPY INSTRUMENTAL ADL AND COMMUNITY MOBILITY EVALUATION SUBJECTIVE: Armand Barron is a 69 year old male seen today for OT functional community mobility assessment due to diagnosis of T2 spine surgery/compression fracture related to multiple myeloma diagnosis. His sister brought him to the appointment and provided helpful information throughout. He indicated that he was noticing back pain in 2021 while living on his own in [place] and working for [employer]. He moved back to [facility] where he is from as has brother and sister in that area while retired officially the end of 2022. He ended up having issues with wounds/UTI's which required inpatient hospital stays and SNF's. He ended up moving into [facility] facility once he was stable with health issues. He indicated his goal to move out on his own again eventually and to return to driving so that he can access community on his own. His sister indicated thatyovani is DPOA for healthcare while their brother is POA for finances while both in frequent contact with him. Functional Limitations: walking in the community, heavy exertion, physical activities, driving, cleaning, cooking Prior Level of Function: Required assistance Home Environment Patient Lives With: Facility Care Assistance Available: 24-Hour Home Type: Apt/Condo Entry To Home: No Stairs Laundry: facilities in building Equipment Owned: Rollator, Walker- Wheeled Transportation: Travels as a passenger, Car (2016 [employer]) Patient Goals: to live on own eventually and return to driving Intake Information: Prescription present Previous Treatment: Physical Therapy , Occupational Therapy, Surgery , Acute Hospital , SNF , Home Therapy Falls Interview: No positive findings with falls interview (no recent falls) Relevant History Past Relevant Medical Conditions: Hypertension (abnormal posture issues/kyphosis, neurogenic bladder) Highest Level of Education: Bachelors Right or Left Handed: Right Recreation / Current Exercise: none other than walking in his apartment and to the dining area while he indicated he likes to try and get 1000 steps/daily Hobbies / Interests: playing/watching things on his phone, TV, crossword puzzles/word search puzzles Home Environment Patient Lives With: Facility Care Assistance Available: 24-Hour Home Type: Apt/Condo Entry To Home: No Stairs Laundry: facilities in building Equipment Owned: Rollator, Walker- Wheeled Transportation: Travels as a passenger, Car (2016 [employer]) Pain Level: 0 Post Treatment Pain Level: No Change Activities of Daily Living: supervision for showering while he does sit down for same, can dress himself and complete hygiene; showers 2x's/week as when assist available Instrumental Activities of Daily Living: currently all food preparation, laundry, most cleaning completed by staff in addition to his medication management; does own bill paying; family or facility provides for his transportation needs currently Driving History: 48 years while has not driven since 11/09/22 State: [place] License/Permit #: [id number] Expires: 07/12/26 Restrictions: corrective lenses required for driving as on license (which he currently does not have) 5 Yr. Violation HX: none 5 Yr. MVA HX: none Handicap Parking Placard: unknown OBJECTIVE MEASURES WITH LEVEL OF FUNCTION: SENSORIMOTOR ASSESSMENT: Hand dominance: Right Level of Function Relevant to I ADL, Community Mobility, and Driving: Right UE: Sufficient while slight decreased strength Left UE: Sufficient while slight decreased strength Rn Interventional: Sufficient Right LE: Marginal while moderate pitting edema indicating that he has compression garments but notusing as hard to put on; also numbness and tingling in same; clonus present at times Left LE: Marginal while severe pitting edema indicating that he has compression garments for same but not using the same; also number and tingling in same; decreased coordination Sitting Balance: severe posture abnormalities including kyphosis, rounder shoulder present when sitting or standing Head / Neck: severe neck ROM limitations including for extension and rotation to right while also limited for left rotation Ambulation: has decreased distal BLE's movement especially L ankle while prefers to use rollator which is short for him; had him use wheeled walker for part of session which he tolerated well while improved gait, posture, and more work required by him to ambulate so suggested that he begin to use his at home more frequently Transfers: slow but able to on own Loading of Device: as assist currently available but this will need to be addressed in the future if he is able to return to driving on his own ASSESSMENT OF SENSORIMOTOR FUNCTION: SIGNIFICANT CONCERNS RELATED TO HIS CURRENT PHYSICAL DEFICITS VISION SCREENING: Vision Vision Deficits: Wears corrective lenses Corrective lenses: he indicated that he had last formal eye exam in 2019 while new glasses at that time but then broke them in late 2021 and has not done anything to get replacements; does wear reading glasses; also indicated that he has noticed blurry vision more significant with immune therapy treatments Corrective Lenses: Not in possession Distant Acuity: Binocular: 20 / 50-1 Right: 20 / 200 Left: 20 / 50 Color Perception: failed color perception but intact for color recognition Depth Perception: Fail Contrast Sensitivity: moderate to severe decrease for both eyes Peripheral Vision: Within legal limits for driving Right Eye: Acknowledged all stimuli. Left Eye: Acknowledged all stimuli. Pursuits: Appeared Irregular / Slow and Decreased Speed Saccades: Appeared Irregular / Slow and Decreased Speed Convergence: WFL Nystagmus: Not Apparent Diplopia: No complaints Strabismus: No OU Cataracts: No OU Glaucoma: No. OU Other Eye Conditions / Diseases Reported: nothing indicated ASSESSMENT OF VISUAL FUNCTION: PRIOR TO ANY ADDITIONAL FOLLOW UP, MAXI WILL NEED TO HAVE FORMAL COMPREHENSIVE EYE EXAM WITH APPROPRIATE FOLLOW UP INCLUDING CORRECTIVE LENSES REPLACED COGNITIVE / PERCEPTUAL ASSESSMENT: SHORT BLESSED TEST Short Blessed Test 1. What Year Is It Now?: Correct 2. What Month Is It Now?: Correct 3. What Time is it? (WIthin 1 hour): Correct 4. Count Aloud Backwards 20 to 1 (Errors): 0 5. Months of the Year in Reverse Order (Errors): 0 6. Memory Phrase (Errors) : 0 Short Blessed Final Score: 0 Short Blessed Test Scorin-8; Normal to minimal impairment 9-19; Moderate impairment 20-28; Severe impairment [email or web address] Immediate Recall: WNL @ 6/6 digits Visual Scanning/Attention: [place] Making Part B (sec): 102 sec 50th percentile norm for age group: 60-69; Part A: 48 seconds, Part B: 119 seconds [place]ortun[place] Clock Drawing Test: Armand Barron correctly included 7/8 criteria for this test. He failed toinclude or correctly place: the numbers equally spaced, or nearly so, from the edge of the bois forte According to The Physician's Guide to Assessing and Counseling Older Drivers, 2003, any incorrect element in the [place]ortun[place] Clock Scoring signals a need for intervention. Motor Free Visual Perception Test: MVPT Total Score: 31 MVPT Processing time (seconds): 4.2 Norms: 50-69 y/o: Raw Score 32-36; Processing Time 3.0-5.4 seconds +/- .5 seconds Visual Inattention / Unilateral Neglect: Not Apparent ASSESSMENT OF COGNITIVE / PERCEPTUAL FUNCTION: Compatible with Driving [place] Drapery Operator Simulator: Simple Brake Reaction Time: Average Distance: 51.7 feet (Normal = 60 feet) HE COMPLETED SEVERAL REPS WHILE THERE WERE SEVERAL MISSES SO THE NUMBER IS NOT ACCURATE WITH REGARDS TO PERFORMANCE ONLY COULD AVERAGE THOSE HE WAS ABLE TO RESPOND TO Education: Education Learning Preferences: Explanation Barriers: None Learning/educational needs: Safety, Health promotion, Plan of Care Education Provided: Yes, see treatment interventions for education provided Education Provided To: Patient, Family Education Mode/Type: Explanation/Discussion Response to Education/Teach Back: States/Identifies TREATMENT: Evaluation Self-Skilled Nursing Management: 1: refer to details in this report 2: provided support and education to patient/sister as appropriate Skilled Intervention: Skilled judgment in the selection of proper modification for activity of daily living/home management based on clinical presentation, deficits, and needs. Educated the patient regarding recommendations and provided written instruction to facilitate compliance. Reviewed patient specific diagnosis in relation to activities of daily living/home management. Activity progression based on professional judgement. 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 Due to the complex nature of the safe operation of a motor vehicle, and considering the demands of integrating changing environmental conditions, and visual, cognitive, and physical skills, successful completion of this program is not a guarantee of safe driving in the future. ASSESSMENT OF INSTRUMENTAL ADL AND COMMUNITY MOBILITY: Armand Barron presents with the diagnosis of T2 SPINE SURGERY DUE TO MULTIPLE MYELOMA. This patient presents with impairments of SLOW OCULOMOTOR SKILLS, DOES NOT HAVE CURRENT CORRECTIVE LENSES WHILE HAS SIGNIFICANT FAR ACUITY DEFICITS/DECREASED CONTRAST SENSITIVITY/LACKING STEREO DEPTH PERCEPTION, SEVERE POSTURE ABNORMALITIES WHICH ARE CHRONICHOWEVER ROLLATOR TOO LOW FOR HIM SO DOES NOT ENCOURAGE MORE UPRIGHT POSTURE/LIMITED PHYSICAL ACTIVITY/SEVERE BLE EDEMA WHILE NOT USING COMPRESSION GARMENTS THAT HE HAS WHILE CAN HAVE AIDE ASSIST WITHGETTING SAME ON, CURRENTLY ALL IADL'S BEING COMPLETED FOR HIM WHILE HE WANTS TO LIVE ON OWN SO NEEDS TO DO MORE FOR SELF IN PREPARATION/PRACTICE, SIGNIFICANT DECREASED NECK ROM. He may benefit from skilled occupational therapy services to REASSESS HIS STATUS IN THE FUTURE FOR THESE SKILLS. RECOMMENDATIONS: ADL/IADL Recommendations: DISCUSSED RECOMMENDATION OF USING WHEELED WALKER INSTEAD OF ROLLATOR AROUND HIS APARTMENT AND IN THE HALLS IF HAS SUPERVISION, INCREASING OVERALL ACTIVITY LEVEL INCLUDING COGNITIVELY AND WITH ADL'S/IADL'S SINCE HIS GOAL IS TO EVENTUALLY MOVE OUT ON HIS OWN (I.E. 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 ROOM); EXPLAINED THAT MORE ACTIVITY WILL BENEFIT HIM IN MANY WAYS; ALSO DISCUSSED THE NEED FOR HIM TO USE HIS COMPRESSION GARMENTS FOR THE SIGNIFICANT BLE EDEMA HE HAS THIS WILL ALSO HELP HIM TO MOVE MORE EASILY Driving Recommendations: REFRAIN FROM DRIVING CURRENTLY NOT AN APPROPRIATE CANDIDATE TO RETURN TO DRIVING; RECOMMEND REASSESSMENT OF HIS SKILLS ONCE HE IS ABLE TO COMPLETE THE VARIOUS THINGS THAT WERE INDICATED IN THIS REPORT WITH TIME FRAME UNKNOWN Whitney's Visual Field Exam Requested: Yes Recommended Complete Eye Exam: Yes Planned Interventions, Frequency, and Duration: Current Frequency: Discontinue Therapy Services Duration: 1 visit Total Number of Visits Planned: 0 Patient demonstrates good understanding of results and recommendations that were discussed and agreed upon by patient/family. 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 Patient was seen for 1 visits from Start of Care Date: 03/12/25 and treatment included: Drapery Operator rehab evaluation. No specialty comments available. LAUREN St CDRS, LDI [facility] Evaluation note* Diagnosis Onset Date Resolution Status Admit Date Anemia chronic March 08 1:06pm DVT (deep venous thrombosis) chronic March 08, 2025 1:06pm Multiple myeloma chronic February 1:06pm Anemia chronic April 05 12:26pm DVT (deep venous thrombosis) chronic April 05, 2025 12:26pm Multiple myeloma chronic March 12:26pm Anemia chronic May 02 1:13pm DVT (deep venous thrombosis) chronic May 02, 2025 1:13pm Multiple myeloma chronic May 022024 1:13pm Open wound of tissue overlying spine acute May 10 1:27pm Anemia chronic May 31, 2025 12:54pm DVT (deep venous thrombosis) chronic May 31, 2025 12:54pm Multiple myeloma chronic Septembe 2024 12:54pm Anemia chronic June 28, 2 025 1:06pm DVT (deep venous thrombosis) chronic June 28, 2025 1:06pm Multiple myeloma chronic June 28, 2025 1:06pm [facility] Work Phone: [phone]) 714-211106-12-2025 [facility] [address] [place], [place] [address]mal[place] [address] OFFICE VISIT Date of Service: 03/08/25 1359 MR#: [id number] Acct: [id number] Name: ARMAND BARRONN Rep #: [id number] : 1955 From: Zayda Dre MANAGER BUSINESS MANAGER BUSINESS-C Age/Sex: 69/M [place] [facility] [place] Status: Signed HPI Subjective Date of Service 03/08/25 Chief Complaint Multiple myeloma on treatment History of Present Illness 69-year-old gentleman who is transferring his care for multiple myeloma from [place] to [place] closer to family 2023. He presented in October2022 with paraplegia due to spinal cord compression. November 10, 2022 MRI of the spine: Osseous metastatic disease with pathologic compression fractures and cord compression by epidural tumor at T2-T7. November 11, 2022 thoracic decompression and removal of epidural tumor at T2 andT7 and posterior thoracic fusion C7-T4 by pedicle screw fixation at [facility]. 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 December 29-2022 radiation therapy 20 Gy delivered in 5 fractions postoperatively T1-T8. January 29, 2023 bone marrow aspirate and biopsy showed kappa restricted plasma cellscompromised 25 % ofmarrow cellularity, had normal cytogenetics and negative FISH panel. October 2022 SPEP ELINA showed a kappa free light chain of 137 Mg per DL with a kappa lambda ratio of 114. [place] chains peaked to 513 by February 2023. Hepatitis B serologies were negative I was not able to find an faxed records a pretreatment beta-2 microglobulin, skeletal survey or PETscan. February 2023 started systemic therapy with daratumumab, Revlimid and dexamethasone under the care of Dr. Woodall in [place]. Revlimid dose had to be reduced to 15mg 3 weeks on 1 week rest presumably dueto cytopenias and by March 2023 he showed a partial remission of his disease was more than 50% drop in the free kappa light chains to 11 and ratio down to 2. In the course of his illness he was diagnosed with bilateral lower extremities DVTs and was placed on Eliquis.. Treatment summary and response: October 2022 thoracic decompression. December 2022 radiation therapy T1-T8. February 2023?February 2024 daratumumab Revlimid (initially 25 mg then reduced to 15 Mg 3 weeks on 1 week off) and dexamethasone. DE March 2024 daratumumab and dexamethasone: Remains in [place]. Supportive treatment: Acyclovir and Bactrim prophylaxis. Bone supportive therapy with zoledronic acid with some interruptions due to dental issues. Interval History The patient is presenting to clinic for an evaluation anticipating he will receive cycle 26 daratumumab/dex (delayed by one week d/t travel). Constipation improved. LBM 03/07/25. Taking Taking Miralax and increasing PO fluid intake. No change in numbness/tingling of BLE. Confirms he took Benadryl 50 mg, acetaminophen 1000 mg and dexamethasone 20 mg at approx 1240. Taking acyclovir as advised. 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 History of radiation therapy Non-healing surgical wound Paraplegia Anemia Multiple myeloma DVT (deep venous thrombosis) Back pain Hypothyroidism Hypertension Hypercholesteremia Surgical History History of back surgery History of tooth extraction H/O laminectomy History of cholecystectomy Family History Mother Follicular lymphoma Father Hypertension Heart disease Brother Hypertension Other Cancer Social History housing: assisted living facility Smoking Status: Never smoker alcohol intake: former substance use type: does not use ROS ROS Narrative Negative except as documented in the interval HPI Intake Vital Signs 02/01/25 13:37 03/08/25 14:00 03/08/25 14:08 Height 5 ft 5 in 5 ft 5 in 5 ft 5 in Weight: 176 lb 5 oz BMI 29.3 BP 115/65 Blood Pressure Location Lt brachial Position Sitting Respiration 18 Pulse 46 L Pulse Source Monitor Temp 98.8 F Temperature Source Temporal Artery Pulse Oximetry (%) 98 Oxygen Delivery Method room air Intake Is patient in pain?: No Allergies No Known Allergies Allergy (Verified 03/08/25 14:07) Medications ?Medication ?Instructions ?Recorded ?Confirmed ?Type acyclovir 400 mg tablet 400 mg PO Q12H virus 3 02/01/25 History amlodipine 10 mg tablet 10 mg PO DAILY bp 07/08/23 0 02/01/25 History ascorbic acid (vitamin C) 1,000 mg 1 g PO BID suppleme nt 07/08/23 02/01/25 History tablet cholecalciferol (vitamin D3) 125 125 mcg PO DAILY supp lement 07/08/23 02/01/25 History mcg (5,000 unit) capsule gabapentin 100 mg capsule 100 mg PO TID back 07/08/23 02/01/25 History magnesium oxide 250 mg PO .noon bowel health 07/08/23 02/01/25 History melatonin 3 mg capsule 6 mg PO HS sleep 07/08/23 History metoprolol tartrate 50 mg tablet 50 mg PO BID BP 07/0802/01/25 History omeprazole 20 mg tablet,delayed 20 mg PO DAILY gerd 02/01/25 History release Disability Placard #1 ea 07/12/23 01/04/25 Rx apixaban 5 mg tablet (Eliquis) 5 mg PO BID vte prophyl axis 07/17/23 02/01/25 History baclofen 5 mg tablet 5 mg PO BID back pain 02/01/25 History calcium carbonate 600 mg PO BID supplement 02/01/25 History lenalidomide 15 mg capsule 15 mg .Route .COMPLEX #21 C APSULES 04/04/24 01/04/25 Rx (Revlimid) benzonatate 200 mg capsule 200 mg PO BID-TID PRN 09/1302/01/25 History acetaminophen 500 mg tablet 1,000 mg PO QMONTH 5 02/01/25 History amoxicillin 500 mg capsule 500 mg PO BID 02/01/25 0505/21 History dexamethasone 4 mg tablet 20 mg PO QMONTH 02/01/2505/21 History diphenhydramine HCl 25 mg tablet 25 mg PO QMONTH 02/0102/01/25 History (Allergy (diphenhydramine)) doxycycline hyclate 100 mg capsule 100 mg PO BID 02/0102/01/25 History levothyroxine 112 mcg tablet 112 mcg PO DAILY 02/01/25 02/01/25 History magnesium hydroxide 2,400 mg/10 mL 30 ml PO QDAY PRN 0 02/01/25 02/01/25 History oral suspension (Milk Of Magnesia Concentrated) polyethylene glycol 3350 17 gram 17 g PO QDAY 02/01/25 02/01/25 History oral powder packet simethicone 180 mg capsule 180 mg PO TID PRN 02/01/25 02/01/25 History Have you fallen in the past year?: No Central Venous Access Central Venous Access: Yes Port/PICC: Port Laboratory Tests 02/01/25 03/08/25 13:15 13:29 WBC 4.2 L Hgb 13.0 Hct 39.7 L Plt Count 147 L Absolute Neuts (auto) 2.9 Sodium 140 Potassium 4.2 Chloride 103 Carbon Dioxide 25.4 BUN 18 Creatinine 1.03 Glucose 99 Calcium 9.1 Total Bilirubin 0.25 AST 17 ALT 15 Alkaline Phosphatase 59 Albumin 4.0 ELINA M-Raúl 0.1 H Exam Physical Exam Narrative ECOG 2, Const alert, oriented x3 and no apparent distress HEENT Face and Sinus: normal facial exam Teeth and Gingiva: poor dentition Eyes General Eye: normal appearance of both eyes Neck no JVD Resp clear to auscultation bilaterally Cardio regular rate and regular rhythm Jugular Venous Distention: Negative for JVD GI soft to palpation, non-tender and non-distended Back/Spine no thoracic nor lumbar tenderness Extremity General Extremity: edema bilateral lower extremity Details: moderate; Negative for clubbing or cyanosis Skin Rashes: no rashes Neuro oriented x3 and CN's II-XII intact bilaterally Speech: speech normal Gait (Neuro): assistive device used walker Psych mental status grossly normal Attitude: calm and engaged Coding Level of Care Code Off vis,est,level 4 Exam Problem Focused Diagnoses Multiple myeloma not having achieved remission C90.00 Multiple myeloma remission status: not in remission Anemia, unspecified type D64.9 Anemia type: unspecified type Chronic deep vein thrombosis (DVT) of other vein of both lower extremities I82.593 DVT location: lower extremity Affected thrombotic vein of extremity: other lower extremity vein Chronicity: chronic Laterality: bilateral Assessment and Plan Assessment and Plan (1) Multiple myeloma: Status: Chronic Qualifiers: Multiple myeloma remission status: not in remission Qualified Code(s): C90.00 - Multiple myeloma not having achieved remission (2) Anemia: Status: Chronic Qualifiers: Anemia type: unspecified type Qualified Code(s): D64.9 - Anemia, unspecified (3) DVT (deep venous thrombosis): Status: Chronic Qualifiers: DVT location: lower extremity Affected thrombotic vein of extremity: other lower extremity vein Chronicity: chronic Laterality: bilateral Qualified Code(s): I82.593 - Chronic embolism and thrombosis of other specified deep vein of lower extremity, bilateral Plan 69-year-old gentleman who presented October 2022 with paraplegia urine and stool incontinence due to 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 Work-up consistent with multiple myeloma kappa light chain disease, standard risk myeloma (normal cytogenetics and FISH panel). Patient is status post decompression, radiation therapy and started systemic therapy with daratumumab Revlimid and dexamethasone in February 2023 and achieved partial remission (more than 50% drop in kappa light chain) initial care was in [place] ([facility] for [facility] and radiation then Dr. Woodall). Transferring care to [facility] June 2023 to be close tohis sister startingmaintenance Aislinn July 2023. His disease went into a very good partial remission with M protein no longer detected by October 2023. Revlimid holiday started March 2024 and his M protein remained stable Chronic comorbid conditions: Residual paraplegia with urine and stool incontinence (has an indwelling Vanegas's catheter), hypertension, dyslipidemia, hypothyroidism. He has anemia of cancer and anticancer therapy, and developed bilateral lower extremities DVTs complicating malignancy on long-term anticoagulation with Eliquis. Plan: [facility] jointly with [facility] 1-continue systemic therapy with Dd: daratumumab maintenance (4 weeks intervals ), and dexamethasone 20 mg down to day 1 of each treatment cycle (28 days cycles). Proceed with cycle 26 mazin/dex today. 2. Supportive treatment: Acyclovir for shingles prophylaxis and advised to receive shingles vaccine, Bactrim for PCP prophylaxis (Wednesdays and Fridays). Patient had not seen the dentist forover a year, updated dental clearance form requested and received today. Will have nursing enter a prior auth with his insurance and resume Zometa today. 3. Continue long-term anticoagulant treatment for bilateral lower extremities DVTs complicated malignancy induced hyper coagulability. Hold anticoagulation for 48 hours prior to any invasive procedure including dental extractions. RTO 04/05/25 for ?cycle 27 mazin/dex Clinical Quality Measures Falls Risk Screening/Assistive Devices Have you fallen in the past year?: No 03/08/25 1438 h MANAGER BUSINESS MANAGER BUSINESS-C> Date _ Zayda ReidValentin MANAGER BUSINESS MANAGER BUSINESS-C Cosigner Signature: Date (if applicable) CC: ~ [facility]06-12-2025 Progress note Author Zayda Hanson [facility] Note Date/Time March 08, 2025 2:38 pm [facility] [address] [place] [address]. [place] [address] OFFICE VISIT Date of Service: 03/08/25 1359 MR#: [id number] Acct: [id number] Name: ARMAND BARRON Rep #: [id number] : 1955 From: Zayda Erickson MANAGER BUSINESS MANAGER BUSINESS-C Age/Sex: 69/M Location[place] [facility] [place] Status: Signed HPI Subjective Date of Service 03/08/25 Chief Complaint Multiple myeloma on treatment History of Present Illness 69-year-old gentleman who is transferring his care for multiple myeloma from [place] to [facility] closer to family 2023. He presented in October2022 with paraplegia due to spinal cord compression. November 10, 2022 MRI of the spine: Osseous metastatic disease with pathologic compression fractures and cord compression by epidural tumor at T2-T7. November 11, 2022 thoracic decompression and removal of epidural tumor at T2 andT7 and posterior thoracic fusion C7-T4 by pedicle screw fixation at [facility]. 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 December 29-2022 radiation therapy 20 Gy delivered in 5 fractions postoperatively T1-T8. January 29, 2023 bone marrow aspirate and biopsy showed kappa restricted plasma cellscompromised 25 % of marrow cellularity, had normal cytogenetics and negative FISH panel. October 2022 SPEP ELINA showed a kappa free light chain of 137 Mg per DL with a kappa lambda ratio of 114. [place] chains peaked to 513 by February 2023. Hepatitis B serologies were negative I was not able to find an faxed records a pretreatment beta-2 microglobulin, skeletal survey or PET scan. February 2023 started systemic therapy with daratumumab, Revlimid and dexamethasone under the care of Dr. Woodall in [place]. Revlimid dose had to be reduced to 15mg 3 weeks on 1 week rest presumably due to cytopenias and by March 2023 he showed a partial remission of his disease was more than 50% drop in the free kappa light chains to 11 and ratio down to 2. In the course of his illness he was diagnosed with bilateral lower extremities DVTs and was placed on Eliquis.. Treatment summary and response: October 2022 thoracic decompression. December 2022 radiation therapy T1-T8. February 2023?February 2024 daratumumab Revlimid (initially 25 mg then reduced to 15 Mg 3 weeks on 1 week off) and dexamethasone. [place] March 2024 daratumumab and dexamethasone: Remains in [place]. Supportive treatment: Acyclovir and Bactrim prophylaxis. Bone supportive therapy with zoledronic acid with some interruptions due to dental issues. Interval History The patient is presenting to clinic for an evaluation anticipating he will receive cycle 26 daratumumab/dex (delayed by one week d/t travel). Constipation improved. LBM 03/07/25. Taking Taking Miralax and increasing PO fluid intake. No change in numbness/tingling of BLE. Confirms he took Benadryl 50 mg, acetaminophen 1000 mg and dexamethasone 20 mg at approx 1240. Taking acyclovir as advised. 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 History of radiation therapy Non-healing surgical wound Paraplegia Anemia Multiple myeloma DVT (deep venous thrombosis) Back pain Hypothyroidism Hypertension Hypercholesteremia Surgical History History of back surgery History of tooth extraction H/O laminectomy History of cholecystectomy Family History Mother Follicular lymphoma Father Hypertension Heart disease Brother Hypertension Other Cancer Social History housing: assisted living facility Smoking Status: Never smoker alcohol intake: former substance use type: does not use ROS ROS Narrative Negative except as documented in the interval HPI Intake Vital Signs 02/01/25 13:37 03/08/25 14:00 03/08/25 14:08 Height 5 ft 5 in 5 ft 5 in 5 ft 5 in Weight: 176 lb 5 oz BMI 29.3 BP 115/65 Blood Pressure Location Lt brachial Position Sitting Respiration 18 Pulse 46 L Pulse Source Monitor Temp 98.8 F Temperature Source Temporal Artery Pulse Oximetry (%) 98 Oxygen Delivery Method room air Intake Is patient in pain?: No Allergies No Known Allergies Allergy (Verified 03/08/25 14:07) Medications ?Medication ?Instructions ?Recorded ?Confirmed ?Type acyclovir 400 mg tablet 400 mg PO Q12H virus 3 02/01/25 History amlodipine 10 mg tablet 10 mg PO DAILY bp 07/08/23 0 02/01/25 History ascorbic acid (vitamin C) 1,000 mg 1 g PO BID suppleme nt 07/08/23 02/01/25 History tablet cholecalciferol (vitamin D3) 125 125 mcg PO DAILY supp lement 07/08/23 02/01/25 History mcg (5,000 unit) capsule gabapentin 100 mg capsule 100 mg PO TID back 07/08/23 02/01/25 History magnesium oxide 250 mg PO .noon bowel health 07/08/23 02/01/25 History melatonin 3 mg capsule 6 mg PO HS sleep 07/08/23 History metoprolol tartrate 50 mg tablet 50 mg PO BID BP 07/0802/01/25 History omeprazole 20 mg tablet,delayed 20 mg PO DAILY gerd 02/01/25 History release Disability Placard #1 ea 07/12/23 01/04/25 Rx apixaban 5 mg tablet (Eliquis) 5 mg PO BID vte prophyl axis 07/17/23 02/01/25 History baclofen 5 mg tablet 5 mg PO BID back pain 02/01/25 History calcium carbonate 600 mg PO BID supplement 02/01/25 History lenalidomide 15 mg capsule 15 mg .Route .COMPLEX #21 C APSULES 04/04/24 01/04/25 Rx (Revlimid) benzonatate 200 mg capsule 200 mg PO BID-TID PRN 09/1302/01/25 History acetaminophen 500 mg tablet 1,000 mg PO QMONTH 5 02/01/25 History amoxicillin 500 mg capsule 500 mg PO BID 02/01/2505/21 History dexamethasone 4 mg tablet 20 mg PO QMONTH 02/01/2505/21 History diphenhydramine HCl 25 mg tablet 25 mg PO QMONTH 02/0102/01/25 History (Allergy (diphenhydramine)) doxycycline hyclate 100 mg capsule 100 mg PO BID 02/0102/01/25 History levothyroxine 112 mcg tablet 112 mcg PO DAILY 02/01/25 02/01/25 History magnesium hydroxide 2,400 mg/10 mL 30 ml PO QDAY PRN 0 02/01/25 02/01/25 History oral suspension (Milk Of Magnesia Concentrated) polyethylene glycol 3350 17 gram 17 g PO QDAY 02/01/25 02/01/25 History oral powder packet simethicone 180 mg capsule 180 mg PO TID PRN 02/01/25 02/01/25 History Have you fallen in the past year?: No Central Venous Access Central Venous Access: Yes Port/PICC: Port Laboratory Tests 02/01/25 03/08/25 13:15 13:29 WBC 4.2 L Hgb 13.0 Hct 39.7 L Plt Count 147 L Absolute Neuts (auto) 2.9 Sodium 140 Potassium 4.2 Chloride 103 Carbon Dioxide 25.4 BUN 18 Creatinine 1.03 Glucose 99 Calcium 9.1 Total Bilirubin 0.25 AST 17 ALT 15 Alkaline Phosphatase 59 Albumin 4.0 ELINA M-Raúl 0.1 H Exam Physical Exam Narrative ECOG 2, Const alert, oriented x3 and no apparent distress HEENT Face and Sinus: normal facial exam Teeth and Gingiva: poor dentition Eyes General Eye: normal appearance of both eyes Neck no JVD Resp clear to auscultation bilaterally Cardio regular rate and regular rhythm Jugular Venous Distention: Negative for JVD GI soft to palpation, non-tender and non-distended Back/Spine no thoracic nor lumbar tenderness Extremity General Extremity: edema bilateral lower extremity Details: moderate; Negative for clubbing or cyanosis Skin Rashes: no rashes Neuro oriented x3 and CN's II-XII intact bilaterally Speech: speech normal Gait (Neuro): assistive device used walker Psych mental status grossly normal Attitude: calm and engaged Coding Level of Care Code Off vis,est,level 4 Exam Problem Focused Diagnoses Multiple myeloma not having achieved remission C90.00 Multiple myeloma remission status: not in remission Anemia, unspecified type D64.9 Anemia type: unspecified type Chronic deep vein thrombosis (DVT) of other vein of both lower extremities I82.593 DVT location: lower extremity Affected thrombotic vein of extremity: other lower extremity vein Chronicity: chronic Laterality: bilateral Assessment and Plan Assessment and Plan (1) Multiple myeloma: Status: Chronic Qualifiers: Multiple myeloma remission status: not in remission Qualified Code(s): C90.00 - Multiple myeloma not having achieved remission (2) Anemia: Status: Chronic Qualifiers: Anemia type: unspecified type Qualified Code(s): D64.9 - Anemia, unspecified (3) DVT (deep venous thrombosis): Status: Chronic Qualifiers: DVT location: lower extremity Affected thrombotic vein of extremity: other lower extremity vein Chronicity: chronic Laterality: bilateral Qualified Code(s): I82.593 - Chronic embolism and thrombosis of other specified deep vein of lower extremity, bilateral Plan 69-year-old gentleman who presented October 2022 with paraplegia urine and stool incontinence due to 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 Work-up consistent with multiple myeloma kappa light chain disease, standard risk myeloma (normal cytogenetics and FISH panel). Patient is status post decompression, radiation therapy and started systemic therapy with daratumumab Revlimid and dexamethasone in February 2023 and achieved partial remission (more than 50% drop in kappa light chain) initial care was in [place] ([facility] for [facility] and [facility] then Dr. Woodall). Transferring care to [facility] June 2023 to be close tohis sister starting maintenance DRd July 2023. His disease went into a very good partial remission with M protein no longer detected by October 2023. Revlimid holiday started March 2024 and his M protein remained stable Chronic comorbid conditions: Residual paraplegia with urine and stool incontinence (has an indwelling Vanegas's catheter), hypertension, dyslipidemia, hypothyroidism. He has anemia of cancer and anticancer therapy, and developed bilateral lower extremities DVTs complicating malignancy on long-term anticoagulation with Eliquis. Plan: Managed jointly with [facility] Main [place] 1-continue systemic therapy with Dd: daratumumab maintenance (4 weeks intervals ), and dexamethasone 20 mg down to day 1 of each treatment cycle (28 days cycles). Proceed with cycle 26 mazin/dex today. 2. Supportive treatment: Acyclovir for shingles prophylaxis and advised to receive shingles vaccine, Bactrim for PCP prophylaxis (Wednesdays and Fridays). Patient had not seen the dentist for over a year, updated dental clearance form requested and received today. Will have nursing enter a prior auth with his insurance and resume Zometa today. 3. Continue long-term anticoagulant treatment for bilateral lower extremities DVTs complicated malignancy induced hyper coagulability. Hold anticoagulation for 48 hours prior to any invasive procedure including dental extractions. RTO 04/05/25 for ?cycle 27 mazin/dex Clinical Quality Measures Falls Risk Screening/Assistive Devices Have you fallen in the past year?: No 03/08/25 1438 <Electronically signed by Zayda alexander NP MANAGER BUSINESS-C> Date _ Zayda Hanson NP MANAGER BUSINESS-C Cosigner Signature: Date (if applicable) CC: ~ [facility] [employer] Work Phone: 1(819) 482-434805-08-2025 Telephone encounter Note* Telephone Encounter - Mike Ceballos - 02/01/2025 3:46 PM EDT [facility] requested records from this patient's last office visit with Dr. Souza and last renal US. [facility] . Records were faxed 02/01/25 and scanned in. Mike Ceballos [facility]05-08-2025 Miscellaneous Notes* Telephone Encounter - Mike Ceballos - 02/01/2025 3:46 PM EDT [facility] requested records from this patient's last office visit with Dr. Souza and last renal US. [facility] . Records were faxed 02/01/25 and scanned in. Mike Ceballos [facility] Evaluation note* Diagnosis Onset Date Resolution Status Admit Date Anemia chronic February 01, 2025 12:37pm DVT (deep venous thrombosis) chronic February 01, 2025 12:37pm Multiple myeloma chronic February 01, 2025 12:37pm Anemia chronic March 08 1:06pm DVT (deep venous thrombosis) chronic March 08, 2025 1:06pm Multiple myeloma chronic February 1:06pm Anemia chronic April 05 12:26pm DVT (deep venous thrombosis) chronic April 05, 2025 12:26pm Multiple myeloma chronic March 12:26pm Anemia chronic May 02 1:13pm DVT (deep venous thrombosis) chronic May 02, 2025 1:13pm Multiple myeloma chronic May 022024 1:13pm [facility] Work Phone: 1(275) 943-204505-08-2025 Evaluation note* Diagnosis Onset Date Resolution Status Admit Date Anemia chronic February 01, 2025 12:37pm DVT (deep venous thrombosis) chronic February 01, 2025 12:37pm Multiple myeloma chronic February 01, 2025 12:37pm Anemia chronic March 08 1:06pm DVT (deep venous thrombosis) chronic March 08, 2025 1:06pm Multiple myeloma chronic February 1:06pm Anemia chronic April 05 12:26pm DVT (deep venous thrombosis) chronic April 05, 2025 12:26pm Multiple myeloma chronic March 12:26pm Anemia chronic May 02 1:13pm DVT (deep venous thrombosis) chronic May 02, 2025 1:13pm Multiple myeloma chronic May 022024 1:13pm Open wound of tissue overlyi ng spine acute May 10 1:27pm [facility] Work Phone: 1(634) 759-795505-07-2025 Radiology Diagnostic study note [facility] Imaging Services [address] [place], [place] [id number] Abdomen/Pelvis W IV Cont ONLY MR#: [id number] Acct: [id number] Name: ARMAND BARRON LEAH Rep #: [id number] : 1955 M 69 From: Sammie Sharma MD PCP: Dr. Blade Milner, DO Status: REG ER Study:Abdomen/Pelvis W IV Cont ONLY Date of E xam: 01/31/25 Exam# [id number] Ordering Dr: Martha Newman DO PROCEDURE: CT ABDOMEN/PELVIS w IV CONT ONLY 01/31/2025 REASON FOR EXAM: ABDOMINAL PAIN, BLOATING TECHNIQUE: Abdomen and pelvis CT with intravenous contrast. Contiguous axial scans of 3.75 mm slice thicknesses. Sagittal and coronal reconstruction images were obtained. One or more dose reduction techniques were used (e.g., automated exposure control, adjustment of mAand/or kv according to patient size, use of [...] disease of the aortoiliac arteries. Marked tortuosity ofthe iliac arteries. Peritoneum / Retroperitoneum: No free [...] Other nonacute findings detailed above. Reading Location: SRIRAM CC: Dr. Marleni Newman DO; Dr. Blade Milner DO ~ Residential Property Manager: Signed [facility]04-11-2025 Radiology Diagnostic study note [facility] Imaging Services [address] [place] [id number] Abdomen Single View MR#: [id number] Acct: [id number] Name: ARMAND BARRONN Rep #: [id number] : 1955 M 69 From: Jamin Garnica MD PCP: Dr. Blade Milner DO Status: REG CLI Study:Abdomen Single View Date of Exam: 01/04/25 Exam# [id number] Ordering Dr: Zayda Mtz NP, NP-Herve PROCEDURE: ABDOMEN SINGLE VIEW 01/04/2025 REASON FOR EXAM: ABD BLOATING TECHNIQUE: Single view abdomen. COMPARISON: None available FINDINGS: Bowel gas: Nonobstructive bowel gas pattern Calcifications: None Bones: Degenerative changes within the lower lumbar spine. Lucency within the proximal right femur,nonspecific. Calcification seen along the superior aspect of the greater trochanter. Bilateral hip joint space narrowing. Other: None RAD/Abdomen Single View IMPRESSION: Equivocal lucency seen within the proximal right femur, nonspecific. If there is persistent or unexplained right hip pain, further evaluation with CT pelvis would be recommended as clinically indicated. Bilateral hip osteoarthritis. Nonobstructive bowel gas pattern. Reading Location: LEN-LQUOA[facility]-ZI CC: MANAGER BUSINESSJose Hanson; Dr. Blade Milner, DO ~ Residential Property Manager: Matt [facility]04-10-2025 Evaluation note* Diagnosis Onset Date Resolution Status Admit Date Abdominal bloating acute January 04, 2025 1:01pm Anemia chronic January 04 1:01pm DVT (deep venous thrombosis) chronic January 04, 2025 1:01pm Multiple myeloma chronic January 042024 1:01pm Anemia February 01, 2025 12:37pm DVT (deep venous thrombosis) February 01, 2025 12:37pm Multiple myeloma February 01, 2025 12:37pm Anemia chronic March 08 1:06pm DVT (deep venous thrombosis) March 08, 2025 1:06pm Multiple myeloma february 1:06pm Anemia chronic April 05 12:26pm DVT (deep venous thrombosis) April 05, 2025 12:26pm Multiple myeloma march 12:26pm Anemia chronic May 02 1:13pm DVT (deep venous thrombosis) chronic May 02, 2025 1:13pm Multiple myeloma chronic May 022024 1:13pm [employer] Work Phone: 1(800) 774-668903-13-2025 Evaluation note* Diagnosis Onset Date Resolution Status Admit Date Anemia chronic December 07 2:00pm DVT (deep venous thrombosis) chronic December 07, 2024 2:00pm Multiple myeloma chronic December 072024 2:00pm Abdominal bloating acute January 04, 2025 1:01pm Anemia chronic January 04 1:01pm DVT (deep venous thrombosis) chronic January 04, 2025 1:01pm Multiple myeloma chronic January 042024 1:01pm Anemia chronic February 01, 2025 12:37pm DVT (deep venous thrombosis) February 01, 2025 12:37pm Multiple myeloma February 01, 2025 12:37pm Anemia chronic March 08 1:06pm DVT (deep venous thrombosis) chronic March 08, 2025 1:06pm Multiple myeloma february 1:06pm Anemia chronic April 05 12:26pm DVT (deep venous thrombosis) April 05, 2025 12:26pm Multiple myeloma march 12:26pm [facility] Work Phone: [phone] Instructions* Patient Instructions* Ric Souza MD - 11/28/2024 2:49 PM [...] reduce the chance of infection. If you arenot circumcised, pull back the foreskin and wash [...] for two to four weeks and replace itif it becomes discolored, hard, or brittle, or [...] It helps to take a deep breath andtry to relax before you catheterize yourself. Breathe in, then insert or remove the catheter as youslowly let your breath out. What if there [...] you have any questions. [facility] NoteHNO ID: [id number] Author: NIHARIKA HARRISON RN Service: ? Author Type: Registered Nurse Type: Progress Notes Filed: 11/28/2024 14:49 Note Text: Patient in for CIC teaching. Given [facility] CIC patient education sheet. Instructed on proper technique and s/s of infection, cath after trying to void, how to track. Verbalized understanding to all instruction. Patient able to cath self with nurse instruction/assistance. Used 16 senegalese coloplast speedicath soft catheter. Samples given. Blown Film Extrusion Operator offered:Patient declines Niharika Harrison [facility]03-04-2025 History of Present illness Narrative* Niharika Harrison RN - 11/28/2024 2:48 PM EST Patient in for CIC teaching. Given [facility] CIC patient education sheet. Instructed on proper technique and s/s of infection, cath after trying to void, how to track. Verbalized understandingto all instruction. Patient able to cath self with nurse instruction/assistance. Used 16 senegalese coloplast speedicath soft catheter. Samples given. Blown Film Extrusion Operator offered:Patient declines Niharika Harrison RN documented in this [facility]03-04-2025 NoteHNO ID: [id number] Author: RIC SOUZA MD Service: ? Author Type: Physician Type: Procedures Filed: 11/30/2024 14:42 Note Text: CYSTOSCOPY PROCEDURE NOTE: 89408-qlehp/fulg 32397-nlvsj,bx 70742--gpmzo/complex 96334--jdyyh 73976--jzikrhmi cath 42684-fhvaa/dilate BLADDER IRRIGATION, SIMPLE, LAVAG [[id number] Armand Barron is a 69 year old male who presents for cystoscopy. Pt ID verified with patient: yes Procedure verified with patient: yes Procedure confirmed with physician and instructional support technician: yes Special equipment-cystoscope Dx: 1. Benign prostatic [...] Souza See progress note for plans Ric Souza, [facility]03-04-2025 Procedure note* Ric Souza MD - 11/28/2024 1:53 PM ESTProcedure(s): CYSTOSCOPY Pre-Procedure Diagnose(s): Benign prostatic hyperplasia with urinary retention Post-Procedure Diagnose(s): Benign prostatic hyperplasia with urinary retention CYSTOSCOPY PROCEDURE NOTE: 07815-yctre/fulg 76229-uycce,bx 35143--tlwxw/complex 35679--rfkkp 15725--lcawitqm cath 08693-vyhnh/dilate BLADDER IRRIGATION, SIMPLE, LAVAG [[id number] Armand Barron is a 69 year old male who presents for cystoscopy. Pt ID verified with patient: yes Procedure verified with patient: yes Procedure confirmed with physician and instructional support technician: yes Special equipment-cystoscope Dx: 1. Benign prostatic [...] cystoscopy procedure and personnel were discussed with thepatient. The verbal consent was obtained and the [...] progress note for plans Ric Souza MD [facility]03-04-2025 Procedure note* Ric Souza MD - 11/28/2024 1:53 PM ESTProcedure(s): CYSTOSCOPY Pre-Procedure Diagnose(s): Benign prostatic hyperplasia with urinary retention Post-Procedure Diagnose(s): Benign prostatic hyperplasia with urinary retention CYSTOSCOPY PROCEDURE NOTE: 90156-xosjo/fulg 23075-dbdne,bx 84674--mrkov/complex 79776--xikiw 87570--kmamaces cath 50567-sozyv/dilate BLADDER IRRIGATION, SIMPLE, LAVAG [[id number] Armand Barron is a 69 year old male who presents for cystoscopy. Pt ID verified with patient: yes Procedure verified with patient: yes Procedure confirmed with physician and instructional support technician: yes Special equipment-cystoscope Dx: 1. Benign prostatic [...] cystoscopy procedure and personnel were discussed with thepatient. The verbal consent was obtained and the [...] plans Ric Souza MD documented in this encounterT[facility]25 NoteHNO ID: [id number] Author: RIC SOUZA MD Service: ? Author Type: Physician Type: Progress Notes Filed: 11/30/2024 14:42 Note Text: ESTABLISHED PATIENT OFFICE VISIT patient declined bank officer PATIENT INFO: Armand Barron 69 year old [...] 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 Please allow me to [...] done. Patient had been doing therapy at [facility] in [place] and staff noted that his incision began looking erythematous, with copious drainage. He was sent back to [facility] for evaluation by neurosurgery. Went to IR on 12/02 for drain placement and fluid sent for culture, no growth. He remained clinically very stable. Patient discharged to return to [facility] in [place] The patient received a course of 20 [...] catheter replaced on Wednesday. Labs/Radiology/Procedures: November 28, [id number] urethral stricture but ventral erosion of the meatus to shaft; lateral lobes hypertrophy mild just coapting in the midline and prostatic urethra is not long at all and bladder minimal trabeculation but posterior wall swelling is expected with chronic catheter November 10, 2024-renal ultrasound-no hydronephrosis; 5.8 cm left lower pole renal cyst Febrile 2022-CT with IV outside dhzdbwhzgdu-yuirzavb-vvzv renal cyst and Vanegas catheter in place and prostate gland normal size No results found for: "CREAT" No results found for: "PSA" No results found for: "COLOR", "CLARITY", "UGLUC", "UBILI", "UKET", "SPGR", "UHB", "UPH", "UPROT", "UROBILINOGEN", "NITRITES", "LEUKEST" Review of Systems Constitutional: Negative. HENT: Negative. [...] Use Smoking status: N (more content not included)...[facility] 11-28-2024 History of Present illness Narrative* Ric Souza MD - 11/28/2024 1:49 PM EST ESTABLISHED PATIENT OFFICE VISIT patient declined bank officer PATIENT INFO: Armand Barron 69 year old [...] 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 Please allow me to [...] done. Patient had been doing therapy at [facility] in [place] and staff noted that his incision began looking erythematous, with copious drainage. He was sent back to [facility] for evaluation by neurosurgery. Went to IR on 12/02 for drain placement and fluid sent for culture, no growth. He remained clinically very stable. Patient discharged to return to [facility] in [place] The patient received a course of 20 [...] last dose was on injection on 08/17. Hehas been off revlimid since March. He feels the weakness in his legs are getting better. He is now walking more. on eliquis. He still has a urinary catheter. He denies hematuria. He had a catheter replaced on Wednesday. Labs/Radiology/Procedures: November 28, [id number] urethral stricture but ventral erosion of the meatus to shaft; lateral lobes hypertrophy mild just coapting in the midline and prostatic urethra is not long at all and bladder minimal trabeculation but posterior wall swelling is expected with chronic catheter November 10, 2024-renal ultrasound-no hydronephrosis; 5.8 cm left lower pole renal cyst Febrile 2022-CT with IV outside gvcxosgvvcl-lceibaht-qfbx renal cyst and Vanegas catheter in placeand prostate gland normal size No results found for: "CREAT" No results found for: "PSA" No results found for: "COLOR", "CLARITY", "UGLUC", "UBILI", "UKET", "SPGR", "UHB", "UPH", "UPROT", "UROBILINOGEN", "NITRITES", "LEUKEST" Review of Systems Constitutional: Negative. HENT: Negative. [...] did tell the patient about various alternatives andwhy cystoscopy was indicated in this particular circumstance. [...] APPLICATOR - CATHETER ORDER FOR HOME - US KIDNEY/BLADDER - CYSTO.PANENDO - INSERT,NON-INDW BLADDER CATH 2. Neurogenic bladder - ICD9: 596.54, ICD10: N31.9 Ric Souza The sensitive exam: The sensitive examination was discussed with the Patient or Patient's Authorized Media Producer. Asapplicable, any other physician, advance practice provider, medical student, or other health professional student that will be observing or involved in the sensitive examination for educational or training purposes was discussed with the Patient or Authorized Media Producer. The Patient or Authorized Media Producer has agreed to proceed with the sensitive examination. (Sensitive examination includes inspection and/or palpation of the breasts, pelvis, prostate and anorectal regions) Please note: This note has been produced using speech recognition software and may contain errors related to that system including grammar, punctuation, spelling, gender and words and phrases that may be inappropriate. documented in this encounterTogus [facility] Center02-14-2025 History of Present illness Narrative* Cecy Paige, [facility] - 11/10/2024 2:30 PM EST Radiology Service Progress Note PATIENT NAME: Armand Barron DATE OF SERVICE: November 10, 2024 TIME: 3:00 PM PATIENT IDENTITY VERIFICATION COMPLETED USING TWO (2) IDENTIFIERS: Name and Date of confirmedby patient verbally. FALL SCREENING: Has the patient had 2 falls in the last year or 1 fall with injury or currently using an Ambulatory Assistive Device (Walker, Cane, Wheelchair, Crutches, etc.)? Yes, Patient High Riskfor Falls What interventions were put in place to prevent falls during this visit? Offered Assistance with Transfers/Clothing, Increased Observations by Caregivers, and Patient Refused Interventions/Assistance PATIENT GENDER DATA: Assigned male at PATIENT RELEVANT IMPLANT DATA REVIEWED: Not Applicable PATIENT PRESENTS WITH AN IMPLANTABLE OR ATTACHED BAIT MAKER: No RADIOLOGY DEPARTMENT: Ultrasound PERIPHERAL IV DATA: Not applicable SIGNED BY: Cecy Paige RDMS November 10, 2024 3:00 PM documented in this encounterTogus Va Medical Center02-14-2025 NoteHNO ID: [id number] Author: CECY PAIGE RDMS Service: ? Author Type: Plumber Gasfitter Type: Progress Notes Filed: 11/10/2024 15:01 Note [...] PATIENT PRESENTS WITH AN IMPLANTABLE OR ATTACHED BAIT MAKER: No RADIOLOGY DEPARTMENT: Ultrasound PERIPHERAL IV DATA: Not applicable SIGNED BY: Cecy Paige RDMS November 10, 2024 3:00 [facility]02-14-2025 Instructions* Patient Instructions* Ric Souza MD - 11/10/2024 10:13 AM EST INSTRUCTIONS FROM DR. SOUZA: Do the ultrasound of the kidney PATIENT INFORMATION: Cystoscopy is a test that uses a thin, lighted tube called a cystoscope to see the inside of the bladder and the urethra (the tube that carries urine out of the body). The doctor can use the scope tolook for bladder stones, tumors, bleeding, and sources [...] problems. Your doctor may be able to tellyou some of the results right after the [...] increased risk for developing an infection (a 2- 3% risk). Cystoscopy is usually done in the office with a local anesthetic that is instilled directly into your urethra. There is perhaps some temporary discomfort with urination after the test. documented in this encounterTogus Va Medical Center02-14-2025 NoteHNO ID: [id number] Author: RIC SOUZA MD Service: ? Author Type: Physician Type: Progress Notes Filed: 11/16/2024 10:16 Note Text: NEW PATIENT HISTORY AND PHYSICAL EXAM patient declined bank officer PATIENT INFO: Armand Barron 69 year old [...] 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 Please allow me to [...] done. Patient had been doing therapy at [facility] in [place] and staff noted that his incision began looking erythematous, with copious drainage. He was sent back to [facility] for evaluation by neurosurgery. Went to IR on 12/02 for drain placement and fluid sent for culture, no growth. He remained clinically very stable. Patient discharged to return to [facility] in [place] The patient received a course of 20 [...] Labs/Radiology/Procedures: Febrile 14 2022-CT with IV outside nhvxrghvvwb-sgitfqnk-pgac renal cyst and Vanegas catheter in place and prostate gland normal size No results found for: "CREAT" No results found for: "PSA" No results found for: "COLOR", "CLARITY", "UGLUC", "UBILI", "UKET", "SPGR", "UHB", "UPH", "UPROT", "UROBILINOGEN", "NITRITES", "LEUKEST" Review of Systems Constitutional: Negative. HENT: Negative. [...] (LOPRESSOR) 50 mg t (more content not included)...[facility]02-14-2025 History of Present illness Narrative* Ric Souza MD - 11/10/2024 9:51 AM EST NEW PATIENT HISTORY AND PHYSICAL EXAM patient declined bank officer PATIENT INFO: Armand Barron 69 year old [...] 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 Please allow me to [...] done. Patient had been doing therapy at [facility] in [place] and staff noted that his incision began looking erythematous, with copious drainage. He was sent back to [facility] for evaluation by neurosurgery. Went to IR on 12/02 for drain placement and fluid sent for culture, no growth. He remained clinically very stable. Patient discharged to return to [facility] in [place] The patient received a course of 20 [...] last dose was on injection on 08/17. Hehas been off revlimid since March. He feels the weakness in his legs are getting better. He is now walking more. on eliquis. He still has a urinary catheter. He denies hematuria. He had a catheter replaced on Wednesday. Labs/Radiology/Procedures: Febrile 2022-CT with IV outside mvrhbcwenaj-twiuoxvh-sgpk renal cyst and Vanegas catheter in placeand prostate gland normal size No results found for: "CREAT" No results found for: "PSA" No results found for: "COLOR", "CLARITY", "UGLUC", "UBILI", "UKET", "SPGR", "UHB", "UPH", "UPROT", "UROBILINOGEN", "NITRITES", "LEUKEST" Review of Systems Constitutional: Negative. HENT: Negative. [...] discussed with the Patient or Patient's Authorized Media Producer. Asapplicable, any other physician, advance practice provider, medical student, or other health professional student that will be observing or involved in the sensitive examination for educational or training purposes was discussed with the Patient or Authorized Media Producer. The Patient or Authorized Media Producer has agreed to proceed with the sensitive [...] that may be inappropriate. documented in this encounterTogus [facility] Center02-13-2025 Evaluation note* Diagnosis Onset Date Resolution Status Admit Date Anemia chronic November 09, 2024 1:08pm DVT (deep venous thrombosis) chronic November 09, 2024 1:08pm Multiple myeloma chronic November 09, 2024 1:08pm Degenerative disc disease, lumbar noneactive November 21, 2 2:00pm Anemia chronic December 07 2:00pm DVT [...] Multiple myeloma chronic February 01, 2025 12:37pm Anemia chronic March 08 1:06pm DVT (deep venous thrombosis) chronic March 08, 2025 1:06pm Multiple myeloma chronic February 1:06pm [facility] Work Phone: 1(970) 398-638702-06-2025 Evaluation note* Diagnosis Onset Date Resolution Status Admit Date Open wound of tissue overlying spine acute [...] Multiple myeloma chronic February 01, 2025 12:37pm [facility] Work Phone: 1(943) 933-966501-16-2025 Evaluation note* Diagnosis Onset Date Resolution Status [...] 1:01pm Multiple myeloma chronic January 042024 1:01pm [facility] Work Phone: 1([phone]) 808-392001-16-2025 Evaluation note* Diagnosis Onset Date Resolution Status [...] Degenerative disc disease, lumbar noneactive November 21, 2:00pm Anemia chronic December 07 2:00pm DVT [...] Multiple myeloma chronic February 01, 2025 12:37pm [facility] Work Phone: [phone]) 820-881401-10-2025 Miscellaneous Notes* Telephone Encounter - Anupama Rodriguez - 10/06/2024 4:36 PM EST [facility] returned the call, patient has been scheduled for 11/10/2024 at 10:00a.m. with Dr. Souza in [place]. Fang Rodriguez October 06, 2024 4:36 PM * Telephone Encounter - Kira Cummings - 10/06/2024 1:54 PM EST Faxed referral For James Souza For Vanegas care/removal of vanegas (almost 2 years use) LM to [facility] the health care person to call back to schedule Pt is in penitentiary Referral scanned Thanks documented in this encounterTogus [facility] Center01-10-2025 Telephone encounter Note * Telephone Encounter - Anupama Rodriguez - 10/06/2024 4:36 PM EST [facility] returned the call, patient has been scheduled for 11/10/2024 at 10:00a.m. with Dr. Souza in [place]. Fang Michael October 06, 2024 4:36 PM [facility]01-10-[facility] Telephone encounter Note* Telephone Encounter - Kira Cummings - 10/06/2024 1:54 PM EST Faxed referral For James Souza For Vanegas care/removal of vanegas (almost 2 years use) RACHELE Hicks the health care person to call back to schedule Pt is in penitentiary Referral scanned Thanks [facility]12-18-[facility] Evaluation note* Diagnosis Onset Date Resolution Status [...] 1:01pm Multiple myeloma chronic January 042024 1:01pm [facility] Work Phone: 1(449) 980-854412-05-2024 Evaluation note* Diagnosis Onset Date Resolution Status [...] 2:00pm Multiple myeloma chronic December 072024 2:00pm [facility] Work Phone: 1(393) 135-538911-12-2024 [facility] note* Diagnosis Onset Date [...] Degenerative disc disease, lumbar noneactive November 21, 2:00pm [facility] Work Phone: 1([phone]) 784-468509-18-2024 Hospital Discharge instructions* Patient Instructions* Callie Hodge RN - 06/14/2024 1:45 PM EDT Follow-up Appointments with Dr. Munoz Return Appointment in 1 week. Call [place] [facility] at [phone], [facility] at [phone], or [facility] center at [phone]. Follow nutritious diet including, increasing protein to [...] for wound, take as directed. Directions for Assisted: If wound loses suction: Remove snap back [...] diabetics Please call the wound center at [phone] if you are experiencing this. If we are closed and youare unable to reach us in person please go to the ER. [facility] documented in this [facility]09-18[facility] Wound Care Progress Note CHIEF COMPLAINT: Wound [...] (Active) Wound Image 06/14/24 134 Site Assessment Pale;Bug Tussle;Sloughing 06/14/24 1345 Ritika-Wound Assessment Bug Tussle;Scarred 06/14/24 134 Wound Length (cm) 0.5 cm 06/14/24 134 Wound Width (cm) 0.5 cm 06/14/24 134 Wound Surface Area (cm^2) 0.25 cm^2 06/14/24 134 Wound Depth (cm) 1.2 cm 06/14/241344 Wound Volume (cm^3) 0.3 cm^3 06/14/24 134 Wound Healing % 98 06/14/24 134 Drainage Description Serosanguineous 06/14/24 134 Odor None 06/14/24 134 Drainage Amount Moderate 06/14/24 134 Treatments Cleansed 06/14/24 1345 Primary Dressing Mesalt rope;Calcium alginate;Other (Comment) 06/14/24 134 Secondary Dressing 4x4 gauze;ABD 06/14/24 1345 Secured with Medfix tape 06/14/24 134 Periwound Dressing Other 04/26/24 1600 Dressing Status Clean, dry & intact;New dressing 06/14/24 134 Tunneling 1.6 cm 06/14/24 134 Tunneling Clock Position of Wound 10 06/14/24 1345 Wound/Incision 03/22/24 Surgical Back (Active) Wound Image 06/14/24 135 Site Assessment Pale;Sloughing 06/14/24 135 Ritika-Wound Assessment Bug Tussle 06/14/24 135 Wound Length (cm) 0.9 cm 06/14/24 135 Wound Width (cm) 0.8 cm 06/14/241355 Wound Surface Area (cm^2) 0.72 cm^2 06/14/24 135 Wound Depth (cm) 1 cm 06/14/24 135 Wound Volume (cm^3) 0.72 cm^3 06/14/24 135 Wound Healing % -1100 06/14/24 135 Drainage Description Serosanguineous 06/14/24 1356 Odor None 06/14/24 1356 Drainage Amount Moderate [...] implied. Treatment: Please see attached Discharge Instructions [facility]09-09-2024 Hospital Discharge instructions* Patient Instructions* Callie Hodge RN - 06/05/2024 10:30 AM EDT Follow-up Appointments with Dr. Munoz Return Appointment in 1 week. Call [place] [facility] at [phone], [facility] at [phone], or [facility]ound center at [phone]. Follow nutritious diet including, increasing protein to [...] weekly shower or tub bath. Directions for Assisted: If wound loses suction: Remove snap back [...] diabetics Please call the wound center at [phone] if you are experiencing this. If we are closed and youare unable to reach us in person please go to the ER. [facility] documented in this [facility]09-09[facility] Wound Care Progress Note CHIEF COMPLAINT: Wound [...] Assessment Bleeding 06/05/24 1036 Ritika-Wound Assessment Moist ;Bug Tussle;Scarred 06/05/24 1036 Wound Length (cm) 0.7 cm [...] Assessment Bleeding 06/05/24 1045 Ritika-Wound Assessment Moist ;Bug Tussle 06/05/24 1045 Wound Length (cm) 0.9 cm [...] implied. Treatment: Please see attached Discharge Instructions [facility] [id number] History of Present illness Narrative* Mickey Munoz DO - 05/24/2024 1:30 PM EDT Images from the original note were not included. [facility] Wound Care Progress Note CHIEF COMPLAINT: Wound [...] Site Assessment Sloughing;Bleeding 05/24/24 1324 Ritika-Wound Assessment Bug Tussle 05/24/24 1324 Wound Length (cm) 1 cm [...] see attached Discharge Instructions documented in this [facility]08-28-2024 Hospital Discharge instructions* Patient Instructions* Callie Hodge RN - 05/24/2024 1:30 PM EDT Follow-up Appointments with Dr. Munoz Return Appointment in 1 week. Call [place] [facility] at [phone], [facility] at [phone], or [facility]ound center at [phone]. Follow nutritious diet including, increasing protein to [...] weekly shower or tub bath. Directions for Assisted: If wound loses suction: Remove snap back [...] diabetics Please call the wound center at [phone] if you are experiencing this. If we are closed and youare unable to reach us in person please go to the ER. [facility] documented in this [facility]08-28[facility] Wound Care Progress Note CHIEF COMPLAINT: Wound [...] 05/24/24 1322 Wound Healing % 97 05/24/24 132 Drainage Description Sanguineous 05/24/24 1322 Odor None [...] Site Assessment Sloughing;Bleeding 05/24/24 1324 Ritika-Wound Assessment Bug Tussle 05/24/24 1324 Wound Length (cm) 1 cm [...] made or implied. Treatment: (more content not included)...[facility] [id number] History of Present illness Narrative* Mickey Munoz DO - 05/17/2024 12:45 PM EDT Images from the original note were not included. [facility] Wound Care Progress Note CHIEF COMPLAINT: [...] Site Assessment Bleeding;Granulation;Red 05/17/24 1323 Ritika-Wound Assessment Intact;Bug Tussle 05/17/24 1323 Wound Length (cm) 0.9 cm [...] Site Assessment Bleeding;Granulation;Red 05/17/24 1326 Ritika-Wound Assessment Intact;Bug Tussle 05/17/24 1326 Wound Length (cm) 0.9 cm [...] see attached Discharge Instructions documented in this [facility]08-21-2024 Hospital Discharge instructions* Patient Instructions* Callie Hodge RN - 05/17/2024 12:45 PM EDT Follow-up Appointments with Dr. Munoz Return Appointment in 1 week. Call [place] [facility] at [phone], [facility] at [phone], or [facility]ound center at [phone]. Follow nutritious diet including, increasing protein to [...] weekly shower or tub bath. Directions for Assisted: If wound loses suction: Remove snap back [...] diabetics Please call the wound center at [phone] if you are experiencing this. If we are closed and youare unable to reach us in person please go to the ER. [facility] documented in this [facility]08-21-2024 Hospital Discharge instructions* Patient Instructions* Callie Hodge RN - 05/17/2024 12:45 PM EDT Follow-up Appointments with Dr. Munoz Return Appointment in 1 week. Call [place] [facility] at [phone], [facility] at [phone], or [facility]ound center at [phone]. Follow nutritious diet including, increasing protein to [...] weekly shower or tub bath. Directions for Assisted: If wound loses suction: Remove snap back [...] diabetics Please call the wound center at [phone] if you are experiencing this. If we are closed and youare unable to reach us in person please go to the ER. [facility] documented in this [facility]08-21-2024 Miscellaneous Notes* Addendum Note - Sherry Stubbs RN - 05/17/2024 12:45 PM EDTEncounter addended by: Sherry Stubbs RN on: 05/24/2024 3:48 PM Actions taken: Charge Capture section accepted documented in this [facility]08-21-2024 Note* Addendum Note - Sherry Stubbs RN - 05/17/2024 12:45 PM EDTEncounter addended by: Sherry Stubbs RN on: 05/24/2024 3:48 PM Actions taken: Charge Capture [id number] Wound Care Progress Note CHIEF COMPLAINT: Wound [...] Site Assessment Bleeding;Granulation;Red 05/17/24 1323 Ritika-Wound Assessment Intact;Bug Tussle 05/17/24 1323 Wound Length (cm) 0.9 cm [...] Site Assessment Bleeding;Granulation;Red 05/17/24 132 Ritika-Wound Assessment Intact;Bug Tussle 05/17/24 1326 Wound Length (cm) 0.9 cm [...] implied. Treatment: Please see attached Discharge Instructions [address]21-2024 NoteEncounter addended by: Sherry Stubbs RN on: 05/24/2024 3:48 PM Actions taken: Charge Capture section [facility]08-12-2024 History of Present illness Narrative* Leanna Osborne, OFFSET PROOF PRESS OPERATOR - MERCHANDISING DIRECTOR - 05/08/2024 10:30 AM EDT Images from the original note were not included. [facility] Wound Care Progress Note CHIEF COMPLAINT: [...] see attached Discharge Instructions documented in this encounterSFostoria City [id number] Hospital Discharge instructions* Patient Instructions* Callie Hodge RN - 05/08/2024 10:30 AM EDT Follow-up Appointments with Dr. Munoz Return Appointment in 1 week. Call [facility] center at [phone], [facility] at [phone], or [facility] center at [phone]. Follow nutritious diet including, increasing protein to [...] weekly shower or tub bath. Directions for Assisted: If wound loses suction: Remove snap back [...] diabetics Please call the wound center at [phone] if you are experiencing this. If we are closed and youare unable to reach us in person please go to the ER. [facility] documented in this [facility]08-12[facility] Wound Care Progress Note CHIEF COMPLAINT: Wound [...] 05/08/24 1037 Site Assessment Granulation;Red;Bleeding 05/08/24 1037 Riitka-Wound Assessment Intact;Excoriated 05/08/24 1037 Wound Length (cm) [...] this encounter. Please see attached Discharge Instructions [facility]08-07-2024 History of Present illness Narrative* Mickey Munoz, DO - 05/03/2024 2:00 PM EDT Images from the original note were not included. [facility] Wound Care Progress Note CHIEF COMPLAINT: [...] (Active) Wound Image 05/03/24 1343 Site Assessment Granulation;Pale;Bug Tussle 05/03/24 1343 Ritika-Wound Assessment Intact;Scarred 05/03/24 1343 [...] see attached Discharge Instructions documented in this [facility]08-07-2024 Hospital Discharge instructions* Patient Instructions* Callie Hodge RN - 05/03/2024 2:00 PM EDT Follow-up Appointments: On Tuesday 05/08 with MERCHANDISING DIRECTOR to change SNAP then follow up with Dr. Munoz the following week. Call [place] [facility] at [phone], [facility] at [phone], or [facility] Wound center at [phone]. Follow nutritious diet including, increasing protein to [...] weekly shower or tub bath. Directions for Assisted: If wound loses suction: Remove snap back [...] diabetics Please call the wound center at [phone] if you are experiencing this. If we are closed and youare unable to reach us in person please go to the ER. [facility] documented in this [facility]08[facility] Wound Care Progress Note CHIEF COMPLAINT: Wound [...] (Active) Wound Image 05/03/24 134 Site Assessment Granulation;Pale;Bug Tussle 05/03/24 134 Ritika-Wound Assessment Intact;Scarred 05/03/24 1343 Wound Length (cm) 0.7 cm 05/03/24 134 Wound Width (cm) 0.5 cm 05/03/24 1343 [...] Wound Surface Area (cm^2) 0.48 cm^2 05/03/24 134 Wound Depth (cm) 1.2 cm 05/03/24 134 Wound Volume (cm^3) 0.576 cm^3 05/03/24 1345 [...] (as specified) Please see attached Discharge Instructions [facility]07-31-2024 History of Present illness Narrative* Mickey Munoz, DO - 04/26/2024 3:15 PM EDT Images from the original note were not included. [facility] Wound Care Progress Note CHIEF COMPLAINT: [...] (HCC) Pt ed, reassurance to pt and it systems engineer, present for entire visit Continue snap. Reviewed [...] see attached Discharge Instructions documented in this [facility]07-31-2024 History of Present illness Narrative* Mickey Munoz DO - 04/26/2024 3:15 PM EDT Images from the original note were not included. [facility] Wound Care Progress Note CHIEF COMPLAINT: [...] (HCC) Pt ed, reassurance to pt and it systems engineer, present for entire visit Continue snap. Reviewed [...] see attached Discharge Instructions documented in this [facility]07-31-2024 Hospital Discharge instructions* Patient Instructions* Callie Hodge RN - 04/26/2024 3:15 PM EDT Follow-up Appointments: [address] Munoz Return Appointment in 1 week. Call [place] [facility] at [phone], [facility] at [phone], or [facility] Wound center at [phone]. Follow nutritious diet including, increasing protein to [...] weekly shower or tub bath. Directions for Assisted: If wound loses suction: Remove snap back [...] diabetics Please call the wound center at [phone] if you are experiencing this. If we are closed and youare unable to reach us in person please go to the ER. [facility] documented in this [facility]07-31-2024 Hospital Discharge instructions* Patient Instructions* Callie Hodge RN - 04/26/2024 3:15 PM EDT Follow-up Appointments: [address] Munoz Return Appointment in 1 week. Call [place] [facility] at [phone], [facility] at [phone], or [facility] Wound center at [phone]. Follow nutritious diet including, increasing protein to [...] weekly shower or tub bath. Directions for Assisted: If wound loses suction: Remove snap back [...] diabetics Please call the wound center at [phone] if you are experiencing this. If we are closed and youare unable to reach us in person please go to the ER. [facility] documented in this [facility]07-31-2024 Miscellaneous Notes* Addendum Note - Sherry Stubbs RN - 04/26/2024 3:15 PM EDTEncounter addended by: Sherry Stubbs RN on: 04/27/2024 10:34 AM Actions taken: Charge Capture section accepted documented in this [facility]07-31-2024 Note* Addendum Note - Sherry Stubbs RN - 04/26/2024 3:15 PM EDTEncounter addended by: Sherry Stubbs RN on: 04/27/2024 10:34 AM Actions taken: Charge [id number] NoteEncounter addended by: Sherry Stubbs RN on: 04/27/2024 10:34 AM Actions taken: Charge [facility] W[facility] Progress Note CHIEF COMPLAINT: Wound [...] (HCC) Pt ed, reassurance to pt and it systems engineer, present for entire visit Continue snap. Reviewed [...] (as specified) Comments: suction (more content not included)...[facility] 04[facility] History of Present illness Narrative* Mickey Munoz DO - 04/19/2024 12:45 PM EDT Images from the original note were not included. [facility] Wound Care Progress Note CHIEF COMPLAINT: Wound [...] (HCC) Pt ed, reassurance to pt and it systems engineer, present for entire visit Continue snap. Reviewed [...] see attached Discharge Instructions documented in this [facility]07-24-2024 Hospital Discharge instructions* Patient Instructions* Callie Hodge RN - 04/19/2024 12:45 PM EDT Follow-up Appointments: [address] Munoz Return Appointment in 1 week. Call [place] [facility] at [phone], [facility] at [phone], or [facility] Wound center at [phone]. Follow nutritious diet including, increasing protein to [...] diabetics Please call the wound center at [phone] if you are experiencing this. If we are closed and youare unable to reach us in person please go to the ER. [facility] documented in this [facility]07[facility] Wound Care Progress Note CHIEF COMPLAINT: Wound [...] Wound Image 04/19/24 1317 Site Assessment Bleeding 04/19/247 Ritika-Wound Assessment Scarred 04/19/24 1317 Wound Length [...] (HCC) Pt ed, reassurance to pt and it systems engineer, present for entire visit Continue snap. Reviewed [...] specified) Please see attached (more content not included)...[facility] 04-11-2024 Hospital Discharge instructions* Patient Instructions* Callie Hodge RN - 04/11/2024 2:30 PM EDT Follow-up Appointments: Return Appointment 2 xs a week. Call [place] [facility] at [phone], [facility] [phone], or [facility]ound center at [phone]. Follow nutritious diet including, increasing protein to [...] diabetics Please call the wound center at [phone] if you are experiencing this. If we are closed and youare unable to reach us in person please go to the ER. [facility] documented in this [facility]07-16-2024 Hospital Discharge instructions* Patient Instructions* Callie Hodge RN - 04/11/2024 2:30 PM EDT Follow-up Appointments: Return Appointment 2 xs a week. Call [place] [facility] at [phone], [facility] [phone], or [facility]ound center at [phone]. Follow nutritious diet including, increasing protein to [...] diabetics Please call the wound center at [phone] if you are experiencing this. If we are closed and youare unable to reach us in person please go to the ER. [facility] documented in this [facility]07-16-2024 Hospital Discharge instructions* Patient Instructions* Callie Hodge RN - 04/11/2024 2:30 PM EDT Follow-up Appointments: Return Appointment 2 xs a week. Call [place] [facility] at [phone], [facility] [phone], or [facility]ound center at [phone]. Follow nutritious diet including, increasing protein to [...] diabetics Please call the wound center at [phone] if you are experiencing this. If we are closed and youare unable to reach us in person please go to the ER. [facility] documented in this [facility]07-16-2024 Miscellaneous Notes* Addendum Note - Sherry Stubbs RN - 04/11/2024 2:30 PM EDTEncounter addended by: Sherry Stubbs RN on: 04/17/2024 2:04 PM Actions taken: Care Teams modified documented in this [address]16-2024 Miscellaneous Notes* Addendum Note - Sherry Stubbs RN - 04/11/2024 2:30 PM EDTEncounter addended by: Sherry Stubbs RN on: 04/17/2024 2:04 PM Actions taken: Care Teams modified * Addendum Note - Callie Hodge RN - 04/11/2024 2:30 PM EDTEncounter addended by: Callie Hodge RN on: 04/18/2024 9:33 AM Actions taken: Order list changed, Diagnosis association updated documented in this [address]16-2024 Note* Addendum Note - Sherry Stubbs RN - 04/11/2024 2:30 PM EDTEncounter addended by: Sherry Stubbs RN on: 04/17/2024 2:04 PM Actions taken: Care Teams modified [id number] Note* Addendum Note - Sherry Stubbs RN - 04/11/2024 2:30 PM EDTEncounter addended by: Sherry Stubbs RN on: 04/17/2024 2:04 PM Actions taken: Care Teams modified [id number] Note* Addendum Note - Callie Hodge RN - 04/11/2024 2:30 PM EDTEncounter addended by: Callie Hodge RN on: 04/18/2024 9:33 AM Actions taken: Order list changed, Diagnosis association updated [facility] [id number] NoteEncounter addended by: Sherry Stubbs RN on: 04/17/2024 2:04 PM Actions taken: [facility] Note Encounter addended by: Callie Hodge RN on: 04/18/2024 9:33 AM Actions taken: Order list changed, Diagnosis association [facility] History of Present illness Narrative* Mickey Munoz, DO - 04/05/2024 1:30 PM EDT Images from the original note were not included. [facility] Wound Care Progress Note CHIEF COMPLAINT: [...] Psychiatric: Thought Content: Thought content normal. Wound/Incision 06/26/24 Surgical Neck Posterior;Upper (Active) Wound Image 04/05/24 1341 Site Assessment Painful;Pale;Bug Tussle;Sloughing 04/05/24 1341 Ritika-Wound Assessment Blanchable erythema;Scarred 04/05/24 [...] (Active) Wound Image 04/05/24 1344 Site Assessment Bleeding;Bug Tussle 04/05/24 1344 Ritika-Wound Assessment Scarred 04/05/24 1344 [...] (HCC) Pt ed, reassurance to pt and it systems engineer, present for entire visit Snap has been [...] see attached Discharge Instructions documented in this [facility]07-10-2024 Hospital Discharge instructions* Patient Instructions* Sherry Stubbs RN - 04/05/2024 1:30 PM EDT Follow-up Appointments: Return Appointment 2 xs a week. Call [place] [facility] at [phone], [facility] [phone], or [facility] Wound center at [phone]. Follow nutritious diet including, increasing protein to [...] diabetics Please call the wound center at [phone] if you are experiencing this. If we are closed and youare unable to reach us in person please go to the ER. [facility] documented in this [facility]07-10[facility] Wound Care Progress Note CHIEF COMPLAINT: Wound [...] (Active) Wound Image 04/05/24 1341 Site Assessment Painful;Pale;Bug Tussle;Sloughing 04/05/24 1341 Ritika-Wound Assessment Blanchable erythema;Scarred 04/05/24 [...] (Active) Wound Image 04/05/24 1344 Site Assessment Bleeding;Bug Tussle 04/05/24 1344 Ritika-Wound Assessment Scarred 04/05/24 1344 [...] (HCC) Pt ed, reassurance to pt and it systems engineer, present for entire visit Snap has been [...] this encounter. Please see attached Discharge Instructions [facility] [id number] History of Present illness Narrative* Mickey Munoz DO - 03/29/2024 1:30 PM EDT Images from the original note were not included. [facility] Wound Care Progress Note CHIEF COMPLAINT: [...] (Active) Wound Image 03/29/24 1342 Site Assessment Pale;Bug Tussle;Sloughing 03/29/24 1342 Ritika-Wound Assessment Bug Tussle;Scarred 03/29/24 1342 Wound Length (cm) 0.9 cm [...] (HCC) Pt ed, reassurance to pt and it systems engineer, present for entire visit Continue mesalt to [...] see attached Discharge Instructions documented in this [facility]07-03-2024 Hospital Discharge instructions* Patient Instructions* Cassidy Bowen RN - 03/29/2024 1:30 PM EDT Follow-up Appointments: Return Appointment in 1 week. Call [place] [facility] at [phone], [facility] at [phone], or [facility] Wound center at [phone]. Follow nutritious diet including, increasing protein to [...] diabetics Please call the wound center at [phone] if you are experiencing this. If we are closed and youare unable to reach us in person please go to the ER. Wound Center will apply for SNAP vac through insurance for approval If approved, it will begin at the next wound care appointment [facility] documented in this [facility]07[facility] Wound Care Progress Note CHIEF COMPLAINT: Wound [...] (Active) Wound Image 03/29/24 1342 Site Assessment Pale;Bug Tussle;Sloughing 03/29/24 1342 Ritika-Wound Assessment Bug Tussle;Scarred 03/29/24 1342 Wound Length (cm) 0.9 cm [...] (HCC) Pt ed, reassurance to pt and it systems engineer, present for entire visit Continue mesalt to [...] Medfix tape Please see attached [facility] of Present illness Narrative* Mickey Munoz, DO - 03/22/2024 10:00 AM EDT Images from the original note were not included. [facility] W[facility]STOM[facility] [address] [place] [address] Loc: [phone] Wound Care Visit - New Patient Progress [...] C (98.6 F) Resp 18 Ht 5' 5" (1.651 m) Wt 174 lb (78.9 kg) [...] (Active) Wound Image 03/22/24 1041 Site Assessment Bug Tussle;Pale;Sloughing 03/22/24 1041 Ritika-Wound Assessment Bug Tussle;Scarred 03/22/24 1041 Wound Length (cm) 7.9 cm [...] radiation Pt ed, reassurance to pt and it systems engineer, present for entire visit Mesalt to wounds [...] see attached Discharge Instructions documented in this [facility]06[facility] Hospital Discharge instructions* Patient Instructions* Gracy Tran RN - 03/22/2024 10:00 AM EDT Follow-up Appointments: Return Appointment in 1 week. Call [place] [facility] at [phone], [facility] at [phone], or [facility] Wound center at [phone]. Follow nutritious diet including, increasing protein to [...] diabetics Please call the wound center at [phone] if you are experiencing this. If we are closed and youare unable to reach us in person please go to the ER. 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 Please allow me to [...] calcium 8.6 Repeat blood work on 11/13/2022: [place] 20.8, lambda 0.86, kappa/lambda ratio 24.3 No bone marrow biopsy done. Patient had been doing therapy at [facility] in [place] and staff noted that his incision began looking erythematous, with copious drainage. He was sent back to [facility] for evaluation by neurosurgery. Went to IR on 12/02 for drain placement and fluid sent for culture, no growth. He remained clinically very stable. Patient discharged to return to [facility] in [place] The patient received a course of 20 [...] mouth., Disp: , Rfl: Cholecalciferol 1.25 MG (98546 UT) capsule, Take by mouth., Disp: , [...] (Oral) Resp 16 Ht 1.651 m (5' 5") Wt 78.9 kg (174 lb) SpO2 98% [...] 0.32 (L) 0.83 - 3.57 K/uL Abs [employer] 0.33 0.24 - 0.93 K/uL Abs [...] is unlikely to represent an abscess. 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 Errors may be present despite attempts at proofreading. Please page/call with any questions. [facility] Instructions* Patient Instructions* Gisel Wolf MD - 03/08/2024 11:00 AM EDT Medical team Doctor: Dr. Gisel Wolf Primary RN: Kamila LOPEZ Contact numbers Clinic phone: [phone] Clinic fax: [phone] Plan for today - follow up with Dr conrad - continue daratumumab - ok to take a break off revlimid - follow up in 6 months documented [facility] this [facility] Progress note Author Te Shah [facility] January 14, 2024 5:14pm Note Date/Time January 13, 2024 11: 51am [facility] [address] [place] [address] Progress Note - Wound Care 01/13/24 1151 MR#: [id number] Acct: [id number] Name: ARMAND BARRON Rep #:[id number] 2 : 1955 68 From: Te chavez [...] anaerobic bacteria isolated. Charges/Coding Procedures Integumentary 111xxx-113xx: 02272 Marley subq tissue 20 sq cm/< Physical [...] 01/13/24 10:42 ML 12/30/23 01/13/24 10:54 10:35 WC - Today's Visit Information Type of service Follow-up Visit Follow-up Visit (Physician/MERCHANDISING DIRECTOR (Physician/MERCHANDISING DIRECTOR ) ) Arrival Mode Wheelchair Wheelchair Transfer [...] By Document 12/30/23 11:12 Desktop 12/30/23 11:30 GM Document 01/13/24 11:07 Desktop 01/13/24 11:16 12/30/23 [...] Recorded Date Recorded By Document 12/30/23 11:48 Desktop 12/30/23 11:49 KW Document 01/13/24 11:40 Desktop 01/13/24 11:41 RB 12/30/23 01/13/24 11:48 [...] Condition Stable Ambulatory Status Wheelchair Wheelchair Transportation [place] transport Medication Reconcilliation completed & No No [...] if needed. This note was generated with NephroPlus dictation software. It may contain incorrectwords, spelling, and punctuation that were not noted in checking the note beforesigning. 01/14/241713 <Electronically signed by Te Shah MD> Cosigner Signature (if applicable): CC: ~ Signed [facility] Work Phone: 1(753) 887-165304-04-2024 Progress note Author Te Shah [facility] December 30, 2023 1:01pm Note Date/Time December 30, 2023 12:3 0pm [facility] [address] [place] [address] Progress Note - Wound Care 12/30/23 1219 MR#: [id number] Acct: [id number] Name: ARMAND BARRON LEAH Rep #:[id number] 5 : 1955 68 From: Te chavez [...] Start: 12/30/23 10:54 Freq: Status: Active Protocol: ELSY.LOWEXDelfin Activity Type Activity Date Activity User E-sign Co-sign Detail Recorded Client Recorded Date Recorded By Document 12/30/23 10:54 Desktop 12/30/23 11:07 12/30/23 10:54 - Today's Visit Information Type of service Follow-up Visit (Physician/MERCHANDISING DIRECTOR ) Arrival Mode Wheelchair Transfer Assistance None [...] Recorded Date Recorded By Document 12/30/23 10:54 Splash[employer] 12/30/23 11:07 12/30/23 10:54 Wound Center Nurse [...] Patient Pain Free? 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 Had imaging (x-ray) months ago which did [...] if needed. This note was generated with NephroPlus dictation software. It may contain incorrectwords, spelling, and punctuation that were not noted in checking the note beforesigning. 12/30/23 1301 <Electronically signed by Te Shah MD> Cosigner Signature (if applicable): CC: ~ Signed [facility] Work Phone: 1(101) 406-371103-23-2024 Progress note Author Kofi Barboza [facility] December 17, 2023 11:52pm Note Date/Time December 15, 2023 5:1 6pm [facility] [address] [place] [address] Progress Note - Wound Care 12/15/23 1716 MR#: [id number] Acct: [id number] Name: ARMAND BARRON LEAH Rep #:[id number] : 1955 68 From: Kofi Molina [...] anaerobic bacteria isolated. Charges/Coding Procedures Integumentary 111xxx-113xx: 57314 Marley musc/fascia 20 sq cm/< (ICD-10 - [...] Start: 12/09/23 10:34 Freq: Status: Active Protocol: .LOWEXDelfin Activity Type Activity Date Activity User E-sign Co-sign Detail Recorded Client Recorded Date Recorded By Document 12/09/23 10:34 Desktop 12/09/23 10:36 RB Document 12/15/23 13:22 RB Desktop 12/15/23 13:24 RB 12/09/23 12/15/23 10:34 13:22 - Today's Visit Information Type of service Follow-up Visit Follow-up Visit (Physician/MERCHANDISING DIRECTOR (Physician/MERCHANDISING DIRECTOR ) ) Arrival Mode Ambulatory Wheelchair Transfer [...] Amt Medium (34-66%) Medium (34-66%) -Granulation Quality Bug Tussle Bug Tussle -Slough/Fibrin Yes Yes -Necrosis Amt Medium (34-66%) [...] Amt Medium (34-66%) Medium (34-66%) -Granulation Quality Bug Tussle -Slough/Fibrin Yes -Necrosis Amt Medium (34-66%) Medium [...] Recorded Date Recorded By Document 12/09/23 11:24 GM [id number] 12/09/23 11:28 GM Document 12/15/23 14:04 MW [...] Stable Stable Ambulatory Status Wheelchair Wheelchair Transportation [place] Accompanied by SELF Medication Reconcilliation completed & [...] His initial neck surgery was done at [facility]. Patient will think about surgery. Follow-up 2 weeks. 12/17/23 1771 <Electronically signed by Kofi Barboza MD> Cosigner Signature (if applicable): CC: ~ Signed [facility] Work Phone: [phone]) 380-351903-14-2024 Progress note Author Te Shah [facility] December 09, 2023 12:09pm Note Date/Time December 09, 2023 12: 09pm [facility] [address] [place] [address] Progress Note - Wound Care 12/09/23 1152 MR#: [id number] Acct: [id number] Name: ARMAND BARRON LEAH Rep #:[id number] 5 : 1955 68 From: Te chavez [...] Index (BMI) 27.4 Charges/Coding Procedures Integumentary 111xxx-113xx: 58101 Marley subq tissue 20 sq cm/< Physical [...] Visit Information Type of service Follow-up Visit (Physician/MERCHANDISING DIRECTOR ) Arrival Mode Ambulatory Transfer Assistance None [...] Attached -Granulation Amt Medium (34-66%) -Granulation Quality Bug Tussle -Slough/Fibrin Yes -Necrosis Amt Medium (34-66%) -Necrotic [...] Recorded Date Recorded By Document 12/09/23 11:24 [id number] 12/09/23 11:28 12/09/23 11:24 Wound Center Nurse [...] 3 weeks. This note was generated with NephroPlus dictation software. It may contain incorrectwords, spelling, and punctuation that were not noted in checking the note beforesigning. 12/09/23 1205 <Electronically signed by Te Shah MD> Cosigner Signature (if applicable): CC: ~ Signed [facility] Work Phone: 1(679) 406-296702-29-2024 Progress note Author Te Shah [facility] November 25, 2023 11:39am Note Date/Time November 25, 2023 11:34am [facility] [address] [place] [address] Progress Note - Wound Care 11/25/23 1104 MR#: [id number] Acct: [id number] Name: ARMAND BARRON LEAH Rep #:[id number] : 1955 68 From: Te chavez [...] 60 16 106/56 L Room Air 11/25/23 10:11/25/23 10:11/25/23 10:11/25/23 10:11/25/23 10:28 Oxygen Delivery Method Room Air Weight: 165 lb Body Mass Index (BMI) 27.4 Charges/Coding Procedures Integumentary 111xxx-113xx: 44776 Marley subq tissue 20 sq cm/< Physical [...] Start: 10/28/23 10:49 Freq: Status: Active Protocol: ELSY.RENETTA Activity Type Activity Date Activity User E-sign Co-sign Detail Recorded Client Recorded Date Recorded By Document 10/28/23 10:49 MatternetF Desktop 10/28/23 10:56 BMF Document 11/11/23 10:30 MatternetF Desktop 11/11/23 10:38 BMF Document 11/25/23 10:28 Matternet Desktop 11/25/23 10:34 BMF 10/28/23 11/11/23 11/25/23 10:49 10:30 10:28 WC - Today's Visit Information Type of service Follow-up Visit Follow-up Visit Follow-up Visit (Physician/MERCHANDISING DIRECTOR (Physician/MERCHANDISING DIRECTOR (Physician/MERCHANDISING DIRECTOR ) ) ) Arrival Mode Wheelchair Wheelchair [...] Recorded Date Recorded By Document 10/28/23 10:49 Hello Agent Desktop 10/28/23 10:56 Hello Agent Document 11/11/23 10:30 Hello Agent Desktop 11/11/23 10:38 Hello Agent Document 11/25/23 10:28 Hello Agent Desktop 11/25/23 10:34 MatternetF 10/28/23 11/11/23 11/25/23 10:49 10:30 10:28 Wound [...] CERVICAL INFERIOR WOUND (SURGICAL) -Time 11:14 10:46 10:41 -Correct Patient Yes Yes Yes [...] SUPERIOR CERIVICAL SPINE (SURGICAL) -Time 11:15 10:46 10:41 -Correct Patient Yes Yes Yes [...] Desktop 10/28/23 11:20 RB Document 11/11/23 11:04 [facility] Desktop 11/11/23 11:06 [facility] Document 11/25/23 10:56 [facility] Desktop 11/25/23 10:57 [facility] [facility] 10/28/23 11/11/23 11/25/23 11:19 11:04 10:56 [...] Summary of Care Provided Yes Facility Type [facility] Care Facility Facility Additional Wound Wound debrided: [...] facility at this time, will refer to [facility] which isthe closest. Fo now, continue Aquacel extra, change daily to twice daily depending on drainage. Continue Ariel twice daily. Vitamin C, D and zinc also recommended, he voiced understanding. His questions were answered and he was advised to let us know if he has any further questions or concerns. Follow-up in 2 weeks per patient preference. This note was generated with NephroPlus dictation software. It may contain incorrectwords, spelling, and punctuation that were not noted in checking the note beforesigning. 11/25/23 1139 <Electronically signed by Te Shah MD> Cosigner Signature (if applicable): CC: ~ Signed [facility] Work Phone: [phone] 132-500302-15-2024 Progress note Author Te Shah [facility] November 11, 2023 12:33pm Note Date/Time November 11, 2023 12:33pm [facility] [address] [place] [address] Progress Note - Wound Care 11/11/23 1230 MR#: [id number] Acct: [id number] Name: ARMAND BARRON LEAH Rep #:[id number] : 1955 68 From: Te chavez [...] Index (BMI) 27.4 Charges/Coding Procedures Integumentary 111xxx-113xx: 83564 Marley subq tissue 20 sq cm/< Debridement [...] Start: 10/28/23 10:49 Freq: Status: Active Protocol: ELSYRenovation Authorities of [place]STACIE Activity Type Activity Date Activity User E-sign Co-sign Detail Recorded Client Recorded Date Recorded By Document 10/28/23 10:49 Hello Agent Desktop 10/28/23 10:56 [employer] Document 11/11/23 10:30 Hello Agent Desktop 11/11/23 10:38 [facility] 10/28/23 11/11/23 10:49 10:30 - Today's Visit Information Type of service Follow-up Visit Follow-up Visit (Physician/MERCHANDISING DIRECTOR (Physician/MERCHANDISING DIRECTOR ) ) Arrival Mode Wheelchair Wheelchair Transfer [...] Recorded Date Recorded By Document 10/28/23 10:49 Hello Agent Desktop 10/28/23 10:56 Hello Agent Document 11/11/23 10:30 Hello Agent Desktop 11/11/23 10:38 Hello Agent 10/28/23 11/11/23 10:49 10:30 Wound Center Nurse [...] Desktop 10/28/23 11:16 GM Document 11/11/23 10:45 Desktop 11/11/23 10:54 GM 10/28/23 11/11/23 11:14 10:45 Wound [...] Desktop 10/28/23 11:20 RB Document 11/11/23 11:04 [facility] Desktop 11/11/23 11:06 [facility] 10/28/23 11/11/23 11:19 11:04 Wound Care Center [...] Stable Ambulatory Status Wheelchair Wheelchair Transportation Private [facility] ecf Medication Reconcilliation completed & No provided to patient/care provider Clinical Summary of Care Provided Yes Facility Type [facility] Care Facility Additional Wound Wound debrided: Upper [...] patient preference. This note was generated with NephroPlus dictation software. It may contain incorrectwords, spelling, and punctuation that were not noted in checking the note beforesigning. 11/11/23 1233 <Electronically signed by Te Shah MD> Cosigner Signature (if applicable): CC: ~ Signed [facility] Work Phone: [phone]) 470-738102-01-2024 Progress note Author Te Shah [facility] October 28, 2023 1:07pm Note Date/Time October 28, 2023 1 1:39am [facility] [address] [place] [address] Progress Note - Wound Care 10/28/23 1134 MR#: [id number] Acct: [id number] Name: ARMAND BARRON LEAH Rep #:[id number] : 1955 68 From: Te chavez [...] Recorded Date Recorded By Document 10/28/23 10:49 [facility] [employer] 10/28/23 10:56 [facility] 10/28/23 10:49 - Today's Visit Information Type of service Follow-up Visit (Physician/MERCHANDISING DIRECTOR ) Arrival Mode Wheelchair Transfer Assistance None [...] Recorded Date Recorded By Document 10/28/23 10:49 [facility] [employer] 10/28/23 10:56 [facility] 10/28/23 10:49 Wound Center Nurse 1 [...] Recorded Date Recorded By Document 10/28/23 11:19 RB Desktop 10/28/23 11:20 RB 10/28/23 11:19 Wound [...] patient preference. This note was generated with World [employer] Beauty Exchangeation software. It may contain incorrectwords, spelling, and punctuation that were not noted in checking the note beforesigning. 10/28/23 1307 <Electronically signed by Te Shah MD> Cosigner Signature (if applicable): CC: ~ Signed [facility] Work Phone: [phone]) 428-438301-18-2024 Progress note Author Te Shah [facility] October 14, 2023 1:24pm Note Date/Time October 14, 2023 1 2:46pm [facility] [address] [place] [address] Progress Note - Wound Care 10/14/23 1246 MR#: [id number] Acct: [id number] Name: ARMAND BARRON Rep #:[id number] 1 : 1955 68 From: Te chavez [...] Index (BMI) 27.4 Charges/Coding Procedures Integumentary 111xxx-113xx: 00005 Marley subq tissue 20 sq cm/< Physical [...] Start: 09/30/23 10:40 Freq: Status: Active Protocol: .LOWSTACIE Activity Type Activity Date Activity User E-sign Co-sign Detail Recorded Client Recorded Date Recorded By Document 09/30/23 10:41 DL Desktop 09/30/23 10:49 DL Document 10/14/23 10:36 [facility] Desktop 10/14/23 10:45 [facility] 09/30/23 10/14/23 10:41 10:36 - Today's Visit Information Type of service Follow-up Visit Follow-up Visit (Physician/MERCHANDISING DIRECTOR (Physician/MERCHANDISING DIRECTOR ) ) Arrival Mode Wheelchair Wheelchair Transfer [...] Desktop 09/30/23 10:49 DL Document 10/14/23 10:36 BM Desktop 10/14/23 10:45 BMF 09/30/23 10/14/23 10:41 [...] Desktop 09/30/23 11:14 Document 10/14/23 11:56 RB [id number] 10/14/23 11:58 RB 09/30/23 10/14/23 11:12 11:56 [...] Stable Ambulatory Status Wheelchair Wheelchair Transportation Private [facility] Medication Reconcilliation completed & Yes No provided [...] patient preference. This note was generated with NephroPlus dictation software. It may contain incorrectwords, spelling, and punctuation that were not noted in checking the note beforesigning. 10/14/23 1324 <Electronically signed by Te Shah MD> Cosigner Signature (if applicable): CC: ~ Signed [facility] Work Phone: [phone]) 619-114901-04-2024 Progress note Author arun Shah [facility] September 30, 2023 11:34am Note Date/Time September 30, 2023 11 :31am [facility] [address] [place] [address] Progress Note - Wound Care 09/30/23 1129 MR#: [id number] Acct: [id number] Name: ARMAND BARRON LEAH Rep #:[id number] 1 : 1955 68 From: Te chavez [...] Index (BMI) 27.4 Charges/Coding Procedures Integumentary 111xxx-113xx: 60696 Marley subq tissue 20 sq cm/< Physical [...] DL Desktop 09/30/23 10:49 DL 09/30/23 10:41 ELSY - Today's Visit Information Type of service Follow-up Visit (Physician/MERCHANDISING DIRECTOR ) Arrival Mode Wheelchair Transfer Assistance None [...] By Document 09/30/23 11:12 Desktop 09/30/23 11:14 09/30/23 11:12 Wound Care [...] to concern for radiation injury, he would verna good candidate for HBO therapy and possibly, [...] patient preference. This note was generated with NephroPlus dictation software. It may contain incorrectwords, spelling, and punctuation that were not noted in checking the note beforesigning. 09/30/23 1134 <Electronically signed by Te Shah MD> Cosigner Signature (if applicable): CC: ~ Signed [facility] Work Phone: [phone]) 968-296512-13-2023 History of Present illness Narrative* Gisel Wolf [...] 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 Please allow me to [...] calcium 8.6 Repeat blood work on 11/13/2022: Woodside 20.8, lambda 0.86, kappa/lambda ratio 24.3 No bone marrow biopsy done. Patient had been doing therapy at [facility] in [place] and staff noted that his incision began looking erythematous, with copious drainage. He was sent back to [facility] for evaluation by neurosurgery. Went to IR on 12/02 for drain placement and fluid sent for culture, no growth. He remained clinically very stable. Patient discharged to return to [facility] in [place] The patient received a course of 20 [...] Since his last visit, he moved to [place] and now follows with Dr Perez. He [...] mouth., Disp: , Rfl: Cholecalciferol 1.25 MG (58648 UT) capsule, Take by mouth., Disp: , [...] (Oral) Resp 18 Ht 1.651 m (5' 5") SpO2 98% BMI 25.79 kg/m Performance status: [...] 0.44 (L) 0.83 - 3.57 K/uL Abs [place] [employer] 0.56 0.24 - 0.93 K/uL Abs [...] is unlikely to represent an abscess. 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 Errors may be present despite attempts at proofreading. Please page/call with any questions. [facility] Instructions* Patient Instructions* Kamila Gregg RN - 09/08/2023 11:00 AM EST Medical team Doctor: Dr. Gisel Wolf Primary RN: Kamila LOPEZ Contact numbers Clinic phone: [phone] Clinic fax: [phone] Plan for today - follow up with Dr conrad - continue daratumumab - if your markers look good, we could stop revlimid - follow up in 6 months Medical team Doctor: Gisel Wolf FREDI: Gissel Pepper Primary RN: Kamila Gregg RN and Susana Winters RN Contact numbers Clinic phone: [phone] Clinic fax: [phone] Medication refills Please allow 1 week for chemotherapy (e.g. Lenalidomide [Revlimid], Pomalidomide [Pomalyst], Cyclophosphamide [Cytoxan]) and pain medication refills (e.g. Morphine, methadone, etc.) MEDICAL RECORDS The Release of Information (MARTINEZ) area is staffed from 8:00 a.m. to 7:00 p.m. and is available for walk in requests from 8:00 a.m. to 4:30 p.m. [facility] is responsible for answering requests for copies of medical records from various requestors such as insurance companies, attorneys, hospitals and patients. Please note it can take up to 2 weeks to complete your request. [phone]; [phone] (fax). Paperwork Please allow 2 weeks to complete disability, FMLA, and insurance paperwork Education We have created a series of patient-oriented talks to discuss what is myeloma, how to follow myeloma treatment response, smoldering myeloma, what is a transplant and who should get it, what is maintenance therapy, and one talk about the Banner Myeloma Initiative. http://www.mmore.org/ImagineMMORE/2014 /index.html, Another nice resource is available from the National Comprehensive Cancer Network (NCCN) at http://www.nccn.org/patients/guidelines/cancers.aspx#myeloma. [facility] is a secure way to get access to your labs online. Once you're online, you may need to send a message to the office to release results so that you can review the results of your blood tests. For non-emergent concerns, please send us a [employer] message but please do your best to describe your issue fully (if it's a symptom for instance, tell us how long you've had it, what makes it better or worse, what you've done for it already) and one of our nurses or nurse practitioners will respond in consultation with me as needed. For questions or concerns regarding [employer] access or technical dificulties, please call [phone] or toll free at . Health maintenance [...] weakens the immune system. documented in this [facility]11-30-2023 Progress note Author Te Shah [facility] August 26, 2023 11:41am Note Date/Time August 26, 2023 11:41am [facility] [address] [place] [address] Progress Note - Wound Care 08/26/23 1136 MR#: [id number] Acct: [id number] Name: ARMAND BARRON LEAH Rep #:[id number] : 1955 68 From: Te chavez MD PCP: Dr. Iraida Balderas MD [facility]: History of Present Illness Date of [...] Index (BMI) 27.4 Charges/Coding Procedures Integumentary 111xxx-113xx: 97627 Marley subq tissue 20 sq cm/< Physical [...] Recorded Date Recorded By Document 08/12/23 09:02 [facility] Desktop 08/12/23 09:17 [facility] Document 08/26/23 10:32 IVAN Laptop 08/26/23 10:47 08/12/23 08/26/23 09:02 10:32 - Today's Visit Information Type of service Follow-up Visit Follow-up Visit (Physician/MERCHANDISING DIRECTOR (Physician/MERCHANDISING DIRECTOR ) ) Arrival Mode Wheelchair Wheelchair Transfer [...] Free? 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 Attorney Cultural/Uatsdin Needs that may affect No Treatment Plan Teaching: Wound Center *Welcome to the Wound Center -Person Taught Patient -Teaching Method Discussion -Response to teaching Verbalize understanding Welcome to the Wound Care Center Cook Islander WC - Nurse 1 - General Ulcer Measurement Start: 08/12/23 09:02 Freq: Status: Active Protocol: Activity Type Activity Date Activity User E-sign Co-sign Detail Recorded Client Recorded Date Recorded By Document 08/12/23 09:02 [facility] Desktop 08/12/23 09:17 [facility] Document 08/26/23 10:32 Laptop 08/26/23 10:47 [...] Desktop 08/12/23 09:54 DL Document 08/26/23 11:32 BM Desktop 08/26/23 11:32 [facility] 08/12/23 08/26/23 09:52 11:32 Wound Care [...] Status Wheelchair Wheelchair Transportation ECF Facility Type [facility] Care [facility] Care Facility Facility Orders Sent Yes Assessment/Plan [...] if needed. This note was generated with NephroPlus dictation software. It may contain incorrectwords, spelling, and punctuation that were not noted in checking the note beforesigning. 08/26/23 1141 <Electronically signed by Te Shah MD> Cosigner Signature (if applicable): CC: ~ Signed [facility] Work Phone: [phone]) 220-231211-16-2023 History and physical note Author Te Shah [facility] August 12, 2023 3:09pm Note Date/Time August 12, 2023 11:52am [facility] [address] [place] [address] H&P Exam - Wound Care 08/12/23 1152 MR#: [id number] Acct: [id number] Name: ARMAND BARRON LEAH Rep #:[id number] : 1955 68 From: Te chavez [...] well otherwise. States that he eats good. [facility] Medical History (Updated 08/12/23 @ 13:02 by [...] Recorded Date Recorded By Document 08/12/23 09:02 [facility] Desktop 11/16/23 09:17 [facility] 08/12/23 09:02 WC - Today's Visit Information Type of service Follow-up Visit (Physician/MERCHANDISING DIRECTOR ) Arrival Mode Wheelchair Transfer Assistance None [...] Pain Free? Yes Communication Assessment Preferred language Cook Islander Hot Box Checker Required No Able to Read Yes Able [...] Status Never smoker Is Patient Diabetic No Culture/Uatsdin/Transactional Attorney Cultural/Uatsdin Needs that may affect No Treatment Plan [...] Recorded Date Recorded By Document 08/12/23 09:02 [facility] Desktop 08/12/23 09:17 [facility] 08/12/23 09:02 Wound Center Nurse 1 [...] Condition Stable Ambulatory Status Wheelchair Facility Type Junior Programmer Care Facility Orders Sent Yes Additional Wound [...] Charges/Coding Visit Charges Office Visits / Consults: 04631 OV L4 New Procedures Integumentary 111xxx-113xx: 70330 Marley subq tissue 20 sq cm/< Assessment/Plan [...] if needed. This note was generated with NephroPlus dictation software. It may contain incorrectwords, spelling, and punctuation that were not noted in checking the note beforesigning. 08/12/23 1509 <Electronically signed by Te Shah MD> Cosigner Signature (if applicable): CC: ~ Signed [facility] Work Phone: [phone]) 111-121107-19-2023 History of Present illness Narrative* Gisel Wolf MD - 04/14/2023 11:40 AM EDT Images from the original note were not included. Attending physician: Gisel Wolf MD Referring physician: MD Salena Way My recommendations will become communicated to the referring physician via electronic medical chartor through US mail. CHIEF COMPLAINT: [facility] MM HISTORY OF PRESENT ILLNESS: Armand Barron is a 67 y.o. male who presents to the 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 Please allow me to [...] calcium 8.6 Repeat blood work on 11/13/2022: Woodside 20.8, lambda 0.86, kappa/lambda ratio 24.3 No bone marrow biopsy done. Patient had been doing therapy at [facility] in [place] and staff noted that his incision began looking erythematous, with copious drainage. He was sent back to [facility] for evaluation by neurosurgery. Went to IR on 12/02 for drain placement and fluid sent for culture, no growth. He remained clinically very stable. Patient discharged to return to [facility] in [place] The patient received a course of 20 [...] mouth., Disp: , Rfl: Cholecalciferol 1.25 MG (23166 UT) capsule, Take by mouth., Disp: , [...] 0.53 (L) 0.83 - 3.57 K/uL Abs [place] [employer] 0.30 0.24 - 0.93 K/uL Abs [...] is unlikely to represent an abscess. 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 documented in this encounterU [facility]07-[facility] Instructions* Patient Instructions* Kamila Gregg RN - 04/14/2023 11:40 AM EDT Medical team Doctor: Dr. Gisel Wolf Primary RN: Kamila LOPEZ Contact numbers Clinic phone: [phone] Clinic fax: [phone] Plan for today - follow up with Dr Addison - continue daratumumab - continue revlimid - follow up in 5 months Our Clinic is Moving!! In the coming months (currently set for April 12, but may change), our clinic will be moving to the 6th floor of [facility] ([address], [place] [address]). You will receive a letter and televox [...] Gisel Wolf FREDI: Gissel Pepper Primary RN: Kamila Gregg, RN and Susana Winters RN Contact numbers Clinic phone: [phone] Clinic fax: [phone] Medication refills Please allow 1 week for chemotherapy (e.g. Lenalidomide [Revlimid], Pomalidomide [Pomalyst], Cyclophosphamide [Cytoxan]) and pain medication refills (e.g. Morphine, methadone, etc.) MEDICAL RECORDS The Release of Information (MARTINEZ) area is staffed from 8:00 a.m. to 7:00 p.m. and is available for walk in requests from 8:00 a.m. to 4:30 p.m. [facility] is responsible for answering requests for copies of medical records from various requestors such as insurance companies, attorneys, hospitals and patients. Please note it can take up to 2 weeks to complete your request. [phone]; [phone] (fax). Paperwork Please allow 2 weeks to complete disability, FMLA, and insurance paperwork Education We have created a series of patient-oriented talks to discuss what is myeloma, how to follow myeloma treatment response, smoldering myeloma, what is a transplant and who should get it, what is maintenance therapy, and one talk about the Banner Myeloma Initiative. http://www.mmore.org/ImagineMMORE/2014 /index.html, Another nice resource is available from the National Comprehensive Cancer Network (NCCN) at http://www.nccn.org/patients/guidelines/cancers.aspx#myeloma. [facility] is a secure way to get access to your labs online. Once you're online, you may need to send a message to the office to release results so that you can review the results of your blood tests. For non-emergent concerns, please send us a MyChart message but please do your best to [...] MyChart access or technical dificulties, please call [phone] or toll free at . Health maintenance [...] weakens the immune system. documented in this [facility]05-11-2023 History of Present illness Narrative* Emanuel Guerra MD - 02/04/2023 11:00 AM EDT Images from the original note were not included. RADIATION ONCOLOGY FOLLOW-UP NOTE Patient Name (MRN): Armand Barron ([id number]) Radiation Oncologist: Emanuel Guerra MD : 1955 [...] His history is as follows: -Presented to [facility] on 11/05/22 with tingling in his [...] and foraminotomy; posterior thoracic fusion C7-T4; Pathology: Woodside restricted, plasma cell neoplasm -Developed wound issues; [...] marrow biopsy report 01/29/23 documented in this encounterPunxsutawney Area HospitalDzhxyk99-31-0531 Procedure note* Valery Regalado RN - 01/29/2023 12:55 PM EDT This RN attempted to call report to the pt's receiving facility three times, and the phone rang busy each time [facility] [id number] Procedure note* Valery Regalado RN - 01/29/2023 12:55 PM EDT This RN attempted to call report to the pt's receiving facility three times, and the phone rang busy each time * Nia Knight MD - 01/29/2023 11:51 AM EDT Interventional [...] marrow aspiration and biopsy Performing Provider: Nia Knight MD Staff Role Susana Cruz Cylinder Block Hole Reliner Lori Bates forester silviculture Nurse Nia Knight MD No role selected Anesthesia: Conscious Sedation [...] and is in stable condition. * Nia Knight MD - 01/29/2023 11:21 AM EDT Interventional [...] is available in the patient record. Nia Knight MD documented in this encounterPunxsutawney Area HospitalNufvwt36-51-1945 Procedure note* Nia Knight MD - 01/29/2023 11:51 AM EDT Interventional [...] marrow aspiration and biopsy Performing Provider: Nia Knight MD Staff Role Susana Cruz Cylinder Block Hole Reliner Lori Bates, forester silviculture Nurse Nia Knight MD No role selected Anesthesia: Conscious Sedation [...] or complication and is in stable condition. [employer] Phone: 1(796) 991-436105-05-2023 Procedure note* Nia Knight MD - 01/29/2023 11:21 AM EDT Interventional [...] is available in the patient record. Nia Knight MD [facility] [id number] Miscellaneous Notes* Nursing Notes - Chyna Raymundo RN - 01/06/2023 4:00 PM EDT Risk factors identified:no Physician: Dr. Chad DEE pager # [phone] Peripheral access acceptable for collection: no CVC required for collection: yes Assessed by: Chyna Raymundo RN documented in this encounterU [facility]04-12-[facility] Note* Nursing Notes - Chyna Raymundo RN - 01/06/2023 4:00 PM EDT Risk factors identified:no Physician: Dr. Chad DEE pager # [phone] Peripheral access acceptable for collection: no CVC required for collection: yes Assessed by: Chyna Raymundo RN [facility]04-11-2023 History of Present illness Narrative* Emanuel Guerra MD - 01/05/2023 10:00 AM EDT Images from the original note were not included. RADIATION ONCOLOGY COMPLETION NOTE Patient Name (MRN): Armand Barron ([id number]) Radiation Oncologist: Emanuel Guerra MD : 1955 [...] following up with Dr. Addison at the [facility] and also has been referred to [facility]. I will plan to check back in with him in one month. FOLLOW-UP Patient will return to radiation oncology for follow-up in 1 month. * Mike Horner RD - 01/05/2023 10:00 AM EDTEncounter addended by: Mike Horner RD on: 01/05/2023 3:04 PM Actions taken: Clinical Note Signed * Emanuel Guerra MD - 01/05/2023 10:00 AM EDT Images from the original note were not included. RADIATION ONCOLOGY ON TREATMENT VISIT Patient Name (MRN): Armand Barron ([id number]) Staff Physician: Emanuel Guerra MD : 1955 [...] Follow-up in one month. Has visit at [facility]. Following with Dr. Addison as well. Toxicity [...] he is on a regular diet at [facility] and although he does not like all of the food, he usually eats his entire meal. He is not getting any shakes/protein drinks--but reports that he usually gets a cup of protein-fortified gelatin each AM. ([facility] orders state 30 ml Prosource--assume protein-fortified gelatin is a substitute). He reports he was weighed yesterday at [facility]--156# This represents 12% weight loss in 8 weeks. Plan: Advised pt to request high calorie, high protein drink at [facility] in order to help with healing and prevent further weight loss. (I have left a message for [facility] RDN--awaiting call back) documented in this [facility]04-10-2023 History of Present illness Narrative* Mike Horner RD - 01/04/2023 10:00 AM EDT ONCOLOGY NUTRITION: MST=2--presumed weight loss. (Unable to weight pt in Rad Onc department as he cannot bear weight. Last known actual weight 11/10 was 178#. Subsequent weights have been stated.) Pt has been at [facility] ([phone])--receiving care for non- healing back wound (s/plaminectomy 11/11) Plan: Telephone call to RDApryl (Natalya) at [facility] to coordinate care--left message asking her to call me. documented in this [place] [address]-04-2023 History of Present illness Narrative* Sydnee Monge [...] radiation treatment. Coty currie. documented in this [place] [address]-03-2023 History of Present illness Narrative* Sydnee Monge RN - 12/28/2022 9:42 AM EDT Spoke w/Dr. Guerra re: update on decision for RT. Dr. Guerra would like to have the pt come in rubens evaluation of the wound prior to starting RT. Spoke w/Angeline Cisneros at [facility] and she stated that she did not have transport today but could have the pt at [facility] RT dept tomorrow. Spoke w/Julien Benitez, [facility], and she stated that 12/29/22 at 10:30 would be a good time to have the pt brought in for evaluation. Angeline aware and will make arrangements for the transport. Updated Coty Pool, pt sister, on the above. documented in this encounterPunxsutawney Area HospitalRovyze38-48-1459 History of Present illness Narrative* Sydnee Monge RN - 12/25/2022 9:54 AM EDT Spoke w/Dr. Tao at [facility], re: when to proceed w/RT. Dr. Tao stated that he gets daily reports from [facility] w/details on the wound being 9cm one day and 12cm another day. He stated that he "does not know what this means, nor how they are coming up w/the number". He stated that the pt has been to the hospital for wound management, and is being followed by a wound nurse. [facility]HE[facility] w/Prachi James, nurse applications engineering manager, for update on wound and to see if pt isbeing seen by a wound nurse. 1600: Did not receive any callback from [facility]. Will send to Dr. Guerra for decision on how to proceed. documented in this encounterPunxsutawney Area HospitalOeazgd24-30-6777 History of Present illness Narrative* Sydnee Monge RN - 12/24/2022 8:53 AM EDT Spoke w/Prachi James LPN, Tomy re: pts wound. Prachi stated that when the pts wound was at 9cm on 12/12/22, Dr. Tao had wanted to wait 3 weeks before proceeding w/RT. Now the pts wound is 15-16cm of tunneling. Prachi stated that the SNF is planning on sending the pt [facility] for management of the wound. Call to Dr. Tao's office [phone], and re: wound and update on clearing pt to proceed w/RT. documented in this [facility]03-30-2023 History of Present illness Narrative* Sydnee Monge RN - 12/24/2022 8:26 AM EDT Call to pts sister, Coty Pool, , for a update at pt. Coty stated that pts wound not healing well. Pt had a fall during physicial therpay. Coty stated that the called her and statedthat the pt will be [facility], once they get a referral. Coty is concerned about the wound not healing. Coty asked if a call could be placed to the , Breanne Garcia @ [phone]. w/Breanne for an update on pt. Dr. Guerra updated. documented in this [facility]03-30-2023 History of Present illness Narrative* Sydnee Monge RN - 12/24/2022 8:22 AM EDT Call to pts sister and for an update on pt. documented in this [facility]03-30-2023 History of Present illness Narrative* Sydnee Monge RN - 12/24/2022 8:19 AM EDT Call to Tomy and LM w/danielle Vera, and Prachi James LPN, Wound Nurse, re: update on pts condition and update on wound. Will wait for a callback. Will await a callback. documented in this [facility]03-27-2023 History of Present illness Narrative* Sydnee Monge [...] Guerra on the above. documented in this [place] [address]-27-2023 History of Present illness Narrative* Sydnee Monge [...] decision to Dr. Rodriguez. documented in this [place] [address]-27-2023 History of Present illness Narrative* Sydnee Monge RN - 12/21/2022 2:05 PM EDT Rcvd call from pts sister w/an update on pt's condition. Pt was sent to hospital for re-packing of the wound in the thoracic spine. She wanted to make sure that the pt was not going to "fall through the cracks" in regards to radiation. Call to [facility] and spoke w/Dir Rafa of Nursing. He stated that they have the dressings orders for the pt and to speak w/ the neurosurgeon, Dr. Tao, office for information about clearance for radiation. Call to Dr. Tao's office and spoke w/Lesley [phone]. Reiterated the above and she will message Dr. Tao. Will await a callback. documented in this encounterPunxsutawney Area HospitalXzmjoj21-84-9241 History of Present illness Narrative* Leyla Pedroza [...] 2 Outcome: Adequate for Discharge Problem: PT [facility] Goals Goal: PT LTG 1 Outcome: Adequate for Discharge Goal: PT LTG 2 Outcome: Adequate for Discharge Goal: PT LTG 3 Outcome: Adequate for Discharge Identify possible barriers to meeting goals/advancing plan of care: No barriers identified at this time Stability of the patient: Moderately Stable - Low risk of patient condition declining or worsening End of Shift Summary: Patient discharging, return to [facility]. * Leyla Pedroza RN - 12/19/2022 4:10 PM EDT Patient has a discharge order. Assessment unchanged from previously documented assessment. VS stable. Plan is to return to [facility]. Per MD patient will keep Vanegas at this time. Report called to Mel at [facility], no further questions at this time. Peripheral IV removed with cath intact. Report given to [facility] staff. Care transferred. * Marcela Jha RN - 12/19/2022 9:48 AM EDT 12/19/22 0947 Discharge Planning Final Discharge Disposition Assisted Facility ([facility]) Does the patient need discharge transport arranged? Yes Has discharge transport been arranged? Yes ([facility]) What day is the transport expected? 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 RN and INVESTMENT BANKING MANAGER assisted PT with personal hygiene for pt. Pt placed on bed ortiz with INVESTMENT BANKING MANAGER present upon PT departure. DC: SNF for continued skilled PT to address his strength and fxl deficits in order to promote safety and independence with fxl mobility so he can return to his PLOF and return to living alone/independently Physical Therapy Assessment AM-PAC "6 Clicks" Scoring Form: Unable: 1 A Lot: 2 [...] Staff Made Aware: Yes Comments: RN and INVESTMENT BANKING MANAGER present to assist with placing on bed ortiz Plan Treatment/Interventions: ADL retraining, Functional transfer training, LE strengthening/ROM, Endurance training, Patient/family training, Equipment eval/education, Bed mobility, Gait training, Compensatory technique education, Continued evaluation, Balance training PT Plan: Skilled PT PT Frequency: 5 days per week PT Duration of Sessions: PRN PT Treatments per day: PRN PT Discharge Recommendations: intermediate facility placement (Return to same SNF) Equipment Recommended: Defer to next level of care PT - Evaluation Status: Complete PT Goals: Encounter Problems Encounter Problems (Active) Template: Physical Therapy Problem: PT [facility] Goals Dates: Start: 12/18/22 Goal: PT LTG [...] Miller RN - 12/18/2022 12:57 PM EDT Maxillofacial Surgeon Note: Orientation: alert and oriented to person, place, and time Patient Directives: Patient A&O, no HCPOA / no Living Will Patient Next of Kin / Surrogate Decision Maker is Sibling/s Mj Does the patient want anyone to be contacted?: Yes Insurance provider confirmed from chart: Yes and was correct Confirmed PCP: Salena Flores NP Yes and was correct Pharmacy: [facility] when not in SNF [x] Yes and Confirmed Patient is able to afford medications Living Situation: Patient admitted from: Assisted Facility (SNF): [facility] Patient resides: 2 story home Address confirmed [...] care at SNF Patient was readmitted from: Assisted Facility (SNF): [facility] Social Influencers of Health: Assessments Needed for Discharge: Patient will require therapy assessments and updates Anticipated Needs at Discharge: Admitted: 12/17/2022 SIMIN: 12/18/22 A) Return to [facility] B) Another SNF Barrier to discharge: precert Decision maker: self Pre-cert Needed Yes Pending, started on: 12/18 Transport: Will need Ambulance Case Management Narrative: Updated by attending this morning that patient was cleared to return to [facility] once wound RN is done with wound. [...] order, discharge clinicals and progress note to [facility] for review. Updated them that patient is ready to return. Patient placed on will call with [facility]. 1455: Discussed case with Assembly Line Supervisor Vida Vicente. No OT ordered as patient has dc order and does not need OT. Patient's skilled needs are PT and wound care. Requested facility expedite precert. He will be remaining in OBS status, not admitted as inpatient. PT did work with patient today but session was short due to patient needing to use bed ortiz. Sophia MONROE anesthesiology faculty [phone] or secure chat * Heather Sandoval MD [...] done every Wednesday and Wednesday. Diagnoses: Wound tulsaxuejw-lolu-zf evidence of infection or sepsis History of [...] Discussed with case management Heather Sandoval MD [facility] ([facility]) Subjective: No pain. Having bowel movements. Tolerating [...] -- -- -- -- -- 1.651 m (65") 72.6 kg (160 lb) 12/17/22 1338 125/80 [...] from the original note were not included. [place] Case Management Department [facility] Transportation Request [...] Ambulance Requesting Staff Members Call Back Number: [phone] Requesting Hospital: [facility] [id number] Attending Provider: Armand Jay DO Patient Name: [...] and Other are listed in this list. [facility] - [address], [place] [address] Requested Passenger Booking Clerk Date and Time: TODAY - TIME:1300 Equipment: [...] Procedure Abnormality Status --------- ------ CBC auto differential[[id number]] In process Please view results for these tests on the individual orders. BASIC METABOLIC PANEL CBC WITH AUTO DIFFERENTIAL No orders to display ED COURSE: Vitals: 12/17/22 1338 12/17/22 1339 12/17/22 1400 BP: 125/80 120/73 Pulse: 91 91 Resp: 16 17 Temp: 37.2 C (98.9 F) TempSrc: Oral SpO2: 99% 97% Weight: 72.6 kg (160 lb) Height: 1.651 m (65") Medications - No data to display Clinical [...] Judd MD 12/17/22 1504 documented in this encounterPunxsutawney Area HospitalIrpldp79-28-3076 Hospital course Narrative* Heather Sandoval MD - 12/19/2022 10:45 AM EDT Images from the original note were not included. Discharge Summary Admission Date: 12/17/2022 Discharge Date: 12/19/2022 Admitting Provider: [facility] ([facility]) Primary Care Physician at Discharge: Salena Flores [...] No antibiotics needed. Patient can return to F for wound care and aggressive therapy. Patient [...] on skin please. Discharge Final Diagnosis Wound nmfitsmigz-qgej-jy evidence of infection or sepsis History of [...] Your Medications These medications were sent to [facility]/pharmacy #[id number] [address] Hours: 24-hours senna 8.6 mg tablet You [...] Center 12/21/2022 10:00 AM Ric Rodriguez MD; [facility] RADIATION TREATMENT Radiation Oncology [phone] [facility] 12/22/2022 10:00 AM Ric Rodriguez MD; [facility] RADIATION TREATMENT Radiation Oncology [phone] [facility] 12/23/2022 10:00 AM [facility] RADIATION TREATMENT Radiation Oncology [phone] [facility] 12/24/2022 10:00 AM [facility] RADIATION TREATMENT Radiation Oncology [phone] [facility] 12/25/2022 10:00 AM Ric Rodriguez MD; [facility] RADIATION TREATMENT Radiation Oncology [phone] [facility] 01/28/2023 8:30 AM (Arrive by 8:15 AM) Salena Flores NP Family Medicine [phone] [facility] Post discharge care Destination [facility] Service: Assisted [address] [address] Vitals and Physical Exam Patient Vitals for [...] of care 40 minutes Heather Sandoval MD [facility] ([facility]) * Edyta Quezada RN - 12/18/2022 11:31 [...] tape on skin please. documented in this encounterPunxsutawney Area HospitalFnfbtf42-41-9221 Hospital Discharge instructions* Discharge Instructions* Heather Sandoval [...] tape on skin please. documented in this encounterPunxsutawney Area HospitalIklplv24-79-2914 Consult note* Edyta Quezada RN - 12/18/2022 [...] me from a [facility]. He underwent a surgical procedure to his [...] tx at this time is to every Tue/Wed to remove packing, irrigate with NS and [...] to address his concerns /questions. He relates "just want to be able to walk again." We discussed deconditioning, goals of care, need [...] care and communication. 12/18/2022 11:37 AM EDT Pun[facility] Area HospitalMbwddw36-52-6616 Consult note* Edyta Quezada RN - 12/18/2022 [...] me from a recent previous admission to [facility]3]. He underwent a surgical procedure to his [...] to address his concerns /questions. He relates "just want to be able to walk again." We discussed deconditioning, goals of care, need for turns to relive pressure on his buttocks whichhas a stage 2 PI that I am certain started with MASD. This is being tx with orange top [...] 12/18/2022 11:37 AM EDT documented in this encounterPunxsutawney Area HospitalBepovr66-88-1596 Note* ED Bed Hold Note - Ollie Greene RN - 12/17/2022 4:57 PM EDT Bed: BP-49 Expected date: Expected time: Means of arrival: Comments: Room 17 Pun[facility]awney Area HospitalLznaiu95-32-5440 Miscellaneous Notes* ED Bed Hold Note - Ollie Greene RN - 12/17/2022 4:57 PM EDT Bed: BP-49 Expected date: Expected time: Means of arrival: Comments: Room 17 * ED Bed Hold Note - POPPY GaonaP - 12/17/2022 1:30 PM EDT Bed: CP-17 Expected date: Expected time: Means of arrival: Comments: C.C. documented in this encounterPunxsutawney Area HospitalQaqpde53-84-5073 History and physical note* Armand NascimentotonDO - 12/17/2022 3:38 PM EDT Images from [...] -- -- -- -- -- 1.651 m (65") 72.6 kg (160 lb) 12/17/22 1338 125/80 [...] the hospital for further evaluation. Diagnoses: Wound ssxbfhmdcs-rcnj-xi evidence of infection or sepsis History of multiple myeloma History of hypertension Plan: Admit to [facility] service for observation Home medications Neurosurgery to [...] 24 to 48 hours Armand Jay DO [facility] ([facility]) Punxsutaw[facility] Area HospitalRhiryu46-94-1990 History and physical note* Armand Jay DO [...] -- -- -- -- -- 1.651 m (65") 72.6 kg (160 lb) 12/17/22 1338 125/80 [...] the hospital for further evaluation. Diagnoses: Wound rmwgcsapgo-voqv-so evidence of infection or sepsis History of multiple myeloma History of hypertension Plan: Admit to [facility] service for observation Home medications Neurosurgery to [...] 24 to 48 hours Armand Jay DO [facility] ([facility]) documented in this encounterPunxsutawney Area HospitalNofewe20-19-2446 Note* ED Bed Hold Note - POPPY GaonaP - 12/17/2022 1:30 PM EDT Bed: -17 Expected date: Expected time: Means of arrival: Comments: [place] [address]-17-2023 History of Present illness Narrative* Sydnee Monge RN - 12/11/2022 9:44 AM EDT Spoke w/Angeline at [facility] re: update on pts wound. Angeline will check w/the nurse applications engineering manager. Dr. Guerra stated that depending on the condition of the wound and drainage will determine when pt will start RT. Angeline to call back. documented in this encounterPunxsutawney Area HospitalWwyque16-82-8168 History of Present illness Narrative* Felicia Armijo RN - 12/09/2022 4:07 PM EDT Patient discharged with [facility] at this time. * Felicia Armijo RN - 12/09/2022 3:54 PM EDT [facility] here to transport pt to [facility] at this time. Report and packet with script given to [facility] * Felicia Armijo RN - 12/09/2022 3:45 PM EDT Report called to Miquel at [facility] at this time * Felicia Armijo RN [...] from the original note were not included. [place] Case Management Department [facility] Transportation Request [...] Ambulance Requesting Staff Members Call Back Number: [phone] Requesting Hospital: [facility] [id number] Attending Provider: Marta Mason MD Patient Name: [...] and Other are listed in this list. [facility] - [address], [place] [address] Requested Passenger Booking Clerk Date and Time: TODAY - TIME:1530 Equipment: [...] Post-op Problem Patient had back surgery at [facility]. Facility attempted to take stables out today but felt wound did not appear to be healing appropriately and had a lot of drainage. Patient was advised to come to [facility] not [facility]. Past Medical History: has a past medical [...] Start Ordered 12/02/22 0001 Adult diet [facility]; General; Regular Diet effective now Question Answer Comment Location [facility] Diet Type (req) General General Diet Regular 12/02/22 0001 Food/Nutrition History: [facility] and was eating 75-100% at that time as well CurrentFood/Nutrition Status Intake Type: P.O. Current Diet Status: Appropriate Intake Amount (%): 75-100% Anthropometrics: Ht Readings from Last 1 Encounters: 12/01/22 1.753 m (69") Admit 12/01/22 Weight: 77.1 kg (170 lb) [...] back Fluid Accumulation/Edema: Localized (bilat lower extremity MANAGER BUSINESS edema) Follow Up: Nutrition Priority Level Priority Level: Moderate Follow Up Date: 12/16/22 Signature: Sierra Titus RDN, LD, [facility] [id number] * Sophia Miller RN - 12/09/2022 10:21 AM EDT 12/09/22 1021 Discharge Planning Patient expects to be discharged to: Return to [facility] pending precert Patient remains in precert. Inquired with facility regarding precert status. Updated attending Marta Mason MD of above. Delay in place due to precert. 1430: Precert approved. CM completing discharge planning for patient. Patient will discharge on 12/09/22. Discharge destination is SNF placement at [facility]. Patient will be transported by ambulance; transport scheduled with [facility] on 12/09/22 at [phone], transport packet with hard chart. Discharge plan communicated with patient, family, attending, bedside RN and facility and all are in agreement with discharge plan. CM will remain available to assist with discharge planning needs as needed. Sophia ALDRIDGEN anesthesiology faculty [phone] or secure chat * Ifeanyi Boggs, PT - 12/09/2022 10:09 AM EDT Patient: Armand Barron Age: 67 y.o. Sex: male Infected wound [facility] Physical Therapy Treatment Multi-Disciplinary Rounding Report Ambulation: not ready to ambulate, EOB activities completed this date. PLOF: Level of [place]: Independent with mobility and functional transfers Type of Home: Subacute rehab Prior Function Comments: Independent prior to surgery, working on sitting and sitting balance, transfers at rehab DME Needs: PT Discharge Recommendation: intermediate facility placement Reason for current recommendation based [...] Transfer Comments: no appropriate to stand at thsi time Procedure/Treatment: Therapeutic Activity Therapeutic Activity Time [...] 1 time per day PT Discharge Recommendations: intermediate facility placement Time Spent: PT Time Calculation [...] Contact guard Outcomes Date/Time User Outcome 12/08/22 1129 Swapna Chirions RN Progressing Problem: Transfers Goal: Transfer from bed to chair. Dates: Start: 12/05/22 Expected End: 12/11/22 Description: Goal Type: STG, Performance Level: Contact guard with slide board Outcomes Date/Time User Outcome 12/08/22 1129 Swapna Chirinos RN Progressing Goal: Patient to transfer [...] Tao. Patient had been doing therapy at [facility] in [place] and staff noted that his incision began looking erythematous, with copious drainage. He was sent back to [facility] for evaluation by neurosurgery. Went to IR on 12/02 for drain placement and fluid sent for culture, no growth. He remained clinically very stable. Patient to return[facility] [place], now awaiting precert for discharge. Diagnoses: Postoperative [...] is medically stable for discharge back to [facility] in [place], awaiting pre-CERT. Discussedwith case management. Follow-up with Dr. Tao in 2 months, added to depart at discharge. Dr. Barrett for radiation 12/14 Marat Mason MD [facility] ([facility]) Subjective: Patient endorses feeling okay overall. Still having some abdominal distention and comfort. States he is passing gas. Has not yet had a bowel movement. Denies dizziness, chest pain, shortness of breath, nausea, vomiting. Review of Systems All other systems reviewed and are negative. Vitals and Physical exam: Patient Vitals for the past 24 hrs: BP Temp Temp src Pulse SpO2 03/15/23 0736 95/61 36.8 C (98.2 F) Oral [...] anesthetized with LIDOCAINE. Under CT guidance a 12-Salvadorean pigtail drainage catheter was placed within the collection. 10 mL of serosanguineous fluid was aspirated and sent for analysis. The catheter was sutured to the skin and then attached togravity drainage. PATIENT DISPOSITION: Discharged from the department in stable condition. Impression: Technically successful CT-guided 12-Salvadorean drain placement within postoperative fluid collection in [...] the T2 level, spinal fusion hardware from [id number] T4. A small amount of residual enhancing [...] the T2 level, spinal fusion hardware from [id number] T4. A small amount of residual enhancing [...] Marcello Phillip SALEH and documented in the Scripped system on 12/02/2022 12:31 AM, Message ID [id number]. -------- FINAL REPORT -------- Dictated By: Ricky [...] Marcello Fisher DO and documented in the Scripped system on 12/02/2022 12:31 AM, Message ID [id number]. -------- FINAL REPORT -------- Dictated By: Ricky [...] Tao. Patient had been doing therapy at [facility] in [place] and staff noted that his incision began looking erythematous, with copious drainage. He was sent back to [facility] for evaluation by neurosurgery. Went to IR on 12/02 for drain placement and fluid sent for culture, no growth. He remained clinically very stable. [facility] to [facility] [place], now awaiting pre-CERT for discharge. Diagnoses: Postoperative [...] is medically stable for discharge back to [facility] in [place], awaiting pre-CERT. Discussedwith case management. Follow-up with Dr. Tao in 2 months, added to depart at discharge. Previously, patient lived alone, was working full-time in his job at the [employer] in [place] prior to his diagnosis of multiple myeloma in October 2022. His brother lives in [facility] and is his POA. No spouse or children. I talked to his Sister Coty today. She is very concerned about his follow-up with oncology and radiation oncology. I sent an URBANARA message to Dr. Woodall and also Dr. Guerra, as the patient was supposed to see Dr. Lagunas tomorrow which obviously will be canceled; And the sister wanted to know when radiation can be started. Just heard from Dr. Barrett, they put him preliminarily on their schedule for radiation on Thursday 12/14 Lynda Howard MD [facility] ([facility]) Subjective: Patient is awake and alert, chatty [...] days Lab Units 12/06/22 0513 12/05/22 1024 12/01/224 WBC AUTO K/mcL 5.7 5.3 6.6 TOTAL [...] anesthetized with LIDOCAINE. Under CT guidance a 12-Salvadorean pigtail drainage catheter was placed within the collection. 10 mL of serosanguineous fluid was aspirated and sent for analysis. The catheter was sutured to the skin and then attached togravity drainage. PATIENT DISPOSITION: Discharged from the department in stable condition. Impression: Technically successful CT-guided 12-Salvadorean drain placement within postoperative fluid collection in [...] the T2 level, spinal fusion hardware from [id number] T4. A small amount of residual enhancing [...] the T2 level, spinal fusion hardware from [id number] T4. A small amount of residual enhancing [...] DOCUMENT ONLY finding communicated directly to Marcello Bear DO and documented in the [employer] Actionable Findings system on 12/02/2022 12:31 AM, Message ID [id number]. -------- FINAL REPORT -------- Dictated By: Ricky [...] Marcello Fisher DO and documented in the Scripped system on 12/02/2022 12:31 AM, Message ID [id number]. -------- FINAL REPORT -------- Dictated By: Ricky [...] Planning Patient expects to be discharged to: [facility] pending precert approval Patient remains in precert. Inquired with facility regarding precert status. Updated attending Lynda Howard MD of above. Sophia MONROE anesthesiology faculty [phone] or secure chat * Malissa Claros NP - 12/08/2022 7:09 AM EDT Neurosurgery Brief Note Patient: Armand Barron Room: [facility]/[address] [place] [address] Age: 67 y.o. Attending: Lynda Howard MD [...] site, deborah in place. Established at [facility] and was supposed to start radiation [...] long foam bordered dressing. Please date the dressing." T7 Pathologic Compression Fracture Post Op Fluid [...] discharge Malissa Claros NP Send message via Alibaba with further questions. Neuro Exam: -Alert & orientated x4 -Speech is fluent, clear, able to follow commands -EMOI -Increased sensation on BLE today -BUE 5/5, BLE DF/PF 1/5 * Remedios Ward RN [...] Planning Patient expects to be discharged to: [facility] Does the patient need discharge transport arranged? Yes Has discharge transport been arranged? No Patient with discharge order to SNF today pending precert. Inquired with facility about precert status. 1505: Patient remains in precert for SNF stay to return to [facility]. Received voice message from patient's sister Coty and she would like a call from the attending to get an update of thepatient's plan of care. Updated attending and provided her with the sister's phone number to call. Sophia MONROE anesthesiology faculty [phone] or secure chat * Edyta Rick DO - 12/07/2022 9:34 AM EDT Images from the original note were not included. Progress Note Chief Complaint/Visit Reason: "My incision did not look good and they sent me back to the hospital". Impression: This patient is a 67-year-old male [...] Tao. Patient has been doing therapy at [facility] in [place] and staff noted that his incision began looking erythematous, copious drainage. He was sent back to [facility] for evaluation by neurosurgery. To IR on 12/02 for drain placement and fluid sent for culture, no growth. Wound care team consulted and gave wound care recommendations. Patient remained nontoxic-no fevers, no leukocytosis, wound cultures remained negative, clinically very stable. Patient to return to [facility] in [place], remained medically stable through the weekend awaiting [...] is medically stable for discharge back to [facility] in [place], awaiting pre-CERT. Discussedwith case management. Follow-up with Dr. Tao in 2 months, added to depart at discharge. Previously, patient lived alone, was working full-time in his job at the [employer] in [place] prior to his diagnosis of multiple myeloma in October 2022. His brother lives in [place] and is his POA. No spouse or children. Edyta Rick, DO [facility] ([facility]) Subjective: Patient is again [...] down to the thoracic region, surroundingerythema resolved. Mission have been removed. Drain remains in place [...] anesthetized with LIDOCAINE. Under CT guidance a 12-Salvadorean pigtail drainage catheter was placed within the collection. 10 mL of serosanguineous fluid was aspirated and sent for analysis. The catheter was sutured to the skin and then attached togravity drainage. PATIENT DISPOSITION: Discharged from the department in stable condition. Impression: Technically successful CT-guided 12-Salvadorean drain placement within postoperative fluid collection in [...] the T2 level, spinal fusion hardware from [id number] T4. A small amount of residual enhancing [...] the T2 level, spinal fusion hardware from [id number] T4. A small amount of residual enhancing [...] Marcello Phillip SALEH and documented in the Scripped system on 12/02/2022 12:31 AM, Message ID [id number]. -------- FINAL REPORT -------- Dictated By: Ricky [...] Marcello Fisher DO and documented in the Scripped system on 12/02/2022 12:31 AM, Message ID [id number]. -------- FINAL REPORT -------- Dictated By: Ricky Walters Dictated Date: 12/02/2022 00:09 Assigned Physician: Ricky Walters Reviewed and Electronically Signed By: Ricky Walters Signed Date: 12/02/2022 00:32 Workstation ID: [id number] Transcribed By: Self Edit Transcribed Date: 12/02/2022 00:09 Allergies: No Known Allergies * Angelita Joshi, VIDEOGRAPHER - 12/07/2022 9:27 AM EDT Physical Therapy Patient: Armand Barron Age: 67 y.o. Sex: male Infected wound [facility] Physical Therapy Treatment Multi-Disciplinary Rounding Report Ambulation: Walking Assistance: Not attempted, medical/safety concerns PLOF: Level of [place]: Independent with mobility and functional transfers Type of Home: Subacute rehab Prior Function Comments: Independent prior to surgery, working on sitting and sitting balance, transfers at rehab DME Needs: TBD PT Discharge Recommendation: intermediate facility placement Reason for current recommendation based [...] 1 time per day PT Discharge Recommendations: intermediate facility placement Time Spent: PT Time Calculation [...] Neurosurgery Progress Note Patient: Armand Barron Room: [facility]/[address] [place] [address] Age: 67 y.o. Attending: Edyta Rick DO [...] site, deborah in place. Established at [facility] and was supposed to start radiation [...] long foam bordered dressing. Please date the dressing." T7 Pathologic Compression Fracture Post Op Fluid [...] reasons Liliana Esteban NP Send message via Alibaba with further questions. Greater than 25 minutes were spent including face to face interview/education, and chart review including multiple provider notes, diagnostic testing results, and lab review. Greater than 50% of timespent in face to face counseling with patient. SUBSEQUENT ENCOUNTER 04017 Subjective Asleep - easily arousable, no complaints [...] assessed in all extremities BUE grasp/biceps/triceps/deltoid = 01/29 BLE DF 10/01, PF = 10/01 GI: [...] PRN, Blade Palm DO, 650 mg at 12/07/22 0530 amLODIPine (NORVASC) tablet 10 mg, 10 mg, oral, Daily, Blade Palm, DO, 10 mg at 12/06/22 0940 atorvastatin (LIPITOR) tablet 10 mg, 10 mg, oral, Daily, Blade Ascencioles, DO, 10 mg at 12/06/22 0940 ceFAZolin [...] Daily, Blade Palm DO, 88 mcg at 12/06/22 0940 melatonin [...] AC, Blade Palm DO, 40 mg at 12/07/22 0600 prochlorperazine (COMPAZINE) tablet 10 mg, 10 mg, oral, q6h PRN OR prochlorperazine (COMPAZINE)injection 10 mg, 10 mg, intravenous, q6h PRN OR prochlorperazine (COMPAZINE) suppository 25 mg,25 mg, rectal, q12h PRN, Blade Palm DO senna-docusate (PERICOLACE) 8.6-50 mg per tablet 1 tablet, 1 tablet, oral, BID PRN, Blade Palm DO, 1 tablet at 12/05/22 2346 [COMPLETED] Insert peripheral IV, , , Once AND Maintain IV access, , , Until discontinued AND [COMPLETED] Saline lock IV, , , Once AND sodium chloride 0.9 % flush 10 mL, 10 mL, intravenous, BID, 10 mL at 12/06/222056 AND sodium chloride 0.9 % flush 10 mL, 10 mL, intravenous, PRN, Blade Palm, , 10 mL at 12/02/221653 traZODone (DESYREL) tablet [...] not included. Progress Note Chief Complaint/Visit Reason: "My incision did not look good and they sent me back to the hospital". Impression: This patient is a 67-year-old male [...] Tao. Patient has been doing therapy at [facility] in [place] and staff noted that his incision began looking erythematous, copious drainage. He was sent back to [facility] for evaluation by neurosurgery. To IR on 12/02 for drain placement and fluid sent for culture, no growth. Wound care team consulted and gave wound care recommendations. Patient remained nontoxic-no fevers, no leukocytosis, clinically very stable. Patient to return to [facility] in [place], remains inpatient through the weekend awaiting pre-CERT. [...] is medically stable for discharge back to [facility] in [place], awaiting pre-CERT. Discussedwith case management. Follow-up with Dr. Tao in 2 months, added to depart at discharge. Previously, patient lived alone, was working full-time in his job at the [employer] in [place] prior to his diagnosis of multiple myeloma in October 2022. His brother lives in [place] [facility] [place] and is his POA. No spouse or children. Discussed with case management-patient needs help with disability paperwork. Edyta Rick, [facility]) Subjective: Patient is again [...] 12/03/22 0450 12/01/22 2044 SODIUM mmol/L 135* 137 137 137 135* [...] anesthetized with LIDOCAINE. Under CT guidance a 12-Salvadorean pigtail drainage catheter was placed within the collection. 10 mL of serosanguineous fluid was aspirated and sent for analysis. The catheter was sutured to the skin and then attached togravity drainage. PATIENT DISPOSITION: Discharged from the department in stable condition. Impression: Technically successful CT-guided 12-Salvadorean drain placement within postoperative fluid collection in [...] the T2 level, spinal fusion hardware from [id number] T4. A small amount of residual enhancing [...] the T2 level, spinal fusion hardware from [id number] T4. A small amount of residual enhancing [...] Marcello Fisher DO and documented in the Scripped system on 12/02/2022 12:31 AM, Message ID [id number]. -------- FINAL REPORT -------- Dictated By: Ricky [...] Marcello Fisher DO and documented in the Scripped system on 12/02/2022 12:31 AM, Message ID [id number]. -------- FINAL REPORT -------- Dictated By: Ricky Walters Dictated Date: 12/02/2022 00:09 Assigned Physician: Ricky Walters Reviewed and Electronically Signed By: Ricky Walters Signed Date: 12/02/2022 00:32 Workstation ID: [id number] Transcribed By: Self Edit Transcribed Date: 12/02/2022 00:09 Allergies: No Known Allergies * Liliana Esteban NP - 12/06/2022 8:00 AM EDT Neurosurgery Progress Note Patient: Armand Barron Room: [address] [place] [address] Age: 67 y.o. Attending: Edyta Rick DO [...] site, deborah in place. Established at [facility] and was supposed to start radiation [...] long foam bordered dressing. Please date the dressing." T7 Pathologic Compression Fracture Post Op Fluid [...] discharge --Await final Culture results --Return to [facility], requested precert --Okay to discharge from a Neurosurgical perspective, will DC drain the day the patient is leaving (review output) --This hospital visit can serve as 1 month F/U with Dr Tao - would like to follow up in 2 months in office or sooner if indicated --Patient is aware that radiation may be delayed Liliana Esteban NP Send message via Alibaba with further questions. Greater than 25 minutes were spent including face to face interview/education, and chart review including multiple provider notes, diagnostic testing results, and lab review. Greater than 50% of timespent in face to face counseling with patient. SUBSEQUENT ENCOUNTER 39580 Subjective Good spirits. Improved LE movement. Awaits [...] assessed in all extremities BUE grasp/biceps/triceps/deltoid = 5/ BLE DF 10/01, PF = 10/01 GI: Abdomen rounded, BM 12/05 X 4 [...] Blade Palm DO, 10 mg at 12/05/22 08 ceFAZolin (ANCEF) 1 gram/10 mL IV [...] Blade Palm DO, 88 mcg at 12/05/22 08 melatonin tablet 6 mg, 6 mg, oral, Nightly, Blade Palm DO, 6 mg at 12/05/222148 metoprolol tartrate (LOPRESSOR) tablet 50 mg, 50 mg, oral, BID, Blade Palm DO, 50 mg at 149 ondansetron ODT (ZOFRAN-ODT) disintegrating tablet 4 mg, 4 mg, oral, q8h PRN OR ondansetron (PF) (ZOFRAN) injection 4 mg, 4 mg, intravenous, q8h PRN, Blade Palm DO oxyCODONE (ROXICODONE) immediate release tablet 5 mg, 5 mg, oral, q4h PRN, Blade Palm DO, 5 mg at 12/05/222148 pantoprazole (PROTONIX) EC tablet 40 mg, 40 mg, oral, q AM AC, Blade Palm, DO, 40 mg at 12/06/22 0625 prochlorperazine (COMPAZINE) tablet 10 mg, 10 mg, oral, q6h PRN OR prochlorperazine (COMPAZINE)injection 10 mg, 10 mg, intravenous, q6h PRN OR prochlorperazine (COMPAZINE) suppository 25 mg,25 mg, rectal, q12h PRN, Blade Palm DO senna-docusate (PERICOLACE) 8.6-50 mg per tablet 1 tablet, 1 tablet, oral, BID PRN, Blade aPlm, , 1 tablet at 12/05/22 2346 [COMPLETED] Insert peripheral IV, , , Once AND Maintain IV access, , , Until discontinued AND [COMPLETED] Saline lock IV, , , Once AND sodium chloride 0.9 % flush 10 mL, 10 mL, intravenous, BID, 10 mL at 12/05/22 2150 AND sodium chloride 0.9 % flush 10 mL, 10 mL, intravenous, PRN, Blade Ascencioles, DO, 10 mL at 12/02/22 1654 traZODone [...] 9:39 AM EST PT notes sent to [facility] via [employer]. Call [facility] central intake [phone], They confirmed they received the note. * Edyta Mobleymaile, - 12/05/2022 9:08 AM EST Images from the original note were not included. Progress Note Chief Complaint/Visit Reason: "My incision did not look good and they sent me back to the hospital". Impression: This patient is a 67-year-old male [...] Tao. Patient has been doing therapy at [facility] in [place] and staff noted that his incision began looking erythematous, copious drainage. He was [facility] for evaluation by neurosurgery. To IR on 12/02 for drain placement and fluid sent for culture, no growth. Wound care team consulted and gave wound care recommendations. Patient remained nontoxic-no fevers, no leukocytosis, clinically very stable. Patient to return to [facility] in [place], remains inpatient through the weekend awaiting pre-CERT. [...] is medically stable for discharge back to [facility] in [place], awaiting pre-CERT. Discussedwith case management. Previously, patient lived alone, was working full-time in his job at the [employer] in [place] prior to his diagnosis of multiple myeloma in October 2022. His brother lives in [place] and is his POA. No spouse or children. Discussed with case management-patient needs help with disability paperwork. Edyta Rick, DO [facility] Subjective: Patient is again [...] 2139 -- -- -- -- 12 -- 12/04/222036 -- -- -- -- 14 -- 12/04/22 [...] to the thoracic region, erythematous but improved. Mission have been removed. Drain remains in place [...] anesthetized with LIDOCAINE. Under CT guidance a 12-Salvadorean pigtail drainage catheter was placed within the collection. 10 mL of serosanguineous fluid was aspirated and sent for analysis. The catheter was sutured to the skin and then attached togravity drainage. PATIENT DISPOSITION: Discharged from the department in stable condition. Impression: Technically successful CT-guided 12-Salvadorean drain placement within postoperative fluid collection in [...] the T2 level, spinal fusion hardware from [id number] T4. A small amount of residual enhancing [...] the T2 level, spinal fusion hardware from [id number] T4. A small amount of residual enhancing [...] Marcello Fisher DO and documented in the Scripped system on 12/02/2022 12:31 AM, Message ID [id number]. -------- FINAL REPORT -------- Dictated By: Ricky [...] Marcello Fisher DO and documented in the Scripped system on 12/02/2022 12:31 AM, Message ID [id number]. -------- FINAL REPORT -------- Dictated By: Ricky Walters Dictated Date: 12/02/2022 00:09 Assigned Physician: Ricky Walters Reviewed and Electronically Signed By: Ricky Walters Signed Date: 12/02/2022 00:32 Workstation ID: [id number] Transcribed By: Self Edit Transcribed Date: 12/02/2022 00:09 Allergies: No Known Allergies * María Rutherford PT - 12/05/2022 8:20 AM EST Physical Therapy Patient: Armand Barron Age: 67 y.o. Sex: male Infected wound [facility] Physical Therapy Evaluation Multi-Disciplinary Rounding Report Ambulation: Walking Assistance: Not attempted, medical/safety concerns PLOF: Level of [place]: Independent with mobility and functional transfers Type of Home: Subacute rehab Prior Function Comments: Independent prior to surgery, working on sitting and sitting balance, transfers at rehab DME Needs: PT Discharge Recommendation: intermediate facility placement Reason for current recommendation based [...] rehab Prior Function: Prior Function Level of [place]: Independent with mobility and functional transfers Indoor [...] PF 2/5, DF 2-/5 Additional Assessments: AM-PAC "6 Clicks" Scoring Form: Unable: 1 A Lot: 2 [...] 1 time per day PT Discharge Recommendations: intermediate facility placement Encounter Problems Encounter Problems (Active) [...] Education Documentation Spine Precautions, taught by María Rutherford PT at 12/05/2022 [...] Neurosurgery Progress Note Patient: Armand Barron Room: [address] [place] [address] Age: 67 y.o. Attending: Edyta Rick DO [...] site, deborah in place. Established at [facility] and was supposed to start radiation [...] long foam bordered dressing. Please date the dressing." T7 Pathologic Compression Fracture Post Op Fluid [...] Primary Acute/Chronic Medical Issues - Primary and Property Damage Claims Adjustor s to Disposition/Plan --Keep drains - plan to remove @ discharge --Culture finals still pending --Return to [facility], requested precert --Okay to discharge from a Neurosurgical perspective, will DC drain the day the patient is leaving (review output) --Cleared for chemical VTE per Dinh- Dr Rick aware --This hospital visit can serve as 1 month F/U with Dr Tao - would like to follow up in 2 months in office or sooner if indicated Liliana Esteban NP Send message via Alibaba with further questions. Greater than 35 minutes were spent including face to face interview/education, and chart review including multiple provider notes, diagnostic testing results, and lab review. Greater than 50% of timespent in face to face counseling with patient. SUBSEQUENT ENCOUNTER 03276 Subjective Awake alert oriented and cooperative. DF and PF effort now present B/L LE. Rather impatient to return to [facility] to resume Radiation which is scheduled Wednesday. [...] PF = 10/01 GI: Abdomen rounded, BM today - RN [...] PRN, Blade Palm, DO, 650 mg at 12/04/22 1449 amLODIPine (NORVASC) tablet 10 mg, 10 mg, oral, Daily, Blade Palm, DO, 10 mg at 12/04/22 08 atorvastatin (LIPITOR) tablet 10 mg, 10 mg, oral, Daily, Blade Palm, DO, 10 mg at 12/04/22 08 ceFAZolin (ANCEF) 1 gram/10 mL IV syringe 1 g, 1 g, intravenous, q8h, Blade Palm, DO, 1 g at 12/05/22 0038 HYDROmorphone (DILAUDID) injection 0.5 mg, 0.5 mg, intravenous, q3h PRN, Blade Palm, DO, 0.5 mg at 12/02/22 1347 levothyroxine (SYNTHROID, LEVOTHROID) tablet 88 mcg, 88 mcg, oral, Daily, Blade Palm, DO, 88 mcg at 12/04/22 08 melatonin tablet 6 mg, 6 mg, oral, Nightly, Blade Palm, DO, 6 mg at 12/04/222038 metoprolol tartrate (LOPRESSOR) tablet 50 mg, 50 mg, oral, BID, Blade Palm, DO, 50 mg at 9 ondansetron ODT (ZOFRAN-ODT) disintegrating tablet 4 mg, 4 mg, oral, q8h PRN OR ondansetron (PF) (ZOFRAN) injection 4 mg, 4 mg, intravenous, q8h PRN, Blade Palm DO oxyCODONE (ROXICODONE) immediate release tablet 5 mg, 5 mg, oral, q4h PRN, Blade Palm, DO, 5 mg at 12/05/22 0515 pantoprazole (PROTONIX) EC tablet 40 mg, 40 mg, oral, q AM AC, Blade Palm, DO, 40 mg at 12/05/22 0515 prochlorperazine (COMPAZINE) tablet 10 mg, 10 mg, oral, q6h PRN OR prochlorperazine (COMPAZINE)injection 10 mg, 10 mg, intravenous, q6h PRN OR prochlorperazine (COMPAZINE) suppository 25 mg,25 mg, rectal, q12h PRN, Blade Ascencioles, DO senna-docusate (PERICOLACE) 8.6-50 mg per tablet [...] PRN, Blade Palm, DO, 10 mL at 12/02/224 traZODone (DESYREL) tablet 50 mg, 50 mg, oral, Nightly PRN, Blade Ascencioles, DO Radiology/Diagnostics No new imaging for review [...] 0700 to 1501. Callie Castanon RN MSN, [facility]. * Sisi Segovia NP - 12/04/2022 1:14 PM EST Neurosurgery Progress Note Patient: Armand Barron Room: 5N01/1C70-27 Age: 67 y.o. Attending: Edyta Rick DO Date of Service: 12/04/22 Admit: 12/01/2022 PCP: Salena Flores, MANAGER BUSINESS Assessment/Plan Armand Barron is a 67 y/o M who presented 12/01 for evaluation of his incision, S/P C7-T4 posterior fusion by pedicle screw fixation, T2, T7 removal of epidural tumor by laminectomy, facetectomy, foraminotomy by Dr. Tao 11/11/22. He was brought to [facility] for evaluation of his posterior neck incision; concern for infection d/t significant drainage and erythema to the site, deborah in place. He is established at [facility] and was supposed to start radiation [...] the patient for evaluation and management. - "Wound care/dressing changes to mid thoracic surgical wound every 5 days as follows: Remove old dressing and alginate packing from small open area, irrigate the open area with NS, pack the 2 cm deep site of where there was a seroma using the alginate Ag rope packing (in room), cover with a long foam bordered dressing. Please date the dressing." T7 Pathologic Compression Fracture Post Op Fluid [...] to face counseling with patient. Sisi Segovia NP Send message via [employer] with further questions. Subjective The patient states [...] mg, 650 mg, oral, q6h PRN, Blade Price, DO, 650 mg at 12/02/22 1708 amLODIPine (NORVASC) tablet 10 mg, 10 mg, oral, Daily, Blade Price, DO, 10 mg at 12/04/22 0829 atorvastatin (LIPITOR) tablet 10 mg, 10 mg, oral, Daily, Blade Price, DO, 10 mg at 12/04/22 0829 ceFAZolin (ANCEF) 1 gram/10 mL IV syringe 1 g, 1 g, intravenous, q8h, Blade Price, DO, 1 g at 12/04/22 0830 HYDROmorphone (DILAUDID) injection 0.5 mg, 0.5 mg, intravenous, q3h PRN, Blade Palm DO, 0.5 mg at 12/02/22 1347 levothyroxine (SYNTHROID, LEVOTHROID) tablet 88 mcg, 88 mcg, oral, Daily, Blade Palm DO, 88 mcg at 12/04/22 0829 melatonin tablet 6 mg, 6 mg, oral, Nightly, Blade Palm DO, 6 mg at 12/03/227 metoprolol tartrate (LOPRESSOR) tablet 50 mg, 50 mg, oral, BID, Blade Palm DO, 50 mg at 829 ondansetron ODT (ZOFRAN-ODT) disintegrating tablet 4 mg, [...] 10 mL, 10 mL, intravenous, PRN, Blade Price, DO, 10 mL at 12/02/22 1654 sodium chloride 0.9 % infusion - ADS Override Pull, , , , traZODone (DESYREL) tablet 50 mg, 50 mg, oral, Nightly PRN, Blade Price, DO Radiology/Diagnostics Results for orders placed during [...] the T2 level, spinal fusion hardware from M3ztabblh T4. A small amount of residual enhancing [...] the T2 level, spinal fusion hardware from O8aynmjhe T4. A small amount of residual enhancing [...] expects to be discharged [facility]: [facility], requested precert Attending states that patient will be ready over the weekend. Requested that facility escalate precert. Discharge packet started. Patient with questions about disability benefits. Referral sent to Vivian Campos for review and she will contact patient. 1615: Facility attempting to start precert but need PT order placed to have them see. This was completed. Sophia MONROE anesthesiology faculty [phone] or secure chat * Edyta Rick DO - 12/04/2022 9:56 AM EST Images from the original note were not included. Progress Note Chief Complaint/Visit Reason: "My incision did not look good and they sent me back to the hospital". Impression: This patient is a 67-year-old male [...] Tao. Patient has been doing therapy at [facility] in [place] and staff noted that his incision began looking erythematous, copious drainage. He was sent back to [facility] for evaluation by neurosurgery. To IR on [...] Continue Ancef for now. ET RN input appreciated-Mission removed on 12/03 and dressing change recommendations added. PT/OT won, patient would like to go back to [facility] in [place] where he was doing rehab. Changed Vanegas catheter in the ER. Home medications resumed. Diet as tolerated. DVT prophylaxis: SCDs Code Status: Full code. Disposition: EDOD 12/05 to rehab. Awaiting final culture data. Previously, patient lived alone, was working full-time in his job at the [employer] in [employer] prior to his diagnosis of multiple myeloma in October 2022. His brother lives in [facility] and is his POA. No spouse or children. Discussed with case management-patient needs help with disability paperwork. Edyta Rick, [facility] ([facility]) Subjective: Patient is again awake and alert, [...] (98.9 F) Oral 81 14 93 % 12/03/22 2006 111/68 37.2 C (99 F) Oral 68 [...] days Lab Units 12/04/22 0434 12/03/22 0450 12/01/224 SODIUM mmol/L 137 137 135* POTASSIUM mmol/L [...] anesthetized with LIDOCAINE. Under CT guidance a 12-Salvadorean pigtail drainage catheter was placed within the collection. 10 mL of serosanguineous fluid was aspirated and sent for analysis. The catheter was sutured to the skin and then attached togravity drainage. PATIENT DISPOSITION: Discharged from the department in stable condition. Impression: Technically successful CT-guided 12-Salvadorean drain placement within postoperative fluid collection in [...] the T2 level, spinal fusion hardware from P7vguredf T4. A small amount of residual enhancing [...] the T2 level, spinal fusion hardware from T9tvyznzk T4. A small amount of residual enhancing [...] Marcello Fisher DO and documented in the Scri[employer] system on 12/02/2022 12:31 AM, Message ID [id number]. -------- FINAL REPORT -------- Dictated By: Ricky [...] Marcello Fisher DO and documented in the [employer] system on 12/02/2022 12:31 AM, Message ID [id number]. -------- FINAL REPORT -------- Dictated By: Ricky [...] not included. Progress Note Chief Complaint/Visit Reason: "My incision did not look good and they sent me back to the hospital". Impression: This patient is a 67-year-old male [...] Tao. Patient has been doing therapy at [facility] in [place] and staff noted that his incision began looking erythematous, copious drainage. He was sent back to [facility] for evaluation by neurosurgery. To IR on [...] patient would like to go back to [facility] in [place] where he was doing rehab. Changed Vanegas catheter in the ER. Home medications resumed. Diet as tolerated. DVT prophylaxis: SCDs Code Status: Full code. Disposition: To be determined. Patient lives alone, was working full-time in his job at the [employer] in [employer] prior to his diagnosis of multiple myeloma in October 2022. His brother lives in [facility] and is his POA. No spouse or children. Discussed with case management-patient needs help with disability paperwork. Edyta Rick, [facility] ([facility]) Subjective: Patient is awake and [...] 124/72 -- -- 77 -- 94 % 12/02/22 1706 113/64 -- -- -- -- -- 12/02/22 1703 -- -- -- 64 16 92 % [...] anesthetized with LIDOCAINE. Under CT guidance a 12-Salvadorean pigtail drainage catheter was placed within the collection. 10 mL of serosanguineous fluid was aspirated and sent for analysis. The catheter was sutured to the skin and then attached togravity drainage. PATIENT DISPOSITION: Discharged from the department in stable condition. Impression: Technically successful CT-guided 12-Salvadorean drain placement within postoperative fluid collection in [...] the T2 level, spinal fusion hardware from E6bzbchvw T4. A small amount of residual enhancing [...] the T2 level, spinal fusion hardware from Y8zjmahdh T4. A small amount of residual enhancing [...] Marcello Fisher DO and documented in the Scripped system on 12/02/2022 12:31 AM, Message ID [id number]. -------- FINAL REPORT -------- Dictated By: Ricky [...] Marcello Fisher DO and documented in the Scripped system on 12/02/2022 12:31 AM, Message ID [id number]. -------- FINAL REPORT -------- Dictated By: Ricky Walters Dictated Date: 12/02/2022 00:09 Assigned Physician: Ricky Walters Reviewed and Electronically Signed By: Ricky Walters Signed Date: 12/02/2022 00:32 Workstation ID: [id number] Transcribed By: Self Edit Transcribed Date: 12/02/2022 00:09 Allergies: No Known Allergies * Julieta Lin NP - 12/03/2022 10:14 AM EST Neurosurgery Progress Note Patient: Armand Barron Room: [address] [place] [address] Age: 67 y.o. Attending: Edyta Rick DO Date of Service: 12/03/22 Admit: 12/01/2022 PCP: Salena Flores NP Assessment/Plan Armand Barron is a 67 y/o M who presented 12/01 for evaluation of his incision. POD #22 S/P C7-T4 posterior fusion by pedicle screw fixation, T2, T7 removal of epidural tumor by laminectomy, facetectomy, foraminotomy by Dr. Tao 11/11/22. He was brought to [facility] for evaluation of his posterior neck incision; concern for infection d/t significant drainage and erythema to the site, deborah in place.. He is established at [facility] and was supposed to start radiation [...] the patient for evaluation and management. - "Wound care/dressing changes to mid thoracic surgical wound every 5 days as follows: Remove old dressing and alginate packing from small open area, irrigate the open area with NS, pack the 2 cm deep site of where there was a seroma using the alginate Ag rope packing (in room), cover with a long foam bordered dressing. Please date the dressing." T7 Pathologic Compression Fracture Post Op Fluid [...] - ADOD: pending clinical course Julieta Lin NP Send message via Alibaba with further questions. Greater than 40 minutes were spent including face to face interview/education, and chart review including multiple provider notes, diagnostic testing results, and lab review. [address] Subjective Patient states he is feeling well. [...] Pulmonary: Respirations are regular and unlabored Incision: Mission - removed today, alginate dressing Medications Allergies: No Known Allergies Current Medications: Current Facility-Administered Medications: acetaminophen (TYLENOL) tablet 650 mg, 650 mg, oral, q6h PRN, Blade Price, DO, 650 mg at 12/02/22 1708 amLODIPine (NORVASC) tablet 10 mg, 10 mg, oral, Daily, Blade Price, DO, 10 mg at 12/03/22 0915 atorvastatin (LIPITOR) tablet 10 mg, 10 mg, oral, Daily, Blade Price, DO, 10 mg at 12/03/22 0915 ceFAZolin (ANCEF) 1 gram/10 mL IV syringe 1 g, 1 g, intravenous, q8h, Blade Price, DO, 1 g at 12/03/22 0916 HYDROmorphone (DILAUDID) injection 0.5 mg, 0.5 mg, intravenous, q3h PRN, Blade Palm DO, 0.5 mg at 12/02/22 1347 levothyroxine (SYNTHROID, LEVOTHROID) tablet 88 mcg, 88 mcg, oral, Daily, Blade Palm DO, 88 mcg at 12/03/22 09 melatonin tablet 6 mg, 6 mg, oral, [...] 10 mL, intravenous, BID, 10 mL at 12/03/2216 AND sodium chloride 0.9 % flush 10 mL, 10 mL, intravenous, PRN, Blade Price, DO, 10 mL at 12/02/22 1654 traZODone (DESYREL) tablet 50 mg, 50 mg, oral, Nightly PRN, Blade Price, DO Radiology/Diagnostics Results for orders placed during [...] the T2 level, spinal fusion hardware from K7hfmjvik T4. A small amount of residual enhancing [...] the T2 level, spinal fusion hardware from H9jdtuios T4. A small amount of residual enhancing [...] Tao. Patient has been doing therapy at [facility] in [place] and staff noted that his incision began looking erythematous, copious drainage. He was sent back to [facility] for evaluation by neurosurgery. Diagnoses: Possible postoperative [...] patient would like to go back to [facility] in [place] where he was doing rehab. Changed Vanegas [...] in October 2022. His brother lives in [facility] and is his POA, sister in [place]. No spouse or children. Edyta Rick, [facility] ([facility]) Subjective: She is awake and alert, remains [...] Oral 81 16 97 % 1.753 m (69") 77.1 kg (170 lb) Body mass index [...] the T2 level, spinal fusion hardware from G9deyipbk T4. A small amount of residual enhancing [...] the T2 level, spinal fusion hardware from T4bwpurbm T4. A small amount of residual enhancing [...] Marcello Fisher DO and documented in the Scripped system on 12/02/2022 12:31 AM, Message ID [id number]. -------- FINAL REPORT -------- Dictated By: Ricky [...] Marcello Fisher DO and documented in the Scripped system on 12/02/2022 12:31 AM, Message ID [id number]. -------- FINAL REPORT -------- Dictated By: Ricky Walters Dictated Date: 12/02/2022 00:09 Assigned Physician: Ricky Walters Reviewed and Electronically Signed By: Ricky Walters Signed Date: 12/02/2022 00:32 Workstation ID: [id number] Transcribed By: Self Edit Transcribed Date: 12/02/2022 00:09 Allergies: No Known Allergies * Zunilda Cross RN - 12/02/2022 10:42 AM EST Maxillofacial Surgeon Note: Orientation: alert and oriented to person, place, and time Patient Directives: Patient A&O, no HCPOA / no Living Will Patient Next of Kin / Surrogate Decision Maker is Sibling/s Alex Joe and Coty Pool Does the patient want anyone to be contacted?: Yes Insurance provider confirmed from chart: Yes and was correct Confirmed PCP: Salena Flores NP Yes and was correct Pharmacy: [facility]. [x] Yes and Confirmed Patient is able to afford medications Living Situation: Patient admitted from: Assisted Facility (SNF): [facility] Patient resides: 2 story home Address confirmed [...] is: N/A) Home Health Services: None Community Car Sales Representative: None Outside Services: None and SNF [facility] [...] Admitted: 12/01/2022 SIMIN: 12/04-08/19 A) Return to [facility] [phone], B) New SNF. Barrier to discharge: clinical course and symptom management. Decision maker: self. Pre-cert needed: n/a. Transport: [facility] per patient vs ambulance. PT/OT needed for eval and recommendations. Case Management Narrative: CM visited patient at bedside in the ER. Patient presented to [facility] with Post-op complications. Patient lives alone in a two story apartment with several internal steps and one step to enter home. Patient is currently at [facility] for rehab. New Dx of cancer and was scheduled to start radiation treatment today 12/02/22. Surgery has been consulted. Current discharge plan is to return to [facility]. [facility] vs ambulance transport. CM will continue to follow and support through discharge. * JEFFERY Carlson - 12/02/2022 10:01 AM EST Neurosurgery Brief Note Patient: Armand Barron Room: [facility] Age: 67 y.o. Attending: Edyta Rick DO Date of Service: 12/02/22 Admit: 12/01/2022 PCP: Salena Flores NP Patient seen this morning on [...] wound care JEFFERY Carlson Send message via Alibaba with further questions. * JEFFERY Gutierrez - 12/02/2022 12:36 AM EST Neurosurgery Progress Note Patient: Armand Barron [facility] Age: 67 y.o. Attending: Ledy Jackson* Date of Service: 12/02/22 Admit: 12/01/2022 PCP: Salena Flores NP Assessment/Plan Armand Barron is a 67 y/o M who presented 12/01 for evaluation of his incision. POD#21 S/P C7-T4 posterior fusion by pedicle screw fixation, T2, T7 removal of epidural tumor by laminectomy, facetectomy,foraminotomy by Dr. Tao 11/11/22. T7 Pathologic Compression Fracture - CT [...] imaging by neurosurgeon. JEFFERY Gutierrez Please call [phone] ([phone]) with any further questions or concerns. Greater [...] mg, 650 mg, oral, q6h PRN, Blade Price, DO amLODIPine (NORVASC) tablet 10 mg, 10 mg, oral, Daily, Blade Price, DO atorvastatin (LIPITOR) tablet 10 mg, 10 mg, oral, Daily, Blade Price, DO ceFAZolin (ANCEF) 1 gram/10 mL IV syringe 1 g, 1 g, intravenous, q8h, Blade Ascencioles, DO, 1 g at 12/02/22 001 HYDROmorphone (DILAUDID) injection 0.5 mg, 0.5 mg, intravenous, q3h PRN, Blade Price, DO, 0.5 mg at 12/02/22 0008 levothyroxine (SYNTHROID, LEVOTHROID) tablet 88 mcg, 88 mcg, oral, Daily, Blade Price, DO melatonin tablet 6 mg, 6 mg, oral, Nightly, Blade Price, DO, 6 mg at 12/02/22 001 metoprolol [...] DOCUMENT ONLY finding communicated directly to Marcello iFsher DO and documented in the Scripped system on 12/02/2022 12:31 AM, Message ID [id number]. -------- FINAL REPORT -------- Dictated By: Ricky [...] Marcello Fisher DO and documented in the Scripped system on 12/02/2022 12:31 AM, Message ID [id number]. -------- FINAL REPORT -------- Dictated By: Ricky [...] mid October 2022 with neurosurgery while at [facility] for compression fractures in his neck. [...] F) (Oral) Resp 16 Ht 1.753 m (69") Wt 77.1 kg (170 lb) SpO2 97% [...] management with physician/healthcare provider/other source -: Yes, Property Damage Claims Adjustor, discussed Neurosurgery FREDI for further management as [...] systemic therapy for his myeloma TBD at [facility] with [facility]. Radiation therapy was discussed. Plan to move forward pending once patient has adequate healing and deborah been removed. Clinical Impressions as of 12/01/222226 Infected wound DIAGNOSTIC IMPRESSION: 1. Infected wound DISPOSITION: Admit To Inpatient Marcello Fisher DO 12/01/22 1840 Marcello Fisher, 12/01/221927 Marcello Fisher DO 12/01/222226 Marcello Fisher DO 12/01/22 2247 Marcello Fisher, 12/02/22 0059 Marcello Fisher, 12/02/22 0212 documented in this encounterPunxsutawney Area [id number] Hospital course Narrative* Sierra Titus RD - 12/09/2022 12:59 PM EDT House supplement [...] Please date the dressing. documented in this [place] [id number] Hospital Discharge instructions* Discharge Instructions* Liliana Esteban NP - 12/07/2022 9:11 AM EDT Scheduled Future Appointments Provider Specialty Dept [facility] 12/14/2022 9:30 AM Emanuel Guerra MD; [facility] Radiation Oncology [phone] [facility] 12/15/2022 9:30 AM Emanuel Guerra MD; [facility] Radiation Oncology [phone] [facility] 12/16/2022 9:30 AM [facility] Radiation Oncology [phone] [facility] 12/17/2022 9:30 AM [facility] Radiation Oncology [phone] [facility] 12/18/2022 9:30 AM Emanuel Guerra MD; [facility] Radiation Oncology [phone] [facility] 01/28/2023 8:30 AM (Arrive by 8:15 AM) Salena Flores NP Family Medicine [phone] [facility] Follow up providers and departments Ish Tao Jr, MD Specialty: Neurosurgery [address] [place] [address] [place] [address] Next Steps: Follow up in 2 month(s) [...] Wound Management orders Post discharge care Destination [facility] Service: Assisted [address] [facility] [phone] Wound care management. Wound care/dressing changes to mid thoracic surgical wound every 5 days as follows: Remove old dressing and alginate packing from small open area, irrigate the open area with NS, pack the 2 cm deep site of where there was a seroma using the alginate Ag rope packing (in room), cover with a long foam bordered dressing. Please date the dressing." documented in this [facility]03-09-2023 Consult note* Edyta Quezada RN - 12/03/2022 [...] Area (cm^2) 1.4 cm^2 12/03/22 1346 Closure Deborah 12/03/22 1300 Drainage Description Serous;No odor 12/03/22 1346 Drainage Amount Scant 12/03/22 1346 Treatments Cleansed;Site care 12/03/22 1346 Dressing Foam 12/03/22 1346 Dressing Changed New 12/03/22 1346 Dressing Status Clean;Dry;Intact 12/03/22 1346 State of Healing Closed wound edges 12/03/22 1346 Tunneling 2 cm 12/03/22 1346 Edges Well-defined edges 12/03/22 1346 Number of Mission Removed 40 12/03/22 1346 Support Surface: pressure redistribution mattress Wound Summary Assessment: This nice fellow who works for the 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 12/03/2022 2:25 PM EST [facility]utawney Area [id number] Consult note* Edyta Quezada RN - 12/03/2022 [...] Area (cm^2) 1.4 cm^2 12/03/22 1346 Closure Deborah 12/03/22 1300 Drainage Description Serous;No odor 12/03/22 1346 Drainage Amount Scant 12/03/22 1346 Treatments Cleansed;Site care 12/03/22 1346 Dressing Foam 12/03/22 1346 Dressing Changed New 12/03/22 1346 Dressing Status Clean;Dry;Intact 12/03/22 1346 State of Healing Closed wound edges 12/03/22 1346 Tunneling 2 cm 12/03/22 1346 Edges Well-defined edges 12/03/22 1346 Number of Mission Removed 40 12/03/22 1346 Support Surface: pressure redistribution mattress Wound Summary Assessment: This nice fellow who works for the 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 Attending: Marcello Fisher DO [...] -Follow-up on labs/imaging JEFFERY Gutierrez Please call [phone] ([phone]) with any further questions or concerns. Chief complaint Chief Complaint Patient presents with Post-op Problem Patient had back surgery at [facility]. Facility attempted to take stables out today but felt wound did not appear to be healing appropriately and had a lot of drainage. Patient was advised to come to [facility] not [facility]. MANOJ Acuna is a 67 y.o. male. he presented to the hospital 12/01/2022 secondary to Post-op Problem (Patient had back surgery at [facility]. Facility attempted to take stables out today but felt wound did not appear to be healing appropriately and had a lot of drainage. Patient was advised to come to [facility] not [facility]. ) He has a history of multiple [...] the incision so they brought patient to [place] ED for further evaluation. Patient states he [...] CRP, Blood cultures pending documented in this encounterPunxsutawney Area [id number] Consult note* Louie Chakraborty MD - 12/02/2022 [...] to the patient for the IR consult. [employer] Phone: [phone] Note At the T7 level, there has [...] By: Self Edit Transcribed Date: 12/02/2022 07:20 [id number] Note At the T7 level, there has [...] By: Self Edit Transcribed Date: 12/02/2022 07:20 [id number] Note 1. Interval progression of severe pathologic [...] Marcello Fisher DO and documented in the Scripped system on 12/02/2022 12:31 AM, Message ID [id number]. -------- FINAL REPORT -------- Dictated By: Ricky Walters Dictated Date: 12/02/2022 00:09 Assigned Physician: Ricky Walters Reviewed and Electronically Signed By: Ricky Walters Signed Date: 12/02/2022 00:32 Workstation ID: [id number] Transcribed By: Self Edit Transcribed Date: 12/02/2022 00:09 [id number] Note 1. Interval progression of severe pathologic [...] Marcello Fisher DO and documented in the Scripped system on 12/02/2022 12:31 AM, Message ID [id number]. -------- FINAL REPORT -------- Dictated By: Ricky Walters Dictated Date: 12/02/2022 00:09 Assigned Physician: Ricky Walters Reviewed and Electronically Signed By: Ricky Walters Signed Date: 12/02/2022 00:32 Workstation ID: [id number] Transcribed By: Self Edit Transcribed Date: 12/02/2022 00:09 [id number] Miscellaneous Notes* ED Bed Hold Note - Mercy Mahan RN - 12/01/2022 11:16 PM EST Bed: AP-29 Expected date: Expected time: Means of arrival: Comments: Winston Ceron * ED Bed Hold Note - QUENTIN Hercules-P - 12/01/2022 6:07 PM EST Bed: AP-HF Expected date: Expected time: Means of arrival: Comments: Medic documented in this encounterPunxsutawney Area [id number] Note* ED Bed Hold Note - Mercy Mahan RN - 12/01/2022 11:16 PM EST Bed: - Expected date: Expected time: Means of arrival: Comments: Winston F Punxsutawney Area [id number] History and physical note* Nohemi Winters NP [...] by Dr. Tao. He was brought into [facility] emergency department on 12/01/2022 for evaluation of [...] Vanegas catheter. He has established with [facility] and was to start radiation tomorrow. [...] Oral 81 16 97 % 1.753 m (69") 77.1 kg (170 lb) Body mass index [...] Polychromasia Present 12/01/2022 1+ (A) (none) Final Echinocyte/Klemme Cells Present 12/01/2022 Present (A) (none) Final [...] Disposition: To be determined Nohemi Winters NP [facility] ([facility]) [employer] Phone: [phone] 370-280903-07-2023 History and physical note* Nohemi Winters NP [...] by Dr. Tao. He was brought into [facility] emergency department on 12/01/2022 for evaluation of [...] Vanegas catheter. He has established with [facility] and was to start radiation tomorrow. [...] Oral 81 16 97 % 1.753 m (69") 77.1 kg (170 lb) Body mass index [...] Perkins Reviewed and Electronically Signed By: Andrey Perikns Signed Date: 11/15/2022 00:09 Workstation ID: [id number] [...] Disposition: To be determined Nohemi Winters NP [facility]) documented in this encounterPunxsutawney Area [id number] Consult note* JEFFERY Gutierrez - 12/01/2022 7:12 PM ESTAssociated Order(s): IP CONSULT TO NEUROSURGERY Neurosurgery Initial Consultation Note Patient: Armand Barron Room[facility] Age: 67 y.o. Attending: Marcello Fisher DO [...] -Follow-up on labs/imaging JEFFERY Gutierrez Please call [phone] with any further questions or concerns. Chief complaint Chief Complaint Patient presents with Post-op Problem Patient had back surgery at [facility]. Facility attempted to take stables out today but felt wound did not appear to be healing appropriately and had a lot of drainage. Patient was advised to come to [facility] not [facility]. MANOJ Acuna is a 67 y.o. male. he presented to the hospital 12/01/2022 secondary to Post-op Problem (Patient had back surgery at [facility]. Facility attempted to take stables out today but felt wound did not appear to be healing appropriately and had a lot of drainage. Patient was advised to come to [facility] not [facility]. ) He has a history of multiple [...] the incision so they brought patient to [place] ED for further evaluation. Patient states he [...] Past Medical History: Diagnosis Date Cord compression ([facility]) 11/10/2022 T2-T7 cord compression Vanegas catheter in place 11/10/2022 Hypercholesteremia Hypertension Hypothyroidism Multiple myeloma ([facility]) 2022 Stapled skin wound 2022 [...] CBC, BMP, ESR, CRP, Blood cultures pending [facility] Area [id number] Note* ED Bed Hold Note - Romie Baeza EMT-P - 12/01/2022 6:07 PM EST Bed: [facility] Expected date: Expected time: Means of arrival: Comments: Medic [facility] Area [id number] History of Present illness Narrative* Emanuel Guerra MD - 11/30/2022 1:00 PM EST Images from the original note were not included. RADIATION ONCOLOGY TREATMENT PLANNING NOTE Patient Name (MRN): Armand Barron ([id number]) Radiation Oncologist: Emanuel Guerra MD : 1955 [...] be [facility] an [facility] after my review and approval of the final dosimetry. DIAGNOSIS AND STAGE Myeloma PLANNED PRESCRIPTION Treatment Site: T2-T7 Technique: 3DCRT Frequency: Daily Boost? Treatment Volume Dose (cGy) Fractions Resim? T2-T7 (T1-T8) 2000 01 [] Seq. [] SIB [] [] Seq. [...] FOLLOW-UP NOTE Patient Name (MRN): Armand Barron ([id number]) Radiation Oncologist: Emanuel Guerra MD : 1955 [...] be receiving that treatment either at the [facility] or [facility]. With respect to his disease in the [...] and foraminotomy; posterior thoracic fusion C7-T4; Pathology: Woodside restricted, plasma cell neoplasm INTERIM HISTORY Discharged to SNF Patient met with Dr. Addison last week. I contacted Dr. Addison by phone. Plans for systemic therapy underway but definitive date not set when it will be started. Maybe getting referred to [facility]. Patient has not seen neurosurgeon. Mission still in place. REVIEW OF SYSTEMS Review [...] Surgical wounds in thoracic spine appear healing; Deborah still in place Neurological: Mental Status: He [...] Simulation Ordered at: 11/30/22 1400 [facility] Scheduling location? [facility] Machine? TrueBeam Simulation Type: CT Image Fusion? No Approximate Dose: 2,000 Measurement Unit: cGy Approximate Fractions: 5 Is Boost / Cone down anticipated? No Concurrent Chemotherapy? No Planned Start Date: Standard Treatment Site: Spine Treatment Technique: 3D CARD LACER Anatomical Location: Thoracic Treatment Goal: Palliative Has the pt received prior radiation? No Pacemaker, ICD, or any Implanted Device? No Does the pt need an interpreter for the deaf? No Has the patient been consented? No [...] SCr of 0.71 mg/dL). documented in this encounterPunxsutawney Area [id number] History of Present illness Narrative* Brie Ulloa RN - 11/21/2022 2:03 PM EST [facility] able to accept patient today 11/21/2022. Hens completed. NO rapid covid needed. Transportation time set for 1500 with [facility]. Floor nurse, physician, facility, family, and patient updated. * Brie Ulloa RN - 11/21/2022 1:30 PM EST Images from the original note were not included. [place] Case Management Department [facility] Transportation Request [...] Ambulance Requesting Staff Members Call Back Number: [phone] Requesting Hospital: [facility] [id number] Attending Provider: Dale Chaves DO Patient Name: [...] and Other are listed in this list. [facility] - [address], [place] [address] Requested Passenger Booking Clerk Date and Time: TODAY - TIME:1500 Equipment: [...] continued medical management. Plan to discharge to [facility] pending pre cert approval. NO rapid covid needed. Patient will need transportation at discharge. * Herman Morillo PT - 11/21/2022 9:18 AM EST Patient: Armand Barron Age: 67 y.o. Sex: male Weakness [facility] Physical Therapy Treatment Multi-Disciplinary Rounding Report Ambulation: PLOF: Level of Passaic: Independent with mobility and functional transfers Lives [...] Spent: PT Time Calculation PT Start Time: 0918 PT Stop Time: 0956 PT Time Calculation (min): 38 min Time [...] User Outcome 11/21/22 124Shy Morillo PT Progressing Goal: Patient will roll via logroll Dates: Start: 11/12/22 Expected End: 11/27/22 Description: ModA Outcomes Date/Time User Outcome 11/21/22 1240 Herman Morillo PT Progressing Goal: Pt to complete slide board transfer to/from wheelchair with Dates: Start: 11/12/22 Expected End: 11/27/22 Description: ModA Outcomes Date/Time User Outcome 11/21/22 1240 Herman Morillo PT Progressing Encounter Problems (Resolved) There [...] - 11/21/2022 6:45 AM EST Called [facility] and spoke with Mariya regarding [...] were not included. Dale Chaves DO [facility] Hospitalists Daily Progress Note Patient Name: [...] Examination Temp: 36.6 C (97.9 F) (11/20 151) Heart Rate: 67 (11/20 1513) Resp: 12 (11/20 1513) BP: 108/70 (11/20 151) GENERAL: Awake, not in distress CV: Regular rate and rhythm GI: Soft, non-tender. NEURO: Alert, Ox3. Lower extremity paralysis Reviewed 11/20/22 4:42 PM EST: [x] Laboratory [] Radiology [] Cardiology [x] Medications [x] Transcriptions [] Microbiology [] Outside Records [] Family * Tresa Palm OT - 11/20/2022 3:22 PM EST Occupational Therapy Patient: Armand Barron Age: 67 y.o. Sex: male Weakness [facility] Occupational Therapy Treatment Multi-Disciplinary Rounding Report Ambulation: PLOF: Level of [place]: Independent with mobility and functional transfers Lives [...] Performance Level: Independent Outcomes Date/Time User Outcome 11/20/221118 Alise Junior RN Progressing Goal Note filed on 11/20/22 1700 by Tresa Palm OT Goal not addressed at this time Problem: Dressing Upper Extremities Goal: Patient will demonstrate use of appropriate intervention for safe dressing of upper extremities Dates: Start: 11/12/22 Expected End: 11/21/22 Description: Goal Type: STG, Performance Level: Stand by Assist Outcomes Date/Time User Outcome 11/20/221118 Alise Junior [...] sit to supine. PT with pt from [id number], unbillable time. * Laury Lau, VIDEOGRAPHER - 11/20/2022 1:06 PM EST Physical Therapy . Patient: Armand Barron Age: 67 y.o. Sex: male Weakness [facility] Physical Therapy Treatment Multi-Disciplinary Rounding Report Ambulation: Walking Assistance: Not attempted, medical/safety concerns PLOF: Level of [place]: Independent with mobility and functional transfers Lives [...] from LOB Outcomes Date/Time User Outcome 11/20/22 135Narcisa Lau PTA Progressing Problem: Mobility Goal: Patient will propel the wheelchair Dates: Start: 11/12/22 Expected End: 11/21/22 Description: 100 feet without rest break with close supervision in wide open space of hallway Outcomes Date/Time User Outcome 11/20/22 135Narcisa Lau PTA Progressing Problem: Safety Goal: Patient [...] SPEP showed a possible milligram gammopathy. However, Woodside/lambda ratio was 114.51 -11/11/2022 the patient underwent [...] 10:15 am. Currently he is scheduled for [facility], although this depends on his ability to [...] EST Chart Reviewed. LYNETTE received consult from CM that pt's sister Coty is requesting to speak to SW regarding questions about d/c plan. SW called Coty and left a message. Will await callback to assist with discharge needs. Per CM, pt going to [facility]. Spoke to sister Coty. Answered all questions and reiterated what the CM already told her. She verbalized understanding and is agreeable to the plan. * Brie Ulloa RN - 11/20/2022 9:42 AM EST CM spoke to patient's sister, Coty Pool [phone], regarding discharge plan for patient. CM updated that patient has been accepted to [facility] and transportation has been set up to and from radiation appointments. Pre cert is still pending. Sister had a lot of "what if" questions regarding patient going to [facility] after SNF stay. CM explained once patient has finished radiation and when appropriate another referral could be sent to [facility]. Once radiation treatment is complete patient and sister are under the impression the patient is to have one "shot" a week and at that point family would be able to transport patient to and from that appointment. Sister stated once patient has completed stay at SNF and IPR the family will be taking patient to [facility] where they will be able to assist and care for him if closer to family and patient is agreeable to this plan. Sisterstated patient started filling out Medicare papers, but didn't finish them. Sister requesting to speak to Vc++ Developer. Social Work notified. She asked if he filed for Medicare if [facility] would acc ept him or if transportation would be available to transport patient to and from radiation treatment appointments from [facility]. CM explained the patient wasn't denied d/t insurance, but because going to [facility] during radiation treatment would not be beneficial [...] CM updated patient regarding discharge plan to [facility] pending pre cert approval. Patient agreeable to this plan. Patient will need transportation at discharge. * Laury Lau, VIDEOGRAPHER - 11/20/2022 9:40 AM EST Physical Therapy Patient: Armand Barron Age: 67 y.o. Sex: male Weakness [facility] Physical Therapy Treatment Multi-Disciplinary Rounding Report Ambulation: PLOF: Level of Pass[place]: Independent with mobility and functional transfers Lives [...] with sitting up in wheelchairstating he feels "scrunched over". Discussed with patient that we will obtain [...] of hallway Outcomes Date/Time User Outcome 11/20/22 1038 Laury Lau PTA Progressing Problem: Safety Goal: [...] were not included. Dale Chaves DO [facility] Hospitalists Daily Progress Note Patient Name: [...] placement as patient continues to go to [facility] and also is being recommended to initiate on oncologic therapy however [facility] is unwilling to accept him to [...] Rate: 67 (11/19 1535) Resp: 15 (11/19 1535) BP: 115/72 (11/19 1535) GENERAL: Awake, not in distress CV: Regular [...] is going on. [facility] [place] and they can provide transportation to appointments. He chose [facility]. CM asked [facility] liaison to start precert today. * Laury Lau PTA - 11/19/2022 1:29 PM EST Physical Therapy Patient: rAmand Barron Age: 67 y.o. Sex: male Weakness [facility] Physical Therapy Treatment Multi-Disciplinary Rounding Report Ambulation: Walking Assistance: Not attempted, medical/safety concerns PLOF: Level of Pass[place]: Independent with mobility and functional transfers Lives [...] Date/Time User Outcome 11/15/22 1044 Gisel Shaffer, GIDEON Completed Goal: Maintains dynamic sitting balance with upper extremity support Dates: Start: 11/12/22 Expected End: 11/21/22 Description: X 5 minutes with no greater than Varun required to recover from LOB Outcomes Date/Time User Outcome 11/19/22 Gagandeep Lau PTA Progressing Problem: Mobility Goal: Patient [...] Barron Age: 67 y.o. Sex: male Weakness [facility] Occupational Therapy Treatment Multi-Disciplinary Rounding Report Ambulation: Functional Mobility Walking Assistance: Not attempted, medical/safety concerns PLOF: Carried over from prior note(s) Level of Passaic: Independent with mobility and functional transfers Lives [...] Patient sitting in wheelchair in hallway with VIDEOGRAPHER present at end of OT tx. OBJECTIVE [...] Level: Independent Outcomes Date/Time User Outcome 11/19/22 Ava Chirinos [...] Mod assist Outcomes Date/Time User Outcome 11/19/22 1038 Swapna [...] SPEP showed a possible milligram gammopathy. However, Woodside/lambda ratio was 114.51 -11/11/2022 the patient underwent [...] Barron Age: 67 y.o. Sex: male Weakness [facility] Physical Therapy Treatment Multi-Disciplinary Rounding Report Ambulation: Walking Assistance: Not attempted, medical/safety concerns PLOF: Level of Pass[place]: Independent with mobility and functional transfers Lives [...] PT Start Time: 926 PT Stop Time: 1007 PT Time Calculation (min): 41 min Time [...] from LOB Outcomes Date/Time User Outcome 11/19/22 1026 Laury Lau PTA Progressing Problem: Mobility Goal: [...] verbal cues Outcomes Date/Time User Outcome 11/19/22 102Amanda Lau PTA Progressing Problem: Transfers Goal: Patient to transfer to and from sit to supine via logroll Dates: Start: 11/12/22 Expected End: 11/21/22 Description: ModA Outcomes Date/Time User Outcome 11/19/22 1026 Laury Lau PTA Progressing Goal: Patient will [...] were not included. Dale Chaves DO [facility] Hospitalists Daily Progress Note Patient Name: Armand Barron PCP: Saelna Flores NP Perpetual Assessment: Armand Barron is [...] recommended to initiate on oncologic therapy however [facility] is unwilling to accept him to [...] Rate: 53 (11/18 1455) Resp: 15 (11/18 145) BP: 116/73 (11/18 1455) GENERAL: Awake, not [...] 3:12 PM EST Received a message from [facility] liaison stating if patient starting treatment they [...] Barron Age: 67 y.o. Sex: male Weakness [facility] Physical Therapy Treatment Multi-Disciplinary Rounding Report Ambulation: Walking Assistance: Not attempted, medical/safety concerns PLOF: Level of Passaic: Independent with mobility and functional transfers Lives [...] EOB with UE support. Pt noted to order schedule clerk sheet byhis sides to maintain sitting balance. [...] from LOB Outcomes Date/Time User Outcome 11/18/22 143Amanda Lau PTA Progressing Problem: Mobility Goal: Patient will propel the wheelchair Dates: Start: 11/12/22 Expected End: 11/21/22 Description: 100 feet without rest break with close supervision in wide open space of hallway Outcomes Date/Time User Outcome 11/18/22 SolAmanda Lau PTA Progressing Problem: Safety Goal: Patient will adhere to spine precautions during the completion of mobility skills Dates: Start: 11/12/22 Expected End: 11/21/22 Description: Minimal verbal cues Outcomes Date/Time User Outcome 11/18/22 Kiersten Lau PTA Progressing Problem: Transfers Goal: Patient to transfer to and from sit to supine via logroll Dates: Start: 11/12/22 Expected End: 11/21/22 Description: ModA Outcomes Date/Time User Outcome 11/18/22 Kiersten Lau PTA Progressing Goal: Patient will roll via logroll Dates: Start: 11/12/22 Expected End: 11/21/22 Description: ModA Outcomes Date/Time User Outcome 11/18/22 Kiersten Lau PTA Progressing Goal: Pt to complete slide board transfer to/from wheelchair with Dates: Start: 11/12/22 Expected End: 11/21/22 Description: ModA Outcomes Date/Time User Outcome 11/18/22 Kiersten Lau PTA Progressing Encounter Problems (Resolved) There are no resolved problems. EDUCATION Education Documentation No documentation found. Education Comments No comments found. \\ * Tresa Palm OT - 11/18/2022 1:47 PM EST Occupational Therapy Patient: Armand Barron Age: 67 y.o. Sex: male Weakness [facility] Occupational Therapy Treatment Multi-Disciplinary Rounding Report Ambulation: Functional Mobility Walking Assistance: Not attempted, medical/safety concerns PLOF: Carried over from prior note(s) Level of Passaic: Independent with mobility and functional transfers Lives [...] 11/18/22 1507 Tresa Palm OT Progressing Problem: Compromised Skin [...] POC and expectation for the future (including snf living as pt currently has second floor apt). CM also engaged family in discharge planning discussions. Pt and family provided education and all questions answered. Will continue to await final discharge facility. * Gabbi Beckford RN - 11/18/2022 12:18 PM EST MDRs completed and chart reviewed. Patient remains in house awaiting placement. Spoke with patient regarding plan and group home plans. CM explained that [facility] will not accept d/t d/c plan. [...] plan. She states patient will return to [place], [place] and stay with her as the group home plan until they are able toget everything in place. CM updated [facility]. [facility] * Emanuel Guerra MD - [...] SPEP showed a possible milligram gammopathy. However, Woodside/lambda ratio was 114.51 -11/11/2022 the patient underwent [...] with questions! Tico Fox MD * Laury Lau, VIDEOGRAPHER - 11/18/2022 9:00 AM EST [facility] Physical Therapy Treatment Multi-Disciplinary Rounding Report Ambulation: Walking Assistance: Not attempted, medical/safety concerns PLOF: Level of Pass[place]: Independent with mobility and functional transfers Lives [...] well Medical Staff Made Aware Yes Comments RN Alise Plan Treatment/Interventions Functional transfer training;LE strengthening/ROM;Endurance training;Bed [...] from LOB Outcomes Date/Time User Outcome 11/18/22 1452 Laury Lau PTA Progressing Problem: Mobility Goal: Patient will propel the wheelchair Dates: Start: 11/12/22 Expected End: 11/21/22 Description: 100 feet without rest break with close supervision in wide open space of hallway Outcomes Date/Time User Outcome 11/18/22 145Lucina Lau PTA Progressing Problem: Safety Goal: Patient [...] 4:13 PM EST Received call from Vaishnavi [facility] [phone], stated she spoke to patient regarding patient [...] were not included. Dale Chaves DO [facility] Hospitalists Daily Progress Note Patient Name: [...] Date of Discharge: Currently awaiting acceptance/pre-CERT to [facility] Medical/Social Complexity and Disposition: Patient requires continued hospitalization recovery from neurosurgery performed on 11/11 as above, workup positive for MM. Pt will dc to [facility]. History CC: leg weakness HPI and ROS: Patient seen and examined. He is still weak in his LEs. We discussed again plan of care. He understands dx is MM. He will hopefully regain some strength at [facility]. He will start on radiation and systemic [...] Barron Age: 67 y.o. Sex: male Weakness [facility] Occupational Therapy Treatment Multi-Disciplinary Rounding Report Ambulation: Functional Mobility Walking Assistance: Not attempted, medical/safety concerns PLOF: Level of [place]: Independent with mobility and functional transfers Lives [...] Reason for current recommendation: Pt was independent VIDEOGRAPHER. Pt needs max assist [id number] for funtional mobility and mod to max [...] Outcomes Date/Time User Outcome 11/17/22 1604 Edyta Harrison, OT Progressing Problem: Compromised Skin Integrity Goal: Patient demonstrates pressure reduction techniques Dates: Start: 11/12/22 Expected End: 11/26/22 Description: Goal Type: STG, Performance Level: Independent Outcomes Date/Time User Outcome 11/17/22 1604 Edyta Harrison, OT Progressing Problem: Dressing Upper Extremities Goal: Patient will demonstrate use of appropriate intervention for safe dressing of upper extremities Dates: Start: 11/12/22 Expected End: 11/26/22 Description: Goal Type: STG, Performance Level: Stand by Assist Outcomes Date/Time User Outcome 11/17/22 1604 Eydta Harrison, OT Progressing Problem: Dressings Lower Extremities Goal: Patient will utilize adaptive techniques/equipment to dress lower body Dates: Start: 11/12/22 Expected End: 11/26/22 Description: Goal Type: STG, Performance Level: Mod assist Outcomes Date/Time User Outcome 11/17/22 1604 Edyta Harrison, OT Progressing Problem: Safety Goal: Patient will [...] Education Comments No comments found. * Natasha Amelia, LIAM - 11/17/2022 1:46 PM EST Physical Therapy Patient: Armand Barron Age: 67 y.o. Sex: male Weakness [facility] Physical Therapy Treatment Multi-Disciplinary Rounding Report Ambulation: Walking Assistance: Not attempted, medical/safety concerns PLOF: Level of [place]: Independent with mobility and functional transfers Lives [...] maintain bowel/bladder functions. SUBJECTIVE Pt cleared by SERVICE MECHANIC Mere to be seen. OT co-treat indicated this date to ensure maximal safety and participation, billing reflects co-treat. Pt sitting up in bed upon entry, agreeable to therapy at thistime. Pt reports neck pain 2/10 to start session. OBJECTIVE Precautions: Precautions Medical [...] sitting up EOB x 10 minutes with MANAGER BUSINESS and SERVICE MECHANIC present for dressing change at incision site [...] light within reach and all needs met. SERVICE MECHANIC aware of pt status/position and level of [...] Description: ModA Outcomes Date/Time User Outcome 11/17/22 0126 Paige Knight LPN Progressing Encounter Problems (Resolved) There are no resolved problems. EDUCATION Education Documentation Spine Precautions, taught by Natasha Cisneros PTA at 11/17/2022 1:46 PM. Learner: Patient Readiness: Acceptance Method: Explanation, Demonstration Response: Verbalizes Understanding, Needs Reinforcement Body Mechanics, taught by Natasha Cinseros PTA at 11/17/2022 1:46 PM. Learner: Patient [...] Tao. PT recommending IPR. Patient accepted to [facility]. CM requested pre cert to be started [...] SPEP showed a possible milligram gammopathy. However, Woodside/lambda ratio was 114.51 -11/11/2022 the patient underwent [...] Neurosurgery Progress Note Patient: Armand Barron Room: 2E27/4K91-30 Age: 67 y.o. Attending: Dale Chaves DO Date of Service: 11/17/22 Admit: 11/10/2022 PCP: Salena Flores, MANAGER BUSINESS Assessment/Plan Kaleb Barron is a 67 year old male who presented to [facility] on 11/10/2022 with progressive loss of motor [...] with radiation treatment. Barriers to discharge: - [facility] referral pending - are anticipating denial d/t barriers to return to home setting, CaseManagement sent additional IPR referrals which are pending - OK to D/C from NS perspective Disposition: - Rad/Onc appointment for 11/30/2022 - Dr. Tao follow up appointment placed and faxed - DC instructions in - Pathology pending Neurosurgery will sign off at this time. Julieta Lin NP Send message via [employer] with further questions. Greater than 25 minutes [...] Fahad Mccoy MD, 10 mg at 11/16/22 0944 atorvastatin (LIPITOR) tablet 10 mg, 10 mg, oral, Daily, Fahad Mccoy MD, 10 mg at 11/16/22 0944 dexamethasone (DECADRON) injection 4 mg, 4 mg, intravenous, q6h DAVID, Renuka Addison MD, 4 mg at 11/17/22 0009 levothyroxine (SYNTHROID, LEVOTHROID) tablet 88 mcg, 88 mcg, oral, Daily, Fahad Mccoy MD, 88 mcg at 11/16/22 0944 metoprolol tartrate (LOPRESSOR) tablet 50 mg, 50 [...] BID, Louie Montiel DO, 8.6 mg at 11/16/22 7178 [COMPLETED] Insert peripheral IV, , , Once [...] 10 mL, intravenous, BID, 10 mL at 11/16/222350 AND sodium chloride 0.9 % flush 10 [...] were not included. Dale Chaves DO [facility] Hospitalists Daily Progress Note Patient Name: [...] Barron Age: 67 y.o. Sex: male Weakness [facility] Occupational Therapy Treatment Multi-Disciplinary Rounding Report Ambulation: Functional Mobility Walking Assistance: Not attempted, medical/safety concerns PLOF: Level of [place]: Independent with mobility and functional transfers Lives With: Alone Type of Home: Apartment Home Adaptive Equipment: None Home Layout: One level Home Access: Stairs to enter with rails Prior Function Comments: Pt functioned independently at baseline until Wednesday when his legs became weak resulting in a couple falls that preceeded this admission. DME Needs: Bedside commode, Senior Net Web Developer, Sock aide, Tub transfer bench (Wheelchair with removable armrests and footrests, drop arm bedside commode, slide board. 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 Pt needs max assist [id number] for funtional mobility and mod to max [...] facility placement and Equipment Recommended: Bedside commode, Senior Net Web Developer, Sock aide, Tub transfer bench (Wheelchair with [...] rehab facility placement Equipment Recommended: Bedside commode, Senior Net Web Developer, Sock aide, Tub transfer bench (Wheelchair with [...] 11/16/22 1512 Edyta Harrison OT Progressing Problem: Compromised Skin [...] Education Comments No comments found. * Natasha Cisneros, VIDEOGRAPHER - 11/16/2022 12:12 PM EST Physical Therapy Patient: Armand Barron Age: 67 y.o. Sex: male Weakness [facility] Physical Therapy Treatment Multi-Disciplinary Rounding Report Ambulation: Walking Assistance: Not attempted, medical/safety concerns PLOF: Level of [place]: Independent with mobility and functional transfers Lives [...] at this time. Pt reports back pain 3/10 to start session. OBJECTIVE Precautions: Precautions Medical [...] of hallway Outcomes Date/Time User Outcome 11/16/22 143Chelo Cisneros PTA Progressing Problem: Safety Goal: Patient will adhere to spine precautions during the completion of mobility skills Dates: Start: 11/12/22 Expected End: 11/27/22 Description: Minimal verbal cues Outcomes Date/Time User Outcome 11/16/22 143Chelo Cisneros PTA Progressing Problem: Transfers Goal: Patient to transfer to and from sit to supine via logroll Dates: Start: 11/12/22 Expected End: 11/27/22 Description: ModA Outcomes Date/Time User Outcome 11/16/22 143Chelo Cisneros PTA Progressing Goal: Patient will roll via logroll Dates: Start: 11/12/22 Expected End: 11/27/22 Description: ModA Outcomes Date/Time User Outcome 11/16/22 143Chelo Cisneros PTA Progressing Goal: Pt to complete slide board transfer to/from wheelchair with Dates: Start: 11/12/22 Expected End: 11/27/22 Description: ModA Outcomes Date/Time User Outcome 11/16/22 143Chelo Cisneros PTA Progressing Encounter Problems (Resolved) There are no resolved problems. EDUCATION Education Documentation Spine Precautions, taught by Natasha Cisneros PTA at 11/16/2022 12:12 PM. Learner: Patient Readiness: Acceptance Method: Explanation, Demonstration Response: Needs Reinforcement, Verbalizes Understanding Body Mechanics, taught by aNtasha Cisneros PTA at 11/16/2022 12:12 PM. Learner: Patient Readiness: Acceptance Method: Explanation, Demonstration Response: Needs Reinforcement, Verbalizes Understanding Mobility Training, taught by Natasha Cisneros PTA at 11/16/2022 12:12 PM. Learner: Patient Readiness: Acceptance Method: Explanation, Demonstration Response: Needs Reinforcement, Verbalizes Understanding Education Comments No comments found. * Kaitlyn Hurst PT - 11/16/2022 11:37 AM EST [facility]: Received IPR referral, chart reviewed with [facility] medical reception, who feels the patient is not a candidate for IPR at [facility], due to barriers to discharge to home setting, and severity of patient's functional impairments. Would be more appropriate for [facility] at this time. Discussed with Brie castrejon management. Thank you, Kaitlyn Hurst, MS, PT [phone] * Brie Ulloa RN - 11/16/2022 10:56 AM EST MDR's complete. Patient remains in house for continued medical management. 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 Tao. PT recommending IPR. PT andsurgeon recommending [facility]. Admissions liaison from [facility] stating anticipating denial d/t barriers to [...] SPEP showed a possible milligram gammopathy. However, [place]/lambda ratio was 114.51 Subjective: The patient is [...] kappa/lambda ratio, diagnostic of multiple myeloma Recommendations: -[place]/underage above 100 is diagnostic of multiple myeloma. [...] Neurosurgery Progress Note Patient: Armand Barron Room: 2E27/9M81-40 Age: 67 y.o. Attending: Dale Chaves DO Date of Service: 11/16/22 Admit: 11/10/2022 PCP: Salena Flores NP Assessment/Plan Kaleb Barron is a 67 year old male who presented to [facility] on 11/10/2022 with progressive loss of motor [...] with radiation treatment. Barriers to discharge: - [facility] referral pending - OK to D/C from NS perspective Disposition: - Rad/Onc appointment for 11/30/2022 - Dr. Tao follow up appointment placed and faxed - DC instructions in - Pathology pending Julieta Lin NP Send message via Alibaba with further questions. Greater than 25 minutes [...] Fahad Mccoy MD, 88 mcg at 11/15/22 09 metoprolol tartrate (LOPRESSOR) tablet 50 mg, 50 mg, oral, BID, Fahad cMcoy MD, 50 mg at 11/15/222021 ondansetron ODT [...] Onc continues to follow and awaiting path. [facility] referral still pending. Will follow up on Wednesday. * Tomás Cortez MD - 11/15/2022 2:08 PM EST Images from the original note were not included. Tomás Cortez MD [facility] Hospitalists Daily Progress Note Patient Name: [...] from the current surgery PT is recommending [facility] inpatient rehab at time of discharge and [...] Resp: 16 (11/15 1148) BP: 142/87 (11/15 1148) GENERAL: Awake, not in distress CV: Regular [...] Neurosurgery Progress Note Patient: Armand Barron Room: [address] [place] [address] Age: 67 y.o. Attending: Tomás Cortez MD Date of Service: 11/15/22 Admit: 11/10/2022 PCP: Salena Flores NP Kaleb Barron is a 67 year old male who presented to [facility] on 11/10/2022 with progressive loss of motor [...] pending Etelvina Benítez NP Send message via Alibaba with further questions. Time spent: 45 minutes [...] Renuka Addison MD, 4 mg at 11/15/22 0525 levothyroxine (SYNTHROID, LEVOTHROID) tablet 88 mcg, 88 mcg, oral, Daily, Fahad Mccoy MD, 88 mcg at 11/15/22 0931 metoprolol tartrate (LOPRESSOR) tablet 50 mg, 50 mg, oral, BID, Fahad Mccoy MD, 50 mg at 11/14/22 204 ondansetron ODT (ZOFRAN-ODT) disintegrating tablet 4 mg, [...] 10 mL, intravenous, BID, 10 mL at 11/14/222045 AND sodium chloride 0.9 % flush 10 [...] above similar to prior. 3. Please see chipping machine operator report. -------- FINAL REPORT -------- [...] above similar to prior. 3. Please see chipping machine operator report. -------- FINAL REPORT -------- [...] Barron Age: 67 y.o. Sex: male Weakness [facility] Occupational Therapy Treatment Multi-Disciplinary Rounding Report Ambulation: Functional Mobility Walking Assistance: Not attempted, medical/safety concerns PLOF: Level of [place]: Independent with mobility and functional transfers Lives With: Alone Type of Home: Apartment Home Adaptive Equipment: None Home Layout: One level Home Access: Stairs to enter with rails Prior Function Comments: Pt functioned independently at baseline until Wednesday when his legs became weak resulting in a couple falls that preceeded this admission. DME Needs: Bedside commode, Senior Net Web Developer, Sock aide, Tub transfer bench (Wheelchair with [...] facility placement and Equipment Recommended: Bedside commode, Senior Net Web Developer, Sock aide, Tub transfer bench (Wheelchair with [...] rehab facility placement Equipment Recommended: Bedside commode, Senior Net Web Developer, Sock aide, Tub transfer bench (Wheelchair with [...] by Assist Outcomes Date/Time User Outcome 11/15/22 1046 Carol Sepulveda, OT Progressing Problem: Compromised Skin Integrity Goal: Patient demonstrates pressure reduction techniques Dates: Start: 11/12/22 Expected End: 11/26/22 Description: Goal Type: STG, Performance Level: Independent Outcomes Date/Time User Outcome 11/15/22 1046 Carol Sepulveda, OT Not Progressing Problem: Dressing Upper Extremities Goal: Patient will demonstrate use of appropriate intervention for safe dressing of upper extremities Dates: Start: 11/12/22 Expected End: 11/26/22 Description: Goal Type: STG, Performance Level: Stand by Assist Outcomes Date/Time User Outcome 11/15/22 104Amanda Sepulveda OT Progressing Problem: Dressings Lower Extremities Goal: Patient will utilize adaptive techniques/equipment to dress lower body Dates: Start: 11/12/22 Expected End: 11/26/22 Description: Goal Type: STG, Performance Level: Mod assist Outcomes Date/Time User Outcome 11/15/22 104Amanda Sepulveda OT Not Progressing Problem: Safety Goal: Patient will adhere to cervical and back precautions during ADL's and transfers Dates: Start: 11/12/22 Expected End: 11/26/22 Description: Goal Type: STG, Performance Level: Independent Outcomes Date/Time User Outcome 11/15/22 104Amanda Sepulveda OT Progressing Problem: Transfers Goal: Patient [...] Barron Age: 67 y.o. Sex: male Weakness [facility] Physical Therapy Treatment Multi-Disciplinary Rounding Report Ambulation: PLOF: Level of [place]: Independent with mobility and functional transfers Lives [...] RN notified (Comment) (SUSANNAH Underwood and neurosurg MANAGER BUSINESS) Response to Interventions: pt states pain still 2/10 after activity Cognition: Cognition Orientation Level: Oriented to person, Oriented to situation Following Commands: Follows one step commands with repetition General Assessments: Static Sitting Balance Static Sitting-Level of Assistance: Contact guard Static Sitting-Comment/Number of Minutes: 10 (EOB prior to slide board to chair, SERVICE MECHANIC performing dressing change to incision) Functional Assessments: [...] upright. PT did discuss theseconcerns with neurosurgery MANAGER BUSINESS Etelvina and she states she will discuss [...] lami, facectomy, foraminotomy. Onc following, awaiting path. [facility] referral still pending. * Andrey Mendez, PT - 11/14/2022 1:38 PM EST Patient: Armand Barron Age: 67 y.o. Sex: male Weakness [facility] Physical Therapy Treatment Multi-Disciplinary Rounding Report Ambulation: n/as PLOF: Level of [place]: Independent with mobility and functional transfers Lives [...] alone, unable to ambulate, will bewnefit from [facility] for aggressive therapy in preparation for [...] sit-supine max assist + dependent transfer to HOB Attempted slide board transfer bed to wheelchair, unable [...] were not included. Tomás Cortez MD [facility] Hospitalists Daily Progress Note Patient Name: Armand Barron [facility] #: [id number] PCP: Salena Flores, TIP Perpetual Assessment: Armand [...] from the current surgery PT is recommending [facility] at time of discharge and [...] Neurosurgery Progress Note Patient: Armand Barron Room: 2E27/1D61-79 Age: 67 y.o. Attending: Tomás Cortez MD Date of Service: 11/14/22 Admit: 11/10/2022 PCP: Salena Flores NP Kaleb Barron is a 67 year old male who presented to [facility] on 11/10/2022 with progressive loss of motor [...] pending Etelvina Benítez NP Send message via Alibaba with further questions. Time spent: 45 minutes [...] 5/5 BLE DF/PF/KF/KE/HF/HE/ 0/5 Hip adduction/Hip abduction 1 GI: Abdomen soft, nontender Pulmonary: Respirations are [...] Renuka Addison MD, 4 mg at 11/14/22 0622 levothyroxine (SYNTHROID, LEVOTHROID) tablet 88 mcg, 88 [...] above similar to prior. 3. Please see chipping machine operator report. -------- FINAL REPORT -------- [...] above similar to prior. 3. Please see chipping machine operator report. -------- FINAL REPORT -------- [...] than 50% of the time was spent [id number] reviewing the diagnostic studies, diagnosis, natural history, [...] were not included. Sterling Snyder MD [facility] Hospitalists Daily Progress Note Patient Name: [...] from the current surgery PT is recommending [facility] inpatient rehab at time of discharge and [...] with TIP Moreno regarding discharge recommendations to [facility] for further rehab as well as education on pt's active control of bowel and bladder function as well as ADLs. * Natasha Cisneros PTA - 11/13/2022 3:12 PM EST Physical Therapy Patient: Armand Barron Age: 67 y.o. Sex: male Weakness [facility] Physical Therapy Treatment Multi-Disciplinary Rounding Report Ambulation: Walking Assistance: Not attempted, medical/safety concerns PLOF: Level of [place]: Independent with mobility and functional transfers Lives [...] bowel/bladder functions. SUBJECTIVE Pt cleared by JOHN Gonzalez to be seen. Pt supine in bed [...] from LOB Outcomes Date/Time User Outcome 11/13/22 172Narcisa Cisneros PTA Progressing Problem: Mobility Goal: Patient will propel the wheelchair Dates: Start: 11/12/22 Expected End: 11/27/22 Description: 100 feet without rest break with close supervision in wide open space of hallway Outcomes Date/Time User Outcome 11/13/22 1725 Natasha Cisneros PTA Progressing Problem: Safety Goal: Patient will adhere to spine precautions during the completion of mobility skills Dates: Start: 11/12/22 Expected End: 11/27/22 Description: Minimal verbal cues Outcomes Date/Time User Outcome 11/13/22 1725 Natasha Cisneros PTA Progressing Problem: Transfers Goal: [...] Oncology consulted. Vanegas in place. PT recommending [facility]. Referral sent. Awaiting acceptance. * Tiffanie Rogers NP - 11/13/2022 8:50 AM EST Neurosurgery Progress Note Patient: Armand Barron Room: 2E27/8N25-30 Age: 67 y.o. Attending: Sterling Snyder MD Date of Service: 11/13/22 Admit: 11/10/2022 PCP: Salena Flores NP Addendum at 16:30 - PT worked with patient, patient joyltvenkat sitting on wheel chair, - neurologically this afternoon RLE abd/add 1/5, rest RLE/LLE 0/5 - Referral sent to [facility] per case management notes - OK for radiation treatment from neurosurgical perspective after 3 weeks Assessment/Plan Kaleb Barron is a 67 year old male who presented to [facility] on 11/10/2022 with progressive loss of motor [...] pending Tiffanie Rogers NP Send message via Alibaba with further questions. Greater than 35 minutes [...] AC, Fahad Mccoy MD, 40 mg at 11/13/2242 promethazine (PHENERGAN) tablet 25 mg, 25 mg, [...] 10 mL, intravenous, BID, 10 mL at 11/12/222109 AND sodium chloride 0.9 % flush 10 [...] above similar to prior. 3. Please see chipping machine operator report. -------- FINAL REPORT -------- [...] above similar to prior. 3. Please see chipping machine operator report. -------- FINAL REPORT -------- [...] neurosurgery Julieta Lin NP note stating recommending [facility] for [facility]. PT also recommending [facility]. Referral sent. IF accepted patient [...] Barron Age: 67 y.o. Sex: male Weakness [facility] Physical Therapy Treatment Multi-Disciplinary Rounding Report Ambulation: PLOF: Level of [place]: Independent with mobility and functional transfers Lives [...] Recommendations: Inpatient rehab facility placement Time Spent: [id number] Time Entry: 16 minutes of therapeutic activity Goals: Encounter Problems Encounter Problems (Active) Template: Physical Therapy Problem: Balance Goal: Maintains static sitting balance without upper extremity support Dates: Start: 11/12/22 Expected End: 11/27/22 Description: X 2 minutes with CGA Outcomes Date/Time User Outcome 11/13/22 160 Laury Wu PT Progressing Goal: Maintains dynamic sitting balance with upper extremity support Dates: Start: 11/12/22 Expected End: 11/27/22 Description: X 5 minutes with no greater than Varun required to recover from LOB Outcomes Date/Time User Outcome 11/13/22 160 Laury Wu, PT Progressing Problem: Mobility Goal: [...] Outcomes Date/Time User Outcome 11/13/22 1604 Laury Wu PT Progressing Encounter Problems (Resolved) There are [...] were not included. Sterling Snyder MD [facility] Hospitalists Daily Progress Note Patient Name: [...] on back. Good urine output * Carol Sepulveda, OT - 11/12/2022 10:17 AM EST Occupational Therapy Patient: Armand Barron Age: 67 y.o. Sex: male Weakness [facility] Occupational Therapy Evaluation Multi-Disciplinary Rounding Report Ambulation: Functional Mobility Walking Assistance: Not attempted, medical/safety concerns PLOF: Level of [place]: Independent with mobility and functional transfers Lives With: Alone Type of Home: Apartment Home Adaptive Equipment: None Home Layout: One level Home Access: Stairs to enter with rails Prior Function Comments: Pt functioned independently at baseline until Wednesday when his legs became weak resulting in a couple falls that preceeded this admission. 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[employer]) Which is your dominant hand?: Right Prior [...] Ankle Plantar Flexion: 0/5 Additional Assessments: AM-PAC "6 Clicks" Scoring Form: Unable: 1 A Lot: 2 [...] Outcomes Date/Time User Outcome 11/12/22 1343 Laury Day, PT Progressing Problem: Safety Goal: Patient will adhere to spine precautions during the completion of mobility skills Dates: Start: 11/12/22 Expected End: 11/27/22 Description: Minimal verbal cues Outcomes Date/Time User Outcome 11/12/22 1343 Laury Wu PT Progressing Problem: Transfers Goal: Patient to [...] than 50% of the time was spent [id number] reviewing the diagnostic studies, diagnosis, natural history, and treatment options, and answering questions. Diagnostic Data : Today's vital signs, pertinent laboratory, imaging, and pathology reviewed. Please reference Electronic Medical Record for today's results. * Julieta Lin NP - 11/12/2022 6:14 AM EST Neurosurgery Progress Note Patient: Armand Barron Room: 2E27/3Q56-38 Age: 67 y.o. Attending: Fahad Mccoy MD [...] 67 year old male who presented to [facility] on 11/10/2022 with progressive loss of motor [...] - ADOD: pending clinical course - Recommend [facility] Julieta Lin NP Send message via Alibaba with further questions. Greater than 35 minutes [...] syringe 2 g, 2 g, intravenous, q8h, JEFFERY Holden, 2 g at 11/11/22 230 dexamethasone (DECADRON) [...] q4h PRN, JEFFERY Holden, 5 mg at 11/12/22 031 pantoprazole (PROTONIX) EC tablet 40 mg, 40 [...] 10 mL, intravenous, BID, 10 mL at 11/11/22822 AND sodium chloride 0.9 % flush 10 mL, 10 mL, intravenous, PRN, Fahad Mccoy MD sodium chloride 0.9 % infusion, 125 mL/hr, intravenous, Continuous, Fahad Mccoy MD, Last Rate: 125 mL/hr at 11/11/22428, 125 mL/hr at 11/11/22428 vancomycin (VANCOCIN) 1 [...] pt's pain controlled with pain meds * Monica Delgado RN - 11/11/2022 8:20 PM EST [...] were not included. Sterling Snyder MD [facility] Hospitalists Daily Progress Note [id number] PCP: Salena Flores NP Perpetual Assessment: Armand [...] than 50% of the time was spent [id number] reviewing the diagnostic studies, diagnosis, natural history, [...] Laguerre RN - 11/10/2022 3:31 PM EST Maxillofacial Surgeon Note CM met with pt. And completed initial assessment Patient mentation at time of initial Assessment: alert and oriented to person, place, and time Patient Directives: Patient A&O, no HCPOA / no Living Will Patient Next of Kin / Surrogate Decision Maker is Brother: Alex Barron [phone], Sister Coty Pool [phone] Baseline: Patient's baseline at time of admission: [...] support Pt. states his family lives in [facility]. CM encouraged pt. to call family and [...] ED via EMS w/c/o was seen at [facility] for constipation. Pt lost the use of [...] 80.7 kg (178 lb) Height: 1.651 m (65") Physical Exam Vitals and nursing note reviewed. [...] Monocytes Absolute 0.71 Polychromasia Present 1+ (*) Echinocyte/Klemme Cells Present Present (*) Helmet/Bite Cells Present Present (*) Total Counted 100 RAPID [id number] SCREENING, MOLECULAR CBC AND DIFFERENTIAL Narrative: The following orders were created for panel order CBC and differential. Procedure Abnormality Status --------- ------ CBC auto differential[[id number]] Abnormal Final result Please view results for [...] as follows: ED Course as of 11/10/22 1420 Tue Nov 10, 2022 140 I have reviewed the MRI and I can appreciate a thoracic spine lesion. Reviewed findings with neurosurgery and they recommend admission, low malignancy work-up. Hold on steroids for now. Will admit to hospital service Benefits/Risks of admission discussed with patient and/or health care junior sales representative. I discussed the case with the hospitalist team ([facility]) for admission. They are agreeable to admission at this time. 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 failure or compromise (Cord Compression) Critical care [...] to Inpatient Scheduled Future Appointments Provider Specialty Dept [facility] 11/10/2022 11:15 AM (Arrive by 10:45 AM) [facility] [phone] [facility] 11/10/2022 11:20 AM (Arrive by 10:50 AM) [facility] [phone] [facility] 11/10/2022 11:25 AM (Arrive by 10:55 AM) [facility] [phone] [facility] 11/26/2022 8:45 AM (Arrive by 8:30 AM) Michelle Eng PT Physical Therapy [phone] [facility] 01/28/2023 8:30 AM (Arrive by 8:15 AM) Salena Flores, TIP Family Medicine [phone] [facility] Prescriptions None At time of Disposition, the patient is in Stable condition. Rico Bhat MD 11/10/22 1116 Rico Bhat MD 11/10/22 1420 documented in this encounterPunxsutawney Area [id number] Hospital course Narrative* Dale Chaves DO - 11/21/2022 1:55 PM EST Recommend attempting trial of void with removal of vanegas after radiation therapy. If fails will need urology referral. documented in this encounterPunxsutawney Area [id number] Consult note* Sophia Major RN - 11/20/2022 11:17 AM ESTAssociated Order(s): IP CONSULT TO IV TEAM 18g/8 cm Powerglide placed using Real time ultrasound visualization of vascular needle entry and catheter placement used. Image stored in PACS. Vein compressed easily, had brisk blood return, and flushed without resistance. Patient tolerated well. Updated RN [facility] [id number] Consult note* Sophia Major RN - 11/20/2022 [...] Orders (From admission, onward) Start Ordered 11/11/22 175 Adult diet [facility]; General; Regular; Auto-Select Meals Diet effective now Comments: Advance as tolerated Question Answer Comment Location [facility] Diet Type (req) General General Diet Regular Is the patient able to participate in meal ordering? Auto-Select Meals 11/11/22 1809 Food/Nutrition-Current Status: Food/Nutrition Status Intake Type: P.O. [...] Appearance: well nourished Oc Diaz RD, LD [facility] Clinical Dietitian Primary Floors: 3N, 3S, 2East Office: [phone] * Emanuel Guerra MD - 11/12/2022 10:35 AM ESTAssociated Order(s): IP CONSULT TO RADIATION ONCOLOGY Images from the original note were not included. RADIATION ONCOLOGY CONSULTATION Patient Name (MRN): Armand Barron ([id number]) Radiation Oncologist: Emanuel Guerra MD : 1955 [...] work: Total CK 484; Sed rate 85 [place] Free light chain 137.31 mg/dL [place]/Lambda FLC Ratio 114.51 SPEP: Possible monoclonal gammopathy or pseudo-monoclonal gammopathy. An atypical electrophoretic band is identified which may represent a true "M-spike" as seen in multiple myeloma, other lymphoproliferative [...] syringe 2 g 2 g intravenous q8h [place] 2 g at 910 dexamethasone (DECADRON) injection 4 mg 4 mg intravenous q6h [facility] Renuka Addison MD 4 mg at 11/12/22 [...] 5 mg 5 mg oral q4h PRN [place] 5 mg at 11/12/22 0848 pantoprazole (PROTONIX) EC tablet 40 mg 40 mg oral q AM AC Fahad Mccoy MD 40 mg at 11/12/22 0639 promethazine (PHENERGAN) tablet 25 mg 25 mg oral q6h PRN [place] Or promethazine (PHENERGAN) suppository 25 mg 25 mg rectal q12h PRN [place] ropivacaine (NAROPIN) 0.5 % 246.25 mg, EPINEPHrine (ADRENALIN) 1 mg/mL 0.5 mg, ketorolac (TORADOL) 30 mg, cloNIDine (DURACLON) 80 mcg in sodium chloride 0.9 % 100 mL injection irrigation Once Ish Ortiz Jr., MD senna (SENOKOT) tablet 17.2 mg 2 tablet oral Nightly PRN JEFFERY Bernardo senna (SENOKOT) tablet 17.2 mg 2 tablet oral Nightly Natalie JEFFERY Villa 17.2 mg at 11/11/222104 sodium chloride 0.9 [...] F) (Oral) Resp 14 Ht 1.651 m (65") Wt 80.7 kg (178 lb) BMI 29.62 [...] is single. Non-smoker he works for the [employer]. Review of systems: Upper back pain along [...] Initial Consultation Note Patient: Armand Barron Room: Z2 Age: 67 y.o. Attending: Rico Bhat MD Date of Service: 11/10/22 Admit: 11/10/2022 PCP: Salena Flores, TIP 6732 Patient is on the surgery schedule for [...] procedure 11/11 -Pending clinical course Rich Castillo, COOPER 60 minutes were spent reviewing patient's chart, [...] patient reports his left leg was feeling "rubbery" but was having no issues with walking. [...] 911 about 9:30 AM. Patient presented to [facility] emergency department and neurosurgery was consulted based [...] would like to proceed. documented in this encounterPunxsutawney Area [id number] History of Present illness Narrative* Michelle Eng, PT - 11/19/2022 8:14 AM EST Therapist spoke to pt regarding his OPPT eval scheduled for 11-26-22 for upper back & L shld pain. This referral was ordered Oct 09 by Salena Flores NP. It appears since this time he has had spinal surgery & he is currently at [facility] awaiting transfer to [facility] for IP rehab due to significant change in medical status since the original PT referral was written. This referral will be closed & eval cancelled due to pt undergoing other medical treatments. Michelle Eng PT documented in this encounterPunxsutawney Area [id number] Hospital Discharge instructions* Discharge Instructions* Julieta Lin NP - 11/16/2022 6:54 AM EST Home Care Instructions: Back Surgery Please follow these instructions when caring for yourself at home. Your first office visit will be approximately 2-6 weeks after surgery. If you have any questions or problems before your first follow-up office visit, please call the neurosurgery office at [phone]. Diet: Increase protein intake to promote wound [...] your blood thinner. A stool softener purchased [id number] may be helpful to prevent constipation while [...] your surgeon, please call the office at [phone] to schedule one. If you have sutures/deborah and do not have an appointment to have them removed within 14 days of surgery, please call the office at [phone] to schedule their removal. Return to Work or School: Call the office at [phone] if you need any school or work-related [...] room or call 911. documented in this encounterPunxsutawney Area [id number] Consult note* Oc Joe, JORJE - 11/12/2022 1:23 PM EST 11/12/2022 @ [...] onward) Start Ordered 11/11/22 1757 Adult diet [facility]; General; Regular; Auto-Select Meals Diet effective now Comments: Advance as tolerated Question Answer Comment Location [facility] Diet Type (req) General General Diet Regular Is the patient able to participate in meal ordering? Auto-Select Meals 11/11/22 1803 Food/Nutrition-Current Status: Food/Nutrition Status Intake Type: P.O. [...] Appearance: well nourished Oc Diaz RD, LD [facility] Clinical Dietitian Primary Floors: 3N, 3S, 2East Office: [phone] [facility] Area [id number] Consult note* Emanuel Guerra MD - 11/12/2022 10:35 AM ESTAssociated Order(s): IP CONSULT TO RADIATION ONCOLOGY Images from the original note were not included. RADIATION ONCOLOGY CONSULTATION Patient Name (MRN): Armand Barron ([id number]) Radiation Oncologist: Emanuel Guerra MD : 1955 [...] of this patient. HISTORY OF PRESENT ILLNESS Armadn Barron is a 67 y.o. male with [...] work: Total CK 484; Sed rate 85 [place] Free light chain 137.31 mg/dL [place]/Lambda FLC Ratio 114.51 SPEP: Possible monoclonal gammopathy or pseudo-monoclonal gammopathy. An atypical electrophoretic band is identified which may represent a true "M-spike" as seen in multiple myeloma, other lymphoproliferative [...] syringe 2 g 2 g intravenous q8h [place] 2 g at dexamethasone (DECADRON) injection 4 mg 4 mg intravenous q6h DAVID Addison MD 4 mg at 11/12/22 0639 [...] 5 mg 5 mg oral q4h PRN [facility] 5 mg at 11/12/22 0848 pantoprazole (PROTONIX) EC tablet 40 mg 40 mg oral q AM AC Fahad Mccoy MD 40 mg at 11/12/22 0639 promethazine (PHENERGAN) tablet 25 mg 25 mg oral q6h PRN [facility] Or promethazine (PHENERGAN) suppository 25 mg 25 mg rectal q12h PRN [facility] ropivacaine (NAROPIN) 0.5 % 246.25 mg, EPINEPHrine (ADRENALIN) 1 mg/mL 0.5 mg, ketorolac (TORADOL) 30 mg, cloNIDine (DURACLON) 80 mcg in sodium chloride 0.9 % 100 mL injection irrigation Once Ish Ortiz Jr., MD senna (SENOKOT) tablet 17.2 mg 2 tablet oral Nightly PRN JEFFERY Bernardo senna (SENOKOT) tablet 17.2 mg 2 tablet oral Nightly [place] 17.2 mg at 11/11/22 2105 sodium chloride [...] F) (Oral) Resp 14 Ht 1.651 m (65") Wt 80.7 kg (178 lb) BMI 29.62 [...] and any additional reports as described above. [id number] Procedure note* Ish Tao Jr., MD - [...] pedicle screw fixation Surgeon: Ish Tao M.D. assistant activities director: Dipika Addison PA-C, Natalie Villa PA-C Anesthesia: [...] was brought into the operating suite at [facility]. X-ray guidance was used to approximate [...] Allthe hardware was tightened using a torque solid waste truck driver. The inferior portion of the incision [...] of the procedure. Ish Tao Jr, MD [employer] Phone: [phone]) 111-139202-15-2023 Procedure note* Ish Tao Jr., MD - [...] pedicle screw fixation Surgeon: Ish Tao M.D. assistant activities director: Dipika Addison PA-C, Natalie Villa PA-C Anesthesia: [...] was brought into the operating suite at [facility]. X-ray guidance was used to approximate [...] Allthe hardware was tightened using a torque solid waste truck driver. The inferior portion of the incision [...] Ish Tao Jr, MD documented in this [facility]02-14-2023 Consult note* Renuka Addison MD - 11/10/2022 [...] is single. Non-smoker he works for the [employer] social drinker. Review of systems: Upper back [...] I did start the patient on dexamethasone [id number] History and physical note* Merlyn Baugh RN [...] F) (Axillary) Resp 18 Ht 1.651 m (65") Wt 80.7 kg (178 lb) SpO2 96% [...] - Continue levothyroxine GERD - Continue PPI Fly[employer] [id number] History and physical note* Merlyn Baugh RN [...] F) (Axillary) Resp 18 Ht 1.651 m (65") Wt 80.7 kg (178 lb) SpO2 96% [...] were not included. Fahad Mccoy MD [facility] Hospitalists History and Physical Patient Name: [...] Resp: 18 (11/10 1449) BP: 116/82 (11/10 144) GENERAL: Male in NAD CV: Regular rate [...] Outside Records [] Family documented in this encounterPunxsutawney Area [id number] History and physical note* Fahad Mccoy MD - 11/10/2022 3:36 PM EST Images from the original note were not included. Fahad Mccoy MD [facility] Hospitalists History and Physical Patient Name: [...] [] Microbiology [] Outside Records [] Family [facility] Area [id number] Consult note* Rich Castillo NP - 11/10/2022 11:54 AM ESTAssociated Order(s): IP CONSULT TO NEUROSURGERY Neurosurgery Initial Consultation Note Patient: Armand Barron Room: [facility] Age: 67 y.o. Attending: Rico Bhat MD Date of Service: 11/10/22 Admit: 11/10/2022 PCP: Salena Flores, TIP 1631 Patient is on the surgery schedule for [...] Neurosurgical procedure 11/11 -Pending clinical course Rich Jonathan, OFFSET PROOF PRESS OPERATOR 60 minutes were spent reviewing patient's chart, [...] patient reports his left leg was feeling "rubbery" but was having no issues with walking. [...] 911 about 9:30 AM. Patient presented to [facility] emergency department and neurosurgery was consulted based [...] expected recovery. He would like to proceed. [employer] Phone: [phone] 743-164701-13-2023 History of Present illness Narrative* Salena Flores, MANAGER BUSINESS - 10/09/2022 8:30 AM EST Subjective Patient ID: Armand Barron is a 67 y.o. male. Back pain - still radiating over to chest at times; feels as though he's taking too much advil; sawortho in August (Dr. Jimenez) and feels as [...] 12 capsule; Refill: 2 documented in this [facility]01-09-2023 History of Present illness Narrative* Nati Rodarte MA - 10/05/2022 3:44 PM EST Pt is requesting a refill on vitamin D. documented in this [facility]12-08-2022 History of Present illness Narrative* Nati Rodarte MA - 09/03/2022 3:49 PM EST Can you also place any labs you would like him to complete in 3 months? * Gissel Kasper - 09/03/2022 3:44 PM EST Pt needs a refill on levothyroxine 88 mcg - pt will be out this weekend documented in this [facility]11-25-2022 History of Present illness Narrative* Salena Flores [...] to Orthopedic Surgery; Future documented in this [facility]11-03-2022 History of Present illness Narrative* Salena Flores [...] D 25 hydroxy; Future documented in this encounterPunxsutawney Area [id number] History of Present illness Narrative* Armand José [...] or leg pain. 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 Work is not been [...] spine, and radiology report. documented in this encounterPunxsutawney Area [id number] History of Present illness Narrative* Maryann Dee MA - 06/04/2022 4:20 PM EDT Spoke to patient and appointment scheduled with Dr José for 06/15/22. * Tonia Thompson - 05/29/2022 3:25 PM EDT Patient has referral in the system. He stopped in ib 05/29 wanting to be scheduled I told him someonewould reach out to him. documented in this encounterPunxsutawney Area [id number] History of Present illness Narrative* Salena Flores NP - 05/19/2022 3:36 PM EDT This was already done earlier today. * Gissel Kasper - 05/19/2022 3:09 PM EDT Pt walked in : asking if the referral for spine spec. Can be done - ( knowcorbin Flores is out) As soon as she can please documented in this encounterPunxsutawney Area [id number] History of Present illness Narrative* Nati Rodarte MA - 05/13/2022 2:14 PM EDT Pt called back and he is ok with the tree specialist referral. documented in this [facility]08-11-2022 History of Present illness Narrative* Salena Flores [...] Spine 2 Views; Future documented in this encounterPunxsutawney Area [id number] History of Present illness Narrative* Salena Flores [...] 19 each; Refill: 0 documented in this encounterPunxsutawney Area [id number] History of Present illness Narrative* Salena Flores [...] tizanidine if not better documented in this encounterPunxsutawney Area [id number] History of Present illness Narrative* Salena Flores [...] bedroom set Review of Systems As per [facility] Objective Physical Exam Vitals and nursing note [...] 90 each; Refill: 1 documented in this encounterPunxsutawney Area [id number] History of Present illness Narrative* Salena Flores [...] Essential hypertension Mixed hyperlipidemia documented in this encounterPunxsutawney Area [id number] History of Present illness Narrative* Petros Bartholomew MD - 09/16/2021 4:53 PM EST sent * Lilly Benjamin - 09/16/2021 3:32 PM EST Patient stopped into office and needs a refill on his levothyroxine 88 mcg. He states he took the last pill today. Can you refill this? Pharmacy on file is correct. documented in this encounterPunxsutawney Area [id number] History of Present illness Narrative* Petros Bartholomew MD - 08/25/2021 10:03 AM EST Patient needs to contact provider for refills documented in this encounterPunxsutawney Area HospitalJriaau36-34-3233 History of Present illness Narrative* Petros Bartholomew [...] F) (Temporal) Resp 16 Ht 1.651 m (65") Wt 82.6 kg (182 lb 3.2 oz) [...] normal. Judgment: Judgment normal. [facility] Diagnosis Hypothyroidism, unspecified type- Primary Mixed hyperlipidemia Essential hypertension Unspecified essential hypertension Vitamin D deficiency documented in this encounter [facility] note* Diagnosis Hypothyroidism, unspecified documented in this encounter [facility] note* Diagnosis Hypothyroidism, unspecified type- Primary documented in this encounter [facility] note* Diagnosis COVID-19 vaccine administered- Primary documented in this encounter [facility] note* Diagnosis Chest discomfort- Primary Other chest pain Hypothyroidism, unspecified type Essential hypertension Unspecified essential hypertension Mixed hyperlipidemia documented in this encounter [facility] note* Diagnosis Strain of left trapezius muscle, initial encounter- Primary Chest discomfort Other chest pain documented in this encounter [facility] note* Diagnosis Vitamin D deficiency, unspecified documented in this encounter [facility] note* Diagnosis Strain of trapezius muscle, left, subsequent encounter- Primary documented in this encounter [facility] note* Diagnosis Upper back pain- Primary Unspecified backache documented in this encounter [facility] note* Diagnosis Upper back pain on left side- Primary Upper back pain on left side documented in this encounter [facility] note* Diagnosis Upper back pain on left side documented in this encounter [facility] note* Diagnosis Upper back pain- Primary Unspecified backache documented in this encounter [facility] note* Diagnosis Upper back pain Unspecified backache documented in this encounter [facility] note* Diagnosis Essential hypertension Unspecified essential hypertension Mixed hyperlipidemia documented in this encounter [facility] note* Diagnosis Mixed hyperlipidemia- Primary Essential hypertension Unspecified essential hypertension Hypothyroidism, unspecified type Upper back pain on left side Vitamin D deficiency documented in this encounter [facility] note* Diagnosis COVID-19 vaccine administered- Primary documented in this encounter [facility] note* Diagnosis Chest discomfort Other chest pain documented in this encounter [facility] note* Diagnosis Left shoulder pain, unspecified chronicity- Primary Left shoulder pain, unspecified chronicity documented in this encounter [facility] HospitalEvaluation [facility]* Diagnosis Left shoulder pain, unspecified chronicity documented in this encounter [facility]Eval[facility]* Diagnosis Left shoulder pain, unspecified chronicity- Primary Upper back pain Unspecified backache Vitamin D deficiency, unspecified documented in this encounter [facility]Eval[facility]* Diagnosis Weakness- Primary Other malaise and fatigue Cord compression (CMS/HCC) Unspecified disease of spinal cord Thoracic spine tumor Essential hypertension Unspecified essential hypertension Hypothyroidism Unspecified hypothyroidism Mixed hyperlipidemia Cord compression (CMS/HCC) Unspecified disease of spinal cord 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) documented in this encounter [facility] HospitalEvalusaint [facility] note* Diagnosis Multiple myeloma not having achieved remission (CMS/HCC)- Primary 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) documented in this encounter [facility] HospitalEvaluation note* Diagnosis Infected wound- Primary Posttraumatic wound infection not elsewhere classified Infected wound Posttraumatic wound infection not elsewhere classified Cord compression (CMS/HCC) Unspecified disease of spinal cord Weakness Other malaise and fatigue documented in this encounter [facility]Eval[facility]* Diagnosis Wound disruption- Primary Disruption of wound, unspecified Surgical site infection documented in this encounter [facility]Evaluation [facility]* Diagnosis Multiple myeloma not having achieved remission (CMS/HCC)- Primary documented in this encounter [facility]Eval[facility]* Diagnosis Multiple myeloma not having achieved remission (CMS/HCC) 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) Cord compression (CMS/HCC) Unspecified disease of spinal cord documented in this encounter [facility] HospitalEvaluation [facility]* Diagnosis Multiple myeloma not having achieved remission (CMS/HCC)- Primary documented in this encounter [facility]Evaluation [facility]* Diagnosis Multiple myeloma not having achieved remission (CMS/HCC) documented in this encounter [facility] HospitalEvaluation [facility]* Diagnosis Multiple myeloma, remission status unspecified- Primary [facility] Diagnosis Onset Date Resolution Status Anemia chronic DVT (deep venous thrombosis) chronic Multiple myeloma chronic Paraplegia [facility] Work Phone: Evaluation note* Diagnosis Onset Date Resolution Status Anemia chronic DVT (deep venous thrombosis) chronic Multiple myeloma chronic Paraplegia chronic Anemia chronic DVT (deep venous thrombosis) chronic Multiple myeloma chronic Paraplegia [facility] Work Phone: Evaluation note* Diagnosis Onset Date Resolution Status Anemia chronic DVT (deep venous thrombosis) chronic Multiple myeloma chronic Paraplegia chronic Anemia chronic DVT (deep venous thrombosis) chronic Multiple myeloma chronic Paraplegia chronic History of radiation therapy acute Non-healing surgical wound a cute Multiple myeloma chronic Paraplegia chronic [facility] Work Phone: Evaluation note* Diagnosis Onset Date Resolution Status Anemia chronic DVT (deep venous thrombosis) chronic Multiple myeloma chronic Paraplegia chronic Anemia chronic DVT (deep venous thrombosis) chronic Multiple myeloma chronic Paraplegia chronic History of radiation therapy acute Non-healing surgical wound a cute Multiple myeloma chronic Paraplegia chronic Anemia chronic DVT (deep venous thrombosis) chronic Multiple myeloma chronic Paraplegia chronic [facility] Work Phone: Evaluation note* Diagnosis Multiple myeloma, remission status unspecified- Primary Chronic deep vein thrombosis (DVT) of proximal vein of both lower extremities [facility] Diagnosis Onset Date Resolution Status Anemia [...] a cute Multiple myeloma chronic Paraplegia chronic [facility] Work Phone: Evaluation note* Diagnosis Onset Date [...] thrombosis) chronic Multiple myeloma chronic Paraplegia chronic [facility] Work Phone: Evaluation note* Diagnosis Onset Date [...] a cute Multiple myeloma chronic Paraplegia chronic [facility] Work Phone: Evaluation note* Diagnosis Onset Date [...] a cute Multiple myeloma chronic Paraplegia chronic [facility] Work Phone: Evaluation note* Diagnosis Onset Date [...] of radiation chr onic Multiple myeloma chronic [id number] chronic Paraplegia chronic Personal history of 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 Anemia chronic DVT (deep venous thrombosis) chronic Multiple myeloma chronic Paraplegia chronic [facility] Work Phone: Evaluation note* Diagnosis Onset Date [...] of radiation chr onic Multiple myeloma chronic [id number] chronic Paraplegia chronic Personal history of 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 Anemia chronic DVT (deep venous thrombosis) chronic Multiple myeloma chronic Paraplegia chronic History of radiation therapy acute Non-healing surgical wound a cute Multiple myeloma chronic Paraplegia chronic Anemia chronic DVT (deep venous thrombosis) chronic Multiple myeloma chronic Paraplegia chronic [facility] Work Phone: Evaluation note* Diagnosis Multiple myeloma, remission status unspecified- Primary [facility] encounter [facility]* Diagnosis Disruption of external operation (surgical) wound, not elsewhere classified, sequela- Primary Multiple myeloma, remission status unspecified (HCC) 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 [facility] Diagnosis Disruption of external operation (surgical) wound, not elsewhere classified, sequela- Primary 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 Multiple myeloma, remission status unspecified (HCC) [facility] Disruption of external operation (surgical) wound, not elsewhere classified, sequela- Primary 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 Multiple myeloma, remission status unspecified (HCC) [facility] Diagnosis Disruption of external operation (surgical) wound, not elsewhere classified, sequela [facility] Diagnosis Disruption of external operation (surgical) wound, not elsewhere classified, sequela documented in this encounter [facility]* Diagnosis Disruption of external operation (surgical) wound, not elsewhere classified, sequela documented in this encounter [facility] note* Diagnosis Disruption of external operation (surgical) wound, not elsewhere classified, sequela- Primary 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 Multiple myeloma, remission status unspecified (HCC) documented in this encounter [facility] note* Diagnosis Benign prostatic hyperplasia with urinary retention documented in this encounter [facility]* Diagnosis Benign prostatic hyperplasia with urinary retention- Primary Benign prostatic hyperplasia with urinary retention documented in this encounter [facility] note* Diagnosis Benign prostatic hyperplasia with urinary retention- Primary documented in this encounter [facility] note* Diagnosis Benign prostatic hyperplasia with urinary retention- Primary Neurogenic bladder Neurogenic bladder, NOS documented in this encounter [facility] note* Diagnosis Compression fracture of T2 vertebra, sequela- Primary Multiple myeloma in remission (HCC) Multiple myeloma in remission Abnormal posture documented in this encounter [facility] note* Diagnosis Multiple myeloma, remission status unspecified- Primary [facility] Attachments The following attachments cannot be sent through Care Everywhere. * Bone Marrow Aspiration and Biopsy: Post-op ([place] Island[place]) documented in this encounterKristin Escobar for referral (narrative)* Consultation (Routine) - Authorized Specialty Diagnoses / Procedures Referred By Katelyn carlson Referred To Contact Neurosurgery Diagnoses Upper back pain Salena Flores NP [address] [address] Referral ID Status Reason Start Date Expiration Date Visits Requested Visits Authorized [id number] Authorized Specialty Services Required 05/19/2022 11/15/2022 1 [facility] Consultation (Routine) - Authorized Specialty Diagnoses / Procedures Referred By Katelyn carlson Referred To Contact Orthopaedics / Orthopaedic Surgery Diagnoses Left shoulder pain, unspecified chronicity Salena Flores NP [address] [address] Referral ID Status Reason Start Date Expiration Date Visits Requested Visits Authorized [id number] Authorized Specialty Services Required 02/17/2023 1 1 Kristin Mir TesenReason for referral (narrative)* Consultation (Routine) - Authorized Specialty Diagnoses / Procedures Referred By Katelyn t Referred To Contact Neurosurgery Diagnoses Cord compression (CMS/HCC) Liliana Blackman NP [address] [place] [id number] [facility] Neurosurgery [address] [address] Referral ID Status Reason Start Date Expiration Date Visits Requested Visits Authorized [id number] Authorized Specialty Services Required 12/07/2022 06/05/2023 1 1 Scheduling Instructions NO IMAGING INDICATED Flyby MediaReason for referral (narrative)No reason for referral information [facility]WOhio[facility] Work Phone: [place] for visit Narrative* Consultation (Routine) - Authorized Specialty Diagnoses / Procedures Referred By Contact Referred To Contact Interventional Radiology Diagnoses Multiple myeloma not having achieved remission (CMS/HCC) Renuka Addison MD [address] [place] [address] [facility] Referral ID Status Reason Start Date Expiration Date Visits Requested Visits Authorized [id number] Authorized Specialty Services Required 01/19/2023 07/18/2023 1 1 [employer] MediaReason for visit Narrative* Consultation (Routine) - Authorized Specialty Diagnoses / Procedures Referred By Contact Referred To Contact Interventional Radiology Diagnoses Multiple myeloma not having achieved remission (CMS/HCC) Renuka Addison MD [address] [place] [address] [facility] Referral ID Status Reason Start Date Expiration Date Visits Requested Visits Authorized [id number] Authorized Specialty Services Required 02/03/2023 02/03/2024 1 1 [facility] Summary Purpose Family History No Family History Records Found Relationship Condition Age at Onset Recorded Date/T saul Not Specified Malignant neoplasm Unknown mother Follicular lymphoma Unknown father Hypertension Unknown Cardiac disease Unknown brother Hypertension Unknown Advance Directives No Advanced Directives Records FoundDocuments on File Type Date Recorded Patient Media Producer Expl anation Power of Medical Delivery Technician Latest Code Status on File Code Status [...] Documents on File Type Date Recorded Patient Media Producer Expl anation Advance Directives and Livin g [...] Agents on File Name Relationship Healthcare Agent [facility] p Communication Coty Pool [facility] Care Agent Documents on File Type Date Recorded Patient Media Producer Expl anation Advance Directives and Livin g [...] Name Relationship Healthcare Agent Relationshi p Communication [facility] Care Agent Latest Code Status on File [...] Relationship Healthcare Agent Relationshi p Communication Coty Pool [facility] Health Care Agent [phone] (Mobile) Healthcare Agents on File Name Relationship Healthcare Agent Relationshi p Communication Coty Pool [facility] Care Agent [phone] (Mobile) Healthcare Agents on File Name Relationship Healthcare Agent Relationshi p Communication Coty Pool [facility] Health Care Agent [phone] (Mobile) Healthcare Agents on File Name Relationship Healthcare Agent Relationshi p Communication Coty Pool [facility] Health Care Agent Healthcare Agents on File Name Relationship Healthcare Agent Relationshi p Communication Coty Pool [facility] Care Agent [phone] (Mobile) Latest Code Status on File [...] Relationship Healthcare Agent Relationshi p Communication Coty Pool [facility] Care Agent Latest Code Status [...] Healthcare Agent Relationshi p Communication Coty Lam [facility] Agent Healthcare Agents on File Name Relationship Healthcare Agent Relationshi p Communication Coty Lam [facility] Care Agent Latest Code Status on File [...] Documents on File Type Date Recorded Patient Media Producer Expl anation HealthCare Power of Medical Delivery Technician 11/17/2022 Advance Directive Response Recorded Date/ Time Advance Directives on File Yes Octob er 2022 1:18pm Living Will Yes July 12 1:18pm Power of Medical Delivery Technician Yes 2023 1:18pm Advance Directive Response Recorded Date/ Time Advance Directives on File Yes Octob er 2022 1:18pm Name of Medical Power of Medical Delivery Technician coty pool July 17, 2023 3:54am Living Will No July 17 3:54am Power of Medical Delivery Technician Yes July 17, 2023 3:54am Advance Directive Response Recorded Date/ Time Advance Directives on File No Novem 2022 11:30am Name of Medical Power of Medical Delivery Technician Coty juan August 04, 2023 11:30am Advance Directives Yes August 04, 2023 11:30am Living Will No August 05 1:58pm Power of Medical Delivery Technician Yes August 04, 2023 11:30am Name of Medical Power of Medical Delivery Technician coty pool July 17, 2023 2:54am Advance Directive Response Recorded Date/ Time Advance Directives on File No Novem 2022 11:30am Name of Medical Power of Medical Delivery Technician Coty Paul brewster isnereyda August 04, 2023 11:30am Advance Directives Yes August 04, 2023 11:30am Living Will Yes August 04 11:30am Power of Medical Delivery Technician Yes August 04, 2023 11:30am Name of Medical Power of Medical Delivery Technician coty marins July 17, 2023 2:54am Advance Directive Response Recorded Date/ Time Advance Directives on File No Decem 2022 12:00pm Name of Medical Power of Medical Delivery Technician Coty juan September 01, 2023 12:00pm Advance Directives Yes September 01, 2023 12:00pm Living Will Yes September 01 12:00pm Power of Medical Delivery Technician Yes September 01, 2023 12:00pm Name of Medical Power of Medical Delivery Technician coty pool July 17, 2023 2:54am Advance Directive Response Recorded Date/ Time Advance Directives on File No Brentgumaro 2023 2:24pm Name of Medical Power of Medical Delivery Technician Coty juan September 29, 2023 2:24pm Advance Directives Yes September 29, 2023 2:24pm Living Will No September 29 2:24pm Power of Medical Delivery Technician Yes September 29 2:24pm Name of Medical Power of Medical Delivery Technician coty pool July 17, 2023 2:54am Advance Directive Response Recorded Date/ Time Advance Directives on File No Reginojatin 2023 2:43pm Name of Medical Power of Medical Delivery Technician Coty juan November 24, 2023 2:43pm Advance Directives Yes October 2:43pm Living Will No November 24 024 2:43pm Power of Medical Delivery Technician Yes November 24, 2023 2:43pm Advance Directive Response Recorded Date/ Time Advance Directives on File No David 2023 3:43pm Name of Medical Power of Medical Delivery Technician Coty juan November 24, 2023 3:43pm Advance Directives Yes October 3:43pm Living Will No November 24 024 3:43pm Power of Medical Delivery Technician Yes November 24, 2023 3:43pm Advance Directive Response Recorded Date/ Time Advance Directives on File No December 22, 2023 2:40pm Name of Medical Power of Medical Delivery Technician Coty juan December 22, 2023 2:40pm Advance Directives Yes December 21 024 2:40pm Living Will No December 22, 2023 2:40pm Power of Medical Delivery Technician Yes December 21 2:40pm Advance Directive Response Recorded Date/ Time Advance Directives on File No January 19, 2024 2:29pm Name of Medical Power of Medical Delivery Technician Coty juan January 19, 2024 2:29pm Advance Directives Yes January 18, 2 024 2:29pm Living Will No January 19, 2024 2:29pm Power of Medical Delivery Technician Yes January 18 2:29pm Documents on File Type Date Recorded Patient Media Producer Expl anation Power of Medical Delivery Technician 03/29/2024 3:57 PM Power of Medical Delivery Technician Advance Directive Response Recorded Date/ Time Advance Directives on File No David [email or web address] 4:39pm Living Will No November 09 025 4:39pm Power of Medical Delivery Technician Yes November 09, 2024 4:39pm Name of Medical Power of Medical Delivery Technician Coty brewster yessica November 09, 2024 4:39pm Advance Directives Yes October 4:39pm Living Will Yes July 11 11:04am Power of Medical Delivery Technician Yes July 11, 2024 11:04am Name of Medical Power of Medical Delivery Technician Coty Poolcorbin July 11, 2024 11:04am Living Will No October 02 8:18pm Power of Medical Delivery Technician No October 02 025 8:18pm Advance Directive Response Recorded Date/ Time Advance Directives on File No December 07, 2024 3:48pm Living Will No December 07, 2024 3:48pm Do you have a Healthcare Pow er of Medical Delivery Technician? Yes December 07, 2024 3:48pm Name of Medical Power of Medical Delivery Technician Coty brewster saritanereyda December 07, 2024 3:48pm Advance Directives Yes December 07 025 3:48pm Living Will No October 02 8:18pm Do you have a Healthcare Pow er of Medical Delivery Technician? No October 02, 2024 8:18pm Advance Directive Response Recorded Date/ Time Advance Directives on File No January 04, 2025 3:10pm Living Will No January 04, 2025 3:10pm Do you have a Healthcare Pow er of Medical Delivery Technician? Yes January 04, 2025 3:10pm Name of Medical Power of Medical Delivery Technician Coty juan January 04, 2025 3:10pm Advance Directives Yes January 04 025 3:10pm Living Will No October 02 8:18pm Do you have a Healthcare Pow er of Medical Delivery Technician? No October 02, 2024 8:18pm Advance Directive Response Recorded Date/ Time Advance Directives on File No January 04, 2025 3:10pm Living Will No January 04, 2025 3:10pm Do you have a Healthcare Pow er of Medical Delivery Technician? Yes January 04, 2025 3:10pm Name of Medical Power of Medical Delivery Technician Coty brewster saritanereyda January 04, 2025 3:10pm Advance Directives Yes January 04 3:10pm Do you have a Healthcare Pow er of Medical Delivery Technician? Yes January 31, 2025 5:41pm Name of Medical Power of Medical Delivery Technician coty January 31, 2025 5:41pm Advance Directive Response Recorded Date/ Time Advance Directives on File No February [id number] 2:45pm Living Will No February 01, 2025 2: 45pm Do you have a Healthcare Power of Medical Delivery Technician? Yes February 01, 2025 2:45pm Name of Medical Power of Medical Delivery Technician Coty brewster saritanereyda February 01, 2025 2:45pm Advance Directives Yes February 01, 2025 2:45pm Do you have a Healthcare Power of Medical Delivery Technician? Yes January 31, 2025 5:41pm Name of Medical Power of Medical Delivery Technician coty January 31, 2025 5:41pm Advance Directive Response Recorded Date/ Time Advance Directives on File No March 08, 2025 3:20pm Living Will No March 08, 2025 3:20pm Do you have a Healthcare Pow er of Medical Delivery Technician? Yes March 08, 2025 3:20pm Name of Medical Power of Medical Delivery Technician Coty brewster saritanereyda March 08, 2025 3:20pm Advance Directives Yes March 08 3:20pm Do you have a Healthcare Pow er of Medical Delivery Technician? Yes January 31, 2025 5:41pm Name of Medical Power of Medical Delivery Technician coty January 31, 2025 5:41pm Advance Directive Response Recorded Date/ Time Advance Directives on File No April 05, 2025 2:04pm Living Will No April 05, 2025 2:04pm Do you have a Healthcare Pow er of Medical Delivery Technician? Yes April 05, 2025 2:04pm Name of Medical Power of Medical Delivery Technician Coty brewster yessica April 05, 2025 2:04pm Advance Directives Yes April 05 2:04pm Do you have a Healthcare Pow er of Medical Delivery Technician? Yes January 31, 2025 5:41pm Name of Medical Power of Medical Delivery Technician coty January 31, 2025 5:41pm Advance Directive Response Recorded Date/ Time Advance Directives on File No Augus t 2024 3:25pm Living Will No May 02, 2025 3:25pm Do you have a Healthcare Pow er of Medical Delivery Technician? Yes May 02, 2025 3:25pm Name of Medical Power of Medical Delivery Technician Coty juan May 02, 2025 3:25pm Advance Directives Yes May 02, 025 3:25pm Do you have a Healthcare Pow er of Medical Delivery Technician? Yes January 31, 2025 5:41pm Name of Medical Power of Medical Delivery Technician coty January 31, 2025 5:41pm Advance Directive Response Recorded Date/ Time Advance Directives on File No Mary [email or web address] 2:55pm Living Will No May 31 025 2:55pm Do you have a Healthcare Pow er of Medical Delivery Technician? Yes May 31, 2025 2:55pm Name of Medical Power of Medical Delivery Technician Coty juan May 31, 2025 2:55pm Advance Directives Yes May 2:55pm Reason for Referral Specialty Diagnoses / Procedures Referred By Katelyn carlson Referred To Contact Diagnoses Vitamin D deficiency, unspecified Salena Flores, TIP [address] [address] Referral ID Status Reason Start Date Expiration Date V isits Requested Visits Authorized [id number] Authorized 10/09/2022 09/26/2039 1 1 Specialty Diagnoses / Procedures Referred By Katelyn carlson Referred To Contact Physical Therapy Diagnoses Left shoulder pain, unspecified chronicity Upper back pain Salena Flores, TIP [address] [address] Referral ID Status Reason Start Date Expiration Date Visits Requested Visits Authorized [id number] Authorized Specialty Services Required 10/09/2022 04/07/2023 1 1 Specialty Diagnoses / Procedures Referred By Katelyn carlson Referred To Contact Radiation Oncology Diagnoses Multiple myeloma not having achieved remission (CMS/HCC) Procedures Rad Onc Treatment Planning Simulation Emanuel Guerra MD [address] [facility] [address] [place] [address] Referral ID Status Reason Start Date Expiration Date V isits Requested Visits Authorized [id number] Authorized 11/17/2022 05/29/2023 11 11 Specialty Diagnoses / Procedures Referred By Contac t Referred To Contact Radiology Diagnoses Multiple myeloma not having achieved remission (CMS/HCC) 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 [address] [place] [address] [facility] Referral ID Status Reason Start Date Expiration Date V isits Requested Visits Authorized [id number] Pending Review 02/03/2023 02/03/2024 1 1 Chief Complaint and Reason for Visit Chief Complaint ALF LAB WOR K Amb Documentation NEW - MULTIPLE MYELOMA (TRANSFER OF CARE) [facility] Reason for Visit Anemia DVT (deep venous thrombosis) Multiple myeloma Paraplegia Chief Complaint ALF LAB WOR K Amb Documentation NEW - MULTIPLE MYELOMA (TRANSFER OF CARE) [facility] urinary retention Reason for Visit Anemia DVT (deep venous thrombosis) Multiple myeloma Paraplegia Chief Complaint ALF LAB WOR K Amb Documentation NEW - MULTIPLE MYELOMA (TRANSFER OF CARE) urinary retention MULTIPLE MYELOMA 4WKS LABS [facility] Amb Documentation LABWORK Reason for Visit Anemia DVT (deep venous thrombosis) Multiple myeloma Paraplegia Anemia DVT (deep venous thrombosis) Multiple myeloma Paraplegia Chief Complaint ALF LAB WOR K Amb Documentation NEW - MULTIPLE MYELOMA (TRANSFER OF CARE) urinary retention MULTIPLE MYELOMA 4WKS LABS [facility] Amb Documentation LABWORK WOUND WOUND LABWORK Reason for Visit Anemia DVT (deep venous thrombosis) Multiple myeloma Paraplegia Anemia DVT (deep venous thrombosis) Multiple myeloma Paraplegia History of radiation therapy Non-healing surgical wound Multiple myeloma Paraplegia Chief Complaint ALF LAB WOR K Amb Documentation NEW - MULTIPLE MYELOMA (TRANSFER OF CARE) urinary retention MULTIPLE MYELOMA 4WKS LABS [facility] Amb Documentation LABWORK WOUND LABWORK WOUND WOUND Reason for Visit Anemia DVT (deep venous thrombosis) Multiple myeloma Paraplegia Anemia DVT (deep venous thrombosis) Multiple myeloma Paraplegia History of radiation therapy Non-healing surgical wound Multiple myeloma Paraplegia Chief Complaint ALF LAB WOR K Amb Documentation NEW - MULTIPLE MYELOMA (TRANSFER OF CARE) urinary retention MULTIPLE MYELOMA 4WKS LABS [facility] Amb Documentation LABWORK WOUND LABWORK WOUND WOUND ALF LAB WORK 4 WKS - LABS - [facility] (S.C) [facility] Reason for Visit Anemia DVT (deep venous thrombosis) Multiple myeloma Paraplegia Anemia DVT (deep venous thrombosis) Multiple myeloma Paraplegia History of radiation therapy Non-healing surgical wound Multiple myeloma Paraplegia Anemia DVT (deep venous thrombosis) Multiple myeloma Paraplegia Chief Complaint ALF LAB WOR K Amb Documentation NEW - MULTIPLE MYELOMA (TRANSFER OF CARE) urinary retention MULTIPLE MYELOMA 4WKS LABS [facility] Amb Documentation LABWORK WOUND LABWORK WOUND WOUND ALF LAB WORK 4 WKS - LABS - [facility] (S.C) WOUND WOUND WOUND 4 WKS - LABS - [facility] (S.C.) [facility] WOUND ALF LABWORK WOUND WOUND Reason for Visit Anemia [...] surgical wound Multiple myeloma Paraplegia Chief Complaint ALF LAB WOR K Amb Documentation NEW - MULTIPLE MYELOMA (TRANSFER OF CARE) urinary retention MULTIPLE MYELOMA 4WKS LABS [facility] Amb Documentation LABWORK WOUND LABWORK WOUND WOUND ALF LAB WORK 4 WKS - LABS - [facility] (S.C) WOUND WOUND WOUND 4 WKS - LABS - [facility] (S.C.) WOUND ALF LABWORK WOUND WOUND 4WKS LABS [facility] Reason for Visit Anemia DVT (deep [...] Paraplegia Chief Complaint MULTIPLE MYELOMA 4WKS LABS [facility] Amb Documentation LABWORK WOUND LABWORK WOUND WOUND ALF LAB WORK 4 WKS - LABS - [facility] (S.C) WOUND WOUND WOUND 4 WKS - LABS - [facility] (S.C.) WOUND ALF LABWORK WOUND WOUND 4WKS LABS [facility] WOUND WOUND 4 WKS - LABS - [facility] WOUND WOUND Reason for Visit Anemia [...] Multiple myeloma Paraplegia Chief Complaint WOUND WOUND ALF LAB WORK 4 WKS - LABS - [facility] (S.C) WOUND WOUND WOUND 4 WKS - LABS - [facility] (S.C.) WOUND ALF LABWORK WOUND WOUND 4WKS LABS [facility] WOUND WOUND 4 WKS - LABS - [facility] WOUND WOUND WOUND WOUND LABWORK Reason [...] surgical wound Multiple myeloma Paraplegia Chief Complaint ALF LAB WOR K 4 WKS - LABS - [facility] (S.C) WOUND WOUND WOUND 4 WKS - LABS - [facility] (S.C.) WOUND ALF LABWORK WOUND WOUND 4WKS LABS [facility] WOUND WOUND 4 WKS - LABS - [facility] WOUND WOUND WOUND LABWORK WOUND WOUND 4 WKS - LABS - [facility] Reason for Visit Anemia DVT (deep [...] wound Late effect of radiation Multiple myeloma [id number] Paraplegia Personal history of Methicillin resistant Staphylococcus aureus infection Soft tissue radionecrosis Anemia DVT (deep venous thrombosis) Multiple myeloma Paraplegia Chief Complaint 4 WKS - LABS - [facility] (S.C.) WOUND ALF LABWORK WOUND WOUND 4WKS LABS [facility] WOUND WOUND 4 WKS - LABS - [facility] WOUND WOUND WOUND LABWORK WOUND WOUND 4 WKS - LABS - [facility] WOUND ALF LAB WORK NON HEALING WOUND NON HEALING WOUND 4 WKS - LABS - [facility] Reason for Visit Anemia DVT (deep venous thrombosis) Multiple myeloma Paraplegia History of radiation therapy Non-healing surgical wound Multiple myeloma Paraplegia Anemia DVT (deep venous thrombosis) Multiple myeloma Paraplegia Anemia DVT (deep venous thrombosis) Multiple myeloma History of radiation therapy Non-healing surgical wound Multiple myeloma Paraplegia History of radiation therapy Non-healing surgical wound Late effect of radiation Multiple myeloma [id number] Paraplegia Personal history of Methicillin resistant Staphylococcus aureus infection Soft tissue radionecrosis Anemia DVT (deep venous thrombosis) Multiple myeloma Paraplegia History of radiation therapy Non-healing surgical wound Multiple myeloma Paraplegia Anemia DVT (deep venous thrombosis) Multiple myeloma Paraplegia Chief Complaint Admit Date INFECTED WOUNDS/TRANSAMINITIS July 102023 5:05pm INFECTED WOUNDS/TRANSAMINITIS July 282023 7:14am INFECTED WOUNDS/TRANSAMINITIS July 282023 7:48am F/U - LABS - [facility] August 17, 2024 8:35am FOLLOW UP August 31, 2024 1 :21pm 4 WKS - LABS - [facility] September 13, 2024 12:33pm October 02, 2024 6: 09pm 4 WKS - LABS - [facility] October 12, 2024 1 :40pm LABWORK October 20, 2024 2 :00pm 2 M F/U November 02, 2024 1 :26pm 4 WKS - LABS - [facility]/ZOMETA October 1:08pm LUMBAR SPINE November 21, 2024 2:00pm room 1 November 21, 2024 2:23pm 4 WKS - LABS - [facility] December 07, 2024 2:0 0pm Darzalex Fast[employer] [...] 2024 1:08pm Degenerative disc disease, lumbar Februa ry 2024 2:00pm Chief Complaint Admit Date FOLLOW UP August 31, 2024 1 :21pm 4 WKS - LABS - [facility] September 13, 2024 12:33pm October 02, 2024 6: 09pm 4 WKS - LABS - [facility] October 12, 2024 1 :40pm LABWORK October 20, 2024 2 :00pm 2 M F/U November 02, 2024 1 :26pm 4 WKS - LABS - MAZ[facility]/ZOMETA October 1:08pm LUMBAR SPINE November 21, 2024 2:00pm room 1 November 21, 2024 2:23pm 4 WKS - LABS - [facility] December 07, 2024 2:0 0pm Darzalex [employer] December 07, 2024 2:3 0pm ALF LAB WORK December 11, 2024 4 :00am [...] 2024 1:08pm Degenerative disc disease, lumbar Februa ry 2024 2:00pm Anemia December 07, 2024 2:0 0pm DVT (deep venous thrombosis) March 13th, 2025 2:00pm Multiple myeloma December 07, 2024 2:0 0pm Chief Complaint Admit Date 4 WKS - LABS - MAZIN September 13, 2024 12:33pm October 02, 2024 6: 09pm 4 WKS - LABS - MAZIN October 12, 2024 1 :40pm LABWORK October 20, 2024 2 :00pm 2 M F/U November 02, 2024 1 :26pm 4 WKS - LABS - MAZIN/ZOMETA October 1:08pm LUMBAR SPINE November 21, 2024 2:00pm room 1 November 21, 2024 2:23pm 4 WKS - LABS - MAZIN December 07, 2024 2:0 0pm ALF LAB WORK December 11, 2024 4 :00am 4 WKS - LABS - MAZIN January 04, 2025 1:0 1pm Darzalex FastPro [...] Admit Date 4 WKS - LABS - MAZIN October 12, 2024 1 :40pm LABWORK October 20, 2024 2 :00pm 2 M F/U November 02, 2024 1 :26pm 4 WKS - LABS - MAZIN/ZOMETA October 1:08pm LUMBAR SPINE November 21, 2024 2:00pm room 1 November 21, 2024 2:23pm 4 WKS - LABS - MAZIN December 07, 2024 2:0 0pm ALF LAB WORK December 11, 2024 4 :00am 4 WKS - LABS - MAZIN January 04, 2025 1:0 1pm zometa January 04, 2025 1:1 5pm EORDERS January 04, 2025 3:2 8pm abd pain, urinary symptoms January 31, 2025 4:05pm Reason for Visit Admit Date Anemia October 12, 2024 1 :40pm DVT (deep venous thrombosis) September 1:40pm Multiple myeloma October 12, 2024 1 :40pm Paraplegia October 12, 2024 1 :40pm Open wound of tissue overlying spine Fe [email or web address] 1:26pm Anemia November 09, 2024 1:08pm [...] Admit Date 4 WKS - LABS - MAZIN October 12, 2024 1 :40pm LABWORK October 20, 2024 2 :00pm 2 M F/U November 02, 2024 1 :26pm 4 WKS - LABS - MAZIN/ZOMETA October 1:08pm LUMBAR SPINE November 21, 2024 2:00pm room 1 November 21, 2024 2:23pm 4 WKS - LABS - MAZIN December 07, 2024 2:0 0pm ALF LAB WORK December 11, 2024 4 :00am 4 WKS - LABS - MAZIN January 04, 2025 1:0 1pm EORDERS January 04, 2025 3:2 8pm ALF LAB WORK January 11, 2025 5 :00am abd pain, urinary symptoms January 31, 2025 4:05pm 4 WKS - LABS - MAZIN/ZOMETA February 01, 2025 12:37pm zometa February 01, [...] 1 :26pm 4 WKS - LABS - MAZIN/ZOMETA October 1:08pm LUMBAR SPINE November 21, 2024 2:00pm room 1 November 21, 2024 2:23pm 4 WKS - LABS - MAZIN December 07, 2024 2:0 0pm ALF LAB WORK December 11, 2024 4 :00am 4 WKS - LABS - MAZIN January 04, 2025 1:0 1pm EORDERS January 04, 2025 3:2 8pm ALF LAB WORK January 11, 2025 5 :00am abd pain, urinary symptoms January 31, 2025 4:05pm 4 WKS - LABS - MAZIN/ZOMETA February 01, 2025 12:37pm zometa February 01, 2025 12:45p m ALF LAB WORK February 20, 2025 4:0 0am Reason for Visit Admit Date Open wound of tissue overlying spine Oct [...] 2025 12:37p m Chief Complaint Admit Date 4 WKS - LABS - MAZIN/ZOMETA October 1:08pm LUMBAR SPINE November 21, 2024 2:00pm room 1 November 21, 2024 2:23pm 4 WKS - LABS - MAZIN December 07, 2024 2:0 0pm ALF LAB WORK December 11, 2024 4 :00am 4 WKS - LABS - MAZIN January 04, 2025 1:0 1pm EORDERS January 04, 2025 3:2 8pm ALF LAB WORK January 11, 2025 5 :00am abd pain, urinary symptoms January 31, 2025 4:05pm 4 WKS - LABS - MAZIN/ZOMETA February 01, 2025 12:37pm ALF LAB WORK February 20, 2025 4:0 0am ALF LAB WORK February 28, 2025 4:0 0am 4 WKS - LABS - MAZIN March 08, 2025 1:06 pm zometa March 08, 2025 1:15 pm Reason for Visit Admit Date Anemia November 09, 2024 1:08pm DVT (deep [...] Multiple myeloma February 01, 2025 12:37p m Anemia March 08, 2025 1:06 pm DVT (deep venous thrombosis) March 08, 2025 1:06pm Multiple myeloma March 08, 2025 1:06 pm Chief Complaint Admit Date 2 M F/U November 02, 2024 1 :26pm 4 WKS - LABS - MAZIN/ZOMETA October 1:08pm LUMBAR SPINE November 21, 2024 2:00pm room 1 November 21, 2024 2:23pm 4 WKS - LABS - MAZIN December 07, 2024 2:0 0pm ALF LAB WORK December 11, 2024 4 :00am 4 WKS - LABS - MAZIN January 04, 2025 1:0 1pm EORDERS January 04, 2025 3:2 8pm ALF LAB WORK January 11, 2025 5 :00am abd pain, urinary symptoms January 31, 2025 4:05pm 4 WKS - LABS - MAZIN/ZOMETA February 01, 2025 12:37pm zometa February 01, 2025 12:45p m ALF LAB WORK February 20, 2025 4:0 0am ALF LAB WORK February 28, 2025 4:0 0am Chief Complaint Admit Date 4 WKS - LABS - MAZIN December 07, 2024 2:0 0pm ALF LAB WORK December 11, 2024 4 :00am 4 WKS - LABS - MAZIN January 04, 2025 1:0 1pm EORDERS January 04, 2025 3:2 8pm ALF LAB WORK January 11, 2025 5 :00am abd pain, urinary symptoms January 31, 2025 4:05pm 4 WKS - LABS - MAZIN/ZOMETA February 01, 2025 12:37pm ALF LAB WORK February 20, 2025 4:0 0am ALF LAB WORK February 28, 2025 4:0 0am 4 WKS - LABS - MAZIN March 08, 2025 1:06 pm 4WKS LABS MAZIN April 05, 2025 12:2 6pm zometa April 05, 2025 12:3 0pm Reason for Visit Admit Date Anemia December 07, 2024 2:0 0pm DVT [...] Multiple myeloma February 01, 2025 12:37p m Anemia March 08, 2025 1:06 pm DVT (deep venous thrombosis) March 08, 2025 1:06pm Multiple myeloma March 08, 2025 1:06 pm Anemia April 05, 2025 12:2 6pm DVT (deep venous thrombosis) April 05, 2025 12:26pm Multiple myeloma April 05, 2025 12:2 6pm Chief Complaint Admit Date 4 WKS - LABS - MAZIN January 04, 2025 1:0 1pm EORDERS January 04, 2025 3:2 8pm ALF LAB WORK January 11, 2025 5 :00am abd pain, urinary symptoms January 31, 2025 4:05pm 4 WKS - LABS - MAZIN/ZOMETA February 01, 2025 12:37pm ALF LAB WORK February 20, 2025 4:0 0am ALF LAB WORK February 28, 2025 4:0 0am 4 WKS - LABS - MAZIN March 08, 2025 1:06 pm 4WKS LABS MAZIN April 05, 2025 12:2 6pm DEBILITY, RX HERE May 01, 2025 2:0 0pm 4 WKS - LABS - MAZIN May 02, 2025 1:1 3pm zometa May 02, 2025 1:1 5pm Reason for Visit Admit Date Abdominal bloating January 04, 2025 1:0 1pm Anemia January 04, 2025 1:0 1pm DVT (deep venous thrombosis) January 04, 2025 1:01pm Multiple myeloma January 04, 2025 1:0 1pm Anemia February 01, 2025 12:37p m DVT (deep venous thrombosis) February 01 12:37pm Multiple myeloma February 01, 2025 12:37p m Anemia March 08, 2025 1:06 pm DVT (deep venous thrombosis) March 08, 2025 1:06pm Multiple myeloma March 08, 2025 1:06 pm Anemia April 05, 2025 12:2 6pm DVT (deep venous thrombosis) April 05, 2025 12:26pm Multiple myeloma April 05, 2025 12:2 6pm Anemia May 02, 2025 1:1 3pm DVT (deep venous thrombosis) May 02, 2025 1:13pm Multiple myeloma May 02, 2025 1:1 3pm Chief Complaint Admit Date ALF LAB WORK January 11, 2025 5 :00am abd pain, urinary symptoms January 31, 2025 4:05pm 4 WKS - LABS - MAZIN/ZOMETA February 01, 2025 12:37pm ALF LAB WORK February 20, 2025 4:0 0am ALF LAB WORK February 28, 2025 4:0 0am 4 WKS - LABS - MAZIN March 08, 2025 1:06 pm 4WKS LABS MAZ[facility] April 05, 2025 12:2 6pm 4 WKS - LABS - MAZIN May 02, 2025 1:1 3pm zometa May 02, 2025 1:1 5pm DEBILITY, RX HERE May 09, 2025 2: 30pm 6 M FU May 10, 2025 1: 27pm Reason for Visit Admit Date Anemia February 01, 2025 12:37p m DVT (deep venous thrombosis) February 01 12:37pm Multiple myeloma February 01, 2025 12:37p m Anemia March 08, 2025 1:06 pm DVT (deep venous thrombosis) March 08, 2025 1:06pm Multiple myeloma March 08, 2025 1:06 pm Anemia April 05, 2025 12:2 6pm DVT (deep venous thrombosis) April 05, 2025 12:26pm Multiple myeloma April 05, 2025 12:2 6pm Anemia May 02, 2025 1:1 3pm DVT (deep venous thrombosis) May 02, 2025 1:13pm Multiple myeloma May 02, 2025 1:1 3pm Chief Complaint Admit Date abd pain, urinary symptoms January 31, 2025 4:05pm 4 WKS - LABS - MAZIN/ZOMETA February 01, 2025 12:37pm ALF LAB WORK February 20, 2025 4:0 0am ALF LAB WORK February 28, 2025 4:0 0am 4 WKS - LABS - MAZIN March 08, 2025 1:06 pm 4WKS LABS MA[facility] April 05, 2025 12:2 6pm 4 WKS - LABS - MAZIN May 02, 2025 1:1 3pm 6 M FU May 10, 2025 1: 27pm DEBILITY, RX HERE May 29, 2025 2:00pm 4 WKS - LABS - MAZIN May 31, 2025 12:54pm zometa May 31, 2025 1:00pm Reason for Visit Admit Date Anemia February 01, 2025 12:37p m DVT (deep venous thrombosis) February 01 12:37pm Multiple myeloma February 01, 2025 12:37p m Anemia March 08, 2025 1:06 pm DVT (deep venous thrombosis) March 08, 2025 1:06pm Multiple myeloma March 08, 2025 1:06 pm Anemia April 05, 2025 12:2 6pm DVT (deep venous thrombosis) April 05, 2025 12:26pm Multiple myeloma April 05, 2025 12:2 6pm Anemia May 02, 2025 1:1 3pm DVT (deep venous thrombosis) May 02, 2025 1:13pm Multiple myeloma May 02, 2025 1:1 3pm Open wound of tissue overlying spine Aug ust 2024 1:27pm Chief Complaint Admit Date ALF LAB WORK February 28, 2025 4:0 0am 4 WKS - LABS - MAZIN March 08, 2025 1:06 pm 4WKS LABS MAZ[facility] April 05, 2025 12:2 6pm 4 WKS - LABS - MAZIN May 02, 2025 1:1 3pm 6 M FU May 10, 2025 1: 27pm 4 WKS - LABS - MAZIN May 31, 2025 12:54pm DEBILITY, RX HERE June 27, 2025 2: 00pm 4 WKS - LABS - MAZIN June 28, 2025 1: 06pm zometa June 28, 2025 1: 15pm Reason for Visit Admit Date Anemia March 08, 2025 1:06 pm DVT (deep venous thrombosis) March 08, 2025 1:06pm Multiple myeloma March 08, 2025 1:06 pm Anemia April 05, 2025 12:2 6pm DVT (deep venous thrombosis) April 05, 2025 12:26pm Multiple myeloma April 05, 2025 12:2 6pm Anemia May 02, 2025 1:1 3pm DVT (deep venous thrombosis) May 02, 2025 1:13pm Multiple myeloma May 02, 2025 1:1 3pm Open wound of tissue overlying spine Aug ust 2024 1:27pm Anemia May 31, 2025 12:54pm DVT (deep venous thrombosis) May 312024 12:54pm Multiple myeloma May 31, 2025 12:54pm Anemia June 28, 2025 1: 06pm DVT (deep venous thrombosis) June 1:06pm Multiple myeloma June 28, 2025 1: 06pm Additional Source Comments (unrecognized sect ion and content) No Status Records FoundNo Status Records FoundNo Status Records FoundNo Status Records FoundNo Status Records FoundNo Status Records FoundNo Status Records FoundNo Status Records FoundNo Status Records FoundNo Status Records FoundNo Status Records FoundNo Status Records Found INFORMATION SOURCE (unrecogn ized section and content) DATE CREATED AUTHOR 01/24/2021 [facility] DATE CREATED AUTHOR AUTHOR'S ORGANIZ ATION 08/18/2022 [facility] DATE CREATED AUTHOR AUTHOR'S ORGANIZ ATION 11/29/2022 [facility] DATE CREATED AUTHOR AUTHOR'S ORGANIZ ATION 12/24/[address] [facility] DATE CREATED AUTHOR AUTHOR'S ORGANIZ ATION 01/27/2023 [facility] DATE CREATED AUTHOR AUTHOR'S ORGANIZ ATION 04/06/2023 [facility] DATE CREATED AUTHOR AUTHOR'S ORGANIZ ATION 07/10/2024 [facility] DATE CREATED AUTHOR AUTHOR'S ORGANIZ ATION 11/12/2024 [facility] DATE CREATED AUTHOR AUTHOR'S ORGANIZ ATION 02/04/2025 [facility] DATE CREATED AUTHOR AUTHOR'S ORGANIZ ATION 03/13/2025 [facility] DATE CREATED AUTHOR AUTHOR'S ORGANIZ ATION 03/21/2025 [facility] DATE CREATED AUTHOR AUTHOR'S ORGANIZ ATION 07/17/2025 [facility] Reason for Visit (unrecogniz ed section and [...] Comments Back Pain Upper back between s [facility] Specialty Diagnoses / Procedures Referred By Katelyn t Referred To Contact Neurosurgery Diagnoses Upper back pain Salena Flores, TIP [address] [address] [facility] Neurosurgery [address] [address] Referral ID Status Reason Start Date Expiration Date Visits Requested Visits Authorized [id number] Authorized Specialty Services Required 05/19/2022 11/15/2022 1 [...] t Referred To Contact Diagnoses Cord compression ([facility]) Weakness Procedures Fahad Ireland MD [address] [place] [address] [facility] [address] [place] [address] Referral ID Status Reason Start Date Expiration Date Visits Re quested Visits Authorized [id number] 1 1 Reason Comments Consult Spinal mets Reason Comments Post-op Problem Patient had back myles madhavi at [facility]. Facility attempted to take stables out today but felt wound did not appear to be healing appropriately and had a lot of drainage. Patient was advised to come to [facility] not [facility]. Specialty Diagnoses / Procedures Referred By Contac t Referred To Contact Diagnoses Infected wound Procedures Blade Gan DO [address] [facility] [address] [place] [address] [facility] [address] [place] [address] Referral ID Status Reason Start Date Expiration Date Visits Re quested Visits Authorized [id number] 1 1 Reason Comments Post-op Problem States [...] Gonsales DO [address] [place] [address] 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) Cord compression (CMS/HCC) Procedures CT Bx and Asp Bone Marrow Nia Knight MD [address] [place] [address] [facility] [place] Referral ID Status Reason Start Date Expiration Date V isits Requested Visits Authorized [id number] Authorized 01/20/2023 07/19/2023 1 1 Reason Comments Follow-up Multiple myeloma Reason Comments Multiple Myeloma Reason Comments Wound Care Reason Comments Dressing Change Reason Comments Appointment Reason Comments Radiology US Specialty Diagnoses / Procedures Referred By Katelyn carlson Referred To Contact US IMAGING Diagnoses Benign prostatic hyperplasia with urinary retention Procedures US KIDNEY/BLADDER US RETROPERITONEAL REAL TIME W/IMAGE COMPLETE Ric Souza MD [address] [place] [address] Phone: tel: fax: [place] [phone] Referral ID Status Reason Start Date Expiration Date V isits Requested Visits Authorized [id number] Closed Auto-Generate d Referral 11/10/2024 12/10/2025 1 1 Reason Comments Urinary Retention Reason Comments Benign prostatic hyperplasia with urinar y retention Reason Comments Cystoscopy-1 Reason Comments OT Discharge OT EVAL Specialty Diagnoses / Procedures Referred By Katelyn carlson Referred To Contact Occupational Therapy / OCCUPATIONAL THERAPY Diagnoses Driving rehabilitation Spine surgery Wedge compression fracture of second thoracic vertebrae Patient has orders. Procedures OCCUPATIONAL THERAPY EVAL HIGH COMPLEX 60 MINS NEW RS OT COMM REINTEGRATION Blade Milner, [address] [facility] [place] [address] Phone: tel: fax: Leticia Bowie OT/L Referral ID Status Reason Start Date Expiration Date V isits Requested Visits Authorized [id number] Authorized 09/27/2024 09/26/2025 99 99 Ordered Prescriptions (unrec ognized section and content) [...] Care Teams (unrecognized sec tion and content) Wall Taper Helper Relationship Specialty Start Date End Date Salena Flores NP [address] [place] [phone] PCP - General Family Medicine 05/30/21 Wall Taper Helper Relationship Specialty Start Date End Date Salena Flores NP [address] [phone] PCP - General Family Medicine 05/30/21 Wall Taper Helper Relationship Specialty Start Date End Date Salena Flores NP [address] [place] [phone] PCP - General Family Medicine 05/30/21 Wall Taper Helper Relationship Specialty Start Date End Date Salena Flores NP [address] [place] [phone] PCP - General Family Medicine 05/30/21 Wall Taper Helper Relationship Specialty Start Date End Date Salena Flores NP [address] [place] [phone] PCP - General Family Medicine 05/30/21 Wall Taper Helper Relationship Specialty Start Date End Date Salena Flores NP [address] [place] [phone] PCP - General Family Medicine 05/30/21 Wall Taper Helper Relationship Specialty Start Date End Date Salena Flores NP [address] [place] [phone] PCP - General Family Medicine 05/30/21 Wall Taper Helper Relationship Specialty Start Date End Date Salena Flores NP [address] [place] [phone] PCP - General Family Medicine 05/30/21 Wall Taper Helper Relationship Specialty Start Date End Date Salena Flores NP [address] [place] [phone] PCP - General Family Medicine 05/30/21 Wall Taper Helper Relationship Specialty Start Date End Date Salena Flores NP [address] [phone] PCP - General Family Medicine 05/30/21 Wall Taper Helper Relationship Specialty Start Date End Date Salena Flores NP [address] [place] [phone] PCP - General Family Medicine 05/30/21 Wall Taper Helper Relationship Specialty Start Date End Date Salena Flores NP [address] [place] [phone] PCP - General Family Medicine 05/30/21 Wall Taper Helper Relationship Specialty Start Date End Date Salena Flores NP [address] [place] [phone] PCP - General Family Medicine 05/30/21 Wall Taper Helper Relationship Specialty Start Date End Date Salena Flores NP [address] [place] [phone] PCP - General Family Medicine 05/30/21 Wall Taper Helper Relationship Specialty Start Date End Date Salena Flores NP [address] [place] [phone] PCP - General Family Medicine 05/30/21 Wall Taper Helper Relationship Specialty Start Date End Date Salena Flores NP [address] [place] [phone] PCP - General Family Medicine 05/30/21 Wall Taper Helper Relationship Specialty Start Date End Date Salena Flores NP [address] [place] [phone] PCP - General Family Medicine 05/30/21 Wall Taper Helper Relationship Specialty Start Date End Date Salena Flores NP [address] [place] [phone] PCP - General Family Medicine 05/30/21 Wall Taper Helper Relationship Specialty Start Date End Date Salena Flores NP [address] [place] [phone] PCP - General Family Medicine 05/30/21 Wall Taper Helper Relationship Specialty Start Date End Date Salena Flores NP [address] [place] [phone] PCP - General Family Medicine 05/30/21 Wall Taper Helper Relationship Specialty Start Date End Date Salena Flores NP [address] [place] [phone] PCP - General Family Medicine 05/30/21 Wall Taper Helper Relationship Specialty Start Date End Date Salena Flores NP [address] [place] [phone] PCP - General Family Medicine 05/30/21 Wall Taper Helper Relationship Specialty Start Date End Date Salena Flores NP [address] [place] [phone] PCP - General Family Medicine 05/30/21 Wall Taper Helper Relationship Specialty Start Date End Date Salena Flores NP [address] [place] [phone] PCP - General Family Medicine 05/30/21 Wall Taper Helper Relationship Specialty Start Date End Date Salena Flores NP [address] [phone] PCP - General Family Medicine 05/30/21 Wall Taper Helper Relationship Specialty Start Date End Date Salena Flores APRN-MERCHANDISING DIRECTOR [address] [phone] PCP - General Certified Nurse Practitioner 01/06/23 Renuka Addison MD [address] [place] [address] Referring Provider Hematology 11/23/22 Taylor Jeff, personal lines insurance advisorMilk Tanker Driver Transplant 11/27/22 Gisel Wolf MD [address] [place] [address] Transplant Physician Transplant 11/27/22 Wall Taper Helper Relationship Specialty Start Date End Date Salena Flores NP [address] [place] [phone] PCP - General Family Medicine 05/30/21 Wall Taper Helper Relationship Specialty Start Date End Date Salena Flores NP [address] [place] [phone] PCP - General Family Medicine 05/30/21 Wall Taper Helper Relationship Specialty Start Date End Date Salena Flores NP [address] [phone] PCP - General Family Medicine 05/30/21 Wall Taper Helper Relationship Specialty Start Date End Date Salena Flores APRN-MERCHANDISING DIRECTOR [address] [place] [phone] PCP - General Certified Nurse Practitioner 01/06/23 Renuka Addison MD [address] [place] [place] [address] Referring Provider Hematology 11/23/22 Taylor Jeff, personal lines insurance advisorMilk Tanker Driver Transplant 11/27/22 Gisel Wolf MD [address] [place] [address] Transplant Physician Transplant 11/27/22 Team Status: Inactive [...] Iraida Balderas MD Primary Care Provider Active [facility] Attending Provider Active Wall Taper Helper Relationship Specialty Start Date End Date Salena Flores, OFFSET PROOF PRESS OPERATOR-MERCHANDISING DIRECTOR [address] [phone] PCP - General Certified Nurse Practitioner 01/06/23 Renuka Addison MD [address] [place] [address] Referring Provider Hematology 11/23/22 Taylor Jeff, personal lines insurance advisorMilk Tanker Driver Transplant 11/27/22 Gisel Wolf MD [address] [place] [address] Transplant Physician Transplant 11/27/22 Jenn Perez, [facility] [address] [place] [address] Oncologist Medical Oncology 09/08/23 Team Status: Inactive Member Role Status Dates Dr. Iraida Balderas MD Primary Care Provider, Referrin g Provider Active Zayda Hanson MANAGER BUSINESS, MANAGER BUSINESS-C Attending Provider Active Team Status: Active Member Role Status Dates Dr. Iraida Balderas MD Primary Care Provider Active Dr. Te Shah MD Other Provider Active Dr. Kofi Barboza MD Attending Provider, Referring Rosa Elena ramirez Active Wall Taper Helper Relationship Specialty Start Date End Date Blade Milner DO [address] [place] [phone] PCP - General Family Medicine 03/08/24 [place] [address] [place] [phone] Referring Provider Hematology 11/23/22 Taylor Jeff, personal lines insurance advisorMilk Tanker Driver Transplant 11/27/22 Gisel Wolf MD [facility] [place] [address] [place] [address] Transplant Physician Transplant 11/27/22 Jenn Perez [facility] [address] [place] [address] Oncologist Medical Oncology 09/08/23 Blade Milner DO [address] [place] [phone] Family Medicine 03/08/24 Wall Taper Helper Relationship Specialty Start Date End Date Blade Milner DO [address] [place] [phone] (Work) PCP - General Family Medicine 03/22/24 Wall Taper Helper Relationship Specialty Start Date End Date Blade Milner DO [address] [place] [phone] (Work) PCP - General Family Medicine 03/22/24 Wall Taper Helper Relationship Specialty Start Date End Date Blade Milner DO [address] [place] [address] PCP - General Family Medicine 03/22/24 Wall Taper Helper Relationship Specialty Start Date End Date Blade Milner DO [address] [place] [address] PCP - General Family Medicine 03/22/24 Wall Taper Helper Relationship Specialty Start Date End Date Blade Milner DO [address] [place] [address] PCP - General Family Medicine 03/22/24 Wall Taper Helper Relationship Specialty Start Date End Date Blade Milner DO [address] [place] [address] PCP - General Family Medicine 03/22/24 Wall Taper Helper Relationship Specialty Start Date End Date Blade Milner DO [address] [place] [address] PCP - General Family Medicine 03/22/24 Team [...] 2024 End: August 17, 2024 Zayda Hanson MANAGER BUSINESS, MANAGER BUSINESS-C Attending Provider Active Start: August 17, 2024 [...] October 12, 2024 End: October 12, 2024 Zaydageorgie Hanson MANAGER BUSINESS, MANAGER BUSINESS-C Attending Provider Active Start: October 12, 2024 [...] November 09, 2024 End: November 09, 2024 Zaydageorgie Hanson MANAGER BUSINESS, MANAGER BUSINESS-C Attending Provider Active Start: November 09, 2024 [...] 04, 2025 End: January 04, 2025 Zayda Hanson MANAGER BUSINESS, MANAGER BUSINESS-C Attending Provider Active Start: January 04, 2025 [...] 2025 End: January 04, 2025 Zayda Valentin MANAGER BUSINESS, MANAGER BUSINESS-C Attending Provider Active Start: January 04, 2025 End: January 04, 2025 Zayda Valentin MANAGER BUSINESS, MANAGER BUSINESS-C Referring Provider Active Start: January 04, 2025 [...] 01, 2025 End: February 01, 2025 Zayda Valentin MANAGER BUSINESS, MANAGER BUSINESS-C Attending Provider Active Start: February 01, 2025 [...] February 20, 2025 End: February 20, 2025 Team Status: Inactive Member Role Status Dates Dr. Blade Milner DO Primary Care Provider Active Start: February 28, 2025 End: February 28, 2025 Dr. Blade NULL MD Attending Provider Active Start: February 28, 2025 End: February 28, 2025 Dr. Blade NULL MD Referring Provider Active Start: February 28, 2025 End: February 28, 2025 Team Status: Inactive Member Role Status Dates Dr. Blade Milner DO Primary Care Provider Active Start: March 08, 2025 End: March 08, 2025 Dr. Blade Milner DO Referring Provider Active Start: March 08, 2025 End: March 08, 2025 Zayda Hanson MANAGER BUSINESS, MANAGER BUSINESS-C Attending Provider Active Start: March 08, 2025 End: March 08, 2025 Team Status: Active Member Role Status Dates Dr. Jenn Perez MD Attending Provider Active Start: March 08, 2025 Dr. Jenn Perez MD Referring Provider Active Start: March 08, 2025 Dr. Iraida Balderas MD Primary Care Provider Active Start: March 08, 2025 Wall Taper Helper Relationship Specialty Start Date End Date Blade Milner DO [address] [place] [id number] PCP - General Family Medicine 03/08/24 Renuka Addison MD Referring Provider Hematology 11/23/22 Taylor Jeff, personal lines insurance advisorMilk Tanker Driver Transplant 11/27/22 Gisel Wolf MD [address] [place] [address] Transplant Physician Transplant 11/27/22 Jenn Perez MB [facility] [address] [place] [address] Oncologist Medical Oncology 09/08/23 Blade Milner DO [address] [place] [id number] Family Medicine 03/08/24 Team Status: Active Member Role/Relationship Status Dates Dr. Blade Milner DO Primary Care Provider Active Team Status: Inactive Member Role/Relationship Status Dates Dr. Blade Milner DO Primary Care Provider Active Start: December 07, 2024 End: December 07, 2024 Dr. Blade Milner DO Referring Provider Active Start: December 07, 2024 End: December 07, 2024 Dr. Jenn Perez MD Attending Provider Active Start: December 07, 2024 End: December 07, 2024 Team Status: Inactive Member Role/Relationship Status Dates Dr. Blade Milner DO Primary Care Provider Active Start: December 11, 2024 End: December 11, 2024 Dr. Blade NULL MD Attending Provider Active Start: December 11, 2024 End: December 11, 2024 Dr. Blade NULL MD Referring Provider Active Start: December 11, 2024 End: December 11, 2024 Team Status: Inactive Member Role/Relationship Status Dates Dr. Blade Milner DO Primary Care Provider Active Start: January 04, 2025 End: January 04, 2025 Dr. Blade Milner DO Referring Provider Active Start: January 04, 2025 End: January 04, 2025 Zayda Hanson MANAGER BUSINESS, MANAGER BUSINESS-C Attending Provider Active Start: January 04, 2025 End: January 04, 2025 Team Status: Inactive Member Role/Relationship Status Dates Dr. Blade Milner DO Primary Care Provider Active Start: January 04, 2025 End: January 04, 2025 Zayda Valentin MANAGER BUSINESS, MANAGER BUSINESS-C Attending Provider Active Start: January 04, 2025 End: January 04, 2025 Zayda Valentin MANAGER BUSINESS, MANAGER BUSINESS-C Referring Provider Active Start: January 04, 2025 End: January 04, 2025 Team Status: Inactive Member Role/Relationship Status Dates Dr. Blaed Milner DO Primary Care Provider Active Start: January 11, 2025 End: January 11, 2025 Dr. Blade NULL MD Attending Provider Active Start: January 11, 2025 End: January 11, 2025 Team Status: Inactive Member Role/Relationship Status Dates Dr. Blade Milner DO Primary Care Provider Active Start: January 31, 2025 End: January 31, 2025 Dr. Marleni Newman DO Attending Provider Active S tart: January 31, 2025 End: January 31, 2025 Dr. Marleni Newman DO Emergency Provider Active S tart: January 31, 2025 End: January 31, 2025 Team Status: Inactive Member Role/Relationship Status Dates Dr. Blade Milner DO Primary Care Provider Active Start: February 01, 2025 End: February 01, 2025 Dr. Blade Milner DO Referring Provider Active Start: February 01, 2025 End: February 01, 2025 Zayda Valentin MANAGER BUSINESS, MANAGER BUSINESS-C Attending Provider Active Start: February 01, 2025 End: February 01, 2025 Team Status: Inactive Member Role/Relationship Status Dates Dr. Blade Milner DO Primary Care Provider Active Start: February 20, 2025 End: February 20, 2025 Dr. Blade NULL MD Attending Provider Active Start: February 20, 2025 End: February 20, 2025 Dr. Blade NULL MD Referring Provider Active Start: February 20, 2025 End: February 20, 2025 Team Status: Inactive Member Role/Relationship Status Dates Dr. Blade Milner DO Primary Care Provider Active Start: February 28, 2025 End: February 28, 2025 Dr. Blade NULL MD Attending Provider Active Start: February 28, 2025 End: February 28, 2025 Dr. Blade NULL MD Referring Provider Active Start: February 28, 2025 End: February 28, 2025 Team Status: Inactive Member Role/Relationship Status Dates Dr. Blade Milner DO Primary Care Provider Active Start: March 08, 2025 End: March 08, 2025 Dr. Blade Milner DO Referring Provider Active Start: March 08, 2025 End: March 08, 2025 Zayda Valentin MANAGER BUSINESS, MANAGER BUSINESS-C Attending Provider Active Start: March 08, 2025 End: March 08, 2025 Team Status: Inactive Member Role/Relationship Status Dates Dr. Blade Milner DO Primary Care Provider Active Start: April 05, 2025 End: April 05, 2025 Dr. Blade Milner DO Referring Provider Active Start: April 05, 2025 End: April 05, 2025 Dr. Jenn Perez MD Attending Provider Active Start: April 05, 2025 End: April 05, 2025 Team Status: Active Member Role/Relationship Status Dates Dr. Jenn Perez MD Attending Provider Active Start: April 05, 2025 Dr. Jenn Perez MD Referring Provider Active Start: April 05, 2025 Dr. Iraida Balderas MD Primary Care Provider Active Start: April 05, 2025 Team Status: Inactive Member Role/Relationship Status Dates Dr. Blade Milner DO Primary Care Provider Active Start: January 04, 2025 End: January 04, 2025 Dr. Blade Milner DO Referring Provider Active Start: January 04, 2025 End: January 04, 2025 Zayda Valentin MANAGER BUSINESS, MANAGER BUSINESS-C Attending Provider Active Start: January 04, 2025 End: January 04, 2025 Team Status: Inactive Member Role/Relationship Status Dates Dr. Blade Milner DO Primary Care Provider Active Start: January 04, 2025 End: January 04, 2025 Zayda Valentin MANAGER BUSINESS, MANAGER BUSINESS-C Attending Provider Active Start: January 04, 2025 End: January 04, 2025 Zayda Valentin MANAGER BUSINESS, MANAGER BUSINESS-C Referring Provider Active Start: January 04, 2025 End: January 04, 2025 Team Status: Inactive Member Role/Relationship Status Dates Dr. Blade Milner DO Primary Care Provider Active Start: January 11, 2025 End: January 11, 2025 Dr. Blade NULL MD Attending Provider Active Start: January 11, 2025 End: January 11, 2025 Team Status: Inactive Member Role/Relationship Status Dates Dr. Blade Milner DO Primary Care Provider Active Start: January 31, 2025 End: January 31, 2025 Dr. Marlnei Newman DO Attending Provider Active S tart: January 31, 2025 End: January 31, 2025 Dr. Marleni Newman DO Emergency Provider Active S tart: January 31, 2025 End: January 31, 2025 Team Status: Inactive Member Role/Relationship Status Dates Dr. Blade Milner DO Primary Care Provider Active Start: February 01, 2025 End: February 01, 2025 Dr. Blade Milner DO Referring Provider Active Start: February 01, 2025 End: February 01, 2025 Zaydageorgie Hanson MANAGER BUSINESS, MANAGER BUSINESS-C Attending Provider Active Start: February 01, 2025 End: February 01, 2025 Team Status: Inactive Member Role/Relationship Status Dates Dr. Blade Milner DO Primary Care Provider Active Start: February 20, 2025 End: February 20, 2025 Dr. Blade NULL MD Attending Provider Active Start: February 20, 2025 End: February 20, 2025 Dr. Blade NULL MD Referring Provider Active Start: February 20, 2025 End: February 20, 2025 Team Status: Inactive Member Role/Relationship Status Dates Dr. Blade Milner DO Primary Care Provider Active Start: February 28, 2025 End: February 28, 2025 Dr. Blade NULL MD Attending Provider Active Start: February 28, 2025 End: February 28, 2025 Dr. Blade NULL MD Referring Provider Active Start: February 28, 2025 End: February 28, 2025 Team Status: Inactive Member Role/Relationship Status Dates Dr. Blade Milner DO Primary Care Provider Active Start: March 08, 2025 End: March 08, 2025 Dr. Blade Milner DO Referring Provider Active Start: March 08, 2025 End: March 08, 2025 Zayda Hanson MANAGER BUSINESS, MANAGER BUSINESS-C Attending Provider Active Start: March 08, 2025 End: March 08, 2025 Team Status: Inactive Member Role/Relationship Status Dates Dr. Blade Milner DO Primary Care Provider Active Start: April 05, 2025 End: April 05, 2025 Dr. Blade Milner DO Referring Provider Active Start: April 05, 2025 End: April 05, 2025 Dr. Jenn Perez MD Attending Provider Active Start: April 05, 2025 End: April 05, 2025 Team Status: Active Member Role/Relationship Status Dates Dr. Blade Milner DO Primary Care Provider Active Start: May 01, 2025 Dr. Blade Milner DO Attending Provider Active Start: May 01, 2025 Dr. Blade Milner DO Referring Provider Active Start: May 01, 2025 Team Status: Inactive Member Role/Relationship Status Dates Dr. Blade Milner DO Primary Care Provider Active Start: May 02, 2025 End: May 02, 2025 Dr. Blade Milner DO Referring Provider Active Start: May 02, 2025 End: May 02, 2025 Dr. Jenn Perez MD Attending Provider Active Start: May 02, 2025 End: May 02, 2025 Team Status: Active Member Role/Relationship Status Dates Dr. Jenn Perez MD Attending Provider Active Start: May 02, 2025 Dr. Jenn Perez MD Referring Provider Active Start: May 02, 2025 Dr. Iraida Balderas MD Primary Care Provider Active Start: May 02, 2025 Team Status: Inactive Member Role/Relationship Status Dates Dr. Blade Milner DO Primary Care Provider Active Start: January 11, 2025 End: January 11, 2025 Dr. Blade NULL MD Attending Provider Active Start: January 11, 2025 End: January 11, 2025 Team Status: Inactive Member Role/Relationship Status Dates Dr. Blade Milner DO Primary Care Provider Active Start: January 31, 2025 End: January 31, 2025 Dr. Marleni Newman DO Attending Provider Active S tart: January 31, 2025 End: January 31, 2025 Dr. Marleni Newman DO Emergency Provider Active S tart: January 31, 2025 End: January 31, 2025 Team Status: Inactive Member Role/Relationship Status Dates Dr. Blade Milner DO Primary Care Provider Active Start: February 01, 2025 End: February 01, 2025 Dr. Blade Milner DO Referring Provider Active Start: February 01, 2025 End: February 01, 2025 Zayda Hanson MANAGER BUSINESS, MANAGER BUSINESS-C Attending Provider Active Start: February 01, 2025 End: February 01, 2025 Team Status: Inactive Member Role/Relationship Status Dates Dr. Blade Milner DO Primary Care Provider Active Start: February 20, 2025 End: February 20, 2025 Dr. Blade NULL MD Attending Provider Active Start: February 20, 2025 End: February 20, 2025 Dr. Blade NULL MD Referring Provider Active Start: February 20, 2025 End: February 20, 2025 Team Status: Inactive Member Role/Relationship Status Dates Dr. Blade Milner DO Primary Care Provider Active Start: February 28, 2025 End: February 28, 2025 Dr. Blade NULL MD Attending Provider Active Start: February 28, 2025 End: February 28, 2025 Dr. Blade NULL MD Referring Provider Active Start: February 28, 2025 End: February 28, 2025 Team Status: Inactive Member Role/Relationship Status Dates Dr. Blade Milner DO Primary Care Provider Active Start: March 08, 2025 End: March 08, 2025 Dr. Blade Milner DO Referring Provider Active Start: March 08, 2025 End: March 08, 2025 Zayda Hanson MANAGER BUSINESS, MANAGER BUSINESS-C Attending Provider Active Start: March 08, 2025 End: March 08, 2025 Team Status: Inactive Member Role/Relationship Status Dates Dr. Blade Milner DO Primary Care Provider Active Start: April 05, 2025 End: April 05, 2025 Dr. Blade Milner DO Referring Provider Active Start: April 05, 2025 End: April 05, 2025 Dr. Jenn Perez MD Attending Provider Active Start: April 05, 2025 End: April 05, 2025 Team Status: Inactive Member Role/Relationship Status Dates Dr. Blade Milner DO Primary Care Provider Active Start: May 02, 2025 End: May 02, 2025 Dr. Blade Milner DO Referring Provider Active Start: May 02, 2025 End: May 02, 2025 Dr. Jenn Perez MD Attending Provider Active Start: May 02, 2025 End: May 02, 2025 Team Status: Active Member Role/Relationship Status Dates Dr. Jenn Perez MD Attending Provider Active Start: May 02, 2025 Dr. Jenn Perez MD Referring Provider Active Start: May 02, 2025 Dr. Iraida Balderas MD Primary Care Provider Active Start: May 02, 2025 Team Status: Active Member Role/Relationship Status Dates Dr. Blade Milner DO Primary Care Provider Active Start: May 09, 2025 Dr. Blade Milner DO Attending Provider Active Start: May 09, 2025 Dr. Blade Milner DO Referring Provider Active Start: May 09, 2025 Team Status: Inactive Member Role/Relationship Status Dates Dr. Blade Milner DO Primary Care Provider Active Start: May 10, 2025 End: May 10, 2025 Dr. Blade Milner DO Referring Provider Active Start: May 10, 2025 End: May 10, 2025 Dr. Oren Olivera MD Attending Provider Active Start: May 10, 2025 End: May 10, 2025 Team Status: Inactive Member Role/Relationship Status Dates Dr. Blade Milner DO Primary Care Provider Active Start: January 31, 2025 End: January 31, 2025 Dr. Marleni Newman DO Attending Provider Active S tart: January 31, 2025 End: January 31, 2025 Dr. Marleni Newman DO Emergency Provider Active S tart: January 31, 2025 End: January 31, 2025 Team Status: Inactive Member Role/Relationship Status Dates Dr. Blade Milner DO Primary Care Provider Active Start: February 01, 2025 End: February 01, 2025 Dr. Blade Milner DO Referring Provider Active Start: February 01, 2025 End: February 01, 2025 Zayda Hanson NP, MANAGER BUSINESS-C Attending Provider Active Start: February 01, 2025 End: February 01, 2025 Team Status: Inactive Member Role/Relationship Status Dates Dr. Blade Milner DO Primary Care Provider Active Start: February 20, 2025 End: February 20, 2025 Dr. Blade NULL MD Attending Provider Active Start: February 20, 2025 End: February 20, 2025 Dr. Blade NULL MD Referring Provider Active Start: February 20, 2025 End: February 20, 2025 Team Status: Inactive Member Role/Relationship Status Dates Dr. Blade Milner DO Primary Care Provider Active Start: February 28, 2025 End: February 28, 2025 Dr. Blade NULL MD Attending Provider Active Start: February 28, 2025 End: February 28, 2025 Dr. Blade NULL MD Referring Provider Active Start: February 28, 2025 End: February 28, 2025 Team Status: Inactive Member Role/Relationship Status Dates Dr. Blade Milner DO Primary Care Provider Active Start: March 08, 2025 End: March 08, 2025 Dr. Blade Milner DO Referring Provider Active Start: March 08, 2025 End: March 08, 2025 Zayda Hanson NP MANAGER BUSINESS-C Attending Provider Active Start: March 08, 2025 End: March 08, 2025 Team Status: Inactive Member Role/Relationship Status Dates Dr. Blade Milner DO Primary Care Provider Active Start: April 05, 2025 End: April 05, 2025 Dr. Blade Milner DO Referring Provider Active Start: April 05, 2025 End: April 05, 2025 Dr. Jenn Perez MD Attending Provider Active Start: April 05, 2025 End: April 05, 2025 Team Status: Inactive Member Role/Relationship Status Dates Dr. Blade Milner DO Primary Care Provider Active Start: May 02, 2025 End: May 02, 2025 Dr. Blade Milner DO Referring Provider Active Start: May 02, 2025 End: May 02, 2025 Dr. Jenn Perez MD Attending Provider Active Start: May 02, 2025 End: May 02, 2025 Team Status: Inactive Member Role/Relationship Status Dates Dr. Blade Milner DO Primary Care Provider Active Start: May 10, 2025 End: May 10, 2025 Dr. Blade Milner DO Referring Provider Active Start: May 10, 2025 End: May 10, 2025 Dr. Oren Olivera MD Attending Provider Active Start: May 10, 2025 End: May 10, 2025 Team Status: Active Member Role/Relationship Status Dates Dr. Blade Milner DO Primary Care Provider Active Start: May 29, 2025 Dr. Blade Milner DO Attending Provider Active Start: May 29, 2025 Dr. Blade Milner DO Referring Provider Active Start: May 29, 2025 Team Status: Inactive Member Role/Relationship Status Dates Dr. Blade Milner DO Primary Care Provider Active Start: May 31, 2025 End: May 31, 2025 Dr. Blade Milner DO Referring Provider Active Start: May 31, 2025 End: May 31, 2025 Dr. Jenn Perez MD Attending Provider Active Start: May 31, 2025 End: May 31, 2025 Team Status: Active Member Role/Relationship Status Dates Dr. Jenn Perez MD Attending Provider Active Start: May 31, 2025 Dr. Jenn Perez MD Referring Provider Active Start: May 31, 2025 Dr. Iraida Balderas MD Primary Care Provider Active Start: May 31, 2025 Team Status: Active Member Role/Relationship Status Dates Dr. Blade Milner DO Primary care physician Active Team Status: Inactive Member Role/Relationship Status Dates Dr. Balde Milner DO Primary care physician Active Start: February 28, 2025 End: February 28, 2025 Dr. Blade NULL MD Attending physician Active Start: February 28, 2025 End: February 28, 2025 Dr. Blade NULL MD Referring Provider Active Start: February 28, 2025 End: February 28, 2025 Team Status: Inactive Member Role/Relationship Status Dates Dr. Blade Milner DO Primary care physician Active Start: March 08, 2025 End: March 08, 2025 Dr. Blade Milner DO Referring Provider Active Start: March 08, 2025 End: March 08, 2025 Zayda Hanson MANAGER BUSINESS, MANAGER BUSINESS-C Attending physician Active Start: March 08, 2025 End: March 08, 2025 Team Status: Inactive Member Role/Relationship Status Dates Dr. Blade Milner DO Primary care physician Active Start: April 05, 2025 End: April 05, 2025 Dr. Blade Milner DO Referring Provider Active Start: April 05, 2025 End: April 05, 2025 Dr. Jenn Perez MD Attending physician Active Start: April 05, 2025 End: April 05, 2025 Team Status: Inactive Member Role/Relationship Status Dates Dr. Blade Milner DO Primary care physician Active Start: May 02, 2025 End: May 02, 2025 Dr. Blade Milner DO Referring Provider Active Start: May 02, 2025 End: May 02, 2025 Dr. Jenn Perez MD Attending physician Active Start: May 02, 2025 End: May 02, 2025 Team Status: Inactive Member Role/Relationship Status Dates Dr. Blade Milner DO Primary care physician Active Start: May 10, 2025 End: May 10, 2025 Dr. Blade Milner DO Referring Provider Active Start: May 10, 2025 End: May 10, 2025 Dr. Oren Olivera MD Attending physician Active Start: May 10, 2025 End: May 10, 2025 Team Status: Inactive Member Role/Relationship Status Dates Dr. Blade Milner DO Primary care physician Active Start: May 31, 2025 End: May 31, 2025 Dr. Blade Milner DO Referring Provider Active Start: May 31, 2025 End: May 31, 2025 Dr. Jenn Perez MD Attending physician Active Start: May 31, 2025 End: May 31, 2025 Team Status: Active Member Role/Relationship Status Dates Dr. Blade Milner DO Primary care physician Active Start: June 27, 2025 Dr. Blade Milner DO Attending physician Active Start: June 27, 2025 Dr. Blade Milner DO Referring Provider Active Start: June 27, 2025 Team Status: Inactive Member Role/Relationship Status Dates Dr. Blade Milner DO Primary care physician Active Start: June 28, 2025 End: June 28, 2025 Dr. Blade Milner DO Referring Provider Active Start: June 28, 2025 End: June 28, 2025 Zayda Hanson MANAGER BUSINESS, MANAGER BUSINESS-C Attending physician Active Start: June 28, 2025 End: June 28, 2025 Team Status: Active Member Role/Relationship Status Dates Dr. Jenn Perez MD Attending physician Active Start: June 28, 2025 Dr. Jenn Perez MD Referring Provider Active Start: June 28, 2025 Dr. Iraida Balderas MD Primary care physician Active Start: June 28, 2025 Scheduled Active and Recently Administ ered [...] Alise Junior RN)1202 (Given - Provider: Evans Montero, JOHN)1652 (Given - Provider: Evans Montero, RN)2243 (Given - Provider: Gracy Mack RN) [...] Herbert RN) 0845 (Given - Provider: Alise Junoir RN) dexAMETHasone (DECADRON) tablet 2 mg (COMPLETED) 2 mg, oral, Daily, First dose on Wed11/21/22 at 0900, For 24 hours 0815 (Given - Provider: iLa Barnett LPN) levothyroxine (SYNTHROID, LEVOTHROID) tablet 88 [...] 2100 0825 (Given - Provider: Swapna Chirinos RN)2140 (Given - Provider: Liset Herbert RN) 08 (Given - Provider: Alise Junior RN)2100 (Given - Provider: Gracy Mack, RN) 1024 (Given - Provider: Lia Barnett [...] 17 g, oral, Daily, First dose on Wed11/15/22 at 0300 0823 (Given - Provider: Swapna [...] oral, 2 times daily, First dose on Wed11/15/22 at 0300 0825 (Given - Provider: Swapna Chirinos RN)2140 (Given - Provider: Liset Herbert RN) 08 (Given - Provider: Alise Junior RN)2100 (Given [...] Patient/Resident/Age nt refused - education provided ) 857 (Not Given - Provider: Alise Junior RN - Reason: Loss of IV access)2100 (Given - Provider: Gracy Mack RN) 08 (Not Given - Provider: Lia Barnett LPN [...] Hart RN) 0631 (Given - Provider: Gracy Mack, RN) ondansetron (PF) (ZOFRAN) injection 4 mg(Linked [...] at 1833, 2nd Line Option: -ONLY give DE if patient is unable to take orally. -If inadequate response within 30 minutes, proceed to next-line agent or contact provider if no further options ordered. promethazine (PHENERGAN) tablet 25 mg(Linked Group 4) 25 mg, oral, Every 6 hours PRN, nausea, vomiting, Starting on Wed11/11/22 at 1833, 2nd Line Option: -Give DE if patient is unable to take orally. [...] mg, oral, Nightly PRN, sleep, Starting on Wed11/21/22 at 1327 Linked Groups Order Group 1: [...] Wed11/11/22 at 1833
2nd Line Option: -Give DE if patient is unable to take orally. -If inadequate response within 30 minutes, proceed to next-line agent or contact provider if no further options ordered.
Or promethazine (PHENERGAN) suppository 25 mgJump to med 25 mg, rectal, Every 12 hours PRN, nausea, vomiting, Starting on Wed11/11/22 at 1833
2nd Line Option: -ONLY give DE if patient is unable to take orally. -If inadequate response within 30 minutes, proceed to next-line agent or contact provider if no further options ordered.
Scheduled Medication Order 12/07/2022 12/08/2022 12/09/2022 amLODIPine (NORVASC) tablet 10 mg 10 mg, oral, Daily, First dose on Wed12/02/22 at 0900 0913 (Given - Provider: Remedios Ward RN) 0820 (Not Given - Provider: Swapna Chirinos RN - Reason: Patient/Resident/Agen t refused - education provided ) 0803 (Given - Provider: Felicia Armijo RN) atorvastatin (LIPITOR) tablet 10 mg 10 mg, oral, Daily, First dose on Wed12/02/22 at 0900 0913 (Given - Provider: Remedios Ward RN) 0820 (Given - Provider: Swapna Chirinos, JOHN) 0803 (Given - Provider: Felicia Armijo RN) ceFAZolin (ANCEF) 1 gram/10 mL IV syringe 1 g (COMPLETED) 1 g, intravenous, Administer over 3 Minutes, Every 8 hours, First dose on Wed12/02/22 at 0030, For 7 days, Indication: Skin/Soft Tissue 0012 (Given - Provider: Osmin Castro RN)0909 (Given - Provider: Remedios Ward RN)1733 (Given - Provider: Remedios Ward, JOHN)2352 (Given - Provider: Osmin Castro, JOHN) 0821 (Given - Provider: Swapna Chirinos RN)1642 (Given - Provider: Swapna Chirinos, JOHN) enoxaparin (LOVENOX) injection 40 mg 40 mg, subcutaneous, Daily, First dose on Wed12/05/22 at 1245, Indication: VTE/PE Prophylaxis 0908 (Given - Provider: Remedios Ward RN) 08 (Given - Provider: Swapna Chirinos RN) 0804 [...] 0002 0913 (Given - Provider: Remedios Ward RN)2055 (Given - Provider: Osmin Castro RN) 08 (Not Given - Provider: Swapna Chirinos RN - Reason: Patient/Resident/Agen t refused - education provided )2149 (Given - Provider: Zofia Cummings LPN) 0803 (Given - Provider: Felicia Armijo RN) pantoprazole (PROTONIX) EC tablet 40 mg [...] at 1430 1423 (Given - Provider: Felicia Armijo RN) senna-docusate (PERICOLACE) 8.6-50 mg per tablet 1 [...] Chirinos RN)1641 (Given - Provider: Swapna Chirinos RN)2150 (Given - Provider: Zofia Cummings LPN) 0803 (Given - Provider: Felicia Armijo RN) sodium chloride 0.9 % flush 10 mL(Linked Group 1) 10 mL, intravenous, 2 times daily, First dose on Wed12/02/22 at 0001 0914 (Given - Provider: Remedios Ward RN)2100 (Given - Provider: Osmin Castro RN) 0820 (Given - Provider: Swapna Chirinos RN)2151 (Given - Provider: Zofia Cummings LPN) 0804 (Given - Provider: Felicia Armijo RN) PRN Medication Order 12/07/2022 12/08/2022 12/09/2022 acetaminophen (TYLENOL) tablet 650 mg 650 mg, oral, Every 6 hours PRN, mild pain, Starting on Wed12/02/22 at 0000 0530 (Given - Provider: Osmin Castro RN)1431 (Given - Provider: Remedios Ward RN) 2150 [...] at 0000, 2nd Line Option: -ONLY give DE if patient is unable to take orally [...] at 0000
2nd Line Option: -ONLY give DE if patient is unable to take orally [...] 1047 (Given - Provider: Remedios Ward RN) atorvastatin (LIPITOR) tablet 10 mg 10 mg, oral, Daily, First dose on Wed12/18/22 at 0900 0840 (Given - Provider: Poncho Claros RN) 1047 (Given - Provider: Remedios Ward, JOHN) cholecalciferol (VITAMIN D-3) capsule 50,000 Units 50,000 [...] 4 days 0056 (Given - Provider: Na Tran RN)2049 (Given - Provider: Jayde Aceves, JOHN) metoprolol tartrate (LOPRESSOR) tablet 50 mg 50 mg, oral, 2 times daily, First dose on Wed12/18/22 at 0045 0056 (Given - Provider: Na Tran, RN)0840 (Given - Provider: Poncho Claros RN)2050 (Given - Provider: Jayde Aceves, RN) 1047 (Given - Provider: Remedios Ward, JOHN) pantoprazole (PROTONIX) EC tablet 40 mg 40 mg, oral, Every morning before breakfast, First dose on Wed12/18/22 at 0700, Do not crush, chew, or split. 0752 (Given - Provider: Jayde Aceves, JOHN) 0622 (Given - Provider: Jayde Aceves, RN) polyethylene glycol (MIRALAX) packet 17 g 17 g, oral, Daily, First dose on Wed12/18/22 at 0900, Dissolve in 240 mLs (8 ounces) of water or sports drink prior to giving. 0840 (Given - Provider: Poncho Claros RN) 1046 (Given - Provider: Remedios Ward, RN) senna (SENOKOT) tablet 8.6 mg 8.6 mg (1 tablet), oral, 2 times daily, First dose on Wed12/18/22 at 0045 0056 (Not Given - Provider: Na Tran RN - Reason: Other - Comment: pt has had loose stools all night er the ED nurse)0840 (Given - Provider: Poncho Claros RN)2050 (Given - Provider: Jayde Aceves, JOHN) 1047 (Given - Provider: Remedios Ward, RN) sodium chloride 0.9 % flush 10 mL(Linked Group 1) 10 mL, intravenous, 2 times daily, First dose on Wed12/18/22 at 0045 0057 (Given - Provider: Na Tran RN)0839 (Given - Provider: Poncho Claros RN)205 (Given - Provider: Jayde Aceves, RN) 1047 (Given - Provider: Remedios Ward, [...] Claros RN) 0222 (Given - Provider: Jayde Aceves, JOHN) sodium chloride 0.9 % flush 10 [...] or prosecute any alcohol or drug abuse patient.[facility] the event this information is protected by the Federal Confidentiality of Alcohol and Drug Abuse Patient Records regulations: The Federal rules restrict any use of the information to criminally investigate or prosecute any alcohol or drug abuse patient.[facility] the event this information is protected by the Federal Confidentiality of Alcohol and Drug Abuse Patient Records regulations: The Federal rules restrict any use of the information to criminally investigate or prosecute any alcohol or drug abuse patient.[facility] the event this information is protected by the Federal Confidentiality of Alcohol and Drug Abuse Patient Records regulations: The Federal rules restrict any use of the information to criminally investigate or prosecute any alcohol or drug abuse patient.[facility] the event this information is protected by the Federal Confidentiality of Alcohol and Drug Abuse Patient Records regulations: The Federal rules restrict any use of the information to criminally investigate or prosecute any alcohol or drug abuse patient.[facility] the event this information is protected by the Federal Confidentiality of Alcohol and Drug Abuse Patient Records regulations: The Federal rules restrict any use of the information to criminally investigate or prosecute any alcohol or drug abuse patient.[facility] Center[facility] the event this information is protected by the Federal Confidentiality of Alcohol and Drug Abuse Patient Records regulations: The Federal rules restrict any use of the information to criminally investigate or prosecute any alcohol or drug abuse patient.[facility] FOR RECORDS PERTAINING TO PATIENTS WHO ARE [...] BE BASED ON THE PRIMARY CLINICAL RECORDS. [facility] [employer] [facility]. provides no warranty or guarantee of the accuracy or completeness of information in this document.
[2025-07-20 11:14] LABS: Hematocrit 39.9 % (40-54); Hemoglobin 13.1 g/dL (13.0-16.5); Mean Corp Hgb Conc 32.8 g/dL (32-36); Mean Corpuscular Volume 89.7 fL (80-94); Mean Platelet Vol. 12.5 fl (6.2-12.0); Platelet Count 112 K/mm3 (150-450); RBC Distribution Width CV 14.6 % (11.6-14.6); RBC Distribution Width SD 48.0 fl (35.1-43.9); Red Blood Count 4.45 M/mm3 (4.6-6.2); White Blood Count 3.1 K/mm3 (4.4-11.0)
== END ==
DX: I10 Essential (primary) hypertension (principal); E03.9 Hypothyroidism, unspecified
CPT/HCPCS: 36415; 85027

== ENCOUNTER 2025-07-23 10:09 | Emergency (ER) | payer MEDICARE, OTHER, SELFPAY ==
[2025-07-23 10:10] VITALS: BP 127/93; PULSE 59; RESP 18; TEMP 36.4; O2SAT 100
[2025-07-23 10:30] VITALS: BMI 30.2
--- NOTE | 2025-07-23 11:06 | CT_ITS ---
PROCEDURE: ABDOMEN/PELVIS WITH CONTRAST 07/23/2025 REASON FOR EXAM: ABDOMINAL PAIN AND DISTENTION TECHNIQUE: Procedure Code: [id number] Modality: CT Procedure: ABDOMEN/PELVIS WITH CONTRAST Coronal and Sagittal reconstruction series were provided. CONTRAST: Isovue 370 VOLUME: 75 mL One or more dose reduction techniques were used (e.g., Automated exposure control, adjustment of the mA and/or kV according to patient size, use of iterative reconstruction technique. RADIATION DOSE SUMMARY: CTDlvol: 14.95 mGy DLP: 646.44 mGycm COMPARISON: CT abdomen and pelvis January 31, 2025. FINDINGS: Lung bases: Clear. Liver: Unremarkable. Gallbladder: Status post cholecystectomy. No biliary dilation. Spleen: Unremarkable. Pancreas: Unremarkable. Adrenals: Unremarkable. Kidneys: A 5.5 cm cyst at the lower pole of the left kidney. A 2 mm stone in the lower pole of the right kidney. No hydronephrosis. Bladder: Unremarkable. Reproductive Organs: Unremarkable. Bowel: No bowel wall thickening. No bowel obstruction. Appendix: No evidence of acute appendicitis. Lymph nodes: No lymphadenopathy. Vasculature: No aneurysm. Atherosclerotic calcifications. Peritoneum / Retroperitoneum: No free air or free fluid. Bones: No acute bony abnormalities. CT/Abdomen/Pelvis WITH Contrast IMPRESSION: No acute abdominopelvic abnormalities. A 2 mm stone in the lower pole of the right kidney. No hydronephrosis. Reading Location: [facility]
--- NOTE | 2025-07-23 11:07 | RAD_ITS ---
PROCEDURE: CHEST 1 VIEW (PORTABLE) 07/23/2025 REASON FOR EXAM: COUGH TECHNIQUE: Frontal view of the chest. COMPARISON: None FINDINGS: Hardware: Right-sided port a catheter is seen with the tip in the right atrium. Heart: Borderline cardiomegaly. Lungs: The lungs are clear. Bones: Prior fusion of the lower cervical spine. RAD/Chest 1 View (Portable) IMPRESSION: No Acute Findings. Reading Location: [facility]
--- NOTE | 2025-07-23 11:07 | EX.ED.DYSGE1 ---
HPI History of Present Illness Chief Complaint: Abd Pain Narrative Narrative: 70-year-old male history of multiple myeloma, neuropathy, abdominal bloating presenting to emergency department for complaint of abdominal pain. Patient states that he has been having abdominal pain with bloating and distention over the past 2 years but states that it seems worse over the past week. Patient has been on antibiotic for almost a year after back surgery a year ago and was just taken off his antibiotics 2 weeks ago. Patient states he is concerned he possibly has an infection. States that he is passing gas and having bowel movements. States that he has a large prostate has occasional urinary retention and straight caths at home follows with urology. Denies any urinary retention today, bowel or bladder incontinence, fevers, saddle anesthesia. States his bowel movements are otherwise regular at last bowel movement yesterday denying any vomiting. Has an occasional cough. Denying any chest pain or shortness of breath. 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 History of radiation therapy Non-healing surgical wound Paraplegia Anemia Multiple myeloma DVT (deep venous thrombosis) Back pain Hypothyroidism Hypertension Hypercholesteremia Home Medications ?Medication ?Instructions ?Recorded ?Last Taken ?Type acyclovir 400 mg tablet 400 mg PO Q12H virus 07/08/23 Unknown History amlodipine 10 mg tablet 10 mg PO DAILY bp 07/08/23 Unknown History ascorbic acid (vitamin C) 1,000 mg 1 g PO BID supplement 07/08/23 Unknown History tablet cholecalciferol (vitamin D3) 125 125 mcg PO DAILY supplement 07/08/23 Unknown History mcg (5,000 unit) capsule gabapentin 100 mg capsule 100 mg PO TID back 07/08/23 Unknown History magnesium oxide 250 mg PO .noon bowel health 07/08/23 Unknown History melatonin 3 mg capsule 6 mg PO HS sleep 07/08/23 Unknown History metoprolol tartrate 50 mg tablet 50 mg PO BID BP 07/08/23 Unknown History omeprazole 20 mg tablet,delayed 20 mg PO DAILY gerd 07/08/23 Unknown History release Disability Placard #1 ea 07/12/23 Unknown Rx apixaban 5 mg tablet (Eliquis) 5 mg PO BID vte prophylaxis 07/17/23 Unknown History baclofen 5 mg tablet 5 mg PO BID back pain 08/12/23 Unknown History calcium carbonate 600 mg PO BID supplement 08/12/23 Unknown History lenalidomide 15 mg capsule 15 mg .Route .COMPLEX #21 CAPSULES 04/04/24 Unknown Rx (Revlimid) benzonatate 200 mg capsule 200 mg PO BID-TID PRN 09/13/24 Unknown History acetaminophen 500 mg tablet 1,000 mg PO QMONTH 02/01/25 Unknown History amoxicillin 500 mg capsule 500 mg PO BID 02/01/25 Unknown History dexamethasone 4 mg tablet 20 mg PO QMONTH 02/01/25 Unknown History diphenhydramine HCl 25 mg tablet 25 mg PO QMONTH 02/01/25 Unknown History (Allergy (diphenhydramine)) doxycycline hyclate 100 mg capsule 100 mg PO BID 02/01/25 Unknown History levothyroxine 112 mcg tablet 112 mcg PO DAILY 02/01/25 Unknown History magnesium hydroxide 2,400 mg/10 mL 30 ml PO QDAY PRN 02/01/25 Unknown History oral suspension (Milk Of Magnesia Concentrated) polyethylene glycol 3350 17 gram 17 g PO QDAY 02/01/25 Unknown History oral powder packet simethicone 180 mg capsule 180 mg PO TID PRN 02/01/25 Unknown History lactulose 10 gram/15 mL oral 20 g PO .QOD 06/28/25 Unknown History solution Allergy/AdvReac Type Severity Reaction Status Date / Time No Known Allergies Allergy Verified 07/23/25 10:12 Family History Mother Follicular lymphoma Father Hypertension Heart disease Brother Hypertension Other Cancer Surgical History History of back surgery History of tooth extraction H/O laminectomy History of cholecystectomy Social History housing: assisted living facility Smoking Status: Never smoker alcohol intake: former substance use type: does not use EXAM Physical Exam Narrative Exam Narrative: Well-appearing, no acute distress, alert and oriented x 3 Const Vital Signs: 07/23/25 10:10 07/23/25 12:09 07/23/25 14:00 Temperature 97.6 F L 98 F Temperature Source Temporal Oral Pulse Rate 59 L 53 L 51 L Respiratory Rate 18 18 18 Blood Pressure 127/93 H 130/74 H 105/74 Blood Pressure Mean 104 92 84 Pulse Ox 100 100 100 Oxygen Delivery Method Room Air Room Air 07/23/25 14:22 Temperature 98 F Temperature Source Pulse Rate 51 L Respiratory Rate 18 Blood Pressure 105/74 Blood Pressure Mean 84 Pulse Ox 100 Oxygen Delivery Method Chest Wall inspection of chest normal and palpation of chest normal Resp normal respiratory effort and clear to auscultation bilaterally Auscultation: Negative for rhonchi or wheezes Cardio regular rate, regular rhythm and no murmurs GI Inspection: abdominal distention Auscultation: normoactive bowel sounds Palpation: Negative for tender, guarding or mass Back/Spine no CVA tenderness Extremity General Extremety ED: Negative for edema or tenderness General Extremity: Negative for edema Neuro oriented x3, CN's II-XII intact bilaterally and no sensory deficits noted Sensorium / Orientation: alert and orientation impaired Motor Exam: strength 5/5 throughout MDM MDM MDM Narrative Medical decision making narrative: 70-year-old male history of multiple myeloma, neuropathy, abdominal bloating presenting to emergency department for complaint of abdominal pain. Patient states that he has been having abdominal pain with bloating and distention over the past 2 years but states that it seems worse over the past week. Patient has been on antibiotic for almost a year after back surgery a year ago and was just taken off his antibiotics 2 weeks ago. Patient states he is concerned he possibly has an infection. States that he is passing gas and having bowel movements. States that he has a large prostate has occasional urinary retention and straight caths at home follows with urology. Denies any urinary retention today, bowel or bladder incontinence, fevers, saddle anesthesia. States his bowel movements are otherwise regular at last bowel movement yesterday denying any vomiting. Has an occasional cough. Denying any chest pain or shortness of breath. On my physical exam patient having no neurological deficits, 5 out of 5 strength bilateral lower extremities with sensation intact. No midline lumbar tenderness. Patient not having any urinary retention voiding without difficulty urinalysis negative for urinary tract infection. Labs large unremarkable no evidence of leukocytosis or large infection. Vitals within normal limits not meeting any SIRS criteria low suspicion for sepsis. CT abdomen pelvis showing no evidence of acute abdominal pathology. On reevaluation patient moving all extremities no acute distress and symptoms have been ongoing for months. Discussed with patient I do not see any evidence of infectious etiology low suspicion for epidural spinal abscess or cauda equina. Patient does have good follow-up with neurosurgery, infectious disease and PCP whom I recommended following with. Strict return precautions given. Agreeable for discharge. 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 Lab results narrative: Labs showing glucose of 105, no leukocytosis, hemoglobin stable at 13.2 Labs: Laboratory Results - last 24 hr 07/23/25 07/23/25 11:20 12:02 WBC 5.7 RBC 4.69 Hgb 13.2 Hct 41.0 MCV 87.4 MCH 28.1 MCHC 32.2 RDW Std Deviation 45.1 H RDW Coeff of Hattie 14.2 Plt Count 170 MPV 10.5 Immature Gran % (Auto) 0.500 Neut % (Auto) 78.8 H Lymph % (Auto) 8.1 L Maury % (Auto) 9.9 Eos % (Auto) 1.8 Baso % (Auto) 0.9 Absolute Neuts (auto) 4.5 Absolute Lymphs (auto) 0.46 L Nucleated RBC % 0 Sodium 139 Potassium 4.2 Chloride 103 Carbon Dioxide 27.5 Anion Gap 9 BUN 14 Creatinine 0.87 Estim Creat Clear Calc 80.25 Est GFR (MDRD) Non-Af 94 BUN/Creatinine Ratio 15.7 Glucose 105 H Lactic Acid < 1.0 Calcium 9.0 Total Bilirubin 0.30 Direct Bilirubin 0.13 AST 21 ALT 17 Alkaline Phosphatase 53 Total Protein 5.7 L Albumin 3.9 Globulin 1.9 L Lipase 78 H Urine Color Yellow Urine Clarity Clear Urine pH 7.0 Ur Specific [place] 1.010 Urine Protein 15 H Urine Glucose (UA) Normal Urine Ketones Negative Urine Occult Blood Negative Urine Nitrite Negative Urine Bilirubin Negative Urine Urobilinogen Normal Ur Leukocyte Esterase Negative Radiography Diagnostic Testing: Clinical Impression(s) from Imaging Studies Abdomen/Pelvis CT 07/23/25 11:06 IMPRESSION: No acute abdominopelvic abnormalities. A 2 mm stone in the lower pole of the right kidney. No hydronephrosis. Reading Location: [facility] Chest X-Ray 07/23/25 11:07 IMPRESSION: No Acute Findings. Reading Location: [id number] abdomen pelvis independently interpreted by myself showing no evidence of acute abdominal pathology. Chest x-ray showing no evidence of infectious etiology or acute cardiopulmonary process EKG Initial EKG: Attestation: I personally reviewed and interpreted this EKG as follows: Comments: EKG independently interpreted by myself showing sinus bradycardia, ventricular rate 45, GA 142, QTc 377. Normal axis. No signs of ST elevation depression or T wave versions consistent with ischemia Prior EKG tracings: not available for review Critical Care Time Critical Care Time: Yes Critical care time (excluding procedures): 30-74 minutes, Including time spent: (45), Discussing w/Patient &/or Family/Mail Deliverer, Discussing w/Consultants, Arranging Admission or Transfer and Performing Direct Patient Care at Bedside Discharge Plan Triage Chief Complaint: Abd Pain ED Provider: Jamila Giordano Dx/Rx/DC Orders Clinical Impression: Abdominal bloating Prescriptions: No Action acyclovir 400 mg tablet 400 mg PO Q12H amlodipine 10 mg tablet 10 mg PO DAILY gabapentin 100 mg capsule 100 mg PO TID magnesium oxide 400 mg magnesium tablet 250 mg PO .noon melatonin 3 mg capsule 6 mg PO HS metoprolol tartrate 50 mg tablet 50 mg PO BID omeprazole 20 mg tablet,delayed release (DR/EC) 20 mg PO DAILY Patient Comments: Do not take with Vitamin C or Vitamin D together. ascorbic acid (vitamin C) 1,000 mg tablet 1 g PO BID cholecalciferol (vitamin D3) 125 mcg (5,000 unit) capsule 125 mcg PO DAILY benzonatate 200 mg capsule 200 mg PO BID-TID PRN amoxicillin 500 mg capsule 500 mg PO BID Rx Instructions: 6-12 month Tx access in 2-3 months dexamethasone 4 mg tablet 20 mg PO QMONTH diphenhydramine HCl [Allergy (diphenhydramine)] 25 mg tablet 25 mg PO QMONTH doxycycline hyclate 100 mg capsule 100 mg PO BID Patient Comments: 6-12 month Tx access in 2-3 months magnesium hydroxide [Milk Of Magnesia Concentrated] 2,400 mg/10 mL suspension 30 ml PO QDAY PRN polyethylene glycol 3350 17 gram powder in packet 17 g PO QDAY simethicone 180 mg capsule 180 mg PO TID PRN levothyroxine 112 mcg tablet 112 mcg PO DAILY acetaminophen 500 mg tablet 1,000 mg PO QMONTH lactulose 10 gram/15 mL solution 20 g PO .QOD Eliquis 5 mg tablet 5 mg PO BID baclofen 5 mg tablet 5 mg PO BID calcium carbonate 600 mg calcium (1,500 mg) tablet 600 mg PO BID (DME) Disability Placard See Rx Instructions .Route .MEDSUPPLY Qty: 1 0RF Rx Instructions: Lifetime lenalidomide [Revlimid] 15 mg capsule 15 mg .ROUTE .COMPLEX Qty: 21 6RF Rx Instructions: 15 mg; 3 weeks on then 1 week rest Primary Care Provider: Christian Milner Referrals: Christian Milner DO [Non-Staff, Medical] Activity Restrictions/Additional Instructions: Please follow-up with your primary care within the next week regarding your visit today. Return emergency room for any worsening symptoms, unable to urinate, not passing gas or decreased bowel movements, vomiting, fevers. Print Language: Turkish Disposition Disposition: Home, Self Care Discharge Date/Time: 07/23/25 14:23 Capacity Capacity Assessment Tool Patient lacks Decision Making Capacity: unable to understand, reason and deliberate health related choices: Yes Risk to self and or others?: Yes Risk of leaving the patient care unit and or hospital?: Yes
[2025-07-23 11:40] LABS: Color, Urine Yellow (Yellow); Glucose, Dipstick Normal (Normal); Ketone-Dipstick Negative (Negative); Leukocyte Esterase-Dipstick Negative /ul (Negative); Nitrite-Dipstick Negative (Negative); Occult Blood-Urine Negative /ul (Negative); Protein-Dipstick 15 mg/dl (Negative); Specific Gravity, Urine 1.010 (1.002-1.030); Urine Bilirubin Dipstick Negative (Negative)
[2025-07-23 12:09] VITALS: BP 130/74; PULSE 53; RESP 18; O2SAT 100
[2025-07-23 12:19] LABS: Hematocrit 41.0 % (40-54); Hemoglobin 13.2 g/dL (13.0-16.5); Immature Granulocytes Count 0.030 X10^3/uL (0.0-0.0); Mean Corp Hgb Conc 32.2 g/dL (32-36); Mean Corpuscular Volume 87.4 fL (80-94); Mean Platelet Vol. 10.5 fl (6.2-12.0); NRBC Flagged by Analyzer 0 % (0-5); POSITIVE DIFFERENTIAL YES; Platelet Count 170 K/mm3 (150-450); RBC Distribution Width CV 14.2 % (11.6-14.6); RBC Distribution Width SD 45.1 fl (35.1-43.9); Red Blood Count 4.69 M/mm3 (4.6-6.2); White Blood Count 5.7 K/mm3 (4.4-11.0)
[2025-07-23 12:37] LABS: AST(SGOT) 21 U/L (<=37); Alanine Aminotransfer ALT/SGPT 17 U/L (<=46); Albumin, Serum 3.9 g/dL (3.4-4.8); Alkaline Phosphatase 53 U/L (40-129); Anion Gap 9 (5-15); BUN 14 mg/dL (4-19); BUN/Creat Ratio 15.7 RATIO (10-20); Bilirubin, Direct 0.13 mg/dL (0.00-0.30); Calcium,Total 9.0 mg/dL (7.6-11.0); Carbon Dioxide 27.5 mmol/L (21.0-32.0); Chloride 103 mmol/L (98-108); Estimated Creatinine Clearance 80.25 ml/min (50-250); Globulin 1.9 g/dL (2.2-4.2); Glucose 105 mg/dL (70-99); Lipase 78 U/L (13-75); Potassium 4.2 mmol/L (3.3-5.1)
[2025-07-23 14:00] VITALS: BP 105/74; PULSE 51; RESP 18; TEMP 36.6; O2SAT 100
[2025-07-23 14:22] VITALS: BP 105/74; PULSE 51; RESP 18; TEMP 36.6; O2SAT 100
== END 2025-07-23 14:23 | disposition home or self-care (01) ==
PROVIDERS: Emergency Provider Student in an Organized Health Care Education/Training Program; PCP Family Medicine; Visit Provider Student in an Organized Health Care Education/Training Program
DX: R10.9 Unspecified abdominal pain (principal); I10 Essential (primary) hypertension; Z86.718 Personal history of other venous thrombosis and embolism; E78.00 Pure hypercholesterolemia, unspecified; Z79.899 Other long term (current) drug therapy; Z79.01 Long term (current) use of anticoagulants; E03.9 Hypothyroidism, unspecified; Z79.890 Hormone replacement therapy; Z90.49 Acquired absence of other specified parts of digestive tract
CPT/HCPCS: 36591; 71045; 74177; 80048; 80076; 81002; 83605; 83690; 85025; 87086; 87088; 93005; 99282; Q9967; A4216

== ENCOUNTER 2025-08-22 10:00 | Outpatient (RCR) | payer MEDICARE, OTHER, SELFPAY ==
--- NOTE | 2025-04-18 12:01 | HP.PTEVAL ---
Patient's Visit Information Visit Information Visit Information: ARCHEAL BURLESON is a 69 year old M referred to Physical Therapy by Dr. Christian Milner DO with a diagnosis of Debility. Date of Evaluation: 04/18/25 Physical Therapist: Luis Manuel Cano, PT, ATC Visit Plan Frequency: 2x /Week Duration: 4-6 Weeks Plan: B LE strengthening, balance and proprio, gait training, stair negotiation, nustep, and HEP Subjective Subjective: Pt reports he was Dx'd with Multiple myeloma 2 years ago. Pt reports he had surgery from his neck to his back. pt has had multiple surgeries since then. Pt reports he was in the hospital for 10 days after his surgery, and has been in [place] ever since. Pt notes he is here today because he needs to become more independent so that he can transfer back home. Pt hopes to be able to live in an apartment soon. Pt notes he is taking approximately 3 thousand steps per day, but he still is limited secondary to weakness and fatigue. Pt notes he works out at his assisted living gym on most days. Pt reports he is able to perform most ADL's, but still needs help with bathing. Pt has not attempted stairs at this time as there are none at his facility. Pt also has not been assessed for driving at this time secondary to not being able to lift walker into car. Pt denies tingling or numbness in LE's other than his feet. Pt denies being in pain this date. Objective Objective: TU sec Neuro: B LE sensation is WNL to light touch. ROM: B LE's are WFL when compared bilaterally MMT: B LE's are grossly 4+/5 with the exception of knee flex and hip flex= 4-/5 6 min walk test: 750 feet with rollator Balance/Special Test Scores Lower Extremity Functional Score: 33 Goals Goal 1:: Pt will perform the TUG test in under 10 sec with LRD Goal Time Frame: 4-6 Weeks Goal 2:: Pt will be able to ambulate greater than 1000 feet to aid with I with mobility Goal Time Frame: 4-6 Weeks Goal 3:: Pt will negotiate 10 stairs with 1 handrail to aid with I in the community. Goal Time Frame: 4-6 Weeks Goal 4:: I with HEP Goal Time Frame: 4-6 Weeks Rehabilitation Potential Physical Therapy Diagnosis: Pt has difficulty with gait, B LE weakness, and is unable to live I at this time secondary to debility Rehabilitation Potential: Good Anticipated Interventions Patient/Client Instruction: Educate patient on: Condition and Plan of Care For the Purpose of:: To improve self management Therapeutic Exercise to Include: Strength training, Endurance training, Balance training, Gait and locomotor training, Active ROM and Dynamic Lumbar Stabilization For the Purpose of:: To decrease pain, To increase ROM and To improve muscle performance and motor function Text: Thank you for the opportunity to evaluate your patient. For Medicare and Medicare HMO plans, please review the plan of care and approve it. It will need to be FAXED BACK to us at [phone] for Medicare purposes. For Medicare only, by signing this I certify the plan of care. Please let me know if there are questions or concerns regarding this plan of care. Physician Signature: Date:
--- NOTE | 2025-05-29 16:05 | HP.PTREVAL ---
Re-Evaluation Intro: Dr. Christian Milner, DO, It has been my pleasure to treat RACHEAL BURLESON over the last 9 visits for Debility. Please see the progress note below for an update on the physical therapy plan of care! Subjective Subjective: I have improved a lot in many little ways. Objective Objective/Function: TU.87 sec ambulation: Pt is able to ambulate greater than 1000 feet with rollator without difficulty. stairs: Pt is able to negotiate 10 stairs, but uses 2 handrails and negotiates them one step at a time. Pt is showing excellent progress at this time, but continues to lack functional mobility. Plan Plan Plan: 05/29/25- Cont with B LE strengthening, balance and proprio, gait training, stair negotiation, nustep, and HEP Balance/Gait/Functional tests Balance/Special Test Scores Lower Extremity Functional Score: 40 TUG Test Time Seconds: 13.23 Tug Test: <20 sec.=mostly independent 30 Second Chair Rise Test Seconds: 10 6 Minute Walk Test: 265 meters/870 feet Goals Goals Goal 1:: Pt will perform the TUG test in under 10 sec with LRD Goal Time Frame: 4-6 Weeks Goal Progress: Progressing Goal 2:: Pt will be able to ambulate greater than 1000 feet to aid with I with mobility Goal Time Frame: 4-6 Weeks Goal Progress: Goal Met Goal 3:: Pt will negotiate 10 stairs with 1 handrail to aid with I in the community. Goal Time Frame: 4-6 Weeks Goal Progress: Progressing Goal 4:: I with HEP Goal Time Frame: 4-6 Weeks Goal Progress: Progressing Goal 5:: Pt will display proper posture while ambulating with use of rollator to prevent future falls. Goal Time Frame: 4-6 Weeks Goal Progress: New goal Anticipated Interventions Anticipated Interventions Patient/Client Instruction: Educate patient on: Condition and Plan of Care For the Purpose of:: To improve self management Therapeutic Exercise to Include: Strength training, Endurance training, Balance training, Gait and locomotor training, Active ROM and Dynamic Lumbar Stabilization For the Purpose of:: To decrease pain, To increase ROM and To improve muscle performance and motor function Re-Evaluation Ending Re-evaluation ending: Please do not hesitate to contact me at [phone] by phone or if you have questions or concerns regarding this new plan of care! Sincerely, Luis Manuel Cano, PT, ATC
--- NOTE | 2025-07-04 15:11 | HP.PTREVAL ---
Re-Evaluation Intro: Dr. Christian Milner, DO, It has been my pleasure to treat RACHEAL BURLESON over the last 17 visits for Debility. Please see the progress note below for an update on the physical therapy plan of care! Subjective Subjective: Pt reports he is improving everyday. Pt says he's a lot more confident in ambulating and standing up, and is starting to complete IADLs. Pt says he is becoming more independent, and is walking a lot longer distances. Pt states he is close to being able to live on his own again. Pt states he still struggles with transfers in and out of cars Objective Objective/Function: TUs with rollator Gait: ambulated >1000ft w/rollator with ease. Improved walking posture as compared to last re-check Stairs: ambulated up stairs with 1 handrail; 2 handrails going down. 1 step at a time for both Plan Plan Plan: 07/04/25- Cont with balance and proprio, gait training with a LRD, B LE strengthening, stair negotiation, nustep, and HEP Balance/Gait/Functional tests Balance/Special Test Scores Lower Extremity Functional Score: 41 TUG Test Time Seconds: 13.23 Tug Test: <20 sec.=mostly independent 30 Second Chair Rise Test Seconds: 10 6 Minute Walk Test: 1080 feet Goals Goals Goal 1:: Pt will perform the TUG test in under 10 sec with LRD Goal Time Frame: 4-6 Weeks Goal Progress: Progressing Goal 2:: Pt will be able to ambulate greater than 1000 feet to aid with I with mobility Goal Time Frame: 4-6 Weeks Goal Progress: Goal Met Goal 3:: Pt will negotiate 10 stairs with 1 handrail to aid with I in the community. Goal Time Frame: 4-6 Weeks Goal Progress: Progressing Goal 4:: I with HEP Goal Time Frame: 4-6 Weeks Goal Progress: Progressing Goal 5:: Pt will display proper posture while ambulating with use of rollator to prevent future falls. Goal Time Frame: 4-6 Weeks Goal Progress: Goal Met Goal 6:: Pt will be I with all transfers in order to get in and out of a car efficiently Goal Time Frame: 4-6 Weeks Goal Progress: New goal Anticipated Interventions Anticipated Interventions Patient/Client Instruction: Educate patient on: Condition and Plan of Care For the Purpose of:: To improve self management Therapeutic Exercise to Include: Strength training, Endurance training, Balance training, Gait and locomotor training, Active ROM and Dynamic Lumbar Stabilization For the Purpose of:: To decrease pain, To increase ROM and To improve muscle performance and motor function Re-Evaluation Ending Re-evaluation ending: Please do not hesitate to contact me at [phone] by phone or if you have questions or concerns regarding this new plan of care! Sincerely, Luis Manuel Cano, PT, ATC
--- NOTE | 2025-08-22 10:52 | HP.PTDCSUM ---
Discharge Summary D/C summary: It has been my pleasure to treat RACHEAL BURLESON referred by Dr. Christian Milner DO, with the diagnosis of Debility for a total of 23 visit(s). Discharge Date: Please see the following information for a summary of their discharge status. Subjective Subjective: I am stiff today, but no pain Pain LBP: Pain Intensity (Out of 10): 0 Overall Improvement % Improvement: 75 Objective Objective/Function: TUG 15 sec Pt is able to ambulate greater than 1000 feet without difficulty. Pt is able to negotiate 10 stairs with one handrail Pt is I with HEP and gym routine Pt is I with all transfers. Goals Goal 1:: Pt will perform the TUG test in under 10 sec with LRD Goal Progress: Progressing Goal 2:: Pt will be able to ambulate greater than 1000 feet to aid with I with mobility Goal Progress: Goal Met Goal 3:: Pt will negotiate 10 stairs with 1 handrail to aid with I in the community. Goal Progress: Goal Met Goal 4:: I with HEP Goal Progress: Goal Met Goal 5:: Pt will display proper posture while ambulating with use of rollator to prevent future falls. Goal Progress: Goal Met Goal 6:: Pt will be I with all transfers in order to get in and out of a car efficiently Goal Progress: Goal Met Plan Plan: Discharge to [facility] D/C Information d/c sentence: If there are questions or concerns regarding this patient's physical therapy, please feel free to call me at [phone]. Thank you for the referral of this patient. Sincerely, Luis Manuel Cano, PT, ATC Balance/Gait/Functional tests Balance/Special Test Scores Lower Extremity Functional Score: 39 TUG Test Time Seconds: 13.23 Tug Test: <20 sec.=mostly independent 30 Second Chair Rise Test Seconds: 10 6 Minute Walk Test: 1080 feet Improvement % Improvement: 75
== END 2025-08-22 19:00 | disposition home or self-care (01) ==
LOC: PT 10:00
DX: S22.020D Wedge compression fracture of second thoracic vertebra, subsequent encounter for fracture with routine healing (principal); R53.1 Weakness; M79.10 Myalgia, unspecified site
CPT/HCPCS: 97110; 97116; 97161; 97530